=== PATIENT | female | born 1990 | race Caucasian/White ===

== ENCOUNTER 2017-11-03 12:53 | Emergency (ER) | payer OTHER, SELFPAY ==
[2017-11-03 12:55] VITALS: BP 127/83; PULSE 96; RESP 13; TEMP 37.2; O2SAT 99; BMI 24.1
[2017-11-03] MEDS: 0.9% Normal Saline 1,000 ML 999 ML IV (13:12)
[2017-11-03 13:20] LABS: Absolute Lymphocyte Count 1.51 X10^3/ul (0.83-4.51); Absolute Neutrophil Count 4.6 X10^3/uL (2.0-7.7); Basophil# 0.02 X10^3/uL; Basophil% 0.3 % (0-1); Eosinophil# 0.12 X10^3/uL; Eosinophils% 1.8 % (0-5); Hematocrit 37.8 % (37-47); Hemoglobin 12.2 g/dl (12.0-15.0); Lymphocyte # 1.51 X10^3/ul (4.0); Lymphocyte % 22.4 % (19-41); Mean Corp Hgb Conc 32.3 g/gl (32-36); Mean Corpuscular Hgb 26.9 pg (27.0-32.0); Mean Corpuscular Volume 83.3 fL (81-99); Mean Platelet Vol. 9.3 fl (6.2-12.0); Monocyte# 0.46 X10^3/uL; Monocyte% 6.8 % (0-10); Neutrophil # 4.63 X10^3/uL (2.7-7.7); Neutrophil % 68.7 % (47-70); POSITIVE COUNT NO; POSITIVE DIFFERENTIAL NO; POSITIVE MORPHOLOGY NO; Platelet Count 225 K/mm3 (150-450); RBC Distribution Width CV 13.6 % (11.6-14.6); RBC Distribution Width SD 41.5 fl (35.1-43.9); Red Blood Count 4.54 M/mm3 (4.2-5.4); White Blood Count 6.7 K/mm3 (4.4-11.0)
[2017-11-03 13:36] LABS: Phosphorus 2.7 mg/dL (2.5-4.9)
[2017-11-03 13:40] LABS: Anion Gap 9 (5-15); BUN 11 mg/dL (7-18); BUN/Creat Ratio 14.8 RATIO (10-20); Calcium,Total 8.6 mg/dL (8.5-10.1); Chloride 111 mmol/L (98-107); Creatinine, Serum 0.74 mg/dL (0.55-1.02); EST Glomerular Filtration Rate 98 mL/min (>60); Est Glom Filt Rate - Afr Amer 119 mL/min (>60); Estimated Creatinine Clearance 92.79 ml/min; Glucose 84 mg/dL (74-106); Magnesium 1.9 mg/dL (1.6-2.6); Potassium 3.6 mmol/L (3.5-5.1); Sodium Level 142 mmol/L (136-145)
[2017-11-03] MEDS: LORazepam 2 MG/ML Syringe 1 MG IV (13:54)
--- NOTE | 2017-11-03 14:49 | ED.VISSUMM ---
- ER Visit Summary Date of Service: 11/03/17 Chief Complaint: Seizure History of Present Illness: The patient is a 27 F presenting for evaluation secondary to a seizure. Patient has a underlying history of seizure disorder and is on Zonegran and Lamictal. She has had a significant amount of increased activity recently and actually traveled to [place] to [place]. She has been relatively fatigued recently, but states that she has not been missing any doses of her medications. Patient apparently had a tonic-clonic seizure today that lasted about 2 minutes was associated with tongue biting and a postictal episode. Patient typically has seizures about 4 times a year, last one was in August. No recent changes in medications. She has not recently followed up with her neurologist. She denies any recent illnesses. Review of systems otherwise negative. Physical Examination: Vital signs are within normal limits, patient is afebrile. General: Patient is well-nourished well-developed and in no acute distress. Head: Normocephalic, atraumatic Eyes: Pupils equal round and reactive bilaterally, extra occular motion intact bialterally ENT: Moist mucous membranes, evidence of superficial tongue laceration into the left lateral tongue Neck: Supple, no lymphadenopathy, no JVD, no meningismus CVS: Heart regular rate and rhythm, no murmurs, rubs or gallops, radial pulses 2+ bilaterally Resp: Respirations nondistressed, lung sounds clear bilaterally Abdomen: Soft, nontender, nondistended, no palpable masses, normal bowel sounds Back: Nontender Extremities: Nontender, atraumatic, active full range of motion, no peripheral edema Skin: warm, no rashes, no petechia Neuro: Alert and oriented x 4, CN 2-12 intact, no lateralizing neurological defecits Psyc: Normal affect Test Results: CBC unremarkable, chemistry unremarkable, magnesium and phosphorus unremarkable Lamictal level is pending Emergency Department Course and Treatment: Patient presented for evaluation secondary to a seizure, patient's laboratory workup was found to be unremarkable. She had full return to baseline while in the emergency department. Her mother was concerned because she was having some hand wringing. She was given Ativan and this seemed to improve. I had a discussion with the covering neurologist for the patient's neurologist at [facility], they recommended outpatient follow-up. Lamictal level is still pending. At this time the patient is safe for discharge to follow-up with neurology as an outpatient. Disposition: Discharge Impression: 1. Breakthrough seizure This note was generated with [employer] dictation software. It may contain incorrect words, spelling, and punctuation that were not noted in review of the chart prior to signing ED Disposition - Plan for ED Patient: Disposition: Home or Assisted Living Chief Complaint: Seizure Diagnosis: Breakthrough seizure Instructions: ED Seizure Recurrent Referrals: Ashly Morgan MD [STAFF PHYSICIAN] - As Needed Additional Instructions: Followup with Dr. Melita GREEN
[2017-11-03 15:10] VITALS: BP 112/69; PULSE 91; RESP 18; O2SAT 97
[2017-11-03 15:19] VITALS: BP 112/69; PULSE 88; RESP 12; O2SAT 97
[2017-11-08 10:16] LABS: Lamotrigine (Lamictal) Level 4.5 ug/mL (2.0-20.0)
== END 2017-11-03 15:20 | disposition home or self-care (01) ==
PROVIDERS: Emergency Provider Emergency Medicine; Family Provider Internal Medicine; PCP Internal Medicine
DX: G40.909 Epilepsy, unspecified, not intractable, without status epilepticus (principal)
CPT/HCPCS: 80048; 82542; 83735; 84100; 85025; 99285; J7030; A4216

== ENCOUNTER 2017-11-10 07:36 | Emergency (ER) | payer OTHER, SELFPAY ==
[2017-11-10 07:37] VITALS: BP 127/77; PULSE 88; RESP 17; TEMP 36.9; O2SAT 100; BMI 24.3
--- NOTE | 2017-11-10 08:18 | CT_ITS ---
STUDY: CT BRAIN WITHOUT CONTRAST REASON FOR EXAM: Female, 27 years old. Head injury due to seizures. History of epilepsy. RADIATION DOSAGE (If Supplied By Facility): CTDIvol = ( 44.99 ) mGy, DLP = ( 745.49 ) mGycm TECHNIQUE: Transaxial CT imaging of the brain was performed without administration of intravenous contrast material. Individualized dose optimization techniques were used for this CT. COMPARISON: Comparison is made with prior study dated November 11, 2015. FINDINGS: Normal soft tissue structures. Normal calvarium. Normal size ventricles and extra-axial spaces for the patient's age. Normal white matter tracts of the cerebral hemispheres. Normal basal ganglia and thalami. Normal brainstem. Normal cerebellum. There is no intracranial hemorrhage. There are no findings of an acute ischemic infarction. Normal visualized paranasal sinuses. CT/Brain/Head without Contrast IMPRESSION: Normal unenhanced CT scan of the brain. Electronically Signed: Mitchel Conrad MD at 9:17 EDT Tel [phone], Service support ,
[2017-11-10] MEDS: 0.9% Normal Saline 1,000 ML 999 ML IV (08:24)
[2017-11-10] MEDS: DiphenhydrAMINE 50 MG/ML Syringe IV (08:28)
[2017-11-10] MEDS: Ketorolac 30 MG/ML Syringe IV (08:29)
[2017-11-10] MEDS: Metoclopramide 10 MG/2 ML Vial IV (08:29)
[2017-11-10 08:59] LABS: Pregnancy, Serum, hCG Quali. NEGATIVE Negative (0-9 Nonpreg)
--- NOTE | 2017-11-10 09:05 | ED.VISSUMM ---
- ER Visit Summary Date of Service: 11/10/17 Chief Complaint: Headache History of Present Illness: The patient is a 27 F who sees Macy vivass an Dr. Hua, her neurologist at [facility] for seizures. She reports that she has a seizure disorder and last had a seizure November 03. She fell off the couch and hit her head. States that since this time she has had a headache. Is 9 out of 10 in severity and is been that way ever since the seizure. Is an aching pain in the occipital region. She reports that she is having difficulty remembering things and has been forgetting the day of the week for example. States that she was sent here today from work because she was acting different than usual and was not doing her typical routine. Patient reports feeling nauseated and that her brain feels heavy and jiggly. Patient does report that she has been nauseated, but has not vomited. She denies any fever, chills, sore throat, cough. No chest pain or shortness of breath. She has had no abdominal pain, vomiting, diarrhea. No dysuria or frequency. Her last menstrual period was 1 week ago. She denies any rash, numbness, or weakness. Physical Examination: Vitals: Stable. Afebrile. General: Well-nourished and well-developed. Head: Normocephalic atraumatic. Neck: Supple, no lymphadenopathy. No JVD. Nontender. Cardiovascular: Regular rate and rhythm. No murmurs. Respiratory: No respiratory distress. Clear to auscultation bilaterally. Abdominal: Soft, nontender, nondistended, normal bowel sounds. No guarding, rebound, or peritoneal signs. Back: Nontender. Extremities: Nontender, no edema. Skin: Normal color, no rash. Neurologic: Alert and oriented ?3. Cranial nerves II through XII are intact. Normal strength and sensation. Psych: Normal affect. Test Results: The test results from November 03 were reviewed. Her CBC was normal. Her Chem-7 was remarkable for a chloride of 111. Her phosphorus and magnesium were normal. Her Lamictal level has returned and was 4.5. CT brain today was normal. Emergency Department Course and Treatment: Patient had an IV placed. She was given liter bolus normal saline. She was given Toradol, Benadryl, and Reglan IV. Treatment Plan: Patient will be discharged instructions to follow-up with her primary care physician and/or her neurologist in 1 week for another exam. Return to the emergency department for any worsening symptoms. Disposition: To home in improved and stable condition. Impression: 1. Concussion. 2. Breakthrough seizure November 03, 2017. This note was generated with [employer] dictation software. It may contain incorrect words, spelling, and punctuation that were not noted in review of the chart prior to signing ED Disposition - Plan for ED Patient: Disposition: Home or Assisted Living Chief Complaint: Dizziness Instructions: ED Concussion Referrals: Lina Candelaria DO [Primary Care Provider] - 1 Week Gerald Gilmore MD [STAFF PHYSICIAN] - 1 Week
--- NOTE | 2017-11-10 09:08 | ED.DCSUM_ITS ---
- ER Visit Summary Date of Service: 11/10/17 Chief Complaint: Headache History of Present Illness: The patient is a 27 F who sees Macy vivass an Dr. Hua , her neurologist at [facility] for seizures. She reports that she has a seizure disorder and last had a seizure November 03. She fell off the couch and hit her head. States that since this time she has had a headache. Is 9 out of 10 in severity and is been that way ever since the seizure. Is an aching pain in the occipital region. She reports that she is having difficulty remembering things and has been forgetting the day of the week for example. States that she was sent here today from work because she was acting different than usual and was not doing her typical routine. Patient reports feeling nauseated and that her brain feels heavy and jiggly. Patient does report that she has been nauseated, but has not vomited. She denies any fever, chills, sore throat, cough. No chest pain or shortness of breath. She has had no abdominal pain, vomiting, diarrhea. No dysuria or frequency. Her last menstrual period was 1 week ago. She denies any rash, numbness, or weakness. Physical Examination: Vitals: Stable. Afebrile. General: Well-nourished and well-developed. Head: Normocephalic atraumatic. Neck: Supple, no lymphadenopathy. No JVD. Nontender. Cardiovascular: Regular rate and rhythm. No murmurs. Respiratory: No respiratory distress. Clear to auscultation bilaterally. Abdominal: Soft, nontender, nondistended, normal bowel sounds. No guarding, rebound, or peritoneal signs. Back: Nontender. Extremities: Nontender, no edema. Skin: Normal color, no rash. Neurologic: Alert and oriented ?3. Cranial nerves II through XII are intact. Normal strength and sensation. Psych: Normal affect. Test Results: The test results from November 03 were reviewed. Her CBC was normal. Her Chem-7 was remarkable for a chloride of 111. Her phosphorus and magnesium were normal. Her Lamictal level has returned and was 4.5. CT brain today was normal. Emergency Department Course and Treatment: Patient had an IV placed. She was given liter bolus normal saline. She was given Toradol, Benadryl, and Reglan IV. Treatment Plan: Patient will be discharged instructions to follow-up with her primary care physician and/or her neurologist in 1 week for another exam. Return to the emergency department for any worsening symptoms. Disposition: To home in improved and stable condition. Impression: 1. Concussion. 2. Breakthrough seizure November 03, 2017. This note was generated with [employer] dictation software. It may contain incorrect words, spelling, and punctuation that were not noted in review of the chart prior to signing ED Disposition - Plan for ED Patient: Disposition: Home or Assisted Living Chief Complaint: Dizziness Instructions: ED Concussion Referrals: Lina Candelaria DO [Primary Care Provider] - 1 Week Gerald Gilmore MD [STAFF PHYSICIAN] - 1 Week
[2017-11-10 11:31] VITALS: BP 124/71; PULSE 70; RESP 16; O2SAT 99
== END 2017-11-10 11:32 | disposition home or self-care (01) ==
LOC: ED 08:41
PROVIDERS: Emergency Provider Emergency Medicine; Family Provider Internal Medicine; PCP Internal Medicine
DX: S06.0X9A Concussion with loss of consciousness of unspecified duration, initial encounter (principal); W08.XXXA Fall from other furniture, initial encounter; Y93.89 Activity, other specified; Y92.9 Unspecified place or not applicable; Y99.9 Unspecified external cause status; G40.909 Epilepsy, unspecified, not intractable, without status epilepticus
CPT/HCPCS: 70450; 84703; 96361; 96374; 96375; 99283; J7030

== ENCOUNTER 2017-12-23 14:40 | Emergency (ER) | payer OTHER, SELFPAY ==
[2017-12-23 14:40] VITALS: BP 126/73; PULSE 85; RESP 16; TEMP 36.5; O2SAT 100; BMI 22.6
[2017-12-23] MEDS: 0.9% Normal Saline 1,000 ML 999 ML IV (15:07)
[2017-12-23] MEDS: DiphenhydrAMINE 50 MG/ML Syringe 25 MG IV (15:07)
[2017-12-23] MEDS: Metoclopramide 10 MG/2 ML Vial IV (15:08)
[2017-12-23] MEDS: Ketorolac 30 MG/ML Syringe IV (15:08)
[2017-12-23 15:16] VITALS: RESP 16
--- NOTE | 2017-12-23 16:00 | ED.VISSUMM ---
- ER Visit Summary Date of Service: 12/23/17 Chief Complaint: Pelvic right patient seen by practitioner at [facility] and sent to ER for further evaluation. Note that accompany person suggested CT of the brain/head with IV contrast because of visual changes rule out aneurysm and CT of the chest with IV contrast to rule out PE/dissection. History of Present Illness: The patient is a 27 F who presents with pleuritic chest pain. She had viral illness this past weekend. 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 She does complain a unilateral headache with binocular blurred vision. She denies any double vision or loss of vision. Denies ringing in her ears. She denies nasal congestion, postnasal drip or sore throat. She denies shortness of breath. She does complain of pain with breathing. She denies cough. Denies leg pain, swelling discoloration. She has no history of PE or DVT nor she have any risk factors. She has similar presentation several years ago was diagnosed with pleurisy. She reported GI symptoms past weekend. She presently has no GI symptoms. She has no symptoms. Please read written note for complete detail Physical Examination: Vital signs are noted and blood pressure slightly elevated 126/73. Head is atraumatic normocephalic. Pupils are equal round reactive. Extraocular muscles are intact. TMs are pearly white with landmarks noted. Nares patent with no drainage. Posterior pharynx without erythema or exudate. Uvula is midline. There is no dysphonia or dysphasia. Trachea is midline. There is no stridor with auscultation of the neck. Heart is regular without murmur, gallop or rub. S1 and S2 are normal. Lungs are clear to auscultation with good movement of air bilaterally. Abdomen soft nontender with normal bowel sounds. There is no asymmetry, swelling, discoloration, leg vein distention, palpable cords or tenderness along the distribution of the deep venous system. Patient is alert and oriented ?3. Motor is 5 over 5. Sensory is intact. DTRs are symmetric with no clonus or Babinski sign. Cranial 2 through 12 are intact. Cerebellar testing is normal. Gait was observed and normal. Test Results: None were obtained Emergency Department Course and Treatment: Since patient is PERC negative CT of the chest is not indicated. Patient does not have a thunderclap headache no nuchal rigidity or photophobia with a normal neuro exam in my professional opinion CT of the head is not indicated. Because she has been lightheaded with ocular symptoms will treat with Benadryl, Toradol and Reglan. She is now smiling which she was not. Her chest pain improved slightly. Treatment Plan: NSAIDs since no contraindication Disposition: Discharged to home with mother Impression: 1. Pleurisy secondary to recent viral illness 2. Unilateral headache suspect migraine variant This note was generated with [employer] dictation software. It may contain incorrect words, spelling, and punctuation that were not noted in review of the chart prior to signing ED Disposition - Plan for ED Patient: Disposition: Home or Assisted Living Chief Complaint: Chest Pain Instructions: ED Chest Pain Pleurisy Prescriptions: Naproxen [Naprosyn] 500 mg PO BID #10 tab Referrals: Macy Akins [Primary Care Provider] - 1 Week if not improving
[2017-12-23 16:14] VITALS: BP 107/66; PULSE 72; RESP 18; O2SAT 99
--- NOTE | 2017-12-23 16:15 | ED.RN ---
REVIEWED D/C INSTRUCTIONS, FOLLOW UP CARE, PRESCRIPTION, AND S/S THAT WOULD WARRANT A RETURN TO THE ED WITH PT. PT VERBALIZED AN UNDERSTANDING AND DENIES FURTHER QUESTIONS FOR THIS RN. PT SKIN P/W/D, RESP EVEN AND UNLABORED, PT A&O X 3, NO DISTRESS NOTED. PT AMBULATED OUT OF ED, GAIT STEADY.
== END 2017-12-23 16:16 | disposition home or self-care (01) ==
PROVIDERS: Emergency Provider Emergency Medicine; Family Provider Nurse Practitioner; PCP Nurse Practitioner
DX: B34.9 Viral infection, unspecified (principal); R09.1 Pleurisy; R51 Headache
CPT/HCPCS: 96361; 96374; 96375; 99283; J7030; A4216

== ENCOUNTER 2018-01-07 04:10 | Emergency (ER) | payer OTHER, SELFPAY ==
[2018-01-07 04:11] VITALS: PULSE 118; RESP 16; TEMP 36.2; O2SAT 97; BMI 24.0
[2018-01-07] MEDS: 0.9% Normal Saline 1,000 ML 150 ML IV (04:31)
[2018-01-07 04:36] LABS: Absolute Lymphocyte Count 2.28 X10^3/ul (0.83-4.51); Absolute Neutrophil Count 3.8 X10^3/uL (2.0-7.7); Basophil# 0.03 X10^3/uL; Basophil% 0.4 % (0-1); Eosinophil# 0.16 X10^3/uL; Eosinophils% 2.4 % (0-5); Hematocrit 38.4 % (37-47); Hemoglobin 12.6 g/dl (12.0-15.0); Lymphocyte # 2.28 X10^3/ul (4.0); Lymphocyte % 34.1 % (19-41); Mean Corp Hgb Conc 32.8 g/gl (32-36); Mean Corpuscular Hgb 27.3 pg (27.0-32.0); Mean Corpuscular Volume 83.3 fL (81-99); Mean Platelet Vol. 9.2 fl (6.2-12.0); Monocyte# 0.47 X10^3/uL; Neutrophil # 3.75 X10^3/uL (2.7-7.7); Neutrophil % 56.1 % (47-70); POSITIVE COUNT NO; POSITIVE DIFFERENTIAL NO; POSITIVE MORPHOLOGY NO; Platelet Count 220 K/mm3 (150-450); RBC Distribution Width CV 13.6 % (11.6-14.6); RBC Distribution Width SD 41.2 fl (35.1-43.9); Red Blood Count 4.61 M/mm3 (4.2-5.4); White Blood Count 6.7 K/mm3 (4.4-11.0)
[2018-01-07 04:52] LABS: ALB/GLOB Ratio 1.3 RATIO (0.9-2.4); AST(SGOT) 11 U/L (15-37); Alanine Aminotransfer ALT/SGPT 16 U/L (13-56); Alkaline Phosphatase 71 U/L (45-117); Anion Gap 9 (5-15); BUN 15 mg/dL (7-18); BUN/Creat Ratio 19.3 RATIO (10-20); Calcium,Total 8.7 mg/dL (8.5-10.1); Chloride 112 mmol/L (98-107); Creatinine, Serum 0.78 mg/dL (0.55-1.02); EST Glomerular Filtration Rate 93 mL/min (>60); Est Glom Filt Rate - Afr Amer 113 mL/min (>60); Estimated Creatinine Clearance 88.03 ml/min; Globulin 3.1 g/dL (2.2-4.2); Glucose 85 mg/dL (74-106); Potassium 3.5 mmol/L (3.5-5.1); Protein, Total 7.1 g/dL (6.4-8.2); Sodium Level 142 mmol/L (136-145)
[2018-01-07 04:57] LABS: Red Blood Cells-Urine 0 SEEN /hpf (0-5)
[2018-01-07 05:00] LABS: Color, Urine Yellow (Yellow); Glucose, Dipstick Normal (Normal); Ketone-Dipstick Negative (Negative); Leukocyte Esterase-Dipstick 100 /ul (Negative); Nitrite-Dipstick Negative (Negative); Occult Blood-Urine 10 /ul (Negative); Protein-Dipstick 15 mg/dl (Negative); Specific Gravity, Urine 1.015 (1.002-1.030); Urine Bilirubin Dipstick Negative (Negative); Urine Clarity Cloudy (Clear); Urine Urobilinogen Normal (Normal)
[2018-01-07 05:10] LABS: Pregnancy, Serum, hCG Quali. NEGATIVE Negative (0-9 Nonpreg)
[2018-01-07 05:12] LABS: Bacteria 1+ /hpf (None Seen); Squamous Epithelial Cells - UA 5-10 SEEN /hpf (5-10); White Blood Cells 5-10 SEEN /hpf (0-5)
[2018-01-07 05:13] LABS: Mucous, Urine 1+ /hpf (<or=2+)
--- NOTE | 2018-01-07 06:36 | ED.VISSUMM ---
- ER Visit Summary Date of Service: 01/07/18 Chief Complaint: [Seizure] History of Present Illness: The patient is a 27 F [presents the emergency department with a seizure that occurred this morning. Patient apparently had gotten up to get ready for work and took her child into her parents room. Patient then went to the kitchen and patient's mother heard a loud thud. Patient was found on the floor having whole body tonic-clonic like seizure. Patient's mother states the seizure lasted about a minute and then patient was postictal. Patient does have a history of seizures and her last seizure was November 03. Mother states that patient was given some traumatic news yesterday that her child had Asperger syndrome. Patient had her seizure medication adjusted recently by Dr. Gerald Gilmore. Patient's been compliant with her medications. She denies recent illness. Patient denies any complaints other than a headache currently.] Patient states that she initially felt like she was having some tunnel vision this morning when she woke up and took a Lorazepam trying to stave off a possible seizure. Physical Examination: [HEENT-PERRLA, EOMI. Cranial nerves II through XII grossly intact. TMs clear. Mucous membranes moist. No adenopathy. No external evidence of trauma to her head. Patient does have bite wounds noted to her tongue. Cardiovascular-regular rate and rhythm without murmur or ectopy Lungs-clear to auscultation, chest wall stable without crepitus or subcu emphysema Abdomen-normoactive bowel sounds, soft, nontender, no rebound or rigidity, no peritoneal signs. Neuro zlgb-dizuba-sflk and heel peters testing within normal limits, negative Romberg, negative pronator drift, fundi benign Extremities-intact ?4, normal range of motion, normal pulses, atraumatic] Test Results: [CT scan of the brain without contrast showed nothing acute. CBC with it was normal. Chemistries were normal. Urinalysis was normal. HCG was negative.] Emergency Department Course and Treatment: [Patient was observed in the department she had no further seizure activity. I attempted to contact Dr. Gerald Gilmore unsuccessfully and the patient no longer wants to wait. Patient will call the office today to discuss possible medication changes with Dr. Gilmore.] Treatment Plan: [Follow-up with Dr. Gerald Gilmore] Disposition: [Discharged home in stable condition] Impression: [Recurrent seizure] This note was generated with [employer] dictation software. It may contain incorrect words, spelling, and punctuation that were not noted in review of the chart prior to signing ED Disposition - Plan for ED Patient: Chief Complaint: Seizure Referrals: Macy Akins [Primary Care Provider] -
--- NOTE | 2018-01-07 06:41 | ED.DEP ---
ED Disposition - Plan for ED Patient: Chief Complaint: Seizure Instructions: ED Seizure Recurrent Referrals: Macy Akins [Primary Care Provider] - Additional Instructions: Call Dr. Gilmore to discuss possible medication changes
[2018-01-07 06:51] VITALS: BP 98/52; PULSE 99; RESP 16; O2SAT 99
== END 2018-01-07 06:51 | disposition home or self-care (01) ==
PROVIDERS: Emergency Provider Emergency Medicine; Family Provider Nurse Practitioner; PCP Nurse Practitioner
DX: G40.909 Epilepsy, unspecified, not intractable, without status epilepticus (principal); Z79.899 Other long term (current) drug therapy
CPT/HCPCS: 70450; 80053; 81001; 84703; 85025; 96360; 96361; 99285; J7030; A4216

== ENCOUNTER 2018-02-11 12:17 | Emergency (ER) | payer OTHER, SELFPAY ==
[2018-02-11 12:18] VITALS: BP 127/80; PULSE 106; RESP 17; TEMP 36.6; O2SAT 100; BMI 23.6
--- NOTE | 2018-02-11 13:34 | MRI_ITS ---
STUDY: MRI BRAIN WITH AND WITHOUT CONTRAST REASON FOR EXAM: Female, 27 years old. Slurred speech, migraines, weakness. TECHNIQUE: Standardized multiplanar fat and water weighted pulse sequences were obtained. 6 ml of Gadavist contrast material was administered intravenously for the contrast portion of the examination. COMPARISON: None. FINDINGS: There is no intracranial mass, mass effect or midline shift. There is no hemorrhage, infarct, or acute ischemia. Normal size of the ventricles and extra-axial spaces for the patient's age. Normal white matter tracts of the supratentorial brain. Normal bilateral basal ganglia. Normal thalami. There is no extra-axial fluid accumulation. Normal flow voids within the major intracranial circulation suggesting patency by spin echo criteria. Normal venous enhancement. There is no enhancing intra-axial or extra-axial abnormality. Normal sella turcica, pituitary gland, infundibular stalk, optic chiasm and hypothalamus. Normal tectal plate and pineal gland. Normal midbrain, irma and medulla. Normal cerebellum. Normal basal cisterns. Normal bilateral temporal bones. Normal bilateral internal auditory canals. No demonstrated orbital abnormality, within the constraints of a routine brain study. Normal visualized paranasal sinuses. Normal calvarium and skull base. Normal visualized soft tissue structures. Normal visualized upper cervical spine. MRI/Brain W/WO Contrast IMPRESSION: Normal unenhanced and enhanced MRI of the brain. Electronically Signed: Tesise Peacock MD at 16:40 EDT Tel , Service support ,
--- NOTE | 2018-02-11 14:00 | MRI_ITS ---
STUDY: MRI CERVICAL SPINE WITHOUT CONTRAST REASON FOR EXAM: Female, 27 years old. Slurred speech, dysphagia, night sweats. Hand weakness. TECHNIQUE: Standardized fat and water weighted pulse sequences were obtained in the sagittal and axial planes. COMPARISON: None FINDINGS: Normal foramen magnum and brainstem-cervical cord junction. Normal craniovertebral junction. Normal anterior atlantoaxial articulation. Normal odontoid process. Normal cervical lordosis. Normal vertebral bodies and posterior osseous elements. C2-3: Normal endplates. Normal disc height, signal and morphology. Normal central canal and intervertebral neural foramina. C3-4: Normal endplates. Normal disc height, signal and morphology. Normal central canal and intervertebral neural foramina. C4-5: Normal endplates. Normal disc height, signal and morphology. Normal central canal and intervertebral neural foramina. C5-6: Normal endplates. Normal disc height, signal and morphology. Normal central canal and intervertebral neural foramina. C6-7: Normal endplates. Normal disc height, signal and morphology. Normal central canal and intervertebral neural foramina. C7-T1: Normal endplates. Normal disc height, signal and morphology. Normal central canal and intervertebral neural foramina. Normal cervical cord. Normal visualized soft tissue structures. MRI/Spine Cervical (Routine) IMPRESSION: Normal unenhanced MR examination of the cervical spine. Electronically Signed: Tessie Peacock MD at 16:08 EDT Tel , Service support ,
--- NOTE | 2018-02-11 14:01 | PCM.CONS.GEN ---
Problem List (1) Slurred speech Status: Acute (2) Arm weakness Status: Acute Reason for Consult Date of Consultation: 02/11/18 Reason for Consultation: Arm weakness, slurred speech, seizures History of Present Illness: The patient is a 27 year old CF with PMH EPilepsy on Zonisamide 200 mg PO BID and Lamictal 400 mg PO Q AM and 200 mg PO q PM admitted with multiple complaints. Per patient she had seizures on January 07, 2018 following which she has been having slurred speech and difficulty swallowing, has gone to ENT specialist who started her on antibiotics and prednisone which has not helped her symptoms. She also complaints of right arm weakness since this morning following which she was asked to come to ED by her PCP. She denies any further seizures since January 07 2018, denies any BOURNE, visual disturbances, sensory loss. She feels her finger on the right hand may curl up, has some neck pain but denies any radicular symptoms. She follows up with me as outpatient for seizure management. She was initially seen by [facility] and by Dr. Hua from [facility] for epilepsy in the past, was intolerant to Keppra as had suicidal ideation. Past Medical History Past Medical History (Chronic Problems): Chronic Problems Epilepsy (Chronic) Allergies levetiracetam [From Keppra] Allergy (Verified 02/11/18 12:17) Other Penicillins Allergy (Verified 02/11/18 12:17) Rash Home Medications: Ambulatory Orders Medication Instructions Recorded Lamotrigine [Lamictal] 200 mg PO QHS 12/23/17 Zonisamide 200 mg PO BID 12/23/17 Lamotrigine [Lamictal] 400 mg PO DAILY 01/07/18 Lorazepam [Ativan] 1 mg PO DAILY PRN PRN 01/07/18 Etonogestrel [Nexplanon] 68 mg SQ CONT 02/11/18 Prednisone [Deltasone] 50 mg PO DAILY 02/11/18 Lives: - - With her mother and child Smoking Status: Never smoker Alcohol: None Drugs: None - *Family History Maternal History Items: No pertinent history Review of Systems Constitutional: Reports: - - complete ROS negative except as documented in HPI Patient Problems: Active and Suspected Problems Slurred speech (Acute) Arm weakness (Acute) - Physical Exam General: Alert HEENT: Normocephalic Neck: Supple Lungs: Normal air movement Cardiovascular: Normal S1, Normal S2 Abdomen: Bowel Sounds Present Extremities: No cyanosis Skin: No rashes Neurological: - - consious, alert, AoAx3, CN 2-12 grossly intact, power 5/5 all 4 extremities, did not apreciate any focal weakness at present, no sensory loss, no cerebellar signs, Reflexes + B/L B/S/T/K/A, no slurred speech on examination at present. Psych/Mental Status: Normal Affect Vital Signs Temp Pulse Resp BP Pulse Ox 97.8 F 106 H 17 127/80 H 100 02/11/18 12:18 02/11/18 12:18 02/11/18 12:18 02/11/18 12:18 02/11/18 12:18 Oxygen Delivery Method Room Air Weight: 58.513 kg Body Mass Index (BMI) 23.6 Finger Stick Blood Glucose 99 Assessment/Plan All Active Problems Slurred speech (Acute) Arm weakness (Acute) The patient is a 27 year old CF with PMH EPilepsy on Zonisamide 200 mg PO BID and Lamictal 400 mg PO Q AM and 200 mg PO q PM admitted with multiple complaints. Per patient she had seizures on January 07, 2018 following which she has been having slurred speech and difficulty swallowing, has gone to ENT specialist who started her on antibiotics and prednisone which has not helped her symptoms. She also complaints of right arm weakness since this morning following which she was asked to come to ED by her PCP. She denies any further seizures since January 07 2018, denies any BOURNE, visual disturbances, sensory loss. She feels her finger on the right hand may curl up, has some neck pain but denies any radicular symptoms. She follows up with me as outpatient for seizure management. She was initially seen by [facility] and by Dr. Hua from [facility] for epilepsy in the past, was intolerant to Keppra as had suicidal ideation. Impression H/O seizures ? Slurred speech and arm weakness, difficulty swallowing. Plan -Check MRI brain and MRI C spine w/o contrast -Check ACH receptor binding/blocking and modulating ab -Continue home dose of seizure medications Zonisamide and Lamictal -If neuroimaging is negative, may require further evaluation with psychiatry/psychology. -Discussed about stress at present and patient has denied having any stress -May need swallow evaluation and speech therapy referral -GI/DVT prophylaxis -Fall precautions -Seizure precautions -Please call with questions if any -Follow up with Neurology as outpatient. -Thank you for allowing us to participate in patient's care and management. Code Visit Inpatient E&M: 00671 Init Hosp L3
[2018-02-11] MEDS: 0.9% Normal Saline 1,000 ML 150 ML IV (14:05)
[2018-02-11 14:21] LABS: Absolute Lymphocyte Count 0.48 X10^3/ul (0.83-4.51); Absolute Neutrophil Count 8.7 X10^3/uL (2.0-7.7); Basophil# 0.01 X10^3/uL; Basophil% 0.1 % (0-1); Hematocrit 37.2 % (37-47); Hemoglobin 12.8 g/dl (12.0-15.0); Lymphocyte # 0.48 X10^3/ul (4.0); Lymphocyte % 5.2 % (19-41); Mean Corp Hgb Conc 34.4 g/gl (32-36); Mean Corpuscular Hgb 28.8 pg (27.0-32.0); Mean Corpuscular Volume 83.8 fL (81-99); Mean Platelet Vol. 9.5 fl (6.2-12.0); Monocyte# 0.08 X10^3/uL; Monocyte% 0.9 % (0-10); Neutrophil # 8.69 X10^3/uL (2.7-7.7); Neutrophil % 93.7 % (47-70); Platelet Count 265 K/mm3 (150-450); RBC Distribution Width CV 13.3 % (11.6-14.6); RBC Distribution Width SD 40.5 fl (35.1-43.9); Red Blood Count 4.44 M/mm3 (4.2-5.4); White Blood Count 9.3 K/mm3 (4.4-11.0)
[2018-02-11 14:22] LABS: Differential Indicated SCAN CRITERIA MET; POSITIVE COUNT NO; POSITIVE DIFFERENTIAL YES; POSITIVE MORPHOLOGY NO
[2018-02-11 14:35] LABS: Anion Gap 9 (5-15); BUN 12 mg/dL (7-18); BUN/Creat Ratio 13.6 RATIO (10-20); Calcium,Total 8.8 mg/dL (8.5-10.1); Chloride 110 mmol/L (98-107); Creatinine, Serum 0.88 mg/dL (0.55-1.02); EST Glomerular Filtration Rate 81 mL/min (>60); Est Glom Filt Rate - Afr Amer 97 mL/min (>60); Glucose 115 mg/dL (74-106); Potassium 3.3 mmol/L (3.5-5.1); Sodium Level 138 mmol/L (136-145)
[2018-02-11 14:40] LABS: Hypersegmented Neutrophils RARE
[2018-02-11 16:18] VITALS: BP 109/70; PULSE 102; RESP 16; O2SAT 100
--- NOTE | 2018-02-11 16:53 | ED.DEP ---
ED Disposition - Plan for ED Patient: Chief Complaint: Weakness Instructions: ED Weakness [facility] Referrals: Macy Akins, DASHA-C [Primary Care Provider] - Gerald Gilmore MD [STAFF PHYSICIAN] - 3-5 Days
--- NOTE | 2018-02-11 16:55 | ED.VISSUMM ---
- ER Visit Summary Date of Service: 02/11/18 Chief Complaint: [Slurred speech, difficulty swallowing, and right hand weakness] History of Present Illness: The patient is a 27 F [presents to the emergency department with multiple complaints today. Patient was seen at her primary care physician's office and sent to the ER for further workup and evaluation. Patient states that she has had 2 seizures in the last 3 months both of which resulted in head injury and concussion. Patient's last seizure was January 07 at which time she did hit her head and had a CT scan of her head which was unremarkable. Patient does have a history of migraines, epilepsy, and history of pleurisy. Patient gives history that she has had intermittent episodes since her seizure of slurred speech as well as difficulty swallowing specifically complaining of masslike sensation left side of her neck making it difficult to swallow. Patient today also complaining of intermittent episodes of weakness in her right hand and having a hard time writing. Patient denies any recent fever or illness. She denies any falls or head injuries. Patient was seen by her ear nose and throat physician 2 days ago and had nasopharyngoscopy that showed some abnormal discoloration of left side of her throat and she was started on Bactrim and prednisone. This treatment has made no difference in her symptomatology.] Physical Examination: [HEENT-PERRLA, EOMI. Cranial nerves II through XII grossly intact. TMs clear. Mucous membranes moist. No adenopathy. Cardiovascular-regular rate and rhythm without murmur or ectopy Lungs-clear to auscultation, chest wall stable without crepitus or subcu emphysema Abdomen-normoactive bowel sounds, soft, nontender, no rebound or rigidity, no peritoneal signs. Neuro gpfj-beaqjv-rzmr and heel peters testing within normal limits, negative Romberg, negative , Fundi benign. NIH stroke scale was 0 here. There is no objective weakness noted of the right hand. Extremities-intact ?4, normal range of motion, normal pulses, atraumatic] Test Results: [CBC with differential was normal. Chemistries showed a slightly depressed potassium of 3.3 for which I did give her 40 mEq of potassium chloride. MRI of the brain with and without contrast was normal. MRI of the cervical spine was normal.] Emergency Department Course and Treatment: [Patient case was discussed with neurologist on-call Dr. Cathy] who asked that we obtain the MRI of the head and C-spine. Treatment Plan: [Follow-up with neurology on an outpatient basis and consider follow-up with psychiatry as well. Cannot rule out anxiety or stress reaction as possible etiology of her symptoms however patient does not believe this to be the case and does not feel like she is stressed.] Disposition: [Discharged home in stable condition] Impression: [Dysarthria etiology uncertain Dysphasia-etiology uncertain Right hand weakness-etiology uncertain] This note was generated with [employer] dictation software. It may contain incorrect words, spelling, and punctuation that were not noted in review of the chart prior to signing ED Disposition - Plan for ED Patient: Chief Complaint: Weakness Instructions: ED Weakness [facility] Referrals: Gerald Gilmore MD [STAFF PHYSICIAN] - 3-5 Days Macy Akins NP-Robert [Primary Care Provider] -
--- NOTE | 2018-02-11 17:00 | ED.DCSUM_ITS ---
- ER Visit Summary Date of Service: 02/11/18 Chief Complaint: [Slurred speech, difficulty swallowing, and right hand weakness] History of Present Illness: The patient is a 27 F [presents to the emergency department with multiple complaints today. Patient was seen at her primary care physician's office and sent to the ER for further workup and evaluation. Patient states that she has had 2 seizures in the last 3 months both of which resulted in head injury and concussion. Patient's last seizure was January 07 at which time she did hit her head and had a CT scan of her head which was unremarkable. Patient does have a history of migraines, epilepsy, and history of pleurisy. Patient gives history that she has had intermittent episodes since her seizure of slurred speech as well as difficulty swallowing specifically complaining of masslike sensation left side of her neck making it difficult to s wallow. Patient today also complaining of intermittent episodes of weakness in her right hand and having a hard time writing. Patient denies any recent fever or illness. She denies any falls or head injuries. Patient was seen by her ear nose and throat physician 2 days ago and had nasopharyngoscopy that showed some abnormal discoloration of left side of her throat and she was started on Bactri m and prednisone. This treatment has made no difference in her symptomatology.] Physical Examination: [HEENT-PERRLA, EOMI. Cranial nerves II through XII grossly intact. TMs clear. Mucous membranes moist. No adenopathy. Cardiovascular-regular rate and rhythm without murmur or ectopy Lungs-clear to auscultation, chest wall stable without crepitus or subcu emphysema Abdomen-normoactive bowel sounds, soft, nontender, no rebound or rigidity, no peritoneal signs. Neuro gtym-albtdl-lbve and heel peters testing within normal limits, negative Romberg, negative , Fundi benign. NIH stroke scale was 0 here. There is no objective weakness noted of the right hand. Extremities-intact ?4, normal range of motion, normal pulses, atraumatic] Test Results: [CBC with differential was normal. Chemistries showed a slightly depressed potassium of 3.3 for which I did give her 40 mEq of potassium chloride. MRI of the brain with and without contrast was normal. MRI of the cervical spine was normal.] Emergency Department Course and Treatment: [Patient case was discussed with neurologist on-call Dr. Morgan] who asked that we obtain the MRI of the head and C-spine. Treatment Plan: [Follow-up with neurology on an outpatient basis and consider follow-up with psychiatry as well. Cannot rule out anxiety or stress reaction as possible etiology of her symptoms however patient does not believe this to be the case and does not feel like she is stressed.] Disposition: [Discharged home in stable condition] Impression: [Dysarthria etiology uncertain Dysphasia-etiology uncertain Right hand weakness-etiology uncertain] This note was generated with [employer] dictation software. It may contain incorrect words, spelling, and punctuation that were not noted in review of the chart prior to signing ED Disposition - Plan for ED Patient: Chief Complaint: Weakness Instructions: ED Weakness [facility] Referrals: Gerald Gilmore MD [STAFF PHYSICIAN] - 3-5 Days Macy Akins NP-C [Primary Care Provider] -
[2018-02-11 17:11] VITALS: RESP 16
--- NOTE | 2018-02-11 17:12 | ED.RN ---
REVIEWED D/C INSTRUCTIONS, FOLLOW UP CARE, AND S/S THAT WOULD WARRANT A RETURN TO THE ED WITH PT. PT VERBALIZED AN UNDERSTANDING AND DENIES FURTHER QUESTIONS FOR THIS RN. PT SKIN P/W/D, RESP EVEN AND UNLABORED, PT A&O X 3, NO DISTRESS NOTED. PT AMBULATED OUT OF ED, GAIT STEADY.
[2018-03-04 12:41] LABS: ACHR AB Modulating 56 % (0-20); ACHR Recep AB, Blocking 45 % (0-25)
== END 2018-02-11 17:22 | disposition home or self-care (01) ==
PROVIDERS: Psychiatry & Neurology Neurology; Emergency Provider Emergency Medicine; Family Provider Nurse Practitioner; PCP Nurse Practitioner
DX: R47.1 Dysarthria and anarthria (principal); R47.02 Dysphasia; R53.1 Weakness; G40.909 Epilepsy, unspecified, not intractable, without status epilepticus
CPT/HCPCS: 70553; 72141; 80048; 83519; 85025; 96360; 96361; 99283; A9585; J7030

== ENCOUNTER → 2018-02-15 15:46 | Outpatient (CLI) | payer OTHER, SELFPAY ==
--- NOTE | 2018-02-15 15:50 | RAD_ITS ---
STUDY: X-RAY CHEST REASON FOR EXAM: Female, 27 years old. Shortness of breath TECHNIQUE: Frontal and lateral views of the chest COMPARISON: 05/13/2016 FINDINGS: The lungs are clear. There are no pleural effusions. There is no pneumothorax. The heart is normal in size. The visualized osseous structures are within normal limits. RAD/Chest PA and Lateral IMPRESSION: No acute thoracic pathology. Electronically Signed: Dejuan Chase, at 16:16 EDT Tel , Service support ,
== END ==
PROVIDERS: Family Provider Nurse Practitioner; PCP Nurse Practitioner; Referring Provider Nurse Practitioner Acute Care; Visit Provider Nurse Practitioner Acute Care
DX: R06.02 Shortness of breath (principal)
CPT/HCPCS: 71046

== ENCOUNTER → 2018-04-15 15:48 | Outpatient (CLI) | payer OTHER, SELFPAY ==
--- NOTE | 2018-04-15 15:58 | CT_ITS ---
STUDY: CT CHEST WITHOUT CONTRAST REASON FOR EXAM: Female, 27 years old. Myasthenia gravis RADIATION DOSAGE (If Supplied By Facility): CTDIvol = ( 9.54 ) mGy, DLP = ( 314.74 ) mGycm TECHNIQUE: Transaxial imaging was performed without the administration of intravenous contrast material. Multiplanar coronal and sagittal images were reformatted. Individualized dose optimization techniques were used for this CT. COMPARISON: 05/20/2016 FINDINGS: The lungs are normal. There is no demonstrated pleural abnormality. Normal heart and pericardium. Triangular soft tissue density in the anterior mediastinum is compatible with residual thymic tissue, similar since the prior study. No mediastinal mass. Normal hilar regions. Normal unenhanced pulmonary arteries. Normal aorta arch and descending thoracic aorta. Normal osseous structures. There is no demonstrated abnormality of the visualized upper abdomen. CT/Chest without Contrast IMPRESSION: Normal unenhanced CT Chest examination. Stable exam. No mediastinal mass. Electronically Signed: Zach Mercado MD at 23:47 EST , Service support ,
--- OUTSIDE RECORDS SUMMARY | 2018-07-20 06:32 | XMS RPT_ITS | Continuity of Care Document ---
:1990 Author Organization [facility] Address [address] [place] [address] Phone Care Team Providers Name Role Phone Macy Akins CNP Unavailable Everton Khan MD Unavailable Macy Ramirez Unavailable Khurram Lawrence MD Unavailable Virgil Barnett [place] Unavailable Madai Dunbar Unavailable Unavailable Alethea Iqbal Unavailable Unavailable Long Nancy HENRY Unavailable Unavailable CARL Portillo Unavailable Unavailable Unavailable Unavailable Problems Name Dates Details Atypical chest pain (R07.89, 786.59) Comments: pleurisy versus other? 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 Hua at [facility] who sees her for rudy worley and jun t to neurologist at [facility] but not optimal interactionhas used metaxalone without relief, was taking tylenol for headaches Status: Active Blurred vision, bilateral (H53.8, 368.8) Status: Active BMI 21.0-21.9, adult (Z68.21, V85.1) Status: Active BMI 22.0-22.9, adult (Z68.22, V85.1) Status: Active BMI 23.0-23.9, adult (Z68.23, V85.1) Status: Active BMI 23.0-23.9, adult (Z68.23, V85.1) Status: Active Bone pain (M89.8X9, 733.90) Status: Active Chest pain (R07.9, 786.50) Status: Active Cough (R05, 786.2) Status: Active Cough (R05, 786.2) Comments: gone Status: Active Dysphagia (R13.10, 787.20) Comments: period of dysphagia at work, sent home Status: Active Epilepsy (G40.909, 345.90) Comments: on lamictal and zonisamide Status: Active Eye pain, left (H57.12, 379.91) Comments: cluster almaraz? opth migraine?-- vs eye pathology ?-- called dr long office and she will see her today at 10:30 Status: Active Facial pressure (R68.89, 780.99) Status: Active Fatigue (R53.83, 780.79) Status: Active Fatigue (R53.83, 780.79) Comments: chronic pain causing fatiue Status: Active Flu-like symptoms (R68.89, 780.99) Status: Active History of anorexia nervosa (Z86.59, V11.8) Status: Active History of parotitis (Z87.19, V12.79) Status: Active Lymph node enlargement (R59.9, 785.6) Comments: left side of face Status: Active Mild asthma (J45.998, 493.90) Comments: stable now Status: Active Muscle spasm (M62.838, 728.85) Comments: massage therapy Status: Active Night sweats (R61, 780.8) Status: Active Non-smoker (Z78.9, V49.89) Status: Active Pain in clavicular joint (M25.519, 719.41) Comments: ? arthritis like picture vs anatomic changes reviewed recent chest xray normal, echo normal Ekg normal stress test pending CT is pending for resp workup for SOB per pulm, will get labs and reevaluate, follow up 3 weeks Status: Active Parotiditis (K11.20, 527.2) Comments: diagnosed in [place] ? recurrance Status: Active Salivary gland enlargement (K11.1, 527.1) Comments: was given clinda and prednisone Status: Active Screening examination for pulmonary tuberculosis (Z11.1, V74.1) Status: Active Sinusitis, bacterial (J32.9, 473.9) Status: Active Slurred speech (R47.81, 784.59) Comments: work mates had her leave work because of slurred speech Status: Active Sore throat (J02.9, 462) Status: Active Unspecified Diagnosis Status: Active vaginal Comments: 2011 Status: Active Vitamin D deficiency (E55.9, 268.9) Status: Active Weakness of hand (R29.898, 728.87) Status: Active Weight loss (R63.4, 783.21) Status: Active Medications Name Dates Details Bactrim 400-80 MG Oral Tablet Active bid x6 days (400-80 MG) LAMICTAL XR, 100MG (Oral Tablet Extended Release 24 Hour) 1 (one) Tablet ER 24HR two times daily for 0 days Quantity: 60 {Tablet} Refills: 0 Ordered:31-May-2015 Bari LOWERY Lina Start : 31-May-2015 Active nextplanon Active PredniSONE 10 MG Oral Tablet daily x6 days (10 MG) Active PriLOSEC OTC 20 MG Oral Tablet Delayed Release 1 (one) Tablet Tablet daily as directed for 0 days Quantity: 30 {Tablet} Refills: 0 Ordered:24-Jan-2018 Madai Dunbar Start : 24-Dec-2017 Active ProAir HFA 108 (90 Base) MCG/ACT Inhalation Aerosol Solution 2 (two) Puff Puff tid to qid for 0 days Quantity: 1 {Inhaler} Refills: 2 Ordered:24-Dec-2017 Madai Dunbar Start : 24-Dec-2017 Active ZONISAMIDE, 100MG (Oral Capsule) 3 (three) Capsule daily for 0 days Quantity: 90 {Capsule} Refills: 0 Ordered:28-May-2015 Soha Perdomo MD Start : 28-May-2015 Active Asmanex 7 Metered Doses 110 MCG/INH Inhalation Aerosol Powder Breath Activated 1 (one) Puff bid for 0 days Quantity: 2 {Inhalation} Refills: 0 Ordered:02-Mar-2017 Prerna DeL a Garza LPN Start : 10-Feb-2017 End : 02-Mar-2017 Inactive Biaxin 500 MG Oral Tablet 1 (one) Tablet bid for 7 days Quantity: 14 {Tablet} Refills: 0 Ordered:24-Jan-2018 Macy Akins CNP, CNP, Mary E Start : 24-Jan-2018 End : 31-Jan-2018 Inactive BIAXIN XL PAC, 500MG (Oral Tablet Extended Release 24 Hour) 2 (two) Tablet ER 24HR daily for 10 days Quantity: 20 {Tablet} Refills: 0 Ordered:09-Aug-2015 Macy Akins CNP, CNP, Mary E Start : 09-Aug-2015 End : 19-Aug-2015 Inactive Clindamycin HCl 150 MG Oral Capsule one tab q6hrs (150 MG) Inactive Ergocalciferol 12687 UNIT Oral Capsule 1 (one) Capsule Capsule twice week for 0 days Quantity: 24 {QS} Refills: 0 Ordered:30-Nov-2017 Kaylyn Juares Start : 30-Oct-2015 End : 30-Nov-2017 Inactive LORazepam 1 MG Oral Tablet 1 (one) Tablet daily as needed for 30 days Quantity: 30 {Tablet} Refills: 0 Ordered:31-Jan-2016 Mable BANSAL Macy Diggs CNP Start : 31-Jan-2016 End : 01-Mar-2016 Inactive Comments:Medication taken as needed. Magnesium 200 MG Oral Tablet 2 (two) Tablet daily for 30 days Refills: 0 Ordered:31-Jan-2016 Macy Akins CNP, CNP, Mary E Start : 31-Jan-2016 End : 01-Mar-2016 Inactive Metaxalone 800 MG Oral Tablet 1 (one) Tablet tid prn for 0 days Quantity: 20 {Tablet} Refills: 0 Ordered:30-Nov-2017 Kaylyn Juares Start : 31-May-2017 End : 30-Nov-2017 Inactive ZORVOLEX, 18MG (Oral Capsule) 1 (one) Capsule tid for 2 days Quantity: 6 {Capsule} Refills: 0 Ordered:01-Mar-2015 Macy Akins CNP, CNP, Mary E Start : 26-Feb-2015 End : 28-Feb-2015 Inactive ASMANEX 14 METERED DOSES, 220MCG/INH (Inhalation Aerosol Powder Breath Activated) 1 (one) Puff bid for 0 days Quantity: 1 {Inhaler} Refills: 3 Ordered:09-Aug-2015 Faridarb CARLUria Start : 01-Mar-2015 End : 09-Aug-2015 Discontinued KETOROLAC TROMETHAMINE, 10MG (Oral Tablet) 1 (one) Tablet q 6 hrs prn for 30 days Quantity: 20 {Tablet} Refills: 0 Ordered:01-Mar-2015 Faridarb CARL Prerna Start : 26-Feb-2015 End : 01-Mar-2015 Discontinued PROTONIX, 20MG (Oral Tablet Delayed Release) 1 (one) Tablet DR daily for 15 days Quantity: 15 {Tablet} Refills: 0 Ordered:01-Mar-2015 Faridarb CARL Prerna Start : 26-Feb-2015 End : 01-Mar-2015 Discontinued VALIUM, 5MG (Oral Tablet) 1 (one) Tablet x1 for 0 days Quantity: 1 {Tablet} Refills: 0 Ordered:09-Aug-2015 Frederic HENRY Prerna Start : 28-Jun-2015 End : 09-Aug-2015 Discontinued Comments:one VITAMIN D3 MAXIMUM STRENGTH, 5000UNIT (Oral Capsule) 1 (one) Capsule Capsule qd for 120 days Refills: 0 Ordered:30-Aug-2015 Frederic HENRY Prerna Start : 28-Jun-2015 End : 30-Aug-2015 Discontinued Zithromax Z-Chris 250 MG Oral Tablet 1 (one) Tablet TAD for 0 days Quantity: 1 {Package} Refills: 0 Ordered:23-Dec-2017 Madai Dunbar Start : 30-Nov-2017 End : 23-Dec-2017 Discontinued Allergies and Adverse Reactions Name Dates Details Keppra *ANTICONVULSANTS* (Allergy) Status: Active Penicillin V Potassium *PENICILLINS* (Allergy) Reaction: Rash Status: Active Past Medical History Name Dates Details BMI 21.0-21.9, adult (Z68.21, V85.1) Status: Inactive as of 02-Mar-2017 BMI between 19-24,adult (V85.1) Status: Inactive as of 10-Feb-2017 Chest tightness (R07.89, 786.59) Status: Inactive as of 02-Mar-2017 Nausea (R11.0, 787.02) Status: Inactive as of 10-Feb-2017 Pain, flank, bilateral (R10.9, 789.09) Status: Inactive as of 10-Feb-2017 Pleurisy (R09.1, 511.0) Comments: To ER records reviewed, encourage brandon Status: Inactive as of 10-Feb-2017 Sinus pressure (J34.89, 478.19) Status: Inactive as of 02-Mar-2017 Procedures Procedure Dates Details Appendectomy Completed Comments: 2004 Hip surgery right Completed Comments: 2012 Date Value Details 15-Feb-2018 Chest PA and Lateral Result: Comments: See Note; NOTES: [facility] Imaging Services [address] [place] [address] Chest PA and Lateral MR#: [id number] Acct: [id number] Name: DOUG MORIN Rep #: [id number] : 1990 F 27 From: Dejuan Chase MD PCP: Macy Akins NP Status: REG CLI Study: Chest PA and Lateral Date of Exam: 02/15/18 Exam# [id number] Ordering Dr: Lizz Hu NP-Robert STUDY: X-RAY CHEST REASON FOR EXAM: Female, 27 years old. Shortness of breath TECHNIQUE: Frontal and lateral views of the chest COMPARISON: 05/13/2016 FINDINGS: The lungs are clear. There are no pleural effusions. There is no pneumothorax. The heart is normal in size. The visualized osseous structures are within normal limits. 0098 RAD/Chest PA and Lateral IMPRESSION: No acute thoracic pathology. Electronically Signed: Dejuan Chase, at 16:16 EDT Tel , Service support , Fax CC: Macy Akins NP; DASHA Hu Canine Service Instructor Trainer: Signed 14-Feb-2018 Consultation Result: Comments: See Note; NOTES: [facility] Medical Records Department [address] [place] [address] Consultation 02/11/18 1401 MR#: [id number] Acct: [id number] Name: DOUG MORIN ep #: [id number] : 1990 27 From: Ashly Morgan MD PCP: Macy Akins NP Status: DEP ER Y Location: ED Problem List (1) Slurred speech Status: Acute (2) Arm weakness Status: Acute Reas on for Consult Date of Consultation: 02/11/18 Reason for Consultation: Arm weakness, slurred speech, seizures History of Present Illness: The patient is a 27 year old CF with PMH EPilepsy on Zonisamide 200 mg PO BID and Lamictal 400 mg PO Q AM and 200 mg PO q PM admitted with multiple complaints. Per patient she had seizures on January 07, 2018 following which she has been having slurred speech an d difficulty swallowing, has gone to ENT specialist who started her on antibiotics and prednisone which has not helped her symptoms. She also complaints of right arm weakness since this morning followin g which she was asked to come to ED by her PCP. She denies any further seizures since January 07 2018, denies any ALMARAZ, visual disturbances, sensory loss. She feels her finger on the right hand may cur l up, has some neck pain but denies any radicular symptoms. She follows up with me as outpatient for seizure management. She was initially seen by [facility] and by Dr. Hua from [facility] for epilepsy in past, was intolerant to Keppra as had suicidal ideation. Past Medical History Past Medical History (Chronic Problems): Chronic Problems Epilepsy (Chronic) Allergies levetiracetam [From Keppra] A llergy (Verified 02/11/18 12:17) Other Penicillins Allergy (Verified 02/11/18 12:17) Rash Home Medications: Ambulatory Orders Medication Instructions Recorded Lamotrigine [Lamictal] 200 mg PO QHS Zonisamide 200 mg PO BID 12/23/17 Lamotrigine [Lamictal] 400 mg PO DAILY 01/07/18 Lives: - - With her mother and child Smoking Status: Never smoker Alcohol: None Drugs: None - *Family History * * Maternal History Items: No pertinent history Review of Systems Constitutional: Reports: - - complete ROS negative except as documented in HPI Patient Problems: Active and Suspected Problems Slurred speech (Acute) Arm weakness (Acute) - Physical Exam General: Alert HEENT: Normocephalic Neck: Supple Lungs: Normal air movement Cardiovascular: Normal S1, Normal S2 Abdomen: Bowel Sounds Present Extr emities: No cyanosis Skin: No rashes Neurological: - - consious, alert, AoAx3, CN 2-12 grossly intact, power 5/5 all 4 extremities, did not apreciate any focal weakness at present, no sensory loss, no c erebellar signs, Reflexes + B/L B/S/T/K/A, no slurred speech on examination at present. Psych/Mental Status: Normal Affect Vital Signs Temp Pulse Resp BP Pulse Ox 97.8 F 106 H 17 127/80 H 100 02/11/18 12:18 02/11/18 12:18 02/11/18 12:18 02/11/18 12:18 02/11/18 12:18 Oxygen Delivery Method Room Air Weight: 58.513 kg Body Mass Index (BMI) 23.6 Finger Stick Blood Glucose 99 Assessment/Plan All Act forest Problems Slurred speech (Acute) Arm weakness (Acute) The patient is a 27 year old CF with PMH EPilepsy on Zonisamide 200 mg PO BID and Lamictal 400 mg PO Q AM and 200 mg PO q PM admitted with mu ltiple complaints. Per patient she had seizures on January 07, 2018 following which she has been having slurred speech and difficulty swallowing, has gone to ENT specialist who started her on antibio tics and prednisone which has not helped her symptoms. She also complaints of right arm weakness since this morning following which she was asked to come to ED by her PCP. She denies any further seizure s since January 07 2018, denies any ALMARAZ, visual disturbances, sensory loss. She feels her finger on the right hand may curl up, has some neck pain but denies any radicular symptoms. She follows up jake guidry md as outpatient for seizure management. She was initially seen by [facility] and by Dr. Hua from [facility] for epilepsy in the past, was intolerant to Keppra as had suicidal ideation. Impression H/O sei zures ? Slurred speech and arm weakness, difficulty swallowing. Plan -Check MRI brain and MRI C spine w/o contrast -Check ACH receptor binding/blocking and modulating ab -Continue home dose of seizure medications Zonisamide and Lamictal -If neuroimaging is negative, may require further evaluation with psychiatry/psychology. -Discussed about stress at present and patient has denied having any stress - May need swallow evaluation and speech therapy referral -GI/DVT prophylaxis -Fall precautions -Seizure precautions -Please call with questions if any -Follow up with Neurology as outpatient. -Thank you for allowing us to participate in patient's care and management. Code Visit Inpatient E AND M: [id number] Init Hosp L3 02/14/18 1117 <Electronically signed by Ashly Morgan MD> Date Ashly Morgan MD Cosigner Signature (if applicable): Date CC: Macy Akins NP Signed 11-Feb-2018 Emergency Department Summary Result: Comments: See Note; NOTES: [facility] Medical Records Department [address] [place] [address] Emergency Department Summary 02/11/18 1655 MR#: [id number] Acct: [id number] Name: DOUG MORIN Rep #: [id number] : 1990 27 From: Naomi Durbin DO PCP: Macy Akins NP Status: DEP ER - ER Visit Summary Date of Service: 02/11/18 Chief Complaint: [Slurred speech, difficulty s wallowing, and right hand weakness] History of Present Illness: The patient is a 27 F [presents to the emergency department with multiple complaints today. Patient was seen at her primary care physicia n's office and sent to the ER for further workup and evaluation. Patient states that she has had 2 seizures in the last 3 months both of which resulted in head injury and concussion. Patient's last seiz ure was January 07 at which time she did hit her head and had a CT scan of her head which was unremarkable. Patient does have a history of migraines, epilepsy, and history of pleurisy. Patient gives hi story that she has had intermittent episodes since her seizure of slurred speech as well as difficulty swallowing specifically complaining of masslike sensation left side of her neck making it difficult to swallow. Patient today also complaining of intermittent episodes of weakness in her right hand and having a hard time writing. Patient denies any recent fever or illness. She denies any falls or hea d injuries. Patient was seen by her ear nose and throat physician 2 days ago and had nasopharyngoscopy that showed some abnormal discoloration of left side of her throat and she was started on Bactrim a nd prednisone. This treatment has made no difference in her symptomatology.] Physical Examination: [HEENT-PERRLA, EOMI. Cranial nerves II through XII grossly intact. TMs clear. Mucous membranes moist. No adenopathy. Cardiovascular-regular rate and rhythm without murmur or ectopy Lungs-clear to auscultation, chest wall stable without crepitus or subcu emphysema Abdomen-normoactive bowel sounds, sof t, nontender, no rebound or rigidity, no peritoneal signs. Neuro jktk-[id number]-[id number] and heel peters testing within normal limits, negative Romberg, negative , Fundi benign. NIH stroke scale was 0 here. Th ere is no objective weakness noted of the right hand. Extremities-intact 4, normal range of motion, normal pulses, atraumatic] Test Results: [CBC with differential was normal. Chemistries showed a sli ghtly depressed potassium of 3.3 for which I did give her 40 mEq of potassium chloride. MRI of the brain with and without contrast was normal. MRI of the cervical spine was normal.] Emergency Departmen t Course and Treatment: [Patient case was discussed with neurologist on-call Dr. Morgan] who asked that we obtain the MRI of the head and C-spine. Treatment Plan: [Follow-up with neurology on an ou tpatient basis and consider follow-up with psychiatry as well. Cannot rule out anxiety or stress reaction as possible etiology of her symptoms however patient does not believe this to be the case and do es not feel like she is stressed.] Disposition: [Discharged home in stable condition] Impression: [Dysarthria etiology uncertain Dysphasia-etiology uncertain Right hand weakness-etiology uncertain] This note was generated with Kalik[employer] software. It may contain incorrect words, spelling, and punctuation that were not noted in review of the chart prior to signing ED Disposition - Plan for ED Patient: Chief Complaint: Weakness Instructions: ED Weakness [facility]O Referrals: Gerald Gilmore MD [STAFF PHYSICIAN] - 3-5 Days Macy Akins NP-C [Primary Care Provider] - What to do if you have P roblems For any increased pain, shortness of breath, bleeding, nausea or vomiting, chest pain, or any unexpected problems, contact your Primary Care Provider. Call [facility] ([phone]) or re port to the closest Emergency Room. Call 911 if necessary. 02/11/18 1700 <Electronically signed by Naomi Durbin DO> Date Naomi Durbin DO Cosigner Signature (If Indicated): Date CC: Macy Akins NP 11-Feb-2018 Discharge Instruction Result: Comments: See Note; NOTES: [facility] Medical Records Department [address] [place] [address] Discharge Instruction 02/11/181652 MR#: [id number] Acct: [id number] Name: Christine MORIN Rep #: [id number] : 1990 27 From: Naomi Durbin DO PCP: Macy Akins NP Status: DEP ER ED Disposition - Plan for ED Patient: Chief Complaint: Weakness Instructions: ED Weakness UKO Refe rrals: Macy Akins NP-C [Primary Care Provider] - Gerald Gilmore MD [STAFF PHYSICIAN] - 3-5 Days What to do if you have Problems For any increased pain, shortness of breath, bleeding, nausea or vo miting, chest pain, or any unexpected problems, contact your Primary Care Provider. Call [facility] ([phone]) or report to the closest Emergency Room. Call 911 if necessary. 02/11/18 1655 & amp;#60;Electronically signed by Remus Ungur DO> Date Remus Ungur DO Cosigner Signature (If Indicated): Date CC: Macy Akins NP 11-Feb-2018 Spine Cervical (Routine) Result: Comments: See Note; NOTES: [facility] Imaging Services [address] [place] [address] Spine Cervical (Routine) MR#: [id number] Acct: [id number] Name: DOUG MORIN Rep #: [id number] : 1990 F 27 From: Tessie Peacock MD PCP: Macy Akins NP Status: REG ER Study: Spine Cervical (Routine) Date of Exam: 02/11/18 Exam# [id number] Ordering Dr: Ashly Morgan MD UDY: MRI CERVICAL SPINE WITHOUT CONTRAST REASON FOR EXAM: Female, 27 years old. Slurred speech, dysphagia, night sweats. Hand weakness. TECHNIQUE: Standardized fat and water weighted pulse sequences w ere obtained in the sagittal and axial planes. COMPARISON: None FINDINGS: Normal foramen magnum and brainstem-cervical cord junction. Normal craniovertebral junctio n. Normal anterior atlantoaxial articulation. Normal odontoid process. Normal cervical lordosis. Normal vertebral bodies and posterior osseous elements. C2- 3: Normal endplates. Normal disc height, sig nal and morphology. Normal central canal and intervertebral neural foramina. C3-4: Normal endplates. Normal disc height, signal and morphology. Normal central canal and intervertebral neural foramina. C4-5: Normal endplates. Normal disc height, signal and morphology. Normal central canal and intervertebral neural foramina. C5-6: Normal endplates. Normal disc height, signal and morphology. Normal ce ntral canal and intervertebral neural foramina. C6-7: Normal endplates. Normal disc height, signal and morphology. Normal central canal and intervertebral neural foramina. C7-T1: Normal endplates. Nor mal disc height, signal and morphology. Normal central canal and intervertebral neural foramina. Normal cervical cord. Normal visualized soft tissue structures. O RDER #: [id number] MRI/Spine Cervical (Routine) IMPRESSION: Normal unenhanced MR examination of the cervical spine. Electronically Signed: Tessie Peacock MD at 16:08 EDT Tel , S ervice support , CC: Macy Akins NP; Elio Morgan MD Canine Service Instructor Trainer: Signed 11-Feb-2018 Brain W/WO Contrast Result: Comments: See Note; NOTES: [facility] Imaging Services [facility] [place] [address] Brain W/WO Contrast MR#: [id number] Acct: [id number] Name: DOUG MORIN Rep #: [id number] : 1990 F 27 From: Tessie Peacock MD PCP: Macy Akins NP Status: [facility] Study: Brain W/WO Contrast Date of Exam: 02/11/18 Exam# [id number] Ordering Dr: Naomi Durbin DO STUDY: MRI BRAIN WITH AND WITHOUT CONTRAST REASON FOR EXAM: Female, 27 years old. Slurred speech, migraines, weakness. TECHNIQUE: Standardized multiplanar fat and water weighted pulse sequences were obtained. 6 ml of Gadav ist contrast material was administered intravenously for the contrast portion of the examination. COMPARISON: None. FINDINGS: There is no intracranial mass, mass e ffect or midline shift. There is no hemorrhage, infarct, or acute ischemia. Normal size of the ventricles and extra-axial spaces for the patient's age. Normal white matter tracts of the supratentorial brain. Normal bilateral basal ganglia. Normal thalami. There is no extra-axial fluid accumulation. Normal flow voids within the major intracranial circulation suggesting patency by spin echo criteria. Normal venous enhancement. There is no enhancing intra-axial or extra-axial abnormality. Normal sella turcica, pituitary gland, infundibular stalk, optic chiasm and hypothalamus. Normal tectal plate a nd pineal gland. Normal midbrain, irma and medulla. Normal cerebellum. Normal basal cisterns. Normal bilateral temporal bones. Normal bilateral internal auditory canals. No demonstrated orbital abnorm ality, within the constraints of a routine brain study. Normal visualized paranasal sinuses. Normal calvarium and skull base. Normal visualized soft tissue structures. Normal visualized upper cervical s pine. MRI/Brain W/WO Contrast IMPRESSION: Normal unenhanced and enhanced MRI of the brain. Electronically Signed: Tessie Peacock MD a t 16:40 EDT Tel , Service support , CC: Macy Akins NP; Naomi Durbin DO Canine Service Instructor Trainer: Signed 07-Jan-2018 Discharge Instruction Result: Comments: See Note; NOTES: [facility] Medical Records Department [address] [place] [address] Discharge Instruction 01/07/18 0641 MR#: [id number] Acct: [id number] Name: Christine MORIN Rep #: [id number] : 1990 27 From: Naomi Durbin DO PCP: Macy Akins NP Status: REG ER ED Disposition - Plan for ED Patient: Chief Complaint: Seizure Instructions: ED Seizure Recurrent Referrals: Macy Akins [Primary Care Provider] - Additional Instructions: Call Dr. Gilmore to discuss possible medication changes What to do if you have Problems For any increased pain, shortness o f breath, bleeding, nausea or vomiting, chest pain, or any unexpected problems, contact your Primary Care Provider. Call [facility] ([phone]) or report to the closest Emergency Room. Call 911 if necessary. 01/07/18 0642 <Electronically signed by Naomi Durbin DO> Date Naomi Durbin DO Cosigner Signature (If Indicated): Date CC: Macy Akins NP 07-Jan-2018 Emergency Department Summary Result: Comments: See Note; NOTES: [facility] Medical Records Department [address] [place] [address] Emergency Department Summary 01/07/18 0636 MR#: [id number] Acct: [id number] Name: DOUG MORIN Rep #: [id number] : 1990 27 From: Naomi Durbin DO PCP: Macy Akins NP Status: REG ER - ER Visit Summary Date of Service: 01/07/18 Chief Complaint: [Seizure] History of Present Illness: The patient is a 27 F [presents the emergency department with a seizure that occurred this morning. Patient apparently had gotten up to get ready for work and took her child into her parents r oom. Patient then went to the kitchen and patient's mother heard a loud thud. Patient was found on the floor having whole body tonic-clonic like seizure. Patient's mother states the seizure lasted about a minute and then patient was postictal. Patient does have a history of seizures and her last seizure was November 03. Mother states that patient was given some traumatic news yesterday that her child had A sperger syndrome. Patient had her seizure medication adjusted recently by Dr. Gerald Gilmore. Patient's been compliant with her medications. She denies recent illness. Patient denies any complaints oth er than a headache currently.] Patient states that she initially felt like she was having some tunnel vision this morning when she woke up and took a Lorazepam trying to stave off a possible seizure. P hysical Examination: [HEENT-PERRLA, EOMI. Cranial nerves II through XII grossly intact. TMs clear. Mucous membranes moist. No adenopathy. No external evidence of trauma to her head. Patient does have bi te wounds noted to her tongue. Cardiovascular-regular rate and rhythm without murmur or ectopy Lungs-clear to auscultation, chest wall stable without crepitus or subcu emphysema Abdomen-normoactive b owel sounds, soft, nontender, no rebound or rigidity, no peritoneal signs. Neuro rddx-pywliy-xnhe and heel peters testing within normal limits, negative Romberg, negative pronator drift, fundi benign Ex tremities-intact 4, normal range of motion, normal pulses, atraumatic] Test Results: [CT scan of the brain without contrast showed nothing acute. CBC with it was normal. Chemistries were normal. Urinal ysis was normal. HCG was negative.] Emergency Department Course and Treatment: [Patient was observed in the department she had no further seizure activity. I attempted to contact Dr. Gerald Gilmore un successfully and the patient no longer wants to wait. Patient will call the office today to discuss possible medication changes with Dr. Gilmore.] Treatment Plan: [Follow-up with Dr. Gerald Gilmore] Disposition: [Discharged home in stable condition] Impression: [Recurrent seizure] This note was generated with [employer] dictation software. It may contain incorrect words, spelling, and punctuation that were not noted in review of the chart prior to signing ED Disposition - Plan for ED Patient: Chief Complaint: Seizure Referrals: Macy Akins [Primary Care Provider] - What to do if you have Pr oblems For any increased pain, shortness of breath, bleeding, nausea or vomiting, chest pain, or any unexpected problems, contact your Primary Care Provider. Call [facility] ([phone]) or rep ort to the closest Emergency Room. Call 911 if necessary. 01/07/18 0640 <Electronically signed by Naomi Durbin DO> Date Naomi Durbin DO Cosigner Signature (If Indicated): Date CC: Macy Akins NP 07-Jan-2018 Brain/Head without Contrast Result: Comments: See Note; NOTES: [facility] Imaging Services [address] [place] [address] Brain/Head without Contrast MR#: [id number] Acct: [id number] Name: DOUG MORIN Rep #: [id number] : 1990 F 27 From: Reid Ortega MD PCP: Macy Akins NP Status: REG ER Study: Brain/Head without Contrast Date of Exam: 01/07/18 Exam# [id number] Ordering Dr: Naomi Durbin DO STUDY: CT BRAIN WITHOUT CONTRAST REASON FOR EXAM: Female, 27 years old. Seizure RADIATION DOSAGE (If Supplied By Facility): CTDIvol = ( 44.99 ) mGy, DLP = ( 779.24 ) mGycm TECHNIQUE: Transaxial CT imaging of the brain was performed without administration of intravenous contrast material. Individualized dose optimization techniques were used for this CT. COMPARISON: None. ____ FINDINGS: Normal soft tissue structures. Normal calvarium. Normal size ventricles and extra-axial spaces for the patient's age. Normal white matter tracts of the cerebral hemispheres. Normal basa l ganglia and thalami. Normal brainstem. Normal cerebellum. There is no intracranial hemorrhage. There are no findings of an acute ischemic infarction. Normal visualized paranasal sinuses. CT/Brain/Head without Contrast IMPRESSION: Normal unenhanced CT scan of the brain. Electronically Signed: Reid Ortega, at 5:31 EDT Tel , Service support , CC: Macy Akins NP; Naomi Durbin DO Canine Service Instructor Trainer: Signed 23-Dec-2017 Emergency Department Summary Result: Comments: See Note; NOTES: [facility] Medical Records Department [address] [place] [address] Emergency Department Summary 12/23/17 1600 MR#: [id number] Acct: [id number] Name: DOUG MORIN Rep #: [id number] : 1990 27 From: Brain Del Castillo MD PCP: Macy Akins NP Status: REG ER - ER Visit Summary Date of Service: 12/23/17 Chief Complaint: Pelvic right patient seen by tor saldana at [facility] and sent to ER for further evaluation. Note that accompany person suggested CT of the brain/head with IV contrast because of visual changes rule out aneurysm and CT of the chest with IV contrast to rule out PE/dissection. History of Present Illness: The patient is a 27 F who presents with pleuritic chest pain. She had viral illness this past weekend. 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 She does complain a unilateral headache with binocular blurred vision. She denies any double vision or loss of vision. Denies ringing in her ears. She denies nasal congestion, postnasal drip or sore throat. She denies shortness of breath. She does complain of pain with breathing. She denies cough. Denies leg pain, swelling discolorat ion. She has no history of PE or DVT nor she have any risk factors. She has similar presentation several years ago was diagnosed with pleurisy. She reported GI symptoms past weekend. She presently has n o GI symptoms. She has no symptoms. Please read written note for complete detail Physical Examination: Vital signs are noted and blood pressure slightly elevated 126/73. Head is atraumatic normoceph alic. Pupils are equal round reactive. Extraocular muscles are intact. TMs are pearly white with landmarks noted. Nares patent with no drainage. Posterior pharynx without erythema or exudate. Uvula is m idline. There is no dysphonia or dysphasia. Trachea is midline. There is no stridor with auscultation of the neck. Heart is regular without murmur, gallop or rub. S1 and S2 are normal. Lungs are clear t o auscultation with good movement of air bilaterally. Abdomen soft nontender with normal bowel sounds. There is no asymmetry, swelling, discoloration, leg vein distention, palpable cords or tenderness a long the distribution of the deep venous system. Patient is alert and oriented 3. Motor is 5 over 5. Sensory is intact. DTRs are symmetric with no clonus or Babinski sign. Cranial 2 through 12 are intac t. Cerebellar testing is normal. Gait was observed and normal. Test Results: None were obtained Emergency Department Course and Treatment: Since patient is PERC negative CT of the chest is not indicat ed. Patient does not have a thunderclap headache no nuchal rigidity or photophobia with a normal neuro exam in my professional opinion CT of the head is not indicated. Because she has been lightheaded w ith ocular symptoms will treat with Benadryl, Toradol and Reglan. She is now smiling which she was not. Her chest pain improved slightly. Treatment Plan: NSAIDs since no contraindication Disposition: Discharged to home with mother Impression: 1. Pleurisy secondary to recent viral illness 2. Unilateral headache suspect migraine variant This note was generated with [employer] dictation software. It ma y contain incorrect words, spelling, and punctuation that were not noted in review of the chart prior to signing ED Disposition - Plan for ED Patient: Disposition: Home or Assisted Living Chief Compl aint: Chest Pain Instructions: ED Chest Pain Pleurisy Prescriptions: Naproxen [Naprosyn] 500 mg PO BID #10 tab Referrals: Macy Aknis [Primary Care Provider] - 1 Week if not improving What to do if yo u have Problems For any increased pain, shortness of breath, bleeding, nausea or vomiting, chest pain, or any unexpected problems, contact your Primary Care Provider. Call [facility] ) or report to the closest Emergency Room. Call 911 if necessary. 12/23/17 0356 <Electronically signed by Brain Del Castillo MD> Date Brain Del Castillo MD Cosigner Signature (If Indicated): Date CC: Macy Akins NP 11-Nov-2017 Emergency Department Summary Result: Comments: See Note; NOTES: [facility] Medical Records Department [address] [place] [address] Emergency Department Summary 11/10/17 0905 MR#: [id number] Acct: [id number] Name: DOUG MORIN Rep #: [id number] : 1990 27 From: Efrain Olguin MD PCP: Lina Candelaria DO Status: DEP ER - ER Visit Summary Date of Service: 11/10/17 Chief Complaint: Headache History of P resent Illness: The patient is a 27 F who sees Macy sees ramírez Hua, her neurologist at [facility] for seizures. She reports that she has a seizure disorder and last had a seizure November 03. She fel l off the couch and hit her head. States that since this time she has had a headache. Is 9 out of 10 in severity and is been that way ever since the seizure. Is an aching pain in the occipital region. S he reports that she is having difficulty remembering things and has been forgetting the day of the week for example. States that she was sent here today from work because she was acting different than ty segura and was not doing her typical routine. Patient reports feeling nauseated and that her brain feels heavy and jiggly. Patient does report that she has been nauseated, but has not v omited. She denies any fever, chills, sore throat, cough. No chest pain or shortness of breath. She has had no abdominal pain, vomiting, diarrhea. No dysuria or frequency. Her last menstrual period was 1 week ago. She denies any rash, numbness, or weakness. Physical Examination: Vitals: Stable. Afebrile. General: Well-nourished and well-developed. Head: Normocephalic atraumatic. Neck: Supple, no lym phadenopathy. No JVD. Nontender. Cardiovascular: Regular rate and rhythm. No murmurs. Respiratory: No respiratory distress. Clear to auscultation bilaterally. Abdominal: Soft, nontender, nondistended, n ormal bowel sounds. No guarding, rebound, or peritoneal signs. Back: Nontender. Extremities: Nontender, no edema. Skin: Normal color, no rash. Neurologic: Alert and oriented 3. Cranial nerves II through XII are intact. Normal strength and sensation. Psych: Normal affect. Test Results: The test results from November 03 were reviewed. Her CBC was normal. Her Chem-7 was remarkable for a chloride of 111. Her phosphorus and magnesium were normal. Her Lamictal level has returned and was 4.5. CT brain today was normal. Emergency Department Course and Treatment: Patient had an IV placed. She was given liter kingsley rosario normal saline. She was given Toradol, Benadryl, and Reglan IV. Treatment Plan: Patient will be discharged instructions to follow-up with her primary care physician and/or her neurologist in 1 week for another exam. Return to the emergency department for any worsening symptoms. Disposition: To home in improved and stable condition. Impression: 1. Concussion. 2. Breakthrough seizure November 03, 2017. This note was generated with [employer] software. It may contain incorrect words, spelling, and punctuation that were not noted in review of the chart prior to signing ED Disposition - Plan for ED Patient: Disposition: Home or Assisted Living Chief Complaint: Dizziness Instructions: ED Concussion Referrals: Lina Candelaria DO [Primary Care Provider] - 1 Week Gerald Gilmore MD [STAFF PH YSICIAN] - 1 Week What to do if you have Problems For any increased pain, shortness of breath, bleeding, nausea or vomiting, chest pain, or any unexpected problems, contact your Primary Care Provide r. Call [facility] ([phone]) or report to the closest Emergency Room. Call 911 if necessary. 11/11/17 1117 <Electronically signed by Efrain Olguin MD> Date ____ Efrain Olguin MD Cosigner Signature (If Indicated): Date CC: Lina Candelaria DO 10-Nov-2017 Brain/Head without Contrast Result: Comments: See Note; NOTES: [facility] Imaging Services [address] [place], [place] [address] [place] [address] Brain/Head without Contrast MR#: [id number] Acct: [id number] Name: DOUG MORIN Rep #: [id number] : 1990 F 27 From: Mitchel Conrad MD PCP: Lina Candelaria DO Status: REG ER Study: Brain/Head without Contrast Date of Exam: 11/10/17 Exam# [id number] Ordering Dr: Efrain Olguin STUDY: CT BRAIN WITHOUT CONTRAST REASON FOR EXAM: Female, 27 years old. Head injury due to seizures. History of epilepsy. RADIATION DOSAGE (If Supplied By Facility): CTDIvol = ( 44.99 ) mGy, DLP = ( 745.49 ) mGycm TECHNIQUE: Transaxial CT imaging of the brain was performed without administration of intravenous contrast material. Individualized dose optimization techniques were used for this CT . COMPARISON: Comparison is made with prior study dated November 11, 2015. FINDINGS: Normal soft tissue structures. Normal calvarium. Normal size ventricles and extra- axial spaces for the patient's age. Normal white matter tracts of the cerebral hemispheres. Normal basal ganglia and thalami. Normal brainstem. Normal cerebellum. There is no intracranial hemorrhage. T here are no findings of an acute ischemic infarction. Normal visualized paranasal sinuses. CT/Brain/Head without Contrast IMPRESSION: Normal une nhanced CT scan of the brain. Electronically Signed: Mitchel Conrad MD at 9:17 EDT Tel [phone], Service support , CC: Lina Candelaria DO; Efrain Olguin MD Canine Service Instructor Trainer: Signed 03-Nov-2017 Emergency Department Summary Result: Comments: See Note; NOTES: [facility] Medical Records Department [address] [place] [address] Emergency Department Summary 11/03/17 1449 MR#: [id number] Acct: [id number] Name: DOUG MORIN Rep #: [id number] : 1990 27 From: Hill Banks MD PCP: Lina Candelaria DO Status: DEP ER - ER Visit Summary Date of Service: 11/03/17 Chief Complaint: Seizure History of Pr esent Illness: The patient is a 27 F presenting for evaluation secondary to a seizure. Patient has a underlying history of seizure disorder and is on Zonegran and Lamictal. She has had a significant angel unt of increased activity recently and actually traveled to [place] to [place]. She has been relatively fatigued recently, but states that she has not been missing any doses of her medications. Michelle mayers apparently had a tonic-clonic seizure today that lasted about 2 minutes was associated with tongue biting and a postictal episode. Patient typically has seizures about 4 times a year, last one was in August. No recent changes in medications. She has not recently followed up with her neurologist. She denies any recent illnesses. Review of systems otherwise negative. Physical Examination: Vital signs are within normal limits, patient is afebrile. General: Patient is well-nourished well-developed and in no acute distress. Head: Normocephalic, atraumatic Eyes: Pupils equal round and reactive bilatera lly, extra occular motion intact bialterally ENT: Moist mucous membranes, evidence of superficial tongue laceration into the left lateral tongue Neck: Supple, no lymphadenopathy, no JVD, no meningismus CVS: Heart regular rate and rhythm, no murmurs, rubs or gallops, radial pulses 2+ bilaterally Resp: Respirations nondistressed, lung sounds clear bilaterally Abdomen: Soft, nontender, nondistended, no p alpable masses, normal bowel sounds Back: Nontender Extremities: Nontender, atraumatic, active full range of motion, no peripheral edema Skin: warm, no rashes, no petechia Neuro: Alert and oriented x 4, CN 2-12 intact, no lateralizing neurological defecits Psyc: Normal affect Test Results: CBC unremarkable, chemistry unremarkable, magnesium and phosphorus unremarkable Lamictal level is pending Emerg ency Department Course and Treatment: Patient presented for evaluation secondary to a seizure, patient's laboratory workup was found to be unremarkable. She had full return to baseline while in the [facility] department. Her mother was concerned because she was having some hand wringing. She was given Ativan and this seemed to improve. I had a discussion with the covering neurologist for the patient's neurologist at the [facility], they recommended outpatient follow-up. Lamictal level is still pending. At this time the patient is safe for discharge to follow-up with neurology as an outpatient. Disposition: Discharge Impression: 1. Breakthrough seizure This note was generated with [employer] dictation software. It may contain incorrect words, spelling, and punctuation that were not noted in r eview of the chart prior to signing ED Disposition - Plan for ED Patient: Disposition: Home or Assisted Living Chief Complaint: Seizure Diagnosis: Breakthrough seizure Instructions: ED Seizure Recur rent Referrals: Ashly Morgan MD [STAFF PHYSICIAN] - As Needed Additional Instructions: Followup with Dr. Melita GREEN What to do if you have Problems For any increased pain, shortness of breath, bleeding, nausea or vomiting, chest pain, or any unexpected problems, contact your Primary Care Provider. Call [facility] ([phone]) or report to the closest Emergency Room. Call 911 if necessary. 11/03/17 1640 <Electronically signed by Hill Banks MD> Date Hill Banks MD Cosigner Signature (If Indicated): Date CC: Lina Candelaria DO 20-May-2016 Chest without Contrast Result: Comments: See Note; NOTES: [facility] Imaging Services [address] [place] [address] Verdana 4d Chest without Contrast MR#: [id number] Acct: [id number] Name: DOUG MORIN Rep #: [id number] : 1990 F 25 From: Mitchel Conrad MD PCP: iLna Candelaria DO Status: REG CLI Study: Chest without Contrast Date of Exam: 05/20/16 Exam# [id number] Ordering Dr: Indra Weinstein DO STUDY: CT CHEST WITHOUT CONTRAST REASON FOR EXAM: Female, 25 years old. 2 week history of cough and shortness of breath. RADIATION DOSAGE (If Supplied By Facility): CTDIvol = ( 7.97 ) mGy, DLP = ( 26 1.04 ) mGycm TECHNIQUE: Transaxial imaging was performed without the administration of intravenous contrast material. Multiplanar coronal and sagittal images were reformatted. Individualized dose opti mization techniques were used for this CT. COMPARISON: Comparison is made with prior study dated February 21, 2015. FINDINGS: The lungs are normal. There is no demo nstrated pleural abnormality. Normal heart and pericardium. Normal mediastinum. Normal hilar regions. Normal unenhanced pulmonary arteries. Normal aorta arch and descending thoracic aorta. Normal oss eous structures. There is no demonstrated abnormality of the visualized upper abdomen. CT/Chest without Contrast IMPRESSION: Normal unenhanced C T Chest examination. Electronically Signed: Mitchel Conrad MD at 15:26 EST Tel [phone], Service support [phone], CC: Indra Weinstein D.O.; Lina Candelaria DO Canine Service Instructor Trainer: Signed 18-May-2016 Echocardiogram Complete Result: Comments: See Note; NOTES: [facility] Cardiovascular Services [address] [place] [address] Echo Complete 05/18/16 1400 MR#: [id number] Acct: [id number] Name: DOUG MORIN Rep #: [id number] : 1990 25 From: Compa Healy MD Attending Dr: Nisha Brandon RECRUIT INSTRUCTOR Status: REG CLI Ordering Dr: Nisha Brandon RECRUIT INSTRUCTOR-C Date: 05/18/16 Location: CVS Sex: F C Admitted: Reason Fo r Study: SOB Procedure This was a 2D Doppler, Color Flow transthoracic echocardiogram. Exam performed in department. Left Ventricle Normal LV size. Left ventricular systolic function is normal. The es timated ejection fraction is 60 %. No regional wall motion abnormalities noted. Right Ventricle Normal RV size. Normal systolic function. Atria Normal left atrium. Normal right atrium. Mitral Valve N ormal mitral valve. Trivial eccentric mitral valve insufficiency. Tricuspid Valve Normal tricuspid valve. Aortic Valve Normal aortic valve. Trisinus/trileaflet aortic valve. Pulmonic Valve Normal pulm onic valve. Great Vessels Normal aortic root. The pulmonary artery is normal size. Normal inferior vena cava. Pericardium/Pleural No pericardial effusion. MMode/2D Measurements & Calculations LVIDd: 4.3 cm IVSd: 0.85 cm Ao root diam: 2.2 cm LVIDs: 2.6 cm LVPWd: 0.90 cm LA dimension: 3.6 cm RVDd: 2.9 cm FS: 40.0 % __ LAV(MOD-bp): 49.9 ml LA A4 area: 15.3 cm2 RA A4 area: 10.5 cm2 LAV(MOD-bp) Indexed: 32.1 ml/m2 LAV(MOD-sp2): 63.3 ml LAV(MOD-sp4): 37.6 ml Doppler Measurements & Calculations MV E max jacklyn: 1 00.0 cm/sec Lat Peak E' Jacklyn: 22.7 cm/sec Med Peak E' Jacklyn: 15.1 cm/sec MV A max jacklyn: 56.2 cm/sec E/E' lat: 4.4 E/E' med: 6.6 MV E/A: 1.8 Ao V2 max: 141.7 cm/sec LV V1 max: 113.9 cm/sec PA V2 max: 128.1 cm/sec Ao max P.0 mmHg LV V1 max P.2 mmHg Interpretation Summary Normal LV size. Left ventricular systolic funct ion is normal. The estimated ejection fraction is 60 %. Normal mitral valve. Structurally normal valves. _ Ordering Physician: Nisha Brandon Performed By: Zenia Miller RDCS 05/18/16 1503 Date Compa Healy MD CC: Nisha Brandon; Lina Candelaria DO Date Dictated: 05/18/16 1400 Date Transcribed: 05/18/16 1503 Canine Service Instructor Trainer: Signed 15-May-2016 12 Lead Electrocardiogram Result: Comments: See Note; NOTES: [facility] Cardiovascular Services [address] [place] [address] 12 Lead EKG 05/13/16 1751 MR#: [id number] Acct: [id number] Name: DOUG MORIN Rep # : [id number] : 1990 25 From: Mark Quijano MD Attending Dr: Status: DEP Ordering Dr: Hill Banks MD Date: 05/13/16 Location: ED Sex: F C Admitted: Test Reason : CP Blood Pressure : / mmHG Vent. Rate : 081 BPM Atrial Rate : 081 BPM P-R Int : 188 ms QRS Dur : 088 ms QT Int : 374 ms P-R-T Axes : 069 065 054 degrees QTc Int : 434 ms Normal sinus rhythm Normal ECG Confirmed by MARK NICHOLE ([id number]), book editor FELIX CALLE ([id number]) on 05/15/2016 3:14:49 PM Referred By: LOIUSE Confirmed By:MARK QUIJANO 05/15/16 1514 Date Mark Quijano MD CC: Lina Candelaria DO Date Dictated: 05/13/161750 Date Transcribed: 05/13/161750 Canine Service Instructor Trainer: Signed 14-May-2016 Discharge Instruction Result: Comments: See Note; NOTES: [facility] Medical Records Department [address] [place] [address] Discharge Instruction 05/13/162043 MR#: [id number] Acct: [id number] Name: Christine MORIN Rep #: [id number] : 1990 25 From: Hill Banks MD PCP: Lina Candelaria DO Status: DEP ER ED Disposition - Plan for ED Patient: Disposition: Home or Assisted Living Chief Complaint: C hest Pain Instructions: ED Chest Pain Noncardiac Ch Referrals: Lina Candelaria DO [Primary Care Provider] - Keep Hellen appointment What to do if you have Problems For any increased pain, shortness of breath, bleeding, nausea or vomiting, chest pain, or any unexpected problems, contact your Primary Care Provider. Call [facility] ([phone]) or report to the closest Emergency Room. Call 911 if necessary. 05/14/16 0046 <Electronically signed by Hill Banks MD> Date Hill Banks MD Cosigner Signature (If Indicated): Date CC: Lina Candelaria DO 14-May-2016 Emergency Department Summary Result: Comments: See Note; NOTES: [facility] Medical Records Department [address] [place] [address] Emergency Department Summary MR#: [id number] Acct: [id number] Name: DOUG MORIN Rep #: [id number] : 1990 25 From: Hill Banks MD PCP: Lina Candelaria DO Status: DEP ER DATE OF SERVICE: 05/13/2016 CHIEF COMPLAINT: Chest pain. HISTORY OF PRESENT ILLNESS: A 25-year-old female presenting secondary to chest pain, states this has been going on for 10-11 days, continuous, it is aching, it is left-sided, goes through to her back, seems to be worse with exertion and breath ing. She has had prior similar episodes in the past. She actually had a significant workup in the hospital in 2014, including echocardiogram, CTA, all of which were found to be negative. The patient minesh t and saw a hairspring setter for this. They felt that it potentially was more cardiac in nature. She went and saw her PCP who ordered another echo and stress test. The patient also states that she had mild fever and nausea associated with this, lately says that her temperature was 38.3 and she had a cough. The patient denies any cardiovascular or PE risk factors. She has a history of epilepsy and pleuris y. PHYSICAL EXAMINATION: VITAL SIGNS: Within normal limits. GENERAL: Well-nourished female. HEENT: Moist mucous membranes. No JVD. HEART: Regular with normal S1 and S2. No murmurs, rubs or gallops. MITZI GS: Clear. Chest nontender, no vesicular rash. ABDOMEN: Soft, nontender. EXTREMITIES: Peripheral pulses 2+ x4. Remainder of physical otherwise unremarkable. EMERGENCY DEPARTMENT COURSE AND DECISION WHIT ING: I reviewed the patient's records. She had a completely negative workup including CTA and cardiac echo in 2014. She has virtually no cardiac or PE risk factors. EKG was obtained, which showed normal sinus rate of 81 with no evidence of ischemic or arrhythmic changes. Chest x- ray was normal. At this point, I do not see any utility in keeping the patient in the hospital as she already has an adequat e outpatient workup for this. She was given Zofran in the ER, had some symptomatic improvement. She will be discharged with a course of the same. DISPOSITION: Discharge. DIAGNOSIS: Chest pain. Efrain Banks M.D. T: NTS JOB: [id number] 05/14/16 0046 <Electronically signed by Hill Banks MD> Date Hill Banks MD Cosigner Sign ature (If Indicated): Date CC: Lina Candelaria DO Date Dictated: 05/14/1611 Date Transcribed: 05/14/1611 Canine Service Instructor Trainer: Signed 13-May-2016 Chest PA and Lateral Result: Comments: See Note; NOTES: [facility] Imaging Services [address] [place] [address] Verdana 4d Chest PA and Lateral MR#: [id number] Acct: [id number] Name: DOUG MORIN Rep #: [id number] : 1990 F 25 From: Olvin Rosenthal PCP: Lina Candelaria DO Status: REG ER Study: Chest PA and Lateral Date of Exam: 05/13/16 Exam# [id number] Ordering Dr: Hill Banks MD STUDY: X-RAY CHEST REASON FOR EXAM: Female, 25 years old. Chest pain, dyspnea TECHNIQUE: Frontal and lateral views of the chest. COMPARISON: 02/09/2016. FINDINGS: The lungs ar e clear and expanded. There is no demonstrated pleural abnormality. Normal size heart. Normal mediastinum and shima. Normal visualized pulmonary arteries. Normal visualized aortic arch and descending th oracic aorta. Normal visualized thoracic spine. Normal visualized ribs, clavicles, and shoulders. There is no demonstrated abnormality of the visualized soft tissue structures of the upper abdomen. __ RAD/Chest PA and Lateral IMPRESSION: No acute cardiopulmonary disease. Electronically Signed: Olvin Rosenthal DO at 19:07 EST Tel , Service support [phone], CC: Lina Candelaria DO; Hill Banks Canine Service Instructor Trainer: Signed 11-Feb-2016 12 Lead Electrocardiogram Result: Comments: See Note; NOTES: [facility] Cardiovascular Services [address] [place] [address] 12 Lead EKG 02/09/16 1045 MR#: [id number] Acct: [id number] Name: DOUG MORIN Rep #: [id number] : 1990 25 From: Compa Healy MD Attending Dr: Status: DEP ER Ordering Dr: Mark Lopez DO Date: 02/09/16 Location: ED Sex: F C Admitted: Test Reason : CHEST PAIN Blood Pressur e : / mmHG Vent. Rate : 097 BPM Atrial Rate : 097 BPM P-R Int : 170 ms QRS Dur : 078 ms QT Int : 348 ms P-R-T Axes : 075 075 061 degrees QTc Int : 441 ms Normal sinus rhythm Normal ECG Confirmed by COMPA HEALY MD ([id number]), book editor FELIX CALLE ([id number]) on 02/11/2016 2:23:30 PM Referred By: Confirmed By:COMPA HEALY MD 02/11/16 1423 Date Compa Healy MD CC: Lina Candelaria DO Date Dictated: 02/09/161044 Date Transcribed: 02/09/161044 Canine Service Instructor Trainer: Signed 09-Feb-2016 Emergency Department Summary Result: Comments: See Note; NOTES: [facility] Medical Records Department [address] [place] [address] Emergency Department Summary MR#: [id number] Acct: [id number] Name: STEVEN MORIN Rep #: [id number] : 1990 25 From: Mark Lopez DO PCP: Lina Candelaria DO Status: [facility] ER DATE OF SERVICE: 02/09/2016 CHIEF COMPLAINT: Chest pain. HISTORY OF PRESENT ILLNESS: This is a [age]-year-old female who notes that since yesterday she has had intermittent episodes where she gets a squeezing sensation in her chest and she feels like she is going to ____ pass out and then it starts t o relax. She has had chest pains in the past. She has had ER visits and follow up with no diagnosis. She denies any PE risk factors. No significant family history. PHYSICAL EXAMINATION: VITAL SIGNS: Af ebrile. Vital signs are stable. HEART: Regular without murmur. LUNGS: Lung sounds are clear and equal. Peripheral pulses are 2+ bilaterally symmetric in the upper and the lower extremities. EMERGENCY D EPARTMENT COURSE: Chest x-ray was negative. EKG was negative. The patient has already had an evaluation for pulmonary embolisms, cardiac enzymes and her blood work has been good other than a hemoglobin of 11.4. My thought is that this could very well be esophageal spasms, maybe she is having otherwise, silent reflux. I have placed her on Pepcid, have her follow up after 2 weeks to see if it is making a difference. CLINICAL IMPRESSION: 1. Chest pain. 2. Concern for esophageal spasms. Mark Lopez DO T: NTS JOB: [id number] 02/09/16 1542 <Electronically signed by Mark Lopez DO> Date Mark Lopez DO Cosigner Signature (If Indicated): Date CC: Lina Candelaria DO Date Dict ated: 02/09/16 121 Date Transcribed: 02/09/161210 Canine Service Instructor Trainer: Signed 09-Feb-2016 Discharge Instruction Result: Comments: See Note; NOTES: [facility] Medical Records Department [address] [place] [address] Discharge Instruction 02/09/16 1208 MR#: [id number] Acct: [id number] Name: DOUG MORIN Rep #: [id number] : 1990 25 From: Mark Lopez DO PCP: Lina Candelaria DO Status: REG ER ED Disposition - Plan for ED Patient: Disposition: Home or Assisted Living Chief Complaint: Chest Pain Instructions: ED Esophageal Spasm Prescriptions: Famotidine [Pepcid] 20 mg PO BID #28 tablet Referrals: Lina Candelaria DO [Primary Care Provider] - 1-2 Weeks What to do if you have Prob lems For any increased pain, shortness of breath, bleeding, nausea or vomiting, chest pain, or any unexpected problems, contact your doctor. Call [facility] ([phone]) or report to the [facility] Emergency Room. Call 911 if necessary. 02/09/16 1209 <Electronically signed by Mark Lopez DO> Date Mark Lopez DO Cosigner S ignature (If Indicated): Date CC: Lina Candelaria DO 09-Feb-2016 Chest PA and Lateral Result: Comments: See Note; NOTES: [facility] Imaging Services [address] [place] [address] Verdana 4d Chest PA and Lateral MR#: [id number] Acct: [id number] Name: MASHADOUG Rep # : [id number] : 1990 F 25 From: Virginia Hankins MD PCP: Lina Candelaria DO Status: REG ER Study: Chest PA and Lateral Date of Exam: 02/09/16 Exam# [id number] Ordering Dr: Mark Lopez DO STUD Y: X-RAY CHEST REASON FOR EXAM: Female, 25 years old. Chest pain, shortness of breath TECHNIQUE: PA and lateral views of the chest. COMPARISON: 01/28/2016 FINDINGS : There are superimposed monitor leads. Stable hyperinflation. There is no demonstrated pleural abnormality. Normal size heart. Normal mediastinum and shima. Normal visualized pulmonary arteries. Sarah l visualized aortic arch and descending thoracic aorta. Normal visualized thoracic spine. Normal visualized ribs, clavicles, and shoulders. There is no demonstrated abnormality of the visualized soft tissue structures of the upper abdomen. RAD/Chest PA and Lateral IMPRESSION: Stable hyperinflation. No acute cardiopulmonary disease. No signi ficant interval change. Electronically Signed: Virginia Hankins MD at 12:03 EDT , Service support [phone], CC: Mark Lopez DO; Lina Candelaria DO Canine Service Instructor Trainer: Signed 31-Jan-2016 Emergency Department Summary Result: Comments: See Note; NOTES: [facility] Medical Records Department [address] [place] [address] Emergency Department Summary MR#: [id number] Acct: [id number] Name: MASHARBOERTALEXIS Hannon Rep #: [id number] : 1990 25 From: Hill Tavera MD PCP: Care Physician,No Primary Status: DEP ER DATE OF SERVICE: 01/28/2016 METHOD OF ARRIVAL: By private car. CHIEF COMPLAINT: Chest pain. PRIMARY CARE PHYSICIAN: Serina rivera DON HISTORY: A 25-year-old female, who reports a history of pleurisy and possible myocarditis, this was about a year ago. She also has seizure history. The pat ient comes in with chest pain that started yesterday about 1:00 p.m., it has been constant, described it as sharp, burning pain, intermittent, chest. She also states it is into her back. She states curr ently is a 7. Denies it being worse with exertion, but it is worse with breathing. She states nothing really makes it better. Denies nausea, vomiting, or diaphoresis. She does feel short of breath. No c ough or fever symptoms. No recent URI symptoms. She does state this is similar to her presentation with the pleurisy. REVIEW OF SYSTEMS: Otherwise remarkable for slight headache, otherwise unremarkable . I did look up her reports, the patient did have an echo that showed no pericardial effusion with the echo relatively unremarkable, 60% EF. I look up her discharge summary and there was no discussion a bout her being in myocarditis, her primary discharge diagnosis was pleuritic chest pain. PHYSICAL EXAMINATION: VITAL SIGNS: Stable. She is afebrile. She is not tachycardic. HEENT: Unremarkable. NECK: S upple. LUNGS: Clear. HEART: Regular. I do not appreciate any murmur, rub, or gallop. ABDOMEN: Soft and nontender. NEUROLOGIC: Awake, alert, no focal findings. TESTS: Chest x-ray, 2 view is negative. EK G is sinus at 79, no ischemic pattern, no abnormal findings. This is compared to her EKG in January 2015 that was abnormal. CBC: Her white count is normal, hemoglobin 11.4, and 77% neutrophils. Her sed rate is normal at 16. Chemistry panel is normal. Troponin is negative. D-dimer is negative. EMERGENCY DEPARTMENT COURSE: The patient was given IV fluids. She declined anything for pain. At this time, h er pain has been constant for approximately 18 hours with negative cardiac markers and normal EKG. I do not suspect this to be cardiac. Also, she had a negative D-dimer, I do not believe that she requir es a CTA. She has no history of DVT or PE. At this time, we will treat her as pleurisy, placed her on anti-inflammatories. She is encouraged to follow up with her primary care. CLINICAL IMPRESSION: 1. Atypical chest pain. 2. Pleurisy. DISPOSITION: Home. MD Robert Doll C: Soha Perdomo MD T: NTS JOB: [id number] 01/31/16 1507 <Electronically signed by Hill Tavera MD> Date ____ Hill Tavera MD Cosigner Signature (If Indicated): Date CC: Soha Perdomo MD; No Primary Care Physician Date Dictated: 01/28/16 1205 Date Transcribed: 01/28/161204 Canine Service Instructor Trainer: Signed 12-Nov-2015 Emergency Department Summary Result: Comments: See Note; NOTES: [facility] Medical Records Department [address] [place] [address] Emergency Department Summary MR#: [id number] Acct: [id number] Name: DOUG MORIN Rep #: [id number] : 1990 From: Everardo Espinoza MD PCP: Lina Candelaria DO Status: DEP ER DATE OF SERVICE: 11/11/2015 CHIEF COMPLAINT: Numbness. HISTORY OF PRESENT ILLN ESS: This is a 25-year-old female with a history of epilepsy and migraines, presents with acute onset of numbness in her left lower face only that started 5-1/2 hours prior to arrival while she was a t rest. She states last night she accidentally fell backwards, hitting her head very hard against the wall. She had no loss of consciousness or symptoms other than soreness there, but it does not hurt today and she has no headache. No weakness. No nausea, vomiting, or vision changes. No other neurologic symptoms. No dizziness. She has never had neurologic symptoms like this with her migraines in t he past. She does not recall having any seizure activity recently. She ____ grand mal, but occasionally has tremors and twitches that she has been told may be seizure activity occasionally, that she has p.r.n. Ativan for. She has been compliant with her seizure medication. PHYSICAL EXAMINATION: VITAL SIGNS: Afebrile. Vitals are normal. GENERAL: She is well appearing, in no acute distress. HEEN T: She has subjective decreased sensation in the left lower face only. She has no facial droop. The forehead raises equally. NEUROLOGIC: She has normal peripheral and central neurologic exams otherwis e. NECK: Supple. No tenderness. No lymphadenopathy. LUNGS: Clear. HEART: Regular without murmur or tachycardia. EXTREMITIES: Reflexes and cerebellar exam are normal. EMERGENCY DEPARTMENT COURSE: The patient was amenable to a CT of the head given the symptoms. In addition to empiric treatment for possible atypical migraine symptoms, she was given Reglan 10 mg IV. After that she had no changes. CT scan is negative/normal. Discussed with Dr. Gilmore, he does not think that she needs admitted, emergent EEG or MRI. Suspects concussion related symptoms, with monitoring close outpatient followu p, returning for worsening problems. Discussed with them and they are comfortable with this plan. IMPRESSION: 1. Concussion without loss of consciousness. 2. Paresthesias. DISPOSITION: Home. C ONDITION: Stable. Everardo Jones C: Lina Candelaria DO T: OLIVIER JOB: [id number] 11/12/15 0115 <Electronically signed by Everardo Espinoza MD> Date Everardo Espinoza MD Cosigner Signature (If Indicated): Date CC: Lina Candelaria DO Date Dictated: 11/11/151806 Date Tr anscribed: 11/11/151806 Canine Service Instructor Trainer: Signed 11-Nov-2015 Discharge Instruction Result: Comments: See Note; NOTES: [facility] Medical Records Department [address] [place] [address] Discharge Instruction 11/11/15 1728 MR#: [id number] Acct: [id number] Name: MASHADOUG Rep #: [id number] : 1990 25 From: Everardo Espinoza MD PCP: Lina Candelaria DO Status: REG ER ED Disposition - Plan for ED Patient: Disposition: Home or Assisted Arely ng Chief Complaint: Numb/Ting Instructions: ED Concussion, No Wake-Up, ED Paraesthesias Referrals: Lina Candelaria DO [Primary Care Provider] - 1-2 Days if not improving Additional Instructions: use ibuprofen and/or tylenol as needed for any pain. What to do if you have Problems For any increased pain, shortness of breath, bleeding, nausea or vomiting, chest pain, or any unexpected probl ems, contact your doctor. Call [facility] ([phone]) or report to the closest Emergency Room. Call 911 if necessary. 11/11/15 1730 <Electronically signed by Everardo Espinoza MD&amp ;#62; Date Everardo Espinoza MD Cosigner Signature (If Indicated): Date CC: Lina Candelaria DO 11-Nov-2015 Brain/Head without Contrast Result: Comments: See Note; NOTES: [facility] Imaging Services [address] [place] [address] Verdana 4d Brain/Head without Contrast MR#: [id number] Acct: [id number] Name: DOUG MORIN Rep #: [id number] : 1990 F 25 From: Everton Wolff MD PCP: Lina Candelaria DO Status: [facility] Study: Brain/Head without Contrast Date of Exam: 11/11/15 Exam# [id number] Ordering Dr: Everardo Espinoza MD STUDY: CT BRAIN WITHOUT CONTRAST REASON FOR EXAM: Female, 25 years old. Left facial weakness and drooling. History of epilepsy. RADIATION DOSAGE (If Supplied By Facility) : CTDIvol = ( 60.81 ) mGy, DLP = ( 1021.47 ) mGycm TECHNIQUE: Transaxial CT imaging of the brain was performed without administration of intravenous contrast material. Individualized dose optimiza tion techniques were used for this CT. COMPARISON: MR brain June 21, 2015 FINDINGS: Normal soft tissue structures. Normal calvarium. Normal size ventricle s and extra-axial spaces for the patient's age. Normal white matter tracts of the cerebral hemispheres. Normal basal ganglia and thalami. Normal brainstem. Normal cerebellum. There is no intracrania l hemorrhage. There are no findings of an acute ischemic infarction. Normal visualized paranasal sinuses. IMPRESSION: Normal unenhanced CT scan of the brain. Electronically Signed: Everton Wolff MD at 17:00 EDT , Service support [phone], CC: EVERARDO ESPINOZA MD; Lina Candelaria DO Canine Service Instructor Trainer: Signed 21-Jun-2015 Brain without Contrast Result: Comments: See Note; NOTES: [facility] Imaging Services [address] [place] [address] Ver[address] 4d Brain without Contrast MR#: [id number] Acct: [id number] Name: DOUG JONES Rep #: [id number] : 1990 F 24 From: Khadar Miller MD PCP: Lina Candelaria DO Status: REG CLI Study: Brain without Contrast Date of Exam: 06/21/15 Exam# [id number] Ordering Dr: Audrey Candelaria DO STUDY: MRI BRAIN WITHOUT CONTRAST REASON FOR EXAM: Female, 24 years old. Migraines with nausea and vomiting x many months. TECHNIQUE: Standardized multiplanar fat and water weighted pulse sequences were obtained. COMPARISON: None. FINDINGS: Normal size of the ventricles and extra-axial spaces for the patient's age. Normal white matter tra cts of the supratentorial brain. Normal bilateral basal ganglia. Normal thalami. There is no extra-axial fluid accumulation. Normal flow voids within the major intracranial circulation suggesting patency by spin echo criteria. Normal sella turcica, pituitary gland, infundibular stalk, optic chiasm and hypothalamus. Normal tectal plate and pineal gland. Normal midbrain, irma and medulla. Nor mal cerebellum. Normal basal cisterns. Normal bilateral temporal bones. Normal bilateral internal auditory canals. No demonstrated orbital abnormality, within the constraints of a routine brain shemar dy. Normal visualized paranasal sinuses. Normal calvarium and skull base. Normal visualized soft tissue structures. Normal visualized upper cervical spine. IMPRE SSION: Normal unenhanced MRI of the brain. Electronically Signed: Khadar Miller MD at 15:50 EST , Service support [phone], CC: Lina Candelaria DO Canine Service Instructor Trainer: Signed 26-Feb-2015 Spirometry ([id number]) Comments: mild airway obstruction Result: 26-Feb-2015 ELECTROCARDIOGRAM, COMPLETE (ECG) (94997) Result: [MEASUREMENTS ANALYSIS] Date of Test: 02/26/2015 11:18:05; Heart Rate: 77; KS Interval: 182; QRS: 100; QT Interval: 378; Corrected QT Interval (QTc): 407; P [place]: 56; QRS [place]: 44; T [place] : 34; Blood Pressure: 104/66 [ECG DIAGNOSTIC STATEMENTS] Date of Test: 02/26/2015 11:18:05; Summary: Sinus Rhythm WITHIN NORMAL LIMITS Vital Signs Date Test Result Details [id number] Temperature 97.5 f Comments: Method: Temporal Pulse 76 /min Comments: Pattern: Regular Respiration Rate 16 /min Comments: Pattern: Unlabored O2 SAT 100 % Comments: Room air BP Systolic 104 mm[Hg] Comments: Patient Position: Sitting; Cuff Location: Left Arm; Cuff Size: Standard BP Diastolic 70 mm[Hg] Comments: Patient Position: Sitting; Cuff Location: Left Arm; Cuff Size: Standard Weight 130 lb Height 64 in Body Mass Index Calculated 22.31 kg/m2 Body Surface Area Calculated 1.63 m2 [id number]-Gvt-[id number]:17 Temperature 98.3 f Comments: Method: Temporal Pulse 102 /min Comments: Pattern: Regular Respiration Rate 16 /min Comments: Pattern: Unlabored O2 SAT 99 % Comments: Room air BP Systolic 102 mm[Hg] Comments: Patient Position: Sitting; Cuff Location: Left Arm; Cuff Size: Standard BP Diastolic 68 mm[Hg] Comments: Patient Position: Sitting; Cuff Location: Left Arm; Cuff Size: Standard Weight 130 lb Height 64 in Body Mass Index Calculated 22.31 kg/m2 Body Surface Area Calculated 1.63 m2 :29 Temperature 98.2 f Comments: Method: Temporal Pulse 96 /min Comments: Pattern: Regular Respiration Rate 16 /min Comments: Pattern: Unlabored O2 SAT 97 % Comments: Room air BP Systolic 108 mm[Hg] Comments: Patient Position: Sitting; Cuff Location: Left Arm; Cuff Size: Standard BP Diastolic 62 mm[Hg] Comments: Patient Position: Sitting; Cuff Location: Left Arm; Cuff Size: Standard Weight 128.5 lb Height 64 in Body Mass Index Calculated 22.06 kg/m2 Body Surface Area Calculated 1.62 m2 :09 Temperature 96.8 f Comments: Method: Temporal Pulse 101 /min Comments: Pattern: Regular Respiration Rate 16 /min Comments: Pattern: Unlabored O2 SAT 99 % Comments: Room air BP Systolic 102 mm[Hg] Comments: Patient Position: Sitting; Cuff Location: Left Arm; Cuff Size: Standard BP Diastolic 72 mm[Hg] Comments: Patient Position: Sitting; Cuff Location: Left Arm; Cuff Size: Standard Weight 137.125 lb Height 64 in Body Mass Index Calculated 23.54 kg/m2 Body Surface Area Calculated 1.67 m2 :57 Temperature 98.2 f Comments: Method: Temporal Pulse 80 /min Comments: Pattern: Regular Respiration Rate 16 /min Comments: Pattern: Unlabored O2 SAT 97 % Comments: Room air BP Systolic 108 mm[Hg] Comments: Patient Position: Sitting; Cuff Location: Left Arm; Cuff Size: Standard BP Diastolic 60 mm[Hg] Comments: Patient Position: Sitting; Cuff Location: Left Arm; Cuff Size: Standard Weight 137.125 lb Height 64 in Body Mass Index Calculated 23.54 kg/m2 Body Surface Area Calculated 1.67 m2 :59 Temperature 97.7 f Pulse 78 /min Comments: Pattern: Regular Respiration Rate 16 /min Comments: Pattern: Unlabored BP Systolic 118 mm[Hg] Comments: Patient Position: Sitting; Cuff Location: Left Arm; Cuff Size: Standard BP Diastolic 76 mm[Hg] Comments: Patient Position: Sitting; Cuff Location: Left Arm; Cuff Size: Standard Weight 137.125 lb Height 64 in Body Mass Index Calculated 23.54 kg/m2 Body Surface Area Calculated 1.67 m2 :01 Temperature 97.8 f Pulse 91 /min Comments: Pattern: Regular Respiration Rate 18 /min Comments: Pattern: Unlabored O2 SAT 98 % Comments: Room air BP Systolic 116 mm[Hg] Comments: Patient Position: Sitting; Cuff Location: Left Arm; Cuff Size: Standard BP Diastolic 80 mm[Hg] Comments: Patient Position: Sitting; Cuff Location: Left Arm; Cuff Size: Standard Weight 137.125 lb Height 64 in Body Mass Index Calculated 23.54 kg/m2 Body Surface Area Calculated 1.67 m2 :23 Pulse 94 /min Comments: Pattern: Regular Respiration Rate 18 /min Comments: Pattern: Unlabored O2 SAT 99 % Comments: Room air BP Systolic 120 mm[Hg] BP Diastolic 68 mm[Hg] Weight 137.125 lb Height 64 in Body Mass Index Calculated 23.54 kg/m2 Body Surface Area Calculated 1.67 m2 :29 Temperature 97.9 f Pulse 73 /min Comments: Pattern: Regular Respiration Rate 16 /min Comments: Pattern: Unlabored O2 SAT 99 % Comments: Room air BP Systolic 118 mm[Hg] Comments: Patient Position: Sitting; Cuff Location: Left Arm; Cuff Size: Standard BP Diastolic 72 mm[Hg] Comments: Patient Position: Sitting; Cuff Location: Left Arm; Cuff Size: Standard Weight 125.25 lb Height 64 in Body Mass Index Calculated 21.5 kg/m2 Body Surface Area Calculated 1.6 m2 :09 Temperature 97.9 f Pulse 94 /min Comments: Pattern: Regular Respiration Rate 18 /min Comments: Pattern: Unlabored O2 SAT 97 % Comments: Room air BP Systolic 98 mm[Hg] Comments: Patient Position: Sitting; Cuff Location: Left Arm; Cuff Size: Standard BP Diastolic 70 mm[Hg] Comments: Patient Position: Sitting; Cuff Location: Left Arm; Cuff Size: Standard Weight 125.25 lb Height 64 in Body Mass Index Calculated 21.5 kg/m2 Body Surface Area Calculated 1.6 m2 :38 Temperature 98.4 f Pulse 84 /min Comments: Pattern: Regular Respiration Rate 17 /min Comments: Pattern: Unlabored O2 SAT 98 % Comments: Room air BP Systolic 108 mm[Hg] Comments: Patient Position: Sitting; Cuff Location: Left Arm; Cuff Size: Standard BP Diastolic 68 mm[Hg] Comments: Patient Position: Sitting; Cuff Location: Left Arm; Cuff Size: Standard Weight 124 lb Height 64 in Body Mass Index Calculated 21.28 kg/m2 Body Surface Area Calculated 1.6 m2 :12 Temperature 98.6 f Pulse 93 /min Comments: Pattern: Regular Respiration Rate 17 /min Comments: Pattern: Unlabored O2 SAT 99 % Comments: Room air BP Systolic 102 mm[Hg] Comments: Patient Position: Sitting; Cuff Location: Left Arm; Cuff Size: Standard BP Diastolic 64 mm[Hg] Comments: Patient Position: Sitting; Cuff Location: Left Arm; Cuff Size: Standard Weight 123.25 lb Height 64 in Body Mass Index Calculated 21.16 kg/m2 Body Surface Area Calculated 1.59 m2 :23 Temperature 98 f Pulse 91 /min Comments: Pattern: Regular Respiration Rate 16 /min Comments: Pattern: Unlabored O2 SAT 98 % Comments: Room air BP Systolic 108 mm[Hg] Comments: Patient Position: Sitting; Cuff Location: Left Arm; Cuff Size: Standard BP Diastolic 58 mm[Hg] Comments: Patient Position: Sitting; Cuff Location: Left Arm; Cuff Size: Standard Weight 117.5 lb Height 64 in Body Mass Index Calculated 20.17 kg/m2 Body Surface Area Calculated 1.56 m2 :13 Temperature 97.6 f Pulse 73 /min Comments: Pattern: Regular Respiration Rate 16 /min Comments: Pattern: Unlabored O2 SAT 99 % Comments: Room air BP Systolic 108 mm[Hg] Comments: Patient Position: Sitting; Cuff Location: Left Arm; Cuff Size: Standard BP Diastolic 66 mm[Hg] Comments: Patient Position: Sitting; Cuff Location: Left Arm; Cuff Size: Standard Weight 120.5 lb Height 64 in Body Mass Index Calculated 20.68 kg/m2 Body Surface Area Calculated 1.58 m2 :09 Temperature 97.6 f Pulse 104 /min Comments: Pattern: Regular Respiration Rate 16 /min Comments: Pattern: Unlabored O2 SAT 99 % Comments: Room air BP Systolic 114 mm[Hg] Comments: Patient Position: Sitting; Cuff Location: Left Arm; Cuff Size: Standard BP Diastolic 68 mm[Hg] Comments: Patient Position: Sitting; Cuff Location: Left Arm; Cuff Size: Standard Weight 120.5 lb Height 64 in Body Mass Index Calculated 20.68 kg/m2 Body Surface Area Calculated 1.58 m2 :35 Pulse 94 /min Comments: Pattern: Regular Respiration Rate 18 /min Comments: Pattern: Unlabored O2 SAT 99 % Comments: Room air BP Systolic 102 mm[Hg] Comments: Patient Position: Sitting; Cuff Location: Left Arm; Cuff Size: Standard BP Diastolic 68 mm[Hg] Comments: Patient Position: Sitting; Cuff Location: Left Arm; Cuff Size: Standard Weight 122 lb Height 64 in Body Mass Index Calculated 20.94 kg/m2 Body Surface Area Calculated 1.59 m2 :38 Pulse 110 /min Comments: Pattern: Regular O2 SAT 98 % Comments: Room air BP Systolic 110 mm[Hg] Comments: Patient Position: Sitting; Cuff Location: Right Arm; Cuff Size: Standard BP Diastolic 60 mm[Hg] Comments: Patient Position: Sitting; Cuff Location: Right Arm; Cuff Size: Standard Weight 117.375 lb Height 64 in Body Mass Index Calculated 20.15 kg/m2 Body Surface Area Calculated 1.56 m2 :02 Temperature 97.8 f Pulse 88 /min Comments: Pattern: Regular Respiration Rate 16 /min Comments: Pattern: Unlabored O2 SAT 98 % Comments: Room air BP Systolic 102 mm[Hg] Comments: Patient Position: Sitting; Cuff Location: Left Arm; Cuff Size: Standard BP Diastolic 64 mm[Hg] Comments: Patient Position: Sitting; Cuff Location: Left Arm; Cuff Size: Standard Weight 119.25 lb Height 64 in Body Mass Index Calculated 20.47 kg/m2 Body Surface Area Calculated 1.57 m2 :25 Temperature 98 f Pulse 82 /min Comments: Pattern: Regular Respiration Rate 16 /min Comments: Pattern: Unlabored O2 SAT 97 % Comments: Room air BP Systolic 104 mm[Hg] Comments: Patient Position: Sitting; Cuff Location: Left Arm; Cuff Size: Standard BP Diastolic 66 mm[Hg] Comments: Patient Position: Sitting; Cuff Location: Left Arm; Cuff Size: Standard Weight 119.25 lb Height 64 in Body Mass Index Calculated 20.47 kg/m2 Body Surface Area Calculated 1.57 m2 Results Date Description Value Details :03 Basic Metabolic Profile (BMP) Comments: [facility] [address] [place], [place], [phone] GAP 9 (Normal) Range: 5-15 CO2 19.0 mmol/L (Abnormal) Range: 21.0-32.0 CL 110 mmol/L (Abnormal) Range: 98-107 K 3.3 mmol/L (Abnormal) Range: 3.5-5.1 NA 138 mmol/L (Normal) Range: 136-145 CA 8.8 mg/dL (Normal) Range: 8.5-10.1 BUN/CRE 13.6 {RATIO} (Normal) Range: 10-20 Estimated CRCL 74.60 ml/min (Normal) EST GFR - AA 97 mL/min (Normal) Comments: GFR Calc EST GFR 81 mL/min (Normal) Comments: Non- GFR Calc CREAT,SERUM 0.88 mg/dL (Normal) Range: 0.55-1.02 Comments: The validity of the calculated GFR AND GFRAA in patients over70 years has not been determined. Clinical correlation isessential. BUN 12 mg/dL (Normal) Range: 7-18 GLU 115 mg/dL (Abnormal) Range: 74-106 Comments: Fasting Glucose result from 100 to 125 mg/dLsuggests IMPAIRED HOMEOSTASIS per A.D.A. criteria.Please note revised GLUCOSE reference range vdceenczc59/02/2018. 37-Ghu-964809:03 CBC W/Diff, Automated Comments: [facility] [address] [place], [place], [phone] HYPERSEG RARE (Normal) Absolute Lymph 0.48 {X10_3/ul} (Abnormal) Range: 0.83-4.51 Absolute Neut 8.7 {X10_3/uL} (Abnormal) Range: 2.0-7.7 IM GRAN % 0.100 % (Normal) Range: 0.0-0.9 Comments: IG% - Immature Granulocytes (promyelocytes, myelocytes andmetamyelocytes) > 1% indicates that a LEFT SHIFT is Present. BASO% 0.1 % (Normal) Range: 0-1 EO% 0.0 % (Normal) Range: 0-5 MONO% 0.9 % (Normal) Range: 0-10 LY% 5.2 % (Abnormal) Range: 19-41 NEUT% 93.7 % (Abnormal) Range: 47-70 MPV 9.5 fL (Normal) Range: 6.2-12.0 PLT 265 K/mm3 (Normal) Range: 150-450 RDW SD 40.5 fL (Normal) Range: 35.1-43.9 RDW CV 13.3 % (Normal) Range: 11.6-14.6 MCHC 34.4 {g/gl} (Normal) Range: 32-36 MCH 28.8 pg (Normal) Range: 27.0-32.0 MCV 83.8 fL (Normal) Range: 81-99 HCT 37.2 % (Normal) Range: 37-47 HGB 12.8 g/dL (Normal) Range: 12.0-15.0 RBC 4.44 {M/mm3} (Normal) Range: 4.2-5.4 WBC 9.3 K/mm3 (Normal) Range: 4.4-11.0 40-Dgm-553733:48 URINE SARAH BETH CULTURE (TEN COL Comments: PATIENT NOT FASTINGPERFORMED BY: [employer] Yfrazz7423 [facility] [id number] COUNT) (89784) Result 1 MUG (Normal) Comments: Mixed urogenital flora1,000 Colonies/mL Urine Culture,Comprehensive Final report (Normal) 61-Ncm-768408:48 TSH (85763) Comments: PATIENT NOT FASTINGPERFORMED BY: [facility] Imrwpl5607 [facility] [id number] TSH 2.510 {uIU/mL} (Normal) Range: 0.450-4.500 02-Rho-414672:48 CBC, Platelets & Auto Comments: PATIENT NOT FASTINGPERFORMED BY: [facility] Rulkes4323 [facility] [id number] Information: SRC:UC Diff (53254) Immature Grans (Abs) 0.0 {x10E3/uL} (Normal) Range: 0.0-0.1 Immature Granulocytes 0 % (Normal) Baso (Absolute) 0.0 {x10E3/uL} (Normal) Range: 0.0-0.2 Eos (Absolute) 0.2 {x10E3/uL} (Normal) Range: 0.0-0.4 Monocytes(Absolute) 0.5 {x10E3/uL} (Normal) Range: 0.1-0.9 Lymphs (Absolute) 2.3 {x10E3/uL} (Normal) Range: 0.7-3.1 Neutrophils (Absolute) 4.5 {x10E3/uL} (Normal) Range: 1.4-7.0 Basos 0 % (Normal) Eos 2 % (Normal) Monocytes 7 % (Normal) Lymphs 30 % (Normal) Neutrophils 61 % (Normal) Platelets 331 {x10E3/uL} (Normal) Range: 150-379 RDW 14.4 % (Normal) Range: 12.3-15.4 MCHC 33.6 g/dL (Normal) Range: 31.5-35.7 MCH 28.0 pg (Normal) Range: 26.6-33.0 MCV 83 fL (Normal) Range: 79-97 Hematocrit 37.8 % (Normal) Range: 34.0-46.6 Hemoglobin 12.7 g/dL (Normal) Range: 11.1-15.9 RBC 4.53 {x10E6/uL} (Normal) Range: 3.77-5.28 WBC 7.4 {x10E3/uL} (Normal) Range: 3.4-10.8 18-Obo-095896:24 Urinalysis, Office (00707) UA - LEUKOCYTE ESTERASE Negative (Normal) UA - NITRITE Negative (Normal) URINE UROBILINGN TEN TIMED Normal mg/dL (Normal) UA - PROTEIN Negative mg/dL (Normal) UA - BLOOD Hemolyzed Large (Normal) UA - SPECIFIC GRAVITY 1.030 (Abnormal) UA - KETONES Negative mg/dL (Normal) UA - BILIRUBIN Small (Normal) UA - GLUCOSE Negative (Normal) 07-Jan-20184:50 Urinalysis, Complete Comments: How was Urine Obtained? [facility] [address] [place], [place], [phone] MUCUS, URINE 1+ {/hpf} (Normal) BACTERIA 1+ {/hpf} (Normal) SQUAM EPI 5-10 SEEN {/hpf} (Normal) Range: 5-10 RBC-UA 0 SEEN {/hpf} (Normal) Range: 0-5 WBC 5-10 SEEN {/hpf} (Normal) Range: 0-5 LEUK ESTERASE 100 /ul (Abnormal) OCCULT BLOOD-UR 10 /ul (Abnormal) NITRITE UR Negative (Normal) UROBILI Normal mg/dL (Normal) PROT DIPSTX 15 mg/dL (Abnormal) pH UR 7.0 (Normal) Range: 5.0 - 8.0 SP.GR. DIPSTX 1.015 (Normal) Range: 1.002-1.030 KETONE UR Negative mg/dL (Normal) BILIRUBIN URINE Negative mg/dL (Normal) GLUCOSE, UR Normal mg/dL (Normal) CLARITY Cloudy (Normal) COLOR Yellow (Normal) :20 CBC W/Diff, Automated Comments: [facility] [address] [place], [place], [phone] Absolute Lymph 2.28 {X10_3/ul} (Normal) Range: 0.83-4.51 Absolute Neut 3.8 {X10_3/uL} (Normal) Range: 2.0-7.7 IM GRAN % 0.000 % (Normal) Range: 0.0-0.9 Comments: IG% - Immature Granulocytes (promyelocytes, myelocytes andmetamyelocytes) > 1% indicates that a LEFT SHIFT is Present. BASO% 0.4 % (Normal) Range: 0-1 EO% 2.4 % (Normal) Range: 0-5 MONO% 7.0 % (Normal) Range: 0-10 LY% 34.1 % (Normal) Range: 19-41 NEUT% 56.1 % (Normal) Range: 47-70 MPV 9.2 fL (Normal) Range: 6.2-12.0 PLT 220 K/mm3 (Normal) Range: 150-450 RDW SD 41.2 fL (Normal) Range: 35.1-43.9 RDW CV 13.6 % (Normal) Range: 11.6-14.6 MCHC 32.8 {g/gl} (Normal) Range: 32-36 MCH 27.3 pg (Normal) Range: 27.0-32.0 MCV 83.3 fL (Normal) Range: 81-99 HCT 38.4 % (Normal) Range: 37-47 HGB 12.6 g/dL (Normal) Range: 12.0-15.0 RBC 4.61 {M/mm3} (Normal) Range: 4.2-5.4 WBC 6.7 K/mm3 (Normal) Range: 4.4-11.0 07-Jan-20184:20 Comprehensive Metabolic Profil Comments: [facility] [address] [place], [place], [phone] GAP 9 (Normal) Range: 5-15 CO2 21.0 mmol/L (Normal) Range: 21.0-32.0 CL 112 mmol/L (Abnormal) Range: 98-107 K 3.5 mmol/L (Normal) Range: 3.5-5.1 NA 142 mmol/L (Normal) Range: 136-145 T BILI 0.30 mg/dL (Normal) Range: 0.20-1.00 ALT 16 U/L (Normal) Range: 13-56 ALK P 71 U/L (Normal) Range: 45-117 AST 11 U/L (Abnormal) Range: 15-37 CA 8.7 mg/dL (Normal) Range: 8.5-10.1 A/G 1.3 {RATIO} (Normal) Range: 0.9-2.4 GLOB 3.1 g/dL (Normal) Range: 2.2-4.2 ALB 4.0 g/dL (Normal) Range: 3.2-5.0 T PROT 7.1 g/dL (Normal) Range: 6.4-8.2 BUN/CRE 19.3 {RATIO} (Normal) Range: 10-20 Estimated CRCL 88.03 ml/min (Normal) EST GFR - AA 113 mL/min (Normal) Comments: GFR Calc EST GFR 93 mL/min (Normal) Comments: Non- GFR Calc CREAT,SERUM 0.78 mg/dL (Normal) Range: 0.55-1.02 Comments: The validity of the calculated GFR AND GFRAA in patients over70 years has not been determined. Clinical correlation isessential. BUN 15 mg/dL (Normal) Range: 7-18 GLU 85 mg/dL (Normal) Range: 74-106 Comments: Please note revised GLUCOSE reference range nbodowpyf48/02/2018. :20 ,Serum,hCG Quali. Comments: [facility] [address] [place], [place], [phone] HCGSQUAL NEGATIVE {Negative} (Normal) Range: 0-9 Nonpreg HCG Qual triggr < 1 m[iU]/mL (Normal) 90-Dyt-41175:25 ,Serum,hCG Quali. Comments: [facility] [address] [place], [phone] HCGSQUAL NEGATIVE {Negative} (Normal) Range: 0-9 Nonpreg HCG Qual triggr < 1 m[iU]/mL (Normal) 0-Ccg-210749:10 Basic Metabolic Profile (BMP) Comments: [facility] [address] [place], [phone] GAP 9 (Normal) Range: 5-15 CO2 22.0 mmol/L (Normal) Range: 21.0-32.0 CL 111 mmol/L (Abnormal) Range: 98-107 K 3.6 mmol/L (Normal) Range: 3.5-5.1 NA 142 mmol/L (Normal) Range: 136-145 CA 8.6 mg/dL (Normal) Range: 8.5-10.1 BUN/CRE 14.8 {RATIO} (Normal) Range: 10-20 Estimated CRCL 92.79 ml/min (Normal) EST GFR - AA 119 mL/min (Normal) Comments: GFR Calc EST GFR 98 mL/min (Normal) Comments: Non- GFR Calc CREAT,SERUM 0.74 mg/dL (Normal) Range: 0.55-1.02 Comments: The validity of the calculated GFR AND GFRAA in patients over70 years has not been determined. Clinical correlation isessential. BUN 11 mg/dL (Normal) Range: 7-18 GLU 84 mg/dL (Normal) Range: 74-106 Comments: Please note revised GLUCOSE reference range wmbtkdino98/02/2018. 7-Wlp-076866:10 CBC W/Diff, Automated Comments: [facility] [address] [place], [phone] Absolute Lymph 1.51 {X10_3/ul} (Normal) Range: 0.83-4.51 Absolute Neut 4.6 {X10_3/uL} (Normal) Range: 2.0-7.7 IM GRAN % 0.000 % (Normal) Range: 0.0-0.9 Comments: IG% - Immature Granulocytes (promyelocytes, myelocytes andmetamyelocytes) > 1% indicates that a LEFT SHIFT is Present. BASO% 0.3 % (Normal) Range: 0-1 EO% 1.8 % (Normal) Range: 0-5 MONO% 6.8 % (Normal) Range: 0-10 LY% 22.4 % (Normal) Range: 19-41 NEUT% 68.7 % (Normal) Range: 47-70 MPV 9.3 fL (Normal) Range: 6.2-12.0 PLT 225 K/mm3 (Normal) Range: 150-450 RDW SD 41.5 fL (Normal) Range: 35.1-43.9 RDW CV 13.6 % (Normal) Range: 11.6-14.6 MCHC 32.3 {g/gl} (Normal) Range: 32-36 MCH 26.9 pg (Abnormal) Range: 27.0-32.0 MCV 83.3 fL (Normal) Range: 81-99 HCT 37.8 % (Normal) Range: 37-47 HGB 12.2 g/dL (Normal) Range: 12.0-15.0 RBC 4.54 {M/mm3} (Normal) Range: 4.2-5.4 WBC 6.7 K/mm3 (Normal) Range: 4.4-11.0 9-Czt-442672:10 Lamotrigine (Lamictal) Level Comments: [facility] (refer to report for specific site)refer to report for address and phone number LAMOTRIG [id number] 4.5 ug/mL (Normal) Range: 2.0-20.0 Comments: Detection Limit = 1.0Performed at: [address] [id number] Director: Oscar Lynn MD, Phone: [phone] 1-Ltz-804872:10 Magnesium Comments: [facility] [address] [place], [place], [phone] MG 1.9 mg/dL (Normal) Range: 1.6-2.6 3-Mht-544999:10 Phosphorus Comments: [facility] [address] [place], [phone] PHOS 2.7 mg/dL (Normal) Range: 2.5-4.9 1-Era-541458:50 Human Herpsvirus 6 (HHV-6), Comments: PATIENT NOT FASTINGPERFORMED BY: [address] [id number] im (05719) Human Herpes Virus Type <1:10 (Normal) Comments: This test was developed and its performance characteristicsdetermined by [employer]. It has not been cleared or approvedby the Food and Drug Administration. 6 IgM 5-Cjn-779584:50 Human Herpsvirus 6 (HHV-6) Comments: PATIENT NOT FASTINGPERFORMED BY: [address] [id number] Antibodies, img (49945) HHV 6 IgG Antibodies 6.10 {index} Comments: Negative <0.76 Equivocal 0.76 - 0.99 Positive >0.99 Results for this test (Abnormal) are for research purposes only by the assay's director e learning. The performance characteristics of this product have not been established. Results should not be used as a diagnostic procedure without confirmation of the diagnosis by another medically established diagnostic product or procedure. Hemoglobin A1c 4.8 % (Normal) Comments: PATIENT NOT FASTINGPERFORMED BY: [facility]St[facility] CenterOwfnda3824 [facility] [id number] 6:15 Range: 4.8-5.6 Comments: . Pre-diabetes: 5.7 - 6.4 Diabetes: >6.4 Glycemic control for adults with diabetes: <7.0 Written Authorization WAR (Normal) Comments: PATIENT NOT FASTINGPERFORMED BY: [facility]St[facility] CenterKfmfos1542 [facility] [id number] 6:15 Comments: Written Authorization Received.Authorization received from HIRA JAIMES RN [id number] by Skylar Calle 06-Dui-633816:15 CMV IGM ANTBDY (10485) Comments: PATIENT NOT FASTINGPERFORMED BY: [facility]St[facility] CenterPtcvlo9232 [facility] [id number] Cytomegalovirus (CMV) Ab, IgM <30.0 AU/mL (Normal) Range: 0.0-29.9 Comments: Negative <30.0 Equivocal 30.0 - 34.9 Positive >34.9 A positive result is generally indicative of acute infection, reactivation or persistent IgM production. 33-Air-749410:15 EBV Panel (66481) Comments: PATIENT NOT FASTINGPERFORMED BY: [facility]St[facility] CenterYvdxdx2429 [facility] [id number] Interpretation: SPRCS (Normal) Comments: EBV Interpretation Chart . Interpretation EBV-IgM EA(D)-IgG VCA-IgG EBNA-IgG . EBV Seronegative - - - - Early Phase + - - - Acute Primary + +or- + - Infection Convalescence/Past - +or- + + Infection Reactivated +or- + + + Infection + Antibody Present - Antibody Absent EBV Nuclear Antigen Ab, IgG 249.0 U/mL (Abnormal) Range: 0.0-17.9 Comments: Negative <18.0 Equivocal 18.0 - 21.9 Positive >21.9 EBV Ab VCA, IgG 99.6 U/mL (Abnormal) Range: 0.0-17.9 Comments: Negative <18.0 Equivocal 18.0 - 21.9 Positive >21.9 EBV Early Antigen Ab, IgG <9.0 U/mL (Normal) Range: 0.0-8.9 Comments: Negative < 9.0 Equivocal 9.0 - 10.9 Positive >10.9 EBV Ab VCA, IgM <36.0 U/mL (Normal) Range: 0.0-35.9 Comments: Negative <36.0 Equivocal 36.0 - 43.9 Positive >43.9 89-Qmb-439878:15 CALCIFIDIOL (87656) VIT D 25 Comments: PATIENT NOT FASTINGPERFORMED BY: [facility]CoSt. [facility] CenterHtqlhx0076 [facility] [id number] Vitamin D, 25-Hydroxy 19.4 ng/mL (Abnormal) Range: 30.0-100.0 Comments: Vitamin D deficiency has been defined by the Vista ofMedicine and an Endocrine Society practice guideline as alevel of serum 25-OH vitamin D less than 20 ng/mL (1,2).The Endocrine Society went on to further define vitamin Dinsufficiency as a level between 21 and 29 ng/mL (2).1. IOM ([employer]ista of Medicine). 2010. Dietary reference intakes for calcium and D. [place]: The National Academies Press.2. Soalnge GOMES, Maximiliano GARCIA, Earle ALMARAZ, et al. Evaluation, treatment, and prevention of vitamin D deficiency: an Endocrine Society clinical practice guideline. JCEM. 2010; 96(7):1911-30. 10-Jtb-236193:15 Folate (32416) Comments: PATIENT NOT FASTINGPERFORMED BY: CB [facility] Ffitqo8[address] Steven RoadDublin [place] [id number] Folate (Folic Acid), Serum 5.9 ng/mL (Normal) Comments: A serum folate concentration of less than 3.1 ng/mL isconsidered to represent clinical deficiency. 65-Xpe-880570:15 VITAMIN B-12 (CYANOCOBALAMIN) Comments: PATIENT NOT FASTINGPERFORMED BY: CB [facility] Bpcmhx7341 Steven RoadDublin [place] [id number] (75743) Vitamin B12 556 pg/mL (Normal) Range: 232-1245 59-Wep-243792:15 TSH (74768) Comments: PATIENT NOT FASTINGPERFORMED BY: CB [facility] Ljugrz034[address] Steven RoadDublin [place] [id number] TSH 2.320 {uIU/mL} (Normal) Range: 0.450-4.500 06-Idq-900277:15 SED RATE ERYTHROCYTE (84288) Comments: PATIENT NOT FASTINGPERFORMED BY: CB [facility] Fqggho7[address] [place] [id number] Sedimentation Rate-Westergren 13 mm/h (Normal) Range: 0-32 70-Rfh-006046:15 RHEUMATOID FACTOR-QUANT (81326) Comments: PATIENT NOT FASTINGPERFORMED BY: CB [facility] Wsxodo4726 [address] Road[address] [place] [id number] RA Latex Turbid. <10.0 {IU/mL} (Normal) Range: 0.0-13.9 57-Wua-006478:15 METABOLIC PANEL, COMPREHENSIVE Comments: PATIENT NOT FASTINGPERFORMED BY: CB [facility] Mvsibr5233 [address] RoadD[address] [place] [id number] (81859) ALT (SGPT) 13 [iU]/L (Normal) Range: 0-32 AST (SGOT) 14 [iU]/L (Normal) Range: 0-40 Alkaline Phosphatase, S 78 [iU]/L (Normal) Range: 39-117 Bilirubin, Total <0.2 mg/dL (Normal) Range: 0.0-1.2 A/G Ratio 2.0 (Normal) Range: 1.2-2.2 Globulin, Total 2.4 g/dL (Normal) Range: 1.5-4.5 Albumin, Serum 4.9 g/dL (Normal) Range: 3.5-5.5 Protein, Total, Serum 7.3 g/dL (Normal) Range: 6.0-8.5 Calcium, Serum 9.9 mg/dL (Normal) Range: 8.7-10.2 Carbon Dioxide, Total 21 mmol/L (Normal) Range: 18-29 Chloride, Serum 106 mmol/L (Normal) Range: 96-106 Potassium, Serum 3.7 mmol/L (Normal) Range: 3.5-5.2 Sodium, Serum 141 mmol/L (Normal) Range: 134-144 BUN/Creatinine Ratio 23 (Normal) Range: 9-23 eGFR If Africn Am 120 mL/min/1.73 (Normal) eGFR If NonAfricn Am 104 mL/min/1.73 (Normal) Creatinine, Serum 0.78 mg/dL (Normal) Range: 0.57-1.00 BUN 18 mg/dL (Normal) Range: 6-20 Glucose, Serum 109 mg/dL (Abnormal) Range: 65-99 83-Lyq-851494:15 C-REACTIVE PROTEIN (93033) Comments: PATIENT NOT FASTINGPERFORMED BY: LabCoSt. Francis Medical CenterIcrmmh6494 [address] [facility] [id number] C-Reactive Protein, Quant <0.3 mg/L (Normal) Range: 0.0-4.9 26-Wng-443991:15 CBC (AUTO) (41224) Comments: PATIENT NOT FASTINGPERFORMED BY: LabCoSt. Francis Medical CenterMcgael8425 [address] [facility] [id number] Platelets 310 {x10E3/uL} (Normal) Range: 150-379 RDW 14.5 % (Normal) Range: 12.3-15.4 MCHC 33.3 g/dL (Normal) Range: 31.5-35.7 MCH 26.9 pg (Normal) Range: 26.6-33.0 MCV 81 fL (Normal) Range: 79-97 Hematocrit 36.3 % (Normal) Range: 34.0-46.6 Hemoglobin 12.1 g/dL (Normal) Range: 11.1-15.9 RBC 4.50 {x10E6/uL} (Normal) Range: 3.77-5.28 WBC 8.5 {x10E3/uL} (Normal) Range: 3.4-10.8 37-Vyo-438690:15 RASHAD (ANTINUCLEAR ANTIBODY) Comments: PATIENT NOT FASTINGPERFORMED BY: LabMilestone SystemsSt. Francis Medical CenterGqjcuw6720 [facility] [id number] (01244) RASHAD Direct Negative (Normal) 2-Mpk-093651:35 PPD (03410) Comments: Lot:[id number]:08/17Dose:0.1Route:idSite:agustin Calderon By:LOCO signed SKIN TEST INTRADERMAL TB 0 mm (Normal) 89-Tur-80744:39 Urinalysis, Office (52872) UA - LEUKOCYTE ESTERASE Negative (Normal) UA - NITRITE Negative (Normal) URINE UROBILINGN TEN TIMED Normal mg/dL (Normal) UA - PROTEIN Negative mg/dL (Normal) UA - PH 8.5 (Normal) UA - BLOOD Negative (Normal) UA - SPECIFIC GRAVITY 1.020 (Normal) UA - KETONES Negative mg/dL (Normal) UA - BILIRUBIN Negative (Normal) UA - GLUCOSE Negative (Normal) 35-Itj-450539:06 Bedside Glucose Comments: [facility] LaboratoryPoint of [place] [address] [place] [address] BEDSIDE GLU 99 mg/dL (Normal) Range: 70-110 Comments: Policy and Physicians Orders followedMANAGEMENT OF PATIENT CARE PER NURSING PROTOCOL 46-Etw-61656:54 Protein Electro, Random Urine Comments: PERFORMED BY: [employer] Bxdzim1161 [facility] [id number] Please note: SPRCS (Normal) Comments: Protein electrophoresis scan will follow via computer, mail, orcourier delivery. M-Nasim, % Not Observed % (Normal) Gamma Globulin, U 10.5 % (Normal) Beta Globulin, U 18.5 % (Normal) Qafem-3-Jowqhqwt, U 8.4 % (Normal) Blche-7-Piiluaiy, U 3.3 % (Normal) Albumin, U 59.4 % (Normal) Protein,Total,Urine 15.3 mg/dL (Abnormal) Range: 0.0-15.0 :54 Protein Electro.,S Comments: PERFORMED BY: JORGE [facility] Glskwi0301 [facility] [id number] Please note: SPRCS (Normal) Comments: Protein electrophoresis scan will follow via computer, mail, orcourier delivery. A/G Ratio 1.8 (Normal) Range: 0.7-2.0 Globulin, Total 2.6 g/dL (Normal) Range: 2.0-4.5 M-Nasim Not Observed g/dL (Normal) Gamma Globulin 0.9 g/dL (Normal) Range: 0.5-1.6 Beta Globulin 0.9 g/dL (Normal) Range: 0.6-1.3 Vxbdi-8-Kaoennta 0.6 g/dL (Normal) Range: 0.4-1.2 Fauww-6-Ptapgwin 0.2 g/dL (Normal) Range: 0.1-0.4 Albumin 4.7 g/dL (Normal) Range: 3.2-5.6 Protein, Total, Serum 7.3 g/dL (Normal) Range: 6.0-8.5 Plan of Care Name Dates Details Instructions Non-smoker : Eprescribed prescriptions (G8553) Indication: Non-smoker BMI 22.0-22.9, adult : Follow up if no improvement or if symptoms worsen Indication: BMI 22.0-22.9, adult Lymph node enlargement : Reviewed Lab Indication: Lymph node enlargement Lymph node enlargement : Reviewed Diagnostic Tests Indication: Lymph node enlargement Night sweats : Reviewed Diagnostic Tests Indication: Night sweats Non-smoker : Eprescribed prescriptions (G8553) Indication: Non-smoker BMI 22.0-22.9, adult : Follow up in 2 weeks Indication: BMI 22.0-22.9, adult BMI 22.0-22.9, adult : Follow up in 2 weeks Indication: BMI 22.0-22.9, adult Non-smoker : Eprescribed prescriptions ([id number]) Indication: Non-smoker Non-smoker : Follow up in 1 month Indication: Non-smoker Atypical migraine : Reviewed Supervisor Roving Letter Indication: Atypical migraine Atypical chest pain : Reviewed ER note Indication: Atypical chest pain BMI 23.0-23.9, adult : Eprescribed prescriptions (G8553) Indication: BMI 23.0-23.9, adult Non-smoker : Eprescribed prescriptions (G8553) Indication: Non-smoker Facial pressure : Follow up if no improvement or if symptoms worsen Indication: Facial pressure Non-smoker : Eprescribed prescriptions (G8553) Indication: Non-smoker Non-smoker : Eprescribed prescriptions (G8553) Indication: Non-smoker Fatigue : *fatigue education Indication: Fatigue BMI 21.0-21.9, adult : Follow up if no improvement or if symptoms worsen Indication: BMI 21.0-21.9, adult Mild asthma : Eprescribed prescriptions (G8553) Indication: Mild asthma Sore throat : Eprescribed prescriptions (G8553) Indication: Sore throat BMI between 19-24,adult : Follow up in 3 weeks Indication: BMI between 19-24,adult Pain, flank, bilateral : Follow up if no improvement or if symptoms worsen Indication: Pain, flank, bilateral Pain, flank, bilateral : Reviewed Lab Indication: Pain, flank, bilateral Pleurisy : Reviewed Diagnostic Tests Indication: Pleurisy Atypical migraine : Eprescribed prescriptions (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) Indication: Atypical migraine Epilepsy : Follow up after consult Indication: Epilepsy Atypical migraine : Eprescribed prescriptions (G8553) Indication: Atypical migraine Vitamin D deficiency : Follow up if no improvement or if symptoms worsen Indication: Vitamin D deficiency Vitamin D deficiency : *Antibiotic Usage Education - Female Indication: Vitamin D deficiency Atypical migraine : Reviewed Diagnostic Tests Indication: Atypical migraine Bone pain : Reviewed Lab Indication: Bone pain Fatigue : Reviewed Lab Indication: Fatigue Epilepsy : Reviewed Supervisor Roving Letter Indication: Epilepsy Atypical migraine : Follow up in 3 weeks Indication: Atypical migraine Pleurisy : Follow up in 6 weeks Apr 12 with [facility] for spirometry Indication: Pleurisy Pleurisy : Follow up on Wednesday with [facility] Indication: Pleurisy Planned Observations QuantiFERON-TB Gold Plus (QFT-Plus) (83502)Indication: Salivary gland enlargement On: 71-Mbd-960144:35 Request Lyme Disease Antibody W/ Reflex (70282)Indication: Salivary gland enlargement On: 57-Aer-145885:34 Request CBC, PLATELETS & AUT DIFF (70370)Indication: Atypical chest pain On: 88-Laf-142253:45 Request C-REACT PROT HIGH SENS(hsCRP) (63435)Indication: Atypical chest pain On: :44 Request ESR-F (SED RATE ERYTHROCYTE - FEMALE) (05081)Indication: Atypical chest pain On: 77-Zqj-447356:44 Request RHEUMATOID FACTOR-QUANT (00381)Indication: Atypical chest pain On: :44 Request RASHAD (ANTINUCLEAR ANTIBODY) (25618)Indication: Atypical chest pain On: 18-Ytt-508641:43 Request METABOLIC PANEL, COMPREHENSIVE (59450)Indication: Blurred vision, bilateral On: 56-Lzp-733078:36 Request Rapid Flu (56123 x 2)Indication: Flu-like symptoms On: :11 Request Rapid Strep Test, Office (13761)Indication: Sore throat On: :10 Request RHEUMATOID FACTOR-QUANT (10340) test code [id number]: Pain in clavicular joint On: :59 Request Systemic Lupus Profile (61627)Indication: Pain in clavicular joint On: 53-Czo-475497:59 Request Metabolic Panel, Comprehensive (50407)Indication: Pain in clavicular joint On: 29-Exw-934393:58 Request TSH (32580)Indication: Pain in clavicular joint On: :58 Request CBC, Platelets & Auto Diff (85592)Indication: Pain in clavicular joint On: 73-Qaz-759873:58 Request MAGNESIUM (39201)Indication: Atypical migraine On: :54 Request CALCIFIDIOL (97745) VIT D 25Indication: Vitamin D deficiency On: :44 Request Serum Protein Electrophoresis (SPEP) (22884)Indication: Bone pain On: :38 Request Urine Protein Electrophoresis (UPEP) (46648)Indication: Bone pain On: :38 Request CALCIFIDIOL (81283) VIT D 25Indication: Fatigue On: 09-Vya-053403:25 Request Folate (55163)Indication: Fatigue On: 66-Rnp-059694:25 Request VITAMIN B-12 (CYANOCOBALAMIN) (62367)Indication: Fatigue On: Request TSH (50634)Indication: Fatigue On: Request SED RATE ERYTHROCYTE (18901)Indication: Fatigue On: Request RHEUMATOID FACTOR-QUANT (11893)Indication: Fatigue On: Request METABOLIC PANEL, COMPREHENSIVE (95441)Indication: Fatigue On: Request C-REACTIVE PROTEIN (80769)Indication: Fatigue On: Request CBC (AUTO) (80404)Indication: Fatigue On: Request RASHAD (ANTINUCLEAR ANTIBODY) (07877)Indication: Fatigue On: Request Planned Procedures CT - Neck (IV Contrast Needed)By: On: 07-Feb-2018 Intent Macy Akins CNP, CNP, Mary E Comments: soft tissue and lymph neck Spirometry (38175)By: Mable BANSAL On: 24-Dec-2017 Intent Macy Hughes CNP Comments: (#2 showing Spirometry (54356)By: Mable BANSAL, On: 24-Dec-2017 Intent Macy Hughes CNP Comments: #1 shwoing mild airway obstruction, aerosol then 2nd spirometry Aerosol Treatment (85621)By: Mable On: 24-Dec-2017 Intent Macy BANSAL CNP, Mary E CT SCAN OF HEAD OR BRAIN WITH AND On: 23-Dec-2017 Intent WITHOUT CONTRAST (60429)By: Mor Comments: STAT R/O Visual problems, aneursym Kaylyn COMPUTED TOMOGRAPHY ANGIOGRAPHY OF On: 23-Dec-2017 Intent CHEST FOR PULMONARY THROMBOEMBOLISM Comments: STAT R/O PE, Aneursym/Dissection ([id number])By: Kaylyn Juares ELECTROCARDIOGRAM, COMPLETE (ECG) On: 23-Dec-2017 Intent (80169)By: Kaylyn Juares Comments: Normal sinus rhythm-HR 69 Solu -Medrol Injection, 125 mg On: 10-Feb-2017 Intent ([id number])By: Macy Akins CNP, CNP, Mary E Spirometry (44884)By: Mable BANSAL On: 10-Feb-2017 Intent Macy Hughes CNP Comments: moderate airway obstruction Aerosol Treatment (54320)By: Frederic On: 10-Feb-2017 Intent [facility] - Femur - BilateralBy: On: 31-May-2015 Intent Lina Candelaria DO Radiology - Humerus - BilateralBy: On: 31-May-2015 Intent Lina Candelaria DO Radiology - Forearm - BilateralBy: On: 31-May-2015 Intent Lina Candelaria DO MRI BRAIN W/O CONTRAST ([id number])By: On: 31-May-2015 Intent Lina Candelaria DO Planned Medications INJECTION, METHYLPREDNISOLONE SODIUM SUCCINATE, UP TO 125 MG Ordered: 10-Feb-2017 Pending Mable BANSAL, Macy Akins CNP, Macy Hannon Instructions Name Dates Details Non-smoker : How to access health information online Indication: Non-smoker Non-smoker : How to access health information online - Detail Indication: Non-smoker Non-smoker : Patient Instructions Indication: Non-smoker Non-smoker : How to access health information online Indication: Non-smoker Non-smoker : How to access health information online - Detail Indication: Non-smoker Non-smoker : Patient Instructions Indication: Non-smoker Non-smoker : How to access health information online Indication: Non-smoker Non-smoker : How to access health information online - Detail Indication: Non-smoker Non-smoker : Patient Instructions Indication: Non-smoker BMI 23.0-23.9, adult : How to access health information online Indication: BMI 23.0-23.9, adult BMI 23.0-23.9, adult : How to access health information online - Detail Indication: BMI 23.0-23.9, adult BMI 23.0-23.9, adult : Patient Instructions Indication: BMI 23.0-23.9, adult Non-smoker : How to access health information online Indication: Non-smoker Non-smoker : How to access health information online - Detail Indication: Non-smoker Non-smoker : Patient Instructions Indication: Non-smoker Non-smoker : How to access health information online Indication: Non-smoker Non-smoker : How to access health information online - Detail Indication: Non-smoker Sinusitis, bacterial : Patient Instructions Indication: Sinusitis, bacterial Non-smoker : How to access health information online Indication: Non-smoker Non-smoker : How to access health information online - Detail Indication: Non-smoker Non-smoker : Patient Instructions Indication: Non-smoker BMI 21.0-21.9, adult : How to access health information online Indication: BMI 21.0-21.9, adult BMI 21.0-21.9, adult : How to access health information online - Detail Indication: BMI 21.0-21.9, adult BMI 21.0-21.9, adult : Patient Instructions Indication: BMI 21.0-21.9, adult Mild asthma : How to access health information online Indication: Mild asthma Mild asthma : How to access health information online - Detail Indication: Mild asthma Mild asthma : Patient Instructions Indication: Mild asthma Sore throat : How to access health information online Indication: Sore throat Sore throat : How to access health information online - Detail Indication: Sore throat Sore throat : Patient Instructions Indication: Sore throat Atypical migraine : How to access health information online Indication: Atypical migraine Atypical migraine : How to access health information online - Detail Indication: Atypical migraine Atypical migraine : Patient Instructions Indication: Atypical migraine Atypical migraine : How to access health information online Indication: Atypical migraine Atypical migraine : How to access health information online - Detail Indication: Atypical migraine Atypical migraine : Patient Instructions Indication: Atypical migraine Vitamin D deficiency : Patient Instructions Indication: Vitamin D deficiency Vitamin D deficiency : Patient Instructions Indication: Vitamin D deficiency Atypical migraine : How to access health information online Indication: Atypical migraine Atypical migraine : How to access health information online - Detail Indication: Atypical migraine Atypical migraine : Patient Instructions Indication: Atypical migraine Pleurisy : Patient Instructions Indication: Pleurisy Encounters Annotation/Addendum On: 18-Feb-2018 8:12 Encounter Diagnosis: Salivary gland enlargement End: 18-Feb-2018 15:37 [facility] Office Visit On: 11-Feb-2018 11:11 Encounter Reason: Speech Difficulty - Note for Speech difficulty: slurred speech at work today and difficulty speaking. This has ocured multiple times, has apt to see neurololgist Dr. Gilmore can see her on Wednesday. End: 11-Feb-2018 11:[address] Carloz Cheney at [facility] who put her on bactrim and prednisone., [ADDITIONAL REASON] Sore Throat - Note for Sore throat: Has left sided neck pain and swallowing issues, feels like ball in throat , [ADDITIONAL REASON] Dysphagia - Note for Dysphagia: Dysphagia and unable to eat out of straw. , [ADDITIONAL REASON] Rt hand weakness - Rt hand weakness. Encounter Diagnosis: BMI 22.0-22.9, adult, Non-smoker, Dysphagia, Slurred speech, Weakness of hand, History of parotitis, Epilepsy [facility] Office Visit On: 07-Feb-2018 15:15 Encounter Reason: Follow up acute care visit - The patient feels the same (throat feels the same-- feels like there is a ball in throat. hard to swallowstill having night sweats.). Note for Follow up acute care visit: End: 07-Feb-2018 16:17 Has apt with neurologist and Ent , for Wed ENt at 2:15 and neurologist. Wt loss stable, [ADDITIONAL REASON] Night sweats - The onset of the night sweats has been acute. The night sweats ar e described as profuse. The symptoms have been associated with chills and fatigue. Note for Night sweats: Has had drenching night sweats since Jan 16, having to change blanket and bed sheets. Has reg ular periods Got new control nexplanton placed around Jan 03, by Louise RODAS. Pt called mechanical assembly technician to see if side effect of nexplanton, but was told it was not the nexplanton and to see primary.O n going nights sweats with soaking bed and needing change of clothes , [ADDITIONAL REASON] Lymphadenopathy - Note for Lymphadenopathy: Has lymph node enlargement on left feels like big ball, on left side of neck and hard to swallow , [ADDITIONAL REASON] Sore Throat - Note for Sore throat: Has left sided neck pain and swallowing issues, feels like ball in throat, was treated with biaxin for presumed parotiditis, but not better. , [ADDITIONAL REASON] Speech Difficulty - Note for Speech difficulty: slurred speech Encounter Diagnosis: Non-smoker, BMI 22.0-22.9, adult, Night sweats, Lymph node enlargement [facility] Annotation/Addendum On: 26-Jan-2018 12:32 Encounter Diagnosis: Parotiditis End: 26-Jan-2018 16:06 [facility] Office Visit On: 24-Jan-2018 14:28 Encounter Reason: Night sweats - The onset of the night sweats has been acute. The night sweats are described as profuse. The symptoms have been associated with chills and fatigue. Note for Night sweats: Has had drench End: 24-Jan-2018 15:55 ing night sweats since Jan 16, having to change blanket and bed sheets. Has regular periods Got new control nexplanton placed around Jan 03, by Louise RODAS. Pt called mechanical assembly technician to see if side e ffect of nexplanton, but was told it was not the nexplanton and to see primary., [ADDITIONAL REASON] Follow up acute care visit - The patient improving. 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 Had grand mal Jan 07 , [ADDITIONAL REASON] Weight Loss - Note for Weight loss: 10 pound wt loss, in a month, patients mot her said she is not eating Encounter Diagnosis: Non-smoker, BMI 22.0-22.9, adult, Night sweats, Weight loss, Lymph node enlargement, History of anorexia nervosa, Parotiditis [facility] Office Visit On: 24-Dec-2017 10:07 Encounter Reason: Chest Pain - Symptoms include chest pain. The patient describes the pain as burning. Onset was 1 day(s) ago. Note for Chest pain: ER follow up, pt went to ER after seen in outpt by RECRUIT INSTRUCTOR CHICHI, with feeling End: 24-Dec-2017 11:46 of chest pain, ER suggesting this was pleurisy. Gave bendryl,torodol, and reglan, with improvement did not to CT testing as worry of too much contrast. Pt has had in past CT chest, head, etc. In past h ad work up RASHAD, RF, sed, wbc, crk, was diagnosed with peluricy and or atypical chest pain 01-07-16 and 02-09-16 thought at that time may be silent reflux. Today no complaints of rash, joint pain, dry mouth etc. Pain is on left side chest wall. Encounter Diagnosis: Non-smoker, BMI 23.0-23.9, adult, Atypical migraine, Atypical chest pain [facility] Office Visit On: 23-Dec-2017 12:57 Encounter Reason: Chest Pain - Symptoms include chest pain. The patient describes the pain as burning. Onset was 3 hour(s) ago. Note for Chest pain: Symptoms started a few hours ago with chest pain and burning while br End: 23-Dec-2017 15:08 eathing, left side of chest is worse when lying on it, also has nausea and blurred vision, slight headache. Blurred vision started about 45 min after the chest pain started. No SOB, fever or chills, hea rt burn. No chance of , not on control and no drug use.Encounter Diagnosis: BMI 23.0-23.9, adult, Non-smoker, Chest pain, Blurred vision, bilateral [facility] Office Visit On: 30-Nov-2017 14:56 Encounter Reason: Cold Symptoms - Onset was 4 day(s) ago. Note for Cold symptoms: Symptoms started about 5 days ago with sore throat, lost voice, runny nose- yellow, cough, headaches, facial tenderness, feels warm. No c End: 30-Nov-2017 15:22 hills, body aches, SOB, CP. Drinking plenty of fluids, taking benadryl at night, aleve.Encounter Diagnosis: BMI 23.0-23.9, adult, Non-smoker, Sinusitis, bacterial, Cough, Facial pressure [facility] Office Visit On: 03-Aug-2017 14:53 Encounter Reason: Follow up ER - Reason for hospitalization note: (left side of face sowllen). Patient has been compliant with instructions. Current medication use: no side effects. The patient feels well with no complai End: 03-Aug-2017 15:53 nts, has good energy level and is sleeping well. Patient sleeps 7 hours per night. Impact of disease: no overall impact. Nutrition: balanced diet. Note for Follow up ER: blocked salvatory gland, state s face still feels mushy it was tight before. was rx 20mg of prednisone and clindamycin [id number] told in ER in [facility] Diagnosis: BMI 23.0-23.9, adult, Non-smoker, Salivary gland enlargement, Parotiditis [facility] Phone Encounter On: 04-Jun-2017 13:08 Encounter Diagnosis: Flu-like symptoms End: 04-Jun-2017 13:09 [facility] Office Visit On: 31-May-2017 15:23 Encounter Reason: Back Pain - This condition occurred without any known injury. The injury involved the upper back (rt side x 3 weeks andnow it hurts to breath and I am sleeping more).Encounter Diagnosis: Non-smoker, BMI 21.0-21.9, adult, Fatigue, End: 31-May-2017 16:09 Muscle spasm [facility] Office Visit On: 02-Mar-2017 15:22 Encounter Reason: Follow up acute care visit - The patient feeling better since last seen. Patient has been compliant with instructions. Current medication use: no side effects. The medical issues the patient is followin End: 02-Mar-2017 15:52 g up for include asthma and URI. Note for Follow up acute care visit: Had vocal cords like sausages, was given prednisone Dr. Carty and improved with 2 daysEncounter Diagnosis: Cough, Mild asthma, BMI 21.0-21.9, adult [facility] Office Visit On: 10-Feb-2017 11:05 Encounter Reason: Cold Symptoms - Symptoms include scratchy throat, sore throat, hoarseness, productive cough (green), facial pressure and headache. Onset was sudden 6 week(s) ago. There is no known event that preceded s End: 10-Feb-2017 12:30 ymptom onset. The symptoms occur constantly. The patient describes this as moderate in severity and worsening. Associated symptoms include shortness of breath, fatigue, fever and chills. Previous presen tation included scratchy throat, sore throat, hoarseness, productive cough, fever and chills. Note for Cold symptoms: works with [employer] worried about pleurisy, [ADDITIONAL REASON] Seizures - Note for Seizures: Had grand mal in Dec Encounter Diagnosis: BMI 21.0-21.9, adult, Sore throat, Flu-like symptoms, Cough, Mild asthma [facility] Office Visit On: 19-May-2016 15:34 Encounter Reason: Edema - Symptoms include edema. The edema involves the entire body (Right clavical area). Onset was 5 day(s) ago. The patient describes this as worsening. Associated symptoms include fever. Note for Ed End: 19-May-2016 16:00 johnny: Noticed rt clavicle enlarged, but had work up chest xray and echoEncounter Diagnosis: Non-smoker, BMI between 19-24,adult, Pain in clavicular joint [facility] Office Visit On: 06-Mar-2016 12:08 Encounter Reason: Injections - The medication the patient is here to receive is other (TB reading).[facility] End: 09-Mar-2016 8:48 Office Visit On: 04-Mar-2016 11:15 Encounter Reason: Injections - The medication the patient is here to receive is other (ppd).Encounter Diagnosis: Screening examination for pulmonary tuberculosis End: 04-Mar-2016 14:35 [facility] Office Visit On: 31-Jan-2016 6:42 Encounter Reason: Follow up ER - Reason for hospitalization note: (pleurisy). Patient has been compliant with instructions. Current medication use: no side effects. Note for Follow up ER: To [facility] on 01-27 with dayna End: 31-Jan-2016 9:07 st pain and SOB was diagnosed with plericy. Given Naprosyn Had chest xray neg, EKG no ischemic pattern compared to Jan 2015normal sed rate, torpoinin neg D dimer Neg, Discharge diagnosis atypical ches t pain, pleurisy. Still anemic Labs showing mildly low potassium Encounter Diagnosis: Pleurisy, Pain, flank, bilateral [facility] Office Visit On: 10-Oct-2015 9:15 Encounter Reason: Eye Pain - The onset of the eye pain has been sudden and has been occurring in a persistent pattern for hours (6 hrs). The course has been constant. The eye pain is described as severe. Symptoms are agg End: 10-Oct-2015 10:26 ravated by light. There has been associated change in vision, headache, other (upset stomach but not nausiatied) and other symptom(s) (loose stool).Encounter Diagnosis: Atypical migraine, Non-smoker, Eye pain, left [facility] Office Visit On: 30-Aug-2015 9:10 Encounter Reason: Migraine headache - The headache have been occurring in a persistent pattern for 3 months. The course has been recurrent. Location of headaches have been frontal.Encounter Diagnosis: Atypical migraine, Epilepsy End: 30-Aug-2015 9:58 [facility] Office Visit On: 09-Aug-2015 9:01 Encounter Reason: Sinusitis - Symptoms include nasal congestion, purulent rhinorrhea, cheek pressure, forehead pressure, cough and ear pressure. The symptoms occur constantly. The patient describes this as worsening. Ass End: 09-Aug-2015 9:48 ociated symptoms include sore throat. Previous presentation included nasal congestion, cheek discomfort, forehead pressure, cough and ear discomfort.Encounter Diagnosis: Vitamin D deficiency, Atypical migraine, Sinus pressure [facility] Office Visit On: 28-Jun-2015 8:33 Encounter Reason: Headache - No changes in management were made at the last visit. Symptoms include new onset headache (has a hx of migraines but these are like a ache feeling and throbbing), different headache features End: 28-Jun-2015 9:58 and nausea, while symptoms do not include vomiting.Encounter Diagnosis: Vitamin D deficiency, Bone pain, Fatigue, Weight loss, Migraine (346.80) [facility] Office Visit On: 31-May-2015 8:28 Encounter Reason: Fatigue - No changes in management were made at the last visit. Symptoms include fatigue and arthralgias (bone pain), while symptoms do not include poor sleep. Onset was gradual. The symptoms occur cons End: 31-May-2015 10:25 tantly. The patient describes this as moderate in severity., [ADDITIONAL REASON] Headache - No changes in management were made at the last visit. Symptoms includ e new onset headache (has a hx of migraines but these are like a ache feeling and throbbing), different headache features and nausea, while symptoms do not include vomiting. Encounter Diagnosis: Fatigue, Weight loss, Bone pain, Nausea, Migraine (346.80), Epilepsy [facility] Phone Encounter On: 29-May-2015 16:23 Encounter Diagnosis: Fatigue End: 29-May-2015 16:27 [facility] Office Visit On: 01-Mar-2015 8:07 Encounter Reason: Follow up hospital - Note for Follow up hospital: To ER on for chest pain and SOB CT neg, EKG nonspecific ST wave abnormality ??(inferolateral T-wave inversion , hmg 11.5 and potassium 3.0. neg End: 01-Mar-2015 10:19 card enzymes, HCG neg No PE on CT but mild pneumonitis rt lung. ?so she was admitted. Echo done showing midl mitral valve thickenign trivia other valves. Prior to admit on Feb 15 had diarrhea. Histor y epilepsy since 11 years old Last grand Mal Jun 02 2014 Followed Ne at [facility] neurologist Still with chest which started Feb 19 abrupt awaken, went to urgent care was told has joint pain, sent ho me on tylenol with out relief. Then 2 days later SOB but not improving. Got flu shot on 14. Not sent home with potassium given twice. Improving respiratory symptoms with asmanex, costochrondritis pain i mproving on zovolex now complete. Eating better. Will return to work on Wednesday Encounter Diagnosis: Mild asthma, Pleurisy [facility] Office Visit On: 26-Feb-2015 9:20 Encounter Reason: Follow up hospital - Note for Follow up hospital: To ER on for chest pain and SOB CT neg, EKG nonspecific ST wave abnormality ??(inferolateral T-wave inversion , hmg 11.5 and potassium 3.0. neg End: 26-Feb-2015 11:50 card enzymes, HCG neg No PE on CT but mild pneumonitis rt lung. ?so she was admitted. Echo done showing midl mitral valve thickenign trivia other valves. Prior to admit on Feb 15 had diarrhea. Histor y epilepsy since 11 years old Last grand Mal Jun 02 2014 Followed [place] at [facility] neurologist Still with chest which started Feb 19 abrupt awaken, went to urgent care was told has joint pain, sent ho me on tylenol with out relief. Then 2 days later SOB but not improving. Got flu shot on . Not sent home with potassium given twice. 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
--- OUTSIDE RECORDS SUMMARY | 2018-07-20 06:33 | XMS RPT_ITS | Continuity of Care Document ---
:1990 Author Organization [facility] Address [address] [place] [address] Phone Care Team Providers Name Role Phone Macy Akins CNP Unavailable Everton Khan MD Unavailable Macy Ramirez Unavailable Khurram Lawrence MD Unavailable Virgil Barnett [place] Unavailable Madai Dunbar Unavailable Unavailable Alethea Iqbal [...] MR and massage, sees Dr. Hua at [facility] who sees her for rudy worley and jun t to neurologist at [facility] but not optimal interactionhas used metaxalone without relief, was taking tylenol for headaches Status: Active Blurred vision, bilateral (H53.8, 368.8) Status: Active BMI 21.0-21.9, adult (Z68.21, V85.1) Status: Active BMI 22.0-22.9, adult (Z68.22, V85.1) Status: Active BMI 23.0-23.9, adult (Z68.23, V85.1) Status: Active BMI 23.0-23.9, adult (Z68.23, V85.1) Status: Active Bone pain (M89.8X9, 733.90) Status: Active Gisselle, oral (B37.0, 112.0) Status: Active Chest pain (R07.9, 786.50) Status: Active Cough (R05, 786.2) Comments: gone Status: Active Cough (R05, 786.2) Status: Active Dysphagia (R13.10, 787.20) Comments: period [...] Active Parotiditis (K11.20, 527.2) Comments: diagnosed in [place] ? recurrance Status: Active Salivary gland enlargement [...] Tablet Active bid x6 days (400-80 MG) Clotrimazole 10 MG Mouth/Throat Maribel 1 (one) Maribel 5x daily for 7 days Quantity: 35 {Maribel} Refills: 0 Ordered:08-Mar-2018 Macy Akins CNP, CNP, Kassie Start : 08-Mar-2018 Active LAMICTAL XR, 100MG (Oral Tablet Extended Release 24 Hour) 1 (one) Tablet ER 24HR two times daily for 0 days Quantity: 60 {Tablet} Refills: 0 Ordered:31-May-2015 Lina Candelaria DO Start : 31-May-2015 Active nextplanon Active PredniSONE [...] Ordered:24-Dec-2017 Madai Dunbar Start : 24-Dec-2017 Active Tessalon Perles 100 MG Oral Capsule 1 (one) Capsule tid prn for 0 days Quantity: 30 {Capsule} Refills: 0 Ordered:08-Mar-2018 Mable BANSAL Macy Barth ROLF Macy Hannon Start : 08-Mar-2018 Active ZONISAMIDE, 100MG (Oral Capsule) 3 (three) Capsule daily for 0 days Quantity: 90 {Capsule} Refills: 0 Ordered:28-May-2015 Soha Perdomo MD Start : 28-May-2015 Active Asmanex 7 Metered Doses 110 MCG/INH Inhalation Aerosol Powder Breath Activated 1 (one) Puff bid for 0 days Quantity: 2 {Inhalation} Refills: 0 Ordered:02-Mar-2017 SlaPrerna means LPN Start : 10-Feb-2017 End : 02-Mar-2017 Inactive Biaxin 500 MG Oral Tablet 1 (one) Tablet bid for 7 days Quantity: 14 {Tablet} Refills: 0 Ordered:24-Jan-2018 Mable ROLF Macy Barth ROLF Macy Hannon Start : 24-Jan-2018 End : 31-Jan-2018 Inactive BIAXIN XL PAC, 500MG (Oral Tablet Extended Release 24 Hour) 2 (two) Tablet ER 24HR daily for 10 days Quantity: 20 {Tablet} Refills: 0 Ordered:09-Aug-2015 Mable ROLF Macy Goldbergheather BANSAL Macy Hannon Start : 09-Aug-2015 End : 19-Aug-2015 Inactive Clindamycin HCl 150 MG Oral Capsule one tab q6hrs (150 MG) Inactive Ergocalciferol 92919 UNIT Oral Capsule 1 (one) Capsule Capsule twice week for 0 days Quantity: 24 {QS} Refills: 0 Ordered:30-Nov-2017 Kaylyn Juares Start : 30-Oct-2015 End : 30-Nov-2017 Inactive LORazepam 1 MG Oral Tablet 1 (one) Tablet daily as needed for 30 days Quantity: 30 {Tablet} Refills: 0 Ordered:31-Jan-2016 Biheather BANSAL Macy Goldbergheather BANSAL Macy Hannon Start : 31-Jan-2016 End : 01-Mar-2016 Inactive Comments:Medication taken as needed. Magnesium 200 MG Oral Tablet 2 (two) Tablet daily for 30 days Refills: 0 Ordered:31-Jan-2016 Oliviajeffreyheather BANSAL Macy Goldbergheather BANSAL Macy Hannon Start : 31-Jan-2016 End : 01-Mar-2016 Inactive Metaxalone 800 MG Oral Tablet 1 (one) Tablet tid prn for 0 days Quantity: 20 {Tablet} Refills: 0 Ordered:30-Nov-2017 Kaylyn Juares Start : 31-May-2017 End : 30-Nov-2017 Inactive ZORVOLEX, 18MG (Oral Capsule) 1 (one) Capsule tid for 2 days Quantity: 6 {Capsule} Refills: 0 Ordered:01-Mar-2015 Mable BANSAL, Macy Barth CNP, Kassie Start : 26-Feb-2015 End : 28-Feb-2015 Inactive ASMANEX 14 METERED DOSES, 220MCG/INH (Inhalation Aerosol Powder Breath Activated) 1 (one) Puff bid for 0 days Quantity: 1 {Inhaler} Refills: 3 Ordered:09-Aug-2015 Prerna De La Garza LPN Start : 01-Mar-2015 End : 09-Aug-2015 Discontinued KETOROLAC TROMETHAMINE, 10MG (Oral Tablet) 1 (one) Tablet q 6 hrs prn for 30 days Quantity: 20 {Tablet} Refills: 0 Ordered:01-Mar-2015 Prerna De La Garza LPN Start : 26-Feb-2015 End : 01-Mar-2015 Discontinued PROTONIX, 20MG (Oral Tablet Delayed Release) 1 (one) Tablet DR daily for 15 days Quantity: 15 {Tablet} Refills: 0 Ordered:01-Mar-2015 Prerna De La Garza LPN Start : 26-Feb-2015 End : 01-Mar-2015 Discontinued VALIUM, 5MG (Oral Tablet) 1 (one) Tablet x1 for 0 days Quantity: 1 {Tablet} Refills: 0 Ordered:09-Aug-2015 Prerna De La Garza LPN Start : 28-Jun-2015 End : 09-Aug-2015 Discontinued Comments:one VITAMIN D3 MAXIMUM STRENGTH, 5000UNIT (Oral Capsule) 1 (one) Capsule Capsule qd for 120 days Refills: 0 Ordered:30-Aug-2015 Prerna De La Garza LPN Start : 28-Jun-2015 End : 30-Aug-2015 Discontinued [...] and Lateral Result: Comments: See Note; NOTES: [facility] Imaging Services [address] [place] [address] Chest PA and Lateral MR#: [id number] Acct: [id number] Name: DOUG MORIN Rep #: [id number] : 1990 F 27 From: Dejuan Chase MD PCP: Macy Akins NP Status: REG CLI Study: Chest PA and Lateral Date of Exam: 02/15/18 Exam# [id number] Ordering Dr: Lizz Hu STUDY: X-RAY CHEST REASON FOR EXAM: Female, [...] Fax CC: Macy Akins NP; DASHA Hu Marketing Consultant: Signed 14-Feb-2018 Consultation Result: Comments: See Note; NOTES: [facility] Medical Records Department [address] [place] [address] Consultation 02/11/18 1401 MR#: [id number] Acct: [id number] Name: DOUG MORIN Christian ep #: [id number] : 1990 27 From: Ashly Morgan MD [...] seizure management. She was initially seen by [facility] and by Dr. Hua from [facility] for epilepsy in past, was intolerant [...] any radicular symptoms. She follows up jake thompson as outpatient for seizure management. She was initially seen by [facility] and by Dr. Hua from [facility] for epilepsy in the past, was [...] management. Code Visit Inpatient E AND M: 08292 Init Hosp L3 02/14/18 1117 <Electronically signed by Ashly Morgan MD> Date Ashly Morgan MD Cosigner Signature (if applicable): Date CC: Macy Akins NP Signed 11-Feb-2018 Emergency Department Summary Result: Comments: See Note; NOTES: [facility] Medical Records Department [address] [place] [address] Emergency Department Summary 02/11/18 1655 MR#: [id number] Acct: [id number] Name: DOUG MORIN Rep #: [id number] : 1990 27 From: Naomi Durbin DO [...] rebound or rigidity, no peritoneal signs. Neuro smaf-deophs-ljgo and heel peters testing within normal limits, [...] weakness-etiology uncertain] This note was generated with 004 Technologiesation software. It may contain incorrect words, spelling, [...] your Primary Care Provider. Call [facility] ([phone]) or re port to the closest Emergency Room. Call 911 if necessary. 02/11/18 1700 <Electronically signed by Naomi Durbin DO> Date Naomi Durbin DO Cosigner Signature (If Indicated): Date CC: Macy Akins NP 11-Feb-2018 Discharge Instruction Result: Comments: See Note; NOTES: [facility] Medical Records Department [address] [place] [address] Discharge Instruction 02/11/18 3208 MR#: [id number] Acct: [id number] Name: Christine MORIN Rep #: [id number] : 1990 27 From: Naomi Durbin DO PCP: Macy Akins NP Status: DEP ER ED Disposition - Plan for ED Patient: Chief Complaint: Weakness Instructions: ED Weakness UKO Refe rrals: Macy Akins, HEATER HELPER-C [Primary Care Provider] - Gerald Gilmore MD [STAFF PHYSICIAN] - 3-5 Days What to do if you have Problems For any increased pain, shortness of breath, bleeding, nausea or vo miting, chest pain, or any unexpected problems, contact your Primary Care Provider. Call [facility] ([phone]) or report to the closest Emergency Room. Call 911 if necessary. 02/11/18 1655 & amp;#60;Electronically signed by Naomi Durbin DO> Date Naomi Durbin DO Cosigner Signature (If Indicated): Date CC: Macy Akins NP 11-Feb-2018 Spine Cervical (Routine) Result: Comments: See Note; NOTES: [facility] Imaging Services [address] [place] [address] Spine Cervical (Routine) MR#: [id number] Acct: [id number] Name: DOUG MORIN Rep #: [id number] : 1990 F 27 From: Tessie Peacock MD PCP: Macy Akins NP Status: [facility] ER Study: Spine Cervical (Routine) Date of Exam: 02/11/18 Exam# [id number] Ordering Dr: Ashly Morgan MD [facility]: MRI CERVICAL SPINE WITHOUT CONTRAST REASON FOR [...] visualized soft tissue structures. O RDER #: [id number] MRI/Spine Cervical (Routine) IMPRESSION: Normal unenhanced MR examination of the cervical spine. Electronically Signed: Tessie Peacock MD at 16:08 EDT Tel , [facility] , CC: Macy Akins NP; Elio Morgan MD Marketing Consultant: Signed 11-Feb-2018 Brain W/WO Contrast Result: Comments: See Note; NOTES: [facility] Imaging Services [address] [place] [address] Brain W/WO Contrast MR#: [id number] Acct: [id number] Name: DOUG MORIN Parvez Rep #: [id number] : 1990 F 27 From: Tessie Peacock MD PCP: Macy Akins NP Status: REG RYANNE Study: Brain W/WO Contrast Date of Exam: 02/11/18 Exam# [id number] Ordering Dr: Naomi Durbin DO STUDY: MRI [...] CC: Macy Akins NP; Naomi Durbin DO Marketing Consultant: Signed 07-Jan-2018 Discharge Instruction Result: Comments: See Note; NOTES: [facility] Medical Records Department [address] [place] [address] Discharge Instruction 01/07/18 0641 MR#: [id number] Acct: [id number] Name: Christine MORIN Rep #: [id number] : 1990 27 From: Naomi Durbin DO [...] your Primary Care Provider. Call [facility] ([phone]) or report to the closest Emergency Room. Call 911 if necessary. 01/07/18 0642 <Electronically signed by Naomi Durbin DO> Date Naomi Durbin DO Cosigner Signature (If Indicated): Date CC: Macy Akins NP 07-Jan-2018 Emergency Department Summary Result: Comments: See Note; NOTES: [facility] Medical Records Department [address] [place] [address] Emergency Department Summary 01/07/18 0636 MR#: [id number] Acct: [id number] Name: DOUG MORIN Rep #: [id number] : 1990 27 From: Naomi Durbin DO [...] rebound or rigidity, no peritoneal signs. Neuro ydiw-ayifus-ufpm and heel peters testing within normal limits, [...] [Recurrent seizure] This note was generated with [employer] dictation software. It may contain incorrect words, [...] problems, contact your Primary Care Provider. Call [facility] ([phone]) or rep ort to the closest Emergency Room. Call 911 if necessary. 01/07/18 0640 <Electronically signed by Naomi Durbin DO> Date Naomi Durbin DO Cosigner Signature (If Indicated): Date CC: Macy Akins NP 07-Jan-2018 Brain/Head without Contrast Result: Comments: See Note; NOTES: [facility] Imaging Services [address] [place] [address] Brain/Head without Contrast MR#: [id number] Acct: [id number] Name: DOUG MORIN Rep #: [id number] : 1990 F 27 From: Reid Ortega MD PCP: Macy Akins NP Status: REG ER Study: Brain/Head without Contrast Date of Exam: 01/07/18 Exam# [id number] Ordering Dr: Naomi Durbin DO STUDY: CT [...] CC: Macy Akins NP; Naomi Durbin DO Marketing Consultant: Signed 23-Dec-2017 Emergency Department Summary Result: Comments: See Note; NOTES: [facility] Medical Records Department [address] [place] [address] Emergency Department Summary 12/23/17 1600 MR#: [id number] Acct: [id number] Name: DOUG MORIN Rep #: [id number] : 1990 27 From: Brain Del Castillo MD PCP: Macy Akins NP Status: REG ER - ER Visit Summary Date of Service: 12/23/17 Chief Complaint: Pelvic right patient seen by tor saldana at [facility] and sent to ER for further evaluation. [...] illness this past weekend. 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 It ma y contain incorrect words, spelling, and punctuation that were not noted in review of the chart prior to signing ED Disposition - Plan for ED Patient: Disposition: Home or Assisted Living Chief Compl aint: Chest Pain Instructions: ED Chest Pain Pleurisy Prescriptions: Naproxen [Naprosyn] 500 mg PO BID #10 tab Referrals: Macy Akins [Primary Care Provider] - 1 Week if not improving What to do if yo u have Problems For any increased pain, shortness of breath, bleeding, nausea or vomiting, chest pain, or any unexpected problems, contact your Primary Care Provider. Call [facility] Registry ) or report to the closest Emergency Room. Call 911 if necessary. 12/23/17 5983 <Electronically signed by Brain Del Castillo MD> Date Brain Del Castillo MD Cosigner Signature (If Indicated): Date CC: Macy Akins HEATER HELPER 11-Nov-2017 Emergency Department Summary Result: Comments: See Note; NOTES: [facility] Medical Records Department [address] [place] [address] Emergency Department Summary 11/10/17 0905 MR#: [id number] Acct: [id number] Name: DOUG MORIN Rep #: [id number] : 1990 27 From: Efrain Olguin MD PCP: Lina Candelaria DO Status: DEP ER - ER Visit Summary Date of Service: 11/10/17 Chief Complaint: Headache History of P resent Illness: The patient is a 27 F who sees Macy Hua, her neurologist at [facility] for seizures. She reports that she has [...] 03, 2017. This note was generated with [employer] dictation software. It may contain incorrect words, [...] Primary Care Provide r. Call [facility] ([phone]) or report to the closest Emergency Room. Call 911 if necessary. 11/11/17 1110 <Electronically signed by Efrain Olguin MD> Date ____ Efrain Olguin MD Cosigner Signature (If Indicated): Date CC: Lina Candelaria DO 10-Nov-2017 Brain/Head without Contrast Result: Comments: See Note; NOTES: [facility] Imaging Services [address] [place] [address] Brain/Head without Contrast MR#: [id number] Acct: [id number] Name: DOUG MORIN Rep #: [id number] : 1990 F 27 From: Mitchel Conrad MD PCP: Lina Candelaria DO Status: REG ER Study: Brain/Head without Contrast Date of Exam: 11/10/17 Exam# [id number] Ordering Dr: Efrain Olguin STUDY: CT BRAIN [...] Mitchel Conrad MD at 9:17 EDT Tel [phone], Service support , CC: Lina Candelaria DO; Efrain Olguin MD Marketing Consultant: Signed 03-Nov-2017 Emergency Department Summary Result: Comments: See Note; NOTES: [facility] Medical Records Department [address] [place] [address] Emergency Department Summary 11/03/17 1449 MR#: [id number] Acct: [id number] Name: DOUG MORIN Rep #: [id number] : 1990 27 From: Hill Banks MD [...] increased activity recently and actually traveled to [place] to [place]. She has been relatively fatigued recently, but [...] phosphorus unremarkable [facility] Course and Treatment: Patient presented for evaluation secondary to a seizure, patient's laboratory workup was found to be unremarkable. She had full return to baseline while in the [facility] department. Her mother was concerned because she was having some hand wringing. She was given Ativan and this seemed to improve. I had a discussion with the covering neurologist for the patient's neurologist at the [facility], they recommended outpatient follow-up. Lamictal level is still pending. At this time the patient is safe for discharge to follow-up with neurology as an outpatient. Disposition: Discharge Impression: 1. Breakthrough seizure This note was generated with [employer] dictation software. It may contain incorrect words, [...] your Primary Care Provider. Call [facility] ([phone]) or report to the closest Emergency Room. Call 911 if necessary. 11/03/17 1640 <Electronically signed by Hill Banks MD> Date Hill Banks MD Cosigner Signature (If Indicated): Date CC: Lina Candelaria DO 20-May-2016 Chest without Contrast Result: Comments: See Note; NOTES: [facility] Imaging Services [address] [place] [address] Marciana 4d Chest without Contrast MR#: [id number] Acct: [id number] Name: DOUG MORIN Rep #: [id number] : 1990 F 25 From: Mitchel Conrad MD PCP: Lina Candelaria DO Status: REG CLI Study: Chest without Contrast Date of Exam: 05/20/16 Exam# [id number] Ordering Dr: Indra Weinstein DO STUDY: CT [...] Mitchel Conrad MD at 15:26 EST Tel [phone], Service support [phone], CC: Indra Weinstein D.O.; Lina Candelaria DO Marketing Consultant: Signed 18-May-2016 Echocardiogram Complete Result: Comments: See Note; NOTES: [facility] Cardiovascular Services [address] [place] [address] Echo Complete 05/18/16 1400 MR#: [id number] Acct: [id number] Name: DOUG MORIN Rep #: [id number] : 1990 25 From: Compa Healy MD Attending Dr: Nisha Brandon HEATER HELPER Status: REG CLI Ordering Dr: Nisha Brandon HEATER HELPER-C Date: 05/18/16 Location: [facility] Sex: F C [...] Physician: Nisha Brandon Performed By: Zenia Miller [facility] 05/18/16 1503 Date Compa Healy MD CC: Nisha Candelaria DO Date Dictated: 05/18/16 1400 Date Transcribed: 05/18/16 1503 Marketing Consultant: Signed 15-May-2016 12 Lead Electrocardiogram Result: Comments: See Note; NOTES: [facility] Cardiovascular Services [address] [place] [address] 12 Lead EKG 011750 MR#: [id number] Acct: [id number] Name: DOUG MORIN Rep # : [id number] : 1990 From: Mark Quijano MD Attending Dr: Status: DEP ER Ordering Dr: Hill Banks MD Date: 05/13/16 [...] Normal ECG Confirmed by MARK NICHOLE ([id number]), deputy editor in chief FELIX CALLE ([id number]) on 05/15/2016 3:14:49 PM Referred By: LOUISE Confirmed By:MARK QUIJANO 05/15/16 1514 Date Mark Quijano MD CC: Lina Candelaria DO Date Dictated: 05/13/161750 Date Transcribed: 05/13/161750 Marketing Consultant: Signed 14-May-2016 Discharge Instruction Result: Comments: See Note; NOTES: [facility] Medical Records Department [address] [place] [address] Discharge Instruction 05/13/162043 MR#: [id number] Acct: [id number] Name: Christine MORIN Rep #: [id number] : 1990 From: Hill Banks MD PCP: Lina Candelaria [...] problems, contact your Primary Care Provider. Call [facility] ([phone]) or report to the closest Emergency Room. Call 911 if necessary. 05/14/16 0046 <Electronically signed by Hill Banks MD> Date Hill Banks MD Cosigner Signature (If Indicated): Date CC: Lina Candelaria DO 14-May-2016 Emergency Department Summary Result: Comments: See Note; NOTES: [facility] Medical Records Department [address] [place] [address] Emergency Department Summary MR#: [id number] Acct: [id number] Name: DOUG MORIN Rep #: [id number] : 1990 25 From: Hill Banks MD [...] The patient minesh t and saw a clinical social work therapist for this. They felt that it potentially [...] pain. Efrain Banks M.D. T: NTS JOB: [id number] 05/14/16 0046 <Electronically signed by Hill Banks MD> Date Hill Banks MD Cosigner Sign ature (If Indicated): Date CC: Lina Candelaria DO Date Dictated: 05/14/1611 Date Transcribed: 05/14/1611 Marketing Consultant: Signed 13-May-2016 Chest PA and Lateral Result: Comments: See Note; NOTES: [facility] Imaging Services [address] [place] [address] Verdana 4d Chest PA and Lateral MR#: [id number] Acct: [id number] Name: DOUG MORIN Rep #: [id number] : 1990 F 25 From: Olvin Rosenthal PCP: Lina Candelaria DO Status: REG ER Study: Chest PA and Lateral Date of Exam: 05/13/16 Exam# [id number] Ordering Dr: Hill Banks MD STUDY: X-RAY [...] at 19:07 EST Tel , Service support [phone], CC: Lina Candelaria DO; Hill Banks Marketing Consultant: Signed 11-Feb-2016 12 Lead Electrocardiogram Result: Comments: See Note; NOTES: [facility] Cardiovascular Services [address] [place] [address] 12 Lead EKG 02/09/16 1045 MR#: [id number] Acct: [id number] Name: DOUG MORIN Rep #: [id number] : 1990 25 From: Compa Healy MD [...] ECG Confirmed by COMPA HEALY MD ([id number]), deputy editor in chief FELIX CALLE ([id number]) on 02/11/2016 2:23:30 PM Referred By: Confirmed By:COMPA HEALY MD 02/11/16 1423 Date Compa Healy MD CC: Lina Candelaria DO Date Dictated: 02/09/161044 Date Transcribed: 02/09/161044 Marketing Consultant: Signed 09-Feb-2016 Emergency Department Summary Result: Comments: See Note; NOTES: [facility] Medical Records Department [address] [place] [address] Emergency Department Summary MR#: [id number] Acct: [id number] Name: STEVEN MORIN Rep #: [id number] : 1990 25 From: Mark Lopez DO PCP: Lina Candelaria DO Status: DEP ER DATE OF SERVICE: 02/09/2016 CHIEF COMPLAINT: [...] spasms. Mark Lopez DO T: NTS JOB: [id number] 02/09/16 1542 <Electronically signed by Mark Lopez DO> Date Mark Dexterignryanne Signature (If Indicated): Date CC: Lina Candelaria DO Date Dict ated: 02/09/161210 Date Transcribed: 02/09/161210 Marketing Consultant: Signed 09-Feb-2016 Discharge Instruction Result: Comments: See Note; NOTES: [facility] Medical Records Department [address] [place] [address] Discharge Instruction 02/09/16 1208 MR#: [id number] Acct: [id number] Name: DOUG MORIN Rep #: [id number] : 1990 25 From: Mark Lopez DO [...] problems, contact your doctor. Call [facility] ([phone]) or report to the [facility] Emergency Room. Call 911 if necessary. 02/09/16 1209 <Electronically signed by Mark Lopez DO> Date Mark Oliveira S ignature (If Indicated): Date CC: Lina Candelaria DO 09-Feb-2016 Chest PA and Lateral Result: Comments: See Note; NOTES: [facility] Imaging Services [address] [place] [address] Verdana 4d Chest PA and Lateral MR#: [id number] Acct: [id number] Name: ROBERT MORINYNE Rep # : [id number] : 1990 F 25 From: Virginia Hankins MD PCP: Lina Candelaria DO Status: REG ER Study: Chest PA and Lateral Date of Exam: 02/09/16 Exam# [id number] Ordering Dr: Mark Lopez DO STUD Y: [...] MD at 12:03 EDT , Service support [phone], CC: Mark Lopez DO; Lina Candelaria DO Marketing Consultant: Signed 31-Jan-2016 Emergency Department Summary Result: Comments: See Note; NOTES: [facility] Medical Records Department [address] [place] [address] Emergency Department Summary MR#: [id number] Acct: [id number] Name: STEVEN MORIN Rep #: [id number] : 1990 25 From: Hill Tavera MD PCP: Care Physician,No Primary Status: [facility] ER DATE OF SERVICE: 01/28/2016 METHOD OF ARRIVAL: By private car. CHIEF COMPLAINT: Chest pain. PRIMARY CARE PHYSICIAN: Serina rivera DON HISTORY: A 25-year-old female, who reports a history of pleurisy and possible myocarditis, this was about a year ago. She also has seizure history. The pat riana comes in with chest pain that started [...] C: Soha Perdomo MD T: NTS JOB: [id number] 01/31/16 1507 <Electronically signed by Hill Tavera MD> Date ____ Hill Tavera MD Cosigner Signature (If Indicated): Date CC: Soha Perdomo MD; No Primary Care Physician Date Dictated: 01/28/16 1205 Date Transcribed: 01/28/161204 Marketing Consultant: Signed 12-Nov-2015 Emergency Department Summary Result: Comments: See Note; NOTES: [facility] Medical Records Department [address] [place] [address] Emergency Department Summary MR#: [id number] Acct: [id number] Name: DOUG MORIN Rep #: [id number] : 1990 25 From: Everardo Espinoza MD PCP: Lina Candelaria DO Status: [facility] ER DATE OF SERVICE: 11/11/2015 CHIEF COMPLAINT: [...] Everardo Jones C: Lina Candelaria DO T: NTS JOB: [id number] 11/12/15 0115 <Electronically signed by Everardo Espinoza MD> Date Everardo Espinoza MD Cosigner Signature (If Indicated): Date CC: Lina Candelaria DO Date Dictated: 11/11/151806 Date Tr anscribed: 11/11/151806 Marketing Consultant: Signed 11-Nov-2015 Discharge Instruction Result: Comments: See Note; NOTES: [facility] Medical Records Department [address] [place] [address] Discharge Instruction 11/11/15 1728 MR#: [id number] Acct: [id number] Name: DOUG MORIN Rep #: [id number] : 1990 25 From: Everardo Espinoza MD PCP: Lina Candelaria DO Status: REG ER ED Disposition - Plan for ED Patient: Disposition: Home or Assisted Arely mary lou Chief Complaint: Numb/Ting Instructions: ED Concussion, No [...] ems, contact your doctor. Call [facility] ([phone]) or report to the closest Emergency Room. Call 911 if necessary. 11/11/15 1730 <Electronically signed by Everardo Espinoza MD&amp ;#62; Date Everardo Espinoza MD Cosigner Signature (If Indicated): Date CC: Lina Candelaria DO 11-Nov-2015 Brain/Head without Contrast Result: Comments: See Note; NOTES: [facility] Services [address] [place] [address] Verdana 4d Brain/Head without Contrast MR#: [id number] Acct: [id number] Name: DOUG MORIN Rep #: [id number] : 1990 F 25 From: Everton Wolff MD PCP: Lina Candelaria DO Status: REG ER Study: Brain/Head without Contrast Date of Exam: 11/11/15 Exam# [id number] Ordering Dr: Everardo Espinoza MD STUDY: CT [...] MD at 17:00 EDT , Service support [phone], CC: EVERARDO ESPINOZA MD; Lina Candelaira DO Marketing Consultant: Signed 21-Jun-2015 Brain without Contrast Result: Comments: See Note; NOTES: [facility] Services [address] [place] [address] Verdana 4d Brain without Contrast MR#: [id number] Acct: [id number] Name: DOUG JONES Rep #: [id number] : 1990 F 24 From: Khadar Miller MD PCP: Lina Candelaria DO Status: REG CLI Study: Brain without Contrast Date of Exam: 06/21/15 Exam# [id number] Ordering Dr: Audrey Candelaria DO STUDY: MRI [...] MD at 15:50 EST , Service support [phone], CC: Lina Candelaria DO Marketing Consultant: Signed 26-Feb-2015 Spirometry (56479) Comments: mild airway obstruction Result: 26-Feb-2015 ELECTROCARDIOGRAM, COMPLETE (ECG) (65453) Result: [MEASUREMENTS ANALYSIS] Date of Test: 02/26/2015 11:18:05; Heart Rate: 77; [place] Interval: 182; QRS: 100; QT Interval: 378; Corrected QT Interval (QTc): 407; P Wave Revere: 56; QRS Wave Revere: 44; T Wave Revere : 34; Blood Pressure: 104/66 [ECG DIAGNOSTIC STATEMENTS] Date of Test: 02/26/2015 11:18:05; Summary: Sinus Rhythm WITHIN NORMAL LIMITS Vital Signs Date Test Result Details 08-Mar-20189:56 Temperature 98.1 f Comments: Method: Temporal Pulse 96 /min Comments: Pattern: Regular Respiration Rate 18 /min Comments: Pattern: Unlabored O2 SAT 98 % Comments: Room air BP Systolic 110 mm[Hg] Comments: Patient Position: Sitting; Cuff Location: Left Arm; Cuff Size: Standard BP Diastolic 73 mm[Hg] Comments: Patient Position: Sitting; Cuff Location: Left Arm; Cuff Size: Standard Weight 130 lb Height 64 in Body Mass Index Calculated 22.31 kg/m2 Body Surface Area Calculated 1.63 m2 :16 Temperature 97.5 f Comments: Method: Temporal Pulse [...] kg/m2 Body Surface Area Calculated 1.63 m2 :17 Temperature 98.3 f Comments: Method: Temporal Pulse [...] kg/m2 Body Surface Area Calculated 1.63 m2 11-Fty-205179:29 Temperature 98.2 f Comments: Method: Temporal Pulse [...] kg/m2 Body Surface Area Calculated 1.67 m2 : Temperature 97.8 f Pulse 91 /min Comments: [...] kg/m2 Body Surface Area Calculated 1.57 m2 99-Zqv-098799:25 Temperature 98 f Pulse 82 /min Comments: [...] m2 Results Date Description Value Details :03 [facility] AB Modulating Comments: [facility] (refer to report for specific site)refer to report for address and phone number [facility] [place] [address] 56 % (Abnormal) Range: 0-20 Comments: Negative: <21 Equivocal: 21 - 25 Positive: >25 The assay is linear between values of 12 and 64. Those <12 and &gt ;64 are reported as such. No single value for ACR-modulating antibody should be used as a sole basis for diagnosis or response to therapy.Performed at: [address] [id number] Director: Oscar Lynn MD, Phone: [phone] 89-Wfa-126747:03 [facility] Retail Sales Specialist AB, Blocking Comments: [facility] (refer to report for specific site)refer to report for address and phone number [facility] REC 36220 45 % (Abnormal) Range: 0-25 Comments: Results verified by repeat testing Negative: 0 - 25 Borderline: 26 - 30 Positive: >30Resul ts for this test are for research purposesonly by the assay's fire services plumber. The performancecharacteristics of this product have not beenestablished. Results should not be used as adiagnostic procedure without confirmation of thediagnosis by another medically establisheddiagnostic product or procedure. 86-Tkr-052990:03 Basic Metabolic Profile (BMP) Comments: [facility] [address] [place], [place], [id number] GAP 9 (Normal) Range: 5-15 CO2 19.0 [...] A.D.A. criteria.Please note revised GLUCOSE reference range loscijxjg38/02/2018. 55-Ozg-339437:03 CBC W/Diff, Automated Comments: [facility] [address] [place], [place], [address] HYPERSEG RARE (Normal) Absolute Lymph 0.48 {X10_3/ul} [...] 4.2-5.4 WBC 9.3 K/mm3 (Normal) Range: 4.4-11.0 85-Yxx-154414:48 URINE SARAH BETH CULTURE (TEN COL Comments: PATIENT NOT FASTINGPERFORMED BY: [facility] 1spire [facility] [id number] COUNT) ([id number]) Result 1 MUG (Normal) Comments: Mixed urogenital flora1,000 Colonies/mL Urine Culture,Comprehensive Final report (Normal) 96-Cmt-112377:48 TSH (93986) Comments: PATIENT NOT FASTINGPERFORMED BY: [facility] Guag[address] [facility] [id number] TSH 2.510 {uIU/mL} (Normal) Range: 0.450-4.500 78-Twa-542196:48 CBC, Platelets & Auto Comments: PATIENT NOT FASTINGPERFORMED BY: [facility] Tdxbcg5733 [facility] [id number] Information: SRC:UC Diff (69665) Immature Grans (Abs) 0.0 {x10E3/uL} (Normal) Range: [...] 3.77-5.28 WBC 7.4 {x10E3/uL} (Normal) Range: 3.4-10.8 38-Fnw-621923:24 Urinalysis, Office (63125) UA - LEUKOCYTE ESTERASE Negative (Normal) UA - NITRITE Negative (Normal) URINE UROBILINGN TEN TIMED Normal mg/dL (Normal) UA - PROTEIN Negative mg/dL (Normal) UA - BLOOD Hemolyzed Large (Normal) UA - SPECIFIC GRAVITY 1.030 (Abnormal) UA - KETONES Negative mg/dL (Normal) UA - BILIRUBIN Small (Normal) UA - GLUCOSE Negative (Normal) 07-Jan-20184:50 Urinalysis, Complete Comments: How was Urine Obtained? [facility] [address] [place], [place], [phone] MUCUS, URINE 1+ {/hpf} (Normal) BACTERIA 1+ [...] (Normal) CLARITY Cloudy (Normal) COLOR Yellow (Normal) 07-Jan-20184:20 CBC W/Diff, Automated Comments: [facility] [address] [place], [place], [address] Absolute Lymph 2.28 {X10_3/ul} (Normal) Range: 0.83-4.51 [...] Range: 4.4-11.0 07-Jan-20184:20 Comprehensive Metabolic Profil Comments: [facility] [address] [place], [place], [address] GAP 9 (Normal) Range: 5-15 CO2 21.0 [...] Comments: Please note revised GLUCOSE reference range /02/2018. 07-Jan-20184:20 ,Serum,hCG Quali. Comments: [facility] [address] [place], [place], [phone] HCGSQUAL NEGATIVE {Negative} (Normal) Range: 0-9 Nonpreg HCG Qual triggr < 1 m[iU]/mL (Normal) 20-Ggf-37578:25 ,Serum,hCG Quali. Comments: [facility] [address] [place], [address] HCGSQUAL NEGATIVE {Negative} (Normal) Range: 0-9 Nonpreg HCG Qual triggr < 1 m[iU]/mL (Normal) 5-Pqp-206703:10 Basic Metabolic Profile (BMP) Comments: [facility] [address] [place], [phone] GAP 9 (Normal) Range: 5-15 CO2 22.0 [...] Comments: Please note revised GLUCOSE reference range efocjfrfm94/02/2018. 4-Nve-651994:10 CBC W/Diff, Automated Comments: [facility] [address] [place], [address] Absolute Lymph 1.51 {X10_3/ul} (Normal) Range: 0.83-4.51 [...] 4.2-5.4 WBC 6.7 K/mm3 (Normal) Range: 4.4-11.0 2-Vff-190002:10 Lamotrigine (Lamictal) Level Comments: [facility] (refer to report for specific site)refer to report for address and phone number LAMOTRIG [id number] 4.5 ug/mL (Normal) Range: 2.0-20.0 Comments: Detection Limit = 1.0Performed at: [facility] [id number] Director: Oscar Lynn MD, Phone: [phone] 5-Aov-613038:10 Magnesium Comments: [facility] [address] [place], [address] MG 1.9 mg/dL (Normal) Range: 1.6-2.6 8-Ewa-569747:10 Phosphorus Comments: [facility] [address] [place], [address] PHOS 2.7 mg/dL (Normal) Range: 2.5-4.9 5-Msb-161218:50 Human Herpsvirus 6 (HHV-6), Comments: PATIENT NOT FASTINGPERFORMED BY: [address] [id number] img (53291) Human Herpes Virus Type <1:10 (Normal) Comments: This test was developed and its performance characteristicsdetermined by [employer]. It has not been cleared or approvedby the Food and Drug Administration. 6 IgM :50 Human Herpsvirus 6 (HHV-6) Comments: PATIENT NOT FASTINGPERFORMED BY: [address] [id number] Antibodies, img (39876) HHV 6 IgG Antibodies 6.10 {index} Comments: Negative <0.76 Equivocal 0.76 - 0.99 Positive >0.99 Results for this test (Abnormal) are for research purposes only by the assay's fire services plumber. The performance characteristics of this product have not been established. Results should not be used as a diagnostic procedure without confirmation of the diagnosis by another medically established diagnostic product or procedure. Hemoglobin A1c 4.8 % (Normal) Comments: PATIENT NOT FASTINGPERFORMED BY: [facility]6[address] [facility] [id number] 6:15 Range: 4.8-5.6 Comments: . Pre-diabetes: 5.7 - 6.4 Diabetes: >6.4 Glycemic control for adults with diabetes: <7.0 Written Authorization WAR (Normal) Comments: PATIENT NOT FASTINGPERFORMED BY: [facility] [id number] 6:15 Comments: Written Authorization Received.Authorization received from HIRA JAIMES RN [id number] by Skylar Calle 39-Tgj-808375:15 CMV IGM ANTBDY (24863) Comments: PATIENT NOT FASTINGPERFORMED BY: [facility] [id number] Cytomegalovirus (CMV) Ab, IgM <30.0 AU/mL (Normal) Range: 0.0-29.9 Comments: Negative <30.0 Equivocal 30.0 - 34.9 Positive >34.9 A positive result is generally indicative of acute infection, reactivation or persistent IgM production. 68-Spu-047063:15 EBV Panel (64965) Comments: PATIENT NOT FASTINGPERFORMED BY: [facility] CenterDazmua3272 [facility] [id number] Interpretation: SPRCS (Normal) Comments: EBV Interpretation Chart [...] <36.0 Equivocal 36.0 - 43.9 Positive >43.9 77-Bxm-091230:15 CALCIFIDIOL (75540) VIT D 25 Comments: PATIENT NOT FASTINGPERFORMED BY: [facility] Pziehu1856 [facility] [id number] Vitamin D, 25-Hydroxy 19.4 ng/mL (Abnormal) Range: 30.0-100.0 Comments: Vitamin D deficiency has been defined by the [place] ofMedicine and an Endocrine Society practice guideline as alevel of serum 25-OH vitamin D less than 20 ng/mL (1,2).The Endocrine Society went on to further define vitamin Dinsufficiency as a level between 21 and 29 ng/mL (2).1. IOM ([place] of Medicine). 2010. Dietary reference intakes for calcium and D. [place]: The National Academies Press.2. Solange MF, Maximiliano GARCIA, Earle ALMARAZ, et al. Evaluation, treatment, and prevention of vitamin D deficiency: an Endocrine Society clinical practice guideline. JCEM. 2010; 96(7):1911-30. 25-Mfa-191700:15 Folate (30695) Comments: PATIENT NOT FASTINGPERFORMED BY: CB [facility] Afnbiw3[address] Steven RoadDublin [place] [id number] Folate (Folic Acid), Serum 5.9 ng/mL (Normal) Comments: A serum folate concentration of less than 3.1 ng/mL isconsidered to represent clinical deficiency. 18-Vqy-789405:15 VITAMIN B-12 (CYANOCOBALAMIN) Comments: PATIENT NOT FASTINGPERFORMED BY: CB [facility] T[address]dvk[address] Steven RoadDublin [place] [id number] (21078) Vitamin B12 556 pg/mL (Normal) Range: 232-1245 87-Rsk-889557:15 TSH (48688) Comments: PATIENT NOT FASTINGPERFORMED BY: CB [facility] [address]vusys[address] Steven RoadDublin [place] [id number] TSH 2.320 {uIU/mL} (Normal) Range: 0.450-4.500 70-Chd-781926:15 SED RATE ERYTHROCYTE (40915) Comments: PATIENT NOT FASTINGPERFORMED BY: CB [facility] Irhueg46[address] Steven RoadDublin [place] [id number] Sedimentation Rate-Westergren 13 mm/h (Normal) Range: 0-32 16-Pel-018865:15 RHEUMATOID FACTOR-QUANT (25529) Comments: PATIENT NOT FASTINGPERFORMED BY: CB [facility] Abirbq9[address] RoadDublin [place] [id number] RA Latex Turbid. <10.0 {IU/mL} (Normal) Range: 0.0-13.9 94-Dnp-975720:15 METABOLIC PANEL, COMPREHENSIVE Comments: PATIENT NOT FASTINGPERFORMED BY: CB [facility] [address]ve[address] Road[address] [place] [id number] (80481) ALT (SGPT) 13 [iU]/L (Normal) Range: 0-32 [...] Glucose, Serum 109 mg/dL (Abnormal) Range: 65-99 76-Daq-520054:15 C-REACTIVE PROTEIN (57070) Comments: PATIENT NOT FASTINGPERFORMED BY: [facility] CenterZsbapi2048 [facility] [id number] C-Reactive Protein, Quant <0.3 mg/L (Normal) Range: 0.0-4.9 57-Kpx-399494:15 CBC (AUTO) (84157) Comments: PATIENT NOT FASTINGPERFORMED BY: [facility] CenterPqacxj8440 [facility] [id number] Platelets 310 {x10E3/uL} (Normal) Range: 150-379 RDW 14.5 % (Normal) Range: 12.3-15.4 MCHC 33.3 g/dL (Normal) Range: 31.5-35.7 MCH 26.9 pg (Normal) Range: 26.6-33.0 MCV 81 fL (Normal) Range: 79-97 Hematocrit 36.3 % (Normal) Range: 34.0-46.6 Hemoglobin 12.1 g/dL (Normal) Range: 11.1-15.9 RBC 4.50 {x10E6/uL} (Normal) Range: 3.77-5.28 WBC 8.5 {x10E3/uL} (Normal) Range: 3.4-10.8 31-Agu-956588:15 RASHAD (ANTINUCLEAR ANTIBODY) Comments: PATIENT NOT FASTINGPERFORMED BY: JORGE PayAlliesRehabilitation Hospital of Southern New MexicoAtduhy3999 [facility] [id number] (20055) RASHAD Direct Negative (Normal) 8-Qtz-159138:35 PPD (77527) Comments: Lot:[id number]:08/17Dose:0.1Route:idSite:r Kvng By:LOCO signed SKIN TEST INTRADERMAL TB 0 mm (Normal) 69-Rnf-74627:39 Urinalysis, Office (67573) UA - LEUKOCYTE ESTERASE Negative (Normal) UA - NITRITE Negative (Normal) URINE UROBILINGN TEN TIMED Normal mg/dL (Normal) UA - PROTEIN Negative mg/dL (Normal) UA - PH 8.5 (Normal) UA - BLOOD Negative (Normal) UA - SPECIFIC GRAVITY 1.020 (Normal) UA - KETONES Negative mg/dL (Normal) UA - BILIRUBIN Negative (Normal) UA - GLUCOSE Negative (Normal) 32-Bxu-897222:06 Bedside Glucose Comments: [facility] LaboratoryPoint of [address] [place] [address] BEDSIDE GLU 99 mg/dL (Normal) Range: 70-110 Comments: Policy and Physicians Orders followedMANAGEMENT OF PATIENT CARE PER NURSING PROTOCOL 22-Yyj-57182:54 Protein Electro, Random Urine Comments: PERFORMED BY: [facility] CenterGrupka3920 [facility] [id number] Please note: SPRCS (Normal) Comments: Protein electrophoresis scan will follow via computer, mail, orcourier delivery. M-Nasim, % Not Observed % (Normal) Gamma Globulin, U 10.5 % (Normal) Beta Globulin, U 18.5 % (Normal) Vgqam-0-Pegxwvpn, U 8.4 % (Normal) Gywlr-1-Mmkqhezd, U 3.3 % (Normal) Albumin, U 59.4 % (Normal) Protein,Total,Urine 15.3 mg/dL (Abnormal) Range: 0.0-15.0 :54 Protein Electro.,S Comments: PERFORMED BY: [facility] [id number] Please note: SPRCS (Normal) Comments: Protein electrophoresis scan will follow via computer, mail, orcourier delivery. A/G Ratio 1.8 (Normal) Range: 0.7-2.0 Globulin, Total 2.6 g/dL (Normal) Range: 2.0-4.5 M-Nasim Not Observed g/dL (Normal) Gamma Globulin 0.9 g/dL (Normal) Range: 0.5-1.6 Beta Globulin 0.9 g/dL (Normal) Range: 0.6-1.3 Copji-7-Epvbbadg 0.6 g/dL (Normal) Range: 0.4-1.2 Djfsk-3-Upquuduz 0.2 g/dL (Normal) Range: 0.1-0.4 Albumin 4.7 [...] month Indication: Non-smoker Atypical migraine : Reviewed Hand Tool Lapper Letter Indication: Atypical migraine Atypical chest pain [...] Reviewed Lab Indication: Fatigue Epilepsy : Reviewed Hand Tool Lapper Letter Indication: Epilepsy Atypical migraine : Follow up in 3 weeks Indication: Atypical migraine Pleurisy : Follow up in 6 weeks Apr 12 with [facility] for spirometry Indication: Pleurisy Pleurisy : Follow up on Wednesday with [facility] Indication: Pleurisy Planned Observations Sputum Culture (90511)Indication: Cough On: 4-Dzm-173974:49 Request QuantiFERON-TB Gold Plus (QFT-Plus) (67737)Indication: Salivary gland enlargement On: :35 Request Lyme Disease Antibody W/ Reflex (73458)Indication: Salivary gland enlargement On: :34 Request CBC, PLATELETS & AUT DIFF (02752)Indication: Atypical chest pain On: 95-Jrn-181254:45 Request C-REACT PROT HIGH SENS(hsCRP) (73175)Indication: Atypical chest pain On: :44 Request ESR-F (SED RATE ERYTHROCYTE - FEMALE) (96669)Indication: Atypical chest pain On: :44 Request RHEUMATOID FACTOR-QUANT (84382)Indication: Atypical chest pain On: :44 Request RASHAD (ANTINUCLEAR ANTIBODY) (53878)Indication: Atypical chest pain On: :43 Request METABOLIC PANEL, COMPREHENSIVE (20279)Indication: Blurred vision, bilateral On: 40-Gww-219449:36 Request Rapid Flu (44034 x 2)Indication: Flu-like symptoms On: 81-Dpr-290262:11 Request Rapid Strep Test, Office (38912)Indication: Sore throat On: 19-Gqo-784119:10 Request RHEUMATOID FACTOR-QUANT (97937) test code 636104Hvfxzhzlse: Pain in clavicular joint On: :59 Request Systemic Lupus Profile (63315)Indication: Pain in clavicular joint On: 75-Jkq-172235:59 Request Metabolic Panel, Comprehensive (63217)Indication: Pain in clavicular joint On: :58 Request TSH (82069)Indication: Pain in clavicular joint On: 58-Xdf-011866:58 Request CBC, Platelets & Auto Diff (49739)Indication: Pain in clavicular joint On: 62-Yjr-846163:58 Request MAGNESIUM (49490)Indication: Atypical migraine On: :54 Request CALCIFIDIOL (26198) VIT D 25Indication: Vitamin D deficiency On: :44 Request Serum Protein Electrophoresis (SPEP) (59965)Indication: Bone pain On: :38 Request Urine Protein Electrophoresis (UPEP) (95842)Indication: Bone pain On: 57-Dtd-35091:38 Request CALCIFIDIOL (88811) VIT D 25Indication: Fatigue On: : Request Folate (24811)Indication: Fatigue On: Request VITAMIN B-12 (CYANOCOBALAMIN) (38631)Indication: Fatigue On: : Request TSH (55385)Indication: Fatigue On: Request SED RATE ERYTHROCYTE (05680)Indication: Fatigue On: Request RHEUMATOID FACTOR-QUANT (02420)Indication: Fatigue On: : Request METABOLIC PANEL, COMPREHENSIVE (50805)Indication: Fatigue On: Request C-REACTIVE PROTEIN (43474)Indication: Fatigue On: Request CBC (AUTO) (02373)Indication: Fatigue On: Request RASHAD (ANTINUCLEAR ANTIBODY) (36109)Indication: Fatigue On: Request Planned Procedures Aerosol Treatment (90079)By: Mable On: 08-Mar-2018 Intent Macy BANSAL CNP, Mary E CT - Neck (IV Contrast Needed)By: On: 07-Feb-2018 Intent Macy Akins CNP, CNP, Mary E Comments: soft tissue and lymph neck Spirometry (94026)By: Mable BANSAL, On: 24-Dec-2017 Intent Macy Hughes CNP Comments: (#2 showing Spirometry (95213)By: Mable BANSAL, On: 24-Dec-2017 Intent Macy Hughes CNP Comments: #1 shwoing mild airway obstruction, aerosol then 2nd spirometry Aerosol Treatment (66529)By: Mable On: 24-Dec-2017 Intent Macy BANSAL CNP, Mary E CT SCAN OF HEAD OR BRAIN WITH AND On: 23-Dec-2017 Intent WITHOUT CONTRAST (62108)By: Mor Comments: STAT R/O Visual problems, aneursym Kaylyn COMPUTED TOMOGRAPHY ANGIOGRAPHY OF On: 23-Dec-2017 Intent CHEST FOR PULMONARY THROMBOEMBOLISM Comments: STAT R/O PE, Aneursym/Dissection (28918)By: Kaylyn Juares ELECTROCARDIOGRAM, COMPLETE (ECG) On: 23-Dec-2017 Intent (48230)By: Kaylyn Juares Comments: Normal sinus rhythm-HR 69 Solu -Medrol Injection, 125 mg On: 10-Feb-2017 Intent (J2930)By: Macy Akins CNP, CNP, Mary E Spirometry (49556)By: Mable BANSAL, On: 10-Feb-2017 Intent Macy Hughes CNP Comments: moderate airway obstruction Aerosol Treatment (88364)By: Frederic On: 10-Feb-2017 Intent Prerna HENRY Radiology - Femur - BilateralBy: On: 31-May-2015 Intent Lina Candelaria DO Radiology - Humerus - BilateralBy: On: 31-May-2015 Intent Lina Candelaria DO Radiology - Forearm - BilateralBy: On: 31-May-2015 Intent Lina Candelaria DO MRI BRAIN W/O CONTRAST (00556)By: On: 31-May-2015 Intent Lina Candelaria DO Planned Medications INJECTION, METHYLPREDNISOLONE SODIUM SUCCINATE, UP TO 125 MG Ordered: 10-Feb-2017 Pending Macy Akins CNP, CNP, Mary E Instructions Name Dates Details Non-smoker : How [...] Pleurisy : Patient Instructions Indication: Pleurisy Encounters Office Visit On: 08-Mar-2018 9:52 Encounter Reason: Cough - Symptoms include cough and pleuritic chest pain. The cough is described as dry and moist. Cough onset was 4 day(s) ago. Note for Cough: Has wet and dry cough, cough is wet.Encounter Diagnosis: BMI 22.0-22.9, adult, End: 08-Mar-2018 10:55 Non-smoker, Gisselle, oral, Cough [facility] Annotation/Addendum On: 18-Feb-2018 8:12 Encounter Diagnosis: Salivary gland enlargement End: 18-Feb-2018 15:37 [facility] Office Visit On: 11-Feb-2018 11:11 Encounter Reason: Speech Difficulty - Note for Speech difficulty: slurred speech at work today and difficulty speaking. This has ocured multiple times, has apt to see neurololgist Dr. Gilmore can see her on Wednesday. End: 11-Feb-2018 11:[address] Carloz Cheney at [facility] who put her on bactrim and prednisone., [...] Jan 03, by Louise RODAS. Pt called insurance producer to see if side effect of nexplanton, [...] Jan 03, by Louise RODAS. Pt called insurance producer to see if side e ffect of [...] to ER after seen in outpt by HEATER HELPER CHICHI, with feeling End: 24-Dec-2017 11:46 of [...] was rx 20mg of prednisone and clindamycin [id number] [facility] [place] [facility] Diagnosis: BMI 23.0-23.9, adult, Non-smoker, Salivary gland [...] chills. Note for Cold symptoms: works with [employer] worried about pleurisy, [ADDITIONAL REASON] Seizures - [...] effects. Note for Follow up ER: To [facility] on 01-27 with dayna End: 31-Jan-2016 [...] epilepsy since 11 years old Last grand Jun 02 2014 Followed Nehr at [facility] neurologist Still with chest which started [...] Mal Jun 02 2014 Followed Nehr at [facility] neurologist Still with chest which started Feb 19 abrupt awaken, went to urgent care was told has joint pain, sent ho me on tylenol with out relief. Then 2 days later SOB but not improving. Got flu shot on 14. Not sent home with potassium given twice. 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
--- OUTSIDE RECORDS SUMMARY | 2018-07-20 06:33 | XMS RPT_ITS ---
:1990 Author Organization OHIP Support Name Relationship Address Phone AKRCHILD Unavailable [address] + [place] [address] KAREN MORIN Unavailable [address] + [place] [address] AKRCHILD Unavailable [address] + [place] [address] KAREN MORIN Unavailable [address] + [place] [address] AKRCHILD Unavailable [address] + [place] [address] KAREN MORIN Unavailable [address] + [place] [address] AKRCHILD Unavailable [address] + [place] [address] KAREN MORIN Unavailable [address] + [place] [address] AKRCHILD Unavailable [address] + [place] [address] KAREN MORIN Unavailable [address] + [place] [address] AKRCHILD Unavailable [address] + [place] [address] KAREN MORIN Unavailable [address] + [place] [address] AKRCHILD Unavailable [address] + [place] [address] KAREN MORIN Unavailable [address] + [place] [address] AKRCHILD Unavailable [address] + [place] [address] KAREN MORIN Unavailable [address] + [place] [address] KAREN MORIN Unavailable [address] + [place] [address] Care Team Providers Name Role Phone JEMIMA TUCKER Attending Unavailable JEMIMA TUCKER Referring Unavailable LOUISE MORIN (CNM) Attending Unavailable JMEIMA TUCKER Referring Unavailable LUCERO MATTSON Attending Unavailable DUMONTHERBERTH ELIAS R Referring Unavailable LOUISE MORIN (CNM) Attending Unavailable LOUISE MORIN (CNM) Referring Unavailable CORNELIUS, ADELA A Attending Unavailable JEMIMA TUCKER Referring Unavailable LOUISE MORIN (CNM) Attending Unavailable LOUISE MORIN (CNM) Attending Unavailable SHIELDS, ADELA A Attending Unavailable LOUISE MORIN (CNM) Referring Unavailable PEBBLES, LINA Primary Care Unavailable EULALIA ZALDIVAR Attending Unavailable PROVIDER, UNKNOWN Attending Unavailable PROVIDER, UNKNOWN Referring Unavailable Fritz, Lizz PRESS CLEANER-C Attending Unavailable Fritz, Gardner PRESS CLEANER-C Referring Unavailable [facility] Primary Care Unavailable [facility] Primary Care Unavailable Jhon Priest Attending Unavailable Pebbles, Lina Primary Care Unavailable [facility] Attending Unavailable Pebbles, Lina Primary Care Unavailable Efrain Olguin Attending Unavailable Brain Del Castillo Attending Unavailable [facility] Primary Care Unavailable [facility] Primary Care Unavailable Ungur, Remus Attending Unavailable Ungur, Remus Referring Unavailable Ashly Morgan Unavailable [facility] Primary Care Unavailable Ungur, Remus Attending Unavailable Timmy Hua PRESS CLEANER-C Attending Unavailable Fritz, Gardner PRESS CLEANER-C Referring Unavailable [facility] Primary Care Unavailable PROBLEMS PROBLEMS DATE TYPE CONDITION / CODE ATTENDING STATUS SOURCE 01/05/2018 Active Encounter for MIKEL LOUISE Active [facility] initial (CNM) [place] prescription of Repository implantable subdermal contraceptive / Z30.017(ICD-10) 04/20/2014 Active Generalized BRIAN, 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, not intractable, without status epilepticus / G40.309(ICD-10) 11/17/2017 Active Somnolence / BRIAN, MIN Active [facility] R40.0(ICD-10) [place] Repository 06/24/2017 Active Left lower quadrant NA Active [facility] pain / [place] R10.32(ICD-10) Repository PROCEDURES PROCEDURES No Procedure Records FoundRESULTS RESULTS PROGRESS Observed: 05/08/2018 Status: COMPLETED Source: [place] [address]:41 PM [facility] REPOSITORY HNO ID: [id number] Author: Adela Shields Service: (none) Author Type: Physician Type: Progress Notes Filed: 05/08/2018 9:47 PM Note Text: A normal sized anteverted uterus with the measurements shown below. The endometrial echo measures 10.8 mm. The endometrial cavity appears normal. There is no evidence of endometrial polyp when compared to the scan done on 01/10/2018 The myometrium appears normal. The right ovary shows a simple sonolucent cyst with a mean diameter of 29 mm. The left ovary shows a simple sonolucent cyst with a mean diameter of 30 mm. There is no free fluid in the cul de sac IMPRESSION: Bilateral simple sonolucent ovarian cysts. Possible physiologic cysts No endometrial polyp noted 12 LEAD ELECTROCARDIOGRAM Observed: 05/06/2018 Status: F Source: [place] 2:38 PM [facility] REPOSITORY [facility] Cardiovascular Services [address] [place] [address] 12 Lead EKG 05/04/18 1333 MR#: [id number] Acct: [id number] Name: DOUG MORIN Rep #: [id number] : 1990 27 From: Miky Blood MD Attending Dr: Status: DEP ER Ordering Dr: Jhon Priest DO Date: 05/04/18 Location: ED Sex: F C Admitted: Test Reason : GEN ILLNESS Blood Pressure : / mmHG Vent. Rate : 066 BPM Atrial Rate : 066 BPM P-R Int : 182 ms QRS Dur : 080 ms QT Int : 382 ms P-R-T Axes : 070 062 053 degrees QTc Int : 400 ms Normal sinus rhythm Normal ECG Confirmed by JEREMI SALGADO, MIKY ([id number]), editor city FELIX CALLE ([id number]) on 05/06/2018 2:38:02 PM Referred By: DERIK Confirmed By:MIKY BLOOD MD 05/06/18 1438 Date Miky Blood MD CC: Macy Akins PRESS CLEANER; Jhon Priest DO Signed EMERGENCY DEPARTMENT Observed: 05/04/2018 Status: F Source: [place] SUMMARY 6:03 PM [facility] REPOSITORY [facility] Medical Records Department [address] [place] [address] Emergency Department Summary 05/04/18 1525 MR#: [id number] Acct: [id number] Name: DOUG MORIN Rep #: [id number] : 1990 27 From: Jhon Priest DO PCP: Macy Akins NP Status: DEP ER - ER Visit Summary Date of Service: 05/04/18 Chief Complaint: Chest pain History of Present Illness: The patient is a 27 F who presents with chest pain that has been constant for the past week. Patient describes the pain is sharp. Patient states pain is over the substernal area. Patient states the pain is worse with deep breathing. Patient states nothing is seem to help with the pain. Patient is concerned that it is related to her newly diagnosed myasthenia gravis. Patient states that she called her primary care physician who referred her to the emergency department. Physical Examination: Vital signs are stable. Patient is afebrile. Patient is in no acute distress. Oral mucosa is pink and moist. Neck is supple. Trachea is midline. There is no JVD noted. Heart was regular rate and rhythm. Lungs are clear and equal bilaterally. Abdomen is soft. Bowel sounds are normal. There is no tenderness. Cranial nerves II through XII are intact. There are no focal motor or sensory deficits noted. Skin is warm and dry. There is no rash or jaundice noted. The remaining physical exam is within normal limits. Test Results: CBC, basic metabolic profile, troponin, and serum hCG were obtained and were all normal. EKG showed normal sinus rhythm with a rate of 66. There are no acute ST or T wave changes noted. PA and lateral chest x-ray was obtained. There is no acute cardiopulmonary process. Emergency Department Course and Treatment: Patient has a HEART score of 1. Patient was advised that this is low risk for acute cardiac event. Patient was instructed to follow-up with her primary care physician in 3-5 days. Patient understood and was agreeable with the plan. All questions were answered. Disposition: Discharge home Impression: Chest pain This note was generated with [employer] software. It may contain incorrect words, spelling, and punctuation that were not noted in review of the chart prior to signing ED Disposition - Plan for ED Patient: Disposition: Home or Assisted Living Chief Complaint: General Illness Diagnosis: Chest pain of uncertain etiology, Myasthenia gravis Instructions: Discharge Instructions for Myasthenia Gravis, ED Chest Pain Atypical Unkn Cause Referrals: Macy Akins, PRESS CLEANER-C [Primary Care Provider] - What to do if you have Problems For any increased pain, shortness of breath, bleeding, nausea or vomiting, chest pain, or any unexpected problems, contact your Primary Care Provider. Call [facility] ([phone]) or report to the closest Emergency Room. Call 911 if necessary. 05/04/181802 <Electronically signed by Jhon Priest DO> Date Jhon Priest DO Cosigner Signature (If Indicated): Date CC: Macy Akins NP CBC W/DIFF, AUTOMATED Collected: 05/04/2018 Status: F Source: [place] 1:10 PM [facility] REPOSITORY TYPE CODE TESTS RESULT OUT OF RANGE REFERENCE UNITS LAB L100.1000 4.4-11.0 K/mm3 Normal WBC 7.0 LAB L100.1200 4.2-5.4 M/mm3 Normal RBC 4.31 LAB L100.1300 12.0-15.0 g/dl Normal HGB 12.2 LAB L100.1400 37-47 % Normal HCT 37.0 LAB L100.1500 81-99 fL Normal MCV 85.8 LAB L100.1600 27.0-32.0 pg Normal MCH 28.3 LAB L100.1700 32-36 g/gl Normal MCHC 33.0 LAB L100.1810 11.6-14.6 % Normal RDW CV 13.5 LAB L100.1820 35.1-43.9 fl Normal RDW SD 42.6 LAB L100.1900 150-450 K/mm3 Normal PLT 246 LAB L100.2000 6.2-12.0 fl Normal MPV 9.2 LAB L100.2100 47-70 % Normal NEUT% 63.6 LAB L100.2200 19-41 % Normal LY% 26.9 LAB L100.2300 0-10 % Normal MONO% 7.1 LAB L100.2400 0-5 % Normal EO% 1.9 LAB L100.2500 0-1 % Normal BASO% 0.4 LAB L100.2550 0.0-0.9 % Normal IM GRAN % 0.100 Result Comment: IG% - Immature Granulocytes (promyelocytes, myelocytes and metamyelocytes) > 1% indicates that a LEFT SHIFT is Present. LAB L100.2620 2.0-7.7 X10 3/uL Normal Absolute Neut 4.5 LAB L100.2720 0.83-4.51 X10 3/ul Normal Absolute Lymph 1.88 Performed By: #### L100.0100 #### [facility] [address] [place], [address] BASIC METABOLIC Collected: 05/04/2018 Status: F Source: [place] PROFILE (BMP) 1:10 PM [facility] REPOSITORY TYPE CODE TESTS RESULT OUT OF RANGE REFERENCE UNITS LAB L501.0100 74-106 mg/dL Normal GLU 80 Result Comment: Please note revised GLUCOSE reference range effective 2017. LAB L501.1000 7-18 mg/dL Normal BUN 16 LAB L501.1100 0.55-1.02 mg/dL Normal CREAT,SERUM 0.68 Result Comment: The validity of the calculated GFR AND GFRAA in patients over 70 years has not been determined. Clinical correlation is essential. LAB L501.1110 >60 mL/min Normal EST GFR 108 Result Comment: Non- GFR Calc LAB L501.1115 >60 mL/min Normal EST GFR - AA 131 Result Comment: GFR Calc LAB L501.1255 ml/min Normal Estimated CRCL 96.55 LAB L501.1300 10-20 RATIO High BUN/CRE 23.6 LAB L501.2200 8.5-10 mg/dL Normal .1 CA 9.0 LAB L501.5300 136-14 mmol/L Normal 5 NA 139 LAB L501.5600 3.5-5. mmol/L Low 1 K 3.4 LAB L501.5900 98-107 mmol/L High CL 108 LAB L501.6100 21.0-3 mmol/L Normal 2.0 CO2 21.0 LAB L501.6200 5-15 Normal GAP 10 Performed By: #### L500.2500, L501.4010 #### [facility] [address] [place], [address] TROPONIN-I Collected: 05/04/2018 Status: F Source: [place] 1:10 PM [facility] REPOSITORY TYPE CODE TESTS RESULT OUT OF RANGE REFERENCE UNITS LAB L501.4010 <0.045 ng/mL Normal < 0.015 TROPONIN-I Result Comment: TROPONIN-I EXPECTED VALUES <0.045 Negative 0.045 - 0.590 Consistent with Cardiac Damage > OR = 0.600 Critical Value Not every elevated troponin is indicative of MD. These values should be used with clinical judgement in examining the patient's clinical picture for diagnosis. To establish a diagnosis of MD versus myocardial injury, there must be a demonstrated rise and/or fall in the troponin values, in addition to ischemic symptoms, EKG changes, new regional wall motion abnormality, and/or angiographical evidence. PLEASE NOTE: REFERENCE RANGES EDITED 17 Performed By: #### L500.2500, L501.4010 #### [facility] [address] [place], [address] HCG TITER QUANT., Collected: 05/04/2018 Status: F Source: [place] SERUM 1:10 PM [facility] REPOSITORY TYPE CODE TESTS RESULT OUT OF RANGE REFERENCE UNITS LAB L700.8000 <9 non-preg mIU/mL Normal HCG < 1 QUANT. Performed By: #### L700.8000 #### [facility] [address] [place], [address] CHEST PA AND LATERAL Observed: 05/04/2018 Status: F Source: [place] 12:59 PM [facility] REPOSITORY [facility] Imaging Services [address] [place] [address] Chest PA and Lateral MR#: [id number] Acct: [id number] Name: DOUG MORIN Rep #: [id number] : 1990 F 27 From: Mitchel Conrad MD PCP: Macy Akins NP Status: REG ER Study: Chest PA and Lateral Date of Exam: 05/04/18 Exam# [id number] Ordering Dr: Jhon Priest DO STUDY: X-RAY CHEST REASON FOR EXAM: Female, 27 years old. One week history of chest pain and shortness of breath. TECHNIQUE: PA and lateral views of the chest. COMPARISON: Comparison is made with prior study dated February 15, 2018. FINDINGS: The lungs are clear and expanded. There is no demonstrated pleural abnormality. Normal size heart. Normal mediastinum and shima. Normal visualized pulmonary arteries. Normal visualized aortic arch and descending thoracic aorta. Normal visualized thoracic spine. Normal visualized ribs, clavicles, and shoulders. There is no demonstrated abnormality of the visualized soft tissue structures of the upper abdomen. RAD/Chest PA and Lateral IMPRESSION: Normal x-ray examination of the chest. Electronically Signed: Mitchel Conrad MD at 13:42 EST Tel [phone], Service support , CC: Macy Akins NP; Jhon Priest DO Thread Marker: Signed CHEST WITHOUT Observed: 04/15/2018 Status: F Source: [place] CONTRAST 3:58 PM [facility] REPOSITORY [facility] Imaging Services [address] [place] [address] Chest without Contrast MR#: [id number] Acct: [id number] Name: DOUG MORIN Rep #: [id number] : 1990 F 27 From: Zach Mercado MD PCP: Macy Akins NP Status: REG CLI Study: Chest without Contrast Date of Exam: 04/15/18 Exam# [id number] Ordering Dr: Lizz Hu PRESS CLEANER-C STUDY: CT CHEST WITHOUT CONTRAST REASON FOR EXAM: Female, 27 years old. Myasthenia gravis RADIATION DOSAGE (If Supplied By Facility): CTDIvol = ( 9.54 ) mGy, DLP = ( 314.74 ) mGycm TECHNIQUE: Transaxial imaging was performed without the administration of intravenous contrast material. Multiplanar coronal and sagittal images were reformatted. Individualized dose optimization techniques were used for this CT. COMPARISON: 05/20/2016 FINDINGS: The lungs are normal. There is no demonstrated pleural abnormality. Normal heart and pericardium. Triangular soft tissue density in the anterior mediastinum is compatible with residual thymic tissue, similar since the prior study. No mediastinal mass. Normal hilar regions. Normal unenhanced pulmonary arteries. Normal aorta arch and descending thoracic aorta. Normal osseous structures. There is no demonstrated abnormality of the visualized upper abdomen. CT/Chest without Contrast IMPRESSION: Normal unenhanced CT Chest examination. Stable exam. No mediastinal mass. Electronically Signed: Zach Mercado MD at 23:47 EST , Service support , CC: Macy Akins NP; DASHA Hu Thread Marker: Signed RADAMES Observed: 02/18/2018 Status: COMPLETED Source: [place] 12:00 AM [facility] REPOSITORY Telephone (WOOB) DOUG MORIN ([id number]) 1990 F Date Time Provider Department 02/18/18 JEFFERSON AGRAWAL) WOOB During your visit today, we recorded the following information about you: Lesly Deras RN 02/18/2018 1:47 PM Signed ----- Message from Louise (Eduardo) Mikel sent at 02/18/2018 1:34 PM EDT ----- Attempted to call patient and notify of HSV 2 positive results. No answer and no message left. Please notify patient of positive results. Valtrex 1 gram PO BID x 10 days. Patient may call me with any further questions, we reviewed possibility of diagnosis at visit and treatment. Louise Morin APRN.EDUARDO Deras RN 02/18/2018 1:49 PM Signed [place]- please file pending Rx in Louise's absence. Will need to try and contact patient again today Lesly Deras RN 02/18/2018 3:10 PM Signed Again attempted to notify patient. Left message for patient to call the office. Notified patient that a message would also be sent on mychart in case patient can not call the office by the end of day. Lesly Meza LPN 02/18/2018 3:27 PM Signed Pt returned call and was given below information and voiced understanding. Pt will check at pharmacy later today. Iris Meza LPN Allergies As of Date: 02/18/2018 Noted Allergy Reaction KEPPRA (LEVETIRACETAM) 11/06/2013 1 - Mental Status Change 14 - Other: See Comments Comments: Hallucinations, suicidal thoughts PENICILLINS 11/06/2013 2 - Rash Date Reviewed: 02/16/2018 Reviewed by: Citlalli Paredes Ma - Fully Assessed Reason for Visit: Results [95] Order(s):valACYclovir (VALTREX) 1 gram tabTake 1 tablet by mouth twice daily for 10 days. FOR 10 DAYS.Disp: 20 tabletRfl: 0 Prescriptions as of 02/18/2018 Sig: VALACYCLOVIR 1 GRAM TABLET Take 1 tablet by mouth twice * ETONOGESTREL 68 MG SUBDERMAL * 68 mg by SUBDERMAL route cont* LAMOTRIGINE ER 100 MG TABLET,* Take two (2.0) in AM and four* ZONISAMIDE 100 MG CAPSULE Take 3 capsules by mouth once* ACETAMINOPHEN 325 MG TABLET Take 650 mg by mouth every 6 * Problem List As Of Date 02/18/2018 Noted Resolved Partial epilepsy with intractable epilepsy (HCC*INVALID FOR*04/20/2014 Generalized convulsive epilepsy (HCC) [G40.309] INVALID FOR* Hand weakness [R29.898] INVALID FOR* Neck pain [M54.2] INVALID FOR* Prescriptions ordered this encounter Disp Refills Start End VALACYCLOVIR 1 GRAM TABLET 20 t* 0 02/18/2018 02/28/2018 Route: ORAL Sig: Take 1 tablet by mouth twice daily for 10 days. FOR 10 DAYS. Encounter Status:Closed by JEFFERSON AGRAWAL CNM on 02/18/18 HSV1,2/VZV AMPLIF Collected: 02/16/2018 Status: F Source: [place] 4:40 PM [facility] REPOSITORY TYPE CODE TESTS RESULT OUT OF RANGE REFERENCE UNITS LAB HVZSRC Specimen Lesion Source LAB HRPSV1 HSV Type 1, Negative for HDA Herpes Simplex virus Type 1 by [facility]. LAB HRPSV2 Abnormal HSV Type 2, Positive for Alert HDA Herpes Simplex virus Type 2 by [facility]. LAB VZOSV V Zoster Negative for Virus, HDA Varicella Zoster virus by [facility]. Performed By: #### HSVVZV #### [facility] [address] [place] [id number] CNOV Observed: 02/16/2018 Status: COMPLETED Source: [place] 2:45 PM [facility] REPOSITORY Office Visit (WOOB) DOUG MORIN ([id number]) 1990 F Date Time Provider Department 02/16/18 2:45 PM LOUISE MORIN (JIMMIE) WOOB During your visit today, we recorded the following information about you: Blood pressure Weight 108/64 58.5 kg Louise Morin APRN.CNM 02/17/2018 3:49 PM Signed Doug Morin is a 27 year old female who presents for problem visit for vulvar blister HPI: Here today with complaint of painful lesion on labia. Started two days ago. Tried applying triple antibiotic ointment, this burned and didn't help. She has never had these lesions before. Patient has not been sexually active in 6 years, no new partners. Recent health concerns she is dealing with. Denies any flu like symptoms, abdominal pain, vaginal discharge or other complaints. PAST MEDICAL HISTORY Diagnosis Date - Abnormal Pap smear of cervix with HPV- h/o LEEP - Depression resolved - Epilepsy (HCC) - Family history of epilepsy Aunt with traumatic epilepsy - Migraine - disorder She was two weeks late; but no complication - Pleurisy recurrent. 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 Lives with mother father and son. Current Outpatient Prescriptions: etonogestrel (NEXPLANON) subdermal implant 68 mg 68 mg by SUBDERMAL route continuous. lamoTRIgine ER (LAMICTAL XR) 100 mg 24 hr tablet Take two (2.0) in AM and four(4.0) tablets at bedtime zonisamide (ZONEGRAN) 100 mg capsule Take 3 capsules by mouth once daily. cyclobenzaprine (FLEXERIL) 5 mg tablet Take 1 tablet by mouth three times daily as needed for Muscle Spasm. (Patient not taking: Reported on 11/17/2017 ) acetaminophen (TYLENOL) 325 mg tablet Take 650 mg by mouth every 6 hours as needed. Magnesium 250 mg tab Take 500 mg by mouth once daily. INTRAUTERINE DEVICE, IUD, INTRAUTERINE by INTRAUTERINE route once daily. No current facility-administered medications for this visit. Allergies As of Date: 02/16/2018 Allergen Noted Reaction KEPPRA [LEVETIRACETAM] 11/06/2013 Mental Status Change and Other: See Comments PENICILLINS 11/06/2013 Rash Fully Assessed 02/03/2018 REVIEW OF SYSTEMS Abdomen: No bloating, early satiety, indigestion, or increased flatulence. No abdominal pain, nausea, vomiting, diarrhea, or constipation. Bladder: No dysuria, gross hematuria, urinary frequency, urinary urgency, or incontinence. Breast: No breast lumps, nipple d/c, overlying skin changes, redness or skin retraction. Expanded ROS: N/A Allergies and current medication updated:Yes EXAM: LMP 01/20/2018 GENERAL: pleasant, female in no apparent distress HEENT: Normocephalic and atraumatic NECK: Supple and full range of motion DERMATOLOGY: Normal and without lesions PELVIC: normal Bartholin's glands, urethra, Forman's glands. Right labia majora with ulcerations, erythremic, no discharge, one vesicle present. Tender to touch. NEURO: alert and oriented x3,exam grossly non-focal EXTREMITIES: normal ASSESSMENT AND PLAN: 1. 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 Offered treatment today or awaiting culture, patient would like to wait. Discussed using lidocaine gel or dermaplast spray, patient declines. Discussed if culture negative may return if no resolution of symptoms in 1-2 weeks. Louise Morin APRN.EDUARDO Referring Provider: SELF [200] Allergies As of Date: 02/16/2018 Noted Allergy Reaction KEPPRA (LEVETIRACETAM) 11/06/2013 1 - Mental Status Change 14 - Other: See Comments Comments: Hallucinations, suicidal thoughts PENICILLINS 11/06/2013 2 - Rash Date Reviewed: 02/16/2018 Reviewed by: Citlalli Paredes Ma - Fully Assessed Primary Visit Diagnosis:Vulvar lesion [N90.89] Order(s):HSV 1,2/VZV AMP MOLECULAR DETECT [SQHSVVZV] Order #: [id number] FUTURE HERPES SIMPLEX TYPE 1 AND 2 IG [[id number]] Order #: [id number] FUTURE Prescriptions as of 02/16/2018 Sig: ETONOGESTREL 68 MG SUBDERMAL * 68 mg by SUBDERMAL route cont* LAMOTRIGINE ER 100 MG TABLET,* Take two (2.0) in AM and four* ZONISAMIDE 100 MG CAPSULE Take 3 capsules by mouth once* ACETAMINOPHEN 325 MG TABLET Take 650 mg by mouth every 6 * Medication notes this encounter MAGNESIUM 250 MG TABLET >> Citlalli Reggie Dannie 02/16/2018 2:29 PM >> CITLALLI PAREDES MA WedFeb 16, 2018 2:29 PM Pt no longer taking INTRAUTERINE DEVICE (IUD) INTRAUTERINE >> Citlalli Paredes Ma 02/16/2018 2:29 PM >> CITLALLI PAREDES MA WedFeb 16, 2018 2:29 PM Pt no longer taking Problem List As Of Date 02/16/2018 Noted Resolved Partial epilepsy with intractable epilepsy (HCC*INVALID FOR*04/20/2014 Generalized convulsive epilepsy (HCC) [G40.309] INVALID FOR* Hand weakness [R29.898] INVALID FOR* Neck pain [M54.2] INVALID FOR* Medications Discontinued During This Encounter INTRAUTERINE DEVICE, IUD, INTRAUTERI* 02/17/2018 Class: Historical Med Route: INTRAUTERINE Sig: by INTRAUTERINE route once daily. Disc: Changing Therapy/Dosage Form cyclobenzaprine (FLEXERIL) 5 mg tabl* 15 t* 0 09/21/2016 02/17/2018 Route: ORAL Sig: Take 1 tablet by mouth three times daily as needed for Muscle Spasm. Patient not taking: Reported on 11/17/2017 Disc: Course of therapy completed Magnesium 250 mg tab 02/17/2018 Class: Historical Med Route: ORAL Sig: Take 500 mg by mouth once daily. Disc: Course of therapy completed Disposition: Return if symptoms worsen or fail to improve. Follow-up and Disposition History Recorded Encounter Status:Closed by LOUISE MORIN on 02/17/18 PROGRESS Observed: 02/16/2018 Status: COMPLETED Source: [place] 2:26 PM [facility] REPOSITORY O ID: [id number] Author: Louise Morin Service: (none) Author Type: Auto Vinyl Top Installer Type: Progress Notes Filed: 02/17/2018 3:49 PM Note Text: Doug Morin is a 27 year old female who presents for problem visit for vulvar blister HPI: Here today with complaint of painful lesion on labia. Started two days ago. Tried applying triple antibiotic ointment, this burned and didn't help. She has never had these lesions before. Patient has not been sexually active in 6 years, no new partners. Recent health concerns she is dealing with. Denies any flu like symptoms, abdominal pain, vaginal discharge or other complaints. PAST MEDICAL HISTORY Diagnosis Date - Abnormal Pap smear of cervix with HPV- h/o LEEP - Depression resolved - Epilepsy (HCC) - Family history of epilepsy Aunt with traumatic epilepsy - Migraine - disorder She was two weeks late; but no complication - Pleurisy recurrent. 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 Lives with mother father and son. Current Outpatient Prescriptions: etonogestrel (NEXPLANON) subdermal implant 68 mg 68 mg by SUBDERMAL route continuous. lamoTRIgine ER (LAMICTAL XR) 100 mg 24 hr tablet Take two (2.0) in AM and four(4.0) tablets at bedtime zonisamide (ZONEGRAN) 100 mg capsule Take 3 capsules by mouth once daily. cyclobenzaprine (FLEXERIL) 5 mg tablet Take 1 tablet by mouth three times daily as needed for Muscle Spasm. (Patient not taking: Reported on 11/17/2017 ) acetaminophen (TYLENOL) 325 mg tablet Take 650 mg by mouth every 6 hours as needed. Magnesium 250 mg tab Take 500 mg by mouth once daily. INTRAUTERINE DEVICE, IUD, INTRAUTERINE by INTRAUTERINE route once daily. No current facility-administered medications for this visit. Allergies As of Date: 02/16/2018 Allergen Noted Reaction KEPPRA [LEVETIRACETAM] 11/06/2013 Mental Status Change and Other: See Comments PENICILLINS 11/06/2013 Rash Fully Assessed 02/03/2018 REVIEW OF SYSTEMS Abdomen: No bloating, early satiety, indigestion, or increased flatulence. No abdominal pain, nausea, vomiting, diarrhea, or constipation. Bladder: No dysuria, gross hematuria, urinary frequency, urinary urgency, or incontinence. Breast: No breast lumps, nipple d/c, overlying skin changes, redness or skin retraction. Expanded ROS: N/A Allergies and current medication updated:Yes EXAM: LMP 01/20/2018 GENERAL: pleasant, female in no apparent distress HEENT: Normocephalic and atraumatic NECK: Supple and full range of motion DERMATOLOGY: Normal and without lesions PELVIC: normal Bartholin's glands, urethra, Forman's glands. Right labia majora with ulcerations, erythremic, no discharge, one vesicle present. Tender to touch. NEURO: alert and oriented x3,exam grossly non-focal EXTREMITIES: normal ASSESSMENT AND PLAN: 1. 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 Offered treatment today or awaiting culture, patient would like to wait. Discussed using lidocaine gel or dermaplast spray, patient declines. Discussed if culture negative may return if no resolution of symptoms in 1-2 weeks. Louise Morin APRN.CNM CHEST PA AND LATERAL Observed: 02/15/2018 Status: F Source: [place] 3:49 PM [facility] REPOSITORY [facility] Imaging Services [address] [place] [id number] Chest PA and Lateral MR#: [id number] Acct: [id number] Name: DOUG MORIN Rep #: [id number] : 1990 F 27 From: Dejuan Chase MD PCP: Macy Akins NP Status: REG CLI Study: Chest PA and Lateral Date of Exam: 02/15/18 Exam# [id number] Ordering Dr: Lizz Hu STUDY: X-RAY CHEST REASON FOR EXAM: Female, 27 years old. Shortness of breath TECHNIQUE: Frontal and lateral views of the chest COMPARISON: 05/13/2016 FINDINGS: The lungs are clear. There are no pleural effusions. There is no pneumothorax. The heart is normal in size. The visualized osseous structures are within normal limits. RAD/Chest PA and Lateral IMPRESSION: No acute thoracic pathology. Electronically Signed: Dejuan Chase, at 16:16 EDT Tel , Service support , CC: Macy Akins NP; DASHA Hu Thread Marker: Signed CONSULTATION Observed: 02/14/2018 Status: F Source: [place] 11:17 AM [facility] REPOSITORY [facility] Medical Records Department [address] [place] [address] Consultation 02/11/18 1401 MR#: [id number] Acct: [id number] Name: DOUG MORIN Rep #: [id number] : 1990 27 From: Ashly Morgan MD PCP: Macy Akins NP Status: DEP ER Y Location: ED Problem List (1) Slurred speech Status: Acute (2) Arm weakness Status: Acute Reason for Consult Date of Consultation: 02/11/18 Reason [...] seizures since January 07 2018, denies any BOURNE, visual disturbances, sensory loss. She feels her finger on the right hand may curl up, has some neck pain but denies any radicular symptoms. She follows up with me as outpatient for seizure management. She was initially seen by [facility] and by Dr. Dumont from [facility] for epilepsy in the past, was intolerant to Keppra as had suicidal ideation. Past Medical History Past Medical History (Chronic Problems): Chronic Problems Epilepsy (Chronic) Allergies levetiracetam [From Keppra] Allergy (Verified 02/11/18 12:17) Other Penicillins Allergy (Verified 02/11/18 12:17) Rash Home Medications: Ambulatory Orders Medication Instructions Recorded Lamotrigine [Lamictal] 200 mg PO QHS 12/23/17 Zonisamide 200 mg PO BID 12/23/17 Lamotrigine [Lamictal] 400 mg PO DAILY 01/07/18 Lives: - - With her mother and child Smoking Status: Never smoker Alcohol: None Drugs: None - *Family History Maternal History Items: No pertinent history Review of Systems Constitutional: Reports: - - complete ROS negative except as documented in HPI Patient Problems: Active and Suspected Problems Slurred speech (Acute) Arm weakness (Acute) - Physical Exam General: Alert HEENT: Normocephalic Neck: Supple Lungs: Normal air movement Cardiovascular: Normal S1, Normal S2 Abdomen: Bowel Sounds Present Extremities: No cyanosis Skin: No rashes Neurological: - - consious, alert, AoAx3, CN 2-12 grossly intact, power 5/5 all 4 extremities, did not apreciate any focal weakness at present, no sensory loss, no cerebellar signs, Reflexes + B/L B/S/T/K/A, no slurred speech on examination at present. Psych/Mental Status: Normal Affect Vital Signs Temp Pulse Resp BP Pulse Ox 97.8 F 106 H 17 127/80 H 100 02/11/18 12:18 02/11/18 12:18 02/11/18 12:18 02/11/18 12:18 02/11/18 12:18 Oxygen Delivery Method Room Air Weight: 58.513 kg Body Mass Index (BMI) 23.6 Finger Stick Blood Glucose 99 Assessment/Plan All Active Problems Slurred speech (Acute) Arm weakness (Acute) [...] seizures since January 07 2018, denies any BOURNE, visual disturbances, sensory loss. She feels her finger on the right hand may curl up, has some neck pain but denies any radicular symptoms. She follows up with me as outpatient for seizure management. She was initially seen by [facility] and by Dr. Dumont from [facility] for epilepsy in the past, was intolerant to Keppra as had suicidal ideation. Impression H/O seizures ? Slurred speech and arm weakness, difficulty swallowing. Plan -Check MRI brain and MRI C spine w/o contrast -Check ACH receptor binding/blocking and modulating ab -Continue home dose of seizure medications Zonisamide and Lamictal -If neuroimaging is negative, may require further evaluation with psychiatry/psychology. -Discussed about stress at present and patient has denied having any stress -May need swallow evaluation and speech therapy referral -GI/DVT prophylaxis -Fall precautions -Seizure precautions -Please call with questions if any -Follow up with Neurology as outpatient. -Thank you for allowing us to participate in patient's care and management. Code Visit Inpatient E AND M: [id number] Init Hosp L3 02/14/18 1117 <Electronically signed by Ashly Morgan MD> Date Ashly Morgan MD Cosigner Signature (if applicable): Date CC: Macy Akins NP Signed EMERGENCY DEPARTMENT Observed: 02/11/2018 Status: F Source: [place] SUMMARY 5:00 PM [facility] REPOSITORY [facility] Medical Records Department [address] [place] [address] Emergency Department Summary 02/11/18 1655 MR#: [id number] Acct: [id number] Name: DOUG MORIN Rep #: [id number] : 1990 27 From: Naomi Durbin DO PCP: Macy Akins NP Status: DEP ER - ER Visit Summary Date of Service: 02/11/18 Chief Complaint: [Slurred speech, difficulty swallowing, and right hand weakness] History of Present Illness: The patient is a 27 F [presents to the emergency department with multiple complaints today. Patient was seen at her primary care physician's office and sent to the ER for further workup and evaluation. Patient states that she has had 2 seizures in the last 3 months both of which resulted in head injury and concussion. Patient's last seizure was January 07 at which time she did hit her head and had a CT scan of her head which was unremarkable. Patient does have a history of migraines, epilepsy, and history of pleurisy. Patient gives history that she has had intermittent episodes since her seizure of slurred speech as well as difficulty swallowing specifically complaining of masslike sensation left side of her neck making it difficult to swallow. Patient today also complaining of intermittent episodes of weakness in her right hand and having a hard time writing. Patient denies any recent fever or illness. She denies any falls or head injuries. Patient was seen by her ear nose and throat physician 2 days ago and had nasopharyngoscopy that showed some abnormal discoloration of left side of her throat and she was started on Bactrim and prednisone. This treatment has made no difference in her symptomatology.] Physical Examination: [HEENT-PERRLA, EOMI. Cranial nerves II through XII grossly intact. TMs clear. Mucous membranes moist. No adenopathy. Cardiovascular-regular rate and rhythm without murmur or ectopy Lungs-clear to auscultation, chest wall stable without crepitus or subcu emphysema Abdomen-normoactive bowel sounds, soft, nontender, no rebound or rigidity, no peritoneal signs. Neuro knir-hfxcxs-mseo and heel peters testing within normal limits, negative Romberg, negative , Fundi benign. NIH stroke scale was 0 here. There is no objective weakness noted of the right hand. Extremities-intact 4, normal range of motion, normal pulses, atraumatic] Test Results: [CBC with differential was normal. Chemistries showed a slightly depressed potassium of 3.3 for which I did give her 40 mEq of potassium chloride. MRI of the brain with and without contrast was normal. MRI of the cervical spine was normal.] Emergency Department Course and Treatment: [Patient case was discussed with neurologist on-call Dr. Morgan] who asked that we obtain the MRI of the head and C-spine. Treatment Plan: [Follow-up with neurology on an outpatient basis and consider follow-up with psychiatry as well. Cannot rule out anxiety or stress reaction as possible etiology of her symptoms however patient does not believe this to be the case and does not feel like she is stressed.] Disposition: [Discharged home in stable condition] Impression: [Dysarthria etiology uncertain Dysphasia-etiology uncertain Right hand weakness-etiology uncertain] This note was generated with [employer] software. It may contain incorrect words, spelling, and punctuation that were not noted in review of the chart prior to signing ED Disposition - Plan for ED Patient: Chief Complaint: Weakness Instructions: ED Weakness [facility] Referrals: Gerald Gilmore MD [STAFF PHYSICIAN] - 3-5 Days Macy Akins NP-C [Primary Care Provider] - What to do if you have Problems For any increased pain, shortness of breath, bleeding, nausea or vomiting, chest pain, or any unexpected problems, contact your Primary Care Provider. Call [facility] ([phone]) or report to the closest Emergency Room. Call 911 if necessary. 02/11/18 1700 <Electronically signed by Naomi Durbin DO> Date Naomi Durbin DO Cosigner Signature (If Indicated): Date CC: Macy Akins NP DISCHARGE INSTRUCTION Observed: 02/11/2018 Status: F Source: [place] 4:55 PM [facility] REPOSITORY [facility] Medical Records Department [address] [place] [address] Discharge Instruction 02/11/18 1653 MR#: [id number] Acct: [id number] Name: DOUG MORIN Rep #: [id number] : 1990 27 From: Naomi Durbin DO PCP: Macy Akins NP Status: DEP ER ED Disposition - Plan for ED Patient: Chief Complaint: Weakness Instructions: ED Weakness [facility] Referrals: Macy Akins, DASHA-C [Primary Care Provider] - Gerald Gilmore MD [STAFF PHYSICIAN] - 3-5 Days What to do if you have Problems For any increased pain, shortness of breath, bleeding, nausea or vomiting, chest pain, or any unexpected problems, contact your Primary Care Provider. Call [facility] ([phone]) or report to the closest Emergency Room. Call 911 if necessary. 02/11/18 1655 <Electronically signed by Naomi Durbin DO> Date Naomi Durbin DO Cosigner Signature (If Indicated): Date CC: Macy Akins NP CBC W/DIFF, AUTOMATED Collected: 02/11/2018 Status: F Source: [place] 2:03 PM [facility] REPOSITORY TYPE CODE TESTS RESULT OUT OF RANGE REFERENCE UNITS LAB L100.1000 4.4-11.0 K/mm3 Normal WBC 9.3 LAB L100.1200 4.2-5.4 M/mm3 Normal RBC 4.44 LAB L100.1300 12.0-15.0 g/dl Normal HGB 12.8 LAB L100.1400 37-47 % Normal HCT 37.2 LAB L100.1500 81-99 fL Normal MCV 83.8 LAB L100.1600 27.0-32.0 pg Normal MCH 28.8 LAB L100.1700 32-36 g/gl Normal MCHC 34.4 LAB L100.1810 11.6-14.6 % Normal RDW CV 13.3 LAB L100.1820 35.1-43.9 fl Normal RDW SD 40.5 LAB L100.1900 150-450 K/mm3 Normal PLT 265 LAB L100.2000 6.2-12.0 fl Normal MPV 9.5 LAB L100.2100 47-70 % High NEUT% 93.7 LAB L100.2200 19-41 % Low LY% 5.2 LAB L100.2300 0-10 % Normal MONO% 0.9 LAB L100.2400 0-5 % Normal EO% 0.0 LAB L100.2500 0-1 % Normal BASO% 0.1 LAB L100.2550 0.0-0.9 % Normal IM GRAN % 0.100 Result Comment: IG% - Immature Granulocytes (promyelocytes, myelocytes and metamyelocytes) > 1% indicates that a LEFT SHIFT is Present. LAB L100.2620 2.0-7.7 X10 3/uL High Absolute Neut 8.7 LAB L100.2720 0.83-4.51 X10 3/ul Low Absolute Lymph 0.48 LAB L100.5000 Normal HYPERSEG RARE Performed By: #### L100.0100 #### [facility] [address] [place], [address] BASIC METABOLIC Collected: 02/11/2018 Status: F Source: [place] PROFILE (BMP) 2:03 PM [facility] REPOSITORY TYPE CODE TESTS RESULT OUT OF RANGE REFERENCE UNITS LAB L501.0100 74-106 mg/dL High GLU 115 Result Comment: Fasting Glucose result from 100 to 125 mg/dL suggests IMPAIRED HOMEOSTASIS per A.D.A. criteria. Please note revised GLUCOSE reference range effective 2017. LAB L501.1000 7-18 mg/dL Normal BUN 12 LAB L501.1100 0.55-1.02 mg/dL Normal CREAT,SERUM 0.88 Result Comment: The validity of the calculated GFR AND GFRAA in patients over 70 years has not been determined. Clinical correlation is essential. LAB L501.1110 >60 mL/min Normal EST GFR 81 Result Comment: Non- GFR Calc LAB L501.1115 >60 mL/min Normal EST GFR - AA 97 Result Comment: GFR Calc LAB L501.1255 ml/min Normal Estimated CRCL 74.60 LAB L501.1300 10-20 RATIO Normal BUN/CRE 13.6 LAB L501.2200 8.5-10 mg/dL Normal .1 CA 8.8 LAB L501.5300 136-14 mmol/L Normal 5 NA 138 LAB L501.5600 3.5-5. mmol/L Low 1 K 3.3 LAB L501.5900 98-107 mmol/L High CL 110 LAB L501.6100 21.0-3 mmol/L Low 2.0 CO2 19.0 LAB L501.6200 5-15 Normal GAP 9 Performed By: #### L500.2500 #### [facility] [address] [place], [address] [facility] [employer] AB, Collected: 02/11/2018 Status: F Source: [place] BLOCKING 2:03 PM [facility] REPOSITORY TYPE CODE TESTS RESULT OUT OF RANGE REFERENCE UNITS LAB L3410.0100 0-25 % High ACHR REC [id number] Result Comment: Results verified by repeat testing Negative: 0 - 25 Borderline: 26 - 30 Positive: >30 Results for this test are for research purposes only by the assay's side stitcher. The performance characteristics of this product have not been established. Results should not be used as a diagnostic procedure without confirmation of the diagnosis by another medically established diagnostic product or procedure. Performed By: #### L3410.0100, L3410.0200 #### [facility] (refer to report for specific site) refer to report for address and phone number [facility] AB MODULATING Collected: 02/11/2018 Status: F Source: [place] 2:03 PM [facility] REPOSITORY TYPE CODE TESTS RESULT OUT OF RANGE REFERENCE UNITS LAB L3410.0200 0-20 % High [facility] AB [id number] Result Comment: Negative: <21 Equivocal: 21 - 25 Positive: >25 The assay is linear between values of 12 and 64. Those <12 and >64 are reported as such. No single value for ACR-modulating antibody should be used as a sole basis for diagnosis or response to therapy. Performed at: - [facility] [id number] [place] Orientator: Oscar Lynn MD, Phone: [phone] Performed By: #### L3410.0100, L3410.0200 #### [facility] (refer to report for specific site) refer to report for address and phone number SPINE CERVICAL Observed: 02/11/2018 Status: F Source: [place] (ROUTINE) 2:01 PM [facility] REPOSITORY [facility] Imaging Services [address] [place] [address] Spine Cervical (Routine) MR#: [id number] Acct: [id number] Name: DOUG MORIN Rep #: [id number] : 1990 F 27 From: Tessie Peacock MD PCP: Macy Akins NP Status: REG ER Study: Spine Cervical (Routine) Date of Exam: 02/11/18 Exam# [id number] Ordering Dr: Ashly Morgan MD STUDY: MRI CERVICAL SPINE WITHOUT CONTRAST REASON FOR EXAM: Female, 27 years old. Slurred speech, dysphagia, night sweats. Hand weakness. TECHNIQUE: Standardized fat and water weighted pulse sequences were obtained in the sagittal and axial planes. COMPARISON: None FINDINGS: Normal foramen magnum and brainstem-cervical cord junction. Normal craniovertebral junction. Normal anterior atlantoaxial articulation. Normal odontoid process. Normal cervical lordosis. Normal vertebral bodies and posterior osseous elements. C2-3: Normal endplates. Normal disc height, signal and morphology. Normal central canal and intervertebral neural foramina. C3-4: Normal endplates. Normal disc height, signal and morphology. Normal central canal and intervertebral neural foramina. C4-5: Normal endplates. Normal disc height, signal and morphology. Normal central canal and intervertebral neural foramina. C5-6: Normal endplates. Normal disc height, signal and morphology. Normal central canal and intervertebral neural foramina. C6-7: Normal endplates. Normal disc height, signal and morphology. Normal central canal and intervertebral neural foramina. C7-T1: Normal endplates. Normal disc height, signal and morphology. Normal central canal and intervertebral neural foramina. Normal cervical cord. Normal visualized soft tissue structures. MRI/Spine Cervical (Routine) IMPRESSION: Normal unenhanced MR examination of the cervical spine. Electronically Signed: Tessie Peacock MD at 16:08 EDT Tel , Service support , CC: Macy Akins NP; Juwan Morgan MD Thread Marker: Signed BRAIN W/WO CONTRAST Observed: 02/11/2018 Status: F Source: [place] 1:35 PM [facility] REPOSITORY [facility] Imaging Services [address] [place] [address] Brain W/WO Contrast MR#: [id number] Acct: [id number] Name: DOUG MORIN Rep #: [id number] : 1990 F 27 From: Tessie Peacock MD PCP: Macy Akins NP Status: REG ER Study: Brain W/WO Contrast Date of Exam: 02/11/18 Exam# [id number] Ordering Dr: Naomi Durbin DO STUDY: MRI BRAIN WITH AND WITHOUT CONTRAST REASON FOR EXAM: Female, 27 years old. Slurred speech, migraines, weakness. TECHNIQUE: Standardized multiplanar fat and water weighted pulse sequences were obtained. 6 ml of Gadavist contrast material was administered intravenously for the contrast portion of the examination. COMPARISON: None. FINDINGS: There is no intracranial mass, mass effect or midline shift. There is no hemorrhage, [...] tissue structures. Normal visualized upper cervical spine. MRI/Brain W/WO Contrast IMPRESSION: Normal unenhanced and enhanced MRI of the brain. Electronically Signed: Tessie Peacock MD at 16:40 EDT Tel , Service support , CC: Macy Akins NP; Naomi Durbin DO Thread Marker: Signed PROGRESS Observed: 02/03/2018 Status: COMPLETED Source: [place] 2:40 PM [facility] REPOSITORY O ID: [id number] Author: Louise Morin Service: (none) Author Type: Auto Vinyl Top Installer Type: Progress Notes Filed: 02/03/2018 5:02 PM Note Text: Doug Morin is a 27 year old female who presents for problem visit for nexplanon. HPI: Nexplanon placed on 01/05/18 without complications. Patient stated no bruising and healing was normal. Yesterday noticed red spot near insertion site and can feel nexplanon raise up and a bump near insertion site. No pain or discomfort, no other concerns. Some irregular spotting and bleeding over last two weeks but voiced understanding that this is normal at this time. PAST MEDICAL HISTORY Diagnosis Date - Abnormal Pap smear of cervix with HPV- h/o LEEP - Depression resolved - Epilepsy (HCC) - Family history of epilepsy Aunt with traumatic epilepsy - Migraine - disorder She was two weeks late; but no complication - Pleurisy recurrent. 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 Lives with mother father and son. Current Outpatient Prescriptions: etonogestrel (NEXPLANON) subdermal implant 68 mg 68 mg by SUBDERMAL route continuous. lamoTRIgine ER (LAMICTAL XR) 100 mg 24 hr tablet Take two (2.0) in AM and four(4.0) tablets at bedtime zonisamide (ZONEGRAN) 100 mg capsule Take 3 capsules by mouth once daily. Magnesium 250 mg tab Take 500 mg by mouth once daily. cloBAZam (ONFI) 10 mg tab tablet Take 0.5 tablets by mouth daily at bedtime for 90 days. (Patient not taking: Reported on 01/05/2018 ) cyclobenzaprine (FLEXERIL) 5 mg tablet Take 1 tablet by mouth three times daily as needed for Muscle Spasm. (Patient not taking: Reported on 11/17/2017 ) acetaminophen (TYLENOL) 325 mg tablet Take 650 mg by mouth every 6 hours as needed. INTRAUTERINE DEVICE, IUD, INTRAUTERINE by INTRAUTERINE route once daily. No current facility-administered medications for this visit. Allergies As of Date: 02/03/2018 Allergen Noted Reaction KEPPRA [LEVETIRACETAM] 11/06/2013 Mental Status Change and Other: See Comments PENICILLINS 11/06/2013 Rash Fully Assessed 02/03/2018 REVIEW OF SYSTEMS Abdomen: No bloating, early satiety, indigestion, or increased flatulence. No abdominal pain, nausea, vomiting, diarrhea, or constipation. Bladder: No dysuria, gross hematuria, urinary frequency, urinary urgency, or incontinence. Breast: No breast lumps, nipple d/c, overlying skin changes, redness or skin retraction. Expanded ROS: N/A Allergies and current medication updated:Yes EXAM: BP 112/70 Wt 129 lb (58.5kg) LMP 01/20/2018 GENERAL: pleasant, female in no apparent distress HEENT: Normocephalic and atraumatic NECK: Supple and full range of motion NEURO: alert and oriented x3,exam grossly non-focal EXTREMITIES: normal. Nexplanon in left upper arm, in appropriate place, healed well. There is a small erythemic patch near prior insertion site. Nexplanon is not protruding through skin. No pain with palpation. ASSESSMENT AND PLAN: 1. Encounter for surveillance of Nexplanon subdermal contraceptive - ICD9: V25.43, ICD10: Z30.46 (primary diagnosis) -Reviewed with patient that the nexplanon appears normal at this time and no concerns. She does appear to have a mild contact dermatitis, patient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 5. Sensory is intact. DTRs are symmetric with no clonus or Babinski sign. Cranial 2 through 12 are intact. Cerebellar testing is normal. Gait was observed and normal. Test Results: None were obtained Emergency Department Course and Treatment: Since patient is PERC negative CT of the chest is not indicated. Patient does not have a thunderclap headache no nuchal rigidity or photophobia with a normal neuro exam in my professional opinion CT of the head is not indicated. Because she has been lightheaded with ocular symptoms will treat with Benadryl, Toradol and Reglan. She is now smiling which she was not. Her chest pain improved slightly. Treatment Plan: NSAIDs since no contraindication Disposition: Discharged to home with mother Impression: 1. Pleurisy secondary to recent viral illness 2. Unilateral headache suspect migraine variant This note was generated with [employer]form[employer] dictation software. It may contain incorrect words, spelling, and punctuation that were not noted in review of the chart prior to signing ED Disposition - Plan for ED Patient: Disposition: Home or Assisted Living Chief Complaint: Chest Pain Instructions: ED Chest Pain Pleurisy Prescriptions: Naproxen [Naprosyn] 500 mg PO BID #10 tab Referrals: Macy Akins [Primary Care Provider] - 1 Week if not improving What to do if you have Problems For any increased pain, shortness of breath, bleeding, nausea or vomiting, chest pain, or any unexpected problems, contact your Primary Care Provider. Call [facility] ([phone]) or report to the closest Emergency Room. Call 911 if necessary. 12/23/17 0287 <Electronically signed by Brain Del Castillo MD> Date Brain Schaffer Signature (If Indicated): Date CC: Macy Akins PRESS CLEANER LAMOTRIGINE Collected: 11/17/2017 Status: F Source: [place] 3:37 PM [facility] REPOSITORY TYPE CODE TESTS RESULT OUT OF REFERENCE UNITS RANGE LAB LMTR 1-13 ug/mL Lamotrigine 9.4 Result Comment: This test was developed and its performance characteristics determined by [facility] Pathology and Laboratory Medicine [place] ([facility]). It has not been cleared or approved by the FDA. [facility] is regulated under CLIA as qualified to perform high-complexity testing. This test is used for clinical purposes. It should not be regarded as investigational or for research. Performed By: #### LMTR, ZONIS #### [facility] [employer] [address] [place] [address] ZONISAMIDE Collected: 11/17/2017 Status: F Source: [place] 3:37 PM [facility] REPOSITORY TYPE CODE TESTS RESULT OUT OF REFERENCE UNITS RANGE LAB ZON 10.0-40.0 ug/mL Zonisamide 18.7 Result Comment: This test was developed and its performance characteristics determined by [facility]ology and Laboratory [facility] [place] ([facility]). It has not been cleared or approved by the FDA. [facility] is regulated under CLIA as qualified to perform high-complexity testing. This test is used for clinical purposes. It should not be regarded as investigational or for research. Performed By: #### LMTR, ZONIS #### [facility] [address] [address] PROGRESS Observed: 11/17/2017 Status: COMPLETED Source: [place] 2:20 PM [facility] REPOSITORY HNO ID: [id number] Author: Nancy Chatman (Flight Engineer Inspector) Brian Service: (none) Author Type: Nurse Practitioner Type: Progress Notes Filed: 11/18/2017 2:05 AM Note Text: [facility] Neurological [place] [facility] Patient Name: Doug Morin Date of : 1990 CLINIC NOTE - FOLLOW UP VISIT CHIEF COMPLAINT: Patient presents with: Follow Up: Last seizure was on 11/03/17 The patient has returned for follow up in order to discuss the medical management of her epilepsy. PRESENT ILLNESS: This is a 27 year old right-handed female whose history and EEG are suggestive for a diagnosis of a generalized (genetic) epilepsy. Established patient of Dr. Dumont and last seen by him on 08/26/2016. She is here by herself for follow up. At the last visit, LTG was adjusted for her to receive more at night in hopes that it protects her in the morning. She had a seizure on 11/03. Patient recently traveled to [place] with her friend. Worked 2 straight 8 hour days after trip. Patient felt exhausted then next day had a GTC. She was sitting on a couch and fell on her face with whole body convulsions. LOC, BL TB. No UI. She was taken to ED and LTG level was checked that was 4.5. Prior GTC 12/2016. Known triggers are physical exertion, sleep deprivation, and stress. c/o increased stress level with raising her 6 year old son. Denies acute medical issues. Doing well overall. Current AEDs: ZNS 300 QHS LTG ER 200/400 Last visit note: On August 03 and August 17, she dropped her coffee and was disoriented. She has problems with word finding difficulties or knowing were she was. Both times were at work, she fell with both episodes. She fell on to her left knee. It took her a couple of hours to get back to baseline. With the last episode she lost memory for periods of her seizure. It took her all day to get back to baseline with the last seizure and slept all day. She also has a pressure on the back since the last seizure on August 17. She thinks it is a heavy sensation (not pain); she has no nausea or vomiting. She has been tired for the last couple of months. Prior to August 03 she did not have any seizures since January 2016. There has been no stressors, missed medications, no fevers, no alcohol use. She has had problems with sleep; it takes her a long time for her to get to sleep. She does doze off at work. She does not feel rested when she wake up feeling rested. She does not have a bed partner and has not been told that she snores. She drinks about one coffee a day; she does not drink cafienated soda. Both time the seizures occurred at 5:30am. She is take zonisamide 300mg daily (she had problems with double vision with the 400mg dose) and Lamictal XR 300mg twice daily. She has only had double vision twice some time around afternoon lasting a couple of hours. Seizure History: She is having double vision and more headaches. Her arms feels icy hot and heavy. She has two seizure types: generalized tonic-clonic and another which is likely tonic seizures which she calls tremors so as not to confuse them with her GTCs which she calls her seizures. She describes her tremors as episodes in which she snorts, curls up, and brief stiffen. These are very brief. Afterwards she has a headache and muscle soreness. She can have 1-2 of these episodes in a week then can go 2 months without any. She had grand mal seizures in the past with the last one being being three years. She had an episode of convulsive status epilepticus while she was around 2 years ago. She was air flighted from [place] to [facility] to [facility]. She is currently taking Lamictal XR 300mg twice daily and Vimpat 50mg in AM 100mg in PM. The Vimpat was lowered 2-3 months after her baby was delivered (February 2012). Her double vision improved but in the past 8 months it is worse and more frequent. She has not had any weight changes or new medications. The first clear seizure was at age of 11 years. There were some members of the family who felt that she may staring 11-12 years of age but her mother is not convinced it. She gets two migraine headaches per week. History from Dr. Carmella Fofana's Note from November 06, 2013: She has history of epilepsy since childhood. She is accompanied with her mother. She was following with Dr. Shelton Benitez at [facility]. 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 She has moved to [place] from [place] in 2013. Her last severe episode of seizures was over 2 yrs ago. She had status epilepticus, clonic tonic seizures during at 7 month gestation for over 8-10 hrs. She was air lifted to [facility]. Her seizures were eventually controlled with medication. She delivered her baby at term w/o any complications. She was on combination of Lamictal and low dose Depakote during her . No grand mal seizures since that time. She had severe reaction to Keppra in past. She had hallucinations and depression. She was on it at age 14. She had high liver enzymes on Depakote in past. She went off Depakote 2 yrs ago. She had an episode 2 weeks ago which consisted of patient posturing/?myoclonic jerking, snorting for seconds. This occurred early in morning. She has been having these episodes infrequently. Onset 2 years. She can have an episode once every few weeks to few months on average. No auras when this occurs. Her last EMU testing was about 2 yrs ago. Early in morning she has most of her seizures. She started having staring spells approximately age 9 to 10 yrs old. She had her first grand mal seizure at age 11. She had severe head trauma while playing in 5th grade, 10 years. Family hx of seizures in aunt. Her aunt seizures are secondary to hx of head trauma. Seizure duration is typically 3-5 minutes. The last generalized motor seizure occurred during ~2 yrs ago-tonic clonic seizure. There is history of tongue biting and no history of urine incontinence. The generalized motor seizures occur typically early in morning. The longest seizure-free interval has been 5 yrs. There is history of status epilepticus during 8 hrs, GTC-grand mal 5 minutes (high school). There is a history of physical injury from seizures, which includes facial injury/bruising. Postictal symptoms include --sleeps afterwards; not sure how long, can last 24 hrs. 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 Driving status: Not driving Mood status: She is stressed living by herself and with her four year old son. Memory status: Usually okay Sleep: daytime fatigue. RISK FACTORS: Brain Tumor N NETWORK DEVELOPER Infections N Developmental Delay N Family history of epilepsy Y Febrile Seizure N Complications Y Stroke N Traumatic Brain Injury Y CURRENT MEDICATIONS: zonisamide (ZONEGRAN) 100 mg capsule Take 3 capsules by mouth once daily. lamoTRIgine ER (LAMICTAL XR) 100 mg 24 hr tablet Take two (2.0) in AM and four(4.0) tablets at bedtime cyclobenzaprine (FLEXERIL) 5 mg tablet Take 1 tablet by mouth three times daily as needed for Muscle Spasm. acetaminophen (TYLENOL) 325 mg tablet Take 650 mg by mouth every 6 hours as needed. Magnesium 250 mg tab Take 500 mg by mouth once daily. INTRAUTERINE DEVICE, IUD, INTRAUTERINE by INTRAUTERINE route once daily. The patient's side effects to the current medications are double vision, headaches, arms feeling icy/hot. PRIOR ANTICONVULSANT HISTORY: Depakote-- elevated LFT; Keppra- suicide ideations and hallucination; Lamictal; Vimpat PAST MEDICAL HISTORY Diagnosis Date - Abnormal Pap smear of cervix with HPV- h/o LEEP - Depression resolved - Epilepsy (HCC) - Family history of epilepsy Aunt with traumatic epilepsy - Migraine - disorder She was two weeks late; but no complication - Pleurisy recurrent. - Traumatic brain injury (HCC) ~ 9 years of age Fell off the [employer]; lost consciousness 3-5 minutes Past Medical History Pertinent Negatives: 01/15/2014: Atrial fibrillation ([facility]) 01/15/2014: Brain tumor ([facility]) 04/08/2016: Cancer ([facility]) 01/15/2014: Chronic obstructive pulmonary disease (COPD) (* 01/15/2014: Chronic renal insufficiency 01/15/2014: NETWORK DEVELOPER infection 01/15/2014: Congestive heart failure ([facility]) 01/15/2014: Coronary artery disease 01/15/2014: Developmental delay 01/15/2014: Diabetes ([facility]) 01/15/2014: Febrile seizure ([facility]) 01/15/2014: Hypertension 01/15/2014: Hypothyroidism 01/15/2014: Obstructive sleep apnea 01/15/2014: Steroid long-term use 01/15/2014: Stroke ([facility]) 01/15/2014: Substance abuse ([facility]) PAST SURGICAL HISTORY Procedure Laterality Date - APPENDECTOMY - LEEP PROCEDURE (TRANSFER ENGINEER DEPT)_*FL FAMILY HISTORY Problem Relation Age of Onset - Multiple Sclerosis Sister - Seizures Maternal Aunt Traumatic epilepsy - Headache Mother - Headache Maternal Grandfather Social History Marital status: Single Spouse name: Years of education: 14 Number of children: 1 Occupational History 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 Lives with mother father and son. REVIEW OF SYSTEMS: CONST: no change in weight; no lightheadedness; no fevers, chills, or night sweats. There have been no headaches. EYES: no double vision; no blurred vision ENT: no change in hearing; no trouble swallowing NEURO: no focal weakness or sensory loss CARD: no chest pain or palpitations, no leg edema RESP: no shortness of breath or cough : no urinary urgency, frequency, or hematuria GI: no abdominal pain or change in bowel habits MUSC: no joint pain or swelling, no muscle or back pain PSYCH: no change in mood or sleep patterns HEME: no bruising, bleeding, or swollen glands. All other organ systems are negative. GENERAL EXAMINATION: Blood pressure 112/62, pulse 76, height 160 cm (5' 3), weight 55.8 kg (123 lb). General Appearance: This is a average built female. HEENT: This is no facial dysmorphic features. SKIN: There is no stigmata for neurocutaneous disorders. Extremities: There is no clubbing, cyanosis, pallor or edema. NEUROLOGICAL EXAMINATION: Alert and oriented times three with normal speech/language and normal higher cognitive function The pupils were 4 mm symmetrical, round, and reactive to light and accommodation. The visual moore were intact to confrontation. The ocular ductions were full with no evidence for gaze evoked nystagmus. There was no evidence for facial asymmetry. Muscle tone was normal and there was no evidence for pronator drift. There is no focal weakness. Deep tendon reflexes were 2/4 bilaterally in both upper and lower extremities. The plantar reflex was flexor bilaterally. There was no evidence for postural or action tremor. There was no dysmetria found on [id number] testing. There was no evidence for sensory deficits on examination of light touch, pin prick. There was no extinction of bilateral simultaneous stimulus or evidence for stereognosis. The gait examination was normal including tandem gait. 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 She has been told in the past that she may have a frontal lobe epilepsy. It is true that this EEG findings could be seen in frontal lobe epilepsy and we discussed getting an updated MRI scan of the brain to look for subtle lesions. Patient had a GTC in the setting of physical exertion. Increased stress level with raising her son. Reports AED compliance. Denies side effects. Discussed adding Clobazam 5 mg QHS for additional seizure control per Dr. Dumont's place at last visit. Patient agrees with plan. PLAN: -Lab: CBC, CMP, zonisamide, and lamotrigine levels -PSG order placed per Dr. Dumont due to somnolence to r/o COCO: patient would like to think about it. -Continue zonisamide of 300mg at night and Lamotrigine to 200mg in AM and 400mg in PM: Rx e-scripted -Start Onfi 5mg at bedtime: Paper Rx given -RTC in [address] Dumont -The following issues were discussed with the patient: no bathing, no swimming unsupervised, no driving, no use of heavy machinery, no use of sharp moving objects, avoid heights and risks related to continued seizures -Risks, benefits, side effects, and alternatives to use of Lamotrigine, Zonisimide and Onfi were discussed with the patient. The patient agreed with the plan as outlined above. -A total of 25 minutes was spent during the visit with greater than 50% of the time spent counseling and coordinating care of the above plan as well as answering the patient's numerous questions. Nancy Mattson APRN.YOMAIRA 11/17/17 YAQUELIN Observed: 11/17/2017 Status: COMPLETED Source: [place] 1:40 PM [facility] REPOSITORY Office Visit ([id number]) DOUG MORIN ([id number]) 1990 F Date Time Provider Department 11/17/17 1:40 PM NANCY MATTSON (YOMAIRA) [id number] During your visit today, we recorded the following information about you: Pulse Blood pressure Weight Height 76/minute 112/62 55.8 kg 1.6 m Nancy Mattson APRN.CNP 11/18/2017 2:05 AM Signed [facility] Patient Name: Doug Morin Date of : 1990 CLINIC NOTE - FOLLOW UP VISIT CHIEF COMPLAINT: Patient presents with: Follow Up: Last seizure was on 11/03/17 The patient has returned for follow up in order to discuss the medical management of her epilepsy. PRESENT ILLNESS: This is a 27 year old right-handed female whose history and EEG are suggestive for a diagnosis of a generalized (genetic) epilepsy. Established patient of Dr. Dumont and last seen by him on 08/26/2016. She is here by herself for follow up. At the last visit, LTG was adjusted for her to receive more at night in hopes that it protects her in the morning. She had a seizure on 11/03. Patient recently traveled to [place] with her friend. Worked 2 straight 8 hour days after trip. Patient felt exhausted then next day had a GTC. She was sitting on a couch and fell on her face with whole body convulsions. LOC, BL TB. No UI. She was taken to ED and LTG level was checked that was 4.5. Prior GTC 12/2016. Known triggers are physical exertion, sleep deprivation, and stress. c/o increased stress level with raising her 6 year old son. Denies acute medical issues. Doing well overall. Current AEDs: ZNS 300 QHS LTG ER 200/400 Last visit note: On August 03 and August 17, she dropped her coffee and was disoriented. She has problems with word finding difficulties or knowing were she was. Both times were at work, she fell with both episodes. She fell on to her left knee. It took her a couple of hours to get back to baseline. With the last episode she lost memory for periods of her seizure. It took her all day to get back to baseline with the last seizure and slept all day. She also has a pressure on the back since the last seizure on August 17. She thinks it is a heavy sensation (not pain); she has no nausea or vomiting. She has been tired for the last couple of months. Prior to August 03 she did not have any seizures since January 2016. There has been no stressors, missed medications, no fevers, no alcohol use. She has had problems with sleep; it takes her a long time for her to get to sleep. She does doze off at work. She does not feel rested when she wake up feeling rested. She does not have a bed partner and has not been told that she snores. She drinks about one coffee a day; she does not drink cafienated soda. Both time the seizures occurred at 5:30am. She is take zonisamide 300mg daily (she had problems with double vision with the 400mg dose) and Lamictal XR 300mg twice daily. She has only had double vision twice some time around afternoon lasting a couple of hours. Seizure History: She is having double vision and more headaches. Her arms feels icy hot and heavy. She has two seizure types: generalized tonic-clonic and another which is likely tonic seizures which she calls tremors so as not to confuse them with her GTCs which she calls her seizures. She describes her tremors as episodes in which she snorts, curls up, and brief stiffen. These are very brief. Afterwards she has a headache and muscle soreness. She can have 1-2 of these episodes in a week then can go 2 months without any. She had grand mal seizures in the past with the last one being being three years. She had an episode of convulsive status epilepticus while she was around 2 years ago. She was air flighted from [place] to [facility] to [facility]. She is currently taking Lamictal XR 300mg twice daily and Vimpat 50mg in AM 100mg in PM. The Vimpat was lowered 2-3 months after her baby was delivered (February 2012). Her double vision improved but in the past 8 months it is worse and more frequent. She has not had any weight changes or new medications. The first clear seizure was at age of 11 years. There were some members of the family who felt that she may staring 11-12 years of age but her mother is not convinced it. She gets two migraine headaches per week. History from Dr. Carmella Fofana's Note from November 06, 2013: She has history of epilepsy since childhood. She is accompanied with her mother. She was following with Dr. Shelton Benitez at [facility]. 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 She has moved to [place] from [place] in 2013. Her last severe episode of seizures was over 2 yrs ago. She had status epilepticus, clonic tonic seizures during at 7 month gestation for over 8-10 hrs. She was air lifted to [facility]. Her seizures were eventually controlled with medication. She delivered her baby at term w/o any complications. She was on combination of Lamictal and low dose Depakote during her . No grand mal seizures since that time. She had severe reaction to Keppra in past. She had hallucinations and depression. She was on it at age 14. She had high liver enzymes on Depakote in past. She went off Depakote 2 yrs ago. She had an episode 2 weeks ago which consisted of patient posturing/?myoclonic jerking, snorting for seconds. This occurred early in morning. She has been having these episodes infrequently. Onset 2 years. She can have an episode once every few weeks to few months on average. No auras when this occurs. Her last EMU testing was about 2 yrs ago. Early in morning she has most of her seizures. She started having staring spells approximately age 9 to 10 yrs old. She had her first grand mal seizure at age 11. She had severe head trauma while playing in 5th grade, 10 years. Family hx of seizures in aunt. Her aunt seizures are secondary to hx of head trauma. Seizure duration is typically 3-5 minutes. The last generalized motor seizure occurred during ~2 yrs ago-tonic clonic seizure. There is history of tongue biting and no history of urine incontinence. The generalized motor seizures occur typically early in morning. The longest seizure- free interval has been 5 yrs. There is history of status epilepticus during 8 hrs, GTC-grand mal 5 minutes (high school). There is a history of physical injury from seizures, which includes facial injury/bruising. Postictal symptoms include --sleeps afterwards; not sure how long, can last 24 hrs. 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 Driving status: Not driving Mood status: She is stressed living by herself and with her four year old son. Memory status: Usually okay Sleep: daytime fatigue. RISK FACTORS: Brain Tumor N NETWORK DEVELOPER Infections N Developmental Delay N Family history of epilepsy Y Febrile Seizure N Complications Y Stroke N Traumatic Brain Injury Y CURRENT MEDICATIONS: zonisamide (ZONEGRAN) 100 mg capsule Take 3 capsules by mouth once daily. lamoTRIgine ER (LAMICTAL XR) 100 mg 24 hr tablet Take two (2.0) in AM and four(4.0) tablets at bedtime cyclobenzaprine (FLEXERIL) 5 mg tablet Take 1 tablet by mouth three times daily as needed for Muscle Spasm. acetaminophen (TYLENOL) 325 mg tablet Take 650 mg by mouth every 6 hours as needed. Magnesium 250 mg tab Take 500 mg by mouth once daily. INTRAUTERINE DEVICE, IUD, INTRAUTERINE by INTRAUTERINE route once daily. The patient's side effects to the current medications are double vision, headaches, arms feeling icy/hot. PRIOR ANTICONVULSANT HISTORY: Depakote-- elevated LFT; Keppra- suicide ideations and hallucination; Lamictal; Vimpat PAST MEDICAL HISTORY Diagnosis Date - Abnormal Pap smear of cervix with HPV- h/o LEEP - Depression resolved - Epilepsy (HCC) - Family history of epilepsy Aunt with traumatic epilepsy - Migraine - disorder She was two weeks late; but no complication - Pleurisy recurrent. 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 01/15/2014: Congestive heart failure ([facility]) 01/15/2014: Coronary artery disease 01/15/2014: Developmental delay 01/15/2014: Diabetes ([facility]) 01/15/2014: Febrile seizure ([facility]) 01/15/2014: Hypertension 01/15/2014: Hypothyroidism 01/15/2014: Obstructive sleep apnea 01/15/2014: Steroid long-term use 01/15/2014: Stroke ([facility]) 01/15/2014: Substance abuse ([facility]) PAST SURGICAL HISTORY Procedure Laterality Date - APPENDECTOMY - LEEP PROCEDURE ([employer] DE[employer])_*FL FAMILY HISTORY Problem Relation Age of Onset - Multiple Sclerosis Sister - Seizures Maternal Aunt Traumatic epilepsy - Headache Mother - Headache Maternal Grandfather Social History Marital status: Single Spouse name: Years of education: 14 Number of children: 1 Occupational History 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 Lives with mother father and son. REVIEW OF SYSTEMS: CONST: no change in weight; no lightheadedness; no fevers, chills, or night sweats. There have been no headaches. EYES: no double vision; no blurred vision ENT: no change in hearing; no trouble swallowing NEURO: no focal weakness or sensory loss CARD: no chest pain or palpitations, no leg edema RESP: no shortness of breath or cough : no urinary urgency, frequency, or hematuria GI: no abdominal pain or change in bowel habits MUSC: no joint pain or swelling, no muscle or back pain PSYCH: no change in mood or sleep patterns HEME: no bruising, bleeding, or swollen glands. All other organ systems are negative. GENERAL EXAMINATION: Blood pressure 112/62, pulse 76, height 160 cm (5' 3), weight 55.8 kg (123 lb). General Appearance: This is a average built female. HEENT: This is no facial dysmorphic features. SKIN: There is no stigmata for neurocutaneous disorders. Extremities: There is no clubbing, cyanosis, pallor or edema. NEUROLOGICAL EXAMINATION: Alert and oriented times three with normal speech/language and normal higher cognitive function The pupils were 4 mm symmetrical, round, and reactive to light and accommodation. The visual moore were intact to confrontation. The ocular ductions were full with no evidence for gaze evoked nystagmus. There was no evidence for facial asymmetry. Muscle tone was normal and there was no evidence for pronator drift. There is no focal weakness. Deep tendon reflexes were 2/4 bilaterally in both upper and lower extremities. The plantar reflex was flexor bilaterally. There was no evidence for postural or action tremor. There was no dysmetria found on hqrgyr-ndes-oyzixe testing. There was no evidence for sensory deficits on examination of light touch, pin prick. There was no extinction of bilateral simultaneous stimulus or evidence for stereognosis. The gait examination was normal including tandem gait. 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 She has been told in the past that she may have a frontal lobe epilepsy. It is true that this EEG findings could be seen in frontal lobe epilepsy and we discussed getting an updated MRI scan of the brain to look for subtle lesions. Patient had a GTC in the setting of physical exertion. Increased stress level with raising her son. Reports AED compliance. Denies side effects. Discussed adding Clobazam 5 mg QHS for additional seizure control per Dr. Dumont's place at last visit. Patient agrees with plan. PLAN: -Lab: CBC, CMP, zonisamide, and lamotrigine levels -PSG order placed per Dr. Dumont due to somnolence to r/o COCO: patient would like to think about it. -Continue zonisamide of 300mg at night and Lamotrigine to 200mg in AM and 400mg in PM: Rx e-scripted -Start Onfi 5mg at bedtime: Paper Rx given -RTC in [address] Dumont -The following issues were discussed with the patient: no bathing, no swimming unsupervised, no driving, no use of heavy machinery, no use of sharp moving objects, avoid heights and risks related to continued seizures -Risks, benefits, side effects, and alternatives to use of Lamotrigine, Zonisimide and Onfi were discussed with the patient. The patient agreed with the plan as outlined above. -A total of 25 minutes was spent during the visit with greater than 50% of the time spent counseling and coordinating care of the above plan as well as answering the patient's numerous questions. Nancy Mattson APRN.YOMAIRA 11/17/17 Nancy Mattson APRN.CNP 11/17/2017 3:15 PM Signed Thank you for choosing the [facility]! ? PHILIP Krishnamurthy MSN Epilepsy Provider [facility] ? Office Appt: [phone] X [phone] ? Here is a review of some of the things we discussed in clinic today. ? What is epilepsy? Epilepsy is a disorder of the brain in which you are more likely to have epileptic seizures. By definition, you have to have at least 2 unprovoked seizures more than 24 hours apart OR one seizure + a test result (usually on MRI or EEG abnormality) which suggest you are at a higher risk for seizures OR a clear epilepsy syndrome ? Seizure Precautions: -No driving per [place] state driving law. -No swimming or bathing alone or unless someone is present who can physically pull you out of the water should a seizure occur. Do not swim in a mauricio/ocean without a life jacket. -Avoid standing over an open flame and stove. -Use dangerous household appliances with caution (iron, curling iron, sharp objects, etc) and ideally with supervision. -No using heavy machinery. -No climbing tall heights such as ladders. -Wear a helmet when riding a bike. -Always consider where you may land if you fall. -You should not perform any activity where sudden loss of awareness or consciousness would put you or those around you in, this may include certain sports or exercise. ? Safety: -Explain precautions and first aid to your family and friends as well as employers or schools. -Carry a card with your list of medications. -Consider wearing a medical ID bracelet. -Do not lock doors. -Do not use electrical appliances near water. -Try to use electrical rather than gas appliances when possible and use the back burners. -Avoid sleeping on stomach. -Avoid situations in which you are the only adult present to care for young children. Do not lift infants about ground level or carry infants up and down stairs. -Avoid activities that carry a high risk of sustaining head trauma such as contact sports (football, boxing, etc). ? !Please take your seizure medication as prescribed. Call my office before modifying the dose or stopping a medication. ? Avoid Triggers: -Missing doses of your medication or any abrupt medications changes. Do not discontinue seizure medication on your own as this may lead to a severe seizure. Please contact the office for refills 2 weeks before your medication refill expires. -Emotional or physical stress such as an acute illness or intense activity -Sleep deprivation or change in sleeping patterns -Alcohol use (both an excessive amount or suddenly stopping after chronic use) -Substance abuse or illegal drug use -Bright or flashing lights (only for certain types of epilepsy) -Hormonal changes such as occur with menstrual cycles -Some medications make it more likely to have seizures, especially tramadol, bupropion (Wellbutrin), benadryl, lithium, and some antibiotics. Always check with your physician before starting a new medication. ? How to instruct others (family, friends, co-workeres) who may witness a seizure to help you: ? During generalized seizures with shaking or stiffening of whole body: -Do your best to stay calm and look at the clock to time the episode. -If there is a warning sign or feeling, get to a safe place (lowered down to the floor) quickly. -Look around to ensure nothing close that can cause injury. -If available, put a soft object such as a pillow or sweatshirt under the head -Loosen any tight clothing around the neck. -If possible, gently roll patient onto their side so any saliva or vomit will easily drain out of the mouth. -Do not restrain or hold down the patient as this is more likely to cause injury. -Do not put anything into the mouth. Do not put water on the face. -Stay with the person until recovered back to normal. It is normal to be very sleepy, tired and confused for minutes to a few hours, as well as to complain of headache and vomit. ? During seizures of staring or confusion: -Do not restrain. If walking around, gently steer away from any danger. -Remove any dangerous objects (knives, pencils, hot beverages) from hands. -Reassure the patient. -Stay with patient until fully recovered. ? Call if: -Any injury was sustained which requires medical attention -Seizure lasts longer than 5 minutes -Patient has back to back seizures -Patient has difficulty breathing -Patient is not returning to normal -Patient is or diabetic -If patient has been ill or had a fever before the seizure -If patient is combative or agitated after a seizure and is dangerous to themselves or others ? There is no need to call 9-1-1 if the seizure is short, without injury, typical for your seizures, and you return to baseline without further event. However, you should still notify my office of the breakthrough seizure for further non-urgent management, especially if the number or severity of seizures is more than baseline. ? Seizure tracking: We ask that you keep a record of the seizures that are occurring. Please do this in the way that works the best for you. We would like to know the number of seizures per day including the date of the seizures, the length of time the seizure lasts, and the intensity of the seizure. If this is a different type of seizure than what is normal, please document a description. It is also helpful for you to document other things which may affect your seizures such as medication changes, your period, missed doses of medications, or certain stressors. ? Also, videos are always helpful. If the seizures are changing in any way, please try to record them on video if possible. This can be done on your cell phone or via a video recorder. This will help when we meet again. ? For some information of keeping track of the seizures, you can visit the web site: [email or web address] ? You can also download [facility]'s MyEpilepsy bettina through the [employer] store. This free educational interactive iPad tool allows you and your physician to effectively manage your epilepsy. The interactive bettina gives you the ability to: ? Keep a daily record of your seizure activity ? Provide a record and reminder of all medications ? Help manage appointments as well as track progress ? Educational information about epilepsy, treatment options, and how to manage seizures. ? Helpful Websites: [email or web address] [place] [email or web address] and [email or web address].com Referring Provider: SELF [[id number]] Allergies As of Date: 11/17/2017 Noted Allergy Reaction KEPPRA (LEVETIRACETAM) 11/06/2013 1 - Mental Status Change 14 - Other: See Comments Comments: Hallucinations, suicidal thoughts PENICILLINS 11/06/2013 2 - Rash Date Reviewed: 11/17/2017 Reviewed by: Lion Blake Ma - Fully Assessed Reason for Visit: Follow Up [171] Cmt: Last seizure was on 11/03/17 Reason For Visit History Recorded Primary Visit Diagnosis:Somnolence [R40.0] Other Visit Diagnosis:Generalized convulsive epilepsy (HCC) [G40.309] Order(s):POLYSOMNOGRAM (PSG)/HOME SLEEP APNEA TESTING (HSAT) [1639838] Order #: [id number] FUTURE cloBAZam (ONFI) 10 mg tab tabletTake 0.5 tablets by mouth daily at bedtime for 90 days.Disp: 45 tabletRfl: 2 lamoTRIgine ER (LAMICTAL XR) 100 mg 24 hr tabletTake two (2.0) in AM and four(4.0) tablets at bedtimeDisp: 540 tabletRfl: 1 zonisamide (ZONEGRAN) 100 mg capsuleTake 3 capsules by mouth once daily.Disp: 270 capsuleRfl: 1 ZONISAMIDE [SQZONIS] Order #: [id number] FUTURE LAMOTRIGINE [SQLMTR] Order #: [id number] FUTURE Prescriptions as of 11/17/2017 Sig: CLOBAZAM 10 MG TABLET Take 0.5 tablets by mouth ly* LAMOTRIGINE ER 100 MG TABLET,* Take two (2.0) in AM and four* ZONISAMIDE 100 MG CAPSULE Take 3 capsules by mouth once* CYCLOBENZAPRINE 5 MG TABLET Take 1 tablet by mouth three * Patient not taking: Reported on 11/17/2017 ACETAMINOPHEN 325 MG TABLET Take 650 mg by mouth every 6 * MAGNESIUM 250 MG TABLET Take 500 mg by mouth once ly* INTRAUTERINE DEVICE (IUD) INT* by INTRAUTERINE route once da* Medication notes this encounter CYCLOBENZAPRINE 5 MG TABLET >> Lion Blake Ma 11/17/2017 2:41 PM >> LION BLAKE MA Wed Nov 17, 2017 2:41 PM Problem List As Of Date 11/17/2017 Noted Resolved Partial epilepsy with intractable epilepsy (HCC*INVALID FOR*04/20/2014 Generalized convulsive epilepsy (HCC) [G40.309] INVALID FOR* Hand weakness [R29.898] INVALID FOR* Neck pain [M54.2] INVALID FOR* Other instructions from your clinician: Thank you for choosing the [facility]! ? PHILIP Krishnamurthy MSN Epilepsy Provider [facility] ? Office Appt: [phone] X [phone] ? Here is a review of some of the things we discussed in clinic today. ? What is epilepsy? Epilepsy is a disorder of the brain in which you are more likely to have epileptic seizures. By definition, you have to have at least 2 unprovoked seizures more than 24 hours apart OR one seizure + a test result (usually on MRI or EEG abnormality) which suggest you are at a higher risk for seizures OR a clear epilepsy syndrome ? Seizure Precautions: -No driving per [place] state driving law. -No swimming or bathing alone or unless someone is present who can physically pull you out of the water should a seizure occur. Do not swim in a mauricio/ocean without a life jacket. -Avoid standing over an open flame and stove. -Use dangerous household appliances with caution (iron, curling iron, sharp objects, etc) and ideally with supervision. -No using heavy machinery. -No climbing tall heights such as ladders. -Wear a helmet when riding a bike. -Always consider where you may land if you fall. -You should not perform any activity where sudden loss of awareness or consciousness would put you or those around you in, this may include certain sports or exercise. ? Safety: -Explain precautions and first aid to your family and friends as well as employers or schools. -Carry a card with your list of medications. -Consider wearing a medical ID bracelet. -Do not lock doors. -Do not use electrical appliances near water. -Try to use electrical rather than gas appliances when possible and use the back burners. -Avoid sleeping on stomach. -Avoid situations in which you are the only adult present to care for young children. Do not lift infants about ground level or carry infants up and down stairs. -Avoid activities that carry a high risk of sustaining head trauma such as contact sports (football, boxing, etc). ? !Please take your seizure medication as prescribed. Call my office before modifying the dose or stopping a medication. ? Avoid Triggers: -Missing doses of your medication or any abrupt medications changes. Do not discontinue seizure medication on your own as this may lead to a severe seizure. Please contact the office for refills 2 weeks before your medication refill expires. -Emotional or physical stress such as an acute illness or intense activity -Sleep deprivation or change in sleeping patterns -Alcohol use (both an excessive amount or suddenly stopping after chronic use) -Substance abuse or illegal drug use -Bright or flashing lights (only for certain types of epilepsy) -Hormonal changes such as occur with menstrual cycles -Some medications make it more likely to have seizures, especially tramadol, bupropion (Wellbutrin), benadryl, lithium, and some antibiotics. Always check with your physician before starting a new medication. ? How to instruct others (family, friends, co-workeres) who may witness a seizure to help you: ? During generalized seizures with shaking or stiffening of whole body: -Do your best to stay calm and look at the clock to time the episode. -If there is a warning sign or feeling, get to a safe place (lowered down to the floor) quickly. -Look around to ensure nothing close that can cause injury. -If available, put a soft object such as a pillow or sweatshirt under the head -Loosen any tight clothing around the neck. -If possible, gently roll patient onto their side so any saliva or vomit will easily drain out of the mouth. -Do not restrain or hold down the patient as this is more likely to cause injury. -Do not put anything into the mouth. Do not put water on the face. -Stay with the person until recovered back to normal. It is normal to be very sleepy, tired and confused for minutes to a few hours, as well as to complain of headache and vomit. ? During seizures of staring or confusion: -Do not restrain. If walking around, gently steer away from any danger. -Remove any dangerous objects (knives, pencils, hot beverages) from hands. -Reassure the patient. -Stay with patient until fully recovered. ? Call if: -Any injury was sustained which requires medical attention -Seizure lasts longer than 5 minutes -Patient has back to back seizures -Patient has difficulty breathing -Patient is not returning to normal -Patient is or diabetic -If patient has been ill or had a fever before the seizure -If patient is combative or agitated after a seizure and is dangerous to themselves or others ? There is no need to call 9-1-1 if the seizure is short, without injury, typical for your seizures, and you return to baseline without further event. However, you should still notify my office of the breakthrough seizure for further non-urgent management, especially if the number or severity of seizures is more than baseline. ? Seizure tracking: We ask that you keep a record of the seizures that are occurring. Please do this in the way that works the best for you. We would like to know the number of seizures per day including the date of the seizures, the length of time the seizure lasts, and the intensity of the seizure. If this is a different type of seizure than what is normal, please document a description. It is also helpful for you to document other things which may affect your seizures such as medication changes, your period, missed doses of medications, or certain stressors. ? Also, videos are always helpful. If the seizures are changing in any way, please try to record them on video if possible. This can be done on your cell phone or via a video recorder. This will help when we meet again. ? For some information of keeping track of the seizures, you can visit the web site: https://www.seizuretracker.com/ ? You can also download [facility]'s MyEpilepsy bettina through the [employer] bettina store. This free educational interactive iPad tool allows you and your physician to effectively manage your epilepsy. The interactive bettina gives you the ability to: ? Keep a daily record of your seizure activity ? Provide a record and reminder of all medications ? Help manage appointments as well as track progress ? Educational information about epilepsy, treatment options, and how to manage seizures. ? Helpful Websites: [email or web address] [place] [email or web address] and [email or web address] Prescriptions ordered this encounter Disp Refills Start End CLOBAZAM 10 MG TABLET 45 t* 2 11/17/2017 02/15/2018 Class: Print RX Route: ORAL Sig: Take 0.5 tablets by mouth daily at bedtime for 90 days. LAMOTRIGINE ER 100 MG TABLET,EXTENDE* 540 * 1 11/17/2017 Sig: Take two (2.0) in AM and four(4.0) tablets at bedtime ZONISAMIDE 100 MG CAPSULE 270 * 1 11/17/2017 Route: ORAL Sig: Take 3 capsules by mouth once daily. Medications Discontinued During This Encounter lamoTRIgine ER (LAMICTAL XR) 100 mg * 540 * 3 11/19/2016 11/17/2017 Sig: Take two (2.0) in AM and four(4.0) tablets at bedtime Disc: Reason for discontinue is not on file. zonisamide (ZONEGRAN) 100 mg capsule 270 * 3 02/18/2017 11/17/2017 Route: ORAL Sig: Take 3 capsules by mouth once daily. Disc: Reason for discontinue is not on file. Disposition: Return in about 3 months (around 02/17/2018). Follow-up and Disposition History Recorded Encounter Status:Closed by NANCY MATTSON CNP on 11/18/17 EMERGENCY DEPARTMENT Observed: 11/11/2017 Status: F Source: [place] SUMMARY 11:17 AM [facility] REPOSITORY [facility] Medical Records Department [address] [address] Emergency Department Summary 11/10/17 0905 MR#: [id number] Acct: [id number] Name: DOUG MORIN Rep #: [id number] : 1990 27 From: Efrain Olguin MD PCP: Lina Candelaria DO Status: DEP ER - ER Visit Summary Date of Service: 11/10/17 Chief Complaint: Headache History of Present Illness: The patient is a 27 F who sees Macy Dumont, her neurologist at [facility] for seizures. She reports that she has a seizure disorder and last had a seizure November 03. She fell off the couch and hit her head. States that since this time she has had a headache. Is 9 out of 10 in severity and is been that way ever since the seizure. Is an aching pain in the occipital region. She reports that she is having difficulty remembering things and has been forgetting the day of the week for example. States that she was sent here today from work because she was acting different than usual and was not doing her typical routine. Patient reports feeling nauseated and that her brain feels heavy and jiggly. Patient does report that she has been nauseated, but has not vomited. She denies any fever, chills, sore throat, cough. No chest pain or shortness of breath. She has had no abdominal pain, vomiting, diarrhea. No dysuria or frequency. Her last menstrual period was 1 week ago. She denies any rash, numbness, or weakness. Physical Examination: Vitals: Stable. Afebrile. General: Well-nourished and well-developed. Head: Normocephalic atraumatic. Neck: Supple, no lymphadenopathy. No JVD. Nontender. Cardiovascular: Regular rate and rhythm. No murmurs. Respiratory: No respiratory distress. Clear to auscultation bilaterally. Abdominal: Soft, nontender, nondistended, normal bowel sounds. No guarding, rebound, or peritoneal [...] an IV placed. She was given liter bolus normal saline. She was given Toradol, Benadryl, [...] 03, 2017. This note was generated with Conformiq dictation software. It may contain incorrect words, spelling, and punctuation that were not noted in review of the chart prior to signing ED Disposition - Plan for ED Patient: Disposition: Home or Assisted Living Chief Complaint: Dizziness Instructions: ED Concussion Referrals: Lina Candelaria DO [Primary Care Provider] - 1 Week Gerald Gilmore MD [STAFF PHYSICIAN] - 1 Week What to do if you have Problems For any increased pain, shortness of breath, bleeding, nausea or vomiting, chest pain, or any unexpected problems, contact your Primary Care Provider. Call [facility] ([phone]) or report to the closest Emergency Room. Call 911 if necessary. 11/11/17 111 <Electronically signed by Efrain Olguin MD> Date Efrain Olguin MD Cosigner Signature (If Indicated): Date CC: Lina Candelaria DO ,SERUM,HCG QUALI. Collected: Status: F Source: [place] 11/10/2017 8:25 AM [facility] REPOSITORY TYPE CODE TESTS RESULT OUT OF REFERENCE UNITS RANGE LAB L700.6700 =>Qualitative mIU/mL Normal HCG Qual < 1 triggr LAB L700.7000 0-9 Nonpreg Negative Normal HCGSQUAL NEGATIVE Performed By: #### L700.6800 #### [facility] [address] [place], [address] BRAIN/HEAD WITHOUT Observed: 11/10/2017 Status: F Source: [place] CONTRAST 8:19 AM [facility] REPOSITORY [facility] Imaging Services [address] [place] [address] Brain/Head without Contrast MR#: [id number] Acct: [id number] Name: DOUG MORIN Rep #: [id number] : 1990 F 27 From: Mitchel Conrad MD PCP: Lina Candelaria DO Status: REG ER Study: Brain/Head without Contrast Date of Exam: 11/10/17 Exam# [id number] Ordering Dr: Efrain Olguin MD STUDY: CT BRAIN WITHOUT CONTRAST REASON [...] Mitchel Conrad MD at 9:17 EDT Tel [phone], Service support , CC: Lina Candelaria DO; Efrain Olguin MD Thread Marker: Signed EMERGENCY DEPARTMENT Observed: 11/03/2017 Status: F Source: [place] SUMMARY 4:40 PM [facility] REPOSITORY [facility] Medical Records Department [address] [place] [address] Emergency Department Summary 11/03/17 1449 MR#: [id number] Acct: [id number] Name: MIKELDOUG E Rep #: [id number] : 1990 27 From: Hill Banks MD PCP: Lina Candelaria DO Status: DEP ER - ER Visit Summary Date of Service: 11/03/17 Chief Complaint: Seizure History of Present Illness: The patient is a 27 F presenting for evaluation secondary to a seizure. Patient has a underlying history of seizure disorder and is on Zonegran and Lamictal. She has had a significant amount of increased activity recently and actually traveled to [place] to [place]. She has been relatively fatigued recently, but states that she has not been missing any doses of her medications. Patient apparently had a tonic-clonic seizure today that [...] atraumatic Eyes: Pupils equal round and reactive bilaterally, extra occular motion intact bialterally ENT: Moist mucous membranes, evidence of superficial tongue laceration into the left lateral tongue Neck: Supple, no lymphadenopathy, no JVD, no meningismus CVS: Heart regular rate and rhythm, no murmurs, rubs or gallops, radial pulses 2+ bilaterally Resp: Respirations nondistressed, lung sounds clear bilaterally Abdomen: Soft, nontender, nondistended, no palpable masses, normal bowel sounds Back: Nontender Extremities: Nontender, atraumatic, active full range of motion, no peripheral edema Skin: warm, no rashes, no petechia Neuro: Alert and oriented x 4, CN 2-12 intact, no lateralizing neurological defecits Psyc: Normal affect Test Results: CBC unremarkable, chemistry unremarkable, magnesium and phosphorus unremarkable Lamictal level is pending Emergency Department Course and Treatment: Patient presented for evaluation secondary to a seizure, patient's laboratory workup was found to be unremarkable. She had full return to baseline while in the emergency department. Her mother was concerned because she was having some hand wringing. She was given Ativan and this seemed to improve. I had a discussion with the covering neurologist for the patient's neurologist at the [facility], they recommended outpatient follow-up. Lamictal level is still pending. At this time the patient is safe for discharge to follow-up with neurology as an outpatient. Disposition: Discharge Impression: 1. Breakthrough seizure This note was generated with Conformiq dictation software. It may contain incorrect words, spelling, and punctuation that were not noted in review of the chart prior to signing ED Disposition - Plan for ED Patient: Disposition: Home or Assisted Living Chief Complaint: Seizure Diagnosis: Breakthrough seizure Instructions: ED Seizure Recurrent Referrals: Ashly Morgan MD [STAFF PHYSICIAN] - As Needed Additional Instructions: Followup with Dr. Melita GREEN What to do if you have Problems For any increased pain, shortness of breath, bleeding, nausea or vomiting, chest pain, or any unexpected problems, contact your Primary Care Provider. Call [facility] ([phone]) or report to the closest Emergency Room. Call 911 if necessary. 11/03/17 1640 <Electronically signed by Hill Banks MD> Date Hill Banks MD Cosigner Signature (If Indicated): Date CC: Lina Candelaria DO CBC W/DIFF, AUTOMATED Collected: 11/03/2017 Status: F Source: [place] 1:10 PM [facility] REPOSITORY TYPE CODE TESTS RESULT OUT OF RANGE REFERENCE UNITS LAB L100.1000 4.4-11.0 K/mm3 Normal WBC 6.7 LAB L100.1200 4.2-5.4 M/mm3 Normal RBC 4.54 LAB L100.1300 12.0-15.0 g/dl Normal HGB 12.2 LAB L100.1400 37-47 % Normal HCT 37.8 LAB L100.1500 81-99 fL Normal MCV 83.3 LAB L100.1600 27.0-32.0 pg Low MCH 26.9 LAB L100.1700 32-36 g/gl Normal MCHC 32.3 LAB L100.1810 11.6-14.6 % Normal RDW CV 13.6 LAB L100.1820 35.1-43.9 fl Normal RDW SD 41.5 LAB L100.1900 150-450 K/mm3 Normal PLT 225 LAB L100.2000 6.2-12.0 fl Normal MPV 9.3 LAB L100.2100 47-70 % Normal NEUT% 68.7 LAB L100.2200 19-41 % Normal LY% 22.4 LAB L100.2300 0-10 % Normal MONO% 6.8 LAB L100.2400 0-5 % Normal EO% 1.8 LAB L100.2500 0-1 % Normal BASO% 0.3 LAB L100.2550 0.0-0.9 % Normal IM GRAN % 0.000 Result Comment: IG% - Immature Granulocytes (promyelocytes, myelocytes and metamyelocytes) > 1% indicates that a LEFT SHIFT is Present. LAB L100.2620 2.0-7.7 X10 3/uL Normal Absolute Neut 4.6 LAB L100.2720 0.83-4.51 X10 3/ul Normal Absolute Lymph 1.51 Performed By: #### L100.0100 #### [facility] [address] [place], [address] PHOSPHORUS Collected: 11/03/2017 Status: F Source: [place] 1:10 PM [facility] REPOSITORY TYPE CODE TESTS RESULT OUT OF RANGE REFERENCE UNITS LAB L501.2300 2.5-4.9 mg/dL Normal PHOS 2.7 Performed By: #### L501.2300 #### [facility] [address] [place], [address] BASIC METABOLIC Collected: 11/03/2017 Status: F Source: [place] PROFILE (BMP) 1:10 PM [facility] REPOSITORY TYPE CODE TESTS RESULT OUT OF RANGE REFERENCE UNITS LAB L501.0100 74-106 mg/dL Normal GLU 84 Result Comment: Please note revised GLUCOSE reference range effective 2017. LAB L501.1000 7-18 mg/dL Normal BUN 11 LAB L501.1100 0.55-1.02 mg/dL Normal CREAT,SERUM 0.74 Result Comment: The validity of the calculated GFR AND GFRAA in patients over 70 years has not been determined. Clinical correlation is essential. LAB L501.1110 >60 mL/min Normal EST GFR 98 Result Comment: Non- GFR Calc LAB L501.1115 >60 mL/min Normal EST GFR - AA 119 Result Comment: GFR Calc LAB L501.1255 ml/min Normal Estimated CRCL 92.79 LAB L501.1300 10-20 RATIO Normal BUN/CRE 14.8 LAB L501.2200 8.5-10 mg/dL Normal .1 CA 8.6 LAB L501.5300 136-14 mmol/L Normal 5 NA 142 LAB L501.5600 3.5-5. mmol/L Normal 1 K 3.6 LAB L501.5900 98-107 mmol/L High CL 111 LAB L501.6100 21.0-3 mmol/L Normal 2.0 CO2 22.0 LAB L501.6200 5-15 Normal GAP 9 Performed By: #### L500.2500, L501.5200 #### [facility] [address] [place], [address] MAGNESIUM Collected: 11/03/2017 Status: F Source: [place] 1:10 PM [facility] REPOSITORY TYPE CODE TESTS RESULT OUT OF RANGE REFERENCE UNITS LAB L501.5200 1.6-2.6 mg/dL Normal MG 1.9 Performed By: #### L500.2500, L501.5200 #### [facility] [address] [place], [address] LAMOTRIGINE (LAMICTAL) Collected: 11/03/2017 Status: F Source: [facility] 1:10 PM [facility] REPOSITORY TYPE CODE TESTS RESULT OUT OF RANGE REFERENCE UNITS LAB L3300.4400 2.0-20.0 ug/mL Normal LAMOTRIG 4.5 [id number] Result Comment: Detection Limit = 1.0 Performed at: - [facility] [id number] [place] Orientator: Oscar Lynn MD, Phone: [phone] Performed By: #### L3300.4400 #### [facility] (refer to report for specific site) refer to report for address and phone number PROGRESS Observed: 09/22/2017 Status: COMPLETED Source: [place] 5:47 PM [facility] REPOSIT[facility] HNO ID: [id number] Author: Radha Greer (Pa) Service: (none) Author Type: Physician [place] Type: Progress Notes Filed: 09/22/2017 5:54 PM Note Text: Subjective HPI Pt presents with facial swelling. She states in July 2017 she had left sided facial swelling and was seen in an Ed in [place]. She was treated with clindamycin and it had improved. She did follow up with her pcp but it had resolved at that point. She started feeling like her face was starting to swell again in the past day and was concerned it was coming back so she came in for evaluation. She denies any dental pain and has seen a dentist in the past year. She denies fever or chills. Review of Systems Constitutional: Negative. HENT: Facial swelling Eyes: Negative. Respiratory: Negative. Cardiovascular: Negative. Gastrointestinal: Negative. Genitourinary: Negative. Musculoskeletal: Negative. Skin: Negative. All other systems reviewed and are negative. PAST MEDICAL HISTORY Diagnosis Date - Abnormal Pap smear of cervix with HPV- h/o LEEP - Depression resolved - Epilepsy (HCC) - Family history of epilepsy Aunt with traumatic epilepsy - Migraine - disorder She was two weeks late; but no complication - Pleurisy recurrent. - Traumatic brain injury (HCC) ~ 9 years of age Fell off the [employer]; lost consciousness 3-5 minutes Current Outpatient Prescriptions: zonisamide (ZONEGRAN) 100 mg capsule Take 3 capsules by mouth once daily. Disp: 270 capsule Rfl: 3 lamoTRIgine ER (LAMICTAL XR) 100 mg 24 hr tablet Take two (2.0) in AM and four(4.0) tablets at bedtime Disp: 540 tablet Rfl: 3 acetaminophen (TYLENOL) 325 mg tablet Take 650 mg by mouth every 6 hours as needed. Disp: Rfl: Magnesium 250 mg tab Take 500 mg by mouth once daily. Disp: Rfl: clindamycin (CLEOCIN) 150 mg capsule Take 2 capsules by mouth three times daily for 10 days. Disp: 60 capsule Rfl: 0 cyclobenzaprine (FLEXERIL) 5 mg tablet Take 1 tablet by mouth three times daily as needed for Muscle Spasm. Disp: 15 tablet Rfl: 0 INTRAUTERINE DEVICE, IUD, INTRAUTERINE by INTRAUTERINE route once daily. Disp: Rfl: No current facility-administered medications for this visit. PAST SURGICAL HISTORY Procedure Laterality Date - APPENDECTOMY - LEEP PROCEDURE ([employer] DE[employer])_*FL FAMILY HISTORY Problem Relation Age of Onset - Multiple Sclerosis Sister - Seizures Maternal Aunt Traumatic epilepsy - Headache Mother - Headache Maternal Grandfather Social History Substance Use Topics - Smoking status: Never Smoker - Smokeless tobacco: Never Used - Alcohol use No BP 112/80 Pulse 86 Temp 36.7 ?C (98 ?F) (Left Tympanic) Resp 18 Wt 61.2 kg (135 lb) BMI 23.91 kg/m? Objective Physical Exam Constitutional: She is oriented to person, place, and time and well-developed, well-nourished, and in no distress. HENT: Head: Normocephalic and atraumatic. Pt has mild facial swelling over the medial lower zygomatic arch area and adjacent to the nose. Mild erythema. She is tender to palpation . No abscess palpated. Pt has good dentition on mouth exam. No gum swelling. No trismus. Neck: Normal range of motion. Cardiovascular: Normal rate, regular rhythm and normal heart sounds. Pulmonary/Chest: Effort normal and breath sounds normal. Neurological: She is alert and oriented to person, place, and time. Skin: Skin is warm and dry. No rash noted. Psychiatric: Affect and judgment normal. Nursing note and vitals reviewed. ASSESSMENT/PLAN: 1. Left facial swelling - ICD9: 784.2, ICD10: R22.0 Likely the start of infection- either cellulitis or from tooth. Will treat with clindamycin and have her closely follow up with her pcp. Discussed with patient concerning symptoms to go to the emergency department or follow up here. Pt agreeable with this plan. Radha Greer PA-C CNOV Observed: 09/22/2017 Status: COMPLETED Source: [place] 5:30 PM [facility] REPOSITORY Office Visit ([facility]) DOUG MORIN ([id number]) 1990 F Date Time Provider Department 09/22/17 5:30 PM RADHA GREER (BRANDON) WSTR During your visit today, we recorded the following information about you: Temperature Pulse Respiration Blood pressure 98 degrees 86/minute 18/minute 112/80 Weight 61.2 kg Radha Greer PA-C 09/22/2017 5:54 PM Signed Subjective HPI Pt presents with facial swelling. She states in July 2017 she had left sided facial swelling and was seen in an Ed in [place]. She was treated with clindamycin and it had improved. She did follow up with her pcp but it had resolved at that point. She started feeling like her face was starting to swell again in the past day and was concerned it was coming back so she came in for evaluation. She denies any dental pain and has seen a dentist in the past year. She denies fever or chills. Review of Systems Constitutional: Negative. HENT: Facial swelling Eyes: Negative. Respiratory: Negative. Cardiovascular: Negative. Gastrointestinal: Negative. Genitourinary: Negative. Musculoskeletal: Negative. Skin: Negative. All other systems reviewed and are negative. PAST MEDICAL HISTORY Diagnosis Date - Abnormal Pap smear of cervix with HPV- h/o LEEP - Depression resolved - Epilepsy (HCC) - Family history of epilepsy Aunt with traumatic epilepsy - Migraine - disorder She was two weeks late; but no complication - Pleurisy recurrent. - Traumatic brain injury (HCC) ~ 9 years of age Fell off the [employer]; lost consciousness 3-5 minutes Current Outpatient Prescriptions: zonisamide (ZONEGRAN) 100 mg capsule Take 3 capsules by mouth once daily. Disp: 270 capsule Rfl: 3 lamoTRIgine ER (LAMICTAL XR) 100 mg 24 hr tablet Take two (2.0) in AM and four(4.0) tablets at bedtime Disp: 540 tablet Rfl: 3 acetaminophen (TYLENOL) 325 mg tablet Take 650 mg by mouth every 6 hours as needed. Disp: Rfl: Magnesium 250 mg tab Take 500 mg by mouth once daily. Disp: Rfl: clindamycin (CLEOCIN) 150 mg capsule Take 2 capsules by mouth three times daily for 10 days. Disp: 60 capsule Rfl: 0 cyclobenzaprine (FLEXERIL) 5 mg tablet Take 1 tablet by mouth three times daily as needed for Muscle Spasm. Disp: 15 tablet Rfl: 0 INTRAUTERINE DEVICE, IUD, INTRAUTERINE by INTRAUTERINE route once daily. Disp: Rfl: No current facility-administered medications for this visit. PAST SURGICAL HISTORY Procedure Laterality Date - APPENDECTOMY - LEEP PROCEDURE ([employer] DEPT)_*FL FAMILY HISTORY Problem Relation Age of Onset - Multiple Sclerosis Sister - Seizures Maternal Aunt Traumatic epilepsy - Headache Mother - Headache Maternal Grandfather Social History Substance Use Topics - Smoking status: Never Smoker - Smokeless tobacco: Never Used - Alcohol use No BP 112/80 Pulse 86 Temp 36.7 ?C (98 ?F) (Left Tympanic) Resp 18 Wt 61.2 kg (135 lb) BMI 23.91 kg/m? Objective Physical Exam Constitutional: She is oriented to person, place, and time and well-developed, well-nourished, and in no distress. HENT: Head: Normocephalic and atraumatic. Pt has mild facial swelling over the medial lower zygomatic arch area and adjacent to the nose. Mild erythema. She is tender to palpation . No abscess palpated. Pt has good dentition on mouth exam. No gum swelling. No trismus. Neck: Normal range of motion. Cardiovascular: Normal rate, regular rhythm and normal heart sounds. Pulmonary/Chest: Effort normal and breath sounds normal. Neurological: She is alert and oriented to person, place, and time. Skin: Skin is warm and dry. No rash noted. Psychiatric: Affect and judgment normal. Nursing note and vitals reviewed. ASSESSMENT/PLAN: 1. Left facial swelling - ICD9: 784.2, ICD10: R22.0 Likely the start of infection- either cellulitis or from tooth. Will treat with clindamycin and have her closely follow up with her pcp. Discussed with patient concerning symptoms to go to the emergency department or follow up here. Pt agreeable with this plan. Radha Greer PA-C Referring Provider: SELF [[id number]] Allergies As of Date: 09/22/2017 Noted Allergy Reaction KEPPRA (LEVETIRACETAM) 11/06/2013 1 - Mental Status Change 14 - Other: See Comments Comments: Hallucinations, suicidal thoughts PENICILLINS 11/06/2013 2 - Rash Date Reviewed: 09/22/2017 Reviewed by: Leila Lopez Ma - Fully Assessed Reason for Visit: Acute Visit [896] Cmt: sore in mouth Primary Visit Diagnosis:Left facial swelling [R22.0] Order(s):clindamycin (CLEOCIN) 150 mg capsuleTake 2 capsules by mouth three times daily for 10 days.Disp: 60 capsuleRfl: 0 Prescriptions as of 09/22/2017 Sig: ZONISAMIDE 100 MG CAPSULE Take 3 capsules by mouth once* LAMOTRIGINE ER 100 MG TABLET,* Take two (2.0) in AM and four* ACETAMINOPHEN 325 MG TABLET Take 650 mg by mouth every 6 * MAGNESIUM 250 MG TABLET Take 500 mg by mouth once ly* CLINDAMYCIN HCL 150 MG CAPSULE Take 2 capsules by mouth thre* CYCLOBENZAPRINE 5 MG TABLET Take 1 tablet by mouth three * INTRAUTERINE DEVICE (IUD) INT* by INTRAUTERINE route once da* Problem List As Of Date 09/22/2017 Noted Resolved Partial epilepsy with intractable epilepsy (HCC*INVALID FOR*04/20/2014 Generalized convulsive epilepsy (HCC) [G40.309] INVALID FOR* Hand weakness [R29.898] INVALID FOR* Neck pain [M54.2] INVALID FOR* Prescriptions ordered this encounter Disp Refills Start End CLINDAMYCIN HCL 150 MG CAPSULE 60 c* 0 09/22/2017 10/02/2017 Route: ORAL Sig: Take 2 capsules by mouth three times daily for 10 days. Encounter Status:Closed by RADHA GREER PA-C on 09/22/17 CNPTc Observed: 08/31/2017 Status: COMPLETED Source: [place] 12:00 AM [facility] REPOSITORY Telephone ([facility]) DOUG MORIN ([id number]) 1990 F Date Time Provider Department 08/31/17 RADHA GREER) [facility] During your visit today, we recorded the following information about you: Radha Greer PA-C 08/31/2017 7:57 AM Signed Please call patient and see how she is feeling. The antibiotic she was placed on for her UTI may need changed if she is not improving. Goldie Mcgrwa Ma 08/31/2017 8:37 AM Signed Left message for patient to return call. Goldie Bardales LPN 08/31/2017 8:53 AM Signed Patient called in, call was ended before results were given. Iris Cassidy, RN, RN 08/31/2017 8:59 AM Signed Pt returned called and report that she is somewhat better but not as good as she would have hope by now. Pt is at work so it is ok to leave a message on her Phone. Please send new Rx to [facility] on [facility]. Radha Greer PA-C 08/31/2017 9:32 AM Signed Bactrim DS was called into [facility]. She should d/c macrobid. Goldie Mcgraw Ma 08/31/2017 9:55 AM Signed notified pt by voicemail. Goldie Mcgraw Ma Allergies As of Date: 08/31/2017 Noted Allergy Reaction KEPPRA (LEVETIRACETAM) 11/06/2013 1 - Mental Status Change 14 - Other: See Comments Comments: Hallucinations, suicidal thoughts PENICILLINS 11/06/2013 2 - Rash Date Reviewed: 08/28/2017 Reviewed by: Lindsay Gannon LPN - Fully Assessed Reason for Visit: Results [95] Order(s):sulfamethoxazole-trimethoprim (BACTRIM DS) 800-160 mg per tabletTake 1 tablet by mouth twice daily for 10 days.Disp: 20 tabletRfl: 0 Prescriptions as of 08/31/2017 Sig: SULFAMETHOXAZOLE 800 MG-TRIME* Take 1 tablet by mouth twice * NITROFURANTOIN MONOHYDRATE AND * Take 1 capsule by mouth twice* ZONISAMIDE 100 MG CAPSULE Take 3 capsules by mouth once* LAMOTRIGINE ER 100 MG TABLET,* Take two (2.0) in AM and four* CYCLOBENZAPRINE 5 MG TABLET Take 1 tablet by mouth three * ACETAMINOPHEN 325 MG TABLET Take 650 mg by mouth every 6 * MAGNESIUM 250 MG TABLET Take 500 mg by mouth once ly* INTRAUTERINE DEVICE (IUD) INT* by INTRAUTERINE route once da* Problem List As Of Date 08/31/2017 Noted Resolved Partial epilepsy with intractable epilepsy (HCC*INVALID FOR*04/20/2014 Generalized convulsive epilepsy (HCC) [G40.309] INVALID FOR* Hand weakness [R29.898] INVALID FOR* Neck pain [M54.2] INVALID FOR* Prescriptions ordered this encounter Disp Refills Start End SULFAMETHOXAZOLE 800 MG-TRIMETHOPRIM* 20 t* 0 08/31/2017 09/10/2017 Cmt: Ok to give generic equivalent Route: ORAL Sig: Take 1 tablet by mouth twice daily for 10 days. Encounter Status:Closed by RADHA GREER PA-C on 08/31/17 PROGRESS Observed: 08/28/2017 Status: COMPLETED Source: [place] 10:08 AM [facility] REPOSITORY HNO ID: [id number] Author: Everton Gale Service: (none) Author Type: Physician Type: Progress Notes Filed: 08/28/2017 10:23 AM Note Text: Patient presents with: urgency and frequency with urination: x 1 day-no burning yet HPI: Symptoms since yesterday. Dysuria: no burning but does not feel good after voiding Frequency: Yes Hematuria: No Nausea: No Fever or chills: No Back pain: No Abdominal pain: No Prior UTI: Yes Personal history of kidney stones: No Currently following a left ovarian cyst. PAST MEDICAL HISTORY Diagnosis Date - Abnormal Pap smear of cervix with HPV- h/o LEEP - Depression resolved - Epilepsy (HCC) - Family history of epilepsy Aunt with traumatic epilepsy - Migraine - disorder She was two weeks late; but no complication - Pleurisy recurrent. - Traumatic brain injury (HCC) ~ 9 years of age Fell off the [employer]; lost consciousness 3-5 minutes MEDICATIONS: Current Outpatient Prescriptions: zonisamide (ZONEGRAN) 100 mg capsule Take 3 capsules by mouth once daily. lamoTRIgine ER (LAMICTAL XR) 100 mg 24 hr tablet Take two (2.0) in AM and four(4.0) tablets at bedtime acetaminophen (TYLENOL) 325 mg tablet Take 650 mg by mouth every 6 hours as needed. Magnesium 250 mg tab Take 500 mg by mouth once daily. INTRAUTERINE DEVICE, IUD, INTRAUTERINE by INTRAUTERINE route once daily. cyclobenzaprine (FLEXERIL) 5 mg tablet Take 1 tablet by mouth three times daily as needed for Muscle Spasm. No current facility-administered medications for this visit. ALLERGIES: ALLERGIES Allergen Reactions - Keppra [Levetiracet* Mental Status Change, Other: See Comments Hallucinations, suicidal thoughts - Penicillins Rash VITALS: BP 102/60 Pulse 76 Temp 36.1 ?C (97 ?F) (Tympanic) Resp 18 Wt 62.4 kg (137 lb 9.6 oz) BMI 24.37 kg/m? PHYSICAL EXAM: GEN: NAD HEENT: EOMI, conjunctiva clear, moist mucous membranes HEART: regular rate and rhythm, no murmurs LUNGS: clear to auscultation, no wheezes or crackles, no increased WOB ABDOMEN: Soft, nondistended, no masses, no suprapubic tenderness BACK: No CVA tenderness ASSESSMENT/PLAN: 1. Urgency of urination - ICD9: 788.63, ICD10: R39.15 - UA DIP B/O - positive for blood, LE, and nitrite = UTI - URINE CULTURE - NITROFURANTOIN MONOHYDRATE AND MACROCRYSTAL 100 MG ORAL CAP Everton Gale MD Observed: 08/28/2017 Status: F Source: [place] URINE CULTURE 10:08 AM [facility] REPOSITORY Sp. Request/Comment: - Specimen received in preservative Culture Result - >=100,000 CFU/ml Klebsiella pneumoniae --> ABNORMAL ALERT ORGANISM: Klebsiella pneumoniae METHOD: Minimum inhibitory concentration(Vitek) Antibiotic Interp CHRISTOPHER Status Ampicillin RESISTANT F Gentamicin SUSCEPTIBLE <=1 F Trimeth sulfameth SUSCEPTIBLE <=20 F Cefazolin SUSCEPTIBLE <=4 F CLSI breakpoints for therapy of uncomplicated UTI's due to E.coli, K.pneumoniae, and P.mirabilis were applied and may be used to predict the activity of oral agents(cefaclor, cefdinir, cefpodoxime, cefp rozil, cefuroxime, cephalexin, loracarbef). Ciprofloxacin SUSCEPTIBLE <=0.25 F Nitrofurantoin INTERMEDIATE 64 F Cefepime SUSCEPTIBLE <=1 F Piperacillin/Tazobac SUSCEPTIBLE <=4 F Ampicillin Sulbact SUSCEPTIBLE 4 F Ceftriaxone SUSCEPTIBLE <=1 F Meropenem SUSCEPTIBLE <=0.25 F Ertapenem SUSCEPTIBLE <=0.5 F Performed By: #### URCUL #### [facility] [address] [place] [id number] CNOV Observed: 08/28/2017 Status: COMPLETED Source: [place] 9:45 AM [facility] REPOSITORY Office Visit (UCWSTR) DOUG MORIN ([id number]) 1990 F Date Time Provider Department 08/28/17 9:45 AM EVERTON GALE [facility] During your visit today, we recorded the following information about you: Temperature Pulse Respiration Blood pressure 97 degrees 76/minute 18/minute 102/60 Weight 62.4 kg Everton Gale MD 08/28/2017 10:23 AM Signed Patient presents with: urgency and frequency with urination: x 1 day-no burning yet HPI: Symptoms since yesterday. Dysuria: no burning but does not feel good after voiding Frequency: Yes Hematuria: No Nausea: No Fever or chills: No Back pain: No Abdominal pain: No Prior UTI: Yes Personal history of kidney stones: No Currently following a left ovarian cyst. PAST MEDICAL HISTORY Diagnosis Date - Abnormal Pap smear of cervix with HPV- h/o LEEP - Depression resolved - Epilepsy (HCC) - Family history of epilepsy Aunt with traumatic epilepsy - Migraine - disorder She was two weeks late; but no complication - Pleurisy recurrent. - Traumatic brain injury (HCC) ~ 9 years of age Fell off the [employer]; lost consciousness 3-5 minutes MEDICATIONS: Current Outpatient Prescriptions: zonisamide (ZONEGRAN) 100 mg capsule Take 3 capsules by mouth once daily. lamoTRIgine ER (LAMICTAL XR) 100 mg 24 hr tablet Take two (2.0) in AM and four(4.0) tablets at bedtime acetaminophen (TYLENOL) 325 mg tablet Take 650 mg by mouth every 6 hours as needed. Magnesium 250 mg tab Take 500 mg by mouth once daily. INTRAUTERINE DEVICE, IUD, INTRAUTERINE by INTRAUTERINE route once daily. cyclobenzaprine (FLEXERIL) 5 mg tablet Take 1 tablet by mouth three times daily as needed for Muscle Spasm. No current facility-administered medications for this visit. ALLERGIES: ALLERGIES Allergen Reactions - Keppra [Levetiracet* Mental Status Change, Other: See Comments Hallucinations, suicidal thoughts - Penicillins Rash VITALS: BP 102/60 Pulse 76 Temp 36.1 ?C (97 ?F) (Tympanic) Resp 18 Wt 62.4 kg (137 lb 9.6 oz) BMI 24.37 kg/m? PHYSICAL EXAM: GEN: NAD HEENT: EOMI, conjunctiva clear, moist mucous membranes HEART: regular rate and rhythm, no murmurs LUNGS: clear to auscultation, no wheezes or crackles, no increased WOB ABDOMEN: Soft, nondistended, no masses, no suprapubic tenderness BACK: No CVA tenderness ASSESSMENT/PLAN: 1. Urgency of urination - ICD9: 788.63, ICD10: R39.15 - UA DIP B/O - positive for blood, LE, and nitrite = UTI - URINE CULTURE - NITROFURANTOIN MONOHYDRATE AND MACROCRYSTAL 100 MG ORAL CAP Everton Gale MD Referring Provider: SELF [[id number]] Allergies As of Date: 08/28/2017 Noted Allergy Reaction KEPPRA (LEVETIRACETAM) 11/06/2013 1 - Mental Status Change 14 - Other: See Comments Comments: Hallucinations, suicidal thoughts PENICILLINS 11/06/2013 2 - Rash Date Reviewed: 08/28/2017 Reviewed by: Lindsay Gannon LPN - Fully Assessed Reason for Visit: urgency and frequency with urination [Other] Cmt: x 1 day- no burning yet Primary Visit Diagnosis:Urgency of urination [R39.15] Order(s):UA DIP B/O [3228084] Order #: [id number] URINE CULTURE [SQURCUL] Order #: [id number] nitrofurantoin monohydrate and macrocrystal (MACROBID) 100 mg capsuleTake 1 capsule by mouth twice daily with meals for 7 days.Disp: 14 capsuleRfl: 0 Prescriptions as of 08/28/2017 Sig: ZONISAMIDE 100 MG CAPSULE Take 3 capsules by mouth once* LAMOTRIGINE ER 100 MG TABLET,* Take two (2.0) in AM and four* ACETAMINOPHEN 325 MG TABLET Take 650 mg by mouth every 6 * MAGNESIUM 250 MG TABLET Take 500 mg by mouth once ly* INTRAUTERINE DEVICE (IUD) INT* by INTRAUTERINE route once da* NITROFURANTOIN MONOHYDRATE AND * Take 1 capsule by mouth twice* CYCLOBENZAPRINE 5 MG TABLET Take 1 tablet by mouth three * Problem List As Of Date 08/28/2017 Noted Resolved Partial epilepsy with intractable epilepsy (HCC*INVALID FOR*04/20/2014 Generalized convulsive epilepsy (HCC) [G40.309] INVALID FOR* Hand weakness [R29.898] INVALID FOR* Neck pain [M54.2] INVALID FOR* Prescriptions ordered this encounter Disp Refills Start End NITROFURANTOIN MONOHYDRATE AND MACROCR* 14 c* 0 08/28/2017 09/04/2017 Route: ORAL Sig: Take 1 capsule by mouth twice daily with meals for 7 days. Encounter Status:Closed by EVERTON GALE MD on 08/28/17 ED PROVIDER PROGRESS Observed: 08/24/2017 Status: COMPLETED Source: SINCERE NOTE 7:41 AM [facility] REPOSITORY Doug Morin : 1990 Chief Complaint Patient presents with Eye Injury Allergies Allergen Reactions Keppra [Levetiracetam] Other (See Comments) Hallucinations, SI Pcn [Penicillins] Rash DOS: 08/24/2017 Doug is a 27 year old employee presenting with eye injury. This morning she was in her usual state of health, hit herself in the eye with a blood pressure cuff, the sharper edge with stitching. Immediate pain and tearing afterwards, feels like there is sand in her eye. She has difficulty opening her eyes, feels like she got punched in the eye, also with double vision. She does not wear contacts. Allergic to keppra and penicillin. This morning she took alieve for headache. Review of Systems Constitutional: Negative for activity change and fever. Eyes: Positive for pain, discharge, redness and visual disturbance. History reviewed. No pertinent past medical history. History reviewed. No pertinent surgical history. Pediatric History Patient Guardian Status Father: Karen Morin Other Topics Concern Not on file Social History Narrative No narrative on file ED Triage Vitals Date and Time Temp Temp src Pulse Resp BP SpO2 Weight User 08/24/17 0710 37.1 C (98.8 F) Temporal 106 20 119/67 -- 62.6 kg SSB Physical Exam Constitutional: She is oriented to person, place, and time. She appears well-developed and well-nourished. No distress. HENT: Head: Normocephalic and atraumatic. Right eye erythematous with tearing present, fluorescein eye stain performed with horizontal linear superficial laceration across cornea. Neurological: She is alert and oriented to person, place, and time. Skin: Skin is warm and dry. Procedures MDM ED Course: Diagnosis' considered: corneal abrasion Labs/Radiology: Consults: No orders of the defined types were placed in this encounter. Medical Record/Transferring Institution Record: Treatment/Reassessment: afebrile and hemodynamically stable on presentation to the ED. Right eye injury occurred 1 hour prior to presentation. Fluorescin eye stain performed with tetracaine, revealed linear abrasion to right cornea. Prescribed polytrim x5 days, instructed to follow up with PCP tomorrow for reevaluation. Diagnosis to highest level of medical certainty/plan: Final diagnoses: [S05.01XA] Abrasion of right cornea, initial encounter Reyna Schultz MD Pediatric Resident, PGY-3 08/24/2017 8:23 AM Attending Notes: Resident's notes were reviewed and I have edited the notes with strike through to reflect the accuracy of the notes, additional notes have been added under my heading. I have discussed and performed the history and findings of the resident. The RN notes, vitals and pertinent old records have been reviewed by me. Differential diagnosis and management options were discussed with the resident, as part of their education and with the family before they were carried out. Management plans were modified as needed. 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 Review: History: Watery itchy eyes No FB injury No uri at work EOMI No infection no pain on palpation of lids Active alert no distress TM clear Nodes none Neck supple is well hydrated, non toxic, neuro neurologically intact and is appropriate per age. cardio normal cvs normal with adequate perfusion lungs clear lungs with no distress -no rash -abd no masses or pain noted. Plan: Corneal abrasion treat PROGRESS Observed: 06/25/2017 Status: COMPLETED Source: [place] 2:49 PM [facility] REPOSITORY HNO ID: [id number] Author: Louise Morin Service: (none) Author Type: Auto Vinyl Top Installer Type: Progress Notes Filed: 06/25/2017 3:40 PM Note Text: Doug Morin presents for removal of IUD due to be removed. PROCEDURE: Speculum placed in vagina, IUD string visualized and grasped with ring forceps. ParaGard removed ASSESSMENT/PLAN: IUD removed without difficult and patient tolerated procedure well. Discussed with patient that a ParaGard was in place, not a Mirena IUD. Contraception plans: condoms Reviewed pre-conception guidelines including folic acid supplementation, optimal timing of intercourse, avoidance of smoking, alcohol, exposure to environmental chemicals and need for evaluation if not within 12 months. Interested in Nexplanon. Reviewed risks, benefits, MOA, and when to insert. Handout given and pre certification to be done. Louise Morin CNM FEMALE PELVIS Observed: 06/24/2017 Status: F Source: [place] TRANSVA 3:09 PM [facility] REPOSITORY * * *Final Report* * * DATE OF EXAM: Jun 24 2017 3:09PM [facility] 1060 - US FEMALE PELVIS TRANSVAG / PROCEDURE REASON: Left lower quadrant pain * * * * Physician Interpretation * * * * EXAMINATION: TRANSVAGINAL AND TRANSABDOMINAL LIMITED PELVIC ULTRASOUND HISTORY: Left lower quadrant pain TECHNIQUE: Sonography of the pelvis was performed by transvaginal and transabdominal (limited) techniques. Images were obtained and stored in a permanent archive. M: [id number] COMPARISON: None RESULT: Uterus size: 8.0 x 6.5 x 4.3 cm -Orientation: Retroverted on transvaginal images. -Myometrium: Normal sonographic appearance. -Endometrial echo complex: IUD is seen in situ at the level of the uterine fundus and body. The endometrium is poorly visualized on the transvaginal images the sagittal. Transabdominally it measures 10 mm. On several transverse images it is thought to measure close to 14 mm. -Cervix: normal Right ovary: 3.5 x 3.3 x 3.3 cm Follicular changes are present. There is a complex mass measuring 2.6 x 2.0 x 2.0 cm within the right ovary which has an appearance typical for hemorrhagic cyst. Resistive index measures 0.62. Normal arterial venous vascular flow is demonstrated within the left ovary. Left ovary: 3.4 x 3.3 x 1.7 cm Normal follicular changes are present. Arterial and venous vascular flow is documented. Pelvis free fluid: There is a trace amount of physiologic free fluid within the cul-de-sac. IMPRESSION: IUD in situ. Endometrium poorly demonstrated transvaginally especially in the sagittal projection. On transabdominal imaging it measures 10 mm and on 1 transverse transvaginal images it is less than 15 mm. Complex cyst left ovary measuring less than 3 cm and most consistent with hemorrhagic cyst. Arterial venous vascular flow is documented within both ovaries. Thread Marker: PSCB Transcribe Date/Time: Jun 24 2017 4:45P Dictated by : TRESSA GARDNER MD This examination was interpreted and the report reviewed and electronically signed by: TRESSA GARDNER MD on Jun 24 2017 4:50PM EST [id number] PROGRESS Observed: 06/24/2017 Status: COMPLETED Source: [place] 2:25 PM [facility] REPOSITORY HNO ID: [id number] Author: Lina Ornelas EZ4U Service: (none) Author Type: (none) Type: Progress Notes Filed: 06/24/2017 3:10 PM Note Text: Radiology Service Progress Note PATIENT NAME: Doug Morin DATE OF SERVICE: June 24, 2017 TIME: 2:25 PM PATIENT IDENTITY VERIFICATION COMPLETED USING TWO (2) METHODS: Patient confirmed name verbally and Date of . PATIENT GENDER DATA: Female. status: : No status: NO. PATIENT RELEVANT IMPLANT DATA REVIEWED: Not Applicable RADIOLOGY DEPARTMENT: Ultrasound PERIPHERAL IV DATA: Not applicable SIGNED BY: Lina Johnson [email or web address] June 24, 2017 2:25 PM PROGRESS Observed: 06/21/2017 Status: COMPLETED Source: [place] 1:28 PM [facility] REPOSITORY O ID: [id number] Author: Jemima Tucker Service: (none) Author Type: Physician Type: Progress Notes Filed: 06/21/2017 2:18 PM Note Text: Doug Morin is a 26 year old female who presents for LLQ pain. HPI: Patient reports feeling tired over the past month. She was also having back pain so she saw her pcp. Patient reports on 06/17 she felt bloated AND had stabbing pain that made her feel nauseated AND lose urine. Her pain is mostly in her LLQ but goes into upper abdomen AND RLQ. Since she was little she would occasionally lose urine when she'd laugh. Patient also has some loss of appetite. PAST MEDICAL HISTORY Diagnosis Date - Abnormal Pap smear of cervix with HPV- h/o LEEP - Depression resolved - Epilepsy (HCC) - Family history of epilepsy Aunt with traumatic epilepsy - Migraine - disorder She was two weeks late; but no complication - Pleurisy recurrent. 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 Lives with mother father and son. Current Outpatient Prescriptions: LORazepam (ATIVAN) 1 mg tablet Take 1 tablet by mouth as needed (for prolonged seizure or clustering of seizures). zonisamide (ZONEGRAN) 100 mg capsule Take 3 capsules by mouth once daily. lamoTRIgine ER (LAMICTAL XR) 100 mg 24 hr tablet Take two (2.0) in AM and four(4.0) tablets at bedtime cyclobenzaprine (FLEXERIL) 5 mg tablet Take 1 tablet by mouth three times daily as needed for Muscle Spasm. acetaminophen (TYLENOL) 325 mg tablet Take 650 mg by mouth every 6 hours as needed. Magnesium 250 mg tab Take 500 mg by mouth once daily. INTRAUTERINE DEVICE, IUD, INTRAUTERINE by INTRAUTERINE route once daily. No current facility-administered medications for this visit. Allergies As of Date: 06/21/2017 Allergen Noted Reaction KEPPRA [LEVETIRACETAM] 11/06/2013 Mental Status Change and Other: See Comments PENICILLINS 11/06/2013 Rash Fully Assessed 06/17/2017 REVIEW OF SYSTEMS Expanded ROS: GENERAL: No weight loss, malaise or fevers RESPIRATORY: Negative for cough, hemoptysis, wheezing, COPD, dyspnea or shortness of breath CARDIOVASCULAR: some chest discomfort last night - felt like pleurisy (patient had it the past) She has felt hot at times Allergies and current medication updated:Yes EXAM: There were no vitals taken for this visit. GENERAL: pleasant, female in no apparent distress CHEST: Normal inspiratory effort ABDOMEN: soft and no masses, mildly tener over lower abdomen PELVIC: external genitalia normal, normal Bartholin's glands, urethra, Forman's glands, no vulvar lesions, no cervical lesions, good vaginal support, physiologic discharge present, normal appearing perineal body and perianal region BIMANUAL: uterus normal size, shape and consistency, no adnexal masses and non-tender NEURO: alert and oriented x3,exam grossly non-focal EXTREMITIES: normal ASSESSMENT AND PLAN: 26yo female with LLQ pain Check pelvic US for LLQ pain Urinary incontinence - consider referral to pelvic floor PT If US normal recommend f/u with pcp Jemima Tucker MD Observed: 06/17/2017 Status: F Source: [place] URINE CULTURE 7:02 PM [facility] REPOSITORY Sp. Request/Comment: - Specimen received in preservative Culture Result - No growth (<1,000 CFU/ml) Performed By: #### URCUL #### [facility] [address] [place], [place] [address] PROGRESS Observed: 06/17/2017 Status: COMPLETED Source: [place] 5:31 PM [facility] REPOSITORY HNO ID: [id number] Author: Alyssa (Yomaira) Jolie Service: (none) Author Type: Nurse Practitioner Type: Progress Notes Filed: 06/17/2017 5:43 PM Note Text: Subjective HPI HPI Doug Morin is a 26 year old female who presents today for CC of LLQ pain, and incontinence This started over the past week. She is also having increased frequency with urination Symptoms are worsened by nothing She has tried no treatment or medication. Risk factors not significant. PMH not significant. Pain is a 3 or 4 out of 10 BP 94/68 Pulse 86 Temp 37.2 ?C (98.9 ?F) (Tympanic) Resp 16 Wt 59.9 kg (132 lb) BMI 23.38 kg/m2 ALLERGIES Allergen Reactions - Keppra [Levetiracet* Mental Status Change, Other: See Comments Hallucinations, suicidal thoughts - Penicillins Rash ACTIVE PROBLEM LIST Generalized Convulsive Epilepsy (Hcc) Hand Weakness Neck Pain Family History Problem Relation Age of Onset - Multiple Sclerosis Sister - Seizures Maternal Aunt Traumatic epilepsy - Headache Mother - Headache Maternal Grandfather Social History Marital status: Single Spouse name: Years of education: 14 Number of children: 1 Occupational History 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 Lives with mother father and son. Review of Systems Constitutional: Negative. Negative for chills, fever and malaise/fatigue. HENT: Negative for congestion, ear pain, sinus pain and sore throat. Respiratory: Negative for cough, sputum production, shortness of breath and wheezing. Cardiovascular: Negative for chest pain. Gastrointestinal: Positive for abdominal pain (suprapubic, LLQ). Genitourinary: Positive for dysuria, flank pain, frequency and urgency. Musculoskeletal: Negative for myalgias. Skin: Negative for rash. Neurological: Negative for headaches. Objective Physical Exam Constitutional: She is oriented to person, place, and time and well-developed, well-nourished, and in no distress. No distress. HENT: Head: Normocephalic and atraumatic. Eyes: Conjunctivae and EOM are normal. Pupils are equal, round, and reactive to light. Neck: Normal range of motion. Neck supple. Pulmonary/Chest: Effort normal. Abdominal: Soft. Bowel sounds are normal. There is no hepatosplenomegaly. There is tenderness in the suprapubic area and left lower quadrant. There is no rigidity, no rebound, no guarding, no CVA tenderness, no tenderness at McBurney's point and negative Bob's sign. Neurological: She is alert and oriented to person, place, and time. Skin: Skin is warm and dry. Psychiatric: Affect normal. Nursing note and vitals reviewed. ASSESSMENT/PLAN: 1. Left lower quadrant pain - ICD9: 789.04, ICD10: R10.32 Urine dip negative Will send culture and call if needs treated. Advise tylenol or ibuprofen as needed for discomfort Set up appointment with TRANSFER ENGINEER for further evaluation - UA DIP B/O - URINE CULTURE Diagnosis and treatment plan were discussed and questions were answered to the patient's satisfaction. Pt acknowledged understanding of concepts and follow up plan. Specific signs and symptoms that would indicate the need for higher level of care were discussed in detail warranting prompt ER evaluation. Alyssa Dave CNP ALLERGIES ALLERGIES DATE TYPE / CODE NAME / CODE REACTION SEVERITY SOURCE 05/04/2018 Drug Penicillins/[id number] Rash Unknown [place] Allergy/416 476(RXNORM) [facility] [id number]([facility] ED CT) Repository 05/04/2018 Drug levetiracetam/F0060 Other Unknown [place] Allergy/416 88817(RXNORM) [facility] [id number]([facility] ED CT) Repository 08/24/2017 DRUG LEVETIRACETAM Hallucinations [facility] INGREDI/419 , [facility] [id number](SN Repository ED CT) 08/24/2017 Drug PENICILLINS [facility] Class/78908 Hospital 1003(SNOMED Repository CT) 11/06/2013 DRUG LEVETIRACETAM Mental g [facility] INGREDI/419 [address] [place] 421684(SNOM Repository ED CT) 11/06/2013 Drug PENICILLINS RASH [facility] Class/16960 [address] [place] 1003(SNOMED Repository CT) ENCOUNTERS ENCOUNTERS ADMIT/DISCHARGE ACCOUNT NUMBER ADMITTING ENCOUNTER LOCATION SOURCE CLASS 05/06/2018/05/10/19 [id number] Ambulatory [address] [place] Repository 05/04/2018/05/04/19 [id number] Emergency [address] ding:ED Repository 04/15/2018 [id number] Ambulatory [facility] ding:CT Repository 04/06/2018 [id number] [facility] Repository 02/16/2018/02/19/20 [id number] Ambulatory [address] Repository 02/15/2018 [id number] [facility] ding:RAD Repository 02/11/2018/02/12/20 [id number] Emergency [address] ding:ED Repository 02/03/2018/02/05/20 [id number] Ambulatory [address] [place] Repository 01/10/2018/01/28/20 [id number] Ambulatory [address] [place] Repository 01/07/2018/01/08/20 [id number] Emergency [address] ding:ED Repository 01/05/2018/01/09/20 [id number] Ambulatory [address] [place] Repository 12/23/2017/12/24/19 [id number] Emergency [address] ding:ED Repository 11/17/2017/11/18/19 [id number] Ambulatory [address] Main [place] Repository 11/17/2017/11/18/19 [id number] Ambulatory [address] [place] Repository 11/10/2017/11/11/19 [id number] Emergency [address] ding:ED Repository 11/03/2017/11/04/19 [id number] Emergency [place] ding:ED Repository 09/22/2017/09/24/19 [id number] Ambulatory [address] Repository 08/28/2017/08/31/19 [id number] Ambulatory [address] Repository 08/24/2017/08/25/19 [id number] Emergency Building:[facility] [place] [address] [place] [address] Repository 06/25/2017/06/25/19 [id number] Ambulatory [address] Repository 06/24/2017/06/24/19 [id number] Ambulatory [address] Repository 06/21/2017/06/21/19 [id number] Ambulatory [address] Repository 06/17/2017/06/18/19 [id number] Ambulatory [address] Repository PAYERS PAYERS ENCOUNTER GUARANTOR PAYER SUBSCRIBER SOURCE 05/04/2018 DOGU E Primary DOUG E [place] [id number] Insurance:MEDICAL COSTADOB: [facility] [id number] Number: Repository [id number]: 330 [id number] [phone] () Date:[id number] [address]RO: 05/04/2018 Secondary NOT GIVENUNK [place] Insurance:SELF PAY [facility] Number: Effective Repository Date:2018-05-04 04/15/2018 DOUG E Primary DOUG E [place] [id number] Insurance:MEDICAL COSTADOB: [facility] [id number] Number: Repository [id number]: 330 [id number] [phone] () Date:1530-16-85GL[address] [address]FP: 04/15/2018 Secondary NOT GIVENUNK [place] Insurance:SELF PAY [facility] Number: Effective Repository Date:2018-04-11 04/06/2018 Doug CostaDOB: Primary Doug CostaDOB: [facility] [employer] [id number] Insurance:Medical [id number] [facility] [place], [place] Number: Effective [address]Wta: [phone]) Date: 21 (HP) 02/15/2018 DOUG E Primary DOUG E [place] [id number] Insurance:MEDICAL COSTADOB: [facility] [id number] Number: Repository [id number]: 330 [id number] [phone] (HP) Date:4021-49-14LQ[address] [address]KK: 02/15/2018 Secondary NOT GIVENUNK [place] Insurance:SELF PAY [facility] Number: Effective Repository Date:2018-02-15 02/11/2018 DOUG E Primary DOUG E [place] [id number] Insurance:MEDICAL COSTADOB: [facility] [id number] Number: Repository [id number]: 330 [id number] [phone] (HP) Date:[id number] [address]WR: 02/11/2018 Secondary NOT GIVENUNK [place] Insurance:SELF PAY [facility] Number: Effective Repository Date:2018-02-11 01/07/2018 DOUG E Primary DOUG E [place] [id number] Insurance:MEDICAL COSTADOB: [facility] [id number] Number: Repository [address]Jhl: 330 [id number] [phone] (HP) Date:9482-07-04UL[address] [address]QF: 01/07/2018 Secondary NOT GIVENUNK [place] Insurance:SELF PAY [facility] Number: Effective Repository Date:2018-01-07 12/23/2017 DOUG E Primary DOUG E [place] [id number] Insurance:MEDICAL COSTADOB: [facility] [id number] Number: Repository [id number]: 330 [id number] [phone] (HP) Date:[id number] [address]HX: 12/23/2017 Secondary NOT GIVENUNK [place] Insurance:SELF PAY [facility] Number: Effective Repository Date:2017-12-23 11/10/2017 DOUG E Primary DOUG E [place] [id number] Insurance:MEDICAL COSTADOB: [facility] [id number] Number: Repository [id number]: 330 [id number] [phone] (HP) Date:[id number] [address]PU: 11/10/2017 Secondary NOT GIVENUNK [place] Insurance:SELF PAY [facility] Number: Effective Repository Date:2017-11-10 11/03/2017 DOUG E Primary DOUG E [place] [id number] Insurance:MEDICAL COSTADOB: [facility] [id number], [place] Number: Repository [id number]: 330 [id number] [phone] (HP) Date:[id number] [address]IG: 11/03/2017 Secondary NOT GIVENUNK [place] Insurance:SELF PAY [facility] Number: Effective Repository Date:2017-11-03 08/24/2017 [id number] Primary DOUG COSTADOB: [facility] Insurance:[employer] [id number] Hospital HOSPITALDOB: COMPPolicy Number: [address] [place] Repository [id number] [place], [place] Date: [address] [place], [place] [address]Hfw: (HP) () 08/24/2017 Secondary DOUG COSTADOB: [facility] Insurance:[employer] [id number] Hospital COMPPolicy Number: [address] [place] Repository [id number] [place], [place] Date: [id number]
== END ==
PROVIDERS: Family Provider Nurse Practitioner; PCP Nurse Practitioner; Referring Provider Nurse Practitioner Acute Care; Visit Provider Nurse Practitioner Acute Care
DX: G70.00 Myasthenia gravis without (acute) exacerbation (principal)
CPT/HCPCS: 71250

== ENCOUNTER 2018-05-04 12:38 | Emergency (ER) | payer OTHER, SELFPAY ==
[2018-05-04 12:39] VITALS: BP 103/71; PULSE 87; RESP 16; TEMP 36.7; O2SAT 100; BMI 22.8
--- NOTE | 2018-05-04 12:57 | RAD_ITS ---
STUDY: X-RAY CHEST REASON FOR EXAM: Female, 27 years old. One week history of chest pain and shortness of breath. TECHNIQUE: PA and lateral views of the chest. COMPARISON: Comparison is made with prior study dated February 15, 2018. FINDINGS: The lungs are clear and expanded. There is no demonstrated pleural abnormality. Normal size heart. Normal mediastinum and shima. Normal visualized pulmonary arteries. Normal visualized aortic arch and descending thoracic aorta. Normal visualized thoracic spine. Normal visualized ribs, clavicles, and shoulders. There is no demonstrated abnormality of the visualized soft tissue structures of the upper abdomen. RAD/Chest PA and Lateral IMPRESSION: Normal x-ray examination of the chest. Electronically Signed: Mitchel Conrad MD at 13:42 EST Tel [phone], Service support ,
--- NOTE | 2018-05-04 12:57 | EKG12_ITS ---
Test Reason : GEN ILLNESS Blood Pressure : / mmHG Vent. Rate : 066 BPM Atrial Rate : 066 BPM P-R Int : 182 ms QRS Dur : 080 ms QT Int : 382 ms P-R-T Axes : 070 062 053 degrees QTc Int : 400 ms Normal sinus rhythm Normal ECG Confirmed by JEREMI SALGADO, ZINA ([id number]), social media editor FELIX CALLE ([id number]) on 05/06/2018 2:38:02 PM Referred By: DERIK Confirmed By:ZINA BLOOD MD
[2018-05-04 13:09] VITALS: BP 112/68; PULSE 86; RESP 16; O2SAT 100
[2018-05-04 13:16] LABS: Absolute Lymphocyte Count 1.88 X10^3/ul (0.83-4.51); Absolute Neutrophil Count 4.5 X10^3/uL (2.0-7.7); Basophil# 0.03 X10^3/uL; Basophil% 0.4 % (0-1); Eosinophil# 0.13 X10^3/uL; Eosinophils% 1.9 % (0-5); Hemoglobin 12.2 g/dl (12.0-15.0); Lymphocyte # 1.88 X10^3/ul (4.0); Lymphocyte % 26.9 % (19-41); Mean Corpuscular Hgb 28.3 pg (27.0-32.0); Mean Corpuscular Volume 85.8 fL (81-99); Mean Platelet Vol. 9.2 fl (6.2-12.0); Monocyte% 7.1 % (0-10); Neutrophil # 4.45 X10^3/uL (2.7-7.7); Neutrophil % 63.6 % (47-70); Platelet Count 246 K/mm3 (150-450); RBC Distribution Width CV 13.5 % (11.6-14.6); RBC Distribution Width SD 42.6 fl (35.1-43.9); Red Blood Count 4.31 M/mm3 (4.2-5.4)
[2018-05-04 13:17] LABS: POSITIVE COUNT NO; POSITIVE DIFFERENTIAL NO; POSITIVE MORPHOLOGY NO
[2018-05-04 13:36] LABS: Anion Gap 10 (5-15); BUN 16 mg/dL (7-18); BUN/Creat Ratio 23.6 RATIO (10-20); Chloride 108 mmol/L (98-107); Creatinine, Serum 0.68 mg/dL (0.55-1.02); EST Glomerular Filtration Rate 108 mL/min (>60); Est Glom Filt Rate - Afr Amer 131 mL/min (>60); Estimated Creatinine Clearance 96.55 ml/min; Glucose 80 mg/dL (74-106); Potassium 3.4 mmol/L (3.5-5.1); Sodium Level 139 mmol/L (136-145)
[2018-05-04 13:38] LABS: hCG Titer Quant., Serum < 1 mIU/mL (<9 non-preg)
[2018-05-04 15:05] VITALS: BP 108/57; PULSE 85; RESP 15; O2SAT 98
--- NOTE | 2018-05-04 15:25 | ED.VISSUMM ---
- ER Visit Summary Date of Service: 05/04/18 Chief Complaint: Chest pain History of Present Illness: The patient is a 27 F who presents with chest pain that has been constant for the past week. Patient describes the pain is sharp. Patient states pain is over the substernal area. Patient states the pain is worse with deep breathing. Patient states nothing is seem to help with the pain. Patient is concerned that it is related to her newly diagnosed myasthenia gravis. Patient states that she called her primary care physician who referred her to the emergency department. Physical Examination: Vital signs are stable. Patient is afebrile. Patient is in no acute distress. Oral mucosa is pink and moist. Neck is supple. Trachea is midline. There is no JVD noted. Heart was regular rate and rhythm. Lungs are clear and equal bilaterally. Abdomen is soft. Bowel sounds are normal. There is no tenderness. Cranial nerves II through XII are intact. There are no focal motor or sensory deficits noted. Skin is warm and dry. There is no rash or jaundice noted. The remaining physical exam is within normal limits. Test Results: CBC, basic metabolic profile, troponin, and serum hCG were obtained and were all normal. EKG showed normal sinus rhythm with a rate of 66. There are no acute ST or T wave changes noted. PA and lateral chest x-ray was obtained. There is no acute cardiopulmonary process. Emergency Department Course and Treatment: Patient has a HEART score of 1. Patient was advised that this is low risk for acute cardiac event. Patient was instructed to follow-up with her primary care physician in 3-5 days. Patient understood and was agreeable with the plan. All questions were answered. Disposition: Discharge home Impression: Chest pain This note was generated with [employer] dictation software. It may contain incorrect words, spelling, and punctuation that were not noted in review of the chart prior to signing ED Disposition - Plan for ED Patient: Disposition: Home or Assisted Living Chief Complaint: General Illness Diagnosis: Chest pain of uncertain etiology, Myasthenia gravis Instructions: Discharge Instructions for Myasthenia Gravis, ED Chest Pain Atypical Unkn Cause Referrals: Macy Akins NP-C [Primary Care Provider] -
[2018-05-04 15:57] VITALS: BP 105/60; PULSE 87; RESP 16; O2SAT 97
== END 2018-05-04 15:57 | disposition home or self-care (01) ==
PROVIDERS: Emergency Provider Emergency Medicine; Family Provider Nurse Practitioner; PCP Nurse Practitioner
DX: R07.9 Chest pain, unspecified (principal); M54.9 Dorsalgia, unspecified; R51 Headache; R19.7 Diarrhea, unspecified; R06.00 Dyspnea, unspecified; R11.10 Vomiting, unspecified; G70.00 Myasthenia gravis without (acute) exacerbation; G40.909 Epilepsy, unspecified, not intractable, without status epilepticus
CPT/HCPCS: 71046; 80048; 84484; 84702; 85025; 93005; 99284; A4216

== ENCOUNTER → 2018-06-27 14:40 | Outpatient (CLI) | payer OTHER, SELFPAY ==
[2018-06-30 12:47] LABS: Lamotrigine (Lamictal) Level 6.3 ug/mL (2.0-20.0)
== END ==
PROVIDERS: Family Provider Nurse Practitioner; PCP Nurse Practitioner; Referring Provider Psychiatry & Neurology Neurology; Visit Provider Psychiatry & Neurology Neurology
DX: G40.909 Epilepsy, unspecified, not intractable, without status epilepticus (principal)
CPT/HCPCS: 36415; 82542

== ENCOUNTER → 2018-07-08 16:42 | Outpatient (CLI) | payer OTHER, SELFPAY ==
--- NOTE | 2018-07-08 16:49 | CT_ITS ---
STUDY: CT CHEST WITHOUT CONTRAST REASON FOR EXAM: Female, 27 years old. Thymoma RADIATION DOSAGE (If Supplied By Facility): CTDIvol = ( 6.61 ) mGy, DLP = ( 213.02 ) mGycm TECHNIQUE: Transaxial imaging was performed without the administration of intravenous contrast material. Individualized dose optimization techniques were used for this CT. COMPARISON: 04/15/2018 FINDINGS: Interval development of minimal peripheral alveolar disease in the left lower lobe. This could be related to infection or inflammation. There is no demonstrated pleural abnormality. Normal heart and pericardium. Stable soft tissue in the upper anterior mediastinum measuring 20 x 18 mm on image 39 of series 2. A small thymoma could have this CT appearance. Normal hilar regions. Normal unenhanced pulmonary arteries. Normal aorta arch and descending thoracic aorta. Normal osseous structures. There is no demonstrated abnormality of the visualized upper abdomen. CT/Chest without Contrast IMPRESSION: Stable soft tissue in the upper anterior mediastinum. A small thymoma could have this appearance. Adjacent structures are normal. Interval development of minimal peripheral alveolar disease in the left lower lobe. This could be related to infection or inflammation. Electronically Signed: Oscar Olson MD at 4:22 EDT Tel , Service support ,
== END ==
LOC: CT 16:42
PROVIDERS: Family Provider Nurse Practitioner; PCP Nurse Practitioner; Referring Provider Psychiatry & Neurology Neurology; Visit Provider Psychiatry & Neurology Neurology
DX: D15.0 Benign neoplasm of thymus (principal)
CPT/HCPCS: 71250

== ENCOUNTER → 2018-07-13 14:25 | Outpatient (CLI) | payer OTHER, SELFPAY ==
[2018-07-13 15:47] LABS: Absolute Lymphocyte Count 1.97 X10^3/ul (0.83-4.51); Absolute Neutrophil Count 6.1 X10^3/uL (2.0-7.7); Basophil# 0.02 X10^3/uL; Basophil% 0.2 % (0-1); Eosinophil# 0.16 X10^3/uL; Eosinophils% 1.8 % (0-5); Hematocrit 36.5 % (37-47); Hemoglobin 11.8 g/dl (12.0-15.0); Lymphocyte # 1.97 X10^3/ul (4.0); Mean Corp Hgb Conc 32.3 g/gl (32-36); Mean Corpuscular Hgb 28.5 pg (27.0-32.0); Mean Corpuscular Volume 88.2 fL (81-99); Mean Platelet Vol. 10.8 fl (6.2-12.0); Monocyte# 0.63 X10^3/uL; Neutrophil # 6.14 X10^3/uL (2.7-7.7); Neutrophil % 68.8 % (47-70); Platelet Count 242 K/mm3 (150-450); RBC Distribution Width CV 13.1 % (11.6-14.6); RBC Distribution Width SD 40.7 fl (35.1-43.9); Red Blood Count 4.14 M/mm3 (4.2-5.4); White Blood Count 8.9 K/mm3 (4.4-11.0)
[2018-07-13 16:01] LABS: POSITIVE COUNT NO; POSITIVE DIFFERENTIAL NO; POSITIVE MORPHOLOGY NO
[2018-07-13 16:15] LABS: ALB/GLOB Ratio 1.5 RATIO (0.9-2.4); AST(SGOT) 19 U/L (15-37); Alanine Aminotransfer ALT/SGPT 27 U/L (13-56); Albumin, Serum 4.2 g/dL (3.2-5.0); Alkaline Phosphatase 73 U/L (45-117); Anion Gap 6 (5-15); BUN 16 mg/dL (7-18); BUN/Creat Ratio 25.9 RATIO (10-20); Calcium,Total 8.4 mg/dL (8.5-10.1); Chloride 110 mmol/L (98-107); Creatinine, Serum 0.62 mg/dL (0.55-1.02); EST Glomerular Filtration Rate 121 mL/min (>60); Est Glom Filt Rate - Afr Amer 146 mL/min (>60); Globulin 2.8 g/dL (2.2-4.2); Glucose 84 mg/dL (74-106); Potassium 3.5 mmol/L (3.5-5.1); Sodium Level 141 mmol/L (136-145)
== END ==
PROVIDERS: Family Provider Nurse Practitioner; PCP Nurse Practitioner; Referring Provider Psychiatry & Neurology Neurology; Visit Provider Psychiatry & Neurology Neurology
DX: G70.00 Myasthenia gravis without (acute) exacerbation (principal)
CPT/HCPCS: 36415; 80053; 85025

== ENCOUNTER → 2018-07-19 11:08 | Outpatient (CLI) | payer OTHER, SELFPAY ==
[2018-07-19 11:23] VITALS: BP 92/53; PULSE 69; RESP 18; TEMP 37.3; O2SAT 99; BMI 22.9
[2018-07-19] MEDS: Acetaminophen 325 MG Tablet 650 MG PO (11:34)
[2018-07-19] MEDS: DiphenhydrAMINE 50 MG/ML Syringe 25 MG IV (11:37)
[2018-07-19] MEDS: Immune Globulin 20 gm Premixed Solution IV (12:23)
== END ==
LOC: MEDOUTP 11:08
PROVIDERS: Family Provider Nurse Practitioner; PCP Nurse Practitioner; Visit Provider Psychiatry & Neurology Neurology
DX: G70.00 Myasthenia gravis without (acute) exacerbation (principal)
CPT/HCPCS: 96365; J7050; A4216; J1568

== ENCOUNTER 2018-07-27 11:53 | Outpatient (RCR) | payer OTHER, SELFPAY ==
[2018-07-19 11:23] VITALS: BMI 22.9
[2018-07-21 11:43] LABS: Absolute Lymphocyte Count 1.69 X10^3/ul (0.83-4.51); Absolute Neutrophil Count 4.4 X10^3/uL (2.0-7.7); Basophil# 0.03 X10^3/uL; Basophil% 0.4 % (0-1); Eosinophil# 0.14 X10^3/uL; Eosinophils% 2.1 % (0-5); Hematocrit 40.8 % (37-47); Hemoglobin 13.2 g/dl (12.0-15.0); Lymphocyte # 1.69 X10^3/ul (4.0); Lymphocyte % 25.1 % (19-41); Mean Corp Hgb Conc 32.4 g/gl (32-36); Mean Corpuscular Hgb 28.4 pg (27.0-32.0); Mean Corpuscular Volume 87.9 fL (81-99); Mean Platelet Vol. 10.5 fl (6.2-12.0); Monocyte# 0.41 X10^3/uL; Monocyte% 6.1 % (0-10); Neutrophil # 4.43 X10^3/uL (2.7-7.7); Platelet Count 270 K/mm3 (150-450); RBC Distribution Width CV 13.4 % (11.6-14.6); RBC Distribution Width SD 42.3 fl (35.1-43.9); Red Blood Count 4.64 M/mm3 (4.2-5.4); White Blood Count 6.7 K/mm3 (4.4-11.0)
[2018-07-21 11:48] LABS: POSITIVE COUNT NO; POSITIVE DIFFERENTIAL NO; POSITIVE MORPHOLOGY NO
[2018-07-21 12:07] LABS: AST(SGOT) 21 U/L (15-37); Alanine Aminotransfer ALT/SGPT 29 U/L (13-56); Alkaline Phosphatase 74 U/L (45-117); Anion Gap 7 (5-15); BUN 11 mg/dL (7-18); BUN/Creat Ratio 15.7 RATIO (10-20); Chloride 108 mmol/L (98-107); EST Glomerular Filtration Rate 104 mL/min (>60); Est Glom Filt Rate - Afr Amer 126 mL/min (>60); Globulin 3.9 g/dL (2.2-4.2); Glucose 79 mg/dL (74-106); Potassium 3.5 mmol/L (3.5-5.1); Protein, Total 7.9 g/dL (6.4-8.2); Sodium Level 140 mmol/L (136-145)
[2018-07-27 12:46] LABS: Absolute Lymphocyte Count 1.55 X10^3/ul (0.83-4.51); Absolute Neutrophil Count 5.1 X10^3/uL (2.0-7.7); Basophil# 0.02 X10^3/uL; Basophil% 0.3 % (0-1); Eosinophil# 0.21 X10^3/uL; Eosinophils% 2.8 % (0-5); Hematocrit 39.5 % (37-47); Hemoglobin 12.8 g/dl (12.0-15.0); Lymphocyte # 1.55 X10^3/ul (4.0); Lymphocyte % 20.8 % (19-41); Mean Corp Hgb Conc 32.4 g/gl (32-36); Mean Corpuscular Hgb 28.6 pg (27.0-32.0); Mean Corpuscular Volume 88.4 fL (81-99); Neutrophil # 5.07 X10^3/uL (2.7-7.7); Platelet Count 271 K/mm3 (150-450); RBC Distribution Width CV 13.2 % (11.6-14.6); Red Blood Count 4.47 M/mm3 (4.2-5.4); White Blood Count 7.5 K/mm3 (4.4-11.0)
[2018-07-27 12:47] LABS: POSITIVE COUNT NO; POSITIVE DIFFERENTIAL NO; POSITIVE MORPHOLOGY NO
[2018-07-27 13:26] LABS: ALB/GLOB Ratio 1.1 RATIO (0.9-2.4); AST(SGOT) 96 U/L (15-37); Alanine Aminotransfer ALT/SGPT 133 U/L (13-56); Albumin, Serum 3.9 g/dL (3.2-5.0); Alkaline Phosphatase 73 U/L (45-117); Anion Gap 5 (5-15); BUN 13 mg/dL (7-18); BUN/Creat Ratio 19.5 RATIO (10-20); Calcium,Total 8.7 mg/dL (8.5-10.1); Chloride 108 mmol/L (98-107); Creatinine, Serum 0.67 mg/dL (0.55-1.02); EST Glomerular Filtration Rate 110 mL/min (>60); Est Glom Filt Rate - Afr Amer 133 mL/min (>60); Globulin 3.6 g/dL (2.2-4.2); Glucose 88 mg/dL (74-106); Potassium 3.8 mmol/L (3.5-5.1); Protein, Total 7.5 g/dL (6.4-8.2); Sodium Level 138 mmol/L (136-145)
== END 2018-07-27 12:53 | disposition home or self-care (01) ==
LOC: LAB 11:53
PROVIDERS: Family Provider Nurse Practitioner; PCP Nurse Practitioner; Referring Provider Psychiatry & Neurology Neurology; Visit Provider Psychiatry & Neurology Neurology
DX: G70.00 Myasthenia gravis without (acute) exacerbation (principal)
CPT/HCPCS: 36415; 80053; 85025

== ENCOUNTER 2018-11-09 14:44 | Outpatient (RCR) | payer OTHER, SELFPAY ==
[2018-07-19 11:23] VITALS: BMI 22.9
[2018-11-09 15:15] LABS: Absolute Lymphocyte Count 1.81 X10^3/ul (0.83-4.51); Absolute Neutrophil Count 5.5 X10^3/uL (2.0-7.7); Basophil# 0.03 X10^3/uL; Basophil% 0.4 % (0-1); Eosinophil# 0.13 X10^3/uL; Eosinophils% 1.7 % (0-5); Hematocrit 37.1 % (37-47); Hemoglobin 12.1 g/dl (12.0-15.0); Lymphocyte # 1.81 X10^3/ul (4.0); Lymphocyte % 23.2 % (19-41); Mean Corp Hgb Conc 32.6 g/gl (32-36); Mean Corpuscular Hgb 28.3 pg (27.0-32.0); Mean Corpuscular Volume 86.9 fL (81-99); Mean Platelet Vol. 9.3 fl (6.2-12.0); Monocyte# 0.37 X10^3/uL; Monocyte% 4.7 % (0-10); Neutrophil # 5.46 X10^3/uL (2.7-7.7); Neutrophil % 69.9 % (47-70); POSITIVE COUNT NO; POSITIVE DIFFERENTIAL NO; POSITIVE MORPHOLOGY NO; Platelet Count 248 K/mm3 (150-450); RBC Distribution Width CV 12.6 % (11.6-14.6); RBC Distribution Width SD 40.4 fl (35.1-43.9); Red Blood Count 4.27 M/mm3 (4.2-5.4); White Blood Count 7.8 K/mm3 (4.4-11.0)
[2018-11-09 15:39] LABS: ALB/GLOB Ratio 1.3 RATIO (0.9-2.4); AST(SGOT) 15 U/L (15-37); Alanine Aminotransfer ALT/SGPT 20 U/L (13-56); Alkaline Phosphatase 73 U/L (45-117); Anion Gap 8 (5-15); BUN 17 mg/dL (7-18); BUN/Creat Ratio 22.5 RATIO (10-20); Calcium,Total 8.8 mg/dL (8.5-10.1); Chloride 110 mmol/L (98-107); Creatinine, Serum 0.76 mg/dL (0.55-1.02); EST Glomerular Filtration Rate 96 mL/min (>60); Est Glom Filt Rate - Afr Amer 116 mL/min (>60); Globulin 3.1 g/dL (2.2-4.2); Glucose 128 mg/dL (74-106); Potassium 3.3 mmol/L (3.5-5.1); Protein, Total 7.1 g/dL (6.4-8.2); Sodium Level 142 mmol/L (136-145)
== END 2018-11-30 06:14 | disposition home or self-care (01) ==
LOC: LAB 14:44
PROVIDERS: Family Provider Nurse Practitioner; PCP Nurse Practitioner; Referring Provider Psychiatry & Neurology Neurology; Visit Provider Psychiatry & Neurology Neurology
DX: G70.00 Myasthenia gravis without (acute) exacerbation (principal)
CPT/HCPCS: 36415; 80053; 85025

== ENCOUNTER 2018-12-22 16:37 | Emergency (ER) | payer OTHER, SELFPAY ==
[2018-07-19 11:23] VITALS: BMI 22.9
[2018-12-22 16:38] VITALS: BP 125/76; PULSE 106; RESP 14; TEMP 36.9; O2SAT 100; BMI 24.3
--- NOTE | 2018-12-22 16:46 | RAD_ITS ---
HISTORY:seizure seizure EXAM: XR Chest 1 View: COMPARISON: May 04, 2018 FINDINGS: # of images incl. paperwork: 1 LINES/DEVICES: None. LUNGS: Radiographically clear. No consolidation, edema or effusion. No pneumothorax. MEDIASTINUM AND CARDIOVASCULAR STRUCTURES: Cardiac silhouette not enlarged. BONES AND SOFT TISSUES: Unremarkable. RAD/Chest 1 View (Portable) IMPRESSION: No radiographic evidence of acute cardiopulmonary disease. at 1702 Reported and signed by: Samia Mosley DO Electronically Signed: Samia Mosley DO at 17:01 EDT Tel , Service support ,
[2018-12-22 16:57] VITALS: BP 116/79; PULSE 96; RESP 23; O2SAT 100
[2018-12-22 17:00] LABS: Absolute Neutrophil Count 5.6 X10^3/uL (2.0-7.7); Basophil# 0.05 X10^3/uL; Basophil% 0.6 % (0-1); Eosinophil# 0.13 X10^3/uL; Eosinophils% 1.5 % (0-5); Hematocrit 40.2 % (37-47); Hemoglobin 13.5 g/dL (12.0-15.0); Lymphocyte % 26.7 % (19-41); Mean Corp Hgb Conc 33.6 g/dL (32-36); Mean Corpuscular Hgb 29.2 pg (27.0-32.0); Mean Corpuscular Volume 86.8 fL (81-99); Mean Platelet Vol. 9.3 fl (6.2-12.0); Monocyte# 0.56 X10^3/uL; Monocyte% 6.5 % (0-10); NRBC Flagged by Analyzer 0 % (0-5); Neutrophil # 5.56 X10^3/uL (2.7-7.7); Neutrophil % 64.5 % (47-70); Platelet Count 257 K/mm3 (150-450); RBC Distribution Width CV 13.2 % (11.6-14.6); RBC Distribution Width SD 40.5 fl (35.1-43.9); Red Blood Count 4.63 M/mm3 (4.2-5.4); White Blood Count 8.6 K/mm3 (4.4-11.0)
[2018-12-22 17:10] LABS: Anion Gap 5 (5-15); BUN 13 mg/dL (7-18); BUN/Creat Ratio 14.1 RATIO (10-20); Calcium,Total 8.8 mg/dL (8.5-10.1); Chloride 111 mmol/L (98-107); Creatinine, Serum 0.92 mg/dL (0.55-1.02); EST Glomerular Filtration Rate 76 mL/min (>60); Est Glom Filt Rate - Afr Amer 92 mL/min (>60); Estimated Creatinine Clearance 70.72 ml/min; Glucose 98 mg/dL (74-106); Potassium 3.4 mmol/L (3.5-5.1); Sodium Level 136 mmol/L (136-145)
[2018-12-22 17:39] LABS: Bacteria 0 SEEN /hpf (None Seen); Mucous, Urine 0 SEEN /hpf (<or=2+); Red Blood Cells-Urine 0 SEEN /hpf (0-5); White Blood Cells 0 SEEN /hpf (0-5)
[2018-12-22 17:42] LABS: Color, Urine Yellow (Yellow); Glucose, Dipstick Normal (Normal); Ketone-Dipstick Negative (Negative); Leukocyte Esterase-Dipstick 25 /ul (Negative); Nitrite-Dipstick Negative (Negative); Occult Blood-Urine Negative /ul (Negative); Protein-Dipstick Negative (Negative); Urine Bilirubin Dipstick Negative (Negative); Urine Clarity Clear (Clear); Urine Urobilinogen Normal (Normal)
[2018-12-22 17:45] LABS: Internal QC Validated? YES +Cl - CLEAR BKGD; Pregnancy, Urine Negative Negative
[2018-12-22 17:59] VITALS: BP 99/66; PULSE 81; RESP 17; O2SAT 100
[2018-12-22 18:01] LABS: Squamous Epithelial Cells - UA 0-5 SEEN /hpf (5-10)
--- NOTE | 2018-12-22 18:04 | ED.DCSUM_ITS ---
- ER Visit Summary Date of Service: 12/22/18 Chief Complaint: Seizure History of Present Illness: The patient is a 28 F who presents after having a seizure. She has a history of seizures in the past and takes Zonegran and Lamictal. She has been medication compliant. She had a tonic-clonic seizure today that lasted between 2 and 4 minutes. Her neurologist is Dr. Gilmore. She denies any recent illnesses except for some allergy-like symptoms. She took a Cold-roseline this morning to help with her symptoms. She has been under a lot of stress this week which may have contributed to her seizure. Her last seizure was a year ago. She has a history of myasthenia gravis and had a thymectomy last year. Physical Examination: Vital signs reviewed. HEENT exam unremarkable. Heart is regular rate and rhythm without murmurs. Lungs are clear to auscultation. Abdomen is soft and nontender. Extremities reveal some slight tenderness to the right patella. She does have some ecchymosis to this area. She also has a small abrasion over the patella on the right knee. Her extensor mechanism is intact. Neurologic exam normal. Test Results: Laboratory studies are unremarkable except for potassium 3.4, chloride 111, bicarb 20. Urinalysis is negative. negative. Chest x- ray reveals nothing acute as well. Emergency Department Course and Treatment: She has a normal neurologic exam currently. I do not feel she needs a new head CT scan since she has a history of seizures. She feels back to baseline. The patient was given Tylenol for her knee pain. This is likely a contusion and I do not feel she needs an x-ray. Patient will be discharged to follow-up with her neurologist. Treatment Plan: [] Disposition: Discharge Impression: Seizure, right patella contusion This note was generated with [employer] dictation software. It may contain incorrect words, spelling, and punctuation that were not noted in review of the chart prior to signing ED Disposition - Plan for ED Patient: Referrals: Macy Akins, DASHA-C [Primary Care Provider] -
--- NOTE | 2018-12-22 18:06 | ED.DEP ---
ED Disposition - Plan for ED Patient: Disposition: Home or Assisted Living Instructions: SEIZURE, Recurrent [Adult] Referrals: Macy Akins, DASHA-C [Primary Care Provider] -
[2018-12-22] MEDS: Acetaminophen 325 MG Tablet 650 MG PO (18:12)
[2018-12-22 18:18] VITALS: BP 108/69; PULSE 81; RESP 15; O2SAT 99
== END 2018-12-22 18:19 | disposition home or self-care (01) ==
PROVIDERS: Emergency Provider Emergency Medicine; Family Provider Nurse Practitioner; PCP Nurse Practitioner
DX: G40.909 Epilepsy, unspecified, not intractable, without status epilepticus (principal); S80.01XA Contusion of right knee, initial encounter; X58.XXXA Exposure to other specified factors, initial encounter; Y93.9 Activity, unspecified; Y92.89 Other specified places as the place of occurrence of the external cause; Y99.9 Unspecified external cause status
CPT/HCPCS: 71045; 80048; 81001; 81025; 85025; 99285

== ENCOUNTER → 2018-12-29 16:21 | Outpatient (CLI) | payer OTHER, SELFPAY ==
[2018-12-22 16:38] VITALS: BMI 24.3
[2019-01-05 13:05] LABS: Lamotrigine (Lamictal) Level 5.1 ug/mL (2.0-20.0)
== END ==
PROVIDERS: Family Provider Nurse Practitioner; PCP Nurse Practitioner; Referring Provider Nurse Practitioner Family; Visit Provider Nurse Practitioner Family
DX: R56.9 Unspecified convulsions (principal)
CPT/HCPCS: 36415; 82542

== ENCOUNTER 2019-03-26 18:09 | Observation (INO) | payer OTHER, SELFPAY ==
[2019-03-26 18:10] VITALS: BP 121/75; PULSE 107; RESP 10; TEMP 36.5; O2SAT 100
[2019-03-26 18:33] VITALS: BP 118/83; PULSE 107; RESP 18; O2SAT 99
[2019-03-26] MEDS: LORazepam 2 MG/ML Syringe 1 MG IV (19:28)
--- NOTE | 2019-03-26 19:30 | ED.RN ---
PT HAD A SEIZURE WITNESSED BY STAFF AND DR. MORE. ORAL SUCTION COMPLETED, PT WAS DROOLING AND EYES OPEN WITH SEVERE JERKING MOTIONS, MOTHER AND S.O. AT BEDSIDE.
[2019-03-26 20:00] LABS: Absolute Lymphocyte Count 2.27 X10^3/uL (0.83-4.51); Absolute Neutrophil Count 11.8 X10^3/uL (2.0-7.7); Basophil# 0.05 X10^3/uL; Basophil% 0.3 % (0-1); Eosinophil# 0.09 X10^3/uL; Eosinophils% 0.6 % (0-5); Hematocrit 39.9 % (37-47); Hemoglobin 12.8 g/dL (12.0-15.0); Lymphocyte # 2.27 X10^3/ul (4.0); Mean Corp Hgb Conc 32.1 g/dL (32-36); Mean Corpuscular Hgb 28.8 pg (27.0-32.0); Mean Corpuscular Volume 89.7 fL (81-99); Mean Platelet Vol. 9.9 fl (6.2-12.0); Monocyte# 0.85 X10^3/uL; Monocyte% 5.6 % (0-10); NRBC Flagged by Analyzer 0 % (0-5); Neutrophil # 11.81 X10^3/uL (2.7-7.7); Neutrophil % 77.8 % (47-70); Platelet Count 261 K/mm3 (150-450); RBC Distribution Width CV 12.9 % (11.6-14.6); RBC Distribution Width SD 41.9 fl (35.1-43.9); Red Blood Count 4.45 M/mm3 (4.2-5.4); White Blood Count 15.2 K/mm3 (4.4-11.0)
[2019-03-26 20:25] VITALS: BP 106/58; PULSE 109; RESP 15; O2SAT 99
[2019-03-26 20:50] LABS: ALB/GLOB Ratio 1.3 RATIO (0.9-2.4); AST(SGOT) 16 U/L (15-37); Alanine Aminotransfer ALT/SGPT 14 U/L (13-56); Alkaline Phosphatase 74 U/L (45-117); Anion Gap 12 (5-15); BUN 10 mg/dL (7-18); BUN/Creat Ratio 10.9 RATIO (10-20); Calcium,Total 8.4 mg/dL (8.5-10.1); Chloride 114 mmol/L (98-107); Creatinine, Serum 0.91 mg/dL (0.55-1.02); EST Glomerular Filtration Rate 76 mL/min (>60); Est Glom Filt Rate - Afr Amer 93 mL/min (>60); Estimated Creatinine Clearance 3.36 ml/min; Globulin 3.1 g/dL (2.2-4.2); Glucose 154 mg/dL (74-106); Potassium 3.2 mmol/L (3.5-5.1); Protein, Total 7.1 g/dL (6.4-8.2); Sodium Level 142 mmol/L (136-145)
[2019-03-26 20:55] LABS: Internal QC Validated? YES +Cl - CLEAR BKGD; Pregnancy, Serum, hCG Quali. NEGATIVE Negative
--- NOTE | 2019-03-26 21:37 | ED.RN ---
ATTEMPTED TO CALL [facility], PER YESSICA, THAT OFFICE DOES NOT TAKE CALLS ON THE WEEKEND FROM THE ER
--- NOTE | 2019-03-26 21:38 | HP.PCM_ITS ---
Problem List (1) Breakthrough seizure Status: Acute (2) Hypokalemia Status: Acute (3) Myasthenia Status: Chronic (4) Epilepsy Status: Chronic Qualifiers: Epilepsy type: unspecified History of Present Illness Date of Admission: 03/26/19 Chief Complaint: Breakthrough seizure The patient is a 28 y/o F w/ PMHx: Epilepsy, Myasthenia gravis who presents to the [facility] ED on 03/26/19 with history of breakthrough seizure prior to ED presentation, witnessed per family noted to have last approximately 30 seconds at approximately 6 PM with no loss of bowel or bladder but tongue biting with upper and lower extremity stiffness with no specifically noted movement of her eyes with fatigue and lethargy following with recurrent seizure while in the ED lasting less than 2 minutes, similar to appearance with recurrent postictal state following with most recent prior breakthrough seizure in January and prior to this in April of the year prior, following with Dr. Gilmore. Mother is present and does note that she feels as though her daughter was intimately confused during the day, generally. Patient denies any recent illnesses, nausea, emesis, diarrhea, abdominal pain, dysuria, headaches, fevers or chills. Work-up in the ED included T 97.7, heart rate 107, BP 121/75, respiratory rate 18, 99% on room air, CBC with WC 15.2, heme globin 12.8, platelet 261 with left shift, CMP with potassium 3.2, chloride 114, carbon dioxide 16, glucose 154, serum negative, pending lamotrigine level requested evaluation. Past Medical History Past Medical History (Chronic Problems): Chronic Problems Myasthenia (Chronic) Epilepsy (Chronic) Allergies levetiracetam [From Keppra] Allergy (Verified 05/04/18 12:41) Other Penicillins Allergy (Verified 05/04/18 12:41) Rash Home Medications: Ambulatory Orders Medication Instructions Recorded Lamotrigine [Lamictal] 200 mg PO BREAKFAST 12/23/17 Zonisamide 200 mg PO BREAKFAST 12/23/17 Lorazepam [Ativan] 1 mg PO DAILY PRN PRN 01/07/18 Pyridostigmine [place] [Mestinon] 60 mg PO TID 07/19/18 Lamotrigine [Lamictal] 400 mg PO QHS 03/26/19 Zonisamide [Zonegran] 300 mg PO QHS 03/26/19 Surgical History: - - Thymectomy, appendectomy. 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 Alcohol: None Drugs: None - *Family History Maternal History Items: - - Patient and family present denies any market maternal or paternal family history including heart disease, diabetes, cancer, seizures. Paternal History Items: - - Patient and family present denies any market maternal or paternal family history including heart disease, diabetes, cancer, seizures. Review of Systems Constitutional: Reports: Malaise, Weakness, Fatigue. Denies: Chills, Fever, Weight Change HEENT: Denies: Head Aches, Sinus Congestion, Sinus Drainage Cardiovascular: Denies: Chest Pain, Palpitations Respiratory: Denies: Cough, Shortness of breath at rest, Sputum production Gastrointestinal: Denies: Abdominal Pain, Nausea, Vomiting Genitourinary: Denies: Dysuria Musculoskeletal: Reports: Muscle pain. Denies: Joint Pain, Joint Tenderness Skin: Denies: Rash, Wounds Neurological: Reports: Confusion, Seizures. Denies: Focal weakness, Numbness, Tingling Psychiatric: Denies: Anxiety, Depression, Homicidal Ideations, Suicidal Ideations Hematologic/ Lymphatic: Denies: Easy Bruising, Easy Bleeding VTE Information - Inpt Only VTE Present on Admission: No VTE Mechan Device Prophylaxis: None VTE Pharm Prophylaxis ordered?: No Reason prophylaxis not ordered:: Treatment Not Indicated Patient Problems: Active and Suspected Problems Breakthrough seizure (Acute) Hypokalemia (Acute) Subjective: Seated upright in ED bed, very fatigued appearance, more alert and oriented x3 now. Objective: Physical Examination: General: awake, alert, oriented x 3 and cooperative, remarkably fatigued appe arance, seated upright in the ED bed in no apparent distress. Skin: normal color, turgor, no icterus, cyanosis. HEENT: AT/NC, EOMI, PERRLA, dry MM, noted lateral tongue bites with bruising, no active bleeding, no carotid bruits or JVD noted. Lungs: CTA bilaterally, moderate effort, mild decrease BL bases, no rales, ronchi or wheezing. Heart: Regular rate and rhythm; no gallop, rub audible. Abdomen: soft, thin habitus, NTTP, ND, normal BS, no HSM. Extremities: no cyanosis, clubbing, or edema. Neurological: patient awake, alert, oriented x 3, markedly improved following postictal phase; cognitive function appears to have returned to baseline although mother does state that she had been confused throughout the day; pupils equally reactive to light and accomodation; cranial nerves II-XII grossly normal, moving all 4 extremities, no focal deficits, strength preserved however given acute presentation globally weak, moderately. Psychiatric: affect appears fatigued, flat, no acute evidence of depressive or anxiety feelings. - Physical Exam Vitals/I&O's: Vital Signs Temp Pulse Resp BP Pulse Ox 97.7 F L 109 H 15 106/58 L 99 03/26/19 18:10 03/26/19 20:25 03/26/19 20:25 03/26/19 20:25 03/26/19 20:25 Oxygen Delivery Method Room Air Weight: 5 lb 3 oz Body Mass Index (BMI) 0.0 Finger Stick Blood Glucose 99 Laboratory Results 03/26/19 19:31: Sodium 142, Potassium 3.2 L, Chloride 114 H, Carbon Dioxide 16.0 L, Anion Gap 12, BUN 10, Creatinine 0.91, Estim Creat Clear Calc 3.36, Est GFR (MDRD) Af Amer 93, Est GFR (MDRD) Non-Af 76, BUN/Creatinine Ratio 10.9, Glucose 154 H, Calcium 8.4 L, Total Bilirubin 0.30, AST 16, ALT 14, Alkaline Phosphatase 74, Total Protein 7.1, Albumin 4.0, Globulin 3.1, Albumin/Globulin Ratio 1.3 03/26/19 19:35: WBC 15.2 H, RBC 4.45, Hgb 12.8, Hct 39.9, MCV 89.7, MCH 28.8, MCHC 32.1, RDW Std Deviation 41.9, RDW Coeff of Mariella 12.9, Plt Count 261, MPV 9.9, Immature Gran % (Auto) 0.700, Neut % (Auto) 77.8 H, Lymph % (Auto) 15.0 L, [place] % (Auto) 5.6, Eos % (Auto) 0.6, Baso % (Auto) 0.3, Absolute Neuts (auto) 11.8 H, Absolute Lymphs (auto) 2.27, Nucleated RBC % 0 03/26/19 19:35: Serum , Qual NEGATIVE 03/26/19 19:35: Lamotrigine Pending Assessment/Plan All Active Problems Slurred speech (Acute) Arm weakness (Acute) Breakthrough seizure (Acute) Hypokalemia (Acute) The patient is a 28 y/o F w/ PMHx: Epilepsy, Myasthenia gravis who presents to the [facility] ED on 03/26/19 with history of breakthrough seizure prior to ED presentation, witnessed per family noted to have last approximately 30 seconds at approximately 6 PM with no loss of bowel or bladder but tongue biting with upper and lower extremity stiffness with no specifically noted movement of her eyes with fatigue and lethargy following with recurrent seizure in the ED. 1. Breakthrough seizure with history of epilepsy: Seizure witnessed with postictal state both at home and while in the ED. Improved mental status in the emergency room. Will admit to PCU, maintain on telemetry in PCU on seizure precautions, given several breakthrough seizures now will obtain EEG as well as brain MRI, obtain TSH and magnesium level, requested urine drug screen also. Will place on Dilantin IV with load given Keppra noted allergy, continuation of Zonegran, Lamictal regimen. Pending Neurology consultation. PRN ativan IV for seizure activity. 2. Hyperglycemia: Admission glucose 154, likely stress response, hemoglobin A1c pending. 3. Hypokalemia: Admission K+ 3.2, supplementation given, repeat level in AM. 4. Myasthenia gravis: We will continue patient home Mestinon regimen. 5. DVT prophylaxis: Low risk. Code Visit Inpatient E&M: 45050 Init Hosp L3
--- NOTE | 2019-03-26 21:54 | ED.RN ---
PT PLACED ON BEDPAN TO OBTAIN VISTA URINE. PT IS A&O X3.
[2019-03-26 22:00] VITALS: BP 121/52; PULSE 108; RESP 16
--- NOTE | 2019-03-26 22:12 | ED.RN ---
CLOUDY YELLOW URINE OBTAINED AND SENT TO LAB.
[2019-03-26 22:25] LABS: Amphetamine Urine VISTA NEGATIVE (<1000 ng/mL); Barbiturate Urine VISTA NEGATIVE (< 200 ng/mL); Benzodiazepine Urine VISTA NEGATIVE (< 200 ng/mL); Cocaine Urine VISTA NEGATIVE (< 300 ng/mL); Ecstacy Urine VISTA NEGATIVE (< 500 ng/mL); Methadone Urine VISTA NEGATIVE (< 300 ng/mL); PCP Urine VISTA NEGATIVE (< 25 ng/mL); THC Urine VISTA NEGATIVE (< 50 ng/mL); Vista UDS pH Range 7
--- NOTE | 2019-03-26 22:29 | ED.DCSUM_ITS ---
- ER Visit Summary Date of Service: 03/26/19 Chief Complaint: Seizure History of Present Illness: The patient is a 28 F who presents with a seizure that occurred today. Patient had a generalized tonic-clonic seizure at home. This was witnessed by family. Patient has a history of seizures and is on lamotrigine. Patient is also on pyridostigmine and zonisamide. Family states that her last seizure was January 2019. Patient follows with Dr. Gilmore for neurology. Physical Examination: Vital signs are stable except for mild tachycardia of 107. Patient is afebrile. Patient is in no acute distress. Patient had a second seizure here in the emergency department. Patient was postictal on examination. Oral mucosa is pink and moist. Neck is supple. Trachea is midline. Heart was regular and tachycardic. Lungs are clear and equal bilaterally. Abdomen is soft and nontender. Cranial nerves II through XII are otherwise intact. Test Results: CBC shows a leukocytosis of 15.2. Comprehensive metabolic profile was obtained. Potassium was 3.2. Glucose was 154. CO2 is slightly low at 16. The remaining labs are within normal limits. Emergency Department Course and Treatment: Patient was given a dose of Ativan here. Patient was more awake and alert on reevaluation. Dr. Gilmore was paged but did not return his page. Case was discussed with the hospitalist. Patient will be admitted for breakthrough seizure. Patient and family understood and were agreeable with the plan. All questions were answered. Disposition: Admit to hospital Impression: Breakthrough seizures This note was generated with [employer] dictation software. It may contain incorrect words, spelling, and punctuation that were not noted in review of the chart prior to signing ED Disposition - Plan for ED Patient: Disposition: Acute Care Hospital [facility] Diagnosis: Breakthrough seizure Referrals: Macy Akins, DASHA-C [Primary Care Provider] -
[2019-03-26 23:18] VITALS: BP 104/53; BP 109/58; PULSE 102; RESP 18; TEMP 36.7; O2SAT 96
[2019-03-26 23:19] VITALS: PULSE 110
[2019-03-26 23:26] VITALS: BMI 22.1
[2019-03-26 23:36] VITALS: BMI 22.1
[2019-03-26 23:53] LABS: Magnesium 2.2 mg/dL (1.6-2.6); Thyroid Stim Hormone (TSH) 2.64 uIU/mL (0.358-3.74)
[2019-03-26 23:57] LABS: Hemoglobin A1c 4.7 % (4.2-6.3)
[2019-03-27] VITALS (12 sets, daily range): BP systolic 96–104; BP diastolic 48–60; PULSE 86–121; RESP 15–18; TEMP 36.6–37.2; O2SAT 95–100
[2019-03-27] MEDS: 0.9% Normal Saline 1,000 ML 150 ML IV ×2 (00:16→08:10)
[2019-03-27] MEDS: 0.9% Saline Lock 10 ML Syringe IV (00:21)
[2019-03-27] MEDS: Pyridostigmine Bromide 60 MG Tablet PO ×3 (00:26→13:28)
[2019-03-27] MEDS: ZONISAMIDE 100 MG CAPSULE 300 MG PO (00:27)
[2019-03-27] MEDS: lamoTRIgine 100 MG Tablet 400 MG PO (00:28)
[2019-03-27] MEDS: Acetaminophen 325 MG Tablet 650 MG PO ×3 (00:28→14:25)
[2019-03-27 05:58] LABS: Absolute Lymphocyte Count 1.29 X10^3/uL (0.83-4.51); Absolute Neutrophil Count 10.1 X10^3/uL (2.0-7.7); Basophil# 0.03 X10^3/uL; Basophil% 0.2 % (0-1); Eosinophil# 0.05 X10^3/uL; Eosinophils% 0.4 % (0-5); Hematocrit 36.1 % (37-47); Hemoglobin 11.8 g/dL (12.0-15.0); Lymphocyte # 1.29 X10^3/ul (4.0); Lymphocyte % 10.5 % (19-41); Mean Corp Hgb Conc 32.7 g/dL (32-36); Mean Corpuscular Hgb 28.7 pg (27.0-32.0); Mean Corpuscular Volume 87.8 fL (81-99); Mean Platelet Vol. 9.6 fl (6.2-12.0); Monocyte# 0.73 X10^3/uL; Monocyte% 5.9 % (0-10); NRBC Flagged by Analyzer 0 % (0-5); Neutrophil # 10.14 X10^3/uL (2.7-7.7); Neutrophil % 82.7 % (47-70); Platelet Count 210 K/mm3 (150-450); Red Blood Count 4.11 M/mm3 (4.2-5.4); White Blood Count 12.3 K/mm3 (4.4-11.0)
[2019-03-27 06:23] LABS: Anion Gap 5 (5-15); BUN 8 mg/dL (7-18); BUN/Creat Ratio 14.1 RATIO (10-20); Calcium,Total 8.2 mg/dL (8.5-10.1); Chloride 115 mmol/L (98-107); Creatinine, Serum 0.57 mg/dL (0.55-1.02); EST Glomerular Filtration Rate 133 mL/min (>60); Est Glom Filt Rate - Afr Amer 161 mL/min (>60); Estimated Creatinine Clearance 119.38 ml/min; Glucose 86 mg/dL (74-106); Potassium 4.1 mmol/L (3.5-5.1); Sodium Level 142 mmol/L (136-145)
[2019-03-27] MEDS: ZONISAMIDE 100 MG CAPSULE 200 MG PO (08:21)
--- NOTE | 2019-03-27 09:00 | MRI_ITS ---
STUDY: MRI BRAIN WITH AND WITHOUT CONTRAST REASON FOR EXAM: Female, 28 years old. Breakthrough seizure TECHNIQUE: Standardized multiplanar fat and water weighted pulse sequences were obtained. IV Dotarem 11 was administered for the contrast portion of the examination. COMPARISON: Brain MRI 02/11/2018. FINDINGS: Normal size of the ventricles and extra-axial spaces for the patient's age. Normal white matter tracts of the supratentorial brain. Normal bilateral basal ganglia. Normal thalami. There is no extra-axial fluid accumulation. Normal flow voids within the major intracranial circulation suggesting patency by spin echo criteria. Normal venous enhancement. There is no enhancing intra-axial or extra-axial abnormality. Normal sella turcica, pituitary gland, infundibular stalk, optic chiasm and hypothalamus. Normal tectal plate and pineal gland. Normal midbrain, irma and medulla. Normal cerebellum. Normal basal cisterns. Normal bilateral temporal bones. Normal bilateral internal auditory canals. No demonstrated orbital abnormality, within the constraints of a routine brain study. Normal visualized paranasal sinuses. Normal calvarium and skull base. Normal visualized soft tissue structures. Normal visualized upper cervical spine. MRI/Brain W/WO Contrast IMPRESSION: Normal unenhanced and enhanced MRI of the brain. Electronically Signed: Malvin Carter, at 14:01 EST Tel , Service support ,
[2019-03-27] MEDS: lamoTRIgine 100 MG Tablet 200 MG PO (10:34)
--- NOTE | 2019-03-27 11:07 | NURSING ---
[facility] late d/t patient being off floor for MRI. Pt c/o IV site pain, especially with flush. IV to L hand d/c'ed.
--- NOTE | 2019-03-27 13:00 | PCM.PROGNOTE ---
Patient Problems: Active and Suspected Problems Breakthrough seizure (Acute) Hypokalemia (Acute) Subjective: Patient seen and examined. Denies further seizure activity. Patient refusing neurology evaluation. EEG and MRI pending. Patient follows with Dr. Gilmore however Dr. Gilmore is no longer available for consult at this facility. - Physical Exam Vitals/I&O's: Vital Signs Temp Pulse Resp BP Pulse Ox 98.0 F 97 16 102/59 L 100 03/27/19 10:26 03/27/19 11:04 03/27/19 10:26 03/27/19 10:26 03/27/19 10:26 Oxygen Delivery Method Room Air Weight: 125 lb 0.034 oz Body Mass Index (BMI) 22.1 Finger Stick Blood Glucose 99 Intake and Output for Last 24 Hours 03/25/19 03/26/19 03/27/19 23:59 23:59 23:59 Intake Total 0 / 0 1719.0 / 1719.0 Output Total 0 / 0 0 / 0 Balance 0 / 0 1719.0 / 1719.0 General: Alert, Oriented x3, Cooperative HEENT: Atraumatic, PERRLA, EOMI, Normocephalic Neck: Supple, No JVD, Negative Carotid Bruits Lungs: Clear to auscultation, Normal air movement Cardiovascular: Regular rate, Regular Rhythm, Normal S1, Normal S2, No murmurs Abdomen: Bowel Sounds Present, Soft, Non Tender Extremities: No clubbing, No cyanosis, No edema, Capillary Refill Less than 3 Seconds Skin: No rashes, No breakdown Musculoskeletal: No Tenderness to Palpation of Joints or Extremities Neurological: Cranial nerves II-XII grossly intact, Neuro grossly intact Psych/Mental Status: Normal Affect, Appropriate Laboratory Results 03/26/19 19:31: Sodium 142, Potassium 3.2 L, Chloride 114 H, Carbon Dioxide 16.0 L, Anion Gap 12, BUN 10, Creatinine 0.91, Estim Creat Clear Calc 3.36, Est GFR (MDRD) Af Amer 93, Est GFR (MDRD) Non-Af 76, BUN/Creatinine Ratio 10.9, Glucose 154 H, Calcium 8.4 L, Total Bilirubin 0.30, AST 16, ALT 14, Alkaline Phosphatase 74, Total Protein 7.1, Albumin 4.0, Globulin 3.1, Albumin/Globulin Ratio 1.3 03/26/19 19:31: Magnesium 2.2, TSH 2.64 03/26/19 19:31: Hemoglobin A1c 4.7 03/26/19 19:35: WBC 15.2 H, RBC 4.45, Hgb 12.8, Hct 39.9, MCV 89.7, MCH 28.8, MCHC 32.1, RDW Std Deviation 41.9, RDW Coeff of Mariella 12.9, Plt Count 261, MPV 9.9, Immature Gran % (Auto) 0.700, Neut % (Auto) 77.8 H, Lymph % (Auto) 15.0 L, [place] % (Auto) 5.6, Eos % (Auto) 0.6, Baso % (Auto) 0.3, Absolute Neuts (auto) 11.8 H, Absolute Lymphs (auto) 2.27, Nucleated RBC % 0 03/26/19 19:35: Serum , Qual NEGATIVE 03/26/19 19:35: Lamotrigine Pending 03/26/19 22:05: Urine Opiates Screen NEGATIVE, Urine Methadone Screen NEGATIVE, Ur Barbiturates Screen NEGATIVE, Ur Phencyclidine Scrn NEGATIVE, Ur Amphetamines Screen NEGATIVE, U Methamphetamin-MDMA NEGATIVE, U Benzodiazepines Scrn NEGATIVE, Urine Cocaine Screen NEGATIVE, U Cannabinoids Screen NEGATIVE, Ur Drug Screen Comment 03/27/19 05:35: Sodium 142, Potassium 4.1, Chloride 115 H, Carbon Dioxide 22.0, Anion Gap 5, BUN 8, Creatinine 0.57, Estim Creat Clear Calc 119.38, Est GFR (MDRD) Af Amer 161, Est GFR (MDRD) Non-Af 133, BUN/Creatinine Ratio 14.1, Glucose 86, Calcium 8.2 L 03/27/19 05:35: WBC 12.3 H, RBC 4.11 L, Hgb 11.8 L, Hct 36.1 L, MCV 87.8, MCH 28.7, MCHC 32.7, RDW Std Deviation 42.0, RDW Coeff of Mariella 13.0, Plt Count 210, MPV 9.6, Immature Gran % (Auto) 0.300, Neut % (Auto) 82.7 H, Lymph % (Auto) 10.5 L, [place] % (Auto) 5.9, Eos % (Auto) 0.4, Baso % (Auto) 0.2, Absolute Neuts (auto) 10.1 H, Absolute Lymphs (auto) 1.29, Nucleated RBC % 0 Current Medications Acetaminophen (Tylenol) 650 mg PO Q6H PRN PRN PRN Reason: Non-cardiac pain (mod-severe) Last Admin: 03/27/19 08:18 Dose: 325 mg Documented by: Albuterol Sulfate (Ventolin Aerosols) 2.5 mg INHALATION Q2H PRN PRN PRN Reason: dyspnea, wheezing Dextrose (D50w Syringe) 0 gm IV X1 PRN; Protocol PRN Reason: Hypoglycemia Glucagon () 1 mg IM .X1 PRN PRN Reason: Hypoglycemia Hydralazine HCl (Apresoline Iv) 10 mg IV Q4H PRN PRN PRN Reason: SBP > 160 Sodium Chloride () 1,000 mls @ 150 mls/hr IV .Q6H40M [facility] Last Infusion: 03/27/19 09:00 Dose: 0 mls/hr Documented by: Sodium Chloride () 250 mls @ 15 mls/hr IV .[id number] PRN PRN Reason: Saline Flush Lamotrigine (Lamictal) 400 mg PO QHS [facility] Last Admin: 03/27/19 00:28 Dose: 400 mg Documented by: Lamotrigine (Lamictal) 200 mg PO BREAKFAST [facility] Last Admin: 03/27/19 10:34 Dose: 200 mg Documented by: Lorazepam (Ativan) 1 mg IV PRN PRN PRN Reason: SEIZURES Ondansetron HCl (Zofran) 4 mg IV Q8H PRN PRN PRN Reason: NAUSEA/VOMITING Phenytoin Sodium (Dilantin) 100 mg IV TID [facility] Pyridostigmine [place] (Mestinon) 60 mg PO TID [facility] Last Admin: 03/27/19 06:05 Dose: 60 mg Documented by: Sodium Chloride () 10 - 40 ml IV UD PRN PRN Reason: SALINE FLUSH Last Admin: 03/27/19 00:21 Dose: 10 ml Documented by: Zonisamide (Zonisamide) 300 mg PO QHS [facility] Zonisamide (Zonisamide) 200 mg PO BREAKFAST [facility] Last Admin: 03/27/19 08:21 Dose: 200 mg Documented by: Medical Necessity - Tobacco Use Smoking Status: Never smoker Tobacco Use: Secondhand Assessment/Plan All Active Problems Slurred speech (Acute) Arm weakness (Acute) Breakthrough seizure (Acute) Hypokalemia (Acute) 1. Breakthrough seizure with history of epilepsy-no further seizure activity overnight or this morning. EEG and MRI of brain report pending. Urine drug screen negative. Lamotrigine level pending. Patient refusing neurology consultation. Continue Dilantin 100 mg IV 3 times daily through today with transition to oral tomorrow. Seizure precautions. Patient will continue outpatient follow-up with Dr. Gilmore who is her primary neurologist. 2. Myasthenia gravis-continue home Mestinon regimen. DVT prophylaxis-not indicated, low risk. This patient was seen by BECCA Hogan under the supervision of Dr. Alvarez.
--- NOTE | 2019-03-27 13:08 | EEG ---
- Electroencephalogram Date of service 03/27/2019 History EEG is being done in this 28 yr F to rule out seizures EEG Description: This is an 18 channel EEG with 10-20 lead placement system. Bipolar montages, and Referential montages were reviewed. Photic stimulation and Hyperventilation were performed. The posterior dominant rhythm is 9 HZ synchronous, symmetric, reacting to eye opening and closing. Photo stimulation elicited normal driving response and abnormal paroxysmal response. Hyperventilation elicited abnormal photoparoxysmal response. Sleep was identified. There is no abnormal background slowing noted. There was intermittent generalized epileptiform discharges noted during the record but no electrographic seizures noted during this recording. EEG Interpretation This is an abnormal EEG due to presence of intermittent generalized epileptiform discharge. No electrographic seizures noted during the record.
[2019-03-27] MEDS: Phenytoin Na 100 MG/2 ML Vial IV (13:28)
--- NOTE | 2019-03-27 13:36 | CASEMGMT ---
This RN CM to room to complete CM assessment and pt is getting care at this time. Will attempt again later. SStkevon RN CM
--- NOTE | 2019-03-27 14:26 | CASEMGMT ---
VANESSA LLAMAS assessment: Face to Face with patient for initial transition planning/care coordination assessment. VANESSA LLAMAS introduced self and role at [facility], pt voices understanding and consents to assessment at this time. Pt is sitting up in bed in no distress at this time. Pt is A/Ox4 at this time and answers all questions appropriately at this time. Care providers, pharmacy, and demographics verified at this time. PCP: Mable Specialists: alexandra Gilmore Preferred Pharmacy: [facility] Insurance: MMO Prescription Benefit: MMO Living Will/HPOA: Pt states does not have LW/HPOA and declines info at this time. LNOK: Warren/Genny Morin, parents Living Arrangements: Pt states lives with sig other in apt and states no concerns at home at this time. Pt states is independent with ADL's. Transportation: Pt states is not able to drive d/t her epilepsy but states no transportation concerns at this time. DME/HHC: Pt states no current DME or need for any at this time. Pt states no hx of HHC or SNF. Pt states no concerns with going home at time of discharge. 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 Pt states does not smoke or drink ETOH. Pt states no further concerns/needs at this time. CM to follow for any further discharge planning/needs. Advised pt to ask for CM if any further questions/concerns/needs arise, voices understanding. Pt Goal: Home Plan: [place] VANESSA LLAMAS
--- NOTE | 2019-03-27 15:18 | PCM.DC ---
- Discharge Diagnoses Current Active Problems: Current Active and Chronic Problems Breakthrough seizure (Acute) Myasthenia (Chronic) Hypokalemia (Acute) You will use the following diet at home:: No restrictions Discharge Activity: May Not Drive Allergies/Adverse Reactions: Allergies levetiracetam [From [facility]era] Allergy (Verified 05/04/18 12:41) Other Penicillins Allergy (Verified 05/04/18 12:41) Rash Medications to take at Discharge Lamotrigine [Lamictal] 200 mg PO BREAKFAST 12/23/17 Zonisamide 200 mg PO BREAKFAST 12/23/17 Lorazepam [Ativan] 1 mg PO DAILY PRN PRN 01/07/18 Pyridostigmine [place] [Mestinon] 60 mg PO TID 07/19/18 Lamotrigine [Lamictal] 400 mg PO QHS 03/26/19 Zonisamide [Zonegran] 300 mg PO QHS 03/26/19 Phenytoin Na [Dilantin] 100 mg PO TID #90 cap 03/27/19 The following prescriptions were given: Phenytoin Na [Dilantin] 100 mg PO TID #90 cap Transmission Status: Pending to [facility] Primary Care Physician: Macy Akins NP-C [Primary Care Provider] - Please follow up with your Primary Care Physician in: 1 Week Test Results: Test results from this visit will be discussed in further detail at your follow-up appointment, if applicable. Please Follow Up With: Gerald Gilmore MD When: 1 Week Proposed Discharge Date: 03/27/19
--- NOTE | 2019-03-27 15:19 | PCM.DC.SUM ---
<Louise Chi - Last Filed: 03/27/19 15:25> Discharge Date and Diagnosis Date of Admission: 03/26/19 Date of Discharge: 03/27/19 - Primary Discharge Diagnosis Active and Suspected Problems 1. Breakthrough seizure with history of epilepsy 2. Myasthenia gravis - Secondary Discharge Diagnosis Chronic Problems Myasthenia (Chronic) Epilepsy (Chronic) Hospital Course and Treatment Imaging Results: Diagnostic Data Brain MRI 03/27/19 09:00 IMPRESSION: Normal unenhanced and enhanced MRI of the brain. Electronically Signed: Malvin Carter, at 14:01 EST Tel , Service support , Operations: None Procedures: Electroencephalogram Summary of Care Provided: The patient is a 28 year old F admitted 03/26/2019 due to breakthrough seizure. 1. Breakthrough seizure with history of epilepsy-no further seizure activity overnight or this morning. EEG abnormal due to presence of intermittent generalized epileptiform discharge. MRI of brain normal. Urine drug screen negative. Lamotrigine level pending. Patient refusing neurology consultation. Continue Dilantin 100 mg p.o. 3 times daily. Patient instructed she should not get while on Dilantin. Recommend referral to epileptic specialist. Follow-up with primary neurologist, Dr. Gilmore in [address] week[address] Patient may not drive. Follow-up with primary care provider in 1 week. Patient will need daily and level monitoring by primary care provider or neurology. 2. Myasthenia gravis-continue home Mestinon regimen. General: Alert, Oriented x3, Cooperative HEENT: Atraumatic, PERRLA, EOMI, Normocephalic Neck: Supple, No JVD, Negative Carotid Bruits Lungs: Clear to auscultation, Normal air movement Cardiovascular: Regular rate, Regular Rhythm, Normal S1, Normal S2, No murmurs Abdomen: Bowel Sounds Present, Soft, Non Tender Extremities: No clubbing, No cyanosis, No edema, Capillary Refill Less than 3 Seconds Skin: No rashes, No breakdown Musculoskeletal: No Tenderness to Palpation of Joints or Extremities Neurological: Cranial nerves II-XII grossly intact, Neuro grossly intact Psych/Mental Status: Normal Affect, Appropriate Patient seen and examined prior to discharge. Physical assessment as noted above. Patient is stable for discharge with follow up recommendations as noted above. This patient was seen by BECCA Hogan under the supervision of Dr. Alvarez. - Physical Exam Vitals/I&O's: Vital Signs Temp Pulse Resp BP Pulse Ox 98.3 F 94 15 98/55 L 100 03/27/19 13:19 03/27/19 15:04 03/27/19 13:19 03/27/19 13:19 03/27/19 13:19 Oxygen Delivery Method Room Air Weight: 125 lb 0.034 oz Body Mass Index (BMI) 22.1 Finger Stick Blood Glucose 99 Intake and Output for Last 24 Hours 03/25/19 03/26/19 03/27/19 23:59 23:59 23:59 Intake Total 0 / 0 1719.0 / 1719.0 Output Total 0 / 0 0 / 0 Balance 0 / 0 1719.0 / 1719.0 Laboratory Results 03/26/19 19:31: Sodium 142, Potassium 3.2 L, Chloride 114 H, Carbon Dioxide 16.0 L, Anion Gap 12, BUN 10, Creatinine 0.91, Estim Creat Clear Calc 3.36, Est GFR (MDRD) Af Amer 93, Est GFR (MDRD) Non-Af 76, BUN/Creatinine Ratio 10.9, Glucose 154 H, Calcium 8.4 L, Total Bilirubin 0.30, AST 16, ALT 14, Alkaline Phosphatase 74, Total Protein 7.1, Albumin 4.0, Globulin 3.1, Albumin/Globulin Ratio 1.3 03/26/19 19:31: Magnesium 2.2, TSH 2.64 03/26/19 19:31: Hemoglobin A1c 4.7 03/26/19 19:35: WBC 15.2 H, RBC 4.45, Hgb 12.8, Hct 39.9, MCV 89.7, MCH 28.8, MCHC 32.1, RDW Std Deviation 41.9, RDW Coeff of Mariella 12.9, Plt Count 261, MPV 9.9, Immature Gran % (Auto) 0.700, Neut % (Auto) 77.8 H, Lymph % (Auto) 15.0 L, Dolores % (Auto) 5.6, Eos % (Auto) 0.6, Baso % (Auto) 0.3, Absolute Neuts (auto) 11.8 H, Absolute Lymphs (auto) 2.27, Nucleated RBC % 0 03/26/19 19:35: Serum , Qual NEGATIVE 03/26/19 19:35: Lamotrigine Pending 03/26/19 22:05: Urine Opiates Screen NEGATIVE, Urine Methadone Screen NEGATIVE, Ur Barbiturates Screen NEGATIVE, Ur Phencyclidine Scrn NEGATIVE, Ur Amphetamines Screen NEGATIVE, U Methamphetamin-MDMA NEGATIVE, U Benzodiazepines Scrn NEGATIVE, Urine Cocaine Screen NEGATIVE, U Cannabinoids Screen NEGATIVE, Ur Drug Screen Comment 03/27/19 05:35: Sodium 142, Potassium 4.1, Chloride 115 H, Carbon Dioxide 22.0, Anion Gap 5, BUN 8, Creatinine 0.57, Estim Creat Clear Calc 119.38, Est GFR (MDRD) Af Amer 161, Est GFR (MDRD) Non-Af 133, BUN/Creatinine Ratio 14.1, Glucose 86, Calcium 8.2 L 03/27/19 05:35: WBC 12.3 H, RBC 4.11 L, Hgb 11.8 L, Hct 36.1 L, MCV 87.8, MCH 28.7, MCHC 32.7, RDW Std Deviation 42.0, RDW Coeff of Mariella 13.0, Plt Count 210, MPV 9.6, Immature Gran % (Auto) 0.300, Neut % (Auto) 82.7 H, Lymph % (Auto) 10.5 L, Dolores % (Auto) 5.9, Eos % (Auto) 0.4, Baso % (Auto) 0.2, Absolute Neuts (auto) 10.1 H, Absolute Lymphs (auto) 1.29, Nucleated RBC % 0 Current Medications Acetaminophen (Tylenol) 650 mg PO Q6H PRN PRN PRN Reason: Non-cardiac pain (mod-severe) Last Admin: 03/27/19 14:25 Dose: 650 mg Documented by: Albuterol Sulfate (Ventolin Aerosols) 2.5 mg INHALATION Q2H PRN PRN PRN Reason: dyspnea, wheezing Dextrose (D50w Syringe) 0 gm IV X1 PRN; Protocol PRN Reason: Hypoglycemia Glucagon () 1 mg IM .X1 PRN PRN Reason: Hypoglycemia Hydralazine HCl (Apresoline Iv) 10 mg IV Q4H PRN PRN PRN Reason: SBP > 160 Sodium Chloride () 1,000 mls @ 150 mls/hr IV .Q6H40M [facility] Last Infusion: 03/27/19 13:30 Dose: 150 mls/hr Documented by: Sodium Chloride () 250 mls @ 15 mls/hr IV .[id number] PRN PRN Reason: Saline Flush Lamotrigine (Lamictal) 400 mg PO QHS [facility] Last Admin: 03/27/19 00:28 Dose: 400 mg Documented by: Lamotrigine (Lamictal) 200 mg PO BREAKFAST [facility] Last Admin: 03/27/19 10:34 Dose: 200 mg Documented by: Lorazepam (Ativan) 1 mg IV PRN PRN PRN Reason: SEIZURES Ondansetron HCl (Zofran) 4 mg IV Q8H PRN PRN PRN Reason: NAUSEA/VOMITING Phenytoin Sodium (Dilantin) 100 mg PO TID [facility] Pyridostigmine [place] (Mestinon) 60 mg PO TID [facility] Last Admin: 03/27/19 13:28 Dose: 60 mg Documented by: Sodium Chloride () 10 - 40 ml IV UD PRN PRN Reason: SALINE FLUSH Last Admin: 03/27/19 00:21 Dose: 10 ml Documented by: Zonisamide (Zonisamide) 300 mg PO QHS [facility] Zonisamide (Zonisamide) 200 mg PO BREAKFAST [facility] Last Admin: 03/27/19 08:21 Dose: 200 mg Documented by: Discharge Diet: No Restrictions Discharge Activity: May Not Drive Home Medications: Medications to take at Discharge Lamotrigine [Lamictal] 200 mg PO BREAKFAST 12/23/17 Zonisamide 200 mg PO BREAKFAST 12/23/17 Lorazepam [Ativan] 1 mg PO DAILY PRN PRN 01/07/18 Pyridostigmine [place] [Mestinon] 60 mg PO TID 07/19/18 Lamotrigine [Lamictal] 400 mg PO QHS 03/26/19 Zonisamide [Zonegran] 300 mg PO QHS 03/26/19 Phenytoin Na [Dilantin] 100 mg PO TID #90 cap 03/27/19 Following Prescrptions Were Given to Patient: Phenytoin Na [Dilantin] 100 mg PO TID #90 cap Transmission Status: Received by [facility] Primary Care Physician: Macy Akins, SEPARATOR TENDER-C [Primary Care Provider] - Please follow up with your Primary Care Physician in: 1 Week Please Follow Up With: Gerald Gilmore MD When: 1 Week Disposition: Home Minutes spent on discharge:: 35 Patient Condition:: Stable Medical Necessity - Tobacco Use Smoking Status: Never smoker Tobacco Use: Secondhand Meaningful Use Info Meaningful Use Diagnoses (Choose all that apply): None applicable <Reddy Alvarez F - Last Filed: 03/27/19 17:46> Discharge Date and Diagnosis - Secondary Discharge Diagnosis Chronic Problems Myasthenia (Chronic) Epilepsy (Chronic) Hospital Course and Treatment Imaging Results: 03/27/19 09:00 Brain W/WO Contrast [MRI] Urgent Summary of Care Provided: The patient is a 28 year old F [] - Physical Exam Vitals/I&O's: Vital Signs Temp Pulse Resp BP Pulse Ox 98.9 F 86 16 97/53 L 98 03/27/19 15:32 03/27/19 15:32 03/27/19 15:32 03/27/19 15:32 03/27/19 15:32 Oxygen Delivery Method Room Air Weight: 125 lb 0.034 oz Body Mass Index (BMI) 22.1 Finger Stick Blood Glucose 99 Intake and Output for Last 24 Hours 03/25/19 03/26/19 03/27/19 23:59 23:59 23:59 Intake Total 0 / 0 1719.0 / 1719.0 Output Total 0 / 0 0 / 0 Balance 0 / 0 1719.0 / 1719.0 Laboratory Results 03/26/19 19:31: Sodium 142, Potassium 3.2 L, Chloride 114 H, Carbon Dioxide 16.0 L, Anion Gap 12, BUN 10, Creatinine 0.91, Estim Creat Clear Calc 3.36, Est GFR (MDRD) Af Amer 93, Est GFR (MDRD) Non-Af 76, BUN/Creatinine Ratio 10.9, Glucose 154 H, Calcium 8.4 L, Total Bilirubin 0.30, AST 16, ALT 14, Alkaline Phosphatase 74, Total Protein 7.1, Albumin 4.0, Globulin 3.1, Albumin/Globulin Ratio 1.3 03/26/19 19:31: Magnesium 2.2, TSH 2.64 03/26/19 19:31: Hemoglobin A1c 4.7 03/26/19 19:35: WBC 15.2 H, RBC 4.45, Hgb 12.8, Hct 39.9, MCV 89.7, MCH 28.8, MCHC 32.1, RDW Std Deviation 41.9, RDW Coeff of Mariella 12.9, Plt Count 261, MPV 9.9, Immature Gran % (Auto) 0.700, Neut % (Auto) 77.8 H, Lymph % (Auto) 15.0 L, Dolores % (Auto) 5.6, Eos % (Auto) 0.6, Baso % (Auto) 0.3, Absolute Neuts (auto) 11.8 H, Absolute Lymphs (auto) 2.27, Nucleated RBC % 0 03/26/19 19:35: Serum , Qual NEGATIVE 03/26/19 19:35: Lamotrigine Pending 03/26/19 22:05: Urine Opiates Screen NEGATIVE, Urine Methadone Screen NEGATIVE, Ur Barbiturates Screen NEGATIVE, Ur Phencyclidine Scrn NEGATIVE, Ur Amphetamines Screen NEGATIVE, U Methamphetamin-MDMA NEGATIVE, U Benzodiazepines Scrn NEGATIVE, Urine Cocaine Screen NEGATIVE, U Cannabinoids Screen NEGATIVE, Ur Drug Screen Comment 03/27/19 05:35: Sodium 142, Potassium 4.1, Chloride 115 H, Carbon Dioxide 22.0, Anion Gap 5, BUN 8, Creatinine 0.57, Estim Creat Clear Calc 119.38, Est GFR (MDRD) Af Amer 161, Est GFR (MDRD) Non-Af 133, BUN/Creatinine Ratio 14.1, Glucose 86, Calcium 8.2 L 03/27/19 05:35: WBC 12.3 H, RBC 4.11 L, Hgb 11.8 L, Hct 36.1 L, MCV 87.8, MCH 28.7, MCHC 32.7, RDW Std Deviation 42.0, RDW Coeff of Mariella 13.0, Plt Count 210, MPV 9.6, Immature Gran % (Auto) 0.300, Neut % (Auto) 82.7 H, Lymph % (Auto) 10.5 L, Dolores % (Auto) 5.9, Eos % (Auto) 0.4, Baso % (Auto) 0.2, Absolute Neuts (auto) 10.1 H, Absolute Lymphs (auto) 1.29, Nucleated RBC % 0 Code Visit Addendum: Dr. Alvarez I personally examined the patient and reviewed the chart. I agree with the above. 28-year-old female with a history of epilepsy who presented with having 2 seizures in 1 day which is the first time that is ever happened. She is currently on Lamictal and Zonegran, she does not tolerate Keppra and Depakote did not work previously. She was started on Dilantin and neurology was consulted. She had a normal MRI however the EEG was read as showing epileptiform discharges and therefore she will need to follow-up with her neurologist as an outpatient for referral to a seizure specialist. I did express to her that if she is can to be on Dilantin she is not to get . I discussed with her the discharge planning and she felt that she would be able to go home since she could take Dilantin at home just as well as she could be taking it here, I expressed with her that if she has another seizure that is lasting longer than 5 minutes that she is to come back into the ER. Otherwise she is to follow-up with her primary neurologist as an outpatient. The risk and benefits of discharge were discussed with her and her family, they all expressed understanding. OBSV E&M: [id number] Observation care discharge
--- NOTE | 2019-03-27 16:02 | PHA.DC.MC ---
Pharmacy Service has performed discharge medication reconciliation and counseling for this patient. 1. PHENYTOIN 100MG PO TID The patient's discharge medication list was reviewed for discrepancies and discrepancies were resolved. Home Medications Lamotrigine [Lamictal] 200 mg PO BREAKFAST 12/23/17 Zonisamide 200 mg PO BREAKFAST 12/23/17 Lorazepam [Ativan] 1 mg PO DAILY PRN PRN 01/07/18 Pyridostigmine [place] [Mestinon] 60 mg PO TID 07/19/18 Lamotrigine [Lamictal] 400 mg PO QHS 03/26/19 Zonisamide [Zonegran] 300 mg PO QHS 03/26/19 Phenytoin Na [Dilantin] 100 mg PO TID #90 cap 03/27/19 The patient was counseled on the following discharge medications and changes in medications for homegoing were reviewed. The Reason for Use, instructions for use, and potential side effects were reviewed for all new medications. The patient's questions regarding all of their medications were answered. The patient was able to verbally demonstrate an understanding of their discharge medications.
[2019-03-29 12:33] LABS: Lamotrigine (Lamictal) Level 4.5 ug/mL (2.0-20.0)
== END 2019-03-27 16:20 | disposition home or self-care (01) ==
LOC: ED 19:06 → PCU 03-27 07:04
PROVIDERS: Admitting Provider Family Medicine; Emergency Provider Emergency Medicine; Family Provider Nurse Practitioner; PCP Nurse Practitioner; Referring Provider Family Medicine; Visit Provider Family Medicine
DX: G40.909 Epilepsy, unspecified, not intractable, without status epilepticus (principal); G70.00 Myasthenia gravis without (acute) exacerbation; E87.6 Hypokalemia; Z79.899 Other long term (current) drug therapy; R73.9 Hyperglycemia, unspecified
CPT/HCPCS: 36415; 70553; 80048; 80053; 80307; 82542; 83036; 83735; 84443; 84703; 85025; 95819; 96361; 96365; 96375; 99218; 99285; A9575; J7030; A4216; G0378

== ENCOUNTER → 2019-04-06 14:39 | Outpatient (CLI) | payer OTHER, SELFPAY ==
[2019-03-26 23:26] VITALS: BMI 22.1
[2019-04-19 16:51] LABS: ACHR AB Modulating 51 % (0-20); ACHR Recep AB, Blocking 24 % (0-25)
== END ==
PROVIDERS: Family Provider Nurse Practitioner; PCP Nurse Practitioner; Referring Provider Nurse Practitioner Family; Visit Provider Nurse Practitioner Family
DX: G70.00 Myasthenia gravis without (acute) exacerbation (principal)
CPT/HCPCS: 36415; 83519

== ENCOUNTER → 2019-05-29 13:08 | Outpatient (CLI) | payer OTHER, SELFPAY ==
[2019-05-29 14:42] LABS: Anion Gap 3 (5-15); BUN 11 mg/dL (7-18); BUN/Creat Ratio 14.6 RATIO (10-20); Calcium,Total 8.6 mg/dL (8.5-10.1); Chloride 109 mmol/L (98-107); Creatinine, Serum 0.75 mg/dL (0.55-1.02); EST Glomerular Filtration Rate 96 mL/min (>60); Est Glom Filt Rate - Afr Amer 116 mL/min (>60); Glucose 82 mg/dL (74-106); Potassium 3.4 mmol/L (3.5-5.1); Sodium Level 139 mmol/L (136-145)
[2019-06-02 13:13] LABS: Trileptal-Oxcarbazepine 2 ug/mL (10-35)
== END ==
PROVIDERS: PCP Nurse Practitioner; Referring Provider Psychiatry & Neurology Neurology; Visit Provider Psychiatry & Neurology Neurology
DX: G40.909 Epilepsy, unspecified, not intractable, without status epilepticus (principal)
CPT/HCPCS: 36415; 80048; 82542

== ENCOUNTER 2019-10-06 14:30 | Emergency (ER) | payer MEDICAID, SELFPAY ==
[2019-10-06 14:33] VITALS: BP 104/77; PULSE 111; PULSE 114; RESP 14; RESP 15; TEMP 36.9; O2SAT 94; O2SAT 95; BMI 24.5
--- NOTE | 2019-10-06 15:12 | ED.DCSUM_ITS ---
- ER Visit Summary Date of Service: 10/06/19 Chief Complaint: Seizure History of Present Illness: The patient is a 29 F who presents with seizure that occurred today. Mother witnessed the seizure and states it lasted approximately 3 minutes. Mother states that this was typical of her prior seizures but did not last quite as long. Mother describes as generalized tonic-clonic seizure. Patient does not think she bit her tongue. Patient denies any incontinence of stool or urine. Patient admits to a mild headache. Patient reports that she had an infusion for her myasthenia gravis yesterday. Patient states that usually the day after her infusions she is more tired than usual. Physical Examination: Vital signs are stable. Patient is afebrile. Patient is in no acute distress. Oral mucosa is pink and moist. There is some mild ecchymosis on the lateral aspect of the tongue bilaterally. There are no abrasions or lacerations. There is no bleeding. There are no abrasions of the oral mucosa. Neck is supple. Trachea is midline. There is no JVD noted. Heart was regular rate and rhythm. Lungs are clear and equal bilaterally. Abdomen is soft. Bowel sounds are normal. There is no tenderness. There is no rebound or guarding noted. Skin is warm dry. Cranial nerves II through XII are intact. There are no focal motor or sensory deficits noted. Extremities are intact. There is no calf tenderness or edema. Test Results: A Lamictal level was ordered. This is a send out test. Emergency Department Course and Treatment: Patient was given IV fluids and Tylenol for her headache. Patient was observed in the emergency department. Patient had no further seizure activity. Patient and her mother were advised that this is most likely a single breakthrough seizure. This may not be related to her infusion. Patient follows up with Dr. Gilmore for neurology. Patient was instructed to follow-up with him in 3 to 5 days. Patient was instructed to return if worse in any way. Patient and mother understood and were agreeable with the plan. All questions were answered. Disposition: Discharge home Impression: 1. Breakthrough seizure This note was generated with [employer] software. It may contain incorrect words, spelling, and punctuation that were not noted in review of the chart prior to signing ED Disposition - Plan for ED Patient: Disposition: Home or Assisted Living Diagnosis: Breakthrough seizure Instructions: ED Seizure Recurrent Adult Referrals: Macy Akins NP-C [Primary Care Provider] - 3-5 Days Gerald Gilmore MD [STAFF PHYSICIAN] - 3-5 Days
[2019-10-06] MEDS: Acetaminophen 500 MG Tablet 1000 MG PO (16:45)
[2019-10-06 16:46] VITALS: BP 108/78; PULSE 108; PULSE 111; RESP 16; O2SAT 98; O2SAT 99
[2019-10-11 05:30] LABS: Lamotrigine (Lamictal) Level 2.2 ug/mL (2.0-20.0)
== END 2019-10-06 16:54 | disposition home or self-care (01) ==
LOC: ED 15:50
PROVIDERS: Emergency Provider Emergency Medicine; PCP Nurse Practitioner
DX: R56.9 Unspecified convulsions (principal); G70.00 Myasthenia gravis without (acute) exacerbation; Z79.899 Other long term (current) drug therapy
CPT/HCPCS: 82542; 99284; A4216

== ENCOUNTER 2019-10-06 19:30 | Emergency (ER) | payer MEDICAID, SELFPAY ==
[2019-10-06 14:33] VITALS: BMI 24.5
[2019-10-06 19:31] VITALS: BP 116/81; PULSE 120; RESP 14; TEMP 36.9; O2SAT 100; BMI 24.7
--- NOTE | 2019-10-06 20:08 | CT_ITS ---
STUDY: CT BRAIN WITHOUT CONTRAST REASON FOR EXAM: Female, 29 years old. SEIZURE, HX SEIZURES IN PAST RADIATION DOSAGE (If Supplied By Facility): CTDIvol = ( 44.99 ) mGy, DLP = ( 796.11 ) mGycm TECHNIQUE: Transaxial CT imaging of the brain was performed without administration of intravenous contrast material. Individualized dose optimization techniques were used for this CT. COMPARISON: Previous study of 01/07/2018 FINDINGS: Normal soft tissue structures. Normal calvarium. Normal size ventricles and extra-axial spaces for the patient''s age. Normal white matter tracts of the cerebral hemispheres. Normal basal ganglia and thalami. Normal brainstem. Normal cerebellum. There is no intracranial hemorrhage. There are no findings of an acute ischemic infarction. Normal visualized paranasal sinuses. CT/Brain/Head without Contrast IMPRESSION: Normal unenhanced CT scan of the brain. Electronically Signed: Alfa Wright MD at 20:56 EDT , Service support ,
[2019-10-06 20:15] LABS: Absolute Lymphocyte Count 1.25 X10^3/uL (0.83-4.51); Absolute Neutrophil Count 13.4 X10^3/uL (2.0-7.7); Basophil# 0.04 X10^3/uL; Basophil% 0.3 % (0-1); Eosinophil# 0.01 X10^3/uL; Eosinophils% 0.1 % (0-5); Hematocrit 38.2 % (37-47); Hemoglobin 12.3 g/dL (12.0-15.0); Lymphocyte # 1.25 X10^3/ul (4.0); Lymphocyte % 7.9 % (19-41); Mean Corp Hgb Conc 32.2 g/dL (32-36); Mean Corpuscular Hgb 28.1 pg (27.0-32.0); Mean Corpuscular Volume 87.4 fL (81-99); Mean Platelet Vol. 9.8 fl (6.2-12.0); Monocyte# 1.11 X10^3/uL; NRBC Flagged by Analyzer 0 % (0-5); Neutrophil # 13.38 X10^3/uL (2.7-7.7); Neutrophil % 84.3 % (47-70); Platelet Count 239 K/mm3 (150-450); RBC Distribution Width CV 12.5 % (11.6-14.6); RBC Distribution Width SD 39.5 fl (35.1-43.9); Red Blood Count 4.37 M/mm3 (4.2-5.4); White Blood Count 15.9 K/mm3 (4.4-11.0)
[2019-10-06] MEDS: 0.9% Normal Saline 1,000 ML 1000 ML IV (20:20)
[2019-10-06 20:26] LABS: Internal QC Validated? YES +Cl - CLEAR BKGD; Pregnancy, Serum, hCG Quali. NEGATIVE Negative
[2019-10-06 20:35] LABS: ALB/GLOB Ratio 1.2 RATIO (0.9-2.4); AST(SGOT) 13 U/L (15-37); Alanine Aminotransfer ALT/SGPT 16 U/L (13-56); Albumin, Serum 3.9 g/dL (3.2-5.0); Alkaline Phosphatase 84 U/L (45-117); Anion Gap 9 (5-15); BUN 12 mg/dL (7-18); Calcium,Total 8.9 mg/dL (8.5-10.1); Chloride 109 mmol/L (98-107); Creatinine, Serum 0.86 mg/dL (0.55-1.02); EST Glomerular Filtration Rate 82 mL/min (>60); Est Glom Filt Rate - Afr Amer 99 mL/min (>60); Estimated Creatinine Clearance 78.41 ml/min; Globulin 3.3 g/dL (2.2-4.2); Glucose 120 mg/dL (74-106); Potassium 3.2 mmol/L (3.5-5.1); Protein, Total 7.2 g/dL (6.4-8.2); Sodium Level 140 mmol/L (136-145)
--- NOTE | 2019-10-06 20:56 | ED.DCSUM_ITS ---
- ER Visit Summary Date of Service: 10/06/19 Chief Complaint: Seizure History of Present Illness: The patient is a 29 F who presents with a seizure that occurred today. Patient was seen here earlier today for breakthrough seizure. Mother witnessed the seizure today. Mother states it lasted approximately 2 minutes and was generalized tonic-clonic seizure. Patient takes Lamictal for her seizures and states she has not missed any doses. Patient had an infusion yesterday for her myasthenia. Patient states she normally feels tired the day after her infusion. Patient was feeling more tired than usual today. Mother states that the patient was having more confusion prior to the seizure which she normally does not have. Mother states that earlier today the patient told her that she had a dream this morning where she thought she was having a seizure and the mother is unsure if this truly was a seizure in her sleep. Patient still complains of a headache. Physical Examination: Vital signs are stable. Patient is afebrile. Patient is in no acute distress. Oral mucosa is pink and moist. There is still some mild ecchymosis on the lateral aspect of her tongue bilaterally. There are no lacerations noted. Neck is supple. Trachea is midline. There is no JVD noted. Heart was regular rate and rhythm. Lungs are clear and equal bilaterally. Abdomen is soft. Bowel sounds are normal. There is no tenderness. There is no rebound or guarding noted. Skin is warm dry. Cranial nerves II through XII are intact. There are no focal motor or sensory deficits noted. Extremities are intact. There is no calf tenderness or edema. Test Results: CBC showed leukocytosis of 15.9. Metabolic profile was essentially within normal limits except for mild hypokalemia of of 3.2. Serum hCG was negative. CT scan of the brain was obtained. There is no acute intracranial abnormality. This was interpreted by the radiologist and reviewed by myself. Emergency Department Course and Treatment: Patient was being monitored here in the emergency department. Patient had a another generalized tonic-clonic seizure. This stopped after approximately 1 minute. Patient was postictal. Patient was given a dose of Depacon. Case was discussed with the hospitalist. She recommended transferring the patient to a tertiary care facility for further evaluation. Family requested to go to hospital where Dr. Gilmore can see her. The patient was transferred to [facility]. Patient was accepted to the service of Dr. Kunz. Mother and patient understood and were agreeable with the plan. All questions were answered. Disposition: Transfer to [facility] Impression: 1. Breakthrough seizures 2. History of myasthenia gravis This note was generated with [employer] dictation software. It may contain incorrect words, spelling, and punctuation that were not noted in review of the chart prior to signing ED Disposition - Plan for ED Patient: Disposition: [facility] Diagnosis: Breakthrough seizure, Myasthenia Referrals: Macy Akins NP-C [Primary Care Provider] -
--- NOTE | 2019-10-06 21:10 | ED.RN ---
at 2103 pt's mother called staff to pt's room, pt was having full body seizure lasting 45 seconds. pt was suctioned orally with yankauer, pulse ox decreased to upper 30's, oxygen 5L applied and oxygen pulse ox immediately increased to 100%. pt currently on o22Lnc pulse ox 98%, mother at bedside at this time. Dr. Jhon Priest discussed admission with mother.
--- NOTE | 2019-10-06 21:26 | HP.PCM_ITS ---
History of Present Illness The patient is a 29 year old F [] Britt Hx MG, infusion of IVIG 2 minutes seizure, typical of seizures, second one confusion prior to seizure x 30 minutes Past Medical History Past Medical History (Chronic Problems): Chronic Problems Myasthenia (Chronic) Epilepsy (Chronic) Allergies levetiracetam [From Keppra] Allergy (Verified 10/06/19 19:34) Other Penicillins Allergy (Verified 10/06/19 19:34) Rash phenytoin [From Dilantin] Allergy (Verified 10/06/19 19:34) PT UNSURE OF REACTION Home Medications: Ambulatory Orders Medication Instructions Recorded Lamotrigine [Lamictal] 200 mg PO BREAKFAST 12/23/17 Zonisamide 200 mg PO BREAKFAST 12/23/17 Lorazepam [Ativan] 1 mg PO DAILY PRN PRN 01/07/18 Pyridostigmine [place] [Mestinon] 60 mg PO TID 07/19/18 Lamotrigine [Lamictal] 200 mg PO QHS 03/26/19 Zonisamide [Zonegran] 300 mg PO QHS 03/26/19 Oxcarbazepine 150 mg PO BID 10/06/19 Ropinirole HCl 0.5 mg PO QHS 10/06/19 Surgical History: - - Thymectomy, appendectomy. Psychiatric History: No pertinent psych hx MANAGER TRANSFUSION History: No pertinent MANAGER TRANSFUSION history Smoking Status: Never smoker - *Family History Paternal History Items: - - Patient and family present denies any market maternal or paternal family history including heart disease, diabetes, cancer, seizures. Maternal History Items: - - Patient and family present denies any market maternal or paternal family history including heart disease, diabetes, cancer, seizures. - Physical Exam Vitals/I&O's: Vital Signs Temp Pulse Resp BP Pulse Ox 98.5 F 120 H 14 116/81 H 100 10/06/19 19:31 10/06/19 19:31 10/06/19 19:31 10/06/19 19:31 10/06/19 19:31 Oxygen Delivery Method Room Air Weight: 139 lb 8.842 oz Body Mass Index (BMI) 24.7 Finger Stick Blood Glucose 99 Laboratory Results 10/06/19 19:41: WBC 15.9 H, RBC 4.37, Hgb 12.3, Hct 38.2, MCV 87.4, MCH 28.1, MCHC 32.2, RDW Std Deviation 39.5, RDW Coeff of Mariella 12.5, Plt Count 239, MPV 9.8, Immature Gran % (Auto) 0.400, Neut % (Auto) 84.3 H, Lymph % (Auto) 7.9 L, [place] % (Auto) 7.0, Eos % (Auto) 0.1, Baso % (Auto) 0.3, Absolute Neuts (auto) 13.4 H, Absolute Lymphs (auto) 1.25, Nucleated RBC % 0 10/06/19 19:41: Sodium 140, Potassium 3.2 L, Chloride 109 H, Carbon Dioxide 22.0, Anion Gap 9, BUN 12, Creatinine 0.86, Estim Creat Clear Calc 78.41, Est GFR (MDRD) Af Amer 99, Est GFR (MDRD) Non-Af 82, BUN/Creatinine Ratio 14.0, Glucose 120 H, Calcium 8.9, Total Bilirubin 0.40, AST 13 L, ALT 16, Alkaline Phosphatase 84, Total Protein 7.2, Albumin 3.9, Globulin 3.3, Albumin/Globulin Ratio 1.2 10/06/19 19:41: Serum , Qual NEGATIVE Assessment/Plan All Active Problems Slurred speech (Acute) Arm weakness (Acute) Breakthrough seizure (Acute) Hypokalemia (Acute)
[2019-10-06 21:49] VITALS: BP 108/73; PULSE 115; RESP 16; O2SAT 100
[2019-10-06 23:11] VITALS: BP 114/56; PULSE 106; RESP 16; O2SAT 100
[2019-10-06] MEDS: Morphine 4 MG/ML Syringe IV (23:17)
[2019-10-06 23:45] VITALS: BP 90/65; PULSE 106; RESP 16; TEMP 36.9; O2SAT 100
[2019-10-07 00:04] VITALS: BP 99/62; PULSE 105; RESP 16; TEMP 36.9; O2SAT 100
[2019-10-07 00:32] VITALS: BP 116/74; PULSE 79; RESP 16; TEMP 36.9; O2SAT 100
== END 2019-10-07 00:50 | disposition short-term general hospital (02) ==
PROVIDERS: Emergency Provider Emergency Medicine; PCP Nurse Practitioner
DX: R56.9 Unspecified convulsions (principal); G70.00 Myasthenia gravis without (acute) exacerbation; Z79.899 Other long term (current) drug therapy
CPT/HCPCS: 70450; 80053; 82542; 84703; 85025; 96361; 96365; 96366; 96375; 99284; 99285; J7030; J7040; A4216

== ENCOUNTER 2019-10-10 10:57 | Observation (INO) | payer MEDICAID, SELFPAY ==
[2019-10-10] VITALS (8 sets, daily range): BP systolic 92–112; BP diastolic 46–77; PULSE 74–100; RESP 14–17; TEMP 36.2–37.1; O2SAT 98–100; BMI 21.9; BMI 23.5
--- NOTE | 2019-10-10 11:16 | ED.VISSUMM ---
- ER Visit Summary Date of Service: 10/10/19 Chief Complaint: [Nausea vomiting and dizziness] History of Present Illness: The patient is a 29 F [presents the emergency department with complaint of not feeling well for last several days. Patient states that she was recently admitted to this hospital 5 days ago for seizure and then was transferred over to [facility]. Patient had her Trileptal increased and was told to take it in evening and in the morning as well. Patient states that she feels like she is drunk and has had some double vision. Patient started having multiple episodes of emesis today. Denies any recent illness otherwise. She also complains of a headache. She called her neurologist Dr. Gerald Gilmore who advised them to come in and be evaluated. She denies any abdominal pain. She denies urinary symptoms. Patient has history of myasthenia gravis as well as seizures.] Physical Examination: [HEENT-PERRLA, EOMI. Cranial nerves II through XII grossly intact. TMs clear. Mucous membranes moist. No adenopathy. Cardiovascular-regular rate and rhythm without murmur or ectopy Lungs-clear to auscultation, chest wall stable without crepitus or subcu emphysema Abdomen-normoactive bowel sounds, soft, nontender, no rebound or rigidity, no peritoneal signs. Neuro cypo-zaeakl-xc-nose and heel peters testing within normal limits, negative Romberg, negative for drift, fundi benign Extremities-intact ?4, normal range of motion, normal pulses, atraumatic] Test Results: [CBC with differential unremarkable. Chemistries unremarkable. LFTs were normal. hCG was negative.] Emergency Department Course and Treatment: [Patient had an IV line established. She was given normal saline. Patient was treated with Narcan as well as Antivert and Valium. Treatment Plan: [Patient will be discussed with hospitalist to evaluate for admission. Patient's Trileptal levels will not return today and it is possible she may be toxic from that. Patient believes the extra Trileptal is causing her symptoms.] Disposition: [Admit] Impression: [Vomiting Vertigo] This note was generated with [employer] dictation software. It may contain incorrect words, spelling, and punctuation that were not noted in review of the chart prior to signing ED Disposition - Plan for ED Patient: Referrals: Macy Akins, IN SERVICE COORDINATOR-C [Primary Care Provider] -
[2019-10-10] MEDS: 0.9% Normal Saline 1,000 ML 1000 ML IV (11:42)
[2019-10-10 12:14] LABS: ALB/GLOB Ratio 1.1 RATIO (0.9-2.4); AST(SGOT) 11 U/L (15-37); Alanine Aminotransfer ALT/SGPT 15 U/L (13-56); Albumin, Serum 3.9 g/dL (3.2-5.0); Alkaline Phosphatase 72 U/L (45-117); Anion Gap 8 (5-15); BUN 8 mg/dL (7-18); BUN/Creat Ratio 10.6 RATIO (10-20); Calcium,Total 9.1 mg/dL (8.5-10.1); Chloride 109 mmol/L (98-107); Creatinine, Serum 0.76 mg/dL (0.55-1.02); EST Glomerular Filtration Rate 95 mL/min (>60); Est Glom Filt Rate - Afr Amer 115 mL/min (>60); Estimated Creatinine Clearance 84.83 ml/min; Globulin 3.5 g/dL (2.2-4.2); Glucose 98 mg/dL (74-106); Potassium 3.7 mmol/L (3.5-5.1); Protein, Total 7.4 g/dL (6.4-8.2); Sodium Level 140 mmol/L (136-145)
[2019-10-10] MEDS: proMETHazine 25 MG/ML Syringe 12.5 MG IV (12:24)
--- NOTE | 2019-10-10 12:34 | ED.RN ---
almaraz 12/[address] notified. order for phenergan.
[2019-10-10 12:36] LABS: Internal QC Validated? YES +Cl - CLEAR BKGD; Pregnancy, Serum, hCG Quali. NEGATIVE Negative
[2019-10-10 12:40] LABS: Absolute Lymphocyte Count 1.06 X10^3/uL (0.83-4.51); Absolute Neutrophil Count 5.4 X10^3/uL (2.0-7.7); Basophil# 0.03 X10^3/uL; Basophil% 0.4 % (0-1); Eosinophil# 0.05 X10^3/uL; Eosinophils% 0.7 % (0-5); Hematocrit 39.2 % (37-47); Hemoglobin 12.5 g/dL (12.0-15.0); Lymphocyte # 1.06 X10^3/ul (4.0); Lymphocyte % 15.6 % (19-41); Mean Corp Hgb Conc 31.9 g/dL (32-36); Mean Corpuscular Hgb 28.3 pg (27.0-32.0); Mean Corpuscular Volume 88.9 fL (81-99); Monocyte# 0.26 X10^3/uL; Monocyte% 3.8 % (0-10); NRBC Flagged by Analyzer 0 % (0-5); Neutrophil # 5.39 X10^3/uL (2.7-7.7); Neutrophil % 79.2 % (47-70); Platelet Count 274 K/mm3 (150-450); RBC Distribution Width CV 12.4 % (11.6-14.6); RBC Distribution Width SD 40.3 fl (35.1-43.9); Red Blood Count 4.41 M/mm3 (4.2-5.4); White Blood Count 6.8 K/mm3 (4.4-11.0)
[2019-10-10 13:51] LABS: Bacteria 0 SEEN /hpf (None Seen); Mucous, Urine 0 SEEN /hpf (<or=2+); Red Blood Cells-Urine 0 SEEN /hpf (0-5); White Blood Cells 0 SEEN /hpf (0-5)
[2019-10-10] MEDS: Meclizine HCl 25 MG Tablet PO (13:56)
[2019-10-10] MEDS: diazePAM 10 MG/2 ML Syringe 4 MG IV (13:56)
[2019-10-10 14:08] LABS: Color, Urine Straw (Yellow); Glucose, Dipstick Normal (Normal); Ketone-Dipstick Negative (Negative); Leukocyte Esterase-Dipstick Negative /ul (Negative); Nitrite-Dipstick Negative (Negative); Occult Blood-Urine Negative /ul (Negative); Protein-Dipstick Negative (Negative); Urine Bilirubin Dipstick Negative (Negative); Urine Clarity Sl. Cloudy (Clear); Urine Urobilinogen Normal (Normal)
[2019-10-10 14:18] LABS: Squamous Epithelial Cells - UA 0-5 SEEN /hpf (5-10)
--- NOTE | 2019-10-10 14:58 | HP.PCM_ITS ---
History of Present Illness Date of Admission: 10/10/19 Chief Complaint: nausea, vomiting, blurred and double vision The patient is a 29 year old F with a PMH of seizure disorder and myasthenia gravis. She was admitted via the ED on 10/10/2019 with a complaint of nausea, vomiting, blurred and double vision as well as headache since the morning of day of admission. Patient was seen in the ED of [facility] about 4 days ago for breakthrough seizure was thought to be in status epilepticus. She was transferred to [facility]. There, her Trileptal was increased from 150 mg nightly to 150 mg twice daily and she was discharged home. She was discharged home about 2 days ago and she has been compliant with her increase Trileptal dose. However symptoms started yesterday. She denied any fever, chills, cough, chest pain, shortness of breath, or abdominal pain. She denied any weakness in any extremity. She denied any tingling over the base she did admit to about headache. Review of signs otherwise negative. She called her neurologist office before coming in and she was told to come to the ED. In the ED, vitals were stable with temperature of 97.8 Fahrenheit with blood pressure of 105/77, pulse rate of 100 and respiratory of 16. She was saturating at 100% on room air. Chemistry was essentially unremarkable and CBC was also unremarkable. She has been admitted to be managed for nausea, vomiting and blurred and double vision likely due to side effects of Trileptal. [] Past Medical History Past Medical History (Chronic Problems): Chronic Problems Myasthenia (Chronic) Epilepsy (Chronic) Allergies levetiracetam [From Keppra] Allergy (Verified 10/10/19 10:57) Other Penicillins Allergy (Verified 10/10/19 10:57) Rash phenytoin [From Dilantin] Allergy (Verified 10/10/19 10:57) PT UNSURE OF REACTION Home Medications: Ambulatory Orders Medication Instructions Recorded Lamotrigine [Lamictal] 200 mg PO BREAKFAST 12/23/17 Zonisamide 200 mg PO BREAKFAST 12/23/17 Lorazepam [Ativan] 1 mg PO DAILY PRN PRN 01/07/18 Pyridostigmine [place] [Mestinon] 60 mg PO TID 07/19/18 Lamotrigine [Lamictal] 200 mg PO QHS 03/26/19 Zonisamide [Zonegran] 300 mg PO QHS 03/26/19 Oxcarbazepine 150 mg PO BID 10/06/19 Ropinirole HCl 0.5 mg PO QHS 10/06/19 Surgical History: - - Thymectomy, appendectomy. 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 Maternal History Items: - - Patient and family present denies any market maternal or paternal family history including heart disease, diabetes, cancer, seizures. Review of Systems Constitutional: Reports: Malaise, Weakness, Fatigue. Denies: Anorexia, Chills, Fever Eyes: Reports: Blurred vision, Double vision, Vision Change. Denies: Eyelid Inflammation, Pain, Redness Cardiovascular: Denies: Chest Pain, Palpitations Respiratory: Denies: Cough, Shortness of Breath, Shortness of breath at rest, Shortness of breath upon exertion, Sputum production Gastrointestinal: Reports: Nausea, Vomiting. Denies: Abdominal Pain, Diarrhea, Dyspepsia Genitourinary: Denies: Dysuria Musculoskeletal: Denies: Joint Pain, Joint Tenderness Skin: Denies: Rash, Wounds Neurological: Reports: Headaches. Denies: Focal weakness, Numbness, Tingling Psychiatric: Denies: Anxiety, Depression, Homicidal Ideations, Suicidal Ideations Hematologic/ Lymphatic: Denies: Easy Bruising, Easy Bleeding VTE Information - Inpt Only VTE Present on Admission: No VTE Pharm Prophylaxis ordered?: Yes - Physical Exam Vitals/I&O's: Vital Signs Temp Pulse Resp BP Pulse Ox 97.1 F L 89 15 111/62 100 10/10/19 10:57 10/10/19 13:46 10/10/19 13:46 10/10/19 13:46 10/10/19 13:46 Oxygen Delivery Method Room Air Weight: 120 lb Body Mass Index (BMI) 21.9 Finger Stick Blood Glucose 99 General: Alert, Oriented x3, Cooperative, Lethargic HEENT: Atraumatic, PERRLA, EOMI, Normocephalic Oral: Dry Mucosa Neck: Supple, No JVD, Negative Carotid Bruits Lungs: Clear to auscultation, Normal air movement, No rhonchi, No wheeze, No rales Cardiovascular: Regular rate, Regular Rhythm, Normal S1, Normal S2, No murmurs Abdomen: Bowel Sounds Present, Soft, Non Tender, Non-Distended, No Hepato- splenomegaly Extremities: No clubbing, No cyanosis, No edema, Capillary Refill Less than 3 Seconds Skin: No rashes, No breakdown Musculoskeletal: No Tenderness to Palpation of Joints or Extremities Lymphatic: No Cervical, Supraclavicular, or Inguinal Adenopathy Neurological: Cranial nerves II-XII grossly intact, Neuro grossly intact, Motor Exam 5/5 strength throughout, - - has horizontal and vertical nystagmyus Psych/Mental Status: Normal Affect, Appropriate, Alert and oriented to time, place, person, mood and affect Laboratory Results 10/10/19 11:40: Oxcarbazepine Pending 10/10/19 11:40: Sodium 140, Potassium 3.7, Chloride 109 H, Carbon Dioxide 23.0, Anion Gap 8, BUN 8, Creatinine 0.76, Estim Creat Clear Calc 84.83, Est GFR (MDRD) Af Amer 115, Est GFR (MDRD) Non-Af 95, BUN/Creatinine Ratio 10.6, Glucose 98, Calcium 9.1, Total Bilirubin 0.20, AST 11 L, ALT 15, Alkaline Phosphatase 72, Total Protein 7.4, Albumin 3.9, Globulin 3.5, Albumin/Globulin Ratio 1.1 10/10/19 11:40: Serum , Qual NEGATIVE 10/10/19 11:40: WBC 6.8, RBC 4.41, Hgb 12.5, Hct 39.2, MCV 88.9, MCH 28.3, MCHC 31.9 L, RDW Std Deviation 40.3, RDW Coeff of Mariella 12.4, Plt Count 274, MPV 10.0, Immature Gran % (Auto) 0.300, Neut % (Auto) 79.2 H, Lymph % (Auto) 15.6 L, [place] % (Auto) 3.8, Eos % (Auto) 0.7, Baso % (Auto) 0.4, Absolute Neuts (auto) 5.4, Absolute Lymphs (auto) 1.06, Nucleated RBC % 0 10/10/19 13:40: Urine Color Straw, Urine Clarity Sl. Cloudy, Urine pH 8.0, Ur Specific [place] 1.010, Urine Protein Negative, Urine Glucose (UA) Normal, Urine Ketones Negative, Urine Occult Blood Negative, Urine Nitrite Negative, Urine Bilirubin Negative, Urine Urobilinogen Normal, Ur Leukocyte Esterase Negative, Urine RBC 0 SEEN, Urine WBC 0 SEEN, Ur Squamous Epith Cells 0-5 SEEN, Urine Bacteria 0 SEEN, Urine Mucus 0 SEEN Assessment/Plan All Active Problems Slurred speech (Acute) Arm weakness (Acute) Breakthrough seizure (Acute) Hypokalemia (Acute) 29 y/o admitted with a complaint of nausea, vomiting, blurred and double vision, after her trileptal dose was increased 1. Nausea, vomiting, blurred and double vision due to Trileptal side effects * patient's symptoms of visual disturbance, nystagmus, nausea and vomiting as well as headache are all known side effects of trilepta, and occured shortly * her symptoms can also be due to migraines, as she has a history of migraines; however, since it started so acutely after the increase in her trileptal dose rom 150mg qhs to 150mg bid, that I think it is reasonable to consider trileptal toxicity first. * trileptal level ordered; is a send out test and will take a while to get results * admit to PCU with telemetry * seizure precautions * neurology consult as Trileptal dose will likely need to adjusted downwards. 2. History of seizure disorder * Trileptal on hold. Continue Lamictal. and zonisamide. * discussed with neurology: dc morning trileptal and continue trileptal 150mg qhs * increase lamictal evening dose to 250mg qhs and continue lamictal 200mg in the morning, per neuro rec's; continue zonisamide at current dose 3. History of myasthenia gravis: On pyridostigmine. DVT prophylaxis: SCDs * OBSV E&M: 82512 Initial observation care L3
--- NOTE | 2019-10-10 15:17 | NURSING ---
PCU SEIZURE DISORDER, N, V JUNG
--- NOTE | 2019-10-10 15:43 | NURSING ---
[address] JOSE ARMANDO POON. [phone] JOSE ARMANDO POON AGAIN
[2019-10-10] MEDS: 0.9% Normal Saline 1,000 ML 150 ML IV ×2 (17:12→23:25)
[2019-10-10] MEDS: Ondansetron 4 MG/2 ML Vial IV (17:48)
[2019-10-10] MEDS: Acetaminophen 325 MG Tablet 650 MG PO (18:21)
[2019-10-10] MEDS: lamoTRIgine 100 MG Tablet 250 MG PO (21:07)
[2019-10-10] MEDS: Pyridostigmine Bromide 60 MG Tablet PO (21:10)
[2019-10-10] MEDS: Pramipexole Di-HCl 0.25 MG Tablet PO (21:16)
[2019-10-10] MEDS: Zonisamide 50 MG Capsule 300 MG PO (21:17)
[2019-10-10] MEDS: OXcarbazepine 150 MG Tablet PO (23:23)
[2019-10-11] VITALS (8 sets, daily range): BP systolic 90–104; BP diastolic 46–53; PULSE 68–124; RESP 14–18; TEMP 36.9–37.3; O2SAT 98–100
[2019-10-11] MEDS: Acetaminophen 325 MG Tablet 650 MG PO ×2 (03:20→14:25)
[2019-10-11 05:22] LABS: Absolute Lymphocyte Count 2.09 X10^3/uL (0.83-4.51); Absolute Neutrophil Count 3.1 X10^3/uL (2.0-7.7); Basophil# 0.04 X10^3/uL; Basophil% 0.7 % (0-1); Eosinophil# 0.11 X10^3/uL; Eosinophils% 1.9 % (0-5); Hematocrit 35.2 % (37-47); Hemoglobin 11.2 g/dL (12.0-15.0); Lymphocyte # 2.09 X10^3/ul (4.0); Lymphocyte % 36.2 % (19-41); Mean Corp Hgb Conc 31.8 g/dL (32-36); Mean Corpuscular Hgb 27.9 pg (27.0-32.0); Mean Corpuscular Volume 87.8 fL (81-99); Mean Platelet Vol. 9.5 fl (6.2-12.0); Monocyte# 0.47 X10^3/uL; Monocyte% 8.1 % (0-10); NRBC Flagged by Analyzer 0 % (0-5); Neutrophil # 3.05 X10^3/uL (2.7-7.7); Neutrophil % 52.9 % (47-70); Platelet Count 228 K/mm3 (150-450); RBC Distribution Width CV 12.6 % (11.6-14.6); RBC Distribution Width SD 40.1 fl (35.1-43.9); Red Blood Count 4.01 M/mm3 (4.2-5.4); White Blood Count 5.8 K/mm3 (4.4-11.0)
[2019-10-11] MEDS: 0.9% Normal Saline 1,000 ML 150 ML IV (06:11)
[2019-10-11] MEDS: Pyridostigmine Bromide 60 MG Tablet PO (06:53)
[2019-10-11 08:07] LABS: Anion Gap 8 (5-15); BUN 7 mg/dL (7-18); BUN/Creat Ratio 10.5 RATIO (10-20); Calcium,Total 8.4 mg/dL (8.5-10.1); Chloride 115 mmol/L (98-107); Creatinine, Serum 0.67 mg/dL (0.55-1.02); EST Glomerular Filtration Rate 110 mL/min (>60); Est Glom Filt Rate - Afr Amer 133 mL/min (>60); Estimated Creatinine Clearance 96.22 ml/min; Glucose 84 mg/dL (74-106); Potassium 3.7 mmol/L (3.5-5.1); Sodium Level 144 mmol/L (136-145)
[2019-10-11] MEDS: Ketorolac 15 MG/ML Vial IV (08:59)
[2019-10-11] MEDS: Zonisamide 50 MG Capsule 200 MG PO (09:00)
[2019-10-11] MEDS: lamoTRIgine 100 MG Tablet 200 MG PO (10:04)
[2019-10-11] MEDS: Ibuprofen 600 MG Tablet PO (12:16)
--- NOTE | 2019-10-11 13:44 | PCM.DC ---
- Discharge Diagnoses Reason(s) for Visit for Discharge Instructions: nausea, vomiting, blurred vision You will use the following diet at home:: Regular Your food should be the consistency of: Regular Your liquids should be the consistency of: Regular/Thin Discharge Activity: Return to Normal Activity Allergies/Adverse Reactions: Allergies levetiracetam [From Keppra] Allergy (Verified 10/10/19 16:40) Other Hallucinations Penicillins Allergy (Verified 10/10/19 10:57) Rash phenytoin [From Dilantin] Allergy (Verified 10/10/19 16:40) PT UNSURE OF REACTION hallucinations Medications to take at Discharge Lamotrigine [Lamictal] 200 mg PO BREAKFAST 12/23/17 Zonisamide 200 mg PO BREAKFAST 12/23/17 Lorazepam [Ativan] 1 mg PO DAILY PRN PRN 01/07/18 Pyridostigmine [place] [Mestinon] 60 mg PO TID 07/19/18 Lamotrigine [Lamictal] 200 mg PO QHS 03/26/19 Zonisamide [Zonegran] 300 mg PO QHS 03/26/19 Oxcarbazepine 150 mg PO BID 10/06/19 Ropinirole HCl 0.5 mg PO QHS 10/06/19 Oxcarbazepine [Trileptal] 150 mg PO QHS 30 Days #30 tab 10/11/19 The following prescriptions were given: Oxcarbazepine [Trileptal] 150 mg PO QHS 30 Days #30 tab Transmission Status: Received by [facility] Primary Care Physician: Macy Akins, TECHNICAL EDUCATION TEACHER-C [Primary Care Provider] - Please follow up with your Primary Care Physician in: within 1-2 weeks Test Results: Test results from this visit will be discussed in further detail at your follow-up appointment, if applicable. Proposed Discharge Date: 10/11/19
--- NOTE | 2019-10-11 13:54 | DS.PCM_ITS ---
Discharge Date and Diagnosis Date of Admission: 10/10/19 Date of Discharge: 10/11/19 - Primary Discharge Diagnosis Acute Problems: Oxcarbazepine side-effects - Secondary Discharge Diagnosis Chronic Problems: Chronic Problems Myasthenia (Chronic) Epilepsy (Chronic) Hospital Course and Treatment Teleneurology Operations: None Procedures: None Summary of Care Provided: The patient is a 29 year old F with past medical history of myasthenia gravis, seizure disorder who comes in with complaints of nausea, vomiting, blurred vi bianca and double vision as well as headache. Patient was recently seen in the ED 4 days ago for breakthrough seizures and was found to be in status epilepticus. She was transferred to [facility]. Over the course of her stay, her Trileptal was increased from 150 nightly to 150 twice daily and discharged home. Vitals were stable in the ED. Tele-neurology was consulted and recommended that her Trileptal be decreased to 150 mg nightly. Her Lamictal was increased to 200 mg p.o. every morning and 250 mg p.o. nightly. She was continued on her zonisamide and Mestinon. Patient will follow-up with her neurologist within 1 to 2 weeks. Subjective: On the day of discharge, patient was seen and examined. Complains of mild headache that improved with Toradol. Her blurred vision and nausea has improved. - Physical Exam Vitals/I&O's: Vital Signs Temp Pulse Resp BP Pulse Ox 98.4 F 124 H 18 98/53 L 100 10/11/19 08:57 10/11/19 11:03 10/11/19 08:57 10/11/19 08:57 10/11/19 08:57 Oxygen Delivery Method Room Air Weight: 58.4 kg Body Mass Index (BMI) 23.5 Finger Stick Blood Glucose 99 Intake and Output for Last 24 Hours 10/09/19 10/10/19 10/11/19 23:59 23:59 23:59 Intake Total 2307.5 / 2307.5 2300 / 2300 Balance 2307.5 / 2307.5 2300 / 2300 General: Alert, Oriented x3, Cooperative, No apparent distress HEENT: Atraumatic, PERRLA, EOMI, Normocephalic Oral: Moist Mucosa Neck: Supple Lungs: Clear to auscultation, Normal air movement Cardiovascular: Regular rate, Regular Rhythm, Normal S1, Normal S2, No murmurs Abdomen: Bowel Sounds Present, Soft, Non Tender, Non-Distended Extremities: No edema Skin: No rashes Musculoskeletal: No Tenderness to Palpation of Joints or Extremities Lymphatic: No Cervical, Supraclavicular, or Inguinal Adenopathy Neurological: Cranial nerves II-XII grossly intact, Neuro grossly intact Psych/Mental Status: Normal Affect, Appropriate Laboratory Results 10/10/19 13:40: Urine Color Straw, Urine Clarity Sl. Cloudy, Urine pH 8.0, Ur Specific Galva 1.010, Urine Protein Negative, Urine Glucose (UA) Normal, Urine Ketones Negative, Urine Occult Blood Negative, Urine Nitrite Negative, Urine Bilirubin Negative, Urine Urobilinogen Normal, Ur Leukocyte Esterase Negative, Urine RBC 0 SEEN, Urine WBC 0 SEEN, Ur Squamous Epith Cells 0-5 SEEN, Urine Bacteria 0 SEEN, Urine Mucus 0 SEEN 10/11/19 04:52: WBC 5.8, RBC 4.01 L, Hgb 11.2 L, Hct 35.2 L, MCV 87.8, MCH 27.9, MCHC 31.8 L, RDW Std Deviation 40.1, RDW Coeff of Mariella 12.6, Plt Count 228, MPV 9.5, Immature Gran % (Auto) 0.200, Neut % (Auto) 52.9, Lymph % (Auto) 36.2, Clark % (Auto) 8.1, Eos % (Auto) 1.9, Baso % (Auto) 0.7, Absolute Neuts (auto) 3.1, Absolute Lymphs (auto) 2.09, Nucleated RBC % 0 10/11/19 04:52: Sodium 144, Potassium 3.7, Chloride 115 H, Carbon Dioxide 21.0, Anion Gap 8, BUN 7, Creatinine 0.67, Estim Creat Clear Calc 96.22, Est GFR (MDRD) Af Amer 133, Est GFR (MDRD) Non-Af 110, BUN/Creatinine Ratio 10.5, Glucose 84, Calcium 8.4 L Current Medications Acetaminophen (Tylenol) 650 mg PO Q6H PRN PRN PRN Reason: Pain Score 1-02/09 Last Admin: 10/11/19 03:20 Dose: 650 mg Documented by: Dextrose (D50w Syringe) 0 gm IV X1 PRN; Protocol PRN Reason: Hypoglycemia Glucagon () 1 mg IM .X1 PRN PRN Reason: Hypoglycemia Sodium Chloride () 250 mls @ 15 mls/hr IV .[id number] PRN PRN Reason: Saline Flush Sodium Chloride () 250 mls @ 15 mls/hr IV .[id number] PRN PRN Reason: Additional IVPB Infusion Ibuprofen (Motrin) 600 mg PO Q8H PRN PRN PRN Reason: Pain Score 1-10/10 Last Admin: 10/11/19 12:16 Dose: 600 mg Documented by: Lamotrigine (Lamictal) 250 mg PO QHS COUNT INCLUDES THE [facility] Last Admin: 10/10/19 21:07 Dose: 250 mg Documented by: Lamotrigine (Lamictal) 200 mg PO DAILY COUNT INCLUDES THE [facility] Last Admin: 10/11/19 10:04 Dose: 200 mg Documented by: Lorazepam (Ativan) 1 mg PO DAILY PRN PRN PRN Reason: Seizure Ondansetron HCl (Zofran) 4 mg IV Q8H PRN PRN PRN Reason: NAUSEA/VOMITING Last Admin: 10/10/19 17:48 Dose: 4 mg Documented by: Oxcarbazepine (Trileptal) 150 mg PO QHS COUNT INCLUDES THE [facility] Last Admin: 10/10/19 23:23 Dose: 150 mg Documented by: Pramipexole Dihydrochloride (Mirapex) 0.25 mg PO QHS COUNT INCLUDES THE [facility] Last Admin: 10/10/19 21:16 Dose: 0.25 mg Documented by: Pyridostigmine [place] (Mestinon) 60 mg PO TID COUNT INCLUDES THE [facility] Last Admin: 10/11/19 06:53 Dose: 60 mg Documented by: Sodium Chloride () 10 - 40 ml IV UD PRN PRN Reason: SALINE FLUSH Zonisamide (Zonegran) 300 mg PO QHS COUNT INCLUDES THE [facility] Last Admin: 10/10/19 21:17 Dose: 300 mg Documented by: Zonisamide (Zonegran) 200 mg PO BREAKFAST COUNT INCLUDES THE [facility] Last Admin: 10/11/19 09:00 Dose: 200 mg Documented by: Discharge Diet: No Restrictions Discharge Activity: Return to Normal Activity Home Medications: Medications to take at Discharge Zonisamide 200 mg PO BREAKFAST 12/23/17 Lorazepam [Ativan] 1 mg PO DAILY PRN PRN 01/07/18 Pyridostigmine [place] [Mestinon] 60 mg PO TID 07/19/18 Zonisamide [Zonegran] 300 mg PO QHS 03/26/19 Ropinirole HCl 0.5 mg PO QHS 10/06/19 Lamotrigine [Lamictal Xr] 200 mg PO DAILY 30 Days #30 tab.er.24 10/11/19 Lamotrigine [Lamictal Xr] 250 mg PO QHS 30 Days #30 tab.er.24 10/11/19 Oxcarbazepine [Trileptal] 150 mg PO QHS 30 Days #30 tab 10/11/19 Following Prescrptions Were Given to Patient: Lamotrigine [Lamictal Xr] 200 mg PO DAILY 30 Days #30 tab.er.24 Transmission Status: Sent to [address] Lamotrigine [Lamictal Xr] 250 mg PO QHS 30 Days #30 tab.er.24 Transmission Status: Sent to [address] Oxcarbazepine [Trileptal] 150 mg PO QHS 30 Days #30 tab Transmission Status: Sent to [address] Primary Care Physician: Macy Akins [employer] REP-C [Primary Care Provider] - Please follow up with your Primary Care Physician in: within 1-2 weeks Please Follow Up With: Gerald Gilmore MD When: within 1-2 weeks Disposition: Home Minutes spent on discharge:: 40 Patient Condition:: Stable Medical Necessity - Tobacco Use Smoking Status: Never smoker Tobacco Use: Non-smoker Meaningful Use Info Meaningful Use Diagnoses (Choose all that apply): None applicable OBSV E&M: 09539 Observation care discharge
[2019-10-11 23:50] LABS: Trileptal-Oxcarbazepine 3 ug/mL (10-35)
== END 2019-10-11 11:39 | disposition home or self-care (01) ==
LOC: ED 13:55 → PCU 16:05
PROVIDERS: Admitting Provider Student in an Organized Health Care Education/Training Program; Emergency Provider Emergency Medicine; PCP Nurse Practitioner; Visit Provider Internal Medicine
DX: R11.2 Nausea with vomiting, unspecified (principal); T42.1X5A Adverse effect of iminostilbenes, initial encounter; G40.909 Epilepsy, unspecified, not intractable, without status epilepticus; G70.00 Myasthenia gravis without (acute) exacerbation; Z79.899 Other long term (current) drug therapy; H53.2 Diplopia; R51 Headache
CPT/HCPCS: 36415; 80048; 80053; 81001; 82542; 84703; 85025; 96361; 96374; 96375; 99218; 99285; J7030; G0378; J2405

== ENCOUNTER → 2019-10-17 | Outpatient (CLI) | payer MEDICAID, SELFPAY ==
[2019-10-10 16:41] VITALS: BMI 23.5
[2019-10-27 00:50] LABS: ACHR AB Modulating 52 % (0-20); ACHR Recep AB, Blocking 43 % (0-25)
== END | disposition home or self-care (01) ==
PROVIDERS: PCP Nurse Practitioner; Referring Provider Psychiatry & Neurology Neurology; Visit Provider Psychiatry & Neurology Neurology
DX: G70.00 Myasthenia gravis without (acute) exacerbation (principal)
CPT/HCPCS: 36415; 83519; 84238

== ENCOUNTER → 2019-10-25 | Outpatient (CLI) | payer MEDICAID, SELFPAY ==
[2019-10-10 16:41] VITALS: BMI 23.5
== END | disposition home or self-care (01) ==
LOC: PSN 07:10
PROVIDERS: PCP Nurse Practitioner; Referring Provider Psychiatry & Neurology Neurology; Visit Provider Psychiatry & Neurology Neurology
DX: G70.00 Myasthenia gravis without (acute) exacerbation (principal); R56.9 Unspecified convulsions
CPT/HCPCS: 95819

== ENCOUNTER → 2019-12-06 13:21 | Outpatient (CLI) | payer MEDICAID, SELFPAY ==
[2019-10-10 16:41] VITALS: BMI 23.5
[2019-12-06 14:52] LABS: Iron 94 ug/dL (50-170); Iron Binding Capacity,Total 348 ug/dL (250-450)
== END ==
PROVIDERS: PCP Nurse Practitioner; Referring Provider Psychiatry & Neurology Neurology; Visit Provider Psychiatry & Neurology Neurology
DX: G25.81 Restless legs syndrome (principal)
CPT/HCPCS: 36415; 83540; 83550

== ENCOUNTER → 2020-02-27 | Outpatient (CLI) | payer MEDICAID, SELFPAY ==
[2019-10-10 16:41] VITALS: BMI 23.5
[2020-02-27 15:36] LABS: Ferritin 9 ng/mL (8-252); Iron 32 ug/dL (50-170); Iron Binding Capacity,Total 378 ug/dL (250-450); PERCENT IRON SATURATION 8.5 % (15.0-55.0)
[2020-03-06 09:14] LABS: ACHR Recep AB, Blocking 41 % (0-25); Acetylcholine Receptor Binding > 80.00 nmol/L (0.00-0.24)
== END | disposition home or self-care (01) ==
PROVIDERS: PCP Nurse Practitioner; Visit Provider Nurse Practitioner Family
DX: G70.00 Myasthenia gravis without (acute) exacerbation (principal)
CPT/HCPCS: 36415; 82728; 83519; 83540; 83550; 84238

== ENCOUNTER → 2020-03-11 14:09 | Outpatient (CLI) | payer MEDICAID, SELFPAY ==
[2019-10-10 16:41] VITALS: BMI 23.5
[2020-03-11 15:35] LABS: Absolute Lymphocyte Count 1.69 X10^3/uL (0.83-4.51); Absolute Neutrophil Count 4.2 X10^3/uL (2.0-7.7); Basophil# 0.04 X10^3/uL; Basophil% 0.6 % (0-1); Eosinophil# 0.09 X10^3/uL; Eosinophils% 1.4 % (0-5); Hematocrit 39.9 % (37-47); Hemoglobin 12.8 g/dL (12.0-15.0); Lymphocyte # 1.69 X10^3/ul (4.0); Lymphocyte % 25.9 % (19-41); Mean Corp Hgb Conc 32.1 g/dL (32-36); Mean Corpuscular Hgb 27.5 pg (27.0-32.0); Mean Corpuscular Volume 85.8 fL (81-99); Mean Platelet Vol. 9.7 fl (6.2-12.0); Monocyte# 0.52 X10^3/uL; NRBC Flagged by Analyzer 0 % (0-5); Neutrophil # 4.18 X10^3/uL (2.7-7.7); Neutrophil % 63.9 % (47-70); Platelet Count 266 K/mm3 (150-450); RBC Distribution Width SD 40.4 fl (35.1-43.9); Red Blood Count 4.65 M/mm3 (4.2-5.4); White Blood Count 6.5 K/mm3 (4.4-11.0)
== END ==
PROVIDERS: PCP Nurse Practitioner; Referring Provider Psychiatry & Neurology Neurology; Visit Provider Psychiatry & Neurology Neurology
DX: G25.81 Restless legs syndrome (principal)
CPT/HCPCS: 36415; 85025

== ENCOUNTER 2020-05-02 21:55 | Emergency (ER) | payer MEDICAID, SELFPAY ==
[2019-10-10 16:41] VITALS: BMI 23.5
[2020-05-02 21:56] VITALS: BP 144/75; PULSE 104; RESP 18; TEMP 36.6; O2SAT 99; BMI 25.2
--- NOTE | 2020-05-02 22:14 | EKG12_ITS ---
Test Reason : SOB Blood Pressure : / mmHG Vent. Rate : 093 BPM Atrial Rate : 093 BPM P-R Int : 170 ms QRS Dur : 078 ms QT Int : 342 ms P-R-T Axes : 062 048 054 degrees QTc Int : 425 ms Normal sinus rhythm Normal ECG Confirmed by TEMI SALGADO, KATHE ([id number]), editor book SALOME MENJIVAR ([id number]) on 05/06/2020 9:04:20 AM Referred By: WALLY Confirmed By:KATHE MEMBRENO MD
--- NOTE | 2020-05-02 22:18 | ED.DCSUM_ITS ---
History of Present Illness Chief Complaint: Shortness of Breath Informant: Patient Narrative: Patient is a 29-year-old female with a past medical history of myasthenia gravis and epilepsy who presents to the emergency department for shortness of breath. She states that this started suddenly this afternoon. She did have previous episodes like this many years ago but was not diagnosed with myasthenia at that time. She is not sure if she is having a crisis. She contacted her neurologist who referred her to the emergency department. She feels like an elephant is sitting on her chest. She denies any history of heart attacks or DVT/PE. No leg swelling or calf pain. She denies any recent cough. No fevers or chills. No abdominal pain. She does not have a smoking history. Past Medical History - Allergies and Home Meds Allergies/Adverse Reactions: Allergies levetiracetam [From Keppra] Allergy (Verified 05/02/20 21:59) Other Hallucinations Penicillins Allergy (Verified 05/02/20 21:59) Rash phenytoin [From Dilantin] Allergy (Verified 05/02/20 21:59) PT UNSURE OF REACTION hallucinations Primary Care Physician: Macy Akins [employer] F[employer]NACE HELPER, RET[employer] FURNACE HELPER-C [Primary Care Provider] - Prior records reviewed: Yes Surgical History: - - Thymectomy, appendectomy. Smoking Status: Never smoker - Family History Paternal Family History: Reports: - - Patient and family present denies any market maternal or paternal family history including heart disease, diabetes, cancer, seizures. Maternal Family History: Reports: - - Patient and family present denies any market maternal or paternal family history including heart disease, diabetes, cancer, seizures. Review of Systems All systems negative except as indicated General: Denies: Chills, Fever, Sweats Eyes: Denies: Visual changes - bilaterally, Diplopia ENT: Denies: Rhinorrhea, Sore throat Cardiovascular: Reports: Chest pain. Denies: Palpitations Respiratory: Reports: Dyspnea. Denies: Cough Gastrointestinal: Denies: Abdominal pain, Nausea, Vomiting, Diarrhea Genitourinary: Denies: Dysuria, Hematuria, Frequency Musculoskeletal: Denies: Back pain, Extremity Pain Skin: Denies: Rash, Wounds Neurological: Denies: Headache, Weakness, Numbness Physical Exam Vital Signs/Narrative: Vital Signs Temp Pulse Resp BP Pulse Ox 05/02/20 21:56 97.8 F 104 H 18 144/75 H 99 Inital Vital Signs reviewed: Yes General: Well nourished, Well developed, No Acute Distress Head: Normocephalic, Atraumatic Eyes: Perrl, EOMI, - - No ptosis ENT: Moist mucous membranes, No rhinorrhea Neck: Supple, Nontender Cardiovascular: Regular rate, Regular rhythm, No murmurs Respiratory: No distress, CTA bilaterally, Chest nontender, - - Patient talking in full sentences. No increased work of breathing. Abdomen: Soft, Nontender, Nondistended, Normal bowel sounds Back: Nontender, Normal Inspection Extremities: Nontender, No edema Skin: Normal color, No rash Neurological: Alert, Oriented x3, Cranial nerves II-XII grossly intact, Normal Strength, Normal Sensation Psychological: Normal affect, Normal Mood Diagnostic/Tx/Re-eval Chest X-Ray - ED: 2 View - Two view x-ray interpreted by myself. No evidence of consolidation, pneumothorax. No pleural effusions. Normal cardiac silhouette. Normal mediastinum. No acute cardiopulmonary process. Radiology interpretation pending. - EKG Initial EKG Interpretation: - - Rate of 93 bpm and normal sinus rhythm. Normal intervals. Normal axis. No ST elevations or depressions. No T wave abnormalities. - Medical Decision Making Patient presents to the emergency department for shortness of breath. This did start all of a sudden. Upon arrival to the emergency department she is satting 99% on room air. She is in no acute distress. No other weakness noted. Will check basic lab work, EKG and chest x-ray. Will check incentive spirometer to evaluate and tidal volume. She is protecting her airway and not having any increased secretions. Respiratory therapy did check current respiratory spirometry which was over 1500. She has been stable throughout ED stay and satting well on room air. She was mildly tachycardic so D-dimer was obtained to evaluate for PE although she has no other risk factors for this. Her troponin is negative. Chest x-ray negative for acute cardiopulmonary abnormality. Patient's D-dimer is within normal limits. She has been stable throughout ED stay. I do feel she is safe for transfer at this time. I do not think that this is a myasthenia crisis as she has no other weakness and just her diaphragm to be effective would be extremely unusual. No other weakness and she has not been having any increased symptoms. Strict return precautions were discussed with her. She is to follow-up with her PCP otherwise. She understands and is agreeable this plan. All questions were answered. ED Disposition - Plan for ED Patient: Disposition: Home or Assisted Living Diagnosis: Dyspnea Instructions: ED Dyspnea Referrals: Macy Akins [employer] FURNACE HELPER, RETORT FURNACE HELPER-C [Primary Care Provider] - 1-2 Days if not improving
[2020-05-02 22:49] LABS: Absolute Neutrophil Count 6.6 X10^3/uL (2.0-7.7); Basophil# 0.05 X10^3/uL; Basophil% 0.5 % (0-1); Eosinophil# 0.16 X10^3/uL; Eosinophils% 1.5 % (0-5); Hemoglobin 13.5 g/dL (12.0-15.0); Lymphocyte % 28.5 % (19-41); Mean Corp Hgb Conc 32.1 g/dL (32-36); Mean Corpuscular Hgb 27.6 pg (27.0-32.0); Mean Corpuscular Volume 85.9 fL (81-99); Mean Platelet Vol. 9.3 fl (6.2-12.0); Monocyte# 0.71 X10^3/uL; Monocyte% 6.8 % (0-10); NRBC Flagged by Analyzer 0 % (0-5); Neutrophil # 6.56 X10^3/uL (2.7-7.7); Neutrophil % 62.4 % (47-70); Platelet Count 290 K/mm3 (150-450); RBC Distribution Width SD 40.7 fl (35.1-43.9); Red Blood Count 4.89 M/mm3 (4.2-5.4); White Blood Count 10.5 K/mm3 (4.4-11.0)
[2020-05-02 22:52] LABS: POSITIVE COUNT NO; POSITIVE DIFFERENTIAL NO; POSITIVE MORPHOLOGY NO
[2020-05-02 22:57] LABS: Internal QC Validated? YES +Cl - CLEAR BKGD; Pregnancy, Serum, hCG Quali. NEGATIVE Negative
[2020-05-02 23:05] LABS: Anion Gap 8 (5-15); BUN 15 mg/dL (7-18); BUN/Creat Ratio 17.3 RATIO (10-20); Calcium,Total 9.1 mg/dL (8.5-10.1); Chloride 109 mmol/L (98-107); Creatinine, Serum 0.87 mg/dL (0.55-1.02); EST Glomerular Filtration Rate 81 mL/min (>60); Est Glom Filt Rate - Afr Amer 98 mL/min (>60); Glucose 82 mg/dL (74-106); Potassium 3.8 mmol/L (3.5-5.1); Sodium Level 139 mmol/L (136-145)
--- NOTE | 2020-05-02 23:10 | RAD_ITS ---
STUDY: X-RAY CHEST REASON FOR EXAM: Female, 29 years old. Onset shortness of breath. Patient states she is having a myasthenia gravis attack. TECHNIQUE: PA and lateral views of the chest. COMPARISON: Chest, 12/22/2018. FINDINGS: The lungs are clear and expanded. There is no demonstrated pleural abnormality. Normal size heart. Normal mediastinum and shima. Normal visualized pulmonary arteries. Normal visualized aortic arch and descending thoracic aorta. Normal visualized thoracic spine. Normal visualized ribs, clavicles, and shoulders. There is no demonstrated abnormality of the visualized soft tissue structures of the upper abdomen. RAD/Chest PA and Lateral IMPRESSION: No acute cardiopulmonary disease. Electronically Signed: Lauri Jimenez DO at 23:33 EST Tel [phone], Service support ,
[2020-05-03 00:13] LABS: D-Dimer Quantitative (DVT/PE) 0.38 FEU/ug/m (0.27-0.49)
--- NOTE | 2020-05-03 00:55 | ED.RN ---
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 DR SUÁREZ PAGED. HE WAS UNABLE TO ANSWER. PT MADE AWARE.
[2020-05-03 01:13] VITALS: BP 112/67; PULSE 92; RESP 15; O2SAT 100
[2020-05-03 01:14] VITALS: BP 112/67; PULSE 92; RESP 15; O2SAT 100
== END 2020-05-03 01:14 | disposition home or self-care (01) ==
PROVIDERS: Emergency Provider Emergency Medicine; PCP Nurse Practitioner
DX: R06.00 Dyspnea, unspecified (principal)
CPT/HCPCS: 71046; 80048; 84484; 84703; 85025; 85379; 93005; 99282

== ENCOUNTER → 2020-05-16 13:38 | Outpatient (CLI) | payer MEDICAID, SELFPAY ==
[2019-10-10 16:41] VITALS: BMI 23.5
[2020-05-02 21:56] VITALS: BMI 25.2
[2020-05-16 14:25] LABS: Ferritin 7 ng/mL (8-252); Iron 57 ug/dL (50-170); Iron Binding Capacity,Total 366 ug/dL (250-450)
== END ==
PROVIDERS: PCP Nurse Practitioner; Visit Provider Nurse Practitioner Family
DX: E61.1 Iron deficiency (principal)
CPT/HCPCS: 36415; 82728; 83540; 83550

== ENCOUNTER → 2020-08-19 14:47 | Outpatient (CLI) | payer MEDICAID, SELFPAY ==
[2020-08-19 15:49] LABS: Absolute Lymphocyte Count 1.91 X10^3/uL (0.83-4.51); Absolute Neutrophil Count 4.6 X10^3/uL (2.0-7.7); Basophil# 0.05 X10^3/uL; Basophil% 0.7 % (0-1); Eosinophil# 0.15 X10^3/uL; Hematocrit 39.9 % (37-47); Hemoglobin 12.8 g/dL (12.0-15.0); Lymphocyte # 1.91 X10^3/ul (0.83-4.51); Lymphocyte % 26.1 % (19-41); Mean Corp Hgb Conc 32.1 g/dL (32-36); Mean Corpuscular Hgb 27.7 pg (27.0-32.0); Mean Corpuscular Volume 86.4 fL (81-99); Monocyte# 0.58 X10^3/uL; Monocyte% 7.9 % (0-10); NRBC Flagged by Analyzer 0 % (0-5); Neutrophil # 4.61 X10^3/uL (2.7-7.7); Platelet Count 302 K/mm3 (150-450); RBC Distribution Width CV 13.7 % (11.6-14.6); RBC Distribution Width SD 42.6 fl (35.1-43.9); Red Blood Count 4.62 M/mm3 (4.2-5.4); White Blood Count 7.3 K/mm3 (4.4-11.0)
[2020-08-19 16:15] LABS: ALB/GLOB Ratio 1.1 RATIO (0.9-2.4); AST(SGOT) 14 U/L (15-37); Alanine Aminotransfer ALT/SGPT 25 U/L (13-56); Albumin, Serum 3.8 g/dL (3.2-5.0); Alkaline Phosphatase 99 U/L (45-117); Anion Gap 4 (5-15); BUN 11 mg/dL (7-18); Calcium,Total 8.9 mg/dL (8.5-10.1); Chloride 109 mmol/L (98-107); Creatinine, Serum 0.78 mg/dL (0.55-1.02); EST Glomerular Filtration Rate 91 mL/min (>60); Est Glom Filt Rate - Afr Amer 110 mL/min (>60); Globulin 3.6 g/dL (2.2-4.2); Glucose 71 mg/dL (74-106); LDH 154 U/L (84-246); Potassium 3.5 mmol/L (3.5-5.1); Protein, Total 7.4 g/dL (6.4-8.2); Sodium Level 139 mmol/L (136-145)
== END ==
LOC: LABSPEC 14:52 → LAB 08-20 06:20
PROVIDERS: PCP Nurse Practitioner; Referring Provider Psychiatry & Neurology Neurology; Visit Provider Psychiatry & Neurology Neurology
DX: G70.00 Myasthenia gravis without (acute) exacerbation (principal)
CPT/HCPCS: 36415; 80053; 83615; 85025

== ENCOUNTER 2020-10-16 11:47 | Day surgery (SDC) | payer MEDICAID, SELFPAY ==
[2020-10-16] VITALS (8 sets, daily range): BP systolic 95–117; BP diastolic 51–73; PULSE 78–100; RESP 16–18; TEMP 36.2–36.8; O2SAT 96–100; BMI 30.1
[2020-10-16 12:11] LABS: Internal QC Validated? YES +Cl - CLEAR BKGD; Pregnancy, Urine Negative Negative
[2020-10-16] MEDS: Lactated Ringers 1,000 ML 100 ML IV (12:44)
--- NOTE | 2020-10-16 13:36 | PCM.HP.BLA ---
History and Physical Date of Admission: 10/16/20 HISTORY AND PHYSICAL ? Doug Morin 1990 ? ? REFERRING PHYSICIAN: Gerald Gilmore MD ? CHIEF COMPLAINT: Consult (Port placement) ? HPI: The patient is a 30 year old female with a diagnosis of Vascular catheter fitting or adjustment (primary encounter diagnosis). Doug is currently scheduled to undergo chemotherapy and needs vascular access for treatment. The patient denies a prior history of central venous access. ? The patient is right hand dominant. ? The patient is being seen by me today at the request of Dr. Gilmore for my opinion and advice regarding Vascular catheter fitting or adjustment (primary encounter diagnosis). ? ? PAST MEDICAL HISTORY PAST MEDICAL HISTORY Diagnosis Date ? Abnormal Pap smear of cervix ? ? with HPV- h/o LEEP ? Depression ? ? resolved ? Epilepsy (HCC) ? ? Family history of epilepsy ? ? Aunt with traumatic epilepsy ? Migraine ? ? disorder ? ? She was two weeks late; but no complication ? Pleurisy ? ? recurrent. ? Traumatic brain injury (HCC) ~ 9 years of age ? Fell off the monkey bars; lost consciousness 3-5 minutes ? ? PAST SURGICAL HISTORY PAST SURGICAL HISTORY Procedure Laterality Date ? APPENDECTOMY ? ? ? LEEP PROCEDURE ([facility])_*[place] ? CURRENT MEDICATIONS Current Outpatient Medications Medication Sig Dispense Refill ? rOPINIRole (REQUIP) 0.5 mg tablet take 1 tablet by mouth 1-3 HOURS PRIOR TO BEDTIME ? ? ? OXcarbazepine (TRILEPTAL) 150 mg tablet Take 150 mg by mouth daily at bedtime. ? ? ? LORazepam (ATIVAN) 1 mg tablet take 1 tablet by mouth if needed for SEIZURE GERATER THAN 5 MINUTES DIRECTED (FOR 30 DAYS) ? ? ? eculizumab (SOLIRIS INTRAVENOUS) Inject intravenously. ? ? ? L.acidoph-B.lactis-B.longum (FLORAJEN3) 460 mg (7.5-6- 1.5 bill. cell) cap Take 1 capsule by mouth once daily. (Patient not taking: Reported on 02/06/2019 ) 30 capsule 2 ? levonorgestrel (MIRENA) 20 mcg/24 hours (5 yrs) 52 mg IUD 1 Each by INTRAUTERINE route one time only. ? ? ? pyridostigmine (MESTINON) 60 mg tablet Take 60 mg by mouth three times daily. ? ? ? lamoTRIgine ER (LAMICTAL XR) 100 mg 24 hr tablet Take two (2.0) in AM and four(4.0) tablets at bedtime 540 tablet 1 ? zonisamide (ZONEGRAN) 100 mg capsule Take 3 capsules by mouth once daily. 270 capsule 1 ? acetaminophen (TYLENOL) 325 mg tablet Take 650 mg by mouth every 6 hours as needed. ? ? ? No current facility-administered medications for this visit. ? ? ALLERGIES: Dilantin [Phenytoin], Keppra [Levetiracetam], and Penicillins ? PERSONAL HISTORY: SOCIAL HISTORY Social History ? Tobacco Use ? Smoking status: Never Smoker ? Smokeless tobacco: Never Used Substance Use Topics ? Alcohol use: No ? Drug use: No ? FAMILY HISTORY: FAMILY HISTORY FAMILY HISTORY Problem Relation Age of Onset ? Headache Mother ? ? Headache Maternal Grandfather ? ? Multiple Sclerosis Sister ? ? Seizures Maternal Aunt ? ? Traumatic epilepsy ? ? REVIEW OF SYMPTOMS: The review of systems data was entered by the nurse and reviewed by me ? Nursing Notes: Catie Martinez RN 10/14/2020 8:56 AM Signed REVIEW OF SYSTEMS: General: The patient notes fatigue, denies weight loss, notes weight gain, denies feeling hot, and denies feelings of cold. Eyes: The patient denies glaucoma, denies eye injury/surgery, wears glasses or contacts. Ear/Nose/Throat: The patient notes allergies, notes hayfever, denies ear infections, and denies bloody noses. Cardiovascular: The patient denies chest pain, denies heart disease, denies high blood pressure,denies cardiac stent, denies prior heart attack, notes irregular heart beat, denies high cholesterol, denies poor circulation, notes heart failure, other cardiac issues, denies claudication, denies cold feet, denies peripheral arterial stent. Respiratory: The patient denies tuberculosis, denies pneumonia, denies frequent cough, denies pulmonary embolism, notes shortness of breath, and denies coughing up blood. Gastrointestinal: The patient notes difficulty swallowing, denies acid reflux, denies ulcers, denies vomiting, denies jaundice/hepatitis, denies gallbladder problems, denies black or tarry stools, denies hemorrhoids, denies bleeding from rectum, denies diverticulitis, denies constipation, denies diarrhea, denies loss of stool control, and denies hernias. Kidney/Bladder: The patient denies kidney stones, notes urine infections, and denies bloody urine. Skin: The patient denies a history of skin cancer, denies bleeding/changing moles, and denies a history of skin rash. Neurologic: The patient notes a history of epilepsy/convulsions, notes headaches, notes head/spinal injuries, and denies stroke/TIA. Psychiatric: The patient notes psychiatric medications, denies depression, and denies voices, denies substance abuse. Endocrine: The patient denies thyroid disorders, denies diabetes, and denies hormonal problems. Hematologic: The patient notes a history of bruising, notes bleeding, and notes anemia, denies blood clots. Infections: The patient notes a history of measles and mumps, denies rheumatic fever, and denies sexually transmitted diseases. Musculoskeletal: The patient denies back pain/injury, denies back problems, denies sciatica, notes knee/foot trouble, denies arthritis, or denies gout. ? ? When was patient's last Mammogram screening? N/A ? Last Colonoscopy: None ? Catie Martinez RN ? PHYSICAL EXAMINATION: ? General: The patient is 30 year old female, well nourished, well hydrated in no acute distress. The patient is oriented to time, place, and person. ? VITALS: Last menstrual period 04/19/2020. There is no height or weight on file to calculate BMI. ? HEENT: Normal cephalic, ataumatic, pupils are equally round, sclera are anicteric, mucous membranes are moist, oropharynx is clear. Neck has no masses, asymmetry or lymphadenopathy. Thyroid is unremarkable. ? Respiratory: Clear to auscultation and percussion. Normal respiratory excursion and pattern. ? Cardiac: Examination is regular rate and rhythm. ? Abdominal exam: Soft, nontender, with no palpable masses. No hepatosplenomegaly. No palpable hernias. ? Rectal exam: exam deferred ? Extremities: no clubbing, cyanosis or edema. No adenopathy. ? Other: ? ? LABORATORY VALUES: As Noted ? RADIOLOGIC STUDIES: As Noted ? Assessment IMPRESSION: Vascular catheter fitting or adjustment (primary encounter diagnosis), need for IV access ? PLAN: I plan to perform a right ij port a cath placement. The planned surgical procedure was discussed extensively with the patient. The risks, benefits, anticipated outcomes and possible complications were mentioned. My staff has also explained the procedure in understandable terms and the patient was given the option to take printed material concerning the planned procedure. The patient had the opportunity to ask questions concerning the planned procedure. The patient freely consents to the planned procedure. ? Planned Procedure: right Internal Jugular [facility] - [id number] ? Patient Weight Last 1 Encounter Wt Readings: Date: Wt: 04/22/2020 66.2 kg (146 lb) ? Antibiotic: clindamycin 900mg IVPB nutrition representative to OR ? Planned Anesthetic: MAC with local ? I WILL NOT plan to access the port at the time of surgery. ? Diagnoses: (Z45.2) Vascular catheter fitting or adjustment (primary encounter diagnosis) ? ? ? The patient is being seen by me today at the request of Dr. Gilmore for my opinion and advice regarding Vascular catheter fitting or adjustment (primary encounter diagnosis). ? COVID (Procedure Consent) Procedure Criteria ? Procedure Criteria: Yes Elective The surgeon/proceduralist and patient have discussed in detail the risk of exposure to and/or potential harm posed by the COVID-19 virus with having a surgery/procedure at this time versus the risk of? delaying the surgery/procedure. It is not possible to know either the risk of delaying the surgery or procedure or chance of getting an infection with perfect accuracy, but a joint decision was made between the patient and the surgeon/proceduralist ?to proceed at this time with the scheduled surgery/procedure as indicated on the consent form. ? Mark Malcolm III, MD I have re-examined the patient. There are no clinical changes since date of exam.
[2020-10-16] MEDS: Lidocaine 1% (30 ml sdv) 30 ML Vial (14:05)
[2020-10-16] MEDS: Bupivacaine Mpf 0.5% 30 ML VIAL (14:05)
--- NOTE | 2020-10-16 14:24 | OP.PCM_ITS ---
Problems Associated Problem List Diagnoses (1) Vascular catheter fitting or adjustment: Report of Operation Date of Procedure: 10/16/20 Pre-Operative Diagnosis: Vascular fitting and adjustment Post-Operative Diagnosis: Same Surgery/Procedure Performed:: Placement of a right IJ PowerPort Surgeon: Mark Malcolm solutions delivery consultant: None Type of Anesthesia: MAC/Supplemental/Local Anesthesiologist: Monty Juárez Estimated Blood Loss (mL): < 25 cc Description of Procedure: Patient was brought into the operating room. Placed in the supine position. Under excellent MAC anesthetic ultrasound the right neck identified the right internal jugular vein marked the neck and chest appropriately. Patient was placed in the headdown position. The right neck and chest area was sterilely prepped and draped in usual fashion. Local was injected into the neck. Seldinger's technique was used to gain access to the right internal jugular vein guidewire was placed over the needle the needle was removed. Fluoroscopy was used to confirm proper placement of the guidewire. I injected local in the chest made an incision used electrocautery to create a pocket for the port. Made a skin miladys in the neck place a dilator and sheath over the guidewire removing the dilator and guidewire a single lumen catheter was placed over the sheath the sheath was removed. I used fluoroscopy to confirm proper length. I tunneled from the pocket over the collarbone into the neck and brought the catheter down. I cut the catheter to length placed the locking hub on the catheter of the port onto the catheter and then secured the tube with a locking hub. I sutured the port into the pocket created with 2 sutures of 2-0 Prolene. I flushed it I irrigated it with 5 cc of hep flush it flushed and irrigated quite well. Incisions were then brought together with deep dermal stitches of 3-0 Vicryl. Dermabond was applied. Sterile dressings were applied. Patient tolerated the procedure well. Postoperative chest x-ray was obtained. Admit VTE Documentation VTE Present on Admission: No VTE Pharm Prophylaxis ordered?: No Reason prophylaxis not ordered:: Treatment Not Indicated
--- NOTE | 2020-10-16 14:32 | DCINST_ITS ---
Discharge Instructions Procedure Port-A-Cath Diet Discharge Diet: No restrictions (Pain medication may cause nausea. You should typically eat light foods as you take your pain medication.) Activity Discharge Activity: May Shower (with the bandage in place 1-2 days after surgery. DO NOT SHOWER WHEN YOUR PORT IS ACCESSED.) Additional Activity Instructions:: May not drive, work with heavy equipment, or sign legal documents for [address]. [address] if you are no longer taking narcotic pain medications. You may drive when you are no longer taking pain medications. Dressing / Incision Additional Dressing/Incision Instructions:: Leave the bandage on for 2-3 days. When you remove the bandage, leave the steri-strips intact until they fall off. Follow Up Care Please Follow Up With: Teressa Hsieh PA-C When: Call office to schedule an appointment to be seen in 7 days. Test Results: Test results from this visit will be discussed in further detail at your follow-up appointment, if applicable. Discharge Plan Admission Attending Provider: Mark Malcolm Primary Care Provider: Macy Akins NP Discharge Orders/Prescriptions Prescriptions: New oxycodone-acetaminophen [Endocet] 5-325 mg tablet 1 tab PO Q6H PRN (Reason: pain) 5 Days Qty: 20 RF: 0 Continued zonisamide 100 capsule 200 mg PO 0800 RF: 0 lorazepam 1 MG tablet 1 mg PO DAILY PRN PRN (Reason: Seizure) RF: 0 zonisamide 100 MG capsule 300 mg PO 1999 RF: 0 ropinirole 0.5 MG tablet 1 mg PO 1999 RF: 0 oxcarbazepine 150 mg tablet 150 mg PO 1999 RF: 0 Mirena 20 mcg/24 hours (6 yrs) 52 mg Intrauterine Device 20 mcg INTRAUTERINE UD RF: 0 Soliris 300 mg/30 mL Solution 1,200 mg IV .QOWEEK RF: 0 lamotrigine 200 mg tablet extended release 24hr 200 mg PO 0800 RF: 0 lamotrigine 250 mg tablet extended release 24hr 250 mg PO QHS RF: 0 Other Ambulatory Orders: Chest 1 View (Portable) (Routine) Facility: [facility] - Location: [facility] Ordered By: Dr. Mark Malcolm Referrals / Follow Up: Macy Akins NP, FAMILY [employer] WORKER-C [Primary Care Provider] -
--- NOTE | 2020-10-16 15:00 | RAD_ITS ---
STUDY: X-RAY CHEST REASON FOR EXAM: Female, 30 years old. Port placement TECHNIQUE: Single AP portable view of the chest. COMPARISON: Comparison is made with prior study dated 05/02/2020. FINDINGS: A right-sided mike catheter is in situ with the tip in the right atrium. Mild increased markings in the medial aspect of the right upper lobe. There is no demonstrated pleural abnormality. Normal size heart. Normal mediastinum and shima. Normal visualized pulmonary arteries. Normal visualized aortic arch and descending thoracic aorta. Normal visualized thoracic spine. Normal visualized ribs, clavicles, and shoulders. There is no demonstrated abnormality of the visualized soft tissue structures of the upper abdomen. RAD/CXR for Line Placement IMPRESSION: The tip of the right portacatheter is in the right atrium. Mild increased linear markings in the right upper lobe. Electronically Signed: Mitchel Conrad MD at 15:16 EDT , Service support ,
== END 2020-10-16 16:00 ==
LOC: SDC 11:48 → AC 11:48
PROVIDERS: Anesthesiology; PCP Nurse Practitioner; Referring Provider Surgery; Visit Provider Surgery
PROC: (CPT 36561; principal; 2020-10-16 13:30)
DX: Z45.2 Encounter for adjustment and management of vascular access device (principal); Z87.820 Personal history of traumatic brain injury; G40.909 Epilepsy, unspecified, not intractable, without status epilepticus
CPT/HCPCS: 36561; 71045; 77001; 81025; 87426; C9803; J7120; C1788

== ENCOUNTER → 2020-10-25 07:56 | Outpatient (CLI) | payer MEDICAID, SELFPAY ==
[2020-10-16 12:26] VITALS: BMI 30.1
--- NOTE | 2020-10-25 07:58 | VDUE_ITS ---
Reason For Study: NECK PAIN Right Proximal RT proximal IJV is partially compressible . Intravenous catheter is visualized . ACUTE THROMBUS noted surrounding catheter into proximal Sublcalvian V. The remainder of Subclavian V is completely compressible and color filling. Right Lower Arm Right radial vein is compressible. Right ulnar vein is compressible. Right Arm Right axillary vein is spontaneous, patent, phasic, competent, compressible and demonstrates augmentation. Right brachial vein is compressible. Right cephalic vein is compressible. Right basilic vein is compressible. Patient Safety Prelim results called to Dr Malcolm. VL/Venous Duplex US, Unilateral Interpretation Summary Catheter noted in the right internal jugular vein with visible thrombus around the catheter. Partial flow still noted around the catheter. More extensive thrombus extends into the right subclavian vein with lack of eddie w Distal right subclavian vein has resumption of flow Patent and compressible right axillary, brachial, radial, ulnar veins Patent and compressible right cephalic and basilic veins Ordering Physician: Mark Malcolm Referring Physician: DYLAN VELARDE Performed By: Noris Anne, KENIACS, RVT ?
== END ==
PROVIDERS: PCP Nurse Practitioner; Referring Provider Surgery; Visit Provider Surgery
DX: M54.2 Cervicalgia (principal); Z45.2 Encounter for adjustment and management of vascular access device
CPT/HCPCS: 93971

== ENCOUNTER → 2020-10-28 10:48 | Outpatient (CLI) | payer MEDICAID, SELFPAY ==
[2020-10-16 12:26] VITALS: BMI 30.1
[2020-10-28 12:46] LABS: Absolute Lymphocyte Count 1.49 X10^3/uL (0.83-4.51); Basophil# 0.04 X10^3/uL; Basophil% 0.6 % (0-1); Eosinophil# 0.14 X10^3/uL; Eosinophils% 1.9 % (0-5); Hematocrit 39.6 % (37-47); Hemoglobin 12.9 g/dL (12.0-15.0); Lymphocyte # 1.49 X10^3/ul (0.83-4.51); Lymphocyte % 20.6 % (19-41); Mean Corp Hgb Conc 32.6 g/dL (32-36); Mean Corpuscular Hgb 27.2 pg (27.0-32.0); Mean Corpuscular Volume 83.5 fL (81-99); Mean Platelet Vol. 9.9 fl (6.2-12.0); Monocyte# 0.56 X10^3/uL; Monocyte% 7.8 % (0-10); NRBC Flagged by Analyzer 0 % (0-5); Neutrophil # 4.97 X10^3/uL (2.7-7.7); Neutrophil % 68.8 % (47-70); Platelet Count 287 K/mm3 (150-450); RBC Distribution Width CV 13.1 % (11.6-14.6); RBC Distribution Width SD 39.9 fl (35.1-43.9); Red Blood Count 4.74 M/mm3 (4.2-5.4); White Blood Count 7.2 K/mm3 (4.4-11.0)
[2020-10-28 12:47] LABS: International Normalized Ratio 1.3; Prothrombin Time (Protime)PT. 15.4 SECONDS (11.7-14.9)
[2020-10-28 12:48] LABS: Partial Thromboplast Time 40.1 Seconds (24.1-36.2)
[2020-10-28 13:00] LABS: ALB/GLOB Ratio 1.1 RATIO (0.9-2.4); AST(SGOT) 18 U/L (15-37); Alanine Aminotransfer ALT/SGPT 29 U/L (13-56); Alkaline Phosphatase 100 U/L (45-117); Anion Gap 9 (5-15); BUN 11 mg/dL (7-18); Calcium,Total 8.9 mg/dL (8.5-10.1); Chloride 107 mmol/L (98-107); Creatinine, Serum 0.78 mg/dL (0.55-1.02); EST Glomerular Filtration Rate 90 mL/min (>60); Est Glom Filt Rate - Afr Amer 109 mL/min (>60); Globulin 3.5 g/dL (2.2-4.2); Glucose 86 mg/dL (74-106); Potassium 3.7 mmol/L (3.5-5.1); Protein, Total 7.5 g/dL (6.4-8.2); Sodium Level 140 mmol/L (136-145)
== END ==
PROVIDERS: PCP Internal Medicine; Visit Provider Internal Medicine
DX: I82.C11 Acute embolism and thrombosis of right internal jugular vein (principal)
CPT/HCPCS: 36415; 80053; 85025; 85610; 85730

== ENCOUNTER 2020-11-02 02:08 | Observation (INO) | payer MEDICAID, SELFPAY ==
[2020-10-16 12:26] VITALS: BMI 30.1
[2020-11-02] VITALS (13 sets, daily range): BP systolic 109–136; BP diastolic 62–92; PULSE 78–109; RESP 12–20; TEMP 36.1–37.1; O2SAT 96–100; BMI 23.8; BMI 24.1
--- NOTE | 2020-11-02 02:11 | CT_ITS ---
STUDY: CTA CHEST REASON FOR EXAM: Female, 30 years old. dyspnea, known DVT RADIATION DOSAGE (If Supplied By Facility): CTDIvol = ( 10.47 ) mGy, DLP = ( 404.28 ) mGycm TECHNIQUE: The examination was performed with the intravenous administration of IV 75mL Isovue-370. Post-processing of the angiographic images was performed, with multiplanar reformation and 3D reconstruction. Individualized dose optimization techniques were used for this CT. COMPARISON: 02/21/2015. FINDINGS: Normal enhancement of the main pulmonary artery and right and left pulmonary arteries. Normal enhancement of the bilateral peripheral pulmonary arteries. There is no demonstrated pulmonary embolism. Normal thoracic aorta and visualized great vessels. There is no demonstrated aortic dissection. Normal heart and pericardium. Normal mediastinum. Normal hilar regions. Normal visualized trachea and bronchi. The lungs are well expanded. Mild posterior dependent atelectasis. Mild linear left lower lobe atelectasis. Pulmonary parenchyma. Normal pleura. Normal chest wall structures. Normal osseous structures. Normal visualized upper abdomen. CT/CTA Chest W/WO Contrast IMPRESSION: Normal CTA chest examination, without a demonstrated pulmonary embolism or arterial dissection. Mild bilateral lower lobe atelectasis as described. Otherwise no acute cardiopulmonary process. Electronically Signed: Jes Rider MD at 2:50 EDT , Service support ,
--- NOTE | 2020-11-02 02:11 | CT_ITS ---
STUDY: CT BRAIN WITHOUT CONTRAST REASON FOR EXAM: Female, 30 years old. headache RADIATION DOSAGE (If Supplied By Facility): CTDIvol = ( 44.99 ) mGy, DLP = ( 796.11 ) mGycm TECHNIQUE: Transaxial CT imaging of the brain was performed without administration of intravenous contrast material. Individualized dose optimization techniques were used for this CT. COMPARISON: 10/06/2019. FINDINGS: Normal soft tissue structures. Normal calvarium. Normal size ventricles and extra-axial spaces for the patient''s age. Normal white matter tracts of the cerebral hemispheres. Normal basal ganglia and thalami. Normal brainstem. Normal cerebellum. There is no intracranial hemorrhage. There are no findings of an acute ischemic infarction. Normal visualized paranasal sinuses. CT/Brain/Head without Contrast IMPRESSION: Normal unenhanced CT scan of the brain. Electronically Signed: Jes Rider MD at 2:46 EDT , Service support ,
--- NOTE | 2020-11-02 02:11 | ED.RN ---
CALLED FOR EKG PER RN REQUEST, PULLED OLD EKGS FOR
--- NOTE | 2020-11-02 02:12 | EKG12_ITS ---
Test Reason : SOB Blood Pressure : / mmHG Vent. Rate : 098 BPM Atrial Rate : 098 BPM P-R Int : 170 ms QRS Dur : 090 ms QT Int : 360 ms P-R-T Axes : 062 049 043 degrees QTc Int : 459 ms Normal sinus rhythm Nonspecific ST abnormality Abnormal ECG When compared with ECG of 02-MAY-2020 22:41, T wave inversion no longer evident in Anterior leads Confirmed by TEMI SALGADO, KATHE ([id number]), avid editor SALOME MENJIVAR ([id number]) on 11/12/2020 8:57:37 AM Referred By: CARTER Confirmed By:KATHE MEMBRENO MD
--- NOTE | 2020-11-02 02:22 | EDS_ITS ---
HPI History of Present Illness Chief Complaint: Chest Pain Informant: family Narrative Narrative: Patient presents via private vehicle with family secondary to headache, chest pain, shortness of breath, decreased responsiveness. Patient was recently diagnosed with a clot in the right jugular vein. She was started on Eliquis 2 days ago. Family states headache developed last evening. She called family back around 1 AM complaining of continued headache with vomiting. She was able to get in the car to come to the hospital but while in route had decreased level of consciousness and reportedly was complaining of chest pain and shortness of breath. On review of records patient does have history of seizures. [facility] Medical History Anemia Chest pain Difficulty chewing Difficulty swallowing History of stress test Injury of head and neck Leg cramps Migraine headache Myasthenia gravis Non-smoker Normal echocardiogram (~05/18/16) Seizures Shortness of breath on exertion Home Medications zonisamide 200 mg PO 0800 12/23/17 [History Last Taken 10/16/20] lorazepam 1 mg PO DAILY PRN PRN 01/07/18 [History Last Taken 05/03/18] zonisamide 300 mg PO 199903/26/19 [History Last Taken 03/25/19 20:00] ropinirole 1 mg PO 199910/06/19 [History Last Taken Unknown] Mirena 20 mcg INTRAUTERINE UD 10/14/20 [History Last Taken Unknown] Soliris 1,200 mg IV .QOWEEK 10/14/20 [History Last Taken Unknown] lamotrigine 200 mg PO 0800 10/14/20 [History Last Taken 10/16/20] lamotrigine 250 mg PO QHS 10/14/20 [History Last Taken Unknown] oxcarbazepine 150 mg PO 199910/14/20 [History Last Taken Unknown] ferrous sulfate [iron] 325 mg PO DAILY 11/02/20 [History Last Taken Unknown] Allergy/AdvReac Type Severity Reaction Status Date / Time levetiracetam [From Keppra] Allergy Other Verified 11/02/20 02:18 Penicillins Allergy Rash Verified 11/02/20 02:18 phenytoin [From Dilantin] Allergy PT UNSURE Verified 11/02/20 02:18 OF REACTION shellfish derived Allergy Other Verified 11/02/20 02:18 Surgical History Hx of appendectomy Hx of thymectomy Hx of total hip arthroplasty Social History (Updated 11/02/20 @ 03:[address] Bruna Garcia MD) household members: spouse Smoking Status: Never smoker second hand exposure: Yes alcohol intake: never substance use type: does not use ROS ROS ED Review of Systems ROS Unobtainable: due to mental status Cardiovascular Cardiovascular: Reports chest pain Respiratory/Chest Respiratory/Chest: Reports dyspnea; Denies cough Gastrointestinal Gastrointestinal: Denies abdominal pain Neurologic Neurologic: Reports headache(s) EXAM Physical Exam Const Vital Signs: 11/02/20 02:10 11/02/20 02:12 11/02/20 03:10 Temperature 97 F L Temperature Source Temporal Pulse Rate 103 H 99 Respiratory Rate 19 H 20 H Respiratory Effort Short of Breath Blood Pressure 136/92 H 125/89 H Blood Pressure Mean 106 101 Pulse Ox 100 98 Oxygen Delivery Method Room Air Room Air Positive well nourished and well developed General Appearance ED: well developed HEENT Negative for trauma Neck supple Chest Wall inspection of chest normal Chest Narrative: Port in place in the right upper chest. Resp normal respiratory effort and clear to auscultation bilaterally Cardio Rate: tachycardic GI normal to inspection, nondistended, normoactive bowel sounds and non-tender Palpation: soft Extremity Extremity Narrative: Moves all 4 extremities. Neuro Neuro Narrative: Patient's eyes are open and she looks around the room. She will answer some questions by nodding her head. She will move all 4 extremities. MDM MDM MDM Narrative Medical decision making narrative: EKG and blood work are sent. Patient is immediately taken for head CT as well as CTA of the chest. Lab Data Attestation: I reviewed the patient's lab results. Labs: Laboratory Results - last 24 hr 11/02/20 11/02/20 11/02/20 02:12 02:17 02:17 WBC 8.8 RBC 4.48 Hgb 12.3 Hct 37.3 MCV 83.3 MCH 27.5 MCHC 33.0 RDW Std Deviation 39.5 RDW Coeff of Mariella 13.1 Plt Count 265 MPV 9.2 Immature Gran % (Auto) 0.200 Neut % (Auto) 57.0 Lymph % (Auto) 33.1 [place] % (Auto) 7.0 Eos % (Auto) 2.0 Baso % (Auto) 0.7 Absolute Neuts (auto) 5.0 Absolute Lymphs (auto) 2.92 Nucleated RBC % 0 PT 15.2 H INR 1.3 APTT 33.8 Sodium Potassium Chloride Carbon Dioxide Anion Gap BUN Creatinine Estim Creat Clear Calc Est GFR (MDRD) Af Amer Est GFR (MDRD) Non-Af BUN/Creatinine Ratio Glucose Calcium Magnesium 2.2 Total Bilirubin 0.30 Direct Bilirubin 0.11 AST 16 ALT 26 Alkaline Phosphatase 105 Troponin I High Sens Total Protein 7.2 Albumin 3.7 Globulin 3.5 Lipase 163 Serum , Qual 11/02/20 11/02/20 02:17 02:17 WBC RBC Hgb Hct MCV MCH MCHC RDW Std Deviation RDW Coeff of Mariella Plt Count MPV Immature Gran % (Auto) Neut % (Auto) Lymph % (Auto) [place] % (Auto) Eos % (Auto) Baso % (Auto) Absolute Neuts (auto) Absolute Lymphs (auto) Nucleated RBC % PT INR APTT Sodium 138 Potassium 2.9 L Chloride 108 H Carbon Dioxide 21.0 Anion Gap 9 BUN 10 Creatinine 0.83 Estim Creat Clear Calc 76.96 Est GFR (MDRD) Af Amer 103 Est GFR (MDRD) Non-Af 85 BUN/Creatinine Ratio 12.1 Glucose 124 H Calcium 8.7 Magnesium Total Bilirubin Direct Bilirubin AST ALT Alkaline Phosphatase Troponin I High Sens < 3.0 L Total Protein Albumin Globulin Lipase Serum , Qual NEGATIVE Radiography Diagnostic Testing: Radiology Impression Brain CT 11/02/20 02:11 IMPRESSION: Normal unenhanced CT scan of the brain. Electronically Signed: Jes Rider MD at 2:46 EDT , Service support , Chest CTA 11/02/20 02:11 IMPRESSION: Normal CTA chest examination, without a demonstrated pulmonary embolism or arterial dissection. Mild bilateral lower lobe atelectasis as described. Otherwise no acute cardiopulmonary process. Electronically Signed: Jes Rider MD at 2:50 EDT , Service support , EKG Initial EKG: Attestation: I personally reviewed and interpreted this EKG as follows: Interpretation: Sinus Rhythm (Sinus at 98. No acute ischemia.) Treatment and Re-Evaluation Comments:: I reviewed the patient's CT images as soon as they were available. No obvious head bleed noted. No obvious chest abnormality appreciated. On return to the room patient is tearful and tapping her head on her chest. She will only say maybe 1 word at a time and ask for help. She is given a dose of fentanyl. Patient's labs are reviewed. Potassium is low and replacement has been ordered. In speaking with family at bedside this is not typical of her post-ictal state. There was no obvious tonic-clonic seizure activity noted. Patient's respiratory status is not compromised and she has no obvious weakness to lead me to believe this is a myasthenic crisis. Discharge Plan Dx/Rx/DC Orders Clinical Impression: Chest pain, Acute hypokalemia, Cephalgia Disposition Disposition: Acute Care Hospital [facility] Discharge Date/Time: 11/02/20 04:06
[2020-11-02 02:24] LABS: Absolute Lymphocyte Count 2.92 X10^3/uL (0.83-4.51); Basophil# 0.06 X10^3/uL; Basophil% 0.7 % (0-1); Eosinophil# 0.18 X10^3/uL; Hematocrit 37.3 % (37-47); Hemoglobin 12.3 g/dL (12.0-15.0); Lymphocyte # 2.92 X10^3/ul (0.83-4.51); Lymphocyte % 33.1 % (19-41); Mean Corpuscular Hgb 27.5 pg (27.0-32.0); Mean Corpuscular Volume 83.3 fL (81-99); Mean Platelet Vol. 9.2 fl (6.2-12.0); Monocyte# 0.62 X10^3/uL; NRBC Flagged by Analyzer 0 % (0-5); Neutrophil # 5.02 X10^3/uL (2.7-7.7); Platelet Count 265 K/mm3 (150-450); RBC Distribution Width CV 13.1 % (11.6-14.6); RBC Distribution Width SD 39.5 fl (35.1-43.9); Red Blood Count 4.48 M/mm3 (4.2-5.4); White Blood Count 8.8 K/mm3 (4.4-11.0)
[2020-11-02] MEDS: 0.9% Normal Saline 1,000 ML 150 ML IV ×3 (02:33→17:11)
[2020-11-02 02:40] LABS: Internal QC Validated? YES +Cl - CLEAR BKGD; Pregnancy, Serum, hCG Quali. NEGATIVE Negative
[2020-11-02 02:46] LABS: Anion Gap 9 (5-15); BUN 10 mg/dL (7-18); BUN/Creat Ratio 12.1 RATIO (10-20); Calcium,Total 8.7 mg/dL (8.5-10.1); Chloride 108 mmol/L (98-107); Creatinine, Serum 0.83 mg/dL (0.55-1.02); EST Glomerular Filtration Rate 85 mL/min (>60); Est Glom Filt Rate - Afr Amer 103 mL/min (>60); Estimated Creatinine Clearance 76.96 ml/min; Glucose 124 mg/dL (74-106); Potassium 2.9 mmol/L (3.5-5.1); Sodium Level 138 mmol/L (136-145); Troponin-I HS < 3.0 pg/mL (3.0-53.7)
[2020-11-02 02:47] LABS: International Normalized Ratio 1.3; Prothrombin Time (Protime)PT. 15.2 SECONDS (11.7-14.9)
[2020-11-02 02:48] LABS: Partial Thromboplast Time 33.8 Seconds (24.1-36.2)
[2020-11-02] MEDS: fentaNYL 100 MCG/2 ML Ampul 25 MCG IV (02:54)
--- NOTE | 2020-11-02 03:07 | HP.PCM.HOS_ITS ---
HPI - General General Date of Admission: 11/02/20 Date of Service: 11/02/20 Chief Complaint: Headache, emesis, nausea, chest pain, dyspnea, confusion. HPI Narrative The patient is a 30 y/o F w/ PMHx: Seizure disorder, Migraines, Myasthenia gravis, recent 10/16/20 placement of R IJ powerport with unfortunate recent R IJ clot diagnosed with initiation of eliquis 2 days prior with onset headache the evening prior which was ongoing through the early am with concurrent nausea, emesis prompting family to bring patient to the ED for evaluation with noted en route complaints of chest discomfort, midsternal, aching in nature, 4-5 out of 10 in severity with associated dyspnea with also increased lethargy. She has had R shoulder and RUE pain since her access placement prompting PCP evaluation with noted clot at that time. Work-up in the ED included T 97, heart rate 103, BP 136/92, respiratory rate 19, 100% on room air, CBC with WC 8.8, hemoglobin 12.3, platelet 265 without marked shift, coags with PT 15.2 otherwise not marked appearing, BMP with potassium 2.9, chloride 108, glucose 124, troponin less than 3, negative serum testing, pending lamotrigine level upon presentation, CT of the brain with no acute intracranial findings, CTPA with no demonstrated PE or arterial dissection, only noted mild bilateral lower lobe ate lectasis otherwise no acute cardiopulmonary findings, EKG with sinus rhythm with no acute evidence of ischemia. Family reports that this is not typical of patient's postictal state. Patient has no obvious focal weakness. In the ED patient mental status improves and she will answer some questions but does often shake and nod her head to questioning. [facility] Medical History Anemia Chest pain Difficulty chewing Difficulty swallowing History of stress test Injury of head and neck Leg cramps Migraine headache Myasthenia gravis Non-smoker Normal echocardiogram (~05/18/16) Seizures Shortness of breath on exertion Home Medications zonisamide 200 mg PO 0800 12/23/17 [History Last Taken 10/16/20] lorazepam 1 mg PO DAILY PRN PRN 01/07/18 [History Last Taken 05/03/18] zonisamide 300 mg PO 199903/26/19 [History Last Taken 03/25/19 20:00] ropinirole 1 mg PO 199910/06/19 [History Last Taken Unknown] Mirena 20 mcg INTRAUTERINE UD 10/14/20 [History Last Taken Unknown] Soliris 1,200 mg IV .QOWEEK 10/14/20 [History Last Taken Unknown] lamotrigine 200 mg PO 0800 10/14/20 [History Last Taken 10/16/20] lamotrigine 250 mg PO QHS 10/14/20 [History Last Taken Unknown] oxcarbazepine 150 mg PO 199910/14/20 [History Last Taken Unknown] ferrous sulfate [iron] 325 mg PO DAILY 11/02/20 [History Last Taken Unknown] Allergy/AdvReac Type Severity Reaction Status Date / Time levetiracetam [From Keppra] Allergy Other Verified 11/02/20 02:18 Penicillins Allergy Rash Verified 11/02/20 02:18 phenytoin [From Dilantin] Allergy PT UNSURE Verified 11/02/20 02:18 OF REACTION shellfish derived Allergy Other Verified 11/02/20 02:18 no significant family history (Patient denies any marked maternal/paternal family hx including HD, DM, CA.) Surgical History Hx of appendectomy Hx of thymectomy Hx of total hip arthroplasty Social History (Updated 11/02/20 @ 03:[address] Bruna Garcia MD) household members: spouse Smoking Status: Never smoker second hand exposure: Yes alcohol intake: never substance use type: does not use ROS ROS Narrative Admission Review of Systems: CONSTITUTIONAL: No weight loss, fever, chills, + weakness or fatigue. HEENT: Eyes: No visual loss, blurred vision, double vision or yellow sclerae. Ears, Nose, Throat: No hearing loss, sneezing, congestion, runny nose or sore throat. SKIN: No rash or itching, lesions, wounds. CARDIOVASCULAR: + Chest pain, No palpitations, edema, orthopnea, syncopal events. RESPIRATORY: + shortness of breath, No cough or sputum, wheezing, hemoptysis. GASTROINTESTINAL: + anorexia, nausea, vomiting, No diarrhea, abdominal pain, melena, BRBPR. GENITOURINARY: No dysuria, frequency, urgency or retention. NEUROLOGICAL: + Headache, ? breakthrough seizure and post-ictal phase, No dizziness, syncope, paralysis, ataxia, numbness or tingling in the extremities, focal weakness, change in bowel or bladder control. MUSCULOSKELETAL: + muscle, back pain, joint pain or stiffness. HEMATOLOGIC: No anemia, bleeding or bruising. LYMPHATICS: No enlarged nodes. No history of splenectomy. PSYCHIATRIC: + history of depression or anxiety. ENDOCRINOLOGIC: No reports of sweating, cold or heat intolerance. No polyuria or polydipsia. ALLERGIES: No history of asthma, hives, eczema or rhinitis. Vital Signs Vital Signs Vital Signs: 11/02/20 02:10 11/02/20 02:12 Temperature 97 F L Temperature Source Temporal Pulse Rate 103 H Respiratory Rate 19 H Respiratory Effort Short of Breath Blood Pressure 136/92 H Blood Pressure Mean 106 Pulse Ox 100 Oxygen Delivery Method Room Air Weight Weight: 130 lb Body Mass Index (BMI) 23.8 Physical Exam Narrative Physical Examination: General: Awake, alert, following all commands, oriented to self and place but answering questions with yes and no head-nodding primarily but when pushed will answer vocally as well, fatigued appearing, laying in the ED bed. Skin: Normal color, normal turgor, no icterus, no cyanosis. HEENT: AT/NC, EOMI, PERRLA, moderately dry MM, no carotid bruits or JVD noted. Lungs: CTA bilaterally, moderate effort, mild decrease BL bases, no rales, ronchi or wheezing. Heart: Regular rate and rhythm; no gallop, rub audible, + reproducible discomfort w/ palpation of this midsternal region. Abdomen: Soft, NTTP, ND, normal BS, no HSM. Extremities: No cyanosis, clubbing, or edema. Neurological: Awake, alert, following all commands, oriented to self and place but answering questions with yes and no head-nodding primarily but when pushed will answer vocally as well, cognitive function not baseline intact; pupils equally reactive to light and accommodation, cranial nerves grossly normal, movi ng all 4 extremities, no focal deficits, strength mildly to moderately globally decreased. Psychiatric: Affect appears fatigued, no acute evidence of depressive or anxiety feelings. Results Lab / Micro Data Result Diagrams: 11/02/20 02:17 11/02/20 02:17 Labs: Laboratory Results - last 24 hr 11/02/20 11/02/20 11/02/20 02:17 02:17 02:17 WBC 8.8 RBC 4.48 Hgb 12.3 Hct 37.3 MCV 83.3 MCH 27.5 MCHC 33.0 RDW Std Deviation 39.5 RDW Coeff of Mariella 13.1 Plt Count 265 MPV 9.2 Immature Gran % (Auto) 0.200 Neut % (Auto) 57.0 Lymph % (Auto) 33.1 [place] % (Auto) 7.0 Eos % (Auto) 2.0 Baso % (Auto) 0.7 Absolute Neuts (auto) 5.0 Absolute Lymphs (auto) 2.92 Nucleated RBC % 0 PT 15.2 H INR 1.3 APTT 33.8 Sodium 138 Potassium 2.9 L Chloride 108 H Carbon Dioxide 21.0 Anion Gap 9 BUN 10 Creatinine 0.83 Estim Creat Clear Calc 76.96 Est GFR (MDRD) Af Amer 103 Est GFR (MDRD) Non-Af 85 BUN/Creatinine Ratio 12.1 Glucose 124 H Calcium 8.7 Troponin I High Sens < 3.0 L Serum , Qual 11/02/20 02:17 WBC RBC Hgb Hct MCV MCH MCHC RDW Std Deviation RDW Coeff of Mariella Plt Count MPV Immature Gran % (Auto) Neut % (Auto) Lymph % (Auto) [place] % (Auto) Eos % (Auto) Baso % (Auto) Absolute Neuts (auto) Absolute Lymphs (auto) Nucleated RBC % PT INR APTT Sodium Potassium Chloride Carbon Dioxide Anion Gap BUN Creatinine Estim Creat Clear Calc Est GFR (MDRD) Af Amer Est GFR (MDRD) Non-Af BUN/Creatinine Ratio Glucose Calcium Troponin I High Sens Serum , Qual NEGATIVE Radiology Impression Brain CT 11/02/20 02:11 IMPRESSION: Normal unenhanced CT scan of the brain. Electronically Signed: Jes Rider MD at 2:46 EDT , Service support , Chest CTA 11/02/20 02:11 IMPRESSION: Normal CTA chest examination, without a demonstrated pulmonary embolism or arterial dissection. Mild bilateral lower lobe atelectasis as described. Otherwise no acute cardiopulmonary process. Electronically Signed: Jes Rider MD at 2:50 EDT , Service support , Assessment & Plan Assessment/Plan (1) Breakthrough seizure: (2) Intractable migraine: QUALIFIERS: Migraine type: unspecified Status migrainosus presence: with status migrainosus Qualified Code(s): G43.911 - Migraine, unspec ified, intractable, with status migrainosus PLAN: The patient is a 30 y/o F w/ PMHx: Seizure disorder, Migraines, Myasthenia gravis, recent 10/16/20 placement of R IJ powerport with unfortunate recent R IJ clot diagnosed with initiation of eliquis 2 days prior with onset headache the evening prior which was ongoing through the early am with concurrent nausea, emesis prompting family to bring patient to the ED for evaluation with noted en route complaints of chest discomfort, midsternal, aching in nature, 4-5 out of 10 in severity with associated dyspnea with also i ncreased lethargy. 1. Questionable Intractable Complex Migraine: Patient with atypical presentati on, possible intractable migraine component, initiate IV VPA 500mg Q6 hours, IV Decadron 4mg Q6 hours, IV Toradol 15 mg q8 scheduled x 5 doses ongoing given anticoagulation and Neurontin 100mg TID with meals with de-escalation if increased sedation. Given atypical presentation will also request MRI of the brain as noted #2 also. 2. Questionable Breakthrough Seizure w/ Seizure disorder, epilepsy with post- ictal phase: Patient with questionable breakthrough seizure although postictal phase is atypical per discussion with family but patient was confused and encephalopathic, slowly improving. CT of the head with no acute findings. Will maintain on seizure precautions, will obtain repeat EEG, obtain brain MRI and following these would plan Neurology consultation. As noted given possible #1 al so using depacon temporarily. Will continue home AED extensive regimen. PRN ativan IV for seizure activity. 3. Chest pain, Atypical, suspected musculoskeletal with reproducibility on evaluation: Patient with reproducible discomfort upon palpation of the anterior chest, will maintain on telemetry, cycle cardiac enzymes, repeat EKGs, CTPA without acute findings as noted. 4. Hypokalemia: Admission K+ 2.9, magnesium level requested, supplementation given in the ED, repeat level in AM. 5. Myasthenia gravis: Patient with no obvious focal weakness, oxygenation remains appropriate, no evidence of any accessory muscle usage, low suspicion for any crisis, patient maintained on Solar[employer] outpatient. 6. Recent right IJ clot: Patient with recent right IJ port placement for ongoing Solaris medication with unfortunate resulting clot, continue patient home Eliquis regimen with as noted very judicious usage of Toradol. 7. DVT prophylaxis: Continue patient home Eliquis regimen. Charges/Coding Visit Charges OBSV E&M: 62469 Initial observation care L3
[2020-11-02] MEDS: Ketorolac 15 MG/ML Vial IV ×4 (03:30→19:55)
[2020-11-02 03:52] LABS: AST(SGOT) 16 U/L (15-37); Alanine Aminotransfer ALT/SGPT 26 U/L (13-56); Albumin, Serum 3.7 g/dL (3.2-5.0); Alkaline Phosphatase 105 U/L (45-117); Bilirubin, Direct 0.11 mg/dL (0.00-0.30); Globulin 3.5 g/dL (2.2-4.2); Lipase 163 U/L (73-393); Magnesium 2.2 mg/dL (1.6-2.6); Protein, Total 7.2 g/dL (6.4-8.2)
[2020-11-02] MEDS: Ondansetron 4 MG/2 ML Vial IV ×2 (03:58→06:26)
[2020-11-02 04:14] LABS: Thyroid Stim Hormone (TSH) 2.86 uIU/mL (0.358-3.74)
[2020-11-02 05:11] LABS: Absolute Lymphocyte Count 1.26 X10^3/uL (0.83-4.51); Basophil# 0.05 X10^3/uL; Basophil% 0.5 % (0-1); Eosinophil# 0.05 X10^3/uL; Eosinophils% 0.5 % (0-5); Hematocrit 36.7 % (37-47); Lymphocyte # 1.26 X10^3/ul (0.83-4.51); Lymphocyte % 11.6 % (19-41); Mean Corp Hgb Conc 32.7 g/dL (32-36); Mean Corpuscular Hgb 27.4 pg (27.0-32.0); Mean Corpuscular Volume 83.8 fL (81-99); Mean Platelet Vol. 9.4 fl (6.2-12.0); Monocyte% 4.6 % (0-10); NRBC Flagged by Analyzer 0 % (0-5); Neutrophil # 8.96 X10^3/uL (2.7-7.7); Neutrophil % 82.5 % (47-70); Platelet Count 276 K/mm3 (150-450); RBC Distribution Width CV 13.1 % (11.6-14.6); RBC Distribution Width SD 39.9 fl (35.1-43.9); Red Blood Count 4.38 M/mm3 (4.2-5.4); White Blood Count 10.9 K/mm3 (4.4-11.0)
[2020-11-02 05:30] LABS: ALB/GLOB Ratio 1.1 RATIO (0.9-2.4); AST(SGOT) 13 U/L (15-37); Alanine Aminotransfer ALT/SGPT 25 U/L (13-56); Albumin, Serum 3.6 g/dL (3.2-5.0); Alkaline Phosphatase 97 U/L (45-117); Anion Gap 7 (5-15); BUN 8 mg/dL (7-18); BUN/Creat Ratio 11.9 RATIO (10-20); Calcium,Total 8.1 mg/dL (8.5-10.1); Chloride 112 mmol/L (98-107); Creatinine, Serum 0.67 mg/dL (0.55-1.02); EST Glomerular Filtration Rate 108 mL/min (>60); Est Glom Filt Rate - Afr Amer 131 mL/min (>60); Estimated Creatinine Clearance 95.34 ml/min; Globulin 3.2 g/dL (2.2-4.2); Glucose 105 mg/dL (74-106); Protein, Total 6.8 g/dL (6.4-8.2); Sodium Level 140 mmol/L (136-145); Troponin-I HS < 3.0 pg/mL (3.0-53.7)
[2020-11-02 05:35] LABS: Amphetamine Urine VISTA NEGATIVE (<1000 ng/mL); Barbiturate Urine VISTA NEGATIVE (< 200 ng/mL); Benzodiazepine Urine VISTA NEGATIVE (< 200 ng/mL); Cocaine Urine VISTA NEGATIVE (< 300 ng/mL); Ecstacy Urine VISTA NEGATIVE (< 500 ng/mL); Methadone Urine VISTA NEGATIVE (< 300 ng/mL); PCP Urine VISTA NEGATIVE (< 25 ng/mL); THC Urine VISTA NEGATIVE (< 50 ng/mL); Vista UDS pH Range 6
--- NOTE | 2020-11-02 05:55 | MRI_ITS ---
HISTORY: Migraine, seizure. TECHNIQUE: Multiplanar and multisequence MR images of the brain were obtained without gadolinium. # of images incl. paperwork: [id number]. COMPARISON: CT same date, MR 03/27/2019. FINDINGS: BRAIN PARENCHYMA: No significant signal abnormality. No abnormal focus of restricted diffusion or acute intracranial hemorrhage. Normal morphology and position of the midline structures. CSF SPACES: Cerebral ventricles, cortical sulci, and other extra-axial CSF spaces within normal limits in size. No significant mass effect or midline shift. No extra-axial fluid collection. VASCULAR SYSTEM: Major intracranial flow voids are preserved. ORBITS: Symmetric in appearance. PARANASAL SINUSES/MASTOID AIR CELLS: Clear. MRI/Brain without Contrast IMPRESSION: No evidence for significant signal abnormality in the brain. Unremarkable examination. at 1314 Reported and signed by: Mayra Singletary MD Electronically Signed: Mayra Singletary MD at 13:13 EDT Tel , Service support ,
--- NOTE | 2020-11-02 05:55 | EKG12_ITS ---
Test Reason : CP ADMIT Blood Pressure : / mmHG Vent. Rate : 103 BPM Atrial Rate : 103 BPM P-R Int : 194 ms QRS Dur : 086 ms QT Int : 354 ms P-R-T Axes : 062 042 038 degrees QTc Int : 463 ms Sinus tachycardia Otherwise normal ECG When compared with ECG of 02-NOV-2020 02:13, MANUAL COMPARISON REQUIRED, DATA IS UNCONFIRMED Confirmed by TEMI SALGADO, KATHE ([id number]), publications editor SALOME MENJIVAR ([id number]) on 11/12/2020 7:46:28 AM Referred By: DR GARNER Confirmed By:KATHE MEMBRENO MD
[2020-11-02] MEDS: 0.9% Saline Lock 10 ML Syringe IV ×2 (06:26→14:17)
[2020-11-02] MEDS: dexAMETHasone 4 MG/ML Vial IV ×3 (06:30→18:29)
[2020-11-02 08:29] LABS: Troponin-I HS < 3.0 pg/mL (3.0-53.7)
[2020-11-02] MEDS: Gabapentin 100 MG Capsule PO ×3 (08:37→18:29)
[2020-11-02] MEDS: Ferrous Sulfate 325 MG Tablet PO (08:37)
[2020-11-02] MEDS: ZONISAMIDE 100 MG CAPSULE 200 MG PO (11:06)
[2020-11-02] MEDS: Famotidine 20 MG Tablet PO ×2 (11:06→21:51)
--- NOTE | 2020-11-02 13:44 | TELEMED_ITS ---
[facility] has confirmed receipt of a request for visit. This document confirms receipt of the order initiating the consult. To find the results of the consultation, please view the patient's reports for the scanned Telemed Consult.
[2020-11-02] MEDS: Pramipexole Di-HCl 0.5 MG Tablet PO (19:55)
[2020-11-02] MEDS: OXcarbazepine 150 MG Tablet PO (19:55)
[2020-11-02] MEDS: ZONISAMIDE 100 MG CAPSULE 300 MG PO (19:56)
[2020-11-02] MEDS: APIXABAN 5 MG TABLET PO (21:51)
[2020-11-03] VITALS (12 sets, daily range): BP systolic 109–114; BP diastolic 55–71; PULSE 81–110; RESP 12–18; TEMP 36.8–37.3; O2SAT 95–100
[2020-11-03] MEDS: Ketorolac 15 MG/ML Vial IV ×5 (00:24→23:50)
[2020-11-03] MEDS: dexAMETHasone 4 MG/ML Vial IV ×5 (00:24→23:51)
[2020-11-03] MEDS: 0.9% Normal Saline 1,000 ML 150 ML IV (00:25)
[2020-11-03] MEDS: ZONISAMIDE 100 MG CAPSULE 200 MG PO (08:37)
[2020-11-03] MEDS: Ferrous Sulfate 325 MG Tablet PO (08:37)
[2020-11-03] MEDS: Gabapentin 100 MG Capsule PO ×3 (08:37→17:37)
--- NOTE | 2020-11-03 10:44 | PCM.PN.HOSP ---
Subjective Subjective See paper chart for billing and note Objective Data Objective Data Vital Signs: Vital Signs Temp Pulse Resp BP Pulse Ox 98.2 F 94 16 114/71 97 11/03/20 08:26 11/03/20 08:26 11/03/20 08:26 11/03/20 08:26 11/03/20 08:26 Oxygen Delivery Method Room Air Weight: 167 lb 8.821 oz Body Mass Index (BMI) 24.1 Intake & Output: Intake and Output for Last 24 Hours 11/02/20 11/03/20 11/04/20 03:59 03:59 03:59 Intake Total 4522.50 / 4522.50 175 / 175 Balance 4522.50 / 4522.50 175 / 175 Lab / Micro Data Result Diagrams: 11/02/20 05:05 11/02/20 05:05 Radiography Diagnostic Testing: Radiology Impression Brain MRI 11/02/20 05:55 IMPRESSION: No evidence for significant signal abnormality in the brain. Unremarkable examination. at 1314 Reported and signed by: Mayra Singletary MD Electronically Signed: Mayra Singletary MD at 13:13 EDT Tel , Service support ,
[2020-11-03] MEDS: Famotidine 20 MG Tablet PO ×2 (10:53→22:29)
[2020-11-03] MEDS: APIXABAN 5 MG TABLET PO ×2 (10:53→22:29)
[2020-11-03] MEDS: 0.9% Saline Lock 10 ML Syringe IV ×2 (13:02→23:52)
[2020-11-03] MEDS: OXcarbazepine 150 MG Tablet PO (20:21)
[2020-11-03] MEDS: Pramipexole Di-HCl 0.5 MG Tablet PO (20:21)
[2020-11-03] MEDS: ZONISAMIDE 100 MG CAPSULE 300 MG PO (20:22)
[2020-11-03] MEDS: Acetaminophen 325 MG Tablet 650 MG PO (22:29)
[2020-11-04 02:59] VITALS: PULSE 75
[2020-11-04 04:45] VITALS: BP 107/57; PULSE 81; RESP 16; TEMP 37.2; O2SAT 97
[2020-11-04] MEDS: 0.9% Saline Lock 10 ML Syringe IV (05:26)
[2020-11-04] MEDS: Ketorolac 15 MG/ML Vial IV ×2 (05:27→12:24)
[2020-11-04] MEDS: dexAMETHasone 4 MG/ML Vial IV ×2 (05:27→12:24)
[2020-11-04 07:00] VITALS: PULSE 78
[2020-11-04 07:31] VITALS: O2SAT 98
[2020-11-04] MEDS: ZONISAMIDE 100 MG CAPSULE 200 MG PO (09:45)
[2020-11-04] MEDS: Gabapentin 100 MG Capsule PO ×2 (09:45→12:25)
[2020-11-04] MEDS: Ferrous Sulfate 325 MG Tablet PO (09:46)
[2020-11-04] MEDS: Famotidine 20 MG Tablet PO (09:46)
[2020-11-04] MEDS: APIXABAN 5 MG TABLET PO (09:46)
[2020-11-04 09:47] VITALS: BP 121/68; PULSE 102; RESP 18; TEMP 37.1; O2SAT 100
--- NOTE | 2020-11-04 11:10 | PCM.DC ---
Discharge Instructions Diet Discharge Diet: No restrictions Activity Discharge Activity: Return to Normal Activity Dressing / Incision Call your doctor if you observe: Fever of 101 or Higher, Shortness of breath, Dizziness, Swelling in the ankles, Chest pain and Increased palpitations (irregular heartbeat) Follow Up Care Test Results: Test results from this visit will be discussed in further detail at your follow-up appointment, if applicable. Discharge Plan Admission Admit Date/Time: 11/02/20 03:30 Attending Provider: Reddy Alvarez Primary Care Provider: Soha Perdomo Instructions Patient Instructions: ED Chest Pain, Noncardiac Discharge Orders/Prescriptions Prescriptions: Continued zonisamide 100 capsule 200 mg PO 0800 RF: 0 lorazepam 1 MG tablet 1 mg PO DAILY PRN PRN (Reason: Seizure) RF: 0 zonisamide 100 MG capsule 300 mg PO QHS RF: 0 ropinirole 0.5 MG tablet 1 mg PO QHS RF: 0 oxcarbazepine 150 mg tablet 150 mg PO QHS RF: 0 Mirena 20 mcg/24 hours (6 yrs) 52 mg Intrauterine Device 20 mcg INTRAUTERINE UD RF: 0 Soliris 300 mg/30 mL Solution 1,200 mg IV .QOWEEK RF: 0 lamotrigine 200 mg tablet extended release 24hr 200 mg PO 0800 RF: 0 lamotrigine 250 mg tablet extended release 24hr 250 mg PO QHS RF: 0 ferrous sulfate [iron] 325 mg (65 mg iron) Tablet 325 mg PO DAILY RF: 0 Eliquis 5 mg tablet 5 mg PO BID RF: 0 Referrals / Follow Up: Soha Perdomo MD [Primary Care Provider] - Gerald Gilmore MD [NON-STAFF] - In 1 Week Disposition Disposition (needs filled in before D/C Order can be placed): Home, Self Care
--- NOTE | 2020-11-04 15:43 | DS.PCM_ITS ---
Providers Date of Admission: 11/02/20 Primary Care Physician: Dr. Soha Perdomo MD Reason For Visit: CHEST PAIN, POSSIBLE INTRACTABLE MIGRAINE, POSSIBL Diagnosis Discharge Diagnosis (1) Breakthrough seizure: Status: Acute Code(s): G40.919 - Epilepsy, unspecified, intractable, without status epilepticus (2) Intractable migraine: Status: Acute Code(s): G43.919 - Migraine, unspecified, intractable, without status migrainosus Medications at Discharge Home Medications zonisamide 200 mg PO 0800 12/23/17 lorazepam 1 mg PO DAILY PRN PRN 01/07/18 zonisamide 300 mg PO QHS 03/26/19 ropinirole 1 mg PO QHS 10/06/19 Mirena 20 mcg INTRAUTERINE UD 10/14/20 Soliris 1,200 mg IV .QOWEEK 10/14/20 lamotrigine 200 mg PO 0800 10/14/20 lamotrigine 250 mg PO QHS 10/14/20 oxcarbazepine 150 mg PO QHS 10/14/20 Eliquis 5 mg PO BID 11/02/20 ferrous sulfate [iron] 325 mg PO DAILY 11/02/20 Hospital Course Operations None Procedures Electroencephalogram Summary of Care Provided Minutes Spent on Discharge: 45 Hospital Course: Per HPI: The patient is a 30 y/o F w/ PMHx: Seizure disorder, Migraines, Myasthenia gravis, recent 10/16/20 placement of R IJ powerport with unfortunate recent R IJ clot diagnosed with initiation of eliquis 2 days prior with onset headache the evening prior which was ongoing through the early am with concurrent nausea, emesis prompting family to bring patient to the ED for evaluation with noted en route complaints of chest discomfort, midsternal, aching in nature, 4-5 out of 10 in severity with associated dyspnea with also increased lethargy. She has had R shoulder and RUE pain since her access placement prompting PCP evaluation with noted clot at that time. Work-up in the ED included T 97, heart rate 103, BP 136/92, respiratory rate 19, 100% on room air, CBC with WC 8.8, hemoglobin 12.3, platelet 265 without marked shift, coags with PT 15.2 otherwise not marked appearing, BMP with potassium 2.9, chloride 108, glucose 124, troponin less than 3, negative serum testing, pending lamotrigine level upon presentation, CT of the brain with no acute intracranial findings, CTPA with no demonstrated PE or arterial dissection, only noted mild bilateral lower lobe atelectasis otherwise no acute cardiopulmonary findings, EKG with sinus rhythm with no acute evidence of ischemia. Family reports that this is not typical of patient's postictal state. Patient has no obvious focal weakness. In the ED patient mental status improves and she will answer some questions but does often shake and nod her head to questioning. Hospital Course: 1. Possible breakthrough seizure versus intractable complex migraine -She was started on migraine meds with Decadron and Toradol as well as Neurontin -She was also started on Depakote to help control her seizures. She had an MRI and an EEG, the MRI was unremarkable and the EEG just demonstrated epileptiform patterns that she has had previously -Neurology was consulted and did not want to make any make medication changes and discussed with her the need to avoid driving per [place] law -She was able to contact her own neurologist who did not want her to change any of her medications especially since she is on medication for her myasthenia gravis that is infused. She is able to get an appointment with him this week and she does feel safe to go home and would like to go home today. She denies any further headache, she did have some musculoskeletal chest pain I did discuss with her that even though she is on Eliquis it is safe for her to take periodic ibuprofen to help with the pain. 2. Chest pain -Atypical, multiple wall high-sensitivity troponins were negative EKG was unremarkable and she had reproducible pain on palpation. 3. Myasthenia gravis, recent IJ clot on the right are all medical conditions which complicate her care. Her home medications were continued where appropriate Physical Exam Const alert, oriented x3 and no apparent distress General Appearance: cooperative HEENT normocephalic Mouth: dry mucous membranes Eyes PERRL, EOMs intact bilaterally and conjunctivae normal Neck supple and no JVD Resp normal respiratory effort, no retractions, no use of accessory muscles and clear to auscultation bilaterally Auscultation: Negative for crackles, rales, rhonchi or wheezes Cardio regular rate, regular rhythm, S1 normal heart sound, S2 normal heart sound and no murmurs GI soft to palpation, non-tender and non-distended; Negative for hepatosplenomegaly Extremity no clubbing, cyanosis or edema Skin no rashes or lesions noted Neuro no focal motor deficits and no sensory deficits noted Psych affect normal Appearance: appropriate Weight / BMI Weight Weight: 165 lb 9.074 oz Body Mass Index (BMI) 24.1 ABG / Lab / Microbiology Data Result Diagrams: 11/02/20 05:05 11/02/20 05:05 D/C Instructions Discharge Diet: No restrictions Call your doctor if you observe: Fever of 101 or Higher, Shortness of breath, Dizziness, Swelling in the ankles, Chest pain and Increased palpitations (irregular heartbeat) Meaningful Use Info Meaningful Use Diagnoses (Choose all that apply): None applicable Discharge Plan Admission Admit Date/Time: 11/02/20 03:30 Attending Provider: Reddy Alvarez Primary Care Provider: Soha Perdomo Instructions Patient Instructions: ED Chest Pain, Noncardiac Discharge Orders/Prescriptions Prescriptions: Continued zonisamide 100 capsule 200 mg PO 0800 RF: 0 lorazepam 1 MG tablet 1 mg PO DAILY PRN PRN (Reason: Seizure) RF: 0 zonisamide 100 MG capsule 300 mg PO QHS RF: 0 ropinirole 0.5 MG tablet 1 mg PO QHS RF: 0 oxcarbazepine 150 mg tablet 150 mg PO QHS RF: 0 Mirena 20 mcg/24 hours (6 yrs) 52 mg Intrauterine Device 20 mcg INTRAUTERINE UD RF: 0 Soliris 300 mg/30 mL Solution 1,200 mg IV .QOWEEK RF: 0 lamotrigine 200 mg tablet extended release 24hr 200 mg PO 0800 RF: 0 lamotrigine 250 mg tablet extended release 24hr 250 mg PO QHS RF: 0 ferrous sulfate [iron] 325 mg (65 mg iron) Tablet 325 mg PO DAILY RF: 0 Eliquis 5 mg tablet 5 mg PO BID RF: 0 Referrals / Follow Up: Soha Perdomo MD [Primary Care Provider] - Gerald Gilmore MD [NON-STAFF] - In 1 Week Disposition Disposition (needs filled in before D/C Order can be placed): Home, Self Care Charges/Coding Visit Charges OBSV E&M: 18674 Observation care discharge
== END 2020-11-04 11:33 | disposition home or self-care (01) ==
LOC: ED 02:38 → PCU 03:34
PROVIDERS: Admitting Provider Family Medicine; Emergency Provider Emergency Medicine; PCP Internal Medicine; Visit Provider Family Medicine
DX: R07.89 Other chest pain (principal); G43.919 Migraine, unspecified, intractable, without status migrainosus; G40.919 Epilepsy, unspecified, intractable, without status epilepticus; E87.6 Hypokalemia; I82.C11 Acute embolism and thrombosis of right internal jugular vein; D64.9 Anemia, unspecified; G70.00 Myasthenia gravis without (acute) exacerbation; R31.0 Gross hematuria; Z97.5 Presence of (intrauterine) contraceptive device; Z79.01 Long term (current) use of anticoagulants; Z79.899 Other long term (current) drug therapy
CPT/HCPCS: 36591; 70450; 70551; 71275; 80048; 80053; 80076; 80307; 82542; 83690; 83735; 84443; 84484; 84703; 85025; 85610; 85730; 93005; 95819; 96361; 96365; 96366; 96367; 96375; 96376; 97802; 99218; 99251; 99284; J7030; Q9967; A4216; G0378; G0463; J2405

== ENCOUNTER 2021-02-17 21:51 | Emergency (ER) | payer MEDICAID, SELFPAY ==
[2021-02-17 21:54] VITALS: BP 140/76; PULSE 117; RESP 18; TEMP 36.9; O2SAT 98
[2021-02-17 23:07] VITALS: O2SAT 95
--- NOTE | 2021-02-17 23:07 | EKG12_ITS ---
Test Reason : SEIZURE Blood Pressure : / mmHG Vent. Rate : 108 BPM Atrial Rate : 108 BPM P-R Int : 176 ms QRS Dur : 078 ms QT Int : 336 ms P-R-T Axes : 050 015 038 degrees QTc Int : 450 ms Sinus tachycardia Nonspecific T wave abnormality Abnormal ECG Confirmed by TEMI SALGADO, KATHE ([id number]), acquisition editor SALOME MENJIVAR ([id number]) on 02/18/2021 9:26:16 AM Referred By: OLGA Confirmed By:KATHE MEMBRENO MD
--- NOTE | 2021-02-17 23:07 | RAD_ITS ---
STUDY: X-RAY CHEST REASON FOR EXAM: Female, 30 years old. chest pain TECHNIQUE: 1 view COMPARISON: 05/02/2020 FINDINGS: Right-sided implanted port terminates in the distal SVC.Cardiomediastinal silhouette is unremarkable. Costophrenic angles are sharp. Lungs are clear. The trachea is midline. There is no pneumothorax. The bones are grossly intact. RAD/Chest 1 View (Portable) IMPRESSION: No acute cardiopulmonary process. Electronically Signed: Chris Limon MD at 0:09 EDT Tel , Service support ,
--- NOTE | 2021-02-17 23:07 | CT_ITS ---
STUDY: CT BRAIN WITHOUT CONTRAST REASON FOR EXAM: Female, 30 years old. [facility] RADIATION DOSAGE (If Supplied By Facility): CTDIvol = ( 44.99 ) mGy, DLP = ( 796.11 ) mGycm TECHNIQUE: Transaxial CT imaging of the brain was performed without administration of intravenous contrast material. Individualized dose optimization techniques were used for this CT. COMPARISON: MRI dated 11/02/2020 FINDINGS: There is no intra-/extra-axial fluid collection, mass effect, or midline shift. The gonzales/white matter junction is preserved. The basal cisterns are patent. Visualized paranasal sinuses and mastoid air cells are clear. The calvarium is intact. CT/Brain/Head without Contrast IMPRESSION: No acute intracranial finding. MRI may be obtained if clinically indicated. Electronically Signed: Chris Limon MD at 0:05 EDT Tel , Service support ,
--- NOTE | 2021-02-17 23:08 | EDS_ITS ---
HPI History of Present Illness Chief Complaint: Seizure Narrative Narrative: 30-year-old female presenting with breakthrough seizures today. Patient called her mother to states she did not feel well and she thought maybe she had a seizure. On arrival of her mother she states her daughter was post ictal. She was confused and agitated. Patient refused to take Ativan which she is prescribed for breakthrough seizure. She states that currently she feels well. Her mother states she still little bit confused. Patient's mother states that she is had her seizures under control for greater than a year. Patient has a port and states there was a previous clot in this and she is on Eliquis for this. She is also on Soliris for her myasthenia gravis. [facility] Medical History Anemia Chest pain Difficulty chewing Difficulty swallowing History of stress test Injury of head and neck Leg cramps Migraine headache Myasthenia gravis Non-smoker Normal echocardiogram (~05/18/16) Seizures Shortness of breath on exertion Home Medications zonisamide 200 mg PO 0800 12/23/17 [History Last Taken 11/01/20 08:00] lorazepam 1 mg PO DAILY PRN PRN 01/07/18 [History Last Taken 05/03/18] zonisamide 300 mg PO QHS 03/26/19 [History Last Taken 11/01/20 20:00] ropinirole 1 mg PO QHS 10/06/19 [History Last Taken 11/01/20 20:00] Mirena 20 mcg INTRAUTERINE UD 10/14/20 [History Last Taken Unknown] Soliris 1,200 mg IV .QOWEEK 10/14/20 [History Last Taken 10/29/20 08:00] lamotrigine 200 mg PO 0800 10/14/20 [History Last Taken 11/01/20 08:00] lamotrigine 250 mg PO QHS 10/14/20 [History Last Taken 11/01/20 20:00] oxcarbazepine 150 mg PO QHS 10/14/20 [History Last Taken 11/01/20 20:00] Eliquis 5 mg PO BID 11/02/20 [History Last Taken 11/01/20 20:00] ferrous sulfate [iron] 325 mg PO DAILY 11/02/20 [History Last Taken 11/01/20 08:00] Allergy/AdvReac Type Severity Reaction Status Date / Time levetiracetam [From Keppra] Allergy Other Verified 11/02/20 02:18 Penicillins Allergy Rash Verified 11/02/20 02:18 phenytoin [From Dilantin] Allergy PT UNSURE Verified 11/02/20 02:18 OF REACTION shellfish derived Allergy Other Verified 11/02/20 02:18 soy AdvReac NEEDS Verified 02/17/21 22:00 FOLLOW-UP Surgical History Hx of appendectomy Hx of thymectomy Hx of total hip arthroplasty Social History household members: spouse Smoking Status: Never smoker second hand exposure: Yes alcohol intake: never substance use type: does not use ROS ROS ED Constitutional Constitutional ED: Denies chills or fever(s) Eyes Eyes: Denies blurry vision or change in vision ENT ENT ED: Denies rhinorrhea or sore throat Cardiovascular Cardiovascular: Denies chest pain or palpitations Respiratory/Chest Respiratory/Chest: Denies cough or dyspnea Gastrointestinal Gastrointestinal: Denies abdominal pain, nausea or vomiting Genitourinary Genitourinary ED: Denies dysuria, hematuria or urinary frequency Musculoskeletal Musculoskeletal: Denies arthralgias, myalgias or neck pain Integumentary Denies rash Neurologic Neurologic: Reports headache(s); Denies paresthesias EXAM Physical Exam Const Vital Signs: 02/17/21 21:54 02/17/21 23:07 02/17/21 23:51 Temperature 98.4 F Temperature Source Temporal Pulse Rate 117 H 95 Respiratory Rate 18 16 Blood Pressure 140/76 H 113/71 Blood Pressure Mean 97 85 Pulse Ox 98 95 95 Oxygen Delivery Method Room Air Room Air Room Air Positive well nourished General Appearance ED: NAD; Negative for pallor HEENT Reports normocephalic and moist mucous membranes atraumatic Eyes PERRL and EOMs intact bilaterally Resp normal respiratory effort and clear to auscultation bilaterally Cardio regular rhythm Rate: tachycardic GI non-tender Palpation: soft Extremity normal to inspection; Negative for full ROM or normal capillary refill Neuro Neuro Narrative: Patient is conversing. She is not able to tell me the month of the year. Mother states she is confused more than normally after seizure. Sensorium / Orientation: awake and alert Skin General Skin Exam: Negative for jaundice or pallor Rashes: no rashes MDM MDM MDM Narrative Medical decision making narrative: After initial interview patient had philipp akthrough seizure. She was given Ativan. It appears to be [place]. Will obtain blood work and imaging. Patient is given IV fluids. I did check a CBC which was normal. She has no leukocytosis. Hemoglobin hematocrit are stable. On BMP her creatinine is normal. Potassium slightly low at 3.4. Sodium is normal. Magnesium is 1.9. Troponin was negative at 4. Serum test was negative. Chest x-ray on my interpretation shows no acute cardiopulmonary process and the radiologist does agree. EKG on my interpretation shows a normal sinus rhythm at a ventricular rate of 108 bpm without sign of ischemic change or dysrhythmia. CT of the brain is negative for acute intracranial process. I was able to speak with her neurologist and he did not want to change any medications but is willing to see her in the morning. I did explain to him that if she would have taken the Ativan she might of avoided future seizures but she was some reason for reluctant to take it. He did ask for levels of her oxycarbazine. and lamotrigine which she will follow. He did not feel the patient need to stay for this. Patient has not had any breakthrough seizures since she was given Ativan. She is discharged home into the care of her mother. Her mother will give Ativan as needed and return to the ER if there is any new or worsening symptoms Impression: 1. Breakthrough seizure Lab Data Attestation: I reviewed the patient's lab results. Labs: Laboratory Results - last 24 hr 02/17/21 02/17/21 02/17/21 21:54 21:54 21:54 WBC 8.9 RBC 5.00 Hgb 13.8 Hct 41.6 MCV 83.2 MCH 27.6 MCHC 33.2 RDW Std Deviation 38.4 RDW Coeff of Mariella 12.7 Plt Count 290 MPV 10.2 Immature Gran % (Auto) 0.100 Neut % (Auto) 84.5 H Lymph % (Auto) 10.7 L Cannon % (Auto) 4.0 Eos % (Auto) 0.2 Baso % (Auto) 0.5 Absolute Neuts (auto) 7.5 Absolute Lymphs (auto) 0.95 Nucleated RBC % 0 Sodium 141 Potassium 3.4 L Chloride 108 H Carbon Dioxide 21.0 Anion Gap 12 BUN 9 Creatinine 1.09 H Estim Creat Clear Calc 0.08 Est GFR (MDRD) Af Amer 75 Est GFR (MDRD) Non-Af 62 BUN/Creatinine Ratio 8.3 L Glucose 130 H Calcium 9.3 Magnesium 1.9 Troponin I High Sens 4 Serum , Qual NEGATIVE Radiography Diagnostic Testing: Clinical Impression(s) from Imaging Studies Brain CT 02/17/21 23:07 IMPRESSION: No acute intracranial finding. MRI may be obtained if clinically indicated. Electronically Signed: Chris Limon MD at 0:05 EDT Tel , Service support , Chest X-Ray 02/17/21 23:07 IMPRESSION: No acute cardiopulmonary process. Electronically Signed: Chris Limon MD at 0:09 EDT Tel , Service support , Discharge Plan Triage Chief Complaint: Seizure ED Provider: Kojo Lewis Dx/Rx/DC Orders Instructions: ED Seizure, Recurrent (Adult) Prescriptions: No Action zonisamide 100 capsule 200 mg PO 0800 RF: 0 lorazepam 1 MG tablet 1 mg PO DAILY PRN PRN (Reason: Seizure) RF: 0 zonisamide 100 MG capsule 300 mg PO QHS RF: 0 ropinirole 0.5 MG tablet 1 mg PO QHS RF: 0 oxcarbazepine 150 mg tablet 150 mg PO QHS RF: 0 Mirena 20 mcg/24 hours (6 yrs) 52 mg Intrauterine Device 20 mcg INTRAUTERINE UD RF: 0 Soliris 300 mg/30 mL Solution 1,200 mg IV .QOWEEK RF: 0 lamotrigine 200 mg tablet extended release 24hr 200 mg PO 0800 RF: 0 lamotrigine 250 mg tablet extended release 24hr 250 mg PO QHS RF: 0 ferrous sulfate [iron] 325 mg (65 mg iron) Tablet 325 mg PO DAILY RF: 0 Eliquis 5 mg tablet 5 mg PO BID RF: 0 Primary Care Provider: Soha Perdomo Referrals: Soha Perdomo MD [Primary Care Provider] - Disposition Disposition: Home, Self Care
[2021-02-17] MEDS: LORazepam 2 MG/ML Syringe 1 MG IV (23:16)
[2021-02-17 23:21] LABS: Absolute Lymphocyte Count 0.95 X10^3/uL (0.83-4.51); Absolute Neutrophil Count 7.5 X10^3/uL (2.0-7.7); Basophil# 0.04 X10^3/uL; Basophil% 0.5 % (0-1); Eosinophil# 0.02 X10^3/uL; Eosinophils% 0.2 % (0-5); Hematocrit 41.6 % (37-47); Hemoglobin 13.8 g/dL (12.0-15.0); Lymphocyte # 0.95 X10^3/ul (0.83-4.51); Lymphocyte % 10.7 % (19-41); Mean Corp Hgb Conc 33.2 g/dL (32-36); Mean Corpuscular Hgb 27.6 pg (27.0-32.0); Mean Corpuscular Volume 83.2 fL (81-99); Mean Platelet Vol. 10.2 fl (6.2-12.0); Monocyte# 0.35 X10^3/uL; NRBC Flagged by Analyzer 0 % (0-5); Neutrophil # 7.48 X10^3/uL (2.7-7.7); Neutrophil % 84.5 % (47-70); Platelet Count 290 K/mm3 (150-450); RBC Distribution Width CV 12.7 % (11.6-14.6); RBC Distribution Width SD 38.4 fl (35.1-43.9); White Blood Count 8.9 K/mm3 (4.4-11.0)
[2021-02-17 23:33] LABS: Anion Gap 12 (5-15); BUN 9 mg/dL (7-18); BUN/Creat Ratio 8.3 RATIO (10-20); Calcium,Total 9.3 mg/dL (8.5-10.1); Chloride 108 mmol/L (98-107); Creatinine, Serum 1.09 mg/dL (0.55-1.02); EST Glomerular Filtration Rate 62 mL/min (>60); Est Glom Filt Rate - Afr Amer 75 mL/min (>60); Estimated Creatinine Clearance 0.08 ml/min; Glucose 130 mg/dL (74-106); Magnesium 1.9 mg/dL (1.6-2.6); Potassium 3.4 mmol/L (3.5-5.1); Sodium Level 141 mmol/L (136-145); Troponin-I HS 4 pg/mL (3.0-54.0)
[2021-02-17] MEDS: 0.9% Normal Saline 1,000 ML 1000 ML IV (23:39)
[2021-02-17 23:51] VITALS: BP 113/71; PULSE 95; RESP 16; O2SAT 95
[2021-02-17 23:54] LABS: Internal QC Validated? YES +Cl - CLEAR BKGD; Pregnancy, Serum, hCG Quali. NEGATIVE Negative
[2021-02-18 02:21] VITALS: BP 120/71; PULSE 92; RESP 16; O2SAT 96
[2021-02-21 08:13] LABS: Lamotrigine (Lamictal) Level 4.3 ug/mL (2.0-20.0)
[2021-02-23 13:31] LABS: Trileptal-Oxcarbazepine < 1 ug/mL (10-35)
== END 2021-02-18 02:34 | disposition home or self-care (01) ==
PROVIDERS: Emergency Provider Student in an Organized Health Care Education/Training Program; PCP Internal Medicine
DX: G40.909 Epilepsy, unspecified, not intractable, without status epilepticus (principal); G70.00 Myasthenia gravis without (acute) exacerbation; Z79.899 Other long term (current) drug therapy
CPT/HCPCS: 70450; 71045; 80048; 82542; 83735; 84484; 84703; 85025; 93005; 96361; 96374; 99285; J7030; A4216

== ENCOUNTER 2021-05-23 13:31 | Outpatient (CLI) | payer MEDICAID, SELFPAY ==
[2021-05-23 14:52] LABS: ALB/GLOB Ratio 1.1 RATIO (0.9-2.4); AST(SGOT) 15 U/L (15-37); Alanine Aminotransfer ALT/SGPT 28 U/L (13-56); Albumin, Serum 3.9 g/dL (3.2-5.0); Alkaline Phosphatase 110 U/L (45-117); Anion Gap 4 (5-15); BUN 11 mg/dL (7-18); BUN/Creat Ratio 12.7 RATIO (10-20); CPK Total, Creatine Kinase 62 U/L (26-192); Calcium,Total 9.1 mg/dL (8.5-10.1); Chloride 115 mmol/L (98-107); Creatinine, Serum 0.87 mg/dL (0.55-1.02); EST Glomerular Filtration Rate 80 mL/min (>60); Est Glom Filt Rate - Afr Amer 97 mL/min (>60); Globulin 3.5 g/dL (2.2-4.2); Glucose 92 mg/dL (74-106); Protein, Total 7.4 g/dL (6.4-8.2); Sodium Level 141 mmol/L (136-145)
== END 2021-05-23 23:59 | disposition short-term general hospital (02) ==
PROVIDERS: PCP Internal Medicine; Referring Provider Psychiatry & Neurology Neurology; Visit Provider Psychiatry & Neurology Neurology
DX: G40.909 Epilepsy, unspecified, not intractable, without status epilepticus (principal)
CPT/HCPCS: 36415; 80053; 82550

== ENCOUNTER 2021-06-13 14:23 | Outpatient (CLI) | payer MEDICAID, SELFPAY ==
[2021-06-13 14:31] LABS: Bacteria 0 SEEN /hpf (None Seen); Mucous, Urine 0 SEEN /hpf (<or=2+)
[2021-06-13 15:58] LABS: Color, Urine Yellow (Yellow); Glucose, Dipstick Normal (Normal); Ketone-Dipstick Negative (Negative); Leukocyte Esterase-Dipstick 100 /ul (Negative); Nitrite-Dipstick Negative (Negative); Occult Blood-Urine 250 /ul (Negative); Protein-Dipstick 15 mg/dl (Negative); Urine Bilirubin Dipstick Negative (Negative); Urine Clarity Sl. Cloudy (Clear); Urine Urobilinogen Normal (Normal)
[2021-06-13 16:07] LABS: Absolute Lymphocyte Count 1.76 X10^3/uL (0.83-4.51); Absolute Neutrophil Count 5.3 X10^3/uL (2.0-7.7); Basophil# 0.04 X10^3/uL; Basophil% 0.5 % (0-1); Eosinophil# 0.11 X10^3/uL; Eosinophils% 1.4 % (0-5); Hematocrit 39.5 % (37-47); Hemoglobin 13.1 g/dL (12.0-15.0); Lymphocyte # 1.76 X10^3/ul (0.83-4.51); Lymphocyte % 22.2 % (19-41); Mean Corp Hgb Conc 33.2 g/dL (32-36); Mean Corpuscular Hgb 28.2 pg (27.0-32.0); Mean Corpuscular Volume 85.1 fL (81-99); Mean Platelet Vol. 9.7 fl (6.2-12.0); Monocyte# 0.67 X10^3/uL; Monocyte% 8.4 % (0-10); NRBC Flagged by Analyzer 0 % (0-5); Neutrophil # 5.33 X10^3/uL (2.7-7.7); Neutrophil % 67.2 % (47-70); Platelet Count 283 K/mm3 (150-450); RBC Distribution Width CV 14.5 % (11.6-14.6); RBC Distribution Width SD 44.9 fl (35.1-43.9); Red Blood Count 4.64 M/mm3 (4.2-5.4); White Blood Count 7.9 K/mm3 (4.4-11.0)
[2021-06-13 16:13] LABS: White Blood Cells 10-25 SEEN /hpf (0-5)
[2021-06-13 16:14] LABS: Red Blood Cells-Urine 10-25 SEEN /hpf (0-5); Squamous Epithelial Cells - UA 0-5 SEEN /hpf (5-10)
== END 2021-06-13 23:59 | disposition home or self-care (01) ==
LOC: LAB 14:28
PROVIDERS: PCP Internal Medicine; Visit Provider Psychiatry & Neurology Neurology
DX: N39.0 Urinary tract infection, site not specified (principal); G70.00 Myasthenia gravis without (acute) exacerbation
CPT/HCPCS: 36415; 81001; 85025; 87086; 87088

== ENCOUNTER 2021-06-18 12:26 | Outpatient (CLI) | payer MEDICAID, SELFPAY ==
[2021-06-20 18:35] LABS: Complement CH50 < 16 U/mL (>41)
== END 2021-06-18 23:59 | disposition home or self-care (01) ==
LOC: LAB 12:29
PROVIDERS: PCP Internal Medicine; Visit Provider Psychiatry & Neurology Neurology
DX: G70.00 Myasthenia gravis without (acute) exacerbation (principal)
CPT/HCPCS: 36415; 86162

== ENCOUNTER 2021-08-06 10:54 | Outpatient (CLI) | payer MEDICAID, SELFPAY ==
[2021-08-06 11:34] LABS: Absolute Neutrophil Count 3.2 X10^3/uL (2.0-7.7); Basophil# 0.04 X10^3/uL; Basophil% 0.7 % (0-1); Eosinophil# 0.13 X10^3/uL; Eosinophils% 2.4 % (0-5); Hematocrit 38.5 % (37-47); Hemoglobin 12.8 g/dL (12.0-15.0); Lymphocyte % 29.8 % (19-41); Mean Corp Hgb Conc 33.2 g/dL (32-36); Mean Corpuscular Hgb 28.5 pg (27.0-32.0); Mean Corpuscular Volume 85.7 fL (81-99); Mean Platelet Vol. 9.3 fl (6.2-12.0); Monocyte# 0.37 X10^3/uL; Monocyte% 6.9 % (0-10); NRBC Flagged by Analyzer 0 % (0-5); Neutrophil # 3.22 X10^3/uL (2.7-7.7); Platelet Count 297 K/mm3 (150-450); RBC Distribution Width CV 13.8 % (11.6-14.6); RBC Distribution Width SD 43.3 fl (35.1-43.9); Red Blood Count 4.49 M/mm3 (4.2-5.4); White Blood Count 5.4 K/mm3 (4.4-11.0)
[2021-08-06 11:57] LABS: ALB/GLOB Ratio 1.1 RATIO (0.9-2.4); AST(SGOT) 21 U/L (15-37); Alanine Aminotransfer ALT/SGPT 26 U/L (13-56); Albumin, Serum 3.9 g/dL (3.2-5.0); Alkaline Phosphatase 111 U/L (45-117); Anion Gap 3 (5-15); BUN 12 mg/dL (7-18); BUN/Creat Ratio 13.8 RATIO (10-20); Calcium,Total 9.1 mg/dL (8.5-10.1); Chloride 114 mmol/L (98-107); Creatinine, Serum 0.87 mg/dL (0.55-1.02); EST Glomerular Filtration Rate 80 mL/min (>60); Est Glom Filt Rate - Afr Amer 97 mL/min (>60); Globulin 3.7 g/dL (2.2-4.2); Glucose 92 mg/dL (74-106); Potassium 3.9 mmol/L (3.5-5.1); Protein, Total 7.6 g/dL (6.4-8.2); Sodium Level 139 mmol/L (136-145)
== END 2021-08-06 23:59 | disposition home or self-care (01) ==
LOC: LAB 10:56
PROVIDERS: PCP Nurse Practitioner; Visit Provider Psychiatry & Neurology Neurology
DX: G70.00 Myasthenia gravis without (acute) exacerbation (principal)
CPT/HCPCS: 36415; 80053; 85025

== ENCOUNTER 2021-08-15 10:32 | Emergency (ER) | payer MEDICAID, SELFPAY ==
[2021-08-15 10:34] VITALS: BP 111/99; PULSE 104; RESP 16; TEMP 36.6; O2SAT 96; BMI 27.3
[2021-08-15 10:39] VITALS: BP 111/99; PULSE 104; RESP 16; TEMP 36.6; O2SAT 96
--- NOTE | 2021-08-15 10:50 | RAD_ITS ---
STUDY: X-RAY CHEST REASON FOR EXAM: Female, 31 years old. Chest pain. TECHNIQUE: PA and lateral views of the chest. COMPARISON: Comparison is made with prior examination dated 02/17/2021. FINDINGS: A right-sided mike catheter seen with the tip in the midportion of the superior vena cava. The lungs are clear and expanded. There is no demonstrated pleural abnormality. Normal size heart. Normal mediastinum and shima. Normal visualized pulmonary arteries. Normal visualized aortic arch and descending thoracic aorta. Normal visualized thoracic spine. Normal visualized ribs, clavicles, and shoulders. There is no demonstrated abnormality of the visualized soft tissue structures of the upper abdomen. RAD/Chest 1 View (Portable) IMPRESSION: Normal x-ray examination of the chest. Electronically Signed: Mitchel Conrad MD at 11:15 EDT ,
--- NOTE | 2021-08-15 10:54 | EX.ED.DYSGE1 ---
HPI History of Present Illness Chief Complaint: Other, Pain/Inj Informant: patient Narrative Narrative: 31-year-old female states that she normally does not feel her Mediport in her chest/neck but is feeling a catch today. She states it feels more swollen. She reports that she is on Eliquis due to prior clot at the site. The port was placed approximately [address] Malcolm. She states that she was advised to come to the emergency room today. She has paresthesias in the right arm [facility] Medical History Anemia Chest pain Difficulty chewing Difficulty swallowing History of stress test Injury of head and neck Leg cramps Migraine headache Myasthenia gravis Non-smoker Normal echocardiogram (~05/18/16) Seizures Shortness of breath on exertion Home Medications zonisamide 200 mg PO 0800 12/23/17 [History Last Taken 11/01/20 08:00] lorazepam 1 mg PO DAILY PRN PRN 01/07/18 [History Last Taken 05/03/18] zonisamide 300 mg PO QHS 03/26/19 [History Last Taken 11/01/20 20:00] ropinirole 1 mg PO QHS 10/06/19 [History Last Taken 11/01/20 20:00] Mirena 20 mcg INTRAUTERINE UD 10/14/20 [History Last Taken Unknown] Soliris 1,200 mg IV .QOWEEK 10/14/20 [History Last Taken 10/29/20 08:00] lamotrigine 200 mg PO 0800 10/14/20 [History Last Taken 11/01/20 08:00] lamotrigine 250 mg PO QHS 10/14/20 [History Last Taken 11/01/20 20:00] oxcarbazepine 150 mg PO QHS 10/14/20 [History Last Taken 11/01/20 20:00] Eliquis 5 mg PO BID 11/02/20 [History Last Taken 11/01/20 20:00] ferrous sulfate [iron] 325 mg PO DAILY 11/02/20 [History Last Taken 11/01/20 08:00] Allergy/AdvReac Type Severity Reaction Status Date / Time levetiracetam [From [facility]] Allergy Other Verified 08/15/21 10:34 Penicillins Allergy Rash Verified 08/15/21 10:34 phenytoin [From Dilantin] Allergy PT UNSURE Verified 08/15/21 10:34 OF REACTION shellfish derived Allergy Other Verified 08/15/21 10:34 soy AdvReac NEEDS Verified 08/15/21 10:34 FOLLOW-UP Surgical History Hx of appendectomy Hx of thymectomy Hx of total hip arthroplasty Social History household members: spouse Smoking Status: Never smoker second hand exposure: Yes alcohol intake: never substance use type: does not use ROS ROS ED Constitutional Constitutional ED: Denies chills, fever(s), sweats or weight loss Eyes Eyes: Denies change in vision or diplopia ENT ENT ED: Denies ear pain, rhinorrhea or sore throat Cardiovascular Cardiovascular: Reports chest pain; Denies orthopnea, palpitations or racing heartbeat Respiratory/Chest Respiratory/Chest: Denies cough, dyspnea or orthopnea Gastrointestinal Gastrointestinal: Denies abdominal pain, diarrhea, nausea or vomiting Genitourinary Genitourinary ED: Denies dysuria, hematuria or urinary frequency Musculoskeletal Musculoskeletal: Denies arthralgias or myalgias Integumentary Denies abscess or rash Neurologic Neurologic: Denies headache(s) or weakness Psychiatric Psychiatric: Denies anxiety, depression, suicidal ideation or suicidal thoughts Endocrine Endocrinology: Denies polydipsia, polyphagia or polyuria Allergic/Immunologic Allergic/Immunologic ED: Denies mouth swelling, tongue swelling or urticaria EXAM Physical Exam Const Vital Signs: 08/15/21 10:34 08/15/21 10:39 08/15/21 11:17 Temperature 97.8 F 97.8 F Temperature Source Temporal Temporal Pulse Rate 104 H 104 H Respiratory Rate 16 16 Respiratory Effort Normal Non-Labored Respiratory Pattern Normal Blood Pressure 111/99 H 111/99 H Blood Pressure Mean 103 103 Pulse Ox 96 96 Oxygen Delivery Method Room Air Room Air Positive well nourished and well developed General Appearance ED: well developed HEENT Reports normocephalic, head/scalp atraumatic and moist mucous membranes trauma Eyes PERRL and EOMs intact bilaterally Neck no lymphadenopathy, supple and no JVD Chest Wall Chest Narrative: There is a palpable port underneath the skin. I do not appreciate significant swelling or redness. The arm is not swollen. There does not appear to be any JVD. Resp normal respiratory effort and clear to auscultation bilaterally Cardio regular rate, regular rhythm and no murmurs GI normal to inspection, nondistended, normoactive bowel sounds and non-tender Palpation: soft Back/Spine no CVA tenderness and normal ROM Extremity normal to inspection General Extremety ED: Negative for edema General Extremity: Negative for edema Neuro oriented x3 and CN's II-XII intact bilaterally Sensorium / Orientation: alert Motor Exam: strength 5/5 throughout Psych mental status grossly normal Mood & Affect: Negative for depressed or tearful Skin no rashes or lesions noted and no wounds MDM MDM MDM Narrative Medical decision making narrative: Interpretation of the chest x-ray is no acute process. Report does not seem to have migrated when compared to chest x-ray dated 17 February 2021. Duplex ultrasound does not show a subclavian or internal jugular clot. Does not appear to be any clot in the arm. I do not see evidence of port infection. I spoke with her surgeon Dr. Malcolm who notes that she has followed up with vascular surgery due to the clot complication. He recommends following up with them. Patient will give them a call and arrange follow-up Radiography Diagnostic Testing: Clinical Impression(s) from Imaging Studies Chest X-Ray 08/15/21 10:50 IMPRESSION: Normal x-ray examination of the chest. Electronically Signed: Mitchel Conrad MD at 11:15 EDT , Discharge Plan Triage Chief Complaint: Other, Pain/Inj ED Provider: Mark Lopez Dx/Rx/DC Orders Clinical Impression: Chest pain, Vascular port complication Prescriptions: No Action zonisamide 100 capsule 200 mg PO 0800 RF: 0 lorazepam 1 MG tablet 1 mg PO DAILY PRN PRN (Reason: Seizure) RF: 0 zonisamide 100 MG capsule 300 mg PO QHS RF: 0 ropinirole 0.5 MG tablet 1 mg PO QHS RF: 0 oxcarbazepine 150 mg tablet 150 mg PO QHS RF: 0 Mirena 20 mcg/24 hours (6 yrs) 52 mg Intrauterine Device 20 mcg INTRAUTERINE UD RF: 0 Soliris 300 mg/30 mL Solution 1,200 mg IV .QOWEEK RF: 0 lamotrigine 200 mg tablet extended release 24hr 200 mg PO 0800 RF: 0 lamotrigine 250 mg tablet extended release 24hr 250 mg PO QHS RF: 0 ferrous sulfate [iron] 325 mg (65 mg iron) Tablet 325 mg PO DAILY RF: 0 Eliquis 5 mg tablet 5 mg PO BID RF: 0 Primary Care Provider: Macy Akins NP Referrals: Macy Akins NP, [facility] [Primary Care Provider] - Activity Restrictions/Additional Instructions: It is recommended that you follow-up with your vascular surgeon Disposition Disposition: Home, Self Care
--- NOTE | 2021-08-15 11:13 | VDUE_ITS ---
Reason For Study: Chest pain Right Proximal Right jugular vein is spontaneous, widely patent, phasic, with no intraluminal echogenicity noted. Right subclavian vein is spontaneous, widely patent, phasic, with no intraluminal echogenicity noted. Right Lower Arm Right radial vein is compressible. Right ulnar vein is compressible. Right Arm Right axillary vein is spontaneous, patent, phasic, competent, compressible and demonstrates augmentation. Right brachial vein is compressible. Right cephalic vein is compressible. Right basilic vein is compressible. Patient Safety Preliminary report to Dr. Lopez. VL/Venous Duplex US, Unilateral Interpretation Summary No evidence for acute deep venous thrombosis[right] upper extremity with patent and compressible cephalic and basilic veins. Ordering Physician: Mark Lopez Referring Physician: Macy Akins Performed By: Ayla Moulton RVT ?
[2021-08-15 11:52] VITALS: PULSE 108; RESP 17; O2SAT 98
== END 2021-08-15 11:53 | disposition home or self-care (01) ==
LOC: ED 11:50
PROVIDERS: Emergency Provider Emergency Medicine; PCP Nurse Practitioner; Visit Provider Emergency Medicine
DX: T82.848A Pain due to vascular prosthetic devices, implants and grafts, initial encounter (principal); Y82.8 Other medical devices associated with adverse incidents; Z86.718 Personal history of other venous thrombosis and embolism; Z79.01 Long term (current) use of anticoagulants; R20.2 Paresthesia of skin; Z79.899 Other long term (current) drug therapy
CPT/HCPCS: 71045; 93971; 99282

== ENCOUNTER → 2021-09-16 | Outpatient (CLI) | payer MEDICAID, SELFPAY ==
[2021-09-16 13:09] LABS: Erythrocyte Sedimentation Rate 11 mm/hr (0-30)
[2021-09-16 13:26] LABS: Vitamin B12 282 pg/mL (211-911)
[2021-09-16 13:27] LABS: CPK Total, Creatine Kinase 69 U/L (26-192); CRP < 2.90 mg/L (0.0-3.0)
[2021-09-18 14:09] LABS: PROELU- Albumin, Urine 30.1 % (.); PROELU- Alpha-1-Globulin,Ur 3.2 % (.); PROELU- Alpha-2-Globulin,Ur 10.5 % (.); PROELU- Beta Globulin, Ur 15.9 % (.); PROELU- Gamma Globulin, Ur 40.3 % (.); Total Protein, Ur 7.4 mg/dL (Not Estab.)
== END | disposition home or self-care (01) ==
LOC: LAB 12:34
PROVIDERS: PCP Nurse Practitioner; Referring Provider Psychiatry & Neurology Neurology; Visit Provider Psychiatry & Neurology Neurology
DX: G70.00 Myasthenia gravis without (acute) exacerbation (principal); W19.XXXA Unspecified fall, initial encounter
CPT/HCPCS: 36415; 82140; 82550; 82607; 84166; 85652; 86140

== ENCOUNTER 2021-10-09 11:00 | Outpatient (RCR) | payer MEDICAID, MEDICARE, SELFPAY ==
--- NOTE | 2021-10-01 14:53 | HP.PTEVAL ---
Patient's Visit Information ADARSH FLANAGAN is a 31 year old F referred to Physical Therapy by Dr. Gerald Gilmore MD with a diagnosis of falls , debility, myasthenia gravis.. Date of Evaluation: 10/01/21 Physical Therapist: Jhon Ornelas, DPT, OCS, CSCS - Visit Plan Frequency: 3x /Week Duration: 4-6 Weeks Plan: 3x/week for 3-6 weeks for. 1. core strenght. 2. hip and LE strength. 3. postural strength. Work to home I iwth 5 and 10 # db, bodyweight and bands with pics please. Monitor tolerance to workout. - Subjective Myasthenia Gravis is what I have. Legs and arms have gotten weak and given out in last couple weeks. Last week mom had to take care of her and lift her off the toilet. Today she is walking fine. Just woke up fine a couple days ago. has had this since 2018. Now cannot do snowboarding or running like she used to do. Cannot do any of hobbies anymore. wants to be able to walk a mile without concern or problems. Is very weak. Legs will shake if she stands too long. See3s Dr. Gilmore and takes solaris every two weeks. Just took some yesterday. Has done that for a couple years. Got MRI of neck yesterday to see if problems in neck. Labs came back normal. Sees in two weeks. Gets pain when she is flared up her arms and legs hurt in the muscles. Sleeping : Ok sometimes but last week was bad as she could not turn over when in pain. Cannot grasp a sheet. 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 Not worked in a year. 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 Putting hair up wears arms out. Seizures: since 11(maybe bad concussion), on meds since 11. Lives alone but stays with parents when in flare. Has 3 steps at her house which are fatiguing. Exercises; wants to run but legs don't do that anymore. I walk [employer] or [employer] but cannot make it around sometimes. Yoga daily. - Objective Walks I into PT easily. Trasnfer chair with UE I today. Bed transfers show weakness in trunk and LE movements. Steps require UE assist but is able reciprocally. UE AROM is WFL and strength is 4- in shoulders, 4 in elbows and 3 in hands with difficulty with motor control in hands. Lumbar and cervical AROM WFL and without pain today. LE flexibility is hypermobile except gastroc which is min tight at 2 degrees DF. Hips are weak at 3+/5 in abd, flexion and extension, knees at 4/5 in flexion and extension. Ankle strength 4+/5. Core strength in abs 3- and back extensors 3. hypereflexic with clonus in patella and achilles. Sensation LE WNL to gross light touch. - Balance/Special Test Scores Functional Gait Assessment Score: 29 % Disability: 3.3400 Lower Extremity Functional Score: 31 30 Second Chair Rise Test Seconds: 14 - Goals Goal 1:: I appropriate home based ex with db and bands for core and LE and postural strength. Goal Time Frame: 4-6 Weeks Goal 2:: 18 30 sec sit to stand test. Goal Time Frame: 4-6 Weeks Goal 3:: pt feel 505 better in overall mobility without myasthenia gravis flare. Goal Time Frame: 4-6 Weeks - Rehabilitation Potential Physical Therapy Diagnosis: weakness and difficulty with activity. Rehabilitation Potential: Fair - Anticipated Interventions Patient/Client Instruction: Educate patient on: Condition, Plan of Care For the Purpose of:: To improve muscle performance and motor function, To improve ability of physical actions for home/community/work/leisure, To improve gait and locomotor functions Therapeutic Exercise to Include: Strength training, Gait and locomotor training For the Purpose of:: To increase ROM, To improve muscle performance and motor function, To increase tolerance to activity/condition/position Thank you for the opportunity to evaluate your patient. For Medicare and Medicare HMO plans, please review the plan of care and approve it. It will need to be FAXED BACK to us at [phone] for Medicare purposes. For Medicare only, by signing this I certify the plan of care. Please let me know if there are questions or concerns regarding this plan of care. Physician Signature: Date:
--- NOTE | 2021-12-05 07:13 | HP.PT.NRP ---
ADARSH FLANAGAN was seen in my office for initial evaluation on 10/01/21. The following Plan of Care was established for this patient: Initial Frequency: 3x /Week Initial Duration: 4-6 Weeks Patient/Client Instruction: Educate patient on: Condition, Plan of Care For the Purpose of:: To improve muscle performance and motor function, To improve ability of physical actions for home/community/work/leisure, To improve gait and locomotor functions Therapeutic Exercise to Include: Strength training, Gait and locomotor training For the Purpose of:: To increase ROM, To improve muscle performance and motor function, To increase tolerance to activity/condition/position This patient was last seen in our office 10/09/21. Pertinent comments regarding their Physical therapy will appear below: Pt seen for two visits and neglected to schedule or attend any further visits. at this point, it has been nearly two months and I will discontinue from my care due to nonattendance. At this point I will be discontinuing this patient from physical therapy. I would be happy to see this patient again in the future if found appropriate by the physician. Thank you! Jhon Ornleas, DPT, OCS, CSCS Balance/Gait/Functional tests - Balance/Special Test Scores Functional Gait Assessment Score: 29 % Disability: 3.3400 Lower Extremity Functional Score: 31 Tug Test: <10 sec.=free mobile 30 Second Chair Rise Test Seconds: 14
== END 2021-10-09 19:00 | disposition home or self-care (01) ==
LOC: PT 11:00
PROVIDERS: PCP Nurse Practitioner; Referring Provider Psychiatry & Neurology Neurology; Visit Provider Psychiatry & Neurology Neurology
DX: R53.81 Other malaise (principal); W19.XXXD Unspecified fall, subsequent encounter; R29.6 Repeated falls
CPT/HCPCS: 97110; 97162

== ENCOUNTER 2021-10-17 09:44 | Day surgery (SDC) | payer MEDICAID, SELFPAY ==
[2021-10-17] VITALS (8 sets, daily range): BP systolic 88–109; BP diastolic 63–76; PULSE 67–90; RESP 16–18; TEMP 36.6–37; O2SAT 93–98; BMI 28.2
--- NOTE | 2021-10-17 | IMM_PTH ---
PATIENT: ADARSH FLANAGAN LOC: [facility] [place] U#:[id number] AGE/SX: 31/F ROOM: RE10/17/[address]: Dr. Sarah Pop DO : 1990 BED: DIS: 10/17/2021 SPEC #: [id number] RECD: 10/20/21 11:44 STATUS: JORGE REQ #: [id number] JASPREET: 10/17/21 00:[address]: Sarah Pop DEPT: IMMUNOHISTOCHEMISTRY RECD BY: Bethany Johansen ENTERED: 10/20/21 11:45 SP TYPE: IMMUNO OTHR DR: Dr. Soha Perdomo MD Tissues: A - Uterine cervix, NOS B - Uterine cervix, NOS Procedures: p16 (initial) KI-67 (add) PHYSICIAN & INSTITUTION [place] [id number] SPECIMEN INFORMATION: Tissue Source: A ? Cervix, anterior, cone biopsy, B - Cervix, posterior, cone biopsy Clinical Info: Positive ECC, LLOYD II Specimen Number: [id number] A1 & B3 CPT code: 11864 x2, 71083 x2 METHODOLOGY: Deparaffinized sections of prefer/formalin-fixed tissue or PAP/DQ stained slides are incubated with monoclonal/polyclonal antibodies/oligonucleotide probes. Localization is made via biotin free immunoperoxidase method. Appropriate controls are performed and reacted as expected. Results on target cell population are indicated in the following table: RESULTS: ANTIBODY / CLONE RESULT Block A1 P16 (E6H4) positive, focal and patchy Ki-67 (30-9) positive, low Block B3 P16 (E6H4) positive, focal block staining Ki-67 (30-9) positive, high These tests were developed and their performance characteristics determined by [facility]. They may not have been cleared or approved by the U.S. Food and Drug Administration. The FDA has determined that such clearance or approval is not necessary. The above immunohistochemical/dualISH markers are ordered and reviewed by the Pathologist. INTERPRETATION: A. Cervix, anterior, cone biopsy: Focal changes suspicious for HPV cytopathic effects. B. Cervix, posterior, cone biopsy: Focal moderate to severe squamous dysplasia. SJ:[place] 10/21/2021 Case has been reviewed in consultation with Dr. Gillette who concurs with the above diagnosis. IDC:[id number]
[2021-10-17] MEDS: Lactated Ringers 1,000 ML 15 ML IV (10:41)
[2021-10-17 10:42] LABS: Hematocrit 36.2 % (37-47); Hemoglobin 11.9 g/dL (12.0-15.0); Mean Corp Hgb Conc 32.9 g/dL (32-36); Mean Corpuscular Volume 85.2 fL (81-99); Mean Platelet Vol. 9.3 fl (6.2-12.0); Platelet Count 311 K/mm3 (150-450); RBC Distribution Width SD 43.1 fl (35.1-43.9); Red Blood Count 4.25 M/mm3 (4.2-5.4); White Blood Count 6.8 K/mm3 (4.4-11.0)
[2021-10-17 10:47] LABS: Internal QC Validated? YES +Cl - CLEAR BKGD; Pregnancy, Urine Negative Negative
--- NOTE | 2021-10-17 11:21 | DCINST_ITS ---
Discharge Instructions Diet Discharge Diet: No restrictions Activity Discharge Activity: [address] Drive (once you are at least 24 hours out from surgery) Return to work on:: 10/20/21 May resume sexual activity in: 4 weeks (No tampons, intercourse, hot tubs, baths, or pools for one month) Weight Bearing Status: Weight bearing as tolerated Dressing / Incision Call your doctor if you observe: Fever of 101 or Higher, Coldness, Increased Pain, Numbness or Tingling, Change in Color, Inability to urinate, Inability to have a bowel movement, Using more than 1 pad per hour, Shortness of breath, Dizziness, Fainting spells, Swelling in the ankles, Chest pain, Increased palpitations (irregular heartbeat), Calf discomfort and Uncontrolled pain Follow Up Care Please Follow Up With: Sarah Pop DO When: 1 week post op check and discussion of pathology 4-6 weeks for IUD check Test Results: Test results from this visit will be discussed in further detail at your follow- up appointment, if applicable. Discharge Plan Admission Primary Reason for Your Visit: surgery Attending Provider: Sarah Pop Primary Care Provider: Soha Perdomo Discharge Orders/Prescriptions Prescriptions: Continued zonisamide 100 capsule 200 mg PO 0800 Label Comments: seizures lorazepam 1 MG tablet 1 mg PO DAILY PRN PRN (Reason: Seizure) Label Comments: seizures zonisamide 100 MG capsule 300 mg PO QHS Label Comments: seizures ropinirole 0.5 MG tablet 1 mg PO QHS oxcarbazepine 150 mg tablet 150 mg PO QHS Mirena 20 mcg/24 hours (6 yrs) 52 mg Intrauterine Device 20 mcg INTRAUTERINE UD Label Comments: already placed Soliris 300 mg/30 mL Solution 1,200 mg IV .QOWEEK lamotrigine 200 mg tablet extended release 24hr 100 mg PO 0800 Label Comments: take 1 tablet by mouth once daily lamotrigine 250 mg tablet extended release 24hr 250 mg PO QHS Label Comments: take 1 tablet by mouth once daily at bedtime ferrous sulfate [iron] 325 mg (65 mg iron) Tablet 325 mg PO DAILY Eliquis 5 mg tablet 5 mg PO BID Label Comments: TAKE 2 TABLETS BY MOUTH TWICE DAILY FOR 7 DAYS, THEN TAKE 1 TABLET TWICE DAILY escitalopram oxalate [Lexapro] 10 mg Tablet 10 mg PO QHS Referrals / Follow Up: Soha Perdomo MD [Primary Care Provider] - Disposition Disposition (needs filled in before D/C Order can be placed): Home, Self Care
--- NOTE | 2021-10-17 11:30 | CONE_PTH ---
PATIENT: ADARSH FLANAGAN LOC: [facility] [place] U#:[id number] AGE/SX: 31/F ROOM: RE10/17/[address]: Dr. Sarah Pop DO : 1990 BED: DIS: 10/17/2021 SPEC #: [id number] RECD: 10/17/21 13:11 STATUS: JORGE RELore #: [id number] JASPREET: 10/17/21 11:[address]: Sarah Pop DEPT: SURGICAL PATHOLOGY RECD BY: Chantel Lott ENTERED: 10/17/21 13:27 SP TYPE: Leep Alli THOMPSON DR: Dr. Soha Perdomo MD Tissues: A - UTERINE CERVIX LEEP B - UTERINE CERVIX LEEP C - Endocervical Procedures: Surgery Specimen Level IV Surgery Specimen Level V HEADER OPERATION: D & C, cervical cold knife conization, endocervical curettage, IUD PRE-OP DIAGNOSIS: Positive ECC, LLOYD II TISSUE SUBMITTED: A ? Cervical biopsy, anterior, B ? Cervical biopsy, posterior, C ? Endocervical curettage MICROSCOPIC DIAGNOSIS A. Cervix, anterior, cone biopsy: Focal changes suspicious for HPV cytopathic effects. Chronic inflammation and squamous metaplasia. Resection margin are free of dysplastic changes. See comment. B. Cervix, posterior, cone biopsy: Moderate to severe squamous dysplasia. Chronic inflammation. See comment. C. Endocervical curettings: Fragments of benign endocervical mucosa and epithelium, negative for dysplasia. SJ:lubna 10/20/2021 COMMENT A. Immunohistochemistry ([id number]) for surrogate HPV marker (p16) supports the above diagnosis. B. Focal moderate to severe dysplastic changes are noted at the lateral endocervical subepithelial tissue margin and moderate to severe dysplastic changes are less than 0.1 cm away endocervical epithelial margin. Immunohistochemistry ([id number]) for surrogate HPV marker (p16) supports the above diagnosis. Clinical correlation and appropriate follow up are necessary. Case has been reviewed in consultation with Dr. Gillette who concurs with the above diagnosis. IDC:AM MICROSCOPIC DESCRIPTION Slides are reviewed. GROSS DESCRIPTION A - Received in fixative is one container labeled with the patient's name and designated cervical biopsy, anterior. The specimen consists of a denny, indurated piece of LEEP conization measuring 2.5 x 1.5 cm and up to 1 cm in thickness. The specimen is not oriented. No mucosal lesion is identified. Nonmucosal surface is inked black. The specimen serially sectioned and submitted entirely in three cassettes. B - Received in fixative is one container labeled with the patient's name and designated cervical biopsy, posterior. The specimen consists of a denny, indurated piece of tissue consistent with LEEP conization measuring 2.5 x 1 x 1 cm. No mucosal lesion is identified. Nonmucosal surface is inked black. The specimen serially sectioned and submitted entirely in three cassettes. C - Received in fixative is one container labeled with the patient's name and designated endocervical curettings. The specimen consists of a few fragments of hemorrhagic mucoid tissue measuring in aggregate 0.5 x 0.5 x <0.1 cm. The specimen is totally submitted in one cassette. / MONA:lubna 10/17/2021 TC: CPT: 10350, 89443 x2
[2021-10-17] MEDS: Lidocaine 1% /Epi 1:100 (20ml) 20 ML Vial (12:02)
[2021-10-17] MEDS: Iodine/Potassium Iodide 14ML Bottle 1 DRP TOPICAL (12:08)
[2021-10-17] MEDS: FERRIC SUBSULFATE 8 GM SOLN (12:19)
--- NOTE | 2021-10-17 12:25 | PCM.OPRPT ---
Problems Associated Problem List Diagnoses (1) LLOYD II (cervical intraepithelial neoplasia II): Report of Operation Date of Procedure: 10/17/21 Pre-Operative Diagnosis: CIN2, positive ECC, menorrhagia with desire for progesterone IUD Post-Operative Diagnosis: As above Surgery/Procedure Performed:: Cervical CKC with ECC, Paragard IUD removal, Mirena IUD placement Description of Surgical Findings:: Minimal descent of cervix and uterus. Uterus retroverted and sounded to 7.5 cm. No significant changes noted with Lugol solution. Surgeon: Sarah Pop embosser apprentice: None Type of Anesthesia: MAC Special Medications: None Specimen's removed: Cervical biopsy - anterior lip and posterior lip Endocervical curetting Drains: None Estimated Blood Loss (mL): < 50 cc Fluids Replaced: 700 cc Description of Procedure: Patient was taken back to the operating room where MAC anesthesia was found to be adequate. She was prepped and draped in the dorsal lithotomy position using yellowfin stirrups. A weighted speculum was placed in the vagina to expose the cervix. The anterior lip of the cervix was grasped with a single-tooth tenaculum. The IUD strings were grasped with a ring forcep, and using gentle traction the Paragard IUD was removed easily and intact. Using 0 Vicryl stay sutures were placed at the 3 o'clock and 9 o'clock positions for hemostasis. Lugol solution was placed over the cervix. 10 cc of 1% lidocaine with epinephrine was injected into cervix. Using an 11 blade a circumferential incision was made in the cervix. Next curved Palomares scissors were used to remove the cone biopsy. The cone biopsy was removed in 2 pieces, the anterior lip and the posterior lip. The cone biopsy was sent to pathology for review. An endocervical curetting was performed and this was sent to pathology for review. The uterus was sounded to 7.5 cm in length. The Mirena device was set, and Mirena IUD was placed in usual fashion in the uterus. The IUD strings were trimmed to 2 cm in length. The cervical bed was cauterized using a roller blade. Monsel solution was placed. The stay sutures were trimmed. Bleeding was hemostatic. All instruments were removed from the vagina. Instrument, needle, sponge count were correct. The patient was taken to the recovery room in stable condition. Grafts/Implants Used: Mirena IUD Procedure Start Time: 12:02 Procedure Stop Time: 12:21 Complications None Admit VTE Documentation VTE Present on Admission: No VTE Mechan Device Prophylaxis: SCD's
[2021-10-17] MEDS: 0.9% Saline Lock 10 ML Syringe IV (13:33)
== END 2021-10-17 13:45 | disposition home or self-care (01) ==
LOC: SDC 09:45 → AC 09:46
PROVIDERS: PCP Internal Medicine; Referring Provider Obstetrics & Gynecology; Visit Provider Obstetrics & Gynecology
PROC: 0UDB7ZZ Extraction of Endometrium, Via Natural or Artificial Opening (ICD-10-PCS; CPT 57520; principal; 2021-10-17 11:15)
DX: N87.1 Moderate cervical dysplasia (principal); R56.9 Unspecified convulsions; N85.4 Malposition of uterus; Z30.433 Encounter for removal and reinsertion of intrauterine contraceptive device; Z79.01 Long term (current) use of anticoagulants; Z79.899 Other long term (current) drug therapy
CPT/HCPCS: 57520; 58301; 58300; 81025; 85027; 86850; 86900; 86901; 88305; 88307; 88341; 88342; J7120; A4216; J2405

== ENCOUNTER 2022-01-12 21:03 | Emergency (ER) | payer MEDICARE, MEDICAID, SELFPAY ==
[2022-01-12 21:05] VITALS: PULSE 98; RESP 14; TEMP 37.1; O2SAT 97; BMI 30.7
--- NOTE | 2022-01-12 21:05 | EKG12_ITS ---
Test Reason : CP Blood Pressure : / mmHG Vent. Rate : 098 BPM Atrial Rate : 098 BPM P-R Int : 172 ms QRS Dur : 076 ms QT Int : 354 ms P-R-T Axes : 043 -11 080 degrees QTc Int : 451 ms Normal sinus rhythm Nonspecific T wave abnormality Abnormal ECG Confirmed by JEREMI SALGADO, ZINA ([id number]), technical editor SALOME MENJIVAR ([id number]) on 01/13/2022 9:24:39 AM Referred By: CHANDLER Confirmed By:ZINA BLOOD MD
--- NOTE | 2022-01-12 22:19 | EDS_ITS ---
HPI History of Present Illness Chief Complaint: Chest Pain Narrative Narrative: 31-year-old female with history of epilepsy, myasthenia gravis, migraine presenting with headache and chest pain. She states that she was recently placed on Lexapro 20 mg due to increasing anxiety. She states that immediately after started taking 20 mg she started to have the symptoms. She states it makes her sleepy. She states that sometimes she feels jolts throughout her entire body. She states her headache hurts behind her eyes. It hurts whether her eyes are closed or open. She does admit to light sensitivity and sound sensitivity. She is not had fever or chills. Patient anticoagulated on Eliquis due to history of blood clots. [facility] Medical History Anemia Chest pain Difficulty chewing Difficulty swallowing History of stress test Hx of peripheral vascular disease Injury of head and neck Leg cramps Migraine headache Myasthenia gravis Non-smoker Normal echocardiogram (~05/18/16) Seizures Shortness of breath on exertion Home Medications zonisamide 100 mg capsule 200 mg PO 0800 seizures 12/23/17 [History Last Taken 10/17/21] lorazepam 1 mg tablet 1 mg PO DAILY PRN PRN Seizure 01/07/18 [History Last Taken 05/03/18] zonisamide 100 mg capsule 300 mg PO QHS seizures 03/26/19 [History Last Taken 20:00] ropinirole 0.5 mg tablet 1 mg PO QHS spasms 10/06/19 [History Last Taken 11/01/20 20:00] eculizumab 300 mg/30 mL intravenous solution (Soliris) 1,200 mg IV .QOWEEK myasthenia gravis 10/14/20 [History Last Taken 10/29/20 08:00] lamotrigine 200 mg tablet,extended release 24 hr 100 mg PO 0800 seizures 10/14/20 [History Last Taken 10/17/21] lamotrigine 250 mg tablet,extended release 24 hr 250 mg PO QHS seizures 10/14/20 [History Last Taken 11/01/20 20:00] levonorgestrel 20 mcg/24 hours (7 yrs) 52 mg intrauterine device (Mirena) 20 mcg intrauterine UD control 10/14/20 [History Last Taken Unknown] oxcarbazepine 150 mg tablet 150 mg PO QHS SEIZURES 10/14/20 [History Last Taken 11/01/20 20:00] apixaban 5 mg tablet (Eliquis) 5 mg PO BID blood clot 11/02/20 [History Last Taken 10/13/21] ferrous sulfate 325 mg (65 mg iron) tablet (iron) 325 mg PO DAILY anemia 11/02/20 [History Last Taken 11/01/20 08:00] escitalopram oxalate 10 mg tablet (Lexapro) 10 mg PO QHS 10/09/21 [History Last Taken Unknown] oxycodone-acetaminophen 5 mg-325 mg tablet (Percocet) 1 tab PO Q6H PRN pain 7 days #5 tabs 10/17/21 [Rx Last Taken Unknown] Allergy/AdvReac Type Severity Reaction Status Date / Time levetiracetam [From Keppra] Allergy Other Verified 10/17/21 10:39 Penicillins Allergy Rash Verified 10/17/21 10:39 phenytoin [From Dilantin] Allergy PT UNSURE Verified 10/17/21 10:39 OF REACTION shellfish derived Allergy Other Verified 10/17/21 10:39 soy AdvReac NEEDS Verified 10/17/21 10:39 FOLLOW-UP Surgical History Hx of appendectomy Hx of thymectomy Hx of total hip arthroplasty Social History household members: spouse Smoking Status: Never smoker second hand exposure: Yes alcohol intake: never substance use type: does not use ROS ROS ED Eyes Eyes: Denies blurry vision or change in vision ENT ENT ED: Denies rhinorrhea or sore throat Cardiovascular Cardiovascular: Reports as per HPI Respiratory/Chest Respiratory/Chest: Denies cough or dyspnea Gastrointestinal Gastrointestinal: Denies abdominal pain or constipation Genitourinary Genitourinary ED: Denies dysuria or hematuria Musculoskeletal Musculoskeletal: Denies arthralgias or back pain Integumentary Denies abscess Neurologic Neurologic: Reports headache(s) Psychiatric Psychiatric: Reports anxiety; Denies depression EXAM Physical Exam Const Vital Signs: 01/12/22 21:05 01/12/22 21:09 01/12/22 23:30 Temperature 98.8 F Temperature Source Temporal Pulse Rate 98 88 Respiratory Rate 14 17 Respiratory Effort Normal Blood Pressure 119/76 Blood Pressure Mean 90 Pulse Ox 97 97 Oxygen Delivery Method Room Air Room Air Positive well nourished General Appearance ED: NAD; Negative for pallor HEENT Reports TM's clear and moist mucous membranes normocephalic Tympanic Membrane ED: Yes TM's clear Eyes PERRL General Eye ED: Negative for pale conjunctiva or scleral icterus Chest Wall inspection of chest normal Resp normal respiratory effort Effort and Inspection: respiratory distress Auscultation: Negative for rales, rhonchi or wheezes Cardio regular rate and regular rhythm GI normal to inspection, nondistended, normoactive bowel sounds Neuro oriented x3 and CN's II-XII intact bilaterally Sensorium / Orientation: awake Psych mental status grossly normal Skin no rashes or lesions noted and no wounds General Skin Exam: Negative for jaundice or pallor Heart Score History: Slightly/Non-Suspicious ECG: Normal Age: </= 45 years Risk Factors: No Risk Factors Troponin: </= Normal Limit Score: 0 MDM MDM MDM Narrative Medical decision making narrative: Patient presenting with multiple symptoms which are likely side effect of start ing her new medication at a higher dose. She does complain of headache and feeling of jolts in her body. He does have a history of migraine. She has not had any seizures. No fevers or chills. I did obtain blood work and her CBC and CMP are unremarkable. High-sensitivity troponin is 3. EKG on my interpretation is sinus rhythm with a ventricular rate of 90 bpm without sign of ischemic change. Chest x-ray on my interpretation shows no acute cardiopulmonary process. Patient was treated with Compazine and Benadryl and states she still had mild headache on reevaluation. She was given Toradol. She states that on reevaluation she is having side effects to the Compazine was really seems to be like restless legs. This may also be the Benadryl. I recommended to her that she talk to her primary care provider regarding medication changes for her anxiety. I do not believe needs other work-up or imaging. Impression: 1 chest pain noncardiac 2. Headache 3. Medication side effect Lab Data Attestation: I reviewed the patient's lab results. Labs: Laboratory Results - last 24 hr 01/12/22 01/12/22 22:48 22:48 WBC 10.4 RBC 4.54 Hgb 12.2 Hct 38.9 MCV 85.7 MCH 26.9 L MCHC 31.4 L RDW Std Deviation 41.2 RDW Coeff of Mariella 13.2 Plt Count 283 MPV 9.5 Immature Gran % (Auto) 0.300 Neut % (Auto) 69.8 Lymph % (Auto) 21.4 [place] % (Auto) 6.7 Eos % (Auto) 1.3 Baso % (Auto) 0.5 Absolute Neuts (auto) 7.3 Absolute Lymphs (auto) 2.23 Nucleated RBC % 0 Sodium 141 Potassium 3.6 Chloride 111 H Carbon Dioxide 22.0 Anion Gap 8 BUN 12 Creatinine 0.72 Estim Creat Clear Calc 87.90 Est GFR (MDRD) Af Amer 119 Est GFR (MDRD) Non-Af 98 BUN/Creatinine Ratio 16.6 Glucose 93 Calcium 8.9 Total Bilirubin 0.20 AST 15 ALT 24 Alkaline Phosphatase 102 Troponin I High Sens 3 Total Protein 7.1 Albumin 3.6 Globulin 3.5 Albumin/Globulin Ratio 1.0 Radiography Diagnostic Testing: Clinical Impression(s) from Imaging Studies Chest X-Ray 01/12/22 22:25 IMPRESSION: Normal x-ray examination of the chest. Electronically Signed: Chuy Farias DO at 22:36 EDT , Discharge Plan Triage Chief Complaint: Chest Pain ED Provider: Kojo Lewis Dx/Rx/DC Orders Instructions: Self-Care for Headaches, ED Chest Pain, Noncardiac, ED Drug Reaction, Other Prescriptions: No Action zonisamide 100 capsule 200 mg PO 0800 Label Comments: seizures lorazepam 1 MG tablet 1 mg PO DAILY PRN PRN (Reason: Seizure) Label Comments: seizures zonisamide 100 MG capsule 300 mg PO QHS Label Comments: seizures ropinirole 0.5 MG tablet 1 mg PO QHS oxcarbazepine 150 mg tablet 150 mg PO QHS Mirena 20 mcg/24 hours (6 yrs) 52 mg Intrauterine Device 20 mcg INTRAUTERINE UD Label Comments: already placed Soliris 300 mg/30 mL Solution 1,200 mg IV .QOWEEK lamotrigine 200 mg tablet extended release 24hr 100 mg PO 0800 Label Comments: take 1 tablet by mouth once daily lamotrigine 250 mg tablet extended release 24hr 250 mg PO QHS Label Comments: take 1 tablet by mouth once daily at bedtime ferrous sulfate [iron] 325 mg (65 mg iron) Tablet 325 mg PO DAILY Eliquis 5 mg tablet 5 mg PO BID Label Comments: TAKE 2 TABLETS BY MOUTH TWICE DAILY FOR 7 DAYS, THEN TAKE 1 TABLET TWICE DAILY escitalopram oxalate [Lexapro] 10 mg Tablet 10 mg PO QHS oxycodone-acetaminophen [Percocet] 5-325 mg tablet 1 tab PO Q6H PRN (Reason: pain) 7 Days Qty: 5 0RF Primary Care Provider: Soha Perdomo Referrals: Soha Perdomo MD [Primary Care Provider] - Disposition Disposition: Home, Self Care
--- NOTE | 2022-01-12 22:25 | RAD_ITS ---
STUDY: X-RAY CHEST REASON FOR EXAM: Female, 31 years old. chest pain TECHNIQUE: Single AP portable view of the chest. COMPARISON: 08/15/2021 FINDINGS: Stable right chest wall Mediport The lungs are clear and expanded. There is no demonstrated pleural abnormality. Normal size heart. Normal mediastinum and shima. Normal visualized pulmonary arteries. Normal visualized aortic arch and descending thoracic aorta. Normal visualized thoracic spine. Normal visualized ribs, clavicles, and shoulders. There is no demonstrated abnormality of the visualized soft tissue structures of the upper abdomen. RAD/Chest 1 View (Portable) IMPRESSION: Normal x-ray examination of the chest. Electronically Signed: Chuy Farias DO at 22:36 EDT ,
[2022-01-12 22:56] LABS: Absolute Lymphocyte Count 2.23 X10^3/uL (0.83-4.51); Absolute Neutrophil Count 7.3 X10^3/uL (2.0-7.7); Basophil# 0.05 X10^3/uL; Basophil% 0.5 % (0-1); Eosinophil# 0.14 X10^3/uL; Eosinophils% 1.3 % (0-5); Hematocrit 38.9 % (37-47); Hemoglobin 12.2 g/dL (12.0-15.0); Lymphocyte # 2.23 X10^3/ul (0.83-4.51); Lymphocyte % 21.4 % (19-41); Mean Corp Hgb Conc 31.4 g/dL (32-36); Mean Corpuscular Hgb 26.9 pg (27.0-32.0); Mean Corpuscular Volume 85.7 fL (81-99); Mean Platelet Vol. 9.5 fl (6.2-12.0); Monocyte% 6.7 % (0-10); NRBC Flagged by Analyzer 0 % (0-5); Neutrophil # 7.29 X10^3/uL (2.7-7.7); Neutrophil % 69.8 % (47-70); Platelet Count 283 K/mm3 (150-450); RBC Distribution Width CV 13.2 % (11.6-14.6); RBC Distribution Width SD 41.2 fl (35.1-43.9); Red Blood Count 4.54 M/mm3 (4.2-5.4); White Blood Count 10.4 K/mm3 (4.4-11.0)
[2022-01-12 23:18] LABS: AST(SGOT) 15 U/L (15-37); Alanine Aminotransfer ALT/SGPT 24 U/L (13-56); Albumin, Serum 3.6 g/dL (3.2-5.0); Alkaline Phosphatase 102 U/L (45-117); Anion Gap 8 (5-15); BUN 12 mg/dL (7-18); BUN/Creat Ratio 16.6 RATIO (10-20); Calcium,Total 8.9 mg/dL (8.5-10.1); Chloride 111 mmol/L (98-107); Creatinine, Serum 0.72 mg/dL (0.55-1.02); EST Glomerular Filtration Rate 98 mL/min (>60); Est Glom Filt Rate - Afr Amer 119 mL/min (>60); Globulin 3.5 g/dL (2.2-4.2); Glucose 93 mg/dL (74-106); Potassium 3.6 mmol/L (3.5-5.1); Protein, Total 7.1 g/dL (6.4-8.2); Sodium Level 141 mmol/L (136-145); Troponin-I HS 3 pg/mL (3.0-54.0)
[2022-01-12] MEDS: DiphenhydrAMINE 50 MG/ML Syringe 25 MG IV (23:23)
[2022-01-12] MEDS: 0.9% Normal Saline 1,000 ML 1000 ML IV (23:23)
[2022-01-12] MEDS: proCHLORPERazine 10 MG/2 ML Vial IV (23:23)
[2022-01-12 23:30] VITALS: BP 119/76; PULSE 88; RESP 17; O2SAT 97
[2022-01-12] MEDS: Ketorolac 15 MG/ML Vial IV (23:59)
[2022-01-13 00:46] VITALS: BP 104/66; PULSE 81; RESP 18; O2SAT 95
== END 2022-01-13 00:47 | disposition home or self-care (01) ==
PROVIDERS: Emergency Provider Student in an Organized Health Care Education/Training Program; PCP Internal Medicine; Visit Provider Student in an Organized Health Care Education/Training Program
DX: R07.89 Other chest pain (principal); G40.909 Epilepsy, unspecified, not intractable, without status epilepticus; R51.9 Headache, unspecified; F41.9 Anxiety disorder, unspecified; Z86.2 Personal history of diseases of the blood and blood-forming organs and certain disorders involving the immune mechanism; Z79.01 Long term (current) use of anticoagulants; Z79.899 Other long term (current) drug therapy
CPT/HCPCS: 36591; 71045; 80053; 84484; 85025; 87811; 93005; 96361; 96374; 96375; 99285; J7030; A4216

== ENCOUNTER 2022-02-05 15:16 | Emergency (ER) | payer MEDICARE, MEDICAID, SELFPAY ==
[2022-02-05 15:17] VITALS: BP 98/59; PULSE 116; RESP 18; TEMP 37.1; O2SAT 98; BMI 26.5
--- NOTE | 2022-02-05 15:44 | CT_ITS ---
STUDY: CT BRAIN WITHOUT CONTRAST REASON FOR EXAM: Female, 31 years old. headache RADIATION DOSAGE (If Supplied By Facility): CTDIvol = ( 44.99 ) mGy, DLP = ( 796.11 ) mGycm TECHNIQUE: Transaxial CT imaging of the brain was performed without administration of intravenous contrast material. Individualized dose optimization techniques were used for this CT. COMPARISON: No relevant priors. FINDINGS: Normal soft tissue structures. Normal calvarium. Normal size ventricles and extra-axial spaces for the patient''s age. Normal white matter tracts of the cerebral hemispheres. Normal basal ganglia and thalami. Normal brainstem. Normal cerebellum. There is no intracranial hemorrhage. There are no findings of an acute ischemic infarction. Normal visualized paranasal sinuses. CT/Brain/Head without Contrast IMPRESSION: Normal unenhanced CT scan of the brain. Electronically Signed: Tessie Peacock MD at 17:38 EDT Reading Location ID and State: [id number] / Tel , Service support ,
[2022-02-05 15:46] VITALS: BP 118/81; PULSE 102; RESP 20; O2SAT 96
--- NOTE | 2022-02-05 15:55 | EX.ED.DYSGE1 ---
HPI History of Present Illness Chief Complaint: Seizure Narrative Narrative: 31-year-old female presenting after seizure episodes at home. She has a history of epilepsy in the past. She is on zonisamide for this. She also has as needed lorazepam and oxcarbazepine. Patient also has history of myasthenia gravis and sees started recently on January 27 on Ultomiris for this. She had initial loading dose. She had the second dose of this today which is the bigger dose. This was at about 11:30 AM today. The patient's mother reports that she noted her to be twitching. She had a grand mal seizure at about and she was given intranasal diazepam by her mother. She had a second 1 at about 3:00. Each of these last about a minute. Mother reports that she had another one as EMS was getting her. She was given a dose of diazepam again. On arrival to the ER she is awake and alert and talking. She states she has a headache. States that her legs hurt. Patient does state that her Ultomiris is supposed to help with her seizures as well. Mother does report that her seizure episodes although they lasted a minute she came back to baseline rather quickly and was alert and oriented within a minute or so [facility] Medical History Anemia Chest pain Difficulty chewing Difficulty swallowing History of stress test Hx of peripheral vascular disease Injury of head and neck Leg cramps Migraine headache Myasthenia gravis Non-smoker Normal echocardiogram (~05/18/16) Seizures Shortness of breath on exertion Home Medications zonisamide 100 mg capsule 200 mg PO 0800 seizures 12/23/17 [History Last Taken 10/17/21] lorazepam 1 mg tablet 1 mg PO DAILY PRN PRN Seizure 01/07/18 [History Last Taken 05/03/18] zonisamide 100 mg capsule 300 mg PO QHS seizures 03/26/19 [History Last Taken 11/01/20 20:00] ropinirole 0.5 mg tablet 1 mg PO QHS spasms 10/06/19 [History Last Taken 11/01/20 20:00] lamotrigine 200 mg tablet,extended release 24 hr 100 mg PO 0800 seizures 10/14/20 [History Last Taken 10/17/21] lamotrigine 250 mg tablet,extended release 24 hr 250 mg PO QHS seizures 10/14/20 [History Last Taken 11/01/20 20:00] levonorgestrel 20 mcg/24 hours (8 yrs) 52 mg intrauterine device (Mirena) 20 mcg intrauterine UD control 10/14/20 [History Last Taken Unknown] oxcarbazepine 150 mg tablet 150 mg PO QHS SEIZURES 10/14/20 [History Last Taken 11/01/20 20:00] apixaban 5 mg tablet (Eliquis) 5 mg PO BID blood clot 11/02/20 [History Last Taken 10/13/21] ferrous sulfate 325 mg (65 mg iron) tablet (iron) 325 mg PO DAILY anemia 11/02/20 [History Last Taken 11/01/20 08:00] escitalopram oxalate 10 mg tablet (Lexapro) 10 mg PO QHS 10/09/21 [History Last Taken Unknown] oxycodone-acetaminophen 5 mg-325 mg tablet (Percocet) 1 tab PO Q6H PRN pain 7 days #5 tabs 10/17/21 [Rx Last Taken Unknown] Ultomiris 02/05/22 [History Last Taken Unknown] Allergy/AdvReac Type Severity Reaction Status Date / Time levetiracetam [From Keppra] Allergy Other Verified 02/05/22 15:22 Penicillins Allergy Rash Verified 02/05/22 15:22 phenytoin [From Dilantin] Allergy PT UNSURE Verified 02/05/22 15:22 OF REACTION prochlorperazine Allergy Other Verified 02/05/22 15:22 [From Compazine] shellfish derived Allergy Other Verified 02/05/22 15:22 soy AdvReac NEEDS Verified 02/05/22 15:22 FOLLOW-UP Surgical History Hx of appendectomy Hx of thymectomy Hx of total hip arthroplasty Social History household members: spouse Smoking Status: Never smoker second hand exposure: Yes alcohol intake: never substance use type: does not use ROS ROS ED Constitutional Constitutional ED: Denies chills or fever(s) Eyes Eyes: Denies change in vision ENT ENT ED: Denies rhinorrhea or sore throat Cardiovascular Cardiovascular: Denies chest pain or palpitations Respiratory/Chest Respiratory/Chest: Denies cough or dyspnea Gastrointestinal Gastrointestinal: Denies abdominal pain Genitourinary Genitourinary ED: Denies dysuria or hematuria Musculoskeletal Musculoskeletal: Denies arthralgias or back pain Integumentary Denies abscess Neurologic Neurologic: Reports headache(s) and other Details: 3 seizures today, shakiness EXAM Physical Exam Const Vital Signs: 02/05/22 15:17 02/05/22 15:46 Temperature 98.8 F Temperature Source Temporal Pulse Rate 116 H 102 H Respiratory Rate 18 20 H Blood Pressure 98/59 L 118/81 H Blood Pressure Mean 72 93 Pulse Ox 98 96 Oxygen Delivery Method Room Air Room Air Positive well nourished General Appearance ED: NAD; Negative for pallor HEENT Reports moist mucous membranes Eyes PERRL and EOMs intact bilaterally Chest Wall inspection of chest normal Resp normal respiratory effort and clear to auscultation bilaterally Cardio regular rate and regular rhythm GI normal to inspection, nondistended, normoactive bowel sounds Neuro oriented x3 and CN's II-XII intact bilaterally Sensorium / Orientation: alert Motor Exam: strength 5/5 throughout Psych mental status grossly normal Skin no rashes or lesions noted and no wounds General Skin Exam: Negative for jaundice or pallor MDM MDM MDM Narrative Medical decision making narrative: Patient seen and evaluated on arrival. Vital signs are stable she is afebrile. She is awake and alert and talking. She states she has a mild headache and her legs are hurting her. Did not find any evidence of trauma. She has no focal neurologic deficits on examination. Patient is given IV fluids. CBC and CMP are unremarkable except for a potassium of 3.3. Serum negative. LFTs are normal. CT brain normal. I spoke with Dr. Gilmore her neurologist and I discussed the case with him. 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 He did not want to change any medications. He states that she can go home and follow-up with him as an outpatient. She has not had a repeat seizure here. Patient will be discharged home in stable condition. Impression: 1. Hypokalemia 2. Breakthrough seizure Lab Data Attestation: I reviewed the patient's lab results. Labs: Laboratory Results - last 24 hr 02/05/22 02/05/22 02/05/22 16:30 16:30 16:30 WBC 9.1 RBC 4.62 Hgb 12.5 Hct 38.6 MCV 83.5 MCH 27.1 MCHC 32.4 RDW Std Deviation 41.1 RDW Coeff of Mariella 13.5 Plt Count 270 MPV 9.4 Immature Gran % (Auto) 0.200 Neut % (Auto) 69.1 Lymph % (Auto) 23.0 [place] % (Auto) 5.9 Eos % (Auto) 1.4 Baso % (Auto) 0.4 Absolute Neuts (auto) 6.3 Absolute Lymphs (auto) 2.08 Nucleated RBC % 0 Sodium 140 Potassium 3.3 L Chloride 110 H Carbon Dioxide 22.0 Anion Gap 8 BUN 11 Creatinine 0.68 Estim Creat Clear Calc 93.07 Est GFR (MDRD) Af Amer 129 Est GFR (MDRD) Non-Af 107 BUN/Creatinine Ratio 16.3 Glucose 91 Calcium 9.1 Magnesium 2.0 Total Bilirubin 0.20 AST 12 L ALT 16 Alkaline Phosphatase 101 Total Protein 7.4 Albumin 3.7 Globulin 3.7 Albumin/Globulin Ratio 1.0 HCG, Quant < 1 Radiography Diagnostic Testing: Clinical Impression(s) from Imaging Studies Brain CT 02/05/22 15:44 IMPRESSION: Normal unenhanced CT scan of the brain. Electronically Signed: Tessie Paecock MD at 17:38 EDT Reading Location ID and State: [id number] / Tel , Service support , Discharge Plan Triage Chief Complaint: Seizure ED Provider: Kojo Lewis Dx/Rx/DC Orders Instructions: ED Seizure, Recurrent (Adult) Prescriptions: No Action zonisamide 100 capsule 200 mg PO 0800 Label Comments: seizures lorazepam 1 MG tablet 1 mg PO DAILY PRN PRN (Reason: Seizure) Label Comments: seizures zonisamide 100 MG capsule 300 mg PO QHS Label Comments: seizures ropinirole 0.5 MG tablet 1 mg PO QHS oxcarbazepine 150 mg tablet 150 mg PO QHS Mirena 20 mcg/24 hours (6 yrs) 52 mg Intrauterine Device 20 mcg INTRAUTERINE UD Label Comments: already placed lamotrigine 200 mg tablet extended release 24hr 100 mg PO 0800 Label Comments: take 1 tablet by mouth once daily lamotrigine 250 mg tablet extended release 24hr 250 mg PO QHS Label Comments: take 1 tablet by mouth once daily at bedtime ferrous sulfate [iron] 325 mg (65 mg iron) Tablet 325 mg PO DAILY Eliquis 5 mg tablet 5 mg PO BID Label Comments: TAKE 2 TABLETS BY MOUTH TWICE DAILY FOR 7 DAYS, THEN TAKE 1 TABLET TWICE DAILY escitalopram oxalate [Lexapro] 10 mg Tablet 10 mg PO QHS oxycodone-acetaminophen [Percocet] 5-325 mg tablet 1 tab PO Q6H PRN (Reason: pain) 7 Days Qty: 5 0RF Ultomiris Primary Care Provider: Soha Perdomo Referrals: Soha Perdomo MD [Primary Care Provider] - Disposition Disposition: Home, Self Care
[2022-02-05] MEDS: Ondansetron 4 MG/2 ML Vial IV (16:37)
[2022-02-05] MEDS: 0.9% Normal Saline 1,000 ML 1000 ML IV (16:37)
[2022-02-05 16:42] LABS: Absolute Lymphocyte Count 2.08 X10^3/uL (0.83-4.51); Absolute Neutrophil Count 6.3 X10^3/uL (2.0-7.7); Basophil# 0.04 X10^3/uL; Basophil% 0.4 % (0-1); Eosinophil# 0.13 X10^3/uL; Eosinophils% 1.4 % (0-5); Hematocrit 38.6 % (37-47); Hemoglobin 12.5 g/dL (12.0-15.0); Lymphocyte # 2.08 X10^3/ul (0.83-4.51); Mean Corp Hgb Conc 32.4 g/dL (32-36); Mean Corpuscular Hgb 27.1 pg (27.0-32.0); Mean Corpuscular Volume 83.5 fL (81-99); Mean Platelet Vol. 9.4 fl (6.2-12.0); Monocyte# 0.53 X10^3/uL; Monocyte% 5.9 % (0-10); NRBC Flagged by Analyzer 0 % (0-5); Neutrophil # 6.25 X10^3/uL (2.7-7.7); Neutrophil % 69.1 % (47-70); Platelet Count 270 K/mm3 (150-450); RBC Distribution Width CV 13.5 % (11.6-14.6); RBC Distribution Width SD 41.1 fl (35.1-43.9); Red Blood Count 4.62 M/mm3 (4.2-5.4); White Blood Count 9.1 K/mm3 (4.4-11.0)
[2022-02-05 17:03] LABS: AST(SGOT) 12 U/L (15-37); Alanine Aminotransfer ALT/SGPT 16 U/L (13-56); Albumin, Serum 3.7 g/dL (3.2-5.0); Alkaline Phosphatase 101 U/L (45-117); Anion Gap 8 (5-15); BUN 11 mg/dL (7-18); BUN/Creat Ratio 16.3 RATIO (10-20); Calcium,Total 9.1 mg/dL (8.5-10.1); Chloride 110 mmol/L (98-107); Creatinine, Serum 0.68 mg/dL (0.55-1.02); EST Glomerular Filtration Rate 107 mL/min (>60); Est Glom Filt Rate - Afr Amer 129 mL/min (>60); Estimated Creatinine Clearance 93.07 ml/min; Globulin 3.7 g/dL (2.2-4.2); Glucose 91 mg/dL (74-106); Potassium 3.3 mmol/L (3.5-5.1); Protein, Total 7.4 g/dL (6.4-8.2); Sodium Level 140 mmol/L (136-145); hCG Titer Quant., Serum < 1 mIU/mL (1-3)
--- NOTE | 2022-02-05 17:56 | ED.RN ---
DR SUÁREZ PAGED TO CALL DR MUNOZ
[2022-02-05 18:27] LABS: Mucous, Urine 0 SEEN /hpf (<or=2+); Red Blood Cells-Urine 0 SEEN /hpf (0-5); White Blood Cells 0 SEEN /hpf (0-5)
[2022-02-05 18:37] LABS: Color, Urine Yellow (Yellow); Glucose, Dipstick Normal (Normal); Ketone-Dipstick Negative (Negative); Leukocyte Esterase-Dipstick Negative /ul (Negative); Nitrite-Dipstick Negative (Negative); Occult Blood-Urine 10 /ul (Negative); Protein-Dipstick Negative (Negative); Specific Gravity, Urine 1.015 (1.002-1.030); Urine Bilirubin Dipstick Negative (Negative); Urine Clarity Clear (Clear); Urine Urobilinogen Normal (Normal)
[2022-02-05 19:01] LABS: Bacteria 1+ /hpf (None Seen); Squamous Epithelial Cells - UA 0-5 SEEN /hpf (5-10)
[2022-02-05] MEDS: Potassium Chloride Oral Tablet 20 MEQ 40 MEQ PO (19:08)
[2022-02-05 19:13] VITALS: BP 105/71
--- NOTE | 2022-02-05 19:17 | ED.RN ---
pt states does not need heparin flush today bc it was flushed today.
== END 2022-02-05 19:18 | disposition home or self-care (01) ==
PROVIDERS: Emergency Provider Student in an Organized Health Care Education/Training Program; PCP Internal Medicine; Visit Provider Student in an Organized Health Care Education/Training Program
DX: G40.909 Epilepsy, unspecified, not intractable, without status epilepticus (principal); G70.00 Myasthenia gravis without (acute) exacerbation; E87.6 Hypokalemia; Z79.899 Other long term (current) drug therapy; Z79.01 Long term (current) use of anticoagulants
CPT/HCPCS: 36591; 70450; 80053; 81001; 83735; 84702; 85025; 96361; 96374; 99285; J7030; A4216; J2405

== ENCOUNTER 2022-03-27 09:02 | Emergency (ER) | payer MEDICARE, MEDICAID, SELFPAY ==
[2022-03-27 09:03] VITALS: BP 113/46; PULSE 116; RESP 16; TEMP 35.9; O2SAT 98; BMI 29.9
--- NOTE | 2022-03-27 09:30 | ED.VIS.GI ---
HPI HPI - GI History of Present Illness Chief Complaint: Abd Pain Abdominal Pain/Flank Pain Onset: Days (5) Context: Sudden Onset Timing: Continuous Quality: Sharp and Stabbing Location: LLQ and Left Flank Worsened by: Food Relieved by: Nothing Nausea/Vomiting/Emesis GI Symptom: Positive for Nausea and Vomiting Onset: Days (6) Quality: Negative for Blood streaks, Coffee ground or Hematemesis Diarrhea/Melena/Hematochezia GI Symptom: Negative for Diarrhea, Melena or Hematochezia Associated Symptoms Associated Symptoms: Negative for Dysuria, Frequency or Hematuria LMP: Approximately 10 days ago Narrative Narrative: Patient presents with left-sided abdominal pain that has been constant for the past 5 days. Patient states she has had some nausea and vomiting this started 6 days ago. Patient states that this has improved. Patient states her pain has been constant. Patient went to urgent care today and was referred to the emergency department. Patient describes her pain as sharp and stabbing. Patient states it is over the left flank and into the left lower abdomen. Patient states it is worse with eating. Patient states nothing seems to help with it. Patient denies any diarrhea, melena, or hematochezia. Patient denies any dysuria or hematuria. Patient denies any urinary frequency. Patient states her last menstrual period was approximately 1-1/2 weeks ago. [facility] Medical History Anemia Chest pain Difficulty chewing Difficulty swallowing History of stress test Hx of peripheral vascular disease Injury of head and neck Leg cramps Migraine headache Myasthenia gravis Non-smoker Normal echocardiogram (~05/18/16) Seizures Shortness of breath on exertion Home Medications zonisamide 100 mg capsule 200 mg PO 0800 seizures 12/23/17 [History Last Taken 10/17/21] lorazepam 1 mg tablet 1 mg PO DAILY PRN PRN Seizure 01/07/18 [History Last Taken 05/03/18] zonisamide 100 mg capsule 300 mg PO QHS seizures 03/26/19 [History Last Taken 11/01/20 20:00] ropinirole 0.5 mg tablet 1 mg PO QHS spasms 10/06/19 [History Last Taken 11/01/20 20:00] lamotrigine 200 mg tablet,extended release 24 hr 100 mg PO 0800 seizures 10/14/20 [History Last Taken 10/17/21] lamotrigine 250 mg tablet,extended release 24 hr 250 mg PO QHS seizures 10/14/20 [History Last Taken 11/01/20 20:00] levonorgestrel 20 mcg/24 hours (8 yrs) 52 mg intrauterine device (Mirena) 20 mcg intrauterine UD control 10/14/20 [History Last Taken Unknown] oxcarbazepine 150 mg tablet 150 mg PO QHS SEIZURES 10/14/20 [History Last Taken 11/01/20 20:00] apixaban 5 mg tablet (Eliquis) 5 mg PO BID blood clot 11/02/20 [History Last Taken 10/13/21] ferrous sulfate 325 mg (65 mg iron) tablet (iron) 325 mg PO DAILY anemia 11/02/20 [History Last Taken 11/01/20 08:00] escitalopram oxalate 10 mg tablet (Lexapro) 10 mg PO QHS 10/09/21 [History Last Taken Unknown] Ultomiris 02/05/22 [History Last Taken Unknown] Allergy/AdvReac Type Severity Reaction Status Date / Time levetiracetam [From Keppra] Allergy Other Verified 03/27/22 09:05 Penicillins Allergy Rash Verified 03/27/22 09:05 phenytoin [From Dilantin] Allergy PT UNSURE Verified 03/27/22 09:05 OF REACTION prochlorperazine Allergy Other Verified 03/27/22 09:05 [From Compazine] shellfish derived Allergy Other Verified 03/27/22 09:05 soy AdvReac NEEDS Verified 03/27/22 09:05 FOLLOW-UP Surgical History Hx of appendectomy Hx of thymectomy Hx of total hip arthroplasty Social History household members: spouse Smoking Status: Never smoker second hand exposure: Yes alcohol intake: never substance use type: does not use ROS ROS ED Constitutional Constitutional ED: Reports fever(s), subjective and sweats; Denies chills Eyes Eyes: Denies blurry vision or change in vision ENT ENT ED: Denies rhinorrhea or sore throat Cardiovascular Cardiovascular: Denies chest pain or palpitations Respiratory/Chest Respiratory/Chest: Denies cough or dyspnea Gastrointestinal Gastrointestinal: Reports abdominal pain, nausea and vomiting Genitourinary Genitourinary ED: Denies dysuria or hematuria Musculoskeletal Musculoskeletal: Reports back pain; Denies neck pain Integumentary Denies abscess or rash Neurologic Neurologic: Denies headache(s) or weakness Allergic/Immunologic Allergic/Immunologic ED: Denies mouth swelling or urticaria EXAM Physical Exam Const Vital Signs: 03/27/22 09:03 Temperature 96.7 F L Temperature Source Temporal Pulse Rate 116 H Respiratory Rate 16 Blood Pressure 113/46 L Blood Pressure Mean 68 Pulse Ox 98 Oxygen Delivery Method Room Air Positive well nourished and well developed General Appearance ED: well developed and NAD HEENT Reports moist mucous membranes Neck supple and no JVD Resp normal respiratory effort and clear to auscultation bilaterally Cardio regular rate, regular rhythm and no murmurs GI normal to inspection, nondistended, normoactive bowel sounds Palpation: soft and tender LLQ and LUQ; Negative for guarding or rebound tenderness present Back/Spine General Back: CVA tenderness left Extremity normal to inspection General Extremety ED: Negative for edema or tenderness General Extremity: Negative for edema Neuro oriented x3, CN's II-XII intact bilaterally and no sensory deficits noted Sensorium / Orientation: alert Motor Exam: strength 5/5 throughout Psych mental status grossly normal Skin no rashes or lesions noted MDM MDM MDM Narrative Medical decision making narrative: Patient was given IV fluids, morphine, and Zofran. CBC was within normal limits. Comprehensive metabolic profile was within normal limits. Lipase was normal. Urinalysis shows a leukocyte esterases of 100 with 0-5 white blood cells. There were 10-[address] scan of the abdomen pelvis was obtained. There is no evidence of ureteral lithiasis or hydronephrosis or hydroureter. There is a large amount of retained stool in the colon. There is no acute process noted. This was interpreted by the radiologist and reviewed by myself. Patient was feeling better on reevaluation. Patient was advised of her findings. Patient was instructed to use [id number] laxatives to help with the constipation. Patient was instructed to eat a high-fiber diet. Patient was instructed to follow-up with her primary care physician in 5 to 7 days. Patient understood and was agreeable with the plan. All questions were answered. Lab Data Attestation: I reviewed the patient's lab results. Labs: Laboratory Results - last 24 hr 03/27/22 03/27/22 03/27/22 09:45 10:30 10:30 WBC 6.3 RBC 4.76 Hgb 13.2 Hct 39.4 MCV 82.8 MCH 27.7 MCHC 33.5 RDW Std Deviation 41.1 RDW Coeff of Mariella 13.6 Plt Count 266 MPV 9.8 Immature Gran % (Auto) 0.200 Neut % (Auto) 67.3 Lymph % (Auto) 22.8 [place] % (Auto) 6.9 Eos % (Auto) 2.2 Baso % (Auto) 0.6 Absolute Neuts (auto) 4.2 Absolute Lymphs (auto) 1.43 Nucleated RBC % 0 Sodium 139 Potassium 3.5 Chloride 110 H Carbon Dioxide 22.0 Anion Gap 7 BUN 15 Creatinine 0.72 Estim Creat Clear Calc 87.90 Est GFR (MDRD) Af Amer 119 Est GFR (MDRD) Non-Af 98 BUN/Creatinine Ratio 20.7 H Glucose 95 Calcium 8.7 Total Bilirubin 0.30 AST 14 L ALT 23 Alkaline Phosphatase 78 Total Protein 7.2 Albumin 3.8 Globulin 3.4 Albumin/Globulin Ratio 1.1 Lipase 286 Serum , Qual Urine Color Yellow Urine Clarity Sl. Cloudy Urine pH 6.0 Ur Specific [place] 1.020 Urine Protein 30 H Urine Glucose (UA) Normal Urine Ketones 5 H Urine Occult Blood 50 H Urine Nitrite Negative Urine Bilirubin 3 H Urine Urobilinogen 1 H Ur Leukocyte Esterase 100 H Urine RBC 0 SEEN Urine WBC 0-5 SEEN Ur Squamous Epith Cells 10-25 SEEN Urine Bacteria 1+ Urine Mucus 0 SEEN 03/27/22 10:30 WBC RBC Hgb Hct MCV MCH MCHC RDW Std Deviation RDW Coeff of Mariella Plt Count MPV Immature Gran % (Auto) Neut % (Auto) Lymph % (Auto) [place] % (Auto) Eos % (Auto) Baso % (Auto) Absolute Neuts (auto) Absolute Lymphs (auto) Nucleated RBC % Sodium Potassium Chloride Carbon Dioxide Anion Gap BUN Creatinine Estim Creat Clear Calc Est GFR (MDRD) Af Amer Est GFR (MDRD) Non-Af BUN/Creatinine Ratio Glucose Calcium Total Bilirubin AST ALT Alkaline Phosphatase Total Protein Albumin Globulin Albumin/Globulin Ratio Lipase Serum , Qual NEGATIVE Urine Color Urine Clarity Urine pH Ur Specific [place] Urine Protein Urine Glucose (UA) Urine Ketones Urine Occult Blood Urine Nitrite Urine Bilirubin Urine Urobilinogen Ur Leukocyte Esterase Urine RBC Urine WBC Ur Squamous Epith Cells Urine Bacteria Urine Mucus Radiography Diagnostic Testing: Clinical Impression(s) from Imaging Studies Abdomen/Pelvis CT 03/27/22 09:36 IMPRESSION: 1. No acute process of the abdomen and pelvis. 2. Large amount retained stool in the colon 3. No free air or free fluid or bowel dilatation or obstruction. Electronically Signed: Patrick Quiroz MD at 11:57 EST Reading Location ID and State: [facility] / [place] , Service support , Discharge Plan Triage Chief Complaint: Abd Pain ED Provider: Jhon Priest Dx/Rx/DC Orders Clinical Impression: Abdominal pain, Constipation Instructions: ED Constipation (Adult), ED Abdominal Pain Unkn Cause Male... Prescriptions: No Action zonisamide 100 capsule 200 mg PO 0800 Label Comments: seizures lorazepam 1 MG tablet 1 mg PO DAILY PRN PRN (Reason: Seizure) Label Comments: seizures zonisamide 100 MG capsule 300 mg PO QHS Label Comments: seizures ropinirole 0.5 MG tablet 1 mg PO QHS oxcarbazepine 150 mg tablet 150 mg PO QHS Mirena 20 mcg/24 hours (6 yrs) 52 mg Intrauterine Device 20 mcg INTRAUTERINE UD Label Comments: already placed lamotrigine 200 mg tablet extended release 24hr 100 mg PO 0800 Label Comments: take 1 tablet by mouth once daily lamotrigine 250 mg tablet extended release 24hr 250 mg PO QHS Label Comments: take 1 tablet by mouth once daily at bedtime ferrous sulfate [iron] 325 mg (65 mg iron) Tablet 325 mg PO DAILY Eliquis 5 mg tablet 5 mg PO BID Label Comments: TAKE 2 TABLETS BY MOUTH TWICE DAILY FOR 7 DAYS, THEN TAKE 1 TABLET TWICE DAILY escitalopram oxalate [Lexapro] 10 mg Tablet 10 mg PO QHS Ultomiris Rx Instructions: q 8 weeks Primary Care Provider: Soha Perdomo Referrals: Soha Perdomo MD [Primary Care Provider] - 3-5 Days Disposition Disposition: Home, Self Care
--- NOTE | 2022-03-27 09:36 | CT_ITS ---
STUDY: CT ABDOMEN AND PELVIS WITHOUT CONTRAST REASON FOR EXAM: Female, 31 years old. Pain LLQ pain, nausea, history of appendectomy. RADIATION DOSAGE (If Supplied By Facility): CTDIvol = ( 8.49 ) mGy, DLP = ( 445.67 ) mGycm TECHNIQUE: Transaxial images were obtained from the dome of the diaphragm to the symphysis pubis without oral contrast, and without intravenous contrast. Sagittal and coronal images were reconstructed. Individualized dose optimization techniques were used for this CT. COMPARISON: None. FINDINGS: There are chronic interstitial fibrotic changes of the lung bases. Normal liver. No intrahepatic biliary duct dilatation or liver mass. Normal gallbladder and extrahepatic biliary system. Normal spleen. Normal pancreas. Normal bilateral adrenal glands. Normal right kidney. Normal left kidney. No hydronephrosis or renal masses. No visualized radiopaque stones. Normal visualized stomach. Normal small intestine. Normal colon. A linear calcification is seen in the wall of the proximal one third transverse colon. A large amount of stool is present throughout the colon. No diverticula are present. No bowel dilatation or obstruction. No free air or free fluid. There is non-visualization of the appendix. Normal abdominal aorta. Normal inferior vena cava. Normal retroperitoneum. Normal urinary bladder. The uterus and adnexa are unremarkable. An intrauterine device is present. Normal abdominal wall. Normal osseous structures. CT/Abdomen/Pelvis without Cont IMPRESSION: 1. No acute process of the abdomen and pelvis. 2. Large amount retained stool in the colon 3. No free air or free fluid or bowel dilatation or obstruction. Electronically Signed: Patrick Quiroz MD at 11:57 EST Reading Location ID and State: [facility] / [place] , Service support ,
[2022-03-27 09:52] LABS: Mucous, Urine 0 SEEN /hpf (<or=2+); Red Blood Cells-Urine 0 SEEN /hpf (0-5)
[2022-03-27 09:59] LABS: Color, Urine Yellow (Yellow); Glucose, Dipstick Normal (Normal); Ketone-Dipstick 5 mg/dl (Negative); Leukocyte Esterase-Dipstick 100 /ul (Negative); Nitrite-Dipstick Negative (Negative); Occult Blood-Urine 50 /ul (Negative); Protein-Dipstick 30 mg/dl (Negative); Urine Clarity Sl. Cloudy (Clear); Urine Urobilinogen 1 mg/dl (Normal)
[2022-03-27 10:00] LABS: Urine Bilirubin Dipstick 3 mg/dL (Negative)
[2022-03-27 10:04] LABS: Bacteria 1+ /hpf (None Seen); Squamous Epithelial Cells - UA 10-25 SEEN /hpf (5-10); White Blood Cells 0-5 SEEN /hpf (0-5)
[2022-03-27] MEDS: 0.9% Normal Saline 1,000 ML 1000 ML IV (10:26)
[2022-03-27] MEDS: Ondansetron 4 MG/2 ML Vial IV (10:27)
[2022-03-27] MEDS: Morphine 4 MG/ML Syringe IV (10:27)
[2022-03-27 10:37] LABS: Absolute Lymphocyte Count 1.43 X10^3/uL (0.83-4.51); Absolute Neutrophil Count 4.2 X10^3/uL (2.0-7.7); Basophil# 0.04 X10^3/uL; Basophil% 0.6 % (0-1); Eosinophil# 0.14 X10^3/uL; Eosinophils% 2.2 % (0-5); Hematocrit 39.4 % (37-47); Hemoglobin 13.2 g/dL (12.0-15.0); Lymphocyte # 1.43 X10^3/ul (0.83-4.51); Lymphocyte % 22.8 % (19-41); Mean Corp Hgb Conc 33.5 g/dL (32-36); Mean Corpuscular Hgb 27.7 pg (27.0-32.0); Mean Corpuscular Volume 82.8 fL (81-99); Mean Platelet Vol. 9.8 fl (6.2-12.0); Monocyte# 0.43 X10^3/uL; Monocyte% 6.9 % (0-10); NRBC Flagged by Analyzer 0 % (0-5); Neutrophil # 4.21 X10^3/uL (2.7-7.7); Neutrophil % 67.3 % (47-70); Platelet Count 266 K/mm3 (150-450); RBC Distribution Width CV 13.6 % (11.6-14.6); RBC Distribution Width SD 41.1 fl (35.1-43.9); Red Blood Count 4.76 M/mm3 (4.2-5.4); White Blood Count 6.3 K/mm3 (4.4-11.0)
[2022-03-27 10:48] LABS: Internal QC Validated? YES +Cl - CLEAR BKGD; Pregnancy, Serum, hCG Quali. NEGATIVE Negative
[2022-03-27 10:54] LABS: ALB/GLOB Ratio 1.1 RATIO (0.9-2.4); AST(SGOT) 14 U/L (15-37); Alanine Aminotransfer ALT/SGPT 23 U/L (13-56); Albumin, Serum 3.8 g/dL (3.2-5.0); Alkaline Phosphatase 78 U/L (45-117); Anion Gap 7 (5-15); BUN 15 mg/dL (7-18); BUN/Creat Ratio 20.7 RATIO (10-20); Calcium,Total 8.7 mg/dL (8.5-10.1); Chloride 110 mmol/L (98-107); Creatinine, Serum 0.72 mg/dL (0.55-1.02); EST Glomerular Filtration Rate 98 mL/min (>60); Est Glom Filt Rate - Afr Amer 119 mL/min (>60); Globulin 3.4 g/dL (2.2-4.2); Glucose 95 mg/dL (74-106); Lipase 286 U/L (73-393); Potassium 3.5 mmol/L (3.5-5.1); Protein, Total 7.2 g/dL (6.4-8.2); Sodium Level 139 mmol/L (136-145)
[2022-03-27 12:52] VITALS: O2SAT 98
== END 2022-03-27 13:00 | disposition home or self-care (01) ==
PROVIDERS: Emergency Provider Emergency Medicine; PCP Internal Medicine; Visit Provider Emergency Medicine
DX: K59.00 Constipation, unspecified (principal); R11.2 Nausea with vomiting, unspecified; R10.9 Unspecified abdominal pain
CPT/HCPCS: 36591; 74176; 80053; 81001; 83690; 84703; 85025; 96361; 96374; 96375; 99284; J7030; J2405

== ENCOUNTER 2022-05-27 10:29 | Emergency (ER) | payer MEDICARE, MEDICAID, SELFPAY ==
[2022-05-27 10:30] VITALS: BP 120/82; PULSE 107; RESP 19; TEMP 35.8; O2SAT 100; BMI 34.3
--- NOTE | 2022-05-27 10:53 | RAD_ITS ---
STUDY: X-RAY - PELVIS AND RIGHT HIP REASON FOR EXAM: Female, 31 years old. Right hip pain following a fall. TECHNIQUE: 3 views of the pelvis and hip. COMPARISON: None. FINDINGS: There is a non-specific bowel gas pattern. Normal visualized soft tissue structures. Normal bilateral iliac wings, sacroiliac joints and visualized sacrum. Normal bilateral superior and inferior pubic rami. Normal pubic symphysis. Normal bilateral ischial tuberosities. Normal visualized femoral head. Normal acetabulum. Normal hip joint. RAD/HIP, UNI W/ Pelvis 2-3 Views IMPRESSION: Normal x-ray examination of the pelvis and hip. Electronically Signed: Mitchel Conrad MD at 12:20 [place] ,
--- NOTE | 2022-05-27 10:53 | RAD_ITS ---
STUDY: X-RAY - LEFT SHOULDER REASON FOR EXAM: Female, 31 years old. Pain following injury. TECHNIQUE: 4 view(s) of the shoulder. COMPARISON: None. FINDINGS: Normal glenohumeral articulation. Normal acromioclavicular joint. Normal acromion. Normal humeral head and visualized proximal humerus. The soft tissue structures are unremarkable. Normal visualized pulmonary apex. RAD/Shoulder min 2 Views IMPRESSION: Normal x-ray examination of the shoulder. Electronically Signed: Mitchel Conrad MD at 12:21 EST ,
--- NOTE | 2022-05-27 10:54 | CT_ITS ---
STUDY: CT CERVICAL SPINE WITHOUT CONTRAST REASON FOR EXAM: Female, 31 years old. Trauma due to a fall. RADIATION DOSAGE (If Supplied By Facility): CTDIvol = ( 23.96 ) mGy, DLP = ( 545.98 ) mGycm TECHNIQUE: High resolution transaxial imaging was performed without contrast material. Sagittal and coronal images were reconstructed. Individualized dose optimization techniques were used for this CT. COMPARISON: None FINDINGS: A right-sided central catheter is seen within the superior vena cava. Normal craniovertebral junction. Normal anterior atlantoaxial articulation. Normal odontoid process. Normal cervical lordosis. Normal vertebral bodies and posterior osseous elements. C2-3: Normal endplates. Normal disc height and morphology. Normal central canal and intervertebral neuroforamina. C3-4: Normal endplates. Normal disc height and morphology. Normal central canal and intervertebral neuroforamina. C4-5: Normal endplates. Normal disc height and morphology. Normal central canal and intervertebral neuroforamina. C5-6: Normal endplates. Normal disc height and morphology. Normal central canal and intervertebral neuroforamina. C6-7: Normal endplates. Normal disc height and morphology. Normal central canal and intervertebral neuroforamina. C7-T1: Normal endplates. Normal disc height and morphology. Normal central canal and intervertebral neuroforamina. Normal visualized soft tissue structures. CT/Spine Cervical without Contras IMPRESSION: Normal unenhanced CT examination of the cervical spine. Electronically Signed: Mitchel Conrad MD at 12:00 EST ,
--- NOTE | 2022-05-27 10:54 | CT_ITS ---
STUDY: CT BRAIN WITHOUT CONTRAST REASON FOR EXAM: Female, 31 years old. Head trauma due to a fall. RADIATION DOSAGE (If Supplied By Facility): CTDIvol = ( 44.99 ) mGy, DLP = ( 812.98 ) mGycm TECHNIQUE: Transaxial CT imaging of the brain was performed without administration of intravenous contrast material. Individualized dose optimization techniques were used for this CT. COMPARISON: Comparison is made with prior study dated 02/05/2022. FINDINGS: Normal soft tissue structures. Normal calvarium. Normal size ventricles and extra-axial spaces for the patient''s age. Normal white matter tracts of the cerebral hemispheres. Normal basal ganglia and thalami. Normal brainstem. Normal cerebellum. There is no intracranial hemorrhage. There are no findings of an acute ischemic infarction. Normal visualized paranasal sinuses. CT/Brain/Head without Contrast IMPRESSION: Normal unenhanced CT scan of the brain. Electronically Signed: Mitchel Conrad MD at 11:58 EST ,
--- NOTE | 2022-05-27 10:54 | RAD_ITS ---
STUDY: X-RAY CHEST REASON FOR EXAM: Female, 31 years old. History of fall. TECHNIQUE: Single AP portable view of the chest. COMPARISON: Comparison is made with prior chest radiograph dated 01/12/2022. FINDINGS: A right-sided portacatheter is seen. The tip is at the junction of the superior vena cava and right atrium. The lungs are clear and expanded. There is no demonstrated pleural abnormality. Normal size heart. Normal mediastinum and shima. Normal visualized pulmonary arteries. Normal visualized aortic arch and descending thoracic aorta. Normal visualized thoracic spine. Normal visualized ribs, clavicles, and shoulders. There is no demonstrated abnormality of the visualized soft tissue structures of the upper abdomen. RAD/Chest 1 View (Portable) IMPRESSION: Normal x-ray examination of the chest. Electronically Signed: Mitchel Conrad MD at 12:19 EST ,
--- NOTE | 2022-05-27 11:00 | EDS_ITS ---
HPI History of Present Illness Chief Complaint: Fall Informant: patient Narrative Narrative: Is a 31-year-old female with history of myasthenia gravis (on every 8-week infusions of Ravulizumab), seizure disorder and migraines presenting for fall downstairs. Patient is on 5 mg Eliquis daily to extend the life of her port. She last had an infusion for her myasthenia gravis yesterday. She states yesterday she was wearing wet shoes in the house and she slipped and fell landing on her right hip. She had been having some right hip pain since. Today she was on the top of the stairs talking to her son when she turned and her hip gave out and she fell down the stairs. She states she fell down 13 steps headfirst and her head hit each step on the way down. When she got to the bottom she had episode of nausea and vomiting no she feels dizzy. She is compl aining of left-sided thoracic back pain, left shoulder plain and left-sided neck pain. She continues to complain of right-sided hip pain from her fall yesterday. She does have a headache. No other complaints at this time. [facility] Medical History Anemia Chest pain Difficulty chewing Difficulty swallowing History of stress test Hx of peripheral vascular disease Injury of head and neck Leg cramps Migraine headache Myasthenia gravis Non-smoker Normal echocardiogram (~05/18/16) Seizures Shortness of breath on exertion Home Medications zonisamide 100 mg capsule 200 mg PO 0800 seizures 12/23/17 [History Last Taken 10/17/21] lorazepam 1 mg tablet 1 mg PO DAILY PRN PRN Seizure 01/07/18 [History Last Taken 05/03/18] zonisamide 100 mg capsule 300 mg PO QHS seizures 03/26/19 [History Last Taken 11/01/20 20:00] ropinirole 0.5 mg tablet 1 mg PO QHS spasms 10/06/19 [History Last Taken 11/01/20 20:00] lamotrigine 200 mg tablet,extended release 24 hr 100 mg PO 0800 seizures 10/14/20 [History Last Taken 10/17/21] lamotrigine 250 mg tablet,extended release 24 hr 250 mg PO QHS seizures 10/14/20 [History Last Taken 11/01/20 20:00] levonorgestrel 21 mcg/24 hours (8 yrs) 52 mg intrauterine device (Mirena) 20 mcg intrauterine UD control 10/14/20 [History Last Taken Unknown] oxcarbazepine 150 mg tablet 150 mg PO QHS SEIZURES 10/14/20 [History Last Taken 11/01/20 20:00] apixaban 5 mg tablet (Eliquis) 5 mg PO BID blood clot 11/02/20 [History Last Taken 10/13/21] ferrous sulfate 325 mg (65 mg iron) tablet (iron) 325 mg PO DAILY anemia 11/02/20 [History Last Taken 11/01/20 08:00] escitalopram oxalate 10 mg tablet (Lexapro) 10 mg PO QHS 10/09/21 [History Last Taken Unknown] Ultomiris 02/05/22 [History Last Taken Unknown] hydrocodone-acetaminophen 5-325mg 5mg-325mg 1 tab PO Q6H PRN PRN Pain 3 days #10 TABLETS 05/27/22 [Rx Last Taken Unknown] meclizine 25 mg tablet 25 mg PO 4X/DAY PRN PRN Dizziness #20 tabs 05/27/22 [Rx Last Taken Unknown] Allergy/AdvReac Type Severity Reaction Status Date / Time levetiracetam [From Keppra] Allergy Other Verified 05/27/22 10:35 Penicillins Allergy Rash Verified 05/27/22 10:35 phenytoin [From Dilantin] Allergy PT UNSURE Verified 05/27/22 10:35 OF REACTION prochlorperazine Allergy Other Verified 05/27/22 10:35 [From Compazine] shellfish derived Allergy Other Verified 05/27/22 10:35 soy AdvReac NEEDS Verified 05/27/22 10:35 FOLLOW-UP Surgical History Hx of appendectomy Hx of thymectomy Hx of total hip arthroplasty Social History household members: spouse Smoking Status: Never smoker second hand exposure: Yes alcohol intake: never substance use type: does not use ROS ROS ED Constitutional Constitutional ED: Denies chills or fever(s) Eyes Eyes: Denies blurry vision ENT ENT ED: Denies rhinorrhea or sore throat Cardiovascular Cardiovascular: Denies chest pain Respiratory/Chest Respiratory/Chest: Denies cough or dyspnea Gastrointestinal Gastrointestinal: Reports nausea and vomiting; Denies abdominal pain Musculoskeletal Musculoskeletal: Reports arthralgias, back pain, myalgias and neck pain Integumentary Denies Abrasions or rash Neurologic Neurologic: Reports headache(s); Denies paresthesias or weakness Psychiatric Psychiatric: Denies anxiety Hematologic/Lymphatic Hematologic/Lymphatic: Reports easy bleeding and easy bruising EXAM Physical Exam Const Vital Signs: 05/27/22 10:30 05/27/22 12:29 05/27/22 13:15 Temperature 96.4 F L Temperature Source Temporal Pulse Rate 107 H 74 Respiratory Rate 19 H 15 Respiratory Effort Normal Non-Labored Respiratory Depth Normal Respiratory Pattern Normal Blood Pressure 120/82 H 103/66 Blood Pressure Mean 94 78 Pulse Ox 100 99 Oxygen Delivery Method Room Air Room Air Positive well nourished and well developed General Appearance ED: well developed and NAD HEENT Reports TM's clear HEENT Narrative: No hemotympanum appreciated. No rhinorrhea present. No epistaxis. No malocclusion. atraumatic; Negative for trauma Tympanic Membrane ED: Yes TM's clear Eyes PERRL and EOMs intact bilaterally General Eye ED: Yes other Other Details: no nystagmus Neck Neck Narrative: No midline tenderness or step-off sign. Mild tenderness palpation of the right upper paraspinal region. Neck is immobilized in a c-collar. Chest Wall inspection of chest normal and palpation of chest normal Chest Narrative: medport in the right anterior chest wall No chest wall crepitus. Resp normal respiratory effort and clear to auscultation bilaterally Cardio regular rhythm and no murmurs GI normal to inspection, nondistended, normoactive bowel sounds and non-tender Back/Spine normal to inspection and no thoracic nor lumbar tenderness Extremity full ROM Extremity Narrative: No obvious deformity. No pain with logroll of the lower extremities. Pelvis is stable. Patient has diffuse tenderness of the left shoulder but is able to go through passive range of motion of the shoulder. No pinpoint area of tenderness. Normal behavioral therapy coordinator strength bilaterally. Neuro oriented x3, CN's II-XII intact bilaterally, moves all extremities and no focal motor deficits Julio Coma Scale: document GCS findings Spontaneous Obeys Commands Oriented 15 Psych mental status grossly normal and thought process normal Skin no rashes or lesions noted and no wounds MDM MDM MDM Narrative Medical decision making narrative: Patient is a 31-year-old female with history of myasthenia gravis, DVT and long- term anticoagulation on Eliquis presenting after fall down a flight of stairs. She is complaining of headache, dizziness, neck pain, left shoulder pain and ri ght hip pain. ATLS protocol was followed and she has her ABCs intact. Her GCS is 15. CT of the head and C-spine obtained to rule out acute intracranial process with patient is at higher risk of given her long-term anticoagulation as well as C-spine fracture. These are negative for acute process. In addition x- ray of her chest, left shoulder and right hip obtained. The independently interpreted by myself as well as radiology and do not show any acute process. Patient's urinalysis does not show any hematuria do have low suspicion for any abdominal pelvic trauma based on physical exam. I do not think she require advanced imaging of the chest abdomen or pelvis. CMP is unremarkable and her test is negative. CBC is normal with no signs of thrombocytopenia or anemia. Her PTT is elevated which is consistent with her Eliquis use. Patient is initially given morphine, Zofran and IV fluids for symptom control in the ER. On repeat evaluation she continues to complain of shoulder pain however her passive and active range of motion is intact. I do not suspect any dislocation, subluxation or fracture. Is possible she has a contusion versus strain to her shoulder. She is able to ambulate in the emergency room. She is now complaining of continued headache and dizziness. She has a normal neurologic exam and I suspect she has a concussion versus some peripheral vertigo associated with her head injury today. Given her normal neurologic exam I have a lower suspicion for blunt cerebrovascular injury. Patient is given diazepam for her dizziness and then Solu-Medrol and additional fluids for her headache. As she is anticoagulated I do not want to give her NSAIDs and she has had a reaction to Compazine for headaches. On repeat evaluation she is improving. She is given a dose of [place] for further muscle skeletal pain and is prescribed a short course of [place] as well as meclizine for her symptoms. She is given referral to orthopedics for her shoulder and hip pain as well as ENT if vertigo persist. She has a neurologist that she will follow-up with a call tomorrow. She is given return precautions as well as concussion care. Patient and mother verbalized agreement and understand this plan. Patient discharged home in stable condition. Lab Data Labs: Laboratory Results - last 24 hr 05/27/22 05/27/22 05/27/22 11:15 11:15 11:15 WBC 7.5 RBC 4.63 Hgb 12.6 Hct 39.2 MCV 84.7 MCH 27.2 MCHC 32.1 RDW Std Deviation 43.0 RDW Coeff of Mariella 13.9 Plt Count 241 MPV 9.3 Immature Gran % (Auto) 0.300 Neut % (Auto) 70.1 H Lymph % (Auto) 20.2 [place] % (Auto) 7.4 Eos % (Auto) 1.5 Baso % (Auto) 0.5 Absolute Neuts (auto) 5.2 Absolute Lymphs (auto) 1.51 Nucleated RBC % 0 PT INR APTT Sodium 139 Potassium 3.6 Chloride 112 H Carbon Dioxide 20.0 L Anion Gap 7 BUN 7 Creatinine 0.65 Estim Creat Clear Calc 97.36 Est GFR (MDRD) Af Amer 134 Est GFR (MDRD) Non-Af 111 BUN/Creatinine Ratio 10.7 Glucose 103 Calcium 8.8 Total Bilirubin 0.30 Direct Bilirubin 0.09 AST 11 L ALT 18 Alkaline Phosphatase 77 Total Protein 7.0 Albumin 3.5 Globulin 3.5 Serum , Qual NEGATIVE Urine Color Urine Clarity Urine pH Ur Specific [place] Urine Protein Urine Glucose (UA) Urine Ketones Urine Occult Blood Urine Nitrite Urine Bilirubin Urine Urobilinogen Ur Leukocyte Esterase Urine RBC Urine WBC Ur Squamous Epith Cells Urine Bacteria Urine Mucus 05/27/22 05/27/22 11:15 11:30 WBC RBC Hgb Hct MCV MCH MCHC RDW Std Deviation RDW Coeff of Mariella Plt Count MPV Immature Gran % (Auto) Neut % (Auto) Lymph % (Auto) [place] % (Auto) Eos % (Auto) Baso % (Auto) Absolute Neuts (auto) Absolute Lymphs (auto) Nucleated RBC % PT 13.5 INR 1.1 APTT 101.1 H* Sodium Potassium Chloride Carbon Dioxide Anion Gap BUN Creatinine Estim Creat Clear Calc Est GFR (MDRD) Af Amer Est GFR (MDRD) Non-Af BUN/Creatinine Ratio Glucose Calcium Total Bilirubin Direct Bilirubin AST ALT Alkaline Phosphatase Total Protein Albumin Globulin Serum , Qual Urine Color Yellow Urine Clarity Sl. Cloudy Urine pH 8.0 Ur Specific [place] 1.010 Urine Protein Negative Urine Glucose (UA) Normal Urine Ketones Negative Urine Occult Blood Negative Urine Nitrite Negative Urine Bilirubin Negative Urine Urobilinogen Normal Ur Leukocyte Esterase 25 H Urine RBC 0 SEEN Urine WBC 0-5 SEEN Ur Squamous Epith Cells 0 SEEN Urine Bacteria 0 SEEN Urine Mucus 0 SEEN Radiography Diagnostic Testing: Clinical Impression(s) from Imaging Studies Hip/Pelvis X-Ray 05/27/22 10:53 IMPRESSION: Normal x-ray examination of the pelvis and hip. Electronically Signed: Mitchel Conrad MD at 12:20 EST , Shoulder X-Ray 05/27/22 10:53 IMPRESSION: Normal x-ray examination of the shoulder. Electronically Signed: Mitchel Conrad MD at 12:21 EST , Brain CT 05/27/22 10:54 IMPRESSION: Normal unenhanced CT scan of the brain. Electronically Signed: Mitchel Conrad MD at 11:58 EST , Cervical Spine CT 05/27/22 10:54 IMPRESSION: Normal unenhanced CT examination of the cervical spine. Electronically Signed: Mitchel Conrad MD at 12:00 EST Reading Location ID and State: [id number] / [employer] , Service support , Chest X-Ray 05/27/22 10:54 IMPRESSION: Normal x-ray examination of the chest. Electronically Signed: Mitchel Conrad MD at 12:19 EST , Discharge Plan Triage Chief Complaint: Fall Other Complaint: Other, Pain/Inj ED Provider: Shauna Peck Dx/Rx/DC Orders Clinical Impression: Closed head injury, Fall down stairs, Acute pain of left shoulder due to trauma, Anticoagulant long-term use, Dizziness, Acute pain of left shoulder Instructions: ED Concussion, ED Head Injury (Adult), ED Vertigo, Unspecified Prescriptions: New hydrocodone-acetaminophen 5-325 mg tablet 1 tab PO Q6H PRN PRN (Reason: Pain) 3 Days Qty: 10 0RF meclizine 25 mg tablet 25 mg PO 4X/DAY PRN PRN (Reason: Dizziness) Qty: 20 0RF No Action zonisamide 100 capsule 200 mg PO 0800 Label Comments: seizures lorazepam 1 MG tablet 1 mg PO DAILY PRN PRN (Reason: Seizure) Label Comments: seizures zonisamide 100 MG capsule 300 mg PO QHS Label Comments: seizures ropinirole 0.5 MG tablet 1 mg PO QHS oxcarbazepine 150 mg tablet 150 mg PO QHS Mirena 20 mcg/24 hours (6 yrs) 52 mg Intrauterine Device 20 mcg INTRAUTERINE UD Label Comments: already placed lamotrigine 200 mg tablet extended release 24hr 100 mg PO 0800 Label Comments: take 1 tablet by mouth once daily lamotrigine 250 mg tablet extended release 24hr 250 mg PO QHS Label Comments: take 1 tablet by mouth once daily at bedtime ferrous sulfate [iron] 325 mg (65 mg iron) Tablet 325 mg PO DAILY Eliquis 5 mg tablet 5 mg PO BID Label Comments: TAKE 2 TABLETS BY MOUTH TWICE DAILY FOR 7 DAYS, THEN TAKE 1 TABLET TWICE DAILY escitalopram oxalate [Lexapro] 10 mg Tablet 10 mg PO QHS Ultomiris Rx Instructions: q 8 weeks Primary Care Provider: Soha Perdomo Referrals: Aman Khan MD [Med Staff - Courtesy Staff] - As Needed (for vertigo) Soha Perdomo MD [Primary Care Provider] - Duong Ramos MD [Med Staff - Active Staff] - 3-5 Days if not improving Disposition Disposition: Home, Self Care Discharge Date/Time: 05/27/22 16:17
[2022-05-27] MEDS: 0.9% Normal Saline 1,000 ML 999 ML IV (11:13)
[2022-05-27] MEDS: Morphine 4 MG/ML Syringe IV (11:13)
[2022-05-27] MEDS: Ondansetron 4 MG/2 ML Vial IV (11:13)
[2022-05-27 11:25] LABS: Absolute Lymphocyte Count 1.51 X10^3/uL (0.83-4.51); Absolute Neutrophil Count 5.2 X10^3/uL (2.0-7.7); Basophil# 0.04 X10^3/uL; Basophil% 0.5 % (0-1); Eosinophil# 0.11 X10^3/uL; Eosinophils% 1.5 % (0-5); Hematocrit 39.2 % (37-47); Hemoglobin 12.6 g/dL (12.0-15.0); Lymphocyte # 1.51 X10^3/ul (0.83-4.51); Lymphocyte % 20.2 % (19-41); Mean Corp Hgb Conc 32.1 g/dL (32-36); Mean Corpuscular Hgb 27.2 pg (27.0-32.0); Mean Corpuscular Volume 84.7 fL (81-99); Mean Platelet Vol. 9.3 fl (6.2-12.0); Monocyte# 0.55 X10^3/uL; Monocyte% 7.4 % (0-10); NRBC Flagged by Analyzer 0 % (0-5); Neutrophil # 5.23 X10^3/uL (2.7-7.7); Neutrophil % 70.1 % (47-70); Platelet Count 241 K/mm3 (150-450); RBC Distribution Width CV 13.9 % (11.6-14.6); Red Blood Count 4.63 M/mm3 (4.2-5.4); White Blood Count 7.5 K/mm3 (4.4-11.0)
[2022-05-27 11:33] LABS: Internal QC Validated? YES +Cl - CLEAR BKGD; Pregnancy, Serum, hCG Quali. NEGATIVE Negative
[2022-05-27 11:39] LABS: Bacteria 0 SEEN /hpf (None Seen); Mucous, Urine 0 SEEN /hpf (<or=2+); Red Blood Cells-Urine 0 SEEN /hpf (0-5); Squamous Epithelial Cells - UA 0 SEEN /hpf (5-10)
[2022-05-27 11:40] LABS: Color, Urine Yellow (Yellow); Glucose, Dipstick Normal (Normal); Ketone-Dipstick Negative (Negative); Occult Blood-Urine Negative /ul (Negative); Urine Bilirubin Dipstick Negative (Negative); Urine Clarity Sl. Cloudy (Clear); Urine Urobilinogen Normal (Normal)
[2022-05-27 11:42] LABS: AST(SGOT) 11 U/L (15-37); Alanine Aminotransfer ALT/SGPT 18 U/L (13-56); Albumin, Serum 3.5 g/dL (3.2-5.0); Alkaline Phosphatase 77 U/L (45-117); Anion Gap 7 (5-15); BUN 7 mg/dL (7-18); BUN/Creat Ratio 10.7 RATIO (10-20); Bilirubin, Direct 0.09 mg/dL (0.00-0.30); Calcium,Total 8.8 mg/dL (8.5-10.1); Chloride 112 mmol/L (98-107); Creatinine, Serum 0.65 mg/dL (0.55-1.02); EST Glomerular Filtration Rate 111 mL/min (>60); Est Glom Filt Rate - Afr Amer 134 mL/min (>60); Estimated Creatinine Clearance 97.36 ml/min; Globulin 3.5 g/dL (2.2-4.2); Glucose 103 mg/dL (74-106); International Normalized Ratio 1.1; Potassium 3.6 mmol/L (3.5-5.1); Prothrombin Time (Protime)PT. 13.5 SECONDS (11.7-14.9); Sodium Level 139 mmol/L (136-145)
[2022-05-27 11:49] LABS: Partial Thromboplast Time 101.1 Seconds (24.1-36.2)
[2022-05-27 11:54] LABS: Leukocyte Esterase-Dipstick 25 /ul (Negative); Nitrite-Dipstick Negative (Negative); Protein-Dipstick Negative (Negative)
[2022-05-27 11:59] LABS: White Blood Cells 0-5 SEEN /hpf (0-5)
[2022-05-27 13:15] VITALS: BP 103/66; PULSE 74; RESP 15; O2SAT 99
[2022-05-27] MEDS: diazePAM 5 MG Tablet PO (13:48)
[2022-05-27] MEDS: MethylPREDNISolone 125 MG/2 ML Vial IV (13:48)
[2022-05-27] MEDS: 0.9% Normal Saline 1,000 ML 250 ML IV (13:51)
[2022-05-27] MEDS: HYDROcodone Bitartrate/Apap 5/325 Tablet PO (16:02)
== END 2022-05-27 16:17 | disposition home or self-care (01) ==
PROVIDERS: Emergency Provider Emergency Medicine; PCP Internal Medicine; Visit Provider Emergency Medicine
DX: S09.90XA Unspecified injury of head, initial encounter (principal); G70.00 Myasthenia gravis without (acute) exacerbation; G40.909 Epilepsy, unspecified, not intractable, without status epilepticus; S49.92XA Unspecified injury of left shoulder and upper arm, initial encounter; Z79.01 Long term (current) use of anticoagulants; M25.551 Pain in right hip; G43.909 Migraine, unspecified, not intractable, without status migrainosus; R42 Dizziness and giddiness; W10.9XXA Fall (on) (from) unspecified stairs and steps, initial encounter
CPT/HCPCS: 36591; 70450; 71045; 72125; 73030; 73502; 80048; 80076; 81001; 84703; 85025; 85610; 85730; 93005; 96361; 96374; 96375; 99285; J7030; P9612; A4216; J2405

== ENCOUNTER 2022-07-17 14:23 | Emergency (ER) | payer MEDICARE, MEDICAID, SELFPAY ==
[2022-07-17 14:24] VITALS: BP 117/74; PULSE 91; RESP 16; TEMP 36.6; O2SAT 99; BMI 31.6
[2022-07-17 15:26] LABS: Bacteria 0 SEEN /hpf (None Seen); Mucous, Urine 0 SEEN /hpf (<or=2+); Red Blood Cells-Urine 0 SEEN /hpf (0-5); White Blood Cells 0 SEEN /hpf (0-5)
[2022-07-17 15:39] LABS: Absolute Lymphocyte Count 1.79 X10^3/uL (0.83-4.51); Absolute Neutrophil Count 5.5 X10^3/uL (2.0-7.7); Basophil# 0.04 X10^3/uL; Basophil% 0.5 % (0-1); Eosinophil# 0.12 X10^3/uL; Eosinophils% 1.5 % (0-5); Hematocrit 41.8 % (37-47); Hemoglobin 13.6 g/dL (12.0-15.0); Lymphocyte # 1.79 X10^3/ul (0.83-4.51); Lymphocyte % 22.2 % (19-41); Mean Corp Hgb Conc 32.5 g/dL (32-36); Mean Corpuscular Hgb 27.7 pg (27.0-32.0); Mean Corpuscular Volume 85.1 fL (81-99); Mean Platelet Vol. 10.1 fl (6.2-12.0); Monocyte# 0.56 X10^3/uL; NRBC Flagged by Analyzer 0 % (0-5); Neutrophil # 5.51 X10^3/uL (2.7-7.7); Neutrophil % 68.4 % (47-70); Platelet Count 249 K/mm3 (150-450); RBC Distribution Width CV 13.5 % (11.6-14.6); Red Blood Count 4.91 M/mm3 (4.2-5.4); White Blood Count 8.1 K/mm3 (4.4-11.0)
[2022-07-17 15:49] LABS: Color, Urine Yellow (Yellow); Glucose, Dipstick Normal (Normal); Ketone-Dipstick 5 mg/dl (Negative); Leukocyte Esterase-Dipstick 25 /ul (Negative); Nitrite-Dipstick Negative (Negative); Occult Blood-Urine 10 /ul (Negative); Protein-Dipstick Negative (Negative); Urine Bilirubin Dipstick Negative (Negative); Urine Clarity Clear (Clear); Urine Urobilinogen Normal (Normal)
[2022-07-17 15:56] LABS: Anion Gap 8 (5-15); BUN 8 mg/dL (7-18); BUN/Creat Ratio 10.8 RATIO (10-20); Calcium,Total 9.4 mg/dL (8.5-10.1); Chloride 111 mmol/L (98-107); Creatinine, Serum 0.74 mg/dL (0.55-1.02); EST Glomerular Filtration Rate 95 mL/min (>60); Est Glom Filt Rate - Afr Amer 115 mL/min (>60); Estimated Creatinine Clearance 85.52 ml/min; Glucose 89 mg/dL (74-106); Potassium 3.4 mmol/L (3.5-5.1); Sodium Level 140 mmol/L (136-145)
[2022-07-17 16:05] LABS: Squamous Epithelial Cells - UA 0-5 SEEN /hpf (5-10)
--- NOTE | 2022-07-17 16:11 | EKG12_ITS ---
Test Reason : ABDOMINAL PAIN Blood Pressure : / mmHG Vent. Rate : 083 BPM Atrial Rate : 083 BPM P-R Int : 184 ms QRS Dur : 082 ms QT Int : 364 ms P-R-T Axes : 048 -06 031 degrees QTc Int : 427 ms Normal sinus rhythm Nonspecific T wave abnormality Abnormal ECG Confirmed by SVITLANA SALGADO, PEREZ ([id number]), editor map SALOME MENJIVAR ([id number]) on 07/20/2022 12:28:24 P M Referred By: Confirmed By:MARINA SHANE MD
--- NOTE | 2022-07-17 16:12 | EX.ED.DYSGE1 ---
HPI History of Present Illness Chief Complaint: Abd Pain Informant: patient Onset/Context/Timing Onset: Days Context: Gradual Onset Narrative Narrative: Patient present secondary to upper abdominal pain. She states she went to the urgent care several days ago with chest congestion and thought she was getting a cold. Her work-up was unremarkable and she was advised to come back if she did not feel better. She states her chest congestion seems to be better but she now has developed upper abdominal pain that goes from the epigastric area around to the left flank region. She states she does have pain that radiates up around her left breast and into her chest. She feels like she cannot get a deep breath. She states internally she feels warm and as if she is having chills, but she has not had a fever when she checked her temperature. She denies urinary symptoms. [facility] Medical History Anemia Chest pain Difficulty chewing Difficulty swallowing History of stress test Hx of peripheral vascular disease Injury of head and neck Leg cramps Migraine headache Myasthenia gravis Non-smoker Normal echocardiogram (~05/18/16) Seizures Shortness of breath on exertion Home Medications zonisamide 100 mg capsule 200 mg PO 0800 seizures 12/23/17 [History Last Taken 10/17/21] lorazepam 1 mg tablet 1 mg PO DAILY PRN PRN Seizure 01/07/18 [History Last Taken 05/03/18] zonisamide 100 mg capsule 300 mg PO QHS seizures 03/26/19 [History Last Taken 11/01/20 20:00] ropinirole 0.5 mg tablet 1 mg PO QHS spasms 10/06/19 [History Last Taken 11/01/20 20:00] lamotrigine 200 mg tablet,extended release 24 hr 100 mg PO 0800 seizures 10/14/20 [History Last Taken 10/17/21] lamotrigine 250 mg tablet,extended release 24 hr 250 mg PO QHS seizures 10/14/20 [History Last Taken 11/01/20 20:00] levonorgestrel 21 mcg/24 hours (8 yrs) 52 mg intrauterine device (Mirena) 20 mcg intrauterine UD control 10/14/20 [History Last Taken Unknown] oxcarbazepine 150 mg tablet 150 mg PO QHS SEIZURES 10/14/20 [History Last Taken 11/01/20 20:00] apixaban 5 mg tablet (Eliquis) 5 mg PO BID blood clot 11/02/20 [History Last Taken 10/13/21] ferrous sulfate 325 mg (65 mg iron) tablet (iron) 325 mg PO DAILY anemia 11/02/20 [History Last Taken 11/01/20 08:00] escitalopram oxalate 10 mg tablet (Lexapro) 10 mg PO QHS 10/09/21 [History Last Taken Unknown] Ultomiris 02/05/22 [History Last Taken Unknown] hydrocodone-acetaminophen 5-325mg 5mg-325mg 1 tab PO Q6H PRN PRN Pain 3 days #10 TABLETS 05/27/22 [Rx Last Taken Unknown] meclizine 25 mg tablet 25 mg PO 4X/DAY PRN PRN Dizziness #20 tabs 05/27/22 [Rx Last Taken Unknown] Allergy/AdvReac Type Severity Reaction Status Date / Time levetiracetam [From Keppra] Allergy Other Verified 07/17/22 14:25 Penicillins Allergy Rash Verified 07/17/22 14:25 phenytoin [From Dilantin] Allergy PT UNSURE Verified 07/17/22 14:25 OF REACTION prochlorperazine Allergy Other Verified 07/17/22 14:25 [From Compazine] shellfish derived Allergy Other Verified 07/17/22 14:25 soy AdvReac NEEDS Verified 07/17/22 14:25 FOLLOW-UP Surgical History Hx of appendectomy Hx of thymectomy Hx of total hip arthroplasty Social History household members: spouse Smoking Status: Never smoker second hand exposure: Yes alcohol intake: never substance use type: does not use ROS ROS ED Constitutional Constitutional ED: Reports chills, fever(s), subjective and other Details: No measured fever. Eyes Eyes: Denies change in vision or discharge from eye(s) ENT ENT ED: Denies discharge from eye(s), rhinorrhea or sore throat Cardiovascular Cardiovascular: Denies chest pain or palpitations Respiratory/Chest Respiratory/Chest: Reports dyspnea; Denies cough Gastrointestinal Gastrointestinal: Reports abdominal pain and nausea; Denies diarrhea or vomiting Genitourinary Genitourinary ED: Denies difficulty urinating or dysuria Musculoskeletal Musculoskeletal: Reports back pain; Denies extremity pain Integumentary Denies Abrasions or rash Neurologic Neurologic: Denies headache(s) or weakness Psychiatric Psychiatric: Denies anxiety or depression Allergic/Immunologic Allergic/Immunologic ED: Denies lip swelling or urticaria EXAM Physical Exam Const Vital Signs: 07/17/22 14:24 07/17/22 17:20 Temperature 98 F Temperature Source Temporal Pulse Rate 91 82 Respiratory Rate 16 13 Blood Pressure 117/74 127/86 H Blood Pressure Mean 88 99 Pulse Ox 99 97 Oxygen Delivery Method Room Air Room Air Positive well nourished and well developed General Appearance ED: well developed HEENT Reports normocephalic and head/scalp atraumatic Eyes PERRL and EOMs intact bilaterally Neck supple Chest Wall inspection of chest normal and palpation of chest normal Resp normal respiratory effort and clear to auscultation bilaterally Cardio regular rate and regular rhythm GI GI Narrative: Hypoactive bowel sounds noted. Periumbilical/epigastric tenderness with no guarding or rebound. Palpation: soft Back/Spine General Back: CVA tenderness left Extremity normal to inspection Neuro oriented x3 and no sensory deficits noted Sensorium / Orientation: alert Motor Exam: strength 5/5 throughout Psych mental status grossly normal Skin no rashes or lesions noted MDM MDM MDM Narrative Medical decision making narrative: Labwork obtained to evaluate for leukocytosis, anemia, and electrolyte derangement. Urinalysis obtained to evaluate for infection/hematuria. Chest x-ray obtained given pain radiating into the chest along with a EKG. CT scan of the abdomen and pelvis with IV contrast ordered given her pain. Patient was treated with morphine and Zofran. Lab Data Attestation: I reviewed the patient's lab results. Labs: Laboratory Results - last 24 hr 07/17/22 07/17/22 07/17/22 15:20 15:20 15:20 WBC 8.1 RBC 4.91 Hgb 13.6 Hct 41.8 MCV 85.1 MCH 27.7 MCHC 32.5 RDW Std Deviation 42.0 RDW Coeff of Mariella 13.5 Plt Count 249 MPV 10.1 Immature Gran % (Auto) 0.400 Neut % (Auto) 68.4 Lymph % (Auto) 22.2 [place] % (Auto) 7.0 Eos % (Auto) 1.5 Baso % (Auto) 0.5 Absolute Neuts (auto) 5.5 Absolute Lymphs (auto) 1.79 Nucleated RBC % 0 D-Dimer Quant (PE/DVT) Sodium 140 Potassium 3.4 L Chloride 111 H Carbon Dioxide 21.0 Anion Gap 8 BUN 8 Creatinine 0.74 Estim Creat Clear Calc 85.52 Est GFR (MDRD) Af Amer 115 Est GFR (MDRD) Non-Af 95 BUN/Creatinine Ratio 10.8 Glucose 89 Calcium 9.4 Total Bilirubin Direct Bilirubin AST ALT Alkaline Phosphatase Troponin I High Sens Total Protein Albumin Globulin Lipase Serum , Qual Urine Color Yellow Urine Clarity Clear Urine pH 5.0 Ur Specific [place] 1.010 Urine Protein Negative Urine Glucose (UA) Normal Urine Ketones 5 H Urine Occult Blood 10 H Urine Nitrite Negative Urine Bilirubin Negative Urine Urobilinogen Normal Ur Leukocyte Esterase 25 H Urine RBC 0 SEEN Urine WBC 0 SEEN Ur Squamous Epith Cells 0-5 SEEN Urine Bacteria 0 SEEN Urine Mucus 0 SEEN 07/17/22 07/17/22 07/17/22 15:20 15:20 16:20 WBC RBC Hgb Hct MCV MCH MCHC RDW Std Deviation RDW Coeff of Mariella Plt Count MPV Immature Gran % (Auto) Neut % (Auto) Lymph % (Auto) [place] % (Auto) Eos % (Auto) Baso % (Auto) Absolute Neuts (auto) Absolute Lymphs (auto) Nucleated RBC % D-Dimer Quant (PE/DVT) < 0.27 L Sodium Potassium Chloride Carbon Dioxide Anion Gap BUN Creatinine Estim Creat Clear Calc Est GFR (MDRD) Af Amer Est GFR (MDRD) Non-Af BUN/Creatinine Ratio Glucose Calcium Total Bilirubin 0.40 Direct Bilirubin 0.06 AST 15 ALT 19 Alkaline Phosphatase 92 Troponin I High Sens 3 Total Protein 7.6 Albumin 4.2 Globulin 3.4 Lipase 161 Serum , Qual NEGATIVE Urine Color Urine Clarity Urine pH Ur Specific [place] Urine Protein Urine Glucose (UA) Urine Ketones Urine Occult Blood Urine Nitrite Urine Bilirubin Urine Urobilinogen Ur Leukocyte Esterase Urine RBC Urine WBC Ur Squamous Epith Cells Urine Bacteria Urine Mucus Radiography Diagnostic Testing: Clinical Impression(s) from Imaging Studies Abdomen/Pelvis CT 07/17/22 17:20 IMPRESSION: (NOT LISTED IN ORDER OF SIGNIFICANCE) Constipation. Other findings as above. Electronically Signed: Siva To MD at 18:34 EDT , Chest X-Ray 07/17/22 17:21 IMPRESSION: No acute findings in the chest. Electronically Signed: Siva To MD at 17:38 EDT , Treatment and Re-Evaluation :: CBC unremarkable. Chemistry studies normal other than potassium slightly low at 3.4. LFTs and lipase normal. D-dimer is less than 0.27. test is negative. Urinalysis reveals no sign of acute infection. Chest x-ray per my interpretation reveals port to be in place with no acute findings. Radiology interpretation is reviewed and agrees. CT scan of the abdomen and pelvis reveals constipation with no other acute findings. Patient states that she has had problems with constipation. She had a colonoscopy in April and takes 2 scoops of MiraLAX every morning. Given the degree of constipation she has currently we will give her a bottle of GoLytely to take this weekend to get herself cleaned out. Return instructions were provided. Discharge Plan Triage Chief Complaint: Abd Pain ED Provider: Lesly Poasda Dx/Rx/DC Orders Clinical Impression: Abdominal pain, Constipation Instructions: ED Constipation (Adult) Prescriptions: No Action zonisamide 100 capsule 200 mg PO 0800 Label Comments: seizures lorazepam 1 MG tablet 1 mg PO DAILY PRN PRN (Reason: Seizure) Label Comments: seizures zonisamide 100 MG capsule 300 mg PO QHS Label Comments: seizures ropinirole 0.5 MG tablet 1 mg PO QHS oxcarbazepine 150 mg tablet 150 mg PO QHS Mirena 20 mcg/24 hours (6 yrs) 52 mg Intrauterine Device 20 mcg INTRAUTERINE UD Label Comments: already placed lamotrigine 200 mg tablet extended release 24hr 100 mg PO 0800 Label Comments: take 1 tablet by mouth once daily lamotrigine 250 mg tablet extended release 24hr 250 mg PO QHS Label Comments: take 1 tablet by mouth once daily at bedtime ferrous sulfate [iron] 325 mg (65 mg iron) Tablet 325 mg PO DAILY Eliquis 5 mg tablet 5 mg PO BID Label Comments: TAKE 2 TABLETS BY MOUTH TWICE DAILY FOR 7 DAYS, THEN TAKE 1 TABLET TWICE DAILY escitalopram oxalate [Lexapro] 10 mg Tablet 10 mg PO QHS Ultomiris Rx Instructions: q 8 weeks hydrocodone-acetaminophen 5-325 mg tablet 1 tab PO Q6H PRN PRN (Reason: Pain) 3 Days Qty: 10 0RF meclizine 25 mg tablet 25 mg PO 4X/DAY PRN PRN (Reason: Dizziness) Qty: 20 0RF Primary Care Provider: Soha Perdomo Referrals: Soha Perdomo MD [Primary Care Provider] - 1 Week if not improving Disposition Disposition: Home, Self Care
[2022-07-17 16:47] LABS: Internal QC Validated? YES +Cl - CLEAR BKGD; Pregnancy, Serum, hCG Quali. NEGATIVE Negative
[2022-07-17 16:54] LABS: D-Dimer Quantitative (DVT/PE) < 0.27 FEU/ug/m (0.27-0.49)
[2022-07-17 17:06] LABS: AST(SGOT) 15 U/L (15-37); Alanine Aminotransfer ALT/SGPT 19 U/L (13-56); Albumin, Serum 4.2 g/dL (3.2-5.0); Alkaline Phosphatase 92 U/L (45-117); Bilirubin, Direct 0.06 mg/dL (0.00-0.30); Globulin 3.4 g/dL (2.2-4.2); Lipase 161 U/L (73-393); Protein, Total 7.6 g/dL (6.4-8.2); Troponin-I HS 3 pg/mL (3.0-54.0)
[2022-07-17] MEDS: Ondansetron 4 MG/2 ML Vial IV (17:14)
[2022-07-17] MEDS: Morphine 4 MG/ML Syringe IV (17:14)
[2022-07-17] MEDS: 0.9% Normal Saline 1,000 ML 150 ML IV (17:15)
[2022-07-17 17:20] VITALS: BP 127/86; PULSE 82; RESP 13; O2SAT 97
--- NOTE | 2022-07-17 17:20 | CT_ITS ---
STUDY: CT Abdomen And Pelvis W/ Contrast Injection 07/17/2022 6:32 PM REASON FOR EXAM: Female, 31 years old. ABDOMINAL PAIN abdominal pain TECHNIQUE: Transaxial images were obtained without oral contrast, and with IV 100mL Isovue-300 intravenous contrast. Individualized dose optimization techniques were used for this CT. COMPARISON: 03.27.22. FINDINGS: The visualized lung bases are unremarkable. The visualized portions of the heart are within normal limits. Unremarkable liver. Unremarkable gallbladder and extrahepatic biliary system. Unremarkable spleen. Unremarkable pancreas. Unremarkable bilateral adrenal glands. No acute findings of the right kidney. No acute findings of the left kidney. Unremarkable visualized stomach. Unremarkable small intestine. Stool throughout the colon. There is non-visualization of the appendix. There are no acute findings of the abdominal aorta. Unremarkable inferior vena cava. Subcentimeter mesenteric lymph nodes. Unremarkable urinary bladder. Normal visualized uterus. An intrauterine device is identified within the uterus. There is an umbilical hernia containing fat. Unremarkable osseous structures. CT/Abdomen/Pelvis W IV Cont ONLY IMPRESSION: (NOT LISTED IN ORDER OF SIGNIFICANCE) Constipation. Other findings as above. Electronically Signed: Siva To MD at 18:34 EDT ,
--- NOTE | 2022-07-17 17:21 | RAD_ITS ---
EXAM: XR CHEST, 2 VIEWS CLINICAL INDICATION: pain TECHNIQUE: Frontal and lateral views of the chest. This report was created using [employer] report generation technology. COMPARISON: 05.27.22 FINDINGS: LUNGS AND PLEURAL SPACES: Unremarkable. No consolidation or edema. No pneumothorax. No effusion. HEART: Unremarkable. Cardiac silhouette not enlarged. MEDIASTINUM: Central airways and mediastinal contour are unremarkable. BONES/JOINTS: Unremarkable. SOFT TISSUES: Unremarkable. TUBES, LINES AND DEVICES: There is a right Port-A-Cath and/or mediport in place. The tip is in the superior vena caval - atrial junction. RAD/Chest PA and Lateral IMPRESSION: No acute findings in the chest. Electronically Signed: Siva To MD at 17:38 EDT ,
[2022-07-17 18:59] VITALS: BP 114/71; PULSE 78; RESP 16; O2SAT 98
--- NOTE | 2022-07-17 19:28 | ED.RN ---
GO MARCELO GIVEN TO PT TO TAKE HOME
== END 2022-07-17 19:28 | disposition home or self-care (01) ==
PROVIDERS: Emergency Provider Emergency Medicine; PCP Internal Medicine; Visit Provider Emergency Medicine
DX: K59.00 Constipation, unspecified (principal); R07.9 Chest pain, unspecified
CPT/HCPCS: 36591; 71046; 74177; 80048; 80076; 81001; 83690; 84484; 84703; 85025; 85379; 93005; 96361; 96374; 96375; 99285; J7030; Q9967; A4216; J2405

== ENCOUNTER → 2022-07-29 | Outpatient (CLI) | payer MEDICARE, MEDICAID, SELFPAY ==
[2022-07-29 09:40] LABS: Prothrombin Time (Protime)PT. 12.8 SECONDS (11.7-14.9)
== END | disposition home or self-care (01) ==
LOC: LAB 08:22
PROVIDERS: PCP Internal Medicine
DX: G70.00 Myasthenia gravis without (acute) exacerbation (principal)
CPT/HCPCS: 36415; 85610

== ENCOUNTER 2022-08-08 11:00 | Emergency (ER) | payer MEDICARE, MEDICAID, SELFPAY ==
[2022-08-08 11:01] VITALS: BP 126/79; PULSE 115; RESP 16; TEMP 36.9; O2SAT 98; BMI 31.9
--- NOTE | 2022-08-08 12:35 | EX.ED.DYSGE1 ---
HPI History of Present Illness Chief Complaint: Seizure Informant: patient and parent Narrative Narrative: Presented by EMS from home for breakthrough seizure today. History of petit mal and grand mal seizures along with myasthenia gravis. Patient compliant with her medications. She is on 3 medications. Increasing stress from hospitalization for the past 10 days at [facility]. She finished plasmapheresis yesterday prior to discharge with a 10-day course due to myasthenia gravis crisis. She is followed by neurology Dr. Gilmore. Reports with daughter new myasthenia gravis infusion every 8 weeks, however due to billing issues was unable to get her last infusion leading to her crisis. Strength is increased however stress from hospitalization. No cough. No recent vomiting or diarrhea. No urinary symptoms. Recently finished her menstrual period. Status post diazepam per mother she was postictal currently back to baseline. No incontinence of urine. Prior similar symptoms: Yes PFSH [facility] Medical History Anemia Chest pain Difficulty chewing Difficulty swallowing History of stress test Hx of peripheral vascular disease Injury of head and neck Leg cramps Migraine headache Myasthenia gravis Non-smoker Normal echocardiogram (~05/18/16) Seizures Shortness of breath on exertion Home Medications zonisamide 100 mg capsule 200 mg PO 0800 seizures 12/23/17 [History Last Taken 10/17/21] lorazepam 1 mg tablet 1 mg PO DAILY PRN PRN Seizure 01/07/18 [History Last Taken 05/03/18] zonisamide 100 mg capsule 300 mg PO QHS seizures 03/26/19 [History Last Taken 11/01/20 20:00] lamotrigine 200 mg tablet,extended release 24 hr 100 mg PO 0800 seizures 10/14/20 [History Last Taken 10/17/21] lamotrigine 250 mg tablet,extended release 24 hr 200 mg PO QHS seizures 10/14/20 [History Last Taken 11/01/20 20:00] levonorgestrel 21 mcg/24 hours (8 yrs) 52 mg intrauterine device (Mirena) 20 mcg intrauterine UD control 10/14/20 [History Last Taken Unknown] oxcarbazepine 150 mg tablet 150 mg PO QHS SEIZURES 10/14/20 [History Last Taken 11/01/20 20:00] apixaban 5 mg tablet (Eliquis) 5 mg PO BID blood clot 11/02/20 [History Last Taken 10/13/21] escitalopram oxalate 10 mg tablet (Lexapro) 10 mg PO QHS 10/09/21 [History Last Taken Unknown] diazepam 10 mg/spray (0.1 mL) nasal spray (Valtoco) 10 mg intranasal PRN PRN Seizures 08/08/22 [History Last Taken Unknown] Allergy/AdvReac Type Severity Reaction Status Date / Time levetiracetam [From Keppra] Allergy Other Verified 07/17/22 14:25 Penicillins Allergy Rash Verified 07/17/22 14:25 phenytoin [From Dilantin] Allergy PT UNSURE Verified 07/17/22 14:25 OF REACTION prochlorperazine Allergy Other Verified 07/17/22 14:25 [From Compazine] shellfish derived Allergy Other Verified 07/17/22 14:25 soy AdvReac NEEDS Verified 07/17/22 14:25 FOLLOW-UP Surgical History Hx of appendectomy Hx of thymectomy Hx of total hip arthroplasty Social History household members: spouse Smoking Status: Never smoker second hand exposure: Yes alcohol intake: never substance use type: does not use ROS ROS ED Constitutional Constitutional ED: Denies chills, fever(s) or sweats Eyes Eyes: Denies change in vision ENT ENT ED: Denies dysphagia or sore throat Cardiovascular Cardiovascular: Denies chest pain, leg edema, palpitations or racing heartbeat Respiratory/Chest Respiratory/Chest: Denies cough, dyspnea or dyspnea on exertion Gastrointestinal Gastrointestinal: Denies abdominal pain, diarrhea, nausea or vomiting Genitourinary Genitourinary ED: Denies dysuria, hematuria or urinary frequency Musculoskeletal Musculoskeletal: Denies back pain, extremity pain or neck pain Integumentary Denies rash or wounds Neurologic Neurologic: Reports other Details: Seizure ; Denies headache(s), paresthesias or weakness EXAM Physical Exam Const Vital Signs: 08/08/22 11:01 08/08/22 13:00 Temperature 98.4 F Temperature Source Temporal Pulse Rate 115 H Respiratory Rate 16 Blood Pressure 126/79 H 107/73 Blood Pressure Mean 94 84 Pulse Ox 98 Oxygen Delivery Method Room Air Positive well nourished and well developed General Appearance ED: well developed and NAD HEENT Reports moist mucous membranes HEENT Narrative: Right lateral tongue abrasion no lacerations or active bleeding. normocephalic and atraumatic Eyes PERRL, EOMs intact bilaterally and conjunctivae normal General Eye ED: Yes normal appearance of both eyes Neck no lymphadenopathy and supple General: Negative for tenderness Chest Wall Chest Narrative: Right upper chest Mediport clean, dry intact. Left upper chest dressing removed, small healing ulcer from recent tunnel cath no erythema or drainage. Sutures noted above the left clavicle clean, dry, intact. Chest: Negative for tenderness Resp normal respiratory effort and normal air movement Effort and Inspection: symmetric chest movement; Negative for respiratory distress Cardio regular rate, regular rhythm and no murmurs Peripheral Pulses: pulses 2+ throughout GI normal to inspection, nondistended, normoactive bowel sounds and non-tender Palpation: Negative for guarding or rebound tenderness present Back/Spine no CVA tenderness and no thoracic nor lumbar tenderness Extremity normal to inspection General Extremety ED: Negative for edema or tenderness General Extremity: Negative for edema Neuro oriented x3, CN's II-XII intact bilaterally and no sensory deficits noted Sensorium / Orientation: awake and alert Skin Skin Narrative: See above MDM MDM MDM Narrative Medical decision making narrative: Interventions / MDM: Differential diagnosis: Breakthrough seizure with history of epilepsy Diagnosis considered but do not suspect: N/A My EKG interpretation: N/A Imaging independently reviewed and interpreted by myself: N/A External documents reviewed: N/A Test considered but not ordered:N/A ED course: History of epilepsy breakthrough seizure with evidence of tongue abrasion. She is back to baseline. Labs stable glucose normal sodium normal normal. Urine for infection. Re-evaluation: stable, no recurrent symptoms. She is reassured. She will continue her seizure medications. She will contact her neurologist on Wednesday she has a follow-up on the from her hospitalization. Return precautions. All questions were answered. Disposition discussed with patient/family/significant other: Patient and mother Case discussed with consulting clinician: N/A Lab Data Labs: Laboratory Results - last 24 hr 08/08/22 08/08/22 08/08/22 12:52 13:04 13:04 WBC 11.9 H RBC 4.31 Hgb 12.1 Hct 36.9 L MCV 85.6 MCH 28.1 MCHC 32.8 RDW Std Deviation 43.0 RDW Coeff of Mariella 13.7 Plt Count 255 MPV 9.1 Immature Gran % (Auto) 0.600 Neut % (Auto) 85.0 H Lymph % (Auto) 8.[address] [place] % (Auto) 5.0 Eos % (Auto) 0.9 Baso % (Auto) 0.4 Absolute Neuts (auto) 10.1 H Absolute Lymphs (auto) 0.97 Nucleated RBC % 0 Sodium 139 Potassium 3.7 Chloride 114 H Carbon Dioxide 22.0 Anion Gap 3 L BUN 12 Creatinine 0.66 Estim Creat Clear Calc 100.29 Est GFR (MDRD) Af Amer 133 Est GFR (MDRD) Non-Af 110 BUN/Creatinine Ratio 18.3 Glucose 113 H Calcium 8.9 Urine Color Yellow Urine Clarity Clear Urine pH 8.0 Ur Specific [place] 1.015 Urine Protein Negative Urine Glucose (UA) Normal Urine Ketones Negative Urine Occult Blood Negative Urine Nitrite Negative Urine Bilirubin Negative Urine Urobilinogen Normal Ur Leukocyte Esterase Negative Urine RBC 0 SEEN Urine WBC 0 SEEN Ur Squamous Epith Cells 0-5 SEEN Urine Bacteria 1+ Urine Mucus 0 SEEN Urine Test Negative Discharge Plan Triage Chief Complaint: Seizure ED Provider: Sai Feldman Dx/Rx/DC Orders Clinical Impression: Breakthrough seizure, Epilepsy Instructions: ED Seizure, Recurrent (Adult) Prescriptions: No Action zonisamide 100 capsule 200 mg PO 0800 Label Comments: seizures lorazepam 1 MG tablet 1 mg PO DAILY PRN PRN (Reason: Seizure) Label Comments: seizures zonisamide 100 MG capsule 300 mg PO QHS Label Comments: seizures oxcarbazepine 150 mg tablet 150 mg PO QHS Mirena 20 mcg/24 hours (6 yrs) 52 mg Intrauterine Device 20 mcg INTRAUTERINE UD Label Comments: already placed lamotrigine 200 mg tablet extended release 24hr 100 mg PO 0800 Label Comments: take 1 tablet by mouth once daily lamotrigine 250 mg tablet extended release 24hr 200 mg PO QHS Label Comments: take 1 tablet by mouth once daily at bedtime Eliquis 5 mg tablet 5 mg PO BID Label Comments: TAKE 2 TABLETS BY MOUTH TWICE DAILY FOR 7 DAYS, THEN TAKE 1 TABLET TWICE DAILY escitalopram oxalate [Lexapro] 10 mg Tablet 10 mg PO QHS Valtoco 10 mg/spray (0.1 mL) spray,non-aerosol 10 mg INTRANASAL PRN PRN (Reason: Seizures) Label Comments: USE DIRECTED NASALLY 1 TO 2 TIMES A WEEK Primary Care Provider: Soha Perdomo Referrals: Soha Perdomo MD [Primary Care Provider] - 1 Week Gerald Gilmore MD [Non-Staff] - Keep Hellen appointment Activity Restrictions/Additional Instructions: Labs stable urine negative for infection. Continue your seizure medications. Call Dr. Gilmore's office on Wednesday and keep your scheduled follow-up appointment. Return if worsening symptoms. Disposition Disposition: Home, Self Care Discharge Date/Time: 08/08/22 14:40
[2022-08-08 12:58] LABS: Mucous, Urine 0 SEEN /hpf (<or=2+); Red Blood Cells-Urine 0 SEEN /hpf (0-5); White Blood Cells 0 SEEN /hpf (0-5)
[2022-08-08 13:00] VITALS: BP 107/73
[2022-08-08 13:06] LABS: Color, Urine Yellow (Yellow); Glucose, Dipstick Normal (Normal); Ketone-Dipstick Negative (Negative); Leukocyte Esterase-Dipstick Negative /ul (Negative); Nitrite-Dipstick Negative (Negative); Occult Blood-Urine Negative /ul (Negative); Protein-Dipstick Negative (Negative); Specific Gravity, Urine 1.015 (1.002-1.030); Urine Bilirubin Dipstick Negative (Negative); Urine Clarity Clear (Clear); Urine Urobilinogen Normal (Normal)
[2022-08-08 13:21] LABS: Absolute Lymphocyte Count 0.97 X10^3/uL (0.83-4.51); Absolute Neutrophil Count 10.1 X10^3/uL (2.0-7.7); Basophil# 0.05 X10^3/uL; Basophil% 0.4 % (0-1); Eosinophil# 0.11 X10^3/uL; Eosinophils% 0.9 % (0-5); Hematocrit 36.9 % (37-47); Hemoglobin 12.1 g/dL (12.0-15.0); Lymphocyte # 0.97 X10^3/ul (0.83-4.51); Lymphocyte % 8.1 % (19-41); Mean Corp Hgb Conc 32.8 g/dL (32-36); Mean Corpuscular Hgb 28.1 pg (27.0-32.0); Mean Corpuscular Volume 85.6 fL (81-99); Mean Platelet Vol. 9.1 fl (6.2-12.0); Monocyte# 0.59 X10^3/uL; NRBC Flagged by Analyzer 0 % (0-5); Neutrophil # 10.12 X10^3/uL (2.7-7.7); Platelet Count 255 K/mm3 (150-450); RBC Distribution Width CV 13.7 % (11.6-14.6); Red Blood Count 4.31 M/mm3 (4.2-5.4); White Blood Count 11.9 K/mm3 (4.4-11.0)
[2022-08-08 13:26] LABS: Anion Gap 3 (5-15); BUN 12 mg/dL (7-18); BUN/Creat Ratio 18.3 RATIO (10-20); Calcium,Total 8.9 mg/dL (8.5-10.1); Chloride 114 mmol/L (98-107); Creatinine, Serum 0.66 mg/dL (0.55-1.02); EST Glomerular Filtration Rate 110 mL/min (>60); Est Glom Filt Rate - Afr Amer 133 mL/min (>60); Estimated Creatinine Clearance 100.29 ml/min; Glucose 113 mg/dL (74-106); Potassium 3.7 mmol/L (3.5-5.1); Sodium Level 139 mmol/L (136-145)
[2022-08-08 13:28] LABS: Bacteria 1+ /hpf (None Seen); Internal QC Validated? YES +Cl - CLEAR BKGD; Pregnancy, Urine Negative Negative; Squamous Epithelial Cells - UA 0-5 SEEN /hpf (5-10)
== END 2022-08-08 14:40 | disposition home or self-care (01) ==
PROVIDERS: Emergency Provider Emergency Medicine; PCP Internal Medicine; Visit Provider Emergency Medicine
DX: G40.909 Epilepsy, unspecified, not intractable, without status epilepticus (principal); Z79.899 Other long term (current) drug therapy
CPT/HCPCS: 36591; 80048; 81001; 81025; 85025; 99284; A4216

== ENCOUNTER 2022-09-07 14:03 | Emergency (ER) | payer MEDICARE, MEDICAID, SELFPAY ==
[2022-09-07 14:04] VITALS: BP 116/83; PULSE 110; RESP 16; TEMP 36.4; O2SAT 100; BMI 30.4
[2022-09-07 14:40] VITALS: O2SAT 100
--- NOTE | 2022-09-07 15:42 | EKG12_ITS ---
Test Reason : SOB Blood Pressure : / mmHG Vent. Rate : 078 BPM Atrial Rate : 078 BPM P-R Int : 182 ms QRS Dur : 080 ms QT Int : 364 ms P-R-T Axes : 040 -03 022 degrees QTc Int : 414 ms Normal sinus rhythm Low voltage QRS Borderline ECG Confirmed by SVITLANA SALGADO, PEREZ ([id number]), graphics editor SALOME MENJIVAR ([id number]) on 09/08/2022 1:09:55 PM Referred By: Confirmed By:MARINA SHANE MD
[2022-09-07 16:04] LABS: Absolute Lymphocyte Count 1.67 X10^3/uL (0.83-4.51); Absolute Neutrophil Count 8.6 X10^3/uL (2.0-7.7); Basophil# 0.05 X10^3/uL; Basophil% 0.4 % (0-1); Eosinophil# 0.12 X10^3/uL; Eosinophils% 1.1 % (0-5); Hematocrit 38.5 % (37-47); Hemoglobin 12.4 g/dL (12.0-15.0); Lymphocyte # 1.67 X10^3/ul (0.83-4.51); Mean Corp Hgb Conc 32.2 g/dL (32-36); Mean Corpuscular Hgb 27.7 pg (27.0-32.0); Mean Corpuscular Volume 85.9 fL (81-99); Mean Platelet Vol. 9.3 fl (6.2-12.0); Monocyte# 0.64 X10^3/uL; Monocyte% 5.8 % (0-10); NRBC Flagged by Analyzer 0 % (0-5); Neutrophil % 77.3 % (47-70); Platelet Count 306 K/mm3 (150-450); RBC Distribution Width CV 13.2 % (11.6-14.6); RBC Distribution Width SD 41.1 fl (35.1-43.9); Red Blood Count 4.48 M/mm3 (4.2-5.4); White Blood Count 11.1 K/mm3 (4.4-11.0)
--- NOTE | 2022-09-07 16:10 | RAD_ITS ---
EXAM: XR CHEST, 2 VIEWS CLINICAL INDICATION: None provided. Left-sided chest pain with pleuritic component TECHNIQUE: Frontal and lateral views of the chest. COMPARISON: 07/17/22 FINDINGS: LUNGS AND PLEURAL SPACES: Unremarkable. No consolidation or edema. No pneumothorax. No effusion. HEART: Unremarkable. Cardiac silhouette not enlarged. MEDIASTINUM: Central airways and mediastinal contour are unremarkable. BONES/JOINTS: Unremarkable. SOFT TISSUES: Unremarkable. TUBES, LINES AND DEVICES: There is a right Port-A-Cath and/or mediport in place. The tip is in the superior vena caval - atrial junction. RAD/Chest PA and Lateral IMPRESSION: No acute findings in the chest. Electronically Signed: Siva To MD at 16:38 EDT ,
[2022-09-07 16:22] LABS: D-Dimer Quantitative (DVT/PE) < 0.27 FEU/ug/m (0.27-0.49)
[2022-09-07 16:24] LABS: ALB/GLOB Ratio 1.1 RATIO (0.9-2.4); AST(SGOT) 13 U/L (15-37); Alanine Aminotransfer ALT/SGPT 20 U/L (13-56); Albumin, Serum 3.9 g/dL (3.2-5.0); Alkaline Phosphatase 102 U/L (45-117); Anion Gap 6 (5-15); BUN 10 mg/dL (7-18); BUN/Creat Ratio 13.5 RATIO (10-20); Calcium,Total 9.1 mg/dL (8.5-10.1); Chloride 112 mmol/L (98-107); Creatinine, Serum 0.74 mg/dL (0.55-1.02); EST Glomerular Filtration Rate 95 mL/min (>60); Est Glom Filt Rate - Afr Amer 115 mL/min (>60); Estimated Creatinine Clearance 88.61 ml/min; Globulin 3.4 g/dL (2.2-4.2); Glucose 86 mg/dL (74-106); Potassium 3.7 mmol/L (3.5-5.1); Protein, Total 7.3 g/dL (6.4-8.2); Sodium Level 140 mmol/L (136-145)
[2022-09-07 16:42] VITALS: BP 113/66; PULSE 78; RESP 18; TEMP 35.9; O2SAT 98
[2022-09-07 18:06] VITALS: BP 115/79; RESP 18
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
--- NOTE | 2022-09-07 18:21 | EDS_ITS ---
HPI History of Present Illness Chief Complaint: Nausea/Vomiting Detail of Chief Complaint: Chest discomfort, shortness of breath, motor activity without loss of consc Informant: patient and family ([id number]) Onset/Context/Timing Onset: Today Context: Sudden Onset Timing: Intermittent Quality: Document HPI narrative Location: Multiple locations Current Severity: Mild Maximum Severity: Moderate Worsened by: Chest pain worse with movement and breathing Relieved by: Nothing Associated Symptoms Associated Symptoms: HPI narrative Narrative Narrative: Patient is a 32-year-old woman with history of myasthenia gravis, generalized tonic-clonic seizures as well as petit mall seizures who presents by ambulance because son noted jerking motion of her arm. Patient reported no loss of conscious which is not normal for her with seizure. [id number] states she was not postictal. She also complains of inability to obtain a good breath and pleuritic chest pain with muscular pain on left side of her chest. She does have history of DVT right upper extremity due to port. She is presently on anticoagulant because of the clot. She denies headache. She does report vertical and horizontal diplopia. This may be due to her myasthenia gravis. She was recently admitted for myasthenia gravis crisis and required plasmapheresis. She received recent therapy. This was performed at [facility]. Patient's next dose of medication is in 6 weeks. She also complains of leg pain. She denies history of DVT of the lower extremity. Denies swelling, discoloration. She denies nausea, vomiting diarrhea. She denies fever. She does complain of bifrontal headache. She denies ringing or ears decreased hearing. She denies loss of vision. She denies trouble with speech or swallowing. Prior similar symptoms: No Recent Illness/Hospitalization: Yes [facility] Medical History Anemia Chest pain Difficulty chewing Difficulty swallowing History of stress test Hx of peripheral vascular disease Injury of head and neck Leg cramps Migraine headache Myasthenia gravis Non-smoker Normal echocardiogram (~05/18/16) Seizures Shortness of breath on exertion Home Medications zonisamide 100 mg capsule 200 mg PO 0800 seizures 12/23/17 [History Last Taken 10/17/21] lorazepam 1 mg tablet 1 mg PO DAILY PRN PRN Seizure 01/07/18 [History Last Taken 05/03/18] zonisamide 100 mg capsule 300 mg PO QHS seizures 03/26/19 [History Last Taken 11/01/20 20:00] lamotrigine 200 mg tablet,extended release 24 hr 100 mg PO 0800 seizures 10/14/20 [History Last Taken 10/17/21] lamotrigine 250 mg tablet,extended release 24 hr 200 mg PO QHS seizures 10/14/20 [History Last Taken 11/01/20 20:00] levonorgestrel 21 mcg/24 hours (8 yrs) 52 mg intrauterine device (Mirena) 20 mcg intrauterine UD control 10/14/20 [History Last Taken Unknown] oxcarbazepine 150 mg tablet 150 mg PO QHS SEIZURES 10/14/20 [History Last Taken 11/01/20 20:00] apixaban 5 mg tablet (Eliquis) 5 mg PO BID blood clot 11/02/20 [History Last Taken 10/13/21] escitalopram oxalate 10 mg tablet (Lexapro) 10 mg PO QHS 10/09/21 [History Last Taken Unknown] diazepam 10 mg/spray (0.1 mL) nasal spray (Valtoco) 10 mg intranasal PRN PRN Seizures 08/08/22 [History Last Taken Unknown] Allergy/AdvReac Type Severity Reaction Status Date / Time levetiracetam [From Keppra] Allergy Other Verified 09/07/22 14:38 Penicillins Allergy Rash Verified 09/07/22 14:38 phenytoin [From Dilantin] Allergy PT UNSURE Verified 09/07/22 14:38 OF REACTION prochlorperazine Allergy Other Verified 09/07/22 14:38 [From Compazine] shellfish derived Allergy Other Verified 09/07/22 14:38 soy AdvReac NEEDS Verified 09/07/22 14:38 FOLLOW-UP Surgical History Hx of appendectomy Hx of thymectomy Hx of total hip arthroplasty Social History household members: spouse Smoking Status: Never smoker second hand exposure: Yes alcohol intake: never substance use type: does not use ROS ROS ED Constitutional Constitutional ED: Denies chills, fever(s), subjective, sweats or weight loss Eyes Eyes: Denies blurry vision, change in vision or diplopia ENT ENT ED: Denies ear pain, rhinorrhea or sore throat Cardiovascular Cardiovascular: Reports chest pain; Denies orthopnea, palpitations, paroxysmal nocturnal dyspnea or racing heartbeat Respiratory/Chest Respiratory/Chest: Reports dyspnea; Denies cough, dyspnea on exertion, orthopnea or paroxysmal nocturnal dyspnea Gastrointestinal Gastrointestinal: Reports nausea; Denies abdominal pain, constipation, diarrhea or vomiting Genitourinary Genitourinary ED: Denies dysuria, hematuria or urinary frequency Musculoskeletal Musculoskeletal: Denies arthralgias, back pain, myalgias or neck pain Integumentary Denies Abrasions or rash Neurologic Neurologic: Reports headache(s); Denies paresthesias or weakness Psychiatric Psychiatric: Reports anxiety Hematologic/Lymphatic Hematologic/Lymphatic: Reports systems reviewed and no addt'l complaints, except as documented EXAM Physical Exam Const Vital Signs: 09/07/22 14:04 09/07/22 14:40 09/07/22 16:42 Temperature 97.5 F L 96.6 F L Temperature Source Temporal Temporal Pulse Rate 110 H 78 Respiratory Rate 16 18 Respiratory Effort Normal Non-Labored Respiratory Depth Normal Respiratory Pattern Normal Blood Pressure 116/83 H 113/66 Blood Pressure Mean 94 81 Pulse Ox 100 98 Oxygen Delivery Method Room Air Room Air Room Air 09/07/22 18:06 Temperature Temperature Source Pulse Rate Respiratory Rate 18 Respiratory Effort Respiratory Depth Respiratory Pattern Blood Pressure 115/79 Blood Pressure Mean 91 Pulse Ox Oxygen Delivery Method Room Air Positive well nourished and well developed General Appearance ED: well developed and NAD; Negative for cyanotic, diaphoretic or pallor HEENT Reports moist mucous membranes HEENT Narrative: Head is atraumatic normocephalic. Ears normal. TMs normal. Nares patent. No abnormality noted. Posterior pharynx is normal. Uvula is midline. There is no deep tongue with protrusion. Eyes PERRL and EOMs intact bilaterally Eyes Narrative: There is no nystagmus. There is no APD. General Eye ED: Negative for pale conjunctiva or scleral icterus Neck no lymphadenopathy, supple and no JVD Chest Wall inspection of chest normal and palpation of chest normal Chest Narrative: Pain to palpation anterior axillary line fifth sixth left rib region. Resp normal respiratory effort and clear to auscultation bilaterally Cardio regular rate, regular rhythm, S1 normal heart sound, S2 normal heart sound and no murmurs GI normal to inspection, nondistended, normoactive bowel sounds, non-tender and non-distended Auscultation: normoactive bowel sounds Palpation: soft Back/Spine no CVA tenderness Thoracic Spine / Upper Back: Negative for thoracic spinal tenderness Lumbar Spine / Lower Back: Negative for lumbar spinal tenderness Extremity normal to inspection Extremity Narrative: There is no asymmetry, swelling, discoloration, leg vein distention, palpable cords or tenderness along the distribution of the deep venous system. Furthermore, there is no swelling, discoloration, asymmetry, venous distention upper extremities. Neuro oriented x3, CN's II-XII intact bilaterally and no sensory deficits noted Neuro Narrative: There is no clonus or Babinski sign. There is no dysmetria. Sensorium / Orientation: alert Motor Exam: strength 5/5 throughout Skin no rashes or lesions noted, no wounds and skin turgor normal General Skin Exam: elasticity normal; Negative for jaundice or pallor MDM MDM MDM Narrative Medical decision making narrative: History of DVT upper extremity pleuritic pain and the fact that she is not PERC negative will need to obtain a D-dimer to rule out/assess for PE. Will obtain blood work to assess white count and H&H electrolyte and was obtained to determine if this is explains any of her symptoms. She came out and said that she does have problems with anxiety. This is not her typical seizure. She is scheduled to see Dr. 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 There is no Tensilon available to determine if patient needs more medication. 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 As stated before this may be due to her myasthenia gravis. This will need to be followed up by her neurologist. Lab Data Attestation: I reviewed the patient's lab results. Lab results narrative: White is slightly elevated with normal differential. D-dimer is less than 0.27. Comprehensive metabolic panel is both. Labs: Laboratory Results - last 24 hr 09/07/22 09/07/22 09/07/22 16:00 16:00 16:00 WBC 11.1 H RBC 4.48 Hgb 12.4 Hct 38.5 MCV 85.9 MCH 27.7 MCHC 32.2 RDW Std Deviation 41.1 RDW Coeff of Mariella 13.2 Plt Count 306 MPV 9.3 Immature Gran % (Auto) 0.400 Neut % (Auto) 77.3 H Lymph % (Auto) 15.0 L Sublette % (Auto) 5.8 Eos % (Auto) 1.1 Baso % (Auto) 0.4 Absolute Neuts (auto) 8.6 H Absolute Lymphs (auto) 1.67 Nucleated RBC % 0 D-Dimer Quant (PE/DVT) < 0.27 L Sodium 140 Potassium 3.7 Chloride 112 H Carbon Dioxide 22.0 Anion Gap 6 BUN 10 Creatinine 0.74 Estim Creat Clear Calc 88.61 Est GFR (MDRD) Af Amer 115 Est GFR (MDRD) Non-Af 95 BUN/Creatinine Ratio 13.5 Glucose 86 Calcium 9.1 Total Bilirubin 0.40 AST 13 L ALT 20 Alkaline Phosphatase 102 Total Protein 7.3 Albumin 3.9 Globulin 3.4 Albumin/Globulin Ratio 1.1 Radiography Chest X-Ray - ED: 2 View and Read by ED Physician (2 view chest x-ray was normal cardiac silhouette and size. Lung parenchyma is normal. Perihilar regions normal. Osseous structures are normal.) Diagnostic Testing: Clinical Impression(s) from Imaging Studies Chest X-Ray 09/07/22 16:10 IMPRESSION: No acute findings in the chest. Electronically Signed: Siva To MD at 16:38 EDT Reading Location ID and State: [facility] [place] / [place] , Service support , Treatment and Re-Evaluation :: Patient's heart rate improved without treatment. Discharge Plan Triage Chief Complaint: Nausea/Vomiting ED Provider: Brain Del Castillo Dx/Rx/DC Orders Clinical Impression: Abnormal motor activity, Pleuritic chest pain, Musculoskeletal chest pain, Hx of myasthenia gravis, History of seizure disorder, Diplopia, Anticoagulant long- term use Instructions: ED Pleurisy Prescriptions: No Action zonisamide 100 capsule 200 mg PO 0800 Label Comments: seizures lorazepam 1 MG tablet 1 mg PO DAILY PRN PRN (Reason: Seizure) Label Comments: seizures zonisamide 100 MG capsule 300 mg PO QHS Label Comments: seizures oxcarbazepine 150 mg tablet 150 mg PO QHS Mirena 20 mcg/24 hours (6 yrs) 52 mg Intrauterine Device 20 mcg INTRAUTERINE UD Label Comments: already placed lamotrigine 200 mg tablet extended release 24hr 100 mg PO 0800 Label Comments: take 1 tablet by mouth once daily lamotrigine 250 mg tablet extended release 24hr 200 mg PO QHS Label Comments: take 1 tablet by mouth once daily at bedtime Eliquis 5 mg tablet 5 mg PO BID Label Comments: TAKE 2 TABLETS BY MOUTH TWICE DAILY FOR 7 DAYS, THEN TAKE 1 TABLET TWICE DAILY escitalopram oxalate [Lexapro] 10 mg Tablet 10 mg PO QHS Valtoco 10 mg/spray (0.1 mL) spray,non-aerosol 10 mg INTRANASAL PRN PRN (Reason: Seizures) Label Comments: USE DIRECTED NASALLY 1 TO 2 TIMES A WEEK Primary Care Provider: Soha Perdomo Referrals: Soha Perdomo MD [Primary Care Provider] - 3-5 Days Gerald Gilmore MD [Non-Staff] - Keep [facility] appointment Disposition Disposition: Home, Self Care
== END 2022-09-07 18:45 | disposition home or self-care (01) ==
PROVIDERS: Emergency Provider Emergency Medicine; PCP Internal Medicine; Visit Provider Emergency Medicine
DX: R07.89 Other chest pain (principal); H53.2 Diplopia; Z79.01 Long term (current) use of anticoagulants; Z86.69 Personal history of other diseases of the nervous system and sense organs; Z87.39 Personal history of other diseases of the musculoskeletal system and connective tissue
CPT/HCPCS: 36591; 71046; 80053; 85025; 85379; 93005; 99285; A4216

== ENCOUNTER 2022-10-29 11:09 | Emergency (ER) | payer MEDICARE, MEDICAID, SELFPAY ==
[2022-10-29] VITALS (9 sets, daily range): BP systolic 94–124; BP diastolic 61–82; PULSE 69–107; RESP 14–24; TEMP 36.7; O2SAT 96–100; BMI 32.9
--- NOTE | 2022-10-29 11:36 | EKG12_ITS ---
Test Reason : SEIZERS Blood Pressure : / mmHG Vent. Rate : 090 BPM Atrial Rate : 090 BPM P-R Int : 168 ms QRS Dur : 088 ms QT Int : 358 ms P-R-T Axes : 051 005 061 degrees QTc Int : 437 ms Normal sinus rhythm Normal ECG Confirmed by TEMI SALGADO, KATHE ([id number]), assignment desk editor SALOME MENJIVAR ([id number]) on 11/02/2022 12:58:26 PM Referred By: Confirmed By:KATHE MEMBRENO MD
--- NOTE | 2022-10-29 11:42 | RAD_ITS ---
STUDY: X-RAY CHEST REASON FOR EXAM: Female, 32 years old. Cough. History of seizure. TECHNIQUE: Single AP portable view of the chest. COMPARISON: Comparison is made with prior study dated September 07, 2022. FINDINGS: A right-sided portacatheter is seen with the tip at the junction of the superior vena cava and right atrium. EKG electrodes are seen. Stable elevation of the right hemidiaphragm. The lungs are clear. There is no demonstrated pleural abnormality. Normal size heart. Normal mediastinum and shima. Normal visualized pulmonary arteries. Normal visualized aortic arch and descending thoracic aorta. Normal visualized thoracic spine. Normal visualized ribs, clavicles, and shoulders. There is no demonstrated abnormality of the visualized soft tissue structures of the upper abdomen. RAD/Chest 1 View (Portable) IMPRESSION: No acute abnormality seen. Electronically Signed: Mitchel Conrad MD at 12:26 EDT ,
--- NOTE | 2022-10-29 11:43 | EX.ED.DYSGE1 ---
HPI <BECCA Heart - Last Filed: 10/29/22 14:18> History of Present Illness Chief Complaint: Seizure Narrative Narrative: Patient is a 32-year-old female with history of anxiety, depression, epilepsy since age 11, myasthenia gravis since 2019 who does receive infusions every 8 weeks last infusion was yesterday. Patient takes Lamictal zonisamide oxcarbazepine for seizures. Patient presents to the emergency department for a breakthrough seizure. Patient denies any recent urinary symptoms, patient states that she has been having frequent falls secondary to weakness in her legs however this has been ongoing. She has seen multiple specialist including [facility]. There is concern regarding psychiatric issues versus pathologic issues. Patient is alert and orient x4 on arrival and back to baseline. She is here with her mother. The seizure was witnessed by her father who states that he caught her, patient did not hit the ground. Patient is back to baseline. Last seizure was August 07 and she was brought here. [facility] <BECCA Heart - Last Filed: 10/29/22 14:18> [facility] Medical History Anemia Chest pain Difficulty chewing Difficulty swallowing History of stress test Hx of peripheral vascular disease Injury of head and neck Leg cramps Migraine headache Myasthenia gravis Non-smoker Normal echocardiogram (~05/18/16) Seizures Shortness of breath on exertion Home Medications zonisamide 100 mg capsule 200 mg PO 0800 seizures 12/23/17 [History Last Taken 10/17/21] lorazepam 1 mg tablet 1 mg PO DAILY PRN PRN Seizure 01/07/18 [History Last Taken 05/03/18] zonisamide 100 mg capsule 300 mg PO QHS seizures 03/26/19 [History Last Taken 11/01/20 20:00] lamotrigine 200 mg tablet,extended release 24 hr 100 mg PO 0800 seizures 10/14/20 [History Last Taken 10/17/21] lamotrigine 250 mg tablet,extended release 24 hr 200 mg PO QHS seizures 10/14/20 [History Last Taken 11/01/20 20:00] levonorgestrel 21 mcg/24 hours (8 yrs) 52 mg intrauterine device (Mirena) 20 mcg intrauterine UD control 10/14/20 [History Last Taken Unknown] oxcarbazepine 150 mg tablet 150 mg PO QHS SEIZURES 10/14/20 [History Last Taken 11/01/20 20:00] apixaban 5 mg tablet (Eliquis) 5 mg PO BID blood clot 11/02/20 [History Last Taken 10/13/21] escitalopram oxalate 10 mg tablet (Lexapro) 10 mg PO QHS 10/09/21 [History Last Taken Unknown] diazepam 10 mg/spray (0.1 mL) nasal spray (Valtoco) 10 mg intranasal PRN PRN Seizures 08/08/22 [History Last Taken Unknown] Allergy/AdvReac Type Severity Reaction Status Date / Time levetiracetam [From Keppra] Allergy Other Verified 10/29/22 11:15 Penicillins Allergy Rash Verified 10/29/22 11:15 phenytoin [From Dilantin] Allergy PT UNSURE Verified 10/29/22 11:15 OF REACTION prochlorperazine Allergy Other Verified 10/29/22 11:15 [From Compazine] shellfish derived Allergy Other Verified 10/29/22 11:15 soy AdvReac NEEDS Verified 10/29/22 11:15 FOLLOW-UP Surgical History Hx of appendectomy Hx of thymectomy Hx of total hip arthroplasty Social History household members: spouse Smoking Status: Never smoker second hand exposure: Yes alcohol intake: never substance use type: does not use ROS <BECCA Heart - Last Filed: 10/29/22 14:18> ROS ED ROS Narrative Constitutional: Negative for fever, chills, weight loss. Positive for chronic weakness Eyes: Negative for vision loss, vision change, double vision ENT: Negative for any sore throat, ear pain, congestion Cardiovascular: Negative for any tightness, palpitations. Positive for chest pain Respiratory: Negative for any cough, sputum production, hemoptysis, dyspnea, dyspnea on exertion, orthopnea Gastrointestinal: Negative for any abdominal pain, nausea, vomiting, diarrhea, constipation, blood in stool, blood in vomit : Negative for any urinary frequency, dysuria, retention, blood in urine Muscle skeletal: Negative for any muscle joint pain, stiffness, myalgias, arthralgias, neck pain, back pain Neurological: Negative for any headache, syncope, numbness or tingling, dizziness. Positive for seizures Skin: Negative for any rashes, lumps, itching, abrasions, lacerations Psychiatric: Negative for any depression, anxiety, stress, suicidal ideation, homicidal ideation Hematologic: Negative for any easy bruising, excessive bruising, easy bleeding Allergies: Negative for any eczema, hives, rash EXAM <BECCA Heart - Last Filed: 10/29/22 14:18> Physical Exam Narrative Exam Narrative: Vital signs reviewed. Patient is alert and orient x4, per mom, patient is back to baseline. HEET: Head normocephalic atraumatic, TMs clear bilaterally. Posterior pharynx is clear, moist mucous membranes. Nares clear bilaterally. Pupils equal round reactive light. Neck: Supple with no lymphadenopathy or tenderness. No signs of meningismus, negative jolt sign. Cardiac: Regular rate and rhythm no murmurs gallops or rubs, equal peripheral pulses bilaterally. Respiratory: Lungs clear to auscultation bilaterally. No chest tenderness. Abdomen: Soft, nontender, nondistended. No abdominal bruit or pulsatile masses. No hepatosplenomegaly Extremities: No peripheral edema, no signs of gross trauma or deformity. Active full range of motion of all extremities. Patient does have some noticeable weakness to the lower extremities however he states this is chronic. Neuro: Cranial nerves II through XII intact, no focal neurological deficits. NIH stroke score 0. Skin: Clean dry and intact with no rash, purpura, petechiae, vesicles or pustules. Backs/flank: No CVA tenderness, no midline spinal tenderness, no deformity. Psych: Normal mood and affect. No SI, HI or acute psychosis. Const Vital Signs: 10/29/22 11:10 10/29/22 13:30 10/29/22 14:15 Temperature 98.0 F Temperature Source Oral Pulse Rate 102 H 107 H 107 H Respiratory Rate 16 24 H 20 H Blood Pressure 124/69 H 112/70 105/68 Blood Pressure Mean 87 82 81 Pulse Ox 100 99 100 Oxygen Delivery Method Room Air 10/29/22 14:30 10/29/22 15:01 Temperature Temperature Source Pulse Rate 102 H 83 Respiratory Rate 16 16 Blood Pressure 106/70 94/61 Blood Pressure Mean 82 72 Pulse Ox 100 Oxygen Delivery Method Positive well nourished and well developed General Appearance ED: well developed <Dr. Sai Feldman DO - Last Filed: 10/29/22 16:50> Physical Exam Const Vital Signs: 10/29/22 11:10 10/29/22 13:30 10/29/22 14:15 Temperature 98.0 F Temperature Source Oral Pulse Rate 102 H 107 H 107 H Respiratory Rate 16 24 H 20 H Blood Pressure 124/69 H 112/70 105/68 Blood Pressure Mean 87 82 81 Pulse Ox 100 99 100 Oxygen Delivery Method Room Air 10/29/22 14:30 10/29/22 15:01 Temperature Temperature Source Pulse Rate 102 H 83 Respiratory Rate 16 16 Blood Pressure 106/70 94/61 Blood Pressure Mean 82 72 Pulse Ox 100 Oxygen Delivery Method MDM <BECCA Heart - Last Filed: 10/29/22 14:18> MDM Lab Data Labs: Laboratory Results - last 24 hr 10/29/22 10/29/22 11:23 13:45 WBC 8.1 RBC 4.74 Hgb 12.8 Hct 40.1 MCV 84.6 MCH 27.0 MCHC 31.9 L RDW Std Deviation 40.2 RDW Coeff of Mariella 13.2 Plt Count 299 MPV 9.5 Immature Gran % (Auto) 0.600 Neut % (Auto) 67.2 Lymph % (Auto) 25.1 Winkler % (Auto) 4.8 Eos % (Auto) 1.7 Baso % (Auto) 0.6 Absolute Neuts (auto) 5.4 Absolute Lymphs (auto) 2.02 Nucleated RBC % 0 Sodium 139 Potassium 3.4 L Chloride 108 H Carbon Dioxide 23.0 Anion Gap 8 BUN 10 Creatinine 0.80 Estim Creat Clear Calc 81.97 Est GFR (MDRD) Af Amer 106 Est GFR (MDRD) Non-Af 87 BUN/Creatinine Ratio 12.5 Glucose 135 H Calcium 9.1 Total Bilirubin 0.30 AST 11 L ALT 18 Alkaline Phosphatase 97 Total Protein 7.4 Albumin 3.6 Globulin 3.8 Albumin/Globulin Ratio 0.9 Urine Color Yellow Urine Clarity Sl. Cloudy Urine pH 7.0 Ur Specific Holcomb 1.015 Urine Protein Negative Urine Glucose (UA) Normal Urine Ketones Negative Urine Occult Blood Negative Urine Nitrite Negative Urine Bilirubin Negative Urine Urobilinogen Normal Ur Leukocyte Esterase Negative Urine RBC 0 SEEN Urine WBC 0 SEEN Ur Squamous Epith Cells 0 SEEN Urine Bacteria 0 SEEN Urine Mucus 0 SEEN Urine Test Negative Radiography Diagnostic Testing: Clinical Impression(s) from Imaging Studies Chest X-Ray 10/29/22 11:42 IMPRESSION: No acute abnormality seen. Electronically Signed: Mitchel Conrad MD at 12:26 EDT , Brain CT 10/29/22 12:36 IMPRESSION: Normal unenhanced CT scan of the brain. Electronically Signed: Mitchel Conrad MD at 13:17 EDT , Treatment and Re-Evaluation :: All radiologic examinations were read, reviewed by the emergency department attending. From these reads, a plan of care will be put in place. Patient appears generally well, patient alert orient x4. Patient's neurological dam was unremarkable, his baseline. Patient received some basic laboratory values as well as a chest x-ray, EKG secondary to intermittent chest pain. Vital signs remained stable. Patient be observed. Patient did have a 1 minute to 2-minute grand mal seizure. Patient is now postictal. Patient was given 1 mg of IV Ativan. Patient will need to be CAT scan secondary to recurrent seizure.Patient's laboratory values show a normal CBC, patient's chemistries were unremarkable. Chest x-ray showed no acute abnormality. Patient's chest x-ray, CT scan of the brain were gross unremarkable. No evidence of any bleeding or intracranial hemorrhage. Patient's urinalysis is negative for any infection. Patient will be loaded with Depakote 20 mg/kg as instructed by [facility] neurologist. Patient is excepted to [facility] and is currently waiting a bed. Differential: Recurrent breakthrough seizures, myasthenia gravis, infection Attending note: Patient seen and evaluated with production estimator. I perform my own [id number] evaluation. I agree with the plan of work-up. Here with mother breakthrough seizure this morning. Patient seizure since 11 years old on current Lamictal and zonisamide with no missed doses per mother. Patient from home mother is primary caregiver. Is followed by Dr. Gilmore locally from neurology. Diagnosis of myasthenia gravis [address] [facility] [address] Dee, recently restarted back on her infusions for myasthenia gravis last treatment was yesterday. Patient has been having increasing worsening leg weakness with difficulty walking. Mother reports plans of being referred to another neuromuscular physician for evaluation. This was stated as of yesterday. She was referred to psychiatry for potential psychosomatic disorder. Patient was brought in the ED apparently had another breakthrough seizure before my evaluation. sta. Niesha post Ativan. During my evaluation there is postictal. Moving all 4 extremities. Work-up being initiated with labs repeat CT urine and chest x-ray. Most concerns for recurrent breakthrough seizures which has not happened in the past, will plan to transfer to neurological capable facility. Patient on reevaluation is acting appropriate. The patient will be transferred to [facility]. I was able speak with Dr. Conway who will accept this patient. I spoke with the patient the patient's mother, they are happy with the transfer. The neurologist at [facility] would like me to load the patient up with Depakote 20 mg/kg. This will be completed. Patient will then be transferred to [facility] once to get a bed. Patient stable for transfer <Dr. Sai Feldman, DO - Last Filed: 10/29/22 16:50> [facility] Lab Data Attestation: I reviewed the patient's lab results. Labs: Laboratory Results - last 24 hr 10/29/22 10/29/22 11:23 13:45 WBC 8.1 RBC 4.74 Hgb 12.8 Hct 40.1 MCV 84.6 MCH 27.0 MCHC 31.9 L RDW Std Deviation 40.2 RDW Coeff of Mariella 13.2 Plt Count 299 MPV 9.5 Immature Gran % (Auto) 0.600 Neut % (Auto) 67.2 Lymph % (Auto) 25.1 Winkler % (Auto) 4.8 Eos % (Auto) 1.7 Baso % (Auto) 0.6 Absolute Neuts (auto) 5.4 Absolute Lymphs (auto) 2.02 Nucleated RBC % 0 Sodium 139 Potassium 3.4 L Chloride 108 H Carbon Dioxide 23.0 Anion Gap 8 BUN 10 Creatinine 0.80 Estim Creat Clear Calc 81.97 Est GFR (MDRD) Af Amer 106 Est GFR (MDRD) Non-Af 87 BUN/Creatinine Ratio 12.5 Glucose 135 H Calcium 9.1 Total Bilirubin 0.30 AST 11 L ALT 18 Alkaline Phosphatase 97 Total Protein 7.4 Albumin 3.6 Globulin 3.8 Albumin/Globulin Ratio 0.9 Urine Color Yellow Urine Clarity Sl. Cloudy Urine pH 7.0 Ur Specific Holcomb 1.015 Urine Protein Negative Urine Glucose (UA) Normal Urine Ketones Negative Urine Occult Blood Negative Urine Nitrite Negative Urine Bilirubin Negative Urine Urobilinogen Normal Ur Leukocyte Esterase Negative Urine RBC 0 SEEN Urine WBC 0 SEEN Ur Squamous Epith Cells 0 SEEN Urine Bacteria 0 SEEN Urine Mucus 0 SEEN Urine Test Negative Radiography Diagnostic Testing: Clinical Impression(s) from Imaging Studies Chest X-Ray 10/29/22 11:42 IMPRESSION: No acute abnormality seen. Electronically Signed: Mitchel Conrad MD at 12:26 EDT , Brain CT 10/29/22 12:36 IMPRESSION: Normal unenhanced CT scan of the brain. Electronically Signed: Mitchel Conrad MD at 13:17 EDT , Treatment and Re-Evaluation :: All radiologic examinations were read, reviewed by the emergency department attending. From these reads, a plan of care will be put in place. Patient appears generally well, patient alert orient x4. Patient's neurological dam was unremarkable, his baseline. Patient received some basic laboratory values as well as a chest x-ray, EKG secondary to intermittent chest pain. Vital signs remained stable. Patient be observed. Patient did have a 1 minute to 2-minute grand mal seizure. Patient is now postictal. Patient was given 1 mg of IV Ativan. Patient will need to be CAT scan secondary to recurrent seizure.Patient's laboratory values show a normal CBC, patient's chemistries were unremarkable. Chest x-ray showed no acute abnormality. Patient's chest x-ray, CT scan of the brain interpreted by ED physician and read by radiology were gross unremarkable. No evidence of any bleeding or intracranial hemorrhage. Patient's urinalysis is negative for any infection. Patient will be loaded with Depakote 20 mg/kg as instructed by [facility] neurologist. Patient is excepted to [facility] and is currently waiting a bed. Differential: Recurrent breakthrough seizures, myasthenia gravis, infection Attending note: Patient seen and evaluated with production estimator. I perform my own [id number] evaluation. I agree with the plan of work-up. Here with mother breakthrough seizure this morning. Patient seizure since 11 years old on current Lamictal and zonisamide with no missed doses per mother. Patient from home mother is primary caregiver. Is followed by Dr. Gilmore locally from neurology. Diagnosis of myasthenia gravis [address] [facility] [address] Dee, recently restarted back on her infusions for myasthenia gravis last treatment was yesterday. Patient has been having increasing worsening leg weakness with difficulty walking. Mother reports plans of being referred to another neuromuscular physician for evaluation. This was stated as of yesterday. She was referred to psychiatry for potential psychosomatic disorder. Patient was brought in the ED apparently had another breakthrough seizure before my evaluation. sta. Niesha post Ativan. During my evaluation there is postictal. Moving all 4 extremities. Work-up being initiated with labs repeat CT urine and chest x-ray. Most concerns for recurrent breakthrough seizures which has not happened in the past, will plan to transfer to neurological capable facility. Patient on reevaluation is acting appropriate. The patient will be transferred to [facility]. I was able speak with Dr. Conway who will accept this patient. I spoke with the patient the patient's mother, they are happy with the transfer. The neurologist at [facility] would like me to load the patient up with Depakote 20 mg/kg. This will be completed. Patient will then be transferred to [facility] once to get a bed. Patient stable for transfer Discharge Plan Triage Chief Complaint: Seizure ED Midlevel Provider: Miky Fierro ED Provider: Sai Feldman Dx/Rx/DC Orders Clinical Impression: Breakthrough seizure, Myasthenia gravis, Weakness Prescriptions: No Action zonisamide 100 capsule 200 mg PO 0800 Patient Comments: seizures lorazepam 1 MG tablet 1 mg PO DAILY PRN PRN (Reason: Seizure) Patient Comments: seizures zonisamide 100 MG capsule 300 mg PO QHS Patient Comments: seizures oxcarbazepine 150 mg tablet 150 mg PO QHS Mirena 20 mcg/24 hours (6 yrs) 52 mg Intrauterine Device 20 mcg INTRAUTERINE UD Patient Comments: already placed lamotrigine 200 mg tablet extended release 24hr 100 mg PO 0800 Patient Comments: take 1 tablet by mouth once daily lamotrigine 250 mg tablet extended release 24hr 200 mg PO QHS Patient Comments: take 1 tablet by mouth once daily at bedtime Eliquis 5 mg tablet 5 mg PO BID Patient Comments: TAKE 2 TABLETS BY MOUTH TWICE DAILY FOR 7 DAYS, THEN TAKE 1 TABLET TWICE DAILY escitalopram oxalate [Lexapro] 10 mg Tablet 10 mg PO QHS Valtoco 10 mg/spray (0.1 mL) spray,non-aerosol 10 mg INTRANASAL PRN PRN (Reason: Seizures) Patient Comments: USE DIRECTED NASALLY 1 TO 2 TIMES A WEEK Primary Care Provider: Soha Perdomo Referrals: Soha Perdomo MD [Primary Care Provider] - Disposition Disposition: DC/Tx to Another Type of HCF Discharge Location: [facility]
[2022-10-29 11:48] LABS: Absolute Lymphocyte Count 2.02 X10^3/uL (0.83-4.51); Absolute Neutrophil Count 5.4 X10^3/uL (2.0-7.7); Basophil# 0.05 X10^3/uL; Basophil% 0.6 % (0-1); Eosinophil# 0.14 X10^3/uL; Eosinophils% 1.7 % (0-5); Hematocrit 40.1 % (37-47); Hemoglobin 12.8 g/dL (12.0-15.0); Lymphocyte # 2.02 X10^3/ul (0.83-4.51); Lymphocyte % 25.1 % (19-41); Mean Corp Hgb Conc 31.9 g/dL (32-36); Mean Corpuscular Volume 84.6 fL (81-99); Mean Platelet Vol. 9.5 fl (6.2-12.0); Monocyte# 0.39 X10^3/uL; Monocyte% 4.8 % (0-10); NRBC Flagged by Analyzer 0 % (0-5); Neutrophil % 67.2 % (47-70); Platelet Count 299 K/mm3 (150-450); RBC Distribution Width CV 13.2 % (11.6-14.6); RBC Distribution Width SD 40.2 fl (35.1-43.9); Red Blood Count 4.74 M/mm3 (4.2-5.4); White Blood Count 8.1 K/mm3 (4.4-11.0)
[2022-10-29] MEDS: 0.9% Normal Saline 1,000 ML 1000 ML IV (11:50)
[2022-10-29 12:04] LABS: ALB/GLOB Ratio 0.9 RATIO (0.9-2.4); AST(SGOT) 11 U/L (15-37); Alanine Aminotransfer ALT/SGPT 18 U/L (13-56); Albumin, Serum 3.6 g/dL (3.2-5.0); Alkaline Phosphatase 97 U/L (45-117); Anion Gap 8 (5-15); BUN 10 mg/dL (7-18); BUN/Creat Ratio 12.5 RATIO (10-20); Calcium,Total 9.1 mg/dL (8.5-10.1); Chloride 108 mmol/L (98-107); EST Glomerular Filtration Rate 87 mL/min (>60); Est Glom Filt Rate - Afr Amer 106 mL/min (>60); Estimated Creatinine Clearance 81.97 ml/min; Globulin 3.8 g/dL (2.2-4.2); Glucose 135 mg/dL (74-106); Potassium 3.4 mmol/L (3.5-5.1); Protein, Total 7.4 g/dL (6.4-8.2); Sodium Level 139 mmol/L (136-145)
[2022-10-29] MEDS: LORazepam 2 MG/ML Syringe 1 MG IV (12:32)
--- NOTE | 2022-10-29 12:35 | ED.RN ---
PATIENT HAD HIT CALL LIGHT. PT STATED SHE IS GOING TO HAVE A SEIZURE. SEIZURE PADS APPLIED TO BED RAILS. RN STAYED AT BEDSIDE WITH PATIENT. PATIENT BEGAN HAVING SEIZURE AND CALL LIGHT CORD PULLED BY RN. DR. BALDERAS AT BEDSIDE ALONG WITH LION CHARGE NURSE AND VANESSA PATEL. NONREBREATHER APPLIED 15L WHEN SPo2 60% SPO2 RECOVERED TO 99% ON NONREBREATHER. DASHA IZAGUIRRE AT BEDSIDE TALKING WITH PATIENTS MOTHER. ATIVAN GIVEN THROUGH PATIENTS PORT. WILL CONTINUE TO MONITOR
--- NOTE | 2022-10-29 12:36 | CT_ITS ---
STUDY: CT BRAIN WITHOUT CONTRAST REASON FOR EXAM: Female, 32 years old. seizure. MYASTHENIA GRAVIS RADIATION DOSAGE (If Supplied By Facility): CTDIvol = ( 44.99 ) mGy, DLP = ( 1659.71 ) mGycm TECHNIQUE: Transaxial CT imaging of the brain was performed without administration of intravenous contrast material. Individualized dose optimization techniques were used for this CT. COMPARISON: Comparison is made with prior study dated May 27, 2022. FINDINGS: Normal soft tissue structures. Normal calvarium. Normal size ventricles and extra-axial spaces for the patient''s age. Normal white matter tracts of the cerebral hemispheres. Normal basal ganglia and thalami. Normal brainstem. Normal cerebellum. There is no intracranial hemorrhage. There are no findings of an acute ischemic infarction. Normal visualized paranasal sinuses. CT/Brain/Head without Contrast IMPRESSION: Normal unenhanced CT scan of the brain. Electronically Signed: Mitchel Conrad MD at 13:17 EDT ,
[2022-10-29 13:55] LABS: Bacteria 0 SEEN /hpf (None Seen); Mucous, Urine 0 SEEN /hpf (<or=2+); Red Blood Cells-Urine 0 SEEN /hpf (0-5); Squamous Epithelial Cells - UA 0 SEEN /hpf (5-10); White Blood Cells 0 SEEN /hpf (0-5)
[2022-10-29 13:59] LABS: Color, Urine Yellow (Yellow); Glucose, Dipstick Normal (Normal); Ketone-Dipstick Negative (Negative); Leukocyte Esterase-Dipstick Negative /ul (Negative); Nitrite-Dipstick Negative (Negative); Occult Blood-Urine Negative /ul (Negative); Protein-Dipstick Negative (Negative); Specific Gravity, Urine 1.015 (1.002-1.030); Urine Bilirubin Dipstick Negative (Negative); Urine Clarity Sl. Cloudy (Clear); Urine Urobilinogen Normal (Normal)
[2022-10-29 14:01] LABS: Internal QC Validated? YES +Cl - CLEAR BKGD; Pregnancy, Urine Negative Negative
[2022-10-29] MEDS: Ibuprofen 600 MG Tablet PO (15:09)
--- NOTE | 2022-10-29 18:36 | ED.RN ---
pt ride ets 2-3 hours per physicians. jay peraza. attempted made to outsource per physicians. no success.
[2022-10-29] MEDS: Acetaminophen 500 MG Tablet 1000 MG PO (20:07)
[2022-10-29] MEDS: APIXABAN 5 MG TABLET PO (20:14)
[2022-10-29] MEDS: OXcarbazepine 150 MG Tablet PO (20:14)
[2022-10-29] MEDS: Escitalopram Oxalate 10 MG Tablet PO (20:14)
[2022-10-29] MEDS: LORazepam 1 MG Tablet PO (20:14)
== END 2022-10-29 20:23 | disposition other institution (70) ==
PROVIDERS: Nurse Practitioner; Emergency Provider Emergency Medicine; PCP Internal Medicine; Visit Provider Emergency Medicine
DX: G40.909 Epilepsy, unspecified, not intractable, without status epilepticus (principal); G70.00 Myasthenia gravis without (acute) exacerbation; F41.9 Anxiety disorder, unspecified; Z79.899 Other long term (current) drug therapy
CPT/HCPCS: 36591; 70450; 71045; 80053; 81001; 81025; 85025; 93005; 96361; 96365; 96366; 96375; 99285; J7030; A4216

== ENCOUNTER → 2022-12-19 | Outpatient (CLI) | payer MEDICARE, MEDICAID, SELFPAY | END | disposition home or self-care (01) | PROVIDERS: PCP Internal Medicine | DX: G40.019 Localization-related (focal) (partial) idiopathic epilepsy and epileptic syndromes with seizures of localized onset, intractable, without status epilepticus (principal) ==

== ENCOUNTER 2023-06-08 12:10 | Emergency (ER) | payer MEDICARE, MEDICAID, SELFPAY ==
[2023-06-08 12:11] VITALS: BP 111/73; PULSE 86; RESP 18; TEMP 36.4; O2SAT 96; BMI 32.1
--- NOTE | 2023-06-08 12:23 | EX.ED.GENINJ ---
HPI <Natty Adkins RN - Last Filed: 06/08/23 13:14> History of Present Illness Chief Complaint: Head Injury Informant: patient Onset/Context/Timing Onset: Hours (1 hr) Mechanism/Context: Fall Location of pain/injuries: - (Head - rt parietal) Quality of Pain: Throbbing Current Severity: 9/10 Maximum Severity: 9/10 Worsened by: Light, touch Associated Symptoms Associated Symptoms: Positive for - (Nausea) Narrative Narrative: Patient presented to the ED via EMS status post fall down 2-3 outdoor steps hitting back of head on concrete. Denies LOC. Reports throbbing head pain, nausea, photosensitivity. Denies blood thinners. Past medical history significant for epilepsy and myasthenia gravis. Tetanus Immunization: Unknown Prior similar symptoms: No Recent Illness/Hospitalization: No PFSH <Natty Adkins RN - Last Filed: 06/08/23 13:14> PFSH Medical History Anemia Chest pain Difficulty chewing Difficulty swallowing History of stress test Hx of peripheral vascular disease Injury of head and neck Leg cramps Migraine headache Myasthenia gravis Non-smoker Normal echocardiogram (~05/18/16) Seizures Shortness of breath on exertion Home Medications zonisamide 100 mg capsule 200 mg PO 0800 seizures 12/23/17 [History Last Taken 10/17/21] lorazepam 1 mg tablet 1 mg PO Q8H Seizure 01/07/18 [History Last Taken 05/03/18] zonisamide 100 mg capsule 300 mg PO QHS seizures 03/26/19 [History Last Taken 11/01/20 20:00] lamotrigine 200 mg tablet,extended release 24 hr 100 mg PO 0800 seizures 10/14/20 [History Last Taken 10/17/21] lamotrigine 250 mg tablet,extended release 24 hr 250 mg PO QHS seizures 10/14/20 [History Last Taken 11/01/20 20:00] levonorgestrel 21 mcg/24 hours (8 yrs) 52 mg intrauterine device (Mirena) 20 mcg intrauterine UD control 10/14/20 [History Last Taken Unknown] oxcarbazepine 150 mg tablet 150 mg PO QHS SEIZURES 10/14/20 [History Last Taken 11/01/20 20:00] apixaban 5 mg tablet (Eliquis) 5 mg PO QHS blood clot 11/02/20 [History Last Taken 10/13/21] escitalopram oxalate 10 mg tablet (Lexapro) 10 mg PO QHS 10/09/21 [History Last Taken Unknown] diazepam 10 mg/spray (0.1 mL) nasal spray (Valtoco) 10 mg intranasal PRN PRN Seizures 08/08/22 [History Last Taken Unknown] Allergy/AdvReac Type Severity Reaction Status Date / Time levetiracetam [From Keppra] Allergy Other Verified 10/29/22 11:15 Penicillins Allergy Rash Verified 10/29/22 11:15 phenytoin [From Dilantin] Allergy PT UNSURE Verified 10/29/22 11:15 OF REACTION prochlorperazine Allergy Other Verified 10/29/22 11:15 [From Compazine] shellfish derived Allergy Other Verified 10/29/22 11:15 soy AdvReac NEEDS Verified 10/29/22 11:15 FOLLOW-UP Surgical History Hx of appendectomy Hx of thymectomy Hx of total hip arthroplasty Social History household members: spouse Smoking Status: Never smoker second hand exposure: Yes alcohol intake: never substance use type: does not use ROS <Natty Adkins RN - Last Filed: 06/08/23 13:14> ROS ED Constitutional Constitutional ED: Denies chills, fever(s) or sweats Eyes Eyes: Denies blurry vision or change in vision ENT ENT ED: Denies rhinorrhea Cardiovascular Cardiovascular: Denies chest pain Respiratory/Chest Respiratory/Chest: Denies cough or dyspnea Gastrointestinal Gastrointestinal: Reports nausea; Denies abdominal pain or vomiting Integumentary Reports Abrasions; Denies rash Neurologic Neurologic: Reports headache(s) EXAM <Natty Adkins RN - Last Filed: 06/08/23 13:14> Physical Exam Const Vital Signs: 06/08/23 12:11 06/08/23 12:11 06/08/23 12:47 Temperature 97.6 F L 97.6 F L Temperature Source Temporal Pulse Rate 86 98 Respiratory Rate 18 16 Respiratory Effort Normal Respiratory Depth Normal Respiratory Pattern Normal Blood Pressure 111/73 105/76 Blood Pressure Mean 85 85 Pulse Ox 96 99 Oxygen Delivery Method Room Air Room Air Positive well nourished and well developed General Appearance ED: well developed and NAD HEENT HEENT Narrative: Moderate edema and tenderness to right parietal scalp. Small abrasion noted. No drainage noted trauma and tenderness Eyes PERRL and EOMs intact bilaterally Neck full ROM Chest Wall inspection of chest normal and palpation of chest normal Resp normal respiratory effort and clear to auscultation bilaterally Cardio regular rhythm, S1 normal heart sound and S2 normal heart sound GI normal to inspection, nondistended, normoactive bowel sounds and non-tender Palpation: soft Back/Spine normal to inspection and no thoracic nor lumbar tenderness Extremity normal to inspection and full ROM Extremity Narrative: Mild tremoring noted. Patient reports this as happening occasionally at home. Has nasal diazepam at home for seizures. Neuro oriented x3, moves all extremities and no sensory deficits noted Motor Exam: strength 5/5 throughout Psych mental status grossly normal Skin Skin Narrative: Abrasion to right parietal scalp <Dr. Brain Del Castillo MD - Last Filed: 06/08/23 17:13> Physical Exam Const Vital Signs: 06/08/23 12:11 06/08/23 12:11 06/08/23 12:47 Temperature 97.6 F L 97.6 F L Temperature Source Temporal Pulse Rate 86 98 Respiratory Rate 18 16 Respiratory Effort Normal Respiratory Depth Normal Respiratory Pattern Normal Blood Pressure 111/73 105/76 Blood Pressure Mean 85 85 Pulse Ox 96 99 Oxygen Delivery Method Room Air Room Air [facility] <Natty Adkins RN - Last Filed: 06/08/23 13:14> [facility] Narrative Medical decision making narrative: Patient awake and alert. Denies LOC. Therefore no CT of head indicated. Treatment and Re-Evaluation Narrative: Patient to be discharged home with mother. Plan discussed with patient. Patient agreeable. Aware to return for worsening symptoms. Encouraged to rest, use ice for swelling, and ibuprofen or Tylenol for headache. <Dr. Brain Del Castillo MD - Last Filed: 06/08/23 17:13> [facility] Narrative Medical decision making narrative: Patient awake and alert. Denies LOC. Therefore no CT of head indicated. I have personally performed a face to face assessment of the patient and have reviewed the HUAN Note. I performed a substantive portion of the visit including all aspects of the following. My brennan findings include: History is remarkable for fall backward striking head. There was no loss conscious. She would not days. She did complain of headache, nausea, blurred vision. She has not vomited. She is not on antithrombotic or anticoagulant. She does have history of myasthenia gravis. She reported triple vision. Unable to tell me if it was horizontal or vertical. She also reported quadruple vision during the exam. No epistaxis. No dental trauma. No neck pain. No paresthesia, anesthesia or motor weakness upper or lower extremity. No problems with coordination or balance. No problems with speech or swallowing. Exam is occipital hematoma. No clinical findings of basilar skull fracture. No palpable depression. No septal deviation hematoma. No evidence of dental trauma. No midline posterior neck pain. Trachea is midline. Heart and lung exam is normal. Abdomen is soft nontender. There is no clonus or Babinski sign. DTRs are symmetric. There is no dysmetria. Medical Decision Making per the Irish CT head rule and [place] rule imaging the head is not warranted or necessary. Prior to discharge patient had tremors. Since she had history of seizures her mother wanted us to recheck her. She was reassessed. There is no abnormal neurologic findings compared to initial exam. Other additions or changes: Patient was discharged home with appropriate home-going structures for concussion. Discharge Plan Triage Chief Complaint: Head Injury ED Provider: Brain Del Castillo Dx/Rx/DC Orders Clinical Impression: Concussion, Head injury Instructions: Concussion Dc Prescriptions: No Action zonisamide 100 capsule 200 mg PO 0800 Patient Comments: seizures lorazepam 1 MG tablet 1 mg PO Q8H Patient Comments: seizures Rx Instructions: 08, 12, 20 zonisamide 100 MG capsule 300 mg PO QHS Patient Comments: seizures oxcarbazepine 150 mg tablet 150 mg PO QHS Mirena 20 mcg/24 hours (6 yrs) 52 mg Intrauterine Device 20 mcg INTRAUTERINE UD Patient Comments: already placed lamotrigine 200 mg tablet extended release 24hr 100 mg PO 0800 Patient Comments: take 1 tablet by mouth once daily lamotrigine 250 mg tablet extended release 24hr 250 mg PO QHS Patient Comments: take 1 tablet by mouth once daily at bedtime Eliquis 5 mg tablet 5 mg PO QHS Patient Comments: TAKE 2 TABLETS BY MOUTH TWICE DAILY FOR 7 DAYS, THEN TAKE 1 TABLET TWICE DAILY escitalopram oxalate [Lexapro] 10 mg Tablet 10 mg PO QHS Valtoco 10 mg/spray (0.1 mL) spray,non-aerosol 10 mg INTRANASAL PRN PRN (Reason: Seizures) Patient Comments: USE DIRECTED NASALLY 1 TO 2 TIMES A WEEK Primary Care Provider: Soha Perdomo Referrals: Soha Perdomo MD [Primary Care Provider] - Activity Restrictions/Additional Instructions: Follow-up with primary care in 1 to 2 weeks. Rest. Ice to head for swelling. Ibuprofen 400 mg 3 times a day or Tylenol 500 mg up to 3 times daily for headache. Disposition Disposition: Home, Self Care Discharge Date/Time: 06/08/23 13:25
[2023-06-08 12:47] VITALS: BP 105/76; PULSE 98; RESP 16; TEMP 36.4; O2SAT 99
== END 2023-06-08 13:25 | disposition home or self-care (01) ==
PROVIDERS: Emergency Provider Emergency Medicine; PCP Internal Medicine; Visit Provider Emergency Medicine
DX: S06.0X0A Concussion without loss of consciousness, initial encounter (principal); G70.00 Myasthenia gravis without (acute) exacerbation; G40.909 Epilepsy, unspecified, not intractable, without status epilepticus; W10.9XXA Fall (on) (from) unspecified stairs and steps, initial encounter
CPT/HCPCS: 99282

== ENCOUNTER → 2024-01-31 | Outpatient (CLI) | payer MEDICARE, MEDICAID, SELFPAY ==
[2024-01-31 09:20] LABS: Absolute Lymphocyte Count 1.43 X10^3/uL (0.83-4.51); Basophil# 0.04 X10^3/uL; Basophil% 0.6 % (0-1); Eosinophil# 0.12 X10^3/uL; Eosinophils% 1.7 % (0-5); Hematocrit 44.1 % (37-47); Hemoglobin 14.3 g/dL (12.0-15.0); Lymphocyte # 1.43 X10^3/ul (0.83-4.51); Lymphocyte % 20.4 % (19-41); Mean Corp Hgb Conc 32.4 g/dL (32-36); Mean Corpuscular Hgb 28.7 pg (27.0-32.0); Mean Corpuscular Volume 88.6 fL (81-99); Monocyte# 0.37 X10^3/uL; Monocyte% 5.3 % (0-10); NRBC Flagged by Analyzer 0 % (0-5); Neutrophil # 5.03 X10^3/uL (2.7-7.7); Neutrophil % 71.6 % (47-70); Platelet Count 281 K/mm3 (150-450); RBC Distribution Width CV 12.8 % (11.6-14.6); RBC Distribution Width SD 41.2 fl (35.1-43.9); Red Blood Count 4.98 M/mm3 (4.2-5.4)
[2024-01-31 09:57] LABS: Vitamin B12 350 pg/mL (211-911)
[2024-01-31 10:06] LABS: ALB/GLOB Ratio 1.1 RATIO (0.9-2.4); AST(SGOT) 12 U/L (15-37); Alanine Aminotransfer ALT/SGPT 19 U/L (13-56); Alkaline Phosphatase 113 U/L (45-117); Anion Gap 9 (5-15); BUN 9 mg/dL (7-18); BUN/Creat Ratio 10.5 RATIO (10-20); Calcium,Total 9.5 mg/dL (8.5-10.1); Chloride 110 mmol/L (98-107); Creatinine, Serum 0.86 mg/dL (0.55-1.02); EST Glomerular Filtration Rate 80 mL/min (>60); Est Glom Filt Rate - Afr Amer 96 mL/min (>60); Globulin 3.8 g/dL (2.2-4.2); Glucose 94 mg/dL (74-106); Potassium 3.5 mmol/L (3.5-5.1); Protein, Total 7.8 g/dL (6.4-8.2); Sodium Level 141 mmol/L (136-145)
== END | disposition home or self-care (01) ==
PROVIDERS: PCP Internal Medicine; Referring Provider Psychiatry & Neurology Neurology; Visit Provider Psychiatry & Neurology Neurology
DX: G40.019 Localization-related (focal) (partial) idiopathic epilepsy and epileptic syndromes with seizures of localized onset, intractable, without status epilepticus (principal)
CPT/HCPCS: 36415; 80053; 82607; 84443; 85025

== ENCOUNTER → 2024-03-13 | Outpatient (CLI) | payer MEDICARE, MEDICAID, SELFPAY ==
[2024-03-15 14:10] LABS: Lamotrigine (Lamictal) Level 7.6 ug/mL (2.0-20.0)
== END | disposition home or self-care (01) ==
PROVIDERS: PCP Internal Medicine; Referring Provider Psychiatry & Neurology Neurology; Visit Provider Psychiatry & Neurology Neurology
DX: G40.019 Localization-related (focal) (partial) idiopathic epilepsy and epileptic syndromes with seizures of localized onset, intractable, without status epilepticus (principal)
CPT/HCPCS: 36415; 82542

== ENCOUNTER → 2024-04-17 | Outpatient (CLI) | payer MEDICARE, MEDICAID, SELFPAY ==
[2024-04-17 08:21] LABS: Absolute Lymphocyte Count 1.36 X10^3/uL (0.83-4.51); Absolute Neutrophil Count 5.3 X10^3/uL (2.0-7.7); Basophil# 0.05 X10^3/uL; Basophil% 0.7 % (0-1); Eosinophil# 0.14 X10^3/uL; Eosinophils% 1.9 % (0-5); Hematocrit 44.7 % (37-47); Hemoglobin 14.6 g/dL (12.0-15.0); Lymphocyte # 1.36 X10^3/ul (0.83-4.51); Lymphocyte % 18.7 % (19-41); Mean Corp Hgb Conc 32.7 g/dL (32-36); Mean Corpuscular Hgb 28.6 pg (27.0-32.0); Mean Corpuscular Volume 87.5 fL (81-99); Mean Platelet Vol. 9.1 fl (6.2-12.0); Monocyte# 0.45 X10^3/uL; Monocyte% 6.2 % (0-10); NRBC Flagged by Analyzer 0 % (0-5); Neutrophil # 5.27 X10^3/uL (2.7-7.7); Neutrophil % 72.2 % (47-70); Platelet Count 284 K/mm3 (150-450); RBC Distribution Width CV 13.1 % (11.6-14.6); RBC Distribution Width SD 41.7 fl (35.1-43.9); Red Blood Count 5.11 M/mm3 (4.2-5.4); White Blood Count 7.3 K/mm3 (4.4-11.0)
[2024-04-17 09:32] LABS: AST(SGOT) 16 U/L (15-37); Alanine Aminotransfer ALT/SGPT 26 U/L (13-56); Albumin, Serum 4.1 g/dL (3.2-5.0); Alkaline Phosphatase 111 U/L (45-117); Anion Gap 7 (5-15); BUN 10 mg/dL (7-18); Calcium,Total 9.8 mg/dL (8.5-10.1); Chloride 112 mmol/L (98-107); Creatinine, Serum 0.91 mg/dL (0.55-1.02); EST Glomerular Filtration Rate 74 mL/min (>60); Est Glom Filt Rate - Afr Amer 90 mL/min (>60); Glucose 92 mg/dL (74-106); Potassium 3.9 mmol/L (3.5-5.1); Protein, Total 8.1 g/dL (6.4-8.2); Sodium Level 140 mmol/L (136-145)
== END | disposition home or self-care (01) ==
LOC: LAB 07:56
PROVIDERS: PCP Internal Medicine; Referring Provider Psychiatry & Neurology Neurology; Visit Provider Psychiatry & Neurology Neurology
DX: G70.00 Myasthenia gravis without (acute) exacerbation (principal); G40.909 Epilepsy, unspecified, not intractable, without status epilepticus
CPT/HCPCS: 36415; 80053; 82140; 85025

== ENCOUNTER → 2024-07-18 | Outpatient (CLI) | payer MEDICARE, MEDICAID, SELFPAY | END | disposition home or self-care (01) | LOC: PSN 08:15 | PROVIDERS: PCP Internal Medicine; Referring Provider Psychiatry & Neurology Neurology; Visit Provider Psychiatry & Neurology Neurology | DX: G40.909 Epilepsy, unspecified, not intractable, without status epilepticus (principal) | CPT/HCPCS: 95819 ==

== ENCOUNTER → 2024-08-05 | Outpatient (CLI) | payer MEDICARE, MEDICAID, SELFPAY ==
[2024-08-05 09:48] LABS: Absolute Lymphocyte Count 1.37 X10^3/uL (0.83-4.51); Absolute Neutrophil Count 4.7 X10^3/uL (2.0-7.7); Basophil# 0.05 X10^3/uL; Basophil% 0.8 % (0-1); Eosinophil# 0.12 X10^3/uL; Eosinophils% 1.8 % (0-5); Hematocrit 42.6 % (37-47); Hemoglobin 14.5 g/dL (12.0-15.0); Lymphocyte # 1.37 X10^3/ul (0.83-4.51); Lymphocyte % 20.9 % (19-41); Mean Corpuscular Hgb 29.7 pg (27.0-32.0); Mean Corpuscular Volume 87.1 fL (81-99); Mean Platelet Vol. 9.4 fl (6.2-12.0); Monocyte# 0.34 X10^3/uL; Monocyte% 5.2 % (0-10); NRBC Flagged by Analyzer 0 % (0-5); Neutrophil # 4.66 X10^3/uL (2.7-7.7); Platelet Count 249 K/mm3 (150-450); RBC Distribution Width CV 13.3 % (11.6-14.6); RBC Distribution Width SD 41.7 fl (35.1-43.9); Red Blood Count 4.89 M/mm3 (4.2-5.4); White Blood Count 6.6 K/mm3 (4.4-11.0)
[2024-08-05 10:14] LABS: Ammonia 39.3 umol/L (11-51)
[2024-08-05 10:15] LABS: ALB/GLOB Ratio 1.5 RATIO (0.9-2.4); AST(SGOT) 23 U/L (<=31); Alanine Aminotransfer ALT/SGPT 19 U/L (<=34); Albumin, Serum 4.4 g/dL (3.5-5.0); Alkaline Phosphatase 103 U/L (35-104); Anion Gap 12 (5-15); BUN 11 mg/dL (4-19); BUN/Creat Ratio 13.4 RATIO (10-20); Calcium,Total 9.6 mg/dL (7.6-11.0); Carbon Dioxide 17.4 mmol/L (21.0-32.0); Chloride 109 mmol/L (98-108); Creatinine, Serum 0.81 mg/dL (0.70-1.20); EST Glomerular Filtration Rate 98 (>60); Glucose 92 mg/dL (70-99); Potassium 3.8 mmol/L (3.3-5.1); Protein, Total 7.4 g/dL (5.9-8.4); Sodium Level 138 mmol/L (133-145); Total Bilirubin 0.38 mg/dL (0.00-1.30)
[2024-08-08 12:08] LABS: Lamotrigine (Lamictal) Level 16.3 ug/mL (2.0-20.0)
== END | disposition home or self-care (01) ==
LOC: LAB 09:22
PROVIDERS: PCP Internal Medicine; Referring Provider Psychiatry & Neurology Neurology; Visit Provider Psychiatry & Neurology Neurology
DX: G40.909 Epilepsy, unspecified, not intractable, without status epilepticus (principal); G70.00 Myasthenia gravis without (acute) exacerbation; K59.09 Other constipation
CPT/HCPCS: 36415; 80053; 82140; 82542; 84439; 84443; 85025

== ENCOUNTER → 2024-08-16 | Outpatient (CLI) | payer MEDICARE, MEDICAID, SELFPAY ==
[2024-08-17 15:08] LABS: Endomysial Antibody IgA Negative (Negative); Immunoglobulin A 321 mg/dL (87-352); t-Transglutaminase IgA <2 U/mL (0-3)
== END | disposition home or self-care (01) ==
LOC: LAB 08:36
PROVIDERS: PCP Internal Medicine; Referring Provider Student in an Organized Health Care Education/Training Program; Visit Provider Student in an Organized Health Care Education/Training Program
DX: R14.0 Abdominal distension (gaseous) (principal)
CPT/HCPCS: 36415; 82784; 83516; 86003; 86005; 86255

== ENCOUNTER 2024-08-18 11:43 | Emergency (ER) | payer MEDICARE, MEDICAID, SELFPAY ==
[2024-08-18 11:44] VITALS: BP 128/88; PULSE 111; RESP 14; TEMP 36.8; O2SAT 98; BMI 29.5
--- NOTE | 2024-08-18 12:11 | EDS_ITS ---
HPI History of Present Illness Chief Complaint: Seizure Informant: patient and parent Onset/Context/Timing Onset: Today Context: Gradual Onset Timing: Intermittent Quality: Shaky Location: Generalized Worsened by: Nothing Relieved by: Lorazepam Narrative Narrative: Patient presents with possible seizure that occurred today. Patient states she felt shaky and was shaking all over. Patient states this is how she feels prior to having a seizure. Patient called her mother. Mother gave the patient a milligram of lorazepam since she was still awake and alert. Patient was feeling better after this. Patient did not have a generalized tonic-clonic seizure. Patient states she was seen by [facility] recently and was given Sitzmarks for her constipation. Mother states she read the package instructions and states that this could interact with some of her medications. Prior similar symptoms: Yes [facility] Medical History Encounter to establish care Chronic abdominal pain Chronic constipation Hx of peripheral vascular disease Normal echocardiogram (~05/18/16) Anemia Migraine headache Injury of head and neck Seizures Difficulty swallowing Difficulty chewing Non-smoker Shortness of breath on exertion Leg cramps History of stress test Chest pain Myasthenia gravis Home Medications ?Medication ?Instructions ?Recorded ?Last Taken ?Type levonorgestrel (Mirena) 20 mcg intrauterine UD 10/14/20 Unknown History control diazepam 10 mg/spray (0.1 mL) 10 mg intranasal PRN PRN Seizures 08/08/22 Unknown History nasal spray (Valtoco) zonisamide 100 mg capsule 300 mg (3 x 100 mg) PO QPM 1 06/13/23 Unknown Rx seizures #90 caps escitalopram oxalate 10 mg tablet 10 mg PO QHS #30 tab s 07/06/24 Unknown Rx (Lexapro) lamotrigine 250 mg tablet,extended 250 mg PO BID seizu res #60 tabs 07/06/24 Unknown Rx release 24 hr zonisamide 100 mg capsule See Rx Instructions .Route 0 07/06/24 Unknown Rx .COMPLEX seizures #150 caps ravulizumab-cwvz 100 mg/mL 3,300 mg (33 mL) .Route .q8 weeks 07/27/24 Unknown Rx intravenous solution (Ultomiris) #33 mL Allergy/AdvReac Type Severity Reaction Status Date / Time levetiracetam (From [facility]) Allergy Other Verified 08/18/24 11:44 Penicillins Allergy Rash Verified 08/18/24 11:44 phenytoin (From Dilantin) Allergy PT UNSURE Verified 08/18/24 11:44 OF REACTION prochlorperazine (From Allergy Other Verified 08/18/24 11:44 Compazine) shellfish derived Allergy Other Verified 08/18/24 11:44 soy AdvReac NEEDS Verified 08/18/24 11:44 FOLLOW-UP Family History Mother Heart disease Cervical cancer Father No problems noted. Surgical History History of colonoscopy (04/02/22) Hx of appendectomy Hx of total hip arthroplasty Hx of thymectomy Social History household members: children current occupational status: disabled pets and animals: Yes pets and animals: dog(s) and turtle(s) Smoking Status: Never smoker second hand exposure: Yes alcohol intake: never substance use type: does not use caffeine: Yes (1 cup coffee daily on avg) Type: coffee do you feel safe at home: Yes ROS ROS ED Constitutional Constitutional ED: Denies chills or fever(s) Eyes Eyes: Denies blurry vision or change in vision ENT ENT ED: Reports rhinorrhea; Denies sore throat Cardiovascular Cardiovascular: Denies chest pain or palpitations Respiratory/Chest Respiratory/Chest: Denies cough or dyspnea Gastrointestinal Gastrointestinal: Reports nausea; Denies vomiting Genitourinary Genitourinary ED: Denies dysuria or hematuria Musculoskeletal Musculoskeletal: Reports back pain; Denies neck pain Integumentary Denies abscess or rash Neurologic Neurologic: Denies headache(s) or weakness Allergic/Immunologic Allergic/Immunologic ED: Denies mouth swelling or urticaria EXAM Physical Exam Const Vital Signs: 08/18/24 11:44 08/18/24 13:43 Temperature 98.2 F Temperature Source Temporal Pulse Rate 111 H 72 Respiratory Rate 14 18 Blood Pressure 128/88 H 99/74 Blood Pressure Mean 101 82 Pulse Ox 98 97 Oxygen Delivery Method Room Air Room Air Positive well nourished and well developed Constitutional Narrative: BMI is 29.6. General Appearance ED: well developed and NAD HEENT Reports moist mucous membranes Neck supple and no JVD Chest Wall inspection of chest normal Resp normal respiratory effort and clear to auscultation bilaterally Cardio regular rate and regular rhythm GI non-distended Palpation: soft and tender LUQ; Negative for guarding or rebound tenderness present Extremity normal to inspection Neuro oriented x3, CN's II-XII intact bilaterally and no sensory deficits noted Sensorium / Orientation: alert Motor Exam: strength 5/5 throughout Psych mental status grossly normal MDM MDM MDM Narrative Medical decision making narrative: Differential diagnosis includes seizure, electrolyte abnormality, medication side effect, and anxiety. CBC will be obtained to assess for leukocytosis and anemia. Basic metabolic profile will be obtained to assess for electrolyte abnormality and renal function. Patient had a recent lamotrigine level on 08/05/2024 which was therapeutic at 16.3. Therefore, I do not feel this will need to be repeated today. History & Record Review Additional record(s) reviewed:: Prior outpatient record and Prior labs Lab Data Attestation: I reviewed the patient's lab results. Lab results narrative: CBC was reviewed and was within normal limits. Basic metabolic profile was reviewed and was within normal limits. Labs: Laboratory Results - last 24 hr 08/18/24 11:58 WBC 7.7 RBC 4.64 Hgb 13.6 Hct 40.6 MCV 87.5 MCH 29.3 MCHC 33.5 RDW Std Deviation 42.2 RDW Coeff of Mariella 13.2 Plt Count 269 MPV 9.6 Immature Gran % (Auto) 0.400 Neut % (Auto) 68.6 Lymph % (Auto) 22.5 [place] % (Auto) 6.3 Eos % (Auto) 1.7 Baso % (Auto) 0.5 Absolute Neuts (auto) 5.3 Absolute Lymphs (auto) 1.74 Nucleated RBC % 0 Sodium 139 Potassium 3.5 Chloride 107 Carbon Dioxide 19.6 L Anion Gap 12 BUN 9 Creatinine 0.77 Estim Creat Clear Calc 94.68 Est GFR (MDRD) Non-Af 103 BUN/Creatinine Ratio 11.3 Glucose 114 H Calcium 9.4 Treatment and Re-Evaluation :: Patient was advised of her findings. Patient no further seizure activity. Patient is feeling better on reevaluation. Patient was instructed to continue with her antiepileptic medications as prescribed. Patient was instructed to follow-up with her primary care physician, line service attendant, and neurologist as scheduled. Patient was instructed to return if worse in any way. Patient understood and was agreeable with the plan. All questions were answered. Discharge Plan Triage Chief Complaint: Seizure Other Complaint: Constipation ED Provider: Jhon Priest Dx/Rx/DC Orders Clinical Impression: Epilepsy, Myasthenia gravis Instructions: ED Seizure, Recurrent (Adult) Prescriptions: No Action zonisamide 100 mg capsule 300 mg PO QPM Qty: 90 4RF zonisamide 100 mg capsule See Rx Instructions .ROUTE .COMPLEX Qty: 150 5RF Rx Instructions: Take 2 capsules orally every morning and 3 capsules every evening. lamotrigine 250 mg tablet extended release 24hr 250 mg PO BID Qty: 60 5RF escitalopram oxalate [Lexapro] 10 mg tablet 10 mg PO QHS Qty: 30 5RF Mirena 20 mcg/24 hours (6 yrs) 52 mg Intrauterine Device 20 mcg INTRAUTERINE UD Patient Comments: already placed Valtoco 10 mg/spray (0.1 mL) spray,non-aerosol 10 mg INTRANASAL PRN PRN (Reason: Seizures) Patient Comments: USE DIRECTED NASALLY 1 TO 2 TIMES A WEEK Ultomiris 100 mg/mL solution 3,300 mg .Route .q8 weeks Qty: 33 2RF Rx Instructions: 3300 mg IV infusion over 1 hour every 8 weeks. Primary Care Provider: Leander Patel Referrals: Leander Patel MD [Primary Care Provider] - 5-7 Days Print Language: Lithuanian Disposition Disposition: Home, Self Care
[2024-08-18] MEDS: 0.9% Normal Saline (1000mL) 1,000 ML 1000 ML IV (12:35)
[2024-08-18 12:39] LABS: Absolute Lymphocyte Count 1.74 X10^3/uL (0.83-4.51); Absolute Neutrophil Count 5.3 X10^3/uL (2.0-7.7); Basophil# 0.04 X10^3/uL; Basophil% 0.5 % (0-1); Eosinophil# 0.13 X10^3/uL; Eosinophils% 1.7 % (0-5); Hematocrit 40.6 % (37-47); Hemoglobin 13.6 g/dL (12.0-15.0); Lymphocyte # 1.74 X10^3/ul (0.83-4.51); Lymphocyte % 22.5 % (19-41); Mean Corp Hgb Conc 33.5 g/dL (32-36); Mean Corpuscular Hgb 29.3 pg (27.0-32.0); Mean Corpuscular Volume 87.5 fL (81-99); Mean Platelet Vol. 9.6 fl (6.2-12.0); Monocyte# 0.49 X10^3/uL; Monocyte% 6.3 % (0-10); NRBC Flagged by Analyzer 0 % (0-5); Neutrophil # 5.31 X10^3/uL (2.7-7.7); Neutrophil % 68.6 % (47-70); Platelet Count 269 K/mm3 (150-450); RBC Distribution Width CV 13.2 % (11.6-14.6); RBC Distribution Width SD 42.2 fl (35.1-43.9); Red Blood Count 4.64 M/mm3 (4.2-5.4); White Blood Count 7.7 K/mm3 (4.4-11.0)
[2024-08-18 13:30] LABS: Anion Gap 12 (5-15); BUN 9 mg/dL (4-19); BUN/Creat Ratio 11.3 RATIO (10-20); Calcium,Total 9.4 mg/dL (7.6-11.0); Carbon Dioxide 19.6 mmol/L (21.0-32.0); Chloride 107 mmol/L (98-108); Creatinine, Serum 0.77 mg/dL (0.70-1.20); EST Glomerular Filtration Rate 103 (>60); Estimated Creatinine Clearance 94.68 ml/min (50-250); Glucose 114 mg/dL (70-99); Potassium 3.5 mmol/L (3.3-5.1); Sodium Level 139 mmol/L (133-145)
[2024-08-18 13:43] VITALS: BP 99/74; PULSE 72; RESP 18; O2SAT 97
[2024-08-18] MEDS: Acetaminophen 500 MG Tablet 1000 MG PO (14:33)
[2024-08-18 14:38] VITALS: BP 107/79; PULSE 77; RESP 19; TEMP 36.7; O2SAT 99
== END 2024-08-18 14:39 | disposition home or self-care (01) ==
PROVIDERS: Emergency Provider Emergency Medicine; PCP Internal Medicine; Visit Provider Emergency Medicine
DX: G40.909 Epilepsy, unspecified, not intractable, without status epilepticus (principal); G70.00 Myasthenia gravis without (acute) exacerbation
CPT/HCPCS: 36591; 80048; 85025; 96360; 96361; 99285; A4216

== ENCOUNTER → 2024-08-21 | Outpatient (CLI) | payer MEDICARE, MEDICAID, SELFPAY ==
--- NOTE | 2024-08-21 09:08 | RAD_ITS ---
PROCEDURE: ABDOMEN SINGLE VIEW 08/21/2024 REASON FOR EXAM: SITZ MARKER DAY 3 TECHNIQUE: Single view abdomen. COMPARISON: None. FINDINGS: Bowel gas: The bowel loops are normal in caliber. Sitz markers within the distal small bowel and ascending colon. Calcifications: None. Bones: The bones are unremarkable. Other: IUD overlying the pelvis. RAD/Abdomen Single View IMPRESSION: Sitz markers within the distal small bowel and ascending colon. Reading Location: [id number]
== END | disposition home or self-care (01) ==
LOC: RAD 09:08
PROVIDERS: PCP Internal Medicine; Referring Provider Student in an Organized Health Care Education/Training Program; Visit Provider Student in an Organized Health Care Education/Training Program
DX: K59.09 Other constipation (principal)
CPT/HCPCS: 74018

== ENCOUNTER → 2024-08-23 | Outpatient (CLI) | payer MEDICARE, MEDICAID, SELFPAY ==
--- NOTE | 2024-08-23 08:00 | RAD_ITS ---
PROCEDURE: ABDOMEN SINGLE VIEW 08/23/2024 REASON FOR EXAM: SITZ MARKER DAY 5 TECHNIQUE: Single view abdomen. COMPARISON: 08/21/2024 FINDINGS: See impression RAD/Abdomen Single View IMPRESSION: Multiple radiopaque markers are present in the region of the distal small bowel and throughout the proximal colon, similar to prior. Fecal retention. IUD in the pelvis. Osseous structures are intact. Reading Location: [facility]
[2024-08-25 14:08] LABS: Lamotrigine (Lamictal) Level 10.2 ug/mL (2.0-20.0)
== END | disposition home or self-care (01) ==
PROVIDERS: PCP Internal Medicine; Referring Provider Student in an Organized Health Care Education/Training Program; Visit Provider Psychiatry & Neurology Neurology
DX: G40.909 Epilepsy, unspecified, not intractable, without status epilepticus (principal); K59.09 Other constipation
CPT/HCPCS: 36415; 74018; 82542

== ENCOUNTER → 2024-10-03 | Outpatient (CLI) | payer MEDICARE, MEDICAID, SELFPAY ==
--- NOTE | 2024-10-03 10:39 | NM_ITS ---
PROCEDURE: GASTRIC EMPTYING STUDY 10/03/2024 REASON FOR EXAM: BLOATING COMPARISON: No relevant prior. TECHNIQUE: The patient ingested a standard meal of 1 cup of oatmeal with the radiopharmaceutical. Following ingestion, anterior and posterior gamma camera images were acquired at 60 second intervals for a total of 60 minutes. Regions of interest were drawn, and a geometric mean was used to calculate a [id number]. Medications taken in the past 24 hours that may affect gastric emptying: None Radiopharmaceutical: 1.1 mCi of Technetium Sulfur Colloid in oatmeal. FINDINGS: T half-life (min) 59 Percent activity remaining in stomach: 1 hour 52 % (normal 37-90%) Gastroesophageal reflux: Not demonstrated. NM/Gastric Emptying Study IMPRESSION: THERE IS 52% ACTIVITY REMAINING IN THE STOMACH AT 60 MINUTES, WITHIN THE NORMAL RANGE FOR GASTRIC EMPTYING. Reading Location: [place] [id number]
== END | disposition home or self-care (01) ==
LOC: NM 10:36
PROVIDERS: PCP Internal Medicine; Referring Provider Student in an Organized Health Care Education/Training Program; Visit Provider Student in an Organized Health Care Education/Training Program
DX: R14.0 Abdominal distension (gaseous) (principal); K59.09 Other constipation
CPT/HCPCS: 78264; A9541

== ENCOUNTER 2024-10-06 13:38 | Emergency (ER) | payer MEDICARE, MEDICAID, SELFPAY ==
[2024-10-06] VITALS (51 sets, daily range): BP systolic 99–149; BP diastolic 65–109; PULSE 77–125; RESP 14–38; TEMP 36.7–36.8; O2SAT 92–100; BMI 31.6
--- NOTE | 2024-10-06 14:09 | EKG12_ITS ---
Test Reason : SEIZURE Blood Pressure : */* mmHG Vent. Rate : 116 BPM Atrial Rate : 116 BPM P-R Int : 170 ms QRS Dur : 78 ms QT Int : 316 ms P-R-T Axes : 42 1 63 degrees QTcB Int : 439 ms Sinus tachycardia Nonspecific ST and T wave abnormality Abnormal ECG Confirmed by SVITLANA SALGADO, PEREZ ([id number]), web editor SALOME MENJIVAR ([id number]) on 10/09/2024 6:53:24 AM Referred By: Confirmed By: PEREZ SHANE MD
--- NOTE | 2024-10-06 14:12 | CT_ITS ---
PROCEDURE: BRAIN/HEAD WITHOUT CONTRAST 10/06/2024 REASON FOR EXAM: SEIZURE TECHNIQUE: Head CT without intravenous contrast. Coronal and Sagittal reconstruction series were provided. One or more dose reduction techniques were used (e.g., Automated exposure control, adjustment of the mA and/or kV according to patient size, use of iterative reconstruction technique. RADIATION DOSE SUMMARY: CTDlvol: 44.99 mGy DLP: 812.98 mGycm COMPARISON: Head CT of 10/29/2022. FINDINGS: Brain: Normal. No extra-axial fluid collection is noted. No orbital abnormality is seen. CSF Spaces: Normal Sinuses/Mastoids: Clear at visualized levels Bones: No fracture or other acute osseous change is seen CT/Brain/Head without Contrast IMPRESSION: No intracranial hemorrhage or other acute process is seen Reading Location: [address]
[2024-10-06 14:29] LABS: Absolute Lymphocyte Count 1.27 X10^3/uL (0.83-4.51); Basophil# 0.04 X10^3/uL; Basophil% 0.3 % (0-1); Eosinophil# 0.05 X10^3/uL; Eosinophils% 0.4 % (0-5); Hematocrit 41.3 % (37-47); Lymphocyte # 1.27 X10^3/ul (0.83-4.51); Lymphocyte % 9.8 % (19-41); Mean Corp Hgb Conc 33.9 g/dL (32-36); Mean Corpuscular Hgb 29.9 pg (27.0-32.0); Mean Corpuscular Volume 88.1 fL (81-99); Mean Platelet Vol. 9.5 fl (6.2-12.0); Monocyte# 0.54 X10^3/uL; Monocyte% 4.2 % (0-10); NRBC Flagged by Analyzer 0 % (0-5); Neutrophil # 10.98 X10^3/uL (2.7-7.7); Neutrophil % 84.9 % (47-70); Platelet Count 247 K/mm3 (150-450); RBC Distribution Width CV 13.1 % (11.6-14.6); RBC Distribution Width SD 42.1 fl (35.1-43.9); Red Blood Count 4.69 M/mm3 (4.2-5.4); White Blood Count 12.9 K/mm3 (4.4-11.0)
--- NOTE | 2024-10-06 14:37 | EDS_ITS ---
<Statement entered by Kaiden Rausch DO - 10/07/24 21:51> Patient was seen and examined with physician camp assistant Renee All components of the history and physical confirmed and agreed. History of present illness and physical exam: Patient is a 34-year-old female past medical history of seizures, TBI, depression, myasthenia gravis who presented to the emergency department with concern for not acting normal after her seizure. According to the patient's mother at bedside she notes that she had a seizure earlier and since then she had not been acting her normal self. She seemed confused and postictal on the phone therefore her mother went to check on her. She states that she did take her diazepam nasal spray and they note that usually this works however this did not therefore they called EMS to have her brought here for further evaluation management. Mom reports that she is only answering one-word sentences and appears shaky. She states that she has been taking her medications as prescribed not missing doses. Mother noted that recently she has been talking a lot about a high school loved 1 that she used to date and he on this exact date. She states that she had a counseling appointment earlier today. Review of systems: Agreed with above Physical exam: Agree with above MDM Patient is a 34-year-old female who presents to the emergency department the chief complaint of seizure. On the differential diagnose includes Melamin to electrolyte abnormality, medication noncompliance, breakthrough seizures, increased stress. Once workup is obtained reviewed she will be reevaluated. Patient's CBC was reviewed and showed a white blood count of 12.9, hemoglobin 14, platelet count was noted be 247. Patient sodium normal 141, potassium at 3.4, creatinine was 0.68. Patient's TSH was 2.59 Free T4 and T3 were 0.90 and 3.2 respectively, drug screen negative, urinalysis did not show any evidence of infection and test was negative. Patient's chest x-ray reviewed by myself and by radiology showed no acute cardiopulmonary processes. Patient's CT head reviewed showed no acute intracranial hemorrhage or other acute processes. Patient EKG reviewed showed sinus tachycardia the rate of 160 bpm. Renee did speak with the patient independently and she was acting back to baseline and having normal conversation. Patient was given Ativan as she was feeling anxious. Patient's case was signed out to oncoming provider while the rest of her workup was pending. Final impression: Seizure History of TBI Disposition: Signed out to oncoming provider Supervising attending attestation: Kaiden Rausch D.O. HPI <BRANDON Orr - Last Filed: 10/06/24 21:27> History of Present Illness Chief Complaint: Seizure Narrative Narrative: Patient presenting today due to concerns for a seizure that occurred at around noon today. She has a history of epilepsy and myasthenia gravis. She called her mom shortly after noon and said that she needed help. She seemed confused and postictal on the phone, her mom suspected that she likely had a seizure and came to evaluate her. Patient still was somewhat confused/postictal despite taking her diazepam nasal spray and mom reports that she usually is not postictal for more than 20 minutes and decided to call EMS. Mom reports that she is only answering in one-word sentences and appears shaky. She has been taking her medication as prescribed, she denies hitting her head or any trauma resulting from the seizure. She denies any recent illness, fevers, and chills. [facility] <BRANDON Orr - Last Filed: 10/06/24 21:27> [facility] Medical History Encounter to establish care Chronic abdominal pain Chronic constipation Hx of peripheral vascular disease Normal echocardiogram (~05/18/16) Anemia Migraine headache Injury of head and neck Seizures Difficulty swallowing Difficulty chewing Non-smoker Shortness of breath on exertion Leg cramps History of stress test Chest pain Myasthenia gravis Home Medications ?Medication ?Instructions ?Recorded ?Last Taken ?Type levonorgestrel (Mirena) 20 mcg intrauterine UD 10/14/20 Unknown History control diazepam 10 mg/spray (0.1 mL) 10 mg intranasal PRN PRN Seizures 08/08/22 Unknown History nasal spray (Valtoco) zonisamide 100 mg capsule 300 mg (3 x 100 mg) PO QPM 1 06/13/23 Unknown Rx seizures #90 caps escitalopram oxalate 10 mg tablet 10 mg PO QHS #30 tab s 07/06/24 Unknown Rx (Lexapro) lamotrigine 250 mg tablet,extended 250 mg PO BID seizu res #60 tabs 07/06/24 Unknown Rx release 24 hr zonisamide 100 mg capsule See Rx Instructions .Route 0 07/06/24 Unknown Rx .COMPLEX seizures #150 caps ravulizumab-cwvz 100 mg/mL 3,300 mg (33 mL) .Route .q8 weeks 07/27/24 Unknown Rx intravenous solution (Ultomiris) #33 mL Allergy/AdvReac Type Severity Reaction Status Date / Time levetiracetam (From Keppra) Allergy Other Verified 10/06/24 13:41 Penicillins Allergy Rash Verified 10/06/24 13:41 phenytoin (From Dilantin) Allergy PT UNSURE Verified 10/06/24 13:41 OF REACTION prochlorperazine (From Allergy Other Verified 10/06/24 13:41 Compazine) shellfish derived Allergy Other Verified 10/06/24 13:41 soy AdvReac NEEDS Verified 10/06/24 13:41 FOLLOW-UP Family History Mother Heart disease Cervical cancer Father No problems noted. Surgical History History of colonoscopy (04/02/22) Hx of appendectomy Hx of total hip arthroplasty Hx of thymectomy Social History household members: children current occupational status: disabled pets and animals: Yes pets and animals: dog(s) and turtle(s) Smoking Status: Never smoker second hand exposure: Yes alcohol intake: never substance use type: does not use caffeine: Yes (1 cup coffee daily on avg) Type: coffee do you feel safe at home: Yes ROS <BRANDON Orr - Last Filed: 10/06/24 21:27> ROS ED Constitutional Constitutional ED: Denies chills or fever(s) Cardiovascular Cardiovascular: Denies chest pain Respiratory/Chest Respiratory/Chest: Denies dyspnea Gastrointestinal Gastrointestinal: Denies abdominal pain, nausea or vomiting Genitourinary Genitourinary ED: Denies dysuria, hematuria or urinary frequency Musculoskeletal Musculoskeletal: Denies arthralgias or myalgias Integumentary Denies rash Neurologic Neurologic: Denies weakness EXAM <BRANDON Orr - Last Filed: 10/06/24 21:27> Physical Exam Const Vital Signs: 10/06/24 13:41 10/06/24 14:40 10/06/24 15:00 Temperature 98.1 F Temperature Source Oral Pulse Rate 123 H 122 H 124 H Respiratory Rate 22 H 16 19 H Respiratory Pattern Blood Pressure 144/82 H 129/82 H 117/69 Blood Pressure Mean 102 97 85 Pulse Ox 100 100 98 Oxygen Delivery Method Room Air Room Air Fraction of Inspired Oxygen (FIO2) 10/06/24 15:15 10/06/24 15:30 10/06/24 15:45 Temperature Temperature Source Pulse Rate 112 H 114 H 125 H Respiratory Rate 14 24 H 23 H Respiratory Pattern Blood Pressure 124/83 H 137/85 H 121/90 H Blood Pressure Mean 95 100 98 Pulse Ox 100 100 99 Oxygen Delivery Method Fraction of Inspired Oxygen (FIO2) 10/06/24 16:00 10/06/24 16:00 10/06/24 16:15 Temperature Temperature Source Pulse Rate 121 H 119 H 121 H Respiratory Rate 15 19 H 17 Respiratory Pattern Blood Pressure 115/103 H 115/103 H Blood Pressure Mean 107 110 Pulse Ox 99 100 Oxygen Delivery Method Fraction of Inspired Oxygen (FIO2) 10/06/24 16:16 10/06/24 16:30 10/06/24 16:45 Temperature Temperature Source Pulse Rate 108 H 114 H 117 H Respiratory Rate 19 H 21 H 20 H Respiratory Pattern Blood Pressure 119/77 130/89 H 126/87 H Blood Pressure Mean 91 102 99 Pulse Ox 98 100 98 Oxygen Delivery Method Fraction of Inspired Oxygen (FIO2) 10/06/24 17:00 10/06/24 17:00 10/06/24 17:15 Temperature Temperature Source Pulse Rate 121 H 121 H 106 H Respiratory Rate 21 H 17 16 Respiratory Pattern Blood Pressure 125/74 H 125/74 H 114/70 Blood Pressure Mean 91 88 83 Pulse Ox 99 100 Oxygen Delivery Method Room Air Fraction of Inspired Oxygen (FIO2) 10/06/24 17:30 10/06/24 17:45 10/06/24 18:00 Temperature Temperature Source Pulse Rate 123 H 123 H 121 H Respiratory Rate 25 H 24 H Respiratory Pattern Blood Pressure 125/90 H 128/72 H 140/109 H Blood Pressure Mean 101 86 119 Pulse Ox 99 Oxygen Delivery Method Fraction of Inspired Oxygen (FIO2) 10/06/24 18:00 10/06/24 18:15 10/06/24 18:27 Temperature Temperature Source Pulse Rate 112 H 109 H 77 Respiratory Rate 23 H 28 H 14 Respiratory Pattern Blood Pressure 128/92 H 140/109 H 99/67 Blood Pressure Mean 103 120 79 Pulse Ox 96 Oxygen Delivery Method Fraction of Inspired Oxygen (FIO2) 10/06/24 18:30 10/06/24 18:33 10/06/24 18:45 Temperature Temperature Source Pulse Rate 98 119 H 121 H Respiratory Rate 38 H 14 22 H Respiratory Pattern Normal Blood Pressure 109/65 125/73 H Blood Pressure Mean 80 88 Pulse Ox 95 95 97 Oxygen Delivery Method Fraction of Inspired Oxygen (FIO2) 40 10/06/24 19:00 10/06/24 19:00 10/06/24 19:12 Temperature Temperature Source Pulse Rate 117 H 119 H 112 H Respiratory Rate 14 14 14 Respiratory Pattern Blood Pressure 117/75 117/75 118/75 Blood Pressure Mean 89 87 89 Pulse Ox 93 93 93 Oxygen Delivery Method Mechanical Ventilator Fraction of Inspired Oxygen (FIO2) 10/06/24 19:12 10/06/24 19:15 10/06/24 19:15 Temperature Temperature Source Pulse Rate 110 H 106 H Respiratory Rate 14 14 Respiratory Pattern Blood Pressure 118/75 115/76 Blood Pressure Mean 89 89 Pulse Ox 93 93 92 Oxygen Delivery Method Fraction of Inspired Oxygen (FIO2) 30 10/06/24 19:20 10/06/24 19:21 10/06/24 19:25 Temperature Temperature Source Pulse Rate 113 H 109 H 114 H Respiratory Rate 14 14 14 Respiratory Pattern Blood Pressure 109/72 109/72 139/91 H Blood Pressure Mean 83 84 106 Pulse Ox 92 92 93 Oxygen Delivery Method Mechanical Ventilator Fraction of Inspired Oxygen (FIO2) 30 10/06/24 19:30 10/06/24 19:35 10/06/24 19:40 Temperature Temperature Source Pulse Rate 117 H 111 H Respiratory Rate 19 H 14 Respiratory Pattern Blood Pressure 116/86 H 149/82 H 123/79 H Blood Pressure Mean 97 103 93 Pulse Ox 93 95 Oxygen Delivery Method Fraction of Inspired Oxygen (FIO2) 10/06/24 19:45 10/06/24 19:50 10/06/24 19:55 Temperature Temperature Source Pulse Rate 106 H 110 H Respiratory Rate 14 14 Respiratory Pattern Blood Pressure 128/85 H 122/80 H 129/87 H Blood Pressure Mean 98 92 99 Pulse Ox 92 93 Oxygen Delivery Method Fraction of Inspired Oxygen (FIO2) 10/06/24 20:00 10/06/24 20:00 10/06/24 20:05 Temperature Temperature Source Pulse Rate 105 H 103 H 97 Respiratory Rate 17 14 14 Respiratory Pattern Blood Pressure 116/82 H 116/82 H 124/70 H Blood Pressure Mean 93 93 85 Pulse Ox 99 93 92 Oxygen Delivery Method Mechanical Ventilator Fraction of Inspired Oxygen (FIO2) 10/06/24 20:10 10/06/24 20:12 10/06/24 20:15 Temperature Temperature Source Pulse Rate 98 107 H Respiratory Rate 14 14 Respiratory Pattern Blood Pressure 119/88 H 119/88 H 120/98 H Blood Pressure Mean 99 98 106 Pulse Ox 93 95 Oxygen Delivery Method Mechanical Ventilator Fraction of Inspired Oxygen (FIO2) 30 10/06/24 20:20 10/06/24 20:25 10/06/24 20:29 Temperature 98.2 F Temperature Source Pulse Rate 102 H 104 H Respiratory Rate 14 14 Respiratory Pattern Blood Pressure 120/82 H 123/78 H 120/82 H Blood Pressure Mean 96 91 94 Pulse Ox 93 94 Oxygen Delivery Method Fraction of Inspired Oxygen (FIO2) 10/06/24 20:30 10/06/24 20:35 10/06/24 20:40 Temperature Temperature Source Pulse Rate 111 H 111 H Respiratory Rate 14 14 Respiratory Pattern Blood Pressure 126/86 H 117/84 H 128/79 H Blood Pressure Mean 99 95 92 Pulse Ox 96 97 Oxygen Delivery Method Fraction of Inspired Oxygen (FIO2) 10/06/24 20:45 10/06/24 20:50 10/06/24 20:55 Temperature Temperature Source Pulse Rate 106 H 103 H 99 Respiratory Rate 14 14 14 Respiratory Pattern Blood Pressure 120/88 H 126/77 H 115/85 H Blood Pressure Mean 99 91 95 Pulse Ox 97 96 97 Oxygen Delivery Method Fraction of Inspired Oxygen (FIO2) 10/06/24 21:00 10/06/24 21:05 10/06/24 21:10 Temperature Temperature Source Pulse Rate 111 H 115 H 116 H Respiratory Rate 14 14 16 Respiratory Pattern Blood Pressure 125/88 H 126/83 H 128/85 H Blood Pressure Mean 100 96 99 Pulse Ox 97 98 99 Oxygen Delivery Method Fraction of Inspired Oxygen (FIO2) Positive well nourished, well developed and no apparent distress General Appearance ED: well developed HEENT Reports normocephalic and head/scalp atraumatic Mouth ED: Yes moist mucous membranes normal Eyes PERRL and EOMs intact bilaterally Neck full ROM and supple Chest Wall inspection of chest normal Resp normal respiratory effort and clear to auscultation bilaterally Cardio regular rhythm Rate: tachycardic GI soft to palpation, non-tender, non-distended and no masses Back/Spine normal ROM and normal to inspection Extremity normal to inspection and full ROM Neuro oriented x3, CN's II-XII intact bilaterally, moves all extremities, no focal motor deficits and no sensory deficits noted Sensorium / Orientation: awake and alert Psych mental status grossly normal and thought process normal Skin no rashes or lesions noted and no wounds <Dr. Vijay Jones, DO - Last Filed: 10/07/24 00:13> Physical Exam Const Vital Signs: 10/06/24 13:41 10/06/24 14:40 10/06/24 15:00 Temperature 98.1 F Temperature Source Oral Pulse Rate 123 H 122 H 124 H Respiratory Rate 22 H 16 19 H Respiratory Pattern Blood Pressure 144/82 H 129/82 H 117/69 Blood Pressure Mean 102 97 85 Pulse Ox 100 100 98 Oxygen Delivery Method Room Air Room Air Fraction of Inspired Oxygen (FIO2) 10/06/24 15:15 10/06/24 15:30 10/06/24 15:45 Temperature Temperature Source Pulse Rate 112 H 114 H 125 H Respiratory Rate 14 24 H 23 H Respiratory Pattern Blood Pressure 124/83 H 137/85 H 121/90 H Blood Pressure Mean 95 100 98 Pulse Ox 100 100 99 Oxygen Delivery Method Fraction of Inspired Oxygen (FIO2) 10/06/24 16:00 10/06/24 16:00 10/06/24 16:15 Temperature Temperature Source Pulse Rate 121 H 119 H 121 H Respiratory Rate 15 19 H 17 Respiratory Pattern Blood Pressure 115/103 H 115/103 H Blood Pressure Mean 107 110 Pulse Ox 99 100 Oxygen Delivery Method Fraction of Inspired Oxygen (FIO2) 10/06/24 16:16 10/06/24 16:30 10/06/24 16:45 Temperature Temperature Source Pulse Rate 108 H 114 H 117 H Respiratory Rate 19 H 21 H 20 H Respiratory Pattern Blood Pressure 119/77 130/89 H 126/87 H Blood Pressure Mean 91 102 99 Pulse Ox 98 100 98 Oxygen Delivery Method Fraction of Inspired Oxygen (FIO2) 10/06/24 17:00 10/06/24 17:00 10/06/24 17:15 Temperature Temperature Source Pulse Rate 121 H 121 H 106 H Respiratory Rate 21 H 17 16 Respiratory Pattern Blood Pressure 125/74 H 125/74 H 114/70 Blood Pressure Mean 91 88 83 Pulse Ox 99 100 Oxygen Delivery Method Room Air Fraction of Inspired Oxygen (FIO2) 10/06/24 17:30 10/06/24 17:45 10/06/24 18:00 Temperature Temperature Source Pulse Rate 123 H 123 H 121 H Respiratory Rate 25 H 24 H Respiratory Pattern Blood Pressure 125/90 H 128/72 H 140/109 H Blood Pressure Mean 101 86 119 Pulse Ox 99 Oxygen Delivery Method Fraction of Inspired Oxygen (FIO2) 10/06/24 18:00 10/06/24 18:15 10/06/24 18:27 Temperature Temperature Source Pulse Rate 112 H 109 H 77 Respiratory Rate 23 H 28 H 14 Respiratory Pattern Blood Pressure 128/92 H 140/109 H 99/67 Blood Pressure Mean 103 120 79 Pulse Ox 96 Oxygen Delivery Method Fraction of Inspired Oxygen (FIO2) 10/06/24 18:30 10/06/24 18:33 10/06/24 18:45 Temperature Temperature Source Pulse Rate 98 119 H 121 H Respiratory Rate 38 H 14 22 H Respiratory Pattern Normal Blood Pressure 109/65 125/73 H Blood Pressure Mean 80 88 Pulse Ox 95 95 97 Oxygen Delivery Method Fraction of Inspired Oxygen (FIO2) 40 10/06/24 19:00 10/06/24 19:00 10/06/24 19:12 Temperature Temperature Source Pulse Rate 117 H 119 H 112 H Respiratory Rate 14 14 14 Respiratory Pattern Blood Pressure 117/75 117/75 118/75 Blood Pressure Mean 89 87 89 Pulse Ox 93 93 93 Oxygen Delivery Method Mechanical Ventilator Fraction of Inspired Oxygen (FIO2) 10/06/24 19:12 10/06/24 19:15 10/06/24 19:15 Temperature Temperature Source Pulse Rate 110 H 106 H Respiratory Rate 14 14 Respiratory Pattern Blood Pressure 118/75 115/76 Blood Pressure Mean 89 89 Pulse Ox 93 93 92 Oxygen Delivery Method Fraction of Inspired Oxygen (FIO2) 30 10/06/24 19:20 10/06/24 19:21 10/06/24 19:25 Temperature Temperature Source Pulse Rate 113 H 109 H 114 H Respiratory Rate 14 14 14 Respiratory Pattern Blood Pressure 109/72 109/72 139/91 H Blood Pressure Mean 83 84 106 Pulse Ox 92 92 93 Oxygen Delivery Method Mechanical Ventilator Fraction of Inspired Oxygen (FIO2) 30 10/06/24 19:30 10/06/24 19:35 10/06/24 19:40 Temperature Temperature Source Pulse Rate 117 H 111 H Respiratory Rate 19 H 14 Respiratory Pattern Blood Pressure 116/86 H 149/82 H 123/79 H Blood Pressure Mean 97 103 93 Pulse Ox 93 95 Oxygen Delivery Method Fraction of Inspired Oxygen (FIO2) 10/06/24 19:45 10/06/24 19:50 10/06/24 19:55 Temperature Temperature Source Pulse Rate 106 H 110 H Respiratory Rate 14 14 Respiratory Pattern Blood Pressure 128/85 H 122/80 H 129/87 H Blood Pressure Mean 98 92 99 Pulse Ox 92 93 Oxygen Delivery Method Fraction of Inspired Oxygen (FIO2) 10/06/24 20:00 10/06/24 20:00 10/06/24 20:05 Temperature Temperature Source Pulse Rate 105 H 103 H 97 Respiratory Rate 17 14 14 Respiratory Pattern Blood Pressure 116/82 H 116/82 H 124/70 H Blood Pressure Mean 93 93 85 Pulse Ox 99 93 92 Oxygen Delivery Method Mechanical Ventilator Fraction of Inspired Oxygen (FIO2) 10/06/24 20:10 10/06/24 20:12 10/06/24 20:15 Temperature Temperature Source Pulse Rate 98 107 H Respiratory Rate 14 14 Respiratory Pattern Blood Pressure 119/88 H 119/88 H 120/98 H Blood Pressure Mean 99 98 106 Pulse Ox 93 95 Oxygen Delivery Method Mechanical Ventilator Fraction of Inspired Oxygen (FIO2) 30 10/06/24 20:20 10/06/24 20:25 10/06/24 20:29 Temperature 98.2 F Temperature Source Pulse Rate 102 H 104 H Respiratory Rate 14 14 Respiratory Pattern Blood Pressure 120/82 H 123/78 H 120/82 H Blood Pressure Mean 96 91 94 Pulse Ox 93 94 Oxygen Delivery Method Fraction of Inspired Oxygen (FIO2) 10/06/24 20:30 10/06/24 20:35 10/06/24 20:40 Temperature Temperature Source Pulse Rate 111 H 111 H Respiratory Rate 14 14 Respiratory Pattern Blood Pressure 126/86 H 117/84 H 128/79 H Blood Pressure Mean 99 95 92 Pulse Ox 96 97 Oxygen Delivery Method Fraction of Inspired Oxygen (FIO2) 10/06/24 20:45 10/06/24 20:50 10/06/24 20:55 Temperature Temperature Source Pulse Rate 106 H 103 H 99 Respiratory Rate 14 14 14 Respiratory Pattern Blood Pressure 120/88 H 126/77 H 115/85 H Blood Pressure Mean 99 91 95 Pulse Ox 97 96 97 Oxygen Delivery Method Fraction of Inspired Oxygen (FIO2) 10/06/24 21:00 10/06/24 21:05 10/06/24 21:10 Temperature Temperature Source Pulse Rate 111 H 115 H 116 H Respiratory Rate 14 14 16 Respiratory Pattern Blood Pressure 125/88 H 126/83 H 128/85 H Blood Pressure Mean 100 96 99 Pulse Ox 97 98 99 Oxygen Delivery Method Fraction of Inspired Oxygen (FIO2) [facility] <BRANDON Orr - Last Filed: 10/06/24 21:27> [facility] Narrative Medical decision making narrative: Patient presenting today due to concerns for a seizure that occurred this afternoon around noon. She called her mom at some point after the seizure and still sounded postictal on the phone, mom then came to evaluate her and she had not yet returned to her baseline so EMS was called. Patient is alert and oriented to person, she is unable to tell me the date or year. Mom reports that this is not normal for her to be confused like this. Broad workup will be obtained. On further evaluation, mom reported that today is the date of patient's ex-boyfriend's , patient does admit to feeling anxious and sad about this and was given IV Ativan. CBC reveals a WBC of 12.9, her BMP, UA, urine drug screen, are unremarkable. Head CT negative for any acute intracranial abnormality. On reexamination mom reported that her daughter was not able to tell her what her service dog's name was or what her son's name was. I had mom step out of the room and the patient was able to tell me her dog's name, her son's name, her mother's name, and was speaking in sentences with me. She admitted that she just did not feel like talking much to her mother. I suspect that she likely is not talking much due to anxiety/ psychiatric reasons. Patient was ordered additional IV fluids due to persistent tachycardia. As she was getting her second liter, mom came out of the room and grabbed me to tell me she had concerns that patient was not able to tell her where her seizure medication was in her home. I then went into the room and asked her where her seizure medication was and she reported,it is here over my head and repeated that sentence about 5 times. Patient now appears confused. Given her confusion/AMS, felt she would benefit from admission. However, she began to have a tonic-clonic seizure that lasted about 30 seconds and was given 2 mg IV Ativan. She became apneic and discolored and was ultimately intubated by the attending physician and placed on a propofol and Versed drip. Given concern for status epilepticus I feel she would benefit from transfer. Initially we tied to transfer her to [facility] as she has been there in the past, however, they do not accept her insurance. After speaking with [facility], she was excepted by neuro ICU Dr. Lujan. She remains in stable condition. They requested that she receive her home antiseizure medications. We do not have zon isamide here but she was given Lamictal via NG tube. Patient currently awaiting transfer but remains stable. Lab Data Attestation: I reviewed the patient's lab results. Labs: Laboratory Results - last 24 hr 10/06/24 10/06/24 10/06/24 14:05 15:46 18:49 WBC 12.9 H RBC 4.69 Hgb 14.0 Hct 41.3 MCV 88.1 MCH 29.9 MCHC 33.9 RDW Std Deviation 42.1 RDW Coeff of Mariella 13.1 Plt Count 247 MPV 9.5 Immature Gran % (Auto) 0.400 Neut % (Auto) 84.9 H Lymph % (Auto) 9.8 L Stevens % (Auto) 4.2 Eos % (Auto) 0.4 Baso % (Auto) 0.3 Absolute Neuts (auto) 11.0 H Absolute Lymphs (auto) 1.27 Nucleated RBC % 0 Sodium 141 Potassium 3.4 Chloride 110 H Carbon Dioxide 18.0 L Anion Gap 13 BUN 7 Creatinine 0.68 L Estim Creat Clear Calc 102.45 Est GFR (MDRD) Non-Af 116 BUN/Creatinine Ratio 10.5 Glucose 127 H Lactic Acid 1.9 Calcium 9.2 Total Creatine Kinase 46 Triglycerides 160 TSH 2.590 Free T4 0.90 Free T3 pg/dL 3.2 Urine Color Straw Urine Clarity Clear Urine pH 6.5 Ur Specific Granger 1.010 Urine Protein Negative Urine Glucose (UA) Normal Urine Ketones Negative Urine Occult Blood Negative Urine Nitrite Negative Urine Bilirubin Negative Urine Urobilinogen Normal Ur Leukocyte Esterase Negative Urine RBC 0 SEEN Urine WBC 0-5 SEEN Ur Squamous Epith Cells 0-5 SEEN Urine Bacteria 0 SEEN Urine Mucus 0 SEEN Urine Test Negative Urine Opiates Screen NEGATIVE U Buprenorphine Qual NEGATIVE Ur Oxycodone Screen NEGATIVE Urine Methadone Screen NEGATIVE Urine Fentanyl Screen NEGATIVE Ur Barbiturates Screen NEGATIVE Ur Phencyclidine Scrn NEGATIVE Ur Amphetamines Screen NEGATIVE U Benzodiazepines Scrn NEGATIVE Urine Cocaine Screen NEGATIVE U Cannabinoids Screen NEGATIVE POC Glucose 10/06/24 20:37 WBC RBC Hgb Hct MCV MCH MCHC RDW Std Deviation RDW Coeff of Mariella Plt Count MPV Immature Gran % (Auto) Neut % (Auto) Lymph % (Auto) Stevens % (Auto) Eos % (Auto) Baso % (Auto) Absolute Neuts (auto) Absolute Lymphs (auto) Nucleated RBC % Sodium Potassium Chloride Carbon Dioxide Anion Gap BUN Creatinine Estim Creat Clear Calc Est GFR (MDRD) Non-Af BUN/Creatinine Ratio Glucose Lactic Acid Calcium Total Creatine Kinase Triglycerides TSH Free T4 Free T3 pg/dL Urine Color Urine Clarity Urine pH Ur Specific Granger Urine Protein Urine Glucose (UA) Urine Ketones Urine Occult Blood Urine Nitrite Urine Bilirubin Urine Urobilinogen Ur Leukocyte Esterase Urine RBC Urine WBC Ur Squamous Epith Cells Urine Bacteria Urine Mucus Urine Test Urine Opiates Screen U Buprenorphine Qual Ur Oxycodone Screen Urine Methadone Screen Urine Fentanyl Screen Ur Barbiturates Screen Ur Phencyclidine Scrn Ur Amphetamines Screen U Benzodiazepines Scrn Urine Cocaine Screen U Cannabinoids Screen POC Glucose 155 H ABG Data ABG results: ABG 10/06/24 19:10 Specimen Type ART Sample Site R Radial pH 7.32 L Bicarbonate Actual 18.4 L Total CO2 20 Base Excess -8 L O2 Saturation 98 O2 % 40.0 ABG pCO2 35.4 ABG pO2 107 H Owen Test Positive Respiration Rate 14 O2 Delivery Device Adult Vent Vent Mode AC Tidal Volume 450.0 POC PEEP 5 Radiography X-Ray: Read by ED Physician Diagnostic Testing: Clinical Impression(s) from Imaging Studies Brain CT 10/06/24 14:12 IMPRESSION: No intracranial hemorrhage or other acute process is seen Reading Location: [id number] Chest X-Ray 10/06/24 19:23 IMPRESSION: No acute cardiopulmonary process. Reading Location: [id number] EKG Initial EKG: Comments: 160 bpm, sinus tachycardia, no ST elevation, interpreted by attending ED physician <Dr. Vijay Jones, DO - Last Filed: 10/07/24 00:13> [facility] Narrative Medical decision making narrative: Patient presenting today due to concerns for a seizure that occurred this afternoon around noon. She called her mom at some point after the seizure and still sounded postictal on the phone, mom then came to evaluate her and she had not yet returned to her baseline so EMS was called. Patient is alert and oriented to person, she is unable to tell me the date or year. Mom reports that this is not normal for her to be confused like this. Broad workup will be obtained. On further evaluation, mom reported that today is the date of patient's ex-boyfriend's , patient does admit to feeling anxious and sad about this and was given IV Ativan. CBC reveals a WBC of 12.9, her BMP, UA, urine drug screen, are unremarkable. Head CT negative for any acute intracranial abnormality. On reexamination mom reported that her daughter was not able to tell her what her service dog's name was or what her son's name was. I had mom step out of the room and the patient was able to tell me her dog's name, her son's name, her mother's name, and was speaking in sentences with me. She admitted that she just did not feel like talking much to her mother. I suspect that she likely is not talking much due to anxiety/ psychiatric reasons. Patient was ordered additional IV fluids due to persistent tachycardia. As she was getting her second liter, mom came out of the room and grabbed me to tell me she had concerns that patient was not able to tell her where her seizure medication was in her home. I then went into the room and asked her where her seizure medication was and she reported,it is here over my head and repeated that sentence about 5 times. Patient now appears confused. Given her confusion/AMS, felt she would benefit from admission. However, she began to have a tonic-clonic seizure that lasted about 30 seconds and was given 2 mg IV Ativan. She became apneic and discolored and was ultimately intubated by the attending physician and placed on a propofol and Versed drip. Given concern for status epilepticus I feel she would benefit from transfer. Initially we tied to transfer her to [facility] as she has been there in the past, however, they do not accept her insurance. After speaking with [facility], she was excepted by neuro ICU Dr. Lujan. She remains in stable condition. They requested that she receive her home antiseizure medications. We do not have zonisamide here but she was given Lamictal via NG tube. Patient currently awaiting transfer but remains stable. Patient was turned over to me by Dr. Rausch@5:30 PM Brief history: 34-year-old female history of seizures presents with seizure and change in mental status Physical exam: On initial evaluation she was actively seizing and postictal without provide reliable history. She appeared to move all 4 extremities and a grand mal type pattern Labs and images reviewed (if obtained): CBC leukocytosis suggestive of system inflammation, no anemia or thrombocytopenia Lactate is wnl indicating no end-organ hypoperfusion and/or hypoxia. Urinalysis shows no evidence of urinary inflammation suggestive of UTI Urine tox cream BMP without evidence of significant electrolyte abnormalities, no anion gap, no acute kidney injury. CT scan of the brain shows no evidence of ICH Postintubation chest x-ray was reviewed myself shows adequate placement of ET tube and NG tube. MDM/plan: When I evaluated the patient she was actively seizing for approximate 30 seconds. After seizure she became apneic and desatted to as low as 0% on the monitor. Airway resuscitation was initiated. Jaw thrust and BVM were placed with improvement in oxygen levels to 99%. She was placed on 6 L nasal cannula oxygen and continued to be postictal. During her postictal period she continued to have transient desaturations as low as 89% which prompted endotracheal intubation. Please see below procedure note. Patient was then sedated with propofol and Versed for burst suppression also given her home Lamictal. Discussed with outside hospital for transfer given status epilepticus and need for close neurology evaluation and treatment. Patient was transferred in stable condition on the ventilator. The procedure was performed by myself. Indications: Hypoxia, postictal, not protecting airway, expected clinical course Procedure Description: Patient was preoxygenated with nasal cannula, used direct laryngoscopy with a hyper angulated S4 blade, use 802 with a grade 1 view of the cords. Patient intubated after 3 attempts (DL with pliable, DO with bougie, hyper angulated stylette and DL) given excessively anterior positioning. After repositioning and changing stylette's I was able to intubate without issue. There is no hypoxia or desaturations noted during procedure. Otherwise tolerated well. Post-Procedure Assessment: Tracheal intubation was confirmed with breath sounds auscultated equally bilaterally; appropriate color change with end tidal CO2 detector and waveform capnography. The patient tolerated the procedure well with no immediate complications. Total critical care time today provided was at least 35 minutes. This excludes separately billable procedures. There was a high probability of clinically significant/life threatening deterioration in the patient's condition which required my urgent intervention. Impression: 1. Status epilepticus Disposition: Transfer to outside facility Lab Data Labs: Laboratory Results - last 24 hr 10/06/24 10/06/24 10/06/24 14:05 15:46 18:49 WBC 12.9 H RBC 4.69 Hgb 14.0 Hct 41.3 MCV 88.1 MCH 29.9 MCHC 33.9 RDW Std Deviation 42.1 RDW Coeff of Mariella 13.1 Plt Count 247 MPV 9.5 Immature Gran % (Auto) 0.400 Neut % (Auto) 84.9 H Lymph % (Auto) 9.8 L Stevens % (Auto) 4.2 Eos % (Auto) 0.4 Baso % (Auto) 0.3 Absolute Neuts (auto) 11.0 H Absolute Lymphs (auto) 1.27 Nucleated RBC % 0 Sodium 141 Potassium 3.4 Chloride 110 H Carbon Dioxide 18.0 L Anion Gap 13 BUN 7 Creatinine 0.68 L Estim Creat Clear Calc 102.45 Est GFR (MDRD) Non-Af 116 BUN/Creatinine Ratio 10.5 Glucose 127 H Lactic Acid 1.9 Calcium 9.2 Total Creatine Kinase 46 Triglycerides 160 TSH 2.590 Free T4 0.90 Free T3 pg/dL 3.2 Urine Color Straw Urine Clarity Clear Urine pH 6.5 Ur Specific Granger 1.010 Urine Protein Negative Urine Glucose (UA) Normal Urine Ketones Negative Urine Occult Blood Negative Urine Nitrite Negative Urine Bilirubin Negative Urine Urobilinogen Normal Ur Leukocyte Esterase Negative Urine RBC 0 SEEN Urine WBC 0-5 SEEN Ur Squamous Epith Cells 0-5 SEEN Urine Bacteria 0 SEEN Urine Mucus 0 SEEN Urine Test Negative Urine Opiates Screen NEGATIVE U Buprenorphine Qual NEGATIVE Ur Oxycodone Screen NEGATIVE Urine Methadone Screen NEGATIVE Urine Fentanyl Screen NEGATIVE Ur Barbiturates Screen NEGATIVE Ur Phencyclidine Scrn NEGATIVE Ur Amphetamines Screen NEGATIVE U Benzodiazepines Scrn NEGATIVE Urine Cocaine Screen NEGATIVE U Cannabinoids Screen NEGATIVE POC Glucose 10/06/24 20:37 WBC RBC Hgb Hct MCV MCH MCHC RDW Std Deviation RDW Coeff of Mariella Plt Count MPV Immature Gran % (Auto) Neut % (Auto) Lymph % (Auto) Stevens % (Auto) Eos % (Auto) Baso % (Auto) Absolute Neuts (auto) Absolute Lymphs (auto) Nucleated RBC % Sodium Potassium Chloride Carbon Dioxide Anion Gap BUN Creatinine Estim Creat Clear Calc Est GFR (MDRD) Non-Af BUN/Creatinine Ratio Glucose Lactic Acid Calcium Total Creatine Kinase Triglycerides TSH Free T4 Free T3 pg/dL Urine Color Urine Clarity Urine pH Ur Specific Granger Urine Protein Urine Glucose (UA) Urine Ketones Urine Occult Blood Urine Nitrite Urine Bilirubin Urine Urobilinogen Ur Leukocyte Esterase Urine RBC Urine WBC Ur Squamous Epith Cells Urine Bacteria Urine Mucus Urine Test Urine Opiates Screen U Buprenorphine Qual Ur Oxycodone Screen Urine Methadone Screen Urine Fentanyl Screen Ur Barbiturates Screen Ur Phencyclidine Scrn Ur Amphetamines Screen U Benzodiazepines Scrn Urine Cocaine Screen U Cannabinoids Screen POC Glucose 155 H ABG Data ABG results: ABG 10/06/24 19:10 Specimen Type ART Sample Site R Radial pH 7.32 L Bicarbonate Actual 18.4 L Total CO2 20 Base Excess -8 L O2 Saturation 98 O2 % 40.0 ABG pCO2 35.4 ABG pO2 107 H Owen Test Positive Respiration Rate 14 O2 Delivery Device Adult Vent Vent Mode AC Tidal Volume 450.0 POC PEEP 5 Radiography Diagnostic Testing: Clinical Impression(s) from Imaging Studies Brain CT 10/06/24 14:12 IMPRESSION: No intracranial hemorrhage or other acute process is seen Reading Location: [id number] Chest X-Ray 10/06/24 19:23 IMPRESSION: No acute cardiopulmonary process. 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 lamotrigine 250 mg tablet extended release 24hr 250 mg PO BID Qty: 60 5RF escitalopram oxalate [Lexapro] 10 mg tablet 10 mg PO QHS Qty: 30 5RF Mirena 20 mcg/24 hours (6 yrs) 52 mg Intrauterine Device 20 mcg INTRAUTERINE UD Patient Comments: already placed Valtoco 10 mg/spray (0.1 mL) spray,non-aerosol 10 mg INTRANASAL PRN PRN (Reason: Seizures) Patient Comments: USE DIRECTED NASALLY 1 TO 2 TIMES A WEEK Ultomiris 100 mg/mL solution 3,300 mg .Route .q8 weeks Qty: 33 2RF Rx Instructions: 3300 mg IV infusion over 1 hour every 8 weeks. Primary Care Provider: Leander Patel Referrals: Leander Patel MD [Primary Care Provider] - Print Language: Panamanian Disposition Disposition: Acute Care Hospital Discharge Location: [facility] Discharge Date/Time: 10/06/24 22:06
[2024-10-06] MEDS: 0.9% Normal Saline (1000mL) 1,000 ML 999 ML IV ×2 (14:42→17:10)
[2024-10-06 15:15] LABS: Anion Gap 13 (5-15); BUN 7 mg/dL (4-19); BUN/Creat Ratio 10.5 RATIO (10-20); Calcium,Total 9.2 mg/dL (7.6-11.0); Chloride 110 mmol/L (98-108); Creatinine, Serum 0.68 mg/dL (0.70-1.20); EST Glomerular Filtration Rate 116 (>60); Estimated Creatinine Clearance 102.45 ml/min (50-250); Glucose 127 mg/dL (70-99); Potassium 3.4 mmol/L (3.3-5.1); Sodium Level 141 mmol/L (133-145)
[2024-10-06] MEDS: Lorazepam 2 MG/ML WCH Syringe 0.5 MG IV (15:17)
[2024-10-06 15:49] LABS: Bacteria 0 SEEN /hpf (None Seen); Mucous, Urine 0 SEEN /hpf (<or=2+); Red Blood Cells-Urine 0 SEEN /hpf (0-5)
[2024-10-06 16:08] LABS: Color, Urine Straw (Yellow); Glucose, Dipstick Normal (Normal); Ketone-Dipstick Negative (Negative); Leukocyte Esterase-Dipstick Negative /ul (Negative); Nitrite-Dipstick Negative (Negative); Occult Blood-Urine Negative /ul (Negative); Protein-Dipstick Negative (Negative); Urine Bilirubin Dipstick Negative (Negative); Urine Clarity Clear (Clear); Urine Urobilinogen Normal (Normal); Urine pH 6.5 (5.0 - 8.0)
[2024-10-06 16:21] LABS: Amphetamine Urine NEGATIVE (<1000 ng/mL); Barbiturate Urine NEGATIVE (< 200 ng/mL); Benzodiazepine Urine NEGATIVE (< 200 ng/mL); Buprenorphine Urine NEGATIVE (< 200 ng/mL); Cocaine Urine NEGATIVE (< 300 ng/mL); Fentanyl, Urine NEGATIVE; Methadone Urine NEGATIVE (< 300 ng/mL); Opiates Urine NEGATIVE (< 300 ng/mL); Oxycodone, Urine NEGATIVE (< 100 ng/mL); PCP Urine NEGATIVE (< 25 ng/mL); THC Urine NEGATIVE (< 50 ng/mL)
[2024-10-06 16:29] LABS: Free T3 3.2 pg/mL (2.18-3.98)
[2024-10-06 16:36] LABS: Internal QC Validated? YES +Cl - CLEAR BKGD; Pregnancy, Urine Negative Negative; Record Kit Lot#,Urine Preg 947241
[2024-10-06 17:00] LABS: Squamous Epithelial Cells - UA 0-5 SEEN /hpf (5-10); White Blood Cells 0-5 SEEN /hpf (0-5)
[2024-10-06] MEDS: Lorazepam 2 MG/ML WCH Syringe IV (18:20)
[2024-10-06] MEDS: Rocuronium Bromide 50 MG/5 ML Vial 100 MG IV (18:30)
[2024-10-06] MEDS: Propofol 10MG/Ml 1,000 MG/100 ML Bottle 4.4 MG CONT INF (18:44)
[2024-10-06] MEDS: Propofol 200 MG/20 ML Vial 80 MG IV BOLUS (18:56)
[2024-10-06] MEDS: Midazolam 50 MG in 0.9% Normal Saline (100mL Bag) 90 ML CONT INF (19:07)
[2024-10-06 19:14] LABS: Allen Test Positive; Base Excess -8 mmol/L (-2 to +2); Bicarbonate 18.4 mmol/L (22-26); Blood Gas Specimen Type ART; Mode AC; O2 Delivery Device Adult Vent; PEEP 5; PO2 107 mmHG (75-100); RR 14; SITE R Radial; SO2 98 % (95-99); Total Carbon Dioxide 20 mmol/L; pCO2 35.4 mmHg (35-45); pH 7.32 (7.35-7.45)
--- NOTE | 2024-10-06 19:15 | ED.RN ---
Patient moving hands during lab draws, nonviolent
--- NOTE | 2024-10-06 19:15 | ED.RN ---
Patient attempting to move hands during blood draw, nonviolent soft restraints applied bilaterally for patient safety to prevent tube/line removal. Dr. Jones notified.
--- NOTE | 2024-10-06 19:23 | RAD_ITS ---
EXAM: XR Chest, 1 View CLINICAL INDICATION: INTUBATION TECHNIQUE: Frontal view of the chest. COMPARISON: No relevant prior studies available. FINDINGS: LUNGS AND PLEURAL SPACES: See below. HEART: Unremarkable. No cardiomegaly. MEDIASTINUM: Unremarkable. Normal mediastinal contour. BONES/JOINTS: Unremarkable. No acute fracture. TUBES, LINES AND DEVICES: Right-sided Mediport with the distal tip in the SVC. No pneumothorax. The endotracheal tube (ETT) is in satisfactory position. Enteric tube tip in the stomach. RAD/Chest 1 View (Portable) IMPRESSION: No acute cardiopulmonary process. Reading Location: [id number]
[2024-10-06 19:51] LABS: Lactic Acid 1.9 mmol/L (0.0-2.0)
--- NOTE | 2024-10-06 19:53 | PCA ---
PT ACCEPTED DR. 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
--- NOTE | 2024-10-06 20:02 | CM.ED ---
Social work Reason for referral: support for patient's mother Referral source: Rupal MENDEZ SW was approached by Rupal MENDEZ asking for support for patient's mother, Genny, in the waiting room as Genny was emotional due to patient having to be intubated after another seizure. SW entered waiting room as Rupal MENDEZ was providing emotional support and answering questions for Genny. SW introduced self and role at [facility] to Genny and helped provide emotional support to Genny as needed. Genny stated patient has a 13 year old son who has high-functioning autism and Genny stated patient's intent to shield patient's son from as much of patient's medical struggles as possible. Patient has reportedly had epilepsy since age 11 and has also struggled with myasthenia gravis over the last few years. Genny tearfully stated how frustrating and unfair it has been to watch patient's career goals and life aspirations leave due to patient's disability. Genny discussed the ways patient and patient's family have been grateful for the care received at [facility], [facility], and surrounding hospitals. Genny reported patient having trust issues with people due to patient's first boyfriend dying by suicide and then patient's ex-fiance giving up on her when patient was diagnosed with myasthenia gravis. Patient reportedly does not speak to patient's siblings either and only has support from patient's parents, Warren and Genny. Genny discussed feeling grateful for the support of and [facility] nursing staff throughout this current situation. Actively listened and provided empathic support to Genny as needed; SW to remain available as needed until transfer to next hospital. Alma Chavarria, CLIENT EXPERIENCE MANAGER, GROUND TRANSPORTATION OPERATOR
[2024-10-06 20:03] LABS: CPK Total, Creatine Kinase 46 U/L (24-195); Triglycerides 160 mg/dL
[2024-10-06 20:57] LABS: Bedside Glucose 155 mg/dL (74-106)
[2024-10-06] MEDS: lamoTRIgine 100 MG Tablet 250 MG NG (21:42)
[2024-10-10 13:08] LABS: Lamotrigine (Lamictal) Level 8.6 ug/mL (2.0-20.0)
== END 2024-10-06 22:06 | disposition short-term general hospital (02) ==
PROVIDERS: Emergency Medicine; Physician Assistant; Emergency Provider Emergency Medicine; PCP Internal Medicine; Visit Provider Emergency Medicine
DX: G40.401 Other generalized epilepsy and epileptic syndromes, not intractable, with status epilepticus (principal); G70.00 Myasthenia gravis without (acute) exacerbation; R09.02 Hypoxemia; Z79.899 Other long term (current) drug therapy
CPT/HCPCS: 31500; 31720; 36591; 36600; 51702; 70450; 71045; 80048; 80307; 81001; 81025; 82542; 82550; 82803; 82962; 83605; 84439; 84443; 84478; 84481; 85025; 93005; 94002; 96361; 96365; 96366; 96375; 96376; 99252; 99285; A4216; G0463

== ENCOUNTER → 2024-10-13 | Outpatient (CLI) | payer MEDICARE, MEDICAID, SELFPAY ==
--- NOTE | 2024-10-13 16:00 | RAD_ITS ---
PROCEDURE: CHEST PA AND LATERAL 10/13/2024 REASON FOR EXAM: S/P INTUBATION TECHNIQUE: CHEST PA AND LATERAL COMPARISON: 10/06/2024. FINDINGS: Right Port-A-Cath is in good position. The lungs are expanded. There is no demonstrated parenchymal abnormality. There is no demonstrated pleural abnormality. Normal heart and pericardium. Normal mediastinum and shima. Normal visualized pulmonary arteries. Normal visualized aortic arch and descending thoracic aorta. Normal visualized thoracic spine. Normal visualized ribs, clavicles, and shoulders. There is no demonstrated abnormality of the visualized soft tissue structures of the upper abdomen. RAD/Chest PA and Lateral IMPRESSION: No evidence for acute abnormality. Reading Location: [place]
== END | disposition home or self-care (01) ==
LOC: RAD 15:53
PROVIDERS: PCP Internal Medicine; Referring Provider Nurse Practitioner Family; Visit Provider Nurse Practitioner Family
DX: R06.02 Shortness of breath (principal)
CPT/HCPCS: 71046

== ENCOUNTER 2024-11-04 13:51 | Emergency (ER) | payer MEDICARE, MEDICAID, SELFPAY ==
[2024-11-04 14:05] VITALS: BP 120/74; PULSE 106; RESP 17; TEMP 37; O2SAT 95
--- OUTSIDE RECORDS SUMMARY | 2024-11-04 14:33 | XMS RPT_ITS | CCD ---
Author Organization [facility] Care Team Providers Care Lining Finisher Name Role Phone BHUPENDRA CANDELARIA Unavailable Unavailable ZALDIVAR, EULALIA Unavailable Unavailable [employer] Unavailable Unavailable NO REFERRING DR Unavailable Unavailable WARD DUARTE Unavailable Unavailable CiesaDylan E Unavailable Everton Khan Unavailable Dylan Ramirez Unavailable Khurram Lawrence Unavailable Virgil Barnett Unavailable Madai Dunbar Unavailable Unavailable Alethea Iqbal Unavailable Unavailable Nancy Rocha Unavailable Unavailable Messenger, Kaylyn Unavailable Unavailable Unavailable Unavailable Alexis Riojas Unavailable Unavailable Dylan Velarde Attending Unavailable OliviaesaDylan Referring Unavailable BiaDylan Consulting Unavailable Ciesheather Kassie Unavailable Everton Khan Unavailable Dylan Ramirez Unavailable Khurram Lawrence Unavailable Virgil Barnett Unavailable Louise Cunningham Unavailable Unavailable Madai Dunbar Unavailable Unavailable Alethea Iqbal Unavailable Unavailable Long, Nancy L Unavailable Unavailable Messenger, Kaylyn Unavailable Unavailable Unavailable Unavailable Prerna De La Garza Unavailable Unavailable Dylan Velarde Primary Care Provider Virgil Barnett Unavailable Alexis Iqbal Unavailable Unavailable Aj Nancy L Unavailable Unavailable Messenger, Kaylyn Unavailable Unavailable Alexis Riojas Unavailable Unavailable Dylan Velarde Primary Care Provider Ciesa Dylan BANSAL Unavailable Everton Khan MD Unavailable Dylan Ramirez Unavailable Melinda SALGADO, Khurram Jones Unavailable Virgil Barnett Unavailable Rasheed HENRY, Alexis Unavailable Unavailable Aj RN, Nancy Fierro Unavailable Unavailable Bandar RN, Kaylyn Unavailable Unavailable Unavailable Unavailable Leanne SALGADO, Donna Greenwood Unavailable Avery SALGADO, Dr. Suzan Cummings Unavailable Manchak REFERRAL MANAGEMENT LIAISON, Zeinab Unavailable Unavailable Krysten E COMMERCE MERCHANT, Nina Unavailable Unavailable Unavailable Unavailable [facility] Primary Care Provider Gerald Gilmore Unavailable Ciesa SHEET METAL WORK FURNACE INSTALLER, SHEET METAL WORK FURNACE INSTALLER-C [facility] Care Provider Dr. Arley Jama Attending Provider Dr. Tevin Lopez Referring Provider BiDylan Unavailable [facility] Primary Care Provider Gerald Gilmore Unavailable Dr. Donna Perdomo Primary Care Provider Dr. Zina Randhawa Attending Provider Dr. Zina Randhawa Referring [facility] Gerald Gilmore Unavailable Dr. Donna Perdomo Primary Care Provider Dr. Zina Randhawa Attending Provider Dr. Zina Randhawa Referring Provider [facility] Primary Care Provider Gerald Gilmore Unavailable Donna Perdomo MD Primary Care Provider EDWIGE BOB Referring Unavailable DONNA PERDOMO Primary Care Unavailable CROCK, EDWIGE Referring Unavailable BONEZZI, DONNA Primary Care Unavailable RADHA, CHRISTOPHER Admitting Unavaila ble RADHA, CHRISTOPHER Attending Unavaila ble BONEZZI, DONNA Primary Care Unavailable SAKSHI, PRETI Consulting Unavailable SAKSHI, PRETI Attending Unavailable SAKSHI, PRETI Referring Unavailable BONEZZI, DONNA Primary Care Unavailable Leanne SALGADO, Donna Primary Care Provider [phone] Mable Dylan Primary Care Provider [phone] Leanne SALGADO, Donna Primary Care Provider [phone] Leanne SALGADO, Donna Primary Care Provider [phone] Mable BANSAL [facility] Primary Care Provider [phone] Mando SALGADO, Gerald Greenwood Unavailable MERRICK LOPEZ Referring Unavailable BONEZZI, DONNA Primary Care Unavailable EDGAR AYERS Attending Unavailable BONEZZI, DONNA Primary Care Unavailable MATURU, ANUEL Admitting Unavailable MATURU, ANUEL Attending Unavailable BENAMEUR RENEE R Attending Unavailable BONEZZI, DONNA Primary Care Unavailable BONEZZI, DONNA M Referring Unavailable FREIMER, PANKAJ L Referring Unavailable BONEZZI, DONNA Primary Care Unavailable EDGAR AYERS Attending Unavailable USHER, TALYA R Attending Unavailable SELF, SELF Referring Unavailable BONEZZI, DONNA M Primary Care Unavailable USHER, TALYA R Attending Unavailable SELF, SELF Referring Unavailable BONEZZI, DONNA Primary Care Unavailable USHER, TALYA R Attending Unavailable SELF, SELF Referring Unavailable BONEZZI, DONNA Primary Care Unavailable BONEZZI, DONNA Primary Care Unavailable SELF, SELF Referring Unavailable EDGAR AYERS Attending Unavailable Leanne SALGADO, Dr. Hoyos Primary Care Provider Dr. Kendall Encarnacion MD Attending Provider Dr. Kendall Encarnacion MD Referring Provider Dr. Donna Perdomo MD Referring Provider [phone] Jorge SALGADO, Dr. Tabor Primary Care Provider Jorge SALGADO, Dr. Tabor Attending Provider Leanne SALGADO, Dr. Hoyos Primary Care Provider Shashank SALGADO, Dr. Argueta Attending Provider Shashank SALGADO, Dr. Argueta Referring Provider Leanne SALGADO, Dr. Hoyos Primary Care Provider Shashank SALGADO, Dr. Argueta Attending Provider Shashank SALGADO, Dr. Argueta Referring Provider Jorge SALGADO, Dr. Tabor Referring Provider Katie Aldana Attending Provider Katie Aldana Referring Provider Dr. Jhon Priest DO Emergency Provider Derik LOWERY, Dr. Ferreira Attending Provider Shashank SALGADO, Dr. Argueta Other Provider Dr. Kaiden Rausch DO Emergency Provider Mando SALGADO, Gerald Greenwood Unavailable Unavailabl e CIESA, KASSIE Primary Care Unavailable JOHAN LUJAN Admitting Unavailable TAMIRANGELLA ROSAS Referring Unavailable CIESA, KASSIE Primary Care Unavailable OLEGHE, IFIJEN BLAISE Attending Unavaila ALDO Stearns Consulting Unavailable Dr. Kaiden Rausch DO Attending Provider Ungerer SHEET METAL WORK FURNACE INSTALLER-C, Louise Attending Provider [phone] Ungerer SHEET METAL WORK FURNACE INSTALLER-C, Louise Referring Provider [phone] Katie Mayo Attending Unavailable Oleghe, Efewongbe Primary Care Unavailable Oleghe, Efewongbe Referring Unavailable Oleghe, Efewongbe Referring Unavailable Oleghe, Efewongbe Primary Care Unavailable UngererLouise Attending Unavailable Mindel, Edgar Attending Unavailable Mindel, Edgar Referring Unavailable Bonezzi, Donna Primary Care Unavailable Boneronaldi, Donna Primary Care Unavailable Kendall Encarnacion Attending Unavailable Bonezzi, Donna Referring Unavailable Oleghe, Efewongbe Attending Unavailable Oleghe, Efewongbe Primary Care Unavailable Bonezzi, Donna Referring Unavailable Baddour, Kendall Referring Unavailable Baddour, Kendall Attending Unavailable Bonezzi, Donna Primary Care Unavailable AtanasovKatie Referring Unavailable Baddour, Kendall Attending Unavailable Oleghe, Efewongbe Primary Care Unavailable Katie Mayo Attending Unavailable AtanasovKatie Referring Unavailable Oleghe, Efewongbe Primary Care Unavailable Oleghe, Efewongbe Primary Care Unavailable Ungerer, Louise Referring Unavailable Ungerer, Louise Attending Unavailable Oleghe, Efewongbe Primary Care Unavailable Jhon Priest Attending Unavailable Baddour, Kendall Attending Unavailable Baddour, Kendall Referring Unavailable Bonezzi, Donna Primary Care Unavailable Mindel, Edgar Referring Unavailable MindelGermanEdgar Attending Unavailable Bonezzi, Donna Primary Care Unavailable Baddour, Kendall Referring Unavailable Baddour, Kendall Attending Unavailable Bonezzi, Donna Primary Care Unavailable Oleghe, Efewongbe Primary Care Unavailable Baddour, Kendall Attending Unavailable Baddour, Kendall Referring Unavailable Oleghe, Efewongbe Primary Care Unavailable Katie Mayo Referring Unavailable Carlosnaschuckie, Katie Attending Unavailable Kaiden Rausch Attending Unavailable Baddour, Kendall Consulting Unavailable Oleghe, Efewongbe Primary Care Unavailable Katie Mayo Referring Unavailable AtanasovKatie Attending Unavailable Oleghe, Efewongbe Primary Care Unavailable Katie Mayo Attending Unavailable Oleghe, Efewongbe Referring Unavailable Allergies Allergy Classification Reported Allergen(s) Allergy Type Date of Onset Reaction(s) Facility Anti-Epileptic Agents (18 sources) Phenytoin; Translations: [Dilantin *ANTICONVULSANTS*] Drug Allergy 014 Mental Status Change, Other: See Comments [facility] Work Phone: Comment on above: anxiety and hallucin ations Penicillin V (8 sources) Penicillin V; Translations: [Penicillin V Potassium *PENICILLINS*] Drug Allergy Rash [facility]; [facility] Work Phone: Penicillins (antibiotic) (1 source) Penicillins Drug Allergy 014 Rash [facility] Prochlorperazine (1 source) Prochlorperazine Drug Allergy Intolerance [facility] Quinolones (antibiotic) (1 source) Ciprofloxacin Drug Allergy Mental Status Change [facility] Soybean preparation (1 source) Soybean preparation Drug Allergy Other: See Comments [facility] (20 sources) levETIRAcetam; Translations: [LEVETIRACETAM] Drug Allergy Mental Status Change, Other: See Comments, Other, Hallucination [facility] Repository Comment on above: Hallucinations (20 sources) Penicillins; Translations: [PENICILLINS] Propensity to adverse reactions to drug (disorder) Rash, Hives [facility] Repository (1 source) levETIRAcetam; Translations: [KEPPRA] Drug Allergy [facility] Repository (20 sources) levETIRAcetam; Translations: [Keppra *ANTICONVULSANTS*] Drug Allergy [facility] Work Phone: (20 sources) penicillin v; Translations: [Penicillin V Potassium *PENICILLINS*] Drug Allergy Rash [facility] Work Phone: (20 sources) Phenytoin; Translations: [Dilantin *ANTICONVULSANTS*] Drug Allergy Other (See Comments), Mental Status Change, Other [place], [place] Comment on above: anxiety and hallucin ations hallucinations (20 sources) Iodides; Translations: [IODIDES] Propensity to adverse reactions to drug Other: See Comments [place], [place] (20 sources) Shellfish; Translations: [shellfish derived] Allergy to substance Other [facility] Comment on above: seizures (20 sources) Soy protein; Translations: [soy] Propensity to adverse reactions NEEDS FOLLOW-UP [facility] Comment on above: PT'S MOTHER STATES IT CAN INTERACT WITH HER SEIZURE MEDICATION (20 sources) Prochlorperazine; Translations: [PROCHLORPERAZINE] Drug Allergy Intolerance [facility] Comment on above: patient states it ma kes me go crazy (12 sources) Shellfish; Translations: [SHELLFISH CONTAINING PRODUCTS] Drug Allergy Other: See Comments [facility] (11 sources) Soybean preparation; Translations: [SOY PROTEIN] Drug Allergy Other: See Comments [facility] (8 sources) Other Propensity to adverse reactions Anxiety [facility] (19 sources) Shellfish-Derived Products Propensity to adverse reactions Other [facility] (11 sources) Soybean Oil Drug Allergy [facility] (2 sources) Ciprofloxacin; Translations: [CIPROFLOXACIN] Drug Allergy Mental Status Change [facility] (5 sources) Barium sulfate; Translations: [BARIUM SULFATE] Propensity to adverse reactions to drug (disorder) Other [facility] Repository Comment on above: Seizure (5 sources) TECHNETIUM-99M; Translations: [TECHNETIUM-99M] Propensity to adverse reactions to drug (disorder) Other [facility] Repository Comment on above: seizure /intubation (1 source) Phenytoin Drug Allergy [facility] Repository (1 source) Prochlorperazine Drug Allergy 025 [facility] Repository Medications Current Medications Medication Drug Class(es) Dates Sig (Normalized) Sig (Original) acetaminophen 325 mg / butalbital 50 mg / caffeine 40 mg oral tablet (2 sources) Barbiturate, Central Nervous System Stimulant, Methylxanthine Start: 11-01-2023 End: 04-29-2024 take 1 tablet by mouth twice daily as needed for pain butalbital-acetam inophen-caffeine 50-325-40 MG per tablet Indications: 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 40 tablet 1 11/01/2023 04/29/2024 Active acetaminophen 325 mg / HYDROcodone bitartrate 5 mg oral tablet (3 sources) Opioid Agonist Start: 05-27-2022 take 1 tablet by mouth every six hours as needed Hydrocodone-Aceta minophen Active 1 TABLET PO EVERY 6 HOURS NEEDED 10 May 27, 2022 End: 10-06-2022 take 1 tablet by mouth every six hours as needed for pain hydroCODone-acetaminophen 5-325 MG table t hydrocodone 5 mg-acetaminophen 325 mg tablet take 1 tablet by mouth every 6 hours NEEDED FOR PAIN for 3 days 0 10/06/2022 Discontinued acetaminophen 325 mg / oxyCODONE hydrochloride 5 mg oral tablet (3 sources) Opioid Agonist Start: 10-17-2021 take 1 tablet by mouth every six hours Oxycodone-Acetaminophen (Percocet) 5-325 mg tablet Active 1 TABLET PO EVERY 6 HOURS 5 7 October 17, 2021 diazePAM 100 mg/ml nasal spray (20 sources) Benzodiazepine Start: 02-21-2024 Valtoco 10 MG Dose 10 MG/0.1ML Liquid Indications: Localization-related (focal) (partial) idiopathic epilepsy and epileptic syndromes with seizures of localized onset, intractable, without status epilepticus USE DIRECTED NASALLY NEEDED 2 Each 02/21/2024 Active Start: 01-02-2024 End: 02-21-2024 Valtoco 10 MG Dose 10 MG/0.1 ML Liquid Indications: Localization-related (focal) (partial) idiopathic epilepsy and epileptic syndromes with seizures of localized onset, intractable, without status epilepticus 10 mg by Nasal route as needed. 2 Each 2 01/02/2024 02/21/2024 Discontinued Start: 01-02-2024 Valtoco 10 MG Dose 10 MG/0.1ML Liquid Indications: Localization-related (focal) (partial) idiopathic epilepsy and epileptic syndromes with seizures of localized onset, intractable, without status epilepticus 10 mg by Nasal route as needed. 2 Each 2 01/02/2024 Active Start: 08-26-2022 End: 08-12-2023 Valtoco 10 MG Dose 10 MG/0.1 ML Liquid 10 mg by Nasal route as needed. 08/26/2022 08/12/2023 Discontinued (Reorder) Start: 08-08-2022 Diazepam (Valt oco) 10 mg/spray (0.1 mL) spray,non-aerosol Active 10 mg INTRANASAL NEEDED as needed for Seizures August 08, 2022 12:00am Start: 08-08-2022 Diazepam (Valt oco) 10 mg/spray (0.1 mL) spray,non-aerosol Active 10 MG INTRANASAL NEEDED August 08, 2022 12:00am Start: 02-18-2021 diazePAM (VALT OCO) 10 mg/spray (0.1 mL) nasal spray as directed. 02/18/2021 Suspended Start: 02-18-2021 diazePAM (VALT OCO) 10 mg/spray (0.1 mL) nasal spray as directed. 02/18/2021 Active Start: 02-18-2021 diazePAM (Valt oco 10 MG Dose) 10 MG/0.1ML liquid Administer 10 mg into each nostril. As directed as needed for seizures 0 02/18/2021 Active Start: 02-18-2021 diazePAM (Valt oco 10 MG Dose) 10 MG/0.1ML liquid as directed. 0 02/18/2021 Active Start: 02-18-2021 diazePAM (VALT OCO) 10 mg/spray (0.1 mL) nasal spray as directed. 0 02/18/2021 Active Start: 06-28-2015 End: 08-09-2015 VALIUM, 5MG (Oral Tablet) 1 (one) Tablet x1 for 0 days Quantity: 1 {Tablet} Refills: 0 Ordered: 09-Aug-2015 Prerna De La Garza LPN Start : 28-Jun-2015 End : 09-Aug-2015 Discontinued Comments: one End: 08-03-2022 take 1 tablet by mouth every eight hours as needed diazePAM (Valium) 10 MG tablet Take 10 mg by mouth every 8 hours as needed (this is a nasal spray not tablet, Valtoco). 0 08/03/2022 Discontinued (Entered in error) Comment on above: one as directed. Diazepam (Valtoco) 10 mg/spray (0.1 mL) spray,non-aerosol (4 sources) Start: 08-08-2022 Diazepam (Valtoco) 10 mg/spray (0.1 mL) spray,non-aerosol Active 10 mg INTRANASAL NEEDED as needed for Seizures August 08, 2022 12:00am 30 ml eculizumab 10 mg/ml injection (20 sources) Complement Inhibitor Start: 10-14-2020 Eculizumab (Soliris) 300 mg/30 mL Solution Active 1200 MG IV .QOWEEK October 14, 2020 12:00am End: 04-01-2022 eculizumab (SOLIRIS INTRAVEN OUS) Inject intravenously. 04/01/2022 Discontinued take 900 mg intraven ously every week Soliris 300 MG/30ML Intravenous Solution 900mg once a week (300 MG/30ML) Active Comments: changes End: 04-01-2022 eculizumab (SOLIRIS INTRAVEN OUS) Inject intravenously. 0 04/01/2022 Discontinued eculizumab (LIONEL RIS INTRAVENOUS) Inject intravenously. 0 Active Comment on above: changes Inject intravenously . escitalopram 10 mg oral tablet (20 sources) Serotonin Reuptake Inhibitor Start: 3 End: 3 take 1 tablet by mouth once daily escitalopram 20 MG tablet Take 1 tablet by mouth daily. 0 10/03/2022 10/06/2022 Discontinued Start: 07-30-2022 End: 08-07-2022 take 10 mg by mouth once daily 10 mg, Oral, Daily, [facility]ir [facility] dose on [place] 07/30/22 at 1810 Start: 08-18-2021 End: 07-06-2024 take 1 tablet by mouth at bedtime Escitalopram Oxalate (Lexapro) 10 mg Tablet Discontinued 10 mg PO AT BEDTIME October 09, 2021 12:00am July 06, 2024 12:10pm take 10 mg by mouth once daily e scitalopram (Lexapro) 20 MG tablet Take 10 mg by mouth Nightly. 0 Active Comment on above: Take 10 mg by mouth once daily. ferrous sulfate 325 mg oral tablet (8 sources) Start: 1 take 1 tablet by mouth once daily Ferrous Sulfate (Iron) 325 mg (65 mg iron) Tablet Active 325 MG PO DAILY November 02, 2020 12:00am hydrOXYzine pamoate 25 mg oral capsule (20 sources) Antihistamine Start: 3 End: 3 take 1 capsule by mouth every six hours as needed for anxiety hydrOXYzine pamoate (Vistaril) 25 MG capsule Take 1 capsule (25 mg) by mouth every 6 hours as needed for anxiety (2nd line after lorazepam) for up to 10 days. 30 capsule 0 08/07/2022 Active Start: 12-24-2020 hydrOXYzine HC l 50 MG Oral Tablet 1/2 (one half) Tablet 30min before bed time prn for 0 days Quantity: 60 {Tablet} Refills: 0 Ordered: 24-Dec-2020 Dylan Velarde Mary Start : 24-Dec-2020 Active End: 04-01-2022 take 1 tablet by mouth once daily at bedtime hydrOXYzine HCl (ATARAX) 50 mg tablet Take 50 mg by mouth daily at bedtime. 04/01/2022 Discontinued Comment on above: Take 50 mg by mouth daily at bedtime. IUD'S IU (2 sources) IUD'S IU Indicat ions: paraguard by Intrauterine route Indications: paraguard 0 Active levonorgestrel 0.366320 mg/hr intrauterine system (20 sources) Progestin, Progestin-containing Intrauterine Device Start: 09-29-2022 End: 09-29-2022 Levonorgestrel (Mirena, 52 MG,) 20 MCG/DAY 1 Intra Uterine Device by Intrauterine route once. 09/29/2022 08/12/2023 Discontinued Start: 10-14-2020 Levonorgestrel (Mirena) 20 mcg/24 hours (6 yrs) 52 mg Intrauterine Device Active 20 ug INTRA-UTER DIRECTED October 14, 2020 12:00am control levonorgestrel ( MIRENA) 20 mcg/24 hours (8 yrs) 52 mg IUD 1 Each by INTRAUTERINE route one time only. Suspended levonorgestrel ( Mirena) 20 MCG/DAY IUD 1 each by IntraUTERine route. 0 Active Comment on above: 1 Each by INTRAUTERI NE route one time only. Lidocaine (3 sources) Antiarrhythmic, Amide Local Anesthetic Start: 10-13-2024 take 1 mL by mouth three times daily as needed for pain Lidocaine Hcl (Lidocaine Viscous) 2 % solution Active 10 mL PO THREE TIMES A DAY as needed for pain 100 0 October 13, 2024 12:00am Pharyngeal damage during airway intubation Other specified injuries of pharynx and cervical esophagus, initial encounter Start: 10-13-2024 take 1 mL by mouth t hree times daily as needed for pain Lidocaine Hcl (Lidocaine Viscous) 2 % solution Active 10 mL PO THREE TIMES A DAY as needed for pain 100 October 13, 2024 12:00am lubiprostone 0.008 mg oral capsule (9 sources) Chloride Channel Activator Start: 10-10-2024 take 1 capsule by mouth once daily Lubiprostone (Amitiza) 8 mcg capsule Active 8 ug PO daily 30 2 October 10, 2024 12:00am Start: 08-28-2024 End: 09-14-2024 take 1 capsule by mouth once daily Lubiprostone (Amitiza) 8 mcg capsule Discontinued 8 ug PO daily 60 3 August 28, 2024 12:00am September 14, 2024 7:53am meclizine hydrochloride 25 mg oral tablet (3 sources) Antiemetic Start: 05-27-2022 End: 10-06-2022 take 25 mg by mouth four times daily as needed Meclizine Active 25 MG PO 4 TIMES DAILY NEEDED May 27, 2022 1:00am metroNIDAZOLE 500 mg oral tablet (1 source) Nitroimidazole Antimicrobial Start: 07-24-2021 End: 08-07-2021 take 1 tablet by mouth twice daily metroNIDAZOLE (FLAGYL) 500 mg tablet Take 1 tablet by mouth twice daily for 14 days. 28 tablet 0 07/24/2021 08/07/2021 Active Comment on above: Take 1 tablet by [facility] twice daily for 14 days. ondansetron 4 mg disintegrating oral tablet (3 sources) Serotonin-3 Receptor Antagonist Start: 10-13-2024 take 1 tablet by mouth every six hours as needed for nausea and vomiting Ondansetron 4 mg tablet,disintegrat ing Active 4 mg PO EVERY 6 HOURS as needed for nausea and vomiting 14 October 13, 2024 12:00am Nausea Nausea Promethazine (1 source) Phenothiazine Start: 10-07-2019 promethazine (PHENERGAN) tablet 12.5 mg 30 ml ravulizumab-cwvz 10 mg/ml injection (12 sources) Start: 10-06-2022 Ravulizumab-cwvz (Ultomiris) 300 MG/30ML Solution 130 mL by Intravenous route every 56 days. 1300 mL 10/06/2022 Active Ravulizumab-Cwvz (20 sources) Start: 07-27-2024 Ravulizumab-Cwvz (Ultomiris) 100 mg/mL solution Active 3300 mg .Route .q8 weeks 33 2 July 27, 2024 4:14pm 3300 mg IV infusion over 1 hour every 8 weeks. Start: 07-27-2024 Ravulizumab-Cw vz (Ultomiris) 100 mg/mL solution Active 3300 mg .Route .q8 weeks July 27, 2024 4:14pm 3300 mg IV infusion over 1 hour every 8 weeks. Start: 07-06-2024 End: 07-27-2024 Ravulizumab-Cwvz (Ultomiris) 100 mg/mL solution Discontinued 3300 mg .Route .q8 weeks July 06, 2024 12:11pm July 27, 2024 4:14pm 3300 mg IV infusion over 1 hour every 8 weeks. Start: 07-06-2024 End: 07-27-2024 Ravulizumab-Cwvz (Ultomiris) 100 mg/mL solution Discontinued 3300 mg .Route .q8 weeks July 06, 2024 12:11pm July 27, 2024 4:14pm 3300 mg IV infusion over 1 hour every 8 weeks. Start: 07-06-2024 Ravulizumab-Cw vz (Ultomiris) 100 mg/mL solution Active 3300 mg .Route .q8 weeks July 06, 2024 12:11pm 3300 mg IV infusion over 1 hour every 8 weeks. Start: 04-20-2024 End: 07-06-2024 Ravulizumab-Cwvz (Ultomiris) 100 mg/mL solution Discontinued 3300 mg .Route .q8 weeks April 20, 2024 1:00am July 06, 2024 12:11pm 3300 mg IV infusion over 1 hour every 8 weeks. Start: 04-20-2024 End: 07-06-2024 Ravulizumab-Cwvz (Ultomiris) 100 mg/mL solution Discontinued 3300 mg .Route .q8 weeks April 20, 2024 1:00am July 06, 2024 12:11pm 3300 mg IV infusion over 1 hour every 8 weeks. Start: 04-12-2024 End: 07-06-2024 Ravulizumab-Cwvz (Ultomiris) 100 mg/mL solution Discontinued 0 .ROUTE .[facility] April 12, 2024 1:00am July 06, 2024 12:11pm 300mg/30ml 130ml IV every 56 days; Ultomiris (4 sources) Start: 02-05-2022 Ultomiris Acti ve February 05, 2022 12:00am q 8 weeks Start: 02-05-2022 Ultomiris Acti ve February 04, 2022 11:00pm q 8 weeks Start: 02-05-2022 Ultomiris Acti ve February 05, 2022 12:00am Completed/Discontinued Medications Medication Drug Class(es) Dates Sig (Normalized) Sig (Original) acetaminophen 325 mg oral tablet (20 sources) Start: 10-29-2022 End: 11-02-2022 take 1 tablet by mouth every six hours as needed Acetaminophen (TYLENOL) tablet 650 mg Start: 08-05-2022 End: 08-07-2022 acetaminophen (Tylenol) tabl et 1,000 mg Start: 07-30-2022 End: 08-07-2022 take 1 tablet by mouth every six hours as needed for pain and fever acetaminophen (Tylenol) tablet 650 mg Start: 10-07-2019 acetaminophen (TYLENOL) tablet 650 mg End: 10-06-2022 take 2 tablets by mouth every six hours as needed acetaminophen (TYLENOL) 325 mg tablet Take 650 mg by mouth every 6 hours as needed. Suspended Comment on above: Take 650 mg by mouth every 6 hours as needed. 500 ml albumin human, [facility] 50 mg/ml injection (10 sources) Human Serum Albumin Start: 08-07-2022 End: 08-07-2022 albumin human 5 % IV solution 2,000 mL Start: 08-05-2022 End: 08-05-2022 albumin human 5 % IV solutio n 1,900 mL Start: 08-03-2022 End: 08-03-2022 albumin human 5 % IV solutio n 2,100 mL Start: 08-01-2022 End: 08-01-2022 albumin human 5 % IV solutio n 1,900 mL Start: 07-30-2022 End: 07-30-2022 albumin human 5 % IV solutio n 2,000 mL [id number] 200 actuat albuterol 0.09 mg/actuat metered dose inhaler (20 sources) beta2-Adrenergic Agonist Start: 02-21-2019 End: 03-08-2019 ProAir HFA 108 (90 Base) MCG/ACT Inhalation Aerosol Solution 2 (two) Puff tid to qid for 30 days Quantity: 1 {Inhaler} Refills: 2 Ordered: 08-Mar-2019 Alexis Iqbal LPN Start : 21-Feb-2019 End : 08-Mar-2019 Inactive Start: 02-21-2019 End: 03-08-2019 ProAir HFA 108 (90 Base) MCG /ACT Inhalation Aerosol Solution 2 (two) Puff tid to qid for 30 days Quantity: 1 {Inhaler} Refills: 2 Ordered: 08-Mar-2019 Alexis Iqbal LPN Start : 21-Feb-2019 End : 08-Mar-2019 Inactive Start: 02-21-2019 End: 10-24-2018 ProAir HFA 108 (90 Base) MCG /ACT Inhalation Aerosol Solution 2 (two) Puff tid to qid for 30 days Quantity: 1 {Inhaler} Refills: 2 Ordered: 21-Feb-2019 Bhupendra Candelaria DO Start : 21-Feb-2019 End : 24-Oct-2018 Active Start: 12-24-2017 End: 10-24-2018 ProAir HFA 108 (90 Base) MCG /ACT Inhalation Aerosol Solution 2 (two) Puff Puff tid to qid for 0 days Quantity: 1 {Inhaler} Refills: 2 Ordered: 24-Oct-2018 Louise Cunningham Start : 24-Dec-2017 End : 24-Oct-2018 Inactive Start: 12-24-2017 ProAir HFA 108 (90 Base) MCG/ACT Inhalation Aerosol Solution 2 (two) Puff Puff tid to qid for 0 days Quantity: 1 {Inhaler} Refills: 2 Ordered: 24-Dec-2017 Madai Dunbar Start : 24-Dec-2017 Active ALPRAZolam 0.25 mg oral tablet (2 sources) Benzodiazepine Start: 2022 End: 10-06-2022 take 1 tablet by mouth three times daily ALPRAZolam 0.25 MG tablet Take 1 tablet by mouth 3 times daily. 0 2022 10/06/2022 Discontinued (Therapy completed) Start: 07-30-2022 End: 07-30-2022 ALPRAZolam (Xanax) disintegr ating tablet apixaban 5 mg oral tablet (20 sources) Factor Xa Inhibitor Start: 10-25-2020 End: 04-12-2024 take 1 tablet by mouth at bedtime Apixaban (Eliquis) 5 mg tablet Discontinued 5 mg PO AT BEDTIME November 02, 2020 12:00am April 12, 2024 3:05pm blood clot Comment on above: Take 5 mg by mouth t wice daily. azithromycin 250 mg oral tablet (20 sources) Macrolide Antimicrobial Start: 11-30-2017 End: 12-23-2017 Zithromax Z-Chris 250 MG Oral Tablet 1 (one) Tablet TAD for 0 days Quantity: 1 {Package} Refills: 0 Ordered: 23-Dec-2017 Madai Dunbar Start : 30-Nov-2017 End : 23-Dec-2017 Discontinued benzonatate 100 mg oral capsule (20 sources) Non-narcotic Antitussive Start: 07-12-2022 take 1 capsule by mouth every eight hours as needed benzonatate (TESSALON PERLES) 100 mg capsule Take 1 capsule by mouth three times daily as needed for cough. 14 capsule 07/12/2022 Suspended Start: 03-08-2018 End: 10-24-2018 take 1 capsule by mouth three times daily as needed Tessalon Perles 100 MG Oral Capsule 1 (one) Capsule tid prn for 0 days Quantity: 30 {Capsule} Refills: 0 Ordered: 24-Oct-2018 Louise Cunningham Start : 08-Mar-2018 End : 24-Oct-2018 Inactive Comment on above: Take 1 capsule by [facility] three times daily as needed for cough. calcium chloride 0.0014 meq/ml / potassium chloride 0.004 meq/ml / sodium chloride 0.103 meq/ml / sodium lactate 0.028 meq/ml injectable solution (2 sources) Start: 07-31-2022 End: 08-02-2022 lactated Ringer's infusion 100 ml calcium gluconate 20 mg/ml injection (4 sources) Start: 08-07-2022 End: 08-07-2022 calcium gluconate 2000 mg in 100 mL IVPB premix Start: 07-30-2022 End: 07-30-2022 calcium gluconate 2000 mg in 100 mL IVPB premix calcium gluconate 1,900 mg i n sodium chloride 0.9 % 100 mL IVPB (4 sources) Start: 08-05-2022 End: 08-05-2022 calcium gluconate 1,900 mg i n sodium chloride 0.9 % 100 mL IVPB Start: 08-01-2022 End: 08-01-2022 calcium gluconate 1,900 mg i n sodium chloride 0.9 % 100 mL IVPB calcium gluconate 3.1 g in sodium chloride 0.9 % 100 mL IVPB (2 sources) Start: 08-03-2022 End: 08-03-2022 calcium gluconate 3.1 g in sodium chloride 0.9 % 100 mL IVPB cetirizine hydrochloride 10 mg oral tablet (20 sources) Histamine-1 Receptor Antagonist Start: 12-06-2018 End: 12-13-2018 take 1 tablet by mouth once daily ZyrTEC Allergy 10 MG Oral Tablet 1 (one) Tablet daily for 7 days Quantity: 7 {Tablet} Refills: 0 Ordered: 23-Dec-2018 Mable Dylan Oliviajv Dylan Start : 06-Dec-2018 End : 13-Dec-2018 Inactive cholecalciferol 0.25 mg oral capsule (20 sources) Vitamin D Start: 04-12-2024 End: 07-26-2024 take 1 capsule by mouth once daily Cholecalciferol (Vitamin D3) 250 mcg (10,000 unit) capsule Discontinued 250 ug PO daily April 12, 2024 1:00am July 26, 2024 1:54pm Start: 10-31-2022 End: 11-02-2022 cholecalciferol (VITAMIN D3) tablet 2,000 Units Start: 06-28-2015 End: 08-30-2015 take 1 capsule by mouth once daily VITAMIN D3 MAXIMUM STRENGTH, 5000UNIT (Oral Capsule) 1 (one) Capsule Capsule qd for 120 days Refills: 0 Ordered: 30-Aug-2015 Prerna De La Garza LPN Start : 28-Jun-2015 End : 30-Aug-2015 Discontinued citrate dextrose (ACD-A) 0.73-2.45-2.2 GM/100ML infusion - Pyxis ADS Override Pull (4 sources) Start: 08-07-2022 End: 08-07-2022 citrate dextrose (ACD-A) 0.73-2.45-2.2 GM/100ML infusion - Pyxis ADS Override Pull Start: 07-30-2022 End: 07-30-2022 citrate dextrose (ACD-A) 0.7 3-2.45-2.2 GM/100ML infusion - Pyxis ADS Override Pull citrate dextrose (ACD-A) infusion (6 sources) Start: 08-07-2022 End: 08-07-2022 citrate dextrose (ACD-A) infusion Start: 08-03-2022 End: 08-07-2022 citrate dextrose (ACD-A) inf usion Start: 08-01-2022 End: 08-07-2022 citrate dextrose (ACD-A) inf usion clarithromycin 500 mg oral tablet (20 sources) Macrolide Antimicrobial Start: 01-24-2018 End: 01-31-2018 take 1 tablet by mouth twice daily Biaxin 500 MG Oral Tablet 1 (one) Tablet bid for 7 days Quantity: 14 {Tablet} Refills: 0 Ordered: 24-Jan-2018 Dylan Velarde Mary Start : 24-Jan-2018 End : 31-Jan-2018 Inactive Start: 08-09-2015 End: 08-19-2015 take 2 tablets by mouth once daily BIAXIN XL PAC, 500MG (Oral Tablet Extended Release 24 Hour) 2 (two) Tablet ER 24HR daily for 10 days Quantity: 20 {Tablet} Refills: 0 Ordered: 09-Aug-2015 Dylan Velarde Mary Start : 09-Aug-2015 End : 19-Aug-2015 Inactive Start: 08-09-2015 End: 08-19-2015 take 2 tablets by mouth once daily BIAXIN XL PAC, 500MG (Oral Tablet Extended Release 24 Hour) 2 (two) Tablet ER 24HR daily for 10 days Quantity: 20 {Tablet} Refills: 0 Ordered: 09-Aug-2015 Mable BANSALDylan Oliviajeffreyheather BANSALDylan Start : 09-Aug-2015 End : 19-Aug-2015 Inactive clindamycin 150 mg oral capsule (20 sources) Lincosamide Antibacterial take 1 tablet by mouth every six hours Clindamycin HCl 150 MG Oral Capsule one tab q6hrs (150 MG) Inactive clotrimazole 10 mg oral lozenge (20 sources) Azole Antifungal Start: 03-08-20 End: 03-15-20 Clotrimazole 10 MG Mouth/Throat Maribel 1 (one) Maribel 5x daily for 7 days Quantity: 35 {Maribel} Refills: 0 Ordered: 08-Mar-2018 Dylan Velarde Mary Start : 08-Mar-2018 End : 15-Mar-2018 Inactive diclofenac 18 mg oral capsule (20 sources) Nonsteroidal Anti-inflammatory Drug Start: 02-27-20 15 End: 02-29-20 15 take 1 capsule by mouth three times daily ZORVOLEX, 18MG (Oral Capsule) 1 (one) Capsule tid for 2 days Quantity: 6 {Capsule} Refills: 0 Ordered: 01-Mar-2015 Dylan Velarde Mary Start : 26-Feb-2015 End : 28-Feb-2015 Inactive docusate sodium 100 mg oral capsule (2 sources) Start: 08-03-19 End: 08-06-19 docusate sodium (Colace) capsule 100 mg doxycycline monohydrate 100 mg oral tablet (20 sources) Tetracycline-class Drug Start: 10-07-19 End: 10-07-19 take 1 tablet by mouth twice daily doxycycline monohydrate 100 MG tablet Take 1 tablet by mouth 2 times daily. 14 tablet 0 10/06/2022 10/06/2022 Discontinued (Therapy completed) Start: 12-01-2021 End: 12-08-2021 take 1 tablet by mouth twice daily doxycycline monohydrate 100 mg tablet Indications: Leg abrasion, left, initial encounter Take 1 tablet by mouth twice daily for 7 days. 14 tablet 0 12/01/2021 12/08/2021 Start: 07-24-2021 End: 08-07-2021 take 1 tablet by mouth twice daily doxycycline (VIBRA-TABS) 100 mg tablet Take 1 tablet by mouth twice daily for 14 days. 28 tablet 0 07/24/2021 08/07/2021 Active Start: 10-24-2018 End: 11-01-2018 take 1 tablet by mouth twice daily Doxycycline Monohydrate 100 MG Oral Tablet 1 (one) Tablet bid for 7 days Quantity: 14 {Tablet} Refills: 0 Ordered: 25-Oct-2018 Dylan Velarde Mary Start : 25-Oct-2018 End : 01-Nov-2018 Inactive Comment on above: Take 1 tablet by yumi th twice daily for 14 days. Take 1 tablet by yumi th twice daily for 7 days. EPINEPHrine / Lidocaine (1 source) Antiarrhythmic, alpha-Adrenergic Agonist, beta-Adrenergic Agonist, Catecholamine, Amide Local Anesthetic Start: End: lidocaine-EPINEPHrine (Xylocaine W/EPI) 1 %-1:865893 injection ergocalciferol 1.25 mg oral capsule (20 sources) Provitamin D2 Compound Start: 016 End: take 1 capsule by mouth two times weekly Ergocalciferol 60859 UNIT Oral Capsule 1 (one) Capsule Capsule twice week for 0 days Quantity: 24 {QS} Refills: 0 Ordered: 30-Nov-2017 Kaylyn Juares Start : 30-Oct-2015 End : 30-Nov-2017 Inactive 1 ml fentaNYL 0.05 mg/ml injection (1 source) Opioid Agonist Start: 025 End: 50 mcg, INTRAVENOUS, EVERY 5 MINUTES NEEDED, 2 doses, Starting on Wed10/06/24 at 2147, Until Wed10/06/24 at 2243, breakthrough pain folic acid 1 mg oral tablet (10 sources) Start: End: 024 take 1 tablet by mouth once daily Folic acid 1 MG tablet Take 1 tablet by mouth daily. 30 tablet 11/03/2022 08/12/2023 Discontinued gadobutrol (Gadavist) injection 7.6 mL (2 sources) Start: End: gadobutrol (Gadavist) injection 7.6 mL 3 ml heparin sodium, porcine 100 unt/ml prefilled syringe (12 sources) Unfractionated Heparin, Anti-coagulant Start: End: Heparin 100 units/mL flush injection 5 mL Start: 08-03-2022 End: 08-03-2022 heparin 1000 units/mL inject ion - Pyxis ADS Override Pull Start: 07-31-2022 End: 08-07-2022 take 100 [IU] intraluminal route every twelve hours heparin flush injection 100 Units Start: 07-30-2022 End: 08-07-2022 heparin injection 2,200 Unit s Start: 07-30-2022 End: 08-07-2022 heparin injection 2,100 Unit s ibuprofen 600 mg oral tablet (4 sources) Nonsteroidal Anti-inflammatory Drug Start: 08-05-2022 End: 08-07-2022 take 1 tablet by mouth every six hours as needed for pain and pain ibuprofen tablet 600 mg Start: 07-24-2018 take 1 tablet by yumi th every eight hours as needed for pain ibuprofen (ADVIL;MOTRIN) 600 MG tablet Take 1 tablet by mouth every 8 hours as needed for Pain 120 tablet 1 07/24/2018 Active IUD (15 sources) IUD Active 1 ml ketorolac tromethamine 30 mg/ml cartridge (20 sources) Nonsteroidal Anti-inflammatory Drug, Cyclooxygenase Inhibitor Start: 10-30-2022 End: 10-30-2022 Ketorolac (TORADOL) injection 15 mg Start: 07-31-2022 End: 08-05-2022 take 15 mg intravenously every six hours as needed for pain and pain ketorolac (Toradol) injection 15 mg Start: 07-30-2022 End: 07-30-2022 ketorolac (Toradol) injectio n 30 mg Start: 02-26-2015 End: 03-01-2015 take 1 tablet by mouth every six hours as needed KETOROLAC TROMETHAMINE, 10MG (Oral Tablet) 1 (one) Tablet q 6 hrs prn for 30 days Quantity: 20 {Tablet} Refills: 0 Ordered: 01-Mar-2015 Prerna De La Garza LPN Start : 26-Feb-2015 End : 01-Mar-2015 Discontinued Lactulose (10 sources) Osmotic Laxative Start: 07-06-2024 End: 07-25-2024 take 20 g by mouth once daily Lactulose 10 gram/15 mL solution Discontinued 20 g PO DAILY 946 July 06, 2024 1:00am July 25, 2024 4:23pm Start: 07-06-2024 End: 07-25-2024 take 20 g by mouth once daily Lactulose 10 gram/15 mL solution Discontinued 20 g PO DAILY July 06, 2024 1:00am July 25, 2024 4:23pm 24 hr lamoTRIgine 250 mg extended release oral tablet (20 sources) Mood Stabilizer, Anti-epileptic Agent Start: 04-12-2024 End: 07-06-2024 take 1 tablet by mouth twice daily Lamotrigine 250 mg tablet extended release 24hr Discontinued 250 mg PO TWICE A DAY 60 4 April 12, 2024 5:54pm July 06, 2024 12:10pm seizures Start: 02-04-2024 take 1 tablet by yumi th once daily in the evening lamoTRIgine 200 MG tablet Take 1 tablet by mouth daily. To be taken in addition to 250mg in PM 30 tablet 11 02/04/2024 Active Start: 02-01-2023 take 1 tablet by yumi th once daily in the evening lamoTRIgine 200 MG tablet Take 1 tablet by mouth daily. To be taken in addition to 250mg in PM 30 tablet 11 02/01/2023 Active Start: 11-03-2022 End: 11-02-2022 take 1 tablet by mouth once daily lamoTRIgine 150 MG tablet Take 1 tablet by mouth daily. 30 tablet 0 11/03/2022 11/02/2022 Discontinued (Reorder) Start: 11-03-2022 End: 11-02-2022 take 1 tablet by mouth once daily lamoTRIgine 150 MG tablet Take 1 tablet by mouth daily. 30 tablet 0 11/03/2022 11/02/2022 Discontinued (Reorder) Start: 11-02-2022 End: 12-02-2022 take 1 tablet by mouth at bedtime lamoTRIgine 100 MG tablet Take 1 tablet by mouth at bedtime. Take with the 150mg tablet for a total dose of 250mg at night. 30 tablet 0 11/02/2022 Active Start: 11-02-2022 End: 12-02-2022 take 1 tablet by mouth twice daily lamoTRIgine 150 MG tablet Take 1 tablet by mouth 2 times daily. 60 tablet 0 11/02/2022 12/02/2022 Active Start: 10-31-2022 End: 11-02-2022 lamoTRIgine (laMICtal) table t 150 mg Start: 10-30-2022 End: 10-30-2022 take 100 mg by mouth once daily 100 mg, Oral, DAILY, F irst dose on Wed10/30/22 at 0900, Until Discontinued Start: 10-30-2022 End: 11-02-2022 take 250 mg by mouth once daily at bedtime 250 mg, Oral, DAILY AT BEDTIME, First dose on Wed10/30/22 at 0130, Until Discontinued Start: 07-30-2022 End: 08-07-2022 lamoTRIgine (LaMICtal) table t 250 mg Start: 07-30-2022 End: 08-07-2022 take 100 mg by mouth once daily 100 mg, Oral, Daily, F irst dose on Taylor 07/30/22 at 1810 Start: 10-14-2020 take 250 mg by mouth at bedtim e Lamotrigine Active 250 MG PO AT BEDTIME October 14, 2020 12:00am Start: 10-14-2020 End: 04-12-2024 take 1 tablet by mouth every twenty-four hours Lamotrigine 200 mg tablet extended release 24hr Discontinued 100 mg PO 799October 14, 2020 12:00am April 12, 2024 3:06pm seizures Start: 10-14-2020 Lamotrigine Ac tive 100 MG PO 799October 14, 2020 12:00am Start: 10-14-2020 End: 04-12-2024 take 1 tablet by mouth every twenty-four hours at bedtime Lamotrigine 250 mg tablet extended release 24hr Discontinued 250 mg PO AT BEDTIME October 14, 2020 12:00am April 12, 2024 3:10pm seizures Start: 10-14-2020 take 200 mg by mouth at bedtim e Lamotrigine Active 200 MG PO AT BEDTIME October 14, 2020 12:00am Start: 10-11-2019 End: 11-02-2022 take 1 tablet by mouth once daily Lamotrigine 200 MG tablet extended release 24hr Discontinued 200 mg PO DAILY 30 30 0 October 11, 2019 12:00am November 09, 2019 12:00am November 10, 2019 12:02am Start: 10-11-2019 End: 11-10-2019 take 1 tablet by mouth every twenty-four hours at bedtime Lamotrigine 250 MG tablet extended release 24hr Discontinued 250 mg PO AT BEDTIME 30 30 0 October 11, 2019 12:00am November 09, 2019 12:00am November 10, 2019 12:02am Start: 10-11-2019 End: 11-10-2019 take 250 mg by mouth at bedtime Lamotrigine Discontinu ed 250 MG PO AT BEDTIME 30 30 October 11, 2019 12:00am November 10, 2019 12:02am Start: 10-07-2019 take 200 mg by mouth twice daily 200 mg, Oral, 2 TIMES DAILY, First dose on 10/07/19 at 0900 Start: 12-23-2017 End: 10-11-2019 take 1 tablet by mouth at bedtime Lamotrigine 200 MG tablet Discontinued 200 mg PO AT BEDTIME March 26, 2019 1:00am October 11, 2019 3:59pm seizures Start: 12-23-2017 End: 10-11-2019 take 200 mg by mouth at bedtime Lamotrigine Discontinu ed 200 MG PO AT BEDTIME March 26, 2019 1:00am October 11, 2019 3:59pm Start: 05-31-2015 lamoTRIgine ER (LAMICTAL XR) 100 mg 24 hr tablet Indications: Somnolence , Generalized convulsive epilepsy (HCC) Take two (2.0) in AM and four(4.0) tablets at bedtime 540 tablet 1 11/17/2017 Suspended End: 11-02-2022 take 1 tablet by mouth once daily lamoTRIgine (LaMICtal XR) 100 mg tablet sustained-release 24 hour 24 hr tablet Take 100 mg by mouth daily. 0 Active End: 08-03-2022 lamoTRIgine (LaMICtal) 200 M G tablet Take 250 mg by mouth Nightly. 0 08/03/2022 Discontinued (Entered in error) End: 10-07-2019 take 2 tablets by mouth once daily in the morning lamoTRIgine (LAMICTAL) 100 MG tablet Take 200 mg by mouth every morning 0 10/07/2019 Discontinued (LIST CLEANUP) Comment on above: Take two (2.0) in AM and four(4.0) tablets at bedtime linaclotide 0.072 mg oral capsule (10 sources) Guanylate Cyclase-C Agonist Start: 07-27-19 End: 08-17-19 25 take 1 capsule by mouth once daily in the morning Linaclotide (Linzess) 72 mcg capsule Discontinued 72 ug PO EVERY MORNING 30 July 26, 2024 12:00am August 16, 2024 7:52am LORazepam 0.5 mg oral tablet (20 sources) Benzodiazepine Start: 10-02-19 End: 08-12-19 24 take 0.5-1 tablets by mouth once daily as needed LORazepam 0.5 MG tablet Take 0.5-1 tablets by mouth as needed. Does not take every day-only rarely as needed 10/01/2022 08/12/2023 Discontinued Start: 10-01-2022 End: 11-02-2022 LORazepam (ATIVAN) tablet 0. 5 mg Start: 07-30-2022 LORazepam (Ati van) 2 MG/ML injection - Pyxis ADS Override Pull Start: 10-12-2019 End: 08-07-2022 LORazepam (ATIVAN) 1 mg tabl et take 1 tablet by mouth if needed for SEIZURE GERATER THAN 5 MINUTES DIRECTED (FOR 30 DAYS) 10/12/2019 Suspended Start: 10-07-2019 2 mg, Intraven ous, EVERY 4 HOURS PRN, Seizures, Starting 10/07/19 at 0255 Start: 10-07-2019 End: 08-07-2022 LORazepam (Ativan) 1 MG tabl et Indications: Adjustment reaction with anxiety and depression Take 1 tablet (1 mg) by mouth every 6 hours as needed for anxiety for up to 5 doses. 5 tablet 0 08/07/2022 Active Start: 01-07-2018 End: 07-26-2024 take 1 tablet by mouth every eight hours Lorazepam 1 MG tablet Discontinued 1 mg PO Q8H January 07, 2018 12:00am July 26, 2024 1:54pm Seizure 08, , 20 Start: 01-07-2018 take 1 mg by mouth o nce daily as needed Lorazepam Active 1 MG PO DAILY NEEDED January 07, 2018 12:00am Start: 01-31-2016 End: 03-01-2016 take 1 tablet by mouth once daily as needed LORazepam 1 MG Oral Tablet 1 (one) Tablet daily as needed for 30 days Quantity: 30 {Tablet} Refills: 0 Ordered: 31-Jan-2016 Dylan Velarde OliviaDylan carias Start : 31-Jan-2016 End : 01-Mar-2016 Inactive Comments: Medication taken as needed. Comment on above: Medication taken as needed. take 1 tablet by yumi th if needed for SEIZURE GERATER THAN 5 MINUTES DIRECTED (FOR 30 DAYS) magnesium (20 sources) Start: 01-31-2016 End: 03-01-2016 take 2 tablets by mouth once daily Magnesium 200 MG Oral Tablet 2 (two) Tablet daily for 30 days Refills: 0 Ordered: 31-Jan-2016 Mable Dylan Angulo Start : 31-Jan-2016 End : 01-Mar-2016 Inactive Start: 01-31-2016 End: 03-01-2016 take 2 tablets by mouth once daily Magnesium 200 MG Oral Tablet 2 (two) Tablet daily for 30 days Refills: 0 Ordered: 31-Jan-2016 Dylan Velarde CNP, CNP, Mary E Start : 31-Jan-2016 End : 01-Mar-2016 Inactive melatonin 3 mg oral tablet (2 sources) Start: 10-29-2022 End: 11-02-2022 Melatonin tablet 6 mg metaxalone 800 mg oral tablet (20 sources) Muscle Relaxant Start: 05-31-2017 End: 11-30-2017 take 1 tablet by mouth three times daily as needed Metaxalone 800 MG Oral Tablet 1 (one) Tablet tid prn for 0 days Quantity: 20 {Tablet} Refills: 0 Ordered: 30-Nov-2017 Kaylyn Juares Start : 31-May-2017 End : 30-Nov-2017 Inactive 7 actuat mometasone furoate 0.11 mg/actuat dry powder inhaler (20 sources) Corticosteroid Start: 02-10-2017 End: 03-02-2017 take 1 puff(s) by inhalation twice daily Asmanex 7 Metered Doses 110 MCG/INH Inhalation Aerosol Powder Breath Activated 1 (one) Puff bid for 0 days Quantity: 2 {Inhalation} Refills: 0 Ordered: 02-Mar-2017 Prerna De La Garza LPN Start : 10-Feb-2017 End : 02-Mar-2017 Inactive Start: 03-01-2015 End: 08-09-2015 take 1 puff(s) by inhalation twice daily ASMANEX 14 METERED DOSES, 220MCG/INH (Inhalation Aerosol Powder Breath Activated) 1 (one) Puff bid for 0 days Quantity: 1 {Inhaler} Refills: 3 Ordered: 09-Aug-2015 Prerna De La Garza LPN Start : 01-Mar-2015 End : 09-Aug-2015 Discontinued 1 ml morphine sulfate 4 mg/ml injection (1 source) Opioid Agonist Start: 10-07-2019 End: 10-07-2019 morphine sulfate (PF) injection 2 mg mycophenolate mofetil 500 mg oral tablet (20 sources) Start: 10-25-2018 End: 10-07-2019 take 1 tablet by mouth twice daily CellCept 500 MG Oral Tablet 1 tablet PO two times daily for 0 days Refills: 0 Ordered: 06-Dec-2018 Frederic HENRY Prerna Start : 25-Oct-2018 End : 06-Dec-2018 Inactive nextplanon (20 sources) nextplanon Inactive nextplanon Activ e nitrofurantoin, macrocrystals 25 mg / nitrofurantoin, monohydrate 75 mg oral capsule (1 source) Nitrofuran Antibacterial Start: 07-18-2021 End: 07-25-2021 take 1 capsule by mouth twice daily nitrofurantoin monohydrate and macrocrystal (MACROBID) 100 mg capsule Take 1 capsule by mouth twice daily for 7 days. 14 capsule 0 07/18/2021 07/25/2021 Comment on above: Take 1 capsule by [facility] twice daily for 7 days. nystatin 130117 unt/ml oral suspension (1 source) Polyene Antifungal Start: 07-24-2018 End: 10-07-2019 take 5 mL by mouth four times daily nystatin (MYCOSTATIN) 599341 UNIT/ML suspension Take 5 mLs by mouth 4 times daily 473 mL 0 07/24/2018 10/07/2019 Discontinued (LIST CLEANUP) omeprazole 20 mg delayed release oral tablet (20 sources) Proton Pump Inhibitor Start: 12-06-2018 End: 03-08-2019 take 1 tablet by mouth once daily PriLOSEC OTC 20 MG Oral Tablet Delayed Release 1 (one) Tablet Tablet daily as directed for 0 days Quantity: 30 {Tablet} Refills: 0 Ordered: 08-Mar-2019 Alexis Iqbal LPN Start : 06-Dec-2018 End : 08-Mar-2019 Inactive Start: 12-24-2017 End: 10-24-2018 take 1 tablet by mouth once daily PriLOSEC OTC 20 MG Oral Tablet Delayed Release 1 (one) Tablet Tablet daily as directed for 0 days Quantity: 30 {Tablet} Refills: 0 Ordered: 24-Oct-2018 Louise Cunningham Start : 24-Dec-2017 End : 24-Oct-2018 Inactive Ondansetron 4mg/2ml (ZOFRAN) injection 4 mg (2 sources) Start: 10-29-2022 End: 11-02-2022 take 4 mg intravenously every six hours as needed Ondansetron 4mg/2ml (ZOFRAN) injection 4 mg ondansetron ODT (Zofran-ODT) disintegrating tablet 4 mg (2 sources) Start: 07-30-2022 End: 08-07-2022 take 1 tablet by mouth every eight hours as needed for nausea and vomiting ondansetron ODT (Zofran-ODT) disintegrating tablet 4 mg OXcarbazepine 300 mg oral tablet (20 sources) Anti-epilep tic Agent Start: 10-30-2022 End: 11-02-2022 take 1 tablet by mouth once daily at bedtime 150 mg, Oral, DAILY AT BEDTIME, First dose on Wed10/30/22 at 2100, Until Discontinued Swallow tablet whole; do not crush, split or chew. Contact pharmacy if alternate route or dose is needed. Start: 10-11-2019 End: 04-12-2024 take 1 tablet by mouth at bedtime Oxcarbazepine 150 mg tablet Discontinued 150 mg PO AT BEDTIME October 14, 2020 12:00am April 12, 2024 3:06pm SEIZURES Start: 03-29-2019 End: 10-11-2019 take 1 tablet by mouth twice daily Oxcarbazepine 150 MG tablet Discontinued 150 mg PO TWICE A DAY October 06, 2019 12:00am October 11, 2019 3:17pm End: 10-08-2019 OXcarbazepine (TRILEPTAL PO) Take by mouth 0 10/08/2019 Discontinued (Stop Taking at Discharge) Comment on above: Take 150 mg by mouth daily at bedtime. pantoprazole 20 mg delayed release oral tablet (20 sources) Proton Pump Inhibitor Start: 5 End: 5 take 1 tablet by mouth once daily PROTONIX, 20MG (Oral Tablet Delayed Release) 1 (one) Tablet DR daily for 15 days Quantity: 15 {Tablet} Refills: 0 Ordered: 01-Mar-2015 Prerna De La Garza LPN Start : 26-Feb-2015 End : 01-Mar-2015 Discontinued phenol 14 mg/ml mouthwash (1 source) Start: 9 End: 0 take 1 spray(s) by mouth every two hours as needed phenol 1.4 % LIQD mouth spray Take 1 spray by mouth every 2 hours as needed for Sore Throat 118 mL 0 07/24/2018 10/07/2019 Discontinued (LIST CLEANUP) polyethylene glycol 3350 93627 mg powder for oral solution (8 sources) Osmotic Laxative Start: 3 End: 3 Polyethylene glycol (MIRALAX) packet 17 g Start: 07-30-2022 End: 08-07-2022 take 17 g by mouth every twenty-four hours as needed for constipation 17 g, Oral, Daily PRN, constipation, Starting on [place] 07/30/22 at 1806 1st line for treatment of constipation - give scheduled if no bowel movement in past 24 hours. Start: 10-07-2019 17 g, Oral, DA LAURA PRN, Constipation, Starting 10/07/19 at 0253 First line therapy for constipation take 17 g by mouth t wice daily as needed for constipation polyethylene glycol, PEG, 3350 (Miralax) 17 g packet Take 17 g by mouth 2 times daily as needed (constipation). 0 Active polyethylene glycol 3350 [id number] mg / potassium chloride 2970 mg / sodium bicarbonate 6740 mg / sodium chloride 5860 mg / sodium sulfate 62237 mg powder for oral solution (10 sources) Osmotic Laxative Start: 04-01-2022 peg 3350-Elec trolytes (GOLYTELY) 236-22.74-6.74 -5.86 gram suspension Indications: Acute constipation , Generalized abdominal pain Sip on it until gone 4000 mL 04/01/2022 Suspended Comment on above: Sip on it until gone microencapsulated potassium chloride 10 meq extended release oral tablet (20 sources) Start: 10-30-2022 End: 10-30-2022 Potassium chloride (K-DUR) tablet ER 40 mEq Start: 07-31-2022 End: 07-31-2022 potassium chloride CR (Klor- Con M10) ER tablet 40 mEq Start: 10-07-2019 potassium chlo ride (KLOR-CON M) extended release tablet 40 mEq Start: 11-14-2018 End: 12-06-2018 take 1 tablet by mouth once daily Potassium Chloride ER 10 MEQ Oral Tablet Extended Release 1 Tablet daily for 30 days Quantity: 30 {Tablet} Refills: 1 Ordered: 06-Dec-2018 Prerna De La Garza LPN Start : 14-Nov-2018 End : 06-Dec-2018 Inactive predniSONE 10 mg oral tablet (20 sources) Corticosteroid take 1 mg by mouth once daily PredniSONE 10 MG Oral Tablet daily x6 days (10 MG) Inactive 10 ml propofol 10 mg/ml injection (1 source) General Anesthetic Start: 10-07-19 End: 10-08-19 5-60 mcg/kg/min 74 kg Order-specific weight (2.22-26.64 mL/hr), INTRAVENOUS, CONTINUOUS, Starting on Wed10/06/24 at 2230, Until 10/07/24 at 0330, Titrate to a RASS of 0 to -2 (light sedation). Start at 5-10 mcg/kg/min or continue at current infusion rate. Titrate by 2-5 mcg/kg/min every 2-5 minutes. Contact LIP if dose adjusted by more than 20 mcg/kg/min within 30 minutes. If spontaneous awakening trial (SAT) indicated, turn infusion off and monitor for SAT failure. If patient fails SAT per protocol, then re-start at one-half of the previous dose and titrate to RASS goal. EXPIRES 12 HOURS AFTER OPENED OR SPIKED pyridostigmine bromide 60 mg oral tablet (20 sources) Start: 09-30-19 End: 10-07-19 take 1 tablet by mouth three times daily pyRIDostigmine 60 MG tablet Take 1 tablet by mouth 3 (three) times a day. 90 tablet 09/29/2022 10/06/2022 Discontinued (Therapy completed) Start: 10-07-2019 take 60 mg by mouth three times daily 60 mg, Oral, 3 TIMES DAILY, First dose on 10/07/19 at 0900 ravulizumab-cwvz (ULTOMIRIS) 100 mg/mL injection (10 sources) ravulizumab-cwvz (ULTOMIRIS) 100 mg/mL injection as directed Intravenous Suspended ravulizumab-cwvz (ULTOMIRIS) 100 mg/mL injection as directed Intravenous Active ravulizumab-cwvz (ULTOMIRIS) 100 mg/mL injection as directed Intravenous 0 Active Comment on above: as directed Intraven ous ravulizumab-cwvz (Ultomiris) 1100 MG/11ML injection (6 sources) Start: 02-05-2022 End: 08-07-2022 ravulizumab-cwvz (Ultomiris) 1100 MG/11ML injection Infuse 1,100 mL into a venous catheter every 8 (eight) weeks. 0 02/05/2022 08/07/2022 Discontinued (Stop taking at discharge) Start: 02-05-2022 ravulizumab-cw vz (Ultomiris) 1100 MG/11ML injection Infuse 1,100 mL into a venous catheter every 8 (eight) weeks. 0 02/05/2022 Active ravulizumab-cwvz (ULTOMIRIS) 3,300 mg in Sodium chloride 0.9% 66 mL (total volume) infusion (1 source) Start: 02-12-2023 End: 02-12-2023 ravulizumab-cwvz (ULTOMIRIS) 3,300 mg in Sodium chloride 0.9% 66 mL (total volume) infusion ravulizumab-cwvz (Ultomiris) 300 MG/3ML injection (6 sources) End: 08-03-2022 ravulizumab-cwvz (Ultomiris) 300 MG/3ML injection as directed Intravenous 0 08/03/2022 Discontinued (Entered in error) ravulizumab-cwvz (Ultomiris) 300 MG/3ML injection as directed Intravenous 0 Active rOPINIRole 0.5 mg oral tablet (20 sources) Nonergot Dopamine Agonist Start: 11-07-2019 take 1 tablet by mouth at bedtime rOPINIRole (REQUIP) 0.5 mg tablet take 1 tablet by mouth 1-3 HOURS PRIOR TO BEDTIME 11/07/2019 Suspended Start: 10-06-2019 take 1 mg by mouth at bedtime Ropinirole Active 1 MG PO AT BEDTIME October 06, 2019 12:00am End: 11-13-2022 take 1.5 tablets by mouth once daily rOPINIRole 1 MG tablet Take 1.5 tablets by mouth Every night. 0 11/13/2022 Discontinued take 1 tablet by yumi th once daily rOPINIRole (REQUIP) 0.5 MG tablet Take 0.5 mg by mouth nightly 0 Active Comment on above: take 1 tablet by yumi th 1-3 HOURS PRIOR TO BEDTIME sennosides, [facility] 8.6 mg oral tablet (6 sources) Start: 11-02-2022 End: 11-02-2022 Senna (SENOKOT) tablet 8.6 mg Start: 08-03-2022 End: 08-07-2022 sennosides (Senokot) tablet 17.2 mg 1000 ml sodium chloride 9 mg /ml injection (15 sources) Start: 10-29-2022 End: 11-02-2022 Sodium chloride 0.9% IV solution 250 mL Start: 07-31-2022 End: 08-07-2022 take 10 mL intraluminal route every twelve hours sodium chloride 0.9% (NS) flush 10 mL Start: 07-30-2022 End: 08-07-2022 take 5-40 mL intravenously every twelve hours 5-40 mL, IntraVENous, Every 12 hours, First dose on Taylor 07/30/22 at 1810 For Line Patency: Peripheral IV = 5 mL; Midline or Central Line = 10 mL/lumen. If following IV push medication, administer flush at same rate as the IV push. Flush volume is determined by type of infusion therapy being given. For non-viscous solutions use: Peripheral IV = 5 mL Midline or Central Line = 10 mL/lumen For viscous solutions (i.e. blood components, parenteral nutrition, contrast media, or after obtaining blood sample) use: Peripheral IV = 10 mL Midline or Central Line = 20 mL/lumen Start: 07-30-2022 End: 08-07-2022 5-250 mL/hr, IntraVENous, NV N, if patient receiving piggyback infusions and maintenance fluids are not ordered OR KVO fluids to protect IV site / prevent frequent line interruptions / long duration, Starting on Taylor 07/30/22 at 1806 For piggyback infusion, administer at same rate as piggyback for a total of 25 mL. Enter 25 mL into dose field and piggyback rate into rate field of order. If piggyback is infusing at a rate less than 100 mL/hr, enter 25 mL into dose field and 100 mL/hr into rate field of order. For KVO fluids, enter rate of 20 mL/hr or less into rate field of order. Start: 07-30-2022 End: 08-07-2022 take 5-40 mL intravenously once as needed 5-40 mL, IntraVENous, PRN, line care, After every IV line use, Starting on Taylor 07/30/22 at 1806 For Line Patency: Peripheral IV = 5 mL; Midline or Central Line = 10 mL/lumen. If following IV push medication, administer flush at same rate as the IV push. Flush volume is determined by type of infusion therapy being given. For non-viscous solutions use: Peripheral IV = 5 mL Midline or Central Line = 10 mL/lumen For viscous solutions (i.e. blood components, parenteral nutrition, contrast media, or after obtaining blood sample) use: Peripheral IV = 10 mL Midline or Central Line = 20 mL/lumen Start: 07-30-2022 End: 07-31-2022 sodium chloride 0.9 % infusi on Start: 10-07-2019 10 mL, Intrave nous, EVERY 12 HOURS SCHEDULED (2 times per day), First dose on 10/07/19 at 0900 Start: 10-07-2019 take 10 mL intraveno us route once as needed 10 mL, Intravenous, PRN, Line Care, After every IV line use, Starting 10/07/19 at 0253 sulfamethoxazole 400 mg / trimethoprim 80 mg oral tablet (20 sources) Dihydrofolate Reductase Inhibitor Antibacterial, Sulfonamide Antimicrobial take 1 tablet by mouth twice daily Bactrim 400-80 MG Oral Tablet bid x6 days (400-80 MG) Inactive traMADol hydrochloride 50 mg oral tablet (1 source) Opioid Agonist Start: 022 End: take 1 tablet by mouth every six hours as needed for pain traMADol (ULTRAM) 50 mg tablet Indications: Pelvic pain in female Take 1 tablet by mouth every 6 hours as needed for pain for up to 5 days. 20 tablet 0 07/24/2021 07/29/2021 Comment on above: Take 1 tablet by [facility] every 6 hours as needed for pain for up to 5 days. valproate (DEPACON) 270 mg in dextrose 5 % 100 mL IVPB (1 source) Start: End: 06-06-2 020 take 1 dose by mouth every eight hours 270 mg (rounded from 272 mg = 5 mg/kg 54.4 kg), Intravenous, at 100 mL/hr, Administer over 60 Minutes, EVERY 8 HOURS, First dose on 10/07/19 at 0315 IV and oral dose are equivalent. Administer as a 60 minute infusion with the same frequency as oral products. Switch patient to oral products as soon as possible. zonisamide 100 mg oral capsule (20 sources) Anti-epileptic Agent Start: 024 End: 025 take 2 capsules by mouth once daily in the morning, then take 3 capsules by mouth once daily in the evening Zonisamide 100 mg capsule Active 0 .ROUTE .COMPLEX 150 5 July 06, 2024 12:09pm seizures Take 2 capsules orally every morning and 3 capsules every evening. Start: 07-30-2023 take 2 tablets by mo uth in the morning, then take 3 tablets by mouth at bedtime zonisamide 100 MG capsule Take 2 tablets by mouth in the am and 3 caps at bedtme 150 capsule 5 07/30/2023 Active Start: 11-16-2022 take 2 tablets by mo uth in the morning, then take 3 tablets by mouth at bedtime zonisamide 100 MG capsule Take 2 tablets by mouth in the am and 3 caps at bedtme 150 capsule 3 11/16/2022 Active Start: 10-30-2022 End: 11-02-2022 zonisamide (ZONEGRAN) capsul e 200 mg Start: 03-26-2019 End: 07-06-2024 take 1 capsule by mouth once daily in the morning Zonisamide 100 mg capsule Discontinued 200 mg PO EVERY MORNING 60 4 April 12, 2024 5:53pm July 06, 2024 12:10pm seizures Start: 03-26-2019 End: 04-12-2024 take 1 capsule by mouth twice daily zonisamide (ZONEGRAN) 100 MG capsule Take 1 capsule by mouth 2 times daily 30 capsule 3 10/08/2019 Active Start: 03-26-2019 End: 08-07-2022 take 300 mg by mouth at bedtime Zonisamide Active 300 MG PO AT BEDTIME March 26, 2019 1:00am Start: 12-23-2017 End: 04-12-2024 Zonisamide 100 capsule Disco ntinued 200 mg PO 0800 December 23, 2017 12:00am April 12, 2024 5:55pm seizures Start: 05-28-2015 take 3 capsules by m outh once daily zonisamide (ZONEGRAN) 100 mg capsule Indications: Generalized convulsive epilepsy (HCC) , Somnolence Take 3 capsules by mouth once daily. 270 capsule 1 11/17/2017 Suspended take 2 capsules by m outh twice daily in the morning, then take 3 capsules by mouth at bedtime zonisamide 100 MG capsule Take by mouth 2 times daily. 2 caps in the am , 3 caps at bedtime 0 Active Comment on above: Take 3 capsules by m outh once daily. Problems Active Problems Problem Classification Problem Date Documented Da te Episodic/Chronic Abdominal pain (20 sources) Flank pain; Translations: [Pain, flank, bilateral] Resolved: 7 02-10-2017 Episodic Adjustment disorders (10 sources) Adjustment disorder with mixed anxiety and depressed mood; Translations: [Adjustment disorder with mixed anxiety and depressed mood] Onset: 3 Chronic Administrative/social admission (20 sources) Worried well; Translations: [First encounter by subject] 07-26-2024 Episodic Anxiety disorders (20 sources) Anxiety; Translations: [Anxiety] Onset: 3 12-24-2020 Chronic Comment on above: like PTSD/anxiety wi ll try hydroxyzine Asthma (20 sources) Mild asthma; Translations: [Mild asthma] 02-11-2018 Chronic Comment on above: stable now Blindness and vision defects (20 sources) Blurring of visual image; Translations: [Blurred vision, bilateral] 02-11-2018 Episodic Cancer of cervix (1 source) Atypical squamous cells of undetermined significance on cervical Papanicolaou smear; Translations: [Atypical squamous cells of undetermined significance on cytologic smear of cervix (ASC-US)] Episodic Chronic ulcer of skin (20 sources) Skin ulcer; Translations: [Callous ulcer] 07-19-2019 Chronic Comment on above: small callous betwee n left 5th toe Complication of device; implant or graft (20 sources) Disorder of cardiovascular prostheses and implants; Translations: [Unspecified complication of cardiac and vascular prosthetic device, implant and graft, initial encounter] 08-23-2021 Episodic Complications of surgical procedures or medical care (7 sources) Injury of pharynx; Translations: [Other specified complications of surgical and medical care, not elsewhere classified, initial encounter] Onset: 5 10-13-2024 Episodic Conditions associated with dizziness or vertigo (16 sources) Dizziness; Translations: [Dizziness and giddiness] 05-27-2022 Episodic Contraceptive and procreative management (20 sources) Patient encounter status; Translations: [Encounter for removal of intrauterine contraceptive device] Episodic Diseases of mouth; excluding dental (20 sources) Parotitis; Translations: [Hypertrophy of salivary gland] 02-11-2018 Episodic Comment on above: diagnosed in [place] ? recurrance was given clinda and prednisone Diseases of white blood cells (20 sources) Leukocytosis; Translations: [Elevated WBC count] Onset: 5 Resolved: 1 07-19-2019 Chronic E Codes: Fall (16 sources) Fall (on) (from) other stairs and steps, initial encounter; Translations: [Fall down stairs] 05-27-2022 Episodic E Codes: Natural/environment (20 sources) Insect bite - wound; Translations: [Insect bite] Resolved: 1 07-19-2019 Episodic Epilepsy; convulsions (20 sources) Epilepsy, unspecified, not intractable, without status epilepticus; Translations: [Epilepsy] Onset: 4 Resolved: 4 02-11-2018 Chronic Comment on above: on lamictal and z[facility] samide [facility] [place] Epilepsy; convulsions (20 sources) Seizure; Translations: [Unspecified convulsions] Onset: 0 10-08-2019 Episodic Fluid and electrolyte disorders (20 sources) Hypokalemia; Translations: [Low serum potassium level - finding] Onset: 5 05-05-2018 Episodic Comment on above: replaced K in ER. Genitourinary symptoms and ill-defined conditions (20 sources) Finding of sensation of bladder; Translations: [Feeling of incomplete bladder emptying] 07-19-2019 Episodic Headache, including migraine (20 sources) Tension-type headache, unspecified, not intractable; Translations: [Migraine] Onset: 7 02-11-2018 Chronic Comment on above: rebound component?- pt also doestn tolerate immitrex so will call neurilogy about prev medalso address muscle tension component with MR and massage, sees Dr. Hua at [facility] who sees her for seizure and sent to neurologist at [facility] but not optimal interactionhas used metaxalone without relief, was taking tylenol for headaches Headache; including migraine (20 sources) Headache; Translations: [Headache] 11-02-2020 Episodic Immunizations and screening for infectious disease (20 sources) Encounter for screening for respiratory tuberculosis; Translations: [Tuberculosis screening status] 02-11-2018 Episodic Inflammatory diseases of female pelvic organs (1 source) Acute pelvic inflammatory disease; Translations: [Acute parametritis and pelvic cellulitis] Episodic Intracranial injury (10 sources) Concussion injury of body structure; Translations: [Concussion] 06-16-2023 Episodic Lymphadenitis (20 sources) Lymphadenopathy; Translations: [Lymph node enlargement] 02-11-2018 Episodic Comment on above: left side of face Malaise and fatigue (20 sources) Fatigue; Translations: [Fatigue] Onset: 5 Resolved: 1 02-11-2018 Episodic Comment on above: chronic pain causing fatiue Mycoses (20 sources) Candidiasis of mouth; Translations: [Gisselle, oral] Resolved: 1 03-08-2018 Episodic Nausea and vomiting (20 sources) Nausea; Translations: [Nausea] Onset: 5 Resolved: 7 03-02-2017 Episodic Nonspecific chest pain (20 sources) Atypical chest pain; Translations: [Chest pain] Resolved: 1 02-11-2018 Episodic Comment on above: pleurisy versus othe r? 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] 05-27-2022 Episodic Other aftercare (4 sources) Post-discharge follow-up; Translations: [Encounter for follow-up examination after completed treatment for conditions other than malignant neoplasm] 10-13-2024 Episodic Other bone disease and musculoskeletal deformities (20 sources) Bone pain; Translations: [Bone pain] Resolved: 02-11-2018 Episodic Other connective tissue disease (20 sources) Spasm; Translations: [Muscle spasm] 02-11-2018 Episodic Comment on above: massage therapy Other connective tissue disease (20 sources) Muscle weakness of upper limb; Translations: [Other symptoms and signs involving the musculoskeletal system] 03-26-2019 Episodic Other connective tissue disease (1 source) Pain in lower limb; Translations: [Pain in left leg] Episodic Other disorders of stomach and duodenum (2 sources) Gastroparesis syndrome; Translations: [Gastroparesis] Episodic Other ear and sense organ disorders (1 source) Otalgia, right ear; Translations: [Otalgia, unspecified] 10-11-2023 Episodic Other eye disorders (20 sources) Ocular pain, left eye; Translations: [Pain of left eye] Resolved: 02-11-2018 Episodic Comment on above: [facility]? opth [facility]?-- vs eye pathology ?-- called dr long office and she will see her today at 10:30 Other female genital disorders (1 source) Abnormal uterine bleeding; Translations: [Other specified abnormal uterine and vaginal bleeding] Chronic Other female genital disorders (20 sources) Cervical intraepithelial neoplasia grade 2; Translations: [Moderate cervical dysplasia] Episodic Other female genital disorders (3 sources) Moderate cervical dysplasia; Translations: [Moderate dysplasia of cervix] Episodic Other female genital disorders (1 source) History of dysplasia of cervix; Translations: [Personal history of cervical dysplasia] Episodic Other gastrointestinal disorders (20 sources) Dysphagia; Translations: [Dysphagia] Resolved: 02-11-2018 Episodic Comment on above: period of dysphagia at work, sent home Other gastrointestinal disorders (20 sources) Constipation; Translations: [Constipation, unspecified] Onset: 3 04-04-2022 Episodic Other gastrointestinal disorders (2 sources) Acute constipation; Translations: [Constipation, unspecified] Episodic Other gastrointestinal disorders (1 source) Alteration in bowel elimination; Translations: [Change in bowel habit] Episodic Other gastrointestinal disorders (1 source) Altered bowel function; Translations: [Change in bowel habit] 04-08-2022 Episodic Other gastrointestinal disorders (20 sources) Chronic constipation; Translations: [Other constipation] 07-26-2024 Episodic Other gastrointestinal disorders (20 sources) Abdominal bloating; Translations: [Abdominal distension (gaseous)] 08-16-2024 Episodic Other gastrointestinal disorders (1 source) Abdominal distension (gaseous); Translations: [Abdominal distension (gaseous)] Onset: 5 Episodic Other gastrointestinal disorders (1 source) Other constipation; Translations: [Other constipation] Onset: 5 Episodic Other hereditary and degenerative nervous system conditions (11 sources) Restless legs; Translations: [Restless legs syndrome] Onset: 3 10-06-2022 Chronic Other injuries and conditions due to external causes (1 source) Injury of abdomen; Translations: [Unspecified injury of abdomen, initial encounter] Episodic Other injuries and conditions due to external causes (16 sources) Closed injury of head; Translations: [Unspecified injury of head, initial encounter] 05-27-2022 Episodic Other injuries and conditions due to external causes (10 sources) Injury of head; Translations: [Unspecified injury of head, initial encounter] 06-16-2023 Episodic Other injuries and conditions due to external causes (1 source) Other specified injuries of pharynx and cervical esophagus, initial encounter; Translations: [Other specified injuries of pharynx and cervical esophagus, initial encounter] Onset: 5 Episodic Other lower respiratory disease (20 sources) Cough; Translations: [Cough] Resolved: 1 02-11-2018 Episodic Comment on above: gone Other lower respiratory disease (20 sources) Dyspnea; Translations: [Dyspnea, unspecified] 05-04-2020 Episodic Other lower respiratory disease (2 sources) Rib pain; Translations: [Pleurodynia] Episodic Other lower respiratory disease (13 sources) Pleuritic pain; Translations: [Pleurodynia] 09-07-2022 Episodic Other lower respiratory disease (1 source) Shortness of breath; Translations: [Shortness of breath] Onset: 5 Episodic Other nervous system disorders (20 sources) Myasthenia gravis; Translations: [MG (myasthenia gravis)] Onset: 9 12-06-2018 Chronic Comment on above: will be getting Ada ris for MG IV as per protocol Other nervous system disorders (20 sources) Myasthenic crisis; Translations: [MG, crisis (myasthenia gravis)] Onset: 3 11-12-2020 Chronic Comment on above: really question this because severe respiratory issue better then not able to move muscles well. really question this because severe respiratory issue better then not able to move muscles well.per neuro Dr. Gilmore, had stressors from Mediport on Oct 16 then thombosis of Rt IJ, then on Eliquis. This caused Myestenia crisis per neuro. Currently on Solaris qoweek per port Other nervous system disorders (2 sources) Myasthenia gravis with exacerbation; Translations: [Myasthenia gravis with (acute) exacerbation] Onset: 3 Chronic Other nervous system disorders (1 source) Myasthenia gravis with (acute) exacerbation; Translations: [Myasthenia gravis with (acute) exacerbation (HCC)] Onset: 3 Chronic Other nervous system disorders (5 sources) Myasthenia gravis without (acute) exacerbation; Translations: [Myasthenia gravis without (acute) exacerbation (HCC)] Onset: 2 Chronic Other nervous system disorders (20 sources) Slurred speech; Translations: [Slurred speech] Resolved: 1 02-11-2018 Episodic Comment on above: work mates had her l eave work because of slurred speech Other nervous system disorders (20 sources) Postoperative pain ; Translations: [Other acute postprocedural pain] 10-17-2021 Episodic Other nervous system disorders (13 sources) H/O: musculoskeletal disease; Translations: [Personal history of other diseases of the nervous system and sense organs] 09-07-2022 Episodic Other nervous system disorders (13 sources) H/O: epilepsy; Translations: [Personal history of other diseases of the nervous system and sense organs] 09-07-2022 Episodic Other nervous system disorders (13 sources) Abnormal movement; Translations: [Unspecified abnormal involuntary movements] 09-07-2022 Episodic Other nervous system disorders (1 source) H/O: migraine; Translations: [Personal history of other diseases of the nervous system and sense organs] Onset: 5 10-06-2024 Episodic Other non-traumatic joint disorders (20 sources) Acromioclavicular joint pain; Translations: [Pain in clavicular joint] Resolved: 1 02-11-2018 Episodic Comment on above: ? arthritis like pic ture vs anatomic changes reviewed recent chest xray normal, echo normal Ekg normal stress test pending CT is pending for resp workup for SOB per pulm, will get labs and reevaluate, follow up 3 weeks Other non-traumatic joint disorders (4 sources) Acute pain; Translations: [Pain in left shoulder] 05-27-2022 Episodic Other non-traumatic joint disorders (4 sources) Shoulder pain; Translations: [Pain in left shoulder] 05-27-2022 Episodic Other non-traumatic joint disorders (20 sources) Pain in left shoulder; Translations: [Acute pain of left shoulder due to trauma] 06-04-2022 Episodic Other nutritional; endocrine; and metabolic disorders (1 source) Other disorders of phosphorus metabolism; Translations: [OTH DISORDERS PHOSPHORUS] Onset: 7 Chronic Other nutritional; endocrine; and metabolic disorders (11 sources) Obese class I; Translations: [Obesity, unspecified] Onset: 3 10-06-2022 Chronic Other nutritional; endocrine; and metabolic disorders (20 sources) Hyperammonemia; Translations: [Disorder of urea cycle metabolism, unspecified] 07-06-2024 Chronic Other nutritional; endocrine; and metabolic disorders (20 sources) Weight loss; Translations: [Weight loss] 02-11-2018 Episodic Other nutritional; endocrine; and metabolic disorders (7 sources) Body mass index 25-29 - overweight; Translations: [BMI 28.0-28.9,adult] 12-24-2020 Episodic Other nutritional; endocrine; and metabolic disorders (10 sources) Overweight in adulthood with body mass index of 25 or more but less than 30; Translations: [BMI 28.0-28.9,adult] 12-24-2020 Episodic Other skin disorders (20 sources) Night sweats; Translations: [Night sweats] Resolved: 1 02-11-2018 Episodic Other upper respiratory disease (20 sources) Nasal sinus problem; Translations: [Sinus pressure] Resolved: 7 03-02-2017 Episodic Other upper respiratory disease (20 sources) Pain in throat Episodic Other upper respiratory infections (20 sources) Chronic sinusitis, unspecified; Translations: [Bacterial sinusitis] Resolved: 9 02-11-2018 Chronic Other upper respiratory infections (20 sources) Sore throat symptom; Translations: [Sore throat] 02-11-2018 Episodic Phlebitis; thrombophlebitis and thromboembolism (20 sources) Venous thrombosis; Translations: [Internal jugular vein thrombosis, right] 10-25-2020 Episodic Comment on above: from port has placed a day got DVT there. has headache signs and symptoms. not on OCP not have covid vaccine related to surgery and port placement. will treat with eliquis she has controlled seizures. no risk of anticoag. seizures controlled. willnot do risky head trauma behavior or bleedign behavior no nsaids no etoh asa willget US doplr andsee ifknow where stop may need CT to see extension. on eliquis for three months for sure. will see Dr Varela he still is not sure whether will need intermediate card tender eliquis and what will look like will see her in follow up Pleurisy; pneumothorax; pulmonary collapse (20 sources) Pleurisy; Translations: [Pleurisy] Resolved: 7 02-10-2017 Episodic Comment on above: To ER records review ed, encourage naprosyn Residual codes; unclassified (20 sources) Influenza-like symptoms; Translations: [Flu-like symptoms] Resolved: 1 11-30-2017 Episodic Residual codes; unclassified (20 sources) Body mass index (BMI) 23.0-23.9, adult; Translations: [Body mass index (BMI) 21.0-21.9, adult] Resolved: 9 08-03-2017 Episodic Residual codes; unclassified (20 sources) Body Mass Index between 19-24, adult; Translations: [Finding of body mass index] Resolved: 7 02-10-2017 Episodic Residual codes; unclassified (20 sources) H/O: Disorder; Translations: [History of parotitis] 03-08-2018 Episodic Residual codes; unclassified (20 sources) Other specified health status; Translations: [Apyrexial] 07-19-2019 Episodic Comment on above: pt is stable and afe brile to get Solaris treatment Residual codes; unclassified (20 sources) Non-smoker; Translations: [Non-smoker] 07-19-2019 Episodic Residual codes; unclassified (18 sources) Disturbance in sleep behavior; Translations: [Sleep disturbance] 11-12-2020 Episodic Comment on above: she is having troubl e sleeping because of diagnosis of clot-- will do sleep hygiene, Breethe bettina, exercise during day. mary ellen. Residual codes; unclassified (1 source) Procedure not done; Translations: [Procedure and treatment not carried out, unspecified reason] Episodic Respiratory failure; insufficiency; arrest (adult) (1 source) Ventilator finding; Translations: [Dependence on respirator [ventilator] status] Onset: 5 10-06-2024 Chronic Respiratory failure; insufficiency; arrest (adult) (1 source) Acute respiratory failure; Translations: [Acute respiratory failure with hypoxia] Onset: 5 10-06-2024 Episodic Screening or history of mental health and substance abuse (20 sources) H/O: anorexia nervosa; Translations: [History of anorexia nervosa] 02-11-2018 Episodic Sexually transmitted infections (not HIV or hepatitis) (2 sources) Human papillomavirus deoxyribonucleic acid test positive, high risk on cervical specimen; Translations: [Cervical high risk human papillomavirus (HPV) DNA test positive] Episodic Superficial injury; contusion (20 sources) Contusion of scalp; Translations: [Contusion of scalp, initial encounter] Episodic Unclassified (20 sources) Other general symptoms and signs; Translations: [Body mass index (BMI) 23.0-23.9, adult] Resolved: 1 02-11-2018 Episodic Unclassified (1 source) Other specified postprocedural states; Translations: [OTH SPECIFIED POSTPROCED] Onset: 7 Unclassified (20 sources) BMI 22.0-22.9, adult Unclassified (12 sources) Afebrile Unclassified (8 sources) Nonsmoker Unclassified (8 sources) MG, crisis (myasthenia gravis) Unclassified (3 sources) BMI 28.0-28.9,adult Unclassified (1 source) Encounter for dietary counseling and surveillance Unclassified (1 source) Z71.3 - Dietary counseling and surveillance,K31.84 - Gastroparesis,K59.09 - Other constipation,G70.00 - Myasthenia gravis without (acute) exacerbation Urinary tract infections (1 source) Acute cystitis; Translations: [Acute cystitis with hematuria] Episodic Past or Other Problems Problem Classification Problem Date Documented Date Episodic/Chronic Asthma (20 sources) Asthma External cause codes: Natural/environment (4 sources) Bitten or stung by nonvenomous insect and other nonvenomous arthropods, initial encounter; Translations: [Insect bite] 12-06-2018 Headache, including migraine (20 sources) Headache, including migraine Other aftercare (1 source) Other intermediate card tender (current) drug therapy; Translations: [OTH SOCIAL SERVICES ANALYST CURRENT DR] Onset: 12-17-2016 Episodic Other connective tissue disease (20 sources) Weakness of hand; Translations: [Weakness of hand] Onset: 04-08-2016 Resolved: 11-12-2020 02-11-2018 Episodic Other eye disorders (6 sources) Pain of left eye; Translations: [Eye pain, left] 10-24-2018 Comment on above: [facility]? opth raisa christi?-- vs eye pathology ?-- called dr long office and she will see her today at 10:30 Other screening for suspected conditions (not mental disorders or infectious disease) (18 sources) Serum potassium level below reference range; Translations: [Cancer cervix screening status] Onset: 10-06-2022 11-14-2018 Episodic Residual codes; unclassified (2 sources) H/O: surgery; Translations: [S/P thymectomy] Onset: 07-24-2018 07-24-2018 Episodic Residual codes; unclassified (8 sources) Acquired absence of other organs; Translations: [Other postprocedural status] Onset: 07-24-2018 02-12-2022 Episodic Spondylosis; intervertebral disc disorders; other back problems (20 sources) Neck pain; Translations: [Cervicalgia] Onset: 09-21-2016 09-21-2016 Episodic Tuberculosis (20 sources) Tuberculosis Unclassified (20 sources) Atypical migraine Unclassified (20 sources) Non-smoker; Translations: [Non-smoker] 02-11-2018 Unclassified (20 sources) Onset: 11-02-2022 Resolved: 08-12-2023 Unclassified (20 sources) BMI 23.0-23.9, adult Unclassified (20 sources) Blurred vision, bilateral Unclassified (20 sources) Sinusitis, bacterial Unclassified (20 sources) Unspecified Diagnosis 02-11-2018 Unclassified (20 sources) Facial pressure Unclassified (20 sources) vaginal 02-11-2018 Comment on above: 2011 Unclassified (20 sources) Parotiditis Unclassified (20 sources) Flu-like symptoms Unclassified (20 sources) BMI 21.0-21.9, adult Unclassified (20 sources) Muscle spasm Unclassified (20 sources) History of parotitis Unclassified (20 sources) BMI between 19-24,adult Unclassified (20 sources) Pain in clavicular joint Unclassified (20 sources) Pain, flank, bilateral Unclassified (20 sources) Eye pain, left Unclassified (20 sources) Sinus pressure Unclassified (20 sources) Lymph node enlargement Unclassified (20 sources) History of anorexia nervosa Unclassified (20 sources) Salivary gland enlargement Unclassified (12 sources) Non-smoker; Translations: [Non-smoker] 03-08-2018 Unclassified (20 sources) Low serum potassium Unclassified (20 sources) Gisselle, oral Unclassified (20 sources) Body mass index 20-24 - normal; Translations: [BMI 21.0-21.9, adult] Resolved: 12-06-2018 03-08-2018 Unclassified (6 sources) Tuberculosis screening status; Translations: [Screening examination for pulmonary tuberculosis] 10-24-2018 Unclassified (6 sources) Finding of body mass index; Translations: [BMI between 19-24,adult] Resolved: 02-10-2017 02-10-2017 Unclassified (15 sources) Insect bite Unclassified (20 sources) MG (myasthenia gravis) Unclassified (13 sources) Finding of sensation of bladder; Translations: [Feeling of incomplete bladder emptying] 07-19-2019 Unclassified (12 sources) Elevated WBC count Unclassified (13 sources) Callous ulcer Unclassified (20 sources) Internal jugular vein thrombosis, right Unclassified (4 sources) Sleep disturbance Results Test Name Value Interpretation Reference Range Facility Chest PA and Lateralon 10-13 Chest PA and Lateral [facility] Imaging Services [address] [place] [address] Chest PA and Lateral MR#: [id number] Acct: [id number] Name: DOUG FLANAGAN Rep #: [id number] : 1990 F 34 From: Chris delgado MD PCP: Dr. Leander Patel MD Status: REG CLI Study: Chest PA and Lateral Date of Exam: 10/13/24 Exam# [id number] Ordering Dr: Louise Torrez PROCEDURE: CHEST PA AND LATERAL 10/13/2024 REASON FOR EXAM: S/P INTUBATION TECHNIQUE: CHEST PA AND LATERAL COMPARISON: 10/06/2024. FINDINGS: Right Port-A-Cath is in good position. The lungs are expanded. There is no demonstrated parenchymal abnormality. There is no demonstrated pleural abnormality. Normal heart and pericardium. Normal mediastinum and shima. Normal visualized pulmonary arteries. Normal visualized aortic arch and descending thoracic aorta. Normal visualized thoracic spine. Normal visualized ribs, clavicles, and shoulders. There is no demonstrated abnormality of the visualized soft tissue structures of the upper abdomen. RAD/Chest PA and Lateral IMPRESSION: No evidence for acute abnormality. Reading Location: [place] [address] CC: BECCA Torrez; Dr. Leander Patel MD Hosiery Mater: Signed Normal [facility] Internal Medicine Office Vis [facility] 10-13-2024 Internal Medicine Office Visit [facility] [address] [place] [address] OFFICE VISIT Date of Service: 10/13/24 MR#: [id number] Acct: [id number] Name: DOUG FLANAGAN Rep #: [id number] : 1990 Provider: BECCA pichardo Age/Sex: 34/F Location: [facility] Status: Signed Intake Vital Signs 10/06/24 13:41 10/11/24 08:58 10/13/24 14:55 Height 5 ft 5 ft 5 ft 3 in Weight: 156 lb BMI 27.6 BP 118/62 Blood Pressure Location Lt brachial Position Sitting Respiration 18 Pulse 104 H Pulse Source Monitor Temp 97.8 F Temp Source Temporal Pulse Oximetry (%) 97 Oxygen Delivery Method room air Intake Visit Reasons: ACUTE [facility]-REC[facility] REQUESTED Chief Complaint: s/p intubation, nausea, sore throat, shortness of breath Is patient in pain?: Yes (8 throat/chest pain pt reports is from intubation ) Allergies barium sulfate Allergy (Severe, Verified 10/13/24 14:50) Other levetiracetam (From Keppra) Allergy (Verified 10/13/24 14:50) Other Penicillins Allergy (Verified 10/13/24 14:50) Rash phenytoin (From Dilantin) Allergy (Verified 10/13/24 14:50) PT UNSURE OF REACTION prochlorperazine (From Compazine) Allergy (Verified 10/13/24 14:50) Other shellfish derived Allergy (Verified 10/13/24 14:50) Other technetium-99m Adverse Reaction (Severe, Verified 10/13/24 14:50) Other soy Adverse Reaction (Verified 10/13/24 14:50) NEEDS FOLLOW-UP Medications ???Medication ???Instructions ???Recorded ???Confirmed ???Type levonorgestrel (Mirena) 20 mcg intrauterine UD 10/1410/13/24 History control diazepam 10 mg/spray (0.1 mL) 10 mg intranasal PRN PRN Seizures 08/08/22 10/13/24 History nasal spray (Valtoco) zonisamide 100 mg capsule 300 mg (3 x 100 mg) PO QPM 4 10/13/24 Rx seizures #90 caps escitalopram oxalate 10 mg tablet 10 mg PO QHS #30 tabs 07/06/24 Rx (Lexapro) lamotrigine 250 mg tablet,extended 250 mg PO BID seizures #60 tabs 07/06/24 10/13/24 Rx release 24 hr zonisamide 100 mg capsule See Rx Instructions .Route 5 10/13/24 Rx .COMPLEX seizures #150 caps ravulizumab-cwvz 100 mg/mL 3,300 mg (33 mL) .Route .q8 weeks 07/27/24 10/13/24 Rx intravenous solution (Ultomiris) #33 mL lubiprostone 8 mcg capsule 8 mcg PO QDAY #30 caps 10/10/24 Rx (Amitiza) lidocaine HCl 2 % mucosal solution 10 ml PO TID PRN pain #100 mL 10/13/24 Rx (Lidocaine Viscous) ondansetron 4 mg disintegrating 4 mg PO Q6H PRN nausea and 5 10/13/24 Rx tablet vomiting #14 tabs PFSH Medical History Encounter to establish care Chronic abdominal pain Chronic constipation Hx of peripheral vascular disease Normal echocardiogram ( 05/18/16) Anemia Migraine headache Injury of head and neck Seizures Difficulty swallowing Difficulty chewing Non-smoker Shortness of breath on exertion Leg cramps History of stress test Chest pain Myasthenia gravis Surgical History History of colonoscopy (04/02/22) Hx of appendectomy Hx of total hip arthroplasty Hx of thymectomy Family History Mother Heart disease Cervical cancer Father No problems noted. Social History household members: children current occupational status: disabled pets and animals: Yes pets and animals: dog(s) and turtle(s) Smoking Status: Never smoker second hand exposure: Yes alcohol intake: never substance use type: does not use caffeine: Yes (1 cup coffee daily on avg) Type: coffee do you feel safe at home: Yes HPI HPI Chief Complaint: s/p intubation, nausea, sore throat, shortness of breath Details: DOUG FLANAGAN, is a 34 F who presents to the office today for follow-up after hospital discharge from [facility] October 09, 2024. Patient was admitted to hospital for grand mal seizure patient was intubated for airway protection. Patient has not had any seizure-like activity at this time. She states 2 days prior to having her seizures she took contrast dye for a gastroparesis study. She has had contrast dye in the past which preceded having a seizure. Believes that the radioactive dye may have something to do with seizure activity. Patient was intubated complains of sore throat throat pain pain with swallowing as well as nausea without vomiting. She did have 1 episode of coughing up sputum that was tinged with blood. States while she was in the hospital she did not have any further seizures drug levels were in normal limits she states that she was not on any new medications she also has a follow-up with her neurolog (more content not included)... Normal [facility] Lamotrigine (Lamictal) Level on 10-10-2024 LAMOTRIGINE 8.6 ug/mL Normal 2.0-20.0 [facility] Comment on above: Result Comment: Dete ction Limit = 1.0 Performed at: - [address] [id number] Conveyor Worker: Dakota Beal MD, Phone: [phone] Performed By: #### L 3300.4400 #### [facility] Laboratory [address] [place], [place], [address] Basic metabolic 2000 panelon 10-09-2024 Anion gap [Moles/Vol] 15 mmol/L Normal 8-15 [facility] Comment on above: Order Comment: Speci nelia Type: BLOOD SPECIMEN Ordering Facility: [facility] Address: [address] [place] [address] Performed By: #### 2 4321-2, 2776-05, #### [facility] CLIA [id number] [address] [place] [address] [place] Calcium [Mass/Vol] 9.4 mg/dL Normal 8.5-10.2 [facility] Comment on above: Order Comment: Marcelai nelia Type: BLOOD SPECIMEN Ordering Facility: [facility] Address: [address] [place], [place] [address] Performed By: #### 2 4321-2, 2776-05, #### [facility] CLIA [id number] [address] [place] [address] [place] Chloride [Moles/Vol] 106 mmol/L Normal 98-107 [facility] Comment on above: Order Comment: Marcelai nelia Type: BLOOD SPECIMEN Ordering Facility: [facility] Address: [address] [place] [address] Performed By: #### 2 4321-2, 2776-05, #### [facility] CLIA [id number] [address] [place] [address] [place] CO2 [Moles/Vol] 21 mmol/L Low 22-30 [facility] Comment on above: Order Comment: Juan Jose pickens Type: BLOOD SPECIMEN Ordering Facility: [facility] Address: [address] [place] [address] Performed By: #### 2 4321-2, 2777-, #### [facility] CLIA [id number] [address] [place] Creatinine [Mass/Vol] 0.67 mg/dL Normal 0.58-0.96 [facility] Comment on above: Order Comment: Juan Jose pickens Type: BLOOD SPECIMEN Ordering Facility: [facility] Address: [address] [place] [address] Performed By: #### 2 4321-2, 2777, #### [facility] CLIA [id number] [address] Creatinine and Glomerular filtration rate.predicted panel (S/P/Bld) 116 mL/min/1.73m??? Normal >=60 [facility] Comment on above: Order Comment: Juan Jose pickens Type: BLOOD SPECIMEN Ordering Facility: [facility] Address: [address] [place] [address] Result Comment: Mary mated Glomerular Filtration Rate (eGFR) is calculated using the 2020 CKD-EPI creatinine equation. This equation utilizes serum creatinine, sex, and age as parameters. The creatinine assay has traceable calibration to isotope dilution-mass spectrometry. Refer to KDIGO guidelines for clinical interpretation. In patients with unstable renal function, e.g. those with acute kidney injury, the eGFR may not accurately reflect actual GFR. Performed By: #### 2 4321-2, 2777-, #### [facility] CLIA [id number] [address] [place] Glucose [Mass/Vol] 104 mg/dL High 74-99 [facility] Comment on above: Order Comment: Juan Jose pickens Type: BLOOD SPECIMEN Ordering Facility: [facility] Address: [address] [place] [address] Result Comment: The [place] Diabetes Association (ADA) provides guidance for cutoff [...] Standards of Medical Care in Diabetes 2016, [place]. Diabetes Care. 2016.39(Suppl 1). Performed By: #### 2 4321-2, 2776-05, #### [facility] CLIA [id number] [address] [place] [address] [place] Potassium [Moles/Vol] 3.6 mmol/L Low 3.7-5.1 [facility] Comment on above: Order Comment: Speci men Type: BLOOD SPECIMEN Ordering Facility: [facility] Address: [address] [place] [address] Performed By: #### 2 4321-2, 2776-05, #### [facility] CLIA [id number] [address] [place] [address] [place] Sodium [Moles/Vol] 142 mmol/L Normal 136-144 [facility] Comment on above: Order Comment: Speci men Type: BLOOD SPECIMEN Ordering Facility: [facility] Address: [address] [place] [address] Performed By: #### 2 4321-2, 2776-05, #### [facility] CLIA [id number] [address] [place] [address] [place] Urea nitrogen [Mass/Vol] 6 mg/dL Low 7-21 [facility] Comment on above: Order Comment: Speci men Type: BLOOD SPECIMEN Ordering Facility: [facility] Address: [address] [place] [address] Performed By: #### 2 4321-2, 2777-1, 86411-0 #### [facility] CLIA [id number] [address] CBC panel Auto (Bld)on 10-09 Erythrocyte distribution width (RBC) [Ratio] 12.8 % Normal 11.5-15.0 [facility] Comment on above: Order Comment: Speci men Type: BLOOD SPECIMEN Ordering Facility: [facility] Address: [address] [place] [address] Performed By: #### 5 7021-8 #### [facility] CLIA [id number] [address] Hematocrit (Bld) [Volume fraction] 39.7 % Normal 36.0-46.0 [facility] Comment on above: Order Comment: Speci men Type: BLOOD SPECIMEN Ordering Facility: [facility] Address: [address] [place] [address] Performed By: #### 5 7021-8 #### [facility] CLIA [id number] [address] Hemoglobin (Bld) [Mass/Vol] 13.0 g/dL Normal 11.5-15.5 [facility] Comment on above: Order Comment: Speci men Type: BLOOD SPECIMEN Ordering Facility: [facility] Address: [address] [place] [address] Performed By: #### 5 7021-8 #### [facility] CLIA [id number] [address] MCH (RBC) [Entitic mass] 30.0 pg Normal 26.0-34.0 [facility] Comment on above: Order Comment: Speci men Type: BLOOD SPECIMEN Ordering Facility: [facility] Address: [address] [place] [address] Performed By: #### 5 7021-8 #### [facility] CLIA [id number] [address] MCHC (RBC) [Mass/Vol] 32.7 g/dL Normal 30.5-36.0 [facility] Comment on above: Order Comment: Speci men Type: BLOOD SPECIMEN Ordering Facility: [facility] Address: [address] [place] [address] Performed By: #### 5 7021-8 #### [facility] CLIA [id number] [address] OF [facility] MCV (RBC) [Entitic vol] 91.5 fL Normal 80.0-100.0 [facility] Comment on above: Order Comment: Speci men Type: BLOOD SPECIMEN Ordering Facility: [facility] Address: [address] [place] [address] Performed By: #### 5 7021-8 #### [facility] CLIA [id number] [address] STATES OF [facility] Nucleated RBC (Bld) [#/Vol] 10*3/uL Normal <0.01 [facility] Comment on above: Order Comment: Speci men Type: BLOOD SPECIMEN Ordering Facility: [facility] Address: [address] [place] [address] Performed By: #### 5 7021-8 #### [facility] CLIA [id number] [address] [place] Platelet mean volume (Bld) [Entitic vol] 9.3 fL Normal 9.0-12.7 [facility] Comment on above: Order Comment: Speci men Type: BLOOD SPECIMEN Ordering Facility: [facility] Address: [address] [place] [address] Performed By: #### 5 7021-8 #### [facility] CLIA [id number] [address] [place] Platelets (Bld) [#/Vol] 241 10*3/uL Normal 150-400 [facility] Comment on above: Order Comment: Speci men Type: BLOOD SPECIMEN Ordering Facility: [facility] Address: [address] [place] [address] Performed By: #### 5 7021-8 #### [facility] CLIA [id number] [address] [place] RBC (Bld) [#/Vol] 4.34 10*6/uL Normal 3.90-5.20 [facility] Comment on above: Order Comment: Speci men Type: BLOOD SPECIMEN Ordering Facility: [facility] Address: [address] [place] [address] Performed By: #### 5 7021-8 #### [facility] CLIA [id number] [address] WBC (Bld) [#/Vol] 7.69 10*3/uL Normal 3.70-11.00 [facility] Comment on above: Order Comment: Speci men Type: BLOOD SPECIMEN Ordering Facility: [facility] Address: [address] [place] [address] Performed By: #### 5 7021-8 #### [facility] CLIA [id number] [address] CNDSon 10-09-2024 CNDS HNO ID: [id number] Author: MICHELLE PATEL MD Service: Hospital Medicine [...] Hospital Doctor: Michelle Patel,* Primary Care Provider: Dylan Velarde CNP My Medical Team Members: Treatment [...] call for appointment?: Yes Leander Patel MD [phone] [facility] [address] PCP Requested Referral Additional Provider to Provider [...] results. FOLLOW-UP APPOINTMENTS ALREADY SCHEDULED WITH A [facility] PROVIDER: Future Appointments Date Time Provider Department Center 12/07/2024 11:00 AM Heladio Mitchell MD [facility] ALLERGIES Allergen Reactions Barium Sulfate Other: See [...] medication with the same name was changed. (more content not included)... Normal [facility] CONSULTon 10-09-2024 CONSULT HNO ID: [id number] Author: BONG SINGLETARY APRN.CNP Service: Gastroenterology Author Type: Nurse Practitioner Type: Consults Filed: 10/09/2024 10:58 Note Text: INITIAL CONSULT GASTROENTEROLOGY SERVICE DATE: 10/09/2024 SERVICE TIME: 0900 Consulting Service: Gastroenterology Chief Complaint: seizures Opinion/advice regarding: chronic constipation Subjective HPI: This is a 34 year old female with a past medical history of myasthenia gravis, epilepsy, migraine headaches, chronic slow transit constipation and depression who presented to [facility] with c/o breakthrough seizure/status epilepticus via EMS. According to chart review and bedside evaluation with the patient with her mother present, she was given intranasal diazepam by her mother for concerns of seizure. The patient's mother was concerned that she appeared post-ictal longer than normal and called EMS. In the ED at [place], she began to have a seizure and underwent intubation for airway protection following ativan administration. She was then transferred to [facility] for neurology evaluation and management. 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 Normal [facility] CONSULT PROGon 10-09-2024 CONSULT PROG HNO ID: [id number] Author: SALOME GALE APRN.PLATFORM MATERIAL HANDLING SUPERVISOR Service: Neurology General Author Type: Nurse Practitioner Type: Consult Progress Note Filed: 10/09/2024 12:04 Note Text: NEUROLOGY CONSULT PROGRESS NOTE SERVICE DATE: 10/09/2024 SERVICE TIME: 08 Current Attending Provider: Berry Greer MD Subjective [...] 80 10/07/2024 96 No results found for: ICA Calcium, Total (mg/dL) Date Value 10/09/2024 9.4 [...] Value 10/06/2024 0.3 No results found for: AMYLASE No results found for: LIPASE No results found for: LACTATE BEM Reading: This bedside EEG was recorded from 0501 on 10/08/24 until 0625 on 10/09/24 and is suggestive of generalized epilepsy and a mild diffuse encephalopathy. No EEG seizures were seen during this recording. DATA: Diagnostic tests reviewed for today's visit: Most recent labs and imaging results. Impression/Recommendatio ns 34 year old female with past medical history significant for Myasthenia Gravis, migraines, Epilepsy, and generalized anxiety disorder who presents as transfer from [facility] with complaint of breakthrough seizure/status epilepticus. Per [...] diazepam, therefore EMS called. In ED at [place], patient reportedly returned to baseline but then began to seize again, prompting ativan administration and intubation for airway protection. CT brain negative. Labs, UA unremarkable. No reported trauma. Per patient's mother, compliant with meds, no missed doses. Patient subsequently transferred here for further management of seizures. Hospital Course: 10/08/2024- No seizures overnight, remains stable post extubation, no acute issues overnight. Transferred to [facility] Seizure Neuro checks q4h, tele [...] ladders, or step stools NO Swimming or tu (more content not included)... Normal [facility] Magnesium SerPl-mCncon 10-09 Magnesium [Mass/Vol] 1.8 mg/dL Normal 1.7-2.3 [facility] Comment on above: Order Comment: Speci men Type: BLOOD SPECIMEN Ordering Facility: [facility] Address: [address] [place] [address] Performed By: #### 2 4321-2, 2776-05, #### [facility] CLIA [id number] [address] [place] [address] [place] Phosphate SerPl-mCncon 10-09 Phosphate [Mass/Vol] 2.8 mg/dL Normal 2.7-4.8 [facility] Comment on above: Order Comment: Speci men Type: BLOOD SPECIMEN Ordering Facility: [facility] Address: [address] [place] [address] Performed By: #### 2 4321-2, 27710-31, #### [facility] CLIA [id number] [address] [place] [address] [place] THERAPY NTon 10-09-2024 THERAPY NT HNO ID: [id number] Author: WALLACE SEGOVIA CCC-STRIP DEBURRER Service: Speech/Swallow Author Type: Speech Language Pathologist Type: Therapy (PT/OT/Speech/Resp) Filed: 10/09/2024 16:00 Note Text: Speech Therapy Clinical Swallow Evaluation SERVICE DATE: 10/09/2024 SERVICE TIME: 1530 to 1545 ROOM: [place] [address] IMPRESSION Functional oropharyngeal phases of swallowing: without [...] Dysphagia, unspecified TREATMENT INTERVENTIONS Clinical Swallow Evaluation (06873) Skilled Treatment Time (minutes): 15 $ Clinical Swallow Evaluation (77607) Billed Units: 1 unit TRAINING AND EDUCATION [...] visit: Dietary Consistencies, Swallowing Strategies SIGNATURE: Wallace Segovia CCC-STRIP DEBURRER PATIENT NAME: Doug Flanagan DATE: October 09, 2024 TIME: 3:54 PM Normal [facility] THERAPY NT HNO ID: [id number] Author: MARI RODRÍGUEZ, PT Service: Physical Therapy Author Type: Physical Therapist Type: Therapy (PT/OT/Speech/Resp) Filed: 10/09/2024 15:29 Note Text: Physical Therapy Evaluation Summary SERVICE DATE: 10/09/2024 SERVICE TIME: 4464 to 4708 ROOM: [id number] PT 6 Clicks Score: 20 DISCHARGE RECOMMENDATIONS [...] Skilled Treatment Time (minutes): 15 $ Evaluation-Moderate (70222) Billed Units: 1 unit TRAINING AND EDUCATION [...] Discontinued: Goals met Treatment Interventions: Education SIGNATURE: Mari Rodríguez, PT PATIENT NAME: Doug Flanagan DATE: October 09, 2024 TIME: 3:29 PM Normal [facility] Basic metabolic 2000 panelon 10-08-2024 Anion gap [Moles/Vol] 9 mmol/L Normal 8-15 [facility] Comment on above: Order Comment: Speci men Type: BLOOD SPECIMEN Ordering Facility: [facility] Address: [address] [place] [address] Performed By: #### 5 7021-8 #### [facility] CLIA [id number] [address] [place] [address] [place] Calcium [Mass/Vol] 8.3 mg/dL Low 8.5-10.2 [facility] Comment on above: Order Comment: Speci men Type: BLOOD SPECIMEN Ordering Facility: [facility] Address: [address] [place] [address] Performed By: #### 5 7021-8 #### [facility] CLIA [id number] [address] [place] Chloride [Moles/Vol] 112 mmol/L High 98-107 [facility] Comment on above: Order Comment: Speci men Type: BLOOD SPECIMEN Ordering Facility: [facility] Address: [address] [place] [address] Performed By: #### 5 7021-8 #### [facility] CLIA [id number] [address] [place] CO2 [Moles/Vol] 21 mmol/L Low 22-30 [facility] Comment on above: Order Comment: Speci men Type: BLOOD SPECIMEN Ordering Facility: [facility] Address: [address] [place] [address] Performed By: #### 5 7021-8 #### [facility] CLIA [id number] [address] [place] Creatinine [Mass/Vol] 0.65 mg/dL Normal 0.58-0.96 [facility] Comment on above: Order Comment: Speci men Type: BLOOD SPECIMEN Ordering Facility: [facility] Address: [address] [place] [address] Performed By: #### 5 7021-8 #### [facility] CLIA [id number] [address] [place] Creatinine and Glomerular filtration rate.predicted panel (S/P/Bld) 117 mL/min/1.73m??? Normal >=60 [facility] Comment on above: Order Comment: Speci men Type: BLOOD SPECIMEN Ordering Facility: [facility] Address: [address] [place] [address] Result Comment: Mary mated Glomerular Filtration Rate (eGFR) is calculated using the 2020 CKD-EPI creatinine equation. This equation utilizes serum creatinine, sex, and age as parameters. The creatinine assay has traceable calibration to isotope dilution-mass spectrometry. Refer to KDIGO guidelines for clinical interpretation. In patients with unstable renal function, e.g. those with acute kidney injury, the eGFR may not accurately reflect actual GFR. Performed By: #### 5 7021-8 #### [facility] CLIA [id number] [address] [place] [address] [place] Glucose [Mass/Vol] 80 mg/dL Normal 74-99 [facility] Comment on above: Order Comment: Specvishal pickens Type: BLOOD SPECIMEN Ordering Facility: [facility] Address: [address] [place] [address] Result Comment: The [place] Diabetes Association (ADA) provides guidance for cutoff [...] Standards of Medical Care in Diabetes 2016, [place] Diabetes Association. Diabetes Care. 2016.39(Suppl 1). Performed By: #### 5 7021-8 #### [facility] CLIA [id number] [address] [place] [address] [place] Potassium [Moles/Vol] 3.8 mmol/L Normal 3.7-5.1 [facility] Comment on above: Order Comment: Juan Jose pickens Type: BLOOD SPECIMEN Ordering Facility: [facility] Address: [address] [place] [id number] Performed By: #### 5 7021-8 #### [facility] CLIA [id number] [address] [place] [address] [place] Sodium [Moles/Vol] 142 mmol/L Normal 136-144 [facility] Comment on above: Order Comment: Speci men Type: BLOOD SPECIMEN Ordering Facility: [facility] Address: [address] [place] [address] Performed By: #### 5 7021-8 #### [facility] CLIA [id number] [address] OF [facility] Urea nitrogen [Mass/Vol] 6 mg/dL Low 7-21 [facility] Comment on above: Order Comment: Speci men Type: BLOOD SPECIMEN Ordering Facility: [facility] Address: [address] [place] [address] Performed By: #### 5 7021-8 #### [facility] CLIA [id number] [address] OF [facility] CBC panel Auto (Bld)on 10-08 Erythrocyte distribution width (RBC) [Ratio] 13.0 % Normal 11.5-15.0 [facility] Comment on above: Order Comment: Speci men Type: BLOOD SPECIMEN Ordering Facility: [facility] Address: [address] [place] [address] Performed By: #### 5 8410-2 #### [facility] CLIA [id number] [address] OF [facility] Hematocrit (Bld) [Volume fraction] 36.4 % Normal 36.0-46.0 [facility] Comment on above: Order Comment: Speci men Type: BLOOD SPECIMEN Ordering Facility: [facility] Address: [address] [place] [address] Performed By: #### 5 8410-2 #### [facility] CLIA [id number] [address] [place] Hemoglobin (Bld) [Mass/Vol] 11.6 g/dL Normal 11.5-15.5 [facility] Comment on above: Order Comment: Speci men Type: BLOOD SPECIMEN Ordering Facility: [facility] Address: [address] [place] [address] Performed By: #### 5 8410-2 #### [facility] CLIA [id number] [address] MCH (RBC) [Entitic mass] 29.4 pg Normal 26.0-34.0 [facility] Comment on above: Order Comment: Speci men Type: BLOOD SPECIMEN Ordering Facility: [facility] Address: [address] [place] [address] Performed By: #### 5 8410-2 #### [facility] CLIA [id number] [address] MCHC (RBC) [Mass/Vol] 31.9 g/dL Normal 30.5-36.0 [facility] Comment on above: Order Comment: Speci men Type: BLOOD SPECIMEN Ordering Facility: [facility] Address: [address] [place] [address] Performed By: #### 5 8410-2 #### [facility] CLIA [id number] [address] MCV (RBC) [Entitic vol] 92.4 fL Normal 80.0-100.0 [facility] Comment on above: Order Comment: Speci men Type: BLOOD SPECIMEN Ordering Facility: [facility] Address: [address] [place] [address] Performed By: #### 5 8410-2 #### [facility] CLIA [id number] [address] Nucleated RBC (Bld) [#/Vol] 10*3/uL Normal <0.01 [facility] Comment on above: Order Comment: Speci men Type: BLOOD SPECIMEN Ordering Facility: [facility] Address: [address] [place] [address] Performed By: #### 5 8410-2 #### [facility] CLIA [id number] [address] Platelet mean volume (Bld) [Entitic vol] 9.8 fL Normal 9.0-12.7 [facility] Comment on above: Order Comment: Speci men Type: BLOOD SPECIMEN Ordering Facility: [facility] Address: [address] [place] [address] Performed By: #### 5 8410-2 #### [facility] CLIA [id number] [address] Platelets (Bld) [#/Vol] 216 10*3/uL Normal 150-400 [facility] Comment on above: Order Comment: Speci men Type: BLOOD SPECIMEN Ordering Facility: [facility] Address: [address] [place] [address] Performed By: #### 5 8410-2 #### [facility] CLIA [id number] [address] OF [facility] RBC (Bld) [#/Vol] 3.94 10*6/uL Normal 3.90-5.20 [facility] Comment on above: Order Comment: Speci men Type: BLOOD SPECIMEN Ordering Facility: [facility] Address: [address] [place] [address] Performed By: #### 5 8410-2 #### [facility] CLIA [id number] [address] WBC (Bld) [#/Vol] 9.43 10*3/uL Normal 3.70-11.00 [facility] Comment on above: Order Comment: Speci men Type: BLOOD SPECIMEN Ordering Facility: [facility] Address: [address] [place] [address] Performed By: #### 5 8410-2 #### [facility] CLIA [id number] [address] Magnesium SerPl-mCncon 10-08 Magnesium [Mass/Vol] 1.8 mg/dL Normal 1.7-2.3 [facility] Comment on above: Order Comment: Speci men Type: BLOOD SPECIMEN Ordering Facility: [facility] Address: [address] [place] [address] Performed By: #### 5 7021-8 #### [facility] CLIA [id number] [address] NURSING PROGon 10-08-2024 NURSING PROG HNO ID: [id number] Author: TYRELL ALEJANDRO, RN Service: Nursing Author Type: Registered Nurse Type: Nursing Progress Note Filed: 10/08/2024 15:52 Note Text: Patient given 1- soap reuben enema. Patient felt nauseous after 1 and would like to wait on the 2nd. Minimal output from enema.GI doctor informed of situation. Normal [facility] NUTRITIONon 10-08-2024 NUTRITION HNO ID: [id number] Author: ATIF CHOI RD Service: Nutrition Therapy Author Type: [...] to pureed per pt request (and/or per STRIP DEBURRER recommendations) Supplements: Ensure Clear (needs low Mag/K and no soy option) Refer to: Nutrition Therapy for outpatient RD visit Vitamins and Minerals: Multivitamin without minerals Monitor and Evaluation: Meet greater than 75% of estimated needs, Monitor bowel function, Monitor labs, I/Os, vital signs, weight Discharge Recommendations: Diet, Oral Supplements, Outpatient Nutrition Therapy appointment Diet: as tolerated/per STRIP DEBURRER Oral Supplements: high protein, high calorie item [...] constipation, abdominal pain, bloating. She mainly eats soft/gjag-pk-jyuvgv foods. She states she eats baby food, [...] 49.9 kg (110 lb) Dosing Weight Type: [place] body weight Estimated kilocalorie needs: 2712-5760 Calorie Calculation Method: 25-30 kcals/kg Estimated protein [...] 10/08/24 1106 Anthropometrics: Height: 157.5 cm (5' 2) Weight: 74.1 kg (163 lb 5.8 oz) [...] oz) 08/18/2024 73.3 kg (161 lb) - [facility] 07/06/2024 72.9 kg (160 lb) 04/12/2024 73.5 [...] 2 units Time Spent (mins): 30 SIGNATURE: Atif Choi RD PATIENT NAME: Doug Flanagan DATE: October 08, 2024 TIME: 10:33 AM Normal [facility] Phosphate SerPl-mCncon 06-08 -2025 Phosphate [Mass/Vol] 2.9 mg/dL Normal 2.7-4.8 [facility] Comment on above: Order Comment: Marcelai nelia Type: BLOOD SPECIMEN Ordering Facility: [facility] Address: [address] [place] [address] Performed By: #### 5 7021-8 #### [facility] CLIA [id number] [address] [place] [address] [place] TSH W/REFLEX FT4on TSH Qn 1.300 m[IU]/L Normal 0.270-4.20 0 [facility] Comment on above: Order Comment: Speci men Type: BLOOD SPECIMEN Ordering Facility: [facility] Address: [address] [place] [address] Result Comment: If t he patient is , TSH reference range varies by gestational period: First Trimester (weeks 9-12): 0.180-2.990 mIU/L Second Trimester: 0.110-3.980 mIU/L Third Trimester: 0.480-4.710 mIU/L Kirt Fierro et al. A Practical Approach for the Verifications and Determination of Site- and Trimester-Specific Reference Intervals for Thyroid Function tests in . Thyroid, 2019:29:3:412-420. Richie Hannon, et al. 2017 Guidelines of the [place] Thyroid Association for the Diagnosis and Management of Thyroid Disease during and the . Thyroid, 2017:27:3:315-389. Performed By: #### 5 8410-2 #### [facility] CLIA [id number] [address] [place] [address] [place] Bacteria Spec Resp Culton Bacteria identified Respiratory culture Nom (Unsp spec) CULTURE, RESPIRATORY: Moderate Normal respiratory mary present ORGANISM ID: 1 Rare Staphylococcus aureus Insignificant colony count. No further workup. GRAM STAIN: Few Mixed oral mary Few Polymorphonuclear leukocytes Abnormal [facility] Comment on above: Performed By: #### 2 4321-2, 2777-1, 79632-6 #### [facility] CLIA [id number] [address] [place] [address] [place] Basic metabolic 2000 panelon 10-07-2024 Anion gap [Moles/Vol] 11 mmol/L Normal 8-15 [facility] Comment on above: Order Comment: Speci men Type: BLOOD SPECIMEN Ordering Facility: [facility] Address: [address] [place] [address] Performed By: #### 2 4321-2, 2776-05, #### [facility] CLIA [id number] [address] [place] [address] [place] Calcium [Mass/Vol] 8.8 mg/dL Normal 8.5-10.2 [facility] Comment on above: Order Comment: Speci men Type: BLOOD SPECIMEN Ordering Facility: [facility] Address: [address] [place] [address] Performed By: #### 2 4321-2, 2776-05, #### [facility] CLIA [id number] [address] [place] Chloride [Moles/Vol] 110 mmol/L High 98-107 [facility] Comment on above: Order Comment: Speci men Type: BLOOD SPECIMEN Ordering Facility: [facility] Address: [address] [place] [address] Performed By: #### 2 4321-2, 2776-05, #### [facility] CLIA [id number] [address] [place] [address] [place] CO2 [Moles/Vol] 22 mmol/L Normal 22-30 [facility] Comment on above: Order Comment: Speci men Type: BLOOD SPECIMEN Ordering Facility: [facility] Address: [address] [place] [address] Performed By: #### 2 4321-2, 2776-05, #### [facility] CLIA [id number] [address] [place] [address] [place] Creatinine [Mass/Vol] 0.57 mg/dL Low 0.58-0.96 [facility] Comment on above: Order Comment: Speci men Type: BLOOD SPECIMEN Ordering Facility: [facility] Address: [address] [place] [address] Performed By: #### 2 4321-2, 2777-1, #### [facility] CLIA [id number] [address] [place] Creatinine and Glomerular filtration rate.predicted panel (S/P/Bld) 121 mL/min/1.73m??? Normal >=60 [facility] Comment on above: Order Comment: Juan Jose pickens Type: BLOOD SPECIMEN Ordering Facility: [facility] Address: [address] [place] [address] Result Comment: Mary mated Glomerular Filtration Rate (eGFR) is calculated using the 2020 CKD-EPI creatinine equation. This equation utilizes serum creatinine, sex, and age as parameters. The creatinine assay has traceable calibration to isotope dilution-mass spectrometry. Refer to KDIGO guidelines for clinical interpretation. In patients with unstable renal function, e.g. those with acute kidney injury, the eGFR may not accurately reflect actual GFR. Performed By: #### 2 4321-2, 2777-1, #### [facility] CLIA [id number] [address] [place] [address] [place] Glucose [Mass/Vol] 96 mg/dL Normal 74-99 [facility] Comment on above: Order Comment: Juan Jose pickens Type: BLOOD SPECIMEN Ordering Facility: [facility] Address: [address] [place] [address] Result Comment: The [place] Diabetes Association (ADA) provides guidance for cutoff [...] Standards of Medical Care in Diabetes 2016, [place] Diabetes Association. Diabetes Care. 2016.39(Suppl 1). Performed By: #### 2 4321-2, 2776-05, #### [facility] CLIA [id number] [address] [place] Potassium [Moles/Vol] 3.3 mmol/L Low 3.7-5.1 [facility] Comment on above: Order Comment: Speci men Type: BLOOD SPECIMEN Ordering Facility: [facility] Address: [address] [place] [address] Performed By: #### 2 4321-2, 2776-05, #### [facility] CLIA [id number] [address] STATES OF [facility] Sodium [Moles/Vol] 143 mmol/L Normal 136-144 [facility] Comment on above: Order Comment: Speci men Type: BLOOD SPECIMEN Ordering Facility: [facility] Address: [address] [place] [address] Performed By: #### 2 4321-2, 2776-05, #### [facility] CLIA [id number] [address] STATES OF [facility] Urea nitrogen [Mass/Vol] 4 mg/dL Low 7-21 [facility] Comment on above: Order Comment: Speci men Type: BLOOD SPECIMEN Ordering Facility: [facility] Address: [address] [place] [address] Performed By: #### 2 4321-2, 2776-05, #### [facility] CLIA [id number] [address] OF [facility] CBC panel Auto (Bld)on 10-07 Erythrocyte distribution width (RBC) [Ratio] 13.2 % Normal 11.5-15.0 [facility] Comment on above: Order Comment: Speci men Type: BLOOD SPECIMEN Ordering Facility: [facility] Address: [address] [place] [address] Performed By: #### 5 8410-2 #### [facility] CLIA [id number] [address] [place] [address] [place] Hematocrit (Bld) [Volume fraction] 36.4 % Normal 36.0-46.0 [facility] Comment on above: Order Comment: Speci men Type: BLOOD SPECIMEN Ordering Facility: [facility] Address: [address] [place] [address] Performed By: #### 5 8410-2 #### [facility] CLIA [id number] [address] OF [facility] Hemoglobin (Bld) [Mass/Vol] 12.2 g/dL Normal 11.5-15.5 [facility] Comment on above: Order Comment: Speci men Type: BLOOD SPECIMEN Ordering Facility: [facility] Address: [address] [place] [address] Performed By: #### 5 8410-2 #### [facility] CLIA [id number] [address] OF [facility] MCH (RBC) [Entitic mass] 29.7 pg Normal 26.0-34.0 [facility] Comment on above: Order Comment: Speci men Type: BLOOD SPECIMEN Ordering Facility: [facility] Address: [address] [place] [address] Performed By: #### 5 8410-2 #### [facility] CLIA [id number] [address] MCHC (RBC) [Mass/Vol] 33.5 g/dL Normal 30.5-36.0 [facility] Comment on above: Order Comment: Speci men Type: BLOOD SPECIMEN Ordering Facility: [facility] Address: [address] [place] [address] Performed By: #### 5 8410-2 #### [facility] CLIA [id number] [address] [place] MCV (RBC) [Entitic vol] 88.6 fL Normal 80.0-100.0 [facility] Comment on above: Order Comment: Speci men Type: BLOOD SPECIMEN Ordering Facility: [facility] Address: [address] [place] [address] Performed By: #### 5 8410-2 #### [facility] CLIA [id number] [address] [place] Nucleated RBC (Bld) [#/Vol] 10*3/uL Normal <0.01 [facility] Comment on above: Order Comment: Speci men Type: BLOOD SPECIMEN Ordering Facility: [facility] Address: [address] [place] [address] Performed By: #### 5 8410-2 #### [facility] CLIA [id number] [address] [place] Platelet mean volume (Bld) [Entitic vol] 9.1 fL Normal 9.0-12.7 [facility] Comment on above: Order Comment: Speci men Type: BLOOD SPECIMEN Ordering Facility: [facility] Address: [address] [place] [address] Performed By: #### 5 8410-2 #### [facility] CLIA [id number] [address] Platelets (Bld) [#/Vol] 201 10*3/uL Normal 150-400 [facility] Comment on above: Order Comment: Speci men Type: BLOOD SPECIMEN Ordering Facility: [facility] Address: [address] [place] [address] Performed By: #### 5 8410-2 #### [facility] CLIA [id number] [address] [place] RBC (Bld) [#/Vol] 4.11 10*6/uL Normal 3.90-5.20 [facility] Comment on above: Order Comment: Speci men Type: BLOOD SPECIMEN Ordering Facility: [facility] Address: [address] [place] [address] Performed By: #### 5 8410-2 #### [facility] CLIA [id number] [address] [place] WBC (Bld) [#/Vol] 13.98 10*3/uL High 3.70-11.00 [facility] Comment on above: Order Comment: Speci men Type: BLOOD SPECIMEN Ordering Facility: [facility] Address: [address] [place] [address] Performed By: #### 5 8410-2 #### [facility] CLIA [id number] [address] OF [facility] ECG COMPLETEon 10-07-2024 ECG COMPLETE Ventricular Rate : 9 0 BPM Atrial Rate : 90 BPM P-R Interval : 178 ms QRS Duration : 84 ms Q-T Interval : 358 ms QTC Calculation(Bazett) : 437 ms Calculated P Belden : 53 degrees Calculated R Belden : 48 degrees Calculated T Belden : -23 degrees NORMAL SINUS RHYTHM T WAVE ABNORMALITY, CONSIDER INFERIOR ISCHEMIA T WAVE ABNORMALITY, CONSIDER ANTEROLATERAL ISCHEMIA ABNORMAL ECG WHEN COMPARED WITH ECG OF 17-Dec-2016 16:04, T WAVE INVERSION NOW EVIDENT IN INFERIOR LEADS T WAVE INVERSION NOW EVIDENT IN ANTEROLATERAL LEADS Confirmed by MD KINGSTON YASSAR ([id number]) on 10/09/2024 4:46:55 PM NAME : DOUG FLANAGAN PID : [id number] : 1990 Gender : Female Race : ORD : [id number] Procedure Date : Oct 07 2024 06:31:02 Edit Date : Oct 09 2024 16:46:57 Diagnosis: NORMAL SINUS RHYTHM T WAVE ABNORMALITY, CONSIDER INFERIOR ISCHEMIA T WAVE ABNORMALITY, CONSIDER ANTEROLATERAL ISCHEMIA ABNORMAL ECG WHEN COMPARED WITH ECG OF 17-Dec-2016 16:04, T WAVE INVERSION NOW EVIDENT IN INFERIOR LEADS T WAVE INVERSION NOW EVIDENT IN ANTEROLATERAL LEADS Confirmed by MD KINGSTON YASSAR ([id number]) on 10/09/2024 4:46:55 PM Test Reason : Check QT Location : 200 : [facility] 3208 Overread By : MD KINGSTON YASSAR Edited By : MD KINGSTON YASSAR Referred By : ANGELLA JONES Acquired by : DUSTIN DUFF [facility] Gas and Carbon monoxide pane l (BldV)on 10-07-2024 BASE DEFICIT, VENOUS -6 mmol/L Low -2-0 [facility] Comment on above: Order Comment: Speci men Type: VENOUS BLOOD SPECIMEN Ordering Facility: [facility] Address: [address] [place] [address] Performed By: #### 2 4344-4 #### [facility] CLIA [id number] [address] Body temperature 98.6 [degF] Normal [facility] Comment on above: Order Comment: Speci men Type: VENOUS BLOOD SPECIMEN Ordering Facility: [facility] Address: [address] [place] [address] Performed By: #### 2 4344-4 #### [facility] CLIA [id number] [address] Calcium.ionized (BldV) [Mass/Vol] 1.23 mmol/L Normal 1.08-1.30 [facility] Comment on above: Order Comment: Speci men Type: VENOUS BLOOD SPECIMEN Ordering Facility: [facility] Address: [address] [place] [address] Performed By: #### 2 4344-4 #### [facility] CLIA [id number] [address] Calcium.ionized adjusted to pH 7.4 (BldA) [Moles/Vol] 1.15 mmol/L Normal 1.08-1.30 [facility] Comment on above: Order Comment: Speci men Type: VENOUS BLOOD SPECIMEN Ordering Facility: [facility] Address: [address] [place] [address] Performed By: #### 2 4344-4 #### [facility] CLIA [id number] [address] Carboxyhemoglobin (BldV) [Mass fraction] 1.6 % Normal 0.0-2.0 [facility] Comment on above: Order Comment: Speci men Type: VENOUS BLOOD SPECIMEN Ordering Facility: [facility] Address: [address] [place] [address] Result Comment: Carb oxyhemoglobin Reference Range for Smokers: 2.0-8.0% Performed By: #### 2 4344-4 #### [facility] CLIA [id number] [address] Chloride [Moles/Vol] 108 mmol/L High 97-105 [facility] Comment on above: Order Comment: Speci men Type: VENOUS BLOOD SPECIMEN Ordering Facility: [facility] Address: [address] [place] [address] Performed By: #### 2 4344-4 #### [facility] CLIA [id number] [address] [place] CO2 (BldV) [Partial pressure] 45 mm[Hg] Normal 42-55 [facility] Comment on above: Order Comment: Speci men Type: VENOUS BLOOD SPECIMEN Ordering Facility: [facility] Address: [address] [place] [address] Performed By: #### 2 4344-4 #### [facility] CLIA [id number] [address] [place] FIO2 30 % Normal [facility] Comment on above: Order Comment: Speci men Type: VENOUS BLOOD SPECIMEN Ordering Facility: [facility] Address: [address] [place] [address] Performed By: #### 2 4344-4 #### [facility] CLIA [id number] [address] [place] Glucose [Mass/Vol] 106 mg/dL High 60-105 [facility] Comment on above: Order Comment: Speci men Type: VENOUS BLOOD SPECIMEN Ordering Facility: [facility] Address: [address] [place] [address] Performed By: #### 2 4344-4 #### [facility] CLIA [id number] [address] [place] HCO3 (Bld) [Moles/Vol] 21 mmol/L Low 24-28 [facility] Comment on above: Order Comment: Speci men Type: VENOUS BLOOD SPECIMEN Ordering Facility: [facility] Address: [facility] [place] [address] Performed By: #### 2 4344-4 #### [facility] CLIA [id number] [address] [place] Hematocrit (Bld) [Volume fraction] 39.0 % Normal 36.0-46.0 [facility] Comment on above: Order Comment: Speci men Type: VENOUS BLOOD SPECIMEN Ordering Facility: [facility] Address: [address] [place] [address] Performed By: #### 2 4344-4 #### [facility] CLIA [id number] [address] [place] Hemoglobin (Bld) [Mass/Vol] 12.7 g/dL Normal 11.5-15.5 [facility] Comment on above: Order Comment: Speci men Type: VENOUS BLOOD SPECIMEN Ordering Facility: [facility] Address: [address] [place] [address] Performed By: #### 2 4344-4 #### [facility] CLIA [id number] [address] [place] INHALED TIDAL VOLUME (ML) 320 Normal [facility] Comment on above: Order Comment: Speci men Type: VENOUS BLOOD SPECIMEN Ordering Facility: [facility] Address: [address] [place] [address] Performed By: #### 2 4344-4 #### [facility] CLIA [id number] [address] [place] [address] [place] Lactate [Moles/Vol] 1.4 mmol/L Normal 0.5-2.2 [facility] Comment on above: Order Comment: Speci men Type: VENOUS BLOOD SPECIMEN Ordering Facility: [facility] Address: [address] [place] [address] Performed By: #### 2 4344-4 #### [facility] CLIA [id number] [address] [place] Methemoglobin (Bld) [Mass fraction] 1.0 % Normal 0.0-1.5 [facility] Comment on above: Order Comment: Speci men Type: VENOUS BLOOD SPECIMEN Ordering Facility: [facility] Address: [address] [place] [address] Performed By: #### 2 4344-4 #### [facility] CLIA [id number] [address] [place] O2 THERAPY VENT=Ventilator Normal [facility] Comment on above: Order Comment: Speci men Type: VENOUS BLOOD SPECIMEN Ordering Facility: [facility] Address: [address] [place] [address] Performed By: #### 2 4344-4 #### [facility] CLIA [id number] [address] [place] Oxygen (BldV) [Partial pressure] 68 mm[Hg] High 35-45 [facility] Comment on above: Order Comment: Speci men Type: VENOUS BLOOD SPECIMEN Ordering Facility: [facility] Address: [address] [place] [address] Performed By: #### 2 4344-4 #### [facility] CLIA [id number] [address] [place] Oxygen saturation in Venous blood 92 % High 60-85 [facility] Comment on above: Order Comment: Speci men Type: VENOUS BLOOD SPECIMEN Ordering Facility: [facility] Address: [address] [place] [address] Performed By: #### 2 4344-4 #### [facility] CLIA [id number] [address] [place] Oxyhemoglobin (BldV) [Mass fraction] 89 % High 60-85 [facility] Comment on above: Order Comment: Speci men Type: VENOUS BLOOD SPECIMEN Ordering Facility: [facility] Address: [address] [place] [address] Performed By: #### 2 4344-4 #### [facility] CLIA [id number] [address] [place] PEEP/CPAP 5 cmH2O Normal [facility] Comment on above: Order Comment: Speci men Type: VENOUS BLOOD SPECIMEN Ordering Facility: [facility] Address: [address] [place] [address] Performed By: #### 2 4344-4 #### [facility] CLIA [id number] [address] [place] pH (BldV) 7.29 [pH] Low 7.32-7.42 [facility] Comment on above: Order Comment: Speci men Type: VENOUS BLOOD SPECIMEN Ordering Facility: [facility] Address: [address] [place] [address] Performed By: #### 2 4344-4 #### [facility] CLIA [id number] [address] Potassium [Moles/Vol] 3.7 mmol/L Normal 3.5-5.0 [facility] Comment on above: Order Comment: Speci men Type: VENOUS BLOOD SPECIMEN Ordering Facility: [facility] Address: [address] [place] [address] Performed By: #### 2 4344-4 #### [facility] CLIA [id number] [address] SET VENTILATOR RESPIRATORY RATE (BPM) 14 BPM Normal [facility] Comment on above: Order Comment: Speci men Type: VENOUS BLOOD SPECIMEN Ordering Facility: [facility] Address: [address] [place] [address] Performed By: #### 2 4344-4 #### [facility] CLIA [id number] [address] Sodium [Moles/Vol] 142 mmol/L Normal 136-144 [facility] Comment on above: Order Comment: Speci men Type: VENOUS BLOOD SPECIMEN Ordering Facility: [facility] Address: [address] [place] [address] Performed By: #### 2 4344-4 #### [facility] CLIA [id number] [address] HISTORY PHYSICALon HISTORY PHYSICAL HNO ID: [id number] Author: JOHAN LUJAN MD Service: Neurology ICU Author Type: Physician Type: H&P Filed: 10/07/2024 15:45 Note Text: SERVICE DATE: 10/07/2024 SERVICE TIME: 12:37 AM NEUROLOGICAL INTENSIVE CARE UNIT HISTORY AND PHYSICAL REASON FOR ADMISSION: Status Epilepticus Subjective HPI: Patient is a 34 year old female with past medical history significant for Myasthenia Gravis, migraines, Epilepsy, and generalized anxiety disorder who presents as transfer from [facility] with complaint of breakthrough seizure/status epilepticus. Per [...] diazepam, therefore EMS called. 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 Normal [facility] Magnesium SerPl-mCncon 10-07 Magnesium [Mass/Vol] 1.7 mg/dL Normal 1.7-2.3 [facility] Comment on above: Order Comment: Speci men Type: BLOOD SPECIMEN Ordering Facility: [facility] Address: [address] [place] [address] Performed By: #### 2 4321-2, 2777-1, 74187-8 #### [facility] CLIA [id number] [address] Phosphate SerPl-ncon 10-07 Phosphate [Mass/Vol] 3.2 mg/dL Normal 2.7-4.8 [facility] Comment on above: Order Comment: Speci nelia Type: BLOOD SPECIMEN Ordering Facility: [facility] Address: [address] [place] [address] Performed By: #### 2 4321-2, 2777-1, #### [facility] CLIA [id number] [address] [place] THERAPY NTon 10-07-2024 THERAPY NT HNO ID: [id number] Author: LESLY SANTOS, BETSEY Service: Respiratory Therapy Author Type: Registered Resp [...] 07, 2024 TIME: 9:02 AM PAGER/CONTACT #: Rainer [facility] THERAPY NT HNO ID: [id number] Author: LESLY SANTOS RRT Service: Respiratory Therapy Author Type: Registered Resp Therapist Type: Therapy (PT/OT/Speech/Resp) Filed: 10/07/2024 08:56 Note Text: 10/07/24 0845 Daily Spontaneous Breathing Trial (SBT) Per nursing, SAT passed Yes ALL Criteria Met for Successful Wean Screen $Yes, SBT performed per RT protocol Time SBT Started 0845 RESPIRATORY THERAPY PROGRESS NOTE SERVICE DATE: 10/07/2024 SERVICE TIME: SIGNATURE: Lesly Santos RRT PATIENT NAME: Doug Flanagan DATE: October 07, 2024 TIME: 8:55 AM PAGER/CONTACT #: Normal [facility] XR ABDOMEN 1V SUPINEon 10-07 XR ABDOMEN 1V SUPINE * * *Final Report* * * DATE [...] colon as described. No small bowel distention. Hosiery Mater: PSCChristine Transcribe Date/Time: Oct 07 2024 10:53A Dictated by : OLIVIA DALEY MD This examination was interpreted and the report reviewed and electronically signed by: OLIVIA DALEY MD on Oct 07 2024 10:54AM EST [id number] [facility] XR CHEST 1V FRONTAL PORTon 0 10-07-2024 XR CHEST 1V FRONTAL PORT * * *Final Report* * * DATE [...] tube by 1 cm for optimal positioning. Hosiery Mater: SELENA Transcribe Date/Time: Oct 07 2024 1:49A Dictated by : MOO LANDRY DO This examination was interpreted and the report reviewed and electronically signed by: MOO LANDRY DO on Oct 07 2024 1:51AM EST [id number] Normal [facility] 12 Lead EKGon 10-06-2024 12 Lead EKG [facility] [address] [place] [address] 12 Lead EKG 10/06/24 1437 MR#: [id number] Acct: [id number] Name: DOUG FLANAGAN Rep #: [id number] : 1990 34 From: Yoly Rand MD Attending Dr: Status: DEP ER Ordering Dr: Jaclyn Sagastume Date: 10/06/24 Location: ED Sex: F C Admitted: Test Reason : SEIZURE Blood Pressure : */* mmHG Vent. Rate : 116 BPM Atrial Rate : 116 BPM P-R Int : 170 ms QRS Dur : 78 ms QT Int : 316 ms P-R-T Axes : 42 1 63 degrees QTcB Int : 439 ms Sinus tachycardia Nonspecific ST and T wave abnormality Abnormal ECG Confirmed by SVITLANA SALGADO, PEREZ ([id number]), editorial project manager SALOME MENJIVAR ([id number]) on 10/09/2024 6:53:24 AM Referred By: Confirmed By: PEREZ RAND MD 10/09/24 0653 Date Yoly Rand MD CC: Dr. Leander Patel MD; Dr. Kaiden Rausch DO; BRANDON Orr Signed Normal [facility] ARTERIAL BLOOD GASESon 10-06 Base deficit (BldA) [Moles/Vol] -6 mmol/L Low -2-0 [facility] Comment on above: Order Comment: Speci men Type: BLOOD SPECIMEN Ordering Facility: [facility] Address: [address] [place] [address] Performed By: #### 2 4321-2, 2776-05, #### [facility] CLIA [id number] [address] [place] [address] STATES OF [facility] Body temperature 97.88 [degF] Normal [facility] Comment on above: Order Comment: Speci men Type: BLOOD SPECIMEN Ordering Facility: [facility] Address: [address] [place] [address] Performed By: #### 2 4321-2, 2776-05, #### [facility] CLIA [id number] [address] [place] [address] OF [facility] Calcium.ionized (BldV) [Mass/Vol] 1.19 mmol/L Normal 1.08-1.30 [facility] Comment on above: Order Comment: Speci men Type: BLOOD SPECIMEN Ordering Facility: [facility] Address: [address] [place] [address] Performed By: #### 2 4321-2, 2776-05, #### [facility] CLIA [id number] [address] [place] [address] OF [facility] Calcium.ionized adjusted to pH 7.4 (BldA) [Moles/Vol] 1.18 mmol/L Normal 1.08-1.30 [facility] Comment on above: Order Comment: Speci men Type: BLOOD SPECIMEN Ordering Facility: [facility] Address: [address] [place] [address] Performed By: #### 2 4321-2, 2776-05, #### [facility] CLIA [id number] [address] [place] Carboxyhemoglobin (BldA) [Mass fraction] 0.3 % Normal 0.0-2.0 [facility] Comment on above: Order Comment: Speci men Type: BLOOD SPECIMEN Ordering Facility: [facility] Address: [address] [place] [address] Result Comment: Carb oxyhemoglobin Reference Range for Smokers: 2.0-8.0% Performed By: #### 2 4321-2, 2776-05, #### [facility] CLIA [id number] [address] [place] [address] [place] Chloride [Moles/Vol] 113 mmol/L High 97-105 [facility] Comment on above: Order Comment: Speci men Type: BLOOD SPECIMEN Ordering Facility: [facility] Address: [address] [place] [address] Performed By: #### 2 4321-2, 2776-05, #### [facility] CLIA [id number] [address] [place] CO2 (Bld) [Partial pressure] 30 mm Hg Low 36-46 [facility] Comment on above: Order Comment: Speci men Type: BLOOD SPECIMEN Ordering Facility: [facility] Address: [address] [place] [address] Performed By: #### 2 4321-2, 2776-05, #### [facility] CLIA [id number] [address] [place] CO2 adjusted to patient's actual temperature (Bld) [Partial pressure] 30 mmHg Low 36-46 [facility] Comment on above: Order Comment: Speci men Type: BLOOD SPECIMEN Ordering Facility: [facility] Address: [address] [place] [address] Performed By: #### 2 4321-2, 2776-05, #### [facility] CLIA [id number] [address] [place] FIO2 35 % Normal [facility] Comment on above: Order Comment: Speci men Type: BLOOD SPECIMEN Ordering Facility: [facility] Address: [address] [place] [address] Performed By: #### 2 4321-2, 2776-05, #### [facility] CLIA [id number] [address] [place] Glucose [Mass/Vol] 132 mg/dL High 60-105 [facility] Comment on above: Order Comment: Speci men Type: BLOOD SPECIMEN Ordering Facility: [facility] Address: [address] [place] [address] Performed By: #### 2 4321-2, 2776-05, #### [facility] CLIA [id number] [address] [place] HCO3 (Bld) [Moles/Vol] 17 mmol/L Low 22-26 [facility] Comment on above: Order Comment: Speci men Type: BLOOD SPECIMEN Ordering Facility: [facility] Address: [address] [place] [address] Performed By: #### 2 4321-2, 2776-05, #### [facility] CLIA [id number] [address] [place] Hematocrit (Bld) [Volume fraction] 41.8 % Normal 36.0-46.0 [facility] Comment on above: Order Comment: Speci men Type: BLOOD SPECIMEN Ordering Facility: [facility] Address: [facility] [place] [address] Performed By: #### 2 4321-2, 2776-05, #### [facility] CLIA [id number] [address] [place] Hemoglobin (Bld) [Mass/Vol] 13.6 g/dL Normal 11.5-15.5 [facility] Comment on above: Order Comment: Speci men Type: BLOOD SPECIMEN Ordering Facility: [facility] Address: [address] [place] [address] Performed By: #### 2 4321-2, 2776-05, #### [facility] CLIA [id number] [address] [place] INHALED TIDAL VOLUME (ML) 450 Normal [facility] Comment on above: Order Comment: Speci men Type: BLOOD SPECIMEN Ordering Facility: [facility] Address: [address] [place] [address] Performed By: #### 2 4321-2, 2776-05, #### [facility] CLIA [id number] [address] [place] Lactate [Moles/Vol] 2.3 mmol/L High 0.5-2.2 [facility] Comment on above: Order Comment: Speci men Type: BLOOD SPECIMEN Ordering Facility: [facility] Address: [address] [place] [address] Performed By: #### 2 4321-2, 2776-05, #### [facility] CLIA [id number] [address] [place] Methemoglobin (Bld) [Mass fraction] 0.7 % Normal 0.0-1.5 [facility] Comment on above: Order Comment: Speci men Type: BLOOD SPECIMEN Ordering Facility: [facility] Address: [address] [place] [address] Performed By: #### 2 4321-2, 2776-05, #### [facility] CLIA [id number] [address] [place] O2 THERAPY VENT=Ventilator Normal [facility] Comment on above: Order Comment: Speci men Type: BLOOD SPECIMEN Ordering Facility: [facility] Address: [address] [place] [address] Performed By: #### 2 4321-2, 2776-05, #### [facility] CLIA [id number] [address] [place] Oxygen (Bld) [Partial pressure] 146 mm Hg High 85-95 [facility] Comment on above: Order Comment: Speci men Type: BLOOD SPECIMEN Ordering Facility: [facility] Address: [facility] [place] [address] Performed By: #### 2 4321-2, 2776-05, #### [facility] CLIA [id number] [address] Oxygen adjusted to patient's actual temperature (Bld) [Partial pressure] 144 mmHg High 85-95 [facility] Comment on above: Order Comment: Speci men Type: BLOOD SPECIMEN Ordering Facility: [facility] Address: [address] [place] [address] Performed By: #### 2 4321-2, 2776-05, #### [facility] CLIA [id number] [address] Oxyhemoglobin (BldA) [Mass fraction] 98 % Normal 95-98 [facility] Comment on above: Order Comment: Speci men Type: BLOOD SPECIMEN Ordering Facility: [facility] Address: [address] [place] [address] Performed By: #### 2 1-2, 2776-05, #### [facility] CLIA [id number] [address] [place] PEEP/CPAP 5 cmH2O Normal [facility] Comment on above: Order Comment: Speci men Type: BLOOD SPECIMEN Ordering Facility: [facility] Address: [address] [place] [address] Performed By: #### 2 4321-2, 2776-05, #### [facility] CLIA [id number] [address] [place] pH (Bld) 7.38 [pH] Normal 7.35-7.45 [facility] Comment on above: Order Comment: Speci men Type: BLOOD SPECIMEN Ordering Facility: [facility] Address: [address] [place] [address] Performed By: #### 2 4321-2, 2776-05, #### [facility] CLIA [id number] [address] pH adjusted to patient's actual temperature (Bld) 7.38 Normal 7.35-7.45 [facility] Comment on above: Order Comment: Speci men Type: BLOOD SPECIMEN Ordering Facility: [facility] Address: [address] [place] [address] Performed By: #### 2 4321-2, 2776-05, #### [facility] CLIA [id number] [address] PO2 / FIO2 RATIO 417 mmHg Normal >300 [facility] Comment on above: Order Comment: Speci men Type: BLOOD SPECIMEN Ordering Facility: [facility] Address: [address] [place] [address] Performed By: #### 2 4321-2, 2776-05, #### [facility] CLIA [id number] [address] Potassium [Moles/Vol] 3.2 mmol/L Low 3.5-5.0 [facility] Comment on above: Order Comment: Speci men Type: BLOOD SPECIMEN Ordering Facility: [facility] Address: [address] [place] [address] Performed By: #### 2 4321-2, 2776-05, #### [facility] CLIA [id number] [address] SET VENTILATOR RESPIRATORY RATE (BPM) 14 BPM Normal [facility] Comment on above: Order Comment: Speci men Type: BLOOD SPECIMEN Ordering Facility: [facility] Address: [address] [place] [address] Performed By: #### 2 4321-2, 2777-1, #### [facility] CLIA [id number] 1 [place] [id number] [place] Sodium [Moles/Vol] 140 mmol/L Normal 136-144 [facility] Comment on above: Order Comment: Speci men Type: BLOOD SPECIMEN Ordering Facility: [facility] Address: [facility] [place] [address] Performed By: #### 2 4321-2, 2777-1, #### [facility] CLIA [id number] 1 [place] [address] [place] Absolute lymphocyte countOrd ered By: Jaclyn Sagastume on 10-06-2024 Lymphocytes Auto (Unsp spec) [#/Vol] 1.27 10*3/uL 0.83-4.51 [facility] Absolute neutrophil countOrd ered By: Jaclyn Sagastume on 10-06-2024 Neutrophils (Bld) [#/Vol] 11.0 10*3/uL High 2.0-7.7 [facility] Amphetamine detection with 1 000 ng/mL as cutoffOrdered By: Kaiden Rausch on 10-06-2024 Amphetamines Screen method >1000 ng/mL Ql (U) Negative < 200 ng/mL [facility] Anion gap in Serum or Plasma Ordered By: Jaclyn Sagastume on 10-06-2024 Anion gap [Moles/Vol] 13 mmol/L 5-15 [facility] Assessment of wrist artery p atency prior to arterial punctureOrdered By: Kaiden Rausch on 10-06-2024 Arterial patency Wrist artery --pre arterial puncture Positive [facility] Automated lymphocyte count a s percentage of total leukocytesOrdered By: Jaclyn Sagastume on 10-06-2024 Lymphocytes/100 WBC Auto (Unsp spec) 9.8 % Low 19-41 [facility] BUN/creatinine ratioOrdered By: Jaclyn Sagastume on 10-06-2024 Urea nitrogen/Creatinine [Mass ratio] 10.5 mg/mg 10- [facility] Basic Metabolic Profile (BMP )on 10-06-2024 BUN/CRE 10.5 RATIO Normal 10- [facility] Comment on above: Performed By: #### L 501.080 #### [facility] [address] [place], [address] Calcium [Mass/Vol] 9.2 mg/dL Normal 7.6-11.0 [facility] Comment on above: Performed By: #### L 501.080 #### [facility] [address] [place], [address] Chloride [Moles/Vol] 110 mmol/L High 98-108 [facility] Comment on above: Performed By: #### L 501.080 #### [facility] [address] [place], [address] CO2 [Moles/Vol] 18.0 mmol/L Low 21.0-32.0 [facility] Comment on above: Performed By: #### L 501.080 #### [facility] [address] [place], [address] Creatinine [Mass/Vol] 0.68 mg/dL Low 0.70-1.20 [facility] Comment on above: Performed By: #### L 501.080 #### [facility] [address] [place], [address] ECRCL 102.45 ml/min Normal 50-250 [facility] Comment on above: Performed By: #### L 501.080 #### [facility] [address] [place], [address] GAP 13 Normal 5-15 [facility] Comment on above: Performed By: #### L 501.080 #### [facility] [address] [place], [address] GFR/1.73 sq M.predicted among non-blacks MDRD (S/P/Bld) [Vol rate/Area] 116 mL/min/{1.73_m2} Normal >60 [facility] Comment on above: Result Comment: mL/m in/1.73m2 CKD-EPI Creatinine Equation (2020) Performed By: #### L 501.080 #### [facility] [address] [place], [address] Glucose [Mass/Vol] 127 mg/dL High 70-99 [facility] Comment on above: Performed By: #### L 501.080 #### [facility] [address] [place], [address] Potassium [Moles/Vol] 3.4 mmol/L Normal 3.3-5.1 [facility] Comment on above: Performed By: #### L 501.080 #### [facility] [address] [place], [address] Sodium [Moles/Vol] 141 mmol/L Normal 133-145 [facility] Comment on above: Performed By: #### L 501.080 #### [facility] [address] [place], [address] Urea nitrogen [Mass/Vol] 7 mg/dL Normal 4-19 [facility] Comment on above: Performed By: #### L 501.080 #### [facility] [address] [place], [address] Basophil percentageOrdered B y: Jaclyn Sagastume on 10-06-2024 Basophils/100 WBC (Bld) 0.3 % 0-1 [facility] Bedside Glucoseon 10-06-2024 FINGERSTICK GLU 155 mg/dL High 74-106 [facility] Comment on above: Result Comment: RUBENS CARTER OF PATIENT CARE PER NURSING PROTOCOL Performed By: #### L 501.080 #### [facility] [address] [place], [address] Bilirubin Test strip Ql (U)O rdered By: Jaclyn Sagastume on 10-06-2024 Bilirubin Ql (U) Negative Negative [facility] Blood Gases by [facility] 025 MALIK TEST Positive Normal [facility] Comment on above: Performed By: #### L 0.0800 #### [facility] [address] [place], [address] Base excess Calc (Bld) [Moles/Vol] -8 mmol/L Low -2 to +2 [facility] Comment on above: Performed By: #### L 8999.0800 #### [facility] [address] [place], [address] Blood Gas Type ART Normal [facility] Comment on above: Performed By: #### L 0.0800 #### [facility] [address] [place], [address] CO2 [Moles/Vol] 20 mmol/L Normal [facility] Comment on above: Performed By: #### L 8999.0800 #### [facility] [address] [place], [address] FI02 40.0 Normal [facility] Comment on above: Performed By: #### L 0.0800 #### [facility] [address] [place], [address] HCO3 (Bld) [Moles/Vol] 18.4 mmol/L Low 22-26 [facility] Comment on above: Performed By: #### L 8999.0800 #### [facility] [address] [place], [address] Mode AC Normal [facility] Comment on above: Performed By: #### L 0.0800 #### [facility] [address] [place], [address] O2 Delivery Dev Adult Vent Normal [facility] Comment on above: Performed By: #### L 0.0800 #### [facility] [address] [place], [address] pCO2 35.4 mmHg Normal 35-45 [facility] Comment on above: Performed By: #### L 9000.0800 #### [facility] [address] [place], [address] PEEP 5 Normal [facility] Comment on above: Performed By: #### L 9000.0800 #### [facility] [address] [place], [address] pH (Bld) 7.32 [pH] Low 7.35-7.45 [facility] Comment on above: Performed By: #### L 9000.0800 #### [facility] [address] [place], [address] PO2 107 mmHG High 75-100 [facility] Comment on above: Performed By: #### L 9000.0800 #### [facility] [address] [place], [address] RR 14 Normal [facility] Comment on above: Performed By: #### L 9000.0800 #### [facility] [address] [place], [address] SITE R Radial Normal [facility] Comment on above: Performed By: #### L 9000.0800 #### [facility] [address] [place], [address] SO2 98 Normal 95-99 [facility] Comment on above: Performed By: #### L 9000.0800 #### [facility] [address] [place], [address] Vt 450.0 mL Normal [facility] Comment on above: Performed By: #### L 9000.0800 #### [facility] [address] [place], [address] Blood base excess determinat ionOrdered By: Kaiden Rausch on 10-06-2024 Base excess Calc (BldV) [Moles/Vol] -8 mmol/L Low -2-2 [facility] Blood bicarbonate measuremen tOrdered By: Kaiden Rausch on 10-06-2024 HCO3 (Bld) [Moles/Vol] 18.4 mmol/L Low 22-26 [facility] Brain/Head without Contrasto n 10-06-2024 Brain/Head without Contrast [facility] Imaging Services [address] [place], [place] [address] Brain/Head without Contrast MR#: [id number] Acct: [id number] Name: DOUG FLANAGAN Rep #: [id number] : 1990 F 34 From: Karen Ozuna PCP: Dr. Leander Patel MD Status: REG ER Study: Brain/Head without Contrast Date of Exam: 10/25 Exam# [id number] Ordering Dr: Jaclyn Sagastume PROCEDURE: BRAIN/HEAD WITHOUT CONTRAST 10/06/2024 REASON FOR EXAM: SEIZURE TECHNIQUE: Head CT without intravenous contrast. Coronal and Sagittal reconstruction series were provided. One or more dose reduction techniques were used (e.g., Automated exposure control, adjustment of the mA and/or kV according to patient size, use of iterative reconstruction technique. RADIATION DOSE SUMMARY: CTDlvol: 44.99 mGy DLP: 812.98 mGycm COMPARISON: Head CT of 10/29/2022. FINDINGS: Brain: Normal. No extra-axial fluid collection is noted. No orbital abnormality is seen. CSF Spaces: Normal Sinuses/Mastoids: Clear at visualized levels Bones: No fracture or other acute osseous change is seen CT/Brain/Head without Contrast IMPRESSION: No intracranial hemorrhage or other acute process is seen Reading Location: [address] CC: Dr. Leander Patel MD; [employer] [employer]: Signed Normal [facility] CBC W Auto Differential pane l (Bld)on 10-06-2024 Basophils (Bld) [#/Vol] 10*3/uL Normal <0.11 [facility] Comment on above: Order Comment: Speci men Type: BLOOD SPECIMEN Ordering Facility: [facility] Address: [address] [place] [address] Performed By: #### 5 7021-8 #### [facility] CLIA [id number] [address] Basophils/100 WBC (Bld) 0.1 % Normal [facility] Comment on above: Order Comment: Speci men Type: BLOOD SPECIMEN Ordering Facility: [facility] Address: [address] [place] [address] Performed By: #### 5 7021-8 #### [facility] CLIA [id number] [address] Differential cell count method Nom (Bld) Auto Normal [facility] Comment on above: Order Comment: Speci men Type: BLOOD SPECIMEN Ordering Facility: [facility] Address: [address] [place] [address] Performed By: #### 5 7021-8 #### [facility] CLIA [id number] [address] [place] Eosinophils (Bld) [#/Vol] 10*3/uL Normal <0.46 [facility] Comment on above: Order Comment: Speci men Type: BLOOD SPECIMEN Ordering Facility: [facility] Address: [address] [place] [address] Performed By: #### 5 7021-8 #### [facility] CLIA [id number] [address] Eosinophils/100 WBC (Bld) 0.0 % Normal [facility] Comment on above: Order Comment: Speci men Type: BLOOD SPECIMEN Ordering Facility: [facility] Address: [address] [place] [address] Performed By: #### 5 7021-8 #### [facility] CLIA [id number] [address] Erythrocyte distribution width (RBC) [Ratio] 12.8 % Normal 11.5-15.0 [facility] Comment on above: Order Comment: Speci men Type: BLOOD SPECIMEN Ordering Facility: [facility] Address: [address] [place] [address] Performed By: #### 5 7021-8 #### [facility] CLIA [id number] [address] [place] Hematocrit (Bld) [Volume fraction] 40.7 % Normal 36.0-46.0 [facility] Comment on above: Order Comment: Speci men Type: BLOOD SPECIMEN Ordering Facility: [facility] Address: [address] [place] [address] Performed By: #### 5 7021-8 #### [facility] CLIA [id number] [address] [place] Hemoglobin (Bld) [Mass/Vol] 13.1 g/dL Normal 11.5-15.5 [facility] Comment on above: Order Comment: Speci men Type: BLOOD SPECIMEN Ordering Facility: [facility] Address: [address] [place] [address] Performed By: #### 5 7021-8 #### [facility] CLIA [id number] [address] [place] Immature granulocytes (Bld) [#/Vol] 0.08 10*3/uL Normal <0.10 [facility] Comment on above: Order Comment: Speci men Type: BLOOD SPECIMEN Ordering Facility: [facility] Address: [address] [place] [address] Performed By: #### 5 7021-8 #### [facility] CLIA [id number] [address] [place] Immature granulocytes/100 WBC (Bld) 0.5 % Normal [facility] Comment on above: Order Comment: Speci men Type: BLOOD SPECIMEN Ordering Facility: [facility] Address: [address] [place] [address] Performed By: #### 5 7021-8 #### [facility] CLIA [id number] [address] Lymphocytes (Bld) [#/Vol] 0.55 10*3/uL Low 1.00-4.00 [facility] Comment on above: Order Comment: Speci men Type: BLOOD SPECIMEN Ordering Facility: [facility] Address: [address] [place] [address] Performed By: #### 5 7021-8 #### [facility] CLIA [id number] [address] Lymphocytes/100 WBC (Bld) 3.3 % Normal [facility] Comment on above: Order Comment: Speci men Type: BLOOD SPECIMEN Ordering Facility: [facility] Address: [address] [place] [address] Performed By: #### 5 7021-8 #### [facility] CLIA [id number] [address] STATES OF [facility] MCH (RBC) [Entitic mass] 29.4 pg Normal 26.0-34.0 [facility] Comment on above: Order Comment: Speci men Type: BLOOD SPECIMEN Ordering Facility: [facility] Address: [address] [place] [address] Performed By: #### 5 7021-8 #### [facility] CLIA [id number] [address] STATES OF [facility] MCHC (RBC) [Mass/Vol] 32.2 g/dL Normal 30.5-36.0 [facility] Comment on above: Order Comment: Speci men Type: BLOOD SPECIMEN Ordering Facility: [facility] Address: [address] [place] [address] Performed By: #### 5 7021-8 #### [facility] CLIA [id number] [address] MCV (RBC) [Entitic vol] 91.3 fL Normal 80.0-100.0 [facility] Comment on above: Order Comment: Speci men Type: BLOOD SPECIMEN Ordering Facility: [facility] Address: [address] [place] [address] Performed By: #### 5 7021-8 #### [facility] CLIA [id number] [address] [place] Monocytes (Bld) [#/Vol] 0.41 10*3/uL Normal <0.87 [facility] Comment on above: Order Comment: Speci men Type: BLOOD SPECIMEN Ordering Facility: [facility] Address: [address] [place] [address] Performed By: #### 5 7021-8 #### [facility] CLIA [id number] [address] [place] Monocytes/100 WBC (Bld) 2.5 % Normal [facility] Comment on above: Order Comment: Speci men Type: BLOOD SPECIMEN Ordering Facility: [facility] Address: [address] [place] [address] Performed By: #### 5 7021-8 #### [facility] CLIA [id number] [address] [place] Neutrophils (Bld) [#/Vol] 15.41 10*3/uL High 1.45-7.50 [facility] Comment on above: Order Comment: Speci men Type: BLOOD SPECIMEN Ordering Facility: [facility] Address: [address] [place] [address] Performed By: #### 5 7021-8 #### [facility] CLIA [id number] [address] [place] Neutrophils/100 WBC (Bld) 93.6 % Normal [facility] Comment on above: Order Comment: Speci men Type: BLOOD SPECIMEN Ordering Facility: [facility] Address: [address] [place] [address] Performed By: #### 5 7021-8 #### [facility] CLIA [id number] [address] [place] Nucleated RBC (Bld) [#/Vol] 10*3/uL Normal <0.01 [facility] Comment on above: Order Comment: Speci men Type: BLOOD SPECIMEN Ordering Facility: [facility] Address: [address] [place] [address] Performed By: #### 5 7021-8 #### [facility] CLIA [id number] [address] [place] Nucleated RBC/100 WBC (Bld) [Ratio] 0.0 /100 WBC Normal [facility] Comment on above: Order Comment: Speci men Type: BLOOD SPECIMEN Ordering Facility: [facility] Address: [address] [place] [address] Performed By: #### 5 7021-8 #### [facility] CLIA [id number] [address] [place] Platelet mean volume (Bld) [Entitic vol] 9.0 fL Normal 9.0-12.7 [facility] Comment on above: Order Comment: Speci men Type: BLOOD SPECIMEN Ordering Facility: [facility] Address: [address] [place] [address] Performed By: #### 5 7021-8 #### [facility] CLIA [id number] [address] [place] Platelets (Bld) [#/Vol] 225 10*3/uL Normal 150-400 [facility] Comment on above: Order Comment: Speci men Type: BLOOD SPECIMEN Ordering Facility: [facility] Address: [address] [place] [address] Performed By: #### 5 7021-8 #### [facility] CLIA [id number] [address] [place] RBC (Bld) [#/Vol] 4.46 10*6/uL Normal 3.90-5.20 [facility] Comment on above: Order Comment: Speci men Type: BLOOD SPECIMEN Ordering Facility: [facility] Address: [address] [place] [address] Performed By: #### 5 7021-8 #### [facility] CLIA [id number] [address] [place] WBC (Bld) [#/Vol] 16.47 10*3/uL High 3.70-11.00 [facility] Comment on above: Order Comment: Speci men Type: BLOOD SPECIMEN Ordering Facility: [facility] Address: [address] [place] [address] Performed By: #### 5 7021-8 #### [facility] CLIA [id number] [address] [place] [address] [place] CBC W/Diff, Automatedon 06-0 6-2024 Absolute Lymph 1.27 X10 3/uL Normal 0.83-4.51 [facility] Comment on above: Performed By: #### L 501.080 #### [facility] [address] [place], [address] Absolute Neut 11.0 X10 3/uL High 2.0-7.7 [facility] Comment on above: Performed By: #### L 501.080 #### [facility] [address] [place], [address] Basophils/100 WBC (Bld) 0.3 % Normal 0-1 [facility] Comment on above: Performed By: #### L 501.080 #### [facility] [address] [place], [address] Eosinophils/100 WBC (Bld) 0.4 % Normal 0-5 [facility] Comment on above: Performed By: #### L 501.080 #### [facility] [address] [place], [address] Erythrocyte distribution width (RBC) [Ratio] 13.1 % Normal 11.6-14.6 [facility] Comment on above: Performed By: #### L 501.080 #### [facility] [address] [place], [address] Hematocrit (Bld) [Volume fraction] 41.3 % Normal 37-47 [facility] Comment on above: Performed By: #### L 501.080 #### [facility] [address] [place], [address] Hemoglobin (Bld) [Mass/Vol] 14.0 g/dL Normal 12.0-15.0 [facility] Comment on above: Performed By: #### L 501.080 #### [facility] [address] [place], [address] IG% 0.400 Normal 0.0-0.9 [facility] Comment on above: Result Comment: IG% - Immature Granulocytes (promyelocytes, myelocytes and metamyelocytes) > 1% indicates that a LEFT SHIFT is Present. Performed By: #### L 501.080 #### [facility] [address] [place], [address] Lymphocytes/100 WBC (Bld) 9.8 % Low 19-41 [facility] Comment on above: Performed By: #### L 501.080 #### [facility] [address] [place], [address] MCH (RBC) [Entitic mass] 29.9 pg Normal 27.0-32.0 [facility] Comment on above: Performed By: #### L 501.080 #### [facility] [address] [place], [address] MCHC (RBC) [Mass/Vol] 33.9 g/dL Normal 32-36 [facility] Comment on above: Performed By: #### L 501.080 #### [facility] [address] [place], [address] MCV (RBC) [Entitic vol] 88.1 fL Normal 81-99 [facility] Comment on above: Performed By: #### L 501.080 #### [facility] [address] [place], [address] Monocytes/100 WBC (Bld) 4.2 % Normal 0-10 [facility] Comment on above: Performed By: #### L 501.080 #### [facility] [address] [place], [address] Neutrophils/100 WBC (Bld) 84.9 % High 47-70 [facility] Comment on above: Performed By: #### L 501.080 #### [facility] [address] [place], [address] Nucleated RBC (Bld) [#/Vol] 0 10*3/uL Normal 0-5 [facility] Comment on above: Performed By: #### L 501.080 #### [facility] [address] [place], [address] Platelet mean volume (Bld) [Entitic vol] 9.5 fL Normal 6.2-12.0 [facility] Comment on above: Performed By: #### L 501.080 #### [facility] [address] [place], [address] Platelets (Bld) [#/Vol] 247 10*3/uL Normal 150-450 [facility] Comment on above: Performed By: #### L 501.080 #### [facility] [address] [place], [address] RBC (Bld) [#/Vol] 4.69 10*6/uL Normal 4.2-5.4 [facility] Comment on above: Performed By: #### L 501.080 #### [facility] [address] [place], [address] RDW SD 42.1 fl Normal 35.1-43.9 [facility] Comment on above: Performed By: #### L 501.080 #### [facility] [address] [place], [address] WBC (Bld) [#/Vol] 12.9 10*3/uL High 4.4-11.0 [facility] Comment on above: Performed By: #### L 501.080 #### [facility] [place], [address] [facility] (CCT) -------- DOUG FLANAGAN ([id number]) 1990 F Date Time Provider Department 10/06/24 RIVKA RICHARDS During your visit today, we recorded the following information about you: Fritz Sung Medic 10/07/2024 3:30 AM Signed CRITICAL CARE TRANSPORT MEDICAL CONTROL CONSULT NOTE Patient Name: Doug Flanagan Service Date: October 06, 2024 Referring Facility: [facility] Accepting Facility: REASON FOR TRANSPORT: seizures REASON FOR CONSULT: sedation CCT MEDICAL CONTROL CONSULT SUMMARY: History, physical exam findings, and available background patient information from [facility] Transport Nurse were reviewed at the time of consult. Pertinent additional information was reviewed as follows: Epic Records In brief, Doug Flanagan is a 34 year old female with a history, known at time of consult, significant for depression, seizures, myasthenia gravis, TBI who presented to [facility] for evaluation of seizure activity. Per the ED patient self administered valium prior to seizure activity. Upon arrival to the ED patient was post ictal and intubated for airway protection. Patient to be transferred to [facility] for further care and neurological evaluation. PLAN: Multiple factors considered including: patient history/condition/trajec tory/stability, referring and receiving destinations, duration of transport time, medications and therapies available during transport, patient safety, as well as crew capabilities. Orders given for: Propofol titration Plan of care and orders confirmed and read back via telephone with [facility] Transport meat team member, Júnior Sung, Sand Technician SIGNATURE: Rivka Richards APRN.[facility] Acute Care Nurse Practitioner Critical Care [...] with intractable epilepsy (HCC*01/15/2014 04/20/2014 Generalized convulsive (more content not included)... Normal [place] CPK Total, Creatine Kinaseon 10-06-2024 CPK TOTAL 46 U/L Normal 24-195 [facility] Comment on above: Order Comment: Comme nts: DC when propofol is d/c'd Performed By: #### L 501.0520, L501.3623 #### [facility] [address] [place], [address] Calcium.ionized [Moles/Vol]o n 10-06-2024 Calcium.ionized (BldV) [Mass/Vol] 1.18 mmol/L Normal 1.08-1.30 [facility] Comment on above: Order Comment: Juan Jose pickens Type: BLOOD SPECIMEN Ordering Facility: [facility] Address: [address] [place] [address] Performed By: #### 1 995-0 #### [facility] CLIA [id number] [address] [place] [address] [place] Calcium.ionized adjusted to pH 7.4 (Bld) [Moles/Vol] 1.13 mmol/L Normal 1.08-1.30 [facility] Comment on above: Order Comment: Speci nelia Type: BLOOD SPECIMEN Ordering Facility: [facility] Address: [address] [place] [address] Performed By: #### 1 995-0 #### [facility] CLIA [id number] [address] [place] [address] [place] Carbon dioxide, total [Moles /volume] in Central venous bloodOrdered By: Jaclyn Sagastume on 10-06-2024 CO2 [Moles/Vol] 18.0 mmol/L Low 21.0-32.0 [facility] Chest 1 View (Portable)on Chest 1 View (Portable) [facility] Imaging Services [address] [place] [address] Chest 1 View (Portable) MR#: [id number] Acct: [id number] Name: DOUG FLANAGAN Rep #: [id number] : 1990 F 34 From: Micheal Feldman MD PCP: Dr. Leander Patel MD Status: REG ER Study: Chest 1 View (Portable) Date of Exam: 10/06/24 Exam# [id number] Ordering Dr: Aneglla Jones DO EXAM: XR Chest, 1 View CLINICAL INDICATION: INTUBATION TECHNIQUE: Frontal view of the chest. COMPARISON: No relevant prior studies available. FINDINGS: LUNGS AND PLEURAL SPACES: See below. HEART: Unremarkable. No cardiomegaly. MEDIASTINUM: Unremarkable. Normal mediastinal contour. BONES/JOINTS: Unremarkable. No acute fracture. TUBES, LINES AND DEVICES: Right-sided Mediport with the distal tip in the SVC. No pneumothorax. The endotracheal tube (ETT) is in satisfactory position. Enteric tube tip in the stomach. RAD/Chest 1 View (Portable) IMPRESSION: No acute cardiopulmonary process. Reading Location: [id number] CC: Dr. Leander Patel MD; Dr. Angella Jones DO Hosiery Mater: Signed Normal [facility] Chloride assayOrdered By: Roselia Sagastume on 10-06-2024 Chloride [Moles/Vol] 110 mmol/L High 98-108 [facility] Comprehensive metabolic 2000 panelon 10-06-2024 Albumin [Mass/Vol] 4.0 g/dL Normal 3.9-4.9 [facility] Comment on above: Order Comment: Juan Jose pickens Type: BLOOD SPECIMEN Ordering Facility: [facility] Address: [address] [place] [address] Performed By: #### 1 9123-9, 2777-, 40400-6 #### [facility] CLIA [id number] [address] [place] [address] [place] ALP [Catalytic activity/Vol] 88 U/L Normal 34-123 [facility] Comment on above: Order Comment: Juan Jose pickens Type: BLOOD SPECIMEN Ordering Facility: [facility] Address: [address] [place] [address] Performed By: #### 1 9123-9, 2777-, 32297-3 #### [facility] CLIA [id number] [address] [place] [address] [place] ALT With P-5'-P [Catalytic activity/Vol] 16 U/L Normal 7-38 [facility] Comment on above: Order Comment: Juan Jose pickens Type: BLOOD SPECIMEN Ordering Facility: [facility] Address: [address] [place] [address] Performed By: #### 1 9123-9, 2777-1, 16038-6 #### [facility] CLIA [id number] [address] [place] [address] [place] Anion gap [Moles/Vol] 15 mmol/L Normal 8-15 [facility] Comment on above: Order Comment: Speci men Type: BLOOD SPECIMEN Ordering Facility: [facility] Address: [address] [place] [address] Performed By: #### 1 9123-9, 2776-05, 02118-3 #### [facility] CLIA [id number] [address] [place] AST With P-5'-P [Catalytic activity/Vol] 18 U/L Normal 13-35 [facility] Comment on above: Order Comment: Speci men Type: BLOOD SPECIMEN Ordering Facility: [facility] Address: [address] [place] [address] Performed By: #### 1 9123-9, 2776-05, 47116-9 #### [facility] CLIA [id number] [address] [place] Bilirubin [Mass/Vol] 0.3 mg/dL Normal 0.2-1.3 [facility] Comment on above: Order Comment: Speci men Type: BLOOD SPECIMEN Ordering Facility: [facility] Address: [address] [place] [address] Performed By: #### 1 9123-9, 2776-05, 09535-2 #### [facility] CLIA [id number] [address] STATES OF [facility] Calcium [Mass/Vol] 8.6 mg/dL Normal 8.5-10.2 [facility] Comment on above: Order Comment: Speci men Type: BLOOD SPECIMEN Ordering Facility: [facility] Address: [address] [place] [address] Performed By: #### 1 9123-9, 2776-05, 58812-9 #### [facility] CLIA [id number] [address] [place] Chloride [Moles/Vol] 107 mmol/L Normal 98-107 [facility] Comment on above: Order Comment: Speci men Type: BLOOD SPECIMEN Ordering Facility: [facility] Address: [address] [place], [place] [address] Performed By: #### 1 9123-9, 2777, 25635-0 #### [facility] CLIA [id number] [address] CO2 [Moles/Vol] 17 mmol/L Low 22-30 [facility] Comment on above: Order Comment: Speci men Type: BLOOD SPECIMEN Ordering Facility: [facility] Address: [address] [place] [address] Performed By: #### 1 9123-9, 2776-05, 19706-0 #### [facility] CLIA [id number] [address] Creatinine [Mass/Vol] 0.59 mg/dL Normal 0.58-0.96 [facility] Comment on above: Order Comment: Speci men Type: BLOOD SPECIMEN Ordering Facility: [facility] Address: [address] [place] [address] Performed By: #### 1 9123-9, 27710-31, 15713-0 #### [facility] CLIA [id number] [address] Creatinine and Glomerular filtration rate.predicted panel (S/P/Bld) 120 mL/min/1.73m??? Normal >=60 [facility] Comment on above: Order Comment: Speci men Type: BLOOD SPECIMEN Ordering Facility: [facility] Address: [address] [place] [address] Result Comment: Mary mated Glomerular Filtration Rate (eGFR) is calculated using the 2020 CKD-EPI creatinine equation. This equation utilizes serum creatinine, sex, and age as parameters. The creatinine assay has traceable calibration to isotope dilution-mass spectrometry. Refer to KDIGO guidelines for clinical interpretation. In patients with unstable renal function, e.g. those with acute kidney injury, the eGFR may not accurately reflect actual GFR. Performed By: #### 1 9123-9, 2777-1, 72131-0 #### [facility] CLIA [id number] [address] [place] [address] [place] Glucose [Mass/Vol] 128 mg/dL High 74-99 [facility] Comment on above: Order Comment: Juan Jose pickens Type: BLOOD SPECIMEN Ordering Facility: [facility] Address: [address] [place] [address] Result Comment: The [place] Diabetes [employer] (ADA) provides guidance for cutoff [...] Standards of Medical Care in Diabetes 2016, [place]. Diabetes Care. 2016.39(Suppl 1). Performed By: #### 1 9123-9, 2777, 70345-0 #### [facility] CLIA [id number] [address] [place] [address] [place] Potassium [Moles/Vol] 3.5 mmol/L Low 3.7-5.1 [facility] Comment on above: Order Comment: Juan Jose pickens Type: BLOOD SPECIMEN Ordering Facility: [facility] Address: [address] [place] [address] Performed By: #### 1 9123-9, 2777, 42793-1 #### [facility] CLIA [id number] [address] [place] [address] [place] Protein [Mass/Vol] 6.4 g/dL Normal 6.3-8.0 [facility] Comment on above: Order Comment: Juan Jose pickens Type: BLOOD SPECIMEN Ordering Facility: [facility] Address: [address] [place] [address] Performed By: #### 1 9123-9, 2777-, 75650-8 #### [facility] CLIA [id number] [address] [place] [address] [place] Sodium [Moles/Vol] 139 mmol/L Normal 136-144 [facility] Comment on above: Order Comment: Speci men Type: BLOOD SPECIMEN Ordering Facility: [facility] Address: [address] [place] [address] Performed By: #### 1 9123-9, 2777-1, 98753-9 #### [facility] CLIA [id number] [address] [place] Urea nitrogen [Mass/Vol] 5 mg/dL Low 7-21 [facility] Comment on above: Order Comment: Speci men Type: BLOOD SPECIMEN Ordering Facility: [facility] Address: [address] [place] [address] Performed By: #### 1 9123-9, 2777-1, 39699-7 #### [facility] CLIA [id number] [address] [place] Emergency Department Summary on 10-06-2024 Emergency Department Summary [facility] Medical Records Department [address] [id number] Emergency Department Summary 10/06/24 MR#: [id number] Acct: [id number] Name: DOUG FLANAGAN Rep #: [id number] : 1990 34 From: Jaclyn TAYLOR PCP: Dr. Leander Patel MD Status:[facility] ER Location: ED Patient was seen and examined with physician cancer genetics assistant Renee All components of the history and physical confirmed and agreed. History of present illness and physical exam: Patient is a 34-year-old female past medical history of seizures, TBI, depression, myasthenia gravis who presented to the emergency department with concern for not acting normal after her seizure. According to the patient's mother at bedside she notes that she had a seizure earlier and since then she had not been acting her normal self. She seemed confused and postictal on the phone therefore her mother went to check on her. She states that she did take her diazepam nasal spray and they note that usually this works however this did not therefore they called EMS to have her brought here for further evaluation management. Mom reports that she is only answering one-word sentences and appears shaky. She states that she has been taking her medications as prescribed not missing doses. Mother noted that recently she has been talking a lot about a high school loved 1 that she used to date and he on this exact date. She states that she had a counseling appointment earlier today. Review of systems: Agreed with above Physical exam: Agree with above MDM Patient is a 34-year-old female who presents to the emergency department the chief complaint of seizure. On the differential diagnose includes Melamin to electrolyte abnormality, medication noncompliance, breakthrough seizures, increased stress. Once workup is obtained reviewed she will be reevaluated. Patient's CBC was reviewed and showed a white blood count of 12.9, hemoglobin 14, platelet count was noted be 247. Patient sodium normal 141, potassium at 3.4, creatinine was 0.68. Patient's TSH was 2.59 Free T4 and T3 were 0.90 and 3.2 respectively, drug screen negative, urinalysis did not show any evidence of infection and test was negative. Patient's chest x-ray reviewed by myself and by radiology showed no acute cardiopulmonary processes. Patient's CT head reviewed showed no acute intracranial hemorrhage or other acute processes. Patient EKG reviewed showed sinus tachycardia the rate of 160 bpm. Renee did speak with the patient independently and she was acting back to baseline and having normal conversation. Patient was given Ativan as she was feeling anxious. Patient's case was signed out to oncoming provider while the rest of her workup was pending. Final impression: Seizure History of TBI Disposition: Signed out to oncoming provider Supervising attending attestation: Kaiden MORA History of Present Illness Chief Complaint: Seizure Narrative Narrative: Patient presenting today due to concerns for a seizure that occurred at around noon today. She has a history of epilepsy and myasthenia gravis. She called her mom shortly after noon and said that she needed help. She seemed confused and postictal on the phone, her mom suspected that she likely had a seizure and came to evaluate her. Patient still was somewhat confused/postictal despite taking her diazepam nasal spray and mom reports that she usually is not postictal for more than 20 minutes and decided to call EMS. Mom reports that she is only answering in one-word sentences and appears shaky. She has been taking her medication as prescribed, she denies hitting her head or any trauma resulting from the seizure. She denies any recent illness, fevers, and chills. [facility] Medical History Encounter to establish care Chronic abdominal pain Chronic constipation Hx of peripheral vascular disease Normal echocardiogram ( 05/18/16) Anemia Migraine headache Injury of head and neck Seizures Difficulty swallowing Difficulty chewing Non-smoker Shortness of breath on exertion Leg cramps History of stress test Chest pain Myasthenia gravis Home Medications ???Medication ???Instructions ???Recorded ???Last Taken ???Type levonorgestrel (Mirena) 20 mcg intrauterine UD 10/14 Unknown History control diazepam 10 mg/spray (0.1 mL) 10 mg intranasal PRN PRN Seizures 08/08/22 Unknown History nasal spray (Valtoco) zonisamide 100 mg capsule 300 mg (3 x 100 mg) PO QPM 4 Unknown Rx seizures #90 caps escitalopram oxalate 10 mg tablet 10 mg PO QHS #30 tabs 07/06/24 Un known Rx (Lexapro) lamotrigine 250 mg tablet,extended 250 mg PO BID seizures #60 tabs 07/06/24 Unknown Rx release 24 h (more content not included)... Normal [facility] Eosinophil percentageOrdered By: Jaclyn Sagastume on 10-06-2024 Eosinophils/100 WBC (Bld) 0.4 % 0-5 [facility] Erythrocyte distribution wid th ratioOrdered By: Jaclyn Sagastume on 10-06-2024 Erythrocyte distribution width (RBC) [Ratio] 13.1 % 11.6-14.6 [facility] Erythrocyte distribution wid th standard deviationOrdered By: Jaclyn Sagastume on 10-06-2024 Erythrocyte distribution width (RBC) [Ratio] 42.1 fl 35.1-43.9 [facility] Free T3on 10-06-2024 Free T3 [Mass/Vol] 3.2 pg/mL Normal 2.18-3.98 [facility] Comment on above: Performed By: #### L 801.1541, L3300.4400 #### [facility] [address] [place], [address] Free D4Genknzh By: Kaiden ross on 10-06-2024 Free T3 [Mass/Vol] 3.2 pg/mL 2.18-3.98 [facility] Glomerular filtration rate ( GFR) estimation/1.73 sq m using serum, plasma, or whole bOrdered By: Jaclyn Sagastume on 10-06-2024 GFR/1.73 sq M.predicted among non-blacks MDRD (S/P/Bld) [Vol rate/Area] 116 mL/min/{1.73_m2} >60 [facility] Comment on above: mL/min/1.73m2 CKD-EP I Creatinine Equation (2020) [facility] deOrdered By: Kaiden Rausch on 10-06-2024 Glucose [Mass/Vol] 155 mg/dL High 74-106 [facility] Comment on above: MANAGEMENT OF PATIEN T CARE PER NURSING PROTOCOL Hematocrit Auto (Bld) [Volum e fraction]Ordered By: Jaclyn Sagastume on 10-06-2024 Hematocrit (Bld) [Volume fraction] 41.3 % 37-47 [facility] Hemoglobin measurementOrdere d By: Jaclyn Sagastume on 10-06-2024 Hemoglobin (Bld) [Mass/Vol] 14.0 g/dL 12.0-15.0 [facility] Immature granulocytes/100 WB C Auto (Bld)Ordered By: Jaclyn Sagastume on 10-06-2024 Immature granulocytes/100 WBC (Bld) 0.400 % 0.0-0.9 [facility] Comment on above: IG% - Immature Granu locytes (promyelocytes, myelocytes and metamyelocytes) > 1% indicates that a LEFT SHIFT is Present. Ketones Test strip Ql (U)Ord ered By: Jaclyn Sagastume on 10-06-2024 Ketones Ql (U) Negative Negative [facility] Lactic Acidon 10-06-2024 Lactate [Moles/Vol] 1.9 mmol/L Normal 0.0-2.0 [facility] Comment on above: Order Comment: Y Performed By: #### L 503.6002 #### [facility] [place], [address] Lactic acid measurementOrder ed By: Jaclyn Sagastume on 10-06-2024 Lactate [Moles/Vol] 1.9 mmol/L 0.0-2.0 [facility] MCV (mean corpuscular volume ) determinationOrdered By: Jaclyn Sagastume on 10-06-2024 MCV (RBC) [Entitic vol] 88.1 fL 81-99 [facility] Magnesium SerPl-mCncon 10-06 Magnesium [Mass/Vol] 1.7 mg/dL Normal 1.7-2.3 [facility] Comment on above: Order Comment: Speci men Type: BLOOD SPECIMEN Ordering Facility: [facility] Address: [address] [place] [address] Performed By: #### 1 9123-9, 2777-1, 42678-9 #### [facility] CLIA [id number] [address] STATES OF [facility] Mean corpuscular hemoglobin (MCH) determinationOrdered By: Jaclyn Sagastume on 10-06-2024 MCH (RBC) [Entitic mass] 29.9 pg 27.0-32.0 [facility] Mean corpuscular hemoglobin concentration (MCHC) determinationOrdered By: Jaclyn Sagastume on 10-06-2024 MCHC (RBC) [Mass/Vol] 33.9 g/dL 32-36 [facility] Mean platelet volume determi nationOrdered By: Jaclyn Sagastume on 10-06-2024 Platelet mean volume (Bld) [Entitic vol] 9.5 fL 6.2-12.0 [facility] Measurement, pHOrdered By: Zulma Rausch on 10-06-2024 pH (Unsp spec) 7.32 [pH] Low 7.35-7.45 [facility] Microscopic analysis of urin e for red blood cells (RBC)Ordered By: Jaclyn Sagastume on 10-06-2024 Microscopic analysis of urine for red blood cells (RBC) 0 SEEN /hpf 0-5 [facility] Monocyte percentageOrdered B y: Jaclyn Sagastume on 10-06-2024 Monocytes/100 WBC (Bld) 4.2 % 0-10 [facility] Mucus LM Ql (Urine sed)Order ed By: Jaclyn Sagastume on 10-06-2024 Mucus Ql (Urine sed) 0 SEEN /hpf [facility] Neutrophil percentageOrdered By: Jaclyn Sagastume on 10-06-2024 Neutrophils/100 WBC (Bld) 84.9 % High 47-70 [facility] Nitrite Test strip Ql (U)Ord ered By: Jaclyn Sagastume on 10-06-2024 Nitrite Ql (U) Negative Negative [facility] No Panel InformationOrdered By: Kaiden Rausch on 10-06-2024 Bedside Blood Gas PEEP 5 [facility] Blood Gas Respiration Rate 14 [facility] Blood Gas Sample Site R Radial [facility] Blood Gas Specimen Type ART [facility] Blood Gas Tidal Volume 450.0 mL [facility] Blood Gas Vent Mode AC [facility] O[place] Delivery Device Adult Vent [facility] Urine Buprenorphine Qualitative Negative < 200 ng/mL [facility] Urine Oxycodone Screen Negative < 100 ng/mL [facility] Nucleated red blood cell per centageOrdered By: Jaclyn Sagastume on 10-06-2024 Nucleated RBC/100 WBC (Bld) [Ratio] 0 % 0-5 [facility] PT panel Coag (PPP)on 2024 INR Coag (PPP) [Relative time] 1.1 {INR} Normal 0.9-1.3 [facility] Comment on above: Order Comment: Speci men Type: BLOOD SPECIMEN Ordering Facility: [facility] Address: [address] [place] [address] Result Comment: Shantell min K Antagonist (VKA) Therapeutic Range: INR 2 to 3 (Target INR of 2.5) Note: For patients treated with VKA drugs, such as warfarin, the [place] [employer] 2012 Guideline recommends [...] Chest 2012, 141:7S-47S Lucian RA, et al. [facility] 2017, 70: 252-289 Performed By: #### 5 7021-8 #### [facility] CLIA [id number] [address] STATES OF [facility] PT Coag (PPP) [Time] 11.5 s Normal 9.7-13.0 [facility] Comment on above: Order Comment: Speci men Type: BLOOD SPECIMEN Ordering Facility: [facility] Address: [address] [place] [address] Performed By: #### 5 7021-8 #### [facility] CLIA [id number] [address] [place] Phosphate SerPl-mCncon 10-06 Phosphate [Mass/Vol] 2.4 mg/dL Low 2.7-4.8 [facility] Comment on above: Order Comment: Speci men Type: BLOOD SPECIMEN Ordering Facility: [facility] Address: [address] [place] [address] Performed By: #### 1 9123-9, 2777-1, 97544-6 #### [facility] CLIA [id number] [address] [place] Platelet countOrdered By: Roselia Sagastume on 10-06-2024 Platelets (Bld) [#/Vol] 247 10*3/uL 150-450 [facility] Potassium measurement (mass/ volume)Ordered By: Jaclyn Sagastume on 10-06-2024 Potassium (Unsp spec) [Mass/Vol] 3.4 mmol/L 3.3-5.1 [facility] ,Urineon 10-06-2024 Beta HCG ( test) Ql (U) Negative Normal [facility] Comment on above: Result Comment: Very dilute urine specimens, as indicated by a low specific gravity, may not contain public service representative levels of hCG. If is still suspected, a first morning urine specimen should be collected 48 hours later and tested. Performed By: #### L 801.1541, L3300.4400 #### [facility] [address] [place], [address] Protein Test strip Ql (U)Ord ered By: Jaclyn Sagastume on 10-06-2024 Protein Ql (U) Negative Negative [facility] Quantitative urine opiates m easurementOrdered By: Kaiden Rausch on 10-06-2024 Opiates Ql (U) Negative < 300 ng/mL [facility] RBC Auto (Bld) [#/Vol]Ordere d By: Jaclyn Sagastume on 10-06-2024 RBC (Bld) [#/Vol] 4.69 10*6/uL 4.2-5.4 [facility] STAPHYLOCOCCUS AUREUS AND MR SA SCREEN, PCR, NASALon 10-06-2024 S. aureus and MRSA panel CHRISTIANO+probe (Nose) Not detected Normal Not Detected [facility] Comment on above: Order Comment: Speci men Type: BLOOD SPECIMEN Ordering Facility: [facility] Address: [address] [place] [address] Performed By: #### 5 8410-2 #### [facility] CLIA [id number] [address] [place] [address] [place] Screening urine fentanyl karma surementOrdered By: Kaiden Rausch on 10-06-2024 fentaNYL Screen Ql (U) Negative [facility] Serum creatinine measurement (mass/volume)Ordered By: Jaclyn Sagastume on 10-06-2024 Creatinine [Mass/Vol] 0.68 mg/dL Low 0.70-1.20 [facility] Serum glucose measurement (m ass/volume)Ordered By: Jaclyn Sagastume on 10-06-2024 Glucose [Mass/Vol] 127 mg/dL High 70-99 [facility] Serum or plasma calcium traci urement (mass/volume)Ordered By: Jaclyn Sagastume on 10-06-2024 Calcium [Mass/Vol] 9.2 mg/dL 7.6-11.0 [facility] Serum or plasma creatine kin ase activityOrdered By: Angella Jones on 06-06-2025 CK [Catalytic activity/Vol] 46 U/L 24-195 [facility] Serum or plasma lamotrigine measurement (mass/volume)Ordered By: Jaclyn Sagastume on 10-06-2024 lamoTRIgine [Mass/Vol] 8.6 ug/mL 2.0-20.0 [facility] Comment on above: Detection Limit = 1. 0Performed at: [facility] [address] [id number] Director: Dakota Beal MD, Phone: [phone] Serum or plasma urea nitroge n measurement (mass/volume)Ordered By: Jaclyn Sagastume on 10-06-2024 Urea nitrogen [Mass/Vol] 7 mg/dL 4-19 [facility] Sodium levelOrdered By: Dharmesh Sagastume on 10-06-2024 Sodium [Moles/Vol] 141 mmol/L 133-145 [facility] Squamous epithelial cells de tection in urine sediment by light microscopyOrdered By: Jaclyn Sagastume on 10-06-2024 Epithelial cells.squamous LM Ql (Urine sed) 0-5 SEEN /hpf 5-10 [facility] T4 Free Directon 10-06-2024 T4 FREE DIRECT 0.90 ng/dL Normal 0.76-1.46 [facility] Comment on above: Performed By: #### L 801.1541, L3300.4400 #### [facility] [address] [place], [address] T4 freeOrdered By: Kaiden ross on 10-06-2024 Free T4 [Mass/Vol] 0.90 ng/dL 0.76-1.46 [facility] TSH DL <= 0.005 mIU/L QnOrde red By: Kaiden Rausch on 10-06-2024 TSH Qn 2.590 uIU/mL 0.300-4.20 0 [facility] Thyroid Stim Hormone (TSH)on 10-06-2024 TSH 2.590 uIU/mL Normal 0.300-4.20 0 [facility] Comment on above: Performed By: #### L 801.1541, L3300.4400 #### [facility] [address] [place], [address] Total carbon dioxide measure mentOrdered By: Kaiden Rausch on 10-06-2024 CO2 [Moles/Vol] 20 mmol/L [facility] Triglycerideson 10-06-2024 Triglyceride [Mass/Vol] 160 mg/dL Normal [facility] Comment on above: Order Comment: Comme nts: DC when propofol is d/c'd DC when propofol is d/c'd Result Comment: The drugs N-Acetylcysteine and Metamizole may falsely depress this assay. Normal range: <150 mg/dL Borderline High: 150-199 mg/dL High: 200-499 mg/dL Very High: >500 mg/dL Performed By: #### L 501.5000, L501.3620 #### [facility] [address] [place], [address] Triglycerides measurementOrd ered By: Angella Jones on 10-06-2024 Triglyceride [Mass/Vol] 160 mg/dL <199 [facility] Comment on above: The drugs N-Acetylcy steine and Metamizole may falsely depress this assay. Normal range: <150 mg/dLBorderline High: 150-199 mg/dLHigh: 200-499 mg/dLVery High: >500 mg/dL Urinalysis, Completeon 10-06 EPI,SQUAMOUS 0-5 SEEN Normal 5-10 [facility] Comment on above: Order Comment: NII CTOR TO SPECIFY Performed By: #### L 400.0001, L400.7600 #### [facility] [address] [place], [address] WBC 0-5 SEEN Normal 0-5 [facility] Comment on above: Order Comment: NII CTOR TO SPECIFY Performed By: #### L 400.0001, L400.7600 #### [facility] [address] [place], [address] BACTERIA 0 SEEN Normal None Seen [facility] Comment on above: Order Comment: NII CTOR TO SPECIFY Performed By: #### L 400.0001, L400.7600 #### [facility] [address] [place], [address] Mucus Ql (Urine sed) 0 SEEN Normal [facility] Comment on above: Order Comment: NII CTOR TO SPECIFY Performed By: #### L 400.0001, L400.7600 #### [facility] [address] [place], [address] RBC 0 SEEN Normal 0-5 [facility] Comment on above: Order Comment: NII CTOR TO SPECIFY Performed By: #### L 400.0001, L400.7600 #### [facility] [address] [place], [address] Urine Drug Screen (VISTA)on 10-06-2024 AMPHETAMINES Negative Normal <1000 ng/mL [facility] Comment on above: Performed By: #### L 801.1541, L3300.4400 #### [facility] [address] [place], [address] BARBITIURATES Negative Normal < 200 ng/mL [facility] Comment on above: Performed By: #### L 801.1541, L3300.4400 #### [facility] [address] [place], [address] BENZODIAZIPINE Negative Normal < 200 ng/mL [facility] Comment on above: Performed By: #### L 801.1541, L3300.4400 #### [facility] [address] [place], [address] BUP Ur Drug Scr Negative Normal < 200 ng/mL [facility] Comment on above: Performed By: #### L 801.1541, L3300.4400 #### [facility] [address] [place], [address] COCAINE Negative Normal < 300 ng/mL [facility] Comment on above: Performed By: #### L 801.1541, L3300.4400 #### [facility] [address] [place], [address] Fentanyl Negative Normal [facility] Comment on above: Performed By: #### L 801.1541, L3300.4400 #### [facility] [address] [place], [address] METHADONE Negative Normal < 300 ng/mL [facility] Comment on above: Performed By: #### L 801.1541, L3300.4400 #### [facility] [address] [place], [address] OPIATES Negative Normal < 300 ng/mL [facility] Comment on above: Performed By: #### L 801.1541, L3300.4400 #### [facility] [address] [place], [address] OXYCODONE Negative Normal < 100 ng/mL [facility] Comment on above: Performed By: #### L 801.1541, L3300.4400 #### [facility] [address] [place], [address] PCP Negative Normal < 25 ng/mL [facility] Comment on above: Performed By: #### L 801.1541, L3300.4400 #### [facility] [address] [place], [address] THC Negative Normal < 50 ng/mL [facility] Comment on above: Performed By: #### L 801.1541, L3300.4400 #### [facility] [address] [place], [address] Urine benzodiazepine levelOr dered By: Kaiden Rausch on 10-06-2024 Benzodiazepines Ql (U) Negative < 200 ng/mL [facility] Urine clarityOrdered By: Sreedhar Sagastume on 10-06-2024 Clarity (U) Clear Clear [facility] Urine cocaine levelOrdered B y: Kaiden Rausch on 10-06-2024 Cocaine Ql (U) Negative < 300 ng/mL [facility] Urine color determinationOrd ered By: Jaclyn Sagastume on 10-06-2024 Color (U) Straw Yellow [facility] Urine fiezd-8-ekadckvzrnznco abinol (THC) measurementOrdered By: Kaiden Rausch on 10-06-2024 Cannabinoids Screen Ql (U) Negative < 50 ng/mL [facility] Urine glucose detectionOrder ed By: Jaclyn Sagastume on 10-06-2024 Glucose Ql (U) Normal mg/dl Normal [facility] Urine leukocyte esterase det ection by dipstickOrdered By: Jaclyn Sagastume on 10-06-2024 Leukocyte esterase Test strip Ql (U) Negative Negative [facility] Urine pHOrdered By: Da Sagastume on 10-06-2024 pH (U) 6.5 [pH] 5.0 - 8.0 [facility] Urine phencyclidine (PCP) de tectionOrdered By: Kaiden Rausch on 10-06-2024 Phencyclidine Ql (U) Negative < 25 ng/mL [facility] Urine testOrdered By: Jaclyn Sagastume on 10-06-2024 HCG ( test) Ql (U) Negative [facility] Comment on above: Very dilute urine sp ecimens, as indicated by a low specificgravity, may not contain public service representative levels of hCG. If is still suspected, a first morning urinespecimen should be collected 48 hours later and tested. Urine sediment bacteria coun t by microscopy (number/high power field)Ordered By: Jaclyn Sagastume on 10-06-2024 Bacteria LM.HPF (Urine sed) [#/Area] 0 /[HPF] None Seen [facility] Urine specific gravity measu rementOrdered By: Jaclyn Sagastume on 10-06-2024 Specific gravity (U) [Rel density] 1.010 1.002-1.03 0 [facility] Urine urobilinogen measureme ntOrdered By: Jaclyn Sagastume on 10-06-2024 Urobilinogen Ql (U) Normal mg/dl Normal [facility] White blood cell (WBC) count Ordered By: Jaclyn Sagastume on 10-06-2024 WBC (Bld) [#/Vol] 12.9 10*3/uL High 4.4-11.0 [facility] White blood cell countOrdere d By: Jaclyn Sagastume on 10-06-2024 White blood cell count 0-5 SEEN /hpf 0-5 [facility] Zonisamide SerPl-mCncon 06-0 Zonisamide [Mass/Vol] 18.9 ug/mL Normal 10.0-40.0 [facility] Comment on above: Order Comment: Speci men Type: BLOOD SPECIMEN Ordering Facility: [facility] Address: [address] [place] [address] Result Comment: This test was developed, and its performance characteristics determined by the [facility] Department of Pathology and Laboratory Medicine. It has not been cleared or approved by the FDA. The [facility] Department of Pathology and Laboratory Medicine is regulated under CLIA as qualified to perform high-complexity testing. This test is used for clinical purposes. It should not be regarded as investigational or for research. Performed By: #### 5 7021-8 #### [facility] CLIA [id number] [address] [place] aPTT PPPon 10-06-2024 aPTT Coag (PPP) [Time] 24.3 s Normal 23.0-32.4 [facility] Comment on above: Order Comment: Speci nelia Type: BLOOD SPECIMEN Ordering Facility: [facility] Address: [address] [place] [address] Performed By: #### 5 7021-8 #### [facility] CLIA [id number] [address] OF [facility] lamoTRIgine SerPl-mCncon lamoTRIgine [Mass/Vol] 6.7 ug/mL Normal 1.0-13.0 [facility] Comment on above: Order Comment: Speci nelia Type: BLOOD SPECIMEN Ordering Facility: [facility] Address: [address] [place] [address] Result Comment: This test was developed, and its performance characteristics determined by the [facility] Department of Pathology and Laboratory Medicine. It has not been cleared or approved by the FDA. The [facility] Department of Pathology and Laboratory Medicine is regulated under CLIA as qualified to perform high-complexity testing. This test is used for clinical purposes. It should not be regarded as investigational or for research. Performed By: #### 5 7021-8 #### [facility] CLIA [id number] [address] [place] [id number] [place] [facility] Gastric Emptying Studyon Gastric Emptying Study [facility] Imaging Services [address] [place] [id number] Gastric Emptying Study MR#: [id number] Acct: [id number] Name: DOUG FLANAGAN Rep #: [id number] : 1990 F 34 From: Jhon Kendall MD PCP: Dr. Leander Patel MD Status: REG CLI Study: Gastric Emptying Study Date of Exam: 10/03/24 Exam# [id number] Ordering Dr: Katie Mayo PROCEDURE: GASTRIC EMPTYING [...] geometric mean was used to calculate a vjro-yuujpkns-zbewx. Medications taken in the past 24 hours [...] NORMAL RANGE FOR GASTRIC EMPTYING. Reading Location: [place] [address] CC: Dr. Leander Patel MD; [facility] Mater: Signed Normal [facility] Gastroenterology Visit Repor ton 09-14-2024 Gastroenterology Visit Report [facility] [address] [place] [address] OFFICE VISIT Date of Service: 09/14/24 MR#: [id number] Acct: [id number] Name: DOUG FLANAGAN Rep #: [id number] : 1990 Provider: BRANDON Dunaway Age/Sex: 34/F Location[email or web address] Status: Signed Intake Vital Signs 07/26/24 14:04 08/18/24 11:44 Height 5 ft 2 in 5 ft 2 in Intake Visit Reasons: 1 M FU Chief Complaint: constipation Allergies levetiracetam (From Keppra) Allergy (Verified 08/18/24 11:44) Other Penicillins Allergy (Verified 08/18/24 11:44) Rash phenytoin (From Dilantin) Allergy (Verified 08/18/24 11:44) PT UNSURE OF REACTION prochlorperazine (From Compazine) Allergy (Verified 08/18/24 11:44) Other shellfish derived Allergy (Verified 08/18/24 11:44) Other soy Adverse Reaction (Verified 08/18/24 11:44) NEEDS FOLLOW-UP Medications ???Medication ???Instructions ???Recorded ???Confirmed ???Type levonorgestrel (Mirena) 20 mcg intrauterine UD 10/1408/16/24 History control diazepam 10 mg/spray (0.1 mL) 10 mg intranasal PRN PRN Seizures 08/08/22 08/16/24 History nasal spray (Valtoco) zonisamide 100 mg capsule 300 mg (3 x 100 mg) PO QPM 4 08/16/24 Rx seizures #90 caps escitalopram oxalate 10 mg tablet 10 mg PO QHS #30 tabs 07/06/24 Rx (Lexapro) lamotrigine 250 mg tablet,extended 250 mg PO BID seizures #60 tabs 07/06/24 08/16/24 Rx release 24 hr zonisamide 100 mg capsule See Rx Instructions .Route 5 08/16/24 Rx .COMPLEX seizures #150 caps ravulizumab-cwvz 100 mg/mL 3,300 mg (33 mL) .Route .q8 weeks 07/27/24 08/16/24 Rx intravenous solution (Ultomiris) #33 mL Patient : No Nurse's Note: OV 09/14/24 Pt here for f/u and reports constipation, nausea and abdominal pain. Pt reports she is eating soft foods which has helped relieve gas and bloating. Reports a bm every 3 days. Pt is not taking Amitiza due to unwanted side effects. Takes prune ex to relieve constipation as needed. REPLACED BY [facility] Medical History Encounter to establish care Chronic abdominal pain Chronic constipation Hx of peripheral vascular disease Normal echocardiogram ( 05/18/16) Anemia Migraine headache Injury of head and neck Seizures Difficulty swallowing Difficulty chewing Non-smoker Shortness of breath on exertion Leg cramps History of stress test Chest pain Myasthenia gravis Surgical History History of colonoscopy (04/02/22) Hx of appendectomy Hx of total hip arthroplasty Hx of thymectomy Family History Mother Heart disease Cervical cancer Father No problems noted. Social History household members: children current occupational status: disabled pets and animals: Yes pets and animals: dog(s) and turtle(s) Smoking Status: Never smoker second hand exposure: Yes alcohol intake: never substance use type: does not use caffeine: Yes (1 cup coffee daily on avg) Type: coffee do you feel safe at home: Yes HPI HPI Chief Complaint: constipation Details: DOUG FLANAGAN, is a 34 F who presents to the office today for f/u. BGI established 4.16.25 with constipation and abd pain. Worsening constipation over the past year with a bm once a week. She has a hx of myasthenia gravis. Pt was prescribed Linzess but too nervous to try due to hx of MG. Sitz marker ordered. Recommended Amitiza. Sitz marker; slow transit constipation Biochemical work up; celiac wnl, food allergen wnl OV 5.15.25; Pt continues to have constipation. She tried Amitiza however this causes severe abd bloating so she discontinued it. She is now taking prunelax every 3 days which helps some. She will not have a bm unless she takes this. She has been eating mostly baby food which has made her feel much better. She has less boating and fatigue. ROS Const Constitutional: No fatigue, fever(s) or weight change ENT ENT: No difficulty swallowing Gastro GI: Positive for abdominal pain, constipation and nausea/dyspepsia; No belching, bloating, change in bowel habits, change in stool character, coffee ground emesis, cramping, diarrhea, heartburn, difficulty swallowing, feeling full early, excessive flatus, incontin ent of stools, Vomiting blood/hematemesis, Blood in stool, loose stools, Black,tarry stools, pain with swallowing, vomiting or other Musc Musculoskeletal: No joint pain Skin Skin: No yellowing of the eye or itchy eyes Neuro Neurology: Positive for seizures Psych Psychiatric: No anxiety and No depression Endo Endocrine: No fatigue or weight change Aller/Imm Masoud (more content not included)... Normal [facility] Lamotrigine (Lamictal) Level on 08-25-2024 LAMOTRIGINE 10.2 ug/mL Normal 2.0-20.0 [facility] Comment on above: Result Comment: Dete ction Limit = 1.0 Performed at: [facility] [address] [id number] Conveyor Worker: Dakota Beal MD, Phone: [phone] Performed By: #### L 6147.4402 #### [facility] [address] [place], [address] L5500.0550on 08-24-2024 BEEF <0.10 Normal Class 0 [facility] Comment on above: Performed By: #### L 0726.4400 #### [facility] [address] [place], [address] CHOCOLATE <0.10 Normal Class 0 [facility] Comment on above: Performed By: #### L 0393.4400 #### [facility] [address] [place], [address] CODFISH <0.10 Normal Class 0 [facility] Comment on above: Performed By: #### L 3300.4400 #### [facility] [address] [place], [place], [id number] COMMENT Comment Normal . [facility] Comment on above: Result Comment: Cindy laguerre of Specific IgE Class Description of Class ----- < 0.10 0 Negative 0.10 - 0.31 0/I Equivocal/Low 0.32 - 0.55 I Low 0.56 - 1.40 II Moderate 1.41 - 3.90 III High 3.91 - 19.00 IV Very High 19.01 - 100.00 V Very High >100.00 Very High Performed By: #### L 3300.4400 #### [facility] [address] [place], [place], [id number] CORN <0.10 Normal Class 0 [facility] Comment on above: Performed By: #### L 3300.4400 #### [facility] [address] [place], [place], [id number] EGG, WHOLE <0.10 Normal Class 0 [facility] Comment on above: Result Comment: Perf ormed at: [facility] [address] [id number] Conveyor Worker: Dakota Beal MD, Phone: [phone] Performed By: #### L 3300.4400 #### [facility] [address] [place], [address] MILK (COW) <0.10 Normal Class 0 [facility] Comment on above: Performed By: #### L 3300.4400 #### [facility] [address] [place], [address] MUSSELS <0.10 Normal Class 0 [facility] Comment on above: Performed By: #### L 3300.4400 #### [facility] [address] [place], [address] PEANUT <0.10 Normal Class 0 [facility] Comment on above: Performed By: #### L 3300.4400 #### [facility] [address] [place], [address] PORK <0.10 Normal Class 0 [facility] Comment on above: Performed By: #### L 3300.4400 #### [facility] [address] [place], [address] SALMON <0.10 Normal Class 0 [facility] Comment on above: Performed By: #### L 3300.4400 #### [facility] [address] [place], [address] SHRIMP <0.10 Normal Class 0 [facility] Comment on above: Performed By: #### L 3300.4400 #### [facility] [address] [place], [address] SOYBEAN <0.10 Normal Class 0 [facility] Comment on above: Performed By: #### L 3300.4400 #### [facility] [address] [place], [address] TUNA <0.10 Normal Class 0 [facility] Comment on above: Performed By: #### L 3300.4400 #### [facility] [address] [place], [address] WHEAT <0.10 Normal Class 0 [facility] Comment on above: Performed By: #### L 3300.4400 #### [facility] [address] [place], [address] Abdomen Single Viewon 2024 Abdomen Single View [facility] Imaging Services [address] [place] [address] Abdomen Single View MR#: [id number] Acct: [id number] Name: DOUG FLANAGAN Rep #: [id number] : 1990 F 34 From: Arley Benito PCP: Dr. Leander Patel MD Status: REG CLI Study: Abdomen Single View Date of Exam: 08/23/24 Exam# [id number] Ordering Dr: Katie Mayo PROCEDURE: ABDOMEN SINGLE VIEW 08/23/2024 REASON FOR EXAM: SITZ MARKER DAY 5 TECHNIQUE: Single view abdomen. COMPARISON: 08/21/2024 FINDINGS: See impression RAD/Abdomen Single View IMPRESSION: Multiple radiopaque markers are present in the region of the distal small bowel and throughout the proximal colon, similar to prior. Fecal retention. IUD in the pelvis. Osseous structures are intact. Reading Location: [place] CC: Dr. Leander Patel MD; BR[facility] Mater: Signed Normal [facility] Serum or plasma lamotrigine measurement (mass/volume)Ordered By: Kendall Encarnacion on 08-23-2024 lamoTRIgine [Mass/Vol] 10.2 ug/mL 2.0-20.0 [facility] Comment on above: Detection Limit = 1. 0Performed at: - [facility] [id number] Director: Dakota Beal MD, Phone: [phone] Abdomen Single Viewon 2024 Abdomen Single View [facility] Imaging Services [address] [place], [place] [id number] Abdomen Single View MR#: [id number] Acct: [id number] Name: DOUG FLANAGAN Rep #: [id number] : 1990 F 34 From: Scarlett Blanco nd, MD PCP: Dr. Leander Patel MD Status: REG CLI Study: Abdomen Single View Date of Exam: 08/21/24 Exam# [id number] Ordering Dr: Katie Mayo PROCEDURE: ABDOMEN SINGLE VIEW 08/21/2024 REASON FOR EXAM: SITZ MARKER DAY 3 TECHNIQUE: Single view abdomen. COMPARISON: None. FINDINGS: Bowel gas: The bowel loops are normal in caliber. Sitz markers within the distal small bowel and ascending colon. Calcifications: None. Bones: The bones are unremarkable. Other: IUD overlying the pelvis. RAD/Abdomen Single View IMPRESSION: Sitz markers within the distal small bowel and ascending colon. Reading Location: [facility] CC: Dr. Leander Patel MD; BRANDON [facility] Mater: Signed Normal [facility] Absolute lymphocyte countOrd ered By: Jhon Priest on 08-18-2024 Lymphocytes Auto (Unsp spec) [#/Vol] 1.74 10*3/uL 0.83-4.51 [facility] Absolute neutrophil countOrd ered By: Jhon Priest on 08-18-2024 Neutrophils (Bld) [#/Vol] 5.3 10*3/uL 2.0-7.7 [facility] Anion gap in Serum or Plasma Ordered By: Jhon Priest on 08-18-2024 Anion gap [Moles/Vol] 12 mmol/L 5-15 [facility] Automated lymphocyte count a s percentage of total leukocytesOrdered By: Jhon Priest on 08-18-2024 Lymphocytes/100 WBC Auto (Unsp spec) 22.5 % -41 [facility] BUN/creatinine ratioOrdered By: Jhon Priest on 08-18-2024 Urea nitrogen/Creatinine [Mass ratio] 11.3 mg/mg 10- [facility] Basic Metabolic Profile (BMP )on 08-18-2024 BUN/CRE 11.3 RATIO Normal - [facility] Comment on above: Performed By: #### L 801.1541, L3300.4400 #### [facility] [address] [place], [address] Calcium [Mass/Vol] 9.4 mg/dL Normal 7.6-11.0 [facility] Comment on above: Performed By: #### L 801.1541, L3300.4400 #### [facility] [address] [place], [address] Chloride [Moles/Vol] 107 mmol/L Normal 98-108 [facility] Comment on above: Performed By: #### L 801.1541, L3300.4400 #### [facility] [address] [place], [address] CO2 [Moles/Vol] 19.6 mmol/L Low 21.0-32.0 [facility] Comment on above: Performed By: #### L 801.1541, L3300.4400 #### [facility] [address] [place], [address] Creatinine [Mass/Vol] 0.77 mg/dL Normal 0.70-1.20 [facility] Comment on above: Performed By: #### L 801.1541, L3300.4400 #### [facility] [address] [place], [address] ECRCL 94.68 ml/min Normal 50-250 [facility] Comment on above: Performed By: #### L 801.1541, L3300.4400 #### [facility] [address] [place], [address] GAP 12 Normal 5-15 [facility] Comment on above: Performed By: #### L 801.1541, L3300.4400 #### [facility] [address] [place], [address] GFR/1.73 sq M.predicted among non-blacks MDRD (S/P/Bld) [Vol rate/Area] 103 mL/min/{1.73_m2} Normal >60 [facility] Comment on above: Result Comment: mL/m in/1.73m2 CKD-EPI Creatinine Equation (2020) Performed By: #### L 801.1541, L3300.4400 #### [facility] [address] [place], [address] Glucose [Mass/Vol] 114 mg/dL High 70-99 [facility] Comment on above: Performed By: #### L 801.1541, L3300.4400 #### [facility] [address] [place], [address] Potassium [Moles/Vol] 3.5 mmol/L Normal 3.3-5.1 [facility] Comment on above: Performed By: #### L 801.1541, L3300.4400 #### [facility] [address] [place], [address] Sodium [Moles/Vol] 139 mmol/L Normal 133-145 [facility] Comment on above: Performed By: #### L 801.1541, L3300.4400 #### [facility] [address] [place], [address] Urea nitrogen [Mass/Vol] 9 mg/dL Normal 4-19 [facility] Comment on above: Performed By: #### L 801.1541, L3300.4400 #### [facility] [address] [place], [address] Basophil percentageOrdered B y: Jhon Priest on 08-18-2024 Basophils/100 WBC (Bld) 0.5 % 0-1 [facility] CBC W/Diff, Automatedon 08-01 Absolute Lymph 1.74 X10 3/uL Normal 0.83-4.51 [facility] Comment on above: Performed By: #### L 801.1541, L3300.4400 #### [facility] [address] [place], [address] Absolute Neut 5.3 X10 3/uL Normal 2.0-7.7 [facility] Comment on above: Performed By: #### L 801.1541, L3300.4400 #### [facility] [address] [place], [address] Basophils/100 WBC (Bld) 0.5 % Normal 0-1 [facility] Comment on above: Performed By: #### L 801.1541, L3300.4400 #### [facility] [address] [place], [address] Eosinophils/100 WBC (Bld) 1.7 % Normal 0-5 [facility] Comment on above: Performed By: #### L 801.1541, L3300.4400 #### [facility] [address] [place], [address] Erythrocyte distribution width (RBC) [Ratio] 13.2 % Normal 11.6-14.6 [facility] Comment on above: Performed By: #### L 801.1541, L3300.4400 #### [facility] [address] [place], [address] Hematocrit (Bld) [Volume fraction] 40.6 % Normal 37-47 [facility] Comment on above: Performed By: #### L 801.1541, L3300.4400 #### [facility] [address] [place], [address] Hemoglobin (Bld) [Mass/Vol] 13.6 g/dL Normal 12.0-15.0 [facility] Comment on above: Performed By: #### L 801.1541, L3300.4400 #### [facility] [address] [place], [address] IG% 0.400 Normal 0.0-0.9 [facility] Comment on above: Result Comment: IG% - Immature Granulocytes (promyelocytes, myelocytes and metamyelocytes) > 1% indicates that a LEFT SHIFT is Present. Performed By: #### L 801.1541, L3300.4400 #### [facility] [address] [place], [address] Lymphocytes/100 WBC (Bld) 22.5 % Normal 19-41 [facility] Comment on above: Performed By: #### L 801.1541, L3300.4400 #### [facility] [address] [place], [address] MCH (RBC) [Entitic mass] 29.3 pg Normal 27.0-32.0 [facility] Comment on above: Performed By: #### L 801.1541, L3300.4400 #### [facility] [address] [place], [address] MCHC (RBC) [Mass/Vol] 33.5 g/dL Normal 32-36 [facility] Comment on above: Performed By: #### L 801.1541, L3300.4400 #### [facility] [address] [place], [address] MCV (RBC) [Entitic vol] 87.5 fL Normal 81-99 [facility] Comment on above: Performed By: #### L 801.1541, L3300.4400 #### [facility] [address] [place], [address] Monocytes/100 WBC (Bld) 6.3 % Normal 0-10 [facility] Comment on above: Performed By: #### L 801.1541, L3300.4400 #### [facility] [address] [place], [address] Neutrophils/100 WBC (Bld) 68.6 % Normal 47-70 [facility] Comment on above: Performed By: #### L 801.1541, L3300.4400 #### [facility] [address] [place], [address] Nucleated RBC (Bld) [#/Vol] 0 10*3/uL Normal 0-5 [facility] Comment on above: Performed By: #### L 801.1541, L3300.4400 #### [facility] [address] [place], [address] Platelet mean volume (Bld) [Entitic vol] 9.6 fL Normal 6.2-12.0 [facility] Comment on above: Performed By: #### L 801.1541, L3300.4400 #### [facility] [address] [place], [address] Platelets (Bld) [#/Vol] 269 10*3/uL Normal 150-450 [facility] Comment on above: Performed By: #### L 801.1541, L3300.4400 #### [facility] [address] [place], [address] RBC (Bld) [#/Vol] 4.64 10*6/uL Normal 4.2-5.4 [facility] Comment on above: Performed By: #### L 801.1541, L3300.4400 #### [facility] [address] [place], [address] RDW SD 42.2 fl Normal 35.1-43.9 [facility] Comment on above: Performed By: #### L 801.1541, L3300.4400 #### [facility] [address] [place], [address] WBC (Bld) [#/Vol] 7.7 10*3/uL Normal 4.4-11.0 [facility] Comment on above: Performed By: #### L 801.1541, L3300.4400 #### [facility] [address] [place], [address] Carbon dioxide, total [Moles /volume] in Central venous bloodOrdered By: Jhon Priest on 08-18-2024 CO2 [Moles/Vol] 19.6 mmol/L Low 21.0-32.0 [facility] Chloride assayOrdered By: Ferny Priest on 08-18-2024 Chloride [Moles/Vol] 107 mmol/L 98-108 [facility] Emergency Department Summary on 08-18-2024 Emergency Department Summary [facility] Medical Records Department [address] [place] [address] Emergency Department Summary 08/18/24 MR#: [id number] Acct: [id number] Name: DOUG FLANAGAN Rep #: [id number] : 1990 34 From: Jhon Priest DO PCP: Dr. Leander Patel MD Status:DEP ER Location: ED HPI History of Present Illness Chief Complaint: Seizure Informant: patient and parent Onset/Context/Timing Onset: Today Context: Gradual Onset Timing: Intermittent Quality: Shaky Location: Generalized Worsened by: Nothing Relieved by: Lorazepam Narrative Narrative: Patient presents with possible seizure that occurred today. Patient states she felt shaky and was shaking all over. Patient states this is how she feels prior to having a seizure. Patient called her mother. Mother gave the patient a milligram of lorazepam since she was still awake and alert. Patient was feeling better after this. Patient did not have a generalized tonic-clonic seizure. Patient states she was seen by [facility] recently and was given Sitzmarks for her constipation. Mother states she read the package instructions and states that this could interact with some of her medications. Prior similar symptoms: Yes [facility] Medical History Encounter to establish care Chronic abdominal pain Chronic constipation Hx of peripheral vascular disease Normal echocardiogram ( 05/18/16) Anemia Migraine headache Injury of head and neck Seizures Difficulty swallowing Difficulty chewing Non-smoker Shortness of breath on exertion Leg cramps History of stress test Chest pain Myasthenia gravis Home Medications ???Medication ???Instructions ???Recorded ???Last Taken ???Type levonorgestrel (Mirena) 20 mcg intrauterine UD 10/14 Unknown History control diazepam 10 mg/spray (0.1 mL) 10 mg intranasal PRN PRN Seizures 08/08/22 Unknown History nasal spray (Valtoco) zonisamide 100 mg capsule 300 mg (3 x 100 mg) PO QPM 04/12/ 4 Unknown Rx seizures #90 caps escitalopram oxalate 10 mg tablet 10 mg PO QHS #30 tabs 07/06/24 Un known Rx (Lexapro) lamotrigine 250 mg tablet,extended 250 mg PO BID seizures #60 tabs 07/06/24 Unknown Rx release 24 hr zonisamide 100 mg capsule See Rx Instructions .Route 5 Unknown Rx .COMPLEX seizures #150 caps ravulizumab-cwvz 100 mg/mL 3,300 mg (33 mL) .Route .q8 weeks 07/27/24 Unknown Rx intravenous solution (Ultomiris) #33 mL Allergy/AdvReac Type Severity Reaction Status Date / Time levetiracetam (From Keppra) Allergy Other Verified 08/18/24 11:44 Penicillins Allergy Rash Verified 08/18/24 11:44 phenytoin (From Dilantin) Allergy PT UNSURE Verified 08/18/24 11:44 OF REACTION prochlorperazine (From Allergy Other Verified 08/18/24 11:44 Compazine) shellfish derived Allergy Other Verified 08/18/24 11:44 soy AdvReac NEEDS Verified 08/18/24 11:44 FOLLOW-UP Family History Mother Heart disease Cervical cancer Father No problems noted. Surgical History History of colonoscopy (04/02/22) Hx of appendectomy Hx of total hip arthroplasty Hx of thymectomy Social History household members: children current occupational status: disabled pets and animals: Yes pets and animals: dog(s) and turtle(s) Smoking Status: Never smoker second hand exposure: Yes alcohol intake: never substance use type: does not use caffeine: Yes (1 cup coffee daily on avg) Type: coffee do you feel safe at home: Yes ROS ROS ED Constitutional Constitutional ED: Denies chills or fever(s) Eyes Eyes: Denies blurry vision or change in vision ENT ENT ED: Reports rhinorrhea; Denies sore throat Cardiovascular Cardiovascular: Denies chest pain or palpitations Respiratory/Chest Respiratory/Chest: Denies cough or dyspnea Gastrointestinal Gastrointestinal: Reports nausea; Denies vomiting Genitourinary Genitourinary ED: Denies dysuria or hematuria Musculoskeletal Musculoskeletal: Reports back pain; Denies neck pain Integumentary Denies abscess or rash Neurologic Neurologic: Denies headache(s) or weakness Allergic/Immunologic Allergic/Immunologic ED: Denies mouth swelling or urticaria EXAM Physical Exam Const Vital Signs: 08/18/24 11:44 08/18/24 13:43 Temperature 98.2 F Temperature Source Temporal Pulse Rate 111 H 72 Respiratory Rate 14 18 Blood Pressure 128/88 H 99/74 Blood Pressure Mean 101 82 Pulse Ox 98 97 Oxygen Delivery Method Room Air Room Air Positive well nourished and well developed Constitutional Narrativ (more content not included)... Normal [facility] Eosinophil percentageOrdered By: Jhon Priest on 08-18-2024 Eosinophils/100 WBC (Bld) 1.7 % 0-5 [facility] Erythrocyte distribution wid th (RBC) [Ratio]Ordered By: hJon Priest on 08-18-2024 Erythrocyte distribution width (RBC) [Entitic vol] 42.2 fL 35.1-43.9 [facility] Erythrocyte distribution wid th ratioOrdered By: Jhon Priest on 08-18-2024 Erythrocyte distribution width (RBC) [Ratio] 13.2 % 11.6-14.6 [facility] Erythrocyte distribution wid th standard deviationOrdered By: Jhon Priest on 08-18-2024 Erythrocyte distribution width (RBC) [Ratio] 42.2 fl 35.1-43.9 [facility] Estimation of creatinine sofia aranceOrdered By: Jhon Priest on 08-18-2024 Estimated Creatinine Clearance Calc 94.68 ml/min 50-250 [facility] GFR/1.73 sq M.predicted stephanie g non-blacks MDRD (S/P/Bld) [Vol rate/Area]Ordered By: Jhon Priest on 08-18-2024 Estimated GFR (MDRD) Non-Af Amer 103 >60 [facility] Comment on above: mL/min/1.73m2 CKD-EP I Creatinine Equation (2020) Glomerular filtration rate ( GFR) estimation/1.73 sq m using serum, plasma, or whole bOrdered By: Jhon Priest on 08-18-2024 GFR/1.73 sq M.predicted among non-blacks MDRD (S/P/Bld) [Vol rate/Area] 103 mL/min/{1.73_m2} >60 [facility] Comment on above: mL/min/1.73m2 CKD-EP I Creatinine Equation (2020) Hematocrit Auto (Bld) [Volum e fraction]Ordered By: Jhon Priest on 08-18-2024 Hematocrit (Bld) [Volume fraction] 40.6 % 37-47 [facility] Hemoglobin measurementOrdere d By: Jhon Priest on 08-18-2024 Hemoglobin (Bld) [Mass/Vol] 13.6 g/dL 12.0-15.0 [facility] Immature granulocytes/100 WB C Auto (Bld)Ordered By: Jhon Priest on 08-18-2024 Immature granulocytes/100 WBC (Bld) 0.400 % 0.0-0.9 [facility] Comment on above: IG% - Immature Granu locytes (promyelocytes, myelocytes and metamyelocytes) > 1% indicates that a LEFT SHIFT is Present. Lymphocytes Auto (Unsp spec) [#/Vol]Ordered By: Jhon Priest on 08-18-2024 Lymphocytes (Bld) [#/Vol] 1.74 10*3/uL 0.83-4.51 [facility] Lymphocytes/100 WBC Auto (Un sp spec)Ordered By: Jhon Priest 08-18-2024 Lymphocytes/100 WBC (Bld) 22.5 % 19-41 [facility] MCV (mean corpuscular volume ) determinationOrdered By: Jhon Priest 08-18-2024 MCV (RBC) [Entitic vol] 87.5 fL 81-99 [facility] Mean corpuscular hemoglobin (MCH) determinationOrdered By: Jhno Priest 08-18-2024 MCH (RBC) [Entitic mass] 29.3 pg 27.0-32.0 [facility] Mean corpuscular hemoglobin concentration (MCHC) determinationOrdered By: Jhon Priest on 08-18-2024 MCHC (RBC) [Mass/Vol] 33.5 g/dL 32-36 [facility] Mean platelet volume determi nationOrdered By: Jhon Priest on 08-18-2024 Platelet mean volume (Bld) [Entitic vol] 9.6 fL 6.2-12.0 [facility] Monocyte percentageOrdered B y: Jhon Priest on 08-18-2024 Monocytes/100 WBC (Bld) 6.3 % 0-10 [facility] Neutrophil percentageOrdered By: Jhon Priest on 08-18-2024 Neutrophils/100 WBC (Bld) 68.6 % 47-70 [facility] Nucleated red blood cell per centageOrdered By: Jhon Priest on 08-18-2024 Nucleated RBC/100 WBC (Bld) [Ratio] 0 % 0-5 [facility] Platelet countOrdered By: Ferny Priest on 08-18-2024 Platelets (Bld) [#/Vol] 269 10*3/uL 150-450 [facility] Potassium (Unsp spec) [Mass/ Vol]Ordered By: Jhon Priest on 08-18-2024 Potassium [Moles/Vol] 3.5 mmol/L 3.3-5.1 [facility] Potassium measurement (mass/ volume)Ordered By: Jhon Priest on 08-18-2024 Potassium (Unsp spec) [Mass/Vol] 3.5 mmol/L 3.3-5.1 [facility] RBC Auto (Bld) [#/Vol]Ordere d By: Jhon Priest on 08-18-2024 RBC (Bld) [#/Vol] 4.64 10*6/uL 4.2-5.4 [facility] Serum creatinine measurement (mass/volume)Ordered By: Jhon Priest on 08-18-2024 Creatinine [Mass/Vol] 0.77 mg/dL 0.70-1.20 [facility] Serum glucose measurement (m ass/volume)Ordered By: Jhon Priest on 08-18-2024 Glucose [Mass/Vol] 114 mg/dL High 70-99 [facility] Serum or plasma calcium traci urement (mass/volume)Ordered By: Jhon Priest on 08-18-2024 Calcium [Mass/Vol] 9.4 mg/dL 7.6-11.0 [facility] Serum or plasma urea nitroge n measurement (mass/volume)Ordered By: Jhon Priest on 08-18-2024 Urea nitrogen [Mass/Vol] 9 mg/dL 4-19 [facility] Sodium levelOrdered By: Jhon Priest on 08-18-2024 Sodium [Moles/Vol] 139 mmol/L 133-145 [facility] White blood cell (WBC) count Ordered By: Jhon Priest on 08-18-2024 WBC (Bld) [#/Vol] 7.7 10*3/uL 4.4-11.0 [facility] Endomysial Antibody IgAon ENDOMYSIAL IGA Negative Normal Negative [facility] Comment on above: Performed By: #### L 801.1541, L3300.4400 #### [facility] [address] [place], [address] Immunoglobulin Aon 5 IMMUNOGLOB A QN 321 mg/dL Normal 87-352 [facility] Comment on above: Order Comment: RED R MT [id number] ZONISAMIDE Result Comment: Perf ormed at: - [facility] [address] [id number] Conveyor Worker: Nicolas Fleming PhD, Phone: [phone] Performed By: #### L 801.1541, [id number] #### [facility] [address] [place], [address] t-Transglutaminase IgAon tTG IGA <2 Normal 0-3 [facility] Comment on above: Result Comment: Nega tive 0 - 3 Weak Positive 4 - 10 Positive >10 Tissue Transglutaminase (tTG) has been identified as the endomysial antigen. Studies have demonstr- ated that endomysial IgA antibodies have over 99% specificity for gluten sensitive enteropathy. Performed By: #### L 801.1541, [id number] #### [facility] [address] [place], [place], [id number] Endomysial IgA antibody assa yOrdered By: Katie Mayo on 08-16-2024 Endomysial IgA Antibody Negative Negative [facility] Gastroenterology Visit Repor ton 08-16-2024 Gastroenterology Visit Report [facility] [address] [place] [address] OFFICE VISIT Date of Service: 08/16/24 MR#: [id number] Acct: [id number] Name: DOUG FLANAGAN Rep #: [id number] : 1990 Provider: BRANDON Dunaway Age/Sex: 34/F Location: [email or web address] Status: Signed with Addenda ADDENDUM by BRANDON Dunaway on 08/16/24 at 1136 HPI Details: DOUG FLANAGAN, is a 34 F who presents to the office today for 08/16/24 1136 Date Katie Mayo cc: * Signed Intake Vital Signs 07/26/24 14:04 Height 5 ft 2 in Weight: 159 lb BMI 29.0 BP 114/68 Blood Pressure Location Lt femoral Position Sitting Respiration 16 Pulse 97 Pulse Source Monitor Temp 98.5 F Temp Source Temporal Pulse Oximetry (%) 97 Oxygen Delivery Method room air Intake Visit Reasons: Constipation Chief Complaint: constipation Mail Caller Required: No Accompanied by: Self Is patient in pain?: Yes (mid to left side abdomen) Pain scale (1-10): 6 Allergies levetiracetam (From Keppra) Allergy (Verified 08/16/24 07:51) Other Penicillins Allergy (Verified 08/16/24 07:51) Rash phenytoin (From Dilantin) Allergy (Verified 08/16/24 07:51) PT UNSURE OF REACTION prochlorperazine (From Compazine) Allergy (Verified 08/16/24 07:51) Other shellfish derived Allergy (Verified 08/16/24 07:51) Other soy Adverse Reaction (Verified 08/16/24 07:51) NEEDS FOLLOW-UP Medications ???Medication ???Instructions ???Recorded ???Confirmed ???Type levonorgestrel (Mirena) 20 mcg intrauterine UD 10/1408/16/24 History control diazepam 10 mg/spray (0.1 mL) 10 mg intranasal PRN PRN Seizures 08/08/22 08/16/24 History nasal spray (Valtoco) zonisamide 100 mg capsule 300 mg (3 x 100 mg) PO QPM 4 08/16/24 Rx seizures #90 caps escitalopram oxalate 10 mg tablet 10 mg PO QHS #30 tabs 07/06/24 Rx (Lexapro) lamotrigine 250 mg tablet,extended 250 mg PO BID seizures #60 tabs 07/06/24 08/16/24 Rx release 24 hr zonisamide 100 mg capsule See Rx Instructions .Route 5 08/16/24 Rx .COMPLEX seizures #150 caps ravulizumab-cwvz 100 mg/mL 3,300 mg (33 mL) .Route .q8 weeks 07/27/24 08/16/24 Rx intravenous solution (Ultomiris) #33 mL Nurse's Note: C/o severe constipation, abdominal pain, bloating. Started in 2021. Hx normal colonoscopy and abdominal US. Hx ED visits with severe abdominal pain with Dx constipation. Prescribed Linzess in past although contraindicated per pharmacist d/t myasthenia gravis. Seen [facility] gastro in past. Hx xray nonobstruction bowel gas pattern and large stool burden. Takes prune lax for constipation. Has not had BM in 7 days. There are other time when BM may take 12 days. BM can hard with mucous. REPLACED BY [facility] Medical History Encounter to establish care Chronic abdominal pain Chronic constipation Hx of peripheral vascular disease Normal echocardiogram ( 05/18/16) Anemia Migraine headache Injury of head and neck Seizures Difficulty swallowing Difficulty chewing Non-smoker Shortness of breath on exertion Leg cramps History of stress test Chest pain Myasthenia gravis Surgical History History of colonoscopy (04/02/22) Hx of appendectomy Hx of total hip arthroplasty Hx of thymectomy Family History Mother Heart disease Cervical cancer Father No problems noted. Social History household members: children current occupational status: disabled pets and animals: Yes pets and animals: dog(s) and turtle(s) Smoking Status: Never smoker second hand exposure: Yes alcohol intake: never substance use type: does not use caffeine: Yes (1 cup coffee daily on avg) Type: coffee do you feel safe at home: Yes HPI HPI Chief Complaint: constipation Details: DOUG FLANAGAN, is a 34 F who presents to the office today for establishment with [facility]. Referred from PCP for constipation and abd pain. Last colonoscopy in 2021 due to pain which was normal. Started on Linzess 72 mcg but pharmacist did not recommend she take it due to her myasthenia gravis. Pt has tried a myriad of constipation medication including lactulose, miralax, psyllium, senna, and enemas which did give her a bm. The only laxative that will give her a bm is prune lax. She has not had a bm in about 7 days at this point. She wonders if her myasthenia gravis is causing her intestines to not work. She also has had some issues with acid reflux during the night over the past month along with nausea. She has never had EGD. ROS Const Co (more content not included)... Normal [facility] IgA [Mass/Vol]Ordered By: Amy Mayo on 08-16-2024 Immunoglobulin A 321 mg/dL 87-352 [facility] Comment on above: Performed at: [address] [id number] Director: Nicolas Fleming PhD, Phone: [phone] Laboratory - Miscellaneous t estsOrdered By: Katie Mayo on 08-16-2024 Service comment (Unsp spec) [Interp] Comment . [facility] Comment on above: Levels of Specific I gE Class Description of Class ----- < 0.10 0 Negative 0.10 - 0.31 0/I Equivocal/Low 0.32 - 0.55 I Low 0.56 - 1.40 II Moderate 1.41 - 3.90 III High 3.91 - 19.00 IV Very High 19.01 - 100.00 V Very High >100.00 Very High Serum beef IgE antibody assa y (units/volume)Ordered By: Katie Mayo on 08-16-2024 Beef IgE Qn (S) <0.10 kU/L Class 0 [facility] Serum codfish IgE antibody a ssay (units/volume)Ordered By: Katie Mayo on 08-16-2024 Codfish IgE Qn (S) <0.10 kU/L Class 0 [facility] Serum corn IgE antibody assa y (units/volume)Ordered By: Katie Mayo on 08-16-2024 [place] IgE Qn (S) <0.10 kU/L Class 0 [facility] Serum cow milk IgE antibody assay (units/volume)Ordered By: Katie Mayo on 08-16-2024 Cow milk IgE Qn (S) <0.10 kU/L Class 0 [facility] Serum or plasma IgA measurem ent (mass/volume)Ordered By: Katie Mayo on 08-16-2024 IgA [Mass/Vol] 321 mg/dL 87-352 [facility] Comment on above: Performed at: [place] [id number] Director: Nicolas Fleming PhD, Phone: [phone] Serum peanut IgE antibody as say (units/volume)Ordered By: Katie Mayo on 08-16-2024 Peanut IgE Qn (S) <0.10 kU/L Class 0 [facility] Serum pork IgE antibody assa y (units/volume)Ordered By: Katie Mayo on 08-16-2024 Pork IgE Qn (S) <0.10 kU/L Class 0 [facility] Serum salmon IgE antibody as say (units/volume)Ordered By: Katie Mayo on 08-16-2024 Wana IgE Qn (S) <0.10 kU/L Class 0 [facility] Serum soybean IgE antibody a ssay (units/volume)Ordered By: Katie Mayo on 08-16-2024 Soybean IgE Qn (S) <0.10 kU/L Class 0 [facility] Serum tissue transglutaminas e (tTG) IgA antibody assay (units/volume)Ordered By: Katie Mayo on 08-16-2024 tTG IgA Qn (S) <2 U/mL 0-3 [facility] Comment on above: Negative 0 - 3 Weak Positive 4 - 10 Positive >10 Tissue Transglutaminase (tTG) has been identified as the endomysial antigen. Studies have demonstr- ated that endomysial IgA antibodies have over 99% specificity for gluten sensitive enteropathy. Serum tuna IgE antibody assa y (units/volume)Ordered By: Katie Mayo on 08-16-2024 Tuna IgE Qn (S) <0.10 kU/L Class 0 [facility] Serum wheat IgE antibody ass ay (units/volume)Ordered By: Katie Mayo on 08-16-2024 Wheat IgE Qn (S) <0.10 kU/L Class 0 [facility] Serum whole egg IgE antibody assay (units/volume)Ordered By: Katie Mayo on 08-16-2024 Whole Egg IgE Qn (S) <0.10 kU/L Class 0 [facility] Comment on above: Performed at: [facility] [address] [id number] Director: Dakota Beal MD, Phone: [phone] tTG IgA Qn (S)Ordered By: Amy Mayo on 08-16-2024 Tissue Transglutaminase IgA Ab <2 U/mL 0-3 [facility] Comment on above: Negative 0 - 3 Weak Positive 4 - 10 Positive >10 Tissue Transglutaminase (tTG) has been identified as the endomysial antigen. Studies have demonstr- ated that endomysial IgA antibodies have over 99% specificity for gluten sensitive enteropathy. [facility] Misc.on 08-08-2024 [facility] Misc. COMMENT Normal . [facility] Comment on above: Order Comment: RED/S RUSSELL/[id number] Result Comment: Test Ordered: [id number] Zonisamide(Zonegran), Serum Zonisamide 29.3 ug/mL Reference Range: 10.0-40.0 Detection Limit = 2.0 Performed at: [employer] [facility] [address] [id number] Conveyor Worker: Dakota Beal MD, Phone: [phone] Performed at: [facility] [id number] Conveyor Worker: Nicolas Fleming PhD, Phone: [phone] Performed By: #### L 8190.4400 #### [facility] Laboratory [address] [place], [address] Lamotrigine (Lamictal) Level on 08-08-2024 LAMOTRIGINE 16.3 ug/mL Normal 2.0-20.0 [facility] Comment on above: Result Comment: Dete ction Limit = 1.0 Performed at: [facility] [address] [id number] Conveyor Worker: Dakota Beal MD, Phone: [phone] Performed By: #### L 1382.4400 #### [facility] [address] [place], [address] Absolute lymphocyte countOrd ered By: Kendall Encarnacion on 08-05-2024 Lymphocytes Auto (Unsp spec) [#/Vol] 1.37 10*3/uL 0.83-4.51 [facility] Absolute neutrophil countOrd ered By: Kendall Encarnacion on 08-05-2024 Neutrophils (Bld) [#/Vol] 4.7 10*3/uL 2.0-7.7 [facility] Ammoniaon 08-05-2024 Ammonia (P) [Moles/Vol] 39.3 umol/L Normal 11-51 [facility] Comment on above: Performed By: #### L 3300.4400 #### [facility] [address] [place], [address] Anion gap in Serum or Plasma Ordered By: Kendall Encarnacion on 08-05-2024 Anion gap [Moles/Vol] 12 mmol/L 5-15 [facility] Automated lymphocyte count a s percentage of total leukocytesOrdered By: Kendall Encarnacion on 08-05-2024 Lymphocytes/100 WBC Auto (Unsp spec) 20.9 % 19-41 [facility] BUN/creatinine ratioOrdered By: Kendall Encarnacion on 08-05-2024 Urea nitrogen/Creatinine [Mass ratio] 13.4 mg/mg 10- [facility] Basophil percentageOrdered B y: Kendall Encarnacion on 08-05-2024 Basophils/100 WBC (Bld) 0.8 % 0-1 [facility] Bilirubin, totalOrdered By: Kendall Encarnacion on 08-05-2024 Bilirubin [Mass/Vol] 0.38 mg/dL 0.00-1.30 [facility] CBC W/Diff, Automatedon Absolute Lymph 1.37 X10 3/uL Normal 0.83-4.51 [facility] Comment on above: Performed By: #### L 3300.4400 #### [facility] [address] [place], [address] Absolute Neut 4.7 X10 3/uL Normal 2.0-7.7 [facility] Comment on above: Performed By: #### L 3300.4400 #### [facility] [address] [place], [address] Basophils/100 WBC (Bld) 0.8 % Normal 0-1 [facility] Comment on above: Performed By: #### L 3300.4400 #### [facility] [address] [place], [address] Eosinophils/100 WBC (Bld) 1.8 % Normal 0-5 [facility] Comment on above: Performed By: #### L 3300.4400 #### [facility] [address] [place], [address] Erythrocyte distribution width (RBC) [Ratio] 13.3 % Normal 11.6-14.6 [facility] Comment on above: Performed By: #### L 3300.4400 #### [facility] [address] [place], [address] Hematocrit (Bld) [Volume fraction] 42.6 % Normal 37-47 [facility] Comment on above: Performed By: #### L 3300.4400 #### [facility] [address] [place], [address] Hemoglobin (Bld) [Mass/Vol] 14.5 g/dL Normal 12.0-15.0 [facility] Comment on above: Performed By: #### L 3300.4400 #### [facility] [address] [place], [address] IG% 0.300 Normal 0.0-0.9 [facility] Comment on above: Result Comment: IG% - Immature Granulocytes (promyelocytes, myelocytes and metamyelocytes) > 1% indicates that a LEFT SHIFT is Present. Performed By: #### L 3300.4400 #### [facility] [address] [place], [address] Lymphocytes/100 WBC (Bld) 20.9 % Normal 19-41 [facility] Comment on above: Performed By: #### L 3300.4400 #### [facility] [address] [place], [address] MCH (RBC) [Entitic mass] 29.7 pg Normal 27.0-32.0 [facility] Comment on above: Performed By: #### L 3300.4400 #### [facility] [address] [place], [address] MCHC (RBC) [Mass/Vol] 34.0 g/dL Normal 32-36 [facility] Comment on above: Performed By: #### L 3300.4400 #### [facility] [address] [place], [address] MCV (RBC) [Entitic vol] 87.1 fL Normal 81-99 [facility] Comment on above: Performed By: #### L 3300.4400 #### [facility] [address] [place], [address] Monocytes/100 WBC (Bld) 5.2 % Normal 0-10 [facility] Comment on above: Performed By: #### L 3300.4400 #### [facility] [address] [place], [address] Neutrophils/100 WBC (Bld) 71.0 % High 47-70 [facility] Comment on above: Performed By: #### L 3300.4400 #### [facility] [address] [place], [address] Nucleated RBC (Bld) [#/Vol] 0 10*3/uL Normal 0-5 [facility] Comment on above: Performed By: #### L 3300.4400 #### [facility] [address] [place], [address] Platelet mean volume (Bld) [Entitic vol] 9.4 fL Normal 6.2-12.0 [facility] Comment on above: Performed By: #### L 3300.4400 #### [facility] [address] [place], [address] Platelets (Bld) [#/Vol] 249 10*3/uL Normal 150-450 [facility] Comment on above: Performed By: #### L 3300.4400 #### [facility] [address] [place], [address] RBC (Bld) [#/Vol] 4.89 10*6/uL Normal 4.2-5.4 [facility] Comment on above: Performed By: #### L 3300.4400 #### [facility] [address] [place], [address] RDW SD 41.7 fl Normal 35.1-43.9 [facility] Comment on above: Performed By: #### L 3300.4400 #### [facility] [address] [place], [address] WBC (Bld) [#/Vol] 6.6 10*3/uL Normal 4.4-11.0 [facility] Comment on above: Performed By: #### L 3300.4400 #### [facility] [address] [place], [address] Carbon dioxide, total [Moles /volume] in Central venous bloodOrdered By: Kendall Encarnacion on 08-05-2024 CO2 [Moles/Vol] 17.4 mmol/L Low 21.0-32.0 [facility] Chloride assayOrdered By: Ra torey Encarnacion on 08-05-2024 Chloride [Moles/Vol] 109 mmol/L High 98-108 [facility] Comprehensive Metabolic Prof ilon 08-05-2024 Albumin [Mass/Vol] 4.4 g/dL Normal 3.5-5.0 [facility] Comment on above: Performed By: #### L 3300.4400 #### [facility] [address] [place], [address] Albumin/Globulin [Mass ratio] 1.5 {ratio} Normal 0.9-2.4 [facility] Comment on above: Performed By: #### L 3300.4400 #### [facility] [address] [place], [address] ALK PHOS 103 U/L Normal 35-104 [facility] Comment on above: Performed By: #### L 3300.4400 #### [facility] [address] [place], [address] ALT [Catalytic activity/Vol] 19 U/L Normal <=34 [facility] Comment on above: Performed By: #### L 3300.4400 #### [facility] [address] [place], [address] AST [Catalytic activity/Vol] 23 U/L Normal <=31 [facility] Comment on above: Performed By: #### L 3300.4400 #### [facility] [address] [place], [address] Bilirubin [Mass/Vol] 0.38 mg/dL Normal 0.00-1.30 [facility] Comment on above: Performed By: #### L 3300.4400 #### [facility] [address] [place], [address] BUN/CRE 13.4 RATIO Normal 10-20 [facility] Comment on above: Performed By: #### L 3300.4400 #### [facility] [address] [place], [address] Calcium [Mass/Vol] 9.6 mg/dL Normal 7.6-11.0 [facility] Comment on above: Performed By: #### L 0.4400 #### [facility] [address] [place], [address] Chloride [Moles/Vol] 109 mmol/L High 98-108 [facility] Comment on above: Performed By: #### L 3300.4400 #### [facility] [address] [place], [address] CO2 [Moles/Vol] 17.4 mmol/L Low 21.0-32.0 [facility] Comment on above: Performed By: #### L 3300.4400 #### [facility] [address] [place], [address] Creatinine [Mass/Vol] 0.81 mg/dL Normal 0.70-1.20 [facility] Comment on above: Performed By: #### L 3300.4400 #### [facility] [address] [place], [address] GAP 12 Normal 5-15 [facility] Comment on above: Performed By: #### L 3300.4400 #### [facility] [address] [place], [address] GFR/1.73 sq M.predicted among non-blacks MDRD (S/P/Bld) [Vol rate/Area] 98 mL/min/{1.73_m2} Normal >60 [facility] Comment on above: Result Comment: mL/m in/1.73m2 CKD-EPI Creatinine Equation (2020) Performed By: #### L 3300.4400 #### [facility] [address] [place], [address] Globulin (S) [Mass/Vol] 3.0 g/dL Normal 2.2-4.2 [facility] Comment on above: Performed By: #### L 3300.4400 #### [facility] [address] [place], [address] Glucose [Mass/Vol] 92 mg/dL Normal 70-99 [facility] Comment on above: Performed By: #### L 3300.4400 #### [facility] [address] [place], [address] Potassium [Moles/Vol] 3.8 mmol/L Normal 3.3-5.1 [facility] Comment on above: Performed By: #### L 3300.4400 #### [facility] [address] [place], [address] Sodium [Moles/Vol] 138 mmol/L Normal 133-145 [facility] Comment on above: Performed By: #### L 3300.4400 #### [facility] [address] [place], [address] T PROT 7.4 g/dL Normal 5.9-8.4 [facility] Comment on above: Performed By: #### L 3300.4400 #### [facility] [address] [place], [address] Urea nitrogen [Mass/Vol] 11 mg/dL Normal 4-19 [facility] Comment on above: Performed By: #### L 3300.4400 #### [facility] [address] [place], [address] Eosinophil percentageOrdered By: Kendall Encarnacion on 08-05-2024 Eosinophils/100 WBC (Bld) 1.8 % 0-5 [facility] Erythrocyte distribution wid th (RBC) [Ratio]Ordered By: Kendall Encarnacion on 08-05-2024 Erythrocyte distribution width (RBC) [Entitic vol] 41.7 fL 35.1-43.9 [facility] Erythrocyte distribution wid th ratioOrdered By: Kendall Encarnacion on 08-05-2024 Erythrocyte distribution width (RBC) [Ratio] 13.3 % 11.6-14.6 [facility] Erythrocyte distribution wid th standard deviationOrdered By: Kendall Encarnacion on 08-05-2024 Erythrocyte distribution width (RBC) [Ratio] 41.7 fl 35.1-43.9 [facility] GFR/1.73 sq M.predicted stephanie g non-blacks MDRD (S/P/Bld) [Vol rate/Area]Ordered By: Kendall Encarnacion 08-05-2024 Estimated GFR (MDRD) Non-Af Amer 98 >60 [facility] Comment on above: mL/min/1.73m2 CKD-EP I Creatinine Equation (2020) Glomerular filtration rate ( GFR) estimation/1.73 sq m using serum, plasma, or whole bOrdered By: Kendall Encarnacion 08-05-2024 GFR/1.73 sq M.predicted among non-blacks MDRD (S/P/Bld) [Vol rate/Area] 98 mL/min/{1.73_m2} >60 [facility] Comment on above: mL/min/1.73m2 CKD-EP I Creatinine Equation (2020) Hematocrit Auto (Bld) [Volum e fraction]Ordered By: Kendall Encarnacion 08-05-2024 Hematocrit (Bld) [Volume fraction] 42.6 % 37-47 [facility] Hemoglobin measurementOrdere d By: Kendall Encarnacion 08-05-2024 Hemoglobin (Bld) [Mass/Vol] 14.5 g/dL 12.0-15.0 [facility] Immature granulocytes/100 WB C Auto (Bld)Ordered By: Kendall Encarnacion on 08-05-2024 Immature granulocytes/100 WBC (Bld) 0.300 % 0.0-0.9 [facility] Comment on above: IG% - Immature Granu locytes (promyelocytes, myelocytes and metamyelocytes) > 1% indicates that a LEFT SHIFT is Present. Laboratory - Chemistry and C hemistry - challengeOrdered By: Kendall Encarnacion on 08-05-2024 AST [Catalytic activity/Vol] 23 U/L <32 [facility] Lymphocytes Auto (Unsp spec) [#/Vol]Ordered By: Kendall Encarnacion on 08-05-2024 Lymphocytes (Bld) [#/Vol] 1.37 10*3/uL 0.83-4.51 [facility] Lymphocytes/100 WBC Auto (Un sp spec)Ordered By: Kendall Encarnacion on 08-05-2024 Lymphocytes/100 WBC (Bld) 20.9 % 19-41 [facility] MCV (mean corpuscular volume ) determinationOrdered By: Kendall Encarnacion 08-05-2024 MCV (RBC) [Entitic vol] 87.1 fL 81-99 [facility] Mean corpuscular hemoglobin (MCH) determinationOrdered By: Kendall Encarnacion 08-05-2024 MCH (RBC) [Entitic mass] 29.7 pg 27.0-32.0 [facility] Mean corpuscular hemoglobin concentration (MCHC) determinationOrdered By: Kendall Encarnacion on 08-05-2024 MCHC (RBC) [Mass/Vol] 34.0 g/dL 32-36 [facility] Mean platelet volume determi nationOrdered By: Kendall Encarnacion on 08-05-2024 Platelet mean volume (Bld) [Entitic vol] 9.4 fL 6.2-12.0 [facility] Monocyte percentageOrdered B y: Kendall Encarnacion on 08-05-2024 Monocytes/100 WBC (Bld) 5.2 % 0-10 [facility] Neutrophil percentageOrdered By: Kendall Encarnacion on 08-05-2024 Neutrophils/100 WBC (Bld) 71.0 % High 47-70 [facility] Nucleated red blood cell per centageOrdered By: Kendall Encarnacion on 08-05-2024 Nucleated RBC/100 WBC (Bld) [Ratio] 0 % 0-5 [facility] Platelet countOrdered By: Ra torey Encarnaicon on 08-05-2024 Platelets (Bld) [#/Vol] 249 10*3/uL 150-450 [facility] Potassium (Unsp spec) [Mass/ Vol]Ordered By: Kendall Encarnacion on 08-05-2024 Potassium [Moles/Vol] 3.8 mmol/L 3.3-5.1 [facility] Potassium measurement (mass/ volume)Ordered By: Kendall Encarnacion on 08-05-2024 Potassium (Unsp spec) [Mass/Vol] 3.8 mmol/L 3.3-5.1 [facility] RBC Auto (Bld) [#/Vol]Ordere d By: Kendall Encarnacion on 08-05-2024 RBC (Bld) [#/Vol] 4.89 10*6/uL 4.2-5.4 [facility] Serum creatinine measurement (mass/volume)Ordered By: Kendall Encarnacion 08-05-2024 Creatinine [Mass/Vol] 0.81 mg/dL 0.70-1.20 [facility] Serum globulin measurementOr dered By: Kendall Encarnacion 08-05-2024 Globulin (S) [Mass/Vol] 3.0 g/dL 2.2-4.2 [facility] Serum glucose measurement (m ass/volume)Ordered By: Kendall Encarnacion 08-05-2024 Glucose [Mass/Vol] 92 mg/dL 70-99 [facility] Serum or plasma alanine diallo otransferase (ALT) measurementOrdered By: Kendall Encarnacion 08-05-2024 ALT [Catalytic activity/Vol] 19 U/L <35 [facility] Serum or plasma albumin traci urement (mass/volume)Ordered By: Kendall Encarnacion 08-05-2024 Albumin [Mass/Vol] 4.4 g/dL 3.5-5.0 [facility] Serum or plasma albumin/glob ulin mass ratioOrdered By: Kendall Encarnacion on 08-05-2024 Albumin/Globulin [Mass ratio] 1.5 {ratio} 0.9-2.4 [facility] Serum or plasma alkaline abby sphatase measurementOrdered By: Kendall Encarnacion on 08-05-2024 ALP [Catalytic activity/Vol] 103 U/L 35-104 [facility] Serum or plasma calcium traci urement (mass/volume)Ordered By: Kendall Encarnacion on 08-05-2024 Calcium [Mass/Vol] 9.6 mg/dL 7.6-11.0 [facility] Serum or plasma lamotrigine measurement (mass/volume)Ordered By: Kendall Encarnacion on 08-05-2024 lamoTRIgine [Mass/Vol] 16.3 ug/mL 2.0-20.0 [facility] Comment on above: Detection Limit = 1. 0Performed at: [facility] [id number] Director: Dakota Beal MD, Phone: [phone] Serum or plasma urea nitroge n measurement (mass/volume)Ordered By: Kendall Encarnacion on 08-05-2024 Urea nitrogen [Mass/Vol] 11 mg/dL 4-19 [facility] Sodium levelOrdered By: Chas Encarnacion on 08-05-2024 Sodium [Moles/Vol] 138 mmol/L 133-145 [facility] T4 Free Directon 08-05-2024 T4 FREE DIRECT 0.90 ng/dL Normal 0.76-1.46 [facility] Comment on above: Performed By: #### L 501.080 #### [facility] [address] [place] [address]. [place], [address] T4 freeOrdered By: Leander Patel on 08-05-2024 Free T4 [Mass/Vol] 0.90 ng/dL 0.76-1.46 [facility] TSH DL <= 0.005 mIU/L QnOrde red By: Leander Patel on 08-05-2024 Thyroid Stimulating Hormone (TSH) 2.110 uIU/mL 0.300-4.20 0 [facility] TSH Qn 2.110 uIU/mL 0.300-4.20 0 [facility] Thyroid Stim Hormone (TSH)on 08-05-2024 TSH 2.110 uIU/mL Normal 0.300-4.20 0 [facility] Comment on above: Performed By: #### L 501.080 #### [facility] [address] [place], [address] Total proteinOrdered By: Reji Encarnacion on 08-05-2024 Protein [Mass/Vol] 7.4 g/dL 5.9-8.4 [facility] Venous blood ammonia measure mentOrdered By: Kendall Encarnacion on 08-05-2024 Ammonia (P) [Moles/Vol] 39.3 umol/L 11-51 [facility] White blood cell (WBC) count Ordered By: Kendall Encarnacion on 08-05-2024 WBC (Bld) [#/Vol] 6.6 10*3/uL 4.4-11.0 [facility] lamoTRIgine [Mass/Vol]Ordere d By: Kendall Encarnacion on 08-05-2024 Lamotrigine (Lamictal) Level 16.3 ug/mL 2.0-20.0 [facility] Comment on above: Detection Limit = 1. 0Performed at: [facility] [address] [id number] Director: Dakota Beal MD, Phone: [phone] Internal Medicine Office Vis iton 07-26-2024 Internal Medicine Office Visit [facility] [address] [place] [address] [place] [address] OFFICE VISIT Date of Service: 07/26/24 MR#: [id number] Acct: [id number] Name: MASHADOUG KIRK Rep #: [id number] : 1990 Provider: Dr. Leander cason MD Age/Sex: 33/F Location: [facility] Status: Signed Intake Vital Signs 04/12/24 13:55 07/06/24 08:32 07/26/24 14:04 Height 5 ft 2 in 5 ft 2 in 5 ft 2 in Weight: 160 lb 10 oz 159 lb BMI 29.3 29.0 BP 110/68 114/68 Blood Pressure Location Rt brachial Lt femoral Position Sitting Sitting Respiration 17 16 Pulse 100 97 Pulse Source Monitor Monitor Temp 98.6 F 98.5 F Temp Source Temporal Temporal Pulse Oximetry (%) 97 97 Oxygen Delivery Method room air room air Intake Visit Reasons: Booked from other vendor Chief Complaint: Establish care. Constipation Mail Caller Required: No Is patient in pain?: No Allergies levetiracetam (From Keppra) Allergy (Verified 07/26/24 13:51) Other Penicillins Allergy (Verified 07/26/24 13:51) Rash phenytoin (From Dilantin) Allergy (Verified 07/26/24 13:51) PT UNSURE OF REACTION prochlorperazine (From Compazine) Allergy (Verified 07/26/24 13:51) Other shellfish derived Allergy (Verified 07/26/24 13:51) Other soy Adverse Reaction (Verified 07/26/24 13:51) NEEDS FOLLOW-UP Medications ???Medication ???Instructions ???Recorded ???Confirmed ???Type levonorgestrel (Mirena) 20 mcg intrauterine UD 10/1407/26/24 History control diazepam 10 mg/spray (0.1 mL) 10 mg intranasal PRN PRN Seizures 08/08/22 07/26/24 History nasal spray (Valtoco) zonisamide 100 mg capsule 300 mg (3 x 100 mg) PO QPM 4 07/26/24 Rx seizures #90 caps escitalopram oxalate 10 mg tablet 10 mg PO QHS #30 tabs 07/06/24 Rx (Lexapro) lamotrigine 250 mg tablet,extended 250 mg PO BID seizures #60 tabs 07/06/24 07/26/24 Rx release 24 hr ravulizumab-cwvz 100 mg/mL 3,300 mg (33 mL) .Route .q8 weeks 07/06/24 07/26/24 Rx intravenous solution (Ultomiris) #33 mL zonisamide 100 mg capsule See Rx Instructions .Route 5 07/26/24 Rx .COMPLEX seizures #150 caps linaclotide 72 mcg capsule 72 mcg PO QAM #30 caps 07/26/24 Rx (Linzess) Nurse's Note: States she does not typically have BM's she has to take a laxative in order to have a BM she does get gassy. She has been bloating after she has a BM and she feels bruised, the pain will get so severe she doesn't want to move or eat for 2 days after having bm's States she loses 5 lbs when this happens. Was just on lactulose for ammonia and it did nothing takes prunex qod. States in the last 5 years this has happened, saw obgyn and did a us which was normal. States she has gone to the Er for the pain and they found an umbilical hernia that was fatty, and a linear calicfication of transverse colon found wants to know if this is contributing to it as she has not found any origin to this issue. REPLACED BY [facility] Medical History (Updated 07/26/24 @ 14:[address] Leander Patel MD) Encounter to establish care Chronic abdominal pain Chronic constipation Hx of peripheral vascular disease Normal echocardiogram ( 05/18/16) Anemia Migraine headache Injury of head and neck Seizures Difficulty swallowing Difficulty chewing Non-smoker Shortness of breath on exertion Leg cramps History of stress test Chest pain Myasthenia gravis Surgical History (Updated 07/26/24 @ 13:56 by Renee Patrick MA) History of colonoscopy (04/02/22) Hx of appendectomy Hx of total hip arthroplasty Hx of thymectomy Family History Mother Heart disease Cervical cancer Father No problems noted. Social History household members: children current occupational status: disabled pets and animals: Yes pets and animals: dog(s) and turtle(s) Smoking Status: Never smoker second hand exposure: Yes alcohol intake: never substance use type: does not use caffeine: Yes (1 cup coffee daily on avg) Type: coffee do you feel safe at home: Yes HPI HPI Chief Complaint: Establish care. Constipation Details: DOUG FLANAGAN, is a 33 F who presents to the office today to establish care. Also has some concerns. She reports a chronic history of constipation which has been ongoing for many years. Has had abdominal pelvic imaging and colonoscopy which did not suggest any acute concerns. Over the years, has taken MiraLAX, lactulose, Dulcolax recently prune lax which have not been effective. Of all these medications, prophylaxis helped somewhat but has significant side effects after she takes this. Since is the only one that helps somewhat she has continued to take it after every coup (more content not included)... Normal [facility] Neurology Visit Reporton Neurology Visit Report [facility] [address], [address] [place] [address] OFFICE VISIT Date of Service: 07/06/24 MR#: [id number] Acct: [id number] Name: DOUG FLANAGAN Rep #: [id number] : 1990 Provider: Dr. Kendall jack MD Age/Sex: 33/F Location[place] [facility] [email or web address] Status: Signed with Addenda ADDENDUM by Dr. Kendall Encarnacion MD on 08/21/24 at 1608 Addendum Addendum (08/21/2024): The patient had a complex partial seizure last week 15 minutes after consuming capsules for a Sitz marker study. She was seen in the emergency room. A BMP and CBC were unremarkable. She has been compliant with her lamotrigine therapy. Lamotrigine level (08/05/2024): 16.3 (in therapeutic range) TSH, free T4, CMP, ammonia, CBC (08/05/2024): Bicarb 17.4 (low) CBC, BMP (08/18/2024): Bicarb 19.6 (low), glucose 114 (high) A lamotrigine level will be checked. 08/21/24 1602 Date Kendall Encarnacion MD cc: * Signed ADDENDUM by Dr. Kendall Encarnacion MD on 07/25/24 at 1622 HPI Details: DOUG FLANAGAN, is a 33 F who presents to the office today for Assessment and Plan Assessment and Plan (1) Epilepsy: Status: Chronic Qualifiers: Epilepsy type: unspecified (2) Myasthenia gravis: Status: Acute (3) Anxiety: Status: Acute (4) Hyperammonemia: Status: Acute Orders: Orders Electroencephalogram (EEG) 07/18/24 G40.909 - Epilepsy, unspecified, not intractable, without status epilepticus Lamotrigine (Lamictal) Level 07/06/24 G40.909 - Epilepsy, unspecified, not intractable, without status epilepticus Miscellaneous Lab Procedure 07/06/24 G40.909 - Epilepsy, unspecified, not intractable, without status epilepticus CBC W/Diff, Automated 07/06/24 G40.909 - Epilepsy, unspecified, not intractable, without status epilepticus, G70.00 - Myasthenia gravis without (acute) exacerbation Comprehensive Metabolic Profil 07/06/24 G40.909 - Epilepsy, unspecified, not intractable, without status epilepticus Ammonia 07/06/24 G40.909 - Epilepsy, unspecified, not intractable, without status epilepticus Medications: New escitalopram oxalate (Lexapro) 10 mg PO QHS 30 tabs 5RF lactulose 20 grams (30 mL) PO DAILY 946 mL 5RF Changed From zonisamide 200 mg (2 x 100 mg) PO QAM 60 caps 4RF seizures To zonisamide Take 2 capsules orally every morning and 3 capsules every evening. 150 caps 5RF seizures Refilled lamotrigine ER 250 mg PO BID 60 tabs 5RF seizures ravulizumab-cwvz (Ultomiris) 3300 mg IV infusion over 1 hour every 8 weeks. 33 mL 2RF Addendum Addendum (07/25/2024): The patient reports having a side effect of constipation to lactulose. Lactulose will be discontinued. 07/25/24 1622 Date Kendall Encarnacion MD cc: * Signed [facility] HPI Chief Complaint: Details: Interim History: Doug returns for follow-up visit. She has a history of myasthenia gravis, epilepsy, anxiety disorder and posttraumatic stress disorder. She began having seizures when she was 11 years old. Her seizures have generally been generalized seizures without preceding aura. She exhibits clonic activity during her seizures. She has postictal anger and lethargy. She has associated tongue biting. She does not have associated urinary incontinence. Her seizures typically last 2 to 3 minutes. For seizures lasting greater than 3 minutes she has used Valtoco nasal spray. She had a concussion as a result of a fall when she was 9 years old. She generally has had seizures about twice per year. When she was 12 years old, levetiracetam was initiated however this caused side effects of suicidal ideations and hallucinations. She was then switched to Depakote and oxcarbazepine. Oxcarbazepine was then discontinued. Depakote was initially effective then lost efficacy. When she was 21 years old, she was switched from Depakote to phenytoin however this caused a side effect of hallucinations. When she was 22 years old, lamotrigine was initiated and this was of moderate benefit in controlling her seizures. Zonisamide was then initiated and her seizure control improved. A retrial of oxcarbazepine caused an increase in her seizure frequency. She has had infrequent complex partial seizures (manifesting by staring, loss of contact with her surroundings and minor muscle twitching). She had a complex partial seizure in March 2024 and her dose of lamotrigine was increased to lamotrigine ER 250 mg twice daily. She has had no further seizures. Her last seizure prior to March 2024 was in 2022. She reports having episodes of memory lapse however during these episodes she is able to converse and perform regular activities. She describes an example of an episode as walking up the stairs and not recalling the walk up the stairs. In 2018, she (more content not included)... Normal [facility] Absolute neutrophil countOrd ered By: Kendall Encarnacion on 04-17-2024 Neutrophils (Bld) [#/Vol] 5.3 10*3/uL 2.0-7.7 [facility] Albumin to globulin ratioOrd ered By: Kendall Encarnacion on 04-17-2024 Albumin/Globulin [Mass ratio] 1.0 {ratio} 0.9-2.4 [facility] Ammoniaon 04-17-2024 Ammonia (P) [Moles/Vol] 33.0 umol/L High [facility] Comment on above: Performed By: #### L 501.5000, L501.3620 #### [facility] [address] [place], [address] Basophil percentageOrdered B y: Kendall Encarnacion on 04-17-2024 Basophils/100 WBC (Bld) 0.7 % 0-1 [facility] Bilirubin, totalOrdered By: Kendall Encarnacion on 04-17-2024 Bilirubin [Mass/Vol] 0.50 mg/dL 0.20-1.00 [facility] Comment on above: For patients on eltr ombopag therapy, use of Dimension [place] TBIL is not recommended. Blood urea nitrogen (BUN)/cr eatinine ratioOrdered By: Kendall Encarnacion on 04-17-2024 Urea nitrogen/Creatinine [Mass ratio] 11.0 mg/mg 02-19 [facility] CBC W/Diff, Automatedon 04-02 Absolute Lymph 1.36 X10 3/uL Normal 0.83-4.51 [facility] Comment on above: Performed By: #### L 501.080 #### [facility] [address] [place], [address] Absolute Neut 5.3 X10 3/uL Normal 2.0-7.7 [facility] Comment on above: Performed By: #### L 501.080 #### [facility] [address] [place], [address] Basophils/100 WBC (Bld) 0.7 % Normal 0-1 [facility] Comment on above: Performed By: #### L 501.080 #### [facility] [address] [place], [address] Eosinophils/100 WBC (Bld) 1.9 % Normal 0-5 [facility] Comment on above: Performed By: #### L 501.080 #### [facility] [address] [place], [address] Erythrocyte distribution width (RBC) [Ratio] 13.1 % Normal 11.6-14.6 [facility] Comment on above: Performed By: #### L 501.080 #### [facility] [address] [place], [address] Hematocrit (Bld) [Volume fraction] 44.7 % Normal 37-47 [facility] Comment on above: Performed By: #### L 501.080 #### [facility] [address] [place], [address] Hemoglobin (Bld) [Mass/Vol] 14.6 g/dL Normal 12.0-15.0 [facility] Comment on above: Performed By: #### L 501.080 #### [facility] [address] [place], [address] IG% 0.300 Normal 0.0-0.9 [facility] Comment on above: Result Comment: IG% - Immature Granulocytes (promyelocytes, myelocytes and metamyelocytes) > 1% indicates that a LEFT SHIFT is Present. Performed By: #### L 501.080 #### [facility] [address] [place], [address] Lymphocytes/100 WBC (Bld) 18.7 % Low 19-41 [facility] Comment on above: Performed By: #### L 501.080 #### [facility] [address] [place], [address] MCH (RBC) [Entitic mass] 28.6 pg Normal 27.0-32.0 [facility] Comment on above: Performed By: #### L 501.080 #### [facility] [address] [place], [address] MCHC (RBC) [Mass/Vol] 32.7 g/dL Normal 32-36 [facility] Comment on above: Performed By: #### L 501.080 #### [facility] [address] [place], [address] MCV (RBC) [Entitic vol] 87.5 fL Normal 81-99 [facility] Comment on above: Performed By: #### L 501.080 #### [facility] [address] [place], [address] Monocytes/100 WBC (Bld) 6.2 % Normal 0-10 [facility] Comment on above: Performed By: #### L 501.080 #### [facility] [address] [place], [address] Neutrophils/100 WBC (Bld) 72.2 % High 47-70 [facility] Comment on above: Performed By: #### L 501.080 #### [facility] [address] [place], [address] Nucleated RBC (Bld) [#/Vol] 0 10*3/uL Normal 0-5 [facility] Comment on above: Performed By: #### L 501.080 #### [facility] [address] [place], [address] Platelet mean volume (Bld) [Entitic vol] 9.1 fL Normal 6.2-12.0 [facility] Comment on above: Performed By: #### L 501.080 #### [facility] [address] [place], [address] Platelets (Bld) [#/Vol] 284 10*3/uL Normal 150-450 [facility] Comment on above: Performed By: #### L 501.080 #### [facility] [address] [place], [address] RBC (Bld) [#/Vol] 5.11 10*6/uL Normal 4.2-5.4 [facility] Comment on above: Performed By: #### L 501.080 #### [facility] [address] [place], [address] RDW SD 41.7 fl Normal 35.1-43.9 [facility] Comment on above: Performed By: #### L 501.080 #### [facility] [address] [place], [address] WBC (Bld) [#/Vol] 7.3 10*3/uL Normal 4.4-11.0 [facility] Comment on above: Performed By: #### L 501.080 #### [facility] [address] [place], [address] Carbon dioxide measurementOr dered By: Kendall Encarnacion on 04-17-2024 CO2 [Moles/Vol] 21.0 mmol/L 21.0-32.0 [facility] Chloride measurementOrdered By: Kendall Encarnacion on 04-17-2024 Chloride [Moles/Vol] 112 mmol/L High 98-107 [facility] Comprehensive Metabolic Prof ilon 04-17-2024 Albumin [Mass/Vol] 4.1 g/dL Normal 3.2-5.0 [facility] Comment on above: Performed By: #### L 501.5000, L501.3620 #### [facility] [address] [place], [address] Albumin/Globulin [Mass ratio] 1.0 {ratio} Normal 0.9-2.4 [facility] Comment on above: Performed By: #### L 501.5000, [id number] #### [facility] [address] [place], [address] ALK P 111 U/L Normal 45-117 [facility] Comment on above: Performed By: #### L 501.5000, L501.3620 #### [facility] [address] [place], [address] ALT [Catalytic activity/Vol] 26 U/L Normal 13-56 [facility] Comment on above: Performed By: #### L 501.5000, L501.3620 #### [facility] [address] [place], [address] AST [Catalytic activity/Vol] 16 U/L Normal 15-37 [facility] Comment on above: Performed By: #### L 501.5000, L501.3620 #### [facility] [address] [place], [address] Bilirubin [Mass/Vol] 0.50 mg/dL Normal 0.20-1.00 [facility] Comment on above: Result Comment: For patients on eltrombopag therapy, use of Dimension [place] TBIL is not recommended. Performed By: #### L 501.5000, L501.3620 #### [facility] [address] [place], [address] BUN/CRE 11.0 RATIO Normal 10-20 [facility] Comment on above: Performed By: #### L 501.5000, L501.3620 #### [facility] [address] [place], [address] CA,Total 9.8 mg/dL Normal 8.5-10.1 [facility] Comment on above: Performed By: #### L 501.5000, L501.3620 #### [facility] [address] [place], [address] Chloride [Moles/Vol] 112 mmol/L High 98-107 [facility] Comment on above: Performed By: #### L 501.5000, [id number] #### [facility] [address] [place], [address] CO2 [Moles/Vol] 21.0 mmol/L Normal 21.0-32.0 [facility] Comment on above: Performed By: #### L 501.5000, [id number] #### [facility] [address] [place], [address] Creatinine [Mass/Vol] 0.91 mg/dL Normal 0.55-1.02 [facility] Comment on above: Result Comment: The validity of the calculated GFR GFRAA in patients over 70 years has not been determined. Clinical correlation is essential. Performed By: #### L 501.5000, L501.3620 #### [facility] [address] [place], [address] EST GFR - AA 90 mL/min Normal >60 [facility] Comment on above: Result Comment: Afri can Cymraes GFR Calc Performed By: #### L 501.5000, [id number] #### [facility] [address] [place], [address] GAP 7 Normal 5-15 [facility] Comment on above: Performed By: #### L 501.5000, [id number] #### [facility] [address] [place], [address] GFR/1.73 sq M.predicted among non-blacks MDRD (S/P/Bld) [Vol rate/Area] 74 mL/min/{1.73_m2} Normal >60 [facility] Comment on above: Result Comment: Non- GFR Calc Performed By: #### L 501.5000, L501.3620 #### [facility] [address] [place], [address] Globulin (S) [Mass/Vol] 4.0 g/dL Normal 2.2-4.2 [facility] Comment on above: Performed By: #### L 501.5000, [id number] #### [facility] [address] [place], [address] Glucose [Mass/Vol] 92 mg/dL Normal 74-106 [facility] Comment on above: Performed By: #### L 501.5000, [id number] #### [facility] [address] [place], [address] Potassium [Moles/Vol] 3.9 mmol/L Normal 3.5-5.1 [facility] Comment on above: Performed By: #### L 501.5000, [id number] #### [facility] [address] [place], [address] Sodium [Moles/Vol] 140 mmol/L Normal 136-145 [facility] Comment on above: Performed By: #### L 501.5000, [id number] #### [facility] [address] [place], [address] T PROT 8.1 g/dL Normal 6.4-8.2 [facility] Comment on above: Performed By: #### L 501.5000, [id number] #### [facility] [address] [place], [address] Urea nitrogen [Mass/Vol] 10 mg/dL Normal 7-18 [facility] Comment on above: Performed By: #### L 501.5000, [id number] #### [facility] [address] [place], [address] Eosinophil percentageOrdered By: Kendall Encarnacion on 04-17-2024 Eosinophils/100 WBC (Bld) 1.9 % 0-5 [facility] Erythrocyte distribution wid th ratioOrdered By: Kendall Encarnacion on 04-17-2024 Erythrocyte distribution width (RBC) [Ratio] 13.1 % 11.6-14.6 [facility] Erythrocyte distribution wid th standard deviationOrdered By: Kendall Encarnacion on 04-17-2024 Erythrocyte distribution width (RBC) [Entitic vol] 41.7 fL 35.1-43.9 [facility] Estimated glomerular filtrat ion rate (GFR) AmericanOrdered By: Kendall Encarnacion on 04-17-2024 Estimated GFR (MDRD) Amer 90 mL/min >60 [facility] Comment on above: GFR Calc Glomerular filtration rate ( GFR) estimationOrdered By: Kendall Encarnacion on 04-17-2024 Estimated GFR (MDRD) Non-Af Amer 74 mL/min >60 [facility] Comment on above: Non- GFR Calc Glucose measurementOrdered B y: Kendall Encarnacion on 04-17-2024 Glucose [Mass/Vol] 92 mg/dL 74-106 [facility] Hematocrit Auto (Bld) [Volum e fraction]Ordered By: Kendall Encarnacion on 04-17-2024 Hematocrit (Bld) [Volume fraction] 44.7 % 37-47 [facility] Hemoglobin measurementOrdere d By: Kendall Encarnacion on 04-17-2024 Hemoglobin (Bld) [Mass/Vol] 14.6 g/dL 12.0-15.0 [facility] Immature granulocytes/100 WB C Auto (Bld)Ordered By: Kendall Encarnacion on 04-17-2024 Immature granulocytes/100 WBC (Bld) 0.300 % 0.0-0.9 [facility] Comment on above: IG% - Immature Granu locytes (promyelocytes, myelocytes and metamyelocytes) > 1% indicates that a LEFT SHIFT is Present. Laboratory - Chemistry and C hemistry - challengeOrdered By: Kendall Encarnacion on 04-17-2024 AST [Catalytic activity/Vol] 16 U/L 15-37 [facility] Lymphocytes Auto (Unsp spec) [#/Vol]Ordered By: Kendall Encarnacion on 04-17-2024 Lymphocytes (Bld) [#/Vol] 1.36 10*3/uL 0.83-4.51 [facility] Lymphocytes/100 WBC Auto (Un sp spec)Ordered By: Kendall Encarnacion on 04-17-2024 Lymphocytes/100 WBC (Bld) 18.7 % Low 19-41 [facility] MCV (mean corpuscular volume ) determinationOrdered By: Kendall Encarnacion on 04-17-2024 MCV (RBC) [Entitic vol] 87.5 fL 81-99 [facility] Mean corpuscular hemoglobin (MCH) determinationOrdered By: Kendall Encarnacion on 04-17-2024 MCH (RBC) [Entitic mass] 28.6 pg 27.0-32.0 [facility] Mean corpuscular hemoglobin concentration (MCHC) determinationOrdered By: Kendall Encarnacion on 04-17-2024 MCHC (RBC) [Mass/Vol] 32.7 g/dL 32-36 [facility] Mean platelet volume determi nationOrdered By: Kendall Encarnacion on 04-17-2024 Platelet mean volume (Bld) [Entitic vol] 9.1 fL 6.2-12.0 [facility] Monocyte percentageOrdered B y: Kendall Encarnacion on 04-17-2024 Monocytes/100 WBC (Bld) 6.2 % 0-10 [facility] Neutrophil percentageOrdered By: Kendall Encarnacion on 04-17-2024 Neutrophils/100 WBC (Bld) 72.2 % High 47-70 [facility] Nucleated red blood cell per centageOrdered By: Kendall Encarnacion on 04-17-2024 Nucleated RBC/100 WBC (Bld) [Ratio] 0 % 0-5 [facility] Platelet countOrdered By: Ra torey Encarnacion on 04-17-2024 Platelets (Bld) [#/Vol] 284 10*3/uL 150-450 [facility] Potassium measurementOrdered By: Kendall Encarnacion on 04-17-2024 Potassium [Moles/Vol] 3.9 mmol/L 3.5-5.1 [facility] RBC Auto (Bld) [#/Vol]Ordere d By: Kendall Encarnacion on 04-17-2024 RBC (Bld) [#/Vol] 5.11 10*6/uL 4.2-5.4 [facility] Serum anion gap measurementO rdered By: Kendall Encarnacion on 04-17-2024 Anion gap [Moles/Vol] 7 mmol/L 5-15 [facility] Serum globulin measurementOr dered By: Kendall Encarnacion on 04-17-2024 Globulin (S) [Mass/Vol] 4.0 g/dL 2.2-4.2 [facility] Serum or plasma alanine diallo otransferase (ALT) measurementOrdered By: Kendall Encarnacion on 04-17-2024 ALT [Catalytic activity/Vol] 26 U/L 13-56 [facility] Serum or plasma albumin traci urement (mass/volume)Ordered By: Kendall Encarnacion on 04-17-2024 Albumin [Mass/Vol] 4.1 g/dL 3.2-5.0 [facility] Serum or plasma alkaline abby sphatase measurementOrdered By: Kendall Encarnacion on 04-17-2024 ALP [Catalytic activity/Vol] 111 U/L 45-117 [facility] Serum or plasma calcium traci urement (mass/volume)Ordered By: Kendall Encarnacion on 04-17-2024 Calcium [Mass/Vol] 9.8 mg/dL 8.5-10.1 [facility] Serum or plasma creatinine m easurement (mass/volume)Ordered By: Kendall Encarnacion on 04-17-2024 Creatinine [Mass/Vol] 0.91 mg/dL 0.55-1.02 [facility] Comment on above: The validity of the calculated GFR & GFRAA in patients over 70 years has not been determined. Clinical correlation is essential. Serum or plasma urea nitroge n measurement (mass/volume)Ordered By: Kendall Encarnacion on 04-17-2024 Urea nitrogen [Mass/Vol] 10 mg/dL 7-18 [facility] Sodium levelOrdered By: Chas Encarnacion on 04-17-2024 Sodium [Moles/Vol] 140 mmol/L 136-145 [facility] Total proteinOrdered By: Reji Encarnacion on 04-17-2024 Protein [Mass/Vol] 8.1 g/dL 6.4-8.2 [facility] Venous blood ammonia measure mentOrdered By: Kendall Encarnacion on 04-17-2024 Ammonia (P) [Moles/Vol] 33.0 umol/L High 11-32 [facility] [facility] White blood cell (WBC) count Ordered By: Kendall Encarnacion on 04-17-2024 WBC (Bld) [#/Vol] 7.3 10*3/uL 4.4-11.0 [facility] Neurology Visit Reporton Neurology Visit Report [facility] [address], [address] [place] [address] OFFICE VISIT Date of Service: 04/12/24 MR#: [id number] Acct: [id number] Name: DOUG FLANAGAN Rep #: [id number] : 1990 Provider: Dr. Kendall jack MD Age/Sex: 33/F Location[place] [facility] [place] Status: Signed with Addenda ADDENDUM by Dr. Kendall Encarnacion MD on 05/14/24 at 1602 Addendum Addendum (05/14/24): CBC with diff, CMP (04/17/24): unremarkable. 05/14/24 1602 Date Kendall Encarnacion MD cc: * Signed HPI HPI Chief Complaint: Establish Care Details: History: The patient is a 33-year-old right-handed woman with a past medical history of myasthenia gravis, epilepsy, anxiety disorder and posttraumatic stress disorder who presents for evaluation of her myasthenia gravis and epilepsy. She began having seizures when she was 11 years old. Her seizures have generally been generalized seizures without preceding aura. She exhibits clonic activity during her seizures. She has postictal anger and lethargy. She has associated tongue biting. She does not have associated urinary incontinence. Her seizures last 2 to 3 minutes each typically. For seizures lasting greater than 3 minutes she has used Valtoco nasal spray. She had a concussion as a result of a fall when she was 9 years old. She generally has had seizures about twice per year. When she was 12 years old, levetiracetam was initiated however this caused side effects of suicidal ideations and hallucinations. She was then switched to Depakote and oxcarbazepine. Oxcarbazepine was then discontinued. Depakote was initially effective then lost efficacy. When she was 21 years old she was switched from Depakote to phenytoin however this caused a side effect of hallucinations. When she was 22 years old lamotrigine was initiated and this was of moderate benefit in controlling her seizures. Zonisamide was then initiated and her seizure control has improved. A retrial of oxcarbazepine caused an increase in her seizure frequency. She is now taking lamotrigine and zonisamide. She has had infrequent complex partial seizures (manifesting by staring, loss of contact with her surroundings and minor muscle twitching). She had a complex partial seizure in March 2024 and her dose of lamotrigine was increased to lamotrigine ER 250 mg twice daily. She has had no further seizures. Her last seizure prior to March 2024 was in 2022. In 2017, she began to exhibit weakness in the arms and legs and dysarthria. She also had diplopia. On further evaluation, she was diagnosed with generalized myasthenia gravis. ACH receptor modulating antibody, ACH receptor antibody and ACH receptor blocking antibody were all positive. Over the years she has had fluctuating weakness in her upper and lower extremities. She has not had ptosis. She has chronic fatigue. She has not had a myasthenic crisis requiring intubation though she did have a period of marked increased generalized weakness and some breathing difficulty for which she required supplemental oxygen for a period of time in 2022. She was hospitalized for this episode and was treated with plasmapheresis. Mestinon caused tremulousness and an increase in her seizure frequency. Prednisone was not well-tolerated (caused tremulousness). CellCept was not effective. She underwent a thymectomy in 2018. In 2019 she was treated with Solaris and this was of only moderate benefit. Ultomiris was initiated in 2021 and this was of significant benefit for her myasthenic symptoms. Her myasthenic crisis in 2022 occurred during a period that she was not receiving Ultomiris. Ultomiris was resumed later in 2022 and has been well- tolerated. She reports that she had a meningococcal vaccine and hepatitis vaccine in 2022. She uses a Mirena IUD. She is not sexually active. She is performing exercises on her own and reports that she has been stable with regard to her myasthenia gravis and that her strength is improved compared to her prior baseline. Her last treatment with Ultomiris was in February 2024. Past Medical History: As above. There is no history of hypertension, diabetes mellitus, heart disease, lung disease, stroke, thyroid disease, cancer, renal disease, sleep apnea, or hyperlipidemia. Social History: The patient does not smoke tobacco. There is no history of alcohol abuse or illicit drug use. Family History: There is no family history of cerebral aneurysm or seizure. The patient's aunt had epilepsy. Review of Systems: As above. The patient has not had any recent fever, rash, or urinary problems. She has had an intentional 15 pound weight loss over the past 7 months. She experiences occasional mild chest discomfort and shortness of breath due to pleurisy that occurs with weather change. She has occasional constipation. She denies having depress (more content not included)... [facility] [place] [facility] [place] Normal [facility] Comment on above: Order Comment: DAMIR Velez MT [id number] ZONISAMIDE Result Comment: TEST RESULTS LIMITS Zonisamide(Zonegran), Serum Zonisamide 31.8 ug/mL 10.0-40.0 Detection Limit = 2.0 TESTING PERFORMED AT [facility]. ORIGINAL REPORT ON FILE IN LAB CONTAINS ADDITIONAL TEST SITE INFORMATION. Performed By: #### L 801.1541, [id number] #### [facility] [address] [place], [place], [address] Lamotrigine (Lamictal) Level on 03-15-2024 LAMOTRIGINE 7.6 ug/mL Normal 2.0-20.0 [facility] Comment on above: Result Comment: Dete ction Limit = 1.0 Performed at: [address] [id number] Conveyor Worker: Dakota Beal MD, Phone: [phone] Performed By: #### L 801.1541, [id number] #### [facility] [address] [place], [address] CBC W/Diff, Automatedon 09-3 0-2023 Absolute Lymph 1.43 X10 3/uL Normal 0.83-4.51 [facility] Comment on above: Performed By: #### L 501.080 #### [facility] [address] [place], [address] Absolute Neut 5.0 X10 3/uL Normal 2.0-7.7 [facility] Comment on above: Performed By: #### L 501.080 #### [facility] [address] [place], [address] Basophils/100 WBC (Bld) 0.6 % Normal 0-1 [facility] Comment on above: Performed By: #### L 501.080 #### [facility] [address] [place], [address] Eosinophils/100 WBC (Bld) 1.7 % Normal 0-5 [facility] Comment on above: Performed By: #### L 501.080 #### [facility] [address] [place], [address] Erythrocyte distribution width (RBC) [Ratio] 12.8 % Normal 11.6-14.6 [facility] Comment on above: Performed By: #### L 501.080 #### [facility] [address] [place], [address] Hematocrit (Bld) [Volume fraction] 44.1 % Normal 37-47 [facility] Comment on above: Performed By: #### L 501.080 #### [facility] [address] [place], [address] Hemoglobin (Bld) [Mass/Vol] 14.3 g/dL Normal 12.0-15.0 [facility] Comment on above: Performed By: #### L 501.080 #### [facility] [address] [place], [address] IG% 0.400 Normal 0.0-0.9 [facility] Comment on above: Result Comment: IG% - Immature Granulocytes (promyelocytes, myelocytes and metamyelocytes) > 1% indicates that a LEFT SHIFT is Present. Performed By: #### L 501.080 #### [facility] [address] [place], [address] Lymphocytes/100 WBC (Bld) 20.4 % Normal 19-41 [facility] Comment on above: Performed By: #### L 501.080 #### [facility] [address] [place], [address] MCH (RBC) [Entitic mass] 28.7 pg Normal 27.0-32.0 [facility] Comment on above: Performed By: #### L 501.080 #### [facility] [address] [place], [address] MCHC (RBC) [Mass/Vol] 32.4 g/dL Normal 32-36 [facility] Comment on above: Performed By: #### L 501.080 #### [facility] [address] [place], [address] MCV (RBC) [Entitic vol] 88.6 fL Normal 81-99 [facility] Comment on above: Performed By: #### L 501.080 #### [facility] [address] [place], [address] Monocytes/100 WBC (Bld) 5.3 % Normal 0-10 [facility] Comment on above: Performed By: #### L 501.080 #### [facility] [address] [place], [address] Neutrophils/100 WBC (Bld) 71.6 % High 47-70 [facility] Comment on above: Performed By: #### L 501.080 #### [facility] [address] [place], [address] Nucleated RBC (Bld) [#/Vol] 0 10*3/uL Normal 0-5 [facility] Comment on above: Performed By: #### L 501.080 #### [facility] [address] [place], [address] Platelet mean volume (Bld) [Entitic vol] 9.0 fL Normal 6.2-12.0 [facility] Comment on above: Performed By: #### L 501.080 #### [facility] [address] [place], [address] Platelets (Bld) [#/Vol] 281 10*3/uL Normal 150-450 [facility] Comment on above: Performed By: #### L 501.080 #### [facility] [address] [place], [address] RBC (Bld) [#/Vol] 4.98 10*6/uL Normal 4.2-5.4 [facility] Comment on above: Performed By: #### L 501.080 #### [facility] [address] [place], [address] RDW SD 41.2 fl Normal 35.1-43.9 [facility] Comment on above: Performed By: #### L 501.080 #### [facility] [address] [place], [address] WBC (Bld) [#/Vol] 7.0 10*3/uL Normal 4.4-11.0 [facility] Comment on above: Performed By: #### L 501.080 #### [facility] [address] [place], [address] Comprehensive Metabolic Prof [facility] 09-30-2024 Albumin [Mass/Vol] 4.0 g/dL Normal 3.2-5.0 [facility] Comment on above: Performed By: #### L 501.080 #### [facility] [address] [place], [address] Albumin/Globulin [Mass ratio] 1.1 {ratio} Normal 0.9-2.4 [facility] Comment on above: Performed By: #### L 501.080 #### [facility] [address] [place], [address] ALK P 113 U/L Normal 45-117 [facility] Comment on above: Performed By: #### L 501.080 #### [facility] [address] [place], [address] ALT [Catalytic activity/Vol] 19 U/L Normal 13-56 [facility] Comment on above: Performed By: #### L 501.080 #### [facility] [address] [place], [address] AST [Catalytic activity/Vol] 12 U/L Low 15-37 [facility] Comment on above: Performed By: #### L 501.080 #### [facility] [address] [place], [address] Bilirubin [Mass/Vol] 0.70 mg/dL Normal 0.20-1.00 [facility] Comment on above: Result Comment: For patients on eltrombopag therapy, use of Dimension [place] TBIL is not recommended. Performed By: #### L 501.080 #### [facility] [address] [place], [address] BUN/CRE 10.5 RATIO Normal 10-20 [facility] Comment on above: Performed By: #### L 501.080 #### [facility] [address] [place], [address] CA,Total 9.5 mg/dL Normal 8.5-10.1 [facility] Comment on above: Performed By: #### L 501.080 #### [facility] [address] [place], [address] Chloride [Moles/Vol] 110 mmol/L High 98-107 [facility] Comment on above: Performed By: #### L 501.080 #### [facility] [address] [place], [address] CO2 [Moles/Vol] 22.0 mmol/L Normal 21.0-32.0 [facility] Comment on above: Performed By: #### L 501.080 #### [facility] [address] [place], [address] Creatinine [Mass/Vol] 0.86 mg/dL Normal 0.55-1.02 [facility] Comment on above: Result Comment: The validity of the calculated GFR GFRAA in patients over 70 years has not been determined. Clinical correlation is essential. Performed By: #### L 501.080 #### [facility] [address] [place], [address] EST GFR - AA 96 mL/min Normal >60 [facility] Comment on above: Result Comment: Afri can Cymraes GFR Calc Performed By: #### L 501.080 #### [facility] [address] [place], [address] GAP 9 Normal 5-15 [facility] Comment on above: Performed By: #### L 501.080 #### [facility] [address] [place], [address] GFR/1.73 sq M.predicted among non-blacks MDRD (S/P/Bld) [Vol rate/Area] 80 mL/min/{1.73_m2} Normal >60 [facility] Comment on above: Result Comment: Non- GFR Calc Performed By: #### L 501.080 #### [facility] [address] [place], [address] Globulin (S) [Mass/Vol] 3.8 g/dL Normal 2.2-4.2 [facility] Comment on above: Performed By: #### L 501.080 #### [facility] [address] [place], [address] Glucose [Mass/Vol] 94 mg/dL Normal 74-106 [facility] Comment on above: Performed By: #### L 501.080 #### [facility] [address] [place], [address] Potassium [Moles/Vol] 3.5 mmol/L Normal 3.5-5.1 [facility] Comment on above: Performed By: #### L 501.080 #### [facility] [address] [place], [address] Sodium [Moles/Vol] 141 mmol/L Normal 136-145 [facility] Comment on above: Performed By: #### L 501.080 #### [facility] [address] [place], [address] T PROT 7.8 g/dL Normal 6.4-8.2 [facility] Comment on above: Performed By: #### L 501.080 #### [facility] [address] [place], [address] Urea nitrogen [Mass/Vol] 9 mg/dL Normal 7-18 [facility] Comment on above: Performed By: #### L 501.080 #### [facility] [address] [place], [address] Thyroid Stim Hormone (TSH)on 01-31-2024 TSH 1.620 uIU/mL Normal 0.358-3.74 0 [facility] Comment on above: Performed By: #### L 501.080 #### [facility] [address] [place], [place], [address] Vitamin B12on 01-31-2024 Cobalamin (Vitamin B12) [Mass/Vol] 350 pg/mL Normal 211-911 [facility] Comment on above: Performed By: #### L 501.080 #### [facility] [address] [place], [place], [address] CNOVon 10-11-2023 CNOV Office Visit (UCTR ) -------- DOUG FLANAGAN ([id number]) 1990 F Date Time Provider Department 10/11/23 9:00 AM MAYA PUENTE [facility] During your visit today, we recorded the following information about you: Temperature Pulse Respiration Blood pressure 97.3 degrees 102/minute 16/minute 120/80 Weight 75 kg Maya Puente APRN.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 This started 2 days ago. Has tried otc medication for relief. Symptoms are worsened by nothing. Denies possibility of being . nonsmoker. 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 escitalopram oxalate (LEXAPRO) 10 mg tablet Take 10 mg by mouth once daily. levonorgestrel (MIRENA) 20 mcg/24 hours (8 yrs) 52 mg IUD 1 Each by INTRAUTERINE route one time only. lamoTRIgine ER (LAMICTAL XR) 100 mg 24 hr tablet Take two (2.0) in AM and four(4.0) tablets at bedtime (Patient taking differently: Take two (1) in AM and four(4.0) tablets at bedtime) zonisamide (ZONEGRAN) 100 mg capsule Take 3 capsules by mouth once daily. acetaminophen (TYLENOL) 325 mg tablet Take 650 mg by mouth every 6 hours as needed. benzonatate (TESSALON PERLES) 100 mg capsule Take 1 capsule by mouth three times daily as needed for cough. peg 3350-Electrolytes (GOLYTELY) 236-22.74-6.74 -5.86 gram suspension Sip on it until gone (Patient not taking: Reported on 07/12/2022) apixaban (ELIQUIS) 5 mg tab(s) Take 5 mg by mouth twice daily. rOPINIRole (REQUIP) 0.5 mg tablet take 1 tablet by mouth 1-3 HOURS PRIOR TO BEDTIME OXcarbazepine (TRILEPTAL) 150 mg tablet Take 150 mg by mouth daily at bedtime. LORazepam (ATIVAN) 1 mg tablet take 1 tablet by mouth if needed for SEIZURE GERATER THAN 5 MINUTES DIRECTED (FOR 30 DAYS) FAMILY HISTORY Problem Relation Age of Onset Headache Mother Multiple Sclerosis Sister Headache Maternal Grandfather Seizures Maternal Aunt Traumatic epilepsy Colon Cancer No Family History Social History Tobacco Use Smoking status: Never Smokeless tobacco: Never Vaping Use Vaping Use: Never used Substance Use Topics Alcohol use: No Drug use: No Review of Systems Constitutional: Negative for fever. HENT: Positive for ear pain and sore throat. Negative for congestion, ear discharge and nosebleeds. Respiratory: Negative for cough, shortness of breath and wheezing. Musculoskeletal: Negative for neck pain. Objective Blood pressure 120/80, pulse 102, temperature 36.3 ?C (97.3 ?F), resp. rate 16, weight 75 kg (165 lb 5.5 oz), last menstrual period 03/18/2022, SpO2 98%. Physical Exam Constitutional: General: She is not in acute distress. Appearance: She is not toxic-appearing or diaphoretic. HENT: Head: Normocephalic and atraumatic. Right Ear: Hearing, tympanic membrane, ear canal and external ear normal. Left Ear: Hearing, tympanic membrane, ear canal and external ear normal. Nose: Nose normal. Mouth/Throat: Lips: [place]. Mouth: Mucous membranes are moist. Pharynx: Uvula midline. Posterior oropharyngeal erythema present. No pharyngeal swelling, oropharyngeal exudate or uvula swelling. Eyes: General: Lids are normal. No scleral icterus. Right eye: No discharge. Left eye: No discharge. Conjunctiva/sclera: Conjunctivae normal. Pupils: Pupils are equal, round, and reactive to light. Neck: Trachea: Trachea normal. Cardiovascular: Rate and Rhythm: Normal rate and regular rhythm. Heart sounds: Normal heart sounds. Pulmonary: Effort: Pulmonary eff (more content not included)... Normal [place] STREP A MOLECULAR (POC)on Procedural Control Valid [facility] Strep A (POCT) Negative Negative [facility] CBC AND ELECTRONIC DIFFon Basophils (Bld) [#/Vol] 0.04 10*3/uL Normal 0.00-0.15 [facility] Comment on above: Performed By: #### L [id number] #### [facility] (DEFAULT) [address] [place] [address] Basophils/100 WBC (Bld) 0.6 % Normal [facility] Comment on above: Performed By: #### L [id number] #### [facility] (DEFAULT) [address] [place] [address] DIFF STATUS Electronic Differential Normal [facility] Comment on above: Performed By: #### L [id number] #### [facility] (DEFAULT) [address] [place] [address] Eosinophils (Bld) [#/Vol] 0.11 10*3/uL Normal 0.00-0.42 [facility] Comment on above: Performed By: #### L [id number] #### [facility] (DEFAULT) [address] [address] Eosinophils/100 WBC (Bld) 1.6 % Normal [facility] Comment on above: Performed By: #### L [id number] #### [facility] (DEFAULT) [address] [place] [address] Hematocrit (Bld) [Volume fraction] 44.2 % Normal 34.9-44.3 [facility] Comment on above: Performed By: #### L [id number] #### [facility] (DEFAULT) [address] [address] Hemoglobin (Bld) [Mass/Vol] 14.2 g/dL Normal 11.4-15.2 [facility] Comment on above: Performed By: #### L [id number] #### [facility] (DEFAULT) [address] [address] Immature Grans % 0.3 % Normal [facility] Comment on above: Performed By: #### L [id number] #### [facility] (DEFAULT) [address] [address] Immature Grans Absolute < Normal <=0.08 [facility] Comment on above: Performed By: #### L [id number] #### [facility] (DEFAULT) [address] [place] [address] Lymphocytes (Bld) [#/Vol] 1.71 10*3/uL Normal 1.16-3.51 [facility] Comment on above: Performed By: #### L [id number] #### [facility] (DEFAULT) [address] [address] Lymphocytes/100 WBC (Bld) 24.4 % Normal [facility] Comment on above: Performed By: #### L [id number] #### [facility] (DEFAULT) [address] [address] MCV (RBC) [Entitic vol] 86.3 fL Normal 79.6-97.7 [facility] Comment on above: Performed By: #### L [id number] #### [facility] (DEFAULT) [address] [address] Mean Cell Hgb 27.7 pg Normal 25.9-33.9 [facility] Comment on above: Performed By: #### L [id number] #### [facility] (DEFAULT) [address] [address] Mean Cell Hgb Conc 32.1 g/dL Normal 31.4-35.9 [facility] Comment on above: Performed By: #### L [id number] #### [facility] (DEFAULT) [address] [place] [address] Monocytes (Bld) [#/Vol] 0.49 10*3/uL Normal 0.22-0.87 [facility] Comment on above: Performed By: #### L [id number] #### [facility] (DEFAULT) [address] [address] Monocytes/100 WBC (Bld) 7.0 % Normal [facility] Comment on above: Performed By: #### L [id number] #### [facility] (DEFAULT) [address] [address] Nucleated RBC 0.0 /100 WBC Normal <=0.2 [facility] Comment on above: Performed By: #### L [id number] #### [facility] (DEFAULT) [address] [place] [address] Platelet mean volume (Bld) [Entitic vol] 10.0 fL Normal 8.5-12.2 [facility] Comment on above: Performed By: #### L [id number] #### [facility] (DEFAULT) [address] [place] [address] Platelets (Bld) [#/Vol] 282 10*3/uL Normal 150-393 [facility] Comment on above: Performed By: #### L [id number] #### [facility] (DEFAULT) [address] [place] [address] RBC (Bld) [#/Vol] 5.12 10*6/uL High 3.91-5.04 [facility] Comment on above: Performed By: #### L [id number] #### [facility] (DEFAULT) [address] [place] [address] RBC Distribution 13.9 % Normal 10.8-14.9 [facility] Comment on above: Performed By: #### L [id number] #### [facility] (DEFAULT) [address] [place] [address] 36476 Segs + Bands Auto 66.1 % Normal [facility] Comment on above: Performed By: #### L [id number] #### [facility] (DEFAULT) [address] [place] [address] 15753 Segs + Bands,Absolute Auto 4.63 K/uL Normal 1.64-7.28 [facility] Comment on above: Performed By: #### L [id number] #### [facility] (DEFAULT) [address] [place] [address] 86831 WBC (Bld) [#/Vol] 7.00 10*3/uL Normal 3.99-11.19 [facility] Comment on above: Performed By: #### L [id number] #### [facility] (DEFAULT) [address] [place] [address] 74979 CMPN WITHOUT GLUCOSEon 08-11 Albumin [Mass/Vol] 4.8 g/dL 3.5 - 5.0 g/dL [facility] ALP [Catalytic activity/Vol] 100 U/L 32 - 126 U/L [facility] ALT [Catalytic activity/Vol] 17 U/L 9 - 48 U/L [facility] Anion gap [Moles/Vol] 16 mmol/L 7 - 17 mmol/L [facility] AST [Catalytic activity/Vol] 18 U/L 10 - 39 U/L [facility] Bilirubin [Mass/Vol] 0.4 mg/dL NINF - 1.5 mg/dL [facility] Calcium [Mass/Vol] 10.1 mg/dL 8.6 - 10. 5 mg/dL [facility] Chloride [Moles/Vol] 106 mmol/L 98 - 10 8 mmol/L [facility] CO2 [Moles/Vol] 22 mmol/L 21 - 31 mmol/L [facility] Creatinine [Mass/Vol] 0.82 mg/dL 0.50 - 1.20 mg/dL [facility] eGFR, CKD-EPI, Female - PINF [facility] Comment on above: Reported eGFR is bas ed on the CKD-EPI 2020 equation using creatinine, age, and sex. Potassium [Moles/Vol] 3.8 mmol/L 3.5 - 5.0 mmol/L [facility] Protein [Mass/Vol] 7.9 g/dL 6.4 - 8.3 g/dL [facility] Sodium [Moles/Vol] 140 mmol/L 135 - 145 mmol/L [facility] Urea nitrogen [Mass/Vol] 10 mg/dL 7 - 25 mg/dL [facility] Urea nitrogen/Creatinine [Mass ratio] 12 mg/mg [facility] Albumin [Mass/Vol] 4.8 g/dL Normal 3.5-5.0 [facility] Comment on above: Performed By: #### C MPNG #### [facility] (DEFAULT) [address] [place] [address] ALP [Catalytic activity/Vol] 100 U/L Normal 32-126 [facility] Comment on above: Performed By: #### C MPNG #### [facility] (DEFAULT) [address] [place] [address] 35048 ALT [Catalytic activity/Vol] 17 U/L Normal 9-48 [facility] Comment on above: Performed By: #### C MPNG #### [facility] (DEFAULT) [address] [place] [address] 91357 Anion gap [Moles/Vol] 16 mmol/L Normal 7-17 [facility] Comment on above: Performed By: #### C MPNG #### [facility] (DEFAULT) [address] [place] [address] 25226 AST [Catalytic activity/Vol] 18 U/L Normal 10-39 [facility] Comment on above: Performed By: #### C MPNG #### [facility] (DEFAULT) [address] [place] [address] 88307 Bilirubin [Mass/Vol] 0.4 mg/dL Normal <1.5 [facility] Comment on above: Performed By: #### C MPNG #### [facility] (DEFAULT) [address] [place] [address] 60984 Calcium [Mass/Vol] 10.1 mg/dL Normal 8.6-10.5 [facility] Comment on above: Performed By: #### C MPNG #### [facility] (DEFAULT) [address] [place] [address] 83169 Chloride [Moles/Vol] 106 mmol/L Normal 98-108 [facility] Comment on above: Performed By: #### C MPNG #### [facility] (DEFAULT) [address] [place] [address] 68809 CO2 [Moles/Vol] 22 mmol/L Normal 21-31 [facility] Comment on above: Performed By: #### C MPNG #### [facility] (DEFAULT) [address] [place] [address] 70078 Creatinine [Mass/Vol] 0.82 mg/dL Normal 0.50-1.20 [facility] Comment on above: Performed By: #### C MPNG #### [facility] (DEFAULT) [address] [place] [address] 99448 eGFR, CKD-EPI, Female > Normal >=60 [facility] Comment on above: Result Comment: Repo rted eGFR is based on the CKD-EPI 2020 equation using creatinine, age, and sex. Performed By: #### C MPNG #### [facility] (DEFAULT) [address] [place] [address] 82308 Potassium [Moles/Vol] 3.8 mmol/L Normal 3.5-5.0 [facility] Comment on above: Performed By: #### C MPNG #### [facility] (DEFAULT) [address] [place] [address] 78567 Protein [Mass/Vol] 7.9 g/dL Normal 6.4-8.3 [facility] Comment on above: Performed By: #### C MPNG #### [facility] (DEFAULT) [address] [place] [address] 97710 Sodium [Moles/Vol] 140 mmol/L Normal 135-145 [facility] Comment on above: Performed By: #### C MPNG #### [facility] (DEFAULT) [address] [place] [address] 79135 Urea nitrogen [Mass/Vol] 10 mg/dL Normal 7-25 [facility] Comment on above: Performed By: #### C MPNG #### [facility] (DEFAULT) [address] [place] [address] 43306 Urea nitrogen/Creatinine [Mass ratio] 12 mg/mg Normal [facility] Comment on above: Performed By: #### C MPNG #### [facility] (DEFAULT) [address] [place] [address] 92462 CBC AND ELECTRONIC DIFFon Basophils (Bld) [#/Vol] 0.05 10*3/uL 0.00 - 0.15 K/uL [facility] Basophils/100 WBC (Bld) 0.7 % [facility] Differential cell count method Nom (Bld) Electronic Differential O [facility] Eosinophils (Bld) [#/Vol] 0.11 10*3/uL 0.00 - 0.42 K/uL [facility] Eosinophils/100 WBC (Bld) 1.6 % [facility] Erythrocyte distribution width (RBC) [Ratio] 13.5 % 10.8 - 14.9 % [facility] Hematocrit (Bld) [Volume fraction] 41.6 % 34.9 - 44.3 % [facility] Hemoglobin (Bld) [Mass/Vol] 13.2 g/dL 11.4 - 15.2 g/dL [facility] Immature granulocytes (Bld) [#/Vol] K/uL NINF - 0.08 K/uL [facility] Immature granulocytes/100 WBC (Bld) 0.3 % [facility] Lymphocytes (Bld) [#/Vol] 1.66 10*3/uL 1.16 - 3.51 K/uL [facility] Lymphocytes/100 WBC (Bld) 23.7 % [facility] MCH (RBC) [Entitic mass] 26.5 pg 25.9 - 33.9 pg [facility] MCHC (RBC) [Mass/Vol] 31.7 g/dL 31.4 - 35.9 g/dL [facility] MCV (RBC) [Entitic vol] 83.5 fL 79.6 - 97.7 fL [facility] Monocytes (Bld) [#/Vol] 0.34 10*3/uL 0.22 - 0.87 K/uL [facility] Monocytes/100 WBC (Bld) 4.9 % [facility] Neutrophils (Bld) [#/Vol] 4.81 10*3/uL 1.64 - 7.28 K/uL [facility] Nucleated RBC/100 WBC (Bld) [Ratio] 0.0 % NINF [facility] Platelet mean volume (Bld) [Entitic vol] 10.3 fL 8.5 - 12.2 fL [facility] Platelets (Bld) [#/Vol] 346 10*3/uL 150 - 393 K/uL [facility] RBC (Bld) [#/Vol] 4.98 10*6/uL [facility] Segmented neutrophils/100 WBC (Bld) 68.8 % [facility] WBC (Bld) [#/Vol] 6.99 10*3/uL 3.99 - 11.19 K/uL [facility] Basophils (Bld) [#/Vol] 0.05 10*3/uL Normal 0.00-0.15 [facility] Comment on above: Order Comment: To be collected prior to each infusion while receiving Ravulizumab Performed By: #### L [id number] #### [facility] (DEFAULT) [address] [address] Basophils/100 WBC (Bld) 0.7 % Normal [facility] Comment on above: Order Comment: To be collected prior to each infusion while receiving Ravulizumab Performed By: #### L [id number] #### [facility] (DEFAULT) [address] [address] DIFF STATUS Electronic Differential Normal [facility] Comment on above: Order Comment: To be collected prior to each infusion while receiving Ravulizumab Performed By: #### L [id number] #### [facility] (DEFAULT) [address] [place] [address] 25681 Eosinophils (Bld) [#/Vol] 0.11 10*3/uL Normal 0.00-0.42 [facility] Comment on above: Order Comment: To be collected prior to each infusion while receiving Ravulizumab Performed By: #### L [id number] #### [facility] (DEFAULT) [address] [place] [address] 76260 Eosinophils/100 WBC (Bld) 1.6 % Normal [facility] Comment on above: Order Comment: To be collected prior to each infusion while receiving Ravulizumab Performed By: #### L [id number] #### [facility] (DEFAULT) [address] [address] Hematocrit (Bld) [Volume fraction] 41.6 % Normal 34.9-44.3 [facility] Comment on above: Order Comment: To be collected prior to each infusion while receiving Ravulizumab Performed By: #### L [id number] #### [facility] (DEFAULT) [address] [address] Hemoglobin (Bld) [Mass/Vol] 13.2 g/dL Normal 11.4-15.2 [facility] Comment on above: Order Comment: To be collected prior to each infusion while receiving Ravulizumab Performed By: #### L [id number] #### [facility] (DEFAULT) [address] [address] Immature Grans % 0.3 % Normal [facility] Comment on above: Order Comment: To be collected prior to each infusion while receiving Ravulizumab Performed By: #### L [id number] #### [facility] (DEFAULT) [address] [address] Immature Grans Absolute < Normal <=0.08 [facility] Comment on above: Order Comment: To be collected prior to each infusion while receiving Ravulizumab Performed By: #### L [id number] #### [facility] (DEFAULT) [address] [address] Lymphocytes (Bld) [#/Vol] 1.66 10*3/uL Normal 1.16-3.51 [facility] Comment on above: Order Comment: To be collected prior to each infusion while receiving Ravulizumab Performed By: #### L [id number] #### [facility] (DEFAULT) [address] [address] Lymphocytes/100 WBC (Bld) 23.7 % Normal [facility] Comment on above: Order Comment: To be collected prior to each infusion while receiving Ravulizumab Performed By: #### L [id number] #### [facility] (DEFAULT) [address] [address] MCV (RBC) [Entitic vol] 83.5 fL Normal 79.6-97.7 [facility] Comment on above: Order Comment: To be collected prior to each infusion while receiving Ravulizumab Performed By: #### L [id number] #### [facility] (DEFAULT) [address] [address] Mean Cell Hgb 26.5 pg Normal 25.9-33.9 [facility] Comment on above: Order Comment: To be collected prior to each infusion while receiving Ravulizumab Performed By: #### L [id number] #### [facility] (DEFAULT) [address] [address] Mean Cell Hgb Conc 31.7 g/dL Normal 31.4-35.9 [facility] Comment on above: Order Comment: To be collected prior to each infusion while receiving Ravulizumab Performed By: #### L [id number] #### [facility] (DEFAULT) [address] [address] Monocytes (Bld) [#/Vol] 0.34 10*3/uL Normal 0.22-0.87 [facility] Comment on above: Order Comment: To be collected prior to each infusion while receiving Ravulizumab Performed By: #### L [id number] #### [facility] (DEFAULT) [address] [address] Monocytes/100 WBC (Bld) 4.9 % Normal [facility] Comment on above: Order Comment: To be collected prior to each infusion while receiving Ravulizumab Performed By: #### L [id number] #### [facility] (DEFAULT) [address] [address] Nucleated RBC 0.0 /100 WBC Normal <=0.2 [facility] Comment on above: Order Comment: To be collected prior to each infusion while receiving Ravulizumab Performed By: #### L [id number] #### [facility] (DEFAULT) [address] [place] [address] 21718 Platelet mean volume (Bld) [Entitic vol] 10.3 fL Normal 8.5-12.2 [facility] Comment on above: Order Comment: To be collected prior to each infusion while receiving Ravulizumab Performed By: #### L [id number] #### [facility] (DEFAULT) [address] [place] [address] 79515 Platelets (Bld) [#/Vol] 346 10*3/uL Normal 150-393 [facility] Comment on above: Order Comment: To be collected prior to each infusion while receiving Ravulizumab Performed By: #### L [id number] #### [facility] (DEFAULT) [address] [place] [address] 53077 RBC (Bld) [#/Vol] 4.98 10*6/uL Normal 3.91-5.04 [facility] Comment on above: Order Comment: To be collected prior to each infusion while receiving Ravulizumab Performed By: #### L [id number] #### [facility] (DEFAULT) [address] [place] [address] 83867 RBC Distribution 13.5 % Normal 10.8-14.9 [facility] Comment on above: Order Comment: To be collected prior to each infusion while receiving Ravulizumab Performed By: #### L [id number] #### [facility] (DEFAULT) [address] [place] [address] 78303 Segs + Bands Auto 68.8 % Normal [facility] Comment on above: Order Comment: To be collected prior to each infusion while receiving Ravulizumab Performed By: #### L [id number] #### [facility] (DEFAULT) [address] [place] [address] 26495 Segs + Bands,Absolute Auto 4.81 K/uL Normal 1.64-7.28 [facility] Comment on above: Order Comment: To be collected prior to each infusion while receiving Ravulizumab Performed By: #### L [id number] #### [facility] (DEFAULT) [address] [place] [address] WBC (Bld) [#/Vol] 6.99 10*3/uL Normal 3.99-11.19 [facility] Comment on above: Order Comment: To be collected prior to each infusion while receiving Ravulizumab Performed By: #### L [id number] #### [facility] (DEFAULT) [address] [place] [address] CMPN WITHOUT GLUCOSEon 02-12 Albumin [Mass/Vol] 4.5 g/dL 3.5 - 5.0 g/dL [facility] ALP [Catalytic activity/Vol] 92 U/L 32 - 126 U/L [facility] ALT [Catalytic activity/Vol] 14 U/L 9 - 48 U/L [facility] Anion gap [Moles/Vol] 15 mmol/L 7 - 17 mmol/L [facility] AST [Catalytic activity/Vol] 14 U/L 10 - 39 U/L [facility] Bilirubin [Mass/Vol] 0.3 mg/dL NINF - 1.5 mg/dL [facility] Calcium [Mass/Vol] 9.4 mg/dL 8.6 - 10. 5 mg/dL [facility] Chloride [Moles/Vol] 108 mmol/L 98 - 10 8 mmol/L [facility] CO2 [Moles/Vol] 22 mmol/L 21 - 31 mmol/L [facility] Creatinine [Mass/Vol] 0.91 mg/dL 0.50 - 1.20 mg/dL [facility] eGFR, CKD-EPI, Female 83 - PINF [facility] Comment on above: Reported eGFR is bas ed on the CKD-EPI 2020 equation using creatinine, age, and sex. Potassium [Moles/Vol] 3.6 mmol/L 3.5 - 5.0 mmol/L [facility] Protein [Mass/Vol] 7.7 g/dL 6.4 - 8.3 g/dL [facility] Sodium [Moles/Vol] 141 mmol/L 135 - 145 mmol/L [facility] Urea nitrogen [Mass/Vol] 10 mg/dL 7 - 25 mg/dL [facility] Urea nitrogen/Creatinine [Mass ratio] 11 mg/mg [facility] Albumin [Mass/Vol] 4.5 g/dL Normal 3.5-5.0 [facility] Comment on above: Order Comment: To be collected prior to each infusion while receiving Ravulizumab Performed By: #### C MPNG #### [facility] (DEFAULT) [address] [place] [address] 49178 ALP [Catalytic activity/Vol] 92 U/L Normal 32-126 [facility] Comment on above: Order Comment: To be collected prior to each infusion while receiving Ravulizumab Performed By: #### C MPNG #### [facility] (DEFAULT) [address] [place] [address] 31405 ALT [Catalytic activity/Vol] 14 U/L Normal 9-48 [facility] Comment on above: Order Comment: To be collected prior to each infusion while receiving Ravulizumab Performed By: #### C MPNG #### [facility] (DEFAULT) [address] [place] [address] 49795 Anion gap [Moles/Vol] 15 mmol/L Normal 7-17 [facility] Comment on above: Order Comment: To be collected prior to each infusion while receiving Ravulizumab Performed By: #### C MPNG #### [facility] (DEFAULT) [address] [place] [address] 79890 AST [Catalytic activity/Vol] 14 U/L Normal 10-39 [facility] Comment on above: Order Comment: To be collected prior to each infusion while receiving Ravulizumab Performed By: #### C MPNG #### [facility] (DEFAULT) [address] [place] [address] 69143 Bilirubin [Mass/Vol] 0.3 mg/dL Normal <1.5 [facility] Comment on above: Order Comment: To be collected prior to each infusion while receiving Ravulizumab Performed By: #### C MPNG #### [facility] (DEFAULT) [address] [place] [address] 38720 Calcium [Mass/Vol] 9.4 mg/dL Normal 8.6-10.5 [facility] Comment on above: Order Comment: To be collected prior to each infusion while receiving Ravulizumab Performed By: #### C MPNG #### [facility] (DEFAULT) [address] [place] [address] 10415 Chloride [Moles/Vol] 108 mmol/L Normal 98-108 [facility] Comment on above: Order Comment: To be collected prior to each infusion while receiving Ravulizumab Performed By: #### C MPNG #### [facility] (DEFAULT) [address] [place] [address] 32617 CO2 [Moles/Vol] 22 mmol/L Normal 21-31 [facility] Comment on above: Order Comment: To be collected prior to each infusion while receiving Ravulizumab Performed By: #### C MPNG #### [facility] (DEFAULT) [address] [place] [address] 91740 Creatinine [Mass/Vol] 0.91 mg/dL Normal 0.50-1.20 [facility] Comment on above: Order Comment: To be collected prior to each infusion while receiving Ravulizumab Performed By: #### C MPNG #### [facility] (DEFAULT) [address] [place] [address] 71931 GFR/1.73 sq M.predicted among non-blacks MDRD (S/P/Bld) [Vol rate/Area] 85 mL/min/{1.73_m2} Normal >=60 [facility] Comment on above: Order Comment: To be collected prior to each infusion while receiving Ravulizumab Result Comment: Repo rted eGFR is based on the CKD-EPI 2020 equation using creatinine, age, and sex. Performed By: #### C MPNG #### [facility] (DEFAULT) [address] [address] Potassium [Moles/Vol] 3.6 mmol/L Normal 3.5-5.0 [facility] Comment on above: Order Comment: To be collected prior to each infusion while receiving Ravulizumab Performed By: #### C MPNG #### [facility] (DEFAULT) [address] [address] Protein [Mass/Vol] 7.7 g/dL Normal 6.4-8.3 [facility] Comment on above: Order Comment: To be collected prior to each infusion while receiving Ravulizumab Performed By: #### C MPNG #### [facility] (DEFAULT) [address] [address] Sodium [Moles/Vol] 141 mmol/L Normal 135-145 [facility] Comment on above: Order Comment: To be collected prior to each infusion while receiving Ravulizumab Performed By: #### C MPNG #### [facility] (DEFAULT) [address] [address] Urea nitrogen [Mass/Vol] 10 mg/dL Normal 7-25 [facility] Comment on above: Order Comment: To be collected prior to each infusion while receiving Ravulizumab Performed By: #### C MPNG #### [facility] (DEFAULT) [address] [address] Urea nitrogen/Creatinine [Mass ratio] 11 mg/mg Normal [facility] Comment on above: Order Comment: To be collected prior to each infusion while receiving Ravulizumab Performed By: #### C MPNG #### [facility] (DEFAULT) [address] [address] No Panel Informationon 12-19 Miscellaneous Test See comment [facility] Comment on above: TEST RESULT LIMITSLa motrigine, Serum 8.5 ug/mL 2.0-20.0 Detection Limit = 1.0 TESTING PERFORMED AT [facility]. ORIGINAL REPORT ON FILE IN LAB CONTAINS ADDITIONAL TEST SITE INFORMATION. CBC,PLATELETSon 11-02-2022 Hematocrit (Bld) [Volume fraction] 35.8 % Normal 34.9-44.3 [facility] Comment on above: Performed By: #### H EMOGC #### [facility] (DEFAULT) [address] [address] Hemoglobin (Bld) [Mass/Vol] 11.7 g/dL Normal 11.4-15.2 [facility] Comment on above: Performed By: #### H EMOGC #### [facility] (DEFAULT) [address] [address] MCV (RBC) [Entitic vol] 83.3 fL Normal 79.6-97.7 [facility] Comment on above: Performed By: #### H EMOGC #### [facility] (DEFAULT) [address] [address] Mean Cell Hgb 27.2 pg Normal 25.9-33.9 [facility] Comment on above: Performed By: #### H EMOGC #### [facility] (DEFAULT) [address] [address] Mean Cell Hgb Conc 32.7 g/dL Normal 31.4-35.9 [facility] Comment on above: Performed By: #### H EMOGC #### [facility] (DEFAULT) [address] [address] Platelet mean volume (Bld) [Entitic vol] 9.3 fL Normal 8.5-12.2 [facility] Comment on above: Performed By: #### H EMO #### [facility] (DEFAULT) [address] [place] [address]2856 Platelets (Bld) [#/Vol] 267 10*3/uL Normal 150-393 [facility] Comment on above: Performed By: #### H EMO #### [facility] (DEFAULT) [address] [place] [address] 61957 RBC (Bld) [#/Vol] 4.30 10*6/uL Normal 3.91-5.04 [facility] Comment on above: Performed By: #### H EMO #### [facility] (DEFAULT) [address] [place] [address] 21484 RBC Distribution 13.5 % Normal 10.8-14.9 [facility] Comment on above: Performed By: #### H EMO #### [facility] (DEFAULT) [address] [place] [address] 09638 WBC (Bld) [#/Vol] 6.95 10*3/uL Normal 3.99-11.19 [facility] Comment on above: Performed By: #### H EMO #### [facility] (DEFAULT) [address] [place] [address] 28454 CHEM 7 (LYTES,BUN,CREA,GLUC) on 11-02-2022 Anion gap [Moles/Vol] 11 mmol/L Normal 7-17 [facility] Comment on above: Performed By: #### FATUMA SPIVEY #### [facility] (DEFAULT) [address] [place] [address] 33896 Chloride [Moles/Vol] 108 mmol/L Normal 98-108 [facility] Comment on above: Performed By: #### Timo QUINTERO CHM7 #### [facility] (DEFAULT) [address] [place] [address] 57385 CO2 [Moles/Vol] 24 mmol/L Normal 21-31 [facility] Comment on above: Performed By: #### Timo QUINTERO CHM7 #### [facility] (DEFAULT) [address] [place] [address] 58018 Creatinine [Mass/Vol] 0.76 mg/dL Normal 0.50-1.20 [facility] Comment on above: Performed By: #### Timo QUINTERO CHM7 #### [facility] (DEFAULT) [address] [place] [address] 10512 eGFR, CKD-EPI, Female > Normal >=60 [facility] Comment on above: Result Comment: Repo rted eGFR is based on the CKD-EPI 2020 equation using creatinine, age, and sex. Performed By: #### Timo QUINTERO CHM7 #### [facility] (DEFAULT) [address] [place] [address] 05258 Glucose [Mass/Vol] 91 mg/dL Normal 70-99 [facility] Comment on above: Performed By: #### Timo QUINTERO CHM7 #### [facility] (DEFAULT) [address] [place] [address] 53505 Osmolality [Osmolality] 291 mosm/kg Normal 278-305 [facility] Comment on above: Performed By: #### Timo QUINTERO CHM7 #### [facility] (DEFAULT) [address] [place] [address] 07021 Potassium [Moles/Vol] 3.7 mmol/L Normal 3.5-5.0 [facility] Comment on above: Performed By: #### Timo QUINTERO CHM7 #### [facility] (DEFAULT) [address] [place] [address] 94764 Sodium [Moles/Vol] 139 mmol/L Normal 135-145 [facility] Comment on above: Performed By: #### Timo QUINTERO CHM7 #### [facility] (DEFAULT) [address] [place] [address] 16820 Urea nitrogen [Mass/Vol] 17 mg/dL Normal 7-25 [facility] Comment on above: Performed By: #### M JAGDISH QUINTEROM7 #### [facility] (DEFAULT) [address] [place] [address] Urea nitrogen/Creatinine [Mass ratio] 22 mg/mg Normal [facility] Comment on above: Performed By: #### M JAGDISH QUINTEROM7 #### [facility] (DEFAULT) [address] [place] [address] Laboratory - Chemistry and C hemistry - challengeon 11-02-2022 Vitamin D+Metabolites [Mass/Vol] 11.7 ng/mL Low 30.0 - 100.0 ng/mL [facility] Comment on above: <10 Deficiency 10-29 Insufficiency 30-100 Optimal Level >100 Possible Toxicity Anion gap [Moles/Vol] 11 mmol/L 7 - 17 mmol/L [facility] Chloride [Moles/Vol] 108 mmol/L 98 - 10 8 mmol/L [facility] CO2 [Moles/Vol] 24 mmol/L 21 - 31 mmol/L [facility] Creatinine [Mass/Vol] 0.76 mg/dL 0.50 - 1.20 mg/dL [facility] GFR/1.73 sq M.predicted CKD-EPI (S/P/Bld) [Vol rate/Area] - PINF [facility] Comment on above: Reported eGFR is bas ed on the CKD-EPI 2020 equation using creatinine, age, and sex. Glucose [Mass/Vol] 91 mg/dL 70 - 99 mg/dL [facility] Osmolality Calc [Osmolality] 291 [facility] Potassium [Moles/Vol] 3.7 mmol/L 3.5 - 5.0 mmol/L [facility] Sodium [Moles/Vol] 139 mmol/L 135 - 145 mmol/L [facility] Urea nitrogen [Mass/Vol] 17 mg/dL 7 - 25 mg/dL [facility] Urea nitrogen/Creatinine [Mass ratio] 22 mg/mg [facility] Magnesium [Mass/Vol] 1.9 mg/dL 1.6 - 2 .6 mg/dL [facility] Laboratory - Hematology and Cell countson 11-02-2022 Erythrocyte distribution width (RBC) [Ratio] 13.5 % 10.8 - 14.9 % [facility] Hematocrit (Bld) [Volume fraction] 35.8 % 34.9 - 44.3 % [facility] Hemoglobin (Bld) [Mass/Vol] 11.7 g/dL 11.4 - 15.2 g/dL [facility] MCH (RBC) [Entitic mass] 27.2 pg 25.9 - 33.9 pg [facility] MCHC (RBC) [Mass/Vol] 32.7 g/dL 31.4 - 35.9 g/dL [facility] MCV (RBC) [Entitic vol] 83.3 fL 79.6 - 97.7 fL [facility] Platelet mean volume (Bld) [Entitic vol] 9.3 fL 8.5 - 12.2 fL [facility] Platelets (Bld) [#/Vol] 267 10*3/uL 150 - 393 K/uL [facility] RBC (Bld) [#/Vol] 4.30 10*6/uL [facility] WBC (Bld) [#/Vol] 6.95 10*3/uL 3.99 - 11.19 K/uL [facility] Laboratory - Microbiology an d Antimicrobial susceptibilityOrdered By: Sola Fay on 11-02-2022 M. tuberculosis tuberculin stim IFN-g Ql (Bld) Negative Negative [facility] M. tuberculosis tuberculin stim IFN-g/Mitogen stimulated gamma interferon Qn (Bld control) 0.00 IU/mL [facility] M. tuberculosis tuberculin stim IFN-g/Mitogen stimulated gamma interferon Qn (Bld control) 7.01 IU/mL [facility] MAGNESIUMon 11-02-2022 Magnesium [Mass/Vol] 1.9 mg/dL Normal 1.6-2.6 [facility] Comment on above: Performed By: #### M [facility] #### [facility] (DEFAULT) [address] [place] [id number] No Panel Informationon 11-02 Interpretation and review of laboratory results Abnormal [facility] Vitamin D values hav e been shown to be falsely decreased in lipemic samples and should be interpreted with caution. [facility] Interpretation and review of laboratory results Normal [facility] Interpretation and review of laboratory results Normal [facility] No Panel InformationOrdered By: Sola Fay on 11-02-2022 [facility] Laboratory - Chemistry and C hemistry - challengeon 11-01-2022 Anion gap [Moles/Vol] 13 mmol/L 7 - 17 mmol/L [facility] Chloride [Moles/Vol] 109 mmol/L High 98 - 10 8 mmol/L [facility] CO2 [Moles/Vol] 23 mmol/L 21 - 31 mmol/L [facility] Creatinine [Mass/Vol] 0.79 mg/dL 0.50 - 1.20 mg/dL [facility] GFR/1.73 sq M.predicted CKD-EPI (S/P/Bld) [Vol rate/Area] - [facility] Comment on above: Reported eGFR is bas ed on the CKD-EPI 2020 equation using creatinine, age, and sex. Glucose [Mass/Vol] 95 mg/dL 70 - 99 mg/dL [facility] Magnesium [Mass/Vol] 1.9 mg/dL 1.6 - 2 .6 mg/dL [facility] Osmolality Calc [Osmolality] 295 [facility] Potassium [Moles/Vol] 4.0 mmol/L 3.5 - 5.0 mmol/L [facility] Sodium [Moles/Vol] 141 mmol/L 135 - 145 mmol/L [facility] Urea nitrogen [Mass/Vol] 14 mg/dL 7 - 25 mg/dL [facility] Urea nitrogen/Creatinine [Mass ratio] 18 mg/mg [facility] Laboratory - Coagulationon 0 11-01-2022 aPTT Coag (PPP) [Time] 35.6 s High OS [facility] INR Coag (Bld) [Relative time] 1.1 {INR} 0.9 - 1.1 [facility] PT Coag (PPP) [Time] 13.8 s [facility] Laboratory - Hematology and Cell countson 11-01-2022 Erythrocyte distribution width (RBC) [Ratio] 13.3 % 10.8 - 14.9 % [facility] Hematocrit (Bld) [Volume fraction] 38.0 % 34.9 - 44.3 % [facility] Hemoglobin (Bld) [Mass/Vol] 12.4 g/dL 11.4 - 15.2 g/dL [facility] MCH (RBC) [Entitic mass] 27.1 pg 25.9 - 33.9 pg [facility] MCHC (RBC) [Mass/Vol] 32.6 g/dL 31.4 - 35.9 g/dL [facility] MCV (RBC) [Entitic vol] 83.0 fL 79.6 - 97.7 fL [facility] Platelet mean volume (Bld) [Entitic vol] 9.2 fL 8.5 - 12.2 fL [facility] Platelets (Bld) [#/Vol] 280 10*3/uL 150 - 393 K/uL [facility] RBC (Bld) [#/Vol] 4.58 10*6/uL [facility] WBC (Bld) [#/Vol] 7.46 10*3/uL 3.99 - 11.19 K/uL [facility] No Panel Informationon 11-01 Interpretation and review of laboratory results Abnormal [facility] Interpretation and review of laboratory results Abnormal [facility] Interpretation and review of laboratory results Normal [facility] Interpretation and review of laboratory results Normal [facility] Laboratory - Chemistry and C hemistry - challengeon 10-31-2022 Anion gap [Moles/Vol] 15 mmol/L 7 - 17 mmol/L [facility] Chloride [Moles/Vol] 108 mmol/L 98 - 10 8 mmol/L [facility] CO2 [Moles/Vol] 20 mmol/L Low 21 - 31 mmol/L [facility] Creatinine [Mass/Vol] 0.64 mg/dL 0.50 - 1.20 mg/dL [facility] GFR/1.73 sq M.predicted CKD-EPI (S/P/Bld) [Vol rate/Area] - PINF [facility] Comment on above: Reported eGFR is bas ed on the CKD-EPI 2020 equation using creatinine, age, and sex. Glucose [Mass/Vol] 84 mg/dL 70 - 99 mg/dL [facility] Magnesium [Mass/Vol] 1.9 mg/dL 1.6 - 2 .6 mg/dL [facility] Osmolality Calc [Osmolality] 289 [facility] Potassium [Moles/Vol] 4.0 mmol/L 3.5 - 5.0 mmol/L [facility] Sodium [Moles/Vol] 139 mmol/L 135 - 145 mmol/L [facility] Urea nitrogen [Mass/Vol] 11 mg/dL 7 - 25 mg/dL [facility] Urea nitrogen/Creatinine [Mass ratio] 17 mg/mg [facility] Laboratory - Coagulationon 0 10-31-2022 aPTT Coag (PPP) [Time] 36.3 s High [facility] INR Coag (Bld) [Relative time] 1.2 {INR} High 0.9 - 1.1 [facility] PT Coag (PPP) [Time] 15.2 s High [facility] Laboratory - Hematology and Cell countson 10-31-2022 Erythrocyte distribution width (RBC) [Ratio] 13.3 % 10.8 - 14.9 % [facility] Hematocrit (Bld) [Volume fraction] 36.8 % 34.9 - 44.3 % [facility] Hemoglobin (Bld) [Mass/Vol] 12.0 g/dL 11.4 - 15.2 g/dL [facility] MCH (RBC) [Entitic mass] 26.8 pg 25.9 - 33.9 pg [facility] MCHC (RBC) [Mass/Vol] 32.6 g/dL 31.4 - 35.9 g/dL [facility] MCV (RBC) [Entitic vol] 82.3 fL 79.6 - 97.7 fL [facility] Platelet mean volume (Bld) [Entitic vol] 9.1 fL 8.5 - 12.2 fL [facility] Platelets (Bld) [#/Vol] 260 10*3/uL 150 - 393 K/uL [facility] RBC (Bld) [#/Vol] 4.47 10*6/uL [facility] WBC (Bld) [#/Vol] 7.87 10*3/uL 3.99 - 11.19 K/uL [facility] No Panel Informationon 10-31 [facility] Interpretation and review of laboratory results Abnormal [facility] Interpretation and review of laboratory results Normal [facility] Interpretation and review of laboratory results Abnormal [facility] Interpretation and review of laboratory results Normal [facility] Chronic hepatitis differenti ation between hepatitis B and C virus panelOrdered By: Jonathan Fairbanks on 10-30-2022 HBV core IgG+IgM Ql (S) Negative Negative [facility] HBV surface Ab IA Ql (S) Positive Abnormal Negative [facility] Comment on above: A positive result in dicates immunity through past immunization or prior infection. HBV surface Ag Ql (S) Negative Negative [facility] HCV Ab Ql (S) Negative Negative [facility] Interpretation and review of laboratory results Abnormal [facility] Laboratory - Chemistry and C hemistry - challengeon 10-30-2022 CK [Catalytic activity/Vol] 63 U/L 30 - 184 U/L [facility] pH (U) 7.5 [pH] Abnormal 5.0 - 7.0 [facility] Specific gravity (U) [Rel density] 1.015 1.001 - 1.035 [facility] Urobilinogen (U) [Mass/Vol] 0.2 E.U./dL 0.2 E.U/dL, 1.0 E.U/dL [facility] Anion gap [Moles/Vol] 13 mmol/L 7 - 17 mmol/L [facility] Chloride [Moles/Vol] 108 mmol/L 98 - 10 8 mmol/L [facility] CO2 [Moles/Vol] 21 mmol/L 21 - 31 mmol/L [facility] Creatinine [Mass/Vol] 0.57 mg/dL 0.50 - 1.20 mg/dL [facility] GFR/1.73 sq M.predicted CKD-EPI (S/P/Bld) [Vol rate/Area] - PINF [facility] Comment on above: Reported eGFR is bas ed on the CKD-EPI 2020 equation using creatinine, age, and sex. Glucose [Mass/Vol] 89 mg/dL 70 - 99 mg/dL [facility] Osmolality Calc [Osmolality] 288 [facility] Phosphate [Mass/Vol] 3.6 mg/dL 2.2 - 4 .6 mg/dL [facility] Potassium [Moles/Vol] 3.3 mmol/L Low 3.5 - 5.0 mmol/L [facility] Sodium [Moles/Vol] 139 mmol/L 135 - 145 mmol/L [facility] Urea nitrogen [Mass/Vol] 11 mg/dL 7 - 25 mg/dL [facility] Urea nitrogen/Creatinine [Mass ratio] 19 mg/mg [facility] Calcium [Mass/Vol] 8.8 mg/dL 8.6 - 10. 5 mg/dL [facility] Magnesium [Mass/Vol] 1.7 mg/dL 1.6 - 2 .6 mg/dL [facility] Laboratory - Chemistry and C hemistry - challengeOrdered By: Hussein Weaver on 10-30-2022 Procalcitonin [Mass/Vol] ng/mL NINF - 0.50 ng/mL [facility] Comment on above: Procalcitonin is an FDA-approved assay to help manage antibiotic treatment in patients with sepsis/septic shock and lower respiratory tract infections. Specifically, trending procalcitonin in these situations can be used to reduce the duration of antibiotics. Please refer to the Procalcitonin Guide on the Antimicrobial Stewardship Webpage for more guidance on how to use and trend procalcitonin in various clinical settings. [email or web address] Two common cutoffs associated with bacterial infections are as follows. Respiratory tract infections: >0.25 ng/mL Sepsis/septic shock: >0.5 ng/mL Procalcitonin should not be used alone as a diagnostic tool, however. All procalcitonin results should be interpreted in association with the patients clinical condition and all laboratory findings. Laboratory - Coagulationon 0 10-30-2022 aPTT Coag (PPP) [Time] 31.1 s OS [facility] INR Coag (Bld) [Relative time] 1.1 {INR} 0.9 - 1.1 [facility] PT Coag (PPP) [Time] 14.2 s [facility] Laboratory - Drug toxicology Ordered By: Lise Giron on 10-30-2022 Amphetamine+Methamphet amine Screen (U) [Mass/Vol] Negative [facility] Barbiturates Ql (U) Negative [facility] Benzodiazepines Ql (U) Positive Abnormal [facility] Buprenorphine Ql (U) Negative [facility] Cannabinoids Screen Ql (U) Negative [facility] Cocaine Ql (U) Negative [facility] fentaNYL Ql (U) Negative [facility] Methadone Ql (U) Negative [facility] Opiates Ql (U) Negative [facility] oxyCODONE Ql (U) Negative [facility] Laboratory - Hematology and Cell countson 10-30-2022 Complement C3 [Mass/Vol] 143 mg/dL 87 - 200 mg/dL [facility] Complement C4 [Mass/Vol] 20 mg/dL 18 - 52 mg/dL [facility] Basophils (Bld) [#/Vol] 0.04 10*3/uL 0.00 - 0.15 K/uL [facility] Basophils/100 WBC (Bld) 0.3 % [facility] Differential cell count method Nom (Bld) Electronic Differential O [facility] Eosinophils (Bld) [#/Vol] 0.13 10*3/uL 0.00 - 0.42 K/uL [facility] Eosinophils/100 WBC (Bld) 1.1 % [facility] Erythrocyte distribution width (RBC) [Ratio] 13.2 % 10.8 - 14.9 % [facility] Hematocrit (Bld) [Volume fraction] 35.8 % 34.9 - 44.3 % [facility] Hemoglobin (Bld) [Mass/Vol] 11.7 g/dL 11.4 - 15.2 g/dL [facility] Immature granulocytes (Bld) [#/Vol] 0.05 10*3/uL NINF - 0.08 K/uL [facility] Immature granulocytes/100 WBC (Bld) 0.4 % [facility] Lymphocytes (Bld) [#/Vol] 2.53 10*3/uL 1.16 - 3.51 K/uL [facility] Lymphocytes/100 WBC (Bld) 21.6 % [facility] MCH (RBC) [Entitic mass] 26.9 pg 25.9 - 33.9 pg [facility] MCHC (RBC) [Mass/Vol] 32.7 g/dL 31.4 - 35.9 g/dL [facility] MCV (RBC) [Entitic vol] 82.3 fL 79.6 - 97.7 fL [facility] Monocytes (Bld) [#/Vol] 0.77 10*3/uL 0.22 - 0.87 K/uL [facility] Monocytes/100 WBC (Bld) 6.6 % [facility] Neutrophils (Bld) [#/Vol] 8.19 10*3/uL High 1.64 - 7.28 K/uL [facility] Nucleated RBC/100 WBC (Bld) [Ratio] 0.0 % NINF [facility] Platelet mean volume (Bld) [Entitic vol] 9.4 fL 8.5 - 12.2 fL [facility] Platelets (Bld) [#/Vol] 265 10*3/uL 150 - 393 K/uL [facility] RBC (Bld) [#/Vol] 4.35 10*6/uL [facility] Segmented neutrophils/100 WBC (Bld) 70.0 % [facility] WBC (Bld) [#/Vol] 11.71 10*3/uL High 3.99 - 11.19 K/uL [facility] Laboratory - Specimen inform ationon 10-30-2022 Appearance (U) Clear Clear [facility] Color (U) Yellow Yellow [facility] Laboratory - Urinalysison Bacteria LM Ql (Urine sed) ABSENT ABSENT [facility] Epithelial cells.squamous LM Ql (Urine sed) 3-5/hpf = 1+ 0-2/hpf, 3-5/hpf = 1+ [facility] Glucose Test strip (U) [Mass/Vol] Negative Negative [facility] Ketones (U) [Mass/Vol] Trace Abnormal Negative [facility] Leukocyte esterase Test strip Ql (U) Negative Negative [facility] Nitrite Ql (U) Negative Negative [facility] Protein (U) [Mass/Vol] Negative Negative [facility] RBC (U) [#/Vol] Trace Abnormal Negative [facility] RBC LM.HPF (Urine sed) [#/Area] 0-2 [facility] WBC LM.HPF (Urine sed) [#/Area] 0 - 5 [facility] No Panel InformationOrdered By: Lise Giron on 10-30-2022 Interpretation and review of laboratory results Abnormal [facility] For medical purposes only. Positive results are unconfirmed unless otherwise noted. [facility] No Panel Informationon 10-30 Interpretation and review of laboratory results Normal [facility] Interpretation and review of laboratory results Abnormal [facility] Interpretation and review of laboratory results Normal [facility] Interpretation and review of laboratory results Abnormal [facility] Interpretation and review of laboratory results Normal [facility] Interpretation and review of laboratory results Abnormal [facility] No Panel InformationOrdered By: Hussein Weaver on 10-30-2022 Interpretation and review of laboratory results Normal [facility] Portable XR Chest Viewson IMPRESSION: Right lung volume is diminished with patchy right midlung opacities. Atelectasis or developing infection are considerations in the appropriate clinical setting. OLOGY EXAM: XR CHEST DONITA BLE, 10/30/2022 05:57 AM COMPARISON: No prior studies available for comparison. CLINICAL INDICATIONS: r/o infectious etiology RELEVANT CLINICAL HISTORY: FINDINGS: (Adequate technique) Implanted Devices: Right IJ port catheter with tip in the cavoatrial junction. Thorax: Right lung volume is diminished with elevation the right hemidiaphragm. Airspace opacities are noted in the right midlung. Left lung is clear. Heart size is normal. Osseous structures are intact. RADIOLOGY Vivek Vergara MD - 10/30/2022 EXAM: XR CHEST PORTABLE, 10/30/2022 05:57 AM COMPARISON: No prior studies available for comparison. CLINICAL INDICATIONS: r/o infectious etiology RELEVANT CLINICAL HISTORY: FINDINGS: (Adequate technique) Implanted Devices: Right IJ port catheter with tip in the cavoatrial junction. Thorax: Right lung volume is diminished with elevation the right hemidiaphragm. Airspace opacities are noted in the right midlung. Left lung is clear. Heart size is normal. Osseous structures are intact. IMPRESSION IMPRESSION: Right lung volume is diminished with patchy right midlung opacities. Atelectasis or developing infection are considerations in the appropriate clinical setting. [facility] Radiology Study observation (narrative) [facility] Portable XR Chest ViewsOrder ed By: Vivek Vergara on 10-30-2022 [facility] Work Phone: Absolute lymphocyte countOrd ered By: Zina Fierro on 10-29-2022 Lymphocytes Auto (Unsp spec) [#/Vol] 2.02 10*3/uL 0.83-4.51 [facility] Basophil percentageOrdered B y: Zina Fierro on 10-29-2022 Basophil percentage 0 SEEN /hpf 0-5 [facility] Basophils/100 WBC (Bld) 0.6 % 0-1 [facility] Bilirubin [Mass/Vol] 0.30 mg/dL 0.20-1.00 [facility] Comment on above: For patients on eltr ombopag therapy, use of Dimension [place] TBIL is not recommended. Chloride [Moles/Vol] 108 mmol/L 98-107 [facility] Eosinophils/100 WBC (Bld) 1.7 % 0-5 [facility] Glucose [Mass/Vol] 135 mg/dL 74-106 [facility] Comment on above: Fasting Glucose resu lt greater than or equal to 126 mg/dL suggests DIABETES MELLITUS per A.D.A. criteria. Neutrophils (Bld) [#/Vol] 5.4 10*3/uL 2.0-7.7 [facility] Neutrophils/100 WBC (Bld) 67.2 % 47-70 [facility] Potassium [Moles/Vol] 3.4 mmol/L 3.5-5.1 [facility] Protein [Mass/Vol] 7.4 g/dL 6.4-8.2 [facility] Sodium [Moles/Vol] 139 mmol/L 136-145 [facility] WBC (Bld) [#/Vol] 8.1 10*3/uL 4.4-11.0 [facility] Bilirubin Test strip Ql (U)O rdered By: Zina Fierro on 10-29-2022 Bilirubin Ql (U) Negative Negative [facility] Blood erythrocytes count (nu mber/volume)Ordered By: Zina Fierro on 10-29-2022 RBC (Bld) [#/Vol] 4.74 10*6/uL 4.2-5.4 [facility] Blood hemoglobin measurement (mass/volume)Ordered By: Zina Fierro on 10-29-2022 Hemoglobin (Bld) [Mass/Vol] 12.8 g/dL 12.0-15.0 [facility] Blood lymphocytes/100 leukoc ytesOrdered By: Zina Fierro on 10-29-2022 Lymphocytes/100 WBC (Bld) 25.1 % 19-41 [facility] Blood monocytes/100 leukocyt esOrdered By: Zina Fierro on 10-29-2022 Monocytes/100 WBC (Bld) 4.8 % 0-10 [facility] Blood platelet mean volumeOr dered By: Zina Fierro on 10-29-2022 Platelet mean volume (Bld) [Entitic vol] 9.5 fL 6.2-12.0 [facility] Determination of erythrocyte mean corpuscular volume (MCV)Ordered By: Zina Fierro on 10-29-2022 MCV (RBC) [Entitic vol] 84.6 fL 81-99 [facility] Hematocrit Auto (Bld) [Volum e fraction]Ordered By: Zina Fierro on 10-29-2022 Hematocrit (Bld) [Volume fraction] 40.1 % 37-47 [facility] Ketones Test strip Ql (U)Ord ered By: Zina Fierro on 10-29-2022 Ketones Ql (U) Negative Negative [facility] Laboratory - Chemistry and C hemistry - challengeOrdered By: Zina Fierro on 10-29-2022 HCG ( test) Ql (U) Negative [facility] Comment on above: Very dilute urine sp ecimens, as indicated by a low specificgravity, may not contain public service representative levels of hCG. If is still suspected, a first morning urinespecimen should be collected 48 hours later and tested. ALP [Catalytic activity/Vol] 97 U/L 45-117 [facility] ALT [Catalytic activity/Vol] 18 U/L 13-56 [facility] CO2 [Moles/Vol] 23.0 mmol/L 21.0-32.0 [facility] Globulin (S) [Mass/Vol] 3.8 g/dL 2.2-4.2 [facility] Urea nitrogen/Creatinine [Mass ratio] 12.5 mg/mg 10-20 [facility] Laboratory - Hematology and Cell countsOrdered By: Zina Fierro on 10-29-2022 Erythrocyte distribution width (RBC) [Entitic vol] 40.2 fL 35.1-43.9 [facility] Erythrocyte distribution width (RBC) [Ratio] 13.2 % 11.6-14.6 [facility] Immature granulocytes/100 WBC (Bld) 0.600 % 0.0-0.9 [facility] Comment on above: IG% - Immature Granu locytes (promyelocytes, myelocytes and metamyelocytes) > 1% indicates that a LEFT SHIFT is Present. MCH (RBC) [Entitic mass] 27.0 pg 27.0-32.0 [facility] Nucleated RBC/100 WBC (Bld) [Ratio] 0 % 0-5 [facility] MCHC Auto (RBC) [Mass/Vol]Or dered By: Zina Fierro on 10-29-2022 MCHC (RBC) [Mass/Vol] 31.9 g/dL 32-36 [facility] Mucus LM Ql (Urine sed)Order ed By: Zina Fierro on 10-29-2022 Mucus Ql (Urine sed) 0 SEEN /hpf [facility] Nitrite Test strip Ql (U)Ord ered By: Zina Fierro on 10-29-2022 Nitrite Ql (U) Negative Negative [facility] No Panel InformationOrdered By: Zina Fierro on 10-29-2022 Estimated Creatinine Clearance Calc 81.97 ml/min [facility] Estimated GFR (MDRD) Amer 106 mL/min >60 [facility] Comment on above: GFR Calc Estimated GFR (MDRD) Non-Af Amer 87 mL/min >60 [facility] Comment on above: Non- GFR Calc Platelets bldOrdered By: Zelda Fierro on 10-29-2022 Platelets (Bld) [#/Vol] 299 10*3/uL 150-450 [facility] Protein Test strip Ql (U)Ord ered By: Zina Fierro on 10-29-2022 Protein Ql (U) Negative Negative [facility] Serum or plasma albumin traci urement (mass/volume)Ordered By: Zina Fierro on 10-29-2022 Albumin [Mass/Vol] 3.6 g/dL 3.2-5.0 [facility] Serum or plasma albumin/glob ulin mass ratioOrdered By: Zina Fierro on 10-29-2022 Albumin/Globulin [Mass ratio] 0.9 {ratio} 0.9-2.4 [facility] Serum or plasma calcium traci urement (mass/volume)Ordered By: Zina Fierro on 10-29-2022 Calcium [Mass/Vol] 9.1 mg/dL 8.5-10.1 [facility] Serum or plasma creatinine m easurement (mass/volume)Ordered By: Zina Fierro on 10-29-2022 Creatinine [Mass/Vol] 0.80 mg/dL 0.55-1.02 [facility] Comment on above: The validity of the calculated GFR & GFRAA in patients over 70 years has not been determined. Clinical correlation is essential. Serum or plasma urea nitroge n measurement (mass/volume)Ordered By: Zina Fierro on 10-29-2022 Urea nitrogen [Mass/Vol] 10 mg/dL 7-18 [facility] Squamous epithelial cells de tection in urine sediment by light microscopyOrdered By: Zina Fierro on 10-29-2022 Epithelial cells.squamous LM Ql (Urine sed) 0 SEEN /hpf 5-10 [facility] Thin prep Papanicolaou smear with manual screeningOrdered By: Zina Fierro on 10-29-2022 Thin prep Papanicolaou smear with manual screening 11 U/L 15-37 [facility] Thin prep Papanicolaou smear with manual screening 8 5-15 [facility] Urine blood detectionOrdered By: Zina Fierro on 10-29-2022 RBC Ql (U) Negative Negative [facility] RBC Ql (U) 0 SEEN /hpf 0-5 [facility] Urine clarityOrdered By: Zelda Fierro on 10-29-2022 Clarity (U) Sl. Cloudy Clear [facility] Urine color determinationOrd ered By: Zina Fierro on 10-29-2022 Color (U) Yellow Yellow [facility] Urine glucose detectionOrder ed By: Zina Fierro on 10-29-2022 Glucose Ql (U) Normal mg/dl Normal [facility] Urine leukocyte esterase det ection by dipstickOrdered By: Zina Fierro on 10-29-2022 Leukocyte esterase Test strip Ql (U) Negative Negative [facility] Urine pHOrdered By: Zina schwartz on 10-29-2022 pH (U) 7.0 [pH] 5.0 - 8.0 [facility] Urine sediment bacteria coun t by microscopy (number/high power field)Ordered By: Zina Fierro on 10-29-2022 Bacteria LM.HPF (Urine sed) [#/Area] 0 /[HPF] None Seen [facility] Urine specific gravity measu rementOrdered By: Zina Fierro on 10-29-2022 Specific gravity (U) [Rel density] 1.015 1.002-1.03 0 [facility] Urobilinogen Auto test strip Ql (U)Ordered By: Zina Fierro on 10-29-2022 Urobilinogen Ql (U) Normal mg/dl Normal [facility] Absolute lymphocyte countOrd ered By: Dr. Del Castillo on 09-07-2022 Lymphocytes Auto (Unsp spec) [#/Vol] 1.67 10*3/uL 0.83-4.51 [facility] Basophil percentageOrdered B y: Dr. Del Castillo on 09-07-2022 Basophils/100 WBC (Bld) 0.4 % 0-1 [facility] Bilirubin [Mass/Vol] 0.40 mg/dL 0.20-1.00 [facility] Comment on above: For patients on eltr ombopag therapy, use of Dimension [place] TBIL is not recommended. Chloride [Moles/Vol] 112 mmol/L 98-107 [facility] Eosinophils/100 WBC (Bld) 1.1 % 0-5 [facility] Glucose [Mass/Vol] 86 mg/dL 74-106 [facility] Neutrophils (Bld) [#/Vol] 8.6 10*3/uL 2.0-7.7 [facility] Neutrophils/100 WBC (Bld) 77.3 % 47-70 [facility] Potassium [Moles/Vol] 3.7 mmol/L 3.5-5.1 [facility] Protein [Mass/Vol] 7.3 g/dL 6.4-8.2 [facility] Sodium [Moles/Vol] 140 mmol/L 136-145 [facility] WBC (Bld) [#/Vol] 11.1 10*3/uL 4.4-11.0 [facility] Blood erythrocytes count (nu mber/volume)Ordered By: Dr. Del Castillo on 09-07-2022 RBC (Bld) [#/Vol] 4.48 10*6/uL 4.2-5.4 [facility] Blood hemoglobin measurement (mass/volume)Ordered By: Dr. Del Castillo on 09-07-2022 Hemoglobin (Bld) [Mass/Vol] 12.4 g/dL 12.0-15.0 [facility] Blood lymphocytes/100 leukoc ytesOrdered By: Dr. Del Castillo on 09-07-2022 Lymphocytes/100 WBC (Bld) 15.0 % 19-41 [facility] Blood monocytes/100 leukocyt esOrdered By: Dr. Del Castillo on 09-07-2022 Monocytes/100 WBC (Bld) 5.8 % 0-10 [facility] Blood platelet mean volumeOr dered By: Dr. Del Castillo on 09-07-2022 Platelet mean volume (Bld) [Entitic vol] 9.3 fL 6.2-12.0 [facility] Determination of erythrocyte mean corpuscular volume (MCV)Ordered By: Dr. Del Castillo on 09-07-2022 MCV (RBC) [Entitic vol] 85.9 fL 81-99 [facility] Hematocrit Auto (Bld) [Volum e fraction]Ordered By: Dr. Del Castillo on 09-07-2022 Hematocrit (Bld) [Volume fraction] 38.5 % 37-47 [facility] Laboratory - Chemistry and C hemistry - challengeOrdered By: Dr. Del Castillo on 09-07-2022 ALP [Catalytic activity/Vol] 102 U/L 45-117 [facility] ALT [Catalytic activity/Vol] 20 U/L 13-56 [facility] CO2 [Moles/Vol] 22.0 mmol/L 21.0-32.0 [facility] Globulin (S) [Mass/Vol] 3.4 g/dL 2.2-4.2 [facility] Urea nitrogen/Creatinine [Mass ratio] 13.5 mg/mg 10-20 [facility] Laboratory - Hematology and Cell countsOrdered By: Dr. Del Castillo on 09-07-2022 Erythrocyte distribution width (RBC) [Entitic vol] 41.1 fL 35.1-43.9 [facility] Erythrocyte distribution width (RBC) [Ratio] 13.2 % 11.6-14.6 [facility] Immature granulocytes/100 WBC (Bld) 0.400 % 0.0-0.9 [facility] Comment on above: IG% - Immature Granu locytes (promyelocytes, myelocytes and metamyelocytes) > 1% indicates that a LEFT SHIFT is Present. MCH (RBC) [Entitic mass] 27.7 pg 27.0-32.0 [facility] Nucleated RBC/100 WBC (Bld) [Ratio] 0 % 0-5 [facility] MCHC Auto (RBC) [Mass/Vol]Or dered By: Dr. Del Castillo on 09-07-2022 MCHC (RBC) [Mass/Vol] 32.2 g/dL 32-36 [facility] No Panel InformationOrdered By: Dr. Del Castillo on 09-07-2022 D-Dimer Quantitative (PE/DVT) < 0.27 FEU/ug/m 0.27-0.49 [facility] Comment on above: NORMAL D-Dimer level (<0.50) indicates no DVT or PE. Estimated Creatinine Clearance Calc 88.61 ml/min [facility] Estimated GFR (MDRD) Amer 115 mL/min >60 [facility] Comment on above: GFR Calc Estimated GFR (MDRD) Non-Af Amer 95 mL/min >60 [facility] Comment on above: Non- GFR Calc Platelets bldOrdered By: Dr. Del Castillo on 09-07-2022 Platelets (Bld) [#/Vol] 306 10*3/uL 150-450 [facility] Serum or plasma albumin traci urement (mass/volume)Ordered By: Dr. Del Castillo on 09-07-2022 Albumin [Mass/Vol] 3.9 g/dL 3.2-5.0 [facility] Serum or plasma albumin/glob ulin mass ratioOrdered By: Dr. Del Castillo on 09-07-2022 Albumin/Globulin [Mass ratio] 1.1 {ratio} 0.9-2.4 [facility] Serum or plasma calcium traci urement (mass/volume)Ordered By: Dr. Del Castillo on 09-07-2022 Calcium [Mass/Vol] 9.1 mg/dL 8.5-10.1 [facility] Serum or plasma creatinine m easurement (mass/volume)Ordered By: Dr. Del Castillo on 09-07-2022 Creatinine [Mass/Vol] 0.74 mg/dL 0.55-1.02 [facility] Comment on above: The validity of the calculated GFR & GFRAA in patients over 70 years has not been determined. Clinical correlation is essential. Serum or plasma urea nitroge n measurement (mass/volume)Ordered By: Dr. Del Castillo on 09-07-2022 Urea nitrogen [Mass/Vol] 10 mg/dL 7-18 [facility] Thin prep Papanicolaou smear with manual screeningOrdered By: Dr. Del Castillo on 09-07-2022 Thin prep Papanicolaou smear with manual screening 13 U/L 15-37 [facility] Thin prep Papanicolaou smear with manual screening 6 5-15 [facility] 36on 09-04-2022 36 Name of Caller: Damion olsen Contact Reason for Appointment: Doug submitted an online request on 09/04/22 regarding a call back to get scheduled for a [employer] appt for Dx: Myasthenia Gravis/Epilepsy. Doug states she would like to get scheduled for an appt within the next month. Doug states she is available for call back any time. EVELIO contacted Doug for additional information regarding scheduling; however, there was no answer. EVELIO LVM with office fax# and ph# for referral and scheduling. Please be advised. Office Name: Neurology, [facility] Medication Refills need, if any: N/A Medication Name: N/A Normal [facility] Absolute lymphocyte countOrd ered By: Dr. Feldman on 08-08-2022 Lymphocytes Auto (Unsp spec) [#/Vol] 0.97 10*3/uL 0.83-4.51 [facility] Basophil percentageOrdered B y: Dr. Feldman on 08-08-2022 Basophils/100 WBC (Bld) 0.4 % 0-1 [facility] Chloride [Moles/Vol] 114 mmol/L 98-107 [facility] Eosinophils/100 WBC (Bld) 0.9 % 0-5 [facility] Glucose [Mass/Vol] 113 mg/dL 74-106 [facility] Comment on above: Fasting Glucose resu lt from 100 to 125 mg/dL suggests IMPAIRED HOMEOSTASIS per A.D.A. criteria. Neutrophils (Bld) [#/Vol] 10.1 10*3/uL 2.0-7.7 [facility] Neutrophils/100 WBC (Bld) 85.0 % 47-70 [facility] Potassium [Moles/Vol] 3.7 mmol/L 3.5-5.1 [facility] Sodium [Moles/Vol] 139 mmol/L 136-145 [facility] WBC (Bld) [#/Vol] 11.9 10*3/uL 4.4-11.0 [facility] Basophil percentage 0 SEEN /hpf 0-5 [facility] Bilirubin Test strip Ql (U)O rdered By: Dr. Feldman on 08-08-2022 Bilirubin Ql (U) Negative Negative [facility] Blood erythrocytes count (nu mber/volume)Ordered By: Dr. Feldman on 08-08-2022 RBC (Bld) [#/Vol] 4.31 10*6/uL 4.2-5.4 [facility] Blood hemoglobin measurement (mass/volume)Ordered By: Dr. Feldman on 08-08-2022 Hemoglobin (Bld) [Mass/Vol] 12.1 g/dL 12.0-15.0 [facility] Blood lymphocytes/100 leukoc ytesOrdered By: Dr. Feldman on 08-08-2022 Lymphocytes/100 WBC (Bld) 8.1 % 19-41 [facility] Blood monocytes/100 leukocyt esOrdered By: Dr. Feldman on 08-08-2022 Monocytes/100 WBC (Bld) 5.0 % 0-10 [facility] Blood platelet mean volumeOr dered By: Dr. Feldman on 08-08-2022 Platelet mean volume (Bld) [Entitic vol] 9.1 fL 6.2-12.0 [facility] Determination of erythrocyte mean corpuscular volume (MCV)Ordered By: Dr. Feldman on 08-08-2022 MCV (RBC) [Entitic vol] 85.6 fL 81-99 [facility] Hematocrit Auto (Bld) [Volum e fraction]Ordered By: Dr. Feldman on 08-08-2022 Hematocrit (Bld) [Volume fraction] 36.9 % 37-47 [facility] Ketones Test strip Ql (U)Ord ered By: Dr. Feldman on 08-08-2022 Ketones Ql (U) Negative Negative [facility] Laboratory - Chemistry and C hemistry - challengeOrdered By: Dr. Feldman on 08-08-2022 CO2 [Moles/Vol] 22.0 mmol/L 21.0-32.0 [facility] Urea nitrogen/Creatinine [Mass ratio] 18.3 mg/mg 10-20 [facility] HCG ( test) Ql (U) Negative [facility] Comment on above: Very dilute urine sp ecimens, as indicated by a low specificgravity, may not contain public service representative levels of hCG. If is still suspected, a first morning urinespecimen should be collected 48 hours later and tested. Laboratory - Hematology and Cell countsOrdered By: Dr. Feldman on 08-08-2022 Erythrocyte distribution width (RBC) [Entitic vol] 43.0 fL 35.1-43.9 [facility] Erythrocyte distribution width (RBC) [Ratio] 13.7 % 11.6-14.6 [facility] Immature granulocytes/100 WBC (Bld) 0.600 % 0.0-0.9 [facility] Comment on above: IG% - Immature Granu locytes (promyelocytes, myelocytes and metamyelocytes) > 1% indicates that a LEFT SHIFT is Present. MCH (RBC) [Entitic mass] 28.1 pg 27.0-32.0 [facility] Nucleated RBC/100 WBC (Bld) [Ratio] 0 % 0-5 [facility] MCHC Auto (RBC) [Mass/Vol]Or dered By: Dr. Feldman on 08-08-2022 MCHC (RBC) [Mass/Vol] 32.8 g/dL 32-36 [facility] Mucus LM Ql (Urine sed)Order ed By: Dr. Feldman on 08-08-2022 Mucus Ql (Urine sed) 0 SEEN /hpf [facility] Nitrite Test strip Ql (U)Ord ered By: Dr. Feldman on 08-08-2022 Nitrite Ql (U) Negative Negative [facility] No Panel InformationOrdered By: Dr. Feldman on 08-08-2022 Estimated Creatinine Clearance Calc 100.29 ml/min [facility] Estimated GFR (MDRD) Amer 133 mL/min >60 [facility] Comment on above: GFR Calc Estimated GFR (MDRD) Non-Af Amer 110 mL/min >60 [facility] Comment on above: Non- GFR Calc Platelets bldOrdered By: Dr. Feldman on 08-08-2022 Platelets (Bld) [#/Vol] 255 10*3/uL 150-450 [facility] Protein Test strip Ql (U)Ord ered By: Dr. Feldman on 08-08-2022 Protein Ql (U) Negative Negative [facility] Serum or plasma calcium traci urement (mass/volume)Ordered By: Dr. Feldman on 08-08-2022 Calcium [Mass/Vol] 8.9 mg/dL 8.5-10.1 [facility] Serum or plasma creatinine m easurement (mass/volume)Ordered By: Dr. Feldman on 08-08-2022 Creatinine [Mass/Vol] 0.66 mg/dL 0.55-1.02 [facility] Comment on above: The validity of the calculated GFR & GFRAA in patients over 70 years has not been determined. Clinical correlation is essential. Serum or plasma urea nitroge n measurement (mass/volume)Ordered By: Dr. Feldman on 08-08-2022 Urea nitrogen [Mass/Vol] 12 mg/dL 7-18 [facility] Squamous epithelial cells de tection in urine sediment by light microscopyOrdered By: Dr. Feldman on 08-08-2022 Epithelial cells.squamous LM Ql (Urine sed) 0-5 SEEN /hpf 5-10 [facility] Thin prep Papanicolaou smear with manual screeningOrdered By: Dr. Feldman on 08-08-2022 Thin prep Papanicolaou smear with manual screening 3 5-15 [facility] Urine blood detectionOrdered By: Dr. Feldman on 08-08-2022 RBC Ql (U) Negative Negative [facility] RBC Ql (U) 0 SEEN /hpf 0-5 [facility] Urine clarityOrdered By: Dr. Feldman on 08-08-2022 Clarity (U) Clear Clear [facility] Urine color determinationOrd ered By: Dr. Feldman on 08-08-2022 Color (U) Yellow Yellow [facility] Urine glucose detectionOrder ed By: Dr. Feldman on 08-08-2022 Glucose Ql (U) Normal mg/dl Normal [facility] Urine leukocyte esterase det ection by dipstickOrdered By: Dr. Feldman on 08-08-2022 Leukocyte esterase Test strip Ql (U) Negative Negative [facility] Urine pHOrdered By: Dr. Feldman o n 08-08-2022 pH (U) 8.0 [pH] 5.0 - 8.0 [facility] Urine sediment bacteria coun t by microscopy (number/high power field)Ordered By: Dr. Feldman on 08-08-2022 Bacteria LM.HPF (Urine sed) [#/Area] 1 /[HPF] None Seen [facility] Urine specific gravity measu rementOrdered By: Dr. Feldman on 08-08-2022 Specific gravity (U) [Rel density] 1.015 1.002-1.03 0 [facility] Urobilinogen Auto test strip Ql (U)Ordered By: Dr. Feldman on 08-08-2022 Urobilinogen Ql (U) Normal mg/dl Normal [facility] CARECOORDon 08-07-2022 DEBBIE WAS ABLE TO SPEAK WI TH PT'S [employer] [facility] [employer] AGUSTIN THIS MORNING. SHE SAID AT THIS TIME, OUTPT MEDICATION PAYMENT HAS STILL NOT GONE THROUGH, BUT THEY WILL CONTINUE TO WORK ON THIS. SHE ALSO TOLD ME SHE WILL FOLLOW UP WITH PT. SPOKE WITH PT AND MOM, JUST FINISHED PLASMAPHERESIS. WILL GET TUNNELED LINE OUT AND DISCHARGE TO HOME LATER TODAY. AWARE AGUTSIN FROM [facility] WILL BE IN CONTACT. Normal [facility] CBC W Auto Differential pane l (Bld)Ordered By: Chris Foley on 08-07-2022 Basophils (Bld) [#/Vol] 0.1 10*3/uL 0.0 - 0.2 10*3/uL [facility] Basophils/100 WBC (Bld) 0.8 % 0.0 - 2.0 % [facility] Eosinophils (Bld) [#/Vol] 0.3 10*3/uL 0.0 - 0.5 10*3/uL [facility] Eosinophils/100 WBC (Bld) 4.7 % 1.0 - 6.0 % [facility] Erythrocyte distribution width (RBC) [Ratio] 14.2 % 11.5 - 14.5 % [facility] Hematocrit (Bld) [Volume fraction] 36.5 % 35.0 - 47.0 % [facility] Hemoglobin (Bld) [Mass/Vol] 11.8 g/dL 11.7 - 16.0 g/dL [facility] Interpretation and review of laboratory results Abnormal [facility] Lymphocytes (Bld) [#/Vol] 1.8 10*3/uL 1.0 - 4.3 10*3/uL [facility] Lymphocytes/100 WBC (Bld) 25.6 % 20.0 - 40.0 % [facility] MCH (RBC) [Entitic mass] 27.9 pg 26.0 - 34.0 pg [facility] MCHC (RBC) [Mass/Vol] 32.4 % 32.0 - 36.0 % [facility] MCV (RBC) [Entitic vol] 86.1 fL 80.0 - 98.0 fL [facility] Monocytes (Bld) [#/Vol] 0.4 10*3/uL 0.0 - 0.8 10*3/uL [facility] Monocytes/100 WBC (Bld) 5.9 % 2.0 - 10.0 % [facility] Neutrophils (Bld) [#/Vol] 4.4 10*3/uL 1.8 - 7.0 10*3/uL [facility] Neutrophils/100 WBC (Bld) 63.0 % 40.0 - 80.0 % [facility] Nucleated RBC/100 WBC (Bld) [Ratio] 0.0 % [facility] Platelet mean volume (Bld) [Entitic vol] 7.2 fL Low 7.4 - 12.4 fL [facility] Platelets (Bld) [#/Vol] 228 10*3/uL 140 - 440 10*3/uL [facility] RBC (Bld) [#/Vol] 4.24 10*6/uL 3.8 - 5.20 10*6/uL [facility] WBC (Bld) [#/Vol] 6.9 10*3/uL 3.6 - 10.7 10*3/uL [facility] Comprehensive metabolic 1998 panelon 08-07-2022 Albumin [Mass/Vol] 4.6 g/dL 3.5 - 5.0 g/dL [facility] ALP [Catalytic activity/Vol] 34 U/L Low 38 - 126 U/L [facility] ALT [Catalytic activity/Vol] 15 U/L 0 - 34 U/L [facility] Anion gap [Moles/Vol] 10 mmol/L 3 - 13 mmol/L [facility] AST [Catalytic activity/Vol] 25 U/L 15 - 46 U/L [facility] Bilirubin [Mass/Vol] 0.3 mg/dL 0.2 - 1 .3 mg/dL [facility] Calcium [Mass/Vol] 9.1 mg/dL 8.4 - 10. 4 mg/dL [facility] Chloride [Moles/Vol] 111 mmol/L High 98 - 10 7 mmol/L [facility] CO2 [Moles/Vol] 20 mmol/L Low 22 - 30 mmol/L [facility] Creatinine [Mass/Vol] 0.70 mg/dL 0.52 - 1.04 mg/dL [facility] GFR/1.73 sq M.predicted MDRD (S/P/Bld) [Vol rate/Area] - PINF [facility] Comment on above: Calculation based on the Chronic Kidney Disease Epidemiology Collaboration (CKD-EPI) equation refit without adjustment for race Glucose [Mass/Vol] 92 mg/dL 70 - 100 mg/dL [facility] Interpretation and review of laboratory results Abnormal [facility] Potassium [Moles/Vol] 3.8 mmol/L 3.5 - 5.1 mmol/L [facility] Protein [Mass/Vol] 6.2 g/dL Low 6.3 - 8.2 g/dL [facility] Sodium [Moles/Vol] 140 mmol/L 135 - 145 mmol/L [facility] Urea nitrogen [Mass/Vol] 13 mg/dL 7 - 17 mg/dL [facility] Nursing Noteon 08-07-2022 Nursing Note To IR for Tunnel Hem o dialysis catheter Pt positioned, prepped and draped per protocol 28 cm tunnel HD removed pressure held to site 10 min site benign dry dressing applied. . Pt tolerated procedure well, pt denies complaints post. Pt to her room.. Normal [facility] RF Guidance for removal of t unneled CV catheteron 08-07-2022 Patient Name: DOUG FLANAGAN : 1990 Exam Date/Time: 08/07/2022 15:49 Procedure: IR CVC TUNNELED CATHETER REMOVAL Ordering Provider: CANTOR PRETI Reason For Exam: MYASTHENIC CRISIS Right internal jugular vein tunneled dialysis catheter removal Using sterile technique and lidocaine for local anesthesia, the existing catheter was removed. Compression was applied to achieve hemostasis. Dressings were placed. Report Dictated on Electronically Signed By: Otis Denise Electronically Signed Date/Time: 08/07/2022 3:52 PM EDT [facility] Otis Denise MD - 08/07/2022 Patient Name: DOUG FLANAGAN : 1990 Exam Date/Time: 08/07/2022 15:49 Procedure: IR CVC TUNNELED CATHETER REMOVAL Ordering Provider: CANTOR PRETI Reason For Exam: MYASTHENIC CRISIS Right internal jugular vein tunneled dialysis catheter removal Using sterile technique and lidocaine for local anesthesia, the existing catheter was removed. Compression was applied to achieve hemostasis. Dressings were placed. Report Dictated on Electronically Signed By: Otis Denise Electronically Signed Date/Time: 08/07/2022 3:52 PM EDT [facility] Radiology Study observation (narrative) [facility] RF Guidance for removal of t unneled CV catheterOrdered By: Otis Denise on 08-07-2022 [facility] Work Phone: Liu 08-06-2022 DEBBIE Duncan met with nissa arteaga for follow-up on psychology consult which was completed on 08/03. Pt experiencing anxiety while in the hospital surrounding being away from her son, dog and attempting to get her medication approved. Pt reports doing better. Endorses some situational anxiety as mentioned above but denies any chronic mental health symptoms. Pt reports she has been utilize her coping skills such as meditation, word books, and talking to her family. Discussed outpatient MH services with pt. At this time pt denies need for behavioral health support as she reports her anxiety is related to situational concerns. Dakota did educate pt on [facility] which provides outpatient/crisis MH services in her area. Pt was also provided with [facility] business card for behavioral health support while in the community. Pt thanked Dakota and was agreeable to contact LISArun if needed. Normal [facility] CBC W Auto Differential pane l (Bld)on 08-06-2022 Basophils (Bld) [#/Vol] 0.0 10*3/uL 0.0 - 0.2 10*3/uL [facility] Basophils/100 WBC (Bld) 0.6 % 0.0 - 2.0 % [facility] Eosinophils (Bld) [#/Vol] 0.3 10*3/uL 0.0 - 0.5 10*3/uL [facility] Eosinophils/100 WBC (Bld) 4.3 % 1.0 - 6.0 % [facility] Erythrocyte distribution width (RBC) [Ratio] 14.1 % 11.5 - 14.5 % [facility] Hematocrit (Bld) [Volume fraction] 35.1 % 35.0 - 47.0 % [facility] Hemoglobin (Bld) [Mass/Vol] 11.6 g/dL Low 11.7 - 16.0 g/dL [facility] Interpretation and review of laboratory results Abnormal [facility] Lymphocytes (Bld) [#/Vol] 1.5 10*3/uL 1.0 - 4.3 10*3/uL [facility] Lymphocytes/100 WBC (Bld) 21.5 % 20.0 - 40.0 % [facility] MCH (RBC) [Entitic mass] 28.2 pg 26.0 - 34.0 pg [facility] MCHC (RBC) [Mass/Vol] 32.9 % 32.0 - 36.0 % [facility] MCV (RBC) [Entitic vol] 85.7 fL 80.0 - 98.0 fL [facility] Monocytes (Bld) [#/Vol] 0.4 10*3/uL 0.0 - 0.8 10*3/uL [facility] Monocytes/100 WBC (Bld) 6.2 % 2.0 - 10.0 % [facility] Neutrophils (Bld) [#/Vol] 4.8 10*3/uL 1.8 - 7.0 10*3/uL [facility] Neutrophils/100 WBC (Bld) 67.4 % 40.0 - 80.0 % [facility] Nucleated RBC/100 WBC (Bld) [Ratio] 0.0 % [facility] Platelet mean volume (Bld) [Entitic vol] 7.3 fL Low 7.4 - 12.4 fL [facility] Platelets (Bld) [#/Vol] 215 10*3/uL 140 - 440 10*3/uL [facility] RBC (Bld) [#/Vol] 4.10 10*6/uL 3.8 - 5.20 10*6/uL [facility] WBC (Bld) [#/Vol] 7.1 10*3/uL 3.6 - 10.7 10*3/uL [facility] Comprehensive metabolic 1998 panelon 08-06-2022 Albumin [Mass/Vol] 4.3 g/dL 3.5 - 5.0 g/dL [facility] ALP [Catalytic activity/Vol] 28 U/L Low 38 - 126 U/L [facility] ALT [Catalytic activity/Vol] 11 U/L 0 - 34 U/L [facility] Anion gap [Moles/Vol] 7 mmol/L 3 - 13 mmol/L [facility] AST [Catalytic activity/Vol] 24 U/L 15 - 46 U/L [facility] Bilirubin [Mass/Vol] 0.4 mg/dL 0.2 - 1 .3 mg/dL [facility] Calcium [Mass/Vol] 8.7 mg/dL 8.4 - 10. 4 mg/dL [facility] Chloride [Moles/Vol] 110 mmol/L High 98 - 10 7 mmol/L [facility] CO2 [Moles/Vol] 22 mmol/L 22 - 30 mmol/L [facility] Creatinine [Mass/Vol] 0.64 mg/dL 0.52 - 1.04 mg/dL [facility] GFR/1.73 sq M.predicted MDRD (S/P/Bld) [Vol rate/Area] - PINF [facility] Comment on above: Calculation based on the Chronic Kidney Disease Epidemiology Collaboration (CKD-EPI) equation refit without adjustment for race Glucose [Mass/Vol] 93 mg/dL 70 - 100 mg/dL [facility] Interpretation and review of laboratory results Abnormal [facility] Potassium [Moles/Vol] 3.7 mmol/L 3.5 - 5.1 mmol/L [facility] Protein [Mass/Vol] 5.8 g/dL Low 6.3 - 8.2 g/dL [facility] Sodium [Moles/Vol] 139 mmol/L 135 - 145 mmol/L [facility] Urea nitrogen [Mass/Vol] 11 mg/dL 7 - 17 mg/dL [facility] Progress Noteon 08-06-2022 Progress Note Nutrition update completed. Chart reviewed. Patient to be monitored and followed by the diet building maintenance technician. Dietitian available upon request. Normal [facility] Progress Note Paged by nursing sta ff that the patient was having increasing left chest pain at the site of her line placement. On my evaluation there is no crepitus, discharge, erythema, or edema. Patient does not appear to be in any respiratory distress and is having no shortness of breath. She states that she was concerned that she may have a clot in the line as it feels similar but not completely the same as when she had a clot on the right side in the line. She states however that the Plex treatment today was able to run without any difficulties. Patient does have pain with flexion of her neck and rotation towards the left side. I do believe that this is most likely musculoskeletal pain as she complains that the pain seems more left-sided in her neck with radiation from her chest port. After reviewing her medications I did explain to her that I would like to try a muscle relaxant as I believe that her pain is musculoskeletal and etiology. After reviewing her orders I did place an order for tizanidine 2 mg p.o. I informed the nurse that her blood pressure has been on the slightly softer side and that she is not to get up out of bed without first using her call light and having people present to help her. Vitals were reviewed. Geovani Srivastava DO, MS, PGY-1 08/06/22 at 12:00 AM Shortly after evaluating patient the nurse did message me that the patient had googled tizanidine and it was listed as one of the top 3 medications not to receive with myasthenia's gravis. Based on this the patient refused the medication. Nursing was asking for more Toradol for the patient however after reviewing the patient's MAR she has had several days of Toradol. I did inform the nurse that we could do p.o. ibuprofen however did not want to give any further ketorolac. I also explained to the nurse that we could try heat to the area as well as a lidocaine patch. The nurse did state that she just given the patient Ativan and I did not receive any further communications regarding this patient. Geovani Srivastava DO, MS, PGY-1 08/06/22 at 3:31 AM [facility] CARECOORDon 08-05-2022 [employer]ARE[place] SPOKE WITH PT AND EMILE Greenwood AT BEDSIDE THIS MORNING. PT HAVING PLASMAPHERESIS. INFORMED THEM TALKED WITH AGUSTIN SAHA YESTERDAY AND WILL TOUCH BASE WITH HER TOMORROW. MOM HAD QUESTIONS ABOUT FILLING A FAMILY APPEAL FOR OUTPT IV MEDS, ALL QUESTIONS ANSWERED. [facility] CBC W Auto Differential pane l (Bld)on 08-05-2022 Basophils (Bld) [#/Vol] 0.1 10*3/uL 0.0 - 0.2 10*3/uL [facility] Basophils/100 WBC (Bld) 1.1 % 0.0 - 2.0 % [facility] Eosinophils (Bld) [#/Vol] 0.3 10*3/uL 0.0 - 0.5 10*3/uL [facility] Eosinophils/100 WBC (Bld) 3.9 % 1.0 - 6.0 % [facility] Erythrocyte distribution width (RBC) [Ratio] 14.3 % 11.5 - 14.5 % [facility] Hematocrit (Bld) [Volume fraction] 37.8 % 35.0 - 47.0 % [facility] Hemoglobin (Bld) [Mass/Vol] 12.3 g/dL 11.7 - 16.0 g/dL [facility] Interpretation and review of laboratory results Abnormal [facility] Lymphocytes (Bld) [#/Vol] 1.9 10*3/uL 1.0 - 4.3 10*3/uL [facility] Lymphocytes/100 WBC (Bld) 22.2 % 20.0 - 40.0 % [facility] MCH (RBC) [Entitic mass] 28.0 pg 26.0 - 34.0 pg [facility] MCHC (RBC) [Mass/Vol] 32.4 % 32.0 - 36.0 % [facility] MCV (RBC) [Entitic vol] 86.3 fL 80.0 - 98.0 fL [facility] Monocytes (Bld) [#/Vol] 0.5 10*3/uL 0.0 - 0.8 10*3/uL [facility] Monocytes/100 WBC (Bld) 5.8 % 2.0 - 10.0 % [facility] Neutrophils (Bld) [#/Vol] 5.9 10*3/uL 1.8 - 7.0 10*3/uL [facility] Neutrophils/100 WBC (Bld) 67.0 % 40.0 - 80.0 % [facility] Nucleated RBC/100 WBC (Bld) [Ratio] 0.0 % [facility] Platelet mean volume (Bld) [Entitic vol] 7.3 fL Low 7.4 - 12.4 fL [facility] Platelets (Bld) [#/Vol] 217 10*3/uL 140 - 440 10*3/uL [facility] RBC (Bld) [#/Vol] 4.39 10*6/uL 3.8 - 5.20 10*6/uL [facility] WBC (Bld) [#/Vol] 8.7 10*3/uL 3.6 - 10.7 10*3/uL [facility] Comprehensive metabolic 1998 panelon 08-05-2022 Albumin [Mass/Vol] 4.5 g/dL 3.5 - 5.0 g/dL [facility] ALP [Catalytic activity/Vol] 37 U/L Low 38 - 126 U/L [facility] ALT [Catalytic activity/Vol] 12 U/L 0 - 34 U/L [facility] Anion gap [Moles/Vol] 9 mmol/L 3 - 13 mmol/L [facility] AST [Catalytic activity/Vol] 22 U/L 15 - 46 U/L [facility] Bilirubin [Mass/Vol] 0.4 mg/dL 0.2 - 1 .3 mg/dL [facility] Calcium [Mass/Vol] 8.8 mg/dL 8.4 - 10. 4 mg/dL [facility] Chloride [Moles/Vol] 111 mmol/L High 98 - 10 7 mmol/L [facility] CO2 [Moles/Vol] 22 mmol/L 22 - 30 mmol/L [facility] Creatinine [Mass/Vol] 0.68 mg/dL 0.52 - 1.04 mg/dL [facility] GFR/1.73 sq M.predicted MDRD (S/P/Bld) [Vol rate/Area] - PINF [facility] Comment on above: Calculation based on the Chronic Kidney Disease Epidemiology Collaboration (CKD-EPI) equation refit without adjustment for race Glucose [Mass/Vol] 91 mg/dL 70 - 100 mg/dL [facility] Interpretation and review of laboratory results Abnormal [facility] Potassium [Moles/Vol] 3.8 mmol/L 3.5 - 5.1 mmol/L [facility] Protein [Mass/Vol] 6.4 g/dL 6.3 - 8.2 g/dL [facility] Sodium [Moles/Vol] 141 mmol/L 135 - 145 mmol/L [facility] Urea nitrogen [Mass/Vol] 14 mg/dL 7 - 17 mg/dL [facility] Laboratory - Drug toxicology on 08-05-2022 lamoTRIgine [Mass/Vol] 8.5 ug/mL 3.0 - 15.0 ug/mL [facility] Comment on above: INTERPRETIVE INFORMA TION: Lamotrigine Therapeutic Range: 3.0-15.0 ug/mL Toxic: Greater than or equal to 20 ug/mL Pharmacokinetics varies widely, particularly with co-medications and/or compromised renal function. Adverse effects may include dizziness, somnolence, nausea and vomiting. Performed By: [facility] [address] [place], [place] [id number] Tree Surgeon Helper: Maya Mendieta MD, PhD 10-Hydroxycarbazepine [Mass/Vol] <1 Low 3 - 35 ug/mL [facility] Comment on above: INTERPRETIVE INFORMA TION: Oxcarbazepine Therapeutic range: 3-35 ug/mL. Toxic: Greater than 40 ug/mL This test measures monohydroxyoxcarbazepine (MHD). Adverse effects may include dizziness, fatigue, nausea, headache, somnolence, ataxia and tremor. This test was developed and its performance characteristics determined by [facility]. It has not been cleared or approved by the [place] Food and Drug Administration. This test was performed in a CLIA certified laboratory and is intended for clinical purposes. Performed By: [facility] [address] [place] [address] Tree Surgeon Helper: Maya Mendieta MD, PhD Zonisamide [Mass/Vol] 19 ug/mL 10 - 4 0 ug/mL [facility] Comment on above: INTERPRETIVE INFORMA TION: Zonisamide Therapeutic range: Not well established. Toxic: Greater than 80 ug/mL The proposed therapeutic range for seizure control is 10-40 ug/mL. Toxic concentrations may cause coma, seizures and cardiac abnormalities. Pharmacokinetics varies widely, particularly with co-medications and/or compromised renal function. Performed By: [facility] [address] [place], [place] [id number] Tree Surgeon Helper: Maya Mendieta MD, PhD No Panel Informationon 08-05 [facility] Interpretation and review of laboratory results Abnormal [facility] Progress Noteon 08-05-2022 Progress Note # 4 TPE completed to day Pt tolerated well Flowsheets in bed side chart Normal [facility] Progress Note Indications for Dial ysis No data to display Subjective Interval History: Doug Flanagan has none. Did fine with pheresis Medications Current Facility-Administered Medications: acetaminophen (Tylenol) tablet 650 mg, 650 mg, Oral, q6h PRN, 650 mg at 08/04/22 7338 OR acetaminophen (Tylenol) suppository 650 mg, 650 mg, Rectal, q6h PRN, Antwon Nascimento, acetaminophen (Tylenol) tablet 1,000 mg, 1,000 mg, Oral, TID, Tanner Wang MD, 1,000 mg at 08/05/22 0925 apixaban (Eliquis) tablet 5 mg, 5 mg, Oral, BID, Antwon Koduru, DO, 5 mg at 08/05/22 0823 calcium gluconate 1,900 mg in sodium chloride 0.9 % 100 mL IVPB, 1,900 mg, IntraVENous, Once in dialysis, Get Manjarrez MD, 1,900 mg at 08/05/22 1038 citrate dextrose (ACD-A) infusion, 100-200 mL/hr, IntraCATHeter, Continuous, Renny Cantor MD, Last Rate: 100 mL/hr at 08/01/22 1146, 1,000 mL at 08/01/22 1146 citrate dextrose (ACD-A) infusion, 100-200 mL/hr, CRRT, Continuous, Get Manjarrez MD, Last Rate: 1,000 mL/hr at 08/05/22 1037, 1,000 mL/hr at 08/05/22 1037 docusate sodium (Colace) capsule 100 mg, 100 mg, Oral, BID PRN, Tanner Wang MD escitalopram (Lexapro) tablet 10 mg, 10 mg, Oral, Daily, Antwon Orellanau, DO, 10 mg at 08/04/22 1950 heparin flush injection 100 Units, 100 Units, IntraCATHeter, q12h, Juliana Tvaares MD, 100 Units at 08/05/22 0823 heparin flush injection 100 Units, 100 Units, IntraCATHeter, PRN, Juliana Tavares MD heparin injection 2,100 Units, 2,100 Units, IntraCATHeter, PRN, Renny Cantor MD, 2,100 Units at 08/03/22 1404 heparin injection 2,200 Units, 2,200 Units, IntraCATHeter, PRN, Renny Cantor MD, 2,200 Units at 08/03/22 1404 hydrOXYzine pamoate (Vistaril) capsule 25 mg, 25 mg, Oral, q6h PRN, Tanner Wang MD, 25 mg at 08/03/22 1852 ibuprofen tablet 600 mg, 600 mg, Oral, q6h PRN, Tanner Wang MD lamoTRIgine (LaMICtal) tablet 100 mg, 100 mg, Oral, Daily, Vinuth Koduru, DO, 100 mg at 08/05/22 08 lamoTRIgine (LaMICtal) tablet 250 mg, 250 mg, Oral, Nightly, Vinuth Koduru, DO, 250 mg at 08/04/221952 LORazepam (Ativan) tablet 1 mg, 1 mg, Oral, q12h PRN, Vinuth Koduru, DO, 1 mg at 08/05/22 0925 ondansetron ODT (Zofran-ODT) disintegrating tablet 4 mg, 4 mg, Oral, q8h PRN OR ondansetron (Zofran) injection 4 mg, 4 mg, IntraVENous, q6h PRN, Vinuth Koduru, DO, 4 mg at 07/31/22 162 OXcarbazepine (Trileptal) tablet 150 mg, 150 mg, Oral, Daily, Vinuth Koduru, DO, 150 mg at 08/04/22 214 polyethylene glycol (PEG) 3350 (Miralax) packet 17 g, 17 g, Oral, Daily PRN, Vinuth Koduru, DO sennosides (Senokot) tablet 17.2 mg, 2 tablet, Oral, BID PRN, Tanner Wang MD sodium chloride 0.9 % infusion, 5-250 mL/hr, IntraVENous, PRN, Vinuth Koduru, DO sodium chloride 0.9% (NS) flush 10 mL, 10 mL, IntraCATHeter, q12h, Juliana Tavares MD, 10 mL at 08/05/22 0823 sodium chloride 0.9% (NS) flush 10 mL, 10 mL, IntraCATHeter, PRN, Juliana Tavares MD sodium chloride 0.9% (NS) flush 5-40 mL, 5-40 mL, IntraVENous, q12h, Vinuth Koduru, DO, 10 mL at 08/05/22 0545 sodium chloride 0.9% (NS) flush 5-40 mL, 5-40 mL, IntraVENous, PRN, Vinuth Koduru, DO zonisamide (Zonegran) capsule 200 mg, 200 mg, Oral, Daily, Vinuth Koduru, DO, 200 mg at 08/05/22 0823 zonisamide (Zonegran) capsule 300 mg, 300 mg, Oral, Nightly, Antwon Nascimento, , 300 mg at 08/04/221952 Objective Physical Exam Physical Exam NAD LIJTDC Non focal neuro +weakness Relevant Results Vital signs in last 24 hours: Temp: [36.1 ?C (97 ?F)-36.8 ?C (98.2 ?F)] 36.1 ?C (97 ?F) Heart Rate: [77-95] 77 Resp: [16] 16 BP: (107-122)/(69-78) 107/69 Intake/Output this shift: No intake/output data recorded. Intake/Output last 3 shifts: I/O last 3 completed shifts: In: 7.8 (0.1 mL/kg) [I.V.:4.3 (0.1 mL/kg); IV Piggyback:3.5] Out: - (0 mL/kg) Weight: 77.1 kg Labs: Results from last 7 days Lab Units 08/05/22 0543 WBC AUTO 10*3/uL 8.7 RBC AUTO 10*6/uL 4.39 HEMOGLOBIN g/dL 12.3 HEMATOCRIT % 37.8 Results from last 7 days Lab Units 08/05/22 0543 08/01/22 0359 07/31/22 0641 SODIUM mmol/L 141 < > 139 POTASSIUM mmol/L 3.8 < > 3.3* CHLORIDE mmol/L 111* < > 109* CO2 mmol/L 22 < > 22 BUN mg/dL 14 < > 8 CREATININE mg/dL 0.68 < > 0.67 CALCIUM mg/dL 8.8 < > 8.6 MAGNESIUM mg/dL -- -- 1.7 BILIRUBIN TOTAL mg/dL 0.4 < > 0.7 ALT U/L 12 < > 8 AST U/L 22 < > 17 < > = values in this interval not displayed. No lab exists for component: FATCASTU Principal Problem: Myasthenic crisis (HCC) Active Problems: Adjustment reaction with anxiety and depression - pheresis #4 and #5 and Wednesday respectively - get TDC removed on Wednesday prior to discharge Renny Cantor MD 08/05/2022 10:51 AM Normal [facility] DEBBIE 08-04-2022 DEBBIE SPOKE WITH PT, DOING GOOD THIS MORNING. SHE DID TALK WITH [facility] [place] BROADBAND ENGINEER AGUSTIN YESTERDAY. GAVE ME HERE #, . I DID SPEAK WITH AGUSTIN, SHE IS WORKING TO GET PT'S OUTPT IV MED APPROVED. SHE WILL TOUCH BASE WITH ME TOWARDS END OF WEEK. PLAN FOR PLASMAPHERESIS TOMORROW. DISCHARGE TO HOME WHEN MEDICALLY READY. Normal [facility] CBC W Auto Differential pane l (Bld)on 08-04-2022 Basophils (Bld) [#/Vol] 0.1 10*3/uL 0.0 - 0.2 10*3/uL [facility] Basophils/100 WBC (Bld) 0.7 % 0.0 - 2.0 % [facility] Eosinophils (Bld) [#/Vol] 0.3 10*3/uL 0.0 - 0.5 10*3/uL [facility] Eosinophils/100 WBC (Bld) 4.0 % 1.0 - 6.0 % [facility] Erythrocyte distribution width (RBC) [Ratio] 14.4 % 11.5 - 14.5 % [facility] Hematocrit (Bld) [Volume fraction] 37.3 % 35.0 - 47.0 % [facility] Hemoglobin (Bld) [Mass/Vol] 12.1 g/dL 11.7 - 16.0 g/dL [facility] Interpretation and review of laboratory results Normal [facility] Lymphocytes (Bld) [#/Vol] 1.8 10*3/uL 1.0 - 4.3 10*3/uL [facility] Lymphocytes/100 WBC (Bld) 22.6 % 20.0 - 40.0 % [facility] MCH (RBC) [Entitic mass] 27.9 pg 26.0 - 34.0 pg [facility] MCHC (RBC) [Mass/Vol] 32.4 % 32.0 - 36.0 % [facility] MCV (RBC) [Entitic vol] 86.3 fL 80.0 - 98.0 fL [facility] Monocytes (Bld) [#/Vol] 0.6 10*3/uL 0.0 - 0.8 10*3/uL [facility] Monocytes/100 WBC (Bld) 6.9 % 2.0 - 10.0 % [facility] Neutrophils (Bld) [#/Vol] 5.4 10*3/uL 1.8 - 7.0 10*3/uL [facility] Neutrophils/100 WBC (Bld) 65.8 % 40.0 - 80.0 % [facility] Nucleated RBC/100 WBC (Bld) [Ratio] 0.0 % [facility] Platelet mean volume (Bld) [Entitic vol] 7.4 fL 7.4 - 12.4 fL [facility] Platelets (Bld) [#/Vol] 214 10*3/uL 140 - 440 10*3/uL [facility] RBC (Bld) [#/Vol] 4.33 10*6/uL 3.8 - 5.20 10*6/uL [facility] WBC (Bld) [#/Vol] 8.2 10*3/uL 3.6 - 10.7 10*3/uL [facility] Comprehensive metabolic 1998 panelon 08-04-2022 Albumin [Mass/Vol] 4.1 g/dL 3.5 - 5.0 g/dL [facility] ALP [Catalytic activity/Vol] 27 U/L Low 38 - 126 U/L [facility] ALT [Catalytic activity/Vol] 10 U/L 0 - 34 U/L [facility] Anion gap [Moles/Vol] 8 mmol/L 3 - 13 mmol/L [facility] AST [Catalytic activity/Vol] 19 U/L 15 - 46 U/L [facility] Bilirubin [Mass/Vol] 0.4 mg/dL 0.2 - 1 .3 mg/dL [facility] Calcium [Mass/Vol] 8.9 mg/dL 8.4 - 10. 4 mg/dL [facility] Chloride [Moles/Vol] 110 mmol/L High 98 - 10 7 mmol/L [facility] CO2 [Moles/Vol] 23 mmol/L 22 - 30 mmol/L [facility] Creatinine [Mass/Vol] 0.69 mg/dL 0.52 - 1.04 mg/dL [facility] GFR/1.73 sq M.predicted MDRD (S/P/Bld) [Vol rate/Area] - PINF [facility] Comment on above: Calculation based on the Chronic Kidney Disease Epidemiology Collaboration (CKD-EPI) equation refit without adjustment for race Glucose [Mass/Vol] 90 mg/dL 70 - 100 mg/dL [facility] Interpretation and review of laboratory results Abnormal [facility] Potassium [Moles/Vol] 3.6 mmol/L 3.5 - 5.1 mmol/L [facility] Protein [Mass/Vol] 5.6 g/dL Low 6.3 - 8.2 g/dL [facility] Sodium [Moles/Vol] 142 mmol/L 135 - 145 mmol/L [facility] Urea nitrogen [Mass/Vol] 13 mg/dL 7 - 17 mg/dL [facility] Laboratory - Drug toxicology on 08-04-2022 lamoTRIgine [Mass/Vol] 5.1 ug/mL 3.0 - 15.0 ug/mL [facility] Comment on above: INTERPRETIVE INFORMA TION: Lamotrigine Therapeutic Range: 3.0-15.0 ug/mL Toxic: Greater than or equal to 20 ug/mL Pharmacokinetics varies widely, particularly with co-medications and/or compromised renal function. Adverse effects may include dizziness, somnolence, nausea and vomiting. Performed By: [facility] [address] [place] [id number] Tree Surgeon Helper: Maya Mendieta MD, PhD No Panel Informationon 08-04 [facility] CARECOORDon 08-03-2022 [facility] Assessment Date: 08/03/2022 Patient Name: Doug Flanagan : 1990 Patient Information Source of Information: Patient Cognition/Language: WFL - Within Functional Limits Permission given to speak with patient public service representative/caregiver as indicated: Yes Confirmation of Payer with patient/family: Yes Payer Name: [employer] : No Confirmation of Primary Care Physician: Confirmed PCP Name: DR PERDOMO Primary Caregiver: Self If assistance needed, confirmed caregiver ready, willing and able to care for patient at discharge: Confirmed with: Living Arrangements Current Residence: Private Residence Number of Floors Number of Entry Steps: Bed/Bath Levels: Facility: Facility Name: Plan to Return: Lives with: (10 YO SON) Support Systems: Parent Activities of Daily Living Ambulation: Independent Bathing/Dressing: Independent Elimination/Continence/T oileting: Independent Feeding: Independent Who Assists with Activities of Daily Living: Instrumental Activities of Daily Living Prescription Coverage: Yes Pharmacy Used: Medication Management: Independent Transportation/Shopping: Transportation Mode: Needs Assistance with Transportation at Discharge: Meal Preparation: Independent Laundry/Cleaning: Independent Finances/Bill Paying: Independent Communication: Independent Types of Care Services/Equipment Utilized Care Services: (NA) Dialysis Type: NA Durable Medical Equipment: (NA) Patient's Goal/Discharge Plan Patient expects to be discharged to: HOME Discharge Planning Actions: Continue to follow Patient's Choice Rights and [employer] and Collaborative Relationships Disclosed as Indicated for Post-Acute Care: Interdisciplinary Team Engagement: Social Work Referral for: Additional Information: SPOKE WITH PT AND MOTHER AT BEDSIDE, INTRODUCED SELF AND EXPLAINED ROLE. PT HERE WITH MYASTHENIC CRISIS. [facility]PHRO FOLLOWING. NEURO HAS SIGNED OFF. WILL HAVE PLASMAPHERESIS TODAY. [facility] CONSULT PENDING. PER PT, HER INSURANCE DID NOT APPROVE HER IV MEDICATION. [facility] BROADBAND ENGINEER. I ALSO TRIED TO CALL DR GILMORE'S OFFICE TO CHECK ON STATUS OF MEDICATION, OFFICE IS CLOSED TODAY. WILL TRY TOMORROW. ANTICIPATE DISCHARGE TO HOME WHEN COMPLETED PLASMAPHERESIS TREATMENTS. Michaela Caceres RN Normal [facility] CBC W Auto Differential pane l (Bld)on 08-03-2022 Basophils (Bld) [#/Vol] 0.0 10*3/uL 0.0 - 0.2 10*3/uL [facility] Basophils/100 WBC (Bld) 0.4 % 0.0 - 2.0 % [facility] Eosinophils (Bld) [#/Vol] 0.3 10*3/uL 0.0 - 0.5 10*3/uL [facility] Eosinophils/100 WBC (Bld) 4.5 % 1.0 - 6.0 % [facility] Erythrocyte distribution width (RBC) [Ratio] 14.3 % 11.5 - 14.5 % [facility] Hematocrit (Bld) [Volume fraction] 37.4 % 35.0 - 47.0 % [facility] Hemoglobin (Bld) [Mass/Vol] 12.4 g/dL 11.7 - 16.0 g/dL [facility] Interpretation and review of laboratory results Normal [facility] Lymphocytes (Bld) [#/Vol] 1.8 10*3/uL 1.0 - 4.3 10*3/uL [facility] Lymphocytes/100 WBC (Bld) 23.9 % 20.0 - 40.0 % [facility] MCH (RBC) [Entitic mass] 28.3 pg 26.0 - 34.0 pg [facility] MCHC (RBC) [Mass/Vol] 33.1 % 32.0 - 36.0 % [facility] MCV (RBC) [Entitic vol] 85.5 fL 80.0 - 98.0 fL [facility] Monocytes (Bld) [#/Vol] 0.5 10*3/uL 0.0 - 0.8 10*3/uL [facility] Monocytes/100 WBC (Bld) 6.3 % 2.0 - 10.0 % [facility] Neutrophils (Bld) [#/Vol] 5.0 10*3/uL 1.8 - 7.0 10*3/uL [facility] Neutrophils/100 WBC (Bld) 64.9 % 40.0 - 80.0 % [facility] Nucleated RBC/100 WBC (Bld) [Ratio] 0.0 % [facility] Platelet mean volume (Bld) [Entitic vol] 7.7 fL 7.4 - 12.4 fL [facility] Platelets (Bld) [#/Vol] 210 10*3/uL 140 - 440 10*3/uL [facility] RBC (Bld) [#/Vol] 4.37 10*6/uL 3.8 - 5.20 10*6/uL [facility] WBC (Bld) [#/Vol] 7.6 10*3/uL 3.6 - 10.7 10*3/uL [facility] Comprehensive metabolic 1998 panelon 08-03-2022 Albumin [Mass/Vol] 4.3 g/dL 3.5 - 5.0 g/dL [facility] ALP [Catalytic activity/Vol] 38 U/L 38 - 126 U/L [facility] ALT [Catalytic activity/Vol] 11 U/L 0 - 34 U/L [facility] Anion gap [Moles/Vol] 10 mmol/L 3 - 13 mmol/L [facility] AST [Catalytic activity/Vol] 22 U/L 15 - 46 U/L [facility] Bilirubin [Mass/Vol] 0.3 mg/dL 0.2 - 1 .3 mg/dL [facility] Calcium [Mass/Vol] 8.8 mg/dL 8.4 - 10. 4 mg/dL [facility] Chloride [Moles/Vol] 110 mmol/L High 98 - 10 7 mmol/L [facility] CO2 [Moles/Vol] 21 mmol/L Low 22 - 30 mmol/L [facility] Creatinine [Mass/Vol] 0.68 mg/dL 0.52 - 1.04 mg/dL [facility] GFR/1.73 sq M.predicted MDRD (S/P/Bld) [Vol rate/Area] - PINF [facility] Comment on above: Calculation based on the Chronic Kidney Disease Epidemiology Collaboration (CKD-EPI) equation refit without adjustment for race Glucose [Mass/Vol] 93 mg/dL 70 - 100 mg/dL [facility] Interpretation and review of laboratory results Abnormal [facility] Potassium [Moles/Vol] 3.6 mmol/L 3.5 - 5.1 mmol/L [facility] Protein [Mass/Vol] 6.2 g/dL Low 6.3 - 8.2 g/dL [facility] Sodium [Moles/Vol] 141 mmol/L 135 - 145 mmol/L [facility] Urea nitrogen [Mass/Vol] 9 mg/dL 7 - 17 mg/dL [facility] Consulton 08-03-2022 Consult Department of Psychi atry Attending Consult Note Reason for Consult: health related anxiety Consulting Physician: Nallely Mccall, Ph.D Total Time Counselin minutes IDENTIFYING DATA: The patient is a 31 y.o. female admitted on 07/30/2022 with Myasthenic Crisis. History Obtained From: patient, EMR HISTORY OF PRESENT ILLNESS: Pt was alert, oriented, and participated. Pt reported frustration with her insurance denying her medication despite that she has been stable on it for 2 years; she is also having a hard time being away from her son (I was supposed to have an outpatient procedure and now I am still here). Pt described anxiety in the hospital, I guess I had a panic attack yesterday. Pt denied depressive symptoms; pt is hoping to be able to go home soon. Pt denied any SI/HI. At this time, no manic, no psychotic symptoms. Past Psychiatric History: Pt denied any previous psychiatric admissions and no previous suicide attempts. Pt is currently not in counseling. Pt is currently taking psychotropic medications: Lexapro, pt is also prescribed PRN Ativan (does not take daily). Pt reported that before this current Myasthenic crisis she was doing well; pt was diagnosed in 2018, had a hard time at that time, but feels she was coping well. Drug and Alcohol History: Pt denied any alcohol and drug use history. Social History: Pt is single and lives with her 10 year old son (he is my everything). Pt is home schooling him; he has autism. 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 Pt reported that her mom and dad are her main support (her father is watching her son while she is in the hospital); pt is having a hard time being away from her son. Current Medications Scheduled Meds:apixaban, 5 mg, Oral, BID docusate sodium, 100 mg, Oral, BID escitalopram, 10 mg, Oral, Daily heparin flush, 100 Units, IntraCATHeter, q12h lamoTRIgine, 100 mg, Oral, Daily lamoTRIgine, 250 mg, Oral, Nightly OXcarbazepine, 150 mg, Oral, Daily sodium chloride 0.9%, 10 mL, IntraCATHeter, q12h sodium chloride 0.9%, 5-40 mL, IntraVENous, q12h zonisamide, 200 mg, Oral, Daily zonisamide, 300 mg, Oral, Nightly MENTAL STATUS EXAM Mental Status Exam: Appearance: hospital gown Behavior: cooperative Activity normal Speech: spontaneous, normal rate Mood: depressed, anxious , Affect: tearful at times, congruent with mood Associations: goal directed Thought content: worries re being away from son; insurance stressor Thought process: logical, organized Orientation: oriented in all spheres Attention good Concentration good Insight: good Judgment: good Suicidal Intentions: no Suicidal Plan: no Impression : Adjustment Reaction with anxiety/ depressive symptoms Hx Anxiety Severity of stressors is moderate Source of stressors: health issues, being away from son PLAN: Session focused on decreasing depressive and anxiety symptoms, and supportive intervention. No SI/HI, pt is very future oriented. Discussed with the pt various treatment options including assessment for medications and outpatient follow up. Pt declined further assessment for medications. ER services reviewed. Safety planning was discussed in detail. Pt to call 911 or go directly to nearest ER for any suicidal or homicidal thoughts. Again, No SI/HI. Pt voiced clear understanding of all treatment plans. Thank you for consulting our services. Risk Management: no special precautions Normal [facility] Progress Noteon 08-03-2022 Progress Note Indications for Dial ysis No data to display Subjective Interval History: Doug Flanagan has none. Medications Current Facility-Administered Medications: acetaminophen (Tylenol) tablet 650 mg, 650 mg, Oral, q6h PRN, 650 mg at 07/31/222056 OR acetaminophen (Tylenol) suppository 650 mg, 650 mg, Rectal, q6h PRN, Vinuth Koduru, DO apixaban (Eliquis) tablet 5 mg, 5 mg, Oral, BID, Vinuth Koduru, DO, 5 mg at 08/03/22 0913 citrate dextrose (ACD-A) infusion, 100-200 mL/hr, IntraCATHeter, Continuous, Renny Cantor MD, Last Rate: 100 mL/hr at 08/01/22 1146, 1,000 mL at 08/01/22 1146 citrate dextrose (ACD-A) infusion, 100-200 mL/hr, CRRT, Continuous, Renny Cantor MD, Last Rate: 1,000 mL/hr at 08/03/22 1326, 1,000 mL/hr at 08/03/22 1326 docusate sodium (Colace) capsule 100 mg, 100 mg, Oral, BID, Tanner Wang MD, 100 mg at 08/03/22 0919 escitalopram (Lexapro) tablet 10 mg, 10 mg, Oral, Daily, Vinuth Koduru, DO, 10 mg at 08/02/22 2123 heparin flush injection 100 Units, 100 Units, IntraCATHeter, q12h, Juliana Tavares MD, 100 Units at 08/03/22 0911 heparin flush injection 100 Units, 100 Units, IntraCATHeter, PRN, Juliana Tavares MD heparin injection 2,100 Units, 2,100 Units, IntraCATHeter, PRN, Renny Cantor MD, 2,100 Units at 08/03/22 1404 heparin injection 2,200 Units, 2,200 Units, IntraCATHeter, PRN, Renny Cantor MD, 2,200 Units at 08/03/22 1404 hydrOXYzine pamoate (Vistaril) capsule 25 mg, 25 mg, Oral, q6h PRN, Tanner Wang MD, 25 mg at 08/02/22 1353 ketorolac (Toradol) injection 15 mg, 15 mg, IntraVENous, q6h PRN, Juliana Tavares MD, 15 mg at 08/03/22 0616 lamoTRIgine (LaMICtal) tablet 100 mg, 100 mg, Oral, Daily, Antwon Orellanau, DO, 100 mg at 08/03/22 0912 lamoTRIgine (LaMICtal) tablet 250 mg, 250 mg, Oral, Nightly, Antwon Orellanau, DO, 250 mg at 08/02/22 2123 LORazepam (Ativan) tablet 1 mg, 1 mg, Oral, q12h PRN, Antwon Orellanau, DO, 1 mg at 08/03/22 1153 ondansetron ODT (Zofran-ODT) disintegrating tablet 4 mg, 4 mg, Oral, q8h PRN OR ondansetron (Zofran) injection 4 mg, 4 mg, IntraVENous, q6h PRN, Antwon Nascimento, DO, 4 mg at 07/31/22 1628 OXcarbazepine (Trileptal) tablet 150 mg, 150 mg, Oral, Daily, Antwon Orellanau, DO, 150 mg at 08/02/22 2124 polyethylene glycol (PEG) 3350 (Miralax) packet 17 g, 17 g, Oral, Daily PRN, Antwon Orellanau, DO sennosides (Senokot) tablet 17.2 mg, 2 tablet, Oral, BID, Tanner Wang MD, 17.2 mg at 08/03/22 1153 sodium chloride 0.9 % infusion, 5-250 mL/hr, IntraVENous, PRN, Antwon Orellanau, DO sodium chloride 0.9% (NS) flush 10 mL, 10 mL, IntraCATHeter, q12h, Juliana Tavares MD, 10 mL at 08/03/22 0910 sodium chloride 0.9% (NS) flush 10 mL, 10 mL, IntraCATHeter, PRN, Juliana Tavares MD sodium chloride 0.9% (NS) flush 5-40 mL, 5-40 mL, IntraVENous, q12h, Antwon Nascimento DO, 10 mL at 08/03/22 0610 sodium chloride 0.9% (NS) flush 5-40 mL, 5-40 mL, IntraVENous, PRN, Vinuth Koduru, DO zonisamide (Zonegran) capsule 200 mg, 200 mg, Oral, Daily, Vinuth Koduru, DO, 200 mg at 08/03/22 0912 zonisamide (Zonegran) capsule 300 mg, 300 mg, Oral, Nightly, Vinuth Koduru, DO, 300 mg at 08/02/22 2124 Objective Physical Exam Physical Exam [facility] LIJTDC Non focal neuro +weakness Relevant Results Vital signs in last 24 hours: Temp: [36.7 ?C (98 ?F)-36.8 ?C (98.2 ?F)] 36.7 ?C (98 ?F) Heart Rate: [77-86] 77 Resp: [16] 16 BP: (103-106)/(73-77) 103/77 Intake/Output this shift: No intake/output data recorded. Intake/Output last 3 shifts: No intake/output data recorded. Labs: Results from last 7 days Lab Units 08/03/22 0618 WBC AUTO 10*3/uL 7.6 RBC AUTO 10*6/uL 4.37 HEMOGLOBIN g/dL 12.4 HEMATOCRIT % 37.4 Results from last 7 days Lab Units 08/03/22 0618 08/01/22 0359 07/31/22 0641 SODIUM mmol/L 141 < > 139 POTASSIUM mmol/L 3.6 < > 3.3* CHLORIDE mmol/L 110* < > 109* CO2 mmol/L 21* < > 22 BUN mg/dL 9 < > 8 CREATININE mg/dL 0.68 < > 0.67 CALCIUM mg/dL 8.8 < > 8.6 MAGNESIUM mg/dL -- -- 1.7 BILIRUBIN TOTAL mg/dL 0.3 < > 0.7 ALT U/L 11 < > 8 AST U/L 22 < > 17 < > = values in this interval not displayed. No lab exists for component: FATCASTU Principal Problem: Myasthenic crisis (HCC) - pheresis #4 and #5 and Wednesday respectively - get TDC removed on Wednesday prior to discharge Preti MD Sakshi 08/03/2022 4:43 PM Normal [facility] Progress Note #3 TPE treatment completed as ordered Flowsheet in bedside chart Normal [facility] CBC W Auto Differential pane l (Bld)on 08-02-2022 Basophils (Bld) [#/Vol] 0.0 10*3/uL 0.0 - 0.2 10*3/uL [facility] Basophils/100 WBC (Bld) 0.5 % 0.0 - 2.0 % [facility] Eosinophils (Bld) [#/Vol] 0.3 10*3/uL 0.0 - 0.5 10*3/uL [facility] Eosinophils/100 WBC (Bld) 3.8 % 1.0 - 6.0 % [facility] Erythrocyte distribution width (RBC) [Ratio] 14.0 % 11.5 - 14.5 % [facility] Hematocrit (Bld) [Volume fraction] 36.3 % 35.0 - 47.0 % [facility] Hemoglobin (Bld) [Mass/Vol] 12.0 g/dL 11.7 - 16.0 g/dL [facility] Interpretation and review of laboratory results Normal [facility] Lymphocytes (Bld) [#/Vol] 1.7 10*3/uL 1.0 - 4.3 10*3/uL [facility] Lymphocytes/100 WBC (Bld) 22.3 % 20.0 - 40.0 % [facility] MCH (RBC) [Entitic mass] 28.1 pg 26.0 - 34.0 pg [facility] MCHC (RBC) [Mass/Vol] 33.0 % 32.0 - 36.0 % [facility] MCV (RBC) [Entitic vol] 85.2 fL 80.0 - 98.0 fL [facility] Monocytes (Bld) [#/Vol] 0.5 10*3/uL 0.0 - 0.8 10*3/uL [facility] Monocytes/100 WBC (Bld) 7.0 % 2.0 - 10.0 % [facility] Neutrophils (Bld) [#/Vol] 5.0 10*3/uL 1.8 - 7.0 10*3/uL [facility] Neutrophils/100 WBC (Bld) 66.4 % 40.0 - 80.0 % [facility] Nucleated RBC/100 WBC (Bld) [Ratio] 0.0 % [facility] Platelet mean volume (Bld) [Entitic vol] 7.7 fL 7.4 - 12.4 fL [facility] Platelets (Bld) [#/Vol] 192 10*3/uL 140 - 440 10*3/uL [facility] RBC (Bld) [#/Vol] 4.26 10*6/uL 3.8 - 5.20 10*6/uL [facility] WBC (Bld) [#/Vol] 7.5 10*3/uL 3.6 - 10.7 10*3/uL [facility] Comprehensive metabolic 1998 panelon 08-02-2022 Albumin [Mass/Vol] 4.0 g/dL 3.5 - 5.0 g/dL [facility] ALP [Catalytic activity/Vol] 32 U/L Low 38 - 126 U/L [facility] ALT [Catalytic activity/Vol] 7 U/L 0 - 34 U/L [facility] Anion gap [Moles/Vol] 7 mmol/L 3 - 13 mmol/L [facility] AST [Catalytic activity/Vol] 19 U/L 15 - 46 U/L [facility] Bilirubin [Mass/Vol] 0.4 mg/dL 0.2 - 1 .3 mg/dL [facility] Calcium [Mass/Vol] 8.8 mg/dL 8.4 - 10. 4 mg/dL [facility] Chloride [Moles/Vol] 111 mmol/L High 98 - 10 7 mmol/L [facility] CO2 [Moles/Vol] 22 mmol/L 22 - 30 mmol/L [facility] Creatinine [Mass/Vol] 0.66 mg/dL 0.52 - 1.04 mg/dL [facility] GFR/1.73 sq M.predicted MDRD (S/P/Bld) [Vol rate/Area] - PINF [facility] Comment on above: Calculation based on the Chronic Kidney Disease Epidemiology Collaboration (CKD-EPI) equation refit without adjustment for race Glucose [Mass/Vol] 87 mg/dL 70 - 100 mg/dL [facility] Interpretation and review of laboratory results Abnormal [facility] Potassium [Moles/Vol] 3.6 mmol/L 3.5 - 5.1 mmol/L [facility] Protein [Mass/Vol] 5.6 g/dL Low 6.3 - 8.2 g/dL [facility] Sodium [Moles/Vol] 141 mmol/L 135 - 145 mmol/L [facility] Urea nitrogen [Mass/Vol] 9 mg/dL 7 - 17 mg/dL [facility] ESR (Bld) [Velocity]Ordered By: Neetu Guillaume on 08-02-2022 Interpretation and review of laboratory results Normal [facility] Sed Rate [facility] Laboratory - Chemistry and C hemistry - challengeon 08-02-2022 Glucose [Mass/Vol] 98 mg/dL 70 - 100 mg/dL [facility] No Panel Informationon 08-02 Interpretation and review of laboratory results Normal [facility] Performed by: [facility], [address] [place] [address] CLIA ID: [id number] [facility] Progress Noteon 08-02-2022 Progress Note Neurology update: MRI of the brain, thoracic and cervical spine are within normal limits. Neurology service is signing off. Please recall us if/as needed. The patient may be started on rehab after the completion of plasmapheresis treatment. Further recommendations, per primary and the other care providing teams. Outpatient neurology follow-up, 3 to 4 weeks post discharge. For further details recommendations, please review earlier neurology consultation note. Thank you. Normal [facility] Progress Note ---- -------- Attestation with edits by Adelfo Kennedy MD at 08/02/2022 12:14 PM Attending Physician Statement I have discussed the care of Doug Flanagan, including pertinent history and exam findings, with the resident. I have seen and examined the patient and the brennan elements of all parts of the encounter have been performed by me. I agree with the resident note with my corrections and additions (in blue). (GC Modifier) -------- Med Team Progress Note Doug Flanagan : 1990(31 y.o.) Date: August 02, 2022 Med Team: [place] Attending: Dr. Kennedy Chief Complaint: Impending myasthenic crisis Subjective: - No acute events overnight. - This morning, the patient feels much better than before. She felt improvement soon after her 2nd plasmapheresis treatment. Her headache has resolved and her lightheadedness has significantly improved. She feels like she has more strength than before. - In terms of her breathing, she also has noticed improvement. She still feels some resistance to deep inspiration but not as much as before. - She denies any recent seizure-like activity. - She does feel constipated. She had a BM 2 days ago but not yesterday. She requests Colace for her constipation. - Agreeable to discontinuing mIVF. Intends to increase PO intake. - Continues to experience pain at L chest catheter site. Improves with ketorolac. Agree with resident history, independently interviewed, in addition:seen with team on bedside rounds. Review of Systems Constitutional: Positive for chills and diaphoresis. Negative for fatigue and fever. Eyes: Negative for visual disturbance. Respiratory: Positive for chest tightness (resistance to deep inspiration). Negative for cough and shortness of breath. Cardiovascular: Negative for chest pain, palpitations and leg swelling. Gastrointestinal: Positive for constipation. Negative for abdominal pain, diarrhea, nausea and vomiting. Genitourinary: Negative for difficulty urinating and dysuria. Skin: Pain around left chest tunneled cath Neurological: Negative for dizziness, weakness, light-headedness and numbness. Agree with resident ROS, independently interviewed. Scheduled Meds:apixaban, 5 mg, Oral, BID escitalopram, 10 mg, Oral, Daily heparin flush, 100 Units, IntraCATHeter, q12h lamoTRIgine, 100 mg, Oral, Daily lamoTRIgine, 250 mg, Oral, Nightly OXcarbazepine, 150 mg, Oral, Daily sodium chloride 0.9%, 10 mL, IntraCATHeter, q12h sodium chloride 0.9%, 5-40 mL, IntraVENous, q12h zonisamide, 200 mg, Oral, Daily zonisamide, 300 mg, Oral, Nightly Continuous Infusions:citrate dextrose, 100-200 mL/hr, Last Rate: 1,000 mL (08/01/22 1146) lactated Ringer's, 100 mL/hr, Last Rate: 100 mL/hr (08/01/22 1501) PRNs: ketorolac 15 mg x 2, lorazepam 1 mg PO x 1 Objective: BP 111/69 (BP Location: Right arm, Patient Position: Lying) Pulse 76 Temp 36.9 ?C (98.4 ?F) (Temporal) Resp 16 Ht 5' 2 (1.575 m) Wt 170 lb (77.1 kg) LMP 07/30/2022 SpO2 97% BMI 31.09 kg/m? Physical Exam Constitutional: General: She is not in acute distress. Appearance: Normal appearance. She is not ill-appearing. Eyes: Extraocular Movements: Extraocular movements intact. Conjunctiva/sclera: Conjunctivae normal. Pupils: Pupils are equal, round, and reactive to light. Cardiovascular: Rate and Rhythm: Normal rate and regular rhythm. Heart sounds: Normal heart sounds. Pulmonary: Effort: Pulmonary effort is normal. No respiratory distress. Breath sounds: Normal breath sounds. Comments: No respiratory distress noted. Able to deeply inspire and exhale. Abdominal: General: Bowel sounds are normal. There is no distension. Palpations: Abdomen is soft. Tenderness: There is no abdominal tenderness. Musculoskeletal: Right lower leg: No edema. Left lower leg: No edema. Skin: General: Skin is warm and dry. Comments: Tunneled cath placed on left chest, does have TTP, no surrounding erythema or edema. Mediport placed on right chest, no surrounding erythema or edema. Neurological: Mental Status: She is alert and oriented to person, place, and time. Cranial Nerves: No cranial nerve deficit. Sensory: No sensory deficit. Comments: Mild weakness with leg raise bilaterally, L > R. Intact strength with handgrip. Psychiatric: Mood and Affect: Mood normal. Behavior: Behavior normal. Agree with resident physical, independently examined. [facility] within last 24 hours Auto WBC Date Value Ref Range Status 08/02/2022 7.5 3.6 - 10.7 10*3/uL Final Hemoglobin Date Value Ref Range Status 08/02/2022 12.0 11.7 - 16.0 g/dL Final Hematocrit Date Value Ref Range Status 08/02/2022 36.3 35.0 - 47.0 % Final Platelets Date Value Ref (more content not included)... Normal [facility] CBC W Auto Differential pane l (Bld)on 08-01-2022 Basophils (Bld) [#/Vol] 0.0 10*3/uL 0.0 - 0.2 10*3/uL [facility] Basophils/100 WBC (Bld) 0.6 % 0.0 - 2.0 % [facility] Eosinophils (Bld) [#/Vol] 0.2 10*3/uL 0.0 - 0.5 10*3/uL [facility] Eosinophils/100 WBC (Bld) 2.6 % 1.0 - 6.0 % [facility] Erythrocyte distribution width (RBC) [Ratio] 14.1 % 11.5 - 14.5 % [facility] Hematocrit (Bld) [Volume fraction] 35.2 % 35.0 - 47.0 % [facility] Hemoglobin (Bld) [Mass/Vol] 11.7 g/dL 11.7 - 16.0 g/dL [facility] Interpretation and review of laboratory results Normal [facility] Lymphocytes (Bld) [#/Vol] 1.8 10*3/uL 1.0 - 4.3 10*3/uL [facility] Lymphocytes/100 WBC (Bld) 28.1 % 20.0 - 40.0 % [facility] MCH (RBC) [Entitic mass] 28.2 pg 26.0 - 34.0 pg [facility] MCHC (RBC) [Mass/Vol] 33.3 % 32.0 - 36.0 % [facility] MCV (RBC) [Entitic vol] 84.9 fL 80.0 - 98.0 fL [facility] Monocytes (Bld) [#/Vol] 0.5 10*3/uL 0.0 - 0.8 10*3/uL [facility] Monocytes/100 WBC (Bld) 7.2 % 2.0 - 10.0 % [facility] Neutrophils (Bld) [#/Vol] 4.0 10*3/uL 1.8 - 7.0 10*3/uL [facility] Neutrophils/100 WBC (Bld) 61.5 % 40.0 - 80.0 % [facility] Nucleated RBC/100 WBC (Bld) [Ratio] 0.1 % [facility] Platelet mean volume (Bld) [Entitic vol] 7.8 fL 7.4 - 12.4 fL [facility] Platelets (Bld) [#/Vol] 192 10*3/uL 140 - 440 10*3/uL [facility] RBC (Bld) [#/Vol] 4.15 10*6/uL 3.8 - 5.20 10*6/uL [facility] WBC (Bld) [#/Vol] 6.4 10*3/uL 3.6 - 10.7 10*3/uL [facility] Comprehensive metabolic 1998 panelon 08-01-2022 Albumin [Mass/Vol] 3.8 g/dL 3.5 - 5.0 g/dL [facility] ALP [Catalytic activity/Vol] 44 U/L 38 - 126 U/L [facility] ALT [Catalytic activity/Vol] 8 U/L 0 - 34 U/L [facility] Anion gap [Moles/Vol] 8 mmol/L 3 - 13 mmol/L [facility] AST [Catalytic activity/Vol] 16 U/L 15 - 46 U/L [facility] Bilirubin [Mass/Vol] 0.2 mg/dL 0.2 - 1 .3 mg/dL [facility] Calcium [Mass/Vol] 8.4 mg/dL 8.4 - 10. 4 mg/dL [facility] Chloride [Moles/Vol] 112 mmol/L High 98 - 10 7 mmol/L [facility] CO2 [Moles/Vol] 21 mmol/L Low 22 - 30 mmol/L [facility] Creatinine [Mass/Vol] 0.69 mg/dL 0.52 - 1.04 mg/dL [facility] GFR/1.73 sq M.predicted MDRD (S/P/Bld) [Vol rate/Area] - PINF [facility] Comment on above: Calculation based on the Chronic Kidney Disease Epidemiology Collaboration (CKD-EPI) equation refit without adjustment for race Glucose [Mass/Vol] 92 mg/dL 70 - 100 mg/dL [facility] Interpretation and review of laboratory results Abnormal [facility] Potassium [Moles/Vol] 3.7 mmol/L 3.5 - 5.1 mmol/L [facility] Protein [Mass/Vol] 5.8 g/dL Low 6.3 - 8.2 g/dL [facility] Sodium [Moles/Vol] 140 mmol/L 135 - 145 mmol/L [facility] Urea nitrogen [Mass/Vol] 8 mg/dL 7 - 17 mg/dL [facility] MR Brain WO and W contrast I Von 08-01-2022 Normal MRI of the brain with and without contrast. Report Dictated on Electronically Signed By: Khurram Segura Electronically Signed Date/Time: 08/01/2022 11:02 AM EDT [facility] [employer] Patient Name: DOUG FLANAGAN : 1990 Exam Date/Time: 08/01/2022 10:36 Procedure: MR BRAIN W AND WO CONTRAST Ordering Provider: ZHAO CHRISTOPHER Reason For Exam: Concern for transverse myelitis vs MS MRI BRAIN WITHOUT AND WITH CONTRAST INDICATIONS: Concern for transverse myelitis vs MS COMPARISON: None TECHNIQUE: Multiplanar, multisequence MRI of the brain was performed without and with intravenous gadolinium contrast. FINDINGS: Acute findings: No recent infarct, intracranial hemorrhage, or extra-axial fluid collection. Mass: None. No abnormal brain parenchymal or leptomeningeal enhancement. Parenchyma/White Matter: Normal morphology and signal intensity. Ventricles and sulci: Normal caliber of the ventricles and sulci. Skull base: Normal size and morphology of the pituitary gland. No suprasellar mass. Normal position of the cerebellar tonsils. Vessels: The major intracranial flow voids are preserved. Extracranial structures: Normal orbits. No extracranial soft tissue abnormalities. Sinuses/mastoids: Clear Bones: No pathologic marrow infiltration. [facility] Khurram Segura M D - 08/01/2022 Patient Name: DOUG FLANAGAN : 1990 Exam Date/Time: 08/01/2022 10:36 Procedure: MR BRAIN W AND WO CONTRAST Ordering Provider: ZHAO CHRISTOPHER Reason For Exam: Concern for transverse myelitis vs MS MRI BRAIN WITHOUT AND WITH CONTRAST INDICATIONS: Concern for transverse myelitis vs MS COMPARISON: None TECHNIQUE: Multiplanar, multisequence MRI of the brain was performed without and with intravenous gadolinium contrast. FINDINGS: Acute findings: No recent infarct, intracranial hemorrhage, or extra-axial fluid collection. Mass: None. No abnormal brain parenchymal or leptomeningeal enhancement. Parenchyma/White Matter: Normal morphology and signal intensity. Ventricles and sulci: Normal caliber of the ventricles and sulci. Skull base: Normal size and morphology of the pituitary gland. No suprasellar mass. Normal position of the cerebellar tonsils. Vessels: The major intracranial flow voids are preserved. Extracranial structures: Normal orbits. No extracranial soft tissue abnormalities. Sinuses/mastoids: Clear Bones: No pathologic marrow infiltration. IMPRESSION: Normal MRI of the brain with and without contrast. Report Dictated on Electronically Signed By: Khurram Segura Electronically Signed Date/Time: 08/01/2022 11:02 AM EDT [facility] Radiology Study observation (narrative) [facility] MR Cervical spine WO and W c ontrast Jada 08-01-2022 Patient Name: DOUG FLANAGAN : 1990 Exam Date/Time: 08/01/2022 10:36 Procedure: MR CERVICAL SPINE W AND WO CONTRAST Ordering Provider: ZHAO CHRISTOPHER Reason For Exam: Concern for transverse myelitis vs MS EXAM: MR CERVICAL SPINE W AND WO CONTRAST, MR THORACIC SPINE W AND WO CONTRAST CLINICAL HISTORY: Concern for transverse myelitis vs MS. Generalized weakness all extremities and trouble breathing. History of myasthenia gravis. TECHNIQUE: 1. Multiplanar, multisequence MRI of the cervical spine with and without contrast. 2. Multiplanar, multisequence MRI of the thoracic spine with and without contrast COMPARISON: None FINDINGS: CERVICAL SPINE: Craniocervical junction: Within normal limits. Soft tissues: No prevertebral or paraspinal edema. Alignment: Within normal limits. Cord: Normal morphology and signal intensity. Vertebrae: Normal vertebral marrow signal intensity. No compression deformities or osseous lesions. Canal and foramina: C2-C3: Patent. C3-C4: Patent. C4-C5: Patent. C5-C6: Patent. C6-C7: Patent. C7-T1: Patent. Other: 9 mm osseous lesion in the left parasymphyseal left hemimandible most likely representing a dental lesion. Left IJ central line is in place. THORACIC SPINE: Counting reference: Craniocervical junction Alignment: Normal Spinal cord: Normal morphology and signal intensity Soft tissues: Unremarkable Vertebrae: Normal marrow signal intensity. No fractures. No osseous lesions. Canal and foramina: No stenosis. [facility] Khurram Segura M D - 08/01/2022 Patient Name: DOUG FLANAGAN : 1990 Exam Date/Time: 08/01/2022 10:36 Procedure: MR CERVICAL SPINE W AND WO CONTRAST Ordering Provider: ZHAO CHRISTOPHER Reason For Exam: Concern for transverse myelitis vs MS EXAM: MR CERVICAL SPINE W AND WO CONTRAST, MR THORACIC SPINE W AND WO CONTRAST CLINICAL HISTORY: Concern for transverse myelitis vs MS. Generalized weakness all extremities and trouble breathing. History of myasthenia gravis. TECHNIQUE: 1. Multiplanar, multisequence MRI of the cervical spine with and without contrast. 2. Multiplanar, multisequence MRI of the thoracic spine with and without contrast COMPARISON: None FINDINGS: CERVICAL SPINE: Craniocervical junction: Within normal limits. Soft tissues: No prevertebral or paraspinal edema. Alignment: Within normal limits. Cord: Normal morphology and signal intensity. Vertebrae: Normal vertebral marrow signal intensity. No compression deformities or osseous lesions. Canal and foramina: C2-C3: Patent. C3-C4: Patent. C4-C5: Patent. C5-C6: Patent. C6-C7: Patent. C7-T1: Patent. Other: 9 mm osseous lesion in the left parasymphyseal left hemimandible most likely representing a dental lesion. Left IJ central line is in place. THORACIC SPINE: Counting reference: Craniocervical junction Alignment: Normal Spinal cord: Normal morphology and signal intensity Soft tissues: Unremarkable Vertebrae: Normal marrow signal intensity. No fractures. No osseous lesions. Canal and foramina: No stenosis. IMPRESSION: 1. Normal appearance of the cervical and thoracic spinal cord. Negative study. 2. Incidental 9 mm osseous lesion in the parasymphysis of the left hemimandible which is most likely a odontogenic inflammatory lesion but otherwise not characterized on this exam. Report Dictated on Electronically Signed By: Khurram Segura Electronically Signed Date/Time: 08/01/2022 11:08 AM EDT [facility] Radiology Study observation (narrative) [facility] MR Thoracic spine WO and W c ontrast Jada 08-01-2022 Patient Name: DOUG FLANAGAN : 1990 Exam Date/Time: 08/01/2022 10:39 Procedure: MR THORACIC SPINE W AND WO CONTRAST Ordering Provider: PAINTER HASAN Reason For Exam: Ataxia, nontraumatic, thoracic pathology suspected EXAM: MR CERVICAL SPINE W AND WO CONTRAST, MR THORACIC SPINE W AND WO CONTRAST CLINICAL HISTORY: Concern for transverse myelitis vs MS. Generalized weakness all extremities and trouble breathing. History of myasthenia gravis. TECHNIQUE: 1. Multiplanar, multisequence MRI of the cervical spine with and without contrast. 2. Multiplanar, multisequence MRI of the thoracic spine with and without contrast COMPARISON: None FINDINGS: CERVICAL SPINE: Craniocervical junction: Within normal limits. Soft tissues: No prevertebral or paraspinal edema. Alignment: Within normal limits. Cord: Normal morphology and signal intensity. Vertebrae: Normal vertebral marrow signal intensity. No compression deformities or osseous lesions. Canal and foramina: C2-C3: Patent. C3-C4: Patent. C4-C5: Patent. C5-C6: Patent. C6-C7: Patent. C7-T1: Patent. Other: 9 mm osseous lesion in the left parasymphyseal left hemimandible most likely representing a dental lesion. Left IJ central line is in place. THORACIC SPINE: Counting reference: Craniocervical junction Alignment: Normal Spinal cord: Normal morphology and signal intensity Soft tissues: Unremarkable Vertebrae: Normal marrow signal intensity. No fractures. No osseous lesions. Canal and foramina: No stenosis. [facility] RADIOLOGY SYSTEM Khurram Segura M D - 08/01/2022 [facility] Name: [facility]GAN [facility] 1990 [id number] Exam Date/Time: 08/01/2022 10:39 Procedure: MR THORACIC SPINE W AND WO CONTRAST Ordering Provider: PAINTER HASAN Reason For Exam: Ataxia, nontraumatic, thoracic pathology suspected EXAM: MR CERVICAL SPINE W AND WO CONTRAST, MR THORACIC SPINE W AND WO CONTRAST CLINICAL HISTORY: Concern for transverse myelitis vs MS. Generalized weakness all extremities and trouble breathing. History of myasthenia gravis. TECHNIQUE: 1. Multiplanar, multisequence MRI of the cervical spine with and without contrast. 2. Multiplanar, multisequence MRI of the thoracic spine with and without contrast COMPARISON: None FINDINGS: CERVICAL SPINE: Craniocervical junction: Within normal limits. Soft tissues: No prevertebral or paraspinal edema. Alignment: Within normal limits. Cord: Normal morphology and signal intensity. Vertebrae: Normal vertebral marrow signal intensity. No compression deformities or osseous lesions. Canal and foramina: C2-C3: Patent. C3-C4: Patent. C4-C5: Patent. C5-C6: Patent. C6-C7: Patent. C7-T1: Patent. Other: 9 mm osseous lesion in the left parasymphyseal left hemimandible most likely representing a dental lesion. Left IJ central line is in place. THORACIC SPINE: Counting reference: Craniocervical junction Alignment: Normal Spinal cord: Normal morphology and signal intensity Soft tissues: Unremarkable Vertebrae: Normal marrow signal intensity. No fractures. No osseous lesions. Canal and foramina: No stenosis. IMPRESSION: 1. Normal appearance of the cervical and thoracic spinal cord. Negative study. 2. Incidental 9 mm osseous lesion in the parasymphysis of the left hemimandible which is most likely a odontogenic inflammatory lesion but otherwise not characterized on this exam. Report Dictated on Electronically Signed By: Khurram Segura Electronically Signed Date/Time: 08/01/2022 11:08 AM EDT [facility] Radiology Study observation (narrative) [facility] No Panel Informationon 08-01 1. Normal appearance of the cervical and thoracic spinal cord. Negative study. 2. Incidental 9 mm osseous lesion in the parasymphysis of the left hemimandible which is most likely a odontogenic inflammatory lesion but otherwise not characterized on this exam. Report Dictated on Electronically Signed By: Khurram Segura Electronically Signed Date/Time: 08/01/2022 11:08 AM [facility] RADIOLOGY SYSTEM [facility] Progress Noteon 08-01-2022 Progress Note Second pheresis treatment completed. Tolerated well. Post bp 102/64. See bedside chart for vitals. Normal [facility] Progress Note Pt. NIF: -40 Normal [facility] Progress Note Nutrition rescreen completed. Chart reviewed. Patient to be monitored and followed by the diet building maintenance technician. Normal [facility] Progress Note ---- -------- Attestation with edits by Adelfo Kennedy MD at 08/01/2022 2:45 PM Attending Physician Statement I have discussed the care of Doug Flanagan, including pertinent history and exam findings, with the resident. I have seen and examined the patient and the brennan elements of all parts of the encounter have been performed by me. I agree with the resident note with my corrections and additions (in blue). (GC Modifier) -------- Med Team Progress Note Doug Flanagan : 1990(31 y.o.) Date: August 01, 2022 Med Team: [place] Attending: Dr. Kennedy Chief Complaint: Impending myasthenic crisis Subjective: - No acute events overnight. - This morning, the patient feels more lightheaded than yesterday. She continues to have a headache, though this time it is more so on the R side than the left. - She has some difficulty breathing secondary to chest tightness: feels like she experiences resistance on inspiration. - Endorses nausea. No vomiting today. - No martinez seizure-like activity, but has been experiencing some twitching. She has home lorazepam PRN -for anxiety on order in addition to scheduled AEDs. - Patient felt like she got a second wind after first plasmapheresis. - Also endorses cough, chills, fatigue. - Scheduled for 2nd of 5 plasmapheresis treatments today. Also will get MRI. Agree with resident history, independently interviewed, in addition: initially spoke with mother while Ms. Camacho was getting her MRI and then later met with patient during bedside rounds. Bother express frustration over insurance issue/inability to get the treatments outpatient. Ms. Camacho does say that this crisis is worse than previous one, in that it really affected her ability to walk and has trouble keeping neck up (which was not the case previous episode). She is having some catching of her breath, but not short of breath. Excited tocontinue treatment and eventually get back home to her son. She is hungry and food is on the way. Review of Systems Constitutional: Positive for chills and fatigue. Negative for fever. Eyes: Positive for visual disturbance (blurry vision). Respiratory: Positive for chest tightness. Negative for cough and shortness of breath. Cardiovascular: Negative for chest pain, palpitations and leg swelling. Gastrointestinal: Positive for abdominal pain and nausea. Negative for constipation, diarrhea and vomiting. Genitourinary: Negative for difficulty urinating. Skin: Pain around left chest tunneled cath Neurological: Positive for light-headedness (R side). Negative for dizziness, weakness and numbness. Agree with resident ROS, independently interviewed. Scheduled Meds:apixaban, 5 mg, Oral, BID escitalopram, 10 mg, Oral, Daily heparin flush, 100 Units, IntraCATHeter, q12h lamoTRIgine, 100 mg, Oral, Daily lamoTRIgine, 250 mg, Oral, Nightly OXcarbazepine, 150 mg, Oral, Daily sodium chloride 0.9%, 10 mL, IntraCATHeter, q12h sodium chloride 0.9%, 5-40 mL, IntraVENous, q12h zonisamide, 200 mg, Oral, Daily zonisamide, 300 mg, Oral, Nightly Continuous Infusions:lactated Ringer's, 100 mL/hr, Last Rate: 100 mL/hr (08/01/22 0400) PRNs: ketorolac 15 mg x 3, Zofran x 1 Objective: BP 114/72 (BP Location: Right arm, Patient Position: Lying) Pulse 74 Temp 36.4 ?C (97.6 ?F) (Temporal) Resp 16 Ht 5' 2 (1.575 m) Wt 170 lb (77.1 kg) LMP 07/30/2022 SpO2 97% BMI 31.09 kg/m? Physical Exam Constitutional: General: She is not in acute distress. Appearance: Normal appearance. She is not ill-appearing. Eyes: Extraocular Movements: Extraocular movements intact. Conjunctiva/sclera: Conjunctivae normal. Pupils: Pupils are equal, round, and reactive to light. Cardiovascular: Rate and Rhythm: Normal rate and regular rhythm. Heart sounds: Normal heart sounds. Pulmonary: Effort: Pulmonary effort is normal. No respiratory distress. Breath sounds: Normal breath sounds. Abdominal: General: Bowel sounds are normal. There is no distension. Palpations: Abdomen is soft. Tenderness: There is no abdominal tenderness. Musculoskeletal: Right lower leg: No edema. Left lower leg: No edema. Skin: General: Skin is warm and dry. Comments: Tunneled cath placed on left chest, does have TTP, no surrounding erythema or edema. Mediport placed on right chest, no surrounding erythema or edema. Neurological: Mental Status: She is alert and oriented to person, place, and time. Cranial Nerves: No cranial nerve deficit. Sensory: No sensory deficit. Comments: Mild weakness with leg raise bilaterally. Intact strength with handgrip. Psychiatric: Mood and Affect: Mood normal. Behavior: Behavior normal. Agree with resident physical, independen (more content not included)... Normal [facility] CBC W Auto Differential pane l (Bld)Ordered By: Rickey Edward on 07-31-2022 Basophils (Bld) [#/Vol] 0.0 10*3/uL 0.0 - 0.2 10*3/uL [facility] Basophils/100 WBC (Bld) 0.4 % 0.0 - 2.0 % [facility] Eosinophils (Bld) [#/Vol] 0.1 10*3/uL 0.0 - 0.5 10*3/uL [facility] Eosinophils/100 WBC (Bld) 1.0 % 1.0 - 6.0 % [facility] Erythrocyte distribution width (RBC) [Ratio] 13.9 % 11.5 - 14.5 % [facility] Hematocrit (Bld) [Volume fraction] 38.9 % 35.0 - 47.0 % [facility] Hemoglobin (Bld) [Mass/Vol] 13.0 g/dL 11.7 - 16.0 g/dL [facility] Interpretation and review of laboratory results Abnormal [facility] Lymphocytes (Bld) [#/Vol] 1.4 10*3/uL 1.0 - 4.3 10*3/uL [facility] Lymphocytes/100 WBC (Bld) 13.9 % Low 20.0 - 40.0 % [facility] MCH (RBC) [Entitic mass] 28.2 pg 26.0 - 34.0 pg [facility] MCHC (RBC) [Mass/Vol] 33.4 % 32.0 - 36.0 % [facility] MCV (RBC) [Entitic vol] 84.5 fL 80.0 - 98.0 fL [facility] Monocytes (Bld) [#/Vol] 0.7 10*3/uL 0.0 - 0.8 10*3/uL [facility] Monocytes/100 WBC (Bld) 7.4 % 2.0 - 10.0 % [facility] Neutrophils (Bld) [#/Vol] 7.8 10*3/uL High 1.8 - 7.0 10*3/uL [facility] Neutrophils/100 WBC (Bld) 77.3 % 40.0 - 80.0 % [facility] Nucleated RBC/100 WBC (Bld) [Ratio] 0.0 % [facility] Platelet mean volume (Bld) [Entitic vol] 7.6 fL 7.4 - 12.4 fL [facility] Platelets (Bld) [#/Vol] 202 10*3/uL 140 - 440 10*3/uL [facility] RBC (Bld) [#/Vol] 4.60 10*6/uL 3.8 - 5.20 10*6/uL [facility] WBC (Bld) [#/Vol] 10.0 10*3/uL 3.6 - 10.7 10*3/uL [facility] Comprehensive metabolic 1998 panelon 07-31-2022 Albumin [Mass/Vol] 4.1 g/dL 3.5 - 5.0 g/dL [facility] ALP [Catalytic activity/Vol] 43 U/L 38 - 126 U/L [facility] ALT [Catalytic activity/Vol] 8 U/L 0 - 34 U/L [facility] Anion gap [Moles/Vol] 8 mmol/L 3 - 13 mmol/L [facility] AST [Catalytic activity/Vol] 17 U/L 15 - 46 U/L [facility] Bilirubin [Mass/Vol] 0.7 mg/dL 0.2 - 1 .3 mg/dL [facility] Calcium [Mass/Vol] 8.6 mg/dL 8.4 - 10. 4 mg/dL [facility] Chloride [Moles/Vol] 109 mmol/L High 98 - 10 7 mmol/L [facility] CO2 [Moles/Vol] 22 mmol/L 22 - 30 mmol/L [facility] Creatinine [Mass/Vol] 0.67 mg/dL 0.52 - 1.04 mg/dL [facility] GFR/1.73 sq M.predicted MDRD (S/P/Bld) [Vol rate/Area] - PINF [facility] Comment on above: Calculation based on the Chronic Kidney Disease Epidemiology Collaboration (CKD-EPI) equation refit without adjustment for race Glucose [Mass/Vol] 94 mg/dL 70 - 100 mg/dL [facility] Interpretation and review of laboratory results Abnormal [facility] Potassium [Moles/Vol] 3.3 mmol/L Low 3.5 - 5.1 mmol/L [facility] Protein [Mass/Vol] 5.9 g/dL Low 6.3 - 8.2 g/dL [facility] Sodium [Moles/Vol] 139 mmol/L 135 - 145 mmol/L [facility] Urea nitrogen [Mass/Vol] 8 mg/dL 7 - 17 mg/dL [facility] Consulton 07-31-2022 Consult Renal Consult 31 yo WF Myasthenia gravis Requires pheresis and we were trying to get done as outpatient but too anxious to do so so admitted Had first pheresis yesterday PMH: as above, epilepsy, anxiety ALL/MEDS: reviewed FMH: NC ROS: weakness, anxiety, BOURNE PE: 112/59 101 17 36.3 NAD RRR Lungs clear Abd NT LIJTDC No edema Weakness Labs reviewed A/P: Myasthenia gravis exacerbation- five pheresis, 1 plasma volume, albumin replacement, do treatments every other day Hypokalemia- replace Normal [facility] Consult ---- -------- Attestation signed by Lupe Painter MD at 08/01/2022 9:36 AM Attestation Note: I have personally performed a face to face diagnostic evaluation on this patient. Labs, maging studies and electronic medical record have been reviewed by me. This note documented by the resident physician reflects my history, exam and medical decision making as discussed with the resident physician. I have reviewed and agree with the care plan. Changes were made in the orders as necessary My history, exam, assessment and plan are as follows. Comments by the neurology attending: The patient has a longstanding history of myasthenia gravis which was well controlled on Ultomiris treatment. Apparently, for reasons unclear to me, the patient's insurance declined the approval of patient's medically necessary treatment with Ultomiris that, more likely than not, resulted in patient's current episode of shortness of breath, generalized body weakness and, some visual difficulties. The patient has been experiencing difficulty in ambulation due to her severe generalized weakness. The patient is otherwise alert and oriented x4 with normal speech and, she can follow 1-3 step commands. The patient has brisk deep tendon reflexes throughout with bilateral ankle clonus. For detailed H&P, please review with the physician's note. Clinical impression: Myasthenia gravis exacerbation, probably due to inability to take the Ultomiris which was reportedly, denied by patient's insurance. Recommendations: Restart Ultomiris treatment [place]. Recommend that this essential treatment for patient's documented control of myasthenia gravis be reinstated by the insurance company, as soon as possible. Outpatient neurology follow-up, 3 to 4 weeks post discharge. Physical and Occupational Therapy as well as respiratory therapy consults. Supportive care and, please implement fall precautions. Due to hyperreflexia not explained by patient's myasthenia gravis symptoms, MRI of the brain, cervical and thoracic spines have been ordered and, remains pending. Disposition: Neurology service will make further recommendations after reviewing the patient's MRI studies that are pending. Further recommendations, per primary team. Attestation: I spent about 80 minutes in providing care to this patient including performing the H&P, reviewing labs, reviewing imaging studies, ordering tests, counseling patient and, discussing issues pertaining to acute exacerbation and its treatment including the necessity and side effects of the plasmaphoresis. The patient and her mother, present at the bedside, had numerous questions and concerns that were addressed to their expressed understanding and satisfaction. 51% of the total time was spent in providing counseling and coordinating care for this patient. -------- Neurology Consult Note - Neurology Service Patient Name: Doug Flanagan Patient : 1990 Acct: [id number] Date of Admission: 07/30/2022 Room/Bed: [facility] PCP: DONNA PERDOMO MD 07/31/2022 Reason for Consult: History of Presenting Illness: The patient is 31 y.o. female who is being seen as a new consult for myasthenic crisis. PMHx is significant for myasthenia gravis, generalized epilepsy, and depression/anxiety. Symptom: Left frontal headaches (2/week), blurry vision, double vision, generalized weakness of all extremities, trouble breathing, stabbing abdominal pain, feeling of band around chest, nausea and vomiting. Manner of onset: Gradual over 3 weeks Description of event(s): Patient has a history of myasthenia gravis treated with ultomiris infusions every 8 weeks since 01/2022 (previously on solaris) and it was very well controlled with minimal symptoms. She was due for her infusion 11 days ago, but it was denied by insurance causing a worsening of all the above symptoms. She states she normally starts feeling these symptoms mildy in the week leading up to her infusion but they are relieved shortly after ultomiris infusion, without it they have now been worsening to the point where she cannot perform activities of daily living without assistance due to her profound weakness. Duration: 2-3 weeks Current state: Distressed from symptoms not being relieved. Severity: Moderate Modifying factors: None Associated symptoms: Listed above. Review of systems: General: No reported chills, no fever, no obesity. HEENT: Positive for headache, no head injury. No reported eye pain or eye congestion. No reported ear pain or ear congestion. No reported nasal congestion or nosebleed. No reported throat congestion or infection. Neck: No reported neck pain. No reported neck stiffness. Respiratory: Positive for shortness of breath. No reported wheezing. Cardiac: No (more content not included)... Normal [facility] ED Nursing Noteon 07-31-2022 ED Nursing Note Transport at bedside to take the pt to 7E. Pt is calm and cooperative at this time, respirations even and unlabored. Rupal Garcia RN 07/31/22 1013 [facility] ED Nursing Note Pt and family update d on the plan of care. Pt is lying in bed resting comfortably, respirations even and unlabored. Pt denies any needs at this time. Rupal Garcia RN 07/31/22 0952 [facility] ED Nursing Note Pt is in for transpo rt. Rupal Garcia RN 07/31/22 0957 [facility] ED Nursing Note Internal medicine at bedside. Rupal Garcia RN 07/31/22 0966 [facility] ED Nursing Note Patient laying in be d resting comfortably, respirations even and unlabored. No sx of distress noted. Pt medicated per order. Pt and family deny any needs at this time. No new orders. Rupal Garcia RN 07/31/22 0951 [facility] ED Nursing Note Admitting at bedside . Sissy Weeks RN 07/31/22 4867 [facility] ED Nursing Note Introduced self to p t. Pt is laying in bed resting comfortably, respirations even and unlabored. No sx of distress noted at this time. Patient denies any needs. No new orders at this moment. Rupal Garcia RN 07/31/22 0801 Normal [facility] ED Nursing Note Report received from heriberto MENDEZ. Rupal Garcia RN 07/31/22 0758 Normal [facility] ED Nursing Note Patient provided wit h breakfast menu. Family at bedside. Family provided with coffee. Patients ice pack was refilled. Patient has no further needs at this time. Micki Michael RN 07/31/22 0721 Normal [facility] Laboratory - Chemistry and C hemistry - challengeon 07-31-2022 Magnesium [Mass/Vol] 1.7 mg/dL 1.6 - 2 .3 mg/dL [facility] Magnesium [Mass/Vol]on 07-31 Interpretation and review of laboratory results Normal [facility] Progress Noteon 07-31-2022 Progress Note NIF: -35 Normal [facility] Progress Note NIF -20 3 attempts made Normal [facility] Basic metabolic 1998 panelon 07-30-2022 Anion gap [Moles/Vol] 10 mmol/L 3 - 13 mmol/L [facility] Calcium [Mass/Vol] 9.2 mg/dL 8.4 - 10. 4 mg/dL [facility] Chloride [Moles/Vol] 108 mmol/L High 98 - 10 7 mmol/L [facility] CO2 [Moles/Vol] 21 mmol/L Low 22 - 30 mmol/L [facility] Creatinine [Mass/Vol] 0.62 mg/dL 0.52 - 1.04 mg/dL [facility] GFR/1.73 sq M.predicted MDRD (S/P/Bld) [Vol rate/Area] - PINF [facility] Comment on above: Calculation based on the Chronic Kidney Disease Epidemiology Collaboration (CKD-EPI) equation refit without adjustment for race Glucose [Mass/Vol] 94 mg/dL 70 - 100 mg/dL [facility] Interpretation and review of laboratory results Abnormal [facility] Potassium [Moles/Vol] 3.5 mmol/L 3.5 - 5.1 mmol/L [facility] Sodium [Moles/Vol] 139 mmol/L 135 - 145 mmol/L [facility] Urea nitrogen [Mass/Vol] 10 mg/dL 7 - 17 mg/dL [facility] CBC W Auto Differential pane l (Bld)Ordered By: Damian Moon on 07-30-2022 Basophils (Bld) [#/Vol] 0.1 10*3/uL 0.0 - 0.2 10*3/uL [facility] Basophils/100 WBC (Bld) 0.5 % 0.0 - 2.0 % [facility] Eosinophils (Bld) [#/Vol] 0.1 10*3/uL 0.0 - 0.5 10*3/uL [facility] Eosinophils/100 WBC (Bld) 1.2 % 1.0 - 6.0 % [facility] Erythrocyte distribution width (RBC) [Ratio] 14.2 % 11.5 - 14.5 % [facility] Hematocrit (Bld) [Volume fraction] 42.1 % 35.0 - 47.0 % [facility] Hemoglobin (Bld) [Mass/Vol] 13.6 g/dL 11.7 - 16.0 g/dL [facility] Interpretation and review of laboratory results Abnormal [facility] Lymphocytes (Bld) [#/Vol] 1.7 10*3/uL 1.0 - 4.3 10*3/uL [facility] Lymphocytes/100 WBC (Bld) 15.5 % Low 20.0 - 40.0 % [facility] MCH (RBC) [Entitic mass] 27.7 pg 26.0 - 34.0 pg [facility] MCHC (RBC) [Mass/Vol] 32.4 % 32.0 - 36.0 % [facility] MCV (RBC) [Entitic vol] 85.6 fL 80.0 - 98.0 fL [facility] Monocytes (Bld) [#/Vol] 0.7 10*3/uL 0.0 - 0.8 10*3/uL [facility] Monocytes/100 WBC (Bld) 6.7 % 2.0 - 10.0 % [facility] Neutrophils (Bld) [#/Vol] 8.3 10*3/uL High 1.8 - 7.0 10*3/uL [facility] Neutrophils/100 WBC (Bld) 76.1 % 40.0 - 80.0 % [facility] Nucleated RBC/100 WBC (Bld) [Ratio] 0.0 % [facility] Platelet mean volume (Bld) [Entitic vol] 7.1 fL Low 7.4 - 12.4 fL [facility] Platelets (Bld) [#/Vol] 243 10*3/uL 140 - 440 10*3/uL [facility] RBC (Bld) [#/Vol] 4.92 10*6/uL 3.8 - 5.20 10*6/uL [facility] WBC (Bld) [#/Vol] 10.8 10*3/uL High 3.6 - 10.7 10*3/uL [facility] CBC panel Auto (Bld)on 07-30 Erythrocyte distribution width (RBC) [Ratio] 14.1 % 11.5 - 14.5 % [facility] Hematocrit (Bld) [Volume fraction] 39.7 % 35.0 - 47.0 % [facility] Hemoglobin (Bld) [Mass/Vol] 13.0 g/dL 11.7 - 16.0 g/dL [facility] Interpretation and review of laboratory results Normal [facility] MCH (RBC) [Entitic mass] 27.7 pg 26.0 - 34.0 pg [facility] MCHC (RBC) [Mass/Vol] 32.7 % 32.0 - 36.0 % [facility] MCV (RBC) [Entitic vol] 84.8 fL 80.0 - 98.0 fL [facility] Platelet mean volume (Bld) [Entitic vol] 7.4 fL 7.4 - 12.4 fL [facility] Platelets (Bld) [#/Vol] 254 10*3/uL 140 - 440 10*3/uL [facility] RBC (Bld) [#/Vol] 4.68 10*6/uL 3.8 - 5.20 10*6/uL [facility] WBC (Bld) [#/Vol] 6.6 10*3/uL 3.6 - 10.7 10*3/uL [facility] ECG 12-LEADon 07-30-2022 ECG 12-LEAD IMPRESSION: Sinus tachycardia Probable left atrial enlargement Borderline abnrm T, anterolateral leads NO st elevation or depression, t wave ivnersions in III, no stemi noted, normal intervals, unchanged from previous 314.19 Electronically Signed On 07-30-2022 17:22:51 EDT by Rivka Cid Normal [facility] ED Nursing Noteon 07-30-2022 ED Nursing Note Called pharmacy requesting patients 6 o'clock medications. Spoke to Rich. He said he will send them. Leslie Casillas RN 07/30/222038 [facility] ED Nursing Note Patient up to BSC fo r large BM, family at bedside. Maria L Hightower RN 07/30/22 194 [facility] ED Nursing Note Patient back from bourne ving infusions. Leslie Casillas RN 07/30/22 1854 [facility] ED Nursing Note Patient had episode of emesis. Order for zofran in JUL. Patient has IV port I was going to access before going for infusion. After gathering supplies At bedside. Transport arrived shortly after to take patient for infusion. Gave patient ODT zofran and patient transported to dialysis. Leslie Casillas RN 07/30/22 1637 [facility] ED Nursing Note Bed: 26 Expected date: Expected time: Means of arrival: Comments: triage Cielo Recinos RN 07/30/22 1412 [facility] ED Provider Noteon ED Provider Note Emergency Department Encounter [facility] EMERGENCY DEPT Patient: Doug Flanagan : 1990 Date of Evaluation: 07/30/2022 ED Supervising Physician: Rivka Cid DO I independently examined and evaluated Doug Flanagan. This will serve as my Supervisory note and shared attestation. I did perform a substantive portion of the visit including all aspects of the Medical Decision Making. I wore appropriate PPE for the entirety of this encounter. In brief, Doug Flanagan is a 31 y.o. female that presents to the emergency department for fatigue and chest pain. Patient does have some underlying myasthenia gravis. Patient had gone to an outpatient facility in which they were going to do plasmapheresis however they do not do plasmapheresis on an outpatient basis patient was sent to the emergency department. Focused exam: At this time is otherwise doing well Brief ED course/MDM: At this time does present for some chest pain fatigue. Differential does include myasthenia gravis crisis, ACS, pneumonia. Did have lab work consisting of a BMP which was relatively unremarkable, hCG quant was negative, CBC is negative Did have a chest x-ray which was only interpreted by myself was otherwise negative. Did have a EKG which was independently interpreted no STEMI noted unchanged from previous EKG in 2019. In the patient's need for the plasmapheresis we have elected to admit the patient to the hospital. Patient was agreeable and amenable and has been admitted MDM elements: The patient presented with chief complaint of chest pain and fatigue. The differential diagnosis associated with this patient's presentation includes CBC, CMP, hCG chest x-ray, EKG. Our workup consisted of ordering/reviewing: ACS, myasthenia gravis crisis, pneumonia. Patient is in agreement with this plan. All diagnostic, treatment, and disposition decisions were made by myself in conjunction with the Resident. I also supervised brennan portions of any procedures performed by the Resident. For all further details of the patient's emergency department visit, please see their documentation. (Comment: Please note this report has been produced using speech recognition software and may contain errors related to that system including errors in grammar, punctuation, and spelling, as well as words and phrases that may be inappropriate. If there are any questions or concerns please feel free to contact the dictating provider for clarification.) Rivka Cid, DO [employer] Rivka Cid DO 07/30/22 1723 [facility] ED Provider Note EMERGENCY DEPARTMENT ENCOUNTER Pt Name: Doug Flanagan Birthdate 1990 Date of evaluation: 07/30/2022 ED Provider: Regina Walls MD CHIEF COMPLAINT Chief Complaint Patient presents with ? Fatigue ? Chest Pain Pt has hx of Myasthenia Gravis. Pt was here today for a port placement and to receive plasmapheresis. Pt is awake and alert, came here because she is feeling CP and headache, SOB. States she is having a flare up. HISTORY OF PRESENT ILLNESS (Location/Symptom, Timing/Onset, Context/Setting, Quality, Duration, Modifying Factors, Severity) Note limiting factors. I wore appropriate PPE for the entirety of this encounter. HPI Doug Flanagan is a 31 y.o. female who presents to the emergency department for plasmapheresis. History of myasthenia gravis and epilepsy. Has been unable to obtain her MG medication for the past 10 days because of issues with her insurance. Had port placed today and went to dialysis center but was told they would not perform the plasmapheresis as an outpatient and she would need to be admitted. Complains of weakness, nausea, cough productive of white sputum which sometimes also has bright red blood, lower back pain, double vision, pain with breathing, intermittent diarrhea. States her weakness is now so that her mother is having to help her shower. Also has some mild pain around her access site and soreness in her lower chest which she describes as feeling like her diaphragm. States these symptoms all started since being off of her medication and have been progressively worsening. Experienced similar symptoms during the initial onset of her MG but states they were not this severe. Took her seizure medications today. Nursing Notes were reviewed. Limitations to history: None Outside historians: Parent REVIEW OF SYSTEMS Review of Systems Pertinent positives and negatives as per HPI. PAST MEDICAL HISTORY Past Medical History: Diagnosis Date ? E. coli colitis 2010 ? Epilepsy (HCC) ? Myasthenia gravis (HCC) SURGICAL HISTORY Past Surgical History: Procedure Laterality Date ? APPENDECTOMY 2005 ? HIP ARTHROSCOPY (HISTORICAL) Right 2012 ? OTHER SURGICAL HISTORY Right 07/22/2018 THORACIS RESECTION, THYMIC TISSUE, ANT MEDIASTINAL ? THYMECTOMY CURRENT MEDICATIONS Previous Medications ACETAMINOPHEN (TYLENOL) 325 MG TABLET Take 650 mg by mouth every 6 hours as needed. APIXABAN (ELIQUIS) 5 MG TABLET Take 5 mg by mouth in the morning and 5 mg in the evening. DIAZEPAM (VALIUM) 10 MG TABLET Take 10 mg by mouth every 8 hours as needed (this is a nasal spray not tablet, Valtoco). DIAZEPAM (VALTOCO 10 MG DOSE) 10 MG/0.1ML LIQUID as directed. ESCITALOPRAM (LEXAPRO) 10 MG TABLET Take 10 mg by mouth daily. LAMOTRIGINE (LAMICTAL) 100 MG TABLET Take 100 mg by mouth. LAMOTRIGINE (LAMICTAL) 200 MG TABLET Take 250 mg by mouth. LEVONORGESTREL (MIRENA) 20 MCG/DAY IUD 1 each by IntraUTERine route. LORAZEPAM (ATIVAN) 1 MG TABLET Take by mouth. OXCARBAZEPINE (TRILEPTAL) 150 MG TABLET Take 150 mg by mouth. RAVULIZUMAB-CWVZ (ULTOMIRIS) 1100 MG/11ML INJECTION Infuse 1,100 mL into a venous catheter every 8 (eight) weeks. RAVULIZUMAB-CWVZ (ULTOMIRIS) 300 MG/3ML INJECTION as directed Intravenous ZONISAMIDE (ZONEGRAN) 100 MG CAPSULE Take 300 mg by mouth daily. ZONISAMIDE (ZONEGRAN) 100 MG CAPSULE Take 200 mg by mouth daily. ALLERGIES Dilantin [phenytoin], Keppra [levetiracetam], Pcn [penicillins], Shellfish-derived products, and Other FAMILY HISTORY Family History Problem Relation Name Age of Onset ? Cancer Maternal Grandmother ? Heart disease Maternal Grandfather ? Multiple sclerosis Sister SOCIAL HISTORY Social History Socioeconomic History ? Marital status: Single Tobacco Use ? Smoking status: Never ? Smokeless tobacco: Never Substance and Sexual Activity ? Alcohol use: No ? Drug use: No Social Determinants of Health Intimate Partner Violence: Not At Risk ? Fear of Current or Ex-Partner: No ? Emotionally Abused: No ? Physically Abused: No ? Sexually Abused: No SCREENINGS PHYSICAL EXAM ED Triage Vitals [07/30/22 1248] Temp Heart Rate Resp BP 36.8 ?C (98.3 ?F) (!) 112 18 114/80 SpO2 Temp Source Heart Rate Source Patient Position 96 % Oral Monitor -- BP Location FiO2 (%) -- -- Physical Exam Vitals reviewed. Constitutional: Appearance: She is ill-appearing. She is not toxic-appearing or diaphoretic. Comments: Left chest catheter HENT: Mouth/Throat: Mouth: Mucous membranes are moist. Pharynx: Oropharynx is clear. Cardiovascular: Rate and Rhythm: Normal rate and regular rhythm. Heart sounds: Normal heart sounds. No murmur heard. No friction rub. No gallop. Pulmonary: Effort: Pulmonary effort is normal. No respiratory distress. Breath sounds: Normal breath sounds. No wheezing, rhonchi or rales. Abdominal: Palpations: Abdomen is soft. Musculoskeletal: Right lower l (more content not included)... Normal [facility] ED Provider Note Emergency Department Encounter [facility] EMERGENCY DEPT Patient: Doug Flanagan : 1990 Date of Evaluation: 07/30/2022 ED Provider: Edwige Bob PA-C I saw the patient as the Clinician in Triage and performed a brief history and physical exam, established acuity, and ordered appropriate tests to develop basic plan of care. I wore appropriate PPE for the entirety of this encounter. Brief HPI: In brief, Doug Flanagan is a 31 y.o. female that presents for concern of myasthenia gravis crisis. Patient says that she has been in touch with her neurologist to arrange for a port to be placed for her so she could receive plasmapheresis. Patient says that she attempted to get this done outpatient but she was told that she needs to be admitted to the hospital in order to receive the plasmapheresis treatment. Patient says that she feels like she has had generalized fatigue, weakness, and shortness of breath getting progressively worse over the last several days. No recent fever, chills, abdominal pain, nausea, vomiting. Focused Physical exam: Alert, oriented, no acute distress. Vital signs markable for elevated heart rate. Cardiac auscultation with elevated rate, regular rhythm. Lungs clear to auscultation bilaterally. Plan/MDM: We will obtain labs, imaging, and anticipate admission for further treatment. Patients symptoms are consistent with sepsis, severe sepsis, or septic shock (If yes use .sepsiscoremeasure): No Please see subsequent provider note for further details and disposition (Comment: Please note this report has been produced using speech recognition software and may contain errors related to that system including errors in grammar, punctuation, and spelling as well as words and phrases that may be inappropriate. If there are any questions or concerns please feel free to contact the dictating provider for clarification) Edwige Bob PA-C [facility] Edwige Bob PA-C 07/30/22 1443 Normal [facility] HBV surface Ab IA Qnon 07-30 Interpretation: <8.0 Non-Reactive 8.0-11.9 Equivocal >= 12.0 Ab Detected Note: If an equivocal result is interpreted, an antibody status is unable to be determined. Collect new specimen if clinically indicated. [facility] HBV surface Ag IA Qlon 07-30 Interpretation and review of laboratory results Normal [facility] IR CVC tunneled dialysis cat heter placementon 07-30-2022 Insertion of left-sided dual-lumen tunneled dialysis catheter, with tip in the expected location of the right atrium. Plan: The catheter may be used immediately. PROCEDURE SUMMARY: - Venous access with ultrasound guidance - Tunneled central venous catheter insertion with fluoroscopic guidance - Additional procedure(s): None PROCEDURE DETAILS: Pre-procedure Consent: Informed consent for the procedure including risks, benefits and alternatives was obtained and time-out was performed prior to the procedure. Preparation (MIPS): The site was prepared and draped using all elements of maximal sterile barrier technique including sterile gloves, sterile gown, cap, mask, large sterile sheet, sterile ultrasound probe cover, hand hygiene and cutaneous antisepsis with 2% chlorhexidine. Medical reason for site preparation exception (MIPS): Not applicable Anesthesia/sedation Level of anesthesia/sedation: No sedation Access Local anesthesia was administered. The vessel was sonographically evaluated and determined to be patent. Real time ultrasound was used to visualize needle entry into the vessel and a permanent image was stored. Vein accessed (QCDR): Internal jugular vein Access technique: Micropuncture set with 21 gauge needle Venography Indication for venography: Not performed Vein catheterized: Not applicable Findings: Not applicable Catheter placement An incision was made near the venous access site and the catheter was tunneled subcutaneously to the venous access site. The catheter was advanced via a peel-away sheath into the vein under fluoroscopic guidance. Catheter tip location was fluoroscopically verified and a permanent image was stored. Catheter placed: 15.5 Fr 28 cm dual lumen Titan Tunneled Dialysis Catheter Catheter tip position: Cavoatrial Junction. Catheter flush: Heparin (100 units/mL) Closure A sterile dressing was applied. Access site closure technique: Tissue adhesive Catheter securement technique: Non-absorbable suture Contrast Contrast agent: None Contrast volume (mL): 0 Radiation Dose Fluoroscopy time (minutes): 0.7 Fluoroscopy Dose: Ka,r = 3.9 mGy Additional Details Additional description of procedure: None Equipment details: None Specimens removed: None Estimated blood loss (mL): Less than 10 Report Dictated on Electronically Signed By: Virgil Valverde Electronically Signed Date/Time: 07/30/2022 10:35 AM [facility] [employer] Patient Name: DOUG FLANAGAN : 1990 Exam Date/Time: 07/30/2022 10:10 Procedure: IR CVC TUNNELED DIALYSIS CATHETER PLACEMENT Ordering Provider: CANTOR PRETI Reason For Exam: EXACERBATION OF MYASTHENIA GRAVIS PROCEDURE: Tunneled central venous catheter placement Procedural Personnel Attending physician(s): Virgil Valverde Indication: Plasmapheresis for myasthenia gravis Additional clinical history: None Complications: No immediate complications. [facility] Abram, Virgil King MD - 07/30/2022 Patient Name: DOUG FLANAGAN : 1990 Exam Date/Time: 07/30/2022 10:10 Procedure: IR CVC TUNNELED DIALYSIS CATHETER PLACEMENT Ordering Provider: CANTOR PRETI Reason For Exam: EXACERBATION OF MYASTHENIA GRAVIS PROCEDURE: Tunneled central venous catheter placement Procedural Personnel Attending physician(s): Virgil Valverde Indication: Plasmapheresis for myasthenia gravis Additional clinical history: None Complications: No immediate complications. IMPRESSION: Insertion of left-sided dual-lumen tunneled dialysis catheter, with tip in the expected location of the right atrium. Plan: The catheter may be used immediately. PROCEDURE SUMMARY: - Venous access with ultrasound guidance - Tunneled central venous catheter insertion with fluoroscopic guidance - Additional procedure(s): None PROCEDURE DETAILS: Pre-procedure Consent: Informed consent for the procedure including risks, benefits and alternatives was obtained and time-out was performed prior to the procedure. Preparation (MIPS): The site was prepared and draped using all elements of maximal sterile barrier technique including sterile gloves, sterile gown, cap, mask, large sterile sheet, sterile ultrasound probe cover, hand hygiene and cutaneous antisepsis with 2% chlorhexidine. Medical reason for site preparation exception (MIPS): Not applicable Anesthesia/sedation Level of anesthesia/sedation: No sedation Access Local anesthesia was administered. The vessel was sonographically evaluated and determined to be patent. Real time ultrasound was used to visualize needle entry into the vessel and a permanent image was stored. Vein accessed (QCDR): Internal jugular vein Access technique: Micropuncture set with 21 gauge needle Venography Indication for venography: Not performed Vein catheterized: Not applicable Findings: Not applicable Catheter placement An incision was made near the venous access site and the catheter was tunneled subcutaneously to the venous access site. The catheter was advanced via a peel-away sheath into the vein under fluoroscopic guidance. Catheter tip location was fluoroscopically verified and a permanent image was stored. Catheter placed: 15.5 Fr 28 cm dual lumen Titan Tunneled Dialysis Catheter Catheter tip position: Cavoatrial Junction. Catheter flush: Heparin (100 units/mL) Closure A sterile dressing was applied. Access site closure technique: Tissue adhesive Catheter securement technique: Non-absorbable suture Contrast Contrast agent: None Contrast volume (mL): 0 Radiation Dose Fluoroscopy time (minutes): 0.7 Fluoroscopy Dose: Ka,r = 3.9 mGy Additional Details Additional description of procedure: None Equipment details: None Specimens removed: None Estimated blood loss (mL): Less than 10 Report Dictated on Electronically Signed By: Virgil Valverde Electronically Signed Date/Time: 07/30/2022 10:35 AM EDT [facility] Radiology Study observation (narrative) [facility] IR CVC tunneled dialysis cat heter placementOrdered By: Virgil Valverde on 07-30-2022 [facility] [employer] Work Phone: Laboratory - Chemistry and C hemistry - challengeon 07-30-2022 HCG.beta subunit Qn Females < 5 mIU/mL [facility] Magnesium [Mass/Vol] 1.9 mg/dL 1.6 - 2 .3 mg/dL [facility] Laboratory - Microbiology an d Antimicrobial susceptibilityon 07-30-2022 HBV surface Ab IA Qn 314.1 m[IU]/mL mIU/mL [facility] HBV surface Ag IA Ql Not detected Not Detected [facility] Magnesium [Mass/Vol]on 07-30 Interpretation and review of laboratory results Normal [facility] [employer] No Panel Informationon 07-30 [facility] Sinus tachycardia Probable left atrial enlargement Borderline abnrm T, anterolateral leads NO st elevation or depression, t wave ivnersions in III, no stemi noted, normal intervals, unchanged from previous 07.14.18 Electronically Signed On 07-30-2022 17:22:51 EDT by Rivka Cid CV Rivka Garzon, DO - 07/30/2022 IMPRESSION: Sinus tachycardia Probable left atrial enlargement Borderline abnrm T, anterolateral leads NO st elevation or depression, t wave ivnersions in III, no stemi noted, normal intervals, unchanged from previous 07.14.18 Electronically Signed On 07-30-2022 17:22:51 EDT by Rivka Cid [employer] Values in should double every 2 to 3 days for the first 6 weeks. Elevated concentrations of human chorionic gonadotropin (hCG) measured in the first trimester of are observed in normal , but may serve as an indication of chorionic carcinoma, hydatiform mole, or multiple . Decreasing hCG concentrations indicate threatened or missed , recent termination of , ectopic , gestosis or intrauterine . Regina- and postmenopausal females may have detectable hCG concentrations (< or = to 14 mIU/mL) due to pituitary production of hCG. Serum follicle-stimulating hormone measurement may aid in ruling-out in this population. Cutoffs of greater than 20 to 45 mIU/mL have been suggested and are method dependent. False-elevations (called phantom human chorionic gonadotropin: hCG) may occur with patients who have human antianimal or heterophilic antibodies. Some specimens may not dilute linearly due to abnormal forms of hCG. Elevated hCG concentrations not associated with are found in patients with other diseases such as tumors of the germ cells, ovaries, bladder, pancreas, stomach, lungs, and liver. This test is not intended to detect or monitor tumors or gestational trophoblastic disease. Desktime No Panel InformationOrdered By: Rivka Cid on 07-30-2022 P [place] 38 degrees [employer] Work Phone: NV Interval 185 ms [employer] Work Phone: QRS [place] 8 degrees [employer] Work Phone: QRSD Interval 95 ms [place] [employer] Work Phone: QT Interval 348 ms [employer] Work Phone: QTC Interval 462 ms [employer] Work Phone: T Wave [place] 3 degrees [employer] Work Phone: [employer] Phone: Nursing Noteon 07-30-2022 Nursing Note Pt provided with discharge instructions and all questions answered. Steady, independent gait on unit. Discharged with all belongings. Pt discharge to registration via wheelchair by IA with mother. Pt to go to dialysis. Normal [employer] [facility] Vital signsOrdered By: Irma Cid on 07-30-2022 Heart rate 105 /min bpm [employer] Phone: XR Chest 2 Viewson Radiology Study observation (narrative) Via[employer] No acute cardiopulmonary disease. Report Dictated on Electronically Signed By: Khurram Segura Electronically Signed Date/Time: 07/30/2022 4:11 PM T [facility] Patient Name: DOUG FLANAGAN : 1990 Exam Date/Time: 07/30/2022 16:13 Procedure: XR CHEST 2 VIEWS Ordering Provider: BOB RACHEL Reason For Exam: DYSPNEA CHEST X-RAY PA/LATERAL CLINICAL INDICATION: DYSPNEA Frontal and lateral plain films of the chest were obtained. COMPARISON: 07/24/2018 FINDINGS: Cardiomediastinal silhouette: Right chest port catheter in place and there is a tunneled left dialysis catheter. The cardiomediastinal silhouette and pulmonary vascularity are normal. Lungs: No evidence of interstitial edema, lung consolidation, or pleural effusion. Bones: Unremarkable [facility] Khurram Segura M D - 07/30/2022 Patient Name: DOUG FLANAGAN : 1990 Exam Date/Time: 07/30/2022 16:13 Procedure: XR CHEST 2 VIEWS Ordering Provider: BOB RACHEL Reason For Exam: DYSPNEA CHEST X-RAY PA/LATERAL CLINICAL INDICATION: DYSPNEA Frontal and lateral plain films of the chest were obtained. COMPARISON: 07/24/2018 FINDINGS: Cardiomediastinal silhouette: Right chest port catheter in place and there is a tunneled left dialysis catheter. The cardiomediastinal silhouette and pulmonary vascularity are normal. Lungs: No evidence of interstitial edema, lung consolidation, or pleural effusion. Bones: Unremarkable IMPRESSION: No acute cardiopulmonary disease. Report Dictated on Electronically Signed By: Khurram Segura Electronically Signed Date/Time: 07/30/2022 4:11 PM [facility] 2 ViewsOrdered By: Khurram Segura on 07-30-2022 Via[employer] Work Phone: CARECOORDon 07-29-2022 [place] Spoke with patient. Reviewed arrival time at 7:00 am to [facility] on 07-30-22. It is ok to have a light breakfast and take your morning medications. Directions given for Same Day Surgery. Follow signs around the hospital to Main Entrance which is located at [address] from [address]. You may use [employer]. Each patient to receive one validation ticket for [employer]. 7 Normal [facility] INR in Blood by Coagulation assayon 07-29-2022 INR Coag (Bld) [Relative time] 1.0 {INR} [facility] Laboratory - Coagulationon 0 07-29-2022 PT Coag (PPP) [Time] 12.8 s 11.7-14.9 [facility] Absolute lymphocyte countOrd ered By: ED PROVIDER on 07-17-2022 Lymphocytes Auto (Unsp spec) [#/Vol] 1.79 10*3/uL 0.83-4.51 [facility] Basophil percentageOrdered B y: ED PROVIDER on 07-17-2022 Basophil percentage 0 SEEN /hpf 0-5 [facility] Basophils/100 WBC (Bld) 0.5 % 0-1 [facility] Chloride [Moles/Vol] 111 mmol/L 98-107 [facility] Eosinophils/100 WBC (Bld) 1.5 % 0-5 [facility] Glucose [Mass/Vol] 89 mg/dL 74-106 [facility] Neutrophils (Bld) [#/Vol] 5.5 10*3/uL 2.0-7.7 [facility] Neutrophils/100 WBC (Bld) 68.4 % 47-70 [facility] Potassium [Moles/Vol] 3.4 mmol/L 3.5-5.1 [facility] Sodium [Moles/Vol] 140 mmol/L 136-145 [facility] WBC (Bld) [#/Vol] 8.1 10*3/uL 4.4-11.0 [facility] Basophil percentageOrdered B y: Dr. Posada on 07-17-2022 Bilirubin [Mass/Vol] 0.40 mg/dL 0.20-1.00 [facility] Comment on above: For patients on eltr ombopag therapy, use of Dimension [place] TBIL is not recommended. Protein [Mass/Vol] 7.6 g/dL 6.4-8.2 [facility] Beta hCG serum qualOrdered B y: ED PROVIDER on 07-17-2022 Beta HCG ( test) Ql Negative [facility] Bilirubin Test strip Ql (U)O rdered By: ED PROVIDER on 07-17-2022 Bilirubin Ql (U) Negative Negative [facility] Blood erythrocytes count (nu mber/volume)Ordered By: ED PROVIDER on 07-17-2022 RBC (Bld) [#/Vol] 4.91 10*6/uL 4.2-5.4 [facility] Blood hemoglobin measurement (mass/volume)Ordered By: ED PROVIDER on 07-17-2022 Hemoglobin (Bld) [Mass/Vol] 13.6 g/dL 12.0-15.0 [facility] Blood lymphocytes/100 leukoc ytesOrdered By: ED PROVIDER on 07-17-2022 Lymphocytes/100 WBC (Bld) 22.2 % 19-41 [facility] Blood monocytes/100 leukocyt esOrdered By: ED PROVIDER on 07-17-2022 Monocytes/100 WBC (Bld) 7.0 % 0-10 [facility] Blood platelet mean volumeOr dered By: ED PROVIDER on 07-17-2022 Platelet mean volume (Bld) [Entitic vol] 10.1 fL 6.2-12.0 [facility] Determination of erythrocyte mean corpuscular volume (MCV)Ordered By: ED PROVIDER on 03-17-2023 MCV (RBC) [Entitic vol] 85.1 fL 81-99 [facility] Direct bilirubinOrdered By: Dr. Posada on 07-17-2022 Bilirubin.direct [Mass/Vol] 0.06 mg/dL 0.00-0.30 [facility] Hematocrit Auto (Bld) [Volum e fraction]Ordered By: ED PROVIDER on 07-17-2022 Hematocrit (Bld) [Volume fraction] 41.8 % 37-47 [facility] Ketones Test strip Ql (U)Ord ered By: ED PROVIDER on 07-17-2022 Ketones Ql (U) 5 mg/dl Negative [facility] Laboratory - Chemistry and C hemistry - challengeOrdered By: Dr. Posada on 07-17-2022 ALP [Catalytic activity/Vol] 92 U/L 45-117 [facility] ALT [Catalytic activity/Vol] 19 U/L 13-56 [facility] Globulin (S) [Mass/Vol] 3.4 g/dL 2.2-4.2 [facility] Lipase [Catalytic activity/Vol] 161 U/L 73-393 [facility] Laboratory - Chemistry and C hemistry - challengeOrdered By: ED PROVIDER on 07-17-2022 CO2 [Moles/Vol] 21.0 mmol/L 21.0-32.0 [facility] Urea nitrogen/Creatinine [Mass ratio] 10.8 mg/mg 10-20 [facility] Laboratory - Hematology and Cell countsOrdered By: ED PROVIDER on 07-17-2022 Erythrocyte distribution width (RBC) [Entitic vol] 42.0 fL 35.1-43.9 [facility] Erythrocyte distribution width (RBC) [Ratio] 13.5 % 11.6-14.6 [facility] Immature granulocytes/100 WBC (Bld) 0.400 % 0.0-0.9 [facility] Comment on above: IG% - Immature Granu locytes (promyelocytes, myelocytes and metamyelocytes) > 1% indicates that a LEFT SHIFT is Present. MCH (RBC) [Entitic mass] 27.7 pg 27.0-32.0 [facility] Nucleated RBC/100 WBC (Bld) [Ratio] 0 % 0-5 [facility] MCHC Auto (RBC) [Mass/Vol]Or dered By: ED PROVIDER on 07-17-2022 MCHC (RBC) [Mass/Vol] 32.5 g/dL 32-36 [facility] Mucus LM Ql (Urine sed)Order ed By: ED PROVIDER on 07-17-2022 Mucus Ql (Urine sed) 0 SEEN /hpf [facility] Nitrite Test strip Ql (U)Ord ered By: ED PROVIDER on 07-17-2022 Nitrite Ql (U) Negative Negative [facility] No Panel InformationOrdered By: Dr. Posada on 07-17-2022 D-Dimer Quantitative (PE/DVT) < 0.27 FEU/ug/m 0.27-0.49 [facility] Comment on above: NORMAL D-Dimer level (<0.50) indicates no DVT or PE. Troponin I High Sensitivity 3 pg/mL 3.0-54.0 [facility] Comment on above: Please Note: New Jackie t Units and Gender Specific Reference Ranges. For more information see Policy Stat Procedure [place] High Sensitivity Troponin (TNIH) and attachments. No Panel InformationOrdered By: ED PROVIDER on 07-17-2022 Estimated Creatinine Clearance Calc 85.52 ml/min [facility] Estimated GFR (MDRD) Amer 115 mL/min >60 [facility] Comment on above: GFR Calc Estimated GFR (MDRD) Non-Af Amer 95 mL/min >60 [facility] Comment on above: Non- GFR Calc Platelets bldOrdered By: ED PROVIDER on 07-17-2022 Platelets (Bld) [#/Vol] 249 10*3/uL 150-450 [facility] Protein Test strip Ql (U)Ord ered By: ED PROVIDER on 07-17-2022 Protein Ql (U) Negative Negative [facility] Serum or plasma albumin traci urement (mass/volume)Ordered By: Dr. Posada on 07-17-2022 Albumin [Mass/Vol] 4.2 g/dL 3.2-5.0 [facility] Serum or plasma calcium traci urement (mass/volume)Ordered By: ED PROVIDER on 07-17-2022 Calcium [Mass/Vol] 9.4 mg/dL 8.5-10.1 [facility] Serum or plasma creatinine m easurement (mass/volume)Ordered By: ED PROVIDER on 07-17-2022 Creatinine [Mass/Vol] 0.74 mg/dL 0.55-1.02 [facility] Comment on above: The validity of the calculated GFR & GFRAA in patients over 70 years has not been determined. Clinical correlation is essential. Serum or plasma urea nitroge n measurement (mass/volume)Ordered By: ED PROVIDER on 07-17-2022 Urea nitrogen [Mass/Vol] 8 mg/dL 7-18 [facility] Squamous epithelial cells de tection in urine sediment by light microscopyOrdered By: ED PROVIDER on 07-17-2022 Epithelial cells.squamous LM Ql (Urine sed) 0-5 SEEN /hpf 5-10 [facility] Thin prep Papanicolaou smear with manual screeningOrdered By: Dr. Posada on 07-17-2022 Thin prep Papanicolaou smear with manual screening 15 U/L 15-37 [facility] Thin prep Papanicolaou smear with manual screeningOrdered By: ED PROVIDER on 07-17-2022 Thin prep Papanicolaou smear with manual screening 8 5-15 [facility] Urine blood detectionOrdered By: ED PROVIDER on 07-17-2022 RBC Ql (U) 10 /ul Negative [facility] RBC Ql (U) 0 SEEN /hpf 0-5 [facility] Urine clarityOrdered By: ED PROVIDER on 07-17-2022 Clarity (U) Clear Clear [facility] Urine color determinationOrd ered By: ED PROVIDER on 07-17-2022 Color (U) Yellow Yellow [facility] Urine glucose detectionOrder ed By: ED PROVIDER on 07-17-2022 Glucose Ql (U) Normal mg/dl Normal [facility] Urine leukocyte esterase det ection by dipstickOrdered By: ED PROVIDER on 07-17-2022 Leukocyte esterase Test strip Ql (U) 25 /ul Negative [facility] Urine pHOrdered By: ED PROVI EMBER on 07-17-2022 pH (U) 5.0 [pH] 5.0 - 8.0 [facility] Urine sediment bacteria coun t by microscopy (number/high power field)Ordered By: ED PROVIDER on 07-17-2022 Bacteria LM.HPF (Urine sed) [#/Area] 0 /[HPF] None Seen [facility] Urine specific gravity measu rementOrdered By: ED PROVIDER on 07-17-2022 Specific gravity (U) [Rel density] 1.010 1.002-1.03 0 [facility] Urobilinogen Auto test strip Ql (U)Ordered By: ED PROVIDER on 07-17-2022 Urobilinogen Ql (U) Normal mg/dl Normal [facility] Absolute lymphocyte countOrd ered By: Dr. Pcek on 05-27-2022 Lymphocytes Auto (Unsp spec) [#/Vol] 1.51 10*3/uL 0.83-4.51 [facility] Basophil percentageOrdered B y: Dr. Peck on 05-27-2022 Basophil percentage 0-5 SEEN /hpf 0-5 [facility] Basophils/100 WBC (Bld) 0.5 % 0-1 [facility] Bilirubin [Mass/Vol] 0.30 mg/dL 0.20-1.00 [facility] Comment on above: For patients on eltr ombopag therapy, use of Dimension [place] TBIL is not recommended. Chloride [Moles/Vol] 112 mmol/L 98-107 [facility] Eosinophils/100 WBC (Bld) 1.5 % 0-5 [facility] Glucose [Mass/Vol] 103 mg/dL 74-106 [facility] Comment on above: Fasting Glucose resu lt from 100 to 125 mg/dL suggests IMPAIRED HOMEOSTASIS per A.D.A. criteria. Neutrophils (Bld) [#/Vol] 5.2 10*3/uL 2.0-7.7 [facility] Neutrophils/100 WBC (Bld) 70.1 % 47-70 [facility] Potassium [Moles/Vol] 3.6 mmol/L 3.5-5.1 [facility] Protein [Mass/Vol] 7.0 g/dL 6.4-8.2 [facility] Sodium [Moles/Vol] 139 mmol/L 136-145 [facility] WBC (Bld) [#/Vol] 7.5 10*3/uL 4.4-11.0 [facility] Beta hCG serum qualOrdered B y: Dr. Peck on 05-27-2022 Beta HCG ( test) Ql Negative [facility] Bilirubin Test strip Ql (U)O rdered By: Dr. Peck on 05-27-2022 Bilirubin Ql (U) Negative Negative [facility] Blood erythrocytes count (nu mber/volume)Ordered By: Dr. Peck on 05-27-2022 RBC (Bld) [#/Vol] 4.63 10*6/uL 4.2-5.4 [facility] Blood hemoglobin measurement (mass/volume)Ordered By: Dr. Peck on 05-27-2022 Hemoglobin (Bld) [Mass/Vol] 12.6 g/dL 12.0-15.0 [facility] Blood lymphocytes/100 leukoc ytesOrdered By: Dr. Peck on 05-27-2022 Lymphocytes/100 WBC (Bld) 20.2 % 19-41 [facility] Blood monocytes/100 leukocyt esOrdered By: Dr. Peck on 05-27-2022 Monocytes/100 WBC (Bld) 7.4 % 0-10 [facility] Blood platelet mean volumeOr dered By: Dr. Peck on 05-27-2022 Platelet mean volume (Bld) [Entitic vol] 9.3 fL 6.2-12.0 [facility] Determination of erythrocyte mean corpuscular volume (MCV)Ordered By: Dr. Peck on 05-27-2022 MCV (RBC) [Entitic vol] 84.7 fL 81-99 [facility] Direct bilirubinOrdered By: Dr. Peck on 05-27-2022 Bilirubin.direct [Mass/Vol] 0.09 mg/dL 0.00-0.30 [facility] Hematocrit Auto (Bld) [Volum e fraction]Ordered By: Dr. Peck on 05-27-2022 Hematocrit (Bld) [Volume fraction] 39.2 % 37-47 [facility] INR in Blood by Coagulation assayOrdered By: Dr. Peck on 05-27-2022 INR Coag (Bld) [Relative time] 1.1 {INR} [facility] Ketones Test strip Ql (U)Ord ered By: Dr. Peck on 05-27-2022 Ketones Ql (U) Negative Negative [facility] Laboratory - Chemistry and C hemistry - challengeOrdered By: Dr. Peck on 05-27-2022 ALP [Catalytic activity/Vol] 77 U/L 45-117 [facility] ALT [Catalytic activity/Vol] 18 U/L 13-56 [facility] CO2 [Moles/Vol] 20.0 mmol/L 21.0-32.0 [facility] Globulin (S) [Mass/Vol] 3.5 g/dL 2.2-4.2 [facility] Urea nitrogen/Creatinine [Mass ratio] 10.7 mg/mg 10-20 [facility] Laboratory - CoagulationOrde red By: Dr. Peck on 05-27-2022 aPTT Coag (Bld) [Time] 101.1 s 24.1-36.2 [facility] Comment on above: CRITICAL VALUE VERIF IED. CALLED TO GONSALO MENDEZ (ER)05/27/22 1148 Rivka Becerra.RESULTS READ BACK BY SAME. PT Coag (PPP) [Time] 13.5 s 11.7-14.9 [facility] Laboratory - Hematology and Cell countsOrdered By: Dr. Peck on 05-27-2022 Erythrocyte distribution width (RBC) [Entitic vol] 43.0 fL 35.1-43.9 [facility] Erythrocyte distribution width (RBC) [Ratio] 13.9 % 11.6-14.6 [facility] Immature granulocytes/100 WBC (Bld) 0.300 % 0.0-0.9 [facility] Comment on above: IG% - Immature Granu locytes (promyelocytes, myelocytes and metamyelocytes) > 1% indicates that a LEFT SHIFT is Present. MCH (RBC) [Entitic mass] 27.2 pg 27.0-32.0 [facility] Nucleated RBC/100 WBC (Bld) [Ratio] 0 % 0-5 [facility] MCHC Auto (RBC) [Mass/Vol]Or dered By: Dr. Peck on 05-27-2022 MCHC (RBC) [Mass/Vol] 32.1 g/dL 32-36 [facility] Mucus LM Ql (Urine sed)Order ed By: Dr. Peck on 05-27-2022 Mucus Ql (Urine sed) 0 SEEN /hpf [facility] Nitrite Test strip Ql (U)Ord ered By: Dr. Peck on 05-27-2022 Nitrite Ql (U) Negative Negative [facility] Comment on above: Previous reported re sult: Positive Edited by: TENZIN on 05/27/22:1158 AMENDED REPORT 05/27/22 1158 NITRITE UR previously reported as: Positive H No Panel InformationOrdered By: Dr. Peck on 05-27-2022 Estimated Creatinine Clearance Calc 97.36 ml/min [facility] Estimated GFR (MDRD) Amer 134 mL/min >60 [facility] Comment on above: GFR Calc Estimated GFR (MDRD) Non-Af Amer 111 mL/min >60 [facility] Comment on above: Non- GFR Calc Platelets bldOrdered By: Dr. Peck on 05-27-2022 Platelets (Bld) [#/Vol] 241 10*3/uL 150-450 [facility] Protein Test strip Ql (U)Ord ered By: Dr. Peck on 05-27-2022 Protein Ql (U) Negative Negative [facility] Comment on above: Previous reported re sult: 30 mg/dlEdited by: TENZIN on 05/27/22:1158 AMENDED REPORT 05/27/22 1158 PROT DIPSTX previously reported as: 30 H mg/dl Serum or plasma albumin traci urement (mass/volume)Ordered By: Dr. Peck on 05-27-2022 Albumin [Mass/Vol] 3.5 g/dL 3.2-5.0 [facility] Serum or plasma calcium traci urement (mass/volume)Ordered By: Dr. Peck on 05-27-2022 Calcium [Mass/Vol] 8.8 mg/dL 8.5-10.1 [facility] Serum or plasma creatinine m easurement (mass/volume)Ordered By: Dr. Peck on 05-27-2022 Creatinine [Mass/Vol] 0.65 mg/dL 0.55-1.02 [facility] Comment on above: The validity of the calculated GFR & GFRAA in patients over 70 years has not been determined. Clinical correlation is essential. Serum or plasma urea nitroge n measurement (mass/volume)Ordered By: Dr. Peck on 05-27-2022 Urea nitrogen [Mass/Vol] 7 mg/dL 7-18 [facility] Squamous epithelial cells de tection in urine sediment by light microscopyOrdered By: Dr. Peck on 05-27-2022 Epithelial cells.squamous LM Ql (Urine sed) 0 SEEN /hpf 5-10 [facility] Thin prep Papanicolaou smear with manual screeningOrdered By: Dr. Peck on 05-27-2022 Thin prep Papanicolaou smear with manual screening 11 U/L 15-37 [facility] Thin prep Papanicolaou smear with manual screening 7 5-15 [facility] Urine blood detectionOrdered By: Dr. Peck on 05-27-2022 RBC Ql (U) Negative Negative [facility] RBC Ql (U) 0 SEEN /hpf 0-5 [facility] Urine clarityOrdered By: Dr. Peck on 05-27-2022 Clarity (U) Sl. Cloudy Clear [facility] Urine color determinationOrd ered By: Dr. Peck on 05-27-2022 Color (U) Yellow Yellow [facility] Urine glucose detectionOrder ed By: Dr. Peck on 05-27-2022 Glucose Ql (U) Normal mg/dl Normal [facility] Urine leukocyte esterase det ection by dipstickOrdered By: Dr. Peck on 05-27-2022 Leukocyte esterase Test strip Ql (U) 25 /ul Negative [facility] Comment on above: Previous reported re sult: 500 /ulEdited by: TENZIN on 05/27/22:1158 AMENDED REPORT 05/27/22 1158 LEUK ESTERASE previously reported as: 500 H /ul Urine pHOrdered By: Dr. Bhanu elmore on 05-27-2022 pH (U) 8.0 [pH] 5.0 - 8.0 [facility] Urine sediment bacteria coun t by microscopy (number/high power field)Ordered By: Dr. Peck on 05-27-2022 Bacteria LM.HPF (Urine sed) [#/Area] 0 /[HPF] None Seen [facility] Urine specific gravity measu rementOrdered By: Dr. Peck on 05-27-2022 Specific gravity (U) [Rel density] 1.010 1.002-1.03 0 [facility] Urobilinogen Auto test strip Ql (U)Ordered By: Dr. Peck on 05-27-2022 Urobilinogen Ql (U) Normal mg/dl Normal [facility] PAP FLUID CERVICAL SCREENING on 05-01-2022 Case Report Gynecologic Cytology Report Case: [id number] Authorizing Provider: Sarah Pop MD Collected: 04/29/2022 09:09 AM Ordering Location: OB/Gynecology Received: 04/29/2022 01:46 PM First Screen: Majo Olivares, CT, ASCP Rescreen: Joann Pat, CT, ASCP Specimen: Pap, Modular Set Crew Member, Screening, CERVICAL SCREENING FLUID [facility] Clinical History ABNORMAL PAP[H/o CKC [facility] Cytology Interpretation Negative [facility] FINAL DIAGNOSIS A - CERVICAL SCREENI NG FLUID Satisfactory for interpretation Negative for Intraepithelial lesion or malignancy. [facility] HPV Requested? Yes, automatic HPV patients over 30 [facility] LMP IUD [facility] Pap Disclaimer The Pap Smear is a screening test for cervical cancer. False negative results occur with all screening tests, emphasizing the need for rescreening at recommended intervals, and clinical correlation. [facility] PAP Modular Set Crew Member Comment This specimen has be en analyzed by the emoteSharePrep Imaging System, an automated imaging and review system, which assists the laboratory in evaluating cells on ThinPrep Pap tests. Following automated imaging, selected moore from every slide are reviewed by a vacuum drum drier operator. [facility] Performing Lab Technical component, vacuum drum drier operator screening performed at [facility], [address] [facility] [address] CLIA# [id number] Diagnostic interpretation performed at [facility] [address] CLIA# [id number] Tree Surgeon Helper: Margarito Doran M.D. [facility] HPV W/GENOTYPE THIN PREPon 1 HPV 16 Ag Ql (Unsp spec) Negative Negative for HPV DNA high risk type 16 by PCR [facility] HPV 18 Ag Ql (Unsp spec) Negative Negative for HPV DNA high risk type 18 by PCR [facility] HPV 31+33+35+39+45+51+52+5 6+58+59+66+68 DNA CHRISTIANO+probe Ql (Cvx) Negative for HPV DNA high risk types: 31,33,35,39,45,51,52,56, 58,59,66,68 by PCR. Negative for HPV DNA high risk types: 31,33,35,3 9,45,51,52 ,56,58,59, 66,68 by PCR. [facility] SURGICAL PATHOLOGYon Case Report Surgical Pathology Report Case: [id number] Authorizing Provider: Sarah Pop MD Collected: 04/29/2022 09:09 AM Ordering Location: OB/Gynecology Received: 04/29/2022 01:34 PM Pathologist: Micheal Steven MD Specimens: A) - ENDOCERVIX CURETTINGS, ECC B) - CERVIX BIOPSY, 10 C) - CERVIX BIOPSY, 2 D) - CERVIX BIOPSY, 7 [facility] Clinical History LLOYD 2 [facility] FINAL DIAGNOSIS A. Endocervix, curettage: - Benign endocervical glandular and squamous epithelium. B-D. Cervix, 10:00, 2:00 and 7:00, biopsies: - Benign squamous mucosa. MJM 04/30/2022 [facility] Gross Description A. ENDOCERVIX CURETT INGS Received in formalin is denny feathery tissue aggregating to 0.4 x 0.3 x 0.1 cm. Totally submitted in one cassette. May not survive processing. B. CERVIX BIOPSY Received in formalin are pieces of denny soft tissue aggregating to 0.6 x 0.3 x 0.2 cm. Totally submitted in one cassette. C. CERVIX BIOPSY Received in formalin is one piece of denny soft tissue measuring 0.2 x 0.2 x 0.2 cm. Totally submitted in one cassette. D. CERVIX BIOPSY Received in formalin is one piece of denny soft tissue measuring 0.4 x 0.2 x 0.2 cm. Totally submitted in one cassette. Gross examination performed at [facility], [address], [place] [address] TTN 04/29/2022 9:25 PM [facility] Performing Lab Diagnostic interpretation performed at [facility], [address] [place] [address] CLIA# [id number] Tree Surgeon Helper: Micheal Steven M.D. [facility] HCG QUAL UR B/Oon 04-29-2022 status Negative neg - pos [facility] Quality Check Yes [facility] Flexible sigmoidoscopy study on 04-08-2022 [facility] Patient Name: Doug Flanagan Procedure Date: 04/08/2022 12:48 PM Date of : 1990 Admit Type: Outpatient Age: 31 Room: [place] [address] Gender: Female Note Status: Finalized Attending MD: Angelita Ho MD Procedure: Colonoscopy Indications: Generalized abdominal pain Providers: Angelita Ho MD Patient Profile: Last Colonoscopy: none. The patient's first colonoscopy is today. Referring Physician: Becky Becerra (Referring MD) Medicines: Propofol per Anesthesia Complications: No immediate complications. Requesting Provider: Procedure: Pre-Anesthesia Assessment: - Prior to the procedure, a History and Physical was performed, and patient medications and allergies were reviewed. The patient's tolerance of previous anesthesia was also reviewed. The risks and benefits of the procedure and the sedation options and risks were discussed with the patient. All questions were answered, and informed consent was obtained. Prior Anticoagulants: The patient has taken no anticoagulant or antiplatelet agents. ASA Grade Assessment: III - A patient with severe systemic disease. After reviewing the risks and benefits, the patient was deemed in satisfactory condition to undergo the procedure. After I obtained informed consent, the scope was passed under direct vision. Throughout the procedure, the patient's blood pressure, pulse, and oxygen saturations were monitored continuously. The Colonoscope was introduced through the anus and advanced to the cecum, identified by appendiceal orifice and ileocecal valve. I was present and participated during the entire procedure, including non-brennan portions, and during the administration and monitoring of Moderate Sedation. The colonoscopy was performed without difficulty. The patient tolerated the procedure well. The quality of the bowel preparation was good. The ileocecal valve, appendiceal orifice, and rectum were photographed. Moderate Sedation: MAC anesthesia was administered by the anesthesia team. Findings: The terminal ileum appeared normal. The colon (entire examined portion) appeared normal. Impression: - The examined portion of the ileum was normal. - The entire examined colon is normal. - No specimens collected. Recommendation: - Patient has a contact number available for emergencies. The signs and symptoms of potential delayed complications were discussed with the patient. Return to normal activities tomorrow. Written discharge instructions were provided to the patient. - Resume previous diet. - Continue present medications. - No repeat colonoscopy due to age. - Return to GI clinic as previously scheduled. - The patient is not currently taking anticoagulant or antiplatelet agents. Procedure Code(s): --- Professional --- 51106, Colonoscopy, flexible; diagnostic, including collection of specimen(s) by brushing or washing, when performed (separate procedure) CPT copyright 2020 [employer]. All rights reserved. The codes documented in this report are preliminary and upon stretching machine tender frame review may be revised to meet current compliance requirements. Attending Participation: I personally performed the entire procedure. Scope In: 1:01:44 PM Scope Out: 1:13:50 PM MD Angelita Marie MD 04/08/2022 1:24:48 PM This report has been signed electronically by Angelita Ho MD Number of Addenda: 0 Note Initiated On: 04/08/2022 12:48 PM Estimated Blood Loss: Estimated blood loss: none. PROVATION [facility] Radiology Study observation (narrative) [facility] XR ABDOMEN 2V ROUTINE SUPINE W UPRIGHT/DECUB/CTLon 04-01-2022 [facility] XR Abdomen Supine and Uprigh ton 04-01-2022 IMPRESSION: 1. Nonobstructive bowel gas pattern. 2. Large stool burden. Hosiery Mater: SELENA Transcribe Date/Time: Apr 01 2022 10:32A Dictated by : ROOSEVELT GREENWOOD MD This examination was interpreted and the report reviewed and electronically signed by: ROOSEVELT GREENWOOD MD on Apr 01 2022 10:32AM [facility] DIVISION OF RADIOLOGY * * *Final Report* * * DATE OF EXAM: Apr 01 2022 10:28AM WOX [id number] - XR ABD 2V SUPINE W UPR/DECUB/CTL / PROCEDURE REASON: multiple diagnoses * * * * Physician Interpretation * * * * TITLE: XR ABD 2V SUPINE W UPR/DECUB/CTL CLINICAL INDICATION: Constipation. Pain. TECHNIQUE: Supine and upright frontal radiographs of the abdomen COMPARISON: None FINDINGS: Nonobstructive bowel gas pattern. Large stool burden scattered throughout the colon. No gross pneumoperitoneum. Intrauterine device present in the pelvis. DIVISION OF RADIOLOGY Provider, Samanta Evan Terry - 04/01/2022 * * *Final Report* * * DATE OF EXAM: Apr 01 2022 10:28AM WOX [id number] - XR ABD 2V SUPINE W UPR/DECUB/CTL / PROCEDURE REASON: multiple diagnoses * * * * Physician Interpretation * * * * TITLE: XR ABD 2V SUPINE W UPR/DECUB/CTL CLINICAL INDICATION: Constipation. Pain. TECHNIQUE: Supine and upright frontal radiographs of the abdomen COMPARISON: None FINDINGS: Nonobstructive bowel gas pattern. Large stool burden scattered throughout the colon. No gross pneumoperitoneum. Intrauterine device present in the pelvis. IMPRESSION IMPRESSION: 1. Nonobstructive bowel gas pattern. 2. Large stool burden. [facility] Transcribe Date/Time: Apr 01 2022 10:32A Dictated by : ROOSEVELT GREENWOOD MD This examination was interpreted and the report reviewed and electronically signed by: ROOSEVELT GREENWOOD MD on Apr 01 2022 10:32AM EST [facility] Radiology Study observation (narrative) [facility] XR Abdomen Supine and Uprigh tOrdered By: [facility] Provider on 04-01-2022 [facility] Absolute lymphocyte countOrd ered By: Dr. Priest on 03-27-2022 Lymphocytes Auto (Unsp spec) [#/Vol] 1.43 10*3/uL 0.83-4.51 [facility] Basophil percentageOrdered B y: Dr. Priest on 03-27-2022 Basophils/100 WBC (Bld) 0.6 % 0-1 [facility] Bilirubin [Mass/Vol] 0.30 mg/dL 0.20-1.00 [facility] Comment on above: For patients on eltr ombopag therapy, use of Dimension [place] TBIL is not recommended. Chloride [Moles/Vol] 110 mmol/L 98-107 [facility] Eosinophils/100 WBC (Bld) 2.2 % 0-5 [facility] Glucose [Mass/Vol] 95 mg/dL 74-106 [facility] Neutrophils (Bld) [#/Vol] 4.2 10*3/uL 2.0-7.7 [facility] Neutrophils/100 WBC (Bld) 67.3 % 47-70 [facility] Potassium [Moles/Vol] 3.5 mmol/L 3.5-5.1 [facility] Protein [Mass/Vol] 7.2 g/dL 6.4-8.2 [facility] Sodium [Moles/Vol] 139 mmol/L 136-145 [facility] WBC (Bld) [#/Vol] 6.3 10*3/uL 4.4-11.0 [facility] Basophil percentage 0-5 SEEN /hpf 0-5 [facility] Beta hCG serum qualOrdered B y: Dr. Priest on 03-27-2022 Beta HCG ( test) Ql Negative [facility] Bilirubin Test strip Ql (U)O rdered By: Dr. Priest on 03-27-2022 Bilirubin Ql (U) 3 mg/dL Negative [facility] Comment on above: COLOR OF URINE MAY A FFECT DIPSTICK RESULTS. Blood erythrocytes count (nu mber/volume)Ordered By: Dr. Priest on 03-27-2022 RBC (Bld) [#/Vol] 4.76 10*6/uL 4.2-5.4 [facility] Blood hemoglobin measurement (mass/volume)Ordered By: Dr. Priest on 03-27-2022 Hemoglobin (Bld) [Mass/Vol] 13.2 g/dL 12.0-15.0 [facility] Blood lymphocytes/100 leukoc ytesOrdered By: Dr. Priest on 03-27-2022 Lymphocytes/100 WBC (Bld) 22.8 % 19-41 [facility] Blood monocytes/100 leukocyt esOrdered By: Dr. Priest on 03-27-2022 Monocytes/100 WBC (Bld) 6.9 % 0-10 [facility] Blood platelet mean volumeOr dered By: Dr. Priest on 03-27-2022 Platelet mean volume (Bld) [Entitic vol] 9.8 fL 6.2-12.0 [facility] Determination of erythrocyte mean corpuscular volume (MCV)Ordered By: Dr. Priest on 03-27-2022 MCV (RBC) [Entitic vol] 82.8 fL 81-99 [facility] Hematocrit Auto (Bld) [Volum e fraction]Ordered By: Dr. Priest on 03-27-2022 Hematocrit (Bld) [Volume fraction] 39.4 % 37-47 [facility] Ketones Test strip Ql (U)Ord ered By: Dr. Priest on 03-27-2022 Ketones Ql (U) 5 mg/dl Negative [facility] Laboratory - Chemistry and C hemistry - challengeOrdered By: Dr. Priest on 03-27-2022 ALP [Catalytic activity/Vol] 78 U/L 45-117 [facility] ALT [Catalytic activity/Vol] 23 U/L 13-56 [facility] CO2 [Moles/Vol] 22.0 mmol/L 21.0-32.0 [facility] Globulin (S) [Mass/Vol] 3.4 g/dL 2.2-4.2 [facility] Lipase [Catalytic activity/Vol] 286 U/L 73-393 [facility] Urea nitrogen/Creatinine [Mass ratio] 20.7 mg/mg 10-20 [facility] Laboratory - Hematology and Cell countsOrdered By: Dr. Priest on 03-27-2022 Erythrocyte distribution width (RBC) [Entitic vol] 41.1 fL 35.1-43.9 [facility] Erythrocyte distribution width (RBC) [Ratio] 13.6 % 11.6-14.6 [facility] Immature granulocytes/100 WBC (Bld) 0.200 % 0.0-0.9 [facility] Comment on above: IG% - Immature Granu locytes (promyelocytes, myelocytes and metamyelocytes) > 1% indicates that a LEFT SHIFT is Present. MCH (RBC) [Entitic mass] 27.7 pg 27.0-32.0 [facility] Nucleated RBC/100 WBC (Bld) [Ratio] 0 % 0-5 [facility] MCHC Auto (RBC) [Mass/Vol]Or dered By: Dr. Priest on 03-27-2022 MCHC (RBC) [Mass/Vol] 33.5 g/dL 32-36 [facility] Mucus LM Ql (Urine sed)Order ed By: Dr. Priest on 03-27-2022 Mucus Ql (Urine sed) 0 SEEN /hpf [facility] Nitrite Test strip Ql (U)Ord ered By: Dr. Priest on 03-27-2022 Nitrite Ql (U) Negative Negative [facility] No Panel InformationOrdered By: Dr. Priest on 03-27-2022 Estimated Creatinine Clearance Calc 87.90 ml/min [facility] Estimated GFR (MDRD) Amer 119 mL/min >60 [facility] Comment on above: GFR Calc Estimated GFR (MDRD) Non-Af Amer 98 mL/min >60 [facility] Comment on above: Non- GFR Calc Platelets bldOrdered By: Dr. Priest on 03-27-2022 Platelets (Bld) [#/Vol] 266 10*3/uL 150-450 [facility] Protein Test strip Ql (U)Ord ered By: Dr. Priest on 03-27-2022 Protein Ql (U) 30 mg/dl Negative [facility] Serum or plasma albumin traci urement (mass/volume)Ordered By: Dr. Priest on 03-27-2022 Albumin [Mass/Vol] 3.8 g/dL 3.2-5.0 [facility] Serum or plasma albumin/glob ulin mass ratioOrdered By: Dr. Priest on 03-27-2022 Albumin/Globulin [Mass ratio] 1.1 {ratio} 0.9-2.4 [facility] Serum or plasma calcium traci urement (mass/volume)Ordered By: Dr. Priest on 03-27-2022 Calcium [Mass/Vol] 8.7 mg/dL 8.5-10.1 [facility] Serum or plasma creatinine m easurement (mass/volume)Ordered By: Dr. Priest on 03-27-2022 Creatinine [Mass/Vol] 0.72 mg/dL 0.55-1.02 [facility] Comment on above: The validity of the calculated GFR & GFRAA in patients over 70 years has not been determined. Clinical correlation is essential. Serum or plasma urea nitroge n measurement (mass/volume)Ordered By: Dr. Priest on 03-27-2022 Urea nitrogen [Mass/Vol] 15 mg/dL 7-18 [facility] Squamous epithelial cells de tection in urine sediment by light microscopyOrdered By: Dr. Priest on 03-27-2022 Epithelial cells.squamous LM Ql (Urine sed) 10-25 SEEN /hpf 5-10 [facility] Thin prep Papanicolaou smear with manual screeningOrdered By: Dr. Priest on 03-27-2022 Thin prep Papanicolaou smear with manual screening 14 U/L 15-37 [facility] Thin prep Papanicolaou smear with manual screening 7 5-15 [facility] Urine blood detectionOrdered By: Dr. Priest on 03-27-2022 RBC Ql (U) 50 /ul Negative [facility] RBC Ql (U) 0 SEEN /hpf 0-5 [facility] Urine clarityOrdered By: Dr. rPiest on 03-27-2022 Clarity (U) Sl. Cloudy Clear [facility] Urine color determinationOrd ered By: Dr. Priest on 03-27-2022 Color (U) Yellow Yellow [facility] Urine glucose detectionOrder ed By: Dr. Priest on 03-27-2022 Glucose Ql (U) Normal mg/dl Normal [facility] Urine leukocyte esterase det ection by dipstickOrdered By: Dr. Priest on 03-27-2022 Leukocyte esterase Test strip Ql (U) 100 /ul Negative [facility] Urine pHOrdered By: Dr. Ellie wharton on 03-27-2022 pH (U) 6.0 [pH] 5.0 - 8.0 [facility] Urine sediment bacteria coun t by microscopy (number/high power field)Ordered By: Dr. Priest on 03-27-2022 Bacteria LM.HPF (Urine sed) [#/Area] 1 /[HPF] None Seen [facility] Urine specific gravity measu rementOrdered By: Dr. Priest on 03-27-2022 Specific gravity (U) [Rel density] 1.020 1.002-1.03 0 [facility] Urobilinogen Auto test strip Ql (U)Ordered By: Dr. Priest on 03-27-2022 Urobilinogen Ql (U) 1 mg/dl Normal [facility] Absolute lymphocyte countOrd ered By: Dr. Lewis on 02-05-2022 Lymphocytes Auto (Unsp spec) [#/Vol] 2.08 10*3/uL 0.83-4.51 [facility] Basophil percentageOrdered B y: Dr. Lewis on 02-05-2022 Basophil percentage 0 SEEN /hpf 0-5 [facility] Basophils/100 WBC (Bld) 0.4 % 0-1 [facility] Bilirubin [Mass/Vol] 0.20 mg/dL 0.20-1.00 [facility] Comment on above: For patients on eltr ombopag therapy, use of Dimension [place] TBIL is not recommended. Chloride [Moles/Vol] 110 mmol/L 98-107 [facility] Eosinophils/100 WBC (Bld) 1.4 % 0-5 [facility] Glucose [Mass/Vol] 91 mg/dL 74-106 [facility] Neutrophils (Bld) [#/Vol] 6.3 10*3/uL 2.0-7.7 [facility] Neutrophils/100 WBC (Bld) 69.1 % 47-70 [facility] Potassium [Moles/Vol] 3.3 mmol/L 3.5-5.1 [facility] Protein [Mass/Vol] 7.4 g/dL 6.4-8.2 [facility] Sodium [Moles/Vol] 140 mmol/L 136-145 [facility] WBC (Bld) [#/Vol] 9.1 10*3/uL 4.4-11.0 [facility] Bilirubin Test strip Ql (U)O rdered By: Dr. Lewis on 02-05-2022 Bilirubin Ql (U) Negative Negative [facility] Blood erythrocytes count (nu mber/volume)Ordered By: Dr. Lewis on 02-05-2022 RBC (Bld) [#/Vol] 4.62 10*6/uL 4.2-5.4 [facility] Blood hemoglobin measurement (mass/volume)Ordered By: Dr. Lewis on 02-05-2022 Hemoglobin (Bld) [Mass/Vol] 12.5 g/dL 12.0-15.0 [facility] Blood lymphocytes/100 leukoc ytesOrdered By: Dr. Lewis on 02-05-2022 Lymphocytes/100 WBC (Bld) 23.0 % 19-41 [facility] Blood monocytes/100 leukocyt esOrdered By: Dr. Lewis on 02-05-2022 Monocytes/100 WBC (Bld) 5.9 % 0-10 [facility] Blood platelet mean volumeOr dered By: Dr. Lewis on 02-05-2022 Platelet mean volume (Bld) [Entitic vol] 9.4 fL 6.2-12.0 [facility] Determination of erythrocyte mean corpuscular volume (MCV)Ordered By: Dr. Lewis on 02-05-2022 MCV (RBC) [Entitic vol] 83.5 fL 81-99 [facility] Hematocrit Auto (Bld) [Volum e fraction]Ordered By: Dr. Lewis on 02-05-2022 Hematocrit (Bld) [Volume fraction] 38.6 % 37-47 [facility] Ketones Test strip Ql (U)Ord ered By: Dr. Lewis on 02-05-2022 Ketones Ql (U) Negative Negative [facility] Laboratory - Chemistry and C hemistry - challengeOrdered By: Dr. Lewis on 02-05-2022 ALP [Catalytic activity/Vol] 101 U/L 45-117 [facility] ALT [Catalytic activity/Vol] 16 U/L 13-56 [facility] CO2 [Moles/Vol] 22.0 mmol/L 21.0-32.0 [facility] Globulin (S) [Mass/Vol] 3.7 g/dL 2.2-4.2 [facility] Magnesium [Mass/Vol] 2.0 mg/dL 1.6-2.6 [facility] Urea nitrogen/Creatinine [Mass ratio] 16.3 mg/mg 10-20 [facility] Laboratory - Hematology and Cell countsOrdered By: Dr. Lewis on 02-05-2022 Erythrocyte distribution width (RBC) [Entitic vol] 41.1 fL 35.1-43.9 [facility] Erythrocyte distribution width (RBC) [Ratio] 13.5 % 11.6-14.6 [facility] Immature granulocytes/100 WBC (Bld) 0.200 % 0.0-0.9 [facility] Comment on above: IG% - Immature Granu locytes (promyelocytes, myelocytes and metamyelocytes) > 1% indicates that a LEFT SHIFT is Present. MCH (RBC) [Entitic mass] 27.1 pg 27.0-32.0 [facility] Nucleated RBC/100 WBC (Bld) [Ratio] 0 % 0-5 [facility] MCHC Auto (RBC) [Mass/Vol]Or dered By: Dr. Lewis on 02-05-2022 MCHC (RBC) [Mass/Vol] 32.4 g/dL 32-36 [facility] Mucus LM Ql (Urine sed)Order ed By: Dr. Lewis on 02-05-2022 Mucus Ql (Urine sed) 0 SEEN /hpf [facility] Nitrite Test strip Ql (U)Ord ered By: Dr. Lewis on 02-05-2022 Nitrite Ql (U) Negative Negative [facility] No Panel InformationOrdered By: Dr. Lewis on 02-05-2022 Estimated Creatinine Clearance Calc 93.07 ml/min [facility] Estimated GFR (MDRD) Amer 129 mL/min >60 [facility] Comment on above: GFR Calc Estimated GFR (MDRD) Non-Af Amer 107 mL/min >60 [facility] Comment on above: Non- GFR Calc Platelets bldOrdered By: Dr. Lewis on 02-05-2022 Platelets (Bld) [#/Vol] 270 10*3/uL 150-450 [facility] Protein Test strip Ql (U)Ord ered By: Dr. Lewis on 02-05-2022 Protein Ql (U) Negative Negative [facility] Serum or plasma albumin traci urement (mass/volume)Ordered By: Dr. Lewis on 02-05-2022 Albumin [Mass/Vol] 3.7 g/dL 3.2-5.0 [facility] Serum or plasma albumin/glob ulin mass ratioOrdered By: Dr. Lewis on 02-05-2022 Albumin/Globulin [Mass ratio] 1.0 {ratio} 0.9-2.4 [facility] Serum or plasma calcium traci urement (mass/volume)Ordered By: Dr. Lewis on 02-05-2022 Calcium [Mass/Vol] 9.1 mg/dL 8.5-10.1 [facility] Serum or plasma choriogonado tropin detectionOrdered By: Dr. Lewis on 02-05-2022 HCG ( test) Ql < 1 mIU/mL <4 [facility] Comment on above: hCG levels with Gest ational AgeGestational Age hCG mIU/mL (IU/L)0.2 - 1 week 5 - 501-2 weeks 50 - 5002-3 weeks 100 - 55909-6 weeks 500 - 749017-1 weeks 1000 - 862617-2 weeks 66434 - 100,0006-8 weeks 60274 - 200,0002-3 months 30471 - 100,000 Serum or plasma creatinine m easurement (mass/volume)Ordered By: Dr. Lewis on 02-05-2022 Creatinine [Mass/Vol] 0.68 mg/dL 0.55-1.02 [facility] Comment on above: The validity of the calculated GFR & GFRAA in patients over 70 years has not been determined. Clinical correlation is essential. Serum or plasma urea nitroge n measurement (mass/volume)Ordered By: Dr. Lewis on 02-05-2022 Urea nitrogen [Mass/Vol] 11 mg/dL 7-18 [facility] Squamous epithelial cells de tection in urine sediment by light microscopyOrdered By: Dr. Lewis on 02-05-2022 Epithelial cells.squamous LM Ql (Urine sed) 0-5 SEEN /hpf 5-10 [facility] Thin prep Papanicolaou smear with manual screeningOrdered By: Dr. Lewis on 02-05-2022 Thin prep Papanicolaou smear with manual screening 12 U/L 15-37 [facility] Thin prep Papanicolaou smear with manual screening 8 5-15 [facility] Urine blood detectionOrdered By: Dr. Lewis on 02-05-2022 RBC Ql (U) 10 /ul Negative [facility] RBC Ql (U) 0 SEEN /hpf 0-5 [facility] Urine clarityOrdered By: Dr. Lewis on 02-05-2022 Clarity (U) Clear Clear [facility] Urine color determinationOrd ered By: Dr. Lewis on 02-05-2022 Color (U) Yellow Yellow [facility] Urine glucose detectionOrder ed By: Dr. Lewis on 02-05-2022 Glucose Ql (U) Normal mg/dl Normal [facility] Urine leukocyte esterase det ection by dipstickOrdered By: Dr. Lewis on 02-05-2022 Leukocyte esterase Test strip Ql (U) Negative Negative [facility] Urine pHOrdered By: Dr. Brian riley on 02-05-2022 pH (U) 6.0 [pH] 5.0 - 8.0 [facility] Urine sediment bacteria coun t by microscopy (number/high power field)Ordered By: Dr. Lewis on 02-05-2022 Bacteria LM.HPF (Urine sed) [#/Area] 1 /[HPF] None Seen [facility] Urine specific gravity measu rementOrdered By: Dr. Lewis on 02-05-2022 Specific gravity (U) [Rel density] 1.015 1.002-1.03 0 [facility] Urobilinogen Auto test strip Ql (U)Ordered By: Dr. Lewis on 02-05-2022 Urobilinogen Ql (U) Normal mg/dl Normal [facility] Absolute lymphocyte counton 01-12-2022 Lymphocytes Auto (Unsp spec) [#/Vol] 2.23 10*3/uL 0.83-4.51 [facility] Work Phone: Basophil percentageon 2021 Basophils/100 WBC (Bld) 0.5 % 0-1 [facility] Work Phone: Bilirubin [Mass/Vol] 0.20 mg/dL 0.20-1.00 [facility] Work Phone: Comment on above: For patients on eltr ombopag therapy, use of Dimension [place] TBIL is not recommended. Chloride [Moles/Vol] 111 mmol/L 98-107 [facility] Work Phone: Eosinophils/100 WBC (Bld) 1.3 % 0-5 [facility] Work Phone: Glucose [Mass/Vol] 93 mg/dL 74-106 [facility] Work Phone: Neutrophils (Bld) [#/Vol] 7.3 10*3/uL 2.0-7.7 [facility] Work Phone: Neutrophils/100 WBC (Bld) 69.8 % 47-70 [facility] Work Phone: Potassium [Moles/Vol] 3.6 mmol/L 3.5-5.1 [facility] Work Phone: Protein [Mass/Vol] 7.1 g/dL 6.4-8.2 [facility] Work Phone: Sodium [Moles/Vol] 141 mmol/L 136-145 [facility] Work Phone: WBC (Bld) [#/Vol] 10.4 10*3/uL 4.4-11.0 [facility] Work Phone: Blood erythrocytes count (nu mber/volume)on 01-12-2022 RBC (Bld) [#/Vol] 4.54 10*6/uL 4.2-5.4 [facility] Work Phone: Blood hemoglobin measurement (mass/volume)on 01-12-2022 Hemoglobin (Bld) [Mass/Vol] 12.2 g/dL 12.0-15.0 [facility] Work Phone: Blood lymphocytes/100 leukoc yteson 01-12-2022 Lymphocytes/100 WBC (Bld) 21.4 % 19-41 [facility] Work Phone: Blood monocytes/100 leukocyt eson 01-12-2022 Monocytes/100 WBC (Bld) 6.7 % 0-10 [facility] Work Phone: Blood platelet mean volumeon 01-12-2022 Platelet mean volume (Bld) [Entitic vol] 9.5 fL 6.2-12.0 [facility] Work Phone: Determination of erythrocyte mean corpuscular volume (MCV)on 01-12-2022 MCV (RBC) [Entitic vol] 85.7 fL 81-99 [facility] Work Phone: Hematocrit Auto (Bld) [Volum e fraction]on 01-12-2022 Hematocrit (Bld) [Volume fraction] 38.9 % 37-47 [facility] Work Phone: Laboratory - Chemistry and C hemistry - challengeon 01-12-2022 ALP [Catalytic activity/Vol] 102 U/L 45-117 [facility] Work Phone: ALT [Catalytic activity/Vol] 24 U/L 13-56 [facility] Work Phone: CO2 [Moles/Vol] 22.0 mmol/L 21.0-32.0 [facility] Work Phone: Globulin (S) [Mass/Vol] 3.5 g/dL 2.2-4.2 [facility] Work Phone: Urea nitrogen/Creatinine [Mass ratio] 16.6 mg/mg 10-20 [facility] Work Phone: Laboratory - Hematology and Cell countson 01-12-2022 Erythrocyte distribution width (RBC) [Entitic vol] 41.2 fL 35.1-43.9 [facility] Work Phone: Erythrocyte distribution width (RBC) [Ratio] 13.2 % 11.6-14.6 [facility] Work Phone: Immature granulocytes/100 WBC (Bld) 0.300 % 0.0-0.9 [facility] Work Phone: Comment on above: IG% - Immature Granu locytes (promyelocytes, myelocytes and metamyelocytes) > 1% indicates that a LEFT SHIFT is Present. MCH (RBC) [Entitic mass] 26.9 pg 27.0-32.0 [facility] Work Phone: Nucleated RBC/100 WBC (Bld) [Ratio] 0 % 0-5 [facility] Work Phone: MCHC Auto (RBC) [Mass/Vol]on 01-12-2022 MCHC (RBC) [Mass/Vol] 31.4 g/dL 32-36 [facility] Work Phone: No Panel Informationon 01-12 Estimated Creatinine Clearance Calc 87.90 ml/min [facility] Work Phone: Estimated GFR (MDRD) Amer 119 mL/min >60 [facility] Work Phone: Comment on above: GFR Calc Estimated GFR (MDRD) Non-Af Amer 98 mL/min >60 [facility] Work Phone: Comment on above: Non- GFR Calc Troponin I High Sensitivity 3 pg/mL 3.0-54.0 [facility] Work Phone: Comment on above: Please Note: New Jackie t Units and Gender Specific Reference Ranges. For more information see Policy Stat Procedure [place] High Sensitivity Troponin (TNIH) and attachments. Platelets bldon 01-12-2022 Platelets (Bld) [#/Vol] 283 10*3/uL 150-450 [facility] Work Phone: Serum or plasma albumin traci urement (mass/volume)on 01-12-2022 Albumin [Mass/Vol] 3.6 g/dL 3.2-5.0 [facility] Work Phone: Serum or plasma albumin/glob ulin mass ratioon 01-12-2022 Albumin/Globulin [Mass ratio] 1.0 {ratio} 0.9-2.4 [facility] Work Phone: Serum or plasma calcium traci urement (mass/volume)on 01-12-2022 Calcium [Mass/Vol] 8.9 mg/dL 8.5-10.1 [facility] Work Phone: Serum or plasma creatinine m easurement (mass/volume)on 01-12-2022 Creatinine [Mass/Vol] 0.72 mg/dL 0.55-1.02 [facility] Work Phone: Comment on above: The validity of the calculated GFR & GFRAA in patients over 70 years has not been determined. Clinical correlation is essential. Serum or plasma urea nitroge n measurement (mass/volume)on 01-12-2022 Urea nitrogen [Mass/Vol] 12 mg/dL 7-18 [facility] Work Phone: Thin prep Papanicolaou smear with manual screeningon 01-12-2022 Thin prep Papanicolaou smear with manual screening 15 U/L 15-37 [facility] Work Phone: Thin prep Papanicolaou smear with manual screening 8 5-15 [facility] Work Phone: UA DIP, URINE (POC)on 2021 BILIRUBIN UA (POCT) Negative Negative [place] [facility] CLARITY UA (POCT) Clear [facility] COLOR UA (POCT) Yellow [facility] GLUCOSE UA (POCT) Negative Negative mg/dL [facility] HEMOGLOBIN/BLOOD UA (POCT) Small Abnormal Negative [facility] KETONE UA (POCT) Negative Negative mg/dL [facility] LEUKOCYTES UA (POCT) Trace Abnormal Negative [facility] ([facility]CT) Negative Negative [facility] PH UA (POCT) 6.5 4.5 - 8.0 [facility] Protein Ql (U) Negative Negative mg/dL [facility] SPECIFIC GRAVITY UA (POCT) 1.025 1.005 - 1.030 [facility] UROBILINOGEN UA (POCT) 1.0 E.U./dL Sarah l E.U./dL [facility] XR RIBS/CHEST 3V AP RIB/OBLS /CXR LEFTon 12-22-2021 [facility] XR Ribs - left Views and [address] st PAon 12-22-2021 IMPRESSION:The lungs are clear. There is no pleural effusion or pneumothorax. Right Port-A-Cath is in place with the tip at the SVC/right atrial junction. The cardiomediastinal silhouette is within limits of normal. Osseous structures are intact. There is no evidence of displaced left rib fracture. Hosiery Mater: [facility] Transcribe Date/Time: Dec 22 2021 7:54P Dictated by : ERIC OLVERA MD This examination was interpreted and the report reviewed and electronically signed by: ERIC OLVERA MD on Dec 22 2021 7:56PM [facility] DIVISION OF RADIOLOGY * * *Final Report* * * DATE OF EXAM: Dec 22 2021 7:10PM WOX 5243 - XR RIB/CHST 3V AP RIB/OBL/CHST L / PROCEDURE REASON: Rib pain * * * * Physician Interpretation * * * * EXAM:XR RIB/CHST 3V AP RIB/OBL/CHST L HISTORY: Rib pain, status post fall. COMPARISON:None DIVISION OF RADIOLOGY Provider, [facility] - 12/22/2021 * * *Final Report* * * DATE OF EXAM: Dec 22 2021 7:10PM WOX 5243 - XR RIB/CHST 3V AP RIB/OBL/CHST L / PROCEDURE REASON: Rib pain * * * * Physician Interpretation * * * * EXAM:XR RIB/CHST 3V AP RIB/OBL/CHST L HISTORY: Rib pain, status post fall. COMPARISON:None IMPRESSION IMPRESSION:The lungs are clear. There is no pleural effusion or pneumothorax. Right Port-A-Cath is in place with the tip at the SVC/right atrial junction. The cardiomediastinal silhouette is within limits of normal. Osseous structures are intact. There is no evidence of displaced left rib fracture. Hosiery Mater: PSCB Transcribe Date/Time: Dec 22 2021 7:54P Dictated by : ERIC OLVERA MD This examination was interpreted and the report reviewed and electronically signed by: ERIC OLVERA MD on Dec 22 2021 7:56PM EST [facility] Radiology Study observation (narrative) [facility] XR Ribs - left Views and [address]ma st PAOrdered By: Ccf Provider on 12-22-2021 [facility] No Panel Informationon 12-01 IMPRESSION: No radiographic evidence of acute osseous injury Hosiery Mater: oNoiseB Transcribe Date/Time: Dec 01 2021 2:35P Dictated by : ROOSEVELT GREENWOOD MD This examination was interpreted and the report reviewed and electronically signed by: ROOSEVELT GREENWOOD MD on Dec 01 2021 2:37PM EST ZZZ_DO_NOT_USE _DIVISION OF RADIOLOGY Radiology Study observation (narrative) [facility] No Panel InformationOrdered By: Ccf Provider on 12-01-2021 [facility] US DVT LOWER LTon 12-01-2021 [facility] XR Foot - left AP and Latera l and obliqueon 12-01-2021 * * *Final Report* * * DATE OF EXAM: Dec 01 2021 2:31PM WOX 5336 - XR FOOT 3V AP/LAT/OBL LT / PROCEDURE REASON: Acute pain of left lower extremity * * * * Physician Interpretation * * * * CLINICAL INDICATION: Status post fall with pain TECHNIQUE: 3 view radiographic study of the left foot and 2 view radiographic study of the left tibia/fibula COMPARISON: None FINDINGS: No acute fracture or dislocation identified. Joint spaces preserved. ZZZ_DO_NOT_USE _DIVISION OF RADIOLOGY Provider, [facility] Evan [facility] - 12/01/2021 * * *Final Report* * * DATE OF EXAM: Dec 01 2021 2:31PM WOX 5336 - XR FOOT 3V AP/LAT/OBL LT / PROCEDURE REASON: Acute pain of left lower extremity * * * * Physician Interpretation * * * * CLINICAL INDICATION: Status post fall with pain TECHNIQUE: 3 view radiographic study of the left foot and 2 view radiographic study of the left tibia/fibula COMPARISON: None FINDINGS: No acute fracture or dislocation identified. Joint spaces preserved. IMPRESSION IMPRESSION: No radiographic evidence of acute osseous injury Hosiery Mater: [facility] Transcribe Date/Time: Dec 01 2021 2:35P Dictated by : ROOSEVELT GREENWOOD MD This examination was interpreted and the report reviewed and electronically signed by: ROOSEEVLT GREENWOOD MD on Dec 01 2021 2:37PM [facility] XR Tibia and Fibula - left A P and Lateralon 12-01-2021 * * *Final Report* * * DATE OF EXAM: Dec 01 2021 2:31PM WOX 5265 - XR TIBIA FIBULA 2V AP/LAT LT / PROCEDURE REASON: Acute pain of left lower extremity * * * * Physician Interpretation * * * * CLINICAL INDICATION: Status post fall with pain TECHNIQUE: 3 view radiographic study of the left foot and 2 view radiographic study of the left tibia/fibula COMPARISON: None FINDINGS: No acute fracture or dislocation identified. Joint spaces preserved. ZZZ_DO_NOT_USE _DIVISION OF RADIOLOGY Provider, [facility] - 12/01/2021 * * *Final Report* * * DATE OF EXAM: Dec 01 2021 2:31PM WOX 5265 - XR TIBIA FIBULA 2V AP/LAT LT / PROCEDURE REASON: Acute pain of left lower extremity * * * * Physician Interpretation * * * * CLINICAL INDICATION: Status post fall with pain TECHNIQUE: 3 view radiographic study of the left foot and 2 view radiographic study of the left tibia/fibula COMPARISON: None FINDINGS: No acute fracture or dislocation identified. Joint spaces preserved. IMPRESSION IMPRESSION: No radiographic evidence of acute osseous injury Hosiery Mater: [facility] Transcribe Date/Time: Dec 01 2021 2:35P Dictated by : ROOSEVELT GREENWOOD MD This examination was interpreted and the report reviewed and electronically signed by: ROOSEVELT GREENWOOD MD on Dec 01 2021 2:37PM EST [facility] Basophil percentageon 2021 WBC (Bld) [#/Vol] 6.8 10*3/uL 4.4-11.0 [facility] Work Phone: Blood erythrocytes count (nu mber/volume)on 10-17-2021 RBC (Bld) [#/Vol] 4.25 10*6/uL 4.2-5.4 [facility] Work Phone: Blood hemoglobin measurement (mass/volume)on 10-17-2021 Hemoglobin (Bld) [Mass/Vol] 11.9 g/dL 12.0-15.0 [facility] Work Phone: Blood platelet mean volumeon 10-17-2021 Platelet mean volume (Bld) [Entitic vol] 9.3 fL 6.2-12.0 [facility] Work Phone: Determination of erythrocyte mean corpuscular volume (MCV)on 10-17-2021 MCV (RBC) [Entitic vol] 85.2 fL 81-99 [facility] Work Phone: Hematocrit Auto (Bld) [Volum e fraction]on 10-17-2021 Hematocrit (Bld) [Volume fraction] 36.2 % 37-47 [facility] Work Phone: Laboratory - Chemistry and C hemistry - challengeon 10-17-2021 HCG ( test) Ql (U) Negative [facility] Work Phone: Comment on above: Very dilute urine sp ecimens, as indicated by a low specificgravity, may not contain public service representative levels of hCG. If is still suspected, a first morning urinespecimen should be collected 48 hours later and tested. Laboratory - Hematology and Cell countson 10-17-2021 Erythrocyte distribution width (RBC) [Entitic vol] 43.1 fL 35.1-43.9 [facility] Work Phone: Erythrocyte distribution width (RBC) [Ratio] 14.0 % 11.6-14.6 [facility] Work Phone: MCH (RBC) [Entitic mass] 28.0 pg 27.0-32.0 [facility] Work Phone: MCHC Auto (RBC) [Mass/Vol]on 10-17-2021 MCHC (RBC) [Mass/Vol] 32.9 g/dL 32-36 [facility] Work Phone: Platelets bldon 10-17-2021 Platelets (Bld) [#/Vol] 311 10*3/uL 150-450 [facility] Work Phone: 24 hour urine alpha 2 globul in/total protein ratio by electrophoresis (mass fraction)on 09-16-2021 Alpha 2 globulin Elph (24H U) [Mass fraction] 10.5 % . [facility] Work Phone: 24 hour urine beta globulin/ total protein ratio by electrophoresis (mass fraction)on 09-16-2021 Beta globulin Elph (24H U) [Mass fraction] 15.9 % . [facility] Work Phone: 24 hour urine gamma globulin /total protein ratio by electrophoresis (mass fraction)on 09-16-2021 Gamma globulin Elph (24H U) [Mass fraction] 40.3 % . [facility] Work Phone: Basophil percentageon 2021 Ammonia (P) [Moles/Vol] 22.0 umol/L 11-32 [facility] Work Phone: Erythrocyte sedimentation ra ziggy 09-16-2021 ESR (Bld) [Velocity] 11 mm/h 0-30 [facility] Work Phone: Laboratory - Chemistry and C hemistry - challengeon 09-16-2021 CK [Catalytic activity/Vol] 69 U/L 26-192 [facility] Work Phone: Cobalamin (Vitamin B12) [Mass/Vol] 282 pg/mL 211-911 [facility] Work Phone: No Panel Informationon 09-16 Urine Immunofixation PEP Note Comment . [facility] Work Phone: Comment on above: Protein electrophore sis scan will follow via computer,mail, or mounter hand delivery.Performed at: [facility] [id number] Director: Nicolas Fleming PhD, Phone: [phone] Serum or plasma C reactive p rotein measurement (mass/volume)on 09-16-2021 CRP [Mass/Vol] mg/L 0.0-3.0 [facility] Work Phone: Comment on above: C-Reactive Protein ( CRP) provides useful information for thediagnosis, therapy and monitoring of inflammatory processesand associated diseases. For the evaluation of Relative Riskfor Cardiovascular Disease, a High Sensitivity CRP (HSCRP)should be ordered. Urine albumin/total protein mass ratio by electrophoresison 09-16-2021 Albumin Elph (U) [Mass fraction] 30.1 % . [facility] Work Phone: Urine alpha 1 globulin/total protein ratio by electrophoresis (mass fraction)on 09-16-2021 Alpha 1 globulin Elph (U) [Mass fraction] 3.2 % . [facility] Work Phone: Urine monoclonal protein/tot al protein mass ratio by electrophoresison 09-16-2021 Protein.monoclonal Elph (U) [Mass fraction] See comment [facility] Work Phone: Comment on above: Result: Not Observed Urine protein measurement (m ass/volume)on 09-16-2021 Protein (U) [Mass/Vol] 7.4 mg/dL Not Estab. Wo [facility] Work Phone: HCG QUAL UR B/Oon 08-20-2021 status Negative neg - pos [facility] Quality Check Yes [facility] Absolute lymphocyte counton 08-06-2021 Lymphocytes Auto (Unsp spec) [#/Vol] 1.60 10*3/uL 0.83-4.51 [facility] Work Phone: Basophil percentageon 2021 Basophils/100 WBC (Bld) 0.7 % 0-1 [facility] Work Phone: Bilirubin [Mass/Vol] 0.50 mg/dL 0.20-1.00 [facility] Work Phone: Comment on above: For patients on eltr ombopag therapy, use of Dimension [place] TBIL is not recommended. Chloride [Moles/Vol] 114 mmol/L 98-107 [facility] Work Phone: Eosinophils/100 WBC (Bld) 2.4 % 0-5 [facility] Work Phone: Glucose [Mass/Vol] 92 mg/dL 74-106 [facility] Work Phone: Neutrophils (Bld) [#/Vol] 3.2 10*3/uL 2.0-7.7 [facility] Work Phone: Neutrophils/100 WBC (Bld) 60.0 % 47-70 [facility] Work Phone: Potassium [Moles/Vol] 3.9 mmol/L 3.5-5.1 [facility] Work Phone: Protein [Mass/Vol] 7.6 g/dL 6.4-8.2 [facility] Work Phone: Sodium [Moles/Vol] 139 mmol/L 136-145 [facility] Work Phone: WBC (Bld) [#/Vol] 5.4 10*3/uL 4.4-11.0 [facility] Work Phone: Blood erythrocytes count (nu mber/volume)on 08-06-2021 RBC (Bld) [#/Vol] 4.49 10*6/uL 4.2-5.4 [facility] Work Phone: Blood hemoglobin measurement (mass/volume)on 08-06-2021 Hemoglobin (Bld) [Mass/Vol] 12.8 g/dL 12.0-15.0 [facility] Work Phone: Blood lymphocytes/100 leukoc yteson 08-06-2021 Lymphocytes/100 WBC (Bld) 29.8 % 19-41 [facility] Work Phone: Blood monocytes/100 leukocyt eson 08-06-2021 Monocytes/100 WBC (Bld) 6.9 % 0-10 [facility] Work Phone: Blood platelet mean volumeon 08-06-2021 Platelet mean volume (Bld) [Entitic vol] 9.3 fL 6.2-12.0 [facility] Work Phone: Determination of erythrocyte mean corpuscular volume (MCV)on 08-06-2021 MCV (RBC) [Entitic vol] 85.7 fL 81-99 [facility] Work Phone: Hematocrit Auto (Bld) [Volum e fraction]on 08-06-2021 Hematocrit (Bld) [Volume fraction] 38.5 % 37-47 [facility] Work Phone: Laboratory - Chemistry and C hemistry - challengeon 08-06-2021 ALP [Catalytic activity/Vol] 111 U/L 45-117 [facility] Work Phone: ALT [Catalytic activity/Vol] 26 U/L 13-56 [facility] Work Phone: CO2 [Moles/Vol] 22.0 mmol/L 21.0-32.0 [facility] Work Phone: Globulin (S) [Mass/Vol] 3.7 g/dL 2.2-4.2 [facility] Work Phone: Urea nitrogen/Creatinine [Mass ratio] 13.8 mg/mg 10-20 [facility] Work Phone: Laboratory - Hematology and Cell countson 08-06-2021 Erythrocyte distribution width (RBC) [Entitic vol] 43.3 fL 35.1-43.9 [facility] Work Phone: Erythrocyte distribution width (RBC) [Ratio] 13.8 % 11.6-14.6 [facility] Work Phone: Immature granulocytes/100 WBC (Bld) 0.200 % 0.0-0.9 [facility] Work Phone: Comment on above: IG% - Immature Granu locytes (promyelocytes, myelocytes and metamyelocytes) > 1% indicates that a LEFT SHIFT is Present. MCH (RBC) [Entitic mass] 28.5 pg 27.0-32.0 [facility] Work Phone: Nucleated RBC/100 WBC (Bld) [Ratio] 0 % 0-5 [facility] Work Phone: MCHC Auto (RBC) [Mass/Vol]on 08-06-2021 MCHC (RBC) [Mass/Vol] 33.2 g/dL 32-36 [facility] Work Phone: No Panel Informationon 08-06 Estimated GFR (MDRD) Amer 97 mL/min >60 [facility] Work Phone: Comment on above: GFR Calc Estimated GFR (MDRD) Non-Af Amer 80 mL/min >60 [facility] Work Phone: Comment on above: Non- GFR Calc Platelets bldon 08-06-2021 Platelets (Bld) [#/Vol] 297 10*3/uL 150-450 [facility] Work Phone: Serum or plasma albumin trcai urement (mass/volume)on 08-06-2021 Albumin [Mass/Vol] 3.9 g/dL 3.2-5.0 [facility] Work Phone: Serum or plasma albumin/glob ulin mass ratioon 08-06-2021 Albumin/Globulin [Mass ratio] 1.1 {ratio} 0.9-2.4 [facility] Work Phone: Serum or plasma calcium traci urement (mass/volume)on 08-06-2021 Calcium [Mass/Vol] 9.1 mg/dL 8.5-10.1 [facility] Work Phone: Serum or plasma creatinine m easurement (mass/volume)on 08-06-2021 Creatinine [Mass/Vol] 0.87 mg/dL 0.55-1.02 [facility] Work Phone: Comment on above: The validity of the calculated GFR & GFRAA in patients over 70 years has not been determined. Clinical correlation is essential. Serum or plasma urea nitroge n measurement (mass/volume)on 08-06-2021 Urea nitrogen [Mass/Vol] 12 mg/dL 7-18 [facility] Work Phone: Thin prep Papanicolaou smear with manual screeningon 08-06-2021 Thin prep Papanicolaou smear with manual screening 21 U/L 15-37 [facility] Work Phone: Thin prep Papanicolaou smear with manual screening 3 5-15 [facility] Work Phone: No Panel Informationon 06-18 Total Complement (CH50) < 16 U/mL [facility] Work Phone: Comment on above: Age Male Female 1 - 30 days Not Estab. Not Estab. 31 days - 6 months >32 >20 7 months - 17 years >39 >39 >17 years >41 >41 NOTE: The adult (>17 years) reference interval range is used to flag abnormals on this report. If the patient is 17 years old or younger, use the table above to determine out of range values.Performed at: [address] [id number] Director: Nicolas Fleming PhD, Phone: [phone] Absolute lymphocyte counton 06-13-2021 Lymphocytes Auto (Unsp spec) [#/Vol] 1.76 10*3/uL 0.83-4.51 [facility] Work Phone: Basophil percentageon 2021 Basophil percentage 10-25 SEEN /hpf [facility] Work Phone: Basophils/100 WBC (Bld) 0.5 % 0-1 [facility] Work Phone: Eosinophils/100 WBC (Bld) 1.4 % 0-5 [facility] Work Phone: Neutrophils (Bld) [#/Vol] 5.3 10*3/uL 2.0-7.7 [facility] Work Phone: Neutrophils/100 WBC (Bld) 67.2 % 47-70 [facility] Work Phone: WBC (Bld) [#/Vol] 7.9 10*3/uL 4.4-11.0 [facility] Work Phone: Bilirubin Test strip Ql (U)o n 06-13-2021 Bilirubin Ql (U) Negative Negative [facility] Work Phone: Blood erythrocytes count (nu mber/volume)on 06-13-2021 RBC (Bld) [#/Vol] 4.64 10*6/uL 4.2-5.4 [facility] Work Phone: Blood hemoglobin measurement (mass/volume)on 06-13-2021 Hemoglobin (Bld) [Mass/Vol] 13.1 g/dL 12.0-15.0 [facility] Work Phone: Blood lymphocytes/100 leukoc yteson 06-13-2021 Lymphocytes/100 WBC (Bld) 22.2 % 19-41 [facility] Work Phone: Blood monocytes/100 leukocyt eson 06-13-2021 Monocytes/100 WBC (Bld) 8.4 % 0-10 [facility] Work Phone: Blood platelet mean volumeon 06-13-2021 Platelet mean volume (Bld) [Entitic vol] 9.7 fL 6.2-12.0 [facility] Work Phone: Culture, urineon 06-13-2021 Bacteria identified Cx Nom (U) Positive [facility] Work Phone: Determination of erythrocyte mean corpuscular volume (MCV)on 06-13-2021 MCV (RBC) [Entitic vol] 85.1 fL 81-99 [facility] Work Phone: Hematocrit Auto (Bld) [Volum e fraction]on 06-13-2021 Hematocrit (Bld) [Volume fraction] 39.5 % 37-47 [facility] Work Phone: Ketones Test strip Ql (U)on 06-13-2021 Ketones Ql (U) Negative Negative [facility] Work Phone: Laboratory - Hematology and Cell countson 06-13-2021 Erythrocyte distribution width (RBC) [Entitic vol] 44.9 fL 35.1-43.9 [facility] Work Phone: Erythrocyte distribution width (RBC) [Ratio] 14.5 % 11.6-14.6 [facility] Work Phone: Immature granulocytes/100 WBC (Bld) 0.300 % 0.0-0.9 [facility] Work Phone: Comment on above: IG% - Immature Granu locytes (promyelocytes, myelocytes and metamyelocytes) > 1% indicates that a LEFT SHIFT is Present. MCH (RBC) [Entitic mass] 28.2 pg 27.0-32.0 [facility] Work Phone: Nucleated RBC/100 WBC (Bld) [Ratio] 0 % 0-5 [facility] Work Phone: MCHC Auto (RBC) [Mass/Vol]on 06-13-2021 MCHC (RBC) [Mass/Vol] 33.2 g/dL 32-36 [facility] Work Phone: Mucus LM Ql (Urine sed)on Mucus Ql (Urine sed) 0 SEEN /hpf [facility] Work Phone: Nitrite Test strip Ql (U)on 06-13-2021 Nitrite Ql (U) Negative Negative [facility] Work Phone: Platelets bldon 06-13-2021 Platelets (Bld) [#/Vol] 283 10*3/uL 150-450 [facility] Work Phone: Protein Test strip Ql (U)on 06-13-2021 Protein Ql (U) 15 mg/dl Negative [facility] Work Phone: Squamous epithelial cells de tection in urine sediment by light microscopyon 06-13-2021 Epithelial cells.squamous LM Ql (Urine sed) 0-5 SEEN /hpf [facility] Work Phone: Urine blood detectionon 06-03 RBC Ql (U) 250 /ul Negative [facility] Work Phone: RBC Ql (U) 10-25 SEEN /hpf [facility] Work Phone: Urine clarityon 06-13-2021 Clarity (U) Sl. Cloudy Clear [facility] Work Phone: Urine color determinationon 06-13-2021 Color (U) Yellow Yellow [facility] Work Phone: Urine glucose detectionon Glucose Ql (U) Normal mg/dl Normal [facility] Work Phone: Urine leukocyte esterase det ection by dipstickon 06-13-2021 Leukocyte esterase Test strip Ql (U) 100 /ul Negative [facility] Work Phone: Urine pHon 06-13-2021 pH (U) 7.0 [pH] [facility] Work Phone: Urine sediment bacteria coun t by microscopy (number/high power field)on 06-13-2021 Bacteria LM.HPF (Urine sed) [#/Area] 0 /[HPF] None Seen [facility] Work Phone: Urine specific gravity measu rementon 06-13-2021 Specific gravity (U) [Rel density] 1.010 [facility] Work Phone: Urobilinogen Auto test strip Ql (U)on 06-13-2021 Urobilinogen Ql (U) Normal mg/dl Normal [facility] Work Phone: Basophil percentageon 2021 Bilirubin [Mass/Vol] 0.30 mg/dL 0.20-1.00 [facility] Work Phone: Comment on above: For patients on eltr ombopag therapy, use of Dimension [place] TBIL is not recommended. Chloride [Moles/Vol] 115 mmol/L 98-107 [facility] Work Phone: Glucose [Mass/Vol] 92 mg/dL 74-106 [facility] Work Phone: Potassium [Moles/Vol] 4.0 mmol/L 3.5-5.1 [facility] Work Phone: Protein [Mass/Vol] 7.4 g/dL 6.4-8.2 [facility] Work Phone: Sodium [Moles/Vol] 141 mmol/L 136-145 [facility] Work Phone: Laboratory - Chemistry and C hemistry - challengeon 05-23-2021 ALP [Catalytic activity/Vol] 110 U/L 45-117 [facility] Work Phone: ALT [Catalytic activity/Vol] 28 U/L 13-56 [facility] Work Phone: CK [Catalytic activity/Vol] 62 U/L 26-192 [facility] Work Phone: CO2 [Moles/Vol] 22.0 mmol/L 21.0-32.0 [facility] Work Phone: Globulin (S) [Mass/Vol] 3.5 g/dL 2.2-4.2 [facility] Work Phone: Urea nitrogen/Creatinine [Mass ratio] 12.7 mg/mg 10-20 [facility] Work Phone: No Panel Informationon 05-23 Estimated GFR (MDRD) Amer 97 mL/min >60 [facility] Work Phone: Comment on above: GFR Calc Estimated GFR (MDRD) Non-Af Amer 80 mL/min >60 [facility] Work Phone: Comment on above: Non- GFR Calc Serum or plasma albumin traci urement (mass/volume)on 05-23-2021 Albumin [Mass/Vol] 3.9 g/dL 3.2-5.0 [facility] Work Phone: Serum or plasma albumin/glob ulin mass ratioon 05-23-2021 Albumin/Globulin [Mass ratio] 1.1 {ratio} 0.9-2.4 [facility] Work Phone: Serum or plasma calcium traci urement (mass/volume)on 05-23-2021 Calcium [Mass/Vol] 9.1 mg/dL 8.5-10.1 [facility] Work Phone: Serum or plasma creatinine m easurement (mass/volume)on 05-23-2021 Creatinine [Mass/Vol] 0.87 mg/dL 0.55-1.02 [facility] Work Phone: Comment on above: The validity of the calculated GFR & GFRAA in patients over 70 years has not been determined. Clinical correlation is essential. Serum or plasma urea nitroge n measurement (mass/volume)on 05-23-2021 Urea nitrogen [Mass/Vol] 11 mg/dL 7-18 [facility] Work Phone: Thin prep Papanicolaou smear with manual screeningon 05-23-2021 Thin prep Papanicolaou smear with manual screening 15 U/L 15-37 [facility] Work Phone: Thin prep Papanicolaou smear with manual screening 4 5-15 [facility] Work Phone: CALCIFEDIOL ([id number])Ordered B y: Position Classifier on 12-24-2020 25-hydroxyvitamin D [Mass/Vol] 12.4 ng/mL Abnormal 30.0-100.0 [facility]; [facility] Work Phone: Comment on above: Vitamin D deficiency has been defined by the [place] ofMedicine and an Endocrine Society practice guideline as alevel of serum 25-OH vitamin D less than 20 ng/mL (1,2).The Endocrine Society went on to further define vitamin Dinsufficiency as a level between 21 and 29 ng/mL (2).1. IOM ([place] of Medicine). 2010. Dietary reference intakes for calcium and D. [place]: The National Academies Press.2. Solange MF, Maximiliano [place], Earle BOURNE, et al. Evaluation, treatment, and prevention of vitamin D deficiency: an Endocrine Society clinical practice guideline. JCEM. 2010; 96(7):1911-30. PATIENT NOT FASTINGP ERFORMED BY: JORGE [facility] Medical[facility] [id number] [employer] [employer] [id number] TSH (THYROID STIMULATING HOR LOBO) ([id number])Ordered By: Position Classifier on 12-24-2020 TSH Qn 1.770 {uIU/mL} Normal 0.450-4.50 0 [facility]; [facility] Work Phone: Comment on above: PATIENT NOT FASTINGP ERFORMED BY: JORGE [facility] [id number] [employer] [id number] VITAMIN B12 AND FOLATES ([id number])Ordered By: Position Classifier on 12-24-2020 Cobalamin (Vitamin B12) [Mass/Vol] 397 pg/mL Normal [id number] [facility]; [facility] Work Phone: Comment on above: PATIENT NOT FASTINGP ERFORMED BY: JORGE [facility] [id number] [employer] [place] [id number] Folate [Mass/Vol] 3.8 ng/mL Normal [facility]; [facility] Work Phone: Comment on above: A serum folate stephon ntration of less than 3.1 ng/mL isconsidered to represent clinical deficiency. PATIENT NOT FASTINGP ERFORMED BY: JORGE [email or web address] [email or web address] [facility] [id number] POTASSIUM SERUM ([id number])Order ed By: Position Classifier on 11-12-2020 Potassium [Moles/Vol] 4.5 mmol/L Normal 3.5-5.2 [facility] prehensive Internal Medicine; [facility] Work Phone: Comment on above: PATIENT NOT FASTINGP ERFORMED BY: JORGE [employer] [employer]in [place] [id number] Basic Metabolic Panelon Calcium [Mass/Vol] 9.0 mg/dL Normal 8.4-10.4 Via6 [facility] Comment on above: Performed By: #### B MP3 #### [employer] [address] [place] [address] Glucose [Mass/Vol] 89 mg/dL Normal 70-100 [facility] Comment on above: Performed By: #### B MP3 #### [facility] [address], [place] Anion gap [Moles/Vol] 10 Normal [facility] Comment on above: Performed By: #### B MP3 #### [facility] [address], [place] CO2 [Moles/Vol] 21 mmol/L Low 22-30 [facility] Comment on above: Performed By: #### B MP3 #### [facility] [address], [place] Creatinine [Mass/Vol] 0.56 mg/dL Normal 0.52-1.25 [facility] Comment on above: Performed By: #### B MP3 #### [facility] [address], [place] GFR/1.73 sq M predicted among blacks MDRD (S/P/Bld) [Vol rate/Area] mL/min/{1.73_m2} Normal >60 [facility] Comment on above: Performed By: #### B MP3 #### [facility] [address], [place] GFR/1.73 sq M predicted among non-blacks MDRD (S/P/Bld) [Vol rate/Area] mL/min/{1.73_m2} Normal >60 [facility] Comment on above: Result Comment: KDIG O guidelines provide the following GFR categories: Stage GFR(ml/min/1.73 m2) Terms G1 >=90 Normal or high G2 60-89 Mildly decreased* G3a 45-59 Mildly to moderately decreased G3b 30-44 Moderately to severely decreased G4 15-29 Severely decreased G5 <15 Kidney failure *Relative to young adult level. In the absence of evidence of kidney damage, neither GFR category G1 nor G2 fulfill the criteria for CKD. The CKD-EPI equation is validated in individuals 18 years of age and older. Currently the best equation for estimating glomerular filtration rate (GFR) from serum creatinine in children is the Bedside Hernandez equation. It is less accurate in patients with extremes of muscle mass, restriction of dietary protein, ingestion of creatine, extra-renal metabolism of creatinine, or treatment with medications that affect renal tubular creatinine secretion. Performed By: #### B MP3 #### [facility] [address], [place] Urea nitrogen [Mass/Vol] 13 mg/dL Normal 7-20 [facility] Comment on above: Performed By: #### B MP3 #### [facility] [address], [place] Chloride [Moles/Vol] 107 mmol/L Normal 98-107 [facility] Comment on above: Performed By: #### B MP3 #### [facility] [address], [place] Potassium [Moles/Vol] 3.3 mmol/L Low 3.5-5.1 [facility] Comment on above: Performed By: #### B MP3 #### [facility] [address], [place] Sodium [Moles/Vol] 138 mmol/L Normal 135-145 [facility] Comment on above: Performed By: #### B MP3 #### [facility] [address], [place] Anion gap [Moles/Vol] 10 mmol/L [place], [place] Calcium [Mass/Vol] 9.0 mg/dL 8.4 - 10. 4 mg/dL [place] Chloride [Moles/Vol] 107 mmol/L 98 - 10 7 mmol/L [place] CO2 [Moles/Vol] 21 mmol/L Low 22 - 30 mmol/L [place] Creatinine [Mass/Vol] 0.56 mg/dL 0.52 - 1.25 mg/dL [place] EGFR IF NonAfrican Cymraes >90.0 >60 mL/min [place] Comment on above: KDIGO guidelines pro vide the following GFR categories: Stage GFR(ml/min/1.73 m2) Terms G1 >=90 Normal or high G2 60-89 Mildly decreased* G3a 45-59 Mildly to moderately decreased G3b 30-44 Moderately to severely decreased G4 15-29 Severely decreased G5 <15 Kidney failure *Relative to young adult level. In the absence of evidence of kidney damage, neither GFR category G1 nor G2 fulfill the criteria for CKD. The CKD-EPI equation is validated in individuals 18 years of age and older. Currently the best equation for estimating glomerular filtration rate (GFR) from serum creatinine in children is the Bedside Hernandez equation. It is less accurate in patients with extremes of muscle mass, restriction of dietary protein, ingestion of creatine, extra-renal metabolism of creatinine, or treatment with medications that affect renal tubular creatinine secretion. GFR/1.73 sq M predicted among blacks MDRD (S/P/Bld) [Vol rate/Area] mL/min/{1.73_m2} >60 mL/min [place] Glucose [Mass/Vol] 89 mg/dL 70 - 100 mg/dL [place] Interpretation and review of laboratory results Abnormal [place] Potassium [Moles/Vol] 3.3 mmol/L Low 3.5 - 5.1 mmol/L [place] Sodium [Moles/Vol] 138 mmol/L 135 - 145 mmol/L [place] Urea nitrogen [Mass/Vol] 13 mg/dL 7 - 20 mg/dL [place] Test Performed by [address] [address] [place], [place] CBCon 10-07-2019 Erythrocyte distribution width (RBC) [Ratio] 13.0 % 11.5 - 14.5 % [place] Hematocrit (Bld) [Volume fraction] 39.8 % 35 - 47 % [place] Hemoglobin (Bld) [Mass/Vol] 13.0 g/dL 11.7 - 16 g/dL [place] Interpretation and review of laboratory results Abnormal [place] MCH (RBC) [Entitic mass] 28.4 pg 26 - 34 pg [place] MCHC (RBC) [Mass/Vol] 32.7 % 32 - 36 % [place] MCV (RBC) [Entitic vol] 86.8 fL 79 - 98 fL [place] Platelet mean volume (Bld) [Entitic vol] 8.3 fL 7.4 - 10.4 fL [place] Platelets (Bld) [#/Vol] 37 10*3/uL Low 140 - 440 10*3/uL [place] RBC (Bld) [#/Vol] 4.59 10*6/uL 3.8 - 5.2 10*6/uL [place] WBC (Bld) [#/Vol] 11.4 10*3/uL High 3.6 - 10.7 10*3/uL [place] Test Performed by [facility], [address] [place] [address] [place], [place] Comp Panel with Mg Reflexon 10-07-2019 ALT [Catalytic activity/Vol] 12 U/L Normal 0-34 [facility] Comment on above: Result Comment: The ALT test is performed by an updated assay method. Please note that the reference intervals have been changed and are now sex specific. Performed By: #### H EMONithin CMP3M, MG3 #### [facility] [address], [place] Calcium [Mass/Vol] 9.4 mg/dL Normal 8.4-10.4 [facility] Comment on above: Performed By: #### H EMONithin CMP3M, MG3 #### [address] [address] Glucose [Mass/Vol] 95 mg/dL Normal 70-100 [facility] Comment on above: Performed By: #### H EMONithin CMP3M, MG3 #### [address] [address] ALP [Catalytic activity/Vol] 81 U/L Normal 38-126 [facility] Comment on above: Performed By: #### H EMONithin CMP3M, MG3 #### [address] [address] Anion gap [Moles/Vol] 12 Normal [facility] Comment on above: Performed By: #### H EMONithin CMP3M, MG3 #### [address] AST [Catalytic activity/Vol] 23 U/L Normal 15-46 [facility] Comment on above: Performed By: #### H CYNTHIA BASS3M, MG3 #### [facility] [address], [place] Bilirubin [Mass/Vol] 0.5 mg/dL Normal 0.2-1.3 [facility] Comment on above: Performed By: #### H CYNTHIA BASS3M, MG3 #### [facility] [address], [place] CO2 [Moles/Vol] 19 mmol/L Low 22-30 [facility] Comment on above: Performed By: #### H CYNTHIA BASS3M, MG3 #### [place] [address], [place] Creatinine [Mass/Vol] 0.48 mg/dL Low 0.52-1.25 [facility] Comment on above: Performed By: #### H SHELIA CMP3M, MG3 #### [facility] [address], [place] GFR/1.73 sq M predicted among blacks MDRD (S/P/Bld) [Vol rate/Area] mL/min/{1.73_m2} Normal >60 [facility] Comment on above: Performed By: #### H SHELIA CMP3M, MG3 #### [place] [address], [place] GFR/1.73 sq M predicted among non-blacks MDRD (S/P/Bld) [Vol rate/Area] mL/min/{1.73_m2} Normal >60 [facility] Comment on above: Result Comment: KDIG O guidelines provide the following GFR categories: Stage GFR(ml/min/1.73 m2) Terms G1 >=90 Normal or high G2 60-89 Mildly decreased* G3a 45-59 Mildly to moderately decreased G3b 30-44 Moderately to severely decreased G4 15-29 Severely decreased G5 <15 Kidney failure *Relative to young adult level. In the absence of evidence of kidney damage, neither GFR category G1 nor G2 fulfill the criteria for CKD. The CKD-EPI equation is validated in individuals 18 years of age and older. Currently the best equation for estimating glomerular filtration rate (GFR) from serum creatinine in children is the Bedside Hernandez equation. It is less accurate in patients with extremes of muscle mass, restriction of dietary protein, ingestion of creatine, extra-renal metabolism of creatinine, or treatment with medications that affect renal tubular creatinine secretion. Performed By: #### H CYNTHIA BASS3Timo, MG3 #### [place] [address], [place] Protein [Mass/Vol] 7.5 g/dL Normal 6.3-8.2 [facility] Comment on above: Performed By: #### H CYNTHIA BASS3Timo MG3 #### [place] [address] [place], [place] Urea nitrogen [Mass/Vol] 9 mg/dL Normal 7-20 [facility] Comment on above: Performed By: #### H CYNTHIA BASS3Timo MG3 #### [place] [address] [place], [place] Potassium [Moles/Vol] 3.4 mmol/L Low 3.5-5.1 [facility] Comment on above: Performed By: #### H CYNTHIA BASS3Timo MG3 #### [place] [address], [place] Albumin [Mass/Vol] 4.5 g/dL Normal 3.5-5.0 [facility] Comment on above: Performed By: #### H CYNTHIA BASS3M, MG3 #### [place] [address], [place] Sodium [Moles/Vol] 137 mmol/L Normal 135-145 [facility] Comment on above: Performed By: #### H CYNTHIA BASS3M, MG3 #### [place] [address], [place] Chloride [Moles/Vol] 106 mmol/L Normal 98-107 [facility] Comment on above: Performed By: #### H CYNTHIA BASS3M, MG3 #### [place] [address] [place], [place] Complete Urinalysison 2019 Appearance (U) Clear Normal Clear [facility] Comment on above: Result Comment: . Performed By: #### C UA2, HCGUR #### [place] [address], [place] Bilirubin,Urine Negative Normal Negative [facility] Comment on above: Result Comment: . Performed By: #### C UA2, HCGUR #### [place] [address], [place] Color (U) Light-Yellow Normal Lt. Yellow [facility] Comment on above: Result Comment: . Performed By: #### C UA2, HCGUR #### [place] [address], [place] Glucose Ql (U) Normal Normal Normal (<70) [facility] Comment on above: Result Comment: . Performed By: #### C UA2, HCGUR #### [place] [address], [place] Ketone,Urine Negative Normal Negative [facility] Comment on above: Result Comment: . Performed By: #### C UA2, HCGUR #### [place] [address], [place] Leukocytes,Urine Negative Normal Negative [facility] Comment on above: Result Comment: . Performed By: #### C UA2, HCGUR #### [place] [address], [place] Nitrites,Urine Negative Normal Negative [facility] Comment on above: Result Comment: . Performed By: #### C UA2, HCGUR #### [place] [address], [place] Occult Blood,Urine Negative Normal Negative [facility] Comment on above: Result Comment: . Performed By: #### C UA2, HCGUR #### [place] [address], [place] pH (U) 6.5 Normal 5.0-8.0 [facility] Comment on above: Result Comment: . Performed By: #### C UA2, HCGUR #### [facility] [address] [place] [address] Protein (U) [Mass/Vol] Negative Normal Negative [facility] Comment on above: Result Comment: . Performed By: #### C UA2, HCGUR #### [facility] [address] [place] [address] Specific [place],Urine 1.013 Normal 1.005 - 1.030 [facility] Comment on above: Result Comment: . Performed By: #### C UA2, HCGUR #### [facility] [address] [place] [address] Urobilinogen,Urine Normal Normal Normal (0-1) [facility] Comment on above: Result Comment: . Performed By: #### C UA2, HCGUR #### [facility] [address] [place] [address] Comprehensive Metabolic Pane l w/ Reflex to MGon 10-07-2019 Albumin [Mass/Vol] 4.5 g/dL 3.5 - 5 g/dL [place] ALP [Catalytic activity/Vol] 81 U/L 38 - 126 U/L [place] ALT [Catalytic activity/Vol] 12 U/L 0 - 34 U/L [place] Comment on above: The ALT test is perf ormed by an updated assay method. Please note that the reference intervals have been changed and are now sex specific. Anion gap [Moles/Vol] 12 mmol/L [place], [place] AST [Catalytic activity/Vol] 23 U/L 15 - 46 U/L [place] Bilirubin Ql (U) 0.5 mg/dL 0.2 - 1.3 mg/dL [place] Calcium [Mass/Vol] 9.4 mg/dL 8.4 - 10. 4 mg/dL [place] Chloride [Moles/Vol] 106 mmol/L 98 - 10 7 mmol/L [place] CO2 [Moles/Vol] 19 mmol/L Low 22 - 30 mmol/L [place] Creatinine [Mass/Vol] 0.48 mg/dL Low 0.52 - 1.25 mg/dL [place] EGFR IF NonAfrican Cymraes >90.0 >60 mL/min [place] Comment on above: KDIGO guidelines pro vide the following GFR categories: Stage GFR(ml/min/1.73 m2) Terms G1 >=90 Normal or high G2 60-89 Mildly decreased* G3a 45-59 Mildly to moderately decreased G3b 30-44 Moderately to severely decreased G4 15-29 Severely decreased G5 <15 Kidney failure *Relative to young adult level. In the absence of evidence of kidney damage, neither GFR category G1 nor G2 fulfill the criteria for CKD. The CKD-EPI equation is validated in individuals 18 years of age and older. Currently the best equation for estimating glomerular filtration rate (GFR) from serum creatinine in children is the Bedside Hernandez equation. It is less accurate in patients with extremes of muscle mass, restriction of dietary protein, ingestion of creatine, extra-renal metabolism of creatinine, or treatment with medications that affect renal tubular creatinine secretion. GFR/1.73 sq M predicted among blacks MDRD (S/P/Bld) [Vol rate/Area] mL/min/{1.73_m2} >60 mL/min [place] Glucose [Mass/Vol] 95 mg/dL 70 - 100 mg/dL [place] Interpretation and review of laboratory results Abnormal [place] Potassium [Moles/Vol] 3.4 mmol/L Low 3.5 - 5.1 mmol/L [place] Protein [Mass/Vol] 7.5 g/dL 6.3 - 8.2 g/dL [place] Sodium [Moles/Vol] 137 mmol/L 135 - 145 mmol/L [place] Urea nitrogen [Mass/Vol] 9 mg/dL 7 - 20 mg/dL [place] Test Performed by [facility], [address] [place] [address] [place] HCG,Urine Qualon 10-07-2019 Beta HCG ( test) Ql (U) Negative Normal Negative [facility] Comment on above: Result Comment: Preg lin is the most common reason for HCG in urine, although choriocarcinoma, hydatidiform mole, and certain nontropho- blastic malignancies also result in detectable urinary HCG levels. Sensitivity = 20mIU/mL. Performed By: #### C UA2, HCGUR #### [place] [address] [place], [place] Hemogramon 10-07-2019 Erythrocyte distribution width (RBC) [Ratio] 13.0 % Normal 11.5-14.5 [facility] Comment on above: Performed By: #### H EMOG CMP3M, MG3 #### [place] [address] [place], [place] Hematocrit (Bld) [Volume fraction] 39.8 % Normal 35.0-47.0 [facility] Comment on above: Performed By: #### H EMONithin CMP3M, MG3 #### [place] [address] [place], [place] Hemoglobin (Bld) [Mass/Vol] 13.0 g/dL Normal 11.7-16.0 [facility] Comment on above: Performed By: #### H EMOG CMP3M, MG3 #### [place] [address] [place], [place] MCH (RBC) [Entitic mass] 28.4 pg Normal 26.0-34.0 [facility] Comment on above: Performed By: #### H EMOG CMP3M, MG3 #### [address] MCHC (RBC) [Mass/Vol] 32.7 % Normal 32.0-36.0 [facility] Comment on above: Performed By: #### H EMOG CMP3M, MG3 #### [place] [address] [place], [place] MCV (RBC) [Entitic vol] 86.8 fL Normal 79.0-98.0 [facility] Comment on above: Performed By: #### H EMOG CMP3M, MG3 #### [address] Platelet mean volume (Bld) [Entitic vol] 8.3 fL Normal 7.4-10.4 [facility] Comment on above: Performed By: #### H EMOG, CMP3M, MG3 #### [facility] [address], [place] Platelets (Bld) [#/Vol] 37 10*3/uL Low 140-440 [facility] Comment on above: Performed By: #### H EMOG, CMP3M, MG3 #### [facility] [address], [place] RBC (Bld) [#/Vol] 4.59 10*6/uL Normal 3.80-5.20 [facility] Comment on above: Performed By: #### H EMOG, CMP3M, MG3 #### [facility] [address], [place] WBC (Bld) [#/Vol] 11.4 10*3/uL High 3.6-10.7 [facility] Comment on above: Performed By: #### H EMOG, CMP3M, MG3 #### [place] [address], [place] Magnesiumon 10-07-2019 Magnesium [Mass/Vol] 1.8 mg/dL Normal 1.6-2.3 [facility] Comment on above: Performed By: #### H EMOG, CMP3M, MG3 #### [place] [address], [place] Magnesium [Mass/Vol] 1.8 mg/dL 1.6 - 2 .3 mg/dL [place] Test Performed by [id number] [place] [address] , urineon 0 Beta HCG ( test) Ql (U) Negative Negative NA [place] Comment on above: is the mos t common reason for HCG in urine, although choriocarcinoma, hydatidiform mole, and certain nontropho- blastic malignancies also result in detectable urinary HCG levels. Sensitivity = 20mIU/mL. Test Performed by [id number] [place] [address] Urinalysison 10-07-2019 Appearance (U) Clear Clear NA [place] Comment on above: . Bilirubin Urine Negative Negative mg/dL [place] Comment on above: . Color (U) Light-Yellow Lt. Yellow NA [place] Comment on above: . Glucose, Ur Normal Normal (<70) mg/dL [place] Comment on above: . Ketones Ql (U) Negative Negative mg/dL [place] Comment on above: . LEUKOCYTES, UA Negative Negative Judy/uL [place] Comment on above: . Nitrite, Urine Negative Negative NA [place] Comment on above: . Occult Blood,Urine Negative Negative mg/dL [place] Comment on above: . pH (U) 6.5 [pH] [place] Comment on above: . Protein (U) [Mass/Vol] Negative Negat forest mg/dL [place] Comment on above: . Specific [place], Urine 1.013 [place] Comment on above: . Urobilinogen, Urine Normal Normal (0-1) mg/dL [place] Comment on above: . Test Performed by [facility], [address] [place] [address] [place], [place] Urinalysis, Office ([id number])Or dered By: Alexis Iqbal on 05-17-2019 Bilirubin Ql (U) + Abnormal Comprehe nsive Internal Medicine; [facility] Work Phone: Glucose Test strip (U) [Mass/Vol] Negative Normal [facility]; [facility] Work Phone: Glucose Test strip (U) [Mass/Vol] Negative Normal [facility]; [facility] Work Phone: Hemoglobin Ql (U) Negative Normal Compreh ensive Internal Medicine; [facility] Work Phone: Hemoglobin Ql (U) Negative Normal Compreh ensive Internal Medicine; [facility] Work Phone: Ketones Ql (U) Negative Normal Comprehens [facility]; [facility] Work Phone: Ketones Ql (U) Negative Normal [facility]; [facility] Work Phone: Leukocyte esterase Test strip Ql (U) Negative Normal [facility]; [facility] Work Phone: Leukocyte esterase Test strip Ql (U) Negative Normal [facility]; [facility] Work Phone: Nitrite Ql (U) Negative Normal [facility]; [facility] Work Phone: Nitrite Ql (U) Negative Normal Comprehens [facility]; [facility] Work Phone: pH (U) 6 [pH] Abnormal [facility]; [facility] Work Phone: Protein Ql (U) Negative Normal [facility]; [facility] Work Phone: Protein Ql (U) Negative Normal Comprehens [facility]; [facility] Work Phone: Specific gravity (U) [Rel density] 1.025 1 Normal [facility]; [facility] Work Phone: Urobilinogen (24H U) [Mass/Time] Normal Normal [facility]; [facility] Work Phone: CBC & PLATELETS (AUTO) ([id number] [id number])Ordered By: Position Classifier on 03-29-2019 Erythrocyte distribution width (RBC) [Ratio] 14.1 % Normal 12.3-15.4 [facility]; [facility] Work Phone: Comment on above: PATIENT NOT FASTINGP ERFORMED BY: JORGE [employer] [employer] [id number] Hematocrit (Bld) [Volume fraction] 39.5 % Normal 34.0-46.6 [facility]; [facility] Work Phone: Comment on above: PATIENT NOT FASTINGP ERFORMED BY: JORGE [employer] [facility] [id number] Hemoglobin (Bld) [Mass/Vol] 13.0 g/dL Normal 11.1-15.9 [facility]; [facility] Work Phone: Comment on above: PATIENT NOT FASTINGP ERFORMED BY: JORGE [employer]70 Steven RoadDublin [place] [id number] MCH (RBC) [Entitic mass] 28.4 pg Normal 26.6-33.0 [facility]; [facility] Work Phone: Comment on above: PATIENT NOT FASTINGP ERFORMED BY: JORGE [facility] [id number] Steven RoadDublin [place] [id number] MCHC (RBC) [Mass/Vol] 32.9 g/dL Normal 31.5-35.[address] [facility]; [facility] Work Phone: Comment on above: PATIENT NOT FASTINGP ERFORMED BY: JORGE [facility] [id number] Steven RoadDublin [place] [id number] MCV (RBC) [Entitic vol] 86 fL Normal 79-97 [facility]; [facility] Work Phone: Comment on above: PATIENT NOT FASTINGP ERFORMED BY: JORGE [facility] [id number] Steven RoadDublin [place] [id number] Platelets (Bld) [#/Vol] 288 {x10E3/uL} Normal 150-450 [facility]; [facility] Work Phone: Comment on above: PATIENT NOT FASTINGP ERFORMED BY: JORGE [facility] [id number] [address] RoadDublin [place] [id number] Platelets (Bld) [#/Vol] 288 10*3/uL Normal 150-450 [facility]; [facility] Work Phone: Comment on above: PATIENT NOT FASTINGP ERFORMED BY: CB [facility] [id number] Steven RoadDublin [place] [id number] RBC (Bld) [#/Vol] 4.58 {x10E6/uL} Normal 3.77-5.28 [facility]; [facility] Work Phone: Comment on above: PATIENT NOT FASTINGP ERFORMED BY: CB [facility] [id number] [address] RoadDublin [place] [id number] RBC (Bld) [#/Vol] 4.58 10*6/uL Normal 3.77-5.28 Compr ehensive Internal Medicine; [facility] Work Phone: Comment on above: PATIENT NOT FASTINGP ERFORMED BY: JORGE [id number] [facility] [id number] WBC (Bld) [#/Vol] 6.3 {x10E3/uL} Normal 3.4-10.8 [facility] prehensive Internal Medicine; [facility] Work Phone: Comment on above: PATIENT NOT FASTINGP ERFORMED BY: JORGE LabDana[employer] [id number] [facility] [id number] WBC (Bld) [#/Vol] 6.3 10*3/uL Normal 3.4-10.8 [facility]; [facility] Work Phone: Comment on above: PATIENT NOT FASTINGP ERFORMED BY: JORGE [employer] [id number] [facility] [id number] MAGNESIUM ([id number])Ordered By: Position Classifier on 03-29-2019 Magnesium [Mass/Vol] 2.1 mg/dL Normal 1.6-2.3 [facility]; [facility] Work Phone: Comment on above: PATIENT NOT FASTINGP ERFORMED BY: JORGE [facility] Rtbgam1012 [facility] [id number] POTASSIUM SERUM ([id number])Order ed By: Position Classifier on 03-29-2019 Potassium [Moles/Vol] 4.0 mmol/L Normal 3.5-5.2 [facility] prehensive Internal Medicine; [facility] Work Phone: Comment on above: PATIENT NOT FASTINGP ERFORMED BY: [facility] Ecoims0446 [facility] [id number] Urinalysis, Office ([id number])Or dered By: Prerna De La Garza on 03-29-2019 Bilirubin Ql (U) Negative Normal Comprehe nsive Internal Medicine; [facility] Work Phone: Bilirubin Ql (U) Negative Normal Comprehe nsive Internal Medicine; [facility] Work Phone: Glucose Test strip (U) [Mass/Vol] Negative Normal [facility]; [facility] Work Phone: Glucose Test strip (U) [Mass/Vol] Negative Normal [facility]; [facility] Work Phone: Hemoglobin Ql (U) Negative Normal Compreh ensive Internal Medicine; [facility] Work Phone: Hemoglobin Ql (U) Negative Normal Compreh ensive Internal Medicine; [facility] Work Phone: Ketones Ql (U) 5 mg/dL Abnormal [facility]; [facility] Work Phone: Leukocyte esterase Test strip Ql (U) Negative Normal [facility]; [facility] Work Phone: Leukocyte esterase Test strip Ql (U) Negative Normal [facility]; [facility] Work Phone: Nitrite Ql (U) Negative Normal [facility]; [facility] Work Phone: Nitrite Ql (U) Negative Normal [facility]; [facility] Work Phone: pH (U) 6.5 [pH] Normal [facility]; [facility] Work Phone: Protein Ql (U) Negative Normal [facility]; [facility] Work Phone: Protein Ql (U) Negative Normal [facility]; [facility] Work Phone: Specific gravity (U) [Rel density] 1.020 1 Normal [facility]; [facility] Work Phone: Urobilinogen (24H U) [Mass/Time] Normal Normal [facility]; [facility] Work Phone: CBC, Platelets & Auto Diff ( [id number])Ordered By: Position Classifier on 10-24-2018 Basophils #/vol (Bld) 0.0 {x10E3/uL} Normal 0.0-0.2 [facility] Work Phone: Comment on above: PATIENT NOT FASTINGP ERFORMED BY: [facility] Ehbdbl7650 [facility] [id number] Basophils (Bld) [#/Vol] 0.0 10*3/uL Normal 0.0-0.2 [facility]; [facility] Work Phone: Comment on above: PATIENT NOT FASTINGP ERFORMED BY: CB [facility] Imibws1155 Steven RoadDublin [place] [id number] Basophils/100 WBC (Bld) 0 % Normal [facility] Work Phone: Comment on above: PATIENT NOT FASTINGP ERFORMED BY: CB [facility] Mkpjhn7603 Steven RoadDublin [place] [id number] Eosinophils #/vol (Bld) 0.1 {x10E3/uL} Normal 0.0-0.4 [facility] Work Phone: Comment on above: PATIENT NOT FASTINGP ERFORMED BY: CB [facility] Vkxaoa1344 Steven RoadDublin [place] [id number] Eosinophils (Bld) [#/Vol] 0.1 10*3/uL Normal 0.0-0.4 [facility]; [facility] Work Phone: Comment on above: PATIENT NOT FASTINGP ERFORMED BY: CB [facility] Xawuwf6029 Steven RoadDublin [place] [id number] Eosinophils/100 WBC (Bld) 2 % Normal [facility] Work Phone: Comment on above: PATIENT NOT FASTINGP ERFORMED BY: CB [facility] Swrqrg8554 [address] RoadCritical Access Hospitalin [place] [id number] Erythrocyte distribution width Ratio (RBC) 13.1 % Normal 12.3-15.4 [facility] Work Phone: Comment on above: PATIENT NOT FASTINGP ERFORMED BY: CB [facility] Wuikuu6304 Steven RoadDublin [place] [id number] Hematocrit Volume Fraction (Bld) 36.7 % Normal 34.0-46.6 [facility] Work Phone: Comment on above: PATIENT NOT FASTINGP ERFORMED BY: CB [facility] Xmefjw[address] RoadDublin [place] [id number] Hemoglobin mass conc (Bld) 12.5 g/dL Normal 11.1-15.9 [facility] Work Phone: Comment on above: PATIENT NOT FASTINGP ERFORMED BY: [facility] Gvfihg3511 Steven RoadDublin [place] [id number] Immature granulocytes #/vol (Bld) 0.0 {x10E3/uL} Normal 0.0-0.1 [facility] Work Phone: Comment on above: PATIENT NOT FASTINGP ERFORMED BY: [facility] Fjpqnq5976 Steven RoadDublin [place] [id number] Immature granulocytes (Bld) [#/Vol] 0.0 10*3/uL Normal 0.0-0.1 [facility]; [facility] Work Phone: Comment on above: PATIENT NOT FASTINGP ERFORMED BY: [facility] Glfhoe0756 [address] RoadDublin [place] [id number] Immature granulocytes/100 WBC (Bld) 0 % Normal [facility] Work Phone: Comment on above: PATIENT NOT FASTINGP ERFORMED BY: [facility] Nrizxi6047 [address] RoadDublin [place] [id number] Lymphocytes #/vol (Bld) 1.5 {x10E3/uL} Normal 0.7-3.1 [facility] Work Phone: Comment on above: PATIENT NOT FASTINGP ERFORMED BY: [facility] Cgnuvk3923 Steven RoadDublin [place] [id number] Lymphocytes (Bld) [#/Vol] 1.5 10*3/uL Normal 0.7-3.1 [facility]; [facility] Work Phone: Comment on above: PATIENT NOT FASTINGP ERFORMED BY: [facility] Ulqvsl0038 [address] RoadDublin [place] [id number] Lymphocytes/100 WBC (Bld) 20 % Normal [facility] Work Phone: Comment on above: PATIENT NOT FASTINGP ERFORMED BY: [facility] Ptiauz8293 Steven RoadDublin [place] [id number] MCH Entitic mass (RBC) 29.1 pg Normal 26.6-33.0 Co mprehensive Internal Medicine Work Phone: Comment on above: PATIENT NOT FASTINGP ERFORMED BY: JORGE LabCoadri Awsfsi8027 [address] [facility]blin [place] [id number] MCHC mass conc (RBC) 34.1 g/dL Normal 31.5-35.7 [facility] Internal Medicine Work Phone: Comment on above: PATIENT NOT FASTINGP ERFORMED BY: CB [facility] Rzyksg2772 [address] [facility]in [place] [id number] MCV Entitic volume (RBC) 86 fL Normal 79-97 [facility] Work Phone: Comment on above: PATIENT NOT FASTINGP ERFORMED BY: JORGE [facility] Hyefgg7253 [address] RoadCritical Access Hospitalin [place] [id number] Monocytes #/vol (Bld) 0.5 {x10E3/uL} Normal 0.1-0.9 [facility] Work Phone: Comment on above: PATIENT NOT FASTINGP ERFORMED BY: CB [facility] Xtaggz9536 [address] [facility] [place] [id number] Monocytes (Bld) [#/Vol] 0.5 10*3/uL Normal 0.1-0.9 [facility]; [facility] Work Phone: Comment on above: PATIENT NOT FASTINGP ERFORMED BY: JORGE [facility] Ujwvcu5522 [address] [facility] [place] [id number] Monocytes/100 WBC (Bld) 7 % Normal [facility] Work Phone: Comment on above: PATIENT NOT FASTINGP ERFORMED BY: CB [facility] Buolps8871 Steven Roadblin [place] [id number] Neutrophils #/vol (Bld) 5.5 {x10E3/uL} Normal 1.4-7.0 [facility] Work Phone: Comment on above: PATIENT NOT FASTINGP ERFORMED BY: CB [facility] Yiawck6240 [address] Roadblin [place] [id number] Neutrophils (Bld) [#/Vol] 5.5 10*3/uL Normal 1.4-7.0 [facility]; [facility] Work Phone: Comment on above: PATIENT NOT FASTINGP ERFORMED BY: CB [facility] Ghcmsp4709 [address] RoadDublin [place] [id number] Neutrophils/100 WBC (Bld) 71 % Normal [facility] Work Phone: Comment on above: PATIENT NOT FASTINGP ERFORMED BY: CB [facility] Iygsqi0720 Steven RoadDublin [place] [id number] Platelets #/vol (Bld) 244 {x10E3/uL} Normal 150-450 [facility] Work Phone: Comment on above: PATIENT NOT FASTINGP ERFORMED BY: CB [facility] Onalaq9941 Steven RoadDublin [place] [id number] Platelets (Bld) [#/Vol] 244 10*3/uL Normal 150-450 [facility]; [facility] Work Phone: Comment on above: PATIENT NOT FASTINGP ERFORMED BY: CB [facility] Xaqggy7040 [address] RoadDublin [place] [id number] RBC #/vol (Bld) 4.29 {x10E6/uL} Normal 3.77-5.28 Comp [facility] Work Phone: Comment on above: PATIENT NOT FASTINGP ERFORMED BY: CB [facility] Tcenix6071 [address] RoadDublin [place] [id number] RBC (Bld) [#/Vol] 4.29 10*6/uL Normal 3.77-5.28 Compr ensive Internal Medicine; [facility] Work Phone: Comment on above: PATIENT NOT FASTINGP ERFORMED BY: CB [facility] Klqook6496 [address] RoadDublin [place] [id number] WBC #/vol (Bld) 7.6 {x10E3/uL} Normal 3.4-10.8 Compr ensive Internal Medicine Work Phone: Comment on above: PATIENT NOT FASTINGP ERFORMED BY: CB [facility] Ftdbpl6544 [address] RoadDublin [place] [id number] WBC (Bld) [#/Vol] 7.6 10*3/uL Normal 3.4-10.8 [facility]ale [facility]ive [facility]; [facility] Work Phone: Comment on above: PATIENT NOT FASTINGP ERFORMED BY: JORGE [facility]6370 [facility] [id number] EBV Panel ([id number])Ordered By: Position Classifier on 10-24-2018 EBV capsid IgG IA Qn (S) 64.3 U/mL Abnormal 0.0-17.9 [facility] Work Phone: Comment on above: Negative <18.0 Equiv ocal 18.0 - 21.9 Positive >21.9 PATIENT NOT FASTINGP ERFORMED BY: JORGE [facility] ServicesHills [facility]6370 [facility] [id number] EBV capsid IgM IA Qn (S) <36.0 Normal 0.0-35.9 [facility] Work Phone: Comment on above: Negative <36.0 Equiv ocal 36.0 - 43.9 Positive >43.9 PATIENT NOT FASTINGP ERFORMED BY: JORGE Employyd.comCommunity Medical CenterWikqfh2645 [facility] [id number] EBV early IgG Qn (S) <9.0 Normal 0.0-8.9 Comp [facility] Internal Medicine Work Phone: Comment on above: Negative < 9.0 Equiv ocal 9.0 - 10.9 Positive >10.9 PATIENT NOT FASTINGP ERFORMED BY: Employyd.comCommunity Medical CenterCpuqow3433 [facility] [id number] EBV nuclear IgG IA Qn (S) 183.0 U/mL Abnormal 0.0-17.9 [facility] Work Phone: Comment on above: Negative <18.0 Equiv ocal 18.0 - 21.9 Positive >21.9 PATIENT NOT FASTINGP ERFORMED BY: JORGE [address] [id number] Service comment Interp (Unsp spec) SPRCS Normal [facility] Work Phone: Comment on above: EBV Interpretation C marcial . Interpretation EBV-IgM EA(D)-IgG VCA-IgG EBNA-IgG . EBV Seronegative - - - - Early Phase + - - - Acute Primary + +or- + - Infection Convalescence/Past - +or- + + Infection Reactivated +or- +or- + + Infection + Antibody Present - Antibody Absent PATIENT NOT FASTINGP ERFORMED BY: JORGE [facility] Kykhep6739 [address] Kingland CompaniesCritical Access Hospitalin [place] [id number] MONOSPOT TEST ([id number])Ordered By: Position Classifier on 10-24-2018 Heterophile Ab LA Ql (S) Negative Normal [facility] Work Phone: Comment on above: The sensitivity of H eterophile antibody testing is 80-90%.Gladis Aragon IgM testing offers higher sensitivity. PATIENT NOT FASTINGP ERFORMED BY: JORGE [facility] Vqbnoe2023 Steven Kingland CompaniesMission Family Health Center [id number] Heterophile Ab LA Ql (S) Negative Normal [facility]; [facility] Work Phone: Comment on above: The sensitivity of H eterophile antibody testing is 80-90%.Gladis Aragon IgM testing offers higher sensitivity. PATIENT NOT FASTINGP ERFORMED BY: OpTier6370 CreatorBoxAtrium Health [id number] Metabolic Panel, Comprehensi ve ([id number])Ordered By: Position Classifier on 10-24-2018 Albumin mass conc 4.8 g/dL Normal 3.5-5.5 Compreh ensive Internal Medicine Work Phone: Comment on above: PATIENT NOT FASTINGP ERFORMED BY: GOVECS Gjhznq5814 Steven [facility] [id number] Albumin/Globulin mass ratio 2.3 {ratio} Abnormal 1.2-2.2 [facility] Work Phone: Comment on above: PATIENT NOT FASTINGP ERFORMED BY: GOVECS Izxtpn1800 [address] [facility] [id number] ALP [Catalytic activity/Vol] 71 U/L Normal 39-117 [facility]; [facility] Work Phone: Comment on above: PATIENT NOT FASTINGP ERFORMED BY: GOVECS Yxeqyk0181 [address] RoadDublin [place] [id number] ALP enzyme act/vol 71 [iU]/L Normal 39-117 [facility] Internal Medicine Work Phone: Comment on above: PATIENT NOT FASTINGP ERFORMED BY: CB [facility] Hejcpy4598 [address] RoadDublin [place] [id number] ALT [Catalytic activity/Vol] 10 U/L Normal 0-32 [facility]; [facility] Internal Medicine Work Phone: Comment on above: PATIENT NOT FASTINGP ERFORMED BY: CB [facility] Lmanzb6317 [address] RoadDublin [place] [id number] ALT enzyme act/vol 10 [iU]/L Normal 0-32 [facility] Internal Medicine Work Phone: Comment on above: PATIENT NOT FASTINGP ERFORMED BY: CB [facility] Unllub1646 Steven RoadDublin [place] [id number] AST [Catalytic activity/Vol] 15 U/L Normal 0-40 [facility]; [facility] Internal Medicine Work Phone: Comment on above: PATIENT NOT FASTINGP ERFORMED BY: CB [facility] Serhzj4489 Steven RoadDublin [place] [id number] AST enzyme act/vol 15 [iU]/L Normal 0-40 [facility] Internal Medicine Work Phone: Comment on above: PATIENT NOT FASTINGP ERFORMED BY: CB [facility] Nqophv2182 [address] RoadDublin [place] [id number] Bilirubin mass conc 0.3 mg/dL Normal 0.0-1.2 [facility] Work Phone: Comment on above: PATIENT NOT FASTINGP ERFORMED BY: CB [facility] Xyzeyt6007 [address] RoadDublin [place] [id number] Calcium mass conc 9.8 mg/dL Normal 8.7-10.2 [facility] Work Phone: Comment on above: PATIENT NOT FASTINGP ERFORMED BY: CB [facility] Ywjqho6408 [address] RoadDublin [place] [id number] Chloride molar conc 108 mmol/L Abnormal 96-106 Compr ensive Internal Medicine Work Phone: Comment on above: PATIENT NOT FASTINGP ERFORMED BY: CB [facility] Lgqxao6396 [address] RoadDublin [place] [id number] CO2 molar conc 20 mmol/L Normal 20-29 [facility] Internal Medicine Work Phone: Comment on above: PATIENT NOT FASTINGP ERFORMED BY: CB [facility] Yzwcyj1364 Steven Roadblin [place] [id number] Creatinine mass conc 0.70 mg/dL Normal 0.57-1.00 Comp rehensive Internal Medicine Work Phone: Comment on above: PATIENT NOT FASTINGP ERFORMED BY: CB [facility] Emgdsa8124 Steven RoadCritical Access Hospitalin [place] [id number] GFR/1.73 sq M predicted among blacks CKD-EPI vol rate/area (S/P/Bld) 134 mL/min/1.73 Normal [facility] Work Phone: Comment on above: PATIENT NOT FASTINGP ERFORMED BY: CB [facility] Mcdsjc9233 Steven [facility] [place] [id number] GFR/1.73 sq M predicted among non-blacks CKD-EPI vol rate/area (S/P/Bld) 117 mL/min/1.73 Normal Comprehensiv e Internal Medicine Work Phone: Comment on above: PATIENT NOT FASTINGP ERFORMED BY: CB [facility] Yvibno1021 [address] [facility] [place] [id number] Globulin mass conc (S) 2.1 g/dL Normal 1.5-4.5 Co mprehensive Internal Medicine Work Phone: Comment on above: PATIENT NOT FASTINGP ERFORMED BY: CB [facility] Ssxjqr9503 Steven [facility]bl[facility] [place] [id number] Glucose mass conc 87 mg/dL Normal 65-99 Compreh ensive Internal Medicine Work Phone: Comment on above: PATIENT NOT FASTINGP ERFORMED BY: CB [facility] Isqpts4963 [address] [facility]in [place] [id number] Potassium molar conc 4.4 mmol/L Normal 3.5-5.2 Comp rehensive Internal Medicine Work Phone: Comment on above: PATIENT NOT FASTINGP ERFORMED BY: JORGE [facility] Zjmsfo5740 [facility] [id number] Protein mass conc 6.9 g/dL Normal 6.0-8.5 Compreh ensive Internal Medicine Work Phone: Comment on above: PATIENT NOT FASTINGP ERFORMED BY: JORGE [facility] Illurg9615 [facility] [id number] Sodium molar conc 141 mmol/L Normal 134-144 Compreh ensive Internal Medicine Work Phone: Comment on above: PATIENT NOT FASTINGP ERFORMED BY: JORGE LabCoadri StoreyFumloh6541 [facility] [id number] Urea nitrogen mass conc 11 mg/dL Normal 6-20 [facility] Work Phone: Comment on above: PATIENT NOT FASTINGP ERFORMED BY: JORGE LabCoadri StoreyIzeyqi5210 [facility] [id number] Urea nitrogen/Creatinine mass ratio 16 mg/mg Normal 9-23 [facility] Work Phone: Comment on above: PATIENT NOT FASTINGP ERFORMED BY: JORGE LabCoadri Dmedzw5847 [facility] [id number] Throat Culture ([id number])Ordere d By: Position Classifier on 10-24-2018 Bacteria identified Respiratory culture Nom (Unsp spec) Final report Normal [facility] Work Phone: Comment on above: PATIENT NOT FASTINGP ERFORMED BY: JORGE [facility] Mswlbl8670 [facility] [id number] Information: SRC:TH Bacteria identified Respiratory culture Nom (Unsp spec) RRF Normal [facility] Work Phone: Comment on above: Routine respiratory mary PATIENT NOT FASTINGP ERFORMED BY: JORGE [facility] Bphcfx2225 [facility] [id number] Information: SRC:TH Basic Metabolic Profile (BMP )on 05-04-2018 Basic metabolic 2000 panel 80 mg/dL Normal 74-106 [facility] Work Phone: Comment on above: Please note revised GLUCOSE reference range lxxhzumwk54/02/2018. Basic metabolic 2000 panel 108 mL/min Normal [facility] Work Phone: Comment on above: Non- GFR Calc Basic metabolic 2000 panel 0.68 mg/dL Normal 0.55-1.02 [facility] Work Phone: Comment on above: The validity of the calculated GFR AND GFRAA in patients over70 years has not been determined. Clinical correlation isessential. Basic metabolic 2000 panel 16 mg/dL Normal 7-18 [facility] Work Phone: Basic metabolic 2000 panel 139 mmol/L Normal 136-145 [facility] Work Phone: Basic metabolic 2000 panel 108 mmol/L Abnormal 98-107 [facility] Work Phone: Basic metabolic 2000 panel 10 1 Normal 5-15 [facility] Work Phone: Basic metabolic 2000 panel 3.4 mmol/L Abnormal 3.5-5.1 [facility] Work Phone: Basic metabolic 2000 panel 9.0 mg/dL Normal 8.5-10.1 [facility] Work Phone: Basic metabolic 2000 panel 23.6 {RATIO} Abnormal 10-20 [facility] Work Phone: Basic metabolic 2000 panel 96.55 ml/min Normal [facility] Work Phone: Basic metabolic 2000 panel 131 mL/min Normal [facility] Work Phone: Comment on above: GFR Calc Basic metabolic 2000 panel 21.0 mmol/L Normal 21.0-32.0 [facility] Work Phone: CBC W/Diff, Automatedon 01-0 2-2018 Basophils/100 WBC Auto (Bld) 0.4 % Normal 0-1 [facility] Work Phone: Eosinophils/100 WBC Auto (Bld) 1.9 % Normal 0-5 [facility] Work Phone: Erythrocyte distribution width Auto Ratio (RBC) 13.5 % Normal 11.6-14.6 [facility] Work Phone: Hematocrit Auto Volume Fraction (Bld) 37.0 % Normal 37-47 [facility] Internal Medicine Work Phone: Hemoglobin mass conc (Bld) 12.2 g/dL Normal 12.0-15.0 [facility] Internal Medicine Work Phone: Lymphocytes/100 WBC Auto (Bld) 26.9 % Normal 19-41 [facility] Internal Medicine Work Phone: MCH Auto Entitic mass (RBC) 28.3 pg Normal 27.0-32.0 [facility] Internal Medicine Work Phone: MCHC Auto mass conc (RBC) 33.0 {g/gl} Normal 32-36 [facility] Internal Medicine Work Phone: MCV Auto Entitic volume (RBC) 85.8 fL Normal 81-99 [facility] Internal Medicine Work Phone: Monocytes/100 WBC Auto (Bld) 7.1 % Normal 0-10 [facility] Internal Medicine Work Phone: Neutrophils/100 WBC Auto (Bld) 63.6 % Normal 47-70 [facility] Internal Medicine Work Phone: Platelet mean volume Auto Entitic volume (Bld) 9.2 fL Normal 6.2-12.0 [facility] Internal Medicine Work Phone: Platelets Auto #/vol (Bld) 246 10*3/uL Normal 150-450 [facility] Internal Medicine Work Phone: RBC Auto #/vol (Bld) 4.31 {M/mm3} Normal 4.2-5.4 [facility] Internal Medicine Work Phone: WBC Auto #/vol (Bld) 7.0 10*3/uL Normal 4.4-11.0 [facility] prehensive Internal Medicine Work Phone: CBC W/Diff, Automated 42.6 fL Normal 35.1-43.9 [facility] prehensive Internal Medicine Work Phone: CBC W/Diff, Automated 1.88 {X10_3/ul} Normal 0.83-4.51 [facility] Internal Medicine Work Phone: CBC W/Diff, Automated 4.5 {X10_3/uL} Normal 2.0-7.7 [facility] Internal Medicine Work Phone: CBC W/Diff, Automated 0.100 % Normal 0.0-0.[address] [facility] [address] Work Phone: Comment on above: IG% - Immature Granu locytes (promyelocytes, myelocytes andmetamyelocytes) > 1% indicates that a LEFT SHIFT is Present. Troponin-Ion 05-04-2018 Troponin I.cardiac mass conc ng/mL Normal [facility] Internal Medicine Work Phone: Comment on above: TROPONIN-I EXPECTED VALUES <0.045 Negative 0.045 - 0.590 Consistent with Cardiac Damage > OR = 0.600 Critical Value Not every elevated troponin is indicative of MN. Thesevalues should be used with clinical judgement in examiningthe patient's clinical picture for diagnosis. To establisha diagnosis of MN versus myocardial injury, there must be ademonstrated rise and/or fall in the troponin values, inaddition to ischemic symptoms, EKG changes, new regionalwall motion abnormality, and/or angiographical evidence. PLEASE NOTE: REFERENCE RANGES EDITED 17 hCG Titer Quant., Serumon HCG.beta subunit Qn m[IU]/mL Normal [facility] Internal Medicine Work Phone: [facility] AB Modulatingon 018 Acetylcholine receptor modulation Ab/Acetylcholine Ab.total SFr (S) 56 % Abnormal 0-20 [facility] Internal Medicine Work Phone: Comment on above: Negative: <21 Equivo hermes: 21 - 25 Positive: >25 The assay is linear between values of 12 and 64. Those <12 and >64 are reported as such. No single value for ACR-modulating antibody should be used as a sole basis for diagnosis or response to therapy.Performed at: [address] [id number] Director: Oscar Lynn MD, Phone: [phone] [employer] Distribution Operation Supervisor AB, Blockingon Acetylcholine receptor blocking Ab Ql (S) 45 % Abnormal 0-25 [facility] Internal Medicine Work Phone: Comment on above: Results verified b y repeat testing Negative: 0 - 25 Borderline: 26 - 30 Positive: >30Results for this test are for research purposesonly by the assay's ships or barges loader. The performancecharacteristics of this product have not beenestablished. Results should not be used as adiagnostic procedure without confirmation of thediagnosis by another medically establisheddiagnostic product or procedure. Basic Metabolic Profile (BMP )on 02-11-2018 Basic metabolic 2000 panel 115 mg/dL Abnormal 74-106 [facility] Work Phone: Comment on above: Fasting Glucose resu lt from 100 to 125 mg/dLsuggests IMPAIRED HOMEOSTASIS per A.D.A. criteria.Please note revised GLUCOSE reference range [id number]/02/2018. Basic metabolic 2000 panel 13.6 {RATIO} Normal 10-20 [facility] Work Phone: Basic metabolic 2000 panel 8.8 mg/dL Normal 8.5-10.1 [facility] Work Phone: Basic metabolic 2000 panel 12 mg/dL Normal 7-18 [facility] Work Phone: Basic metabolic 2000 panel 0.88 mg/dL Normal 0.55-1.02 [facility] Work Phone: Comment on above: The validity of the calculated GFR AND GFRAA in patients over70 years has not been determined. Clinical correlation isessential. Basic metabolic 2000 panel 74.60 ml/min Normal [facility] Work Phone: Basic metabolic 2000 panel 138 mmol/L Normal 136-145 [facility] Work Phone: Basic metabolic 2000 panel 3.3 mmol/L Abnormal 3.5-5.1 [facility] Work Phone: Basic metabolic 2000 panel 81 mL/min Normal [facility] Work Phone: Comment on above: Non- GFR Calc Basic metabolic 2000 panel 110 mmol/L Abnormal 98-107 [facility] Work Phone: Basic metabolic 2000 panel 97 mL/min Normal [facility] Work Phone: Comment on above: GFR Calc Basic metabolic 2000 panel 9 1 Normal 5-15 [facility] Work Phone: Basic metabolic 2000 panel 19.0 mmol/L Abnormal 21.0-32.0 [facility] Internal Medicine Work Phone: CBC W/Diff, Automatedon 01-31 2-2018 Basophils/100 WBC Auto (Bld) 0.1 % Normal 0-1 [facility] Internal Medicine Work Phone: Eosinophils/100 WBC Auto (Bld) 0.0 % Normal 0-5 [facility] Internal Medicine Work Phone: Erythrocyte distribution width Auto Ratio (RBC) 13.3 % Normal 11.6-14.6 [facility] Internal Medicine Work Phone: Hematocrit Auto Volume Fraction (Bld) 37.2 % Normal 37-47 [facility] Medicine Work Phone: Hemoglobin mass conc (Bld) 12.8 g/dL Normal 12.0-15.0 [facility] Internal Medicine Work Phone: Lymphocytes/100 WBC Auto (Bld) 5.2 % Abnormal 19-41 [facility] Internal Medicine Work Phone: MCH Auto Entitic mass (RBC) 28.8 pg Normal 27.0-32.0 [facility] Internal Medicine Work Phone: MCHC Auto mass conc (RBC) 34.4 {g/gl} Normal 32-36 [facility] Internal Medicine Work Phone: MCV Auto Entitic volume (RBC) 83.8 fL Normal 81-99 [facility] Internal Medicine Work Phone: Monocytes/100 WBC Auto (Bld) 0.9 % Normal 0-10 [facility] Internal Medicine Work Phone: Neutrophils/100 WBC Auto (Bld) 93.7 % Abnormal 47-70 [facility] Internal Medicine Work Phone: Platelet mean volume Auto Entitic volume (Bld) 9.5 fL Normal 6.2-12.0 [facility] Internal Medicine Work Phone: Platelets Auto #/vol (Bld) 265 10*3/uL Normal 150-450 [facility] Internal Medicine Work Phone: RBC Auto #/vol (Bld) 4.44 {M/mm3} Normal 4.2-5.4 [facility] Work Phone: WBC Auto #/vol (Bld) 9.3 10*3/uL Normal 4.4-11.0 [facility] prehensive Internal Medicine Work Phone: CBC W/Diff, Automated 0.48 {X10_3/ul} Abnormal 0.83-4.51 [facility] Work Phone: CBC W/Diff, Automated 40.5 fL Normal 35.1-43.9 [facility] prehensive Internal Medicine Work Phone: CBC W/Diff, Automated 8.7 {X10_3/uL} Abnormal 2.0-7.7 [facility] Work Phone: CBC W/Diff, Automated RARE Normal [facility] prehensive Internal Medicine Work Phone: CBC W/Diff, Automated 0.100 % Normal 0.0-0.9 [facility] pre[facility]ive Internal Medicine Work Phone: Comment on above: IG% - Immature Granu locytes (promyelocytes, myelocytes andmetamyelocytes) > 1% indicates that a LEFT SHIFT is Present. CBC, Platelets & Auto Diff ( 74277)Ordered By: Position Classifier on 01-24-2018 Basophils #/vol (Bld) 0.0 {x10E3/uL} Normal 0.0-0.2 [facility] Work Phone: Comment on above: PATIENT NOT FASTINGP ERFORMED BY: JORGE [employer] [id number] Information: SRC:UC Basophils (Bld) [#/Vol] 0.0 10*3/uL Normal 0.0-0.2 [facility]; [facility] Work Phone: Comment on above: PATIENT NOT FASTINGP ERFORMED BY: JORGE [facility] Cjvvug4969 [facility] [id number] Information: SRC:UC Basophils/100 WBC (Bld) 0 % Normal [facility] Work Phone: Comment on above: PATIENT NOT FASTINGP ERFORMED BY: [facility] Jcojyo2214 [facility] [id number] Information: SRC:UC Eosinophils #/vol (Bld) 0.2 {x10E3/uL} Normal 0.0-0.4 [facility] Work Phone: Comment on above: PATIENT NOT FASTINGP ERFORMED BY: JORGE Storeylin6370 [address] [facility] [id number] Information: SRC:UC Eosinophils (Bld) [#/Vol] 0.2 10*3/uL Normal 0.0-0.4 [facility]; [facility] Work Phone: Comment on above: PATIENT NOT FASTINGP ERFORMED BY: JORGE [facility] Wghhze7620 [address] [facility] [id number] Information: SRC:UC Eosinophils/100 WBC (Bld) 2 % Normal [facility] Work Phone: Comment on above: PATIENT NOT FASTINGP ERFORMED BY: JORGE [facility] Ffxwlu5189 [address] [facility] [id number] Information: SRC:UC Erythrocyte distribution width Ratio (RBC) 14.4 % Normal 12.3-15.4 [facility] Work Phone: Comment on above: PATIENT NOT FASTINGP ERFORMED BY: JORGE [facility] Eabxzw6075 [facility] [id number] Information: SRC:UC Hematocrit Volume Fraction (Bld) 37.8 % Normal 34.0-46.6 [facility] Work Phone: Comment on above: PATIENT NOT FASTINGP ERFORMED BY: JORGE [facility] Nqnyrn5965 [facility] [id number] Information: SRC:UC Immature granulocytes (Bld) [#/Vol] 0.0 10*3/uL Normal 0.0-0.1 [facility]; [facility] Work Phone: Comment on above: PATIENT NOT FASTINGP ERFORMED BY: JORGE [facility] Untrcn2576 [address] [facility] [id number] Information: SRC:UC Lymphocytes #/vol (Bld) 2.3 {x10E3/uL} Normal 0.7-3.1 [facility] Work Phone: Comment on above: PATIENT NOT FASTINGP ERFORMED BY: CB [facility] Yhebdg7809 [address] RoadDublin [place] [id number] Information: SRC:UC Lymphocytes (Bld) [#/Vol] 2.3 10*3/uL Normal 0.7-3.1 [facility]; [facility] Work Phone: Comment on above: PATIENT NOT FASTINGP ERFORMED BY: CB [facility] Rkegaa6900 [address] RoadDublin [place] [id number] Information: SRC:UC Lymphocytes/100 WBC (Bld) 30 % Normal [facility] Work Phone: Comment on above: PATIENT NOT FASTINGP ERFORMED BY: CB [facility] Mnmuif3409 [address] RoadDublin [place] [id number] Information: SRC:UC MCH Entitic mass (RBC) 28.0 pg Normal 26.6-33.0 [facility] Internal [facility] Work Phone: Comment on above: PATIENT NOT FASTINGP ERFORMED BY: CB [facility] Kvbkqe3322 [address] Roadbl[address] [place] [id number] Information: SRC:UC MCHC mass conc (RBC) 33.6 g/dL Normal 31.5-35.7 [facility] Internal Medicine Work Phone: Comment on above: PATIENT NOT FASTINGP ERFORMED BY: CB [facility] Sufpvz2792 [address] RoadDublin [place] [id number] Information: SRC:UC MCV Entitic volume (RBC) 83 fL Normal 79-97 [facility] Internal Medicine Work Phone: Comment on above: PATIENT NOT FASTINGP ERFORMED BY: CB [facility] Atadri0131 [address] RoadDublin [place] [id number] Information: SRC:UC Monocytes #/vol (Bld) 0.5 {x10E3/uL} Normal 0.1-0.9 [facility] Work Phone: Comment on above: PATIENT NOT FASTINGP ERFORMED BY: CB [facility] Hwcjrk2053 [address] RoadD[address] [place] [id number] Information: SRC:UC Monocytes (Bld) [#/Vol] 0.5 10*3/uL Normal 0.1-0.9 [facility]; [facility] Work Phone: Comment on above: PATIENT NOT FASTINGP ERFORMED BY: JORGE [facility] Tbybsp7471 [address] RoadDublin [place] [id number] Information: SRC:UC Monocytes/100 WBC (Bld) 7 % Normal [facility] Work Phone: Comment on above: PATIENT NOT FASTINGP ERFORMED BY: CB [facility] Mknuge9931 [address] RoadDublin [place] [id number] Information: SRC:UC Neutrophils #/vol (Bld) 4.5 {x10E3/uL} Normal 1.4-7.0 [facility] Work Phone: Comment on above: PATIENT NOT FASTINGP ERFORMED BY: JORGE [facility] Sskuax0615 [address] RoadD[address] [place] [id number] Information: SRC:UC Neutrophils (Bld) [#/Vol] 4.5 10*3/uL Normal 1.4-7.0 [facility]; [facility] Work Phone: Comment on above: PATIENT NOT FASTINGP ERFORMED BY: JORGE [facility] Dzpkgf7569 [address] RoadDublin [place] [id number] Information: SRC:UC Neutrophils/100 WBC (Bld) 61 % Normal [facility] Work Phone: Comment on above: PATIENT NOT FASTINGP ERFORMED BY: CB [facility] Sjpjja4943 [address] RoadD[address] [place] [id number] Information: SRC:UC Platelets #/vol (Bld) 331 {x10E3/uL} Normal 150-379 [facility] Work Phone: Comment on above: PATIENT NOT FASTINGP ERFORMED BY: JORGE [facility] Nscvxo0877 [address] RoadD[address] [place] [id number] Information: SRC:UC Platelets (Bld) [#/Vol] 331 10*3/uL Normal 150-379 [facility]; [facility] Work Phone: Comment on above: PATIENT NOT FASTINGP ERFORMED BY: JORGE Magdaleno70 [facility] [id number] Information: SRC: RBC #/vol (Bld) 4.53 {x10E6/uL} Normal 3.77-5.28 [facility] Internal Medicine Work Phone: Comment on above: PATIENT NOT FASTINGP ERFORMED BY: JORGE Storeylin6370 [facility] [id number] Information: SRC: RBC (Bld) [#/Vol] 4.53 10*6/uL Normal 3.77-5.28 [facility]; [facility] Work Phone: Comment on above: PATIENT NOT FASTINGP ERFORMED BY: JORGE Briones Cnmjil8054 [facility] [id number] Information: SRC: WBC #/vol (Bld) 7.4 {x10E3/uL} Normal 3.4-10.8 [facility] Internal [facility] Work Phone: Comment on above: PATIENT NOT FASTINGP ERFORMED BY: JORGE Storeylin6370 [facility] [id number] Information: SRC: WBC (Bld) [#/Vol] 7.4 10*3/uL Normal 3.4-10.8 [facility]; [facility] Work Phone: Comment on above: PATIENT NOT FASTINGP ERFORMED BY: JORGE LabDanae Yolccd1349 [facility] [id number] Information: SRC: CBC, Platelets & Auto Diff ( [id number])on 01-24-2018 Basophils Auto #/vol (Bld) 0.0 {x10E3/uL} Normal 0.0-0.2 [facility] Work Phone: Basophils/100 WBC Auto (Bld) 0 % Normal [facility] Work Phone: Eosinophils Auto #/vol (Bld) 0.2 {x10E3/uL} Normal 0.0-0.4 [facility] Work Phone: Eosinophils/100 WBC Auto (Bld) 2 % Normal [facility] Work Phone: Erythrocyte distribution width Auto Ratio (RBC) 14.4 % Normal 12.3-15.4 [facility] Work Phone: Hematocrit Auto Volume Fraction (Bld) 37.8 % Normal 34.0-46.6 [facility] Work Phone: Hemoglobin mass conc (Bld) 12.7 g/dL Normal 11.1-15.9 [facility] Work Phone: Comment on above: PATIENT NOT FASTINGP ERFORMED BY: [facility] [id number] Information: SRC: Immature granulocytes #/vol (Bld) 0.0 {x10E3/uL} Normal 0.0-0.1 [facility] Work Phone: Comment on above: PATIENT NOT FASTINGP ERFORMED BY: RecommendM[facility] [id number] Information: SRC:UC Immature granulocytes/100 WBC (Bld) 0 % Normal [facility] Work Phone: Comment on above: PATIENT NOT FASTINGP ERFORMED BY: [facility] [id number] Information: SRC:UC Lymphocytes Auto #/vol (Bld) 2.3 {x10E3/uL} Normal 0.7-3.1 [facility] Work Phone: Lymphocytes/100 WBC Auto (Bld) 30 % Normal [facility] Work Phone: MCH Auto Entitic mass (RBC) 28.0 pg Normal 26.6-33.0 [facility] Work Phone: MCHC Auto mass conc (RBC) 33.6 g/dL Normal 31.5-35.7 [facility] Work Phone: MCV Auto Entitic volume (RBC) 83 fL Normal 79-97 [facility] Work Phone: Monocytes Auto #/vol (Bld) 0.5 {x10E3/uL} Normal 0.1-0.9 [facility] Work Phone: Monocytes/100 WBC Auto (Bld) 7 % Normal [facility] Work Phone: Neutrophils Auto #/vol (Bld) 4.5 {x10E3/uL} Normal 1.4-7.0 [facility] Work Phone: Neutrophils/100 WBC Auto (Bld) 61 % Normal [facility] Work Phone: Platelets Auto #/vol (Bld) 331 {x10E3/uL} Normal 150-379 [facility] Work Phone: RBC Auto #/vol (Bld) 4.53 {x10E6/uL} Normal 3.77-5.28 [facility] Work Phone: WBC Auto #/vol (Bld) 7.4 {x10E3/uL} Normal 3.4-10.8 [facility] Work Phone: TSH ([id number])on 01-24-2018 Thyrotropin Qn 2.510 {uIU/mL} Normal 0.450-4.50 0 [facility] Work Phone: Comment on above: PATIENT NOT FASTINGP ERFORMED BY: JORGE ARTA [facility]ienceSaint [facility] [id number] URINE SARAH BETH CULTURE (TEN COL COUNT) ([id number])on 01-24-2018 Bacteria identified Cx Nom (U) Final report Normal [facility] Work Phone: Comment on above: PATIENT NOT FASTINGP ERFORMED BY: JORGE [employer] [place] [id number] Bacteria identified Cx Nom (U) MUG Normal [facility] Work Phone: Comment on above: Mixed urogenital eddie ra1,000 Colonies/mL PATIENT NOT FASTINGP ERFORMED BY: [facility]isAt[facility] [id number] Urinalysis, Office ([id number])Or dered By: Madai Dunbar on 01-24-2018 Bilirubin Ql (U) Small Normal Comprehe nsive [facility] Medicine Work Phone: Glucose Test strip (U) [Mass/Vol] Negative Normal [facility]; [facility] Work Phone: Glucose Test strip mass conc (U) Negative Normal [facility] Work Phone: Hemoglobin Ql (U) Hemolyzed Large Normal Co mprehensive [facility] Work Phone: Hemoglobin Test strip Ql (U) Hemolyzed Large Normal [facility] Work Phone: Ketones Ql (U) Negative Normal [facility] Work Phone: Ketones Ql (U) Negative Normal [facility]; [facility] Work Phone: Leukocyte esterase Test strip Ql (U) Negative Normal [facility] Work Phone: Leukocyte esterase Test strip Ql (U) Negative Normal [facility]; [facility] Work Phone: Nitrite Ql (U) Negative Normal [facility] Work Phone: Nitrite Ql (U) Negative Normal [facility]; [facility] Work Phone: Nitrite Test strip Ql (U) Negative Normal [facility] Work Phone: Protein Ql (U) Negative Normal [facility] Work Phone: Protein Ql (U) Negative Normal [facility]; [facility] Work Phone: Protein Test strip Ql (U) Negative Normal [facility] Work Phone: Specific gravity Relative Density (U) 1.030 1 Abnormal Comprehensi ve [facility] Work Phone: Urobilinogen mass/time (24H U) Normal Normal [facility] Work Phone: CBC W/Diff, Automatedon 09-0 Absolute Lymph 2.28 {X10_3/ul} Normal 0.83-4.51 Compr ehensive [facility] Medicine Work Phone: Absolute Neut 3.8 {X10_3/uL} Normal 2.0-7.7 Compreh ensive [facility] Medicine Work Phone: Basophils/100 WBC Auto (Bld) 0.4 % Normal 0-1 [facility] Work Phone: Eosinophils/100 WBC Auto (Bld) 2.4 % Normal 0-5 [facility] Work Phone: Erythrocyte distribution width Auto Ratio (RBC) 13.6 % Normal 11.6-14.6 [facility] Internal Medicine Work Phone: Hematocrit Auto Volume Fraction (Bld) 38.4 % Normal 37-47 [facility] Internal [facility] Work Phone: Hemoglobin mass conc (Bld) 12.6 g/dL Normal 12.0-15.0 [facility] Internal Medicine Work Phone: IM GRAN % 0.000 % Normal 0.0-0.9 [facility] Internal Medicine Work Phone: Comment on above: IG% - Immature Granu locytes (promyelocytes, myelocytes andmetamyelocytes) > 1% indicates that a LEFT SHIFT is Present. Lymphocytes/100 WBC Auto (Bld) 34.1 % Normal 19-41 [facility] Internal Medicine Work Phone: MCH Auto Entitic mass (RBC) 27.3 pg Normal 27.0-32.0 [facility] Internal Medicine Work Phone: MCHC Auto mass conc (RBC) 32.8 {g/gl} Normal 32-36 [facility] Internal [facility] Work Phone: MCV Auto Entitic volume (RBC) 83.3 fL Normal 81-99 [facility] Work Phone: Monocytes/100 WBC Auto (Bld) 7.0 % Normal 0-10 [facility] Internal [facility] Work Phone: Monocytes/100 WBC Auto (Bld) 7.0 % Normal 0-10 [facility] Internal Medicine Work Phone: Neutrophils/100 WBC Auto (Bld) 56.1 % Normal 47-70 [facility] Internal [facility] Work Phone: Platelet mean volume Auto Entitic volume (Bld) 9.2 fL Normal 6.2-12.0 [facility] Internal Medicine Work Phone: Platelets Auto #/vol (Bld) 220 10*3/uL Normal 150-450 [facility] Work Phone: RBC Auto #/vol (Bld) 4.61 {M/mm3} Normal 4.2-5.4 [facility] Work Phone: RDW SD 41.2 fL Normal 35.1-43.9 [facility] Internal Medicine Work Phone: WBC Auto #/vol (Bld) 6.7 10*3/uL Normal 4.4-11.0 [facility] prehensive Internal Medicine Work Phone: CBC W/Diff, Automated 41.2 fL Normal 35.1-43.[address] [facility] [address] Work Phone: CBC W/Diff, Automated 0.000 % Normal 0.0-0.[address] [facility] [address] [facility] Work Phone: Comment on above: IG% - Immature Granu locytes (promyelocytes, myelocytes andmetamyelocytes) > 1% indicates that a LEFT SHIFT is Present. CBC W/Diff, Automated 3.8 {X10_3/uL} Normal 2.0-7.7 [facility] Internal Medicine Work Phone: CBC W/Diff, Automated 2.28 {X10_3/ul} Normal 0.83-4.51 [facility] Internal Medicine Work Phone: Comprehensive Metabolic Prof ilon 01-07-2018 Comprehensive metabolic 2000 panel 1.3 {RATIO} Normal 0.9-2.4 [facility]pre[facility] Work Phone: Comprehensive metabolic 2000 panel 19.3 {RATIO} Normal 10-20 [facility] Work Phone: Comprehensive metabolic 2000 panel 142 mmol/L Normal 136-145 [facility] Work Phone: Comprehensive metabolic 2000 panel 7.1 g/dL Normal 6.4-8.2 [facility] Work Phone: Comprehensive metabolic 2000 panel 4.0 g/dL Normal 3.2-5.0 [facility] Work Phone: Comprehensive metabolic 2000 panel 3.1 g/dL Normal 2.2-4.2 [facility] Work Phone: Comprehensive metabolic 2000 panel 93 mL/min Normal [facility] Work Phone: Comment on above: Non- GFR Calc Comprehensive metabolic 2000 panel 21.0 mmol/L Normal 21.0-32.0 [facility] Work Phone: Comprehensive metabolic 2000 panel 0.78 mg/dL Normal 0.55-1.02 [facility] Work Phone: Comment on above: The validity of the calculated GFR AND GFRAA in patients over70 years has not been determined. Clinical correlation isessential. Comprehensive metabolic 2000 panel 8.7 mg/dL Normal 8.5-10.1 [facility] Work Phone: Comprehensive metabolic 2000 panel 0.30 mg/dL Normal 0.20-1.00 [facility] Work Phone: Comprehensive metabolic 2000 panel 16 U/L Normal 13-56 [facility] Work Phone: Comprehensive metabolic 2000 panel 15 mg/dL Normal 7-18 [facility] Work Phone: Comprehensive metabolic 2000 panel 11 U/L Abnormal 15-37 [facility] Work Phone: Comprehensive metabolic 2000 panel 85 mg/dL Normal 74-106 [facility] Work Phone: Comment on above: Please note revised GLUCOSE reference range ssobskenn83/02/2018. Comprehensive metabolic 2000 panel 112 mmol/L Abnormal 98-107 [facility] Work Phone: Comprehensive metabolic 2000 panel 3.5 mmol/L Normal 3.5-5.1 [facility] Work Phone: Comprehensive metabolic 2000 panel 113 mL/min Normal Compre[facility]si [facility] Work Phone: Comment on above: GFR Calc Comprehensive metabolic 2000 panel 71 U/L Normal 45-117 [facility] Work Phone: Comprehensive metabolic 2000 panel 88.03 ml/min Normal [facility] Work Phone: Comprehensive metabolic 2000 panel 9 1 Normal 5-15 [facility] Work Phone: ,Serum,hCG Quali.on 01-07-2018 HCG Qual triggr < 1 Normal [facility] Work Phone: HCGSQUAL Negative Normal 0-9 Nonpreg [facility] Work Phone: ,Serum,hCG Quali. < 1 Normal [facility] Work Phone: ,Serum,hCG Quali. Negative Normal 0-9 Nonpreg [facility] Work Phone: Urinalysis, Completeon 01-07 CLARITY Cloudy Normal [facility] Work Phone: COLOR Yellow Normal [facility] Work Phone: GLUCOSE, UR Normal Normal [facility] Work Phone: LEUK ESTERASE 100 /ul Abnormal Comprehensi ve Internal Medicine Work Phone: MUCUS, URINE 1+ Normal Comprehensiv e Internal Medicine Work Phone: NITRITE UR Negative Normal [facility] Work Phone: OCCULT BLOOD-UR 10 /ul Abnormal Comprehen sive Internal Medicine Work Phone: pH UR 7.0 1 Normal 5.0 - 8.0 [facility] Work Phone: PROT DIPSTX 15 mg/dL Abnormal [facility] Work Phone: RBC Test strip #/vol (U) 0 SEEN Normal 0-5 [facility] Work Phone: SP.GR. DIPSTX 1.015 1 Normal 1.002-1.03 0 [facility] Work Phone: WBC 5-10 SEEN Normal 5-10 [facility] Work Phone: ,Serum,hCG Quali.on 11-10-2017 HCG Qual triggr < 1 Normal Comprehen sive Internal Medicine Work Phone: HCGSQUAL Negative Normal 0-9 Nonpreg [facility] Work Phone: ,Serum,hCG Quali. Negative Normal 0-9 Nonpreg [facility] Work Phone: ,Serum,hCG Quali. < 1 Normal [facility] Work Phone: Basic Metabolic Profile (BMP )on 11-03-2017 Basic metabolic 2000 panel 142 mmol/L Normal 136-145 [facility] Work Phone: Basic metabolic 2000 panel 11 mg/dL Normal 7-18 [facility] Work Phone: Basic metabolic 2000 panel 0.74 mg/dL Normal 0.55-1.02 [facility] Work Phone: Comment on above: The validity of the calculated GFR AND GFRAA in patients over70 years has not been determined. Clinical correlation isessential. Basic metabolic 2000 panel 92.79 ml/min Normal [facility] Work Phone: Basic metabolic 2000 panel 84 mg/dL Normal 74-106 [facility] Work Phone: Comment on above: Please note revised GLUCOSE reference range epaktytln96/02/2018. Basic metabolic 2000 panel 8.6 mg/dL Normal 8.5-10.1 [facility] Work Phone: Basic metabolic 2000 panel 98 mL/min Normal [facility] Work Phone: Comment on above: Non- GFR Calc Basic metabolic 2000 panel 3.6 mmol/L Normal 3.5-5.1 [facility] Work Phone: Basic metabolic 2000 panel 111 mmol/L Abnormal 98-107 [facility] Work Phone: Basic metabolic 2000 panel 22.0 mmol/L Normal 21.0-32.0 [facility] Work Phone: Basic metabolic 2000 panel 9 1 Normal 5-15 [facility] Work Phone: Basic metabolic 2000 panel 119 mL/min Normal [facility] Work Phone: Comment on above: GFR Calc Basic metabolic 2000 panel 14.8 {RATIO} Normal 10-20 [facility] Work Phone: CBC W/Diff, Automatedon 07-0 Absolute Lymph 1.51 {X10_3/ul} Normal 0.83-4.51 Compr ehensive [facility] Work Phone: Absolute Neut 4.6 {X10_3/uL} Normal 2.0-7.7 Compreh ensive [facility] Work Phone: Basophils/100 WBC Auto (Bld) 0.3 % Normal 0-1 [facility] Work Phone: Eosinophils/100 WBC Auto (Bld) 1.8 % Normal 0-5 [facility] Work Phone: Erythrocyte distribution width Auto Ratio (RBC) 13.6 % Normal 11.6-14.6 [facility] Work Phone: Hematocrit Auto Volume Fraction (Bld) 37.8 % Normal 37-47 [facility] Work Phone: Hemoglobin mass conc (Bld) 12.2 g/dL Normal 12.0-15.0 [facility] Work Phone: IM GRAN % 0.000 % Normal 0.0-0.9 [facility] Medicine Work Phone: Comment on above: IG% - Immature Granu locytes (promyelocytes, myelocytes andmetamyelocytes) > 1% indicates that a LEFT SHIFT is Present. Lymphocytes/100 WBC Auto (Bld) 22.4 % Normal 19-41 [facility] Work Phone: MCH Auto Entitic mass (RBC) 26.9 pg Abnormal 27.0-32.0 [facility] Internal Medicine Work Phone: MCHC Auto mass conc (RBC) 32.3 {g/gl} Normal 32-36 [facility] Work Phone: MCV Auto Entitic volume (RBC) 83.3 fL Normal 81-99 [facility] Work Phone: Monocytes/100 WBC Auto (Bld) 6.8 % Normal 0-10 [facility] Internal Medicine Work Phone: Monocytes/100 WBC Auto (Bld) 6.8 % Normal 0-10 [facility] Work Phone: Neutrophils/100 WBC Auto (Bld) 68.7 % Normal 47-70 [facility] Internal Medicine Work Phone: Platelet mean volume Auto Entitic volume (Bld) 9.3 fL Normal 6.2-12.0 [facility] Internal Medicine Work Phone: Platelets Auto #/vol (Bld) 225 10*3/uL Normal 150-450 [facility] Internal Medicine Work Phone: RBC Auto #/vol (Bld) 4.54 {M/mm3} Normal 4.2-5.4 [facility] Internal Medicine Work Phone: RDW SD 41.5 fL Normal 35.1-43.9 [facility] Internal Medicine Work Phone: WBC Auto #/vol (Bld) 6.7 10*3/uL Normal 4.4-11.[address] [facility] Work Phone: CBC W/Diff, Automated 41.5 fL Normal 35.1-43.9 [facility] Internal Medicine Work Phone: CBC W/Diff, Automated 1.51 {X10_3/ul} Normal 0.83-4.51 [facility] Internal Medicine Work Phone: CBC W/Diff, Automated 4.6 {X10_3/uL} Normal 2.0-7.7 [facility] Internal Medicine Work Phone: CBC W/Diff, Automated 0.000 % Normal 0.0-0.9 [facility] Internal Medicine Work Phone: Comment on above: IG% - Immature Granu locytes (promyelocytes, myelocytes andmetamyelocytes) > 1% indicates that a LEFT SHIFT is Present. Lamotrigine (Lamictal) Level on 11-03-2017 Lamotrigine mass conc 4.5 ug/mL Normal 2.0-20.0 [facility] Internal Medicine Work Phone: Comment on above: Detection Limit = 1. 0Performed at: BN - [facility] [address] [place], [place] [id number] Director: Oscar Lynn MD, Phone: [phone] Magnesiumon 11-03-2017 Magnesium mass conc 1.9 mg/dL Normal 1.6-2.6 Compr ens[facility] Work Phone: Phosphoruson 11-03-2017 Phosphate mass conc 2.7 mg/dL Normal 2.5-4.9 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 This morning shewas in her usual state of health, hit herself in the eye with a blood pressurecuff, the sharper edge with stitching. Immediate pain and tearing afterwards,feels like there is sand in her eye. She has difficulty opening her eyes, feelslike she got punched in the eye, also with double vision. She does not wearcontacts. Allergic to keppra and penicillin. This morning she took alieve forheadache.Review of SystemsConstitutional: Negative for activity change and fever.Eyes: Positive for pain, discharge, redness and visual disturbance.History reviewed. No pertinent past medical history.History reviewed. No pertinent surgical history.Pediatric HistoryPatient Guardian Status Father: Karen FlanaganOther Topics Concern Not on fileSocial History Narrative No narrative on fileED Triage VitalsDate and Time Temp Temp src Pulse Resp BP SpO2 Weight 08/24/17 0710 37.1 C (98.8 F) Temporal 106 20 119/67 -- 62.6 kg SSBPhysical ExamConstitutional: She is oriented to person, place, and time. She appearswell-developed and well-nourished. No distress.HENT:Head: Normocephalic and atraumatic.Right eye erythematous with tearing present, fluorescein eye stain performedwith horizontal linear superficial laceration across cornea.Neurological: She is alert and oriented to person, place, and time.Skin: Skin is warm and dry.ProceduresMDMED Course:Diagnosis' considered: corneal abrasionLabs/Radiology:C onsults: No orders of the defined types were placed in this encounter.Medical Record/Transferring Institution Record:Treatment/Reasses sment: afebrile and hemodynamically stable on presentation tot ED. Right eye injury occurred 1 hour prior to presentation. Fluorescin eyestain performed with tetracaine, revealed linear abrasion to right cornea.Prescribed polytrim x5 days, instructed to follow up with PCP tomorrow forreevaluation.Diagnosi s to highest level of medical certainty/plan:Final diagnoses:[S05.01XA] Abrasion of right cornea, initial encounterStasrinivas Schultz [facility] Resident, PGY-304/8:23 AMAttending Notes:Resident's notes were reviewed and I have edited the notes with strike throughto reflect the accuracy of the notes, additional notes have been added under myheading.I have discussed and performed the history and findings of the resident.The RN notes, vitals and pertinent old records have been reviewed by me.Differential diagnosis and management options were discussed with the resident,as part of their education and with the family before they were carried out.Management plans were modified as needed. All questions were answered and the family/patient/society reporter were encouraged toask questions.Review:History :Watery itchy eyesNo FB injuryNo uri at workEOMINo infection no pain on palpation of lids Active alert no distressTM clearNodes noneNeck supple is well hydrated, non toxic,neuro neurologically intact and is appropriate per age.cardio normal cvs normal with adequate perfusion lungs clearlungs with no distress-no rash-abd no masses or pain noted.Plan:Corneal abrasiontreat Normal [facility] Human Herpsvirus 6 (HHV-6) A salina mohan ([id number])on 06-04-2017 Herpes virus 6 IgG Ql (S) 6.10 {index} Abnormal [facility] Work Phone: Comment on above: Negative <0.76 Equiv ocal 0.76 - 0.99 Positive >0.99 Results for this test are for research purposes only by the assay's ships or barges loader. The performance characteristics of this product have not been established. Results should not be used as a diagnostic procedure without confirmation of the diagnosis by another medically established diagnostic product or procedure. PATIENT NOT FASTINGP ERFORMED BY: Overdog Sadpnvtibm9394 [facility] [id number] Human Herpsvirus 6 (HHV-6), [facility] (09896)on 06-04-2017 Herpes virus 6 IgM IF titer (S) <1:10 Normal [facility] Work Phone: Comment on above: This test was develo ped and its performance characteristicsdetermined by Overdog. It has not been cleared or approvedby the Food and Drug Administration. PATIENT NOT FASTINGP ERFORMED BY: Overdog Ayvwajmfao2587 [facility] [id number] EFE (ANTINUCLEAR ANTIBODY) ( 57469)on 05-31-2017 Nuclear Ab Ql (S) Negative Normal Compreh ensive [facility] Work Phone: Comment on above: PATIENT NOT FASTINGP ERFORMED BY: Pangalore6370 [address] Kingland CompaniesDublin [place] [id number] EFE (ANTINUCLEAR ANTIBODY) ( [id number])Ordered By: Position Classifier on 05-31-2017 Nuclear Ab Ql (S) Negative Normal Compreh ensive [facility]; [facility] Work Phone: Comment on above: PATIENT NOT FASTINGP ERFORMED BY: Pangalore6370 [address] Kingland CompaniesDublin [place] [id number] C-REACTIVE PROTEIN (91175)Or dered By: Position Classifier on 05-31-2017 CRP [Mass/Vol] mg/L Normal 0.0-4.9 [facility]; [facility] Work Phone: Comment on above: PATIENT NOT FASTINGP ERFORMED BY: OpTier6370 Steven RoadDublin [place] [id number] C-REACTIVE PROTEIN (88309)on 05-31-2017 CRP mass conc mg/L Normal 0.0-4.9 Comprehensi [facility] Work Phone: Comment on above: PATIENT NOT FASTINGP ERFORMED BY: JORGE FireBlade70 CreatorBoxAtrium Health [id number] CALCIFIDIOL (26084) VIT D 25 on 05-31-2017 25-Hydroxyvitamin D2+25-Hydroxyvitamin D3 mass conc 19.4 ng/mL Abnormal 30.0-100.0 [facility] Internal Medicine Work Phone: Comment on above: Vitamin D deficiency has been defined by the [place] ofMedicine and an Endocrine Society practice guideline as alevel of serum 25-OH vitamin D less than 20 ng/mL (1,2).The Endocrine Society went on to further define vitamin Dinsufficiency as a level between 21 and 29 ng/mL (2).1. IOM ([place] of Medicine). 2010. Dietary reference intakes for calcium and D. [place]: The National Academies Press.2. Solange MF, Maximiliano GARCIA, Earle BOURNE, et al. Evaluation, treatment, and prevention of vitamin D deficiency: an Endocrine Society clinical practice guideline. JCEM. 2010; 96(7):1911-30. PATIENT NOT FASTINGP ERFORMED BY: JORGE Pangalore6370 [facility]BoxAt[facility] [id number] CBC (AUTO) (62441)on 018 Erythrocyte distribution width Auto Ratio (RBC) 14.5 % Normal 12.3-15.4 [facility] Work Phone: Hematocrit Auto Volume Fraction (Bld) 36.3 % Normal 34.0-46.6 [facility] Work Phone: Hemoglobin mass conc (Bld) 12.1 g/dL Normal 11.1-15.9 [facility] Work Phone: Comment on above: PATIENT NOT FASTINGP ERFORMED BY: OpTier6370 [facility] [id number] MCH Auto Entitic mass (RBC) 26.9 pg Normal 26.6-33.0 [facility] Work Phone: MCHC Auto mass conc (RBC) 33.3 g/dL Normal 31.5-35.7 [facility] Work Phone: MCV Auto Entitic volume (RBC) 81 fL Normal 79-97 [facility] Work Phone: Platelets Auto #/vol (Bld) 310 {x10E3/uL} Normal 150-379 [facility] Work Phone: RBC Auto #/vol (Bld) 4.50 {x10E6/uL} Normal 3.77-5.28 [facility] Work Phone: WBC Auto #/vol (Bld) 8.5 {x10E3/uL} Normal 3.4-10.8 [facility] Work Phone: CBC (AUTO) (11951)Ordered By : Position Classifier on 05-31-2017 Erythrocyte distribution width Ratio (RBC) 14.5 % Normal 12.3-15.4 [facility] Work Phone: Comment on above: PATIENT NOT FASTINGP ERFORMED BY: OpTier6370 PoshVineSaint [facility] [place] [id number] Hematocrit Volume Fraction (Bld) 36.3 % Normal 34.0-46.6 [facility] Work Phone: Comment on above: PATIENT NOT FASTINGP ERFORMED BY: [employer] LabSanarus Medicalrp Qzhwmo7224 [address] [employer], Inc.bl[place] [id number] MCH Entitic mass (RBC) 26.9 pg Normal 26.6-33.0 [facility] Internal [facility] Work Phone: Comment on above: PATIENT NOT FASTINGP ERFORMED BY: [employer] LabSanarus Medicalrp Lhkqwg5387 [address] [employer]bl[place] [id number] MCHC mass conc (RBC) 33.3 g/dL Normal 31.5-35.7 [facility] Internal Medicine Work Phone: Comment on above: PATIENT NOT FASTINGP ERFORMED BY: GOVECS Gvkkbt8783 Steven [employer] Inc.bl[place] [id number] MCV Entitic volume (RBC) 81 fL Normal 79-97 [facility] Work Phone: Comment on above: PATIENT NOT FASTINGP ERFORMED BY: CB [facility] Hpvxsi5977 Steven RoadDublin [place] [id number] Platelets #/vol (Bld) 310 {x10E3/uL} Normal 150-379 [facility] Work Phone: Comment on above: PATIENT NOT FASTINGP ERFORMED BY: CB [facility] Tgbopb8477 Steven RoadDublin [place] [id number] Platelets (Bld) [#/Vol] 310 10*3/uL Normal 150-379 [facility]; [facility] Work Phone: Comment on above: PATIENT NOT FASTINGP ERFORMED BY: CB [facility] Tlajuk2579 Steven RoadDublin [place] [id number] RBC #/vol (Bld) 4.50 {x10E6/uL} Normal 3.77-5.28 Comp [facility] Work Phone: Comment on above: PATIENT NOT FASTINGP ERFORMED BY: CB [facility] Doazsx1541 Steven RoadDublin [place] [id number] RBC (Bld) [#/Vol] 4.50 10*6/uL Normal 3.77-5.28 Compr ensive [facility]; [facility] Work Phone: Comment on above: PATIENT NOT FASTINGP ERFORMED BY: CB [facility] Bywfvc5937 Steven RoadDublin [place] [id number] WBC #/vol (Bld) 8.5 {x10E3/uL} Normal 3.4-10.8 Compr ens[facility] Work Phone: Comment on above: PATIENT NOT FASTINGP ERFORMED BY: CB [facility] Luxyqr3723 Steven RoadDublin [place] [id number] WBC (Bld) [#/Vol] 8.5 10*3/uL Normal 3.4-10.8 Compre [facility]; [facility] Work Phone: Comment on above: PATIENT NOT FASTINGP ERFORMED BY: CB [facility] Mfmbdv6747 Steven RoadDublin [place] [id number] CMV IGM ANTBDY (50552)on CMV IgM IA Qn <30.0 Normal 0.0-29.9 Comprehensi [facility] Work Phone: Comment on above: Negative <30.0 Equiv ocal 30.0 - 34.9 Positive >34.9 A positive result is generally indicative of acute infection, reactivation or persistent IgM production. PATIENT NOT FASTINGP ERFORMED BY: JORGE FireBlade70 StevenMyDream InteractiveAtrium Health [id number] EBV Panel ([id number])on 05-31-19 18 EBV capsid IgG IA Qn (S) 99.6 U/mL Abnormal 0.0-17.9 [facility] Work Phone: Comment on above: Negative <18.0 Equiv ocal 18.0 - 21.9 Positive >21.9 PATIENT NOT FASTINGP ERFORMED BY: [employer] StevenMyDream InteractiveAtrium Health [id number] EBV capsid IgM IA Qn (S) <36.0 Normal 0.0-35.9 [facility] Work Phone: Comment on above: Negative <36.0 Equiv ocal 36.0 - 43.9 Positive >43.9 PATIENT NOT FASTINGP ERFORMED BY: FireBlade70 StevenOpen UtilityMission Family Health Center [id number] EBV early IgG Qn (S) <9.0 Normal 0.0-8.9 Comp rehensive [facility] Medicine Work Phone: Comment on above: Negative < 9.0 Equiv ocal 9.0 - 10.9 Positive >10.9 PATIENT NOT FASTINGP ERFORMED BY: Employyd.comrp Oukczx2849 Steven Kingland CompaniesMission Family Health Center [id number] EBV nuclear IgG IA Qn (S) 249.0 U/mL Abnormal 0.0-17.9 [facility] Work Phone: Comment on above: Negative <18.0 Equiv ocal 18.0 - 21.9 Positive >21.9 PATIENT NOT FASTINGP ERFORMED BY: [employer] Nzggip8936 [facility] [id number] Service comment Interp (Unsp spec) [facility] Normal [facility] Work Phone: Comment on above: EBV Interpretation C marcial . Interpretation EBV-IgM EA(D)-IgG VCA-IgG EBNA-IgG . EBV Seronegative - - - - Early Phase + - - - Acute Primary + +or- + - Infection Convalescence/Past - +or- + + Infection Reactivated +or- + + + Infection + Antibody Present - Antibody Absent PATIENT NOT FASTINGP ERFORMED BY: ZymetisAtrium Health [id number] Folate (64299)on 05-31-2017 Folate mass conc 5.9 ng/mL Normal Comprehe nsive Internal Medicine Work Phone: Comment on above: A serum folate stephon ntration of less than 3.1 ng/mL isconsidered to represent clinical deficiency. PATIENT NOT FASTINGP ERFORMED BY: iexerci.se [place] [id number] Hemoglobin A1con 05-31-2017 Hemoglobin A1c/Hemoglobin.total mass fraction (Bld) 4.8 % Normal 4.8-5.6 Comprehensiv e Internal Medicine Work Phone: Comment on above: . Pre-diabetes: 5.7 - 6.4 Diabetes: >6.4 Glycemic control for adults with diabetes: <7.0 METABOLIC PANEL, COMPREHENSI VE (84432)on 05-31-2017 Albumin mass conc 4.9 g/dL Normal 3.5-5.5 Compreh ensive [facility] Work Phone: Comment on above: PATIENT NOT FASTINGP ERFORMED BY: Neura70 CreatorBoxAtrium Health [id number] Albumin/Globulin mass ratio 2.0 {ratio} Normal 1.2-2.2 [facility] Work Phone: Comment on above: PATIENT NOT FASTINGP ERFORMED BY: Neura70 CreatorBoxAtrium Health [id number] ALP enzyme act/vol 78 [iU]/L Normal 39-117 Compre hensive Internal Medicine Work Phone: Comment on above: PATIENT NOT FASTINGP ERFORMED BY: CB [facility] Ibxjmx8271 Steven RoadDublin [place] [id number] ALT enzyme act/vol 13 [iU]/L Normal 0-32 [facility] Work Phone: Comment on above: PATIENT NOT FASTINGP ERFORMED BY: CB [facility] Zoeisi2495 [address] RoadDublin [place] [id number] AST enzyme act/vol 14 [iU]/L Normal 0-40 [facility] Work Phone: Comment on above: PATIENT NOT FASTINGP ERFORMED BY: CB [facility] Ccnegz6775 Steven RoadDublin [place] [id number] Bilirubin mass conc mg/dL Normal 0.0-1.2 Compr ensive [facility] Medicine Work Phone: Comment on above: PATIENT NOT FASTINGP ERFORMED BY: JORGE [facility] Jvawoa1118 Steven RoadDublin [place] [id number] Calcium mass conc 9.9 mg/dL Normal 8.7-10.2 Compreh [facility] healthive [facility] Work Phone: Comment on above: PATIENT NOT FASTINGP ERFORMED BY: CB [facility] Nnumgm3700 Steven RoadDublin [place] [id number] Chloride molar conc 106 mmol/L Normal 96-106 Compr [facility] Internal Medicine Work Phone: Comment on above: PATIENT NOT FASTINGP ERFORMED BY: JORGE [facility] Inckxd3494 Steven RoadDublin [place] [id number] CO2 molar conc 21 mmol/L Normal 18-29 Comprehens [facility] Internal Medicine Work Phone: Comment on above: PATIENT NOT FASTINGP ERFORMED BY: CB [facility] Djosld7210 [address] RoadDublin [place] [id number] Creatinine mass conc 0.78 mg/dL Normal 0.57-1.00 Comp [facility] Work Phone: Comment on above: PATIENT NOT FASTINGP ERFORMED BY: CB [facility] Upjfqm7034 Steven RoadDublin [place] [id number] GFR/1.73 sq M predicted among blacks CKD-EPI vol rate/area (S/P/Bld) 120 mL/min/1.73 Normal [facility] Work Phone: Comment on above: PATIENT NOT FASTINGP ERFORMED BY: JORGE LabMark Granger6370 [facility] [id number] GFR/1.73 sq M predicted among non-blacks CKD-EPI vol rate/area (S/P/Bld) 104 mL/min/1.73 Normal Comprehensiv e Internal Medicine Work Phone: Comment on above: PATIENT NOT FASTINGP ERFORMED BY: JORGE LabCo Utqxmh6990 [facility] [id number] Globulin Calculated mass conc (S) 2.4 g/dL Normal 1.5-4.5 [facility] Work Phone: Glucose mass conc 109 mg/dL Abnormal 65-99 Compreh ensive Internal Medicine Work Phone: Comment on above: PATIENT NOT FASTINGP ERFORMED BY: JORGE Amador Storeylin6370 [facility] [id number] Potassium molar conc 3.7 mmol/L Normal 3.5-5.2 Comp rehensive Internal Medicine Work Phone: Comment on above: PATIENT NOT FASTINGP ERFORMED BY: JORGE Storeylin6370 [facility] [id number] Protein mass conc 7.3 g/dL Normal 6.0-8.5 Compreh ensive Internal Medicine Work Phone: Comment on above: PATIENT NOT FASTINGP ERFORMED BY: JORGE LabDanae Oyikde6985 [facility] [id number] Sodium molar conc 141 mmol/L Normal 134-144 Compreh ensive Internal Medicine Work Phone: Comment on above: PATIENT NOT FASTINGP ERFORMED BY: JORGE LabCo Vtkciy2711 [facility] [id number] Urea nitrogen mass conc 18 mg/dL Normal 6-20 [facility] Work Phone: Comment on above: PATIENT NOT FASTINGP ERFORMED BY: JORGE LabCo Azcusy0781 [facility] Hospitalblin [place] [id number] Urea nitrogen/Creatinine mass ratio 23 mg/mg Normal 9-23 [facility] Work Phone: Comment on above: PATIENT NOT FASTINGP ERFORMED BY: JORGE Granger6370 [address] RoadDublin [place] [id number] METABOLIC PANEL, COMPREHENSI VE (05125)Ordered By: Position Classifier on 05-31-2017 ALP [Catalytic activity/Vol] 78 U/L Normal 39-117 [facility]; [facility] Work Phone: Comment on above: PATIENT NOT FASTINGP ERFORMED BY: JORGE LabMark StoreyCikupv2476 Steven Roadblin [place] [id number] ALT [Catalytic activity/Vol] 13 U/L Normal 0-32 [facility]; [facility] Work Phone: Comment on above: PATIENT NOT FASTINGP ERFORMED BY: JORGE Analiadri StoreyOatmge5636 [address] [facility] Centerin [place] [id number] AST [Catalytic activity/Vol] 14 U/L Normal 0-40 [facility]; [facility] Work Phone: Comment on above: PATIENT NOT FASTINGP ERFORMED BY: JORGE Analiadri Gbsmmj5986 Steven HealthSouth Rehabilitation Hospitalblin [place] [id number] Bilirubin [Mass/Vol] mg/dL Normal 0.0-1.2 Comp rehensive Internal Medicine; [facility] Work Phone: Comment on above: PATIENT NOT FASTINGP ERFORMED BY: JORGE LabDanaeadri Ppdmgb8021 Steven RoadCritical Access Hospitalin [place] [id number] Globulin mass conc (S) 2.4 g/dL Normal 1.5-4.5 Co [facility] centerehensive Internal Medicine Work Phone: Comment on above: PATIENT NOT FASTINGP ERFORMED BY: JORGE BrandinCoadri Vjpgnz0817 [address] [facility] Centerin [place] [id number] RHEUMATOID FACTOR-QUANT (864 31)on 05-31-2017 Rheumatoid factor Qn [IU]/mL Normal 0.0-13.9 Comp rehensive Internal Medicine Work Phone: Comment on above: PATIENT NOT FASTINGP ERFORMED BY: JORGE [facility] Ltmuwq0193 Steven RoadDublin [place] [id number] RHEUMATOID FACTOR-QUANT (404 31)Ordered By: Position Classifier on 05-31-2017 Rheumatoid factor Qn [IU]/mL Normal 0.0-13.9 Comp rehensive Internal Medicine; [facility] Work Phone: Comment on above: PATIENT NOT FASTINGP ERFORMED BY: JORGE [facility] Xiycwp9008 Steven RoadDublin [place] [id number] SED RATE ERYTHROCYTE ([id number]) on 05-31-2017 ESR Velocity (Bld) 13 mm/h Normal 0-32 Compre [facility] Internal Medicine Work Phone: Comment on above: PATIENT NOT FASTINGP ERFORMED BY: JORGE [facility] Hwfbpp9868 Steven RoadDublin [place] [id number] TSH (95092)on 05-31-2017 Thyrotropin Qn 2.320 {uIU/mL} Normal 0.450-4.50 0 [facility] Work Phone: Comment on above: PATIENT NOT FASTINGP ERFORMED BY: JORGE [facility] Ueaqzd0945 Steven RoadDublin [place] [id number] VITAMIN B-12 (CYANOCOBALAMIN ) (52159)on 05-31-2017 Cobalamin (Vitamin B12) mass conc 556 pg/mL Normal 232-1245 [facility] Work Phone: Comment on above: PATIENT NOT FASTINGP ERFORMED BY: CB [facility] Rtroin1151 Steven RoadDublin [place] [id number] Written Authorizationon 05-04 Written Authorization WAR Normal Com prehensive Internal Medicine Work Phone: Comment on above: Written Authorizatio n Received.Authorization received from HIRA MTZ RN [id number] by Skylar Ramos Basic Panelon 12-17-2016 Creatinine 0.68 mg/dL Normal 0.51-0.95 [facility] Comment on above: Performed By: #### P 8 ####[place] [address] Anion gap 11 mmol/L Normal 8-16 [facility] Comment on above: Performed By: #### P 8 ####[facility] [place], [place] [address] Calcium 8.4 mg/dL Low 8.5-10.1 [facility] Comment on above: Performed By: #### P 8 ####[address] [address] CO2 20 mmol/L Low 21-32 [facility] Comment on above: Performed By: #### P 8 ####[address] [address] Glucose mass conc 84 mg/dL Normal 70-99 [facility] Comment on above: Performed By: #### P 8 ####[address] [address] Urea nitrogen 10 mg/dL Normal 7-18 [facility] Comment on above: Performed By: #### P 8 ####[address] [address] Chloride 113 mmol/L High 98-107 [facility] Comment on above: Performed By: #### P 8 ####[address] [address] Potassium molar conc 3.4 mmol/L Low 3.5-5.1 [facility] Comment on above: Performed By: #### P 8 ####[address] [address] Sodium 141 mmol/L Normal 136-145 [facility] Comment on above: Performed By: #### P 8 ####[address] [address] Hemogram/Diffon 12-17-2016 Basophils Auto #/vol (Bld) 0.04 thou/cmm Normal 0.01-0.08 [facility] Comment on above: Performed By: #### C BCD1 ####[address] [address] Basophils/100 WBC Auto (Bld) 0.4 % Normal [facility] Comment on above: Performed By: #### C BCD1 ####[facility] [place] [address] Eosinophils 0.06 thou/cmm Normal 0.00-0.31 [facility] Comment on above: Performed By: #### C BCD1 ####[place] [address] Eosinophils/100 leukocytes 0.6 % Normal [facility] Comment on above: Performed By: #### C BCD1 ####[place] [address] Erythrocyte distribution width Auto Ratio (RBC) 13.5 % Normal 11.7-14.4 [facility] Comment on above: Performed By: #### C BCD1 ####[place] [address] Erythrocytes (RBC) 4.01 mil/cmm Normal 3.93-5.22 [facility] Comment on above: Performed By: #### C BCD1 ####[place] [address] Hematocrit (HCT) 32.7 % Low 34.1-44.9 [facility] Comment on above: Performed By: #### C BCD1 ####[place] [address] Hemoglobin mass conc (Bld) 10.8 g/dL Low 11.2-15.7 [facility] Comment on above: Performed By: #### C BCD1 ####[place] [address] Immature Grans 0.50 % Normal [facility] Comment on above: Performed By: #### C BCD1 ####[place] [address] Immature Grans # 0.05 thou/cmm Normal 0.00-0.05 [facility] Comment on above: Performed By: #### C BCD1 ####[place] [address] Lymphocytes 1.15 thou/cmm Low 1.18-3.74 [facility] Comment on above: Performed By: #### C BCD1 ####[facility] [place], [place] [address] Lymphocytes/100 leukocytes 10.8 % Normal [facility] Comment on above: Performed By: #### C BCD1 ####[facility] [place], [place] [address] MCH 26.9 pg Normal 25.6-32.2 [facility] Comment on above: Performed By: #### C BCD1 ####[address] [address] MCHC mass conc (RBC) 33.0 % Normal 31.6-34.8 [facility] Comment on above: Performed By: #### C BCCara ####[place] [address] MCV 81.5 fL Normal 79.4-94.8 [facility] Comment on above: Performed By: #### C BCCara ####[place] [address] Monocytes 0.65 thou/cmm Normal 0.27-0.70 [facility] Comment on above: Performed By: #### C BCD1 ####[place] [address] Monocytes/100 leukocytes 6.1 % Normal [facility] Comment on above: Performed By: #### C BCCara ####[address] [address] Platelet mean volume (PMV) 9.2 fL Low 9.4-12.3 [facility] Comment on above: Performed By: #### C BCD1 ####[address] [address] Platelets 256 thou/cmm Normal 182-369 [facility] Comment on above: Performed By: #### C BCD1 ####[place] [address] RDW SD 40.1 fl Normal 36.4-46.3 [facility] Comment on above: Performed By: #### C BCD1 ####[place] [address] Seg Neutrophil 81.6 % Normal [facility] Comment on above: Performed By: #### C BCD1 ####[address] [address] Seg. Neut.# 8.72 thou/cmm High 1.56-6.13 [facility] Comment on above: Performed By: #### C BCD1 ####[address] [address] WBC (Leukocytes) 10.69 thou/cmm High 3.98-10.04 [facility] Comment on above: Performed By: #### C BCD1 ####[place] [id number] MDRD GFRon 12-17-2016 eGFR (non-black) mL/min/{1.73_m2} Normal >60mL/m in/ 1.73m2 [facility] Comment on above: Result Comment: If t he patient is , multiply the result by 1.210. Performed By: #### G FR ####[address] [address] Magnesium Bloodon 12-17-2016 Magnesium 1.9 mg/dL Normal 1.6-2.6 [facility] Comment on above: Performed By: #### M AG ####[address] [address] Phosphorus Bloodon 7 Phosphate 1.9 mg/dL Critically low 2.5-4.9 [facility] Comment on above: Result Comment: RESU LT RECHECKED Performed By: #### P HOS ####[address] [address] Urinalysis Routineon 017 Bilirubin Urine see below Abnormal Negative [facility] Comment on above: Result Comment: Dete cted (Unable to confirm). Performed By: #### U RIN2 ####[address] [address] Hemoglobin,Urine Negative Normal Negative [facility] Comment on above: Performed By: #### U RIN2 ####[facility] [place], [place] [address] Ketone Urine 40 mg/dL Abnormal Negative [facility] Comment on above: Performed By: #### U RIN2 ####[facility] [place], [place] [address] Nitrites Urine Negative Normal Negative [facility] Comment on above: Performed By: #### U RIN2 ####[facility] [place], [place] [address] Protein Urine TRACE Abnormal Negative [facility] Comment on above: Performed By: #### U RIN2 ####[address] [address] Specific [place], Ur 1.023 Normal 1.005-1 .03 0 [facility] Comment on above: Performed By: #### U RIN2 ####[address] [address] Urine, appearance CLEAR Normal [facility] Comment on above: Performed By: #### U RIN2 ####[address] [address] Urine, color YELLOW Normal [facility] Comment on above: Performed By: #### U RIN2 ####[address] [address] Urine, glucose presence Negative Normal Negative [facility] Comment on above: Performed By: #### U RIN2 ####[address] [address] Urine, pH 6.0 [pH] Normal 5.0-8.0 [facility] Comment on above: Performed By: #### U RIN2 ####[address] [address] Urobilinogen,Ur 0.2 EU/dL Normal 0.0-1.0 [facility] Comment on above: Performed By: #### U RIN2 ####[address] [address] WBC (Leukocytes) Negative Normal Negative [facility] Comment on above: Performed By: #### U RIN2 ####[address] [address] Ep Cells Urine 1.7 /hpf Normal 0.0-5.0 [facility] Comment on above: Performed By: #### U RIN2 ####[address] [address] Hyaline Cast 0.7 /lpf Normal 0.0-1.0 [facility] Comment on above: Performed By: #### U RIN2 ####[place] [address] Urine, bacteria in sediment NONE Normal None [facility] Comment on above: Performed By: #### U RIN2 ####[place] [address] Urine, erythrocytes in sediment by area 2.1 /[HPF] Normal 0.0-5.0 [facility] Comment on above: Performed By: #### U RIN2 ####[place] [address] Urine, leukocytes in sedmiment 1.5 /[HPF] Normal 0.0-5.0 [facility] Comment on above: Performed By: #### U RIN2 ####[address] [address] Urine HCG, Qual.on 7 HCG.beta subunit ( test) Ql (U) Negative Normal Negative [facility] Comment on above: Performed By: #### H CGUR ####[place] [address] Specific [place], Ur 1.023 Normal 1.005-1 .03 0 [facility] Comment on above: Performed By: #### H CGUR ####[place] [address] PPD ([id number])Ordered By: Uri De La Garza on 03-04-2016 PPD ([id number]) 0 mm Normal [facility] Work Phone: Comment on above: Lot:[id number]:08/17Do se:0.1Route:idSite:agustin Calderon By:LOCO signed Urinalysis, Office ([id number])Or dered By: Prerna De La Garza on 01-31-2016 Bilirubin Ql (U) Negative Normal [facility] Work Phone: Bilirubin Ql (U) Negative Normal [facility]; [facility] Work Phone: Glucose Test strip (U) [Mass/Vol] Negative Normal [facility]; [facility] Work Phone: Glucose Test strip mass conc (U) Negative Normal [facility] Work Phone: Hemoglobin Ql (U) Negative Normal [facility] Work Phone: Hemoglobin Ql (U) Negative Normal [facility]; [facility] Work Phone: Hemoglobin Test strip Ql (U) Negative Normal [facility] Work Phone: Ketones Ql (U) Negative Normal [facility] Work Phone: Ketones Ql (U) Negative Normal [facility]; [facility] Work Phone: Leukocyte esterase Test strip Ql (U) Negative Normal [facility] Work Phone: Leukocyte esterase Test strip Ql (U) Negative Normal [facility]; [facility] Work Phone: Nitrite Ql (U) Negative Normal [facility] Work Phone: Nitrite Ql (U) Negative Normal [facility]; [facility] Work Phone: Nitrite Test strip Ql (U) Negative Normal [facility] Work Phone: pH (U) 8.5 [pH] Normal [facility] Work Phone: pH Test strip (U) 8.5 [pH] Normal [facility] Work Phone: Protein Ql (U) Negative Normal [facility] Work Phone: Protein Ql (U) Negative Normal [facility]; [facility] Work Phone: Protein Test strip Ql (U) Negative Normal [facility] Work Phone: Specific gravity Relative Density (U) 1.020 1 Normal [facility] Work Phone: Urobilinogen mass/time (24H U) Normal Normal [facility] Work Phone: Bedside Glucoseon 11-11-2015 BEDSIDE GLU 99 mg/dL Normal 70-110 [facility] Work Phone: Comment on above: Policy and Physician s Orders followedMANAGEMENT OF PATIENT CARE PER NURSING PROTOCOL Bedside Glucose 99 mg/dL Normal 70-110 [facility] Work Phone: Comment on above: Policy and Physician s Orders followedMANAGEMENT OF PATIENT CARE PER NURSING PROTOCOL Protein Electro, Random Urin anna marie 05-31-2015 Albumin/Protein.total Elph mass fraction (U) 59.4 % Normal [facility] Work Phone: Alpha 1 globulin/Protein.total Elph mass fraction (U) 3.3 % Normal [facility] Work Phone: Alpha 2 globulin/Protein.total Elph mass fraction (U) 8.4 % Normal [facility] Work Phone: Beta globulin/Protein.total Elph mass fraction (U) 18.5 % Normal [facility] Work Phone: Gamma globulin/Protein.total Elph mass fraction (U) 10.5 % Normal [facility] Work Phone: Protein mass conc (U) 15.3 mg/dL Abnormal 0.0-15.0 [facility] Work Phone: Protein.monoclonal/Pro tein.total Elph mass fraction (U) Not Observed Normal [facility] Work Phone: Protein Electro.,Son 016 Albumin mass conc 4.7 g/dL Normal 3.2-5.6 [facility] Work Phone: Albumin/Globulin mass ratio 1.8 {ratio} Normal 0.7-2.0 [facility] Work Phone: Alpha 1 globulin Elph mass conc 0.2 g/dL Normal 0.1-0.4 [facility] Work Phone: Alpha 2 globulin Elph mass conc 0.6 g/dL Normal 0.4-1.2 [facility] Work Phone: Beta globulin Elph mass conc 0.9 g/dL Normal 0.6-1.3 [facility] Work Phone: Gamma globulin Elph mass conc 0.9 g/dL Normal 0.5-1.6 [facility] Work Phone: Globulin Calculated mass conc (S) 2.6 g/dL Normal 2.0-4.5 [facility] Work Phone: Laboratory comment Eder (Report) SPRCS Normal [facility] Work Phone: Comment on above: Protein electrophore sis scan will follow via computer, mail, orcourier delivery. Protein mass conc 7.3 g/dL Normal 6.0-8.5 [facility] Work Phone: Protein.monoclonal Elph mass conc Not Observed Normal [facility] Work Phone: Vital Signs Date Time Vital Sign Value Performing Clinician Facility 11-02-2024 14:15-0400 Body height 160.[address] Donna Perdomo MD Work Phone: [facility] 11-02-2024 14:15-0400 Body mass index (BMI) [Ratio] 27.8 kg/m2 Dr. Donna Perdomo MD Work Phone: [facility] 11-02-2024 14:15-0400 Body temperature 97.4 [degF] Dr. Donna Perdomo MD Work Phone: [facility] 11-02-2024 14:15-0400 Body weight 71.[address] Donna Perdomo MD Work Phone: [facility] 11-02-2024 14:15-0400 Diastolic blood pressure 70 mm[Hg] Dr. Donna Perdomo MD Work Phone: [facility] 11-02-2024 14:15-0400 Heart rate 97 /min Dr. Donna Perdomo MD Work Phone: [facility] 11-02-2024 14:15-0400 Respiratory rate 16 /min Dr. Donna Perdomo MD Work Phone: [facility] 11-02-2024 14:15-0400 SaO2% (BldA) [Mass fraction] 97 % Dr. Donna Perdomo MD Work Phone: [facility] 11-02-2024 14:15-0400 Systolic blood pressure 122 mm[Hg] Dr. Donna Perdomo MD Work Phone: [facility] 10-13-2024 14:55-0400 Body height 160.[address] Donna Perdomo MD Work Phone: [facility] 10-13-2024 14:55-0400 Body mass index (BMI) [Ratio] 27.6 kg/m2 Dr. Donna Perdomo MD Work Phone: [facility] 10-13-2024 14:55-0400 Body temperature 97.8 [degF] Dr. Donna Perdomo MD Work Phone: [facility] 10-13-2024 14:55-0400 Body weight 70.[address] Donna Perdomo MD Work Phone: [facility] 10-13-2024 14:55-0400 Diastolic blood pressure 62 mm[Hg] Dr. Donna Perdomo MD Work Phone: [facility] 10-13-2024 14:55-0400 Heart rate 104 /min Dr. Donna Perdomo MD Work Phone: [facility] 10-13-2024 14:55-0400 Respiratory rate 18 /min Dr. Donna Perdomo MD Work Phone: [facility] 10-13-2024 14:55-0400 SaO2% (BldA) [Mass fraction] 97 % Dr. Donna Perdomo MD Work Phone: [facility] 10-13-2024 14:55-0400 Systolic blood pressure 118 mm[Hg] Dr. Donna Perdomo MD Work Phone: [facility] 10-06-2024 23:25-0400 SaO2% (BldA) [Mass fraction] 99 % JOHAN LUJAN [facility] Comment on above: Order Comment: Specimen Type: BLOOD SPEC IMEN Ordering Facility: [facility] Address: [address] [place] [address] Performed By: #### 2 4321-2, 2777-1, 52558-3 #### [facility] CLIA [id number] [address] [place] 10-06-2024 21:10-0400 Diastolic blood pressure 85 mm[Hg] Dr. Donna Perdomo MD Work Phone: [facility] 10-06-2024 21:10-0400 Heart rate 116 /min Dr. Donna Perdomo MD Work Phone: [facility] 10-06-2024 21:10-0400 Respiratory rate 16 /min Dr. Donna Perdomo MD Work Phone: [facility] 10-06-2024 21:10-0400 SaO2% (BldA) [Mass fraction] 99 % Dr. Donna Perdomo MD Work Phone: [facility] 10-06-2024 21:10-0400 Systolic blood pressure 128 mm[Hg] Dr. Donna Perdomo MD Work Phone: [facility] 10-06-2024 21:03-0400 Inhaled oxygen concentration 25 % Dr. Donna Perdomo MD Work Phone: [facility] 10-06-2024 20:29-0400 Body temperature 98.2 [degF] Dr. Donna Perdomo MD Work Phone: [facility] 10-06-2024 20:12-0400 Inhaled oxygen concentration 30 % Dr. Donna Perdomo MD Work Phone: [facility] 10-06-2024 13:41-0400 Body height 152.[address] Donna Perdomo MD Work Phone: [facility] 10-06-2024 13:41-0400 Body mass index (BMI) [Ratio] 31.6 kg/m2 Dr. Donna Perdomo MD Work Phone: [facility] 10-06-2024 13:41-0400 Body weight 73.[address] Donna Perdomo MD Work Phone: [facility] 08-18-2024 14:38-0400 Body temperature 98.1 [degF] Dr. Donna Perdomo MD Work Phone: [facility] 08-18-2024 14:38-0400 Diastolic blood pressure 79 mm[Hg] Dr. Donna Perdomo MD Work Phone: [facility] 08-18-2024 14:38-0400 Heart rate 77 /min Dr. Donna Perdomo MD Work Phone: [facility] 08-18-2024 14:38-0400 Respiratory rate 19 /min Dr. Donna Perdomo MD Work Phone: [facility] 08-18-2024 14:38-0400 SaO2% (BldA) [Mass fraction] 99 % Dr. Donna Perdomo MD Work Phone: [facility] 08-18-2024 14:38-0400 Systolic blood pressure 107 mm[Hg] Dr. Donna Perdomo MD Work Phone: [facility] 08-18-2024 11:44-0400 Body height 157.[address] Donna Perdomo MD Work Phone: [facility] 08-18-2024 11:44-0400 Body mass index (BMI) [Ratio] 29.5 kg/m2 Dr. Donna ePrdomo MD Work Phone: [facility] 08-18-2024 11:44-0400 Body weight 73.[address] Donna Perdomo MD Work Phone: [facility] 07-26-2024 14:04-0400 Body height 157.[address] Donna Perdomo MD Work Phone: [facility] 07-26-2024 14:04-0400 Body mass index (BMI) [Ratio] 29 kg/m2 Dr. Donna Perdomo MD Work Phone: [facility] 07-26-2024 14:04-0400 Body temperature 98.5 [degF] Dr. Donna Perdomo MD Work Phone: [facility] 07-26-2024 14:04-0400 Body weight 72.[address] Donna Perdomo MD Work Phone: [facility] 07-26-2024 14:04-0400 Diastolic blood pressure 68 mm[Hg] Dr. Donna Perdomo MD Work Phone: [facility] 07-26-2024 14:04-0400 Heart rate 97 /min Dr. Donna Perdomo MD Work Phone: [facility] 07-26-2024 14:04-0400 Respiratory rate 16 /min Dr. Donna Perdomo MD Work Phone: [facility] 07-26-2024 14:04-0400 SaO2% (BldA) [Mass fraction] 97 % Dr. Donna Perdomo MD Work Phone: [facility] 07-26-2024 14:04-0400 Systolic blood pressure 114 mm[Hg] Dr. Donna Perdomo MD Work Phone: [facility] 07-06-2024 08:32-0500 Body mass index (BMI) [Ratio] 29.3 kg/m2 Dr. Donna Perdomo MD Work Phone: [facility] 07-06-2024 08:32-0500 Body temperature 98.6 [degF] Dr. Donna Perdomo MD Work Phone: [facility] 07-06-2024 08:32-0500 Body weight 72.[address] Donna Perdomo MD Work Phone: [facility] 07-06-2024 08:32-0500 Diastolic blood pressure 68 mm[Hg] Dr. Donna Perdomo MD Work Phone: [facility] 07-06-2024 08:32-0500 Heart rate 100 /min Dr. Donna Perdomo MD Work Phone: [facility] 07-06-2024 08:32-0500 Respiratory rate 17 /min Dr. Donna Perdomo MD Work Phone: [facility] 07-06-2024 08:32-0500 SaO2% (BldA) [Mass fraction] 97 % Dr. Donna Perdomo MD Work Phone: [facility] 07-06-2024 08:32-0500 Systolic blood pressure 110 mm[Hg] Dr. Donna Perdomo MD Work Phone: [facility] 04-12-2024 13:55-0500 Body mass index (BMI) [Ratio] 29.6 kg/m2 Dr. Donna Perdomo MD Work Phone: [facility] 04-12-2024 13:55-0500 Body temperature 98.6 [degF] Dr. Donna Perdomo MD Work Phone: [facility] 04-12-2024 13:55-0500 Body weight 73.[address] Donna Perdomo MD Work Phone: [facility] 04-12-2024 13:55-0500 Diastolic blood pressure 82 mm[Hg] Dr. Donna Perdomo MD Work Phone: [facility] 04-12-2024 13:55-0500 Heart rate 93 /min Dr. Donna Perdomo MD Work Phone: [facility] 04-12-2024 13:55-0500 Respiratory rate 16 /min Dr. Donna Perdomo MD Work Phone: [facility] 04-12-2024 13:55-0500 SaO2% (BldA) [Mass fraction] 97 % Dr. Donna Perdomo MD Work Phone: [facility] 04-12-2024 13:55-0500 Systolic blood pressure 114 mm[Hg] Dr. Donna Perdomo MD Work Phone: [facility] 10-11-2023 08:58-0400 Body mass index (BMI) [Ratio] 30.24 kg/m2 Maya Puente CUSTOMER SALES REPRESENTATIVE.PLATFORM MATERIAL HANDLING SUPERVISOR Work Phone: [facility] 10-11-2023 08:58-0400 Body temperature 97.3 [degF] Maya Puente CUSTOMER SALES REPRESENTATIVE.PLATFORM MATERIAL HANDLING SUPERVISOR Work Phone: [facility] 10-11-2023 08:58-0400 Body weight 75 kg Maya Puente CUSTOMER SALES REPRESENTATIVE.PLATFORM MATERIAL HANDLING SUPERVISOR Work Phone: [facility] 10-11-2023 08:58-0400 Diastolic blood pressure 80 mm[Hg] Maya Puente CUSTOMER SALES REPRESENTATIVE.PLATFORM MATERIAL HANDLING SUPERVISOR Work Phone: [facility] 10-11-2023 08:58-0400 Heart rate 102 /min Maya Puente CUSTOMER SALES REPRESENTATIVE.PLATFORM MATERIAL HANDLING SUPERVISOR Work Phone: [facility] 10-11-2023 08:58-0400 Respiratory rate 16 /min Maya Puente CUSTOMER SALES REPRESENTATIVE.PLATFORM MATERIAL HANDLING SUPERVISOR Work Phone: [facility] 10-11-2023 08:58-0400 SaO2% (BldA) [Mass fraction] 98 % Maya Puente CUSTOMER SALES REPRESENTATIVE.PLATFORM MATERIAL HANDLING SUPERVISOR Work Phone: [facility] 10-11-2023 08:58-0400 Systolic blood pressure 120 mm[Hg] Maya Puente CUSTOMER SALES REPRESENTATIVE.PLATFORM MATERIAL HANDLING SUPERVISOR Work Phone: [facility] 08-12-2023 11:46-0400 Body mass index (BMI) [Ratio] 29.76 kg/m2 Talya Rodriguez APRN-PLATFORM MATERIAL HANDLING SUPERVISOR Work Phone: [facility] 08-12-2023 11:46-0400 Body temperature 97.9 [degF] Talya Usher CUSTOMER SALES REPRESENTATIVE-PLATFORM MATERIAL HANDLING SUPERVISOR Work Phone: [facility] 08-12-2023 11:46-0400 Body weight 76.2 kg Talya Usher CUSTOMER SALES REPRESENTATIVE-PLATFORM MATERIAL HANDLING SUPERVISOR Work Phone: [facility] 08-12-2023 11:46-0400 Diastolic blood pressure 72 mm[Hg] Talya Usher CUSTOMER SALES REPRESENTATIVE-PLATFORM MATERIAL HANDLING SUPERVISOR Work Phone: [facility] 08-12-2023 11:46-0400 Heart rate 87 /min Talya Usher CUSTOMER SALES REPRESENTATIVE-PLATFORM MATERIAL HANDLING SUPERVISOR Work Phone: [facility] 08-12-2023 11:46-0400 Systolic blood pressure 122 mm[Hg] Talya Usher CUSTOMER SALES REPRESENTATIVE-PLATFORM MATERIAL HANDLING SUPERVISOR Work Phone: [facility] 08-12-2023 09:20-0400 Body height 160 cm Renee Benameur CUSTOMER SALES REPRESENTATIVE-PLATFORM MATERIAL HANDLING SUPERVISOR Work Phone: [facility] 08-12-2023 09:20-0400 Body mass index (BMI) [Ratio] 29.76 kg/m2 Renee Benameur CUSTOMER SALES REPRESENTATIVE-PLATFORM MATERIAL HANDLING SUPERVISOR Work Phone: [facility] 08-12-2023 09:20-0400 Body temperature 97.7 [degF] Renee Mauriceameur CUSTOMER SALES REPRESENTATIVE-PLATFORM MATERIAL HANDLING SUPERVISOR Work Phone: [facility] 08-12-2023 09:20-0400 Body weight 76.2 kg Renee Benameur CUSTOMER SALES REPRESENTATIVE-PLATFORM MATERIAL HANDLING SUPERVISOR Work Phone: [facility] 08-12-2023 09:20-0400 Diastolic blood pressure 62 mm[Hg] Renee Mauriceameur CUSTOMER SALES REPRESENTATIVE-PLATFORM MATERIAL HANDLING SUPERVISOR Work Phone: [facility] 08-12-2023 09:20-0400 Heart rate 104 /min Renee Donald CUSTOMER SALES REPRESENTATIVE-PLATFORM MATERIAL HANDLING SUPERVISOR Work Phone: [facility] 08-12-2023 09:20-0400 Systolic blood pressure 129 mm[Hg] Reneemary Donald CUSTOMER SALES REPRESENTATIVE-PLATFORM MATERIAL HANDLING SUPERVISOR Work Phone: [facility] 02-12-2023 11:30-0400 Diastolic blood pressure 87 mm[Hg] [address] 02-12-2023 11:30-0400 Heart rate 99 /min [address] 02-12-2023 11:30-0400 Respiratory rate 16 /min [address] 02-12-2023 11:30-0400 Systolic blood pressure 116 mm[Hg] [address] 02-12-2023 09:14-0400 Body temperature 97.9 [degF] [address] 02-12-2023 09:14-0400 SaO2% (BldA) [Mass fraction] 97 % [address] 12-03-2022 14:27-0400 Body height 160 cm Renee Donald CUSTOMER SALES REPRESENTATIVE-PLATFORM MATERIAL HANDLING SUPERVISOR Work Phone: [facility] 12-03-2022 14:27-0400 Body mass index (BMI) [Ratio] 31.89 kg/m2 Renee Donald CUSTOMER SALES REPRESENTATIVE-PLATFORM MATERIAL HANDLING SUPERVISOR Work Phone: [facility] 12-03-2022 14:27-0400 Body temperature 97.3 [degF] Renee Benezequiel CUSTOMER SALES REPRESENTATIVE-PLATFORM MATERIAL HANDLING SUPERVISOR Work Phone: [facility] 12-03-2022 14:27-0400 Body weight 81.65 kg Renee Benezequiel CUSTOMER SALES REPRESENTATIVE-PLATFORM MATERIAL HANDLING SUPERVISOR Work Phone: [facility] 08-03-2023 14:27-0400 Diastolic blood pressure 83 mm[Hg] Renee Donald CUSTOMER SALES REPRESENTATIVE-PLATFORM MATERIAL HANDLING SUPERVISOR Work Phone: [facility] 12-03-2022 14:27-0400 Heart rate 104 /min Renee Donald CUSTOMER SALES REPRESENTATIVE-PLATFORM MATERIAL HANDLING SUPERVISOR Work Phone: [facility] 12-03-2022 14:27-0400 Systolic blood pressure 135 mm[Hg] Renee Donald CUSTOMER SALES REPRESENTATIVE-PLATFORM MATERIAL HANDLING SUPERVISOR Work Phone: [facility] 11-13-2022 15:12-0400 Body height 160 cm Edgar Ayers MD Work Phone: [facility] Comment on above: verbal 11-13-2022 15:12-0400 Body mass index (BMI) [Ratio] 31.96 kg/m2 Edgar Ayers MD Work Phone: [facility] 11-13-2022 15:12-0400 Body temperature 98.8 [degF] Edgar Ayers MD Work Phone: [facility] 11-13-2022 15:12-0400 Body weight 81.83 kg Edgar Ayers MD Work Phone: [facility] 11-13-2022 15:12-0400 Diastolic blood pressure 74 mm[Hg] Edgar Ayers MD Work Phone: [facility] 11-13-2022 15:12-0400 Heart rate 93 /min Edgar Ayers MD Work Phone: [facility] 11-13-2022 15:12-0400 Systolic blood pressure 121 mm[Hg] Edgar Ayers MD Work Phone: [facility] 11-02-2022 11:00-0400 Body temperature 98.1 [degF] Nancy Faith MD Work Phone: [facility] 11-02-2022 11:00-0400 Diastolic blood pressure 68 mm[Hg] Nancy Faith MD Work Phone: 3(621)[phone] [address] 11-02-2022 11:00-0400 Heart rate 81 /min Nancy Faith MD Work Phone: [facility] 11-02-2022 11:00-0400 Respiratory rate 16 /min Nancy Faith MD Work Phone: 9(644)853-553597 [place] [address] 11-02-2022 11:00-0400 SaO2% (BldA) [Mass fraction] 93 % Nancy Faith MD Work Phone: 7(648)[phone] [place] [address] 11-02-2022 11:00-0400 Systolic blood pressure 105 mm[Hg] Nancy Faith MD Work Phone: 1(954)444-373597 [place] [address] 10-29-2022 23:00-0400 Body height 160 cm Nancy Faith MD Work Phone: 7(409)744-797797 [place] [address] 10-29-2022 23:00-0400 Body mass index (BMI) [Ratio] 31.48 kg/m2 Nancy Faith MD Work Phone: 1(617)285-413497 [place] [address] 10-29-2022 23:00-0400 Body weight 80.6 kg Nancy Faith MD Work Phone: 5(149)083-446397 [place] [address] 10-29-2022 20:00-0400 Body temperature 98.1 [degF] [facility] 10-29-2022 20:00-0400 Diastolic blood pressure 71 mm[Hg] [facility] 10-29-2022 20:00-0400 Heart rate 81 /min [facility] 10-29-2022 20:00-0400 Respiratory rate 22 /min [facility] 10-29-2022 20:00-0400 SaO2% (BldA) [Mass fraction] 96 % [facility] 10-29-2022 20:00-0400 Systolic blood pressure 99 mm[Hg] [facility] 10-29-2022 11:10-0400 Body height 160.02 cm [facility] 10-29-2022 11:10-0400 Body mass index (BMI) [Ratio] 32.9 kg/m2 [facility] 10-29-2022 11:10-0400 Body weight 84.3 kg [facility] 10-06-2022 10:41-0400 Body height 160 cm Pankaj Mejias MD Work Phone: [facility] 10-06-2022 10:41-0400 Body mass index (BMI) [Ratio] 31.5 kg/m2 Pankaj Mejias MD Work Phone: [facility] 10-06-2022 10:41-0400 Body weight 80.65 kg Pankaj Mejias MD Work Phone: [facility] 10-06-2022 10:41-0400 Diastolic blood pressure 80 mm[Hg] Pankaj Mejias MD Work Phone: [facility] 10-06-2022 10:41-0400 Heart rate 117 /min Pankaj Mejias MD Work Phone: [facility] 10-06-2022 10:41-0400 Systolic blood pressure 128 mm[Hg] Pankaj Mejias MD Work Phone: [facility] 09-07-2022 18:06-0400 Diastolic blood pressure 79 mm[Hg] [facility] 09-07-2022 18:06-0400 Respiratory rate 18 /min [facility] 09-07-2022 18:06-0400 Systolic blood pressure 115 mm[Hg] [facility] 09-07-2022 16:42-0400 Body temperature 96.6 [degF] [facility] 09-07-2022 16:42-0400 Heart rate 78 /min [facility] 09-07-2022 16:42-0400 SaO2% (BldA) [Mass fraction] 98 % [facility] 09-07-2022 14:04-0400 Body height 160.02 cm [facility] 09-07-2022 14:04-0400 Body mass index (BMI) [Ratio] 30.4 kg/m2 [facility] 09-07-2022 14:04-0400 Body weight 78.01 kg [facility] 08-08-2022 13:00-0400 Diastolic blood pressure 73 mm[Hg] [facility] 08-08-2022 13:00-0400 Systolic blood pressure 107 mm[Hg] [facility] 08-08-2022 11:01-0400 Body height 160.02 cm [facility] 08-08-2022 11:01-0400 Body mass index (BMI) [Ratio] 31.9 kg/m2 [facility] 08-08-2022 11:01-0400 Body temperature 98.4 [degF] [facility] 08-08-2022 11:01-0400 Body weight 81.9 kg [facility] 08-08-2022 11:01-0400 Heart rate 115 /min [facility] 08-08-2022 11:01-0400 Respiratory rate 16 /min [facility] 08-08-2022 11:01-0400 SaO2% (BldA) [Mass fraction] 98 % [facility] 08-07-2022 05:27-0400 Body temperature 98.01 [degF] Rivka Voll DO Work Phone: [facility] 08-07-2022 05:27-0400 Diastolic blood pressure 75 mm[Hg] Rivka Voll DO Work Phone: [facility] 08-07-2022 05:27-0400 Heart rate 84 /min Rivka Voll DO Work Phone: [facility] 08-07-2022 05:27-0400 Respiratory rate 18 /min Rivka Voll DO Work Phone: [facility] 08-07-2022 05:27-0400 SaO2% (BldA) [Mass fraction] 96 % Rivka Voll DO Work Phone: [facility] 08-07-2022 05:27-0400 Systolic blood pressure 112 mm[Hg] Rivka Voll DO Work Phone: [facility] 08-05-2022 10:03-0400 Body height 157.5 cm Rivka Voll DO Work Phone: [facility] 08-05-2022 10:03-0400 Body mass index (BMI) [Ratio] 31.08 kg/m2 Rivka Voll DO Work Phone: [facility] 08-05-2022 10:03-0400 Body weight 77.1 kg Rivka Voll DO Work Phone: [facility] 07-30-2022 10:00-0400 Diastolic blood pressure 84 mm[Hg] Preti Sakshi SALGADO Work Phone: [facility] 07-30-2022 10:00-0400 Heart rate 71 /min Preti Sakshi SALGADO Work Phone: [facility] 07-30-2022 10:00-0400 Respiratory rate 21 /min Preti Sakshi SALGADO Work Phone: [facility] 07-30-2022 10:00-0400 SaO2% (BldA) [Mass fraction] 100 % Preti Sakshi SALGADO Work Phone: [facility] 07-30-2022 10:00-0400 Systolic blood pressure 123 mm[Hg] Preti Sakshi SALGADO Work Phone: [facility] 07-30-2022 07:09-0400 Body height 157.5 cm Preti Sakshi SALGADO Work Phone: [facility] 07-30-2022 07:09-0400 Body mass index (BMI) [Ratio] 31.05 kg/m2 Preti Sakshi SALGADO Work Phone: [facility] 07-30-2022 07:09-0400 Body temperature 97.3 [degF] Pretvishal Cantor MD Work Phone: [facility] 07-30-2022 07:09-0400 Body weight 77 kg Renny Cantor MD Work Phone: [facility] 07-17-2022 18:59-0400 Diastolic blood pressure 71 mm[Hg] [facility] 07-17-2022 18:59-0400 Heart rate 78 /min [facility] 07-17-2022 18:59-0400 Respiratory rate 16 /min [facility] 07-17-2022 18:59-0400 SaO2% (BldA) [Mass fraction] 98 % [facility] 07-17-2022 18:59-0400 Systolic blood pressure 114 mm[Hg] [facility] 07-17-2022 14:24-0400 Body height 157.48 cm [facility] 07-17-2022 14:24-0400 Body mass index (BMI) [Ratio] 31.6 kg/m2 [facility] 07-17-2022 14:24-0400 Body temperature 98 [degF] [facility] 07-17-2022 14:24-0400 Body weight 78.52 kg [facility] 07-12-2022 11:04-0400 Body temperature 98.1 [degF] Krislyn Aberegg PA Work Phone: [facility] 07-12-2022 11:04-0400 Body weight 78.74 kg Krislyn Aberegg PA Work Phone: [facility] 07-12-2022 11:04-0400 Diastolic blood pressure 76 mm[Hg] Krislyn Aberegg PA Work Phone: [facility] 07-12-2022 11:04-0400 Heart rate 125 /min Krislyn Aberegg PA Work Phone: [facility] 07-12-2022 11:04-0400 Respiratory rate 21 /min Krislyn Aberegg PA Work Phone: [facility] 07-12-2022 11:04-0400 SaO2% (BldA) [Mass fraction] 97 % Krislyn Aberegg PA Work Phone: [facility] 07-12-2022 11:04-0400 Systolic blood pressure 98 mm[Hg] Luis TAYLOR Work Phone: [facility] 05-27-2022 13:15-0500 Diastolic blood pressure 66 mm[Hg] [facility] 05-27-2022 13:15-0500 Heart rate 74 /min [facility] 05-27-2022 13:15-0500 Respiratory rate 15 /min [facility] 05-27-2022 13:15-0500 SaO2% (BldA) [Mass fraction] 99 % [facility] 05-27-2022 13:15-0500 Systolic blood pressure 103 mm[Hg] [facility] 05-27-2022 10:30-0500 Body height 157.48 cm [facility] 05-27-2022 10:30-0500 Body mass index (BMI) [Ratio] 34.3 kg/m2 [facility] 05-27-2022 10:30-0500 Body temperature 96.4 [degF] [facility] 05-27-2022 10:30-0500 Body weight 85.1 kg [facility] 04-29-2022 08:39-0500 Body weight 76.57 kg Sarah Pop MD Work Phone: [facility] 04-29-2022 08:39-0500 Diastolic blood pressure 80 mm[Hg] Sarah Pop MD Work Phone: [facility] 04-29-2022 08:39-0500 Systolic blood pressure 128 mm[Hg] Sarah Pop MD Work Phone: [facility] 04-08-2022 13:35-0500 Diastolic blood pressure 53 mm[Hg] Angelita Ho MD Work Phone: [facility] 04-08-2022 13:35-0500 Heart rate 93 /min Angelita Ho MD Work Phone: [facility] 04-08-2022 13:35-0500 Respiratory rate 16 /min Angelita Ho MD Work Phone: [facility] 04-08-2022 13:35-0500 SaO2% (BldA) [Mass fraction] 98 % Angelita Ho MD Work Phone: [facility] 04-08-2022 13:35-0500 Systolic blood pressure 95 mm[Hg] Angelita Ho MD Work Phone: [facility] 04-08-2022 13:20-0500 Body temperature 99.1 [degF] Angelita Ho MD Work Phone: [facility] 04-08-2022 12:19-0500 Body height 157.5 cm Angelita Ho MD Work Phone: [facility] 04-08-2022 12:19-0500 Body mass index (BMI) [Ratio] 29.32 kg/m2 Angelita Ho MD Work Phone: [facility] 04-08-2022 12:19-0500 Body weight 72.71 kg Angelita Ho MD Work Phone: [facility] 04-01-2022 09:07-0500 Body height 157.5 cm Becky Hernan PA-C Work Phone: [facility] 04-01-2022 09:07-0500 Body weight 76.07 kg Becky Hernan PA-C Work Phone: [facility] 04-01-2022 09:07-0500 Diastolic blood pressure 80 mm[Hg] Becky Hernan PA-C Work Phone: [facility] 04-01-2022 09:07-0500 Heart rate 97 /min Becky Hernan PA-C Work Phone: [facility] 04-01-2022 09:07-0500 Systolic blood pressure 108 mm[Hg] Becky Hernan PA-C Work Phone: [facility] 03-27-2022 12:52-0500 SaO2% (BldA) [Mass fraction] 98 % Dr. Donna Perdomo Work Phone: [facility] 03-27-2022 09:03-0500 Body height 157.[address] Donna Perdomo Work Phone: [facility] Work Phone: 03-27-2022 09:03-0500 Body mass index (BMI) [Ratio] 29.9 kg/m2 Dr. Donna Perdomo Work Phone: [facility] 03-27-2022 09:03-0500 Body temperature 96.7 [degF] Dr. Donna Perdomo Work Phone: [facility] 03-27-2022 09:03-0500 Body weight 74.[address] Donna Perdomo Work Phone: [facility] 03-27-2022 09:03-0500 Diastolic blood pressure 46 mm[Hg] Dr. Donna Perdomo Work Phone: [facility] 03-27-2022 09:03-0500 Heart rate 116 /min Dr. Donna Perdomo Work Phone: [facility] 03-27-2022 09:03-0500 Respiratory rate 16 /min Dr. Donna Perdomo Work Phone: [facility] 03-27-2022 09:03-0500 Systolic blood pressure 113 mm[Hg] Dr. Donna Perdomo Work Phone: [facility] 02-05-2022 19:13-0400 Diastolic blood pressure 71 mm[Hg] Dr. Donna Perdomo Work Phone: [facility] 02-05-2022 19:13-0400 Systolic blood pressure 105 mm[Hg] Dr. Donna Perdomo Work Phone: [facility] 02-05-2022 15:46-0400 Heart rate 102 /min Dr. Donna Perdomo Work Phone: [facility] 02-05-2022 15:46-0400 Respiratory rate 20 /min Dr. Donna Perdomo Work Phone: [facility] 02-05-2022 15:46-0400 SaO2% (BldA) [Mass fraction] 96 % Dr. Donna Perdomo Work Phone: [facility] 02-05-2022 15:17-0400 Body height 157.[address] Donna Perdomo Work Phone: [facility] Work Phone: 02-05-2022 15:17-0400 Body mass index (BMI) [Ratio] 26.5 kg/m2 Dr. Donna Perdomo Work Phone: [facility] 02-05-2022 15:17-0400 Body temperature 98.8 [degF] Dr. Donna Perdomo Work Phone: [facility] 02-05-2022 15:17-0400 Body weight 65.[address] Donna Perdomo Work Phone: [facility] 01-13-2022 00:46-0400 Diastolic blood pressure 66 mm[Hg] Dr. Donna Perdomo Work Phone: [facility] Work Phone: 01-13-2022 00:46-0400 Heart rate 81 /min Dr. Donna Perdomo Work Phone: [facility] Work Phone: 01-13-2022 00:46-0400 Respiratory rate 18 /min Dr. Donna Perdomo Work Phone: [facility] Work Phone: 01-13-2022 00:46-0400 SaO2% (BldA) [Mass fraction] 95 % Dr. Donna Perdomo Work Phone: [facility] Work Phone: 01-13-2022 00:46-0400 Systolic blood pressure 104 mm[Hg] Dr. Donna Perdomo Work Phone: [facility] Work Phone: 01-12-2022 21:05-0400 Body mass index (BMI) [Ratio] 30.7 kg/m2 Dr. Donna Perdomo Work Phone: [facility] Work Phone: 01-12-2022 21:05-0400 Body temperature 98.8 [degF] Dr. Donna Perdomo Work Phone: [facility] Work Phone: 01-12-2022 21:05-0400 Body weight 76.[address] Donna Perdomo Work Phone: [facility] Work Phone: 12-22-2021 18:46-0400 Body temperature 98.29 [degF] Louise Soriano CUSTOMER SALES REPRESENTATIVE.PLATFORM MATERIAL HANDLING SUPERVISOR Work Phone: [facility] 12-22-2021 18:46-0400 Body weight 76.48 kg Louise Soriano CUSTOMER SALES REPRESENTATIVE.PLATFORM MATERIAL HANDLING SUPERVISOR Work Phone: [facility] 12-22-2021 18:46-0400 Diastolic blood pressure 86 mm[Hg] Louise Soriano CUSTOMER SALES REPRESENTATIVE.PLATFORM MATERIAL HANDLING SUPERVISOR Work Phone: [facility] 12-22-2021 18:46-0400 Heart rate 99 /min Louise Soriano CUSTOMER SALES REPRESENTATIVE.PLATFORM MATERIAL HANDLING SUPERVISOR Work Phone: [facility] 12-22-2021 18:46-0400 Respiratory rate 20 /min Louise Soriano CUSTOMER SALES REPRESENTATIVE.PLATFORM MATERIAL HANDLING SUPERVISOR Work Phone: [facility] 12-22-2021 18:46-0400 SaO2% (BldA) [Mass fraction] 98 % Louise Soriano CUSTOMER SALES REPRESENTATIVE.PLATFORM MATERIAL HANDLING SUPERVISOR Work Phone: [facility] 12-22-2021 18:46-0400 Systolic blood pressure 112 mm[Hg] Louise Soriano CUSTOMER SALES REPRESENTATIVE.PLATFORM MATERIAL HANDLING SUPERVISOR Work Phone: [facility] 12-01-2021 13:22-0400 Body temperature 98.01 [degF] Maya Puente CUSTOMER SALES REPRESENTATIVE.PLATFORM MATERIAL HANDLING SUPERVISOR Work Phone: [facility] 12-01-2021 13:22-0400 Body weight 74.84 kg Maya Puente CUSTOMER SALES REPRESENTATIVE.PLATFORM MATERIAL HANDLING SUPERVISOR Work Phone: [facility] 12-01-2021 13:22-0400 Diastolic blood pressure 88 mm[Hg] Maya Puente CUSTOMER SALES REPRESENTATIVE.PLATFORM MATERIAL HANDLING SUPERVISOR Work Phone: [facility] 12-01-2021 13:22-0400 Heart rate 100 /min Maya Puente CUSTOMER SALES REPRESENTATIVE.PLATFORM MATERIAL HANDLING SUPERVISOR Work Phone: [facility] 12-01-2021 13:22-0400 Respiratory rate 21 /min Maya Puente CUSTOMER SALES REPRESENTATIVE.PLATFORM MATERIAL HANDLING SUPERVISOR Work Phone: [facility] 12-01-2021 13:22-0400 SaO2% (BldA) [Mass fraction] 99 % Maya Puente CUSTOMER SALES REPRESENTATIVE.PLATFORM MATERIAL HANDLING SUPERVISOR Work Phone: [facility] 12-01-2021 13:22-0400 Systolic blood pressure 124 mm[Hg] Maya Puente CUSTOMER SALES REPRESENTATIVE.PLATFORM MATERIAL HANDLING SUPERVISOR Work Phone: [facility] 10-17-2021 13:34-0400 Body temperature 98 [degF] SHEET [employer] WORK FURNACE INSTALLER-C Dylan Ciesa SHEET METAL WORK FURNACE INSTALLER Work Phone: [facility] Work Phone: 10-17-2021 13:34-0400 Diastolic blood pressure 63 mm[Hg] SHEET METAL WORK FURNACE INSTALLER-C Dylan Ciesa SHEET METAL WORK FURNACE INSTALLER Work Phone: [facility] Work Phone: 10-17-2021 13:34-0400 Heart rate 75 /min SHEET METAL WORK FURNACE INSTALLER-C Dylan Ciesa SHEET METAL WORK FURNACE INSTALLER Work Phone: [facility] Work Phone: 10-17-2021 13:34-0400 Respiratory rate 16 /min SHE[employer]AL WORK FURNACE INSTALLER-C Dylan Ciesa SHEET METAL WORK FURNACE INSTALLER Work Phone: [facility] Work Phone: 10-17-2021 13:34-0400 SaO2% (BldA) [Mass fraction] 96 % SHE[employer] WORK FURNACE INSTALLER-C Dylan Velarde SHEET METAL WORK FURNACE INSTALLER Work Phone: [facility] Work Phone: 10-17-2021 13:34-0400 Systolic blood pressure 96 mm[Hg] SHE[employer] WORK FURNACE INSTALLER-C Dylan Velarde SHEET METAL WORK FURNACE INSTALLER Work Phone: [facility] Work Phone: 10-17-2021 10:42-0400 Body height 157.48 cm SHEET [employer] WORK FURNACE INSTALLER-C Dylan Velarde SHEET METAL WORK FURNACE INSTALLER Work Phone: [facility] Work Phone: 10-17-2021 10:42-0400 Body mass index (BMI) [Ratio] 28.2 kg/m2 [employer] WORK FURNACE INSTALLER-C Dylan Velarde SHEET METAL WORK FURNACE INSTALLER Work Phone: [facility] Work Phone: 10-17-2021 10:42-0400 Body weight 70 kg SHEET METAL WORK FURNACE INSTALLER-C Dylan Velarde SHEET METAL WORK FURNACE INSTALLER Work Phone: [facility] Work Phone: 10-01-2021 10:24-0400 Body height 157.5 cm Sarah Pop MD Work Phone: [facility] 10-01-2021 10:24-0400 Body weight 71.03 kg Sarah Pop MD Work Phone: [facility] 10-01-2021 10:24-0400 Diastolic blood pressure 74 mm[Hg] Sarah Pop MD Work Phone: [facility] 10-01-2021 10:24-0400 Heart rate 82 /min Sarah Pop MD Work Phone: [facility] 10-01-2021 10:24-0400 Respiratory rate 16 /min Sarah Pop MD Work Phone: [facility] 10-01-2021 10:24-0400 Systolic blood pressure 104 mm[Hg] Sarah Pop MD Work Phone: [facility] 09-01-2021 10:24-0400 Body weight 68.13 kg Sarah Pop MD Work Phone: [facility] 09-01-2021 10:24-0400 Diastolic blood pressure 70 mm[Hg] Sarah Pop MD Work Phone: [facility] 09-01-2021 10:24-0400 Systolic blood pressure 100 mm[Hg] Sarah Pop MD Work Phone: [facility] 08-20-2021 14:22-0400 Body weight 68.13 kg Sarah Pop MD Work Phone: [facility] 08-20-2021 14:22-0400 Diastolic blood pressure 70 mm[Hg] Sarah Pop MD Work Phone: [facility] 08-20-2021 14:22-0400 Systolic blood pressure 104 mm[Hg] Sarah Pop MD Work Phone: [facility] 08-15-2021 11:52-0400 Heart rate 108 /min SHE[employer] WORK FURNACE INSTALLER-C Dylan Pata SHEET METAL WORK FURNACE INSTALLER Work Phone: [facility] Work Phone: 08-15-2021 11:52-0400 Respiratory rate 17 /min [employer] WORK FURNACE INSTALLER-C Dylan Pata SHEET METAL WORK FURNACE INSTALLER Work Phone: [facility] Work Phone: 08-15-2021 11:52-0400 SaO2% (BldA) [Mass fraction] 98 % SHE[employer] WORK FURNACE INSTALLER-C Dylan Pata SHEET METAL WORK FURNACE INSTALLER Work Phone: [facility] Work Phone: 08-15-2021 10:39-0400 Body temperature 97.8 [degF] SHE[employer] WORK FURNACE INSTALLER-C Dylan Bakeresa SHEET METAL WORK FURNACE INSTALLER Work Phone: [facility] Work Phone: 08-15-2021 10:39-0400 Diastolic blood pressure 99 mm[Hg] SHE[employer]AL WORK FURNACE INSTALLER-C Dylan Pata SHEET METAL WORK FURNACE INSTALLER Work Phone: [facility] Work Phone: 08-15-2021 10:39-0400 Systolic blood pressure 111 mm[Hg] SHEET METAL WORK FURNACE INSTALLER-C Dylan Velarde SHEET METAL WORK FURNACE INSTALLER Work Phone: [facility] Work Phone: 08-15-2021 10:34-0400 Body height 154.94 cm SHEET [employer] WORK FURNACE INSTALLER-C Dylan Velarde SHEET METAL WORK FURNACE INSTALLER Work Phone: [facility] Work Phone: 08-15-2021 10:34-0400 Body mass index (BMI) [Ratio] 27.3 kg/m2 [employer] WORK FURNACE INSTALLER-C Dylan Velarde SHEET METAL WORK FURNACE INSTALLER Work Phone: [facility] Work Phone: 08-15-2021 10:34-0400 Body weight 65.77 kg SHEET [employer] WORK FURNACE INSTALLER-C Dylan Velarde SHEET METAL WORK FURNACE INSTALLER Work Phone: [facility] Work Phone: 12-24-2020 09:02-0400 Body height 162.56 cm Nina Bashir LPN [facility] Work Phone: 12-24-2020 09:02-0400 Body mass index (BMI) [Ratio] 28.19 kg/m2 Nina Bashir LPN [facility]; [facility] Work Phone: 12-24-2020 09:02-0400 Body surface area Derived from formula 1.8 m2 Nina Bashir LPN [facility]; [facility] Work Phone: 12-24-2020 09:02-0400 Body temperature 97.6 [degF] Nina Bashir LPN [facility]; [facility] Work Phone: Comment on above: Method: Temporal 12-24-2020 09:02-0400 Body weight 74.5 kg Nina Bashir LPN [facility]; [facility] Work Phone: 12-24-2020 09:02-0400 Diastolic blood pressure 78 mm[Hg] Nina Bashir LPN [facility]; [facility] Work Phone: Comment on above: Patient Position: Sitting; Cuff Location : Left Arm; Cuff Size: Standard 12-24-2020 09:02-0400 Heart rate 77 /min Nina Bashir LPN [facility]; [facility] Work Phone: Comment on above: Pattern: Regular 12-24-2020 09:02-0400 Respiratory rate 16 /min Nina Bashir LPN [facility]; [facility] Work Phone: Comment on above: Pattern: Unlabored 12-24-2020 09:02-0400 SaO2% (BldA) [Mass fraction] 98 % Nina Bashir [employer] [facility]; [facility] Work Phone: Comment on above: Room air 12-24-2020 09:02-0400 Systolic blood pressure 102 mm[Hg] Nian Bashir [employer] [facility]; [facility] Work Phone: Comment on above: Patient Position: Sitting; Cuff Location : Left Arm; Cuff Size: Standard 11-12-2020 08:21-0400 Body height 162.56 cm Zeinab Cain [facility]; [facility] Work Phone: 11-12-2020 08:21-0400 Body mass index (BMI) [Ratio] 22.83 kg/m2 [facility]; [facility] Work Phone: 11-12-2020 08:21-0400 Body surface area Derived from formula 1.64 m2 [facility] Work Phone: 11-12-2020 08:21-0400 Body temperature 97.1 [degF] Zeinab Cain [facility]; [facility] Work Phone: Comment on above: Method: Thermal Scan 11-12-2020 08:21-0400 Body weight 60.33 kg Zeinab Cain [facility]; [facility] Work Phone: 11-12-2020 08:21-0400 Diastolic blood pressure 62 mm[Hg] [facility]; [facility] Work Phone: Comment on above: Patient Position: Sitting; Cuff Location : Left Arm; Cuff Size: Standard 11-12-2020 08:21-0400 Heart rate 82 /min Zeinab Cain [facility]; [facility] Work Phone: Comment on above: Pattern: Regular 11-12-2020 08:21-0400 Respiratory rate 16 /min Zeinab Cain [facility]; [facility] Work Phone: Comment on above: Pattern: Unlabored 11-12-2020 08:21-0400 SaO2% (BldA) [Mass fraction] 98 % Zeinab Cain [facility]; [facility] Work Phone: Comment on above: Room air 11-12-2020 08:21-0400 Systolic blood pressure 100 mm[Hg] Zeinab Christinaimagine [facility]; [facility] Work Phone: Comment on above: Patient Position: Sitting; Cuff Location : Left Arm; Cuff Size: Standard 03-13-2020 12:15-0500 BP Diastolic 76 mm[Hg] [facility] [place] 03-13-2020 12:15-0500 BP Systolic 120 mm[Hg] Jacobo Valenzuela [facility] , [place] 03-13-2020 12:15-0500 Pulse (Heart Rate) 90 /min Jacobo Valenzuela [place], [place] 03-13-2020 12:15-0500 Pulse Oximetry 100 % Jacobo Valenzuela [facility] , [place] 03-13-2020 12:15-0500 Respiratory Rate 16 /min Jacobo Valenzuela [employer] [facility], [place] 03-13-2020 10:53-0500 BMI (Body Mass Index) 27.07 kg/m2 Jacobo Huerta [facility], [place] 03-13-2020 10:53-0500 Body Temperature 98.2 [degF] [facility] [place] 03-13-2020 10:53-0500 Body weight 67.13 kg [facility] [place] 03-13-2020 10:53-0500 Height 157.5 cm Jacobo Valenzuela [facility] , [place] 10-08-2019 08:16-0400 Body Temperature 98.2 [degF] [facility], [place] 10-08-2019 08:16-0400 BP Diastolic 54 mm[Hg] [facility] , [place] 10-08-2019 08:16-0400 BP Systolic 100 mm[Hg] [facility] , [place] 10-08-2019 08:16-0400 Pulse (Heart Rate) 71 /min [facility], [place] 10-08-2019 08:16-0400 Pulse Oximetry 98 % [facility] [place] 10-08-2019 08:16-0400 Respiratory Rate 15 /min [facility], [place] 10-07-2019 02:09-0400 BMI (Body Mass Index) 21.95 kg/m2 [facility], [place] 10-07-2019 02:09-0400 Body weight 54.43 kg [facility] , [place] 10-07-2019 02:09-0400 Height 157.5 cm [facility] , [place] 07-19-2019 14:27-0400 BMI (Body Mass Index) 22.83 kg/m2 Alexis Iqbal LPN [facility]; [facility] Work Phone: 07-19-2019 14:27-0400 Body Temperature 97.6 [degF] Alexis Iqbal LPN [facility]; [facility] Work Phone: Comment on above: Method: Temporal 07-19-2019 14:27-0400 Body weight 60.33 kg Alexis Iqbal LPN [facility]; [facility] Work Phone: 07-19-2019 14:27-0400 BP Diastolic 62 mm[Hg] Alexis Iqbal LPN [facility]; [facility] Work Phone: Comment on above: Patient Position: Sitting; Cuff Location : Left Arm; Cuff Size: Standard 07-19-2019 14:27-0400 BP Systolic 104 mm[Hg] Alexis Iqbal LPN [facility]; [facility] Work Phone: Comment on above: Patient Position: Sitting; Cuff Location : Left Arm; Cuff Size: Standard 07-19-2019 14:27-0400 BSA (Body Surface Area) 1.64 m2 Alexis Iqbal LPN [facility]; [facility] Work Phone: 07-19-2019 14:27-0400 Height 162.56 cm Alexis Iqbal LPN [facility]; [facility] Work Phone: 07-19-2019 14:27-0400 Pulse (Heart Rate) 94 /min Alexis Iqbal LPN [facility]; [facility] Work Phone: Comment on above: Pattern: Regular 07-19-2019 14:27-0400 Pulse Oximetry 98 % Dylan Velarde [facility]; [facility] Work Phone: Comment on above: Room air 07-19-2019 14:27-0400 Respiratory Rate 16 /min Alexis Iqbal LPN [facility]; [facility] Work Phone: Comment on above: Pattern: Unlabored 07-19-2019 14:27-0400 SaO2% (BldA) [Mass fraction] 98 % Alexis Iqbal LPN [facility]; [facility] Work Phone: Comment on above: Room air 05-17-2019 14:53-0500 BMI (Body Mass Index) 22.14 kg/m2 Alexis Iqbal LPN [facility]; [facility] Work Phone: 05-17-2019 14:53-0500 Body Temperature 97.1 [degF] Alexis Iqbal LPN [facility]; [facility] Work Phone: Comment on above: Method: Temporal 05-17-2019 14:53-0500 Body weight 58.51 kg Alexis Iqbal LPN [facility]; [facility] Work Phone: 05-17-2019 14:53-0500 BP Diastolic 68 mm[Hg] Alexis Iqbal LPN [facility]; [facility] Work Phone: Comment on above: Patient Position: Sitting; Cuff Location : Left Arm; Cuff Size: Standard 05-17-2019 14:53-0500 BP Systolic 106 mm[Hg] Alexis Iqbal LPN [facility]; [facility] Work Phone: Comment on above: Patient Position: Sitting; Cuff Location : Left Arm; Cuff Size: Standard 05-17-2019 14:53-0500 BSA (Body Surface Area) 1.62 m2 Alexis Iqbal LPN [facility]; [facility] Work Phone: 05-17-2019 14:53-0500 Height 162.56 cm Alexis Iqbal LPN [facility]; [facility] Work Phone: 05-17-2019 14:53-0500 Pulse (Heart Rate) 89 /min Alexis Iqbal LPN [facility]; [facility] Work Phone: Comment on above: Pattern: Regular 05-17-2019 14:53-0500 Pulse Oximetry 98 % Dylan Velarde [facility]; [facility] Work Phone: Comment on above: Room air 05-17-2019 14:53-0500 Respiratory Rate 16 /min Alexis Iqbal LPN [facility]; [facility] Work Phone: Comment on above: Pattern: Unlabored 05-17-2019 14:53-0500 SaO2% (BldA) [Mass fraction] 98 % Alexis Iqbal LPN [facility]; [facility] Work Phone: Comment on above: Room air 03-29-2019 11:44-0500 BMI (Body Mass Index) 22.49 kg/m2 Alexis Iqbal LPN [facility]; [facility] Work Phone: 03-29-2019 11:44-0500 Body Temperature 98.1 [degF] Alexis Iqbal LPN [facility]; [facility] Work Phone: Comment on above: Method: Temporal 03-29-2019 11:44-0500 Body weight 59.43 kg Alexis Iqbal LPN [facility]; [facility] Work Phone: 03-29-2019 11:44-0500 BP Diastolic 80 mm[Hg] Alexis Iqbal LPN [facility]; [facility] Work Phone: Comment on above: Patient Position: Sitting; Cuff Location : Left Arm; Cuff Size: Standard 03-29-2019 11:44-0500 BP Systolic 110 mm[Hg] Alexis Iqbal LPN [facility]; [facility] Work Phone: Comment on above: Patient Position: Sitting; Cuff Location : Left Arm; Cuff Size: Standard 03-29-2019 11:44-0500 BSA (Body Surface Area) 1.63 m2 Alexis Iqbal LPN [facility]; [facility] Work Phone: 03-29-2019 11:44-0500 Height 162.56 cm Alexis Iqbal LPN [facility]; [facility] Work Phone: 03-29-2019 11:44-0500 Pulse (Heart Rate) 91 /min Alexis Iqbal LPN [facility]; [facility] Work Phone: Comment on above: Pattern: Regular 03-29-2019 11:44-0500 Pulse Oximetry 98 % Dylan Velarde [facility]; [facility] Work Phone: Comment on above: Room air 03-29-2019 11:44-0500 Respiratory Rate 16 /min Alexis Iqbal LPN [facility]; [facility] Work Phone: Comment on above: Pattern: Unlabored 03-29-2019 11:44-0500 SaO2% (BldA) [Mass fraction] 98 % Alexis Iqbal LPN [facility]; [facility] Work Phone: Comment on above: Room air 03-08-2019 14:24-0500 BMI (Body Mass Index) 22.49 kg/m2 Alexis Iqbal LPN [facility] Work Phone: 03-08-2019 14:24-0500 Body Temperature 97.7 [degF] Alexis Iqbal LPN [facility] Work Phone: Comment on above: Method: Temporal 03-08-2019 14:24-0500 Body weight 59.43 kg Alexis Iqbal LPN [facility] Work Phone: 03-08-2019 14:24-0500 BP Diastolic 64 mm[Hg] Alexis Iqbal LPN [facility] Work Phone: Comment on above: Patient Position: Sitting; Cuff Location : Left Arm; Cuff Size: Standard 03-08-2019 14:24-0500 BP Systolic 102 mm[Hg] Alexis Iqbal CARL [facility] Work Phone: Comment on above: Patient Position: Sitting; Cuff Location : Left Arm; Cuff Size: Standard 03-08-2019 14:24-0500 BSA (Body Surface Area) 1.63 m2 Alexis Rasheed HENRY [facility] Work Phone: 03-08-2019 14:24-0500 Height 162.56 cm Alexis Iqbal LPN [facility] Work Phone: 03-08-2019 14:24-0500 Pulse (Heart Rate) 91 /min Alexis Rasheed HENRY [facility] Work Phone: Comment on above: Pattern: Regular 03-08-2019 14:24-0500 Pulse Oximetry 98 % Dylan Velarde [facility] Work Phone: Comment on above: Room air 03-08-2019 14:24-0500 Respiratory Rate 16 /min Alexis Iqbal LPN [facility] Work Phone: Comment on above: Pattern: Unlabored 03-08-2019 14:24-0500 SaO2% (BldA) [Mass fraction] 98 % Alexis Iqbal [employer] [facility]; [facility] Work Phone: Comment on above: Room air 12-06-2018 14:49-0400 BMI (Body Mass Index) 21.8 kg/m2 Prernaheather De La Garza [employer] [facility] Work Phone: 12-06-2018 14:49-0400 Body Temperature 98.1 [degF] Prerna Slarb [employer] [facility] Work Phone: 12-06-2018 14:49-0400 Body weight 57.61 kg Prerna Slarb [employer] [facility] Work Phone: 12-06-2018 14:49-0400 BP Diastolic 78 mm[Hg] Prerna Slarb [employer] [facility] Work Phone: Comment on above: Patient Position: Sitting; Cuff Location : Left Arm; Cuff Size: Standard 12-06-2018 14:49-0400 BP Systolic 116 mm[Hg] Prerna De La Garza LPN [facility] Work Phone: Comment on above: Patient Position: Sitting; Cuff Location : Left Arm; Cuff Size: Standard 12-06-2018 14:49-0400 BSA (Body Surface Area) 1.61 m2 Prerna De La Garza LPN [facility] Work Phone: 12-06-2018 14:49-0400 Height 162.56 cm Prerna De La Garza LPN [facility] Work Phone: 12-06-2018 14:49-0400 Pulse (Heart Rate) 84 /min Prerna De La Garza LPN [facility] Work Phone: Comment on above: Pattern: Regular 12-06-2018 14:49-0400 Pulse Oximetry 95 % Dylan Velarde [facility] Work Phone: Comment on above: Room air 12-06-2018 14:49-0400 Respiratory Rate 16 /min Prerna De La Garza LPN [facility] Work Phone: Comment on above: Pattern: Unlabored 12-06-2018 14:49-0400 SaO2% (BldA) [Mass fraction] 95 % Prerna De La Garza [employer] [facility]; [facility] Work Phone: Comment on above: Room air 10-24-2018 10:20-0400 BMI (Body Mass Index) 22.04 kg/m2 Louise Cunningham [facility] Work Phone: 10-24-2018 10:20-0400 Body Temperature 97.6 [degF] Louise Cunningham [facility] Work Phone: Comment on above: Method: Temporal 10-24-2018 10:20-0400 Body weight 58.24 kg Louise Cunningham [facility] Work Phone: 10-24-2018 10:20-0400 BP Diastolic 88 mm[Hg] Louise Cunningham [facility] Work Phone: Comment on above: Patient Position: Sitting; Cuff Location : Left Arm; Cuff Size: Standard 10-24-2018 10:20-0400 BP Systolic 124 mm[Hg] Louise Cunningham [facility] Work Phone: Comment on above: Patient Position: Sitting; Cuff Location : Left Arm; Cuff Size: Standard 10-24-2018 10:20-0400 BSA (Body Surface Area) 1.62 m2 Louise Cunningham [facility] Work Phone: 10-24-2018 10:20-0400 Height 162.56 cm Louise Cunningham [facility] Work Phone: 10-24-2018 10:20-0400 Pulse (Heart Rate) 92 /min Louise Cunningham [facility] Work Phone: Comment on above: Pattern: Regular 10-24-2018 10:20-0400 Pulse Oximetry 98 % Dylan Velarde [facility] Work Phone: Comment on above: Room air 10-24-2018 10:20-0400 Respiratory Rate 18 /min Louise Cunningham [facility] Work Phone: Comment on above: Pattern: Unlabored 10-24-2018 10:20-0400 SaO2% (BldA) [Mass fraction] 98 % Louise Cunningham [facility]; [facility] Work Phone: Comment on above: Room air 10-24-2018 10:20-0400 Weight 58.24 kg Dylan Velarde [facility] Work Phone: 03-08-2018 09:56-0500 BMI (Body Mass Index) 22.31 kg/m2 Madai Mccalllear [facility] Work Phone: 03-08-2018 09:56-0500 Body Temperature 98.1 [degF] Madai Dunbar [facility] Work Phone: Comment on above: Method: Temporal 03-08-2018 09:56-0500 Body weight 58.97 kg Madai Dunbar [facility] Work Phone: 03-08-2018 09:56-0500 BP Diastolic 73 mm[Hg] Madai Dunbar [facility] Work Phone: Comment on above: Patient Position: Sitting; Cuff Location : Left Arm; Cuff Size: Standard 11-06-2018 09:56-0500 BP Systolic 110 mm[Hg] Madai Dunbar [facility] Work Phone: Comment on above: Patient Position: Sitting; Cuff Location : Left Arm; Cuff Size: Standard 03-08-2018 09:56-0500 BSA (Body Surface Area) 1.63 m2 Madai Dunbar [facility] Work Phone: 03-08-2018 09:56-0500 Height 162.56 cm Madai Dunbar [facility] Work Phone: 03-08-2018 09:56-0500 Pulse (Heart Rate) 96 /min Madai Dunbar [facility] Work Phone: Comment on above: Pattern: Regular 03-08-2018 09:56-0500 Pulse Oximetry 98 % Dylan Velarde [facility] Work Phone: Comment on above: Room air 03-08-2018 09:56-0500 Respiratory Rate 18 /min Madai Dunbar [facility] Work Phone: Comment on above: Pattern: Unlabored 03-08-2018 09:56-0500 SaO2% (BldA) [Mass fraction] 98 % Madai Dunbar [facility]; [facility] Work Phone: Comment on above: Room air 03-08-2018 09:56-0500 Weight 58.97 kg Dylan Velarde [facility] Work Phone: 02-11-2018 11:16-0400 BMI (Body Mass Index) 22.31 kg/m2 Madai Dunbar [facility] Work Phone: 02-11-2018 11:16-0400 Body Temperature 97.5 [degF] Madai Dunbar [facility] Work Phone: Comment on above: Method: Temporal 02-11-2018 11:16-0400 Body weight 58.97 kg Madai Dunbar [facility] Work Phone: 02-11-2018 11:16-0400 BP Diastolic 70 mm[Hg] Madai Dunbar [facility] Work Phone: Comment on above: Patient Position: Sitting; Cuff Location : Left Arm; Cuff Size: Standard 02-11-2018 11:16-0400 BP Systolic 104 mm[Hg] Madai Dunbar [facility] Work Phone: Comment on above: Patient Position: Sitting; Cuff Location : Left Arm; Cuff Size: Standard 02-11-2018 11:16-0400 BSA (Body Surface Area) 1.63 m2 Madai Dunbar [facility] Work Phone: 02-11-2018 11:16-0400 Height 162.56 cm Madai Dunbar [facility] Work Phone: 02-11-2018 11:16-0400 Pulse (Heart Rate) 76 /min Madai Dunbar [facility] Work Phone: Comment on above: Pattern: Regular 02-11-2018 11:16-0400 Pulse Oximetry 100 % Dylan Velarde [facility] Work Phone: Comment on above: Room air 02-11-2018 11:16-0400 Respiratory Rate 16 /min Madai Dunbar [facility] Work Phone: Comment on above: Pattern: Unlabored 02-11-2018 11:16-0400 SaO2% (BldA) [Mass fraction] 100 % Madai Dunbar [facility]; [facility] Work Phone: Comment on above: Room air 02-11-2018 11:16-0400 Weight 58.97 kg Dylan Velarde [facility] Work Phone: 02-07-2018 15:17-0400 BMI (Body Mass Index) 22.31 kg/m2 Madai Dunbar [facility] Work Phone: 02-07-2018 15:17-0400 Body Temperature 98.3 [degF] Madai Dunbar [facility] Work Phone: Comment on above: Method: Temporal 02-07-2018 15:17-0400 Body weight 58.97 kg Madai Dunbar [facility] Work Phone: 02-07-2018 15:17-0400 BP Diastolic 68 mm[Hg] Madai Dunbar [facility] Work Phone: Comment on above: Patient Position: Sitting; Cuff Location : Left Arm; Cuff Size: Standard 02-07-2018 15:17-0400 BP Systolic 102 mm[Hg] Madai Dunbar [facility] Work Phone: Comment on above: Patient Position: Sitting; Cuff Location : Left Arm; Cuff Size: Standard 02-07-2018 15:17-0400 BSA (Body Surface Area) 1.63 m2 Madai Dunbar [facility] Work Phone: 02-07-2018 15:17-0400 Height 162.56 cm Madai Dunbar [facility] Work Phone: 02-07-2018 15:17-0400 Pulse (Heart Rate) 102 /min Madai Dunbar [facility] Work Phone: Comment on above: Pattern: Regular 02-07-2018 15:17-0400 Pulse Oximetry 99 % Dylan Velarde [facility] Work Phone: Comment on above: Room air 02-07-2018 15:17-0400 Respiratory Rate 16 /min Madai Dunbar [facility] Work Phone: Comment on above: Pattern: Unlabored 02-07-2018 15:17-0400 SaO2% (BldA) [Mass fraction] 99 % Madai Dunbar [facility]; [facility] Work Phone: Comment on above: Room air 02-07-2018 15:17-0400 Weight 58.97 kg Dylan Velarde [facility] Work Phone: 01-24-2018 14:29-0400 BMI (Body Mass Index) 22.06 kg/m2 Madai Dunbar [facility] Work Phone: 01-24-2018 14:29-0400 Body Temperature 98.2 [degF] Madai Dunbar [facility] Work Phone: Comment on above: Method: Temporal 01-24-2018 14:29-0400 Body weight 58.29 kg Madai Dunbar [facility] Work Phone: 01-24-2018 14:29-0400 BP Diastolic 62 mm[Hg] Madai Dunbar [facility] Work Phone: Comment on above: Patient Position: Sitting; Cuff Location : Left Arm; Cuff Size: Standard 01-24-2018 14:29-0400 BP Systolic 108 mm[Hg] Madai Dunbar [facility] Work Phone: Comment on above: Patient Position: Sitting; Cuff Location : Left Arm; Cuff Size: Standard 01-24-2018 14:29-0400 BSA (Body Surface Area) 1.62 m2 Madai Dunbar [facility] Work Phone: 01-24-2018 14:29-0400 Height 162.56 cm Madai Dunbar [facility] Work Phone: 01-24-2018 14:29-0400 Pulse (Heart Rate) 96 /min Madai Dunbar [facility] Work Phone: Comment on above: Pattern: Regular 01-24-2018 14:29-0400 Pulse Oximetry 97 % Dylan Velarde [facility] Work Phone: Comment on above: Room air 01-24-2018 14:29-0400 Respiratory Rate 16 /min Madai Dunbar [facility] Work Phone: Comment on above: Pattern: Unlabored 01-24-2018 14:29-0400 SaO2% (BldA) [Mass fraction] 97 % Madai Dunbar [facility]; [facility] Work Phone: Comment on above: Room air 01-24-2018 14:290400 Weight 58.29 kg Dylan Velarde [facility] Work Phone: 12-24-2017 10:09-0400 BMI (Body Mass Index) 23.54 kg/m2 Madai Dunbar [facility] Work Phone: 12-24-2017 10:040 Body Temperature 96.8 [degF] Madai Dunbar [facility] Work Phone: Comment on above: Method: Temporal 12-24-2017 10:040 Body weight 62.2 kg Madai Dunbar [facility] [facility] Internal Medicine Work Phone: 12-24-2017 10:09-0400 BP Diastolic 72 mm[Hg] Madai Dunbar [facility] Internal Medicine Work Phone: Comment on above: Patient Position: Sitting; Cuff Location : Left Arm; Cuff Size: Standard 12-24-2017 10:09-0400 BP Systolic 102 mm[Hg] Madai Dunbar [facility] Internal Medicine Work Phone: Comment on above: Patient Position: Sitting; Cuff Location : Left Arm; Cuff Size: Standard 12-24-2017 10:09-0400 BSA (Body Surface Area) 1.67 m2 Madai Dunbar [facility] Internal Medicine Work Phone: 12-24-2017 10:09-0400 Height 162.56 cm Madai Dunbar [facility] Internal Medicine Work Phone: 12-24-2017 10:09-0400 Pulse (Heart Rate) 101 /min Madai Dunbar [facility] Internal Medicine Work Phone: Comment on above: Pattern: Regular 12-24-2017 10:09-0400 Pulse Oximetry 99 % Dylan Velarde [facility] Internal Medicine Work Phone: Comment on above: Room air 12-24-2017 10:09-0400 Respiratory Rate 16 /min Madai Dunbar [facility] Internal Medicine Work Phone: Comment on above: Pattern: Unlabored 12-24-2017 10:09-0400 SaO2% (BldA) [Mass fraction] 99 % Madai Dunbar [facility]; [facility] Work Phone: Comment on above: Room air 12-24-2017 10:09-0400 Weight 62.2 kg Dylan Velarde [facility] Internal Medicine Work Phone: 12-23-2017 12:57-0400 BMI (Body Mass Index) 23.54 kg/m2 Madai Dunbar [facility] Internal Medicine Work Phone: 12-23-2017 12:57-0400 Body Temperature 98.2 [degF] Madai Dunbar [facility] Internal Medicine Work Phone: Comment on above: Method: Temporal 12-23-2017 12:57-0400 Body weight 62.2 kg Madai Dunbar [facility] Internal Medicine Work Phone: 12-23-2017 12:57-0400 BP Diastolic 60 mm[Hg] Madai Dunbar [facility] Internal Medicine Work Phone: Comment on above: Patient Position: Sitting; Cuff Location : Left Arm; Cuff Size: Standard 12-23-2017 12:57-0400 BP Systolic 108 mm[Hg] Madai Dunbar [facility] Internal Medicine Work Phone: Comment on above: Patient Position: Sitting; Cuff Location : Left Arm; Cuff Size: Standard 12-23-2017 12:57-0400 BSA (Body Surface Area) 1.67 m2 Madai Dunbar [facility] Internal Medicine Work Phone: 12-23-2017 12:57-0400 Height 162.56 cm Madai Dunbar [facility] Internal Medicine Work Phone: 12-23-2017 12:57-0400 Pulse (Heart Rate) 80 /min Madai Dunbar [facility] Internal Medicine Work Phone: Comment on above: Pattern: Regular 12-23-2017 12:57-0400 Pulse Oximetry 97 % Dylan Velarde [facility] Internal Medicine Work Phone: Comment on above: Room air 12-23-2017 12:57-0400 Respiratory Rate 16 /min Madai Dunbar [facility] Internal Medicine Work Phone: Comment on above: Pattern: Unlabored 12-23-2017 12:57-0400 SaO2% (BldA) [Mass fraction] 97 % Madai Dunbar [facility]; [facility] Work Phone: Comment on above: Room air 12-23-2017 12:57-0400 Weight 62.2 kg Dylan Velarde [facility] Internal Medicine Work Phone: 11-30-2017 14:59-0400 BMI (Body Mass Index) 23.54 kg/m2 Nancy Rocha RN [facility] Internal Medicine Work Phone: 11-30-2017 14:59-0400 Body Temperature 97.7 [degF] Nancy Rocha RN [facility] Internal Medicine Work Phone: 11-30-2017 14:59-0400 Body weight 62.2 kg Nancy Rocha RN [facility] Internal Medicine Work Phone: 11-30-2017 14:59-0400 BP Diastolic 76 mm[Hg] Nancy Rocha RN [facility] Work Phone: Comment on above: Patient Position: Sitting; Cuff Location : Left Arm; Cuff Size: Standard 11-30-2017 14:59-0400 BP Systolic 118 mm[Hg] Nancy Vadim Aj RN [facility] Work Phone: Comment on above: Patient Position: Sitting; Cuff Location : Left Arm; Cuff Size: Standard 11-30-2017 14:59-0400 BSA (Body Surface Area) 1.67 m2 Nancy Rocha RN [facility] Work Phone: 11-30-2017 14:59-0400 Height 162.56 cm Nancy Rocha RN [facility] Work Phone: 11-30-2017 14:59-0400 Pulse (Heart Rate) 78 /min Nancy Rocha RN [facility] Work Phone: Comment on above: Pattern: Regular 11-30-2017 14:59-0400 Respiratory Rate 16 /min Nancy Rocha RN [facility] Work Phone: Comment on above: Pattern: Unlabored 11-30-2017 14:59-0400 Weight 62.2 kg Dylan Velarde [facility] Internal Medicine Work Phone: 08-03-2017 15:01-0400 BMI (Body Mass Index) 23.54 kg/m2 Alethea Iqbal [facility] Internal Medicine Work Phone: 08-03-2017 15:01-0400 Body Temperature 97.8 [degF] Alethea Iqbal [facility] Internal Medicine Work Phone: 08-03-2017 15:01-0400 Body weight 62.2 kg Alethea Iqbal [facility] Internal Medicine Work Phone: 08-03-2017 15:01-0400 BP Diastolic 80 mm[Hg] Alethea Iqbal [facility] Internal Medicine Work Phone: Comment on above: Patient Position: Sitting; Cuff Location : Left Arm; Cuff Size: Standard 08-03-2017 15:01-0400 BP Systolic 116 mm[Hg] Alethea Iqbal [facility] Internal Medicine Work Phone: Comment on above: Patient Position: Sitting; Cuff Location : Left Arm; Cuff Size: Standard 08-03-2017 15:01-0400 BSA (Body Surface Area) 1.67 m2 Alethea Iqbal [facility] Internal Medicine Work Phone: 08-03-2017 15:-0400 Height 162.56 cm Alethea Iqbal [facility] Internal Medicine Work Phone: 08-03-2017 15:01-0400 Pulse (Heart Rate) 91 /min Alethea Iqbal [facility] Internal Medicine Work Phone: Comment on above: Pattern: Regular 08-03-2017 15:01-0400 Pulse Oximetry 98 % Dylan Velarde [facility] Internal Medicine Work Phone: Comment on above: Room air 08-03-2017 15:01-0400 Respiratory Rate 18 /min Alethea Iqbal [facility] Internal Medicine Work Phone: Comment on above: Pattern: Unlabored 08-03-2017 15:01-0400 SaO2% (BldA) [Mass fraction] 98 % Alethea Iqbal [facility]; [facility] Work Phone: Comment on above: Room air 08-03-2017 15:01-0400 Weight 62.2 kg Dylan Velarde [facility] Internal Medicine Work Phone: 05-31-2017 15:23-0500 BMI (Body Mass Index) 23.54 kg/m2 Kaylyn Portillo RN [facility] Work Phone: 05-31-2017 15:23-0500 Body weight 62.2 kg Kaylyn Portillo RN [facility] Work Phone: 05-31-2017 15:23-0500 BP Diastolic 68 mm[Hg] Kaylyn Portillo RN [facility] Work Phone: 05-31-2017 15:23-0500 BP Systolic 120 mm[Hg] Kaylyn Portillo RN [facility] Work Phone: 05-31-2017 15:23-0500 BSA (Body Surface Area) 1.67 m2 Kaylyn Portillo RN [facility] Work Phone: 05-31-2017 15:23-0500 Height 162.56 cm Kaylyn Portillo RN [facility] Work Phone: 05-31-2017 15:23-0500 Pulse (Heart Rate) 94 /min Kaylyn Portillo RN [facility] Work Phone: Comment on above: Pattern: Regular 05-31-2017 15:23-0500 Pulse Oximetry 99 % Dylan Velarde [facility] Internal Medicine Work Phone: Comment on above: Room air 05-31-2017 15:23-0500 Respiratory Rate 18 /min Kaylyn Portillo RN [facility] Work Phone: Comment on above: Pattern: Unlabored 05-31-2017 15:23-0500 SaO2% (BldA) [Mass fraction] 99 % Kaylyn Portillo RN [facility]; [facility] Work Phone: Comment on above: Room air 05-31-2017 15:23-0500 Weight 62.2 kg Dylan Velarde [facility] Internal Medicine Work Phone: 03-02-2017 15:29-0400 BMI (Body Mass Index) 21.5 kg/m2 Prerna Slarb E [employer] [facility] Internal Medicine Work Phone: 03-02-2017 15:29-0400 Body Temperature 97.9 [degF] Prerna Slarb CARL [facility] Internal Medicine Work Phone: 03-02-2017 15:29-0400 Body weight 56.81 kg Prerna Slarb CARL [facility] Internal Medicine Work Phone: 03-02-2017 15:29-0400 BP Diastolic 72 mm[Hg] Prerna Slarb [employer] [facility] Internal Medicine Work Phone: Comment on above: Patient Position: Sitting; Cuff Location : Left Arm; Cuff Size: Standard 03-02-2017 15:29-0400 BP Systolic 118 mm[Hg] Prerna Slarb [employer] [facility] Internal Medicine Work Phone: Comment on above: Patient Position: Sitting; Cuff Location : Left Arm; Cuff Size: Standard 03-02-2017 15:29-0400 BSA (Body Surface Area) 1.6 m2 Prerna Slarb [employer] [facility] Internal Medicine Work Phone: 03-02-2017 15:29-0400 Height 162.56 cm Prerna Slarb [employer] [facility] Work Phone: 03-02-2017 15:29-0400 Pulse (Heart Rate) 73 /min Prerna Iqbalrb [employer] [facility] Work Phone: Comment on above: Pattern: Regular 03-02-2017 15:29-0400 Pulse Oximetry 99 % Dylan Velarde [facility] Internal Medicine Work Phone: Comment on above: Room air 03-02-2017 15:29-0400 Respiratory Rate 16 /min Prerna Faridarb [employer] [facility] Internal Medicine Work Phone: Comment on above: Pattern: Unlabored 03-02-2017 15:29-0400 SaO2% (BldA) [Mass fraction] 99 % Prerna Slarb [employer] [facility]; [facility] Work Phone: Comment on above: Room air 03-02-2017 15:29-0400 Weight 56.81 kg Dylan Velarde [facility] Internal Medicine Work Phone: 02-10-2017 11:09-0400 BMI (Body Mass Index) 21.5 kg/m2 Prerna Faridarb [employer] [facility] Work Phone: 02-10-2017 11:09-0400 Body Temperature 97.9 [degF] Prerna Slarb [employer] [facility] Work Phone: 02-10-2017 11:09-0400 Body weight 56.81 kg Prerna Slarb [employer] [facility] Work Phone: 02-10-2017 11:09-0400 BP Diastolic 70 mm[Hg] Prerna Slarb [employer] [facility] Work Phone: Comment on above: Patient Position: Sitting; Cuff Location : Left Arm; Cuff Size: Standard 02-10-2017 11:09-0400 BP Systolic 98 mm[Hg] Prerna Slarb [employer] [facility] Work Phone: Comment on above: Patient Position: Sitting; Cuff Location : Left Arm; Cuff Size: Standard 02-10-2017 11:090400 BSA (Body Surface Area) 1.6 m2 Prerna De La Garza LPN [facility] Work Phone: 02-10-2017 11:090400 Height 162.56 cm Prerna De La Garza LPN [facility] Work Phone: 02-10-2017 11:09-0400 Pulse (Heart Rate) 94 /min Prerna De La Garza LPN [facility] Work Phone: Comment on above: Pattern: Regular 02-10-2017 11:090400 Pulse Oximetry 97 % Dylan Velarde [facility] Internal Medicine Work Phone: Comment on above: Room air 02-10-2017 11:090400 Respiratory Rate 18 /min Prerna De La Garza LPN [facility] Work Phone: Comment on above: Pattern: Unlabored 02-10-2017 11:0400 SaO2% (BldA) [Mass fraction] 97 % Prerna De La Garza [employer] [facility]; [facility] Work Phone: Comment on above: Room air 02-10-2017 11:090400 Weight 56.81 kg Dylan Velarde [facility] Work Phone: 05-19-2016 15:38-0500 BMI (Body Mass Index) 21.28 kg/m2 Prerna De La Garza E [employer] [facility] Work Phone: 05-19-2016 15:38-0500 Body Temperature 98.4 [degF] Prerna De La Garza E [employer] [facility] Work Phone: 05-19-2016 15:38-0500 Body weight 56.25 kg Preran Iqbalrb [employer] [facility] Work Phone: 05-19-2016 15:38-0500 BP Diastolic 68 mm[Hg] Prerna Faridarb [employer] [facility] Work Phone: Comment on above: Patient Position: Sitting; Cuff Location : Left Arm; Cuff Size: Standard 05-19-2016 15:38-0500 BP Systolic 108 mm[Hg] Prerna Iqbalrb [employer] [facility] Work Phone: Comment on above: Patient Position: Sitting; Cuff Location : Left Arm; Cuff Size: Standard 05-19-2016 15:38-0500 BSA (Body Surface Area) 1.6 m2 Prerna Faridarb [employer] [facility] Work Phone: 05-19-2016 15:38-0500 Height 162.56 cm Prerna Faridarb [employer] [facility] Work Phone: 05-19-2016 15:38-0500 Pulse (Heart Rate) 84 /min Prerna Faridarb [employer] [facility] Work Phone: Comment on above: Pattern: Regular 05-19-2016 15:38-0500 Pulse Oximetry 98 % Dylan Velarde [facility] Internal Medicine Work Phone: Comment on above: Room air 05-19-2016 15:38-0500 Respiratory Rate 17 /min Prerna Faridarb [employer] [facility] Work Phone: Comment on above: Pattern: Unlabored 05-19-2016 15:38-0500 SaO2% (BldA) [Mass fraction] 98 % Prerna Slarb [employer] [facility]; [facility] Work Phone: Comment on above: Room air 05-19-2016 15:38-0500 Weight 56.25 kg Dylan Velarde [facility] Internal Medicine Work Phone: 01-31-2016 08:12-0400 BMI (Body Mass Index) 21.16 kg/m2 Prerna Slarb [employer] [facility] Work Phone: 01-31-2016 08:12-0400 Body Temperature 98.6 [degF] Prerna Slarb [employer] [facility] Work Phone: 01-31-2016 08:12-0400 Body weight 55.91 kg Prerna Slarb [employer] [facility] Work Phone: 01-31-2016 08:12-0400 BP Diastolic 64 mm[Hg] Prerna Slarb [employer] [facility] Work Phone: Comment on above: Patient Position: Sitting; Cuff Location : Left Arm; Cuff Size: Standard 01-31-2016 08:12-0400 BP Systolic 102 mm[Hg] Prerna De La Garza LPN [facility] Work Phone: Comment on above: Patient Position: Sitting; Cuff Location : Left Arm; Cuff Size: Standard 01-31-2016 08:12-0400 BSA (Body Surface Area) 1.59 m2 Prerna De La Garza LPN [facility] Work Phone: 01-31-2016 08:12-0400 Height 162.56 cm Prerna De La Garza LPN [facility] Work Phone: 01-31-2016 08:12-0400 Pulse (Heart Rate) 93 /min Prerna De La Garza LPN [facility] Work Phone: Comment on above: Pattern: Regular 01-31-2016 08:12-0400 Pulse Oximetry 99 % Dylan Velarde [facility] Work Phone: Comment on above: Room air 01-31-2016 08:12-0400 Respiratory Rate 17 /min Prerna De La Garza [employer] [facility] Work Phone: Comment on above: Pattern: Unlabored 01-31-2016 08:12-0400 SaO2% (BldA) [Mass fraction] 99 % Prerna De La Garza [employer] [facility]; [facility] Work Phone: Comment on above: Room air 01-31-2016 08:12-0400 Weight 55.91 kg Dylan Velarde [facility] Internal Medicine Work Phone: 10-10-2015 09:23-0400 BMI (Body Mass Index) 20.17 kg/m2 Pierce Beckham [facility] Work Phone: 10-10-2015 09:23-0400 Body Temperature 98 [degF] Pierce Armstrongisabella [facility] Work Phone: 10-10-2015 09:23-0400 Body weight 53.3 kg Pierce Armstrongisabella [facility] Work Phone: 10-10-2015 09:23-0400 BP Diastolic 58 mm[Hg] [facility] Internal Medicine Work Phone: Comment on above: Patient Position: Sitting; Cuff Location : Left Arm; Cuff Size: Standard 10-10-2015 09:23-0400 BP Systolic 108 mm[Hg] [facility] Internal Medicine Work Phone: Comment on above: Patient Position: Sitting; Cuff Location : Left Arm; Cuff Size: Standard 10-10-2015 09:23-0400 BSA (Body Surface Area) 1.56 m2 [facility] Internal Medicine Work Phone: 10-10-2015 09:23-0400 Height 162.56 cm [facility] Internal Medicine Work Phone: 10-10-2015 09:23-0400 Pulse (Heart Rate) 91 /min [facility] Internal Medicine Work Phone: Comment on above: Pattern: Regular 10-10-2015 09:23-0400 Pulse Oximetry 98 % Dylan [facility] Internal Medicine Work Phone: Comment on above: Room air 10-10-2015 09:23-0400 Respiratory Rate 16 /min [facility] Internal Medicine Work Phone: Comment on above: Pattern: Unlabored 10-10-2015 09:23-0400 SaO2% (BldA) [Mass fraction] 98 % [facility] Internal [facility]; [facility] Work Phone: Comment on above: Room air 10-10-2015 09:23-0400 Weight 53.3 kg Dylan Velarde [facility] Internal Medicine Work Phone: 08-30-2015 09:13-0400 BMI (Body Mass Index) 20.68 kg/m2 Prerna De La Garza LPN [facility] Internal Medicine Work Phone: 08-30-2015 09:13-0400 Body Temperature 97.6 [degF] Prerna De La Garza LPN [facility] Internal Medicine Work Phone: 08-30-2015 09:13-0400 Body weight 54.66 kg Prerna Slarb [employer] [facility] Work Phone: 08-30-2015 09:13-0400 BP Diastolic 66 mm[Hg] Prerna Faridarb [employer] [facility] Work Phone: Comment on above: Patient Position: Sitting; Cuff Location : Left Arm; Cuff Size: Standard 08-30-2015 09:13-0400 BP Systolic 108 mm[Hg] Prerna Faridarb [employer] [facility] Work Phone: Comment on above: Patient Position: Sitting; Cuff Location : Left Arm; Cuff Size: Standard 08-30-2015 09:13-0400 BSA (Body Surface Area) 1.58 m2 Prerna Iqbalrb [employer] [facility] Work Phone: 08-30-2015 09:130400 Height 162.56 cm Prerna Iqbalrb [employer] [facility] Work Phone: 08-30-2015 09:13-0400 Pulse (Heart Rate) 73 /min Prerna De La Garza [employer] [facility] Work Phone: Comment on above: Pattern: Regular 08-30-2015 09:13-0400 Pulse Oximetry 99 % Dylan Velarde [facility] Internal Medicine Work Phone: Comment on above: Room air 08-30-2015 09:13-0400 Respiratory Rate 16 /min Prerna De La Garza [employer] [facility] Work Phone: Comment on above: Pattern: Unlabored 08-30-2015 09:13-0400 SaO2% (BldA) [Mass fraction] 99 % Prerna Iqbalrb [employer] [facility]; [facility] Work Phone: Comment on above: Room air 08-30-2015 09:13-0400 Weight 54.66 kg Dylan Velarde [facility] Internal Medicine Work Phone: 08-09-2015 09:09-0400 BMI (Body Mass Index) 20.68 kg/m2 Prerna Faridarb [employer] [facility] Work Phone: 08-09-2015 09:09-0400 Body Temperature 97.6 [degF] Prerna Faridarb [employer] [facility] Work Phone: 08-09-2015 09:09-0400 Body weight 54.66 kg Prerna De La Garza [employer] [facility] Work Phone: 08-09-2015 09:09-0400 BP Diastolic 68 mm[Hg] Prerna Slarb [employer] [facility] Work Phone: Comment on above: Patient Position: Sitting; Cuff Location : Left Arm; Cuff Size: Standard 08-09-2015 09:09-0400 BP Systolic 114 mm[Hg] Prerna Faridarb [employer] [facility] Work Phone: Comment on above: Patient Position: Sitting; Cuff Location : Left Arm; Cuff Size: Standard 08-09-2015 09:09-0400 BSA (Body Surface Area) 1.58 m2 Prerna Faridarb [employer] [facility] Work Phone: 08-09-2015 09:09-0400 Height 162.56 cm Prerna Faridarb [employer] [facility] Work Phone: 08-09-2015 09:09-0400 Pulse (Heart Rate) 104 /min Prerna De La Garza LPN [facility] Work Phone: Comment on above: Pattern: Regular 08-09-2015 09:09-0400 Pulse Oximetry 99 % Dylan Velarde [facility] Work Phone: Comment on above: Room air 08-09-2015 09:09-0400 Respiratory Rate 16 /min Prerna Iqbalrb E [employer] [facility] Work Phone: Comment on above: Pattern: Unlabored 08-09-2015 09:09-0400 SaO2% (BldA) [Mass fraction] 99 % Prerna Iqbalrb E [employer] [facility]; [facility] Work Phone: Comment on above: Room air 08-09-2015 09:09-0400 Weight 54.66 kg Dylan Velarde [facility] Work Phone: 06-28-2015 08:35-0500 BMI (Body Mass Index) 20.94 kg/m2 Kaylyn Portillo RN [facility] Work Phone: 06-28-2015 08:35-0500 Body weight 55.34 kg Kaylyn Portillo RN [facility] Work Phone: 06-28-2015 08:35-0500 BP Diastolic 68 mm[Hg] Kaylyn Portillo RN [facility] Work Phone: Comment on above: Patient Position: Sitting; Cuff Location : Left Arm; Cuff Size: Standard 06-28-2015 08:35-0500 BP Systolic 102 mm[Hg] Kaylyn Portillo RN [facility] Work Phone: Comment on above: Patient Position: Sitting; Cuff Location : Left Arm; Cuff Size: Standard 06-28-2015 08:35-0500 BSA (Body Surface Area) 1.59 m2 Kaylyn Portillo RN [facility] Work Phone: 06-28-2015 08:35-0500 Height 162.56 cm Kaylyn Portillo RN [facility] Work Phone: 06-28-2015 08:35-0500 Pulse (Heart Rate) 94 /min Kaylyn Portillo RN [facility] Work Phone: Comment on above: Pattern: Regular 06-28-2015 08:35-0500 Pulse Oximetry 99 % Dylan Bakerjv [facility] Work Phone: Comment on above: Room air 06-28-2015 08:35-0500 Respiratory Rate 18 /min Kaylyn Portillo RN [facility] Work Phone: Comment on above: Pattern: Unlabored 06-28-2015 08:35-0500 SaO2% (BldA) [Mass fraction] 99 % Kaylyn Portillo RN [facility]; [facility] Work Phone: Comment on above: Room air 06-28-2015 08:35-0500 Weight 55.34 kg Dylan Patheather [facility] Work Phone: 05-31-2015 08:38-0500 BMI (Body Mass Index) 20.15 kg/m2 Kaylyn Portillo RN [facility] Work Phone: 05-31-2015 08:38-0500 Body weight 53.24 kg Kaylyn Portillo RN [facility] Work Phone: 05-31-2015 08:38-0500 BP Diastolic 60 mm[Hg] Kaylyn Portillo RN [facility] Work Phone: Comment on above: Patient Position: Sitting; Cuff Location : Right Arm; Cuff Size: Standard 05-31-2015 08:38-0500 BP Systolic 110 mm[Hg] Kaylyn Portillo RN [facility] Work Phone: Comment on above: Patient Position: Sitting; Cuff Location : Right Arm; Cuff Size: Standard 05-31-2015 08:38-0500 BSA (Body Surface Area) 1.56 m2 Kaylyn Portillo RN [facility] Work Phone: 05-31-2015 08:38-0500 Height 162.56 cm Kaylyn Portillo RN [facility] Work Phone: 05-31-2015 08:38-0500 Pulse (Heart Rate) 110 /min Kaylyn Portillo RN [facility] Work Phone: Comment on above: Pattern: Regular 05-31-2015 08:38-0500 Pulse Oximetry 98 % Dylan Bakerjv [facility] Work Phone: Comment on above: Room air 05-31-2015 08:38-0500 SaO2% (BldA) [Mass fraction] 98 % Kaylyn Portillo RN [facility]; [facility] Work Phone: Comment on above: Room air 05-31-2015 08:38-0500 Weight 53.24 kg Dylan Velarde [facility] Work Phone: 03-01-2015 10:02-0400 BMI (Body Mass Index) 20.47 kg/m2 Prerna De La Garza LPN [facility] Internal Medicine Work Phone: 03-01-2015 10:02-0400 Body Temperature 97.8 [degF] Prerna De La Garza LPN [facility] Work Phone: 03-01-2015 10:02-0400 Body weight 54.09 kg Prerna De La Garza LPN [facility] Internal Medicine Work Phone: 03-01-2015 10:02-0400 BP Diastolic 64 mm[Hg] Prerna De La Garza LPN [facility] Internal Medicine Work Phone: Comment on above: Patient Position: Sitting; Cuff Location : Left Arm; Cuff Size: Standard 03-01-2015 10:02-0400 BP Systolic 102 mm[Hg] Prerna De La Garza LPN [facility] Work Phone: Comment on above: Patient Position: Sitting; Cuff Location : Left Arm; Cuff Size: Standard 03-01-2015 10:02-0400 BSA (Body Surface Area) 1.57 m2 Prerna De La Garza LPN [facility] Work Phone: 03-01-2015 10:02-0400 Height 162.56 cm Prerna De La Garza E [employer] [facility] Work Phone: 03-01-2015 10:02-0400 Pulse (Heart Rate) 88 /min Prerna De La Garza E [employer] Comprehensiv e Internal Medicine Work Phone: Comment on above: Pattern: Regular 03-01-2015 10:02-0400 Pulse Oximetry 98 % Dylan Velarde [facility] Internal Medicine Work Phone: Comment on above: Room air 03-01-2015 10:02-0400 Respiratory Rate 16 /min Prerna De La Garza LPN [facility] Work Phone: Comment on above: Pattern: Unlabored 03-01-2015 10:02-0400 SaO2% (BldA) [Mass fraction] 98 % Prerna De La Garza LPN [facility]; [facility] Work Phone: Comment on above: Room air 03-01-2015 10:02-0400 Weight 54.09 kg Dylan Velarde [facility] Internal Medicine Work Phone: 02-26-2015 10:25-0400 BMI (Body Mass Index) 20.47 kg/m2 Prerna Iqbalrb E [employer] Comprehen sive Internal Medicine Work Phone: 02-26-2015 10:25-0400 Body Temperature 98 [degF] Prerna De La Garza E [employer] [facility] Work Phone: 02-26-2015 10:25-0400 Body weight 54.09 kg Prerna De La Garza E [employer] [facility] Work Phone: 02-26-2015 10:25-0400 BP Diastolic 66 mm[Hg] Prerna Slarb E [employer] [facility] Work Phone: Comment on above: Patient Position: Sitting; Cuff Location : Left Arm; Cuff Size: Standard 02-26-2015 10:25-0400 BP Systolic 104 mm[Hg] Prerna Slarb E [employer] [facility] Work Phone: Comment on above: Patient Position: Sitting; Cuff Location : Left Arm; Cuff Size: Standard 02-26-2015 10:25-0400 BSA (Body Surface Area) 1.57 m2 Prerna Slarb E [employer] [facility] Work Phone: 02-26-2015 10:25-0400 Height 162.56 cm Prerna Slarb E [employer] [facility] Work Phone: 02-26-2015 10:25-0400 Pulse (Heart Rate) 82 /min Prerna Faridarb E [employer] Comprehensiv e Internal Medicine Work Phone: Comment on above: Pattern: Regular 02-26-2015 10:25-0400 Pulse Oximetry 97 % Dylan Velarde [facility] Work Phone: Comment on above: Room air 02-26-2015 10:25-0400 Respiratory Rate 16 /min Prerna Faridarb E [employer] [facility] Work Phone: Comment on above: Pattern: Unlabored 02-26-2015 10:25-0400 SaO2% (BldA) [Mass fraction] 97 % Prerna Slarb E [employer] [facility]; [facility] Work Phone: Comment on above: Room air 02-26-2015 10:25-0400 Weight 54.09 kg Dylan Velarde [facility] Internal Medicine Work Phone: Encounters Encounter Date Encounter Type Care Provider Facility Start: 11-02-2024 End: 11-02-[address] Donna Perdomo MD Work Phone: -[facility] Start: 11-02-2024 End: 11-02-[address] Leander Patel MD -[facility] Work Phone: Start: 10-13-2024 End: 10-13-[address] Donna Perdomo MD Work Phone: [facility] Work Phone: Start: 10-13-2024 End: 10-13-2024 Patient encounter procedure Louise Torrez SHEET METAL WORK FURNACE INSTALLER-C -Radiology [facility] Work Phone: Start: 10-13-2024 End: 10-13-2024 Patient encounter procedure Louise Torrez SHEET METAL WORK FURNACE INSTALLER-C -[facility] Work Phone: Start: 10-13-2024 End: 10-13-[address] Donna Perdomo MD Work Phone: [facility] Work Phone: Start: 10-13-2024 End: 10-13-2024 ambulatory Leander Patel Facility:[facility] Start: 10-06-2024 End: 10-09-2024 Evaluation and management of inpatient JOHANLEE ANN LUJAN Facility:[facility] Start: 10-06-2024 End: 10-07-2024 ambulatory Rivka Richards APRN.PLATFORM MATERIAL HANDLING SUPERVISOR Work Phone: Critical Care Start: 10-06-2024 End: 10-06-2024 Emergency department patient visit Dr. Donna Perdomo MD Work Phone: -Emergency Department Work Phone: Start: 10-03-2024 End: 10-03-[address] Donna Perdomo MD Work Phone: [facility] Work Phone: Start: 10-03-2024 End: 10-03-2024 Patient encounter procedure Katie TAYLOR -Nuclear Medicine [facility] Work Phone: Start: 10-03-2024 End: 10-03-2024 ambulatory Katie Mayo Facility:[facility] Start: 09-14-2024 End: 09-14-2024 Patient encounter procedure Katie TAYLOR -[facility] Work Phone: Start: 09-14-2024 End: 09-14-[address] Donna Perdomo MD Work Phone: [facility] Work Phone: Start: 08-23-2024 End: 08-23-[address] Kendall Encarnacion MD -Laboratory Work Phone: Start: 08-23-2024 End: 08-23-2024 ambulatory [facility] Facility:[facility] Start: 08-21-2024 End: 08-21-2024 Patient encounter procedure Katie Mayo PA -Radiology, [facility] Work Phone: Start: 08-21-2024 End: 08-21-2024 ambulatory [facility] Facility:[facility] Start: 08-18-2024 End: 08-18-2024 Emergency department patient visit Dr. Donna Perdomo MD Work Phone: -Emergency Department Work Phone: Start: 08-16-2024 End: 08-16-2024 Patient encounter procedure Katie TAYLOR -Laboratory Work Phone: Start: 08-16-2024 End: 08-16-[address] Donna Perdomo MD Work Phone: [facility] Work Phone: Start: 08-16-2024 End: 08-16-2024 ambulatory [facility] Facility:[facility] Start: 08-05-2024 End: 08-05-[address] Donna Perdomo MD Work Phone: [facility] Work Phone: Start: 08-05-2024 End: 08-05-[address] Kendall Encarnacion MD -Laboratory Work Phone: Start: 08-05-2024 End: 08-05-2024 ambulatory [facility] Facility:[facility] Start: 07-26-2024 End: 07-26-[address] Leander Patel MD -[facility] Work Phone: Start: 07-26-2024 End: 07-26-2024 ambulatory Leander Patel Facility:[facility] Start: 07-18-2024 End: 07-18-[address] Donna Perdomo MD Work Phone: [facility] Work Phone: Start: 07-18-2024 End: 07-18-[address] Kendall Encarnacion MD -Pulmonary Services/Neurology Work Phone: Start: 07-18-2024 End: 07-18-2024 ambulatory [facility] Facility:[facility] Start: 07-06-2024 End: 07-06-[address] Kendall Encarnacion MD -[facility] Work Phone: Start: 07-06-2024 End: 07-06-2024 ambulatory Donna Perdomo Facility:[facility] Start: 04-17-2024 End: 04-17-[address] Kendall Encarnacion MD -Laboratory Work Phone: Start: 04-17-2024 End: 04-17-2024 ambulatory [facility] Facility:[facility] Start: 04-12-2024 End: 04-12-[address] Kendall Encarnacion MD -[facility] Work Phone: Start: 04-12-2024 End: 04-12-2024 ambulatory [facility] Facility[facility] Start: 03-13-2024 End: 03-13-2024 ambulatory [facility] Facility:[facility] Start: 02-20-2024 End: 02-21-2024 [facility]: [facility] Comment on above: Localization-related (focal) (partial) idiopathic epilepsy and epileptic syndromes with seizures of localized onset, intractable, without status epilepticus Start: 01-31-2024 End: 01-31-2024 ambulatory Edgar Ayers Facility:[facility] Start: 11-01-2023 ambulatory DONNA PERDOMO Facility :[facility] Start: 10-11-2023 End: 10-11-2023 ambulatory DYLAN VELARDE Facility:[facility] Start: 10-11-2023 End: 10-11-2023 Patient encounter procedure Maya Kwame CUSTOMER SALES REPRESENTATIVE.PLATFORM MATERIAL HANDLING SUPERVISOR Work Phone: [facility] Comment on above: Sore throat (Primary Dx); Otalgia of right ear Start: 08-12-2023 End: 08-12-2023 Office outpatient visit 40 minutes Talya Rodriguez CUSTOMER SALES REPRESENTATIVE-PLATFORM MATERIAL HANDLING SUPERVISOR Work Phone: [facility] Comment on above: Localization-related (focal) (partial) idiopathic epilepsy and epileptic syndromes with seizures of localized onset, intractable, without status epilepticus (Primary Dx) Start: 08-12-2023 ambulatory TALYA RODRIGUEZ Facilit y:[facility] Start: 08-12-2023 End: 08-12-2023 Office outpatient visit 25 minutes Talya Rodriguez CUSTOMER SALES REPRESENTATIVE-PLATFORM MATERIAL HANDLING SUPERVISOR Work Phone: [facility] [place] Comment on above: MG (myasthenia gravi s) (Primary Dx) Start: 08-12-2023 ambulatory TALYA RODRIGUEZ Facilit y:[facility] Start: 05-21-2023 Telephone encounter Rupal Phillips MA [facility] Comment on above: Insurance ([employer]i ne ) Start: 02-12-2023 End: 02-12-2023 Patient encounter procedure Edgar Ayers MD Work Phone: [facility] Comment on above: MG (myasthenia gravi s) (Primary Dx) Start: 02-12-2023 End: 02-12-2023 ambulatory [id number] Start: 02-02-2023 Evaluation and management of inpatient DONNA PERDOMO Facility:[facility] Start: 12-19-2022 End: 12-19-2022 ambulatory [facility] Work Phone: Start: 12-19-2022 End: 12-19-2022 Patient encounter procedure [facility]-Laboratory Work Phone: Start: 12-03-2022 End: 12-03-2022 Office outpatient visit 25 minutes Renee Donald CUSTOMER SALES REPRESENTATIVE-PLATFORM MATERIAL HANDLING SUPERVISOR Work Phone: [facility] [place] Comment on above: MG (myasthenia gravi s) (Primary Dx) Start: 12-03-2022 ambulatory RENEE DONALD Facil it:[facility] Start: 11-13-2022 End: 11-13-2022 Office consultation new/estab patient 60 min Edgar Ayers MD Work Phone: Neurology [facility] Comment on above: Breakthrough seizure Start: 11-13-2022 ambulatory MERRICK LOPEZ Facility:[facility] Start: 10-29-2022 End: 11-02-2022 Evaluation and management of inpatient Nancy Faith MD Work Phone: [facility] Comment on above: Seizures Start: 10-29-2022 End: 10-29-2022 Emergency department patient visit [facility]-Emergency Department Work Phone: Start: 10-06-2022 End: 10-06-2022 Office consultation new/estab patient 80 min Pankaj Mejias MD Work Phone: [facility] [place] Comment on above: Myasthenia gravis (P rimary Dx); Medication management Start: 09-07-2022 End: 09-07-2022 Emergency department patient visit [facility]-Emergency Department Start: 09-04-2022 Telephone encounter Angela louie MD Work Phone: [facility] Neuroscience Comment on above: Appointment Request (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) Start: 08-08-2022 End: 08-08-2022 Emergency department patient visit [facility]-Emergency Department Start: 07-30-2022 End: 08-07-2022 Evaluation and management of inpatient WARD ZHAO [facility] Start: 07-30-2022 End: 07-30-2022 Emergency department patient visit EDWIGE BOB [facility] Start: 07-30-2022 End: 08-07-2022 Evaluation and management of inpatient Rivka Cid DO Work Phone: [facility] 7E Oncology Comment on above: Myasthenic crisis (C MS/HCC) (HCC) (Primary Dx); Adjustment reaction with anxiety and depression Start: 07-30-2022 End: 07-30-2022 Subsequent hospital visit by physician [facility] X-Ray Comment on above: Arrived Start: 07-30-2022 End: 07-30-2022 ambulatory [facility] SAK[facility] Start: 07-30-2022 End: 07-30-2022 Subsequent hospital visit by physician Renny Cantor MD Work Phone: [facility] Special Procedures Comment on above: MG (myasthenia gravi s) (HCC); Myasthenia gravis with (acute) exacerbation (HCC) Start: 07-29-2022 Transcribe Orders Physician Test Sum ma Central Scheduling Start: 07-29-2022 End: 07-29-2022 Patient encounter procedure [facility]-Laboratory Start: 07-17-2022 End: 07-17-2022 [facility] Start: 07-17-2022 End: 07-17-2022 Patient encounter procedure Zaynab Herman APRN.CNP Work Phone: [facility] Comment on above: Flank pain (Primary Dx) Start: 07-12-2022 End: 07-12-2022 Patient encounter procedure Luis TAYLOR Work Phone: [facility] Comment on above: URI, acute (Primary Dx) Start: 05-27-2022 End: 05-27-2022 [facility] Start: 04-29-2022 End: 04-29-2022 Patient encounter procedure Sarah Pop MD Work Phone: OB/Gynecology Comment on above: LLOYD II (cervical int raepithelial neoplasia II) (Primary Dx); Cervical high risk human papillomavirus (HPV) DNA test positive; Cervical cancer screening; Special screening examination for human papillomavirus (HPV); History of cervical dysplasia Start: 04-08-2022 End: 04-08-2022 Subsequent hospital visit by physician Angelita Ho MD Work Phone: Ambulatory Surgery Comment on above: Generalized abdomina l pain [R10.84] Start: 04-06-2022 ambulatory Angelita Ho MD Work Phone: Ambulatory Surgery Start: 04-02-2022 ambulatory Becky Lua n PA-C Work Phone: [facility] Start: 04-02-2022 Follow-up encounter Becky Hernan PA-C [facility] Comment on above: [facility] up from [facility] Start: 04-01-2022 End: 04-01-2022 Subsequent hospital visit by physician [facility] Work Phone: Radiology Comment on above: Acute constipation [ K59.00] Start: 04-01-2022 End: 04-01-2022 Patient encounter procedure Becky Becerra PA-C Work Phone[facility] Comment on above: Acute constipation ( Primary Dx); Generalized abdominal pain Start: 03-27-2022 End: 03-27-2022 Emergency department patient visit Dr. [facility] Start: 03-27-2022 End: 03-27-2022 Patient encounter procedure John Ramirez APRN.CNP Work Phone: [facility] Comment on above: Procedure not nilda d out (Primary Dx) Start: 02-23-2022 ambulatory Sarah Ozuna Work Phone: [facility] Start: 02-23-2022 Patient encounter procedure Sarah Pop MD Work Phone: OB/Gynecology Comment on above: Appointment problem calling Start: 02-05-2022 End: 02-05-2022 Emergency department patient visit Dr. [facility] Start: 01-12-2022 End: 01-13-2022 Emergency department patient visit Dr. Donna Perdomo Work Phone: [facility]-Emergency Department Start: 01-12-2022 End: 01-13-2022 Non-patient / Non-visit Dr. Donna Perdomo Work Phone: [facility] Start: 12-22-2021 End: 12-22-2021 Subsequent hospital visit by physician Faustina [facility] Work Phone: Radiology Comment on above: Rib pain [R07.81] Start: 12-22-2021 End: 12-22-2021 Patient encounter procedure Louise Soriano CUSTOMER SALES REPRESENTATIVE.PLATFORM MATERIAL HANDLING SUPERVISOR Work Phone: [facility] Comment on above: Rib pain (Primary Dx ); Injury of abdomen, initial encounter; Microscopic hematuria Start: 12-01-2021 End: 12-01-2021 Subsequent hospital visit by physician Faustina [facility] Work Phone: Radiology Comment on above: Acute pain of left l ower extremity [M79.605] Start: 12-01-2021 Telephone encounter Maya daniel APRN.PLATFORM MATERIAL HANDLING SUPERVISOR Work Phone: [facility] Comment on above: Results Orders Start: 12-01-2021 End: 12-01-2021 Patient encounter procedure Maya Puente APRN.PLATFORM MATERIAL HANDLING SUPERVISOR Work Phone: [facility] Comment on above: Acute pain of left l ower extremity (Primary Dx); Leg abrasion, left, initial encounter Start: 10-22-2021 ambulatory Sarah Ozuna Work Phone: OB/Gynecology Comment on above: CX post op., However . Start: 10-17-2021 End: 10-17-2021 Admission to same day surgery center SHEET METAL WORK FURNACE INSTALLERdL Velarde NP Work Phone: [facility]-Surgical Day Care Start: 10-16-2021 Telephone encounter Sarah montgomery MD Work Phone: OB/Gynecology Comment on above: Patient Update Start: 10-09-2021 End: 10-09-2021 Discharged Recurring SHEET METAL WORK FURNACE INSTALLER-C Dylan Velarde SHEET METAL WORK FURNACE INSTALLER [facility] Start: 10-09-2021 Registered Recurring SHEET METAL WORK FURNACE INSTALLER-C Dylan Velarde SHEET METAL WORK FURNACE INSTALLER [facility] Start: 10-01-2021 End: 10-01-2021 Patient encounter procedure Sarah Pop MD Work Phone: OB/Gynecology Comment on above: Pre-op exam (Primary Dx); LLOYD II (cervical intraepithelial neoplasia II) Start: 10-01-2021 End: 10-01-2021 Preprocedural examination done Sarah Pop MD Work Phone: OB/Gynecology Start: 09-16-2021 End: 09-16-2021 Patient encounter procedure SHEET METAL WORK FURNACE INSTALLERLd Velarde SHEET METAL WORK FURNACE INSTALLER Work Phone: [facility]-Laboratory Start: 09-02-2021 ambulatory Sarah Ozuna Work Phone: OB/Gynecology Comment on above: Fax number for eliezer ance Start: 09-01-2021 ambulatory Sarah Ozuna Work Phone: [facility] Start: 09-01-2021 End: 09-01-2021 Patient encounter procedure Sarah Pop MD Work Phone: OB/Gynecology Comment on above: Bleeding/still comin g to appointment however LLOYD II (cervical int raepithelial neoplasia II) (Primary Dx); Cervical high risk human papillomavirus (HPV) DNA test positive; Pelvic pain in female; DUB (dysfunctional uterine bleeding); IUD (intrauterine device) in place Start: 08-27-2021 Telephone encounter Sarah montgomery MD Work Phone: OB/Gynecology Comment on above: Results Start: 08-20-2021 End: 08-20-2021 Patient encounter procedure Sarah Pop MD Work Phone: OB/Gynecology Comment on above: ASCUS with positive high risk HPV cervical (Primary Dx) Start: 08-15-2021 Non-patient / Non-visit SHEET METAL WORK FURNACE INSTALLER-Robert Velarde NP Work Phone: [facility] Start: 08-15-2021 End: 08-15-2021 Emergency department patient visit SHEET METAL WORK FURNACE INSTALLER-C Dylan Velarde NP Work Phone: [facility]-Emergency Department Start: 08-14-2021 ambulatory Tevin england MD Work Phone: General Surgery Comment on above: Mediport 6+ months c ausing pain Start: 08-12-2021 ambulatory Louise Flanagan APRN.CNM Work Phone: OB/Gynecology Comment on above: August h Start: 08-06-2021 End: 08-06-[address] [facility] Start: 07-24-2021 End: 07-24-2021 Manual pelvic examination Louise Flanagan APRN.CNM Work Phone: OB/Gynecology Comment on above: Pelvic pain in femal e (Primary Dx); Encounter for IUD removal; Acute cystitis with hematuria; PID (acute pelvic inflammatory disease) Start: 07-24-2021 End: 07-24-2021 Telemedicine consultation with patient Louise Flanagan CNM Work Phone: [facility] Start: 06-18-2021 End: 06-18-[address] [facility] Start: 06-13-2021 End: 06-13-[address] [facility] Start: 05-23-2021 End: 05-23-[address] [facility] Start: 12-24-2020 End: 12-24-2020 Office outpatient visit 25 minutes Dylan Velarde CNP Work Phone: [facility] Start: 11-12-2020 End: 11-12-2020 Office outpatient visit 15 minutes Dylan Velarde CNP Work Phone: [facility] Start: 11-12-2020 Review Dylan Velarde CNP Work Phone: [facility] Start: 10-28-2020 End: 11-07-2020 Office outpatient visit 25 minutes Dylan Velarde CNP Work Phone: [facility] Start: 10-28-2020 Review Dylan Velarde CNP Work Phone: [facility] Start: 10-25-2020 End: 10-25-2020 Office outpatient visit 15 minutes Dylan Velarde CNP Work Phone: [facility] Start: 03-13-2020 End: 03-13-2020 Emergency department patient visit Jacobo Valenzuela Work Phone: [facility] Comment on above: Feared complaint wit hout diagnosis (Primary Dx) Start: 10-07-2019 End: 10-08-2019 Evaluation and management of inpatient Khurram Kunz Work Phone: [facility] 3W TELEMETRY Comment on above: Seizures (HCC) (Prim donald Dx) Start: 07-19-2019 End: 07-19-2019 Office outpatient visit 10 minutes Dylan Ambriz Internal Medicine Start: 05-17-2019 End: 05-17-2019 Office outpatient visit 15 minutes Dylan Velarde [facility] Start: 03-29-2019 End: 03-29-2019 Office outpatient visit 15 minutes Dylan Ambriz Internal Medicine Start: 03-08-2019 End: 03-08-2019 Office outpatient visit 15 minutes Dylan Ambriz Internal Medicine Start: 12-06-2018 End: 12-06-2018 Office outpatient visit 15 minutes Dylan Ambriz Internal Medicine Start: 11-14-2018 End: 11-14-2018 Phone Encounter Dylan Ambriz [facility] Medicine Start: 10-25-2018 End: 10-25-2018 Annotation/Addendum Dylan Velarde [facility] Start: 10-25-2018 End: 10-25-2018 Annotation/Addendum Dylan Ambriz [facility] Start: 10-24-2018 End: 10-24-2018 Annotation/Addendum Dylan Ambriz [facility] Start: 10-24-2018 End: 10-24-2018 Office outpatient visit 15 minutes Dylan Ambriz Internal Medicine Start: 07-12-2018 Patient encounter procedure Dylan Ambriz Internal Med Start: 05-05-2018 End: 05-05-2018 Lab Order Dylan Ambriz [facility] Start: 03-08-2018 End: 03-08-2018 Office outpatient visit 15 minutes Dylan Ambriz Internal Medicine Start: 02-18-2018 End: 02-18-2018 Annotation/Addendum Dylan Ambriz [facility] Start: 02-11-2018 End: 02-11-2018 Office outpatient visit 25 minutes Dylan Ambriz Internal Medicine Start: 02-07-2018 End: 02-07-2018 Office outpatient visit 15 minutes Dylan Ambriz Internal Medicine Start: 01-26-2018 End: 01-26-2018 Annotation/Addendum Dylan Ambriz [facility] Medicine Start: 01-24-2018 End: 01-24-2018 Office outpatient visit 25 minutes Dylan Ambriz Internal Medicine Start: 12-24-2017 End: 12-24-2017 Office outpatient visit 25 minutes Dylan Ambriz Internal Medicine Start: 12-23-2017 End: 12-23-2017 Office outpatient visit 25 minutes Dylan Ambriz Internal Medicine Start: 11-30-2017 End: 11-30-2017 Office outpatient visit 15 minutes Dylan Ambriz Internal Medicine Start: 08-24-2017 End: 08-24-2017 Emergency department patient visit BHUPENDRA CANDELARIA [facility] Start: 08-03-2017 End: 08-03-2017 Office outpatient visit 15 minutes Dylan Ambriz Internal Medicine Start: 06-04-2017 End: 06-04-2017 Phone Encounter Dylan Ambriz [facility] Start: 05-31-2017 End: 05-31-2017 Office outpatient visit 15 minutes Dylan Ambriz Internal Medicine Start: 03-02-2017 End: 03-02-2017 Office outpatient visit 15 minutes Dylan [facility] Start: 02-10-2017 End: 02-10-2017 Office outpatient visit 25 minutes [facility] Start: 12-17-2016 End: 12-17-2016 Emergency department patient visit [facility] Facility:[facility] Start: 05-19-2016 End: 05-19-2016 Office outpatient visit 15 minutes [facility] Start: 03-06-2016 End: 03-09-2016 Office outpatient visit 5 minutes Dylan [facility] Start: 03-04-2016 End: 03-04-2016 Office outpatient visit 5 minutes Dylan [facility] Start: 01-31-2016 End: 01-31-2016 Office outpatient visit 15 minutes [facility] Start: 10-10-2015 End: 10-10-2015 Office outpatient visit 10 minutes [facility] Start: 08-30-2015 End: 08-30-2015 Office outpatient visit 15 minutes [facility] Start: 08-09-2015 End: 08-09-2015 Office outpatient visit 15 minutes [facility] Start: 06-28-2015 End: 06-28-2015 Office outpatient visit 25 minutes [facility] Start: 05-31-2015 End: 05-31-2015 Office outpatient visit 40 minutes [facility] Start: 05-29-2015 End: 05-29-2015 Phone Encounter [facility] Start: 03-01-2015 End: 03-01-2015 Office outpatient visit 15 minutes [facility] Start: 02-26-2015 End: 02-26-2015 Office outpatient new 45 minutes [facility] Procedures Date Procedure Procedure Detail Performing Clinician Start: 10-13-2024 X-ray of chest, PA and lateral views Dr. Donna Perdomo MD Work Phone: Start: 10-06-2024 Plain chest X-ray Dr. Donna Perdomo MD Work Phone: Start: 10-06-2024 Carbon dioxide measurement, partial pressure Dr. Donna Perdomo MD Work Phone: Start: 10-06-2024 Gases blood o2 saturation only direct traci Dr. Donna Perdomo MD Work Phone: Start: 10-06-2024 Measurement of partial pressure of oxygen in blood Dr. Donna Perdomo MD Work Phone: Start: 10-06-[address] Donna Perdomo MD Work Phone: Start: 10-06-2024 Methadone measurement, urine Dr. Donna Perdomo MD Work Phone: Start: 10-06-2024 Urnls dip stick/tablet reagent auto microscopy Dr. Donna Perdomo MD Work Phone: Start: 10-06-2024 CT of head without contrast Dr. Donna Perdomo MD Work Phone: Start: 10-06-[address] Donna Perdomo MD Work Phone: Start: 10-03-2024 Radionuclide gastric emptying study Dr. Donna Perdomo MD Work Phone: Start: 08-23-2024 Plain X-ray abdomen Dr. Donna Perdomo MD Work Phone: Start: 08-21-2024 Plain X-ray abdomen Dr. Donna Perdomo MD Work Phone: Start: 08-18-[address] Donna Perdomo MD Work Phone: Start: 08-16-[address] Donna Perdomo MD Work Phone: Start: 08-16-2024 Endomysial antibody IgA level Dr. Donna Perdomo MD Work Phone: Start: 08-16-[address] Donna Perdomo MD Work Phone: Start: 08-16-[address] Donna Perdomo MD Work Phone: Start: 10-11-2023 STREP A MOLECULAR (POC) [facility] Provider Start: 02-12-2023 Albumin serum plasma/whole blood Renee Donald CUSTOMER SALES REPRESENTATIVE-PLATFORM MATERIAL HANDLING SUPERVISOR Work Phone: Start: 02-12-2023 CBC AND ELECTRONIC DIFF Renee velez CUSTOMER SALES REPRESENTATIVE-PLATFORM MATERIAL HANDLING SUPERVISOR Work Phone: Start: 02-12-2023 Complete blood count with white cell differential, automated Renee Donald CUSTOMER SALES REPRESENTATIVE-PLATFORM MATERIAL HANDLING SUPERVISOR Work Phone: Start: 11-02-2022 Assay of magnesium Brianna Chilel MD Work Phone: Start: 11-02-2022 Calculation of weaning parameters Adolfo Flores MD Work Phone: Start: 11-01-2022 Assay of magnesium Brianna Chilel MD Work Phone: Start: 11-01-2022 Calculation of weaning parameters Brianna Chilel MD Work Phone: Start: 10-31-2022 Calculation of weaning parameters Brianna Chilel MD Work Phone: Start: 10-31-2022 Assay of magnesium Brianna Chilel MD Work Phone: Start: 10-30-2022 EXTRA MICRO Brianna Chilel MD Work Phone: Start: 10-30-2022 End: 10-30-2022 Drug tst prsmv instrmnt chem analyzers pr date Brianna Chilel MD Work Phone: Start: 10-30-2022 URINALYSIS REFLEX TO CULTURE Brianna Chilel MD Work Phone: Start: 10-30-2022 Urnls dip stick/tablet reagent auto microscopy Brianna Chilel MD Work Phone: Start: 10-30-2022 Creatine kinase total Adolfo Flores MD Work Phone: Start: 10-30-2022 Radiologic exam chest single view Brianna Chilel MD Work Phone: Start: 10-30-2022 Calculation of weaning parameters Brianna Chilel MD Work Phone: Start: 10-30-2022 Assay of magnesium Brianna Chilel MD Work Phone: Start: 10-30-2022 CBC AND ELECTRONIC DIFF Brianna Ozuna Work Phone: Start: 10-30-2022 Complete blood count with white cell differential, automated Brianna Chilel MD Work Phone: Start: 10-29-2022 CT of head without contrast Start: 10-29-2022 Plain chest X-ray Start: 09-07-2022 End: 09-07-2022 Emergency Department Summary Procedure Note: See Note; NOTES: [facility] Medical Records Department [address] [place] [address] Emergency Department Summary 09/07/22 MR#: [id number] Acct: [id number] Name: DOUG FLANAGAN Rep #: [id number] : 1990 32 From: Brain Del Castillo MD PCP: Dr. Donna Perdomo MD Status:REG ER Location: ED HPI History of Present Illness Chief Complaint: Nausea/Vomiting Detail of Chief Complaint: Chest discomfort, shortness of breath, motor activity without loss of consc Informant: patient and family ([id number]) Onset/Context/Timing Onset: Today Context: Sudden Onset Timing: Intermittent Quality: Document HPI narrative Location: Multiple locations Current Severity: Mild Maximum Severity: Moderate Worsened by: Chest pain worse with movement and breathing Relieved by: Nothing Associated Symptoms Associated Symptoms: HPI narrative Narrative Narrative: Patient is a 32-year-old woman with history of myasthenia gravis, generalized tonic-clonic seizures as well as petit mall seizures who presents by ambulance because son noted jerking motion of her arm. Patient reported no loss of conscious which is not normal for her with seizure. [id number] states she was not postictal. She also complains of inability to obtain a good breath and pleuritic chest pain with muscular pain on left side of her chest. She does have history of DVT right upper extremity due to port. She is presently on anticoagulant because of the clot. She denies headache. She does report vertical and horizontal diplopia. This may be due to her myasthenia gravis. She was recently admitted for myasthenia gravis crisis and required plasmapheresis. She received recent therapy. This was performed at [facility]. Patient's next dose of medication is in 6 weeks. She also complains of leg pain. She denies history of DVT of the lower extremity. Denies swelling, discoloration. She denies nausea, vomiting diarrhea. She denies fever. She does complain of bifrontal headache. She denies ringing or ears decreased hearing. She denies loss of vision. She denies trouble with speech or swallowing. Prior similar symptoms: No Recent Illness/Hospitalization: Yes PFSH REPLACED BY [facility] Medical History Anemia Chest pain Difficulty chewing Difficulty swallowing History of stress test Hx of peripheral vascular disease Injury of head and neck Leg cramps Migraine headache Myasthenia gravis Non-smoker Normal echocardiogram ( 05/18/16) Seizures Shortness of breath on exertion Home Medications zonisamide 100 mg capsule 200 mg PO 0800 seizures 12/23/17 [History Last Taken 10/17/21] lorazepam 1 mg tablet 1 mg PO DAILY PRN PRN Seizure 01/07/18 [History Last Taken 05/03/18] zonisamide 100 mg capsule 300 mg PO QHS seizures 03/26/19 [History Last Taken 11/01/20 20:00] lamotrigine 200 mg tablet,extended release 24 hr 100 mg PO 0800 seizures 10/14/20 [History Last Taken 10/17/21] lamotrigine 250 mg tablet,extended release 24 hr 200 mg PO QHS seizures 10/14/20 [History Last Taken 11/01/20 20:00] levonorgestrel 21 mcg/24 hours (8 yrs) 52 mg intrauterine device (Mirena) 20 mcg intrauterine UD control 10/14/20 [History Last Taken Unknown] oxcarbazepine 150 mg tablet 150 mg PO QHS SEIZURES 10/14/20 [History Last Taken 11/01/20 20:00] apixaban 5 mg tablet (Eliquis) 5 mg PO BID blood clot 11/02/20 [History Last Taken 10/13/21] escitalopram oxalate 10 mg tablet (Lexapro) 10 mg PO QHS 10/09/21 [History Last Taken Unknown] diazepam 10 mg/spray (0.1 mL) nasal spray (Valtoco) 10 mg intranasal PRN PRN Seizures 08/08/22 [History Last Taken Unknown] Allergy/AdvReac Type Severity Reaction Status Date / Time levetiracetam [From Keppra] Allergy Other Verified 09/07/22 14:38 Penicillins Allergy Rash Verified 09/07/22 14:38 phenytoin [From Dilantin] Allergy PT UNSURE Verified 09/07/22 14:38 OF REACTION prochlorperazine Allergy Other Verified 09/07/22 14:38 [From Compazine] shellfish derived Allergy Other Verified 09/07/22 14:38 soy AdvReac NEEDS Verified 09/07/22 14:38 FOLLOW-UP Surgical History Hx of appendectomy Hx of thymectomy Hx of total hip arthroplasty Social History household members: spouse Smoking Status: Never smoker second hand exposure: Yes alcohol intake: never substance use type: does not use ROS ROS ED Constitutional Constitutional ED: Denies chills, fever(s), subjective, sweats or weight loss Eyes Eyes: Denies blurry vision, change in vision or diplopia ENT ENT ED: Denies ear pain, rhinorrhea or sore throat Cardiovascular Cardiovascular: Reports chest pain; Denies orthopnea, palpitations, paroxysmal nocturnal dyspnea or racing heartbeat Respiratory/Chest Respiratory/Chest: Reports dyspnea; Denies cough, dyspnea on exertion, orthopnea or paroxysmal nocturnal dyspnea Gastrointestinal Gastrointestinal: Reports nausea; Denies abdominal pain, constipation, diarrhea or vomiting Genitourinary Genitourinary ED: Denies dysuria, hematuria or urinary frequency Musculoskeletal Musculoskeletal: Denies arthralgias, back pain, myalgias or neck pain Integumentary Denies Abrasions or rash Neurologic Neurologic: Reports headache(s); Denies paresthesias or weakness Psychiatric Psychiatric: Reports anxiety Hematologic/Lymphatic Hematologic/Lymphatic: Reports systems reviewed and no addt'l complaints, except as documented EXAM Physical Exam Const Vital Signs: 09/07/22 14:04 09/07/22 14:40 09/07/22 16:42 Temperature 97.5 F L 96.6 F L Temperature Source Temporal Temporal Pulse Rate 110 H 78 Respiratory Rate 16 18 Respiratory Effort Normal Non-Labored Respiratory Depth Normal Respiratory Pattern Normal Blood Pressure 116/83 H 113/66 Blood Pressure Mean 94 81 Pulse Ox 100 98 Oxygen Delivery Method Room Air Room Air Room Air 09/07/22 18:06 Temperature Temperature Source Pulse Rate Respiratory Rate 18 Respiratory Effort Respiratory Depth Respiratory Pattern Blood Pressure 115/79 Blood Pressure Mean 91 Pulse Ox Oxygen Delivery Method Room Air Positive well nourished and well developed General Appearance ED: well developed and NAD; Negative for cyanotic, diaphoretic or pallor HEENT Reports moist mucous membranes HEENT Narrative: Head is atraumatic normocephalic. Ears normal. TMs normal. Nares patent. No abnormality noted. Posterior pharynx is normal. Uvula is midline. There is no deep tongue with protrusion. Eyes PERRL and EOMs intact bilaterally Eyes Narrative: There is no nystagmus. There is no APD. General Eye ED: Negative for pale conjunctiva or scleral icterus Neck no lymphadenopathy, supple and no JVD Chest Wall inspection of chest normal and palpation of chest normal Chest Narrative: Pain to palpation anterior axillary line fifth sixth left rib region. Resp normal respiratory effort and clear to auscultation bilaterally Cardio regular rate, regular rhythm, S1 normal heart sound, S2 normal heart sound and no murmurs GI normal to inspection, nondistended, normoactive bowel sounds, non-tender and non-distended Auscultation: normoactive bowel sounds Palpation: soft Back/Spine no CVA tenderness Thoracic Spine / Upper Back: Negative for thoracic spinal tenderness Lumbar Spine / Lower Back: Negative for lumbar spinal tenderness Extremity normal to inspection Extremity Narrative: There is no asymmetry, swelling, discoloration, leg vein distention, palpable cords or tenderness along the distribution of the deep venous system. Furthermore, there is no swelling, discoloration, asymmetry, venous distention upper extremities. Neuro oriented x3, CN's II-XII intact bilaterally and no sensory deficits noted Neuro Narrative: There is no clonus or Babinski sign. There is no dysmetria. Sensorium / Orientation: alert Motor Exam: strength 5/5 throughout Skin no rashes or lesions noted, no wounds and skin turgor normal General Skin Exam: elasticity normal; Negative for jaundice or pallor MDM MDM MDM Narrative Medical decision making narrative: History of DVT upper extremity pleuritic pain and the fact that she is not PERC negative will need to obtain a D-dimer to rule out/assess for PE. Will obtain blood work to assess white count and H H electrolyte and was obtained to determine if this is explains any of her symptoms. She came out and said that she does have problems with anxiety. This is not her typical seizure. She is scheduled to see Dr. 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 There is no Tensilon available to determine if patient needs more medication. 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 As stated before this may be due to her myasthenia gravis. This will need to be followed up by her neurologist. Lab Data Attestation: I reviewed the patient's lab results. Lab results narrative: White is slightly elevated with normal differential. D-dimer is less than 0.27. Comprehensive metabolic panel is both. Labs: Laboratory Results - last 24 hr 09/07/22 09/07/22 09/07/22 16:00 16:00 16:00 WBC 11.1 H RBC 4.48 Hgb 12.4 Hct 38.5 MCV 85.9 MCH 27.7 MCHC 32.2 RDW Std Deviation 41.1 RDW Coeff of Mariella 13.2 Plt Count 306 MPV 9.3 Immature Gran % (Auto) 0.400 Neut % (Auto) 77.3 H Lymph % (Auto) 15.0 L Whiteside % (Auto) 5.8 Eos % (Auto) 1.1 Baso % (Auto) 0.4 Absolute Neuts (auto) 8.6 H Absolute Lymphs (auto) 1.67 Nucleated RBC % 0 D-Dimer Quant (PE/DVT) < 0.27 L Sodium 140 Potassium 3.7 Chloride 112 H Carbon Dioxide 22.0 Anion Gap 6 BUN 10 Creatinine 0.74 Estim Creat Clear Calc 88.61 Est GFR (MDRD) Af Amer 115 Est GFR (MDRD) Non-Af 95 BUN/Creatinine Ratio 13.5 Glucose 86 Calcium 9.1 Total Bilirubin 0.40 AST 13 L ALT 20 Alkaline Phosphatase 102 Total Protein 7.3 Albumin 3.9 Globulin 3.4 Albumin/Globulin Ratio 1.1 Radiography Chest X-Ray - ED: 2 View and Read by ED Physician (2 view chest x-ray was normal cardiac silhouette and size. Lung parenchyma is normal. Perihilar regions normal. Osseous structures are normal.) Diagnostic Testing: Clinical Impression(s) from Imaging Studies Chest X-Ray 09/07/22 16:10 IMPRESSION: No acute findings in the chest. Electronically Signed: Siva To MD at 16:38 EDT , Treatment and Re-Evaluation :: Patient's heart rate improved without treatment. Discharge Plan Triage Chief Complaint: Nausea/Vomiting ED Provider: Del CastilloBrain Dx/Rx/DC Orders Clinical Impression: Abnormal motor activity, Pleuritic chest pain, Musculoskeletal chest pain, Hx of myasthenia gravis, History of seizure disorder, Diplopia, Anticoagulant long-term use Instructions: ED Pleurisy Prescriptions: No Action zonisamide 100 capsule 200 mg PO 0800 Label Comments: seizures lorazepam 1 MG tablet 1 mg PO DAILY PRN PRN (Reason: Seizure) Label Comments: seizures zonisamide 100 MG capsule 300 mg PO QHS Label Comments: seizures oxcarbazepine 150 mg tablet 150 mg PO QHS Mirena 20 mcg/24 hours (6 yrs) 52 mg Intrauterine Device 20 mcg INTRAUTERINE UD Label Comments: already placed lamotrigine 200 mg tablet extended release 24hr 100 mg PO 0800 Label Comments: take 1 tablet by mouth once daily lamotrigine 250 mg tablet extended release 24hr 200 mg PO QHS Label Comments: take 1 tablet by mouth once daily at bedtime Eliquis 5 mg tablet 5 mg PO BID Label Comments: TAKE 2 TABLETS BY MOUTH TWICE DAILY FOR 7 DAYS, THEN TAKE 1 TABLET TWICE DAILY escitalopram oxalate [Lexapro] 10 mg Tablet 10 mg PO QHS Valtoco 10 mg/spray (0.1 mL) spray,non-aerosol 10 mg INTRANASAL PRN PRN (Reason: Seizures) Label Comments: USE DIRECTED NASALLY 1 TO 2 TIMES A WEEK Primary Care Provider: Donna Perdomo Referrals: Donna Perdomo MD [Primary Care Provider] - 3-5 Days Gerald Gilmore MD [Non-Staff] - Keep Hellen appointment Disposition Disposition: Home, Self Care What to do if you have Problems For any increased pain, shortness of breath, bleeding, nausea or vomiting, chest pain, or any unexpected problems, contact your Primary Care Provider. Call [facility] ([phone]) or report to the closest Emergency Room. Call 911 if necessary. 09/07/22 1835 <Electronically signed by Brain Del Castillo MD> Cosigner Signature (if applicable): CC: Dr. Donna Perdomo MD Signed Dylan Velarde Work Phone: Start: 09-07-2022 End: 09-07-2022 Chest PA and Lateral Procedure Note: See Note; NOTES: [facility] Imaging Services [address] [place] [address] Chest PA and Lateral MR#: [id number] Acct: [id number] Name: DOUG FLANAGAN Rep #: [id number] : 1990 F 32 From: Siva Ozuna PCP: Dr. Donna Perdomo MD Status: [facility] ER Study: Chest PA and Lateral Date of Exam: 09/07/22 Exam# [id number] Ordering Dr: Brain Del Castillo MD EXAM: XR CHEST, 2 VIEWS CLINICAL INDICATION: None provided. Left-sided chest pain with pleuritic component TECHNIQUE: Frontal and lateral views of the chest. COMPARISON: 07/17/22 FINDINGS: LUNGS AND PLEURAL SPACES: Unremarkable. No consolidation or edema. No pneumothorax. No effusion. HEART: Unremarkable. Cardiac silhouette not enlarged. MEDIASTINUM: Central airways and mediastinal contour are unremarkable. BONES/JOINTS: Unremarkable. SOFT TISSUES: Unremarkable. TUBES, LINES AND DEVICES: There is a right Port-A-Cath and/or mediport in place. The tip is in the superior vena caval - atrial junction. RAD/Chest PA and Lateral IMPRESSION: No acute findings in the chest. Electronically Signed: Siva To MD at 16:38 EDT Reading Location ID and State: [facility] / [place] , Service support , CC: Dr. Donna Perdomo MD; Dr. Brain Del Castillo MD Hosiery Mater: Signed Dylan Velarde Work Phone: Start: 09-07-2022 Plain chest X-ray Start: 08-08-2022 End: 08-08-2022 Emergency Department Summary Procedure Note: See Note; NOTES: [facility] Medical Records Department [address] [place] [id number] Emergency Department Summary 08/08/22 MR#: [id number] Acct: [id number] Name: DOUG FLANAGAN Rep #: [id number] : 1990 31 From: Sai Wilsno PCP: Dr. Donna Perdomo MD Status:[facility] ER Location: ED HPI History of Present Illness Chief Complaint: Seizure Informant: patient and parent Narrative Narrative: Presented by EMS from home for breakthrough seizure today. History of petit mal and grand mal seizures along with myasthenia gravis. Patient compliant with her medications. She is on 3 medications. Increasing stress from hospitalization for the past 10 days at [facility]. She finished plasmapheresis yesterday prior to discharge with a 10-day course due to myasthenia gravis crisis. She is followed by neurology Dr. Gilmore. Reports with daughter new myasthenia gravis infusion every 8 weeks, however due to billing issues was unable to get her last infusion leading to her crisis. Strength is increased however stress from hospitalization. No cough. No recent vomiting or diarrhea. No urinary symptoms. Recently finished her menstrual period. Status post diazepam per mother she was postictal currently back to baseline. No incontinence of urine. Prior similar symptoms: [facility] Medical History Anemia Chest pain Difficulty chewing Difficulty swallowing History of stress test Hx of peripheral vascular disease Injury of head and neck Leg cramps Migraine headache Myasthenia gravis Non-smoker Normal echocardiogram ( 05/18/16) Seizures Shortness of breath on exertion Home Medications zonisamide 100 mg capsule 200 mg PO 0800 seizures 12/23/17 [History Last Taken 10/17/21] lorazepam 1 mg tablet 1 mg PO DAILY PRN PRN Seizure 01/07/18 [History Last Taken 05/03/18] zonisamide 100 mg capsule 300 mg PO QHS seizures 03/26/19 [History Last Taken 11/01/20 20:00] lamotrigine 200 mg tablet,extended release 24 hr 100 mg PO 0800 seizures 10/14/20 [History Last Taken 10/17/21] lamotrigine 250 mg tablet,extended release 24 hr 200 mg PO QHS seizures 10/14/20 [History Last Taken 11/01/20 20:00] levonorgestrel 21 mcg/24 hours (8 yrs) 52 mg intrauterine device (Mirena) 20 mcg intrauterine UD control 10/14/20 [History Last Taken Unknown] oxcarbazepine 150 mg tablet 150 mg PO QHS SEIZURES 10/14/20 [History Last Taken 11/01/20 20:00] apixaban 5 mg tablet (Eliquis) 5 mg PO BID blood clot 11/02/20 [History Last Taken 10/13/21] escitalopram oxalate 10 mg tablet (Lexapro) 10 mg PO QHS 10/09/21 [History Last Taken Unknown] diazepam 10 mg/spray (0.1 mL) nasal spray (Valtoco) 10 mg intranasal PRN PRN Seizures 08/08/22 [History Last Taken Unknown] Allergy/AdvReac Type Severity Reaction Status Date / Time levetiracetam [From Keppra] Allergy Other Verified 07/17/22 14:25 Penicillins Allergy Rash Verified 07/17/22 14:25 phenytoin [From Dilantin] Allergy PT UNSURE Verified 07/17/22 14:25 OF REACTION prochlorperazine Allergy Other Verified 07/17/22 14:25 [From Compazine] shellfish derived Allergy Other Verified 07/17/22 14:25 soy AdvReac NEEDS Verified 07/17/22 14:25 FOLLOW-UP Surgical History Hx of appendectomy Hx of thymectomy Hx of total hip arthroplasty Social History household members: spouse Smoking Status: Never smoker second hand exposure: Yes alcohol intake: never substance use type: does not use ROS ROS ED Constitutional Constitutional ED: Denies chills, fever(s) or sweats Eyes Eyes: Denies change in vision ENT ENT ED: Denies dysphagia or sore throat Cardiovascular Cardiovascular: Denies chest pain, leg edema, palpitations or racing heartbeat Respiratory/Chest Respiratory/Chest: Denies cough, dyspnea or dyspnea on exertion Gastrointestinal Gastrointestinal: Denies abdominal pain, diarrhea, nausea or vomiting Genitourinary Genitourinary ED: Denies dysuria, hematuria or urinary frequency Musculoskeletal Musculoskeletal: Denies back pain, extremity pain or neck pain Integumentary Denies rash or wounds Neurologic Neurologic: Reports other Details: Seizure ; Denies headache(s), paresthesias or weakness EXAM Physical Exam Const Vital Signs: 08/08/22 11:01 08/08/22 13:00 Temperature 98.4 F Temperature Source Temporal Pulse Rate 115 H Respiratory Rate 16 Blood Pressure 126/79 H 107/73 Blood Pressure Mean 94 84 Pulse Ox 98 Oxygen Delivery Method Room Air Positive well nourished and well developed General Appearance ED: well developed and NAD HEENT Reports moist mucous membranes HEENT Narrative: Right lateral tongue abrasion no lacerations or active bleeding. normocephalic and atraumatic Eyes PERRL, EOMs intact bilaterally and conjunctivae normal General Eye ED: Yes normal appearance of both eyes Neck no lymphadenopathy and supple General: Negative for tenderness Chest Wall Chest Narrative: Right upper chest Mediport clean, dry intact. Left upper chest dressing removed, small healing ulcer from recent tunnel cath no erythema or drainage. Sutures noted above the left clavicle clean, dry, intact. Chest: Negative for tenderness Resp normal respiratory effort and normal air movement Effort and Inspection: symmetric chest movement; Negative for respiratory distress Cardio regular rate, regular rhythm and no murmurs Peripheral Pulses: pulses 2+ throughout GI normal to inspection, nondistended, normoactive bowel sounds and non-tender Palpation: Negative for guarding or rebound tenderness present Back/Spine no CVA tenderness and no thoracic nor lumbar tenderness Extremity normal to inspection General Extremety ED: Negative for edema or tenderness General Extremity: Negative for edema Neuro oriented x3, CN's II-XII intact bilaterally and no sensory deficits noted Sensorium / Orientation: awake and alert Skin Skin Narrative: See above MDM MDM MDM Narrative Medical decision making narrative: Interventions / MDM: Differential diagnosis: Breakthrough seizure with history of epilepsy Diagnosis considered but do not suspect: N/A My EKG interpretation: N/A Imaging independently reviewed and interpreted by myself: N/A External documents reviewed: N/A Test considered but not ordered:N/A ED course: History of epilepsy breakthrough seizure with evidence of tongue abrasion. She is back to baseline. Labs stable glucose normal sodium normal normal. Urine for infection. Re-evaluation: stable, no recurrent symptoms. She is reassured. She will continue her seizure medications. She will contact her neurologist on Wednesday she has a follow-up on the from her hospitalization. Return precautions. All questions were answered. Disposition discussed with patient/family/significant other: Patient and mother Case discussed with consulting clinician: N/A Lab Data Labs: Laboratory Results - last 24 hr 08/08/22 08/08/22 08/08/22 12:52 13:04 13:04 WBC 11.9 H RBC 4.31 Hgb 12.1 Hct 36.9 L MCV 85.6 MCH 28.1 MCHC 32.8 RDW Std Deviation 43.0 RDW Coeff of Mariella 13.7 Plt Count 255 MPV 9.1 Immature Gran % (Auto) 0.600 Neut % (Auto) 85.0 H Lymph % (Auto) 8.1 L Whiteside % (Auto) 5.0 Eos % (Auto) 0.9 Baso % (Auto) 0.4 Absolute Neuts (auto) 10.1 H Absolute Lymphs (auto) 0.97 Nucleated RBC % 0 Sodium 139 Potassium 3.7 Chloride 114 H Carbon Dioxide 22.0 Anion Gap 3 L BUN 12 Creatinine 0.66 Estim Creat Clear Calc 100.29 Est GFR (MDRD) Af Amer 133 Est GFR (MDRD) Non-Af 110 BUN/Creatinine Ratio 18.3 Glucose 113 H Calcium 8.9 Urine Color Yellow Urine Clarity Clear Urine pH 8.0 Ur Specific [place] 1.015 Urine Protein Negative Urine Glucose (UA) Normal Urine Ketones Negative Urine Occult Blood Negative Urine Nitrite Negative Urine Bilirubin Negative Urine Urobilinogen Normal Ur Leukocyte Esterase Negative Urine RBC 0 SEEN Urine WBC 0 SEEN Ur Squamous Epith Cells 0-5 SEEN Urine Bacteria 1+ Urine Mucus 0 SEEN Urine Test Negative Discharge Plan Triage Chief Complaint: Seizure ED Provider: Sai Feldman Dx/Rx/DC Orders Clinical Impression: Breakthrough seizure, Epilepsy Instructions: ED Seizure, Recurrent (Adult) Prescriptions: No Action zonisamide 100 capsule 200 mg PO 0800 Label Comments: seizures lorazepam 1 MG tablet 1 mg PO DAILY PRN PRN (Reason: Seizure) Label Comments: seizures zonisamide 100 MG capsule 300 mg PO QHS Label Comments: seizures oxcarbazepine 150 mg tablet 150 mg PO QHS Mirena 20 mcg/24 hours (6 yrs) 52 mg Intrauterine Device 20 mcg INTRAUTERINE UD Label Comments: already placed lamotrigine 200 mg tablet extended release 24hr 100 mg PO 0800 Label Comments: take 1 tablet by mouth once daily lamotrigine 250 mg tablet extended release 24hr 200 mg PO QHS Label Comments: take 1 tablet by mouth once daily at bedtime Eliquis 5 mg tablet 5 mg PO BID Label Comments: TAKE 2 TABLETS BY MOUTH TWICE DAILY FOR 7 DAYS, THEN TAKE 1 TABLET TWICE DAILY escitalopram oxalate [Lexapro] 10 mg Tablet 10 mg PO QHS Valtoco 10 mg/spray (0.1 mL) spray,non-aerosol 10 mg INTRANASAL PRN PRN (Reason: Seizures) Label Comments: USE DIRECTED NASALLY 1 TO 2 TIMES A WEEK Primary Care Provider: Donna Perdomo Referrals: Donna Perdomo MD [Primary Care Provider] - 1 Week Gerald Gilmore MD [Non-Staff] - Keep Hellen appointment Activity Restrictions/Additional Instructions: Labs stable urine negative for infection. Continue your seizure medications. Call Dr. Gilmore's office on Wednesday and keep your scheduled follow-up appointment. Return if worsening symptoms. Disposition Disposition: Home, Self Care Discharge Date/Time: 08/08/22 14:40 What to do if you have Problems For any increased pain, shortness of breath, bleeding, nausea or vomiting, chest pain, or any unexpected problems, contact your Primary Care Provider. Call [facility] ([phone]) or report to the closest Emergency Room. Call 911 if necessary. 08/08/22 1614 <Electronically signed by Sai Wilson> Cosigner Signature (if applicable): CC: Dr. Donna Perdomo MD; Dr. Gerald Gilmore MD Signed Dylan Velarde Work Phone: Start: 08-07-2022 RF Guidance for removal of tunneled CV catheter Gabrielai Sakshi SALGADO Work Phone: Start: 08-07-2022 Comprehensive metabolic panel [employer] Work Phone: Start: 08-06-2022 [facility] [employer] Work Phone: Start: 08-05-2022 [facility] [employer] Work Phone: Start: 08-04-2022 [facility] [employer] Work Phone: Start: 08-04-2022 Drug screen quantitative lamotrigine Juliana Tavares MD Work Phone: Start: 08-03-2022 Comprehensive metabolic panel [employer] Work Phone: Start: 08-02-2022 Drug screen quantitative oxcarbazepine Juliana Tavares MD Work Phone: Start: 04-02-2023 Glucose quantitative blood xcpt reagent strip Wadr Zhao DO Work Phone: Start: 08-02-2022 Comprehensive metabolic panel Antwon Nascimento DO Work Phone: Start: 08-01-2022 End: 08-01-2022 Mri brain brain stem w/o w/contrast material Josemanuel Le MD Work Phone: Start: 08-01-2022 Comprehensive metabolic panel Antwon Nascimento DO Work Phone: Start: 07-31-2022 NEGATIVE INSPIRATORY FORCE Juliana Tavares MD Work Phone: Start: 07-31-2022 Comprehensive metabolic panel Antwon Nascimento DO Work Phone: Start: 07-30-2022 Hepatitis b surf antibody hbsab Preti Sakshi SALGADO Work Phone: Start: 07-30-2022 Iaad ia hepatitis b surface antigen Preti Sakshi SALGADO Work Phone: Start: 07-30-2022 Radiologic exam chest 2 views Ewdige Bob PA-C Work Phone: Start: 07-30-2022 Ecg routine ecg w/least 12 lds trcg only w/o i&r Edwige Bob PA-C Work Phone: Start: 07-30-2022 Basic metabolic panel calcium total Edwige Croaurelia PA-C Work Phone: Start: 07-30-2022 IR CVC TUNNELED DIALYSIS [employer]HE[employer]ACEMENT Pretvishal Cantor MD Work Phone: Start: 07-30-2022 Blood count complete automated Virgil Valverde MD Work Phone: Start: 07-17-2022 End: 07-17-2022 Chest PA and Lateral Procedure Note: See Note; NOTES: [facility] Imaging Services [address] [place] [address] Chest PA and Lateral MR#: [id number] Acct: [id number] Name: DOUG FLANAGAN Rep #: [id number] : 1990 F 31 From: Siva Ozuna PCP: Dr. Donna Perdomo MD Status: REG ER Study: Chest PA and Lateral Date of Exam: 07/17/22 Exam# [id number] Ordering Dr: Lesly Posada MD EXAM: XR CHEST, 2 VIEWS CLINICAL INDICATION: pain TECHNIQUE: Frontal and lateral views of the chest. This report was created using [employer] report generation technology. COMPARISON: 05.27.22 FINDINGS: LUNGS AND PLEURAL SPACES: Unremarkable. No consolidation or edema. No pneumothorax. No effusion. HEART: Unremarkable. Cardiac silhouette not enlarged. MEDIASTINUM: Central airways and mediastinal contour are unremarkable. BONES/JOINTS: Unremarkable. SOFT TISSUES: Unremarkable. TUBES, LINES AND DEVICES: There is a right Port-A-Cath and/or mediport in place. The tip is in the superior vena caval - atrial junction. RAD/Chest PA and Lateral IMPRESSION: No acute findings in the chest. Electronically Signed: Siva To MD at 17:38 EDT Reading Location ID and State: [facility] / [place] , Service support , CC: Dr. Donna Perdomo MD; Dr. Lesly Posada MD Hosiery Mater: Signed Dylan Velarde Work Phone: Start: 07-17-2022 Plain chest X-ray Start: 07-17-2022 End: 07-17-2022 Abdomen/Pelvis W IV Cont ONLY Procedure Note: See Note; NOTES: [facility] Imaging Services [address] [place] [address] Abdomen/Pelvis W IV Cont ONLY MR#: [id number] Acct: [id number] Name: DOUG FLANAGAN Rep #: [id number] : 1990 F 31 From: Siva Ozuna PCP: Dr. Donna Perdomo MD Status: REG ER Study: Abdomen/Pelvis W IV Cont ONLY Date of Exam: Exam# [id number] Ordering Dr: Lesly Posada MD STUDY: CT Abdomen And Pelvis W/ Contrast Injection 07/17/2022 6:32 PM REASON FOR EXAM: Female, 31 years old. ABDOMINAL PAIN abdominal pain TECHNIQUE: Transaxial images were obtained without oral contrast, and with IV 100mL Isovue-300 intravenous contrast. Individualized dose optimization techniques were used for this CT. COMPARISON: 03.27.22. FINDINGS: The visualized lung bases are unremarkable. The visualized portions of the heart are within normal limits. Unremarkable liver. Unremarkable gallbladder and extrahepatic biliary system. Unremarkable spleen. Unremarkable pancreas. Unremarkable bilateral adrenal glands. No acute findings of the right kidney. No acute findings of the left kidney. Unremarkable visualized stomach. Unremarkable small intestine. Stool throughout the colon. There is non-visualization of the appendix. There are no acute findings of the abdominal aorta. Unremarkable inferior vena cava. Subcentimeter mesenteric lymph nodes. Unremarkable urinary bladder. Normal visualized uterus. An intrauterine device is identified within the uterus. There is an umbilical hernia containing fat. Unremarkable osseous structures. CT/Abdomen/Pelvis W IV Cont ONLY IMPRESSION: (NOT LISTED IN ORDER OF SIGNIFICANCE) Constipation. Other findings as above. Electronically Signed: Siva To MD at 18:34 EDT Reading Location ID and State: [address] [place] [address] , Service support , CC: Dr. Donna Perdomo MD; Dr. Lesly Posada MD Hosiery Mater: Signed Dylan Velarde Work Phone: Start: 07-17-2022 Computed tomography of abdomen and pelvis with intravenous contrast Start: 07-17-2022 End: 07-17-2022 Emergency Department Summary Procedure Note: See Note; NOTES: [facility] Medical Records Department [address] [place] [address] Emergency Department Summary 07/17/22 MR#: [id number] Acct: [id number] Name: DOUG FLANAGAN Rep #: [id number] : 1990 31 From: Lesly Posada MD PCP: Dr. Donna Perdomo MD Status:DEP ER Location: ED HPI History of Present Illness Chief Complaint: Abd Pain Informant: patient Onset/Context/Timing Onset: Days Context: Gradual Onset Narrative Narrative: Patient present secondary to upper abdominal pain. She states she went to the urgent care several days ago with chest congestion and thought she was getting a cold. Her work-up was unremarkable and she was advised to come back if she did not feel better. She states her chest congestion seems to be better but she now has developed upper abdominal pain that goes from the epigastric area around to the left flank region. She states she does have pain that radiates up around her left breast and into her chest. She feels like she cannot get a deep breath. She states internally she feels warm and as if she is having chills, but she has not had a fever when she checked her temperature. She denies urinary symptoms. [facility] Medical History Anemia Chest pain Difficulty chewing Difficulty swallowing History of stress test Hx of peripheral vascular disease Injury of head and neck Leg cramps Migraine headache Myasthenia gravis Non-smoker Normal echocardiogram ( 05/18/16) Seizures Shortness of breath on exertion Home Medications zonisamide 100 mg capsule 200 mg PO 0800 seizures 12/23/17 [History Last Taken 10/17/21] lorazepam 1 mg tablet 1 mg PO DAILY PRN PRN Seizure 01/07/18 [History Last Taken 05/03/18] zonisamide 100 mg capsule 300 mg PO QHS seizures 03/26/19 [History Last Taken 11/01/20 20:00] ropinirole 0.5 mg tablet 1 mg PO QHS spasms 10/06/19 [History Last Taken 11/01/20 20:00] lamotrigine 200 mg tablet,extended release 24 hr 100 mg PO 0800 seizures 10/14/20 [History Last Taken 10/17/21] lamotrigine 250 mg tablet,extended release 24 hr 250 mg PO QHS seizures 10/14/20 [History Last Taken 11/01/20 20:00] levonorgestrel 21 mcg/24 hours (8 yrs) 52 mg intrauterine device (Mirena) 20 mcg intrauterine UD control 10/14/20 [History Last Taken Unknown] oxcarbazepine 150 mg tablet 150 mg PO QHS SEIZURES 10/14/20 [History Last Taken 11/01/20 20:00] apixaban 5 mg tablet (Eliquis) 5 mg PO BID blood clot 11/02/20 [History Last Taken 10/13/21] ferrous sulfate 325 mg (65 mg iron) tablet (iron) 325 mg PO DAILY anemia 11/02/20 [History Last Taken 11/01/20 08:00] escitalopram oxalate 10 mg tablet (Lexapro) 10 mg PO QHS 10/09/21 [History Last Taken Unknown] Ultomiris 02/05/22 [History Last Taken Unknown] hydrocodone-acetaminophen 5-325mg 5mg-325mg 1 tab PO Q6H PRN PRN Pain 3 days #10 TABLETS 05/27/22 [Rx Last Taken Unknown] meclizine 25 mg tablet 25 mg PO 4X/DAY PRN PRN Dizziness #20 tabs 05/27/22 [Rx Last Taken Unknown] Allergy/AdvReac Type Severity Reaction Status Date / Time levetiracetam [From Keppra] Allergy Other Verified 07/17/22 14:25 Penicillins Allergy Rash Verified 07/17/22 14:25 phenytoin [From Dilantin] Allergy PT UNSURE Verified 07/17/22 14:25 OF REACTION prochlorperazine Allergy Other Verified 07/17/22 14:25 [From Compazine] shellfish derived Allergy Other Verified 07/17/22 14:25 soy AdvReac NEEDS Verified 07/17/22 14:25 FOLLOW-UP Surgical History Hx of appendectomy Hx of thymectomy Hx of total hip arthroplasty Social History household members: spouse Smoking Status: Never smoker second hand exposure: Yes alcohol intake: never substance use type: does not use ROS ROS ED Constitutional Constitutional ED: Reports chills, fever(s), subjective and other Details: No measured fever. Eyes Eyes: Denies change in vision or discharge from eye(s) ENT ENT ED: Denies discharge from eye(s), rhinorrhea or sore throat Cardiovascular Cardiovascular: Denies chest pain or palpitations Respiratory/Chest Respiratory/Chest: Reports dyspnea; Denies cough Gastrointestinal Gastrointestinal: Reports abdominal pain and nausea; Denies diarrhea or vomiting Genitourinary Genitourinary ED: Denies difficulty urinating or dysuria Musculoskeletal Musculoskeletal: Reports back pain; Denies extremity pain Integumentary Denies Abrasions or rash Neurologic Neurologic: Denies headache(s) or weakness Psychiatric Psychiatric: Denies anxiety or depression Allergic/Immunologic Allergic/Immunologic ED: Denies lip swelling or urticaria EXAM Physical Exam Const Vital Signs: 07/17/22 14:24 07/17/22 17:20 Temperature 98 F Temperature Source Temporal Pulse Rate 91 82 Respiratory Rate 16 13 Blood Pressure 117/74 127/86 H Blood Pressure Mean 88 99 Pulse Ox 99 97 Oxygen Delivery Method Room Air Room Air Positive well nourished and well developed General Appearance ED: well developed HEENT Reports normocephalic and head/scalp atraumatic Eyes PERRL and EOMs intact bilaterally Neck supple Chest Wall inspection of chest normal and palpation of chest normal Resp normal respiratory effort and clear to auscultation bilaterally Cardio regular rate and regular rhythm GI GI Narrative: Hypoactive bowel sounds noted. Periumbilical/epigastric tenderness with no guarding or rebound. Palpation: soft Back/Spine General Back: CVA tenderness left Extremity normal to inspection Neuro oriented x3 and no sensory deficits noted Sensorium / Orientation: alert Motor Exam: strength 5/5 throughout Psych mental status grossly normal Skin no rashes or lesions noted MDM MDM MDM Narrative Medical decision making narrative: Labwork obtained to evaluate for leukocytosis, anemia, and electrolyte derangement. Urinalysis obtained to evaluate for infection/hematuria. Chest x-ray obtained given pain radiating into the chest along with a EKG. CT scan of the abdomen and pelvis with IV contrast ordered given her pain. Patient was treated with morphine and Zofran. Lab Data Attestation: I reviewed the patient's lab results. Labs: Laboratory Results - last 24 hr 07/17/22 07/17/22 07/17/22 15:20 15:20 15:20 WBC 8.1 RBC 4.91 Hgb 13.6 Hct 41.8 MCV 85.1 MCH 27.7 MCHC 32.5 RDW Std Deviation 42.0 RDW Coeff of Mariella 13.5 Plt Count 249 MPV 10.1 Immature Gran % (Auto) 0.400 Neut % (Auto) 68.4 Lymph % (Auto) 22.2 Whiteside % (Auto) 7.0 Eos % (Auto) 1.5 Baso % (Auto) 0.5 Absolute Neuts (auto) 5.5 Absolute Lymphs (auto) 1.79 Nucleated RBC % 0 D-Dimer Quant (PE/DVT) Sodium 140 Potassium 3.4 L Chloride 111 H Carbon Dioxide 21.0 Anion Gap 8 BUN 8 Creatinine 0.74 Estim Creat Clear Calc 85.52 Est GFR (MDRD) Af Amer 115 Est GFR (MDRD) Non-Af 95 BUN/Creatinine Ratio 10.8 Glucose 89 Calcium 9.4 Total Bilirubin Direct Bilirubin AST ALT Alkaline Phosphatase Troponin I High Sens Total Protein Albumin Globulin Lipase Serum , Qual Urine Color Yellow Urine Clarity Clear Urine pH 5.0 Ur Specific [place] 1.010 Urine Protein Negative Urine Glucose (UA) Normal Urine Ketones 5 H Urine Occult Blood 10 H Urine Nitrite Negative Urine Bilirubin Negative Urine Urobilinogen Normal Ur Leukocyte Esterase 25 H Urine RBC 0 SEEN Urine WBC 0 SEEN Ur Squamous Epith Cells 0-5 SEEN Urine Bacteria 0 SEEN Urine Mucus 0 SEEN 07/17/22 07/17/22 07/17/22 15:20 15:20 16:20 WBC RBC Hgb Hct MCV MCH MCHC RDW Std Deviation RDW Coeff of Mariella Plt Count MPV Immature Gran % (Auto) Neut % (Auto) Lymph % (Auto) Whiteside % (Auto) Eos % (Auto) Baso % (Auto) Absolute Neuts (auto) Absolute Lymphs (auto) Nucleated RBC % D-Dimer Quant (PE/DVT) < 0.27 L Sodium Potassium Chloride Carbon Dioxide Anion Gap BUN Creatinine Estim Creat Clear Calc Est GFR (MDRD) Af Amer Est GFR (MDRD) Non-Af BUN/Creatinine Ratio Glucose Calcium Total Bilirubin 0.40 Direct Bilirubin 0.06 AST 15 ALT 19 Alkaline Phosphatase 92 Troponin I High Sens 3 Total Protein 7.6 Albumin 4.2 Globulin 3.4 Lipase 161 Serum , Qual NEGATIVE Urine Color Urine Clarity Urine pH Ur Specific [place] Urine Protein Urine Glucose (UA) Urine Ketones Urine Occult Blood Urine Nitrite Urine Bilirubin Urine Urobilinogen Ur Leukocyte Esterase Urine RBC Urine WBC Ur Squamous Epith Cells Urine Bacteria Urine Mucus Radiography Diagnostic Testing: Clinical Impression(s) from Imaging Studies Abdomen/Pelvis CT 07/17/22 17:20 IMPRESSION: (NOT LISTED IN ORDER OF SIGNIFICANCE) Constipation. Other findings as above. Electronically Signed: Siva To MD at 18:34 EDT , Chest X-Ray 07/17/22 17:21 IMPRESSION: No acute findings in the chest. Electronically Signed: Siva To MD at 17:38 EDT , Treatment and Re-Evaluation :: CBC unremarkable. Chemistry studies normal other than potassium slightly low at 3.4. LFTs and lipase normal. D-dimer is less than 0.27. test is negative. Urinalysis reveals no sign of acute infection. Chest x-ray per my interpretation reveals port to be in place with no acute findings. Radiology interpretation is reviewed and agrees. CT scan of the abdomen and pelvis reveals constipation with no other acute findings. Patient states that she has had problems with constipation. She had a colonoscopy in April and takes 2 scoops of MiraLAX every morning. Given the degree of constipation she has currently we will give her a bottle of GoLytely to take this weekend to get herself cleaned out. Return instructions were provided. Discharge Plan Triage Chief Complaint: Abd Pain ED Provider: Lesly Posada Dx/Rx/DC Orders Clinical Impression: Abdominal pain, Constipation Instructions: ED Constipation (Adult) Prescriptions: No Action zonisamide 100 capsule 200 mg PO 0800 Label Comments: seizures lorazepam 1 MG tablet 1 mg PO DAILY PRN PRN (Reason: Seizure) Label Comments: seizures zonisamide 100 MG capsule 300 mg PO QHS Label Comments: seizures ropinirole 0.5 MG tablet 1 mg PO QHS oxcarbazepine 150 mg tablet 150 mg PO QHS Mirena 20 mcg/24 hours (6 yrs) 52 mg Intrauterine Device 20 mcg INTRAUTERINE UD Label Comments: already placed lamotrigine 200 mg tablet extended release 24hr 100 mg PO 0800 Label Comments: take 1 tablet by mouth once daily lamotrigine 250 mg tablet extended release 24hr 250 mg PO QHS Label Comments: take 1 tablet by mouth once daily at bedtime ferrous sulfate [iron] 325 mg (65 mg iron) Tablet 325 mg PO DAILY Eliquis 5 mg tablet 5 mg PO BID Label Comments: TAKE 2 TABLETS BY MOUTH TWICE DAILY FOR 7 DAYS, THEN TAKE 1 TABLET TWICE DAILY escitalopram oxalate [Lexapro] 10 mg Tablet 10 mg PO QHS Ultomiris Rx Instructions: q 8 weeks hydrocodone-acetaminophen 5-325 mg tablet 1 tab PO Q6H PRN PRN (Reason: Pain) 3 Days Qty: 10 0RF meclizine 25 mg tablet 25 mg PO 4X/DAY PRN PRN (Reason: Dizziness) Qty: 20 0RF Primary Care Provider: Donna Perdomo Referrals: Donna Perdomo MD [Primary Care Provider] - 1 Week if not improving Disposition Disposition: Home, Self Care What to do if you have Problems For any increased pain, shortness of breath, bleeding, nausea or vomiting, chest pain, or any unexpected problems, contact your Primary Care Provider. Call [facility] ([phone]) or report to the closest Emergency Room. Call 911 if necessary. 07/17/222138 <Electronically signed by Lesly Posada MD> Cosigner Signature (if applicable): CC: Dr. Donna Perdomo MD Signed Dylan Velarde Work Phone: Start: 07-17-2022 End: 07-20-2022 12 Lead EKG Procedure Note: See Note; NOTES: [facility] Cardiovascular Services [address] [place] [address] 12 Lead EKG 07/17/22 1629 MR#: [id number] Acct: [id number] Name: DOUG FLANAGAN Rep #: [id number] : 1990 31 From: Yoly Rand MD Attending Dr: Status: DEP ER Ordering Dr: Lesly Posada MD Date: 07/17/22 Location: ED Sex: F C Admitted: Test Reason : ABDOMINAL PAIN Blood Pressure : / mmHG Vent. Rate : 083 BPM Atrial Rate : 083 BPM P-R Int : 184 ms QRS Dur : 082 ms QT Int : 364 ms P-R-T Axes : 048 -06 031 degrees QTc Int : 427 ms Normal sinus rhythm Nonspecific T wave abnormality Abnormal ECG Confirmed by SVITLANA SALGADO, PEREZ ([id number]), editorial project manager SALOME MENJIVAR ([id number]) on 07/20/2022 12:28:24 PM Referred By: Confirmed By:MARINA RAND MD 07/20/22 1228 Date Yoly Rand MD CC: Dr. Donna Perdomo MD; Dr. Lesly Posada MD Signed Dylan Velarde Work Phone: Start: 05-27-2022 End: 05-27-2022 Emergency Department Summary Procedure Note: See Note; NOTES: [facility] Medical Records Department [address] [place] [address] Emergency Department Summary 05/27/22 MR#: [id number] Acct: [id number] Name: DOUG FLANAGAN Rep #: [id number] : 1990 31 From: Shauna Peck DO PCP: Dr. Donna Perdomo MD Status:DEP ER Location: ED HPI History of Present Illness Chief Complaint: Fall Informant: patient Narrative Narrative: Is a 31-year-old female with history of myasthenia gravis (on every 8-week infusions of Ravulizumab), seizure disorder and migraines presenting for fall downstairs. Patient is on 5 mg Eliquis daily to extend the life of her port. She last had an infusion for her myasthenia gravis yesterday. She states yesterday she was wearing wet shoes in the house and she slipped and fell landing on her right hip. She had been having some right hip pain since. Today she was on the top of the stairs talking to her son when she turned and her hip gave out and she fell down the stairs. She states she fell down 13 steps headfirst and her head hit each step on the way down. When she got to the bottom she had episode of nausea and vomiting no she feels dizzy. She is complaining of left-sided thoracic back pain, left shoulder plain and left-sided neck pain. She continues to complain of right-sided hip pain from her fall yesterday. She does have a headache. No other complaints at this time. [facility] Medical History Anemia Chest pain Difficulty chewing Difficulty swallowing History of stress test Hx of peripheral vascular disease Injury of head and neck Leg cramps Migraine headache Myasthenia gravis Non-smoker Normal echocardiogram ( 05/18/16) Seizures Shortness of breath on exertion Home Medications zonisamide 100 mg capsule 200 mg PO 0800 seizures 12/23/17 [History Last Taken 10/17/21] lorazepam 1 mg tablet 1 mg PO DAILY PRN PRN Seizure 01/07/18 [History Last Taken 05/03/18] zonisamide 100 mg capsule 300 mg PO QHS seizures 03/26/19 [History Last Taken 11/01/20 20:00] ropinirole 0.5 mg tablet 1 mg PO QHS spasms 10/06/19 [History Last Taken 11/01/20 20:00] lamotrigine 200 mg tablet,extended release 24 hr 100 mg PO 0800 seizures 10/14/20 [History Last Taken 10/17/21] lamotrigine 250 mg tablet,extended release 24 hr 250 mg PO QHS seizures 10/14/20 [History Last Taken 11/01/20 20:00] levonorgestrel 21 mcg/24 hours (8 yrs) 52 mg intrauterine device (Mirena) 20 mcg intrauterine UD control 10/14/20 [History Last Taken Unknown] oxcarbazepine 150 mg tablet 150 mg PO QHS SEIZURES 10/14/20 [History Last Taken 11/01/20 20:00] apixaban 5 mg tablet (Eliquis) 5 mg PO BID blood clot 11/02/20 [History Last Taken 10/13/21] ferrous sulfate 325 mg (65 mg iron) tablet (iron) 325 mg PO DAILY anemia 11/02/20 [History Last Taken 11/01/20 08:00] escitalopram oxalate 10 mg tablet (Lexapro) 10 mg PO QHS 10/09/21 [History Last Taken Unknown] Ultomiris 02/05/22 [History Last Taken Unknown] hydrocodone-acetaminophen 5-325mg 5mg-325mg 1 tab PO Q6H PRN PRN Pain 3 days #10 TABLETS 05/27/22 [Rx Last Taken Unknown] meclizine 25 mg tablet 25 mg PO 4X/DAY PRN PRN Dizziness #20 tabs 05/27/22 [Rx Last Taken Unknown] Allergy/AdvReac Type Severity Reaction Status Date / Time levetiracetam [From Keppra] Allergy Other Verified 05/27/22 10:35 Penicillins Allergy Rash Verified 05/27/22 10:35 phenytoin [From Dilantin] Allergy PT UNSURE Verified 05/27/22 10:35 OF REACTION prochlorperazine Allergy Other Verified 05/27/22 10:35 [From Compazine] shellfish derived Allergy Other Verified 05/27/22 10:35 soy AdvReac NEEDS Verified 05/27/22 10:35 FOLLOW-UP Surgical History Hx of appendectomy Hx of thymectomy Hx of total hip arthroplasty Social History household members: spouse Smoking Status: Never smoker second hand exposure: Yes alcohol intake: never substance use type: does not use ROS ROS ED Constitutional Constitutional ED: Denies chills or fever(s) Eyes Eyes: Denies blurry vision ENT ENT ED: Denies rhinorrhea or sore throat Cardiovascular Cardiovascular: Denies chest pain Respiratory/Chest Respiratory/Chest: Denies cough or dyspnea Gastrointestinal Gastrointestinal: Reports nausea and vomiting; Denies abdominal pain Musculoskeletal Musculoskeletal: Reports arthralgias, back pain, myalgias and neck pain Integumentary Denies Abrasions or rash Neurologic Neurologic: Reports headache(s); Denies paresthesias or weakness Psychiatric Psychiatric: Denies anxiety Hematologic/Lymphatic Hematologic/Lymphatic: Reports easy bleeding and easy bruising EXAM Physical Exam Const Vital Signs: 05/27/22 10:30 05/27/22 12:29 05/27/22 13:15 Temperature 96.4 F L Temperature Source Temporal Pulse Rate 107 H 74 Respiratory Rate 19 H 15 Respiratory Effort Normal Non-Labored Respiratory Depth Normal Respiratory Pattern Normal Blood Pressure 120/82 H 103/66 Blood Pressure Mean 94 78 Pulse Ox 100 99 Oxygen Delivery Method Room Air Room Air Positive well nourished and well developed General Appearance ED: well developed and NAD HEENT Reports TM's clear HEENT Narrative: No hemotympanum appreciated. No rhinorrhea present. No epistaxis. No malocclusion. atraumatic; Negative for trauma Tympanic Membrane ED: Yes TM's clear Eyes PERRL and EOMs intact bilaterally General Eye ED: Yes other Other Details: no nystagmus Neck Neck Narrative: No midline tenderness or step-off sign. Mild tenderness palpation of the right upper paraspinal region. Neck is immobilized in a c-collar. Chest Wall inspection of chest normal and palpation of chest normal Chest Narrative: medport in the right anterior chest wall No chest wall crepitus. Resp normal respiratory effort and clear to auscultation bilaterally Cardio regular rhythm and no murmurs GI normal to inspection, nondistended, normoactive bowel sounds and non-tender Back/Spine normal to inspection and no thoracic nor lumbar tenderness Extremity full ROM Extremity Narrative: No obvious deformity. No pain with logroll of the lower extremities. Pelvis is stable. Patient has diffuse tenderness of the left shoulder but is able to go through passive range of motion of the shoulder. No pinpoint area of tenderness. Normal rnfa strength bilaterally. Neuro oriented x3, CN's II-XII intact bilaterally, moves all extremities and no focal motor deficits Julio Coma Scale: document GCS findings Spontaneous Obeys Commands Oriented 15 Psych mental status grossly normal and thought process normal Skin no rashes or lesions noted and no wounds MDM MDM MDM Narrative Medical decision making narrative: Patient is a 31-year-old female with history of myasthenia gravis, DVT and long-term anticoagulation on Eliquis presenting after fall down a flight of stairs. She is complaining of headache, dizziness, neck pain, left shoulder pain and right hip pain. ATLS protocol was followed and she has her ABCs intact. Her GCS is 15. CT of the head and C-spine obtained to rule out acute intracranial process with patient is at higher risk of given her long-term anticoagulation as well as C-spine fracture. These are negative for acute process. In addition x-ray of her chest, left shoulder and right hip obtained. The independently interpreted by myself as well as radiology and do not show any acute process. Patient's urinalysis does not show any hematuria do have low suspicion for any abdominal pelvic trauma based on physical exam. I do not think she require advanced imaging of the chest abdomen or pelvis. CMP is unremarkable and her test is negative. CBC is normal with no signs of thrombocytopenia or anemia. Her PTT is elevated which is consistent with her Eliquis use. Patient is initially given morphine, Zofran and IV fluids for symptom control in the ER. On repeat evaluation she continues to complain of shoulder pain however her passive and active range of motion is intact. I do not suspect any dislocation, subluxation or fracture. Is possible she has a contusion versus strain to her shoulder. She is able to ambulate in the emergency room. She is now complaining of continued headache and dizziness. She has a normal neurologic exam and I suspect she has a concussion versus some peripheral vertigo associated with her head injury today. Given her normal neurologic exam I have a lower suspicion for blunt cerebrovascular injury. Patient is given diazepam for her dizziness and then Solu-Medrol and additional fluids for her headache. As she is anticoagulated I do not want to give her NSAIDs and she has had a reaction to Compazine for headaches. On repeat evaluation she is improving. She is given a dose of [place] for further muscle skeletal pain and is prescribed a short course of [place] as well as meclizine for her symptoms. She is given referral to orthopedics for her shoulder and hip pain as well as ENT if vertigo persist. She has a neurologist that she will follow-up with a call tomorrow. She is given return precautions as well as concussion care. Patient and mother verbalized agreement and understand this plan. Patient discharged home in stable condition. Lab Data Labs: Laboratory Results - last 24 hr 05/27/22 05/27/22 05/27/22 11:15 11:15 11:15 WBC 7.5 RBC 4.63 Hgb 12.6 Hct 39.2 MCV 84.7 MCH 27.2 MCHC 32.1 RDW Std Deviation 43.0 RDW Coeff of Mariella 13.9 Plt Count 241 MPV 9.3 Immature Gran % (Auto) 0.300 Neut % (Auto) 70.1 H Lymph % (Auto) 20.2 Whiteside % (Auto) 7.4 Eos % (Auto) 1.5 Baso % (Auto) 0.5 Absolute Neuts (auto) 5.2 Absolute Lymphs (auto) 1.51 Nucleated RBC % 0 PT INR APTT Sodium 139 Potassium 3.6 Chloride 112 H Carbon Dioxide 20.0 L Anion Gap 7 BUN 7 Creatinine 0.65 Estim Creat Clear Calc 97.36 Est GFR (MDRD) Af Amer 134 Est GFR (MDRD) Non-Af 111 BUN/Creatinine Ratio 10.7 Glucose 103 Calcium 8.8 Total Bilirubin 0.30 Direct Bilirubin 0.09 AST 11 L ALT 18 Alkaline Phosphatase 77 Total Protein 7.0 Albumin 3.5 Globulin 3.5 Serum , Qual NEGATIVE Urine Color Urine Clarity Urine pH Ur Specific [place] Urine Protein Urine Glucose (UA) Urine Ketones Urine Occult Blood Urine Nitrite Urine Bilirubin Urine Urobilinogen Ur Leukocyte Esterase Urine RBC Urine WBC Ur Squamous Epith Cells Urine Bacteria Urine Mucus 05/27/22 05/27/22 11:15 11:30 WBC RBC Hgb Hct MCV MCH MCHC RDW Std Deviation RDW Coeff of Mariella Plt Count MPV Immature Gran % (Auto) Neut % (Auto) Lymph % (Auto) Whiteside % (Auto) Eos % (Auto) Baso % (Auto) Absolute Neuts (auto) Absolute Lymphs (auto) Nucleated RBC % PT 13.5 INR 1.1 APTT 101.1 H* Sodium Potassium Chloride Carbon Dioxide Anion Gap BUN Creatinine Estim Creat Clear Calc Est GFR (MDRD) Af Amer Est GFR (MDRD) Non-Af BUN/Creatinine Ratio Glucose Calcium Total Bilirubin Direct Bilirubin AST ALT Alkaline Phosphatase Total Protein Albumin Globulin Serum , Qual Urine Color Yellow Urine Clarity Sl. Cloudy Urine pH 8.0 Ur Specific [place] 1.010 Urine Protein Negative Urine Glucose (UA) Normal Urine Ketones Negative Urine Occult Blood Negative Urine Nitrite Negative Urine Bilirubin Negative Urine Urobilinogen Normal Ur Leukocyte Esterase 25 H Urine RBC 0 SEEN Urine WBC 0-5 SEEN Ur Squamous Epith Cells 0 SEEN Urine Bacteria 0 SEEN Urine Mucus 0 SEEN Radiography Diagnostic Testing: Clinical Impression(s) from Imaging Studies Hip/Pelvis X-Ray 05/27/22 10:53 IMPRESSION: Normal x-ray examination of the pelvis and hip. Electronically Signed: Mitchel Conrad MD at 12:20 EST , Shoulder X-Ray 05/27/22 10:53 IMPRESSION: Normal x-ray examination of the shoulder. Electronically Signed: Mitchel Conrad MD at 12:21 EST , Brain CT 05/27/22 10:54 IMPRESSION: Normal unenhanced CT scan of the brain. Electronically Signed: Mitchel Conrad MD at 11:58 EST , Cervical Spine CT 05/27/22 10:54 IMPRESSION: Normal unenhanced CT examination of the cervical spine. Electronically Signed: Mitchel Conrad MD at 12:00 EST , Chest X-Ray 05/27/22 10:54 IMPRESSION: Normal x-ray examination of the chest. Electronically Signed: Mitchel Conrad MD at 12:19 EST , Discharge Plan Triage Chief Complaint: Fall Other Complaint: Other, Pain/Inj ED Provider: Shauna Peck Dx/Rx/DC Orders Clinical Impression: Closed head injury, Fall down stairs, Acute pain of left shoulder due to trauma, Anticoagulant long-term use, Dizziness, Acute pain of left shoulder Instructions: ED Concussion, ED Head Injury (Adult), ED Vertigo, Unspecified Prescriptions: New hydrocodone-acetaminophen 5-325 mg tablet 1 tab PO Q6H PRN PRN (Reason: Pain) 3 Days Qty: 10 0RF meclizine 25 mg tablet 25 mg PO 4X/DAY PRN PRN (Reason: Dizziness) Qty: 20 0RF No Action zonisamide 100 capsule 200 mg PO 0800 Label Comments: seizures lorazepam 1 MG tablet 1 mg PO DAILY PRN PRN (Reason: Seizure) Label Comments: seizures zonisamide 100 MG capsule 300 mg PO QHS Label Comments: seizures ropinirole 0.5 MG tablet 1 mg PO QHS oxcarbazepine 150 mg tablet 150 mg PO QHS Mirena 20 mcg/24 hours (6 yrs) 52 mg Intrauterine Device 20 mcg INTRAUTERINE UD Label Comments: already placed lamotrigine 200 mg tablet extended release 24hr 100 mg PO 0800 Label Comments: take 1 tablet by mouth once daily lamotrigine 250 mg tablet extended release 24hr 250 mg PO QHS Label Comments: take 1 tablet by mouth once daily at bedtime ferrous sulfate [iron] 325 mg (65 mg iron) Tablet 325 mg PO DAILY Eliquis 5 mg tablet 5 mg PO BID Label Comments: TAKE 2 TABLETS BY MOUTH TWICE DAILY FOR 7 DAYS, THEN TAKE 1 TABLET TWICE DAILY escitalopram oxalate [Lexapro] 10 mg Tablet 10 mg PO QHS Ultomiris Rx Instructions: q 8 weeks Primary Care Provider: Donna Perdomo Referrals: Aman Khan MD [Med Staff - Courtesy Staff] - As Needed (for vertigo) Donna Perdomo MD [Primary Care Provider] - Duong Ramos MD [Med Staff - Active Staff] - 3-5 Days if not improving Disposition Disposition: Home, Self Care Discharge Date/Time: 05/27/22 16:17 What to do if you have Problems For any increased pain, shortness of breath, bleeding, nausea or vomiting, chest pain, or any unexpected problems, contact your Primary Care Provider. Call [facility] ([phone]) or report to the closest Emergency Room. Call 911 if necessary. 05/27/22 1702 <Electronically signed by Shauna Peck DO> Cosigner Signature (if applicable): CC: Dr. Donna Perdomo MD Signed Dylan Velarde Work Phone: Start: 05-27-2022 End: 05-27-2022 Brain/Head without Contrast Procedure Note: See Note; NOTES: [facility] Imaging Services [address] [place] [address] Brain/Head without Contrast MR#: [id number] Acct: [id number] Name: DOUG FLANAGAN Rep #: [id number] : 1990 F 31 From: Mitchel vieira MD PCP: Dr. Donna Perdomo MD Status: REG ER Study: Brain/Head without Contrast Date of Exam: 05/04 09/22 Exam# [id number] Ordering Dr: Shauna Peck DO STUDY: CT BRAIN WITHOUT CONTRAST REASON FOR EXAM: Female, 31 years old. Head trauma due to a fall. RADIATION DOSAGE (If Supplied By Facility): CTDIvol = ( 44.99 ) mGy, DLP = ( 812.98 ) mGycm TECHNIQUE: Transaxial CT imaging of the brain was performed without administration of intravenous contrast material. Individualized dose optimization techniques were used for this CT. COMPARISON: Comparison is made with prior study dated 02/05/2022. FINDINGS: Normal soft tissue structures. Normal calvarium. Normal size ventricles and extra-axial spaces for the patient''s age. Normal white matter tracts of the cerebral hemispheres. Normal basal ganglia and thalami. Normal brainstem. Normal cerebellum. There is no intracranial hemorrhage. There are no findings of an acute ischemic infarction. Normal visualized paranasal sinuses. CT/Brain/Head without Contrast IMPRESSION: Normal unenhanced CT scan of the brain. Electronically Signed: Mitchel Conrad MD at 11:58 EST , CC: Dr. Shauna Peck DO; Dr. Donna Perdomo MD Hosiery Mater: Signed Dylan Velarde Work Phone: Start: 05-27-2022 End: 05-27-2022 Chest 1 View (Portable) Procedure Note: See Note; NOTES: [facility] Imaging Services [address] [place] [address] Chest 1 View (Portable) MR#: [id number] Acct: [id number] Name: DOUG FLANAGAN Rep #: [id number] : 1990 F 31 From: Mitchel vieira MD PCP: Dr. Donna Perdomo MD Status: REG ER Study: Chest 1 View (Portable) Date of Exam: 05/27/22 Exam# [id number] Ordering Dr: Shauna Peck DO STUDY: X-RAY CHEST REASON FOR EXAM: Female, 31 years old. History of fall. TECHNIQUE: Single AP portable view of the chest. COMPARISON: Comparison is made with prior chest radiograph dated 01/12/2022. FINDINGS: A right-sided portacatheter is seen. The tip is at the junction of the superior vena cava and right atrium. The lungs are clear and expanded. There is no demonstrated pleural abnormality. Normal size heart. Normal mediastinum and shima. Normal visualized pulmonary arteries. Normal visualized aortic arch and descending thoracic aorta. Normal visualized thoracic spine. Normal visualized ribs, clavicles, and shoulders. There is no demonstrated abnormality of the visualized soft tissue structures of the upper abdomen. RAD/Chest 1 View (Portable) IMPRESSION: Normal x-ray examination of the chest. Electronically Signed: Mitchel Conrad MD at 12:19 EST , CC: Dr. Shauna Peck DO; Dr. Donna Perdomo MD Hosiery Mater: Signed Dylan Velarde Work Phone: Start: 05-27-2022 CT cervical spine without contrast Start: 05-27-2022 CT of head without contrast Start: 05-27-2022 Plain chest X-ray Start: 05-27-2022 End: 05-27-2022 Spine Cervical without Contras Procedure Note: See Note; NOTES: [facility] Imaging Services [address] [place] [address] Spine Cervical without Contras MR#: [id number] Acct: [id number] Name: DOUG FLANAGAN Rep #: [id number] : 1990 F 31 From: Mitchel vieira MD PCP: Dr. Donna Perdomo MD Status: REG ER Study: Spine Cervical without Contras Date of Exam: 0 05/27/22 Exam# [id number] Ordering Dr: Shauna Peck DO STUDY: CT CERVICAL SPINE WITHOUT CONTRAST REASON FOR EXAM: Female, 31 years old. Trauma due to a fall. RADIATION DOSAGE (If Supplied By Facility): CTDIvol = ( 23.96 ) mGy, DLP = ( 545.98 ) mGycm TECHNIQUE: High resolution transaxial imaging was performed without contrast material. Sagittal and coronal images were reconstructed. Individualized dose optimization techniques were used for this CT. COMPARISON: None FINDINGS: A right-sided central catheter is seen within the superior vena cava. Normal craniovertebral junction. Normal anterior atlantoaxial articulation. Normal odontoid process. Normal cervical lordosis. Normal vertebral bodies and posterior osseous elements. C2-3: Normal endplates. Normal disc height and morphology. Normal central canal and intervertebral neuroforamina. C3-4: Normal endplates. Normal disc height and morphology. Normal central canal and intervertebral neuroforamina. C4-5: Normal endplates. Normal disc height and morphology. Normal central canal and intervertebral neuroforamina. C5-6: Normal endplates. Normal disc height and morphology. Normal central canal and intervertebral neuroforamina. C6-7: Normal endplates. Normal disc height and morphology. Normal central canal and intervertebral neuroforamina. C7-T1: Normal endplates. Normal disc height and morphology. Normal central canal and intervertebral neuroforamina. Normal visualized soft tissue structures. CT/Spine Cervical without Contras IMPRESSION: Normal unenhanced CT examination of the cervical spine. Electronically Signed: Mitchel Conrad MD at 12:00 EST Reading Location ID and State: [address] [place] [address] , Service support , CC: Dr. Shauna Peck DO; Dr. Donna Perdomo MD Hosiery Mater: Signed Dylan Velarde Work Phone: Start: 05-27-2022 End: 05-27-2022 HIP, UNI W/ Pelvis 2-3 Views Procedure Note: See Note; NOTES: [facility] Imaging Services [address] [place] [address] HIP, UNI W/ Pelvis 2-3 Views MR#: [id number] Acct: [id number] Name: DOUG FLANAGAN Rep #: [id number] : 1990 F 31 From: Mitchle vieira MD PCP: Dr. Donna Perdomo MD Status: [facility] Study: HIP, UNI W/ Pelvis 2-3 Views Date of Exam: Exam# [id number] Ordering Dr: Shauna Peck DO STUDY: X-RAY - PELVIS AND RIGHT HIP REASON FOR EXAM: Female, 31 years old. Right hip pain following a fall. TECHNIQUE: 3 views of the pelvis and hip. COMPARISON: None. FINDINGS: There is a non-specific bowel gas pattern. Normal visualized soft tissue structures. Normal bilateral iliac wings, sacroiliac joints and visualized sacrum. Normal bilateral superior and inferior pubic rami. Normal pubic symphysis. Normal bilateral ischial tuberosities. Normal visualized femoral head. Normal acetabulum. Normal hip joint. RAD/HIP, UNI W/ Pelvis 2-3 Views IMPRESSION: Normal x-ray examination of the pelvis and hip. Electronically Signed: Mitchel Conrad MD at 12:20 EST , CC: Dr. Shauna Peck DO; Dr. Donna Perdomo MD Hosiery Mater: Signed Dylan Velarde Work Phone: Start: 05-27-2022 Plain x-ray of pelvis and lower extremity Start: 05-27-2022 Plain X-ray of shoulder Start: 05-27-2022 End: 05-27-2022 Shoulder min 2 Views Procedure Note: See Note; NOTES: [facility] Imaging Services [address] [place] [address] Shoulder min 2 Views MR#: [id number] Acct: [id number] Name: DOUG FLANAGAN Rep #: [id number] : 1990 F 31 From: Mitchel vieira MD PCP: Dr. Donna Perdomo MD Status: REG ER Study: Shoulder min 2 Views Date of Exam: 05/27/22 Exam# [id number] Ordering Dr: Shauna Peck DO STUDY: X-RAY - LEFT SHOULDER REASON FOR EXAM: Female, 31 years old. Pain following injury. TECHNIQUE: 4 view(s) of the shoulder. COMPARISON: None. FINDINGS: Normal glenohumeral articulation. Normal acromioclavicular joint. Normal acromion. Normal humeral head and visualized proximal humerus. The soft tissue structures are unremarkable. Normal visualized pulmonary apex. RAD/Shoulder min 2 Views IMPRESSION: Normal x-ray examination of the shoulder. Electronically Signed: Mitchel Conrad MD at 12:21 EST , CC: Dr. Shauna Peck, DO; Dr. Donna Perdomo MD Hosiery Mater: Signed Dylan Velarde Work Phone: Start: 04-29-2022 Cytp c/v auto thin lyr prepj scr mnl rescr phys Sarah Pop MD Work Phone: Start: 04-29-2022 Iadna human papillomavirus high-risk types Sarah Pop MD Work Phone: Start: 04-29-2022 SURGICAL PATHOLOGY Sarah Pop MD Work Phone: Start: 04-29-2022 Urine test visual color cmprsn meths Sarah Pop MD Work Phone: Start: 04-29-2022 Microscopic observation [Identifier] in Cervix by Cyto stain Ach Portable Start: 04-08-2022 Colonoscopy flx dx w/collj spec when pfrmd Becky Lubin PA-C Work Phone: Start: 04-01-2022 Radiologic exam abdomen 2 views Becky Lubin PA-C Work Phone: Start: 03-27-2022 End: 03-27-2022 Abdomen/Pelvis without Cont Procedure Note: See Note; NOTES: [facility] Imaging Services [address] [place] [address] Abdomen/Pelvis without Cont MR#: [id number] Acct: [id number] Name: DOUG FLANAGAN Rep #: [id number] : 1990 F 31 From: Patrick velez MD PCP: Dr. Donna Perdomo MD Status: REG ER Study: Abdomen/Pelvis without Cont Date of Exam: 03/04 09/21 Exam# [id number] Ordering Dr: Jhon Priest DO STUDY: CT ABDOMEN AND PELVIS WITHOUT CONTRAST REASON FOR EXAM: Female, 31 years old. Pain LLQ pain, nausea, history of appendectomy. RADIATION DOSAGE (If Supplied By Facility): CTDIvol = ( 8.49 ) mGy, DLP = ( 445.67 ) mGycm TECHNIQUE: Transaxial images were obtained from the dome of the diaphragm to the symphysis pubis without oral contrast, and without intravenous contrast. Sagittal and coronal images were reconstructed. Individualized dose optimization techniques were used for this CT. COMPARISON: None. FINDINGS: There are chronic interstitial fibrotic changes of the lung bases. Normal liver. No intrahepatic biliary duct dilatation or liver mass. Normal gallbladder and extrahepatic biliary system. Normal spleen. Normal pancreas. Normal bilateral adrenal glands. Normal right kidney. Normal left kidney. No hydronephrosis or renal masses. No visualized radiopaque stones. Normal visualized stomach. Normal small intestine. Normal colon. A linear calcification is seen in the wall of the proximal one third transverse colon. A large amount of stool is present throughout the colon. No diverticula are present. No bowel dilatation or obstruction. No free air or free fluid. There is non-visualization of the appendix. Normal abdominal aorta. Normal inferior vena cava. Normal retroperitoneum. Normal urinary bladder. The uterus and adnexa are unremarkable. An intrauterine device is present. Normal abdominal wall. Normal osseous structures. CT/Abdomen/Pelvis without Cont IMPRESSION: 1. No acute process of the abdomen and pelvis. 2. Large amount retained stool in the colon 3. No free air or free fluid or bowel dilatation or obstruction. Electronically Signed: Patrick Quiroz MD at 11:57 EST Reading Location ID and State: [address] [place] [address] , Service support , CC: Dr. Donna Perdomo MD; Dr. Jhon Priest DO Hosiery Mater: Signed Dylan Velarde Work Phone: Start: 03-27-2022 CT of abdomen and pelvis without contrast Dr. Donna Perdomo Work Phone: Start: 03-27-2022 End: 03-27-2022 Emergency Department Summary Procedure Note: See Note; NOTES: [facility] Medical Records Department [address] [place] [address] Emergency Department Summary 03/27/22 MR#: [id number] Acct: [id number] Name: DOUG FLANAGAN Rep #: [id number] : 1990 31 From: Jhon Priest DO PCP: Dr. Donna Perdomo MD Status:DEP ER Location: ED HPI HPI - GI History of Present Illness Chief Complaint: Abd Pain Abdominal Pain/Flank Pain Onset: Days (5) Context: Sudden Onset Timing: Continuous Quality: Sharp and Stabbing Location: LLQ and Left Flank Worsened by: Food Relieved by: Nothing Nausea/Vomiting/Emesis GI Symptom: Positive for Nausea and Vomiting Onset: Days (6) Quality: Negative for Blood streaks, Coffee ground or Hematemesis Diarrhea/Melena/Hematochez ia GI Symptom: Negative for Diarrhea, Melena or Hematochezia Associated Symptoms Associated Symptoms: Negative for Dysuria, Frequency or Hematuria LMP: Approximately 10 days ago Narrative Narrative: Patient presents with left-sided abdominal pain that has been constant for the past 5 days. Patient states she has had some nausea and vomiting this started 6 days ago. Patient states that this has improved. Patient states her pain has been constant. Patient went to urgent care today and was referred to the emergency department. Patient describes her pain as sharp and stabbing. Patient states it is over the left flank and into the left lower abdomen. Patient states it is worse with eating. Patient states nothing seems to help with it. Patient denies any diarrhea, melena, or hematochezia. Patient denies any dysuria or hematuria. Patient denies any urinary frequency. Patient states her last menstrual period was approximately 1-1/2 weeks ago. [facility] Medical History Anemia Chest pain Difficulty chewing Difficulty swallowing History of stress test Hx of peripheral vascular disease Injury of head and neck Leg cramps Migraine headache Myasthenia gravis Non-smoker Normal echocardiogram ( 05/18/16) Seizures Shortness of breath on exertion Home Medications zonisamide 100 mg capsule 200 mg PO 0800 seizures 12/23/17 [History Last Taken 10/17/21] lorazepam 1 mg tablet 1 mg PO DAILY PRN PRN Seizure 01/07/18 [History Last Taken 05/03/18] zonisamide 100 mg capsule 300 mg PO QHS seizures 03/26/19 [History Last Taken 11/01/20 20:00] ropinirole 0.5 mg tablet 1 mg PO QHS spasms 10/06/19 [History Last Taken 11/01/20 20:00] lamotrigine 200 mg tablet,extended release 24 hr 100 mg PO 0800 seizures 10/14/20 [History Last Taken 10/17/21] lamotrigine 250 mg tablet,extended release 24 hr 250 mg PO QHS seizures 10/14/20 [History Last Taken 11/01/20 20:00] levonorgestrel 20 mcg/24 hours (8 yrs) 52 mg intrauterine device (Mirena) 20 mcg intrauterine UD control 10/14/20 [History Last Taken Unknown] oxcarbazepine 150 mg tablet 150 mg PO QHS SEIZURES 10/14/20 [History Last Taken 11/01/20 20:00] apixaban 5 mg tablet (Eliquis) 5 mg PO BID blood clot 11/02/20 [History Last Taken 10/13/21] ferrous sulfate 325 mg (65 mg iron) tablet (iron) 325 mg PO DAILY anemia 11/02/20 [History Last Taken 11/01/20 08:00] escitalopram oxalate 10 mg tablet (Lexapro) 10 mg PO QHS 10/09/21 [History Last Taken Unknown] Ultomiris 02/05/22 [History Last Taken Unknown] Allergy/AdvReac Type Severity Reaction Status Date / Time levetiracetam [From Keppra] Allergy Other Verified 03/27/22 09:05 Penicillins Allergy Rash Verified 03/27/22 09:05 phenytoin [From Dilantin] Allergy PT UNSURE Verified 03/27/22 09:05 OF REACTION prochlorperazine Allergy Other Verified 03/27/22 09:05 [From Compazine] shellfish derived Allergy Other Verified 03/27/22 09:05 soy AdvReac NEEDS Verified 03/27/22 09:05 FOLLOW-UP Surgical History Hx of appendectomy Hx of thymectomy Hx of total hip arthroplasty Social History household members: spouse Smoking Status: Never smoker second hand exposure: Yes alcohol intake: never substance use type: does not use ROS ROS ED Constitutional Constitutional ED: Reports fever(s), subjective and sweats; Denies chills Eyes Eyes: Denies blurry vision or change in vision ENT ENT ED: Denies rhinorrhea or sore throat Cardiovascular Cardiovascular: Denies chest pain or palpitations Respiratory/Chest Respiratory/Chest: Denies cough or dyspnea Gastrointestinal Gastrointestinal: Reports abdominal pain, nausea and vomiting Genitourinary Genitourinary ED: Denies dysuria or hematuria Musculoskeletal Musculoskeletal: Reports back pain; Denies neck pain Integumentary Denies abscess or rash Neurologic Neurologic: Denies headache(s) or weakness Allergic/Immunologic Allergic/Immunologic ED: Denies mouth swelling or urticaria EXAM Physical Exam Const Vital Signs: 03/27/22 09:03 Temperature 96.7 F L Temperature Source Temporal Pulse Rate 116 H Respiratory Rate 16 Blood Pressure 113/46 L Blood Pressure Mean 68 Pulse Ox 98 Oxygen Delivery Method Room Air Positive well nourished and well developed General Appearance ED: well developed and NAD HEENT Reports moist mucous membranes Neck supple and no JVD Resp normal respiratory effort and clear to auscultation bilaterally Cardio regular rate, regular rhythm and no murmurs GI normal to inspection, nondistended, normoactive bowel sounds Palpation: soft and tender LLQ and LUQ; Negative for guarding or rebound tenderness present Back/Spine General Back: CVA tenderness left Extremity normal to inspection General Extremety ED: Negative for edema or tenderness General Extremity: Negative for edema Neuro oriented x3, CN's II-XII intact bilaterally and no sensory deficits noted Sensorium / Orientation: alert Motor Exam: strength 5/5 throughout Psych mental status grossly normal Skin no rashes or lesions noted MDM MDM MDM Narrative Medical decision making narrative: Patient was given IV fluids, morphine, and Zofran. CBC was within normal limits. Comprehensive metabolic profile was within normal limits. Lipase was normal. Urinalysis shows a leukocyte esterases of 100 with 0-5 white blood cells. There were 10-[address] scan of the abdomen pelvis was obtained. There is no evidence of ureteral lithiasis or hydronephrosis or hydroureter. There is a large amount of retained stool in the colon. There is no acute process noted. This was interpreted by the radiologist and reviewed by myself. Patient was feeling better on reevaluation. Patient was advised of her findings. Patient was instructed to use [id number] laxatives to help with the constipation. Patient was instructed to eat a high- fiber diet. Patient was instructed to follow-up with her primary care physician in 5 to 7 days. Patient understood and was agreeable with the plan. All questions were answered. Lab Data Attestation: I reviewed the patient's lab results. Labs: Laboratory Results - last 24 hr 03/27/22 03/27/22 03/27/22 09:45 10:30 10:30 WBC 6.3 RBC 4.76 Hgb 13.2 Hct 39.4 MCV 82.8 MCH 27.7 MCHC 33.5 RDW Std Deviation 41.1 RDW Coeff of Mariella 13.6 Plt Count 266 MPV 9.8 Immature Gran % (Auto) 0.200 Neut % (Auto) 67.3 Lymph % (Auto) 22.8 Whiteside % (Auto) 6.9 Eos % (Auto) 2.2 Baso % (Auto) 0.6 Absolute Neuts (auto) 4.2 Absolute Lymphs (auto) 1.43 Nucleated RBC % 0 Sodium 139 Potassium 3.5 Chloride 110 H Carbon Dioxide 22.0 Anion Gap 7 BUN 15 Creatinine 0.72 Estim Creat Clear Calc 87.90 Est GFR (MDRD) Af Amer 119 Est GFR (MDRD) Non-Af 98 BUN/Creatinine Ratio 20.7 H Glucose 95 Calcium 8.7 Total Bilirubin 0.30 AST 14 L ALT 23 Alkaline Phosphatase 78 Total Protein 7.2 Albumin 3.8 Globulin 3.4 Albumin/Globulin Ratio 1.1 Lipase 286 Serum , Qual Urine Color Yellow Urine Clarity Sl. Cloudy Urine pH 6.0 Ur Specific [place] 1.020 Urine Protein 30 H Urine Glucose (UA) Normal Urine Ketones 5 H Urine Occult Blood 50 H Urine Nitrite Negative Urine Bilirubin 3 H Urine Urobilinogen 1 H Ur Leukocyte Esterase 100 H Urine RBC 0 SEEN Urine WBC 0-5 SEEN Ur Squamous Epith Cells 10-25 SEEN Urine Bacteria 1+ Urine Mucus 0 SEEN 03/27/22 10:30 WBC RBC Hgb Hct MCV MCH MCHC RDW Std Deviation RDW Coeff of Mariella Plt Count MPV Immature Gran % (Auto) Neut % (Auto) Lymph % (Auto) Whiteside % (Auto) Eos % (Auto) Baso % (Auto) Absolute Neuts (auto) Absolute Lymphs (auto) Nucleated RBC % Sodium Potassium Chloride Carbon Dioxide Anion Gap BUN Creatinine Estim Creat Clear Calc Est GFR (MDRD) Af Amer Est GFR (MDRD) Non-Af BUN/Creatinine Ratio Glucose Calcium Total Bilirubin AST ALT Alkaline Phosphatase Total Protein Albumin Globulin Albumin/Globulin Ratio Lipase Serum , Qual NEGATIVE Urine Color Urine Clarity Urine pH Ur Specific [place] Urine Protein Urine Glucose (UA) Urine Ketones Urine Occult Blood Urine Nitrite Urine Bilirubin Urine Urobilinogen Ur Leukocyte Esterase Urine RBC Urine WBC Ur Squamous Epith Cells Urine Bacteria Urine Mucus Radiography Diagnostic Testing: Clinical Impression(s) from Imaging Studies Abdomen/Pelvis CT 03/27/22 09:36 IMPRESSION: 1. No acute process of the abdomen and pelvis. 2. Large amount retained stool in the colon 3. No free air or free fluid or bowel dilatation or obstruction. Electronically Signed: Patrick Quiroz MD at 11:57 EST Reading Location ID and State: [address] [place] [address] , Service support , Discharge Plan Triage Chief Complaint: Abd Pain ED Provider: Jhon Priest Dx/Rx/DC Orders Clinical Impression: Abdominal pain, Constipation Instructions: ED Constipation (Adult), ED Abdominal Pain Unkn Cause Male... Prescriptions: No Action zonisamide 100 capsule 200 mg PO 0800 Label Comments: seizures lorazepam 1 MG tablet 1 mg PO DAILY PRN PRN (Reason: Seizure) Label Comments: seizures zonisamide 100 MG capsule 300 mg PO QHS Label Comments: seizures ropinirole 0.5 MG tablet 1 mg PO QHS oxcarbazepine 150 mg tablet 150 mg PO QHS Mirena 20 mcg/24 hours (6 yrs) 52 mg Intrauterine Device 20 mcg INTRAUTERINE UD Label Comments: already placed lamotrigine 200 mg tablet extended release 24hr 100 mg PO 0800 Label Comments: take 1 tablet by mouth once daily lamotrigine 250 mg tablet extended release 24hr 250 mg PO QHS Label Comments: take 1 tablet by mouth once daily at bedtime ferrous sulfate [iron] 325 mg (65 mg iron) Tablet 325 mg PO DAILY Eliquis 5 mg tablet 5 mg PO BID Label Comments: TAKE 2 TABLETS BY MOUTH TWICE DAILY FOR 7 DAYS, THEN TAKE 1 TABLET TWICE DAILY escitalopram oxalate [Lexapro] 10 mg Tablet 10 mg PO QHS Ultomiris Rx Instructions: q 8 weeks Primary Care Provider: Donna Perdomo Referrals: Donna Perdomo MD [Primary Care Provider] - 3-5 Days Disposition Disposition: Home, Self Care What to do if you have Problems For any increased pain, shortness of breath, bleeding, nausea or vomiting, chest pain, or any unexpected problems, contact your Primary Care Provider. Call [facility] ([phone]) or report to the closest Emergency Room. Call 911 if necessary. 03/27/22 164 <Electronically signed by Jhon Priest DO> Cosigner Signature (if applicable): CC: Dr. Donna Perdomo MD Signed Dylan Velarde Work Phone: Start: 02-05-2022 End: 02-05-2022 Emergency Department Summary Procedure Note: See Note; NOTES: [facility] Medical Records Department [address] [place] [id number] Emergency Department Summary 02/05/22 MR#: [id number] Acct: [id number] Name: DOUG FLANAGAN Rep #: [id number] : 1990 31 From: Kojo Lewis DO PCP: Dr. Donna Perdomo MD Status:REG ER Location: ED HPI History of Present Illness Chief Complaint: Seizure Narrative Narrative: 31-year-old female presenting after seizure episodes at home. She has a history of epilepsy in the past. She is on zonisamide for this. She also has as needed lorazepam and oxcarbazepine. Patient also has history of myasthenia gravis and sees started recently on Apurva 27 on Ultomiris for this. She had initial loading dose. She had the second dose of this today which is the bigger dose. This was at about 11:30 AM today. The patient's mother reports that she noted her to be twitching. She had a grand mal seizure at about and she was given intranasal diazepam by her mother. She had a second 1 at about 3:00. Each of these last about a minute. Mother reports that she had another one as EMS was getting her. She was given a dose of diazepam again. On arrival to the ER she is awake and alert and talking. She states she has a headache. States that her legs hurt. Patient does state that her Ultomiris is supposed to help with her seizures as well. Mother does report that her seizure episodes although they lasted a minute she came back to baseline rather quickly and was alert and oriented within a minute or so [facility] Medical History Anemia Chest pain Difficulty chewing Difficulty swallowing History of stress test Hx of peripheral vascular disease Injury of head and neck Leg cramps Migraine headache Myasthenia gravis Non-smoker Normal echocardiogram ( 05/18/16) Seizures Shortness of breath on exertion Home Medications zonisamide 100 mg capsule 200 mg PO 0800 seizures 12/23/17 [History Last Taken 10/17/21] lorazepam 1 mg tablet 1 mg PO DAILY PRN PRN Seizure 01/07/18 [History Last Taken 05/03/18] zonisamide 100 mg capsule 300 mg PO QHS seizures 03/26/19 [History Last Taken 11/01/20 20:00] ropinirole 0.5 mg tablet 1 mg PO QHS spasms 10/06/19 [History Last Taken 11/01/20 20:00] lamotrigine 200 mg tablet,extended release 24 hr 100 mg PO 0800 seizures 10/14/20 [History Last Taken 10/17/21] lamotrigine 250 mg tablet,extended release 24 hr 250 mg PO QHS seizures 10/14/20 [History Last Taken 11/01/20 20:00] levonorgestrel 20 mcg/24 hours (8 yrs) 52 mg intrauterine device (Mirena) 20 mcg intrauterine UD control 10/14/20 [History Last Taken Unknown] oxcarbazepine 150 mg tablet 150 mg PO QHS SEIZURES 10/14/20 [History Last Taken 11/01/20 20:00] apixaban 5 mg tablet (Eliquis) 5 mg PO BID blood clot 11/02/20 [History Last Taken 10/13/21] ferrous sulfate 325 mg (65 mg iron) tablet (iron) 325 mg PO DAILY anemia 11/02/20 [History Last Taken 11/01/20 08:00] escitalopram oxalate 10 mg tablet (Lexapro) 10 mg PO QHS 10/09/21 [History Last Taken Unknown] oxycodone-acetaminophen 5 mg-325 mg tablet (Percocet) 1 tab PO Q6H PRN pain 7 days #5 tabs 10/17/21 [Rx Last Taken Unknown] Ultomiris 02/05/22 [History Last Taken Unknown] Allergy/AdvReac Type Severity Reaction Status Date / Time levetiracetam [From Keppra] Allergy Other Verified 02/05/22 15:22 Penicillins Allergy Rash Verified 02/05/22 15:22 phenytoin [From Dilantin] Allergy PT UNSURE Verified 02/05/22 15:22 OF REACTION prochlorperazine Allergy Other Verified 02/05/22 15:22 [From Compazine] shellfish derived Allergy Other Verified 02/05/22 15:22 soy AdvReac NEEDS Verified 02/05/22 15:22 FOLLOW-UP Surgical History Hx of appendectomy Hx of thymectomy Hx of total hip arthroplasty Social History household members: spouse Smoking Status: Never smoker second hand exposure: Yes alcohol intake: never substance use type: does not use ROS ROS ED Constitutional Constitutional ED: Denies chills or fever(s) Eyes Eyes: Denies change in vision ENT ENT ED: Denies rhinorrhea or sore throat Cardiovascular Cardiovascular: Denies chest pain or palpitations Respiratory/Chest Respiratory/Chest: Denies cough or dyspnea Gastrointestinal Gastrointestinal: Denies abdominal pain Genitourinary Genitourinary ED: Denies dysuria or hematuria Musculoskeletal Musculoskeletal: Denies arthralgias or back pain Integumentary Denies abscess Neurologic Neurologic: Reports headache(s) and other Details: 3 seizures today, shakiness EXAM Physical Exam Const Vital Signs: 02/05/22 15:17 02/05/22 15:46 Temperature 98.8 F Temperature Source Temporal Pulse Rate 116 H 102 H Respiratory Rate 18 20 H Blood Pressure 98/59 L 118/81 H Blood Pressure Mean 72 93 Pulse Ox 98 96 Oxygen Delivery Method Room Air Room Air Positive well nourished General Appearance ED: NAD; Negative for pallor HEENT Reports moist mucous membranes Eyes PERRL and EOMs intact bilaterally Chest Wall inspection of chest normal Resp normal respiratory effort and clear to auscultation bilaterally Cardio regular rate and regular rhythm GI normal to inspection, nondistended, normoactive bowel sounds Neuro oriented x3 and CN's II-XII intact bilaterally Sensorium / Orientation: alert Motor Exam: strength 5/5 throughout Psych mental status grossly normal Skin no rashes or lesions noted and no wounds General Skin Exam: Negative for jaundice or pallor MDM MDM MDM Narrative Medical decision making narrative: Patient seen and evaluated on arrival. Vital signs are stable she is afebrile. She is awake and alert and talking. She states she has a mild headache and her legs are hurting her. Did not find any evidence of trauma. She has no focal neurologic deficits on examination. Patient is given IV fluids. CBC and CMP are unremarkable except for a potassium of 3.3. Serum negative. LFTs are normal. CT brain normal. I spoke with Dr. Gilmore her neurologist and I discussed the case with him. 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 He did not want to change any medications. He states that she can go home and follow-up with him as an outpatient. She has not had a repeat seizure here. Patient will be discharged home in stable condition. Impression: 1. Hypokalemia 2. Breakthrough seizure Lab Data Attestation: I reviewed the patient's lab results. Labs: Laboratory Results - last 24 hr 02/05/22 02/05/22 02/05/22 16:30 16:30 16:30 WBC 9.1 RBC 4.62 Hgb 12.5 Hct 38.6 MCV 83.5 MCH 27.1 MCHC 32.4 RDW Std Deviation 41.1 RDW Coeff of Mariella 13.5 Plt Count 270 MPV 9.4 Immature Gran % (Auto) 0.200 Neut % (Auto) 69.1 Lymph % (Auto) 23.0 Whiteside % (Auto) 5.9 Eos % (Auto) 1.4 Baso % (Auto) 0.4 Absolute Neuts (auto) 6.3 Absolute Lymphs (auto) 2.08 Nucleated RBC % 0 Sodium 140 Potassium 3.3 L Chloride 110 H Carbon Dioxide 22.0 Anion Gap 8 BUN 11 Creatinine 0.68 Estim Creat Clear Calc 93.07 Est GFR (MDRD) Af Amer 129 Est GFR (MDRD) Non-Af 107 BUN/Creatinine Ratio 16.3 Glucose 91 Calcium 9.1 Magnesium 2.0 Total Bilirubin 0.20 AST 12 L ALT 16 Alkaline Phosphatase 101 Total Protein 7.4 Albumin 3.7 Globulin 3.7 Albumin/Globulin Ratio 1.0 HCG, Quant < 1 Radiography Diagnostic Testing: Clinical Impression(s) from Imaging Studies Brain CT 02/05/22 15:44 IMPRESSION: Normal unenhanced CT scan of the brain. Electronically Signed: Tessie Peacock MD at 17:38 EDT Reading Location ID and State: [id number] / Tel , Service support , Discharge Plan Triage Chief Complaint: Seizure ED Provider: Kojo Lewis Dx/Rx/DC Orders Instructions: ED Seizure, Recurrent (Adult) Prescriptions: No Action zonisamide 100 capsule 200 mg PO 0800 Label Comments: seizures lorazepam 1 MG tablet 1 mg PO DAILY PRN PRN (Reason: Seizure) Label Comments: seizures zonisamide 100 MG capsule 300 mg PO QHS Label Comments: seizures ropinirole 0.5 MG tablet 1 mg PO QHS oxcarbazepine 150 mg tablet 150 mg PO QHS Mirena 20 mcg/24 hours (6 yrs) 52 mg Intrauterine Device 20 mcg INTRAUTERINE UD Label Comments: already placed lamotrigine 200 mg tablet extended release 24hr 100 mg PO 0800 Label Comments: take 1 tablet by mouth once daily lamotrigine 250 mg tablet extended release 24hr 250 mg PO QHS Label Comments: take 1 tablet by mouth once daily at bedtime ferrous sulfate [iron] 325 mg (65 mg iron) Tablet 325 mg PO DAILY Eliquis 5 mg tablet 5 mg PO BID Label Comments: TAKE 2 TABLETS BY MOUTH TWICE DAILY FOR 7 DAYS, THEN TAKE 1 TABLET TWICE DAILY escitalopram oxalate [Lexapro] 10 mg Tablet 10 mg PO QHS oxycodone-acetaminophen [Percocet] 5-325 mg tablet 1 tab PO Q6H PRN (Reason: pain) 7 Days Qty: 5 0RF Ultomiris Primary Care Provider: Donna Perdomo Referrals: Donna Perdomo MD [Primary Care Provider] - Disposition Disposition: Home, Self Care What to do if you have Problems For any increased pain, shortness of breath, bleeding, nausea or vomiting, chest pain, or any unexpected problems, contact your Primary Care Provider. Call [facility] ([phone]) or report to the closest Emergency Room. Call 911 if necessary. 02/05/22 [id number] <Electronically signed by Kojo Lewis DO> Cosigner Signature (if applicable): CC: Dr. Donna Perdomo MD Signed Dylan Velarde Work Phone: Start: 02-05-2022 End: 02-05-2022 Brain/Head without Contrast Procedure Note: See Note; NOTES: [facility] Imaging Services [address] [place] [address] Brain/Head without Contrast MR#: [id number] Acct: [id number] Name: DOUG FLANAGAN Rep #: [id number] : 1990 F 31 From: Tessie roberts MD PCP: Dr. Donna Perdomo MD Status: [facility] ER Study: Brain/Head without Contrast Date of Exam: 10/22 Exam# [id number] Ordering Dr: Kojo Lewis DO STUDY: CT BRAIN WITHOUT CONTRAST REASON FOR EXAM: Female, 31 years old. headache RADIATION DOSAGE (If Supplied By Facility): CTDIvol = ( 44.99 ) mGy, DLP = ( 796.11 ) mGycm TECHNIQUE: Transaxial CT imaging of the brain was performed without administration of intravenous contrast material. Individualized dose optimization techniques were used for this CT. COMPARISON: No relevant priors. FINDINGS: Normal soft tissue structures. Normal calvarium. Normal size ventricles and extra-axial spaces for the patient''s age. Normal white matter tracts of the cerebral hemispheres. Normal basal ganglia and thalami. Normal brainstem. Normal cerebellum. There is no intracranial hemorrhage. There are no findings of an acute ischemic infarction. Normal visualized paranasal sinuses. CT/Brain/Head without Contrast IMPRESSION: Normal unenhanced CT scan of the brain. Electronically Signed: Tessie Peacock MD at 17:38 EDT Reading Location ID and State: [id number] / Tel , Service support , CC: Dr. Donna Perdomo MD; Dr. Kojo Lewis DO Hosiery Mater: Signed Dylan Velarde Work Phone: Start: 02-05-2022 CT of head without contrast Dr. Donna Perdomo Work Phone: Start: 01-12-2022 End: 01-12-2022 Chest 1 View (Portable) Procedure Note: See Note; NOTES: [facility] Imaging Services [address] [place] [address] Chest 1 View (Portable) MR#: [id number] Acct: [id number] Name: DOUG FLANAGAN Rep #: [id number] : 1990 F 31 From: Chuy Farias DO PCP: Dr. Donna Perdomo MD Status: REG ER Study: Chest 1 View (Portable) Date of Exam: 01/12/22 Exam# [id number] Ordering Dr: Kojo Lewis DO STUDY: X-RAY CHEST REASON FOR EXAM: Female, 31 years old. chest pain TECHNIQUE: Single AP portable view of the chest. COMPARISON: 08/15/2021 FINDINGS: Stable right chest wall Mediport The lungs are clear and expanded. There is no demonstrated pleural abnormality. Normal size heart. Normal mediastinum and shima. Normal visualized pulmonary arteries. Normal visualized aortic arch and descending thoracic aorta. Normal visualized thoracic spine. Normal visualized ribs, clavicles, and shoulders. There is no demonstrated abnormality of the visualized soft tissue structures of the upper abdomen. RAD/Chest 1 View (Portable) IMPRESSION: Normal x-ray examination of the chest. Electronically Signed: Chuy Farias DO at 22:36 EDT , CC: Dr. Donna Perdomo MD; Dr. Kojo Lewis DO Hosiery Mater: Signed Dylan Velarde Work Phone: Start: 01-12-2022 Plain chest X-ray Dr. Donna Perdomo Work Phone: Start: 01-12-2022 End: 01-13-2022 Emergency Department Summary Procedure Note: See Note; NOTES: [facility] Medical Records Department [address] [place] [id number] Emergency Department Summary 01/12/22 MR#: [id number] Acct: [id number] Name: DOUG FLANAGAN Rep #: [id number] : 1990 31 From: Kojo Lewis DO PCP: Dr. Donna Perdomo MD Status:REG ER Location: ED HPI History of Present Illness Chief Complaint: Chest Pain Narrative Narrative: 31-year-old female with history of epilepsy, myasthenia gravis, migraine presenting with headache and chest pain. She states that she was recently placed on Lexapro 20 mg due to increasing anxiety. She states that immediately after started taking 20 mg she started to have the symptoms. She states it makes her sleepy. She states that sometimes she feels jolts throughout her entire body. She states her headache hurts behind her eyes. It hurts whether her eyes are closed or open. She does admit to light sensitivity and sound sensitivity. She is not had fever or chills. Patient anticoagulated on Eliquis due to history of blood clots. [facility] Medical History Anemia Chest pain Difficulty chewing Difficulty swallowing History of stress test Hx of peripheral vascular disease Injury of head and neck Leg cramps Migraine headache Myasthenia gravis Non-smoker Normal echocardiogram ( 05/18/16) Seizures Shortness of breath on exertion Home Medications zonisamide 100 mg capsule 200 mg PO 0800 seizures 12/23/17 [History Last Taken 10/17/21] lorazepam 1 mg tablet 1 mg PO DAILY PRN PRN Seizure 01/07/18 [History Last Taken 05/03/18] zonisamide 100 mg capsule 300 mg PO QHS seizures 03/26/19 [History Last Taken 11/01/20 20:00] ropinirole 0.5 mg tablet 1 mg PO QHS spasms 10/06/19 [History Last Taken 11/01/20 20:00] eculizumab 300 mg/30 mL intravenous solution (Soliris) 1,200 mg IV .QOWEEK myasthenia gravis 10/14/20 [History Last Taken 10/29/20 08:00] lamotrigine 200 mg tablet,extended release 24 hr 100 mg PO 0800 seizures 10/14/20 [History Last Taken 10/17/21] lamotrigine 250 mg tablet,extended release 24 hr 250 mg PO QHS seizures 10/14/20 [History Last Taken 11/01/20 20:00] levonorgestrel 20 mcg/24 hours (7 yrs) 52 mg intrauterine device (Mirena) 20 mcg intrauterine UD control 10/14/20 [History Last Taken Unknown] oxcarbazepine 150 mg tablet 150 mg PO QHS SEIZURES 10/14/20 [History Last Taken 11/01/20 20:00] apixaban 5 mg tablet (Eliquis) 5 mg PO BID blood clot 11/02/20 [History Last Taken 10/13/21] ferrous sulfate 325 mg (65 mg iron) tablet (iron) 325 mg PO DAILY anemia 11/02/20 [History Last Taken 11/01/20 08:00] escitalopram oxalate 10 mg tablet (Lexapro) 10 mg PO QHS 10/09/21 [History Last Taken Unknown] oxycodone-acetaminophen 5 mg-325 mg tablet (Percocet) 1 tab PO Q6H PRN pain 7 days #5 tabs 10/17/21 [Rx Last Taken Unknown] Allergy/AdvReac Type Severity Reaction Status Date / Time levetiracetam [From Keppra] Allergy Other Verified 10/17/21 10:39 Penicillins Allergy Rash Verified 10/17/21 10:39 phenytoin [From Dilantin] Allergy PT UNSURE Verified 10/17/21 10:39 OF REACTION shellfish derived Allergy Other Verified 10/17/21 10:39 soy AdvReac NEEDS Verified 10/17/21 10:39 FOLLOW-UP Surgical History Hx of appendectomy Hx of thymectomy Hx of total hip arthroplasty Social History household members: spouse Smoking Status: Never smoker second hand exposure: Yes alcohol intake: never substance use type: does not use ROS ROS ED Eyes Eyes: Denies blurry vision or change in vision ENT ENT ED: Denies rhinorrhea or sore throat Cardiovascular Cardiovascular: Reports as per HPI Respiratory/Chest Respiratory/Chest: Denies cough or dyspnea Gastrointestinal Gastrointestinal: Denies abdominal pain or constipation Genitourinary Genitourinary ED: Denies dysuria or hematuria Musculoskeletal Musculoskeletal: Denies arthralgias or back pain Integumentary Denies abscess Neurologic Neurologic: Reports headache(s) Psychiatric Psychiatric: Reports anxiety; Denies depression EXAM Physical Exam Const Vital Signs: 01/12/22 21:05 01/12/22 21:09 01/12/22 23:30 Temperature 98.8 F Temperature Source Temporal Pulse Rate 98 88 Respiratory Rate 14 17 Respiratory Effort Normal Blood Pressure 119/76 Blood Pressure Mean 90 Pulse Ox 97 97 Oxygen Delivery Method Room Air Room Air Positive well nourished General Appearance ED: NAD; Negative for pallor HEENT Reports TM's clear and moist mucous membranes normocephalic Tympanic Membrane ED: Yes TM's clear Eyes PERRL General Eye ED: Negative for pale conjunctiva or scleral icterus Chest Wall inspection of chest normal Resp normal respiratory effort Effort and Inspection: respiratory distress Auscultation: Negative for rales, rhonchi or wheezes Cardio regular rate and regular rhythm GI normal to inspection, nondistended, normoactive bowel sounds Neuro oriented x3 and CN's II-XII intact bilaterally Sensorium / Orientation: awake Psych mental status grossly normal Skin no rashes or lesions noted and no wounds General Skin Exam: Negative for jaundice or pallor Heart Score History: Slightly/Non-Suspicious ECG: Normal Age: </= 45 years Risk Factors: No Risk Factors Troponin: </= Normal Limit Score: 0 MDM MDM MDM Narrative Medical decision making narrative: Patient presenting with multiple symptoms which are likely side effect of starting her new medication at a higher dose. She does complain of headache and feeling of jolts in her body. He does have a history of migraine. She has not had any seizures. No fevers or chills. I did obtain blood work and her CBC and CMP are unremarkable. High-sensitivity troponin is 3. EKG on my interpretation is sinus rhythm with a ventricular rate of 90 bpm without sign of ischemic change. Chest x-ray on my interpretation shows no acute cardiopulmonary process. Patient was treated with Compazine and Benadryl and states she still had mild headache on reevaluation. She was given Toradol. She states that on reevaluation she is having side effects to the Compazine was really seems to be like restless legs. This may also be the Benadryl. I recommended to her that she talk to her primary care provider regarding medication changes for her anxiety. I do not believe needs other work-up or imaging. Impression: 1 chest pain noncardiac 2. Headache 3. Medication side effect Lab Data Attestation: I reviewed the patient's lab results. Labs: Laboratory Results - last 24 hr 01/12/22 01/12/22 22:48 22:48 WBC 10.4 RBC 4.54 Hgb 12.2 Hct 38.9 MCV 85.7 MCH 26.9 L MCHC 31.4 L RDW Std Deviation 41.2 RDW Coeff of Mariella 13.2 Plt Count 283 MPV 9.5 Immature Gran % (Auto) 0.300 Neut % (Auto) 69.8 Lymph % (Auto) 21.4 Whiteside % (Auto) 6.7 Eos % (Auto) 1.3 Baso % (Auto) 0.5 Absolute Neuts (auto) 7.3 Absolute Lymphs (auto) 2.23 Nucleated RBC % 0 Sodium 141 Potassium 3.6 Chloride 111 H Carbon Dioxide 22.0 Anion Gap 8 BUN 12 Creatinine 0.72 Estim Creat Clear Calc 87.90 Est GFR (MDRD) Af Amer 119 Est GFR (MDRD) Non-Af 98 BUN/Creatinine Ratio 16.6 Glucose 93 Calcium 8.9 Total Bilirubin 0.20 AST 15 ALT 24 Alkaline Phosphatase 102 Troponin I High Sens 3 Total Protein 7.1 Albumin 3.6 Globulin 3.5 Albumin/Globulin Ratio 1.0 Radiography Diagnostic Testing: Clinical Impression(s) from Imaging Studies Chest X-Ray 01/12/22 22:25 IMPRESSION: Normal x-ray examination of the chest. Electronically Signed: Chuy Farias DO at 22:36 EDT , Discharge Plan Triage Chief Complaint: Chest Pain ED Provider: Kojo Lewis Dx/Rx/DC Orders Instructions: Self-Care for Headaches, ED Chest Pain, Noncardiac, ED Drug Reaction, Other Prescriptions: No Action zonisamide 100 capsule 200 mg PO 0800 Label Comments: seizures lorazepam 1 MG tablet 1 mg PO DAILY PRN PRN (Reason: Seizure) Label Comments: seizures zonisamide 100 MG capsule 300 mg PO QHS Label Comments: seizures ropinirole 0.5 MG tablet 1 mg PO QHS oxcarbazepine 150 mg tablet 150 mg PO QHS Mirena 20 mcg/24 hours (6 yrs) 52 mg Intrauterine Device 20 mcg INTRAUTERINE UD Label Comments: already placed Soliris 300 mg/30 mL Solution 1,200 mg IV .QOWEEK lamotrigine 200 mg tablet extended release 24hr 100 mg PO 0800 Label Comments: take 1 tablet by mouth once daily lamotrigine 250 mg tablet extended release 24hr 250 mg PO QHS Label Comments: take 1 tablet by mouth once daily at bedtime ferrous sulfate [iron] 325 mg (65 mg iron) Tablet 325 mg PO DAILY Eliquis 5 mg tablet 5 mg PO BID Label Comments: TAKE 2 TABLETS BY MOUTH TWICE DAILY FOR 7 DAYS, THEN TAKE 1 TABLET TWICE DAILY escitalopram oxalate [Lexapro] 10 mg Tablet 10 mg PO QHS oxycodone-acetaminophen [Percocet] 5-325 mg tablet 1 tab PO Q6H PRN (Reason: pain) 7 Days Qty: 5 0RF Primary Care Provider: Donna Perdomo Referrals: Donna Perdomo MD [Primary Care Provider] - Disposition Disposition: Home, Self Care What to do if you have Problems For any increased pain, shortness of breath, bleeding, nausea or vomiting, chest pain, or any unexpected problems, contact your Primary Care Provider. Call [facility] ([phone]) or report to the closest Emergency Room. Call 911 if necessary. 01/13/22 0027 <Electronically signed by Kojo Lewis DO> Cosigner Signature (if applicable): CC: Dr. Donna Perdomo MD Signed Dylan Velarde Work Phone: Start: 01-12-2022 End: 01-13-2022 12 Lead EKG Procedure Note: See Note; NOTES: [facility] Cardiovascular Services [address] [place] [address] 12 Lead EKG 01/12/222107 MR#: [id number] Acct: [id number] Name: DOUG FLANAGAN Rep #: [id number] : 1990 31 From: Zina Randhawa MD Attending Dr: Status: DEP ER Ordering Dr: Provider,Ed P. Date: 01/12/22 Location: ED Sex: F C Admitted: Test Reason : CP Blood Pressure : / mmHG Vent. Rate : 098 BPM Atrial Rate : 098 BPM P-R Int : 172 ms QRS Dur : 076 ms QT Int : 354 ms P-R-T Axes : 043 -11 080 degrees QTc Int : 451 ms Normal sinus rhythm Nonspecific T wave abnormality Abnormal ECG Confirmed by JEREMI SALGADO, ZINA ([id number]), editorial project manager SALOME MENJIVAR ([id number]) on 01/13/2022 9:24:39 AM Referred By: TL Confirmed By:ZINA RANDHAWA MD 01/13/22 0924 Date Zina Randhawa MD CC: Dr. Donna Perdomo MD; Dr. Kojo Lewis DO; ED PHYSICIAN PROVIDER Signed Dylan Velarde Work Phone: Start: 12-22-2021 Urnls dip stick/tablet rgnt auto w/o microscopy Louise Soriano CUSTOMER SALES REPRESENTATIVE.[facility] Work Phone: Start: 12-22-2021 Radex ribs uni w/posteroant ch minimum 3 views Louiseaime Soriano CUSTOMER SALES REPRESENTATIVE.[facility] Work Phone: Start: 12-01-2021 Dup-scan xtr veins unilateral/limited study Maya Puente CUSTOMER SALES REPRESENTATIVE.[facility] Work Phone: Start: 12-01-2021 Radex foot complete minimum 3 views Maya Puente CUSTOMER SALES REPRESENTATIVE.[facility] Work Phone: Start: 10-17-2021 End: 10-17-2021 Operative Report Comments: See Note; NOTES: [facility] Medical Records Department [address] [place] [address] Operative Report 10/17/21 1225 MR#: [id number] Acct: [id number] Name: DUOG FLANAGAN Rep #: [id number] : 1990 31 From: Sarah Pop DO PCP: Dr. Donna Perdomo MD Status:[facility] Location: [place] [address] Problems Associated Problem List Diagnoses (1) LLOYD II (cervical intraepithelial neoplasia II): Report of Operation Date of Procedure: 10/17/21 Pre-Operative Diagnosis: CIN2, positive ECC, menorrhagia with desire for progesterone IUD Post-Operative Diagnosis: As above Surgery/Procedure Performed:: Cervical CKC with ECC, Paragard IUD removal, Mirena IUD placement Description of Surgical Findings:: Minimal descent of cervix and uterus. Uterus retroverted and sounded to 7.5 cm. No significant changes noted with Lugol solution. Surgeon: Sarah Pop client delivery manager: None Type of Anesthesia: MAC Special Medications: None Specimen's removed: Cervical biopsy - anterior lip and posterior lip Endocervical curetting Drains: None Estimated Blood Loss (mL): < 50 cc Fluids Replaced: 700 cc Description of Procedure: Patient was taken back to the operating room where MAC anesthesia was found to be adequate. She was prepped and draped in the dorsal lithotomy position using yellowfin stirrups. A weighted speculum was placed in the vagina to expose the cervix. The anterior lip of the cervix was grasped with a single-tooth tenaculum. The IUD strings were grasped with a ring forcep, and using gentle traction the Paragard IUD was removed easily and intact. Using 0 Vicryl stay sutures were placed at the 3 o'clock and 9 o'clock positions for hemostasis. Lugol solution was placed over the cervix. 10 cc of 1% lidocaine with epinephrine was injected into cervix. Using an 11 blade a circumferential incision was made in the cervix. Next curved Palomares scissors were used to remove the cone biopsy. The cone biopsy was removed in 2 pieces, the anterior lip and the posterior lip. The cone biopsy was sent to pathology for review. An endocervical curetting was performed and this was sent to pathology for review. The uterus was sounded to 7.5 cm in length. The Mirena device was set, and Mirena IUD was placed in usual fashion in the uterus. The IUD strings were trimmed to 2 cm in length. The cervical bed was cauterized using a roller blade. Monsel solution was placed. The stay sutures were trimmed. Bleeding was hemostatic. All instruments were removed from the vagina. Instrument, needle, sponge count were correct. The patient was taken to the recovery room in stable condition. Grafts/Implants Used: Mirena IUD Procedure Start Time: 12:02 Procedure Stop Time: 12:21 Complications None Admit VTE Documentation VTE Present on Admission: No VTE Mechan Device Prophylaxis: SCD's 10/17/21 1258 <Electronically signed by Sarah Pop DO> Cosigner Signature (if applicable): CC: Dr. Donna Perdomo MD; Dr. Sarah Pop DO Signed Dylan Velarde Work Phone: Start: 10-17-2021 Dilation and curettage of uterus SHEET METAL WORK FURNACE INSTALLER-C Dylan Velarde SHEET METAL WORK FURNACE INSTALLER Work Phone: Start: 10-17-2021 End: 10-17-2021 Discharge Instruction Comments: See Note; NOTES: [facility] Medical Records Department [address] [place] [address] Instructions for Home/Discharge Instructions 10/17/21 1121 MR#: [id number] Acct: [id number] Name: DOUG FLANAGAN Rep #: [id number] : 1990 31 From: Sarah Pop DO PCP: Dr. Donna Perdomo MD Status:REG [facility] [place] Discharge Instructions Diet Discharge Diet: No restrictions Activity Discharge Activity: May Drive (once you are at least 24 hours out from surgery) Return to work on:: 10/20/21 May resume sexual activity in: 4 weeks (No tampons, intercourse, hot tubs, baths, or pools for one month) Weight Bearing Status: Weight bearing as tolerated Dressing / Incision Call your doctor if you observe: Fever of 101 or Higher, Coldness, Increased Pain, Numbness or Tingling, Change in Color, Inability to urinate, Inability to have a bowel movement, Using more than 1 pad per hour, Shortness of breath, Dizziness, Fainting spells, Swelling in the ankles, Chest pain, Increased palpitations (irregular heartbeat), Calf discomfort and Uncontrolled pain Follow Up Care Please Follow Up With: Sarah Pop DO When: 1 week post op check and discussion of pathology 4-6 weeks for IUD check Test Results: Test results from this visit will be discussed in further detail at your follow-up appointment, if applicable. Discharge Plan Admission Primary Reason for Your Visit: surgery Attending Provider: Sarah Pop Primary Care Provider: Donna Perdomo Discharge Orders/Prescriptions Prescriptions: Continued zonisamide 100 capsule 200 mg PO 0800 Label Comments: seizures lorazepam 1 MG tablet 1 mg PO DAILY PRN PRN (Reason: Seizure) Label Comments: seizures zonisamide 100 MG capsule 300 mg PO QHS Label Comments: seizures ropinirole 0.5 MG tablet 1 mg PO QHS oxcarbazepine 150 mg tablet 150 mg PO QHS Mirena 20 mcg/24 hours (6 yrs) 52 mg Intrauterine Device 20 mcg INTRAUTERINE UD Label Comments: already placed Soliris 300 mg/30 mL Solution 1,200 mg IV .QOWEEK lamotrigine 200 mg tablet extended release 24hr 100 mg PO 0800 Label Comments: take 1 tablet by mouth once daily lamotrigine 250 mg tablet extended release 24hr 250 mg PO QHS Label Comments: take 1 tablet by mouth once daily at bedtime ferrous sulfate [iron] 325 mg (65 mg iron) Tablet 325 mg PO DAILY Eliquis 5 mg tablet 5 mg PO BID Label Comments: TAKE 2 TABLETS BY MOUTH TWICE DAILY FOR 7 DAYS, THEN TAKE 1 TABLET TWICE DAILY escitalopram oxalate [Lexapro] 10 mg Tablet 10 mg PO QHS Referrals / Follow Up: Donna Perdomo MD [Primary Care Provider] - Disposition Disposition (needs filled in before D/C Order can be placed): Home, Self Care 10/17/21 1122<Electronically signed by Sarah Pop DO>Sarah Pop DO CC: Dr. Donna Perdomo MD Signed Dylan Velarde Work Phone: Start: 10-01-2021 End: 10-01-2021 Inital Evaluation (1) - PT Comments: See Note; NOTES: [facility] Physical Therapy [facility] [address] [place] [address]. [address] [place] [address] / REHABILITATION SERVICES INITIAL EVALUATION MR#: [id number] Acct: [id number] Name: DOUG FLANAGAN Rep #: [id number] : 1990 31 From: Jhon Ornelas DPT, KHRIS, CSCS Referring Dr.: Dr. Gerald Gilmore MD Status: REG R Insurance: [employer] Patient's Visit Information DOUG FLANAGAN is a 31 year old F referred to Physical Therapy by Dr. Gerald Gilmore MD with a diagnosis of falls , debility, myasthenia gravis.. Date of Evaluation: 10/01/21 Physical Therapist: Jhon Ornelas DPT, KHRIS, CSCS - Visit Plan Frequency: 3x /Week Duration: 4-6 Weeks Plan: 3x/week for 3-6 weeks for. 1. core strenght. 2. hip and LE strength. 3. postural strength. Work to home I iwth 5 and 10 # db, bodyweight and bands with pics please. Monitor tolerance to workout. - Subjective Myasthenia Gravis is what I have. Legs and arms have gotten weak and given out in last couple weeks. Last week mom had to take care of her and lift her off the toilet. Today she is walking fine. Just woke up fine a couple days ago. has had this since 2018. Now cannot do snowboarding or running like she used to do. Cannot do any of hobbies anymore. wants to be able to walk a mile without concern or problems. Is very weak. Legs will shake if she stands too long. See3s Dr. Gilmore and takes solaris every two weeks. Just took some yesterday. Has done that for a couple years. Got MRI of neck yesterday to see if problems in neck. Labs came back normal. Sees in two weeks. Gets pain when she is flared up her arms and legs hurt in the muscles. Sleeping : Ok sometimes but last week was bad as she could not turn over when in pain. Cannot grasp a sheet. 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 Not worked in a year. 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 Putting hair up wears arms out. Seizures: since 11(maybe bad concussion), on meds since 11. Lives alone but stays with parents when in flare. Has 3 steps at her house which are fatiguing. Exercises; wants to run but legs don't do that anymore. I walk [facility] or [employer] but cannot make it around sometimes. Yoga daily. - Objective Walks I into PT easily. [facility] chair with UE I today. Bed transfers show weakness in trunk and LE movements. Steps require UE assist but is able reciprocally. UE AROM is WFL and strength is 4- in shoulders, 4 in elbows and 3 in hands with difficulty with motor control in hands. Lumbar and cervical AROM WFL and without pain today. LE flexibility is hypermobile except gastroc which is min tight at 2 degrees DF. Hips are weak at 3+/5 in abd, flexion and extension, knees at 4/5 in flexion and extension. Ankle strength 4+/5. Core strength in abs 3- and back extensors 3. hypereflexic with clonus in patella and achilles. Sensation LE WNL to gross light touch. - Balance/Special Test Scores Functional Gait Assessment Score: 29 % Disability: 3.3400 Lower Extremity Functional Score: 31 30 Second Chair Rise Test Seconds: 14 - Goals Goal 1:: I appropriate home based ex with db and bands for core and LE and postural strength. Goal Time Frame: 4-6 Weeks Goal 2:: 18 30 sec sit to stand test. Goal Time Frame: 4-6 Weeks Goal 3:: pt feel 505 better in overall mobility without myasthenia gravis flare. Goal Time Frame: 4-6 Weeks - Rehabilitation Potential Physical Therapy Diagnosis: weakness and difficulty with activity. Rehabilitation Potential: Fair - Anticipated Interventions Patient/Client Instruction: Educate patient on: Condition, Plan of Care For the Purpose of:: To improve muscle performance and motor function, To improve ability of physical actions for home/community/work/leisur e, To improve gait and locomotor functions Therapeutic Exercise to Include: Strength training, Gait and locomotor training For the Purpose of:: To increase ROM, To improve muscle performance and motor function, To increase tolerance to activity/condition/positio n Thank you for the opportunity to evaluate your patient. For Medicare and Medicare HMO plans, please review the plan of care and approve it. It will need to be FAXED BACK to us at [phone] for Medicare purposes. For Medicare only, by signing this I certify the plan of care. Please let me know if there are questions or concerns regarding this plan of care. Physician Signature: Date: <Electronically signed by Jhon Ornelas DPT, OCS, CSCS> 10/01/21 2897 CC: SHEET METAL WORK FURNACE INSTALLERTracieC Dylan Velarde; Dr. Gerald Gilmore MD EBG Signed Dylan Velarde Work Phone: Start: 08-20-2021 Urine test visual color cmprsn buddys Sarah Pop MD Work Phone: Start: 08-15-2021 End: 08-15-2021 Venous Duplex US, Unilateral Comments: See Note; NOTES: [facility] Cardiovascular Services [address] [place] [address] Venous Duplex US, Unilateral 08/15/21 1132 MR#: [id number] Acct: [id number] Name: DOUG FLANAGAN Rep #: [id number] : 1990 31 From: Arley Jama MD Attending Dr: Status: DEP ER Ordering Dr: Tevin Loepz DO Date: 08/15/21 Location: ED Sex: F C Admitted: Reason For Study: Chest pain Right Proximal Right jugular vein is spontaneous, widely patent, phasic, with no intraluminal echogenicity noted. Right subclavian vein is spontaneous, widely patent, phasic, with no intraluminal echogenicity noted. Right Lower Arm Right radial vein is compressible. Right ulnar vein is compressible. Right Arm Right axillary vein is spontaneous, patent, phasic, competent, compressible and demonstrates augmentation. Right brachial vein is compressible. Right cephalic vein is compressible. Right basilic vein is compressible. Patient Safety Preliminary report to Dr. Lopez. VL/Venous Duplex US, Unilateral Interpretation Summary No evidence for acute deep venous thrombosis[right] upper extremity with patent and compressible cephalic and basilic veins. _ Ordering Physician: Tevin Lopez Referring Physician: Dylan Velarde Performed By: Ayla Moulton RVT ? 08/15/21 1255 Date Arley Jama MD CC: SHEET METAL WORK FURNACE INSTALLER-C Dylan Velarde; Dr. Tevin Lopez DO Date Dictated: 08/15/21 1132 Date Transcribed: 08/15/21 1255 Hosiery Mater: Pita Velarde Work Phone: Start: 08-15-2021 End: 08-16-2021 Emergency Department Summary Comments: See Note; NOTES: [facility] Medical Records Department [address] [place] [address] Emergency Department Summary 08/15/21 MR#: [id number] Acct: [id number] Name: DOUG FLANAGAN Rep #: [id number] : 1990 31 From: Tevin Lopez DO PCP: LUCY AnguloC Status:DEP ER Location: ED HPI History of Present Illness Chief Complaint: Other, Pain/Inj Informant: patient Narrative Narrative: 31-year-old female states that she normally does not feel her Mediport in her chest/neck but is feeling a catch today. She states it feels more swollen. She reports that she is on Eliquis due to prior clot at the site. The port was placed approximately [address] Malcolm. She states that she was advised to come to the emergency room today. She has paresthesias in the right arm [facility] Medical History Anemia Chest pain Difficulty chewing Difficulty swallowing History of stress test Injury of head and neck Leg cramps Migraine headache Myasthenia gravis Non-smoker Normal echocardiogram ( 05/18/16) Seizures Shortness of breath on exertion Home Medications zonisamide 200 mg PO 0800 12/23/17 [History Last Taken 11/01/20 08:00] lorazepam 1 mg PO DAILY PRN PRN 01/07/18 [History Last Taken 05/03/18] zonisamide 300 mg PO QHS 03/26/19 [History Last Taken 11/01/20 20:00] ropinirole 1 mg PO QHS 10/06/19 [History Last Taken 11/01/20 20:00] Mirena 20 mcg INTRAUTERINE UD 10/14/20 [History Last Taken Unknown] Soliris 1,200 mg IV .QOWEEK 10/14/20 [History Last Taken 10/29/20 08:00] lamotrigine 200 mg PO 0800 10/14/20 [History Last Taken 11/01/20 08:00] lamotrigine 250 mg PO QHS 10/14/20 [History Last Taken 11/01/20 20:00] oxcarbazepine 150 mg PO QHS 10/14/20 [History Last Taken 11/01/20 20:00] Eliquis 5 mg PO BID 11/02/20 [History Last Taken 11/01/20 20:00] ferrous sulfate [iron] 325 mg PO DAILY 11/02/20 [History Last Taken 11/01/20 08:00] Allergy/AdvReac Type Severity Reaction Status Date / Time levetiracetam [From Keppra] Allergy Other Verified 08/15/21 10:34 Penicillins Allergy Rash Verified 08/15/21 10:34 phenytoin [From Dilantin] Allergy PT UNSURE Verified 08/15/21 10:34 OF REACTION shellfish derived Allergy Other Verified 08/15/21 10:34 soy AdvReac NEEDS Verified 08/15/21 10:34 FOLLOW-UP Surgical History Hx of appendectomy Hx of thymectomy Hx of total hip arthroplasty Social History household members: spouse Smoking Status: Never smoker second hand exposure: Yes alcohol intake: never substance use type: does not use ROS ROS ED Constitutional Constitutional ED: Denies chills, fever(s), sweats or weight loss Eyes Eyes: Denies change in vision or diplopia ENT ENT ED: Denies ear pain, rhinorrhea or sore throat Cardiovascular Cardiovascular: Reports chest pain; Denies orthopnea, palpitations or racing heartbeat Respiratory/Chest Respiratory/Chest: Denies cough, dyspnea or orthopnea Gastrointestinal Gastrointestinal: Denies abdominal pain, diarrhea, nausea or vomiting Genitourinary Genitourinary ED: Denies dysuria, hematuria or urinary frequency Musculoskeletal Musculoskeletal: Denies arthralgias or myalgias Integumentary Denies abscess or rash Neurologic Neurologic: Denies headache(s) or weakness Psychiatric Psychiatric: Denies anxiety, depression, suicidal ideation or suicidal thoughts Endocrine Endocrinology: Denies polydipsia, polyphagia or polyuria Allergic/Immunologic Allergic/Immunologic ED: Denies mouth swelling, tongue swelling or urticaria EXAM Physical Exam Const Vital Signs: 08/15/21 10:34 08/15/21 10:39 08/15/21 11:17 Temperature 97.8 F 97.8 F Temperature Source Temporal Temporal Pulse Rate 104 H 104 H Respiratory Rate 16 16 Respiratory Effort Normal Non-Labored Respiratory Pattern Normal Blood Pressure 111/99 H 111/99 H Blood Pressure Mean 103 103 Pulse Ox 96 96 Oxygen Delivery Method Room Air Room Air Positive well nourished and well developed General Appearance ED: well developed HEENT Reports normocephalic, head/scalp atraumatic and moist mucous membranes trauma Eyes PERRL and EOMs intact bilaterally Neck no lymphadenopathy, supple and no JVD Chest Wall Chest Narrative: There is a palpable port underneath the skin. I do not appreciate significant swelling or redness. The arm is not swollen. There does not appear to be any JVD. Resp normal respiratory effort and clear to auscultation bilaterally Cardio regular rate, regular rhythm and no murmurs GI normal to inspection, nondistended, normoactive bowel sounds and non-tender Palpation: soft Back/Spine no CVA tenderness and normal ROM Extremity normal to inspection General Extremety ED: Negative for edema General Extremity: Negative for edema Neuro oriented x3 and CN's II-XII intact bilaterally Sensorium / Orientation: alert Motor Exam: strength 5/5 throughout Psych mental status grossly normal Mood Affect: Negative for depressed or tearful Skin no rashes or lesions noted and no wounds MDM MDM MDM Narrative Medical decision making narrative: Interpretation of the chest x-ray is no acute process. Report does not seem to have migrated when compared to chest x-ray dated 17 February 2021. Duplex ultrasound does not show a subclavian or internal jugular clot. Does not appear to be any clot in the arm. I do not see evidence of port infection. I spoke with her surgeon Dr. Malcolm who notes that she has followed up with vascular surgery due to the clot complication. He recommends following up with them. Patient will give them a call and arrange follow-up Radiography Diagnostic Testing: Clinical Impression(s) from Imaging Studies Chest X-Ray 08/15/21 10:50 IMPRESSION: Normal x-ray examination of the chest. Electronically Signed: Mitchel Conrad MD at 11:15 EDT , Discharge Plan Triage Chief Complaint: Other, Pain/Inj ED Provider: Tevin Lopez Dx/Rx/DC Orders Clinical Impression: Chest pain, Vascular port complication Prescriptions: No Action zonisamide 100 capsule 200 mg PO 0800 RF: 0 lorazepam 1 MG tablet 1 mg PO DAILY PRN PRN (Reason: Seizure) RF: 0 zonisamide 100 MG capsule 300 mg PO QHS RF: 0 ropinirole 0.5 MG tablet 1 mg PO QHS RF: 0 oxcarbazepine 150 mg tablet 150 mg PO QHS RF: 0 Mirena 20 mcg/24 hours (6 yrs) 52 mg Intrauterine Device 20 mcg INTRAUTERINE UD RF: 0 Soliris 300 mg/30 mL Solution 1,200 mg IV .QOWEEK RF: 0 lamotrigine 200 mg tablet extended release 24hr 200 mg PO 0800 RF: 0 lamotrigine 250 mg tablet extended release 24hr 250 mg PO QHS RF: 0 ferrous sulfate [iron] 325 mg (65 mg iron) Tablet 325 mg PO DAILY RF: 0 Eliquis 5 mg tablet 5 mg PO BID RF: 0 Primary Care Provider: Dylan Velarde NP Referrals: Dylan Velarde NP, [employer] FURNACE INSTALLER-C [Primary Care Provider] - Activity Restrictions/Additional Instructions: It is recommended that you follow-up with your vascular surgeon Disposition Disposition: Home, Self Care What to do if you have Problems For any increased pain, shortness of breath, bleeding, nausea or vomiting, chest pain, or any unexpected problems, contact your Primary Care Provider. Call [facility] ([phone]) or report to the closest Emergency Room. Call 911 if necessary. 08/16/21 0656 <Electronically signed by Tevin Lopez DO> Cosigner Signature (if applicable): CC: SHEET MET[employer] WORK FURNACE INSTALLERTracieC Dylan Velarde Signed Dylan Velarde Work Phone: Start: 08-15-2021 End: 08-15-2021 Chest 1 View (Portable) Comments: See Note; NOTES: [facility] Imaging Services [address] [place] [address] Chest 1 View (Portable) MR#: [id number] Acct: [id number] Name: DOUG FLANAGAN Rep #: [id number] : 1990 F 31 From: Mitchel vieira MD PCP: Dylan Velarde NP-Robert Status: PRE ER Study: Chest 1 View (Portable) Date of Exam: 08/15/21 Exam# [id number] Ordering Dr: Tevin Lopez DO STUDY: X-RAY CHEST REASON FOR EXAM: Female, 31 years old. Chest pain. TECHNIQUE: PA and lateral views of the chest. COMPARISON: Comparison is made with prior examination dated 02/17/2021. FINDINGS: A right-sided donita catheter seen with the tip in the midportion of the superior vena cava. The lungs are clear and expanded. There is no demonstrated pleural abnormality. Normal size heart. Normal mediastinum and shima. Normal visualized pulmonary arteries. Normal visualized aortic arch and descending thoracic aorta. Normal visualized thoracic spine. Normal visualized ribs, clavicles, and shoulders. There is no demonstrated abnormality of the visualized soft tissue structures of the upper abdomen. RAD/Chest 1 View (Portable) IMPRESSION: Normal x-ray examination of the chest. Electronically Signed: Mitchel Conrad MD at 11:15 EDT Reading Location ID and State: [facility] / [place] , Service support , CC: [employer] FURNACE INSTALLER-Robert Velarde; Dr. Tevin Lopez DO Hosiery Mater: Signed Dylan Velarde Work Phone: Start: 08-15-2021 Plain chest X-ray [employer] F[employer]NACE INSTALLER-C Dylan Velarde [employer] F[employer]NACE INSTALLER Work Phone: Start: 06-13-2021 Urine culture Start: 02-17-2021 End: 02-26-2021 Emergency Department Summary Comments: See Note; NOTES: [facility] Medical Records Department [address] [place] [address] Emergency Department Summary 02/17/21 MR#: [id number] Acct: [id number] Name: DOUG FLANAGAN Rep #: [id number] : 1990 30 From: Kojo Lewis DO PCP: Dr. Donna Perdomo MD Status:REG ER Location: ED HPI History of Present Illness Chief Complaint: Seizure Narrative Narrative: 30-year-old female presenting with breakthrough seizures today. Patient called her mother to states she did not feel well and she thought maybe she had a seizure. On arrival of her mother she states her daughter was post ictal. She was confused and agitated. Patient refused to take Ativan which she is prescribed for breakthrough seizure. She states that currently she feels well. Her mother states she still little bit confused. Patient's mother states that she is had her seizures under control for greater than a year. Patient has a port and states there was a previous clot in this and she is on Eliquis for this. She is also on Soliris for her myasthenia gravis. [facility] Medical History Anemia Chest pain Difficulty chewing Difficulty swallowing History of stress test Injury of head and neck Leg cramps Migraine headache Myasthenia gravis Non-smoker Normal echocardiogram ( 05/18/16) Seizures Shortness of breath on exertion Home Medications zonisamide 200 mg PO 0800 12/23/17 [History Last Taken 11/01/20 08:00] lorazepam 1 mg PO DAILY PRN PRN 01/07/18 [History Last Taken 05/03/18] zonisamide 300 mg PO QHS 03/26/19 [History Last Taken 11/01/20 20:00] ropinirole 1 mg PO QHS 10/06/19 [History Last Taken 11/01/20 20:00] Mirena 20 mcg INTRAUTERINE UD 10/14/20 [History Last Taken Unknown] Soliris 1,200 mg IV .QOWEEK 10/14/20 [History Last Taken 10/29/20 08:00] lamotrigine 200 mg PO 0800 10/14/20 [History Last Taken 11/01/20 08:00] lamotrigine 250 mg PO QHS 10/14/20 [History Last Taken 11/01/20 20:00] oxcarbazepine 150 mg PO QHS 10/14/20 [History Last Taken 11/01/20 20:00] Eliquis 5 mg PO BID 11/02/20 [History Last Taken 11/01/20 20:00] ferrous sulfate [iron] 325 mg PO DAILY 11/02/20 [History Last Taken 11/01/20 08:00] Allergy/AdvReac Type Severity Reaction Status Date / Time levetiracetam [From Keppra] Allergy Other Verified 11/02/20 02:18 Penicillins Allergy Rash Verified 11/02/20 02:18 phenytoin [From Dilantin] Allergy PT UNSURE Verified 11/02/20 02:18 OF REACTION shellfish derived Allergy Other Verified 11/02/20 02:18 soy AdvReac NEEDS Verified 02/17/21 22:00 FOLLOW-UP Surgical History Hx of appendectomy Hx of thymectomy Hx of total hip arthroplasty Social History household members: spouse Smoking Status: Never smoker second hand exposure: Yes alcohol intake: never substance use type: does not use ROS ROS ED Constitutional Constitutional ED: Denies chills or fever(s) Eyes Eyes: Denies blurry vision or change in vision ENT ENT ED: Denies rhinorrhea or sore throat Cardiovascular Cardiovascular: Denies chest pain or palpitations Respiratory/Chest Respiratory/Chest: Denies cough or dyspnea Gastrointestinal Gastrointestinal: Denies abdominal pain, nausea or vomiting Genitourinary Genitourinary ED: Denies dysuria, hematuria or urinary frequency Musculoskeletal Musculoskeletal: Denies arthralgias, myalgias or neck pain Integumentary Denies rash Neurologic Neurologic: Reports headache(s); Denies paresthesias EXAM Physical Exam Const Vital Signs: 02/17/21 21:54 02/17/21 23:07 02/17/21 23:51 Temperature 98.4 F Temperature Source Temporal Pulse Rate 117 H 95 Respiratory Rate 18 16 Blood Pressure 140/76 H 113/71 Blood Pressure Mean 97 85 Pulse Ox 98 95 95 Oxygen Delivery Method Room Air Room Air Room Air Positive well nourished General Appearance ED: NAD; Negative for pallor HEENT Reports normocephalic and moist mucous membranes atraumatic Eyes PERRL and EOMs intact bilaterally Resp normal respiratory effort and clear to auscultation bilaterally Cardio regular rhythm Rate: tachycardic GI non-tender Palpation: soft Extremity normal to inspection; Negative for full ROM or normal capillary refill Neuro Neuro Narrative: Patient is conversing. She is not able to tell me the month of the year. Mother states she is confused more than normally after seizure. Sensorium / Orientation: awake and alert Skin General Skin Exam: Negative for jaundice or pallor Rashes: no rashes MDM MDM MDM Narrative Medical decision making narrative: After initial interview patient had breakthrough seizure. She was given Ativan. It appears to be [place]. Will obtain blood work and imaging. Patient is given IV fluids. I did check a CBC which was normal. She has no leukocytosis. Hemoglobin hematocrit are stable. On BMP her creatinine is normal. Potassium slightly low at 3.4. Sodium is normal. Magnesium is 1.9. Troponin was negative at 4. Serum test was negative. Chest x-ray on my interpretation shows no acute cardiopulmonary process and the radiologist does agree. EKG on my interpretation shows a normal sinus rhythm at a ventricular rate of 108 bpm without sign of ischemic change or dysrhythmia. CT of the brain is negative for acute intracranial process. I was able to speak with her neurologist and he did not want to change any medications but is willing to see her in the morning. I did explain to him that if she would have taken the Ativan she might of avoided future seizures but she was some reason for reluctant to take it. He did ask for levels of her oxycarbazine. and lamotrigine which she will follow. He did not feel the patient need to stay for this. Patient has not had any breakthrough seizures since she was given Ativan. She is discharged home into the care of her mother. Her mother will give Ativan as needed and return to the ER if there is any new or worsening symptoms Impression: 1. Breakthrough seizure Lab Data Attestation: I reviewed the patient's lab results. Labs: Laboratory Results - last 24 hr 02/17/21 02/17/21 02/17/21 21:54 21:54 21:54 WBC 8.9 RBC 5.00 Hgb 13.8 Hct 41.6 MCV 83.2 MCH 27.6 MCHC 33.2 RDW Std Deviation 38.4 RDW Coeff of Mariella 12.7 Plt Count 290 MPV 10.2 Immature Gran % (Auto) 0.100 Neut % (Auto) 84.5 H Lymph % (Auto) 10.7 L Whiteside % (Auto) 4.0 Eos % (Auto) 0.2 Baso % (Auto) 0.5 Absolute Neuts (auto) 7.5 Absolute Lymphs (auto) 0.95 Nucleated RBC % 0 Sodium 141 Potassium 3.4 L Chloride 108 H Carbon Dioxide 21.0 Anion Gap 12 BUN 9 Creatinine 1.09 H Estim Creat Clear Calc 0.08 Est GFR (MDRD) Af Amer 75 Est GFR (MDRD) Non-Af 62 BUN/Creatinine Ratio 8.3 L Glucose 130 H Calcium 9.3 Magnesium 1.9 Troponin I High Sens 4 Serum , Qual NEGATIVE Radiography Diagnostic Testing: Clinical Impression(s) from Imaging Studies Brain CT 02/17/21 23:07 IMPRESSION: No acute intracranial finding. MRI may be obtained if clinically indicated. Electronically Signed: Chris Limon MD at 0:05 EDT Tel , Service support , Chest X-Ray 02/17/21 23:07 IMPRESSION: No acute cardiopulmonary process. Electronically Signed: Chris Limon MD at 0:09 EDT Tel , Service support , Discharge Plan Triage Chief Complaint: Seizure ED Provider: Kojo Lewis Dx/Rx/DC Orders Instructions: ED Seizure, Recurrent (Adult) Prescriptions: No Action zonisamide 100 capsule 200 mg PO 0800 RF: 0 lorazepam 1 MG tablet 1 mg PO DAILY PRN PRN (Reason: Seizure) RF: 0 zonisamide 100 MG capsule 300 mg PO QHS RF: 0 ropinirole 0.5 MG tablet 1 mg PO QHS RF: 0 oxcarbazepine 150 mg tablet 150 mg PO QHS RF: 0 Mirena 20 mcg/24 hours (6 yrs) 52 mg Intrauterine Device 20 mcg INTRAUTERINE UD RF: 0 Soliris 300 mg/30 mL Solution 1,200 mg IV .QOWEEK RF: 0 lamotrigine 200 mg tablet extended release 24hr 200 mg PO 0800 RF: 0 lamotrigine 250 mg tablet extended release 24hr 250 mg PO QHS RF: 0 ferrous sulfate [iron] 325 mg (65 mg iron) Tablet 325 mg PO DAILY RF: 0 Eliquis 5 mg tablet 5 mg PO BID RF: 0 Primary Care Provider: Donna Perdomo Referrals: Donna Perdomo MD [Primary Care Provider] - Disposition Disposition: Home, Self Care What to do if you have Problems For any increased pain, shortness of breath, bleeding, nausea or vomiting, chest pain, or any unexpected problems, contact your Primary Care Provider. Call [facility] ([phone]) or report to the closest Emergency Room. Call 911 if necessary. 02/18/21224 <Electronically signed by Kojo Lewis DO> Cosigner Signature (if applicable): CC: Dr. Donna Perdomo MD Signed Dylan Velarde [employer]ATFORM MAT[employer] HANDLING SUPERVISOR Work Phone: Start: 02-17-2021 End: 02-21-2021 12 Lead EKG Comments: See Note; NOTES: [facility] Cardiovascular Services [address] [place] [address] 12 Lead EKG 02/17/21 2342 MR#: [id number] Acct: [id number] Name: DOUG FLANAGAN Rep #: [id number] : 1990 30 From: Compa Healy MD Attending Dr: Status: DEP ER Ordering Dr: Kojo Lewis DO Date: 02/17/21 Location: ED Sex: F C Admitted: Test Reason : SEIZURE Blood Pressure : / mmHG Vent. Rate : 108 BPM Atrial Rate : 108 BPM P-R Int : 176 ms QRS Dur : 078 ms QT Int : 336 ms P-R-T Axes : 050 015 038 degrees QTc Int : 450 ms Sinus tachycardia Nonspecific T wave abnormality Abnormal ECG Confirmed by COMPA HEALY MD ([id number]), editorial project manager SALOME MENJIVAR ([id number]) on 02/18/2021 9:26:16 AM Referred By: OLGA Confirmed By:COMPA HEALY MD 02/18/2126 Date Compa Healy MD CC: Dr. Donna Perdomo MD; Dr. Kojo Lewis DO Signed Dylan Velarde [facility] Work Phone: Start: 02-17-2021 End: 02-21-2021 Brain/Head without Contrast Comments: See Note; NOTES: [facility] Imaging Services [address] [place] [address] Brain/Head without Contrast MR#: [id number] Acct: [id number] Name: DOUG FLANAGAN Rep #: [id number] : 1990 F 30 From: Chris Limon MD PCP: Dr. Donna Perdomo MD Status: REG Study: Brain/Head without Contrast Date of Exam: 01/31 12/21 Exam# [id number] Ordering Dr: Kojo Lewis DO STUDY: CT BRAIN WITHOUT CONTRAST REASON FOR EXAM: Female, 30 years old[facility] RADIATION DOSAGE (If Supplied By Facility): CTDIvol = ( 44.99 ) mGy, DLP = ( 796.11 ) mGycm TECHNIQUE: Transaxial CT imaging of the brain was performed without administration of intravenous contrast material. Individualized dose optimization techniques were used for this CT. COMPARISON: MRI dated 11/02/2020 FINDINGS: There is no intra-/extra-axial fluid collection, mass effect, or midline shift. The gonzlaes/white matter junction is preserved. The basal cisterns are patent. Visualized paranasal sinuses and mastoid air cells are clear. The calvarium is intact. CT/Brain/Head without Contrast IMPRESSION: No acute intracranial finding. MRI may be obtained if clinically indicated. Electronically Signed: Chris Limon MD at 0:05 EDT Tel , Service support , CC: Dr. Donna Perdomo MD; Dr. Kojo Lewis DO Hosiery Mater: Signed Dylan Bakerjv BANSAL Work Phone: Start: 02-17-2021 End: 02-21-2021 Chest 1 View (Portable) Comments: See Note; NOTES: [facility] Imaging Services [address] [place] [address] Chest 1 View (Portable) MR#: [id number] Acct: [id number] Name: DOUG FLANAGAN Rep #: [id number] : 1990 F 30 From: Chris Limon MD PCP: Dr. Donna Perdomo MD Status: REG ER Study: Chest 1 View (Portable) Date of Exam: 02/17/21 Exam# [id number] Ordering Dr: Kojo Lewis DO STUDY: X-RAY CHEST REASON FOR EXAM: Female, 30 years old. chest pain TECHNIQUE: 1 view COMPARISON: 05/02/2020 FINDINGS: Right-sided implanted port terminates in the distal SVC.Cardiomediastinal silhouette is unremarkable. Costophrenic angles are sharp. Lungs are clear. The trachea is midline. There is no pneumothorax. The bones are grossly intact. RAD/Chest 1 View (Portable) IMPRESSION: No acute cardiopulmonary process. Electronically Signed: Chris Limon MD at 0:09 EDT Tel , Service support , CC: Dr. Donna Perdomo MD; Dr. Kojo Lewis DO Hosiery Mater: Signed Dylan Velarde CNP Work Phone: Start: 11-02-2020 End: 11-02-2020 Brain/Head without Contrast Comments: See Note; NOTES: [facility] Imaging Services [address] [place] [address] Brain/Head without Contrast MR#: [id number] Acct: [id number] Name: DOUG FLANAGAN Rep #: [id number] : 1990 F 30 From: Jes Rider MD PCP: Dr. Donna Perdomo MD Status: REG ER Study: Brain/Head without Contrast Date of Exam: 07/21 Exam# [id number] Ordering Dr: Lesly Posada MD STUDY: CT BRAIN WITHOUT CONTRAST REASON FOR EXAM: Female, 30 years old. headache RADIATION DOSAGE (If Supplied By Facility): CTDIvol = ( 44.99 ) mGy, DLP = ( 796.11 ) mGycm TECHNIQUE: Transaxial CT imaging of the brain was performed without administration of intravenous contrast material. Individualized dose optimization techniques were used for this CT. COMPARISON: 10/06/2019. FINDINGS: Normal soft tissue structures. Normal calvarium. Normal size ventricles and extra-axial spaces for the patient''s age. Normal white matter tracts of the cerebral hemispheres. Normal basal ganglia and thalami. Normal brainstem. Normal cerebellum. There is no intracranial hemorrhage. There are no findings of an acute ischemic infarction. Normal visualized paranasal sinuses. CT/Brain/Head without Contrast IMPRESSION: Normal unenhanced CT scan of the brain. Electronically Signed: Jes Rider MD at 2:46 EDT , Service support , CC: Dr. Donna Perdomo MD; Dr. Lesly Posada MD Hosiery Mater: Signed Dylan Patheather BANSAL Work Phone: Start: 11-02-2020 End: 11-02-2020 CTA Chest W/WO Contrast Comments: See Note; NOTES: [facility] Imaging Services [address] [place] [address] CTA Chest W/WO Contrast MR#: [id number] Acct: [id number] Name: DOUG FLANAGAN Rep #: [id number] : 1990 F 30 From: Jes Rider MD PCP: Dr. Donna Perdomo MD Status: REG ER Study: CTA Chest W/WO Contrast Date of Exam: 11/02/20 Exam# [id number] Ordering Dr: Lesly Posada MD STUDY: CTA CHEST REASON FOR EXAM: Female, 30 years old. dyspnea, known DVT RADIATION DOSAGE (If Supplied By Facility): CTDIvol = ( 10.47 ) mGy, DLP = ( 404.28 ) mGycm TECHNIQUE: The examination was performed with the intravenous administration of IV 75mL Isovue-370. Post-processing of the angiographic images was performed, with multiplanar reformation and 3D reconstruction. Individualized dose optimization techniques were used for this CT. COMPARISON: 02/21/2015. FINDINGS: Normal enhancement of the main pulmonary artery and right and left pulmonary arteries. Normal enhancement of the bilateral peripheral pulmonary arteries. There is no demonstrated pulmonary embolism. Normal thoracic aorta and visualized great vessels. There is no demonstrated aortic dissection. Normal heart and pericardium. Normal mediastinum. Normal hilar regions. Normal visualized trachea and bronchi. The lungs are well expanded. Mild posterior dependent atelectasis. Mild linear left lower lobe atelectasis. Pulmonary parenchyma. Normal pleura. Normal chest wall structures. Normal osseous structures. Normal visualized upper abdomen. CT/CTA Chest W/WO Contrast IMPRESSION: Normal CTA chest examination, without a demonstrated pulmonary embolism or arterial dissection. Mild bilateral lower lobe atelectasis as described. Otherwise no acute cardiopulmonary process. Electronically Signed: Jes Rider MD at 2:50 EDT , Service support , CC: Dr. Donna Perdomo MD; Dr. Lesly Posada MD Hosiery Mater: Signed Dylan Veladre CNP Work Phone: Start: 10-25-2020 End: 10-25-2020 Venous Duplex US, Unilateral Comments: See Note; NOTES: [facility] Cardiovascular Services [address] [place] [address] Venous Duplex US, Unilateral 10/25/2018 MR#: [id number] Acct: [id number] Name: DOUG FLANAGAN Rep #: [id number] : 1990 30 From: Arley Jama MD Attending Dr: Dr. Tevin Malcolm MD Status: RE G CLI Ordering Dr: Tevin Malcolm MD Date: 10/25/20 Location: CVS Sex: F C Admitted: Reason For Study: NECK PAIN Right Proximal RT proximal IJV is partially compressible . Intravenous catheter is visualized . ACUTE THROMBUS noted surrounding catheter into proximal Sublcalvian V. The remainder of Subclavian V is completely compressible and color filling. Right Lower Arm Right radial vein is compressible. Right ulnar vein is compressible. Right Arm Right axillary vein is spontaneous, patent, phasic, competent, compressible and demonstrates augmentation. Right brachial vein is compressible. Right cephalic vein is compressible. Right basilic vein is compressible. Patient Safety Prelim results called to Dr Malcolm. VL/Venous Duplex US, Unilateral Interpretation Summary Catheter noted in the right internal jugular vein with visible thrombus around the catheter. Partial flow still noted around the catheter. More extensive thrombus extends into the right subclavian vein with lack of flow Distal right subclavian vein has resumption of flow Patent and compressible right axillary, brachial, radial, ulnar veins Patent and compressible right cephalic and basilic veins _ Ordering Physician: Tevin Malcolm Referring Physician: DYLAN VELARDE Performed By: Nilda Anne, KOKO, RVT ? 10/25/20 1257 Date Arley Jama MD CC: [employer] WORK FURNACE INSTALLER-C Dylan Velarde; Dr. Tevin Malcolm MD Date Dictated: 10/25/20817 Date Transcribed: 10/25/20 1257 Hosiery Mater: Signed Dylan Velarde [facility] Work Phone: Start: 10-16-2020 End: 10-16-2020 CXR for Line Placement Comments: See Note; NOTES: [facility] Imaging Services [address] [place] [address] CXR for Line Placement MR#: [id number] Acct: [id number] Name: DOUG FLANAGAN Rep #: [id number] : 1990 F 30 From: Mitchel vieira MD PCP: BECCA Angulo Status: REG [facility] Study: CXR for Line Placement Date of Exam: 10/16/20 Exam# [id number] Ordering Dr: Tevin Malcolm MD STUDY: X-RAY CHEST REASON FOR EXAM: Female, 30 years old. Port placement TECHNIQUE: Single AP portable view of the chest. COMPARISON: Comparison is made with prior study dated 05/02/2020. FINDINGS: A right-sided donita catheter is in situ with the tip in the right atrium. Mild increased markings in the medial aspect of the right upper lobe. There is no demonstrated pleural abnormality. Normal size heart. Normal mediastinum and shima. Normal visualized pulmonary arteries. Normal visualized aortic arch and descending thoracic aorta. Normal visualized thoracic spine. Normal visualized ribs, clavicles, and shoulders. There is no demonstrated abnormality of the visualized soft tissue structures of the upper abdomen. RAD/CXR for Line Placement IMPRESSION: The tip of the right portacatheter is in the right atrium. Mild increased linear markings in the right upper lobe. Electronically Signed: Mitchle Conrad MD at 15:16 EDT , Service support , CC: BECCA Velarde; Dr. Tevin Malcolm MD Hosiery Mater: Signed Dylan Velarde [facility] Work Phone: Start: 10-16-2020 End: 10-16-2020 Discharge Instruction Comments: See Note; NOTES: [facility] Medical Records Department [address] [place] [address] Instructions for Home/Discharge Instructions 10/16/20 1432 MR#: [id number] Acct: [id number] Name: DOUG FLANAGAN Rep #: [id number] : 1990 30 From: Tevin Malcolm MD PCP: BECCA Angluo Status:REG [facility] [place] Discharge Instructions Procedure Port-A-Cath Diet Discharge Diet: No restrictions (Pain medication may cause nausea. You should typically eat light foods as you take your pain medication.) Activity Discharge Activity: May Shower (with the bandage in place 1-2 days after surgery. DO NOT SHOWER WHEN YOUR PORT IS ACCESSED.) Additional Activity Instructions:: May not drive, work with heavy equipment, or sign legal documents for [address]. [address] if you are no longer taking narcotic pain medications. You may drive when you are no longer taking pain medications. Dressing / Incision Additional Dressing/Incision Instructions:: Leave the bandage on for 2-3 days. When you remove the bandage, leave the steri-strips intact until they fall off. Follow Up Care Please Follow Up With: Salome Hsieh PA-C When: Call office to schedule an appointment to be seen in 7 days. Test Results: Test results from this visit will be discussed in further detail at your follow-up appointment, if applicable. Discharge Plan Admission Attending Provider: Tevin Malcolm Primary Care Provider: Dylan Velarde NP Discharge Orders/Prescriptions Prescriptions: New oxycodone-acetaminophen [Endocet] 5-325 mg tablet 1 tab PO Q6H PRN (Reason: pain) 5 Days Qty: 20 RF: 0 Continued zonisamide 100 capsule 200 mg PO 08 RF: 0 lorazepam 1 MG tablet 1 mg PO DAILY PRN PRN (Reason: Seizure) RF: 0 zonisamide 100 MG capsule 300 mg PO 1999 RF: 0 ropinirole 0.5 MG tablet 1 mg PO 1999 RF: 0 oxcarbazepine 150 mg tablet 150 mg PO 1999 RF: 0 Mirena 20 mcg/24 hours (6 yrs) 52 mg Intrauterine Device 20 mcg INTRAUTERINE UD RF: 0 Soliris 300 mg/30 mL Solution 1,200 mg IV .QOWEEK RF: 0 lamotrigine 200 mg tablet extended release 24hr 200 mg PO 0800 RF: 0 lamotrigine 250 mg tablet extended release 24hr 250 mg PO QHS RF: 0 Other Ambulatory Orders: Chest 1 View (Portable) (Routine) Facility: [facility] - Location: [facility] Ordered By: Dr. Tevin Malcolm Referrals / Follow Up: Dylan Velarde NP, SHEET METAL WORK FURNACE INSTALLER-C [Primary Care Provider] - 10/16/20 1436<Electronically signed by Tevin Malcolm MD>Tevin Malcolm MD CC: BECCA Velarde Signed Dylan Velarde PLATFORM MATERIAL HANDLING SUPERVISOR Work Phone: Start: 10-16-2020 End: 10-16-2020 Operative Report Comments: See Note; NOTES: [facility] Medical Records Department [address] [place] [address] Operative Report 10/16/20 1424 MR#: [id number] Acct: [id number] Name: DOUG FLANAGAN Rep #: [id number] : 1990 30 From: Tevin Malcolm MD PCP: Dylan Velarde NP-C Status:REG [facility] [place] Location: [place] [address] Problems Associated Problem List Diagnoses (1) Vascular catheter fitting or adjustment: Report of Operation Date of Procedure: 10/16/20 Pre-Operative Diagnosis: Vascular fitting and adjustment Post-Operative Diagnosis: Same Surgery/Procedure Performed:: Placement of a right IJ PowerPort Surgeon: Tevin Malcolm client delivery manager: None Type of Anesthesia: MAC/Supplemental/Local Anesthesiologist: Monty Juárez Estimated Blood Loss (mL): < 25 cc Description of Procedure: Patient was brought into the operating room. Placed in the supine position. Under excellent MAC anesthetic ultrasound the right neck identified the right internal jugular vein marked the neck and chest appropriately. Patient was placed in the headdown position. The right neck and chest area was sterilely prepped and draped in usual fashion. Local was injected into the neck. Seldinger's technique was used to gain access to the right internal jugular vein guidewire was placed over the needle the needle was removed. Fluoroscopy was used to confirm proper placement of the guidewire. I injected local in the chest made an incision used electrocautery to create a pocket for the port. Made a skin hussein in the neck place a dilator and sheath over the guidewire removing the dilator and guidewire a single lumen catheter was placed over the sheath the sheath was removed. I used fluoroscopy to confirm proper length. I tunneled from the pocket over the collarbone into the neck and brought the catheter down. I cut the catheter to length placed the locking hub on the catheter of the port onto the catheter and then secured the tube with a locking hub. I sutured the port into the pocket created with 2 sutures of 2-0 Prolene. I flushed it I irrigated it with 5 cc of hep flush it flushed and irrigated quite well. Incisions were then brought together with deep dermal stitches of 3-0 Vicryl. Dermabond was applied. Sterile dressings were applied. Patient tolerated the procedure well. Postoperative chest x-ray was obtained. Admit VTE Documentation VTE Present on Admission: No VTE Pharm Prophylaxis ordered?: No Reason prophylaxis not ordered:: Treatment Not Indicated 10/16/20 1431 <Electronically signed by Tevin Malcolm MD> Cosigner Signature (if applicable): CC: SHEET METAL WORK FURNACE INSTALLER-C Dylan Velarde; Dr. Tevin Malcolm MD Signed Dylan Velarde PLATFORM MATERIAL HANDLING SUPERVISOR Work Phone: Start: 10-16-2020 End: 10-16-2020 History and Physical Exam Comments: See Note; NOTES: [facility] Medical Records Department [address] [place] [address] History Physical Exam 10/16/20 1336 MR#: [id number] Acct: [id number] Name: DOUG FLANAGAN Rep #: [id number] : 1990 30 From: Tevin Malcolm MD PCP: BECCA Angulo Status:REG [facility] [place] Location: [place] [address] History and Physical Date of Admission: 10/16/20 HISTORY AND PHYSICAL ??? Doug Flanagan 1990 ? REFERRING PHYSICIAN: Gerald Gilmore MD ??? CHIEF COMPLAINT: Consult (Port placement) ??? HPI: The patient is a 30 year old female with a diagnosis of Vascular catheter fitting or adjustment (primary encounter diagnosis). Doug is currently scheduled to undergo chemotherapy and needs vascular access for treatment. The patient denies a prior history of central venous access. ??? The patient is right hand dominant. ??? The patient is being seen by me today at the request of Dr. Gilmore for my opinion and advice regarding Vascular catheter fitting or adjustment (primary encounter diagnosis). ? PAST MEDICAL HISTORY PAST MEDICAL HISTORY Diagnosis Date ??? 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 Depression ? resolved ??? Epilepsy (HCC) ? Family history of epilepsy ? Aunt with traumatic epilepsy ??? Migraine ? disorder ? She was two weeks late; but no complication ??? Pleurisy ? recurrent. ??? Traumatic brain injury (HCC) 9 years of age ??? Fell off the monkey bars; lost consciousness 3-5 minutes ? PAST SURGICAL HISTORY PAST SURGICAL HISTORY Procedure Laterality Date ??? APPENDECTOMY ? LEEP PROCEDURE (WIRELINE FIELD OPERATOR DEPT)_*[place] ? CURRENT MEDICATIONS Current Outpatient Medications Medication Sig Dispense Refill ??? rOPINIRole (REQUIP) 0.5 mg tablet take 1 tablet by mouth 1-3 HOURS PRIOR TO BEDTIME ? OXcarbazepine (TRILEPTAL) 150 mg tablet Take 150 mg by mouth daily at bedtime. ? LORazepam (ATIVAN) 1 mg tablet take 1 tablet by mouth if needed for SEIZURE GERATER THAN 5 MINUTES DIRECTED (FOR 30 DAYS) ? eculizumab (SOLIRIS INTRAVENOUS) Inject intravenously. ? Vadim.acidoph-B.lactis-Btamiko m (FLORAJEN3) 460 mg (7.5-6- 1.5 bill. cell) cap Take 1 capsule by mouth once daily. (Patient not taking: Reported on 02/06/2019 ) 30 capsule 2 ??? levonorgestrel (MIRENA) 20 mcg/24 hours (5 yrs) 52 mg IUD 1 Each by INTRAUTERINE route one time only. ? pyridostigmine (MESTINON) 60 mg tablet Take 60 mg by mouth three times daily. ? lamoTRIgine ER (LAMICTAL XR) 100 mg 24 hr tablet Take two (2.0) in AM and four(4.0) tablets at bedtime 540 tablet 1 ??? zonisamide (ZONEGRAN) 100 mg capsule Take 3 capsules by mouth once daily. 270 capsule 1 ??? acetaminophen (TYLENOL) 325 mg tablet Take 650 mg by mouth every 6 hours as needed. ? No current facility-administered medications for this visit. ? ALLERGIES: Dilantin [Phenytoin], Keppra [Levetiracetam], and Penicillins ??? PERSONAL HISTORY: SOCIAL HISTORY Social History ??? Tobacco Use ??? Smoking status: Never Smoker ??? Smokeless tobacco: Never Used Substance Use Topics ??? Alcohol use: No ??? Drug use: No ??? FAMILY HISTORY: FAMILY HISTORY FAMILY HISTORY Problem Relation Age of Onset ??? Headache Mother ? Headache Maternal Grandfather ? Multiple Sclerosis Sister ? Seizures Maternal Aunt ? Traumatic epilepsy ? REVIEW OF SYMPTOMS: The review of systems data was entered by the nurse and reviewed by me ??? Nursing Notes: Catie Martinez RN 10/14/2020 8:56 AM Signed REVIEW OF SYSTEMS: General: The patient notes fatigue, denies weight loss, notes weight gain, denies feeling hot, and denies feelings of cold. Eyes: The patient denies glaucoma, denies eye injury/surgery, wears glasses or contacts. Ear/Nose/Throat: The patient notes allergies, notes hayfever, denies ear infections, and denies bloody noses. Cardiovascular: The patient denies chest pain, denies heart disease, denies high blood pressure,denies cardiac stent, denies prior heart attack, notes irregular heart beat, denies high cholesterol, denies poor circulation, notes heart failure, other cardiac issues, denies claudication, denies cold feet, denies peripheral arterial stent. Respiratory: The patient denies tuberculosis, denies pneumonia, denies frequent cough, denies pulmonary embolism, notes shortness of breath, and denies coughing up blood. Gastrointestinal: The patient notes difficulty swallowing, denies acid reflux, denies ulcers, denies vomiting, denies jaundice/hepatitis, denies gallbladder problems, denies black or tarry stools, denies hemorrhoids, denies bleeding from rectum, denies diverticulitis, denies constipation, denies diarrhea, denies loss of stool control, and denies hernias. Kidney/Bladder: The patient denies kidney stones, notes urine infections, and denies bloody urine. Skin: The patient denies a history of skin cancer, denies bleeding/changing moles, and denies a history of skin rash. Neurologic: The patient notes a history of epilepsy/convulsions, notes headaches, notes head/spinal injuries, and denies stroke/TIA. Psychiatric: The patient notes psychiatric medications, denies depression, and denies voices, denies substance abuse. Endocrine: The patient denies thyroid disorders, denies diabetes, and denies hormonal problems. Hematologic: The patient notes a history of bruising, notes bleeding, and notes anemia, denies blood clots. Infections: The patient notes a history of measles and mumps, denies rheumatic fever, and denies sexually transmitted diseases. Musculoskeletal: The patient denies back pain/injury, denies back problems, denies sciatica, notes knee/foot trouble, denies arthritis, or denies gout. ? When was patient's last Mammogram screening? N/A ??? Last Colonoscopy: None ??? Catie Martinez RN ??? PHYSICAL EXAMINATION: ??? General: The patient is 30 year old female, well nourished, well hydrated in no acute distress. The patient is oriented to time, place, and person. ??? VITALS: Last menstrual period 04/19/2020. There is no height or weight on file to calculate BMI. ??? HEENT: Normal cephalic, ataumatic, pupils are equally round, sclera are anicteric, mucous membranes are moist, oropharynx is clear. Neck has no masses, asymmetry or lymphadenopathy. Thyroid is unremarkable. ??? Respiratory: Clear to auscultation and percussion. Normal respiratory excursion and pattern. ??? Cardiac: Examination is regular rate and rhythm. ??? Abdominal exam: Soft, nontender, with no palpable masses. No hepatosplenomegaly. No palpable hernias. ??? Rectal exam: exam deferred ??? Extremities: no clubbing, cyanosis or edema. No adenopathy. ??? Other: ? LABORATORY VALUES: As Noted ??? RADIOLOGIC STUDIES: As Noted ??? Assessment IMPRESSION: Vascular catheter fitting or adjustment (primary encounter diagnosis), need for IV access ??? PLAN: I plan to perform a right ij port a cath placement. The planned surgical procedure was discussed extensively with the patient. The risks, benefits, anticipated outcomes and possible complications were mentioned. My staff has also explained the procedure in understandable terms and the patient was given the option to take printed material concerning the planned procedure. The patient had the opportunity to ask questions concerning the planned procedure. The patient freely consents to the planned procedure. ??? Planned Procedure: right Internal Jugular Portacath - [id number] ??? Patient Weight Last 1 Encounter Wt Readings: Date: Wt: 04/22/2020 66.2 kg (146 lb) ??? Antibiotic: clindamycin 900mg IVPB infection prevention coordinator to OR ??? Planned Anesthetic: MAC with local ??? I WILL NOT plan to access the port at the time of surgery. ??? Diagnoses: (Z45.2) Vascular catheter fitting or adjustment (primary encounter diagnosis) ? The patient is being seen by me today at the request of Dr. Gilmore for my opinion and advice regarding Vascular catheter fitting or adjustment (primary encounter diagnosis). ??? COVID (Procedure Consent) Procedure Criteria ??? Procedure Criteria: Yes Elective The surgeon/proceduralist and patient have discussed in detail the risk of exposure to and/or potential harm posed by the COVID-19 virus with having a surgery/procedure at this time versus the risk of??? delaying the surgery/procedure. It is not possible to know either the risk of delaying the surgery or procedure or chance of getting an infection with perfect accuracy, but a joint decision was made between the patient and the surgeon/proceduralist ???to proceed at this time with the scheduled surgery/procedure as indicated on the consent form. ??? ___ Tevin Malcolm III, MD I have re-examined the patient. There are no clinical changes since date of exam. 10/16/20 1337 <Electronically signed by Tevin Malcolm MD> Cosigner Signature (if applicable): CC: SHEET METAL WORK FURNACE INSTALLERLd Velarde; Dr. Tevin Malcolm MD Signed Dylan Velarde PLATFORM MATERIAL HANDLING SUPERVISOR Work Phone: Start: 05-02-2020 End: 05-02-2020 Chest PA and Lateral Comments: See Note; NOTES: [facility] Imaging Services [address] [place] [address] Chest PA and Lateral MR#: [id number] Acct: [id number] Name: DOUG FLANAGAN Rep #: [id number] : 1990 F 29 From: Lauri Jimenez DO PCP: BECCA Angulo Status: REG ER Study: Chest PA and Lateral Date of Exam: 05/02/20 Exam# [id number] Ordering Dr: Vivek De Souza DO STUDY: X-RAY CHEST REASON FOR EXAM: Female, 29 years old. Onset shortness of breath. Patient states she is having a myasthenia gravis attack. TECHNIQUE: PA and lateral views of the chest. COMPARISON: Chest, 12/22/2018. FINDINGS: The lungs are clear and expanded. There is no demonstrated pleural abnormality. Normal size heart. Normal mediastinum and shima. Normal visualized pulmonary arteries. Normal visualized aortic arch and descending thoracic aorta. Normal visualized thoracic spine. Normal visualized ribs, clavicles, and shoulders. There is no demonstrated abnormality of the visualized soft tissue structures of the upper abdomen. RAD/Chest PA and Lateral IMPRESSION: No acute cardiopulmonary disease. Electronically Signed: Lauri Jimenez DO at 23:33 EST Tel [phone], Service support , CC: BECCA Velarde; Dr. Vivek De Souza DO Hosiery Mater: Signed Dylan Velarde Start: 05-02-2020 End: 05-03-2020 Emergency Department Summary Comments: See Note; NOTES: [facility] Medical Records Department [address] [place] [id number] Emergency Department Summary 05/02/20 MR#: [id number] Acct: [id number] Name: MASHADOUG BRADLEY Rep #: [id number] : 1990 29 From: Vivek De Souza DO PCP: BECCA Angulo Status:REG ER History of Present Illness Chief Complaint: Shortness of Breath Informant: Patient Narrative: Patient is a 29-year-old female with a past medical history of myasthenia gravis and epilepsy who presents to the emergency department for shortness of breath. She states that this started suddenly this afternoon. She did have previous episodes like this many years ago but was not diagnosed with myasthenia at that time. She is not sure if she is having a crisis. She contacted her neurologist who referred her to the emergency department. She feels like an elephant is sitting on her chest. She denies any history of heart attacks or DVT/PE. No leg swelling or calf pain. She denies any recent cough. No fevers or chills. No abdominal pain. She does not have a smoking history. Past Medical History - Allergies and Home Meds Allergies/Adverse Reactions: Allergies levetiracetam [From Keppra] Allergy (Verified 05/02/20 21:59) Other Hallucinations Penicillins Allergy (Verified 05/02/20 21:59) Rash phenytoin [From Dilantin] Allergy (Verified 05/02/20 21:59) PT UNSURE OF REACTION hallucinations Primary Care Physician: Dylan Velarde SHEET METAL WORK FURNACE INSTALLER, SHEET METAL WORK FURNACE INSTALLER-C [Primary Care Provider] - Prior records reviewed: Yes Surgical History: - - Thymectomy, appendectomy. Smoking Status: Never smoker - Family History Paternal Family History: Reports: - - Patient and family present denies any market maternal or paternal family history including heart disease, diabetes, cancer, seizures. Maternal Family History: Reports: - - Patient and family present denies any market maternal or paternal family history including heart disease, diabetes, cancer, seizures. Review of Systems All systems negative except as indicated General: Denies: Chills, Fever, Sweats Eyes: Denies: Visual changes - bilaterally, Diplopia ENT: Denies: Rhinorrhea, Sore throat Cardiovascular: Reports: Chest pain. Denies: Palpitations Respiratory: Reports: Dyspnea. Denies: Cough Gastrointestinal: Denies: Abdominal pain, Nausea, Vomiting, Diarrhea Genitourinary: Denies: Dysuria, Hematuria, Frequency Musculoskeletal: Denies: Back pain, Extremity Pain Skin: Denies: Rash, Wounds Neurological: Denies: Headache, Weakness, Numbness Physical Exam Vital Signs/Narrative: Vital Signs Temp Pulse Resp BP Pulse Ox 05/02/20 21:56 97.8 F 104 H 18 144/75 H 99 Inital Vital Signs reviewed: Yes General: Well nourished, Well developed, No Acute Distress Head: Normocephalic, Atraumatic Eyes: Perrl, EOMI, - - No ptosis ENT: Moist mucous membranes, No rhinorrhea Neck: Supple, Nontender Cardiovascular: Regular rate, Regular rhythm, No murmurs Respiratory: No distress, CTA bilaterally, Chest nontender, - - Patient talking in full sentences. No increased work of breathing. Abdomen: Soft, Nontender, Nondistended, Normal bowel sounds Back: Nontender, Normal Inspection Extremities: Nontender, No edema Skin: Normal color, No rash Neurological: Alert, Oriented x3, Cranial nerves II-XII grossly intact, Normal Strength, Normal Sensation Psychological: Normal affect, Normal Mood Diagnostic/Tx/Re-eval Chest X-Ray - ED: 2 View - Two view x-ray interpreted by myself. No evidence of consolidation, pneumothorax. No pleural effusions. Normal cardiac silhouette. Normal mediastinum. No acute cardiopulmonary process. Radiology interpretation pending. - EKG Initial EKG Interpretation: - - Rate of 93 bpm and normal sinus rhythm. Normal intervals. Normal axis. No ST elevations or depressions. No T wave abnormalities. - Medical Decision Making Patient presents to the emergency department for shortness of breath. This did start all of a sudden. Upon arrival to the emergency department she is satting 99% on room air. She is in no acute distress. No other weakness noted. Will check basic lab work, EKG and chest x-ray. Will check incentive spirometer to evaluate and tidal volume. She is protecting her airway and not having any increased secretions. Respiratory therapy did check current respiratory spirometry which was over 1500. She has been stable throughout ED stay and satting well on room air. She was mildly tachycardic so D-dimer was obtained to evaluate for PE although she has no other risk factors for this. Her troponin is negative. Chest x-ray negative for acute cardiopulmonary abnormality. Patient's D-dimer is within normal limits. She has been stable throughout ED stay. I do feel she is safe for transfer at this time. I do not think that this is a myasthenia crisis as she has no other weakness and just her diaphragm to be effective would be extremely unusual. No other weakness and she has not been having any increased symptoms. Strict return precautions were discussed with her. She is to follow-up with her PCP otherwise. She understands and is agreeable this plan. All questions were answered. ED Disposition - Plan for ED Patient: Disposition: Home or Assisted Living Diagnosis: Dyspnea Instructions: ED Dyspnea Referrals: Dylan Velarde SHEET METAL WORK FURNACE INSTALLER, SHEET METAL WORK FURNACE INSTALLER-C [Primary Care Provider] - 1-2 Days if not improving What to do if you have Problems For any increased pain, shortness of breath, bleeding, nausea or vomiting, chest pain, or any unexpected problems, contact your Primary Care Provider. Call [facility] ([phone]) or report to the closest Emergency Room. Call 911 if necessary. 05/03/20 0018 <Electronically signed by Vivek De Souza DO> Date Vivek De Souza DO Cosigner Signature (If Indicated): Date CC: SHEET METAL WORK FURNACE INSTALLERTracieC Dylan Velarde Start: 05-02-2020 End: 05-06-2020 12 Lead EKG Comments: See Note; NOTES: [facility] Cardiovascular Services [address] [place] [address] 12 Lead EKG 05/02/20 2241 MR#: [id number] Acct: [id number] Name: DOUG FLANAGAN Rep #: [id number] : 1990 From: Compa Healy MD Attending Dr: Status: DEP ER Ordering Dr: Vivek De Souza DO Date: 05/02/20 Location: ED Sex: F C Admitted: Test Reason : SOB Blood Pressure : / mmHG Vent. Rate : 093 BPM Atrial Rate : 093 BPM P-R Int : 170 ms QRS Dur : 078 ms QT Int : 342 ms P-R-T Axes : 062 048 054 degrees QTc Int : 425 ms Normal sinus rhythm Normal ECG Confirmed by COMPA HEALY MD ([id number]), editorial project manager SALOME MENJIVAR ([id number]) on 05/06/2020 9:04:20 AM Referred By: WALLY Confirmed By:COMPA HEALY MD 05/06/20 0904 Date Compa Healy MD CC: SHEET METAL WORK FURNACE INSTALLER-C Dylan Velarde; Dr. Vivek De Souza, Signed Dylan Velarde Start: 10-10-2019 End: 10-10-2019 Emergency Department Summary Comments: See Note; NOTES: [facility] Medical Records Department [address] [place] [address] Emergency Department Summary 10/10/19 MR#: [id number] Acct: [id number] Name: DOUG FLANAGAN Rep #: [id number] : 1990 29 From: Naomi Durbin DO PCP: BECCA Angulo Status:REG ER - ER Visit Summary Date of Service: 10/10/19 Chief Complaint: [Nausea vomiting and dizziness] History of Present Illness: The patient is a 29 F [presents the emergency department with complaint of not feeling well for last several days. Patient states that she was recently admitted to this hospital 5 days ago for seizure and then was transferred over to [facility]. Patient had her Trileptal increased and was told to take it in evening and in the morning as well. Patient states that she feels like she is drunk and has had some double vision. Patient started having multiple episodes of emesis today. Denies any recent illness otherwise. She also complains of a headache. She called her neurologist Dr. Gerald Gilmore who advised them to come in and be evaluated. She denies any abdominal pain. She denies urinary symptoms. Patient has history of myasthenia gravis as well as seizures.] Physical Examination: [HEENT-PERRLA, EOMI. Cranial nerves II through XII grossly intact. TMs clear. Mucous membranes moist. No adenopathy. Cardiovascular-regular rate and rhythm without murmur or ectopy Lungs-clear to auscultation, chest wall stable without crepitus or subcu emphysema Abdomen-normoactive bowel sounds, soft, nontender, no rebound or rigidity, no peritoneal signs. Neuro gvrm-kuyuiz-ol-nose and heel peters testing within normal limits, negative Romberg, negative for drift, fundi benign Extremities-intact ???4, normal range of motion, normal pulses, atraumatic] Test Results: [CBC with differential unremarkable. Chemistries unremarkable. LFTs were normal. hCG was negative.] Emergency Department Course and Treatment: [Patient had an IV line established. She was given normal saline. Patient was treated with Narcan as well as Antivert and Valium. Treatment Plan: [Patient will be discussed with hospitalist to evaluate for admission. Patient's Trileptal levels will not return today and it is possible she may be toxic from that. Patient believes the extra Trileptal is causing her symptoms.] Disposition: [Admit] Impression: [Vomiting Vertigo] This note was generated with Foody dictation software. It may contain incorrect words, spelling, and punctuation that were not noted in review of the chart prior to signing ED Disposition - Plan for ED Patient: Referrals: Dylan Velarde, BECCA [Primary Care Provider] - What to do if you have Problems For any increased pain, shortness of breath, bleeding, nausea or vomiting, chest pain, or any unexpected problems, contact your Primary Care Provider. Call [facility] ([phone]) or report to the closest Emergency Room. Call 911 if necessary. 10/10/19 1500 <Electronically signed by Naomi Durbin DO> Date Naomi Durbin DO Cosigner Signature (If Indicated): Date CC: BECCA Velarde Start: 10-08-2019 Basic metabolic panel calcium total Meghan Singam Work Phone: Start: 10-07-2019 Urine test visual color cmprsn meths Khurram Kunz Work Phone: Start: 10-07-2019 Urnls dip stick/tablet rgnt auto w/o microscopy Khurram Kunz Work Phone: Start: 10-07-2019 Assay of magnesium Khurram Kunz Work Phone: Start: 10-07-2019 Blood count complete auto&auto difrntl wbc Khurram Kunz Work Phone: Start: 10-07-2019 Blood count complete automated Khurram Kunz Work Phone: Start: 10-06-2019 End: 10-07-2019 Emergency Department Summary Comments: See Note; NOTES: [facility] Medical Records Department [address] [place] [address] Emergency Department Summary 10/06/19 MR#: [id number] Acct: [id number] Name: DOUG FLANAGAN Rep #: [id number] : 1990 29 From: Jhon Priest DO PCP: BECCA Angulo Status:REG ER - ER Visit Summary Date of Service: 10/06/19 Chief Complaint: Seizure History of Present Illness: The patient is a 29 F who presents with a seizure that occurred today. Patient was seen here earlier today for breakthrough seizure. Mother witnessed the seizure today. Mother states it lasted approximately 2 minutes and was generalized tonic-clonic seizure. Patient takes Lamictal for her seizures and states she has not missed any doses. Patient had an infusion yesterday for her myasthenia. Patient states she normally feels tired the day after her infusion. Patient was feeling more tired than usual today. Mother states that the patient was having more confusion prior to the seizure which she normally does not have. Mother states that earlier today the patient told her that she had a dream this morning where she thought she was having a seizure and the mother is unsure if this truly was a seizure in her sleep. Patient still complains of a headache. Physical Examination: Vital signs are stable. Patient is afebrile. Patient is in no acute distress. Oral mucosa is pink and moist. There is still some mild ecchymosis on the lateral aspect of her tongue bilaterally. There are no lacerations noted. Neck is supple. Trachea is midline. There is no JVD noted. Heart was regular rate and rhythm. Lungs are clear and equal bilaterally. Abdomen is soft. Bowel sounds are normal. There is no tenderness. There is no rebound or guarding noted. Skin is warm dry. Cranial nerves II through XII are intact. There are no focal motor or sensory deficits noted. Extremities are intact. There is no calf tenderness or edema. Test Results: CBC showed leukocytosis of 15.9. Metabolic profile was essentially within normal limits except for mild hypokalemia of of 3.2. Serum hCG was negative. CT scan of the brain was obtained. There is no acute intracranial abnormality. This was interpreted by the radiologist and reviewed by myself. Emergency Department Course and Treatment: Patient was being monitored here in the emergency department. Patient had a another generalized tonic-clonic seizure. This stopped after approximately 1 minute. Patient was postictal. Patient was given a dose of Depacon. Case was discussed with the hospitalist. She recommended transferring the patient to a tertiary care facility for further evaluation. Family requested to go to hospital where Dr. Gilmore can see her. The patient was transferred to [facility]. Patient was accepted to the service of Dr. Kunz. Mother and patient understood and were agreeable with the plan. All questions were answered. Disposition: Transfer to [facility] Impression: 1. Breakthrough seizures 2. History of myasthenia gravis This note was generated with Foody dictation software. It may contain incorrect words, spelling, and punctuation that were not noted in review of the chart prior to signing ED Disposition - Plan for ED Patient: Disposition: [facility] Diagnosis: Breakthrough seizure, Myasthenia Referrals: Dylan Velarde, BECCA [Primary Care Provider] - What to do if you have Problems For any increased pain, shortness of breath, bleeding, nausea or vomiting, chest pain, or any unexpected problems, contact your Primary Care Provider. Call [facility] ([phone]) or report to the closest Emergency Room. Call 911 if necessary. 10/07/19 0011 <Electronically signed by Jhon Priest DO> Date Jhon Priest DO Cosigner Signature (If Indicated): Date CC: BECCA Velarde Start: 10-06-2019 End: 10-06-2019 Brain/Head without Contrast Comments: See Note; NOTES: [facility] Imaging Services [address] [place] [address] Brain/Head without Contrast MR#: [id number] Acct: [id number] Name: DOUG FLANAGAN Rep #: [id number] : 1990 F 29 From: Alfa Mast i, MD PCP: BECCA Angulo Status: REG ER Study: Brain/Head without Contrast Date of Exam: 09/19 Exam# [id number] Ordering Dr: Jhon Priest DO STUDY: CT BRAIN WITHOUT CONTRAST REASON FOR EXAM: Female, 29 years old. SEIZURE, HX SEIZURES IN PAST RADIATION DOSAGE (If Supplied By Facility): CTDIvol = ( 44.99 ) mGy, DLP = ( 796.11 ) mGycm TECHNIQUE: Transaxial CT imaging of the brain was performed without administration of intravenous contrast material. Individualized dose optimization techniques were used for this CT. COMPARISON: Previous study of 01/07/2018 FINDINGS: Normal soft tissue structures. Normal calvarium. Normal size ventricles and extra-axial spaces for the patient''s age. Normal white matter tracts of the cerebral hemispheres. Normal basal ganglia and thalami. Normal brainstem. Normal cerebellum. There is no intracranial hemorrhage. There are no findings of an acute ischemic infarction. Normal visualized paranasal sinuses. CT/Brain/Head without Contrast IMPRESSION: Normal unenhanced CT scan of the brain. Electronically Signed: Alfa Wright MD at 20:56 EDT , Service support , CC: BECCA Velarde; Dr. Jhon Priest DO Hosiery Mater: Signed Dylan Velarde Start: 10-06-2019 End: 10-07-2019 Emergency Department Summary Comments: See Note; NOTES: [facility] Medical Records Department [address] [place] [address] Emergency Department Summary 10/06/19 MR#: [id number] Acct: [id number] Name: DOUG FLANAGAN Rep #: [id number] : 1990 29 From: Jhon Priest DO PCP: BECCA Angulo Status:DEP ER - ER Visit Summary Date of Service: 10/06/19 Chief Complaint: Seizure History of Present Illness: The patient is a 29 F who presents with seizure that occurred today. Mother witnessed the seizure and states it lasted approximately 3 minutes. Mother states that this was typical of her prior seizures but did not last quite as long. Mother describes as generalized tonic-clonic seizure. Patient does not think she bit her tongue. Patient denies any incontinence of stool or urine. Patient admits to a mild headache. Patient reports that she had an infusion for her myasthenia gravis yesterday. Patient states that usually the day after her infusions she is more tired than usual. Physical Examination: Vital signs are stable. Patient is afebrile. Patient is in no acute distress. Oral mucosa is pink and moist. There is some mild ecchymosis on the lateral aspect of the tongue bilaterally. There are no abrasions or lacerations. There is no bleeding. There are no abrasions of the oral mucosa. Neck is supple. Trachea is midline. There is no JVD noted. Heart was regular rate and rhythm. Lungs are clear and equal bilaterally. Abdomen is soft. Bowel sounds are normal. There is no tenderness. There is no rebound or guarding noted. Skin is warm dry. Cranial nerves II through XII are intact. There are no focal motor or sensory deficits noted. Extremities are intact. There is no calf tenderness or edema. Test Results: A Lamictal level was ordered. This is a send out test. Emergency Department Course and Treatment: Patient was given IV fluids and Tylenol for her headache. Patient was observed in the emergency department. Patient had no further seizure activity. Patient and her mother were advised that this is most likely a single breakthrough seizure. This may not be related to her infusion. Patient follows up with Dr. Gilmore for neurology. Patient was instructed to follow-up with him in 3 to 5 days. Patient was instructed to return if worse in any way. Patient and mother understood and were agreeable with the plan. All questions were answered. Disposition: Discharge home Impression: 1. Breakthrough seizure This note was generated with Foody dictation software. It may contain incorrect words, spelling, and punctuation that were not noted in review of the chart prior to signing ED Disposition - Plan for ED Patient: Disposition: Home or Assisted Living Diagnosis: Breakthrough seizure Instructions: ED Seizure Recurrent Adult Referrals: Dylan Velarde NP-C [Primary Care Provider] - 3-5 Days Gerald Gilmore MD [STAFF PHYSICIAN] - 3-5 Days What to do if you have Problems For any increased pain, shortness of breath, bleeding, nausea or vomiting, chest pain, or any unexpected problems, contact your Primary Care Provider. Call [facility] ([phone]) or report to the closest Emergency Room. Call 911 if necessary. 10/07/19 0011 <Electronically signed by Jhon Priest DO> Date Jhon Priest DO Cosigner Signature (If Indicated): Date CC: BECCA Bakerjeffreyhetaher Start: 03-26-2019 End: 03-26-2019 History and Physical Exam Comments: See Note; NOTES: [facility] Medical Records Department [address] [place] [address] History and Physical 03/26/192137 MR#: [id number] Acct: [id number] Name: DOUG FLANAGAN Rep #: [id number] : 1990 28 From: Bruna Garcia MD PCP: BECCA Angulo Status: REG ER Y Location: ED Problem List (1) Breakthrough seizure Status: Acute (2) Hypokalemia Status: Acute (3) Myasthenia Status: Chronic (4) Epilepsy Status: Chronic Qualifiers: Epilepsy type: unspecified History of Present Illness Date of Admission: 03/26/19 Chief Complaint: Breakthrough seizure The patient is a 28 y/o F w/ PMHx: Epilepsy, Myasthenia gravis who presents to the [facility] ED on 03/26/19 with history of breakthrough seizure prior to ED presentation, witnessed per family noted to have last approximately 30 seconds at approximately 6 PM with no loss of bowel or bladder but tongue biting with upper and lower extremity stiffness with no specifically noted movement of her eyes with fatigue and lethargy following with recurrent seizure while in the ED lasting less than 2 minutes, similar to appearance with recurrent postictal state following with most recent prior breakthrough seizure in January and prior to this in April of the year prior, following with Dr. Gilmore. Mother is present and does note that she feels as though her daughter was intimately confused during the day, generally. Patient denies any recent illnesses, nausea, emesis, diarrhea, abdominal pain, dysuria, headaches, fevers or chills. Work-up in the ED included T 97.7, heart rate 107, BP 121/75, respiratory rate 18, 99% on room air, CBC with WC 15.2, heme globin 12.8, platelet 261 with left shift, CMP with potassium 3.2, chloride 114, carbon dioxide 16, glucose 154, serum negative, pending lamotrigine level requested evaluation. Past Medical History Past Medical History (Chronic Problems): Chronic Problems Myasthenia (Chronic) Epilepsy (Chronic) Allergies levetiracetam [From Keppra] Allergy (Verified 05/04/18 12:41) Other Penicillins Allergy (Verified 05/04/18 12:41) Rash Home Medications: Ambulatory Orders Medication Instructions Recorded Lamotrigine [Lamictal] 200 mg PO BREAKFAST 12/23/17 Zonisamide 200 mg PO BREAKFAST 12/23/17 Lorazepam [Ativan] 1 mg PO DAILY PRN PRN 01/07/18 Surgical History: - - Thymectomy, appendectomy. 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 Alcohol: None Drugs: None - *Family History Maternal History Items: - - Patient and family present denies any market maternal or paternal family history including heart disease, diabetes, cancer, seizures. Paternal History Items: - - Patient and family present denies any market maternal or paternal family history including heart disease, diabetes, cancer, seizures. Review of Systems Constitutional: Reports: Malaise, Weakness, Fatigue. Denies: Chills, Fever, Weight Change HEENT: Denies: Head Aches, Sinus Congestion, Sinus Drainage Cardiovascular: Denies: Chest Pain, Palpitations Respiratory: Denies: Cough, Shortness of breath at rest, Sputum production Gastrointestinal: Denies: Abdominal Pain, Nausea, Vomiting Genitourinary: Denies: Dysuria Musculoskeletal: Reports: Muscle pain. Denies: Joint Pain, Joint Tenderness Skin: Denies: Rash, Wounds Neurological: Reports: Confusion, Seizures. Denies: Focal weakness, Numbness, Tingling Psychiatric: Denies: Anxiety, Depression, Homicidal Ideations, Suicidal Ideations Hematologic/ Lymphatic: Denies: Easy Bruising, Easy Bleeding VTE Information - Inpt Only VTE Present on Admission: No VTE Mechan Device Prophylaxis: None VTE Pharm Prophylaxis ordered?: No Reason prophylaxis not ordered:: Treatment Not Indicated Patient Problems: Active and Suspected Problems Breakthrough seizure (Acute) Hypokalemia (Acute) Subjective: Seated upright in ED bed, very fatigued appearance, more alert and oriented x3 now. Objective: Physical Examination: General: awake, alert, oriented x 3 and cooperative, remarkably fatigued appearance, seated upright in the ED bed in no apparent distress. Skin: normal color, turgor, no icterus, cyanosis. HEENT: AT/NC, EOMI, PERRLA, dry MM, noted lateral tongue bites with bruising, no active bleeding, no carotid bruits or JVD noted. Lungs: CTA bilaterally, moderate effort, mild decrease BL bases, no rales, ronchi or wheezing. Heart: Regular rate and rhythm; no gallop, rub audible. Abdomen: soft, thin habitus, NTTP, ND, normal BS, no HSM. Extremities: no cyanosis, clubbing, or edema. Neurological: patient awake, alert, oriented x 3, markedly improved following postictal phase; cognitive function appears to have returned to baseline although mother does state that she had been confused throughout the day; pupils equally reactive to light and accomodation; cranial nerves II-XII grossly normal, moving all 4 extremities, no focal deficits, strength preserved however given acute presentation globally weak, moderately. Psychiatric: affect appears fatigued, flat, no acute evidence of depressive or anxiety feelings. - Physical Exam Vitals/I AND O's: Vital Signs Temp Pulse Resp BP Pulse Ox 97.7 F L 109 H 15 106/58 L 99 03/26/19 18:10 03/26/19 20:25 03/26/19 20:25 03/26/19 20:25 03/26/19 20:25 Oxygen Delivery Method Room Air Weight: 5 lb 3 oz Body Mass Index (BMI) 0.0 Finger Stick Blood Glucose 99 Laboratory Results 03/26/19 19:31: Sodium 142, Potassium 3.2 L, Chloride 114 H, Carbon Dioxide 16.0 L, Anion Gap 12, BUN 10, Creatinine 0.91, Estim Creat Clear Calc 3.36, Est GFR (MDRD) Af Amer 93, Est GFR (MDRD) Non-Af 76, BUN/Creatinine Ratio 10.9, Glucose 154 H, Calcium 8.4 L, Total Bilirubin 0.30, AST 16, ALT 14, Alkaline Phosphatase 74, Total Protein 7.1, Albumin 4.0, Globulin 3.1, Albumin/Globulin Ratio 1.3 03/26/19 19:35: WBC 15.2 H, RBC 4.45, Hgb 12.8, Hct 39.9, MCV 89.7, MCH 28.8, MCHC 32.1, RDW Std Deviation 41.9, RDW Coeff of Mariella 12.9, Plt Count 261, MPV 9.9, Immature Gran % (Auto) 0.700, Neut % (Auto) 77.8 H, Lymph % (Auto) 15.0 L, Whiteside % (Auto) 5.6, Eos % (Auto) 0.6, Baso % (Auto) 0.3, Absolute Neuts (auto) 11.8 H, Absolute Lymphs (auto) 2.27, Nucleated RBC % 0 03/26/19 19:35: Serum , Qual NEGATIVE 03/26/19 19:35: Lamotrigine Pending Assessment/Plan All Active Problems Slurred speech (Acute) Arm weakness (Acute) Breakthrough seizure (Acute) Hypokalemia (Acute) The patient is a 28 y/o F w/ PMHx: Epilepsy, Myasthenia gravis who presents to the [facility] ED on 03/26/19 with history of breakthrough seizure prior to ED presentation, witnessed per family noted to have last approximately 30 seconds at approximately 6 PM with no loss of bowel or bladder but tongue biting with upper and lower extremity stiffness with no specifically noted movement of her eyes with fatigue and lethargy following with recurrent seizure in the ED. 1. Breakthrough seizure with history of epilepsy: Seizure witnessed with postictal state both at home and while in the ED. Improved mental status in the emergency room. Will admit to PCU, maintain on telemetry in PCU on seizure precautions, given several breakthrough seizures now will obtain EEG as well as brain MRI, obtain TSH and magnesium level, requested urine drug screen also. Will place on Dilantin IV with load given Keppra noted allergy, continuation of Zonegran, Lamictal regimen. Pending Neurology consultation. PRN ativan IV for seizure activity. 2. Hyperglycemia: Admission glucose 154, likely stress response, hemoglobin A1c pending. 3. Hypokalemia: Admission K+ 3.2, supplementation given, repeat level in AM. 4. Myasthenia gravis: We will continue patient home Mestinon regimen. 5. DVT prophylaxis: Low risk. Code Visit Inpatient E AND M: 41372 Init Hosp L3 03/26/192237 <Electronically signed by Bruna Garcia MD> Date Bruna Garcia MD Cosigner Signature: Date (if applicable) CC: BECCA Velarde; Bruna Garcia MD Signed Dylan Velarde Start: 12-22-2018 End: 12-22-2018 Discharge Instruction Comments: See Note; NOTES: [facility] Medical Records Department [address] [place] [address] Discharge Instruction 12/22/18 1806 MR#: [id number] Acct: [id number] Name: DOUG FLANAGAN Rep #: [id number] : 1990 28 From: Ant Philippe MD PCP: BECCA Angulo Status: REG ER ED Disposition - Plan for ED Patient: Disposition: Home or Assisted Living Instructions: SEIZURE, Recurrent [Adult] Referrals: Dylan Velarde NP-C [Primary Care Provider] - What to do if you have Problems For any increased pain, shortness of breath, bleeding, nausea or vomiting, chest pain, or any unexpected problems, contact your Primary Care Provider. Call [facility] ([phone]) or report to the closest Emergency Room. Call 911 if necessary. 12/22/181805 <Electronically signed by Ant Philippe MD> Date Ant Philippe MD Cosigner Signature (If Indicated): Date CC: BECCA Velarde Start: 12-22-2018 End: 12-22-2018 Emergency Department Summary Comments: See Note; NOTES: [facility] Medical Records Department [address] [place] [address] Emergency Department Summary 12/22/18 180 MR#: [id number] Acct: [id number] Name: DOUG FLANAGAN Rep #: [id number] : 1990 28 From: Ant Philippe MD PCP: BECCA Angulo Status: REG ER - ER Visit Summary Date of Service: 12/22/18 Chief Complaint: Seizure History of Present Illness: The patient is a 28 F who presents after having a seizure. She has a history of seizures in the past and takes Zonegran and Lamictal. She has been medication compliant. She had a tonic-clonic seizure today that lasted between 2 and 4 minutes. Her neurologist is Dr. Gilmore. She denies any recent illnesses except for some allergy-like symptoms. She took a Cold-roseline this morning to help with her symptoms. She has been under a lot of stress this week which may have contributed to her seizure. Her last seizure was a year ago. She has a history of myasthenia gravis and had a thymectomy last year. Physical Examination: Vital signs reviewed. HEENT exam unremarkable. Heart is regular rate and rhythm without murmurs. Lungs are clear to auscultation. Abdomen is soft and nontender. Extremities reveal some slight tenderness to the right patella. She does have some ecchymosis to this area. She also has a small abrasion over the patella on the right knee. Her extensor mechanism is intact. Neurologic exam normal. Test Results: Laboratory studies are unremarkable except for potassium 3.4, chloride 111, bicarb 20. Urinalysis is negative. negative. Chest x-ray reveals nothing acute as well. Emergency Department Course and Treatment: She has a normal neurologic exam currently. I do not feel she needs a new head CT scan since she has a history of seizures. She feels back to baseline. The patient was given Tylenol for her knee pain. This is likely a contusion and I do not feel she needs an x-ray. Patient will be discharged to follow-up with her neurologist. Treatment Plan: [] Disposition: Discharge Impression: Seizure, right patella contusion This note was generated with Foody dictation software. It may contain incorrect words, spelling, and punctuation that were not noted in review of the chart prior to signing ED Disposition - Plan for ED Patient: Referrals: Dylan Velarde, SHEET METAL WORK FURNACE INSTALLER-C [Primary Care Provider] - What to do if you have Problems For any increased pain, shortness of breath, bleeding, nausea or vomiting, chest pain, or any unexpected problems, contact your Primary Care Provider. Call [facility] ([phone]) or report to the closest Emergency Room. Call 911 if necessary. 12/22/18 7535 <Electronically signed by Ant Philippe MD> Date Ant Philippe MD Cosigner Signature (If Indicated): Date CC: SHEET METAL WORK FURNACE INSTALLERLd Cavazos Mable Velarde Start: 12-22-2018 End: 12-22-2018 Chest 1 View (Portable) Comments: See Note; NOTES: [facility] Imaging Services [address] [place] [address] Chest 1 View (Portable) MR#: [id number] Acct: [id number] Name: ROBERT FLANAGANEMILIE BRADLEY Rep #: [id number] : 1990 F 28 From: Samia Mosley DO PCP: BECCA Angulo Status: REG ER Study: Chest 1 View (Portable) Date of Exam: 12/22/18 Exam# [id number] Ordering Dr: Ant Philippe MD HISTORY:seizure seizure EXAM: XR Chest 1 View: COMPARISON: May 04, 2018 FINDINGS: # of images incl. paperwork: 1 LINES/DEVICES: None. LUNGS: Radiographically clear. No consolidation, edema or effusion. No pneumothorax. MEDIASTINUM AND CARDIOVASCULAR STRUCTURES: Cardiac silhouette not enlarged. BONES AND SOFT TISSUES: Unremarkable. RAD/Chest 1 View (Portable) IMPRESSION: No radiographic evidence of acute cardiopulmonary disease. at 1702 Reported and signed by: Samia Mosley DO Electronically Signed: Samia Mosley DO at 17:01 EDT Tel , Service support , CC: BECCA Velarde; Ant Philippe MD Hosiery Mater: Signed Dylan Biheather Start: 07-08-2018 End: 07-10-2018 Chest without Contrast Comments: See Note; NOTES: [facility] Imaging Services [address] [place] [address] Chest without Contrast MR#: [id number] Acct: [id number] Name: DOUG FLANAGAN Parvez Rep #: [id number] : 1990 F 27 From: Oscar Olson MD PCP: Dylan Velarde NP Status: REG CLI Study: Chest without Contrast Date of Exam: 07/08/18 Exam# [id number] Ordering Dr: Gerald Gilmore MD STUDY: CT CHEST WITHOUT CONTRAST REASON FOR EXAM: Female, 27 years old. Thymoma RADIATION DOSAGE (If Supplied By Facility): CTDIvol = ( 6.61 ) mGy, DLP = ( 213.02 ) mGycm TECHNIQUE: Transaxial imaging was performed without the administration of intravenous contrast material. Individualized dose optimization techniques were used for this CT. COMPARISON: 04/15/2018 FINDINGS: Interval development of minimal peripheral alveolar disease in the left lower lobe. This could be related to infection or inflammation. There is no demonstrated pleural abnormality. Normal heart and pericardium. Stable soft tissue in the upper anterior mediastinum measuring 20 x 18 mm on image 39 of series 2. A small thymoma could have this CT appearance. Normal hilar regions. Normal unenhanced pulmonary arteries. Normal aorta arch and descending thoracic aorta. Normal osseous structures. There is no demonstrated abnormality of the visualized upper abdomen. CT/Chest without Contrast IMPRESSION: Stable soft tissue in the upper anterior mediastinum. A small thymoma could have this appearance. Adjacent structures are normal. Interval development of minimal peripheral alveolar disease in the left lower lobe. This could be related to infection or inflammation. Electronically Signed: Oscar Olson MD at 4:22 EDT Tel , Service support , CC: Dylan Velarde SHEET METAL WORK FURNACE INSTALLER; Gerald Gilmore MD Hosiery Mater: Signed Dylan Velarde Start: 05-06-2018 End: 05-06-2018 12 lead ECG Comments: See Note; NOTES: [facility] Cardiovascular Services [address] [place] [address] 12 Lead EKG 05/04/18 1333 MR#: [id number] Acct: [id number] Name: DOUG FLANAGAN Rep #: [id number] : 1990 27 From: Zina Randhawa MD Attending Dr: Status: DEP ER Ordering [...] Normal sinus rhythm Normal ECG Confirmed by ZINA RANDHAWA MD ([id number]), editorial project manager FELIX RAMOS ([id number]) on 05/06/2018 2:38:02 PM Referred By: DERIK Confirmed By:ZINA RANDHAWA MD 05/06/18 1438 Date Zina Randhawa MD CC: Dylan Velarde NP; Jhon Priest DO Signed Dylan Velarde Start: 05-04-2018 End: 05-04-2018 Emergency Department Summary Comments: See Note; NOTES: [facility] Medical Records Department [address] [place] [address] Emergency Department Summary 05/04/18 1525 MR#: [id number] Acct: [id number] Name: DOUG FLANAGAN Rep #: [id number] : 1990 27 From: Jhon Priest DO PCP: Dylan Velarde NP Status: DEP ER - ER Visit [...] Chest pain This note was generated with Food[employer] dictation software. It may contain incorrect words, spelling, and punctuation that were not noted in review of the chart prior to signing ED Disposition - Plan for ED Patient: Disposition: Home or Assisted Living Chief Complaint: General Illness Diagnosis: Chest pain of uncertain etiology, Myasthenia gravis Instructions: Discharge Instructions for Myasthenia Gravis, ED Chest Pain Atypical Unkn Cause Referrals: Dylan Velarde NP-C [Primary Care Provider] - What to do if you have Problems For any increased pain, shortness of breath, bleeding, nausea or vomiting, chest pain, or any unexpected problems, contact your Primary Care Provider. Call [facility] ([phone]) or report to the closest Emergency Room. Call 911 if necessary. 05/04/18 1803 <Electronically signed by Jhon Priest DO> Date Jhon Priest DO Cosigner Signature (If Indicated): Date CC: Dylan Velarde NP Dylan Patheather Start: 05-04-2018 End: 05-04-2018 Chest PA and Lateral Comments: See Note; NOTES: [facility] Imaging Services [address] [place] [address] Chest PA and Lateral MR#: [id number] Acct: [id number] Name: DOUG FLANAGAN Rep #: [id number] : 1990 F 27 From: Mitchel Conrad MD PCP: Dylan Velarde NP Status: REG ER Study: Chest PA and Lateral Date of Exam: 05/04/18 Exam# [id number] Ordering Dr: Jhon Priest DO STUDY: X-RAY [...] Mitchel Conrad MD at 13:42 EST Tel [phone], Service support , CC: Dylan Velarde NP; Jhon Priest DO Hosiery Mater: Signed Dylan Velarde Start: 04-15-2018 End: 04-16-2018 Chest without Contrast Comments: See Note; NOTES: [facility] Imaging Services [address] [place] [address] Chest without Contrast MR#: [id number] Acct: [id number] Name: DOUG FLANAGAN Rep #: [id number] : 1990 F 27 From: Zach Mercado MD PCP: Dylan Velarde NP Status: REG CLI Study: Chest without Contrast Date of Exam: 04/15/18 Exam# [id number] Ordering Dr: Lizz Hu NP-C STUDY: CT CHEST WITHOUT CONTRAST REASON FOR [...] 23:47 EST , Service support , CC: Dylan Velarde NP; DASHA Hu Hosiery Mater: Signed Dylan Velarde Start: 02-15-2018 End: 02-16-2018 Chest PA and Lateral Comments: See Note; NOTES: [facility] Imaging Services [address] [place] [address] Chest PA and Lateral MR#: [id number] Acct: [id number] Name: DOUG FLANAGAN Rep #: [id number] : 1990 F 27 From: Dejuan Chase MD PCP: Dylan Velarde NP Status: REG CLI Study: Chest PA and Lateral Date of Exam: 02/15/18 Exam# [id number] Ordering Dr: Lizz Hu SHEET METAL WORK FURNACE INSTALLER-C STUDY: X-RAY CHEST REASON FOR EXAM: Female, [...] EDT Tel , Service support , CC: Dylan Velarde NP; DASHA Hu Hosiery Mater: Signed Dylan Velarde Start: 02-14-2018 End: 02-14-2018 Consultation Comments: See Note; NOTES: [facility] Medical Records Department [address] [place] [address] Consultation 02/11/18 1401 MR#: [id number] Acct: [id number] Name: DOUG FLANAGAN Rep #: [id number] : 1990 27 From: Ashly Morgan MD PCP: Dylan Velarde NP Status: DEP ER Y Location: ED [...] [facility] by [facility] Hua from [facility] for epilepsy in the past, was [...] [facility] by [facility] from [facility] for epilepsy in the past, was [...] patient's care and management. Code Visit Inpatient Parvez AND M: [id number] Init Hosp L3 02/14/18 1117 <Electronically signed by Ashly Morgan MD> Date Ashly Morgan MD Cosigner Signature (if applicable): Date CC: Dylan Velarde SHEET METAL WORK FURNACE INSTALLER Signed Dylan Velarde Start: 02-11-2018 End: 02-11-2018 Emergency Department Summary Comments: See Note; NOTES: [facility] Medical Records Department [address] [place] [address] Emergency Department Summary 02/11/18 1655 MR#: [id number] Acct: [id number] Name: DOUG FLANAGAN Rep #: [id number] : 1990 27 From: Naomi Durbin DO PCP: Dylan Velarde NP Status: DEP ER - ER Visit [...] rebound or rigidity, no peritoneal signs. Neuro fgns-prqxut-dobr and heel peters testing within normal limits, [...] weakness-etiology uncertain] This note was generated with Food[employer] dictation software. It may contain incorrect words, spelling, and punctuation that were not noted in review of the chart prior to signing ED Disposition - Plan for ED Patient: Chief Complaint: Weakness Instructions: ED Weakness [facility] Referrals: Gerald Gilmore MD [STAFF PHYSICIAN] - 3-5 Days Dylan Velarde NP-C [Primary Care Provider] - What to do if you have Problems For any increased pain, shortness of breath, bleeding, nausea or vomiting, chest pain, or any unexpected problems, contact your Primary Care Provider. Call [facility] ([phone]) or report to the closest Emergency Room. Call 911 if necessary. 02/11/18 1700 <Electronically signed by Naomi Durbin DO> Date Naomi Durbin DO Cosigner Signature (If Indicated): Date CC: Dylan Velarde Start: 02-11-2018 End: 02-11-2018 Discharge Instruction Comments: See Note; NOTES: [facility] Medical Records Department [address] [place] [address] Discharge Instruction 02/11/181652 MR#: [id number] Acct: [id number] Name: DOUG FLANAGAN Rep #: [id number] : 1990 27 From: Naomi Durbin DO PCP: Dylan Velarde NP Status: DEP ER ED Disposition - Plan for ED Patient: Chief Complaint: Weakness Instructions: ED Weakness [facility] Referrals: Dylan Velarde NP-C [Primary Care Provider] - Gerald Gilmore MD [STAFF PHYSICIAN] - 3-5 Days What to do if you have Problems For any increased pain, shortness of breath, bleeding, nausea or vomiting, chest pain, or any unexpected problems, contact your Primary Care Provider. Call [facility] ([phone]) or report to the closest Emergency Room. Call 911 if necessary. 02/11/181654 <Electronically signed by Naomi Durbin DO> Date Naomi Durbin DO Cosigner Signature (If Indicated): Date CC: Dylan Velarde Start: 02-11-2018 End: 02-11-2018 Spine Cervical (Routine) Comments: See Note; NOTES: [facility] Imaging Services [address] [place] [address] Spine Cervical (Routine) MR#: [id number] Acct: [id number] Name: DUOG FLANAGAN Rep #: [id number] : 1990 F 27 From: Tessie Peacock MD PCP: Dylan Velarde NP Status: REG Study: Spine Cervical (Routine) Date of Exam: 02/11/18 Exam# [id number] Ordering Dr: Ashly Morgan MD STUDY: MRI [...] EDT Tel , Service support , CC: Dylan Velarde NP; Juwan Morgan MD Hosiery Mater: Signed Dylan Hannon Oliviajeffreyheather Work Phone: Start: 02-11-2018 End: 02-11-2018 Brain W/WO Contrast Comments: See Note; NOTES: [facility] Imaging Services [address] [place] [address] Brain W/WO Contrast MR#: [id number] Acct: [id number] Name: DOUG FLANAGAN Rep #: [id number] : 1990 F 27 From: Tessie Peacock MD PCP: Dylan Velarde NP Status: REG ER Study: Brain W/WO Contrast Date of Exam: 02/11/18 Exam# [id number] Ordering Dr: Naomi Durbin DO STUDY: MRI [...] EDT Tel , Service support , CC: Dylan Velarde NP; Naomi Durbin DO Hosiery Mater: Signed yDlan Velarde Start: 01-07-2018 End: 01-07-2018 Discharge Instruction Comments: See Note; NOTES: [facility] Medical Records Department [address] [place] [address] Discharge Instruction 01/07/18640 MR#: [id number] Acct: [id number] Name: DOUG FLANAGAN Rep #: [id number] : 1990 27 From: Naomi Durbin DO PCP: Dylan Velarde NP Status: REG ER ED Disposition - Plan for ED Patient: Chief Complaint: Seizure Instructions: ED Seizure Recurrent Referrals: Dylan Velarde [Primary Care Provider] - Additional Instructions: Call Dr. Gilmore to discuss possible medication changes What to do if you have Problems For any increased pain, shortness of breath, bleeding, nausea or vomiting, chest pain, or any unexpected problems, contact your Primary Care Provider. Call [facility] ([phone]) or report to the closest Emergency Room. Call 911 if necessary. 01/07/18 0642 <Electronically signed by Naomi Durbin DO> Date Naomi Durbin DO Cosigner Signature (If Indicated): Date CC: Dylan Velarde Start: 01-07-2018 End: 01-07-2018 Emergency Department Summary Comments: See Note; NOTES: [facility] Medical Records Department [address] [place] [address] Emergency Department Summary 01/07/18 0636 MR#: [id number] Acct: [id number] Name: DOUG FLANAGAN Rep #: [id number] : 1990 27 From: Naomi Durbin DO PCP: Dylan Velarde NP Status: REG ER - ER Visit [...] rebound or rigidity, no peritoneal signs. Neuro bzxd-yjdhvg-ysra and heel peters testing within normal limits, [...] [Recurrent seizure] This note was generated with [employer] State [employer] software. It may contain incorrect words, spelling, and punctuation that were not noted in review of the chart prior to signing ED Disposition - Plan for ED Patient: Chief Complaint: Seizure Referrals: Dylan Velarde [Primary Care Provider] - What to do if you have Problems For any increased pain, shortness of breath, bleeding, nausea or vomiting, chest pain, or any unexpected problems, contact your Primary Care Provider. Call [facility] ([phone]) or report to the closest Emergency Room. Call 911 if necessary. 01/07/18 0640 <Electronically signed by Naomi Durbin DO> Date Naomi Durbin DO Cosigner Signature (If Indicated): Date CC: Dylan Velarde Start: 01-07-2018 End: 01-07-2018 Brain/Head without Contrast Comments: See Note; NOTES: [facility] Imaging Services [address] [place] [address] Brain/Head without Contrast MR#: [id number] Acct: [id number] Name: DOUG FLANAGAN Rep #: [id number] : 1990 F 27 From: Reid Ortega MD PCP: Dylan Velarde NP Status: REG ER Study: Brain/Head without Contrast Date of Exam: 01/07/18 Exam# [id number] Ordering Dr: Naomi Durbin DO STUDY: CT [...] EDT Tel , Service support , CC: Dylan Velarde NP; Naomi Durbin DO Hosiery Mater: Signed Dylan Velarde Start: 12-23-2017 End: 12-23-2017 Emergency Department Summary Comments: See Note; NOTES: [facility] Medical Records Department [address] [place] [address] Emergency Department Summary 12/23/17 1600 MR#: [id number] Acct: [id number] Name: DOUG FLANAGAN Rep #: [id number] : 1990 27 From: Brain Del Castillo MD PCP: Dylan Velarde NP Status: REG ER - ER Visit Summary Date of Service: 12/23/17 Chief Complaint: Pelvic right patient [facility] and sent to ER for further evaluation. [...] illness this past weekend. 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 It may contain incorrect words, spelling, and punctuation that were not noted in review of the chart prior to signing ED Disposition - Plan for ED Patient: Disposition: Home or Assisted Living Chief Complaint: Chest Pain Instructions: ED Chest Pain Pleurisy Prescriptions: Naproxen [Naprosyn] 500 mg PO BID #10 tab Referrals: Dylan Velarde [Primary Care Provider] - 1 Week if not improving What to do if you have Problems For any increased pain, shortness of breath, bleeding, nausea or vomiting, chest pain, or any unexpected problems, contact your Primary Care Provider. Call [facility] ([phone]) or report to the closest Emergency Room. Call 911 if necessary. 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 Dylan Velarde Start: 11-17-2017 Adult depression screening assessment Louise Flanagan APRN.CNM Work Phone: Start: 11-11-2017 End: 11-11-2017 Emergency Department Summary Comments: See Note; NOTES: [facility] Medical Records Department [address] [place] [address] Emergency Department Summary 11/10/17 0905 MR#: [id number] Acct: [id number] Name: MASHADOUG E Rep #: [id number] : 1990 27 From: Efrain Olguin MD PCP: Bhupendra Candelaria DO Status: DEP ER - ER Visit Summary Date of Service: 11/10/17 Chief Complaint: Headache History of Present Illness: The patient is a 27 F who sees Dylan Hua, her neurologist at [facility] for seizures. She reports that she has [...] 03, 2017. This note was generated with Foody dictation software. It may contain incorrect words, spelling, and punctuation that were not noted in review of the chart prior to signing ED Disposition - Plan for ED Patient: Disposition: Home or Assisted Living Chief Complaint: Dizziness Instructions: ED Concussion Referrals: Bhupendra Candelaria DO [Primary Care Provider] - 1 Week Gerald Gilmore MD [STAFF PHYSICIAN] - 1 Week What to do if you have Problems For any increased pain, shortness of breath, bleeding, nausea or vomiting, chest pain, or any unexpected problems, contact your Primary Care Provider. Call [facility] ([phone]) or report to the closest Emergency Room. Call 911 if necessary. 11/11/17 1117 <Electronically signed by Efrain Olguin MD> Date Efrain Olguin MD Cosigner Signature (If Indicated): Date CC: Bhupendra Candelaria DO Dylan Velarde Start: 11-10-2017 End: 11-10-2017 Brain/Head without Contrast Comments: See Note; NOTES: [facility] Imaging Services [address] [place] [address] Brain/Head without Contrast MR#: [id number] Acct: [id number] Name: DOUG FLANAGAN Rep #: [id number] : 1990 F 27 From: Mitchel Conrad MD PCP: Bhupendra Candelaria DO Status: REG ER Study: Brain/Head without Contrast Date of Exam: 11/10/17 Exam# [id number] Ordering Dr: Efrain Olguin MD STUDY: CT [...] Mitchel Conrad MD at 9:17 EDT Tel [phone], Service support , CC: Bhupendra Candelaria DO; Efrain Olguin MD Hosiery Mater: Signed Dylan Velarde Start: 11-03-2017 End: 11-03-2017 Emergency Department Summary Comments: See Note; NOTES: [facility] Medical Records Department [address] [place] [address] Emergency Department Summary 11/03/17 1449 MR#: [id number] Acct: [id number] Name: DOUG FLANAGAN Parvez Rep #: [id number] : 1990 27 From: Hill Banks MD PCP: Bhupendra Candelaria DO Status: DEP ER - ER Visit Summary Date of Service: 11/03/17 Chief Complaint: Seizure History of Present Illness: The patient is a 27 F presenting for evaluation secondary to a seizure. Patient has a underlying history of seizure disorder and is on Zonegran and Lamictal. She has had a significant amount of increased activity recently and actually traveled to [place] to [place]. She has been relatively fatigued recently, but [...] neurologist for the patient's neurologist at the [facility], they recommended outpatient follow-up. Lamictal level is still pending. At this time the patient is safe for discharge to follow-up with neurology as an outpatient. Disposition: Discharge Impression: 1. Breakthrough seizure This note was generated with [employer]ation software. It may contain incorrect words, spelling, [...] problems, contact your Primary Care Provider. Call [facility] ([phone]) or report to the closest Emergency Room. Call 911 if necessary. 11/03/17 1640 <Electronically signed by Hill Banks MD> Date Hill Banks MD Cosigner Signature (If Indicated): Date CC: Bhupendra Candelaria DO Dylan Velarde Start: 05-20-2016 End: 05-20-2016 Chest without Contrast Comments: See Note; NOTES: [facility] Imaging Services [address] [place] [address] [address] 4d Chest without Contrast MR#: [id number] Acct: [id number] Name: DOUG FLANAGAN Rep #: [id number] : 1990 F 25 From: Mitchel Conrad MD PCP: Bhupendra Candelaria DO Status: [facility] CLI Study: Chest without Contrast Date of Exam: 05/20/16 Exam# [id number] Ordering Dr: Indra Weinstein DO STUDY: CT CHEST WITHOUT CONTRAST REASON FOR EXAM: Female, 25 years old. 2 week history of cough and shortness of breath. RADIATION DOSAGE (If Supplied By Facility): CTDIvol = ( 7.97 ) mGy, DLP = ( 261.04 ) mGycm TECHNIQUE: Transaxial imaging was performed without the administration of intravenous contrast material. Multiplanar coronal and sagittal images were reformatted. Individualized dose optimization techniques were used for this CT. COMPARISON: Comparison is made with prior study dated February 21, 2015. FINDINGS: The lungs are normal. There is no demonstrated pleural abnormality. Normal heart and pericardium. Normal mediastinum. Normal hilar regions. Normal unenhanced pulmonary arteries. Normal aorta arch and descending thoracic aorta. Normal osseous structures. There is no demonstrated abnormality of the visualized upper abdomen. CT/Chest without Contrast IMPRESSION: Normal unenhanced CT Chest examination. 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 Exam performed in department. Left Ventricle Normal LV size. Left ventricular systolic function is normal. The estimated ejection fraction is 60 %. No regional wall motion abnormalities noted. Right Ventricle Normal RV size. Normal systolic function. Atria Normal left atrium. Normal right atrium. Mitral Valve Normal mitral valve. Trivial eccentric mitral valve insufficiency. Tricuspid Valve Normal tricuspid valve. Aortic Valve Normal aortic valve. Trisinus/trileaflet aortic valve. Pulmonic Valve Normal pulmonic valve. Great Vessels Normal aortic root. The [...] Measurements & Calculations MV E max jacklyn: 100.0 cm/sec Lat Peak E' Jacklyn: 22.7 cm/sec Med Peak E' Jacklyn: 15.1 cm/sec MV A max jacklyn: 56.2 cm/sec E/E' lat: 4.4 E/E' med: 6.6 MV E/A: 1.8 __ Ao V2 max: 141.7 cm/sec LV V1 max: 113.9 cm/sec PA V2 max: 128.1 cm/sec Ao max P.0 mmHg LV V1 max P.2 mmHg Interpretation Summary Normal LV size. Left ventricular systolic function is normal. The estimated ejection fraction is 60 %. Normal mitral valve. Structurally normal valves. Ordering Physician: Nihsa Brandon Performed By: Zenia Miller RDCS 05/18/16 1503 Date Compa Healy MD CC: Nisha Brandon; Bhupendra Candelaria DO Date Dictated: 05/18/16 1400 Date Transcribed: 05/18/16 1503 Hosiery Mater: Signed Dylan Velarde Start: 05-15-2016 End: 05-15-2016 12 lead ECG Comments: See Note; NOTES: [facility] Cardiovascular Services [address] [place] [address] 12 Lead EKG 05/13/16 1751 MR#: [id number] Acct: [id number] Name: DOUG FLANAGAN Rep #: [id number] : 1990 25 From: Tevin Quijano MD Attending Dr: Status: DEP ER [...] Normal sinus rhythm Normal ECG Confirmed by TEVIN QUIJANO ([id number]), editorial project manager FELIX RAMOS ([id number]) on 05/15/2016 3:14:49 PM Referred By: /CEDRICK Confirmed By:TEVIN QUIJANO 05/15/16 1514 Date Tevin Quijano MD CC: Bhupendra Candelaria DO Date Dictated: 05/13/161750 Date Transcribed: 05/13/161750 Hosiery Mater: Signed Dylan Velarde Start: 05-14-2016 End: 05-14-2016 Discharge Instruction Comments: See Note; NOTES: [facility] Medical Records Department [address] [place] [address] Discharge Instruction 05/13/16 2044 MR#: [id number] Acct: [id number] Name: DOUG FLANAGAN Rep #: [id number] : 1990 From: Hill Banks MD PCP: Bhupendra Candelaria DO Status: DEP ER ED Disposition - Plan for ED Patient: Disposition: Home or Assisted Living Chief Complaint: Chest Pain Instructions: ED Chest Pain Noncardiac Ch Referrals: Bhupendra Candelaria DO [Primary Care Provider] - Keep Hellen appointment What to do if you have Problems For any increased pain, shortness of breath, bleeding, nausea or vomiting, chest pain, or any unexpected problems, contact your Primary Care Provider. Call [facility] ([phone]) or report to the closest Emergency Room. Call 911 if necessary. 05/14/16 0046 <Electronically signed by Hill Banks MD> Date Hill Banks MD Cosigner Signature (If Indicated): Date CC: Bhupendra Candelaria DO Dylan Patheather Start: 05-14-2016 End: 05-14-2016 Emergency Department Summary Comments: See Note; NOTES: [facility] Medical Records Department [address] [place] [address] Emergency Department Summary MR#: [id number] Acct: [id number] Name: DOUG FLANAGAN Rep #: [id number] : 1990 From: Hill Banks MD PCP: Bhupendra Candelaria DO Status: DEP ER DATE OF SERVICE: 05/13/2016 CHIEF COMPLAINT: Chest pain. HISTORY OF PRESENT ILLNESS: A 25-year-old female presenting secondary to chest pain, states this has been going on for 10-11 days, continuous, it is aching, it is left-sided, goes through to her back, seems to be worse with exertion and breathing. She has had prior similar episodes in the past. She actually had a significant workup in the hospital in 2014, including echocardiogram, CTA, all of which were found to be negative. The patient went and saw a glass sander belt for this. They felt that it potentially [...] She has a history of epilepsy and pleurisy. PHYSICAL EXAMINATION: VITAL SIGNS: Within normal limits. GENERAL: Well-nourished female. HEENT: Moist mucous membranes. No JVD. HEART: Regular with normal S1 and S2. No murmurs, rubs or gallops. LUNGS: Clear. Chest nontender, no vesicular rash. ABDOMEN: Soft, nontender. EXTREMITIES: Peripheral pulses 2+ x4. Remainder of physical otherwise unremarkable. EMERGENCY DEPARTMENT COURSE AND DECISION MAKING: I reviewed the patient's records. She had a completely negative workup including CTA and cardiac echo in 2014. She has virtually no cardiac or PE risk factors. EKG was obtained, which showed normal sinus rate of 81 with no evidence of ischemic or arrhythmic changes. Chest x-ray was normal. At this point, I do not see any utility in keeping the patient in the hospital as she already has an adequate outpatient workup for this. She was given Zofran in the ER, had some symptomatic improvement. She will be discharged with a course of the same. DISPOSITION: Discharge. DIAGNOSIS: Chest pain. Hill Banks M.D. T: NTS JOB: [id number] 05/14/16 0046 <Electronically signed by Hill Banks MD> Date Hill Banks MD Cosigner Signature (If Indicated): Date CC: Bhupendra Candelaria DO Date Dictated: 05/14/1611 Date Transcribed: 05/14/1611 Hosiery Mater: Signed Dylan Velarde Start: 05-13-2016 End: 05-13-2016 Chest PA and Lateral Comments: See Note; NOTES: [facility] Imaging Services [address] [place] [address] Verdana 4d Chest PA and Lateral MR#: [id number] Acct: [id number] Name: DOUG FLANAGAN Rep #: [id number] : 1990 F 25 From: Olvin Rosenthal PCP: Bhupendra Candelaria DO Status: REG ER Study: Chest PA and Lateral Date of Exam: 05/13/16 Exam# [id number] Ordering Dr: Hill Banks MD STUDY: X-RAY CHEST REASON FOR EXAM: Female, 25 years old. Chest pain, dyspnea TECHNIQUE: Frontal and lateral views of the chest. COMPARISON: 02/09/2016. FINDINGS: The lungs are clear and expanded. There is no demonstrated pleural abnormality. Normal size heart. Normal mediastinum and shima. Normal visualized pulmonary arteries. Normal visualized aortic arch and descending thoracic aorta. Normal visualized thoracic spine. Normal visualized ribs, clavicles, and shoulders. There is no demonstrated abnormality of the visualized soft tissue structures of the upper abdomen. RAD/Chest PA and Lateral IMPRESSION: No acute cardiopulmonary disease. Electronically Signed: Olvin Rosenthal DO at 19:07 EST , Service support [phone], CC: Bhupendra Candelaria DO; Hill Banks Hosiery Mater: Signed Dylan Velarde Start: 02-11-2016 End: 02-11-2016 12 lead ECG Comments: See Note; NOTES: [facility] Cardiovascular Services [address] [place] [address] 12 Lead EKG 02/09/16 1045 MR#: [id number] Acct: [id number] Name: DOUG FLANAGAN Rep #: [id number] : 1990 25 From: Compa Healy MD Attending Dr: Status: DEP ER Ordering Dr: Tevin Lopez DO Date: 02/09/16 Location: ED Sex: F C Admitted: Test Reason : CHEST PAIN Blood Pressure : / mmHG Vent. Rate : 097 BPM Atrial Rate : 097 BPM P-R Int : 170 ms QRS Dur : 078 ms QT Int : 348 ms P-R-T Axes : 075 075 061 degrees QTc Int : 441 ms Normal sinus rhythm Normal ECG Confirmed by TEMI SALGADO, COMPA ([id number]), editorial project manager FELIX RAMOS ([id number]) on 02/11/2016 2:23:30 PM Referred By: Confirmed By:COMPA HEALY MD 02/11/16 1423 Date Compa Healy MD CC: Bhupendra Candelaria DO Date Dictated: 02/09/16 1045 Date Transcribed: 02/09/161044 Hosiery Mater: Pita Velarde Start: 02-09-2016 End: 02-09-2016 Emergency Department Summary Comments: See Note; NOTES: [facility] Medical Records Department [address] [place] [address] Emergency Department Summary MR#: [id number] Acct: [id number] Name: DOUG FLANAGAN Rep #: [id number] : 1990 25 From: Tevin Lopez DO PCP: Bhupendra Candelaria DO Status: DEP ER DATE OF SERVICE: 02/09/2016 CHIEF COMPLAINT: Chest pain. HISTORY OF PRESENT ILLNESS: This is a 25-year-old female who notes that since yesterday she has had intermittent episodes where she gets a squeezing sensation in her chest and she feels like she is going to ____ pass out and then it starts to relax. She has had chest pains in the past. She has had ER visits and follow up with no diagnosis. She denies any PE risk factors. No significant family history. PHYSICAL EXAMINATION: VITAL SIGNS: Afebrile. Vital signs are stable. HEART: Regular without murmur. LUNGS: Lung sounds are clear and equal. Peripheral pulses are 2+ bilaterally symmetric in the upper and the lower extremities. EMERGENCY DEPARTMENT COURSE: Chest x-ray was negative. EKG was [...] Chest pain. 2. Concern for esophageal spasms. Tevin Lopez DO T: NTS JOB: [id number] 02/09/16 1542 <Electronically signed by Tevin Lopez DO> Date Tevin Lopez DO Cosigner Signature (If Indicated): Date CC: Bhupendra Candelaria DO Date Dictated: 02/09/16 1211 Date Transcribed: 02/09/16 121 Hosiery Mater: Signed Dylan Velarde Start: 02-09-2016 End: 02-09-2016 Discharge Instruction Comments: See Note; NOTES: [facility] Medical Records Department [address] [place] [address] Discharge Instruction 02/09/16 1208 MR#: [id number] Acct: [id number] Name: DOUG FLANAGAN Rep #: [id number] : 1990 25 From: Tevin Lopez DO PCP: Bhupendra Candelaria DO Status: REG ER ED Disposition - Plan for ED Patient: Disposition: Home or Assisted Living Chief Complaint: Chest Pain Instructions: ED Esophageal Spasm Prescriptions: Famotidine [Pepcid] 20 mg PO BID #28 tablet Referrals: Bhupendra Candelaria DO [Primary Care Provider] - 1-2 Weeks What to do if you have Problems For any increased pain, shortness of breath, bleeding, nausea or vomiting, chest pain, or any unexpected problems, contact your doctor. Call [facility] ([phone]) or report to the closest Emergency Room. Call 911 if necessary. 02/09/16 1209 <Electronically signed by Tevin Lopez DO> Date Tevin Lopez DO Cosigner Signature (If Indicated): Date CC: Bhupendra Candelaria DO Dylan Velarde Start: 02-09-2016 End: 02-09-2016 Chest PA and Lateral Comments: See Note; NOTES: [facility] Imaging Services [address] [place] [address] Verla grange 4d Chest PA and Lateral MR#: [id number] Acct: [id number] Name: DOUG FLANAGAN Rep #: [id number] : 1990 F 25 From: Virginia Hankins MD PCP: Bhupendra Candelaria DO Status: REG ER Study: Chest PA and Lateral Date of Exam: 02/09/16 Exam# [id number] Ordering Dr: Tevin Lopez DO STUDY: X-RAY CHEST REASON FOR EXAM: Female, 25 years old. Chest pain, shortness of breath TECHNIQUE: PA and lateral views of the chest. COMPARISON: 01/28/2016 FINDINGS: There are superimposed monitor leads. Stable hyperinflation. [...] Stable hyperinflation. No acute cardiopulmonary disease. No significant interval change. Electronically Signed: Virginia Hankins MD at 12:03 EDT , Service support [phone], CC: Tevin Lopez DO; Bhupendra Candelaria DO Hosiery Mater: Signed Dylan Mable Start: 01-31-2016 End: 01-31-2016 Emergency Department Summary Comments: See Note; NOTES: [facility] Medical Records Department [address] [place] [address] Emergency Department Summary MR#: [id number] Acct: [id number] Name: DOUG FLANAGAN Rep #: [id number] : 1990 25 From: Hill Tavera MD PCP: Care Physician,No Primary Status: [facility] DATE OF SERVICE: 01/28/2016 METHOD OF ARRIVAL: By private car. CHIEF COMPLAINT: Chest pain. PRIMARY CARE PHYSICIAN: Serina rivera BRENNAN HISTORY: A 25-year-old female, who reports a history of pleurisy and possible myocarditis, this was about a year ago. She also has seizure history. The patient comes in with chest pain that started yesterday about 1:00 p.m., it has been constant, described it as sharp, burning pain, intermittent, chest. She also states it is into her back. She states currently is a 7. Denies it being worse with exertion, but it is worse with breathing. She states nothing really makes it better. Denies nausea, vomiting, or diaphoresis. She does feel short of breath. No cough or fever symptoms. No recent URI symptoms. She does state this is similar to her presentation with the pleurisy. REVIEW OF SYSTEMS: Otherwise remarkable for slight headache, otherwise unremarkable. I did look up her reports, the patient did have an echo that showed no pericardial effusion with the echo relatively unremarkable, 60% EF. I look up her discharge summary and there was no discussion about her being in myocarditis, her primary discharge diagnosis was pleuritic chest pain. PHYSICAL EXAMINATION: VITAL SIGNS: Stable. She is afebrile. She is not tachycardic. HEENT: Unremarkable. NECK: Supple. LUNGS: Clear. HEART: Regular. I do not appreciate any murmur, rub, or gallop. ABDOMEN: Soft and nontender. NEUROLOGIC: Awake, alert, no focal findings. TESTS: Chest x-ray, 2 view is negative. EKG is sinus at 79, no ischemic pattern, [...] declined anything for pain. At this time, her pain has been constant for approximately 18 hours with negative cardiac markers and normal EKG. I do not suspect this to be cardiac. Also, she had a negative D-dimer, I do not believe that she requires a CTA. She has no history of DVT or PE. At this time, we will treat her as pleurisy, placed her on anti-inflammatories. She is encouraged to follow up with her primary care. CLINICAL IMPRESSION: 1. Atypical chest pain. 2. Pleurisy. DISPOSITION: Home. MD Robert Doll C: Donna Perdomo MD T: [facility] JOB: [id number] 01/31/16 1507 <Electronically signed by Hill Tavera MD> Date Hill Tavera MD Cosigner Signature (If Indicated): Date CC: Donna Perdomo MD; No Primary Care Physician Date Dictated: 01/28/161204 Date Transcribed: 01/28/161204 Hosiery Mater: Signed Dylan Velarde Start: 11-12-2015 End: 11-12-2015 Emergency Department Summary Comments: See Note; NOTES: [facility] Medical Records Department [address] [place] [address] Emergency Department Summary MR#: [id number] Acct: [id number] Name: DOUG FLANAGAN Rep #: [id number] : 1990 From: Everardo Espinoza MD PCP: Bhupendra Candelaria DO Status: DEP ER DATE OF SERVICE: 11/11/2015 CHIEF COMPLAINT: Numbness. HISTORY OF PRESENT ILLNESS: This is a 25-year-old female with a history of epilepsy and migraines, presents with acute onset of numbness in her left lower face only that started 5-1/2 hours prior to arrival while she was at rest. She states last night she accidentally [...] symptoms like this with her migraines in the past. She does not recall having any seizure activity recently. She ____ grand mal, but occasionally has tremors and twitches that she has been told may be seizure activity occasionally, that she has p.r.n. Ativan for. She has been compliant with her seizure medication. PHYSICAL EXAMINATION: VITAL SIGNS: Afebrile. Vitals are normal. GENERAL: She is well appearing, in no acute distress. HEENT: She has subjective decreased sensation in the left lower face only. She has no facial droop. The forehead raises equally. NEUROLOGIC: She has normal peripheral and central neurologic exams otherwise. NECK: Supple. No tenderness. No lymphadenopathy. LUNGS: [...] concussion related symptoms, with monitoring close outpatient followup, returning for worsening problems. Discussed with them and they are comfortable with this plan. IMPRESSION: 1. Concussion without loss of consciousness. 2. Paresthesias. DISPOSITION: Home. CONDITION: Stable. Everardo Jones C: Bhupendra Candelaria DO T: NTS JOB: [id number] 11/12/15 0115 <Electronically signed by Everardo Espinoza MD> Date Everardo Espinoza MD Cosigner Signature (If Indicated): Date CC: Bhupendra Candelaria DO Date Dictated: 11/11/151806 Date Transcribed: 11/11/151806 Hosiery Mater: Signed Dylan Mable Start: 11-11-2015 End: 11-11-2015 Discharge Instruction Comments: See Note; NOTES: [facility] Medical Records Department [address] [place] [address] Discharge Instruction 11/11/15 1728 MR#: [id number] Acct: [id number] Name: DOUG FLANAGAN Rep #: [id number] : 1990 25 From: Everardo Espinoza MD PCP: Bhupendra Candelaria DO Status: REG ER ED Disposition - Plan for ED Patient: Disposition: Home or Assisted Living Chief Complaint: Numb/Ting Instructions: ED Concussion, No Wake-Up, ED Paraesthesias Referrals: Bhupendra Candelaria DO [Primary Care Provider] - 1-2 Days if not improving Additional Instructions: use ibuprofen and/or tylenol as needed for any pain. What to do if you have Problems For any increased pain, shortness of breath, bleeding, nausea or vomiting, chest pain, or any unexpected problems, contact your doctor. Call [facility] ([phone]) or report to the closest Emergency Room. Call 911 if necessary. 11/11/15 1730 <Electronically signed by Everardo Espinoza MD> Date Everardo Espinoza MD Cosigner Signature (If Indicated): Date CC: Bhupendra Candelaria DO Dylan Velarde Start: 11-11-2015 End: 11-11-2015 Brain/Head without Contrast Comments: See Note; NOTES: [facility] Imaging Services [address] [place] [address] Verdana 4d Brain/Head without Contrast MR#: [id number] Acct: [id number] Name: DOUG FLANAGAN Rep #: [id number] : 1990 F 25 From: Everton Wolff MD PCP: Bhupendra Candelaria DO Status: [facility] Study: Brain/Head without Contrast Date of Exam: 11/11/15 Exam# [id number] Ordering Dr: Everardo Espinoza MD STUDY: CT BRAIN WITHOUT CONTRAST REASON FOR EXAM: Female, 25 years old. Left facial weakness and drooling. History of epilepsy. RADIATION DOSAGE (If Supplied By Facility): CTDIvol = ( 60.81 ) mGy, DLP [...] MD at 17:00 EDT , Service support [phone], CC: EVERARDO ESPINOZA MD; Bhupendra Candelaria DO Hosiery Mater: Signed Dylan Velarde Start: 06-21-2015 End: 06-21-2015 Brain without Contrast Comments: See Note; NOTES: [facility] Imaging Services [address] [place] [address] Verdana 4d Brain without Contrast MR#: [id number] Acct: [id number] Name: DOGU FLANAGAN Rep #: [id number] : 1990 F 24 From: Khadar Miller MD PCP: Bhupendra Candelaria DO Status: REG CLI Study: Brain without Contrast Date of Exam: 06/21/15 Exam# [id number] Ordering Dr: Bhupendra Candelaria DO STUDY: MRI BRAIN WITHOUT CONTRAST [...] tissue structures. Normal visualized upper cervical spine. IMPRESSION: Normal unenhanced MRI of the brain. Electronically Signed: Khadar Miller MD at 15:50 EST , Service support [phone], CC: Bhupendra Candelaria DO Hosiery Mater: Signed Bhupendra Candelaria Work Phone: Start: 02-26-2015 End: 02-26-2015 Spmtry w/vc expiratory eddie w/wo mxml vol vntj _ Dylan Velarde Work Phone: Comment on above: mild airway obstruction Start: 02-26-2015 End: 02-26-2015 Ecg routine ecg w/least 12 lds w/i&r [MEASUREMENTS ANALYSIS] Date of Test: 02/26/2015 11:18:05; Heart Rate: 77; NV Interval: 182; QRS: 100; QT Interval: 378; Corrected QT Interval (QTc): 407; P Wave Belden: 56; QRS Wave Belden: 44; T Wave Belden: 34; Blood Pressure: 104/66 [ECG DIAGNOSTIC STATEMENTS] Date of Test: 02/26/2015 11:18:05; Summary: Sinus Rhythm WITHIN NORMAL LIMITS Dylan Velarde Work Phone: Appendectomy Madai Dunbar Comment on above: 2004 Appendectomy Madai Dunbar Comment on above: 2004 Appendectomy Louise Cunningham Comment on above: 2004 Appendectomy Prerna Frederic Comment on above: 2004 Appendectomy Alexis Iqbal Comment on above: 2004 Appendectomy Alexis Riojas Comment on above: 2004 Appendectomy Donna Perdomo MD Work Phone: Comment on above: 2004 Appendectomy Zeinab Ant JOE Comment on above: 2004 Appendectomy Nnia Fierro PN Comment on above: 2004 Hip surgery right Madai perea Comment on above: 2012 Hip surgery right Maadi perea Comment on above: 2012 Hip surgery right Louise umana Comment on above: 2012 Hip surgery right Prerna means Comment on above: 2012 Hip surgery right Alexis pickering Comment on above: 2012 Hip surgery right Alexis brewster Comment on above: 2012 Hip surgery right Donna Dixon MD Work Phone: Comment on above: 2012 Hip surgery right Zeinab Pandey nchak REFERRAL MANAGEMENT LIAISON Comment on above: 2012 Hip surgery right Nina Anderson man E [employer] Comment on above: [address] Donna Perdomo Work Phone: Plan of Treatment Date Care Activity Detail Author Start: 2048 RSV Immunization aged 60 or older (1 - 1-dose 60+ series) RSV Immunization aged 60 or older (1 - 1-dose 60+ series) [facility] Start: 2038 Zoster Vaccines (1 of 2) Zoster Vaccines (1 of 2) [facility] Start: 09-25-2029 DTaP/Tdap/Td Vaccines (2 - Td or Tdap) DTaP/Tdap/Td Vaccines (2 - Td or Tdap) [facility] Start: 09-25-2029 Tetanus vaccination TETANUS [facility] Start: 09-25-2029 Urine microalbumin profile DTaP,Tdap,Td Vaccine (2 - Td or Tdap) [facility] Start: 05-18-2028 Meningococcal Conjugate Vaccine (3 - Risk 2-dose series) Meningococcal Conjugate Vaccine (3 - Risk 2-dose series) [facility] Start: 05-14-2028 Screening for malignant neoplasm of cervix Cervical Cancer Screening [facility] Start: 04-29-2027 HPV TESTING HPV TESTING [facility] Start: 04-29-2027 PAP TESTING PAP TESTING [facility] Start: 07-16-2026 HPV TESTING HPV TESTING [facility] Start: 07-16-2026 PAP TESTING PAP TESTING [facility] Start: 04-29-2025 Screening for malignant neoplasm of cervix [facility] Start: 01-01-2025 Influenza vaccination Influenza Vaccine (Season Ended) [facility] Start: 10-13-2024 X-ray of chest, PA and lateral views Chest PA and Lateral [facility] Start: 10-13-2024 XR Chest PA and Lateral [facility] Start: 10-06-2024 End: 10-06-2024 [facility] Start: 10-06-2024 Creatine kinase [Enzymatic activity/volume] in Serum or Plasma [facility] Start: 10-06-2024 Triglycerides measurement [facility] Start: 10-06-2024 Airway suction technique [facility] Start: 10-06-2024 Lamotrigine measurement [facility] Start: 08-23-2024 Plain X-ray abdomen Abdomen Single View [facility] Start: 08-23-2024 XR Abdomen Single view [facility] Start: 08-23-2024 Lamotrigine measurement [facility] Start: 08-18-2024 [facility] Start: 08-16-2024 [facility] Start: 05-18-2024 End: 05-18-2024 Patient encounter procedure 05/18/2024 9:50 AM EST Office Visit OB/Gynecology [address] [place] [address] Sarah Pop MD [address] [place], [place] [address] Annual OB/Gynecology Comment on above: Annual Start: 05-14-2024 Screening for malignant neoplasm of cervix Cervical Cancer Screening [facility] Start: 03-27-2024 End: 03-27-2024 Telemedicine consultation with patient 03/27/2024 1:00 PM EST Telemedicine [facility] [address] [place] [address] [address] [place] [address] Edgar Ayers MD [address] [facility] [place] [id number] [facility] Start: 02-29-2024 End: 02-29-2024 Patient encounter procedure Neurology [facility] Start: 02-13-2024 Meningococcal B Vaccine: Consider Based On Risk (4 of 5 - Increased Risk Trumenba 3-dose series) Meningococcal B Vaccine: Consider Based On Risk (4 of 5 - Increased Risk Trumenba 3-dose series) [facility] Start: 01-02-2024 COVID-19 VACCINE () COVID-19 VACCINE () [facility] Start: 01-02-2024 Covid-19 Vaccine () Covid-19 Vaccine () [facility] Start: 01-02-2024 Influenza vaccination [facility] Start: 11-01-2023 End: 11-01-2023 Telemedicine consultation with patient 11/01/2023 1:00 PM EDT Telemedicine [facility] [address] [facility] [address] [place] [address] Edgar Ayers MD [address] [facility] [place] [address] [facility] Start: 05-03-2023 Behavioral Health Screening Behavioral Health Screening [facility] Start: 04-09-2023 End: 04-09-2023 Patient encounter procedure 04/09/2023 9:30 AM EST Infusion Visit [facility] [address] [place] [phone] Infusion [facility] Start: 04-06-2023 End: 04-06-2023 Patient encounter procedure [facility] [place] Start: 03-09-2023 End: 03-09-2023 Patient encounter procedure 03/09/2023 1:20 PM EST Office Visit [facility] [address] [facility] [address] [place] [phone] Soledad Paul, CUSTOMER SALES REPRESENTATIVE-PLATFORM MATERIAL HANDLING SUPERVISOR [address] [place] [address] [facility] [place] Start: 03-09-2023 End: 03-09-2023 Patient encounter procedure 03/09/2023 9:30 AM EST Appointment Imaging [facility] [address] [place] [address] Imaging [facility] Start: 02-13-2023 End: 11-14-2023 EEG, ROUTINE EEG, ROUTINE Neurology Routine Breakthrough seizure Expected: 02/13/2023, Expires: 11/14/2023 [facility] Work Phone: Comment on above: Expected: 02/13/2023, Expires: Start: 01-06-2023 End: 01-06-2023 Patient encounter procedure 01/06/2023 Office Visit Neurology Renee Donald CUSTOMER SALES REPRESENTATIVE-PLATFORM MATERIAL HANDLING SUPERVISOR [address] [place] [address] [facility] Start: 01-01-2023 COVID-19 VACCINE () COVID-19 VACCINE () [facility] Start: 01-01-2023 Influenza vaccination [facility] Start: 12-03-2022 End: 12-03-2022 Patient encounter procedure 12/03/2022 2:40 PM EDT Office Visit [facility] [place] [id number] [address] Renee Donald APRN-PLATFORM MATERIAL HANDLING SUPERVISOR [address] [place] [phone] [facility] [place] Start: 09-07-2022 Venous catheter care management [facility] Start: 08-08-2022 [facility] Start: 08-08-2022 Seizure precautions [facility] Start: 05-27-2022 Venous catheter care management [facility] Start: 05-27-2022 [facility] Start: 05-27-2022 Chemotherapy care management [facility] Start: 05-03-2022 DEPRESSION ASSESSMENT DEPRESSION ASSESSMENT [facility] Start: 03-27-2022 Venous catheter care management [facility] Start: 02-05-2022 Seizure precautions [facility] Start: 01-01-2022 Influenza vaccination [facility] Start: 10-17-2021 Anesthesia vaginal procedure w/biopsy nos ANESTH VAGINAL PROCEDURES [facility] Work Phone: Start: 10-17-2021 Conization cervix w/wo d&c rpr knife/laser CONIZATION OF CERVIX [facility] Work Phone: Start: 10-17-2021 Insertion intrauterine device iud INSERT INTRAUTERINE DEVICE [facility] Work Phone: Start: 10-17-2021 Removal intrauterine device iud REMOVE INTRAUTERINE DEVICE [facility] Work Phone: Start: 10-17-2021 Patient discharge [facility] Work Phone: Start: 10-17-2021 Procedure discontinued [facility] Work Phone: Start: 10-17-2021 Ambulation without limitation [facility] Work Phone: Start: 10-17-2021 Medical regimen orders management [facility] Work Phone: Start: 10-17-2021 Medication education [facility] Work Phone: Start: 10-17-2021 Taking patient vital signs [facility] Work Phone: Start: 10-17-2021 Vital signs measurements [facility] Work Phone: Start: 10-17-2021 [facility] Work Phone: Start: 10-17-2021 Patient discharge [facility] Work Phone: Start: 10-17-2021 Venous catheter care management [facility] Work Phone: Start: 05-03-2021 DEPRESSION ASSESSMENT DEPRESSION ASSESSMENT [facility] Start: 12-24-2020 Procedure Education Eprescribed prescriptions (G8553) [facility] Work Phone: Start: 12-24-2020 Provider Instructions for Treatment Follow up in 6 months [facility] Work Phone: Start: 11-12-2020 Procedure Education Eprescribed prescriptions (G8553) [facility]; [facility] Work Phone: Start: 11-12-2020 Potassium serum plasma/whole blood POTASSIUM SERUM (57012) [facility] Work Phone: Start: 10-25-2020 Meningococcal B Vaccine (4 of 5 - Increased Risk Trumenba 3-dose series) Meningococcal B Vaccine (4 of 5 - Increased Risk Trumenba 3-dose series) [facility] Start: 10-25-2020 Comprehensive metabolic panel Metabolic Panel, Comprehensive (50346) [facility] Work Phone: Start: 10-25-2020 Thromboplastin time partial plasma/whole blood PTT (Activated Partial Thromboplastin Time) (90128) [facility]; [facility] Work Phone: Start: 10-25-2020 Prothrombin time PT (Prothrobim Time) (95363) [facility] Work Phone: Start: 10-25-2020 Blood count complete automated CBC & PLATELETS (AUTO) (37436) [facility]; [facility] Work Phone: Start: 09-02-2020 HPV Vaccines (2 - 3-dose SCDM series) HPV Vaccines (2 - 3-dose SCDM series) [facility] Start: 01-02-2020 Influenza vaccination [place], [place] Start: 10-22-2019 End: 10-07-2020 Basic metabolic 2000 panel Basic Metabolic Panel Lab Routine Seizures (HCC) Expected: 10/22/2019, Expires: 10/07/2020 [place], [place] Comment on above: Expected: 10/22/2019, Expires: 1 Start: 07-19-2019 Procedure Education Eprescribed prescriptions (G8553) [facility]; [facility] Work Phone: Start: 05-17-2019 Culture bct isol&prsmptv id isolate ea urine URINE SARAH BETH CULTURE-IDENTIFICATN (48083) [facility]; [facility] Work Phone: Start: 05-17-2019 Procedure Education Eprescribed prescriptions (G8553) [facility]; [facility] Work Phone: Start: 05-17-2019 Provider Instructions for Treatment Follow up if no improvement or if symptoms worsen [facility] Work Phone: Start: 03-29-2019 Procedure Education Eprescribed prescriptions (G8553) [facility]; [facility] Work Phone: Start: 03-08-2019 Procedure Education Eprescribed prescriptions (G8553) [facility] Work Phone: Start: 03-08-2019 Provider Instructions for Treatment Follow up if no improvement or if symptoms worsen [facility] Work Phone: Start: 12-06-2018 Procedure Education Eprescribed prescriptions (G8553) [facility] Work Phone: Start: 12-06-2018 Provider Instructions for Treatment Follow up if no improvement or if symptoms worsen [facility] Work Phone: Start: 11-17-2018 Adult depression screening assessment DEPRESSION SCREENING [facility] Start: 10-24-2018 Procedure Education Eprescribed prescriptions (G8553) [facility] Work Phone: Start: 10-24-2018 Cul bact xcpt urine blood/stool aerobic isol Throat Culture (32516) [facility] Work Phone: Start: 10-24-2018 Antibody gladis-aragon eb virus early antigen ea EBV Panel (04571) [facility] Work Phone: Start: 10-24-2018 Heterophile antibodies screen MONOSPOT TEST (94706) [facility] Work Phone: Start: 10-24-2018 Blood count complete auto&auto difrntl wbc CBC, Platelets & Auto Diff (52407) [facility] Work Phone: Start: 10-24-2018 Comprehensive metabolic panel Metabolic Panel, Comprehensive (99684) [facility] Work Phone: Start: 10-24-2018 Iaadiadoo streptococcus group a Rapid Strep Test, Office (71257) [facility]; [facility] Work Phone: Start: 10-24-2018 S. pyogenes Ag IA Ql (Unsp spec) Rapid Strep Test, Office (23620) [facility] Work Phone: Start: 10-24-2018 Cul bact xcpt urine blood/stool aerobic isol CULTURE, SPUTUM (75413) [facility] Work Phone: Start: 2018 Screening for malignant neoplasm of cervix HPV/Cotest [facility] Start: 05-05-2018 Assay of magnesium MAGNESIUM (62979) [facility]; [facility] Work Phone: Start: 05-05-2018 Magnesium mass conc MAGNESIUM (70291) [facility] Work Phone: Start: 05-05-2018 Renal function panel RENAL FUNCTION PANEL (65072) [facility] Work Phone: Start: 03-08-2018 Procedure Education Eprescribed prescriptions (G8553) [facility] Work Phone: Start: 03-08-2018 Bacteria identified Respiratory culture Nom (Sput) Sputum Culture (67120) [facility] Work Phone: Start: 03-08-2018 Cul bact xcpt urine blood/stool aerobic isol Sputum Culture (55008) [facility]; [facility] Work Phone: Start: 02-18-2018 Tb cell mediated antign respnse gamma interferon QuantiFERON-TB Gold Plus (QFT-Plus) (31787) [facility] Work Phone: Start: 02-18-2018 Antibody borrelia burgdorferi lyme disease Lyme Disease Antibody W/ Reflex (37036) [facility] Work Phone: Start: 02-11-2018 Procedure Education Eprescribed prescriptions (G8553) [facility] Work Phone: Start: 02-07-2018 Procedure Education Eprescribed prescriptions (G8553) [facility] Work Phone: Start: 02-07-2018 Provider Instructions for Treatment [facility] Work Phone: Start: 01-24-2018 Procedure Education Eprescribed prescriptions (G8553) [facility] Work Phone: Start: 01-24-2018 Provider Instructions for Treatment Follow up in 2 weeks [facility] Work Phone: Start: 12-24-2017 Procedure Education Eprescribed prescriptions (G8553) [facility] Work Phone: Start: 12-24-2017 Provider Instructions for Treatment [facility] Work Phone: Start: 12-24-2017 Blood count complete auto&auto difrntl wbc CBC, PLATELETS & AUT DIFF (73384) [facility] Work Phone: Start: 12-24-2017 C-reactive protein high sensitivity C-REACT PROT HIGH SENS(hsCRP) (16015) [facility] Work Phone: Start: 12-24-2017 Protein mass conc C-REACT PROT HIGH SENS(hsCRP) (32806) [facility] Work Phone: Start: 12-24-2017 Sedimentation rate rbc non-automated ESR-F (SED RATE ERYTHROCYTE - FEMALE) (98923) [facility] Work Phone: Start: 12-24-2017 Rheumatoid factor quantitative RHEUMATOID FACTOR-QUANT (35035) [facility] Work Phone: Start: 12-24-2017 Antinuclear antibodies efe EFE (ANTINUCLEAR ANTIBODY) (04221) [facility]; [facility] Work Phone: Start: 12-24-2017 Nuclear Ab IF titer (S) EFE (ANTINUCLEAR ANTIBODY) (59462) [facility] Work Phone: Start: 12-23-2017 Procedure Education Eprescribed prescriptions (G8553) [facility] Work Phone: Start: 12-23-2017 Comprehensive metabolic panel METABOLIC PANEL, COMPREHENSIVE (17138) [facility] Work Phone: Start: 11-30-2017 Procedure Education Eprescribed prescriptions (G8553) [facility] Work Phone: Start: 11-30-2017 Provider Instructions for Treatment Follow up if no improvement or if symptoms worsen [facility] Work Phone: Start: 08-03-2017 Procedure Education Eprescribed prescriptions (G8553) [facility] Work Phone: Start: 05-31-2017 Provider Instructions for Treatment *fatigue education [facility] Work Phone: Start: 03-02-2017 Procedure Education Eprescribed prescriptions (G8553) [facility] Work Phone: Start: 03-02-2017 Provider Instructions for Treatment Follow up if no improvement or if symptoms worsen [facility] Work Phone: Start: 02-10-2017 Procedure Education Eprescribed prescriptions (G8553) [facility] Work Phone: Start: 02-10-2017 Iaadiadoo influenza Rapid Flu (45028 x 2) [facility] Work Phone: Start: 02-10-2017 Iaadiadoo streptococcus group a Rapid Strep Test, Office (13344) [facility]; [facility] Work Phone: Start: 02-10-2017 S. pyogenes Ag IA Ql (Unsp spec) Rapid Strep Test, Office (20726) [facility] Work Phone: Start: 05-19-2016 Rheumatoid factor quantitative RHEUMATOID FACTOR-QUANT (16773) test code [id number] [facility] Work Phone: Start: 05-19-2016 Extractable nuclear antigen antibody any method Systemic Lupus Profile (59651) [facility] Work Phone: Start: 05-19-2016 Protein mass conc Systemic Lupus Profile (98929) [facility] Work Phone: Start: 05-19-2016 Comprehensive metabolic panel Metabolic Panel, Comprehensive (56999) [facility] Work Phone: Start: 05-19-2016 Assay of thyroid stimulating hormone tsh TSH (96229) [facility]; [facility] Work Phone: Start: 05-19-2016 Thyrotropin Qn TSH (83910) [facility] Work Phone: Start: 05-19-2016 Blood count complete auto&auto difrntl wbc CBC, Platelets & Auto Diff (26445) [facility] Work Phone: Start: 05-19-2016 Provider Instructions for Treatment Follow up in 3 weeks [facility] Work Phone: Start: 01-31-2016 Provider Instructions for Treatment [facility] Work Phone: Start: 10-10-2015 Procedure Education Eprescribed prescriptions (G8553) [facility] Work Phone: Start: 08-30-2015 Procedure Education Eprescribed prescriptions (G8553) [facility] Work Phone: Start: 08-30-2015 Provider Instructions for Treatment Follow up after consult [facility] Work Phone: Start: 08-30-2015 Assay of magnesium MAGNESIUM (75757) [facility]; [facility] Work Phone: Start: 08-30-2015 Magnesium mass conc MAGNESIUM (02320) [facility] Work Phone: Start: 08-09-2015 Provider Instructions for Treatment [facility] Work Phone: Start: 06-28-2015 Provider Instructions for Treatment [facility] Work Phone: Start: 06-28-2015 25 hydroxy includes fractions if performed CALCIFIDIOL (76363) VIT D 25 [facility] Work Phone: Start: 05-31-2015 Provider Instructions for Treatment [facility] Work Phone: Start: 05-31-2015 Protein mass conc Serum Protein Electrophoresis (SPEP) (47640) [facility] Work Phone: Start: 05-31-2015 Protein electrophoretic fractj&quantj serum [facility] Work Phone: Start: 05-31-2015 Protein mass conc (U) Urine Protein Electrophoresis (UPEP) (71844) [facility] Work Phone: Start: 05-29-2015 25 hydroxy includes fractions if performed CALCIFIDIOL (23498) VIT D 25 [facility] Work Phone: Start: 05-29-2015 Assay of folic acid serum Folate (28637) [facility] Work Phone: Start: 05-29-2015 Cobalamin (Vitamin B12) mass conc VITAMIN B-12 (CYANOCOBALAMIN) (53993) [facility] Work Phone: Start: 05-29-2015 Cyanocobalamin vitamin b-12 VITAMIN B-12 (CYANOCOBALAMIN) (93011) [facility]; [facility] Work Phone: Start: 05-29-2015 Assay of thyroid stimulating hormone tsh TSH (68988) [facility]; [facility] Work Phone: Start: 05-29-2015 Thyrotropin Qn TSH (82919) [facility] Work Phone: Start: 05-29-2015 Sedimentation rate rbc non-automated SED RATE ERYTHROCYTE (53100) [facility] Work Phone: Start: 05-29-2015 Rheumatoid factor quantitative RHEUMATOID FACTOR-QUANT (45345) [facility] Work Phone: Start: 05-29-2015 Comprehensive metabolic panel METABOLIC PANEL, COMPREHENSIVE (75089) [facility] Work Phone: Start: 05-29-2015 C-reactive protein C-REACTIVE PROTEIN (89659) [facility]; [facility] Work Phone: Start: 05-29-2015 CRP mass conc C-REACTIVE PROTEIN (72718) [facility] Work Phone: Start: 05-29-2015 Blood count complete automated CBC (AUTO) (99583) [facility] Work Phone: Start: 05-29-2015 Antinuclear antibodies efe EFE (ANTINUCLEAR ANTIBODY) (96649) [facility]; [facility] Work Phone: Start: 05-29-2015 Nuclear Ab IF titer (S) EFE (ANTINUCLEAR ANTIBODY) (62283) [facility] Work Phone: Start: 03-01-2015 Provider Instructions for Treatment Follow up in 6 weeks Apr 12 with [facility] Work Phone: Start: 02-26-2015 Provider Instructions for Treatment Follow up on Wednesday with [facility] Work Phone: Start: 2009 Screening for malignant neoplasm of cervix [facility] Start: 08-14-2007 DTaP/Tdap/Td vaccine (1 - Tdap) DTaP/Tdap/Td vaccine (1 - Tdap) [place] Start: 08-14-2007 Hepatitis B vaccination HEP B VACCINE (1 of 3 - 19+ 3-dose series) [facility] Start: 08-14-2007 Hepatitis B Vaccine (1 of 3 - 19+ 3-dose series) Hepatitis B Vaccine (1 of 3 - 19+ 3-dose series) [facility] Start: 08-14-2007 Third diphtheria, tetanus and acellular pertussis (DTaP) vaccination TDAP (ADULT) [facility] Start: 08-14-2007 Urine microalbumin profile DTAP,TDAP,TD (1 - Tdap) [facility] Start: 2006 Anxiety Screening Anxiety Screening [facility] Start: 2006 Depression Screening Depression Screening [facility] Start: 2006 HEPATITIS C SCREENING HEPATITIS C SCREENING [facility] Start: 2006 Hepatitis C screening Hepatitis C Screening [facility] Start: 2006 HIV SCREENING HIV SCREENING [facility] Start: 2006 HIV screening HIV Screening [facility] Start: 08-14-2003 HIV screening [facility] Start: 2000 Depression Screening Depression Screening [facility] Start: 1998 MENINGOCOCCAL B: Consider based on risk (1 of 4 - Increased Risk Bexsero 2-dose series) MENINGOCOCCAL B: Consider based on risk (1 of 4 - Increased Risk Bexsero 2-dose series) [facility] Start: 1993 COVID-19 VACCINE (#1) COVID-19 VACCINE (#1) [facility] Start: 1993 COVID-19 VACCINE (1) COVID-19 VACCINE (1) [facility] Start: 1990 MENINGOCOCCAL CONJUGATE (1 - Risk 2-dose series) MENINGOCOCCAL CONJUGATE (1 - Risk 2-dose series) [facility] Start: 1989 MMR Vaccines (1 of 1 - Standard series) MMR Vaccines (1 of 1 - Standard series) [facility] Start: 1989 Varicella vaccination Varicella Vaccines (1 of 2 - 2-dose childhood series) [facility] Start: 1989 Varicella vaccine (1 of 2 - 2-dose childhood series) Varicella vaccine (1 of 2 - 2-dose childhood series) [place] Start: 03-15-1989 MENINGOCOCCAL CONJUGATE (1 - Risk start 2-23 months series) MENINGOCOCCAL CONJUGATE (1 - Risk start 2-23 months series) [facility] Start: 03-15-1989 Meningococcal Vaccine (1 - Risk start 2-23 months series) Meningococcal Vaccine (1 - Risk start 2-23 months series) [facility] Start: 02-12-1989 COVID-19 VACCINE (#1) COVID-19 VACCINE (#1) [facility] Start: 1988 HEPATITIS B (1 of 3 - 3-dose series) HEPATITIS B (1 of 3 - 3-dose series) [facility] Start: 1988 Hepatitis B vaccination HEP B VACCINE (1 of 3 - 3-dose series) [facility] Start: 1988 Hepatitis B Vaccines (1 of 3 - 3-dose series) Hepatitis B Vaccines (1 of 3 - 3-dose series) [facility] Start: 1988 Hepatitis C screening HEPATITIS C VIRUS SCREENING [facility] Start: 1988 HIV screening HIV Screening [facility] Start: 1988 Medicare Advantage Annual Wellness Visit (AWV) Medicare Advantage Annual Wellness Visit (AWV) [facility] Start: 1988 Tetanus vaccination TETANUS [facility] ALERE STREP A TEST (AG) ALERE ST REP A TEST (AG) Lab Routine Sore throat Ordered: 10/11/2023 [place] Work Phone: Comment on above: Ordered: 10/11/2023 End: 10-09-2019 Basic Metabolic Panel w/ Reflex to MG Basic Metabolic Panel w/ Reflex to MG Lab Routine Tomorrow AM for 1 Occurrences starting 10/09/2019 until 10/09/2019 [facility], [place] Comment on above: Tomorrow AM for 1 Occurrences starting 0 10/09/2019 until 10/09/2019 Beef IgE Ab [Units/volume] in Serum [facility] Blood ammonia measurement [facility] CBC W Auto Different ial panel - Blood [facility] Chocolate IgE Ab [Units/volume] in Serum [facility] Codfish IgE Ab [Units/volume] in Serum [facility] End: 04-06-2023 COLONOSCOPY DIAGNOSTIC COLONOSCOPY DIAGNOSTIC Endoscopy Routine Generalized abdominal pain Change in bowel habits 1 Occurrences starting 04/06/2022 until 04/06/2023 [place] Work Phone: Comment on above: 1 Occurrences starting 04/06/2022 until 04/06/2023 COLPOSCOPY COLPOSCOPY Proce durjeffrey Routine LLOYD II (cervical intraepithelial neoplasia II) Cervical high risk human papillomavirus (HPV) DNA test positive Ordered: 04/29/2022 [place] Work Phone: Comment on above: Ordered: 04/29/2022 Comprehensive metabo lic 2000 panel - Serum or Plasma [facility] [place] IgE Ab [Units/volume] in Serum [facility] Cow milk IgE Ab [Units/volume] in Serum [facility] Food RAST [facility] Initiate Oxygen Ther apy Protocol Initiate Oxygen Therapy Protocol Respiratory Care Routine Daily until discontinued starting 10/07/2019 [facility], [place] Comment on above: Daily until discontinued starting 2019 Insertion intrauteri ne device iud INSERT INTRAUTERINE DEVICE Procedures Routine Encounter for IUD removal Pelvic pain in female Ordered: 07/24/2021 [place] Work Phone: Comment on above: Ordered: 07/24/2021 Lamotrigine measurement [facility] End: 10-30-2022 MYOSITIS PANEL [facility] Comment on above: One Time for 1 Occurrences starting 10/03 until 10/30/2022 Patient Education [facility] Work Phone: Patient referral [facility] Work Phone: Peanut IgE Ab [Units/volume] in Serum [facility] Pork IgE Ab [Units/volume] in Serum [facility] Procedure [facility] Radionuclide gastric emptying study [facility] Removal intrauterine device iud REMOVE INTRAUTERINE DEVICE Procedures Routine Encounter for IUD removal Pelvic pain in female Ordered: 07/24/2021 [place] Work Phone: Comment on above: Ordered: 07/24/2021 Wana IgE Ab [Units/volume] in Serum [facility] Shrimp IgE Ab [Units/volume] in Serum [facility] Soybean IgE Ab [Units/volume] in Serum [facility] SURGICAL PATHOLOGY SURGICAL PATH OLOGY Lab Routine ASCUS with positive high risk HPV cervical 08/20/2021 2:55 PM EDT [place] Work Phone: T4 free measurement [facility] Thyroid stimulating hormone measurement [facility] Tuna IgE Ab [Units/volume] in Serum [facility] Wheat IgE Ab [Units/volume] in Serum [facility] Whole Egg IgE Ab [Units/volume] in Serum [facility] XR Abdomen Single view [facility] Work Phone[facility] Work Phone: [facility] Work Phone: [facility] Work Phone: [facility] Work Phone: [facility] Work Phone: [facility] Work Phone: [facility] Work Phone: [facility] Work Phone: [facility]; [facility] Work Phone: [facility] Immunizations Immunization Date Immunization Notes Care Provider Juli calderon 02-12-2023 meningococcal B vacc ine, recombinant, OMV, adjuvanted [address] 02-12-2023 meningococcal oligosaccharide (groups A, C, Y and W-135) diphtheria toxoid conjugate vaccine (MCV4O) [address] 08-05-2020 HPV, unspecified formulation Physician Test [facility] 02-02-2020 influenza virus vacc ine, unspecified formulation [facility] 04-24-2019 meningococcal B vacc ine, fully recombinant Dylan Velarde [facility]; [facility] Work Phone: 04-24-2019 meningococcal polysaccharide (groups A, C, Y and W-135) diphtheria toxoid conjugate vaccine (MCV4P) [facility] Work Phone: 02-14-2019 Influenza virus vaccine [facility] 02-08-2015 Influenza virus vaccine [facility] Payers Date Payer Category Payer Medicaid [id number] 2024 Self-pay [id number] 2023 Medicare [id number] 2022 Unknown 2021 Medicaid [facility] [place] [facility] MEDICAID [id number] 2021-Present [phone] [address] [place] [address] Medicaid [id number] 2021 Medicaid [id number] 2021 Medicare [id number] .[id number] 2021 Medicare (Managed Care) [facility] MEDICARE [id number] 2021 Unknown [id number] 2021 Medicare MEDICARE MEDICAR E A AND B [id number] 2021-Present [phone] [address] [address] [place] [address] Medicare [id number] .[id number] 2019 Medicaid [id number] .[id number] 2019 Medicaid [employer] [id number] 2019-Present [phone] [address] [place] [address] Medicaid [id number] 2018 Unknown [employer] M EDICAL M[employer]UAL [address] xxxxxxxxxxxx 2018-Present [phone] [address] [place] [address] xxxxxxxxxxxx [id number] .[id number] 2013 Unknown [id number] 1988 Unknown [id number] 2.16.840.1.741125.3.579.2 .716 1988 Unknown [id number] 2.16.840.1.160018.3.579.2 .594 1988 Unknown [id number] 2.16840.1.362386.3.579.2 .594 1988 Unknown [id number] 2.16840.1.797564.3.579.2 .594 1988 Unknown [id number] 2.16.840.1.975994.3.579.2 .594 1988 Unknown [id number] 2.16840.1.059743.3.579.2 .594 1988 Unknown [id number] 2.16.840.1.188834.3.579.2 .594 1988 Unknown [id number] 2.16.840.1.200276.3.579.2 .594 1988 Unknown [id number] 2.16.840.1.927180.3.579.2 .594 Unknown [id number] 2.16.840.1.867801.3.579.2 .462 Unknown [id number] 2.16.840.1.839597.3.579.2 .462 Unknown [id number] 2.16.840.1.717539.3.579.2 .462 Unknown [id number] 2.16.840.1.539302.3.579.2 .462 Unknown [id number] 2.16.840.1.781903.3.579.2 .462 Unknown [id number] 2.16.840.1.713675.3.579.2 .462 Unknown [id number] 2.16.840.1.678722.3.579.2 .462 Unknown [id number] 2.16.840.1.811390.3.579.2 .462 Unknown [id number] 2.16.840.1.461464.3.579.2 .462 Unknown [id number] 2.16.840.1.009358.3.579.2 .462 Unknown [id number] 2.16.840.1.125992.3.579.2 .462 Unknown [id number] 2.16.840.1.875996.3.579.2 .462 Unknown [id number] 2.16.840.1.997545.3.579.2 .462 Unknown [id number] 2.16.840.1.675160.3.579.2 .462 Unknown [id number] 2.16.840.1.488941.3.579.2 .462 Unknown [id number] 2.16.840.1.239905.3.579.2 .462 Unknown [id number] 2.16.840.1.458625.3.579.2 .462 Unknown [id number] 2.16.840.1.727852.3.579.2 .462 Worker's Compensation [id number] Social History Date Type Detail Facility Start: 10-07-2019 End: 10-11-2024 Tobacco smoking status NHIS Never smoker [facility] Start: 10-07-2019 End: 10-11-2023 Alcohol intake Current non-drinker of alcohol (finding) [facility] Start: 1990 Sex Assigned At Not on file M [place], [place] Exposure to SARS-CoV -2 (event) Unable to assess [facility] Start: 12-18-2014 End: 10-07-2019 Tobacco use and exposure [facility] Start: 07-06-2021 End: 10-30-2022 Exposure to SARS-CoV-2 (event) Not sure [facility] Start: 02-17-2021 End: 10-29-2022 Tobacco smoking status NHIS Unknown if ever smoked [facility] Start: 10-10-2019 None [facility] Start: 10-10-2019 Alone [facility] Start: 10-11-2019 Non-smoker [facility] Start: 1990 Sex Assigned At Female W [facility] Start: 07-30-2022 End: 07-31-2022 History SDOH IPV Fear 2 [facility] Start: 10-06-2022 End: 10-28-2023 Alcohol intake Lifetime non-drinker (finding) [facility] Start: 07-31-2022 End: 05-14-2023 History of Social function [facility] Start: 07-31-2022 End: 05-14-2023 Humiliation, Afraid, Rape, and Kick questionnaire [HARK] [facility] Within the last year , have you been afraid of your partner or ex-partner? No [facility] Number of Places Deborah ed in the Last Year Not on file [facility] Start: 07-26-2024 End: 08-23-2024 Sex Female (finding) [facility] NEGATED: Highlighted row [facility] Medical Equipment Procedure Code Equipment Code Equipment Origin al Text Equipment Identifier Dates Insertion, vascular access port PORT,POWER 8FR FDA Start: 10-16-2020 Insertion, vascular access port PORT,POWER 8FR FDA Start: 10-16-2020 Insertion, vascular access port PORT,POWER 8FR FDA Start: 10-16-2020 Insertion, vascular access port PORT,POWER 8FR FDA Start: 10-16-2020 Insertion, vascular access port PORT,POWER 8FR FDA Start: 10-16-2020 Insertion, vascular access port PORT,POWER 8FR FDA Start: 10-16-2020 Insertion, vascular access port PORT,POWER 8FR FDA Start: 10-16-2020 Insertion, vascular access port PORT,POWER 8FR FDA Start: 10-16-2020 Insertion, vascular access port PORT,POWER 8FR FDA Start: 10-16-2020 Insertion, vascular access port PORT,POWER 8FR FDA Start: 10-16-2020 Insertion, vascular access port PORT,POWER 8FR FDA Start: 10-16-2020 Insertion, vascular access port PORT,POWER 8FR FDA Start: 10-16-2020 Insertion, vascular access port PORT,POWER 8FR FDA Start: 10-16-2020 Insertion, vascular access port PORT,POWER 8FR FDA Start: 10-16-2020 Insertion, vascular access port PORT,POWER 8FR FDA Start: 10-16-2020 Insertion, vascular access port PORT,POWER 8FR FDA Start: 10-16-2020 Insertion, vascular access port PORT,POWER 8FR FDA Start: 10-16-2020 Insertion, vascular access port PORT,POWER 8FR FDA Start: 10-16-2020 Insertion, vascular access port PORT,POWER 8FR FDA Start: 10-16-2020 Insertion, vascular access port PORT,POWER 8FR FDA Start: 10-16-2020 Insertion, vascular access port PORT,POWER 8FR FDA Start: 10-16-2020 Insertion, vascular access port PORT,POWER 8FR FDA Start: 10-16-2020 Port-10/16/2020 [id number] Start: 10-16-2020 Comment on above: Description: R inter nal jugular powerport Goals Date Patient Goal Desired Activity /State Functional Status Date Assessment Result Facility 06-12-2014 Are you deaf, or do you have serious difficulty hearing No 06/12/2014 2:37 PM Estella Pozo MA No [facility] 06-12-2014 Are you blind, or do you have serious difficulty seeing, even when wearing glasses No 06/12/2014 2:37 PM Estella Pozo MA No [facility] 06-12-2014 Do you have serious difficulty walking or climbing stairs No 06/12/2014 2:37 PM Estella Pozo MA No [facility] 06-12-2014 Do you have difficul ty dressing or bathing No 06/12/2014 2:37 PM Estella Pozo MA No [facility] 06-12-2014 Because of a physica l, mental, or emotional condition, do you have difficulty doing errands alone such as visiting a physician's office or shopping Yes 06/12/2014 2:37 PM Estella Pozo MA Yes [facility] Mental Status Date Assessment Result Facility 10-06-2024 Cognitive function Voice/Name [facility] Work Phone: 08-18-2024 Cognitive function Level Of Cons ciousness Awake;Alert;Appropriate;Fol lows Commands [facility] Work Phone: 10-29-2022 Cognitive function Level Of Cons ciousness Awake;Alert [facility] Work Phone: 08-08-2022 Cognitive function Voice/Name [facility] Work Phone: 02-05-2022 Cognitive function Voice/Name [facility] Work Phone: 01-12-2022 Cognitive function Voice/Name [facility] Work Phone: 10-17-2021 Cognitive function Voice/Name [facility] Work Phone: 08-15-2021 Cognitive function Level Of Cons ciousness Awake;Alert;Appropriate;Fol lows Commands [facility] Work Phone: 06-12-2014 Because of a physica l, mental, or emotional condition, do you have serious difficulty concentrating, remembering, or making decisions No 06/12/2014 2:37 PM EST Estella Francisco MA No [facility] Clinical Notes 01-15-2014 to 10-14-2024 Fritz S[facility] Medic - 10/06/2024 9:49 PM EDT Note Date & Type Note Facility 10-14-2024 Radiology Diagnostic study note [facility] Imaging Services [address] [place], [place] [address] Chest PA and Lateral MR#: [id number] Acct: [id number] Name: DOUG FLANAGAN Rep #: [id number] : 1990 F 34 From: Karthikeyan Montoya MD PCP: Dr. Leander Patel MD Status: R EG CLI Study:Chest PA and Lateral Date of Exam: 10/13/24 Exam# [id number] Ordering Dr: Louise Torrez SHEET METAL WORK FURNACE INSTALLER-Robert PROCEDURE: CHEST PA AND LATERAL 10/13/2024 REASON FOR EXAM: S/P INTUBATION TECHNIQUE: CHEST PA AND LATERAL COMPARISON: 10/06/2024. FINDINGS: Right Port-A-Cath is in good position. The lungs are expanded. There is no demonstrated parenchymal abnormality. There is no demonstrated pleural abnormality. Normal heart and pericardium. Normal mediastinum and shima. Normal visualized pulmonary arteries. Normal visualized aortic arch and descending thoracic aorta. Normal visualized thoracic spine. Normal visualized ribs, clavicles, and shoulders. There is no demonstrated abnormality of the visualized soft tissue structures ofthe upper abdomen. RAD/Chest PA and Lateral IMPRESSION: No evidence for acute abnormality. Reading [facility] CC: SHEET METAL WORK FURNACE INSTALLER-C Louise Torrez; Dr. Leander Patel MD ~ Hosiery Mater: Signed [facility] 10-09-2024 Note HNO ID: [id number] Author: MEL SPARROW RN Service: Care Management Author Type: Registered Nurse Type: Care Mgt Progress Note Filed: 10/09/2024 15:32 Note Text: CARE MANAGEMENT DISCHARGE NOTE SERVICE DATE: October 09, 2024 SERVICE TIME: 3:32 PM Admission Date: 10/06/2024 LOS: 3 days Discharge Arrangement Discharge Arrangement: Home with Relative Services Arranged- n/a Provider Name: follow up with PCP Dylan Velarde Caregiver Assessment Caregiver is ready, willing and able to meet the patient's needs as recommended by the inter-professional team: Yes Name of Caregiver: parents Transportation Arrangements Transportation Arrangements: Car Date of Trip: 10/09/24 Destination: home Handoff Communication: Additional Information: Patient is discharging to parent's home with parents to assist and minor son. Family to transport. No transitional care needs identified. SIGNATURE: Mel Sparrow RN PATIENT NAME: Doug Flanagan DATE: October 09, 2024 TIME: 3:31 PM [facility] 10-09-2024 Note HNO ID: [id number] Author: MEL SPARROW RN Service: Care Management Author Type: Registered Nurse Type: Care Mgt Initial Assessment Filed: 10/09/2024 15:18 Note Text: CARE MANAGEMENT: ASSESSMENT AND DISCHARGE PLAN SERVICE DATE: October 09, 2024 SERVICE TIME: 3:16 PM PCP: Dylan Velarde CNP Primary Contact: Extended Emergency Contact Information Primary Emergency Contact: MashaKaren [place] Mobile Relation: Father Secondary Emergency Contact: Chantell Flanagandy Mobile Relation: Mother Admission Status: Inpatient Insurance Provider: DELFINO SAHA MEDICARE Discharge Planning requested by: Per Department Practice Potential Transition Plans Home Advance Directives Current Advance Directive: None Assessment Technician Attempted to Assist with AD Completion: Yes [...] Be able to go home, General wellness Vaughn of Choice Explained: Vaughn of Choice Given: No Reason Not Given: [...] with 13 year old son. 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 Parents live nearby and provide support, assistance, and transportation as needed. +PCP. +Rx. +DME utilizes shower chair. Pending therapy evals for patient goal of discharging to parents home with her son for a week or two after discharge. Mother to transport. CM to follow for transitional care planning. SIGNATURE: Mel Sparrow RN PATIENT NAME: Doug Flanagan DATE: October 09, 2024 TIME: 3:16 PM [facility] 10-09-2024 Note HNO ID: [id number] Author: MEL SPARROW RN Service: Care Management Author Type: Registered Nurse Type: Care Mgt Progress Note Filed: 10/09/2024 15:31 Note Text: CARE MANAGEMENT PROGRESS NOTE SERVICE DATE: 10/09/2024 SERVICE TIME: 1:30 PM LOS: 3 days IMM Follow Up Copy Given: Yes Copy given to:: Patient Method: In Person SIGNATURE: Mel Sparrow RN PATIENT NAME: Doug Flanagan DATE: October 09, 2024 TIME: 3:30 PM [facility] 10-08-2024 Note HNO ID: [id number] Author: KAREN DOUGHERTY APRN.CNP Service: Neurology ICU Author Type: Nurse Practitioner [...] (Oral) Resp 15 Ht 157.5 cm (5' 2) Wt 73.9 kg (162 lb 14.7 oz) [...] ICU Consent Complete?: No ICU Code Status History assess/Full code by default: Yes, will address [...] and updating family with Staff Physician, Dr. Lujan. Assessment AND Plan 33yr old F hx of MG, migraines and Epilepsy. - Transfer from [facility] w/ breakthrough seizure x2 requiring intubation. Active Hospital Problems as of 10/08/2024 Noted - Resolved POA Hospital Breakthrough seizure (HCC) 10/06/2024 - Present Yes Current Assessment AND Plan See Status Epilepticus * (Principal) Status epilepticus (HCC) 10/06/2024 - Present Yes Current Assessment [...] - MRI wwo contrast when able Epilepsy ([facility]) 10/06/2024 - Present Yes Current Assessment AND Plan Hx of Epilepsy since age 11. Had previously followed with Epilepsy team at [facility], however insurance changed. Home AEDs: Lamictal 250mg BID, Zonegran 200mg qAM/300mg qPM Acute respiratory failure with hypoxia ([facility]) 10/06/2024 - Present Yes Current Assessment AND [...] AND Plan -Without exacerbation -AChR + -Outpatient Ul (more content not included)... [facility] 10-06-2024 Note HNO ID: [id number] Author: FRITZ SUNG Medic Service: ? Author Type: Sand Technician and Firer Locomotive Type: Progress Notes Filed: 10/07/2024 03:30 Note Text: CRITICAL CARE TRANSPORT MEDICAL CONTROL CONSULT NOTE Patient Name: Doug Flanagan Service Date: October 06, 2024 Referring Facility: [facility] Accepting Facility: RE[facility]ON FOR TRANSPORT: seizures REASON FOR CONSULT: sedation CCT MEDICAL CONTROL CONSULT SUMMARY: History, physical exam findings, and available background patient information from [facility] Transport Nurse were reviewed at the time of consult. Pertinent additional information was reviewed as follows: Epic Records In brief, Doug Flanagan is a 34 year old female with a history, known at time of consult, significant for depression, seizures, myasthenia gravis, TBI who presented to [facility] for evaluation of seizure activity. Per the ED patient self administered valium prior to seizure activity. Upon arrival to the ED patient was post ictal and intubated for airway protection. Patient to be transferred to [facility] for further care and neurological evaluation. PLAN: Multiple factors considered including: patient history/condition/trajectory/sta bility, referring and receiving destinations, duration of transport time, medications and therapies available during transport, patient safety, as well as crew capabilities. Orders given for: Propofol titration Plan of care and orders confirmed and read back via telephone with [facility] Transport meat team member, Júnior Sung, Sand Technician SIGNATURE: Rivka Richards APRN.[facility] Acute Care Nurse Practitioner Critical Care Transport [place] 10-06-2024 History of Present illness Narrative Images from the original note were not included. CRITICAL CARE TRANSPORT MEDICAL CONTROL CONSULT NOTE Patient Name: Doug Flanagan Service Date: October 06, 2024 Referring Facility: [facility] Accepting Facility: REASON FOR TRANSPORT: seizures REASON FOR CONSULT: sedation CCT MEDICAL CONTROL CONSULT SUMMARY: History, physical exam findings, and available background patient information from [facility] Transport Nurse were reviewed at the time of consult. Pertinent additional information was reviewed as follows: Epic Records In brief, Doug Flanagan is a 34 year old female with a history, known at time of consult, significant for depression, seizures, myasthenia gravis, TBI who presented to [facility] for evaluation of seizure activity. Per the ED patient self administered valium prior to seizure activity. Upon arrival to the ED patient was post ictal and intubated for airway protection. Patient to be transferred to [facility] for further care and neurological evaluation. PLAN: Multiple factors considered including: patient history/condition/trajectory/sta bility, referring and receiving destinations, duration of transport time, medications and therapies available during transport, patient safety, as well as crew capabilities. Orders given for: Propofol titration Plan of care and orders confirmed and read back via telephone with CCT Transport meat team member, Júnior Sung, Sand Technician SIGNATURE: Rivka Richards APRN.[facility] Acute Care Nurse Practitioner Critical Care Transport documented in this encounter [facility] 10-06-2024 Radiology Diagnostic study note [facility] Imaging Services [address] [place] [address] [id number] Chest 1 View (Portable) MR#: [id number] Acct: [id number] Name: DOUG FLANAGAN Rep #: [id number] : 1990 F 34 From: Wendy Feldman MD PCP: Dr. Leander Patel MD Status: R ER Study:Chest 1 View (Portable) Date of Exam: 10/06/24 Exam# [id number] Ordering Dr: Zulma Jones DO EXAM: XR Chest, 1 View CLINICAL INDICATION: INTUBATION TECHNIQUE: Frontal view of the chest. COMPARISON: No relevant prior studies available. FINDINGS: LUNGS AND PLEURAL SPACES: See below. HEART: Unremarkable. No cardiomegaly. MEDIASTINUM: Unremarkable. Normal mediastinal contour. BONES/JOINTS: Unremarkable. No acute fracture. TUBES, LINES AND DEVICES: Right-sided Mediport with the distal tip in the SVC. No pneumothorax. The endotracheal tube (ETT) is in satisfactory position. Enteric tube tip in the stomach. RAD/Chest 1 View (Portable) IMPRESSION: No acute cardiopulmonary process. Reading Location: [facility] CC: Dr. Leander Patel MD; Dr. Angella Jones DO ~ Hosiery Mater: Signed [facility] 10-06-2024 Radiology Diagnostic study note [facility] Imaging Services [address] [place], [place] [id number] Brain/Head without Contrast MR#: [id number] Acct: [id number] Name: DOUG FLANAGAN Rep #: [id number] : 1990 F 34 From: Lupillo Ambrose MD PCP: Dr. Leander Patel MD Status: R EG ER Study:Brain/Head without Contrast Date of Exa m: 10/06/24 Exam# [id number] Ordering Dr: Jaclyn Taylor PROCEDURE: BRAIN/HEAD WITHOUT CONTRAST 10/06/2024 REASON FOR EXAM: SEIZURE TECHNIQUE: Head CT without intravenous contrast. Coronal and Sagittal reconstruction serieswere provided. One or more dose reduction techniques were used (e.g., Automated exposure control, adjustment of the mA and/or kV according to patient size, use of iterative reconstruction technique. RADIATION DOSE SUMMARY: CTDlvol: 44.99 mGy DLP: 812.98 mGycm COMPARISON: Head CT of 10/29/2022. FINDINGS: Brain: Normal. No extra-axial fluid collection is noted. No orbital abnormality is seen. CSF Spaces: Normal Sinuses/Mastoids: Clear at visualized levels Bones: No fracture or other acute osseous change is seen CT/Brain/Head without Contrast IMPRESSION: No intracranial hemorrhage or other acute process is seen Reading Location: [id number] CC: Dr. Leander Patel MD; BRANDON Orr ~ Hosiery Mater: Signed [facility] 10-04-2024 Nuclear medicine Diagnostic study note [facility] Imaging Services [address] [place] [address] Gastric Emptying Study MR#: [id number] Acct: [id number] Name: DOUG FLANAGAN Rep #: [id number] : 1990 F 34 From: Henrietta Kendall MD PCP: Dr. Leander Patel MD Status: R EG CLI Study:Gastric Emptying Study Date of Exam: 10/03/24 Exam# [id number] Ordering Dr: Katie Mayo PROCEDURE: GASTRIC EMPTYING [...] geometric mean was used to calculate a [id number]-jtpkm. Medications taken in the past 24 hours [...] NORMAL RANGE FOR GASTRIC EMPTYING. Reading Location: [place] [address] CC: Dr. Leander Patel MD; BRANDON Dunaway ~ Hosiery Mater: Signed [facility] 09-14-2024 Progress note [facility] 07-06-2024 Evaluation note Diagnosis Onset Date Resolution Anxiety acute July 06 8:20am Hyperammonemia acute July 06, 2024 8:20am Myasthenia gravis acute July 062024 8:20am Epilepsy chronic July 06 8:20am Encounter to establish care acute July 26, 2024 1:27pm Myasthenia gravis acute July 022024 1:27pm Chronic abdominal pain chronic Ma [facility] 2024 1:27pm Chronic constipation chronic [facility] 2024 1:27pm Epilepsy chronic July 26 1:27pm [facility] Work Phone: 1(932) 407-961403-06-2025 Evaluation note* Diagnosis Onset Date Resolution Status Admit Date Anxiety acute July 06 8:20am Hyperammonemia acute July 06, 2024 8:20am Myasthenia gravis acute July 062024 8:20am Epilepsy chronic July 06 8:20am Encounter to establish care acute July 26, 2024 1:27pm Myasthenia gravis acute July 022024 1:27pm Chronic abdominal pain chronic Ma [facility] 2024 1:27pm Chronic constipation chronic [facility] 2024 1:27pm Epilepsy chronic July 26 1:27pm Bloating acute August 16 7:44am Chronic constipation chronic [facility] 2024 7:44am [facility] Work Phone: 1(207) 553-634103-06-2025 Evaluation note* Diagnosis Onset Date Resolution Status Admit Date Anxiety acute July 06 8:20am Hyperammonemia acute July 06, 2024 8:20am Myasthenia gravis acute July 062024 8:20am Epilepsy chronic July 06 8:20am Encounter to establish care acute July 26, 2024 1:27pm Myasthenia gravis acute July 022024 1:27pm Chronic abdominal pain chronic [facility] h 2024 1:27pm Chronic constipation chronic [facility] 2024 1:27pm Epilepsy chronic July 26 1:27pm Bloating acute August 16 7:44am Chronic constipation chronic [facility] 2024 7:44am Bloating acute September 14, 2024 7:40am Chronic constipation chronic September 14, 2024 7:40am [facility] Work Phone: 1(426) 397-713403-06-2025 Evaluation note* Diagnosis Onset Date Resolution Status Admit Date Anxiety acute July 06 8:20am Hyperammonemia acute July 06, 2024 8:20am Myasthenia gravis acute July 062024 8:20am Epilepsy chronic July 06 8:20am Encounter to establish care acute July 26, 2024 1:27pm Myasthenia gravis acute July 022024 1:27pm Chronic abdominal pain chronic Ma [facility] 2024 1:27pm Chronic constipation chronic [facility] 2024 1:27pm Epilepsy chronic July 26 1:27pm Bloating acute August 16 7:44am Chronic constipation chronic [facility] 2024 7:44am Bloating acute September 14, 2024 7:40am Chronic constipation chronic September 14, 2024 7:40am Nausea acute October 13 2:42pm Pharyngeal damage during air way intubation acute October 13, 2024 2:42pm Shortness of breath acute October 13, 2024 2:42pm [facility] Work Phone: 1([phone]) 766-235903-06-2025 Evaluation note* Diagnosis Onset Date Resolution Status Admit Date Anxiety acute July 06 8:20am Hyperammonemia acute July 06, 2024 8:20am Myasthenia gravis acute July 062024 8:20am Epilepsy chronic July 06 8:20am Encounter to establish care acute July 26, 2024 1:27pm Myasthenia gravis acute July 022024 1:27pm Chronic abdominal pain chronic Ma [facility] 2024 1:27pm Chronic constipation chronic [facility] 2024 1:27pm Epilepsy chronic July 26 1:27pm Bloating acute August 16 7:44am Chronic constipation chronic [facility] 2024 7:44am Bloating acute September 14, 2024 7:40am Chronic constipation chronic September 14, 2024 7:40am Hospital discharge follow-up acute October 13, 2024 2:42pm Nausea acute October 13 2:42pm Pharyngeal damage during air way intubation acute October 13, 2024 2:42pm Shortness of breath acute October 13, 2024 2:42pm [facility] Work Phone: 1(527) 554-706012-11-2024 Evaluation note* Diagnosis Onset Date Resolution Status Admit Date Fatigue acute April 12, 2024 2:40pm Myasthenia gravis acute Decembe r 2023 2:40pm Epilepsy chronic April 12, 2024 2:40pm Anxiety acute July 06 8:20am Hyperammonemia acute July 06, 2024 8:20am Myasthenia gravis acute July 062024 8:20am Epilepsy chronic July 06 8:20am Encounter to establish care acute July 26, 2024 1:27pm Myasthenia gravis acute July 022024 1:27pm Chronic abdominal pain chronic [facility] 2024 1:27pm Chronic constipation chronic [facility] 2024 1:27pm Epilepsy chronic July 26 1:27pm [facility] Work Phone: 1(966) 307-572410-21-2024 Telephone encounter Note* Telephone Encounter - Lien Fuller - 02/21/2024 10:00 AM EDT Medication Refill Request ?Last Office Visit: 11/01/2023-[facility] ?Next Office Visit: 03/27/2024-[facility] REFILLS REQUESTED: Requested Prescriptions Pending Prescriptions Disp Refills Valtoco 10 MG Dose 10 MG/0.1ML Liquid [Pharmacy Med Name: Valtoco 10 MG Dose 10 MG/0.1ML Nasal Liquid] 2 Each 0 Sig: USE DIRECTED NASALLY NEEDED [facility]10-21-2024 Miscellaneous Notes* Telephone Encounter - Lien Fuller - 02/21/2024 10:00 AM EDT Medication Refill Request ?Last Office Visit: 11/01/2023-[facility] ?Next Office Visit: 03/27/2024-[facility] REFILLS REQUESTED: Requested Prescriptions Pending Prescriptions Disp Refills Valtoco 10 MG Dose 10 MG/0.1ML Liquid [Pharmacy Med Name: Valtoco 10 MG Dose 10 MG/0.1ML Nasal Liquid] 2 Each 0 Sig: USE DIRECTED NASALLY NEEDED [facility] NoteHNO ID: [id number] Author: MAYA PUENTE APRN.PLATFORM MATERIAL HANDLING SUPERVISOR Service: ? Author Type: Nurse Practitioner Type: Progress Notes Filed: 10/11/2023 09:46 Note Text: Subjective HPI HPI Doug Flanagan is a 33 year old female who presents today for CC of st, ear pain. This started 2 days ago. Has tried otc medication for relief. Symptoms are worsened by nothing. Denies possibility of being . nonsmoker. 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 escitalopram oxalate (LEXAPRO) 10 mg tablet Take 10 mg by mouth once daily. levonorgestrel (MIRENA) 20 mcg/24 hours (8 yrs) 52 mg IUD 1 Each by INTRAUTERINE route one time only. lamoTRIgine ER (LAMICTAL XR) 100 mg 24 hr tablet Take two (2.0) in AM and four(4.0) tablets at bedtime (Patient taking differently: Take two (1) in AM and four(4.0) tablets at bedtime) zonisamide (ZONEGRAN) 100 mg capsule Take 3 capsules by mouth once daily. acetaminophen (TYLENOL) 325 mg tablet Take 650 mg by mouth every 6 hours as needed. benzonatate (TESSALON PERLES) 100 mg capsule Take 1 capsule by mouth three times daily as needed for cough. peg 3350-Electrolytes (GOLYTELY) 236-22.74-6.74 -5.86 gram suspension Sip on it until gone (Patient not taking: Reported on 07/12/2022) apixaban (ELIQUIS) 5 mg tab(s) Take 5 mg by mouth twice daily. rOPINIRole (REQUIP) 0.5 mg tablet take 1 tablet by mouth 1-3 HOURS PRIOR TO BEDTIME OXcarbazepine (TRILEPTAL) 150 mg tablet Take 150 mg by mouth daily at bedtime. LORazepam (ATIVAN) 1 mg tablet take 1 tablet by mouth if needed for SEIZURE GERATER THAN 5 MINUTES DIRECTED (FOR 30 DAYS) FAMILY HISTORY Problem Relation Age of Onset Headache Mother Multiple Sclerosis Sister Headache Maternal Grandfather Seizures Maternal Aunt Traumatic epilepsy Colon Cancer No Family History Social History Tobacco Use Smoking status: Never Smokeless tobacco: Never Vaping Use Vaping Use: Never used Substance Use Topics Alcohol use: No Drug use: No Review of Systems Constitutional: Negative for fever. HENT: Positive for ear pain and sore throat. Negative for congestion, ear discharge and nosebleeds. Respiratory: Negative for cough, shortness of breath and wheezing. Musculoskeletal: Negative for neck pain. Objective Blood pressure 120/80, pulse 102, temperature 36.3 ?C (97.3 ?F), resp. rate 16, weight 75 kg (165 lb 5.5 oz), last menstrual period 03/18/2022, SpO2 98%. Physical Exam Constitutional: General: She is not in acute distress. Appearance: She is not toxic-appearing or diaphoretic. HENT: Head: Normocephalic and atraumatic. Right Ear: Hearing, tympanic membrane, ear canal and external ear normal. Left Ear: Hearing, tympanic membrane, ear canal and external ear normal. Nose: Nose normal. Mouth/Throat: Lips: [place]. Mouth: Mucous membranes are moist. Pharynx: Uvula midline. Posterior oropharyngeal erythema present. No pharyngeal swelling, oropharyngeal exudate or uvula swelling. Eyes: General: Lids are normal. No scleral icterus. Right eye: No discharge. Left eye: No discharge. Conjunctiva/sclera: Conjunctivae normal. Pupils: Pupils are equal, round, and reactive to light. Neck: Trachea: Trachea normal. Cardiovascular: Rate and Rhythm: Normal rate and regular rhythm. Heart sounds: Normal heart sounds. Pulmonary: Effort: Pulmonary effort is normal. Breath sounds: Normal breath sounds. Musculoskeletal: Cervical back: Normal range of motion and neck supple. Lymphadenopathy: Cervical: No cervical adenopathy. Right cervical: No superficial cervical adenopathy. Left cervical: No superficial cervical adenopa (more content not included)... [place]06-10-2024 History of Present illness Narrative* Maya Puente APRN.PLATFORM MATERIAL HANDLING SUPERVISOR - 10/11/2023 8:59 AM EDT Subjective HPI HPI Doug Flanagan is a 33 year old female who presents today for CC of st, ear pain. This started 2 days ago. Has tried otc medication for relief. Symptoms are worsened by nothing. Denies possibility of being . nonsmoker. 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 escitalopram oxalate (LEXAPRO) 10 mg tablet Take 10 mg by mouth once daily. levonorgestrel (MIRENA) 20 mcg/24 hours (8 yrs) 52 mg IUD 1 Each by INTRAUTERINE route one time only. lamoTRIgine ER (LAMICTAL XR) 100 mg 24 hr tablet Take two (2.0) in AM and four(4.0) tablets at bedtime (Patient taking differently: Take two (1) in AM and four(4.0) tablets at bedtime) zonisamide (ZONEGRAN) 100 mg capsule Take 3 capsules by mouth once daily. acetaminophen (TYLENOL) 325 mg tablet Take 650 mg by mouth every 6 hours as needed. benzonatate (TESSALON PERLES) 100 mg capsule Take 1 capsule by mouth three times daily as needed for cough. peg 3350-Electrolytes (GOLYTELY) 236-22.74-6.74 -5.86 gram suspension Sip on it until gone (Patientnot taking: Reported on 07/12/2022) apixaban (ELIQUIS) 5 mg tab(s) Take 5 mg by mouth twice daily. rOPINIRole (REQUIP) 0.5 mg tablet take 1 tablet by mouth 1-3 HOURS PRIOR TO BEDTIME OXcarbazepine (TRILEPTAL) 150 mg tablet Take 150 mg by mouth daily at bedtime. LORazepam (ATIVAN) 1 mg tablet take 1 tablet by mouth if needed for SEIZURE GERATER THAN 5 MINUTES DIRECTED (FOR 30 DAYS) FAMILY HISTORY Problem Relation Age of Onset Headache Mother Multiple Sclerosis Sister Headache Maternal Grandfather Seizures Maternal Aunt Traumatic epilepsy Colon Cancer No Family History Social History Tobacco Use Smoking status: Never Smokeless tobacco: Never Vaping Use Vaping Use: Never used Substance Use Topics Alcohol use: No Drug use: No Review of Systems Constitutional: Negative for fever. HENT: Positive for ear pain and sore throat. Negative for congestion, ear discharge and nosebleeds. Respiratory: Negative for cough, shortness of breath and wheezing. Musculoskeletal: Negative for neck pain. Objective Blood pressure 120/80, pulse 102, temperature 36.3 C (97.3 F), resp. rate 16, weight 75 kg (165 lb 5.5 oz), last menstrual period 03/18/2022, SpO2 98%. Physical Exam Constitutional: General: She is not in acute distress. Appearance: She is not toxic-appearing or diaphoretic. HENT: Head: Normocephalic and atraumatic. Right Ear: Hearing, tympanic membrane, ear canal and external ear normal. Left Ear: Hearing, tympanic membrane, ear canal and external ear normal. Nose: Nose normal. Mouth/Throat: Lips: [place]. Mouth: Mucous membranes are moist. Pharynx: Uvula midline. Posterior oropharyngeal erythema present. No pharyngeal swelling, oropharyngeal exudate or uvula swelling. Eyes: General: Lids are normal. No scleral icterus. Right eye: No discharge. Left eye: No discharge. Conjunctiva/sclera: Conjunctivae normal. Pupils: Pupils are equal, round, and reactive to light. Neck: Trachea: Trachea normal. Cardiovascular: Rate and Rhythm: Normal rate and regular rhythm. Heart sounds: Normal heart sounds. Pulmonary: Effort: Pulmonary effort is normal. Breath sounds: Normal breath sounds. Musculoskeletal: Cervical back: Normal range of motion and neck supple. Lymphadenopathy: Cervical: No cervical adenopathy. Right cervical: No superficial cervical adenopathy. Left cervical: No superficial cervical adenopathy. Skin: Findings: No rash. Neurological: Mental Status: She is alert and oriented to person, place, and time. ASSESSMENT/PLAN: 1. Sore throat - ICD9: 462, ICD10: J02.9 (primary diagnosis) - suspect viral - Group A strep molecular testing negative - Discussed supportive care treatment with fluids, rest and analgesia. - The patient should follow up in 3-5 days if symptoms persist or worsen - ALERE STREP A TEST (AG) 2. Otalgia of right ear - ICD9: 388.70, ICD10: H92.01 Possibly referred from current viral pharyngitis. Maya Puente APRN.ROLF [facility] History of Present illness Narrative* Talya Rodriguez APRN-ROLF - 08/12/2023 12:00 PM EDT Images from the original note were not included. [facility] Doug Flanagan was seen in the [facility] on 08/12/2023. She is here today for a follow-upalone. She was last seen on 11/13/[address] Edgar Ayers MD. History of Present Illness Doug is a 33 y.o. 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 Her events began at age 11 years of age; start as staring off/looking shocked>generalized tonic clonic seizure(s) with loss of awareness>full body shaking. Reportedly has a breakthrough seizure every 1.5 years. On 10/29/22 had breakthrough seizures that began while at home with a drop/fall>arms stiffen>eyes deviate; with first seizure able to communicate to son to get her . She had her rescue medication administered and seizure aborted. Taken to outside hospital ED where she was evaluated and ready to be discharged when another seizure occurred. Arm stiffening>tonic clonic seizure. Transferred to [facility] where her lamictal dose was adjusted; appointment made to follow up as outpatient in epilepsy clinic. Primary concern at the visit today is the increased falls she has had since about May; although, she has not fallen since discharge from the hospital. Before admission to the hospital, falls wereoccurring daily. The patient describes these falls as her legs suddenly going out. She will drop tothe floor. No head trauma with any of her previous falls. Immediately after falling, her she is unable to move her arms and legs and they feel heavy like bricks. Over the course of about 10 minutes, she begins to regain full function of her extremities. She denies loss of consciousness with theseepisodes. She considers these to be drops more than falls. She does not feel that the falls are from fatigue related to her MG. Continued falls. Lamotrigine increasaed to 200g in AM and 250mg SR in PM. Lamotrigine and zonisamide levels ordered, not obtained. 08/16/23 INTERVAL HISTORY: Has had double vision since concussion in June 2023. Since the last visit, has not experienced breakthrough seizures; most recent in October 2022. She relays that the first thought she has when waking up-am I going to have a seizure today? She notes that there are episodes of leg weakness going upstairs but no loss of consciousness. Oriented. Was aware of everything that was occurring. When sleeping she will jerk when she wakes up sometimes but only upon waking and never noted at other times throughout the day. Pertinent Seizure History Anti-Seizure Medication Information: -Current anti-seizure medication: lamotrigine (Lamictal) 200mg tab-1 tab daily AND 250mg tab SR-1 tab daily at bedtime; zonisamide (Zonegran) 100mg caps-2 caps in AM and 3 caps at bedtime -Past anti-seizure medication: levatiracetam (Keppra) , topiramate (Topamax) , and phenytoin (Dilantin) -Rescue anti-seizure medication: diazepam (Valtoco) nasal spray and lorazepam (Ativan) oral Childbearing Age Woman with Epilepsy: -IUD in place -Patient taking supplemental Folate: prescribed but not taking Labs: -02/12/23: normal -12/14/22: zonisamide and lamictal levels ordered, not drawn Neurodiagnostics: -No EMU admissions at [facility] noted Neuroimaging: -08/01/22 MRI b +/-: normal Social Factors: Lives with spouse and minor children. Chooses NOT drive. Is on disability. 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 Past Family History: family history includes Breast Cancer in her maternal grandmother; Coronary Artery Disease in her maternal grandfather; Intellectual Disability/DD/Autism in her son; Multiple Sclerosis in her sister; No known problems in her brother, father, and mother. Past Social History: reports that she has never smoked. She has never used smokeless tobacco. She reports that she does not drink alcohol and does not use drugs. Past Surgical History: has a past surgical history that includes appendectomy; arthroscopy hip w/ labral repair (Right); thymectomy transcervical approach robotic; replacement central venous access device w/ port pump (Right); and insertion cvc tunneled w/ port pump (Right, 10/16/2020). Allergies: is allergic to iodides, levetiracetam, phenytoin, prochlorperazine, shellfish-derived products, soybean oil, and penicillins. REVIEW OF SYSTEMS Review of Systems: Negative except for those things mentioned in the HPI. PHYSICAL EXAM BP 122/72 (BP Location: Left arm, BP Position: Sitting) Pulse 87 Temp 97.9 F (36.6 C) (Infrared) Wt 76.2 kg (168 lb) BMI 29.76 kg/m Smoking Status Never Body mass index is 29.76 kg/m . Brief Exam: General appearance: well-nourished, well-developed, appears stated age. Patient is alert, oriented to person, place, day, and date. Eye movements are full and conjugate in all directions. No nystagmus. Finger to Nose - normal bilaterally. Rapid alternating movements: normal bilaterally Abnormal movements: none Able to perform tandem walking without difficulties. Skin: no rash identified Assessment and Plan Assessment: Doug is a 33 y.o. 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 Her events began at age 11 years of age; start as staring off/looking shocked >generalized tonic clonic seizure(s) with loss of awareness>full body shaking. Reportedly hasa breakthrough seizure every 1.5 years. Primary concern at the visit today is the increased falls she has had since about May; although, she has not fallen since discharge from the hospital. Before admission to the hospital, falls wereoccurring daily. The patient describes these falls as her legs suddenly going out. She will drop tothe floor. No head trauma with any of her previous falls. Immediately after falling, her she is unable to move her arms and legs and they feel heavy like bricks. Over the course of about 10 minutes, she begins to regain full function of her extremities. She denies loss of consciousness with theseepisodes. She considers these to be drops more than falls. She does not feel that the falls are from fatigue related to her MG. Continued falls. Lamotrigine increasaed to 200g in AM and 250mg SR in PM. Lamotrigine and zonisamide levels ordered, not obtained. Plan: Localization-related (focal) (partial) idiopathic epilepsy and epileptic syndromes with seizures oflocalized onset, intractable, without status epilepticus -Please continue your current dose of lamotrigine (Lamictal) 200mg tab-1 tab daily AND 250mg tab SR-1 tab daily at bedtime and zonisamide (Zonegran) 100mg caps-2 caps in AM and 3 caps at bedtime You have 24 hours to make up a missed dose. Please make up the dose within a day to help prevent breakthrough seizures. -A refill for your Lexapro has been sent to your pharmacy on file. -Factors that lower seizure threshold include anti-seizure medication non- adherence, extreme temperature changes, sleep deprivation, acute illness, decongestants, stress, fatigue and others. -Rescue medication: diazepam (Valtoco) nasal spray. A refill for the Valtoco has been sent to your pharmacy on file. The first fill for it scheduled for 01/02/24. -Reviewed previous pertinent imaging including brain CT/MRI, EEG results and bloodwork. The following test(s) have been ordered today: none -We discussed driving restrictions and she is not restricted but she chooses not to drive. She is aware of the need to be seizure free for six months prior to driving if she experiences a breakthrough seizure with loss of consciousness or impaired awareness. She was informed of the risk of injury and associated with driving with uncontrolled seizures. She verbalized an understanding. -We reviewed the following safety issues: occupation/work related injuries including not to work inclose proximity of machines with moving parts, not to work in high places, bathing/swimming, falls/injury prevention, and risk for skin mcdonald. We reviewed seizure first aid, seizure rescue medications and when to call . We discussed seizure first aid: Generally speaking, emergency staff shouldbe notified for seizure activity lasting longer than 5 minutes. Other possible emergencies include head injury, heaving a seizure while in water, and seeking assistance if the patient doesn't return to baseline in a timely manner. It is impossible to document every situation in which emergency personal should be notified. Thus, staff should seek emergency assistance anytime they are concerned with the patients status. -Pursuant to the 2017 guidelines of the AAN regarding sudden unexpected in epilepsy (SUDEP), she was warned of his 1:1000 risk of mortality associated with her generalized tonic-clonic seizures(GTCS), and the need to lower this risk with compliance to an effective anti-seizure medication (ASM) regimen. She understood, and endeavors to work closely with our clinic toward this important goal. Encouraged use of [employer] to send messages to provider as needed for questions and concerns or can call our clinic @ [phone]. She will return on 11/01/23 at 1:00p at [facility] or sooner if clinically indicated. Signed, Talya Rodriguez APRN-ROLF [facility] Department of Neurology - Epilepsy Division [address] [place] [address] - 7th floor [place] [address] Pager: [phone] Time to complete visit: I spent approximately 68 minutes reviewing the chart prior to the appointment, in face to face counseling with the patient, and with documentation after the visit. Note to patient: The Century Cures Act makes medical notes like these available to patients inthe interest of transparency. However, be advised this is a medical document. It is intended as [id number] communication. It is written in medical language and may contain abbreviations or verbiagethat are unfamiliar. It may appear blunt or direct. Medical documents are intended to carry relevant information, facts as evident, and the clinical opinion of the practitioner. * Shu Weaver - 08/12/2023 12:00 PM EDT Double vision + Dizziness - Sleepiness + Blurred Vision - Unsteadiness - Shaky Hands - Upset Stomach + Weight gain - Headaches - Nervousness - Depression - Memory Problems + Disturbed Sleep - Concentrating - Rashes - Hair Loss - Tiredness + Constipation + Are you interested in learning about clinical trials for treatment of your epilepsy that we offer at the [facility]? No If you have tried 2 or 3 anti-seizure medications and your seizures are still not controlled, are you interested in learning about surgical options for your epilepsy that we can offer at the [facility]? No [facility] Instructions* Patient Instructions* EDITH Fields - 08/12/2023 12:00 PM EDT Images from the original note were not included. -Please continue your current dose of lamotrigine (Lamictal) 200mg tab-1 tab daily AND 250mg tab SR-1 tab daily at bedtime and zonisamide (Zonegran) 100mg caps-2 caps in AM and 3 caps at bedtime You have 24 hours to make up a missed dose. Please make up the dose within a day to help prevent breakthrough seizures. -A refill for your Lexapro has been sent to your pharmacy on file. -Factors that lower seizure threshold include anti-seizure medication non- adherence, extreme temperature changes, sleep deprivation, acute illness, decongestants, stress, fatigue and others. -Rescue medication: diazepam (Valtoco) nasal spray. A refill for the Valtoco has been sent to your pharmacy on file. The first fill for it scheduled for 01/02/24. -Reviewed previous pertinent imaging including brain CT/MRI, EEG results and bloodwork. The following test(s) have been ordered today: none -We discussed driving restrictions and she is not restricted but she chooses not to drive. She is aware of the need to be seizure free for six months prior to driving if she experiences a breakthrough seizure with loss of consciousness or impaired awareness. She was informed of the risk of injury and associated with driving with uncontrolled seizures. She verbalized an understanding. -We reviewed the following safety issues: occupation/work related injuries including not to work inclose proximity of machines with moving parts, not to work in high places, bathing/swimming, falls/injury prevention, and risk for skin mcdonald. We reviewed seizure first aid, seizure rescue medications and when to call . We discussed seizure first aid: Generally speaking, emergency staff shouldbe notified for seizure activity lasting longer than 5 minutes. Other possible emergencies include head injury, heaving a seizure while in water, and seeking assistance if the patient doesn't return to baseline in a timely manner. It is impossible to document every situation in which emergency personal should be notified. Thus, staff should seek emergency assistance anytime they are concerned with the patients status. -Pursuant to the 2017 guidelines of the AAN regarding sudden unexpected in epilepsy (SUDEP), she was warned of his 1:1000 risk of mortality associated with her generalized tonic-clonic seizures(GTCS), and the need to lower this risk with compliance to an effective anti-seizure medication (ASM) regimen. She understood, and endeavors to work closely with our clinic toward this important goal. With any anti-seizure medication, you may initially notice side effects of fatigue, drowsiness, unsteadiness, dizziness. Other possible side effects include nausea, abdominal pain, headache, blurry or double vision, slurred speech, and mood changes. Should side effects persist or become intolerable, please call the [facility] Neurology Clinic at [phone]. If you develop a rash while taking your anti-seizure medication, please contact our clinic immediately or notify another healthcare professional as this may be potentially life-threatening. If you are unable to reach a healthcare professional, go to the emergency room or call for further evaluation. Taking anti-seizure medications may result in an increased risk of congenital abnormalities in the offspring of women with epilepsy. If you are a female of child-bearing potential, it is recommended that you take supplementary folic acid, as this medication may decrease this risk. You should take folic acid daily (at least 400 mcg daily). Should you find out you are , please contact us immediately. On weekends or after regular office hours, a neurologist is infection prevention coordinator for urgent issues. Call the neurology office number ([phone]) to reach the neurologist infection prevention coordinator if you are continuing to experience many more seizures than usual despite use of your rescue medications. Please try to remember that the neurologist infection prevention coordinator may not have access to your complete medical record and may not be as familiar with your history. If you have access through [employer], you can contact us through that system as well. If you have documents that need completed or sent to our clinic, please have them faxedto [phone]. It is always best to call during regular office hours when a nurse can talk with you, review your medical record, and talk to your managing neurologist or nurse practitioner. Also, please remember that routine refills are not urgent, and if needed, please try to call duringworking hours and allow 2-3 working days to process the refill. Please contact your pharmacy to seeif the refill is ready for you to picker and packer. Seizure First Aid Training Can Be Found Here (it's free!): [email or web address] documented in this encounter[facility] History of Present illness Narrative* EDITH Brown - 08/12/2023 9:20 AM EDT I saw your patient Doug Flanagan today in follow up for MG in the neurology clinic at [facility] the [facility]. CURRENT HISTORY: Since her last visit, she has since switched to our infusion clinic to get her Ultomrois. She feelsthe effects lasts longer, like the 8 weeks Improvement include lifting her arms above head and less hand cramping/ clawing. Legs can get tired and can feel heavy. She has done PT in the past and she feels like it makes her worst. Last Ultormiris infusion July 2023. She recently had a concussion this past Jun due to a fall. Fell down the stairs and hit her head onconcrete. She did go to the hospital for evaluation. I have reviewed recent labs and other tests pertinent to the patient's visit. Other than as noted above and in the chart, there is no change in the past medical, surgical , family, or social history since 2023. HISTORY OF PRESENT ILLNESS: As you know, she is a 32 y.o. with right handed female who presents with myasthenia gravis which started in 2017. She started to fall, tripping over her feet. She was dropping things, had diplopia, and slurred speech. She was initially told these sxs psychological. The sxs progressed. 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 She noted difficulty with getting up from the floor. She was diagnosed and followed by Arthur Gilmore MD . She was placed on prednisone. THe seizures worsened and she [place] weaker and had more shaking. She tried mestinon and had a svere migraine and hervision was blurred. On cellcept her sxs worsened. Cellcept was tried with no clear benefit but dosewas uncertain. After the thymectomy, she was started on soliris. But she continued to have episodes of falling anddropping items. She felt like the soliris was wearing off after 1 week. On ultomiris she started doing better. She was able to do many ADLS, play with her son, do her hobbies for about 5 months. Thenit was stopped because insurance stopped paying for this. She had a crisis and responded to 5 plasma exchanges ) July 2022. August 28, 2022 she finally received another dose of ultomiris. (She did not have a booster dose since she was off for 4 months. HEr sxs are worse. She is falling more, choking more, using.her hands. general ADLS etc.. She has also been seen at the [facility] for seizures. She was initially seen at [facility] Previous diagnostic workup for myasthenia gravis: Test name Date Result AChR antibodies blocking 2019 41 binding 2018 78.6 modulating 2019 52 Striated muscle MUSK antibodies LRP4 antibodies CMS gene testing Chest CT ([place]) 2017 normal Repetitive nerve stimulation Single fiber EMG Brain imaging (MRI) 2022 nl Thymus pathology 2018 Follicular hyperplasis MRI C and T spine 2022 1. Normal appearance of the cervical and thoracic spinal cord. Negative study. 2. Incidental 9 mm osseous lesion in the parasymphysis of the left hemimandible which is most likely a odontogenic inflammatory lesion but otherwise not characterized on this exam. RF 2016 neg TSH 2015 2021 1.780 1.62 B12 2015 528 Immunosupression history: Test name Date Result TPMT Testing (for Imuran) TB skin test Quantiferon Hepatitis B sceen 2022 s AB- pos s-AG- neg Hepatitis C screen Bone density Mycophenolate REMS consent Shringrix menningococal vaccine Yes but not sure which ones PATRICIA virus AB Eye exam PCP prophylaxis Medication name Dates Dose Effective? Complications soliris ultimoris JULY 2023 steroids 10-20 (nax) ??Seizures??, increased weakness. mestion Tried 2 doses Migraine blurred vision cellcept 500 mg tabs dosing Not clear No benefit thymectomy 2018 Current Outpatient Medications Medication Sig Escitalopram 10 MG tablet Take 1 tablet by mouth at bedtime. lamoTRIgine 200 MG tablet Take 1 tablet by mouth daily. To be taken in addition to 250mg in PM LamoTRIgine 250 MG Tab SR 24 HR Take 1 tablet by mouth at bedtime. Ravulizumab-cwvz (Ultomiris) 300 MG/30ML Solution 130 mL by Intravenous route every 56 days. Valtoco 10 MG Dose 10 MG/0.1ML Liquid 10 mg by Nasal route as needed. zonisamide 100 MG capsule Take 2 tablets by mouth in the am and 3 caps at bedtme Levonorgestrel (Mirena, 52 MG,) 20 MCG/DAY 1 Intra Uterine Device by Intrauterine route once. (Patient not taking: Reported on 08/12/2023) REVIEW OF SYSTEMS: Weight Loss/gain Diarrhea/Constipation Skin changes Vision loss Nausea Muscle ache/pain Double vision Walking problems Muscle twitches Hearing loss Falls Loss of muscle mass Shortness of breath Difficulty chewing/swallowing Depressed mood Cannot lie flat Choking Behavior changes Cannot exercise Bladder/bowel incontinence Memory/thinking problems Fainting Cannot empty bladder Sleep problems Voice changes Sensation changes Sexual function problems Headaches Heart palpitations Back pain positive if marked, remainder of 14 point ROS negative. PHYSICAL EXAM: BP 129/62 (BP Location: Left arm, BP Position: Sitting) Pulse 104 Temp 97.7 F (36.5 C) (Infrared) Ht 1.6 m (5' 3) Wt 76.2 kg (168 lb) BMI 29.76 kg/m Smoking Status Never GENERAL: She is in no acute distress. She is alert and oriented. CARDIOVASCULAR: regular rate and rhythm. RESPIRATORY: clear to auscultation bilaterally. HEENT: pupils are round, equal and react to light. Sclera are clear. SKIN: no rashes CRANIAL NERVES: Extra ocular muscles are full, face is weak about cheek puff and symmetric. Palate elevates well.Tongue is strong. MOTOR: Bulk and tone are normal. NF5- / NE 5- SA EE EF WE WF FF FE ThAb Sandra Left 4 5 5 Right 4 5 5 HF KE KF DF PF Inv Ev HAb HAd Left 4- 5 5 Right 4- 5 5 GAIT AND COORDINATION: Narrow based and steady with normal arm swing ASSESSMENT /PLAN: This is a 32 y.o. female with MG. She continues to have facial weakness and bilateral HF weakness. We discuss exercise options for her to pursue. She is doing well on Ultomiris infusions. She would like to continue receiving these infusions. MG -ADL = 5 PLAN Continue Ultomiris infusions Consider starting aquatic therapy for exercise. Referral to Exercise is Medicine she will continue to have regular blood work to monitor for side effects associated with her treatment regimen. She will return in followup 6 months I have spent 40 minutes in pre-visit chart review (including recent lab and imaging results), face to face time with the patient, and post-visit documentation. For all critical or time sensitive results related to any diagnostic tests generated during this appointment, please contact the on-call Neuromuscular attending Neurologist found in web exchange or pageable through the switchboard ([phone]) [facility] Instructions* Patient Instructions* EDITH Brown - 08/12/2023 9:20 AM EDT Continue your Ultomiris infusions Exercise is Medicine program Aquatic therapy/ exercise programs. This would be a great starting point for your exercise. documented in this encounterOS[facility]01-19-[facility]24 Telephone encounter Note* Telephone Encounter - Rupal Phillips MA - 05/21/2023 10:54 AM EST Images from the original note were not included. *Documentation only- I did not speak with the patient. Received fax from [employer] stating they provided patient with a temporary supply ofLamotrigine ER 250 mg on 05/19/2023. This drug is not covered on formulary. [facility] Miscellaneous Notes* Telephone Encounter - Rupal Phillips MA - 05/21/2023 10:54 AM EST Images from the original note were not included. *Documentation only- I did not speak with the patient. Received fax from [employer] stating they provided patient with a temporary supply ofLamotrigine ER 250 mg on 05/19/2023. This drug is not covered on formulary. documented in this encounterOS[facility]10-13-[facility]23 History of Present illness Narrative* Edgar Ayers MD - 02/12/2023 9:30 AM EDT For this encounter, I was in the clinic and immediately available during the infusion visit if needed. I did not personally examine the patient. Edgar Ayers MD Candy Packer, Department of Neurology, Epilepsy Section [facility] documented in this encounterOSU [facility]08-03-2023 History of Present illness Narrative* EDITH Brown - 12/03/2022 2:40 PM EDT I saw your patient Doug Flanagan today in follow up for MG in the neurology clinic at the [facility] at the [facility]. HISTORY OF PRESENT ILLNESS: As you know, she is a 32 y.o. right handed female who presents with myasthenia gravis which startedin 2017. She started to fall, tripping over her feet. She was dropping things, had diplopia, and slurred speech. She was initially told these sxs psychological. The sxs progressed. 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 She noted difficulty with getting up from the floor. She was diagnosed and followed by Arthur Gilmore MD . She was placed on prednisone. THe seizures worsened and she [place] weaker and had more shaking. She tried mestinon and had a svere migraine and hervision was blurred. On cellcept her sxs worsened. Cellcept was tried with no clear benefit but dosewas uncertain. After the thymectomy, she was started on soliris. But she continued to have episodes of falling anddropping items. She felt like the soliris was wearing off after 1 week. On ultomiris she started doing better. She was able to do many ADLS, play with her son, do her hobbies for about 5 months. Thenit was stopped because insurance stopped paying for this. She had a crisis and responded to 5 plasma exchanges ) July 2022. August 28, 2022 she finally received another dose of ultomiris. (She did not have a booster dose since she was off for 4 months. HEr sxs are worse. She is falling more, choking more, using.her hands. general ADLS etc.. She has also been seen at the [facility] for seizures. She was initially seen at [facility] Previous diagnostic workup for myasthenia gravis: Test name Date Result AChR antibodies blocking 2019 41 binding 2018 78.6 modulating 2019 52 Striated muscle MUSK antibodies LRP4 antibodies CMS gene testing Chest CT ([place]) 2018 normal Repetitive nerve stimulation Single fiber EMG Brain imaging (MRI) 2023 nl Thymus pathology 2018 Follicular hyperplasis MRI C and T spine 2022 1. Normal appearance of the cervical and thoracic spinal cord. Negative study. 2. Incidental 9 mm osseous lesion in the parasymphysis of the left hemimandible which is most likely a odontogenic inflammatory lesion but otherwise not characterized on this exam. RF 2016 neg TSH 2015 2021 1.780 1.62 B12 2015 528 Immunosupression history: Test name Date Result TPMT Testing (for Imuran) TB skin test Quantiferon Hepatitis B sceen 2022 s AB- pos s-AG- neg Hepatitis C screen Bone density Mycophenolate REMS consent Shringrix menningococal vaccine Yes but not sure which ones PATRICIA virus AB Eye exam PCP prophylaxis Medication name Dates Dose Effective? Complications soliris ultimoris steroids 10-20 (nax) ??Seizures??, increased weakness. mestion Tried 2 doses Migraine blurred vision cellcept 500 mg tabs dosing Not clear No benefit thymectomy 2018 CURRENT HISTORY: Since her last visit, she feels like her MG is better overall this month. She mentions since her last seizure in late October, she feels her body was re-booted and improved MG symptoms such as better arm and leg strength. Less chewing fatigue, less diplopia. More strength and energy. Will get tired.Notices that she can open jars and cans better lately. She thinks it might be related to taking Lorazepam for anxiety. She hasn't fallen this month and she noticed that she hadn't taken the Lorazepam. Mentions being tired when climbing up and down stairs. Legs will feel heavy. She has fallen down these stairs in the past. She has anxiety when using these stairs. I have reviewed recent labs and other tests pertinent to the patient's visit. Other than as noted above and in the chart, there is no change in the past medical, surgical , family, or social history since 2022 Current Outpatient Medications Medication Sig apixaban 5 MG tablet Take 1 tablet by mouth 2 times daily. Escitalopram 10 MG tablet Take 1 tablet by mouth at bedtime. Folic acid 1 MG tablet Take 1 tablet by mouth daily. Levonorgestrel (Mirena, 52 MG,) 20 MCG/DAY 1 Intra Uterine Device by Intrauterine route once. LORazepam 0.5 MG tablet Take 0.5-1 tablets by mouth as needed. Does not take every day-only rarely as needed Ravulizumab-cwvz (Ultomiris) 300 MG/30ML Solution 130 mL by Intravenous route every 56 days. Valtoco 10 MG Dose 10 MG/0.1ML Liquid 10 mg by Nasal route as needed. zonisamide 100 MG capsule Take 2 tablets by mouth in the am and 3 caps at bedtme lamoTRIgine 100 MG tablet Take 1 tablet by mouth at bedtime. Take with the 150mg tablet for a totaldose of 250mg at night. (Patient taking differently: Take 1 tablet by mouth at bedtime. Takes 150 mg in AM and 250mg in PM) REVIEW OF SYSTEMS: Weight Loss/gain Diarrhea/Constipation Skin changes Vision loss Nausea Muscle ache/pain Double vision + Walking problems Muscle twitches Hearing loss Falls Loss of muscle mass Shortness of breath Difficulty chewing/swallowing Depressed mood Cannot lie flat Choking Behavior changes Cannot exercise Bladder/bowel incontinence Memory/thinking problems Fainting Cannot empty bladder Sleep problems Voice changes Sensation changes Sexual function problems Headaches Heart palpitations Back pain positive if marked, remainder of 14 point ROS negative. PHYSICAL EXAM: BP 135/83 (BP Location: Left arm, BP Position: Sitting) Pulse 104 Temp 97.3 F (36.3 C) (Infrared) Ht 1.6 m (5' 3) Wt 81.6 kg (180 lb) BMI 31.89 kg/m Smoking Status Never GENERAL: She is in no acute distress. She is alert and oriented. HEENT: pupils are round, equal and react to light. SKIN: no rashes CRANIAL NERVES: Extra ocular muscles are full, face is strong and symmetric. Palate elevates well.Tongue is strong. MOTOR: Bulk and tone are normal. NF 4+ SA EE EF WE WF FF FE ThAb Sandra Left 4 5 5 Right 4 5 5 HF KE KF DF PF Inv Ev HAb HAd Left 4 5 5 Right 4 5 5 ASSESSMENT /PLAN: This is a 32 y.o. female with MG. She feels much more stable with her MG since discharge from hospital. While inpatient they checked the quanitferon and hepatitis screen ( Dr Mejias suggested this at her last visit). While she wants to continue on Solaris, she wants to switch to [facility] infusion [facility]. I will message [facility] in pharmacy. She no longer takes Mestinon as it didn't help her. She notes that her previous dose of Cellcept was 500 mg BID ---she is not currently taking this medication nor does she want to at this time. She is planning to do outpatient but is hesitant due to past negative experiences in PT. MG-ADL = 6 PLAN: Continue Solaris--she would like to switch to [facility] infusion center after her 12/18/22. she will continue to have regular blood work to monitor for side effects associated with her treatment regimen. She will return in followup to see DR Mejias I have spent 30 minutes in pre-visit chart review (including recent lab and imaging results), face to face time with the patient, and post-visit documentation. For all critical or time sensitive results related to any diagnostic tests generated during this appointment, please contact the on-call Neuromuscular attending Neurologist found in web exchange or pageable through the switchboard ([phone]) documented in this [facility]07-14-2023 History of Present illness Narrative* Angie Patterson MD - 11/13/2022 3:40 PM EDT Reason for Consult: Episodes concerning for Seizures HPI: Pt is a 32 year old F with a PMH significant for myasthenia gravis and generalized epilepsy referred for breakthrough seizures. The patient reports that the episodes began at 11 years old. The episodes are described as beginning with staring off/looking shocked and then progressing to a generalized tonic clonic seizure with loss of awareness and full body shaking. She has breakthrough seizures about every year and a half. She was recently admitted for breakthrough seizures. Started with a 'drop'/fall. After she felt herarms stiffen and eyes deviate. She was able to tell her son to get her rescue medication and her dad. Her home rescue medication was administered, which broke the seizure. EMS was called and she wentto the ED for evaluation. Just before dc from the ED, she had another seizure that started with herarms stiffening then progressing to a generalized tonic clonic seizure. [facility] There was no obvious trigger for the breakthrough seizure. During hospitalization, lamotrigine was increased to 150 mg in the morning and 250 mg in afternoon. Otherwise, the following AEDs were unchanged: zonisamide 200 mg qam and 300 mg qpm, and Oxcarbazepine 150 mg at bedtime. Since discharge from the hospital, she has not had any seizures or falls. She also has become stronger. She is able to reach better overhead and is able to be more independent due to having increasedstrength. Primary concern at the visit today is the increased falls she has had since about May; although, she has not fallen since discharge from the hospital. Before admission to the hospital, falls wereoccurring daily. The patient describes these falls as her legs suddenly going out. She will drop tothe floor. No head trauma with any of her previous falls. Immediately after falling, her she is unable to move her arms and legs and they feel heavy like bricks. Over the course of about 10 minutes, she begins to regain full function of her extremities. She denies loss of consciousness with theseepisodes. She considers these to be drops more than falls. She does not feel that the falls are from fatigue related to her MG. In May, she also had a fall down the stairs after her hip gave out. She had a concussion at this time. All imaging was negative. No other falls with head trauma since. She is out of her zonisamide and states her local pharmacy will not have any of the medication in stock until Wednesday or Wednesday. She will call around to other pharmacies to find some that is available earlier. Current Medications: - lamotrigine was increased to 150 mg in the morning and 250 mg in afternoon. - zonisamide 200 mg qam and 300 mg qpm - oxcarbapemine 150 mg at bedtime. 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 Past Family History family history includes Breast Cancer in her maternal grandmother; Coronary Artery Disease in her maternal grandfather; Multiple Sclerosis in her sister; No known problems in her brother, father, andmother. Past Social History She reports that she has never smoked. She has never used smokeless tobacco. She reports that she does not drink alcohol and does not use drugs. The patient currently lives independently in [place], [place]. Past Surgical History has a past surgical history that includes appendectomy; arthroscopy hip w/ labral repair (Right); thymectomy transcervical approach robotic; replacement central venous access device w/ port pump (Right); and insertion cvc tunneled w/ port pump (Right, 10/16/2020). Allergies She is allergic to iodides, levetiracetam, phenytoin, prochlorperazine, shellfish-derived products,soybean oil, and penicillins. Medications She has a current medication list which includes the following prescription(s): apixaban, escitalopram, folic acid, lamotrigine, lamotrigine, mirena (52 mg), lorazepam, oxcarbazepine, ultomiris, valtoco 10 mg dose, and zonisamide. Review of Systems A complete 12 point review of systems was negative except for: weakness, seizure Physical Exam BP 121/74 (BP Location: Right arm, BP Position: Sitting) Pulse 93 Temp 98.8 F (37.1 C) (Infrared) Ht 1.6 m (5' 3) Comment: verbal Wt 81.8 kg (180 lb 6.4 oz) BMI 31.96 kg/m Smoking StatusNever Body mass index is 31.96 kg/m . Gen: Awake and alert, well developed, well-nourished HEENT: Sclerae anicteric, MMM Chest: Normal work of breathing on room air Heart: Hemodynamically stable Ext: Edema: No Clubbing: No Neuro: HCF:Awake and alert, fully oriented. Able to give recent and remote medical history. Mood euthymic,insight and judgement are good, speech fluent, no aphasias CN: EOMI without nystagmus, PERRL, face symmetric, VFF to confrontation, sensation symmetric V1-3. Tongue protrudes midline. Motor: 4-/5 strength in bilateral arm abduction and hip flexion. Otherwise strength is 5/5 throughout. Normal muscle bulk and tone throughout. Sensory: Sensation is intact to LT throughout and symmetric. Cerebellar: No tremors noted, no dystaxia on FTN Gait/Station: Pt with normal gait and station Labs:Studies: Assessment: Pt is a 32 year old F with a PMH significant for myasthenia gravis and generalized epilepsy referred for breakthrough seizures. There is no obvious trigger for this breakthrough seizure. Since lamotrigine was increased, she has no further seizures. Oxcarbazepine can worsen seizures in patients with generalized epilepsy. Due to this concern, this medication should be discontinued. Her falls have stopped since increasing her medications and discharge from the hospital. If these falls resume, willschedule an EMU visit to determine if these are due to epilepsy. Plan: 1. Discontinue Oxcarbazipine 2. Ambulatory EEG 3. The patient was given instructions regarding safety in persons with seizures, specifically including no driving, no taking tub baths, no climbing heights or swimming due to risk of injury from seizures. 4. The patient was given instructions regarding medications including timing and potential side effects 5. We will plan to follow-up in 3-4 months Angie Patterson MD. PGY-1 I saw and independently interviewed and examined the patient today. I agree with the history, examination and medical decision making as noted by Dr. Patterson with the following additions: Patient with a history of PGE presents for evaluation of possible worsening seizures over the past 6 months vs. Development of a different type of spell. She has not had these events as a child but they have responded to an increase in zonisamide. She was started on oxcarbazepine sometime recently (they aren't sure when) and this could have worsened her underlying disorder so will ask her to stopthis. She had recent labs which show good compliance. If her events worsen would need an EMU admission to try and clarify the cause. Edgar Ayers MD Candy Packer, Department of Neurology, Epilepsy Section [facility] NoteThe M. Tuberculosis antigen levels cannot be correlated to stage or degree of infection, response to therapy or likelihood for progression to active disease. Results from [facility] Plus must be used in conjunction with individual epidemiological history, current medical status, and results of other diagnostic evaluation.[facility]07-03-2023 NoteThe M. Tuberculosis antigen levels cannot be correlated to stage or degree of infection, response to therapy or likelihood for progression to active disease. Results from QuantiFERON [facility] Gold Plus must be used in conjunction with individual epidemiological history, current medical status, and results of other diagnostic evaluation.[facility]07-03-2023 History of Present illness Narrative* Stephanie Rebolledo RN - 11/02/2022 2:14 PM EDT Final Discharge Planning and Transportation Final Discharge Planning Discharge Disposition: Home Services at Discharge: Occupational Therapy, Physical Therapy Community Agency Name(s) For Handoff: Plan to discharg to home with outpatient PT/OT and support from family. Plan Plan Comments: Follow up with neurology post discharge. Shirt Sorter Called: No Mode of Transfer: private vehicle Accompanied By: family member Stephanie ANGLIN RN Clinical Record Tester [phone] * Yudi Stephanie - 11/02/2022 12:12 PM EDT Acute Occupational Therapy Treatment Prior to Admission AM-PAC Score: PRIOR LEVEL AM-PAC Activity Raw Score: 20 PRIOR LEVEL AM-PAC Mobility Raw Score: 23 Current AM-PAC score(s): CURRENT AM-PAC Activity Raw Score: 21 Based on the above AM-PAC score(s), and OT clinical judgment, discharge destination recommendation is: Home with initial assistance for IADLs. Barriers to discharge home: Patient needs assistance with IADLs (see note below) Supporting Factors (would benefit from skilled therapy services): Patient status is anticipated to be appropriate to tolerate inpatient rehab therapy requirements at time of discharge from acute care, Impaired functional status, Decreased strength, Impaired balance, Decreased endurance, Impaired self-care abilities, Assistance needed with functional mobility, Fall risk, Recent decline in functional mobility, Recent decline in self-care abilities, Patient has appropriate assistance and setup at home for ultimate discharge to home once patient has progressed functionally following inpatient rehab Mobility equipment available at home: none used ADL equipment available at home: elevated toilet seat (In the process of purchasing a shower bench) Equipment recommendations for discharge: bathing equipment, dressing equipment, feeding equipment, tub bench Current therapy frequency recommendation(s) in acute: 5 times a week Precautions and Weightbearing Status: OT Existing Precautions/Restrictions: fall, seizure No critical lines at this time Patient Safety Communication Prior to Visit: Nursing Subjective: Pt agreeable to therapy and states that she feels much better than when she was initially evaluated. Pt's mom present throughout session. Pain: General Pain Documentation (Adult, OB, Peds) Presence of Pain: denies pain/discomfort Objective/Observation: Vitals/Vitals Responses to Treatment: No adverse response to treatment. O2 Device: room air Speech Speech: no gross deficits noted Hearing Hearing: no gross deficits noted Cognition Overall Cognitive Status: Within Functional Limits Arousal/Alertness: Appropriate responses to stimuli Orientation Level: Oriented X4 Following Commands: Follows all commands and directions without difficulty Safety Judgment: Good awareness of safety precautions Awareness of Errors: Good awareness of errors made Deficits: Fully aware of deficits Attention Span: Appears intact Memory: Appears intact Problem Solving: Able to problem solve independently ADL Assessment/Intervention: Grooming Assistance: Stand by Grooming Location: standing at sink Grooming Deficit: Generalized weakness, Increased time to complete, Wash/dry hands, Wash/dry face, Oral care, Brushing hair Grooming Skilled Rationale (Verbal/Tactile/Visual/Demonstration): Cues for increased safety, Technique of activity Grooming Intervention/Details: Pt completed grooming tasks of oral care, hair brushing, face washing, and hand washing standing at the sink with SBA to explain adaptive strategies and ensure balance maintenance. UE Dressing Assistance: Independent UE Dressing Location: edge of bed UE Dressing Deficit: Generalized weakness, Increased time to complete UE Dressing Skilled Rationale (Verbal/Tactile/Visual/Demonstration): Cues for increased safety, Technique of activity UE Dressing Intervention/Details: Pt completed UB dressing EOB independently. LE Dressing Assistance: Stand by LE Dressing Location: edge of bed, standing LE Dressing Deficit: Thread RLE into pants, Thread LLE into pants, Activity tolerance, Generalized weakness LE Dressing Skilled Rationale (Verbal/Tactile/Visual/Demonstration): Cues for increased safety LE Dressing Intervention/Details: Pt completed LB dressing of donning pants with SBA to ensure balance maintenance. Therapist educated pt on utilizing figure four technique and pt able to srinath pants with SBA to ensure balance maintenance in standing. Pt states that utilizing figure four technique is very helpful and much easier. Extremity Assessments: See OT Evaluation flowsheet for Extremity Measurement updates. Balance: Sitting Balance Static Sitting-Level of Assistance: Independent Dynamic Sitting-Level of Assistance: Independent Skilled Rationale: Verbal cues, Tactile cues Sitting Balance Skilled Intervention/Details: Pt tolerated sitting EOB for approximately 30 minuteswith no LOB Standing Balance Static Standing-Level of Assistance: Supervision Dynamic Standing-Level of Assistance: Supervision Standing-Balance Support: Gait belt (Non skid socks) Skilled Rationale: Verbal cues, Technique of activity, Cues for increased safety Standing Balance Skilled Intervention/Details: Pt tolerated standing for approximately 10 minutes with no LOB/SOB. Mobility Assessment/Intervention: Supine to Sit Mobility Dooly Level: Supine->Sit: independent Bed Features/Set-up: Supine->Sit: Head of bed elevated, Use of bed rail Transfer Assessment/Intervention: Sit to Stand Transfer Dooly Level: Sit->Stand: stand-by assist Assistive Device: Sit->Stand: gait belt (Non skid socks) Skilled Rationale: Verbal cues, Technique of activity Skilled Intervention/Details: Sit->Stand: Pt completed x 2 sit to stands from EOB with SBA to ensure balance maintenance. Stand to Sit Transfer Dooly Level: Stand->Sit: stand-by assist Assistive Device: Stand->Sit: gait belt (Non skid socks) Skilled Rationale: Verbal cues, Cues for increased safety Skilled Intervention/Details: Stand->Sit: Pt completed x 2 stand to sits EOB with SBA to ensure controlled descent. Functional Mobility: Functional Mobility Dooly Level: Functional Mobility/Gait: stand-by assist Assistive Device: Functional Mobility/Gait: gait belt (Non skid socks) Functional Mobility Distance: Distance needed for common household mobility Functional Mobility Deficits: Balance, Generalized weakness Functional Mobility Skilled Rationale: Cues for increased safety Skilled Intervention/Details - Functional Mobility/Gait: Pt ambulated with no LOB/SOB with SBA to ensure balance maintenance. Outcome Score(s): CURRENT [facility] Daily Activity Inpatient Short Form Putting on/Taking Off Lower Body Clothin - A Little Assistance Bathin - A Little Assistance Toiletin - A Little Assistance Putting on/Taking Off Upper Body Clothin - No Assistance Groomin - No Assistance Eatin - No Assistance CURRENT [facility] Activity Raw Score: 21 CURRENT [facility] Activity Functional Limitation/Modifier: 32.79% Currently Impaired in Daily Activity- CJ Interventions: Intervention 1 Intervention Name: Homebound Education Details: Therapist educated pt on homebound education, including education pertaining to utilizing figure four position when completing lower body dressing, using a tub transfer bench to prevent fatigue, using a dressing stick to aid in lower body dressing, utilizing built up tools for eating and grooming tasks, energy conservation strategies throughout the day, and getting assistance with IADLs.Pt encouraged to practice fine motor tasks at home to maintain fine motor coordination abilities. Pt verbalized understanding and did not have any questions. Assessment & Plan: Pt is demonstrating good progress in occupational therapy goals this date, primarily in ADL participation, functional balance, and functional mobility. Patient Instruction/Education this session: Pt educated on the importance of EOB/OOB activities in improving independence in self-care/functional activity participation and on the role of OT/OT plan of care. Pt verbalized understanding. Plan for next session: Discontinue acute OT services this date as pt appropriate for home. Acute OT Goals Plan of Care by Madai Dumas OT at 11/02/2022 12:00 PM Version 1 of 1 Problem: OT - Dressing Goal: Upper Body Dressing Description: Pt will complete UE dressing task Edge of bed with independence for improved ability to complete self-care activities. Outcome: Adequate for Discharge Goal: Lower Body Dressing Description: Pt will complete LE dressing tasks with independence for improved ability to complete self-care activities. Outcome: Adequate for Discharge Problem: OT - Endurance Goal: Endurance Functional Mobilty Around Home Description: Pt will complete distance needed for common household mobility Supervision A Outcome: Adequate for Discharge Problem: OT - Strength/ROM Goal: Strength/ROM ADL Participation Description: Pt will demonstrate independence with UE exercise program to prevent deconditioning while in the hospital and to maximize UE ROM/coordination/strength for ADL participation. Outcome: Adequate for Discharge Problem: OT - Other Goal: Energy Conservation Task Recall Description: Pt will independently recall 4 energy conservation principles to increase functional activity tolerance during ADLs, IADLs, and mobility tasks. Outcome: Adequate for Discharge OT treatment consisted of the following to work and progress towards the above goal(s): OT Evaluation and Treatment Time Self Care/Home Management (ADLs) Time Entry: 29 Therapeutic Activity Time Entry: 15 Treating Therapist: MONIQUE Olvera Additional Details: Co-evaluation/co-treatment performed?: No simultaneous skilled care performed I used gloves and facemask in today's patient interaction. Patient location at end of session: bed with head of bed elevated and RN aware Alarms on at end of session: none Needs in reach. Time In: 1128 Time Out: 1212 Total Visit Time: 44 minutes Total Treatment Time (skilled, billable minutes): 44 minutes Upon discontinuation of Acute Care Occupational Therapy Services or patient discharge from the hospital this note represents the current Occupational Therapy Discharge Summary. Associated attestation - Madai Dumas OT - 11/02/2022 1:23 PM EDT I, Madai Dumas OT, provided direct guidance in the room during this patient care session. I attest that all documentation reflects accurate skilled clinical decisions and judgements. * Efrain Quesada, PT - 11/02/2022 9:52 AM EDT Acute Physical Therapy Treatment Prior to Admission [facility] score(s): PRIOR LEVEL AM-PAC Mobility Raw Score: 23 PRIOR LEVEL AM-PAC Activity Raw Score: 20 Current AM-PAC score(s): CURRENT AM-PAC Mobility Raw Score: 20 Based on the above AM-PAC score(s) and PT clinical judgment, patient is a good candidate for discharge to Home (with assist from family prn for IADL's) Barriers to discharge home: Patient needs assistance with IADLs (see note below) Supporting Factors (would benefit from skilled therapy services): Fall risk, Impaired balance Mobility equipment available at home: none used ADL equipment available at home: elevated toilet seat (In the process of purchasing a shower bench) Equipment needed for discharge: none Current therapy frequency recommendation in acute: Therapy Frequency: 1 time a week Precautions and Weightbearing Status: Existing Precautions/Restrictions: fall, seizure No critical lines at this time Patient Safety Communication Prior to Visit: Nursing Subjective: Pt agreeable to therapy. Reports feeling stronger. Mother present. Pain: General Pain Documentation (Adult, OB, Peds) Presence of Pain: denies pain/discomfort Objective/Observation: Vitals/Vitals Responses to Treatment: VSS. Denies fatigue this session. O2 Device: room air Cognition Overall Cognitive Status: Within Functional Limits Arousal/Alertness: Appropriate responses to stimuli Orientation Level: Oriented X4 Following Commands: Follows all commands and directions without difficulty Safety Judgment: Good awareness of safety precautions Awareness of Errors: Good awareness of errors made Deficits: Fully aware of deficits Extremity Assessments: See PT Evaluation flowsheet for Extremity Measurement updates. Balance: Sitting Balance Static Sitting-Level of Assistance: Independent Dynamic Sitting-Level of Assistance: Independent Standing Balance Static Standing-Level of Assistance: Supervision Dynamic Standing-Level of Assistance: Supervision Standing-Balance Support: Gait belt Skilled Rationale: Positioning, Tactile cues Standing Balance Skilled Intervention/Details: no LOB or buckling noted in standing. Mobility Assessment/Intervention: Supine to Sit Mobility Dooly Level: Supine->Sit: independent Bed Features/Set-up: Supine->Sit: Head of bed elevated Skilled Rationale: Verbal cues Transfer Assessment/Intervention: Sit to Stand Transfer Dooly Level: Sit->Stand: supervision Assistive Device: Sit->Stand: gait belt Skilled Rationale: Positioning, Verbal cues Skilled Intervention/Details: Sit->Stand: x4 stands. Cues to use UE's for push-off. Gait/Functional Mobility Assessment/Intervention: Gait Assessment Dooly Level: Gait: supervision Assistive Device: Gait: gait belt Ambulation Distance (Feet): 250 Gait Deviations Identified: decreased gait speed Gait Skilled Rationale: verbal Skilled Intervention/Details - Gait: No LOB or LE buckling noted. No cueing needed to improve gait quality. Stairs Assessment/Intervention: Stairs Assessment Dooly Level: Stair Negotiation: stand-by assist Assistive Device: Stair Negotiation: gait belt, right rail (ascending) Number of stairs: 7 Stairs Skilled Rationale: verbal, nonreciprocal pattern Skilled Intervention/Details - Stairs: Cueing on which foot to lead with due to LLE weakness. Pt reports high anxiety with stairs due to hx of falls. Worked on only one step up and down due to anxiety. Outcome Score(s): CURRENT [facility] Basic Mobility Inpatient Short Form Turning over in bed: 4 - No Assistance Sitting/standing from chair: 3 - A Little Assistance Moving from lying on back to sittin - No Assistance Moving to and from bed to chair: 3 - A Little Assistance Walk in hospital room: 3 - A Little Assistance Climbing 3-5 steps with a railin - A Little Assistance CURRENT [facility] Mobility Raw Score: 20 CURRENT [facility] Mobility Functional Limitation/Modifier: 35.83% Currently Impaired in Basic Mobility- CJ Interventions: Extensive education to patient and mother on use of the RPE scale to avoid over exertion. Additional education provided on adapting tasks at home to avoid over fatigue, energy conservation, when to get assist from family for IADL's. Assessment & Plan: Pt progressed sit to stands, gait, and stairs to supervision/SBA. Pt and mother also demonstrate great understanding on energy conservation strategies and tips t oavoid over fatigue. Patient Instruction/Education this session: RPE scale, see interventions above Plan for next session: continue education on RPE scale and energy conservation Acute PT Goals Plan of Care by Efrain Quesada PT at 11/02/2022 9:52 AM Version 1 of 1 Problem: PT - Balance/Coordination/Neuro Re-Education Goal: Standing Dynamic/Static Balance Description: Pt will perform standing balance tasks for 10 minutes with standby assistance with outan assistive device in order to improve functional mobility and safety with standing tasks. Outcome: Progressing Toward Goal Problem: PT - Mobility Goal: Ambulation Description: Pt will ambulate 150 feet with out an assistive device with supervision to improve ability to navigate home environment. Outcome: Progressing Toward Goal Goal: Stairs Description: Pt will ascend/descend 5 stairs with 1 railings with supervision with out an assistivedevice to improve ability to perform functional mobility necessary in recommended discharge environment. Outcome: Progressing Toward Goal Problem: PT - Transfers Goal: Supine <-> Sit Description: Pt will perform bed mobility with flat bed & no rail with [facility] to improve functional mobility and safety. Outcome: Met This Shift Goal: Sit <-> Stand Description: Pt will perform sit to/from stand transfers with supervision with out an assistive device in order to improve functional mobility and safety. Outcome: Progressing Toward Goal PT treatment consisted of the following to progress towards the above goal(s): PT Evaluation and Treatment Time Therapeutic Activity Time Entry: 18 Gait Training Time Entry: 13 Treating Therapist: Efrain Quesada PT Additional Details: Co-evaluation/co-treatment performed?: No simultaneous skilled care performed - I used facemask, protective eye shield, and gloves in today's patient interaction. Patient location at end of session: chair Alarms on at end of session: RN aware Needs in reach. Time In: 951 Time Out: 102 Total Visit Time: 31 minutes Total Treatment Time (skilled, billable minutes): 31 minutes Upon discontinuation of Acute Care Physical Therapy Services or patient discharge from the hospitalthis note represents the current Physical Therapy Discharge Summary. * Hill Limon MD - 11/01/2022 2:31 PM EDT Internal Medicine Daily Progress Note Patient: Doug Flanagan, 1990, [id number] Physician: Hill Limon MD, Gen Med 7 service Subjective/Interval History: No acute events overnight. She states that her headache pain is still present this morning but muchimproved from yesterday. She understands the plan for inpatient rehabilitation, would like to be reassessed by PT/OT given that she feels better from her initial assessment. Assessment/Plan: Doug Flanagan is a 32 y.o. female with history of myasthenia gravis (dx in 2018), epilepsy, and anxiety who presents for breakthrough seizures. Breakthrough seizures Patient with history of epilepsy now with breakthrough seizures x3 on 10/29 though not documented onEEG. Last seizure occurred August 2022. Differential for breakthrough seizures include infection, metabolic derangement, intoxication, inadequate AED titration, ingestion vs new dx PNES. - CXR concerning for right-sided atelectasis versus developing infectious process. Low suspicion for PNA given no clinical signs. Likely atelectasis in the setting of reduced activity at home - Continue home AEDs - Lamictal 150 mg AM, 250 mg PM - Trileptal 150 mg daily - Zonegran 200 mg AM, 300 mg PM - Consulted Neurology, appreciate recs - Increase Lamotrigine to 150 mg QAM and 250 mg QPM - Continue Zonisamide 200 mg QAM and 300 mg QPM and Oxcarbazepine 150 mg QHS - start Folic Acid - Consider weaning Oxcarbazepine outpatient pending rEEG results - Outpatient rEEG - f/up in [facility]psy [facility] - Seizure precautions - Respiratory parameters q12h (NIF/VC) Hx of Myasthenia Gravis Diagnosed 2017. Last seen by [facility] neuromuscular 10/06/2022. AChR ab+. She is status post thymectomy and Soliris.Treated with Ultomiris and port placed in 2021 for PLEX. Has missed 4 months of ultomiris due to insurance billing issues with local neurologist. Has been resumed 08/2022. Has had progressively worsening weakness. At last appointment advised to start Mestinon 30 mg TID. Tried this for 2 weeks which worsened headaches and did not improve weakness. 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 - Consulted PT/OT - OT recommending IPR at this time. Looking into placement at [facility]. - Consulted neurology - NIF/ VC once - f/up in [facility] Neuromuscular clinic Chronic conditions Anxiety - Continue home Lexapro 10 mg daily Lab/Electrolyte Abnormalities Hypokalemia- 3.3 (10/30)- repleted with 40mEq K-Dur Vitamin D level ordered Checklist: DVT Prophylaxis: on apixaban Dispo: pending evaluation and treatment. OT recommending Code Status: Full Code Diet: DIET REGULAR Discussed with team and attending, Dr. Adolfo Flores MD, on rounds. Signed, Hill Limon MD Anesthesiology, PGY-1 Pager ID: [phone] Physical Exam: Temp: [97.9 F (36.6 C)-98.6 F (37 C)] 98 F (36.7 C) Pulse (Heart Rate): [68-87] 73 Resp Rate: [14-16] 15 BP: (102-120)/(58-69) 115/66 O2 Sat (%): [95 %-98 %] 98 % O2 Device: room air (11/01/22 0620) Lines/Drains/Airways/Wounds: Patient Lines/Drains/Airways Status Active Lines, Drains, Airways, & Wound Overview Name Placement date Placement time Site Days Implanted Port - Single Lumen Port 10/16/20 infraclavicular fossa, right 10/16/20 -- -- 746 Gen: Alert, Awake, No Acute Distress Eyes: PERRLA, EOMI, no icterus ENT: MMM, trachea midline Resp: Clear to auscultation bilaterally, normal respiratory effort Cardio: Regular rate and rhythm, normal S1, S2, no M/R/G. No SRINIVASAN. GI: Soft, Non-tender, Non-distended, Normoactive Bowel Sounds MSK: No joint effusions or erythema: mild deconditioning Skin: No jaundice or rash Neuro: chicken sexer 3-7, 9-11 intact and equal. Strength grossly equal in muscle groups of the bilateral UEsand LEs. Psych: Ox3, appropriate affect and cognition, mildly anxious Body mass index is 31.48 kg/m . Data Review: CBC WBC/Hgb/Hct/Plts: 7.46/12.4/38.0/280 (11/01 100) Chem 7(PMC) Bun/Creat/Cl/CO2/Glucose: 14/0.79/109/23/95 (11/01 100) Na/K+/Phos/Mg/Ca: 141/4.0/--/1.9/-- (11/01 100) Coags Ptt/Pt/Inr: 35.6/13.8/1.1 (11/01 100) Imaging: XR CHEST PORTABLE Final Result IMPRESSION: Right lung volume is diminished with patchy right midlung opacities. Atelectasis or developing infection are considerations in the appropriate clinical setting. Medications: SCHEDULED: apixaban (ELIQUIS) tablet 5 mg, 5 mg, BID cholecalciferol (VITAMIN D3) tablet 2,000 Units, 2,000 Units, Daily Escitalopram (LEXAPRO) tablet 10 mg, 10 mg, QHS Folic acid (FOLVITE) tablet 1 mg, 1 mg, Daily lamoTRIgine (laMICtal) tablet 150 mg, 150 mg, Daily lamoTRIgine (laMICtal) tablet 250 mg, 250 mg, QHS OXcarbazepine (TRILEPTAL) tablet 150 mg, 150 mg, QHS zonisamide (ZONEGRAN) capsule 200 mg, 200 mg, Daily And zonisamide (ZONEGRAN) capsule 300 mg, 300 mg, QHS PRNs: Acetaminophen, 650 mg, Q6H PRN LORazepam, 0.5 mg, TID PRN Melatonin, 6 mg, QHS PRN Ondansetron 4mg/2ml, 4 mg, Q6H PRN Or Ondansetron, 4 mg, Q6H PRN Polyethylene glycol, 17 g, Daily PRN Sodium chloride 0.9%, 250 mL, PRN ALLERGIES: She is allergic to iodides, levetiracetam, phenytoin, prochlorperazine, shellfish-derived products, soybean oil, and penicillins. Home MEDS: Prior to Admission Medications Prescriptions Last Dose Informant Patient Reported? Taking? Escitalopram 10 MG tablet Yes No Sig: Take 1 tablet by mouth at bedtime. LORazepam 0.5 MG tablet Yes No Sig: Take 0.5-1 tablets by mouth 3 times daily as needed. LamoTRIgine 100 MG Tab SR 24 HR Yes No Sig: Take 1 tablet by mouth daily. LamoTRIgine 200 MG Tab SR 24 HR Yes No Sig: Take 1 tablet by mouth Every night. Levonorgestrel (Mirena, 52 MG,) 20 MCG/DAY Yes No Si Intra Uterine Device by Intrauterine route once. OXcarbazepine 150 MG tablet Yes No Sig: Take 1 tablet by mouth at bedtime. Ravulizumab-cwvz (Ultomiris) 300 MG/30ML Solution No No Si mL by Intravenous route every 56 days. Valtoco 10 MG Dose 10 MG/0.1ML Liquid Yes No Si mg by Nasal route as needed. apixaban 5 MG tablet Yes No Sig: Take 1 tablet by mouth 2 times daily. rOPINIRole 1 MG tablet Yes No Sig: Take 1.5 tablets by mouth Every night. zonisamide 100 MG capsule Yes No Sig: Take by mouth 2 times daily. 2 caps in the am , 3 caps at bedtime Facility-Administered Medications: None Associated attestation - Adolfo Flores MD - 11/01/2022 4:36 PM EDT Attending Attestation: I have personally seen and examined Doug Flanaagn and I agree with the physical exam as stated below. I have personally reviewed all available clinical data related to today's encounter including, butnot limited to, radiology images and reports, laboratory data, and procedure reports. I have been fully involved in formulation of the assessment and plan and agree with the resident or BETTINA findings and plan of care as documented with any exceptions or additions noted below. CK wnl. Myositis panel pending. Rocha to eval tomorrow. Pt requests PT/OT re-eval tomorrow. Otherwise med stable Signed, Adolfo Flores MD * Joann Nagel RCP - 11/01/2022 11:52 AM EDT 11/01/22 1150 Resp Parameters Non-Vent $$ Resp Parameters Non-Vent yes RT Intervention Parameters Non Vent Patient Interface mouth piece Patient Position semi fowlers Vital Capacity (ml) (VC ON BACK ORDER) NIF -40 Patient Effort good * Lesly Smith RCP - 10/31/2022 4:50 PM EDT 10/31/22 1649 Resp Parameters Non-Vent $$ Resp Parameters Non-Vent yes RT Intervention Parameters Non Vent Patient Interface mouth piece Patient Position semi fowlers NIF -40 Resp Rate 16 Patient Effort good * Lesly Smith RCP - 10/31/2022 11:42 AM EDT 10/31/22 1141 Resp Parameters Non-Vent $$ Resp Parameters Non-Vent yes RT Intervention Parameters Non Vent Patient Interface mouth piece Vital Capacity (ml) (unable to complete, equipment on back order) NIF -40 Resp Rate 14 Patient Effort good * Kb Mitchell MD - 10/31/2022 11:35 AM EDT Internal Medicine Daily Progress Note Patient: Doug Flanagan, 1990, [id number] Physician: Kb Mitchell MD, Gen Med 7 service Subjective/Interval History: No acute events overnight. She states that her headache pain is still present this morning but muchimproved from yesterday. She understands the plan for inpatient rehabilitation. Assessment/Plan: Doug Flanagan is a 32 y.o. female with history of myasthenia gravis (dx in 2018), epilepsy, and anxiety who presents for breakthrough seizures. Breakthrough seizures Patient with history of epilepsy now with breakthrough seizures x3 on 10/29 though not documented onEEG. Last seizure occurred August 2022. Differential for breakthrough seizures include infection, metabolic derangement, intoxication, inadequate AED titration, ingestion vs new dx PNES. - CXR concerning for right-sided atelectasis versus developing infectious process. Low suspicion for PNA given no clinical signs. Likely atelectasis in the setting of reduced activity at home - Continue home AEDs - Lamictal 100 mg AM, 250 mg PM - Trileptal 150 mg daily - Zonegran 200 mg AM, 300 mg PM - Consulted Neurology, appreciate recs - Increase Lamotrigine to 150 mg QAM and 250 mg QPM - Continue Zonisamide 200 mg QAM and 300 mg QPM and Oxcarbazepine 150 mg QHS - start Folic Acid - Consider weaning Oxcarbazepine outpatient pending rEEG results - Outpatient rEEG - f/up in [facility] - Seizure precautions - Respiratory parameters q4h (NIF/VC) Hx of Myasthenia Gravis Diagnosed 2017. Last seen by [facility] 10/06/2022. AChR ab+. She is status post thymectomy and Soliris.Treated with Ultomiris and port placed in 2021 for PLEX. Has missed 4 months of ultomiris due to insurance billing issues with local neurologist. Has been resumed 08/2022. Has had progressively worsening weakness. At last appointment advised to start Mestinon 30 mg TID. Tried this for 2 weeks which worsened headaches and did not improve weakness. 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 - Consulted PT/OT - OT recommending IPR at this time. Looking into placement at [facility]. - Consulted neurology - NIF/ VC once - f/up in [facility] Chronic conditions Anxiety - Continue home Lexapro 10 mg daily Lab/Electrolyte Abnormalities Hypokalemia- 3.3 (10/30)- repleted with 40mEq K-Dur Vitamin D level ordered Checklist: DVT Prophylaxis: on apixaban Dispo: pending evaluation and treatment. OT recommending Code Status: Full Code Diet: DIET REGULAR Discussed with team and attending, Dr. Adolfo Flores MD, on rounds. Signed, Kb Mitchell MD Anesthesiology, PGY-1 Pager ID: [phone] Physical Exam: Temp: [97.3 F (36.3 C)-98.4 F (36.9 C)] 98.2 F (36.8 C) Pulse (Heart Rate): [63-89] 87 Resp Rate: [14-16] 16 BP: (95-128)/(51-85) 105/51 O2 Sat (%): [96 %-99 %] 97 % O2 Device: room air (10/31/22 0548) Lines/Drains/Airways/Wounds: Patient Lines/Drains/Airways Status Active Lines, Drains, Airways, & Wound Overview Name Placement date Placement time Site Days Implanted Port - Single Lumen Port 10/16/20 infraclavicular fossa, right 10/16/20 -- -- 745 Gen: Alert, Awake, No Acute Distress Eyes: PERRLA, EOMI, no icterus ENT: MMM, trachea midline Resp: Clear to auscultation bilaterally, normal respiratory effort Cardio: Regular rate and rhythm, normal S1, S2, no M/R/G. No SRINIVASAN. GI: Soft, Non-tender, Non-distended, Normoactive Bowel Sounds MSK: No joint effusions or erythema: mild deconditioning Skin: No jaundice or rash Neuro: chicken sexer 3-7, 9-11 intact and equal. Strength grossly equal in muscle groups of the bilateral UEsand LEs. Psych: Ox3, appropriate affect and cognition, mildly anxious Body mass index is 31.48 kg/m . Data Review: CBC WBC/Hgb/Hct/Plts: 7.87/12.0/36.8/260 (11/01 3) Chem 7([facility]) Bun/Creat/Cl/CO2/Glucose: 11/0.64/108/20/84 (11/01 3) Na/K+/Phos/Mg/Ca: 139/4.0/--/1.9/-- (11/01 3) Coags Ptt/Pt/Inr: 36.3/15.2/1.2 (11/01 3) Imaging: XR CHEST PORTABLE Final Result IMPRESSION: Right lung volume is diminished with patchy right midlung opacities. Atelectasis or developing infection are considerations in the appropriate clinical setting. Medications: SCHEDULED: apixaban (ELIQUIS) tablet 5 mg, 5 mg, BID cholecalciferol (VITAMIN D3) tablet 2,000 Units, 2,000 Units, Daily Escitalopram (LEXAPRO) tablet 10 mg, 10 mg, QHS Folic acid (FOLVITE) tablet 1 mg, 1 mg, Daily lamoTRIgine (laMICtal) tablet 150 mg, 150 mg, Daily lamoTRIgine (laMICtal) tablet 250 mg, 250 mg, QHS OXcarbazepine (TRILEPTAL) tablet 150 mg, 150 mg, QHS zonisamide (ZONEGRAN) capsule 200 mg, 200 mg, Daily And zonisamide (ZONEGRAN) capsule 300 mg, 300 mg, QHS PRNs: Acetaminophen, 650 mg, Q6H PRN LORazepam, 0.5 mg, TID PRN Melatonin, 6 mg, QHS PRN Ondansetron 4mg/2ml, 4 mg, Q6H PRN Or Ondansetron, 4 mg, Q6H PRN Polyethylene glycol, 17 g, Daily PRN Sodium chloride 0.9%, 250 mL, PRN ALLERGIES: She is allergic to iodides, levetiracetam, phenytoin, prochlorperazine, shellfish-derived products, soybean oil, and penicillins. Home MEDS: Prior to Admission Medications Prescriptions Last Dose Informant Patient Reported? Taking? Escitalopram 10 MG tablet Yes No Sig: Take 1 tablet by mouth at bedtime. LORazepam 0.5 MG tablet Yes No Sig: Take 0.5-1 tablets by mouth 3 times daily as needed. LamoTRIgine 100 MG Tab SR 24 HR Yes No Sig: Take 1 tablet by mouth daily. LamoTRIgine 200 MG Tab SR 24 HR Yes No Sig: Take 1 tablet by mouth Every night. Levonorgestrel (Mirena, 52 MG,) 20 MCG/DAY Yes No Si Intra Uterine Device by Intrauterine route once. OXcarbazepine 150 MG tablet Yes No Sig: Take 1 tablet by mouth at bedtime. Ravulizumab-cwvz (Ultomiris) 300 MG/30ML Solution No No Si mL by Intravenous route every 56 days. Valtoco 10 MG Dose 10 MG/0.1ML Liquid Yes No Si mg by Nasal route as needed. apixaban 5 MG tablet Yes No Sig: Take 1 tablet by mouth 2 times daily. rOPINIRole 1 MG tablet Yes No Sig: Take 1.5 tablets by mouth Every night. zonisamide 100 MG capsule Yes No Sig: Take by mouth 2 times daily. 2 caps in the am , 3 caps at bedtime Facility-Administered Medications: None Associated attestation - Adolfo Flores MD - 10/31/2022 3:32 PM EDT Attending Attestation: I have personally seen and examined Doug Flanagan and I agree with the physical exam as stated below. I have personally reviewed all available clinical data related to today's encounter including, butnot limited to, radiology images and reports, laboratory data, and procedure reports. I have been fully involved in formulation of the assessment and plan and agree with the resident or BETTINA findings and plan of care as documented with any exceptions or additions noted below. Rocha referral sent, awaiting myositis panel. Vit D level and supplementation ordered per pt's mother's request. Signed, Adolfo Flores MD * Stephanie Rebolledo RN - 10/31/2022 11:16 AM EDT Discharge Planning Patient Assessment Admission Assessment Patient Assessment Completed: Focused Anticipated discharge disposition: Home Reason for Admission: concerns break through seizures and falls. Hx of MG Is the patient able to participate in the assessment?: No Explanation of why patient is unable to participate: slepy, diff to arousal Information source: Other (Genny Flanagan) Information Source Name/Contact: Genny Flanagan Demographics Verified and Updated: Yes Has the patient been admitted to any hospital in the last 30 days?: No Advanced Care Planning Has the patient completed Advance Directives?: Not Completed Legal Next of Kin Adult Child(roxy), List All Adult Children: (Minor child) Parent(s) - List All Living Parents: Yes Name and Contact information: Genny Flanagan Reviewed and Updated in Demographics? : Yes Outpatient Providers Does patient have a primary care physician? : Yes When was the patient's last PCP visit?: > 30 days Does the patient follow any specialists?: Yes Reviewed and updated Care Team?: Yes Patient Care Team: Donna Pedromo MD as PCP - General (Internal Medicine) Environment/Caregivers Is the patient from a facility or fci?: No Patient lives with: Alone Living Environment: House How many steps does the patient have to navigate to enter or inside the home? : 3 Does the patient have a first floor set-up with bed and bathroom?: Yes Patient Caregiving Responsibilities: Self Patient-identified caregiver/support network: Family Services Does the patient use a home health or hospice agency?: No Current with dialysis?: No Does the patient use any community programs or services?: No Does patient use DME? : walker Would you like to add additional DME providers?: No Does the patient use oxygen?: No Does patient use medical supplies? : none Anticipated Changes Related to Illness/Injury? : No Initial ADLs Prior to Arrival What is the patient's baseline physical functioning prior to this acute illness?: assist with ADLs What is the patient's baseline cognitive functioning prior to this acute illness?: assist with decision making, intermittent supervision Is the patient's baseline functioning changed by this acute illness? : Yes Changes observed : Physical, Cognitive Concerns with patient being able to care for themselves at home? : Yes Are there therapy or specialists consults?: Yes Select consult type: PT, OT Does the patient's home require any home modifications for discharge? : Unknown at this time CM to recommend therapy or other consults? : No Medication Management Does the patient have prescription insurance coverage? : Yes Is the patient on Anticoagulation? : No [id number] [place] [address] 1956 [facility] [address] [facility] [id number] [employer] Does the patient or public service representative express financial concerns? : No Employed?: Disabled Coping/Stress Concerns about patient s coping and stress?: No Concerns about patient s caregiver s coping and stress?: Unable to Assess Values and Beliefs Cultural or hoahaoism practices that may impact discharge planning and/or medical care?: No Initial Discharge Planning Anticipated discharge disposition: Home Transportation Available for Discharge: None Anticipated DME: unknown at this time Anticipated Services at Discharge: DME Patient Assessment Completed: Focused Risk of Readmission: 2.4 Category Reference: High:16-100 Mod-High:10-16 Mod-Low: 5-10 Low: 0-5 Expected Discharge Date: 11/03/2022 Discharge Planning Summary The LNOK mother at the bedside. Discussed discharge planning with her. She verified patient lived alone with her Otitis child. The Parent retired, assist with their grandson. Patient also has hx of MG crisis. PT/OT rec's IPR, may improve. Will determine next of care closer to home. The mother preferred to see some medical improvement prior to making disposition plan. Anticipating plan of discharge into IPR vs outpatient setting. Will determine next level of care closer to discharge. Case Management Plan CM will follow up with the discharge planning and coordination. Stephanie ANGLIN, RN Clinical Record Tester [phone] * Lesly Smith RCP - 10/31/2022 9:02 AM EDT 10/31/22 0901 Resp Parameters Non-Vent $$ Resp Parameters Non-Vent yes RT Intervention Parameters Non Vent Patient Interface mouth piece Patient Position semi fowlers Vital Capacity (ml) (uanble to complete, equipment on back order) NIF -40 Resp Rate 16 * Ac Minaya RCP - 10/30/2022 1:47 PM EDT Equipment to obtain vital capacity is on back order. Will obtain when equipment is in * Ac Minaya RCP - 10/30/2022 1:45 PM EDT Pt rep Parameters. NIF = -40 * Kb Mitchell MD - 10/30/2022 12:57 PM EDT Internal Medicine Daily Progress Note Patient: Doug Flanagan, 1990, [id number] Physician: Kb Mitchell MD, Gen Med 7 service Subjective/Interval History: No acute events overnight. Endorses left sided pleuritic but reproducible pain, which she says recurs every time she is hospitalized. She worked with PT this morning. Her mother is at the bedside. Assessment/Plan: Doug Flanagan is a 32 y.o. female with history of myasthenia gravis (dx in 2018), epilepsy, and anxiety who presents for breakthrough seizures. Breakthrough seizures Patient with history of epilepsy now with breakthrough seizures x3 on 10/29 though not documented onEEG. Last seizure occurred August 2022. Differential for breakthrough seizures include infection, metabolic derangement, intoxication, inadequate AED titration, ingestion vs new dx PNES. - Infectious workup: - UA to be sent - CXR concerning for right-sided atelectasis versus developing infectious process. Low suspicion for PNA given no clinical signs. Likely atelectasis in the setting of reduced activity at home - UDS to be sent - Continue home AEDs - Lamictal 100 mg AM, 250 mg PM - Trileptal 150 mg daily - Zonegran 200 mg AM, 300 mg PM - Consulted Neurology, appreciate recs - Increase Lamotrigine to 150 mg QAM and 250 mg QPM - Continue Zonisamide 200 mg QAM and 300 mg QPM and Oxcarbazepine 150 mg QHS - start Folic Acid - Consider weaning Oxcarbazepine outpatient pending rEEG results - Outpatient rEEG - f/up in [facility] - Seizure precautions - Respiratory parameters q4h (NIF/VC) Hx of Myasthenia Gravis Diagnosed 2017. Last seen by [facility] 10/06/2022. AChR ab+. She is status post thymectomy and Soliris.Treated with Ultomiris and port placed in 2021 for PLEX. Has missed 4 months of ultomiris due to insurance billing issues with local neurologist. Has been resumed 08/2022. Has had progressively worsening weakness. At last appointment advised to start Mestinon 30 mg TID. Tried this for 2 weeks which worsened headaches and did not improve weakness. 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 - Consulted PT/OT - OT recommending IPR at this time - Consulted neurology - NIF/ VC once - f/up in [facility] Chronic conditions Anxiety - Continue home Lexapro 10 mg daily Lab/Electrolyte Abnormalities Hypokalemia- 3.3 (10/30)- repleted with 40mEq K-Dur Checklist: DVT Prophylaxis: on apixaban Dispo: pending evaluation and treatment. OT recommending Code Status: Full Code Diet: DIET REGULAR Discussed with team and attending, Dr. Adolfo Flores MD, on rounds. Signed, Kb Mitchell MD Anesthesiology, PGY-1 Pager ID: [phone] Physical Exam: Temp: [97.8 F (36.6 C)-98.1 F (36.7 C)] 98.1 F (36.7 C) Pulse (Heart Rate): [64-80] 80 Resp Rate: [16] 16 BP: (105-113)/(56-70) 107/70 O2 Sat (%): [97 %-100 %] 97 % Weight: [80.6 kg (177 lb 11.1 oz)] 80.6 kg (177 lb 11.1 oz) O2 Device: room air (10/30/22 1133) Lines/Drains/Airways/Wounds: Patient Lines/Drains/Airways Status Active Lines, Drains, Airways, & Wound Overview Name Placement date Placement time Site Days Implanted Port - Single Lumen Port 10/16/20 infraclavicular fossa, right 10/16/20 -- -- 744 Fluid Management (24hrs): -Intake/Output last 3 shifts: No intake/output data recorded. Gen: Alert, Awake, No Acute Distress Eyes: PERRLA, EOMI, no icterus ENT: MMM, trachea midline Resp: Clear to auscultation bilaterally, normal respiratory effort Cardio: Regular rate and rhythm, normal S1, S2, no M/R/G. No SRINIVASAN. GI: Soft, Non-tender, Non-distended, Normoactive Bowel Sounds MSK: No joint effusions or erythema: mild deconditioning Skin: No jaundice or rash Neuro: chicken sexer 3-7, 9-11 intact and equal. Strength grossly equal in muscle groups of the bilateral UEsand LEs. Psych: Ox3, appropriate affect and cognition Body mass index is 31.48 kg/m . Data Review: CBC WBC/Hgb/Hct/Plts: 11.71/11.7/35.8/265 (10/30 101) Chem 7([facility]) Bun/Creat/Cl/CO2/Glucose: 11/0.57/108/21/89 (10/30 101) Na/K+/Phos/Mg/Ca: 139/3.3/3.6/1.7/8.8 (10/30 101) Coags Ptt/Pt/Inr: 31.1/14.2/1.1 (10/30 101) Additional Labs No results found for: BNP No results found for: HSTROP No results found for: CHOLESTEROL, TRIG, HDL No results found for: ALT, AST, ALKPHOS, BILITOTAL, BILIDIRECT Imaging: XR CHEST PORTABLE Final Result IMPRESSION: Right lung volume is diminished with patchy right midlung opacities. Atelectasis or developing infection are considerations in the appropriate clinical setting. Medications: SCHEDULED: apixaban (ELIQUIS) tablet 5 mg, 5 mg, BID Escitalopram (LEXAPRO) tablet 10 mg, 10 mg, QHS lamoTRIgine (laMICtal) tablet 100 mg, 100 mg, Daily lamoTRIgine (laMICtal) tablet 250 mg, 250 mg, QHS OXcarbazepine (TRILEPTAL) tablet 150 mg, 150 mg, QHS rOPINIRole (REQUIP) tablet 1.5 mg, 1.5 mg, QHS zonisamide (ZONEGRAN) capsule 200 mg, 200 mg, Daily And zonisamide (ZONEGRAN) capsule 300 mg, 300 mg, QHS PRNs: Acetaminophen, 650 mg, Q6H PRN LORazepam, 0.5 mg, TID PRN Melatonin, 6 mg, QHS PRN Ondansetron 4mg/2ml, 4 mg, Q6H PRN Or Ondansetron, 4 mg, Q6H PRN Polyethylene glycol, 17 g, Daily PRN Sodium chloride 0.9%, 250 mL, PRN ALLERGIES: She is allergic to iodides, levetiracetam, phenytoin, prochlorperazine, shellfish-derived products, soybean oil, and penicillins. Home MEDS: Prior to Admission Medications Prescriptions Last Dose Informant Patient Reported? Taking? Escitalopram 10 MG tablet Yes No Sig: Take 1 tablet by mouth at bedtime. LORazepam 0.5 MG tablet Yes No Sig: Take 0.5-1 tablets by mouth 3 times daily as needed. LamoTRIgine 100 MG Tab SR 24 HR Yes No Sig: Take 1 tablet by mouth daily. LamoTRIgine 200 MG Tab SR 24 HR Yes No Sig: Take 1 tablet by mouth Every night. Levonorgestrel (Mirena, 52 MG,) 20 MCG/DAY Yes No Si Intra Uterine Device by Intrauterine route once. OXcarbazepine 150 MG tablet Yes No Sig: Take 1 tablet by mouth at bedtime. Ravulizumab-cwvz (Ultomiris) 300 MG/30ML Solution No No Si mL by Intravenous route every 56 days. Valtoco 10 MG Dose 10 MG/0.1ML Liquid Yes No Si mg by Nasal route as needed. apixaban 5 MG tablet Yes No Sig: Take 1 tablet by mouth 2 times daily. rOPINIRole 1 MG tablet Yes No Sig: Take 1.5 tablets by mouth Every night. zonisamide 100 MG capsule Yes No Sig: Take by mouth 2 times daily. 2 caps in the am , 3 caps at bedtime Facility-Administered Medications: None Associated attestation - Adolfo Flores MD - 10/30/2022 11:21 PM EDT See H&P attestation * Yudi Brown - 10/30/2022 8:23 AM EDT Acute Occupational Therapy Evaluation Prior to Admission AM-PAC Score: PRIOR LEVEL AM-PAC Activity Raw Score: 20 Current AM-PAC score(s): CURRENT AM-PAC Activity Raw Score: 14 Based on the above AM-PAC score(s) and OT clinical judgment, discharge destination recommendation is: Inpatient Rehab Facility Supporting Factors (would benefit from skilled therapy services): Patient status is anticipated to be appropriate to tolerate inpatient rehab therapy requirements at time of discharge from acute care, Impaired functional status, Decreased strength, Impaired balance, Decreased endurance, Impaired self-care abilities, Assistance needed with functional mobility, Fall risk, Recent decline in functional mobility, Recent decline in self-care abilities, Patient has appropriate assistance and setup at home for ultimate discharge to home once patient has progressed functionally following inpatient rehab Mobility equipment available at home: none used ADL equipment available at home: elevated toilet seat (In the process of purchasing a shower bench) Equipment recommendations for discharge: tub bench, 2 wheeled walker, bathing equipment, dressing equipment, feeding equipment Current therapy frequency recommendation(s) in acute: 5 times a week Precautions and Weightbearing Status: OT Existing Precautions/Restrictions: fall, seizure (Exit alarm) No critical lines at this time Patient Safety Communication Prior to Visit: Nursing Subjective: Pt agreeable to therapy and states I wish I could have my legs and arms back Pain: General Pain Documentation (Adult, OB, Peds) Presence of Pain: complains of pain/discomfort Pain Location: leg, left, flank, left (tongue, right thumb) DVPRS (Defense and Veterans Pain Rating Scale) DVPRS: Rest: 6- moderate pain Home Setting Residence: House Lives With: dependent child(roxy) (11 year old son) First floor setup: bedroom, tub shower Number of stairs to enter home: 5 with rail + 1 into home Number of stairs in home: 0 Mobility Equipment Available: none used ADL Equipment Available: elevated toilet seat (In the process of purchasing a shower bench) Home Environment Details: Pt reports that she lives with her son however her father/mother check into help often Previous Level of Function Prior level ADL Overview: Needs assist Dominant Hand: Right Bathing: needs assist Upper Body Dressing: independent Lower Body Dressing: needs assist Grooming: independent Toileting: needs assist Eating: needs assist Bed Mobility/Transfers: independent Ambulation Skills: independent Assistive Device: none used Level of Ambulation: household Prior Level of Function Details: Pt endorses about 15 recent falls in last 6 months that are not seizure related, stating that she feels like her legs just drop and she cannot use her leg muscles. Pt reports that she needs help donning/doffing pants and oftentimes has to call her son or parents to help her manage clothing. Pt reports that she struggles eating [facility] Pt reports that she is purchasing eating equipment. IADL History IADLs: needs assist Primary Language: [place] Islander IADL Comments: Pt reports that her parents help with IADLs tasks and that she does not drive. Objective/Observation: Vitals/Vitals Responses to Treatment: No adverse response to treatment. O2 Device: room air Vision Screen Currently wearing corrective lenses: No (Pt reports that she wears glasses at baseline) Subjective Patient Complaints: Double vision (present at baseline) Clinical Observations: Pt has jerky tracking. Speech Speech: no gross deficits noted Hearing Hearing: no gross deficits noted Cognition Overall Cognitive Status: Within Functional Limits Arousal/Alertness: Appropriate responses to stimuli Orientation Level: Oriented X4 Following Commands: Follows all commands and directions without difficulty Safety Judgment: Good awareness of safety precautions Awareness of Errors: Good awareness of errors made Deficits: Fully aware of deficits Attention Span: Appears intact Memory: Appears intact Problem Solving: Able to problem solve independently ADLs: ADL Anticipated Performance (ADLs not directly observed this session): Eating, Grooming, Bathing, UE Dressing, LE Dressing, Toileting Eating Assistance: Maximal Eating Location: chair Grooming Assistance: Minimal Grooming Location: seated at sink Bathing Assistance: Moderate Bathing Location: seated on shower chair UE Dressing Assistance: Minimal UE Dressing Location: edge of bed LE Dressing Assistance: Maximal LE Dressing Location: standing, edge of bed Toilet Assistance: Maximal Toileting Location: toilet Extremity Assessments: RUE Assessment RUE Assessment: Exceptions to WFL Right UE Assessment Details: ROM limited in shoulder flexion, achieving approximately 70 degrees. MMT 3+/5 throughout. Grasp weak and equal LUE Assessment LUE Assessment: Exceptions to WFL Left UE Assessment Details: ROM limited in shoulder flexion, achieving approximately 70 degrees. MMT 3+/5 throughout. Grasp weak and equal Balance: Sitting Balance Static Sitting-Level of Assistance: Standby Dynamic Sitting-Level of Assistance: Contact guard Skilled Rationale: Verbal cues, Tactile cues, Technique of activity, Cues for increased safety Sitting Balance Skilled Intervention/Details: Pt tolerated sitting EOB for approximately 10 minuteswith CGA during dynamic sitting due to retropulsive LOB. Standing Balance Static Standing-Level of Assistance: Contact guard Dynamic Standing-Level of Assistance: Minimum assistance Standing-Balance Support: Gait belt (Non skid socks) Skilled Rationale: Verbal cues, Tactile cues, Technique of activity, Cues for increased safety Standing Balance Skilled Intervention/Details: Pt tolerated standing for approximately 5 minutes with frequent LOB requiring min A to correct. Neuro: Sensation Sensation Comments: Light touch intact; pt reports that she has chills in her legs often Proprioception Proprioception: intact Fine Motor Coordination Additional Documentation: Yes Fine Motor Coordination Left Hand, Finger To Nose: mild impairment Right Hand, Finger To Nose: mild impairment Left Hand Thumb/Finger Opposition Skills: mild impairment Right Hand Thumb/Finger Opposition Skills: mild impairment Left Hand, Diadochokinesis Skills: normal performance Right Hand, Diadochokinesis Skills: normal performance Fine Motor Coordination Tests: Pt demonstrated decreased ability to oppose as a result of weakness.Pt demonstrated decreased accuracy when doing finger to nose. Skin and Edema: Skin Integrity Skin Integrity Description: WFL (WFL for all visible areas) Edema Edema: none noted Mobility Assessment: Supine to Sit Mobility Dooly Level: Supine->Sit: stand-by assist Bed Features/Set-up: Supine->Sit: Head of bed elevated, Use of bed rail Skilled Rationale: Technique of activity, Cues for increased safety Skilled Intervention/Details: Supine->Sit: Pt completed x 1 supine to sit with SBA to ensure balance maintenance throughout. Transfer Assessment: Sit to Stand Transfer Dooly Level: Sit->Stand: contact guard assist Assistive Device: Sit->Stand: gait belt (Non skid socks) Skilled Rationale: Tactile cues, Verbal cues, Technique of activity, Cues for increased safety Skilled Intervention/Details: Sit->Stand: Pt completed x 2 sit to stand from EOB with CGA to ensure balance maintenance as pt reports that she gets no warning before seizures/legs dropping. Stand to Sit Transfer Dooly Level: Stand->Sit: contact guard assist Assistive Device: Stand->Sit: gait belt (Non skid socks) Skilled Rationale: Hand placement, Verbal cues, Tactile cues, Technique of activity, Cues for increased safety Skilled Intervention/Details: Stand->Sit: Pt completed x 1 stand to sit to EOB and x 1 stand to sit to armed chair with CGA to maintain slowed descent. Functional Mobility: Functional Mobility Dooly Level: Functional Mobility/Gait: minimum assist (75% patient effort) (CGA-Min A) Assistive Device: Functional Mobility/Gait: gait belt (Non skid socks) Functional Mobility Distance: Distance needed for common household mobility Functional Mobility Deficits: Balance, Generalized weakness, Decreased step length Functional Mobility Skilled Rationale: Cues for increased safety, Hand placement, Tactile cues, Technique of activity, Facilitate postural control Skilled Intervention/Details - Functional Mobility/Gait: Pt ambulated with frequent LOB (some requiring therapist correction) and overall unsteadiness. Outcome Score(s): CURRENT [facility] Daily Activity Inpatient Short Form Putting on/Taking Off Lower Body Clothin - A Lot of Assistance Bathin - A Lot of Assistance Toiletin - A Lot of Assistance Putting on/Taking Off Upper Body Clothin - A Little Assistance Groomin - A Little Assistance Eatin - A Lot of Assistance CURRENT -[facility] Activity Raw Score: 14 CURRENT -[facility] Activity Functional Limitation/Modifier: 59.67% Currently Impaired in Daily Activity- CK Assessment & Plan: Patient was admitted for breakthrough seizures and seen for therapy evaluation related to I/ADL participation, functional balance, functional mobility, and fine motor coordination. Exam findings include impairments in: balance, coordination, endurance, joint integrity and mobility, motor function, ROM, sensation, strength, transfers, vision. These impairments contribute to occupational performance limitations including bathing, dressing, grooming, toileting, functional mobility, ADL transfers, work/school integration, community integration, leisure integration. The following factors impact the plan of care: Hx of epilepsy, MG, anxiety Psychosocial Factors Positive indicators for performance: Adequate support system, Positive interpersonal relationships,Active participation in community/group program Possible barriers for performance: Past medical history of psychosocial impairments Patient will benefit from skilled occupational therapy to address these impairments, occupational performance limitations, and participation restrictions. Patient's rehab potential is: good, to achieve stated therapy goals. Planned Therapy Interventions (OT Eval): ADL retraining, balance training, IADL retraining, functional activity tolerance, fine motor coordination training, ROM (range of motion), strengthening, transfer training, motor coordination training Patient Instruction/Education this session: Pt educated on the importance of EOB/OOB activities in improving independence in self-care/functional activity participation and on the role of OT/OT plan of care. Pt verbalized understanding. Plan for next session: Continue OT to address ADL participation using DME/AE (dressing, eating), ADL's in standing, and functional balance. Acute OT Goals Plan of Care by Madai Dumas OT at 10/30/2022 8:30 AM Version 1 of 1 Problem: OT - Dressing Goal: Upper Body Dressing Description: Pt will complete UE dressing task Edge of bed with independence for improved ability to complete self-care activities. Outcome: Ongoing Goal: Lower Body Dressing Description: Pt will complete LE dressing tasks with independence for improved ability to complete self-care activities. Outcome: Ongoing Problem: OT - Endurance Goal: Endurance Functional Mobilty Around Home Description: Pt will complete distance needed for common household mobility Supervision A Outcome: Ongoing Problem: OT - Strength/ROM Goal: Strength/ROM ADL Participation Description: Pt will demonstrate independence with UE exercise program to prevent deconditioning while in the hospital and to maximize UE ROM/coordination/strength for ADL participation. Outcome: Ongoing Problem: OT - Other Goal: Energy Conservation Task Recall Description: Pt will independently recall 4 energy conservation principles to increase functional activity tolerance during ADLs, IADLs, and mobility tasks. Outcome: Ongoing OT treatment consisted of the following to work and progress towards the above goal(s): OT Evaluation and Treatment Time OT Evaluation (Moderate) Time Entry: 31 Evaluating Therapist: MONIQUE Olvera Additional Details: Co-evaluation/co-treatment performed?: Yes, simultaneous billable skilled care This co-evaluation session performed between OT and PT was beneficial, necessary and provided distinct services in establishing this person's individual plan of care. Medical complexity with functional deficits necessitated two skilled therapy disciplines working concurrently to determine each discipline's goals. This co-treatment was medically necessary due to patient's: Coordination issues I used gloves and facemask in today's patient interaction. OT Evaluation Complexity Occupational Profile and Client History: Moderate - expanded history Assessment of Occupational Performance: Moderate (3-5 performance deficits) Clinical Decision/Performance Deficits: Moderate (detailed assessments w/several treatment options) Time In: 751 Time Out: 822 Total Visit Time: 31 minutes Total Treatment Time (skilled, billable minutes): 31 minutes Patient location at end of session: chair and RN aware Alarms on at end of session: chair alarm Needs in reach. Upon discontinuation of Acute Care Occupational Therapy Services or patient discharge from the hospital this note represents the current Occupational Therapy Discharge Summary. Associated attestation - Madai Dumas OT - 10/30/2022 11:58 AM EDT I, Madai Dumas OT, provided direct guidance in the room during this patient care session. I attest that all documentation reflects accurate skilled clinical decisions and judgements. * Juliana Thrasher, PT - 10/30/2022 7:53 AM EDT Acute Physical Therapy Evaluation Prior to Admission [facility] score(s): PRIOR LEVEL AM-PAC Mobility Raw Score: 23 Current AM-PAC score(s): CURRENT AM-PAC Mobility Raw Score: 16 Based on the above AM-PAC score(s) and PT clinical judgment, patient is a good candidate for discharge to Inpatient Rehab Facility Supporting Factors (would benefit from skilled therapy services): Fall risk, Impaired balance Mobility equipment available at home: none used ADL equipment available at home: elevated toilet seat (In the process of purchasing a shower bench) Equipment needed for discharge: to be determined Current therapy frequency recommendation in acute: Therapy Frequency: 5 times a week Precautions and Weightbearing Status: Existing Precautions/Restrictions: fall, seizure No critical lines at this time Patient Safety Communication Prior to Visit: Nursing Subjective: Pt agreed to PT Pain: General Pain Documentation (Adult, OB, Peds) Presence of Pain: complains of pain/discomfort Pain Location: leg, left, flank, left (tongue, right thumb) DVPRS (Defense and Veterans Pain Rating Scale) DVPRS: Rest: 6- moderate pain DVPRS: Activity: 6- moderate pain Home Setting Residence: House Lives With: dependent child(roxy) (11 year old son) First floor setup: bedroom, tub shower Number of stairs to enter home: 5 with rail + 1 into home Number of stairs in home: 0 Mobility Equipment Available: none used ADL Equipment Available: elevated toilet seat (In the process of purchasing a shower bench) Home Environment Details: Pt reports that she lives with her son however her father/mother check into help often Previous Level of Function Prior level ADL Overview: Needs assist Dominant Hand: Right Bathing: needs assist Upper Body Dressing: independent Lower Body Dressing: needs assist Grooming: independent Toileting: needs assist Eating: needs assist Bed Mobility/Transfers: independent Ambulation Skills: independent Assistive Device: none used Level of Ambulation: household Prior Level of Function Details: Pt endorses about 15 recent falls in last 6 months that are not seizure related, stating that she feels like her legs just drop and she cannot use her leg muscles. Pt reports that she needs help donning/doffing pants and oftentimes has to call her son or parents to help her manage clothing. Pt reports that she struggles [facility] Pt reports that she is purchasing eating equipment. Objective/Observation: Vitals/Vitals Responses to Treatment: no adverse response to PT O2 Device: room air Cognition Overall Cognitive Status: Within Functional Limits Arousal/Alertness: Appropriate responses to stimuli Orientation Level: Oriented X4 Following Commands: Follows all commands and directions without difficulty Safety Judgment: Good awareness of safety precautions Awareness of Errors: Good awareness of errors made Deficits: Fully aware of deficits Vision Screen Currently wearing corrective lenses: No Subjective Patient Complaints: Double vision (since yesterday) Speech Speech: no gross deficits noted Hearing Hearing: no gross deficits noted Extremity Assessments: RLE Assessment Right LE Assessment Details: strength: 2/5 hip flexion, 4-/5 knee extension, 4- /5 ankle dorsiflexion LLE Assessment Left LE Assessment Details: strength: 2/5 hip flexion, 4-/5 knee extension, 4-/5 ankle dorsiflexion Sensation Sensation Comments: per pt: chills in my legs for past week or two Mobility Assessment: Supine to Sit Mobility Dooly Level: Supine->Sit: stand-by assist Bed Features/Set-up: Supine->Sit: Head of bed elevated, Use of bed rail Skilled Rationale: Verbal cues, Tactile cues, Hand placement, Technique of activity Balance: Sitting Balance Static Sitting-Level of Assistance: Standby Standing Balance Static Standing-Level of Assistance: Contact guard Standing-Balance Support: Gait belt Transfer Assessment: Sit to Stand Transfer Dooly Level: Sit->Stand: contact guard assist Assistive Device: Sit->Stand: gait belt Skilled Rationale: Verbal cues, Tactile cues, Hand placement, Technique of activity Stand to Sit Transfer Dooly Level: Stand->Sit: contact guard assist Assistive Device: Stand->Sit: gait belt Skilled Rationale: Verbal cues, Tactile cues, Hand placement, Technique of activity Gait/Functional Mobility: Gait Assessment Dooly Level: Gait: (CGA to min A) Assistive Device: Gait: gait belt Ambulation Distance (Feet): 120 Gait Deviations Identified: decreased xuan, decreased gait speed, decreased heel strike, decreased step length, decreased stride length Gait Skilled Rationale: verbal, tactile, upright posture, increase step length, increase foot clearance Skilled Intervention/Details - Gait: Pt fluctuated between CGA and min A. Outcome Score(s): CURRENT [facility] Basic Mobility Inpatient Short Form Turning over in bed: 3 - A Little Assistance Sitting/standing from chair: 3 - A Little Assistance Moving from lying on back to sittin - A Little Assistance Moving to and from bed to chair: 3 - A Little Assistance Walk in hospital room: 3 - A Little Assistance Climbing 3-5 steps with a railin - Total Assistance CURRENT [facility] Mobility Raw Score: 16 CURRENT [facility] Mobility Functional Limitation/Modifier: 54.16% Currently Impaired in Basic Mobility- CK Assessment & Plan: Patient was admitted for 32 y.o. female with history of myasthenia gravis (dx in 2018), epilepsy, and anxiety who presents for breakthrough seizures (per chart review) and seen for therapy evaluation related to mobility concerns. Exam findings include impairments in: Strength, Balance, Posture, Transfers, Gait/Locomotion, Cognition/Arousal/Attention, Aerobic capacity/endurance. These impairments contribute to functional limitations including Difficulty with transfers, Difficulty with bed mobility, Decreased functional mobility. Current clinical presentation is Evolving - changing/inconsistent clinical characteristics (Moderate). Patient history factors impacting Plan Of Care include . Patient will benefit from skilled physical therapy to address these impairments, functional limitations, and participation restrictions andhas good rehab potential to achieve therapy goals. Planned Therapy Interventions: balance training, bed mobility training, endurance, functional activity tolerance, gait training, neuromuscular re- education, strengthening, transfer training, posturalre-education Patient Instruction/Education this session: plan for PT session Plan for next session: progress transfers, gait, balance Acute PT Goals Plan of Care by Juliana Thrasher PT at 10/30/2022 2:30 PM Version 1 of 1 Problem: PT - Balance/Coordination/Neuro Re-Education Goal: Standing Dynamic/Static Balance Description: Pt will perform standing balance tasks for 10 minutes with standby assistance with outan assistive device in order to improve functional mobility and safety with standing tasks. Outcome: Ongoing Problem: PT - Mobility Goal: Ambulation Description: Pt will ambulate 150 feet with out an assistive device with supervision to improve ability to navigate home environment. Outcome: Ongoing Goal: Stairs Description: Pt will ascend/descend 5 stairs with 1 railings with supervision with out an assistivedevice to improve ability to perform functional mobility necessary in recommended discharge environment. Outcome: Ongoing Problem: PT - Transfers Goal: Supine <-> Sit Description: Pt will perform bed mobility with flat bed & no rail with modified independence inorder to improve functional mobility and safety. Outcome: Ongoing Goal: Sit <-> Stand Description: Pt will perform sit to/from stand transfers with supervision with out an assistive device in order to improve functional mobility and safety. Outcome: Ongoing PT treatment consisted of the following to progress towards the above goal(s): PT Evaluation and Treatment Time PT Evaluation (Moderate) Time Entry: 29 Evaluating Therapist: Juliana Thrasher PT Additional Details: Co-evaluation/co-treatment performed?: Yes, simultaneous billable skilled care This co-evaluation session performed between PT and OT was beneficial, necessary and provided distinct services in establishing this person's individual plan of care. Medical complexity with functional deficits necessitated two skilled therapy disciplines working concurrently to determine each discipline's goals. This co-treatment was medically necessary due to patient's: Postural control I used gloves and facemask in today's patient interaction. Evaluation Complexity Components History: Moderate (1-2 personal factors and/or comorbidities) Body Systems Review: Moderate (Addressing a total of 3 or more elements) Clinical Presentation: Evolving - changing/inconsistent clinical characteristics (Moderate) Clinical Decision Making: Moderate Time In: 0753 Time Out: 08 Total Visit Time: 29 minutes Total Treatment Time (skilled, billable minutes): 29 minutes Patient location at end of session: chair Alarms on at end of session: RN aware Needs in reach. Upon discontinuation of Acute Care Physical Therapy Services or patient discharge from the hospitalthis note represents the current Physical Therapy Discharge Summary. [facility] of Present illness Narrative* Stephanie Rebolledo RN - 11/02/2022 2:14 PM EDT Final Discharge Planning and Transportation Final Discharge Planning Discharge Disposition: Home Services at Discharge: Occupational Therapy, Physical Therapy Community Agency Name(s) For Handoff: Plan to discharg to home with outpatient PT/OT and support from family. Plan Plan Comments: Follow up with neurology post discharge. Shirt Sorter Called: No Mode of Transfer: private vehicle Accompanied By: family member Stephanie ANGLIN RN Clinical Record Tester [phone] * Yudi Brown - 11/02/2022 12:12 PM EDT Acute Occupational Therapy Treatment Prior to Admission AM-PAC Score: PRIOR LEVEL AM-PAC Activity Raw Score: 20 PRIOR LEVEL AM-PAC Mobility Raw Score: 23 Current AM-PAC score(s): CURRENT AM-PAC Activity Raw Score: 21 Based on the above AM-PAC score(s), and OT clinical judgment, discharge destination recommendation is: Home with initial assistance for IADLs. Barriers to discharge home: Patient needs assistance with IADLs (see note below) Supporting Factors (would benefit from skilled therapy services): Patient status is anticipated to be appropriate to tolerate inpatient rehab therapy requirements at time of discharge from acute care, Impaired functional status, Decreased strength, Impaired balance, Decreased endurance, Impaired self-care abilities, Assistance needed with functional mobility, Fall risk, Recent decline in functional mobility, Recent decline in self-care abilities, Patient has appropriate assistance and setup at home for ultimate discharge to home once patient has progressed functionally following inpatient rehab Mobility equipment available at home: none used ADL equipment available at home: elevated toilet seat (In the process of purchasing a shower bench) Equipment recommendations for discharge: bathing equipment, dressing equipment, feeding equipment, tub bench Current therapy frequency recommendation(s) in acute: 5 times a week Precautions and Weightbearing Status: OT Existing Precautions/Restrictions: fall, seizure No critical lines at this time Patient Safety Communication Prior to Visit: Nursing Subjective: Pt agreeable to therapy and states that she feels much better than when she was initially evaluated. Pt's mom present throughout session. Pain: General Pain Documentation (Adult, OB, Peds) Presence of Pain: denies pain/discomfort Objective/Observation: Vitals/Vitals Responses to Treatment: No adverse response to treatment. O2 Device: room air Speech Speech: no gross deficits noted Hearing Hearing: no gross deficits noted Cognition Overall Cognitive Status: Within Functional Limits Arousal/Alertness: Appropriate responses to stimuli Orientation Level: Oriented X4 Following Commands: Follows all commands and directions without difficulty Safety Judgment: Good awareness of safety precautions Awareness of Errors: Good awareness of errors made Deficits: Fully aware of deficits Attention Span: Appears intact Memory: Appears intact Problem Solving: Able to problem solve independently ADL Assessment/Intervention: Grooming Assistance: Stand by Grooming Location: standing at sink Grooming Deficit: Generalized weakness, Increased time to complete, Wash/dry hands, Wash/dry face, Oral care, Brushing hair Grooming Skilled Rationale (Verbal/Tactile/Visual/Demonstration): Cues for increased safety, Technique of activity Grooming Intervention/Details: Pt completed grooming tasks of oral care, hair brushing, face washing, and hand washing standing at the sink with SBA to explain adaptive strategies and ensure balance maintenance. UE Dressing Assistance: Independent UE Dressing Location: edge of bed UE Dressing Deficit: Generalized weakness, Increased time to complete UE Dressing Skilled Rationale (Verbal/Tactile/Visual/Demonstration): Cues for increased safety, Technique of activity UE Dressing Intervention/Details: Pt completed UB dressing EOB independently. LE Dressing Assistance: Stand by LE Dressing Location: edge of bed, standing LE Dressing Deficit: Thread RLE into pants, Thread LLE into pants, Activity tolerance, Generalized weakness LE Dressing Skilled Rationale (Verbal/Tactile/Visual/Demonstration): Cues for increased safety LE Dressing Intervention/Details: Pt completed LB dressing of donning pants with SBA to ensure balance maintenance. Therapist educated pt on utilizing figure four technique and pt able to srinath pants with SBA to ensure balance maintenance in standing. Pt states that utilizing figure four technique is very helpful and much easier. Extremity Assessments: See OT Evaluation flowsheet for Extremity Measurement updates. Balance: Sitting Balance Static Sitting-Level of Assistance: Independent Dynamic Sitting-Level of Assistance: Independent Skilled Rationale: Verbal cues, Tactile cues Sitting Balance Skilled Intervention/Details: Pt tolerated sitting EOB for approximately 30 minuteswith no LOB Standing Balance Static Standing-Level of Assistance: Supervision Dynamic Standing-Level of Assistance: Supervision Standing-Balance Support: Gait belt (Non skid socks) Skilled Rationale: Verbal cues, Technique of activity, Cues for increased safety Standing Balance Skilled Intervention/Details: Pt tolerated standing for approximately 10 minutes with no LOB/SOB. Mobility Assessment/Intervention: Supine to Sit Mobility D[place]y Level: Supine->Sit: independent Bed Features/Set-up: Supine->Sit: Head of bed elevated, Use of bed rail Transfer Assessment/Intervention: Sit to Stand Transfer Dooly Level: Sit->Stand: stand-by assist Assistive Device: Sit->Stand: gait belt (Non skid socks) Skilled Rationale: Verbal cues, Technique of activity Skilled Intervention/Details: Sit->Stand: Pt completed x 2 sit to stands from EOB with SBA to ensure balance maintenance. Stand to Sit Transfer Dooly Level: Stand->Sit: stand-by assist Assistive Device: Stand->Sit: gait belt (Non skid socks) Skilled Rationale: Verbal cues, Cues for increased safety Skilled Intervention/Details: Stand->Sit: Pt completed x 2 stand to sits EOB with SBA to ensure controlled descent. Functional Mobility: Functional Mobility Dooly Level: Functional Mobility/Gait: stand-by assist Assistive Device: Functional Mobility/Gait: gait belt (Non skid socks) Functional Mobility Distance: Distance needed for common household mobility Functional Mobility Deficits: Balance, Generalized weakness Functional Mobility Skilled Rationale: Cues for increased safety Skilled Intervention/Details - Functional Mobility/Gait: Pt ambulated with no LOB/SOB with SBA to ensure balance maintenance. Outcome Score(s): CURRENT AM-[facility] Daily Activity Inpatient Short Form Putting on/Taking Off Lower Body Clothin - A Little Assistance Bathin - A Little Assistance Toiletin - A Little Assistance Putting on/Taking Off Upper Body Clothin - No Assistance Groomin - No Assistance Eatin - No Assistance CURRENT AM-[facility] Activity Raw Score: 21 CURRENT AM-[facility] Activity Functional Limitation/Modifier: 32.79% Currently Impaired in Daily Activity- CJ Interventions: Intervention 1 Intervention Name: Homebound Education Details: Therapist educated pt on homebound education, including education pertaining to utilizing figure four position when completing lower body dressing, using a tub transfer bench to prevent fatigue, using a dressing stick to aid in lower body dressing, utilizing built up tools for eating and grooming tasks, energy conservation strategies throughout the day, and getting assistance with IADLs.Pt encouraged to practice fine motor tasks at home to maintain fine motor coordination abilities. Pt verbalized understanding and did not have any questions. Assessment & Plan: Pt is demonstrating good progress in occupational therapy goals this date, primarily in ADL participation, functional balance, and functional mobility. Patient Instruction/Education this session: Pt educated on the importance of EOB/OOB activities in improving independence in self-care/functional activity participation and on the role of OT/OT plan of care. Pt verbalized understanding. Plan for next session: Discontinue acute OT services this date as pt appropriate for home. Acute OT Goals Plan of Care by Madai Dumas OT at 11/02/2022 12:00 PM Version 1 of 1 Problem: OT - Dressing Goal: Upper Body Dressing Description: Pt will complete UE dressing task Edge of bed with independence for improved ability to complete self-care activities. Outcome: Adequate for Discharge Goal: Lower Body Dressing Description: Pt will complete LE dressing tasks with independence for improved ability to complete self-care activities. Outcome: Adequate for Discharge Problem: OT - Endurance Goal: Endurance Functional Mobilty Around Home Description: Pt will complete distance needed for common household mobility Supervision A Outcome: Adequate for Discharge Problem: OT - Strength/ROM Goal: Strength/ROM ADL Participation Description: Pt will demonstrate independence with UE exercise program to prevent deconditioning while in the hospital and to maximize UE ROM/coordination/strength for ADL participation. Outcome: Adequate for Discharge Problem: OT - Other Goal: Energy Conservation Task Recall Description: Pt will independently recall 4 energy conservation principles to increase functional activity tolerance during ADLs, IADLs, and mobility tasks. Outcome: Adequate for Discharge OT treatment consisted of the following to work and progress towards the above goal(s): OT Evaluation and Treatment Time Self Care/Home Management (ADLs) Time Entry: 29 Therapeutic Activity Time Entry: 15 Treating Therapist: MONIQUE Olvera Additional Details: Co-evaluation/co-treatment performed?: No simultaneous skilled care performed I used gloves and facemask in today's patient interaction. Patient location at end of session: bed with head of bed elevated and RN aware Alarms on at end of session: none Needs in reach. Time In: 1128 Time Out: 1212 Total Visit Time: 44 minutes Total Treatment Time (skilled, billable minutes): 44 minutes Upon discontinuation of Acute Care Occupational Therapy Services or patient discharge from the hospital this note represents the current Occupational Therapy Discharge Summary. Associated attestation - Madai Dumas OT - 11/02/2022 1:23 PM EDT I, Madai Dumas OT, provided direct guidance in the room during this patient care session. I attest that all documentation reflects accurate skilled clinical decisions and judgements. * Efrain Quesada, PT - 11/02/2022 9:52 AM EDT Acute Physical Therapy Treatment Prior to Admission [facility] score(s): PRIOR LEVEL AM-PAC Mobility Raw Score: 23 PRIOR LEVEL AM-PAC Activity Raw Score: 20 Current AM-PAC score(s): CURRENT AM-PAC Mobility Raw Score: 20 Based on the above AM-PAC score(s) and PT clinical judgment, patient is a good candidate for discharge to Home (with assist from family prn for IADL's) Barriers to discharge home: Patient needs assistance with IADLs (see note below) Supporting Factors (would benefit from skilled therapy services): Fall risk, Impaired balance Mobility equipment available at home: none used ADL equipment available at home: elevated toilet seat (In the process of purchasing a shower bench) Equipment needed for discharge: none Current therapy frequency recommendation in acute: Therapy Frequency: 1 time a week Precautions and Weightbearing Status: Existing Precautions/Restrictions: fall, seizure No critical lines at this time Patient Safety Communication Prior to Visit: Nursing Subjective: Pt agreeable to therapy. Reports feeling stronger. Mother present. Pain: General Pain Documentation (Adult, OB, Peds) Presence of Pain: denies pain/discomfort Objective/Observation: Vitals/Vitals Responses to Treatment: VSS. Denies fatigue this session. O2 Device: room air Cognition Overall Cognitive Status: Within Functional Limits Arousal/Alertness: Appropriate responses to stimuli Orientation Level: Oriented X4 Following Commands: Follows all commands and directions without difficulty Safety Judgment: Good awareness of safety precautions Awareness of Errors: Good awareness of errors made Deficits: Fully aware of deficits Extremity Assessments: See PT Evaluation flowsheet for Extremity Measurement updates. Balance: Sitting Balance Static Sitting-Level of Assistance: Independent Dynamic Sitting-Level of Assistance: Independent Standing Balance Static Standing-Level of Assistance: Supervision Dynamic Standing-Level of Assistance: Supervision Standing-Balance Support: Gait belt Skilled Rationale: Positioning, Tactile cues Standing Balance Skilled Intervention/Details: no LOB or buckling noted in standing. Mobility Assessment/Intervention: Supine to Sit Mobility D[place]y Level: Supine->Sit: independent Bed Features/Set-up: Supine->Sit: Head of bed elevated Skilled Rationale: Verbal cues Transfer Assessment/Intervention: Sit to Stand Transfer D[place]y Level: Sit->Stand: supervision Assistive Device: Sit->Stand: gait belt Skilled Rationale: Positioning, Verbal cues Skilled Intervention/Details: Sit->Stand: x4 stands. Cues to use UE's for push-off. Gait/Functional Mobility Assessment/Intervention: Gait Assessment Dooly Level: Gait: supervision Assistive Device: Gait: gait belt Ambulation Distance (Feet): 250 Gait Deviations Identified: decreased gait speed Gait Skilled Rationale: verbal Skilled Intervention/Details - Gait: No LOB or LE buckling noted. No cueing needed to improve gait quality. Stairs Assessment/Intervention: Stairs Assessment D[place]y Level: Stair Negotiation: stand-by assist Assistive Device: Stair Negotiation: gait belt, right rail (ascending) Number of stairs: 7 Stairs Skilled Rationale: verbal, nonreciprocal pattern Skilled Intervention/Details - Stairs: Cueing on which foot to lead with due to LLE weakness. Pt reports high anxiety with stairs due to hx of falls. Worked on only one step up and down due to anxiety. Outcome Score(s): CURRENT [facility] Basic Mobility Inpatient Short Form Turning over in bed: 4 - No Assistance Sitting/standing from chair: 3 - A Little Assistance Moving from lying on back to sittin - No Assistance Moving to and from bed to chair: 3 - A Little Assistance Walk in hospital room: 3 - A Little Assistance Climbing 3-5 steps with a railin - A Little Assistance CURRENT [facility] Mobility Raw Score: 20 CURRENT [facility] Mobility Functional Limitation/Modifier: 35.83% Currently Impaired in Basic Mobility- CJ Interventions: Extensive education to patient and mother on use of the RPE scale to avoid over exertion. Additional education provided on adapting tasks at home to avoid over fatigue, energy conservation, when to get assist from family for IADL's. Assessment & Plan: Pt progressed sit to stands, gait, and stairs to supervision/SBA. Pt and mother also demonstrate great understanding on energy conservation strategies and tips t oavoid over fatigue. Patient Instruction/Education this session: RPE scale, see interventions above Plan for next session: continue education on RPE scale and energy conservation Acute PT Goals Plan of Care by Efrain Quesada PT at 11/02/2022 9:52 AM Version 1 of 1 Problem: PT - Balance/Coordination/Neuro Re-Education Goal: Standing Dynamic/Static Balance Description: Pt will perform standing balance tasks for 10 minutes with standby assistance with outan assistive device in order to improve functional mobility and safety with standing tasks. Outcome: Progressing Toward Goal Problem: PT - Mobility Goal: Ambulation Description: Pt will ambulate 150 feet with out an assistive device with supervision to improve ability to navigate home environment. Outcome: Progressing Toward Goal Goal: Stairs Description: Pt will ascend/descend 5 stairs with 1 railings with supervision with out an assistivedevice to improve ability to perform functional mobility necessary in recommended discharge environment. Outcome: Progressing Toward Goal Problem: PT - Transfers Goal: Supine <-> Sit Description: Pt will perform bed mobility with flat bed & no rail with modified independence inorder to improve functional mobility and safety. Outcome: Met This Shift Goal: Sit <-> Stand Description: Pt will perform sit to/from stand transfers with supervision with out an assistive device in order to improve functional mobility and safety. Outcome: Progressing Toward Goal PT treatment consisted of the following to progress towards the above goal(s): PT Evaluation and Treatment Time Therapeutic Activity Time Entry: 18 Gait Training Time Entry: 13 Treating Therapist: Efrain Quesada PT Additional Details: Co-evaluation/co-treatment performed?: No simultaneous skilled care performed - I used facemask, protective eye shield, and gloves in today's patient interaction. Patient location at end of session: chair Alarms on at end of session: RN aware Needs in reach. Time In: 951 Time Out: 1023 Total Visit Time: 31 minutes Total Treatment Time (skilled, billable minutes): 31 minutes Upon discontinuation of Acute Care Physical Therapy Services or patient discharge from the hospitalthis note represents the current Physical Therapy Discharge Summary. * Hill Limon MD - 11/01/2022 2:31 PM EDT Internal Medicine Daily Progress Note Patient: Doug Flanagan, 1990, [id number] Physician: Hill Limon MD, Gen Med 7 service Subjective/Interval History: No acute events overnight. She states that her headache pain is still present this morning but muchimproved from yesterday. She understands the plan for inpatient rehabilitation, would like to be reassessed by PT/OT given that she feels better from her initial assessment. Assessment/Plan: Doug Flanagan is a 32 y.o. female with history of myasthenia gravis (dx in 2018), epilepsy, and anxiety who presents for breakthrough seizures. Breakthrough seizures Patient with history of epilepsy now with breakthrough seizures x3 on 10/29 though not documented onEEG. Last seizure occurred August 2022. Differential for breakthrough seizures include infection, metabolic derangement, intoxication, inadequate AED titration, ingestion vs new dx PNES. - CXR concerning for right-sided atelectasis versus developing infectious process. Low suspicion for PNA given no clinical signs. Likely atelectasis in the setting of reduced activity at home - Continue home AEDs - Lamictal 150 mg AM, 250 mg PM - Trileptal 150 mg daily - Zonegran 200 mg AM, 300 mg PM - Consulted Neurology, appreciate recs - Increase Lamotrigine to 150 mg QAM and 250 mg QPM - Continue Zonisamide 200 mg QAM and 300 mg QPM and Oxcarbazepine 150 mg QHS - start Folic Acid - Consider weaning Oxcarbazepine outpatient pending rEEG results - Outpatient rEEG - f/up in [facility] clinic - Seizure precautions - Respiratory parameters q12h (NIF/VC) Hx of Myasthenia Gravis Diagnosed 2017. Last seen by [facility] neuromuscular 10/06/2022. AChR ab+. She is status post thymectomy and Soliris.Treated with Ultomiris and port placed in 2021 for PLEX. Has missed 4 months of ultomiris due to insurance billing issues with local neurologist. Has been resumed 08/2022. Has had progressively worsening weakness. At last appointment advised to start Mestinon 30 mg TID. Tried this for 2 weeks which worsened headaches and did not improve weakness. 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 - Consulted PT/OT - OT recommending IPR at this time. Looking into placement at [facility]. - Consulted neurology - NIF/ VC once - f/up in [facility] Neuromuscular clinic Chronic conditions Anxiety - Continue home Lexapro 10 mg daily Lab/Electrolyte Abnormalities Hypokalemia- 3.3 (10/30)- repleted with 40mEq K-Dur Vitamin D level ordered Checklist: DVT Prophylaxis: on apixaban Dispo: pending evaluation and treatment. OT recommending Code Status: Full Code Diet: DIET REGULAR Discussed with team and attending, Dr. Adolfo Flores MD, on rounds. Signed, Hill Limon MD Anesthesiology, PGY-1 Pager ID: [phone] Physical Exam: Temp: [97.9 F (36.6 C)-98.6 F (37 C)] 98 F (36.7 C) Pulse (Heart Rate): [68-87] 73 Resp Rate: [14-16] 15 BP: (102-120)/(58-69) 115/66 O2 Sat (%): [95 %-98 %] 98 % O2 Device: room air (11/01/22 0620) Lines/Drains/Airways/Wounds: Patient Lines/Drains/Airways Status Active Lines, Drains, Airways, & Wound Overview Name Placement date Placement time Site Days Implanted Port - Single Lumen Port 10/16/20 infraclavicular fossa, right 10/16/20 -- -- 746 Gen: Alert, Awake, No Acute Distress Eyes: PERRLA, EOMI, no icterus ENT: MMM, trachea midline Resp: Clear to auscultation bilaterally, normal respiratory effort Cardio: Regular rate and rhythm, normal S1, S2, no M/R/G. No SRINIVASAN. GI: Soft, Non-tender, Non-distended, Normoactive Bowel Sounds MSK: No joint effusions or erythema: mild deconditioning Skin: No jaundice or rash Neuro: chicken sexer 3-7, 9-11 intact and equal. Strength grossly equal in muscle groups of the bilateral UEsand LEs. Psych: Ox3, appropriate affect and cognition, mildly anxious Body mass index is 31.48 kg/m . Data Review: CBC WBC/Hgb/Hct/Plts: 7.46/12.4/38.0/280 (11/01 100) Chem 7(PMC) Bun/Creat/Cl/CO2/Glucose: 14/0.79/109/23/95 (11/01 100) Na/K+/Phos/Mg/Ca: 141/4.0/--/1.9/-- (11/01 100) Coags Ptt/Pt/Inr: 35.6/13.8/1.1 (11/01 100) Imaging: XR CHEST PORTABLE Final Result IMPRESSION: Right lung volume is diminished with patchy right midlung opacities. Atelectasis or developing infection are considerations in the appropriate clinical setting. Medications: SCHEDULED: apixaban (ELIQUIS) tablet 5 mg, 5 mg, BID cholecalciferol (VITAMIN D3) tablet 2,000 Units, 2,000 Units, Daily Escitalopram (LEXAPRO) tablet 10 mg, 10 mg, QHS Folic acid (FOLVITE) tablet 1 mg, 1 mg, Daily lamoTRIgine (laMICtal) tablet 150 mg, 150 mg, Daily lamoTRIgine (laMICtal) tablet 250 mg, 250 mg, QHS OXcarbazepine (TRILEPTAL) tablet 150 mg, 150 mg, QHS zonisamide (ZONEGRAN) capsule 200 mg, 200 mg, Daily And zonisamide (ZONEGRAN) capsule 300 mg, 300 mg, QHS PRNs: Acetaminophen, 650 mg, Q6H PRN LORazepam, 0.5 mg, TID PRN Melatonin, 6 mg, QHS PRN Ondansetron 4mg/2ml, 4 mg, Q6H PRN Or Ondansetron, 4 mg, Q6H PRN Polyethylene glycol, 17 g, Daily PRN Sodium chloride 0.9%, 250 mL, PRN ALLERGIES: She is allergic to iodides, levetiracetam, phenytoin, prochlorperazine, shellfish-derived products, soybean oil, and penicillins. Home MEDS: Prior to Admission Medications Prescriptions Last Dose Informant Patient Reported? Taking? Escitalopram 10 MG tablet Yes No Sig: Take 1 tablet by mouth at bedtime. LORazepam 0.5 MG tablet Yes No Sig: Take 0.5-1 tablets by mouth 3 times daily as needed. LamoTRIgine 100 MG Tab SR 24 HR Yes No Sig: Take 1 tablet by mouth daily. LamoTRIgine 200 MG Tab SR 24 HR Yes No Sig: Take 1 tablet by mouth Every night. Levonorgestrel (Mirena, 52 MG,) 20 MCG/DAY Yes No Si Intra Uterine Device by Intrauterine route once. OXcarbazepine 150 MG tablet Yes No Sig: Take 1 tablet by mouth at bedtime. Ravulizumab-cwvz (Ultomiris) 300 MG/30ML Solution No No Si mL by Intravenous route every 56 days. Valtoco 10 MG Dose 10 MG/0.1ML Liquid Yes No Si mg by Nasal route as needed. apixaban 5 MG tablet Yes No Sig: Take 1 tablet by mouth 2 times daily. rOPINIRole 1 MG tablet Yes No Sig: Take 1.5 tablets by mouth Every night. zonisamide 100 MG capsule Yes No Sig: Take by mouth 2 times daily. 2 caps in the am , 3 caps at bedtime Facility-Administered Medications: None Associated attestation - Adolfo Flores MD - 11/01/2022 4:36 PM EDT Attending Attestation: I have personally seen and examined Doug Flanagan and I agree with the physical exam as stated below. I have personally reviewed all available clinical data related to today's encounter including, butnot limited to, radiology images and reports, laboratory data, and procedure reports. I have been fully involved in formulation of the assessment and plan and agree with the resident or BETTINA findings and plan of care as documented with any exceptions or additions noted below. CK wnl. Myositis panel pending. Rocha to eval tomorrow. Pt requests PT/OT re-eval tomorrow. Otherwise med stable Signed, Adolfo Flores MD * Joann Nagel RCP - 11/01/2022 11:52 AM EDT 11/01/22 1150 Resp Parameters Non-Vent $$ Resp Parameters Non-Vent yes RT Intervention Parameters Non Vent Patient Interface mouth piece Patient Position semi fowlers Vital Capacity (ml) (VC ON BACK ORDER) NIF -40 Patient Effort good * Lesly Smith RCP - 10/31/2022 4:50 PM EDT 10/31/22 1649 Resp Parameters Non-Vent $$ Resp Parameters Non-Vent yes RT Intervention Parameters Non Vent Patient Interface mouth piece Patient Position semi fowlers NIF -40 Resp Rate 16 Patient Effort good * Lesly Smith RCP - 10/31/2022 11:42 AM EDT 10/31/22 1141 Resp Parameters Non-Vent $$ Resp Parameters Non-Vent yes RT Intervention Parameters Non Vent Patient Interface mouth piece Vital Capacity (ml) (unable to complete, equipment on back order) NIF -40 Resp Rate 14 Patient Effort good * Kb Mitchell MD - 10/31/2022 11:35 AM EDT Internal Medicine Daily Progress Note Patient: Doug Flanagan, 1990, [id number] Physician: Kb Mitchell MD, Gen Med 7 service Subjective/Interval History: No acute events overnight. She states that her headache pain is still present this morning but muchimproved from yesterday. She understands the plan for inpatient rehabilitation. Assessment/Plan: Doug Flanagan is a 32 y.o. female with history of myasthenia gravis (dx in 2018), epilepsy, and anxiety who presents for breakthrough seizures. Breakthrough seizures Patient with history of epilepsy now with breakthrough seizures x3 on 10/29 though not documented onEEG. Last seizure occurred August 2022. Differential for breakthrough seizures include infection, metabolic derangement, intoxication, inadequate AED titration, ingestion vs new dx PNES. - CXR concerning for right-sided atelectasis versus developing infectious process. Low suspicion for PNA given no clinical signs. Likely atelectasis in the setting of reduced activity at home - Continue home AEDs - Lamictal 100 mg AM, 250 mg PM - Trileptal 150 mg daily - Zonegran 200 mg AM, 300 mg PM - Consulted Neurology, appreciate recs - Increase Lamotrigine to 150 mg QAM and 250 mg QPM - Continue Zonisamide 200 mg QAM and 300 mg QPM and Oxcarbazepine 150 mg QHS - start Folic Acid - Consider weaning Oxcarbazepine outpatient pending rEEG results - Outpatient rEEG - f/up in [facility] - Seizure precautions - Respiratory parameters q4h (NIF/VC) Hx of Myasthenia Gravis Diagnosed 2017. Last seen by [facility] neurom[facility] 10/06/2022. AChR ab+. She is status post thymectomy and Soliris.Treated with Ultomiris and port placed in 2021 for PLEX. Has missed 4 months of ultomiris due to insurance billing issues with local neurologist. Has been resumed 08/2022. Has had progressively worsening weakness. At last appointment advised to start Mestinon 30 mg TID. Tried this for 2 weeks which worsened headaches and did not improve weakness. 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 - Consulted PT/OT - OT recommending IPR at this time. Looking into placement at [facility]. - Consulted neurology - NIF/ VC once - f/up in [facility] Chronic conditions Anxiety - Continue home Lexapro 10 mg daily Lab/Electrolyte Abnormalities Hypokalemia- 3.3 (10/30)- repleted with 40mEq K-Dur Vitamin D level ordered Checklist: DVT Prophylaxis: on apixaban Dispo: pending evaluation and treatment. OT recommending Code Status: Full Code Diet: DIET REGULAR Discussed with team and attending, Dr. Adolfo Flores MD, on rounds. Signed, Kb Mitchell MD Anesthesiology, PGY-1 Pager ID: [phone] Physical Exam: Temp: [97.3 F (36.3 C)-98.4 F (36.9 C)] 98.2 F (36.8 C) Pulse (Heart Rate): [63-89] 87 Resp Rate: [14-16] 16 BP: (95-128)/(51-85) 105/51 O2 Sat (%): [96 %-99 %] 97 % O2 Device: room air (10/31/22 0548) Lines/Drains/Airways/Wounds: Patient Lines/Drains/Airways Status Active Lines, Drains, Airways, & Wound Overview Name Placement date Placement time Site Days Implanted Port - Single Lumen Port 10/16/20 infraclavicular fossa, right 10/16/20 -- -- 745 Gen: Alert, Awake, No Acute Distress Eyes: PERRLA, EOMI, no icterus ENT: MMM, trachea midline Resp: Clear to auscultation bilaterally, normal respiratory effort Cardio: Regular rate and rhythm, normal S1, S2, no M/R/G. No SRINIVASAN. GI: Soft, Non-tender, Non-distended, Normoactive Bowel Sounds MSK: No joint effusions or erythema: mild deconditioning Skin: No jaundice or rash Neuro: chicken sexer 3-7, 9-11 intact and equal. Strength grossly equal in muscle groups of the bilateral UEsand LEs. Psych: Ox3, appropriate affect and cognition, mildly anxious Body mass index is 31.48 kg/m . Data Review: CBC WBC/Hgb/Hct/Plts: 7.87/12.0/36.8/260 (11/01 3) Chem 7(PMC) Bun/Creat/Cl/CO2/Glucose: 11/0.64/108/20/84 (11/01 3) Na/K+/Phos/Mg/Ca: 139/4.0/--/1.9/-- (11/01 3) Coags Ptt/Pt/Inr: 36.3/15.2/1.2 (11/01 3) Imaging: XR CHEST PORTABLE Final Result IMPRESSION: Right lung volume is diminished with patchy right midlung opacities. Atelectasis or developing infection are considerations in the appropriate clinical setting. Medications: SCHEDULED: apixaban (ELIQUIS) tablet 5 mg, 5 mg, BID cholecalciferol (VITAMIN D3) tablet 2,000 Units, 2,000 Units, Daily Escitalopram (LEXAPRO) tablet 10 mg, 10 mg, QHS Folic acid (FOLVITE) tablet 1 mg, 1 mg, Daily lamoTRIgine (laMICtal) tablet 150 mg, 150 mg, Daily lamoTRIgine (laMICtal) tablet 250 mg, 250 mg, QHS OXcarbazepine (TRILEPTAL) tablet 150 mg, 150 mg, QHS zonisamide (ZONEGRAN) capsule 200 mg, 200 mg, Daily And zonisamide (ZONEGRAN) capsule 300 mg, 300 mg, QHS PRNs: Acetaminophen, 650 mg, Q6H PRN LORazepam, 0.5 mg, TID PRN Melatonin, 6 mg, QHS PRN Ondansetron 4mg/2ml, 4 mg, Q6H PRN Or Ondansetron, 4 mg, Q6H PRN Polyethylene glycol, 17 g, Daily PRN Sodium chloride 0.9%, 250 mL, PRN ALLERGIES: She is allergic to iodides, levetiracetam, phenytoin, prochlorperazine, shellfish-derived products, soybean oil, and penicillins. Home MEDS: Prior to Admission Medications Prescriptions Last Dose Informant Patient Reported? Taking? Escitalopram 10 MG tablet Yes No Sig: Take 1 tablet by mouth at bedtime. LORazepam 0.5 MG tablet Yes No Sig: Take 0.5-1 tablets by mouth 3 times daily as needed. LamoTRIgine 100 MG Tab SR 24 HR Yes No Sig: Take 1 tablet by mouth daily. LamoTRIgine 200 MG Tab SR 24 HR Yes No Sig: Take 1 tablet by mouth Every night. Levonorgestrel (Mirena, 52 MG,) 20 MCG/DAY Yes No Si Intra Uterine Device by Intrauterine route once. OXcarbazepine 150 MG tablet Yes No Sig: Take 1 tablet by mouth at bedtime. Ravulizumab-cwvz (Ultomiris) 300 MG/30ML Solution No No Si mL by Intravenous route every 56 days. Valtoco 10 MG Dose 10 MG/0.1ML Liquid Yes No Si mg by Nasal route as needed. apixaban 5 MG tablet Yes No Sig: Take 1 tablet by mouth 2 times daily. rOPINIRole 1 MG tablet Yes No Sig: Take 1.5 tablets by mouth Every night. zonisamide 100 MG capsule Yes No Sig: Take by mouth 2 times daily. 2 caps in the am , 3 caps at bedtime Facility-Administered Medications: None Associated attestation - Adolfo Flores MD - 10/31/2022 3:32 PM EDT Attending Attestation: I have personally seen and examined Doug Flanagan and I agree with the physical exam as stated below. I have personally reviewed all available clinical data related to today's encounter including, butnot limited to, radiology images and reports, laboratory data, and procedure reports. I have been fully involved in formulation of the assessment and plan and agree with the resident or BETTINA findings and plan of care as documented with any exceptions or additions noted below. [facility] referral sent, awaiting myositis panel. Vit D level and supplementation ordered per pt's mother's request. Signed, Adolfo Flores MD * Stephanie Rebolledo RN - 10/31/2022 11:16 AM EDT Discharge Planning Patient Assessment Admission Assessment Patient Assessment Completed: Focused Anticipated discharge disposition: Home Reason for Admission: concerns break through seizures and falls. Hx of MG Is the patient able to participate in the assessment?: No Explanation of why patient is unable to participate: slepy, diff to arousal Information source: Other (Genny Flanagan) Information Source Name/Contact: Genny Flanagan Demographics Verified and Updated: Yes Has the patient been admitted to any hospital in the last 30 days?: No Advanced Care Planning Has the patient completed Advance Directives?: Not Completed Legal Next of Kin Adult Child(roxy), List All Adult Children: (Minor child) Parent(s) - List All Living Parents: Yes Name and Contact information: Genny Flanagan Reviewed and Updated in Demographics? : Yes Outpatient Providers Does patient have a primary care physician? : Yes When was the patient's last PCP visit?: > 30 days Does the patient follow any specialists?: Yes Reviewed and updated Care Team?: Yes Patient Care Team: Donna Perdomo MD as PCP - General (Internal Medicine) Environment/Caregivers Is the patient from a facility or fci?: No Patient lives with: Alone Living Environment: House How many steps does the patient have to navigate to enter or inside the home? : 3 Does the patient have a first floor set-up with bed and bathroom?: Yes Patient Caregiving Responsibilities: Self Patient-identified caregiver/support network: Family Services Does the patient use a home health or hospice agency?: No Current with dialysis?: No Does the patient use any community programs or services?: No Does patient use DME? : walker Would you like to add additional DME providers?: No Does the patient use oxygen?: No Does patient use medical supplies? : none Anticipated Changes Related to Illness/Injury? : No Initial ADLs Prior to Arrival What is the patient's baseline physical functioning prior to this acute illness?: assist with ADLs What is the patient's baseline cognitive functioning prior to this acute illness?: assist with decision making, intermittent supervision Is the patient's baseline functioning changed by this acute illness? : Yes Changes observed : Physical, Cognitive Concerns with patient being able to care for themselves at home? : Yes Are there therapy or specialists consults?: Yes Select consult type: PT, OT Does the patient's home require any home modifications for discharge? : Unknown at this time CM to recommend therapy or other consults? : No Medication Management Does the patient have prescription insurance coverage? : Yes Is the patient on Anticoagulation? 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 : No Employed?: Disabled Coping/Stress Concerns about patient s coping and stress?: No Concerns about patient s caregiver s coping and stress?: Unable to Assess Values and Beliefs Cultural or hoahaoism practices that may impact discharge planning and/or medical care?: No Initial Discharge Planning Anticipated discharge disposition: Home Transportation Available for Discharge: None Anticipated DME: unknown at this time Anticipated Services at Discharge: DME Patient Assessment Completed: Focused Risk of Readmission: 2.4 Category Reference: High:16-100 Mod-High:10-16 Mod-Low: 5-10 Low: 0-5 Expected Discharge Date: 11/03/2022 Discharge Planning Summary The LNOK mother at the bedside. Discussed discharge planning with her. She verified patient lived alone with her Otitis child. The Parent retired, assist with their grandson. Patient also has hx of MG crisis. PT/OT rec's IPR, may improve. Will determine next of care closer to home. The mother preferred to see some medical improvement prior to making disposition plan. Anticipating plan of discharge into IPR vs outpatient setting. Will determine next level of care closer to discharge. Case Management Plan CM will follow up with the discharge planning and coordination. Stephanie ANGLIN, RN Clinical Record Tester [phone] * Lesly Smith RCP - 10/31/2022 9:02 AM EDT 10/31/22 0901 Resp Parameters Non-Vent $$ Resp Parameters Non-Vent yes RT Intervention Parameters Non Vent Patient Interface mouth piece Patient Position semi fowlers Vital Capacity (ml) (uanble to complete, equipment on back order) NIF -40 Resp Rate 16 * Ac Minaya RCP - 10/30/2022 1:47 PM EDT Equipment to obtain vital capacity is on back order. Will obtain when equipment is in * Ac Minaya RCP - 10/30/2022 1:45 PM EDT Pt rep Parameters. NIF = -40 * Kb Mitchell MD - 10/30/2022 12:57 PM EDT Internal Medicine Daily Progress Note Patient: Doug Flanagan, 1990, [id number] Physician: Kb Mitchell MD, Gen Med 7 service Subjective/Interval History: No acute events overnight. Endorses left sided pleuritic but reproducible pain, which she says recurs every time she is hospitalized. She worked with PT this morning. Her mother is at the bedside. Assessment/Plan: Doug Flanagan is a 32 y.o. female with history of myasthenia gravis (dx in 2018), epilepsy, and anxiety who presents for breakthrough seizures. Breakthrough seizures Patient with history of epilepsy now with breakthrough seizures x3 on 10/29 though not documented onEEG. Last seizure occurred August 2022. Differential for breakthrough seizures include infection, metabolic derangement, intoxication, inadequate AED titration, ingestion vs new dx PNES. - Infectious workup: - UA to be sent - CXR concerning for right-sided atelectasis versus developing infectious process. Low suspicion for PNA given no clinical signs. Likely atelectasis in the setting of reduced activity at home - UDS to be sent - Continue home AEDs - Lamictal 100 mg AM, 250 mg PM - Trileptal 150 mg daily - Zonegran 200 mg AM, 300 mg PM - Consulted Neurology, appreciate recs - Increase Lamotrigine to 150 mg QAM and 250 mg QPM - Continue Zonisamide 200 mg QAM and 300 mg QPM and Oxcarbazepine 150 mg QHS - start Folic Acid - Consider weaning Oxcarbazepine outpatient pending rEEG results - Outpatient rEEG - f/up in [facility] Ep[facility]psy [facility] - Seizure precautions - Respiratory parameters q4h (NIF/VC) Hx of Myasthenia Gravis Diagnosed 2017. Last seen by [facility] neuromuscular 10/06/2022. AChR ab+. She is status post thymectomy and Soliris.Treated with Ultomiris and port placed in 2021 for PLEX. Has missed 4 months of ultomiris due to insurance billing issues with local neurologist. Has been resumed 08/2022. Has had progressively worsening weakness. At last appointment advised to start Mestinon 30 mg TID. Tried this for 2 weeks which worsened headaches and did not improve weakness. 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 - Consulted PT/OT - OT recommending IPR at this time - Consulted neurology - NIF/ VC once - f/up in [facility] Neuromuscular clinic Chronic conditions Anxiety - Continue home Lexapro 10 mg daily Lab/Electrolyte Abnormalities Hypokalemia- 3.3 (10/30)- repleted with 40mEq K-Dur Checklist: DVT Prophylaxis: on apixaban Dispo: pending evaluation and treatment. OT recommending Code Status: Full Code Diet: DIET REGULAR Discussed with team and attending, Dr. Adolfo Flores MD, on rounds. Signed, Kb Mitchell MD Anesthesiology, PGY-1 Pager ID: [phone] Physical Exam: Temp: [97.8 F (36.6 C)-98.1 F (36.7 C)] 98.1 F (36.7 C) Pulse (Heart Rate): [64-80] 80 Resp Rate: [16] 16 BP: (105-113)/(56-70) 107/70 O2 Sat (%): [97 %-100 %] 97 % Weight: [80.6 kg (177 lb 11.1 oz)] 80.6 kg (177 lb 11.1 oz) O2 Device: room air (10/30/22 1133) Lines/Drains/Airways/Wounds: Patient Lines/Drains/Airways Status Active Lines, Drains, Airways, & Wound Overview Name Placement date Placement time Site Days Implanted Port - Single Lumen Port 10/16/20 infraclavicular fossa, right 10/16/20 -- -- 744 Fluid Management (24hrs): -Intake/Output last 3 shifts: No intake/output data recorded. Gen: Alert, Awake, No Acute Distress Eyes: PERRLA, EOMI, no icterus ENT: MMM, trachea midline Resp: Clear to auscultation bilaterally, normal respiratory effort Cardio: Regular rate and rhythm, normal S1, S2, no M/R/G. No SRINIVASAN. GI: Soft, Non-tender, Non-distended, Normoactive Bowel Sounds MSK: No joint effusions or erythema: mild deconditioning Skin: No jaundice or rash Neuro: chicken sexer 3-7, 9-11 intact and equal. Strength grossly equal in muscle groups of the bilateral UEsand LEs. Psych: Ox3, appropriate affect and cognition Body mass index is 31.48 kg/m . Data Review: CBC WBC/Hgb/Hct/Plts: 11.71/11.7/35.8/265 (06/30 0102) Chem 7([facility]) Bun/Creat/Cl/CO2/Glucose: 11/0.57/108/21/89 (10/30 101) Na/K+/Phos/Mg/Ca: 139/3.3/3.6/1.7/8.8 (10/30 101) Coags Ptt/Pt/Inr: 31.1/14.2/1.1 (10/30 101) Additional Labs No results found for: BNP No results found for: HSTROP No results found for: CHOLESTEROL, TRIG, HDL No results found for: ALT, AST, ALKPHOS, BILITOTAL, BILIDIRECT Imaging: XR CHEST PORTABLE Final Result IMPRESSION: Right lung volume is diminished with patchy right midlung opacities. Atelectasis or developing infection are considerations in the appropriate clinical setting. Medications: SCHEDULED: apixaban (ELIQUIS) tablet 5 mg, 5 mg, BID Escitalopram (LEXAPRO) tablet 10 mg, 10 mg, QHS lamoTRIgine (laMICtal) tablet 100 mg, 100 mg, Daily lamoTRIgine (laMICtal) tablet 250 mg, 250 mg, QHS OXcarbazepine (TRILEPTAL) tablet 150 mg, 150 mg, QHS rOPINIRole (REQUIP) tablet 1.5 mg, 1.5 mg, QHS zonisamide (ZONEGRAN) capsule 200 mg, 200 mg, Daily And zonisamide (ZONEGRAN) capsule 300 mg, 300 mg, QHS PRNs: Acetaminophen, 650 mg, Q6H PRN LORazepam, 0.5 mg, TID PRN Melatonin, 6 mg, QHS PRN Ondansetron 4mg/2ml, 4 mg, Q6H PRN Or Ondansetron, 4 mg, Q6H PRN Polyethylene glycol, 17 g, Daily PRN Sodium chloride 0.9%, 250 mL, PRN ALLERGIES: She is allergic to iodides, levetiracetam, phenytoin, prochlorperazine, shellfish-derived products, soybean oil, and penicillins. Home MEDS: Prior to Admission Medications Prescriptions Last Dose Informant Patient Reported? Taking? Escitalopram 10 MG tablet Yes No Sig: Take 1 tablet by mouth at bedtime. LORazepam 0.5 MG tablet Yes No Sig: Take 0.5-1 tablets by mouth 3 times daily as needed. LamoTRIgine 100 MG Tab SR 24 HR Yes No Sig: Take 1 tablet by mouth daily. LamoTRIgine 200 MG Tab SR 24 HR Yes No Sig: Take 1 tablet by mouth Every night. Levonorgestrel (Mirena, 52 MG,) 20 MCG/DAY Yes No Si Intra Uterine Device by Intrauterine route once. OXcarbazepine 150 MG tablet Yes No Sig: Take 1 tablet by mouth at bedtime. Ravulizumab-cwvz (Ultomiris) 300 MG/30ML Solution No No Si mL by Intravenous route every 56 days. Valtoco 10 MG Dose 10 MG/0.1ML Liquid Yes No Si mg by Nasal route as needed. apixaban 5 MG tablet Yes No Sig: Take 1 tablet by mouth 2 times daily. rOPINIRole 1 MG tablet Yes No Sig: Take 1.5 tablets by mouth Every night. zonisamide 100 MG capsule Yes No Sig: Take by mouth 2 times daily. 2 caps in the am , 3 caps at bedtime Facility-Administered Medications: None Associated attestation - Adolfo Flores MD - 10/30/2022 11:21 PM EDT See H&P attestation * Yudi Brown - 10/30/2022 8:23 AM EDT Acute Occupational Therapy Evaluation Prior to Admission AM-PAC Score: PRIOR LEVEL AM-PAC Activity Raw Score: 20 Current AM-PAC score(s): CURRENT AM-PAC Activity Raw Score: 14 Based on the above AM-PAC score(s) and OT clinical judgment, discharge destination recommendation is: Inpatient Rehab Facility Supporting Factors (would benefit from skilled therapy services): Patient status is anticipated to be appropriate to tolerate inpatient rehab therapy requirements at time of discharge from acute care, Impaired functional status, Decreased strength, Impaired balance, Decreased endurance, Impaired self-care abilities, Assistance needed with functional mobility, Fall risk, Recent decline in functional mobility, Recent decline in self-care abilities, Patient has appropriate assistance and setup at home for ultimate discharge to home once patient has progressed functionally following inpatient rehab Mobility equipment available at home: none used ADL equipment available at home: elevated toilet seat (In the process of purchasing a shower bench) Equipment recommendations for discharge: tub bench, 2 wheeled walker, bathing equipment, dressing equipment, feeding equipment Current therapy frequency recommendation(s) in acute: 5 times a week Precautions and Weightbearing Status: OT Existing Precautions/Restrictions: fall, seizure (Exit alarm) No critical lines at this time Patient Safety Communication Prior to Visit: Nursing Subjective: Pt agreeable to therapy and states I wish I could have my legs and arms back Pain: General Pain Documentation (Adult, OB, Peds) Presence of Pain: complains of pain/discomfort Pain Location: leg, left, flank, left (tongue, right thumb) DVPRS (Defense and Veterans Pain Rating Scale) DVPRS: Rest: 6- moderate pain Home Setting Residence: House Lives With: dependent child(roxy) (11 year old son) First floor setup: bedroom, tub shower Number of stairs to enter home: 5 with rail + 1 into home Number of stairs in home: 0 Mobility Equipment Available: none used ADL Equipment Available: elevated toilet seat (In the process of purchasing a shower bench) Home Environment Details: Pt reports that she lives with her son however her father/mother check into help often Previous Level of Function Prior level ADL Overview: Needs assist Dominant Hand: Right Bathing: needs assist Upper Body Dressing: independent Lower Body Dressing: needs assist Grooming: independent Toileting: needs assist Eating: needs assist Bed Mobility/Transfers: independent Ambulation Skills: independent Assistive Device: none used Level of Ambulation: household Prior Level of Function Details: Pt endorses about 15 recent falls in last 6 months that are not seizure related, stating that she feels like her legs just drop and she cannot use her leg muscles. Pt reports that she needs help donning/doffing pants and oftentimes has to call her son or parents to help her manage clothing. Pt reports that she struggles eating [facility] Pt reports that she is purchasing eating equipment. IADL History IADLs: needs assist Primary Language: [place] Islander IADL Comments: Pt reports that her parents help with IADLs tasks and that she does not drive. Objective/Observation: Vitals/Vitals Responses to Treatment: No adverse response to treatment. O2 Device: room air Vision Screen Currently wearing corrective lenses: No (Pt reports that she wears glasses at baseline) Subjective Patient Complaints: Double vision (present at baseline) Clinical Observations: Pt has jerky tracking. Speech Speech: no gross deficits noted Hearing Hearing: no gross deficits noted Cognition Overall Cognitive Status: Within Functional Limits Arousal/Alertness: Appropriate responses to stimuli Orientation Level: Oriented X4 Following Commands: Follows all commands and directions without difficulty Safety Judgment: Good awareness of safety precautions Awareness of Errors: Good awareness of errors made Deficits: Fully aware of deficits Attention Span: Appears intact Memory: Appears intact Problem Solving: Able to problem solve independently ADLs: ADL Anticipated Performance (ADLs not directly observed this session): Eating, Grooming, Bathing, UE Dressing, LE Dressing, Toileting Eating Assistance: Maximal Eating Location: chair Grooming Assistance: Minimal Grooming Location: seated at sink Bathing Assistance: Moderate Bathing Location: seated on shower chair UE Dressing Assistance: Minimal UE Dressing Location: edge of bed LE Dressing Assistance: Maximal LE Dressing Location: standing, edge of bed Toilet Assistance: Maximal Toileting Location: toilet Extremity Assessments: RUE Assessment RUE Assessment: Exceptions to WFL Right UE Assessment Details: ROM limited in shoulder flexion, achieving approximately 70 degrees. MMT 3+/5 throughout. Grasp weak and equal LUE Assessment LUE Assessment: Exceptions to WFL Left UE Assessment Details: ROM limited in shoulder flexion, achieving approximately 70 degrees. MMT 3+/5 throughout. Grasp weak and equal Balance: Sitting Balance Static Sitting-Level of Assistance: Standby Dynamic Sitting-Level of Assistance: Contact guard Skilled Rationale: Verbal cues, Tactile cues, Technique of activity, Cues for increased safety Sitting Balance Skilled Intervention/Details: Pt tolerated sitting EOB for approximately 10 minuteswith CGA during dynamic sitting due to retropulsive LOB. Standing Balance Static Standing-Level of Assistance: Contact guard Dynamic Standing-Level of Assistance: Minimum assistance Standing-Balance Support: Gait belt (Non skid socks) Skilled Rationale: Verbal cues, Tactile cues, Technique of activity, Cues for increased safety Standing Balance Skilled Intervention/Details: Pt tolerated standing for approximately 5 minutes with frequent LOB requiring min A to correct. Neuro: Sensation Sensation Comments: Light touch intact; pt reports that she has chills in her legs often Proprioception Proprioception: intact Fine Motor Coordination Additional Documentation: Yes Fine Motor Coordination Left Hand, Finger To Nose: mild impairment Right Hand, Finger To Nose: mild impairment Left Hand Thumb/Finger Opposition Skills: mild impairment Right Hand Thumb/Finger Opposition Skills: mild impairment Left Hand, Diadochokinesis Skills: normal performance Right Hand, Diadochokinesis Skills: normal performance Fine Motor Coordination Tests: Pt demonstrated decreased ability to oppose as a result of weakness.Pt demonstrated decreased accuracy when doing finger to nose. Skin and Edema: Skin Integrity Skin Integrity Description: WFL (WFL for all visible areas) Edema Edema: none noted Mobility Assessment: Supine to Sit Mobility Dooly Level: Supine->Sit: stand-by assist Bed Features/Set-up: Supine->Sit: Head of bed elevated, Use of bed rail Skilled Rationale: Technique of activity, Cues for increased safety Skilled Intervention/Details: Supine->Sit: Pt completed x 1 supine to sit with SBA to ensure balance maintenance throughout. Transfer Assessment: Sit to Stand Transfer Dooly Level: Sit->Stand: contact guard assist Assistive Device: Sit->Stand: gait belt (Non skid socks) Skilled Rationale: Tactile cues, Verbal cues, Technique of activity, Cues for increased safety Skilled Intervention/Details: Sit->Stand: Pt completed x 2 sit to stand from EOB with CGA to ensure balance maintenance as pt reports that she gets no warning before seizures/legs dropping. Stand to Sit Transfer Dooly Level: Stand->Sit: contact guard assist Assistive Device: Stand->Sit: gait belt (Non skid socks) Skilled Rationale: Hand placement, Verbal cues, Tactile cues, Technique of activity, Cues for increased safety Skilled Intervention/Details: Stand->Sit: Pt completed x 1 stand to sit to EOB and x 1 stand to sit to armed chair with CGA to maintain slowed descent. Functional Mobility: Functional Mobility [place]y Level: Functional Mobility/Gait: minimum assist (75% patient effort) (CGA-Min A) Assistive Device: Functional Mobility/Gait: gait belt (Non skid socks) Functional Mobility Distance: Distance needed for common household mobility Functional Mobility Deficits: Balance, Generalized weakness, Decreased step length Functional Mobility Skilled Rationale: Cues for increased safety, Hand placement, Tactile cues, Technique of activity, Facilitate postural control Skilled Intervention/Details - Functional Mobility/Gait: Pt ambulated with frequent LOB (some requiring therapist correction) and overall unsteadiness. Outcome Score(s): CURRENT [facility] Daily Activity Inpatient Short Form Putting on/Taking Off Lower Body Clothin - A Lot of Assistance Bathin - A Lot of Assistance Toiletin - A Lot of Assistance Putting on/Taking Off Upper Body Clothin - A Little Assistance Groomin - A Little Assistance Eatin - A Lot of Assistance CURRENT [facility] Activity Raw Score: 14 CURRENT [facility] Activity Functional Limitation/Modifier: 59.67% Currently Impaired in Daily Activity- CK Assessment & Plan: Patient was admitted for breakthrough seizures and seen for therapy evaluation related to I/ADL participation, functional balance, functional mobility, and fine motor coordination. Exam findings include impairments in: balance, coordination, endurance, joint integrity and mobility, motor function, ROM, sensation, strength, transfers, vision. These impairments contribute to occupational performance limitations including bathing, dressing, grooming, toileting, functional mobility, ADL transfers, work/school integration, community integration, leisure integration. The following factors impact the plan of care: Hx of epilepsy, MG, anxiety Psychosocial Factors Positive indicators for performance: Adequate support system, Positive interpersonal relationships,Active participation in community/group program Possible barriers for performance: Past medical history of psychosocial impairments Patient will benefit from skilled occupational therapy to address these impairments, occupational performance limitations, and participation restrictions. Patient's rehab potential is: good, to achieve stated therapy goals. Planned Therapy Interventions (OT Eval): ADL retraining, balance training, IADL retraining, functional activity tolerance, fine motor coordination training, ROM (range of motion), strengthening, transfer training, motor coordination training Patient Instruction/Education this session: Pt educated on the importance of EOB/OOB activities in improving independence in self-care/functional activity participation and on the role of OT/OT plan of care. Pt verbalized understanding. Plan for next session: Continue OT to address ADL participation using DME/AE (dressing, eating), ADL's in standing, and functional balance. Acute OT Goals Plan of Care by Madai Dumas OT at 10/30/2022 8:30 AM Version 1 of 1 Problem: OT - Dressing Goal: Upper Body Dressing Description: Pt will complete UE dressing task Edge of bed with independence for improved ability to complete self-care activities. Outcome: Ongoing Goal: Lower Body Dressing Description: Pt will complete LE dressing tasks with independence for improved ability to complete self-care activities. Outcome: Ongoing Problem: OT - Endurance Goal: Endurance Functional Mobilty Around Home Description: Pt will complete distance needed for common household mobility Supervision A Outcome: Ongoing Problem: OT - Strength/ROM Goal: Strength/ROM ADL Participation Description: Pt will demonstrate independence with UE exercise program to prevent deconditioning while in the hospital and to maximize UE ROM/coordination/strength for ADL participation. Outcome: Ongoing Problem: OT - Other Goal: Energy Conservation Task Recall Description: Pt will independently recall 4 energy conservation principles to increase functional activity tolerance during ADLs, IADLs, and mobility tasks. Outcome: Ongoing OT treatment consisted of the following to work and progress towards the above goal(s): OT Evaluation and Treatment Time OT Evaluation (Moderate) Time Entry: 31 Evaluating Therapist: MONIQUE Olvera Additional Details: Co-evaluation/co-treatment performed?: Yes, simultaneous billable skilled care This co-evaluation session performed between OT and PT was beneficial, necessary and provided distinct services in establishing this person's individual plan of care. Medical complexity with functional deficits necessitated two skilled therapy disciplines working concurrently to determine each discipline's goals. This co-treatment was medically necessary due to patient's: Coordination issues I used gloves and facemask in today's patient interaction. OT Evaluation Complexity Occupational Profile and Client History: Moderate - expanded history Assessment of Occupational Performance: Moderate (3-5 performance deficits) Clinical Decision/Performance Deficits: Moderate (detailed assessments w/several treatment options) Time In: 751 Time Out: 822 Total Visit Time: 31 minutes Total Treatment Time (skilled, billable minutes): 31 minutes Patient location at end of session: chair and RN aware Alarms on at end of session: chair alarm Needs in reach. Upon discontinuation of Acute Care Occupational Therapy Services or patient discharge from the hospital this note represents the current Occupational Therapy Discharge Summary. Associated attestation - Madai Dumas OT - 10/30/2022 11:58 AM EDT I, Madai Dumas OT, provided direct guidance in the room during this patient care session. I attest that all documentation reflects accurate skilled clinical decisions and judgements. * Juliana Thrasher, PT - 10/30/2022 7:53 AM EDT Acute Physical Therapy Evaluation Prior to Admission [facility] score(s): PRIOR LEVEL AM-PAC Mobility Raw Score: 23 Current AM-PAC score(s): CURRENT AM-PAC Mobility Raw Score: 16 Based on the above AM-PAC score(s) and PT clinical judgment, patient is a good candidate for discharge to Inpatient Rehab Facility Supporting Factors (would benefit from skilled therapy services): Fall risk, Impaired balance Mobility equipment available at home: none used ADL equipment available at home: elevated toilet seat (In the process of purchasing a shower bench) Equipment needed for discharge: to be determined Current therapy frequency recommendation in acute: Therapy Frequency: 5 times a week Precautions and Weightbearing Status: Existing Precautions/Restrictions: fall, seizure No critical lines at this time Patient Safety Communication Prior to Visit: Nursing Subjective: Pt agreed to PT Pain: General Pain Documentation (Adult, OB, Peds) Presence of Pain: complains of pain/discomfort Pain Location: leg, left, flank, left (tongue, right thumb) DVPRS (Defense and Veterans Pain Rating Scale) DVPRS: Rest: 6- moderate pain DVPRS: Activity: 6- moderate pain Home Setting Residence: House Lives With: dependent child(roxy) (11 year old son) First floor setup: bedroom, tub shower Number of stairs to enter home: 5 with rail + 1 into home Number of stairs in home: 0 Mobility Equipment Available: none used ADL Equipment Available: elevated toilet seat (In the process of purchasing a shower bench) Home Environment Details: Pt reports that she lives with her son however her father/mother check into help often Previous Level of Function Prior level ADL Overview: Needs assist Dominant Hand: Right Bathing: needs assist Upper Body Dressing: independent Lower Body Dressing: needs assist Grooming: independent Toileting: needs assist Eating: needs assist Bed Mobility/Transfers: independent Ambulation Skills: independent Assistive Device: none used Level of Ambulation: household Prior Level of Function Details: Pt endorses about 15 recent falls in last 6 months that are not seizure related, stating that she feels like her legs just drop and she cannot use her leg muscles. Pt reports that she needs help donning/doffing pants and oftentimes has to call her son or parents to help her manage clothing. Pt reports that she struggles eating as she cannot bring her hand to [facility]. Pt reports that she is purchasing eating equipment. Objective/Observation: Vitals/Vitals Responses to Treatment: no adverse response to PT O2 Device: room air Cognition Overall Cognitive Status: Within Functional Limits Arousal/Alertness: Appropriate responses to stimuli Orientation Level: Oriented X4 Following Commands: Follows all commands and directions without difficulty Safety Judgment: Good awareness of safety precautions Awareness of Errors: Good awareness of errors made Deficits: Fully aware of deficits Vision Screen Currently wearing corrective lenses: No Subjective Patient Complaints: Double vision (since yesterday) Speech Speech: no gross deficits noted Hearing Hearing: no gross deficits noted Extremity Assessments: RLE Assessment Right LE Assessment Details: strength: 2/5 hip flexion, 4-/5 knee extension, 4- /5 ankle dorsiflexion LLE Assessment Left LE Assessment Details: strength: 2/5 hip flexion, 4-/5 knee extension, 4-/5 ankle dorsiflexion Sensation Sensation Comments: per pt: chills in my legs for past week or two Mobility Assessment: Supine to Sit Mobility [place] Level: Supine->Sit: stand-by assist Bed Features/Set-up: Supine->Sit: Head of bed elevated, Use of bed rail Skilled Rationale: Verbal cues, Tactile cues, Hand placement, Technique of activity Balance: Sitting Balance Static Sitting-Level of Assistance: Standby Standing Balance Static Standing-Level of Assistance: Contact guard Standing-Balance Support: Gait belt Transfer Assessment: Sit to Stand Transfer D[place]y Level: Sit->Stand: contact guard assist Assistive Device: Sit->Stand: gait belt Skilled Rationale: Verbal cues, Tactile cues, Hand placement, Technique of activity Stand to Sit Transfer D[place]y Level: Stand->Sit: contact guard assist Assistive Device: Stand->Sit: gait belt Skilled Rationale: Verbal cues, Tactile cues, Hand placement, Technique of activity Gait/Functional Mobility: Gait Assessment D[place]y Level: Gait: (CGA to min A) Assistive Device: Gait: gait belt Ambulation Distance (Feet): 120 Gait Deviations Identified: decreased xuan, decreased gait speed, decreased heel strike, decreased step length, decreased stride length Gait Skilled Rationale: verbal, tactile, upright posture, increase step length, increase foot clearance Skilled Intervention/Details - Gait: Pt fluctuated between CGA and min A. Outcome Score(s): CURRENT [facility] Basic Mobility Inpatient Short Form Turning over in bed: 3 - A Little Assistance Sitting/standing from chair: 3 - A Little Assistance Moving from lying on back to sittin - A Little Assistance Moving to and from bed to chair: 3 - A Little Assistance Walk in hospital room: 3 - A Little Assistance Climbing 3-5 steps with a railin - Total Assistance CURRENT [facility] Mobility Raw Score: 16 CURRENT [facility] Mobility Functional Limitation/Modifier: 54.16% Currently Impaired in Basic Mobility- CK Assessment & Plan: Patient was admitted for 32 y.o. female with history of myasthenia gravis (dx in 2018), epilepsy, and anxiety who presents for breakthrough seizures (per chart review) and seen for therapy evaluation related to mobility concerns. Exam findings include impairments in: Strength, Balance, Posture, Transfers, Gait/Locomotion, Cognition/Arousal/Attention, Aerobic capacity/endurance. These impairments contribute to functional limitations including Difficulty with transfers, Difficulty with bed mobility, Decreased functional mobility. Current clinical presentation is Evolving - changing/inconsistent clinical characteristics (Moderate). Patient history factors impacting Plan Of Care include . Patient will benefit from skilled physical therapy to address these impairments, functional limitations, and participation restrictions andhas good rehab potential to achieve therapy goals. Planned Therapy Interventions: balance training, bed mobility training, endurance, functional activity tolerance, gait training, neuromuscular re- education, strengthening, transfer training, posturalre-education Patient Instruction/Education this session: plan for PT session Plan for next session: progress transfers, gait, balance Acute PT Goals Plan of Care by Juliana Thrasher PT at 10/30/2022 2:30 PM Version 1 of 1 Problem: PT - Balance/Coordination/Neuro Re-Education Goal: Standing Dynamic/Static Balance Description: Pt will perform standing balance tasks for 10 minutes with standby assistance with outan assistive device in order to improve functional mobility and safety with standing tasks. Outcome: Ongoing Problem: PT - Mobility Goal: Ambulation Description: Pt will ambulate 150 feet with out an assistive device with supervision to improve ability to navigate home environment. Outcome: Ongoing Goal: Stairs Description: Pt will ascend/descend 5 stairs with 1 railings with supervision with out an assistivedevice to improve ability to perform functional mobility necessary in recommended discharge environment. Outcome: Ongoing Problem: PT - Transfers Goal: Supine <-> Sit Description: Pt will perform bed mobility with flat bed & no rail with modified independence inorder to improve functional mobility and safety. Outcome: Ongoing Goal: Sit <-> Stand Description: Pt will perform sit to/from stand transfers with supervision with out an assistive device in order to improve functional mobility and safety. Outcome: Ongoing PT treatment consisted of the following to progress towards the above goal(s): PT Evaluation and Treatment Time PT Evaluation (Moderate) Time Entry: 29 Evaluating Therapist: Juliana Thrasher PT Additional Details: Co-evaluation/co-treatment performed?: Yes, simultaneous billable skilled care This co-evaluation session performed between PT and OT was beneficial, necessary and provided distinct services in establishing this person's individual plan of care. Medical complexity with functional deficits necessitated two skilled therapy disciplines working concurrently to determine each discipline's goals. This co-treatment was medically necessary due to patient's: Postural control I used gloves and facemask in today's patient interaction. Evaluation Complexity Components History: Moderate (1-2 personal factors and/or comorbidities) Body Systems Review: Moderate (Addressing a total of 3 or more elements) Clinical Presentation: Evolving - changing/inconsistent clinical characteristics (Moderate) Clinical Decision Making: Moderate Time In: 0753 Time Out: 821 Total Visit Time: 29 minutes Total Treatment Time (skilled, billable minutes): 29 minutes Patient location at end of session: chair Alarms on at end of session: RN aware Needs in reach. Upon discontinuation of Acute Care Physical Therapy Services or patient discharge from the hospitalthis note represents the current Physical Therapy Discharge Summary. [facility]* Nursing Notes - Odalis Gomez RN - 11/02/2022 2:01 PM EDT AVS printed off and discharge instructions reviewed with the patient; RN discussed meds and f/up appointments; port de-accessed (line heparinized); pt to discharge home with all belongings Odalis Gomez RN [facility]07-03-2023 Miscellaneous Notes* Nursing Notes - Odalis Gomez RN - 11/02/2022 2:01 PM EDT AVS printed off and discharge instructions reviewed with the patient; RN discussed meds and f/up appointments; port de-accessed (line heparinized); pt to discharge home with all belongings Odalis Gomez RN * Nursing Notes - Odalis Gomez RN - 11/02/2022 1:35 PM EDT Resident called back and said he would make the necessary changes for her lamictal and would message when he got it fixed GM7 resident paged asking for someone to call RN regarding meds to discharge on Odalis Gomez RN * Plan of Care - Madai Dumas OT - 11/02/2022 12:00 PM EDT Problem: OT - Dressing Goal: Upper Body Dressing Description: Pt will complete UE dressing task Edge of bed with independence for improved ability to complete self-care activities. Outcome: Adequate for Discharge Goal: Lower Body Dressing Description: Pt will complete LE dressing tasks with independence for improved ability to complete self-care activities. Outcome: Adequate for Discharge Problem: OT - Endurance Goal: Endurance Functional Mobilty Around Home Description: Pt will complete distance needed for common household mobility Supervision A Outcome: Adequate for Discharge Problem: OT - Strength/ROM Goal: Strength/ROM ADL Participation Description: Pt will demonstrate independence with UE exercise program to prevent deconditioning while in the hospital and to maximize UE ROM/coordination/strength for ADL participation. Outcome: Adequate for Discharge Problem: OT - Other Goal: Energy Conservation Task Recall Description: Pt will independently recall 4 energy conservation principles to increase functional activity tolerance during ADLs, IADLs, and mobility tasks. Outcome: Adequate for Discharge * Plan of Care - Efrain Quesada PT - 11/02/2022 9:52 AM EDT Problem: PT - Balance/Coordination/Neuro Re-Education Goal: Standing Dynamic/Static Balance Description: Pt will perform standing balance tasks for 10 minutes with standby assistance with outan assistive device in order to improve functional mobility and safety with standing tasks. Outcome: Progressing Toward Goal Problem: PT - Mobility Goal: Ambulation Description: Pt will ambulate 150 feet with out an assistive device with supervision to improve ability to navigate home environment. Outcome: Progressing Toward Goal Goal: Stairs Description: Pt will ascend/descend 5 stairs with 1 railings with supervision with out an assistivedevice to improve ability to perform functional mobility necessary in recommended discharge environment. Outcome: Progressing Toward Goal Problem: PT - Transfers Goal: Supine <-> Sit Description: Pt will perform bed mobility with flat bed & no rail with modified independence inorder to improve functional mobility and safety. Outcome: Met This Shift Goal: Sit <-> Stand Description: Pt will perform sit to/from stand transfers with supervision with out an assistive device in order to improve functional mobility and safety. Outcome: Progressing Toward Goal * Plan of Care - Juaniot Mirza RN - 11/02/2022 3:03 AM EDT Problem: Patient Care Overview Goal: Plan of Care Review Outcome: Ongoing Goal: Individualization & Mutuality Outcome: Ongoing Goal: Discharge Needs Assessment Outcome: Ongoing Goal: Interdisciplinary Rounds/Family Conf Outcome: Ongoing * Plan of Care - Gina Rodríguez RN - 11/01/2022 8:02 PM EDT Problem: Patient Care Overview Goal: Plan of Care Review Outcome: Ongoing Goal: Individualization & Mutuality Outcome: Ongoing Goal: Discharge Needs Assessment Outcome: Ongoing Goal: Interdisciplinary Rounds/Family Conf Outcome: Ongoing * Plan of Care - Gina Rodríguez RN - 10/31/2022 6:56 PM EDT Problem: Patient Care Overview Goal: Plan of Care Review Outcome: Ongoing Goal: Individualization & Mutuality Outcome: Ongoing Goal: Discharge Needs Assessment Outcome: Ongoing Goal: Interdisciplinary Rounds/Family Conf Outcome: Ongoing * Certification - Hill Baker MD - 10/30/2022 8:07 PM EDT I certify that this patient requires inpatient services at this time. I anticipate the expected length of stay will include at least two midnights. Inpatient services are due to the following medicalconcerns break through seizures and falls. Plans for post hospitalization care will be discharge to inpatient rehab facility. Hill Baker MD Internal Medicine, PG-2 * Nursing Notes - Madai Montaño RN - 10/30/2022 5:57 PM EDT Rin Frankel MD: [id number] Flanagan: This patient has tuberculosis labs sent down today. If we're testing for TB then they need to be placed in airborne precautions until ruled out. Please place orders.Thanks! -Madai [id number] Madai Montaño RN * Plan of Care - Juliana Thrasher, FÉLIX - 10/30/2022 2:30 PM EDT Problem: PT - Balance/Coordination/Neuro Re-Education Goal: Standing Dynamic/Static Balance Description: Pt will perform standing balance tasks for 10 minutes with standby assistance with outan assistive device in order to improve functional mobility and safety with standing tasks. Outcome: Ongoing Problem: PT - Mobility Goal: Ambulation Description: Pt will ambulate 150 feet with out an assistive device with supervision to improve ability to navigate home environment. Outcome: Ongoing Goal: Stairs Description: Pt will ascend/descend 5 stairs with 1 railings with supervision with out an assistivedevice to improve ability to perform functional mobility necessary in recommended discharge environment. Outcome: Ongoing Problem: PT - Transfers Goal: Supine <-> Sit Description: Pt will perform bed mobility with flat bed & no rail with modified independence inorder to improve functional mobility and safety. Outcome: Ongoing Goal: Sit <-> Stand Description: Pt will perform sit to/from stand transfers with supervision with out an assistive device in order to improve functional mobility and safety. Outcome: Ongoing * Plan of Care - Madai Dumas OT - 10/30/2022 8:30 AM EDT Problem: OT - Dressing Goal: Upper Body Dressing Description: Pt will complete UE dressing task Edge of bed with independence for improved ability to complete self-care activities. Outcome: Ongoing Goal: Lower Body Dressing Description: Pt will complete LE dressing tasks with independence for improved ability to complete self-care activities. Outcome: Ongoing Problem: OT - Endurance Goal: Endurance Functional Mobilty Around Home Description: Pt will complete distance needed for common household mobility Supervision A Outcome: Ongoing Problem: OT - Strength/ROM Goal: Strength/ROM ADL Participation Description: Pt will demonstrate independence with UE exercise program to prevent deconditioning while in the hospital and to maximize UE ROM/coordination/strength for ADL participation. Outcome: Ongoing Problem: OT - Other Goal: Energy Conservation Task Recall Description: Pt will independently recall 4 energy conservation principles to increase functional activity tolerance during ADLs, IADLs, and mobility tasks. Outcome: Ongoing * Medical Student - Waleska Turpin - 10/30/2022 7:43 AM EDT Images from the original note were not included. Inpatient Neurology Consultation Note Physician: Waleska Turpin, MS3 Patient: Doug Flanagan, 1990, [id number] ADMIT DATE: 10/29/2022 Date of face to face patient encounter: 10/30/2022 Requesting Provider Adolfo Flores MD Reason for Consultation 32 yo F with hx of seizures and MG on Ultomiris. Can you assist with titration of AEDs and starting EEG? 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 Yesterday, she lost consciousness and fell while watering plants. She does not recall the event or any inciting factors, but her father reported no jerking prior. She returned to baseline immediately. She reports frequent falling with muscle weakness and standing which requires help from her parents to shower. About 20 minutes later while sitting in a recliner, she felt a seizure coming on with generalized tremulousness and palpitations. She called for her father to bring her rescue intranasal diazepam, then lost consciousness and had full body shaking and stiffening for 2-3 minutes, associated with cyanosis, tongue biting, and urinary incontinence. A state of agitation and combativeness followed for 3- 4 minutes, and resulted in a large bruise on her left leg. Then, she came to and reported hours of confusion and fatigue. She then was transported to the ED via EMS where she had a similar episode.She was treated with ativan and reports that the episode resolved with a sternal rub. Pt reports adherence to her medications. Reports palpitations and chills on her lower limbs for multiple days, but no fever, cough, diarrhea, abdominal pain. Endorses SOB at rest and exertion, musclesoreness/weakness, and dysphagia while chewing food. Patient reported some sleep deprivation the evening prior to seizures. Seizure History: Her first seizure was at age 11 but reports episodes of staring at ages 11-12. Last seizure occurred 07/2022 following plasma exchange treatment for Myasthenia Gravis. Typically has no aura with seizures. No history of EGG TRAYER infection. Risk factors include family history of an aunt with a seizure disorder and a fall with loss of consciousness in 5th grade. -Home AED medications: lamotrigine 100 mg QAM, 250 QPM, oxcarbazepine 150 mg at bedtime, [id number] mg daily and 300 mg at bedtime. Myasthenia Gravis Diagnosed 2017. Last seen by [facility] 10/06/2022. AChR ab+. She is status post thymectomy and Soliris.Treated with Ultomiris and port placed in 2021 for PLEX. Has missed 4 months of ultomiris due to insurance billing issues with local neurologist. Has been resumed 08/2022. Has had progressively worsening weakness. At last appointment advised to start Mestinon 30 mg TID. Tried this for 2 weeks which worsened headaches and did not improve weakness. 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 Today, she reports vertical dipoplia, muscle weakness, choking on solid food, and SOB at rest and on exertion. Last Medical and Surgical History: Past Medical History: Diagnosis Date Abnormal Pap smear of cervix 10/06/2022 Bleeding disorder 2020 Blood clot in RUE due to mediport. 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 Other constipation 10/06/2022 Restless legs 10/06/2022 Seizure 2002 Tension-type headache, not intractable 10/06/2022 Past Surgical History: Procedure Laterality Date INSERTION CVC TUNNELED W/ PORT PUMP Right 10/16/2020 R IJ powerport placed by Dr Tevin Malcolm APPENDECTOMY ARTHROSCOPY HIP W/ LABRAL REPAIR Right REPLACEMENT CENTRAL VENOUS ACCESS DEVICE W/ PORT PUMP Right THYMECTOMY 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 Medications: Current Scheduled Medications: apixaban (ELIQUIS) tablet 5 mg, 5 mg, BID Escitalopram (LEXAPRO) tablet 10 mg, 10 mg, QHS lamoTRIgine (laMICtal) tablet 100 mg, 100 mg, Daily lamoTRIgine (laMICtal) tablet 250 mg, 250 mg, QHS OXcarbazepine (TRILEPTAL) tablet 150 mg, 150 mg, QHS rOPINIRole (REQUIP) tablet 1.5 mg, 1.5 mg, QHS zonisamide (ZONEGRAN) capsule 200 mg, 200 mg, Daily And zonisamide (ZONEGRAN) capsule 300 mg, 300 mg, QHS Current PRN Medications: Acetaminophen, 650 mg, Q6H PRN LORazepam, 0.5 mg, TID PRN Melatonin, 6 mg, QHS PRN Ondansetron 4mg/2ml, 4 mg, Q6H PRN Or Ondansetron, 4 mg, Q6H PRN Polyethylene glycol, 17 g, Daily PRN Sodium chloride 0.9%, 250 mL, PRN Allergies: Allergies Allergen Reactions Iodides Pt states she can have a seizure with sea food but has had CT with dye without any problem on numerous occasions Levetiracetam Hallucination Gait instability Hallucinations, suicidal thoughts Phenytoin Other reaction(s): Mental Status Change, Other I go crazy Suicidal Gait instability, n/v Hallucination, vomiting Prochlorperazine Other reaction(s): Intolerance, Other Severe agitation Shellfish-Derived Products Other reaction(s): Other Seizures Seizures, but not IV with contrast Soybean Oil Other reaction(s): Other: See Comments Penicillins Hives and Rash rash Review of Systems: ROS as mentioned in HPI. Physical Exam: Temp: [97.8 F (36.6 C)-98 F (36.7 C)] 97.9 F (36.6 C) Pulse (Heart Rate): [64-78] 72 Resp Rate: [16] 16 BP: (105-113)/(56-67) 113/56 O2 Sat (%): [97 %-100 %] 100 % Weight: [80.6 kg (177 lb 11.1 oz)] 80.6 kg (177 lb 11.1 oz) O2 Device: room air (10/30/22 0729) Body mass index is 31.48 kg/m . Gen: NAD, alert, conversant, HENT: NCAT, normal external appearance of ears and nose Cardio: RR Resp: no increased WOB Ext: warm and well-perfused, no LE edema Skin: No rash, contusion on left proximal leg Neuro: alert and oriented, moving all four extremities Psych: Good eye contact, normal affect, judgment and insight intact to history taking, normal speech and content Neurological Examination Mental status: awake and alert, oriented to person, place, year, and situation. Normal mood and affect. Speech/language: fluent; comprehension intact Cranial nerves: CN II: Visual moore intact to confrontation. PERRL. Normal conjunctivae and lids. chicken sexer III, IV and : extraocular movements intact. No fatigable weakness with upgaze. No nystagmus. Mild eye closure weakness. Double vision and increased pain with upgaze. CN V: Facial sensation is intact to light touch. CN VII: mild b/l facial weakness CN VIII: Hearing is grossly intact. CN IX and X: Soft palate elevates symmetrically in the midline CN XII: Tongue is midline with normal movement; no fasciculations. Motor: Normal bulk and tone. SA EE EF WE WF DI HF KE KF DF PF Right 4+ 4+ 4+ 4+ 4+ 4+ 3 5 4 5 5 Left 4- 4 4 4 4 4 3 4+ 4- 5 5 Reflexes: Right Left Comments Biceps 2 2 Triceps Brachioradialis 2 2 Patellar 2+ 2+ Achilles 2 2 clonus Zamudio Babinski Down Down Coordination: [id number] intact bilaterally. Finger tapping intact. Sensation: Comments Light touch Intact throughout Pin prick Temperature Vibration Mildly diminished at b/l great toes Proprioception Gait: Increased effort with moving from sitting to standing with bilateral arm assistance. Unable to move from sitting to standing without assistance. Normal stride length and balance. Data Review: CBC: Lab Results Component Value Date WBC 11.71 (H) 10/30/2022 HGB 11.7 10/30/2022 HCT 35.8 10/30/2022 PLATELET 265 10/30/2022 MCV 82.3 10/30/2022 Chem: Lab Results Component Value Date SODIUM 139 10/30/2022 POTASSIUM 3.3 (L) 10/30/2022 CHLORIDE 108 10/30/2022 CO2 21 10/30/2022 BUN 11 10/30/2022 CREATSERUM 0.57 10/30/2022 GLUCOSE 89 10/30/2022 Coags: Ptt/Pt/Inr: 31.1/14.2/1.1 (10/30 010) Micro: No results found for: CULTURE Imaging / Procedures: Chest Xray (10/20/22): Right lung volume diminished with patchy mid lung opacities. Atelectasis or developing infection are considerations in the appropriate clinical setting. MRI Brain w/w/o contrast (08/01/22): Normal MRI of the brain with and without contrast. MRI C-spine w/w/o contrast (08/01/22): 1. Normal appearance of the cervical and thoracic spinal cord. Negative study. 2. Incidental 9 mm osseous lesion in the parasymphysis of the left hemimandible which is most likely a odontogenic inflammatory lesion but otherwise not characterized on this exam. 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 Yesterday, she lost consciousness and fell while watering plants. She does not recall the event or any inciting factors, but her father reported no jerking prior. She returned to baseline immediately. She reports frequent falling with muscle weakness and standing which requires help from her parents to shower. About 20 minutes later while sitting in a recliner, she felt a seizure coming on with generalized tremulousness and palpitations. She called for her father to bring her rescue intranasal diazepam, then lost consciousness and had full body shaking and stiffening for 2-3 minutes, associated with cyanosis, tongue biting, and urinary incontinence. A state of agitation and combativeness followed for 3- 4 minutes, and resulted in a large bruise on her left leg. Then, she came to and reported hours of confusion and fatigue. 1. Intractable generalized epilepsy: Differential includes intractable epilepsy due to inadequate AED titration and provoked by sleep deprivation. Description of events with associated tongue biting, urinary incontinence, and cyanosis and history of EEG generalized discharges support epileptic nature of event. The event was likely triggered by sleep deprivation and possible infectious cause due to CXR. Breakthrough seizures while on2 therapeutic doses of ASD is concerning for medication refractory epilepsy. Other considerations include infectious cause due to CXR with patchy opacities. Less likely due to negative URI and GI symptoms, besides weakness and chills, and SOB. UA results pending. Also considered metabolic derangement, but less likely due to labs within normal limits. Intoxication also considered, UDS pending. Recommend patient to f/u outpatient for seizure classification. If EEG findings support a generalized seizure, then Trileptal could be worsening symptoms of seizures. 2. Proximal weakness Proximal weakness on exam concerning for etiology other than known Myasthenia Gravis. On exam, ptosis, facial weakness,and difficulty swallowing and positive AChR antibodies suggest Myasthenia symptoms worsening. Proximal weakness concerning for possible myopathy or myositis. Recommend CK to rule out any other cause for weakness. Follow up outpatient to manage Myasthenia. Chronic Conditions: -Anxiety: continue home lexapro 10 mg daily Recommendations Diagnostic Workup: 1. rEEG 2. CK labs 3. NIF/VC monitoring Medications: 1. Increase lamotrigine to 150 qAM and 250 qPM 2. Continue Oxcarbazepine 150 qd and zonegram 200 qAM and 300 qPM 3. Consider weaning carbamazepine outpatient pending rEEG results 4. Start folic acid to prevent AED complications Non-pharmacological: 1. Outpatient EEG 2. Seizure precautions Consultations/Referrals/Follow-Up: 1. F/u with outpatient neuromuscular clinic 2. F/u with outpatient epilepsy clinic for potential seizure monitoring and classification Discussed with Dr. Conway, attending physician. Waleska Turpin, MS3 * Plan of Care - Juanito Mirza RN - 10/30/2022 2:27 AM EDT Problem: Patient Care Overview Goal: Plan of Care Review Outcome: Ongoing Goal: Individualization & Mutuality Outcome: Ongoing Goal: Discharge Needs Assessment Outcome: Ongoing Goal: Interdisciplinary Rounds/Family Conf Outcome: Ongoing * Nursing Notes - Juanito Mirza RN - 10/30/2022 12:23 AM EDT On admission to [facility], from [facility] a dual RN initial assessment of skin condition was performed by VANESSA Morrow and Pooja MENDEZ. Skin Assessment: WDL LDA Added:Tc Mirza RN * Nursing Notes - Juanito Mirza RN - 10/29/2022 10:43 PM EDT Industrial Spraypainter paged Gen [facility] 7 for orders and to come see patient. [facility] M[facility] Notes* Nursing Notes - Odalis Gomez RN - 11/02/2022 2:01 PM EDT AVS printed off and discharge instructions reviewed with the patient; RN discussed meds and f/up appointments; port de-accessed (line heparinized); pt to discharge home with all belongings Odalis Gomez RN * Nursing Notes - Odalis Gomez RN - 11/02/2022 1:35 PM EDT Resident called back and said he would make the necessary changes for her lamictal and would message when he got it fixed GM7 resident paged asking for someone to call RN regarding meds to discharge on Odalis Gomze RN * Plan of Care - Madai Dumas OT - 11/02/2022 12:00 PM EDT Problem: OT - Dressing Goal: Upper Body Dressing Description: Pt will complete UE dressing task Edge of bed with independence for improved ability to complete self-care activities. Outcome: Adequate for Discharge Goal: Lower Body Dressing Description: Pt will complete LE dressing tasks with independence for improved ability to complete self-care activities. Outcome: Adequate for Discharge Problem: OT - Endurance Goal: Endurance Functional Mobilty Around Home Description: Pt will complete distance needed for common household mobility Supervision A Outcome: Adequate for Discharge Problem: OT - Strength/ROM Goal: Strength/ROM ADL Participation Description: Pt will demonstrate independence with UE exercise program to prevent deconditioning while in the hospital and to maximize UE ROM/coordination/strength for ADL participation. Outcome: Adequate for Discharge Problem: OT - Other Goal: Energy Conservation Task Recall Description: Pt will independently recall 4 energy conservation principles to increase functional activity tolerance during ADLs, IADLs, and mobility tasks. Outcome: Adequate for Discharge * Plan of Care - Efrain Quesada PT - 11/02/2022 9:52 AM EDT Problem: PT - Balance/Coordination/Neuro Re-Education Goal: Standing Dynamic/Static Balance Description: Pt will perform standing balance tasks for 10 minutes with standby assistance with outan assistive device in order to improve functional mobility and safety with standing tasks. Outcome: Progressing Toward Goal Problem: PT - Mobility Goal: Ambulation Description: Pt will ambulate 150 feet with out an assistive device with supervision to improve ability to navigate home environment. Outcome: Progressing Toward Goal Goal: Stairs Description: Pt will ascend/descend 5 stairs with 1 railings with supervision with out an assistivedevice to improve ability to perform functional mobility necessary in recommended discharge environment. Outcome: Progressing Toward Goal Problem: PT - Transfers Goal: Supine <-> Sit Description: Pt will perform bed mobility with flat bed & no rail with modified independence inorder to improve functional mobility and safety. Outcome: Met This Shift Goal: Sit <-> Stand Description: Pt will perform sit to/from stand transfers with supervision with out an assistive device in order to improve functional mobility and safety. Outcome: Progressing Toward Goal * Plan of Care - Juanito Mirza RN - 11/02/2022 3:03 AM EDT Problem: Patient Care Overview Goal: Plan of Care Review Outcome: Ongoing Goal: Individualization & Mutuality Outcome: Ongoing Goal: Discharge Needs Assessment Outcome: Ongoing Goal: Interdisciplinary Rounds/Family Conf Outcome: Ongoing * Plan of Care - Gina Rodríguez RN - 11/01/2022 8:02 PM EDT Problem: Patient Care Overview Goal: Plan of Care Review Outcome: Ongoing Goal: Individualization & Mutuality Outcome: Ongoing Goal: Discharge Needs Assessment Outcome: Ongoing Goal: Interdisciplinary Rounds/Family Conf Outcome: Ongoing * Plan of Care - Gina Rodríguez RN - 10/31/2022 6:56 PM EDT Problem: Patient Care Overview Goal: Plan of Care Review Outcome: Ongoing Goal: Individualization & Mutuality Outcome: Ongoing Goal: Discharge Needs Assessment Outcome: Ongoing Goal: Interdisciplinary Rounds/Family Conf Outcome: Ongoing * Certification - Hill Baker MD - 10/30/2022 8:07 PM EDT I certify that this patient requires inpatient services at this time. I anticipate the expected length of stay will include at least two midnights. Inpatient services are due to the following medicalconcerns break through seizures and falls. Plans for post hospitalization care will be discharge to inpatient rehab facility. Hill Baker MD Internal Medicine, PG-2 * Nursing Notes - Madai Montaño RN - 10/30/2022 5:57 PM EDT Rin Frankel MD: [id number] Flanagan: This patient has tuberculosis labs sent down today. If we're testing for TB then they need to be placed in airborne precautions until ruled out. Please place orders.Thanks! -Madai [id number] Madai Montaño RN * Plan of Care - Juliana Thrasher, PT - 10/30/2022 2:30 PM EDT Problem: PT - Balance/Coordination/Neuro Re-Education Goal: Standing Dynamic/Static Balance Description: Pt will perform standing balance tasks for 10 minutes with standby assistance with outan assistive device in order to improve functional mobility and safety with standing tasks. Outcome: Ongoing Problem: PT - Mobility Goal: Ambulation Description: Pt will ambulate 150 feet with out an assistive device with supervision to improve ability to navigate home environment. Outcome: Ongoing Goal: Stairs Description: Pt will ascend/descend 5 stairs with 1 railings with supervision with out an assistivedevice to improve ability to perform functional mobility necessary in recommended discharge environment. Outcome: Ongoing Problem: PT - Transfers Goal: Supine <-> Sit Description: Pt will perform bed mobility with flat bed & no rail with modified independence inorder to improve functional mobility and safety. Outcome: Ongoing Goal: Sit <-> Stand Description: Pt will perform sit to/from stand transfers with supervision with out an assistive device in order to improve functional mobility and safety. Outcome: Ongoing * Plan of Care - Madai Dumas OT - 10/30/2022 8:30 AM EDT Problem: OT - Dressing Goal: Upper Body Dressing Description: Pt will complete UE dressing task Edge of bed with independence for improved ability to complete self-care activities. Outcome: Ongoing Goal: Lower Body Dressing Description: Pt will complete LE dressing tasks with independence for improved ability to complete self-care activities. Outcome: Ongoing Problem: OT - Endurance Goal: Endurance Functional Mobilty Around Home Description: Pt will complete distance needed for common household mobility Supervision A Outcome: Ongoing Problem: OT - Strength/ROM Goal: Strength/ROM ADL Participation Description: Pt will demonstrate independence with UE exercise program to prevent deconditioning while in the hospital and to maximize UE ROM/coordination/strength for ADL participation. Outcome: Ongoing Problem: OT - Other Goal: Energy Conservation Task Recall Description: Pt will independently recall 4 energy conservation principles to increase functional activity tolerance during ADLs, IADLs, and mobility tasks. Outcome: Ongoing * Medical Student - Waleska Turpin - 10/30/2022 7:43 AM EDT Images from the original note were not included. Inpatient Neurology Consultation Note Physician: Waleska Turpin, MS3 Patient: Doug Flanagan, 1990, [id number] ADMIT DATE: 10/29/2022 Date of face to face patient encounter: 10/30/2022 Requesting Provider Adolfo Flores MD Reason for Consultation 32 yo F with hx of seizures and MG on Ultomiris. Can you assist with titration of AEDs and starting EEG? 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 Yesterday, she lost consciousness and fell while watering plants. She does not recall the event or any inciting factors, but her father reported no jerking prior. She returned to baseline immediately. She reports frequent falling with muscle weakness and standing which requires help from her parents to shower. About 20 minutes later while sitting in a recliner, she felt a seizure coming on with generalized tremulousness and palpitations. She called for her father to bring her rescue intranasal diazepam, then lost consciousness and had full body shaking and stiffening for 2-3 minutes, associated with cyanosis, tongue biting, and urinary incontinence. A state of agitation and combativeness followed for 3- 4 minutes, and resulted in a large bruise on her left leg. Then, she came to and reported hours of confusion and fatigue. She then was transported to the ED via EMS where she had a similar episode.She was treated with ativan and reports that the episode resolved with a sternal rub. Pt reports adherence to her medications. Reports palpitations and chills on her lower limbs for multiple days, but no fever, cough, diarrhea, abdominal pain. Endorses SOB at rest and exertion, musclesoreness/weakness, and dysphagia while chewing food. Patient reported some sleep deprivation the evening prior to seizures. Seizure History: Her first seizure was at age 11 but reports episodes of staring at ages 11-12. Last seizure occurred 07/2022 following plasma exchange treatment for Myasthenia Gravis. Typically has no aura with seizures. No history of EGG TRAYER infection. Risk factors include family history of an aunt with a seizure disorder and a fall with loss of consciousness in 5th grade. -Home AED medications: lamotrigine 100 mg QAM, 250 QPM, oxcarbazepine 150 mg at bedtime, [id number] mg daily and 300 mg at bedtime. Myasthenia Gravis Diagnosed 2018. Last seen by [facility] 10/06/2022. AChR ab+. She is status post thymectomy and Soliris.Treated with Ultomiris and port placed in 2021 for PLEX. Has missed 4 months of ultomiris due to insurance billing issues with local neurologist. Has been resumed 08/2022. Has had progressively worsening weakness. At last appointment advised to start Mestinon 30 mg TID. Tried this for 2 weeks which worsened headaches and did not improve weakness. 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 Today, she reports vertical dipoplia, muscle weakness, choking on solid food, and SOB at rest and on exertion. Last Medical and Surgical History: Past Medical History: Diagnosis Date Abnormal Pap smear of cervix 10/06/2022 Bleeding disorder 2020 Blood clot in RUE due to mediport. 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 Other constipation 10/06/2022 Restless legs 10/06/2022 Seizure 2002 Tension-type headache, not intractable 10/06/2022 Past Surgical History: Procedure Laterality Date INSERTION CVC TUNNELED W/ PORT PUMP Right 10/16/2020 R IJ powerport placed by Dr Tevin Malcolm APPENDECTOMY ARTHROSCOPY HIP W/ LABRAL REPAIR Right REPLACEMENT CENTRAL VENOUS ACCESS DEVICE W/ PORT PUMP Right THYMECTOMY 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 Medications: Current Scheduled Medications: apixaban (ELIQUIS) tablet 5 mg, 5 mg, BID Escitalopram (LEXAPRO) tablet 10 mg, 10 mg, QHS lamoTRIgine (laMICtal) tablet 100 mg, 100 mg, Daily lamoTRIgine (laMICtal) tablet 250 mg, 250 mg, QHS OXcarbazepine (TRILEPTAL) tablet 150 mg, 150 mg, QHS rOPINIRole (REQUIP) tablet 1.5 mg, 1.5 mg, QHS zonisamide (ZONEGRAN) capsule 200 mg, 200 mg, Daily And zonisamide (ZONEGRAN) capsule 300 mg, 300 mg, QHS Current PRN Medications: Acetaminophen, 650 mg, Q6H PRN LORazepam, 0.5 mg, TID PRN Melatonin, 6 mg, QHS PRN Ondansetron 4mg/2ml, 4 mg, Q6H PRN Or Ondansetron, 4 mg, Q6H PRN Polyethylene glycol, 17 g, Daily PRN Sodium chloride 0.9%, 250 mL, PRN Allergies: Allergies Allergen Reactions Iodides Pt states she can have a seizure with sea food but has had CT with dye without any problem on numerous occasions Levetiracetam Hallucination Gait instability Hallucinations, suicidal thoughts Phenytoin Other reaction(s): Mental Status Change, Other I go crazy Suicidal Gait instability, n/v Hallucination, vomiting Prochlorperazine Other reaction(s): Intolerance, Other Severe agitation Shellfish-Derived Products Other reaction(s): Other Seizures Seizures, but not IV with contrast Soybean Oil Other reaction(s): Other: See Comments Penicillins Hives and Rash rash Review of Systems: ROS as mentioned in HPI. Physical Exam: Temp: [97.8 F (36.6 C)-98 F (36.7 C)] 97.9 F (36.6 C) Pulse (Heart Rate): [64-78] 72 Resp Rate: [16] 16 BP: (105-113)/(56-67) 113/56 O2 Sat (%): [97 %-100 %] 100 % Weight: [80.6 kg (177 lb 11.1 oz)] 80.6 kg (177 lb 11.1 oz) O2 Device: room air (10/30/22 0729) Body mass index is 31.48 kg/m . Gen: NAD, alert, conversant, HENT: NCAT, normal external appearance of ears and nose Cardio: RR Resp: no increased WOB Ext: warm and well-perfused, no LE edema Skin: No rash, contusion on left proximal leg Neuro: alert and oriented, moving all four extremities Psych: Good eye contact, normal affect, judgment and insight intact to history taking, normal speech and content Neurological Examination Mental status: awake and alert, oriented to person, place, year, and situation. Normal mood and affect. Speech/language: fluent; comprehension intact Cranial nerves: CN II: Visual moore intact to confrontation. PERRL. Normal conjunctivae and lids. chicken sexer III, IV and : extraocular movements intact. No fatigable weakness with upgaze. No nystagmus. Mild eye closure weakness. Double vision and increased pain with upgaze. CN V: Facial sensation is intact to light touch. CN VII: mild b/l facial weakness CN VIII: Hearing is grossly intact. CN IX and X: Soft palate elevates symmetrically in the midline CN XII: Tongue is midline with normal movement; no fasciculations. Motor: Normal bulk and tone. SA EE EF WE WF DI HF KE KF DF PF Right 4+ 4+ 4+ 4+ 4+ 4+ 3 5 4 5 5 Left 4- 4 4 4 4 4 3 4+ 4- 5 5 Reflexes: Right Left Comments Biceps 2 2 Triceps Brachioradialis 2 2 Patellar 2+ 2+ Achilles 2 2 clonus Zamudio Babinski Down Down Coordination: [id number] intact bilaterally. Finger tapping intact. Sensation: Comments Light touch Intact throughout Pin prick Temperature Vibration Mildly diminished at b/l great toes Proprioception Gait: Increased effort with moving from sitting to standing with bilateral arm assistance. Unable to move from sitting to standing without assistance. Normal stride length and balance. Data Review: CBC: Lab Results Component Value Date WBC 11.71 (H) 10/30/2022 HGB 11.7 10/30/2022 HCT 35.8 10/30/2022 PLATELET 265 10/30/2022 MCV 82.3 10/30/2022 Chem: Lab Results Component Value Date SODIUM 139 10/30/2022 POTASSIUM 3.3 (L) 10/30/2022 CHLORIDE 108 10/30/2022 CO2 21 10/30/2022 BUN 11 10/30/2022 CREATSERUM 0.57 10/30/2022 GLUCOSE 89 10/30/2022 Coags: Ptt/Pt/Inr: 31.1/14.2/1.1 (10/30 0102) Micro: No results found for: CULTURE Imaging / Procedures: Chest Xray (10/20/22): Right lung volume diminished with patchy mid lung opacities. Atelectasis or developing infection are considerations in the appropriate clinical setting. MRI Brain w/w/o contrast (08/01/22): Normal MRI of the brain with and without contrast. MRI C-spine w/w/o contrast (08/01/22): 1. Normal appearance of the cervical and thoracic spinal cord. Negative study. 2. Incidental 9 mm osseous lesion in the parasymphysis of the left hemimandible which is most likely a odontogenic inflammatory lesion but otherwise not characterized on this exam. 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 Yesterday, she lost consciousness and fell while watering plants. She does not recall the event or any inciting factors, but her father reported no jerking prior. She returned to baseline immediately. She reports frequent falling with muscle weakness and standing which requires help from her parents to shower. About 20 minutes later while sitting in a recliner, she felt a seizure coming on with generalized tremulousness and palpitations. She called for her father to bring her rescue intranasal diazepam, then lost consciousness and had full body shaking and stiffening for 2-3 minutes, associated with cyanosis, tongue biting, and urinary incontinence. A state of agitation and combativeness followed for 3- 4 minutes, and resulted in a large bruise on her left leg. Then, she came to and reported hours of confusion and fatigue. 1. Intractable generalized epilepsy: Differential includes intractable epilepsy due to inadequate AED titration and provoked by sleep deprivation. Description of events with associated tongue biting, urinary incontinence, and cyanosis and history of EEG generalized discharges support epileptic nature of event. The event was likely triggered by sleep deprivation and possible infectious cause due to CXR. Breakthrough seizures while on2 therapeutic doses of ASD is concerning for medication refractory epilepsy. Other considerations include infectious cause due to CXR with patchy opacities. Less likely due to negative URI and GI symptoms, besides weakness and chills, and SOB. UA results pending. Also considered metabolic derangement, but less likely due to labs within normal limits. Intoxication also considered, UDS pending. Recommend patient to f/u outpatient for seizure classification. If EEG findings support a generalized seizure, then Trileptal could be worsening symptoms of seizures. 2. Proximal weakness Proximal weakness on exam concerning for etiology other than known Myasthenia Gravis. On exam, ptosis, facial weakness,and difficulty swallowing and positive AChR antibodies suggest Myasthenia symptoms worsening. Proximal weakness concerning for possible myopathy or myositis. Recommend CK to rule out any other cause for weakness. Follow up outpatient to manage Myasthenia. Chronic Conditions: -Anxiety: continue home lexapro 10 mg daily Recommendations Diagnostic Workup: 1. rEEG 2. CK labs 3. NIF/VC monitoring Medications: 1. Increase lamotrigine to 150 qAM and 250 qPM 2. Continue Oxcarbazepine 150 qd and zonegram 200 qAM and 300 qPM 3. Consider weaning carbamazepine outpatient pending rEEG results 4. Start folic acid to prevent AED complications Non-pharmacological: 1. Outpatient EEG 2. Seizure precautions Consultations/Referrals/Follow-Up: 1. F/u with outpatient neuromuscular clinic 2. F/u with outpatient epilepsy clinic for potential seizure monitoring and classification Discussed with Dr. Conway, attending physician. Waleska Turpin, MS3 * Plan of Care - Juanito Mirza RN - 10/30/2022 2:27 AM EDT Problem: Patient Care Overview Goal: Plan of Care Review Outcome: Ongoing Goal: Individualization & Mutuality Outcome: Ongoing Goal: Discharge Needs Assessment Outcome: Ongoing Goal: Interdisciplinary Rounds/Family Conf Outcome: Ongoing * Nursing Notes - Juanito Mirza RN - 10/30/2022 12:23 AM EDT On admission to [facility], from [facility] a dual RN initial assessment of skin condition was performed by VANESSA Morrow and Pooja MENDEZ. Skin Assessment: WDL LDA Added:N Juanito Hermes, RN * Nursing Notes - Juanito Mirza RN - 10/29/2022 10:43 PM EDT Industrial Spraypainter paged Gen Med 7 for orders and to come see patient. [facility]* Nursing Notes - Odalis Gomez RN - 11/02/2022 1:35 PM EDT Resident called back and said he would make the necessary changes for her lamictal and would message when he got it fixed GM7 resident paged asking for someone to call RN regarding meds to discharge on Odalis Gomez RN [facility]07-03-2023 Hospital course Narrative* Hill Limon MD - 11/02/2022 12:19 PM EDT Images from the original note were not included. Discharge Summary Name: Doug Flanagan Age: 32 y.o. Birthday: 1990 Admit Date: 10/29/2022 10:47 PM Discharge Date: 11/02/2022 Discharge Time: 1:30PM Discharge Unit: [facility] Admission Information Admitting Physician: Nancy aFith MD Discharge Information Discharge Physician: Irena Hinson MD Active Hospital Problems Diagnosis Breakthrough seizure Seizures Resolved Hospital Problems No resolved problems to display. RESULTS / STUDIES PENDING AT DISCHARGE: Myostitis Panel, Vitamin D to be followed up as an outpatient FURTHER RECOMMENDATIONS: - Will have close follow up with neuromuscular clinic, as well as epilepsy specialists to continue titration and evaluation as an outpatient - Medications were up-titrated to lamictal 150mg in the morning and 250mg in the PM, otherwise her medications were kept the same. Folic acid was also added given that she is of childbearing age. DISCHARGE LETTER: Dear Doctors, I recently had the opportunity to care for Doug Flanagan during her recent hospital stay at [facility]. Doug Flanagan is a 32 y.o. female with history of myasthenia gravis (dx in 2018), epilepsy, and anxiety who presents for breakthrough seizures. Breakthrough seizures Patient with history of epilepsy now with breakthrough seizures x3 on 10/29 though not documented onEEG. Last seizure occurred August 2022. Differential for breakthrough seizures include infection, metabolic derangement, intoxication, inadequate AED titration, ingestion vs new dx PNES. Infectious work up without underlying etiology. Neurology consulted and adjusted lamictal dosing - Current regimen: - Lamictal 150 mg AM, 250 mg PM - Trileptal 150 mg daily - Zonegran 200 mg AM, 300 mg PM - start Folic Acid - Consider weaning Oxcarbazepine outpatient pending rEEG results - f/up in [facility] Hx of Myasthenia Gravis Diagnosed 2017. Last seen by [facility] neuromuscular 10/06/2022. AChR ab+. She is status post thymectomy and Soliris.Treated with Ultomiris and port placed in 2021 for PLEX. Has missed 4 months of ultomiris due to insurance billing issues with local neurologist. Has been resumed 08/2022. Has had progressively worsening weakness. At last appointment advised to start Mestinon 30 mg TID. Tried this for 2 weeks which worsened headaches and did not improve weakness. 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 - Consulted PT/OTFariha for outpatient physical and occupational therapy - Follow up as an outpatient for further management of MG - Continue Ultomiris as an outpatient - f/up in [facility]rom[facility] Outpatient regimen was otherwise unchanged. Physical Exam on the Date of Discharge: Temp: [97.6 F (36.4 C)-98.4 F (36.9 C)] 98.1 F (36.7 C) Pulse (Heart Rate): [62-89] 81 Resp Rate: [16-18] 16 BP: (95-113)/(51-71) 105/68 O2 Sat (%): [93 %-99 %] 93 % Body mass index is 31.48 kg/m . Wt Readings from Last 1 Encounters: 10/29/22 80.6 kg (177 lb 11.1 oz) CV: RRR, No MRG, Normal S1/S2 Resp: CTABL, No Wheezes, rhonchi or rales GI: Soft NT/ND, NABS Neuro: AxOx3, CN intact, proximal muscle weakness noted Psych: Appropriate for clinical situation Upon discharge the patient's code status Full It has been my pleasure participating in this patient's care. Please contact me with any questions or concerns regarding her hospital stay. Sincerely, Hill Limon MD PGY - 3 Dictated under attending physician Irena Hinson MD Division of Internal medicin CONSULTS DURING ADMISSION: IP CONSULT TO PHYSICAL THERAPY IP CONSULT TO OCCUPATIONAL THERAPY IP CONSULT TO NEUROLOGY IMAGING / PROCEDURES / RESULTS: XR CHEST PORTABLE Final Result IMPRESSION: Right lung volume is diminished with patchy right midlung opacities. Atelectasis or developing infection are considerations in the appropriate clinical setting. Should you require further information or copies of results or reports please contact [employer] @ [phone] LABS AT TIME OF DISCHARGE: Lab Results Component Value Date SODIUM 139 11/02/2022 POTASSIUM 3.7 11/02/2022 MAGNESIUM 1.9 11/02/2022 BUN 17 11/02/2022 CREATSERUM 0.76 11/02/2022 Lab Results Component Value Date WBC 6.95 11/02/2022 HGB 11.7 11/02/2022 PLATELET 267 11/02/2022 INR 1.1 11/01/2022 No results found for: HGBA1C No results found for: AST, ALT, ALKPHOS, BILITOTAL, BILIDIRECT, ALBUMIN PATIENT'S MEDICAL HOME AT DISCHARGE: Donna Perdomo [id number] [facility] [address] / [facility] [id number] MEDICATIONS: Medication List for when you go home START taking these medications Folic acid 1 MG TABS Take 1 tablet by mouth daily. Commonly known as: FOLVITE Start taking on: November 03, 2022 CHANGE how you take these medications * lamoTRIgine 150 MG TABS Take 1 tablet by mouth daily. Commonly known as: laMICtal What changed: You were already taking a medication with the same name, and this prescription was added. Make sure you understand how and when to take each. Start taking on: November 03, 2022 Replaces: LamoTRIgine 100 MG tab XL * LamoTRIgine 200 MG tab XL Take 1 tablet by mouth Every night. What changed: Another medication with the same name was added. Make sure you understand how and when to take each. Another medication with the same name was removed. Continue taking this medication, and follow the directions you see here. * The same medication is listed twice. Please discuss with your provider. CONTINUE taking these medications apixaban 5 MG TABS Take 1 tablet by mouth 2 times daily. Commonly known as: ELIQUIS Escitalopram 10 MG TABS Take 1 tablet by mouth at bedtime. Commonly known as: LEXAPRO LORazepam 0.5 MG TABS Take 0.5-1 tablets by mouth 3 times daily as needed. Commonly known as: ATIVAN Mirena (52 MG) 20 MCG/DAY 1 Intra Uterine Device by Intrauterine route once. Generic drug: Levonorgestrel OXcarbazepine 150 MG TABS Take 1 tablet by mouth at bedtime. Commonly known as: TRILEPTAL rOPINIRole 1 MG TABS Take 1.5 tablets by mouth Every night. Commonly known as: REQUIP Ultomiris 300 MG/30ML SOLN 130 mL by Intravenous route every 56 days. Generic drug: Ravulizumab-cwvz Valtoco 10 MG Dose 10 MG/0.1ML LIQD 10 mg by Nasal route as needed. Generic drug: diazePAM zonisamide 100 MG CAPS Take by mouth 2 times daily. 2 caps in the am , 3 caps at bedtime Commonly known as: ZONEGRAN STOP taking these medications LamoTRIgine 100 MG tab XL Replaced by: lamoTRIgine 150 MG TABS You also have another medication with the same name that you need to continue taking as instructed. No follow-up provider specified. 11/02/22 Approximately 36 minutes were spent on the discharge planning and implementation for this patient. Will continue seizure and MG med titration as an outpatient. Appropriate follow up arranged and pending issues as noted. Irena Hinson MD [facility] of Internal Medicine [facility] documented in this [facility]OS[facility] Plan of care note* Plan of Care - Madai Dumas OT - 11/02/2022 12:00 PM EDT Problem: OT - Dressing Goal: Upper Body Dressing Description: Pt will complete UE dressing task Edge of bed with independence for improved ability to complete self-care activities. Outcome: Adequate for Discharge Goal: Lower Body Dressing Description: Pt will complete LE dressing tasks with independence for improved ability to complete self-care activities. Outcome: Adequate for Discharge Problem: OT - Endurance Goal: Endurance Functional Mobilty Around Home Description: Pt will complete distance needed for common household mobility Supervision A Outcome: Adequate for Discharge Problem: OT - Strength/ROM Goal: Strength/ROM ADL Participation Description: Pt will demonstrate independence with UE exercise program to prevent deconditioning while in the hospital and to maximize UE ROM/coordination/strength for ADL participation. Outcome: Adequate for Discharge Problem: OT - Other Goal: Energy Conservation Task Recall Description: Pt will independently recall 4 energy conservation principles to increase functional activity tolerance during ADLs, IADLs, and mobility tasks. Outcome: Adequate for Discharge [facility] Discharge instructions* Discharge Instructions* Hill Limon MD - 11/02/2022 11:50 AM EDT For your recent hospitalization for breakthrough seizures as well as weakness, your lamictal was increased from 100 in the am and 250 in the afternoon to 150 in the morning and and 250 in the afternoon. - Otherwise continue your trileptal, Zongran, and Oxcarbazepine as previously prescribed for your seizure management - Schedulers have been notified to be able to be able to help with scheduling you with your neurology team as an outpatient. - I have also put in for an additional referral for you to be able to schedule with the neuromuscular team to be able to follow up myositis panel I also put in for referals for outpatient physical therapy and occupational therapy to continue on this perspective to improve your strength as well. [facility] Discharge instructions* Discharge Instructions* Hill Limon MD - 11/02/2022 11:50 AM EDT For your recent hospitalization for breakthrough seizures as well as weakness, your lamictal was increased from 100 in the am and 250 in the afternoon to 150 in the morning and and 250 in the afternoon. - Otherwise continue your trileptal, Zongran, and Oxcarbazepine as previously prescribed for your seizure management - Schedulers have been notified to be able to be able to help with scheduling you with your neurology team as an outpatient. - I have also put in for an additional referral for you to be able to schedule with the neuromuscular team to be able to follow up myositis panel I also put in for referals for outpatient physical therapy and occupational therapy to continue on this perspective to improve your strength as well. [facility] Plan of care note* Plan of Care - Efrain Quesada PT - 11/02/2022 9:52 AM EDT Problem: PT - Balance/Coordination/Neuro Re-Education Goal: Standing Dynamic/Static Balance Description: Pt will perform standing balance tasks for 10 minutes with standby assistance with outan assistive device in order to improve functional mobility and safety with standing tasks. Outcome: Progressing Toward Goal Problem: PT - Mobility Goal: Ambulation Description: Pt will ambulate 150 feet with out an assistive device with supervision to improve ability to navigate home environment. Outcome: Progressing Toward Goal Goal: Stairs Description: Pt will ascend/descend 5 stairs with 1 railings with supervision with out an assistivedevice to improve ability to perform functional mobility necessary in recommended discharge environment. Outcome: Progressing Toward Goal Problem: PT - Transfers Goal: Supine <-> Sit Description: Pt will perform bed mobility with flat bed & no rail with modified [place] in[place] to improve functional mobility and safety. Outcome: Met This Shift Goal: Sit <-> Stand Description: Pt will perform sit to/from stand transfers with supervision with out an assistive device in order to improve functional mobility and safety. Outcome: Progressing Toward Goal [facility]07-03-2023 Plan of care note* Plan of Care - Juanito Mirza RN - 11/02/2022 3:03 AM EDT Problem: Patient Care Overview Goal: Plan of Care Review Outcome: Ongoing Goal: Individualization & Mutuality Outcome: Ongoing Goal: Discharge Needs Assessment Outcome: Ongoing Goal: Interdisciplinary Rounds/Family Conf Outcome: Ongoing [facility]07-02-[facility] Plan of care note* Plan of Care - Gina Rodríguez RN - 11/01/2022 8:02 PM EDT Problem: Patient Care Overview Goal: Plan of Care Review Outcome: Ongoing Goal: Individualization & Mutuality Outcome: Ongoing Goal: Discharge Needs Assessment Outcome: Ongoing Goal: Interdisciplinary Rounds/Family Conf Outcome: Ongoing [facility]07-01-2023 Plan of care note* Plan of Care - Gina Rodríguez RN - 10/31/2022 6:56 PM EDT Problem: Patient Care Overview Goal: Plan of Care Review Outcome: Ongoing Goal: Individualization & Mutuality Outcome: Ongoing Goal: Discharge Needs Assessment Outcome: Ongoing Goal: Interdisciplinary Rounds/Family Conf Outcome: Ongoing [facility]06-30-[facility] Progress note* Certification - Hill Baker MD - 10/30/2022 8:07 PM EDT I certify that this patient requires inpatient services at this time. I anticipate the expected length of stay will include at least two midnights. Inpatient services are due to the following medicalconcerns break through seizures and falls. Plans for post hospitalization care will be discharge to inpatient rehab facility. Hill Baker MD Internal Medicine, PG-2 [facility] Work Phone: [phone]) 200-312506-30-2023 Nurse Note* Nursing Notes - Madai Montaño RN - 10/30/2022 5:57 PM EDT Rin Frankel MD: [facility] [id number] Flanagan: This patient has tuberculosis labs sent down today. If we're testing for TB then they need to be placed in airborne precautions until ruled out. Please place orders.Thanks! -Madai [phone] Madai Montaño RN [facility]06-30-2023 Plan of care note* Plan of Care - Juliana Thrasher, PT - 10/30/2022 2:30 PM EDT Problem: PT - Balance/Coordination/Neuro Re-Education Goal: Standing Dynamic/Static Balance Description: Pt will perform standing balance tasks for 10 minutes with standby assistance with outan assistive device in order to improve functional mobility and safety with standing tasks. Outcome: Ongoing Problem: PT - Mobility Goal: Ambulation Description: Pt will ambulate 150 feet with out an assistive device with supervision to improve ability to navigate home environment. Outcome: Ongoing Goal: Stairs Description: Pt will ascend/descend 5 stairs with 1 railings with supervision with out an assistivedevice to improve ability to perform functional mobility necessary in recommended discharge environment. Outcome: Ongoing Problem: PT - Transfers Goal: Supine <-> Sit Description: Pt will perform bed mobility with flat bed & no rail with [facility] to improve functional mobility and safety. Outcome: Ongoing Goal: Sit <-> Stand Description: Pt will perform sit to/from stand transfers with supervision with out an assistive device in order to improve functional mobility and safety. Outcome: Ongoing [facility]06-30[facility] Plan of care note* Plan of Care - Madai Dumas OT - 10/30/2022 8:30 AM EDT Problem: OT - Dressing Goal: Upper Body Dressing Description: Pt will complete UE dressing task Edge of bed with independence for improved ability to complete self-care activities. Outcome: Ongoing Goal: Lower Body Dressing Description: Pt will complete LE dressing tasks with independence for improved ability to complete self-care activities. Outcome: Ongoing Problem: OT - Endurance Goal: Endurance Functional Mobilty Around Home Description: Pt will complete distance needed for common household mobility Supervision A Outcome: Ongoing Problem: OT - Strength/ROM Goal: Strength/ROM ADL Participation Description: Pt will demonstrate independence with UE exercise program to prevent deconditioning while in the hospital and to maximize UE ROM/coordination/strength for ADL participation. Outcome: Ongoing Problem: OT - Other Goal: Energy Conservation Task Recall Description: Pt will independently recall 4 energy conservation principles to increase functional activity tolerance during ADLs, IADLs, and mobility tasks. Outcome: Ongoing [facility] Consult note* Becky Rasmussen DO - 10/30/2022 8:17 AM EDTAssociated Order(s): IP CONSULT TO NEUROLOGY NEUROLOGY CONSULTATION NOTE Reason for consultation: 32 yo F with hx of seizures and MG on Ultomiris. Can you assist with titration of AEDs and starting EEG? History of present illness: Doug Flanagan is a 32 y.o. female with history of myasthenia gravis (diagnosed 2018), epilepsy and anxiety, presenting with breakthrough seizures. Yesterday morning was watering her plants when she developed staring with sudden unprovoked fall. Does not remember fall. Dad witnessed event. Looked like legs went out. No jerks prior to fall. No abnormal movements during fall. Immediate return to baseline. 20 minutes later felt abnormal like she was going to have a seizure with generalized tremulousness.Administered [place] Diazepam. Following was reclining on couch, had loss of consciousness with generalized stiffening and jerking associated with cyanosis, tongue biting and urine incontinence. Lasted 3 m inutes. Following was very combative for 4 minutes. Resulted in large bruise on left leg. She then was more scared and following was more confused for a couple of hours. Called 911. While in the ED had second event. Again felt seizure coming on and jolting of her extremities followed by generalizedstiffness and rhythmic jerking. Currently at neurological baseline. No missed doses of medication. Since this weekend has had increased heart palpitations and chills but never had documented fevers. No URI or GI symptoms just had generalized fatigue. Had poor sleep due to large amounts of smoke in the air day prior to seizures. She is on disability and is not driving. Seizure history: Prior to this last seizure was 07/2022 following PLEX. Prior to this seizures wouldoccur once yearly. No recent changes in medications. Oxcarbazepine added most recently but > 1 year ago. Seizures first started at 11 years of age but may have had episodes of staring starting at 11-12 years of age. Home anti-seizure medicaitons include Lamotrigine 100 mg QAM, 250 mg QPM, Oxcarbazepine 150 mg daily, Zonisamide 200 mg QAM and 300 mg QPM. Myasthenia Gravis: diagnosed in 2017. Last seen by [facility] 10/06/2022. AChR ab (blocking, binding and modulating positive). She is status post thymectomy and Soliris.Treated with Ultomiris and port placed in 2021 for PLEX. Has missed 4 months of ultomiris due to insurance billing issues with local neurologist. Has been resumed 08/2022. Has had progressively worsening weakness (greated in shoulders and hips over last 6-12 months. Now requiring special silverware and bath chair. Parents frequently in home with her due to increased frequency of falls. At last appointment advised tostart Mestinon 30 mg TID. Tried this for 2 weeks which worsened headaches and did not improve weakne ss. Review of Systems: Pertinent items are noted in the HPI, all other systems were queried and are negative. Past Medical History: Diagnosis Date Abnormal Pap smear of cervix 10/06/2022 Bleeding disorder 2020 Blood clot in RUE due to mediport. 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 Other constipation 10/06/2022 Restless legs 10/06/2022 Seizure 2002 Tension-type headache, not intractable 10/06/2022 Past Surgical History: Procedure Laterality Date INSERTION CVC TUNNELED W/ PORT PUMP Right 10/16/2020 R IJ powerport placed by Dr Tevin Malcolm APPENDECTOMY ARTHROSCOPY HIP W/ LABRAL REPAIR Right REPLACEMENT CENTRAL VENOUS ACCESS DEVICE W/ PORT PUMP Right THYMECTOMY TRANSCERVICAL APPROACH ROBOTIC Family History Problem Relation Age of Onset No known problems Mother No known problems Father Multiple Sclerosis Sister No known problems Brother Social History Socioeconomic History Marital status: Single Spouse name: Not on file Number of children: Not on file Years of education: Not on file Highest education level: Not on file Occupational History Not on file Tobacco Use Smoking status: Never Smokeless tobacco: Never Vaping Use Vaping Use: Never used Substance and Sexual Activity Alcohol use: Never Drug use: Never Sexual activity: Not Currently Partners: Male control/protection: I.U.D. Other Topics Concern Occupational Exposure No Hobby Hazards No Social History Narrative Not on file Social Determinants of Health Financial Resource Strain: Not on file Food Insecurity: Not on file Transportation Needs: Not on file Physical Activity: Not on file Stress: Not on file Social Connections: Not on file Intimate Partner Violence: Not on file Housing Stability: Not on file Allergies Allergen Reactions Iodides Pt states she can have a seizure with sea food but has had CT with dye without any problem on numerous occasions Levetiracetam Hallucination Gait instability Hallucinations, suicidal thoughts Phenytoin Other reaction(s): Mental Status Change, Other I go crazy Suicidal Gait instability, n/v Hallucination, vomiting Prochlorperazine Other reaction(s): Intolerance, Other Severe agitation Shellfish-Derived Products Other reaction(s): Other Seizures Seizures, but not IV with contrast Soybean Oil Other reaction(s): Other: See Comments Penicillins Hives and Rash rash Medications Prior to Admission Medication Sig Dispense Refill Last Dose apixaban 5 MG tablet Take 1 tablet by mouth 2 times daily. Escitalopram 10 MG tablet Take 1 tablet by mouth at bedtime. LamoTRIgine 100 MG Tab SR 24 HR Take 1 tablet by mouth daily. LamoTRIgine 200 MG Tab SR 24 HR Take 1 tablet by mouth Every night. Levonorgestrel (Mirena, 52 MG,) 20 MCG/DAY 1 Intra Uterine Device by Intrauterine route once. LORazepam 0.5 MG tablet Take 0.5-1 tablets by mouth 3 times daily as needed. OXcarbazepine 150 MG tablet Take 1 tablet by mouth at bedtime. Ravulizumab-cwvz (Ultomiris) 300 MG/30ML Solution 130 mL by Intravenous route every 56 days. 1300 mL 0 rOPINIRole 1 MG tablet Take 1.5 tablets by mouth Every night. Valtoco 10 MG Dose 10 MG/0.1ML Liquid 10 mg by Nasal route as needed. zonisamide 100 MG capsule Take by mouth 2 times daily. 2 caps in the am , 3 caps at bedtime Current medications: Current Facility-Administered Medications Medication Dose Route Frequency Provider Last Rate Last Admin Acetaminophen (TYLENOL) tablet 650 mg 650 mg Oral Q6H PRN Brianna Chilel MD apixaban (ELIQUIS) tablet 5 mg 5 mg Oral BID Brianna Chilel MD Escitalopram (LEXAPRO) tablet 10 mg 10 mg Oral QHS Brianna Chilel MD lamoTRIgine (laMICtal) tablet 100 mg 100 mg Oral Daily Brianna Chilel MD lamoTRIgine (laMICtal) tablet 250 mg 250 mg Oral QHS Brianna Chilel MD 250 mg at 10/30/22 0236 LORazepam (ATIVAN) tablet 0.5 mg 0.5 mg Oral TID PRN Brianna Chilel MD Melatonin tablet 6 mg 6 mg Oral QHS PRN Brianna Chilel MD Ondansetron 4mg/2ml (ZOFRAN) injection 4 mg 4 mg Intravenous Q6H PRN Brianna Chilel MD Or Ondansetron (ZOFRAN) tablet 4 mg 4 mg Oral Q6H PRN Brianna Chilel MD OXcarbazepine (TRILEPTAL) tablet 150 mg 150 mg Oral QHS Brianna Chilel MD Polyethylene glycol (MIRALAX) packet 17 g 17 g Oral Daily PRN Brianna Chilel MD Potassium chloride (K-DUR) tablet ER 40 mEq 40 mEq Oral Once bK Mitchell MD rOPINIRole (REQUIP) tablet 1.5 mg 1.5 mg Oral QHS Brianna Chilel MD Sodium chloride 0.9% IV solution 250 mL 250 mL Intravenous PRN Brianna Chilel MD zonisamide (ZONEGRAN) capsule 200 mg 200 mg Oral Daily Brianna Chilel MD And zonisamide (ZONEGRAN) capsule 300 mg 300 mg Oral QHS Brianna Chilel MD 300 mg at 10/30/22 0236 Physical Examination Temp: [97.8 F (36.6 C)-98 F (36.7 C)] 97.9 F (36.6 C) Pulse (Heart Rate): [64-78] 72 Resp Rate: [16] 16 BP: (105-113)/(56-67) 113/56 O2 Sat (%): [97 %-100 %] 100 % Weight: [80.6 kg (177 lb 11.1 oz)] 80.6 kg (177 lb 11.1 oz) Body mass index is 31.48 kg/m . General: Sitting in chair; in no acute distress. HENT: Normal oropharynx and mucosa. Normal external appearance of ears and nose. Neck: Supple, no pain or tenderness CV: RR. No peripheral edema. Resp: no increased work of breathing Ext: No cyanosis, edema, or deformity Skin: No rash. Normal palpation of skin. Musculoskeletal: full range of motion; no joint tenderness. Normal digits and nails by inspection. No clubbing. Neurological Examination Mental status: awake and alert; oriented to person, place, year, and month; good attention. Normal mood and affect. Normal insight into condition. Fund of knowledge intact. Speech/language: fluent; comprehension intact; object naming intact; repetition intact. Cranial nerves: CN II: Visual moore intact to confrontation. PERRL. Normal conjunctivae and lids. chicken sexer III, IV and : extraocular movements intact. No fatigable weakness with upgaze. No nystagmus. Mild eye closure weakness CN V: Facial sensation is intact to light touch. CN VII: mild b/l facial weakness CN VIII: Hearing is grossly intact. CN IX and X: Soft palate elevates symmetrically in the midline CN XII: Tongue is midline with normal movement; no fasciculations. Motor: Normal bulk and tone. SA EE EF WE WF DI HF KE KF DF PF Right 4+ 4+ 4+ 4+ 4+ 4+ 3 5 4 5 5 Left 4- 4 4 4 4 4 3 4+ 4- 5 5 Reflexes: Right Left Comments Biceps 2 2 Triceps Brachioradialis 2 2 Patellar 3 3 Achilles 2 2 clonus absent absent Zamudio negative negative Babinski Down Down Coordination: Xlmdpz-jn-bvrc intact bilaterally. Sensation: Comments Light touch Intact throughout Pin prick Temperature Vibration Mildly diminished at b/l great toes Proprioception Gait: Increased effort with moving from sitting to standing with b/l arm assistance, unable to movefrom sitting to standing without assistance, normal stride length and balance, unable to perform toe or heel walking Laboratory data: Latest Reference Range & Units 10/30/22 01:02 SODIUM 135 - 145 mmol/L 139 POTASSIUM 3.5 - 5.0 mmol/L 3.3 (L) CHLORIDE 98 - 108 mmol/L 108 CARBON DIOXIDE (CO2) 21 - 31 mmol/L 21 BUN 7 - 25 mg/dL 11 Creatinine 0.50 - 1.20 mg/dL 0.57 BUN/CREA RATIO 19 eGFR, CKD-EPI, Female >=60 mL/min/1.73m2 >90 PHOSPHATE, INORGANIC 2.2 - 4.6 mg/dL 3.6 MAGNESIUM 1.6 - 2.6 mg/dL 1.7 CALCIUM 8.6 - 10.5 mg/dL 8.8 ANION GAP 7 - 17 mmol/L 13 OSMOLALITY (CALC) 278 - 305 mOsm/kg 288 GLUCOSE 70 - 99 mg/dL 89 PT 11.9 - 14.2 sec 14.2 INR 0.9 - 1.1 1.1 PTT 24.0 - 34.3 sec 31.1 WBC 3.99 - 11.19 K/uL 11.71 (H) RBC 3.91 - 5.04 M/uL 4.35 HEMOGLOBIN 11.4 - 15.2 g/dL 11.7 HEMATOCRIT 34.9 - 44.3 % 35.8 MEAN CELL VOLUME 79.6 - 97.7 fL 82.3 Mean Cell HGB 25.9 - 33.9 pg 26.9 MEAN CELL HGB CONCENTRATION 31.4 - 35.9 g/dL 32.7 RBC DISTRIBUTION 10.8 - 14.9 % 13.2 PLATELET COUNT 150 - 393 K/uL 265 MEAN PLATELET VOLUME 8.5 - 12.2 fL 9.4 RBC, NUCLEATED <=0.2 /100 WBC 0.0 (L): Data is abnormally low (H): Data is abnormally high Imaging/diagnostic procedures: 10/20/2022 CXR: Right lung volume is diminished with patchy right midlung opacities. Atelectasis or developing infection are considerations in the appropriate clinical setting. 08/01/2022 MRI Brain with and without contrast Normal MRI of the brain with and without contrast. 08/01/2022 MRI C-Spine: 1. Normal appearance of the cervical and thoracic spinal cord. Negative study. 2. Incidental 9 mm osseous lesion in the parasymphysis of the left hemimandible which is most likely a odontogenic inflammatory lesion but otherwise not characterized on this exam. Routine EEG January 15, 2014 ([facility]): Classification Abnormal III (Awake, Drowsy, 10-20 Scalp Electrodes) 1 Nasim and Wave Complex, Generalized Impression: Doug Flanagan is a 32 y.o. female with history of myasthenia gravis (diagnosed 2017), epilepsy (possibly idiopathic generalized epilepsy based on chart review) and anxiety, presenting with breakthrough seizures. Description of events with associated cyanosis, tongue biting and urinary incontinence and history of generalized discharges on EEG is concerning for breakthrough epileptic seizures. She is on therapeutic doses of 2 medications with breakthrough seizures which is concerning for intractable epilepsy. Trigger for breakthrough seizures likely due to sleep deprivation and possible pneumonia on CXR. Patient prefers to transfer care to [facility] epilepsy clinic. Would recommend outpatient rEEG for further evaluation. If patient truly has generalized discharges on rEEG it is possible/ likely Oxcarbazepineis worsening rather than improving seizures as this is used to treat focal rather than generalized s eizures. Based on results of rEEG would consider weaning Oxcarbazepine outpatient. For breakthroughseizures will increase Lamotrigine. Would defer management of possible pneumonia to IM team. Differential for progressively worsening proximal weakness without clear fatigability is less consistent with myasthenia. However, she does have intermittent episodes of double vision, ptosis and increased difficulty with swallowing with possible fatigability and positive AChR antibodies and worsening symptoms in the setting of missed doses of medication could suggest this. Will obtain CK to screen for other myopathy/ myositis. Will defer remainder of work- up and management to outpatient neuromuscular team. Recommendations: - Increase Lamotrigine to 150 mg QAM and 250 mg QPM - Continue Zonisamide 200 mg QAM and 300 mg QPM and Oxcarbazepine 150 mg QHS - start Folic Acid - NIF/ VC once - Consider weaning Oxcarbazepine outpatient pending rEEG results - Outpatient rEEG - CK - Requires follow-up in [facility] epilepsy clinic and neuromuscular clinics Patient seen and discussed with neurology attending Dr. Conway. Thank you for the consultation. If you have any further questions, please contact the neurology consultation resident. Becky Rasmussen DO Neurology Resident, PGY-4 Associated attestation - Anna Marie Conway MD - 10/30/2022 6:10 PM EDT I saw and independently examined the patient today on 10/30/22. I agree with the history, examination, and medical decision making as outlined by the resident. In addition, this is a 32 y.o. female with history of myasthenia gravis and idiopathic generalized epilepsy presenting with breakthrough seizures. Denies any missed doses of AED's, no other clear triggers. Also reports falls and weakness of her arms and legs. Neuro exam shows normal attention, orientation, language. CN 2-12 intact. Strength is 4/5 in shoulder abduction and 4- in hip flexion. I have reviewed the following tests and diagnostics: UA non-infectious, potassium 3.3, WBC 11.7, OSH MRI brain, cervical, and thoracic w/wo August 2022: normal routine EEG January 2014: This EEG supports the diagnosis of generalized epilepsy. For her breakthrough seizures will increase Lamictal as below and patient should be prescribed folic acid as she is of child bearing age, out-patient EEG and epilepsy clinic follow up. For myasthenia, checked NIF which is -40. Currently low suspicion for myasthenic crisis, we did also discuss with the patient general regarding prognosis of myasthenia gravis and we did update the patient's out-patient [facility] neurologist of her clinical status. Anna Marie Conway M.D. Attending Neurologist [facility] Work Phone: [phone] Consult note* Becky Rasmussen DO - 10/30/2022 8:17 AM EDTAssociated Order(s): IP CONSULT TO NEUROLOGY NEUROLOGY CONSULTATION NOTE Reason for consultation: 32 yo F with hx of seizures and MG on Ultomiris. Can you assist with titration of AEDs and starting EEG? History of present illness: Doug Flanagan is a 32 y.o. female with history of myasthenia gravis (diagnosed 2018), epilepsy and anxiety, presenting with breakthrough seizures. Yesterday morning was watering her plants when she developed staring with sudden unprovoked fall. Does not remember fall. Dad witnessed event. Looked like legs went out. No jerks prior to fall. No abnormal movements during fall. Immediate return to baseline. 20 minutes later felt abnormal like she was going to have a seizure with generalized tremulousness.Administered [place] Diazepam. Following was reclining on couch, had loss of consciousness with generalized stiffening and jerking associated with cyanosis, tongue biting and urine incontinence. Lasted 3 m inutes. Following was very combative for 4 minutes. Resulted in large bruise on left leg. She then was more scared and following was more confused for a couple of hours. Called 911. While in the ED had second event. Again felt seizure coming on and jolting of her extremities followed by generalizedstiffness and rhythmic jerking. Currently at neurological baseline. No missed doses of medication. Since this weekend has had increased heart palpitations and chills but never had documented fevers. No URI or GI symptoms just had generalized fatigue. Had poor sleep due to large amounts of smoke in the air day prior to seizures. She is on disability and is not driving. Seizure history: Prior to this last seizure was 07/2022 following PLEX. Prior to this seizures wouldoccur once yearly. No recent changes in medications. Oxcarbazepine added most recently but > 1 year ago. Seizures first started at 11 years of age but may have had episodes of staring starting at 11-12 years of age. Home anti-seizure medicaitons include Lamotrigine 100 mg QAM, 250 mg QPM, Oxcarbazepine 150 mg daily, Zonisamide 200 mg QAM and 300 mg QPM. Myasthenia Gravis: diagnosed in 2018. Last seen by [facility] neuromuscular clinic 10/06/2022. AChR ab (blocking, binding and modulating positive). She is status post thymectomy and Soliris.Treated with Ultomiris and port placed in 2021 for PLEX. Has missed 4 months of ultomiris due to insurance billing issues with local neurologist. Has been resumed 08/2022. Has had progressively worsening weakness (greated in shoulders and hips over last 6-12 months. Now requiring special silverware and bath chair. Parents frequently in home with her due to increased frequency of falls. At last appointment advised tostart Mestinon 30 mg TID. Tried this for 2 weeks which worsened headaches and did not improve weakne ss. Review of Systems: Pertinent items are noted in the HPI, all other systems were queried and are negative. Past Medical History: Diagnosis Date Abnormal Pap smear of cervix 10/06/2022 Bleeding disorder 2020 Blood clot in RUE due to mediport. 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 Other constipation 10/06/2022 Restless legs 10/06/2022 Seizure 2002 Tension-type headache, not intractable 10/06/2022 Past Surgical History: Procedure Laterality Date INSERTION CVC TUNNELED W/ PORT PUMP Right 10/16/2020 R IJ powerport placed by Dr Tevin Malcolm APPENDECTOMY ARTHROSCOPY HIP W/ LABRAL REPAIR Right REPLACEMENT CENTRAL VENOUS ACCESS DEVICE W/ PORT PUMP Right THYMECTOMY TRANSCERVICAL APPROACH ROBOTIC Family History Problem Relation Age of Onset No known problems Mother No known problems Father Multiple Sclerosis Sister No known problems Brother Social History Socioeconomic History Marital status: Single Spouse name: Not on file Number of children: Not on file Years of education: Not on file Highest education level: Not on file Occupational History Not on file Tobacco Use Smoking status: Never Smokeless tobacco: Never Vaping Use Vaping Use: Never used Substance and Sexual Activity Alcohol use: Never Drug use: Never Sexual activity: Not Currently Partners: Male control/protection: I.U.D. Other Topics Concern Occupational Exposure No Hobby Hazards No Social History Narrative Not on file Social Determinants of Health Financial Resource Strain: Not on file Food Insecurity: Not on file Transportation Needs: Not on file Physical Activity: Not on file Stress: Not on file Social Connections: Not on file Intimate Partner Violence: Not on file Housing Stability: Not on file Allergies Allergen Reactions Iodides Pt states she can have a seizure with sea food but has had CT with dye without any problem on numerous occasions Levetiracetam Hallucination Gait instability Hallucinations, suicidal thoughts Phenytoin Other reaction(s): Mental Status Change, Other I go crazy Suicidal Gait instability, n/v Hallucination, vomiting Prochlorperazine Other reaction(s): Intolerance, Other Severe agitation Shellfish-Derived Products Other reaction(s): Other Seizures Seizures, but not IV with contrast Soybean Oil Other reaction(s): Other: See Comments Penicillins Hives and Rash rash Medications Prior to Admission Medication Sig Dispense Refill Last Dose apixaban 5 MG tablet Take 1 tablet by mouth 2 times daily. Escitalopram 10 MG tablet Take 1 tablet by mouth at bedtime. LamoTRIgine 100 MG Tab SR 24 HR Take 1 tablet by mouth daily. LamoTRIgine 200 MG Tab SR 24 HR Take 1 tablet by mouth Every night. Levonorgestrel (Mirena, 52 MG,) 20 MCG/DAY 1 Intra Uterine Device by Intrauterine route once. LORazepam 0.5 MG tablet Take 0.5-1 tablets by mouth 3 times daily as needed. OXcarbazepine 150 MG tablet Take 1 tablet by mouth at bedtime. Ravulizumab-cwvz (Ultomiris) 300 MG/30ML Solution 130 mL by Intravenous route every 56 days. 1300 mL 0 rOPINIRole 1 MG tablet Take 1.5 tablets by mouth Every night. Valtoco 10 MG Dose 10 MG/0.1ML Liquid 10 mg by Nasal route as needed. zonisamide 100 MG capsule Take by mouth 2 times daily. 2 caps in the am , 3 caps at bedtime Current medications: Current Facility-Administered Medications Medication Dose Route Frequency Provider Last Rate Last Admin Acetaminophen (TYLENOL) tablet 650 mg 650 mg Oral Q6H PRN Brianna Chilel MD apixaban (ELIQUIS) tablet 5 mg 5 mg Oral BID Brianna Chilel MD Escitalopram (LEXAPRO) tablet 10 mg 10 mg Oral QHS Brianna Chilel MD lamoTRIgine (laMICtal) tablet 100 mg 100 mg Oral Daily Brianna Chilel MD lamoTRIgine (laMICtal) tablet 250 mg 250 mg Oral QHS Brianna Chilel MD 250 mg at 10/30/22 0236 LORazepam (ATIVAN) tablet 0.5 mg 0.5 mg Oral TID PRN Brianna Chilel MD Melatonin tablet 6 mg 6 mg Oral QHS PRN Brianna Chilel MD Ondansetron 4mg/2ml (ZOFRAN) injection 4 mg 4 mg Intravenous Q6H PRN Brianna Chilel MD Or Ondansetron (ZOFRAN) tablet 4 mg 4 mg Oral Q6H PRN Brianna Chilel MD OXcarbazepine (TRILEPTAL) tablet 150 mg 150 mg Oral QHS Brianna Chilel MD Polyethylene glycol (MIRALAX) packet 17 g 17 g Oral Daily PRN Brianna Chilel MD Potassium chloride (K-DUR) tablet ER 40 mEq 40 mEq Oral Once Kb Mitchell MD rOPINIRole (REQUIP) tablet 1.5 mg 1.5 mg Oral QHS Brianna Chilel MD Sodium chloride 0.9% IV solution 250 mL 250 mL Intravenous PRN Brianna Chilel MD zonisamide (ZONEGRAN) capsule 200 mg 200 mg Oral Daily Brianna Chilel MD And zonisamide (ZONEGRAN) capsule 300 mg 300 mg Oral QHS Brianna Chilel MD 300 mg at 10/30/22 0236 Physical Examination Temp: [97.8 F (36.6 C)-98 F (36.7 C)] 97.9 F (36.6 C) Pulse (Heart Rate): [64-78] 72 Resp Rate: [16] 16 BP: (105-113)/(56-67) 113/56 O2 Sat (%): [97 %-100 %] 100 % Weight: [80.6 kg (177 lb 11.1 oz)] 80.6 kg (177 lb 11.1 oz) Body mass index is 31.48 kg/m . General: Sitting in chair; in no acute distress. HENT: Normal oropharynx and mucosa. Normal external appearance of ears and nose. Neck: Supple, no pain or tenderness CV: RR. No peripheral edema. Resp: no increased work of breathing Ext: No cyanosis, edema, or deformity Skin: No rash. Normal palpation of skin. Musculoskeletal: full range of motion; no joint tenderness. Normal digits and nails by inspection. No clubbing. Neurological Examination Mental status: awake and alert; oriented to person, place, year, and month; good attention. Normal mood and affect. Normal insight into condition. Fund of knowledge intact. Speech/language: fluent; comprehension intact; object naming intact; repetition intact. Cranial nerves: CN II: Visual moore intact to confrontation. PERRL. Normal conjunctivae and lids. chicken sexer III, IV and : extraocular movements intact. No fatigable weakness with upgaze. No nystagmus. Mild eye closure weakness CN V: Facial sensation is intact to light touch. CN VII: mild b/l facial weakness CN VIII: Hearing is grossly intact. CN IX and X: Soft palate elevates symmetrically in the midline CN XII: Tongue is midline with normal movement; no fasciculations. Motor: Normal bulk and tone. SA EE EF WE WF DI HF KE KF DF PF Right 4+ 4+ 4+ 4+ 4+ 4+ 3 5 4 5 5 Left 4- 4 4 4 4 4 3 4+ 4- 5 5 Reflexes: Right Left Comments Biceps 2 2 Triceps Brachioradialis 2 2 Patellar 3 3 Achilles 2 2 clonus absent absent Zamudio negative negative Babinski Down Down Coordination: Eozwju-xc-xtly intact bilaterally. Sensation: Comments Light touch Intact throughout Pin prick Temperature Vibration Mildly diminished at b/l great toes Proprioception Gait: Increased effort with moving from sitting to standing with b/l arm assistance, unable to movefrom sitting to standing without assistance, normal stride length and balance, unable to perform toe or heel walking Laboratory data: Latest Reference Range & Units 10/30/22 01:02 SODIUM 135 - 145 mmol/L 139 POTASSIUM 3.5 - 5.0 mmol/L 3.3 (L) CHLORIDE 98 - 108 mmol/L 108 CARBON DIOXIDE (CO2) 21 - 31 mmol/L 21 BUN 7 - 25 mg/dL 11 Creatinine 0.50 - 1.20 mg/dL 0.57 BUN/CREA RATIO 19 eGFR, CKD-EPI, Female >=60 mL/min/1.73m2 >90 PHOSPHATE, INORGANIC 2.2 - 4.6 mg/dL 3.6 MAGNESIUM 1.6 - 2.6 mg/dL 1.7 CALCIUM 8.6 - 10.5 mg/dL 8.8 ANION GAP 7 - 17 mmol/L 13 OSMOLALITY (CALC) 278 - 305 mOsm/kg 288 GLUCOSE 70 - 99 mg/dL 89 PT 11.9 - 14.2 sec 14.2 INR 0.9 - 1.1 1.1 PTT 24.0 - 34.3 sec 31.1 WBC 3.99 - 11.19 K/uL 11.71 (H) RBC 3.91 - 5.04 M/uL 4.35 HEMOGLOBIN 11.4 - 15.2 g/dL 11.7 HEMATOCRIT 34.9 - 44.3 % 35.8 MEAN CELL VOLUME 79.6 - 97.7 fL 82.3 Mean Cell HGB 25.9 - 33.9 pg 26.9 MEAN CELL HGB CONCENTRATION 31.4 - 35.9 g/dL 32.7 RBC DISTRIBUTION 10.8 - 14.9 % 13.2 PLATELET COUNT 150 - 393 K/uL 265 MEAN PLATELET VOLUME 8.5 - 12.2 fL 9.4 RBC, NUCLEATED <=0.2 /100 WBC 0.0 (L): Data is abnormally low (H): Data is abnormally high Imaging/diagnostic procedures: 10/20/2022 CXR: Right lung volume is diminished with patchy right midlung opacities. Atelectasis or developing infection are considerations in the appropriate clinical setting. 08/01/2022 MRI Brain with and without contrast Normal MRI of the brain with and without contrast. 08/01/2022 MRI C-Spine: 1. Normal appearance of the cervical and thoracic spinal cord. Negative study. 2. Incidental 9 mm osseous lesion in the parasymphysis of the left hemimandible which is most likely a odontogenic inflammatory lesion but otherwise not characterized on this exam. Routine EEG January 15, 2014 ([facility]): Classification Abnormal III (Awake, Drowsy, 10-20 Scalp Electrodes) 1 Nasim and Wave Complex, Generalized Impression: Doug Flanagan is a 32 y.o. female with history of myasthenia gravis (diagnosed 2018), epilepsy (possibly idiopathic generalized epilepsy based on chart review) and anxiety, presenting with breakthrough seizures. Description of events with associated cyanosis, tongue biting and urinary incontinence and history of generalized discharges on EEG is concerning for breakthrough epileptic seizures. She is on therapeutic doses of 2 medications with breakthrough seizures which is concerning for intractable epilepsy. Trigger for breakthrough seizures likely due to sleep deprivation and possible pneumonia on CXR. Patient prefers to transfer care to [facility]. Would recommend outpatient rEEG for further evaluation. If patient truly has generalized discharges on rEEG it is possible/ likely Oxcarbazepineis worsening rather than improving seizures as this is used to treat focal rather than generalized s eizures. Based on results of rEEG would consider weaning Oxcarbazepine outpatient. For breakthroughseizures will increase Lamotrigine. Would defer management of possible pneumonia to IM team. Differential for progressively worsening proximal weakness without clear fatigability is less consistent with myasthenia. However, she does have intermittent episodes of double vision, ptosis and increased difficulty with swallowing with possible fatigability and positive AChR antibodies and worsening symptoms in the setting of missed doses of medication could suggest this. Will obtain CK to screen for other myopathy/ myositis. Will defer remainder of work- up and management to outpatient neuromuscular team. Recommendations: - Increase Lamotrigine to 150 mg QAM and 250 mg QPM - Continue Zonisamide 200 mg QAM and 300 mg QPM and Oxcarbazepine 150 mg QHS - start Folic Acid - NIF/ VC once - Consider weaning Oxcarbazepine outpatient pending rEEG results - Outpatient rEEG - CK - Requires follow-up in [facility] epilepsy clinic and neuromuscular clinics Patient seen and discussed with neurology attending Dr. Conway. Thank you for the consultation. If you have any further questions, please contact the neurology consultation resident. Becky Rasmussen DO Neurology Resident, PGY-4 Associated attestation - Anna Marie Conway MD - 10/30/2022 6:10 PM EDT I saw and independently examined the patient today on 10/30/22. I agree with the history, examination, and medical decision making as outlined by the resident. In addition, this is a 32 y.o. female with history of myasthenia gravis and idiopathic generalized epilepsy presenting with breakthrough seizures. Denies any missed doses of AED's, no other clear triggers. Also reports falls and weakness of her arms and legs. Neuro exam shows normal attention, orientation, language. CN 2-12 intact. Strength is 4/5 in shoulder abduction and 4- in hip flexion. I have reviewed the following tests and diagnostics: UA non-infectious, potassium 3.3, WBC 11.7, OSH MRI brain, cervical, and thoracic w/wo August 2022: normal routine EEG January 2014: This EEG supports the diagnosis of generalized epilepsy. For her breakthrough seizures will increase Lamictal as below and patient should be prescribed folic acid as she is of child bearing age, out-patient EEG and epilepsy clinic follow up. For myasthenia, checked NIF which is -40. Currently low suspicion for myasthenic crisis, we did also discuss with the patient general regarding prognosis of myasthenia gravis and we did update the patient's out-patient [facility] neurologist of her clinical status. Anna Marie Conway M.D. Attending Neurologist documented in this encounter[facility] Consult note* Becky Rasmsusen, DO - 10/30/2022 8:17 AM EDTAssociated Order(s): IP CONSULT TO NEUROLOGY NEUROLOGY CONSULTATION NOTE Reason for consultation: 32 yo F with hx of seizures and MG on Ultomiris. Can you assist with titration of AEDs and starting EEG? History of present illness: Doug Flanagan is a 32 y.o. female with history of myasthenia gravis (diagnosed 2018), epilepsy and anxiety, presenting with breakthrough seizures. Yesterday morning was watering her plants when she developed staring with sudden unprovoked fall. Does not remember fall. Dad witnessed event. Looked like legs went out. No jerks prior to fall. No abnormal movements during fall. Immediate return to baseline. 20 minutes later felt abnormal like she was going to have a seizure with generalized tremulousness.Administered [place] Diazepam. Following was reclining on couch, had loss of consciousness with generalized stiffening and jerking associated with cyanosis, tongue biting and urine incontinence. Lasted 3 m inutes. Following was very combative for 4 minutes. Resulted in large bruise on left leg. She then was more scared and following was more confused for a couple of hours. Called 911. While in the ED had second event. Again felt seizure coming on and jolting of her extremities followed by generalizedstiffness and rhythmic jerking. Currently at neurological baseline. No missed doses of medication. Since this weekend has had increased heart palpitations and chills but never had documented fevers. No URI or GI symptoms just had generalized fatigue. Had poor sleep due to large amounts of smoke in the air day prior to seizures. She is on disability and is not driving. Seizure history: Prior to this last seizure was 07/2022 following PLEX. Prior to this seizures wouldoccur once yearly. No recent changes in medications. Oxcarbazepine added most recently but > 1 year ago. Seizures first started at 11 years of age but may have had episodes of staring starting at 11-12 years of age. Home anti-seizure medicaitons include Lamotrigine 100 mg QAM, 250 mg QPM, Oxcarbazepine 150 mg daily, Zonisamide 200 mg QAM and 300 mg QPM. Myasthenia Gravis: diagnosed in 2018. Last seen by [facility] clinic 10/06/2022. AChR ab (blocking, binding and modulating positive). She is status post thymectomy and Soliris.Treated with Ultomiris and port placed in 2021 for PLEX. Has missed 4 months of ultomiris due to insurance billing issues with local neurologist. Has been resumed 08/2022. Has had progressively worsening weakness (greated in shoulders and hips over last 6-12 months. Now requiring special silverware and bath chair. Parents frequently in home with her due to increased frequency of falls. At last appointment advised tostart Mestinon 30 mg TID. Tried this for 2 weeks which worsened headaches and did not improve weakne ss. Review of Systems: Pertinent items are noted in the HPI, all other systems were queried and are negative. Past Medical History: Diagnosis Date Abnormal Pap smear of cervix 10/06/2022 Bleeding disorder 2020 Blood clot in RUE due to mediport. 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 Other constipation 10/06/2022 Restless legs 10/06/2022 Seizure 2002 Tension-type headache, not intractable 10/06/2022 Past Surgical History: Procedure Laterality Date INSERTION CVC TUNNELED W/ PORT PUMP Right 10/16/2020 R IJ powerport placed by Dr Tevin Malcolm APPENDECTOMY ARTHROSCOPY HIP W/ LABRAL REPAIR Right REPLACEMENT CENTRAL VENOUS ACCESS DEVICE W/ PORT PUMP Right THYMECTOMY TRANSCERVICAL APPROACH ROBOTIC Family History Problem Relation Age of Onset No known problems Mother No known problems Father Multiple Sclerosis Sister No known problems Brother Social History Socioeconomic History Marital status: Single Spouse name: Not on file Number of children: Not on file Years of education: Not on file Highest education level: Not on file Occupational History Not on file Tobacco Use Smoking status: Never Smokeless tobacco: Never Vaping Use Vaping Use: Never used Substance and Sexual Activity Alcohol use: Never Drug use: Never Sexual activity: Not Currently Partners: Male control/protection: I.U.D. Other Topics Concern Occupational Exposure No Hobby Hazards No Social History Narrative Not on file Social Determinants of Health Financial Resource Strain: Not on file Food Insecurity: Not on file Transportation Needs: Not on file Physical Activity: Not on file Stress: Not on file Social Connections: Not on file Intimate Partner Violence: Not on file Housing Stability: Not on file Allergies Allergen Reactions Iodides Pt states she can have a seizure with sea food but has had CT with dye without any problem on numerous occasions Levetiracetam Hallucination Gait instability Hallucinations, suicidal thoughts Phenytoin Other reaction(s): Mental Status Change, Other I go crazy Suicidal Gait instability, n/v Hallucination, vomiting Prochlorperazine Other reaction(s): Intolerance, Other Severe agitation Shellfish-Derived Products Other reaction(s): Other Seizures Seizures, but not IV with contrast Soybean Oil Other reaction(s): Other: See Comments Penicillins Hives and Rash rash Medications Prior to Admission Medication Sig Dispense Refill Last Dose apixaban 5 MG tablet Take 1 tablet by mouth 2 times daily. Escitalopram 10 MG tablet Take 1 tablet by mouth at bedtime. LamoTRIgine 100 MG Tab SR 24 HR Take 1 tablet by mouth daily. LamoTRIgine 200 MG Tab SR 24 HR Take 1 tablet by mouth Every night. Levonorgestrel (Mirena, 52 MG,) 20 MCG/DAY 1 Intra Uterine Device by Intrauterine route once. LORazepam 0.5 MG tablet Take 0.5-1 tablets by mouth 3 times daily as needed. OXcarbazepine 150 MG tablet Take 1 tablet by mouth at bedtime. Ravulizumab-cwvz (Ultomiris) 300 MG/30ML Solution 130 mL by Intravenous route every 56 days. 1300 mL 0 rOPINIRole 1 MG tablet Take 1.5 tablets by mouth Every night. Valtoco 10 MG Dose 10 MG/0.1ML Liquid 10 mg by Nasal route as needed. zonisamide 100 MG capsule Take by mouth 2 times daily. 2 caps in the am , 3 caps at bedtime Current medications: Current Facility-Administered Medications Medication Dose Route Frequency Provider Last Rate Last Admin Acetaminophen (TYLENOL) tablet 650 mg 650 mg Oral Q6H PRN Brianna Chilel MD apixaban (ELIQUIS) tablet 5 mg 5 mg Oral BID Brianna Chilel MD Escitalopram (LEXAPRO) tablet 10 mg 10 mg Oral QHS Brianna Chilel MD lamoTRIgine (laMICtal) tablet 100 mg 100 mg Oral Daily Brianna Chilel MD lamoTRIgine (laMICtal) tablet 250 mg 250 mg Oral QHS Brianna Chilel MD 250 mg at 10/30/22 0236 LORazepam (ATIVAN) tablet 0.5 mg 0.5 mg Oral TID PRN Brianna Chilel MD Melatonin tablet 6 mg 6 mg Oral QHS PRN Brianna Chilel MD Ondansetron 4mg/2ml (ZOFRAN) injection 4 mg 4 mg Intravenous Q6H PRN Brianna Chilel MD Or Ondansetron (ZOFRAN) tablet 4 mg 4 mg Oral Q6H PRN Brianna Chilel MD OXcarbazepine (TRILEPTAL) tablet 150 mg 150 mg Oral QHS Brianna Chilel MD Polyethylene glycol (MIRALAX) packet 17 g 17 g Oral Daily PRN Brianna Chille MD Potassium chloride (K-DUR) tablet ER 40 mEq 40 mEq Oral Once Kb MD Paula rOPINIRole (REQUIP) tablet 1.5 mg 1.5 mg Oral QHS Brianna Chilel MD Sodium chloride 0.9% IV solution 250 mL 250 mL Intravenous PRN Brianna Chilel MD zonisamide (ZONEGRAN) capsule 200 mg 200 mg Oral Daily Brianna Chilel MD And zonisamide (ZONEGRAN) capsule 300 mg 300 mg Oral QHS Brianna Chilel MD 300 mg at 10/30/22 0236 Physical Examination Temp: [97.8 F (36.6 C)-98 F (36.7 C)] 97.9 F (36.6 C) Pulse (Heart Rate): [64-78] 72 Resp Rate: [16] 16 BP: (105-113)/(56-67) 113/56 O2 Sat (%): [97 %-100 %] 100 % Weight: [80.6 kg (177 lb 11.1 oz)] 80.6 kg (177 lb 11.1 oz) Body mass index is 31.48 kg/m . General: Sitting in chair; in no acute distress. HENT: Normal oropharynx and mucosa. Normal external appearance of ears and nose. Neck: Supple, no pain or tenderness CV: RR. No peripheral edema. Resp: no increased work of breathing Ext: No cyanosis, edema, or deformity Skin: No rash. Normal palpation of skin. Musculoskeletal: full range of motion; no joint tenderness. Normal digits and nails by inspection. No clubbing. Neurological Examination Mental status: awake and alert; oriented to person, place, year, and month; good attention. Normal mood and affect. Normal insight into condition. Fund of knowledge intact. Speech/language: fluent; comprehension intact; object naming intact; repetition intact. Cranial nerves: CN II: Visual moore intact to confrontation. PERRL. Normal conjunctivae and lids. chicken sexer III, IV and : extraocular movements intact. No fatigable weakness with upgaze. No nystagmus. Mild eye closure weakness CN V: Facial sensation is intact to light touch. CN VII: mild b/l facial weakness CN VIII: Hearing is grossly intact. CN IX and X: Soft palate elevates symmetrically in the midline CN XII: Tongue is midline with normal movement; no fasciculations. Motor: Normal bulk and tone. SA EE EF WE WF DI HF KE KF DF PF Right 4+ 4+ 4+ 4+ 4+ 4+ 3 5 4 5 5 Left 4- 4 4 4 4 4 3 4+ 4- 5 5 Reflexes: Right Left Comments Biceps 2 2 Triceps Brachioradialis 2 2 Patellar 3 3 Achilles 2 2 clonus absent absent Zamudio negative negative Babinski Down Down Coordination: [id number] intact bilaterally. Sensation: Comments Light touch Intact throughout Pin prick Temperature Vibration Mildly diminished at b/l great toes Proprioception Gait: Increased effort with moving from sitting to standing with b/l arm assistance, unable to movefrom sitting to standing without assistance, normal stride length and balance, unable to perform toe or heel walking Laboratory data: Latest Reference Range & Units 10/30/22 01:02 SODIUM 135 - 145 mmol/L 139 POTASSIUM 3.5 - 5.0 mmol/L 3.3 (L) CHLORIDE 98 - 108 mmol/L 108 CARBON DIOXIDE (CO2) 21 - 31 mmol/L 21 BUN 7 - 25 mg/dL 11 Creatinine 0.50 - 1.20 mg/dL 0.57 BUN/CREA RATIO 19 eGFR, CKD-EPI, Female >=60 mL/min/1.73m2 >90 PHOSPHATE, INORGANIC 2.2 - 4.6 mg/dL 3.6 MAGNESIUM 1.6 - 2.6 mg/dL 1.7 CALCIUM 8.6 - 10.5 mg/dL 8.8 ANION GAP 7 - 17 mmol/L 13 OSMOLALITY (CALC) 278 - 305 mOsm/kg 288 GLUCOSE 70 - 99 mg/dL 89 PT 11.9 - 14.2 sec 14.2 INR 0.9 - 1.1 1.1 PTT 24.0 - 34.3 sec 31.1 WBC 3.99 - 11.19 K/uL 11.71 (H) RBC 3.91 - 5.04 M/uL 4.35 HEMOGLOBIN 11.4 - 15.2 g/dL 11.7 HEMATOCRIT 34.9 - 44.3 % 35.8 MEAN CELL VOLUME 79.6 - 97.7 fL 82.3 Mean Cell HGB 25.9 - 33.9 pg 26.9 MEAN CELL HGB CONCENTRATION 31.4 - 35.9 g/dL 32.7 RBC DISTRIBUTION 10.8 - 14.9 % 13.2 PLATELET COUNT 150 - 393 K/uL 265 MEAN PLATELET VOLUME 8.5 - 12.2 fL 9.4 RBC, NUCLEATED <=0.2 /100 WBC 0.0 (L): Data is abnormally low (H): Data is abnormally high Imaging/diagnostic procedures: 10/20/2022 CXR: Right lung volume is diminished with patchy right midlung opacities. Atelectasis or developing infection are considerations in the appropriate clinical setting. 08/01/2022 MRI Brain with and without contrast Normal MRI of the brain with and without contrast. 08/01/2022 MRI C-Spine: 1. Normal appearance of the cervical and thoracic spinal cord. Negative study. 2. Incidental 9 mm osseous lesion in the parasymphysis of the left hemimandible which is most likely a odontogenic inflammatory lesion but otherwise not characterized on this exam. Routine EEG January 15, 2014 ([facility]): Classification Abnormal III (Awake, Drowsy, 10-20 Scalp Electrodes) 1 Nasim and Wave Complex, Generalized Impression: Doug Flanagan is a 32 y.o. female with history of myasthenia gravis (diagnosed 2018), epilepsy (possibly idiopathic generalized epilepsy based on chart review) and anxiety, presenting with breakthrough seizures. Description of events with associated cyanosis, tongue biting and urinary incontinence and history of generalized discharges on EEG is concerning for breakthrough epileptic seizures. She is on therapeutic doses of 2 medications with breakthrough seizures which is concerning for intractable epilepsy. Trigger for breakthrough seizures likely due to sleep deprivation and possible pneumonia on CXR. Patient prefers to transfer care to [facility]. Would recommend outpatient rEEG for further evaluation. If patient truly has generalized discharges on rEEG it is possible/ likely Oxcarbazepineis worsening rather than improving seizures as this is used to treat focal rather than generalized s eizures. Based on results of rEEG would consider weaning Oxcarbazepine outpatient. For breakthroughseizures will increase Lamotrigine. Would defer management of possible pneumonia to IM team. Differential for progressively worsening proximal weakness without clear fatigability is less consistent with myasthenia. However, she does have intermittent episodes of double vision, ptosis and increased difficulty with swallowing with possible fatigability and positive AChR antibodies and worsening symptoms in the setting of missed doses of medication could suggest this. Will obtain CK to screen for other myopathy/ myositis. Will defer remainder of work- up and management to outpatient neuromuscular team. Recommendations: - Increase Lamotrigine to 150 mg QAM and 250 mg QPM - Continue Zonisamide 200 mg QAM and 300 mg QPM and Oxcarbazepine 150 mg QHS - start Folic Acid - NIF/ VC once - Consider weaning Oxcarbazepine outpatient pending rEEG results - Outpatient rEEG - CK - Requires follow-up in [facility] and neuromuscular clinics Patient seen and discussed with neurology attending Dr. Conway. Thank you for the consultation. If you have any further questions, please contact the neurology consultation resident. Becky Rasmussen DO Neurology Resident, PGY-4 Associated attestation - Anna Marie Conway MD - 10/30/2022 6:10 PM EDT I saw and independently examined the patient today on 10/30/22. I agree with the history, examination, and medical decision making as outlined by the resident. In addition, this is a 32 y.o. female with history of myasthenia gravis and idiopathic generalized epilepsy presenting with breakthrough seizures. Denies any missed doses of AED's, no other clear triggers. Also reports falls and weakness of her arms and legs. Neuro exam shows normal attention, orientation, language. CN 2-12 intact. Strength is 4/5 in shoulder abduction and 4- in hip flexion. I have reviewed the following tests and diagnostics: UA non-infectious, potassium 3.3, WBC 11.7, OSH MRI brain, cervical, and thoracic w/wo August 2022: normal routine EEG January 2014: This EEG supports the diagnosis of generalized epilepsy. For her breakthrough seizures will increase Lamictal as below and patient should be prescribed folic acid as she is of child bearing age, out-patient EEG and epilepsy clinic follow up. For myasthenia, checked NIF which is -40. Currently low suspicion for myasthenic crisis, we did also discuss with the patient general regarding prognosis of myasthenia gravis and we did update the patient's out-patient [facility] neurologist of her clinical status. Anna Marie Conway M.D. Attending Neurologist documented in this encounter[facility] Note* Medical Student - Waleska Trupin - 10/30/2022 7:43 AM EDT Images from the original note were not included. Inpatient Neurology Consultation Note Physician: Waleska Turpin, MS3 Patient: Doug Flanagan, 1990, [id number] ADMIT DATE: 10/29/2022 Date of face to face patient encounter: 10/30/2022 Requesting Provider Adolfo Flores MD Reason for Consultation 32 yo F with hx of seizures and MG on Ultomiris. Can you assist with titration of AEDs and starting EEG? 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 Yesterday, she lost consciousness and fell while watering plants. She does not recall the event or any inciting factors, but her father reported no jerking prior. She returned to baseline immediately. She reports frequent falling with muscle weakness and standing which requires help from her parents to shower. About 20 minutes later while sitting in a recliner, she felt a seizure coming on with generalized tremulousness and palpitations. She called for her father to bring her rescue intranasal diazepam, then lost consciousness and had full body shaking and stiffening for 2-3 minutes, associated with cyanosis, tongue biting, and urinary incontinence. A state of agitation and combativeness followed for 3- 4 minutes, and resulted in a large bruise on her left leg. Then, she came to and reported hours of confusion and fatigue. She then was transported to the ED via EMS where she had a similar episode.She was treated with ativan and reports that the episode resolved with a sternal rub. Pt reports adherence to her medications. Reports palpitations and chills on her lower limbs for multiple days, but no fever, cough, diarrhea, abdominal pain. Endorses SOB at rest and exertion, musclesoreness/weakness, and dysphagia while chewing food. Patient reported some sleep deprivation the evening prior to seizures. Seizure History: Her first seizure was at age 11 but reports episodes of staring at ages 11-12. Last seizure occurred 07/2022 following plasma exchange treatment for Myasthenia Gravis. Typically has no aura with seizures. No history of EGG TRAYER infection. Risk factors include family history of an aunt with a seizure disorder and a fall with loss of consciousness in 5th grade. -Home AED medications: lamotrigine 100 mg QAM, 250 QPM, oxcarbazepine 150 mg at bedtime, [id number] mg daily and 300 mg at bedtime. Myasthenia Gravis Diagnosed 2017. Last seen by [facility] 10/06/2022. AChR ab+. She is status post thymectomy and Soliris.Treated with Ultomiris and port placed in 2021 for PLEX. Has missed 4 months of ultomiris due to insurance billing issues with local neurologist. Has been resumed 08/2022. Has had progressively worsening weakness. At last appointment advised to start Mestinon 30 mg TID. Tried this for 2 weeks which worsened headaches and did not improve weakness. 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 Today, she reports vertical dipoplia, muscle weakness, choking on solid food, and SOB at rest and on exertion. Last Medical and Surgical History: Past Medical History: Diagnosis Date Abnormal Pap smear of cervix 10/06/2022 Bleeding disorder 2020 Blood clot in RUE due to mediport. 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 Other constipation 10/06/2022 Restless legs 10/06/2022 Seizure 2002 Tension-type headache, not intractable 10/06/2022 Past Surgical History: Procedure Laterality Date INSERTION CVC TUNNELED W/ PORT PUMP Right 10/16/2020 R IJ powerport placed by Dr Tevin Malcolm APPENDECTOMY ARTHROSCOPY HIP W/ LABRAL REPAIR Right REPLACEMENT CENTRAL VENOUS ACCESS DEVICE W/ PORT PUMP Right THYMECTOMY 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 Medications: Current Scheduled Medications: apixaban (ELIQUIS) tablet 5 mg, 5 mg, BID Escitalopram (LEXAPRO) tablet 10 mg, 10 mg, QHS lamoTRIgine (laMICtal) tablet 100 mg, 100 mg, Daily lamoTRIgine (laMICtal) tablet 250 mg, 250 mg, QHS OXcarbazepine (TRILEPTAL) tablet 150 mg, 150 mg, QHS rOPINIRole (REQUIP) tablet 1.5 mg, 1.5 mg, QHS zonisamide (ZONEGRAN) capsule 200 mg, 200 mg, Daily And zonisamide (ZONEGRAN) capsule 300 mg, 300 mg, QHS Current PRN Medications: Acetaminophen, 650 mg, Q6H PRN LORazepam, 0.5 mg, TID PRN Melatonin, 6 mg, QHS PRN Ondansetron 4mg/2ml, 4 mg, Q6H PRN Or Ondansetron, 4 mg, Q6H PRN Polyethylene glycol, 17 g, Daily PRN Sodium chloride 0.9%, 250 mL, PRN Allergies: Allergies Allergen Reactions Iodides Pt states she can have a seizure with sea food but has had CT with dye without any problem on numerous occasions Levetiracetam Hallucination Gait instability Hallucinations, suicidal thoughts Phenytoin Other reaction(s): Mental Status Change, Other I go crazy Suicidal Gait instability, n/v Hallucination, vomiting Prochlorperazine Other reaction(s): Intolerance, Other Severe agitation Shellfish-Derived Products Other reaction(s): Other Seizures Seizures, but not IV with contrast Soybean Oil Other reaction(s): Other: See Comments Penicillins Hives and Rash rash Review of Systems: ROS as mentioned in HPI. Physical Exam: Temp: [97.8 F (36.6 C)-98 F (36.7 C)] 97.9 F (36.6 C) Pulse (Heart Rate): [64-78] 72 Resp Rate: [16] 16 BP: (105-113)/(56-67) 113/56 O2 Sat (%): [97 %-100 %] 100 % Weight: [80.6 kg (177 lb 11.1 oz)] 80.6 kg (177 lb 11.1 oz) O2 Device: room air (10/30/22 0729) Body mass index is 31.48 kg/m . Gen: NAD, alert, conversant, HENT: NCAT, normal external appearance of ears and nose Cardio: RR Resp: no increased WOB Ext: warm and well-perfused, no LE edema Skin: No rash, contusion on left proximal leg Neuro: alert and oriented, moving all four extremities Psych: Good eye contact, normal affect, judgment and insight intact to history taking, normal speech and content Neurological Examination Mental status: awake and alert, oriented to person, place, year, and situation. Normal mood and affect. Speech/language: fluent; comprehension intact Cranial nerves: CN II: Visual moore intact to confrontation. PERRL. Normal conjunctivae and lids. chicken sexer III, IV and : extraocular movements intact. No fatigable weakness with upgaze. No nystagmus. Mild eye closure weakness. Double vision and increased pain with upgaze. CN V: Facial sensation is intact to light touch. CN VII: mild b/l facial weakness CN VIII: Hearing is grossly intact. CN IX and X: Soft palate elevates symmetrically in the midline CN XII: Tongue is midline with normal movement; no fasciculations. Motor: Normal bulk and tone. SA EE EF WE WF DI HF KE KF DF PF Right 4+ 4+ 4+ 4+ 4+ 4+ 3 5 4 5 5 Left 4- 4 4 4 4 4 3 4+ 4- 5 5 Reflexes: Right Left Comments Biceps 2 2 Triceps Brachioradialis 2 2 Patellar 2+ 2+ Achilles 2 2 clonus Zamudio Babinski Down Down Coordination: Daytyt-vv-vaaj intact bilaterally. Finger tapping intact. Sensation: Comments Light touch Intact throughout Pin prick Temperature Vibration Mildly diminished at b/l great toes Proprioception Gait: Increased effort with moving from sitting to standing with bilateral arm assistance. Unable to move from sitting to standing without assistance. Normal stride length and balance. Data Review: CBC: Lab Results Component Value Date WBC 11.71 (H) 10/30/2022 HGB 11.7 10/30/2022 HCT 35.8 10/30/2022 PLATELET 265 10/30/2022 MCV 82.3 10/30/2022 Chem: Lab Results Component Value Date SODIUM 139 10/30/2022 POTASSIUM 3.3 (L) 10/30/2022 CHLORIDE 108 10/30/2022 CO2 21 10/30/2022 BUN 11 10/30/2022 CREATSERUM 0.57 10/30/2022 GLUCOSE 89 10/30/2022 Coags: Ptt/Pt/Inr: 31.1/14.2/1.1 (10/30 0102) Micro: No results found for: CULTURE Imaging / Procedures: Chest Xray (10/20/22): Right lung volume diminished with patchy mid lung opacities. Atelectasis or developing infection are considerations in the appropriate clinical setting. MRI Brain w/w/o contrast (08/01/22): Normal MRI of the brain with and without contrast. MRI C-spine w/w/o contrast (08/01/22): 1. Normal appearance of the cervical and thoracic spinal cord. Negative study. 2. Incidental 9 mm osseous lesion in the parasymphysis of the left hemimandible which is most likely a odontogenic inflammatory lesion but otherwise not characterized on this exam. 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 Yesterday, she lost consciousness and fell while watering plants. She does not recall the event or any inciting factors, but her father reported no jerking prior. She returned to baseline immediately. She reports frequent falling with muscle weakness and standing which requires help from her parents to shower. About 20 minutes later while sitting in a recliner, she felt a seizure coming on with generalized tremulousness and palpitations. She called for her father to bring her rescue intranasal diazepam, then lost consciousness and had full body shaking and stiffening for 2-3 minutes, associated with cyanosis, tongue biting, and urinary incontinence. A state of agitation and combativeness followed for 3- 4 minutes, and resulted in a large bruise on her left leg. Then, she came to and reported hours of confusion and fatigue. 1. Intractable generalized epilepsy: Differential includes intractable epilepsy due to inadequate AED titration and provoked by sleep deprivation. Description of events with associated tongue biting, urinary incontinence, and cyanosis and history of EEG generalized discharges support epileptic nature of event. The event was likely triggered by sleep deprivation and possible infectious cause due to CXR. Breakthrough seizures while on2 therapeutic doses of ASD is concerning for medication refractory epilepsy. Other considerations include infectious cause due to CXR with patchy opacities. Less likely due to negative URI and GI symptoms, besides weakness and chills, and SOB. UA results pending. Also considered metabolic derangement, but less likely due to labs within normal limits. Intoxication also considered, UDS pending. Recommend patient to f/u outpatient for seizure classification. If EEG findings support a generalized seizure, then Trileptal could be worsening symptoms of seizures. 2. Proximal weakness Proximal weakness on exam concerning for etiology other than known Myasthenia Gravis. On exam, ptosis, facial weakness,and difficulty swallowing and positive AChR antibodies suggest Myasthenia symptoms worsening. Proximal weakness concerning for possible myopathy or myositis. Recommend CK to rule out any other cause for weakness. Follow up outpatient to manage Myasthenia. Chronic Conditions: -Anxiety: continue home lexapro 10 mg daily Recommendations Diagnostic Workup: 1. rEEG 2. CK labs 3. NIF/VC monitoring Medications: 1. Increase lamotrigine to 150 qAM and 250 qPM 2. Continue Oxcarbazepine 150 qd and zonegram 200 qAM and 300 qPM 3. Consider weaning carbamazepine outpatient pending rEEG results 4. Start folic acid to prevent AED complications Non-pharmacological: 1. Outpatient EEG 2. Seizure precautions Consultations/Referrals/Follow-Up: 1. F/u with outpatient neuromuscular clinic 2. F/u with outpatient epilepsy clinic for potential seizure monitoring and classification Discussed with Dr. Conway, attending physician. Waleska Turpin, MS3 [facility]06-30-2023 Note* Medical Student - Waleska Turpin - 10/30/2022 7:43 AM EDT Images from the original note were not included. Inpatient Neurology Consultation Note Physician: Waleska Turpin MS3 Patient: Doug Flanagan, 1990, [id number] ADMIT DATE: 10/29/2022 Date of face to face patient encounter: 10/30/2022 Requesting Provider Adolfo Flores MD Reason for Consultation 32 yo F with hx of seizures and MG on Ultomiris. Can you assist with titration of AEDs and starting EEG? 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 Yesterday, she lost consciousness and fell while watering plants. She does not recall the event or any inciting factors, but her father reported no jerking prior. She returned to baseline immediately. She reports frequent falling with muscle weakness and standing which requires help from her parents to shower. About 20 minutes later while sitting in a recliner, she felt a seizure coming on with generalized tremulousness and palpitations. She called for her father to bring her rescue intranasal diazepam, then lost consciousness and had full body shaking and stiffening for 2-3 minutes, associated with cyanosis, tongue biting, and urinary incontinence. A state of agitation and combativeness followed for 3- 4 minutes, and resulted in a large bruise on her left leg. Then, she came to and reported hours of confusion and fatigue. She then was transported to the ED via EMS where she had a similar episode.She was treated with ativan and reports that the episode resolved with a sternal rub. Pt reports adherence to her medications. Reports palpitations and chills on her lower limbs for multiple days, but no fever, cough, diarrhea, abdominal pain. Endorses SOB at rest and exertion, musclesoreness/weakness, and dysphagia while chewing food. Patient reported some sleep deprivation the evening prior to seizures. Seizure History: Her first seizure was at age 11 but reports episodes of staring at ages 11-12. Last seizure occurred 07/2022 following plasma exchange treatment for Myasthenia Gravis. Typically has no aura with seizures. No history of EGG TRAYER infection. Risk factors include family history of an aunt with a seizure disorder and a fall with loss of consciousness in 5th grade. -Home AED medications: lamotrigine 100 mg QAM, 250 QPM, oxcarbazepine 150 mg at bedtime, [id number] mg daily and 300 mg at bedtime. Myasthenia Gravis Diagnosed 2017. Last seen by [facility] neuromuscular 10/06/2022. AChR ab+. She is status post thymectomy and Soliris.Treated with Ultomiris and port placed in 2021 for PLEX. Has missed 4 months of ultomiris due to insurance billing issues with local neurologist. Has been resumed 08/2022. Has had progressively worsening weakness. At last appointment advised to start Mestinon 30 mg TID. Tried this for 2 weeks which worsened headaches and did not improve weakness. 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 Today, she reports vertical dipoplia, muscle weakness, choking on solid food, and SOB at rest and on exertion. Last Medical and Surgical History: Past Medical History: Diagnosis Date Abnormal Pap smear of cervix 10/06/2022 Bleeding disorder 2020 Blood clot in RUE due to mediport. 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 Other constipation 10/06/2022 Restless legs 10/06/2022 Seizure 2002 Tension-type headache, not intractable 10/06/2022 Past Surgical History: Procedure Laterality Date INSERTION CVC TUNNELED W/ PORT PUMP Right 10/16/2020 R IJ powerport placed by Dr Tevin Malcolm APPENDECTOMY ARTHROSCOPY HIP W/ LABRAL REPAIR Right REPLACEMENT CENTRAL VENOUS ACCESS DEVICE W/ PORT PUMP Right THYMECTOMY 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 Medications: Current Scheduled Medications: apixaban (ELIQUIS) tablet 5 mg, 5 mg, BID Escitalopram (LEXAPRO) tablet 10 mg, 10 mg, QHS lamoTRIgine (laMICtal) tablet 100 mg, 100 mg, Daily lamoTRIgine (laMICtal) tablet 250 mg, 250 mg, QHS OXcarbazepine (TRILEPTAL) tablet 150 mg, 150 mg, QHS rOPINIRole (REQUIP) tablet 1.5 mg, 1.5 mg, QHS zonisamide (ZONEGRAN) capsule 200 mg, 200 mg, Daily And zonisamide (ZONEGRAN) capsule 300 mg, 300 mg, QHS Current PRN Medications: Acetaminophen, 650 mg, Q6H PRN LORazepam, 0.5 mg, TID PRN Melatonin, 6 mg, QHS PRN Ondansetron 4mg/2ml, 4 mg, Q6H PRN Or Ondansetron, 4 mg, Q6H PRN Polyethylene glycol, 17 g, Daily PRN Sodium chloride 0.9%, 250 mL, PRN Allergies: Allergies Allergen Reactions Iodides Pt states she can have a seizure with sea food but has had CT with dye without any problem on numerous occasions Levetiracetam Hallucination Gait instability Hallucinations, suicidal thoughts Phenytoin Other reaction(s): Mental Status Change, Other I go crazy Suicidal Gait instability, n/v Hallucination, vomiting Prochlorperazine Other reaction(s): Intolerance, Other Severe agitation Shellfish-Derived Products Other reaction(s): Other Seizures Seizures, but not IV with contrast Soybean Oil Other reaction(s): Other: See Comments Penicillins Hives and Rash rash Review of Systems: ROS as mentioned in HPI. Physical Exam: Temp: [97.8 F (36.6 C)-98 F (36.7 C)] 97.9 F (36.6 C) Pulse (Heart Rate): [64-78] 72 Resp Rate: [16] 16 BP: (105-113)/(56-67) 113/56 O2 Sat (%): [97 %-100 %] 100 % Weight: [80.6 kg (177 lb 11.1 oz)] 80.6 kg (177 lb 11.1 oz) O2 Device: room air (10/30/22 0729) Body mass index is 31.48 kg/m . Gen: NAD, alert, conversant, HENT: NCAT, normal external appearance of ears and nose Cardio: RR Resp: no increased WOB Ext: warm and well-perfused, no LE edema Skin: No rash, contusion on left proximal leg Neuro: alert and oriented, moving all four extremities Psych: Good eye contact, normal affect, judgment and insight intact to history taking, normal speech and content Neurological Examination Mental status: awake and alert, oriented to person, place, year, and situation. Normal mood and affect. Speech/language: fluent; comprehension intact Cranial nerves: CN II: Visual moore intact to confrontation. PERRL. Normal conjunctivae and lids. chicken sexer III, IV and : extraocular movements intact. No fatigable weakness with upgaze. No nystagmus. Mild eye closure weakness. Double vision and increased pain with upgaze. CN V: Facial sensation is intact to light touch. CN VII: mild b/l facial weakness CN VIII: Hearing is grossly intact. CN IX and X: Soft palate elevates symmetrically in the midline CN XII: Tongue is midline with normal movement; no fasciculations. Motor: Normal bulk and tone. SA EE EF WE WF DI HF KE KF DF PF Right 4+ 4+ 4+ 4+ 4+ 4+ 3 5 4 5 5 Left 4- 4 4 4 4 4 3 4+ 4- 5 5 Reflexes: Right Left Comments Biceps 2 2 Triceps Brachioradialis 2 2 Patellar 2+ 2+ Achilles 2 2 clonus Zamudio Babinski Down Down Coordination: Gtunih-qo-iels intact bilaterally. Finger tapping intact. Sensation: Comments Light touch Intact throughout Pin prick Temperature Vibration Mildly diminished at b/l great toes Proprioception Gait: Increased effort with moving from sitting to standing with bilateral arm assistance. Unable to move from sitting to standing without assistance. Normal stride length and balance. Data Review: CBC: Lab Results Component Value Date WBC 11.71 (H) 10/30/2022 HGB 11.7 10/30/2022 HCT 35.8 10/30/2022 PLATELET 265 10/30/2022 MCV 82.3 10/30/2022 Chem: Lab Results Component Value Date SODIUM 139 10/30/2022 POTASSIUM 3.3 (L) 10/30/2022 CHLORIDE 108 10/30/2022 CO2 21 10/30/2022 BUN 11 10/30/2022 CREATSERUM 0.57 10/30/2022 GLUCOSE 89 10/30/2022 Coags: Ptt/Pt/Inr: 31.1/14.2/1.1 (10/30 0102) Micro: No results found for: CULTURE Imaging / Procedures: Chest Xray (10/20/22): Right lung volume diminished with patchy mid lung opacities. Atelectasis or developing infection are considerations in the appropriate clinical setting. MRI Brain w/w/o contrast (08/01/22): Normal MRI of the brain with and without contrast. MRI C-spine w/w/o contrast (08/01/22): 1. Normal appearance of the cervical and thoracic spinal cord. Negative study. 2. Incidental 9 mm osseous lesion in the parasymphysis of the left hemimandible which is most likely a odontogenic inflammatory lesion but otherwise not characterized on this exam. 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 Yesterday, she lost consciousness and fell while watering plants. She does not recall the event or any inciting factors, but her father reported no jerking prior. She returned to baseline immediately. She reports frequent falling with muscle weakness and standing which requires help from her parents to shower. About 20 minutes later while sitting in a recliner, she felt a seizure coming on with generalized tremulousness and palpitations. She called for her father to bring her rescue intranasal diazepam, then lost consciousness and had full body shaking and stiffening for 2-3 minutes, associated with cyanosis, tongue biting, and urinary incontinence. A state of agitation and combativeness followed for 3- 4 minutes, and resulted in a large bruise on her left leg. Then, she came to and reported hours of confusion and fatigue. 1. Intractable generalized epilepsy: Differential includes intractable epilepsy due to inadequate AED titration and provoked by sleep deprivation. Description of events with associated tongue biting, urinary incontinence, and cyanosis and history of EEG generalized discharges support epileptic nature of event. The event was likely triggered by sleep deprivation and possible infectious cause due to CXR. Breakthrough seizures while on2 therapeutic doses of ASD is concerning for medication refractory epilepsy. Other considerations include infectious cause due to CXR with patchy opacities. Less likely due to negative URI and GI symptoms, besides weakness and chills, and SOB. UA results pending. Also considered metabolic derangement, but less likely due to labs within normal limits. Intoxication also considered, UDS pending. Recommend patient to f/u outpatient for seizure classification. If EEG findings support a generalized seizure, then Trileptal could be worsening symptoms of seizures. 2. Proximal weakness Proximal weakness on exam concerning for etiology other than known Myasthenia Gravis. On exam, ptosis, facial weakness,and difficulty swallowing and positive AChR antibodies suggest Myasthenia symptoms worsening. Proximal weakness concerning for possible myopathy or myositis. Recommend CK to rule out any other cause for weakness. Follow up outpatient to manage Myasthenia. Chronic Conditions: -Anxiety: continue home lexapro 10 mg daily Recommendations Diagnostic Workup: 1. rEEG 2. CK labs 3. NIF/VC monitoring Medications: 1. Increase lamotrigine to 150 qAM and 250 qPM 2. Continue Oxcarbazepine 150 qd and zonegram 200 qAM and 300 qPM 3. Consider weaning carbamazepine outpatient pending rEEG results 4. Start folic acid to prevent AED complications Non-pharmacological: 1. Outpatient EEG 2. Seizure precautions Consultations/Referrals/Follow-Up: 1. F/u with outpatient neuromuscular clinic 2. F/u with outpatient epilepsy clinic for potential seizure monitoring and classification Discussed with Dr. Conway, attending physician. Waleska Turpin, MS3 [facility]06-30-2023 Plan of care note* Plan of Care - Juanito Mirza RN - 10/30/2022 2:27 AM EDT Problem: Patient Care Overview Goal: Plan of Care Review Outcome: Ongoing Goal: Individualization & Mutuality Outcome: Ongoing Goal: Discharge Needs Assessment Outcome: Ongoing Goal: Interdisciplinary Rounds/Family Conf Outcome: Ongoing [facility]06-30-2023 History and physical note* Brianna Chilel MD - 10/30/2022 1:20 AM EDT Internal Medicine Admission History & Physical Patient: Doug Flanagan, 1990, [id number] Physician: Brianna Chilel MD Service: Gen Med 7 Impression/Plan: Doug Flanagan is a 32 y.o. female with history of myasthenia gravis (dx in 2018), epilepsy, and anxiety who presents for breakthrough seizures. Breakthrough seizures, unobserved Patient with history of epilepsy now with breakthrough seizures x3 on 10/29 though not documented onEEG. Last seizure occurred July 2022. Differential for breakthrough seizures include infection, metabolic derangement, intoxication, inadequate AED titration, ingestion vs new dx PNES. - Infectious workup: CXR, UA reflex to culture - UDS - ECG - Continue home AEDs - Lamictal 100 mg AM, 250 mg PM - Trileptal 150 mg daily - Zonegran 200 mg AM, 300 mg PM - Consulted Neurology, appreciate recs - If patient seizes overnight, will stat page Neuro resident infection prevention coordinator - Discussed starting EEG with evening Neurology resident, will defer for now - Seizure precautions - Respiratory parameters q4h (NIF/VC) Hx of Myasthenia Gravis Patient with 5-year hx of MG on Ultomiris now with gradually worsening weakness. She is HDS withoutconcerns for respiratory failure/inability to protect airway, swallowing dysfunction. - Consulted PT/OT - Continue to monitor Chronic conditions Anxiety - Continue home Lexapro 10 mg daily - Continue home Lorazepam 2.5 mg TID prn DVT prophylaxis: Eliquis 2.5 mg BID (taking for chronic clots in port) Diet: DIET REGULAR Disposition: Gen Med 7 service Code status: Full Code Staffed with the attending Dr. Choe. Signed, Brianna Chilel MD PGY-1, Internal Medicine #[id number] Chief Complaint: Breakthrough seizures History of Present Illness: Doug Flanagan is a 32 y.o. female with history of myasthenia gravis (dx in 2018) and epilepsy who presents for 1-day of breakthrough seizures. Earlier this morning (10/29), she states she fell to the ground while looking at her house plants. This episode was observed by her father who said she suddenly zoned out and fell down, started shaking violently and grabbing at things. Following this episode, she ate breakfast but shortly after began having tremors for which she gave herself x1 spray of Valtoco (diazepem). She then reports havvishal ng a grand mal seizure lasting 3 minutes, turning blue for 2 of those minutes per her father's report. Given these repeated episodes, she went to [facility]. At [facility] ED,she had a 2 minute seizure where she bit her tongue and was given ativan. CT brain without acute processes. She was transferred to [facility] for further workup of her breakthrough seizures. On admission to [facility] vitals wnl, chem and cbc wnl. Her last reported seizure was in July 2022 following her last PLEX session. She states does not have any recollection of her seizures and does not experience any auras. Shestates her seizures began when she was 11 years old. Since then, she has trialed multiple seizure medications including Keppra, Depakote, Lamictal but experienced side effects. Her current regimen includes lamotrigine, oxcarbazepine, zonegran, Valtoco. She denies fever, vomiting, abdominal pain, shortness of breath, cough, rhinorrhea, diarrhea, urinary symptoms. She endorses R sided headache, facial and extremity weakness, nausea, and constipation. Of note, she was first diagnosed with MG in 2018 s/p thymectomy and Soliris. She states she failed multiple MG medications and was ultimately put on Ultomiris ([id number]) with port placement in 2021 for PLEX treatment. Since May 2022, she states she missed 4 months of Ultomiris due to insurance billing issues w/ her local neurologist. Ultomiris resumed in August 2022. Despite this, she hs been experiencing gradually worsening weakness with repeated falls down stairs, inability to grasp items at home, and difficulty brushing hair. When asked what she believes is contributing to her seizures and weakness, she shares worries aboutearly signs of ALS, LEMS, Parkinson's disease. Of note, she recently saw Dr. Mejias with [facility] Neurology on 10/06/2022 who suggested Mestinon 30 mg TID which the patient did not start. Medical/Surgical History: Past Medical History: Diagnosis Date Abnormal Pap smear of cervix 10/06/2022 Bleeding disorder 2020 Blood clot in RUE due to mediport. 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 She has never used smokeless tobacco. She reports that she does not drink alcohol and does not use drugs. Family History: family history includes Multiple Sclerosis in her sister; No known problems in her brother, father,and mother. Medications: Prior to Admission Medications Prescriptions Escitalopram 10 MG tablet Sig: Take 1 tablet by mouth at bedtime. LORazepam 0.5 MG tablet Sig: Take 0.5-1 tablets by mouth 3 times daily as needed. LamoTRIgine 100 MG Tab SR 24 HR Sig: Take 1 tablet by mouth daily. LamoTRIgine 200 MG Tab SR 24 HR Sig: Take 1 tablet by mouth Every night. Levonorgestrel (Mirena, 52 MG,) 20 MCG/DAY Si Intra Uterine Device by Intrauterine route once. OXcarbazepine 150 MG tablet Sig: Take 1 tablet by mouth at bedtime. Ravulizumab-cwvz (Ultomiris) 300 MG/30ML Solution Si mL by Intravenous route every 56 days. Valtoco 10 MG Dose 10 MG/0.1ML Liquid Si mg by Nasal route as needed. apixaban 5 MG tablet Sig: Take 1 tablet by mouth 2 times daily. rOPINIRole 1 MG tablet Sig: Take 1.5 tablets by mouth Every night. zonisamide 100 MG capsule Sig: Take by mouth 2 times daily. 2 caps in the am , 3 caps at bedtime Facility-Administered Medications: None Allergies: Allergies Allergen Reactions Iodides Pt states she can have a seizure with sea food but has had CT with dye without any problem on numerous occasions Levetiracetam Hallucination Gait instability Hallucinations, suicidal thoughts Phenytoin Other reaction(s): Mental Status Change, Other I go crazy Suicidal Gait instability, n/v Hallucination, vomiting Prochlorperazine Other reaction(s): Intolerance, Other Severe agitation Shellfish-Derived Products Other reaction(s): Other Seizures Seizures, but not IV with contrast Soybean Oil Other reaction(s): Other: See Comments Penicillins Hives and Rash rash Review of Systems: Review of Systems Constitutional: Positive for activity change and fatigue. Negative for appetite change and fever. HENT: Negative for voice change. Respiratory: Negative for cough and shortness of breath. Cardiovascular: Negative for chest pain. Gastrointestinal: Positive for constipation and nausea. Negative for abdominal distention and abdominal pain. Endocrine: Positive for cold intolerance. Genitourinary: Negative. Musculoskeletal: Negative for arthralgias. Skin: Negative. Neurological: Positive for seizures and weakness. Negative for dizziness and speech difficulty. Physical Exam: Vitals: 10/29/22 2341 BP: 105/62 Pulse: 64 Resp: 16 Temp: 97.8 F (36.6 C) SpO2: 97% Gen: NAD, appears in no acute distress Eyes: EOMI, no scleral icterus ENT: MMM, trachea midline Resp: CTAB, normal respiratory effort Cardio: RRR, normal S1/S2, no M/R/G, no SRINIVASAN GI: S/NT/ND, NBS MSK: No joint effusions or erythema Skin: No jaundice or rash Neuro: A&Ox3, no focal deficits, lower extremity strength 3/5, CN II-XII in tact. Psych: Cooperative, affect congruent with mood Data Review: WBC/Hgb/Hct/Plts: 11.71/11.7/35.8/265 (10/30 101) Na/K+/Phos/Mg/Ca: 139/3.3/3.6/1.7/8.8 (10/30 101) Bun/Creat/Cl/CO2/Glucose: 11/0.57/108/21/89 (10/30 101) Ptt/Pt/Inr: 31.1/14.2/1.1 (10/30 101) Associated attestation - Adolfo Flores MD - 10/31/2022 3:30 PM EDT Attending Attestation: I have personally seen and examined Doug Flanagan and I agree with the physical exam as stated below. I have personally reviewed all available clinical data related to today's encounter including, butnot limited to, radiology images and reports, laboratory data, and procedure reports. I have been fully involved in formulation of the assessment and plan and agree with the resident or BETTINA findings and plan of care as documented with any exceptions or additions noted below. Transferred from OSH for neuro eval for breakthrough seizures and uncontrolled MG after being off of Ultomiris for a few months (now back on it). Do not think she has a PNA, nor do I see a clear infectious etiology but will do a workup to r/o infection. Also check CK/myositis panel. Appreciate neuro taking the lead on MG/seizures. Signed, Adolfo Flores MD [facility]06-30-2023 History and physical note* Brianna Chilel MD - 10/30/2022 1:20 AM EDT Internal Medicine Admission History & Physical Patient: Doug Flanagan, 1990, [id number] Physician: Brianna Chilel MD Service: Gen Med 7 Impression/Plan: Doug Flanagan is a 32 y.o. female with history of myasthenia gravis (dx in 2017), epilepsy, and anxiety who presents for breakthrough seizures. Breakthrough seizures, unobserved Patient with history of epilepsy now with breakthrough seizures x3 on 10/29 though not documented onEEG. Last seizure occurred July 2022. Differential for breakthrough seizures include infection, metabolic derangement, intoxication, inadequate AED titration, ingestion vs new dx PNES. - Infectious workup: CXR, UA reflex to culture - UDS - ECG - Continue home AEDs - Lamictal 100 mg AM, 250 mg PM - Trileptal 150 mg daily - Zonegran 200 mg AM, 300 mg PM - Consulted Neurology, appreciate recs - If patient seizes overnight, will stat page Neuro resident infection prevention coordinator - Discussed starting EEG with evening Neurology resident, will defer for now - Seizure precautions - Respiratory parameters q4h (NIF/VC) Hx of Myasthenia Gravis Patient with 5-year hx of MG on Ultomiris now with gradually worsening weakness. She is HDS withoutconcerns for respiratory failure/inability to protect airway, swallowing dysfunction. - Consulted PT/OT - Continue to monitor Chronic conditions Anxiety - Continue home Lexapro 10 mg daily - Continue home Lorazepam 2.5 mg TID prn DVT prophylaxis: Eliquis 2.5 mg BID (taking for chronic clots in port) Diet: DIET REGULAR Disposition: Gen Med 7 service Code status: Full Code Staffed with the attending Dr. Choe. Signed, Brianna Chilel MD PGY-1, Internal Medicine #[id number] Chief Complaint: Breakthrough seizures History of Present Illness: Doug Flanagan is a 32 y.o. female with history of myasthenia gravis (dx in 2018) and epilepsy who presents for 1-day of breakthrough seizures. Earlier this morning (10/29), she states she fell to the ground while looking at her house plants. This episode was observed by her father who said she suddenly zoned out and fell down, started shaking violently and grabbing at things. Following this episode, she ate breakfast but shortly after began having tremors for which she gave herself x1 spray of Valtoco (diazepem). She then reports mary barreto a grand mal seizure lasting 3 minutes, turning blue for 2 of those minutes per her father's report. Given these repeated episodes, she went to [facility]. At [facility] ED,she had a 2 minute seizure where she bit her tongue and was given ativan. CT brain without acute processes. She was transferred to [facility] for further workup of her breakthrough seizures. On admission to [facility] vitals wnl, chem and cbc wnl. Her last reported seizure was in July 2022 following her last PLEX session. She states does not have any recollection of her seizures and does not experience any auras. Shestates her seizures began when she was 11 years old. Since then, she has trialed multiple seizure medications including Keppra, Depakote, Lamictal but experienced side effects. Her current regimen includes lamotrigine, oxcarbazepine, zonegran, Valtoco. She denies fever, vomiting, abdominal pain, shortness of breath, cough, rhinorrhea, diarrhea, urinary symptoms. She endorses R sided headache, facial and extremity weakness, nausea, and constipation. Of note, she was first diagnosed with MG in 2018 s/p thymectomy and Soliris. She states she failed multiple MG medications and was ultimately put on Ultomiris (ravulizumab-cwvz) with port placement in 2021 for PLEX treatment. Since May 2022, she states she missed 4 months of Ultomiris due to insurance billing issues w/ her local neurologist. Ultomiris resumed in August 2022. Despite this, she hs been experiencing gradually worsening weakness with repeated falls down stairs, inability to grasp items at home, and difficulty brushing hair. When asked what she believes is contributing to her seizures and weakness, she shares worries aboutearly signs of ALS, LEMS, Parkinson's disease. Of note, she recently saw Dr. Mejias with [facility] on 10/06/2022 who suggested Mestinon 30 mg TID which the patient did not start. Medical/Surgical History: Past Medical History: Diagnosis Date Abnormal Pap smear of cervix 10/06/2022 Bleeding disorder 2020 Blood clot in RUE due to mediport. 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 She has never used smokeless tobacco. She reports that she does not drink alcohol and does not use drugs. Family History: family history includes Multiple Sclerosis in her sister; No known problems in her brother, father,and mother. Medications: Prior to Admission Medications Prescriptions Escitalopram 10 MG tablet Sig: Take 1 tablet by mouth at bedtime. LORazepam 0.5 MG tablet Sig: Take 0.5-1 tablets by mouth 3 times daily as needed. LamoTRIgine 100 MG Tab SR 24 HR Sig: Take 1 tablet by mouth daily. LamoTRIgine 200 MG Tab SR 24 HR Sig: Take 1 tablet by mouth Every night. Levonorgestrel (Mirena, 52 MG,) 20 MCG/DAY Si Intra Uterine Device by Intrauterine route once. OXcarbazepine 150 MG tablet Sig: Take 1 tablet by mouth at bedtime. Ravulizumab-cwvz (Ultomiris) 300 MG/30ML Solution Si mL by Intravenous route every 56 days. Valtoco 10 MG Dose 10 MG/0.1ML Liquid Si mg by Nasal route as needed. apixaban 5 MG tablet Sig: Take 1 tablet by mouth 2 times daily. rOPINIRole 1 MG tablet Sig: Take 1.5 tablets by mouth Every night. zonisamide 100 MG capsule Sig: Take by mouth 2 times daily. 2 caps in the am , 3 caps at bedtime Facility-Administered Medications: None Allergies: Allergies Allergen Reactions Iodides Pt states she can have a seizure with sea food but has had CT with dye without any problem on numerous occasions Levetiracetam Hallucination Gait instability Hallucinations, suicidal thoughts Phenytoin Other reaction(s): Mental Status Change, Other I go crazy Suicidal Gait instability, n/v Hallucination, vomiting Prochlorperazine Other reaction(s): Intolerance, Other Severe agitation Shellfish-Derived Products Other reaction(s): Other Seizures Seizures, but not IV with contrast Soybean Oil Other reaction(s): Other: See Comments Penicillins Hives and Rash rash Review of Systems: Review of Systems Constitutional: Positive for activity change and fatigue. Negative for appetite change and fever. HENT: Negative for voice change. Respiratory: Negative for cough and shortness of breath. Cardiovascular: Negative for chest pain. Gastrointestinal: Positive for constipation and nausea. Negative for abdominal distention and abdominal pain. Endocrine: Positive for cold intolerance. Genitourinary: Negative. Musculoskeletal: Negative for arthralgias. Skin: Negative. Neurological: Positive for seizures and weakness. Negative for dizziness and speech difficulty. Physical Exam: Vitals: 10/29/22 2341 BP: 105/62 Pulse: 64 Resp: 16 Temp: 97.8 F (36.6 C) SpO2: 97% Gen: NAD, appears in no acute distress Eyes: EOMI, no scleral icterus ENT: MMM, trachea midline Resp: CTAB, normal respiratory effort Cardio: RRR, normal S1/S2, no M/R/G, no SRINIVASAN GI: S/NT/ND, NBS MSK: No joint effusions or erythema Skin: No jaundice or rash Neuro: A&Ox3, no focal deficits, lower extremity strength 3/5, CN II-XII in tact. Psych: Cooperative, affect congruent with mood Data Review: WBC/Hgb/Hct/Plts: 11.71/11.7/35.8/265 (10/30 101) Na/K+/Phos/Mg/Ca: 139/3.3/3.6/1.7/8.8 (10/30 101) Bun/Creat/Cl/CO2/Glucose: 11/0.57/108/21/89 (10/30 101) Ptt/Pt/Inr: 31.1/14.2/1.1 (10/30 101) Associated attestation - Adolfo Flores MD - 10/31/2022 3:30 PM EDT Attending Attestation: I have personally seen and examined Doug Flanagan and I agree with the physical exam as stated below. I have personally reviewed all available clinical data related to today's encounter including, butnot limited to, radiology images and reports, laboratory data, and procedure reports. I have been fully involved in formulation of the assessment and plan and agree with the resident or BETTINA findings and plan of care as documented with any exceptions or additions noted below. Transferred from OSH for neuro eval for breakthrough seizures and uncontrolled MG after being off of Ultomiris for a few months (now back on it). Do not think she has a PNA, nor do I see a clear infectious etiology but will do a workup to r/o infection. Also check CK/myositis panel. Appreciate neuro taking the lead on MG/seizures. Signed, Adolfo Flores MD [facility] History and physical note* Brianna Chilel MD - 10/30/2022 1:20 AM EDT Internal Medicine Admission History & Physical Patient: Doug Flanagan, 1990, [id number] Physician: Brianna Chilel MD Service: Gen Med 7 Impression/Plan: Doug Flanagan is a 32 y.o. female with history of myasthenia gravis (dx in 2018), epilepsy, and anxiety who presents for breakthrough seizures. Breakthrough seizures, unobserved Patient with history of epilepsy now with breakthrough seizures x3 on 10/29 though not documented onEEG. Last seizure occurred July 2022. Differential for breakthrough seizures include infection, metabolic derangement, intoxication, inadequate AED titration, ingestion vs new dx PNES. - Infectious workup: CXR, UA reflex to culture - UDS - ECG - Continue home AEDs - Lamictal 100 mg AM, 250 mg PM - Trileptal 150 mg daily - Zonegran 200 mg AM, 300 mg PM - Consulted Neurology, appreciate recs - If patient seizes overnight, will stat page Neuro resident infection prevention coordinator - Discussed starting EEG with evening Neurology resident, will defer for now - Seizure precautions - Respiratory parameters q4h (NIF/VC) Hx of Myasthenia Gravis Patient with 5-year hx of MG on Ultomiris now with gradually worsening weakness. She is HDS withoutconcerns for respiratory failure/inability to protect airway, swallowing dysfunction. - Consulted PT/OT - Continue to monitor Chronic conditions Anxiety - Continue home Lexapro 10 mg daily - Continue home Lorazepam 2.5 mg TID prn DVT prophylaxis: Eliquis 2.5 mg BID (taking for chronic clots in port) Diet: DIET REGULAR Disposition: Gen Med 7 service Code status: Full Code Staffed with the attending Dr. Choe. Signed, Brianna Chilel MD PGY-1, Internal Medicine #[id number] Chief Complaint: Breakthrough seizures History of Present Illness: Doug Flanagan is a 32 y.o. female with history of myasthenia gravis (dx in 2018) and epilepsy who presents for 1-day of breakthrough seizures. Earlier this morning (10/29), she states she fell to the ground while looking at her house plants. This episode was observed by her father who said she suddenly zoned out and fell down, started shaking violently and grabbing at things. Following this episode, she ate breakfast but shortly after began having tremors for which she gave herself x1 spray of Valtoco (diazepem). She then reports havi ng a grand mal seizure lasting 3 minutes, turning blue for 2 of those minutes per her father's report. Given these repeated episodes, she went to [facility]. At [facility] ED,she had a 2 minute seizure where she bit her tongue and was given ativan. CT brain without acute processes. She was transferred to [facility] for further workup of her breakthrough seizures. On admission to [facility] vitals wnl, chem and cbc wnl. Her last reported seizure was in July 2022 following her last PLEX session. She states does not have any recollection of her seizures and does not experience any auras. Shestates her seizures began when she was 11 years old. Since then, she has trialed multiple seizure medications including Keppra, Depakote, Lamictal but experienced side effects. Her current regimen includes lamotrigine, oxcarbazepine, zonegran, Valtoco. She denies fever, vomiting, abdominal pain, shortness of breath, cough, rhinorrhea, diarrhea, urinary symptoms. She endorses R sided headache, facial and extremity weakness, nausea, and constipation. Of note, she was first diagnosed with MG in 2018 s/p thymectomy and Soliris. She states she failed multiple MG medications and was ultimately put on Ultomiris (ravulizumab-cwvz) with port placement in 2021 for PLEX treatment. Since May 2022, she states she missed 4 months of Ultomiris due to insurance billing issues w/ her local neurologist. Ultomiris resumed in August 2022. Despite this, she hs been experiencing gradually worsening weakness with repeated falls down stairs, inability to grasp items at home, and difficulty brushing hair. When asked what she believes is contributing to her seizures and weakness, she shares worries aboutearly signs of ALS, LEMS, Parkinson's disease. Of note, she recently saw Dr. Mejias with [facility] on 10/06/2022 who suggested Mestinon 30 mg TID which the patient did not start. Medical/Surgical History: Past Medical History: Diagnosis Date Abnormal Pap smear of cervix 10/06/2022 Bleeding disorder 2020 Blood clot in RUE due to mediport. 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 She has never used smokeless tobacco. She reports that she does not drink alcohol and does not use drugs. Family History: family history includes Multiple Sclerosis in her sister; No known problems in her brother, father,and mother. Medications: Prior to Admission Medications Prescriptions Escitalopram 10 MG tablet Sig: Take 1 tablet by mouth at bedtime. LORazepam 0.5 MG tablet Sig: Take 0.5-1 tablets by mouth 3 times daily as needed. LamoTRIgine 100 MG Tab SR 24 HR Sig: Take 1 tablet by mouth daily. LamoTRIgine 200 MG Tab SR 24 HR Sig: Take 1 tablet by mouth Every night. Levonorgestrel (Mirena, 52 MG,) 20 MCG/DAY Si Intra Uterine Device by Intrauterine route once. OXcarbazepine 150 MG tablet Sig: Take 1 tablet by mouth at bedtime. Ravulizumab-cwvz (Ultomiris) 300 MG/30ML Solution Si mL by Intravenous route every 56 days. Valtoco 10 MG Dose 10 MG/0.1ML Liquid Si mg by Nasal route as needed. apixaban 5 MG tablet Sig: Take 1 tablet by mouth 2 times daily. rOPINIRole 1 MG tablet Sig: Take 1.5 tablets by mouth Every night. zonisamide 100 MG capsule Sig: Take by mouth 2 times daily. 2 caps in the am , 3 caps at bedtime Facility-Administered Medications: None Allergies: Allergies Allergen Reactions Iodides Pt states she can have a seizure with sea food but has had CT with dye without any problem on numerous occasions Levetiracetam Hallucination Gait instability Hallucinations, suicidal thoughts Phenytoin Other reaction(s): Mental Status Change, Other I go crazy Suicidal Gait instability, n/v Hallucination, vomiting Prochlorperazine Other reaction(s): Intolerance, Other Severe agitation Shellfish-Derived Products Other reaction(s): Other Seizures Seizures, but not IV with contrast Soybean Oil Other reaction(s): Other: See Comments Penicillins Hives and Rash rash Review of Systems: Review of Systems Constitutional: Positive for activity change and fatigue. Negative for appetite change and fever. HENT: Negative for voice change. Respiratory: Negative for cough and shortness of breath. Cardiovascular: Negative for chest pain. Gastrointestinal: Positive for constipation and nausea. Negative for abdominal distention and abdominal pain. Endocrine: Positive for cold intolerance. Genitourinary: Negative. Musculoskeletal: Negative for arthralgias. Skin: Negative. Neurological: Positive for seizures and weakness. Negative for dizziness and speech difficulty. Physical Exam: Vitals: 10/29/22 2341 BP: 105/62 Pulse: 64 Resp: 16 Temp: 97.8 F (36.6 C) SpO2: 97% Gen: NAD, appears in no acute distress Eyes: EOMI, no scleral icterus ENT: MMM, trachea midline Resp: CTAB, normal respiratory effort Cardio: RRR, normal S1/S2, no M/R/G, no SRINIVASAN GI: S/NT/ND, NBS MSK: No joint effusions or erythema Skin: No jaundice or rash Neuro: A&Ox3, no focal deficits, lower extremity strength 3/5, CN II-XII in tact. Psych: Cooperative, affect congruent with mood Data Review: WBC/Hgb/Hct/Plts: 11.71/11.7/35.8/265 (10/30 101) Na/K+/Phos/Mg/Ca: 139/3.3/3.6/1.7/8.8 (10/30 101) Bun/Creat/Cl/CO2/Glucose: 11/0.57/108/21/89 (10/30 101) Ptt/Pt/Inr: 31.1/14.2/1.1 (10/30 101) Associated attestation - Adolfo Flores MD - 10/31/2022 3:30 PM EDT Attending Attestation: I have personally seen and examined Doug Flanagan and I agree with the physical exam as stated below. I have personally reviewed all available clinical data related to today's encounter including, butnot limited to, radiology images and reports, laboratory data, and procedure reports. I have been fully involved in formulation of the assessment and plan and agree with the resident or BETTINA findings and plan of care as documented with any exceptions or additions noted below. Transferred from OSH for neuro eval for breakthrough seizures and uncontrolled MG after being off of Ultomiris for a few months (now back on it). Do not think she has a PNA, nor do I see a clear infectious etiology but will do a workup to r/o infection. Also check CK/myositis panel. Appreciate neuro taking the lead on MG/seizures. Signed, Adolfo Flores MD documented in this encounterU [facility]* Nursing Notes - Juanito Mirza RN - 10/30/2022 12:23 AM EDT On admission to [facility], from OSH a dual RN initial assessment of skin condition was performed by VANESSA Morrow and Pooja MENDEZ. Skin Assessment: WDL LDA Added:Tc Mirza RN [facility]06-29-2023 Nurse Note* Nursing Notes - Juanito Mirza RN - 10/29/2022 10:43 PM EDT [employer] paged Gen Med 7 for orders and to come see patient. [facility]06-29-2023 Discharge summary Author Sai Feldman [facility] October 29, 2022 4:50pm Note Date/Time October 29, 2022 11:4 5am [facility] Medical Records Department [address] [place] [address] Emergency Department Summary 10/29/22 MR#: [id number] Acct: [id number] Name: DOUG FLANAGAN Rep #:[id number] : 1990 32 From: Sai Wilson PCP: Dr. Donna Perdomo MD Status:REG E R Location: ED HPI <[facility] - Last Filed: 10/29/22 14:18> History of Present Illness Chief Complaint: Seizure Narrative Narrative: Patient is a 32-year-old female with history of anxiety, depression, epilepsy since age 11, myasthenia gravis since 2019 who does receive infusions every 8 weeks last infusion was yesterday. Patient takes Lamictal zonisamide oxcarbazepine for seizures. Patient presents to the emergency department for a breakthrough seizure. Patient denies any recent urinary symptoms, patient states that she has been having frequent falls secondary to weakness in her legshowever this has been ongoing. She has seen multiple specialist including [facility]. There is concern regarding psychiatric issues versus pathologic issues. Patient is alert and orient x4 on arrival and back to baseline. She is here with her mother. The seizure was witnessed by her fatherwho states that he caught her, patient did not hit the ground. Patient is back to baseline. Last seizure was August 07 and she was brought here. REPLACED BY [facility] <BECCA Heart - Last Filed: 10/29/22 14:18> REPLACED BY [facility] Medical History Anemia Chest pain Difficulty chewing Difficulty swallowing History of stress test Hx of peripheral vascular disease Injury of head and neck Leg cramps Migraine headache Myasthenia gravis Non-smoker Normal echocardiogram (~05/18/16) Seizures Shortness of breath on exertion Home Medications zonisamide 100 mg capsule 200 mg PO 0800 seizures 12/23/17 [History Last Taken 10/17/21] lorazepam 1 mg tablet 1 mg PO DAILY PRN PRN Seizure 01/07/18 [History Last Taken 05/03/18] zonisamide 100 mg capsule 300 mg PO QHS seizures 03/26/19 [History Last Taken 11/01/20 20:00] lamotrigine 200 mg tablet,extended release 24 hr 100 mg PO 0800 seizures 10/14/20 [History Last Taken 10/17/21] lamotrigine 250 mg tablet,extended release 24 hr 200 mg PO QHS seizures 10/14/20[History Last Taken 11/01/20 20:00] levonorgestrel 21 mcg/24 hours (8 yrs) 52 mg intrauterine device (Mirena) 20 mcgintrauterine UD control 10/14/20 [History Last Taken Unknown] oxcarbazepine 150 mg tablet 150 mg PO QHS SEIZURES 10/14/20 [History Last Taken 11/01/20 20:00] apixaban 5 mg tablet (Eliquis) 5 mg PO BID blood clot 11/02/20 [History Last Taken 10/13/21] escitalopram oxalate 10 mg tablet (Lexapro) 10 mg PO QHS 10/09/21 [History Last Taken Unknown] diazepam 10 mg/spray (0.1 mL) nasal spray (Valtoco) 10 mg intranasal PRN PRN Seizures 08/08/22 [History Last Taken Unknown] Allergy/AdvReac Type Severity Reaction Status Date / Time levetiracetam [From [facility]] Allergy Other Verified 10/29/22 11:15 Penicillins Allergy Rash Verified 10/29/22 11:15 phenytoin [From Dilantin] Allergy PT UNSURE Verified 10/29/22 11:15 OF REACTION prochlorperazine Allergy Other Verified 10/29/22 11:15 [From Compazine] shellfish derived Allergy Other Verified 10/29/22 11:15 soy AdvReac NEEDS Verified 10/29/22 11:15 FOLLOW-UP Surgical History Hx of appendectomy Hx of thymectomy Hx of total hip arthroplasty Social History household members: spouse Smoking Status: Never smoker second hand exposure: Yes alcohol intake: never substance use type: does not use ROS <BECCA Heart - Last Filed: 10/29/22 14:18> ROS ED ROS Narrative Constitutional: Negative for fever, chills, weight loss. Positive for chronic weakness Eyes: Negative for vision loss, vision change, double vision ENT: Negative for any sore throat, ear pain, congestion Cardiovascular: Negative for any tightness, palpitations. Positive for chest pain Respiratory: Negative for any cough, sputum production, hemoptysis, dyspnea, dyspnea on exertion, orthopnea Gastrointestinal: Negative for any abdominal pain, nausea, vomiting, diarrhea, constipation, blood in stool, blood in vomit : Negative for any urinary frequency, dysuria, retention, blood in urine Muscle skeletal: Negative for any muscle joint pain, stiffness, myalgias, arthralgias, neck pain, back pain Neurological: Negative for any headache, syncope, numbness or tingling, dizziness. Positive for seizures Skin: Negative for any rashes, lumps, itching, abrasions, lacerations Psychiatric: Negative for any depression, anxiety, stress, suicidal ideation, homicidal ideation Hematologic: Negative for any easy bruising, excessive bruising, easy bleeding Allergies: Negative for any eczema, hives, rash EXAM <BECCA Heart - Last Filed: 10/29/22 14:18> Physical Exam Narrative Exam Narrative: Vital signs reviewed. Patient is alert and orient x4, per mom, patient is back to baseline. HEET: Head normocephalic atraumatic, TMs clear bilaterally. Posterior pharynx is clear, moist mucous membranes. Nares clear bilaterally. Pupils equal round reactive light. Neck: Supple with no lymphadenopathy or tenderness. No signs of meningismus, negative jolt sign. Cardiac: Regular rate and rhythm no murmurs gallops or rubs, equal peripheral pulses bilaterally. Respiratory: Lungs clear to auscultation bilaterally. No chest tenderness. Abdomen: Soft, nontender, nondistended. No abdominal bruit or pulsatile masses. No hepatosplenomegaly Extremities: No peripheral edema, no signs of gross trauma or deformity. Activefull range of motion of all extremities. Patient does have some noticeable weakness to the lower extremities however he states this is chronic. Neuro: Cranial nerves II through XII intact, no focal neurological deficits. NIH stroke score 0. Skin: Clean dry and intact with no rash, purpura, petechiae, vesicles or pustules. Backs/flank: No CVA tenderness, no midline spinal tenderness, no deformity. Psych: Normal mood and affect. No SI, HI or acute psychosis. Const Vital Signs: 10/29/22 11:10 10/29/22 13:30 10/29/22 14:15 Temperature 98.0 F Temperature Source Oral Pulse Rate 102 H 107 H 107 H Respiratory Rate 16 24 H 20 H Blood Pressure 124/69 H 112/70 105/68 Blood Pressure Mean 87 82 81 Pulse Ox 100 99 100 Oxygen Delivery Method Room Air 10/29/22 14:30 10/29/22 15:01 Temperature Temperature Source Pulse Rate 102 H 83 Respiratory Rate 16 16 Blood Pressure 106/70 94/61 Blood Pressure Mean 82 72 Pulse Ox 100 Oxygen Delivery Method Positive well nourished and well developed General Appearance ED: well developed <Dr. Sai Feldman, DO - Last Filed: 10/29/22 16:50> Physical Exam Const Vital Signs: 10/29/22 11:10 10/29/22 13:30 10/29/22 14:15 Temperature 98.0 F Temperature Source Oral Pulse Rate 102 H 107 H 107 H Respiratory Rate 16 24 H 20 H Blood Pressure 124/69 H 112/70 105/68 Blood Pressure Mean 87 82 81 Pulse Ox 100 99 100 Oxygen Delivery Method Room Air 10/29/22 14:30 10/29/22 15:01 Temperature Temperature Source Pulse Rate 102 H 83 Respiratory Rate 16 16 Blood Pressure 106/70 94/61 Blood Pressure Mean 82 72 Pulse Ox 100 Oxygen Delivery Method [facility] <Zina EcheverriaBECCA lowry - Last Filed: 10/29/22 14:18> [facility] Lab Data Labs: Laboratory Results - last 24 hr 10/29/22 10/29/22 11:23 13:45 WBC 8.1 RBC 4.74 Hgb 12.8 Hct 40.1 MCV 84.6 MCH 27.0 MCHC 31.9 L RDW Std Deviation 40.2 RDW Coeff of Mariella 13.2 Plt Count 299 MPV 9.5 Immature Gran % (Auto) 0.600 Neut % (Auto) 67.2 Lymph % (Auto) 25.1 Whiteside % (Auto) 4.8 Eos % (Auto) 1.7 Baso % (Auto) 0.6 Absolute Neuts (auto) 5.4 Absolute Lymphs (auto) 2.02 Nucleated RBC % 0 Sodium 139 Potassium 3.4 L Chloride 108 H Carbon Dioxide 23.0 Anion Gap 8 BUN 10 Creatinine 0.80 Estim Creat Clear Calc 81.97 Est GFR (MDRD) Af Amer 106 Est GFR (MDRD) Non-Af 87 BUN/Creatinine Ratio 12.5 Glucose 135 H Calcium 9.1 Total Bilirubin 0.30 AST 11 L ALT 18 Alkaline Phosphatase 97 Total Protein 7.4 Albumin 3.6 Globulin 3.8 Albumin/Globulin Ratio 0.9 Urine Color Yellow Urine Clarity Sl. Cloudy Urine pH 7.0 Ur Specific [place] 1.015 Urine Protein Negative Urine Glucose (UA) Normal Urine Ketones Negative Urine Occult Blood Negative Urine Nitrite Negative Urine Bilirubin Negative Urine Urobilinogen Normal Ur Leukocyte Esterase Negative Urine RBC 0 SEEN Urine WBC 0 SEEN Ur Squamous Epith Cells 0 SEEN Urine Bacteria 0 SEEN Urine Mucus 0 SEEN Urine Test Negative Radiography Diagnostic Testing: Clinical Impression(s) from Imaging Studies Chest X-Ray 10/29/22 11:42 IMPRESSION: No acute abnormality seen. Electronically Signed: Mitchel Conrad MD at 12:26 EDT , Brain CT 10/29/22 12:36 IMPRESSION: Normal unenhanced CT scan of the brain. Electronically Signed: Mitchel Conrad MD at 13:17 EDT , Treatment and Re-Evaluation :: All radiologic examinations were read, reviewed by the emergency department attending. From these reads, a plan of care will be put in place. Patient appears generally well, patient alert orient x4. Patient's neurological dam wasunremarkable, his baseline. Patient received some basic laboratory values as well as a chest x-ray, EKG secondary to intermittent chest pain. Vital signs remained stable. Patient be observed. Patient did have a 1 minute to 2-minute grand mal seizure. Patient is now postictal. Patient was given 1 mg of IV Ativan. Patient will need to be CAT scan secondary to recurrent seizure.Patient's laboratory values show a normal CBC, patient's chemistries were unremarkable. Chest x-ray showed no acute abnormality. Patient's chest x-ray, CT scan of the brain were gross unremarkable. No evidence of any bleeding or intracranial hemorrhage. Patient's urinalysis is negative for any infection. Patient will be loaded with Depakote 20 mg/kg as instructed by [facility] neurologist. Patient is excepted to [facility] and is currently waiting a bed. Differential: Recurrent breakthrough seizures, myasthenia gravis, infection Attending note: Patient seen and evaluated with ion exchange operator. I perform my own [id number] evaluation. I agree with the plan of work-up. Here with mother breakthrough seizure this morning. Patient seizure since 11 years old on current Lamictal and zonisamide with no missed doses per mother. Patient from home mother is primary caregiver. Is followed by Dr. Gilmore locally from neurology. Diagnosis of myasthenia gravis [address] [facility] [address] Dee, recently restarted back on her infusions for myasthenia gravis lasttreatment was yesterday. Patient has been having increasing worsening leg weakness with difficulty walking. Mother reports plans of being referred to another neuromuscular physician for evaluation. This was stated as of yesterday. She was referred to psychiatry for potential psychosomatic disorder. Patient was brought in the ED apparently had another breakthrough seizure before my evaluation. sta. Niesha post Ativan. During my evaluation there is postictal. Moving all 4 extremities. Work-up being initiated with labs repeat CT urine and chest x-ray. Most concerns for recurrent breakthrough seizures which has not happened in the past, will plan to transfer to neurological capable facility. Patient on reevaluation is acting appropriate. The patient will be transferred to [facility]. I was able speak with Dr. Conway who will accept this patient. I spoke with the patient the patient's mother, they are happy with the transfer. The neurologist at [facility] would like me to load the patient up with Depakote 20 mg/kg. This will be completed. Patient will then be transferred to [facility] once to get a bed. Patient stable for transfer <Dr. Sai Feldman, DO - Last Filed: 10/29/22 16:50> [facility] Lab Data Attestation: I reviewed the patient's lab results. Labs: Laboratory Results - last 24 hr 10/29/22 10/29/22 11:23 13:45 WBC 8.1 RBC 4.74 Hgb 12.8 Hct 40.1 MCV 84.6 MCH 27.0 MCHC 31.9 L RDW Std Deviation 40.2 RDW Coeff of Mariella 13.2 Plt Count 299 MPV 9.5 Immature Gran % (Auto) 0.600 Neut % (Auto) 67.2 Lymph % (Auto) 25.1 Whiteside % (Auto) 4.8 Eos % (Auto) 1.7 Baso % (Auto) 0.6 Absolute Neuts (auto) 5.4 Absolute Lymphs (auto) 2.02 Nucleated RBC % 0 Sodium 139 Potassium 3.4 L Chloride 108 H Carbon Dioxide 23.0 Anion Gap 8 BUN 10 Creatinine 0.80 Estim Creat Clear Calc 81.97 Est GFR (MDRD) Af Amer 106 Est GFR (MDRD) Non-Af 87 BUN/Creatinine Ratio 12.5 Glucose 135 H Calcium 9.1 Total Bilirubin 0.30 AST 11 L ALT 18 Alkaline Phosphatase 97 Total Protein 7.4 Albumin 3.6 Globulin 3.8 Albumin/Globulin Ratio 0.9 Urine Color Yellow Urine Clarity Sl. Cloudy Urine pH 7.0 Ur Specific [place] 1.015 Urine Protein Negative Urine Glucose (UA) Normal Urine Ketones Negative Urine Occult Blood Negative Urine Nitrite Negative Urine Bilirubin Negative Urine Urobilinogen Normal Ur Leukocyte Esterase Negative Urine RBC 0 SEEN Urine WBC 0 SEEN Ur Squamous Epith Cells 0 SEEN Urine Bacteria 0 SEEN Urine Mucus 0 SEEN Urine Test Negative Radiography Diagnostic Testing: Clinical Impression(s) from Imaging Studies Chest X-Ray 10/29/22 11:42 IMPRESSION: No acute abnormality seen. Electronically Signed: Mitchel Conrad MD at 12:26 EDT , Brain CT 10/29/22 12:36 IMPRESSION: Normal unenhanced CT scan of the brain. Electronically Signed: Mitchel Conrad MD at 13:17 EDT , Treatment and Re-Evaluation :: All radiologic examinations were read, reviewed by the emergency department attending. From these reads, a plan of care will be put in place. Patient appears generally well, patient alert orient x4. Patient's neurological dam wasunremarkable, his baseline. Patient received some basic laboratory values as well as a chest x-ray, EKG secondary to intermittent chest pain. Vital signs remained stable. Patient be observed. Patient did have a 1 minute to 2-minute grand mal seizure. Patient is now postictal. Patient was given 1 mg of IV Ativan. Patient will need to be CAT scan secondary to recurrent seizure.Patient's laboratory values show a normal CBC, patient's chemistries were unremarkable. Chest x-ray showed no acute abnormality. Patient's chest x-ray, CT scan of the brain interpreted by ED physician and readby radiology were gross unremarkable. No evidence of any bleeding or intracranial hemorrhage. Patient's urinalysis is negative for any infection. Patient will be loaded with Depakote 20 mg/kg as instructed by [facility] neurologist. Patient is excepted to [facility] and is currently waiting a bed. Differential: Recurrent breakthrough seizures, myasthenia gravis, infection Attending note: Patient seen and evaluated with ion exchange operator. I perform my own [id number] evaluation. I agree with the plan of work-up. Here with mother breakthrough seizure this morning. Patient seizure since 11 years old on current Lamictal and zonisamide with no missed doses per mother. Patient from home mother is primary caregiver. Is followed by Dr. Gilmore locally from neurology. Diagnosis of myasthenia gravis [address] [facility] [address] Dee, recently restarted back on her infusions for myasthenia gravis lasttreatment was yesterday. Patient has been having increasing worsening leg weakness with difficulty walking. Mother reports plans of being referred to another neuromuscular physician for evaluation. This was stated as of yesterday. She was referred to psychiatry for potential psychosomatic disorder. Patient was brought in the ED apparently had another breakthrough seizure before my evaluation. sta. Niesha post Ativan. During my evaluation there is postictal. Moving all 4 extremities. Work-up being initiated with labs repeat CT urine and chest x-ray. Most concerns for recurrent breakthrough seizures which has not happened in the past, will plan to transfer to neurological capable facility. Patient on reevaluation is acting appropriate. The patient will be transferred to [facility]. I was able speak with Dr. Cownay who will accept this patient. I spoke with the patient the patient's mother, they are happy with the transfer. The neurologist at [facility] would like me to load the patient up with Depakote 20 mg/kg. This will be completed. Patient will then be transferred to [facility] once to get a bed. Patient stable for transfer Discharge Plan Triage Chief Complaint: Seizure ED Midlevel Provider: Zina Fierro ED Provider: Sai Feldman Dx/Rx/DC Orders Clinical Impression: Breakthrough seizure, Myasthenia gravis, Weakness Prescriptions: No Action zonisamide 100 capsule 200 mg PO 0800 Patient Comments: seizures lorazepam 1 MG tablet 1 mg PO DAILY PRN PRN (Reason: Seizure) Patient Comments: seizures zonisamide 100 MG capsule 300 mg PO QHS Patient Comments: seizures oxcarbazepine 150 mg tablet 150 mg PO QHS Mirena 20 mcg/24 hours (6 yrs) 52 mg Intrauterine Device 20 mcg INTRAUTERINE UD Patient Comments: already placed lamotrigine 200 mg tablet extended release 24hr 100 mg PO 0800 Patient Comments: take 1 tablet by mouth once daily lamotrigine 250 mg tablet extended release 24hr 200 mg PO QHS Patient Comments: take 1 tablet by mouth once daily at bedtime Eliquis 5 mg tablet 5 mg PO BID Patient Comments: TAKE 2 TABLETS BY MOUTH TWICE DAILY FOR 7 DAYS, THEN TAKE 1 TABLET TWICE DAILY escitalopram oxalate [Lexapro] 10 mg Tablet 10 mg PO QHS Valtoco 10 mg/spray (0.1 mL) spray,non-aerosol 10 mg INTRANASAL PRN PRN (Reason: Seizures) Patient Comments: USE DIRECTED NASALLY 1 TO 2 TIMES A WEEK Primary Care Provider: Donna Perdomo Referrals: Donna Perdomo MD [Primary Care Provider] - Disposition Disposition: DC/Tx to Another Type of HCF Discharge Location: [facility] Neuro[facility] What to do if you have Problems For any increased pain, shortness of breath, bleeding, nausea or vomiting, chestpain, or any unexpected problems, contact your Primary Care Provider. Call [facility] ([phone]) or report to the closest Emergency Room. Call 911 if necessary. 10/29/22 1650 <Electronically signed by Sai Wilson> Cosigner Signature (if applicable): CC: Dr. Donna Perdomo MD ~ Signed [facility] Work Phone: [phone] History of Present illness Narrative* Pankaj Mejias MD - 10/06/2022 11:00 AM EDT Thank you for referring Doug Flanagan to the [facility] on 10/06/2022 for evaluation of MG. HISTORY OF PRESENT ILLNESS: As you know, she is a 32 y.o. right handed female who presents with myasthenia gravis which startedin 2018. She started to fall, tripping over her feet. She was dropping things, had diplopia, and slurred speech. She was initially told these sxs psychological. The sxs progressed. 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 She noted difficulty with getting up from the floor. She was diagnosed and followed by Arthur Gilmore MD . She was placed on prednisone. THe seizures worsened and she [place] weaker and had more shaking. She tried mestinon and had a svere migraine and hervision was blurred. On cellcept her sxs worsened. Cellcept was tried with no clear benefit but dosewas uncertain. After the thymectomy, she was started on soliris. But she continued to have episodes of falling anddropping items. She felt like the soliris was wearing off after 1 week. On ultomiris she started doing better. She was able to do many DLS, play with her son, do her hobbies for about 5 months. Then it was stopped because insurance stopped paying for this. She had a crisis and responded to 5 plasmaexchanges ) July 2022. August 28, 2022 she finally received another dose of ultomiris. (She did nothave a booster dose since she was off for 4 months. HEr sxs are worse. She is falling more, choking more, using.her hands. general ADLS etc.. She has also been seen at the [facility] for seizures. 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 Normal appearance of the cervical and thoracic spinal cord. Negative study. 2. Incidental 9 mm osseous lesion in the parasymphysis of the left hemimandible which is most likely a odontogenic inflammatory lesion but otherwise not characterized on this exam. RF 2016 neg TSH 2015 2021 1.780 1.62 B12 2015 528 Immunosupression history: Test name Date Result TPMT Testing (for Imuran) TB skin test Quantiferon Hepatitis B sceen 2022 s AB- pos s-AG- neg Hepatitis C screen Bone density Mycophenolate REMS consent Shringrix menningococal vaccine Yes but not sure which ones PATRICIA virus AB Eye exam PCP prophylaxis Medication name Dates Dose Effective? Complications soliris ultimoris steroids 10-20 (nax) ??Seizures??, increased weakness. mestion Tried 2 doses Migraine blurred vision cellcept 500 mg tabs dosing Not clear No benefit thymectomy 2019 REVIEW OF SYSTEMS: Review of Systems: Weight Loss/gain Diarrhea/Constipation Skin changes Vision loss Nausea Muscle ache/pain + Double vision Walking problems Muscle twitches Hearing loss + Falls Loss of muscle mass +/- Shortness of breath +/- Difficulty chewing/swallowing Depressed mood Cannot lie flat Choking Behavior changes Cannot exercise Bladder/bowel incontinence Memory/thinking problems Fainting Cannot empty bladder Sleep problems Voice changes Sensation changes Sexual function problems =+/- Headaches Heart palpitations Back pain positive if marked, remainder of 14 point ROS negative. 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 Past Surgical History: has a past surgical history that includes appendectomy; arthroscopy hip w/ labral repair (Right); thymectomy transcervical approach robotic; and replacement central venous access device w/ port pump (Right). Medications: Current Outpatient Medications Medication Sig apixaban 5 MG tablet Take 1 tablet by mouth 2 times daily. Escitalopram 10 MG tablet Take 1 tablet by mouth at bedtime. LamoTRIgine 100 MG Tab SR 24 HR Take 1 tablet by mouth daily. LamoTRIgine 200 MG Tab SR 24 HR Take 1 tablet by mouth Every night. Levonorgestrel (Mirena, 52 MG,) 20 MCG/DAY 1 Intra Uterine Device by Intrauterine route once. LORazepam 0.5 MG tablet Take 0.5-1 tablets by mouth 3 times daily as needed. OXcarbazepine 150 MG tablet Take 1 tablet by mouth at bedtime. rOPINIRole 1 MG tablet Take 1.5 tablets by mouth Every night. Valtoco 10 MG Dose 10 MG/0.1ML Liquid 10 mg by Nasal route as needed. zonisamide 100 MG capsule Take by mouth 2 times daily. 2 caps in the am , 3 caps at bedtime Ravulizumab-cwvz (Ultomiris) 300 MG/30ML Solution 130 mL by Intravenous route every 56 days. Social History: reports that she has never smoked. She has never used smokeless tobacco. She reports that she does not drink alcohol and does not use drugs. Family History: family history includes Multiple Sclerosis in her sister; No known problems in her brother, father, and mother. PHYSICAL EXAM: Physical Examination: BP 128/80 (BP Location: Left arm, BP Position: Sitting) Pulse 117 Ht 1.6 m (5' 3) Wt 80.6 kg(177 lb 12.8 oz) BMI 31.50 kg/m Smoking Status Never GENERAL: Well developed, well nourished in no acute distress. HEENT: normocephalic, atraumatic, no oral lesions or tongue lacerations, mucous membranes are moist CV: RRR with no murmur appreciated. RESPIRATORY: CTA bilaterally, no significant wheezes, rhonchi, or rales. EXTREMITIES: No edema, nontender, no ulcer. Warm, well perfused SKIN: No significant rashes. NECK: Supple. MENTAL STATUS Patient is awake, alert, and appropriately oriented. Attentive to examiner, cooperative with exam. Language is fluent. Fund of knowledge is normal. Memory is intact. Patient is able to give details of her own history. CRANIAL NERVES II: fundoscopic exam is deferred. Visual moore are full. Pupils are equal, round and reactive to light. III, IV and : extraocular movements are full. There is no nystagmus. V: Facial sensation is intact and symmetric. VII: The face: weakness of eye closoure and Cheek puff VIII: Hearing is grossly intact. IX and X: Soft palate elevates symmetrically in the midline. No dysarthria XI: Shoulder shrug and sternocleidomastoids are strong. XII: Tongue is midline, normal movement, no atrophy or fasciculations. Very subtle weakness MOTOR Bulk and tone are normal. There is no pronator drift. Neck flexion (Supine) 4- SA EE EF WE WF FF FE ThAb Sandra Left 4 5 4 4- 5 5- Right 4 5 4 4- 5 5- HF KE KF DF PF Inv Ev HAb HAd TE TF Left 4 5 5 4 Right 4 5 5 4 REFLEXES Reflexes Right Left Comments Biceps 2+ 2+ Triceps 2 2 Brachioradialis 2 2 Patella 2 2 Achilles 2 2 SENSORY Vibration: intact fingers and toe COORDINATION Finger to nose is intact without dysmetria or tremors. GAIT EXAMINATION Gait is narrow-based and steady, with normal arm swing. ASSESSMENT/PLAN This is a 32 y.o. female with MG superimposed on a seizure disorder and anxiety 1 I suspect she is not doing better yet or as well as she did last fall because she should probablyhave had a booster of the ultomiris with the second round of medication since she has been off for 4 months. We talked about this. I am hopeful that she will show improvement with she gets the next dose in 2 weeks It is possible that the complement inhibitor will not be sufficient. She may need to go back on cellcept. She was uncertain about the dose she was on before so I dont know if she was on enough 2. She will try mestinon 30 mg tid to see if she can tolerate this 3. I wonder if an FCRN inhibitor is an option. I will discuss with our pharmacist 4. Also, it looks like she had a hepatitis screen but I dont see a core total. She should have a chronic hepatitis battery to check this 5. She should have a quanitferon checked as well 6. I suspect that she is having carpal spasms when she says her hand doesn't work. She does have some hand weakness but this seems beyond that. I explained that anxiety could make this worse I have given her an appt to return if she wants. But I willeave that up to the two of you Thank you for asking me to participate in the care of this patient. If I can provide you with any additional information, please let me know. * Miguelina Doran MA - 10/06/2022 11:00 AM EDT Please discontinue medications that are marked as not taking for the patient. [facility] Instructions* Patient Instructions* Pankaj Mejias MD - 10/06/2022 11:00 AM EDT Try the mestinon again. Try 1/2 pill ( 30 mg total) in the AM and repeat 2 more times during the rest of the day to see if you tolerate 2. Try to find out what the maximum dose of cellcept you were on [facility] Del Castillo [facility] September 07, 2022 6:35pm Note Date/Time September 07, 2022 6:23pm [facility] Medical Records Department [address] [place] [address] Emergency Department Summary 09/07/22 MR#: [id number] Acct: [id number] Name: DOUG FLANAGAN Rep #:[id number] : 1990 32 From: Brain Del Castillo MD PCP: Dr. Donna Perdomo MD Status:REG E R Location: ED HPI History of Present Illness Chief Complaint: Nausea/Vomiting Detail of Chief Complaint: Chest discomfort, shortness of breath, motor activitywithout loss of consc Informant: patient and family ([id number]) Onset/Context/Timing Onset: Today Context: Sudden Onset Timing: Intermittent Quality: Document HPI narrative Location: Multiple locations Current Severity: Mild Maximum Severity: Moderate Worsened by: Chest pain worse with movement and breathing Relieved by: Nothing Associated Symptoms Associated Symptoms: HPI narrative Narrative Narrative: Patient is a 32-year-old woman with history of myasthenia gravis, generalized tonic-clonic seizures as well as petit mall seizures who presents by ambulance because son noted jerking motion of her arm. Patient reported no loss of conscious which is not normal for her with seizure. [id number] states she was not postictal. She also complains of inability to obtain a good breath and pleuritic chest painwith muscular pain on left side of her chest. She does have history of DVT right upper extremity due to port. She is presently on anticoagulant because ofthe clot. She denies headache. She does report vertical and horizontal diplopia. This may be due to her myasthenia gravis. She was recently admitted for myasthenia gravis crisis and required plasmapheresis. She received recent therapy. [facility]. Patient's next dose of medication is in 6weeks. She also complains of leg pain. She denies history of DVT of the lower extremity. Denies swelling, discoloration. She denies nausea, vomiting diarrhea. She denies fever. She does complain of bifrontal headache. She denies ringing or ears decreased hearing. She denies loss of vision. She denies trouble with speech or swallowing. Prior similar symptoms: No Recent Illness/Hospitalization: Yes [facility] Medical History Anemia Chest pain Difficulty chewing Difficulty swallowing History of stress test Hx of peripheral vascular disease Injury of head and neck Leg cramps Migraine headache Myasthenia gravis Non-smoker Normal echocardiogram (~05/18/16) Seizures Shortness of breath on exertion Home Medications zonisamide 100 mg capsule 200 mg PO 0800 seizures 12/23/17 [History Last Taken 10/17/21] lorazepam 1 mg tablet 1 mg PO DAILY PRN PRN Seizure 01/07/18 [History Last Taken 05/03/18] zonisamide 100 mg capsule 300 mg PO QHS seizures 03/26/19 [History Last Taken 11/01/20 20:00] lamotrigine 200 mg tablet,extended release 24 hr 100 mg PO 0800 seizures 10/14/20 [History Last Taken 10/17/21] lamotrigine 250 mg tablet,extended release 24 hr 200 mg PO QHS seizures 10/14/20[History Last Taken 11/01/20 20:00] levonorgestrel 21 mcg/24 hours (8 yrs) 52 mg intrauterine device (Mirena) 20 mcgintrauterine UD control 10/14/20 [History Last Taken Unknown] oxcarbazepine 150 mg tablet 150 mg PO QHS SEIZURES 10/14/20 [History Last Taken 11/01/20 20:00] apixaban 5 mg tablet (Eliquis) 5 mg PO BID blood clot 11/02/20 [History Last Taken 10/13/21] escitalopram oxalate 10 mg tablet (Lexapro) 10 mg PO QHS 10/09/21 [History Last Taken Unknown] diazepam 10 mg/spray (0.1 mL) nasal spray (Valtoco) 10 mg intranasal PRN PRN Seizures 08/08/22 [History Last Taken Unknown] Allergy/AdvReac Type Severity Reaction Status Date / Time levetiracetam [From ppra] Allergy Other Verified 09/07/22 14:38 Penicillins Allergy Rash Verified 09/07/22 14:38 phenytoin [From Dilantin] Allergy PT UNSURE Verified 09/07/22 14:38 OF REACTION prochlorperazine Allergy Other Verified 09/07/22 14:38 [From Compazine] shellfish derived Allergy Other Verified 09/07/22 14:38 soy AdvReac NEEDS Verified 09/07/22 14:38 FOLLOW-UP Surgical History Hx of appendectomy Hx of thymectomy Hx of total hip arthroplasty Social History household members: spouse Smoking Status: Never smoker second hand exposure: Yes alcohol intake: never substance use type: does not use ROS ROS ED Constitutional Constitutional ED: Denies chills, fever(s), subjective, sweats or weight loss Eyes Eyes: Denies blurry vision, change in vision or diplopia ENT ENT ED: Denies ear pain, rhinorrhea or sore throat Cardiovascular Cardiovascular: Reports chest pain; Denies orthopnea, palpitations, paroxysmal nocturnal dyspnea or racing heartbeat Respiratory/Chest Respiratory/Chest: Reports dyspnea; Denies cough, dyspnea on exertion, orthopneaor paroxysmal nocturnal dyspnea Gastrointestinal Gastrointestinal: Reports nausea; Denies abdominal pain, constipation, diarrhea or vomiting Genitourinary Genitourinary ED: Denies dysuria, hematuria or urinary frequency Musculoskeletal Musculoskeletal: Denies arthralgias, back pain, myalgias or neck pain Integumentary Denies Abrasions or rash Neurologic Neurologic: Reports headache(s); Denies paresthesias or weakness Psychiatric Psychiatric: Reports anxiety Hematologic/Lymphatic Hematologic/Lymphatic: Reports systems reviewed and no addt'l complaints, exceptas documented EXAM Physical Exam Const Vital Signs: 09/07/22 14:04 09/07/22 14:40 09/07/22 16:42 Temperature 97.5 F L 96.6 F L Temperature Source Temporal Temporal Pulse Rate 110 H 78 Respiratory Rate 16 18 Respiratory Effort Normal Non-Labored Respiratory Depth Normal Respiratory Pattern Normal Blood Pressure 116/83 H 113/66 Blood Pressure Mean 94 81 Pulse Ox 100 98 Oxygen Delivery Method Room Air Room Air Room Air 09/07/22 18:06 Temperature Temperature Source Pulse Rate Respiratory Rate 18 Respiratory Effort Respiratory Depth Respiratory Pattern Blood Pressure 115/79 Blood Pressure Mean 91 Pulse Ox Oxygen Delivery Method Room Air Positive well nourished and well developed General Appearance ED: well developed and NAD; Negative for cyanotic, diaphoretic or pallor HEENT Reports moist mucous membranes HEENT Narrative: Head is atraumatic normocephalic. Ears normal. TMs normal. Nares patent. No abnormality noted. Posterior pharynx is normal. Uvula is midline. There is nodeep tongue with protrusion. Eyes PERRL and EOMs intact bilaterally Eyes Narrative: There is no nystagmus. There is no APD. General Eye ED: Negative for pale conjunctiva or scleral icterus Neck no lymphadenopathy, supple and no JVD Chest Wall inspection of chest normal and palpation of chest normal Chest Narrative: Pain to palpation anterior axillary line fifth sixth left rib region. Resp normal respiratory effort and clear to auscultation bilaterally Cardio regular rate, regular rhythm, S1 normal heart sound, S2 normal heart sound and no murmurs GI normal to inspection, nondistended, normoactive bowel sounds, non-tender and non-distended Auscultation: normoactive bowel sounds Palpation: soft Back/Spine no CVA tenderness Thoracic Spine / Upper Back: Negative for thoracic spinal tenderness Lumbar Spine / Lower Back: Negative for lumbar spinal tenderness Extremity normal to inspection Extremity Narrative: There is no asymmetry, swelling, discoloration, leg vein distention, palpable cords or tenderness along the distribution of the deep venous system. Furthermore, there is no swelling, discoloration, asymmetry, venous distention upper extremities. Neuro oriented x3, CN's II-XII intact bilaterally and no sensory deficits noted Neuro Narrative: There is no clonus or Babinski sign. There is no dysmetria. Sensorium / Orientation: alert Motor Exam: strength 5/5 throughout Skin no rashes or lesions noted, no wounds and skin turgor normal General Skin Exam: elasticity normal; Negative for jaundice or pallor MDM MDM MDM Narrative Medical decision making narrative: History of DVT upper extremity pleuritic pain and the fact that she is not PERC negative will need to obtain a D-dimer to rule out/assess for PE. Will obtain blood work to assess white count and H&H electrolyte and was obtained to determine if this is explains any of her symptoms. She came out and said that she does have problems with anxiety. This is not her typical seizure. She is scheduled to see Dr. 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 There is no Tensilon available to determine if patient needs more medication. 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 As stated before this may be due to her myasthenia gravis. This will need to be followed up by her neurologist. Lab Data Attestation: I reviewed the patient's lab results. Lab results narrative: White is slightly elevated with normal differential. D-dimer is less than 0.27. Comprehensive metabolic panel is both. Labs: Laboratory Results - last 24 hr 09/07/22 09/07/22 09/07/22 16:00 16:00 16:00 WBC 11.1 H RBC 4.48 Hgb 12.4 Hct 38.5 MCV 85.9 MCH 27.7 MCHC 32.2 RDW Std Deviation 41.1 RDW Coeff of Mariella 13.2 Plt Count 306 MPV 9.3 Immature Gran % (Auto) 0.400 Neut % (Auto) 77.3 H Lymph % (Auto) 15.0 L Whiteside % (Auto) 5.8 Eos % (Auto) 1.1 Baso % (Auto) 0.4 Absolute Neuts (auto) 8.6 H Absolute Lymphs (auto) 1.67 Nucleated RBC % 0 D-Dimer Quant (PE/DVT) < 0.27 L Sodium 140 Potassium 3.7 Chloride 112 H Carbon Dioxide 22.0 Anion Gap 6 BUN 10 Creatinine 0.74 Estim Creat Clear Calc 88.61 Est GFR (MDRD) Af Amer 115 Est GFR (MDRD) Non-Af 95 BUN/Creatinine Ratio 13.5 Glucose 86 Calcium 9.1 Total Bilirubin 0.40 AST 13 L ALT 20 Alkaline Phosphatase 102 Total Protein 7.3 Albumin 3.9 Globulin 3.4 Albumin/Globulin Ratio 1.1 Radiography Chest X-Ray - ED: 2 View and Read by ED Physician (2 view chest x-ray was normalcardiac silhouette and size. Lung parenchyma is normal. Perihilar regions normal. Osseous structures are normal.) Diagnostic Testing: Clinical Impression(s) from Imaging Studies Chest X-Ray 09/07/22 16:10 IMPRESSION: No acute findings in the chest. Electronically Signed: Siva To MD at 16:38 EDT , Treatment and Re-Evaluation :: Patient's heart rate improved without treatment. Discharge Plan Triage Chief Complaint: Nausea/Vomiting ED Provider: Brain Del Castillo Dx/Rx/DC Orders Clinical Impression: Abnormal motor activity, Pleuritic chest pain, Musculoskeletal chest pain, Hx of myasthenia gravis, History of seizure disorder, Diplopia, Anticoagulant long- term use Instructions: ED Pleurisy Prescriptions: No Action zonisamide 100 capsule 200 mg PO 0800 Label Comments: seizures lorazepam 1 MG tablet 1 mg PO DAILY PRN PRN (Reason: Seizure) Label Comments: seizures zonisamide 100 MG capsule 300 mg PO QHS Label Comments: seizures oxcarbazepine 150 mg tablet 150 mg PO QHS Mirena 20 mcg/24 hours (6 yrs) 52 mg Intrauterine Device 20 mcg INTRAUTERINE UD Label Comments: already placed lamotrigine 200 mg tablet extended release 24hr 100 mg PO 0800 Label Comments: take 1 tablet by mouth once daily lamotrigine 250 mg tablet extended release 24hr 200 mg PO QHS Label Comments: take 1 tablet by mouth once daily at bedtime Eliquis 5 mg tablet 5 mg PO BID Label Comments: TAKE 2 TABLETS BY MOUTH TWICE DAILY FOR 7 DAYS, THEN TAKE 1 TABLET TWICE DAILY escitalopram oxalate [Lexapro] 10 mg Tablet 10 mg PO QHS Valtoco 10 mg/spray (0.1 mL) spray,non-aerosol 10 mg INTRANASAL PRN PRN (Reason: Seizures) Label Comments: USE DIRECTED NASALLY 1 TO 2 TIMES A WEEK Primary Care Provider: Donna Perdomo Referrals: Donna Perdomo MD [Primary Care Provider] - 3-5 Days Gerald Gilmore MD [Non-Staff] - Keep Hellen appointment Disposition Disposition: Home, Self Care What to do if you have Problems For any increased pain, shortness of breath, bleeding, nausea or vomiting, chestpain, or any unexpected problems, contact your Primary Care Provider. Call [facility] ([phone]) or report to the closest Emergency Room. Call 911 if necessary. 09/07/22 1835 <Electronically signed by Brain Del Castillo MD> Cosigner Signature (if applicable): CC: Dr. Donna Perdomo MD ~ Signed [facility] Work Phone: [phone] 180-376105-05-2023 Telephone encounter Note* Telephone Encounter - Clifford VelezMonica Ma - 09/04/2022 6:24 PM EDT Name of Caller: Doug Contact Reason for Appointment: Doug submitted an online request on 09/04/22 regarding a call back to getscheduled for a [employer] appt for Dx: Myasthenia Gravis/Epilepsy. Doug states she would like to get scheduled for an appt within the next month. Doug states she is available for call back any time. CACcontacted Doug for additional information regarding scheduling; however, there was no answer. CAC LVM with office fax# and ph# for referral and scheduling. Please be advised. Office Name: Neurology, [facility] Medication Refills need, if any: N/A Medication Name: N/A [id number] Miscellaneous Notes* Telephone Encounter - Clifford Efrain Ma - 09/04/2022 6:24 PM EDT Name of Caller: Doug Contact Reason for Appointment: Doug submitted an online request on 09/04/22 regarding a call back to getscheduled for a [employer] appt for Dx: Myasthenia Gravis/Epilepsy. Doug states she would like to get scheduled for an appt within the next month. Doug states she is available for call back any time. CACcontacted Doug for additional information regarding scheduling; however, there was no answer. CAC LVM with office fax# and ph# for referral and scheduling. Please be advised. Office Name: Neurology, [facility] Medication Refills need, if any: N/A Medication Name: N/A documented in this [place] 99261-07-2023 NoteInternal Medicine: Med Team Discharge Summary Doug Flanagan : 1990 ADMIT DATE: 07/30/2022 DISCHARGE DATE: 08/07/22 PCP: DONNA PERDOMO MD Visit Status: Admission Code Status: FULL CODE Primary Discharge Diagnosis: - Myasthenic crisis Secondary Discharge Diagnoses: - Myasthenia gravis - History of seizures - Depression - Anxiety - History of clots in R Mediport - Constipation, resolved - Hypokalemia, resolved Reason for Admission & Hospital Course: 31F with PMH myasthenia gravis (diagnosed 2018), history of seizure, and depression who presented to [facility] on 07/30/22 for impending myasthenic crisis. Patient's MG had been well controlled on Ultramoris infusions every 8 weeks (started 2 years ago). Her last infusion was in 05/2022. She was supposed to have the next infusion on 07/21/22 but there was an issue with insurance payment so she was unable to get the treatment. She then started experiencing headache, blurry vision, double vision, trouble breathing, and generalized weakness concerning for myasthenic crisis. The patient was admitted to [facility] to undergo plasmapheresis. A L tunneled dialysis catheter was placed. The patient received 5 plasmapheresis treatments total. Her symptoms had improved significantly after the 2nd treatment. In addition to subjective improvements in SOB and strength, NIF measurements improved over the course of several days. Home AEDs were continued for seizure history. No seizure-like activity was noticed this admission. Health-associated anxiety was controlled with home medications and additional hydroxyzine PRN. Apixaban was resumed for history of clots in R [facility]. The patient was discharged home in stable condition with plan to follow up with outpatient neurologist Dr. Gilmore on 08/19/22. Disposition: Home Activity: No restriction. Diet: Adult diet Regular Discharge Medications: Medication List START taking these medications hydrOXYzine pamoate 25 MG capsule Commonly known as: Vistaril Take 1 capsule (25 mg) by mouth every 6 hours as needed for anxiety (2nd line after lorazepam) for up to 10 days. CONTINUE taking these medications acetaminophen 325 MG tablet Commonly known as: Tylenol apixaban 5 MG tablet Commonly known as: Eliquis escitalopram 20 MG tablet Commonly known as: Lexapro * lamoTRIgine 100 mg tablet sustained-release 24 hour 24 hr tablet Commonly known as: LaMICtal XR * lamoTRIgine 200 mg tablet sustained-release 24 hour 24 hr tablet Commonly known as: LaMICtal XR levonorgestrel 20 MCG/DAY IUD Commonly known as: Mirena LORazepam 1 MG tablet Commonly known as: Ativan Take 1 tablet (1 mg) by mouth every 6 hours as needed for anxiety for up to 5 doses. OXcarbazepine 150 MG tablet Commonly known as: Trileptal polyethylene glycol (PEG) 3350 17 g packet Commonly known as: Miralax Valtoco 10 MG Dose 10 MG/0.1ML liquid Generic drug: diazePAM * zonisamide 100 MG capsule Commonly known as: Zonegran * zonisamide 100 MG capsule Commonly known as: Zonegran * This list has 4 medication(s) that are the same as other medications prescribed for you. Read the directions carefully, and ask your doctor or other care provider to review them with you. STOP taking these medications Ultomiris 1100 MG/11ML injection Generic drug: [id number] Where to Get Your Medications These medications were sent to [facility] [address] [place] [address] Hours: Wednesday to Wednesday 10 am to 6 pm hydrOXYzine pamoate 25 MG capsule LORazepam 1 MG tablet Notable Medication Changes & Reasoning: - Hydroxyzine 25mg PO q6h prn (2nd line) - Ativan 1mg PO q6h prn (1st line) both for anxiety [facility] Psychiatry Nephrology Neurology Procedures Performed Plasmapheresis for 5 treatments Significant Laboratory/Radiographic Data: MR brain with and without contrast 08/01/22 IMPRESSION: Normal MRI of the brain with and without contrast. MR cervical/thoracic spine with and without contrast 08/01/22 IMPRESSION: 1. Normal appearance of the cervical and thoracic spinal cord. Negative study. 2. Incidental 9 mm osseous lesion in the parasymphysis of the left hemimandible which is most likely a odontogenic inflammatory lesion but otherwise not characterized on this exam. Pending Results at Time of Discharge None Follow Up Appointment(s): Follow up appointment scheduled as stated below: - Neurologist Dr. Gilmore 08/19/22 Items to Address at Followup Visit: - Follow up with neurologist for long-term treatment of myasthenia gravis. - Incidental finding of likely dental lesion on MRI was discussed with the patient and her family. They were already aware of existing dental issues. Advised that follow-up with a dentist may be desirable. (more content not included)...[facility]04-07-2023 Nurse Note* Alyssa Morales RN - 08/07/2022 3:48 PM EDT To IR for Tunnel Hemo dialysis catheter Pt positioned, prepped and draped per protocol 28 cm tunnelHD removed pressure held to site 10 min site benign dry dressing applied. . Pt tolerated procedure well, pt denies complaints post. Pt to her room.. [id number] Nurse Note* Alyssa Morales RN - 08/07/2022 3:48 PM EDT To IR for Tunnel Hemo dialysis catheter Pt positioned, prepped and draped per protocol 28 cm tunnelHD removed pressure held to site 10 min site benign dry dressing applied. . Pt tolerated procedure well, pt denies complaints post. Pt to her room.. documented in this [facility]04-07-2023 Hospital Discharge instructions* Discharge Instructions* Rene Hill MD - 08/07/2022 2:02 PM EDT - Please follow up with Dr. Gilmore on 08/19 regarding myasthenia gravis and future orders for Ultomiris infusions * Attachments The following attachments cannot be sent through Care Everywhere. * Myasthenia Gravis Discharge Instructions ([place]er) * Myasthenia Gravis ([place]) documented in this [facility]04-07-2023 Note* Care Coordination - Michaela Caceres RN - 08/07/2022 1:04 PM EDT WAS ABLE TO SPEAK WITH PT'S [employer] ENGINE[employer] AGUSTIN THIS MORNING. SHE SAID AT THIS TIME, OUTPT MEDICATION PAYMENT HAS STILL NOT GONE THROUGH, BUT THEY WILL CONTINUE TO WORK ON THIS. SHE ALSO TOLD ME SHE WILL FOLLOW UP WITH PT. SPOKE WITH PT AND MOM, JUST FINISHED PLASMAPHERESIS. WILL GET TUNNELED LINE OUT AND DISCHARGE TO HOME LATER TODAY. AWARE AGUSTIN FROM [facility] WILL BE IN CONTACT. [id number] Note* Care Coordination - Michaela Caceres RN - 08/07/2022 1:04 PM EDT WAS ABLE TO SPEAK WITH PT'S YIFAN [employer] ENGINEER AGUSTIN THIS MORNING. SHE SAID AT THIS TIME, OUTPT MEDICATION PAYMENT HAS STILL NOT GONE THROUGH, BUT THEY WILL CONTINUE TO WORK ON THIS. SHE ALSO TOLD ME SHE WILL FOLLOW UP WITH PT. SPOKE WITH PT AND MOM, JUST FINISHED PLASMAPHERESIS. WILL GET TUNNELED LINE OUT AND DISCHARGE TO HOME LATER TODAY. [id number] Miscellaneous Notes* Care Coordination - Michaela Caceres RN - 08/07/2022 1:04 PM EDT WAS ABLE TO SPEAK WITH PT'S YIFAN [employer] ENGINEER AGUSTIN THIS MORNING. SHE SAID AT THIS TIME, OUTPT MEDICATION PAYMENT HAS STILL NOT GONE THROUGH, BUT THEY WILL CONTINUE TO WORK ON THIS. SHE ALSO TOLD ME SHE WILL FOLLOW UP WITH PT. SPOKE WITH PT AND MOM, JUST FINISHED PLASMAPHERESIS. WILL GET TUNNELED LINE OUT AND DISCHARGE TO HOME LATER TODAY. AWARE AGUSTIN FROM [facility] WILL BE IN CONTACT. * Care Coordination - DARRION Salamanca - 08/06/2022 4:24 PM EDT [place] met with patient for follow-up on psychology consult which was completed on 08/03. Pt experiencing anxiety while in the hospital surrounding being away from her son, dog and attempting to get hermedication approved. Pt reports doing better. Endorses some situational anxiety as mentioned above but denies any chronic mental health symptoms. Pt reports she has been utilize her coping skills such as meditation, word books, and talking to her family. Discussed outpatient MH services with pt. At this time pt denies need for behavioral health supportas she reports her anxiety is related to situational concerns. Dakota did educate pt on [facility] which provides outpatient/crisis MH services in her area. Pt was also provided with Dakota business card for behavioral health support while in the community. Pt thanked Dakota and was agreeable to contact Dakota if needed. * Significant Event - Geovani Srivastava DO - 08/06/2022 12:00 AM EDT Paged by nursing staff that the patient was having increasing left chest pain at the site of her line placement. On my evaluation there is no crepitus, discharge, erythema, or edema. Patient does notappear to be in any respiratory distress and is having no shortness of breath. She states that she was concerned that she may have a clot in the line as it feels similar but not completely the same as when she had a clot on the right side in the line. She states however that the Plex treatment today was able to run without any difficulties. Patient does have pain with flexion of her neck and rotation towards the left side. I do believe that this is most likely musculoskeletal pain as she complains that the pain seems more left-sided in her neck with radiation from her chest port. After reviewing her medications I did explain to her that I would like to try a muscle relaxant as I believe that her pain is musculoskeletal and etiology. After reviewing her orders I did place an order for tizanidine 2 mg p.o. I informed the nurse that her blood pressure has been on the slightly softer side and that she is not to get up out of bed without first using her call light and having people presentto help her. Vitals were reviewed. Geovani Srivastava DO, MS, PGY-1 08/06/22 at 12:00 AM Shortly after evaluating patient the nurse did message me that the patient had googled tizanidine and it was listed as one of the top 3 medications not to receive with myasthenia's gravis. Based on this the patient refused the medication. Nursing was asking for more Toradol for the patient however after reviewing the patient's MAR she has had several days of Toradol. I did inform the nurse that we could do p.o. ibuprofen however did not want to give any further ketorolac. I also explained to the nurse that we could try heat to the area as well as a lidocaine patch. The nurse did state that she just given the patient Ativan and I did not receive any further communications regarding this patient. Geovani Srivastava DO, MS, PGY-1 08/06/22 at 3:31 AM * Care Coordination - Michaela Caceres RN - 08/05/2022 1:41 PM EDT SPOKE WITH PT AND MOM AT BEDSIDE THIS MORNING. PT HAVING PLASMAPHERESIS. INFORMED THEM TALKED WITH AGUSTIN SAHA YESTERDAY AND WILL TOUCH BASE WITH HER TOMORROW. MOM HAD QUESTIONS ABOUT FILLINGA FAMILY APPEAL FOR OUTPT IV MEDS, ALL QUESTIONS ANSWERED. * Care Coordination - Michaela Caceres RN - 08/04/2022 2:30 PM EDT SPOKE WITH PT, DOING GOOD THIS MORNING. SHE DID TALK [facility] AGUSTIN YESTERDAY.GAVE ME HERE #, . I DID SPEAK WITH AGUSTIN, SHE IS WORKING TO GET PT'S OUTPT IV MED APPROVED. SHE WILL TOUCH BASE WITH ME TOWARDS END OF WEEK. PLAN FOR PLASMAPHERESIS TOMORROW. DISCHARGE TO HOME WHEN MEDICALLY READY. * Care Coordination - Michaela Caceres RN - 08/03/2022 12:45 PM EDT Care Managment Initial Assessment Date: 08/03/2022 Patient Name: Doug Flanagan : 1990 Patient Information Source of Information: Patient Cognition/Language: WFL - Within Functional Limits Permission given to speak with patient public service representative/caregiver as indicated: Yes Confirmation of Payer with patient/family: Yes Payer Name: [facility] : No Confirmation of Primary Care Physician: Confirmed PCP Name: DR PERDOMO Primary Caregiver: Self If assistance needed, confirmed caregiver ready, willing and able to care for patient at discharge: Confirmed with: Living Arrangements Current Residence: Private Residence Number of Floors Number of Entry Steps: Bed/Bath Levels: Facility: Facility Name: Plan to Return: Lives with: (10 YO SON) Support Systems: Parent Activities of Daily Living Ambulation: Independent Bathing/Dressing: Independent Elimination/Continence/Toileting: Independent Feeding: Independent Who Assists with Activities of Daily Living: Instrumental Activities of Daily Living Prescription Coverage: Yes Pharmacy Used: Medication Management: Independent Transportation/Shopping: Transportation Mode: Needs Assistance with Transportation at Discharge: Meal Preparation: Independent Laundry/Cleaning: Independent Finances/Bill Paying: Independent Communication: Independent Types of Care Services/Equipment Utilized Care Services: (NA) Dialysis Type: NA Durable Medical Equipment: (NA) Patient's Goal/Discharge Plan Patient expects to be discharged to: HOME Discharge Planning Actions: Continue to follow Patient's Choice Rights and [employer] and Collaborative Relationships Disclosed as Indicated for Post-Acute Care: Interdisciplinary Team Engagement: Social Work Referral for: Additional Information: SPOKE WITH PT AND MOTHER AT BEDSIDE, INTRODUCED SELF AND EXPLAINED ROLE. PT HERE WITH MYASTHENIC CRISIS. NEPHRO FOLLOWING. NEURO HAS SIGNED OFF. WILL HAVE PLASMAPHERESIS TODAY. PYHELLEN CONSULT PENDING.PER PT, HER INSURANCE DID NOT APPROVE HER IV MEDICATION. EXPECTING CALL FROM HER [facility] [employer] ENGINEER. I ALSO TRIED TO CALL DR GILMORE'S OFFICE TO CHECK ON STATUS OF MEDICATION, OFFICE IS CLOSED TODAY. WILL TRY TOMORROW. ANTICIPATE DISCHARGE TO HOME WHEN COMPLETED PLASMAPHERESIS TREATMENTS. Michaela Caceres RN documented in this [facility]04-07-2023 NoteMed Team Progress Note Doug Flanagan : 1990(31 y.o.) Date: August 07, 2022 Med Team: D Attending: Dr. Don Chief Complaint: Impending myasthenic crisis Subjective: - O/N: Received 1 dose prn Hydroxyzine for anxiety. - This AM pt is still having some anxiety about removing the L HD cath today that she uses for plasmapheresis. Her strength is significantly improving from days prior, she is no longer having diplopia as she did a few days ago. Currently not in any pain. Patient with no complaints today. She just completed her last plasmapheresis session, tolerated well. She is aware of the plan for HD catheter removal today with discharge to home after this. Review of Systems Constitutional: Negative for appetite change, chills, fatigue, fever and unexpected weight change. Respiratory: Negative for cough, chest tightness, shortness of breath and wheezing. Cardiovascular: Negative for chest pain, palpitations and leg swelling. Gastrointestinal: Negative for abdominal pain, constipation, diarrhea and nausea. Skin: Negative for color change and wound. Neurological: Negative for dizziness, tremors, syncope and headaches. Scheduled Meds:acetaminophen, 1,000 mg, Oral, TID apixaban, 5 mg, Oral, BID calcium gluconate, 2,000 mg, IntraVENous, Once escitalopram, 10 mg, Oral, Daily heparin flush, 100 Units, IntraCATHeter, q12h lamoTRIgine, 100 mg, Oral, Daily lamoTRIgine, 250 mg, Oral, Nightly OXcarbazepine, 150 mg, Oral, Daily sodium chloride 0.9%, 10 mL, IntraCATHeter, q12h sodium chloride 0.9%, 5-40 mL, IntraVENous, q12h zonisamide, 200 mg, Oral, Daily zonisamide, 300 mg, Oral, Nightly Continuous Infusions:citrate dextrose, 100-200 mL/hr Objective: BP 112/75 (BP Location: Right arm, Patient Position: Lying) Pulse 84 Temp 36.7 ?C (98 ?F) (Temporal) Resp 18 Ht 5' 2.01 (1.575 m) Wt 169 lb 15.6 oz (77.1 kg) LMP 07/30/2022 SpO2 96% BMI 31.08 kg/m? Physical Exam Constitutional: General: She is not in acute distress. Appearance: Normal appearance. She is normal weight. She is not toxic-appearing. HENT: Head: Normocephalic and atraumatic. Nose: Nose normal. Mouth/Throat: Mouth: Mucous membranes are moist. Pharynx: Oropharynx is clear. Eyes: Conjunctiva/sclera: Conjunctivae normal. Neck: Comments: No erythema or pus around L HD line Cardiovascular: Rate and Rhythm: Normal rate and regular rhythm. Heart sounds: Normal heart sounds. No murmur heard. No friction rub. Pulmonary: Effort: No respiratory distress. Breath sounds: Normal breath sounds. No stridor. No wheezing. Abdominal: General: Bowel sounds are normal. There is no distension. Palpations: Abdomen is soft. Tenderness: There is no abdominal tenderness. There is no guarding or rebound. Musculoskeletal: Cervical back: Normal range of motion. Right lower leg: No edema. Left lower leg: No edema. Skin: General: Skin is warm and dry. Capillary Refill: Capillary refill takes less than 2 seconds. Coloration: Skin is not jaundiced. Neurological: General: No focal deficit present. Mental Status: She is alert and oriented to person, place, and time. Mental status is at baseline. [facility] within last 24 hours Auto WBC Date Value Ref Range Status 08/07/2022 6.9 3.6 - 10.7 10*3/uL Final Hemoglobin Date Value Ref Range Status 08/07/2022 11.8 11.7 - 16.0 g/dL Final Hematocrit Date Value Ref Range Status 08/07/2022 36.5 35.0 - 47.0 % Final Platelets Date Value Ref Range Status 08/07/2022 228 140 - 440 10*3/uL Final MCV Date Value Ref Range Status 08/07/2022 86.1 80.0 - 98.0 fL Final SODIUM Date Value Ref Range Status 08/07/2022 140 135 - 145 mmol/L Final POTASSIUM Date Value Ref Range Status 08/07/2022 3.8 3.5 - 5.1 mmol/L Final CHLORIDE Date Value Ref Range Status 08/07/2022 111 (H) 98 - 107 mmol/L Final CARBON DIOXIDE Date Value Ref Range Status 08/07/2022 20 (L) 22 - 30 mmol/L Final UREA NITROGEN Date Value Ref Range Status 08/07/2022 13 7 - 17 mg/dL Final CREATININE Date Value Ref Range Status 08/07/2022 0.70 0.52 - 1.04 mg/dL Final GLUCOSE Date Value Ref Range Status 08/07/2022 92 70 - 100 mg/dL Final CALCIUM Date Value Ref Range Status 08/07/2022 9.1 8.4 - 10.4 mg/dL Final AST (SGOT) Date Value Ref Range Status 08/07/2022 25 15 - 46 U/L Final ALT Date Value Ref Range Status 08/07/2022 15 0 - 34 U/L Final TOTAL PROTEIN Date Value Ref Range Status 08/07/2022 6.2 (L) 6.3 - 8.2 g/dL Final BILIRUBIN, TOTAL Date Value Ref Range Status 08/07/2022 0.3 0.2 - 1.3 mg/dL Final ALKALINE PHOSPHATASE Date Value Ref Range Status 08/07/2022 34 (L) 38 - 126 U/L Final No results found for: CKTOTAL, CKMB, TROPONINI No results found for: PROCAL, CHOL, TRIG, HDL, TSH, VITD25, HGBA1C, VANCOTROUGH Assessment and Plan: Myasthenic crisis - Patient follows with Dr. Gilmore neurology outpatie (more content not included)...[facility]04-07-2023 History of Present illness Narrative* Ayla Don MD - 08/07/2022 9:56 AM EDT Med Team Progress Note Doug Flanagan : 1990(31 y.o.) Date: August 07, 2022 Med Team: Sulma Attending: Dr. Don Chief Complaint: Impending myasthenic crisis Subjective: - O/N: Received 1 dose prn Hydroxyzine for anxiety. - This AM pt is still having some anxiety about removing the L HD cath today that she uses for plasmapheresis. Her strength is significantly improving from days prior, she is no longer having diplopia as she did a few days ago. Currently not in any pain. Patient with no complaints today. She just completed her last plasmapheresis session, tolerated well. She is aware of the plan for HD catheter removal today with discharge to home after this. Review of Systems Constitutional: Negative for appetite change, chills, fatigue, fever and unexpected weight change. Respiratory: Negative for cough, chest tightness, shortness of breath and wheezing. Cardiovascular: Negative for chest pain, palpitations and leg swelling. Gastrointestinal: Negative for abdominal pain, constipation, diarrhea and nausea. Skin: Negative for color change and wound. Neurological: Negative for dizziness, tremors, syncope and headaches. Scheduled Meds:acetaminophen, 1,000 mg, Oral, TID apixaban, 5 mg, Oral, BID calcium gluconate, 2,000 mg, IntraVENous, Once escitalopram, 10 mg, Oral, Daily heparin flush, 100 Units, IntraCATHeter, q12h lamoTRIgine, 100 mg, Oral, Daily lamoTRIgine, 250 mg, Oral, Nightly OXcarbazepine, 150 mg, Oral, Daily sodium chloride 0.9%, 10 mL, IntraCATHeter, q12h sodium chloride 0.9%, 5-40 mL, IntraVENous, q12h zonisamide, 200 mg, Oral, Daily zonisamide, 300 mg, Oral, Nightly Continuous Infusions:citrate dextrose, 100-200 mL/hr Objective: BP 112/75 (BP Location: Right arm, Patient Position: Lying) Pulse 84 Temp 36.7 C (98 F) (Temporal) Resp 18 Ht 5' 2.01 (1.575 m) Wt 169 lb 15.6 oz (77.1 kg) LMP 07/30/2022 SpO2 96% BMI 31.08 kg/m Physical Exam Constitutional: General: She is not in acute distress. Appearance: Normal appearance. She is normal weight. She is not toxic-appearing. HENT: Head: Normocephalic and atraumatic. Nose: Nose normal. Mouth/Throat: Mouth: Mucous membranes are moist. Pharynx: Oropharynx is clear. Eyes: Conjunctiva/sclera: Conjunctivae normal. Neck: Comments: No erythema or pus around L HD line Cardiovascular: Rate and Rhythm: Normal rate and regular rhythm. Heart sounds: Normal heart sounds. No murmur heard. No friction rub. Pulmonary: Effort: No respiratory distress. Breath sounds: Normal breath sounds. No stridor. No wheezing. Abdominal: General: Bowel sounds are normal. There is no distension. Palpations: Abdomen is soft. Tenderness: There is no abdominal tenderness. There is no guarding or rebound. Musculoskeletal: Cervical back: Normal range of motion. Right lower leg: No edema. Left lower leg: No edema. Skin: General: Skin is warm and dry. Capillary Refill: Capillary refill takes less than 2 seconds. Coloration: Skin is not jaundiced. Neurological: General: No focal deficit present. Mental Status: She is alert and oriented to person, place, and time. Mental status is at baseline. [facility] within last 24 hours Auto WBC Date Value Ref Range Status 08/07/2022 6.9 3.6 - 10.7 10*3/uL Final Hemoglobin Date Value Ref Range Status 08/07/2022 11.8 11.7 - 16.0 g/dL Final Hematocrit Date Value Ref Range Status 08/07/2022 36.5 35.0 - 47.0 % Final Platelets Date Value Ref Range Status 08/07/2022 228 140 - 440 10*3/uL Final MCV Date Value Ref Range Status 08/07/2022 86.1 80.0 - 98.0 fL Final SODIUM Date Value Ref Range Status 08/07/2022 140 135 - 145 mmol/L Final POTASSIUM Date Value Ref Range Status 08/07/2022 3.8 3.5 - 5.1 mmol/L Final CHLORIDE Date Value Ref Range Status 08/07/2022 111 (H) 98 - 107 mmol/L Final CARBON DIOXIDE Date Value Ref Range Status 08/07/2022 20 (L) 22 - 30 mmol/L Final UREA NITROGEN Date Value Ref Range Status 08/07/2022 13 7 - 17 mg/dL Final CREATININE Date Value Ref Range Status 08/07/2022 0.70 0.52 - 1.04 mg/dL Final GLUCOSE Date Value Ref Range Status 08/07/2022 92 70 - 100 mg/dL Final CALCIUM Date Value Ref Range Status 08/07/2022 9.1 8.4 - 10.4 mg/dL Final AST (SGOT) Date Value Ref Range Status 08/07/2022 25 15 - 46 U/L Final ALT Date Value Ref Range Status 08/07/2022 15 0 - 34 U/L Final TOTAL PROTEIN Date Value Ref Range Status 08/07/2022 6.2 (L) 6.3 - 8.2 g/dL Final BILIRUBIN, TOTAL Date Value Ref Range Status 08/07/2022 0.3 0.2 - 1.3 mg/dL Final ALKALINE PHOSPHATASE Date Value Ref Range Status 08/07/2022 34 (L) 38 - 126 U/L Final No results found for: CKTOTAL, CKMB, TROPONINI No results found for: PROCAL, CHOL, TRIG, HDL, TSH, VITD25, HGBA1C, VANCOTROUGH Assessment and Plan: Myasthenic crisis - Patient follows with Dr. Gilmore neurology outpatient for myasthenia gravis, she was on Ultomiris infusions every 8 weeks until insurance rejected the most recent dose - Last day of plasmapheresis to complete 5 days total. Nephro following. - Plan to remove L HD line today used for plasmapheresis - Has outpt Neuro appt with Dr. Gilmore on 08/19/22 - Encourage PO intake and IC Patient to follow up with Dr. Gilmore on 08/19/22 to discuss ultomiris. Breakthrough seizures History of seizures - Follows with Dr. Gilmore, previously well controlled with AEDs until several days prior to admission when she woke up in a post-ictal state - MRI brain and C-spine unremarkable. Neuro signed off. Rec outpt neuro f/u after discharge - Continue home AED: Lamotrigine 100mg + 250mg PO at bedtime, Oxcarbazepine 150mg PO daily, Zonisamide 200mg + 300mg PO at bedtime - Continue seizure precautions Discharge home on previous home antiepileptic regimen. Depression Anxiety - PRN Valium and lorazepam at home, does not take daily - Continue prn Hydroxyzine 25mg PO q6h (2nd line) and Ativan 1mg PO q12h (1st line) - Continue home Lexapro 10mg PO daily - Prior discussions about discharging home with short course of Hydroxyzine and Lorazepam History of clots in Mediport - Right Mediport was placed previously for her infusions - Mediport is currently not being used for infusions but is still flushed every 8 weeks - Hx of clot in port, patient on apixaban - Resume apixaban 5 mg PO BID Hypokalemia, resolved - Replace PRN Constipation, resolved - Docusate and senna BID PRN Disposition: Home after completion of pheresis today. - Goals of Care: FULL CODE - DVT Prophylaxis: Eliquis - GI Prophylaxis: Not Indicated - Diet: General I have discussed the care of Doug Flanagan with the medical student and/or resident. I have personally taken a history, examined the patient, and performed the associated medical decision making activities. I have reviewed & verified the attested documentation. Unless otherwise noted, this documentation reflects the history, physical exam, and medical decision making that I performed myself. Please see my personal additions in bold. Patient seen and examined by myself on 08/07/22 * Renny Cantor MD - 08/06/2022 5:15 PM EDT Renal Progress Note Chart reviewed Needs pheresis #5 tomorrow with tunneled HD line removal to follow Ok to discharge afterwards Does NOT need follow up with nephrology afterwards To go back to Dr. Gilmore as outpatient * Maude Perez DTR - 08/06/2022 2:22 PM EDT Nutrition update completed. Chart reviewed. Patient to be monitored and followed by the diet building maintenance technician. Dietitian available upon request. * Ayla Don MD - 08/06/2022 7:10 AM EDT Med Team Progress Note Doug Flanagan : 1990(31 y.o.) Date: August 06, 2022 Med Team: D Attending: Dr. Otto Chief Complaint: Impending myasthenic crisis Subjective: - Overnight, patient experienced pain around L chest catheter insertion site. Overnight resident offered tizanidine but patient declined. Received ibuprofen 600 mg x 2 and lorazepam 1 mg PO x 1. - This morning, patient is still experiencing tenderness at the insertion site of L dialysis catheter. Tylenol and ibuprofen are not helping. After receiving the lorazepam last night and doing some meditation, patient was able to get some rest. She requests an additional dose lorazepam today after breakfast. She thinks she can tide herself over until the final pheresis tomorrow. - Breathing is stable, overall improved over course of admission. - Increased strength. Able to ambulate down hallway and back. - Now having regular bowl movements. Patient with increased pain around dialysis catheter site which she attributes to discontinuation of ketorolac. Pain is tolerable and she is aware that the catheter will be removed tomorrow after plasmapheresis. She has been up walking in the hallways again. Review of Systems Constitutional: Negative for appetite change, chills and fever. HENT: Negative for trouble swallowing. Eyes: Negative for pain and visual disturbance. Respiratory: Negative for apnea and cough. Cardiovascular: Negative for chest pain and leg swelling. Gastrointestinal: Negative for abdominal pain, constipation, diarrhea, nausea and vomiting. Genitourinary: Negative for difficulty urinating and dysuria. Musculoskeletal: Negative for arthralgias and back pain. Skin: Negative for rash. Pain around left catheter site Neurological: Negative for dizziness and headaches. Psychiatric/Behavioral: Negative for agitation. Scheduled Meds:acetaminophen, 1,000 mg, Oral, TID apixaban, 5 mg, Oral, BID escitalopram, 10 mg, Oral, Daily heparin flush, 100 Units, IntraCATHeter, q12h lamoTRIgine, 100 mg, Oral, Daily lamoTRIgine, 250 mg, Oral, Nightly OXcarbazepine, 150 mg, Oral, Daily sodium chloride 0.9%, 10 mL, IntraCATHeter, q12h sodium chloride 0.9%, 5-40 mL, IntraVENous, q12h tiZANidine, 2 mg, Oral, Once zonisamide, 200 mg, Oral, Daily zonisamide, 300 mg, Oral, Nightly Continuous Infusions:citrate dextrose, 100-200 mL/hr, Last Rate: 1,000 mL (08/01/22 1146) citrate dextrose, 100-200 mL/hr, Last Rate: 1,000 mL/hr (08/05/22 1037) PRN meds used in last 24hrs: ibuprofen 600 mg x 2, lorazepam 1 mg x 2 Objective: BP 122/68 (BP Location: Right arm, Patient Position: Lying) Pulse 95 Temp 36.2 C (97.2 F) (Temporal) Resp 16 Ht 5' 2.01 (1.575 m) Wt 169 lb 15.6 oz (77.1 kg) LMP 07/30/2022 SpO2 98% BMI 31.08 kg/m Physical Exam Constitutional: Appearance: Normal appearance. HENT: Head: Normocephalic and atraumatic. Eyes: Extraocular Movements: Extraocular movements intact. Conjunctiva/sclera: Conjunctivae normal. Pupils: Pupils are equal, round, and reactive to light. Cardiovascular: Rate and Rhythm: Normal rate and regular rhythm. Heart sounds: Normal heart sounds. Pulmonary: Effort: Pulmonary effort is normal. Breath sounds: Normal breath sounds. Comments: No respiratory distress noted. Able to deeply inspire and exhale. Abdominal: General: Abdomen is flat. Bowel sounds are normal. There is no distension. Palpations: Abdomen is soft. Musculoskeletal: General: Normal range of motion. Cervical back: Normal range of motion and neck supple. Skin: General: Skin is warm and dry. Comments: Tenderness to palpation of left tunneled catheter site. No overlying erythema or edema. Mediport catheter in place in right chest. No erythema or edema. Clean. Dry. No drainage noted. Neurological: General: No focal deficit present. Mental Status: She is alert. Comments: Intact motor strength bilateral UE and LE. Sensation grossly intact. Psychiatric: Mood and Affect: Mood normal. Behavior: Behavior normal. [facility] within last 24 hours No results found for: WBC, HGB, HCT, PLT, MCV No results found for: NA, K, CL, CO2, BUN, CREATININE, GLUCOSE, CALCIUM, MG, PHOS No results found for: AST, ALT, PROT, BILITOT, ALKPHOS, INR, APTT, LIPASE No results found for: CKTOTAL, CKMB, TROPONINI No results found for: PROCAL, CHOL, TRIG, HDL, TSH, VITD25, HGBA1C, VANCOTROUGH Assessment and Plan: # Myasthenic crisis # Myasthenia gravis - Patient follows with Dr. Gilmore neurology outpatient for myasthenia gravis, she was on Ultomiris infusions every 8 weeks until insurance rejected the most recent dose - Tunneled catheter was placed on 07/30 by IR - NIF with improving trend - s/p 08/05 plasmapharesis sessions, every other day per nephrology - and last plasmapheresis Wednesday, 08/07 - Remove L dialysis catheter before discharge - Outpatient follow-up appointment on 08/19/[address] Gilmore - Symptomatic control, PRN anti-emetics - Discontinued ketorolac (received 5 days). Started on scheduled acetaminophen and ibuprofen PRN. OK for additional dose lorazepam today to aid with anxiety/discomfort. - Encourage PO intake - Encourage incentive spirometry - Planning for last (09/04) plasmapheresis tomorrow followed by dialysis catheter removal and discharge. # Breakthrough seizures # History of seizures - Follows with Dr. Gilmore, previously well controlled with AEDs until several days prior to admission when she woke up in a post-ictal state - Neurology was consulted - MR brain w and w/o contrast, MR C-spine w and w/o contrast were unremarkable - Check level of seizure medications (lamotrigine, Trileptal wnl) - Seizure precautions - Continue home AEDS- lamotrigine, zonisamide, Trileptal - agree # Hypokalemia, resolved - Replace PRN # Depression # Anxiety - PRN Valium and lorazepam at home, does not take daily - Home lorazepem PRN ordered, hold off on Valium - When evaluated on 08/02, patient had anxiety exacerbation secondary to health- related issues, separation from son, and insurance issues - Hydroxyzine 25 mg PO q6h PRN for anxiety (second line) - Continue home escitalopram - Short course lorazepam and hydroxyzine script on discharge # History of clots in Mediport - Right Mediport was placed previously for her infusions - Mediport is currently not being used for infusions but is still flushed every 8 weeks - Hx of clot in port, patient on apixaban - Resume apixaban 5 mg PO BID # Constipation, resolved - Now having regular bowel movements - Abdomen is non-tender, non-distended and has + bowel sounds - Docusate and senna BID PRN Disposition: Home after completion of pheresis 08/07. Needs TDC out before discharge. - Goals of Care: FULL CODE - DVT Prophylaxis: Eliquis - GI Prophylaxis: Not Indicated - Diet: General I have discussed the care of Doug Flanagan with the medical student and/or resident. I have personally taken a history, examined the patient, and performed the associated medical decision making activities. I have reviewed & verified the attested documentation. Unless otherwise noted, this documentation reflects the history, physical exam, and medical decision making that I performed myself. Please see my personal additions in bold. Patient seen and examined by myself on 08/06/22 * Narcisa Rodas RN - 08/05/2022 12:07 PM EDT # 4 TPE completed today Pt tolerated well Flowsheets in bed side chart * Renny Cantor MD - 08/05/2022 10:51 AM EDT Indications for Dialysis No data to display Subjective Interval History: Doug Flanagan has none. Did fine with pheresis Medications Current Facility-Administered Medications: acetaminophen (Tylenol) tablet 650 mg, 650 mg, Oral, q6h PRN, 650 mg at 08/04/22 5038 OR acetaminophen (Tylenol) suppository 650 mg, 650 mg, Rectal, q6h PRN, [facility] , acetaminophen (Tylenol) tablet 1,000 mg, 1,000 mg, Oral, TID, Tanner Wang MD, 1,000 mg at 08/05/22 0925 apixaban (Eliquis) tablet 5 mg, 5 mg, Oral, BID, [facility] , DO, 5 mg at 08/05/22 0823 calcium gluconate 1,900 mg in sodium chloride 0.9 % 100 mL IVPB, 1,900 mg, IntraVENous, Once in dialysis, Get Manjarrez MD, 1,900 mg at 08/05/22 1038 citrate dextrose (ACD-A) infusion, 100-200 mL/hr, IntraCATHeter, Continuous, Renny Cantor MD, Last Rate: 100 mL/hr at 08/01/22 1146, 1,000 mL at 08/01/22 1146 citrate dextrose (ACD-A) infusion, 100-200 mL/hr, CRRT, Continuous, Get Manjarrez MD, Last Rate: 1,000 mL/hr at 08/05/22 1037, 1,000 mL/hr at 08/05/22 1037 docusate sodium (Colace) capsule 100 mg, 100 mg, Oral, BID PRN, Tanner Wang MD escitalopram (Lexapro) tablet 10 mg, 10 mg, Oral, Daily, [facility] , , 10 mg at 08/04/22 1950 heparin flush injection 100 Units, 100 Units, IntraCATHeter, q12h, Juliana Tavares MD, 100 Units at 08/05/22 0823 heparin flush injection 100 Units, 100 Units, IntraCATHeter, PRN, Juliana Tavares MD heparin injection 2,100 Units, 2,100 Units, IntraCATHeter, PRN, Renny Cantor MD, 2,100 Units at 08/03/22 1404 heparin injection 2,200 Units, 2,200 Units, IntraCATHeter, PRN, Renny Cantor MD, 2,200 Units at 08/03/22 1404 hydrOXYzine pamoate (Vistaril) capsule 25 mg, 25 mg, Oral, q6h PRN, Tanner Wang MD, 25 mg at 08/03/22 1852 ibuprofen tablet 600 mg, 600 mg, Oral, q6h PRN, Tanner Wang MD lamoTRIgine (LaMICtal) tablet 100 mg, 100 mg, Oral, Daily, Vinuth Koduru, DO, 100 mg at 08/05/22 08 lamoTRIgine (LaMICtal) tablet 250 mg, 250 mg, Oral, Nightly, Vinuth Koduru, DO, 250 mg at 08/04/221952 LORazepam (Ativan) tablet 1 mg, 1 mg, Oral, q12h PRN, Vinuth Koduru, DO, 1 mg at 08/05/22 0925 ondansetron ODT (Zofran-ODT) disintegrating tablet 4 mg, 4 mg, Oral, q8h PRN OR ondansetron (Zofran) injection 4 mg, 4 mg, IntraVENous, q6h PRN, Antwon Koduru, DO, 4 mg at 07/31/22 1628 OXcarbazepine (Trileptal) tablet 150 mg, 150 mg, Oral, Daily, Vinuth Koduru, DO, 150 mg at 140 polyethylene glycol (PEG) 3350 (Miralax) packet 17 g, 17 g, Oral, Daily PRN, Antwon Barboururu, DO sennosides (Senokot) tablet 17.2 mg, 2 tablet, Oral, BID PRN, Tanner Wang MD sodium chloride 0.9 % infusion, 5-250 mL/hr, IntraVENous, PRN, Antwon Koduru, DO sodium chloride 0.9% (NS) flush 10 mL, 10 mL, IntraCATHeter, q12h, Juliana Tavares MD, 10 mL at 08/05/22 0823 sodium chloride 0.9% (NS) flush 10 mL, 10 mL, IntraCATHeter, PRN, Juliana Tavares MD sodium chloride 0.9% (NS) flush 5-40 mL, 5-40 mL, IntraVENous, q12h, Vinsarah Koduru, DO, 10 mL at 08/05/22 0545 sodium chloride 0.9% (NS) flush 5-40 mL, 5-40 mL, IntraVENous, PRN, Antwon Barobururu, DO zonisamide (Zonegran) capsule 200 mg, 200 mg, Oral, Daily, Vinuth Koduru, DO, 200 mg at 08/05/22822 zonisamide (Zonegran) capsule 300 mg, 300 mg, Oral, Nightly, Vinuth Koduru, DO, 300 mg at 08/04/221952 Objective Physical Exam Physical Exam KARISHMA LIJTDC Non focal neuro +weakness Relevant Results Vital signs in last 24 hours: Temp: [36.1 C (97 F)-36.8 C (98.2 F)] 36.1 C (97 F) Heart Rate: [77-95] 77 Resp: [16] 16 BP: (107-122)/(69-78) 107/69 Intake/Output this shift: No intake/output data recorded. Intake/Output last 3 shifts: I/O last 3 completed shifts: In: 7.8 (0.1 mL/kg) [I.V.:4.3 (0.1 mL/kg); IV Piggyback:3.5] Out: - (0 mL/kg) Weight: 77.1 kg Labs: Results from last 7 days Lab Units 08/05/22 0543 WBC AUTO 10*3/uL 8.7 RBC AUTO 10*6/uL 4.39 HEMOGLOBIN g/dL 12.3 HEMATOCRIT % 37.8 Results from last 7 days Lab Units 08/05/22 0543 08/01/22 0359 07/31/22 0641 SODIUM mmol/L 141 < > 139 POTASSIUM mmol/L 3.8 < > 3.3* CHLORIDE mmol/L 111* < > 109* CO2 mmol/L 22 < > 22 BUN mg/dL 14 < > 8 CREATININE mg/dL 0.68 < > 0.67 CALCIUM mg/dL 8.8 < > 8.6 MAGNESIUM mg/dL -- -- 1.7 BILIRUBIN TOTAL mg/dL 0.4 < > 0.7 ALT U/L 12 < > 8 AST U/L 22 < > 17 < > = values in this interval not displayed. No lab exists for component: FATCASTU Principal Problem: Myasthenic crisis (HCC) Active Problems: Adjustment reaction with anxiety and depression - pheresis #4 and #5 and Wednesday respectively - get TDC removed on Wednesday prior to discharge Renny Cantor MD 08/05/2022 10:51 AM * Ayla Don MD - 08/05/2022 7:24 AM EDT Med Team Progress Note Doug Flanagan : 1990(31 y.o.) Date: August 05, 2022 Med Team: D Attending: Dr. Otto Chief Complaint: Impending myasthenic crisis Subjective: - No acute events overnight. - Patient was resting comfortably in bed during examination. She feels a great amount of improvement since admission but has not felt a dramatic change since the 3rd pheresis. Pt will receive 4th pheresis later this AM. Her strength has greatly improved and she was able to walk up and down the hallway. Her breathing has been stable but she is still complaining of a band-like sensation with inspiration that has minimally improved. Today, she complains of left chest catheter site pain after bumping the site yesterday. She rates the pain a 6/10. Pt is on day 5 of ketorolac and has had improvement in pain. Pt had 3 normal bowel movements in the last 24 hours. Denies fever, chills, nausea, vomiting, diarrhea, abdominal pain, headache, dizziness or any other current related symptoms. Patient getting 4th plasmapheresis treatment when seen this morning. She continues to note improvement in strength, able to walk the halls more and plans to do so again this afternoon/evening. Review of Systems Constitutional: Negative for appetite change, chills and fever. HENT: Negative for trouble swallowing. Eyes: Negative for pain and visual disturbance. Respiratory: Negative for apnea and cough. Cardiovascular: Negative for chest pain and leg swelling. Gastrointestinal: Negative for abdominal pain, constipation, diarrhea, nausea and vomiting. Genitourinary: Negative for difficulty urinating and dysuria. Musculoskeletal: Negative for arthralgias and back pain. Skin: Negative for rash. Pain around left catheter site Neurological: Negative for dizziness and headaches. Slight lower extremity weakness bilaterally. R>L. Psychiatric/Behavioral: Negative for agitation. Scheduled Meds:apixaban, 5 mg, Oral, BID docusate sodium, 100 mg, Oral, BID escitalopram, 10 mg, Oral, Daily heparin flush, 100 Units, IntraCATHeter, q12h lamoTRIgine, 100 mg, Oral, Daily lamoTRIgine, 250 mg, Oral, Nightly OXcarbazepine, 150 mg, Oral, Daily sennosides, 2 tablet, Oral, BID sodium chloride 0.9%, 10 mL, IntraCATHeter, q12h sodium chloride 0.9%, 5-40 mL, IntraVENous, q12h zonisamide, 200 mg, Oral, Daily zonisamide, 300 mg, Oral, Nightly Continuous Infusions:citrate dextrose, 100-200 mL/hr, Last Rate: 1,000 mL (08/01/22 1146) citrate dextrose, 100-200 mL/hr, Last Rate: 1,000 mL/hr (08/03/22 1326) PRN meds used in last 24hrs: hydroxyzine 25 mg, ketorolac 15 mg x 3, lorazepam 1 mg Objective: BP 107/69 (BP Location: Right arm, Patient Position: Sitting) Pulse 77 Temp 36.1 C (97 F) (Temporal) Resp 16 Ht 5' 2 (1.575 m) Wt 170 lb (77.1 kg) LMP 07/30/2022 SpO2 96% BMI 31.09 kg/m Physical Exam Constitutional: Appearance: Normal appearance. HENT: Head: Normocephalic and atraumatic. Eyes: Extraocular Movements: Extraocular movements intact. Conjunctiva/sclera: Conjunctivae normal. Pupils: Pupils are equal, round, and reactive to light. Cardiovascular: Rate and Rhythm: Normal rate and regular rhythm. Heart sounds: Normal heart sounds. Pulmonary: Effort: Pulmonary effort is normal. Breath sounds: Normal breath sounds. Comments: No respiratory distress noted. Able to deeply inspire and exhale. Abdominal: General: Abdomen is flat. Bowel sounds are normal. There is no distension. Palpations: Abdomen is soft. Musculoskeletal: General: Normal range of motion. Cervical back: Normal range of motion and neck supple. Skin: General: Skin is warm and dry. Comments: Tenderness to palpation of left tunneled catheter site. No overlying erythema or edema. Mediport catheter in place in right chest. No erythema or edema. Clean. Dry. No drainage noted. Neurological: General: No focal deficit present. Mental Status: She is alert. Comments: Mild weakness with leg raise bilaterally. R>L. Sensation grossly intact. Psychiatric: Mood and Affect: Mood normal. Behavior: Behavior normal. Select Labs within last 24 hours Auto WBC Date Value Ref Range Status 08/05/2022 8.7 3.6 - 10.7 10*3/uL Final Hemoglobin Date Value Ref Range Status 08/05/2022 12.3 11.7 - 16.0 g/dL Final Hematocrit Date Value Ref Range Status 08/05/2022 37.8 35.0 - 47.0 % Final Platelets Date Value Ref Range Status 08/05/2022 217 140 - 440 10*3/uL Final MCV Date Value Ref Range Status 08/05/2022 86.3 80.0 - 98.0 fL Final SODIUM Date Value Ref Range Status 08/05/2022 141 135 - 145 mmol/L Final POTASSIUM Date Value Ref Range Status 08/05/2022 3.8 3.5 - 5.1 mmol/L Final CHLORIDE Date Value Ref Range Status 08/05/2022 111 (H) 98 - 107 mmol/L Final CARBON DIOXIDE Date Value Ref Range Status 08/05/2022 22 22 - 30 mmol/L Final UREA NITROGEN Date Value Ref Range Status 08/05/2022 14 7 - 17 mg/dL Final CREATININE Date Value Ref Range Status 08/05/2022 0.68 0.52 - 1.04 mg/dL Final GLUCOSE Date Value Ref Range Status 08/05/2022 91 70 - 100 mg/dL Final CALCIUM Date Value Ref Range Status 08/05/2022 8.8 8.4 - 10.4 mg/dL Final AST (SGOT) Date Value Ref Range Status 08/05/2022 22 15 - 46 U/L Final ALT Date Value Ref Range Status 08/05/2022 12 0 - 34 U/L Final TOTAL PROTEIN Date Value Ref Range Status 08/05/2022 6.4 6.3 - 8.2 g/dL Final BILIRUBIN, TOTAL Date Value Ref Range Status 08/05/2022 0.4 0.2 - 1.3 mg/dL Final ALKALINE PHOSPHATASE Date Value Ref Range Status 08/05/2022 37 (L) 38 - 126 U/L Final No results found for: CKTOTAL, CKMB, TROPONINI No results found for: PROCAL, CHOL, TRIG, HDL, TSH, VITD25, HGBA1C, VANCOTROUGH Assessment and Plan: 31 year-old female with Myasthenia Gravis presented on 07/30 with impending myasthenic crisis. # Myasthenic crisis # Myastenia gravis - Patient follows with Dr. Gilmore neurology outpatient for Myasthenia Gravis, she was on Ultomiris infusions every 8 weeks until insurance rejected the most recent dose - Tunneled catheter was placed on 07/30 by IR - NIF with improving trend - S/P 3/5 plasmapharesis sessions, every other day per nephrology - Outpatient follow up with Neurology 3-4 weeks after discharge with appointment on 08/19/[address] Gilmore - Symptomatic control, PRN anti-emetics - Discontinue toradol (day 5). Will switch pain control meds to PRN Ibuprofen and scheduled Tylenol. - agree - Encourage PO intake - Encourage incentive spirometry - Pt is improving. Continue plasmapheresis sessions as planned today and Monday 08/07. # Breakthrough seizures # History of seizures - Follows with Dr. Gilmore, previously well controlled with AEDs until several days prior to admission when she woke up in a post-ictal state - Neurology was consulted - MR brain w and w/o contrast, MR C-spine w and w/o contrast were unremarkable - Check level of seizure medications (lamotrigine wnl) - Seizure precautions - Continue home AEDS- lamotrigine, zonisamide, Trileptal # Hypokalemia - resolved - Replace PRN # Depression # Anxiety - PRN Valium and lorazepam at home, does not take daily - Home lorazepem PRN ordered, hold off on Valium - When evaluated on 08/02, patient had anxiety exacerbation secondary to health- related issues, separation from son, and insurance issues - Hydroxyzine 25 mg PO q6h PRN for anxiety (second line) - Continue home escitalopram # History of clots in Mediport - Right Mediport was placed previously for her infusions - Mediport is currently not being used for infusions but is still flushed every 8 weeks - Hx of clot in port, patient on apixaban - Resume apixaban 5 mg PO BID # Constipation- resolved - Pt has now had 3 bowel movements in the last 24 hours - Abdomen is non-tender, non-distended and has + bowel sounds - PRN Docusate and Senna - Goals of Care: FULL CODE - DVT Prophylaxis: Eliquis - GI Prophylaxis: Not Indicated - Diet: General I saw and evaluated the patient independently. I agree with the medical student's assessment and made changes as needed to their note. I have discussed the care of Doug Flanagan with the medical student and/or resident. I have personally taken a history, examined the patient, and performed the associated medical decision making activities. I have reviewed & verified the attested documentation. Unless otherwise noted, this documentation reflects the history, physical exam, and medical decision making that I performed myself. Please see my personal additions in bold. Patient seen and examined by myself on 08/05/22 * Ayla Don MD - 08/04/2022 8:15 AM EDT Med Team Progress Note Doug Flanagan : 1990(31 y.o.) Date: August 04, 2022 Med Team: [place] Attending: Dr. Don Chief Complaint: Impending myasthenic crisis Subjective: - No acute events overnight. - The patient did not feel a dramatic change after her 3rd pheresis, but overall she feels much improved from admission. She has more strength and has been able to walk up and down the hallway. - Her breathing is stable. She still experiences some resistance to deep inspiration. The sensationis different now than before -- feels like a band of resistance concentrated in upper abdomen just inferior to the sternum. - Continues to experience pain at L chest catheter site. Improves with ketorolac. - Has had 1 small BM since senna was initiated yesterday. Patient doing well today after 3rd plasmapheresis session yesterday. She has been walking the hallsat the hospital and easier to sit from laying by herself. She continues to have a tight band-like sensation around her lower ribs, feels like too tight sports bra. Review of Systems Constitutional: Positive for diaphoresis. Negative for chills, fatigue and fever. Eyes: Negative for visual disturbance. Respiratory: Positive for chest tightness (resistance to deep inspiration). Negative for cough and shortness of breath. Cardiovascular: Negative for chest pain, palpitations and leg swelling. Gastrointestinal: Positive for constipation. Negative for abdominal pain, diarrhea, nausea and vomiting. Genitourinary: Negative for difficulty urinating and dysuria. Skin: Pain around left chest tunneled cath Neurological: Negative for dizziness, seizures, weakness, light-headedness and numbness. Scheduled Meds:apixaban, 5 mg, Oral, BID docusate sodium, 100 mg, Oral, BID escitalopram, 10 mg, Oral, Daily heparin flush, 100 Units, IntraCATHeter, q12h lamoTRIgine, 100 mg, Oral, Daily lamoTRIgine, 250 mg, Oral, Nightly OXcarbazepine, 150 mg, Oral, Daily sennosides, 2 tablet, Oral, BID sodium chloride 0.9%, 10 mL, IntraCATHeter, q12h sodium chloride 0.9%, 5-40 mL, IntraVENous, q12h zonisamide, 200 mg, Oral, Daily zonisamide, 300 mg, Oral, Nightly Continuous Infusions:citrate dextrose, 100-200 mL/hr, Last Rate: 1,000 mL (08/01/22 1146) citrate dextrose, 100-200 mL/hr, Last Rate: 1,000 mL/hr (08/03/22 1326) PRNs: hydroxyzine 25 mg x 1, ketorolac 15 mg x 2, lorazepam 1 mg x 1 Objective: BP 107/65 Pulse 82 Temp 36.5 C (97.7 F) Resp 16 Ht 5' 2 (1.575 m) Wt 170 lb (77.1 kg) LMP 07/30/2022 SpO2 97% BMI 31.09 kg/m Physical Exam Constitutional: General: She is not in acute distress. Appearance: Normal appearance. She is not ill-appearing. Eyes: Extraocular Movements: Extraocular movements intact. Conjunctiva/sclera: Conjunctivae normal. Pupils: Pupils are equal, round, and reactive to light. Cardiovascular: Rate and Rhythm: Normal rate and regular rhythm. Heart sounds: Normal heart sounds. Pulmonary: Effort: Pulmonary effort is normal. No respiratory distress. Breath sounds: Normal breath sounds. Comments: No respiratory distress noted. Able to deeply inspire and exhale. Abdominal: General: Bowel sounds are normal. There is no distension. Palpations: Abdomen is soft. Tenderness: There is no abdominal tenderness. Musculoskeletal: Right lower leg: No edema. Left lower leg: No edema. Skin: General: Skin is warm and dry. Comments: Tunneled cath placed on left chest, does have TTP, no surrounding erythema or edema. Mediport placed on right chest, no surrounding erythema or edema. Neurological: Mental Status: She is alert and oriented to person, place, and time. Cranial Nerves: No cranial nerve deficit. Sensory: No sensory deficit. Comments: Mild weakness with leg raise bilaterally, L > R (improved from prior). Intact strengthwith handgrip. Grossly intact sensation. Psychiatric: Mood and Affect: Mood normal. Behavior: Behavior normal. Comments: Pleasant. Select Labs within last 24 hours Auto WBC Date Value Ref Range Status 08/04/2022 8.2 3.6 - 10.7 10*3/uL Final Hemoglobin Date Value Ref Range Status 08/04/2022 12.1 11.7 - 16.0 g/dL Final Hematocrit Date Value Ref Range Status 08/04/2022 37.3 35.0 - 47.0 % Final Platelets Date Value Ref Range Status 08/04/2022 214 140 - 440 10*3/uL Final MCV Date Value Ref Range Status 08/04/2022 86.3 80.0 - 98.0 fL Final SODIUM Date Value Ref Range Status 08/04/2022 142 135 - 145 mmol/L Final POTASSIUM Date Value Ref Range Status 08/04/2022 3.6 3.5 - 5.1 mmol/L Final CHLORIDE Date Value Ref Range Status 08/04/2022 110 (H) 98 - 107 mmol/L Final CARBON DIOXIDE Date Value Ref Range Status 08/04/2022 23 22 - 30 mmol/L Final UREA NITROGEN Date Value Ref Range Status 08/04/2022 13 7 - 17 mg/dL Final CREATININE Date Value Ref Range Status 08/04/2022 0.69 0.52 - 1.04 mg/dL Final GLUCOSE Date Value Ref Range Status 08/04/2022 90 70 - 100 mg/dL Final CALCIUM Date Value Ref Range Status 08/04/2022 8.9 8.4 - 10.4 mg/dL Final AST (SGOT) Date Value Ref Range Status 08/04/2022 19 15 - 46 U/L Final ALT Date Value Ref Range Status 08/04/2022 10 0 - 34 U/L Final TOTAL PROTEIN Date Value Ref Range Status 08/04/2022 5.6 (L) 6.3 - 8.2 g/dL Final BILIRUBIN, TOTAL Date Value Ref Range Status 08/04/2022 0.4 0.2 - 1.3 mg/dL Final ALKALINE PHOSPHATASE Date Value Ref Range Status 08/04/2022 27 (L) 38 - 126 U/L Final No results found for: CKTOTAL, CKMB, TROPONINI No results found for: PROCAL, CHOL, TRIG, HDL, TSH, VITD25, HGBA1C, VANCOTROUGH Assessment and Plan: # Myasthenic crisis # Myasthenia gravis - Follows with Dr. Gilmore neurology outpatient for MG, was on every 8 week infusions of Ultomirisuntil insurance rejected recent dose - Tunneled catheter placed 07/30 by IR - NIF with improving trend - s/p 3rd of 5 plasmapheresis session, one every other day per nephrology - Neurology consulted, now signed off - Outpatient follow up 3-4 weeks after discharge - Discussed plan with Dr. Gilmore, who agrees with our management. Patient reports she has scheduled OP follow-up for 08/19/22. - Symptomatic control with PRN anti-emetics, ketorolac, acetaminophen - Discontinued maintenance fluids, encourage PO intake - Improving. Continue 2 additional plasmapheresis sessions as planned, wed and wed this week. # Breakthrough seizures # History of seizures - Follows with Dr. Gilmore for this as well; was previously well controlled on her anti-epilepticsuntil several days prior to admission when she woke up in post-ictal state - Neurology consulted as above - MR brain w and wo contrast, MR cervical spine w and wo contrast unremarkable - Check levels of seizure meds (in process) - Seizure precautions - Continue home AEDs - zonisamide, lamotrigine, Trileptal - agree # Hypokalemia, resolved - Replete PRN # Depression # Anxiety - Has PRN Valium and lorazepam at home but does not take daily - Home lorazepam PRN ordered, will hold off on Valium at this time - When evaluated 4/2 PM, appeared to have exacerbation of anxiety, health- related also related to separation from son and the frustrating insurance issue - agree - Start hydroxyzine 25 mg PO q6h PRN anxiety 2nd line - Continue home escitalopram - Psychology consulted, appreciate recommendations - Discussed treatment options with patient # History of clots in Mediport - Patient had right Mediport placed through which she got her infusions - Mediport not currently used for infusions. She still gets it flushed every 8 weeks. - Had history of clot in her port, so now on apixaban - No history of clots in extremities - Resumed apixaban 5 mg PO BID # Constipation, improved - Now having small BM - Abdomen non-tender, non-distended, +BS - Docusate 100 mg PO BID per patient request - Senna 2 tablets BID per patient request Disposition: Home pending completion of inpatient plasmapheresis (5 sessions). OP follow-up with established neurologist Dr. Gilmore 08/19/22. - Goals of Care: FULL CODE - DVT Prophylaxis: Eliquis - GI Prophylaxis: Not Indicated - Diet: General I have discussed the care of Dougemilie Flanagan with the medical student and/or resident. I have personally taken a history, examined the patient, and performed the associated medical decision making activities. I have reviewed & verified the attested documentation. Unless otherwise noted, this documentation reflects the history, physical exam, and medical decision making that I performed myself. Please see my personal additions in bold. Patient seen and examined by myself on 08/04/22 * Renny Cantor MD - 08/03/2022 4:42 PM EDT Indications for Dialysis No data to display Subjective Interval History: Doug Flanagan has none. Medications Current Facility-Administered Medications: acetaminophen (Tylenol) tablet 650 mg, 650 mg, Oral, q6h PRN, 650 mg at 07/31/222056 OR acetaminophen (Tylenol) suppository 650 mg, 650 mg, Rectal, q6h PRN, Antwon Nascimento DO apixaban (Eliquis) tablet 5 mg, 5 mg, Oral, BID, Antwon Nascimento DO, 5 mg at 08/03/22 0913 citrate dextrose (ACD-A) infusion, 100-200 mL/hr, IntraCATHeter, Continuous, Renny Cantor MD, Last Rate: 100 mL/hr at 08/01/22 1146, 1,000 mL at 08/01/22 1146 citrate dextrose (ACD-A) infusion, 100-200 mL/hr, CRRT, Continuous, Renny Cantor MD, Last Rate: 1,000 mL/hr at 08/03/22 1326, 1,000 mL/hr at 08/03/22 1326 docusate sodium (Colace) capsule 100 mg, 100 mg, Oral, BID, Tanner Wang MD, 100 mg at 08/03/22 0919 escitalopram (Lexapro) tablet 10 mg, 10 mg, Oral, Daily, Antwon Nascimento DO, 10 mg at 08/02/22 2123 heparin flush injection 100 Units, 100 Units, IntraCATHeter, q12h, Juliana Tavares MD, 100 Units at 08/03/22 0911 heparin flush injection 100 Units, 100 Units, IntraCATHeter, PRN, Juliana Tavares MD heparin injection 2,100 Units, 2,100 Units, IntraCATHeter, PRN, Renny Cantor MD, 2,100 Units at 08/03/22 1404 heparin injection 2,200 Units, 2,200 Units, IntraCATHeter, PRN, Renny Cantor MD, 2,200 Units at 08/03/22 1404 hydrOXYzine pamoate (Vistaril) capsule 25 mg, 25 mg, Oral, q6h PRN, Tanner Wang MD, 25 mg at 08/02/22 1353 ketorolac (Toradol) injection 15 mg, 15 mg, IntraVENous, q6h PRN, Juliana Tavares MD, 15 mg at 08/03/22 0616 lamoTRIgine (LaMICtal) tablet 100 mg, 100 mg, Oral, Daily, Antwon Nascimento DO, 100 mg at 08/03/22 0912 lamoTRIgine (LaMICtal) tablet 250 mg, 250 mg, Oral, Nightly, Vinuth Koduru, DO, 250 mg at 08/02/222122 LORazepam (Ativan) tablet 1 mg, 1 mg, Oral, q12h PRN, Vinuth Koduru, DO, 1 mg at 08/03/22 1153 ondansetron ODT (Zofran-ODT) disintegrating tablet 4 mg, 4 mg, Oral, q8h PRN OR ondansetron (Zofran) injection 4 mg, 4 mg, IntraVENous, q6h PRN, Vinuth Koduru, DO, 4 mg at 07/31/22 1628 OXcarbazepine (Trileptal) tablet 150 mg, 150 mg, Oral, Daily, Vinuth Koduru, DO, 150 mg at 124 polyethylene glycol (PEG) 3350 (Miralax) packet 17 g, 17 g, Oral, Daily PRN, Vinuth Koduru, DO sennosides (Senokot) tablet 17.2 mg, 2 tablet, Oral, BID, Tanner Wang MD, 17.2 mg at 08/03/22 1153 sodium chloride 0.9 % infusion, 5-250 mL/hr, IntraVENous, PRN, Vinuth Koduru, DO sodium chloride 0.9% (NS) flush 10 mL, 10 mL, IntraCATHeter, q12h, Juliana Tavares MD, 10 mL at 08/03/22 0910 sodium chloride 0.9% (NS) flush 10 mL, 10 mL, IntraCATHeter, PRN, Juliana Tavares MD sodium chloride 0.9% (NS) flush 5-40 mL, 5-40 mL, IntraVENous, q12h, Vinuth Koduru, DO, 10 mL at 08/03/22 0610 sodium chloride 0.9% (NS) flush 5-40 mL, 5-40 mL, IntraVENous, PRN, Vinuth Koduru, DO zonisamide (Zonegran) capsule 200 mg, 200 mg, Oral, Daily, Vinuth Koduru, DO, 200 mg at 08/03/22 0912 zonisamide (Zonegran) capsule 300 mg, 300 mg, Oral, Nightly, Vinuth Koduru, DO, 300 mg at 04/02/23 2124 Objective Physical Exam Physical Exam NAD [id number] Non focal neuro +weakness Relevant Results Vital signs in last 24 hours: Temp: [36.7 C (98 F)-36.8 C (98.2 F)] 36.7 C (98 F) Heart Rate: [77-86] 77 Resp: [16] 16 BP: (103-106)/(73-77) 103/77 Intake/Output this shift: No intake/output data recorded. Intake/Output last 3 shifts: No intake/output data recorded. Labs: Results from last 7 days Lab Units 08/03/22 0618 WBC AUTO 10*3/uL 7.6 RBC AUTO 10*6/uL 4.37 HEMOGLOBIN g/dL 12.4 HEMATOCRIT % 37.4 Results from last 7 days Lab Units 08/03/2218 08/01/229 07/31/2241 SODIUM mmol/L 141 < > 139 POTASSIUM mmol/L 3.6 < > 3.3* CHLORIDE mmol/L 110* < > 109* CO2 mmol/L 21* < > 22 BUN mg/dL 9 < > 8 CREATININE mg/dL 0.68 < > 0.67 CALCIUM mg/dL 8.8 < > 8.6 MAGNESIUM mg/dL -- -- 1.7 BILIRUBIN TOTAL mg/dL 0.3 < > 0.7 ALT U/L 11 < > 8 AST U/L 22 < > 17 < > = values in this interval not displayed. No lab exists for component: FATCASTU Principal Problem: Myasthenic crisis (HCC) - pheresis #4 and #5 and Wednesday respectively - get TDC removed on Wednesday prior to discharge Renny Cantor MD 08/03/2022 4:43 PM * Narcisa Rodas RN - 08/03/2022 2:05 PM EDT #3 TPE treatment completed as ordered Flowsheet in bedside chart * Ayla Don MD - 08/03/2022 7:10 AM EDT Med Team Progress Note Doug Flanagan : 1990(31 y.o.) Date: August 03, 2022 Med Team: [place] Attending: Dr. Don Chief Complaint: Impending myasthenic crisis Subjective: - No acute events overnight. She had an episode of severe anxiety late afternoon yesterday. This has since resolved. Hydroxyzine was ordered as a 2nd line PRN for anxiety in addition to her home lorazepam. She received both hydroxyzine 25 mg PO x 1 and lorazepam 1 mg PO x 1 yesterday. - This morning, the patient feels much better. She slept soundly. She has no headache or lightheadedness today and is in good spirits. She is scheduled for her 3rd of 5 plasmapheresis treatments today. - Her breathing is unchanged from yesterday but improved from admission. She experiences some resistance to deep inspiration. - Continues to experience pain at L chest catheter site. Improves with ketorolac. - Has not had BM in 2 days. Request senna 2 tablets BID in addition to docusate already ordered. Would prefer to hold off on PEG for now. Patient seen at bedside with her mother present in the room. She reports feeling better in terms ofrespiratory status after second plasmapheresis treatment with 3rd treatment planned for today. She feels pain at chest catheter site is improved. She notes some anxiety about the pending removal of the port when plasmapheresis sessions are all completed. Review of Systems Constitutional: Positive for chills and diaphoresis. Negative for fatigue and fever. Eyes: Negative for visual disturbance. Respiratory: Positive for chest tightness (resistance to deep inspiration). Negative for cough and shortness of breath. Cardiovascular: Negative for chest pain, palpitations and leg swelling. Gastrointestinal: Positive for constipation. Negative for abdominal pain, diarrhea, nausea and vomiting. Genitourinary: Negative for difficulty urinating and dysuria. Skin: Pain around left chest tunneled cath Neurological: Negative for dizziness, seizures, weakness, light-headedness and numbness. Scheduled Meds:apixaban, 5 mg, Oral, BID docusate sodium, 100 mg, Oral, BID escitalopram, 10 mg, Oral, Daily heparin flush, 100 Units, IntraCATHeter, q12h lamoTRIgine, 100 mg, Oral, Daily lamoTRIgine, 250 mg, Oral, Nightly OXcarbazepine, 150 mg, Oral, Daily sodium chloride 0.9%, 10 mL, IntraCATHeter, q12h sodium chloride 0.9%, 5-40 mL, IntraVENous, q12h zonisamide, 200 mg, Oral, Daily zonisamide, 300 mg, Oral, Nightly Continuous Infusions:citrate dextrose, 100-200 mL/hr, Last Rate: 1,000 mL (08/01/22 1146) PRNs: hydroxyzine 25 mg x 1, ketorolac 15 mg x 3, lorazepam 1 mg x 1 Objective: BP 103/77 (BP Location: Right arm, Patient Position: Lying) Pulse 77 Temp 36.7 C (98 F) (Temporal) Resp 16 Ht 5' 2 (1.575 m) Wt 170 lb (77.1 kg) LMP 07/30/2022 SpO2 96% BMI 31.09 kg/m Physical Exam Constitutional: General: She is not in acute distress. Appearance: Normal appearance. She is not ill-appearing. Eyes: Extraocular Movements: Extraocular movements intact. Conjunctiva/sclera: Conjunctivae normal. Pupils: Pupils are equal, round, and reactive to light. Cardiovascular: Rate and Rhythm: Normal rate and regular rhythm. Heart sounds: Normal heart sounds. Pulmonary: Effort: Pulmonary effort is normal. No respiratory distress. Breath sounds: Normal breath sounds. Comments: No respiratory distress noted. Able to deeply inspire and exhale. Abdominal: General: Bowel sounds are normal. There is no distension. Palpations: Abdomen is soft. Tenderness: There is no abdominal tenderness. Musculoskeletal: Right lower leg: No edema. Left lower leg: No edema. Skin: General: Skin is warm and dry. Comments: Tunneled cath placed on left chest, does have TTP, no surrounding erythema or edema. Mediport placed on right chest, no surrounding erythema or edema. Neurological: Mental Status: She is alert and oriented to person, place, and time. Cranial Nerves: No cranial nerve deficit. Sensory: No sensory deficit. Comments: Mild weakness with leg raise bilaterally, L > R (improved from prior). Intact strengthwith handgrip. Grossly intact sensation. Psychiatric: Mood and Affect: Mood normal. Behavior: Behavior normal. [facility] within last 24 hours No results found for: WBC, HGB, HCT, PLT, MCV No results found for: NA, K, CL, CO2, BUN, CREATININE, GLUCOSE, CALCIUM, MG, PHOS No results found for: AST, ALT, PROT, BILITOT, ALKPHOS, INR, APTT, LIPASE No results found for: CKTOTAL, CKMB, TROPONINI No results found for: PROCAL, CHOL, TRIG, HDL, TSH, VITD25, HGBA1C, VANCOTROUGH Assessment and Plan: # Myasthenic crisis # Myasthenia gravis - Follows with Dr. Gilmore neurology outpatient for MG, was on every 8 week infusions of Ultomirisuntil insurance rejected recent dose - Tunneled catheter placed 07/30 by IR - NIF with improving trend from -35 to -40; appreciate repeat measurements by RT - s/p 2nd of 5 plasmapheresis sessions, 3rd scheduled for today - nephrology placed orders - Patient will need 5 treatments, one every other day per nephrology - Neurology consulted, now signed off - Outpatient follow up 3-4 weeks after discharge - Left phone message with callback number to Dr. Gilmore to discuss post- hospitalization neurologyfollow-up (08/03/22) - Symptomatic control with PRN anti-emetics, ketorolac, acetaminophen - Discontinue maintenance fluids, encourage PO intake - Subjective improvement in respiratory status as well as objective evidence of improvement with improving NIF. Continue plan for 5 total plasmapheresis treatments every other day. # Breakthrough seizures # History of seizures - Follows with Dr. Gilmore for this as well; was previously well controlled on her anti-epilepticsuntil several days prior to admission when she woke up in post-ictal state - Neurology consulted as above - MR brain w and wo contrast, MR cervical spine w and wo contrast unremarkable - Check levels of seizure meds (in process) - Seizure precautions - Continue home AEDs - zonisamide, lamotrigine, Trileptal - agree # Hypokalemia, resolved - Replete PRN # Depression # Anxiety - Has PRN Valium and lorazepam at home but does not take daily - Home lorazepam PRN ordered, will hold off on Valium at this time - When evaluated 4/2 PM, appeared to have exacerbation of anxiety - Start hydroxyzine 25 mg PO q6h PRN anxiety 2nd line - Continue home escitalopram - Psychology consulted, appreciate recommendations (patient agreeable) - Situational anxiety during admission -- myron was not informed ahead of time that plasmapheresis would require admission, unexpected separation from her 10 year old son, frustration that this couldhave been prevented if insurance had approved prior treatment. Appreciate psychology recommendations. # History of clots in Mediport - Patient had right Mediport placed through which she got her infusions - Mediport not currently used for infusions. She still gets it flushed every 8 weeks. - Had history of clot in her port, so now on apixaban - No history of clots in extremities - Resumed apixaban 5 mg PO BID # Constipation - Last BM 07/31 - Abdomen non-tender, non-distended, +BS - Docusate 100 mg PO BID per patient request - Senna 2 tablets BID per patient request Disposition: Home pending completion of inpatient plasmapheresis (5 sessions). - Goals of Care: FULL CODE - DVT Prophylaxis: Eliquis - GI Prophylaxis: Not Indicated - Diet: General I have discussed the care of Doug Flanagan with the medical student and/or resident. I have personally taken a history, examined the patient, and performed the associated medical decision making activities. I have reviewed & verified the attested documentation. Unless otherwise noted, this documentation reflects the history, physical exam, and medical decision making that I performed myself. Please see my personal additions in bold. Patient seen and examined by myself on 08/03/22 * Lupe Painter MD - 08/02/2022 5:56 PM EDT Neurology update: MRI of the brain, thoracic and cervical spine are within normal limits. Neurology service is signing off. Please recall us if/as needed. The patient may be started on rehab after the completion of plasmapheresis treatment. Further recommendations, per primary and the other care providing teams. Outpatient neurology follow-up, 3 to 4 weeks post discharge. For further details recommendations, please review earlier neurology consultation note. Thank you. * Tanner Wang MD - 08/02/2022 7:12 AM EDT Med Team Progress Note Doug Flanagan : 1990(31 y.o.) Date: August 02, 2022 Med Team: [place] Attending: Dr. Kennedy Chief Complaint: Impending myasthenic crisis Subjective: - No acute events overnight. - This morning, the patient feels much better than before. She felt improvement soon after her 2nd plasmapheresis treatment. Her headache has resolved and her lightheadedness has significantly improved. She feels like she has more strength than before. - In terms of her breathing, she also has noticed improvement. She still feels some resistance to deep inspiration but not as much as before. - She denies any recent seizure-like activity. - She does feel constipated. She had a BM 2 days ago but not yesterday. She requests Colace for herconstipation. - Agreeable to discontinuing mIVF. Intends to increase PO intake. - Continues to experience pain at L chest catheter site. Improves with ketorolac. Agree with resident history, independently interviewed, in addition:seen with team on bedside rounds. Review of Systems Constitutional: Positive for chills and diaphoresis. Negative for fatigue and fever. Eyes: Negative for visual disturbance. Respiratory: Positive for chest tightness (resistance to deep inspiration). Negative for cough and shortness of breath. Cardiovascular: Negative for chest pain, palpitations and leg swelling. Gastrointestinal: Positive for constipation. Negative for abdominal pain, diarrhea, nausea and vomiting. Genitourinary: Negative for difficulty urinating and dysuria. Skin: Pain around left chest tunneled cath Neurological: Negative for dizziness, weakness, light-headedness and numbness. Agree with resident ROS, independently interviewed. Scheduled Meds:apixaban, 5 mg, Oral, BID escitalopram, 10 mg, Oral, Daily heparin flush, 100 Units, IntraCATHeter, q12h lamoTRIgine, 100 mg, Oral, Daily lamoTRIgine, 250 mg, Oral, Nightly OXcarbazepine, 150 mg, Oral, Daily sodium chloride 0.9%, 10 mL, IntraCATHeter, q12h sodium chloride 0.9%, 5-40 mL, IntraVENous, q12h zonisamide, 200 mg, Oral, Daily zonisamide, 300 mg, Oral, Nightly Continuous Infusions:citrate dextrose, 100-200 mL/hr, Last Rate: 1,000 mL (08/01/22 1146) lactated Ringer's, 100 mL/hr, Last Rate: 100 mL/hr (08/01/22 1501) PRNs: ketorolac 15 mg x 2, lorazepam 1 mg PO x 1 Objective: BP 111/69 (BP Location: Right arm, Patient Position: Lying) Pulse 76 Temp 36.9 C (98.4 F) (Temporal) Resp 16 Ht 5' 2 (1.575 m) Wt 170 lb (77.1 kg) LMP 07/30/2022 SpO2 97% BMI 31.09 kg/m Physical Exam Constitutional: General: She is not in acute distress. Appearance: Normal appearance. She is not ill-appearing. Eyes: Extraocular Movements: Extraocular movements intact. Conjunctiva/sclera: Conjunctivae normal. Pupils: Pupils are equal, round, and reactive to light. Cardiovascular: Rate and Rhythm: Normal rate and regular rhythm. Heart sounds: Normal heart sounds. Pulmonary: Effort: Pulmonary effort is normal. No respiratory distress. Breath sounds: Normal breath sounds. Comments: No respiratory distress noted. Able to deeply inspire and exhale. Abdominal: General: Bowel sounds are normal. There is no distension. Palpations: Abdomen is soft. Tenderness: There is no abdominal tenderness. Musculoskeletal: Right lower leg: No edema. Left lower leg: No edema. Skin: General: Skin is warm and dry. Comments: Tunneled cath placed on left chest, does have TTP, no surrounding erythema or edema. Mediport placed on right chest, no surrounding erythema or edema. Neurological: Mental Status: She is alert and oriented to person, place, and time. Cranial Nerves: No cranial nerve deficit. Sensory: No sensory deficit. Comments: Mild weakness with leg raise bilaterally, L > R. Intact strength with handgrip. Psychiatric: Mood and Affect: Mood normal. Behavior: Behavior normal. Agree with resident physical, independently examined. [facility] within last 24 hours Auto WBC Date Value Ref Range Status 08/02/2022 7.5 3.6 - 10.7 10*3/uL Final Hemoglobin Date Value Ref Range Status 08/02/2022 12.0 11.7 - 16.0 g/dL Final Hematocrit Date Value Ref Range Status 08/02/2022 36.3 35.0 - 47.0 % Final Platelets Date Value Ref Range Status 08/02/2022 192 140 - 440 10*3/uL Final MCV Date Value Ref Range Status 08/02/2022 85.2 80.0 - 98.0 fL Final No results found for: NA, K, CL, CO2, BUN, CREATININE, GLUCOSE, CALCIUM, MG, PHOS No results found for: AST, ALT, PROT, BILITOT, ALKPHOS, INR, APTT, LIPASE No results found for: CKTOTAL, CKMB, TROPONINI No results found for: PROCAL, CHOL, TRIG, HDL, TSH, VITD25, HGBA1C, VANCOTROUGH Assessment and Plan: # Myasthenic crisis # Myasthenia gravis - Follows with Dr. Gilmore neurology outpatient for MG, was on every 8 week infusions of Ultomirisuntil insurance rejected recent dose - Tunneled catheter placed 07/30 by IR - NIF with improving trend from -35 to -40; appreciate repeat measurements by RT - s/p 2nd of 5 plasmapheresis sessions - nephrology placed orders - Patient will need 5 treatments, one every other day per nephrology - Neurology consulted - Symptomatic control with PRN anti-emetics, ketorolac, acetaminophen - Discontinue maintenance fluids, encourage PO intake Agree # Breakthrough seizures # History of seizures - Follows with Dr. Gilmore for this as well; was previously well controlled on her anti-epilepticsuntil several days prior to admission when she woke up in post-ictal state - Neurology consulted - MR brain w and wo contrast, MR cervical spine w and wo contrast unremarkable - Check levels of seizure meds (in process) - Seizure precautions - Continue home AEDs - zonisamide, lamotrigine, Trileptal # Hypokalemia, resolved - Replete PRN # Depression # Anxiety - Takes PRN Valium and lorazepam but does not take daily - Home lorazepam PRN ordered, will hold off on Valium at this time - Continue home escitalopram # History of clots in Mediport - Patient had right Mediport placed through which she got her infusions - Mediport not currently used for infusions. She still gets it flushed every 8 weeks. - Had history of clot in her port, so now on apixaban - No history of clots in extremities - Resumed apixaban 5 mg PO BID # Constipation - Last BM 07/31 - Abdomen non-tender, non-distended, +BS - Docusate 100 mg PO BID per patient request - Goals of Care: FULL CODE - DVT Prophylaxis: Eliquis - GI Prophylaxis: Not Indicated - Diet: General I spent over 51% total time of 25 minutes counseling (or coordinating care) and provided discussionregarding plan of care which was discussed with patient and/or family. Also discussed with residentteam and mother Associated attestation - Adelfo Kennedy MD - 08/02/2022 12:14 PM EDT Attending Physician Statement I have discussed the care of Doug Flanagan, including pertinent history and exam findings, with the resident. I have seen and examined the patient and the brennan elements of all parts of the encounter have been performed by me. I agree with the resident note with my corrections and additions (in blue). (GC Modifier) * Case Arnold RN - 08/01/2022 1:03 PM EDT Second pheresis treatment completed. Tolerated well. Post bp 102/64. See bedside chart for vitals. * Gerri Lawton RRT - 08/01/2022 12:13 PM EDT Pt. NIF: -40 * Renny Cantor MD - 08/01/2022 10:35 AM EDT Renal Progress Note At imaging study Long talk with mother who is very tearful and unhappy over a number of things in her care, but not necessarily here Will do pheresis #2 today Next tx Wednesday Will need TDC removed after 5th and inal treament unless neuro recommends more treatments * Maude Perez DTR - 08/01/2022 9:47 AM EDT Nutrition rescreen completed. Chart reviewed. Patient to be monitored and followed by the diet building maintenance technician. * Tanner Wang MD - 08/01/2022 7:22 AM EDT Med Team Progress Note Doug Flanagan : 1990(31 y.o.) Date: August 01, 2022 Med Team: D Attending: Dr. Kennedy Chief Complaint: Impending myasthenic crisis Subjective: - No acute events overnight. - This morning, the patient feels more lightheaded than yesterday. She continues to have a headache, though this time it is more so on the R side than the left. - She has some difficulty breathing secondary to chest tightness: feels like she experiences resistance on inspiration. - Endorses nausea. No vomiting today. - No martinez seizure-like activity, but has been experiencing some twitching. She has home lorazepam PRN -for anxiety on order in addition to scheduled AEDs. - Patient felt like she got a second wind after first plasmapheresis. - Also endorses cough, chills, fatigue. - Scheduled for 2nd of 5 plasmapheresis treatments today. Also will get MRI. Agree with resident history, independently interviewed, in addition: initially spoke with mother while Ms. Camacho was getting her MRI and then later met with patient during bedside rounds. Bother express frustration over insurance issue/inability to get the treatments outpatient. Ms. Camacho does say that this crisis is worse than previous one, in that it really affected her ability to walk and has trouble keeping neck up (which was not the case previous episode). She is having some catching of her breath, but not short of breath. Excited to continue treatment and eventually get back home toher son. She is hungry and food is on the way. Review of Systems Constitutional: Positive for chills and fatigue. Negative for fever. Eyes: Positive for visual disturbance (blurry vision). Respiratory: Positive for chest tightness. Negative for cough and shortness of breath. Cardiovascular: Negative for chest pain, palpitations and leg swelling. Gastrointestinal: Positive for abdominal pain and nausea. Negative for constipation, diarrhea and vomiting. Genitourinary: Negative for difficulty urinating. Skin: Pain around left chest tunneled cath Neurological: Positive for light-headedness (R side). Negative for dizziness, weakness and numbness. Agree with resident ROS, independently interviewed. Scheduled Meds:apixaban, 5 mg, Oral, BID escitalopram, 10 mg, Oral, Daily heparin flush, 100 Units, IntraCATHeter, q12h lamoTRIgine, 100 mg, Oral, Daily lamoTRIgine, 250 mg, Oral, Nightly OXcarbazepine, 150 mg, Oral, Daily sodium chloride 0.9%, 10 mL, IntraCATHeter, q12h sodium chloride 0.9%, 5-40 mL, IntraVENous, q12h zonisamide, 200 mg, Oral, Daily zonisamide, 300 mg, Oral, Nightly Continuous Infusions:lactated Ringer's, 100 mL/hr, Last Rate: 100 mL/hr (08/01/22 0400) PRNs: ketorolac 15 mg x 3, Zofran x 1 Objective: BP 114/72 (BP Location: Right arm, Patient Position: Lying) Pulse 74 Temp 36.4 C (97.6 F) (Temporal) Resp 16 Ht 5' 2 (1.575 m) Wt 170 lb (77.1 kg) LMP 07/30/2022 SpO2 97% BMI 31.09 kg/m Physical Exam Constitutional: General: She is not in acute distress. Appearance: Normal appearance. She is not ill-appearing. Eyes: Extraocular Movements: Extraocular movements intact. Conjunctiva/sclera: Conjunctivae normal. Pupils: Pupils are equal, round, and reactive to light. Cardiovascular: Rate and Rhythm: Normal rate and regular rhythm. Heart sounds: Normal heart sounds. Pulmonary: Effort: Pulmonary effort is normal. No respiratory distress. Breath sounds: Normal breath sounds. Abdominal: General: Bowel sounds are normal. There is no distension. Palpations: Abdomen is soft. Tenderness: There is no abdominal tenderness. Musculoskeletal: Right lower leg: No edema. Left lower leg: No edema. Skin: General: Skin is warm and dry. Comments: Tunneled cath placed on left chest, does have TTP, no surrounding erythema or edema. Mediport placed on right chest, no surrounding erythema or edema. Neurological: Mental Status: She is alert and oriented to person, place, and time. Cranial Nerves: No cranial nerve deficit. Sensory: No sensory deficit. Comments: Mild weakness with leg raise bilaterally. Intact strength with handgrip. Psychiatric: Mood and Affect: Mood normal. Behavior: Behavior normal. Agree with resident physical, independently examined, in addition: Able to breathe deep breath No eyelid drooping noted, feet are still week, per patient, similar to yesterday. [facility] within last 24 hours Auto WBC Date Value Ref Range Status 08/01/2022 6.4 3.6 - 10.7 10*3/uL Final Hemoglobin Date Value Ref Range Status 08/01/2022 11.7 11.7 - 16.0 g/dL Final Hematocrit Date Value Ref Range Status 08/01/2022 35.2 35.0 - 47.0 % Final Platelets Date Value Ref Range Status 08/01/2022 192 140 - 440 10*3/uL Final MCV Date Value Ref Range Status 08/01/2022 84.9 80.0 - 98.0 fL Final SODIUM Date Value Ref Range Status 08/01/2022 140 135 - 145 mmol/L Final POTASSIUM Date Value Ref Range Status 08/01/2022 3.7 3.5 - 5.1 mmol/L Final CHLORIDE Date Value Ref Range Status 08/01/2022 112 (H) 98 - 107 mmol/L Final CARBON DIOXIDE Date Value Ref Range Status 08/01/2022 21 (L) 22 - 30 mmol/L Final UREA NITROGEN Date Value Ref Range Status 08/01/2022 8 7 - 17 mg/dL Final CREATININE Date Value Ref Range Status 08/01/2022 0.69 0.52 - 1.04 mg/dL Final GLUCOSE Date Value Ref Range Status 08/01/2022 92 70 - 100 mg/dL Final CALCIUM Date Value Ref Range Status 08/01/2022 8.4 8.4 - 10.4 mg/dL Final AST (SGOT) Date Value Ref Range Status 08/01/2022 16 15 - 46 U/L Final ALT Date Value Ref Range Status 08/01/2022 8 0 - 34 U/L Final TOTAL PROTEIN Date Value Ref Range Status 08/01/2022 5.8 (L) 6.3 - 8.2 g/dL Final BILIRUBIN, TOTAL Date Value Ref Range Status 08/01/2022 0.2 0.2 - 1.3 mg/dL Final ALKALINE PHOSPHATASE Date Value Ref Range Status 08/01/2022 44 38 - 126 U/L Final No results found for: CKTOTAL, CKMB, TROPONINI No results found for: PROCAL, CHOL, TRIG, HDL, TSH, VITD25, HGBA1C, VANCOTROUGH Assessment and Plan: # Myasthenic crisis # Myasthenia gravis - Follows with Dr. Gilmore neurology outpatient for MG, was on every 8 week infusions of Ultomirisuntil insurance rejected recent dose - Tunneled catheter placed 07/30 by IR - NIF -35 yesterday, appreciate RT measurement today -improved even more to -40 today - s/p first of 5 plasmapheresis session - nephrology placed orders - Patient will need 5 treatments, one every other day per nephrology - Neurology consulted - Symptomatic control with PRN anti-emetics, ketorolac, acetaminophen - Follow up ESR - Continue LR 100 mL/hr # Breakthrough seizures # History of seizures - Follows with Dr. Gilmore for this as well; was previously well controlled on her anti-epilepticsuntil several days prior to admission when she woke up in post-ictal state - Neurology consulted - MR brain w and wo contrast, MR cervical spine w and wo contrast - Check levels of seizure meds (in process) - Seizure precautions - Continue home AEDs - zonisamide, lamotrigine, Trileptal # Hypokalemia, resolved - Replete PRN # Depression # Anxiety - Takes PRN Valium and lorazepam but does not take daily, last doses over several days ago - Home lorazepam PRN ordered, will hold off on Valium at this time - Continue home escitalopram # History of clots in Mediport - Patient has right Mediport placed through which she got her infusions - Mediport not currently used for infusions. She gets it flushed every 8 weeks. - Had history of clot in her port, so now on apixaban - No history of clots in extremities - Resumed apixaban 5 mg PO BID - Goals of Care: FULL CODE - DVT Prophylaxis: Eliquis - GI Prophylaxis: Not Indicated - Diet: General I spent over 51% total time of 35 minutes counseling (or coordinating care) and provided discussionregarding plan of care which was discussed with patient and/or family. Also discussed with residentteam and mother. Associated attestation - Adelfo Kennedy MD - 08/01/2022 2:45 PM EDT Attending Physician Statement I have discussed the care of Doug Flanagan, including pertinent history and exam findings, with the resident. I have seen and examined the patient and the brennan elements of all parts of the encounter have been performed by me. I agree with the resident note with my corrections and additions (in blue). (GC Modifier) * Gerri Lawton RRT - 07/31/2022 8:22 AM EDT NIF: -35 * Ward Zhao DO - 07/31/2022 7:17 AM EDT Med Team Progress Note Doug Flanagan : 1990(31 y.o.) Date: July 31, 2022 Med Team: [facility] Attending: Dr. Zhao Chief Complaint: Impending MG crisis Subjective: - No acute events overnight. - Currently, patient has left sided headache, continues to have double vision. Overall feels slightly improved since her first plasmapheresis session - states she feels like she has a second wind in which she does not feel as well. Continues to have nausea, vomited 3 times overnight. - Continues to pain over left chest tunneled cath site - Does have some chest MSK tightness in which she feels like she cannot take an adequate breath - Denies any lightheadedness, dizziness, sensory deficit; denies any issues with drooling, eating -was able to tolerate her breakfast without issue Review of Systems Constitutional: Positive for chills and fatigue. HENT: Negative for drooling and trouble swallowing. Eyes: Positive for visual disturbance (blurry vision). Respiratory: Negative for cough, chest tightness and shortness of breath. Cardiovascular: Negative for chest pain and leg swelling. Gastrointestinal: Positive for abdominal pain, nausea and vomiting. Negative for constipation and diarrhea. Genitourinary: Negative for difficulty urinating. Skin: Pain around left chest tunneled cath Neurological: Positive for weakness and headaches. Negative for dizziness, light-headedness and numbness. Scheduled Meds:[Held by provider] apixaban, 5 mg, Oral, BID escitalopram, 10 mg, Oral, Daily lamoTRIgine, 100 mg, Oral, Daily lamoTRIgine, 250 mg, Oral, Nightly OXcarbazepine, 150 mg, Oral, Daily sodium chloride 0.9%, 5-40 mL, IntraVENous, q12h zonisamide, 200 mg, Oral, Daily zonisamide, 300 mg, Oral, Nightly Continuous Infusions: Objective: BP 100/64 (BP Location: Left arm, Patient Position: Lying) Pulse 88 Temp 36.8 C (98.3 F) (Oral) Resp 18 Ht 5' 2 (1.575 m) Wt 170 lb (77.1 kg) LMP 07/30/2022 SpO2 98% BMI 31.09 kg/m Physical Exam Constitutional: General: She is not in acute distress. Appearance: Normal appearance. She is not ill-appearing. Comments: Overall appears more comfortable compared to yesterday HENT: Mouth/Throat: Mouth: Mucous membranes are dry. Eyes: Extraocular Movements: Extraocular movements intact. Conjunctiva/sclera: Conjunctivae normal. Pupils: Pupils are equal, round, and reactive to light. Cardiovascular: Rate and Rhythm: Normal rate and regular rhythm. Pulmonary: Effort: Pulmonary effort is normal. No respiratory distress. Breath sounds: Normal breath sounds. Abdominal: General: Bowel sounds are normal. There is no distension. Palpations: Abdomen is soft. Tenderness: There is no abdominal tenderness. Musculoskeletal: Right lower leg: No edema. Left lower leg: No edema. Skin: General: Skin is warm and dry. Comments: Tunneled cath placed on left chest, does have TTP, no surrounding erythema or edema. Mediport placed on right chest, no surrounding erythema or edema Neurological: Mental Status: She is alert and oriented to person, place, and time. Sensory: No sensory deficit. Motor: No weakness. [facility] Labs within last 24 hours Auto WBC Date Value Ref Range Status 07/31/2022 10.0 3.6 - 10.7 10*3/uL Final Hemoglobin Date Value Ref Range Status 07/31/2022 13.0 11.7 - 16.0 g/dL Final 07/30/2022 13.6 11.7 - 16.0 g/dL Final 07/30/2022 13.0 11.7 - 16.0 g/dL Final Hematocrit Date Value Ref Range Status 07/31/2022 38.9 35.0 - 47.0 % Final Platelets Date Value Ref Range Status 07/31/2022 202 140 - 440 10*3/uL Final MCV Date Value Ref Range Status 07/31/2022 84.5 80.0 - 98.0 fL Final SODIUM Date Value Ref Range Status 07/31/2022 139 135 - 145 mmol/L Final POTASSIUM Date Value Ref Range Status 07/31/2022 3.3 (L) 3.5 - 5.1 mmol/L Final CHLORIDE Date Value Ref Range Status 07/31/2022 109 (H) 98 - 107 mmol/L Final CARBON DIOXIDE Date Value Ref Range Status 07/31/2022 22 22 - 30 mmol/L Final UREA NITROGEN Date Value Ref Range Status 07/31/2022 8 7 - 17 mg/dL Final CREATININE Date Value Ref Range Status 07/31/2022 0.67 0.52 - 1.04 mg/dL Final 07/30/2022 0.62 0.52 - 1.04 mg/dL Final GLUCOSE Date Value Ref Range Status 07/31/2022 94 70 - 100 mg/dL Final CALCIUM Date Value Ref Range Status 07/31/2022 8.6 8.4 - 10.4 mg/dL Final MAGNESIUM Date Value Ref Range Status 07/30/2022 1.9 1.6 - 2.3 mg/dL Final AST (SGOT) Date Value Ref Range Status 07/31/2022 17 15 - 46 U/L Final ALT Date Value Ref Range Status 07/31/2022 8 0 - 34 U/L Final TOTAL PROTEIN Date Value Ref Range Status 07/31/2022 5.9 (L) 6.3 - 8.2 g/dL Final BILIRUBIN, TOTAL Date Value Ref Range Status 07/31/2022 0.7 0.2 - 1.3 mg/dL Final ALKALINE PHOSPHATASE Date Value Ref Range Status 07/31/2022 43 38 - 126 U/L Final No results found for: CKTOTAL, CKMB, TROPONINI No results found for: PROCAL, CHOL, TRIG, HDL, TSH, VITD25, HGBA1C, VANCOTROUGH Assessment and Plan: Myasthenic Crisis -Follows with Dr. Gilmore neurology outpatient for MG, was on every 8 week infusions of Ultomiris until insurance rejected recent dose -Tunneled cathter placed 07/30 by IR -NIF overnight -20, this am patient without any drooling, SOB, trouble swallowing; repeat NIF this AM -35 (improved) -S/p 05/07 plasmapheresis session - nephrology placed orders -Patient will need 5 treatments, one every other day per nephrology unless neuro recommends otherwise -Neurology consulted -Symptomatic control with PRN anti-emetics, Toradol, tylenol -Start LR 100ml/hr for hypotension Hypokalemia -Replete PRN Breakthrough seizure History of seizures -Follows with Dr. Gilmore for this as well; was previously well controlled on her anti-epileptics until several days ago when she woke up in post-ictal state -Neurology consulted -Check levels of seizure meds -Seizure precautions -Continue home AED - Zonegran, Lamictal, Trileptal Depression, anxiety -Takes PRN Valium and Ativan but does not take daily, last doses over several days ago -Home ativan PRN ordered, will hold off on valium at this time -Continue home lexapro Mediport placed, on chronic anticoagulation -Patient has right mediport placed in which she gets her infusions through; had history of clot in her port in which she is now on eliquis for. No history of clots in extremities -Will resume eliquis today - Goals of Care: FULL CODE - DVT Prophylaxis: Eliquis - GI Prophylaxis: Not Indicated - Diet: General I have discussed the care of Doug Flanagan with the medical student and resident. I have personally taken a history, examined the patient, and performed the associated medical decision making activities. I have reviewed & verified the attested documentation. Unless otherwise noted below, this documentation reflects the history, physical exam, and medical decision making that I performed myself. Please see below for my personal highlights or additions to the note. Attending comments are in green. Please see attending comments on H&P. * Sruthi Bray RCP - 07/30/2022 11:10 PM EDT NIF -20 3 attempts made documented in this [facility]04-06-2023 NoteRenal Progress Note Chart reviewed Needs pheresis #5 tomorrow with tunneled HD line removal to follow Ok to discharge afterwards Does NOT need follow up with nephrology afterwards To go back to Dr. Gilmore as [facility]04-06-2023 Note* Care Coordination - DARRION Salamanca - 08/06/2022 4:24 PM EDT Dakota met with patient for follow-up on psychology consult which was completed on 08/03. Pt experiencing anxiety while in the hospital surrounding being away from her son, dog and attempting to get hermedication approved. Pt reports doing better. Endorses some situational anxiety as mentioned above but denies any chronic mental health symptoms. Pt reports she has been utilize her coping skills such as meditation, word books, and talking to her family. Discussed outpatient MH services with pt. At this time pt denies need for behavioral health supportas she reports her anxiety is related to situational concerns. Dakota did educate pt on [facility] which provides outpatient/crisis MH services in her area. Pt was also provided with [place] business card for behavioral health support while in the community. Pt thanked Dakota and was agreeable to contact Dakota if needed. [id number]* Care Coordination - DARRION Salamanca - 08/06/2022 4:24 PM EDT Dakota met with patient for follow-up on psychology consult which was completed on 08/03. Pt experiencing anxiety while in the hospital surrounding being away from her son, dog and attempting to get hermedication approved. Pt reports doing better. Endorses some situational anxiety as mentioned above but denies any chronic mental health symptoms. Pt reports she has been utilize her coping skills such as meditation, word books, and talking to her family. Discussed outpatient MH services with pt. At this time pt denies need for behavioral health supportas she reports her anxiety is related to situational concerns. Dakota did educate pt on [facility] which provides outpatient/crisis MH services in her area. Pt was also provided with [place] business card for behavioral health support while in the community. Pt thanked Dakota and was agreeable to contact Dakota if needed. [id number] NoteMed Team Progress Note Doug Flanagan : 1990(31 y.o.) Date: August 06, 2022 Med Team: [place] Attending: Dr. Otto Chief Complaint: Impending myasthenic crisis Subjective: - Overnight, patient experienced pain around L chest catheter insertion site. Overnight resident offered tizanidine but patient declined. Received ibuprofen 600 mg x 2 and lorazepam 1 mg PO x 1. - This morning, patient is still experiencing tenderness at the insertion site of L dialysis catheter. Tylenol and ibuprofen are not helping. After receiving the lorazepam last night and doing some meditation, patient was able to get some rest. She requests an additional dose lorazepam today after breakfast. She thinks she can tide herself over until the final pheresis tomorrow. - Breathing is stable, overall improved over course of admission. - Increased strength. Able to ambulate down hallway and back. - Now having regular bowl movements. Patient with increased pain around dialysis catheter site which she attributes to discontinuation of ketorolac. Pain is tolerable and she is aware that the catheter will be removed tomorrow after plasmapheresis. She has been up walking in the hallways again. Review of Systems Constitutional: Negative for appetite change, chills and fever. HENT: Negative for trouble swallowing. Eyes: Negative for pain and visual disturbance. Respiratory: Negative for apnea and cough. Cardiovascular: Negative for chest pain and leg swelling. Gastrointestinal: Negative for abdominal pain, constipation, diarrhea, nausea and vomiting. Genitourinary: Negative for difficulty urinating and dysuria. Musculoskeletal: Negative for arthralgias and back pain. Skin: Negative for rash. Pain around left catheter site Neurological: Negative for dizziness and headaches. Psychiatric/Behavioral: Negative for agitation. Scheduled Meds:acetaminophen, 1,000 mg, Oral, TID apixaban, 5 mg, Oral, BID escitalopram, 10 mg, Oral, Daily heparin flush, 100 Units, IntraCATHeter, q12h lamoTRIgine, 100 mg, Oral, Daily lamoTRIgine, 250 mg, Oral, Nightly OXcarbazepine, 150 mg, Oral, Daily sodium chloride 0.9%, 10 mL, IntraCATHeter, q12h sodium chloride 0.9%, 5-40 mL, IntraVENous, q12h tiZANidine, 2 mg, Oral, Once zonisamide, 200 mg, Oral, Daily zonisamide, 300 mg, Oral, Nightly Continuous Infusions:citrate dextrose, 100-200 mL/hr, Last Rate: 1,000 mL (08/01/22 1146) citrate dextrose, 100-200 mL/hr, Last Rate: 1,000 mL/hr (08/05/22 1037) PRN meds used in last 24hrs: ibuprofen 600 mg x 2, lorazepam 1 mg x 2 Objective: BP 122/68 (BP Location: Right arm, Patient Position: Lying) Pulse 95 Temp 36.2 ?C (97.2 ?F) (Temporal) Resp 16 Ht 5' 2.01 (1.575 m) Wt 169 lb 15.6 oz (77.1 kg) LMP 07/30/2022 SpO2 98% BMI 31.08 kg/m? Physical Exam Constitutional: Appearance: Normal appearance. HENT: Head: Normocephalic and atraumatic. Eyes: Extraocular Movements: Extraocular movements intact. Conjunctiva/sclera: Conjunctivae normal. Pupils: Pupils are equal, round, and reactive to light. Cardiovascular: Rate and Rhythm: Normal rate and regular rhythm. Heart sounds: Normal heart sounds. Pulmonary: Effort: Pulmonary effort is normal. Breath sounds: Normal breath sounds. Comments: No respiratory distress noted. Able to deeply inspire and exhale. Abdominal: General: Abdomen is flat. Bowel sounds are normal. There is no distension. Palpations: Abdomen is soft. Musculoskeletal: General: Normal range of motion. Cervical back: Normal range of motion and neck supple. Skin: General: Skin is warm and dry. Comments: Tenderness to palpation of left tunneled catheter site. No overlying erythema or edema. Mediport catheter in place in right chest. No erythema or edema. Clean. Dry. No drainage noted. Neurological: General: No focal deficit present. Mental Status: She is alert. Comments: Intact motor strength bilateral UE and LE. Sensation grossly intact. Psychiatric: Mood and Affect: Mood normal. Behavior: Behavior normal. [facility] Labs within last 24 hours No results found for: WBC, HGB, HCT, PLT, MCV No results found for: NA, K, CL, CO2, BUN, CREATININE, GLUCOSE, CALCIUM, MG, PHOS No results found for: AST, ALT, PROT, BILITOT, ALKPHOS, INR, APTT, LIPASE No results found for: CKTOTAL, CKMB, TROPONINI No results found for: PROCAL, CHOL, TRIG, HDL, TSH, VITD25, HGBA1C, VANCOTROUGH Assessment and Plan: # Myasthenic crisis # Myasthenia gravis - Patient follows with Dr. Gilmore neurology outpatient for myasthenia gravis, she was on Ultomiris infusions every 8 weeks until insurance rejected the most recent dose - Tunneled catheter was placed on 07/30 by IR - NIF with improving trend - s/p 4/5 plasmapharesis sessions, every other day per nephrology - 5th and last plasmapheresis Wednesday, 08/07 - Remove L dialysis catheter before discharge - Outpatient follow-up appoint (more content not included)...[facility]04-06-2023 Note* Significant Event - Geovani Srivastava DO - 08/06/2022 12:00 AM EDT Paged by nursing staff that the patient was having increasing left chest pain at the site of her line placement. On my evaluation there is no crepitus, discharge, erythema, or edema. Patient does notappear to be in any respiratory distress and is having no shortness of breath. She states that she was concerned that she may have a clot in the line as it feels similar but not completely the same as when she had a clot on the right side in the line. She states however that the Plex treatment today was able to run without any difficulties. Patient does have pain with flexion of her neck and rotation towards the left side. I do believe that this is most likely musculoskeletal pain as she complains that the pain seems more left-sided in her neck with radiation from her chest port. After reviewing her medications I did explain to her that I would like to try a muscle relaxant as I believe that her pain is musculoskeletal and etiology. After reviewing her orders I did place an order for tizanidine 2 mg p.o. I informed the nurse that her blood pressure has been on the slightly softer side and that she is not to get up out of bed without first using her call light and having people presentto help her. Vitals were reviewed. Geovani Srivastava DO, MS, PGY-1 08/06/22 at 12:00 AM Shortly after evaluating patient the nurse did message me that the patient had googled tizanidine and it was listed as one of the top 3 medications not to receive with myasthenia's gravis. Based on this the patient refused the medication. Nursing was asking for more Toradol for the patient however after reviewing the patient's MAR she has had several days of Toradol. I did inform the nurse that we could do p.o. ibuprofen however did not want to give any further ketorolac. I also explained to the nurse that we could try heat to the area as well as a lidocaine patch. The nurse did state that she just given the patient Ativan and I did not receive any further communications regarding this patient. Geovani Srivastava DO, MS, PGY-1 08/06/22 at 3:31 AM [employer] Phone: [phone] 575-272004-06-2023 Note* Significant Event - Geovani Srivastava DO - 08/06/2022 12:00 AM EDT Paged by nursing staff that the patient was having increasing left chest pain at the site of her line placement. On my evaluation there is no crepitus, discharge, erythema, or edema. Patient does notappear to be in any respiratory distress and is having no shortness of breath. She states that she was concerned that she may have a clot in the line as it feels similar but not completely the same as when she had a clot on the right side in the line. She states however that the Plex treatment today was able to run without any difficulties. Patient does have pain with flexion of her neck and rotation towards the left side. I do believe that this is most likely musculoskeletal pain as she complains that the pain seems more left-sided in her neck with radiation from her chest port. After reviewing her medications I did explain to her that I would like to try a muscle relaxant as I believe that her pain is musculoskeletal and etiology. After reviewing her orders I did place an order for tizanidine 2 mg p.o. I informed the nurse that her blood pressure has been on the slightly softer side and that she is not to get up out of bed without first using her call light and having people presentto help her. Vitals were reviewed. Geovani Srivastava DO, MS, PGY-1 08/06/22 at 12:00 AM Shortly after evaluating patient the nurse did message me that the patient had googled tizanidine and it was listed as one of the top 3 medications not to receive with myasthenia's gravis. Based on this the patient refused the medication. Nursing was asking for more Toradol for the patient however after reviewing the patient's MAR she has had several days of Toradol. I did inform the nurse that we could do p.o. ibuprofen however did not want to give any further ketorolac. I also explained to the nurse that we could try heat to the area as well as a lidocaine patch. The nurse did state that she just given the patient Ativan and I did not receive any further communications regarding this patient. Geovani Srivastava DO, MS, PGY-1 08/06/22 at 3:31 AM [employer] Work Phone: [phone] 205-709904-05-2023 NoteDischarge Summary Doug Flanagan : 1990 ADMIT DATE: 07/30/2022 DISCHARGE DATE: 08/05/2022 PRIMARY CARE PHYSICIAN: DONNA PERDOMO VISIT STATUS: Admission CODE STATUS: Full Code DISCHARGE DIAGNOSES: Primary diagnosis: - Myasthenic crisis Secondary diagnoses: - Myasthenia gravis - History of seizures - Depression - Anxiety - History of clots in R Mediport - Constipation, resolved - Hypokalemia, resolved HOSPITAL COURSE: 31F with PMH myasthenia gravis (diagnosed 2017), history of seizure, and depression who presented to [facility] on 07/30/22 for impending myasthenic crisis. Patient's MG had been well controlled on Ultramoris infusions every 8 weeks (started 2 years ago). Her last infusion was in 05/2022. She was supposed to have the next infusion on 07/21/22 but there was an issue with insurance payment so she was unable to get the treatment. She then started experiencing headache, blurry vision, double vision, trouble breathing, and generalized weakness concerning for myasthenic crisis. The patient was admitted to [facility] to undergo plasmapheresis. A L tunneled dialysis catheter was placed. The patient received 5 plasmapheresis treatments total. Her symptoms had improved significantly after the 2nd treatment. In addition to subjective improvements in SOB and strength, NIF measurements improved over the course of several days. Home AEDs were continued for seizure history. No seizure-like activity was noticed this admission. Health-associated anxiety was controlled with home medications and additional hydroxyzine PRN. Apixaban was resumed for history of clots in R Mediport. The patient was discharged home in stable condition with plan to follow up with outpatient neurologist Dr. Gilmore on 4/19/23. SIGNIFICANT DIAGNOSTIC STUDIES: MR brain with and without contrast 08/01/22 IMPRESSION: Normal MRI of the brain with and without contrast. MR cervical/thoracic spine with and without contrast 08/01/22 IMPRESSION: 1. Normal appearance of the cervical and thoracic spinal cord. Negative study. 2. Incidental 9 mm osseous lesion in the parasymphysis of the left hemimandible which is most likely a odontogenic inflammatory lesion but otherwise not characterized on this exam. NIF 07/30/22: -20 NIF 08/01/22: -40 CONSULTANTS: - Psychiatry: treatment options discussed. No additional medications or therapy at this time. - Nephrology: consulted for plasmapheresis. - Neurology: Agreed with plasmapheresis. Recommended MR brain and cervical/thoracic spine, which were negative for acute finding. RECOMMENDED NEXT STEPS: - Follow up with neurologist for long-term treatment of myasthenia gravis. - Incidental finding of likely dental lesion on MRI was discussed with the patient and her family. They were already aware of existing dental issues. Advised that follow-up with a dentist may be desirable. DISCHARGE MEDICATIONS: Medication List ASK your doctor about these medications acetaminophen 325 MG tablet Commonly known as: Tylenol apixaban 5 MG tablet Commonly known as: Eliquis escitalopram 20 MG tablet Commonly known as: Lexapro * lamoTRIgine 100 mg tablet sustained-release 24 hour 24 hr tablet Commonly known as: LaMICtal XR Ask about: Which instructions should I use? * lamoTRIgine 200 mg tablet sustained-release 24 hour 24 hr tablet Commonly known as: LaMICtal XR Ask about: Which instructions should I use? levonorgestrel 20 MCG/DAY IUD Commonly known as: Mirena LORazepam 1 MG tablet Commonly known as: Ativan OXcarbazepine 150 MG tablet Commonly known as: Trileptal polyethylene glycol (PEG) 3350 17 g packet Commonly known as: Miralax Ultomiris 1100 MG/11ML injection Generic drug: [id number] Ask about: Which instructions should I use? Valtoco 10 MG Dose 10 MG/0.1ML liquid Generic drug: diazePAM * zonisamide 100 MG capsule Commonly known as: Zonegran * zonisamide 100 MG capsule Commonly known as: Zonegran * This list has 4 medication(s) that are the same as other medications prescribed for you. Read the directions carefully, and ask your doctor or other care provider to review them with you. DIET: Adult diet Regular ACTIVITY: Up with assist COMPLEXITY OF FOLLOW UP: [] Moderate Complexity: follow up within 7-14 calendar days (37441) [] Severe Complexity: follow up within 7 calendar days (75381) FOLLOW UP TESTING, PENDING RESULTS OR REFERRALS AT TRANSITIONAL CARE VISIT: [] Yes [] No PENDING STUDIES: - None DISPOSITION: Home FACILITY/HOME CARE AGENCY NAME: none Follow up with - Neurologist Dr. Gilmore 08/19/22 INSTRUCTIONS TO MA/SW: Please call patient on day after discharge (must document patient contacted within 2 business days of discharge). FOLLOW UP QUESTIONS FOR MA/SW: 1. Did you get medications filled and taking th (more content not included)... [facility]04-05-2023 Note* Care Coordination - Michaela Caceres RN - 08/05/2022 1:41 PM EDT SPOKE WITH PT AND MOM AT BEDSIDE THIS MORNING. PT HAVING PLASMAPHERESIS. INFORMED THEM TALKED WITH AGUSTIN FOR [employer] YESTERDAY AND WILL TOUCH BASE WITH HER TOMORROW. MOM HAD QUESTIONS ABOUT [facility] FOR OUTPT IV MEDS, ALL QUESTIONS ANSWERED. [id number]* Care Coordination - Michaela Caceres RN - 08/05/2022 1:41 PM EDT SPOKE WITH PT AND MOM AT BEDSIDE THIS MORNING. PT HAVING PLASMAPHERESIS. INFORMED THEM TALKED WITH AGUSTIN FOR [employer] YESTERDAY AND WILL TOUCH BASE WITH HER TOMORROW. [facility], ALL QUESTIONS ANSWERED. [id number] NoteMed Team Progress Note Doug Flanagan : 1990(31 y.o.) Date: August 05, 2022 Med Team: D Attending: Dr. Otto Chief Complaint: Impending myasthenic crisis Subjective: - No acute events overnight. - Patient was resting comfortably in bed during examination. She feels a great amount of improvement since admission but has not felt a dramatic change since the 3rd pheresis. Pt will receive 4th pheresis later this AM. Her strength has greatly improved and she was able to walk up and down the hallway. Her breathing has been stable but she is still complaining of a band-like sensation with inspiration that has minimally improved. Today, she complains of left chest catheter site pain after bumping the site yesterday. She rates the pain a 6/10. Pt is on day 5 of ketorolac and has had improvement in pain. Pt had 3 normal bowel movements in the last 24 hours. Denies fever, chills, nausea, vomiting, diarrhea, abdominal pain, headache, dizziness or any other current related symptoms. Patient getting 4th plasmapheresis treatment when seen this morning. She continues to note improvement in strength, able to walk the halls more and plans to do so again this afternoon/evening. Review of Systems Constitutional: Negative for appetite change, chills and fever. HENT: Negative for trouble swallowing. Eyes: Negative for pain and visual disturbance. Respiratory: Negative for apnea and cough. Cardiovascular: Negative for chest pain and leg swelling. Gastrointestinal: Negative for abdominal pain, constipation, diarrhea, nausea and vomiting. Genitourinary: Negative for difficulty urinating and dysuria. Musculoskeletal: Negative for arthralgias and back pain. Skin: Negative for rash. Pain around left catheter site Neurological: Negative for dizziness and headaches. Slight lower extremity weakness bilaterally. R>L. Psychiatric/Behavioral: Negative for agitation. Scheduled Meds:apixaban, 5 mg, Oral, BID docusate sodium, 100 mg, Oral, BID escitalopram, 10 mg, Oral, Daily heparin flush, 100 Units, IntraCATHeter, q12h lamoTRIgine, 100 mg, Oral, Daily lamoTRIgine, 250 mg, Oral, Nightly OXcarbazepine, 150 mg, Oral, Daily sennosides, 2 tablet, Oral, BID sodium chloride 0.9%, 10 mL, IntraCATHeter, q12h sodium chloride 0.9%, 5-40 mL, IntraVENous, q12h zonisamide, 200 mg, Oral, Daily zonisamide, 300 mg, Oral, Nightly Continuous Infusions:citrate dextrose, 100-200 mL/hr, Last Rate: 1,000 mL (08/01/22 1146) citrate dextrose, 100-200 mL/hr, Last Rate: 1,000 mL/hr (08/03/22 1326) PRN meds used in last 24hrs: hydroxyzine 25 mg, ketorolac 15 mg x 3, lorazepam 1 mg Objective: BP 107/69 (BP Location: Right arm, Patient Position: Sitting) Pulse 77 Temp 36.1 ?C (97 ?F) (Temporal) Resp 16 Ht 5' 2 (1.575 m) Wt 170 lb (77.1 kg) LMP 07/30/2022 SpO2 96% BMI 31.09 kg/m? Physical Exam Constitutional: Appearance: Normal appearance. HENT: Head: Normocephalic and atraumatic. Eyes: Extraocular Movements: Extraocular movements intact. Conjunctiva/sclera: Conjunctivae normal. Pupils: Pupils are equal, round, and reactive to light. Cardiovascular: Rate and Rhythm: Normal rate and regular rhythm. Heart sounds: Normal heart sounds. Pulmonary: Effort: Pulmonary effort is normal. Breath sounds: Normal breath sounds. Comments: No respiratory distress noted. Able to deeply inspire and exhale. Abdominal: General: Abdomen is flat. Bowel sounds are normal. There is no distension. Palpations: Abdomen is soft. Musculoskeletal: General: Normal range of motion. Cervical back: Normal range of motion and neck supple. Skin: General: Skin is warm and dry. Comments: Tenderness to palpation of left tunneled catheter site. No overlying erythema or edema. Mediport catheter in place in right chest. No erythema or edema. Clean. Dry. No drainage noted. Neurological: General: No focal deficit present. Mental Status: She is alert. Comments: Mild weakness with leg raise bilaterally. R>L. Sensation grossly intact. Psychiatric: Mood and Affect: Mood normal. Behavior: Behavior normal. [facility] Labs within last 24 hours Auto WBC Date Value Ref Range Status 08/05/2022 8.7 3.6 - 10.7 10*3/uL Final Hemoglobin Date Value Ref Range Status 08/05/2022 12.3 11.7 - 16.0 g/dL Final Hematocrit Date Value Ref Range Status 08/05/2022 37.8 35.0 - 47.0 % Final Platelets Date Value Ref Range Status 08/05/2022 217 140 - 440 10*3/uL Final MCV Date Value Ref Range Status 08/05/2022 86.3 80.0 - 98.0 fL Final SODIUM Date Value Ref Range Status 08/05/2022 141 135 - 145 mmol/L Final POTASSIUM Date Value Ref Range Status 08/05/2022 3.8 3.5 - 5.1 mmol/L Final CHLORIDE Date Value Ref Range Status 08/05/2022 111 (H) 98 - 107 mmol/L Final CARBON DIOXIDE Date Value Ref Range Status 08/05/2022 22 22 - 30 mmol/L Final UREA NITROGEN Date Value Ref Range Sta (more content not included)...[facility] 08-04-2022 Note* Care Coordination - Michaela Caceres RN - 08/04/2022 2:30 PM EDT SPOKE WITH PT, DOING GOOD THIS MORNING. SHE DID TALK WITH [facility] AG[facility] YESTERDAY.GAVE ME HERE #, . I DID SPEAK WITH AGUSTIN, SHE IS WORKING TO GET PT'S OUTPT IV MED APPROVED. SHE WILL TOUCH BASE WITH ME TOWARDS END OF WEEK. PLAN FOR PLASMAPHERESIS TOMORROW. DISCHARGE TO HOME WHEN MEDICALLY READY. [id number] [facility]* Care Coordination - Michaela Caceres RN - 08/04/2022 2:30 PM EDT SPOKE WITH PT, DOING GOOD THIS MORNING. SHE DID TALK WITH HER [facility] AGUSTIN YESTERDAY.GAVE ME HERE #, . I DID SPEAK WITH AGUSTIN, SHE IS WORKING TO GET PT'S OUTPT IV MED APPROVED. SHE WILL TOUCH BASE WITH ME TOWARDS END OF WEEK. PLAN FOR PLASMAPHERESIS TOMORROW. DISCHARGE TO HOME WHEN MEDICALLY READY. [id number] NoteMed Team Progress Note Doug Flanagan : 1990(31 y.o.) Date: August 04, 2022 Med Team: Sulma Attending: Dr. Don Chief Complaint: Impending myasthenic crisis Subjective: - No acute events overnight. - The patient did not feel a dramatic change after her 3rd pheresis, but overall she feels much improved from admission. She has more strength and has been able to walk up and down the hallway. - Her breathing is stable. She still experiences some resistance to deep inspiration. The sensation is different now than before -- feels like a band of resistance concentrated in upper abdomen just inferior to the sternum. - Continues to experience pain at L chest catheter site. Improves with ketorolac. - Has had 1 small BM since senna was initiated yesterday. Patient doing well today after 3rd plasmapheresis session yesterday. She has been walking the halls at the hospital and easier to sit from laying by herself. She continues to have a tight band-like sensation around her lower ribs, feels like too tight sports bra. Review of Systems Constitutional: Positive for diaphoresis. Negative for chills, fatigue and fever. Eyes: Negative for visual disturbance. Respiratory: Positive for chest tightness (resistance to deep inspiration). Negative for cough and shortness of breath. Cardiovascular: Negative for chest pain, palpitations and leg swelling. Gastrointestinal: Positive for constipation. Negative for abdominal pain, diarrhea, nausea and vomiting. Genitourinary: Negative for difficulty urinating and dysuria. Skin: Pain around left chest tunneled cath Neurological: Negative for dizziness, seizures, weakness, light-headedness and numbness. Scheduled Meds:apixaban, 5 mg, Oral, BID docusate sodium, 100 mg, Oral, BID escitalopram, 10 mg, Oral, Daily heparin flush, 100 Units, IntraCATHeter, q12h lamoTRIgine, 100 mg, Oral, Daily lamoTRIgine, 250 mg, Oral, Nightly OXcarbazepine, 150 mg, Oral, Daily sennosides, 2 tablet, Oral, BID sodium chloride 0.9%, 10 mL, IntraCATHeter, q12h sodium chloride 0.9%, 5-40 mL, IntraVENous, q12h zonisamide, 200 mg, Oral, Daily zonisamide, 300 mg, Oral, Nightly Continuous Infusions:citrate dextrose, 100-200 mL/hr, Last Rate: 1,000 mL (08/01/22 1146) citrate dextrose, 100-200 mL/hr, Last Rate: 1,000 mL/hr (08/03/22 1326) PRNs: hydroxyzine 25 mg x 1, ketorolac 15 mg x 2, lorazepam 1 mg x 1 Objective: BP 107/65 Pulse 82 Temp 36.5 ?C (97.7 ?F) Resp 16 Ht 5' 2 (1.575 m) Wt 170 lb (77.1 kg) LMP 07/30/2022 SpO2 97% BMI 31.09 kg/m? Physical Exam Constitutional: General: She is not in acute distress. Appearance: Normal appearance. She is not ill-appearing. Eyes: Extraocular Movements: Extraocular movements intact. Conjunctiva/sclera: Conjunctivae normal. Pupils: Pupils are equal, round, and reactive to light. Cardiovascular: Rate and Rhythm: Normal rate and regular rhythm. Heart sounds: Normal heart sounds. Pulmonary: Effort: Pulmonary effort is normal. No respiratory distress. Breath sounds: Normal breath sounds. Comments: No respiratory distress noted. Able to deeply inspire and exhale. Abdominal: General: Bowel sounds are normal. There is no distension. Palpations: Abdomen is soft. Tenderness: There is no abdominal tenderness. Musculoskeletal: Right lower leg: No edema. Left lower leg: No edema. Skin: General: Skin is warm and dry. Comments: Tunneled cath placed on left chest, does have TTP, no surrounding erythema or edema. Mediport placed on right chest, no surrounding erythema or edema. Neurological: Mental Status: She is alert and oriented to person, place, and time. Cranial Nerves: No cranial nerve deficit. Sensory: No sensory deficit. Comments: Mild weakness with leg raise bilaterally, L > R (improved from prior). Intact strength with handgrip. Grossly intact sensation. Psychiatric: Mood and Affect: Mood normal. Behavior: Behavior normal. Comments: Pleasant. [facility] within last 24 hours Auto WBC Date Value Ref Range Status 08/04/2022 8.2 3.6 - 10.7 10*3/uL Final Hemoglobin Date Value Ref Range Status 08/04/2022 12.1 11.7 - 16.0 g/dL Final Hematocrit Date Value Ref Range Status 08/04/2022 37.3 35.0 - 47.0 % Final Platelets Date Value Ref Range Status 08/04/2022 214 140 - 440 10*3/uL Final MCV Date Value Ref Range Status 08/04/2022 86.3 80.0 - 98.0 fL Final SODIUM Date Value Ref Range Status 08/04/2022 142 135 - 145 mmol/L Final POTASSIUM Date Value Ref Range Status 08/04/2022 3.6 3.5 - 5.1 mmol/L Final CHLORIDE Date Value Ref Range Status 08/04/2022 110 (H) 98 - 107 mmol/L Final CARBON DIOXIDE Date Value Ref Range Status 08/04/2022 23 22 - 30 mmol/L Final UREA NITROGEN Date Value Ref Range Status 08/04/2022 13 7 - 17 mg/dL Final CREATININE Date Value Ref Range Status 08/04/2022 0.69 0.52 - 1.04 mg/dL Final GLUCOSE (more content not included)...[facility]04-03-2023 Consult note* Nallely Mccall, PhD - 08/03/2022 4:52 PM EDTAssociated Order(s): IP CONSULT TO PSYCHOLOGY Department of Psychiatry Attending Consult Note Reason for Consult: health related anxiety Consulting Physician: Nallely Mccall, Ph.D Total Time Counselin minutes IDENTIFYING DATA: The patient is a 31 y.o. female admitted on 07/30/2022 with Myasthenic Crisis. History Obtained From: patient, EMR HISTORY OF PRESENT ILLNESS: Pt was alert, oriented, and participated. Pt reported frustration with her insurance denying her medication despite that she has been stable on it for 2 years; she is also having a hard time being away from her son (I was supposed to have an outpatient procedure and now I am still here). Pt described anxiety in the hospital, I guess I had a panic attack yesterday. Pt denied depressive symptoms; pt is hoping to be able to go home soon. Pt denied any SI/HI. At this time, no manic, no psychotic symptoms. Past Psychiatric History: Pt denied any previous psychiatric admissions and no previous suicide attempts. Pt is currently not in counseling. Pt is currently taking psychotropic medications: Lexapro, pt is also prescribed PRN Ativan (does not take daily). Pt reported that before this current Myasthenic crisis she was doing well; pt was diagnosed in 2018, had a hard time at that time, but feels she was coping well. Drug and Alcohol History: Pt denied any alcohol and drug use history. Social History: Pt is single and lives with her 10 year old son (he is my everything). Pt is home schooling him; he has autism. 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 Pt reported that her mom and dad are her main support (her father is watching her sonwhile she is in the hospital); pt is having a hard time being away from her son. Current Medications Scheduled Meds:apixaban, 5 mg, Oral, BID docusate sodium, 100 mg, Oral, BID escitalopram, 10 mg, Oral, Daily heparin flush, 100 Units, IntraCATHeter, q12h lamoTRIgine, 100 mg, Oral, Daily lamoTRIgine, 250 mg, Oral, Nightly OXcarbazepine, 150 mg, Oral, Daily sodium chloride 0.9%, 10 mL, IntraCATHeter, q12h sodium chloride 0.9%, 5-40 mL, IntraVENous, q12h zonisamide, 200 mg, Oral, Daily zonisamide, 300 mg, Oral, Nightly MENTAL STATUS EXAM Mental Status Exam: Appearance: hospital gown Behavior: cooperative Activity normal Speech: spontaneous, normal rate Mood: depressed, anxious , Affect: tearful at times, congruent with mood Associations: goal directed Thought content: worries re being away from son; insurance stressor Thought process: logical, organized Orientation: oriented in all spheres Attention good Concentration good Insight: good Judgment: good Suicidal Intentions: no Suicidal Plan: no Impression : Adjustment Reaction with anxiety/ depressive symptoms Hx Anxiety Severity of stressors is moderate Source of stressors: health issues, being away from son PLAN: Session focused on decreasing depressive and anxiety symptoms, and supportive intervention. No SI/HI, pt is very future oriented. Discussed with the pt various treatment options including assessment for medications and outpatient follow up. Pt declined further assessment for medications. ER services reviewed. Safety planning was discussed in detail. Pt to call 911 or go directly to nearest ER for any suicidal or homicidal thoughts. Again, No SI/HI. Pt voiced clear understanding of all treatment plans. Thank you for consulting our services. Risk Management: no special precautions [id number] Consult note* Nallely Mccall, PhD - 08/03/2022 4:52 PM EDTAssociated Order(s): IP CONSULT TO PSYCHOLOGY Department of Psychiatry Attending Consult Note Reason for Consult: health related anxiety Consulting Physician: Nallely Mccall, Ph.D Total Time Counselin minutes IDENTIFYING DATA: The patient is a 31 y.o. female admitted on 07/30/2022 with Myasthenic Crisis. History Obtained From: patient, EMR HISTORY OF PRESENT ILLNESS: Pt was alert, oriented, and participated. Pt reported frustration with her insurance denying her medication despite that she has been stable on it for 2 years; she is also having a hard time being away from her son (I was supposed to have an outpatient procedure and now I am still here). Pt described anxiety in the hospital, I guess I had a panic attack yesterday. Pt denied depressive symptoms; pt is hoping to be able to go home soon. Pt denied any SI/HI. At this time, no manic, no psychotic symptoms. Past Psychiatric History: Pt denied any previous psychiatric admissions and no previous suicide attempts. Pt is currently not in counseling. Pt is currently taking psychotropic medications: Lexapro, pt is also prescribed PRN Ativan (does not take daily). Pt reported that before this current Myasthenic crisis she was doing well; pt was diagnosed in 2018, had a hard time at that time, but feels she was coping well. Drug and Alcohol History: Pt denied any alcohol and drug use history. Social History: Pt is single and lives with her 10 year old son (he is my everything). Pt is home schooling him; he has autism. 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 Pt reported that her mom and dad are her main support (her father is watching her sonwhile she is in the hospital); pt is having a hard time being away from her son. Current Medications Scheduled Meds:apixaban, 5 mg, Oral, BID docusate sodium, 100 mg, Oral, BID escitalopram, 10 mg, Oral, Daily heparin flush, 100 Units, IntraCATHeter, q12h lamoTRIgine, 100 mg, Oral, Daily lamoTRIgine, 250 mg, Oral, Nightly OXcarbazepine, 150 mg, Oral, Daily sodium chloride 0.9%, 10 mL, IntraCATHeter, q12h sodium chloride 0.9%, 5-40 mL, IntraVENous, q12h zonisamide, 200 mg, Oral, Daily zonisamide, 300 mg, Oral, Nightly MENTAL STATUS EXAM Mental Status Exam: Appearance: hospital gown Behavior: cooperative Activity normal Speech: spontaneous, normal rate Mood: depressed, anxious , Affect: tearful at times, congruent with mood Associations: goal directed Thought content: worries re being away from son; insurance stressor Thought process: logical, organized Orientation: oriented in all spheres Attention good Concentration good Insight: good Judgment: good Suicidal Intentions: no Suicidal Plan: no Impression : Adjustment Reaction with anxiety/ depressive symptoms Hx Anxiety Severity of stressors is moderate Source of stressors: health issues, being away from son PLAN: Session focused on decreasing depressive and anxiety symptoms, and supportive intervention. No SI/HI, pt is very future oriented. Discussed with the pt various treatment options including assessment for medications and outpatient follow up. Pt declined further assessment for medications. ER services reviewed. Safety planning was discussed in detail. Pt to call 911 or go directly to nearest ER for any suicidal or homicidal thoughts. Again, No SI/HI. Pt voiced clear understanding of all treatment plans. Thank you for consulting our services. Risk Management: no special precautions * Renny Cantor MD - 07/31/2022 2:29 PM EDT Renal Consult 31 yo WF Myasthenia gravis Requires pheresis and we were trying to get done as outpatient but too anxious to do so so admitted Had first pheresis yesterday PMH: as above, epilepsy, anxiety ALL/MEDS: reviewed FMH: NC ROS: weakness, anxiety, BOURNE PE: 112/59 101 17 36.3 NAD RRR Lungs clear Abd NT LIJTDC No edema Weakness Labs reviewed A/P: Myasthenia gravis exacerbation- five pheresis, 1 plasma volume, albumin replacement, do treatments every other day Hypokalemia- replace * Josemanuel Le MD - 07/31/2022 9:33 AM EDTAssociated Order(s): IP CONSULT TO NEUROLOGY Neurology Consult Note - Neurology Service Patient Name: Doug Flanagan Patient : 1990 Acct: [id number] Date of Admission: 07/30/2022 Room/Bed: PCP: DONNA PERDOMO MD 07/31/2022 Reason for Consult: History of Presenting Illness: The patient is 31 y.o. female who is being seen as a new consult formyasthenic crisis. PMHx is significant for myasthenia gravis, generalized epilepsy, and depression/anxiety. Symptom: Left frontal headaches (2/week), blurry vision, double vision, generalized weakness of allextremities, trouble breathing, stabbing abdominal pain, feeling of band around chest, nausea andvomiting. Manner of onset: Gradual over 3 weeks Description of event(s): Patient has a history of myasthenia gravis treated with ultomiris infusions every 8 weeks since 01/2022 (previously on solaris) and it was very well controlled with minimalsymptoms. She was due for her infusion 11 days ago, but it was denied by insurance causing a worsening of all the above symptoms. She states she normally starts feeling these symptoms mildy in the wee k leading up to her infusion but they are relieved shortly after ultomiris infusion, without it they have now been worsening to the point where she cannot perform activities of daily living without assistance due to her profound weakness. Duration: 2-3 weeks Current state: Distressed from symptoms not being relieved. Severity: Moderate Modifying factors: None Associated symptoms: Listed above. Review of systems: General: No reported chills, no fever, no obesity. HEENT: Positive for headache, no head injury. No reported eye pain or eye congestion. No reported ear pain or ear congestion. No reported nasal congestion or nosebleed. No reported throat congestion or infection. Neck: No reported neck pain. No reported neck stiffness. Respiratory: Positive for shortness of breath. No reported wheezing. Cardiac: No reported chest pain and no reported palpitations. Gastrointestinal: No reported nausea, vomiting, abdominal pain and, no reported diarrhea. Musculoskeletal: Positive for abdominal and lower chest band-like tightness. No reported arthralgia and, no reported low back pain. Endocrine: No reported thyroid disease. No reported type 1 or type 2 diabetes mellitus. Psychiatry: Positive anxiety and depression. Neurological: Positive weakness in extremities. Positive Slurred speech. Positive for seizure a fewdays ago. Positive for visual changes (blurry and double vision). Positive for weakness causing gait or ambulatory decline. No reported tongue bite or loss of bowel/bladder control. No reported stroke. No reported vertigo. No reported hearing loss. No reported alteration in mental state. Past medical History, surgical history, family history and social history were reviewed with the patient/care provider and were reviewed in the chart. Only the available information is documented below. Thank you. Past Medical History: Past Medical History: Diagnosis Date E. coli colitis 2010 Epilepsy (HCC) Myasthenia gravis (HCC) Past Surgical History: Past Surgical History: Procedure Laterality Date APPENDECTOMY 2006 HIP ARTHROSCOPY (HISTORICAL) Right 2012 OTHER SURGICAL HISTORY Right 07/22/2018 THORACIS RESECTION, THYMIC TISSUE, ANT MEDIASTINAL THYMECTOMY Family History: Family History Problem Relation Name Age of Onset Cancer Maternal Grandmother Heart disease Maternal Grandfather Multiple sclerosis Sister Social History: TOBACCO: reports that she has never smoked. She has never used smokeless tobacco. ETOH: reports no history of alcohol use. RECREATIONAL DRUG USE: Social History Substance and Sexual Activity Drug Use No The patient's medications and allergies were reviewed and the available information is documented below. Thank you. Allergies: Dilantin [phenytoin], Keppra [levetiracetam], Pcn [penicillins], Shellfish-derived products, and Other Home Medications: Prior to Admission medications Medication Sig Start Date End Date Taking? Authorizing Provider acetaminophen (Tylenol) 325 MG tablet Take 650 mg by mouth every 6 hours as needed. Historical Provider, apixaban (Eliquis) 5 MG tablet Take 5 mg by mouth in the morning and 5 mg in the evening. Historical Provider, diazePAM (Valium) 10 MG tablet Take 10 mg by mouth every 8 hours as needed (this is a nasal spray not tablet, Valtoco). Historical Provider, diazePAM (Valtoco 10 MG Dose) 10 MG/0.1ML liquid as directed. 02/18/21 Historical Provider, escitalopram (Lexapro) 10 MG tablet Take 10 mg by mouth daily. Historical Provider, lamoTRIgine (LaMICtal) 100 MG tablet Take 100 mg by mouth. Historical Provider, lamoTRIgine (LaMICtal) 200 MG tablet Take 250 mg by mouth. Historical Provider, levonorgestrel (Mirena) 20 MCG/DAY IUD 1 each by IntraUTERine route. Historical Provider, LORazepam (Ativan) 1 MG tablet Take by mouth. Historical Provider, OXcarbazepine (Trileptal) 150 MG tablet Take 150 mg by mouth. Historical Provider, ravulizumab-cwvz (Ultomiris) 1100 MG/11ML injection Infuse 1,100 mL into a venous catheter every 8 (eight) weeks. 02/05/22 Historical Provider, ravulizumab-cwvz (Ultomiris) 300 MG/3ML injection as directed Intravenous Historical Provider, zonisamide (Zonegran) 100 MG capsule Take 300 mg by mouth daily. Historical Provider, zonisamide (Zonegran) 100 MG capsule Take 200 mg by mouth daily. Historical Provider, Current Hospital Medications: Current Facility-Administered Medications: acetaminophen (Tylenol) tablet 650 mg, 650 mg, Oral, q6h PRN, 650 mg at 07/31/22 0156 OR acetaminophen (Tylenol) suppository 650 mg, 650 mg, Rectal, q6h PRN, Antwon Nascimento DO apixaban (Eliquis) tablet 5 mg, 5 mg, Oral, BID, Antwon Nascimento DO, 5 mg at 07/31/22 08 escitalopram (Lexapro) tablet 10 mg, 10 mg, Oral, Daily, Antwon Nascimento DO, 10 mg at 07/30/222050 heparin flush injection 100 Units, 100 Units, IntraCATHeter, q12h, Juliana Tavares MD heparin flush injection 100 Units, 100 Units, IntraCATHeter, PRN, Juliana Tavares MD heparin injection 2,100 Units, 2,100 Units, IntraCATHeter, PRN, Renny Cantor MD heparin injection 2,200 Units, 2,200 Units, IntraCATHeter, PRN, Renny Cantor MD ketorolac (Toradol) injection 15 mg, 15 mg, IntraVENous, q6h PRN, Juliana Tavares MD, 15 mg at 07/31/22 08 lactated Ringer's infusion, 100 mL/hr, IntraVENous, Continuous, Juliana Tavares MD, Last Rate: 100 mL/hr at 07/31/22 0841, 100 mL/hr at 07/31/22840 lamoTRIgine (LaMICtal) tablet 100 mg, 100 mg, Oral, Daily, Antwon Nascimento DO, 100 mg at 07/31/22843 lamoTRIgine (LaMICtal) tablet 250 mg, 250 mg, Oral, Nightly, Antwon Nascimento DO, 250 mg at 07/30/222049 LORazepam (Ativan) tablet 1 mg, 1 mg, Oral, q12h PRN, Antwon Nascimento DO ondansetron ODT (Zofran-ODT) disintegrating tablet 4 mg, 4 mg, Oral, q8h PRN, 4 mg at 07/30/22 1631OR ondansetron (Zofran) injection 4 mg, 4 mg, IntraVENous, q6h PRN, Regina Walls MD ondansetron ODT (Zofran-ODT) disintegrating tablet 4 mg, 4 mg, Oral, q8h PRN OR ondansetron (Zofran) injection 4 mg, 4 mg, IntraVENous, q6h PRN, Antwon Anglerhondau, DO, 4 mg at 07/30/22 1916 OXcarbazepine (Trileptal) tablet 150 mg, 150 mg, Oral, Daily, Antown Angleuru, DO, 150 mg at polyethylene glycol (PEG) 3350 (Miralax) packet 17 g, 17 g, Oral, Daily PRN, Antwon Koduru, DO potassium chloride CR (Klor-Con M10) ER tablet 40 mEq, 40 mEq, Oral, BID, Juliana Tavares MD, 40 mEqat 07/31/22 0842 sodium chloride 0.9 % infusion, 5-250 mL/hr, IntraVENous, PRN, Antwon Barboururu, DO sodium chloride 0.9% (NS) flush 10 mL, 10 mL, IntraCATHeter, q12h, Juliana Tavares MD, 10 mL at 07/31/22 0810 sodium chloride 0.9% (NS) flush 10 mL, 10 mL, IntraCATHeter, PRN, Juliana Tavares MD sodium chloride 0.9% (NS) flush 5-40 mL, 5-40 mL, IntraVENous, q12h, Antwon Orellanau, DO, 10 mL at 07/31/22 0610 sodium chloride 0.9% (NS) flush 5-40 mL, 5-40 mL, IntraVENous, PRN, Antwon Koduru, DO zonisamide (Zonegran) capsule 200 mg, 200 mg, Oral, Daily, Antwon Orellanau, DO, 200 mg at 07/31/22 0848 zonisamide (Zonegran) capsule 300 mg, 300 mg, Oral, Nightly, Antwon Orellanau, DO Current Outpatient Medications: acetaminophen (Tylenol) 325 MG tablet, Take 650 mg by mouth every 6 hours as needed., Disp: , Rfl: apixaban (Eliquis) 5 MG tablet, Take 5 mg by mouth in the morning and 5 mg in the evening., Disp: ,Rfl: diazePAM (Valium) 10 MG tablet, Take 10 mg by mouth every 8 hours as needed (this is a nasal spray not tablet, Valtoco)., Disp: , Rfl: diazePAM (Valtoco 10 MG Dose) 10 MG/0.1ML liquid, as directed., Disp: , Rfl: escitalopram (Lexapro) 10 MG tablet, Take 10 mg by mouth daily., Disp: , Rfl: lamoTRIgine (LaMICtal) 100 MG tablet, Take 100 mg by mouth., Disp: , Rfl: lamoTRIgine (LaMICtal) 200 MG tablet, Take 250 mg by mouth., Disp: , Rfl: levonorgestrel (Mirena) 20 MCG/DAY IUD, 1 each by IntraUTERine route., Disp: , Rfl: LORazepam (Ativan) 1 MG tablet, Take by mouth., Disp: , Rfl: OXcarbazepine (Trileptal) 150 MG tablet, Take 150 mg by mouth., Disp: , Rfl: ravulizumab-cwvz (Ultomiris) 1100 MG/11ML injection, Infuse 1,100 mL into a venous catheter every 8(eight) weeks., Disp: , Rfl: ravulizumab-cwvz (Ultomiris) 300 MG/3ML injection, as directed Intravenous, Disp: , Rfl: zonisamide (Zonegran) 100 MG capsule, Take 300 mg by mouth daily., Disp: , Rfl: zonisamide (Zonegran) 100 MG capsule, Take 200 mg by mouth daily., Disp: , Rfl: Continuous Infusions: lactated Ringer's, 100 mL/hr, Last Rate: 100 mL/hr (07/31/22 0841) Vital Signs: Patient Vitals for the past 24 hrs: BP Temp Temp src Pulse Resp SpO2 Height Weight 07/31/22 0717 104/77 -- -- 98 18 98 % -- -- 07/31/22 0539 100/64 -- -- 88 18 98 % -- -- 07/31/22 0412 108/73 -- -- 85 18 95 % -- -- 07/31/22 0237 98/61 -- -- 82 15 95 % -- -- 07/31/22 0132 98/62 -- -- 86 15 99 % -- -- 07/31/22 0046 103/61 -- -- 87 15 94 % -- -- 07/30/22 2350 101/70 -- -- 90 15 95 % -- -- 07/30/227 100/64 -- -- 94 15 97 % -- -- 07/30/222157 103/70 -- -- 83 14 95 % -- -- 07/30/222056 108/68 -- -- 88 15 98 % -- -- 07/30/221958 108/74 -- -- 93 16 98 % -- -- 07/30/22 1858 105/68 -- -- 99 16 97 % -- -- 07/30/22 1632 95/56 -- -- 90 15 97 % -- -- 07/30/22 1522 100/68 -- -- 88 16 97 % -- -- 07/30/22 1248 114/80 36.8 C (98.3 F) Oral (!) 112 18 96 % 1.575 m (5' 2) 77.1 kg (170 lb) Physical Examination: General Exam: Constitutional: The patient is not obese. Cardiovascular: S1 and S2, regular rate and rhythm no overt murmurs. No carotid bruit and normal carotid pulse. Extremities: No cyanosis, no clubbing, and no edema. Ophthalmology/funduscopic exam: Unremarkable/normal. Neurological Exam: Dexterity: The patient is RIGHT handed. Mental Status: Alert, Awake, Oriented x 4, Normal Speech and intact comprehension - 3/3 repetition and recall. Follows 1-3 step commands. Fund of knowledge: Normal Attention/concentration: Normal Cranial Nerves: CN-II, CN-III, CN-IV, CN-V, CN-, CN-VII, CN-VIII, CN-IX, CN-X, CN-XI and, CN-XII are within normal limits bilaterally. Motor: Bulk = Symmetric and within normal limits bilaterally. Tone = Symmetric and within normal limits bilaterally. Strength = 4+/5 in all 4 extremities. DTRs = 3+ throughout. Clonus 2-3 beats bilaterally. Plantars = Down-going bilaterally. Abnormal movements = None. Opposition = decreased in both upper extremities. Pronator Drift = No pronator drift on the RIGHT and, no pronator drift on the LEFT side. Sensory: Light touch, pinprick and vibration exams are within normal limits. Coordination: Finger to nose is normal on the right side and, on the left side. Heel to peters is normal on the right side and, on the left side. Rapid alternation movements are slowed on the right side and on the left side. Gait: Deferred due to patient's inability to participate at this time. Romberg: Deferred due to patient's inability to participate at this time. NIHSS score: N/A. Results: Labs: Last 24hrs Recent Results (from the past 24 hour(s)) Basic metabolic panel Collection Time: 07/30/22 1:12 PM Result Value Ref Range SODIUM 139 135 - 145 mmol/L POTASSIUM 3.5 3.5 - 5.1 mmol/L CHLORIDE 108 (H) 98 - 107 mmol/L CARBON DIOXIDE 21 (L) 22 - 30 mmol/L UREA NITROGEN 10 7 - 17 mg/dL CREATININE 0.62 0.52 - 1.04 mg/dL GLUCOSE 94 70 - 100 mg/dL CALCIUM 9.2 8.4 - 10.4 mg/dL ANION GAP 10 3 - 13 mmol/L eGFR >90.0 >60.0 mL/min/1.73m*2 CBC auto differential Collection Time: 07/30/22 1:12 PM Result Value Ref Range Auto WBC 10.8 (H) 3.6 - 10.7 10*3/uL RBC 4.92 3.8 - 5.20 10*6/uL Hemoglobin 13.6 11.7 - 16.0 g/dL Hematocrit 42.1 35.0 - 47.0 % MCV 85.6 80.0 - 98.0 fL MCH 27.7 26.0 - 34.0 pg MCHC 32.4 32.0 - 36.0 % RDW 14.2 11.5 - 14.5 % Platelets 243 140 - 440 10*3/uL MPV 7.1 (L) 7.4 - 12.4 fL nRBC 0.0 0.0 - 2.0 /100 WBCs Neutrophils Relative 76.1 40.0 - 80.0 % Lymphocytes Relative 15.5 (L) 20.0 - 40.0 % Monocytes Relative 6.7 2.0 - 10.0 % Eosinophils Relative 1.2 1.0 - 6.0 % Basophils Relative 0.5 0.0 - 2.0 % Neutrophils Absolute 8.3 (H) 1.8 - 7.0 10*3/uL Lymphocytes Absolute 1.7 1.0 - 4.3 10*3/uL Monocytes Absolute 0.7 0.0 - 0.8 10*3/uL Eosinophils Absolute 0.1 0.0 - 0.5 10*3/uL Basophils Absolute 0.1 0.0 - 0.2 10*3/uL Magnesium Collection Time: 07/30/22 1:12 PM Result Value Ref Range MAGNESIUM 1.9 1.6 - 2.3 mg/dL Quantitative hCG Collection Time: 07/30/22 1:12 PM Result Value Ref Range HCG QUANTITATIVE <2 Females < 5 mIU/mL ECG 12 lead Collection Time: 07/30/22 1:45 PM Result Value Ref Range Heart Rate 105 bpm QRSD Interval 95 ms QT Interval 348 ms QTC Interval 462 ms P Belden 38 degrees QRS Belden 8 degrees T Wave Belden 3 degrees NV Interval 185 ms Hepatitis B surface antibody Collection Time: 07/30/22 6:30 PM Result Value Ref Range HEPATITIS B VIRUS SURFACE AB 314.1 mIU/mL Hepatitis B surface antigen Collection Time: 07/30/22 6:30 PM Result Value Ref Range HEPATITIS B VIRUS SURFACE AG Not Detected Not Detected CBC auto differential Collection Time: 07/31/22 6:41 AM Result Value Ref Range Auto WBC 10.0 3.6 - 10.7 10*3/uL RBC 4.60 3.8 - 5.20 10*6/uL Hemoglobin 13.0 11.7 - 16.0 g/dL Hematocrit 38.9 35.0 - 47.0 % MCV 84.5 80.0 - 98.0 fL MCH 28.2 26.0 - 34.0 pg MCHC 33.4 32.0 - 36.0 % RDW 13.9 11.5 - 14.5 % Platelets 202 140 - 440 10*3/uL MPV 7.6 7.4 - 12.4 fL nRBC 0.0 0.0 - 2.0 /100 WBCs Neutrophils Relative 77.3 40.0 - 80.0 % Lymphocytes Relative 13.9 (L) 20.0 - 40.0 % Monocytes Relative 7.4 2.0 - 10.0 % Eosinophils Relative 1.0 1.0 - 6.0 % Basophils Relative 0.4 0.0 - 2.0 % Neutrophils Absolute 7.8 (H) 1.8 - 7.0 10*3/uL Lymphocytes Absolute 1.4 1.0 - 4.3 10*3/uL Monocytes Absolute 0.7 0.0 - 0.8 10*3/uL Eosinophils Absolute 0.1 0.0 - 0.5 10*3/uL Basophils Absolute 0.0 0.0 - 0.2 10*3/uL Comprehensive metabolic panel Collection Time: 07/31/22 6:41 AM Result Value Ref Range SODIUM 139 135 - 145 mmol/L POTASSIUM 3.3 (L) 3.5 - 5.1 mmol/L CHLORIDE 109 (H) 98 - 107 mmol/L CARBON DIOXIDE 22 22 - 30 mmol/L ANION GAP 8 3 - 13 mmol/L UREA NITROGEN 8 7 - 17 mg/dL CREATININE 0.67 0.52 - 1.04 mg/dL GLUCOSE 94 70 - 100 mg/dL CALCIUM 8.6 8.4 - 10.4 mg/dL AST (SGOT) 17 15 - 46 U/L ALT 8 0 - 34 U/L ALKALINE PHOSPHATASE 43 38 - 126 U/L ALBUMIN 4.1 3.5 - 5.0 g/dL BILIRUBIN, TOTAL 0.7 0.2 - 1.3 mg/dL TOTAL PROTEIN 5.9 (L) 6.3 - 8.2 g/dL eGFR >90.0 >60.0 mL/min/1.73m*2 Magnesium Collection Time: 07/31/22 6:41 AM Result Value Ref Range MAGNESIUM 1.7 1.6 - 2.3 mg/dL Since admission: No results for input(s): CKTOTAL, TROPONINI in the last 72 hours. Recent Labs 07/31/22 0641 ALKPHOS 43 ALT 8 AST 17 BILITOT 0.7 @[facility]) ABGs:)No results for input(s): PH, PO2, PCO2, HCO3, O2SAT in the last 72 hours. No lab exists for component: BE Cultures: Blood culture #1: No lab exists for component: BC Blood culture #2: No lab exists for component: BLOODCULT2 Antiepileptic levels: No results for input(s): PHENYTOIN, PHENOBARB, VALPROATE in the last 72 hours. No lab exists for component: CARBTOT, LAMOTRIG, KEPPRA Coagulation: No results for input(s): INR in the last 72 hours. CSF: No results for input(s): CULTURE, PROTEIN in the last 72 hours. No lab exists for component: CHARCSF, CELL COUNT, GRAM STAIN Stroke Specific Labs: Lipids: No results for input(s): CHOL, TRIG, HDL, AMYLASE, LIPASE in the last 72 hours. No lab exists for component: LDLCHOLESTEROL HgA1c: No lab exists for component: LABA1C TSH: No results found for: TSH Radiology Personal review: Neurophysiology Results: EEG: N/A EMG/NCS: N/A. ASSESSMENT / PLAN / RECOMMENDATIONS : Assessment: Myasthenic crisis being managed with plasmapheresis. Possible transverse myelitis vs. multiple sclerosis vs. Other autoimmune due to diffuse UMN signs and hug sign. Recommendations: MRI Brain, cervical spine, and thoracic spine. Continue plasmapheresis every other day x5 treatments. Agree with checking levels on seizure medications. Disposition/Discharge issues: None Thank you. Patient seen and discussed with Dr. Painter Patient independently examined and evaluated by resident physician. Agree with above history, physical examination, assessment, and plan with changes/additions made through out. Associated attestation - Lupe Painter MD - 08/01/2022 9:36 AM EDT Attestation Note: I have personally performed a face to face diagnostic evaluation on this patient. Labs, maging studies and electronic medical record have been reviewed by me. This note documented by the resident physician reflects my history, exam and medical decision making as discussed with the resident physician. I have reviewed and agree with the care plan. Changes were made in the orders as necessary My history, exam, assessment and plan are as follows. Comments by the neurology attending: The patient has a longstanding history of myasthenia gravis which was well controlled on Ultomiris treatment. Apparently, for reasons unclear to me, the patient's insurance declined the approval of patient's medically necessary treatment with Ultomiris that, more likely than not, resulted in patient's current episode of shortness of breath, generalized body weakness and, some visual difficulties. The patient has been experiencing difficulty in ambulation due to her severe generalized weakness. The patient is otherwise alert and oriented x4 with normal speech and, she can follow 1-3 step commands. The patient has brisk deep tendon reflexes throughout with bilateral ankle clonus. For detailed H&P, please review with the physician's note. Clinical impression: Myasthenia gravis exacerbation, probably due to inability to take the Ultomiris which was reportedly, denied by patient's insurance. Recommendations: Restart Ultomiris treatment NORMA. Recommend that this essential treatment for patient's documented control of myasthenia gravis be reinstated by the insurance company, as soon as possible. Outpatient neurology follow-up, 3 to 4 weeks post discharge. Physical and Occupational Therapy as well as respiratory therapy consults. Supportive care and, please implement fall precautions. Due to hyperreflexia not explained by patient's myasthenia gravis symptoms, MRI of the brain, cervical and thoracic spines have been ordered and, remains pending. Disposition: Neurology service will make further recommendations after reviewing the patient's MRI studies that are pending. Further recommendations, per primary team. Attestation: I spent about 80 minutes in providing care to this patient including performing the H&P, reviewing labs, reviewing imaging studies, ordering tests, counseling patient and, discussing issues pertaining to acute exacerbation and its treatment including the necessity and side effects of the plasmaphoresis. The patient and her mother, present at the bedside, had numerous questions and concerns that were addressed to their expressed understanding and satisfaction. 51% of the total time was spent in providing counseling and coordinating care for this patient. documented in this [facility]04-03-2023 Note* Care Coordination - Michaela Caceres RN - 08/03/2022 12:45 PM EDT Care Managment Initial Assessment Date: 08/03/2022 Patient Name: Doug Flanagan : 1990 Patient Information Source of Information: Patient Cognition/Language: WFL - Within Functional Limits Permission given to speak with patient public service representative/caregiver as indicated: Yes Confirmation of Payer with patient/family: Yes Payer Name: [employer] : No Confirmation of Primary Care Physician: Confirmed PCP Name: DR PERDOMO Primary Caregiver: Self If assistance needed, confirmed caregiver ready, willing and able to care for patient at discharge: Confirmed with: Living Arrangements Current Residence: Private Residence Number of Floors Number of Entry Steps: Bed/Bath Levels: Facility: Facility Name: Plan to Return: Lives with: (10 YO SON) Support Systems: Parent Activities of Daily Living Ambulation: Independent Bathing/Dressing: Independent Elimination/Continence/Toileting: Independent Feeding: Independent Who Assists with Activities of Daily Living: Instrumental Activities of Daily Living Prescription Coverage: Yes Pharmacy Used: Medication Management: Independent Transportation/Shopping: Transportation Mode: Needs Assistance with Transportation at Discharge: Meal Preparation: Independent Laundry/Cleaning: Independent Finances/Bill Paying: Independent Communication: Independent Types of Care Services/Equipment Utilized Care Services: (NA) Dialysis Type: NA Durable Medical Equipment: (NA) Patient's Goal/Discharge Plan Patient expects to be discharged to: HOME Discharge Planning Actions: Continue to follow Patient's Choice Rights and [employer] and Collaborative Relationships Disclosed as Indicated for Post-Acute Care: Interdisciplinary Team Engagement: Social Work Referral for: Additional Information: SPOKE WITH PT AND MOTHER AT BEDSIDE, INTRODUCED SELF AND EXPLAINED ROLE. PT HERE WITH MYASTHENIC CRISIS. NEPHRO FOLLOWING. NEURO HAS SIGNED OFF. WILL HAVE PLASMAPHERESIS TODAY. PYSCH CONSULT PENDING.PER PT, HER INSURANCE DID NOT APPROVE HER IV MEDICATION. EXPECTING CALL FROM HER [employer]. I ALSO TRIED TO CALL DR GILMORE'S OFFICE TO CHECK ON STATUS OF MEDICATION, OFFICE IS CLOSED TODAY. WILL TRY TOMORROW. ANTICIPATE DISCHARGE TO HOME WHEN COMPLETED PLASMAPHERESIS TREATMENTS. [phone] Note* Care Coordination - Michaela Caceres RN - 08/03/2022 12:45 PM EDT Care Managment Initial Assessment Date: 08/03/2022 Patient Name: Doug Flanagan : 1990 Patient Information Source of Information: Patient Cognition/Language: WFL - Within Functional Limits Permission given to speak with patient public service representative/caregiver as indicated: Yes Confirmation of Payer with patient/family: Yes Payer Name: [employer] : No Confirmation of Primary Care Physician: Confirmed PCP Name: DR PERODMO Primary Caregiver: Self If assistance needed, confirmed caregiver ready, willing and able to care for patient at discharge: Confirmed with: Living Arrangements Current Residence: Private Residence Number of Floors Number of Entry Steps: Bed/Bath Levels: Facility: Facility Name: Plan to Return: Lives with: (10 YO SON) Support Systems: Parent Activities of Daily Living Ambulation: Independent Bathing/Dressing: Independent Elimination/Continence/Toileting: Independent Feeding: Independent Who Assists with Activities of Daily Living: Instrumental Activities of Daily Living Prescription Coverage: Yes Pharmacy Used: Medication Management: Independent Transportation/Shopping: Transportation Mode: Needs Assistance with Transportation at Discharge: Meal Preparation: Independent Laundry/Cleaning: Independent Finances/Bill Paying: Independent Communication: Independent Types of Care Services/Equipment Utilized Care Services: (NA) Dialysis Type: NA Durable Medical Equipment: (NA) Patient's Goal/Discharge Plan Patient expects to be discharged to: HOME Discharge Planning Actions: Continue to follow Patient's Choice Rights and [employer] and Collaborative Relationships Disclosed as Indicated for Post-Acute Care: Interdisciplinary Team Engagement: Social Work Referral for: Additional Information: SPOKE WITH PT AND MOTHER AT BEDSIDE, INTRODUCED SELF AND EXPLAINED ROLE. PT HERE WITH MYASTHENIC CRISIS. NEPHRO FOLLOWING. NEURO HAS SIGNED OFF. WILL HAVE PLASMAPHERESIS TODAY. PYSCH CONSULT PENDING.PER PT, HER INSURANCE DID NOT APPROVE HER IV MEDICATION. EXPECTING CALL FROM HER [employer]. I ALSO TRIED TO CALL DR GILMORE'S OFFICE TO CHECK ON STATUS OF MEDICATION, OFFICE IS CLOSED TODAY. WILL TRY TOMORROW. ANTICIPATE DISCHARGE TO HOME WHEN COMPLETED PLASMAPHERESIS TREATMENTS. Michaela [facility]aceres RN [id number] NoteMed Team Progress Note Doug E Masha : 1990(31 y.o.) Date: August 03, 2022 Med Team: [place] Attending: Dr. Don Chief Complaint: Impending myasthenic crisis Subjective: - No acute events overnight. She had an episode of severe anxiety late afternoon yesterday. This has since resolved. Hydroxyzine was ordered as a 2nd line PRN for anxiety in addition to her home lorazepam. She received both hydroxyzine 25 mg PO x 1 and lorazepam 1 mg PO x 1 yesterday. - This morning, the patient feels much better. She slept soundly. She has no headache or lightheadedness today and is in good spirits. She is scheduled for her 3rd of 5 plasmapheresis treatments today. - Her breathing is unchanged from yesterday but improved from admission. She experiences some resistance to deep inspiration. - Continues to experience pain at L chest catheter site. Improves with ketorolac. - Has not had BM in 2 days. Request senna 2 tablets BID in addition to docusate already ordered. Would prefer to hold off on PEG for now. Patient seen at bedside with her mother present in the room. She reports feeling better in terms of respiratory status after second plasmapheresis treatment with 3rd treatment planned for today. She feels pain at chest catheter site is improved. She notes some anxiety about the pending removal of the port when plasmapheresis sessions are all completed. Review of Systems Constitutional: Positive for chills and diaphoresis. Negative for fatigue and fever. Eyes: Negative for visual disturbance. Respiratory: Positive for chest tightness (resistance to deep inspiration). Negative for cough and shortness of breath. Cardiovascular: Negative for chest pain, palpitations and leg swelling. Gastrointestinal: Positive for constipation. Negative for abdominal pain, diarrhea, nausea and vomiting. Genitourinary: Negative for difficulty urinating and dysuria. Skin: Pain around left chest tunneled cath Neurological: Negative for dizziness, seizures, weakness, light-headedness and numbness. Scheduled Meds:apixaban, 5 mg, Oral, BID docusate sodium, 100 mg, Oral, BID escitalopram, 10 mg, Oral, Daily heparin flush, 100 Units, IntraCATHeter, q12h lamoTRIgine, 100 mg, Oral, Daily lamoTRIgine, 250 mg, Oral, Nightly OXcarbazepine, 150 mg, Oral, Daily sodium chloride 0.9%, 10 mL, IntraCATHeter, q12h sodium chloride 0.9%, 5-40 mL, IntraVENous, q12h zonisamide, 200 mg, Oral, Daily zonisamide, 300 mg, Oral, Nightly Continuous Infusions:citrate dextrose, 100-200 mL/hr, Last Rate: 1,000 mL (08/01/22 1146) PRNs: hydroxyzine 25 mg x 1, ketorolac 15 mg x 3, lorazepam 1 mg x 1 Objective: BP 103/77 (BP Location: Right arm, Patient Position: Lying) Pulse 77 Temp 36.7 ?C (98 ?F) (Temporal) Resp 16 Ht 5' 2 (1.575 m) Wt 170 lb (77.1 kg) LMP 07/30/2022 SpO2 96% BMI 31.09 kg/m? Physical Exam Constitutional: General: She is not in acute distress. Appearance: Normal appearance. She is not ill-appearing. Eyes: Extraocular Movements: Extraocular movements intact. Conjunctiva/sclera: Conjunctivae normal. Pupils: Pupils are equal, round, and reactive to light. Cardiovascular: Rate and Rhythm: Normal rate and regular rhythm. Heart sounds: Normal heart sounds. Pulmonary: Effort: Pulmonary effort is normal. No respiratory distress. Breath sounds: Normal breath sounds. Comments: No respiratory distress noted. Able to deeply inspire and exhale. Abdominal: General: Bowel sounds are normal. There is no distension. Palpations: Abdomen is soft. Tenderness: There is no abdominal tenderness. Musculoskeletal: Right lower leg: No edema. Left lower leg: No edema. Skin: General: Skin is warm and dry. Comments: Tunneled cath placed on left chest, does have TTP, no surrounding erythema or edema. Mediport placed on right chest, no surrounding erythema or edema. Neurological: Mental Status: She is alert and oriented to person, place, and time. Cranial Nerves: No cranial nerve deficit. Sensory: No sensory deficit. Comments: Mild weakness with leg raise bilaterally, L > R (improved from prior). Intact strength with handgrip. Grossly intact sensation. Psychiatric: Mood and Affect: Mood normal. Behavior: Behavior normal. [facility] within last 24 hours No results found for: WBC, HGB, HCT, PLT, MCV No results found for: NA, K, CL, CO2, BUN, CREATININE, GLUCOSE, CALCIUM, MG, PHOS No results found for: AST, ALT, PROT, BILITOT, ALKPHOS, INR, APTT, LIPASE No results found for: CKTOTAL, CKMB, TROPONINI No results found for: PROCAL, CHOL, TRIG, HDL, TSH, VITD25, HGBA1C, VANCOTROUGH Assessment and Plan: # Myasthenic crisis # Myasthenia gravis - Follows with Dr. Gilmore neurology outpatient for MG, was on every 8 week infusions of Ultomiris until insurance rejected recent dose - Tunneled catheter placed 07/30 by IR - NIF with improving trend from -35 to -40; (more content not included)...[facility]04-01-2023 NoteRenal Progress Note At imaging study Long talk with mother who is very tearful and unhappy over a number of things in her care, but not necessarily here Will do pheresis #2 today Next tx Wednesday Will need TDC removed after and inal treament unless neuro recommends more [facility] Consult note* Renny Cantor MD - 07/31/2022 2:29 PM EDT Renal Consult 31 yo WF Myasthenia gravis Requires pheresis and we were trying to get done as outpatient but too anxious to do so so admitted Had first pheresis yesterday PMH: as above, epilepsy, anxiety ALL/MEDS: reviewed FMH: NC ROS: weakness, anxiety, BOURNE PE: 112/59 101 17 36.3 NAD RRR Lungs clear Abd NT LIJTDC No edema Weakness Labs reviewed A/P: Myasthenia gravis exacerbation- five pheresis, 1 plasma volume, albumin replacement, do treatments every other day [facility]okalemia- [id number] Emergency department Note* Rupal Garcia RN - 07/31/2022 10:12 AM EDT Transport at bedside to take the pt to 7E. Pt is calm and cooperative at this time, respirations even and unlabored. Rupal Garcia RN 07/31/22 1013 [id number] Emergency department Note* Rupal Garcia RN - 07/31/2022 10:12 AM EDT Transport at bedside to take the pt to 7E. Pt is calm and cooperative at this time, respirations even and unlabored. Rupal Garcia RN 07/31/22 1013 * Rupal Garcia RN - 07/31/2022 9:57 AM EDT Pt and family updated on the plan of care. Pt is lying in bed resting comfortably, respirations even and unlabored. Pt denies any needs at this time. Rupal Garcia RN 07/31/22 0958 * Rupal Garcia RN - 07/31/2022 9:57 AM EDT Pt is in for transport. Rupal Garcia RN 07/31/22 0957 * Rupal Garcia RN - 07/31/2022 9:38 AM EDT Internal medicine at bedside. Rupal Garcia RN 07/31/22 0938 * Rupal Garcia RN - 07/31/2022 9:00 AM EDT Patient laying in bed resting comfortably, respirations even and unlabored. No sx of distress noted. Pt medicated per order. Pt and family deny any needs at this time. No new orders. Rupal Garcia RN 07/31/22 0923 * Sissy Weeks RN - 07/31/2022 8:59 AM EDT Admitting at bedside. Sissy Weeks RN 07/31/22 0859 * Rupal Garcia RN - 07/31/2022 7:55 AM EDT Introduced self to pt. Pt is laying in bed resting comfortably, respirations even and unlabored. Nosx of distress noted at this time. Patient denies any needs. No new orders at this moment. Rupal Garcia RN 07/31/22 0801 * Rupal Garcia RN - 07/31/2022 7:36 AM EDT Report received from [facility] RN. Rupal Garcia RN 07/31/22 0736 * Micki Michael RN - 07/31/2022 7:19 AM EDT Patient provided with breakfast menu. Family at bedside. Family provided with coffee. Patients ice pack was refilled. Patient has no further needs at this time. Micki Michael RN 07/31/22 0721 * Leslie Casillas RN - 07/30/2022 8:32 PM EDT Called pharmacy requesting patients 6 o'clock medications. Spoke to Rich. He said he will send them. Leslie Casillas RN 07/30/222038 * Maria L Hightower RN - 07/30/2022 7:49 PM EDT Patient up to BS for large BM, family at bedside. Maria L Hightower RN 07/30/221948 * Leslie Casillas RN - 07/30/2022 6:54 PM EDT Patient back from having infusions. Leslie Casillas RN 07/30/221853 * Leslie Casillas RN - 07/30/2022 4:34 PM EDT Patient had episode of emesis. Order for zofran in JUL. Patient has IV port I was going to access before going for infusion. After gathering supplies At bedside. Transport arrived shortly after to take patient for infusion. Gave patient ODT zofran and patient transported to dialysis. Leslie Casillas RN 07/30/22 1637 * Edwige Bob PA-C - 07/30/2022 12:40 PM EDT Emergency Department Encounter [facility] EMERGENCY DEPT Patient: Doug Flanagan : 1990 Date of Evaluation: 07/30/2022 ED Provider: Edwige Bob PA-C I saw the patient as the Clinician in Triage and performed a brief history and physical exam, established acuity, and ordered appropriate tests to develop basic plan of care. I wore appropriate PPE for the entirety of this encounter. Brief HPI: In brief, Doug Flanagan is a 31 y.o. female that presents for concern of myasthenia gravis crisis. Patient says that she has been in touch with her neurologist to arrange for a port to beplaced for her so she could receive plasmapheresis. Patient says that she attempted to get this done outpatient but she was told that she needs to be admitted to the hospital in order to receive the plasmapheresis treatment. Patient says that she feels like she has had generalized fatigue, weakness, and shortness of breath getting progressively worse over the last several days. No recent fever, chills, abdominal pain, nausea, vomiting. Focused Physical exam: Alert, oriented, no acute distress. Vital signs markable for elevated heart rate. Cardiac auscultation with elevated rate, regular rhythm. Lungs clear to auscultation bilaterally. Plan/MDM: We will obtain labs, imaging, and anticipate admission for further treatment. Patients symptoms are consistent with sepsis, severe sepsis, or septic shock (If yes use .sepsiscoremeasure): No Please see subsequent provider note for further details and disposition (Comment: Please note this report has been produced using speech recognition software and may contain errors related to that system including errors in grammar, punctuation, and spelling as well as words and phrases that may be inappropriate. If there are any questions or concerns please feel free to contact the dictating provider for clarification) Edwige Bob PA-C [employer] Edwige Bob PA-C 07/30/22 1443 * Regina Walls MD - 07/30/2022 12:40 PM EDT EMERGENCY DEPARTMENT ENCOUNTER Pt Name: Doug Flanagan Birthdate 1990 Date of evaluation: 07/30/2022 ED Provider: Regina Walls MD CHIEF COMPLAINT Chief Complaint Patient presents with Fatigue Chest Pain Pt has hx of Myasthenia Gravis. Pt was here today for a port placement and to receive plasmapheresis. Pt is awake and alert, came here because she is feeling CP and headache, SOB. States she is having a flare up. HISTORY OF PRESENT ILLNESS (Location/Symptom, Timing/Onset, Context/Setting, Quality, Duration, Modifying Factors, Severity) Note limiting factors. I wore appropriate PPE for the entirety of this encounter. HPI Doug Flanagan is a 31 y.o. female who presents to the emergency department for plasmapheresis. History of myasthenia gravis and epilepsy. Has been unable to obtain her MG medication for the past 10 days because of issues with her insurance. Had port placed today and went to dialysis center but wastold they would not perform the plasmapheresis as an outpatient and she would need to be admitted. Complains of weakness, nausea, cough productive of white sputum which sometimes also has bright red blood, lower back pain, double vision, pain with breathing, intermittent diarrhea. States her weakness is now so that her mother is having to help her shower. Also has some mild pain around her accesssite and soreness in her lower chest which she describes as feeling like her diaphragm. States these symptoms all started since being off of her medication and have been progressively worsening. Experienced similar symptoms during the initial onset of her MG but states they were not this severe. Took her seizure medications today. Nursing Notes were reviewed. Limitations to history: None Outside historians: Parent REVIEW OF SYSTEMS Review of Systems Pertinent positives and negatives as per HPI. PAST MEDICAL HISTORY Past Medical History: Diagnosis Date E. coli colitis 2010 Epilepsy (HCC) Myasthenia gravis (HCC) SURGICAL HISTORY Past Surgical History: Procedure Laterality Date APPENDECTOMY 2006 HIP ARTHROSCOPY (HISTORICAL) Right 2013 OTHER SURGICAL HISTORY Right 07/22/2018 THORACIS RESECTION, THYMIC TISSUE, ANT MEDIASTINAL THYMECTOMY CURRENT MEDICATIONS Previous Medications ACETAMINOPHEN (TYLENOL) 325 MG TABLET Take 650 mg by mouth every 6 hours as needed. APIXABAN (ELIQUIS) 5 MG TABLET Take 5 mg by mouth in the morning and 5 mg in the evening. DIAZEPAM (VALIUM) 10 MG TABLET Take 10 mg by mouth every 8 hours as needed (this is a nasal spray not tablet, Valtoco). DIAZEPAM (VALTOCO 10 MG DOSE) 10 MG/0.1ML LIQUID as directed. ESCITALOPRAM (LEXAPRO) 10 MG TABLET Take 10 mg by mouth daily. LAMOTRIGINE (LAMICTAL) 100 MG TABLET Take 100 mg by mouth. LAMOTRIGINE (LAMICTAL) 200 MG TABLET Take 250 mg by mouth. LEVONORGESTREL (MIRENA) 20 MCG/DAY IUD 1 each by IntraUTERine route. LORAZEPAM (ATIVAN) 1 MG TABLET Take by mouth. OXCARBAZEPINE (TRILEPTAL) 150 MG TABLET Take 150 mg by mouth. RAVULIZUMAB-CWVZ (ULTOMIRIS) 1100 MG/11ML INJECTION Infuse 1,100 mL into a venous catheter every 8 (eight) weeks. RAVULIZUMAB-CWVZ (ULTOMIRIS) 300 MG/3ML INJECTION as directed Intravenous ZONISAMIDE (ZONEGRAN) 100 MG CAPSULE Take 300 mg by mouth daily. ZONISAMIDE (ZONEGRAN) 100 MG CAPSULE Take 200 mg by mouth daily. ALLERGIES Dilantin [phenytoin], Keppra [levetiracetam], Pcn [penicillins], Shellfish- derived products, and Other FAMILY HISTORY Family History Problem Relation Name Age of Onset Cancer Maternal Grandmother Heart disease Maternal Grandfather Multiple sclerosis Sister SOCIAL HISTORY Social History Socioeconomic History Marital status: Single Tobacco Use Smoking status: Never Smokeless tobacco: Never Substance and Sexual Activity Alcohol use: No Drug use: No Social Determinants of Health Intimate Partner Violence: Not At Risk Fear of Current or Ex-Partner: No Emotionally Abused: No Physically Abused: No Sexually Abused: No SCREENINGS PHYSICAL EXAM ED Triage Vitals [07/30/22 1248] Temp Heart Rate Resp BP 36.8 C (98.3 F) (!) 112 18 114/80 SpO2 Temp Source Heart Rate Source Patient Position 96 % Oral Monitor -- BP Location FiO2 (%) -- -- Physical Exam Vitals reviewed. Constitutional: Appearance: She is ill-appearing. She is not toxic-appearing or diaphoretic. Comments: Left chest catheter HENT: Mouth/Throat: Mouth: Mucous membranes are moist. Pharynx: Oropharynx is clear. Cardiovascular: Rate and Rhythm: Normal rate and regular rhythm. Heart sounds: Normal heart sounds. No murmur heard. No friction rub. No gallop. Pulmonary: Effort: Pulmonary effort is normal. No respiratory distress. Breath sounds: Normal breath sounds. No wheezing, rhonchi or rales. Abdominal: Palpations: Abdomen is soft. Musculoskeletal: Right lower leg: No edema. Left lower leg: No edema. Skin: General: Skin is warm and dry. Neurological: General: No focal deficit present. Mental Status: She is alert. Psychiatric: Mood and Affect: Mood normal. Behavior: Behavior normal. DIAGNOSTIC RESULTS RADIOLOGY (Per Emergency Physician): Interpretation per the Radiologist below, if available at the time of this note: XR chest 2 views Final Result No acute cardiopulmonary disease. Report Dictated on Electronically Signed By: Khurram Segura Electronically Signed Date/Time: 07/30/2022 4:11 PM EDT LABS: Labs Reviewed BASIC METABOLIC PANEL - Abnormal Result Value SODIUM 139 POTASSIUM 3.5 CHLORIDE 108 (*) CARBON DIOXIDE 21 (*) UREA NITROGEN 10 CREATININE 0.62 GLUCOSE 94 CALCIUM 9.2 ANION GAP 10 eGFR >90.0 CBC WITH AUTO DIFFERENTIAL - Abnormal Auto WBC 10.8 (*) RBC 4.92 Hemoglobin 13.6 Hematocrit 42.1 MCV 85.6 MCH 27.7 MCHC 32.4 RDW 14.2 Platelets 243 MPV 7.1 (*) nRBC 0.0 Neutrophils Relative 76.1 Lymphocytes Relative 15.5 (*) Monocytes Relative 6.7 Eosinophils Relative 1.2 Basophils Relative 0.5 Neutrophils Absolute 8.3 (*) Lymphocytes Absolute 1.7 Monocytes Absolute 0.7 Eosinophils Absolute 0.1 Basophils Absolute 0.1 MAGNESIUM - Normal MAGNESIUM 1.9 HCG QUANTITATIVE BLOOD HCG QUANTITATIVE <2 Narrative: Values in should double every 2 to 3 days for the first 6 weeks. Elevated concentrations of human chorionic gonadotropin (hCG) measured in the first trimester of are observed in normal , but may serve as an indication of chorionic carcinoma, hydatiform mole, or multiplepregnancy. Decreasing hCG concentrations indicate threatened or missed , recent terminationof , ectopic , gestosis or intrauterine . Ergina- and postmenopausal females may have detectable hCG concentrations (< or = to 14 mIU/mL) due to pituitary production of hCG. Serum follicle-stimulating hormone measurement may aid in ruling-out in this population. Cutoffs of greater than 20 to 45 mIU/mL have been suggested and are method dependent. False-elevations(called phantom human chorionic gonadotropin: hCG) may occur with patients who have human antianimal or heterophilic antibodies. Some specimens may not dilute linearly due to abnormal forms of hCG. Elevated hCG concentrations not associated with are found in patients with other diseases such as tumors of the germ cells, ovaries, bladder, pancreas, stomach, lungs, and liver. This test isnot intended to detect or monitor tumors or gestational trophoblastic disease. All other labs were within normal range or not returned as of this dictation. EMERGENCY DEPARTMENT COURSE and DIFFERENTIAL DIAGNOSIS/MDM: Vitals: Vitals: 07/30/22 1248 07/30/22 1522 07/30/22 1632 BP: 114/80 100/68 95/56 BP Location: Left arm Left arm Patient Position: Sitting Lying Pulse: (!) 112 88 90 Resp: 18 16 15 Temp: 36.8 C (98.3 F) TempSrc: Oral SpO2: 96% 97% 97% Weight: 77.1 kg (170 lb) Height: 1.575 m (5' 2) The patient presented with a chief complaint of need for diaphoresis due to inability to obtain myasthenia gravis medication. Our workup consisted of ordering/reviewing CBC, BMP, Mg level, CXR, EKG. ED Course as of 08/07/22 1333 Taylor Jul 30, 2022 1525 Patient presents for plasmapheresis after having issues obtaining medication due to insurance.Had access placed today and was sent to dialysis center but they told her plasmapheresis was only available for inpatients. [VW] 1640 Zofran given for nausea. Patient admitted. [VW] ED Course User Index [VW] Regina Walls MD Diagnoses as of 08/07/22 1333 Myasthenic crisis (CMS/HCC) (HCC) Adjustment reaction with anxiety and depression ED Medications managed: Medications calcium gluconate 2000 mg in 100 mL IVPB premix (has no administration in time range) albumin human 5 % IV solution 2,000 mL (has no administration in time range) citrate dextrose (ACD-A) 0.73-2.45-2.2 GM/100ML infusion - Pyxis ADS Override Pull (has no administration in time range) ondansetron ODT (Zofran-ODT) disintegrating tablet 4 mg (4 mg Oral Given 07/30/22 1631) Or ondansetron (Zofran) injection 4 mg ( IntraVENous See Alternative 07/30/22 1631) PROCEDURES: Unless otherwise noted below, none FINAL IMPRESSION 1. Myasthenic crisis (CMS/HCC) (HCC) DISPOSITION Admit 07/30/2022 04:26:13 PM PATIENT REFERRED TO: No follow-up provider specified. DISCHARGE MEDICATIONS: New Prescriptions No medications on file (Comment: Please note this report has been produced using speech recognition software and may contain errors related to that system including errors in grammar, punctuation, and spelling, as well as words and phrases that may be inappropriate. If there are any questions or concerns please feel freeto contact the dictating provider for clarification.) Regina Walls MD (electronically signed) Emergency Medicine Provider Regina Walls MD Resident 07/30/22 1702 * Rivka Cid DO - 07/30/2022 12:40 PM EDT Emergency Department Encounter [facility] EMERGENCY DEPT Patient: Doug Flanagan : 1990 Date of Evaluation: 07/30/2022 ED Supervising Physician: Rivka Cid DO I independently examined and evaluated Doug Flanagan. This will serve as my Supervisory note and shared attestation. I did perform a substantive portion of the visit including all aspects of the Medical Decision Making. I wore appropriate PPE for the entirety of this encounter. In brief, Doug Flanagan is a 31 y.o. female that presents to the emergency department for fatigue and chest pain. Patient does have some underlying myasthenia gravis. Patient had gone to an outpatient facility in which they were going to do plasmapheresis however they do not do plasmapheresis on an outpatient basis patient was sent to the emergency department. Focused exam: At this time is otherwise doing well Brief ED course/MDM: At this time does present for some chest pain fatigue. Differential does include myasthenia gravis crisis, ACS, pneumonia. Did have lab work consisting of a BMP which was relatively unremarkable, hCG quant was negative, CBC is negative Did have a chest x-ray which was only interpreted by myself was otherwise negative. Did have a EKG which was independently interpreted no STEMI noted unchanged from previous EKG in 2019. In the patient's need for the plasmapheresis we have elected to admit the patient to the hospital. Patient was agreeable and amenable and has been admitted MDM elements: The patient presented with chief complaint of chest pain and fatigue. The differential diagnosis associated with this patient's presentation includes CBC, CMP, hCG chestx-ray, EKG. Our workup consisted of ordering/reviewing: ACS, myasthenia gravis crisis, pneumonia. Patient is in agreement with this plan. All diagnostic, treatment, and disposition decisions were made by myself in conjunction with the Resident. I also supervised brennan portions of any procedures performed by the Resident. For all further details of the patient's emergency department visit, please see their documentation. (Comment: Please note this report has been produced using speech recognition software and may contain errors related to that system including errors in grammar, punctuation, and spelling, as well as words and phrases that may be inappropriate. If there are any questions or concerns please feel freeto contact the dictating provider for clarification.) Rivka Cid DO [employer] Rivka Cid DO 07/30/221722 * Cielo Recinos RN - 07/30/2022 12:40 PM EDT Bed: 26 Expected date: Expected time: Means of arrival: Comments: triage Cielo Recinos RN 07/30/22 1412 documented in this [address]31-2023 Emergency department Note* Rupal Garcia RN - 07/31/2022 9:57 AM EDT Pt and family updated on the plan of care. Pt is lying in bed resting comfortably, respirations even and unlabored. Pt denies any needs at this time. Rupal Garcia RN 07/31/22 0958 [id number] Emergency department Note* Rupal Garcia RN - 07/31/2022 9:57 AM EDT Pt is in for transport. Rupal Garcia RN 07/31/22 0957 [id number] Emergency department Note* Rupal Garcia RN - 07/31/2022 9:38 AM EDT Internal medicine at bedside. Rupal Garcia RN 07/31/22 0938 [id number] Consult note* Josemanuel Le MD - 07/31/2022 9:33 AM EDT Associated Order(s): IP CONSULT TO NEUROLOGY Neurology Consult Note - Neurology Service Patient Name: Doug Flanagan Patient : 1990 Acct: [id number] Date of Admission: 07/30/2022 Room/Bed: PCP: DONNA PERDOMO MD 07/31/2022 Reason for Consult: History of Presenting Illness: The patient is 31 y.o. female who is being seen as a new consult formyasthenic crisis. PMHx is significant for myasthenia gravis, generalized epilepsy, and depression/anxiety. Symptom: Left frontal headaches (2/week), blurry vision, double vision, generalized weakness of allextremities, trouble breathing, stabbing abdominal pain, feeling of band around chest, nausea andvomiting. Manner of onset: Gradual over 3 weeks Description of event(s): Patient has a history of myasthenia gravis treated with ultomiris infusions every 8 weeks since 01/2022 (previously on solaris) and it was very well controlled with minimalsymptoms. She was due for her infusion 11 days ago, but it was denied by insurance causing a worsening of all the above symptoms. She states she normally starts feeling these symptoms mildy in the wee k leading up to her infusion but they are relieved shortly after ultomiris infusion, without it they have now been worsening to the point where she cannot perform activities of daily living without assistance due to her profound weakness. Duration: 2-3 weeks Current state: Distressed from symptoms not being relieved. Severity: Moderate Modifying factors: None Associated symptoms: Listed above. Review of systems: General: No reported chills, no fever, no obesity. HEENT: Positive for headache, no head injury. No reported eye pain or eye congestion. No reported ear pain or ear congestion. No reported nasal congestion or nosebleed. No reported throat congestion or infection. Neck: No reported neck pain. No reported neck stiffness. Respiratory: Positive for shortness of breath. No reported wheezing. Cardiac: No reported chest pain and no reported palpitations. Gastrointestinal: No reported nausea, vomiting, abdominal pain and, no reported diarrhea. Musculoskeletal: Positive for abdominal and lower chest band-like tightness. No reported arthralgia and, no reported low back pain. Endocrine: No reported thyroid disease. No reported type 1 or type 2 diabetes mellitus. Psychiatry: Positive anxiety and depression. Neurological: Positive weakness in extremities. Positive Slurred speech. Positive for seizure a fewdays ago. Positive for visual changes (blurry and double vision). Positive for weakness causing gait or ambulatory decline. No reported tongue bite or loss of bowel/bladder control. No reported stroke. No reported vertigo. No reported hearing loss. No reported alteration in mental state. Past medical History, surgical history, family history and social history were reviewed with the patient/care provider and were reviewed in the chart. Only the available information is documented below. Thank you. Past Medical History: Past Medical History: Diagnosis Date E. coli colitis 2011 Epilepsy (HCC) Myasthenia gravis (HCC) Past Surgical History: Past Surgical History: Procedure Laterality Date APPENDECTOMY 2006 HIP ARTHROSCOPY (HISTORICAL) Right 2013 OTHER SURGICAL HISTORY Right 07/22/2018 THORACIS RESECTION, THYMIC TISSUE, ANT MEDIASTINAL THYMECTOMY Family History: Family History Problem Relation Name Age of Onset Cancer Maternal Grandmother Heart disease Maternal Grandfather Multiple sclerosis Sister Social History: TOBACCO: reports that she has never smoked. She has never used smokeless tobacco. ETOH: reports no history of alcohol use. RECREATIONAL DRUG USE: Social History Substance and Sexual Activity Drug Use No The patient's medications and allergies were reviewed and the available information is documented below. Thank you. Allergies: Dilantin [phenytoin], Keppra [levetiracetam], Pcn [penicillins], Shellfish-derived products, and Other Home Medications: Prior to Admission medications Medication Sig Start Date End Date Taking? Authorizing Provider acetaminophen (Tylenol) 325 MG tablet Take 650 mg by mouth every 6 hours as needed. Historical Provider, apixaban (Eliquis) 5 MG tablet Take 5 mg by mouth in the morning and 5 mg in the evening. Historical Provider, diazePAM (Valium) 10 MG tablet Take 10 mg by mouth every 8 hours as needed (this is a nasal spray not tablet, Valtoco). Historical Provider, diazePAM (Valtoco 10 MG Dose) 10 MG/0.1ML liquid as directed. 02/18/21 Historical ProviderMD escitalopram (Lexapro) 10 MG tablet Take 10 mg by mouth daily. Historical Provider, lamoTRIgine (LaMICtal) 100 MG tablet Take 100 mg by mouth. Historical Provider, lamoTRIgine (LaMICtal) 200 MG tablet Take 250 mg by mouth. Historical Provider, levonorgestrel (Mirena) 20 MCG/DAY IUD 1 each by IntraUTERine route. Historical Provider, LORazepam (Ativan) 1 MG tablet Take by mouth. Historical Provider, OXcarbazepine (Trileptal) 150 MG tablet Take 150 mg by mouth. Historical ProviderMD ravulizumab-cwvz (Ultomiris) 1100 MG/11ML injection Infuse 1,100 mL into a venous catheter every 8 (eight) weeks. 10/6/22 Historical Provider, ravulizumab-cwvz (Ultomiris) 300 MG/3ML injection as directed Intravenous Historical Provider, zonisamide (Zonegran) 100 MG capsule Take 300 mg by mouth daily. Historical Provider, zonisamide (Zonegran) 100 MG capsule Take 200 mg by mouth daily. Historical Provider, Current Hospital Medications: Current Facility-Administered Medications: acetaminophen (Tylenol) tablet 650 mg, 650 mg, Oral, q6h PRN, 650 mg at 07/31/22 0156 OR acetaminophen (Tylenol) suppository 650 mg, 650 mg, Rectal, q6h PRN, Antwon Nascimento DO apixaban (Eliquis) tablet 5 mg, 5 mg, Oral, BID, Antwon Nascimento DO, 5 mg at 07/31/22843 escitalopram (Lexapro) tablet 10 mg, 10 mg, Oral, Daily, Antwon Nascimento DO, 10 mg at 07/30/222050 heparin flush injection 100 Units, 100 Units, IntraCATHeter, q12h, Juliana Tavares MD heparin flush injection 100 Units, 100 Units, IntraCATHeter, PRN, Juliana Tavares MD heparin injection 2,100 Units, 2,100 Units, IntraCATHeter, PRN, Renny Cantor MD heparin injection 2,200 Units, 2,200 Units, IntraCATHeter, PRN, Renny Cantor MD ketorolac (Toradol) injection 15 mg, 15 mg, IntraVENous, q6h PRN, Juliana Tavares MD, 15 mg at 07/31/22 0834 lactated Ringer's infusion, 100 mL/hr, IntraVENous, Continuous, Juliana Tavares MD, Last Rate: 100 mL/hr at 07/31/22 0841, 100 mL/hr at 07/31/22 08 lamoTRIgine (LaMICtal) tablet 100 mg, 100 mg, Oral, Daily, Antwon Barboururu, DO, 100 mg at 07/31/22843 lamoTRIgine (LaMICtal) tablet 250 mg, 250 mg, Oral, Nightly, Antwon Orellanau, DO, 250 mg at 03/30/23 2050 LORazepam (Ativan) tablet 1 mg, 1 mg, Oral, q12h PRN, Vinuth Koduru, DO ondansetron ODT (Zofran-ODT) disintegrating tablet 4 mg, 4 mg, Oral, q8h PRN, 4 mg at 07/30/22 1631OR ondansetron (Zofran) injection 4 mg, 4 mg, IntraVENous, q6h PRN, Regina Walls MD ondansetron ODT (Zofran-ODT) disintegrating tablet 4 mg, 4 mg, Oral, q8h PRN OR ondansetron (Zofran) injection 4 mg, 4 mg, IntraVENous, q6h PRN, Vinuth Koduru, DO, 4 mg at 07/30/22 1916 OXcarbazepine (Trileptal) tablet 150 mg, 150 mg, Oral, Daily, Vinuth Koduru, DO, 150 mg at 050 polyethylene glycol (PEG) 3350 (Miralax) packet 17 g, 17 g, Oral, Daily PRN, Vinuth Koduru, DO potassium chloride CR (Klor-Con M10) ER tablet 40 mEq, 40 mEq, Oral, BID, Juliana Tavares MD, 40 mEqat 07/31/22 0842 sodium chloride 0.9 % infusion, 5-250 mL/hr, IntraVENous, PRN, Vinuth Koduru, DO sodium chloride 0.9% (NS) flush 10 mL, 10 mL, IntraCATHeter, q12h, Juliana Tavares MD, 10 mL at 07/31/22 0810 sodium chloride 0.9% (NS) flush 10 mL, 10 mL, IntraCATHeter, PRN, Juliana Tavares MD sodium chloride 0.9% (NS) flush 5-40 mL, 5-40 mL, IntraVENous, q12h, Vinuth Koduru, DO, 10 mL at 07/31/22 0610 sodium chloride 0.9% (NS) flush 5-40 mL, 5-40 mL, IntraVENous, PRN, Vinuth Koduru, DO zonisamide (Zonegran) capsule 200 mg, 200 mg, Oral, Daily, Vinuth Koduru, DO, 200 mg at 07/31/22 0848 zonisamide (Zonegran) capsule 300 mg, 300 mg, Oral, Nightly, Antwon Nascimento DO Current Outpatient Medications: acetaminophen (Tylenol) 325 MG tablet, Take 650 mg by mouth every 6 hours as needed., Disp: , Rfl: apixaban (Eliquis) 5 MG tablet, Take 5 mg by mouth in the morning and 5 mg in the evening., Disp: ,Rfl: diazePAM (Valium) 10 MG tablet, Take 10 mg by mouth every 8 hours as needed (this is a nasal spray not tablet, Valtoco)., Disp: , Rfl: diazePAM (Valtoco 10 MG Dose) 10 MG/0.1ML liquid, as directed., Disp: , Rfl: escitalopram (Lexapro) 10 MG tablet, Take 10 mg by mouth daily., Disp: , Rfl: lamoTRIgine (LaMICtal) 100 MG tablet, Take 100 mg by mouth., Disp: , Rfl: lamoTRIgine (LaMICtal) 200 MG tablet, Take 250 mg by mouth., Disp: , Rfl: levonorgestrel (Mirena) 20 MCG/DAY IUD, 1 each by IntraUTERine route., Disp: , Rfl: LORazepam (Ativan) 1 MG tablet, Take by mouth., Disp: , Rfl: OXcarbazepine (Trileptal) 150 MG tablet, Take 150 mg by mouth., Disp: , Rfl: ravulizumab-cwvz (Ultomiris) 1100 MG/11ML injection, Infuse 1,100 mL into a venous catheter every 8(eight) weeks., Disp: , Rfl: ravulizumab-cwvz (Ultomiris) 300 MG/3ML injection, as directed Intravenous, Disp: , Rfl: zonisamide (Zonegran) 100 MG capsule, Take 300 mg by mouth daily., Disp: , Rfl: zonisamide (Zonegran) 100 MG capsule, Take 200 mg by mouth daily., Disp: , Rfl: Continuous Infusions: lactated Ringer's, 100 mL/hr, Last Rate: 100 mL/hr (07/31/22 0841) Vital Signs: Patient Vitals for the past 24 hrs: BP Temp Temp src Pulse Resp SpO2 Height Weight 07/31/22 0717 104/77 -- -- 98 18 98 % -- -- 07/31/22 0539 100/64 -- -- 88 18 98 % -- -- 07/31/22 0412 108/73 -- -- 85 18 95 % -- -- 07/31/22 0237 98/61 -- -- 82 15 95 % -- -- 07/31/22 0132 98/62 -- -- 86 15 99 % -- -- 07/31/22 0046 103/61 -- -- 87 15 94 % -- -- 07/30/220 101/70 -- -- 90 15 95 % -- -- 07/30/222236 100/64 -- -- 94 15 97 % -- -- 07/30/22 2158 103/70 -- -- 83 14 95 % -- -- 07/30/222056 108/68 -- -- 88 15 98 % -- -- 07/30/22 1959 108/74 -- -- 93 16 98 % -- -- 07/30/22 1858 105/68 -- -- 99 16 97 % -- -- 07/30/22 1632 95/56 -- -- 90 15 97 % -- -- 07/30/22 1522 100/68 -- -- 88 16 97 % -- -- 07/30/22 1248 114/80 36.8 C (98.3 F) Oral (!) 112 18 96 % 1.575 m (5' 2) 77.1 kg (170 lb) Physical Examination: General Exam: Constitutional: The patient is not obese. Cardiovascular: S1 and S2, regular rate and rhythm no overt murmurs. No carotid bruit and normal carotid pulse. Extremities: No cyanosis, no clubbing, and no edema. Ophthalmology/funduscopic exam: Unremarkable/normal. Neurological Exam: Dexterity: The patient is RIGHT handed. Mental Status: Alert, Awake, Oriented x 4, Normal Speech and intact comprehension - 3/3 repetition and recall. Follows 1-3 step commands. Fund of knowledge: Normal Attention/concentration: Normal Cranial Nerves: CN-II, CN-III, CN-IV, CN-V, CN-, CN-VII, CN-VIII, CN-IX, CN-X, CN-XI and, CN-XII are within normal limits bilaterally. Motor: Bulk = Symmetric and within normal limits bilaterally. Tone = Symmetric and within normal limits bilaterally. Strength = 4+/5 in all 4 extremities. DTRs = 3+ throughout. Clonus 2-3 beats bilaterally. Plantars = Down-going bilaterally. Abnormal movements = None. Opposition = decreased in both upper extremities. Pronator Drift = No pronator drift on the RIGHT and, no pronator drift on the LEFT side. Sensory: Light touch, pinprick and vibration exams are within normal limits. Coordination: Finger to nose is normal on the right side and, on the left side. Heel to peters is normal on the right side and, on the left side. Rapid alternation movements are slowed on the right side and on the left side. Gait: Deferred due to patient's inability to participate at this time. Romberg: Deferred due to patient's inability to participate at this time. NIHSS score: N/A. Results: Labs: Last 24hrs Recent Results (from the past 24 hour(s)) Basic metabolic panel Collection Time: 07/30/22 1:12 PM Result Value Ref Range SODIUM 139 135 - 145 mmol/L POTASSIUM 3.5 3.5 - 5.1 mmol/L CHLORIDE 108 (H) 98 - 107 mmol/L CARBON DIOXIDE 21 (L) 22 - 30 mmol/L UREA NITROGEN 10 7 - 17 mg/dL CREATININE 0.62 0.52 - 1.04 mg/dL GLUCOSE 94 70 - 100 mg/dL CALCIUM 9.2 8.4 - 10.4 mg/dL ANION GAP 10 3 - 13 mmol/L eGFR >90.0 >60.0 mL/min/1.73m*2 CBC auto differential Collection Time: 07/30/22 1:12 PM Result Value Ref Range Auto WBC 10.8 (H) 3.6 - 10.7 10*3/uL RBC 4.92 3.8 - 5.20 10*6/uL Hemoglobin 13.6 11.7 - 16.0 g/dL Hematocrit 42.1 35.0 - 47.0 % MCV 85.6 80.0 - 98.0 fL MCH 27.7 26.0 - 34.0 pg MCHC 32.4 32.0 - 36.0 % RDW 14.2 11.5 - 14.5 % Platelets 243 140 - 440 10*3/uL MPV 7.1 (L) 7.4 - 12.4 fL nRBC 0.0 0.0 - 2.0 /100 WBCs Neutrophils Relative 76.1 40.0 - 80.0 % Lymphocytes Relative 15.5 (L) 20.0 - 40.0 % Monocytes Relative 6.7 2.0 - 10.0 % Eosinophils Relative 1.2 1.0 - 6.0 % Basophils Relative 0.5 0.0 - 2.0 % Neutrophils Absolute 8.3 (H) 1.8 - 7.0 10*3/uL Lymphocytes Absolute 1.7 1.0 - 4.3 10*3/uL Monocytes Absolute 0.7 0.0 - 0.8 10*3/uL Eosinophils Absolute 0.1 0.0 - 0.5 10*3/uL Basophils Absolute 0.1 0.0 - 0.2 10*3/uL Magnesium Collection Time: 07/30/22 1:12 PM Result Value Ref Range MAGNESIUM 1.9 1.6 - 2.3 mg/dL Quantitative hCG Collection Time: 07/30/22 1:12 PM Result Value Ref Range HCG QUANTITATIVE <2 Females < 5 mIU/mL ECG 12 lead Collection Time: 07/30/22 1:45 PM Result Value Ref Range Heart Rate 105 bpm QRSD Interval 95 ms QT Interval 348 ms QTC Interval 462 ms P Belden 38 degrees QRS Belden 8 degrees T Wave Belden 3 degrees NV Interval 185 ms Hepatitis B surface antibody Collection Time: 07/30/22 6:30 PM Result Value Ref Range HEPATITIS B VIRUS SURFACE AB 314.1 mIU/mL Hepatitis B surface antigen Collection Time: 07/30/22 6:30 PM Result Value Ref Range HEPATITIS B VIRUS SURFACE AG Not Detected Not Detected CBC auto differential Collection Time: 07/31/22 6:41 AM Result Value Ref Range Auto WBC 10.0 3.6 - 10.7 10*3/uL RBC 4.60 3.8 - 5.20 10*6/uL Hemoglobin 13.0 11.7 - 16.0 g/dL Hematocrit 38.9 35.0 - 47.0 % MCV 84.5 80.0 - 98.0 fL MCH 28.2 26.0 - 34.0 pg MCHC 33.4 32.0 - 36.0 % RDW 13.9 11.5 - 14.5 % Platelets 202 140 - 440 10*3/uL MPV 7.6 7.4 - 12.4 fL nRBC 0.0 0.0 - 2.0 /100 WBCs Neutrophils Relative 77.3 40.0 - 80.0 % Lymphocytes Relative 13.9 (L) 20.0 - 40.0 % Monocytes Relative 7.4 2.0 - 10.0 % Eosinophils Relative 1.0 1.0 - 6.0 % Basophils Relative 0.4 0.0 - 2.0 % Neutrophils Absolute 7.8 (H) 1.8 - 7.0 10*3/uL Lymphocytes Absolute 1.4 1.0 - 4.3 10*3/uL Monocytes Absolute 0.7 0.0 - 0.8 10*3/uL Eosinophils Absolute 0.1 0.0 - 0.5 10*3/uL Basophils Absolute 0.0 0.0 - 0.2 10*3/uL Comprehensive metabolic panel Collection Time: 07/31/22 6:41 AM Result Value Ref Range SODIUM 139 135 - 145 mmol/L POTASSIUM 3.3 (L) 3.5 - 5.1 mmol/L CHLORIDE 109 (H) 98 - 107 mmol/L CARBON DIOXIDE 22 22 - 30 mmol/L ANION GAP 8 3 - 13 mmol/L UREA NITROGEN 8 7 - 17 mg/dL CREATININE 0.67 0.52 - 1.04 mg/dL GLUCOSE 94 70 - 100 mg/dL CALCIUM 8.6 8.4 - 10.4 mg/dL AST (SGOT) 17 15 - 46 U/L ALT 8 0 - 34 U/L ALKALINE PHOSPHATASE 43 38 - 126 U/L ALBUMIN 4.1 3.5 - 5.0 g/dL BILIRUBIN, TOTAL 0.7 0.2 - 1.3 mg/dL TOTAL PROTEIN 5.9 (L) 6.3 - 8.2 g/dL eGFR >90.0 >60.0 mL/min/1.73m*2 Magnesium Collection Time: 07/31/22 6:41 AM Result Value Ref Range MAGNESIUM 1.7 1.6 - 2.3 mg/dL Since admission: No results for input(s): CKTOTAL, TROPONINI in the last 72 hours. Recent Labs 07/31/22 0641 ALKPHOS 43 ALT 8 AST 17 BILITOT 0.7 @[facility]) ABGs:)No results for input(s): PH, PO2, PCO2, HCO3, O2SAT in the last 72 hours. No lab exists for component: BE Cultures: Blood culture #1: No lab exists for component: BC Blood culture #2: No lab exists for component: BLOODCULT2 Antiepileptic levels: No results for input(s): PHENYTOIN, PHENOBARB, VALPROATE in the last 72 hours. No lab exists for component: CARBTOT, LAMOTRIG, KEPPRA Coagulation: No results for input(s): INR in the last 72 hours. CSF: No results for input(s): CULTURE, PROTEIN in the last 72 hours. No lab exists for component: CHARCSF, CELL COUNT, GRAM STAIN Stroke Specific Labs: Lipids: No results for input(s): CHOL, TRIG, HDL, AMYLASE, LIPASE in the last 72 hours. No lab exists for component: LDLCHOLESTEROL HgA1c: No lab exists for component: LABA1C TSH: No results found for: TSH Radiology Personal review: Neurophysiology Results: EEG: N/A EMG/NCS: N/A. ASSESSMENT / PLAN / RECOMMENDATIONS : Assessment: Myasthenic crisis being managed with plasmapheresis. Possible transverse myelitis vs. multiple sclerosis vs. Other autoimmune due to diffuse UMN signs and hug sign. Recommendations: MRI Brain, cervical spine, and thoracic spine. Continue plasmapheresis every other day x5 treatments. Agree with checking levels on seizure medications. Disposition/Discharge issues: None Thank you. Patient seen and discussed with Dr. Painter Patient independently examined and evaluated by resident physician. Agree with above history, physical examination, assessment, and plan with changes/additions made through out. Associated attestation - Lupe Painter MD - 08/01/2022 9:36 AM EDT Attestation Note: I have personally performed a face to face diagnostic evaluation on this patient. Labs, maging studies and electronic medical record have been reviewed by me. This note documented by the resident physician reflects my history, exam and medical decision making as discussed with the resident physician. I have reviewed and agree with the care plan. Changes were made in the orders as necessary My history, exam, assessment and plan are as follows. Comments by the neurology attending: The patient has a longstanding history of myasthenia gravis which was well controlled on Ultomiris treatment. Apparently, for reasons unclear to me, the patient's insurance declined the approval of patient's medically necessary treatment with Ultomiris that, more likely than not, resulted in patient's current episode of shortness of breath, generalized body weakness and, some visual difficulties. The patient has been experiencing difficulty in ambulation due to her severe generalized weakness. The patient is otherwise alert and oriented x4 with normal speech and, she can follow 1-3 step commands. The patient has brisk deep tendon reflexes throughout with bilateral ankle clonus. For detailed H&P, please review with the physician's note. Clinical impression: Myasthenia gravis exacerbation, probably due to inability to take the Ultomiris which was reportedly, denied by patient's insurance. Recommendations: Restart Ultomiris treatment [place]. Recommend that this essential treatment for patient's documented control of myasthenia gravis be reinstated by the insurance company, as soon as possible. Outpatient neurology follow-up, 3 to 4 weeks post discharge. Physical and Occupational Therapy as well as respiratory therapy consults. Supportive care and, please implement fall precautions. Due to hyperreflexia not explained by patient's myasthenia gravis symptoms, MRI of the brain, cervical and thoracic spines have been ordered and, remains pending. Disposition: Neurology service will make further recommendations after reviewing the patient's MRI studies that are pending. Further recommendations, per primary team. Attestation: I spent about 80 minutes in providing care to this patient including performing the H&P, reviewing labs, reviewing imaging studies, ordering tests, counseling patient and, discussing issues pertaining to acute exacerbation and its treatment including the necessity and side effects of the plasmaphoresis. The patient and her mother, present at the bedside, had numerous questions and concerns that were addressed to their expressed understanding and satisfaction. 51% of the total time was spent in providing counseling and coordinating care for this patient. [facility] Phone: [phone] NoteMed Team Progress Note Doug Flanagan : 1990(31 y.o.) Date: July 31, 2022 Med Team: [place] Attending: Dr. Zhao Chief Complaint: Impending MG crisis Subjective: - No acute events overnight. - Currently, patient has left sided headache, continues to have double vision. Overall feels slightly improved since her first plasmapheresis session - states she feels like she has a second wind in which she does not feel as well. Continues to have nausea, vomited 3 times overnight. - Continues to pain over left chest tunneled cath site - Does have some chest MSK tightness in which she feels like she cannot take an adequate breath - Denies any lightheadedness, dizziness, sensory deficit; denies any issues with drooling, eating - was able to tolerate her breakfast without issue Review of Systems Constitutional: Positive for chills and fatigue. HENT: Negative for drooling and trouble swallowing. Eyes: Positive for visual disturbance (blurry vision). Respiratory: Negative for cough, chest tightness and shortness of breath. Cardiovascular: Negative for chest pain and leg swelling. Gastrointestinal: Positive for abdominal pain, nausea and vomiting. Negative for constipation and diarrhea. Genitourinary: Negative for difficulty urinating. Skin: Pain around left chest tunneled cath Neurological: Positive for weakness and headaches. Negative for dizziness, light-headedness and numbness. Scheduled Meds:[Held by provider] apixaban, 5 mg, Oral, BID escitalopram, 10 mg, Oral, Daily lamoTRIgine, 100 mg, Oral, Daily lamoTRIgine, 250 mg, Oral, Nightly OXcarbazepine, 150 mg, Oral, Daily sodium chloride 0.9%, 5-40 mL, IntraVENous, q12h zonisamide, 200 mg, Oral, Daily zonisamide, 300 mg, Oral, Nightly Continuous Infusions: Objective: BP 100/64 (BP Location: Left arm, Patient Position: Lying) Pulse 88 Temp 36.8 ?C (98.3 ?F) (Oral) Resp 18 Ht 5' 2 (1.575 m) Wt 170 lb (77.1 kg) LMP 07/30/2022 SpO2 98% BMI 31.09 kg/m? Physical Exam Constitutional: General: She is not in acute distress. Appearance: Normal appearance. She is not ill-appearing. Comments: Overall appears more comfortable compared to yesterday HENT: Mouth/Throat: Mouth: Mucous membranes are dry. Eyes: Extraocular Movements: Extraocular movements intact. Conjunctiva/sclera: Conjunctivae normal. Pupils: Pupils are equal, round, and reactive to light. Cardiovascular: Rate and Rhythm: Normal rate and regular rhythm. Pulmonary: Effort: Pulmonary effort is normal. No respiratory distress. Breath sounds: Normal breath sounds. Abdominal: General: Bowel sounds are normal. There is no distension. Palpations: Abdomen is soft. Tenderness: There is no abdominal tenderness. Musculoskeletal: Right lower leg: No edema. Left lower leg: No edema. Skin: General: Skin is warm and dry. Comments: Tunneled cath placed on left chest, does have TTP, no surrounding erythema or edema. Mediport placed on right chest, no surrounding erythema or edema Neurological: Mental Status: She is alert and oriented to person, place, and time. Sensory: No sensory deficit. Motor: No weakness. [facility] Labs within last 24 hours Auto WBC Date Value Ref Range Status 07/31/2022 10.0 3.6 - 10.7 10*3/uL Final Hemoglobin Date Value Ref Range Status 07/31/2022 13.0 11.7 - 16.0 g/dL Final 07/30/2022 13.6 11.7 - 16.0 g/dL Final 07/30/2022 13.0 11.7 - 16.0 g/dL Final Hematocrit Date Value Ref Range Status 07/31/2022 38.9 35.0 - 47.0 % Final Platelets Date Value Ref Range Status 07/31/2022 202 140 - 440 10*3/uL Final MCV Date Value Ref Range Status 07/31/2022 84.5 80.0 - 98.0 fL Final SODIUM Date Value Ref Range Status 07/31/2022 139 135 - 145 mmol/L Final POTASSIUM Date Value Ref Range Status 07/31/2022 3.3 (L) 3.5 - 5.1 mmol/L Final CHLORIDE Date Value Ref Range Status 07/31/2022 109 (H) 98 - 107 mmol/L Final CARBON DIOXIDE Date Value Ref Range Status 07/31/2022 22 22 - 30 mmol/L Final UREA NITROGEN Date Value Ref Range Status 07/31/2022 8 7 - 17 mg/dL Final CREATININE Date Value Ref Range Status 07/31/2022 0.67 0.52 - 1.04 mg/dL Final 07/30/2022 0.62 0.52 - 1.04 mg/dL Final GLUCOSE Date Value Ref Range Status 07/31/2022 94 70 - 100 mg/dL Final CALCIUM Date Value Ref Range Status 07/31/2022 8.6 8.4 - 10.4 mg/dL Final MAGNESIUM Date Value Ref Range Status 07/30/2022 1.9 1.6 - 2.3 mg/dL Final AST (SGOT) Date Value Ref Range Status 07/31/2022 17 15 - 46 U/L Final ALT Date Value Ref Range Status 07/31/2022 8 0 - 34 U/L Final TOTAL PROTEIN Date Value Ref Range Status 07/31/2022 5.9 (L) 6.3 - 8.2 g/dL Final BILIRUBIN, TOTAL Date Value Ref Range Status 07/31/2022 0.7 0.2 - 1.3 mg/dL Final ALKALINE PHOSPHATASE Date Value Ref Range Status 07/31/2022 43 38 - 126 U/L Final No results found for: CKTOTAL, CKMB, TROPONINI No results fo (more content not included)...[facility]03-31-2023 Emergency department Note* Rupal Garcia RN - 07/31/2022 9:00 AM EDT Patient laying in bed resting comfortably, respirations even and unlabored. No sx of distress noted. Pt medicated per order. Pt and family deny any needs at this time. No new orders. Rupal Garcia RN 07/31/22 [facility]23 [id number]* Sissy Weeks RN - 07/31/2022 8:59 AM EDT Admitting at bedside. Sissy Weeks RN 07/31/22 0859 [id number] Emergency department Note* Rupal Garcia RN - 07/31/2022 7:55 AM EDT Introduced self to pt. Pt is laying in bed resting comfortably, respirations even and unlabored. Nosx of distress noted at this time. Patient denies any needs. No new orders at this moment. Rupal Garcia RN 07/31/22 0801 [id number] Emergency department Note* Rupal Garcia RN - 07/31/2022 7:36 AM EDT Report received from [facility] RN. Rupal Garcia RN 07/31/22 0736 [id number] Emergency department Note* Micki Michael RN - 07/31/2022 7:19 AM EDT Patient provided with breakfast menu. Family at bedside. Family provided with coffee. Patients ice pack was refilled. Patient has no further needs at this time. Micki Michael RN 07/31/22 0721 [id number] Emergency department Note* Leslie Casillas RN - 07/30/2022 8:32 PM EDT Called pharmacy requesting patients 6 o'clock medications. Spoke to Cory. He said he will send them. Leslie Casillas RN 07/30/222038 [id number] Emergency department Note* Maria L Hightower RN - 07/30/2022 7:49 PM EDT Patient up to [facility] for large BM, family at bedside. Maria L Hightower RN 07/30/221948 [id number] Emergency department Note* Leslie Casillas RN - 07/30/2022 6:54 PM EDT Patient back from having infusions. Leslie Casillas RN 07/30/22 3681 [facility] [id number] NoteInternal Medicine: Med Team Initial History and Physical Doug Flanagan : 1990(31 y.o.) Date: July 30, 2022 TEAM: D Attending: Dr. Zhao Subjective: Chief Complaint: Myasthenic Crisis Fatigue Associated symptoms include chest pain (around recent tunneled line placement on left side), chills, fatigue, headaches, nausea, vomiting and weakness (generalized). Pertinent negatives include no abdominal pain, fever or numbness. Chest Pain Associated symptoms include back pain, dizziness, headaches, nausea, shortness of breath (diffuclty taking decent breath), vomiting and weakness (generalized). Pertinent negatives include no abdominal pain, fever or numbness. Doug Flanagan is a 31 y.o. female with PMH myasthenia gravis, history of seizure (follows with Dr. Gerald Gilmore for her MG and seizures), depression that presented to [facility] on 07/30/2022 from dialysis center for admission for plasmapheresis,. Patient has a history of Myasthenia gravis, was diagnosed in 2018, and follows outpatient with Dr. Gilmore neurology. Patient has been on several different medications, was started on ultomiris infusions every 8 weeks 2 years ago. Patient's last infusion was in May 2022. Patient was supposed to have her next infusion 07/21/22 however insurance denied it. Since then, patient has had worsening symptoms concerning for myasthenic gravis crisis. She has headache, blurry vision, double vision, weakness, trouble breathing, abdominal pain, nausea, generalized weakness for the past 10 days. Her neurologist recommended she gets a tunneled cath placed today and set up with dialysis center for plasmapheresis. Patient went to the dialysis center who told her they could not do outpatient plasmapheresis and she would have to be admitted prompting her to be transferred to ED. Patient also has a history of seizures; was well controlled on Zonegran, Lamictal, Trileptal until several days ago when she had a seizure during her sleep. Patient reportedly woke up feeling post ictal and confused prompting her to think she had a seizure. Denied any urinary or bowel incontinence, tongue biting. Prior to that, patient only had breakthrough seizure about every 8 months. Patient did have a tunneled cath placed in her left chest earlier today and states that she is having pain around the site. Patient also has a mediport in her right chest that she has for her infusions. Patient has history of a clot in her mediport and now takes Eliquis daily to prevent this. Has no other history of clots in her extremities. Last took eliquis several days ago as she was told to hold it for procedure today. In the ED, BP 114/80, HR 90-110, Resp 18, SpO2 96%. Labs with HCO3 21, WBC 10.8. CXR unremarkable. Patient was actively vomiting while we were in the room with her. She was seen this morning with the med team on rounds. Med hx includes myasthenia gravis diagnosed in 2018, epilepsy, TBI, hx of thymectomy, LLOYD 2, migraines. Now presents with progressive symptoms including inability to lift arms and comb her hair, heaviness of breathing, generalized weakness following missing her last dose of Ultomiris because her insurance denied it even though she's been stable on this treatment for two year. TDC was placed yesterday and she received her first plasmapheresis treatment - already feeling some improvement. Additionally, she suspects she had a seizure while sleeping two weeks ago when she awoke feeling postictal. Typially her seizures are GTC. She denies missed doses of her AEDs. Review of Systems Constitutional: Positive for appetite change, chills and fatigue. Negative for fever. Eyes: Positive for visual disturbance (double vision). Respiratory: Positive for shortness of breath (diffuclty taking decent breath). Cardiovascular: Positive for chest pain (around recent tunneled line placement on left side). Gastrointestinal: Positive for nausea and vomiting. Negative for abdominal pain, constipation and diarrhea. Genitourinary: Negative for difficulty urinating. Musculoskeletal: Positive for back pain. Skin: Negative for color change. Neurological: Positive for dizziness, weakness (generalized) and headaches. Negative for light-headedness and numbness. Psychiatric/Behavioral: Positive for sleep disturbance. Past Medical History: Diagnosis Date E. coli colitis 2011 Epilepsy (HCC) Myasthenia gravis (HCC) Past Surgical History: Procedure Laterality Date APPENDECTOMY 2006 HIP ARTHROSCOPY (HISTORICAL) Right 2013 OTHER SURGICAL HISTORY Right 07/22/2018 THORACIS RESECTION, THYMIC TISSUE, ANT MEDIASTINAL THYMECTOMY Family History Problem Relation Name Age of Onset Cancer Maternal Grandmother Heart disease Maternal Grandfather Multiple sclerosis Sister Social History Tobacco Use Smoking Status Never Smokeless Tobacco Never Social History Substance and Sexual Act (more content not included)...[facility] 07-30-2022 History and physical note* Ward Zhao, DO - 07/30/2022 4:37 PM EDT Internal Medicine: Med Team Initial History and Physical Doug Flanagan : 1990(31 y.o.) Date: July 30, 2022 TEAM: D Attending: Dr. Zhao Subjective: Chief Complaint: Myasthenic Crisis Fatigue Associated symptoms include chest pain (around recent tunneled line placement on left side), chills, fatigue, headaches, nausea, vomiting and weakness (generalized). Pertinent negatives include no abdominal pain, fever or numbness. Chest Pain Associated symptoms include back pain, dizziness, headaches, nausea, shortness of breath (diffucltytaking decent breath), vomiting and weakness (generalized). Pertinent negatives include no abdominal pain, fever or numbness. Doug Flanagan is a 31 y.o. female with PMH myasthenia gravis, history of seizure (follows with Dr.Norman Gilmore for her MG and seizures), depression that presented to [facility] on 07/30/2022 from dialysis center for admission for plasmapheresis,. Patient has a history of Myasthenia gravis, was diagnosed in 2018, and follows outpatient with Dr. Gilmore neurology. Patient has been on several different medications, was started on ultomiris infusions every 8 weeks 2 years ago. Patient's last infusion was in May 2022. Patient was supposed to have her next infusion 07/21/22 however insurance denied it. Since then, patient has had worsening symptoms concerning for myasthenic gravis crisis. She has headache, blurry vision, double vision, weakness, trouble breathing, abdominal pain, nausea, generalized weakness for the past 10 days. Her neurologist recommended she gets a tunneled cath placed today and set up with dialysis center for plasm apheresis. Patient went to the dialysis center who told her they could not do outpatient plasmapheresis and she would have to be admitted prompting her to be transferred to ED. Patient also has a history of seizures; was well controlled on Zonegran, Lamictal, Trileptal until several days ago when she had a seizure during her sleep. Patient reportedly woke up feeling post ictal and confused prompting her to think she had a seizure. Denied any urinary or bowel incontinence, tongue biting. Priorto that, patient only had breakthrough seizure about every 8 months. Patient did have a tunneled cath placed in her left chest earlier today and states that she is having pain around the site. Patient also has a mediport in her right chest that she has for her infusions. Patient has history of a clot in her mediport and now takes Eliquis daily to prevent this. Has no other history of clots in her extremities. Last took eliquis several days ago as she was told to hold it for procedure today. In the ED, BP 114/80, HR 90-110, Resp 18, SpO2 96%. Labs with HCO3 21, WBC 10.8. CXR unremarkable. Patient was actively vomiting while we were in the room with her. She was seen this morning with the med team on rounds. Med hx includes myasthenia gravis diagnosed in 2018, epilepsy, TBI, hx of thymectomy, LLOYD 2, migraines. Now presents with progressive symptoms including inability to lift arms and comb her hair, heaviness of breathing, generalized weakness following missing her last dose of Ultomiris because her insurance denied it even though she's been stable on this treatment for two year. TDC was placed yesterday and she received her first plasmapheresis treatment - already feeling some improvement. Additionally, she suspects she had a seizure while sleeping two weeks ago when she awoke feeling postictal. Typially her seizures are GTC. She denies missed doses of her AEDs. Review of Systems Constitutional: Positive for appetite change, chills and fatigue. Negative for fever. Eyes: Positive for visual disturbance (double vision). Respiratory: Positive for shortness of breath (diffuclty taking decent breath). Cardiovascular: Positive for chest pain (around recent tunneled line placement on left side). Gastrointestinal: Positive for nausea and vomiting. Negative for abdominal pain, constipation and diarrhea. Genitourinary: Negative for difficulty urinating. Musculoskeletal: Positive for back pain. Skin: Negative for color change. Neurological: Positive for dizziness, weakness (generalized) and headaches. Negative for light-headedness and numbness. Psychiatric/Behavioral: Positive for sleep disturbance. Past Medical History: Diagnosis Date E. coli colitis 2010 Epilepsy (HCC) Myasthenia gravis (HCC) Past Surgical History: Procedure Laterality Date APPENDECTOMY 2006 HIP ARTHROSCOPY (HISTORICAL) Right 2013 OTHER SURGICAL HISTORY Right 07/22/2018 THORACIS RESECTION, THYMIC TISSUE, ANT MEDIASTINAL THYMECTOMY Family History Problem Relation Name Age of Onset Cancer Maternal Grandmother Heart disease Maternal Grandfather Multiple sclerosis Sister Social History Tobacco Use Smoking Status Never Smokeless Tobacco Never Social History Substance and Sexual Activity Alcohol Use No Social History Substance and Sexual Activity Drug Use No Allergies Allergen Reactions Dilantin [Phenytoin] Other Suicidal Keppra [Levetiracetam] Other Suicidal Pcn [Penicillins] Hives Shellfish-Derived Products Other Seizures Other Anxiety Compazine Prior to Admission medications Medication Sig Start Date End Date Taking? Authorizing Provider acetaminophen (Tylenol) 325 MG tablet Take 650 mg by mouth every 6 hours as needed. Historical Provider, apixaban (Eliquis) 5 MG tablet Take 5 mg by mouth in the morning and 5 mg in the evening. Historical Provider, diazePAM (Valium) 10 MG tablet Take 10 mg by mouth every 8 hours as needed (this is a nasal spray not tablet, Valtoco). Historical Provider, diazePAM (Valtoco 10 MG Dose) 10 MG/0.1ML liquid as directed. 02/18/21 Historical ProviderMD escitalopram (Lexapro) 10 MG tablet Take 10 mg by mouth daily. Historical Provider, lamoTRIgine (LaMICtal) 100 MG tablet Take 100 mg by mouth. Historical Provider, lamoTRIgine (LaMICtal) 200 MG tablet Take 250 mg by mouth. Historical Provider, levonorgestrel (Mirena) 20 MCG/DAY IUD 1 each by IntraUTERine route. Historical ProviderMD LORazepam (Ativan) 1 MG tablet Take by mouth. Historical Provider, OXcarbazepine (Trileptal) 150 MG tablet Take 150 mg by mouth. Historical Provider, MD rameyulizumab-cwvz (Ultomiris) 1100 MG/11ML injection Infuse 1,100 mL into a venous catheter every 8 (eight) weeks. 02/05/22 Historical Provider, MD rameyulizumab-cwvz (Ultomiris) 300 MG/3ML injection as directed Intravenous Historical Provider, zonisamide (Zonegran) 100 MG capsule Take 300 mg by mouth daily. Historical Provider, zonisamide (Zonegran) 100 MG capsule Take 200 mg by mouth daily. Historical Provider, Objective: Vitals: 07/30/22 1248 07/30/22 1522 07/30/22 1632 BP: 114/80 100/68 95/56 BP Location: Left arm Left arm Patient Position: Sitting Lying Pulse: (!) 112 88 90 Resp: 18 16 15 Temp: 36.8 C (98.3 F) TempSrc: Oral SpO2: 96% 97% 97% Weight: 170 lb (77.1 kg) Height: 5' 2 (1.575 m) Physical Exam Constitutional: General: She is in acute distress. Appearance: Normal appearance. She is not ill-appearing. Comments: Sitting on edge of bed, appears very uncomfortable HENT: Head: Normocephalic and atraumatic. Nose: Nose normal. Mouth/Throat: Mouth: Mucous membranes are dry. Eyes: Extraocular Movements: Extraocular movements intact. Conjunctiva/sclera: Conjunctivae normal. Pupils: Pupils are equal, round, and reactive to light. Cardiovascular: Rate and Rhythm: Normal rate and regular rhythm. Pulmonary: Effort: Pulmonary effort is normal. No respiratory distress. Breath sounds: Normal breath sounds. Chest: Comments: Tunneled cath placed on left chest, does have TTP, no surrounding erythema or edema. Mediport placed on right chest, no surrounding erythema or edema Abdominal: General: Bowel sounds are normal. There is no distension. Palpations: Abdomen is soft. Tenderness: There is no abdominal tenderness. Musculoskeletal: General: Normal range of motion. Cervical back: Normal range of motion. Right lower leg: No edema. Left lower leg: No edema. Skin: General: Skin is warm and dry. Neurological: Mental Status: She is alert and oriented to person, place, and time. Mental status is at baseline. Sensory: No sensory deficit. Motor: No weakness. [facility] Labs within last 24 hours Auto WBC Date Value Ref Range Status 07/30/2022 10.8 (H) 3.6 - 10.7 10*3/uL Final Hemoglobin Date Value Ref Range Status 07/30/2022 13.6 11.7 - 16.0 g/dL Final 07/30/2022 13.0 11.7 - 16.0 g/dL Final Hematocrit Date Value Ref Range Status 07/30/2022 42.1 35.0 - 47.0 % Final Platelets Date Value Ref Range Status 07/30/2022 243 140 - 440 10*3/uL Final MCV Date Value Ref Range Status 07/30/2022 85.6 80.0 - 98.0 fL Final SODIUM Date Value Ref Range Status 07/30/2022 139 135 - 145 mmol/L Final POTASSIUM Date Value Ref Range Status 07/30/2022 3.5 3.5 - 5.1 mmol/L Final CHLORIDE Date Value Ref Range Status 07/30/2022 108 (H) 98 - 107 mmol/L Final CARBON DIOXIDE Date Value Ref Range Status 07/30/2022 21 (L) 22 - 30 mmol/L Final UREA NITROGEN Date Value Ref Range Status 07/30/2022 10 7 - 17 mg/dL Final CREATININE Date Value Ref Range Status 07/30/2022 0.62 0.52 - 1.04 mg/dL Final GLUCOSE Date Value Ref Range Status 07/30/2022 94 70 - 100 mg/dL Final CALCIUM Date Value Ref Range Status 07/30/2022 9.2 8.4 - 10.4 mg/dL Final MAGNESIUM Date Value Ref Range Status 07/30/2022 1.9 1.6 - 2.3 mg/dL Final No results found for: AST, ALT, PROT, BILITOT, ALKPHOS, INR, APTT, LIPASE No results found for: CKTOTAL, CKMB, TROPONINI No results found for: PROCAL, CHOL, TRIG, HDL, TSH, VITD25, HGBA1C, VANCOTROUGH Assessment and Plan: Principal Problem: Myasthenic crisis (CMS/HCC) (HCC) Myasthenic Crisis -Follows with Dr. Gilmore neurology outpatient for MG, was on every 8 week infusions of Ultomiris until insurance rejected recent dose -Tunneled cathter placed earlier today by IR -Plan for plasmapheresis today - nephrology placed orders -Patient will need 5 treatments, one every other day per nephrology unless neuro recommends otherwise -Neurology consulted -Symptomatic control with PRN anti-emetics, NSAIDs, tylenol Agree. Already some improvement after one session of plasmapheresis. Monitor NIF. Night team aware of need for ICU eval if concern for decreasing respiratory reserve. Breakthrough seizure History of seizures -Follows with Dr. Gilmore for this as well; was previously well controlled on her anti-epileptics until several days ago when she woke up in post-ictal state -Neurology consulted -Seizure precautions -Continue home AED - Zonegran, Lamictal, Trileptal Neurology following. Will check AED levels. Depression, anxiety -Takes PRN Valium and Ativan but does not take daily, last doses over several days ago, will hold off for now but if needed will add in PRN ativan -Continue home lexapro Mediport placed, on chronic anticoagulation -Patient has right mediport placed in which she gets her infusions through; had history of clot in her port in which she is now on eliquis for. No history of clots in extremities -Will resume eliquis tomorrow Eliquis has been resumed. - Goals of Care: FULL CODE - DVT Prophylaxis: Eliquis - GI Prophylaxis: Not Indicated - Diet: General - BMI Classification: Body mass index is 31.09 kg/m . Obesity (BMI >30) - Disposition: Admit to F. - Given the signs and symptoms associated with her primary diagnosis in the setting of her comorbidconditions, she is expected to require >48 hrs of hospital care (i.e. inpatient level care). I have discussed the care of Doug Flanagan with the medical student and resident. I have personally taken a history, examined the patient, and performed the associated medical decision making activities. I have reviewed & verified the attested documentation. Unless otherwise noted below, this documentation reflects the history, physical exam, and medical decision making that I performed myself. Please see below for my personal highlights or additions to the note. Attending comments are in green. 75 minutes spent on the above care. [id number] History and physical note* Ward Zhao DO - 07/30/2022 4:37 PM EDT Internal Medicine: Med Team Initial History and Physical Doug Flanagan : 1990(31 y.o.) Date: July 30, 2022 TEAM: D Attending: Dr. Zhao Subjective: Chief Complaint: Myasthenic Crisis Fatigue Associated symptoms include chest pain (around recent tunneled line placement on left side), chills, fatigue, headaches, nausea, vomiting and weakness (generalized). Pertinent negatives include no abdominal pain, fever or numbness. Chest Pain Associated symptoms include back pain, dizziness, headaches, nausea, shortness of breath (diffucltytaking decent breath), vomiting and weakness (generalized). Pertinent negatives include no abdominal pain, fever or numbness. Doug Flanagan is a 31 y.o. female with PMH myasthenia gravis, history of seizure (follows with Dr.Norman Gilmore for her MG and seizures), depression that presented to [facility] on 07/30/2022 from dialysis center for admission for plasmapheresis,. Patient has a history of Myasthenia gravis, was diagnosed in 2018, and follows outpatient with Dr. Gilmore neurology. Patient has been on several different medications, was started on ultomiris infusions every 8 weeks 2 years ago. Patient's last infusion was in May 2022. Patient was supposed to have her next infusion 07/21/22 however insurance denied it. Since then, patient has had worsening symptoms concerning for myasthenic gravis crisis. She has headache, blurry vision, double vision, weakness, trouble breathing, abdominal pain, nausea, generalized weakness for the past 10 days. Her neurologist recommended she gets a tunneled cath placed today and set up with dialysis center for plasm apheresis. Patient went to the dialysis center who told her they could not do outpatient plasmapheresis and she would have to be admitted prompting her to be transferred to ED. Patient also has a history of seizures; was well controlled on Zonegran, Lamictal, Trileptal until several days ago when she had a seizure during her sleep. Patient reportedly woke up feeling post ictal and confused prompting her to think she had a seizure. Denied any urinary or bowel incontinence, tongue biting. Priorto that, patient only had breakthrough seizure about every 8 months. Patient did have a tunneled cath placed in her left chest earlier today and states that she is having pain around the site. Patient also has a mediport in her right chest that she has for her infusions. Patient has history of a clot in her mediport and now takes Eliquis daily to prevent this. Has no other history of clots in her extremities. Last took eliquis several days ago as she was told to hold it for procedure today. In the ED, BP 114/80, HR 90-110, Resp 18, SpO2 96%. Labs with HCO3 21, WBC 10.8. CXR unremarkable. Patient was actively vomiting while we were in the room with her. She was seen this morning with the med team on rounds. Med hx includes myasthenia gravis diagnosed in 2018, epilepsy, TBI, hx of thymectomy, LLOYD 2, migraines. Now presents with progressive symptoms including inability to lift arms and comb her hair, heaviness of breathing, generalized weakness following missing her last dose of Ultomiris because her insurance denied it even though she's been stable on this treatment for two year. TDC was placed yesterday and she received her first plasmapheresis treatment - already feeling some improvement. Additionally, she suspects she had a seizure while sleeping two weeks ago when she awoke feeling postictal. Typially her seizures are GTC. She denies missed doses of her AEDs. Review of Systems Constitutional: Positive for appetite change, chills and fatigue. Negative for fever. Eyes: Positive for visual disturbance (double vision). Respiratory: Positive for shortness of breath (diffuclty taking decent breath). Cardiovascular: Positive for chest pain (around recent tunneled line placement on left side). Gastrointestinal: Positive for nausea and vomiting. Negative for abdominal pain, constipation and diarrhea. Genitourinary: Negative for difficulty urinating. Musculoskeletal: Positive for back pain. Skin: Negative for color change. Neurological: Positive for dizziness, weakness (generalized) and headaches. Negative for light-headedness and numbness. Psychiatric/Behavioral: Positive for sleep disturbance. Past Medical History: Diagnosis Date E. coli colitis 2010 Epilepsy (HCC) Myasthenia gravis (HCC) Past Surgical History: Procedure Laterality Date APPENDECTOMY 2006 HIP ARTHROSCOPY (HISTORICAL) Right 2013 OTHER SURGICAL HISTORY Right 07/22/2018 THORACIS RESECTION, THYMIC TISSUE, ANT MEDIASTINAL THYMECTOMY Family History Problem Relation Name Age of Onset Cancer Maternal Grandmother Heart disease Maternal Grandfather Multiple sclerosis Sister Social History Tobacco Use Smoking Status Never Smokeless Tobacco Never Social History Substance and Sexual Activity Alcohol Use No Social History Substance and Sexual Activity Drug Use No Allergies Allergen Reactions Dilantin [Phenytoin] Other Suicidal Keppra [Levetiracetam] Other Suicidal Pcn [Penicillins] Hives Shellfish-Derived Products Other Seizures Other Anxiety Compazine Prior to Admission medications Medication Sig Start Date End Date Taking? Authorizing Provider acetaminophen (Tylenol) 325 MG tablet Take 650 mg by mouth every 6 hours as needed. Historical Provider, apixaban (Eliquis) 5 MG tablet Take 5 mg by mouth in the morning and 5 mg in the evening. Historical Provider, diazePAM (Valium) 10 MG tablet Take 10 mg by mouth every 8 hours as needed (this is a nasal spray not tablet, Valtoco). Historical Provider, diazePAM (Valtoco 10 MG Dose) 10 MG/0.1ML liquid as directed. 02/18/21 Historical Provider, escitalopram (Lexapro) 10 MG tablet Take 10 mg by mouth daily. Historical Provider, lamoTRIgine (LaMICtal) 100 MG tablet Take 100 mg by mouth. Historical Provider, lamoTRIgine (LaMICtal) 200 MG tablet Take 250 mg by mouth. Historical Provider, levonorgestrel (Mirena) 20 MCG/DAY IUD 1 each by IntraUTERine route. Historical Provider, LORazepam (Ativan) 1 MG tablet Take by mouth. Historical Provider, OXcarbazepine (Trileptal) 150 MG tablet Take 150 mg by mouth. Historical Provider, ravulizumab-cwvz (Ultomiris) 1100 MG/11ML injection Infuse 1,100 mL into a venous catheter every 8 (eight) weeks. 02/05/22 Historical ProviderMD ravulizumab-cwvz (Ultomiris) 300 MG/3ML injection as directed Intravenous Historical Provider, zonisamide (Zonegran) 100 MG capsule Take 300 mg by mouth daily. Historical Provider, zonisamide (Zonegran) 100 MG capsule Take 200 mg by mouth daily. Historical Provider, Objective: Vitals: 07/30/22 1248 07/30/22 1522 07/30/22 1632 BP: 114/80 100/68 95/56 BP Location: Left arm Left arm Patient Position: Sitting Lying Pulse: (!) 112 88 90 Resp: 18 16 15 Temp: 36.8 C (98.3 F) TempSrc: Oral SpO2: 96% 97% 97% Weight: 170 lb (77.1 kg) Height: 5' 2 (1.575 m) Physical Exam Constitutional: General: She is in acute distress. Appearance: Normal appearance. She is not ill-appearing. Comments: Sitting on edge of bed, appears very uncomfortable HENT: Head: Normocephalic and atraumatic. Nose: Nose normal. Mouth/Throat: Mouth: Mucous membranes are dry. Eyes: Extraocular Movements: Extraocular movements intact. Conjunctiva/sclera: Conjunctivae normal. Pupils: Pupils are equal, round, and reactive to light. Cardiovascular: Rate and Rhythm: Normal rate and regular rhythm. Pulmonary: Effort: Pulmonary effort is normal. No respiratory distress. Breath sounds: Normal breath sounds. Chest: Comments: Tunneled cath placed on left chest, does have TTP, no surrounding erythema or edema. Mediport placed on right chest, no surrounding erythema or edema Abdominal: General: Bowel sounds are normal. There is no distension. Palpations: Abdomen is soft. Tenderness: There is no abdominal tenderness. Musculoskeletal: General: Normal range of motion. Cervical back: Normal range of motion. Right lower leg: No edema. Left lower leg: No edema. Skin: General: Skin is warm and dry. Neurological: Mental Status: She is alert and oriented to person, place, and time. Mental status is at baseline. Sensory: No sensory deficit. Motor: No weakness. [facility] within last 24 hours Auto WBC Date Value Ref Range Status 07/30/2022 10.8 (H) 3.6 - 10.7 10*3/uL Final Hemoglobin Date Value Ref Range Status 07/30/2022 13.6 11.7 - 16.0 g/dL Final 07/30/2022 13.0 11.7 - 16.0 g/dL Final Hematocrit Date Value Ref Range Status 07/30/2022 42.1 35.0 - 47.0 % Final Platelets Date Value Ref Range Status 07/30/2022 243 140 - 440 10*3/uL Final MCV Date Value Ref Range Status 07/30/2022 85.6 80.0 - 98.0 fL Final SODIUM Date Value Ref Range Status 07/30/2022 139 135 - 145 mmol/L Final POTASSIUM Date Value Ref Range Status 07/30/2022 3.5 3.5 - 5.1 mmol/L Final CHLORIDE Date Value Ref Range Status 07/30/2022 108 (H) 98 - 107 mmol/L Final CARBON DIOXIDE Date Value Ref Range Status 07/30/2022 21 (L) 22 - 30 mmol/L Final UREA NITROGEN Date Value Ref Range Status 07/30/2022 10 7 - 17 mg/dL Final CREATININE Date Value Ref Range Status 07/30/2022 0.62 0.52 - 1.04 mg/dL Final GLUCOSE Date Value Ref Range Status 07/30/2022 94 70 - 100 mg/dL Final CALCIUM Date Value Ref Range Status 07/30/2022 9.2 8.4 - 10.4 mg/dL Final MAGNESIUM Date Value Ref Range Status 07/30/2022 1.9 1.6 - 2.3 mg/dL Final No results found for: AST, ALT, PROT, BILITOT, ALKPHOS, INR, APTT, LIPASE No results found for: CKTOTAL, CKMB, TROPONINI No results found for: PROCAL, CHOL, TRIG, HDL, TSH, VITD25, HGBA1C, VANCOTROUGH Assessment and Plan: Principal Problem: Myasthenic crisis (CMS/[facility]) ([facility]) Myasthenic Crisis -Follows with Dr. Gilmore neurology outpatient for MG, was on every 8 week infusions of Ultomiris until insurance rejected recent dose -Tunneled cathter placed earlier today by IR -Plan for plasmapheresis today - nephrology placed orders -Patient will need 5 treatments, one every other day per nephrology unless neuro recommends otherwise -Neurology consulted -Symptomatic control with PRN anti-emetics, NSAIDs, tylenol Agree. Already some improvement after one session of plasmapheresis. Monitor NIF. Night team aware of need for ICU eval if concern for decreasing respiratory reserve. Breakthrough seizure History of seizures -Follows with Dr. Gilmore for this as well; was previously well controlled on her anti-epileptics until several days ago when she woke up in post-ictal state -Neurology consulted -Seizure precautions -Continue home AED - Zonegran, Lamictal, Trileptal Neurology following. Will check AED levels. Depression, anxiety -Takes PRN Valium and Ativan but does not take daily, last doses over several days ago, will hold off for now but if needed will add in PRN ativan -Continue home lexapro Mediport placed, on chronic anticoagulation -Patient has right mediport placed in which she gets her infusions through; had history of clot in her port in which she is now on eliquis for. No history of clots in extremities -Will resume eliquis tomorrow Eliquis has been resumed. - Goals of Care: FULL CODE - DVT Prophylaxis: Eliquis - GI Prophylaxis: Not Indicated - Diet: General - BMI Classification: Body mass index is 31.09 kg/m . Obesity (BMI >30) - Disposition: Admit to F. - Given the signs and symptoms associated with her primary diagnosis in the setting of her comorbidconditions, she is expected to require >48 hrs of hospital care (i.e. inpatient level care). I have discussed the care of Doug Flanagan with the medical student and resident. I have personally taken a history, examined the patient, and performed the associated medical decision making activities. I have reviewed & verified the attested documentation. Unless otherwise noted below, this documentation reflects the history, physical exam, and medical decision making that I performed myself. Please see below for my personal highlights or additions to the note. Attending comments are in green. 75 minutes spent on the above care. documented in this [facility]03-30-2023 Emergency department Note* Leslei Casillas RN - 07/30/2022 4:34 PM EDT Patient had episode of emesis. Order for zofran in [facility]. Patient has IV port I was going to access before going for infusion. After gathering supplies At bedside. Transport arrived shortly after to take patient for infusion. Gave patient ODT zofran and patient transported to dialysis. Leslie Casillas RN 07/30/22 [id number] Emergency department Note* Cielo Recinos RN - 07/30/2022 12:40 PM EDT Bed: 26 Expected date: Expected time: Means of arrival: Comments: triage Cielo Recinos RN 07/30/22 [id number] Physician Emergency department Note* Edwige Bob PA-C - 07/30/2022 12:40 PM EDT Emergency Department Encounter [facility] EMERGENCY DEPT Patient: Doug Flanagan : 1990 Date of Evaluation: 07/30/2022 ED Provider: Edwige Bob PA-C I saw the patient as the Clinician in Triage and performed a brief history and physical exam, established acuity, and ordered appropriate tests to develop basic plan of care. I wore appropriate PPE for the entirety of this encounter. Brief HPI: In brief, Doug Flanagan is a 31 y.o. female that presents for concern of myasthenia gravis crisis. Patient says that she has been in touch with her neurologist to arrange for a port to beplaced for her so she could receive plasmapheresis. Patient says that she attempted to get this done outpatient but she was told that she needs to be admitted to the hospital in order to receive the plasmapheresis treatment. Patient says that she feels like she has had generalized fatigue, weakness, and shortness of breath getting progressively worse over the last several days. No recent fever, chills, abdominal pain, nausea, vomiting. Focused Physical exam: Alert, oriented, no acute distress. Vital signs markable for elevated heart rate. Cardiac auscultation with elevated rate, regular rhythm. Lungs clear to auscultation bilaterally. Plan/MDM: We will obtain labs, imaging, and anticipate admission for further treatment. Patients symptoms are consistent with sepsis, severe sepsis, or septic shock (If yes use .sepsiscoremeasure): No Please see subsequent provider note for further details and disposition (Comment: Please note this report has been produced using speech recognition software and may contain errors related to that system including errors in grammar, punctuation, and spelling as well as words and phrases that may be inappropriate. If there are any questions or concerns please feel free to contact the dictating provider for clarification) Edwige Bob PA-C [employer] Edwige Bob PA-C 07/30/22 1443 [place] Phone: 1(248) 807-752803-30-2023 Physician Emergency department Note* Regina Walls MD - 07/30/2022 12:40 PM EDT EMERGENCY DEPARTMENT ENCOUNTER Pt Name: Doug Flanagan Birthdate 1990 Date of evaluation: 07/30/2022 ED Provider: Regina Walls MD CHIEF COMPLAINT Chief Complaint Patient presents with Fatigue Chest Pain Pt has hx of Myasthenia Gravis. Pt was here today for a port placement and to receive plasmapheresis. Pt is awake and alert, came here because she is feeling CP and headache, SOB. States she is having a flare up. HISTORY OF PRESENT ILLNESS (Location/Symptom, Timing/Onset, Context/Setting, Quality, Duration, Modifying Factors, Severity) Note limiting factors. I wore appropriate PPE for the entirety of this encounter. HPI Doug Flanagan is a 31 y.o. female who presents to the emergency department for plasmapheresis. History of myasthenia gravis and epilepsy. Has been unable to obtain her MG medication for the past 10 days because of issues with her insurance. Had port placed today and went to dialysis center but wastold they would not perform the plasmapheresis as an outpatient and she would need to be admitted. Complains of weakness, nausea, cough productive of white sputum which sometimes also has bright red blood, lower back pain, double vision, pain with breathing, intermittent diarrhea. States her weakness is now so that her mother is having to help her shower. Also has some mild pain around her accesssite and soreness in her lower chest which she describes as feeling like her diaphragm. States these symptoms all started since being off of her medication and have been progressively worsening. Experienced similar symptoms during the initial onset of her MG but states they were not this severe. Took her seizure medications today. Nursing Notes were reviewed. Limitations to history: None Outside historians: Parent REVIEW OF SYSTEMS Review of Systems Pertinent positives and negatives as per HPI. PAST MEDICAL HISTORY Past Medical History: Diagnosis Date E. coli colitis 2010 Epilepsy (HCC) Myasthenia gravis (HCC) SURGICAL HISTORY Past Surgical History: Procedure Laterality Date APPENDECTOMY 2006 HIP ARTHROSCOPY (HISTORICAL) Right 2013 OTHER SURGICAL HISTORY Right 07/22/2018 THORACIS RESECTION, THYMIC TISSUE, ANT MEDIASTINAL THYMECTOMY CURRENT MEDICATIONS Previous Medications ACETAMINOPHEN (TYLENOL) 325 MG TABLET Take 650 mg by mouth every 6 hours as needed. APIXABAN (ELIQUIS) 5 MG TABLET Take 5 mg by mouth in the morning and 5 mg in the evening. DIAZEPAM (VALIUM) 10 MG TABLET Take 10 mg by mouth every 8 hours as needed (this is a nasal spray not tablet, Valtoco). DIAZEPAM (VALTOCO 10 MG DOSE) 10 MG/0.1ML LIQUID as directed. ESCITALOPRAM (LEXAPRO) 10 MG TABLET Take 10 mg by mouth daily. LAMOTRIGINE (LAMICTAL) 100 MG TABLET Take 100 mg by mouth. LAMOTRIGINE (LAMICTAL) 200 MG TABLET Take 250 mg by mouth. LEVONORGESTREL (MIRENA) 20 MCG/DAY IUD 1 each by IntraUTERine route. LORAZEPAM (ATIVAN) 1 MG TABLET Take by mouth. OXCARBAZEPINE (TRILEPTAL) 150 MG TABLET Take 150 mg by mouth. RAVULIZUMAB-CWVZ (ULTOMIRIS) 1100 MG/11ML INJECTION Infuse 1,100 mL into a venous catheter every 8 (eight) weeks. RAVULIZUMAB-CWVZ (ULTOMIRIS) 300 MG/3ML INJECTION as directed Intravenous ZONISAMIDE (ZONEGRAN) 100 MG CAPSULE Take 300 mg by mouth daily. ZONISAMIDE (ZONEGRAN) 100 MG CAPSULE Take 200 mg by mouth daily. ALLERGIES Dilantin [phenytoin], Keppra [levetiracetam], Pcn [penicillins], Shellfish- derived products, and Other FAMILY HISTORY Family History Problem Relation Name Age of Onset Cancer Maternal Grandmother Heart disease Maternal Grandfather Multiple sclerosis Sister SOCIAL HISTORY Social History Socioeconomic History Marital status: Single Tobacco Use Smoking status: Never Smokeless tobacco: Never Substance and Sexual Activity Alcohol use: No Drug use: No Social Determinants of Health Intimate Partner Violence: Not At Risk Fear of Current or Ex-Partner: No Emotionally Abused: No Physically Abused: No Sexually Abused: No SCREENINGS PHYSICAL EXAM ED Triage Vitals [07/30/22 1248] Temp Heart Rate Resp BP 36.8 C (98.3 F) (!) 112 18 114/80 SpO2 Temp Source Heart Rate Source Patient Position 96 % Oral Monitor -- BP Location FiO2 (%) -- -- Physical Exam Vitals reviewed. Constitutional: Appearance: She is ill-appearing. She is not toxic-appearing or diaphoretic. Comments: Left chest catheter HENT: Mouth/Throat: Mouth: Mucous membranes are moist. Pharynx: Oropharynx is clear. Cardiovascular: Rate and Rhythm: Normal rate and regular rhythm. Heart sounds: Normal heart sounds. No murmur heard. No friction rub. No gallop. Pulmonary: Effort: Pulmonary effort is normal. No respiratory distress. Breath sounds: Normal breath sounds. No wheezing, rhonchi or rales. Abdominal: Palpations: Abdomen is soft. Musculoskeletal: Right lower leg: No edema. Left lower leg: No edema. Skin: General: Skin is warm and dry. Neurological: General: No focal deficit present. Mental Status: She is alert. Psychiatric: Mood and Affect: Mood normal. Behavior: Behavior normal. DIAGNOSTIC RESULTS RADIOLOGY (Per Emergency Physician): Interpretation per the Radiologist below, if available at the time of this note: XR chest 2 views Final Result No acute cardiopulmonary disease. Report Dictated on Electronically Signed By: Khurram Segura Electronically Signed Date/Time: 07/30/2022 4:11 PM EDT LABS: Labs Reviewed BASIC METABOLIC PANEL - Abnormal Result Value SODIUM 139 POTASSIUM 3.5 CHLORIDE 108 (*) CARBON DIOXIDE 21 (*) UREA NITROGEN 10 CREATININE 0.62 GLUCOSE 94 CALCIUM 9.2 ANION GAP 10 eGFR >90.0 CBC WITH AUTO DIFFERENTIAL - Abnormal Auto WBC 10.8 (*) RBC 4.92 Hemoglobin 13.6 Hematocrit 42.1 MCV 85.6 MCH 27.7 MCHC 32.4 RDW 14.2 Platelets 243 MPV 7.1 (*) nRBC 0.0 Neutrophils Relative 76.1 Lymphocytes Relative 15.5 (*) Monocytes Relative 6.7 Eosinophils Relative 1.2 Basophils Relative 0.5 Neutrophils Absolute 8.3 (*) Lymphocytes Absolute 1.7 Monocytes Absolute 0.7 Eosinophils Absolute 0.1 Basophils Absolute 0.1 MAGNESIUM - Normal MAGNESIUM 1.9 HCG QUANTITATIVE BLOOD HCG QUANTITATIVE <2 Narrative: Values in should double every 2 to 3 days for the first 6 weeks. Elevated concentrations of human chorionic gonadotropin (hCG) measured in the first trimester of are observed in normal , but may serve as an indication of chorionic carcinoma, hydatiform mole, or multiplepregnancy. Decreasing hCG concentrations indicate threatened or missed , recent terminationof , ectopic , gestosis or intrauterine . Regina- and postmenopausal females may have detectable hCG concentrations (< or = to 14 mIU/mL) due to pituitary production of hCG. Serum follicle-stimulating hormone measurement may aid in ruling-out in this population. Cutoffs of greater than 20 to 45 mIU/mL have been suggested and are method dependent. False-elevations(called phantom human chorionic gonadotropin: hCG) may occur with patients who have human antianimal or heterophilic antibodies. Some specimens may not dilute linearly due to abnormal forms of hCG. Elevated hCG concentrations not associated with are found in patients with other diseases such as tumors of the germ cells, ovaries, bladder, pancreas, stomach, lungs, and liver. This test isnot intended to detect or monitor tumors or gestational trophoblastic disease. All other labs were within normal range or not returned as of this dictation. EMERGENCY DEPARTMENT COURSE and DIFFERENTIAL DIAGNOSIS/MDM: Vitals: Vitals: 07/30/22 1248 07/30/22 1522 07/30/22 1632 BP: 114/80 100/68 95/56 BP Location: Left arm Left arm Patient Position: Sitting Lying Pulse: (!) 112 88 90 Resp: 18 16 15 Temp: 36.8 C (98.3 F) TempSrc: Oral SpO2: 96% 97% 97% Weight: 77.1 kg (170 lb) Height: 1.575 m (5' 2) The patient presented with a chief complaint of need for diaphoresis due to inability to obtain myasthenia gravis medication. Our workup consisted of ordering/reviewing CBC, BMP, Mg level, CXR, EKG. ED Course as of 08/07/221332 Taylor Jul 30, 2022 1525 Patient presents for plasmapheresis after having issues obtaining medication due to insurance.Had access placed today and was sent to dialysis center but they told her plasmapheresis was only available for inpatients. [VW] 1640 Zofran given for nausea. Patient admitted. [VW] ED Course User Index [VW] Regina Walls MD Diagnoses as of 08/07/221332 Myasthenic crisis (CMS/HCC) (HCC) Adjustment reaction with anxiety and depression ED Medications managed: Medications calcium gluconate 2000 mg in 100 mL IVPB premix (has no administration in time range) albumin human 5 % IV solution 2,000 mL (has no administration in time range) citrate dextrose (ACD-A) 0.73-2.45-2.2 GM/100ML infusion - Pyxis ADS Override Pull (has no administration in time range) ondansetron ODT (Zofran-ODT) disintegrating tablet 4 mg (4 mg Oral Given 07/30/22 163) Or ondansetron (Zofran) injection 4 mg ( IntraVENous See Alternative 07/30/22 163) PROCEDURES: Unless otherwise noted below, none FINAL IMPRESSION 1. Myasthenic crisis (CMS/HCC) (HCC) DISPOSITION Admit 07/30/2022 04:26:13 PM PATIENT REFERRED TO: No follow-up provider specified. DISCHARGE MEDICATIONS: New Prescriptions No medications on file (Comment: Please note this report has been produced using speech recognition software and may contain errors related to that system including errors in grammar, punctuation, and spelling, as well as words and phrases that may be inappropriate. If there are any questions or concerns please feel freeto contact the dictating provider for clarification.) Regina Walls MD (electronically signed) Emergency Medicine Provider Regina Walls MD Resident 07/30/221701 [place] Phone: [phone]) 900-625203-30-2023 Physician Emergency department Note* Rivka Cid DO - 07/30/2022 12:40 PM EDT Emergency Department Encounter [facility] EMERGENCY DEPT Patient: Doug Flanagan : 1990 Date of Evaluation: 07/30/2022 ED Supervising Physician: Rivka Cid DO I independently examined and evaluated Doug Flanagan. This will serve as my Supervisory note and shared attestation. I did perform a substantive portion of the visit including all aspects of the Medical Decision Making. I wore appropriate PPE for the entirety of this encounter. In brief, Doug Flanagan is a 31 y.o. female that presents to the emergency department for fatigue and chest pain. Patient does have some underlying myasthenia gravis. Patient had gone to an outpatient facility in which they were going to do plasmapheresis however they do not do plasmapheresis on an outpatient basis patient was sent to the emergency department. Focused exam: At this time is otherwise doing well Brief ED course/MDM: At this time does present for some chest pain fatigue. Differential does include myasthenia gravis crisis, ACS, pneumonia. Did have lab work consisting of a BMP which was relatively unremarkable, hCG quant was negative, CBC is negative Did have a chest x-ray which was only interpreted by myself was otherwise negative. Did have a EKG which was independently interpreted no STEMI noted unchanged from previous EKG in 2019. In the patient's need for the plasmapheresis we have elected to admit the patient to the hospital. Patient was agreeable and amenable and has been admitted MDM elements: The patient presented with chief complaint of chest pain and fatigue. The differential diagnosis associated with this patient's presentation includes CBC, CMP, hCG chestx-ray, EKG. Our workup consisted of ordering/reviewing: ACS, myasthenia gravis crisis, pneumonia. Patient is in agreement with this plan. All diagnostic, treatment, and disposition decisions were made by myself in conjunction with the Resident. I also supervised brennan portions of any procedures performed by the Resident. For all further details of the patient's emergency department visit, please see their documentation. (Comment: Please note this report has been produced using speech recognition software and may contain errors related to that system including errors in grammar, punctuation, and spelling, as well as words and phrases that may be inappropriate. If there are any questions or concerns please feel freeto contact the dictating provider for clarification.) Rivka Cid DO [employer] Rivka Cid DO 07/30/221722 [place] Phone: [phone]) 278-589503-30-2023 NoteIVR History & Physical and Clearance Inpatient consult to Anesthesiology Consult performed by: Janine Gabriel APRN - [employer]AT[employer]LING SUPERVISOR Consult ordered by: Virgil Valverde MD Name: Doug Flanagan : 1990 (Age-31 y.o.) Date of Service: Pt seen/examined on 07/30/2022 Chief Complaint: Myasthenia gravis exacerbation History Of Present Illness: We are asked to see/evaluate Doug Flanagan, a 31 y.o. female for pre-procedure evaluation prior to IR [facility] TUNNELED DIALYSIS CATH. Doug has a history of myasthenia gravis and follows with Dr. Cantor. She has recently been in exacerbation due to insurance not approving her maintenance medication and needs to start plasmapheresis. She is here today to have a tunneled catheter placed. Past Medical History: Past Medical History: Diagnosis Date E. coli colitis 2010 Epilepsy (HCC) Myasthenia gravis (HCC) Past Surgical History: Past Surgical History: Procedure Laterality Date APPENDECTOMY 2006 HIP ARTHROSCOPY (HISTORICAL) Right 2012 OTHER SURGICAL HISTORY Right 07/22/2018 THORACIS RESECTION, THYMIC TISSUE, ANT MEDIASTINAL THYMECTOMY Medications Prior to Admission: Prior to Admission medications Not on File ANTICOAGULATION: Yes, eliquis CHRONIC STEROID USE: No Allergies: Dilantin [phenytoin], Keppra [levetiracetam], Pcn [penicillins], Shellfish-derived products, and Other Social History: TOBACCO: reports that she has never smoked. She has never used smokeless tobacco. ETOH: reports no history of alcohol use. Social History Substance and Sexual Activity Drug Use No Family History: Family History Problem Relation Name Age of Onset Cancer Maternal Grandmother Heart disease Maternal Grandfather Multiple sclerosis Sister REVIEW OF SYSTEMS: Review of Systems Constitutional: Positive for appetite change (poor appetite) and fatigue. Negative for activity change and unexpected weight change. HENT: Positive for trouble swallowing. Negative for congestion and sore throat. Eyes: Negative for visual disturbance. Respiratory: Positive for chest tightness and shortness of breath. Cardiovascular: Positive for palpitations (feel like her heart races at times). Gastrointestinal: Positive for diarrhea (alternating with constipation) and nausea. Genitourinary: Negative for difficulty urinating and hematuria. Musculoskeletal: Negative for back pain and neck pain. Neurological: Positive for seizures (last seizure a week ago), speech difficulty (states speech has been slurring) and weakness (generalized). Negative for dizziness and headaches. Psychiatric/Behavioral: Negative for agitation and behavioral problems. PHYSICAL EXAM: Vitals: BP 123/74 Pulse 82 Temp 36.3 ?C (97.3 ?F) (Temporal) Resp 16 Ht 1.575 m (5' 2) Wt 77 kg (169 lb 12.1 oz) LMP 07/30/2022 SpO2 98% BMI 31.05 kg/m? BMI Classification: Obese (BMI 30.0-39.9) Physical Exam Vitals and nursing note reviewed. Constitutional: General: She is not in acute distress. Appearance: Normal appearance. HENT: Head: Normocephalic and atraumatic. Eyes: Extraocular Movements: Extraocular movements intact. Cardiovascular: Rate and Rhythm: Normal rate and regular rhythm. Pulses: Normal pulses. Heart sounds: Normal heart sounds. No murmur heard. No gallop. Pulmonary: Effort: Pulmonary effort is normal. No respiratory distress. Breath sounds: Normal breath sounds. No wheezing or rales. Abdominal: Palpations: Abdomen is soft. Tenderness: There is no abdominal tenderness. There is no guarding. Musculoskeletal: General: Normal range of motion. Cervical back: Normal range of motion and neck supple. Right lower leg: No edema. Left lower leg: No edema. Skin: General: Skin is warm and dry. Capillary Refill: Capillary refill takes less than 2 seconds. Neurological: General: No focal deficit present. Mental Status: She is alert and oriented to person, place, and time. Sensory: No sensory deficit. Motor: No weakness. Psychiatric: Mood and Affect: Mood normal. Behavior: Behavior normal. Thought Content: Thought content normal. Judgment: Judgment normal. Labs: Lab Results Component Value Date WBC 11.4 (H) 10/07/2019 HGB 13.0 10/07/2019 MCV 86.8 10/07/2019 Lab Results Component Value Date NA 138 10/08/2019 K 3.3 (L) 10/08/2019 CL 107 10/08/2019 CO2 21 (L) 10/08/2019 BUN 13 10/08/2019 CREATININE 0.56 10/08/2019 GLUCOSE 89 10/08/2019 CALCIUM 9.0 10/08/2019 PROT 7.5 10/07/2019 BILITOT 0.5 10/07/2019 ALKPHOS 81 10/07/2019 AST 23 10/07/2019 EKG: none on file ECHO and EF:None on file No components found for: LVEF, LVEFMODE ASSESSMENT/PLAN: Patient is considered low risk for this low risk procedure/surgery with no reducible risk factors. Based on the above evaluation, the benefits of the planned procedure likely exceed the risks. The patient is medically optimized to proceed with the planned p (more content not included)...[facility]03-30-2023 History and physical note* TAMEKA Garrison CNP - 07/30/2022 9:00 AM EDTAssociated Order(s): Inpatient consult to Anesthesiology IVR History & Physical and Clearance Inpatient consult to Anesthesiology Consult performed by: TAMEKA Garrison CNP Consult ordered by: Virgil Valverde MD Name: Doug Flanagan : 1990 (Age-31 y.o.) Date of Service: Pt seen/examined on 07/30/2022 Chief Complaint: Myasthenia gravis exacerbation History Of Present Illness: We are asked to see/evaluate Doug Flanagan, a 31 y.o. female for pre-procedure evaluation prior toIR CVC TUNNELED DIALYSIS CATH. Doug has a history of myasthenia gravis and follows with Dr. Cantor. She has recently been in exacerbation due to insurance not approving her maintenance medication and needs to start plasmapheresis. She is here today to have a tunneled catheter placed. Past Medical History: Past Medical History: Diagnosis Date E. coli colitis 2011 Epilepsy (HCC) Myasthenia gravis (HCC) Past Surgical History: Past Surgical History: Procedure Laterality Date APPENDECTOMY 2005 HIP ARTHROSCOPY (HISTORICAL) Right 2013 OTHER SURGICAL HISTORY Right 07/22/2018 THORACIS RESECTION, THYMIC TISSUE, ANT MEDIASTINAL THYMECTOMY Medications Prior to Admission: Prior to Admission medications Not on File ANTICOAGULATION: Yes, eliquis CHRONIC STEROID USE: No Allergies: Dilantin [phenytoin], Keppra [levetiracetam], Pcn [penicillins], Shellfish-derived products, and Other Social History: TOBACCO: reports that she has never smoked. She has never used smokeless tobacco. ETOH: reports no history of alcohol use. Social History Substance and Sexual Activity Drug Use No Family History: Family History Problem Relation Name Age of Onset Cancer Maternal Grandmother Heart disease Maternal Grandfather Multiple sclerosis Sister REVIEW OF SYSTEMS: Review of Systems Constitutional: Positive for appetite change (poor appetite) and fatigue. Negative for activity change and unexpected weight change. HENT: Positive for trouble swallowing. Negative for congestion and sore throat. Eyes: Negative for visual disturbance. Respiratory: Positive for chest tightness and shortness of breath. Cardiovascular: Positive for palpitations (feel like her heart races at times). Gastrointestinal: Positive for diarrhea (alternating with constipation) and nausea. Genitourinary: Negative for difficulty urinating and hematuria. Musculoskeletal: Negative for back pain and neck pain. Neurological: Positive for seizures (last seizure a week ago), speech difficulty (states speech hasbeen slurring) and weakness (generalized). Negative for dizziness and headaches. Psychiatric/Behavioral: Negative for agitation and behavioral problems. PHYSICAL EXAM: Vitals: BP 123/74 Pulse 82 Temp 36.3 C (97.3 F) (Temporal) Resp 16 Ht 1.575 m (5' 2) Wt 77 kg (169 lb 12.1 oz) LMP 07/30/2022 SpO2 98% BMI 31.05 kg/m BMI Classification: Obese (BMI 30.0-39.9) Physical Exam Vitals and nursing note reviewed. Constitutional: General: She is not in acute distress. Appearance: Normal appearance. HENT: Head: Normocephalic and atraumatic. Eyes: Extraocular Movements: Extraocular movements intact. Cardiovascular: Rate and Rhythm: Normal rate and regular rhythm. Pulses: Normal pulses. Heart sounds: Normal heart sounds. No murmur heard. No gallop. Pulmonary: Effort: Pulmonary effort is normal. No respiratory distress. Breath sounds: Normal breath sounds. No wheezing or rales. Abdominal: Palpations: Abdomen is soft. Tenderness: There is no abdominal tenderness. There is no guarding. Musculoskeletal: General: Normal range of motion. Cervical back: Normal range of motion and neck supple. Right lower leg: No edema. Left lower leg: No edema. Skin: General: Skin is warm and dry. Capillary Refill: Capillary refill takes less than 2 seconds. Neurological: General: No focal deficit present. Mental Status: She is alert and oriented to person, place, and time. Sensory: No sensory deficit. Motor: No weakness. Psychiatric: Mood and Affect: Mood normal. Behavior: Behavior normal. Thought Content: Thought content normal. Judgment: Judgment normal. Labs: Lab Results Component Value Date WBC 11.4 (H) 10/07/2019 HGB 13.0 10/07/2019 MCV 86.8 10/07/2019 Lab Results Component Value Date NA 138 10/08/2019 K 3.3 (L) 10/08/2019 CL 107 10/08/2019 CO2 21 (L) 10/08/2019 BUN 13 10/08/2019 CREATININE 0.56 10/08/2019 GLUCOSE 89 10/08/2019 CALCIUM 9.0 10/08/2019 PROT 7.5 10/07/2019 BILITOT 0.5 10/07/2019 ALKPHOS 81 10/07/2019 AST 23 10/07/2019 EKG: none on file ECHO and EF:None on file No components found for: LVEF, LVEFMODE ASSESSMENT/PLAN: Patient is considered low risk for this low risk procedure/surgery with no reducible risk factors. Based on the above evaluation, the benefits of the planned procedure likely exceed the risks. The patient is medically optimized to proceed with the planned procedure without any further cardiopulmonary testing. 1) MG (myasthenia gravis) ([facility]) [G70.00 (ICD-10-CM)]; Myasthenia gravis with (acute) exacerbation (HCC) [G70.01 (ICD-10-CM)] -followed by Dr. Cantor -was taking Ultomiris but states insurance denied and she has not been able to take it -needs to start plasmapheresis -to specials today for tunneled catheter placement 2) Seizures -taking lamictal, trileptal, lexapro -last seizure was about a week ago 3) Elevated blood pressure without diagnosis of hypertension -encouraged lifestyle modification and follow up with PCP BP Readings from Last 3 Encounters: 07/30/22 123/74 Labs Ordered: YES - PER IVR EKG Ordered: NO Electronically signed by: TAMEKA Garrison CNP Date: Via6 Work Phone: 1([phone]) 845-234303-30-2023 History and physical note* TAMEKA Garrison CNP - 07/30/2022 9:00 AM EDTAssociated Order(s): Inpatient consult to Anesthesiology IVR History & Physical and Clearance Inpatient consult to Anesthesiology Consult performed by: TAMEKA Garrison CNP Consult ordered by: Virgil Valverde MD Name: Doug Flanagan : 1990 (Age-31 y.o.) Date of Service: Pt seen/examined on 07/30/2022 Chief Complaint: Myasthenia gravis exacerbation History Of Present Illness: We are asked to see/evaluate Doug Flanagan, a 31 y.o. female for pre-procedure evaluation prior toIR CVC TUNNELED DIALYSIS CATH. Doug has a history of myasthenia gravis and follows with Dr. Cantor. She has recently been in exacerbation due to insurance not approving her maintenance medication and needs to start plasmapheresis. She is here today to have a tunneled catheter placed. Past Medical History: Past Medical History: Diagnosis Date E. coli colitis 2010 Epilepsy (HCC) Myasthenia gravis (HCC) Past Surgical History: Past Surgical History: Procedure Laterality Date APPENDECTOMY 2006 HIP ARTHROSCOPY (HISTORICAL) Right 2013 OTHER SURGICAL HISTORY Right 07/22/2018 THORACIS RESECTION, THYMIC TISSUE, ANT MEDIASTINAL THYMECTOMY Medications Prior to Admission: Prior to Admission medications Not on File ANTICOAGULATION: Yes, eliquis CHRONIC STEROID USE: No Allergies: Dilantin [phenytoin], Keppra [levetiracetam], Pcn [penicillins], Shellfish-derived products, and Other Social History: TOBACCO: reports that she has never smoked. She has never used smokeless tobacco. ETOH: reports no history of alcohol use. Social History Substance and Sexual Activity Drug Use No Family History: Family History Problem Relation Name Age of Onset Cancer Maternal Grandmother Heart disease Maternal Grandfather Multiple sclerosis Sister REVIEW OF SYSTEMS: Review of Systems Constitutional: Positive for appetite change (poor appetite) and fatigue. Negative for activity change and unexpected weight change. HENT: Positive for trouble swallowing. Negative for congestion and sore throat. Eyes: Negative for visual disturbance. Respiratory: Positive for chest tightness and shortness of breath. Cardiovascular: Positive for palpitations (feel like her heart races at times). Gastrointestinal: Positive for diarrhea (alternating with constipation) and nausea. Genitourinary: Negative for difficulty urinating and hematuria. Musculoskeletal: Negative for back pain and neck pain. Neurological: Positive for seizures (last seizure a week ago), speech difficulty (states speech hasbeen slurring) and weakness (generalized). Negative for dizziness and headaches. Psychiatric/Behavioral: Negative for agitation and behavioral problems. PHYSICAL EXAM: Vitals: BP 123/74 Pulse 82 Temp 36.3 C (97.3 F) (Temporal) Resp 16 Ht 1.575 m (5' 2) Wt 77 kg (169 lb 12.1 oz) LMP 07/30/2022 SpO2 98% BMI 31.05 kg/m BMI Classification: Obese (BMI 30.0-39.9) Physical Exam Vitals and nursing note reviewed. Constitutional: General: She is not in acute distress. Appearance: Normal appearance. HENT: Head: Normocephalic and atraumatic. Eyes: Extraocular Movements: Extraocular movements intact. Cardiovascular: Rate and Rhythm: Normal rate and regular rhythm. Pulses: Normal pulses. Heart sounds: Normal heart sounds. No murmur heard. No gallop. Pulmonary: Effort: Pulmonary effort is normal. No respiratory distress. Breath sounds: Normal breath sounds. No wheezing or rales. Abdominal: Palpations: Abdomen is soft. Tenderness: There is no abdominal tenderness. There is no guarding. Musculoskeletal: General: Normal range of motion. Cervical back: Normal range of motion and neck supple. Right lower leg: No edema. Left lower leg: No edema. Skin: General: Skin is warm and dry. Capillary Refill: Capillary refill takes less than 2 seconds. Neurological: General: No focal deficit present. Mental Status: She is alert and oriented to person, place, and time. Sensory: No sensory deficit. Motor: No weakness. Psychiatric: Mood and Affect: Mood normal. Behavior: Behavior normal. Thought Content: Thought content normal. Judgment: Judgment normal. Labs: Lab Results Component Value Date WBC 11.4 (H) 10/07/2019 HGB 13.0 10/07/2019 MCV 86.8 10/07/2019 Lab Results Component Value Date NA 138 10/08/2019 K 3.3 (L) 10/08/2019 CL 107 10/08/2019 CO2 21 (L) 10/08/2019 BUN 13 10/08/2019 CREATININE 0.56 10/08/2019 GLUCOSE 89 10/08/2019 CALCIUM 9.0 10/08/2019 PROT 7.5 10/07/2019 BILITOT 0.5 10/07/2019 ALKPHOS 81 10/07/2019 AST 23 10/07/2019 EKG: none on file ECHO and EF:None on file No components found for: LVEF, LVEFMODE ASSESSMENT/PLAN: Patient is considered low risk for this low risk procedure/surgery with no reducible risk factors. Based on the above evaluation, the benefits of the planned procedure likely exceed the risks. The patient is medically optimized to proceed with the planned procedure without any further cardiopulmonary testing. 1) MG (myasthenia gravis) (HCC) [G70.00 (ICD-10-CM)]; Myasthenia gravis with (acute) exacerbation (HCC) [G70.01 (ICD-10-CM)] -followed by Dr. Cantor -was taking Ultomiris but states insurance denied and she has not been able to take it -needs to start plasmapheresis -to specials today for tunneled catheter placement 2) Seizures -taking lamictal, trileptal, lexapro -last seizure was about a week ago 3) Elevated blood pressure without diagnosis of hypertension -encouraged lifestyle modification and follow up with PCP BP Readings from Last 3 Encounters: 07/30/22 123/74 Labs Ordered: YES - PER IVR EKG Ordered: NO Electronically signed by: Janine Gabriel APRN - PLATFORM MATERIAL HANDLING SUPERVISOR Date: documented in this [facility]03-30-2023 Nurse Note* Jefry Abraham RN - 07/30/2022 9:00 AM EDT Pt provided with discharge instructions and all questions answered. Steady, independent gait on unit. Discharged with all belongings. Pt discharge to registration via wheelchair by [place] with mother. [id number]* Jefry Abraham RN - 07/30/2022 9:00 AM EDT Pt provided with discharge instructions and all questions answered. Steady, independent gait on unit. Discharged with all belongings. Pt discharge to registration via wheelchair by IA with mother. Ptto go to dialysis. documented in this encounterSOhio[facility] [id number] History of Present illness Narrative* Zaynab Herman APRN.ROLF - 07/17/2022 2:15 PM EDT Patient came in with complaints of severe left flank pain. Says it radiates to the front around [facility]. Patient says it is a 10 out of 10. Patient says she is extremely nauseated and sweating and uncomfortable. Patient says this started 3 days ago and seems to be getting worse. Patient denies any other symptoms with it at this time. He is being referred to the emergency room for full evaluation. [facility] History of Present illness Narrative* BRANDON Hurtado - 07/12/2022 11:16 AM EDT This note was created using Splitriter. Subjective Doug Flanagan is a 31 year old female. HPI 31-year-old female presents for cough, chest congestion. Patient states she has had cough for the past 4 days. She states that today she started coughing up some mucus. She states that she has had a little bit of runny nose, but nothing severe. No sinus congestion or sinus pain. No headaches. No fevers. No chest pain or shortness of breath. She does report that her chest feels like it is congested, and has some pain with coughing, but not at rest. She denies any vomiting or diarrhea. No sick contacts. PAST MEDICAL HISTORY Diagnosis Date Abnormal Pap [...] 9 years of age Fell off the [employer] (powering [employer]); lost consciousness 3-5 minutes PAST SURGICAL HISTORY Procedure Laterality Date APPENDECTOMY COLONOSCOPY 04/08/2022 No repeat due to age CONIZATION OF CERVIX; COLD KNIFE/LASER 10/17/2021 Paragard removal, Mirena IUD insertion HIP SURGERY HX Right INSJ TUNNELED CTR VAD W/SUBQ PORT AGE 5 YR/> 10/16/2020 LEEP PROCEDURE ([employer] DEPT)_*FL THYMECTOMY, PARTIAL/TOTAL total ALLERGIES Compazine [Prochlorperazine], Dilantin [Phenytoin], Iodides, Keppra [Levetiracetam], Penicillins, Shellfish Containing Products, and Soy Protein MEDICATIONS ravulizumab-cwvz (ULTOMIRIS) 100 mg/mL injection as directed Intravenous lamoTRIgine ER (LAMICTAL XR) 250 mg 24 hr tablet diazePAM (VALTOCO) 10 mg/spray (0.1 mL) nasal spray as directed. escitalopram oxalate (LEXAPRO) 10 mg tablet Take 10 mg by mouth once daily. apixaban (ELIQUIS) 5 mg tab(s) Take 5 mg by mouth twice daily. rOPINIRole (REQUIP) 0.5 mg tablet take 1 tablet by mouth 1-3 HOURS PRIOR TO BEDTIME OXcarbazepine (TRILEPTAL) 150 mg tablet Take 150 mg by mouth daily at bedtime. LORazepam (ATIVAN) 1 mg tablet take 1 tablet by mouth if needed for SEIZURE GERATER THAN 5 MINUTES DIRECTED (FOR 30 DAYS) levonorgestrel (MIRENA) 20 mcg/24 hours (8 yrs) 52 mg IUD 1 Each by INTRAUTERINE route one time only. lamoTRIgine ER (LAMICTAL XR) 100 mg 24 hr tablet Take two (2.0) in AM and four(4.0) tablets at bedtime (Patient taking differently: Take two (1) in AM and four(4.0) tablets at bedtime) zonisamide (ZONEGRAN) 100 mg capsule Take 3 capsules by mouth once daily. acetaminophen (TYLENOL) 325 mg tablet Take 650 mg by mouth every 6 hours as needed. benzonatate (TESSALON PERLES) 100 mg capsule Take 1 capsule by mouth three times daily as needed for cough. peg 3350-Electrolytes (GOLYTELY) 236-22.74-6.74 -5.86 gram suspension Sip on it until gone (Patientnot taking: Reported on 07/12/2022) FAMILY HISTORY Problem Relation Age of Onset Headache Mother Multiple Sclerosis Sister Headache Maternal Grandfather Seizures Maternal Aunt Traumatic epilepsy Colon Cancer No Family History Social History Tobacco Use Smoking status: Never Smokeless tobacco: Never Vaping Use Vaping Use: Never used Substance Use Topics Alcohol use: No Drug use: No Review of Systems Constitutional: Negative for chills and fever. HENT: Negative for congestion, ear pain and sore throat. Respiratory: Positive for cough. Negative for shortness of breath. Cardiovascular: Negative for chest pain. Gastrointestinal: Negative for diarrhea and vomiting. Objective BP 98/76 Pulse (!) 125 Temp 36.7 C (98.1 F) Resp 21 Wt 78.7 kg (173 lb 9.6 oz) LMP 03/18/2022 SpO2 97% BMI 31.75 kg/m Physical Exam Vitals and nursing note reviewed. Constitutional: General: She is not in acute distress. Appearance: Normal appearance. She is not toxic-appearing. HENT: Right Ear: Tympanic membrane and ear canal normal. Left Ear: Tympanic membrane and ear canal normal. Nose: Nose normal. Mouth/Throat: Mouth: Mucous membranes are moist. Pharynx: No oropharyngeal exudate or posterior oropharyngeal erythema. Eyes: Conjunctiva/sclera: Conjunctivae normal. Cardiovascular: Rate and Rhythm: Regular rhythm. Tachycardia present. Pulmonary: Effort: Pulmonary effort is normal. Breath sounds: Normal breath sounds. Neurological: Mental Status: She is alert. Assessment and Plan ASSESSMENT/PLAN: 1. URI, acute - ICD9: 465.9, ICD10: J06.9 - Discussed viral etiology and rationale for treatment. - Symptomatic treatment with prn analgesia - Supportive care with fluids and rest -Did home COVID test that was negative. Declines COVID/flu -Lungs are clear, low suspicion for pneumonia at this time. We will hold off on CXR. -Discussed with patient this is most likely viral. Rx for Tessalon Perles to help with cough. Diagnosis and treatment plan were discussed and questions were answered to the patient's satisfaction. Pt acknowledged understanding of concepts and follow up plan. Specific signs and symptoms that would indicate the need for higher level of care were discussed in detail warranting prompt ER evaluation. BRANDON Hurtado documented in this [facility]12-28-2022 Instructions* Patient Instructions* Salome Juárez MA - 04/29/2022 8:34 AM EST YOUR RECOVERY It may take a few weeks for your cervix to heal. While your cervix heals, you may have: - Vaginal bleeding (less than a normal menstrual period) - Mild cramping - A brown-black vaginal discharge (similar to coffee grounds) which is a result of the paste used to help stop bleeding from the procedure Do NOT put anything in the vagina for 1 week after your colposcopy if your doctor does a biopsy of your cervix. This includes sex, tampons, and douches. If you have any discomfort, you may take an over the counter pain medication (motrin, advil, ibuprofen, tylenol, etc). If this does not relieve your discomfort, contact your doctor's office for a prescription strength pain medication. It is okay to wear a sanitary pad until the discharge and spotting stops. RISKS Although problems seldom occur with colposcopy, there can be some complications. You may feel faintduring and shortly after the procedure as well as have some bleeding and vaginal discharge after the procedure. There is also a risk of infection after the procedure. These complications are rare andcan be easily treated. You should contact you doctor is you have any of the following: - Heavy bleeding (more than your normal period) - Bleeding with clots - Severe abdominal pain - Fever (more than 100.4F) - Foul smelling vaginal discharge RESULTS If a biopsy was taken, we will have the results of your biopsy in 1-2 weeks. If you do not hear theresults of your biopsy after 2 weeks, please contact your physicians office for the results. Depending on the biopsy results, your doctor will determine your follow up plan which may include further testing or treatments. STAYING HEALTHY After the procedure, you will need to see your doctor for follow up visits during the year. At these visits your doctor will check the health of your cervix with a pap smear. After three normal pap smears, your doctor will allow you to return to having exams once a year. If you have another abnormal pap smear, you may need closer follow up for longer or you may need additional treatment. By making a few lifestyle changes after the procedure, you can help protect the health of your cervix: - Have regular pelvic exams and pap smears as ordered by your doctor. - Stop smoking as smoking increases your risk of developing a cancer of the cervix - If you have more than one sexual partner, limit your number of partners and use condoms to reduceyour risks of STDs. If you have any additional questions, please contact your doctor's office. documented in this encounterM[facility]12-28-2022 History of Present illness Narrative* Sarah Pop MD - 04/29/2022 8:33 AM EST Adobe Layer Helper offered: Patient declinesMonica Camacho is a 31 year old who presents today for a colposcopy. The patient's last pap smear was ASCUSwith positive HPV from July 2021. Patient has a history of abnormal pap: Yes. The patient has had prior treatment: CKC for CIN2 and positive ECC. This is follow up given positive margin. test: negative UNIVERSAL PROTOCOL / SAFETY CHECKLIST Procedure to be Performed: Colposcopy Sign In: A Moment of CARE was completed. Personnel directly involved with the procedure wore the appropriate PPE (Personal Protective Equipment). Patient/Surrogate Stated/Verified: PATIENT VERIFIED(optional for EMERGENT procedures): Patient name, Date of , Relevant allergies, and The intended procedure Time Out Communication: Intended patient and procedure match the source documents. Consent documented and matches the intended procedure. Sign Out: SIGN OUT (optional for EMERGENT procedures): All specimen containers correctly labeled. All instruments, equipment, possible retained foreign bodies accounted for. Post-procedure follow-up management communicated and Plan of Care Visit completed when applicable. PROCEDURE: EXTERNAL GENITALIA: Normal in appearance without lesions VAGINA: Normal in appearance without lesions CERVIX: Speculum placed in vagina and excellent visualization of cervix achieved. Cervix swabbed x 3 with 3% acetic acid solution. Cervix grossly normal. Squamocolumnar junction visualized. acetowhite changes noted 10, 2, 7. BIOPSY: Done at 2:00, 7:00, and 10:00 ECC: done HEMOSTASIS: Obtained with pressure Procedure Summary: Patient tolerated procedure well and colposcopy was adequate. ASSESSMENT: H/o CIN2 and CKC PLAN: Specimens labeled and sent to Pathology. Will notify patient of results in 1-2 weeks. Post-procedure instructions reviewed and written material given to the patient. Sarah Pop DO documented in this [facility]12-07-[facility]22 Nurse Note* Reid Dodson - 04/08/2022 1:42 PM EST MD at the bedside. [facility] Note* Reid Dodson - 04/08/2022 1:42 PM EST MD at the bedside. * Reid Dodson - 04/08/2022 1:30 PM EST Discharge instructions given, pt verbalized understanding. * Karin Ferguson RN - 04/08/2022 12:35 PM EST Gladys Ventura RN accessed port. Pt tolerated well. documented in this [facility]12-07-2022 Nurse Note* Reid Dodson - 04/08/2022 1:30 PM EST Discharge instructions given, pt verbalized understanding. Health12-07-2022 Nurse Note* Karin Ferguson RN - 04/08/2022 12:35 PM EST Gladys Ventura RN accessed port. Pt tolerated well. Health12-07-2022 History and physical note* Angelita Ho MD - 04/08/2022 11:30 AM EST HISTORY AND PHYSICAL Doug Flanagan, 31 year old female here for colonoscopy, to evaluate constipation and generalized abdominal pain Current history and physical on file: Yes Is a new History and Physical required for today's visit? No Indication for procedure: Constipation PROCEDURE(S) SCHEDULED FOR: Colonoscopy with or without biopsies and with or without removal of polyps or lesions, dilation (any means), treatment of bleeding (any means), based on clinical findings. BASELINE BEHAVIOR: Calm BASELINE ORIENTATION: A & O x3 All medications and allergies reviewed: Yes Skin Assessment: Warm dry muscus membranes pink Airway/Respiratory Assessment: Airway: visualization of the uvula- Yes Mouth: opening greater than 2 fingerbreadths- Yes Neck: full range of motion- Yes Breath sounds clear/equal- Yes Cardiac Assessment: Regular rate and rhythm without murmur Abdominal Assessment: Abdomen soft, non-tender, no masses or organomegaly. Sedation Plan: Deep Additional Comments: None Angelita Ho MD Health Work Phone: [phone]) 434-267012-07-2022 History and physical note* Angelita Ho MD - 04/08/2022 11:30 AM EST HISTORY AND PHYSICAL Doug Flanagan, 31 year old female here for colonoscopy, to evaluate constipation and generalized abdominal pain Current history and physical on file: Yes Is a new History and Physical required for today's visit? No Indication for procedure: Constipation PROCEDURE(S) SCHEDULED FOR: Colonoscopy with or without biopsies and with or without removal of polyps or lesions, dilation (any means), treatment of bleeding (any means), based on clinical findings. BASELINE BEHAVIOR: Calm BASELINE ORIENTATION: A & O x3 All medications and allergies reviewed: Yes Skin Assessment: Warm dry muscus membranes pink Airway/Respiratory Assessment: Airway: visualization of the uvula- Yes Mouth: opening greater than 2 fingerbreadths- Yes Neck: full range of motion- Yes Breath sounds clear/equal- Yes Cardiac Assessment: Regular rate and rhythm without murmur Abdominal Assessment: Abdomen soft, non-tender, no masses or organomegaly. Sedation Plan: Deep Additional Comments: None Angelita Ho MD [facility] Instructions* Patient Instructions* Becky Becerra PA-C - 04/06/2022 7:43 AM EST Images from the original note were not included. Bowel Preparation Instructions for: Miralax-Gatorade Preparations IF YOU DO NOT FOLLOW THESE DIRECTIONS, YOUR COLONOSCOPY WILL BE CANCELLED. Brennan Instructions: Your bowel must be empty so that your doctor can clearly view your colon. Follow all of the instructions in this handout EXACTLY as they are written. Do NOT eat any solid food the ENTIRE day before your colonoscopy. Buy your bowel preparation at least 5 days before your colonoscopy. Four (4) Dulcolax laxative tablets containing 5mg of bisacodyl each (NOT Dulcolax stool softener) One (1) 8.3oz. bottle Miralax (238 grams) or generic equivalent 2 x 32oz. Bottles of Gatorade (NOT RED) Diabetic Patients: Use G2 (Gatorade 2) TRANSPORTATION on the Day of Your Exam A responsible adult MUST be present with you at Check In prior to your colonoscopy and REMAIN in the endoscopy area until you are discharged. You are NOT ALLOWED to drive, take a taxi or bus, or leave the Endoscopy Center ALONE. If you do not have a responsible motor driver (family member or friend) withyou to take you home, your exam cannot be done with sedation and will be cancelled. Please bring a list of all of your current medications, including any Bbai-dyd-Gbuutlz medications with you. Medications If you take insulin, diabetic medications or blood thinners such as Coumadin (warfarin), Plavix (clopidogrel), Ticlid (ticlopidine hydrochloride), Agrylin (anagrelide), Xarelto (Rivaroxaban), Pradaxa(Dabigatran), Eliquis (Apixaban), and Effient (Prasugrel). You MUST call the doctors who orders those medicines for instructions on altering the dosage before your colonoscopy. All other medications should be taken the day of the exam with a sip of water including ASPIRIN. Five (5) Days Before Your Colonoscopy Do NOT take medicines that stop diarrhea - such as Imodium, Kaopectate, or Pepto Bismol. Do NOT take fiber supplements - such as Metamucil, Citrucel, or Perdiem. Do NOT take products that contain iron - such as multi-vitamins (the label lists what is in the products). Three (3) Days Before Your Colonoscopy Do NOT eat high-fiber foods - such as popcorn, beans, seeds (flax, sunflower, quinoa), multigrain bread, nuts, salad/vegetables, or fresh and dried fruit. 1 Bowel Preparation Instructions for: Miralax-Gatorade Preparations One (1) Day Before Your Colonoscopy Only drink clear liquids the ENTIRE DAY before your colonoscopy. Do NOT eat any solid foods. Drink at least 8 ounces of clear liquids every hour after waking up. The clear liquids you can drink include: Clear Liquid (NO RED LIQUIDS) DO NOT DRINK Gatorade, Pedialyte or Powerade Clear broth or bouillon Coffee or tea (no milk or non-dairy creamer) Carbonated and non-carbonated soft drinks Kevin-Aid or other fruit flavored drinks Strained fruit juices (no pulp) Jell-O, popsicles, hard candy Water Alcohol Milk or non-dairy creamers Noodles or vegetables in soup Juice with pulp Liquid you cannot see through Do not use tobacco/vaping products Mix 1/2 of Miralax bottle (119 grams) in each 32 ounces of Gatorade bottle until dissolved. Keep cool in the refrigerator. DO NOT ADD ICE. The bowel preparation solution will be consumed in two parts. Part 1 5:00 PM - Evening before your colonoscopy Take 4 Dulcolax tablets. 6 PM - Evening before your colonoscopy Drink 32 oz. of the mixed solution. Drink an 8 oz. glass of bowel preparation every 15 minutes for a total of 4 glasses. Fifteen (15) minutes later, drink an 8 oz. glass of of clear liquids every 15 minutes for a total of 2 glasses. You may continue to drink clear liquids till midnight. Part 2 On the day of your colonoscopy you may drink clear liquids up to (three) 3 hours prior to procedure. 4 1/2 hours before your colonoscopy Take another 32 oz. bottle of mixed solution. Drink an 8 oz. glass of bowel prep every 15 minutes for a total of 4 glasses. Fifteen (15) minutes later, drink an 8 oz. glass of clear liquids every 15 minutes for a total of 2glasses. You may continue to drink clear liquids up to (three) 3 hours before your exam. 2 04/2019 [facility]12[facility] Miscellaneous Notes* Telephone Encounter - Becky Becerra PA-C - 04/06/2022 7:43 AM EST Colonoscopy order placed. Not sure if she would want it for here or [place]. Order is for [facility] if we could please get her scheduled for this. Thanks! documented in this encounterM[facility]11[facility]30-[facility] History of Present illness Narrative* Becky Becerra PA-C - 04/01/2022 9:06 AM EST CHIEF COMPLAINT: Patient presents with: Severe Abdominal Pain : Constipation- CT at [facility]03/27 in Care Everywhere This consult was requested by No ref. provider found for an opinion regarding severe abdominal pain, constipation. My final recommendations will be communicated to the requesting health care providerby way of the shared medical record for internal providers or letter via the [employer] for external providers. HPI: Doug Flanagan is a 31 year old female who presents for Severe Abdominal Pain (Constipation- CT at [facility] 03/27 in Care Everywhere ). PMHx of epilepsy, migraine, myasthenia gravis, TBI Patient tells me that starting on March 20, hasn't been able to move her bowels. Did vomit up bile x1. Haivng severe abdominal pains, worse on the L side. Appetite is poor. Feels sick when she has to eat. Weight is decreasing. Feeling very bloated. Notes chills, some SOB due to bloating, no CP. Has tried enemas, dulcolax, Miralax cleanse, baking soda, lemon/water, prunes, senna, hot showers. Usually constipated, going about two times a week. Does honey/lemon water which helps. CT abd/pelvis 03/27/2022: IMPRESSION: 1. No acute process of the abdomen and pelvis. 2. Large amount retained stool in the colon 3. No free air or free fluid or bowel dilatation or obstruction Record Review: [facility] / Outside records reviewed. 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)_*FL THYMECTOMY, PARTIAL/TOTAL total Allergies: ALLERGIES Allergen Reactions Compazine [Prochlor* Intolerance Dilantin [Phenytoin] Mental Status Change Hallucination, vomiting Iodides Other: See Comments Pt states she can have a seizure with sea food but has had CT with dye without any problem on numerous occasions Keppra [Levetiracet* Mental Status Change, Other: See Comments Hallucinations, suicidal thoughts Penicillins Rash Shellfish Containin* Other: See Comments Soy Protein Other: See Comments Medications: ravulizumab-cwvz (ULTOMIRIS) 100 mg/mL injection as directed Intravenous lamoTRIgine ER (LAMICTAL XR) 250 mg 24 hr tablet diazePAM (VALTOCO) 10 mg/spray (0.1 mL) nasal spray as directed. escitalopram oxalate (LEXAPRO) 10 mg tablet Take 10 mg by mouth once daily. apixaban (ELIQUIS) 5 mg tab(s) Take 5 mg by mouth twice daily. rOPINIRole (REQUIP) 0.5 mg tablet take 1 tablet by mouth 1-3 HOURS PRIOR TO BEDTIME OXcarbazepine (TRILEPTAL) 150 mg tablet Take 150 mg by mouth daily at bedtime. LORazepam (ATIVAN) 1 mg tablet take 1 tablet by mouth if needed for SEIZURE GERATER THAN 5 MINUTES DIRECTED (FOR 30 DAYS) levonorgestrel (MIRENA) 20 mcg/24 hours (8 yrs) 52 mg IUD 1 Each by INTRAUTERINE route one time only. lamoTRIgine ER (LAMICTAL XR) 100 mg 24 hr tablet Take two (2.0) in AM and four(4.0) tablets at bedtime (Patient taking differently: Take two (1) in AM and four(4.0) tablets at bedtime) zonisamide (ZONEGRAN) 100 mg capsule Take 3 capsules by mouth once daily. acetaminophen (TYLENOL) 325 mg tablet Take 650 mg by mouth every 6 hours as needed. 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 Cardiovascular: Positive for chest pain and palpitations. Gastrointestinal: Positive for abdominal distention, abdominal pain, constipation and nausea. Change in Bowel Habits, Gas All other systems reviewed and are negative. Are you taking any blood thinners? Yes, Eliquis Physical Examination: BP 108/80 Pulse 97 Ht 5' 2 (1.58m) Wt 167 lb 11.2 oz (76.1kg) LMP 08/05/2021 BMI 30.66 kg/(m^2). Physical Exam Constitutional: Appearance: Normal appearance. HENT: Head: Normocephalic and atraumatic. Eyes: General: No scleral icterus. Extraocular Movements: Extraocular movements intact. Conjunctiva/sclera: Conjunctivae normal. Pupils: Pupils are equal, round, and reactive to light. Cardiovascular: Rate and Rhythm: Normal rate and regular rhythm. Pulses: Normal pulses. Heart sounds: Normal heart sounds. Pulmonary: Effort: Pulmonary effort is normal. Breath sounds: Normal breath sounds. Abdominal: General: There is distension. Tenderness: There is abdominal tenderness (generalized). Comments: Hyperactive bowel sounds through out Musculoskeletal: General: Normal range of motion. Cervical back: Normal range of motion and neck supple. Skin: General: Skin is warm and dry. Coloration: Skin is not jaundiced. Neurological: General: No focal deficit present. Mental Status: She is alert and oriented to person, place, and time. Psychiatric: Mood and Affect: Mood normal. Behavior: Behavior normal. Thought Content: Thought content normal. Judgment: Judgment normal. Assessment/Plan (K59.00) Acute constipation (primary encounter diagnosis) (R10.84) Generalized abdominal pain 1. Acute constipation -- Patient has not had a bowel movement since at least March 17. Having severe abdominal pain,vomiting bile, chills, decreased appetite. -- Plan for STAT x-ray r/o obstruction. If negative, plan for Golytely cleanse. - XR ABDOMEN 2V ROUTINE SUPINE W UPRIGHT/DECUB/CTL; Future - peg 3350-Electrolytes (GOLYTELY) 236-22.74-6.74 -5.86 gram suspension; Sip on it until gone Dispense: 4000 mL; Refill: 0 2. Generalized abdominal pain -- Patient has not had a bowel movement since at least March 17. Having severe abdominal pain,vomiting bile, chills, decreased appetite. -- Plan for STAT x-ray r/o obstruction. If negative, plan for Golytely cleanse. - XR ABDOMEN 2V ROUTINE SUPINE W UPRIGHT/DECUB/CTL; Future - peg 3350-Electrolytes (GOLYTELY) 236-22.74-6.74 -5.86 gram suspension; Sip on it until gone Dispense: 4000 mL; Refill: 0 Follow up in office PRN. Recommended to please call office/go to ER if fever, chills, chest pain, SOB, diarrhea, nausea, emesis, worsening abdominal pain, dehydration occurs I spent 25 minutes in the visit, with more than 50% of the total xrkd-oq-wpog time of the visit in counseling / coordination of care. I have confirmed and edited as necessary, the PFSH and ROS obtained by others. Becky Becerra PA-C April 01, 2022 9:28 AM documented in this encounterM[facility]11-25-2022 History of Present illness Narrative* John Ramirez APRN.[facility] - 03/27/2022 8:43 AM EST Nontoxic-appearing female presents urgent care chief complaint abdominal pain. Duration of symptoms3 to 4 days. Associated symptoms worsening abdominal pain. Patient states pain is radiating from flank to left lower quadrant. States pain is worsening. States she is vomiting bile. With patient's presenting symptoms I recommend patient be seen ED for further evaluation care and imaging. John Ramirez APRN.[facility] documented in this encounterM[facility]10-24-2022 Miscellaneous Notes* Telephone Encounter - Lesly Deras RN - 02/23/2022 10:49 AM EDT Scheduled 04/29 @ 0840 * Telephone Encounter - Karen Gomez RN - 02/23/2022 10:39 AM EDT Left message for patient to call office. Karen Gomez RN documented in this [facility]08-22-2022 Instructions* Patient Instructions* Louise Soriano APRN.[facility] - 12/22/2021 7:45 PM EDT HEMATURIA What is hematuria? Hematuria is the presence of red blood cells in the urine. In microscopic hematuria, the urine appears normal to the naked eye, but examination with a microscope shows a number of red blood cells. Gross hematuria can be seen with the naked eye-the urine is red, pink, or the color of cola. What causes hematuria? Several conditions can cause hematuria. For example, exercise may cause hematuria that goes away in24 hours. Many people have hematuria without any other related problems. Often no specific cause can be found. But because hematuria may be the result of a tumor or other serious problem, a doctor should be consulted. How is hematuria diagnosed? To find the cause of hematuria, or to rule out certain causes, the doctor may order a series of tests, including urinalysis, blood tests, kidney imaging studies, and cystoscopic examination. A urinalysis is the examination of urine for various cells and chemicals. In addition to finding red blood cells, the doctor may find white blood cells that signal a urinary tract infection or casts,which are groups of cells molded together in the shape of the kidneys' tiny filtering tubes, which signal kidney disease. Excessive protein in the urine also signals kidney disease. FISH is a noninvasive, urine-based genetic test for the diagnosis and surveillance of bladder cancer. It provides the most sensitive detection of bladder cancer available today - and can detect bladder cancer up to six months sooner than other tests. Blood tests may reveal kidney disease if the blood contains high levels of wastes that the kidneys are supposed to remove. Kidney imaging studies include ultrasound, computerized tomography (CT) scan, or intravenous pyelogram (IVP). An IVP is an x ray of the urinary tract. Imaging studies may reveal a tumor, a kidney or bladder stone, an enlarged prostate or other blockage to the normal flow of urine. A cystoscope can be used to evaluate and visualize inside of the bladder. It has a tiny camera at the end of a thin tube, which is inserted through the urethra. A cystoscope may provide a better viewof a tumor or bladder stone than can be seen in an IVP. How is hematuria treated? Treatment for hematuria depends on the cause. If no serious condition is causing the hematuria, no treatment is necessary.CONTUSIONS GENERAL INFORMATION: A contusion, or bruise, is caused by an injury that does not break the skin. Bleeding under the skin causes it to look black and blue. It may take 2 or 3 weeks for the bruising to disappear. INSTRUCTIONS: 1. You may continue your normal daily activities as tolerated. Rest the injured area as much as possible. 2. Apply ice to the injury for 15 minutes each hour (while awake) for the first two days. Put the ice in a plastic bag and place a thin towel between the bag of ice and your skin. 3. After the first 1 to 2 days, you may apply heat to the injury to help relieve pain. You may use a warm heating pad, whirlpool bath, or warm moist towels for 15-20 minutes every hour (while awake) for 48 hours. 4. You may use medicines for pain such as acetaminophen, ibuprofen or aspirin (unless otherwise instructed by your physician). CONTACT YOUR DOCTOR OR RETURN TO THE ED IF: 1. Your pain becomes worse. 2. You develop a temperature over 101 F (38.3 C). 3. The swelling increases greatly in the area of the bruise. 4. Redness or lines of redness develop in the area of the bruise. documented in this encounterM[facility] Hospital08-22-2022 History of Present illness Narrative* Louise Soriano APRN.CNP - 12/22/2021 7:05 PM EDT This note was created using Splitriter. Subjective Doug Flaangan is a 31 year old female. 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 Acute onset yesterday. States that she was bending over her bed/dresser to obtain her phone. States that her arms gave, and she fell onto her left side, Striking her dresser drawer. Denies head trauma or injury. Denies neck or back pain. Denies LOC States that she has pain with movement and touching Pain with deep inspiration. Just want to make sure I am okay The history is provided by the patient. No inspector open die was used. Musculoskeletal Problem This is a new problem. The current episode started yesterday. The problem occurs constantly. The problem has been unchanged. Pertinent negatives include no abdominal pain, anorexia, arthralgias, change in bowel habit, chest pain, chills, congestion, coughing, diaphoresis, fatigue, fever, headaches,joint swelling, myalgias, nausea, neck pain, numbness, rash, sore throat, swollen glands, urinary symptoms, vertigo, visual change, vomiting or weakness. Exacerbated by: movement and deep breaths. She has tried nothing for the symptoms. The treatment provided no relief. 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 escitalopram oxalate (LEXAPRO) 10 mg tablet Take 10 mg by mouth once daily. apixaban (ELIQUIS) 5 mg tab(s) Take 5 mg by mouth twice daily. hydrOXYzine HCl (ATARAX) 50 mg tablet Take 50 mg by mouth daily at bedtime. rOPINIRole (REQUIP) 0.5 mg tablet take 1 tablet by mouth 1-3 HOURS PRIOR TO BEDTIME OXcarbazepine (TRILEPTAL) 150 mg tablet Take 150 mg by mouth daily at bedtime. LORazepam (ATIVAN) 1 mg tablet take 1 tablet by mouth if needed for SEIZURE GERATER THAN 5 MINUTES DIRECTED (FOR 30 DAYS) eculizumab (SOLIRIS INTRAVENOUS) Inject intravenously. levonorgestrel (MIRENA) 20 mcg/24 hours (5 yrs) 52 mg IUD 1 Each by INTRAUTERINE route one time only. lamoTRIgine ER (LAMICTAL XR) 100 mg 24 hr tablet Take two (2.0) in AM and four(4.0) tablets at bedtime (Patient taking differently: Take two (1) in AM and four(4.0) tablets at bedtime ) zonisamide (ZONEGRAN) 100 mg capsule Take 3 capsules by mouth once daily. acetaminophen (TYLENOL) 325 mg tablet Take 650 mg by mouth every 6 hours as needed. (Patient not taking: Reported on 12/25/2020 ) FAMILY HISTORY Problem Relation Age of Onset Headache Mother Headache Maternal Grandfather Multiple Sclerosis Sister Seizures Maternal Aunt Traumatic epilepsy Social History Tobacco Use Smoking status: Never Smokeless tobacco: Never Vaping Use Vaping Use: Never used Substance Use Topics Alcohol use: No Drug use: No Review of Systems Constitutional: Negative for chills, diaphoresis, fatigue and fever. HENT: Negative for congestion and sore throat. Eyes: Negative for photophobia, pain, discharge, redness, itching and visual disturbance. Respiratory: Negative for cough. Left rib pain Cardiovascular: Negative for chest pain. Gastrointestinal: Negative for abdominal pain, anorexia, change in bowel habit, nausea and vomiting. Musculoskeletal: Negative for arthralgias, joint swelling, myalgias and neck pain. Skin: Negative for rash. Allergic/Immunologic: Negative for environmental allergies, food allergies and immunocompromised state. Neurological: Negative for dizziness, vertigo, facial asymmetry, weakness, numbness and headaches. Objective BP 112/86 Pulse 99 Temp 36.8 C (98.3 F) Resp 20 Wt 76.5 kg (168 lb 9.6 oz) LMP 08/05/2021 SpO2 98% BMI 30.84 kg/m Physical Exam Vitals and nursing note reviewed. Constitutional: General: She is not in acute distress. Appearance: Normal appearance. She is normal weight. She is not ill-appearing, toxic-appearing or diaphoretic. HENT: Head: Normocephalic and atraumatic. Right Ear: Ear canal and external ear normal. Left Ear: Ear canal and external ear normal. Nose: Nose normal. No congestion or rhinorrhea. Mouth/Throat: Mouth: Mucous membranes are moist. Pharynx: No oropharyngeal exudate or posterior oropharyngeal erythema. Eyes: General: Right eye: No discharge. Left eye: No discharge. Extraocular Movements: Extraocular movements intact. Conjunctiva/sclera: Conjunctivae normal. Pupils: Pupils are equal, round, and reactive to light. Cardiovascular: Rate and Rhythm: Normal rate and regular rhythm. Pulses: Normal pulses. Heart sounds: Normal heart sounds. No murmur heard. No friction rub. Pulmonary: Effort: Pulmonary effort is normal. No respiratory distress. Breath sounds: Normal breath sounds. No stridor. No wheezing, rhonchi or rales. Comments: Left ribs 5, 6, and 7 with TTP Pain worse with deep breath No flail chest. Lungs CTA Chest: Chest wall: No tenderness. Abdominal: General: Abdomen is flat. There is no distension. Palpations: Abdomen is soft. There is no mass. Tenderness: There is no abdominal tenderness. There is no right CVA tenderness, left CVA tenderness, guarding or rebound. Hernia: No hernia is present. Musculoskeletal: General: No swelling, tenderness, deformity or signs of injury. Normal range of motion. Cervical back: Normal range of motion and neck supple. No rigidity. Right lower leg: No edema. Left lower leg: No edema. Lymphadenopathy: Cervical: No cervical adenopathy. Skin: General: Skin is warm and dry. Coloration: Skin is not jaundiced or pale. Findings: No bruising, erythema, lesion or rash. Comments: Left mid flank region with 4 cm irregular burns paiute like ecchymosis Neurological: General: No focal deficit present. Mental Status: She is alert and oriented to person, place, and time. Cranial Nerves: No cranial nerve deficit. Sensory: No sensory deficit. Motor: No weakness. Coordination: Coordination normal. Gait: Gait normal. Psychiatric: Mood and Affect: Mood normal. Behavior: Behavior normal. Thought Content: Thought content normal. Judgment: Judgment normal. Assessment and Plan ASSESSMENT/PLAN: 1. Rib pain - ICD9: 786.50, ICD10: R07.81 (primary diagnosis) Atypical chest pain, symptoms are not consistent with cardiac ischemia due to pleuritic nature of pain, localization of the pain, and recent injury possible etiology include Costochondritis/chest wall pain, musculoskeletal, and Pleurisy - Chest X-ray today. My reading: normal, no signs of acute disease. Discussed my reading with patient. Radiologist report to follow. - Oxygen saturation 98% - Follow up 1 days - XR RIBS/CHEST 3V AP RIB/OBLS/CXR LEFT-The lungs are clear. There is no pleural effusion or pneumothorax. Right Port-A-Cath is in place with the tip at the SVC/right atrial junction. The cardiomediastinal silhouette is within limits of normal. Osseous structures are intact. There is no evidence of displaced left rib fracture. 2. Injury of abdomen, initial encounter - ICD9: 868.00, ICD10: S39.91XA Small ecchymotic area mid flank No red flags Supportive measures - UA DIP, URINE (POC) 3. Microscopic hematuria - ICD9: 599.72, ICD10: R31.29 Noted on urine dip Patient aware, and will follow up on this when she follows up with PCP Louise Soriano APRN.PLATFORM MATERIAL HANDLING SUPERVISOR documented in this encounterMans[facility]08-22-2022 History of Present illness Narrative* Alyx Leong RT(R) - 12/22/2021 7:00 PM EDT Radiology Service Progress Note PATIENT NAME: Doug Flanagan DATE OF SERVICE: December 22, 2021 TIME: 7:02 PM PATIENT IDENTITY VERIFICATION COMPLETED USING TWO (2) IDENTIFIERS: Name and Date of confirmedby patient verbally. FALL SCREENING: Has the patient had 2 falls in the last year or 1 fall with injury or currently using an Ambulatory Assistive Device (Walker, Cane, Wheelchair, Crutches, etc.)? No PATIENT GENDER DATA: Female. status: : No status: NO. PATIENT RELEVANT IMPLANT DATA REVIEWED: Not Applicable RADIOLOGY DEPARTMENT: General X-ray: Exam(s) Completed: Rib X-Ray: Left PERIPHERAL IV DATA: Not applicable SIGNED BY: RT Gema(R) December 22, 2021 7:02 PM documented in this encounterMansfield Hospital08-01-2022 Miscellaneous Notes* Telephone Encounter - Maya Puente APRN.CNP - 12/01/2021 7:09 PM EDT Notified of ultrasound results. Neg for dvt, pos for thrombophlebitis. warm compresses and nsaids discussed(if she is permitted to take). Elevate at night. Will start atb. F/u with pcp for continued s/s. Urgent f/u for worsening s/s. documented in this encounterMansfield Hospital08-01-2022 Miscellaneous Notes* Telephone Encounter - Colette Mtz LPN - 12/01/2021 3:15 PM EDT The ultrasound order is incorrect for [place]. They do not have a vascular lab and so order needs written for radiology only. Patient's appointment is at 4pm. documented in this encounterMansfield Hospital08-01-2022 History of Present illness Narrative* Maya Puente APRN.ROLF - 12/01/2021 2:53 PM EDT Images from the original note were not included. Subjective HPI HPI Doug Flanagan is a 31 year old female who presents today for CC of left lower leg injury, fell 5days ago, swelling/pain worsening. Has tried otc medication for relief. Symptoms are worsened by walking, rom, touching the area. Risk factors currently on eliquis for dvt. Denies cp/sob. 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 escitalopram oxalate (LEXAPRO) 10 mg tablet Take 10 mg by mouth once daily. apixaban (ELIQUIS) 5 mg tab(s) Take 5 mg by mouth twice daily. hydrOXYzine HCl (ATARAX) 50 mg tablet Take 50 mg by mouth daily at bedtime. rOPINIRole (REQUIP) 0.5 mg tablet take 1 tablet by mouth 1-3 HOURS PRIOR TO BEDTIME OXcarbazepine (TRILEPTAL) 150 mg tablet Take 150 mg by mouth daily at bedtime. LORazepam (ATIVAN) 1 mg tablet take 1 tablet by mouth if needed for SEIZURE GERATER THAN 5 MINUTES DIRECTED (FOR 30 DAYS) eculizumab (SOLIRIS INTRAVENOUS) Inject intravenously. levonorgestrel (MIRENA) 20 mcg/24 hours (5 yrs) 52 mg IUD 1 Each by INTRAUTERINE route one time only. lamoTRIgine ER (LAMICTAL XR) 100 mg 24 hr tablet Take two (2.0) in AM and four(4.0) tablets at bedtime zonisamide (ZONEGRAN) 100 mg capsule Take 3 capsules by mouth once daily. acetaminophen (TYLENOL) 325 mg tablet Take 650 mg by mouth every 6 hours as needed. FAMILY HISTORY Problem Relation Age of Onset Headache Mother Headache Maternal Grandfather Multiple Sclerosis Sister Seizures Maternal Aunt Traumatic epilepsy Social History Tobacco Use Smoking status: Never Smoker Smokeless tobacco: Never Used Vaping Use Vaping Use: Never used Substance Use Topics Alcohol use: No Drug use: No ROS Objective Blood pressure 124/88, pulse 100, temperature 36.7 C (98 F), resp. rate 21, weight 74.8 kg (165 lb), last menstrual period 08/05/2021, SpO2 99 %. Physical Exam Constitutional: General: She is not in acute distress. Appearance: She is not toxic-appearing or diaphoretic. HENT: Head: Normocephalic and atraumatic. Cardiovascular: Pulses: Dorsalis pedis pulses are 2+ on the left side. Posterior tibial pulses are 2+ on the left side. Pulmonary: Effort: Pulmonary effort is normal. No accessory muscle usage or respiratory distress. Musculoskeletal: Legs: Neurological: Mental Status: She is alert and oriented to person, place, and time. ASSESSMENT/PLAN: 1. Acute pain of left lower extremity - ICD9: 729.5, ICD10: M79.605 (primary diagnosis) Xray negative. - XR FOOT GENERAL 3V AP/LAT/OBL LEFT IMPRESSION: No radiographic evidence of acute osseous injury Dictated by : ROOSEVELT GREENWOOD MD - XR TIBIA FIBULA 2V AP/LAT LEFT IMPRESSION: No radiographic evidence of acute osseous injury Dictated by : ROOSEVELT GREENWOOD MD - US DVT LOWER LT IMPRESSION: Negative study for proximal DVT in the left lower extremity. Negative limited study for calf DVT in the left lower extremity. The distal calf veins were not visualized. superficial thrombophlebitis in the imaged segments of the left lower extremity. Dictated by : BEAN CEE MD 2. Leg abrasion, left, initial encounter - ICD9: 916.0, ICD10: S80.812A Cover for infection. F/u for continued/worsening s/s. - DOXYCYCLINE MONOHYDRATE 100 MG TABLET Agrees to plan Maya Puente APRN.ROLF documented in this encounterMansfield Hospital06-22-2022 Miscellaneous Notes* Telephone Encounter - Sarah Pop MD - 10/22/2021 1:16 PM EDT Called pt to discuss pathology results. Will scan results into chart. She had Paragard IUD removal,cervical CKC, ECC, Mirena IUD placement. Pathology shows moderate to severe squamous dysplasia withfocal changes noted at the lateral margin, negative ECC. Questions answered regarding surgery and pathology. She is doing well and has some coffee ground like discharge. To come in for 4-6 week IUD check, and in 6 months for colposcopy with cotesting. Please assist in scheduling * Telephone Encounter - Lesly Deras RN - 10/22/2021 9:06 AM EDT Her appointment is today at 2 PM. Would you like her reschedule or offer a virtual visit instead? documented in this encounterMansfield Hospital06-16-2022 Miscellaneous Notes* Telephone Encounter - Sarah Pop MD - 10/16/2021 11:29 AM EDT Noted thank you * Telephone Encounter - Lesly Deras RN - 10/16/2021 10:23 AM EDT Patient called to give SW an update regarding her Eliquis. She spoke with her PCP office. Her PCP retired and so she does not officially have a PCP. She has made their office, neurologist, [facility], and now our office that she stopped her Eliquis on Saturday 10/14 for her upcoming surgery on Wednesday, 10/17. 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 Cervix, 3:00, biopsy: - High-grade squamous intraepithelial lesion (LLOYD-2). B. Cervix, 8:00, biopsy: - Benign squamous mucosa. C. Endocervix, curettage: - A detached fragment of dysplastic squamous epithelium, favor high-grade squamous intraepithelial lesion (LLOYD-2). SOCIAL HISTORY: Social History Tobacco Use Smoking status: Never Smoker Smokeless tobacco: Never Used Vaping Use Vaping Use: Never used Substance Use Topics Alcohol use: No Drug use: No ALLERGIES Allergen Reactions Dilantin [Phenytoin] Mental Status Change Hallucination, vomiting Keppra [Levetiracet* Mental Status Change, Other: See Comments Hallucinations, suicidal thoughts Penicillins Rash Current Outpatient Medications on File Prior to Visit Medication Sig diazePAM (VALTOCO) 10 mg/spray (0.1 mL) nasal spray as directed. escitalopram oxalate (LEXAPRO) 10 mg tablet Take 10 mg by mouth once daily. apixaban (ELIQUIS) 5 mg tab(s) Take 5 mg by mouth twice daily. hydrOXYzine HCl (ATARAX) 50 mg tablet Take 50 mg by mouth daily at bedtime. rOPINIRole (REQUIP) 0.5 mg tablet take 1 tablet by mouth 1-3 HOURS PRIOR TO BEDTIME OXcarbazepine (TRILEPTAL) 150 mg tablet Take 150 mg by mouth daily at bedtime. LORazepam (ATIVAN) 1 mg tablet take 1 tablet by mouth if needed for SEIZURE GERATER THAN 5 MINUTES DIRECTED (FOR 30 DAYS) eculizumab (SOLIRIS INTRAVENOUS) Inject intravenously. levonorgestrel (MIRENA) 20 mcg/24 hours (5 yrs) 52 mg IUD 1 Each by INTRAUTERINE route one time only. lamoTRIgine ER (LAMICTAL XR) 100 mg 24 hr tablet Take two (2.0) in AM and four(4.0) tablets at bedtime (Patient taking differently: Take two (1) in AM and four(4.0) tablets at bedtime ) zonisamide (ZONEGRAN) 100 mg capsule Take 3 capsules by mouth once daily. acetaminophen (TYLENOL) 325 mg tablet Take 650 mg by mouth every 6 hours as needed. (Patient not taking: Reported on 12/25/2020 ) No current facility-administered medications on file prior to visit. OBJECTIVE: VITALS: BP 104/74 Pulse 82 Resp 16 Ht 5' 2 (1.575 m) Wt 156 lb 9.6 oz (71 kg) LMP 08/05/2021 BMI 28.64 kg/m HEENT: Normocephalic, atraumatic, Mucus membranes moist without lesions. NECK: Soft and Supple. No adenopathy , thyromegaly or bruits. SKIN: No lesions. CHEST: Clear to auscultation. No wheezes or rales. Good air exchange. HEART: Regular rate and rhythm No S3 or S4. No gallops or rubs. BACK: Nontender with no CVA tenderness. ABDOMEN: Soft, non-tender, non-distended, no masses, no hepatosplenomegaly. LOWER EXTREMITIES: There was no pitting edema, no palpable cords and no skin changes. ASSESSMENT: CIN2, positive ECC PLAN: 1) Discussed cervical cold knife conization, endocervical curettage, removal and reinsertion of intrauterine device. Discussed option for LEEP with top hat in office. Patient currently on Eliquis and states blood clot was from port placement - no DVT/PE outside of port placement. No history of bleeding or clotting disorders. She will contact her PCP for medical clearance and plan with Eliquis. Had clearance from neuro for surgery - they are okay with MAC anesthesia, but she is to not havegeneral anesthesia. Discussed associated risks with cervical CKC, and she understands risks after this surgery and does not plan for future pregnancies. The rationale for the proposed surger y was discussed in addition to risks, benefits, and alternatives. General pre- and post-operative care was reviewed. Questions were answered. After discussion, the patient indicated a desire to proceed with the planned surgery. Sarah Pop DO Medical Decision Making: Problems: Moderate: 1+ chronic illnesses with change Risk: Moderate: Decision on minor surgery w/ risk factors Medical Decision Making Level: 4 - Moderate documented in this encounterMansfield Hospital05-02-2022 History of Present illness Narrative* Sarah Pop MD - 09/01/2021 10:21 AM EDT Doug Flanagan is a 31 year old female who presents to discuss colposcopy results. Also noted irregular bleeding and pelvic pain today. HPI: Bleeding has been irregular over the last 3 months with the IUD. IUD in place for 3 years. HadCBC, TSH, pelvic US as noted below with CNM. She also notes pelvic pain that she has had for months. GC/CT, BV/yeast, pelvic US completed for CNM. Today she would like to discuss colposcopy results and management options moving forward. She does not desire any more children in the future. She states she is certain she is done childbearing. H/o LEEP in the past. H/o myasthenia gravis and seeing neurology for this - she states her neurologist is okay with MAC anesthesia but not general anesthesia, and she sees him tomorrow and will mention recommendation for cervical CKC and need for pre op clearance. Pelvic US: Impression Normal appearing retroverted uterus that measures 75 mm x 42 mm x 51 mm. The central endometrium complex measures 7.4 mm in combined thickness. No abnormal blood flow to suggest a polyp or focal endometrial pathology is observed within the endometrial complex. The contour of the endometrial cavity was normal on 3-D imaging. 3D rendering of the uterus confirms the proper location of the IUD within the endometrial cavity. Both ovaries are visualized and appear normal. No adnexal masses were observed. Positive slide sign of adnexa. There is no free fluid visualized in the peritoneal cavity. Recommendations Follow up as clinically indicated. FINAL DIAGNOSIS A. Cervix, 3:00, biopsy: - High-grade squamous intraepithelial lesion (LLOYD-2). B. Cervix, 8:00, biopsy: - Benign squamous mucosa. C. Endocervix, curettage: - A detached fragment of dysplastic squamous epithelium, favor high-grade squamous intraepithelial lesion (LLOYD-2). 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 escitalopram oxalate (LEXAPRO) 10 mg tablet Take 10 mg by mouth once daily. apixaban (ELIQUIS) 5 mg tab(s) Take 5 mg by mouth twice daily. hydrOXYzine HCl (ATARAX) 50 mg tablet Take 50 mg by mouth daily at bedtime. rOPINIRole (REQUIP) 0.5 mg tablet take 1 tablet by mouth 1-3 HOURS PRIOR TO BEDTIME OXcarbazepine (TRILEPTAL) 150 mg tablet Take 150 mg by mouth daily at bedtime. LORazepam (ATIVAN) 1 mg tablet take 1 tablet by mouth if needed for SEIZURE GERATER THAN 5 MINUTES DIRECTED (FOR 30 DAYS) eculizumab (SOLIRIS INTRAVENOUS) Inject intravenously. levonorgestrel (MIRENA) 20 mcg/24 hours (5 yrs) 52 mg IUD 1 Each by INTRAUTERINE route one time only. lamoTRIgine ER (LAMICTAL XR) 100 mg 24 hr tablet Take two (2.0) in AM and four(4.0) tablets at bedtime zonisamide (ZONEGRAN) 100 mg capsule Take 3 capsules by mouth once daily. acetaminophen (TYLENOL) 325 mg tablet Take 650 mg by mouth every 6 hours as needed. (Patient not taking: Reported on 12/25/2020 ) No current facility-administered medications for this visit. Allergies As of Date: 09/01/2021 Allergen Noted Reaction DILANTIN [PHENYTOIN] 10/14/2020 Mental Status Change KEPPRA [LEVETIRACETAM] 11/06/2013 Mental Status Change and Other: See Comments PENICILLINS 11/06/2013 Rash Fully Assessed 09/01/2021 REVIEW OF SYSTEMS Expanded ROS: N/A Allergies and current medication updated:Yes EXAM: BP 100/70 Wt 150 lb 3.2 oz (68.1kg) LMP 08/05/2021 GENERAL: pleasant, female in no apparent distress HEENT: Normocephalic, atraumatic, mucus membranes moist and no lesions NECK: full range of motion DERMATOLOGY: Normal, without lesions, non-icteric and non-hirsute CHEST: Normal inspiratory effort NEURO: exam grossly non-focal EXTREMITIES: normal ASSESSMENT AND PLAN: Encounter Diagnosis ICD-10-CM 1. LLOYD II (cervical intraepithelial neoplasia II) N87.1 2. Cervical high risk human papillomavirus (HPV) DNA test positive R87.810 Discussed high grade dysplasia on biopsy and positive ECC. Given this and that she does not desire again in the future, recommend cervical CKC in OR. Discussed option for LEEP with top hat in office under local if needed. She desires to proceed with recommended treatment and will get clearance from her neurologist. She is going to be evaluated by her PCP for the pelvic pain as well. Recommend consult to pelvic pain clinic after workup by PCP if etiology of pain not identified. Discussed option for having IUD removed and replaced at time of surgery, so IUD strings are identifiable when it comes time for removal in future. Will work on scheduling. Needs clearance from neuro and anesthesia consultation. Sarah Pop DO Medical Decision Making: Problems: Low: 2+ self-limited or minor problems Moderate: 1+ chronic illnesses with change Data: Unique test result(s) reviewed: 1 Risk: Moderate: Moderate risk from testing/treatment Medical Decision Making Level: 4 - Moderate documented in this encounterMansfield Hospital04-27-2022 Miscellaneous Notes* Telephone Encounter - Sarah Pop MD - 08/27/2021 12:23 PM EDT Great thank you! Will discuss next week * Telephone Encounter - Karen Gomez RN - 08/27/2021 11:38 AM EDT Patient notified. She has myasthenia gravis and wanted provider to be aware prior to any anestheisawith surgery. Has questions regarding surgery. She was originally scheduled 09/01/21 with PATRICIA to remove IUD. Changed appointment to SW to remove IUD and discuss CKC. Surgery sheet to SW to start. Christiano MENDEZ * Telephone Encounter - Karen Gomez RN - 08/27/2021 11:38 AM EDT ----- Message from Sarah Pop MD sent at 08/27/2021 11:16 AM EDT ----- Please notify pt of high grade dysplasia. Recommend CKC in OR. Will work on scheduling a pre op to discuss further and surgery if she is ok with this documented in this encounterMansfield Hospital04-20-2022 History of Present illness Narrative* Sarah Pop MD - 08/20/2021 2:15 PM EDT Doug is a 31 year old who presents today for a colposcopy. The patient's last pap smear was ASCUSwith positive HPV from July 2021. Patient has a history of abnormal pap: Yes. The patient has had prior treatment: LEEP. test: negative UNIVERSAL PROTOCOL / SAFETY CHECKLIST Procedure to be Performed: Colposcopy Sign In: A Moment of CARE was completed. Personnel directly involved with the procedure wore the appropriate PPE (Personal Protective Equipment). Patient/Surrogate Stated/Verified: PATIENT VERIFIED(optional for EMERGENT procedures): Patient name, Date of , Relevant allergies and The intended procedure Time Out Communication: Intended patient and procedure match the source documents. Consent documented and matches the intended procedure. Sign Out: SIGN OUT (optional for EMERGENT procedures): All specimen containers correctly labeled. All instruments, equipment, possible retained foreign bodies accounted for. Post-procedure follow-up management communicated and Plan of Care Visit completed when applicable. PROCEDURE: EXTERNAL GENITALIA: Normal in appearance without lesions VAGINA: Normal in appearance without lesions CERVIX: Speculum placed in vagina and excellent visualization of cervix achieved. Cervix swabbed x 3 with 3% acetic acid solution. Cervix grossly normal. Squamocolumnar junction visualized. acetowhite changes noted 3 and 8 o'clock. BIOPSY: Done at 3:00 and 8:00 ECC: done HEMOSTASIS: Obtained with silver nitrate and pressure Procedure Summary: Patient tolerated procedure well and colposcopy was adequate. ASSESSMENT: HPV effect PLAN: Specimens labeled and sent to Pathology. Will notify patient of results in 1-2 weeks. Post-procedure instructions reviewed and written material given to the patient. Sarah Pop DO documented in this encounterMansfield Hospital04-15-2022 Miscellaneous Notes* Telephone Encounter - Catie Martinez RN - 08/15/2021 10:46 AM EDT Spoke with Doug, she advised that she is currently in the emergency room, waiting to be seen. Catie Martinez RN * Telephone Encounter - Tevin Malcolm MD - 08/15/2021 10:36 AM EDT I believe the patient is currently on Eliquis. This is appropriate. We will have her schedule a follow-up appointment with her vascular surgeon. * Telephone Encounter - Catie Martinez RN - 08/15/2021 7:44 AM EDT Left voicemail for Doug ([phone]) to please be evaluated at the emergency room as soon as possible. Also sent a response to her [employer] message advising the same. Catie Martinez RN documented in this encounterMansfield Hospital04-13-2022 Miscellaneous Notes* Telephone Encounter - Sarah Pop MD - 2021 7:57 AM EDT I am not sure about billing, but I am fine to do both at her appointment for colposcopy so she doesnot have to come back a few days after thanks * Telephone Encounter - Katty Carson LPN - 08/12/2021 8:56 AM EDT Can patient had IUD removed at Colposcopy appointment? documented in this encounterMansfield Hospital03-24-2022 History of Present illness Narrative* Louise Flanagan APRN.CAROLYNN - 07/24/2021 3:46 PM EDT DISTANCE HEALTH VISIT This Team Access Model visit is a virtual encounter. It required patient- provider interaction for the medical decision making as documented below. Seen on 07/16 for menses that have become irregular in the last month. 07/18/21 urine culture positive for e coli and treated with macrobid. LMP 07/05/21. Had menses for a week, then few days like peeing blood spotting for 4 days, then normal menses again. Started this on 06/19/21. Had UTI 2 weeks agoand started Macrobid. Continued pelvic pain, and rating 7/10. Unable to get resolution. Tampons were not saturated and did not have a lot of blood on it. Pain is in vagina and into back. No longer blood in toilet. Feels like someone is stabbing me. Egg smell is gone but pain is still present. HISTORY REVIEWED (electronic chart updated): - medical history - medications - allergies REVIEW OF SYSTEMS: GENERAL: feeling well without fatigue, no recent change in weight PHYSICAL EXAMINATION: VIDEO EXAM: (if done, performed via video enabled technology) GENERAL: alert and appropriate, in no distress, well-hydrated, well nourished and happy, smiling, interactive CHEST: equal chest rise with normal respiratory effort ASSESSMENT/Plan: 1. Pelvic pain in female - ICD9: 625.9, ICD10: R10.2 (primary diagnosis) - REMOVE INTRAUTERINE DEVICE - INSERT INTRAUTERINE DEVICE - TRAMADOL 50 MG TABLET PID will treat as PID at this time due to pain and see if this gives resolution. doxy, flagyl, rocepin injection A single intramuscular dose of a long-acting cephalosporin plus doxycycline (100 mg orally twice daily for 14 days) plus metronidazole (500 mg orally twice daily for 14 days) 2. Encounter for IUD removal - ICD9: V25.12, ICD10: Z30.432 - REMOVE INTRAUTERINE DEVICE - INSERT INTRAUTERINE DEVICE 3. Acute cystitis with hematuria - ICD9: 595.0, ICD10: N30.01 4. PID (acute pelvic inflammatory disease) - ICD9: 614.3, ICD10: N73.0 Had to use non hormonal, remove pargard and insert mirena. Ask if any concerns with hormonal contraception. Previously unable to use hormonal contraception due to [employer], no longer taking this medication. Louise Flanagan APRN.CNM I spent a total of 30 minutes on the date of the service which included preparing to see the patient, [id number] patient care, completing clinical documentation, obtaining and/or reviewing separately obtained history, performing a medically appropriate examination, counseling and educating the pat ient/family/caregiver and ordering medications, tests, or procedures. 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 documented as of this encounter (statuses as of 08/15/2021) [address]15-2014 History of Past illness Narrative* Problem Noted Date Resolved Date 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 documented as of this encounter (statuses as of 08/20/2021) [address]15-2014 History of Past illness Narrative* Problem Noted Date Resolved Date 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 documented as of this encounter (statuses as of 08/27/2021) [address]15-2014 History of Past illness Narrative* Problem Noted Date Resolved Date 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 documented as of this encounter (statuses as of 09/01/2021) [address]15-2014 History of Past illness Narrative* Problem Noted Date Resolved Date 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 documented as of this encounter (statuses as of 09/01/2021) [address]15-2014 History of Past illness Narrative* Problem Noted Date Resolved Date 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 documented as of this encounter (statuses as of 09/02/2021) [address]15-2014 History of Past illness Narrative* Problem Noted Date Resolved Date 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 documented as of this encounter (statuses as of 10/03/2021) [address]15-2014 History of Past illness Narrative* Problem Noted Date Resolved Date 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 documented as of this encounter (statuses as of 10/16/2021) [address]15-2014 History of Past illness Narrative* Problem Noted Date Resolved Date 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 documented as of this encounter (statuses as of 10/22/2021) [address]15-2014 History of Past illness Narrative* Problem Noted Date Resolved Date 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 documented as of this encounter (statuses as of 12/01/2021) [address]15-2014 History of Past illness Narrative* Problem Noted Date Resolved Date 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 documented as of this encounter (statuses as of 12/01/2021) [address]15-2014 History of Past illness Narrative* Problem Noted Date Resolved Date 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 documented as of this encounter (statuses as of 12/23/2021) [address]15-2014 History of Past illness Narrative* Problem Noted Date Resolved Date 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 documented as of this encounter (statuses as of 12/24/2021) [address]15-2014 History of Past illness Narrative* Problem Noted Date Resolved Date 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 documented as of this encounter (statuses as of 02/23/2022) [address]15-2014 History of Past illness Narrative* Problem Noted Date Resolved Date 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 documented as of this encounter (statuses as of 03/27/2022) [address]15-2014 History of Past illness Narrative* Problem Noted Date Resolved Date 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 documented as of this encounter (statuses as of 04/01/2022) [address]15-2014 History of Past illness Narrative* Problem Noted Date Resolved Date 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 documented as of this encounter (statuses as of 04/06/2022) [address]15-2014 History of Past illness Narrative* Problem Noted Date Resolved Date 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 documented as of this encounter (statuses as of 04/06/2022) [address]15-2014 History of Past illness Narrative* Problem Noted Date Resolved Date 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 documented as of this encounter (statuses as of 05/05/2022) [address]15-2014 History of Past illness Narrative* Problem Noted Date Resolved Date 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 documented as of this encounter (statuses as of 07/12/2022) [address]15-2014 History of Past illness Narrative* Problem Noted Date Resolved Date 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 documented as of this encounter (statuses as of 07/17/2022) [facility] note* Diagnosis Pelvic pain in female- Primary Unspecified symptom associated with female genital organs Encounter for IUD removal Encounter for removal of intrauterine contraceptive device Acute cystitis with hematuria Acute cystitis PID (acute pelvic inflammatory disease) Acute parametritis and pelvic cellulitis documented in this encounter [facility] noteNo assessment information availableWAultman [facility] Work Phone: evaluation note* Diagnosis ASCUS with positive high risk HPV cervical- Primary Cervical high risk human papillomavirus (HPV) DNA test positive documented in this encounter [facility] note* Diagnosis LLOYD II (cervical intraepithelial neoplasia II)- Primary Moderate dysplasia of cervix Cervical high risk human papillomavirus (HPV) DNA test positive Pelvic pain in female Unspecified symptom associated with female genital organs DUB (dysfunctional uterine bleeding) Other disorder of menstruation and other abnormal bleeding from female genital tract IUD (intrauterine device) in place Presence of intrauterine contraceptive device [facility] Diagnosis Pre-op exam- Primary Preoperative examination, unspecified 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 documented in this encounter [facility] note* Diagnosis Onset Date Resolution Status LLOYD II (cervical intraepithelial neoplasia II) [facility] Work Phone: evaluation note* Diagnosis Acute pain of left lower extremity- Primary Leg abrasion, left, initial encounter [facility]* Diagnosis Rib pain- Primary Chest pain, unspecified Injury of abdomen, initial encounter Microscopic hematuria [facility]* Diagnosis Procedure not carried out- Primary Procedure not carried out for other reasons [facility]* Diagnosis Acute constipation- Primary Unspecified constipation Generalized abdominal pain Abdominal pain, generalized documented in this encounter [facility] note* Diagnosis Generalized abdominal pain- Primary Abdominal pain, generalized Change in bowel habits Other symptoms involving digestive system [facility]* Diagnosis LLOYD II (cervical intraepithelial neoplasia II)- Primary Moderate dysplasia of cervix Cervical high risk human papillomavirus (HPV) DNA test positive Cervical cancer screening Screening for malignant neoplasm of the cervix Special screening examination for human papillomavirus (HPV) History of cervical dysplasia Personal history of cervical dysplasia [facility]* Diagnosis URI, acute- Primary Acute upper respiratory infections of unspecified site documented in this encounter [facility] note* Diagnosis Flank pain- Primary Abdominal pain, unspecified site documented in this encounter [facility] note* Diagnosis MG (myasthenia gravis) (HCC) Myasthenia gravis without exacerbation Myasthenia gravis with (acute) exacerbation (HCC) documented in this encounter [facility] note* Diagnosis Myasthenic crisis (HCC)- Primary Other specified myoneural disorders Myasthenic crisis (HCC) Other specified myoneural disorders 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 depressed mood documented in this encounter [facility] note* Diagnosis Myasthenia gravis- Primary Myasthenia gravis without exacerbation Medication management Encounter for other specified aftercare [facility] Diagnosis Myasthenia gravis- Primary Myasthenia gravis without exacerbation Breakthrough seizure Unspecified epilepsy with intractable epilepsy Seizures Other convulsions Breakthrough seizure Unspecified epilepsy with intractable epilepsy [facility] Diagnosis Myasthenia gravis- Primary Myasthenia gravis without exacerbation Breakthrough seizure Unspecified epilepsy with intractable epilepsy Seizures Other convulsions Breakthrough seizure Unspecified epilepsy with intractable epilepsy [facility] Diagnosis Breakthrough seizure Unspecified epilepsy with intractable [facility] MG (myasthenia gravis)- Primary Myasthenia gravis without exacerbation [facility] Diagnosis MG (myasthenia gravis)- Primary Myasthenia gravis without exacerbation [facility]* Diagnosis MG (myasthenia gravis)- Primary Myasthenia gravis without exacerbation [facility]* Diagnosis Localization-related (focal) (partial) idiopathic epilepsy and epileptic syndromes with seizures of localized onset, intractable, without status epilepticus- Primary [facility] Diagnosis Sore throat- Primary Acute pharyngitis Otalgia of right ear Otalgia, unspecified [facility]* Diagnosis Acute constipation Unspecified constipation Generalized abdominal pain Abdominal pain, generalized [facility]* Diagnosis Generalized abdominal pain Abdominal pain, generalized Change in bowel habits Other symptoms involving digestive system [facility]* Diagnosis Rib pain Chest pain, unspecified [facility]* Diagnosis Localization-related (focal) (partial) idiopathic epilepsy and epileptic syndromes with seizures of localized onset, intractable, without status epilepticus [facility] instructionsWA[facility] Work Phone: Hospital Discharge instructions* Attachments The following attachments cannot be sent through Care Everywhere. * Central Line Catheter Discharge Instructions ([place]) [facility] Additional Instructions Labs stable urine negative for infection. Continue your seizure medications. Call Dr. Gilmore's office on Wednesday and keep your scheduled follow-up appointment. Return if worsening symptoms.[facility] Work Phone: Hospital Discharge instructionsAmbulatory Orders* Nutrition Referral Location: [facility] Work Phone: Instructions* Name Dates Details How to access health informa tion online Indication:BMI 22.0-22.9, adult Start:19-Jul-2019 Instruction Type:Patient Education How to access health informa tion online - Detail Indication:BMI 22.0-22.9, adult Start:19-Jul-2019 Instruction Type:Patient Education Patient Instructions Indication:BMI 22.0-22.9, adult Start:19-Jul-2019 Instruction Type:Provider Instructions for Treatment How to access health informa tion online Indication:BMI 22.0-22.9, adult Start:17-May-2019 Instruction Type:Patient Education How to access health informa tion online - Detail Indication:BMI 22.0-22.9, adult Start:17-May-2019 Instruction Type:Patient Education Patient Instructions Indication:BMI 22.0-22.9, adult Start:17-May-2019 Instruction Type:Provider Instructions for Treatment How to access health informa tion online Indication:Non-smoker Start:29-Mar-2019 Instruction Type:Patient Education How to access health informa tion online - Detail Indication:Non-smoker Start:29-Mar-2019 Instruction Type:Patient Education Patient Instructions Indication:Non-smoker Start:29-Mar-2019 Instruction Type:Provider Instructions for Treatment How to access health informa tion online Indication:Non-smoker Start:08-Mar-2019 Instruction Type:Patient Education How to access health informa tion online - Detail Indication:Non-smoker Start:08-Mar-2019 Instruction Type:Patient Education Patient Instructions Indication:Non-smoker Start:08-Mar-2019 Instruction Type:Provider Instructions for Treatment How to access health informa tion online Indication:Insect bite Start:06-Dec-2018 Instruction Type:Patient Education How to access health informa tion online - Detail Indication:Insect bite Start:06-Dec-2018 Instruction Type:Patient Education Patient Instructions Indication:Insect bite Start:06-Dec-2018 Instruction Type:Provider Instructions for Treatment How to access health informa tion online Indication:BMI 22.0-22.9, adult Start:24-Oct-2018 Instruction Type:Patient Education How to access health informa tion online - Detail Indication:BMI 22.0-22.9, adult Start:24-Oct-2018 Instruction Type:Patient Education Patient Instructions Indication:BMI 22.0-22.9, adult Start:24-Oct-2018 Instruction Type:Provider Instructions for Treatment How to access health informa tion online Indication:Non-smoker Start:08-Mar-2018 Instruction Type:Patient Education How to access health informa tion online - Detail Indication:Non-smoker Start:08-Mar-2018 Instruction Type:Patient Education Patient Instructions Indication:Non-smoker Start:08-Mar-2018 Instruction Type:Provider Instructions for Treatment How to access health informa tion online Indication:Non-smoker Start:11-Feb-2018 Instruction Type:Patient Education How to access health informa tion online - Detail Indication:Non-smoker Start:11-Feb-2018 Instruction Type:Patient Education Patient Instructions Indication:Non-smoker Start:11-Feb-2018 Instruction Type:Provider Instructions for Treatment How to access health informa tion online Indication:Non-smoker Start:07-Feb-2018 Instruction Type:Patient Education How to access health informa tion online - Detail Indication:Non-smoker Start:07-Feb-2018 Instruction Type:Patient Education Patient Instructions Indication:Non-smoker Start:07-Feb-2018 Instruction Type:Provider Instructions for Treatment How to access health informa tion online Indication:Non-smoker Start:24-Jan-2018 Instruction Type:Patient Education How to access health informa tion online - Detail Indication:Non-smoker Start:24-Jan-2018 Instruction Type:Patient Education Patient Instructions Indication:Non-smoker Start:24-Jan-2018 Instruction Type:Provider Instructions for Treatment How to access health informa tion online Indication:BMI 23.0-23.9, adult Start:24-Dec-2017 Instruction Type:Patient Education How to access health informa tion online - Detail Indication:BMI 23.0-23.9, adult Start:24-Dec-2017 Instruction Type:Patient Education Patient Instructions Indication:BMI 23.0-23.9, adult Start:24-Dec-2017 Instruction Type:Provider Instructions for Treatment How to access health informa tion online Indication:Non-smoker Start:23-Dec-2017 Instruction Type:Patient Education How to access health informa tion online - Detail Indication:Non-smoker Start:23-Dec-2017 Instruction Type:Patient Education Patient Instructions Indication:Non-smoker Start:23-Dec-2017 Instruction Type:Provider Instructions for Treatment How to access health informa tion online Indication:Non-smoker Start:30-Nov-2017 Instruction Type:Patient Education How to access health informa tion online - Detail Indication:Non-smoker Start:30-Nov-2017 Instruction Type:Patient Education Patient Instructions Indication:Sinusitis, bacterial Start:30-Nov-2017 Instruction Type:Provider Instructions for Treatment How to access health informa tion online Indication:Non-smoker Start:03-Aug-2017 Instruction Type:Patient Education How to access health informa tion online - Detail Indication:Non-smoker Start:03-Aug-2017 Instruction Type:Patient Education Patient Instructions Indication:Non-smoker Start:03-Aug-2017 Instruction Type:Provider Instructions for Treatment How to access health informa tion online Indication:BMI 21.0-21.9, adult Start:31-May-2017 Instruction Type:Patient Education How to access health informa tion online - Detail Indication:BMI 21.0-21.9, adult Start:31-May-2017 Instruction Type:Patient Education Patient Instructions Indication:BMI 21.0-21.9, adult Start:31-May-2017 Instruction Type:Provider Instructions for Treatment How to access health informa tion online Indication:Mild asthma Start:02-Mar-2017 Instruction Type:Patient Education How to access health informa tion online - Detail Indication:Mild asthma Start:02-Mar-2017 Instruction Type:Patient Education Patient Instructions Indication:Mild asthma Start:02-Mar-2017 Instruction Type:Provider Instructions for Treatment How to access health informa tion online Indication:Sore throat Start:10-Feb-2017 Instruction Type:Patient Education How to access health informa tion online - Detail Indication:Sore throat Start:10-Feb-2017 Instruction Type:Patient Education Patient Instructions Indication:Sore throat Start:10-Feb-2017 Instruction Type:Provider Instructions for Treatment How to access health informa tion online Indication:Atypical migraine Start:10-Oct-2015 Instruction Type:Patient Education How to access health informa tion online - Detail Indication:Atypical migraine Start:10-Oct-2015 Instruction Type:Patient Education Patient Instructions Indication:Atypical migraine Start:10-Oct-2015 Instruction Type:Provider Instructions for Treatment How to access health informa tion online Indication:Atypical migraine Start:30-Aug-2015 Instruction Type:Patient Education How to access health informa tion online - Detail Indication:Atypical migraine Start:30-Aug-2015 Instruction Type:Patient Education Patient Instructions Indication:Atypical migraine Start:30-Aug-2015 Instruction Type:Provider Instructions for Treatment Patient Instructions Indication:Vitamin D deficiency Start:09-Aug-2015 Instruction Type:Provider Instructions for Treatment Patient Instructions Indication:Vitamin D deficiency Start:28-Jun-2015 Instruction Type:Provider Instructions for Treatment How to access health informa tion online Indication:Atypical migraine Start:31-May-2015 Instruction Type:Patient Education How to access health informa tion online - Detail Indication:Atypical migraine Start:31-May-2015 Instruction Type:Patient Education Patient Instructions Indication:Atypical migraine Start:31-May-2015 Instruction Type:Provider Instructions for Treatment Patient Instructions Indication:Pleurisy Start:26-Feb-2015 Instruction Type:Provider Instructions for Treatment [facility] Work Phone: Instructions* Name Dates Details How to access health informa tion online Indication:BMI 22.0-22.9, adult Start:19-Jul-2019 Instruction Type:Patient Education How to access health informa tion online - Detail Indication:BMI 22.0-22.9, adult Start:19-Jul-2019 Instruction Type:Patient Education Patient Instructions Indication:BMI 22.0-22.9, adult Start:19-Jul-2019 Instruction Type:Provider Instructions for Treatment How to access health informa tion online Indication:BMI 22.0-22.9, adult Start:17-May-2019 Instruction Type:Patient Education How to access health informa tion online - Detail Indication:BMI 22.0-22.9, adult Start:17-May-2019 Instruction Type:Patient Education Patient Instructions Indication:BMI 22.0-22.9, adult Start:17-May-2019 Instruction Type:Provider Instructions for Treatment How to access health informa tion online Indication:Non-smoker Start:29-Mar-2019 Instruction Type:Patient Education How to access health informa tion online - Detail Indication:Non-smoker Start:29-Mar-2019 Instruction Type:Patient Education Patient Instructions Indication:Non-smoker Start:29-Mar-2019 Instruction Type:Provider Instructions for Treatment How to access health informa tion online Indication:Non-smoker Start:08-Mar-2019 Instruction Type:Patient Education How to access health informa tion online - Detail Indication:Non-smoker Start:08-Mar-2019 Instruction Type:Patient Education Patient Instructions Indication:Non-smoker Start:08-Mar-2019 Instruction Type:Provider Instructions for Treatment How to access health informa tion online Indication:Insect bite Start:06-Dec-2018 Instruction Type:Patient Education How to access health informa tion online - Detail Indication:Insect bite Start:06-Dec-2018 Instruction Type:Patient Education Patient Instructions Indication:Insect bite Start:06-Dec-2018 Instruction Type:Provider Instructions for Treatment How to access health informa tion online Indication:BMI 22.0-22.9, adult Start:24-Oct-2018 Instruction Type:Patient Education How to access health informa tion online - Detail Indication:BMI 22.0-22.9, adult Start:24-Oct-2018 Instruction Type:Patient Education Patient Instructions Indication:BMI 22.0-22.9, adult Start:24-Oct-2018 Instruction Type:Provider Instructions for Treatment How to access health informa tion online Indication:Non-smoker Start:08-Mar-2018 Instruction Type:Patient Education How to access health informa tion online - Detail Indication:Non-smoker Start:08-Mar-2018 Instruction Type:Patient Education Patient Instructions Indication:Non-smoker Start:08-Mar-2018 Instruction Type:Provider Instructions for Treatment How to access health informa tion online Indication:Non-smoker Start:11-Feb-2018 Instruction Type:Patient Education How to access health informa tion online - Detail Indication:Non-smoker Start:11-Feb-2018 Instruction Type:Patient Education Patient Instructions Indication:Non-smoker Start:11-Feb-2018 Instruction Type:Provider Instructions for Treatment How to access health informa tion online Indication:Non-smoker Start:07-Feb-2018 Instruction Type:Patient Education How to access health informa tion online - Detail Indication:Non-smoker Start:07-Feb-2018 Instruction Type:Patient Education Patient Instructions Indication:Non-smoker Start:07-Feb-2018 Instruction Type:Provider Instructions for Treatment How to access health informa tion online Indication:Non-smoker Start:24-Jan-2018 Instruction Type:Patient Education How to access health informa tion online - Detail Indication:Non-smoker Start:24-Jan-2018 Instruction Type:Patient Education Patient Instructions Indication:Non-smoker Start:24-Jan-2018 Instruction Type:Provider Instructions for Treatment How to access health informa tion online Indication:BMI 23.0-23.9, adult Start:24-Dec-2017 Instruction Type:Patient Education How to access health informa tion online - Detail Indication:BMI 23.0-23.9, adult Start:24-Dec-2017 Instruction Type:Patient Education Patient Instructions Indication:BMI 23.0-23.9, adult Start:24-Dec-2017 Instruction Type:Provider Instructions for Treatment How to access health informa tion online Indication:Non-smoker Start:23-Dec-2017 Instruction Type:Patient Education How to access health informa tion online - Detail Indication:Non-smoker Start:23-Dec-2017 Instruction Type:Patient Education Patient Instructions Indication:Non-smoker Start:23-Dec-2017 Instruction Type:Provider Instructions for Treatment How to access health informa tion online Indication:Non-smoker Start:30-Nov-2017 Instruction Type:Patient Education How to access health informa tion online - Detail Indication:Non-smoker Start:30-Nov-2017 Instruction Type:Patient Education Patient Instructions Indication:Sinusitis, bacterial Start:30-Nov-2017 Instruction Type:Provider Instructions for Treatment How to access health informa tion online Indication:Non-smoker Start:03-Aug-2017 Instruction Type:Patient Education How to access health informa tion online - Detail Indication:Non-smoker Start:03-Aug-2017 Instruction Type:Patient Education Patient Instructions Indication:Non-smoker Start:03-Aug-2017 Instruction Type:Provider Instructions for Treatment How to access health informa tion online Indication:BMI 21.0-21.9, adult Start:31-May-2017 Instruction Type:Patient Education How to access health informa tion online - Detail Indication:BMI 21.0-21.9, adult Start:31-May-2017 Instruction Type:Patient Education Patient Instructions Indication:BMI 21.0-21.9, adult Start:31-May-2017 Instruction Type:Provider Instructions for Treatment How to access health informa tion online Indication:Mild asthma Start:02-Mar-2017 Instruction Type:Patient Education How to access health informa tion online - Detail Indication:Mild asthma Start:02-Mar-2017 Instruction Type:Patient Education Patient Instructions Indication:Mild asthma Start:02-Mar-2017 Instruction Type:Provider Instructions for Treatment How to access health informa tion online Indication:Sore throat Start:10-Feb-2017 Instruction Type:Patient Education How to access health informa tion online - Detail Indication:Sore throat Start:10-Feb-2017 Instruction Type:Patient Education Patient Instructions Indication:Sore throat Start:10-Feb-2017 Instruction Type:Provider Instructions for Treatment How to access health informa tion online Indication:Atypical migraine Start:10-Oct-2015 Instruction Type:Patient Education How to access health informa tion online - Detail Indication:Atypical migraine Start:10-Oct-2015 Instruction Type:Patient Education Patient Instructions Indication:Atypical migraine Start:10-Oct-2015 Instruction Type:Provider Instructions for Treatment How to access health informa tion online Indication:Atypical migraine Start:30-Aug-2015 Instruction Type:Patient Education How to access health informa tion online - Detail Indication:Atypical migraine Start:30-Aug-2015 Instruction Type:Patient Education Patient Instructions Indication:Atypical migraine Start:30-Aug-2015 Instruction Type:Provider Instructions for Treatment Patient Instructions Indication:Vitamin D deficiency Start:09-Aug-2015 Instruction Type:Provider Instructions for Treatment Patient Instructions Indication:Vitamin D deficiency Start:28-Jun-2015 Instruction Type:Provider Instructions for Treatment How to access health informa tion online Indication:Atypical migraine Start:31-May-2015 Instruction Type:Patient Education How to access health informa tion online - Detail Indication:Atypical migraine Start:31-May-2015 Instruction Type:Patient Education Patient Instructions Indication:Atypical migraine Start:31-May-2015 Instruction Type:Provider Instructions for Treatment Patient Instructions Indication:Pleurisy Start:26-Feb-2015 Instruction Type:Provider Instructions for Treatment [facility]; [facility] Work Phone: Instructions* Name Dates Details How to access health informa tion online Indication:BMI 22.0-22.9, adult Start:19-Jul-2019 Instruction Type:Patient Education How to access health informa tion online - Detail Indication:BMI 22.0-22.9, adult Start:19-Jul-2019 Instruction Type:Patient Education Patient Instructions Indication:BMI 22.0-22.9, adult Start:19-Jul-2019 Instruction Type:Provider Instructions for Treatment How to access health informa tion online Indication:BMI 22.0-22.9, adult Start:17-May-2019 Instruction Type:Patient Education How to access health informa tion online - Detail Indication:BMI 22.0-22.9, adult Start:17-May-2019 Instruction Type:Patient Education Patient Instructions Indication:BMI 22.0-22.9, adult Start:17-May-2019 Instruction Type:Provider Instructions for Treatment How to access health informa tion online Indication:Non-smoker Start:29-Mar-2019 Instruction Type:Patient Education How to access health informa tion online - Detail Indication:Non-smoker Start:29-Mar-2019 Instruction Type:Patient Education Patient Instructions Indication:Non-smoker Start:29-Mar-2019 Instruction Type:Provider Instructions for Treatment How to access health informa tion online Indication:Non-smoker Start:08-Mar-2019 Instruction Type:Patient Education How to access health informa tion online - Detail Indication:Non-smoker Start:08-Mar-2019 Instruction Type:Patient Education Patient Instructions Indication:Non-smoker Start:08-Mar-2019 Instruction Type:Provider Instructions for Treatment How to access health informa tion online Indication:Insect bite Start:06-Dec-2018 Instruction Type:Patient Education How to access health informa tion online - Detail Indication:Insect bite Start:06-Dec-2018 Instruction Type:Patient Education Patient Instructions Indication:Insect bite Start:06-Dec-2018 Instruction Type:Provider Instructions for Treatment How to access health informa tion online Indication:BMI 22.0-22.9, adult Start:24-Oct-2018 Instruction Type:Patient Education How to access health informa tion online - Detail Indication:BMI 22.0-22.9, adult Start:24-Oct-2018 Instruction Type:Patient Education Patient Instructions Indication:BMI 22.0-22.9, adult Start:24-Oct-2018 Instruction Type:Provider Instructions for Treatment How to access health informa tion online Indication:Non-smoker Start:08-Mar-2018 Instruction Type:Patient Education How to access health informa tion online - Detail Indication:Non-smoker Start:08-Mar-2018 Instruction Type:Patient Education Patient Instructions Indication:Non-smoker Start:08-Mar-2018 Instruction Type:Provider Instructions for Treatment How to access health informa tion online Indication:Non-smoker Start:11-Feb-2018 Instruction Type:Patient Education How to access health informa tion online - Detail Indication:Non-smoker Start:11-Feb-2018 Instruction Type:Patient Education Patient Instructions Indication:Non-smoker Start:11-Feb-2018 Instruction Type:Provider Instructions for Treatment How to access health informa tion online Indication:Non-smoker Start:07-Feb-2018 Instruction Type:Patient Education How to access health informa tion online - Detail Indication:Non-smoker Start:07-Feb-2018 Instruction Type:Patient Education Patient Instructions Indication:Non-smoker Start:07-Feb-2018 Instruction Type:Provider Instructions for Treatment How to access health informa tion online Indication:Non-smoker Start:24-Jan-2018 Instruction Type:Patient Education How to access health informa tion online - Detail Indication:Non-smoker Start:24-Jan-2018 Instruction Type:Patient Education Patient Instructions Indication:Non-smoker Start:24-Jan-2018 Instruction Type:Provider Instructions for Treatment How to access health informa tion online Indication:BMI 23.0-23.9, adult Start:24-Dec-2017 Instruction Type:Patient Education How to access health informa tion online - Detail Indication:BMI 23.0-23.9, adult Start:24-Dec-2017 Instruction Type:Patient Education Patient Instructions Indication:BMI 23.0-23.9, adult Start:24-Dec-2017 Instruction Type:Provider Instructions for Treatment How to access health informa tion online Indication:Non-smoker Start:23-Dec-2017 Instruction Type:Patient Education How to access health informa tion online - Detail Indication:Non-smoker Start:23-Dec-2017 Instruction Type:Patient Education Patient Instructions Indication:Non-smoker Start:23-Dec-2017 Instruction Type:Provider Instructions for Treatment How to access health informa tion online Indication:Non-smoker Start:30-Nov-2017 Instruction Type:Patient Education How to access health informa tion online - Detail Indication:Non-smoker Start:30-Nov-2017 Instruction Type:Patient Education Patient Instructions Indication:Sinusitis, bacterial Start:30-Nov-2017 Instruction Type:Provider Instructions for Treatment How to access health informa tion online Indication:Non-smoker Start:03-Aug-2017 Instruction Type:Patient Education How to access health informa tion online - Detail Indication:Non-smoker Start:03-Aug-2017 Instruction Type:Patient Education Patient Instructions Indication:Non-smoker Start:03-Aug-2017 Instruction Type:Provider Instructions for Treatment How to access health informa tion online Indication:BMI 21.0-21.9, adult Start:31-May-2017 Instruction Type:Patient Education How to access health informa tion online - Detail Indication:BMI 21.0-21.9, adult Start:31-May-2017 Instruction Type:Patient Education Patient Instructions Indication:BMI 21.0-21.9, adult Start:31-May-2017 Instruction Type:Provider Instructions for Treatment How to access health informa tion online Indication:Mild asthma Start:02-Mar-2017 Instruction Type:Patient Education How to access health informa tion online - Detail Indication:Mild asthma Start:02-Mar-2017 Instruction Type:Patient Education Patient Instructions Indication:Mild asthma Start:02-Mar-2017 Instruction Type:Provider Instructions for Treatment How to access health informa tion online Indication:Sore throat Start:10-Feb-2017 Instruction Type:Patient Education How to access health informa tion online - Detail Indication:Sore throat Start:10-Feb-2017 Instruction Type:Patient Education Patient Instructions Indication:Sore throat Start:10-Feb-2017 Instruction Type:Provider Instructions for Treatment How to access health informa tion online Indication:Atypical migraine Start:10-Oct-2015 Instruction Type:Patient Education How to access health informa tion online - Detail Indication:Atypical migraine Start:10-Oct-2015 Instruction Type:Patient Education Patient Instructions Indication:Atypical migraine Start:10-Oct-2015 Instruction Type:Provider Instructions for Treatment How to access health informa tion online Indication:Atypical migraine Start:30-Aug-2015 Instruction Type:Patient Education How to access health informa tion online - Detail Indication:Atypical migraine Start:30-Aug-2015 Instruction Type:Patient Education Patient Instructions Indication:Atypical migraine Start:30-Aug-2015 Instruction Type:Provider Instructions for Treatment Patient Instructions Indication:Vitamin D deficiency Start:09-Aug-2015 Instruction Type:Provider Instructions for Treatment Patient Instructions Indication:Vitamin D deficiency Start:28-Jun-2015 Instruction Type:Provider Instructions for Treatment How to access health informa tion online Indication:Atypical migraine Start:31-May-2015 Instruction Type:Patient Education How to access health informa tion online - Detail Indication:Atypical migraine Start:31-May-2015 Instruction Type:Patient Education Patient Instructions Indication:Atypical migraine Start:31-May-2015 Instruction Type:Provider Instructions for Treatment Patient Instructions Indication:Pleurisy Start:26-Feb-2015 Instruction Type:Provider Instructions for Treatment [facility]; [facility] Work Phone: Instructions* Name Dates Details How to access health informa tion online Indication:BMI 22.0-22.9, adult Start:19-Jul-2019 Instruction Type:Patient Education How to access health informa tion online - Detail Indication:BMI 22.0-22.9, adult Start:19-Jul-2019 Instruction Type:Patient Education Patient Instructions Indication:BMI 22.0-22.9, adult Start:19-Jul-2019 Instruction Type:Provider Instructions for Treatment How to access health informa tion online Indication:BMI 22.0-22.9, adult Start:17-May-2019 Instruction Type:Patient Education How to access health informa tion online - Detail Indication:BMI 22.0-22.9, adult Start:17-May-2019 Instruction Type:Patient Education Patient Instructions Indication:BMI 22.0-22.9, adult Start:17-May-2019 Instruction Type:Provider Instructions for Treatment How to access health informa tion online Indication:Non-smoker Start:29-Mar-2019 Instruction Type:Patient Education How to access health informa tion online - Detail Indication:Non-smoker Start:29-Mar-2019 Instruction Type:Patient Education Patient Instructions Indication:Non-smoker Start:29-Mar-2019 Instruction Type:Provider Instructions for Treatment How to access health informa tion online Indication:Non-smoker Start:08-Mar-2019 Instruction Type:Patient Education How to access health informa tion online - Detail Indication:Non-smoker Start:08-Mar-2019 Instruction Type:Patient Education Patient Instructions Indication:Non-smoker Start:08-Mar-2019 Instruction Type:Provider Instructions for Treatment How to access health informa tion online Indication:Insect bite Start:06-Dec-2018 Instruction Type:Patient Education How to access health informa tion online - Detail Indication:Insect bite Start:06-Dec-2018 Instruction Type:Patient Education Patient Instructions Indication:Insect bite Start:06-Dec-2018 Instruction Type:Provider Instructions for Treatment How to access health informa tion online Indication:BMI 22.0-22.9, adult Start:24-Oct-2018 Instruction Type:Patient Education How to access health informa tion online - Detail Indication:BMI 22.0-22.9, adult Start:24-Oct-2018 Instruction Type:Patient Education Patient Instructions Indication:BMI 22.0-22.9, adult Start:24-Oct-2018 Instruction Type:Provider Instructions for Treatment How to access health informa tion online Indication:Non-smoker Start:08-Mar-2018 Instruction Type:Patient Education How to access health informa tion online - Detail Indication:Non-smoker Start:08-Mar-2018 Instruction Type:Patient Education Patient Instructions Indication:Non-smoker Start:08-Mar-2018 Instruction Type:Provider Instructions for Treatment How to access health informa tion online Indication:Non-smoker Start:11-Feb-2018 Instruction Type:Patient Education How to access health informa tion online - Detail Indication:Non-smoker Start:11-Feb-2018 Instruction Type:Patient Education Patient Instructions Indication:Non-smoker Start:11-Feb-2018 Instruction Type:Provider Instructions for Treatment How to access health informa tion online Indication:Non-smoker Start:07-Feb-2018 Instruction Type:Patient Education How to access health informa tion online - Detail Indication:Non-smoker Start:07-Feb-2018 Instruction Type:Patient Education Patient Instructions Indication:Non-smoker Start:07-Feb-2018 Instruction Type:Provider Instructions for Treatment How to access health informa tion online Indication:Non-smoker Start:24-Jan-2018 Instruction Type:Patient Education How to access health informa tion online - Detail Indication:Non-smoker Start:24-Jan-2018 Instruction Type:Patient Education Patient Instructions Indication:Non-smoker Start:24-Jan-2018 Instruction Type:Provider Instructions for Treatment How to access health informa tion online Indication:BMI 23.0-23.9, adult Start:24-Dec-2017 Instruction Type:Patient Education How to access health informa tion online - Detail Indication:BMI 23.0-23.9, adult Start:24-Dec-2017 Instruction Type:Patient Education Patient Instructions Indication:BMI 23.0-23.9, adult Start:24-Dec-2017 Instruction Type:Provider Instructions for Treatment How to access health informa tion online Indication:Non-smoker Start:23-Dec-2017 Instruction Type:Patient Education How to access health informa tion online - Detail Indication:Non-smoker Start:23-Dec-2017 Instruction Type:Patient Education Patient Instructions Indication:Non-smoker Start:23-Dec-2017 Instruction Type:Provider Instructions for Treatment How to access health informa tion online Indication:Non-smoker Start:30-Nov-2017 Instruction Type:Patient Education How to access health informa tion online - Detail Indication:Non-smoker Start:30-Nov-2017 Instruction Type:Patient Education Patient Instructions Indication:Sinusitis, bacterial Start:30-Nov-2017 Instruction Type:Provider Instructions for Treatment How to access health informa tion online Indication:Non-smoker Start:03-Aug-2017 Instruction Type:Patient Education How to access health informa tion online - Detail Indication:Non-smoker Start:03-Aug-2017 Instruction Type:Patient Education Patient Instructions Indication:Non-smoker Start:03-Aug-2017 Instruction Type:Provider Instructions for Treatment How to access health informa tion online Indication:BMI 21.0-21.9, adult Start:31-May-2017 Instruction Type:Patient Education How to access health informa tion online - Detail Indication:BMI 21.0-21.9, adult Start:31-May-2017 Instruction Type:Patient Education Patient Instructions Indication:BMI 21.0-21.9, adult Start:31-May-2017 Instruction Type:Provider Instructions for Treatment How to access health informa tion online Indication:Mild asthma Start:02-Mar-2017 Instruction Type:Patient Education How to access health informa tion online - Detail Indication:Mild asthma Start:02-Mar-2017 Instruction Type:Patient Education Patient Instructions Indication:Mild asthma Start:02-Mar-2017 Instruction Type:Provider Instructions for Treatment How to access health informa tion online Indication:Sore throat Start:10-Feb-2017 Instruction Type:Patient Education How to access health informa tion online - Detail Indication:Sore throat Start:10-Feb-2017 Instruction Type:Patient Education Patient Instructions Indication:Sore throat Start:10-Feb-2017 Instruction Type:Provider Instructions for Treatment How to access health informa tion online Indication:Atypical migraine Start:10-Oct-2015 Instruction Type:Patient Education How to access health informa tion online - Detail Indication:Atypical migraine Start:10-Oct-2015 Instruction Type:Patient Education Patient Instructions Indication:Atypical migraine Start:10-Oct-2015 Instruction Type:Provider Instructions for Treatment How to access health informa tion online Indication:Atypical migraine Start:30-Aug-2015 Instruction Type:Patient Education How to access health informa tion online - Detail Indication:Atypical migraine Start:30-Aug-2015 Instruction Type:Patient Education Patient Instructions Indication:Atypical migraine Start:30-Aug-2015 Instruction Type:Provider Instructions for Treatment Patient Instructions Indication:Vitamin D deficiency Start:09-Aug-2015 Instruction Type:Provider Instructions for Treatment Patient Instructions Indication:Vitamin D deficiency Start:28-Jun-2015 Instruction Type:Provider Instructions for Treatment How to access health informa tion online Indication:Atypical migraine Start:31-May-2015 Instruction Type:Patient Education How to access health informa tion online - Detail Indication:Atypical migraine Start:31-May-2015 Instruction Type:Patient Education Patient Instructions Indication:Atypical migraine Start:31-May-2015 Instruction Type:Provider Instructions for Treatment Patient Instructions Indication:Pleurisy Start:26-Feb-2015 Instruction Type:Provider Instructions for Treatment [facility]; [facility] Work Phone: Instructions* Name Dates Details How to access health informa tion online Indication:BMI 22.0-22.9, adult Start:19-Jul-2019 Instruction Type:Patient Education How to access health informa tion online - Detail Indication:BMI 22.0-22.9, adult Start:19-Jul-2019 Instruction Type:Patient Education Patient Instructions Indication:BMI 22.0-22.9, adult Start:19-Jul-2019 Instruction Type:Provider Instructions for Treatment How to access health informa tion online Indication:BMI 22.0-22.9, adult Start:17-May-2019 Instruction Type:Patient Education How to access health informa tion online - Detail Indication:BMI 22.0-22.9, adult Start:17-May-2019 Instruction Type:Patient Education Patient Instructions Indication:BMI 22.0-22.9, adult Start:17-May-2019 Instruction Type:Provider Instructions for Treatment How to access health informa tion online Indication:Non-smoker Start:29-Mar-2019 Instruction Type:Patient Education How to access health informa tion online - Detail Indication:Non-smoker Start:29-Mar-2019 Instruction Type:Patient Education Patient Instructions Indication:Non-smoker Start:29-Mar-2019 Instruction Type:Provider Instructions for Treatment How to access health informa tion online Indication:Non-smoker Start:08-Mar-2019 Instruction Type:Patient Education How to access health informa tion online - Detail Indication:Non-smoker Start:08-Mar-2019 Instruction Type:Patient Education Patient Instructions Indication:Non-smoker Start:08-Mar-2019 Instruction Type:Provider Instructions for Treatment How to access health informa tion online Indication:Insect bite Start:06-Dec-2018 Instruction Type:Patient Education How to access health informa tion online - Detail Indication:Insect bite Start:06-Dec-2018 Instruction Type:Patient Education Patient Instructions Indication:Insect bite Start:06-Dec-2018 Instruction Type:Provider Instructions for Treatment How to access health informa tion online Indication:BMI 22.0-22.9, adult Start:24-Oct-2018 Instruction Type:Patient Education How to access health informa tion online - Detail Indication:BMI 22.0-22.9, adult Start:24-Oct-2018 Instruction Type:Patient Education Patient Instructions Indication:BMI 22.0-22.9, adult Start:24-Oct-2018 Instruction Type:Provider Instructions for Treatment How to access health informa tion online Indication:Non-smoker Start:08-Mar-2018 Instruction Type:Patient Education How to access health informa tion online - Detail Indication:Non-smoker Start:08-Mar-2018 Instruction Type:Patient Education Patient Instructions Indication:Non-smoker Start:08-Mar-2018 Instruction Type:Provider Instructions for Treatment How to access health informa tion online Indication:Non-smoker Start:11-Feb-2018 Instruction Type:Patient Education How to access health informa tion online - Detail Indication:Non-smoker Start:11-Feb-2018 Instruction Type:Patient Education Patient Instructions Indication:Non-smoker Start:11-Feb-2018 Instruction Type:Provider Instructions for Treatment How to access health informa tion online Indication:Non-smoker Start:07-Feb-2018 Instruction Type:Patient Education How to access health informa tion online - Detail Indication:Non-smoker Start:07-Feb-2018 Instruction Type:Patient Education Patient Instructions Indication:Non-smoker Start:07-Feb-2018 Instruction Type:Provider Instructions for Treatment How to access health informa tion online Indication:Non-smoker Start:24-Jan-2018 Instruction Type:Patient Education How to access health informa tion online - Detail Indication:Non-smoker Start:24-Jan-2018 Instruction Type:Patient Education Patient Instructions Indication:Non-smoker Start:24-Jan-2018 Instruction Type:Provider Instructions for Treatment How to access health informa tion online Indication:BMI 23.0-23.9, adult Start:24-Dec-2017 Instruction Type:Patient Education How to access health informa tion online - Detail Indication:BMI 23.0-23.9, adult Start:24-Dec-2017 Instruction Type:Patient Education Patient Instructions Indication:BMI 23.0-23.9, adult Start:24-Dec-2017 Instruction Type:Provider Instructions for Treatment How to access health informa tion online Indication:Non-smoker Start:23-Dec-2017 Instruction Type:Patient Education How to access health informa tion online - Detail Indication:Non-smoker Start:23-Dec-2017 Instruction Type:Patient Education Patient Instructions Indication:Non-smoker Start:23-Dec-2017 Instruction Type:Provider Instructions for Treatment How to access health informa tion online Indication:Non-smoker Start:30-Nov-2017 Instruction Type:Patient Education How to access health informa tion online - Detail Indication:Non-smoker Start:30-Nov-2017 Instruction Type:Patient Education Patient Instructions Indication:Sinusitis, bacterial Start:30-Nov-2017 Instruction Type:Provider Instructions for Treatment How to access health informa tion online Indication:Non-smoker Start:03-Aug-2017 Instruction Type:Patient Education How to access health informa tion online - Detail Indication:Non-smoker Start:03-Aug-2017 Instruction Type:Patient Education Patient Instructions Indication:Non-smoker Start:03-Aug-2017 Instruction Type:Provider Instructions for Treatment How to access health informa tion online Indication:BMI 21.0-21.9, adult Start:31-May-2017 Instruction Type:Patient Education How to access health informa tion online - Detail Indication:BMI 21.0-21.9, adult Start:31-May-2017 Instruction Type:Patient Education Patient Instructions Indication:BMI 21.0-21.9, adult Start:31-May-2017 Instruction Type:Provider Instructions for Treatment How to access health informa tion online Indication:Mild asthma Start:02-Mar-2017 Instruction Type:Patient Education How to access health informa tion online - Detail Indication:Mild asthma Start:02-Mar-2017 Instruction Type:Patient Education Patient Instructions Indication:Mild asthma Start:02-Mar-2017 Instruction Type:Provider Instructions for Treatment How to access health informa tion online Indication:Sore throat Start:10-Feb-2017 Instruction Type:Patient Education How to access health informa tion online - Detail Indication:Sore throat Start:10-Feb-2017 Instruction Type:Patient Education Patient Instructions Indication:Sore throat Start:10-Feb-2017 Instruction Type:Provider Instructions for Treatment How to access health informa tion online Indication:Atypical migraine Start:10-Oct-2015 Instruction Type:Patient Education How to access health informa tion online - Detail Indication:Atypical migraine Start:10-Oct-2015 Instruction Type:Patient Education Patient Instructions Indication:Atypical migraine Start:10-Oct-2015 Instruction Type:Provider Instructions for Treatment How to access health informa tion online Indication:Atypical migraine Start:30-Aug-2015 Instruction Type:Patient Education How to access health informa tion online - Detail Indication:Atypical migraine Start:30-Aug-2015 Instruction Type:Patient Education Patient Instructions Indication:Atypical migraine Start:30-Aug-2015 Instruction Type:Provider Instructions for Treatment Patient Instructions Indication:Vitamin D deficiency Start:09-Aug-2015 Instruction Type:Provider Instructions for Treatment Patient Instructions Indication:Vitamin D deficiency Start:28-Jun-2015 Instruction Type:Provider Instructions for Treatment How to access health informa tion online Indication:Atypical migraine Start:31-May-2015 Instruction Type:Patient Education How to access health informa tion online - Detail Indication:Atypical migraine Start:31-May-2015 Instruction Type:Patient Education Patient Instructions Indication:Atypical migraine Start:31-May-2015 Instruction Type:Provider Instructions for Treatment Patient Instructions Indication:Pleurisy Start:26-Feb-2015 Instruction Type:Provider Instructions for Treatment [facility]; [facility] Work Phone: Instructions* Name Dates Details Patient Instructions Indication:Internal jugular vein thrombosis, right Start:12-Nov-2020 Instruction Type:Provider Instructions for Treatment How to Access Health Informa tion Online using Patient Portal and [employer]rd [employer] Apps Indication:Internal jugular vein thrombosis, right Start:12-Nov-2020 Instruction Type:Patient Education How to access health informa tion online Indication:BMI 22.0-22.9, adult Start:19-Jul-2019 Instruction Type:Patient Education How to access health informa tion online - Detail Indication:BMI 22.0-22.9, adult Start:19-Jul-2019 Instruction Type:Patient Education Patient Instructions Indication:BMI 22.0-22.9, adult Start:19-Jul-2019 Instruction Type:Provider Instructions for Treatment How to access health informa tion online Indication:BMI 22.0-22.9, adult Start:17-May-2019 Instruction Type:Patient Education How to access health informa tion online - Detail Indication:BMI 22.0-22.9, adult Start:17-May-2019 Instruction Type:Patient Education Patient Instructions Indication:BMI 22.0-22.9, adult Start:17-May-2019 Instruction Type:Provider Instructions for Treatment How to access health informa tion online Indication:Non-smoker Start:29-Mar-2019 Instruction Type:Patient Education How to access health informa tion online - Detail Indication:Non-smoker Start:29-Mar-2019 Instruction Type:Patient Education Patient Instructions Indication:Non-smoker Start:29-Mar-2019 Instruction Type:Provider Instructions for Treatment How to access health informa tion online Indication:Non-smoker Start:08-Mar-2019 Instruction Type:Patient Education How to access health informa tion online - Detail Indication:Non-smoker Start:08-Mar-2019 Instruction Type:Patient Education Patient Instructions Indication:Non-smoker Start:08-Mar-2019 Instruction Type:Provider Instructions for Treatment How to access health informa tion online Indication:Insect bite Start:06-Dec-2018 Instruction Type:Patient Education How to access health informa tion online - Detail Indication:Insect bite Start:06-Dec-2018 Instruction Type:Patient Education Patient Instructions Indication:Insect bite Start:06-Dec-2018 Instruction Type:Provider Instructions for Treatment How to access health informa tion online Indication:BMI 22.0-22.9, adult Start:24-Oct-2018 Instruction Type:Patient Education How to access health informa tion online - Detail Indication:BMI 22.0-22.9, adult Start:24-Oct-2018 Instruction Type:Patient Education Patient Instructions Indication:BMI 22.0-22.9, adult Start:24-Oct-2018 Instruction Type:Provider Instructions for Treatment How to access health informa tion online Indication:Non-smoker Start:08-Mar-2018 Instruction Type:Patient Education How to access health informa tion online - Detail Indication:Non-smoker Start:08-Mar-2018 Instruction Type:Patient Education Patient Instructions Indication:Non-smoker Start:08-Mar-2018 Instruction Type:Provider Instructions for Treatment How to access health informa tion online Indication:Non-smoker Start:11-Feb-2018 Instruction Type:Patient Education How to access health informa tion online - Detail Indication:Non-smoker Start:11-Feb-2018 Instruction Type:Patient Education Patient Instructions Indication:Non-smoker Start:11-Feb-2018 Instruction Type:Provider Instructions for Treatment How to access health informa tion online Indication:Non-smoker Start:07-Feb-2018 Instruction Type:Patient Education How to access health informa tion online - Detail Indication:Non-smoker Start:07-Feb-2018 Instruction Type:Patient Education Patient Instructions Indication:Non-smoker Start:07-Feb-2018 Instruction Type:Provider Instructions for Treatment How to access health informa tion online Indication:Non-smoker Start:24-Jan-2018 Instruction Type:Patient Education How to access health informa tion online - Detail Indication:Non-smoker Start:24-Jan-2018 Instruction Type:Patient Education Patient Instructions Indication:Non-smoker Start:24-Jan-2018 Instruction Type:Provider Instructions for Treatment How to access health informa tion online Indication:BMI 23.0-23.9, adult Start:24-Dec-2017 Instruction Type:Patient Education How to access health informa tion online - Detail Indication:BMI 23.0-23.9, adult Start:24-Dec-2017 Instruction Type:Patient Education Patient Instructions Indication:BMI 23.0-23.9, adult Start:24-Dec-2017 Instruction Type:Provider Instructions for Treatment How to access health informa tion online Indication:Non-smoker Start:23-Dec-2017 Instruction Type:Patient Education How to access health informa tion online - Detail Indication:Non-smoker Start:23-Dec-2017 Instruction Type:Patient Education Patient Instructions Indication:Non-smoker Start:23-Dec-2017 Instruction Type:Provider Instructions for Treatment How to access health informa tion online Indication:Non-smoker Start:30-Nov-2017 Instruction Type:Patient Education How to access health informa tion online - Detail Indication:Non-smoker Start:30-Nov-2017 Instruction Type:Patient Education Patient Instructions Indication:Sinusitis, bacterial Start:30-Nov-2017 Instruction Type:Provider Instructions for Treatment How to access health informa tion online Indication:Non-smoker Start:03-Aug-2017 Instruction Type:Patient Education How to access health informa tion online - Detail Indication:Non-smoker Start:03-Aug-2017 Instruction Type:Patient Education Patient Instructions Indication:Non-smoker Start:03-Aug-2017 Instruction Type:Provider Instructions for Treatment How to access health informa tion online Indication:BMI 21.0-21.9, adult Start:31-May-2017 Instruction Type:Patient Education How to access health informa tion online - Detail Indication:BMI 21.0-21.9, adult Start:31-May-2017 Instruction Type:Patient Education Patient Instructions Indication:BMI 21.0-21.9, adult Start:31-May-2017 Instruction Type:Provider Instructions for Treatment How to access health informa tion online Indication:Mild asthma Start:02-Mar-2017 Instruction Type:Patient Education How to access health informa tion online - Detail Indication:Mild asthma Start:02-Mar-2017 Instruction Type:Patient Education Patient Instructions Indication:Mild asthma Start:02-Mar-2017 Instruction Type:Provider Instructions for Treatment How to access health informa tion online Indication:Sore throat Start:10-Feb-2017 Instruction Type:Patient Education How to access health informa tion online - Detail Indication:Sore throat Start:10-Feb-2017 Instruction Type:Patient Education Patient Instructions Indication:Sore throat Start:10-Feb-2017 Instruction Type:Provider Instructions for Treatment How to access health informa tion online Indication:Atypical migraine Start:10-Oct-2015 Instruction Type:Patient Education How to access health informa tion online - Detail Indication:Atypical migraine Start:10-Oct-2015 Instruction Type:Patient Education Patient Instructions Indication:Atypical migraine Start:10-Oct-2015 Instruction Type:Provider Instructions for Treatment How to access health informa tion online Indication:Atypical migraine Start:30-Aug-2015 Instruction Type:Patient Education How to access health informa tion online - Detail Indication:Atypical migraine Start:30-Aug-2015 Instruction Type:Patient Education Patient Instructions Indication:Atypical migraine Start:30-Aug-2015 Instruction Type:Provider Instructions for Treatment Patient Instructions Indication:Vitamin D deficiency Start:09-Aug-2015 Instruction Type:Provider Instructions for Treatment Patient Instructions Indication:Vitamin D deficiency Start:28-Jun-2015 Instruction Type:Provider Instructions for Treatment How to access health informa tion online Indication:Atypical migraine Start:31-May-2015 Instruction Type:Patient Education How to access health informa tion online - Detail Indication:Atypical migraine Start:31-May-2015 Instruction Type:Patient Education Patient Instructions Indication:Atypical migraine Start:31-May-2015 Instruction Type:Provider Instructions for Treatment Patient Instructions Indication:Pleurisy Start:26-Feb-2015 Instruction Type:Provider Instructions for Treatment [facility]; [facility] Work Phone: Instructions* Name Dates Details Patient Instructions Indication:Internal jugular vein thrombosis, right Start:12-Nov-2020 Instruction Type:Provider Instructions for Treatment How to Access Health Informa tion Online using Patient Portal and [employer] Apps Indication:Internal jugular vein thrombosis, right Start:12-Nov-2020 Instruction Type:Patient Education How to access health informa tion online Indication:BMI 22.0-22.9, adult Start:19-Jul-2019 Instruction Type:Patient Education How to access health informa tion online - Detail Indication:BMI 22.0-22.9, adult Start:19-Jul-2019 Instruction Type:Patient Education Patient Instructions Indication:BMI 22.0-22.9, adult Start:19-Jul-2019 Instruction Type:Provider Instructions for Treatment How to access health informa tion online Indication:BMI 22.0-22.9, adult Start:17-May-2019 Instruction Type:Patient Education How to access health informa tion online - Detail Indication:BMI 22.0-22.9, adult Start:17-May-2019 Instruction Type:Patient Education Patient Instructions Indication:BMI 22.0-22.9, adult Start:17-May-2019 Instruction Type:Provider Instructions for Treatment How to access health informa tion online Indication:Non-smoker Start:29-Mar-2019 Instruction Type:Patient Education How to access health informa tion online - Detail Indication:Non-smoker Start:29-Mar-2019 Instruction Type:Patient Education Patient Instructions Indication:Non-smoker Start:29-Mar-2019 Instruction Type:Provider Instructions for Treatment How to access health informa tion online Indication:Non-smoker Start:08-Mar-2019 Instruction Type:Patient Education How to access health informa tion online - Detail Indication:Non-smoker Start:08-Mar-2019 Instruction Type:Patient Education Patient Instructions Indication:Non-smoker Start:08-Mar-2019 Instruction Type:Provider Instructions for Treatment How to access health informa tion online Indication:Insect bite Start:06-Dec-2018 Instruction Type:Patient Education How to access health informa tion online - Detail Indication:Insect bite Start:06-Dec-2018 Instruction Type:Patient Education Patient Instructions Indication:Insect bite Start:06-Dec-2018 Instruction Type:Provider Instructions for Treatment How to access health informa tion online Indication:BMI 22.0-22.9, adult Start:24-Oct-2018 Instruction Type:Patient Education How to access health informa tion online - Detail Indication:BMI 22.0-22.9, adult Start:24-Oct-2018 Instruction Type:Patient Education Patient Instructions Indication:BMI 22.0-22.9, adult Start:24-Oct-2018 Instruction Type:Provider Instructions for Treatment How to access health informa tion online Indication:Non-smoker Start:08-Mar-2018 Instruction Type:Patient Education How to access health informa tion online - Detail Indication:Non-smoker Start:08-Mar-2018 Instruction Type:Patient Education Patient Instructions Indication:Non-smoker Start:08-Mar-2018 Instruction Type:Provider Instructions for Treatment How to access health informa tion online Indication:Non-smoker Start:11-Feb-2018 Instruction Type:Patient Education How to access health informa tion online - Detail Indication:Non-smoker Start:11-Feb-2018 Instruction Type:Patient Education Patient Instructions Indication:Non-smoker Start:11-Feb-2018 Instruction Type:Provider Instructions for Treatment How to access health informa tion online Indication:Non-smoker Start:07-Feb-2018 Instruction Type:Patient Education How to access health informa tion online - Detail Indication:Non-smoker Start:07-Feb-2018 Instruction Type:Patient Education Patient Instructions Indication:Non-smoker Start:07-Feb-2018 Instruction Type:Provider Instructions for Treatment How to access health informa tion online Indication:Non-smoker Start:24-Jan-2018 Instruction Type:Patient Education How to access health informa tion online - Detail Indication:Non-smoker Start:24-Jan-2018 Instruction Type:Patient Education Patient Instructions Indication:Non-smoker Start:24-Jan-2018 Instruction Type:Provider Instructions for Treatment How to access health informa tion online Indication:BMI 23.0-23.9, adult Start:24-Dec-2017 Instruction Type:Patient Education How to access health informa tion online - Detail Indication:BMI 23.0-23.9, adult Start:24-Dec-2017 Instruction Type:Patient Education Patient Instructions Indication:BMI 23.0-23.9, adult Start:24-Dec-2017 Instruction Type:Provider Instructions for Treatment How to access health informa tion online Indication:Non-smoker Start:23-Dec-2017 Instruction Type:Patient Education How to access health informa tion online - Detail Indication:Non-smoker Start:23-Dec-2017 Instruction Type:Patient Education Patient Instructions Indication:Non-smoker Start:23-Dec-2017 Instruction Type:Provider Instructions for Treatment How to access health informa tion online Indication:Non-smoker Start:30-Nov-2017 Instruction Type:Patient Education How to access health informa tion online - Detail Indication:Non-smoker Start:30-Nov-2017 Instruction Type:Patient Education Patient Instructions Indication:Sinusitis, bacterial Start:30-Nov-2017 Instruction Type:Provider Instructions for Treatment How to access health informa tion online Indication:Non-smoker Start:03-Aug-2017 Instruction Type:Patient Education How to access health informa tion online - Detail Indication:Non-smoker Start:03-Aug-2017 Instruction Type:Patient Education Patient Instructions Indication:Non-smoker Start:03-Aug-2017 Instruction Type:Provider Instructions for Treatment How to access health informa tion online Indication:BMI 21.0-21.9, adult Start:31-May-2017 Instruction Type:Patient Education How to access health informa tion online - Detail Indication:BMI 21.0-21.9, adult Start:31-May-2017 Instruction Type:Patient Education Patient Instructions Indication:BMI 21.0-21.9, adult Start:31-May-2017 Instruction Type:Provider Instructions for Treatment How to access health informa tion online Indication:Mild asthma Start:02-Mar-2017 Instruction Type:Patient Education How to access health informa tion online - Detail Indication:Mild asthma Start:02-Mar-2017 Instruction Type:Patient Education Patient Instructions Indication:Mild asthma Start:02-Mar-2017 Instruction Type:Provider Instructions for Treatment How to access health informa tion online Indication:Sore throat Start:10-Feb-2017 Instruction Type:Patient Education How to access health informa tion online - Detail Indication:Sore throat Start:10-Feb-2017 Instruction Type:Patient Education Patient Instructions Indication:Sore throat Start:10-Feb-2017 Instruction Type:Provider Instructions for Treatment How to access health informa tion online Indication:Atypical migraine Start:10-Oct-2015 Instruction Type:Patient Education How to access health informa tion online - Detail Indication:Atypical migraine Start:10-Oct-2015 Instruction Type:Patient Education Patient Instructions Indication:Atypical migraine Start:10-Oct-2015 Instruction Type:Provider Instructions for Treatment How to access health informa tion online Indication:Atypical migraine Start:30-Aug-2015 Instruction Type:Patient Education How to access health informa tion online - Detail Indication:Atypical migraine Start:30-Aug-2015 Instruction Type:Patient Education Patient Instructions Indication:Atypical migraine Start:30-Aug-2015 Instruction Type:Provider Instructions for Treatment Patient Instructions Indication:Vitamin D deficiency Start:09-Aug-2015 Instruction Type:Provider Instructions for Treatment Patient Instructions Indication:Vitamin D deficiency Start:28-Jun-2015 Instruction Type:Provider Instructions for Treatment How to access health informa tion online Indication:Atypical migraine Start:31-May-2015 Instruction Type:Patient Education How to access health informa tion online - Detail Indication:Atypical migraine Start:31-May-2015 Instruction Type:Patient Education Patient Instructions Indication:Atypical migraine Start:31-May-2015 Instruction Type:Provider Instructions for Treatment Patient Instructions Indication:Pleurisy Start:26-Feb-2015 Instruction Type:Provider Instructions for Treatment [facility]; [facility] Work Phone: Instructions* Name Dates Details Patient Instructions Indication:BMI 28.0-28.9,adult Start:24-Dec-2020 Instruction Type:Provider Instructions for Treatment How to Access Health Informa tion Online using Patient Portal and [employer]rd [employer] Apps Indication:BMI 28.0-28.9,adult Start:24-Dec-2020 Instruction Type:Patient Education Patient Instructions Indication:Internal jugular vein thrombosis, right Start:12-Nov-2020 Instruction Type:Provider Instructions for Treatment How to Access Health Informa tion Online using Patient Portal and [employer]rd [employer] Apps Indication:Internal jugular vein thrombosis, right Start:12-Nov-2020 Instruction Type:Patient Education How to access health informa tion online Indication:BMI 22.0-22.9, adult Start:19-Jul-2019 Instruction Type:Patient Education How to access health informa tion online - Detail Indication:BMI 22.0-22.9, adult Start:19-Jul-2019 Instruction Type:Patient Education Patient Instructions Indication:BMI 22.0-22.9, adult Start:19-Jul-2019 Instruction Type:Provider Instructions for Treatment How to access health informa tion online Indication:BMI 22.0-22.9, adult Start:17-May-2019 Instruction Type:Patient Education How to access health informa tion online - Detail Indication:BMI 22.0-22.9, adult Start:17-May-2019 Instruction Type:Patient Education Patient Instructions Indication:BMI 22.0-22.9, adult Start:17-May-2019 Instruction Type:Provider Instructions for Treatment How to access health informa tion online Indication:Non-smoker Start:29-Mar-2019 Instruction Type:Patient Education How to access health informa tion online - Detail Indication:Non-smoker Start:29-Mar-2019 Instruction Type:Patient Education Patient Instructions Indication:Non-smoker Start:29-Mar-2019 Instruction Type:Provider Instructions for Treatment How to access health informa tion online Indication:Non-smoker Start:08-Mar-2019 Instruction Type:Patient Education How to access health informa tion online - Detail Indication:Non-smoker Start:08-Mar-2019 Instruction Type:Patient Education Patient Instructions Indication:Non-smoker Start:08-Mar-2019 Instruction Type:Provider Instructions for Treatment How to access health informa tion online Indication:Insect bite Start:06-Dec-2018 Instruction Type:Patient Education How to access health informa tion online - Detail Indication:Insect bite Start:06-Dec-2018 Instruction Type:Patient Education Patient Instructions Indication:Insect bite Start:06-Dec-2018 Instruction Type:Provider Instructions for Treatment How to access health informa tion online Indication:BMI 22.0-22.9, adult Start:24-Oct-2018 Instruction Type:Patient Education How to access health informa tion online - Detail Indication:BMI 22.0-22.9, adult Start:24-Oct-2018 Instruction Type:Patient Education Patient Instructions Indication:BMI 22.0-22.9, adult Start:24-Oct-2018 Instruction Type:Provider Instructions for Treatment How to access health informa tion online Indication:Non-smoker Start:08-Mar-2018 Instruction Type:Patient Education How to access health informa tion online - Detail Indication:Non-smoker Start:08-Mar-2018 Instruction Type:Patient Education Patient Instructions Indication:Non-smoker Start:08-Mar-2018 Instruction Type:Provider Instructions for Treatment How to access health informa tion online Indication:Non-smoker Start:11-Feb-2018 Instruction Type:Patient Education How to access health informa tion online - Detail Indication:Non-smoker Start:11-Feb-2018 Instruction Type:Patient Education Patient Instructions Indication:Non-smoker Start:11-Feb-2018 Instruction Type:Provider Instructions for Treatment How to access health informa tion online Indication:Non-smoker Start:07-Feb-2018 Instruction Type:Patient Education How to access health informa tion online - Detail Indication:Non-smoker Start:07-Feb-2018 Instruction Type:Patient Education Patient Instructions Indication:Non-smoker Start:07-Feb-2018 Instruction Type:Provider Instructions for Treatment How to access health informa tion online Indication:Non-smoker Start:24-Jan-2018 Instruction Type:Patient Education How to access health informa tion online - Detail Indication:Non-smoker Start:24-Jan-2018 Instruction Type:Patient Education Patient Instructions Indication:Non-smoker Start:24-Jan-2018 Instruction Type:Provider Instructions for Treatment How to access health informa tion online Indication:BMI 23.0-23.9, adult Start:24-Dec-2017 Instruction Type:Patient Education How to access health informa tion online - Detail Indication:BMI 23.0-23.9, adult Start:24-Dec-2017 Instruction Type:Patient Education Patient Instructions Indication:BMI 23.0-23.9, adult Start:24-Dec-2017 Instruction Type:Provider Instructions for Treatment How to access health informa tion online Indication:Non-smoker Start:23-Dec-2017 Instruction Type:Patient Education How to access health informa tion online - Detail Indication:Non-smoker Start:23-Dec-2017 Instruction Type:Patient Education Patient Instructions Indication:Non-smoker Start:23-Dec-2017 Instruction Type:Provider Instructions for Treatment How to access health informa tion online Indication:Non-smoker Start:30-Nov-2017 Instruction Type:Patient Education How to access health informa tion online - Detail Indication:Non-smoker Start:30-Nov-2017 Instruction Type:Patient Education Patient Instructions Indication:Sinusitis, bacterial Start:30-Nov-2017 Instruction Type:Provider Instructions for Treatment How to access health informa tion online Indication:Non-smoker Start:03-Aug-2017 Instruction Type:Patient Education How to access health informa tion online - Detail Indication:Non-smoker Start:03-Aug-2017 Instruction Type:Patient Education Patient Instructions Indication:Non-smoker Start:03-Aug-2017 Instruction Type:Provider Instructions for Treatment How to access health informa tion online Indication:BMI 21.0-21.9, adult Start:31-May-2017 Instruction Type:Patient Education How to access health informa tion online - Detail Indication:BMI 21.0-21.9, adult Start:31-May-2017 Instruction Type:Patient Education Patient Instructions Indication:BMI 21.0-21.9, adult Start:31-May-2017 Instruction Type:Provider Instructions for Treatment How to access health informa tion online Indication:Mild asthma Start:02-Mar-2017 Instruction Type:Patient Education How to access health informa tion online - Detail Indication:Mild asthma Start:02-Mar-2017 Instruction Type:Patient Education Patient Instructions Indication:Mild asthma Start:02-Mar-2017 Instruction Type:Provider Instructions for Treatment How to access health informa tion online Indication:Sore throat Start:10-Feb-2017 Instruction Type:Patient Education How to access health informa tion online - Detail Indication:Sore throat Start:10-Feb-2017 Instruction Type:Patient Education Patient Instructions Indication:Sore throat Start:10-Feb-2017 Instruction Type:Provider Instructions for Treatment How to access health informa tion online Indication:Atypical migraine Start:10-Oct-2015 Instruction Type:Patient Education How to access health informa tion online - Detail Indication:Atypical migraine Start:10-Oct-2015 Instruction Type:Patient Education Patient Instructions Indication:Atypical migraine Start:10-Oct-2015 Instruction Type:Provider Instructions for Treatment How to access health informa tion online Indication:Atypical migraine Start:30-Aug-2015 Instruction Type:Patient Education How to access health informa tion online - Detail Indication:Atypical migraine Start:30-Aug-2015 Instruction Type:Patient Education Patient Instructions Indication:Atypical migraine Start:30-Aug-2015 Instruction Type:Provider Instructions for Treatment Patient Instructions Indication:Vitamin D deficiency Start:09-Aug-2015 Instruction Type:Provider Instructions for Treatment Patient Instructions Indication:Vitamin D deficiency Start:28-Jun-2015 Instruction Type:Provider Instructions for Treatment How to access health informa tion online Indication:Atypical migraine Start:31-May-2015 Instruction Type:Patient Education How to access health informa tion online - Detail Indication:Atypical migraine Start:31-May-2015 Instruction Type:Patient Education Patient Instructions Indication:Atypical migraine Start:31-May-2015 Instruction Type:Provider Instructions for Treatment Patient Instructions Indication:Pleurisy Start:26-Feb-2015 Instruction Type:Provider Instructions for Treatment [facility]; [facility] Work Phone: Instructions* Name Dates Details Patient Instructions Indication:BMI 28.0-28.9,adult Start:24-Dec-2020 Instruction Type:Provider Instructions for Treatment How to Access Health Informa tion Online using Patient Portal and [employer]rd [employer] Apps Indication:BMI 28.0-28.9,adult Start:24-Dec-2020 Instruction Type:Patient Education Patient Instructions Indication:Internal jugular vein thrombosis, right Start:12-Nov-2020 Instruction Type:Provider Instructions for Treatment How to Access Health Informa tion Online using Patient Portal and [employer]rd [employer] Apps Indication:Internal jugular vein thrombosis, right Start:12-Nov-2020 Instruction Type:Patient Education How to access health informa tion online Indication:BMI 22.0-22.9, adult Start:19-Jul-2019 Instruction Type:Patient Education How to access health informa tion online - Detail Indication:BMI 22.0-22.9, adult Start:19-Jul-2019 Instruction Type:Patient Education Patient Instructions Indication:BMI 22.0-22.9, adult Start:19-Jul-2019 Instruction Type:Provider Instructions for Treatment How to access health informa tion online Indication:BMI 22.0-22.9, adult Start:17-May-2019 Instruction Type:Patient Education How to access health informa tion online - Detail Indication:BMI 22.0-22.9, adult Start:17-May-2019 Instruction Type:Patient Education Patient Instructions Indication:BMI 22.0-22.9, adult Start:17-May-2019 Instruction Type:Provider Instructions for Treatment How to access health informa tion online Indication:Non-smoker Start:29-Mar-2019 Instruction Type:Patient Education How to access health informa tion online - Detail Indication:Non-smoker Start:29-Mar-2019 Instruction Type:Patient Education Patient Instructions Indication:Non-smoker Start:29-Mar-2019 Instruction Type:Provider Instructions for Treatment How to access health informa tion online Indication:Non-smoker Start:08-Mar-2019 Instruction Type:Patient Education How to access health informa tion online - Detail Indication:Non-smoker Start:08-Mar-2019 Instruction Type:Patient Education Patient Instructions Indication:Non-smoker Start:08-Mar-2019 Instruction Type:Provider Instructions for Treatment How to access health informa tion online Indication:Insect bite Start:06-Dec-2018 Instruction Type:Patient Education How to access health informa tion online - Detail Indication:Insect bite Start:06-Dec-2018 Instruction Type:Patient Education Patient Instructions Indication:Insect bite Start:06-Dec-2018 Instruction Type:Provider Instructions for Treatment How to access health informa tion online Indication:BMI 22.0-22.9, adult Start:24-Oct-2018 Instruction Type:Patient Education How to access health informa tion online - Detail Indication:BMI 22.0-22.9, adult Start:24-Oct-2018 Instruction Type:Patient Education Patient Instructions Indication:BMI 22.0-22.9, adult Start:24-Oct-2018 Instruction Type:Provider Instructions for Treatment How to access health informa tion online Indication:Non-smoker Start:08-Mar-2018 Instruction Type:Patient Education How to access health informa tion online - Detail Indication:Non-smoker Start:08-Mar-2018 Instruction Type:Patient Education Patient Instructions Indication:Non-smoker Start:08-Mar-2018 Instruction Type:Provider Instructions for Treatment How to access health informa tion online Indication:Non-smoker Start:11-Feb-2018 Instruction Type:Patient Education How to access health informa tion online - Detail Indication:Non-smoker Start:11-Feb-2018 Instruction Type:Patient Education Patient Instructions Indication:Non-smoker Start:11-Feb-2018 Instruction Type:Provider Instructions for Treatment How to access health informa tion online Indication:Non-smoker Start:07-Feb-2018 Instruction Type:Patient Education How to access health informa tion online - Detail Indication:Non-smoker Start:07-Feb-2018 Instruction Type:Patient Education Patient Instructions Indication:Non-smoker Start:07-Feb-2018 Instruction Type:Provider Instructions for Treatment How to access health informa tion online Indication:Non-smoker Start:24-Jan-2018 Instruction Type:Patient Education How to access health informa tion online - Detail Indication:Non-smoker Start:24-Jan-2018 Instruction Type:Patient Education Patient Instructions Indication:Non-smoker Start:24-Jan-2018 Instruction Type:Provider Instructions for Treatment How to access health informa tion online Indication:BMI 23.0-23.9, adult Start:24-Dec-2017 Instruction Type:Patient Education How to access health informa tion online - Detail Indication:BMI 23.0-23.9, adult Start:24-Dec-2017 Instruction Type:Patient Education Patient Instructions Indication:BMI 23.0-23.9, adult Start:24-Dec-2017 Instruction Type:Provider Instructions for Treatment How to access health informa tion online Indication:Non-smoker Start:23-Dec-2017 Instruction Type:Patient Education How to access health informa tion online - Detail Indication:Non-smoker Start:23-Dec-2017 Instruction Type:Patient Education Patient Instructions Indication:Non-smoker Start:23-Dec-2017 Instruction Type:Provider Instructions for Treatment How to access health informa tion online Indication:Non-smoker Start:30-Nov-2017 Instruction Type:Patient Education How to access health informa tion online - Detail Indication:Non-smoker Start:30-Nov-2017 Instruction Type:Patient Education Patient Instructions Indication:Sinusitis, bacterial Start:30-Nov-2017 Instruction Type:Provider Instructions for Treatment How to access health informa tion online Indication:Non-smoker Start:03-Aug-2017 Instruction Type:Patient Education How to access health informa tion online - Detail Indication:Non-smoker Start:03-Aug-2017 Instruction Type:Patient Education Patient Instructions Indication:Non-smoker Start:03-Aug-2017 Instruction Type:Provider Instructions for Treatment How to access health informa tion online Indication:BMI 21.0-21.9, adult Start:31-May-2017 Instruction Type:Patient Education How to access health informa tion online - Detail Indication:BMI 21.0-21.9, adult Start:31-May-2017 Instruction Type:Patient Education Patient Instructions Indication:BMI 21.0-21.9, adult Start:31-May-2017 Instruction Type:Provider Instructions for Treatment How to access health informa tion online Indication:Mild asthma Start:02-Mar-2017 Instruction Type:Patient Education How to access health informa tion online - Detail Indication:Mild asthma Start:02-Mar-2017 Instruction Type:Patient Education Patient Instructions Indication:Mild asthma Start:02-Mar-2017 Instruction Type:Provider Instructions for Treatment How to access health informa tion online Indication:Sore throat Start:10-Feb-2017 Instruction Type:Patient Education How to access health informa tion online - Detail Indication:Sore throat Start:10-Feb-2017 Instruction Type:Patient Education Patient Instructions Indication:Sore throat Start:10-Feb-2017 Instruction Type:Provider Instructions for Treatment How to access health informa tion online Indication:Atypical migraine Start:10-Oct-2015 Instruction Type:Patient Education How to access health informa tion online - Detail Indication:Atypical migraine Start:10-Oct-2015 Instruction Type:Patient Education Patient Instructions Indication:Atypical migraine Start:10-Oct-2015 Instruction Type:Provider Instructions for Treatment How to access health informa tion online Indication:Atypical migraine Start:30-Aug-2015 Instruction Type:Patient Education How to access health informa tion online - Detail Indication:Atypical migraine Start:30-Aug-2015 Instruction Type:Patient Education Patient Instructions Indication:Atypical migraine Start:30-Aug-2015 Instruction Type:Provider Instructions for Treatment Patient Instructions Indication:Vitamin D deficiency Start:09-Aug-2015 Instruction Type:Provider Instructions for Treatment Patient Instructions Indication:Vitamin D deficiency Start:28-Jun-2015 Instruction Type:Provider Instructions for Treatment How to access health informa tion online Indication:Atypical migraine Start:31-May-2015 Instruction Type:Patient Education How to access health informa tion online - Detail Indication:Atypical migraine Start:31-May-2015 Instruction Type:Patient Education Patient Instructions Indication:Atypical migraine Start:31-May-2015 Instruction Type:Provider Instructions for Treatment Patient Instructions Indication:Pleurisy Start:26-Feb-2015 Instruction Type:Provider Instructions for Treatment [facility]; [facility] Work Phone: Instructions* Name Dates Details Patient Instructions Indication:BMI 28.0-28.9,adult Start:24-Dec-2020 Instruction Type:Provider Instructions for Treatment How to Access Health Informa tion Online using Patient Portal and [employer]rd [employer] Apps Indication:BMI 28.0-28.9,adult Start:24-Dec-2020 Instruction Type:Patient Education Patient Instructions Indication:Internal jugular vein thrombosis, right Start:12-Nov-2020 Instruction Type:Provider Instructions for Treatment How to Access Health Informa tion Online using Patient Portal and [employer]rd [employer] Apps Indication:Internal jugular vein thrombosis, right Start:12-Nov-2020 Instruction Type:Patient Education How to access health informa tion online Indication:BMI 22.0-22.9, adult Start:19-Jul-2019 Instruction Type:Patient Education How to access health informa tion online - Detail Indication:BMI 22.0-22.9, adult Start:19-Jul-2019 Instruction Type:Patient Education Patient Instructions Indication:BMI 22.0-22.9, adult Start:19-Jul-2019 Instruction Type:Provider Instructions for Treatment How to access health informa tion online Indication:BMI 22.0-22.9, adult Start:17-May-2019 Instruction Type:Patient Education How to access health informa tion online - Detail Indication:BMI 22.0-22.9, adult Start:17-May-2019 Instruction Type:Patient Education Patient Instructions Indication:BMI 22.0-22.9, adult Start:17-May-2019 Instruction Type:Provider Instructions for Treatment How to access health informa tion online Indication:Non-smoker Start:29-Mar-2019 Instruction Type:Patient Education How to access health informa tion online - Detail Indication:Non-smoker Start:29-Mar-2019 Instruction Type:Patient Education Patient Instructions Indication:Non-smoker Start:29-Mar-2019 Instruction Type:Provider Instructions for Treatment How to access health informa tion online Indication:Non-smoker Start:08-Mar-2019 Instruction Type:Patient Education How to access health informa tion online - Detail Indication:Non-smoker Start:08-Mar-2019 Instruction Type:Patient Education Patient Instructions Indication:Non-smoker Start:08-Mar-2019 Instruction Type:Provider Instructions for Treatment How to access health informa tion online Indication:Insect bite Start:06-Dec-2018 Instruction Type:Patient Education How to access health informa tion online - Detail Indication:Insect bite Start:06-Dec-2018 Instruction Type:Patient Education Patient Instructions Indication:Insect bite Start:06-Dec-2018 Instruction Type:Provider Instructions for Treatment How to access health informa tion online Indication:BMI 22.0-22.9, adult Start:24-Oct-2018 Instruction Type:Patient Education How to access health informa tion online - Detail Indication:BMI 22.0-22.9, adult Start:24-Oct-2018 Instruction Type:Patient Education Patient Instructions Indication:BMI 22.0-22.9, adult Start:24-Oct-2018 Instruction Type:Provider Instructions for Treatment How to access health informa tion online Indication:Non-smoker Start:08-Mar-2018 Instruction Type:Patient Education How to access health informa tion online - Detail Indication:Non-smoker Start:08-Mar-2018 Instruction Type:Patient Education Patient Instructions Indication:Non-smoker Start:08-Mar-2018 Instruction Type:Provider Instructions for Treatment How to access health informa tion online Indication:Non-smoker Start:11-Feb-2018 Instruction Type:Patient Education How to access health informa tion online - Detail Indication:Non-smoker Start:11-Feb-2018 Instruction Type:Patient Education Patient Instructions Indication:Non-smoker Start:11-Feb-2018 Instruction Type:Provider Instructions for Treatment How to access health informa tion online Indication:Non-smoker Start:07-Feb-2018 Instruction Type:Patient Education How to access health informa tion online - Detail Indication:Non-smoker Start:07-Feb-2018 Instruction Type:Patient Education Patient Instructions Indication:Non-smoker Start:07-Feb-2018 Instruction Type:Provider Instructions for Treatment How to access health informa tion online Indication:Non-smoker Start:24-Jan-2018 Instruction Type:Patient Education How to access health informa tion online - Detail Indication:Non-smoker Start:24-Jan-2018 Instruction Type:Patient Education Patient Instructions Indication:Non-smoker Start:24-Jan-2018 Instruction Type:Provider Instructions for Treatment How to access health informa tion online Indication:BMI 23.0-23.9, adult Start:24-Dec-2017 Instruction Type:Patient Education How to access health informa tion online - Detail Indication:BMI 23.0-23.9, adult Start:24-Dec-2017 Instruction Type:Patient Education Patient Instructions Indication:BMI 23.0-23.9, adult Start:24-Dec-2017 Instruction Type:Provider Instructions for Treatment How to access health informa tion online Indication:Non-smoker Start:23-Dec-2017 Instruction Type:Patient Education How to access health informa tion online - Detail Indication:Non-smoker Start:23-Dec-2017 Instruction Type:Patient Education Patient Instructions Indication:Non-smoker Start:23-Dec-2017 Instruction Type:Provider Instructions for Treatment How to access health informa tion online Indication:Non-smoker Start:30-Nov-2017 Instruction Type:Patient Education How to access health informa tion online - Detail Indication:Non-smoker Start:30-Nov-2017 Instruction Type:Patient Education Patient Instructions Indication:Sinusitis, bacterial Start:30-Nov-2017 Instruction Type:Provider Instructions for Treatment How to access health informa tion online Indication:Non-smoker Start:03-Aug-2017 Instruction Type:Patient Education How to access health informa tion online - Detail Indication:Non-smoker Start:03-Aug-2017 Instruction Type:Patient Education Patient Instructions Indication:Non-smoker Start:03-Aug-2017 Instruction Type:Provider Instructions for Treatment How to access health informa tion online Indication:BMI 21.0-21.9, adult Start:31-May-2017 Instruction Type:Patient Education How to access health informa tion online - Detail Indication:BMI 21.0-21.9, adult Start:31-May-2017 Instruction Type:Patient Education Patient Instructions Indication:BMI 21.0-21.9, adult Start:31-May-2017 Instruction Type:Provider Instructions for Treatment How to access health informa tion online Indication:Mild asthma Start:02-Mar-2017 Instruction Type:Patient Education How to access health informa tion online - Detail Indication:Mild asthma Start:02-Mar-2017 Instruction Type:Patient Education Patient Instructions Indication:Mild asthma Start:02-Mar-2017 Instruction Type:Provider Instructions for Treatment How to access health informa tion online Indication:Sore throat Start:10-Feb-2017 Instruction Type:Patient Education How to access health informa tion online - Detail Indication:Sore throat Start:10-Feb-2017 Instruction Type:Patient Education Patient Instructions Indication:Sore throat Start:10-Feb-2017 Instruction Type:Provider Instructions for Treatment How to access health informa tion online Indication:Atypical migraine Start:10-Oct-2015 Instruction Type:Patient Education How to access health informa tion online - Detail Indication:Atypical migraine Start:10-Oct-2015 Instruction Type:Patient Education Patient Instructions Indication:Atypical migraine Start:10-Oct-2015 Instruction Type:Provider Instructions for Treatment How to access health informa tion online Indication:Atypical migraine Start:30-Aug-2015 Instruction Type:Patient Education How to access health informa tion online - Detail Indication:Atypical migraine Start:30-Aug-2015 Instruction Type:Patient Education Patient Instructions Indication:Atypical migraine Start:30-Aug-2015 Instruction Type:Provider Instructions for Treatment Patient Instructions Indication:Vitamin D deficiency Start:09-Aug-2015 Instruction Type:Provider Instructions for Treatment Patient Instructions Indication:Vitamin D deficiency Start:28-Jun-2015 Instruction Type:Provider Instructions for Treatment How to access health informa tion online Indication:Atypical migraine Start:31-May-2015 Instruction Type:Patient Education How to access health informa tion online - Detail Indication:Atypical migraine Start:31-May-2015 Instruction Type:Patient Education Patient Instructions Indication:Atypical migraine Start:31-May-2015 Instruction Type:Provider Instructions for Treatment Patient Instructions Indication:Pleurisy Start:26-Feb-2015 Instruction Type:Provider Instructions for Treatment [facility]; [facility] Work Phone: Instructions* Name Dates Details Patient Instructions Indication:BMI 28.0-28.9,adult Start:24-Dec-2020 Instruction Type:Provider Instructions for Treatment How to Access Health Informa tion Online using Patient Portal and [employer]rd [employer] Apps Indication:BMI 28.0-28.9,adult Start:24-Dec-2020 Instruction Type:Patient Education Patient Instructions Indication:Internal jugular vein thrombosis, right Start:12-Nov-2020 Instruction Type:Provider Instructions for Treatment How to Access Health Informa tion Online using Patient Portal and [employer]rd [employer] Apps Indication:Internal jugular vein thrombosis, right Start:12-Nov-2020 Instruction Type:Patient Education How to access health informa tion online Indication:BMI 22.0-22.9, adult Start:19-Jul-2019 Instruction Type:Patient Education How to access health informa tion online - Detail Indication:BMI 22.0-22.9, adult Start:19-Jul-2019 Instruction Type:Patient Education Patient Instructions Indication:BMI 22.0-22.9, adult Start:19-Jul-2019 Instruction Type:Provider Instructions for Treatment How to access health informa tion online Indication:BMI 22.0-22.9, adult Start:17-May-2019 Instruction Type:Patient Education How to access health informa tion online - Detail Indication:BMI 22.0-22.9, adult Start:17-May-2019 Instruction Type:Patient Education Patient Instructions Indication:BMI 22.0-22.9, adult Start:17-May-2019 Instruction Type:Provider Instructions for Treatment How to access health informa tion online Indication:Non-smoker Start:29-Mar-2019 Instruction Type:Patient Education How to access health informa tion online - Detail Indication:Non-smoker Start:29-Mar-2019 Instruction Type:Patient Education Patient Instructions Indication:Non-smoker Start:29-Mar-2019 Instruction Type:Provider Instructions for Treatment How to access health informa tion online Indication:Non-smoker Start:08-Mar-2019 Instruction Type:Patient Education How to access health informa tion online - Detail Indication:Non-smoker Start:08-Mar-2019 Instruction Type:Patient Education Patient Instructions Indication:Non-smoker Start:08-Mar-2019 Instruction Type:Provider Instructions for Treatment How to access health informa tion online Indication:Insect bite Start:06-Dec-2018 Instruction Type:Patient Education How to access health informa tion online - Detail Indication:Insect bite Start:06-Dec-2018 Instruction Type:Patient Education Patient Instructions Indication:Insect bite Start:06-Dec-2018 Instruction Type:Provider Instructions for Treatment How to access health informa tion online Indication:BMI 22.0-22.9, adult Start:24-Oct-2018 Instruction Type:Patient Education How to access health informa tion online - Detail Indication:BMI 22.0-22.9, adult Start:24-Oct-2018 Instruction Type:Patient Education Patient Instructions Indication:BMI 22.0-22.9, adult Start:24-Oct-2018 Instruction Type:Provider Instructions for Treatment How to access health informa tion online Indication:Non-smoker Start:08-Mar-2018 Instruction Type:Patient Education How to access health informa tion online - Detail Indication:Non-smoker Start:08-Mar-2018 Instruction Type:Patient Education Patient Instructions Indication:Non-smoker Start:08-Mar-2018 Instruction Type:Provider Instructions for Treatment How to access health informa tion online Indication:Non-smoker Start:11-Feb-2018 Instruction Type:Patient Education How to access health informa tion online - Detail Indication:Non-smoker Start:11-Feb-2018 Instruction Type:Patient Education Patient Instructions Indication:Non-smoker Start:11-Feb-2018 Instruction Type:Provider Instructions for Treatment How to access health informa tion online Indication:Non-smoker Start:07-Feb-2018 Instruction Type:Patient Education How to access health informa tion online - Detail Indication:Non-smoker Start:07-Feb-2018 Instruction Type:Patient Education Patient Instructions Indication:Non-smoker Start:07-Feb-2018 Instruction Type:Provider Instructions for Treatment How to access health informa tion online Indication:Non-smoker Start:24-Jan-2018 Instruction Type:Patient Education How to access health informa tion online - Detail Indication:Non-smoker Start:24-Jan-2018 Instruction Type:Patient Education Patient Instructions Indication:Non-smoker Start:24-Jan-2018 Instruction Type:Provider Instructions for Treatment How to access health informa tion online Indication:BMI 23.0-23.9, adult Start:24-Dec-2017 Instruction Type:Patient Education How to access health informa tion online - Detail Indication:BMI 23.0-23.9, adult Start:24-Dec-2017 Instruction Type:Patient Education Patient Instructions Indication:BMI 23.0-23.9, adult Start:24-Dec-2017 Instruction Type:Provider Instructions for Treatment How to access health informa tion online Indication:Non-smoker Start:23-Dec-2017 Instruction Type:Patient Education How to access health informa tion online - Detail Indication:Non-smoker Start:23-Dec-2017 Instruction Type:Patient Education Patient Instructions Indication:Non-smoker Start:23-Dec-2017 Instruction Type:Provider Instructions for Treatment How to access health informa tion online Indication:Non-smoker Start:30-Nov-2017 Instruction Type:Patient Education How to access health informa tion online - Detail Indication:Non-smoker Start:30-Nov-2017 Instruction Type:Patient Education Patient Instructions Indication:Sinusitis, bacterial Start:30-Nov-2017 Instruction Type:Provider Instructions for Treatment How to access health informa tion online Indication:Non-smoker Start:03-Aug-2017 Instruction Type:Patient Education How to access health informa tion online - Detail Indication:Non-smoker Start:03-Aug-2017 Instruction Type:Patient Education Patient Instructions Indication:Non-smoker Start:03-Aug-2017 Instruction Type:Provider Instructions for Treatment How to access health informa tion online Indication:BMI 21.0-21.9, adult Start:31-May-2017 Instruction Type:Patient Education How to access health informa tion online - Detail Indication:BMI 21.0-21.9, adult Start:31-May-2017 Instruction Type:Patient Education Patient Instructions Indication:BMI 21.0-21.9, adult Start:31-May-2017 Instruction Type:Provider Instructions for Treatment How to access health informa tion online Indication:Mild asthma Start:02-Mar-2017 Instruction Type:Patient Education How to access health informa tion online - Detail Indication:Mild asthma Start:02-Mar-2017 Instruction Type:Patient Education Patient Instructions Indication:Mild asthma Start:02-Mar-2017 Instruction Type:Provider Instructions for Treatment How to access health informa tion online Indication:Sore throat Start:10-Feb-2017 Instruction Type:Patient Education How to access health informa tion online - Detail Indication:Sore throat Start:10-Feb-2017 Instruction Type:Patient Education Patient Instructions Indication:Sore throat Start:10-Feb-2017 Instruction Type:Provider Instructions for Treatment How to access health informa tion online Indication:Atypical migraine Start:10-Oct-2015 Instruction Type:Patient Education How to access health informa tion online - Detail Indication:Atypical migraine Start:10-Oct-2015 Instruction Type:Patient Education Patient Instructions Indication:Atypical migraine Start:10-Oct-2015 Instruction Type:Provider Instructions for Treatment How to access health informa tion online Indication:Atypical migraine Start:30-Aug-2015 Instruction Type:Patient Education How to access health informa tion online - Detail Indication:Atypical migraine Start:30-Aug-2015 Instruction Type:Patient Education Patient Instructions Indication:Atypical migraine Start:30-Aug-2015 Instruction Type:Provider Instructions for Treatment Patient Instructions Indication:Vitamin D deficiency Start:09-Aug-2015 Instruction Type:Provider Instructions for Treatment Patient Instructions Indication:Vitamin D deficiency Start:28-Jun-2015 Instruction Type:Provider Instructions for Treatment How to access health informa tion online Indication:Atypical migraine Start:31-May-2015 Instruction Type:Patient Education How to access health informa tion online - Detail Indication:Atypical migraine Start:31-May-2015 Instruction Type:Patient Education Patient Instructions Indication:Atypical migraine Start:31-May-2015 Instruction Type:Provider Instructions for Treatment Patient Instructions Indication:Pleurisy Start:26-Feb-2015 Instruction Type:Provider Instructions for Treatment [facility]; [facility] Work Phone: Instructions* Name Dates Details Patient Instructions Indication:BMI 28.0-28.9,adult Start:24-Dec-2020 Instruction Type:Provider Instructions for Treatment How to Access Health Informa tion Online using Patient Portal and [employer] Apps Indication:BMI 28.0-28.9,adult Start:24-Dec-2020 Instruction Type:Patient Education Patient Instructions Indication:Internal jugular vein thrombosis, right Start:12-Nov-2020 Instruction Type:Provider Instructions for Treatment How to Access Health Informa tion Online using Patient Portal and [employer] Apps Indication:Internal jugular vein thrombosis, right Start:12-Nov-2020 Instruction Type:Patient Education How to access health informa tion online Indication:BMI 22.0-22.9, adult Start:19-Jul-2019 Instruction Type:Patient Education How to access health informa tion online - Detail Indication:BMI 22.0-22.9, adult Start:19-Jul-2019 Instruction Type:Patient Education Patient Instructions Indication:BMI 22.0-22.9, adult Start:19-Jul-2019 Instruction Type:Provider Instructions for Treatment How to access health informa tion online Indication:BMI 22.0-22.9, adult Start:17-May-2019 Instruction Type:Patient Education How to access health informa tion online - Detail Indication:BMI 22.0-22.9, adult Start:17-May-2019 Instruction Type:Patient Education Patient Instructions Indication:BMI 22.0-22.9, adult Start:17-May-2019 Instruction Type:Provider Instructions for Treatment How to access health informa tion online Indication:Non-smoker Start:29-Mar-2019 Instruction Type:Patient Education How to access health informa tion online - Detail Indication:Non-smoker Start:29-Mar-2019 Instruction Type:Patient Education Patient Instructions Indication:Non-smoker Start:29-Mar-2019 Instruction Type:Provider Instructions for Treatment How to access health informa tion online Indication:Non-smoker Start:08-Mar-2019 Instruction Type:Patient Education How to access health informa tion online - Detail Indication:Non-smoker Start:08-Mar-2019 Instruction Type:Patient Education Patient Instructions Indication:Non-smoker Start:08-Mar-2019 Instruction Type:Provider Instructions for Treatment How to access health informa tion online Indication:Insect bite Start:06-Dec-2018 Instruction Type:Patient Education How to access health informa tion online - Detail Indication:Insect bite Start:06-Dec-2018 Instruction Type:Patient Education Patient Instructions Indication:Insect bite Start:06-Dec-2018 Instruction Type:Provider Instructions for Treatment How to access health informa tion online Indication:BMI 22.0-22.9, adult Start:24-Oct-2018 Instruction Type:Patient Education How to access health informa tion online - Detail Indication:BMI 22.0-22.9, adult Start:24-Oct-2018 Instruction Type:Patient Education Patient Instructions Indication:BMI 22.0-22.9, adult Start:24-Oct-2018 Instruction Type:Provider Instructions for Treatment How to access health informa tion online Indication:Non-smoker Start:08-Mar-2018 Instruction Type:Patient Education How to access health informa tion online - Detail Indication:Non-smoker Start:08-Mar-2018 Instruction Type:Patient Education Patient Instructions Indication:Non-smoker Start:08-Mar-2018 Instruction Type:Provider Instructions for Treatment How to access health informa tion online Indication:Non-smoker Start:11-Feb-2018 Instruction Type:Patient Education How to access health informa tion online - Detail Indication:Non-smoker Start:11-Feb-2018 Instruction Type:Patient Education Patient Instructions Indication:Non-smoker Start:11-Feb-2018 Instruction Type:Provider Instructions for Treatment How to access health informa tion online Indication:Non-smoker Start:07-Feb-2018 Instruction Type:Patient Education How to access health informa tion online - Detail Indication:Non-smoker Start:07-Feb-2018 Instruction Type:Patient Education Patient Instructions Indication:Non-smoker Start:07-Feb-2018 Instruction Type:Provider Instructions for Treatment How to access health informa tion online Indication:Non-smoker Start:24-Jan-2018 Instruction Type:Patient Education How to access health informa tion online - Detail Indication:Non-smoker Start:24-Jan-2018 Instruction Type:Patient Education Patient Instructions Indication:Non-smoker Start:24-Jan-2018 Instruction Type:Provider Instructions for Treatment How to access health informa tion online Indication:BMI 23.0-23.9, adult Start:24-Dec-2017 Instruction Type:Patient Education How to access health informa tion online - Detail Indication:BMI 23.0-23.9, adult Start:24-Dec-2017 Instruction Type:Patient Education Patient Instructions Indication:BMI 23.0-23.9, adult Start:24-Dec-2017 Instruction Type:Provider Instructions for Treatment How to access health informa tion online Indication:Non-smoker Start:23-Dec-2017 Instruction Type:Patient Education How to access health informa tion online - Detail Indication:Non-smoker Start:23-Dec-2017 Instruction Type:Patient Education Patient Instructions Indication:Non-smoker Start:23-Dec-2017 Instruction Type:Provider Instructions for Treatment How to access health informa tion online Indication:Non-smoker Start:30-Nov-2017 Instruction Type:Patient Education How to access health informa tion online - Detail Indication:Non-smoker Start:30-Nov-2017 Instruction Type:Patient Education Patient Instructions Indication:Sinusitis, bacterial Start:30-Nov-2017 Instruction Type:Provider Instructions for Treatment How to access health informa tion online Indication:Non-smoker Start:03-Aug-2017 Instruction Type:Patient Education How to access health informa tion online - Detail Indication:Non-smoker Start:03-Aug-2017 Instruction Type:Patient Education Patient Instructions Indication:Non-smoker Start:03-Aug-2017 Instruction Type:Provider Instructions for Treatment How to access health informa tion online Indication:BMI 21.0-21.9, adult Start:31-May-2017 Instruction Type:Patient Education How to access health informa tion online - Detail Indication:BMI 21.0-21.9, adult Start:31-May-2017 Instruction Type:Patient Education Patient Instructions Indication:BMI 21.0-21.9, adult Start:31-May-2017 Instruction Type:Provider Instructions for Treatment How to access health informa tion online Indication:Mild asthma Start:02-Mar-2017 Instruction Type:Patient Education How to access health informa tion online - Detail Indication:Mild asthma Start:02-Mar-2017 Instruction Type:Patient Education Patient Instructions Indication:Mild asthma Start:02-Mar-2017 Instruction Type:Provider Instructions for Treatment How to access health informa tion online Indication:Sore throat Start:10-Feb-2017 Instruction Type:Patient Education How to access health informa tion online - Detail Indication:Sore throat Start:10-Feb-2017 Instruction Type:Patient Education Patient Instructions Indication:Sore throat Start:10-Feb-2017 Instruction Type:Provider Instructions for Treatment How to access health informa tion online Indication:Atypical migraine Start:10-Oct-2015 Instruction Type:Patient Education How to access health informa tion online - Detail Indication:Atypical migraine Start:10-Oct-2015 Instruction Type:Patient Education Patient Instructions Indication:Atypical migraine Start:10-Oct-2015 Instruction Type:Provider Instructions for Treatment How to access health informa tion online Indication:Atypical migraine Start:30-Aug-2015 Instruction Type:Patient Education How to access health informa tion online - Detail Indication:Atypical migraine Start:30-Aug-2015 Instruction Type:Patient Education Patient Instructions Indication:Atypical migraine Start:30-Aug-2015 Instruction Type:Provider Instructions for Treatment Patient Instructions Indication:Vitamin D deficiency Start:09-Aug-2015 Instruction Type:Provider Instructions for Treatment Patient Instructions Indication:Vitamin D deficiency Start:28-Jun-2015 Instruction Type:Provider Instructions for Treatment How to access health informa tion online Indication:Atypical migraine Start:31-May-2015 Instruction Type:Patient Education How to access health informa tion online - Detail Indication:Atypical migraine Start:31-May-2015 Instruction Type:Patient Education Patient Instructions Indication:Atypical migraine Start:31-May-2015 Instruction Type:Provider Instructions for Treatment Patient Instructions Indication:Pleurisy Start:26-Feb-2015 Instruction Type:Provider Instructions for Treatment [facility]; [facility] Work Phone: Instructions* Name Dates Details Patient Instructions Indication:BMI 28.0-28.9,adult Start:24-Dec-2020 Instruction Type:Provider Instructions for Treatment How to Access Health Informa tion Online using Patient Portal and [employer] Apps Indication:BMI 28.0-28.9,adult Start:24-Dec-2020 Instruction Type:Patient Education Patient Instructions Indication:Internal jugular vein thrombosis, right Start:12-Nov-2020 Instruction Type:Provider Instructions for Treatment How to Access Health Informa tion Online using Patient Portal and [employer] Apps Indication:Internal jugular vein thrombosis, right Start:12-Nov-2020 Instruction Type:Patient Education How to access health informa tion online Indication:BMI 22.0-22.9, adult Start:19-Jul-2019 Instruction Type:Patient Education How to access health informa tion online - Detail Indication:BMI 22.0-22.9, adult Start:19-Jul-2019 Instruction Type:Patient Education Patient Instructions Indication:BMI 22.0-22.9, adult Start:19-Jul-2019 Instruction Type:Provider Instructions for Treatment How to access health informa tion online Indication:BMI 22.0-22.9, adult Start:17-May-2019 Instruction Type:Patient Education How to access health informa tion online - Detail Indication:BMI 22.0-22.9, adult Start:17-May-2019 Instruction Type:Patient Education Patient Instructions Indication:BMI 22.0-22.9, adult Start:17-May-2019 Instruction Type:Provider Instructions for Treatment How to access health informa tion online Indication:Non-smoker Start:29-Mar-2019 Instruction Type:Patient Education How to access health informa tion online - Detail Indication:Non-smoker Start:29-Mar-2019 Instruction Type:Patient Education Patient Instructions Indication:Non-smoker Start:29-Mar-2019 Instruction Type:Provider Instructions for Treatment How to access health informa tion online Indication:Non-smoker Start:08-Mar-2019 Instruction Type:Patient Education How to access health informa tion online - Detail Indication:Non-smoker Start:08-Mar-2019 Instruction Type:Patient Education Patient Instructions Indication:Non-smoker Start:08-Mar-2019 Instruction Type:Provider Instructions for Treatment How to access health informa tion online Indication:Insect bite Start:06-Dec-2018 Instruction Type:Patient Education How to access health informa tion online - Detail Indication:Insect bite Start:06-Dec-2018 Instruction Type:Patient Education Patient Instructions Indication:Insect bite Start:06-Dec-2018 Instruction Type:Provider Instructions for Treatment How to access health informa tion online Indication:BMI 22.0-22.9, adult Start:24-Oct-2018 Instruction Type:Patient Education How to access health informa tion online - Detail Indication:BMI 22.0-22.9, adult Start:24-Oct-2018 Instruction Type:Patient Education Patient Instructions Indication:BMI 22.0-22.9, adult Start:24-Oct-2018 Instruction Type:Provider Instructions for Treatment How to access health informa tion online Indication:Non-smoker Start:08-Mar-2018 Instruction Type:Patient Education How to access health informa tion online - Detail Indication:Non-smoker Start:08-Mar-2018 Instruction Type:Patient Education Patient Instructions Indication:Non-smoker Start:08-Mar-2018 Instruction Type:Provider Instructions for Treatment How to access health informa tion online Indication:Non-smoker Start:11-Feb-2018 Instruction Type:Patient Education How to access health informa tion online - Detail Indication:Non-smoker Start:11-Feb-2018 Instruction Type:Patient Education Patient Instructions Indication:Non-smoker Start:11-Feb-2018 Instruction Type:Provider Instructions for Treatment How to access health informa tion online Indication:Non-smoker Start:07-Feb-2018 Instruction Type:Patient Education How to access health informa tion online - Detail Indication:Non-smoker Start:07-Feb-2018 Instruction Type:Patient Education Patient Instructions Indication:Non-smoker Start:07-Feb-2018 Instruction Type:Provider Instructions for Treatment How to access health informa tion online Indication:Non-smoker Start:24-Jan-2018 Instruction Type:Patient Education How to access health informa tion online - Detail Indication:Non-smoker Start:24-Jan-2018 Instruction Type:Patient Education Patient Instructions Indication:Non-smoker Start:24-Jan-2018 Instruction Type:Provider Instructions for Treatment How to access health informa tion online Indication:BMI 23.0-23.9, adult Start:24-Dec-2017 Instruction Type:Patient Education How to access health informa tion online - Detail Indication:BMI 23.0-23.9, adult Start:24-Dec-2017 Instruction Type:Patient Education Patient Instructions Indication:BMI 23.0-23.9, adult Start:24-Dec-2017 Instruction Type:Provider Instructions for Treatment How to access health informa tion online Indication:Non-smoker Start:23-Dec-2017 Instruction Type:Patient Education How to access health informa tion online - Detail Indication:Non-smoker Start:23-Dec-2017 Instruction Type:Patient Education Patient Instructions Indication:Non-smoker Start:23-Dec-2017 Instruction Type:Provider Instructions for Treatment How to access health informa tion online Indication:Non-smoker Start:30-Nov-2017 Instruction Type:Patient Education How to access health informa tion online - Detail Indication:Non-smoker Start:30-Nov-2017 Instruction Type:Patient Education Patient Instructions Indication:Sinusitis, bacterial Start:30-Nov-2017 Instruction Type:Provider Instructions for Treatment How to access health informa tion online Indication:Non-smoker Start:03-Aug-2017 Instruction Type:Patient Education How to access health informa tion online - Detail Indication:Non-smoker Start:03-Aug-2017 Instruction Type:Patient Education Patient Instructions Indication:Non-smoker Start:03-Aug-2017 Instruction Type:Provider Instructions for Treatment How to access health informa tion online Indication:BMI 21.0-21.9, adult Start:31-May-2017 Instruction Type:Patient Education How to access health informa tion online - Detail Indication:BMI 21.0-21.9, adult Start:31-May-2017 Instruction Type:Patient Education Patient Instructions Indication:BMI 21.0-21.9, adult Start:31-May-2017 Instruction Type:Provider Instructions for Treatment How to access health informa tion online Indication:Mild asthma Start:02-Mar-2017 Instruction Type:Patient Education How to access health informa tion online - Detail Indication:Mild asthma Start:02-Mar-2017 Instruction Type:Patient Education Patient Instructions Indication:Mild asthma Start:02-Mar-2017 Instruction Type:Provider Instructions for Treatment How to access health informa tion online Indication:Sore throat Start:10-Feb-2017 Instruction Type:Patient Education How to access health informa tion online - Detail Indication:Sore throat Start:10-Feb-2017 Instruction Type:Patient Education Patient Instructions Indication:Sore throat Start:10-Feb-2017 Instruction Type:Provider Instructions for Treatment How to access health informa tion online Indication:Atypical migraine Start:10-Oct-2015 Instruction Type:Patient Education How to access health informa tion online - Detail Indication:Atypical migraine Start:10-Oct-2015 Instruction Type:Patient Education Patient Instructions Indication:Atypical migraine Start:10-Oct-2015 Instruction Type:Provider Instructions for Treatment How to access health informa tion online Indication:Atypical migraine Start:30-Aug-2015 Instruction Type:Patient Education How to access health informa tion online - Detail Indication:Atypical migraine Start:30-Aug-2015 Instruction Type:Patient Education Patient Instructions Indication:Atypical migraine Start:30-Aug-2015 Instruction Type:Provider Instructions for Treatment Patient Instructions Indication:Vitamin D deficiency Start:09-Aug-2015 Instruction Type:Provider Instructions for Treatment Patient Instructions Indication:Vitamin D deficiency Start:28-Jun-2015 Instruction Type:Provider Instructions for Treatment How to access health informa tion online Indication:Atypical migraine Start:31-May-2015 Instruction Type:Patient Education How to access health informa tion online - Detail Indication:Atypical migraine Start:31-May-2015 Instruction Type:Patient Education Patient Instructions Indication:Atypical migraine Start:31-May-2015 Instruction Type:Provider Instructions for Treatment Patient Instructions Indication:Pleurisy Start:26-Feb-2015 Instruction Type:Provider Instructions for Treatment [facility]; [facility] Work Phone: Instructions* Name Dates Details Patient Instructions Indication:BMI 28.0-28.9,adult Start:24-Dec-2020 Instruction Type:Provider Instructions for Treatment How to Access Health Informa tion Online using Patient Portal and [employer] Apps Indication:BMI 28.0-28.9,adult Start:24-Dec-2020 Instruction Type:Patient Education Patient Instructions Indication:Internal jugular vein thrombosis, right Start:12-Nov-2020 Instruction Type:Provider Instructions for Treatment How to Access Health Informa tion Online using Patient Portal and [employer] Apps Indication:Internal jugular vein thrombosis, right Start:12-Nov-2020 Instruction Type:Patient Education How to access health informa tion online Indication:BMI 22.0-22.9, adult Start:19-Jul-2019 Instruction Type:Patient Education How to access health informa tion online - Detail Indication:BMI 22.0-22.9, adult Start:19-Jul-2019 Instruction Type:Patient Education Patient Instructions Indication:BMI 22.0-22.9, adult Start:19-Jul-2019 Instruction Type:Provider Instructions for Treatment How to access health informa tion online Indication:BMI 22.0-22.9, adult Start:17-May-2019 Instruction Type:Patient Education How to access health informa tion online - Detail Indication:BMI 22.0-22.9, adult Start:17-May-2019 Instruction Type:Patient Education Patient Instructions Indication:BMI 22.0-22.9, adult Start:17-May-2019 Instruction Type:Provider Instructions for Treatment How to access health informa tion online Indication:Non-smoker Start:29-Mar-2019 Instruction Type:Patient Education How to access health informa tion online - Detail Indication:Non-smoker Start:29-Mar-2019 Instruction Type:Patient Education Patient Instructions Indication:Non-smoker Start:29-Mar-2019 Instruction Type:Provider Instructions for Treatment How to access health informa tion online Indication:Non-smoker Start:08-Mar-2019 Instruction Type:Patient Education How to access health informa tion online - Detail Indication:Non-smoker Start:08-Mar-2019 Instruction Type:Patient Education Patient Instructions Indication:Non-smoker Start:08-Mar-2019 Instruction Type:Provider Instructions for Treatment How to access health informa tion online Indication:Insect bite Start:06-Dec-2018 Instruction Type:Patient Education How to access health informa tion online - Detail Indication:Insect bite Start:06-Dec-2018 Instruction Type:Patient Education Patient Instructions Indication:Insect bite Start:06-Dec-2018 Instruction Type:Provider Instructions for Treatment How to access health informa tion online Indication:BMI 22.0-22.9, adult Start:24-Oct-2018 Instruction Type:Patient Education How to access health informa tion online - Detail Indication:BMI 22.0-22.9, adult Start:24-Oct-2018 Instruction Type:Patient Education Patient Instructions Indication:BMI 22.0-22.9, adult Start:24-Oct-2018 Instruction Type:Provider Instructions for Treatment How to access health informa tion online Indication:Non-smoker Start:08-Mar-2018 Instruction Type:Patient Education How to access health informa tion online - Detail Indication:Non-smoker Start:08-Mar-2018 Instruction Type:Patient Education Patient Instructions Indication:Non-smoker Start:08-Mar-2018 Instruction Type:Provider Instructions for Treatment How to access health informa tion online Indication:Non-smoker Start:11-Feb-2018 Instruction Type:Patient Education How to access health informa tion online - Detail Indication:Non-smoker Start:11-Feb-2018 Instruction Type:Patient Education Patient Instructions Indication:Non-smoker Start:11-Feb-2018 Instruction Type:Provider Instructions for Treatment How to access health informa tion online Indication:Non-smoker Start:07-Feb-2018 Instruction Type:Patient Education How to access health informa tion online - Detail Indication:Non-smoker Start:07-Feb-2018 Instruction Type:Patient Education Patient Instructions Indication:Non-smoker Start:07-Feb-2018 Instruction Type:Provider Instructions for Treatment How to access health informa tion online Indication:Non-smoker Start:24-Jan-2018 Instruction Type:Patient Education How to access health informa tion online - Detail Indication:Non-smoker Start:24-Jan-2018 Instruction Type:Patient Education Patient Instructions Indication:Non-smoker Start:24-Jan-2018 Instruction Type:Provider Instructions for Treatment How to access health informa tion online Indication:BMI 23.0-23.9, adult Start:24-Dec-2017 Instruction Type:Patient Education How to access health informa tion online - Detail Indication:BMI 23.0-23.9, adult Start:24-Dec-2017 Instruction Type:Patient Education Patient Instructions Indication:BMI 23.0-23.9, adult Start:24-Dec-2017 Instruction Type:Provider Instructions for Treatment How to access health informa tion online Indication:Non-smoker Start:23-Dec-2017 Instruction Type:Patient Education How to access health informa tion online - Detail Indication:Non-smoker Start:23-Dec-2017 Instruction Type:Patient Education Patient Instructions Indication:Non-smoker Start:23-Dec-2017 Instruction Type:Provider Instructions for Treatment How to access health informa tion online Indication:Non-smoker Start:30-Nov-2017 Instruction Type:Patient Education How to access health informa tion online - Detail Indication:Non-smoker Start:30-Nov-2017 Instruction Type:Patient Education Patient Instructions Indication:Sinusitis, bacterial Start:30-Nov-2017 Instruction Type:Provider Instructions for Treatment How to access health informa tion online Indication:Non-smoker Start:03-Aug-2017 Instruction Type:Patient Education How to access health informa tion online - Detail Indication:Non-smoker Start:03-Aug-2017 Instruction Type:Patient Education Patient Instructions Indication:Non-smoker Start:03-Aug-2017 Instruction Type:Provider Instructions for Treatment How to access health informa tion online Indication:BMI 21.0-21.9, adult Start:31-May-2017 Instruction Type:Patient Education How to access health informa tion online - Detail Indication:BMI 21.0-21.9, adult Start:31-May-2017 Instruction Type:Patient Education Patient Instructions Indication:BMI 21.0-21.9, adult Start:31-May-2017 Instruction Type:Provider Instructions for Treatment How to access health informa tion online Indication:Mild asthma Start:02-Mar-2017 Instruction Type:Patient Education How to access health informa tion online - Detail Indication:Mild asthma Start:02-Mar-2017 Instruction Type:Patient Education Patient Instructions Indication:Mild asthma Start:02-Mar-2017 Instruction Type:Provider Instructions for Treatment How to access health informa tion online Indication:Sore throat Start:10-Feb-2017 Instruction Type:Patient Education How to access health informa tion online - Detail Indication:Sore throat Start:10-Feb-2017 Instruction Type:Patient Education Patient Instructions Indication:Sore throat Start:10-Feb-2017 Instruction Type:Provider Instructions for Treatment How to access health informa tion online Indication:Atypical migraine Start:10-Oct-2015 Instruction Type:Patient Education How to access health informa tion online - Detail Indication:Atypical migraine Start:10-Oct-2015 Instruction Type:Patient Education Patient Instructions Indication:Atypical migraine Start:10-Oct-2015 Instruction Type:Provider Instructions for Treatment How to access health informa tion online Indication:Atypical migraine Start:30-Aug-2015 Instruction Type:Patient Education How to access health informa tion online - Detail Indication:Atypical migraine Start:30-Aug-2015 Instruction Type:Patient Education Patient Instructions Indication:Atypical migraine Start:30-Aug-2015 Instruction Type:Provider Instructions for Treatment Patient Instructions Indication:Vitamin D deficiency Start:09-Aug-2015 Instruction Type:Provider Instructions for Treatment Patient Instructions Indication:Vitamin D deficiency Start:28-Jun-2015 Instruction Type:Provider Instructions for Treatment How to access health informa tion online Indication:Atypical migraine Start:31-May-2015 Instruction Type:Patient Education How to access health informa tion online - Detail Indication:Atypical migraine Start:31-May-2015 Instruction Type:Patient Education Patient Instructions Indication:Atypical migraine Start:31-May-2015 Instruction Type:Provider Instructions for Treatment Patient Instructions Indication:Pleurisy Start:26-Feb-2015 Instruction Type:Provider Instructions for Treatment [facility] Work Phone: Instructions* Name Dates Details Patient Instructions Indication:BMI 28.0-28.9,adult Start:24-Dec-2020 Instruction Type:Provider Instructions for Treatment How to Access Health Informa tion Online using Patient Portal and 3rd [employer] Apps Indication:BMI 28.0-28.9,adult Start:24-Dec-2020 Instruction Type:Patient Education Patient Instructions Indication:Internal jugular vein thrombosis, right Start:12-Nov-2020 Instruction Type:Provider Instructions for Treatment How to Access Health Informa tion Online using Patient Portal and 3rd [employer] Apps Indication:Internal jugular vein thrombosis, right Start:12-Nov-2020 Instruction Type:Patient Education How to access health informa tion online Indication:BMI 22.0-22.9, adult Start:19-Jul-2019 Instruction Type:Patient Education How to access health informa tion online - Detail Indication:BMI 22.0-22.9, adult Start:19-Jul-2019 Instruction Type:Patient Education Patient Instructions Indication:BMI 22.0-22.9, adult Start:19-Jul-2019 Instruction Type:Provider Instructions for Treatment How to access health informa tion online Indication:BMI 22.0-22.9, adult Start:17-May-2019 Instruction Type:Patient Education How to access health informa tion online - Detail Indication:BMI 22.0-22.9, adult Start:17-May-2019 Instruction Type:Patient Education Patient Instructions Indication:BMI 22.0-22.9, adult Start:17-May-2019 Instruction Type:Provider Instructions for Treatment How to access health informa tion online Indication:Non-smoker Start:29-Mar-2019 Instruction Type:Patient Education How to access health informa tion online - Detail Indication:Non-smoker Start:29-Mar-2019 Instruction Type:Patient Education Patient Instructions Indication:Non-smoker Start:29-Mar-2019 Instruction Type:Provider Instructions for Treatment How to access health informa tion online Indication:Non-smoker Start:08-Mar-2019 Instruction Type:Patient Education How to access health informa tion online - Detail Indication:Non-smoker Start:08-Mar-2019 Instruction Type:Patient Education Patient Instructions Indication:Non-smoker Start:08-Mar-2019 Instruction Type:Provider Instructions for Treatment How to access health informa tion online Indication:Insect bite Start:06-Dec-2018 Instruction Type:Patient Education How to access health informa tion online - Detail Indication:Insect bite Start:06-Dec-2018 Instruction Type:Patient Education Patient Instructions Indication:Insect bite Start:06-Dec-2018 Instruction Type:Provider Instructions for Treatment How to access health informa tion online Indication:BMI 22.0-22.9, adult Start:24-Oct-2018 Instruction Type:Patient Education How to access health informa tion online - Detail Indication:BMI 22.0-22.9, adult Start:24-Oct-2018 Instruction Type:Patient Education Patient Instructions Indication:BMI 22.0-22.9, adult Start:24-Oct-2018 Instruction Type:Provider Instructions for Treatment How to access health informa tion online Indication:Non-smoker Start:08-Mar-2018 Instruction Type:Patient Education How to access health informa tion online - Detail Indication:Non-smoker Start:08-Mar-2018 Instruction Type:Patient Education Patient Instructions Indication:Non-smoker Start:08-Mar-2018 Instruction Type:Provider Instructions for Treatment How to access health informa tion online Indication:Non-smoker Start:11-Feb-2018 Instruction Type:Patient Education How to access health informa tion online - Detail Indication:Non-smoker Start:11-Feb-2018 Instruction Type:Patient Education Patient Instructions Indication:Non-smoker Start:11-Feb-2018 Instruction Type:Provider Instructions for Treatment How to access health informa tion online Indication:Non-smoker Start:07-Feb-2018 Instruction Type:Patient Education How to access health informa tion online - Detail Indication:Non-smoker Start:07-Feb-2018 Instruction Type:Patient Education Patient Instructions Indication:Non-smoker Start:07-Feb-2018 Instruction Type:Provider Instructions for Treatment How to access health informa tion online Indication:Non-smoker Start:24-Jan-2018 Instruction Type:Patient Education How to access health informa tion online - Detail Indication:Non-smoker Start:24-Jan-2018 Instruction Type:Patient Education Patient Instructions Indication:Non-smoker Start:24-Jan-2018 Instruction Type:Provider Instructions for Treatment How to access health informa tion online Indication:BMI 23.0-23.9, adult Start:24-Dec-2017 Instruction Type:Patient Education How to access health informa tion online - Detail Indication:BMI 23.0-23.9, adult Start:24-Dec-2017 Instruction Type:Patient Education Patient Instructions Indication:BMI 23.0-23.9, adult Start:24-Dec-2017 Instruction Type:Provider Instructions for Treatment How to access health informa tion online Indication:Non-smoker Start:23-Dec-2017 Instruction Type:Patient Education How to access health informa tion online - Detail Indication:Non-smoker Start:23-Dec-2017 Instruction Type:Patient Education Patient Instructions Indication:Non-smoker Start:23-Dec-2017 Instruction Type:Provider Instructions for Treatment How to access health informa tion online Indication:Non-smoker Start:30-Nov-2017 Instruction Type:Patient Education How to access health informa tion online - Detail Indication:Non-smoker Start:30-Nov-2017 Instruction Type:Patient Education Patient Instructions Indication:Sinusitis, bacterial Start:30-Nov-2017 Instruction Type:Provider Instructions for Treatment How to access health informa tion online Indication:Non-smoker Start:03-Aug-2017 Instruction Type:Patient Education How to access health informa tion online - Detail Indication:Non-smoker Start:03-Aug-2017 Instruction Type:Patient Education Patient Instructions Indication:Non-smoker Start:03-Aug-2017 Instruction Type:Provider Instructions for Treatment How to access health informa tion online Indication:BMI 21.0-21.9, adult Start:31-May-2017 Instruction Type:Patient Education How to access health informa tion online - Detail Indication:BMI 21.0-21.9, adult Start:31-May-2017 Instruction Type:Patient Education Patient Instructions Indication:BMI 21.0-21.9, adult Start:31-May-2017 Instruction Type:Provider Instructions for Treatment How to access health informa tion online Indication:Mild asthma Start:02-Mar-2017 Instruction Type:Patient Education How to access health informa tion online - Detail Indication:Mild asthma Start:02-Mar-2017 Instruction Type:Patient Education Patient Instructions Indication:Mild asthma Start:02-Mar-2017 Instruction Type:Provider Instructions for Treatment How to access health informa tion online Indication:Sore throat Start:10-Feb-2017 Instruction Type:Patient Education How to access health informa tion online - Detail Indication:Sore throat Start:10-Feb-2017 Instruction Type:Patient Education Patient Instructions Indication:Sore throat Start:10-Feb-2017 Instruction Type:Provider Instructions for Treatment How to access health informa tion online Indication:Atypical migraine Start:10-Oct-2015 Instruction Type:Patient Education How to access health informa tion online - Detail Indication:Atypical migraine Start:10-Oct-2015 Instruction Type:Patient Education Patient Instructions Indication:Atypical migraine Start:10-Oct-2015 Instruction Type:Provider Instructions for Treatment How to access health informa tion online Indication:Atypical migraine Start:30-Aug-2015 Instruction Type:Patient Education How to access health informa tion online - Detail Indication:Atypical migraine Start:30-Aug-2015 Instruction Type:Patient Education Patient Instructions Indication:Atypical migraine Start:30-Aug-2015 Instruction Type:Provider Instructions for Treatment Patient Instructions Indication:Vitamin D deficiency Start:09-Aug-2015 Instruction Type:Provider Instructions for Treatment Patient Instructions Indication:Vitamin D deficiency Start:28-Jun-2015 Instruction Type:Provider Instructions for Treatment How to access health informa tion online Indication:Atypical migraine Start:31-May-2015 Instruction Type:Patient Education How to access health informa tion online - Detail Indication:Atypical migraine Start:31-May-2015 Instruction Type:Patient Education Patient Instructions Indication:Atypical migraine Start:31-May-2015 Instruction Type:Provider Instructions for Treatment Patient Instructions Indication:Pleurisy Start:26-Feb-2015 Instruction Type:Provider Instructions for Treatment [facility] Work Phone: progress note Author Katie Mayo [facility] Note Date/Time September 14, 2024 8:33a m [facility] [address] [place] [address] OFFICE VISIT Date of Service: 09/14/24 MR#: [id number] Acct: [id number] Name: DOUG FLANAGAN Rep #: [id number] : 1990 Provider: BRANDON Dunaway Age/Sex: 34/F Location[place] [facility] [email or web address] Status: Signed Intake Vital Signs 07/26/24 14:04 08/18/24 11:44 Height 5 ft 2 in 5 ft 2 in Intake Visit Reasons: 1 M FU Chief Complaint: constipation Allergies levetiracetam (From Keppra) Allergy (Verified 08/18/24 11:44) Other Penicillins Allergy (Verified 08/18/24 11:44) Rash phenytoin (From Dilantin) Allergy (Verified 08/18/24 11:44) PT UNSURE OF REACTION prochlorperazine (From Compazine) Allergy (Verified 08/18/24 11:44) Other shellfish derived Allergy (Verified 08/18/24 11:44) Other soy Adverse Reaction (Verified 08/18/24 11:44) NEEDS FOLLOW-UP Medications ?Medication ?Instructions ?Recorded ?Confirmed ?Type levonorgestrel (Mirena) 20 mcg intrauterine UD 10/14/20 08/16/24 History control diazepam 10 mg/spray (0.1 mL) 10 mg intranasal PRN PRN Seizures 08/08/22 08/16/24 History nasal spray (Valtoco) zonisamide 100 mg capsule 300 mg (3 x 100 mg) PO QPM 1 06/13/23 08/16/24 Rx seizures #90 caps escitalopram oxalate 10 mg tablet 10 mg PO QHS #30 tab s 07/06/24 08/16/24 Rx (Lexapro) lamotrigine 250 mg tablet,extended 250 mg PO BID seizu res #60 tabs 07/06/24 08/16/24 Rx release 24 hr zonisamide 100 mg capsule See Rx Instructions .Route 0 07/06/24 08/16/24 Rx .COMPLEX seizures #150 caps ravulizumab-cwvz 100 mg/mL 3,300 mg (33 mL) .Route .q8 weeks 07/27/24 08/16/24 Rx intravenous solution (Ultomiris) #33 mL Patient : No Nurse's Note: OV 09/14/24 Pt here for f/u and reports constipation, nausea and abdominal pain.Pt reports she is eating soft foods which has helped relieve gas and bloating. Reports a bm every 3 days. Pt is not taking Amitiza due to unwanted side effects. Takes prune ex to relieve constipation as needed. REPLACED BY [facility] Medical History Encounter to establish care Chronic abdominal pain Chronic constipation Hx of peripheral vascular disease Normal echocardiogram (~05/18/16) Anemia Migraine headache Injury of head and neck Seizures Difficulty swallowing Difficulty chewing Non-smoker Shortness of breath on exertion Leg cramps History of stress test Chest pain Myasthenia gravis Surgical History History of colonoscopy (04/02/22) Hx of appendectomy Hx of total hip arthroplasty Hx of thymectomy Family History Mother Heart disease Cervical cancer Father No problems noted. Social History household members: children current occupational status: disabled pets and animals: Yes pets and animals: dog(s) and turtle(s) Smoking Status: Never smoker second hand exposure: Yes alcohol intake: never substance use type: does not use caffeine: Yes (1 cup coffee daily on avg) Type: coffee do you feel safe at home: Yes HPI HPI Chief Complaint: constipation Details: DOUG FLANAGAN, is a 34 F who presents to the office today for f/u. [facility] established 08.16.24 with constipation and abd pain. Worsening constipation over the past year with a bm once a week. She has a hx of myasthenia gravis. Pt was prescribed Linzess but too nervous to try due to hx of MG. Sitz marker ordered. Recommended Amitiza. Sitz marker; slow transit constipation Biochemical work up; celiac wnl, food allergen wnl OV 5; Pt continues to have constipation. She tried Amitiza however this causes severe abd bloating so she discontinued it. She is now taking prunelax every 3 days which helps some. She will not have a bm unless she takes this. Shehas been eating mostly baby food which has made her feel much better. She has less boating and fatigue. ROS Const Constitutional: No fatigue, fever(s) or weight change ENT ENT: No difficulty swallowing Gastro GI: Positive for abdominal pain, constipation and nausea/dyspepsia; No belching, bloating, change in bowel habits, change in stool character, coffeeground emesis, cramping, diarrhea, heartburn, difficulty swallowing, feeling full early, excessive flatus, incontinent of stools, Vomiting blood/hematemesis,Blood in stool, loose stools, Black,tarry stools, pain with swallowing, vomitingor other Musc Musculoskeletal: No joint pain Skin Skin: No yellowing of the eye or itchy eyes Neuro Neurology: Positive for seizures Psych Psychiatric: No anxiety and No depression Endo Endocrine: No fatigue or weight change Aller/Imm Allergy/Immunologic: No itchy eyes Cleve/Lymp Hematologic/Lymphatic: No easy bleeding or easy bruising Exam Const General: cooperative, healthy appearing and comfortable Nutritional Appearance: average body habitus HENMT Head: normal to inspection Eyes General: appearance normal, both eyes and all related structures Neck Neck: normal visual inspection Chest Chest palpation & inspection: normal inspection of the chest Resp Effort & Inspection: normal respiratory effort GI Inspection: normal to inspection Palpation: soft Assessment and Plan Assessment and Plan (1) Bloating: Status: Acute Plan: This is a 34 yo female pt with PMHx of myasthenia gravis here today for f/u regarding her constipation and bloating. She underwent work up including sitz marker testing, celiac panel and food allergens. Sitz marker showed slow transitconstipation with numerous sitz markers still in the colon by day 5. Celiac and food allergens without abnormalities. She trial Amitiza however this gave her severe abdominal cramping and she discontinued it. She takes Prune lax as needed. She started a very soft food diet with mostly baby food which as given her relief from her bloating and increased energy. I have recommended a GES as she may have gastroparesis as evidenced by improvement in her symptoms with softeasy to digest foods. She will try 1 tablespoon of mineral oil daily for constipation. -GES -Start mineral oil 1 tablespoon per day -Gastroparesis diet give -f/u after test (2) Chronic constipation: Status: Chronic Orders: Orders Gastric Emptying Study Today K59.09 - Other constipation, R14.0 - Abdominal distension (gaseous) Coding Level of Care Code Off vis,est,level 3 Diagnoses Bloating R14.0 Chronic constipation K59.09 09/14/24 0833 <Electronically signed by Katie TAYLOR> Date _ Katie TAYLOR Cosigner Signature: Date (if applicable) CC: ~ [facility] Work Phone: Reason for referral (narrative)* Outpatient Procedure (Routine) - Pending Review Specialty Diagnoses / Procedures Referred By Arnaud rosario Referred To Contact [facility] Diagnoses Encounter for IUD removal Pelvic pain in female Procedures INSERT INTRAUTERINE DEVICE LEVONORGESTREL IU 52MG 5 YR INSERT INTRAUTERINE DEVICE Louise Flanagan APRN.CNM [address] [place] [address] [facility] [place] [address] [place] [address] Referral ID Status Reason Start Date Expiration Date Visits Requested Visits Authorized [id number] Pending Review Auto-Generat ed Referral 07/24/2021 07/24/2022 1 1 * Outpatient Procedure (Routine) - Pending Review Specialty Diagnoses / Procedures Referred By Contac t Referred To Contact [facility] Diagnoses Encounter for IUD removal Pelvic pain in female Procedures REMOVE INTRAUTERINE DEVICE REMOVE INTRAUTERINE DEVICE Louise Flanagan APRN.CNM [address] [place] [address] [facility] [place] [place] [address] [place] [address] Referral ID Status Reason Start Date Expiration Date Visits Requested Visits Authorized [id number] Pending Review Auto-Generat ed Referral 07/24/2021 07/24/2022 1 1 [facility] for referral (narrative)* Diagnostic Procedure Only (Urgent) - Pending Review Specialty Diagnoses / Procedures Referred By Contac t Referred To Contact US IMAGING Diagnoses Acute pain of left lower extremity Procedures US DVT LOWER LT DUP-SCAN XTR VEINS UNILATERAL/LIMITED STUDY Maya Puente APRN.[employer] [address] [place] [address] Us Imaging Referral ID Status Reason Start Date Expiration Date Visits Requested Visits Authorized [id number] Pending Review Auto-Generat ed Referral 12/01/2021 12/31/2022 1 1 * Diagnostic Procedure Only (Urgent) - Closed Specialty Diagnoses / Procedures Referred By Contac t Referred To Contact XR IMAGING Diagnoses Acute pain of left lower extremity Procedures XR TIBIA FIBULA 2V AP/LAT LEFT RADIOLOGIC EXAMINATION TIBIA & FIBULA 2 VIEWS Maya Puente APRN.[employer] [address] [place] [address] Xr Imaging Referral ID Status Reason Start Date Expiration Date V isits Requested Visits Authorized [id number] Closed Auto-Generate d Referral 12/01/2021 12/31/2022 1 1 * Diagnostic Procedure Only (Urgent) - Closed Specialty Diagnoses / Procedures Referred By Contac t Referred To Contact XR IMAGING Diagnoses Acute pain of left lower extremity Procedures XR FOOT GENERAL 3V AP/LAT/OBL LEFT RADEX FOOT COMPLETE MINIMUM 3 VIEWS Maya Puente APRN.[employer] SUPER[employer]OR [address] [place] [address] Xr Imaging Referral ID Status Reason Start Date Expiration Date V isits Requested Visits Authorized [id number] Closed Auto-Generate d Referral 12/01/2021 12/31/2022 1 1 [facility] for referral (narrative)* Diagnostic Procedure Only (Urgent) - Closed Specialty Diagnoses / Procedures Referred By Contac t Referred To Contact XR IMAGING Diagnoses Rib pain Procedures XR RIBS/CHEST 3V AP RIB/OBLS/CXR LEFT RADEX RIBS UNI W/POSTEROANT CH MINIMUM 3 VIEWS Louise Soriano APRN.PLATFORM MATERIAL HANDLING SUPERVISOR [address] [place] [address] Xr Imaging Referral ID Status Reason Start Date Expiration Date V isits Requested Visits Authorized [id number] Closed Auto-Generate d Referral 12/22/2021 01/21/2023 1 1 [facility] for referral (narrative)* Diagnostic Procedure Only (Urgent) - Closed Specialty Diagnoses / Procedures Referred By Contac t Referred To Contact XR IMAGING Diagnoses Acute constipation Generalized abdominal pain Procedures XR ABDOMEN 2V ROUTINE SUPINE W UPRIGHT/DECUB/CTL RADIOLOGIC EXAM ABDOMEN 2 VIEWS Becky Becerra PA-C [address] [place] [address] Xr Imaging Referral ID Status Reason Start Date Expiration Date V isits Requested Visits Authorized [id number] Closed Auto-Generate d Referral 04/01/2022 05/01/2023 1 1 [facility] (n[facility]ative)* Outpatient Procedure (Routine) - Authorized Specialty Diagnoses / Procedures Referred By Arnaud t Referred To Contact [facility] Diagnoses Generalized abdominal pain Change in bowel habits Procedures COLONOSCOPY DIAGNOSTIC COLONOSCOPY FLX DX W/COLLJ SPEC WHEN PFRMD Becky Becerra PA-C [address] [place] [address] [facility] [address] [place] [address] Referral ID Status Reason Start Date Expiration Date Visits Requested Visits Authorized [id number] Authorized Auto-Generat ed Referral 04/06/2022 04/06/2023 1 1 [facility] (narrative)* Outpatient Procedure (Routine) - Pending Review Specialty Diagnoses / Procedures Referred By Arnaud rosario Referred To Contact [facility] Diagnoses LLOYD II (cervical intraepithelial neoplasia II) Cervical high risk human papillomavirus (HPV) DNA test positive Procedures COLPOSCOPY COLPOSCOPY CERVIX BX CERVIX & ENDOCRV CURRETAGE Sarah Pop MD [address] [place] [address] [facility] [place] [place] [address] [place] [address] Referral ID Status Reason Start Date Expiration Date Visits Requested Visits Authorized [id number] Pending Review Auto-Generat ed Referral 2 04/29/2023 1 1 [facility] (narrative)* Consultation (Routine) - Pending Review Specialty Diagnoses / Procedures Referred By Arnaud t Referred To Contact Neurology Diagnoses Breakthrough seizure Merrick Lopez MD [address] [place] [address] Referral ID Status Reason Start Date Expiration Date V isits Requested Visits Authorized [id number] Pending Review 11/02/2022 11/27/2023 1 1 * Transfer of Care (Routine) - Pending Review Specialty Diagnoses / Procedures Referred By Arnaud rosario Referred To Contact Occupational Therapy Diagnoses Myasthenia gravis Adolfo Flores MD [address] [place] [address] Referral ID Status Reason Start Date Expiration Date V isits Requested Visits Authorized [id number] Pending Review 11/02/2022 11/27/2023 1 1 Scheduling Instructions [facility] [address] [facility] 2nd [address] [facility] [place], [place] [id number] FAX Outpatient Rehabilitation Outpatient [facility] [place] [address] [place] [address], [address] [place] [address] FAX [facility] [address] [address] FAX [facility] (Upper Extremity and Hand Therapy) [address] [facility], [address] [facility] [id number] FAX [facility] [address] [place], [place] [id number] FAX Outpatient Rehabilitation Outpatient Care [address] [place] [address] FAX * Adjunctive Therapy (Routine) - Pending Review Specialty Diagnoses / Procedures Referred By Arnaud rosario Referred To Contact Physical Therapy Diagnoses Myasthenia gravis Adolfo Flores MD [address] [place] [address] Referral ID Status Reason Start Date Expiration Date V isits Requested Visits Authorized [id number] Pending Review 11/02/2022 11/27/2023 1 1 Scheduling Instructions [facility] [address] [facility] [place] [address] Fax [facility] (Neck and Back Therapy) [address] [place], [place] [address] FAX [facility] [address] [address] FAX Outpatient [facility] [place] [address] [facility] [address] [place] [address] FAX [facility] [address] [place] [address] [facility]X [facility] [address] [place], [place] [address] FAX [facility] [address] [place], [place] [address] [phone] FAX Continued on next page Outpatient Rehabilitation Outpatient Care [address] [place] [address] FAX [facility] [address] [facility] [facility], [address] [place] [address] FAX * Consultation (Routine) - Pending Review Specialty Diagnoses / Procedures Referred By Contac t Referred To Contact Neurology Diagnoses Myasthenia gravis Adolfo Flores MD [address] [place] [address] Referral ID Status Reason Start Date Expiration Date V isits Requested Visits Authorized [id number] Pending Review 11/02/2022 11/27/2023 1 1 * (Routine) - Pending Review Specialty Diagnoses / Procedures Referred By Contac t Referred To Contact Procedures DVT/VTE RISK ASSESSMENT Nancy Faith MD [address] [place] [address] Referral ID Status Reason Start Date Expiration Date V isits Requested Visits Authorized [id number] Pending Review 10/29/2022 11/23/2023 1 1 [facility] Diagnostic Procedure Only (Urgent) - Closed Specialty Diagnoses / Procedures Referred By Contac t Referred To Contact XR IMAGING Diagnoses Acute constipation Generalized abdominal pain Procedures XR ABDOMEN 2V ROUTINE SUPINE W UPRIGHT/DECUB/CTL RADIOLOGIC EXAM ABDOMEN 2 VIEWS Becky Lubin PA-C [address] [place] [address] [place] [address] Referral ID Status Reason Start Date Expiration Date V isits Requested Visits Authorized [id number] Closed Auto-Generate d Referral 04/01/2022 05/01/2023 1 1 [facility] (n[facility])* Outpatient Procedure (Routine) - Closed Specialty Diagnoses / Procedures Referred By Contac t Referred To Contact [facility] Diagnoses Generalized abdominal pain Change in bowel habits Procedures COLONOSCOPY DIAGNOSTIC COLONOSCOPY FLX DX W/COLLJ SPEC WHEN PFRMD Becky Lubin PA-C [address] [place] [address] [facility] [address] [place] [address] Referral ID Status Reason Start Date Expiration Date V isits Requested Visits Authorized [id number] Closed Auto-Generate d Referral 04/06/2022 04/06/2023 1 1 [facility] for referral (narrative)* Diagnostic Procedure Only (Urgent) - Closed Specialty Diagnoses / Procedures Referred By Contac t Referred To Contact XR IMAGING Diagnoses Rib pain Procedures XR RIBS/CHEST 3V AP RIB/OBLS/CXR LEFT RADEX RIBS UNI W/POSTEROANT CH MINIMUM 3 VIEWS Louise Soriano, TAMEKA.PLATFORM MATERIAL HANDLING SUPERVISOR [address] [place] [address] [place] [address] Referral ID Status Reason Start Date Expiration Date V isits Requested Visits Authorized [id number] Closed Auto-Generate d Referral 12/22/2021 01/21/2023 1 1 Electronically signed by Louise Soriano CUSTOMER SALES REPRESENTATIVE.PLATFORM MATERIAL HANDLING SUPERVISOR at 12/22/2021 7:01 PM EDT [facility] for referral (narrative)No reason for referral information availableWAultman [facility] Work Phone: Reason for visit Narrative* Diagnostic Procedure Only (Urgent) - Closed Specialty Diagnoses / Procedures Referred By Contac t Referred To Contact XR IMAGING Diagnoses Acute constipation Generalized abdominal pain Procedures XR ABDOMEN 2V ROUTINE SUPINE W UPRIGHT/DECUB/CTL RADIOLOGIC EXAM ABDOMEN 2 VIEWS Becky Lubin PA-C [address] [place] [address] [place] [address] Referral ID Status Reason Start Date Expiration Date V isits Requested Visits Authorized [id number] Closed Auto-Generate d Referral 04/01/2022 05/01/2023 1 1 [facility] for visit Narrative* Outpatient Procedure (Routine) - Closed Specialty Diagnoses / Procedures Referred By Contac t Referred To Contact [facility] Diagnoses Generalized abdominal pain Change in bowel habits Procedures COLONOSCOPY DIAGNOSTIC COLONOSCOPY FLX DX W/COLLJ SPEC WHEN PFRMD Becky Lubin PA-C [address] [place] [address] [facility] [address] [place] [address] Referral ID Status Reason Start Date Expiration Date V isits Requested Visits Authorized [id number] Closed Auto-Generate d Referral 04/06/2022 04/06/2023 1 1 [facility] for visit Narrative* Diagnostic Procedure Only (Urgent) - Closed Specialty Diagnoses / Procedures Referred By Contac t Referred To Contact XR IMAGING Diagnoses Rib pain Procedures XR RIBS/CHEST 3V AP RIB/OBLS/CXR LEFT RADEX RIBS UNI W/POSTEROANT CH MINIMUM 3 VIEWS Louise Soriano, CUSTOMER SALES REPRESENTATIVE.PLATFORM MATERIAL HANDLING SUPERVISOR [address] [place] [address] [place] [address] Referral ID Status Reason Start Date Expiration Date V isits Requested Visits Authorized [id number] Closed Auto-Generate d Referral 12/22/2021 01/21/2023 1 1 [facility] for visit Narrative* Diagnostic Procedure Only (Urgent) - Closed Specialty Diagnoses / Procedures Referred By Contac t Referred To Contact XR IMAGING Diagnoses Acute pain of left lower extremity Procedures XR TIBIA FIBULA 2V AP/LAT LEFT RADIOLOGIC EXAMINATION TIBIA & FIBULA 2 VIEWS Maya Puente CUSTOMER SALES REPRESENTATIVE.PLATFORM MATERIAL HANDLING SUPERVISOR [address] [place] [address] [place] [address] Referral ID Status Reason Start Date Expiration Date V isits Requested Visits Authorized [id number] Closed Auto-Generate d Referral 12/01/2021 12/31/2022 1 1 [facility] Summary Purpose Family History Relationship Condition Age at Onset Recorded Date/T sana Unknown Family History?- Unknown March 262018 11:38pm Family History?- Unknown March 262018 11:38pm Family History?No pe rtinent history Unknown February 22, 2015 1:48am Relationship Condition Age at Onset Recorded Date/T sana Unknown Family History?- Unknown March 262018 10:38pm Family History?- Unknown March 262018 10:38pm Family History?No pe rtinent history Unknown February 22, 2015 12:48am Relationship Condition Age at Onset Recorded Date/T sana mother Cardiac disease Unknown Malignant neoplasm of cervix Unknown Advance Directives Documents on File Type Date Recorded 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 Expiration date unspecified Effective:28-Apr-2019 Documents on File Type Date Recorded Patient Economic Development Director Expl anation ACP-Advance Directive ACP-Power of Plateman Latest Code Status on File Code Status Date Activated Date Inactivated Comments Full Code 10/07/2019 2:56 AM 10/08/2019 1:45 PM Name Dates Details Immunization Registry [place] - Effective on 04/28/2019. Expiration date unspecified Effective:28-Apr-2019 Name Dates Details Immunization Registry [place] - Effective on 04/28/2019. Expiration date unspecified Effective:28-Apr-2019 Name Dates Details Immunization Registry [place] - Effective on 04/28/2019. Expiration date unspecified Effective:28-Apr-2019 Name Dates Details Immunization Registry [place] - Effective on 04/28/2019. Expiration date unspecified Effective:28-Apr-2019 Name Dates Details Immunization Registry [place] - Effective on 04/28/2019. Expiration date unspecified Effective:28-Apr-2019 Name Dates Details Immunization Registry [place] - Effective on 04/28/2019. Expiration date unspecified Effective:28-Apr-2019 Advance Directive Response Recorded Date/ Time Advance Directives No February 22, 2015 1:10am Living Will No February 17 10:03pm Power of Plateman No February 17, 2021 10:03pm Advance Directive Response Recorded Date/ Time Advance Directives No February 22, 2015 1:10am Living Will No August 15, 2021 11:17am Power of Plateman No August 15 11:17am Name Dates Details Immunization Registry [place] - Effective on 04/28/2019. Expiration date unspecified Effective:28-Apr-2019 Advance Directive Response Recorded Date/ Time Advance Directives No February 22, 2015 1:10am Living Will No October 09, 2021 2 :05pm Power of Plateman No October 09, 2021 2:05pm Advance Directive Response Recorded Date/ Time Advance Directives No February 22, 2015 1:10am Living Will No February 05 2 3:46pm Power of Plateman No February 05 022 3:46pm Advance Directive Response Recorded Date/ Time Advance Directives No February 22, 2015 12:10am Living Will No March 27, 2 022 9:24am Power of Plateman No March 27, 2022 9:24am Name Dates Details Immunization Registry [place] - Effective on 04/28/2019. Expiration date unspecified Effective:28-Apr-2019 Advance Directive Response Recorded Date/ Time Advance Directives No February 22, 2015 12:10am Living Will No May 27 12:27pm Power of Plateman No May 27, 2022 12:27pm Advance Directive Response Recorded Date/ Time Advance Directives No February 22, 2015 1:10am Living Will No July 17, 2022 5:18pm Power of Plateman No July 17 5:18pm Latest Code Status on File Code Status Date Activated Date Inactivated Comments Full Code 07/30/2022 6:06 PM Latest Code Status on File Code Status Date Activated Date Inactivated Comments Full Code 07/30/2022 6:06 PM Latest Code Status on File Code Status Date Activated Date Inactivated Comments Full Code 07/30/2022 6:06 PM 08/07/2022 7:14 PM Advance Directive Response Recorded Date/ Time Advance Directives No February 22, 2015 1:10am Living Will No August 08, 2022 11:03am Power of Plateman No August 08 11:03am Advance Directive Response Recorded Date/ Time Advance Directives No February 22, 2015 1:10am Living Will No September 07, 2022 2: 38pm Power of Plateman No September 07, 2022 2:38pm Advance Directive Response Recorded Date/ Time Advance Directives No February 22, 2015 1:10am Living Will No October 29, 2022 11:16am Power of Plateman No October 29 11:16am Latest Code Status on File Code Status Date Activated Date Inactivated Comments Full Code 10/30/2022 12:16 AM Latest Code Status on File Code Status Date Activated Date Inactivated Comments Full Code 10/30/2022 12:16 AM Date Activated Date Inactivated Comments 10/30/2022 12:16 AM Advance Directive Response Recorded Date/ Time Advance Directives No February 22, 2015 1:10am Advance Directive Response Recorded Date/ Time Living Will No August 18, 2024 12:33pm Do you have a Healthcare Power of Plateman? No August 18, 2024 12:33pm Advance Directives No February 22, 2015 1:10am Advance Directive Response Recorded Date/ Time Do you have a Healthcare Power of Plateman? No October 06, 2024 1:45pm Living Will No August 18, 2024 12:33pm Do you have a Healthcare Power of Plateman? No August 18, 2024 12:33pm Advance Directives No February 22, 2015 1:10am Advance Directive Response Recorded Date/ Time Advance Directives No October 11 8:58am Do you have a Healthcare Power of Plateman? No October 06, 2024 1:45pm Living Will No August 18, 2024 12:33pm Do you have a Healthcare Power of Plateman? No August 18, 2024 12:33pm Instructions Name Dates Details Non-smoker : How to access h ealth information online Indication:Non-smoker Non-smoker : How to access h ealth information online - Detail Indication:Non-smoker Non-smoker : Patient Instruc tions Indication:Non-smoker BMI 23.0-23.9, adult : How t o access health information online Indication:BMI 23.0-23.9, adult BMI 23.0-23.9, adult : How t o access health information online - Detail Indication:BMI 23.0-23.9, adult BMI 23.0-23.9, adult : Patie nt Instructions Indication:BMI 23.0-23.9, adult Sinusitis, bacterial : Patie nt Instructions Indication:Sinusitis, bacterial BMI 21.0-21.9, adult : How t o access health information online Indication:BMI 21.0-21.9, adult BMI 21.0-21.9, adult : How t o access health information online - Detail Indication:BMI 21.0-21.9, adult BMI 21.0-21.9, adult : Patie nt Instructions Indication:BMI 21.0-21.9, adult Mild asthma : How to access health information online Indication:Mild asthma Mild asthma : How to access health information online - Detail Indication:Mild asthma Mild asthma : Patient Instru ctions Indication:Mild asthma Sore throat : How to access health information online Indication:Sore throat Sore throat : How to access health information online - Detail Indication:Sore throat Sore throat : Patient Instru ctions Indication:Sore throat Atypical migraine : How to a ccess health information online Indication:Atypical migraine Atypical migraine : How to a ccess health information online - Detail Indication:Atypical migraine Atypical migraine : Patient Instructions Indication:Atypical migraine Vitamin D deficiency : Patie nt Instructions Indication:Vitamin D deficiency Pleurisy : Patient Instructi ons Indication:Pleurisy Name Dates Details Non-smoker : How to access h ealth information online Indication:Non-smoker Non-smoker : How to access h ealth information online - Detail Indication:Non-smoker Non-smoker : Patient Instruc tions Indication:Non-smoker BMI 23.0-23.9, adult : How t o access health information online Indication:BMI 23.0-23.9, adult BMI 23.0-23.9, adult : How t o access health information online - Detail Indication:BMI 23.0-23.9, adult BMI 23.0-23.9, adult : Patie nt Instructions Indication:BMI 23.0-23.9, adult Sinusitis, bacterial : Patie nt Instructions Indication:Sinusitis, bacterial BMI 21.0-21.9, adult : How t o access health information online Indication:BMI 21.0-21.9, adult BMI 21.0-21.9, adult : How t o access health information online - Detail Indication:BMI 21.0-21.9, adult BMI 21.0-21.9, adult : Patie nt Instructions Indication:BMI 21.0-21.9, adult Mild asthma : How to access health information online Indication:Mild asthma Mild asthma : How to access health information online - Detail Indication:Mild asthma Mild asthma : Patient Instru ctions Indication:Mild asthma Sore throat : How to access health information online Indication:Sore throat Sore throat : How to access health information online - Detail Indication:Sore throat Sore throat : Patient Instru ctions Indication:Sore throat Atypical migraine : How to a ccess health information online Indication:Atypical migraine Atypical migraine : How to a ccess health information online - Detail Indication:Atypical migraine Atypical migraine : Patient Instructions Indication:Atypical migraine Vitamin D deficiency : Patie nt Instructions Indication:Vitamin D deficiency Pleurisy : Patient Instructi ons Indication:Pleurisy Name Dates Details How to access health informa tion online Indication:BMI 22.0-22.9, adult Start:24-Oct-2018 Instruction Type:Patient Education How to access health informa tion online - Detail Indication:BMI 22.0-22.9, adult Start:24-Oct-2018 Instruction Type:Patient Education Patient Instructions Indication:BMI 22.0-22.9, adult Start:24-Oct-2018 Instruction Type:Provider Instructions for Treatment How to access health informa tion online Indication:Non-smoker Start:08-Mar-2018 Instruction Type:Patient Education How to access health informa tion online - Detail Indication:Non-smoker Start:08-Mar-2018 Instruction Type:Patient Education Patient Instructions Indication:Non-smoker Start:08-Mar-2018 Instruction Type:Provider Instructions for Treatment How to access health informa tion online Indication:Non-smoker Start:11-Feb-2018 Instruction Type:Patient Education How to access health informa tion online - Detail Indication:Non-smoker Start:11-Feb-2018 Instruction Type:Patient Education Patient Instructions Indication:Non-smoker Start:11-Feb-2018 Instruction Type:Provider Instructions for Treatment How to access health informa tion online Indication:Non-smoker Start:07-Feb-2018 Instruction Type:Patient Education How to access health informa tion online - Detail Indication:Non-smoker Start:07-Feb-2018 Instruction Type:Patient Education Patient Instructions Indication:Non-smoker Start:07-Feb-2018 Instruction Type:Provider Instructions for Treatment How to access health informa tion online Indication:Non-smoker Start:24-Jan-2018 Instruction Type:Patient Education How to access health informa tion online - Detail Indication:Non-smoker Start:24-Jan-2018 Instruction Type:Patient Education Patient Instructions Indication:Non-smoker Start:24-Jan-2018 Instruction Type:Provider Instructions for Treatment How to access health informa tion online Indication:BMI 23.0-23.9, adult Start:24-Dec-2017 Instruction Type:Patient Education How to access health informa tion online - Detail Indication:BMI 23.0-23.9, adult Start:24-Dec-2017 Instruction Type:Patient Education Patient Instructions Indication:BMI 23.0-23.9, adult Start:24-Dec-2017 Instruction Type:Provider Instructions for Treatment How to access health informa tion online Indication:Non-smoker Start:23-Dec-2017 Instruction Type:Patient Education How to access health informa tion online - Detail Indication:Non-smoker Start:23-Dec-2017 Instruction Type:Patient Education Patient Instructions Indication:Non-smoker Start:23-Dec-2017 Instruction Type:Provider Instructions for Treatment How to access health informa tion online Indication:Non-smoker Start:30-Nov-2017 Instruction Type:Patient Education How to access health informa tion online - Detail Indication:Non-smoker Start:30-Nov-2017 Instruction Type:Patient Education Patient Instructions Indication:Sinusitis, bacterial Start:30-Nov-2017 Instruction Type:Provider Instructions for Treatment How to access health informa tion online Indication:Non-smoker Start:03-Aug-2017 Instruction Type:Patient Education How to access health informa tion online - Detail Indication:Non-smoker Start:03-Aug-2017 Instruction Type:Patient Education Patient Instructions Indication:Non-smoker Start:03-Aug-2017 Instruction Type:Provider Instructions for Treatment How to access health informa tion online Indication:BMI 21.0-21.9, adult Start:31-May-2017 Instruction Type:Patient Education How to access health informa tion online - Detail Indication:BMI 21.0-21.9, adult Start:31-May-2017 Instruction Type:Patient Education Patient Instructions Indication:BMI 21.0-21.9, adult Start:31-May-2017 Instruction Type:Provider Instructions for Treatment How to access health informa tion online Indication:Mild asthma Start:02-Mar-2017 Instruction Type:Patient Education How to access health informa tion online - Detail Indication:Mild asthma Start:02-Mar-2017 Instruction Type:Patient Education Patient Instructions Indication:Mild asthma Start:02-Mar-2017 Instruction Type:Provider Instructions for Treatment How to access health informa tion online Indication:Sore throat Start:10-Feb-2017 Instruction Type:Patient Education How to access health informa tion online - Detail Indication:Sore throat Start:10-Feb-2017 Instruction Type:Patient Education Patient Instructions Indication:Sore throat Start:10-Feb-2017 Instruction Type:Provider Instructions for Treatment How to access health informa tion online Indication:Atypical migraine Start:10-Oct-2015 Instruction Type:Patient Education How to access health informa tion online - Detail Indication:Atypical migraine Start:10-Oct-2015 Instruction Type:Patient Education Patient Instructions Indication:Atypical migraine Start:10-Oct-2015 Instruction Type:Provider Instructions for Treatment How to access health informa tion online Indication:Atypical migraine Start:30-Aug-2015 Instruction Type:Patient Education How to access health informa tion online - Detail Indication:Atypical migraine Start:30-Aug-2015 Instruction Type:Patient Education Patient Instructions Indication:Atypical migraine Start:30-Aug-2015 Instruction Type:Provider Instructions for Treatment Patient Instructions Indication:Vitamin D deficiency Start:09-Aug-2015 Instruction Type:Provider Instructions for Treatment Patient Instructions Indication:Vitamin D deficiency Start:28-Jun-2015 Instruction Type:Provider Instructions for Treatment How to access health informa tion online Indication:Atypical migraine Start:31-May-2015 Instruction Type:Patient Education How to access health informa tion online - Detail Indication:Atypical migraine Start:31-May-2015 Instruction Type:Patient Education Patient Instructions Indication:Atypical migraine Start:31-May-2015 Instruction Type:Provider Instructions for Treatment Patient Instructions Indication:Pleurisy Start:26-Feb-2015 Instruction Type:Provider Instructions for Treatment Name Dates Details How to access health informa tion online Indication:BMI 22.0-22.9, adult Start:24-Oct-2018 Instruction Type:Patient Education How to access health informa tion online - Detail Indication:BMI 22.0-22.9, adult Start:24-Oct-2018 Instruction Type:Patient Education Patient Instructions Indication:BMI 22.0-22.9, adult Start:24-Oct-2018 Instruction Type:Provider Instructions for Treatment How to access health informa tion online Indication:Non-smoker Start:08-Mar-2018 Instruction Type:Patient Education How to access health informa tion online - Detail Indication:Non-smoker Start:08-Mar-2018 Instruction Type:Patient Education Patient Instructions Indication:Non-smoker Start:08-Mar-2018 Instruction Type:Provider Instructions for Treatment How to access health informa tion online Indication:Non-smoker Start:11-Feb-2018 Instruction Type:Patient Education How to access health informa tion online - Detail Indication:Non-smoker Start:11-Feb-2018 Instruction Type:Patient Education Patient Instructions Indication:Non-smoker Start:11-Feb-2018 Instruction Type:Provider Instructions for Treatment How to access health informa tion online Indication:Non-smoker Start:07-Feb-2018 Instruction Type:Patient Education How to access health informa tion online - Detail Indication:Non-smoker Start:07-Feb-2018 Instruction Type:Patient Education Patient Instructions Indication:Non-smoker Start:07-Feb-2018 Instruction Type:Provider Instructions for Treatment How to access health informa tion online Indication:Non-smoker Start:24-Jan-2018 Instruction Type:Patient Education How to access health informa tion online - Detail Indication:Non-smoker Start:24-Jan-2018 Instruction Type:Patient Education Patient Instructions Indication:Non-smoker Start:24-Jan-2018 Instruction Type:Provider Instructions for Treatment How to access health informa tion online Indication:BMI 23.0-23.9, adult Start:24-Dec-2017 Instruction Type:Patient Education How to access health informa tion online - Detail Indication:BMI 23.0-23.9, adult Start:24-Dec-2017 Instruction Type:Patient Education Patient Instructions Indication:BMI 23.0-23.9, adult Start:24-Dec-2017 Instruction Type:Provider Instructions for Treatment How to access health informa tion online Indication:Non-smoker Start:23-Dec-2017 Instruction Type:Patient Education How to access health informa tion online - Detail Indication:Non-smoker Start:23-Dec-2017 Instruction Type:Patient Education Patient Instructions Indication:Non-smoker Start:23-Dec-2017 Instruction Type:Provider Instructions for Treatment How to access health informa tion online Indication:Non-smoker Start:30-Nov-2017 Instruction Type:Patient Education How to access health informa tion online - Detail Indication:Non-smoker Start:30-Nov-2017 Instruction Type:Patient Education Patient Instructions Indication:Sinusitis, bacterial Start:30-Nov-2017 Instruction Type:Provider Instructions for Treatment How to access health informa tion online Indication:Non-smoker Start:03-Aug-2017 Instruction Type:Patient Education How to access health informa tion online - Detail Indication:Non-smoker Start:03-Aug-2017 Instruction Type:Patient Education Patient Instructions Indication:Non-smoker Start:03-Aug-2017 Instruction Type:Provider Instructions for Treatment How to access health informa tion online Indication:BMI 21.0-21.9, adult Start:31-May-2017 Instruction Type:Patient Education How to access health informa tion online - Detail Indication:BMI 21.0-21.9, adult Start:31-May-2017 Instruction Type:Patient Education Patient Instructions Indication:BMI 21.0-21.9, adult Start:31-May-2017 Instruction Type:Provider Instructions for Treatment How to access health informa tion online Indication:Mild asthma Start:02-Mar-2017 Instruction Type:Patient Education How to access health informa tion online - Detail Indication:Mild asthma Start:02-Mar-2017 Instruction Type:Patient Education Patient Instructions Indication:Mild asthma Start:02-Mar-2017 Instruction Type:Provider Instructions for Treatment How to access health informa tion online Indication:Sore throat Start:10-Feb-2017 Instruction Type:Patient Education How to access health informa tion online - Detail Indication:Sore throat Start:10-Feb-2017 Instruction Type:Patient Education Patient Instructions Indication:Sore throat Start:10-Feb-2017 Instruction Type:Provider Instructions for Treatment How to access health informa tion online Indication:Atypical migraine Start:10-Oct-2015 Instruction Type:Patient Education How to access health informa tion online - Detail Indication:Atypical migraine Start:10-Oct-2015 Instruction Type:Patient Education Patient Instructions Indication:Atypical migraine Start:10-Oct-2015 Instruction Type:Provider Instructions for Treatment How to access health informa tion online Indication:Atypical migraine Start:30-Aug-2015 Instruction Type:Patient Education How to access health informa tion online - Detail Indication:Atypical migraine Start:30-Aug-2015 Instruction Type:Patient Education Patient Instructions Indication:Atypical migraine Start:30-Aug-2015 Instruction Type:Provider Instructions for Treatment Patient Instructions Indication:Vitamin D deficiency Start:09-Aug-2015 Instruction Type:Provider Instructions for Treatment Patient Instructions Indication:Vitamin D deficiency Start:28-Jun-2015 Instruction Type:Provider Instructions for Treatment How to access health informa tion online Indication:Atypical migraine Start:31-May-2015 Instruction Type:Patient Education How to access health informa tion online - Detail Indication:Atypical migraine Start:31-May-2015 Instruction Type:Patient Education Patient Instructions Indication:Atypical migraine Start:31-May-2015 Instruction Type:Provider Instructions for Treatment Patient Instructions Indication:Pleurisy Start:26-Feb-2015 Instruction Type:Provider Instructions for Treatment Name Dates Details How to access health informa tion online Indication:BMI 22.0-22.9, adult Start:24-Oct-2018 Instruction Type:Patient Education How to access health informa tion online - Detail Indication:BMI 22.0-22.9, adult Start:24-Oct-2018 Instruction Type:Patient Education Patient Instructions Indication:BMI 22.0-22.9, adult Start:24-Oct-2018 Instruction Type:Provider Instructions for Treatment How to access health informa tion online Indication:Non-smoker Start:08-Mar-2018 Instruction Type:Patient Education How to access health informa tion online - Detail Indication:Non-smoker Start:08-Mar-2018 Instruction Type:Patient Education Patient Instructions Indication:Non-smoker Start:08-Mar-2018 Instruction Type:Provider Instructions for Treatment How to access health informa tion online Indication:Non-smoker Start:11-Feb-2018 Instruction Type:Patient Education How to access health informa tion online - Detail Indication:Non-smoker Start:11-Feb-2018 Instruction Type:Patient Education Patient Instructions Indication:Non-smoker Start:11-Feb-2018 Instruction Type:Provider Instructions for Treatment How to access health informa tion online Indication:Non-smoker Start:07-Feb-2018 Instruction Type:Patient Education How to access health informa tion online - Detail Indication:Non-smoker Start:07-Feb-2018 Instruction Type:Patient Education Patient Instructions Indication:Non-smoker Start:07-Feb-2018 Instruction Type:Provider Instructions for Treatment How to access health informa tion online Indication:Non-smoker Start:24-Jan-2018 Instruction Type:Patient Education How to access health informa tion online - Detail Indication:Non-smoker Start:24-Jan-2018 Instruction Type:Patient Education Patient Instructions Indication:Non-smoker Start:24-Jan-2018 Instruction Type:Provider Instructions for Treatment How to access health informa tion online Indication:BMI 23.0-23.9, adult Start:24-Dec-2017 Instruction Type:Patient Education How to access health informa tion online - Detail Indication:BMI 23.0-23.9, adult Start:24-Dec-2017 Instruction Type:Patient Education Patient Instructions Indication:BMI 23.0-23.9, adult Start:24-Dec-2017 Instruction Type:Provider Instructions for Treatment How to access health informa tion online Indication:Non-smoker Start:23-Dec-2017 Instruction Type:Patient Education How to access health informa tion online - Detail Indication:Non-smoker Start:23-Dec-2017 Instruction Type:Patient Education Patient Instructions Indication:Non-smoker Start:23-Dec-2017 Instruction Type:Provider Instructions for Treatment How to access health informa tion online Indication:Non-smoker Start:30-Nov-2017 Instruction Type:Patient Education How to access health informa tion online - Detail Indication:Non-smoker Start:30-Nov-2017 Instruction Type:Patient Education Patient Instructions Indication:Sinusitis, bacterial Start:30-Nov-2017 Instruction Type:Provider Instructions for Treatment How to access health informa tion online Indication:Non-smoker Start:03-Aug-2017 Instruction Type:Patient Education How to access health informa tion online - Detail Indication:Non-smoker Start:03-Aug-2017 Instruction Type:Patient Education Patient Instructions Indication:Non-smoker Start:03-Aug-2017 Instruction Type:Provider Instructions for Treatment How to access health informa tion online Indication:BMI 21.0-21.9, adult Start:31-May-2017 Instruction Type:Patient Education How to access health informa tion online - Detail Indication:BMI 21.0-21.9, adult Start:31-May-2017 Instruction Type:Patient Education Patient Instructions Indication:BMI 21.0-21.9, adult Start:31-May-2017 Instruction Type:Provider Instructions for Treatment How to access health informa tion online Indication:Mild asthma Start:02-Mar-2017 Instruction Type:Patient Education How to access health informa tion online - Detail Indication:Mild asthma Start:02-Mar-2017 Instruction Type:Patient Education Patient Instructions Indication:Mild asthma Start:02-Mar-2017 Instruction Type:Provider Instructions for Treatment How to access health informa tion online Indication:Sore throat Start:10-Feb-2017 Instruction Type:Patient Education How to access health informa tion online - Detail Indication:Sore throat Start:10-Feb-2017 Instruction Type:Patient Education Patient Instructions Indication:Sore throat Start:10-Feb-2017 Instruction Type:Provider Instructions for Treatment How to access health informa tion online Indication:Atypical migraine Start:10-Oct-2015 Instruction Type:Patient Education How to access health informa tion online - Detail Indication:Atypical migraine Start:10-Oct-2015 Instruction Type:Patient Education Patient Instructions Indication:Atypical migraine Start:10-Oct-2015 Instruction Type:Provider Instructions for Treatment How to access health informa tion online Indication:Atypical migraine Start:30-Aug-2015 Instruction Type:Patient Education How to access health informa tion online - Detail Indication:Atypical migraine Start:30-Aug-2015 Instruction Type:Patient Education Patient Instructions Indication:Atypical migraine Start:30-Aug-2015 Instruction Type:Provider Instructions for Treatment Patient Instructions Indication:Vitamin D deficiency Start:09-Aug-2015 Instruction Type:Provider Instructions for Treatment Patient Instructions Indication:Vitamin D deficiency Start:28-Jun-2015 Instruction Type:Provider Instructions for Treatment How to access health informa tion online Indication:Atypical migraine Start:31-May-2015 Instruction Type:Patient Education How to access health informa tion online - Detail Indication:Atypical migraine Start:31-May-2015 Instruction Type:Patient Education Patient Instructions Indication:Atypical migraine Start:31-May-2015 Instruction Type:Provider Instructions for Treatment Patient Instructions Indication:Pleurisy Start:26-Feb-2015 Instruction Type:Provider Instructions for Treatment Name Dates Details How to access health informa tion online Indication:BMI 22.0-22.9, adult Start:24-Oct-2018 Instruction Type:Patient Education How to access health informa tion online - Detail Indication:BMI 22.0-22.9, adult Start:24-Oct-2018 Instruction Type:Patient Education Patient Instructions Indication:BMI 22.0-22.9, adult Start:24-Oct-2018 Instruction Type:Provider Instructions for Treatment How to access health informa tion online Indication:Non-smoker Start:08-Mar-2018 Instruction Type:Patient Education How to access health informa tion online - Detail Indication:Non-smoker Start:08-Mar-2018 Instruction Type:Patient Education Patient Instructions Indication:Non-smoker Start:08-Mar-2018 Instruction Type:Provider Instructions for Treatment How to access health informa tion online Indication:Non-smoker Start:11-Feb-2018 Instruction Type:Patient Education How to access health informa tion online - Detail Indication:Non-smoker Start:11-Feb-2018 Instruction Type:Patient Education Patient Instructions Indication:Non-smoker Start:11-Feb-2018 Instruction Type:Provider Instructions for Treatment How to access health informa tion online Indication:Non-smoker Start:07-Feb-2018 Instruction Type:Patient Education How to access health informa tion online - Detail Indication:Non-smoker Start:07-Feb-2018 Instruction Type:Patient Education Patient Instructions Indication:Non-smoker Start:07-Feb-2018 Instruction Type:Provider Instructions for Treatment How to access health informa tion online Indication:Non-smoker Start:24-Jan-2018 Instruction Type:Patient Education How to access health informa tion online - Detail Indication:Non-smoker Start:24-Jan-2018 Instruction Type:Patient Education Patient Instructions Indication:Non-smoker Start:24-Jan-2018 Instruction Type:Provider Instructions for Treatment How to access health informa tion online Indication:BMI 23.0-23.9, adult Start:24-Dec-2017 Instruction Type:Patient Education How to access health informa tion online - Detail Indication:BMI 23.0-23.9, adult Start:24-Dec-2017 Instruction Type:Patient Education Patient Instructions Indication:BMI 23.0-23.9, adult Start:24-Dec-2017 Instruction Type:Provider Instructions for Treatment How to access health informa tion online Indication:Non-smoker Start:23-Dec-2017 Instruction Type:Patient Education How to access health informa tion online - Detail Indication:Non-smoker Start:23-Dec-2017 Instruction Type:Patient Education Patient Instructions Indication:Non-smoker Start:23-Dec-2017 Instruction Type:Provider Instructions for Treatment How to access health informa tion online Indication:Non-smoker Start:30-Nov-2017 Instruction Type:Patient Education How to access health informa tion online - Detail Indication:Non-smoker Start:30-Nov-2017 Instruction Type:Patient Education Patient Instructions Indication:Sinusitis, bacterial Start:30-Nov-2017 Instruction Type:Provider Instructions for Treatment How to access health informa tion online Indication:Non-smoker Start:03-Aug-2017 Instruction Type:Patient Education How to access health informa tion online - Detail Indication:Non-smoker Start:03-Aug-2017 Instruction Type:Patient Education Patient Instructions Indication:Non-smoker Start:03-Aug-2017 Instruction Type:Provider Instructions for Treatment How to access health informa tion online Indication:BMI 21.0-21.9, adult Start:31-May-2017 Instruction Type:Patient Education How to access health informa tion online - Detail Indication:BMI 21.0-21.9, adult Start:31-May-2017 Instruction Type:Patient Education Patient Instructions Indication:BMI 21.0-21.9, adult Start:31-May-2017 Instruction Type:Provider Instructions for Treatment How to access health informa tion online Indication:Mild asthma Start:02-Mar-2017 Instruction Type:Patient Education How to access health informa tion online - Detail Indication:Mild asthma Start:02-Mar-2017 Instruction Type:Patient Education Patient Instructions Indication:Mild asthma Start:02-Mar-2017 Instruction Type:Provider Instructions for Treatment How to access health informa tion online Indication:Sore throat Start:10-Feb-2017 Instruction Type:Patient Education How to access health informa tion online - Detail Indication:Sore throat Start:10-Feb-2017 Instruction Type:Patient Education Patient Instructions Indication:Sore throat Start:10-Feb-2017 Instruction Type:Provider Instructions for Treatment How to access health informa tion online Indication:Atypical migraine Start:10-Oct-2015 Instruction Type:Patient Education How to access health informa tion online - Detail Indication:Atypical migraine Start:10-Oct-2015 Instruction Type:Patient Education Patient Instructions Indication:Atypical migraine Start:10-Oct-2015 Instruction Type:Provider Instructions for Treatment How to access health informa tion online Indication:Atypical migraine Start:30-Aug-2015 Instruction Type:Patient Education How to access health informa tion online - Detail Indication:Atypical migraine Start:30-Aug-2015 Instruction Type:Patient Education Patient Instructions Indication:Atypical migraine Start:30-Aug-2015 Instruction Type:Provider Instructions for Treatment Patient Instructions Indication:Vitamin D deficiency Start:09-Aug-2015 Instruction Type:Provider Instructions for Treatment Patient Instructions Indication:Vitamin D deficiency Start:28-Jun-2015 Instruction Type:Provider Instructions for Treatment How to access health informa tion online Indication:Atypical migraine Start:31-May-2015 Instruction Type:Patient Education How to access health informa tion online - Detail Indication:Atypical migraine Start:31-May-2015 Instruction Type:Patient Education Patient Instructions Indication:Atypical migraine Start:31-May-2015 Instruction Type:Provider Instructions for Treatment Patient Instructions Indication:Pleurisy Start:26-Feb-2015 Instruction Type:Provider Instructions for Treatment Name Dates Details How to access health informa tion online Indication:BMI 22.0-22.9, adult Start:24-Oct-2018 Instruction Type:Patient Education How to access health informa tion online - Detail Indication:BMI 22.0-22.9, adult Start:24-Oct-2018 Instruction Type:Patient Education Patient Instructions Indication:BMI 22.0-22.9, adult Start:24-Oct-2018 Instruction Type:Provider Instructions for Treatment How to access health informa tion online Indication:Non-smoker Start:08-Mar-2018 Instruction Type:Patient Education How to access health informa tion online - Detail Indication:Non-smoker Start:08-Mar-2018 Instruction Type:Patient Education Patient Instructions Indication:Non-smoker Start:08-Mar-2018 Instruction Type:Provider Instructions for Treatment How to access health informa tion online Indication:Non-smoker Start:11-Feb-2018 Instruction Type:Patient Education How to access health informa tion online - Detail Indication:Non-smoker Start:11-Feb-2018 Instruction Type:Patient Education Patient Instructions Indication:Non-smoker Start:11-Feb-2018 Instruction Type:Provider Instructions for Treatment How to access health informa tion online Indication:Non-smoker Start:07-Feb-2018 Instruction Type:Patient Education How to access health informa tion online - Detail Indication:Non-smoker Start:07-Feb-2018 Instruction Type:Patient Education Patient Instructions Indication:Non-smoker Start:07-Feb-2018 Instruction Type:Provider Instructions for Treatment How to access health informa tion online Indication:Non-smoker Start:24-Jan-2018 Instruction Type:Patient Education How to access health informa tion online - Detail Indication:Non-smoker Start:24-Jan-2018 Instruction Type:Patient Education Patient Instructions Indication:Non-smoker Start:24-Jan-2018 Instruction Type:Provider Instructions for Treatment How to access health informa tion online Indication:BMI 23.0-23.9, adult Start:24-Dec-2017 Instruction Type:Patient Education How to access health informa tion online - Detail Indication:BMI 23.0-23.9, adult Start:24-Dec-2017 Instruction Type:Patient Education Patient Instructions Indication:BMI 23.0-23.9, adult Start:24-Dec-2017 Instruction Type:Provider Instructions for Treatment How to access health informa tion online Indication:Non-smoker Start:23-Dec-2017 Instruction Type:Patient Education How to access health informa tion online - Detail Indication:Non-smoker Start:23-Dec-2017 Instruction Type:Patient Education Patient Instructions Indication:Non-smoker Start:23-Dec-2017 Instruction Type:Provider Instructions for Treatment How to access health informa tion online Indication:Non-smoker Start:30-Nov-2017 Instruction Type:Patient Education How to access health informa tion online - Detail Indication:Non-smoker Start:30-Nov-2017 Instruction Type:Patient Education Patient Instructions Indication:Sinusitis, bacterial Start:30-Nov-2017 Instruction Type:Provider Instructions for Treatment How to access health informa tion online Indication:Non-smoker Start:03-Aug-2017 Instruction Type:Patient Education How to access health informa tion online - Detail Indication:Non-smoker Start:03-Aug-2017 Instruction Type:Patient Education Patient Instructions Indication:Non-smoker Start:03-Aug-2017 Instruction Type:Provider Instructions for Treatment How to access health informa tion online Indication:BMI 21.0-21.9, adult Start:31-May-2017 Instruction Type:Patient Education How to access health informa tion online - Detail Indication:BMI 21.0-21.9, adult Start:31-May-2017 Instruction Type:Patient Education Patient Instructions Indication:BMI 21.0-21.9, adult Start:31-May-2017 Instruction Type:Provider Instructions for Treatment How to access health informa tion online Indication:Mild asthma Start:02-Mar-2017 Instruction Type:Patient Education How to access health informa tion online - Detail Indication:Mild asthma Start:02-Mar-2017 Instruction Type:Patient Education Patient Instructions Indication:Mild asthma Start:02-Mar-2017 Instruction Type:Provider Instructions for Treatment How to access health informa tion online Indication:Sore throat Start:10-Feb-2017 Instruction Type:Patient Education How to access health informa tion online - Detail Indication:Sore throat Start:10-Feb-2017 Instruction Type:Patient Education Patient Instructions Indication:Sore throat Start:10-Feb-2017 Instruction Type:Provider Instructions for Treatment How to access health informa tion online Indication:Atypical migraine Start:10-Oct-2015 Instruction Type:Patient Education How to access health informa tion online - Detail Indication:Atypical migraine Start:10-Oct-2015 Instruction Type:Patient Education Patient Instructions Indication:Atypical migraine Start:10-Oct-2015 Instruction Type:Provider Instructions for Treatment How to access health informa tion online Indication:Atypical migraine Start:30-Aug-2015 Instruction Type:Patient Education How to access health informa tion online - Detail Indication:Atypical migraine Start:30-Aug-2015 Instruction Type:Patient Education Patient Instructions Indication:Atypical migraine Start:30-Aug-2015 Instruction Type:Provider Instructions for Treatment Patient Instructions Indication:Vitamin D deficiency Start:09-Aug-2015 Instruction Type:Provider Instructions for Treatment Patient Instructions Indication:Vitamin D deficiency Start:28-Jun-2015 Instruction Type:Provider Instructions for Treatment How to access health informa tion online Indication:Atypical migraine Start:31-May-2015 Instruction Type:Patient Education How to access health informa tion online - Detail Indication:Atypical migraine Start:31-May-2015 Instruction Type:Patient Education Patient Instructions Indication:Atypical migraine Start:31-May-2015 Instruction Type:Provider Instructions for Treatment Patient Instructions Indication:Pleurisy Start:26-Feb-2015 Instruction Type:Provider Instructions for Treatment Name Dates Details How to access health informa tion online Indication:Insect bite Start:06-Dec-2018 Instruction Type:Patient Education How to access health informa tion online - Detail Indication:Insect bite Start:06-Dec-2018 Instruction Type:Patient Education Patient Instructions Indication:Insect bite Start:06-Dec-2018 Instruction Type:Provider Instructions for Treatment How to access health informa tion online Indication:BMI 22.0-22.9, adult Start:24-Oct-2018 Instruction Type:Patient Education How to access health informa tion online - Detail Indication:BMI 22.0-22.9, adult Start:24-Oct-2018 Instruction Type:Patient Education Patient Instructions Indication:BMI 22.0-22.9, adult Start:24-Oct-2018 Instruction Type:Provider Instructions for Treatment How to access health informa tion online Indication:Non-smoker Start:08-Mar-2018 Instruction Type:Patient Education How to access health informa tion online - Detail Indication:Non-smoker Start:08-Mar-2018 Instruction Type:Patient Education Patient Instructions Indication:Non-smoker Start:08-Mar-2018 Instruction Type:Provider Instructions for Treatment How to access health informa tion online Indication:Non-smoker Start:11-Feb-2018 Instruction Type:Patient Education How to access health informa tion online - Detail Indication:Non-smoker Start:11-Feb-2018 Instruction Type:Patient Education Patient Instructions Indication:Non-smoker Start:11-Feb-2018 Instruction Type:Provider Instructions for Treatment How to access health informa tion online Indication:Non-smoker Start:07-Feb-2018 Instruction Type:Patient Education How to access health informa tion online - Detail Indication:Non-smoker Start:07-Feb-2018 Instruction Type:Patient Education Patient Instructions Indication:Non-smoker Start:07-Feb-2018 Instruction Type:Provider Instructions for Treatment How to access health informa tion online Indication:Non-smoker Start:24-Jan-2018 Instruction Type:Patient Education How to access health informa tion online - Detail Indication:Non-smoker Start:24-Jan-2018 Instruction Type:Patient Education Patient Instructions Indication:Non-smoker Start:24-Jan-2018 Instruction Type:Provider Instructions for Treatment How to access health informa tion online Indication:BMI 23.0-23.9, adult Start:24-Dec-2017 Instruction Type:Patient Education How to access health informa tion online - Detail Indication:BMI 23.0-23.9, adult Start:24-Dec-2017 Instruction Type:Patient Education Patient Instructions Indication:BMI 23.0-23.9, adult Start:24-Dec-2017 Instruction Type:Provider Instructions for Treatment How to access health informa tion online Indication:Non-smoker Start:23-Dec-2017 Instruction Type:Patient Education How to access health informa tion online - Detail Indication:Non-smoker Start:23-Dec-2017 Instruction Type:Patient Education Patient Instructions Indication:Non-smoker Start:23-Dec-2017 Instruction Type:Provider Instructions for Treatment How to access health informa tion online Indication:Non-smoker Start:30-Nov-2017 Instruction Type:Patient Education How to access health informa tion online - Detail Indication:Non-smoker Start:30-Nov-2017 Instruction Type:Patient Education Patient Instructions Indication:Sinusitis, bacterial Start:30-Nov-2017 Instruction Type:Provider Instructions for Treatment How to access health informa tion online Indication:Non-smoker Start:03-Aug-2017 Instruction Type:Patient Education How to access health informa tion online - Detail Indication:Non-smoker Start:03-Aug-2017 Instruction Type:Patient Education Patient Instructions Indication:Non-smoker Start:03-Aug-2017 Instruction Type:Provider Instructions for Treatment How to access health informa tion online Indication:BMI 21.0-21.9, adult Start:31-May-2017 Instruction Type:Patient Education How to access health informa tion online - Detail Indication:BMI 21.0-21.9, adult Start:31-May-2017 Instruction Type:Patient Education Patient Instructions Indication:BMI 21.0-21.9, adult Start:31-May-2017 Instruction Type:Provider Instructions for Treatment How to access health informa tion online Indication:Mild asthma Start:02-Mar-2017 Instruction Type:Patient Education How to access health informa tion online - Detail Indication:Mild asthma Start:02-Mar-2017 Instruction Type:Patient Education Patient Instructions Indication:Mild asthma Start:02-Mar-2017 Instruction Type:Provider Instructions for Treatment How to access health informa tion online Indication:Sore throat Start:10-Feb-2017 Instruction Type:Patient Education How to access health informa tion online - Detail Indication:Sore throat Start:10-Feb-2017 Instruction Type:Patient Education Patient Instructions Indication:Sore throat Start:10-Feb-2017 Instruction Type:Provider Instructions for Treatment How to access health informa tion online Indication:Atypical migraine Start:10-Oct-2015 Instruction Type:Patient Education How to access health informa tion online - Detail Indication:Atypical migraine Start:10-Oct-2015 Instruction Type:Patient Education Patient Instructions Indication:Atypical migraine Start:10-Oct-2015 Instruction Type:Provider Instructions for Treatment How to access health informa tion online Indication:Atypical migraine Start:30-Aug-2015 Instruction Type:Patient Education How to access health informa tion online - Detail Indication:Atypical migraine Start:30-Aug-2015 Instruction Type:Patient Education Patient Instructions Indication:Atypical migraine Start:30-Aug-2015 Instruction Type:Provider Instructions for Treatment Patient Instructions Indication:Vitamin D deficiency Start:09-Aug-2015 Instruction Type:Provider Instructions for Treatment Patient Instructions Indication:Vitamin D deficiency Start:28-Jun-2015 Instruction Type:Provider Instructions for Treatment How to access health informa tion online Indication:Atypical migraine Start:31-May-2015 Instruction Type:Patient Education How to access health informa tion online - Detail Indication:Atypical migraine Start:31-May-2015 Instruction Type:Patient Education Patient Instructions Indication:Atypical migraine Start:31-May-2015 Instruction Type:Provider Instructions for Treatment Patient Instructions Indication:Pleurisy Start:26-Feb-2015 Instruction Type:Provider Instructions for Treatment Name Dates Details How to access health informa tion online Indication:Insect bite Start:06-Dec-2018 Instruction Type:Patient Education How to access health informa tion online - Detail Indication:Insect bite Start:06-Dec-2018 Instruction Type:Patient Education Patient Instructions Indication:Insect bite Start:06-Dec-2018 Instruction Type:Provider Instructions for Treatment How to access health informa tion online Indication:BMI 22.0-22.9, adult Start:24-Oct-2018 Instruction Type:Patient Education How to access health informa tion online - Detail Indication:BMI 22.0-22.9, adult Start:24-Oct-2018 Instruction Type:Patient Education Patient Instructions Indication:BMI 22.0-22.9, adult Start:24-Oct-2018 Instruction Type:Provider Instructions for Treatment How to access health informa tion online Indication:Non-smoker Start:08-Mar-2018 Instruction Type:Patient Education How to access health informa tion online - Detail Indication:Non-smoker Start:08-Mar-2018 Instruction Type:Patient Education Patient Instructions Indication:Non-smoker Start:08-Mar-2018 Instruction Type:Provider Instructions for Treatment How to access health informa tion online Indication:Non-smoker Start:11-Feb-2018 Instruction Type:Patient Education How to access health informa tion online - Detail Indication:Non-smoker Start:11-Feb-2018 Instruction Type:Patient Education Patient Instructions Indication:Non-smoker Start:11-Feb-2018 Instruction Type:Provider Instructions for Treatment How to access health informa tion online Indication:Non-smoker Start:07-Feb-2018 Instruction Type:Patient Education How to access health informa tion online - Detail Indication:Non-smoker Start:07-Feb-2018 Instruction Type:Patient Education Patient Instructions Indication:Non-smoker Start:07-Feb-2018 Instruction Type:Provider Instructions for Treatment How to access health informa tion online Indication:Non-smoker Start:24-Jan-2018 Instruction Type:Patient Education How to access health informa tion online - Detail Indication:Non-smoker Start:24-Jan-2018 Instruction Type:Patient Education Patient Instructions Indication:Non-smoker Start:24-Jan-2018 Instruction Type:Provider Instructions for Treatment How to access health informa tion online Indication:BMI 23.0-23.9, adult Start:24-Dec-2017 Instruction Type:Patient Education How to access health informa tion online - Detail Indication:BMI 23.0-23.9, adult Start:24-Dec-2017 Instruction Type:Patient Education Patient Instructions Indication:BMI 23.0-23.9, adult Start:24-Dec-2017 Instruction Type:Provider Instructions for Treatment How to access health informa tion online Indication:Non-smoker Start:23-Dec-2017 Instruction Type:Patient Education How to access health informa tion online - Detail Indication:Non-smoker Start:23-Dec-2017 Instruction Type:Patient Education Patient Instructions Indication:Non-smoker Start:23-Dec-2017 Instruction Type:Provider Instructions for Treatment How to access health informa tion online Indication:Non-smoker Start:30-Nov-2017 Instruction Type:Patient Education How to access health informa tion online - Detail Indication:Non-smoker Start:30-Nov-2017 Instruction Type:Patient Education Patient Instructions Indication:Sinusitis, bacterial Start:30-Nov-2017 Instruction Type:Provider Instructions for Treatment How to access health informa tion online Indication:Non-smoker Start:03-Aug-2017 Instruction Type:Patient Education How to access health informa tion online - Detail Indication:Non-smoker Start:03-Aug-2017 Instruction Type:Patient Education Patient Instructions Indication:Non-smoker Start:03-Aug-2017 Instruction Type:Provider Instructions for Treatment How to access health informa tion online Indication:BMI 21.0-21.9, adult Start:31-May-2017 Instruction Type:Patient Education How to access health informa tion online - Detail Indication:BMI 21.0-21.9, adult Start:31-May-2017 Instruction Type:Patient Education Patient Instructions Indication:BMI 21.0-21.9, adult Start:31-May-2017 Instruction Type:Provider Instructions for Treatment How to access health informa tion online Indication:Mild asthma Start:02-Mar-2017 Instruction Type:Patient Education How to access health informa tion online - Detail Indication:Mild asthma Start:02-Mar-2017 Instruction Type:Patient Education Patient Instructions Indication:Mild asthma Start:02-Mar-2017 Instruction Type:Provider Instructions for Treatment How to access health informa tion online Indication:Sore throat Start:10-Feb-2017 Instruction Type:Patient Education How to access health informa tion online - Detail Indication:Sore throat Start:10-Feb-2017 Instruction Type:Patient Education Patient Instructions Indication:Sore throat Start:10-Feb-2017 Instruction Type:Provider Instructions for Treatment How to access health informa tion online Indication:Atypical migraine Start:10-Oct-2015 Instruction Type:Patient Education How to access health informa tion online - Detail Indication:Atypical migraine Start:10-Oct-2015 Instruction Type:Patient Education Patient Instructions Indication:Atypical migraine Start:10-Oct-2015 Instruction Type:Provider Instructions for Treatment How to access health informa tion online Indication:Atypical migraine Start:30-Aug-2015 Instruction Type:Patient Education How to access health informa tion online - Detail Indication:Atypical migraine Start:30-Aug-2015 Instruction Type:Patient Education Patient Instructions Indication:Atypical migraine Start:30-Aug-2015 Instruction Type:Provider Instructions for Treatment Patient Instructions Indication:Vitamin D deficiency Start:09-Aug-2015 Instruction Type:Provider Instructions for Treatment Patient Instructions Indication:Vitamin D deficiency Start:28-Jun-2015 Instruction Type:Provider Instructions for Treatment How to access health informa tion online Indication:Atypical migraine Start:31-May-2015 Instruction Type:Patient Education How to access health informa tion online - Detail Indication:Atypical migraine Start:31-May-2015 Instruction Type:Patient Education Patient Instructions Indication:Atypical migraine Start:31-May-2015 Instruction Type:Provider Instructions for Treatment Patient Instructions Indication:Pleurisy Start:26-Feb-2015 Instruction Type:Provider Instructions for Treatment Name Dates Details How to access health informa tion online Indication:BMI 22.0-22.9, adult Start:19-Jul-2019 Instruction Type:Patient Education How to access health informa tion online - Detail Indication:BMI 22.0-22.9, adult Start:19-Jul-2019 Instruction Type:Patient Education Patient Instructions Indication:BMI 22.0-22.9, adult Start:19-Jul-2019 Instruction Type:Provider Instructions for Treatment How to access health informa tion online Indication:BMI 22.0-22.9, adult Start:17-May-2019 Instruction Type:Patient Education How to access health informa tion online - Detail Indication:BMI 22.0-22.9, adult Start:17-May-2019 Instruction Type:Patient Education Patient Instructions Indication:BMI 22.0-22.9, adult Start:17-May-2019 Instruction Type:Provider Instructions for Treatment How to access health informa tion online Indication:Non-smoker Start:29-Mar-2019 Instruction Type:Patient Education How to access health informa tion online - Detail Indication:Non-smoker Start:29-Mar-2019 Instruction Type:Patient Education Patient Instructions Indication:Non-smoker Start:29-Mar-2019 Instruction Type:Provider Instructions for Treatment How to access health informa tion online Indication:Non-smoker Start:08-Mar-2019 Instruction Type:Patient Education How to access health informa tion online - Detail Indication:Non-smoker Start:08-Mar-2019 Instruction Type:Patient Education Patient Instructions Indication:Non-smoker Start:08-Mar-2019 Instruction Type:Provider Instructions for Treatment How to access health informa tion online Indication:Insect bite Start:06-Dec-2018 Instruction Type:Patient Education How to access health informa tion online - Detail Indication:Insect bite Start:06-Dec-2018 Instruction Type:Patient Education Patient Instructions Indication:Insect bite Start:06-Dec-2018 Instruction Type:Provider Instructions for Treatment How to access health informa tion online Indication:BMI 22.0-22.9, adult Start:24-Oct-2018 Instruction Type:Patient Education How to access health informa tion online - Detail Indication:BMI 22.0-22.9, adult Start:24-Oct-2018 Instruction Type:Patient Education Patient Instructions Indication:BMI 22.0-22.9, adult Start:24-Oct-2018 Instruction Type:Provider Instructions for Treatment How to access health informa tion online Indication:Non-smoker Start:08-Mar-2018 Instruction Type:Patient Education How to access health informa tion online - Detail Indication:Non-smoker Start:08-Mar-2018 Instruction Type:Patient Education Patient Instructions Indication:Non-smoker Start:08-Mar-2018 Instruction Type:Provider Instructions for Treatment How to access health informa tion online Indication:Non-smoker Start:11-Feb-2018 Instruction Type:Patient Education How to access health informa tion online - Detail Indication:Non-smoker Start:11-Feb-2018 Instruction Type:Patient Education Patient Instructions Indication:Non-smoker Start:11-Feb-2018 Instruction Type:Provider Instructions for Treatment How to access health informa tion online Indication:Non-smoker Start:07-Feb-2018 Instruction Type:Patient Education How to access health informa tion online - Detail Indication:Non-smoker Start:07-Feb-2018 Instruction Type:Patient Education Patient Instructions Indication:Non-smoker Start:07-Feb-2018 Instruction Type:Provider Instructions for Treatment How to access health informa tion online Indication:Non-smoker Start:24-Jan-2018 Instruction Type:Patient Education How to access health informa tion online - Detail Indication:Non-smoker Start:24-Jan-2018 Instruction Type:Patient Education Patient Instructions Indication:Non-smoker Start:24-Jan-2018 Instruction Type:Provider Instructions for Treatment How to access health informa tion online Indication:BMI 23.0-23.9, adult Start:24-Dec-2017 Instruction Type:Patient Education How to access health informa tion online - Detail Indication:BMI 23.0-23.9, adult Start:24-Dec-2017 Instruction Type:Patient Education Patient Instructions Indication:BMI 23.0-23.9, adult Start:24-Dec-2017 Instruction Type:Provider Instructions for Treatment How to access health informa tion online Indication:Non-smoker Start:23-Dec-2017 Instruction Type:Patient Education How to access health informa tion online - Detail Indication:Non-smoker Start:23-Dec-2017 Instruction Type:Patient Education Patient Instructions Indication:Non-smoker Start:23-Dec-2017 Instruction Type:Provider Instructions for Treatment How to access health informa tion online Indication:Non-smoker Start:30-Nov-2017 Instruction Type:Patient Education How to access health informa tion online - Detail Indication:Non-smoker Start:30-Nov-2017 Instruction Type:Patient Education Patient Instructions Indication:Sinusitis, bacterial Start:30-Nov-2017 Instruction Type:Provider Instructions for Treatment How to access health informa tion online Indication:Non-smoker Start:03-Aug-2017 Instruction Type:Patient Education How to access health informa tion online - Detail Indication:Non-smoker Start:03-Aug-2017 Instruction Type:Patient Education Patient Instructions Indication:Non-smoker Start:03-Aug-2017 Instruction Type:Provider Instructions for Treatment How to access health informa tion online Indication:BMI 21.0-21.9, adult Start:31-May-2017 Instruction Type:Patient Education How to access health informa tion online - Detail Indication:BMI 21.0-21.9, adult Start:31-May-2017 Instruction Type:Patient Education Patient Instructions Indication:BMI 21.0-21.9, adult Start:31-May-2017 Instruction Type:Provider Instructions for Treatment How to access health informa tion online Indication:Mild asthma Start:02-Mar-2017 Instruction Type:Patient Education How to access health informa tion online - Detail Indication:Mild asthma Start:02-Mar-2017 Instruction Type:Patient Education Patient Instructions Indication:Mild asthma Start:02-Mar-2017 Instruction Type:Provider Instructions for Treatment How to access health informa tion online Indication:Sore throat Start:10-Feb-2017 Instruction Type:Patient Education How to access health informa tion online - Detail Indication:Sore throat Start:10-Feb-2017 Instruction Type:Patient Education Patient Instructions Indication:Sore throat Start:10-Feb-2017 Instruction Type:Provider Instructions for Treatment How to access health informa tion online Indication:Atypical migraine Start:10-Oct-2015 Instruction Type:Patient Education How to access health informa tion online - Detail Indication:Atypical migraine Start:10-Oct-2015 Instruction Type:Patient Education Patient Instructions Indication:Atypical migraine Start:10-Oct-2015 Instruction Type:Provider Instructions for Treatment How to access health informa tion online Indication:Atypical migraine Start:30-Aug-2015 Instruction Type:Patient Education How to access health informa tion online - Detail Indication:Atypical migraine Start:30-Aug-2015 Instruction Type:Patient Education Patient Instructions Indication:Atypical migraine Start:30-Aug-2015 Instruction Type:Provider Instructions for Treatment Patient Instructions Indication:Vitamin D deficiency Start:09-Aug-2015 Instruction Type:Provider Instructions for Treatment Patient Instructions Indication:Vitamin D deficiency Start:28-Jun-2015 Instruction Type:Provider Instructions for Treatment How to access health informa tion online Indication:Atypical migraine Start:31-May-2015 Instruction Type:Patient Education How to access health informa tion online - Detail Indication:Atypical migraine Start:31-May-2015 Instruction Type:Patient Education Patient Instructions Indication:Atypical migraine Start:31-May-2015 Instruction Type:Provider Instructions for Treatment Patient Instructions Indication:Pleurisy Start:26-Feb-2015 Instruction Type:Provider Instructions for Treatment Name Dates Details How to access health informa tion online Indication:Non-smoker Start:08-Mar-2019 Instruction Type:Patient Education How to access health informa tion online - Detail Indication:Non-smoker Start:08-Mar-2019 Instruction Type:Patient Education Patient Instructions Indication:Non-smoker Start:08-Mar-2019 Instruction Type:Provider Instructions for Treatment How to access health informa tion online Indication:Insect bite Start:06-Dec-2018 Instruction Type:Patient Education How to access health informa tion online - Detail Indication:Insect bite Start:06-Dec-2018 Instruction Type:Patient Education Patient Instructions Indication:Insect bite Start:06-Dec-2018 Instruction Type:Provider Instructions for Treatment How to access health informa tion online Indication:BMI 22.0-22.9, adult Start:24-Oct-2018 Instruction Type:Patient Education How to access health informa tion online - Detail Indication:BMI 22.0-22.9, adult Start:24-Oct-2018 Instruction Type:Patient Education Patient Instructions Indication:BMI 22.0-22.9, adult Start:24-Oct-2018 Instruction Type:Provider Instructions for Treatment How to access health informa tion online Indication:Non-smoker Start:08-Mar-2018 Instruction Type:Patient Education How to access health informa tion online - Detail Indication:Non-smoker Start:08-Mar-2018 Instruction Type:Patient Education Patient Instructions Indication:Non-smoker Start:08-Mar-2018 Instruction Type:Provider Instructions for Treatment How to access health informa tion online Indication:Non-smoker Start:11-Feb-2018 Instruction Type:Patient Education How to access health informa tion online - Detail Indication:Non-smoker Start:11-Feb-2018 Instruction Type:Patient Education Patient Instructions Indication:Non-smoker Start:11-Feb-2018 Instruction Type:Provider Instructions for Treatment How to access health informa tion online Indication:Non-smoker Start:07-Feb-2018 Instruction Type:Patient Education How to access health informa tion online - Detail Indication:Non-smoker Start:07-Feb-2018 Instruction Type:Patient Education Patient Instructions Indication:Non-smoker Start:07-Feb-2018 Instruction Type:Provider Instructions for Treatment How to access health informa tion online Indication:Non-smoker Start:24-Jan-2018 Instruction Type:Patient Education How to access health informa tion online - Detail Indication:Non-smoker Start:24-Jan-2018 Instruction Type:Patient Education Patient Instructions Indication:Non-smoker Start:24-Jan-2018 Instruction Type:Provider Instructions for Treatment How to access health informa tion online Indication:BMI 23.0-23.9, adult Start:24-Dec-2017 Instruction Type:Patient Education How to access health informa tion online - Detail Indication:BMI 23.0-23.9, adult Start:24-Dec-2017 Instruction Type:Patient Education Patient Instructions Indication:BMI 23.0-23.9, adult Start:24-Dec-2017 Instruction Type:Provider Instructions for Treatment How to access health informa tion online Indication:Non-smoker Start:23-Dec-2017 Instruction Type:Patient Education How to access health informa tion online - Detail Indication:Non-smoker Start:23-Dec-2017 Instruction Type:Patient Education Patient Instructions Indication:Non-smoker Start:23-Dec-2017 Instruction Type:Provider Instructions for Treatment How to access health informa tion online Indication:Non-smoker Start:30-Nov-2017 Instruction Type:Patient Education How to access health informa tion online - Detail Indication:Non-smoker Start:30-Nov-2017 Instruction Type:Patient Education Patient Instructions Indication:Sinusitis, bacterial Start:30-Nov-2017 Instruction Type:Provider Instructions for Treatment How to access health informa tion online Indication:Non-smoker Start:03-Aug-2017 Instruction Type:Patient Education How to access health informa tion online - Detail Indication:Non-smoker Start:03-Aug-2017 Instruction Type:Patient Education Patient Instructions Indication:Non-smoker Start:03-Aug-2017 Instruction Type:Provider Instructions for Treatment How to access health informa tion online Indication:BMI 21.0-21.9, adult Start:31-May-2017 Instruction Type:Patient Education How to access health informa tion online - Detail Indication:BMI 21.0-21.9, adult Start:31-May-2017 Instruction Type:Patient Education Patient Instructions Indication:BMI 21.0-21.9, adult Start:31-May-2017 Instruction Type:Provider Instructions for Treatment How to access health informa tion online Indication:Mild asthma Start:02-Mar-2017 Instruction Type:Patient Education How to access health informa tion online - Detail Indication:Mild asthma Start:02-Mar-2017 Instruction Type:Patient Education Patient Instructions Indication:Mild asthma Start:02-Mar-2017 Instruction Type:Provider Instructions for Treatment How to access health informa tion online Indication:Sore throat Start:10-Feb-2017 Instruction Type:Patient Education How to access health informa tion online - Detail Indication:Sore throat Start:10-Feb-2017 Instruction Type:Patient Education Patient Instructions Indication:Sore throat Start:10-Feb-2017 Instruction Type:Provider Instructions for Treatment How to access health informa tion online Indication:Atypical migraine Start:10-Oct-2015 Instruction Type:Patient Education How to access health informa tion online - Detail Indication:Atypical migraine Start:10-Oct-2015 Instruction Type:Patient Education Patient Instructions Indication:Atypical migraine Start:10-Oct-2015 Instruction Type:Provider Instructions for Treatment How to access health informa tion online Indication:Atypical migraine Start:30-Aug-2015 Instruction Type:Patient Education How to access health informa tion online - Detail Indication:Atypical migraine Start:30-Aug-2015 Instruction Type:Patient Education Patient Instructions Indication:Atypical migraine Start:30-Aug-2015 Instruction Type:Provider Instructions for Treatment Patient Instructions Indication:Vitamin D deficiency Start:09-Aug-2015 Instruction Type:Provider Instructions for Treatment Patient Instructions Indication:Vitamin D deficiency Start:28-Jun-2015 Instruction Type:Provider Instructions for Treatment How to access health informa tion online Indication:Atypical migraine Start:31-May-2015 Instruction Type:Patient Education How to access health informa tion online - Detail Indication:Atypical migraine Start:31-May-2015 Instruction Type:Patient Education Patient Instructions Indication:Atypical migraine Start:31-May-2015 Instruction Type:Provider Instructions for Treatment Patient Instructions Indication:Pleurisy Start:26-Feb-2015 Instruction Type:Provider Instructions for Treatment Name Dates Details How to access health informa tion online Indication:BMI 22.0-22.9, adult Start:24-Oct-2018 Instruction Type:Patient Education How to access health informa tion online - Detail Indication:BMI 22.0-22.9, adult Start:24-Oct-2018 Instruction Type:Patient Education Patient Instructions Indication:BMI 22.0-22.9, adult Start:24-Oct-2018 Instruction Type:Provider Instructions for Treatment How to access health informa tion online Indication:Non-smoker Start:08-Mar-2018 Instruction Type:Patient Education How to access health informa tion online - Detail Indication:Non-smoker Start:08-Mar-2018 Instruction Type:Patient Education Patient Instructions Indication:Non-smoker Start:08-Mar-2018 Instruction Type:Provider Instructions for Treatment How to access health informa tion online Indication:Non-smoker Start:11-Feb-2018 Instruction Type:Patient Education How to access health informa tion online - Detail Indication:Non-smoker Start:11-Feb-2018 Instruction Type:Patient Education Patient Instructions Indication:Non-smoker Start:11-Feb-2018 Instruction Type:Provider Instructions for Treatment How to access health informa tion online Indication:Non-smoker Start:07-Feb-2018 Instruction Type:Patient Education How to access health informa tion online - Detail Indication:Non-smoker Start:07-Feb-2018 Instruction Type:Patient Education Patient Instructions Indication:Non-smoker Start:07-Feb-2018 Instruction Type:Provider Instructions for Treatment How to access health informa tion online Indication:Non-smoker Start:24-Jan-2018 Instruction Type:Patient Education How to access health informa tion online - Detail Indication:Non-smoker Start:24-Jan-2018 Instruction Type:Patient Education Patient Instructions Indication:Non-smoker Start:24-Jan-2018 Instruction Type:Provider Instructions for Treatment How to access health informa tion online Indication:BMI 23.0-23.9, adult Start:24-Dec-2017 Instruction Type:Patient Education How to access health informa tion online - Detail Indication:BMI 23.0-23.9, adult Start:24-Dec-2017 Instruction Type:Patient Education Patient Instructions Indication:BMI 23.0-23.9, adult Start:24-Dec-2017 Instruction Type:Provider Instructions for Treatment How to access health informa tion online Indication:Non-smoker Start:23-Dec-2017 Instruction Type:Patient Education How to access health informa tion online - Detail Indication:Non-smoker Start:23-Dec-2017 Instruction Type:Patient Education Patient Instructions Indication:Non-smoker Start:23-Dec-2017 Instruction Type:Provider Instructions for Treatment How to access health informa tion online Indication:Non-smoker Start:30-Nov-2017 Instruction Type:Patient Education How to access health informa tion online - Detail Indication:Non-smoker Start:30-Nov-2017 Instruction Type:Patient Education Patient Instructions Indication:Sinusitis, bacterial Start:30-Nov-2017 Instruction Type:Provider Instructions for Treatment How to access health informa tion online Indication:Non-smoker Start:03-Aug-2017 Instruction Type:Patient Education How to access health informa tion online - Detail Indication:Non-smoker Start:03-Aug-2017 Instruction Type:Patient Education Patient Instructions Indication:Non-smoker Start:03-Aug-2017 Instruction Type:Provider Instructions for Treatment How to access health informa tion online Indication:BMI 21.0-21.9, adult Start:31-May-2017 Instruction Type:Patient Education How to access health informa tion online - Detail Indication:BMI 21.0-21.9, adult Start:31-May-2017 Instruction Type:Patient Education Patient Instructions Indication:BMI 21.0-21.9, adult Start:31-May-2017 Instruction Type:Provider Instructions for Treatment How to access health informa tion online Indication:Mild asthma Start:02-Mar-2017 Instruction Type:Patient Education How to access health informa tion online - Detail Indication:Mild asthma Start:02-Mar-2017 Instruction Type:Patient Education Patient Instructions Indication:Mild asthma Start:02-Mar-2017 Instruction Type:Provider Instructions for Treatment How to access health informa tion online Indication:Sore throat Start:10-Feb-2017 Instruction Type:Patient Education How to access health informa tion online - Detail Indication:Sore throat Start:10-Feb-2017 Instruction Type:Patient Education Patient Instructions Indication:Sore throat Start:10-Feb-2017 Instruction Type:Provider Instructions for Treatment How to access health informa tion online Indication:Atypical migraine Start:10-Oct-2015 Instruction Type:Patient Education How to access health informa tion online - Detail Indication:Atypical migraine Start:10-Oct-2015 Instruction Type:Patient Education Patient Instructions Indication:Atypical migraine Start:10-Oct-2015 Instruction Type:Provider Instructions for Treatment How to access health informa tion online Indication:Atypical migraine Start:30-Aug-2015 Instruction Type:Patient Education How to access health informa tion online - Detail Indication:Atypical migraine Start:30-Aug-2015 Instruction Type:Patient Education Patient Instructions Indication:Atypical migraine Start:30-Aug-2015 Instruction Type:Provider Instructions for Treatment Patient Instructions Indication:Vitamin D deficiency Start:09-Aug-2015 Instruction Type:Provider Instructions for Treatment Patient Instructions Indication:Vitamin D deficiency Start:28-Jun-2015 Instruction Type:Provider Instructions for Treatment How to access health informa tion online Indication:Atypical migraine Start:31-May-2015 Instruction Type:Patient Education How to access health informa tion online - Detail Indication:Atypical migraine Start:31-May-2015 Instruction Type:Patient Education Patient Instructions Indication:Atypical migraine Start:31-May-2015 Instruction Type:Provider Instructions for Treatment Patient Instructions Indication:Pleurisy Start:26-Feb-2015 Instruction Type:Provider Instructions for Treatment Discharge Instructions * Discharge Instr - [facility]* Suzi Mckenzie RN - 10/08/2019 10:37 AM EDT Continuity of Care Form Patient Name: Doug Flanagan : 1990 Admit date: 10/07/2019 Discharge date: 10/08/2019 Code Status Order: Full Code Advance Directives: Advance Care Flowsheet Documentation Date/Time Healthcare Directive Type of Healthcare Directive Copy in Chart Healthcare Agent Appointed Healthcare Agent's Name Healthcare Agent's Phone Number 10/07/19 0218 No, patient does not have an advance directive for healthcare treatment -- -- -- -- -- Admitting Physician: Khurram Kunz MD PCP: DYLAN VELARDE Discharging Nurse: Suzi Mckenzie Discharging Hospital Unit/Room#: 9283/0909N Discharging Unit Emergency Contact: Extended Emergency Contact Information Primary Emergency Contact: Genny Flanagan [facility] Relation: Parent Secondary Emergency Contact: Karen Flanagan [facility] Relation: Parent Past Surgical History: Past Surgical History: Procedure Laterality Date APPENDECTOMY 2006 HIP ARTHROSCOPY Right 2013 OTHER SURGICAL HISTORY Right 07/22/2018 THORACIS RESECTION, THYMIC TISSUE, ANT MEDIASTINAL THYMECTOMY Immunization History: There is no immunization history on file for this patient. Active Problems: Patient Active Problem List Diagnosis Code MG (myasthenia gravis) ([facility]) G70.00 S/P thymectomy Z90.89 Seizures ([facility]) R56.9 Isolation/Infection: Isolation No Isolation Patient Infection Status None to display Nurse Assessment: Last Vital Signs: BP (!) 100/54 Pulse 71 Temp 98.2 F (36.8 C) (Temporal) Resp 15 Ht 5' 2 (1.575 m) Wt 120 lb (54.4 kg) SpO2 98% BMI 21.95 kg/m Last documented pain score (0-10 scale): Pain Level: 8 Last Weight: Wt Readings from Last 1 Encounters: 10/07/19 120 lb (54.4 kg) Mental Status: {IP PT MENTAL STATUS:} IV Access: { [facility] IV ACCESS:786343102} Nursing Mobility/ADLs: Walking {CHP DME ADLs:209122263} Transfer {CHP DME ADLs:754571211} Bathing {CHP DME ADLs:237499055} Dressing {CHP DME ADLs:880662047} Toileting {CHP DME ADLs:053702606} Feeding {P DME ADLs:091067733} Floor Tech {P DME ADLs:880191010} Med Delivery { [facility] MED Delivery:638010543} Wound Care Documentation and Therapy: Elimination: Continence: Bowel: {YES / NO:} Bladder: {YES / NO:} Urinary Catheter: {Urinary Catheter:983621712} Colostomy/Ileostomy/Ileal Conduit: {YES / NO:} Date of Last BM: Intake/Output Summary (Last 24 hours) at 10/08/2019 1037 Last data filed at 10/07/2019 1449 Gross per 24 hour Intake 240 ml Output Net 240 ml I/O last 3 completed shifts: In: 480 [P.O.:480] Out: - Safety Concerns: { [facility] Safety Concerns:433665410} Impairments/Disabilities: { [facility] Impairments/Disabilities:071217004} Nutrition Therapy: Current Nutrition Therapy: { [facility] Diet List:396301649} Routes of Feeding: {CHP DME Other Feedings:603214410} Liquids: {[facility] liquid thickness:75979} Daily Fluid Restriction: {CHP DME Yes amt example:467870270} Last Modified Barium Swallow with Video (Video Swallowing Test): {Done Not Done Date:} Treatments at the Time of Hospital Discharge: Respiratory Treatments: Oxygen Therapy: {Therapy; copd oxygen:99466} Ventilator: { CC Vent List:133981541} Rehab Therapies: {THERAPEUTIC INTERVENTION:9220112306} Weight Bearing Status/Restrictions: { CC Weight Bearin} Other Medical Equipment (for information only, NOT a DME order): {EQUIPMENT:921365246} Other Treatments: Patient's personal belongings (please select all that are sent with patient): {[facility] DME Belongings:669984809} RN SIGNATURE: {Esignature:793152285} CASE MANAGEMENT/SOCIAL WORK SECTION Inpatient Status Date: Readmission Risk Assessment Score: Readmission Risk Risk of Unplanned Readmission: 4 Discharging to Facility/ Agency Name: Address: Phone: Fax: Dialysis Facility (if applicable) Name: Address: Dialysis Schedule: Phone: Fax: Record Tester/Oyster Farmer signature: {Esignature:411199842} PHYSICIAN SECTION Prognosis: {Prognosis:8247116980} Condition at Discharge: { Patient Condition:471246961} Rehab Potential (if transferring to Rehab): {Prognosis:8881876660} Recommended Labs or Other Treatments After Discharge: Physician Certification: I certify the above information and transfer of Doug Flanagan is necessary for the continuing treatment of the diagnosis listed and that she requires {Admit to Appropriate Level of Care:91755} for {GREATER/LESS:097910882} 30 days. Update Admission H&P: {CHP DME Changes in HandP:181644206} PHYSICIAN SIGNATURE: {Esignature:043740843} * Additional Instructions* Meghan Fiore MD - 10/08/2019 Your instructions: Recommended diet: regular diet Recommended activity: activity as tolerated - increase OXC to 150mg BID-she will need to have BMP within 2-4 weeks to ensure stable sodium levels -Continue ZNS and LTG at home doses -Follow with Dr. Gilmore Seizure precautions Please be mindful of seizure precautions: no swimming, no unmonitored baths, and, in general, no activities in which a sudden loss of consciousness could potentially cause severe injury to yourself or others (horseback riding, climbing trees, holding babies or small children, etc). Driving Risk: Having a seizure while driving puts both you and others on the road at risk for injury. Current state law requires a six month seizure free period before being able to drive. GENERAL ZONES GREEN ZONE: All Clear- Your Symptoms Are Under Control No recurrence of symptoms that led to hospitalization Able to do usual activities No fever No chest pain No shortness of breath This Means You Should: Continue taking your medications as prescribed Continue activity as tolerated Keep all doctor appointments YELLOW ZONE: Caution Recurrence of symptoms that led to hospitalization Fever of 100 degrees or higher Increased fatigue or restlessness Intolerant side-effects of medications Uneasy feeling or that something is wrong This Means You Should: Call your doctor for further instructions RED ZONE: Medical Alert Severe or unrelieved shortness of breath at rest Unrelieved chest pain Confusion or you can't think clearly This Means You Should Call 911 Immediately documented in this encounter* Instructions* Jacobo Valenzuela MD - 03/13/2020 Return if any concerns. Follow-up with primary care and the neurologist. documented in this encounter Assessments Diagnosis Seizures (HCC) Other convulsions Diagnosis Feared complaint without diagnosis Person with feared complaint in whom no diagnosis was made Chief Complaint and Reason for Visit Chief Complaint FAX RESULTS Chief Complaint PAIN AT MEDIPORT SIT E Chief Complaint PAIN AT MEDIPORT SIT E FALLS. 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) Chief Complaint ELIESER GARTH ELIESER GARTH seizure abd pain Chief Complaint seizure abd pain FALL Chief Complaint abd pain FALL ABD PAIN Chief Complaint FALL ABD PAIN SEIZURE Chief Complaint FALL ABD PAIN SEIZURE N/V Chief Complaint ABD PAIN SEIZURE N/V SEIZURE Chief Complaint N/V SEIZURE Chief Complaint Admit Date MYASTHENIA GRAVIS April 12, 2024 2:40pm EORDER April 17, 2024 7:55am 3 M FU July 06, 2024 8:20 am Epilepsy, unspecified, not intractable, July 18, 2024 8:13am Booked from other vendor July 26 1:27pm Reason for Visit Admit Date Fatigue April 12, 2024 2:40pm Myasthenia gravis April 12, 2024 2:40pm Epilepsy April 12, 2024 2:40pm Anxiety July 06, 2024 8:20 am Hyperammonemia July 06, 2024 8:20 am Myasthenia gravis July 06, 2024 8:20 am Epilepsy July 06, 2024 8:20 am Encounter to establish care July 26, 2024 1:27pm Myasthenia gravis July 26, 2024 1:2 7pm Chronic abdominal pain July 26, 2024 1:27pm Chronic constipation July 26, 2024 1: 27pm Epilepsy July 26, 2024 1:2 7pm Chief Complaint Admit Date EORDER April 17, 2024 7:55am 3 M FU July 06, 2024 8:20 am Epilepsy, unspecified, not intractable, July 18, 2024 8:13am Booked from other vendor July 26 1:27pm INT LAB ORDERS FOR 2 ORDERING DOCTORS [facility] 2024 9:21am Reason for Visit Admit Date Anxiety July 06, 2024 8:20 am Hyperammonemia July 06, 2024 8:20 am Myasthenia gravis July 06, 2024 8:20 am Epilepsy July 06, 2024 8:20 am Encounter to establish care July 26, 2024 1:27pm Myasthenia gravis July 26, 2024 1:2 7pm Chronic abdominal pain July 26, 2024 1:27pm Chronic constipation July 26, 2024 1: 27pm Epilepsy July 26, 2024 1:2 7pm Chief Complaint Admit Date 3 M FU July 06, 2024 8:20 am Epilepsy, unspecified, not intractable, July 18, 2024 8:13am Booked from other vendor July 26 1:27pm INT LAB ORDERS FOR 2 ORDERING DOCTORS [facility] 2024 9:21am Constipation August 16, 2024 7:4 4am INT LABS August 16, 2024 8:3 4am seizure August 18, 2024 11: 43am Reason for Visit Admit Date Anxiety July 06, 2024 8:20 am Hyperammonemia July 06, 2024 8:20 am Myasthenia gravis July 06, 2024 8:20 am Epilepsy July 06, 2024 8:20 am Encounter to establish care July 26, 2024 1:27pm Myasthenia gravis July 26, 2024 1:2 7pm Chronic abdominal pain July 26, 2024 1:27pm Chronic constipation July 26, 2024 1: 27pm Epilepsy July 26, 2024 1:2 7pm Bloating August 16, 2024 7:4 4am Chronic constipation August 16, 2024 7: 44am Chief Complaint Admit Date 3 M FU July 06, 2024 8:20 am Epilepsy, unspecified, not intractable, July 18, 2024 8:13am Booked from other vendor July 26 1:27pm INT LAB ORDERS FOR 2 ORDERING DOCTORS [facility] 2024 9:21am Constipation August 16, 2024 7:4 4am INT LABS August 16, 2024 8:3 4am seizure August 18, 2024 11: 43am 1 M FU September 14, 2024 7:40a m Reason for Visit Admit Date Anxiety July 06, 2024 8:20 am Hyperammonemia July 06, 2024 8:20 am Myasthenia gravis July 06, 2024 8:20 am Epilepsy July 06, 2024 8:20 am Encounter to establish care July 26, 2024 1:27pm Myasthenia gravis July 26, 2024 1:2 7pm Chronic abdominal pain July 26, 2024 1:27pm Chronic constipation July 26, 2024 1: 27pm Epilepsy July 26, 2024 1:2 7pm Bloating August 16, 2024 7:4 4am Chronic constipation August 16, 2024 7: 44am Bloating September 14, 2024 7:40a m Chronic constipation September 14, 2024 7:40 am Chief Complaint Admit Date 3 M FU July 06, 2024 8:20 am Epilepsy, unspecified, not intractable, July 18, 2024 8:13am Booked from other vendor July 26 1:27pm INT LAB ORDERS FOR 2 ORDERING DOCTORS [facility] 2024 9:21am Constipation August 16, 2024 7:4 4am INT LABS August 16, 2024 8:3 4am seizure August 18, 2024 11: 43am 1 M FU September 14, 2024 7:40a m BLOATING October 03, 2024 10:34 am Chief Complaint Admit Date 3 M FU July 06, 2024 8:20 am Epilepsy, unspecified, not intractable, July 18, 2024 8:13am Booked from other vendor July 26 1:27pm INT LAB ORDERS FOR 2 ORDERING DOCTORS [facility] 2024 9:21am Constipation August 16, 2024 7:4 4am INT LABS August 16, 2024 8:3 4am seizure August 18, 2024 11: 43am 1 M FU September 14, 2024 7:40a m BLOATING October 03, 2024 10:34 am SEIZURE October 06, 2024 1:38p m Chief Complaint Admit Date 3 M FU July 06, 2024 8:20 am Epilepsy, unspecified, not intractable, July 18, 2024 8:13am Booked from other vendor July 26 1:27pm INT LAB ORDERS FOR 2 ORDERING DOCTORS [facility] 2024 9:21am Constipation August 16, 2024 7:4 4am INT LABS August 16, 2024 8:3 4am seizure August 18, 2024 11: 43am 1 M FU September 14, 2024 7:40a m BLOATING October 03, 2024 10:34 am SEIZURE October 06, 2024 1:38p m [facility] FU-RECORDS R EQUESTED October 13, 2024 2:42pm E-ORDER October 13, 2024 3:51 pm Reason for Visit Admit Date Anxiety July 06, 2024 8:20 am Hyperammonemia July 06, 2024 8:20 am Myasthenia gravis July 06, 2024 8:20 am Epilepsy July 06, 2024 8:20 am Encounter to establish care July 26, 2024 1:27pm Myasthenia gravis July 26, 2024 1:2 7pm Chronic abdominal pain July 26, 2024 1:27pm Chronic constipation July 26, 2024 1: 27pm Epilepsy July 26, 2024 1:2 7pm Bloating August 16, 2024 7:4 4am Chronic constipation August 16, 2024 7: 44am Bloating September 14, 2024 7:40a m Chronic constipation September 14, 2024 7:40 am Nausea October 13, 2024 2:42 pm Pharyngeal damage during airway intubati on October 13, 2024 2:42pm Shortness of breath October 13, 2024 2:42 pm Reason for Visit Admit Date Anxiety July 06, 2024 8:20 am Hyperammonemia July 06, 2024 8:20 am Myasthenia gravis July 06, 2024 8:20 am Epilepsy July 06, 2024 8:20 am Encounter to establish care July 26, 2024 1:27pm Myasthenia gravis July 26, 2024 1:2 7pm Chronic abdominal pain July 26, 2024 1:27pm Chronic constipation July 26, 2024 1: 27pm Epilepsy July 26, 2024 1:2 7pm Bloating August 16, 2024 7:4 4am Chronic constipation August 16, 2024 7: 44am Bloating September 14, 2024 7:40a m Chronic constipation September 14, 2024 7:40 am Hospital discharge follow-up October 13, 2024 2:42pm Nausea October 13, 2024 2:42 pm Pharyngeal damage during airway intubati on October 13, 2024 2:42pm Shortness of breath October 13, 2024 2:42 pm Chief Complaint Admit Date 3 M FU July 06, 2024 8:20 am Epilepsy, unspecified, not intractable, July 18, 2024 8:13am Booked from other vendor July 26 1:27pm INT LAB ORDERS FOR 2 ORDERING DOCTORS Ap 2024 9:21am Constipation August 16, 2024 7:4 4am INT LABS August 16, 2024 8:3 4am seizure August 18, 2024 11: 43am 1 M FU September 14, 2024 7:40a m BLOATING October 03, 2024 10:34 am SEIZURE October 06, 2024 1:38p m ACUTE [facility] FU-RECORDS R EQUESTED October 13, 2024 2:42pm E-ORDER October 13, 2024 3:51 pm 3 M FU November 02, 2024 2:06p m Reason for Referral Specialty Diagnoses / Procedures Referred By Contac t Referred To Contact Radiology Diagnoses MG (myasthenia gravis) (HCC) Myasthenia gravis with (acute) exacerbation (HCC) Procedures IR CVC tunneled dialysis catheter placement Renny Cantor MD [address] [facility] [address] [place] [address] Referral ID Status Reason Start Date Expiration Date Visits Re quested Visits Authorized [id number] Closed 07/28/2022 01/24/2023 1 1 Specialty Diagnoses / Procedures Referred By Contac t Referred To Contact Diagnoses Breakthrough seizure Procedures EEG, ROUTINE Edgar Ayers MD [address] [facility] [place] [address] Referral ID Status Reason Start Date Expiration Date V isits Requested Visits Authorized [id number] New Request 11/13/2022 12/08/2023 1 1 Specialty Diagnoses / Procedures Referred By Contac t Referred To Contact Diagnoses MG (myasthenia gravis) Renee Donald R, CUSTOMER SALES REPRESENTATIVE-PLATFORM MATERIAL HANDLING SUPERVISOR [address] [facility] [facility] [address] Referral ID Status Reason Start Date Expiration Date V isits Requested Visits Authorized [id number] New Request 08/12/2023 09/05/2024 1 1 Scheduling Instructions Jordy Gaitan [facility] [place] (Orthopedic, Sports Rehab) [address], [address], [place] [address] Outpatient Care [place] (Burn, Neurological, Orthopedic, Pelvic Health, Sports Rehab) [address] [facility], [address], [place] [address] Outpatient Care [facility] (Orthopedic Rehab) [address], [address], [place] [address] Outpatient Care [place] (Orthopedic, Pelvic Health, Sports) [address] [facility], [address], [place] [address] Outpatient Care [facility] Pelvic Health [address] [facility], [address], [place] [address] Outpatient Care [place] (Orthopedic, Pelvic Health, Sports Rehab) [address], [address], [place] [address] Outpatient Care [facility] [place] (Aquatic, Burn, Neurological, Orthopedic, Pelvic Health Rehab) [address], [facility] [address], [place] [address] Outpatient Care [place] (Burn, Neurological, Orthopedic, Pelvic Health, Sports Rehab) [address] [facility] [facility], [address] [address] Outpatient Rehabilitation [facility] (Burn, Neurological, Orthopedic Rehab) [address] [place] [address] Outpatient Rehabilitation [facility] (Aquatic, Burn, Neurological, Orthopedic, Pelvic Health Rehab) [address], [place] [address] Outpatient Rehabilitation [place] (Burn, Neurological, Orthopedic Rehab) [address] [place] [address] Sports Medicine Rehabilitation at [facility] (Orthopedic, Sports Rehab) [address] [facility], [facility] [address], [place] [address] Sports [facility] (Orthopedic, Sports Rehab) [address], [address], [place] [address] Sports Medicine Rehabilitation [facility] (Orthopedic, Sports Rehab) [address] , [place] [address] Sports Medicine Rehabilitation [facility] (Aquatic, Orthopedic, Pelvic Health, Sports Rehab) [address] [facility] [place] [address] Sports Medicine Rehabilitation [facility] (Orthopedic, Sports Rehab) [address] [place] [address] Sports Medicine Rehabilitation [facility] (Orthopedic, Sports Rehab) [address] [facility] and Miquel Barbour [facility], [address], [place] [address] Specialty Diagnoses / Procedures Referred By Arnaud rosario Referred To Contact Multispecialty Diagnoses MG (myasthenia gravis) Renee Donald, CUSTOMER SALES REPRESENTATIVE-PLATFORM MATERIAL HANDLING SUPERVISOR [address] [facility] [address] Referral ID Status Reason Start Date Expiration Date V isits Requested Visits Authorized [id number] New Request 08/12/2023 09/05/2024 1 1 Specialty Diagnoses / Procedures Referred By Arnaud rosario Referred To Contact Diagnoses Localization-related (focal) (partial) idiopathic epilepsy and epileptic syndromes with seizures of localized onset, intractable, without status epilepticus Edgar Ayers MD [address] [place] [address] Referral ID Status Reason Start Date Expiration Date V isits Requested Visits Authorized [id number] Authorized 01/22/2024 02/20/2025 1 1 Additional Source Comments INFORMATION SOURCE (unrecogn ized section and content) DATE CREATED AUTHOR 10/21/2017 [facility] DATE CREATED AUTHOR AUTHOR'S LULUIZ ATLATRELL 10/27/2017 [facility] DATE CREATED AUTHOR AUTHOR'S ORGANIZ ATION 07/13/2018 [facility] DATE CREATED AUTHOR AUTHOR'S ORGANIZ ATION 03/19/2020 [facility] DATE CREATED AUTHOR AUTHOR'S ORGANIZ ATION 09/07/2022 [facility] DATE CREATED AUTHOR AUTHOR'S ORGANIZ ATION 11/02/2023 [facility] DATE CREATED AUTHOR AUTHOR'S ORGANIZ ATION 10/08/2024 [place] DATE CREATED AUTHOR AUTHOR'S ORGANIZ ATION 10/11/2024 [facility] DATE CREATED AUTHOR AUTHOR'S ORGANIZ ATION 10/22/2024 [facility] Reason for Visit (unrecogniz ed section and content) Reason Comments Seizures Reason Comments Pelvic Pain Reason Comments Colposcopy Reason Comments Results Reason Comments Follow Up discuss [facility] Specialty Diagnoses / Procedures Referred By Arnaud rosario Referred To Contact [facility] Diagnoses Encounter for IUD removal Pelvic pain in female Encounter for insertion of intrauterine contraceptive device Procedures REMOVE INTRAUTERINE DEVICE REMOVE INTRAUTERINE DEVICE INSERT INTRAUTERINE DEVICE LEVONORGESTREL IU 52MG 5 YR Louise Flanagan APRN.CN [address] [place] [address] [facility] [address] [facility] [place] [address] Referral ID Status Reason Start Date Expiration Date Visits Requested Visits Authorized [id number] Authorized Auto-Generat ed Referral 08/20/2021 05/02/2022 2 2 Reason Comments Pre-Op Visit Reason Comments Patient Update Reason Comments Trauma left leg possible fr acture, painful to walk x 4 days Reason Comments Rib Injury L side x1 day Reason Comments Orders Reason Comments Severe Abdominal Pain Constipation- CT a t [place] 03/27 in Care Everywhere Reason Comments Colposcopy Reason Comments Cough Coughing up mucus, c hest and back pain x 4 days Specialty Diagnoses / Procedures Referred By Arnaud rosario Referred To Contact Radiology Diagnoses MG (myasthenia gravis) (HCC) Myasthenia gravis with (acute) exacerbation (HCC) Procedures IR CVC tunneled dialysis catheter placement Renny Cantor MD [address] [place] [address] [address] [place] [address] Referral ID Status Reason Start Date Expiration Date Visits Re quested Visits Authorized [id number] Closed 07/28/2022 01/24/2023 1 1 Reason Comments Fatigue Chest Pain Pt has hx of Myasthe jerald Gravis. Pt was here today for a port placement and to receive plasmapheresis. Pt is awake and alert, came here because she is feeling CP and headache, SOB. States she is having a flare up. Specialty Diagnoses / Procedures Referred By Contac t Referred To Contact Diagnoses Myasthenic crisis (HCC) Procedures G70.01 Ward Zhao, DO [address] [place] [address] [facility] [address] [place] [address] Referral ID Status Reason Start Date Expiration Date Visits Re quested Visits Authorized [id number] 1 1 Reason Comments Myasthenia Gravis Specialty Diagnoses / Procedures Referred By Contac t Referred To Contact Neurology Diagnoses Myasthenia gravis Gerald Gilmore MD [address] [place] [address] [facility] [address] [place] [address] Referral ID Status Reason Start Date Expiration Date V isits Requested Visits Authorized [id number] New Request 09/10/2022 10/05/2023 1 1 Specialty Diagnoses / Procedures Referred By Contac t Referred To Contact Diagnoses Seizures, MG Nancy Faith MD [address] [place] [address] [address] [place] [address] [facility] [address] [place] [address] Referral ID Status Reason Start Date Expiration Date Visits Re quested Visits Authorized [id number] 1 1 Reason Comments New Patient Specialty Diagnoses / Procedures Referred By Contac t Referred To Contact Neurology Diagnoses Breakthrough seizure Merrick Lopez MD [address] [place] [address] Referral ID Status Reason Start Date Expiration Date Visits Re quested Visits Authorized [id number] Closed 11/02/2022 11/27/2023 1 1 Reason Comments Follow-up Specialty Diagnoses / Procedures Referred By Contact Referred To Contact Certified Nurse Practitioner / Neurology Diagnoses 3 month follow up Procedures RETURN PATIENT Donna Perdomo MD [address] [facility] [address] [place] [address] Renee Donald, CUSTOMER SALES REPRESENTATIVE-PLATFORM MATERIAL HANDLING SUPERVISOR [address] [address] Referral ID Status Reason Start Date Expiration Date Visits Re quested Visits Authorized [id number] Closed 12/03/2022 12/28/2023 1 1 Reason Comments Infusion Visit [facility] Specialty Diagnoses / Procedures Referred By Contac t Referred To Contact Diagnoses MG (myasthenia gravis) Pankaj Mejias MD [address] [place] [address] Infusion [address] [facility] [place] [address] Referral ID Status Reason Start Date Expiration Date Visits Requested Visits Authorized [id number] Authorized - 12/16/2022 100 108 Reason Onset Date Comments Appointment Request 09/04/2022 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 Reason Onset Date Comments Insurance 05/21/2023 Lamotrigine Reason Comments Follow-up Specialty Diagnoses / Procedures Referred By Contac t Referred To Contact Certified Nurse Practitioner / Neurology Diagnoses follow up Procedures RETURN PATIENT Self, Self Renee Donald, CUSTOMER SALES REPRESENTATIVE-PLATFORM MATERIAL HANDLING SUPERVISOR [address] [facility] [address] Referral ID Status Reason Start Date Expiration Date V isits Requested Visits Authorized [id number] Pending Review 08/03/2023 08/27/2024 2 2 Reason Comments Ear Pain right side ear and t hroat pain x 2 days Reason Comments Medication Refill Reason Comments Critical Care Transport Source Comments (unrecognize d section and content) In the event this informatio n is protected by the Federal Confidentiality of Alcohol and Drug Abuse Patient Records regulations: The Federal rules restrict any use of the information to criminally investigate or prosecute any alcohol or drug abuse patient.[facility] the event this information is protected by the Federal Confidentiality of Alcohol and Drug Abuse Patient Records regulations: The Federal rules restrict any use of the information to criminally investigate or prosecute any alcohol or drug abuse patient.[facility] HospitalIn the event this information is protected by the Federal Confidentiality of Alcohol and Drug Abuse Patient Records regulations: The Federal rules restrict any use of the information to criminally investigate or prosecute any alcohol or drug abuse patient.[facility] HospitalIn the event this information is protected by the Federal Confidentiality of Alcohol and Drug Abuse Patient Records regulations: The Federal rules restrict any use of the information to criminally investigate or prosecute any alcohol or drug abuse patient.[facility] HospitalIn the event this information is protected by the Federal Confidentiality of Alcohol and Drug Abuse Patient Records regulations: The Federal rules restrict any use of the information to criminally investigate or prosecute any alcohol or drug abuse patient.[facility] HospitalIn the event this information is protected by the Federal Confidentiality of Alcohol and Drug Abuse Patient Records regulations: The Federal rules restrict any use of the information to criminally investigate or prosecute any alcohol or drug abuse patient.[facility] HospitalIn the event this information is protected by the Federal Confidentiality of Alcohol and Drug Abuse Patient Records regulations: The Federal rules restrict any use of the information to criminally investigate or prosecute any alcohol or drug abuse patient.[facility] HospitalIn the event this information is protected by the Federal Confidentiality of Alcohol and Drug Abuse Patient Records regulations: The Federal rules restrict any use of the information to criminally investigate or prosecute any alcohol or drug abuse patient.[facility] HospitalIn the event this information is protected by the Federal Confidentiality of Alcohol and Drug Abuse Patient Records regulations: The Federal rules restrict any use of the information to criminally investigate or prosecute any alcohol or drug abuse patient.[facility] HospitalIn the event this information is protected by the Federal Confidentiality of Alcohol and Drug Abuse Patient Records regulations: The Federal rules restrict any use of the information to criminally investigate or prosecute any alcohol or drug abuse patient.[facility] HospitalIn the event this information is protected by the Federal Confidentiality of Alcohol and Drug Abuse Patient Records regulations: The Federal rules restrict any use of the information to criminally investigate or prosecute any alcohol or drug abuse patient.[facility] HospitalIn the event this information is protected by the Federal Confidentiality of Alcohol and Drug Abuse Patient Records regulations: The Federal rules restrict any use of the information to criminally investigate or prosecute any alcohol or drug abuse patient.[facility] HospitalIn the event this information is protected by the Federal Confidentiality of Alcohol and Drug Abuse Patient Records regulations: The Federal rules restrict any use of the information to criminally investigate or prosecute any alcohol or drug abuse patient.[facility] HospitalIn the event this information is protected by the Federal Confidentiality of Alcohol and Drug Abuse Patient Records regulations: The Federal rules restrict any use of the information to criminally investigate or prosecute any alcohol or drug abuse patient.[facility] HospitalIn the event this information is protected by the Federal Confidentiality of Alcohol and Drug Abuse Patient Records regulations: The Federal rules restrict any use of the information to criminally investigate or prosecute any alcohol or drug abuse patient.[facility] HospitalIn the event this information is protected by the Federal Confidentiality of Alcohol and Drug Abuse Patient Records regulations: The Federal rules restrict any use of the information to criminally investigate or prosecute any alcohol or drug abuse patient.[facility] HospitalIn the event this information is protected by the Federal Confidentiality of Alcohol and Drug Abuse Patient Records regulations: The Federal rules restrict any use of the information to criminally investigate or prosecute any alcohol or drug abuse patient.[facility] HospitalIn the event this information is protected by the Federal Confidentiality of Alcohol and Drug Abuse Patient Records regulations: The Federal rules restrict any use of the information to criminally investigate or prosecute any alcohol or drug abuse patient.[facility] HospitalIn the event this information is protected by the Federal Confidentiality of Alcohol and Drug Abuse Patient Records regulations: The Federal rules restrict any use of the information to criminally investigate or prosecute any alcohol or drug abuse patient.[facility] HospitalIn the event this information is protected by the Federal Confidentiality of Alcohol and Drug Abuse Patient Records regulations: The Federal rules restrict any use of the information to criminally investigate or prosecute any alcohol or drug abuse patient.[facility] HospitalIn the event this information is protected by the Federal Confidentiality of Alcohol and Drug Abuse Patient Records regulations: The Federal rules restrict any use of the information to criminally investigate or prosecute any alcohol or drug abuse patient.[facility] HospitalIn the event this information is protected by the Federal Confidentiality of Alcohol and Drug Abuse Patient Records regulations: The Federal rules restrict any use of the information to criminally investigate or prosecute any alcohol or drug abuse patient.[facility] HospitalIn the event this information is protected by the Federal Confidentiality of Alcohol and Drug Abuse Patient Records regulations: The Federal rules restrict any use of the information to criminally investigate or prosecute any alcohol or drug abuse patient.[facility] HospitalIn the event this information is protected by the Federal Confidentiality of Alcohol and Drug Abuse Patient Records regulations: The Federal rules restrict any use of the information to criminally investigate or prosecute any alcohol or drug abuse patient.[facility] HospitalIn the event this information is protected by the Federal Confidentiality of Alcohol and Drug Abuse Patient Records regulations: The Federal rules restrict any use of the information to criminally investigate or prosecute any alcohol or drug abuse patient.[facility] HospitalIn the event this information is protected by the Federal Confidentiality of Alcohol and Drug Abuse Patient Records regulations: The Federal rules restrict any use of the information to criminally investigate or prosecute any alcohol or drug abuse patient.[facility] HospitalIn the event this information is protected by the Federal Confidentiality of Alcohol and Drug Abuse Patient Records regulations: The Federal rules restrict any use of the information to criminally investigate or prosecute any alcohol or drug abuse patient.[facility] HospitalIn the event this information is protected by the Federal Confidentiality of Alcohol and Drug Abuse Patient Records regulations: The Federal rules restrict any use of the information to criminally investigate or prosecute any alcohol or drug abuse patient.[facility] HospitalIn the event this information is protected by the Federal Confidentiality of Alcohol and Drug Abuse Patient Records regulations: The Federal rules restrict any use of the information to criminally investigate or prosecute any alcohol or drug abuse patient.[facility] Care Teams (unrecognized sec tion and content) Lining Finisher Relationship Specialty Start Date End Date Dylan VelardeROLF PCP - General Unspecified 02/06/16 Gerald Gilmore [address] [place] [address] Neurology 12/25/20 Lining Finisher Relationship Specialty Start Date End Date Dylan Velarde PLATFORM MATERIAL HANDLING SUPERVISOR PCP - General Unspecified 02/06/16 Gerald Gilmore [address] [place] [address] Neurology 12/25/20 Lining Finisher Relationship Specialty Start Date End Date Dylan VelardeROLF PCP - General Unspecified 02/06/16 Gerald Gilmore [address] [place] [address] Neurology 12/25/20 Lining Finisher Relationship Specialty Start Date End Date Dylan Velarde, PLATFORM MATERIAL HANDLING SUPERVISOR PCP - General Unspecified 02/06/16 Gerald Gilmore [address] [place] [address] Neurology 12/25/20 Lining Finisher Relationship Specialty Start Date End Date Dylan Velarde PLATFORM MATERIAL HANDLING SUPERVISOR PCP - General Unspecified 02/06/16 Gerald Gilmore [address] [place] [address] Neurology 12/25/20 Lining Finisher Relationship Specialty Start Date End Date Dylan Velarde PLATFORM MATERIAL HANDLING SUPERVISOR PCP - General Unspecified 02/06/16 Gerald Gilmore [address] [place] [address] Neurology 12/25/20 Lining Finisher Relationship Specialty Start Date End Date Dylan Velarde, PLATFORM MATERIAL HANDLING SUPERVISOR PCP - General Unspecified 02/06/16 Gerald Gilmore [address] [place] [address] Neurology 12/25/20 Lining Finisher Relationship Specialty Start Date End Date Dylan Velarde, PLATFORM MATERIAL HANDLING SUPERVISOR PCP - General Unspecified 02/06/16 Gerald Gilmore [address] [place] [address] Neurology 12/25/20 Lining Finisher Relationship Specialty Start Date End Date Dylan Velarde, PLATFORM MATERIAL HANDLING SUPERVISOR PCP - General Unspecified 02/06/16 [address]more [address] [place] [address] Neurology 12/25/20 Lining Finisher Relationship Specialty Start Date End Date Dylan Velarde, PLATFORM MATERIAL HANDLING SUPERVISOR PCP - General Unspecified 02/06/16 [address] Gil[address] [place] [address] Neurology 12/25/20 Lining Finisher Relationship Specialty Start Date End Date Dylan Velarde, PLATFORM MATERIAL HANDLING SUPERVISOR PCP - General Unspecified 02/06/16 [address] [place] [address] Neurology 12/25/20 Lining Finisher Relationship Specialty Start Date End Date Dylan Velarde, PLATFORM MATERIAL HANDLING SUPERVISOR PCP - General Unspecified 02/06/16 Gerald Gilmore [address] [place] [address] Neurology 12/25/20 Lining Finisher Relationship Specialty Start Date End Date Dylan Velarde, PLATFORM MATERIAL HANDLING SUPERVISOR PCP - General Unspecified 02/06/16 [address] Gilmore [address] [place] [address] Neurology 12/25/20 Lining Finisher Relationship Specialty Start Date End Date Dylan Velarde, PLATFORM MATERIAL HANDLING SUPERVISOR PCP - General Unspecified 02/06/16 Gerald Gilmore [address] [place] [address] Neurology 12/25/20 Team Status: Active Member Role Status Dates Dylan Velarde SHEET METAL WORK FURNACE INSTALLER, SHEET METAL WORK FURNACE INSTALLER-C Family Provider Active Dr. Donna Predomo MD Primary Care Provider Active Team Status: Inactive Member Role Status Dates Dr. Donna Perdomo MD Primary Care Provider Active Dr. Kojo Lewis , Attending Provider, Emergency Provider Active Team Status: Inactive Member Role Status Dates Dr. Donna Perdomo MD Primary Care Provider Active Dr. Jhon Priest , Attending Provider, Emergency P rovider Active Team Status: Inactive Member Role Status Dates Dr. Donna Perdomo MD Primary Care Provider Active Dr. Shauna Peck DO Emergency Provider Active Lining Finisher Relationship Specialty Start Date End Date Dylan Velarde, PLATFORM MATERIAL HANDLING SUPERVISOR PCP - General Unspecified 02/06/16 Gerald Gilmore [address] [facility] [place] [address] Neurology 12/25/20 Team Status: Inactive Member Role Status Dates Dr. Donna Perdomo MD Primary Care Provider Active Dr. Shauna Peck , Attending Provider, Emergency P rovider Active Team Status: Inactive Member Role Status Dates Dr. Donna Perdomo MD Primary Care Provider Active Dr. Lesly Posada MD Emergency Provider Active Lining Finisher Relationship Specialty Start Date End Date Donna Perdomo MD [address] [place] [address] [address] [place] [address] PCP - General Internal Medicine 07/30/22 Lining Finisher Relationship Specialty Start Date End Date Donna Perdomo MD [address] [place] [address] [address] [place] [address] PCP - General Internal Medicine 07/30/22 Lining Finisher Relationship Specialty Start Date End Date Donna Perdomo MD [address] [place] [address] Rd [address] [place] [address] PCP - General Internal Medicine 07/30/22 Team Status: Inactive Member Role Status Dates Dr. Donna Perdomo MD Primary Care Provider Active Dr. Lesly Posada MD Attending Provider, Emergency Provider Active Team Status: Inactive Member Role Status Dates Dr. Donna Perdomo MD Primary Care Provider Active PRETIBELLEI Attending Provider, Referring Provid er Active Team Status: Inactive Member Role Status Dates Dr. Donna Perdomo MD Primary Care Provider Active Dr. Sai Feldman DO Emergency Provider Active Team Status: Inactive Member Role Status Dates Dr. Donna Perdomo MD Primary Care Provider Active Dr. Sai Feldman DO Attending Provider, Emergency Provide r Active Team Status: Inactive Member Role Status Dates Dr. Donna Perdomo MD Primary Care Provider Active Dr. Brain Del Castillo MD Emergency Provider Active Lining Finisher Relationship Specialty Start Date End Date Donna Perdomo MD [address] [place], [place] [id number] PCP - General Internal Medicine 10/06/22 Lining Finisher Relationship Specialty Start Date End Date Dylan Velarde [address] [place] [address] PCP - General 06/30/18 07/29/22 Donna Perdomo MD [address] [place] [address] PCP - General Internal Medicine 07/30/22 Team Status: Inactive Member Role Status Dates Dr. Donna Perdomo MD Primary Care Provider Active Dr. Brain Del Castillo MD Attending Provider, Emergency Provi ember Active Lining Finisher Relationship Specialty Start Date End Date Donna Perdomo MD [address] [place], [place] [id number] PCP - General Internal Medicine 10/06/22 Lining Finisher Relationship Specialty Start Date End Date Donna Perdomo MD [address] [place] [address] [address] [place] [address] PCP - General Internal Medicine 10/06/22 Lining Finisher Relationship Specialty Start Date End Date Donna Perdomo MD [address] [place] [address] Rd [address] [place] [address] PCP - General Internal Medicine 10/06/22 Lining Finisher Relationship Specialty Start Date End Date Donna Perdomo MD [address] [place] [address] [address] [place] [address] PCP - General Internal Medicine 10/06/22 Team Status: Inactive Member Role Status Dates Dr. Donna Perdomo MD Primary Care Provider Active UNA RANKIN Attending Provider, Referring Provider A ctive Lining Finisher Relationship Specialty Start Date End Date Donna Perdomo MD [address] [place] [address] [address] [place] [address] PCP - General Internal Medicine 10/06/22 Lining Finisher Relationship Specialty Start Date End Date Donna Perdomo MD [address] [place] [address] [address] [place] [address] PCP - General Internal Medicine 07/30/22 Lining Finisher Relationship Specialty Start Date End Date Donna Perdomo MD [address] [place] [address] [address] [place] [address] PCP - General Internal Medicine 10/06/22 Lining Finisher Relationship Specialty Start Date End Date Donna Perdomo MD [address] [place] [address] [address] [place] [address] PCP - General Internal Medicine 10/06/22 Lining Finisher Relationship Specialty Start Date End Date Donna Perdomo MD [address] [facility] [address] [place] [address] PCP - General Internal Medicine 10/06/22 Lining Finisher Relationship Specialty Start Date End Date Mable Kassie, CNP PCP - General Unspecified 02/06/16 Gerald Gilmore MD Neurology 12/25/20 Lining Finisher Relationship Specialty Start Date End Date Dylan Velarde CNP PCP - General Unspecified 02/06/16 Gerald Gilmore MD Neurology 12/25/20 Lining Finisher Relationship Specialty Start Date End Date Dylan Velarde CNP PCP - General Unspecified 02/06/16 Gerald Gilmore MD Neurology 12/25/20 Lining Finisher Relationship Specialty Start Date End Date Dylan Velarde PLATFORM MATERIAL HANDLING SUPERVISOR PCP - General Unspecified 02/06/16 Gerald Gilmore MD Neurology 12/25/20 Lining Finisher Relationship Specialty Start Date End Date Dylan Velarde CNP PCP - General Unspecified 02/06/16 Gerald Gilmore MD Neurology 12/25/20 Lining Finisher Relationship Specialty Start Date End Date Donna Perdomo MD [address] [facility] [address] [place] [address] PCP - General Internal Medicine 10/06/22 Team Status: Active Member Role Status Dates Dr. Leander Patel MD Primary Care Provider Active Team Status: Inactive Member Role Status Dates Dr. Donna Perdomo MD Primary Care Provider Active Start: April 12, 2024 End: April 12, 2024 Dr. Kendall Encarnacion MD Attending Provider Active Start: April 12, 2024 End: April 12, 2024 Dr. Kendall Encarnacion MD Referring Provider Active Start: April 12, 2024 End: April 12, 2024 Team Status: Inactive Member Role Status Dates Dr. Donna Perdomo MD Primary Care Provider Active Start: April 17, 2024 End: April 17, 2024 Dr. Kendall Encarnacion MD Attending Provider Active Start: April 17, 2024 End: April 17, 2024 Dr. Kendall Encarnacion MD Referring Provider Active Start: April 17, 2024 End: April 17, 2024 Team Status: Inactive Member Role Status Dates Dr. Donna Perdomo MD Primary Care Provider Active Start: July 06, 2024 End: July 06, 2024 Dr. Donna Perdomo MD Referring Provider Active Start: July 06, 2024 End: July 06, 2024 Dr. Kendall Encarnacion MD Attending Provider Active Start: July 06, 2024 End: July 06, 2024 Team Status: Inactive Member Role Status Dates Dr. Donna Perdomo MD Primary Care Provider Active Start: July 18, 2024 End: July 18, 2024 Dr. Kendlal Encarnacion MD Attending Provider Active Start: July 18, 2024 End: July 18, 2024 Dr. Kendall Encarnacion MD Referring Provider Active Start: July 18, 2024 End: July 18, 2024 Team Status: Inactive Member Role Status Dates Dr. Donna Perdomo MD Referring Provider Active Start: July 26, 2024 End: July 26, 2024 Dr. Leander Patel MD Primary Care Provider Active Start: July 26, 2024 End: July 26, 2024 Dr. Leander Patel MD Attending Provider Active Start: July 26, 2024 End: July 26, 2024 Team Status: Inactive Member Role Status Dates Dr. Leander Patel MD Primary Care Provider Active Start: August 05, 2024 End: August 05, 2024 Dr. Kendall Encarnacion MD Attending Provider Active Start: August 05, 2024 End: August 05, 2024 Dr. Kendall Encarnacion MD Referring Provider Active Start: August 05, 2024 End: August 05, 2024 Team Status: Inactive Member Role Status Dates Dr. Leander Patel MD Referring Provider Active Start: August 16, 2024 End: August 16, 2024 BRANDON Dunaway Attending Provider Active Start: August 16, 2024 End: August 16, 2024 Team Status: Active Member Role Status Dates Dr. Leander Patel MD Primary Care Provider Active Start: August 16, 2024 BRANDON Dunaway Attending Provider Active Start: August 16, 2024 BRANDON Dunaway Referring Provider Active Start: August 16, 2024 Team Status: Inactive Member Role Status Dates Dr. Leander Patel MD Primary Care Provider Active Start: August 18, 2024 End: August 18, 2024 Dr. Jhon Priest DO Emergency Provider Active Start: August 18, 2024 End: August 18, 2024 Team Status: Inactive Member Role Status Dates Dr. Leander Patel MD Primary Care Provider Active Start: August 16, 2024 End: August 16, 2024 BRANDON Dunaway Attending Provider Active Start: August 16, 2024 End: August 16, 2024 BRANDON Dunaway Referring Provider Active Start: August 16, 2024 End: August 16, 2024 Team Status: Inactive Member Role Status Dates Dr. Leander Patel MD Primary Care Provider Active Start: August 18, 2024 End: August 18, 2024 Dr. Jhon Priest DO Attending Provider Active Start: August 18, 2024 End: August 18, 2024 Dr. Jhon Priest DO Emergency Provider Active Start: August 18, 2024 End: August 18, 2024 Team Status: Active Member Role Status Dates Dr. Leander Patel MD Primary Care Provider Active Start: August 21, 2024 BRANDON Dunaway Attending Provider Active Start: August 21, 2024 BRANDON Dunaway Referring Provider Active Start: August 21, 2024 Team Status: Active Member Role Status Dates Dr. Leander Patel MD Primary Care Provider Active Start: August 23, 2024 Dr. Kendall Encarnacion MD Attending Provider Active Start: August 23, 2024 BRANDON Dunaway Referring Provider Active Start: August 23, 2024 Team Status: Inactive Member Role Status Dates Dr. Leander Patel MD Primary Care Provider Active Start: August 21, 2024 End: August 21, 2024 BRANDON Dunaway Attending Provider Active Start: August 21, 2024 End: August 21, 2024 BRANDON Dunaway Referring Provider Active Start: August 21, 2024 End: August 21, 2024 Team Status: Inactive Member Role Status Dates Dr. Leander Patel MD Primary Care Provider Active Start: August 23, 2024 End: August 23, 2024 Dr. Kendall Encarnacion MD Attending Provider Active Start: August 23, 2024 End: August 23, 2024 BRANDON Dunaway Referring Provider Active Start: August 23, 2024 End: August 23, 2024 Team Status: Inactive Member Role Status Dates BRANDON Dunaway Attending Provider Active Start: September 14, 2024 End: September 14, 2024 Dr. Leander Patel MD Primary Care Provider Active Start: September 14, 2024 End: September 14, 2024 Dr. Leander Patel MD Referring Provider Active Start: September 14, 2024 End: September 14, 2024 Team Status: Inactive Member Role Status Dates Dr. Leander Patel MD Primary Care Provider Active Start: October 03, 2024 End: October 03, 2024 BRANDON Dunaway Attending Provider Active Start: October 03, 2024 End: October 03, 2024 BRANDON Dunaway Referring Provider Active Start: October 03, 2024 End: October 03, 2024 Team Status: Inactive Member Role Status Dates Dr. Leander Patel MD Primary Care Provider Active Start: October 06, 2024 End: October 06, 2024 Dr. Kendall Encarnacion MD Other Provider Active S tart: October 06, 2024 End: October 06, 2024 Dr. Kaiden Rausch DO Emergency Provider Active Start: October 06, 2024 End: October 06, 2024 Lining Finisher Relationship Specialty Start Date End Date Oliviajeffreyheather Kassie, CNP PCP - General Unspecified 02/06/16 Gerald Gilmore MD Neurology 12/25/20 Team Status: Inactive Member Role Status Dates Dr. Leander Patel MD Primary Care Provider Active Start: October 06, 2024 End: October 06, 2024 Dr. Kendall Encarnacion MD Other Provider Active S tart: October 06, 2024 End: October 06, 2024 Dr. Kaiden Rausch DO Attending Provider Active Start: October 06, 2024 End: October 06, 2024 Dr. Kaiden Rausch DO Emergency Provider Active Start: October 06, 2024 End: October 06, 2024 Team Status: Inactive Member Role Status Dates Dr. Leander Patel MD Primary Care Provider Active Start: October 13, 2024 End: October 13, 2024 Dr. Leander Patel MD Referring Provider Active Start: October 13, 2024 End: October 13, 2024 BECCA Cline Attending Provider Active Start: October 13, 2024 End: October 13, 2024 Team Status: Active Member Role Status Dates Dr. Leander Patel MD Primary Care Provider Active Start: October 13, 2024 Louise Torrez NP-C Attending Provider Active Start: October 13, 2024 Louise Ungerer , SHEET METAL WORK FURNACE INSTALLER-C Referring Provider Active Start: October 13, 2024 Team Status: Inactive Member Role Status Dates Dr. Leander Patel MD Primary Care Provider Active Start: October 13, 2024 End: October 13, 2024 Louise Torrez NP-C Attending Provider Active Start: October 13, 2024 End: October 13, 2024 Louise Torrez NP-C Referring Provider Active Start: October 13, 2024 End: October 13, 2024 Team Status: Inactive Member Role/Relationship Status Dates Dr. Donna Perdomo MD Primary Care Provider Active Start: July 06, 2024 End: July 06, 2024 Dr. Donna Perdomo MD Referring Provider Active Start: July 06, 2024 End: July 06, 2024 Dr. Kendall Encarnacion MD Attending Provider Active Start: July 06, 2024 End: July 06, 2024 Team Status: Inactive Member Role/Relationship Status Dates Dr. Donna Perdomo MD Primary Care Provider Active Start: July 18, 2024 End: July 18, 2024 Dr. Kendall Encarnacion MD Attending Provider Active Start: July 18, 2024 End: July 18, 2024 Dr. Kendall Encarnacion MD Referring Provider Active Start: July 18, 2024 End: July 18, 2024 Team Status: Inactive Member Role/Relationship Status Dates Dr. Donna Perdomo MD Referring Provider Active Start: July 26, 2024 End: July 26, 2024 Dr. Leander Patel MD Primary Care Provider Active Start: July 26, 2024 End: July 26, 2024 Dr. Leander Patel MD Attending Provider Active Start: July 26, 2024 End: July 26, 2024 Team Status: Inactive Member Role/Relationship Status Dates Dr. Leander Patel MD Primary Care Provider Active Start: August 05, 2024 End: August 05, 2024 Dr. Kendall Encarnacion MD Attending Provider Active Start: August 05, 2024 End: August 05, 2024 Dr. Kendall Encarnacion MD Referring Provider Active Start: August 05, 2024 End: August 05, 2024 Team Status: Inactive Member Role/Relationship Status Dates Dr. Leander Patel MD Referring Provider Active Start: August 16, 2024 End: August 16, 2024 BRANDON Dunaway Attending Provider Active Start: August 16, 2024 End: August 16, 2024 Team Status: Inactive Member Role/Relationship Status Dates Dr. Leander Patel MD Primary Care Provider Active Start: August 16, 2024 End: August 16, 2024 BRANDON Dunaway Attending Provider Active Start: August 16, 2024 End: August 16, 2024 BRANDON Dunaway Referring Provider Active Start: August 16, 2024 End: August 16, 2024 Team Status: Inactive Member Role/Relationship Status Dates Dr. Leander Patel MD Primary Care Provider Active Start: August 18, 2024 End: August 18, 2024 Dr. Jhon Priest DO Attending Provider Active Start: August 18, 2024 End: August 18, 2024 Dr. Jhon Priest DO Emergency Provider Active Start: August 18, 2024 End: August 18, 2024 Team Status: Inactive Member Role/Relationship Status Dates Dr. Leander Patel MD Primary Care Provider Active Start: August 21, 2024 End: August 21, 2024 BRANDON Dunaway Attending Provider Active Start: August 21, 2024 End: August 21, 2024 BRANDON Dunaway Referring Provider Active Start: August 21, 2024 End: August 21, 2024 Team Status: Inactive Member Role/Relationship Status Dates Dr. Leander Patel MD Primary Care Provider Active Start: August 23, 2024 End: August 23, 2024 Dr. Kendall Encarnacion MD Attending Provider Active Start: August 23, 2024 End: August 23, 2024 BRANDON Dunaway Referring Provider Active Start: August 23, 2024 End: August 23, 2024 Team Status: Inactive Member Role/Relationship Status Dates BRANDON Dunaway Attending Provider Active Start: September 14, 2024 End: September 14, 2024 Dr. Leander aPtel MD Primary Care Provider Active Start: September 14, 2024 End: September 14, 2024 Dr. Leander Patel MD Referring Provider Active Start: September 14, 2024 End: September 14, 2024 Team Status: Inactive Member Role/Relationship Status Dates Dr. Leander Patel MD Primary Care Provider Active Start: October 03, 2024 End: October 03, 2024 BRANDON Dunaway Attending Provider Active Start: October 03, 2024 End: October 03, 2024 BRANDON Dunaway Referring Provider Active Start: October 03, 2024 End: October 03, 2024 Team Status: Inactive Member Role/Relationship Status Dates Dr. Leander Patel MD Primary Care Provider Active Start: October 06, 2024 End: October 06, 2024 Dr. Kendall Encarnacion MD Other Provider Active S tart: October 06, 2024 End: October 06, 2024 Dr. Kaiden Rausch DO Attending Provider Active Start: October 06, 2024 End: October 06, 2024 Dr. Kaiden Rausch DO Emergency Provider Active Start: October 06, 2024 End: October 06, 2024 Team Status: Inactive Member Role/Relationship Status Dates Dr. Leander Patel MD Primary Care Provider Active Start: October 13, 2024 End: October 13, 2024 Dr. Leander Patel MD Referring Provider Active Start: October 13, 2024 End: October 13, 2024 LUCY ClineC Attending Provider Active Start: October 13, 2024 End: October 13, 2024 Team Status: Inactive Member Role/Relationship Status Dates Dr. Leander Patel MD Primary Care Provider Active Start: October 13, 2024 End: October 13, 2024 LUCY ClineC Attending Provider Active Start: October 13, 2024 End: October 13, 2024 BECCA Cline Referring Provider Active Start: October 13, 2024 End: October 13, 2024 Team Status: Inactive Member Role/Relationship Status Dates Dr. Donna Perdomo MD Referring Provider Active Start: November 02, 2024 End: November 02, 2024 Dr. Leander Patel MD Attending Provider Active Start: November 02, 2024 End: November 02, 2024 Goals (unrecognized section and content) Goals may be documented in a n alternate sectionGoals may be documented in an alternate sectionGoals may be documented in an alternate sectionGoals may be documented in an alternate sectionGoals may be documented in an alternate sectionGoals may be documented in an alternate sectionGoals may be documented in an alternate sectionGoals may be documented in an alternate sectionGoals may be documented in an alternate sectionGoals may be documented in an alternate sectionGoals may be documented in an alternate sectionGoals may be documented in an alternate sectionGoals may be documented in an alternate sectionGoals may be documented in an alternate sectionGoals may be documented in an alternate sectionGoals may be documented in an alternate sectionGoals may be documented in an alternate sectionGoals may be documented in an alternate sectionGoals may be documented in an alternate section Scheduled Active and Recently Administ ered Medications (unrecognized section and content) Medication Order 08/05/2022 08/06/2022 08/07/2022 acetaminophen (Tylenol) tablet 1,000 mg 1,000 mg, Oral, 3 times daily, First dose on Wed08/05/22 at 0915, Maximum dose of acetaminophen is 4000 mg from all sources in 24 hours. 0925 (Given - Provider: Estella Garcia RN)1429 (Given - Provider: Estella Garcia RN) 0022 (Given - Provider: Jerrica Torres RN)0807 (Given - Provider: Alexis Melo RN)1349 (Given - Provider: Alexis Melo RN)2107 (Given - Provider: Georgia Shafer RN) 1103 (Given - Provider: Cheryl Bales RN)1400 (Given - Provider: Cheryl Bales RN) albumin human 5 % IV solution 1,900 mL (COMPLETED) 1,900 mL, IntraVENous, Once in dialysis, Starting on Wed08/05/22 at 0758, For 1 dose, Infusion rate depends on indication and clinical situation. In emergencies, may administer as rapidly as necessary to improve clinical condition. After initial volume replacement: 5%: Do not exceed 2 to 4 mL/minute in patients with normal plasma volume; 5 to 10 mL/minute in patients with hypoproteinemia 25%: Do not exceed 1 mL/minute in patients with normal plasma volume; 2 to 3 mL/minute in patients with hypoproteinemia 1038 (New Bag - Provider: Narcisa Rodas RN)1100 (Stopped - Provider: Estella Garcia RN) albumin human 5 % IV solution 2,000 mL (COMPLETED) 2,000 mL, IntraVENous, Once, On Wed08/07/22 at 0730, For 1 dose, Infusion rate depends on indication and clinical situation. In emergencies, may administer as rapidly as necessary to improve clinical condition. After initial volume replacement: 5%: Do not exceed 2 to 4 mL/minute in patients with normal plasma volume; 5 to 10 mL/minute in patients with hypoproteinemia 25%: Do not exceed 1 mL/minute in patients with normal plasma volume; 2 to 3 mL/minute in patients with hypoproteinemia 0940 (New Bag - Provider: Ilad Duffy RN)1056 (Stopped - Provider: Ilda Duffy RN) apixaban (Eliquis) tablet 5 mg 5 mg, Oral, 2 times daily, First dose on Taylor 07/30/22 at 2100, Anticoagulant 0823 (Given - Provider: Estella Garcia RN)2212 (Given - Provider: Jerrica Torres RN) 0807 (Given - Provider: Alexis Melo RN)210 (Given - Provider: Georgia Shafer, VANESSA) 1103 (Given - Provider: Cheryl Bales RN) calcium gluconate 1,900 mg in sodium chloride 0.9 % 100 mL IVPB (COMPLETED) 1,900 mg, IntraVENous, Administer over 1 Hours, Once in dialysis, Starting on Wed08/05/22 at 0759, For 1 dose 1038 (New Bag - Provider: Narcisa Rodas RN)1138 (Stopped - Provider: Estella Garcia RN) calcium gluconate 2000 mg in 100 mL IVPB premix (COMPLETED) 2,000 mg, IntraVENous, Administer over 2 Hours, Once, On Wed08/07/22 at 0700, For 1 dose, For dialysis administration premix bag 0940 (New Bag - Provider: Ilda Duffy RN)1056 (Stopped - Provider: Ilda Duffy RN) escitalopram (Lexapro) tablet 10 mg 10 mg, Oral, Daily, First dose on Taylor 07/30/22 at 1810 2212 (Given - Provider: Jerrica Torres RN) 210 (Given - Provider: Georgia Shafer, VANESSA) heparin flush injection 100 Units 100 Units, IntraCATHeter, Every 12 hours, First dose on Wed07/31/22 at 0810, Line Care. Use 10 mL or larger syringe. 0823 (Given - Provider: Estella Garcia RN)221 (Given - Provider: Jerrica Torres RN) 08 (Given - Provider: Alexis Melo, RN)2107 (Given - Provider: Georgia Shafer RN) 110 (Given - Provider: Cheryl Bales RN)142 (Given - Provider: Cheryl Bales RN) lamoTRIgine (LaMICtal) tablet 100 mg 100 mg, Oral, Daily, First dose on Taylor 07/30/22 at 1810 0823 (Given - Provider: Estella Garcia RN) 08 (Given - Provider: Alexis Melo RN) 110 (Given - Provider: Cheryl Bales RN) lamoTRIgine (LaMICtal) tablet 250 mg 250 mg, Oral, Nightly, First dose (after last modification) on Taylor 07/30/22 at 2100 221 (Given - Provider: Jerrica Torres RN) 2109 (Given - Provider: Georgia Shafer RN) OXcarbazepine (Trileptal) tablet 150 mg 150 mg, Oral, Daily, First dose on Taylor 07/30/22 at 1810 221 (Given - Provider: Jerrica Torres RN) 2109 (Given - Provider: Georgia Shafer RN) sodium chloride 0.9% (NS) flush 10 mL 10 mL, IntraCATHeter, Every 12 hours, First dose on Wed07/31/22 at 0810, Line Care. Use 10 mL or larger syringe. 0823 (Given - Provider: Estella Garcia RN)221 (Given - Provider: Jerrica Torres RN) 08 (Not Given - Provider: Alexis Melo RN - Reason: Other)2108 (Given - Provider: Georgia Shafer RN) 110 (Given - Provider: Cheryl Bales RN)1423 (Given - Provider: Cheryl Bales RN) sodium chloride 0.9% (NS) flush 5-40 mL 5-40 mL, IntraVENous, Every 12 hours, First dose on Taylor 07/30/22 at 1810, For Line Patency: Peripheral IV = 5 mL; Midline or Central Line = 10 mL/lumen. If following IV push medication, administer flush at same rate as the IV push. Flush volume is determined by type of infusion therapy being given. For non-viscous solutions use: Peripheral IV = 5 mL Midline or Central Line = 10 mL/lumen For viscous solutions (i.e. blood components, parenteral nutrition, contrast media, or after obtaining blood sample) use: Peripheral IV = 10 mL Midline or Central Line = 20 mL/lumen 0545 (Given - Provider: Shiela Kimble, RN)1400 (Given - Provider: Estella Garcia, VANESSA) 0703 (Given - Provider: Jerrica Torres RN)1810 (Not Given - Provider: Alexis Melo RN - Reason: Other) 0617 (Given - Provider: Georgia Shafer, VANESSA)1810 (Canceled Entry - Provider: Automatic Discharge Provider - Comment: Automatically canceled at discontinue of medication order) zonisamide (Zonegran) capsule 200 mg 200 mg, Oral, Daily, First dose on Taylor 07/30/22 at 1810 0823 (Given - Provider: Estella Garcia RN) 0808 (Given - Provider: Alexis Melo, VANESSA) 1102 (Given - Provider: Cheryl Bales RN) zonisamide (Zonegran) capsule 300 mg 300 mg, Oral, Nightly, First dose on Wed07/31/22 at 2100 2212 (Given - Provider: Jerrica Torres RN) 2111 (Given - Provider: Georgia Shafer, VANESSA) Continuous Medication Order 08/05/2022 08/06/2022 08/07/2022 citrate dextrose (ACD-A) infusion (CANCELED) 100-200 mL/hr, CRRT, Continuous, Starting on Wed08/03/22 at 0900, ACD-A Titration Protocol (Anticoagulant Citrate Dextrose) Adjust citrate (ACD-A) flow rate according to POST-filter ionized calcium (in mmol/L): POST-FILTER iCa (in mmol/L) --- Citrate Dose Adjustment iCa below 0.2 --- decrease ACD-A by 10 mL/hr and call renal MD iCa 0.2 - 0.24 --- decrease ACD-A by 5 mL/hr iCa 0.25 - 0.3 --- at goal; no change in ACD-A dose iCa 0.31 - 0.4 --- increase ACD-A by 5 mL/hr iCa 0.41 - 0.45 --- increase ACD-A by 10 mL/hr iCa above 0.45 --- increase ACD-A by 15 mL/hr and call renal MD Check POST-filter ionized calcium (reported in mmol/L) at initiation of CRRT, then every 4 hours x 24 hours, then every 8 hours x 24 hours, then every 12 hours. Hang prefilter for regional anticoagulation. Titrate citrate per protocol based on post-filter ionized calcium levels. 1037 (New Bag - Provider: Narcisa Rodas RN) citrate dextrose (ACD-A) infusion 100-200 mL/hr, IntraCATHeter, Continuous, Starting on Wed08/07/22 at 0700, ACD-A Titration Protocol (Anticoagulant Citrate Dextrose) Adjust citrate (ACD-A) flow rate according to POST-filter ionized calcium (in mmol/L): POST-FILTER iCa (in mmol/L) --- Citrate Dose Adjustment iCa below 0.2 --- decrease ACD-A by 10 mL/hr and call renal MD iCa 0.2 - 0.24 --- decrease ACD-A by 5 mL/hr iCa 0.25 - 0.3 --- at goal; no change in ACD-A dose iCa 0.31 - 0.4 --- increase ACD-A by 5 mL/hr iCa 0.41 - 0.45 --- increase ACD-A by 10 mL/hr iCa above 0.45 --- increase ACD-A by 15 mL/hr and call renal MD Check POST-filter ionized calcium (reported in mmol/L) at initiation of CRRT, then every 4 hours x 24 hours, then every 8 hours x 24 hours, then every 12 hours. Kranthi prefilter for regional anticoagulation. Titrate citrate per protocol based on post-filter ionized calcium levels. 0700 (Canceled Entry - Provider: Automatic Discharge Provider - Comment: Automatically canceled at discontinue of medication order) PRN Medication Order 08/05/2022 08/06/2022 08/07/2022 acetaminophen (Tylenol) suppository 650 mg(Linked Group 1) 650 mg, Rectal, Every 6 hours PRN, mild pain (1-3), fever, For temp greater than 100.4 F (38 C), Starting on Taylor 07/30/22 at 1806, Administer if oral route cannot be used. Maximum dose of acetaminophen is 4000 mg from all sources in 24 hours. acetaminophen (Tylenol) tablet 650 mg(Linked Group 1) 650 mg, Oral, Every 6 hours PRN, mild pain (1-3), fever, For temp greater than 100.4 F (38 C), Starting on Taylor 07/30/22 at 1806, Maximum dose of acetaminophen is 4000 mg from all sources in 24 hours. heparin flush injection 100 Units 100 Units, IntraCATHeter, PRN, line care, after infusions or after blood draws, Starting on Wed07/31/22 at 0805, Use 10 mL or larger syringe. heparin injection 2,100 Units 2,100 Units, IntraCATHeter, As needed, line care, Starting on Wed07/30/22 at 1734 1123 (Given - Provider: Narcisa Rodas RN) heparin injection 2,200 Units 2,200 Units, IntraCATHeter, As needed, line care, Starting on Taylor 07/30/22 at 1735 1124 (Given - Provider: Narcisa Rodas RN) hydrOXYzine pamoate (Vistaril) capsule 25 mg 25 mg, Oral, Every 6 hours PRN, anxiety, 2nd line after lorazepam, Starting on Wed08/02/22 at 1233 2107 (Given - Provider: Georgia Shafer RN) ibuprofen tablet 600 mg 600 mg, Oral, Every 6 hours PRN, moderate pain (4-6), severe pain (7-10), Starting on Wed08/05/22 at 0906 2212 (Given - Provider: Jerrica Torres RN) 0655 (Given - Provider: Jerrica Torres RN) ketorolac (Toradol) injection 15 mg (CANCELED) 15 mg, IntraVENous, Every 6 hours PRN, severe pain (7-10), moderate pain (4-6), Starting on Wed07/31/22 at 0807, For 5 days 0550 (Given - Provider: Shiela Kimble RN) LORazepam (Ativan) tablet 1 mg 1 mg, Oral, Every 12 hours PRN, anxiety, seizures, Starting on Taylor 07/30/22 at 1805 0925 (Given - Provider: Estella Garcia, VANESSA) 0024 (Given - Provider: Jerrica Torres, VANESSA)1348 (Given - Provider: Alexis Melo, VANESSA) ondansetron (Zofran) injection 4 mg(Linked Group 2) 4 mg, IntraVENous, Every 6 hours PRN, nausea, vomiting, Starting on Taylor 07/30/22 at 1806, 1st Line. Give IV if patient is unable to take orally. If inadequate response within 60 minutes, proceed to next-line agent or contact provider if no further options ordered. ondansetron ODT (Zofran-ODT) disintegrating tablet 4 mg(Linked Group 2) 4 mg, Oral, Every 8 hours PRN, nausea, vomiting, Starting on Taylor 07/30/22 at 1806, 1st Line. If inadequate response within 60 minutes, proceed to next-line agent or contact provider if no further options ordered. Patient should allow tablet to dissolve on tongue. Do not remove from blister pack until just before administering. polyethylene glycol (PEG) 3350 (Miralax) packet 17 g 17 g, Oral, Daily PRN, constipation, Starting on Wed07/30/22 at 1806, 1st line for treatment of constipation - give scheduled if no bowel movement in past 24 hours. sennosides (Senokot) tablet 17.2 mg 17.2 mg (2 tablet), Oral, 2 times daily PRN, constipation, Starting on Wed08/05/22 at 0915, Use as second line sodium chloride 0.9 % infusion 5-250 mL/hr, IntraVENous, PRN, if patient receiving piggyback infusions and maintenance fluids are not ordered OR KVO fluids to protect IV site / prevent frequent line interruptions / long duration, Starting on Wed07/30/22 at 1806, For piggyback infusion, administer at same rate as piggyback for a total of 25 mL. Enter 25 mL into dose field and piggyback rate into rate field of order. If piggyback is infusing at a rate less than 100 mL/hr, enter 25 mL into dose field and 100 mL/hr into rate field of order. For KVO fluids, enter rate of 20 mL/hr or less into rate field of order. sodium chloride 0.9% (NS) flush 10 mL 10 mL, IntraCATHeter, PRN, line care, before and after blood draws, infusion or medication administration, Starting on Wed07/31/22 at 0805, Use 10 mL or larger syringe. sodium chloride 0.9% (NS) flush 5-40 mL 5-40 mL, IntraVENous, PRN, line care, After every IV line use, Starting on Wed07/30/22 at 1806, For Line Patency: Peripheral IV = 5 mL; Midline or Central Line = 10 mL/lumen. If following IV push medication, administer flush at same rate as the IV push. Flush volume is determined by type of infusion therapy being given. For non-viscous solutions use: Peripheral IV = 5 mL Midline or Central Line = 10 mL/lumen For viscous solutions (i.e. blood components, parenteral nutrition, contrast media, or after obtaining blood sample) use: Peripheral IV = 10 mL Midline or Central Line = 20 mL/lumen No Frequency Medication Order 08/05/2022 08/06/2022 08/07/2022 citrate dextrose (ACD-A) 0.73-2.45-2.2 GM/100ML infusion - Pyxis ADS Override Pull (COMPLETED) Starting on Wed08/07/22 at 0821, For 1 dose, Ilda Duffy: cabinet override Hang prefilter for regional anticoagulation. Titrate citrate per protocol based on post-filter ionized calcium levels. 0940 (Given - Provid er: Ilda Duffy RN) Linked Groups Order Group 1: acetaminophen (Tylenol) tablet 650 mgJump to med 650 mg, Oral, Every 6 hours PRN, mild pain (1-3), fever, For temp greater than 100.4 F (38 C), Starting on Taylor 07/30/22 at 1806
Maximum dose of acetaminophen is 4000 mg from all sources in 24 hours.
Or acetaminophen (Tylenol) suppository 650 mgJump to med 650 mg, Rectal, Every 6 hours PRN, mild pain (1-3), fever, For temp greater than 100.4 F (38 C), Starting on Wed07/30/22 at 1806
Administer if oral route cannot be used. Maximum dose of acetaminophen is 4000 mg from all sources in 24 hours.
Group 2: ondansetron ODT (Zofran-ODT) disintegrating tablet 4 mgJump to med 4 mg, Oral, Every 8 hours PRN, nausea, vomiting, Starting on Taylor 07/30/22 at 1806
1st Line. If inadequate response within 60 minutes, proceed to next-line agent or contact provider if no further options ordered. Patient should allow tablet to dissolve on tongue. Do not remove from blister pack until just before administering.
Or ondansetron (Zofran) injection 4 mgJump to med 4 mg, IntraVENous, Every 6 hours PRN, nausea, vomiting, Starting on Taylor 07/30/22 at 1806
1st Line. Give IV if patient is unable to take orally. If inadequate response within 60 minutes, proceed to next-line agent or contact provider if no further options ordered.
Scheduled Medication Order 10/31/2022 11/01/2022 11/02/2022 apixaban (ELIQUIS) tablet 5 mg 5 mg, Oral, 2 TIMES DAILY, First dose on Wed10/30/22 at 0900, Until Discontinued, Due to the rapid onset of action of apixaban, no overlap is needed with other anticoagulants (e.g. enoxaparin, heparin)., Indications: history of clots in port 0944 (Given - Provider: Gina Rodríguez RN)1734 (Given - Provider: Gina Rodríguez RN) 1042 (Given - Provider: Gina Rodríguez RN)1818 (Given - Provider: Gina Rodríguez, VANESSA) 0817 (Given - Provider: Juvencio Modi, RN) cholecalciferol (VITAMIN D3) tablet 2,000 Units 2,000 Units, Oral, DAILY, First dose on Wed10/31/22 at 1130, Until Discontinued 1255 (Given - Provider: Gina Rodríguez RN) 1035 (Given - Provider: Gina Rodríguez RN) 0817 (Given - Provider: Juvencio Modi, RN) Escitalopram (LEXAPRO) tablet 10 mg 10 mg, Oral, DAILY AT BEDTIME, First dose on Wed10/30/22 at 2100, Until Discontinued 1935 (Given - Provider: Jennifer Barry RN) 2003 (Given - Provider: Juanito Mirza, RN) Folic acid (FOLVITE) tablet 1 mg 1 mg, Oral, DAILY, First dose on Wed10/31/22 at 0900, Until Discontinued 943 (Given - Provider: Gina Rodríguez RN) 103 (Given - Provider: Gina Rodríguez RN) 0816 (Given - Provider: Juvencio Modi, VANESSA) lamoTRIgine (laMICtal) tablet 150 mg 150 mg, Oral, DAILY, First dose (after last modification) on Wed10/31/22 at 0900, Until Discontinued 943 (Given - Provider: Gina Rodríguez RN) 1034 (Given - Provider: Gina Rodríguez RN) 0816 (Given - Provider: Juvencio Modi RN) lamoTRIgine (laMICtal) tablet 250 mg 250 mg, Oral, DAILY AT BEDTIME, First dose on Wed10/30/22 at 0130, Until Discontinued 1933 (Given - Provider: Jennifer Barry RN) 2003 (Given - Provider: Juanito Mirza, VANESSA) OXcarbazepine (TRILEPTAL) tablet 150 mg 150 mg, Oral, DAILY AT BEDTIME, First dose on Wed10/30/22 at 2100, Until Discontinued, Swallow tablet whole; do not crush, split or chew. Contact pharmacy if alternate route or dose is needed. 1934 (Given - Provider: Jennifer Barry RN) 2004 (Given - Provider: Juanito Mirza, VANESSA) Senna (SENOKOT) tablet 8.6 mg 8.6 mg, Oral, DAILY, First dose on Wed11/02/22 at 0900, Until Discontinued 816 (Given - Provider: Juvencio Modi, VANESSA) zonisamide (ZONEGRAN) capsule 200 mg(Linked Group 1) 200 mg, Oral, DAILY, First dose on Wed10/30/22 at 0900, Until Discontinued, Contact pharmacy to crush/open due to hazardous classification. Powder supplied by pharmacy may be placed in water, apple juice or applesauce and administered. 45 (Given - Provider: Gina Rodríguez RN) 103 (Given - Provider: Gina Rodríguez RN) 0817 (Given - Provider: Juvencio Modi RN) zonisamide (ZONEGRAN) capsule 300 mg(Linked Group 1) 300 mg, Oral, DAILY AT BEDTIME, First dose on Wed10/30/22 at 0200, Until Discontinued, Contact pharmacy to crush/open due to hazardous classification. Powder supplied by pharmacy may be placed in water, apple juice or applesauce and administered. 1934 (Given - Provider: Jennifer Barry RN) 2004 (Given - Provider: Juanito Mirza, RN) PRN Medication Order 10/31/2022 11/01/2022 11/02/2022 Acetaminophen (TYLENOL) tablet 650 mg 650 mg, Oral, EVERY 6 HOURS NEEDED, Starting on Taylor 10/29/22 at 2244, Until Wed11/02/22 at 1614, Mild Pain, Oral temp > 100.4 F, Maximum dose of acetaminophen is 4000 mg from all sources in 24 hours. 0548 (Given - Provider: Jennifer Barry RN)0951 (Given - Provider: Gina Rodríguez RN)1934 (Given - Provider: Jennifer Barry RN) 1043 (Given - Provider: Gina Rodríguez RN) Heparin 100 units/mL flush injection 5 mL 5 mL, Intravenous, ONCE DIRECTED, 1 dose, Starting on Wed11/02/22 at 1345, Until Wed11/02/22 at 1614, Flush, De-access port LORazepam (ATIVAN) tablet 0.5 mg 0.5 mg, Oral, 3 TIMES DAILY NEEDED, Starting on Wed10/30/22 at 0448, Until Wed11/02/22 at 1614, Anxiety 1934 (Given - Provider: Jennifer Barry RN) 2004 (Given - Provider: Juanito Mirza, VANESSA) Melatonin tablet 6 mg 6 mg, Oral, DAILY AT BEDTIME NEEDED, Starting on Taylor 10/29/22 at 2244, Until Wed11/02/22 at 1614, Insomnia 2004 (Given - Provider: Juanito Mirza, VANESSA) Ondansetron (ZOFRAN) tablet 4 mg(Linked Group 2) 4 mg, Oral, EVERY 6 HOURS NEEDED, Starting on Taylor 10/29/22 at 2244, Until Wed11/02/22 at 1614, Nausea / Vomiting, 1st line for Nausea/Vomiting Ondansetron 4mg/2ml (ZOFRAN) injection 4 mg(Linked Group 2) 4 mg, Intravenous, EVERY 6 HOURS NEEDED, Starting on Taylor 10/29/22 at 2244, Until Wed11/02/22 at 1614, Nausea / Vomiting, 1st line for Nausea/Vomiting Polyethylene glycol (MIRALAX) packet 17 g 17 g, Oral, DAILY NEEDED, Starting on Taylor 10/29/22 at 2244, Until Wed11/02/22 at 1614, Constipation 1st Line 0958 (Given - Provider: Gina Rodríguez, VANESSA) Sodium chloride 0.9% IV solution 250 mL Intravenous, at 20 mL/hr, NEEDED, Starting on Taylor 10/29/22 at 2242, Until Wed11/02/22 at 1614, Carrier Fluid - See Admin. Inst, 250mL 0.9NS to be used as carrier fluid for intermittent small volume or piggyback medication administration as needed. Infusion rate of the carrier fluid should be set at 20 mL/hr unless the rate as the intermittent medication is less than 20 mL/hr. For intermittent medications with a rate less than 20 mL/hr set the carrier fluid at that rate of the intermittent or piggy back medication. Linked Groups Order Group 1: zonisamide (ZONEGRAN) capsule 200 mgJump to med 200 mg, Oral, DAILY, First dose on Wed10/30/22 at 0900, Until Discontinued
Contact pharmacy to crush/open due to hazardous classification. Powder supplied by pharmacy may be placed in water, apple juice or applesauce and administered. & nbsp;
And zonisamide (ZONEGRAN) capsule 300 mgJump to med 300 mg, Oral, DAILY AT BEDTIME, First dose on Wed10/30/22 at 0200, Until Discontinued
Contact pharmacy to crush/open due to hazardous classification. Powder supplied by pharmacy may be placed in water, apple juice or applesauce and administered. & nbsp;
Group 2: Ondansetron 4mg/2ml (ZOFRAN) injection 4 mgJump to med 4 mg, Intravenous, EVERY 6 HOURS NEEDED, Starting on Taylor 10/29/22 at 2244, Until 11/02/22 at 1614, Nausea / Vomiting, 1st line for Nausea/Vomiting Or Ondansetron (ZOFRAN) tablet 4 mgJump to med 4 mg, Oral, EVERY 6 HOURS NEEDED, Starting on Taylor 10/29/22 at 2244, Until 11/02/22 at 1614, Nausea / Vomiting, 1st line for Nausea/Vomiting Scheduled Medication Order 10/31/2022 11/01/2022 11/02/2022 apixaban (ELIQUIS) tablet 5 mg 5 mg, Oral, 2 TIMES DAILY, First dose on Wed10/30/22 at 0900, Until Discontinued, Due to the rapid onset of action of apixaban, no overlap is needed with other anticoagulants (e.g. enoxaparin, heparin)., Indications: history of clots in port 0944 (Given - Provider: Gina Rodríguez RN)1734 (Given - Provider: Gina Rodríguez RN) 1042 (Given - Provider: Gina Rodríguez RN)1818 (Given - Provider: Gina Rodríguez RN) 0817 (Given - Provider: Juvencio Modi, VANESSA) cholecalciferol (VITAMIN D3) tablet 2,000 Units 2,000 Units, Oral, DAILY, First dose on 10/31/22 at 1130, Until Discontinued 1255 (Given - Provider: Gina Rodríguez RN) 1035 (Given - Provider: Gina Rodírguez RN) 0817 (Given - Provider: Juvencio Modi, RN) Escitalopram (LEXAPRO) tablet 10 mg 10 mg, Oral, DAILY AT BEDTIME, First dose on Wed10/30/22 at 2100, Until Discontinued 193 (Given - Provider: Jennifer Barry RN) 2003 (Given - Provider: Juanito Mirza RN) Folic acid (FOLVITE) tablet 1 mg 1 mg, Oral, DAILY, First dose on 10/31/22 at 0900, Until Discontinued 0944 (Given - Provider: Gina Rodríguez RN) 103 (Given - Provider: Gina Rodríguez RN) 0816 (Given - Provider: Juvencio Modi, RN) lamoTRIgine (laMICtal) tablet 150 mg 150 mg, Oral, DAILY, First dose (after last modification) on Wed10/31/22 at 0900, Until Discontinued 943 (Given - Provider: Gina Rodríguez RN) 103 (Given - Provider: Gina Rodríguez RN) 0816 (Given - Provider: Juvencio Modi RN) lamoTRIgine (laMICtal) tablet 250 mg 250 mg, Oral, DAILY AT BEDTIME, First dose on Wed10/30/22 at 0130, Until Discontinued 1933 (Given - Provider: Jennifer Barry RN) 2003 (Given - Provider: Juanito Mirza, VANESSA) OXcarbazepine (TRILEPTAL) tablet 150 mg 150 mg, Oral, DAILY AT BEDTIME, First dose on Wed10/30/22 at 2100, Until Discontinued, Swallow tablet whole; do not crush, split or chew. Contact pharmacy if alternate route or dose is needed. 1934 (Given - Provider: Jennifer Barry RN) 2004 (Given - Provider: Juanito Mirza, VANESSA) Senna (SENOKOT) tablet 8.6 mg 8.6 mg, Oral, DAILY, First dose on Wed11/02/22 at 0900, Until Discontinued 816 (Given - Provider: Juvencio Modi, VANESSA) zonisamide (ZONEGRAN) capsule 200 mg(Linked Group 1) 200 mg, Oral, DAILY, First dose on Wed10/30/22 at 0900, Until Discontinued, Contact pharmacy to crush/open due to hazardous classification. Powder supplied by pharmacy may be placed in water, apple juice or applesauce and administered. 45 (Given - Provider: Gina Rodríguez RN) 1034 (Given - Provider: Gina Rodríguez RN) 0817 (Given - Provider: Juvencio Modi, VANESSA) zonisamide (ZONEGRAN) capsule 300 mg(Linked Group 1) 300 mg, Oral, DAILY AT BEDTIME, First dose on Wed10/30/22 at 0200, Until Discontinued, Contact pharmacy to crush/open due to hazardous classification. Powder supplied by pharmacy may be placed in water, apple juice or applesauce and administered. 1934 (Given - Provider: Jennifer Barry RN) 2004 (Given - Provider: Juanito Mirza, RN) PRN Medication Order 10/31/2022 11/01/2022 11/02/2022 Acetaminophen (TYLENOL) tablet 650 mg 650 mg, Oral, EVERY 6 HOURS NEEDED, Starting on Taylor 10/29/22 at 2244, Until Wed11/02/22 at 1614, Mild Pain, Oral temp > 100.4 F, Maximum dose of acetaminophen is 4000 mg from all sources in 24 hours. 0548 (Given - Provider: Jennifer Barry RN)51 (Given - Provider: Gina Rodríguez, RN)1934 (Given - Provider: Jennifer Barry RN) 1043 (Given - Provider: Gina Rodríguez RN) Heparin 100 units/mL flush injection 5 mL 5 mL, Intravenous, ONCE DIRECTED, 1 dose, Starting on Wed11/02/22 at 1345, Until Wed11/02/22 at 1614, Flush, De-access port LORazepam (ATIVAN) tablet 0.5 mg 0.5 mg, Oral, 3 TIMES DAILY NEEDED, Starting on Wed10/30/22 at 0448, Until Wed11/02/22 at 1614, Anxiety 1934 (Given - Provider: Jennifer Barry RN) 2004 (Given - Provider: Juanito Mirza, VANESSA) Melatonin tablet 6 mg 6 mg, Oral, DAILY AT BEDTIME NEEDED, Starting on Taylor 10/29/22 at 2244, Until Wed11/02/22 at 1614, Insomnia 2004 (Given - Provider: Juanito Mirza, VANESSA) Ondansetron (ZOFRAN) tablet 4 mg(Linked Group 2) 4 mg, Oral, EVERY 6 HOURS NEEDED, Starting on Taylor 10/29/22 at 2244, Until Wed11/02/22 at 1614, Nausea / Vomiting, 1st line for Nausea/Vomiting Ondansetron 4mg/2ml (ZOFRAN) injection 4 mg(Linked Group 2) 4 mg, Intravenous, EVERY 6 HOURS NEEDED, Starting on Taylor 10/29/22 at 2244, Until Wed11/02/22 at 1614, Nausea / Vomiting, 1st line for Nausea/Vomiting Polyethylene glycol (MIRALAX) packet 17 g 17 g, Oral, DAILY NEEDED, Starting on Taylor 10/29/22 at 2244, Until Wed11/02/22 at 1614, Constipation 1st Line 0958 (Given - Provider: Gina Rodríguez, VANESSA) Sodium chloride 0.9% IV solution 250 mL Intravenous, at 20 mL/hr, NEEDED, Starting on Taylor 10/29/22 at 2242, Until Wed11/02/22 at 1614, Carrier Fluid - See Admin. Inst, 250mL 0.9NS to be used as carrier fluid for intermittent small volume or piggyback medication administration as needed. Infusion rate of the carrier fluid should be set at 20 mL/hr unless the rate as the intermittent medication is less than 20 mL/hr. For intermittent medications with a rate less than 20 mL/hr set the carrier fluid at that rate of the intermittent or piggy back medication. Linked Groups Order Group 1: zonisamide (ZONEGRAN) capsule 200 mgJump to med 200 mg, Oral, DAILY, First dose on Wed10/30/22 at 0900, Until Discontinued
Contact pharmacy to crush/open due to hazardous classification. Powder supplied by pharmacy may be placed in water, apple juice or applesauce and administered. & nbsp;
And zonisamide (ZONEGRAN) capsule 300 mgJump to med 300 mg, Oral, DAILY AT BEDTIME, First dose on Wed10/30/22 at 0200, Until Discontinued
Contact pharmacy to crush/open due to hazardous classification. Powder supplied by pharmacy may be placed in water, apple juice or applesauce and administered. & nbsp;
Group 2: Ondansetron 4mg/2ml (ZOFRAN) injection 4 mgJump to med 4 mg, Intravenous, EVERY 6 HOURS NEEDED, Starting on Taylor 10/29/22 at 2244, Until 11/02/22 at 1614, Nausea / Vomiting, 1st line for Nausea/Vomiting Or Ondansetron (ZOFRAN) tablet 4 mgJump to med 4 mg, Oral, EVERY 6 HOURS NEEDED, Starting on Taylor 10/29/22 at 2244, Until 11/02/22 at 1614, Nausea / Vomiting, 1st line for Nausea/Vomiting FOR RECORDS PERTAINING TO PATIENTS WHO ARE OR HAVE BEEN ENROLLED IN A CHEMICAL DEPENDENCY/SUBSTANCEABUSE PROGRAM, SOME INFORMATION MAY BE OMITTED. This clinical summary was aggregated from multiple sources. Caution should be exercised in using it in the provision of clinical care. This summary normalizes information from multiple sources, and as a consequence, information in this document may materially change the coding, format and clinical context of patient data. In addition, data may be omitted in some cases. CLINICAL DECISIONS SHOULD BE BASED ON THE PRIMARY CLINICAL RECORDS. [facility]. provides no warranty or guarantee of the accuracy or completeness of information in this document.
[2024-11-04 14:52] VITALS: BP 92/74; PULSE 78
[2024-11-04 15:00] VITALS: BP 97/77; PULSE 74; RESP 18; O2SAT 98
[2024-11-04 15:05] LABS: Mucous, Urine 0 SEEN /hpf (<or=2+); Red Blood Cells-Urine 0 SEEN /hpf (0-5)
[2024-11-04 15:06] LABS: Color, Urine Yellow (Yellow); Glucose, Dipstick Normal (Normal); Ketone-Dipstick Negative (Negative); Leukocyte Esterase-Dipstick 25 /ul (Negative); Nitrite-Dipstick Negative (Negative); Occult Blood-Urine Negative /ul (Negative); Protein-Dipstick 15 mg/dl (Negative); Specific Gravity, Urine 1.010 (1.002-1.030); Urine Bilirubin Dipstick Negative (Negative)
[2024-11-04 15:16] LABS: Squamous Epithelial Cells - UA 0-5 SEEN /hpf (5-10)
[2024-11-04 16:00] VITALS: BP 100/78; PULSE 100; RESP 18; O2SAT 99
[2024-11-04] MEDS: Lorazepam 2 MG/ML WCH Syringe 0.5 MG IV (16:22)
--- NOTE | 2024-11-04 16:59 | EX.ED.DYSGE1 ---
HPI History of Present Illness Chief Complaint: Seizure Informant: patient, parent and EMS Narrative Narrative: 34-year-old female with a history of epilepsy had a seizure just prior to arrival. Was witnessed by mom, patient felt it coming on. She did not fall or injure herself. Seizure lasted a total of less than 5 minutes, mother saw her turning blue in the face and so thought she was not breathing well and gave her intranasal diazepam. Upon EMS arrival, she was postictal, and gradually came around and now she is alert and feels back to normal except for being very nauseated and states she has a mild headache. No focal neurologic symptoms no vision changes. She denies any recent illness. She states she stayed up almost all night last night for 03 November to watch fireworks and did not get to bed until about 3 AM and got up around 8 AM. She does not usually do that. She is been compliant with her antiepileptics, and states that he saw her neurologist recently and had levels drawn and everything looked good. She took her doses this morning. She denies any drug use. She has a history of myasthenia gravis, she has not been having any specific flareup symptoms lately. [facility] Medical History Gastroparesis Dietary counseling Encounter to establish care Chronic abdominal pain Chronic constipation Hx of peripheral vascular disease Normal echocardiogram (~05/18/16) Anemia Migraine headache Injury of head and neck Seizures Difficulty swallowing Difficulty chewing Non-smoker Shortness of breath on exertion Leg cramps History of stress test Chest pain Myasthenia gravis Home Medications ?Medication ?Instructions ?Recorded ?Last Taken ?Type levonorgestrel (Mirena) 20 mcg intrauterine UD 10/14/20 Unknown History control diazepam 10 mg/spray (0.1 mL) 10 mg intranasal PRN PRN Seizures 08/08/22 Unknown History nasal spray (Valtoco) zonisamide 100 mg capsule 300 mg (3 x 100 mg) PO QPM 04/12/24 Unknown Rx seizures #90 caps escitalopram oxalate 10 mg tablet 10 mg PO QHS #30 tabs 07/06/24 Unknown Rx (Lexapro) lamotrigine 250 mg tablet,extended 250 mg PO BID seizures #60 tabs 07/06/24 Unknown Rx release 24 hr zonisamide 100 mg capsule See Rx Instructions .Route 07/06/24 Unknown Rx .COMPLEX seizures #150 caps ravulizumab-cwvz 100 mg/mL 3,300 mg (33 mL) .Route .q8 weeks 07/27/24 Unknown Rx intravenous solution (Ultomiris) #33 mL lubiprostone 8 mcg capsule 8 mcg PO QDAY #30 caps 10/10/24 Unknown Rx (Amitiza) lidocaine HCl 2 % mucosal solution 10 ml PO TID PRN pain #100 mL 10/13/24 Unknown Rx (Lidocaine Viscous) ondansetron 4 mg disintegrating 4 mg PO Q6H PRN nausea and 10/13/24 Unknown Rx tablet vomiting #14 tabs Allergy/AdvReac Type Severity Reaction Status Date / Time barium sulfate Allergy Severe Other Verified 11/02/24 14:09 levetiracetam (From Keppra) Allergy Other Verified 11/02/24 14:09 Penicillins Allergy Rash Verified 11/02/24 14:09 phenytoin (From Dilantin) Allergy PT UNSURE Verified 11/02/24 14:09 OF REACTION prochlorperazine (From Allergy Other Verified 11/02/24 14:09 Compazine) shellfish derived Allergy Other Verified 11/02/24 14:09 technetium-99m AdvReac Severe Other Verified 11/02/24 14:09 soy AdvReac NEEDS Verified 11/02/24 14:09 FOLLOW-UP Family History Mother Heart disease Cervical cancer Father No problems noted. Surgical History History of colonoscopy (04/02/22) Hx of appendectomy Hx of total hip arthroplasty Hx of thymectomy Social History household members: children current occupational status: disabled pets and animals: Yes pets and animals: dog(s) and turtle(s) Smoking Status: Never smoker second hand exposure: Yes alcohol intake: never substance use type: does not use caffeine: Yes (1 cup coffee daily on avg) Type: coffee do you feel safe at home: Yes ROS ROS ED Constitutional Constitutional ED: Denies chills or fever(s) Eyes Eyes: Denies change in vision or diplopia ENT ENT ED: Denies rhinorrhea or sore throat Cardiovascular Cardiovascular: Denies chest pain or palpitations Respiratory/Chest Respiratory/Chest: Denies cough or dyspnea Gastrointestinal Gastrointestinal: Reports nausea; Denies abdominal pain, diarrhea or vomiting Genitourinary Genitourinary ED: Denies dysuria or hematuria Musculoskeletal Musculoskeletal: Denies back pain or neck pain Integumentary Denies abscess or rash Neurologic Neurologic: Reports headache(s) and seizures; Denies paresthesias or weakness Psychiatric Psychiatric: Denies anxiety or suicidal thoughts EXAM Physical Exam Const Vital Signs: 11/04/24 14:05 11/04/24 14:52 11/04/24 15:00 Temperature 98.6 F Temperature Source Oral Pulse Rate 106 H 78 74 Respiratory Rate 17 18 Blood Pressure 120/74 92/74 97/77 Blood Pressure Mean 89 80 83 Pulse Ox 95 98 Oxygen Delivery Method Room Air 11/04/24 16:00 11/04/24 17:00 Temperature Temperature Source Pulse Rate 100 112 H Respiratory Rate 18 20 H Blood Pressure 100/78 120/78 Blood Pressure Mean 85 92 Pulse Ox 99 99 Oxygen Delivery Method Positive well nourished and well developed General Appearance ED: well developed and NAD HEENT Reports moist mucous membranes normocephalic and atraumatic Eyes PERRL and EOMs intact bilaterally Neck full ROM and supple Resp normal respiratory effort and clear to auscultation bilaterally Cardio regular rate, regular rhythm and no murmurs GI non-tender and non-distended Auscultation: normoactive bowel sounds Palpation: soft Back/Spine no CVA tenderness General Back: other FROM Extremity normal to inspection General Extremety ED: Negative for edema, pulses abnormal or tenderness General Extremity: Negative for edema or pulses abnormal Neuro oriented x3, CN's II-XII intact bilaterally, no sensory deficits noted and gait normal Sensorium / Orientation: awake and alert Motor Exam: strength 5/5 throughout Psych mental status grossly normal Skin no rashes or lesions noted and no wounds MDM MDM MDM Narrative Medical decision making narrative: I observed the patient and had her perform a urinalysis. She has 5-10 white blood cells, trace leukocyte on dip, negative nitrate, and 1+ bacteria. She has no symptoms, so I sent for culture but my suspicion is that the reason for her breakthrough seizure is her sleep deprivation this past night. While observing her in the ER, she told staff that she was feeling an aura, like she was going to have another seizure. We had an IV already established, she was given Zofran prior to that, and so we gave her Ativan 0.5 mg and observed her longer. She felt better but was lethargic due to the benzodiazepines. She is little tachycardic but her blood pressures stable and she is neurologically intact. She was observed longer. Tachycardia normalized, she feels much better and back to normal. She is due to take her lamotrigine 250 ER in about an hour or so. I try to give her a double dose but in order to keep her from running out of the pills in her bottle, obtain them from the pharmacy, but they do not have the extended release just the immediate release. I discussed with the pharmacist. She recommended giving her 200 mg immediate release now, and then waiting until bedtime to take her own extended release 250 mg. I discussed this with the patient, we sent her urine for culture, but I do not think we need to put her on antibiotics right now. Stable for follow-up she has an appointment after the weekend with her neurologist. History & Record Review Discussion w/independent historian: Patient and Family Lab Data Attestation: I reviewed the patient's lab results. Labs: Laboratory Results - last 24 hr 11/04/24 15:00 Urine Color Yellow Urine Clarity Sl. Cloudy Urine pH 7.0 Ur Specific [place] 1.010 Urine Protein 15 H Urine Glucose (UA) Normal Urine Ketones Negative Urine Occult Blood Negative Urine Nitrite Negative Urine Bilirubin Negative Urine Urobilinogen 4 H Ur Leukocyte Esterase 25 H Urine RBC 0 SEEN Urine WBC 5-10 SEEN Ur Squamous Epith Cells 0-5 SEEN Urine Bacteria 1+ Urine Mucus 0 SEEN Discharge Plan Triage Chief Complaint: Seizure ED Provider: Evearrdo Liu Dx/Rx/DC Orders Clinical Impression: Breakthrough seizure, Epilepsy, Sleep deprivation Instructions: ED Seizure, Recurrent (Adult) Prescriptions: No Action zonisamide 100 mg capsule 300 mg PO QPM Qty: 90 4RF zonisamide 100 mg capsule See Rx Instructions .ROUTE .COMPLEX Qty: 150 5RF Rx Instructions: Take 2 capsules orally every morning and 3 capsules every evening. lamotrigine 250 mg tablet extended release 24hr 250 mg PO BID Qty: 60 5RF escitalopram oxalate [Lexapro] 10 mg tablet 10 mg PO QHS Qty: 30 5RF ondansetron 4 mg tablet,disintegrating 4 mg PO Q6H PRN (Reason: nausea and vomiting) Qty: 14 0RF lidocaine HCl [Lidocaine Viscous] 2 % solution 10 ml PO TID PRN (Reason: pain) Qty: 100 0RF Mirena 20 mcg/24 hours (6 yrs) 52 mg Intrauterine Device 20 mcg INTRAUTERINE UD Patient Comments: already placed Valtoco 10 mg/spray (0.1 mL) spray,non-aerosol 10 mg INTRANASAL PRN PRN (Reason: Seizures) Patient Comments: USE DIRECTED NASALLY 1 TO 2 TIMES A WEEK Ultomiris 100 mg/mL solution 3,300 mg .Route .q8 weeks Qty: 33 2RF Rx Instructions: 3300 mg IV infusion over 1 hour every 8 weeks. lubiprostone [Amitiza] 8 mcg capsule 8 mcg PO QDAY Qty: 30 2RF Referrals: Kendall Encarnacion MD [Non-Staff -Ordering Privileges] - Keep Hellen appointment Activity Restrictions/Additional Instructions: You received a dose of immediate release lamotrigine in the ED, so you can delay your extended release dose until 9-10 o'clock tonight, or if you go to bed earlier than just take it right before you go to sleep. Try to get a good night's sleep tonight. Continue your medications as prescribed, otherwise. Print Language: Czech Disposition Disposition: Home, Self Care
[2024-11-04 17:00] VITALS: BP 120/78; PULSE 112; RESP 20; O2SAT 99
[2024-11-04 18:02] VITALS: BP 120/78; PULSE 112; RESP 20; TEMP 36.6; O2SAT 99
== END 2024-11-04 18:17 | disposition home or self-care (01) ==
PROVIDERS: Emergency Provider Emergency Medicine; Visit Provider Emergency Medicine
DX: G40.909 Epilepsy, unspecified, not intractable, without status epilepticus (principal); G70.00 Myasthenia gravis without (acute) exacerbation; Z72.820 Sleep deprivation; Z79.899 Other long term (current) drug therapy; R51.9 Headache, unspecified
CPT/HCPCS: 81001; 87086; 87088; 96374; 96375; 99285; A4216; J2405

== ENCOUNTER → 2024-11-28 | Outpatient (CLI) | payer MEDICARE, MEDICAID, SELFPAY ==
[2024-11-28 08:44] LABS: Hematocrit 43.0 % (37-47); Hemoglobin 14.5 g/dL (12.0-15.0); Immature Granulocytes Count 0.030 X10^3/uL (0.0-0.0); Mean Corp Hgb Conc 33.7 g/dL (32-36); Mean Corpuscular Volume 88.3 fL (81-99); Mean Platelet Vol. 9.8 fl (6.2-12.0); NRBC Flagged by Analyzer 0 % (0-5); Platelet Count 283 K/mm3 (150-450); RBC Distribution Width CV 12.7 % (11.6-14.6); RBC Distribution Width SD 40.7 fl (35.1-43.9); Red Blood Count 4.87 M/mm3 (4.2-5.4); White Blood Count 7.7 K/mm3 (4.4-11.0)
[2024-11-28 09:37] LABS: AST(SGOT) 23 U/L (<=31); Alanine Aminotransfer ALT/SGPT 19 U/L (<=34); Albumin, Serum 4.7 g/dL (3.5-5.0); Alkaline Phosphatase 99 U/L (35-104); Anion Gap 13 (5-15); BUN 10 mg/dL (4-19); BUN/Creat Ratio 15.1 RATIO (10-20); Calcium,Total 9.5 mg/dL (7.6-11.0); Carbon Dioxide 18.1 mmol/L (21.0-32.0); Chloride 107 mmol/L (98-108); Globulin 2.8 g/dL (2.2-4.2); Glucose 97 mg/dL (70-99); Potassium 3.8 mmol/L (3.3-5.1)
== END | disposition home or self-care (01) ==
LOC: LAB 07:36
PROVIDERS: PCP Internal Medicine; Referring Provider Psychiatry & Neurology Neurology; Visit Provider Psychiatry & Neurology Neurology
DX: G40.909 Epilepsy, unspecified, not intractable, without status epilepticus (principal)
CPT/HCPCS: 36415; 80053; 85025

== ENCOUNTER → 2025-01-11 | Outpatient (CLI) | payer MEDICARE, MEDICAID, SELFPAY | END | disposition home or self-care (01) | LOC: LABSPEC 15:43 | PROVIDERS: PCP Internal Medicine; Referring Provider Internal Medicine; Visit Provider Internal Medicine | DX: Z20.822 Contact with and (suspected) exposure to COVID-19 (principal) | CPT/HCPCS: 87631 ==

== ENCOUNTER → 2025-01-18 | Outpatient (CLI) | payer MEDICARE, MEDICAID, SELFPAY ==
[2025-01-18 09:41] LABS: Ammonia 37.3 umol/L (11-51)
== END | disposition home or self-care (01) ==
LOC: LABSPEC 08:37 → LAB 08:38
PROVIDERS: PCP Internal Medicine; Referring Provider Psychiatry & Neurology Neurology; Visit Provider Psychiatry & Neurology Neurology
DX: G40.909 Epilepsy, unspecified, not intractable, without status epilepticus (principal)
CPT/HCPCS: 36415; 82140; 82542

== ENCOUNTER 2025-01-27 14:08 | Emergency (ER) | payer MEDICARE, MEDICAID, SELFPAY ==
--- OUTSIDE RECORDS SUMMARY | 2024-10-06 23:02 | XMS RPT_ITS ---
Author Name Auto Generated Organization OHIP Care Team Providers Care Ramp Lead Name Role Phone MICHELLE PATEL Attending Unavaila ANGELLA Duke Referring Unavailable JOHAN ARITA Admitting Unavailable ALDO PARK Consulting Unavailable MACY VELARDE Primary Care Unavailable PROBLEMS DATE TYPE CONDITION / CODE ATTENDING STATUS DANYA RCE 10/06/2024 Active Breakthrough sei zure (HCC) / G40.919(ICD-10) MICHELLE PATEL Active [facility] PROCEDURES No Procedure Records Found RESULTS THERAPY NT Observed: 10/09/2024 3:54 PM Status: COMPLETED Source: [facility] HNO ID: [id number] Author: WALLACE LEON CCC-CINDER BLOCK MASON Service: Speech/Swallow Author Type: Speech Language Pathologist Type: Therapy (PT/OT/Speech/Resp) Filed: 10/09/2024 16:00 Note Text: Speech Therapy Clinical Swallow Evaluation SERVICE DATE: 10/09/2024 SERVICE TIME: 1530 to 1545 ROOM: [place] [address] IMPRESSION Functional oropharyngeal phases of swallowing: without identified risk for aspiration RECOMMENDATIONS Diet Recommendations Pureed IDDSI Level 4 - per patient preference Thin Liquids IDDSI Level 0 Swallow Strategy Recommendations Sit upright 90 degrees for all PO Small Bite/Sip Feed / Eat at a slow rate Nursing Recommendations Reinforce use of swallowing strategies Response to Therapy Interventions: Good participation in activities Rehabilitation Precautions: Dysphagia DISCHARGE RECOMMENDATIONS Recommended Discharge Disposition: Home CURRENT HOSPITAL COURSE 10/06 admitted following a seizure. 10/06-10/07 intubated. Reason for Speech Therapy Consult: swallow evaluation Relevant Past Medical History: epilepsy, myasthenia gravis HOME ENVIRONMENT / PRIOR FUNCTIONAL LEVEL Prior Functional Level: Within Functional Limits Patient Lives With: Family (son or daughter) Prior Swallowing Function/Diet Textures: Pureed IDDSI Level 4, Thin Liquids IDDSI Level 0 - patient prefers pureed textured foods SUBJECTIVE The patient is alert, talking in logical sentences. She reports that throat remains sore post extubation. THERAPY DIAGNOSIS Dysphagia, unspecified TREATMENT INTERVENTIONS Clinical Swallow Evaluation (73250) Skilled Treatment Time (minutes): 15 $ Clinical Swallow Evaluation (70690) Billed Units: 1 unit TRAINING AND EDUCATION PROVIDED IN Dysphagia Management THERAPEUTIC SKILLS USED Education on role of discipline / importance of activity, Verbal cuing, Instruction in self-monitoring / self-assessment OBJECTIVE Current Status Oral Hygiene: Clear, moist oral cavity, Oral Health Assessment Tool (OHAT) Dentition: Retains Natural Dentition Current Feeding Method: Oral Current Diet Textures: Puree diet, Thin Liquids IDDSI Level 0 Current Level Of Communication: Verbal Current Management Of Secretions: Able to self-manage Oral Motor Exam: Within Functional Limits ORAL HEALTH ASSESSMENT TOOL Lips: 0 Tongue: 0 Gums and Tissues: 0 Saliva: 0 Natural Teeth: 0 Dentures: N/A Oral Cleanliness: 0 Dental Pain: 0 OHAT Total Score: 0 SWALLOW ASSESSMENT Intubated 10/06-10/07; she reports having had a sore throat post extubation and currently Position Of Patient During Assessment: Upright In Bed Feeding Method: Patient Self-Fed Consistencies Presented: Thin Liquids IDDSI Level 0, Pureed Solids IDDSI Level 4 Response to Swallow Interventions: The patient demonstrates normal swallow despite feeling a sore throat. She reports she does better with small sips, one sip at a time. Compensatory Strategies Utilized During Assessment: Alert (patient should be fully alert for P.O. intake), Sit upright 90 degrees for all PO, Small Bite/Sip, Feed / Eat at a slow rate Educated on Tatyana for general strengthening of pharyngeal phase of swallow GOALS SWALLOWING: Patient / Caregiver will demonstrate knowledge of taught compensatory strategies and dietary consistency recommendations to optimize functional swallow function without overt clinical signs and symptoms of aspiration or dysphagia Swallow Goals: Patient will tolerate Pureed IDDSI Level 4 diet consistency (patient preference) while utilizing compensatory/swallowing strategies given minimal cues in 90% of trials so that the patient will minimize the signs/symptoms of dysphagia. Patient will tolerate Thin Liquids IDDSI Level 0 consistency while utilizing compensatory/swallowing strategies given minimal cues in 90% of trials so that the patient will minimize the signs/symptoms of dysphagia. Patient will demonstrate adequate return of knowledge of all compensatory strategies/instruction to effectively assist the patient in immediate safety with oral intake and swallowing. Speech Rehab Potential: Good Good Rehab Potential Due To: Current objective clinical presentation, Good support system/ coping skills, Good motivation Patient /Caregiver Goals: Eat/Drink Without Restrictions ACUTE CARE TREATMENT PLAN ST Frequency: One Additional Visit Treatment Interventions: Dysphagia Management Plan of Care Developed with: Patient Plan for next visit: Dietary Consistencies, Swallowing Strategies SIGNATURE: Wallace Leon CCC-CINDER BLOCK MASON PATIENT NAME: Doug Flanagan DATE: October 09, 2024 TIME: 3:54 PM CASE MANAGEM Observed: 10/09/2024 3:31 PM Status: COMPLETED Source: [facility] HNO ID: [id number] Author: RUTHIE SPARROW RN Service: Care Management Author Type: Registered Nurse Type: Care Mgt Progress Note Filed: 10/09/2024 15:32 Note Text: CARE MANAGEMENT DISCHARGE NOTE SERVICE DATE: October 09, 2024 SERVICE TIME: 3:32 PM Admission Date: 10/06/2024 LOS: 3 days Discharge Arrangement Discharge Arrangement: Home with Relative Services Arranged- n/a Provider Name: follow up with PCP Macy Velarde Caregiver Assessment Caregiver is ready, willing and able to meet the patient's needs as recommended by the inter-professional team: Yes Name of Caregiver: parents Transportation Arrangements Transportation Arrangements: Car Date of Trip: 10/09/24 Destination: home Handoff Communication: Additional Information: Patient is discharging to parent's home with parents to assist and minor son. Family to transport. No transitional care needs identified. SIGNATURE: Ruthie Sparrow RN PATIENT NAME: Doug Flanagan DATE: October 09, 2024 TIME: 3:31 PM THERAPY NT Observed: 10/09/2024 3:29 PM Status: COMPLETED Source: [facility] HNO ID: [id number] Author: BILLY BAKER PT Service: Physical Therapy Author Type: Physical Therapist Type: Therapy (PT/OT/Speech/Resp) Filed: 10/09/2024 15:29 Note Text: Physical Therapy Evaluation Summary SERVICE DATE: 10/09/2024 SERVICE TIME: 1420 to 1435 ROOM: [place] [address] PT 6 Clicks Score: 20 DISCHARGE RECOMMENDATIONS Home Recommended Discharge Disposition Comments: Denies any therapy needs--felt it was overworking her in past. ASSESSMENT Response to Therapy Interventions: Good Participation in Activities Patient has returned to near her baseline has significant support at home and is safe to return home. no further acute PT needs PRECAUTIONS Fall Risk CURRENT HOSPITAL COURSE status epilepticus Relevant Past Medical History: myasthenia gravis, seizures, falls HOME LIVING Patient Lives With: Family (son or daughter) Assistance Available: PRN Entry To Home: Stairs Number Of Stairs Into Home: 1 Equipment Owned: Cane, Commode- Raised, Grab Bars- Shower, Grab Bars- Toilet, Shower Chair (service dog) PRIOR FUNCTIONAL LEVEL Within Functional Limits Normally indep to modified indep-when having a bad day her son or parents help as much as needed SUBJECTIVE no complaints THERAPY DIAGNOSIS General symptoms and signs-other TREATMENT INTERVENTIONS Evaluation Skilled Treatment Time (minutes): 15 $ Evaluation-Moderate (18166) Billed Units: 1 unit TRAINING AND EDUCATION PROVIDED Role of Physical Therapy THERAPEUTIC SKILLS USED Activity Dosing FUNCTIONAL STATUS Bed Mobility Supine To Sit: Independent Sit to Supine: Independent Transfers Sit To Stand: Contact Guard Assistance Stand To Sit: Contact Guard Assistance Bed to Chair Gait Contact Guard Assistance Gait Device: None General Deviations/Observations: Lateral sway increased, Narrow Base of Support Gait Distance (feet): 200 ft intervals Stairs Contact Guard Assistance Stairs Device: Rail Number of Stairs: 4 RANGE OF MOTION WFL STRENGTH Strength Limitation Comments: Grossly 4/5 BALANCE Static Sitting Balance: Good Dynamic Sitting Balance: Good Static Standing Balance: Fair Dynamic Standing Balance: Fair GOALS Transfer Sit to/from Stand with: Independent Ambulate with: Independent Distance: 50 Device: No Device Rehab Potential: Excellent Excellent Rehab Potential Due To: Good motivation ACUTE CARE TREATMENT PLAN PT Frequency: Discontinue Therapy Services Reasons Therapy Services Discontinued: Goals met Treatment Interventions: Education SIGNATURE: Billy Baker PT PATIENT NAME: Doug Flanagan DATE: October 09, 2024 TIME: 3:29 PM CNDS Observed: 10/09/2024 3:24 PM Status: COMPLETED Source: [facility] HNO ID: [id number] Author: MICHELLE PATEL MD Service: Hospital Medicine Author Type: Physician Type: Discharge Summary Filed: 10/09/2024 15:30 Note Text: DISCHARGE SUMMARY PATIENT NAME: Doug Flanagan Code Status: Full Code Highest Readmission Risk Score: 7 The 30 day readmissions risk score is derived from an internally validated risk model which evaluates patient level characteristics, utilization history, medication orders and lab results up until the day of discharge. Patients with a score of 39 or above are considered highest risk for readmission. Specific patient level drivers will be listed at the bottom of the summary. Admission Information Admission Information ADMIT DATE: 10/06/2024 DISCHARGE DATE: 10/09/2024 MY DOCTORS AND MEDICAL TEAM: My Main Hospital Doctor: Michelle Patel,* Primary Care Provider: Macy Velarde CNP My Medical Team Members: Treatment Team: Attending Provider: Michelle Patel MD Primary Service: DIMPLE MACK MY CONDITION AT DISCHARGE: Stable REASON I WAS IN THE HOSPITAL: Breakthrough seizures status epilepticus SUMMARY OF WHAT HAPPENED WHILE I WAS IN THE HOSPITAL: A pleasant 34-year-old female with history of seizure disorder. Admitted to the hospital because of breakthrough seizures and status epilepticus requiring intubation for airway protection. Patient successfully extubated and there have been no repeat episodes. EEG did not show any seizures. Patient was seen by neurology in consultation. Patient has remained stable and is able to return home. Follow-up with neurology and primary care provider as an outpatient. Zonisamide and Lamictal drug levels still pending at this time. OTHER PROBLEMS/DIAGNOSIS: Principal Problem: Status epilepticus (HCC) Active Problems: Breakthrough seizure (HCC) Epilepsy (HCC) Acute respiratory failure with hypoxia (HCC) On mechanically assisted ventilation (HCC) Myasthenia gravis (HCC) Hx of migraines Generalized anxiety disorder Lactic acidosis Hypokalemia Leukocytosis Obesity, Class I, BMI 30-34.9 Resolved Problems: * No resolved hospital problems. * OPERATIONS PERFORMED WHILE IN THE HOSPITAL: None IMPORTANT TEST/PROCEDURES: No procedures performed TEST RESULTS NOT AVAILABLE AT THIS TIME: No pending results Discharge Disposition Discharge Disposition: Home With Self Care Follow Up Appointments Follow-up Appointment When: In 1 week Patient/Parents to call for appointment?: Yes Leander Patel MD [phone] [address] [place] [address] PCP Requested Referral Additional Provider to Provider Information: 10/08/2024- No seizures overnight, remains stable post extubation, no acute issues overnight Exogenous Class 1 Obesity Treatment Team: Attending Provider: Michelle Patel MD Primary Service: DIMPLE MACK FINAL DIAGNOSIS: Breakthrough seizure Active Hospital Problems Diagnosis POA Status epilepticus (HCC) Yes Obesity, Class I, BMI 30-34.9 Unknown Lactic acidosis Yes Hypokalemia Yes Leukocytosis Yes Breakthrough seizure (HCC) Yes Epilepsy (HCC) Yes Acute respiratory failure with hypoxia (HCC) Yes On mechanically assisted ventilation (HCC) Yes Myasthenia gravis (HCC) Yes Hx of migraines Yes Generalized anxiety disorder Yes Resolved Hospital Problems No resolved problems to display. Transitions of Care Critical Issues: SPECIALIST FOLLOW-UP: Neurology LABS AND PROCEDURES PENDING AT DISCHARGE: No pending results. FOLLOW-UP APPOINTMENTS ALREADY SCHEDULED WITH A [facility] PROVIDER: Future Appointments Date Time Provider Department Center 12/07/2024 11:00 AM Heladio Mitchell MD [facility] ALLERGIES Allergen Reactions Barium Sulfate Other: See Comments Took SITZ study pills with Barium sulfate and zinc shortly after had breakthrough seizure Technetium-99m Other: See Comments Had test 10/03/2024 to check gastroemptying. Had 1.1Mci technetium sulfur colloid at test/procedure. Hospitalized shortly after with breakthrough seizures. Ciprofloxacin Mental Status Change Compazine [Prochlor* Intolerance Dilantin [Phenytoin] Mental Status Change Hallucination, vomiting Iodides Other: See Comments Pt states she can have a seizure with sea food but has had CT with dye without any problem on numerous occasions Keppra [Levetiracet* Mental Status Change, Other: See Comments Hallucinations, suicidal thoughts Penicillins Rash Shellfish Containin* Other: See Comments Soy Protein Other: See Comments DISCHARGE MEDICATION: Medication List CHANGE how you take these medications * lamoTRIgine ER 100 mg 24 hr tablet Commonly known as: LaMICtal XR Take two (2.0) in AM and four(4.0) tablets at bedtime What changed: additional instructions * lamoTRIgine ER 250 mg 24 hr tablet Commonly known as: LaMICtal XR What changed: Another medication with the same name was changed. Make sure you understand how and when to take each. * This list has 2 medication(s) that are the same as other medications prescribed for you. Read the directions carefully, and ask your doctor or other care provider to review them with you. CONTINUE taking these medications acetaminophen 325 mg tablet Commonly known as: TYLENOL escitalopram oxalate 10 mg tablet Commonly known as: LEXAPRO levonorgestrel 21 mcg/24hr (up to 8 yrs) 52 mg IUD Commonly known as: MIRENA ULTOMIRIS 100 mg/mL injection Generic drug: ravulizumab-cwvz VALTOCO 10 mg/spray (0.1 mL) nasal spray Generic drug: diazePAM zonisamide 100 mg capsule Commonly known as: ZONEGRAN Take 3 capsules by mouth once daily. STOP taking these medications apixaban 5 mg tab(s) Commonly known as: ELIQUIS benzonatate 100 mg capsule Commonly known as: TESSALON PERLES LORazepam 1 mg tablet Commonly known as: ATIVAN OXcarbazepine 150 mg tablet Commonly known as: TRILEPTAL peg 3350-Electrolytes 236-22.74-6.74 -5.86 gram suspension Commonly known as: GOLYTELY rOPINIRole 0.5 mg tablet Commonly known as: REQUIP Discharge Physical Exam: VITAL SIGNS: BP 107/68 Pulse 99 Temp 36.6 ?C (97.9 ?F) (Oral) Resp 16 Ht 157.5 cm (5' 2") Wt 75.1 kg (165 lb 9.1 oz) LMP 03/18/2022 SpO2 96% BMI 30.28 kg/m? GENERAL: Alert, no distress, cooperative SKIN: Skin color, texture, turgor normal. No rashes or lesions. HEAD/SINUSES: No significant findings EYES: PERRLA, EOMI OROPHARYNX: Lips, mucosa, and tongue normal. Teeth and gums normal. Oropharynx normal. LUNGS: Lungs clear to auscultation, Good diaphragmatic excursion EXTREMITIES: Extremities normal, no deformities, edema, clubbing or skin discoloration. Good capillary refill., No ulcers NEURO: Gait normal. Reflexes normal and symmetric. Sensation grossly intact, Cranial nerves II-XII intact The remainder of the physical exam is noncontributory. Additional Information Additional Health Information I Need to Know After I Leave the Hospital No additional instructions. The patient's risk for 30-day readmission is determined using the following contributing factors: Predictive Model Details 7% (Low) Factor Value Calculated 10/09/2024 05:21 -34% Admission Provider Speciality NEUROLOGY [facility] READMISSION RISK Model -14% Admissions (365d) 1 12% Current Age 34 10% Hospital [address] [place] [address] NEURO/CARD -9% [facility] -9% ED visits (365d) 0 -6% Diagnosis Count 11 -6% Observations (365d) 0 -5% No Shows (365d) 0 -5% Admissions (90d) 1 Plan of care discussed with Provider, RN, Patient 40 minutes spent in discharge planning on coordination of care SIGNATURE: Michelle Patel MD DATE: October 09, 2024 TIME: 3:25 PM CASE MGT COBY BUSTOS Observed: 10/09/2024 3:16 PM Status: COMPLETED Source: [facility] HNO ID: [id number] Author: RUTHIE SPARROW RN Service: Care Management Author Type: Registered Nurse Type: Care Mgt Initial Assessment Filed: 10/09/2024 15:18 Note Text: CARE MANAGEMENT: ASSESSMENT AND DISCHARGE PLAN SERVICE DATE: October 09, 2024 SERVICE TIME: 3:16 PM PCP: Macy Velarde CNP Primary Contact: Extended Emergency Contact Information Primary Emergency Contact: Karen Flanagan Mobile Relation: Father Secondary Emergency Contact: Genny Flanagan Mobile Relation: Mother Admission Status: Inpatient Insurance Provider: DELFINO SAHA MEDICARE Discharge Planning requested by: Per Department Practice Potential Transition Plans Home Advance Directives Current Advance Directive: None 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 with AD Completion: Yes Action: Education Provided Current Living Arrangements and Support Lives with: Children Type of Residence: Private Residence (House) Support: Family members, Children, Parent How do you manage to accomplish the following: Independent: Ambulation, Bathe/Shower, Dress, Meals/Meal Prep, Going to the bathroom, Medication Management Needs Assistance: Transportation to appointments/community Current Services/Equipment Current Post-Acute Service(s): DME Current DME Type: Shower seat Discharge Planning Patient Goal(s): Be able to go home, General wellness [place] of Choice Explained: [place] Given: No Reason Not Given: No placements necessary Are you interested in bedside delivery of your medications? Yes Discharge Planning Participant(s): Patient, Parents Patient/Family Comments: Caregiver Assessment: Caregiver is ready, willing and able to meet the patient's needs as recommended by the inter-professional team: Yes Name of Caregiver: parents Transport at Discharge: Transportation Arrangements: Car Destination: home Needs Prior to Discharge: Needs Prior to Discharge: To Be Determined Post-Acute Discharge Plan: Spoke with patient and mother at bedside. Patient lives at home with 13 year old son. 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 Parents live nearby and provide support, assistance, and transportation as needed. +PCP. +Rx. +DME utilizes shower chair. Pending therapy evals for patient goal of discharging to parents home with her son for a week or two after discharge. Mother to transport. CM to follow for transitional care planning. SIGNATURE: Ruthie Sparrow RN PATIENT NAME: Doug Flanagan DATE: October 09, 2024 TIME: 3:16 PM CASE MANAGEM Observed: 10/09/2024 1:30 PM Status: COMPLETED Source: [facility] HNO ID: [id number] Author: RUTHIE SPARROW RN Service: Care Management Author Type: Registered Nurse Type: Care Mgt Progress Note Filed: 10/09/2024 15:31 Note Text: CARE MANAGEMENT PROGRESS NOTE SERVICE DATE: 10/09/2024 SERVICE TIME: 1:30 PM LOS: 3 days IMM Follow Up Copy Given: Yes Copy given to:: Patient Method: In Person SIGNATURE: Ruthie Sparrow RN PATIENT NAME: Doug Flanagan DATE: October 09, 2024 TIME: 3:30 PM CONSULT Observed: 10/09/2024 10:16 AM Status: COMPLETED Source: [facility] HNO ID: [id number] Author: BONG SINGLETARY APRN.CNP Service: Gastroenterology Author Type: Nurse Practitioner Type: Consults Filed: 10/09/2024 10:58 Note Text: INITIAL CONSULT GASTROENTEROLOGY SERVICE DATE: 10/09/2024 SERVICE TIME: 09 Consulting Service: Gastroenterology Chief Complaint: seizures Opinion/advice regarding: chronic constipation Subjective HPI: This is a 34 year old female with a past medical history of myasthenia gravis, epilepsy, migraine headaches, chronic slow transit constipation and depression who presented to [facility] with c/o breakthrough seizure/status epilepticus via EMS. According to chart review and bedside evaluation with the patient with her mother present, she was given intranasal diazepam by her mother for concerns of seizure. The patient's mother was concerned that she appeared post-ictal longer than normal and called EMS. In the ED at [place], she began to have a seizure and underwent intubation for airway protection following ativan administration. She was then transferred to [facility] for neurology evaluation and management. She remained stable after transfer and she was subsequently extubated successfully on 10/07. She remained stable overnight following extubation with no acute issues and was transferred to a regular floor. GI consulted for chronic constipation. On exam, she is resting in bed. Mother at bedside. The patient reports long history of chronic constipation. She states that she is unable to take magnesium citrate for MOM. She states that metamucil is ineffective as is Miralax. She has had results with Senna and ducolax in the past. However, she felt that they stopped working. She uses Prunelax OTC at home every 3 days. She has plans to start Amitiza. She is unable to take Linzess. She reports that without a bowel regime she can go weeks without a BM. She underwent prior colonoscopy evaluation in 2021 which was normal. She has a sore throat from intubation. No c/o heartburn or dysphagia. No c/o nausea, emesis or abdominal pain. No fevers or chills. She is hoping to go home soon. 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 Traumatic brain injury (HCC) ~ 9 years of age Fell off the [employer] bars; lost consciousness 3-5 minutes PAST SURGICAL HISTORY Procedure Laterality Date APPENDECTOMY COLONOSCOPY 04/08/2022 No repeat due to age CONIZATION OF CERVIX; COLD KNIFE/LASER 10/17/2021 Paragard removal, Mirena IUD insertion HIP SURGERY HX Right INSJ TUNNELED CTR VAD W/SUBQ PORT AGE 3 YR/> 10/16/2020 LEEP PROCEDURE (DIRECTOR OF QUANTITATIVE RESEARCH DEPT)_*FL THYMECTOMY, PARTIAL/TOTAL total FAMILY HISTORY Problem Relation Age of Onset Headache Mother Multiple Sclerosis Sister Headache Maternal Grandfather Seizures Maternal Aunt Traumatic epilepsy Colon Cancer No Family History Social History Tobacco Use Smoking status: Never Smokeless tobacco: Never Vaping Use Vaping status: Never Used Substance Use Topics Alcohol use: No Drug use: No MEDICATIONS: Prior to Admission Medications: escitalopram oxalate (LEXAPRO) 10 mg tabletTake 10 mg by mouth once daily.Disp: Rfl: zonisamide (ZONEGRAN) 100 mg capsuleTake 3 capsules by mouth once daily.Disp: 270 capsuleRfl: 1 benzonatate (TESSALON PERLES) 100 mg capsuleTake 1 capsule by mouth three times daily as needed for cough.Disp: 14 capsuleRfl: 0 (Patient not taking: Reported on 10/08/2024) ravulizumab-cwvz (ULTOMIRIS) 100 mg/mL injectionevery 8 weeks.Disp: Rfl: lamoTRIgine ER (LAMICTAL XR) 250 mg 24 hr tabletTake 250 mg by mouth two times a day.Disp: Rfl: peg 3350-Electrolytes (GOLYTELY) 236-22.74-6.74 -5.86 gram suspensionSip on it until goneDisp: 4000 mLRfl: 0 (Patient not taking: Reported on 07/12/2022) diazePAM (VALTOCO) 10 mg/spray (0.1 mL) nasal sprayUse 1 spray in the nose as directed.Disp: Rfl: apixaban (ELIQUIS) 5 mg tab(s)Take 5 mg by mouth twice daily.Disp: Rfl: (Patient not taking: Reported on 10/08/2024) rOPINIRole (REQUIP) 0.5 mg tablettake 1 tablet by mouth 1-3 HOURS PRIOR TO BEDTIMEDisp: Rfl: (Patient not taking: Reported on 10/08/2024) OXcarbazepine (TRILEPTAL) 150 mg tabletTake 150 mg by mouth daily at bedtime.Disp: Rfl: (Patient not taking: Reported on 10/08/2024) LORazepam (ATIVAN) 1 mg tablettake 1 tablet by mouth if needed for SEIZURE GERATER THAN 5 MINUTES DIRECTED (FOR 30 DAYS)Disp: Rfl: levonorgestrel (MIRENA) 20 mcg/24 hours (8 yrs) 52 mg IUD1 Each by INTRAUTERINE route one time only.Disp: Rfl: lamoTRIgine ER (LAMICTAL XR) 100 mg 24 hr tabletTake two (2.0) in AM and four(4.0) tablets at bedtimeDisp: 540 tabletRfl: 1 (Patient taking differently: Take two (1) in AM and four(4.0) tablets at bedtime) acetaminophen (TYLENOL) 325 mg tabletTake 650 mg by mouth every 6 hours as needed.Disp: Rfl: Current Facility-Administered Medications Medication Dose Route Frequency bisacodyl 10 mg suppository (DULCOLAX) 10 mg RECTAL DAILY PRN enoxaparin 40 mg injection (LOVENOX) 40 mg SUBCUTANEOUS q 24 HR NaCl 0.9% iv flush bag 20 mL INTRAVENOUS PRN NaCl 0.9% iv infusion 5-30 mL/hr INTRAVENOUS CONTINUOUS acetaminophen 650 mg tab(s) (TYLENOL) 650 mg ORAL/FEEDING TUBE q 4 H PRN zonisamide 200 mg cap(s) (ZONEGRAN) 200 mg ORAL/FEEDING TUBE BEFORE BREAKFAST DAILY zonisamide 300 mg cap(s) (ZONEGRAN) 300 mg ORAL/FEEDING TUBE AT BEDTIME escitalopram oxalate 10 mg tab(s) (LEXAPRO) 10 mg ORAL/FEEDING TUBE AT BEDTIME lamoTRIgine (LaMICtal) tab(s) 250 mg 250 mg ORAL/FEEDING TUBE BID polyethylene glycol 3350 17 g packet 17 g ORAL/FEEDING TUBE BID benzocaine-menthol 1 lozenge (CEPACOL) 1 lozenge MUCOUS MEMBRANE (TOPICAL MOUTH AND THROAT) q 2 H PRN ondansetron (PF) 4 mg injection (ZOFRAN) 4 mg INTRAVENOUS q 6 H PRN gabapentin 300 mg cap(s) (NEURONTIN) 300 mg ORAL/FEEDING TUBE q 8 H senna-docusate 8.6-50 mg 2 tablet (SENNA-S) 2 tablet ORAL/FEEDING TUBE BID polyethylene glycol 3350 17 g packet 17 g ORAL ONCE bisacodyl EC 20 mg tab(s) (DULCOLAX) 20 mg ORAL ONCE ALLERGIES Allergen Reactions Barium Sulfate Other: See Comments Took SITZ study pills with Barium sulfate and zinc shortly after had breakthrough seizure Technetium-99m Other: See Comments Had test 10/03/2024 to check gastroemptying. Had 1.1[facility]ci technetium sulfur colloid at test/procedure. Hospitalized shortly after with breakthrough seizures. Ciprofloxacin Mental Status Change Compazine [Prochlor* Intolerance Dilantin [Phenytoin] Mental Status Change Hallucination, vomiting Iodides Other: See Comments Pt states she can have a seizure with sea food but has had CT with dye without any problem on numerous occasions Keppra [Levetiracet* Mental Status Change, Other: See Comments Hallucinations, suicidal thoughts Penicillins Rash Shellfish Containin* Other: See Comments Soy Protein Other: See Comments GI SPECIFIC REVIEW OF SYSTEMS: Review of systems completed. Pertinent positives and negatives noted in HPI. Objective PHYSICAL EXAM: BP 109/73 Pulse 94 Temp 37 ?C (98.6 ?F) (Oral) Resp 16 Ht 157.5 cm (5' 2") Wt 75.1 kg (165 lb 9.1 oz) LMP 03/18/2022 SpO2 98% BMI 30.28 kg/m? Physical Exam Vitals reviewed. Constitutional: General: She is not in acute distress. Appearance: She is not toxic-appearing. HENT: Head: Normocephalic and atraumatic. Mouth/Throat: Mouth: Mucous membranes are moist. Eyes: Extraocular Movements: Extraocular movements intact. Conjunctiva/sclera: Conjunctivae normal. Cardiovascular: Rate and Rhythm: Normal rate. Pulmonary: Effort: Pulmonary effort is normal. No respiratory distress. Abdominal: General: Bowel sounds are normal. There is no distension. Palpations: Abdomen is soft. Tenderness: There is no abdominal tenderness. There is no guarding or rebound. Skin: General: Skin is warm and dry. Neurological: Mental Status: She is alert and oriented to person, place, and time. Psychiatric: Attention and Perception: Attention normal. Mood and Affect: Mood normal. Speech: Speech normal. Behavior: Behavior normal. Behavior is cooperative. DATA: Diagnostic Tests Reviewed for Today's Visit: Most recent labs WBC (k/uL) Date Value 10/09/2024 7.69 RBC (m/uL) Date Value 10/09/2024 4.34 Hemoglobin (g/dL) Date Value 10/09/2024 13.0 Hematocrit (%) Date Value 10/09/2024 39.7 MCV (fL) Date Value 10/09/2024 91.5 MCH (pg) Date Value 10/09/2024 30.0 MCHC (g/dL) Date Value 10/09/2024 32.7 RDW-CV (%) Date Value 10/09/2024 12.8 Platelet Count (k/uL) Date Value 10/09/2024 241 MPV (fL) Date Value 10/09/2024 9.3 Glucose (mg/dL) Date Value 10/09/2024 104 (H) BUN (mg/dL) Date Value 10/09/2024 6 (L) Creatinine (mg/dL) Date Value 10/09/2024 0.67 Sodium (mmol/L) Date Value 10/09/2024 142 Potassium (mmol/L) Date Value 10/09/2024 3.6 (L) Chloride (mmol/L) Date Value 10/09/2024 106 CO2 (mmol/L) Date Value 10/09/2024 21 (L) Protein, Total (g/dL) Date Value 10/06/2024 6.4 Albumin (g/dL) Date Value 10/06/2024 4.0 Calcium, Total (mg/dL) Date Value 10/09/2024 9.4 Alkaline Phosphatase (U/L) Date Value 10/06/2024 88 Bilirubin, Total (mg/dL) Date Value 10/06/2024 0.3 AST (U/L) Date Value 10/06/2024 18 ALT (U/L) Date Value 10/06/2024 16 Colonoscopy 04/08/2022 at [facility] with Dr. Angelita Kraft MD Findings: The terminal ileum appeared normal. The colon (entire examined portion) appeared normal. No specimens collected. Study: Gastric Emptying Study Date of Exam: 10/03/24 Exam# [id number] Ordering Dr: Katie Mayo PROCEDURE: GASTRIC EMPTYING STUDY 10/03/2024 REASON FOR EXAM: BLOATING COMPARISON: No relevant prior. TECHNIQUE: The patient ingested a standard meal of 1 cup of oatmeal with the radiopharmaceutical. Following ingestion, anterior and posterior gamma camera images were acquired at 60 second intervals for a total of 60 minutes. Regions of interest were drawn, and a geometric mean was used to calculate a jore-lnqlddrn-ubsej. Medications taken in the past 24 hours that may affect gastric emptying: None Radiopharmaceutical: 1.1 mCi of Technetium Sulfur Colloid in oatmeal. FINDINGS: T half-life (min) 59 Percent activity remaining in stomach: 1 hour 52 % (normal 37-90%) Gastroesophageal reflux: Not demonstrated. NM/Gastric Emptying Study IMPRESSION: THERE IS 52% ACTIVITY REMAINING IN THE STOMACH AT 60 MINUTES, WITHIN THE NORMAL RANGE FOR GASTRIC EMPTYING. Reading Location: [place] [address] CC: Dr. Leander Patel MD; [facility]: Signed KUB 10/07/2024 Mild gaseous distention of the splenic flexure, descending and sigmoid colon. No small bowel distention. IUD is present in the central pelvis. Impression/Recommendations Chronic slow transit constipation. Colonoscopy 04/08/2022 normal as above. Sitz marker; slow transit constipation per gastroenterology note from August. She uses Prunelax OTC at home with results. She is to start Amitiza soon per OP gastroenterology. She is intolerant to magnesium citrate and MOM. She finds Miralax ineffective. Senna and Ducolax previously effective and lost efficacy. Unable to take Linzess. Status epilepticus. Aura at home followed by full generalized seizure activity requiring intubation to protect airway. She was successfully liberated from mechanical ventilation on 10/07. She is taking Lamictal and Zonisamide. Neurology following. [facility]. Intubated at outside ED for airway protection. She was successfully liberated from mechanical ventilation on 10/07. She is now on room air. Myasthenia gravis. Outpatient Ultomiris injections. Plan: Recommend PPI for GI prophylaxis. Continue Miralax twice daily. Give one extra dose today. Can consider tid dosing if indicated. Increase Senna 2 tablets twice daily. Give 20mg Ducolax today. Ok to use Prunelax as directed. This is a home medication. Not on hospital formulary. Monitor electrolytes and normalize as indicated. Recommend increased activity to increase gastric motility. Limit opioids and anticholinergic medications as able as they will decrease gastric motility. She has slow transit constipation by history. Serial abdominal exams. Diet as tolerated. Monitor all bowel function and document. Recommend continued OP GI evaluation and follow up as planned. She was seen in August. Follows at [facility]. The patient underwent normal colonoscopy evaluation as well as sitz marker testing and GES in regards to chronic constipation. No plan for repeat colonoscopy. Medical management and supportive care per primary. Thank you for involving us in the care of this patient. No further inpatient GI recommendations. Gi will sign off at this time. Please call with questions, concerns and/or changes in clinical status. Impression and plan reviewed with GI attending. GI attending Dr Segura can be reached by phone, pager or epic chat. SIGNATURE: Bong Singletary APRN.CNP PATIENT NAME: Doug Flanagan DATE: October 09, 2024 TIME: 10:16 AM CONSULT PROG Observed: 10/09/2024 6:49 AM Status: COMPLETED Source: [facility] HNO ID: [id number] Author: SALOME CHATTERJEE APRN.ROLF Service: Neurology General Author Type: Nurse Practitioner Type: Consult Progress Note Filed: 10/09/2024 12:04 Note Text: NEUROLOGY CONSULT PROGRESS NOTE SERVICE DATE: 10/09/2024 SERVICE TIME: 820 Current Attending Provider: Berry Greer MD Subjective Interval History: Today, Doug is improved. She is awake and alert. Mother at bedside. Mother and patient updated on results, pending tests, and plan of care. Follow up recommendations reviewed. Questions answered. Objective Physical Examination: Neurological: Mental Status: She is oriented to person, place and time. She does follow commands. Cranial Nerves: CNII: Visual acuity normal, Visual moore full to confrontation, No APD noted on exam CNIII, IV, : Pupils equal, round and reactive to light, full extraoccular movements without nystagmus CN V: Facial sensation intact bilaterally to fine touch and pinprick, masseter 5/5 CN VII: Facial muscles symmetric and strong CN VIII: Hears finger rub well bilaterally CN IX: Gag Reflex Not Examined CN X: Palate elevates symmetrically CN XI: Full strength shoulder shrug bilaterally CN XII: Tongue protrusion full and midline Motor Exam: Muscle Tone: Normal Strength today in the bilateral extremities is 5/5 Sensation: Intact to light touch. New Labs: WBC (k/uL) Date Value 10/09/2024 7.69 10/08/2024 9.43 10/07/2024 13.98 RBC (m/uL) Date Value 10/09/2024 4.34 10/08/2024 3.94 10/07/2024 4.11 Platelet Count (k/uL) Date Value 10/09/2024 241 10/08/2024 216 10/07/2024 201 BUN (mg/dL) Date Value 10/09/2024 6 10/08/2024 6 10/07/2024 4 Creatinine (mg/dL) Date Value 10/09/2024 0.67 10/08/2024 0.65 10/07/2024 0.57 CBC, Coags, BMP, Mg, Phos INR (no units) Date Value 10/06/2024 1.1 APTT (sec) Date Value 10/06/2024 24.3 Sodium (mmol/L) Date Value 10/09/2024 142 10/08/2024 142 10/07/2024 143 Potassium (mmol/L) Date Value 10/09/2024 3.6 10/08/2024 3.8 10/07/2024 3.3 Chloride (mmol/L) Date Value 10/09/2024 106 10/08/2024 112 10/07/2024 110 CO2 (mmol/L) Date Value 10/09/2024 21 10/08/2024 21 10/07/2024 22 Glucose (mg/dL) Date Value 10/09/2024 104 10/08/2024 80 10/07/2024 96 No results found for: "ICA" Calcium, Total (mg/dL) Date Value 10/09/2024 9.4 10/08/2024 8.3 10/07/2024 8.8 Magnesium (mg/dL) Date Value 10/09/2024 1.8 10/08/2024 1.8 10/07/2024 1.7 Phosphorus (mg/dL) Date Value 10/09/2024 2.8 10/08/2024 2.9 10/07/2024 3.2 Liver Function, Amylase, AND Lipase Protein, Total (g/dL) Date Value 10/06/2024 6.4 Albumin (g/dL) Date Value 10/06/2024 4.0 ALT (U/L) Date Value 10/06/2024 16 AST (U/L) Date Value 10/06/2024 18 Alkaline Phosphatase (U/L) Date Value 10/06/2024 88 Bilirubin, Total (mg/dL) Date Value 10/06/2024 0.3 No results found for: "AMYLASE" No results found for: "LIPASE" No results found for: "LACTATE" BEM Reading: This bedside EEG was recorded from 0501 on 10/08/24 until 0625 on 10/09/24 and is suggestive of generalized epilepsy and a mild diffuse encephalopathy. No EEG seizures were seen during this recording. DATA: Diagnostic tests reviewed for today's visit: Most recent labs and imaging results. Impression/Recommendations 34 year old female with past medical history significant for Myasthenia Gravis, migraines, Epilepsy, and generalized anxiety disorder who presents as transfer from [facility] with complaint of breakthrough seizure/status epilepticus. Per chart review, patient had called her mom shortly after noon noting that she needed help. She seemed confused and post ictal on the phone so her mom thought she had another seizure. Patient's mom went to check on her and noted she was post-ictal longer than normal despite administering intranasal diazepam, therefore EMS called. In ED at [place], patient reportedly returned to baseline but then began to seize again, prompting ativan administration and intubation for airway protection. CT brain negative. Labs, UA unremarkable. No reported trauma. Per patient's mother, compliant with meds, no missed doses. Patient subsequently transferred here for further management of seizures. Hospital Course: 10/08/2024- No seizures overnight, remains stable post extubation, no acute issues overnight. Transferred [facility] Seizure Neuro checks q4h, tele Seizure precautions No EEG seizures overnight, EEG dc'd Follow lamictal and ZNA levels No need for MRI given epilepsy history Follow up with epilepsy requested Myasthenia Gravis Without exacerbation NIF/VC if respiratory concerns Outpatient Ultomiris injections Follows with outpatient neurologist Seizure Restrictions NO Driving for 6 months NO Operating heavy machinery NO Working at height, on ladders, or step stools NO Swimming or tub baths unsupervised NO Cooking on front burner on the stove Follow up with neurology No further inpatient recommendations. Will follow labs peripherally, patient may be discharged prior to lamotrigine and zonisamide levels resulting. Please call or page with questions SIGNATURE: Salome Chatterjee APRN.ROLF PATIENT NAME: Doug Flanagan DATE: October 09, 2024 TIME: 6:50 AM 1149 Part of my note may have been copied from previous documentation. It has been reviewed and is accurate. BAS METAB 1999 PNL SERPL Collected: 01/2025 3:55 AM Status: F Source: [facility] Order Comment: Specimen Type : BLOOD SPECIMEN Ordering Facility: [facility] Address: Formerly named [facility] [place] [address] TYPE CODE TESTS RESULT OUT OF RANGE REFERENCE UNITS LAB 2345-7(LOINC) Glucose SerPl-mCnc 104 High 74-99 mg/dL Result Comment: The [place] Diabetes Association (ADA) provides guidance for cutoff values for fasting glucose and random glucose. The ADA defines fasting as no caloric intake for at least 8 hours. Fasting plasma glucose results between 100 to 125 mg/dL indicate increased risk for diabetes (prediabetes). Fasting plasma glucose results greater than or equal to 126 mg/dL meet the criteria for diagnosis of diabetes. In the absence of unequivocal hyperglycemia, results should be confirmed by repeat testing. In a patient with classic symptoms of hyperglycemia or hyperglycemic crisis, random plasma glucose results greater than or equal to 200 mg/dL meet the criteria for diagnosis of diabetes. Reference: Standards of Medical Care in Diabetes 2016, [place] Diabetes Association. Diabetes Care. 2016.39(Suppl 1). LAB 3094-0(LOINC) BUN SerPl-mCnc 6 Low 7-21 mg/ dL LAB 2160-0(LOINC) Creat SerPl-mCnc 0.67 0.58-0.96 mg/dL LAB 2951-2(LOINC) Sodium SerPl-sCnc 142 136-144 mmol/L LAB 2823-3(LOINC) Potassium SerPl-sCnc 3.6 Low 3.7-5.1 mmol/L LAB 2075-0(LOINC) Chloride SerPl-sCnc 106 98-107 mmol/L LAB 2028-9(LOINC) CO2 SerPl-sCnc 21 Low 22-30 mmo l/L LAB 1863-0(LOINC) Anion Gap4 SerPl-sCnc 15 8-15 mmol/L LAB 59932-4(LOINC) Calcium SerPl-mCnc 9.4 8.5-10.2 mg/dL LAB 57645-7(LOINC) Creatinine + eGFR Pnl SerPlBld 116 >=60 mL/min/1. 73m??? Result Comment: Estimated Gl omerular Filtration Rate (eGFR) is calculated using the 2020 CKD-EPI creatinine equation. This equation utilizes serum creatinine, sex, and age as parameters. The creatinine assay has traceable calibration to isotope dilution-mass spectrometry. Refer to KDIGO guidelines for clinical interpretation. In patients with unstable renal function, e.g. those with acute kidney injury, the eGFR may not accurately reflect actual GFR. Performed By: #### 53574-7, 2777-1, 27079-4 #### [facility] CLIA [id number] [address] MAGNESIUM SERPL-MCNC Collected: 10/09/2024 3:55 AM S tatus: F Source: [facility] Order Comment: Specimen Type : BLOOD SPECIMEN Ordering Facility: [facility] Address: [address] [place] [address] TYPE CODE TESTS RESULT OUT OF RANGE REFERENCE UNITS LAB 74433-8(LOINC) Magnesium SerPl-mCnc 1.8 1.7-2.3 mg/dL Performed By: #### 78518-4, 2776-1, #### [facility] CLIA [id number] [address] PHOSPHATE SERPL-MCNC Collected: 10/09/2024 3:55 AM S tatus: F Source: [facility] Order Comment: Specimen Type : BLOOD SPECIMEN Ordering Facility: [facility] Address: [address] [place] [address] TYPE CODE TESTS RESULT OUT OF RANGE REFERENCE UNITS LAB 2777-1(LOINC) Phosphate SerPl-mCnc 2.8 2.7-4.8 mg/dL Performed By: #### 81177-9, 277-1, #### [facility] CLIA [id number] [address] CBC PNL BLD AUTO Collected: 10/09/2024 3:55 AM Statu s: F Source: [facility] Order Comment: Specimen Type : BLOOD SPECIMEN Ordering Facility: [facility] Address: [address] [place] [address] TYPE CODE TESTS RESULT OUT OF RANGE REFERENCE UNITS LAB 6690-2(LOINC) WBC # Bld Auto 7.69 3.70-11.00 k/uL LAB 789-8(LOINC) RBC # Bld Auto 4.34 3.90-5.20 m/ uL LAB 718-7(LOINC) Hgb Bld-mCnc 13.0 11.5-15.5 g/dL LAB 4544-3(LOINC) Hct VFr Bld Auto 39.7 36.0-46.0 % LAB 787-2(LOINC) MCV RBC Auto 91.5 80.0-100.0 fL LAB 785-6(LOINC) MCH RBC Qn Auto 30.0 26.0-34.0 pg LAB 786-4(LOINC) MCHC RBC Auto-mCnc 32.7 30.5-36.0 g/dL LAB 30658-2(LOINC) RDW RBC-Rto 12.8 11.5-15.0 % LAB 777-3(LOINC) Platelet # Bld Auto 241 150-400 k/uL LAB 23284-6([facility]) PMV Bld Auto 9.3 9.0-12.7 fL LAB 771-6(LOINC) nRBC # Bld Auto <0.01 <0.01 k/uL Performed By: #### 48362-6 # ### [facility] CLIA [id number] [address] NURSING PROG Observed: 10/08/2024 3:51 PM Status: COMPLETED Source: [facility] HNO ID: [id number] Author: TYRELL ALEJANDRO RN Service: Nursing Author Type: Registered Nurse Type: Nursing Progress Note Filed: 10/08/2024 15:52 Note Text: Patient given 1- soap reuben enema. Patient felt nauseous after 1 and would like to wait on the 2nd. Minimal output from enema.GI doctor informed of situation. TSH W/REFLEX FT4 Collected: 2:44 PM Status: F Source: [facility] Order Comment: Specimen Type : BLOOD SPECIMEN Ordering Facility: [facility] Address: [address] [place] [address] TYPE CODE TESTS RESULT OUT OF RANGE REFERENCE UNITS LAB 67668-7(LOINC) TSH SerPl DL<=0.005 mIU/L-aCnc 1.300 0.270-4.200 mIU/L Result Comment: If the patie nt is , TSH reference range varies by gestational period: First Trimester (weeks 9-12): 0.180-2.990 mIU/L Second Trimester: 0.110-3.980 mIU/L Third Trimester: 0.480-4.710 mIU/L Kirt Fierro et al. A Practical Approach for the Verifications and Determination of Site- and Trimester-Specific Reference Intervals for Thyroid Function tests in . Thyroid, 2019:29:3:412-420. Richie Hannon, et al. 2017 Guidelines of the [place] Thyroid Association for the Diagnosis and Management of Thyroid Disease during and the . Thyroid, 2017:27:3:315-389. Performed By: #### TSHRF ### # [facility] CLIA [id number] [address] OF [facility] NUTRITION Observed: 10/08/2024 10:33 AM Status: COMPLETED Source: [facility] HNO ID: [id number] Author: TIFFANY CHOI RD Service: Nutrition Therapy Author Type: Registered Dietitian Type: Nutrition Filed: 10/08/2024 13:21 Note Text: NUTRITION THERAPY INITIAL ASSESSMENT SERVICE DATE: 10/08/2024 SERVICE TIME: Start Time: 1033 Nutrition Assessment: Recommended Malnutrition Diagnosis: No Malnutrition Identified Nutrition Diagnosis: Problem: Suboptimal protein/energy intake Related to: Change in GI tract motility As evidenced by: Medical condition Care Plan: Change diet to pureed per pt request (and/or per CINDER BLOCK MASON recommendations) Supplements: Ensure Clear (needs low Mag/K and no soy option) Refer to: Nutrition Therapy for outpatient RD visit Vitamins and Minerals: Multivitamin without minerals Monitor and Evaluation: Meet greater than 75% of estimated needs, Monitor bowel function, Monitor labs, I/Os, vital signs, weight Discharge Recommendations: Diet, Oral Supplements, Outpatient Nutrition Therapy appointment Diet: as tolerated/per CINDER BLOCK MASON Oral Supplements: high protein, high calorie item of choice as needed HPI: 34 year old female presenting with seizure requiring intubation. Intake History: Nutrition Intake Prior to Admission: Greater than 75% estimated energy needs (or equal to) greater than or equal to 1 month. Spoke with pt AND mom at bedside. Pt endorses hx Myasthenia Gravis, states this has led to constipation, abdominal pain, bloating. She mainly eats soft/walo-ey-ylwiwr foods. She states she eats baby food, [employer] stage 2 pouches. Eats these every day. Also has rice, soup, [place] AND Naked shakes. States she does take a daily MVI. Asking for foods here to be pureed as this is the consistency she does best with. Current Nutrition Intake: Less than 50% estimated energy needs Current Intake Over time: 1-2 days. Ate some soft foods this morning, but she is used to pureed foods AND is c/o some nausea after her meal. She is not sure if this is related. Dosing Weight: 49.9 kg (110 lb) Dosing Weight Type: [place] body weight Estimated kilocalorie needs: 7760-4750 Calorie Calculation Method: 25-30 kcals/kg Estimated protein needs (grams): 50-75 Grams protein determined by: 1.0 - 1.5 g/kg Diet Orders (From admission, onward) Start Ordered 10/08/24 1115 DIET FOOD CONSISTENCY CONTROLLED START NOW Question Answer Comment Food Consistency PUREED (L4) Liquid Consistency THIN LIQUID (L0) Feeding instructions for nursing patient request 10/08/24 1106 10/08/24 1115 DIET SUPPLEMENTS START NOW Question Answer Comment Supplement 1 ENSURE PLUS HIGH PROTEIN CHOCOLATE Supplement 1 Frequency BREAKFAST Supplement 1 Frequency LUNCH Supplement 1 Frequency DINNER 10/08/24 1106 Anthropometrics: Height: 157.5 cm (5' 2") Weight: 74.1 kg (163 lb 5.8 oz) Usual Weight: 72.6 kg (160 lb) 3 months Usual Weight Obtained From: Chart Review. Pt states her weight has varied from 151-160 lbs. Per EMR, weight seems to be overall stable x 1 year Body mass index is 29.88 kg/m?. Wt Readings: Date: Wt: 10/06/2024 74.1 kg (163 lb 5.8 oz) 08/18/2024 73.3 kg (161 lb) - [facility] 07/06/2024 72.9 kg (160 lb) 04/12/2024 73.5 kg (162 lb) 10/11/2023 75.0 kg (165 lb 5.5 oz) Physical Exam: Subcutaneous fat loss: No Subcutaneous Fat Loss Muscle loss: No Muscle Loss Potential micronutrient deficiency: No deficiency identified Edema/Ascites: No edema GI Symptoms: Constipation, Abdominal pain, Bloating, Nausea. Hx myasthenia gravis noted, denies swallowing problems but does c/o chronic constipation Stool Amount: Decreased (no BM x 2 weeks) Functional Status: Not related to malnutrition status Potential Signs of Inflammation: Tachycardia MNT Billing: $ Initial Assessment: 2 units Time Spent (mins): 30 SIGNATURE: Tiffany Choi RD PATIENT NAME: Doug Flanagan DATE: October 08, 2024 TIME: 10:33 AM BAS METAB 1999 PNL SERPL Collected: 12/2024 2:31 AM Status: F Source: [facility] Order Comment: Specimen Type : BLOOD SPECIMEN Ordering Facility: [facility] Address: [address] [place] [address] TYPE CODE TESTS RESULT OUT OF RANGE REFERENCE UNITS LAB 2345-7(LOINC) Glucose SerPl-mCnc 80 74-99 mg/dL Result Comment: The [place] Diabetes Association (ADA) provides guidance for cutoff values for fasting glucose and random glucose. The ADA defines fasting as no caloric intake for at least 8 hours. Fasting plasma glucose results between 100 to 125 mg/dL indicate increased risk for diabetes (prediabetes). Fasting plasma glucose results greater than or equal to 126 mg/dL meet the criteria for diagnosis of diabetes. In the absence of unequivocal hyperglycemia, results should be confirmed by repeat testing. In a patient with classic symptoms of hyperglycemia or hyperglycemic crisis, random plasma glucose results greater than or equal to 200 mg/dL meet the criteria for diagnosis of diabetes. Reference: Standards of Medical Care in Diabetes 2016, [place] [employer]. Diabetes Care. 2016.39(Suppl 1). LAB 3094-0(LOINC) BUN SerPl-mCnc 6 Low 7-21 mg/ dL LAB 2160-0(LOINC) Creat SerPl-mCnc 0.65 0.58-0.96 mg/dL LAB 2951-2(LOINC) Sodium SerPl-sCnc 142 136-144 mmol/L LAB 2823-3(LOINC) Potassium SerPl-sCnc 3.8 3.7-5.1 mmol/L LAB 2075-0(LOINC) Chloride SerPl-sCnc 112 High 98-107 mmol/L LAB 2027-9(LOINC) CO2 SerPl-sCnc 21 Low 22-30 mmo l/L LAB 1863-0(LOINC) Anion Gap4 SerPl-sCnc 9 8-15 mmol/L LAB 39132-3(LOINC) Calcium SerPl-mCnc 8.3 Low 8.5-10.2 mg/dL LAB 80418-2(LOINC) Creatinine + eGFR Pnl SerPlBld 117 >=60 mL/min/1. 73m??? Result Comment: Estimated Gl omerular Filtration Rate (eGFR) is calculated using the 2020 CKD-EPI creatinine equation. This equation utilizes serum creatinine, sex, and age as parameters. The creatinine assay has traceable calibration to isotope dilution-mass spectrometry. Refer to KDIGO guidelines for clinical interpretation. In patients with unstable renal function, e.g. those with acute kidney injury, the eGFR may not accurately reflect actual GFR. Performed By: #### 25902-2, , 2776-05 #### [facility] CLIA [id number] [address] MAGNESIUM SERPL-MCNC Collected: 10/08/2024 2:31 AM S tatus: F Source: [facility] Order Comment: Specimen Type : BLOOD SPECIMEN Ordering Facility: [facility] Address: [address] [place] [address] TYPE CODE TESTS RESULT OUT OF RANGE REFERENCE UNITS LAB 31655-9([facility]) Magnesium SerPl-mCnc 1.8 1.7-2.3 mg/dL Performed By: #### 96974-5, , 2776-05 #### [facility] CLIA [id number] [address] OF [facility] PHOSPHATE SERPL-MCNC Collected: 10/08/2024 2:31 AM S tatus: F Source: [facility] Order Comment: Specimen Type : BLOOD SPECIMEN Ordering Facility: [facility] Address: [address] [place] [address] TYPE CODE TESTS RESULT OUT OF RANGE REFERENCE UNITS LAB 7-([facility]) Phosphate SerPl-mCnc 2.9 2.7-4.8 mg/dL Performed By: #### 61274-5, , 2776-05 #### [facility] CLIA [id number] [address] CBC PNL BLD AUTO Collected: 10/08/2024 2:31 AM Statu s: F Source: [facility] Order Comment: Specimen Type : BLOOD SPECIMEN Ordering Facility: [facility] Address: [address] [place] [address] TYPE CODE TESTS RESULT OUT OF RANGE REFERENCE UNITS LAB 6690-2(LOINC) WBC # Bld Auto 9.43 3.70-11.00 k/uL LAB 789-8(LOINC) RBC # Bld Auto 3.94 3.90-5.20 m/ uL LAB 718-7(LOINC) Hgb Bld-mCnc 11.6 11.5-15.5 g/dL LAB 4544-3(LOINC) Hct VFr Bld Auto 36.4 36.0-46.0 % LAB 787-2(LOINC) MCV RBC Auto 92.4 80.0-100.0 fL LAB 785-6(LOINC) MCH RBC Qn Auto 29.4 26.0-34.0 pg LAB 786-4(LOINC) MCHC RBC Auto-mCnc 31.9 30.5-36.0 g/dL LAB 44867-2(LOINC) RDW RBC-Rto 13.0 11.5-15.0 % LAB 777-3(LOINC) Platelet # Bld Auto 216 150-400 k/uL LAB 33112-1(LOINC) PMV Bld Auto 9.8 9.0-12.7 fL LAB 771-6(LOINC) nRBC # Bld Auto <0.01 <0.01 k/uL Performed By: #### 30196-5 # ### [facility] CLIA [id number] [address] PROGRESS Observed: 10/08/2024 12:55 AM Status: COMPLETED Source: [facility] HNO ID: [id number] Author: KAREN CRISOSTOMO APRN.[employer] Service: Neurology ICU Author Type: Nurse Practitioner Type: Progress Notes Filed: 10/08/2024 00:55 Note Text: SERVICE DATE: 10/08/2024 SERVICE TIME: 12:55 AM NEURO ICU PROGRESS NOTE DATE OF ADMISSION: 10/06/2024 Subjective Hospital Course: 10/08/2024- No seizures overnight, remains stable post extubation, no acute issues overnight Events Since Last Note: see above Objective BP 102/63 Pulse 80 Temp 36.8 ?C (98.3 ?F) (Oral) Resp 15 Ht 157.5 cm (5' 2") Wt 73.9 kg (162 lb 14.7 oz) LMP 03/18/2022 SpO2 100% BMI 29.80 kg/m? Weight change: Neuro: Awake and oriented GCS: Eyes: 4. Spontaneous Verbal: 5: Oriented Motor: 6: Obeys Motor commands Total: 15 CRANIAL NERVES: Normal mood and affect. CNII-XII grossly intact. MOTOR STRENGTH: Upper and lower extremity 5/5 bilaterally SENSATION: Intact light touch COORDINATION: Finger-to- nose-finger intact bilaterally CV: S1S2, RRR Pulm: CTAB, bilateral chest excursion Mechanical Ventilation: No. Supplemental Oxygen: No GI/: soft and non tender Skin/Extremities: Edema- No Peripheral pulses- Present all extremities Wounds/Drsgs- No Breakdown- No Diagnostic tests reviewed for today's visit: Most recent labs and imaging results. Lines, Drains, and Airways Line Duration Implanted Vascular Access Device Single Port 10/06/24 2300 Right Chest 1 day Peripheral 10/06/24 2300 Left Antecubital 18 Gauge 1 day ICU Checklist Last Documented/Reviewed time: 10/08/2024 12:48 AM ICU Consent Complete?: No ICU Code Status "History assess/Full code by default: Yes, will address today A= Assess, Prevent, Manage Pain Pain adequately controlled?: Yes C= Choice of Sedation and Analgesia RASS at Goal?: Yes B= Both Spontaneous Awakening and Breathing Trials Ventilator: None D= Delirium: Assess, Prevent and Manage ICU Delirium Status: CAM Positive - existing, continue interventions Sleep adequate?: Yes Restraint Status: None E= Early Mobility/Excercise ICU Mobility: ICU Mobility Goal: Sit at edge of bed, Move to chair F= Family Engagement and Empowerment ICU plan of care visit at bedside in last 24 hours: Yes, Provider, RN, Patient/ designee ICU Disposition: ICU Disposition-POC Detail: To be determined Prevention: Line Status: None Rios Status: None Pressure Injury Status: None GI/Stress Ulcer Prophylaxis: None - not required Nutrition is at Goal: Advancing to goal VTE Prophylaxis: Chemoprophylaxis: Low Molecular Wt Heparin PERSONAL INVOLVEMENT IN CARE: Reviewing initiation, responses and adjustments to therapies, coordination of care, and updating family with Staff Physician, Dr. Arita. Assessment AND Plan 33yr old F hx of MG, migraines and Epilepsy. - Transfer from [facility] w/ breakthrough seizure x2 requiring intubation. Active Hospital Problems as of 10/08/2024 Noted - Resolved POA Hospital Breakthrough seizure (HCC) 10/06/2024 - Present Yes Current Assessment AND Plan See "Status Epilepticus" * (Principal) Status epilepticus ([facility]) 10/06/2024 - Present Yes Current Assessment AND Plan Aura at home followed by full generalized seizure activity witnessed by family. Home PRN rescue intranasal diazepam administered Returned to baseline in ED, however, then seized again requiring Ativan administration and intubation for airway protection - CT brain unremarkable - Propofol bolus given followed by Versed gtt A 1mg/hr Plan: - D/c Versed gtt - D/C propofol gtt - PRN fentanyl pushes for pain - cEEG - Check Lamictal and zonisamide level - Continue home Lamictal 250mg PO BID and zonisamine 200mg qAM/300mg qPM. - Fu labs to evaluate, r/o underlying infectious or metabolic etiology for breakthrough seizure - TSH WNL at OSH - UA, Utox negative at outside hospital - MRI wwo contrast when able Epilepsy (HCC) 10/06/2024 - Present Yes Current Assessment AND Plan Hx of Epilepsy since age 11. Had previously followed with Epilepsy team at [facility], however insurance changed. Home AEDs: Lamictal 250mg BID, Zonegran 200mg qAM/300mg qPM Acute respiratory failure with hypoxia (HCC) 10/06/2024 - Present Yes Current Assessment AND Plan In setting of generalized seizure - Intubated at outside ED for airway protection - 10/07 extubated Plan: - Fu CXR - Fu ABG - airway watch On mechanically assisted ventilation (HCC) 10/06/2024 - Present Yes Current Assessment AND Plan Intubated for airway protection in setting of seizure and acute hypoxic respiratory failure at outside ED. Plan: - Extubated on 10/07 - Aspiration precaution - Airway watch - Cepacol lozenges for sore throat Myasthenia gravis (HCC) 10/06/2024 - Present Yes Current Assessment AND Plan -Without exacerbation -AChR + -Outpatient Ultomiris injections - Monitor daily NIF, FVC Hx of migraines 10/06/2024 - Present Yes Generalized anxiety disorder 10/06/2024 - Present Yes Current Assessment AND Plan - Continue home Lexapro Lactic acidosis 10/07/2024 - Present Yes Current Assessment AND Plan Mild Lactic acidosis of 2.3 in setting of seizures Plan: - IVF resuscitation - Trend lactate - monitor off Abx in absence of fever, negative CXR/UA Hypokalemia 10/07/2024 - Present Yes Current Assessment AND Plan -Replace PRN Leukocytosis 10/07/2024 - Present Yes Current Assessment AND Plan 16.47K, suspect reactive in setting of seizures Monitor for signs of developing aspiration Plan: - Trend CBC - IVF - UA/CXR unremarkable - Check sputum cx given excess secretions - Monitor off abx for now. Watch for fevers Medication and Non-Pharmacologic VTE Prophylaxis/Anticoagulants Anticoagulant AND Antiplatelet Medications (From admission, onward) Start Dose Route Frequency Last Action Ordered Stop 10/06/24 2330 enoxaparin 40 mg injection (LOVENOX) (Medical Risk Categories) 40 mg SQ EVERY 24 HOURS Given, 10/076 10/06/24 2320 -- VTE Prophylaxis: VTE prophylaxis appropriate Plan of care discussed with: Provider, RN, Patient This patient has a high probability of sudden, clinically significant deterioration, which requires the highest level of provider preparedness to intervene urgently. I managed/supervised life or organ supporting interventions that required frequent provider assessment. I devoted my full attention to the direct care of this patient for the amount of time indicated below. Time I spent with family or surrogate(s) is included only if the patient was incapable of providing the necessary information or participating in medical decision making. Time devoted to teaching and to any procedures I billed separately is not included. Critical Care Documentation: The patient has the following organ/system impairment(s): Complex life-threatening medical problem(s), Respiratory failure (Acute and/or Chronic), acute neurologic event and/or Severe electrolyte imbalance. Part of my note may have been copied from previous documentation. It has been reviewed and is accurate. Critical care time spent with patient: 35 mins SIGNATURE: Karen Crisostomo APRN.CNP PATIENT NAME: Doug Flanagan DATE: October 08, 2024 TIME: 12:55 AM 1005 CBC PNL BLD AUTO Collected: 10/07/2024 10:57 AM Stat us: F Source: [facility] Order Comment: Specimen Type : BLOOD SPECIMEN Ordering Facility: [facility] Address: [address] [place] [address] TYPE CODE TESTS RESULT OUT OF RANGE REFERENCE UNITS LAB 6690-2(LOINC) WBC # Bld Auto 13.98 High 3.70-11.00 k/uL LAB 789-8(LOINC) RBC # Bld Auto 4.11 3.90-5.20 m/ uL LAB 718-7(LOINC) Hgb Bld-mCnc 12.2 11.5-15.5 g/dL LAB 4544-3(LOINC) Hct VFr Bld Auto 36.4 36.0-46.0 % LAB 787-2(LOINC) MCV RBC Auto 88.6 80.0-100.0 fL LAB 785-6(LOINC) MCH RBC Qn Auto 29.7 26.0-34.0 pg LAB 786-4(LOINC) MCHC RBC Auto-mCnc 33.5 30.5-36.0 g/dL LAB 92621-2(LOINC) RDW RBC-Rto 13.2 11.5-15.0 % LAB 777-3(LOINC) Platelet # Bld Auto 201 150-400 k/uL LAB 56850-0(LOINC) PMV Bld Auto 9.1 9.0-12.7 fL LAB 771-6(LOINC) nRBC # Bld Auto <0.01 <0.01 k/uL Performed By: #### 58117-7 # ### [facility] CLIA [id number] [address] [place] [address] [place] METAB 2000 PNL SERPL Collected: 10/2024 10:57 AM Status: F Source: [facility] Order Comment: Specimen Type : BLOOD SPECIMEN Ordering Facility: [facility] Address: [address] [place] [address] TYPE CODE TESTS RESULT OUT OF RANGE REFERENCE UNITS LAB 2345-7(LOINC) Glucose SerPl-mCnc 96 74-99 mg/dL Result Comment: The [place] Diabetes Association (ADA) provides guidance for cutoff values for fasting glucose and random glucose. The ADA defines fasting as no caloric intake for at least 8 hours. Fasting plasma glucose results between 100 to 125 mg/dL indicate increased risk for diabetes (prediabetes). Fasting plasma glucose results greater than or equal to 126 mg/dL meet the criteria for diagnosis of diabetes. In the absence of unequivocal hyperglycemia, results should be confirmed by repeat testing. In a patient with classic symptoms of hyperglycemia or hyperglycemic crisis, random plasma glucose results greater than or equal to 200 mg/dL meet the criteria for diagnosis of diabetes. Reference: Standards of Medical Care in Diabetes 2016, [place] [employer]. Diabetes Care. 2016.39(Suppl 1). LAB 3094-0(LOINC) BUN SerPl-mCnc 4 Low 7-21 mg/ dL LAB 2160-0(LOINC) Creat SerPl-mCnc 0.57 Low 0.58-0.96 mg/dL LAB 2951-2(LOINC) Sodium SerPl-sCnc 143 136-144 mmol/L LAB 2823-3(LOINC) Potassium SerPl-sCnc 3.3 Low 3.7-5.1 mmol/L LAB 2075-0(LOINC) Chloride SerPl-sCnc 110 High 98-107 mmol/L LAB 2028-9(LOINC) CO2 SerPl-sCnc 22 22-30 mmo l/L LAB 1863-0(LOINC) Anion Gap4 SerPl-sCnc 11 8-15 mmol/L LAB 63573-3(LOINC) Calcium SerPl-mCnc 8.8 8.5-10.2 mg/dL LAB 83807-7(LOINC) Creatinine + eGFR Pnl SerPlBld 121 >=60 mL/min/1. 73m??? Result Comment: Estimated Gl omerular Filtration Rate (eGFR) is calculated using the 2020 CKD-EPI creatinine equation. This equation utilizes serum creatinine, sex, and age as parameters. The creatinine assay has traceable calibration to isotope dilution-mass spectrometry. Refer to KDIGO guidelines for clinical interpretation. In patients with unstable renal function, e.g. those with acute kidney injury, the eGFR may not accurately reflect actual GFR. Performed By: #### 03670-3, 2777-1, 64777-2 #### [facility] CLIA [id number] [address] MAGNESIUM SERPL-MCNC Collected: 10/07/2024 10:57 AM Status: F Source: [facility] Order Comment: Specimen Type : BLOOD SPECIMEN Ordering Facility: [facility] Address: [address] [place] [address] TYPE CODE TESTS RESULT OUT OF RANGE REFERENCE UNITS LAB 41119-7(LOINC) Magnesium SerPl-mCnc 1.7 1.7-2.3 mg/dL Performed By: #### 26517-4, 2777-1, 26926-8 #### [facility] CLIA [id number] [address] PHOSPHATE SERPL-MCNC Collected: 10/07/2024 10:57 AM Status: F Source: [facility] Order Comment: Specimen Type : BLOOD SPECIMEN Ordering Facility: [facility] Address: [address] [place] [address] TYPE CODE TESTS RESULT OUT OF RANGE REFERENCE UNITS LAB 2777-1(LOINC) Phosphate SerPl-mCnc 3.2 2.7-4.8 mg/dL Performed By: #### 91583-0, 2777-1, 65343-3 #### [facility] CLIA [id number] [address] XR ABDOMEN 1V SUPINE Observed: 10:37 AM Status: F Source: [facility] * * *Final Report* * * DATE OF EXAM: Oct 07 2024 10:37AM AKX [id number] - XR ABDOMEN 1V SUPINE / PROCEDURE REASON: Abdominal pain * * * * Physician Interpretation * * * * ABDOMINAL RADIOGRAPH CLINICAL INDICATION: Abdominal pain COMPARISON: 04/01/2022 FINDINGS: Supine frontal view of the abdomen. Mild gaseous distention of the splenic flexure, descending and sigmoid colon. No small bowel distention. IUD is present in the central pelvis. IMPRESSION: Mild gaseous distention of the left colon as described. No small bowel distention. Home Health Clinician: [facility] Transcribe Date/Time: Oct 07 2024 10:53A Dictated by : OLIVIA DALEY MD This examination was interpreted and the report reviewed and electronically signed by: OLIVIA DALEY MD on Oct 07 2024 10:54AM EST [id number] THERAPY NT Observed: 10/07/2024 9:02 AM Status: COMPLETED Source: [facility] HNO ID: [id number] Author: LESLY SANTOS RRT Service: Respiratory Therapy Author Type: Registered Resp Therapist Type: Therapy (PT/OT/Speech/Resp) Filed: 10/07/2024 09:02 Note Text: 10/07/24 0901 Extubation Parameters $Extubation Parameters $Extubation Parameters Performed Spontaneous Respiratory Rate (BPM) 23 Spontaneous Minute Volume (L/min) 14.6 Spontaneous Tidal Volume (mL) 600 Rapid Shallow Breathing Index (RSBI) 38.33 Forced Vital Capacity (L) 1.5 Negative Inspiratory Force (cm H2O) -27 Diaphoretic/Agitated N (some agitation d/t choking on ETT) Suctioning Less Frequent Than Q2H Y Cuff Leak Y Adequate Cough/Gag Reflex Y RESPIRATORY THERAPY PROGRESS NOTE SERVICE DATE: 10/07/2024 SERVICE TIME: SIGNATURE: Lesly Santos RRT PATIENT NAME: Doug Flanagan DATE: October 07, 2024 TIME: 9:02 AM PAGER/CONTACT #: THERAPY NT Observed: 10/07/2024 8:55 AM Status: COMPLETED Source: [facility] HNO ID: [id number] Author: LESLY SANTOS RRT Service: Respiratory Therapy Author Type: Registered Resp Therapist Type: Therapy (PT/OT/Speech/Resp) Filed: 10/07/2024 08:56 Note Text: 10/07/24 0845 Daily Spontaneous Breathing Trial (SBT) Per nursing, SAT passed Yes ALL Criteria Met for Successful Wean Screen $Yes, SBT performed per RT protocol Time SBT Started 45 RESPIRATORY THERAPY PROGRESS NOTE SERVICE DATE: 10/07/2024 SERVICE TIME: SIGNATURE: Lesly Santos RRT PATIENT NAME: Doug Flanagan DATE: October 07, 2024 TIME: 8:55 AM PAGER/CONTACT #: ECG COMPLETE Observed: 10/07/2024 6:31 AM Status: F Source: [facility] Ventricular Rate : 90 BPM Atrial Rate : 90 BPM P-R Interval : 178 ms QRS Duration : 84 ms Q-T Interval : 358 ms QTC Calculation(Bazett) : 437 ms Calculated P [place] : 53 degrees Calculated R [place] : 48 degrees Calculated T [place] : -23 degrees NORMAL SINUS RHYTHM T WAVE ABNORMALITY, CONSIDER INFERIOR ISCHEMIA T WAVE ABNORMALITY, CONSIDER ANTEROLATERAL ISCHEMIA ABNORMAL ECG WHEN COMPARED WITH ECG OF 17-Dec-2016 16:04, T WAVE INVERSION NOW EVIDENT IN INFERIOR LEADS T WAVE INVERSION NOW EVIDENT IN ANTEROLATERAL LEADS Confirmed by MD KINGSTON YASSAR ([id number]) on 10/09/2024 4:46:55 PM NAME : DOUG FLANAGAN PID : [id number] : 1990 Gender : Female Race : ORD : [id number] Procedure Date : Oct 07 2024 06:31:02 Edit Date : Oct 09 2024 16:46:57 Diagnosis: NORMAL SINUS RHYTHM T WAVE ABNORMALITY, CONSIDER INFERIOR ISCHEMIA T WAVE ABNORMALITY, CONSIDER ANTEROLATERAL ISCHEMIA ABNORMAL ECG WHEN COMPARED WITH ECG OF 17-Dec-2016 16:04, T WAVE INVERSION NOW EVIDENT IN INFERIOR LEADS T WAVE INVERSION NOW EVIDENT IN ANTEROLATERAL LEADS Confirmed by MD KINGSTON YASSAR ([id number]) on 10/09/2024 4:46:55 PM Test Reason : Check QT Location : 200 : [facility] 3208 Overread By : MD KINGSTON YASSAR Edited By : MD KINGSTON YASSAR Referred By : ANGELLA GARNETT Acquired by : DUSTIN DUFF BACTERIA SPEC RESP CULT Observed: 2024 6:27 AM Status: F Source: [facility] CULTURE, RESPIRATORY: Moderate Normal respiratory mary present ORGANISM ID: 1 Rare Staphylococcus aureus Insignificant colony count. No further workup. GRAM STAIN: Few Mixed oral mary Few Polymorphonuclear leukocytes Performed By: #### 82906-2 # ### [facility] CLIA [id number] 1 [place] [id number] [place] + [place] PNL BLDV Collected: 10/07/2024 4:26 AM Stat us: F Source: [facility] Order Comment: Specimen Type : VENOUS BLOOD SPECIMEN Ordering Facility: [facility] Address: [address] [place] [address] TYPE CODE TESTS RESULT OUT OF RANGE REFERENCE UNITS LAB 2746-6(LOINC) pH BldV 7.29 Low 7.32-7.42 LAB 2020-4(LOINC) pCO2 BldV 45 42-55 mmHg LAB 2705-2(LOINC) pO2 BldV 68 High 35-45 mmHg LAB 2711-0(LOINC) SaO2 % BldV 92 High 60-85 % LAB BDVEN BASE DEFICIT, VENOUS -6 Low -2-0 mmol/L LAB 87968-4(LOINC) HCO3 BldV-sCnc 21 Low 24-28 mm ol/L LAB 2716-9(LOINC) OxyHgb MFr BldV 89 High 60-85 % LAB 2032-1(LOINC) COHgb MFr BldV 1.6 0.0-2.0 % Result Comment: Carboxyhemog lobin Reference Range for Smokers: 2.0-8.0% LAB 2614-6(LOINC) MetHgb MFr Bld 1.0 0.0-1.5 % LAB 2947-0(LOINC) Sodium Bld-sCnc 142 136-144 mm ol/L LAB 6298-4(LOINC) Potassium Bld-sCnc 3.7 3.5-5.0 mmol/L LAB CHLWBBG CHLORIDE WHOLE BLOOD 108 High 97-105 mmol/L LAB 87475-2(LOINC) Ca-I BldV-mCnc 1.23 1.08-1.30 mmol/L LAB 86600-0(LOINC) Ca-I adj pH7.4 BldA-sCnc 1.15 1.08-1.30 mmol/L LAB 2339-0(LOINC) Glucose Bld-mCnc 106 High 60-105 mg/dL LAB 88496-2(LOINC) Lactate Bld-sCnc 1.4 0.5-2.2 mmol/L LAB 718-7([facility]) Hgb Bld-mCnc 12.7 11.5-15.5 g/dL LAB 4544-3([facility]) Hct VFr Bld Auto 39.0 36.0-46.0 % LAB VTMP TEMPERATURE, BODY 37.0 C LAB FIO2BG FIO2 30 % LAB VO2TH O2 THERAPY VENT=Venti lator LAB SETVENTBG SET VENTILATOR RESPIRATORY RATE (BPM) 14 BPM LAB INHTDVBG INHALED TIDAL VOLUME (ML) 320 LAB PEEPBG PEEP/CPAP 5 cmH2O Performed By: #### 85514-1 # ### [facility] CLIA [id number] [address] HISTORY PHYSICAL Observed: 10/07/2024 12:37 AM Status: COMPLETED Source: [facility] HNO ID: [id number] Author: JOHAN ARITA MD Service: Neurology ICU Author Type: Physician Type: H&P Filed: 10/07/2024 15:45 Note Text: SERVICE DATE: 10/07/2024 SERVICE TIME: 12:37 AM NEUROLOGICAL INTENSIVE CARE UNIT HISTORY AND PHYSICAL REASON FOR ADMISSION: Status Epilepticus Subjective HPI: Patient is a 34 year old female with past medical history significant for Myasthenia Gravis, migraines, Epilepsy, and generalized anxiety disorder who presents as transfer from [facility] with complaint of breakthrough seizure/status epilepticus. Per chart review, patient had called her mom shortly after noon noting that she needed help. She seemed confused and post ictal on the phone so her mom thought she had another seizure. Patient's mom went to check on her and noted she was post-ictal longer than normal despite administering intranasal diazepam, therefore EMS called. In ED at [place], patient reportedly returned to baseline but then began to seize again, promptingativan administration and intubation for airway protection. CT brain negative. Labs, UA unremarkable. No reported trauma. Per patient's mother, compliant with meds, no missed doses. Patient subsequently transferred here for further management of seizures. 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 Traumatic brain injury (HCC) ~ 9 years of age Fell off the monkey bars; lost consciousness 3-5 minutes PAST SURGICAL HISTORY Procedure Laterality Date APPENDECTOMY COLONOSCOPY 04/08/2022 No repeat due to age CONIZATION OF CERVIX; COLD KNIFE/LASER 10/17/2021 Paragard removal, Mirena IUD insertion HIP SURGERY HX Right INSJ TUNNELED CTR VAD W/SUBQ PORT AGE 3 YR/> 10/16/2020 LEEP PROCEDURE (DIRECTOR OF QUANTITATIVE RESEARCH DEPT)_*FL THYMECTOMY, PARTIAL/TOTAL total FAMILY HISTORY Problem Relation Age of Onset Headache Mother Multiple Sclerosis Sister Headache Maternal Grandfather Seizures Maternal Aunt Traumatic epilepsy Colon Cancer No Family History ALLERGIES Allergen Reactions Ciprofloxacin Mental Status Change Compazine [Prochlor* Intolerance Dilantin [Phenytoin] Mental Status Change Hallucination, vomiting Iodides Other: See Comments Pt states she can have a seizure with sea food but has had CT with dye without any problem on numerous occasions Keppra [Levetiracet* Mental Status Change, Other: See Comments Hallucinations, suicidal thoughts Penicillins Rash Shellfish Containin* Other: See Comments Soy Protein Other: See Comments PRIOR TO ADMISSION MEDICATIONS: benzonatate (TESSALON PERLES) 100 mg capsule, Take 1 capsule by mouth three times daily as needed for cough., Disp: 14 capsule, Rfl: 0 ravulizumab-cwvz (ULTOMIRIS) 100 mg/mL injection, as directed Intravenous, Disp: , Rfl: lamoTRIgine ER (LAMICTAL XR) 250 mg 24 hr tablet, , Disp: , Rfl: peg 3350-Electrolytes (GOLYTELY) 236-22.74-6.74 -5.86 gram suspension, Sip on it until gone (Patient not taking: Reported on 07/12/2022), Disp: 4000 mL, Rfl: 0 diazePAM (VALTOCO) 10 mg/spray (0.1 mL) nasal spray, as directed., Disp: , Rfl: escitalopram oxalate (LEXAPRO) 10 mg tablet, Take 10 mg by mouth once daily., Disp: , Rfl: apixaban (ELIQUIS) 5 mg tab(s), Take 5 mg by mouth twice daily., Disp: , Rfl: rOPINIRole (REQUIP) 0.5 mg tablet, take 1 tablet by mouth 1-3 HOURS PRIOR TO BEDTIME, Disp: , Rfl: OXcarbazepine (TRILEPTAL) 150 mg tablet, Take 150 mg by mouth daily at bedtime., Disp: , Rfl: LORazepam (ATIVAN) 1 mg tablet, take 1 tablet by mouth if needed for SEIZURE GERATER THAN 5 MINUTES DIRECTED (FOR 30 DAYS), Disp: , Rfl: levonorgestrel (MIRENA) 20 mcg/24 hours (8 yrs) 52 mg IUD, 1 Each by INTRAUTERINE route one time only., Disp: , Rfl: lamoTRIgine ER (LAMICTAL XR) 100 mg 24 hr tablet, Take two (2.0) in AM and four(4.0) tablets at bedtime (Patient taking differently: Take two (1) in AM and four(4.0) tablets at bedtime), Disp: 540 tablet, Rfl: 1 zonisamide (ZONEGRAN) 100 mg capsule, Take 3 capsules by mouth once daily., Disp: 270 capsule, Rfl: 1 acetaminophen (TYLENOL) 325 mg tablet, Take 650 mg by mouth every 6 hours as needed., Disp: , Rfl: Social History Tobacco Use Smoking status: Never Smokeless tobacco: Never Vaping Use Vaping status: Never Used Substance Use Topics Alcohol use: No Drug use: No Employer And Job Title: [employer] (OPTICAL [employer]) Years Of Education Completed: 14 years Marital Status: Single with 1 child REVIEW OF SYSTEMS: Unable to obtain as patient is currently intubated, mechanically ventilated and sedated Objective Vital Signs (Last 24hrs min/max): BP 122/75 Pulse 78 Temp 36.6 ?C (97.9 ?F) (Oral) Resp 14 Ht 157.5 cm (5' 2") Wt 71.9 kg (158 lb 8.2 oz) LMP 03/18/2022 SpO2 99% BMI 28.99 kg/m? PHYSICAL EXAM: NEUROLOGICAL: Awake on 35mcg of propofol. Attends to provider. PERRL. Midline gaze. Able to squeeze hands and attempt a thumbs up on the right to command. GCS: Eyes: 4. Spontaneous Verbal: T: Intubated Motor: 6: Obeys Motor commands Total: 11T MOTOR STRENGTH: Unable to formally test strength, however moving all extremities, antigravity SENSATION: Intact light touch CV: RRR Pulm: CTA bilaterally, even and unlabored on vent support. GI/: Abdomen soft, non tender Skin/Extremities: Edema- No Peripheral pulses- Present all extremities Wounds/Drsgs- No DATA: Diagnostic tests reviewed for today's visit: Most recent labs and imaging results. Personally reviewed Lines, Drains, and Airways Line Duration Implanted Vascular Access Device Single Port 10/06/242299 Right Chest <1 day Peripheral 10/06/242299 Left Antecubital 18 Gauge <1 day Drain Duration Indwelling Urinary Catheter 10/06/242299 [facility] <1 day Airway Duration Airway Endotracheal Tube 10/06/242299 <1 day PERSONAL INVOLVEMENT IN CARE: Reviewing initiation, responses and adjustments to therapies, coordination of care, and updating family with Staff Physician, Dr. Arita. Assessment AND Plan Active Hospital Problems as of 10/07/2024 Noted - Resolved [facility] Acute respiratory failure with hypoxia (HCC) 10/06/2024 - Present Yes Current Assessment AND Plan In setting of generalized seizure - Intubated at outside ED for airway protection Plan: - Fu CXR - Fu ABG - Wean sedation and WTE if continues to clinically improved and confirmed seizure free by EEG Breakthrough seizure (HCC) 10/06/2024 - Present Yes Current Assessment AND Plan See "Status Epilepticus" Epilepsy (HCC) 10/06/2024 - Present Yes Current Assessment AND Plan Hx of Epilepsy since age 11. Had previously followed with Epilepsy team at [facility], however insurance changed. Home AEDs: Lamictal 250mg BID, Zonegran 200mg qAM/300mg qPM Generalized anxiety disorder 10/06/2024 - Present Yes Current Assessment AND Plan - Continue home Lexapro Hx of migraines 10/06/2024 - Present Yes Hypokalemia 10/07/2024 - Present Yes Current Assessment AND Plan -Replace PRN Lactic acidosis 10/07/2024 - Present Yes Current Assessment AND Plan Mild Lactic acidosis of 2.3 in setting of seizures Plan: - IVF resuscitation - Trend lactate - monitor off Abx in absence of fever, negative CXR/UA Leukocytosis 10/07/2024 - Present Yes Current Assessment AND Plan 16.47K, suspect reactive in setting of seizures Monitor for signs of developing aspiration Plan: - Trend CBC - IVF - UA/CXR unremarkable - Check sputum cx given excess secretions - Monitor off abx for now. Watch for fevers Myasthenia gravis (HCC) 10/06/2024 - Present Yes Current Assessment AND Plan -Without exacerbation -AChR + -Outpatient Ultomiris injections - Monitor daily NIF, FVC On mechanically assisted ventilation (HCC) 10/06/2024 - Present Yes Current Assessment AND Plan Intubated for airway protection in setting of seizure and acute hypoxic respiratory failure at outside ED. Plan: - D/c Versed gtt - Propofol gtt for sedation and titrate pending adequate sedation and/or continued seizures on EEG - Wean sedation and WTE once seizure free on EEG * (Principal) Status epilepticus ([facility]) 10/06/2024 - Present Yes Current Assessment AND Plan Aura at home followed by full generalized seizure activity witnessed by family. Home PRN rescue intranasal diazepam administered Returned to baseline in ED, however, then seized again requiring Ativan administration and intubation for airway protection - CT brain unremarkable - Propofol bolus given followed by Versed gtt A 1mg/hr Plan: - D/c Versed gtt - Continued propofol gtt - PRN fentanyl pushes - cEEG - Check Lamictal and zonisamide level - Continue home Lamictal 250mg PO BID and zonisamine 200mg qAM/300mg qPM for now. Further adjustments pending cEEG findings. - Fu labs to evaluate, r/o underlying infectious or metabolic etiology for breakthrough seizure - TSH WNL at OSH - UA, Utox negative at outside hospital - MRI wwo contrast Medication and Non-Pharmacologic VTE Prophylaxis/Anticoagulants Anticoagulant AND Antiplatelet Medications (From admission, onward) Start Dose Route Frequency Last Action Ordered Stop 10/06/24 2330 enoxaparin 40 mg injection (LOVENOX) (Medical Risk Categories) 40 mg SQ EVERY 24 HOURS Ordered 10/06/24 2320 -- VTE Prophylaxis: VTE prophylaxis appropriate This patient has a high probability of sudden, clinically significant deterioration, which requires the highest level of provider preparedness to intervene urgently. I managed/supervised life or organ supporting interventions that required frequent provider assessment. I devoted my full attention to the direct care of this patient for the amount of time indicated below. Time I spent with family or surrogate(s) is included only if the patient was incapable of providing the necessary information or participating in medical decision making. Time devoted to teaching and to any procedures I billed separately is not included. Critical Care Documentation: The patient has the following organ/system impairment(s): Complex life-threatening medical problem(s), Respiratory failure (Acute and/or Chronic), acute neurologic event and/or Severe electrolyte imbalance. Part of my note may have been copied from previous documentation. It has been reviewed and is accurate. Critical care time spent with patient: 45 mins SIGNATURE: Amanda Naranjo PA-C PATIENT NAME: Doug Flanagan DATE: October 07, 2024 TIME: 12:37 AM THE NEURO ICU MANAGEMENT OF THIS PATIENT WAS DISCUSSED WITH THE NSICU TEAM UNDER DR. Arita I have reviewed the progress note obtained and documented by the physician legal document assistant, Amanda Naranjo. I personally participated in the brennan components. I have discussed the management of the patient's care. The following comments revise or confirm relevant brennan components of the note. I have repeated the examination and confirm the findings except as documented. PATIENT PROBLEMS I REVIEWED, REVISED AND/OR INITIATED: The care of this patient required my full attention and direct personal management of: Principal Problem: Status epilepticus (HCC) Active Problems: Breakthrough seizure (HCC) Epilepsy (HCC) Acute respiratory failure with hypoxia (HCC) On mechanically assisted ventilation (HCC) Myasthenia gravis (HCC) Hx of migraines Generalized anxiety disorder Lactic acidosis Hypokalemia Leukocytosis Resolved Problems: * No resolved hospital problems. * Principal Problem: Status epilepticus (HCC) (POA: Yes) Date Noted: 10/06/2024 Active Problems: Breakthrough seizure (HCC) (POA: Yes) Date Noted: 10/06/2024 Epilepsy (HCC) (POA: Yes) Date Noted: 10/06/2024 Acute respiratory failure with hypoxia (HCC) (POA: Yes) Date Noted: 10/06/2024 On mechanically assisted ventilation (HCC) (POA: Yes) Date Noted: 10/06/2024 Myasthenia gravis (HCC) (POA: Yes) Date Noted: 10/06/2024 Hx of migraines (POA: Yes) Date Noted: 10/06/2024 Generalized anxiety disorder (POA: Yes) Date Noted: 10/06/2024 Lactic acidosis (POA: Yes) Date Noted: 10/07/2024 Hypokalemia (POA: Yes) Date Noted: 10/07/2024 Leukocytosis (POA: Yes) Date Noted: 10/07/2024 ==== STAFF COORDINATION OF CRITICAL CARE [facility] Staff Physician note of personal involvement in Care The patient is critically ill because of imminent risk of acute respiratory failure and uncontrolled seizures, hypoxia, and hypotension and continues to require intensive support and observation. This patient has a high probability of sudden, clinically significant deterioration, which requires the highest level of physician preparedness to intervene urgently. I managed/supervized life or organ supporting interventions that required frequent physician assessment. I devoted my full attention to the direct care of this patient for the amount of time indicated below. Time I spent with family or surrogate(s) is included only if the patient was incapable of providing the necessary information or participating in medical decision making. Time devoted to teaching or to any procedures I billed separately is not included. ==== PLAN, IMPRESSION AND ACTION(S) TAKEN Ms. Flanagan is a 34 y.o. woman with a pmh of seizures, myasthenia Gravis, TBI, migraines, Epilepsy, and Gen Anxiety D.O. She is now admtited to the NSICU for close observation and management of status epilepticus. Pt. had been intubated at the outside hospital due to loss of airway protection after receiving ativan IV for mangement of status epilepticus. EEG here--> no seizures. Mental status improved. U/a unremarkable, TSH pending. Pt. extubated this am and is stable. Assessment and Plan: - Neuro status improved and seizures appear to be under control - Continuing her lamictal and Zonagran for sz prophylaxis. - check drug levels. - Ultomiris for MG - Pt. with hypoactive bowel d.o. - adjust to a soft diet due to bowel d.o. - check o[facility] record for u/a, utox, and tsh - all reportedly unremarkable - Follow leukocytosis clinically - likely secondary to seizures, as there are no signs of infection Please see the documented [id number] plan in the updated problem list. Plan of care discussed with: Provider, Patient, Family/Significant Other: mother, ICU Team, and RN. Johan Arita MD Staff, Neurointensive Care [facility] Date of Service: 10/07/2024 Time of Service: 1:24 PM This is an electronically created document. If printed, please do not remove from the chart or modify printed copy. XR CHEST 1V FRONTAL PORT Observed: 10/07 12:09 AM Status: F Source: [facility] * * *Final Report* * * DATE OF EXAM: Oct 07 2024 12:09AM AKX [id number] - XR CHEST 1V FRONTAL PORT / PROCEDURE REASON: Evaluate tube, line, or lead position * * * * Physician Interpretation * * * * Procedure: XR CHEST 1V FRONTAL PORT CLINICAL HISTORY: Evaluate tube, line, or lead position Comparison: Outside chest x-ray same day, chest x-ray on 12/22/2021 RESULT: Lines, tubes, and devices: Partially visualized right IJ chest port with the tip near the cavoatrial junction. Endotracheal tube is approximately 1 cm above the hanna. Enteric tube tip terminates at the peripyloric stomach with the side-port past the GE junction. Cardiomediastinal silhouette: Unchanged. Lungs and pleura: No consolidation. No visible pleural effusion or pneumothorax. Bones and soft tissues: No acute abnormality. IMPRESSION: 1. Lines and tubes as described. Recommend retraction of the endotracheal tube by 1 cm for optimal positioning. Home Health Clinician: SELENA Transcribe Date/Time: Oct 07 2024 1:49A Dictated by : MOO LANDRY DO This examination was interpreted and the report reviewed and electronically signed by: MOO LANDRY DO on Oct 07 2024 1:51AM EST [id number] STAPHYLOCOCCUS AUREUS AND MR SA SCREEN, PCR, NASAL Collected: 10/06/2024 11:45 PM Status: F Source: [facility] Order Comment: Specimen Type : SWAB Ordering Facility: [facility] Address: [address] [place] [address] TYPE CODE TESTS RESULT OUT OF RANGE REFERENCE UNITS LAB 08881-2(LOINC) SA+MRSA Pnl Nose CHRISTIANO+probe Not Detected Not Detected Performed By: #### SAPCR ### # [facility] CLIA [id number] [address] [place] [address] [place] CBC W AUTO DIFF BLD Collected: 10/06/2024 11:43 PM S tatus: F Source: [facility] Order Comment: Specimen Type : BLOOD SPECIMEN Ordering Facility: [facility] Address: [place] [address] TYPE CODE TESTS RESULT OUT OF RANGE REFERENCE UNITS LAB 6690-2([facility]) WBC # Bld Auto 16.47 High 3.70-11.00 k/uL LAB 789-8([facility]) RBC # Bld Auto 4.46 3.90-5.20 m/ uL LAB 718-7([facility]) Hgb Bld-mCnc 13.1 11.5-15.5 g/dL LAB 4544-3([facility]) Hct VFr Bld Auto 40.7 36.0-46.0 % LAB 787-2([facility]) MCV RBC Auto 91.3 80.0-100.0 fL LAB 785-6([facility]) MCH RBC Qn Auto 29.4 26.0-34.0 p g LAB 786-4([facility]) MCHC RBC Auto-mCnc 32.2 30.5-36.0 g/dL LAB 05568-1([facility]) RDW RBC-Rto 12.8 11.5-15.0 % LAB 777-3([facility]) Platelet # Bld Auto 225 150-400 k/uL LAB 90035-0([facility]) PMV Bld Auto 9.0 9.0-12.7 fL LAB 770-8([facility]) Neutrophils/leuk NFr Bld Auto 93.6 % LAB 751-8([facility]) Neutrophils # Bld Auto 15.41 High 1.45-7.50 k/uL LAB 736-9([facility]) Lymphocytes/leuk NFr Bld Auto 3.3 % LAB 731-0([facility]) Lymphocytes # Bld Auto 0.55 Low 1.00-4.00 k/uL LAB 5905-5([facility]) Monocytes/leuk NFr Bld Auto 2.5 % LAB 742-7([facility]) Monocytes # Bld Auto 0.41 <0.87 k/uL LAB 713-8([facility]) Eosinophil/leuk NFr Bld Auto 0.0 % LAB 711-2([facility]) Eosinophil # Bld Auto <0.03 <0.46 k/uL LAB 706-2([facility]) Basophils/leuk NFr Bld Auto 0.1 % LAB 704-7([facility]) Basophils # Bld Auto <0.03 <0.11 k/uL LAB 27895-1([facility]) Imm Granulocytes/nara k NFr Bld Auto 0.5 % LAB 29041-9([facility]) Imm Granulocytes # Bld Auto 0.08 <0.10 k/uL LAB 24903-9([facility]) nRBC/100 WBC Bld-Rto 0.0 /100 WBC LAB 771-6([facility]) nRBC # Bld Auto <0.01 <0.01 k/u L LAB 43069-4([facility]) Differential method Bld Auto Performed By: #### 31097-0 # ### [facility] CLIA [id number] [address] STATES OF [facility] COMP METAB 2000 PNL SERPL Collected: 11:43 PM Status: F Source: [facility] Order Comment: Specimen Type : BLOOD SPECIMEN Ordering Facility: [facility] Address: [address] [place] [address] TYPE CODE TESTS RESULT OUT OF RANGE REFERENCE UNITS LAB 2885-2([facility]) Prot SerPl-mCnc 6.4 6.3-8.0 g/dL LAB 1751-7(INC) Albumin SerPl-mCnc 4.0 3.9-4.9 g/dL LAB 98282-1(INC) Calcium SerPl-mCnc 8.6 8.5-10.2 mg/dL LAB 1975-2(INC) Bilirub SerPl-mCnc 0.3 0.2-1.3 mg/dL LAB 6768-6([facility]) ALP SerPl-cCnc 88 34-123 U/L LAB 78268-6(INC) AST SerPl w P-5'-P-cCnc 18 13-35 U/L LAB 1743-4(LOINC) ALT SerPl w P-5'-P-cCnc 16 7-38 U/L LAB 2345-7(INC) Glucose SerPl-mCnc 128 High 74-99 mg/dL Result Comment: The [place] [employer] Association (ADA) provides guidance for cutoff values for fasting glucose and random glucose. The ADA defines fasting as no caloric intake for at least 8 hours. Fasting plasma glucose results between 100 to 125 mg/dL indicate increased risk for diabetes (prediabetes). Fasting plasma glucose results greater than or equal to 126 mg/dL meet the criteria for diagnosis of diabetes. In the absence of unequivocal hyperglycemia, results should be confirmed by repeat testing. In a patient with classic symptoms of hyperglycemia or hyperglycemic crisis, random plasma glucose results greater than or equal to 200 mg/dL meet the criteria for diagnosis of diabetes. Reference: Standards of Medical Care in Diabetes 2016, [place] [employer] Association. Diabetes Care. 2016.39(Suppl 1). LAB 3094-0(LOINC) BUN SerPl-mCnc 5 Low 7-21 mg/ dL LAB 2160-0(LOINC) Creat SerPl-mCnc 0.59 0.58-0.96 mg/dL LAB 2951-2(LOINC) Sodium SerPl-sCnc 139 136-144 mmol/L LAB 2823-3(LOINC) Potassium SerPl-sCnc 3.5 Low 3.7-5.1 mmol/L LAB 2075-0(LOINC) Chloride SerPl-sCnc 107 98-107 mmol/L LAB 2028-9(LOINC) CO2 SerPl-sCnc 17 Low 22-30 mmo l/L LAB 1863-0(LOINC) Anion Gap4 SerPl-sCnc 15 8-15 mmol/L LAB 93016-0(LOINC) Creatinine + eGFR Pnl SerPlBld 120 >=60 mL/min/1. 73m??? Result Comment: Estimated Gl omerular Filtration Rate (eGFR) is calculated using the 2020 CKD-EPI creatinine equation. This equation utilizes serum creatinine, sex, and age as parameters. The creatinine assay has traceable calibration to isotope dilution-mass spectrometry. Refer to KDIGO guidelines for clinical interpretation. In patients with unstable renal function, e.g. those with acute kidney injury, the eGFR may not accurately reflect actual GFR. Performed By: #### 60473-7, 2777-1, 53204-8 #### [facility] CLIA [id number] [address] MAGNESIUM SERPL-MCNC Collected: 10/06/2024 11:43 PM Status: F Source: [facility] Order Comment: Specimen Type : BLOOD SPECIMEN Ordering Facility: [facility] Address: [address] [place] [address] TYPE CODE TESTS RESULT OUT OF RANGE REFERENCE UNITS LAB 03799-8(LOINC) Magnesium SerPl-mCnc 1.7 1.7-2.3 mg/dL Performed By: #### 69809-4, 2777-1, 62627-9 #### [facility] CLIA [id number] [address] [place] PHOSPHATE SERPL-MCNC Collected: 10/06/2024 11:43 PM Status: F Source: [facility] Order Comment: Specimen Type : BLOOD SPECIMEN Ordering Facility: [facility] Address: [address] [place] [address] TYPE CODE TESTS RESULT OUT OF RANGE REFERENCE UNITS LAB 2777-1(LOINC) Phosphate SerPl-mCnc 2.4 Low 2.7-4.8 mg/dL Performed By: #### 84695-7, 2777-1, 35556-4 #### [facility] CLIA [id number] [address] [place] CA-I SERPL-SCNC Collected: 11:43 PM Status: F Source: [facility] Order Comment: Specimen Type : BLOOD SPECIMEN Ordering Facility: [facility] Address: [address] [place] [address] TYPE CODE TESTS RESULT OUT OF RANGE REFERENCE UNITS LAB 04628-2(LOINC) Ca-I adj pH7.4 Bld-sCnc 1.13 1.08-1.30 mmol/L LAB 00482-5(LOINC) Ca-I BldV-mCnc 1.18 1.08-1.30 mmol/L Performed By: #### 1995-0 ## ## [facility] CLIA [id number] [address] [place] ZONISAMIDE SERPL-MCNC Collected: 2024 11:43 PM Status: F Source: [facility] Order Comment: Specimen Type : BLOOD SPECIMEN Ordering Facility: [facility] Address: [address] [place] [address] TYPE CODE TESTS RESULT OUT OF RANGE REFERENCE UNITS LAB 15573-2(LOINC) Zonisamide SerPl-mCnc 18.9 10.0-40.0 ug/mL Result Comment: This test wa s developed, and its performance characteristics determined by the [facility] Department of Pathology and Laboratory Medicine. It has not been cleared or approved by the FDA. The [facility] Department of Pathology and Laboratory Medicine is regulated under CLIA as qualified to perform high-complexity testing. This test is used for clinical purposes. It should not be regarded as investigational or for research. Performed By: #### 81874-2, 6948-4 #### [facility] CLIA [id number] [address] [place] [address] LAMOTRIGINE SERPL-MCNC Collected: 10/06 11:43 PM Status: F Source: [facility] Order Comment: Specimen Type : BLOOD SPECIMEN Ordering Facility: [facility] Address: [address] [place], [place] [address] TYPE CODE TESTS RESULT OUT OF RANGE REFERENCE UNITS LAB 6948-4(LOINC) lamoTRIgine SerPl-mCnc 6.7 1.0-13.0 ug/mL Result Comment: This test wa s developed, and its performance characteristics determined by the [facility] Department of Pathology and Laboratory Medicine. It has not been cleared or approved by the FDA. The [facility] Department of Pathology and Laboratory Medicine is regulated under CLIA as qualified to perform high-complexity testing. This test is used for clinical purposes. It should not be regarded as investigational or for research. Performed By: #### 49605-1, 6948-4 #### [facility] CLIA [id number] [address] [place] [address] [place] PT PNL PPP Collected: 11:43 PM Status: F Source: [facility] Order Comment: Specimen Type : BLOOD SPECIMEN Ordering Facility: [facility] Address: [address] [place] [address] TYPE CODE TESTS RESULT OUT OF RANGE REFERENCE UNITS LAB 5902-2(LOINC) Prothrombin time 11.5 9.7-13.0 sec LAB 6301-6(LOINC) INR PPP 1.1 0.9-1.3 Result Comment: Vitamin K An tagonist (VKA) Therapeutic Range: INR 2 to 3 (Target INR of 2.5) Note: For patients treated with VKA drugs, such as warfarin, the [place] [employer] 2012 Guideline recommends a therapeutic INR range of 2 to 3 (target INR of 2.5). This recommendation includes high-risk patients with antiphospholipid syndrome with previous arterial or venous thromboembolism, current-generation mechanical or bioprosthetic aortic heart valve replacement. Note: Patients with mechanical aortic valve replacement and additional risk factors for thromboembolic events (atrial fibrillation, previous thromboembolism, LV dysfunction, hypercoagulable conditions) or an older generation mechanical AVR (i.e., ball in-Cage) or any mechanical MVR should have a INR therapeutic range of 2.5 to 3.5 (target INR of 3). Blaise GH, et al. Chest 2012, 141:7S-47S Lucian RA, et al. [facility] 2017, 70: 252-289 Performed By: #### 26580-9, 18145-2 #### [facility] CLIA [id number] [address] [place] APTT PPP Collected: 5 11:43 PM Status: F Source: [facility] Order Comment: Specimen Type : BLOOD SPECIMEN Ordering Facility: [facility] Address: [address] [place] [address] TYPE CODE TESTS RESULT OUT OF RANGE REFERENCE UNITS LAB 48539-8([facility]) aPTT PPP 24.3 23.0-32.4 sec Performed By: #### 00164-4, 23202-6 #### [facility] CLIA [id number] [address] [place] ARTERIAL BLOOD GASES Collected: 025 11:25 PM Status: F Source: [facility] Order Comment: Specimen Type : ARTERIAL BLOOD SPECIMEN Ordering Facility: [facility] Address: [address] [place] [address] TYPE CODE TESTS RESULT OUT OF RANGE REFERENCE UNITS LAB 51942-1(LOINC) pH Bld 7.38 7.35-7.45 LAB 22174-8([facility]) pH temp adj Bld 7.38 7.35-7.45 LAB 60091-9([facility]) pCO2 Bld 30 Low 36-46 mm Hg LAB 25105-4([facility]) pCO2 temp adj Bld 30 Low 36-46 mmHg LAB 58013-5([facility]) pO2 Bld 146 High 85-95 mm Hg LAB 45903-7([facility]) pO2 temp adj Bld 144 High 85-95 mmHg LAB 1959-6([facility]) HCO3 Bld-sCnc 17 Low 22-26 mmol /L LAB 2708-6([facility]) SaO2 % BldA 99 High 95-98 % LAB 1922-4([facility]) Base deficit BldA-sCnc -6 Low -2-0 mmol/L LAB 2714-4([facility]) OxyHgb MFr BldA 98 95-98 % LAB 2030-5([facility]) COHgb MFr BldA 0.3 0.0-2.0 % Result Comment: Carboxyhemog lobin Reference Range for Smokers: 2.0-8.0% LAB 2614-6([facility]) MetHgb MFr Bld 0.7 0.0-1.5 % LAB 2947-0([facility]) Sodium Bld-sCnc 140 136-144 mm ol/L LAB 6298-4([facility]) Potassium Bld-sCnc 3.2 Low 3.5-5.0 mmol/L LAB CHLWBBG CHLORIDE WHOLE BLOOD 113 High 97-105 mmol/L LAB 97236-4([facility]) Ca-I BldV-mCnc 1.19 1.08-1.30 mmol/L LAB 55859-7([facility]) Ca-I adj pH7.4 BldA-sCnc 1.18 1.08-1.30 mmol/L LAB 2339-0([facility]) Glucose Bld-mCnc 132 High 60-105 mg/dL LAB 69354-5([facility]) Lactate Bld-sCnc 2.3 High 0.5-2.2 mmol/L LAB 718-7([facility]) Hgb Bld-mCnc 13.6 11.5-15.5 g/dL LAB 4544-3(LOINC) Hct VFr Bld Auto 41.8 36.0-46.0 % LAB VTMP TEMPERATURE, BODY 36.6 C LAB FIO2BG FIO2 35 % LAB VO2TH O2 THERAPY VENT=Venti lator LAB SETVENTBG SET VENTILATOR RESPIRATORY RATE (BPM) 14 BPM LAB INHTDVBG INHALED TIDAL VOLUME (ML) 450 LAB PEEPBG PEEP/CPAP 5 cmH2O LAB [id number] PO2 / FIO2 RATIO 417 >300 mmHg Performed By: #### ALLBG ### # [facility] CLIA [id number] [address] OF [facility] PROGRESS Observed: 10/06/2024 9:49 PM Status: COMPLETED Source: [facility] ID: [id number] Author: FRITZ SUNG Medic Service: ? Author Type: Payment Manager and Manager Gift Type: Progress Notes Filed: 10/07/2024 03:30 Note Text: CRITICAL CARE TRANSPORT MEDICAL CONTROL CONSULT NOTE Patient Name: Doug Flanagan Service Date: October 06, 2024 Referring Facility: [facility] Accepting Facility: REASON FOR TRANSPORT: seizures REASON FOR CONSULT: sedation CCT MEDICAL CONTROL CONSULT SUMMARY: History, physical exam findings, and available background patient information from [facility] Transport Nurse were reviewed at the time of consult. Pertinent additional information was reviewed as follows: Epic Records In brief, Doug Flanagan is a 34 year old female with a history, known at time of consult, significant for depression, seizures, myasthenia gravis, TBI who presented to [facility] for evaluation of seizure activity. Per the ED patient self administered valium prior to seizure activity. Upon arrival to the ED patient was post ictal and intubated for airway protection. Patient to be transferred to [facility] for further care and neurological evaluation. PLAN: Multiple factors considered including: patient history/condition/trajectory/stability, referring and receiving destinations, duration of transport time, medications and therapies available during transport, patient safety, as well as crew capabilities. Orders given for: Propofol titration Plan of care and orders confirmed and read back via telephone with CCT Transport automobile club membership sales agent, Júnior Sung, Payment Manager SIGNATURE: Rivka Bain APRN.[facility] Acute Care Nurse Practitioner Critical Care Transport CNCRITCR Observed: 10/06/2024 12:00 AM Status: COMPLETED Source: [facility] Critical Care Transport (CCT ) DOUG FLANAGAN ([id number]) 1990 F Date Time Provider Department 10/06/24 RIVKA BAIN During your visit today, we recorded the following information about you: Fritz Sung Medic 10/07/2024 3:30 AM Signed CRITICAL CARE TRANSPORT MEDICAL CONTROL CONSULT NOTE Patient Name: Doug Flanagan Service Date: October 06, 2024 Referring Facility: [facility] Accepting Facility: REASON FOR TRANSPORT: seizures REASON FOR CONSULT: sedation CCT MEDICAL CONTROL CONSULT SUMMARY: History, physical exam findings, and available background patient information from [facility] Transport Nurse were reviewed at the time of consult. Pertinent additional information was reviewed as follows: Epic Records In brief, Doug Flnaagan is a 34 year old female with a history, known at time of consult, significant for depression, seizures, myasthenia gravis, TBI who presented to [facility] for evaluation of seizure activity. Per the ED patient self administered valium prior to seizure activity. Upon arrival to the ED patient was post ictal and intubated for airway protection. Patient to be transferred to [facility] for further care and neurological evaluation. PLAN: Multiple factors considered including: patient history/condition/trajectory/stability, referring and receiving destinations, duration of transport time, medications and therapies available during transport, patient safety, as well as crew capabilities. Orders given for: Propofol titration Plan of care and orders confirmed and read back via telephone with [facility] Transport automobile club membership sales agent, Júnior Sung, Payment Manager SIGNATURE: Rivka Bain APRN.[facility] Acute Care Nurse Practitioner Critical Care Transport Allergies As of Date: 10/06/2024 Noted Allergy Reaction CIPROFLOXACIN 10/11/2023 1 - Mental Status Change Compazine (PROCHLORPERAZINE) 04/01/2022 5 - Intolerance DILANTIN (PHENYTOIN) 10/14/2020 1 - Mental Status Change Comments: Hallucination, vomiting IODIDES 06/28/2018 14 - Other: See Comments Comments: Pt states she can have a seizure with sea food but has had CT with dye without any problem on numerous occasions KEPPRA (LEVETIRACETAM) 11/06/2013 1 - Mental Status Change 14 - Other: See Comments Comments: Hallucinations, suicidal thoughts PENICILLINS 11/06/2013 2 - Rash SHELLFISH CONTAINING PRODUCTS 04/05/2019 14 - Other: See Comments SOY PROTEIN 02/17/2021 14 - Other: See Comments Date Reviewed: 10/06/2024 Reviewed by: Gwen Oliveira RN - Fully Assessed Reason for Visit: Critical Care Transport [1718] Order(s):[] fentaNYL 50 mcg/mL 50 mcg injection (SUBLIMAZE)Disp: Rfl: 0 propofol infusion (DIPRIVAN)Disp: Rfl: Prescriptions as of 10/07/2024 - benzonatate (TESSALON PERLES) 100 mg capsule Take 1 capsule by mouth three times daily as needed for cough. - ravulizumab-cwvz (ULTOMIRIS) 100 mg/mL injection as directed Intravenous - lamoTRIgine ER (LAMICTAL XR) 250 mg 24 hr tablet - peg 3350-Electrolytes (GOLYTELY) 236-22.74-6.74 -5.86 gram suspension Sip on it until gone - diazePAM (VALTOCO) 10 mg/spray (0.1 mL) nasal spray as directed. - escitalopram oxalate (LEXAPRO) 10 mg tablet Take 10 mg by mouth once daily. - apixaban (ELIQUIS) 5 mg tab(s) Take 5 mg by mouth twice daily. - rOPINIRole (REQUIP) 0.5 mg tablet take 1 tablet by mouth 1-3 HOURS PRIOR TO BEDTIME - OXcarbazepine (TRILEPTAL) 150 mg tablet Take 150 mg by mouth daily at bedtime. - LORazepam (ATIVAN) 1 mg tablet take 1 tablet by mouth if needed for SEIZURE GERATER THAN 5 MINUTES DIRECTED (FOR 30 DAYS) - levonorgestrel (MIRENA) 20 mcg/24 hours (8 yrs) 52 mg IUD 1 Each by INTRAUTERINE route one time only. - lamoTRIgine ER (LAMICTAL XR) 100 mg 24 hr tablet Take two (2.0) in AM and four(4.0) tablets at bedtime - zonisamide (ZONEGRAN) 100 mg capsule Take 3 capsules by mouth once daily. - acetaminophen (TYLENOL) 325 mg tablet Take 650 mg by mouth every 6 hours as needed. Facility-Administered Medications as of 10/07/2024 - potassium chloride iv piggyback 20 mEq/100 mL - senna-docusate 8.6-50 mg 1 tablet (SENNA-S) - bisacodyl 10 mg suppository (DULCOLAX) - enoxaparin 40 mg injection (LOVENOX) - NaCl 0.9% iv flush bag - NaCl 0.9% iv infusion - acetaminophen 650 mg tab(s) (TYLENOL) - famotidine 20 mg tab(s) (PEPCID) - zonisamide 200 mg cap(s) (ZONEGRAN) - zonisamide 300 mg cap(s) (ZONEGRAN) - escitalopram oxalate 10 mg tab(s) (LEXAPRO) - propofol infusion (DIPRIVAN) - lamoTRIgine 250 mg tab(s) (LaMICtal) - propofol infusion (DIPRIVAN) - fentaNYL 50 mcg/mL 50 mcg injection (SUBLIMAZE) - oxyCODONE IR 5 mg tab(s) (ROXICODONE) Problem List As Of Date 10/06/2024 Noted Resolved 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 04/20/2014 Generalized convulsive epilepsy (HCC) [G40.309] 04/20/2014 Hand weakness [R29.898] 04/08/2016 Neck pain [M54.2] 09/21/2016 Breakthrough seizure (HCC) [G40.919] 10/06/2024 Status epilepticus (HCC) [G40.901] 10/06/2024 Epilepsy (HCC) [G40.909] 10/06/2024 Acute respiratory failure with hypoxia (HCC) [J*10/06/2024 On mechanically assisted ventilation (HCC) [Z99*10/06/2024 Myasthenia gravis (HCC) [G70.00] 10/06/2024 Hx of migraines [Z86.69] 10/06/2024 Generalized anxiety disorder [F41.1] 10/06/2024 Prescriptions ordered this encounter Disp Refills Start End FENTANYL (PF) 50 MCG/ML INJECTION SO* 0 10/06/2024 10/06/2024 Route: IV PROPOFOL 10 MG/ML INTRAVENOUS EMULSI* 10/06/2024 Route: IV Encounter Status:Closed by FRITZ SUNG on 10/07/24 ALLERGIES DATE TYPE / CODE NAME / CODE REACTION SEVERITY SOURCE 10/07/2024 DRUG INGREDI/78596 1003(SNOMED CT) BARIUM SULFATE OTHER: SEE [facility] 10/07/2024 DRUG INGREDI/96402 1003(SNOMED CT) TECHNETIUM-99M OTHER: SEE [facility] 10/11/2023 DRUG INGREDI/74413 1003(SNOMED CT) CIPROFLOXACIN Mental [facility] 04/01/2022 DRUG INGREDI/41184 1003(SNOMED CT) PROCHLORPERAZINE INTOLERANCE [facility] 02/17/2021 DRUG INGREDI/41543 1003(SNOMED CT) SOY PROTEIN OTHER: SEE [facility] 10/14/2020 DRUG INGREDI/46818 1003(SNOMED CT) PHENYTOIN Mental [facility] 04/05/2019 Drug Class/5622773 03(SNOMED CT) SHELLFISH CONTAINING PRODUCTS OTHER: SEE [facility] 06/28/2018 DRUG/19336337 3(SNOMED CT) IODIDES OTHER: SEE [facility] 11/06/2013 DRUG INGREDI/57907 1003(SNOMED CT) LEVETIRACETAM Mental [facility] 11/06/2013 Drug Class/2844992 03(SNOMED CT) PENICILLINS RASH [facility] ENCOUNTERS ADMIT/DISCHARGE ACCOUNT NUMBER ADMITTING ENCOUNTER CLASS LOCATION SOURCE 10/06/2024/ 5 [id number] JOHAN ARITA Inpatient Encounter [facility] inRoom : 8104Bed: 02 [facility] PAYERS ENCOUNTER GUARANTOR PAYER SUBSCRIBER SOURCE 10/06/2024 Primary Insuranc e:[employer] MEDICAREPolicy Number: [id number] Date:[id number] Name:Tc AGUILARB: [id number] [place] [address] [facility] 10/06/2024 Secondary Insurance:[employer] MEDICAIDPolicy Number: [id number] Date:[id number] Name:Harvinder ALTAMIRANO ELIZABETH: [id number] [place] [address] [facility]
[2025-01-27 14:09] VITALS: BP 132/92; PULSE 98; RESP 16; TEMP 36.6; O2SAT 93
--- NOTE | 2025-01-27 14:22 | EKG12_ITS ---
Test Reason : CP Blood Pressure : */* mmHG Vent. Rate : 83 BPM Atrial Rate : 83 BPM P-R Int : 176 ms QRS Dur : 84 ms QT Int : 362 ms P-R-T Axes : 45 -15 24 degrees QTcB Int : 425 ms Normal sinus rhythm Normal ECG Confirmed by JOANIE BAY ([id number]), proposal editor IRENA RAE ([id number]) on 01/29/2025 8:43:03 AM Referred By: Confirmed By: JOANIE BAY
--- NOTE | 2025-01-27 14:23 | EX.ED.DYSGE1 ---
HPI History of Present Illness Chief Complaint: Seizure Narrative Narrative: Patient is a 34-year-old female with past medical history of seizures, myasthenia gravis, anemia, peripheral vascular disease, gastroparesis who presents to the emergency department chief complaint of seizure. According to the patient she was at home resting and her service dog alerted her that she has not have a seizure. States that she took her Diazepam however this did not work. Mother at bedside states that within the usually 10 minutes the medication usually works however this was not the case today. States that her daughter was complaining some difficulty breathing therefore she called EMS to have her brought here to be further evaluated. Mother notes the last time she was here "since they were not listening to us she ended up intubated" she states that she had to be transferred to [facility] at that point time. Patient today states that she has no complaints she feels well and has no complaints before this states that she has been feeling her normal self. Mother at bedside notes that she had blood work obtained recently as well. [facility] Medical History Upper respiratory infection Gastroparesis Dietary counseling Encounter to establish care Chronic abdominal pain Chronic constipation Hx of peripheral vascular disease Normal echocardiogram (~05/18/16) Anemia Migraine headache Injury of head and neck Seizures Difficulty swallowing Difficulty chewing Non-smoker Shortness of breath on exertion Leg cramps History of stress test Chest pain Myasthenia gravis Home Medications Medication Instructions Recorded Last Taken Type levonorgestrel (Mirena) 20 mcg intrauterine UD 10/14/20 Unknown History control diazepam 10 mg/spray (0.1 mL) See Rx Instructions .Route 11/07/24 01/27/25 Rx nasal spray (Valtoco) .COMPLEX Seizures #5 sprays escitalopram oxalate 10 mg tablet 10 mg PO QHS #30 tabs 11/07/24 Unknown Rx (Lexapro) ravulizumab-cwvz 100 mg/mL 3,300 mg (33 mL) .Route .q8 weeks 11/07/24 Unknown Rx intravenous solution (Ultomiris) #33 mL zonisamide 100 mg capsule See Rx Instructions .Route 11/07/24 Unknown Rx .COMPLEX seizures #150 caps lamotrigine 300 mg tablet,extended 300 mg PO BID #60 tabs 12/12/24 Unknown Rx release 24 hr lubiprostone 8 mcg capsule 8 mcg PO DAILY 01/27/25 Unknown History Allergy/AdvReac Type Severity Reaction Status Date / Time barium sulfate Allergy Severe Other Verified 01/11/25 13:43 levetiracetam (From Keppra) Allergy Other Verified 01/11/25 13:43 Penicillins Allergy Rash Verified 01/11/25 13:43 phenytoin (From Dilantin) Allergy PT UNSURE Verified 01/11/25 13:43 OF REACTION prochlorperazine (From Allergy Other Verified 01/11/25 13:43 Compazine) shellfish derived Allergy Other Verified 01/11/25 13:43 technetium-99m AdvReac Severe Other Verified 01/11/25 13:43 soy AdvReac NEEDS Verified 01/11/25 13:43 FOLLOW-UP Family History Mother Heart disease Cervical cancer Father No problems noted. Surgical History History of colonoscopy (04/02/22) Hx of appendectomy Hx of total hip arthroplasty Hx of thymectomy Social History household members: children current occupational status: disabled pets and animals: Yes pets and animals: dog(s) and turtle(s) Smoking Status: Never smoker second hand exposure: Yes alcohol intake: never substance use type: does not use caffeine: Yes (1 cup coffee daily on avg) Type: coffee do you feel safe at home: Yes ROS ROS ED ROS Narrative Constitutional: Denies any headache, lightness, dizziness, fevers, chills Eyes: Denies double vision Cardiovascular: Denies chest pain Respiratory: Complains of shortness of breath as noted above denies coughing wheezing Abdomen: Denies any abdominal pain : Denies any urinary symptoms Neurological: Denies any numbness, weakness, tingling Musculoskeletal: Denies any back pain Skin: Denies any rashes or lesions EXAM Physical Exam Narrative Exam Narrative: General: Patient lying in bed rest comfortably did not appear to be in acute distress Head: Atraumatic, normocephalic Eyes: PERRL bilaterally, EOMI bilaterally, no conjunctival injection noted Neck: Soft, supple, trachea midline Cardiovascular: Regular rate and rhythm no murmurs gallops rubs noted Respiratory: Clear to auscultation bilaterally no rales rhonchi or wheeze noted Abdomen: Soft, nondistended, no tenderness to palpation Extremities: Patient moving all extremities, radial pulses +2/4 in the bilateral extremities Neurological: Patient following commands that she was at [facility] year is 2024. NIH of 0 GCS 15 Skin: Warm, dry, intact no rashes or lesions noted Const Vital Signs: 01/27/25 14:09 01/27/25 16:08 01/27/25 17:22 Temperature 97.9 F 98.1 F Temperature Source Oral Oral Pulse Rate 98 91 70 Respiratory Rate 16 16 16 Blood Pressure 132/92 H 121/74 H 121/75 H Blood Pressure Mean 105 89 90 Pulse Ox 93 100 96 Oxygen Delivery Method Room Air Room Air Room Air MDM MDM MDM Narrative Medical decision making narrative: Patient is a 34-year-old female who presented to the emergency department the chief complaint of seizure. On the differential diagnose includes but not limited to breakthrough seizure, medication noncompliance, electrolyte abnormality, . Once workup is obtained reviewed she will be reevaluated. Patient already had diazepam prior to arrival here to the emergency department right before her seizure. Patient's zonisamide level 01/18/2025 was reviewed and showed 22.8 this is within normal limits. Patient's lamotrigine level was within normal limits at 12. Patient's ammonia level at that point time as well was normal at 37.3. Patient CBC reviewed and showed no evidence leukocytosis white blood cell normal 8.1, heme was 13.6, plate count was noted be 271. Patient sodium is 141, potassium low at 3.4, creatinine 0.69. Patient's AST and ALT are 13 and 10 respectively. Patient test negative, urinalysis reviewed and showed negative nitrites negative leukocyte esterase 0-5 white cells with 1+ bacteria. Patient did have a another seizure here in the emergency department she was given 2 mg of IV Ativan. Once patient returned to baseline mental status she was given a another dose of her Lamictal here in the emergency department 200 mg. At this point time discussed case with [facility] For transfer given her multiple seizures and a recent history of going into status epilepticus after similar events. Spoke with hospitalist Dr. Mims who accept the patient for transfer. Patient was notified as well as mother at bedside all questions earns answered. Lab Data Labs: Laboratory Results - last 24 hr 01/27/25 01/27/25 14:44 15:35 WBC 8.1 RBC 4.59 Hgb 13.6 Hct 40.7 MCV 88.7 MCH 29.6 MCHC 33.4 RDW Std Deviation 41.8 RDW Coeff of Mariella 12.9 Plt Count 271 MPV 9.1 Immature Gran % (Auto) 0.400 Neut % (Auto) 82.1 H Lymph % (Auto) 11.9 L [place] % (Auto) 4.6 Eos % (Auto) 0.6 Baso % (Auto) 0.4 Absolute Neuts (auto) 6.6 Absolute Lymphs (auto) 0.96 Nucleated RBC % 0 Sodium 141 Potassium 3.4 Chloride 110 H Carbon Dioxide 19.2 L Anion Gap 12 BUN 10 Creatinine 0.69 L Est GFR (MDRD) Non-Af 115 BUN/Creatinine Ratio 14.0 Glucose 96 Calcium 9.3 Total Bilirubin 0.30 AST 13 ALT 10 Alkaline Phosphatase 85 Total Protein 6.9 Albumin 4.3 Globulin 2.6 Albumin/Globulin Ratio 1.6 Serum , Qual NEGATIVE Urine Color Yellow Urine Clarity Sl. Cloudy Urine pH 6.0 Ur Specific [place] 1.010 Urine Protein 15 H Urine Glucose (UA) Normal Urine Ketones Negative Urine Occult Blood 25 H Urine Nitrite Negative Urine Bilirubin Negative Urine Urobilinogen Normal Ur Leukocyte Esterase Negative Urine RBC 5-10 SEEN Urine WBC 0-5 SEEN Ur Squamous Epith Cells 5-10 SEEN Urine Bacteria 1+ Urine Mucus 0 SEEN Radiography Diagnostic Testing: Clinical Impression(s) from Imaging Studies Chest X-Ray 01/27/25 14:55 IMPRESSION: NO ACUTE FINDINGS. Reading [facility] 01/27/25 15:23 IMPRESSION: Unremarkable head CT. Reading Location: [id number] Discharge Plan Triage Chief Complaint: Seizure ED Provider: Kaiden Rausch Dx/Rx/DC Orders Clinical Impression: Breakthrough seizure, Epilepsy, Myasthenia gravis, Anxiety Prescriptions: No Action Valtoco 10 mg/spray (0.1 mL) spray,non-aerosol See Rx Instructions .ROUTE .COMPLEX Qty: 5 0RF Rx Instructions: 1 spray intranasally daily as needed for breakthrough seizures. zonisamide 100 mg capsule See Rx Instructions .ROUTE .COMPLEX Qty: 150 4RF Rx Instructions: Take 2 capsules orally every morning and 3 capsules every evening. Ultomiris 100 mg/mL solution 3,300 mg .Route .q8 weeks Qty: 33 2RF Rx Instructions: 3300 mg IV infusion over 1 hour every 8 weeks. escitalopram oxalate [Lexapro] 10 mg tablet 10 mg PO QHS Qty: 30 4RF lamotrigine 300 mg tablet extended release 24hr 300 mg PO BID Qty: 60 2RF Mirena 20 mcg/24 hours (6 yrs) 52 mg Intrauterine Device 20 mcg INTRAUTERINE UD Patient Comments: already placed lubiprostone 8 mcg capsule 8 mcg PO DAILY Primary Care Provider: Leander Patel Referrals: Leander Patel MD [Primary Care Provider, Internal Medicine] Print Language: Turkmen Disposition Disposition: DC/Tx to Another Type of HCF
[2025-01-27] MEDS: 0.9% Normal Saline (1000mL) 1,000 ML 999 ML IV (14:40)
[2025-01-27 14:54] LABS: Hematocrit 40.7 % (37-47); Hemoglobin 13.6 g/dL (12.0-15.0); Immature Granulocytes Count 0.030 X10^3/uL (0.0-0.0); Mean Corp Hgb Conc 33.4 g/dL (32-36); Mean Corpuscular Volume 88.7 fL (81-99); Mean Platelet Vol. 9.1 fl (6.2-12.0); NRBC Flagged by Analyzer 0 % (0-5); Platelet Count 271 K/mm3 (150-450); RBC Distribution Width CV 12.9 % (11.6-14.6); RBC Distribution Width SD 41.8 fl (35.1-43.9); Red Blood Count 4.59 M/mm3 (4.2-5.4); White Blood Count 8.1 K/mm3 (4.4-11.0)
--- NOTE | 2025-01-27 14:55 | RAD_ITS ---
PROCEDURE: CHEST PA AND LATERAL 01/27/2025 REASON FOR EXAM: SOB TECHNIQUE: Procedure Code: RADCXR Modality: DX Procedure: CHEST PA AND LATERAL COMPARISON: 10/13/2024 FINDINGS: Hardware: Right-sided MediPort unchanged. Heart: The heart size is normal. Mediastinum: The mediastinal contour is unremarkable. Lungs: The lungs are clear. No pneumothorax or pleural effusion. Bones: The bones are unremarkable. RAD/Chest PA and Lateral IMPRESSION: NO ACUTE FINDINGS. Reading Location[facility]
[2025-01-27 15:07] LABS: AST(SGOT) 13 U/L (<=31); Alanine Aminotransfer ALT/SGPT 10 U/L (<=34); Albumin, Serum 4.3 g/dL (3.5-5.0); Alkaline Phosphatase 85 U/L (35-104); Anion Gap 12 (5-15); BUN 10 mg/dL (4-19); BUN/Creat Ratio 14.0 RATIO (10-20); Calcium,Total 9.3 mg/dL (7.6-11.0); Carbon Dioxide 19.2 mmol/L (21.0-32.0); Chloride 110 mmol/L (98-108); Globulin 2.6 g/dL (2.2-4.2); Glucose 96 mg/dL (70-99); Potassium 3.4 mmol/L (3.3-5.1)
[2025-01-27 15:19] LABS: Internal QC Validated? YES +Cl - CLEAR BKGD; Pregnancy, Serum, hCG Quali. NEGATIVE Negative; Record Kit Lot#, Serum Preg. 964736
--- NOTE | 2025-01-27 15:23 | CT_ITS ---
PROCEDURE: CT BRAIN/HEAD WITHOUT CONTRAST 01/27/2025 REASON FOR EXAM: SEIZURE TECHNIQUE: Procedure Code: CTBR Modality: CT Procedure: BRAIN/HEAD WITHOUT CONTRAST Coronal and Sagittal reconstruction series were provided. One or more dose reduction techniques were used (e.g., Automated exposure control, adjustment of the mA and/or kV according to patient size, use of iterative reconstruction technique. RADIATION DOSE SUMMARY: CTDlvol: 44.99 mGy DLP: 829.85 mGycm COMPARISON: 10/06/2024 FINDINGS: No acute intracranial hemorrhage, extra-axial collection, mass effect or acute infarct. Ventricles and subarachnoid spaces are normal in size. Orbital contents are unremarkable. Intact skull base and calvarium. Clear paranasal sinuses and mastoid air cells. CT/Brain/Head without Contrast IMPRESSION: Unremarkable head CT. Reading Location: [id number]
[2025-01-27 15:44] LABS: Mucous, Urine 0 SEEN /hpf (<or=2+)
[2025-01-27 15:45] LABS: Color, Urine Yellow (Yellow); Glucose, Dipstick Normal (Normal); Ketone-Dipstick Negative (Negative); Leukocyte Esterase-Dipstick Negative /ul (Negative); Nitrite-Dipstick Negative (Negative); Occult Blood-Urine 25 /ul (Negative); Protein-Dipstick 15 mg/dl (Negative); Specific Gravity, Urine 1.010 (1.002-1.030); Urine Bilirubin Dipstick Negative (Negative)
[2025-01-27 15:55] LABS: Red Blood Cells-Urine 5-10 SEEN /hpf (0-5); Squamous Epithelial Cells - UA 5-10 SEEN /hpf (5-10)
[2025-01-27 16:08] VITALS: BP 121/74; PULSE 91; RESP 16; O2SAT 100
[2025-01-27 17:22] VITALS: BP 121/75; PULSE 70; RESP 16; TEMP 36.7; O2SAT 96
[2025-01-27 17:49] VITALS: BMI 27.4
--- NOTE | 2025-01-27 17:57 | PCA ---
CALLED [facility] @ 1510 PUSHED IMAGES AND FAXED INFO OVER
--- NOTE | 2025-01-27 19:02 | PCA ---
PT ACCEPTED TO [facility] [id number] BED 2 [id number]
[2025-01-27 19:55] VITALS: BP 103/59; PULSE 85; RESP 16; TEMP 36.7; O2SAT 100
--- NOTE | 2025-01-27 20:11 | NURSING ---
Atempt x2 to call [facility] to give report. Put on hold for 15 min.
== END 2025-01-27 20:12 | disposition other institution (70) ==
PROVIDERS: Emergency Provider Emergency Medicine; PCP Internal Medicine; Visit Provider Emergency Medicine
DX: G40.909 Epilepsy, unspecified, not intractable, without status epilepticus (principal); G70.00 Myasthenia gravis without (acute) exacerbation; F41.9 Anxiety disorder, unspecified
CPT/HCPCS: 70450; 71046; 80053; 81001; 84703; 85025; 93005; 96361; 96374; 99285; A4216

== ENCOUNTER → 2025-03-02 | Outpatient (CLI) | payer MEDICARE, MEDICAID, SELFPAY ==
[2025-03-02 08:56] LABS: Hematocrit 41.8 % (37-47); Hemoglobin 14.0 g/dL (12.0-15.0); Mean Corp Hgb Conc 33.5 g/dL (32-36); Mean Corpuscular Volume 90.3 fL (81-99); Mean Platelet Vol. 9.3 fl (6.2-12.0); Platelet Count 168 K/mm3 (150-450); RBC Distribution Width CV 13.9 % (11.6-14.6); RBC Distribution Width SD 44.0 fl (35.1-43.9); Red Blood Count 4.63 M/mm3 (4.2-5.4); White Blood Count 6.3 K/mm3 (4.4-11.0)
[2025-03-02 09:34] LABS: AST(SGOT) 15 U/L (<=31); Alanine Aminotransfer ALT/SGPT 10 U/L (<=34); Albumin, Serum 4.2 g/dL (3.5-5.0); Alkaline Phosphatase 69 U/L (35-104); Anion Gap 10 (5-15); BUN 9 mg/dL (4-19); BUN/Creat Ratio 14.1 RATIO (10-20); Calcium,Total 8.9 mg/dL (7.6-11.0); Carbon Dioxide 20.5 mmol/L (21.0-32.0); Chloride 108 mmol/L (98-108); Globulin 2.9 g/dL (2.2-4.2); Glucose 86 mg/dL (70-99); Potassium 3.7 mmol/L (3.3-5.1)
[2025-03-02 09:42] LABS: Valproic Acid (Depakene) Level 88 ug/mL (50-100)
[2025-03-02 09:56] LABS: Ammonia 68.6 umol/L (11-51)
== END | disposition home or self-care (01) ==
LOC: LAB 08:30
PROVIDERS: PCP Internal Medicine; Referring Provider Psychiatry & Neurology Neurology; Visit Provider Psychiatry & Neurology Neurology
DX: G40.909 Epilepsy, unspecified, not intractable, without status epilepticus (principal)
CPT/HCPCS: 36415; 80053; 80164; 82140; 82542; 85027

== ENCOUNTER → 2025-03-15 | Outpatient (CLI) | payer MEDICARE, MEDICAID, SELFPAY ==
[2025-03-15 14:14] LABS: Hematocrit 42.5 % (37-47); Hemoglobin 14.4 g/dL (12.0-15.0); Mean Corp Hgb Conc 33.9 g/dL (32-36); Mean Corpuscular Volume 90.2 fL (81-99); Mean Platelet Vol. 9.2 fl (6.2-12.0); Platelet Count 237 K/mm3 (150-450); RBC Distribution Width CV 14.4 % (11.6-14.6); RBC Distribution Width SD 47.5 fl (35.1-43.9); Red Blood Count 4.71 M/mm3 (4.2-5.4); White Blood Count 7.4 K/mm3 (4.4-11.0)
[2025-03-15 15:06] LABS: AST(SGOT) 15 U/L (<=31); Alanine Aminotransfer ALT/SGPT 11 U/L (<=34); Albumin, Serum 4.3 g/dL (3.5-5.0); Alkaline Phosphatase 67 U/L (35-104); Anion Gap 12 (5-15); BUN 10 mg/dL (4-19); BUN/Creat Ratio 13.5 RATIO (10-20); Calcium,Total 9.3 mg/dL (7.6-11.0); Carbon Dioxide 20.2 mmol/L (21.0-32.0); Chloride 107 mmol/L (98-108); Globulin 2.9 g/dL (2.2-4.2); Glucose 105 mg/dL (70-99); Magnesium 2.2 mg/dL (1.5-2.2); Potassium 3.6 mmol/L (3.3-5.1)
[2025-03-15 15:07] LABS: Ammonia 60.1 umol/L (11-51)
== END | disposition home or self-care (01) ==
LOC: LAB 13:52
PROVIDERS: PCP Internal Medicine; Referring Provider Psychiatry & Neurology Neurology; Visit Provider Psychiatry & Neurology Neurology
DX: G40.909 Epilepsy, unspecified, not intractable, without status epilepticus (principal); E72.20 Disorder of urea cycle metabolism, unspecified
CPT/HCPCS: 36415; 80053; 82140; 83735; 85027

== ENCOUNTER → 2025-04-21 | Outpatient (CLI) | payer MEDICARE, MEDICAID, SELFPAY ==
--- OUTSIDE RECORDS SUMMARY | 2025-04-21 09:43 | XMS RPT_ITS | CCD ---
Author Organization [facility] Care Team Providers Care Presidential Support Specialist Name Role Phone BHUPENDRA CANDELARIA Unavailable Unavailable ZALDIVAR, EULALIA Unavailable Unavailable [employer] Unavailable Unavailable NO REFERRING DR Unavailable Unavailable WARD DUARTE Unavailable Unavailable CiesaDylan E Unavailable Everton Khan Unavailable Dylan Ramirez Unavailable Khurram Lawrence Unavailable Virgil Barnett Unavailable [phone] Madai Dunbar Unavailable Unavailable Rasheed, Alethea Unavailable Unavailable Wolf, Nancy L Unavailable Unavailable Messenger, Kaylyn Unavailable Unavailable Unavailable Unavailable Alexis Riojas Unavailable Unavailable Dylan Velarde Attending Unavailable Dylan Velarde Referring Unavailable Dylan Velarde Consulting Unavailable Ciesa Kassie Unavailable Everton Khan Unavailable Dylan Ramirez Unavailable Khurram Lawrence Unavailable Virgil Barnett Unavailable Louise Cunningham Unavailable Unavailable Madai Dunbar Unavailable Unavailable Rasheed, Alethea Unavailable Unavailable Long, Nancy L Unavailable Unavailable Messenger, Kaylyn Unavailable Unavailable Unavailable Unavailable Prerna De La Garza Unavailable Unavailable Dylan Velarde Primary Care Provider Virgil Barnett Unavailable Alexis Iqbal Unavailable Unavailable Long, Nancy L Unavailable Unavailable Messenger, Kaylyn Unavailable Unavailable Alexis Riojas Unavailable Unavailable Dylan Velarde Primary Care Provider [phone] Dylan Velarde CNP Unavailable Bill SALGADO, Everton Unavailable Dylan Ramirez Unavailable Melinda SALGADO, Khurram Jones Unavailable Virgil Barnett Unavailable Rasheed BARONN, Alexis Unavailable Unavailable Wolf RN, Nancy Fierro Unavailable Unavailable Bandar RN, Kaylyn Unavailable Unavailable Unavailable Unavailable Donna Perdomo MD Unavailable Avery SALGADO, Dr. Suzan Cummings Unavailable Manchak ENGINEERING AIDE, Zeinab Unavailable Unavailable Krysten CATECHIST, Nina Unavailable Unavailable Unavailable Unavailable Dylan Velarde CNP Primary Care Provider Gerald Gilmore Unavailable Ciesa RV SERVICER, RV SERVICER-C Dylan Primary Care Provider Dr. Arley Jama Attending Provider Dr. Tevin Lopez Referring Provider Dylan Velarde Unavailable Dylan Velarde CNP Primary Care Provider Gerald Gilmore Unavailable Dr. Donna Perdomo Primary Care Provider Dr. Zina Randhawa Attending Provider Dr. Zina Randhawa Referring Provider Dylan Velarde CNP Primary Care Provider Gerald Gilmore Unavailable Dr. Donna Perdomo Primary Care Provider Dr. Zina Randhawa Attending Provider Dr. Zina Randhawa Referring Provider Dylan Velarde CNP Primary Care Provider Gerald Gilmore Unavailable Donna Perdomo MD Primary Care Provider CROCK, EDWIGE Referring Unavailable BONEZZI, DONNA Primary Care Unavailable CROCK, EDWIGE Referring Unavailable BONEZZI, DONNA Primary Care Unavailable RADHA, CHRISTOPHER Admitting Unavaila ble RADHA, CHRISTOPHER Attending Unavaila ble BONEZZI, DONNA Primary Care Unavailable SAKSHI, PRETI Consulting Unavailable SAKSHI, PRETI Attending Unavailable SAKSHI, PRETI Referring Unavailable BONEZZI, DONNA Primary Care Unavailable Leanne SALGADO, Donna Greenwood Primary Care Provider [phone] Dylan Velarde Primary Care Provider [phone] Donna Perdomo MD Primary Care Provider [phone] Leanne SALGADO, Donna Greenwood Primary Care Provider [phone] Prachi BANSAL [facility] Primary Care Provider [phone] Mando SALGADO, Gerald Greenwood Unavailable MERRICK LOPEZ Referring Unavailable BONEZZI, DONNA M Primary Care Unavailable EDGAR AYERS Attending Unavailable BONEZZI, DONNA M Primary Care Unavailable MATURU, ANUEL Admitting Unavailable MATURU, ANEUL Attending Unavailable BENAMEUR, RENEE R Attending Unavailable BONEZZI, DONNA M Primary Care Unavailable BONEZZI, DONNA M Referring Unavailable FREIMER, PANKAJ L Referring Unavailable BONEZZI, DONNA M Primary Care Unavailable EDGAR AYERS Attending Unavailable USHER, TALYA R Attending Unavailable SELF, SELF Referring Unavailable BONEZZI, DONNA M Primary Care Unavailable USHER, TALYA R Attending Unavailable SELF, SELF Referring Unavailable BONEZZI, DONNA M Primary Care Unavailable USHER, TALYA R Attending Unavailable SELF, SELF Referring Unavailable BONEZZI, DONNA M Primary Care Unavailable BONEZZI, DONNA M Primary Care Unavailable SELF, SELF Referring Unavailable EDGAR AYERS Attending Unavailable Leanne SALGADO, Dr. Hoyos Primary Care Provider Shashank SALGADO, Dr. Argueta Attending Provider Shashank SALGADO, Dr. Argueta Referring Provider Leanne SALGADO, Dr. Hoyos Referring Provider [phone] Jorge SALGADO, Dr. [...] Referring Provider Katie Aldana Attending Provider Katie Aldnaa Referring Provider Dr. Jhon Priest DO Emergency Provider Dr. Jhon Priest DO Attending Provider Shashank SALGADO, Dr. Argueta Other Provider Dr. Kaiden Rausch DO Emergency Provider Mando SALGADO, Gerald Garcia [facility] parvez VELARDE, KASSIE Primary Care Unavailable Shalom LOWERY, Dr. Richey Attending Provider Ungerer RV SERVICER-C, Louise Attending Provider [phone] Ungerer RV SERVICER-C, Louise Referring Provider Lenane SALGADO, Dr. Hoyos Primary Care Provider Shashank SALGADO, Dr. Argueta Attending Provider Leanne SALGADO, Dr. Hoyos Referring Provider Noe SALGADO, Dr. Mcgee Emergency Provider Jorge SALGADO, Dr. Tabor Primary Care Provider Shashank SALGADO, Dr. Argueta Attending Provider Leanne SALGADO, Dr. Hoyos Referring Provider Jroge SALGADO, Dr. Tabor Attending Provider Noe SALGADO, Dr. Mcgee Attending Provider Shashank SALGADO, Dr. Argueta Referring Provider Katie Aldana Attending Provider Jorge SALGADO, Dr. Tabor Primary Care Provider Jorge SALGADO, Dr. Tabor Referring Provider [phone] Katie Aldana Referring Provider Shashank SALGADO, Dr. Argueta Attending Provider Jorge SALGADO, Dr. Tabor Primary Care Physician Katie Aldana Attending Physician Shashank SALGADO, Dr. Argueta Nurse Practitioner Dr. Kaiden Rausch DO Attending Physician Dr. Kaiden Rausch DO Emergency Department Physic erin Jorge SALGADO, Dr. Tabor Referring Provider [phone] Lore RV SERVICER-C, Louise Attending Physician Jorge SALGADO, Dr. Tabor Attending Physician Dr. Everardo Espinoza MD Attending Physician [phone] Dr. Everardo Espinoza MD Emergency Department Phys ician Shashank SALGADO, Dr. Argueta Attending Physician PRACHI KASSIE Primary Care Unavailable ALDO PARK Consulting Unavailable JOHAN LUJAN Admitting Unavailable ANGELLA JONES Referring Unavailable MICHELLE PATEL Attending UnavailKAIDEN Avendaño Referring Unavailable KENDALL CONROY Consulting Unavaila TRICE William Attending Unavailable HEBERT VITAL Admitting Unavaila DYLAN Otoole Primary Care Unavailable Jorge SALGADO, Dr. Efewongbe Primary Care Physician Dr. Kaiden Rausch DO Attending Physician Dr. Kaiden Rausch DO Emergency Department Physic erin Donna Perdomo MD Primary Care Provider Kendall Conroy Consulting Unavailable Kaiden Rausch Attending Unavailable Oleghe, Efewongbe Primary Care Unavailable Oleghe, Efewongbe Primary Care Unavailable Kaiden Rausch Attending Unavailable Kendall Conroy Attending Unavailable Kendall Conroy Referring Unavailable Oleghe, Efewongbe Primary Care Unavailable Oleghe, Efewongbe Primary Care Unavailable Oleghe, Efewongbe Referring Unavailable Louise Torrez Attending Unavailable Kendall Conroy Attending Unavailable Kendall Conroy Referring Unavailable Donna Perdomo Primary Care Unavailable Kendall Conroy Attending Unavailable Kendall Conroy Referring Unavailable Oleghe, Efewongbe Primary Care Unavailable Katie Mayo Attending Unavailable Katie Mayo Referring Unavailable Oleghe, Efewongbe Primary Care Unavailable Kendall Conroy Attending Unavailable Katie Mayo Referring Unavailable Oleghe, Efewongbe Primary Care Unavailable Oleghe, Efewongbe Primary Care Unavailable Oleghe, Efewongbe Referring Unavailable Oleghe, Efewongbe Attending Unavailable Kendall Conroy Attending Unavailable Kendall Conroy Referring Unavailable Oleghe, Efewongbe Primary Care Unavailable Oleghe, Efewongbe Referring Unavailable Katie Mayo Attending Unavailable Oleghe, Efewongbe Primary Care Unavailable Kendall Conroy Attending Unavailable Oleghe, Efewongbe Primary Care Unavailable Oleghe, Efewongbe Referring Unavailable Kendall Conroy Attending Unavailable Oleghe, Efewongbe Primary Care Unavailable Oleghe, Efewongbe Referring Unavailable Kendall Conroy Attending Unavailable Oleghe, Efewongbe Primary Care Unavailable Oleghe, Efewongbe Referring Unavailable Oleghe, Efewongbe Primary Care Unavailable Oleghe, Efewongbe Referring Unavailable Oleghe, Efewongbe Attending Unavailable Kendall Conroy Attending Unavailable Kendall Conroy Referring Unavailable Oleghe, Efewongbe Primary Care Unavailable Baddour, Kendall Attending Unavailable Baddour, Kendall Referring Unavailable Bonezzi, Donna Primary Care Unavailable Everardo Espinoza Attending Unavailable Bonezzi, Donna Primary Care Unavailable Mindel, Edgar Referring Unavailable Mindel, Edgar Attending Unavailable Oleghe, Efewongbe Primary Care Unavailable Jhon Priest Attending Unavailable Bonezzi, Dnona Referring Unavailable Oleghe, Efewongbe Attending Unavailable Baddour, Kendall Attending Unavailable Bonezzi, Donna Referring Unavailable Baddour, Kendall Attending Unavailable Bonezzi, Donna Primary Care Unavailable Bonezzi, Donna Referring Unavailable Oleghe, Efewongbe Referring Unavailable Atanasov, Katie Attending Unavailable Bonezzi, Donna Referring Unavailable Oleghe, Efewongbe Attending Unavailable Oleghe, Efewongbe Primary Care Unavailable Baddour, Kendall Attending Unavailable Baddour, Kendall Referring Unavailable Bonezzi, Donna Primary Care Unavailable Oleghe, Efewongbe Primary Care Unavailable Atanasov, Katie Referring Unavailable Atanasov, Katie Attending Unavailable Oleghe, Efewongbe Primary Care Unavailable Atanasov, Katie Referring Unavailable Atanasov, Katie Attending Unavailable Oleghe, Efewongbe Primary Care Unavailable Ungerer, Louise Referring Unavailable UngererLaurenLouise Attending Unavailable Allergies Allergy Classification Reported Allergen(s) Allergy Type Date of Onset Reaction(s) Facility Anti-Epileptic Agents (18 sources) Phenytoin; Translations: [Dilantin *ANTICONVULSANTS*] Drug Allergy Mental Status Change, Other: See Comments [facility] Work Phone: Comment on above: anxiety and hallucin ations Penicillin V (8 sources) Penicillin V; Translations: [Penicillin V Potassium *PENICILLINS*] Drug Allergy Rash [facility]; [facility] Work Phone: Penicillins (antibiotic) (1 source) Penicillins Drug Allergy 014 Rash [facility] Prochlorperazine (1 source) Prochlorperazine Drug Allergy 022 Intolerance [facility] Quinolones (antibiotic) (1 source) Ciprofloxacin Drug Allergy 024 Mental Status Change [facility] Soybean preparation (1 source) Soybean preparation Drug Allergy Other: See Comments [facility] (20 sources) levETIRAcetam; Translations: [LEVETIRACETAM] Drug Allergy Mental Status Change, Other: See Comments, Other, Hallucination [facility] Repository Comment on above: Hallucinations (20 sources) Penicillins; Translations: [PENICILLINS] Propensity to adverse reactions to drug (disorder) Rash, Hives [facility] Repository (1 source) levETIRAcetam; Translations: [KEPPRA] Drug Allergy [facility] Repository (20 sources) levETIRAcetam; Translations: [Keppra *ANTICONVULSANTS*] Drug Allergy [facility] Work Phone: (20 sources) penicillin v; Translations: [Penicillin V Potassium *PENICILLINS*] Drug Allergy Rash [facility] Work Phone: (20 sources) Phenytoin; Translations: [Dilantin *ANTICONVULSANTS*] Drug Allergy Other (See Comments), Mental Status Change, Other [facility] [place] Comment on above: anxiety and hallucin ations hallucinations (20 sources) Iodides; Translations: [IODIDES] Propensity to adverse reactions to drug Other: See Comments [place], [place] (20 sources) Shellfish; Translations: [shellfish derived] Allergy to substance Other [facility] Comment on above: seizures (20 sources) Soy protein; Translations: [soy] Propensity to adverse reactions NEEDS FOLLOW-UP [facility] Comment on above: PT'S MOTHER STATES IT CAN INTERACT WITH HER SEIZURE MEDICATION (20 sources) Prochlorperazine; Translations: [PROCHLORPERAZINE] Drug Allergy Intolerance [facility] Comment on above: patient states it ma kes me go crazy (12 sources) Shellfish; Translations: [SHELLFISH CONTAINING PRODUCTS] Drug Allergy Other: See Comments [facility] (11 sources) Soybean preparation; Translations: [SOY PROTEIN] Drug Allergy 10-18-2 021 Other: See Comments [facility] (8 sources) Other Propensity to adverse reactions 023 Anxiety [facility] (20 sources) Shellfish-Derived Products Propensity to adverse reactions 023 Other [facility] (16 sources) Soybean Oil Drug Allergy 021 [facility] (2 sources) Ciprofloxacin; Translations: [CIPROFLOXACIN] Drug Allergy 024 Mental Status Change [facility] (13 sources) Barium Sulfate; Translations: [BARIUM SULFATE] Drug Allergy Other [facility] Comment on above: Seizure (13 sources) technetium-99m; Translations: [TECHNETIUM-99M] Propensity to adverse reactions Other [facility] Comment on above: seizure /intubation (1 source) Magnesium; Translations: [MAGNESIUM] Drug Allergy [facility] Other [place] [facility] (1 source) Barium sulfate Drug allergy (disorder) [facility] Repository (1 source) Phenytoin Drug Allergy [facility] Repository (1 source) Prochlorperazine Drug Allergy [facility] Repository (1 source) technetium-99m Drug allergy (disorder) [facility] Repository Medications Current Medications Medication Drug Class(es) Dates Sig (Normalized) Sig (Original) acetaminophen 325 mg / butalbital 50 mg / caffeine 40 mg oral tablet (7 sources) Barbiturate, Central Nervous System Stimulant, Methylxanthine [...] for Mild Pain. 40 tablet 1 11/01/2023 Active acetaminophen 325 mg / HYDROcodone bitartrate [...] 6 HOURS 5 7 October 17, 2021 Diazepam (Valtoco) 10 mg/spray (0.1 mL) spray,non-aerosol (12 sources) Start: 11-07-2024 Diazepam (Valtoco) 10 mg/spray (0.1 mL) spray,non-aerosol Active 0 .ROUTE .COMPLEX 5 0 November 07, 2024 6:41pm Seizures 1 spray intranasally daily as needed for breakthrough seizures. Start: 08-08-2022 End: 11-07-2024 Diazepam (Valtoco) 10 mg/spr ay (0.1 mL) spray,non-aerosol Discontinued 10 mg INTRANASAL NEEDED as needed for Seizures August 08, 2022 12:00am November 07, 2024 6:45pm Start: 08-08-2022 Diazepam (Valt oco) 10 mg/spray (0.1 mL) spray,non-aerosol Active 10 mg INTRANASAL NEEDED as needed for Seizures August 08, 2022 12:00am 30 ml eculizumab 10 mg/ml injection (20 sources) Complement Inhibitor Start: 10-14-2020 Eculizuma b (Soliris) 300 mg/30 mL Solution Active 1200 [...] Taylor 07/30/22 at 1810 Start: 08-18-2021 End: 11-07-2024 take 1 tablet by mouth at bedtime Escitalopram 10 MG tablet Indications: Localization-related (focal) (partial) idiopathic epilepsy and epileptic syndromes with seizures of localized onset, intractable, without status epilepticus Take 1 tablet by mouth at bedtime. 30 tablet 11 08/12/2023 Active take 10 mg by mouth once daily [...] Quantity: 60 {Tablet} Refills: 0 Ordered: 24-Dec-2020 Oliviajv Dylan Angulo Start : 24-Dec-2020 Active End: 04-01-2022 take 1 tablet by mouth once daily at bedtime hydrOXYzine HCl (ATARAX) 50 mg tablet Take 50 mg by mouth daily at bedtime. 04/01/2022 Discontinued Comment on above: Take 50 mg by mouth daily at bedtime. IUD'S IU (2 sources) IUD'S IU Indicat ions: paraguard by Intrauterine route Indications: paraguard 0 Active 24 hr lamoTRIgine 50 mg extended release oral tablet (20 sources) Mood Stabilizer, Anti-epileptic Agent Start: 02-05-2025 End: 02-05-2025 take 1 tablet by mouth twice daily Lamotrigine 50 mg tablet extended release 24hr Active 150 mg PO TWICE A DAY 60 February 05, 2025 11:08am Complies with drug therapy Start: 12-12-2024 End: 02-05-2025 take 1 tablet by mouth twice daily Lamotrigine 300 mg tablet extended release 24hr Discontinued 300 mg PO TWICE A DAY 60 December 12, 2024 11:02am February 05, 2025 11:09am Start: 12-11-2024 End: 12-12-2024 take 1 tablet by mouth once daily Lamotrigine 300 mg tablet extended release 24hr Discontinued 300 mg PO daily 60 December 11, 2024 12:00am December 12, 2024 11:03am Start: 03-28-2024 End: 12-12-2024 take 1 tablet by mouth twice daily LamoTRIgine 250 MG Tab SR 24 HR Take 1 tablet by mouth 2 times daily. 180 tablet 3 03/28/2024 Active Start: 02-04-2024 take 1 tablet by yumi [...] mg, Oral, Daily, F irst dose on Wed07/30/22 at 1810 Start: 10-14-2020 take 200 mg by mouth [...] 12, 2024 3:10pm seizures Start: 10-14-2020 take 250 mg by mouth [...] in AM and four(4.0) tablets at bedtime levonorgestrel 0.106276 mg/hr intrauterine system (20 sources) Progestin, Progestin-containing Intrauterine Device Start: 09-29-2022 End: 09-29-2022 Levonorgestrel (Mirena, 52 MG,) 20 MCG/DAY 1 Intra Uterine Device by Intrauterine route once. 09/29/2022 08/12/2023 Discontinued Start: 10-14-2020 Levonorgestrel (Mirena) 20 mcg/24 hours (6 yrs) 52 mg Intrauterine Device Active 20 ug INTRA-UTER DIRECTED October 14, 2020 12:00am control Complies with drug therapy levonorgestrel ( MIRENA) 20 mcg/24 hours (8 yrs) 52 mg IUD 1 Each by INTRAUTERINE route one time only. Suspended levonorgestrel ( Mirena) 20 MCG/DAY IUD 1 each by IntraUTERine route. 0 Active Comment on above: 1 Each by INTRAUTERI NE route one time only. lubiprostone 0.008 mg oral capsule (20 sources) Chloride Channel Activator Start: 01-27-2025 take 1 capsule by mouth once daily Start: 01-27-2025 take 1 capsule by mo uth once daily Start: 01-27-2025 take 1 capsule by mo uth once daily Start: 10-10-2024 take 1 capsule by mo uth once daily Lubiprostone (Amitiza) 8 mcg capsule [...] on above: Take 1 tablet by yumi twice daily for 14 days. midazolam 50 mg/ml nasal spray (2 sources) Benzodiazepine Start: 02-05-2025 End: 02-05-2025 Midazolam (Nayzilam) 5 mg/spray (0.1 mL) spray,non-aerosol Discontinued 5 mg INTRANASAL ONCE February 05, 2025 12:00am February 05, 2025 11:08am as a single dose; may repeat dose in other nostril after 10 minutes if inadequate response Start: 02-05-2025 Midazolam (Nay zilam) 5 mg/spray (0.1 mL) spray,non-aerosol Active 0 .Route .COMPLEX 2 February 05, 2025 12:00am Administer 1 spray intranasally for seizure lasting 5 minutes or more; may repeat dose in other nostril after 10 minutes if inadequate response Complies with drug therapy Promethazine (1 source) Phenothiazine Start: 10-07-2019 promethazine ( PHENERGAN) tablet 12.5 mg 30 ml ravulizumab-cwvz 10 mg/ml injection (17 sources) Start: 10-06-2022 Ravulizumab-cw vz (Ultomiris) 300 MG/30ML Solution 130 mL by Intravenous route every 56 days. 1300 mL 10/06/2022 Active Ravulizumab-Cwvz (20 sources) Start: 02-05-2025 Ravulizumab-Cw vz (Ultomiris) 100 mg/mL solution Active 3300 mg .Route .q8 weeks 33 2 February 05, 2025 11:08am 3300 mg IV infusion over 1 hour every 8 weeks. Complies with drug therapy Start: 11-07-2024 End: 02-05-2025 Ravulizumab-Cwvz (Ultomiris) 100 mg/mL solution Discontinued 3300 mg .Route .q8 weeks November 07, 2024 6:47pm February 05, 2025 11:09am 3300 mg IV infusion over 1 hour every 8 weeks. Start: 11-07-2024 Ravulizumab-Cw vz (Ultomiris) 100 mg/mL solution Active 3300 mg .Route .q8 weeks November 07, 2024 6:47pm 3300 mg IV infusion over 1 hour every 8 weeks. Complies with drug therapy Start: 11-07-2024 Ravulizumab-Cw vz (Ultomiris) 100 mg/mL solution Active 3300 mg .Route .q8 weeks November 07, 2024 6:47pm 3300 mg IV infusion over 1 hour every 8 weeks. Start: 07-27-2024 End: 11-07-2024 Ravulizumab-Cwvz (Ultomiris) 100 mg/mL solution Discontinued 3300 mg .Route .q8 weeks July 27, 2024 4:14pm November 07, 2024 6:47pm 3300 mg IV infusion over 1 hour [...] (Ultomiris) 100 mg/mL solution Discontinued 0 .ROUTE .[facility] April 12, 2024 1:00am July 06, 2024 12:11pm 300mg/30ml 130ml IV every 56 days; Ultomiris (4 sources) Start: 02-05-2022 Ultomiris Acti ve February 05, 2022 12:00am q 8 weeks Start: 02-05-2022 Ultomiris Acti ve February 04, 2022 11:00pm q 8 weeks Start: 02-05-2022 Ultomiris Acti ve February 05, 2022 12:00am 24 hr divalproex sodium 500 mg extended release oral tablet (2 sources) Mood Stabilizer, Anti-epileptic Agent Start: 02-05-2025 End: 02-05-2025 take 1 tablet by mouth twice daily Divalproex 500 mg tablet extended release 24 hr Active 500 mg PO TWICE A DAY 60 4 February 05, 2025 11:09am Complies with drug therapy zonisamide 100 mg oral capsule (20 sources) Anti-epileptic Agent Start: 02-09-2024 End: 03-01-2025 take 2 capsules by mouth in the morning, then take 3 capsules by mouth at bedtime zonisamide 100 MG capsule TAKE 2 CAPSULES BY MOUTH IN THE MORNING AND 3 CAPSULES AT BEDTIME 150 capsule 11 02/09/2024 03/01/2025 Active Start: 07-30-2023 take 2 tablets by mo [...] capsul e 200 mg Start: 03-26-2019 End: 01-11-2025 take 1 capsule by mouth once daily in the evening Zonisamide 100 mg capsule Discontinued 300 mg PO EVERY EVENING 90 4 April 12, 2024 5:54pm January 11, 2025 1:57pm seizures Start: 03-26-2019 End: 04-12-2024 take 1 [...] 100 capsule Disco ntinued 200 mg PO 799December 23, 2017 12:00am April 12, 2024 5:55pm [...] 3 capsules by m outh once daily. Completed/Discontinued Medications Medication Drug Class(es) Dates Sig [...] hours as needed. 500 ml albumin human, residential 50 mg/ml injection (10 sources) Human Serum [...] 5 % IV solutio n 2,000 mL [id number] 200 actuat albuterol 0.09 mg/actuat metered dose [...] Comment on above: Take 1 capsule by [facility] three times daily as needed for cough. [...] sodium chloride 0.9 % 100 mL IVPB cenobamate 100 mg oral tablet (7 sources) Start: 11-07-2024 End: 12-11-2024 take 1 tablet by mouth once daily Cenobamate (Xcopri) 100 mg tablet Discontinued 100 mg PO DAILY 01 06November 07, 2024 12:00am December 11, 2024 10:30am Begin after completing Xcopri 50mg/100mg titration pack. Cenobamate (7 sources) Start: 11-07-2024 End: 12-11-2024 take 1 tablet by mouth once Cenobamate (Xcopri Titration Pack) 12.5 mg (14)- 25 mg (14) tablets,dose pack Discontinued 0 PO per package directions 28 November 07, 2024 12:00am December 11, 2024 10:30am Week 1 to 4: PO PER PKG DIR Cenobamate (7 sources) Start: 11-07-2024 End: 12-11-2024 Cenobamate (Xcopri Titration Pack) 50 mg (14)- 100 mg (14) tablets,dose pack Discontinued 0 PO per package directions 28 November 07, 2024 12:00am December 11, 2024 10:30am PO PER PKG DIR; began after completing 2-week course of Xcopri 25 mg daily cetirizine hydrochloride 10 mg oral tablet (20 sources) Histamine-1 Receptor Antagonist Start: 12-06-2018 End: 12-13-2018 take 1 tablet by mouth once daily ZyrTEC Allergy 10 MG Oral Tablet 1 (one) Tablet daily for 7 days Quantity: 7 {Tablet} Refills: 0 Ordered: 23-Dec-2018 Oliviajv Dylan OliviaDylan carias Start : 06-Dec-2018 End : 13-Dec-2018 Inactive [...] for 120 days Refills: 0 Ordered: 30-Aug-2015 Frederic HENRYPrerna Start : 28-Jun-2015 End : 30-Aug-2015 Discontinued [...] Quantity: 14 {Tablet} Refills: 0 Ordered: 24-Jan-2018 OliviaDylan carias Mary Start : 24-Jan-2018 End : 31-Jan-2018 Inactive Start: 08-09-2015 End: 08-19-2015 take 2 tablets by mouth once daily BIAXIN XL PAC, 500MG (Oral Tablet Extended Release 24 Hour) 2 (two) Tablet ER 24HR daily for 10 days Quantity: 20 {Tablet} Refills: 0 Ordered: 09-Aug-2015 Dlyan Velarde Mary Start : 09-Aug-2015 End : 19-Aug-2015 Inactive Start: 08-09-2015 End: 08-19-2015 take 2 tablets by mouth once daily BIAXIN XL PAC, 500MG (Oral Tablet Extended Release 24 Hour) 2 (two) Tablet ER 24HR daily for 10 days Quantity: 20 {Tablet} Refills: 0 Ordered: 09-Aug-2015 Dylan Velarde CNP, CNP, Mary E Start : 09-Aug-2015 End : 19-Aug-2015 Inactive clindamycin 150 mg oral capsule (20 sources) Lincosamide Antibacterial take 1 tablet by mouth every six hours Clindamycin HCl 150 MG Oral Capsule one tab q6hrs (150 MG) Inactive clotrimazole 10 mg oral lozenge (20 sources) Azole Antifungal Start: 03-08-20 18 End: 03-15-20 18 Clotrimazole 10 MG Mouth/Throat Maribel 1 (one) Maribel 5x daily for 7 days Quantity: 35 {Maribel} Refills: 0 Ordered: 08-Mar-2018 Dylan Velarde Mary Start : 08-Mar-2018 End : 15-Mar-2018 Inactive Diazepam (20 sources) Benzodiazepine Start: 11-08-19 25 End: 02-06-20 25 Diazepam (Valtoco) 10 mg/spray (0.1 mL) spray,non-aerosol Discontinued 0 .ROUTE .COMPLEX 5 0 November 07, 2024 6:41pm February 05, 2025 10:40am Seizures 1 spray intranasally daily as needed for breakthrough seizures. Start: 11-07-2024 Diazepam (Valt oco) 10 mg/spray (0.1 mL) spray,non-aerosol Active 0 .ROUTE .COMPLEX 5 0 November 07, 2024 6:41pm Seizures 1 spray intranasally daily as needed for breakthrough seizures. Complies with drug therapy Start: 02-21-2024 Valtoco 10 MG Dose 10 [...] needed. 08/26/2022 08/12/2023 Discontinued (Reorder) Start: 08-08-2022 End: 11-07-2024 Diazepam (Valtoco) 10 mg/spr ay (0.1 mL) spray,non-aerosol Discontinued 10 mg INTRANASAL NEEDED as needed for Seizures August 08, 2022 12:00am November 07, 2024 6:45pm Start: 08-08-2022 Diazepam (Valt oco) 10 mg/spray [...] error) Comment on above: one as directed. diclofenac 18 mg oral capsule (20 sources) Nonsteroidal Anti-inflammatory Drug Start: 5 End: 5 take 1 capsule by mouth three times daily ZORVOLEX, 18MG (Oral Capsule) 1 (one) Capsule tid for 2 days Quantity: 6 {Capsule} Refills: 0 Ordered: 01-Mar-2015 Dylan Velarde Mary Start : 26-Feb-2015 End : 28-Feb-2015 Inactive docusate sodium 100 mg oral capsule (2 sources) Start: 3 End: 3 docusate sodium (Colace) capsule 100 mg doxycycline monohydrate 100 mg oral tablet (20 sources) Tetracycline-class Drug Start: 3 End: 3 take 1 tablet by mouth twice daily [...] Anesthetic Start: End: lidocaine-EPINEPHrine (Xylocaine W/EPI) 1 %-1:[id number] injection ergocalciferol 1.25 mg oral capsule (20 sources) Provitamin D2 Compound Start: 016 End: take 1 capsule by mouth two times weekly Ergocalciferol 67031 UNIT Oral Capsule 1 (one) Capsule Capsule twice week for 0 days Quantity: 24 {QS} Refills: 0 Ordered: 30-Nov-2017 Kaylyn Juares Start : 30-Oct-2015 End : 30-Nov-2017 Inactive 1 ml fentaNYL 0.05 mg/ml injection (1 source) Opioid Agonist Start: 025 End: 025 50 mcg, INTRAVENOUS, EVERY 5 MINUTES NEEDED, 2 doses, Starting on Wed10/06/24 at 2147, Until Wed10/06/24 at 2243, breakthrough pain folic acid 1 mg oral tablet (10 sources) Start: End: take 1 tablet by mouth once daily [...] Quantity: 20 {Tablet} Refills: 0 Ordered: 01-Mar-2015 Slarb Prerna HENRY Start : 26-Feb-2015 End : 01-Mar-2015 Discontinued lactulose 667 mg/ml oral solution (19 sources) Osmotic Laxative Start: 07-06-2024 End: 07-25-2024 [...] 06, 2024 1:00am July 25, 2024 4:23pm lidocaine hydrochloride 20 mg/ml mucous membrane topical solution (12 sources) Antiarrhythmic, Amide Local Anesthetic Start: 10-13-2024 End: 01-11-2025 take 1 mL by mouth three times daily as needed for pain Lidocaine Hcl (Lidocaine Viscous) 2 % solution Discontinued 10 mL PO THREE TIMES A DAY as needed for pain 100 0 October 13, 2024 12:00am January 11, 2025 1:56pm Pharyngeal damage during airway intubation Other specified injuries of pharynx and cervical esophagus, initial encounter Start: 10-13-2024 End: 01-11-2025 take 1 mL by mouth three times daily as needed for pain Lidocaine Hcl (Lidocaine Viscous) 2 % solution Discontinued 10 mL PO THREE TIMES A DAY as needed for pain 100 0 October 13, 2024 12:00am January 11, 2025 1:56pm Pharyngeal damage during airway intubation Other specified [...] for pain 100 October 13, 2024 12:00am linaclotide 0.072 mg oral capsule (19 sources) Guanylate Cyclase-C Agonist Start: 07-26-2024 End: 08-16-2024 take 1 capsule by mouth once daily in the morning Linaclotide (Linzess) 72 mcg capsule Discontinued 72 ug PO EVERY MORNING 30 2 July 26, 2024 12:00am August 16, 2024 7:52am LORazepam 0.5 mg oral tablet (20 sources) Benzodiazepine Start: 10-01-2022 End: 08-12-2023 take 0.5-1 tablets by mouth once daily [...] {Tablet} Refills: 0 Ordered: 31-Jan-2016 Dylan Velarde Mary Start : 31-Jan-2016 End : 01-Mar-2016 Inactive [...] days Refills: 0 Ordered: 31-Jan-2016 Dylan Velarde Mary Start : 31-Jan-2016 End : 01-Mar-2016 Inactive [...] for 0 days Refills: 0 Ordered: 06-Dec-2018 Prerna De La Garza LPN Start : 25-Oct-2018 End : 06-Dec-2018 Inactive [...] Comment on above: Take 1 capsule by [facility] twice daily for 7 days. nystatin 350327 unt/ml oral suspension (1 source) Polyene Antifungal Start: 07-24-2018 End: 10-07-2019 take 5 mL by mouth four times daily nystatin (MYCOSTATIN) 900924 UNIT/ML suspension Take 5 mLs by mouth [...] Start : 24-Dec-2017 End : 24-Oct-2018 Inactive ondansetron 4 mg disintegrating oral tablet (12 sources) Serotonin-3 Receptor Antagonist Start: 10-13-2024 End: 01-11-2025 take 1 tablet by mouth every six hours as needed for nausea and vomiting Ondansetron 4 mg tablet,disintegrating Discontinued 4 mg PO EVERY 6 HOURS as needed for nausea and vomiting 14 0 October 13, 2024 12:00am January 11, 2025 1:55pm Nausea Nausea Ondansetron 4mg/2ml (ZOFRAN) injection 4 mg (2 [...] OXcarbazepine 300 mg oral tablet (20 sources) Anti-epileptic Agent Start: 10-30-2022 End: 11-02-2022 take 1 [...] Quantity: 15 {Tablet} Refills: 0 Ordered: 01-Mar-2015 Frederic HENRYPrerna Start : 26-Feb-2015 End : 01-Mar-2015 Discontinued phenol 14 mg/ml mouthwash (1 source) Start: 9 End: 0 take 1 spray(s) by mouth every two hours as needed phenol 1.4 % LIQD mouth spray Take 1 spray by mouth every 2 hours as needed for Sore Throat 118 mL 0 07/24/2018 10/07/2019 Discontinued (LIST CLEANUP) polyethylene glycol 3350 47973 mg powder for oral solution (8 sources) [...] needed (constipation). 0 Active polyethylene glycol 3350 363243 mg / potassium chloride 2970 mg / sodium bicarbonate 6740 mg / sodium chloride 5860 mg / sodium sulfate 04070 mg powder for oral solution (10 sources) [...] oral tablet (20 sources) Start: 09-30-19 End: 06-06-20 23 take 1 tablet by mouth three times daily pyRIDostigmine 60 MG tablet Take 1 tablet by mouth 3 (three) times a day. 90 tablet 11 09/29/2022 10/06/2022 Discontinued (Therapy completed) Start: 10-07-2019 [...] th 1-3 HOURS PRIOR TO BEDTIME sennosides, residential 8.6 mg oral tablet (6 sources) Start: [...] Start: 07-30-2022 End: 08-07-2022 5-250 mL/hr, IntraVENous, GA N, if patient receiving piggyback infusions and [...] After every IV line use, Starting on Tayolr 07/30/22 at 1806 For Line Patency: Peripheral [...] oral tablet (1 source) Opioid Agonist Start: 07-25-19 End: 07-30-19 take 1 tablet by mouth every six hours as needed for pain traMADol (ULTRAM) 50 mg tablet Indications: Pelvic pain in female Take 1 tablet by mouth every 6 hours as needed for pain for up to 5 days. 20 tablet 0 07/24/2021 07/29/2021 Comment on above: Take 1 tablet by yumi th every 6 hours as needed for pain for up to 5 days. valproate (DEPACON) 270 mg in dextrose 5 % 100 mL IVPB (1 source) Start: 10-07-19 End: 10-07-19 take 1 dose by mouth every eight [...] to oral products as soon as possible. Problems Active Problems Problem Classification Problem Date Documented Da te Episodic/Chronic Abdominal pain (20 sources) Flank pain; Translations: [Pain, flank, bilateral] Resolved: 7 02-10-2017 Episodic Adjustment disorders (10 sources) Adjustment disorder with mixed anxiety and depressed mood; Translations: [Adjustment disorder with mixed anxiety and depressed mood] Onset: 3 Chronic Anxiety disorders (20 sources) Anxiety; Translations: [Anxiety] [...] implant and graft, initial encounter] 08-23-2021 Episodic Conditions associated with dizziness or vertigo (20 sources) Dizziness; Translations: [Dizziness and giddiness] 05-27-2022 Episodic Contraceptive and procreative management (20 sources) Patient encounter status; Translations: [Encounter for removal of intrauterine contraceptive device] Episodic Diseases of mouth; excluding dental (20 sources) Parotitis; Translations: [Hypertrophy of salivary gland] 02-11-2018 Episodic Comment on above: diagnosed in [place] ? recurrance was given clinda and prednisone Diseases of white blood cells (20 sources) Leukocytosis; Translations: [Elevated WBC count] Onset: 5 Resolved: 1 07-19-2019 Chronic E Codes: Fall (20 sources) Fall (on) (from) other stairs and steps, initial encounter; Translations: [Fall down stairs] 05-27-2022 Episodic E Codes: Natural/environment (20 sources) Insect bite - wound; Translations: [Insect bite] Resolved: 1 07-19-2019 Episodic Epilepsy; convulsions (20 sources) Epilepsy, unspecified, not intractable, without status epilepticus; Translations: [Epilepsy] Onset: 4 Resolved: 4 02-11-2018 Chronic Comment on above: on lamictal and zoni samide on lamictal and zoni samide, wi Epilepsy; convulsions (20 sources) Seizure; Translations: [...] MR and massage, sees Dr. Hua at [facility] who sees her for seizure and sent to neurologist at [facility] but not optimal interactionhas used [...] parametritis and pelvic cellulitis] Episodic Intracranial injury (19 sources) Concussion injury of body structure; Translations: [Concussion] 06-16-2023 Episodic Lymphadenitis (20 sources) Lymphadenopathy; Translations: [Lymph node enlargement] 02-11-2018 Episodic Comment on above: left side of face Mycoses (20 sources) Candidiasis of mouth; Translations: [Gisselle, oral] Resolved: 1 03-08-2018 Episodic Nonspecific chest pain (20 sources) Atypical chest pain; Translations: [Chest pain] Resolved: 1 02-11-2018 Episodic Comment on above: pleurisy versus othe r? Work up in past, silent reflux sprirometry showing mild airway obst Nutritional deficiencies (20 sources) Vitamin D deficiency; Translations: [Vitamin D deficiency] 02-11-2018 Chronic Other aftercare (20 sources) Long-term current use of anticoagulant; Translations: [halfway (current) use of anticoagulants] 05-27-2022 Episodic Other aftercare (20 sources) Post-discharge follow-up; Translations: [Encounter for follow-up [...] Episodic Other disorders of stomach and duodenum (20 sources) Gastroparesis syndrome; Translations: [Gastroparesis] Episodic Other ear and sense organ disorders (1 source) Otalgia, right ear; Translations: [Otalgia, unspecified] 10-11-2023 Episodic Other eye disorders (20 sources) Ocular pain, left eye; Translations: [Pain of left eye] Resolved: 02-11-2018 Episodic Comment on above: [facility]? opth raisa barraza?-- vs eye pathology ?-- called dr long [...] at work, sent home Other gastrointestinal disorders (2 sources) Acute constipation; [...] Translations: [Abdominal distension (gaseous)] 08-16-2024 Episodic Other hereditary and degenerative nervous system conditions (16 sources) Restless legs; Translations: [Restless legs syndrome] Onset: 3 10-06-2022 Chronic Other injuries and conditions due to external causes (1 source) Injury of abdomen; Translations: [Unspecified injury of abdomen, initial encounter] Episodic Other injuries and conditions due to external causes (20 sources) Closed injury of head; Translations: [Unspecified injury of head, initial encounter] 05-27-2022 Episodic Other injuries and conditions due to external causes (19 sources) Injury of head; Translations: [Unspecified injury of head, initial encounter] 06-16-2023 Episodic Other lower respiratory disease (20 sources) Cough; Translations: [Cough] Resolved: 1 02-11-2018 Episodic Comment on above: gone Other lower respiratory disease (20 sources) Dyspnea; Translations: [Dyspnea, unspecified] 05-04-2020 Episodic Other lower respiratory disease (2 sources) Rib pain; Translations: [Pleurodynia] Episodic Other lower respiratory disease (20 sources) Pleuritic pain; Translations: [Pleurodynia] 09-07-2022 Episodic Other nervous system disorders (20 sources) [...] well.per neuro Dr. Gilmore, had stressors from [facility] on Oct 16 then thombosis of Rt [...] pain] 10-17-2021 Episodic Other nervous system disorders (20 sources) H/O: musculoskeletal disease; Translations: [Personal history of other diseases of the nervous system and sense organs] 09-07-2022 Episodic Other nervous system disorders (20 sources) H/O: epilepsy; Translations: [Personal history of other diseases of the nervous system and sense organs] 09-07-2022 Episodic Other nervous system disorders (20 sources) Abnormal movement; Translations: [Unspecified abnormal involuntary [...] Chronic Other nutritional; endocrine; and metabolic disorders (16 sources) Obese class I; Translations: [Obesity, unspecified] Onset: 3 10-06-2022 Chronic Other nutritional; endocrine; and metabolic disorders (20 sources) Hyperammonemia; Translations: [Disorder of urea cycle metabolism, 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 benadryl. Residual codes; unclassified (1 source) Procedure not done; Translations: [Procedure and treatment not carried out, unspecified reason] Episodic Residual codes; unclassified (9 sources) Sleep deprivation; Translations: [Sleep deprivation] 11-04-2024 Episodic Respiratory failure; insufficiency; arrest (adult) (1 [...] gravis) Unclassified (3 sources) BMI 28.0-28.9,adult Unclassified (6 sources) Encounter for dietary counseling and surveillance Unclassified (10 sources) Z71.3 - Dietary counseling and surveillance,K31.84 - Gastroparesis,K59.09 - Other constipation,G70.00 - Myasthenia gravis without (acute) exacerbation Unclassified (4 sources) Patient encounter status Unclassified (1 source) Contact with and (suspected) exposure to COVID-19; Translations: [Contact with and (suspected) exposure to COVID-19] Onset: 5 Urinary tract infections (1 source) Acute cystitis; Translations: [Acute cystitis with hematuria] Episodic Past or Other Problems Problem Classification Problem Date Documented Da te Episodic/Chronic Administrative/social admission (20 sources) Worried well; Translations: [First encounter by subject] Onset: 11-02-2024 07-26-2024 Episodic Asthma (20 sources) Asthma Complications of surgical procedures or medical care (20 sources) Injury of pharynx; Translations: [Other specified complications of surgical and medical care, not elsewhere classified, initial encounter] Onset: 10-13-2024 10-13-2024 Episodic External cause codes: Natural/environment (4 sources) Bitten or stung by nonvenomous insect and other nonvenomous arthropods, initial encounter; Translations: [Insect bite] 12-06-2018 Headache, including migraine (20 sources) Headache, including migraine Malaise and fatigue (20 sources) Fatigue; Translations: [Fatigue] Onset: 05-08-2024 Resolved: 11-12-2020 02-11-2018 Episodic Comment on above: chronic pain causing fatiue Nausea and vomiting (20 sources) Nausea; Translations: [Nausea] Onset: 10-13-2024 Resolved: 02-10-2017 03-02-2017 Episodic Other aftercare (1 source) Other prison (current) drug therapy; Translations: [OTH [facility] CURRENT DR] Onset: 12-17-2016 Episodic Other connective tissue disease (20 sources) Weakness of hand; Translations: [Weakness of hand] Onset: 04-08-2016 Resolved: 11-12-2020 02-11-2018 Episodic Other disorders of stomach and duodenum (1 source) Gastroparesis; Translations: [Gastroparesis] Onset: 11-02-2024 Episodic Other eye disorders (6 sources) Pain of left eye; Translations: [Eye pain, left] 10-24-2018 Comment on above: [facility]? opth raisa christi?-- vs eye pathology ?-- called dr long office and she will see her today at 10:30 Other gastrointestinal disorders (20 sources) Constipation; Translations: [Constipation, unspecified] Onset: 10-06-2022 04-04-2022 Episodic Other gastrointestinal disorders (1 source) Other constipation; Translations: [Other constipation] Onset: 11-02-2024 Episodic Other gastrointestinal disorders (1 source) Abdominal distension (gaseous); Translations: [Abdominal distension (gaseous)] Onset: 10-05-2024 Episodic Other injuries and conditions due to external causes (1 source) Other specified injuries of pharynx and cervical esophagus, initial encounter; Translations: [Other specified injuries of pharynx and cervical esophagus, initial encounter] Onset: 10-13-2024 Episodic Other lower respiratory disease (1 source) Shortness of breath; Translations: [Shortness of breath] Onset: 10-19-2024 Episodic Other screening for suspected conditions (not mental disorders or infectious disease) (20 sources) Serum potassium level below reference range; [...] Test Name Value Interpretation Reference Range Facility Lamotrigine (Lamictal) Level on 03-06-2025 LAMOTRIGINE 15.7 ug/mL Normal 2.0-20.0 [facility] Comment on above: Result Comment: Dete ction Limit = 1.0Performed at: [facility] - [facility] [address] [id number] Director: Dakota Beal MD, Phone: [phone] Performed By: #### L 500.4050, L3300.4400, L503.5510, L100.0500, L501.8100 ####[facility] [address] [place], [place], [id number] Neurology Visit Reporton Neurology Visit Report Normal [facility] Ammoniaon 03-02-2025 Ammonia (P) [Moles/Vol] 68.6 umol/L High [facility] Comment on above: Performed By: #### L 500.4050, L3300.4400, L503.5510, L100.0500, L501.8100 ####[facility] [address] [place], [address] CBC-Complete Blood Cnt No Di ffon 03-02-2025 Erythrocyte distribution width (RBC) [Ratio] 13.9 % Normal 11.6-14.6 [facility] Comment on above: Performed By: #### L 500.4050, L3300.4400, L503.5510, L100.0500, L501.8100 ####[facility] [address] [place], [address] Hematocrit (Bld) [Volume fraction] 41.8 % Normal 37-47 [facility] Comment on above: Performed By: #### L 500.4050, L3300.4400, L503.5510, L100.0500, L501.8100 ####[facility] [address] [place], [address] Hemoglobin (Bld) [Mass/Vol] 14.0 g/dL Normal 12.0-15.0 [facility] Comment on above: Performed By: #### L 500.4050, L3300.4400, L503.5510, L100.0500, L501.8100 ####[facility] [address] [place], [address] MCH (RBC) [Entitic mass] 30.2 pg Normal 27.0-32.0 [facility] Comment on above: Performed By: #### L 500.4050, L3300.4400, L503.5510, L100.0500, L501.8100 ####[facility] [address] [place], [address] MCHC (RBC) [Mass/Vol] 33.5 g/dL Normal 32-36 [facility] Comment on above: Performed By: #### L 500.4050, L3300.4400, L503.5510, L100.0500, L501.8100 ####[facility] [address] [place], [address] MCV (RBC) [Entitic vol] 90.3 fL Normal 81-99 [facility] Comment on above: Performed By: #### L 500.4050, L3300.4400, L503.5510, L100.0500, L501.8100 ####[facility] [address] [place], [address] Platelet mean volume (Bld) [Entitic vol] 9.3 fL Normal 6.2-12.0 [facility] Comment on above: Performed By: #### L 500.4050, L3300.4400, L503.5510, L100.0500, L501.8100 ####[facility] [address] [place], [address] Platelets (Bld) [#/Vol] 168 10*3/uL Normal 150-450 [facility] Comment on above: Performed By: #### L 500.4050, L3300.4400, L503.5510, L100.0500, L501.8100 ####[facility] [address] [place], [address] RBC (Bld) [#/Vol] 4.63 10*6/uL Normal 4.2-5.4 [facility] Comment on above: Performed By: #### L 500.4050, L3300.4400, L503.5510, L100.0500, L501.8100 ####[facility] [address] [place], [address] RDW SD 44.0 fl High 35.1-43.9 [facility] Comment on above: Performed By: #### L 500.4050, L3300.4400, L503.5510, L100.0500, L501.8100 ####[facility] [address] [place], [address] WBC (Bld) [#/Vol] 6.3 10*3/uL Normal 4.4-11.0 [facility] Comment on above: Performed By: #### L 500.4050, L3300.4400, L503.5510, L100.0500, L501.8100 ####[facility] [address] [place], [address] [facility] 03-02-2025 Albumin [Mass/Vol] 4.2 g/dL Normal 3.5-5.0 [facility] Comment on above: Performed By: #### L 500.4050, L3300.4400, L503.5510, L100.0500, L501.8100 ####[facility] [address] [place], [address] Albumin/Globulin [Mass ratio] 1.5 {ratio} Normal 0.9-2.4 [facility] Comment on above: Performed By: #### L 500.4050, L3300.4400, L503.5510, L100.0500, L501.8100 ####[facility] [address] [place], [address] ALK PHOS 69 U/L Normal 35-104 [facility] Comment on above: Performed By: #### L 500.4050, L3300.4400, L503.5510, L100.0500, L501.8100 ####[facility] [address] [place], [address] ALT [Catalytic activity/Vol] 10 U/L Normal <=34 [facility] Comment on above: Performed By: #### L 500.4050, L3300.4400, L503.5510, L100.0500, L501.8100 ####[facility] [address] [place], [address] AST [Catalytic activity/Vol] 15 U/L Normal <=31 [facility] Comment on above: Performed By: #### L 500.4050, L3300.4400, L503.5510, L100.0500, L501.8100 ####[facility] [address] [place], [address] Bilirubin [Mass/Vol] 0.29 mg/dL Normal 0.00-1.30 [facility] Comment on above: Performed By: #### L 500.4050, L3300.4400, L503.5510, L100.0500, L501.8100 ####[facility] [address] [place], [address] BUN/CRE 14.1 RATIO Normal 10-20 [facility] Comment on above: Performed By: #### L 500.4050, L3300.4400, L503.5510, L100.0500, L501.8100 ####[facility] [address] [place], [address] Calcium [Mass/Vol] 8.9 mg/dL Normal 7.6-11.0 [facility] Comment on above: Performed By: #### L 500.4050, L3300.4400, L503.5510, L100.0500, L501.8100 ####[facility] [address] [place], [address] Chloride [Moles/Vol] 108 mmol/L Normal 98-108 [facility] Comment on above: Performed By: #### L 500.4050, L3300.4400, L503.5510, L100.0500, L501.8100 ####[facility] [address] [place], [address] CO2 [Moles/Vol] 20.5 mmol/L Low 21.0-32.0 [facility] Comment on above: Performed By: #### L 500.4050, L3300.4400, L503.5510, L100.0500, L501.8100 ####[facility] [address] [place], [address] Creatinine [Mass/Vol] 0.65 mg/dL Low 0.70-1.20 [facility] Comment on above: Performed By: #### L 500.4050, L3300.4400, L503.5510, L100.0500, L501.8100 ####[facility] [address] [place], [address] GAP 10 Normal 5-15 [facility] Comment on above: Performed By: #### L 500.4050, L3300.4400, L503.5510, L100.0500, L501.8100 ####[facility] [address] [place], [address] GFR/1.73 sq M.predicted among non-blacks MDRD (S/P/Bld) [Vol rate/Area] 117 mL/min/{1.73_m2} Normal >60 [facility] Comment on above: Result Comment: mL/m in/1.73m2 CKD-EPI Creatinine Equation (2020) Performed By: #### L 500.4050, L3300.4400, L503.5510, L100.0500, L501.8100 ####[facility] [address] [place], [address] Globulin (S) [Mass/Vol] 2.9 g/dL Normal 2.2-4.2 [facility] Comment on above: Performed By: #### L 500.4050, L3300.4400, L503.5510, L100.0500, L501.8100 ####[facility] [address] [place], [address] Glucose [Mass/Vol] 86 mg/dL Normal 70-99 [facility] Comment on above: Performed By: #### L 500.4050, L3300.4400, L503.5510, L100.0500, L501.8100 ####[facility] [address] [place], [address] Potassium [Moles/Vol] 3.7 mmol/L Normal 3.3-5.1 [facility] Comment on above: Performed By: #### L 500.4050, L3300.4400, L503.5510, L100.0500, L501.8100 ####[facility] [address] [place], [address] Sodium [Moles/Vol] 139 mmol/L Normal 133-145 [facility] Comment on above: Performed By: #### L 500.4050, L3300.4400, L503.5510, L100.0500, L501.8100 ####[facility] [address] [place], [address] T PROT 7.0 g/dL Normal 5.9-8.4 [facility] Comment on above: Performed By: #### L 500.4050, L3300.4400, L503.5510, L100.0500, L501.8100 ####[facility] [address] [place], [address] Urea nitrogen [Mass/Vol] 9 mg/dL Normal 4-19 [facility] Comment on above: Performed By: #### L 500.4050, L3300.4400, L503.5510, L100.0500, L501.8100 ####[facility] [address] [place], [address] Valproic Acid (Depakene) Lev marco a 03-02-2025 VALPROIC ACID 88 ug/mL Normal 50-100 [facility] Comment on above: Result Comment: Valp roic Acid concentrations >100 ug/mL are potentiallytoxic. Performed By: #### L 500.4050, L3300.4400, L503.5510, L100.0500, L501.8100 ####[facility] [address] [place], [address] Neurology Visit Reporton Neurology Visit Report Normal [facility] Basic metabolic 2000 panelon 01-29-2025 Anion gap [Moles/Vol] 11 mmol/L Normal 8-15 [facility] Comment on above: Order Comment: Speci men Type: BLOOD SPECIMENOrdering Facility: [facility] Address: [address] [place] [address] Performed By: #### 2 4320-2, ####[facility]ORYCLIA [id number] [place] [address] [place] Calcium [Mass/Vol] 8.9 mg/dL Normal 8.5-10.2 [facility] Comment on above: Order Comment: Speci men Type: BLOOD SPECIMENOrdering Facility: [facility] Address: [address] [place] [address] Performed By: #### 2 4320-06, ####[facility]ORATORYCLIA [id number] [place] [address] [place] Chloride [Moles/Vol] 110 mmol/L High 98-107 [facility] Comment on above: Order Comment: Speci men Type: BLOOD SPECIMENOrdering Facility: [facility] Address: [address] [place] [address] Performed By: #### 2 2, ####[facility]ATORYCLIA [id number] [place] [id number] [place] CO2 [Moles/Vol] 21 mmol/L Low 22-30 [facility] Comment on above: Order Comment: Speci men Type: BLOOD SPECIMENOrdering Facility: [facility] Address: [address] [place] [address] Performed By: #### 2 2, ####[facility]ORYCLIA [id number] [place] [address] [place] Creatinine [Mass/Vol] 0.75 mg/dL Normal 0.58-0.96 [facility] Comment on above: Order Comment: Juan Jose pickens Type: BLOOD SPECIMENOrdering Facility: [facility] Address: [address] [place] [address] Performed By: #### 2 4321-2, ####[facility]ORATORYCLIA [id number] [place] [address] [place] eGFRcr SerPlBld CKD-EPI 2020 106 mL/min/1.73m??? Normal >=60 [facility] Comment on above: Order Comment: Juan Jose pickens Type: BLOOD SPECIMENOrdering Facility: [facility] Address: [address] [place] [address] Result Comment: Mary mated Glomerular Filtration Rate [...] actual GFR. Performed By: #### 2 4321-2, ####[facility]ATORYCLIA [id number] [place] [address] [place] Glucose [Mass/Vol] 82 mg/dL Normal 74-99 [facility] Comment on above: Order Comment: Juan Jose pickens Type: BLOOD SPECIMENOrdering Facility: [facility] Address: [address] [place] [address] Result Comment: The [place] [employer] Association (ADA) provides guidance for cutoff [...] Standards of Medical Care in Diabetes 2016, [place] [employer]. Diabetes Care. 2016.39(Suppl 1). Performed By: #### 2 432-2, ####[facility] LABORATORYCLIA [id number] [address] STATES OF [facility] Potassium [Moles/Vol] 3.6 mmol/L Low 3.7-5.1 [facility] Comment on above: Order Comment: Juan Jose pickens Type: BLOOD SPECIMENOrdering Facility: [facility] Address: [address] [place] [address] Performed By: #### 2 43205-04, ####[facility] LABORATORYCLIA [id number] [place] [id number] [place] [facility] Sodium [Moles/Vol] 142 mmol/L Normal 136-144 [facility] Comment on above: Order Comment: Juan Jose pickens Type: BLOOD SPECIMENOrdering Facility: [facility] Address: [address] [place] [address] Performed By: #### 2 4320-06, ####[facility]ATORYCLIA [id number] [place] [id number] [place] Urea nitrogen [Mass/Vol] 11 mg/dL Normal 7-21 [facility] Comment on above: Order Comment: Juan Jose pickens Type: BLOOD SPECIMENOrdering Facility: [facility] Address: [address] [place] [address] Performed By: #### 2 4320-06, ####[facility]ATORYCLIA [id number] [place] [id number] [place] CNDSon 01-29-2025 CNDS HNO ID: [id number] Author: TRICE SAUNDERS DO Service: Hospital Medicine Author Type: Physician Type: Discharge Summary Filed: 01/29/2025 11:48 Note Text: DISCHARGE SUMMARY PATIENT NAME: Doug Flanagan Code Status: Full Code Highest Readmission Risk Score: 13 The 30 day readmissions risk score is [...] summary. Admission Information Admission Information ADMIT DATE: 01/27/2025 DISCHARGE DATE: 01/29/25 MY DOCTORS AND MEDICAL TEAM: My Main Hospital Doctor: Trice Saunders DO Primary Care Provider: Dylan Velarde CNP My Medical Team Members: Treatment Team: Attending Provider: Trice Saunders DO Primary Service: DIMPLE GOETZ Consulting: Eddie Bales MD MY CONDITION AT DISCHARGE: Stable REASON I WAS IN THE HOSPITAL: seizure SUMMARY OF WHAT HAPPENED WHILE I WAS IN THE HOSPITAL: 34 yo F with PMH epilepsy, MG who presented with breakthrough seizure. She was monitored on cEEG and seen by epilepsy, started on depakote without evidence of further EEG seizures. Will need CBC, CMP, and aed levels with ammonia in 4 weeks. F/u with neurology. OTHER PROBLEMS/DIAGNOSIS: Principal Problem: Breakthrough seizure (HCC) Active Problems: Epilepsy (HCC) Generalized anxiety disorder Hypokalemia Migraine Resolved Problems: * No resolved hospital problems. * OPERATIONS PERFORMED WHILE IN THE HOSPITAL: None IMPORTANT TEST/PROCEDURES: No procedures performed TEST RESULTS NOT AVAILABLE AT THIS TIME: No pending results Discharge Disposition Discharge Disposition: Home With Self Care Activity When You Leave the Hospital Resume pre-hospital activity Diet Instructions Resume your pre-hospital diet For Pain When You Leave the Hospital Use acetaminophen (Tylenol) as recommended on the bottle Use ibuprofen (Motrin, Advil) as recommended on the bottle Follow Up Appointments Follow-up Appointment When: In 2 weeks Eddie Bales MD [phone] [place] [address] [address] [facility] [address] PCP Requested Referral Follow-up Appointment When: In 1 week Kendall Conroy MD [phone] [address] [facility] [address] PCP Requested Referral Treatment Team: Attending Provider: Trice Saunders DO Primary Service: DIMPLE GOETZ Consulting: Eddie Bales MD Consulting: (Internal), Internal Provider (Inactive) Consulting: Kendall Conroy MD FINAL DIAGNOSIS: epilepsy Active Hospital Problems Diagnosis POA Breakthrough seizure (HCC) Yes Migraine Unknown Hypokalemia Yes Epilepsy (HCC) Yes Generalized anxiety disorder Yes Resolved Hospital Problems No resolved problems to display. FOLLOW-UP APPOINTMENTS ALREADY SCHEDULED WITH A [facility] PROVIDER: No future appointments. ALLERGIES Allergen Reactions Barium Sulfate Other: See [...] Change, Other: See Comments Hallucinations, suicidal thoughts Magnesium Other: See Comments Interacts with myasthenia gravis Penicillins Rash Shellfish Containin* Other: See Comments Soy Protein Other: See Comments DISCHARGE MEDICATION: Medication List START taking these medications divalproex ER 500 mg 24 hr tablet Commonly known as: DEPAKOTE ER Take 1 tablet by mouth two times a day. NAYZILAM 5 mg/spray (0.1 mL) nasal spray Generic drug: midazolam Use 1 spray in the nose as needed for seizures lasting longer than 3 minutes for up to 180 days. May repeat dose in alternate nostril after 10 minutes based on response and tolerability. CHANGE how you take these medications lamoTRIgine ER 50 mg 24 hr tablet Commonly known as: LaMICtal XR Take 3 tablets by mouth two times a day. What changed: medication strength how much to take Another medication with the same name was removed. Continue taking this medication, and follow the directions you see here. zonisamide 100 mg capsule Commonly known as: ZONEGRAN Take 2 capsules by mouth every morning AND 3 capsules daily at bedtime. What changed: See the new in (more content not included)... Normal [facility] Magnesium SerPl-mCncon 01-29 Magnesium [Mass/Vol] 2.1 mg/dL Normal 1.7-2.3 [facility] Comment on above: Order Comment: Speci men Type: BLOOD SPECIMENOrdering Facility: [facility] Address: [address] [place] [address] [place] [address] Performed By: #### 2 2619-2, 89794-9 ####[facility]ORATORYCLIA [id number] [place] [address] [place] Basic metabolic 2000 panelon 01-28-2025 Anion gap [Moles/Vol] 9 mmol/L Normal 8-15 [facility] Comment on above: Order Comment: Speci men Type: BLOOD SPECIMENOrdering Facility: [facility] Address: [address] [place] [address] Performed By: #### 2 4321-2 ####[facility]ORYCLIA [id number] [place] [address] [place] Calcium [Mass/Vol] 8.7 mg/dL Normal 8.5-10.2 [facility] Comment on above: Order Comment: Speci men Type: BLOOD SPECIMENOrdering Facility: [facility] Address: [address] [place] [address] Performed By: #### 2 4321-2 ####[facility]ORYCLIA [id number] [place] [address] [place] Chloride [Moles/Vol] 112 mmol/L High 98-107 [facility] Comment on above: Order Comment: Speci men Type: BLOOD SPECIMENOrdering Facility: [facility] Address: [address] [place] [address] Performed By: #### 2 4321-2 ####[facility]ORYCLIA [id number] [place] [address] [place] CO2 [Moles/Vol] 20 mmol/L Low 22-30 [facility] Comment on above: Order Comment: Speci men Type: BLOOD SPECIMENOrdering Facility: [facility] Address: [address] [place] [address] Performed By: #### 2 4321-2 ####[facility]ATORYCLIA [id number] [place] [address] [place] Creatinine [Mass/Vol] 0.74 mg/dL Normal 0.58-0.96 [facility] Comment on above: Order Comment: Speci men Type: BLOOD SPECIMENOrdering Facility: [facility] Address: [address] [place] [address] Performed By: #### 2 4321-2 ####[facility] COUNTYIA [id number] [address] [place] eGFRcr SerPlBld CKD-EPI 2020 108 mL/min/1.73m??? Normal >=60 [facility] Comment on above: Order Comment: Marcelavishal pickens Type: BLOOD SPECIMENOrdering Facility: [facility] Address: [address] [place] [address] Result Comment: Mary mated Glomerular Filtration Rate [...] reflect actual GFR. Performed By: #### 2 4321-2 ####[facility] COUNTYIA [id number] [place] [address] [place] Glucose [Mass/Vol] 100 mg/dL High 74-99 [facility] Comment on above: Order Comment: Juan Jose pickens Type: BLOOD SPECIMENOrdering Facility: [facility] Address: [address] [place] [address] Result Comment: The [place] Diabetes Association (ADA) provides guidance for cutoff [...] Standards of Medical Care in Diabetes 2016, [place] [employer]. Diabetes Care. 2016.39(Suppl 1). Performed By: #### 2 4321-2 ####[facility] COUNTYIA [id number] [place] [address] [place] Potassium [Moles/Vol] 3.3 mmol/L Low 3.7-5.1 [facility] Comment on above: Order Comment: Speci men Type: BLOOD SPECIMENOrdering Facility: [facility] Address: [address] [place] [address] Performed By: #### 2 4321-2 ####[facility]ORATORYCLIA [id number] [address] [place] Sodium [Moles/Vol] 141 mmol/L Normal 136-144 [facility] Comment on above: Order Comment: Speci men Type: BLOOD SPECIMENOrdering Facility: [facility] Address: [address] [place] [address] Performed By: #### 2 4321-2 ####[facility]ORATORYCLIA [id number] [address] STATES [facility] Urea nitrogen [Mass/Vol] 8 mg/dL Normal 7-21 [facility] Comment on above: Order Comment: Speci men Type: BLOOD SPECIMENOrdering Facility: [facility] Address: [address] [place] [address] Performed By: #### 2 4321-2 ####[facility]ORATORYCLIA [id number] [address] STATES OF [facility] CBC panel Auto (Bld)on 01-28 Erythrocyte distribution width (RBC) [Ratio] 12.9 % Normal 11.5-15.0 [facility] Comment on above: Order Comment: Speci men Type: BLOOD SPECIMENOrdering Facility: [facility] Address: [address] [place] [address] Performed By: #### 5 8410-2 ####[facility]ORATORYCLIA [id number] [address] Hematocrit (Bld) [Volume fraction] 38.3 % Normal 36.0-46.0 [facility] Comment on above: Order Comment: Speci men Type: BLOOD SPECIMENOrdering Facility: [facility] Address: [address] [place] [address] Performed By: #### 5 8410-2 ####[facility]ORATORYCLIA [id number] [address] STATES OF [facility] Hemoglobin (Bld) [Mass/Vol] 12.6 g/dL Normal 11.5-15.5 [facility] Comment on above: Order Comment: Speci men Type: BLOOD SPECIMENOrdering Facility: [facility] Address: [address] [place] [address] Performed By: #### 5 8410-2 ####[facility]ORATORYCLIA [id number] [address] STATES OF [facility] MCH (RBC) [Entitic mass] 29.6 pg Normal 26.0-34.0 [facility] Comment on above: Order Comment: Speci men Type: BLOOD SPECIMENOrdering Facility: [facility] Address: [address] [place] [address] Performed By: #### 5 8410-2 ####[facility]ORATORYCLIA [id number] [address] MCHC (RBC) [Mass/Vol] 32.9 g/dL Normal 30.5-36.0 [facility] Comment on above: Order Comment: Speci men Type: BLOOD SPECIMENOrdering Facility: [facility] Address: [address] [place] [address] Performed By: #### 5 8410-2 ####[facility]ORATORYCLIA [id number] [address] MCV (RBC) [Entitic vol] 89.9 fL Normal 80.0-100.0 [facility] Comment on above: Order Comment: Speci men Type: BLOOD SPECIMENOrdering Facility: [facility] Address: [address] [place] [address] Performed By: #### 5 8410-2 ####[facility]ORATORYCLIA [id number] [address] Nucleated RBC (Bld) [#/Vol] 10*3/uL Normal <0.01 [facility] Comment on above: Order Comment: Speci men Type: BLOOD SPECIMENOrdering Facility: [facility] Address: [facility] [place] [address] Performed By: #### 5 8410-2 ####[facility]ORATORYCLIA [id number] [place] [address] [place] Platelet mean volume (Bld) [Entitic vol] 9.0 fL Normal 9.0-12.7 [facility] Comment on above: Order Comment: Speci men Type: BLOOD SPECIMENOrdering Facility: [facility] Address: [address] [place] [address] Performed By: #### 5 8410-2 ####[facility]ORATORYCLIA [id number] [place] [address] [place] Platelets (Bld) [#/Vol] 237 10*3/uL Normal 150-400 [facility] Comment on above: Order Comment: Speci men Type: BLOOD SPECIMENOrdering Facility: [facility] Address: [address] [place] [address] Performed By: #### 5 8410-2 ####[facility]ORATORYCLIA [id number] [place] [address] [place] RBC (Bld) [#/Vol] 4.26 10*6/uL Normal 3.90-5.20 [facility] Comment on above: Order Comment: Speci men Type: BLOOD SPECIMENOrdering Facility: [facility] Address: [address] [place] [address] Performed By: #### 5 8410-2 ####[facility]ORATORYCLIA [id number] [place] [address] [place] WBC (Bld) [#/Vol] 5.94 10*3/uL Normal 3.70-11.00 [facility] Comment on above: Order Comment: Speci men Type: BLOOD SPECIMENOrdering Facility: [facility] Address: [address] [place] [address] Performed By: #### 5 8410-2 ####[facility]ORATORYCLIA [id number] [address] [place] CONSULTon 01-28-2025 CONSULT HNO ID: [id number] Author: EDDIE BALES MD Service: Neurology Adult Epilepsy Author Type: Physician Type: Consults Filed: 01/28/2025 14:03 Note Text: Epilepsy consult note Reason for Consultation: Breakthrough seizure Chief Complaint: Breakthrough seizure HPI Doug Flanagan is a 34 year old female with history of generalized epilepsy, myasthenia gravis now admitted after a breakthrough seizure. Briefly her epilepsy was diagnosed at 11 after tonic-clonic seizure. Prior EEGs have showed generalized spike and wave complexes (2013), generalized polyspikes (October 2024) confirming a diagnosis of generalized epilepsy. She was previously on Keppra which caused significant psychiatric side effects, Dilantin also reportedly cause psychiatric side effects. She was on Depakote which reportedly worked well but was stopped when she became . She was on a combination of lamotrigine and zonisamide with 16 months of seizure freedom until March 2024. In October 2024 she had a breakthrough generalized tonic-clonic seizure following which she had prolonged periods of behavioral arrest, difficulty following commands and altered speech that lasted for several hours and then hadanother tonic-clonic seizure. She was intubated and was transferred to [facility] where she underwent continuous EEG monitoring which did not record any subsequent seizures. Reportedly a trial of cenobamate was given after October 2024 which made her feel dizzy, worsening gait instability and worsening her myasthenia symptoms following which cenobamate was stopped. Patient follows with Dr. Conroy, neurology in [place]. She was also diagnosed with myasthenia gravis in 2019 and is currently on Ravulizumab (Ultomiris infusions every 2 months). Denies missed medications, had a minor Infection few weeks ago. No apparent triggers for this breakthrough seizure. ROS All other systems negative except what is mentioned in HPI. 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 Lives with mother father and son. Tobacco Use: Types: Cigarettes Alcohol Use: No FHx: FAMILY HISTORY Problem Relation Age of Onset Headache Mother Multiple Sclerosis Sister Headache Maternal Grandfather Seizures Maternal Aunt Traumatic epilepsy Colon Cancer No Family History Allergies: ALLERGIES Allergen Reactions Barium Sulfate Other: See [...] Change, Other: See Comments Hallucinations, suicidal thoughts Magnesium Other: See Comments Interacts with myasthenia gravis Penicillins Rash Shellfish Containin* Other: See Comments Soy Protein Other: See Comments IV Dye Allergy: MRI contraindications: Meds: Current Facility-Administered Medications Medication Dose Route Frequency Provider Last Rate Last Admin escitalopram oxalate 10 mg tab(s) (LEXAPRO) 10 mg ORAL AT BEDTIME Trice Saunders DO lamoTRIgine ER (LaMICtal XR) tab(s) 150 mg 150 mg ORAL BID Eddie Bales MD divalproex ER 500 mg tab(s) (DEPAKOTE ER) 500 mg ORAL BID Eddie Bales MD acetaminophen 650 mg tab(s) (TYLENOL) 650 mg ORAL q 4 H PRN Hebert Vital MD 650 mg at 01/27/252235 aluminum-magnesium hydroxide-simethicone 200-200-20 mg/5 mL 30 mL 30 mL ORAL q 6 H PRN Hebert Vital MD ondansetron (PF) 4 mg injection (ZOFRAN) 4 mg INTRAVENOUS q 6 H PRN Hebert Vital MD zonisamide 200 mg cap(s) (ZONEGRAN) 200 mg ORAL DAILY Hebert Vital MD 200 mg at 01/28/25 0820 zonisamide 300 mg cap(s) (ZONEGRAN) 300 mg ORAL DAILY Hebert Vital MD 300 mg at 01/27/25 2326 midazolam 4 mg injection (VERSED) 4 mg INTRAVENOUS q 6 H PRN Hebert Vital MD NaCl 0.9% iv flush bag 20 mL INTRAVENOUS PRN Hebert Vital MD diazePAM spry 1 spray (VALTOCO) 1 spray NASAL q 12 H PRN Hebert Vital MD Previous Imaging AND Procedures reviewed: MRI Report - I (more content not included)... Normal [facility] NURSING PROGon 01-28-2025 NURSING PROG HNO ID: [id number] Author: MERCEDEZ MTZ RN Service: ? Author Type: Registered Nurse Type: Nursing Progress Note Filed: 01/28/2025 06:25 Note Text: This Rn was instructed by pharmacy to bring down diazepam-Valtoco nasal spray to be verified by pharmacy. Once at pharmacy they told me they weren't going to keep in down there in case of a seizure emergency where the patient wouldn't have access to/get it in time. Once I received the medication back from the pharmacist the medication was opened and unused. Per the NOM Karin, the medication is now locked in back pyxis room still open and unused. Normal [facility] PT panel Coag (PPP)on 2024 INR Coag (PPP) [Relative time] 1.1 {INR} Normal 0.9-1.3 [facility] Comment on above: Order Comment: Speci men Type: BLOOD SPECIMENOrdering Facility: [facility] Address: [address], [place] [address] Result Comment: Shantell min K Antagonist (VKA) Therapeutic Range: INR 2 to 3 (Target INR of 2.5) Note: For patients treated with VKA drugs, such as warfarin, the [employer] [employer] 2012 Guideline recommends [...] Chest 2012, 141:7S-47S Lucian RA, et al. [facility] 2017, 70: 252-289 Performed By: #### 3 4528-0, 20289-1 ####[facility]ORATORYCLIA [id number] [address] STATES OF [facility] PT Coag (PPP) [Time] 11.6 s Normal 9.7-13.0 [facility] Comment on above: Order Comment: Speci men Type: BLOOD SPECIMENOrdering Facility: [facility] Address: [address] [place] [address] Performed By: #### 3 4528-0, 90361-7 ####[facility] [id number] [address] aPTT PPPon 01-28-2025 aPTT Coag (PPP) [Time] 27.5 s Normal 23.0-32.4 [facility] Comment on above: Order Comment: Speci men Type: BLOOD SPECIMENOrdering Facility: [facility] Address: [address] [place] [address] Performed By: #### 3 4528-0, 06573-1 ####[facility] [id number] [address] STATES OF [facility] 12 Lead EKGon 01-27-2025 12 Lead EKG Normal [facility] Absolute lymphocyte countOrd ered By: Kaiden Rausch on 01-27-2025 Lymphocytes Auto (Unsp spec) [#/Vol] 0.96 10*3/uL 0.83-4.51 [facility] Absolute neutrophil countOrd ered By: Kaiden Rausch on 01-27-2025 Neutrophils (Bld) [#/Vol] 6.6 10*3/uL 2.0-7.7 [facility] Anion gap in Serum or Plasma Ordered By: Kaiden Rausch on 01-27-2025 Anion gap [Moles/Vol] 12 mmol/L 5-15 [facility] Automated lymphocyte count a s percentage of total leukocytesOrdered By: Kaiden Rausch on 01-27-2025 Lymphocytes/100 WBC Auto (Unsp spec) 11.9 % Low 19-41 [facility] BUN/creatinine ratioOrdered By: Kaiden Rausch on 01-27-2025 Urea nitrogen/Creatinine [Mass ratio] 14.0 mg/mg 10-20 [facility] Basophil percentageOrdered B y: Kaiden Rausch on 01-27-2025 Basophils/100 WBC (Bld) 0.4 % 0-1 [facility] Bilirubin Test strip Ql (U)O rdered By: Kaiden Rausch on 01-27-2025 Bilirubin Ql (U) Negative Negative [facility] Bilirubin, totalOrdered By: Kaiden Rausch on 01-27-2025 Bilirubin [Mass/Vol] 0.30 mg/dL 0.00-1.30 [facility] Brain/Head without Contrasto n 01-27-2025 Brain/Head without Contrast Normal [facility] CBC W/Diff, Automatedon 01-02 Absolute Lymph 0.96 X10 3/uL Normal 0.83-4.51 [facility] Comment on above: Performed By: #### L 700.6800, L500.4050, L100.0100 ####[facility] [address] [place], [address] Absolute Neut 6.6 X10 3/uL Normal 2.0-7.7 [facility] Comment on above: Performed By: #### L 700.6800, L500.4050, L100.0100 ####[facility] [address] [place], [address] Basophils/100 WBC (Bld) 0.4 % Normal 0-1 [facility] Comment on above: Performed By: #### L 700.6800, L500.4050, L100.0100 ####[facility] [address] [place], [address] Eosinophils/100 WBC (Bld) 0.6 % Normal 0-5 [facility] Comment on above: Performed By: #### L 700.6800, L500.4050, L100.0100 ####[facility] [address] [place], [address] Erythrocyte distribution width (RBC) [Ratio] 12.9 % Normal 11.6-14.6 [facility] Comment on above: Performed By: #### L 700.6800, L500.4050, L100.0100 ####[facility] [address] [place], [address] Hematocrit (Bld) [Volume fraction] 40.7 % Normal 37-47 [facility] Comment on above: Performed By: #### L 700.6800, L500.4050, L100.0100 ####[facility] [address] [place], [address] Hemoglobin (Bld) [Mass/Vol] 13.6 g/dL Normal 12.0-15.0 [facility] Comment on above: Performed By: #### L 700.6800, L500.4050, L100.0100 ####[facility] [address] [place], [address] IG% 0.400 Normal 0.0-0.9 [facility] Comment on above: Result Comment: IG% - Immature Granulocytes (promyelocytes, myelocytes andmetamyelocytes) > 1% indicates that a LEFT SHIFT is Present. Performed By: #### L 700.6800, L500.4050, L100.0100 ####[facility] [address] [place], [address] Lymphocytes/100 WBC (Bld) 11.9 % Low 19-41 [facility] Comment on above: Performed By: #### L 700.6800, L500.4050, L100.0100 ####[facility] [address] [place], [address] MCH (RBC) [Entitic mass] 29.6 pg Normal 27.0-32.0 [facility] Comment on above: Performed By: #### L 700.6800, L500.4050, L100.0100 ####[facility] [address] [place], [address] MCHC (RBC) [Mass/Vol] 33.4 g/dL Normal 32-36 [facility] Comment on above: Performed By: #### L 700.6800, L500.4050, L100.0100 ####[facility] [address] [place], [address] MCV (RBC) [Entitic vol] 88.7 fL Normal 81-99 [facility] Comment on above: Performed By: #### L 700.6800, L500.4050, L100.0100 ####[facility] [address] [place], [address] Monocytes/100 WBC (Bld) 4.6 % Normal 0-10 [facility] Comment on above: Performed By: #### L 700.6800, L500.4050, L100.0100 ####[facility] [address] [place], [address] Neutrophils/100 WBC (Bld) 82.1 % High 47-70 [facility] Comment on above: Performed By: #### L 700.6800, L500.4050, L100.0100 ####[facility] [address] [place], [address] Nucleated RBC (Bld) [#/Vol] 0 10*3/uL Normal 0-5 [facility] Comment on above: Performed By: #### L 700.6800, L500.4050, L100.0100 ####[facility] [address] [place], [address] Platelet mean volume (Bld) [Entitic vol] 9.1 fL Normal 6.2-12.0 [facility] Comment on above: Performed By: #### L 700.6800, L500.4050, L100.0100 ####[facility] [address] [place], [address] Platelets (Bld) [#/Vol] 271 10*3/uL Normal 150-450 [facility] Comment on above: Performed By: #### L 700.6800, L500.4050, L100.0100 ####[facility] [address] [place], [address] RBC (Bld) [#/Vol] 4.59 10*6/uL Normal 4.2-5.4 [facility] Comment on above: Performed By: #### L 700.6800, L500.4050, L100.0100 ####[facility] [address] [place], [address] RDW SD 41.8 fl Normal 35.1-43.9 [facility] Comment on above: Performed By: #### L 700.6800, L500.4050, L100.0100 ####[facility] [address] [place], [address] WBC (Bld) [#/Vol] 8.1 10*3/uL Normal 4.4-11.0 [facility] Comment on above: Performed By: #### L 700.6800, L500.4050, L100.0100 ####[facility] [address] [place], [address] Carbon dioxide, total [Moles /volume] in Central venous bloodOrdered By: Kaiden Rausch on 01-27-2025 CO2 [Moles/Vol] 19.2 mmol/L Low 21.0-32.0 [facility] Chest PA and Lateralon 01-27 Chest PA and Lateral Normal [facility] Chloride assayOrdered By: Damir Rausch on 01-27-2025 Chloride [Moles/Vol] 110 mmol/L High 98-108 [facility] Comprehensive Metabolic Prof ilon 01-27-2025 Albumin [Mass/Vol] 4.3 g/dL Normal 3.5-5.0 [facility] Comment on above: Performed By: #### L 700.6800, L500.4050, L100.0100 ####[facility] [address] [place], [address] Albumin/Globulin [Mass ratio] 1.6 {ratio} Normal 0.9-2.4 [facility] Comment on above: Performed By: #### L 700.6800, L500.4050, L100.0100 ####[facility] [address] [place], [address] ALK PHOS 85 U/L Normal 35-104 [facility] Comment on above: Performed By: #### L 700.6800, L500.4050, L100.0100 ####[facility] [address] [place], [address] ALT [Catalytic activity/Vol] 10 U/L Normal <=34 [facility] Comment on above: Performed By: #### L 700.6800, L500.4050, L100.0100 ####[facility] [address] [place], [address] AST [Catalytic activity/Vol] 13 U/L Normal <=31 [facility] Comment on above: Performed By: #### L 700.6800, L500.4050, L100.0100 ####[facility] [address] [place], [address] Bilirubin [Mass/Vol] 0.30 mg/dL Normal 0.00-1.30 [facility] Comment on above: Performed By: #### L 700.6800, L500.4050, L100.0100 ####[facility] [address] [place], [address] BUN/CRE 14.0 RATIO Normal 10-20 [facility] Comment on above: Performed By: #### L 700.6800, L500.4050, L100.0100 ####[facility] [address] [place], [address] Calcium [Mass/Vol] 9.3 mg/dL Normal 7.6-11.0 [facility] Comment on above: Performed By: #### L 700.6800, L500.4050, L100.0100 ####[facility] [address] [place], [address] Chloride [Moles/Vol] 110 mmol/L High 98-108 [facility] Comment on above: Performed By: #### L 700.6800, L500.4050, L100.0100 ####[facility] [address] [place], [address] CO2 [Moles/Vol] 19.2 mmol/L Low 21.0-32.0 [facility] Comment on above: Performed By: #### L 700.6800, L500.4050, L100.0100 ####[facility] [address] [place], [address] Creatinine [Mass/Vol] 0.69 mg/dL Low 0.70-1.20 [facility] Comment on above: Performed By: #### L 700.6800, L500.4050, L100.0100 ####[facility] [address] [place], [address] GAP 12 Normal 5-15 [facility] Comment on above: Performed By: #### L 700.6800, L500.4050, L100.0100 ####[facility] [address] [place], [address] GFR/1.73 sq M.predicted among non-blacks MDRD (S/P/Bld) [Vol rate/Area] 115 mL/min/{1.73_m2} Normal >60 [facility] Comment on above: Result Comment: mL/m in/1.73m2 CKD-EPI Creatinine Equation (2020) Performed By: #### L 700.6800, L500.4050, L100.0100 ####[facility] [address] [place], [address] Globulin (S) [Mass/Vol] 2.6 g/dL Normal 2.2-4.2 [facility] Comment on above: Performed By: #### L 700.6800, L500.4050, L100.0100 ####[facility] [address] [place], [address] Glucose [Mass/Vol] 96 mg/dL Normal 70-99 [facility] Comment on above: Performed By: #### L 700.6800, L500.4050, L100.0100 ####[facility] [address] [place], [address] Potassium [Moles/Vol] 3.4 mmol/L Normal 3.3-5.1 [facility] Comment on above: Performed By: #### L 700.6800, L500.4050, L100.0100 ####[facility] [address] [place], [address] Sodium [Moles/Vol] 141 mmol/L Normal 133-145 [facility] Comment on above: Performed By: #### L 700.6800, L500.4050, L100.0100 ####[facility] [address] [place], [address] T PROT 6.9 g/dL Normal 5.9-8.4 [facility] Comment on above: Performed By: #### L 700.6800, L500.4050, L100.0100 ####[facility] [address] [place], [address] Urea nitrogen [Mass/Vol] 10 mg/dL Normal 4-19 [facility] Comment on above: Performed By: #### L 700.6800, L500.4050, L100.0100 ####[facility] [address] [place], [address] Electrocardiogram reportOrde red By: Joanie Tavarez on 01-27-2025 EKG study [facility] [address] [place] [address] 12 Lead EKG 01/27/25 1447 MR#: [id number] Acct: [id number] Name: DOUG FLANAGAN Rep #:[id number] : 1990 34 From: Joanie Tavarez MD Attending Dr: Status: DEP E R Ordering Dr: Kaiden Rausch DO Date: Location: ED Sex: F C Admitted: Test Reason : CP Blood Pressure : */* mmHG Vent. Rate : 83 BPM Atrial Rate : 83 BPM P-R Int : 176 ms QRS Dur : 84 ms QT Int : 362 ms P-R-T Axes : 45 -15 24 degrees QTcB Int : 425 ms Normal sinus rhythm Normal ECG Confirmed by JOANIE TAVAREZ ([id number]), photography editor IRENA RAE ([id number]) on 01/29/2025 8:43:03 AM Referred By: Confirmed By: JOANIE TAVAREZ 01/29/25 0843 Date _ Joanie Tavarez MD CC: Dr. Leander Patel MD; Dr. Kaiden Rausch, DO ~ Signed [facility] Other Emergency Department Summary on 01-27-2025 Emergency Department Summary Normal [facility] Eosinophil percentageOrdered By: Kaiden Rausch on 01-27-2025 Eosinophils/100 WBC (Bld) 0.6 % 0-5 [facility] Erythrocyte distribution wid th ratioOrdered By: Kaiden Rausch on 01-27-2025 Erythrocyte distribution width (RBC) [Ratio] 12.9 % 11.6-14.6 [facility] Erythrocyte distribution wid th standard deviationOrdered By: Kaiden Rausch on 01-27-2025 Erythrocyte distribution width (RBC) [Ratio] 41.8 fl 35.1-43.9 [facility] Glomerular filtration rate ( GFR) estimation/1.73 sq m using serum, plasma, or whole bOrdered By: Kaiden Rausch on 01-27-2025 GFR/1.73 sq M.predicted among non-blacks MDRD (S/P/Bld) [Vol rate/Area] 115 mL/min/{1.73_m2} >60 [facility] Comment on above: mL/min/1.73m2 CKD-EP I Creatinine Equation (2020) HISTORY PHYSICALon HISTORY PHYSICAL HNO ID: [id number] Author: HEBERT VITAL MD Service: Hospital Medicine Author Type: Physician Type: H&P Filed: 01/27/2025 23:26 Note Text: DEPARTMENT OF HOSPITAL MEDICINE HISTORY AND PHYSICAL EXAM SERVICE DATE: 01/27/2025 SERVICE TIME: 9:18 PM Primary Care Physician: Dylan Velarde CNP NIGHT AND WEEKEND COVERAGE: From 7am - 7pm, please call Sound After 7pm, please call cross cover pager #[phone] Subjective CHIEF COMPLAINT: seizure HPI: This is a 34 year old female w/ hx epilepsy who presents fr [facility] where she was brought by EMS for breakthrough seizures. She was on the phone with her mother when it happened, nobody with her to witness and report, denies tongue biting. Was deemed post ictal in the ED and currently still feeling a bit foggy but improved. Denies headache, chest pain, sob or fevers/chills. BP 100s/70s, HR 70s, RR 16, afebrile, 97% spo2 on RA. PAST MEDICAL HISTORY Diagnosis Date Abnormal Pap [...] 9 years of age Fell off the [employer] bars; lost consciousness 3-5 minutes PAST SURGICAL HISTORY Procedure Laterality Date APPENDECTOMY COLONOSCOPY 04/08/2022 No repeat due to age CONIZATION OF CERVIX; COLD KNIFE/LASER 10/17/2021 Paragard removal, Mirena IUD insertion HIP SURGERY HX Right INSJ TUNNELED CTR VAD W/SUBQ PORT AGE 3 YR/> 10/16/2020 LEEP PROCEDURE (INSURANCE ADVISER DEPT)_*FL THYMECTOMY, PARTIAL/TOTAL total FAMILY HISTORY Problem Relation Age of Onset Headache Mother Multiple Sclerosis Sister Headache Maternal Grandfather Seizures Maternal Aunt Traumatic epilepsy Colon Cancer No Family History SOCIAL HISTORY[1] MEDICATIONS: Meds Reviewed Prescriptions Prior to Admission[2] ALLERGIES Allergen Reactions Barium Sulfate Other: See [...] See Comments Soy Protein Other: See Comments REVIEW OF SYSTEM: GENERAL: No weight loss, malaise or fevers HEENT: Negative for frequent or significant headaches, No changes in hearing or vision, no nose bleeds or other nasal problems NECK: Negative for lumps, goiter, pain and significant neck swelling RESPIRATORY: Negative for cough, hemoptysis, wheezing, or shortness of breath CARDIOVASCULAR: Negative for chest pain, leg swelling, or palpitations GI: No nausea, vomiting, or diarrhea : No history of dysuria, frequency or incontinence MUSCULOSKELETAL: Negative for joint pain or swelling, back pain or muscle pain SKIN: Negative for lesions, rash, and itching PSYCH: Negative for sleep disturbance, depression or anxiety NEURO: No headaches, new speech impediment or new one sided weakness or numbness Objective PHYSICAL EXAM: BP 108/70 Pulse 78 Temp (Src) 97.9 (Oral) Resp 16 SpO2 97% LMP 03/18/2022 O2 Therapy: Room Air Physical Exam Performed: GENERAL: Alert, oriented x 3, no distress, cooperative SKIN: Skin color, texture, turgor normal. No rashes or lesions. HEAD/SINUSES: No significant findings EYES/EARS/NOSE: PERRLA, EOMI. External ears normal, canals clear. Nares normal, septum midline. OROPHARYNX: Lips, mucosa, and tongue normal. Teeth and gums normal. Oropharynx normal. NECK: No jugulovenous distention, No carotid bruits, Carotid pulse normal contour, Supple LUNGS: Lungs clear to auscultation, Good diaphragmatic excursion CARDIAC: Normal S1 and S2; no rubs, murmurs, or gallops ABDOMEN: Abdomen soft, non-tender, BS normal, No masses or organomegaly EXTREMITIES: Extremities normal, no deformities, edema, clubbing or skin discoloration. Good capillary refill., No ulcers NEURO: Gait normal. Reflexes normal and symmetric. Sensation grossly intact, Cranial nerves II-XII intact The remainder of the physical exam is noncontributory. Lines, Drains, and Airways None Reviewed lines and needs to be continued: REASONS: Intravenous fluids, electrolyte replacem (more content not included)... Normal [facility] Hematocrit Auto (Bld) [Volum e fraction]Ordered By: Kaiden Rausch on 01-27-2025 Hematocrit (Bld) [Volume fraction] 40.7 % 37-47 [facility] Hemoglobin measurementOrdere d By: Kaiden Rausch on 01-27-2025 Hemoglobin (Bld) [Mass/Vol] 13.6 g/dL 12.0-15.0 [facility] Immature granulocytes/100 WB C Auto (Bld)Ordered By: Kaiden Rausch on 01-27-2025 Immature granulocytes/100 WBC (Bld) 0.400 % 0.0-0.9 [facility] Comment on above: IG% - Immature Granu locytes (promyelocytes, myelocytes and metamyelocytes) > 1% indicates that a LEFT SHIFT is Present. Ketones Test strip Ql (U)Ord ered By: Kaiden Rausch on 01-27-2025 Ketones Ql (U) Negative Negative [facility] Laboratory - Chemistry and C hemistry - challengeOrdered By: Kaiden Rausch on 01-27-2025 AST [Catalytic activity/Vol] 13 U/L <32 [facility] Lactate (Bld) [Moles/Vol]on 01-27-2025 Lactate [Moles/Vol] 0.5 mmol/L Normal 0.5-2.2 [facility] Comment on above: Order Comment: Speci men Type: BLOOD SPECIMENOrdering Facility: [facility] Address: [address] [place], [place] [id number] Performed By: #### 3 2693-4 ####[facility]ATORYCLIA [id number] [place] [address] [place] MCV (mean corpuscular volume ) determinationOrdered By: Kaiden Rausch on 01-27-2025 MCV (RBC) [Entitic vol] 88.7 fL 81-99 [facility] Mean corpuscular hemoglobin (MCH) determinationOrdered By: Kaiden Rausch on 01-27-2025 MCH (RBC) [Entitic mass] 29.6 pg 27.0-32.0 [facility] Mean corpuscular hemoglobin concentration (MCHC) determinationOrdered By: Kaiden Rausch on 01-27-2025 MCHC (RBC) [Mass/Vol] 33.4 g/dL 32-36 [facility] Mean platelet volume determi nationOrdered By: Kaiden Rausch on 01-27-2025 Platelet mean volume (Bld) [Entitic vol] 9.1 fL 6.2-12.0 [facility] Microscopic analysis of urin e for red blood cells (RBC)Ordered By: Kaiden Rausch on 01-27-2025 Microscopic analysis of urine for red blood cells (RBC) 5-10 SEEN /hpf 0-5 [facility] Monocyte percentageOrdered B y: Kaiden Rausch on 01-27-2025 Monocytes/100 WBC (Bld) 4.6 % 0-10 [facility] Mucus LM Ql (Urine sed)Order ed By: Kaiden Rausch on 01-27-2025 Mucus Ql (Urine sed) 0 SEEN /hpf [facility] Neutrophil percentageOrdered By: Kaiden Rausch on 01-27-2025 Neutrophils/100 WBC (Bld) 82.1 % High 47-70 [facility] Nitrite Test strip Ql (U)Ord ered By: Kaiden Rausch on 01-27-2025 Nitrite Ql (U) Negative Negative [facility] Nucleated red blood cell per centageOrdered By: Kaiden Rausch on 01-27-2025 Nucleated RBC/100 WBC (Bld) [Ratio] 0 % 0-5 [facility] Platelet countOrdered By: Damir Rausch on 01-27-2025 Platelets (Bld) [#/Vol] 271 10*3/uL 150-450 [facility] Potassium measurement (mass/ volume)Ordered By: Kaiden Rausch on 01-27-2025 Potassium (Unsp spec) [Mass/Vol] 3.4 mmol/L 3.3-5.1 [facility] ,Serum,hCG Quali.on 01-27-2025 HCG, SERUM QUAL Negative Normal [facility] Comment on above: Performed By: #### L 700.6800, L500.4050, L100.0100 ####[facility] [address] [place], [place], [id number] Protein Test strip Ql (U)Ord ered By: Kaiden Rausch on 01-27-2025 Protein Ql (U) 15 mg/dl High Negative [facility] RBC Auto (Bld) [#/Vol]Ordere d By: Kaiden Rausch on 01-27-2025 RBC (Bld) [#/Vol] 4.59 10*6/uL 4.2-5.4 [facility] Serum beta-hCG test, qualita tiveOrdered By: Kaiden Rausch on 01-27-2025 Beta HCG ( test) Ql Negative [facility] Serum creatinine measurement (mass/volume)Ordered By: Kaiden Rausch on 01-27-2025 Creatinine [Mass/Vol] 0.69 mg/dL Low 0.70-1.20 [facility] Serum globulin measurementOr dered By: Kaiden Rausch on 01-27-2025 Globulin (S) [Mass/Vol] 2.6 g/dL 2.2-4.2 [facility] Serum glucose measurement (m ass/volume)Ordered By: Kaiden Rausch on 01-27-2025 Glucose [Mass/Vol] 96 mg/dL 70-99 [facility] Serum or plasma alanine diallo otransferase (ALT) measurementOrdered By: Kaiden Rausch on 01-27-2025 ALT [Catalytic activity/Vol] 10 U/L <35 [facility] Serum or plasma albumin traci urement (mass/volume)Ordered By: Kaiden Rausch on 01-27-2025 Albumin [Mass/Vol] 4.3 g/dL 3.5-5.0 [facility] Serum or plasma albumin/glob ulin mass ratioOrdered By: Kaiden Rausch on 01-27-2025 Albumin/Globulin [Mass ratio] 1.6 {ratio} 0.9-2.4 [facility] Serum or plasma alkaline abby sphatase measurementOrdered By: Kaiden Rausch on 01-27-2025 ALP [Catalytic activity/Vol] 85 U/L 35-104 [facility] Serum or plasma calcium traci urement (mass/volume)Ordered By: Kaiden Rausch on 01-27-2025 Calcium [Mass/Vol] 9.3 mg/dL 7.6-11.0 [facility] Serum or plasma urea nitroge n measurement (mass/volume)Ordered By: Kaiden Rausch on 01-27-2025 Urea nitrogen [Mass/Vol] 10 mg/dL 4-19 [facility] Sodium levelOrdered By: Vanessa Rausch on 01-27-2025 Sodium [Moles/Vol] 141 mmol/L 133-145 [facility] Squamous epithelial cells de tection in urine sediment by light microscopyOrdered By: Kaiden Rausch on 01-27-2025 Epithelial cells.squamous LM Ql (Urine sed) 5-10 SEEN /hpf 5-10 [facility] Total proteinOrdered By: Collins Rausch on 01-27-2025 Protein [Mass/Vol] 6.9 g/dL 5.9-8.4 [facility] Urinalysis, Completeon 01-27 BACTERIA 1+ /hpf Normal None Seen [facility] Comment on above: Order Comment: CLEAN CATCH Performed By: #### L 400.0001 ####[facility] [address] [place], [address] EPI,SQUAMOUS 5-10 SEEN Normal 5-10 [facility] Comment on above: Order Comment: CLEAN CATCH Performed By: #### L 400.0001 ####[facility] [address] [place], [address] RBC 5-10 SEEN Normal 0-5 [facility] Comment on above: Order Comment: CLEAN CATCH Performed By: #### L 400.0001 ####[facility] [address] [place], [address] WBC 0-5 SEEN Normal 0-5 [facility] Comment on above: Order Comment: CLEAN CATCH Performed By: #### L 400.0001 ####[facility] [address] [place], [address] Mucus Ql (Urine sed) 0 SEEN Normal [facility] Comment on above: Order Comment: CLEAN CATCH Performed By: #### L 400.0001 ####[facility] [address] [place], [address] Urine clarityOrdered By: Collins Rausch on 01-27-2025 Clarity (U) Sl. Cloudy Clear [facility] Urine color determinationOrd ered By: Kaiden Rausch on 01-27-2025 Color (U) Yellow Yellow [facility] Urine glucose detectionOrder ed By: Kaiden Rausch on 01-27-2025 Glucose Ql (U) Normal mg/dl Normal [facility] Urine leukocyte esterase det ection by dipstickOrdered By: Kaiden Rausch on 01-27-2025 Leukocyte esterase Test strip Ql (U) Negative Negative [facility] Urine pHOrdered By: Kaiden abraham on 01-27-2025 pH (U) 6.0 [pH] 5.0 - 8.0 [facility] Urine sediment bacteria coun t by microscopy (number/high power field)Ordered By: Kaiden Rausch on 01-27-2025 Bacteria LM.HPF (Urine sed) [#/Area] 1 /[HPF] None Seen [facility] Urine specific gravity measu rementOrdered By: Kaiden Rausch on 01-27-2025 Specific gravity (U) [Rel density] 1.010 1.002-1.03 0 [facility] Urine urobilinogen measureme ntOrdered By: Kaiden Rausch on 01-27-2025 Urobilinogen Ql (U) Normal mg/dl Normal [facility] White blood cell (WBC) count Ordered By: Kaiden Rausch on 01-27-2025 WBC (Bld) [#/Vol] 8.1 10*3/uL 4.4-11.0 [facility] White blood cell countOrdere d By: Kaiden Rausch on 01-27-2025 White blood cell count 0-5 SEEN /hpf 0-5 [facility] Zonisamide SerPl-mCncon 01-02 Zonisamide [Mass/Vol] 21.2 ug/mL Normal 10.0-40.0 [facility] Comment on above: Order Comment: Speci men Type: BLOOD SPECIMENOrdering Facility: [facility] Address: [address] [place] [address] Result Comment: This test was developed, and its performance characteristics determined by the [facility] Department of Pathology and Laboratory Medicine. It has not been cleared or approved by the FDA. The [facility] Department of Pathology and Laboratory Medicine is regulated under CLIA as qualified to perform high-complexity testing. This test is used for clinical purposes. It should not be regarded as investigational or for research. Performed By: #### 2 9620-2, 6948-4 ####[facility] LABCLIA [id number] [place] [address] [place] lamoTRIgine SerPl-mCncon lamoTRIgine [Mass/Vol] 18.6 ug/mL High 1.0-13.0 [facility] Comment on above: Order Comment: Juan Jose pickens Type: BLOOD SPECIMENOrdering Facility: [facility] Address: [address] [place] [address] Result Comment: This test was developed, and its performance characteristics determined by the [facility] Department of Pathology and Laboratory Medicine. It has not been cleared or approved by the FDA. The [facility] Department of Pathology and Laboratory Medicine is regulated under CLIA as qualified to perform high-complexity testing. This test is used for clinical purposes. It should not be regarded as investigational or for research. Performed By: #### 2 9620-2, 6948-4 ####[facility] LABCLIA [id number] [facility] [place] [address] [place] Lamotrigine (Lamictal) Level on 01-22-2025 LAMOTRIGINE 12.0 ug/mL Normal 2.0-20.0 [facility] Comment on above: Result Comment: Dete ction Limit = 1.0Performed at: [facility] [address] [id number] Director: Dakota Beal MD, Phone: [phone] Performed By: #### L 3410.9992, L503.5510, L3300.4400 ####[facility] [address] [place], [address] L3410.9992on 01-20-2025 [facility] Misc. COMMENT Normal . [facility] Comment on above: Order Comment: 73122 5zonisamide level serum rt Result Comment: Test Ordered: [id number] Zonisamide(Zonegran), SerumZonisamide 22.8 ug/mL Reference Range: 10.0-40.0 Detection Limit = 2.0Performed at: [facility] [address] [id number] Director: Dakota Beal MD, Phone: [phone] at: [address] [id number] Director: Nicolas Fleming PhD, Phone: [phone] Performed By: #### L 3410.9992, L503.5510, L3300.4400 ####[facility] [address] [place], [place], [address] Ammoniaon 01-18-2025 Ammonia (P) [Moles/Vol] 37.3 umol/L Normal [facility] Comment on above: Performed By: #### L 3410.9992, L503.5510, L3300.4400 ####[facility] [address] [place], [place], [id number] Serum or plasma lamotrigine measurement (mass/volume)Ordered By: Kendall Conroy on 01-18-2025 lamoTRIgine [Mass/Vol] 12.0 ug/mL 2.0-20.0 [facility] Comment on above: Detection Limit = 1. 0Performed at: [facility] [id number] Director: Dakota Beal MD, Phone: [phone] Venous blood ammonia measure mentOrdered By: Kendall Conroy on 01-18-2025 Ammonia (P) [Moles/Vol] 37.3 umol/L [facility] Influenza virus A and B and SARS-CoV-2 (COVID-19) and Respiratory syncytial virus RNAOrdered By: Leander Patel on 01-11-2025 SARS-CoV-2 (COVID-19) RNA CHRISTIANO+probe Ql (Unsp spec) [facility] Internal Medicine Office Vis iton 01-11-2025 Internal Medicine Office Visit Normal [facility] M100.678on 01-11-2025 M100.678 Pending SARS-CoV-2 (COVID 19) Negative INFLUENZA A Negative INFLUENZA B Negative RSV PCR Negative Normal [facility] Comment on above: Performed By: #### M 100.678 ####[facility] [address] [place], [place], [id number] Rapid group A Streptococcus antigen assay at point of careOrdered By: Leander Patel on 01-11-2025 S. pyogenes Ag IA.rapid Ql (Throat) Negative [facility] Neurology Visit Reporton Neurology Visit Report Normal [facility] Absolute lymphocyte countOrd ered By: Kendalltimbo Conroy on 11-28-2024 Lymphocytes Auto (Unsp spec) [#/Vol] 1.95 10*3/uL 0.83-4.51 [facility] Absolute neutrophil countOrd ered By: Kendall [facility] on 11-28-2024 Neutrophils (Bld) [#/Vol] 5.0 10*3/uL 2.0-7.7 [facility] Anion gap in Serum or Plasma Ordered By: Kendalltimbo Conroy on 11-28-2024 Anion gap [Moles/Vol] 13 mmol/L 5-15 [facility] Automated lymphocyte count a s percentage of total leukocytesOrdered By: [facility] on 11-28-2024 Lymphocytes/100 WBC Auto (Unsp spec) 25.2 % 19- [facility] BUN/creatinine ratioOrdered By: [facility] on 11-28-2024 Urea nitrogen/Creatinine [Mass ratio] 15.1 mg/mg 10-20 [facility] Basophil percentageOrdered B y: Kendall Shashank on 11-28-2024 Basophils/100 WBC (Bld) 0.5 % 0-1 [facility] Bilirubin, totalOrdered By: [facility] on 11-28-2024 Bilirubin [Mass/Vol] 0.37 mg/dL 0.00-1.30 [facility] CBC W/Diff, Automatedon 11-01 Absolute Lymph 1.95 X10 3/uL Normal 0.83-4.51 [facility] Comment on above: Performed By: #### L 500.4050, L100.0100 ####[facility] [address] [place], [place], [id number] Absolute Neut 5.0 X10 3/uL Normal 2.0-7.7 [facility] Comment on above: Performed By: #### L 500.4050, L100.0100 ####[facility] [address] [place], [address] Basophils/100 WBC (Bld) 0.5 % Normal 0-1 [facility] Comment on above: Performed By: #### L 500.4050, L100.0100 ####[facility] [address] [place], [address] Eosinophils/100 WBC (Bld) 2.2 % Normal 0-5 [facility] Comment on above: Performed By: #### L 500.4050, L100.0100 ####[facility] [address] [place], [address] Erythrocyte distribution width (RBC) [Ratio] 12.7 % Normal 11.6-14.6 [facility] Comment on above: Performed By: #### L 500.4050, L100.0100 ####[facility] [address] [place], [address] Hematocrit (Bld) [Volume fraction] 43.0 % Normal 37-47 [facility] Comment on above: Performed By: #### L 500.4050, L100.0100 ####[facility] [address] [place], [address] Hemoglobin (Bld) [Mass/Vol] 14.5 g/dL Normal 12.0-15.0 [facility] Comment on above: Performed By: #### L 500.4050, L100.0100 ####[facility] [address] [place], [address] IG% 0.400 Normal 0.0-0.9 [facility] Comment on above: Result Comment: IG% - Immature Granulocytes (promyelocytes, myelocytes andmetamyelocytes) > 1% indicates that a LEFT SHIFT is Present. Performed By: #### L 500.4050, L100.0100 ####[facility] [address] [place], [address] Lymphocytes/100 WBC (Bld) 25.2 % Normal 19-41 [facility] Comment on above: Performed By: #### L 500.4050, L100.0100 ####[facility] [address] [place], [address] MCH (RBC) [Entitic mass] 29.8 pg Normal 27.0-32.0 [facility] Comment on above: Performed By: #### L 500.4050, L100.0100 ####[facility] [address] [place], [address] MCHC (RBC) [Mass/Vol] 33.7 g/dL Normal 32-36 [facility] Comment on above: Performed By: #### L 500.4050, L100.0100 ####[facility] [address] [place], [address] MCV (RBC) [Entitic vol] 88.3 fL Normal 81-99 [facility] Comment on above: Performed By: #### L 500.4050, L100.0100 ####[facility] [address] [place], [address] Monocytes/100 WBC (Bld) 7.2 % Normal 0-10 [facility] Comment on above: Performed By: #### L 500.4050, L100.0100 ####[facility] [address] [place], [address] Neutrophils/100 WBC (Bld) 64.5 % Normal 47-70 [facility] Comment on above: Performed By: #### L 500.4050, L100.0100 ####[facility] [address] [place], [address] Nucleated RBC (Bld) [#/Vol] 0 10*3/uL Normal 0-5 [facility] Comment on above: Performed By: #### L 500.4050, L100.0100 ####[facility] [address] [place], [address] Platelet mean volume (Bld) [Entitic vol] 9.8 fL Normal 6.2-12.0 [facility] Comment on above: Performed By: #### L 500.4050, L100.0100 ####[facility] [address] [place], [address] Platelets (Bld) [#/Vol] 283 10*3/uL Normal 150-450 [facility] Comment on above: Performed By: #### L 500.4050, L100.0100 ####[facility] [address] [place], [address] RBC (Bld) [#/Vol] 4.87 10*6/uL Normal 4.2-5.4 [facility] Comment on above: Performed By: #### L 500.4050, L100.0100 ####[facility] [address] [place], [address] RDW SD 40.7 fl Normal 35.1-43.9 [facility] Comment on above: Performed By: #### L 500.4050, L100.0100 ####[facility] [address] [place], [address] WBC (Bld) [#/Vol] 7.7 10*3/uL Normal 4.4-11.0 [facility] Comment on above: Performed By: #### L 500.4050, L100.0100 ####[facility] [address] [place], [address] Carbon dioxide, total [Moles /volume] in Central venous bloodOrdered By: Kendall Conroy on 11-28-2024 CO2 [Moles/Vol] 18.1 mmol/L Low 21.0-32.0 [facility] Chloride assayOrdered By: Ra torey Conroy on 11-28-2024 Chloride [Moles/Vol] 107 mmol/L 98-108 [facility] Comprehensive Metabolic Prof ilon 11-28-2024 Albumin [Mass/Vol] 4.7 g/dL Normal 3.5-5.0 [facility] Comment on above: Performed By: #### L 500.4050, L100.0100 ####[facility] [address] [place], [address] Albumin/Globulin [Mass ratio] 1.7 {ratio} Normal 0.9-2.4 [facility] Comment on above: Performed By: #### L 500.4050, L100.0100 ####[facility] [address] [place], [address] ALK PHOS 99 U/L Normal 35-104 [facility] Comment on above: Performed By: #### L 500.4050, L100.0100 ####[facility] [address] [place], [address] ALT [Catalytic activity/Vol] 19 U/L Normal <=34 [facility] Comment on above: Performed By: #### L 500.4050, L100.0100 ####[facility] [address] [place], [address] AST [Catalytic activity/Vol] 23 U/L Normal <=31 [facility] Comment on above: Performed By: #### L 500.4050, L100.0100 ####[facility] [address] [place], [address] Bilirubin [Mass/Vol] 0.37 mg/dL Normal 0.00-1.30 [facility] Comment on above: Performed By: #### L 500.4050, L100.0100 ####[facility] [address] [place], [address] BUN/CRE 15.1 RATIO Normal 10-20 [facility] Comment on above: Performed By: #### L 500.4050, L100.0100 ####[facility] [address] [place], [address] Calcium [Mass/Vol] 9.5 mg/dL Normal 7.6-11.0 [facility] Comment on above: Performed By: #### L 500.4050, L100.0100 ####[facility] [address] [place], [address] Chloride [Moles/Vol] 107 mmol/L Normal 98-108 [facility] Comment on above: Performed By: #### L 500.4050, L100.0100 ####[facility] [address] [place], [address] CO2 [Moles/Vol] 18.1 mmol/L Low 21.0-32.0 [facility] Comment on above: Performed By: #### L 500.4050, L100.0100 ####[facility] [address] [place], [address] Creatinine [Mass/Vol] 0.68 mg/dL Low 0.70-1.20 [facility] Comment on above: Performed By: #### L 500.4050, L100.0100 ####[facility] [address] [place], [address] GAP 13 Normal 5-15 [facility] Comment on above: Performed By: #### L 500.4050, L100.0100 ####[facility] [address] [place], [address] GFR/1.73 sq M.predicted among non-blacks MDRD (S/P/Bld) [Vol rate/Area] 116 mL/min/{1.73_m2} Normal >60 [facility] Comment on above: Result Comment: mL/m in/1.73m2 CKD-EPI Creatinine Equation (2020) Performed By: #### L 500.4050, L100.0100 ####[facility] [address] [place], [address] Globulin (S) [Mass/Vol] 2.8 g/dL Normal 2.2-4.2 [facility] Comment on above: Performed By: #### L 500.4050, L100.0100 ####[facility] [address] [place], [address] Glucose [Mass/Vol] 97 mg/dL Normal 70-99 [facility] Comment on above: Performed By: #### L 500.4050, L100.0100 ####[facility] [address] [place], [address] Potassium [Moles/Vol] 3.8 mmol/L Normal 3.3-5.1 [facility] Comment on above: Performed By: #### L 500.4050, L100.0100 ####[facility] [address] [place], [address] Sodium [Moles/Vol] 138 mmol/L Normal 133-145 [facility] Comment on above: Performed By: #### L 500.4050, L100.0100 ####[facility] [address] [place], [address] T PROT 7.5 g/dL Normal 5.9-8.4 [facility] Comment on above: Performed By: #### L 500.4050, L100.0100 ####[facility] [address] [place], [address] Urea nitrogen [Mass/Vol] 10 mg/dL Normal 4-19 [facility] Comment on above: Performed By: #### L 500.4050, L100.0100 ####[facility] [address] [place], [address] Eosinophil percentageOrdered By: Kendall Conroy on 11-28-2024 Eosinophils/100 WBC (Bld) 2.2 % 0-5 [facility] Erythrocyte distribution wid th ratioOrdered By: Kendall Conroy on 11-28-2024 Erythrocyte distribution width (RBC) [Ratio] 12.7 % 11.6-14.6 [facility] Erythrocyte distribution wid th standard deviationOrdered By: Kendalltimbo Conroy on 11-28-2024 Erythrocyte distribution width (RBC) [Ratio] 40.7 fl 35.1-43.9 [facility] Glomerular filtration rate ( GFR) estimation/1.73 sq m using serum, plasma, or whole bOrdered By: Kendalltimbo Conroy on 11-28-2024 GFR/1.73 sq M.predicted among non-blacks MDRD (S/P/Bld) [Vol rate/Area] 116 mL/min/{1.73_m2} >60 [facility] Comment on above: mL/min/1.73m2 CKD-EP I Creatinine Equation (2020) Hematocrit Auto (Bld) [Volum e fraction]Ordered By: Kendall Conroy 11-28-2024 Hematocrit (Bld) [Volume fraction] 43.0 % 37-47 [facility] Hemoglobin measurementOrdere d By: Kendall Conroy 11-28-2024 Hemoglobin (Bld) [Mass/Vol] 14.5 g/dL 12.0-15.0 [facility] Immature granulocytes/100 WB C Auto (Bld)Ordered By: Kendall Conroy 11-28-2024 Immature granulocytes/100 WBC (Bld) 0.400 % 0.0-0.9 [facility] Comment on above: IG% - Immature Granu locytes (promyelocytes, myelocytes and metamyelocytes) > 1% indicates that a LEFT SHIFT is Present. Laboratory - Chemistry and C hemistry - challengeOrdered By: Kendall Conroy 11-28-2024 AST [Catalytic activity/Vol] 23 U/L <32 [facility] MCV (mean corpuscular volume ) determinationOrdered By: Kendall Conroy 11-28-2024 MCV (RBC) [Entitic vol] 88.3 fL 81-99 [facility] Mean corpuscular hemoglobin (MCH) determinationOrdered By: Kendalltimbo Conroy 11-28-2024 MCH (RBC) [Entitic mass] 29.8 pg 27.0-32.0 [facility] Mean corpuscular hemoglobin concentration (MCHC) determinationOrdered By: Kendall Conroy on 11-28-2024 MCHC (RBC) [Mass/Vol] 33.7 g/dL 32-36 [facility] Mean platelet volume determi nationOrdered By: Kendall Conroy on 11-28-2024 Platelet mean volume (Bld) [Entitic vol] 9.8 fL 6.2-12.0 [facility] Monocyte percentageOrdered B y: Kendall Conroy on 11-28-2024 Monocytes/100 WBC (Bld) 7.2 % 0-10 [facility] Neutrophil percentageOrdered By: Kendall Conroy on 11-28-2024 Neutrophils/100 WBC (Bld) 64.5 % 47-70 [facility] Nucleated red blood cell per centageOrdered By: Kendall Conroy on 11-28-2024 Nucleated RBC/100 WBC (Bld) [Ratio] 0 % 0-5 [facility] Platelet countOrdered By: Ra torey Conroy on 11-28-2024 Platelets (Bld) [#/Vol] 283 10*3/uL 150-450 [facility] Potassium measurement (mass/ volume)Ordered By: Kendall Conroy on 11-28-2024 Potassium (Unsp spec) [Mass/Vol] 3.8 mmol/L 3.3-5.1 [facility] RBC Auto (Bld) [#/Vol]Ordere d By: Kendall Conroy on 11-28-2024 RBC (Bld) [#/Vol] 4.87 10*6/uL 4.2-5.4 [facility] Serum creatinine measurement (mass/volume)Ordered By: Kendall Conroy on 11-28-2024 Creatinine [Mass/Vol] 0.68 mg/dL Low 0.70-1.20 [facility] Serum globulin measurementOr dered By: Kendall Conroy on 11-28-2024 Globulin (S) [Mass/Vol] 2.8 g/dL 2.2-4.2 [facility] Serum glucose measurement (m ass/volume)Ordered By: Kendall Conroy on 11-28-2024 Glucose [Mass/Vol] 97 mg/dL 70-99 [facility] Serum or plasma alanine diallo otransferase (ALT) measurementOrdered By: Kendall Conroy on 11-28-2024 ALT [Catalytic activity/Vol] 19 U/L <35 [facility] Serum or plasma albumin traci urement (mass/volume)Ordered By: Kendall Conroy on 11-28-2024 Albumin [Mass/Vol] 4.7 g/dL 3.5-5.0 [facility] Serum or plasma albumin/glob ulin mass ratioOrdered By: Kendall Conroy on 11-28-2024 Albumin/Globulin [Mass ratio] 1.7 {ratio} 0.9-2.4 [facility] Serum or plasma alkaline abby sphatase measurementOrdered By: Kendall Conroy on 11-28-2024 ALP [Catalytic activity/Vol] 99 U/L 35-104 [facility] Serum or plasma calcium traci urement (mass/volume)Ordered By: Kendall Conroy on 11-28-2024 Calcium [Mass/Vol] 9.5 mg/dL 7.6-11.0 [facility] Serum or plasma urea nitroge n measurement (mass/volume)Ordered By: Kendall Conroy on 11-28-2024 Urea nitrogen [Mass/Vol] 10 mg/dL 4-19 [facility] Sodium levelOrdered By: Chas Conroy on 11-28-2024 Sodium [Moles/Vol] 138 mmol/L 133-145 [facility] Total proteinOrdered By: Reji Conroy on 11-28-2024 Protein [Mass/Vol] 7.5 g/dL 5.9-8.4 [facility] White blood cell (WBC) count Ordered By: Kendall Conroy on 11-28-2024 WBC (Bld) [#/Vol] 7.7 10*3/uL 4.4-11.0 [facility] Neurology Visit Reporton Neurology Visit Report Normal [facility] Urine Cultureon 11-07-2024 URC Mixed Gram Positive Organisms [place] Count 25,000-50,000 [facility] Mixed contaminants. Submit a new specimen if indicated. Normal [facility] Comment on above: Performed By: #### M 100.2200 ####[facility] [address] [place], [address] Bilirubin Test strip Ql (U)O rdered By: Everardo Espinoza on 11-04-2024 Bilirubin Ql (U) Negative Negative [facility] Emergency Department Summary on 11-04-2024 Emergency Department Summary Normal [facility] Ketones Test strip Ql (U)Ord ered By: Everardo Espinoza on 11-04-2024 Ketones Ql (U) Negative Negative [facility] Microscopic analysis of urin e for red blood cells (RBC)Ordered By: Everardo Espinoza on 11-04-2024 Microscopic analysis of urine for red blood cells (RBC) 0 SEEN /hpf 0-5 [facility] Mucus LM Ql (Urine sed)Order ed By: Everardo Espinoza on 11-04-2024 Mucus Ql (Urine sed) 0 SEEN /hpf [facility] Nitrite Test strip Ql (U)Ord ered By: Everardo Espinoza on 11-04-2024 Nitrite Ql (U) Negative Negative [facility] Protein Test strip Ql (U)Ord ered By: Everardo Espinoza on 11-04-2024 Protein Ql (U) 15 mg/dl High Negative [facility] Squamous epithelial cells de tection in urine sediment by light microscopyOrdered By: Everardo Espinoza on 11-04-2024 Epithelial cells.squamous LM Ql (Urine sed) 0-5 SEEN /hpf 5-10 [facility] Urinalysis, Completeon 11-04 BACTERIA 1+ /hpf Normal None Seen [facility] Comment on above: Order Comment: CLEAN CATCH Performed By: #### L 400.0001 ####[facility] [address] [place], [place], [id number] WBC 5-10 SEEN Normal 0-5 [facility] Comment on above: Order Comment: CLEAN CATCH Performed By: #### L 400.0001 ####[facility] [id number] [place], [address] EPI,SQUAMOUS 0-5 SEEN Normal 5-10 [facility] Comment on above: Order Comment: CLEAN CATCH Performed By: #### L 400.0001 ####[facility] [id number] [place], [address] Mucus Ql (Urine sed) 0 SEEN Normal [facility] Comment on above: Order Comment: CLEAN CATCH Performed By: #### L 400.0001 ####[facility] [address] [place], [address] RBC 0 SEEN Normal 0-5 [facility] Comment on above: Order Comment: CLEAN CATCH Performed By: #### L 400.0001 ####[facility] [address] [place], [place], [id number] Urine clarityOrdered By: Juvenal Espinoza on 11-04-2024 Clarity (U) Sl. Cloudy Clear [facility] Urine color determinationOrd ered By: Everardo Espinoza on 11-04-2024 Color (U) Yellow Yellow [facility] Urine cultureOrdered By: Juvenal Espinoza on 11-04-2024 Bacteria identified Cx Nom (U) Positive Abnormal [facility] Urine glucose detectionOrder ed By: Everardo Espinoza on 11-04-2024 Glucose Ql (U) Normal mg/dl Normal [facility] Urine leukocyte esterase det ection by dipstickOrdered By: Everardo Espinoza on 11-04-2024 Leukocyte esterase Test strip Ql (U) 25 /ul High Negative [facility] Urine pHOrdered By: Everardo Espinoza on 11-04-2024 pH (U) 7.0 [pH] 5.0 - 8.0 [facility] Urine sediment bacteria coun t by microscopy (number/high power field)Ordered By: Everardo Espinoza on 11-04-2024 Bacteria LM.HPF (Urine sed) [#/Area] 1 /[HPF] None Seen [facility] Urine specific gravity measu rementOrdered By: Everardo Espinoza on 11-04-2024 Specific gravity (U) [Rel density] 1.010 1.002-1.03 0 [facility] Urine urobilinogen measureme ntOrdered By: Everardo Espinoza on 11-04-2024 Urobilinogen Ql (U) 4 mg/dl High Normal [facility] White blood cell countOrdere d By: Everardo Espinoza on 11-04-2024 White blood cell count 5-10 SEEN /hpf 0-5 [facility] Internal Medicine Office Vis iton 11-02-2024 Internal Medicine Office Visit Normal [facility] Chest PA and Lateralon 10-13 Chest PA and Lateral Normal [facility] Internal Medicine Office Vis iton 10-13-2024 Internal Medicine Office Visit Normal [facility] Lamotrigine (Lamictal) Level on 10-10-2024 LAMOTRIGINE 8.6 ug/mL Normal 2.0-20.0 [facility] Comment on above: Result Comment: Dete ction Limit = 1.0Performed at: [facility] [address] [id number] Director: Dakota Beal MD, Phone: [phone] Performed By: #### L 1680.4400 ####[facility] [address] [place], [address] Basic metabolic 2000 panelon 10-09-2024 Anion gap [Moles/Vol] 15 mmol/L Normal 8-15 [facility] Comment on above: Order Comment: Speci men Type: BLOOD SPECIMENOrdering Facility: [facility] Address: [address] [place] [address] Performed By: #### 2 777-1, , 04061-9 ####[facility] LABORATORYCLIA [id number] [place] [address] [place] Calcium [Mass/Vol] 9.4 mg/dL Normal 8.5-10.2 [facility] Comment on above: Order Comment: Speci men Type: BLOOD SPECIMENOrdering Facility: [facility] Address: [address] [place] [address] Performed By: #### 2 777-1, , 09111-4 ####[facility] LABORATORYCLIA [id number] [place], [place] [address] [place] [address] [place] Chloride [Moles/Vol] 106 mmol/L Normal 98-107 [facility] Comment on above: Order Comment: Speci men Type: BLOOD SPECIMENOrdering Facility: [facility] Address: [address] [place] [address] Performed By: #### 2 777-1, , 96704-0 ####[facility] LABORATORYCLIA [id number] [address] [place] CO2 [Moles/Vol] 21 mmol/L Low 22-30 [facility] Comment on above: Order Comment: Speci men Type: BLOOD SPECIMENOrdering Facility: [facility] Address: [address] [place] [address] Performed By: #### 2 777-1, , ####[facility] [id number] [address] OF [facility] Creatinine [Mass/Vol] 0.67 mg/dL Normal 0.58-0.96 [facility] Comment on above: Order Comment: Speci men Type: BLOOD SPECIMENOrdering Facility: [facility] Address: [address] [place] [address] Performed By: #### 2 777-1, , ####[facility] LABORATORYCLIA [id number] [address] Creatinine and Glomerular filtration rate.predicted panel (S/P/Bld) 116 mL/min/1.73m??? Normal >=60 [facility] Comment on above: Order Comment: Speci men Type: BLOOD SPECIMENOrdering Facility: [facility] Address: [address] [place] [address] Result Comment: Mary mated Glomerular Filtration Rate [...] reflect actual GFR. Performed By: #### 2 777-1, , 71055-6 ####[facility] LABORATORYCLIA [id number] [place] [id number] [place] Glucose [Mass/Vol] 104 mg/dL High 74-99 [facility] Comment on above: Order Comment: Specvishal pickens Type: BLOOD SPECIMENOrdering Facility: [facility] Address: [address] [place] [address] Result Comment: The [place] [employer] (ADA) provides guidance for cutoff [...] Standards of Medical Care in Diabetes 2016, [place] [employer]. Diabetes Care. 2016.39(Suppl 1). Performed By: #### 2 777-1, , ####[facility] LABORATORYCLIA [id number] [place] [address] [place] Potassium [Moles/Vol] 3.6 mmol/L Low 3.7-5.1 [facility] Comment on above: Order Comment: Juan Jose pickens Type: BLOOD SPECIMENOrdering Facility: [facility] Address: [address] [place] [address] Performed By: #### 2 777-1, , 62388-5 ####[facility] LABORATORYIA [id number] [place] [address] [place] Sodium [Moles/Vol] 142 mmol/L Normal 136-144 [facility] Comment on above: Order Comment: Juan Jose pickens Type: BLOOD SPECIMENOrdering Facility: [facility] Address: [address] [place] [id number] Performed By: #### 2 777-1, 14883-3, 64928-7 ####[facility] LABORATORYCLIA [id number] [place] [address] [place] Urea nitrogen [Mass/Vol] 6 mg/dL Low 7-21 [facility] Comment on above: Order Comment: Speci men Type: BLOOD SPECIMENOrdering Facility: [facility] Address: [address] [place] [address] Performed By: #### 2 777-1, , 42631-4 ####[facility] LABORATORYCLIA [id number] [place] [address] [place] OF [facility] CBC panel Auto (Bld)on 10-09 Erythrocyte distribution width (RBC) [Ratio] 12.8 % Normal 11.5-15.0 [facility] Comment on above: Order Comment: Speci men Type: BLOOD SPECIMENOrdering Facility: [facility] Address: [address] [place] [address] Performed By: #### 5 8410-2 ####[facility] LABORATORYCLIA [id number] [address] STATES OF [facility] Hematocrit (Bld) [Volume fraction] 39.7 % Normal 36.0-46.0 [facility] Comment on above: Order Comment: Speci men Type: BLOOD SPECIMENOrdering Facility: [facility] Address: [address] [place] [address] Performed By: #### 5 8410-2 ####[facility]ORATORYCLIA [id number] [place] [id number] [place] Hemoglobin (Bld) [Mass/Vol] 13.0 g/dL Normal 11.5-15.5 [facility] Comment on above: Order Comment: Speci men Type: BLOOD SPECIMENOrdering Facility: [facility] Address: [address] [place] [address] Performed By: #### 5 8410-2 ####[facility] LABORATORYCLIA [id number] [address] [place] MCH (RBC) [Entitic mass] 30.0 pg Normal 26.0-34.0 [facility] Comment on above: Order Comment: Speci men Type: BLOOD SPECIMENOrdering Facility: [facility] Address: [address] [place] [address] Performed By: #### 5 8410-2 ####[facility]ORATORYCLIA [id number] [address] [place] MCHC (RBC) [Mass/Vol] 32.7 g/dL Normal 30.5-36.0 [facility] Comment on above: Order Comment: Speci men Type: BLOOD SPECIMENOrdering Facility: [facility] Address: [address] [place] [address] Performed By: #### 5 8410-2 ####[facility]ORATORYCLIA [id number] [address] [place] MCV (RBC) [Entitic vol] 91.5 fL Normal 80.0-100.0 [facility] Comment on above: Order Comment: Speci men Type: BLOOD SPECIMENOrdering Facility: [facility] Address: [address] [place] [address] Performed By: #### 5 8410-2 ####[facility]ORATORYCLIA [id number] [address] [place] Nucleated RBC (Bld) [#/Vol] 10*3/uL Normal <0.01 [facility] Comment on above: Order Comment: Speci men Type: BLOOD SPECIMENOrdering Facility: [facility] Address: [address] [place] [address] Performed By: #### 5 8410-2 ####[facility]ORATORYCLIA [id number] [address] [place] Platelet mean volume (Bld) [Entitic vol] 9.3 fL Normal 9.0-12.7 [facility] Comment on above: Order Comment: Speci men Type: BLOOD SPECIMENOrdering Facility: [facility] Address: [address] [place] [address] Performed By: #### 5 8410-2 ####[facility]ORATORYCLIA [id number] [place] [address] [place] Platelets (Bld) [#/Vol] 241 10*3/uL Normal 150-400 [facility] Comment on above: Order Comment: Speci men Type: BLOOD SPECIMENOrdering Facility: [facility] Address: [address] [place] [address] Performed By: #### 5 8410-2 ####[facility]ORATORYCLIA [id number] [place] [id number] [facility] OF [facility] RBC (Bld) [#/Vol] 4.34 10*6/uL Normal 3.90-5.20 [facility] Comment on above: Order Comment: Speci men Type: BLOOD SPECIMENOrdering Facility: [facility] Address: [address] [place] [address] Performed By: #### 5 8410-2 ####[facility]ATORYCLIA [id number] [address] WBC (Bld) [#/Vol] 7.69 10*3/uL Normal 3.70-11.00 [facility] Comment on above: Order Comment: Speci men Type: BLOOD SPECIMENOrdering Facility: [facility] Address: [address] [place] [address] Performed By: #### 5 8410-2 ####[facility]ORATORYCLIA [id number] [place] [id number] [facility] CNDSon 10-09-2024 CNDS HNO ID: [id number] Author: MICHELLE PATEL MD Service: Hospital Medicine [...] MEDICAL TEAM: [facility] Doctor: Michelle Patel,Blayne Primary Care Provider: Dylan Velarde CNP My [...] call for appointment?: Yes Leander Patel MD [phone] [address] [place] [address] PCP Requested Referral Additional Provider to Provider [...] results. FOLLOW-UP APPOINTMENTS ALREADY SCHEDULED WITH A [facility] PROVIDER: Future Appointments Date Time Provider Department Center 12/07/2024 11:00 AM Heladio Mitchell MD [facility] ALLERGIES Allergen Reactions Barium Sulfate Other: [...] was changed. (more content not included)... Normal [facility] CONSULTon 10-09-2024 CONSULT HNO ID: [id number] Author: BONG SINGLETARY APRN.CNP Service: Gastroenterology Author [...] transit constipation and depression who presented to [facility] with c/o breakthrough seizure/status epilepticus via EMS. According to chart review and bedside evaluation with the patient with her mother present, she was given intranasal diazepam by her mother for concerns of seizure. The patient's mother was concerned that she appeared post-ictal longer than normal and called EMS. In the ED at [facility], she began to have a seizure and underwent intubation for airway protection following ativan administration. She was then transferred to [place] for neurology evaluation and management. She remained [...] 9 years of age Fell off the [employer] bars; lost consciousness 3-5 minutes PAST SURGICAL HISTORY Procedure Laterality Date APPENDECTOMY COLONOSCOPY 04/08/2022 No repeat due to age CONIZATION OF CERVIX; COLD KNIFE/LASER 10/17/2021 Paragard removal, Mirena IUD insertion HIP SURGERY HX Right INSJ TUNNELED CTR VAD W/SUBQ PORT AGE 3 YR/> 10/16/2020 LEEP PROCEDURE (INSURANCE ADVISER DEPT)_*FL THYMECTOMY, PARTIAL/TOTAL total FAMILY HISTORY Problem [...] hr tabletTake (more content not included)... Normal [facility] CONSULT PROGon 10-09-2024 CONSULT PROG HNO ID: [id number] Author: SALOME GALE APRN.SUPERVISOR TYPESETTING Service: Neurology General Author Type: Nurse Practitioner [...] anxiety disorder who presents as transfer from [facility] with complaint of breakthrough seizure/status epilepticus. [...] diazepam, therefore EMS called. In ED at [facility], patient reportedly returned to baseline but then began to seize again, prompting ativan administration and intubation for airway protection. CT brain negative. Labs, UA unremarkable. No reported trauma. Per patient's mother, compliant with meds, no missed doses. Patient subsequently transferred here for further management of seizures. Hospital Course: 10/08/2024- No seizures overnight, remains stable post extubation, no acute issues overnight. Transferred to [facility] Seizure Neuro checks q4h, tele [...] or tu (more content not included)... Normal [facility] Magnesium SerPl-mCncon 10-09 Magnesium [Mass/Vol] 1.8 mg/dL Normal 1.7-2.3 [facility] Comment on above: Order Comment: Speci men Type: BLOOD SPECIMENOrdering Facility: [facility] Address: [address] [place] [address] Performed By: #### 2 777-1, 00930-5, 45588-1 ####[facility]ATORYCLIA [id number] [place] [id number] [place] Phosphate SerPl-mCncon 10-09 Phosphate [Mass/Vol] 2.8 mg/dL Normal 2.7-4.8 [facility] Comment on above: Order Comment: Speci men Type: BLOOD SPECIMENOrdering Facility: [facility] Address: [address] [place] [address] Performed By: #### 2 777-1, 94415-9, 78518-4 ####[facility]ORATORYCLIA [id number] [place] [address] [place] [facility] THERAPY NTon 10-09-2024 THERAPY NT HNO ID: [id number] Author: WALLACE SEGOVIA CCC-STORAGE GARAGE ATTENDANT Service: Speech/Swallow Author Type: Speech Language Pathologist Type: Therapy (PT/OT/Speech/Resp) Filed: 10/09/2024 16:00 Note Text: Speech Therapy Clinical Swallow Evaluation SERVICE DATE: 10/09/2024 SERVICE TIME: 1530 to 1545 ROOM: [address] Functional oropharyngeal phases of swallowing: without identified [...] Dysphagia, unspecified TREATMENT INTERVENTIONS Clinical Swallow Evaluation (37183) Skilled Treatment Time (minutes): 15 $ Clinical Swallow Evaluation (53994) Billed Units: 1 unit TRAINING AND EDUCATION [...] Dietary Consistencies, Swallowing Strategies SIGNATURE: Wallace Segovia CCC-STORAGE GARAGE ATTENDANT PATIENT NAME: Doug Flanagan DATE: October 09, 2024 TIME: 3:54 PM Normal [facility] THERAPY NT HNO ID: [id number] Author: MARI RODRÍGUEZ PT Service: Physical Therapy Author Type: Physical Therapist Type: Therapy (PT/OT/Speech/Resp) Filed: 10/09/2024 15:29 Note Text: Physical Therapy Evaluation Summary SERVICE DATE: 10/09/2024 SERVICE TIME: 1420 to 1435 ROOM: [place] [address] PT 6 Clicks Score: 20 DISCHARGE RECOMMENDATIONS [...] Skilled Treatment Time (minutes): 15 $ Evaluation-Moderate (68907) Billed Units: 1 unit TRAINING AND EDUCATION [...] Goals met Treatment Interventions: Education SIGNATURE: Mari Rodríguez PT PATIENT NAME: oDug Flanagan DATE: October 09, 2024 TIME: 3:29 PM Normal [facility] Basic metabolic 2000 panelon 10-08-2024 Anion gap [Moles/Vol] 9 mmol/L Normal 8-15 [facility] Comment on above: Order Comment: Speci men Type: BLOOD SPECIMENOrdering Facility: [facility] Address: [address] [place] [address] Performed By: #### 2 4321-2, , 2776-05 ####[facility]ATORYCLIA [id number] [place] [address] [place] Calcium [Mass/Vol] 8.3 mg/dL Low 8.5-10.2 [facility] Comment on above: Order Comment: Speci men Type: BLOOD SPECIMENOrdering Facility: [facility] Address: [address] [place] [address] Performed By: #### 2 4321-2, , 2776-05 ####[facility]ATORYCLIA [id number] [place] [address] [place] Chloride [Moles/Vol] 112 mmol/L High 98-107 [facility] Comment on above: Order Comment: Speci men Type: BLOOD SPECIMENOrdering Facility: [facility] Address: [address] [place] [address] Performed By: #### 2 4321-2, , 2776-05 ####[facility]ATORYCLIA [id number] [place] [address] [place] CO2 [Moles/Vol] 21 mmol/L Low 22-30 [facility] Comment on above: Order Comment: Speci men Type: BLOOD SPECIMENOrdering Facility: [facility] Address: [address] [place] [address] Performed By: #### 2 4321-2, , 2776-05 ####[facility]ATORYCLIA [id number] [place] [address] [place] Creatinine [Mass/Vol] 0.65 mg/dL Normal 0.58-0.96 [facility] Comment on above: Order Comment: Juan Jose pickens Type: BLOOD SPECIMENOrdering Facility: [facility] Address: [address] [place] [id number] Performed By: #### 2 4321-2, , 2776-05 ####[facility]ORATORYCLIA [id number] [address] [place] Creatinine and Glomerular filtration rate.predicted panel (S/P/Bld) 117 mL/min/1.73m??? Normal >=60 [facility] Comment on above: Order Comment: Juan Jose pickens Type: BLOOD SPECIMENOrdering Facility: [facility] Address: [address] [place] [address] Result Comment: Mary mated Glomerular Filtration Rate [...] actual GFR. Performed By: #### 2 4321-2, , 2776-05 ####[facility] LABORATORYCLIA [id number] [place] [address] [place] Glucose [Mass/Vol] 80 mg/dL Normal 74-99 [facility] Comment on above: Order Comment: Juan Jose pickens Type: BLOOD SPECIMENOrdering Facility: [facility] Address: [address] [place] [address] Result Comment: The [place] Diabetes [employer] (ADA) provides guidance for cutoff [...] Standards of Medical Care in Diabetes 2016, [place] [employer]. Diabetes Care. 2016.39(Suppl 1). Performed By: #### 2 4321-2, , 2776-05 ####[facility]ATORYCLIA [id number] [place] [address] [place] Potassium [Moles/Vol] 3.8 mmol/L Normal 3.7-5.1 [facility] Comment on above: Order Comment: Speci men Type: BLOOD SPECIMENOrdering Facility: [facility] Address: [address] [place] [address] Performed By: #### 2 4321-2, , 2776-05 ####[facility]ATORYCLIA [id number] [address] STATES OF [facility] Sodium [Moles/Vol] 142 mmol/L Normal 136-144 [facility] Comment on above: Order Comment: Speci men Type: BLOOD SPECIMENOrdering Facility: [facility] Address: [address] [place] [address] Performed By: #### 2 4321-2, , 2776-05 ####[facility] LABORATORYCLIA [id number] [address] [place] Urea nitrogen [Mass/Vol] 6 mg/dL Low 7-21 [facility] Comment on above: Order Comment: Speci men Type: BLOOD SPECIMENOrdering Facility: [facility] Address: [address] [place] [address] Performed By: #### 2 4321-2, , 2776-05 ####[facility] LABORATORYCLIA [id number] [place] [address] [place] CBC panel Auto (Bld)on 10-08 Erythrocyte distribution width (RBC) [Ratio] 13.0 % Normal 11.5-15.0 [facility] Comment on above: Order Comment: Speci men Type: BLOOD SPECIMENOrdering Facility: [facility] Address: [address] [place] [address] Performed By: #### 5 8410-2 ####[facility] LABORATORYCLIA [id number] [address] STATES OF [facility] Hematocrit (Bld) [Volume fraction] 36.4 % Normal 36.0-46.0 [facility] Comment on above: Order Comment: Speci men Type: BLOOD SPECIMENOrdering Facility: [facility] Address: [address] [place] [address] Performed By: #### 5 8410-2 ####[facility] LABORATORYCLIA [id number] [address] [place] Hemoglobin (Bld) [Mass/Vol] 11.6 g/dL Normal 11.5-15.5 [facility] Comment on above: Order Comment: Speci men Type: BLOOD SPECIMENOrdering Facility: [facility] Address: [address] [place] [address] Performed By: #### 5 8410-2 ####[facility] LABORATORYCLIA [id number] [address] STATES [facility] MCH (RBC) [Entitic mass] 29.4 pg Normal 26.0-34.0 [facility] Comment on above: Order Comment: Speci men Type: BLOOD SPECIMENOrdering Facility: [facility] Address: [address] [place] [address] Performed By: #### 5 8410-2 ####[facility] LABORATORYCLIA [id number] [address] [place] MCHC (RBC) [Mass/Vol] 31.9 g/dL Normal 30.5-36.0 [facility] Comment on above: Order Comment: Speci men Type: BLOOD SPECIMENOrdering Facility: [facility] Address: [address] [place] [address] Performed By: #### 5 8410-2 ####[facility] LABORATORYCLIA [id number] [address] [place] MCV (RBC) [Entitic vol] 92.4 fL Normal 80.0-100.0 [facility] Comment on above: Order Comment: Speci men Type: BLOOD SPECIMENOrdering Facility: [facility] Address: [address] [place] [address] Performed By: #### 5 8410-2 ####[facility] LABORATORYCLIA [id number] [address] [place] Nucleated RBC (Bld) [#/Vol] 10*3/uL Normal <0.01 [facility] Comment on above: Order Comment: Speci men Type: BLOOD SPECIMENOrdering Facility: [facility] Address: [address] [place] [address] Performed By: #### 5 8410-2 ####[facility] LABORATORYCLIA [id number] [address] [place] Platelet mean volume (Bld) [Entitic vol] 9.8 fL Normal 9.0-12.7 [facility] Comment on above: Order Comment: Speci men Type: BLOOD SPECIMENOrdering Facility: [facility] Address: [address] [place] [address] Performed By: #### 5 8410-2 ####[facility] LABORATORYCLIA [id number] [address] [place] Platelets (Bld) [#/Vol] 216 10*3/uL Normal 150-400 [facility] Comment on above: Order Comment: Speci men Type: BLOOD SPECIMENOrdering Facility: [facility] Address: [address] [place] [address] Performed By: #### 5 8410-2 ####[facility] LABORATORYCLIA [id number] [address] [place] RBC (Bld) [#/Vol] 3.94 10*6/uL Normal 3.90-5.20 [facility] Comment on above: Order Comment: Speci men Type: BLOOD SPECIMENOrdering Facility: [facility] Address: [address] [place] [address] Performed By: #### 5 8410-2 ####[facility] LABORATORYCLIA [id number] [place] [address] [place] WBC (Bld) [#/Vol] 9.43 10*3/uL Normal 3.70-11.00 [facility] Comment on above: Order Comment: Speci men Type: BLOOD SPECIMENOrdering Facility: [facility] Address: [address] [place] [address] Performed By: #### 5 8410-2 ####[facility] LABORATORYCLIA [id number] [place] [id number] [facility] Magnesium SerPl-mCncon 10-08 Magnesium [Mass/Vol] 1.8 mg/dL Normal 1.7-2.3 [facility] Comment on above: Order Comment: Speci men Type: BLOOD SPECIMENOrdering Facility: [facility] Address: [address] [place] [address] Performed By: #### 2 4321-2, 69644-5, 2777-1 ####[facility] LABORATORYCLIA [id number] [address] NURSING PROGon 10-08-2024 NURSING PROG HNO ID: [id number] Author: TYRELL ALEJANDRO RN Service: Nursing Author Type: Registered Nurse Type: Nursing Progress Note Filed: 10/08/2024 15:52 Note Text: Patient given 1- soap reuben enema. Patient felt nauseous after 1 and would like to wait on the 2nd. Minimal output from enema.GI doctor informed of situation. Normal [facility] NUTRITIONon 10-08-2024 NUTRITION HNO ID: [id number] Author: ATIF CHOI RD Service: Nutrition Therapy [...] to pureed per pt request (and/or per STORAGE GARAGE ATTENDANT recommendations) Supplements: Ensure Clear (needs low Mag/K and no soy option) Refer to: Nutrition Therapy for outpatient RD visit Vitamins and Minerals: Multivitamin without minerals Monitor and Evaluation: Meet greater than 75% of estimated needs, Monitor bowel function, Monitor labs, I/Os, vital signs, weight Discharge Recommendations: Diet, Oral Supplements, Outpatient Nutrition Therapy appointment Diet: as tolerated/per STORAGE GARAGE ATTENDANT Oral Supplements: high protein, high calorie item [...] constipation, abdominal pain, bloating. She mainly eats soft/itmo-tk-rfulrf foods. She states she eats baby food, [...] 49.9 kg (110 lb) Dosing Weight Type: [place] body weight Estimated kilocalorie needs: 7596-2502 Calorie Calculation Method: 25-30 kcals/kg Estimated protein [...] oz) 08/18/2024 73.3 kg (161 lb) - [facility] 07/06/2024 72.9 kg (160 lb) 04/12/2024 [...] October 08, 2024 TIME: 10:33 AM Normal [facility] Phosphate SerPl-mCncon 10-08 Phosphate [Mass/Vol] 2.9 mg/dL Normal 2.7-4.8 [facility] Comment on above: Order Comment: Juan Jose pickens Type: BLOOD SPECIMENOrdering Facility: [facility] Address: [address] [place] [address] Performed By: #### 2 4321-2, 50279-1, 2777-1 ####[facility] LABORATORYCLIA [id number] [place] [address] [place] TSH W/REFLEX FT4on 5 TSH Qn 1.300 m[IU]/L Normal 0.270-4.20 0 [facility] Comment on above: Order Comment: Juna Jose pickens Type: BLOOD SPECIMENOrdering Facility: [facility] Address: [address] [place] [address] Result Comment: If t he patient is , TSH reference range varies by gestational period: First Trimester (weeks 9-12): 0.180-2.990 mIU/L Second Trimester: 0.110-3.980 mIU/L Third Trimester: 0.480-4.710 mIU/L Kirt Fierro et al. A Practical Approach for the Verifications and Determination of Site- and Trimester-Specific Reference Intervals for Thyroid Function tests in . Thyroid, 2019:29:3:412-420. Richie Hannon et al. 2017 Guidelines of the [place] Thyroid Association for the Diagnosis and Management of Thyroid Disease during and the . Thyroid, 2017:27:3:315-389. Performed By: #### [facility] ####[facility]ORATORYCLIA [id number] [place] [address] [place] Bacteria Spec Resp Culton Bacteria identified Respiratory culture Nom (Unsp spec) CULTURE, RESPIRATORY: Moderate Normal respiratory mary present ORGANISM ID: 1 Rare Staphylococcus aureus Insignificant colony count. No further workup. GRAM STAIN: Few Mixed oral mary Few Polymorphonuclear leukocytes Abnormal [facility] Comment on above: Performed By: #### 3 2355-0 ####[facility]ITALCLIA [id number] [place] [address] [place] Basic metabolic 2000 panelon 10-07-2024 Anion gap [Moles/Vol] 11 mmol/L Normal 8-15 [facility] Comment on above: Order Comment: Speci men Type: BLOOD SPECIMENOrdering Facility: [facility] Address: [address] [place] [address] Performed By: #### 2 4321-2, 2777, ####[facility]ITALCLIA [id number] [place] [address] [place] Calcium [Mass/Vol] 8.8 mg/dL Normal 8.5-10.2 [facility] Comment on above: Order Comment: Speci men Type: BLOOD SPECIMENOrdering Facility: [facility] Address: [address] [place] [address] Performed By: #### 2 4321-2, 2777-1, ####[facility] LABORATORYCLIA [id number] [place] [id number] [place] [facility] Chloride [Moles/Vol] 110 mmol/L High 98-107 [facility] Comment on above: Order Comment: Speci men Type: BLOOD SPECIMENOrdering Facility: [facility] Address: [address] [place], [place] [address] Performed By: #### 2 4321-2, 2776-05, ####[facility]ORATORYCLIA [id number] [address] OF [facility] CO2 [Moles/Vol] 22 mmol/L Normal 22-30 [facility] Comment on above: Order Comment: Speci men Type: BLOOD SPECIMENOrdering Facility: [facility] Address: [address] [place] [address] Performed By: #### 2 4321-2, 2776-05, ####[facility]ITALCLIA [id number] [address] OF [facility] Creatinine [Mass/Vol] 0.57 mg/dL Low 0.58-0.96 [facility] Comment on above: Order Comment: Speci men Type: BLOOD SPECIMENOrdering Facility: [facility] Address: [address] [place] [address] Performed By: #### 2 4321-2, 2776-05, ####[facility] LABORATORYCLIA [id number] [address] Creatinine and Glomerular filtration rate.predicted panel (S/P/Bld) 121 mL/min/1.73m??? Normal >=60 [facility] Comment on above: Order Comment: Speci men Type: BLOOD SPECIMENOrdering Facility: [facility] Address: [address] [place], [place] [address] Result Comment: Mary mated Glomerular Filtration Rate [...] actual GFR. Performed By: #### 2 4321-2, 27710-31, ####[facility]ORATORYCLIA [id number] [place] [address] [place] Glucose [Mass/Vol] 96 mg/dL Normal 74-99 [facility] Comment on above: Order Comment: Speci men Type: BLOOD SPECIMENOrdering Facility: [facility] Address: [address] [place] [address] Result Comment: The [place] Diabetes Association (ADA) provides guidance for cutoff [...] Standards of Medical Care in Diabetes 2016, [place] Diabetes Association. Diabetes Care. 2016.39(Suppl 1). Performed By: #### 2 4321-2, 2776-05, ####[facility]ORATORYCLIA [id number] [place] [address] [place] Potassium [Moles/Vol] 3.3 mmol/L Low 3.7-5.1 [facility] Comment on above: Order Comment: Speci men Type: BLOOD SPECIMENOrdering Facility: [facility] Address: [address] [place] [address] Performed By: #### 2 4321-2, 2776-05, ####[facility]ORATORYCLIA [id number] [place] [address] [place] Sodium [Moles/Vol] 143 mmol/L Normal 136-144 [facility] Comment on above: Order Comment: Speci men Type: BLOOD SPECIMENOrdering Facility: [facility] Address: [address] [place], [place] [address] Performed By: #### 2 4321-2, 2776-, ####[facility]ORATORYCLIA [id number] [place] [address] [place] [facility] Urea nitrogen [Mass/Vol] 4 mg/dL Low 7-21 [facility] Comment on above: Order Comment: Speci men Type: BLOOD SPECIMENOrdering Facility: [facility] Address: [address] [place] [address] Performed By: #### 2 4321-2, 2776-, ####[facility]ORATORYCLIA [id number] [place] [id number] [facility] CBC panel Auto (Bld)on 10-07 Erythrocyte distribution width (RBC) [Ratio] 13.2 % Normal 11.5-15.0 [facility] Comment on above: Order Comment: Speci men Type: BLOOD SPECIMENOrdering Facility: [facility] Address: [address] [place] [address] Performed By: #### 5 8410-2 ####[facility]ORATORYCLIA [id number] [address] STATES OF [facility] Hematocrit (Bld) [Volume fraction] 36.4 % Normal 36.0-46.0 [facility] Comment on above: Order Comment: Speci men Type: BLOOD SPECIMENOrdering Facility: [facility] Address: [address] [place] [address] Performed By: #### 5 8410-2 ####[facility]ORATORYCLIA [id number] [place] [id number] [place] [facility] Hemoglobin (Bld) [Mass/Vol] 12.2 g/dL Normal 11.5-15.5 [facility] Comment on above: Order Comment: Speci men Type: BLOOD SPECIMENOrdering Facility: [facility] Address: [address] [place] [address] Performed By: #### 5 8410-2 ####[facility]ORATORYCLIA [id number] [address] [place] MCH (RBC) [Entitic mass] 29.7 pg Normal 26.0-34.0 [facility] Comment on above: Order Comment: Speci men Type: BLOOD SPECIMENOrdering Facility: [facility] Address: [address] [place] [address] Performed By: #### 5 8410-2 ####[facility]ORATORYCLIA [id number] [address] STATES OF [facility] MCHC (RBC) [Mass/Vol] 33.5 g/dL Normal 30.5-36.0 [facility] Comment on above: Order Comment: Speci men Type: BLOOD SPECIMENOrdering Facility: [facility] Address: [address] [place] [address] Performed By: #### 5 8410-2 ####[facility]ORATORYCLIA [id number] [address] [place] MCV (RBC) [Entitic vol] 88.6 fL Normal 80.0-100.0 [facility] Comment on above: Order Comment: Speci men Type: BLOOD SPECIMENOrdering Facility: [facility] Address: [address] [place] [address] Performed By: #### 5 8410-2 ####[facility] LABORATORYCLIA [id number] [address] Nucleated RBC (Bld) [#/Vol] 10*3/uL Normal <0.01 [facility] Comment on above: Order Comment: Speci men Type: BLOOD SPECIMENOrdering Facility: [facility] Address: [address] [place] [address] Performed By: #### 5 8410-2 ####[facility]ORATORYCLIA [id number] [address] [place] Platelet mean volume (Bld) [Entitic vol] 9.1 fL Normal 9.0-12.7 [facility] Comment on above: Order Comment: Speci men Type: BLOOD SPECIMENOrdering Facility: [facility] Address: [address] [place] [address] Performed By: #### 5 8410-2 ####[facility] LABORATORYCLIA [id number] [place] [address] [facility] Platelets (Bld) [#/Vol] 201 10*3/uL Normal 150-400 [facility] Comment on above: Order Comment: Speci men Type: BLOOD SPECIMENOrdering Facility: [facility] Address: [address] [place] [address] Performed By: #### 5 8410-2 ####[facility]ORATORYCLIA [id number] [place] [address] [place] RBC (Bld) [#/Vol] 4.11 10*6/uL Normal 3.90-5.20 [facility] Comment on above: Order Comment: Speci men Type: BLOOD SPECIMENOrdering Facility: [facility] Address: [address] [place] [address] Performed By: #### 5 8410-2 ####[facility]ORATORYCLIA [id number] [address] OF [facility] WBC (Bld) [#/Vol] 13.98 10*3/uL High 3.70-11.00 [facility] Comment on above: Order Comment: Speci men Type: BLOOD SPECIMENOrdering Facility: [facility] Address: [address] [place] [address] Performed By: #### 5 8410-2 ####[facility]ORATORYCLIA [id number] [place] [id number] [facility] ECG COMPLETEon 10-07-2024 ECG COMPLETE Ventricular Rate : 9 0 BPM Atrial Rate : 90 BPM P-R Interval : 178 ms QRS Duration : 84 ms Q-T Interval : 358 ms QTC Calculation(Bazett) : 437 ms Calculated P [place] : 53 degrees Calculated R [place] : 48 degrees Calculated T [place] : -23 degrees NORMAL SINUS RHYTHM T WAVE ABNORMALITY, CONSIDER INFERIOR ISCHEMIA T WAVE ABNORMALITY, CONSIDER ANTEROLATERAL ISCHEMIA ABNORMAL ECG WHEN COMPARED WITH ECG OF 17-Dec-2016 16:04, T WAVE INVERSION NOW EVIDENT IN INFERIOR LEADS T WAVE INVERSION NOW EVIDENT IN ANTEROLATERAL LEADS Confirmed by MD VASHTI, BRAYAN ([id number]) on 10/09/2024 4:46:55 PM NAME : DOUG FLANAGAN PID : [id number] : 1990 Gender : Female Race : ORD : [id number] Procedure Date : Oct 07 2024 06:31:02 Edit Date : Oct 09 2024 16:46:57 Diagnosis: NORMAL SINUS RHYTHM T WAVE ABNORMALITY, CONSIDER INFERIOR ISCHEMIA T WAVE ABNORMALITY, CONSIDER ANTEROLATERAL ISCHEMIA ABNORMAL ECG WHEN COMPARED WITH ECG OF 17-Dec-2016 16:04, T WAVE INVERSION NOW EVIDENT IN INFERIOR LEADS T WAVE INVERSION NOW EVIDENT IN ANTEROLATERAL LEADS Confirmed by MD KINGSTON YASSAR ([id number]) on 10/09/2024 4:46:55 PM Test Reason : Check QT Location : 200 : [facility] 3208 Overread By : MD KINGSTON YASSAR Edited By : MD KINGSTON YASSAR Referred By : ANGELLA JONES Acquired by : DUSTIN DUFF Normal [facility] Gas and Carbon monoxide pane l (BldV)on 10-07-2024 BASE DEFICIT, VENOUS -6 mmol/L Low -2-0 [facility] Comment on above: Order Comment: Speci men Type: VENOUS BLOOD SPECIMENOrdering Facility: [facility] Address: [address] [place] [address] Performed By: #### 2 4344-4 ####[facility]ORATORYCLIA [id number] [address] [place] Body temperature 98.6 [degF] Normal [facility] Comment on above: Order Comment: Speci men Type: VENOUS BLOOD SPECIMENOrdering Facility: [facility] Address: [address] [place] [address] Performed By: #### 2 4344-4 ####[facility] LABORATORYCLIA [id number] [place] [address] [place] Calcium.ionized (BldV) [Mass/Vol] 1.23 mmol/L Normal 1.08-1.30 [facility] Comment on above: Order Comment: Speci men Type: VENOUS BLOOD SPECIMENOrdering Facility: [facility] Address: [address] [place] [address] Performed By: #### 2 4344-4 ####[facility]ORATORYCLIA [id number] [address] OF [facility] Calcium.ionized adjusted to pH 7.4 (BldA) [Moles/Vol] 1.15 mmol/L Normal 1.08-1.30 [facility] Comment on above: Order Comment: Speci men Type: VENOUS BLOOD SPECIMENOrdering Facility: [facility] Address: [address] [place] [address] Performed By: #### 2 4344-4 ####[facility] LABORATORYCLIA [id number] [address] [place] Carboxyhemoglobin (BldV) [Mass fraction] 1.6 % Normal 0.0-2.0 [facility] Comment on above: Order Comment: Speci men Type: VENOUS BLOOD SPECIMENOrdering Facility: [facility] Address: [address] [place] [address] Result Comment: Carb oxyhemoglobin Reference Range for Smokers: 2.0-8.0% Performed By: #### 2 4344-4 ####[facility]ATORYCLIA [id number] [address] [place] Chloride [Moles/Vol] 108 mmol/L High 97-105 [facility] Comment on above: Order Comment: Speci men Type: VENOUS BLOOD SPECIMENOrdering Facility: [facility] Address: [address] [place] [address] Performed By: #### 2 4344-4 ####[facility]ORATORYCLIA [id number] [address] [place] CO2 (BldV) [Partial pressure] 45 mm[Hg] Normal 42-55 [facility] Comment on above: Order Comment: Speci men Type: VENOUS BLOOD SPECIMENOrdering Facility: [facility] Address: [address] [place] [address] Performed By: #### 2 4344-4 ####[facility]ATORYCLIA [id number] [place] [address] [place] FIO2 30 % Normal [facility] Comment on above: Order Comment: Speci men Type: VENOUS BLOOD SPECIMENOrdering Facility: [facility] Address: [address] [place] [address] Performed By: #### 2 4344-4 ####[facility]ORATORYCLIA [id number] [address] [place] Glucose [Mass/Vol] 106 mg/dL High 60-105 [facility] Comment on above: Order Comment: Speci men Type: VENOUS BLOOD SPECIMENOrdering Facility: [facility] Address: [address] [place] [address] Performed By: #### 2 4344-4 ####[facility]ORATORYCLIA [id number] [address] [place] HCO3 (Bld) [Moles/Vol] 21 mmol/L Low 24-28 [facility] Comment on above: Order Comment: Speci men Type: VENOUS BLOOD SPECIMENOrdering Facility: [facility] Address: [address] [place] [address] Performed By: #### 2 4344-4 ####[facility]ORATORYCLIA [id number] [address] [place] Hematocrit (Bld) [Volume fraction] 39.0 % Normal 36.0-46.0 [facility] Comment on above: Order Comment: Speci men Type: VENOUS BLOOD SPECIMENOrdering Facility: [facility] Address: [address] [place] [address] Performed By: #### 2 4344-4 ####[facility]ATORYCLIA [id number] [address] [place] Hemoglobin (Bld) [Mass/Vol] 12.7 g/dL Normal 11.5-15.5 [facility] Comment on above: Order Comment: Speci men Type: VENOUS BLOOD SPECIMENOrdering Facility: [facility] Address: [address] [place] [address] Performed By: #### 2 4344-4 ####[facility]ORYCLIA [id number] [address] [place] INHALED TIDAL VOLUME (ML) 320 Normal [facility] Comment on above: Order Comment: Speci men Type: VENOUS BLOOD SPECIMENOrdering Facility: [facility] Address: [address] [place] [address] Performed By: #### 2 4344-4 ####[facility]ORATORYCLIA [id number] [place], [place] [id number] [place] [address] [place] Lactate [Moles/Vol] 1.4 mmol/L Normal 0.5-2.2 [facility] Comment on above: Order Comment: Speci men Type: VENOUS BLOOD SPECIMENOrdering Facility: [facility] Address: [address] [place] [address] Performed By: #### 2 4344-4 ####[facility]ORYCLIA [id number] [address] Methemoglobin (Bld) [Mass fraction] 1.0 % Normal 0.0-1.5 [facility] Comment on above: Order Comment: Speci men Type: VENOUS BLOOD SPECIMENOrdering Facility: [facility] Address: [address] [place] [address] Performed By: #### 2 4344-4 ####[facility]ATORYCLIA [id number] [address] O2 THERAPY VENT=Ventilator Normal [facility] Comment on above: Order Comment: Speci men Type: VENOUS BLOOD SPECIMENOrdering Facility: [facility] Address: [address] [place] [address] Performed By: #### 2 4344-4 ####[facility]ORATORYCLIA [id number] [address] [place] Oxygen (BldV) [Partial pressure] 68 mm[Hg] High 35-45 [facility] Comment on above: Order Comment: Speci men Type: VENOUS BLOOD SPECIMENOrdering Facility: [facility] Address: [address] [place] [address] Performed By: #### 2 4344-4 ####[facility] LABORATORYCLIA [id number] [place] [address] [place] Oxygen saturation in Venous blood 92 % High 60-85 [facility] Comment on above: Order Comment: Speci men Type: VENOUS BLOOD SPECIMENOrdering Facility: [facility] Address: [address] [place] [address] Performed By: #### 2 4344-4 ####[facility]ORATORYCLIA [id number] [address] [place] Oxyhemoglobin (BldV) [Mass fraction] 89 % High 60-85 [facility] Comment on above: Order Comment: Speci men Type: VENOUS BLOOD SPECIMENOrdering Facility: [facility] Address: [address] [place] [address] Performed By: #### 2 4344-4 ####[facility] LABORATORYCLIA [id number] [address] [place] PEEP/CPAP 5 cmH2O Normal [facility] Comment on above: Order Comment: Speci men Type: VENOUS BLOOD SPECIMENOrdering Facility: [facility] Address: [address] [place] [address] Performed By: #### 2 4344-4 ####[facility] LABORATORYCLIA [id number] [address] pH (BldV) 7.29 [pH] Low 7.32-7.42 [facility] Comment on above: Order Comment: Speci men Type: VENOUS BLOOD SPECIMENOrdering Facility: [facility] Address: [address] [place] [address] Performed By: #### 2 4344-4 ####[facility]ORYCLIA [id number] [address] [place] Potassium [Moles/Vol] 3.7 mmol/L Normal 3.5-5.0 [facility] Comment on above: Order Comment: Speci men Type: VENOUS BLOOD SPECIMENOrdering Facility: [facility] Address: [address] [place] [address] Performed By: #### 2 4344-4 ####[facility]ATORYCLIA [id number] [address] [place] SET VENTILATOR RESPIRATORY RATE (BPM) 14 BPM Normal [facility] Comment on above: Order Comment: Speci men Type: VENOUS BLOOD SPECIMENOrdering Facility: [facility] Address: [address] [place] [address] Performed By: #### 2 4344-4 ####[facility]ORATORYCLIA [id number] [place] [address] [facility] Sodium [Moles/Vol] 142 mmol/L Normal 136-144 [facility] Comment on above: Order Comment: Speci men Type: VENOUS BLOOD SPECIMENOrdering Facility: [facility] Address: [address] [place], [place] [address] Performed By: #### 2 4344-4 ####[facility] LABORATORYCLIA [id number] [place] [address] [facility] HISTORY PHYSICALon HISTORY PHYSICAL HNO ID: [id number] Author: JOHAN LUJAN MD Service: Neurology ICU [...] anxiety disorder who presents as transfer from [facility] with complaint of breakthrough seizure/status epilepticus. [...] diazepam, therefore EMS called. 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 Normal [facility] Magnesium [Mass/Vol] 1.7 mg/dL Normal 1.7-2.3 [facility] Comment on above: Order Comment: Speci men Type: BLOOD SPECIMENOrdering Facility: [facility] Address: [address] [place] [address] Performed By: #### 2 4321-2, 2777-1, 38856-7 ####[facility]ORATORYCLIA [id number] [address] [place] Phosphate SerPl-mCncon 10-07 Phosphate [Mass/Vol] 3.2 mg/dL Normal 2.7-4.8 [facility] Comment on above: Order Comment: Speci men Type: BLOOD SPECIMENOrdering Facility: [facility] Address: [address] [place] [address] Performed By: #### 2 4321-2, 2777-1, 91379-0 ####[facility]ORATORYCLIA [id number] [place] [id number] [facility] [place] THERAPY NTon 10-07-2024 THERAPY NT HNO ID: [id number] Author: LESLY SANTOS RRT Service: Respiratory Therapy [...] 07, 2024 TIME: 9:02 AM PAGER/CONTACT #: Normal [facility] THERAPY NT HNO ID: [id number] Author: LESLY SANTOS RRT Service: Respiratory Therapy [...] 2024 TIME: 8:55 AM PAGER/CONTACT #: Normal [facility] XR ABDOMEN 1V SUPINEon 10-07 XR [...] colon as described. No small bowel distention. Resource Room Teacher: SELENA Transcribe Date/Time: Oct 07 2024 10:53A Dictated by : OLIVIA DALEY MD This examination was interpreted and the report reviewed and electronically signed by: OLIVIA DALEY MD on Oct 07 2024 10:54AM EST [id number] Normal [facility] XR CHEST 1V FRONTAL PORTon 0 10-07-2024 [...] tube by 1 cm for optimal positioning. Resource Room Teacher: [facility] Transcribe Date/Time: Oct 07 2024 1:49A Dictated by : MOO LANDRY DO This examination was interpreted and the report reviewed and electronically signed by: MOO LANDRY DO on Oct 07 2024 1:51AM EST [id number] Normal [facility] 12 Lead EKGon 10-06-2024 12 Lead EKG Normal [facility] ARTERIAL BLOOD GASESon 10-06 Base deficit (BldA) [Moles/Vol] -6 mmol/L Low -2-0 [facility] Comment on above: Order Comment: Speci men Type: ARTERIAL BLOOD SPECIMENOrdering Facility: [facility] Address: [address] [place] [address] Performed By: #### A LLBG ####[facility]ORATORYCLIA [id number] [place] [address] [place] Body temperature 97.88 [degF] Normal [facility] Comment on above: Order Comment: Speci men Type: ARTERIAL BLOOD SPECIMENOrdering Facility: [facility] Address: [address] [place] [address] Performed By: #### A LLBG ####[facility]ORATORYCLIA [id number] [address] [place] Calcium.ionized (BldV) [Mass/Vol] 1.19 mmol/L Normal 1.08-1.30 [facility] Comment on above: Order Comment: Speci men Type: ARTERIAL BLOOD SPECIMENOrdering Facility: [facility] Address: [address] [place] [address] Performed By: #### A LLBG ####[facility]ORATORYCLIA [id number] [place] [address] [place] Calcium.ionized adjusted to pH 7.4 (BldA) [Moles/Vol] 1.18 mmol/L Normal 1.08-1.30 [facility] Comment on above: Order Comment: Speci men Type: ARTERIAL BLOOD SPECIMENOrdering Facility: [facility] Address: [address] [place] [address] Performed By: #### A LLBG ####[facility]ORATORYCLIA [id number] [address] [place] Carboxyhemoglobin (BldA) [Mass fraction] 0.3 % Normal 0.0-2.0 [facility] Comment on above: Order Comment: Speci men Type: ARTERIAL BLOOD SPECIMENOrdering Facility: [facility] Address: [address] [place] [address] Result Comment: Carb oxyhemoglobin Reference Range for Smokers: 2.0-8.0% Performed By: #### A LLBG ####[facility]ORATORYCLIA [id number] [address] [place] Chloride [Moles/Vol] 113 mmol/L High 97-105 [facility] Comment on above: Order Comment: Speci men Type: ARTERIAL BLOOD SPECIMENOrdering Facility: [facility] Address: [address] [place] [address] Performed By: #### A LLBG ####[facility]ATORYCLIA [id number] [address] [place] CO2 (Bld) [Partial pressure] 30 mm Hg Low 36-46 [facility] Comment on above: Order Comment: Speci men Type: ARTERIAL BLOOD SPECIMENOrdering Facility: [facility] Address: [address] [place] [address] Performed By: #### A LLBG ####[facility]ORATORYCLIA [id number] [address] CO2 adjusted to patient's actual temperature (Bld) [Partial pressure] 30 mmHg Low 36-46 [facility] Comment on above: Order Comment: Speci men Type: ARTERIAL BLOOD SPECIMENOrdering Facility: [facility] Address: [address] [place] [address] Performed By: #### A LLBG ####[facility]ATORYCLIA [id number] [address] [place] FIO2 35 % Normal [facility] Comment on above: Order Comment: Speci men Type: ARTERIAL BLOOD SPECIMENOrdering Facility: [facility] Address: [address] [place], [place] [address] Performed By: #### A LLBG ####[facility]ATORYCLIA [id number] [address] [place] Glucose [Mass/Vol] 132 mg/dL High 60-105 [facility] Comment on above: Order Comment: Speci men Type: ARTERIAL BLOOD SPECIMENOrdering Facility: [facility] Address: [address] [place] [address] Performed By: #### A LLBG ####[facility]ORATORYCLIA [id number] [place] [address] [place] HCO3 (Bld) [Moles/Vol] 17 mmol/L Low 22-26 [facility] Comment on above: Order Comment: Speci men Type: ARTERIAL BLOOD SPECIMENOrdering Facility: [facility] Address: [address] [place] [address] Performed By: #### A LLBG ####[facility]ORATORYCLIA [id number] [address] [place] Hematocrit (Bld) [Volume fraction] 41.8 % Normal 36.0-46.0 [facility] Comment on above: Order Comment: Speci men Type: ARTERIAL BLOOD SPECIMENOrdering Facility: [facility] Address: [address] [place] [address] Performed By: #### A LLBG ####[facility]ATORYCLIA [id number] [address] [place] Hemoglobin (Bld) [Mass/Vol] 13.6 g/dL Normal 11.5-15.5 [facility] Comment on above: Order Comment: Speci men Type: ARTERIAL BLOOD SPECIMENOrdering Facility: [facility] Address: [address] [place] [address] Performed By: #### A LLBG ####[facility]ORATORYCLIA [id number] [address] [place] INHALED TIDAL VOLUME (ML) 450 Normal [facility] Comment on above: Order Comment: Speci men Type: ARTERIAL BLOOD SPECIMENOrdering Facility: [facility] Address: [address] [place] [address] Performed By: #### A LLBG ####[facility]ORYCLIA [id number] [address] [place] Lactate [Moles/Vol] 2.3 mmol/L High 0.5-2.2 [facility] Comment on above: Order Comment: Speci men Type: ARTERIAL BLOOD SPECIMENOrdering Facility: [facility] Address: [address] [place] [address] Performed By: #### A LLBG ####[facility]ATORYCLIA [id number] [address] [place] Methemoglobin (Bld) [Mass fraction] 0.7 % Normal 0.0-1.5 [facility] Comment on above: Order Comment: Speci men Type: ARTERIAL BLOOD SPECIMENOrdering Facility: [facility] Address: [address] [place] [address] Performed By: #### A LLBG ####[facility]ORATORYCLIA [id number] [address] [place] O2 THERAPY VENT=Ventilator Normal [facility] Comment on above: Order Comment: Speci men Type: ARTERIAL BLOOD SPECIMENOrdering Facility: [facility] Address: [address] [place] [address] Performed By: #### A LLBG ####[facility]ATORYCLIA [id number] [address] [place] Oxygen (Bld) [Partial pressure] 146 mm Hg High 85-95 [facility] Comment on above: Order Comment: Speci men Type: ARTERIAL BLOOD SPECIMENOrdering Facility: [facility] Address: [address] [place] [address] Performed By: #### A LLBG ####[facility]ORYCLIA [id number] [address] [place] Oxygen adjusted to patient's actual temperature (Bld) [Partial pressure] 144 mmHg High 85-95 [facility] Comment on above: Order Comment: Speci men Type: ARTERIAL BLOOD SPECIMENOrdering Facility: [facility] Address: [address] [place] [address] Performed By: #### A LLBG ####[facility]ORYCLIA [id number] [address] Oxyhemoglobin (BldA) [Mass fraction] 98 % Normal 95-98 [facility] Comment on above: Order Comment: Speci men Type: ARTERIAL BLOOD SPECIMENOrdering Facility: [facility] Address: [address] [place] [address] Performed By: #### A LLBG ####[facility] LABORATORYCLIA [id number] [address] [place] PEEP/CPAP 5 cmH2O Normal [facility] Comment on above: Order Comment: Speci men Type: ARTERIAL BLOOD SPECIMENOrdering Facility: [facility] Address: [address] [place] [address] Performed By: #### A LLBG ####[facility]ATORYCLIA [id number] [address] [place] pH (Bld) 7.38 [pH] Normal 7.35-7.45 [facility] Comment on above: Order Comment: Speci men Type: ARTERIAL BLOOD SPECIMENOrdering Facility: [facility] Address: [address] [place] [address] Performed By: #### A LLBG ####[facility]ATORYCLIA [id number] [address] [place] pH adjusted to patient's actual temperature (Bld) 7.38 Normal 7.35-7.45 [facility] Comment on above: Order Comment: Speci men Type: ARTERIAL BLOOD SPECIMENOrdering Facility: [facility] Address: [address] [place] [address] Performed By: #### A LLBG ####[facility]ORYCLIA [id number] [address] [place] PO2 / FIO2 RATIO 417 mmHg Normal >300 [facility] Comment on above: Order Comment: Speci men Type: ARTERIAL BLOOD SPECIMENOrdering Facility: [facility] Address: [address] [place] [address] Performed By: #### A LLBG ####[facility]ORYCLIA [id number] [address] Potassium [Moles/Vol] 3.2 mmol/L Low 3.5-5.0 [facility] Comment on above: Order Comment: Speci men Type: ARTERIAL BLOOD SPECIMENOrdering Facility: [facility] Address: [address] [place] [address] Performed By: #### A LLBG ####[facility]ORATORYCLIA [id number] [address] SET VENTILATOR RESPIRATORY RATE (BPM) 14 BPM Normal [facility] Comment on above: Order Comment: Speci men Type: ARTERIAL BLOOD SPECIMENOrdering Facility: [facility] Address: [address] [place] [address] Performed By: #### A LLBG ####[facility]ATORYCLIA [id number] [address] [place] Sodium [Moles/Vol] 140 mmol/L Normal 136-144 [facility] Comment on above: Order Comment: Speci men Type: ARTERIAL BLOOD SPECIMENOrdering Facility: [facility] Address: [address] [place] [address] Performed By: #### A LLBG ####[facility]ATORYCLIA [id number] [address] Absolute lymphocyte countOrd ered By: Jaclyn Sagastume on 10-06-2024 Lymphocytes Auto (Unsp spec) [#/Vol] 1.27 10*3/uL 0.83-4.51 [facility] Absolute neutrophil countOrd ered By: Jaclyn Sagastume on 10-06-2024 Neutrophils (Bld) [#/Vol] 11.0 10*3/uL High 2.0-7.7 [facility] Amphetamine detection with 1 000 ng/mL as cutoffOrdered By: Kaiden Rausch on 10-06-2024 Amphetamines Screen method >1000 ng/mL Ql (U) Negative < 200 ng/mL [facility] Anion gap in Serum or Plasma Ordered By: Jaclyn Sagastume on 10-06-2024 Anion gap [Moles/Vol] 13 mmol/L 5-15 [facility] Assessment of wrist artery p atency prior to arterial punctureOrdered By: Kaiden Rausch on 10-06-2024 Arterial patency Wrist artery --pre arterial puncture Positive [facility] Automated lymphocyte count a s percentage of total leukocytesOrdered By: Jaclyn Sgaastume on 10-06-2024 Lymphocytes/100 WBC Auto (Unsp spec) 9.8 % Low 19-41 [facility] BUN/creatinine ratioOrdered By: Jaclyn Sagastume on 10-06-2024 Urea nitrogen/Creatinine [Mass ratio] 10.5 mg/mg 10- [facility] Basic Metabolic Profile (BMP )on 10-06-2024 BUN/CRE 10.5 RATIO Normal - [facility] Comment on above: Performed By: #### L 100.0100, L500.2500 ####[facility] [address] [place], [address] Calcium [Mass/Vol] 9.2 mg/dL Normal 7.6-11.0 [facility] Comment on above: Performed By: #### L 100.0100, L500.2500 ####[facility] [address] [place], [address] Chloride [Moles/Vol] 110 mmol/L High 98-108 [facility] Comment on above: Performed By: #### L 100.0100, L500.2500 ####[facility] [address] [place], [address] CO2 [Moles/Vol] 18.0 mmol/L Low 21.0-32.0 [facility] Comment on above: Performed By: #### L 100.0100, L500.2500 ####[facility] [address] [place], [address] Creatinine [Mass/Vol] 0.68 mg/dL Low 0.70-1.20 [facility] Comment on above: Performed By: #### L 100.0100, L500.2500 ####[facility] [address] [place], [address] ECRCL 102.45 ml/min Normal 50-250 [facility] Comment on above: Performed By: #### L 100.0100, L500.2500 ####[facility] [address] [place], [address] GAP 13 Normal 5-15 [facility] Comment on above: Performed By: #### L 100.0100, L500.2500 ####[facility] [address] [place], [address] GFR/1.73 sq M.predicted among non-blacks MDRD (S/P/Bld) [Vol rate/Area] 116 mL/min/{1.73_m2} Normal >60 [facility] Comment on above: Result Comment: mL/m in/1.73m2 CKD-EPI Creatinine Equation (2020) Performed By: #### L 100.0100, L500.2500 ####[facility] [address] [place], [address] Glucose [Mass/Vol] 127 mg/dL High 70-99 [facility] Comment on above: Performed By: #### L 100.0100, L500.2500 ####[facility] [address] [place], [address] Potassium [Moles/Vol] 3.4 mmol/L Normal 3.3-5.1 [facility] Comment on above: Performed By: #### L 100.0100, L500.2500 ####[facility] [address] [place], [address] Sodium [Moles/Vol] 141 mmol/L Normal 133-145 [facility] Comment on above: Performed By: #### L 100.0100, L500.2500 ####[facility] [address] [place], [address] Urea nitrogen [Mass/Vol] 7 mg/dL Normal 4-19 [facility] Comment on above: Performed By: #### L 100.0100, L500.2500 ####[facility] [address] [place], [address] Basophil percentageOrdered B y: Jaclyn Sagastume on 10-06-2024 Basophils/100 WBC (Bld) 0.3 % 0-1 [facility] Bedside Glucoseon 10-06-2024 FINGERSTICK GLU 155 mg/dL High 74-106 [facility] Comment on above: Result Comment: RUBENS ACRTER OF PATIENT CARE PER NURSING PROTOCOL Performed By: #### L 501.080 ####[facility] [address] [place], [address] Bilirubin Test strip Ql (U)O rdered By: Jaclyn Sagastume on 10-06-2024 Bilirubin Ql (U) Negative Negative [facility] Blood Gases by CPSon 025 MALIK TEST Positive Normal [facility] Comment on above: Performed By: #### L 9000.0800 ####[facility] [address] [place], [address] Base excess Calc (Bld) [Moles/Vol] -8 mmol/L Low -2 to +2 [facility] Comment on above: Performed By: #### L 9000.0800 ####[facility] [address] [place], [address] Blood Gas Type ART Normal [facility] Comment on above: Performed By: #### L 9000.0800 ####[facility] [address] [place], [address] CO2 [Moles/Vol] 20 mmol/L Normal [facility] Comment on above: Performed By: #### L 9000.0800 ####[facility] [address] [place], [address] FI02 40.0 Normal [facility] Comment on above: Performed By: #### L 8999.799 ####[facility] [address] [place], [address] HCO3 (Bld) [Moles/Vol] 18.4 mmol/L Low 22-26 [facility] Comment on above: Performed By: #### L 8999.08 ####[facility] [address] [place], [address] Mode AC Normal [facility] Comment on above: Performed By: #### L 8999.08 ####[facility] [address] [place], [address] O2 Delivery Dev Adult Vent Normal [facility] Comment on above: Performed By: #### L 8999.08 ####[facility] [address] [place], [address] pCO2 35.4 mmHg Normal 35-45 [facility] Comment on above: Performed By: #### L 8999.08 ####[facility] [address] [place], [address] PEEP 5 Normal [facility] Comment on above: Performed By: #### L 8999.08 ####[facility] [address] [place], [address] pH (Bld) 7.32 [pH] Low 7.35-7.45 [facility] Comment on above: Performed By: #### L 8999.08 ####[facility] [address] [place], [address] PO2 107 mmHG High 75-100 [facility] Comment on above: Performed By: #### L 8999.0800 ####[facility] [address] [place], [address] RR 14 Normal [facility] Comment on above: Performed By: #### L 9000.0800 ####[facility] [address] [place], [address] SITE R Radial Normal [facility] Comment on above: Performed By: #### L 9000.0800 ####[facility] [address] [place], [place], [address] SO2 98 Normal 95-99 [facility] Comment on above: Performed By: #### L 9000.0800 ####[facility] [address], [address] Vt 450.0 mL Normal [facility] Comment on above: Performed By: #### L 9000.0800 ####[facility] [address] [place], [address] Blood base excess determinat ionOrdered By: Kaiden Rausch on 10-06-2024 Base excess Calc (BldV) [Moles/Vol] -8 mmol/L Low -2-2 [facility] Blood bicarbonate measuremen tOrdered By: Kaiden Rausch on 10-06-2024 HCO3 (Bld) [Moles/Vol] 18.4 mmol/L Low 22-26 [facility] Brain/Head without Contrasto n 10-06-2024 Brain/Head without Contrast Normal [facility] CBC W Auto Differential pane l (Bld)on 10-06-2024 Basophils (Bld) [#/Vol] 10*3/uL Normal <0.11 [facility] Comment on above: Order Comment: Speci men Type: BLOOD SPECIMENOrdering Facility: [facility] Address: [address] [place] [address] Performed By: #### 5 7021-8 ####[facility] LABORATORYCLIA [id number] [place] [address] [place] Basophils/100 WBC (Bld) 0.1 % Normal [facility] Comment on above: Order Comment: Speci men Type: BLOOD SPECIMENOrdering Facility: [facility] Address: [address] [place] [address] Performed By: #### 5 7021-8 ####[facility] LABORATORYCLIA [id number] [address] Differential cell count method Nom (Bld) Auto Normal [facility] Comment on above: Order Comment: Speci men Type: BLOOD SPECIMENOrdering Facility: [facility] Address: [address] [place] [address] Performed By: #### 5 7021-8 ####[facility]ORATORYCLIA [id number] [address] Eosinophils (Bld) [#/Vol] 10*3/uL Normal <0.46 [facility] Comment on above: Order Comment: Speci men Type: BLOOD SPECIMENOrdering Facility: [facility] Address: [address] [place] [address] Performed By: #### 5 7021-8 ####[facility]ORATORYCLIA [id number] [address] Eosinophils/100 WBC (Bld) 0.0 % Normal [facility] Comment on above: Order Comment: Speci men Type: BLOOD SPECIMENOrdering Facility: [facility] Address: [address] [place] [address] Performed By: #### 5 7021-8 ####[facility]ORATORYCLIA [id number] [address] Erythrocyte distribution width (RBC) [Ratio] 12.8 % Normal 11.5-15.0 [facility] Comment on above: Order Comment: Speci men Type: BLOOD SPECIMENOrdering Facility: [facility] Address: [address] [place] [address] Performed By: #### 5 7021-8 ####[facility]ORATORYCLIA [id number] [address] Hematocrit (Bld) [Volume fraction] 40.7 % Normal 36.0-46.0 [facility] Comment on above: Order Comment: Speci men Type: BLOOD SPECIMENOrdering Facility: [facility] Address: [address] [place] [address] Performed By: #### 5 7021-8 ####[facility] LABORATORYCLIA [id number] [address] [place] Hemoglobin (Bld) [Mass/Vol] 13.1 g/dL Normal 11.5-15.5 [facility] Comment on above: Order Comment: Speci men Type: BLOOD SPECIMENOrdering Facility: [facility] Address: [address] [place] [address] Performed By: #### 5 7021-8 ####[facility]ORATORYCLIA [id number] [address] [place] Immature granulocytes (Bld) [#/Vol] 0.08 10*3/uL Normal <0.10 [facility] Comment on above: Order Comment: Speci men Type: BLOOD SPECIMENOrdering Facility: [facility] Address: [address] [place] [address] Performed By: #### 5 7021-8 ####[facility]ORYCLIA [id number] [address] [place] Immature granulocytes/100 WBC (Bld) 0.5 % Normal [facility] Comment on above: Order Comment: Speci men Type: BLOOD SPECIMENOrdering Facility: [facility] Address: [address] [place] [address] Performed By: #### 5 7021-8 ####[facility]ORYCLIA [id number] [place] [address] [place] Lymphocytes (Bld) [#/Vol] 0.55 10*3/uL Low 1.00-4.00 [facility] Comment on above: Order Comment: Speci men Type: BLOOD SPECIMENOrdering Facility: [facility] Address: [address] [place] [address] Performed By: #### 5 7021-8 ####[facility]ORYCLIA [id number] [address] Lymphocytes/100 WBC (Bld) 3.3 % Normal [facility] Comment on above: Order Comment: Speci men Type: BLOOD SPECIMENOrdering Facility: [facility] Address: [address] [place] [address] Performed By: #### 5 7021-8 ####[facility]ORATORYCLIA [id number] [address] MCH (RBC) [Entitic mass] 29.4 pg Normal 26.0-34.0 [facility] Comment on above: Order Comment: Speci men Type: BLOOD SPECIMENOrdering Facility: [facility] Address: [address] [place] [address] Performed By: #### 5 7021-8 ####[facility]ORATORYCLIA [id number] [address] MCHC (RBC) [Mass/Vol] 32.2 g/dL Normal 30.5-36.0 [facility] Comment on above: Order Comment: Speci men Type: BLOOD SPECIMENOrdering Facility: [facility] Address: [address] [place] [address] Performed By: #### 5 7021-8 ####[facility]ORATORYCLIA [id number] [address] MCV (RBC) [Entitic vol] 91.3 fL Normal 80.0-100.0 [facility] Comment on above: Order Comment: Speci men Type: BLOOD SPECIMENOrdering Facility: [facility] Address: [address] [place] [address] Performed By: #### 5 7021-8 ####[facility]ORATORYCLIA [id number] [address] Monocytes (Bld) [#/Vol] 0.41 10*3/uL Normal <0.87 [facility] Comment on above: Order Comment: Speci men Type: BLOOD SPECIMENOrdering Facility: [facility] Address: [address] [place] [address] Performed By: #### 5 7021-8 ####[facility]ATORYCLIA [id number] [address] [place] Monocytes/100 WBC (Bld) 2.5 % Normal [facility] Comment on above: Order Comment: Speci men Type: BLOOD SPECIMENOrdering Facility: [facility] Address: [address] [place] [address] Performed By: #### 5 7021-8 ####[facility]ORATORYCLIA [id number] [place] [address] [place] Neutrophils (Bld) [#/Vol] 15.41 10*3/uL High 1.45-7.50 [facility] Comment on above: Order Comment: Speci men Type: BLOOD SPECIMENOrdering Facility: [facility] Address: [address] [place] [address] Performed By: #### 5 7021-8 ####[facility]ORATORYCLIA [id number] [address] [place] Neutrophils/100 WBC (Bld) 93.6 % Normal [facility] Comment on above: Order Comment: Speci men Type: BLOOD SPECIMENOrdering Facility: [facility] Address: [address] [place] [address] Performed By: #### 5 7021-8 ####[facility]ORATORYCLIA [id number] [place] [address] [place] Nucleated RBC (Bld) [#/Vol] 10*3/uL Normal <0.01 [facility] Comment on above: Order Comment: Speci men Type: BLOOD SPECIMENOrdering Facility: [facility] Address: [address] [place] [address] Performed By: #### 5 7021-8 ####[facility]ATORYCLIA [id number] [place] [address] [place] Nucleated RBC/100 WBC (Bld) [Ratio] 0.0 /100 WBC Normal [facility] Comment on above: Order Comment: Speci men Type: BLOOD SPECIMENOrdering Facility: [facility] Address: [address] [place] [address] Performed By: #### 5 7021-8 ####[facility]ORATORYCLIA [id number] [address] [place] Platelet mean volume (Bld) [Entitic vol] 9.0 fL Normal 9.0-12.7 [facility] Comment on above: Order Comment: Speci men Type: BLOOD SPECIMENOrdering Facility: [facility] Address: [address] [place] [address] Performed By: #### 5 7021-8 ####[facility]ORATORYCLIA [id number] [address] [place] Platelets (Bld) [#/Vol] 225 10*3/uL Normal 150-400 [facility] Comment on above: Order Comment: Speci men Type: BLOOD SPECIMENOrdering Facility: [facility] Address: [address] [place] [address] Performed By: #### 5 7021-8 ####[facility]ORATORYCLIA [id number] [address] [place] RBC (Bld) [#/Vol] 4.46 10*6/uL Normal 3.90-5.20 [facility] Comment on above: Order Comment: Speci men Type: BLOOD SPECIMENOrdering Facility: [facility] Address: [address] [place] [address] Performed By: #### 5 7021-8 ####[facility]ORATORYCLIA [id number] [address] [place] WBC (Bld) [#/Vol] 16.47 10*3/uL High 3.70-11.00 [facility] Comment on above: Order Comment: Speci men Type: BLOOD SPECIMENOrdering Facility: [facility] Address: [address] [place] [address] Performed By: #### 5 7021-8 ####[facility]ORATORYCLIA [id number] [address] [place] CBC W/Diff, Automatedon 06-0 -2024 Absolute Lymph 1.27 X10 3/uL Normal 0.83-4.51 [facility] Comment on above: Performed By: #### L 100.0100, L500.2500 ####[facility] [address] [place], [address] Absolute Neut 11.0 X10 3/uL High 2.0-7.7 [facility] Comment on above: Performed By: #### L 100.0100, L500.2500 ####[facility] [address] [place], [address] Basophils/100 WBC (Bld) 0.3 % Normal 0-1 [facility] Comment on above: Performed By: #### L 100.0100, L500.2500 ####[facility] [address] [place], [address] Eosinophils/100 WBC (Bld) 0.4 % Normal 0-5 [facility] Comment on above: Performed By: #### L 100.0100, L500.2500 ####[facility] [address] [place], [address] Erythrocyte distribution width (RBC) [Ratio] 13.1 % Normal 11.6-14.6 [facility] Comment on above: Performed By: #### L 100.0100, L500.2500 ####[facility] [address] [place], [address] Hematocrit (Bld) [Volume fraction] 41.3 % Normal 37-47 [facility] Comment on above: Performed By: #### L 100.0100, L500.2500 ####[facility] [address] [place], [address] Hemoglobin (Bld) [Mass/Vol] 14.0 g/dL Normal 12.0-15.0 [facility] Comment on above: Performed By: #### L 100.0100, L500.2500 ####[facility] [address] [place], [address] IG% 0.400 Normal 0.0-0.9 [facility] Comment on above: Result Comment: IG% - Immature Granulocytes (promyelocytes, myelocytes andmetamyelocytes) > 1% indicates that a LEFT SHIFT is Present. Performed By: #### L 100.0100, L500.2500 ####[facility] [address] [place], [address] Lymphocytes/100 WBC (Bld) 9.8 % Low 19-41 [facility] Comment on above: Performed By: #### L 100.0100, L500.2500 ####[facility] [address] [place], [address] MCH (RBC) [Entitic mass] 29.9 pg Normal 27.0-32.0 [facility] Comment on above: Performed By: #### L 100.0100, L500.2500 ####[facility] [address] [place], [address] MCHC (RBC) [Mass/Vol] 33.9 g/dL Normal 32-36 [facility] Comment on above: Performed By: #### L 100.0100, L500.2500 ####[facility] [address] [place], [address] MCV (RBC) [Entitic vol] 88.1 fL Normal 81-99 [facility] Comment on above: Performed By: #### L 100.0100, L500.2500 ####[facility] [address] [place], [address] Monocytes/100 WBC (Bld) 4.2 % Normal 0-10 [facility] Comment on above: Performed By: #### L 100.0100, L500.2500 ####[facility] [address] [place], [address] Neutrophils/100 WBC (Bld) 84.9 % High 47-70 [facility] Comment on above: Performed By: #### L 100.0100, L500.2500 ####[facility] [address] [place], [address] Nucleated RBC (Bld) [#/Vol] 0 10*3/uL Normal 0-5 [facility] Comment on above: Performed By: #### L 100.0100, L500.2500 ####[facility] [address] [place], [address] Platelet mean volume (Bld) [Entitic vol] 9.5 fL Normal 6.2-12.0 [facility] Comment on above: Performed By: #### L 100.0100, L500.2500 ####[facility] [address] [place], [address] Platelets (Bld) [#/Vol] 247 10*3/uL Normal 150-450 [facility] Comment on above: Performed By: #### L 100.0100, L500.2500 ####[facility] [address] [place], [address] RBC (Bld) [#/Vol] 4.69 10*6/uL Normal 4.2-5.4 [facility] Comment on above: Performed By: #### L 100.0100, L500.2500 ####[facility] [address] [place], [address] RDW SD 42.1 fl Normal 35.1-43.9 [facility] Comment on above: Performed By: #### L 100.0100, L500.2500 ####[facility] [address] [place], [address] WBC (Bld) [#/Vol] 12.9 10*3/uL High 4.4-11.0 [facility] Comment on above: Performed By: #### L 100.0100, L500.2500 ####[facility] [address] [place], [address] [facility] Critical Care Transp ort (CCT) -------- DOUG FLANAGAN ([id number]) 1990 F Date Time Provider Department 10/06/24 RIVKA RICHARDS During your visit today, we recorded the following information about you: Fritz Sung Medic 10/07/2024 3:30 AM Signed CRITICAL CARE TRANSPORT MEDICAL CONTROL CONSULT NOTE Patient Name: Doug Flanagan Service Date: October 06, 2024 Referring Facility: [facility] Accepting Facility: REASON FOR TRANSPORT: seizures REASON FOR CONSULT: sedation CCT MEDICAL CONTROL CONSULT SUMMARY: History, physical exam findings, and available background patient information from [facility] Transport Nurse were reviewed at the time of consult. Pertinent additional information was reviewed as follows: Epic Records In brief, Doug Flanagan is a 34 year old female with a history, known at time of consult, significant for depression, seizures, myasthenia gravis, TBI who presented to [facility] for evaluation of seizure activity. Per the ED patient self administered valium prior to seizure activity. Upon arrival to the ED patient was post ictal and intubated for airway protection. Patient to be transferred to [facility] for further care and neurological evaluation. PLAN: Multiple factors considered including: patient history/condition/trajec tory/stability, referring and receiving destinations, duration of transport time, medications and therapies available during transport, patient safety, as well as crew capabilities. Orders given for: Propofol titration Plan of care and orders confirmed and read back via telephone with [facility] Transport support team member, Júnior Sung, [employer] SIGNATURE: Rivka Richards APRN.SUPERVISOR TYPESETTING Acute Care Nurse Practitioner Critical Care Transport [...] Generalized convulsive (more content not included)... Normal [facility] CPK Total, Creatine Kinaseon 10-06-2024 CPK TOTAL 46 U/L Normal 24-195 [facility] Comment on above: Order Comment: Comme nts: DC when propofol is d/c'd Performed By: #### L 501.3620, L501.5000 ####[facility] [address] [place], [address] Calcium.ionized [Moles/Vol]o n 10-06-2024 Calcium.ionized (BldV) [Mass/Vol] 1.18 mmol/L Normal 1.08-1.30 [facility] Comment on above: Order Comment: Speci men Type: BLOOD SPECIMENOrdering Facility: [facility] Address: [address] [place], [place] [address] Performed By: #### 1 995-0 ####[facility]ORATORYCLIA [id number] [place] [address] [place] Calcium.ionized adjusted to pH 7.4 (Bld) [Moles/Vol] 1.13 mmol/L Normal 1.08-1.30 [facility] Comment on above: Order Comment: Speci men Type: BLOOD SPECIMENOrdering Facility: [facility] Address: [address] [place] [address] Performed By: #### 1 995-0 ####[facility]ORATORYCLIA [id number] [place] [address] [place] Carbon dioxide, total [Moles /volume] in Central venous bloodOrdered By: Jaclyn Sagastume on 10-06-2024 CO2 [Moles/Vol] 18.0 mmol/L Low 21.0-32.0 [facility] Chest 1 View (Portable)on Chest 1 View (Portable) Normal [facility] Chloride assayOrdered By: Roselia Sagastume on 10-06-2024 Chloride [Moles/Vol] 110 mmol/L High 98-108 [facility] Comprehensive metabolic 2000 panelon 10-06-2024 Albumin [Mass/Vol] 4.0 g/dL Normal 3.9-4.9 [facility] Comment on above: Order Comment: Speci men Type: BLOOD SPECIMENOrdering Facility: [facility] Address: [address] [place], [place] [address] Performed By: #### 1 9123-9, 46788-2, 2777-1 ####[facility]ORATORYCLIA [id number] [place] [address] [place] ALP [Catalytic activity/Vol] 88 U/L Normal 34-123 [facility] Comment on above: Order Comment: Speci men Type: BLOOD SPECIMENOrdering Facility: [facility] Address: [address] [place] [address] Performed By: #### 1 9123-9, 28773-5, 2777- ####[facility]ORATORYCLIA [id number] [place] [address] [place] ALT With P-5'-P [Catalytic activity/Vol] 16 U/L Normal 7-38 [facility] Comment on above: Order Comment: Speci men Type: BLOOD SPECIMENOrdering Facility: [facility] Address: [address] [place] [address] Performed By: #### 1 9123-9, 70645-4, 277- ####[facility]ORATORYCLIA [id number] [address] STATES OF [facility] Anion gap [Moles/Vol] 15 mmol/L Normal 8-15 [facility] Comment on above: Order Comment: Speci men Type: BLOOD SPECIMENOrdering Facility: [facility] Address: [address] [place] [address] Performed By: #### 1 9123-9, 18121-0, 277- ####[facility]ORATORYCLIA [id number] [address] [place] AST With P-5'-P [Catalytic activity/Vol] 18 U/L Normal 13-35 [facility] Comment on above: Order Comment: Speci men Type: BLOOD SPECIMENOrdering Facility: [facility] Address: [address] [place] [address] Performed By: #### 1 9123-9, 31236-5, 2777- ####[facility]ATORYCLIA [id number] [place] [address] [place] Bilirubin [Mass/Vol] 0.3 mg/dL Normal 0.2-1.3 [facility] Comment on above: Order Comment: Speci men Type: BLOOD SPECIMENOrdering Facility: [facility] Address: [address] [place] [address] Performed By: #### 1 9123-9, 20589-7, 277- ####[facility]ORATORYCLIA [id number] [place] [address] [place] Calcium [Mass/Vol] 8.6 mg/dL Normal 8.5-10.2 [facility] Comment on above: Order Comment: Speci men Type: BLOOD SPECIMENOrdering Facility: [facility] Address: [facility] [place] [address] Performed By: #### 1 9123-9, 07121-7, 2776- ####[facility]ATORYCLIA [id number] [place] [address] [place] Chloride [Moles/Vol] 107 mmol/L Normal 98-107 [facility] Comment on above: Order Comment: Speci men Type: BLOOD SPECIMENOrdering Facility: [facility] Address: [address] [place] [address] Performed By: #### 1 9123-9, 89340-7, 2776- ####[facility]ORATORYCLIA [id number] [place] [address] [place] CO2 [Moles/Vol] 17 mmol/L Low 22-30 [facility] Comment on above: Order Comment: Speci men Type: BLOOD SPECIMENOrdering Facility: [facility] Address: [address] [place] [address] Performed By: #### 1 9123-9, 92026-2, 2776-05 ####[facility]ORATORYCLIA [id number] [place] [address] [place] Creatinine [Mass/Vol] 0.59 mg/dL Normal 0.58-0.96 [facility] Comment on above: Order Comment: Speci men Type: BLOOD SPECIMENOrdering Facility: [facility] Address: [address] [place] [address] Performed By: #### 1 9123-9, 40438-8, 277- ####[facility]ORATORYCLIA [id number] [place] [address] [place] Creatinine and Glomerular filtration rate.predicted panel (S/P/Bld) 120 mL/min/1.73m??? Normal >=60 [facility] Comment on above: Order Comment: Juan Jose pickens Type: BLOOD SPECIMENOrdering Facility: [facility] Address: [address] [place] [address] Result Comment: Mary mated Glomerular Filtration Rate [...] actual GFR. Performed By: #### 1 9123-9, 68909-1, 2777- ####[facility] LABORATORYCLIA [id number] [place] [address] [place] Glucose [Mass/Vol] 128 mg/dL High 74-99 [facility] Comment on above: Order Comment: Juan Jose pickens Type: BLOOD SPECIMENOrdering Facility: [facility] Address: [address] [place] [address] Result Comment: The [place] [employer] (ADA) provides guidance for cutoff [...] Standards of Medical Care in Diabetes 2016, [place] [employer]. Diabetes Care. 2016.39(Suppl 1). Performed By: #### 1 9123-9, 50566-1, 2777- ####[facility] LABORATORYCLIA [id number] [place] [id number] [place] Potassium [Moles/Vol] 3.5 mmol/L Low 3.7-5.1 [facility] Comment on above: Order Comment: Speci men Type: BLOOD SPECIMENOrdering Facility: [facility] Address: [address] [place] [address] Performed By: #### 1 9123-9, 60583-0, 2776-05 ####[facility] LABORATORYCLIA [id number] [place] [address] [place] Protein [Mass/Vol] 6.4 g/dL Normal 6.3-8.0 [facility] Comment on above: Order Comment: Speci men Type: BLOOD SPECIMENOrdering Facility: [facility] Address: [address] [place] [address] Performed By: #### 1 9123-9, 77164-4, 2776-05 ####[facility] LABORATORYCLIA [id number] [address] [place] Sodium [Moles/Vol] 139 mmol/L Normal 136-144 [facility] Comment on above: Order Comment: Speci men Type: BLOOD SPECIMENOrdering Facility: [facility] Address: [address] [place] [address] Performed By: #### 1 9123-9, , 2776-05 ####[facility] LABORATORYCLIA [id number] [address] [place] Urea nitrogen [Mass/Vol] 5 mg/dL Low 7-21 [facility] Comment on above: Order Comment: Speci men Type: BLOOD SPECIMENOrdering Facility: [facility] Address: [address] [place] [address] Performed By: #### 1 9123-9, 86608-7, 27710-31 ####[facility] LABORATORYCLIA [id number] [place] [address] [place] Emergency Department Summary on 10-06-2024 Emergency Department Summary Normal [facility] Eosinophil percentageOrdered By: Jaclyn Sagastume on 10-06-2024 Eosinophils/100 WBC (Bld) 0.4 % 0-5 [facility] Erythrocyte distribution wid th ratioOrdered By: Jaclyn Sagastume on 10-06-2024 Erythrocyte distribution width (RBC) [Ratio] 13.1 % 11.6-14.6 [facility] Erythrocyte distribution wid th standard deviationOrdered By: Jaclyn Sagastume on 10-06-2024 Erythrocyte distribution width (RBC) [Ratio] 42.1 fl 35.1-43.9 [facility] Free T3on 10-06-2024 Free T3 [Mass/Vol] 3.2 pg/mL Normal 2.18-3.98 [facility] Comment on above: Performed By: #### L 501.13988, L505.5000, L501.9520, L506.0400 ####[facility] [address] [place], [place], [address] Free E1Leosmic By: Kaiden ross on 10-06-2024 Free T3 [Mass/Vol] 3.2 pg/mL 2.18-3.98 [facility] Glomerular filtration rate ( GFR) estimation/1.73 sq m using serum, plasma, or whole bOrdered By: Jaclyn Sagastume on 10-06-2024 GFR/1.73 sq M.predicted among non-blacks MDRD (S/P/Bld) [Vol rate/Area] 116 mL/min/{1.73_m2} >60 [facility] Comment on above: mL/min/1.73m2 CKD-EP I Creatinine Equation (2020) [facility] deOrdered By: Kaiden Rausch on 10-06-2024 Glucose [Mass/Vol] 155 mg/dL High 74-106 [facility] Comment on above: MANAGEMENT OF PATIEN T CARE PER NURSING PROTOCOL Hematocrit Auto (Bld) [Volum e fraction]Ordered By: Jaclyn Sagastume on 10-06-2024 Hematocrit (Bld) [Volume fraction] 41.3 % 37-47 [facility] Hemoglobin measurementOrdere d By: Jaclyn Sagastume on 10-06-2024 Hemoglobin (Bld) [Mass/Vol] 14.0 g/dL 12.0-15.0 [facility] Immature granulocytes/100 WB C Auto (Bld)Ordered By: Jaclyn Sagastume on 10-06-2024 Immature granulocytes/100 WBC (Bld) 0.400 % 0.0-0.9 [facility] Comment on above: IG% - Immature Granu locytes (promyelocytes, myelocytes and metamyelocytes) > 1% indicates that a LEFT SHIFT is Present. Ketones Test strip Ql (U)Ord ered By: Jaclyn Sagastume on 10-06-2024 Ketones Ql (U) Negative Negative [facility] Lactic Acidon 10-06-2024 Lactate [Moles/Vol] 1.9 mmol/L Normal 0.0-2.0 [facility] Comment on above: Order Comment: Y Performed By: #### L 503.6005 ####[facility] [address] [place], [place], [id number] Lactic acid measurementOrder ed By: Jaclyn Sagastume on 10-06-2024 Lactate [Moles/Vol] 1.9 mmol/L 0.0-2.0 [facility] MCV (mean corpuscular volume ) determinationOrdered By: Jaclyn Sagastume on 10-06-2024 MCV (RBC) [Entitic vol] 88.1 fL 81-99 [facility] Magnesium SerPl-mCncon 10-06 Magnesium [Mass/Vol] 1.7 mg/dL Normal 1.7-2.3 [facility] Comment on above: Order Comment: Speci men Type: BLOOD SPECIMENOrdering Facility: [facility] Address: [facility] [place] [address] Performed By: #### 1 9123-9, 86251-7, 2777-1 ####[facility]ORATORYCLIA [id number] [place] [address] [place] Mean corpuscular hemoglobin (MCH) determinationOrdered By: Jaclyn Sagastume on 10-06-2024 MCH (RBC) [Entitic mass] 29.9 pg 27.0-32.0 [facility] Mean corpuscular hemoglobin concentration (MCHC) determinationOrdered By: Jaclyn Sagastume on 10-06-2024 MCHC (RBC) [Mass/Vol] 33.9 g/dL 32-36 [facility] Mean platelet volume determi nationOrdered By: Jaclyn Sagastume on 10-06-2024 Platelet mean volume (Bld) [Entitic vol] 9.5 fL 6.2-12.0 [facility] Measurement, pHOrdered By: Zulma Rausch on 10-06-2024 pH (Unsp spec) 7.32 [pH] Low 7.35-7.45 [facility] Microscopic analysis of urin e for red blood cells (RBC)Ordered By: Jaclyn Sagastume on 10-06-2024 Microscopic analysis of urine for red blood cells (RBC) 0 SEEN /hpf 0-5 [facility] Monocyte percentageOrdered B y: Jaclyn Sagastume on 10-06-2024 Monocytes/100 WBC (Bld) 4.2 % 0-10 [facility] Mucus LM Ql (Urine sed)Order ed By: Jaclyn Sagastume on 10-06-2024 Mucus Ql (Urine sed) 0 SEEN /hpf [facility] Neutrophil percentageOrdered By: Jaclyn Sagastume on 10-06-2024 Neutrophils/100 WBC (Bld) 84.9 % High 47-70 [facility] Nitrite Test strip Ql (U)Ord ered By: Jaclyn Sagastume on 10-06-2024 Nitrite Ql (U) Negative Negative [facility] No Panel InformationOrdered By: Kaiden Rausch on 10-06-2024 Bedside Blood Gas PEEP 5 [facility] Blood Gas Respiration Rate 14 [facility] Blood Gas Sample Site R Radial [facility] Blood Gas Specimen Type ART [facility] Blood Gas Tidal Volume 450.0 mL [facility] Blood Gas Vent Mode [facility] O[facility] Delivery Device Adult Vent [facility] Urine Buprenorphine Qualitative Negative < 200 ng/mL [facility] Urine Oxycodone Screen Negative < 100 ng/mL [facility] Nucleated red blood cell per centageOrdered By: Jaclyn Sagastume on 10-06-2024 Nucleated RBC/100 WBC (Bld) [Ratio] 0 % 0-5 [facility] PT panel Coag (PPP)on 2024 INR Coag (PPP) [Relative time] 1.1 {INR} Normal 0.9-1.3 [facility] Comment on above: Order Comment: Juan Jose pickens Type: BLOOD SPECIMENOrdering Facility: [facility] Address: [address] [place] [address] Result Comment: Shantell min K Antagonist (VKA) Therapeutic Range: INR 2 to 3 (Target INR of 2.5) Note: For patients treated with VKA drugs, such as warfarin, the [employer] [employer] 2012 Guideline recommends [...] Chest 2012, 141:7S-47S Lucian RA, et al. [facility] 2017, 70: 252-289 Performed By: #### 3 4528-0, 22399-8 ####[facility]ORATORYCLIA [id number] [place] [address] [place] PT Coag (PPP) [Time] 11.5 s Normal 9.7-13.0 [facility] Comment on above: Order Comment: Juan Jose pickens Type: BLOOD SPECIMENOrdering Facility: [facility] Address: [address] [place] [address] Performed By: #### 3 4528-0, 71450-8 ####[facility]ATORYCLIA [id number] [place] [id number] [place] Phosphate SerPl-mCncon 10-06 Phosphate [Mass/Vol] 2.4 mg/dL Low 2.7-4.8 [facility] Comment on above: Order Comment: Juan Jose pickens Type: BLOOD SPECIMENOrdering Facility: [facility] Address: [address] [place] [address] Performed By: #### 1 9123-9, 97594-9, 2777-1 ####[facility]ORATORYCLIA [id number] [place] [id number] [place] Platelet countOrdered By: Roselia dimasttparvez Sagastume on 10-06-2024 Platelets (Bld) [#/Vol] 247 10*3/uL 150-450 [facility] Potassium measurement (mass/ volume)Ordered By: Jaclyn Sagastume on 10-06-2024 Potassium (Unsp spec) [Mass/Vol] 3.4 mmol/L 3.3-5.1 [facility] ,Urineon 10-06-2024 Beta HCG ( test) Ql (U) Negative Normal [facility] Comment on above: Result Comment: Very dilute urine specimens, as indicated by a low specificgravity, may not contain employment representative levels of hCG.If is still suspected, a first morning urinespecimen should be collected 48 hours later and tested. Performed By: #### L 400.0001, L400.7600 ####[facility] [address] [place], [place], [id number] Protein Test strip Ql (U)Ord ered By: Jaclyn Sagastume on 10-06-2024 Protein Ql (U) Negative Negative [facility] Quantitative urine opiates m easurementOrdered By: Kaiden Rausch on 10-06-2024 Opiates Ql (U) Negative < 300 ng/mL [facility] RBC Auto (Bld) [#/Vol]Ordere d By: Jaclyn Sagastume on 10-06-2024 RBC (Bld) [#/Vol] 4.69 10*6/uL 4.2-5.4 [facility] STAPHYLOCOCCUS AUREUS AND MR SA SCREEN, PCR, NASALon 10-06-2024 S. aureus and MRSA panel CHRISTIANO+probe (Nose) Not detected Normal Not Detected [facility] Comment on above: Order Comment: Speci men Type: SWABOrdering Facility: [facility] Address: [address] [place] [address] Performed By: #### S APCR ####[facility]ORATORYCLIA [id number] [place] [id number] [place] Screening urine fentanyl karma surementOrdered By: Kaiden Rausch on 10-06-2024 fentaNYL Screen Ql (U) Negative [facility] Serum creatinine measurement (mass/volume)Ordered By: Jaclyn Sagastume on 10-06-2024 Creatinine [Mass/Vol] 0.68 mg/dL Low 0.70-1.20 [facility] Serum glucose measurement (m ass/volume)Ordered By: Jaclyn Sagastume on 10-06-2024 Glucose [Mass/Vol] 127 mg/dL High 70-99 [facility] Serum or plasma calcium traci urement (mass/volume)Ordered By: Jaclyn Sagastume on 10-06-2024 Calcium [Mass/Vol] 9.2 mg/dL 7.6-11.0 [facility] Serum or plasma creatine kin ase activityOrdered By: Angella Jones on 10-06-2024 CK [Catalytic activity/Vol] 46 U/L 24-195 [facility] Serum or plasma lamotrigine measurement (mass/volume)Ordered By: Jaclyn Sagastume on 10-06-2024 lamoTRIgine [Mass/Vol] 8.6 ug/mL 2.0-20.0 [facility] Comment on above: Detection Limit = 1. 0Performed at: [employer] [id number] Director: Dakota Beal MD, Phone: [phone] Serum or plasma urea nitroge n measurement (mass/volume)Ordered By: Jcalyn Sagastume on 10-06-2024 Urea nitrogen [Mass/Vol] 7 mg/dL 4-19 [facility] Sodium levelOrdered By: Dharmesh Sagastume on 10-06-2024 Sodium [Moles/Vol] 141 mmol/L 133-145 [facility] Squamous epithelial cells de tection in urine sediment by light microscopyOrdered By: Jaclyn Sagastume on 10-06-2024 Epithelial cells.squamous LM Ql (Urine sed) 0-5 SEEN /hpf 5-10 [facility] T4 Free Directon 10-06-2024 T4 FREE DIRECT 0.90 ng/dL Normal 0.76-1.46 [facility] Comment on above: Performed By: #### L 501.60923, L505.5000, L501.9520, L506.0400 ####[facility] [address] [place], [place], [id number] T4 freeOrdered By: Kaiden ross on 10-06-2024 Free T4 [Mass/Vol] 0.90 ng/dL 0.76-1.46 [facility] TSH DL <= 0.005 mIU/L QnOrde red By: Kaiden Rausch on 10-06-2024 TSH Qn 2.590 uIU/mL 0.300-4.20 0 [facility] Thyroid Stim Hormone (TSH)on 10-06-2024 TSH 2.590 uIU/mL Normal 0.300-4.20 0 [facility] Comment on above: Performed By: #### L 501.67815, L505.5000, L501.9520, L506.0400 ####[facility] [address] [place], [address] Total carbon dioxide measure mentOrdered By: Kaiden Rausch on 10-06-2024 CO2 [Moles/Vol] 20 mmol/L [facility] Triglycerideson 10-06-2024 Triglyceride [Mass/Vol] 160 mg/dL Normal [facility] Comment on above: Order Comment: Comme nts: DC when propofol is d/c'dDC when propofol is d/c'd Result Comment: The drugs N-Acetylcysteine and Metamizole may falselydepress this assay.Normal range: <150 mg/dLBorderline High: 150-199 mg/dLHigh: 200-499 mg/dLVery High: >500 mg/dL Performed By: #### L 501.3620, L501.5000 ####[facility] [address] [place], [address] Triglycerides measurementOrd ered By: Angella Jones on 10-06-2024 Triglyceride [Mass/Vol] 160 mg/dL <199 [facility] Comment on above: The drugs N-Acetylcy steine and Metamizole may falsely depress this assay. Normal range: <150 mg/dLBorderline High: 150-199 mg/dLHigh: 200-499 mg/dLVery High: >500 mg/dL Urinalysis, Completeon 10-06 EPI,SQUAMOUS 0-5 SEEN Normal 5-10 [facility] Comment on above: Order Comment: NII CTOR TO SPECIFY Performed By: #### L 400.0001, L400.7600 ####[facility] [address] [place], [address] WBC 0-5 SEEN Normal 0-5 [facility] Comment on above: Order Comment: NII CTOR TO SPECIFY Performed By: #### L 400.0001, L400.7600 ####[facility] [address] [place], [address] BACTERIA 0 SEEN Normal None Seen [facility] Comment on above: Order Comment: [facility] CTOR TO SPECIFY Performed By: #### L 400.0001, L400.7600 ####[facility] [address] [place], [address] Mucus Ql (Urine sed) 0 SEEN Normal [facility] Comment on above: Order Comment: NII CTOR TO SPECIFY Performed By: #### L 400.0001, L400.7600 ####[facility] [address] [place], [address] RBC 0 SEEN Normal 0-5 [facility] Comment on above: Order Comment: [facility] CTOR TO SPECIFY Performed By: #### L 400.0001, L400.7600 ####[facility] [address] [place], [address] Urine Drug Screen (VISTA)on 10-06-2024 AMPHETAMINES Negative Normal <1000 ng/mL [facility] Comment on above: Performed By: #### L 501.86889, L505.5000, L501.9520, L506.0400 ####[facility] [address] [place], [address] BARBITIURATES Negative Normal < 200 ng/mL [facility] Comment on above: Performed By: #### L 501.45559, L505.5000, L501.9520, L506.0400 ####[facility] [address] [facility] [address] BENZODIAZIPINE Negative Normal < 200 ng/mL [facility] Comment on above: Performed By: #### L 501.03678, L505.5000, L501.9520, L506.0400 ####[facility] [address] [facility] [address] BUP Ur Drug Scr Negative Normal < 200 ng/mL [facility] Comment on above: Performed By: #### L 501.83736, L505.5000, L501.9520, L506.0400 ####[facility] [address] [place] [address] COCAINE Negative Normal < 300 ng/mL [facility] Comment on above: Performed By: #### L 501.10385, L505.5000, L501.9520, L506.0400 ####[facility] [address] [place], [address] Fentanyl Negative Normal [facility] Comment on above: Performed By: #### L 501.72473, L505.5000, L501.9520, L506.0400 ####[facility] [address] [place] [id number] METHADONE Negative Normal < 300 ng/mL [facility] Comment on above: Performed By: #### L 501.79479, L505.5000, L501.9520, L506.0400 ####[facility] [address] [place] [id number] OPIATES Negative Normal < 300 ng/mL [facility] Comment on above: Performed By: #### L 501.89589, L505.5000, L501.9520, L506.0400 ####[facility] [address] [place], [address] OXYCODONE Negative Normal < 100 ng/mL [facility] Comment on above: Performed By: #### L 501.46904, L505.5000, L501.9520, L506.0400 ####[facility] [address] [place], [address] PCP Negative Normal < 25 ng/mL [facility] Comment on above: Performed By: #### L 501.78006, L505.5000, L501.9520, L506.0400 ####[facility] [address] [place], [address] THC Negative Normal < 50 ng/mL [facility] Comment on above: Performed By: #### L 501.53163, L505.5000, L501.9520, L506.0400 ####[facility] [address] [place], [address] Urine benzodiazepine levelOr dered By: Kaiden Rausch on 10-06-2024 Benzodiazepines Ql (U) Negative < 200 ng/mL [facility] Urine clarityOrdered By: Sreedhar Sagastume on 10-06-2024 Clarity (U) Clear Clear [facility] Urine cocaine levelOrdered B y: Kaiden Rausch on 10-06-2024 Cocaine Ql (U) Negative < 300 ng/mL [facility] Urine color determinationOrd ered By: Jaclyn Sagastume on 10-06-2024 Color (U) Straw Yellow [facility] Urine cjcqv-1-elfxjnstrjwdzq abinol (THC) measurementOrdered By: Kaiden Rausch on 10-06-2024 Cannabinoids Screen Ql (U) Negative < 50 ng/mL [facility] Urine glucose detectionOrder ed By: Jaclyn Sagastume on 10-06-2024 Glucose Ql (U) Normal mg/dl Normal [facility] Urine leukocyte esterase det ection by dipstickOrdered By: Jaclyn Sagastume on 10-06-2024 Leukocyte esterase Test strip Ql (U) Negative Negative [facility] Urine pHOrdered By: Da Sagastume on 10-06-2024 pH (U) 6.5 [pH] 5.0 - 8.0 [facility] Urine phencyclidine (PCP) de tectionOrdered By: Kaiden Rausch on 10-06-2024 Phencyclidine Ql (U) Negative < 25 ng/mL [facility] Urine testOrdered By: Jaclyn Sagastume on 10-06-2024 HCG ( test) Ql (U) Negative [facility] Comment on above: Very dilute urine sp ecimens, as indicated by a low specificgravity, may not contain employment representative levels of hCG. If is still suspected, a first morning urinespecimen should be collected 48 hours later and tested. Urine sediment bacteria coun t by microscopy (number/high power field)Ordered By: Jaclyn Sagastume on 10-06-2024 Bacteria LM.HPF (Urine sed) [#/Area] 0 /[HPF] None Seen [facility] Urine specific gravity measu rementOrdered By: Jaclyn Sagastume on 10-06-2024 Specific gravity (U) [Rel density] 1.010 1.002-1.03 0 [facility] Urine urobilinogen measureme ntOrdered By: Jaclyn Sagastume on 10-06-2024 Urobilinogen Ql (U) Normal mg/dl Normal [facility] White blood cell (WBC) count Ordered By: Jaclyn Sagastume on 10-06-2024 WBC (Bld) [#/Vol] 12.9 10*3/uL High 4.4-11.0 [facility] White blood cell countOrdere d By: Jaclyn Sagastume on 10-06-2024 White blood cell count 0-5 SEEN /hpf 0-5 [facility] Zonisamide SerPl-mCncon Zonisamide [Mass/Vol] 18.9 ug/mL Normal 10.0-40.0 [facility] Comment on above: Order Comment: Speci men Type: BLOOD SPECIMENOrdering Facility: [facility] Address: [address] [place] [id number] Result Comment: This test was developed, and its performance characteristics determined by the [facility] Department of Pathology and Laboratory Medicine. It has not been cleared or approved by the FDA. The [facility] Department of Pathology and Laboratory Medicine is regulated under CLIA as qualified to perform high-complexity testing. This test is used for clinical purposes. It should not be regarded as investigational or for research. Performed By: #### 2 9620-2, 6948-4 ####[facility] [id number] [address] [address] [place] aPTT PPPon 10-06-2024 aPTT Coag (PPP) [Time] 24.3 s Normal 23.0-32.4 [facility] Comment on above: Order Comment: Speci men Type: BLOOD SPECIMENOrdering Facility: [facility] Address: [address] [place] [address] Performed By: #### 3 4528-0, 67689-7 ####[facility] LABORATORYCLIA [id number] [place] [address] [place] lamoTRIgine SerPl-mCncon lamoTRIgine [Mass/Vol] 6.7 ug/mL Normal 1.0-13.0 [facility] Comment on above: Order Comment: Juan Jose pickens Type: BLOOD SPECIMENOrdering Facility: [facility] Address: [address] [place] [address] Result Comment: This test was developed, and its performance characteristics determined by the [facility] Department of Pathology and Laboratory Medicine. It has not been cleared or approved by the FDA. The [facility] Department of Pathology and Laboratory Medicine is regulated under CLIA as qualified to perform high-complexity testing. This test is used for clinical purposes. It should not be regarded as investigational or for research. Performed By: #### 2 9620-2, 6948-4 ####[facility] LABCLIA [id number] [address] [address] [place] Gastric Emptying Studyon Gastric Emptying Study Normal [facility] Gastroenterology Visit Repor ton 09-14-2024 Gastroenterology Visit Report Normal [facility] Lamotrigine (Lamictal) Level on 08-25-2024 LAMOTRIGINE 10.2 ug/mL Normal 2.0-20.0 [facility] Comment on above: Result Comment: Karthik ction Limit = 1.0Performed at: - [facility] [place], [place] [id number] Director: Dakota Beal MD, Phone: [phone] Performed By: #### L 3300.4400 ####[facility] [address] [place], [address] L5500.0550on 08-24-2024 BEEF <0.10 Normal Class 0 [facility] Comment on above: Performed By: #### L 3200.1400, L3410.2710, L5500.0550, L3410.2920 ####[facility] [address] [place], [address] CHOCOLATE <0.10 Normal Class 0 [facility] Comment on above: Performed By: #### L 3200.1400, L3410.2710, L5500.0550, L3410.2920 ####[facility] [address] [place], [address] CODFISH <0.10 Normal Class 0 [facility] Comment on above: Performed By: #### L 3200.1400, L3410.2710, L5500.0550, L3410.2920 ####[facility] [address] [place], [address] COMMENT Comment Normal . [facility] Comment on above: Result Comment: Cindy laguerre of Specific IgE Class Description of Class ----- < 0.10 0 Negative 0.10 - 0.31 0/I Equivocal/Low 0.32 - 0.55 I Low 0.56 - 1.40 II Moderate 1.41 - 3.90 III High 3.91 - 19.00 IV Very High 19.01 - 100.00 V Very High >100.00 Very High Performed By: #### L 3200.1400, L3410.2710, L5500.0550, L3410.2920 ####[facility] [address] [place], [address] CORN <0.10 Normal Class 0 [facility] Comment on above: Performed By: #### L 3200.1400, L3410.2710, L5500.0550, L3410.2920 ####[facility] [address] [place], [address] EGG, WHOLE <0.10 Normal Class 0 [facility] Comment on above: Result Comment: Perf ormed at: - [facility] [id number] Director: Dakota Beal MD, Phone: [phone] Performed By: #### L 3200.1400, L3410.2710, L5500.0550, L3410.2920 ####[facility] [address] [place], [address] MILK (COW) <0.10 Normal Class 0 [facility] Comment on above: Performed By: #### L 3200.1400, L3410.2710, L5500.0550, L3410.2920 ####[facility] [address] [place], [address] MUSSELS <0.10 Normal Class 0 [facility] Comment on above: Performed By: #### L 3200.1400, L3410.2710, L5500.0550, L3410.2920 ####[facility] [address] [place], [address] PEANUT <0.10 Normal Class 0 [facility] Comment on above: Performed By: #### L 3200.1400, L3410.2710, L5500.0550, L3410.2920 ####[facility] [address] [place], [address] PORK <0.10 Normal Class 0 [facility] Comment on above: Performed By: #### L 3200.1400, L3410.2710, L5500.0550, L3410.2920 ####[facility] [address] [place], [address] SALMON <0.10 Normal Class 0 [facility] Comment on above: Performed By: #### L 3200.1400, L3410.2710, L5500.0550, L3410.2920 ####[facility] [address] [place], [address] SHRIMP <0.10 Normal Class 0 [facility] Comment on above: Performed By: #### L 3200.1400, L3410.2710, L5500.0550, L3410.2920 ####[facility] [address] [place], [address] SOYBEAN <0.10 Normal Class 0 [facility] Comment on above: Performed By: #### L 3200.1400, L3410.2710, L5500.0550, L3410.2920 ####[facility] [address] [place], [address] TUNA <0.10 Normal Class 0 [facility] Comment on above: Performed By: #### L 3200.1400, L3410.2710, L5500.0550, L3410.2920 ####[facility] [address] [place], [address] WHEAT <0.10 Normal Class 0 [facility] Comment on above: Performed By: #### L 3200.1400, L3410.2710, L5500.0550, L3410.2920 ####[facility] [address] [place], [place], [id number] Abdomen Single Viewon 2024 Abdomen Single View Normal [facility] Serum or plasma lamotrigine measurement (mass/volume)Ordered By: Kendall Conroy on 08-23-2024 lamoTRIgine [Mass/Vol] 10.2 ug/mL 2.0-20.0 [facility] Comment on above: Detection Limit = 1. 0Performed at: [facility] [address] [id number] Director: Dakota Beal MD, Phone: [phone] Abdomen Single Viewon 2024 Abdomen Single View Normal [facility] Absolute lymphocyte countOrd ered By: Jhon Priest on 08-18-2024 Lymphocytes Auto (Unsp spec) [#/Vol] 1.74 10*3/uL 0.83-4.51 [facility] Absolute neutrophil countOrd ered By: Jhon Priest on 08-18-2024 Neutrophils (Bld) [#/Vol] 5.3 10*3/uL 2.0-7.7 [facility] Anion gap in Serum or Plasma Ordered By: Jhon Priest on 08-18-2024 Anion gap [Moles/Vol] 12 mmol/L 5- [facility] Automated lymphocyte count a s percentage of total leukocytesOrdered By: Jhon Priest on 08-18-2024 Lymphocytes/100 WBC Auto (Unsp spec) 22.5 % - [facility] BUN/creatinine ratioOrdered By: Jhon Priest on 08-18-2024 Urea nitrogen/Creatinine [Mass ratio] 11.3 mg/mg - [facility] Basic Metabolic Profile (BMP )on 08-18-2024 BUN/CRE 11.3 RATIO Normal - [facility] Comment on above: Performed By: #### L 500.2500, L100.0100 ####[facility] [address] [place], [address] Calcium [Mass/Vol] 9.4 mg/dL Normal 7.6-11.0 [facility] Comment on above: Performed By: #### L 500.2500, L100.0100 ####[facility] [address] [place], [address] Chloride [Moles/Vol] 107 mmol/L Normal 98-108 [facility] Comment on above: Performed By: #### L 500.2500, L100.0100 ####[facility] [address] [place], [address] CO2 [Moles/Vol] 19.6 mmol/L Low 21.0-32.0 [facility] Comment on above: Performed By: #### L 500.2500, L100.0100 ####[facility] [address] [place], [address] Creatinine [Mass/Vol] 0.77 mg/dL Normal 0.70-1.20 [facility] Comment on above: Performed By: #### L 500.2500, L100.0100 ####[facility] [address] [place], [address] ECRCL 94.68 ml/min Normal 50-250 [facility] Comment on above: Performed By: #### L 500.2500, L100.0100 ####[facility] [address] [place], [address] GAP 12 Normal 5-15 [facility] Comment on above: Performed By: #### L 500.2500, L100.0100 ####[facility] [address] [place], [address] GFR/1.73 sq M.predicted among non-blacks MDRD (S/P/Bld) [Vol rate/Area] 103 mL/min/{1.73_m2} Normal >60 [facility] Comment on above: Result Comment: mL/m in/1.73m2 CKD-EPI Creatinine Equation (2020) Performed By: #### L 500.2500, L100.0100 ####[facility] [address] [place], [address] Glucose [Mass/Vol] 114 mg/dL High 70-99 [facility] Comment on above: Performed By: #### L 500.2500, L100.0100 ####[facility] [address] [place], [address] Potassium [Moles/Vol] 3.5 mmol/L Normal 3.3-5.1 [facility] Comment on above: Performed By: #### L 500.2500, L100.0100 ####[facility] [address] [place], [address] Sodium [Moles/Vol] 139 mmol/L Normal 133-145 [facility] Comment on above: Performed By: #### L 500.2500, L100.0100 ####[facility] [address] [place], [address] Urea nitrogen [Mass/Vol] 9 mg/dL Normal 4-19 [facility] Comment on above: Performed By: #### L 500.2500, L100.0100 ####[facility] [address] [place], [address] Basophil percentageOrdered B y: Jhon Priest on 08-18-2024 Basophils/100 WBC (Bld) 0.5 % 0-1 [facility] CBC W/Diff, Automatedon 08-01 Absolute Lymph 1.74 X10 3/uL Normal 0.83-4.51 [facility] Comment on above: Performed By: #### L 500.2500, L100.0100 ####[facility] [address] [place], [address] Absolute Neut 5.3 X10 3/uL Normal 2.0-7.7 [facility] Comment on above: Performed By: #### L 500.2500, L100.0100 ####[facility] [address] [place], [address] Basophils/100 WBC (Bld) 0.5 % Normal 0-1 [facility] Comment on above: Performed By: #### L 500.2500, L100.0100 ####[facility] [address] [place], [address] Eosinophils/100 WBC (Bld) 1.7 % Normal 0-5 [facility] Comment on above: Performed By: #### L 500.2500, L100.0100 ####[facility] [address] [place], [address] Erythrocyte distribution width (RBC) [Ratio] 13.2 % Normal 11.6-14.6 [facility] Comment on above: Performed By: #### L 500.2500, L100.0100 ####[facility] [address] [place], [address] Hematocrit (Bld) [Volume fraction] 40.6 % Normal 37-47 [facility] Comment on above: Performed By: #### L 500.2500, L100.0100 ####[facility] [address] [place], [address] Hemoglobin (Bld) [Mass/Vol] 13.6 g/dL Normal 12.0-15.0 [facility] Comment on above: Performed By: #### L 500.2500, L100.0100 ####[facility] [address] [place], [address] IG% 0.400 Normal 0.0-0.9 [facility] Comment on above: Result Comment: IG% - Immature Granulocytes (promyelocytes, myelocytes andmetamyelocytes) > 1% indicates that a LEFT SHIFT is Present. Performed By: #### L 500.2500, L100.0100 ####[facility] [address] [place], [address] Lymphocytes/100 WBC (Bld) 22.5 % Normal 19-41 [facility] Comment on above: Performed By: #### L 500.2500, L100.0100 ####[facility] [address] [place], [address] MCH (RBC) [Entitic mass] 29.3 pg Normal 27.0-32.0 [facility] Comment on above: Performed By: #### L 500.2500, L100.0100 ####[facility] [address] [place], [address] MCHC (RBC) [Mass/Vol] 33.5 g/dL Normal 32-36 [facility] Comment on above: Performed By: #### L 500.2500, L100.0100 ####[facility] [address] [place], [address] MCV (RBC) [Entitic vol] 87.5 fL Normal 81-99 [facility] Comment on above: Performed By: #### L 500.2500, L100.0100 ####[facility] [address] [place], [address] Monocytes/100 WBC (Bld) 6.3 % Normal 0-10 [facility] Comment on above: Performed By: #### L 500.2500, L100.0100 ####[facility] [address] [place], [address] Neutrophils/100 WBC (Bld) 68.6 % Normal 47-70 [facility] Comment on above: Performed By: #### L 500.2500, L100.0100 ####[facility] [address] [place], [address] Nucleated RBC (Bld) [#/Vol] 0 10*3/uL Normal 0-5 [facility] Comment on above: Performed By: #### L 500.2500, L100.0100 ####[facility] [address] [place], [address] Platelet mean volume (Bld) [Entitic vol] 9.6 fL Normal 6.2-12.0 [facility] Comment on above: Performed By: #### L 500.2500, L100.0100 ####[facility] [address] [place], [address] Platelets (Bld) [#/Vol] 269 10*3/uL Normal 150-450 [facility] Comment on above: Performed By: #### L 500.2500, L100.0100 ####[facility] [address] [place], [address] RBC (Bld) [#/Vol] 4.64 10*6/uL Normal 4.2-5.4 [facility] Comment on above: Performed By: #### L 500.2500, L100.0100 ####[facility] [address] [place], [address] RDW SD 42.2 fl Normal 35.1-43.9 [facility] Comment on above: Performed By: #### L 500.2500, L100.0100 ####[facility] [address] [place], [address] WBC (Bld) [#/Vol] 7.7 10*3/uL Normal 4.4-11.0 [facility] Comment on above: Performed By: #### L 500.2500, L100.0100 ####[facility] [address] [place], [address] Carbon dioxide, total [Moles /volume] in Central venous bloodOrdered By: Jhon Priest on 08-18-2024 CO2 [Moles/Vol] 19.6 mmol/L Low 21.0-32.0 [facility] Chloride assayOrdered By: Ferny Priest on 08-18-2024 Chloride [Moles/Vol] 107 mmol/L 98-108 [facility] Emergency Department Summary on 08-18-2024 Emergency Department Summary Normal [facility] Eosinophil percentageOrdered By: Jhon Priest on 08-18-2024 Eosinophils/100 WBC (Bld) 1.7 % 0-5 [facility] Erythrocyte distribution wid th (RBC) [Ratio]Ordered By: Jhon Priest on 08-18-2024 Erythrocyte distribution width (RBC) [Entitic vol] 42.2 fL 35.1-43.9 [facility] Erythrocyte distribution wid th ratioOrdered By: Jhon Priest on 08-18-2024 Erythrocyte distribution width (RBC) [Ratio] 13.2 % 11.6-14.6 [facility] Erythrocyte distribution wid th standard deviationOrdered By: Jhon Priest on 08-18-2024 Erythrocyte distribution width (RBC) [Ratio] 42.2 fl 35.1-43.9 [facility] Estimation of creatinine sofia aranceOrdered By: Jhon Priest on 08-18-2024 Estimated Creatinine Clearance Calc 94.68 ml/min 50-250 [facility] GFR/1.73 sq M.predicted stephanie g non-blacks MDRD (S/P/Bld) [Vol rate/Area]Ordered By: Jhon Priest on 08-18-2024 Estimated GFR (MDRD) Non-Af Amer 103 >60 [facility] Comment on above: mL/min/1.73m2 CKD-EP I Creatinine Equation (2020) Glomerular filtration rate ( GFR) estimation/1.73 sq m using serum, plasma, or whole bOrdered By: Jhon Priest on 08-18-2024 GFR/1.73 sq M.predicted among non-blacks MDRD (S/P/Bld) [Vol rate/Area] 103 mL/min/{1.73_m2} >60 [facility] Comment on above: mL/min/1.73m2 CKD-EP I Creatinine Equation (2020) Hematocrit Auto (Bld) [Volum e fraction]Ordered By: Jhon Priest on 08-18-2024 Hematocrit (Bld) [Volume fraction] 40.6 % 37-47 [facility] Hemoglobin measurementOrdere d By: Jhon Priest on 08-18-2024 Hemoglobin (Bld) [Mass/Vol] 13.6 g/dL 12.0-15.0 [facility] Immature granulocytes/100 WB C Auto (Bld)Ordered By: Jhon Priest on 08-18-2024 Immature granulocytes/100 WBC (Bld) 0.400 % 0.0-0.9 [facility] Comment on above: IG% - Immature Granu locytes (promyelocytes, myelocytes and metamyelocytes) > 1% indicates that a LEFT SHIFT is Present. Lymphocytes Auto (Unsp spec) [#/Vol]Ordered By: Jhon Priest on 08-18-2024 Lymphocytes (Bld) [#/Vol] 1.74 10*3/uL 0.83-4.51 [facility] Lymphocytes/100 WBC Auto (Un sp spec)Ordered By: Jhon Priest on 08-18-2024 Lymphocytes/100 WBC (Bld) 22.5 % 19-41 [facility] MCV (mean corpuscular volume ) determinationOrdered By: Jhon Priest on 08-18-2024 MCV (RBC) [Entitic vol] 87.5 fL 81-99 [facility] Mean corpuscular hemoglobin (MCH) determinationOrdered By: Jhon Priest on 08-18-2024 MCH (RBC) [Entitic mass] 29.3 pg 27.0-32.0 [facility] Mean corpuscular hemoglobin concentration (MCHC) determinationOrdered By: Jhon Priest on 08-18-2024 MCHC (RBC) [Mass/Vol] 33.5 g/dL 32-36 [facility] Mean platelet volume determi nationOrdered By: Jhon Priest on 08-18-2024 Platelet mean volume (Bld) [Entitic vol] 9.6 fL 6.2-12.0 [facility] Monocyte percentageOrdered B y: Jhon Priest on 08-18-2024 Monocytes/100 WBC (Bld) 6.3 % 0-10 [facility] Neutrophil percentageOrdered By: Jhon Priest on 08-18-2024 Neutrophils/100 WBC (Bld) 68.6 % 47-70 [facility] Nucleated red blood cell per centageOrdered By: Jhon Priest on 08-18-2024 Nucleated RBC/100 WBC (Bld) [Ratio] 0 % 0-5 [facility] Platelet countOrdered By: Ferny Priest on 08-18-2024 Platelets (Bld) [#/Vol] 269 10*3/uL 150-450 [facility] Potassium (Unsp spec) [Mass/ Vol]Ordered By: Jhon Priest on 08-18-2024 Potassium [Moles/Vol] 3.5 mmol/L 3.3-5.1 [facility] Potassium measurement (mass/ volume)Ordered By: Jhon Priest on 08-18-2024 Potassium (Unsp spec) [Mass/Vol] 3.5 mmol/L 3.3-5.1 [facility] RBC Auto (Bld) [#/Vol]Ordere d By: Jhon Priest on 08-18-2024 RBC (Bld) [#/Vol] 4.64 10*6/uL 4.2-5.4 [facility] Serum creatinine measurement (mass/volume)Ordered By: Jhon Priest on 08-18-2024 Creatinine [Mass/Vol] 0.77 mg/dL 0.70-1.20 [facility] Serum glucose measurement (m ass/volume)Ordered By: Jhon Priest on 08-18-2024 Glucose [Mass/Vol] 114 mg/dL High 70-99 [facility] Serum or plasma calcium traci urement (mass/volume)Ordered By: Jhon Priest on 08-18-2024 Calcium [Mass/Vol] 9.4 mg/dL 7.6-11.0 [facility] Serum or plasma urea nitroge n measurement (mass/volume)Ordered By: Jhon Priest on 08-18-2024 Urea nitrogen [Mass/Vol] 9 mg/dL 4-19 [facility] Sodium levelOrdered By: Jhon Priest on 08-18-2024 Sodium [Moles/Vol] 139 mmol/L 133-145 [facility] White blood cell (WBC) count Ordered By: Jhon Priest on 08-18-2024 WBC (Bld) [#/Vol] 7.7 10*3/uL 4.4-11.0 [facility] Endomysial Antibody IgAon ENDOMYSIAL IGA Negative Normal Negative [facility] Comment on above: Performed By: #### L 3200.1400, L3410.2710, L5500.0550, L3410.2920 ####[facility] [address] [place], [place], [id number] Immunoglobulin Aon 5 IMMUNOGLOB A QN 321 mg/dL Normal 87-352 [facility] Comment on above: Order Comment: Y Result Comment: Perf ormed at: CB - [facility] [address] [id number] Director: Nicolas Fleming PhD, Phone: [phone] Performed By: #### L 3200.1400, L3410.2710, L5500.0550, L3410.2920 ####[facility] [address] [place], [place], [id number] t-Transglutaminase IgAon tTG IGA <2 Normal 0-3 [facility] Comment on above: Result Comment: Nega tive 0 - 3 Weak Positive 4 - 10 Positive >10 Tissue Transglutaminase (tTG) has been identified as the endomysial antigen. Studies have demonstr- ated that endomysial IgA antibodies have over 99% specificity for gluten sensitive enteropathy. Performed By: #### L 3200.1400, L3410.2710, L5500.0550, L3410.2920 ####[facility] [address] [place], [place], [id number] Endomysial IgA antibody assa yOrdered By: Katie Mayo on 08-16-2024 Endomysial IgA Antibody Negative Negative [facility] Gastroenterology Visit Repor ton 08-16-2024 Gastroenterology Visit Report Normal [facility] IgA [Mass/Vol]Ordered By: Amy Mayo on 08-16-2024 Immunoglobulin A 321 mg/dL 87-352 [facility] Comment on above: Performed at: [facility] [address] [id number] Director: Nicolas Fleming PhD, Phone: [phone] Laboratory - Miscellaneous t estsOrdered By: Katie Mayo on 08-16-2024 Service comment (Unsp spec) [Interp] Comment . [facility] Comment on above: Levels of Specific I [...] IgE Qn (S) <0.10 kU/L Class 0 [facility] Serum codfish IgE antibody a ssay (units/volume)Ordered By: Katie Mayo on 08-16-2024 Codfish IgE Qn (S) <0.10 kU/L Class 0 [facility] Serum corn IgE antibody assa y (units/volume)Ordered By: Katie Mayo on 08-16-2024 [place] IgE Qn (S) <0.10 kU/L Class 0 [facility] Serum cow milk IgE antibody assay (units/volume)Ordered By: Katie Mayo on 08-16-2024 Cow milk IgE Qn (S) <0.10 kU/L Class 0 [facility] Serum or plasma IgA measurem ent (mass/volume)Ordered By: Katiegloria Mayo on 08-16-2024 IgA [Mass/Vol] 321 mg/dL 87-352 [facility] Comment on above: Performed at: [address] [id number] Director: Nicolas Fleming PhD, Phone: [phone] Serum peanut IgE antibody as say (units/volume)Ordered By: Katie Mayo on 08-16-2024 Peanut IgE Qn (S) <0.10 kU/L Class 0 [facility] Serum pork IgE antibody assa y (units/volume)Ordered By: Katie Mayo on 08-16-2024 Pork IgE Qn (S) <0.10 kU/L Class 0 [facility] Serum salmon IgE antibody as say (units/volume)Ordered By: Katie Mayo on 08-16-2024 [place] IgE Qn (S) <0.10 kU/L Class 0 [facility] Serum soybean IgE antibody a ssay (units/volume)Ordered By: Katie Mayo on 08-16-2024 Soybean IgE Qn (S) <0.10 kU/L Class 0 [facility] Serum tissue transglutaminas e (tTG) IgA antibody assay (units/volume)Ordered By: Katie Mayo on 08-16-2024 tTG IgA Qn (S) <2 U/mL 0-3 [facility] Comment on above: Negative 0 - 3 Weak Positive 4 - 10 Positive >10 Tissue Transglutaminase (tTG) has been identified as the endomysial antigen. Studies have demonstr- ated that endomysial IgA antibodies have over 99% specificity for gluten sensitive enteropathy. Serum tuna IgE antibody assa y (units/volume)Ordered By: Katie Mayo on 08-16-2024 Tuna IgE Qn (S) <0.10 kU/L Class 0 [facility] Serum wheat IgE antibody ass ay (units/volume)Ordered By: Katie Mayo on 08-16-2024 Wheat IgE Qn (S) <0.10 kU/L [facility] 0 [facility] Serum whole egg IgE antibody assay (units/volume)Ordered By: Katie Mayo on 08-16-2024 Whole Egg IgE Qn (S) <0.10 kU/L Class 0 [facility] Comment on above: Performed at: [address] [id number] Director: Dakota Beal MD, Phone: [phone] tTG IgA Qn (S)Ordered By: Amy Mayo on 08-16-2024 Tissue Transglutaminase IgA Ab <2 U/mL 0-3 [facility] Comment on above: Negative 0 - 3 Weak Positive 4 - 10 Positive >10 Tissue Transglutaminase (tTG) has been identified as the endomysial antigen. Studies have demonstr- ated that endomysial IgA antibodies have over 99% specificity for gluten sensitive enteropathy. [facility]2024 [facility]. COMMENT Normal . [facility] Comment on above: Order Comment: RED/S RUSSELL/[id number] Result Comment: Test Ordered: [id number] Zonisamide(Zonegran), SerumZonisamide 29.3 ug/mL Reference Range: 10.0-40.0 Detection Limit = 2.0Performed at: [address] [id number] Director: Dakota Beal MD, Phone: [phone] at: [address] [id number] Director: Nicolas Fleming PhD, Phone: [id number] Performed By: #### L 100.0100, L500.4050, L3410.9998, L3300.4400, L503.5510 ####[facility] [address] [place], [address] Lamotrigine (Lamictal) Level on 08-08-2024 LAMOTRIGINE 16.3 ug/mL Normal 2.0-20.0 [facility] Comment on above: Result Comment: Dete ction Limit = 1.0Performed at: [address] [id number] Director: Dakota Beal MD, Phone: [phone] Performed By: #### L 100.0100, L500.4050, L3410.9998, L3300.4400, L503.5510 ####[facility] [address] [place] [place], [address] Absolute lymphocyte countOrd ered By: Kendall Conroy on 08-05-2024 Lymphocytes Auto (Unsp spec) [#/Vol] 1.37 10*3/uL 0.83-4.51 [facility] Absolute neutrophil countOrd ered By: Kendall Conroy on 08-05-2024 Neutrophils (Bld) [#/Vol] 4.7 10*3/uL 2.0-7.7 [facility] Ammoniaon 08-05-2024 Ammonia (P) [Moles/Vol] 39.3 umol/L Normal 11-51 [facility] Comment on above: Performed By: #### L 100.0100, L500.4050, L3410.9998, L3300.4400, L503.5510 ####[facility] [address] [place], [place], [id number] Anion gap in Serum or Plasma Ordered By: Kendall Conroy on 08-05-2024 Anion gap [Moles/Vol] 12 mmol/L 5- [facility] Automated lymphocyte count a s percentage of total leukocytesOrdered By: Kendall Conroy on 08-05-2024 Lymphocytes/100 WBC Auto (Unsp spec) 20.9 % 19- [facility] BUN/creatinine ratioOrdered By: Kendalltimbo Conroy on 08-05-2024 Urea nitrogen/Creatinine [Mass ratio] 13.4 mg/mg 10-20 [facility] Basophil percentageOrdered B y: Kendall Conroy on 08-05-2024 Basophils/100 WBC (Bld) 0.8 % 0-1 [facility] Bilirubin, totalOrdered By: Kendall Conroy on 08-05-2024 Bilirubin [Mass/Vol] 0.38 mg/dL 0.00-1.30 [facility] CBC W/Diff, Automatedon Absolute Lymph 1.37 X10 3/uL Normal 0.83-4.51 [facility] Comment on above: Performed By: #### L 100.0100, L500.4050, L3410.9998, L3300.4400, L503.5510 ####[facility] [address] [place], [address] Absolute Neut 4.7 X10 3/uL Normal 2.0-7.7 [facility] Comment on above: Performed By: #### L 100.0100, L500.4050, L3410.9998, L3300.4400, L503.5510 ####[facility] [address] [place], [address] Basophils/100 WBC (Bld) 0.8 % Normal 0-1 [facility] Comment on above: Performed By: #### L 100.0100, L500.4050, L3410.9998, L3300.4400, L503.5510 ####[facility] [address] [place], [address] Eosinophils/100 WBC (Bld) 1.8 % Normal 0-5 [facility] Comment on above: Performed By: #### L 100.0100, L500.4050, L3410.9998, L3300.4400, L503.5510 ####[facility] [address] [place], [address] Erythrocyte distribution width (RBC) [Ratio] 13.3 % Normal 11.6-14.6 [facility] Comment on above: Performed By: #### L 100.0100, L500.4050, L3410.9998, L3300.4400, L503.5510 ####[facility] [address] [place], [address] Hematocrit (Bld) [Volume fraction] 42.6 % Normal 37-47 [facility] Comment on above: Performed By: #### L 100.0100, L500.4050, L3410.9998, L3300.4400, L503.5510 ####[facility] [address] [place], [address] Hemoglobin (Bld) [Mass/Vol] 14.5 g/dL Normal 12.0-15.0 [facility] Comment on above: Performed By: #### L 100.0100, L500.4050, L3410.9998, L3300.4400, L503.5510 ####[facility] [address] [place], [address] IG% 0.300 Normal 0.0-0.9 [facility] Comment on above: Result Comment: IG% - Immature Granulocytes (promyelocytes, myelocytes andmetamyelocytes) > 1% indicates that a LEFT SHIFT is Present. Performed By: #### L 100.0100, L500.4050, L3410.9998, L3300.4400, L503.5510 ####[facility] [address] [place], [address] Lymphocytes/100 WBC (Bld) 20.9 % Normal 19-41 [facility] Comment on above: Performed By: #### L 100.0100, L500.4050, L3410.9998, L3300.4400, L503.5510 ####[facility] [address] [place], [address] MCH (RBC) [Entitic mass] 29.7 pg Normal 27.0-32.0 [facility] Comment on above: Performed By: #### L 100.0100, L500.4050, L3410.9998, L3300.4400, L503.5510 ####[facility] [address] [place], [address] MCHC (RBC) [Mass/Vol] 34.0 g/dL Normal 32-36 [facility] Comment on above: Performed By: #### L 100.0100, L500.4050, L3410.9998, L3300.4400, L503.5510 ####[facility] [address] [place], [address] MCV (RBC) [Entitic vol] 87.1 fL Normal 81-99 [facility] Comment on above: Performed By: #### L 100.0100, L500.4050, L3410.9998, L3300.4400, L503.5510 ####[facility] [address] [place], [address] Monocytes/100 WBC (Bld) 5.2 % Normal 0-10 [facility] Comment on above: Performed By: #### L 100.0100, L500.4050, L3410.9998, L3300.4400, L503.5510 ####[facility] [address] [place], [address] Neutrophils/100 WBC (Bld) 71.0 % High 47-70 [facility] Comment on above: Performed By: #### L 100.0100, L500.4050, L3410.9998, L3300.4400, L503.5510 ####[facility] [address] [place], [address] Nucleated RBC (Bld) [#/Vol] 0 10*3/uL Normal 0-5 [facility] Comment on above: Performed By: #### L 100.0100, L500.4050, L3410.9998, L3300.4400, L503.5510 ####[facility] [address] [place], [address] Platelet mean volume (Bld) [Entitic vol] 9.4 fL Normal 6.2-12.0 [facility] Comment on above: Performed By: #### L 100.0100, L500.4050, L3410.9998, L3300.4400, L503.5510 ####[facility] [address] [place], [address] Platelets (Bld) [#/Vol] 249 10*3/uL Normal 150-450 [facility] Comment on above: Performed By: #### L 100.0100, L500.4050, L3410.9998, L3300.4400, L503.5510 ####[facility] [address] [place], [address] RBC (Bld) [#/Vol] 4.89 10*6/uL Normal 4.2-5.4 [facility] Comment on above: Performed By: #### L 100.0100, L500.4050, L3410.9998, L3300.4400, L503.5510 ####[facility] [address] [place], [address] RDW SD 41.7 fl Normal 35.1-43.9 [facility] Comment on above: Performed By: #### L 100.0100, L500.4050, L3410.9998, L3300.4400, L503.5510 ####[facility] [address] [place], [address] WBC (Bld) [#/Vol] 6.6 10*3/uL Normal 4.4-11.0 [facility] Comment on above: Performed By: #### L 100.0100, L500.4050, L3410.9998, L3300.4400, L503.5510 ####[facility] [address] [place] [place], [address] Carbon dioxide, total [Moles /volume] in Central venous bloodOrdered By: Kendall Conroy on 08-05-2024 CO2 [Moles/Vol] 17.4 mmol/L Low 21.0-32.0 [facility] Chloride assayOrdered By: Ra torey Conroy on 08-05-2024 Chloride [Moles/Vol] 109 mmol/L High 98-108 [facility] Comprehensive Metabolic Prof ilon 08-05-2024 Albumin [Mass/Vol] 4.4 g/dL Normal 3.5-5.0 [facility] Comment on above: Performed By: #### L 100.0100, L500.4050, L3410.9998, L3300.4400, L503.5510 ####[facility] [address] [place], [address] Albumin/Globulin [Mass ratio] 1.5 {ratio} Normal 0.9-2.4 [facility] Comment on above: Performed By: #### L 100.0100, L500.4050, L3410.9998, L3300.4400, L503.5510 ####[facility] [address] [place], [address] ALK PHOS 103 U/L Normal 35-104 [facility] Comment on above: Performed By: #### L 100.0100, L500.4050, L3410.9998, L3300.4400, L503.5510 ####[facility] [address] [place], [address] ALT [Catalytic activity/Vol] 19 U/L Normal <=34 [facility] Comment on above: Performed By: #### L 100.0100, L500.4050, L3410.9998, L3300.4400, L503.5510 ####[facility] [address] [place], [address] AST [Catalytic activity/Vol] 23 U/L Normal <=31 [facility] Comment on above: Performed By: #### L 100.0100, L500.4050, L3410.9998, L3300.4400, L503.5510 ####[facility] [address] [place], [address] Bilirubin [Mass/Vol] 0.38 mg/dL Normal 0.00-1.30 [facility] Comment on above: Performed By: #### L 100.0100, L500.4050, L3410.9998, L3300.4400, L503.5510 ####[facility] [address] [place], [address] BUN/CRE 13.4 RATIO Normal 10-20 [facility] Comment on above: Performed By: #### L 100.0100, L500.4050, L3410.9998, L3300.4400, L503.5510 ####[facility] [address] [place], [address] Calcium [Mass/Vol] 9.6 mg/dL Normal 7.6-11.0 [facility] Comment on above: Performed By: #### L 100.0100, L500.4050, L3410.9998, L3300.4400, L503.5510 ####[facility] [address] [place], [address] Chloride [Moles/Vol] 109 mmol/L High 98-108 [facility] Comment on above: Performed By: #### L 100.0100, L500.4050, L3410.9998, L3300.4400, L503.5510 ####[facility] [address] [place], [address] CO2 [Moles/Vol] 17.4 mmol/L Low 21.0-32.0 [facility] Comment on above: Performed By: #### L 100.0100, L500.4050, L3410.9998, L3300.4400, L503.5510 ####[facility] [address] [place], [address] Creatinine [Mass/Vol] 0.81 mg/dL Normal 0.70-1.20 [facility] Comment on above: Performed By: #### L 100.0100, L500.4050, L3410.9998, L3300.4400, L503.5510 ####[facility] [address] [place], [address] GAP 12 Normal 5-15 [facility] Comment on above: Performed By: #### L 100.0100, L500.4050, L3410.9998, L3300.4400, L503.5510 ####[facility] [address] [place], [address] GFR/1.73 sq M.predicted among non-blacks MDRD (S/P/Bld) [Vol rate/Area] 98 mL/min/{1.73_m2} Normal >60 [facility] Comment on above: Result Comment: mL/m in/1.73m2 CKD-EPI Creatinine Equation (2020) Performed By: #### L 100.0100, L500.4050, L3410.9998, L3300.4400, L503.5510 ####[facility] [address] [place], [address] Globulin (S) [Mass/Vol] 3.0 g/dL Normal 2.2-4.2 [facility] Comment on above: Performed By: #### L 100.0100, L500.4050, L3410.9998, L3300.4400, L503.5510 ####[facility] [address] [place], [address] Glucose [Mass/Vol] 92 mg/dL Normal 70-99 [facility] Comment on above: Performed By: #### L 100.0100, L500.4050, L3410.9998, L3300.4400, L503.5510 ####[facility] [address] [place], [address] Potassium [Moles/Vol] 3.8 mmol/L Normal 3.3-5.1 [facility] Comment on above: Performed By: #### L 100.0100, L500.4050, L3410.9998, L3300.4400, L503.5510 ####[facility] [address] [place], [address] Sodium [Moles/Vol] 138 mmol/L Normal 133-145 [facility] Comment on above: Performed By: #### L 100.0100, L500.4050, L3410.9998, L3300.4400, L503.5510 ####[facility] [address] [place], [address] T PROT 7.4 g/dL Normal 5.9-8.4 [facility] Comment on above: Performed By: #### L 100.0100, L500.4050, L3410.9998, L3300.4400, L503.5510 ####[facility] [address] [place], [address] Urea nitrogen [Mass/Vol] 11 mg/dL Normal 4-19 [facility] Comment on above: Performed By: #### L 100.0100, L500.4050, L3410.9998, L3300.4400, L503.5510 ####[facility] [address] [place], [address] Eosinophil percentageOrdered By: Kendall Conroy on 08-05-2024 Eosinophils/100 WBC (Bld) 1.8 % 0-5 [facility] Erythrocyte distribution wid th (RBC) [Ratio]Ordered By: Kendall Conroy on 08-05-2024 Erythrocyte distribution width (RBC) [Entitic vol] 41.7 fL 35.1-43.9 [facility] Erythrocyte distribution wid th ratioOrdered By: Kendalltimbo Conroy on 08-05-2024 Erythrocyte distribution width (RBC) [Ratio] 13.3 % 11.6-14.6 [facility] Erythrocyte distribution wid th standard deviationOrdered By: Kendalltimbo Conroy on 08-05-2024 Erythrocyte distribution width (RBC) [Ratio] 41.7 fl 35.1-43.9 [facility] GFR/1.73 sq M.predicted stephanie g non-blacks MDRD (S/P/Bld) [Vol rate/Area]Ordered By: Kendall Conroy on 08-05-2024 Estimated GFR (MDRD) Non-Af Amer 98 >60 [facility] Comment on above: mL/min/1.73m2 CKD-EP I Creatinine Equation (2020) Glomerular filtration rate ( GFR) estimation/1.73 sq m using serum, plasma, or whole bOrdered By: Kendall Conroy on 08-05-2024 GFR/1.73 sq M.predicted among non-blacks MDRD (S/P/Bld) [Vol rate/Area] 98 mL/min/{1.73_m2} >60 [facility] Comment on above: mL/min/1.73m2 CKD-EP I Creatinine Equation (2020) Hematocrit Auto (Bld) [Volum e fraction]Ordered By: Kendall Conroy on 08-05-2024 Hematocrit (Bld) [Volume fraction] 42.6 % 37-47 [facility] Hemoglobin measurementOrdere d By: Kendall Conroy on 08-05-2024 Hemoglobin (Bld) [Mass/Vol] 14.5 g/dL 12.0-15.0 [facility] Immature granulocytes/100 WB C Auto (Bld)Ordered By: Kendall Conroy 08-05-2024 Immature granulocytes/100 WBC (Bld) 0.300 % 0.0-0.9 [facility] Comment on above: IG% - Immature Granu locytes (promyelocytes, myelocytes and metamyelocytes) > 1% indicates that a LEFT SHIFT is Present. Laboratory - Chemistry and C hemistry - challengeOrdered By: Kendall Conroy on 08-05-2024 AST [Catalytic activity/Vol] 23 U/L <32 [facility] Lymphocytes Auto (Unsp spec) [#/Vol]Ordered By: Kendall Conroy 08-05-2024 Lymphocytes (Bld) [#/Vol] 1.37 10*3/uL 0.83-4.51 [facility] Lymphocytes/100 WBC Auto (Un sp spec)Ordered By: Kendall Conroy 08-05-2024 Lymphocytes/100 WBC (Bld) 20.9 % 19-41 [facility] MCV (mean corpuscular volume ) determinationOrdered By: Kendall Conroy on 08-05-2024 MCV (RBC) [Entitic vol] 87.1 fL 81-99 [facility] Mean corpuscular hemoglobin (MCH) determinationOrdered By: Kendall Conroy 08-05-2024 MCH (RBC) [Entitic mass] 29.7 pg 27.0-32.0 [facility] Mean corpuscular hemoglobin concentration (MCHC) determinationOrdered By: Kendall Conroy on 08-05-2024 MCHC (RBC) [Mass/Vol] 34.0 g/dL 32-36 [facility] Mean platelet volume determi nationOrdered By: Kendall Conroy on 08-05-2024 Platelet mean volume (Bld) [Entitic vol] 9.4 fL 6.2-12.0 [facility] Monocyte percentageOrdered B y: Kendall Conroy on 08-05-2024 Monocytes/100 WBC (Bld) 5.2 % 0-10 [facility] Neutrophil percentageOrdered By: Kendall Conroy on 08-05-2024 Neutrophils/100 WBC (Bld) 71.0 % High 47-70 [facility] Nucleated red blood cell per centageOrdered By: Kendall Conroy on 08-05-2024 Nucleated RBC/100 WBC (Bld) [Ratio] 0 % 0-5 [facility] Platelet countOrdered By: Ra torey Conroy on 08-05-2024 Platelets (Bld) [#/Vol] 249 10*3/uL 150-450 [facility] Potassium (Unsp spec) [Mass/ Vol]Ordered By: Kendall Conroy on 08-05-2024 Potassium [Moles/Vol] 3.8 mmol/L 3.3-5.1 [facility] Potassium measurement (mass/ volume)Ordered By: Kendall Conroy on 08-05-2024 Potassium (Unsp spec) [Mass/Vol] 3.8 mmol/L 3.3-5.1 [facility] RBC Auto (Bld) [#/Vol]Ordere d By: Kendall Conroy on 08-05-2024 RBC (Bld) [#/Vol] 4.89 10*6/uL 4.2-5.4 [facility] Serum creatinine measurement (mass/volume)Ordered By: Kendall Conroy on 08-05-2024 Creatinine [Mass/Vol] 0.81 mg/dL 0.70-1.20 [facility] Serum globulin measurementOr dered By: Kendall Conroy on 08-05-2024 Globulin (S) [Mass/Vol] 3.0 g/dL 2.2-4.2 [facility] Serum glucose measurement (m ass/volume)Ordered By: Kendall Conroy on 08-05-2024 Glucose [Mass/Vol] 92 mg/dL 70-99 [facility] Serum or plasma alanine diallo otransferase (ALT) measurementOrdered By: Kendall Conroy on 08-05-2024 ALT [Catalytic activity/Vol] 19 U/L <35 [facility] Serum or plasma albumin traci urement (mass/volume)Ordered By: Kendall Conroy on 08-05-2024 Albumin [Mass/Vol] 4.4 g/dL 3.5-5.0 [facility] Serum or plasma albumin/glob ulin mass ratioOrdered By: Kendall Conroy on 08-05-2024 Albumin/Globulin [Mass ratio] 1.5 {ratio} 0.9-2.4 [facility] Serum or plasma alkaline abby sphatase measurementOrdered By: Kendall Conroy on 08-05-2024 ALP [Catalytic activity/Vol] 103 U/L 35-104 [facility] Serum or plasma calcium traci urement (mass/volume)Ordered By: Kendall Conroy on 08-05-2024 Calcium [Mass/Vol] 9.6 mg/dL 7.6-11.0 [facility] Serum or plasma lamotrigine measurement (mass/volume)Ordered By: Kendall Conroy on 08-05-2024 lamoTRIgine [Mass/Vol] 16.3 ug/mL 2.0-20.0 [facility] Comment on above: Detection Limit = 1. 0Performed at: [facility] [address] [id number] Director: Dakota Beal MD, Phone: [phone] Serum or plasma urea nitroge n measurement (mass/volume)Ordered By: Kendall Conroy on 08-05-2024 Urea nitrogen [Mass/Vol] 11 mg/dL 4-19 [facility] Sodium levelOrdered By: Chas Conroy on 08-05-2024 Sodium [Moles/Vol] 138 mmol/L 133-145 [facility] T4 Free Directon 08-05-2024 T4 FREE DIRECT 0.90 ng/dL Normal 0.76-1.46 [facility] Comment on above: Performed By: #### L 506.0400, L501.9520 ####[facility] [address] [place], [place], [id number] T4 freeOrdered By: Leander Patel on 08-05-2024 Free T4 [Mass/Vol] 0.90 ng/dL 0.76-1.46 [facility] TSH DL <= 0.005 mIU/L QnOrde red By: Leander Patel on 08-05-2024 Thyroid Stimulating Hormone (TSH) 2.110 uIU/mL 0.300-4.20 0 [facility] TSH Qn 2.110 uIU/mL 0.300-4.20 0 [facility] Thyroid Stim Hormone (TSH)on 08-05-2024 TSH 2.110 uIU/mL Normal 0.300-4.20 0 [facility] Comment on above: Performed By: #### L 506.0400, L501.9520 ####[facility] [address] [place], [place], [id number] Total proteinOrdered By: Reji Conroy on 08-05-2024 Protein [Mass/Vol] 7.4 g/dL 5.9-8.4 [facility] Venous blood ammonia measure mentOrdered By: Kendall Conroy on 08-05-2024 Ammonia (P) [Moles/Vol] 39.3 umol/L 11-51 [facility] White blood cell (WBC) count Ordered By: Kendall Conroy on 08-05-2024 WBC (Bld) [#/Vol] 6.6 10*3/uL 4.4-11.0 [facility] lamoTRIgine [Mass/Vol]Ordere d By: Kendall Conroy on 08-05-2024 Lamotrigine (Lamictal) Level 16.3 ug/mL 2.0-20.0 [facility] Comment on above: Detection Limit = 1. 0Performed at: [facility] [id number] [place], [place] [id number] Director: Dakota Beal MD, Phone: [phone] Internal Medicine Office Vis iton 07-26-2024 Internal Medicine Office Visit Normal [facility] Neurology Visit Reporton Neurology Visit Report Normal [facility] Absolute neutrophil countOrd ered By: Kendall Conroy on 04-17-2024 Neutrophils (Bld) [#/Vol] 5.3 10*3/uL 2.0-7.7 [facility] Albumin to globulin ratioOrd ered By: Kendall Conroy on 04-17-2024 Albumin/Globulin [Mass ratio] 1.0 {ratio} 0.9-2.4 [facility] Ammoniaon 04-17-2024 Ammonia (P) [Moles/Vol] 33.0 umol/L High [facility] Comment on above: Performed By: #### L 100.0100, L503.5510, L500.4050 ####[facility] [address] [place], [address] Basophil percentageOrdered B y: Kendall Conroy on 04-17-2024 Basophils/100 WBC (Bld) 0.7 % 0- [facility] Bilirubin, totalOrdered By: Kendall Conroy on 04-17-2024 Bilirubin [Mass/Vol] 0.50 mg/dL 0.20-1.00 [facility] Comment on above: For patients on eltr ombopag therapy, use of Dimension [place] TBIL is not recommended. Blood urea nitrogen (BUN)/cr eatinine ratioOrdered By: Kendall Conroy on 04-17-2024 Urea nitrogen/Creatinine [Mass ratio] 11.0 mg/mg 10- [facility] CBC W/Diff, Automatedon 04-02 Absolute Lymph 1.36 X10 3/uL Normal 0.83-4.51 [facility] Comment on above: Performed By: #### L 100.0100, L503.5510, L500.4050 ####[facility] [address] [place], [address] Absolute Neut 5.3 X10 3/uL Normal 2.0-7.7 [facility] Comment on above: Performed By: #### L 100.0100, L503.5510, L500.4050 ####[facility] [address] [place], [address] Basophils/100 WBC (Bld) 0.7 % Normal 0-1 [facility] Comment on above: Performed By: #### L 100.0100, L503.5510, L500.4050 ####[facility] [address] [place], [address] Eosinophils/100 WBC (Bld) 1.9 % Normal 0-5 [facility] Comment on above: Performed By: #### L 100.0100, L503.5510, L500.4050 ####[facility] [address] [place], [address] Erythrocyte distribution width (RBC) [Ratio] 13.1 % Normal 11.6-14.6 [facility] Comment on above: Performed By: #### L 100.0100, L503.5510, L500.4050 ####[facility] [address] [place], [address] Hematocrit (Bld) [Volume fraction] 44.7 % Normal 37-47 [facility] Comment on above: Performed By: #### L 100.0100, L503.5510, L500.4050 ####[facility] [address] [place], [address] Hemoglobin (Bld) [Mass/Vol] 14.6 g/dL Normal 12.0-15.0 [facility] Comment on above: Performed By: #### L 100.0100, L503.5510, L500.4050 ####[facility] [address] [place], [address] IG% 0.300 Normal 0.0-0.9 [facility] Comment on above: Result Comment: IG% - Immature Granulocytes (promyelocytes, myelocytes andmetamyelocytes) > 1% indicates that a LEFT SHIFT is Present. Performed By: #### L 100.0100, L503.5510, L500.4050 ####[facility] [address] [place], [address] Lymphocytes/100 WBC (Bld) 18.7 % Low 19-41 [facility] Comment on above: Performed By: #### L 100.0100, L503.5510, L500.4050 ####[facility] [address] [place], [address] MCH (RBC) [Entitic mass] 28.6 pg Normal 27.0-32.0 [facility] Comment on above: Performed By: #### L 100.0100, L503.5510, L500.4050 ####[facility] [address] [place], [address] MCHC (RBC) [Mass/Vol] 32.7 g/dL Normal 32-36 [facility] Comment on above: Performed By: #### L 100.0100, L503.5510, L500.4050 ####[facility] [address] [place], [address] MCV (RBC) [Entitic vol] 87.5 fL Normal 81-99 [facility] Comment on above: Performed By: #### L 100.0100, L503.5510, L500.4050 ####[facility] [address] [place], [address] Monocytes/100 WBC (Bld) 6.2 % Normal 0-10 [facility] Comment on above: Performed By: #### L 100.0100, L503.5510, L500.4050 ####[facility] [address] [place], [address] Neutrophils/100 WBC (Bld) 72.2 % High 47-70 [facility] Comment on above: Performed By: #### L 100.0100, L503.5510, L500.4050 ####[facility] [address] [place], [address] Nucleated RBC (Bld) [#/Vol] 0 10*3/uL Normal 0-5 [facility] Comment on above: Performed By: #### L 100.0100, L503.5510, L500.4050 ####[facility] [address] [place], [address] Platelet mean volume (Bld) [Entitic vol] 9.1 fL Normal 6.2-12.0 [facility] Comment on above: Performed By: #### L 100.0100, L503.5510, L500.4050 ####[facility] [address] [place], [address] Platelets (Bld) [#/Vol] 284 10*3/uL Normal 150-450 [facility] Comment on above: Performed By: #### L 100.0100, L503.5510, L500.4050 ####[facility] [address] [place], [address] RBC (Bld) [#/Vol] 5.11 10*6/uL Normal 4.2-5.4 [facility] Comment on above: Performed By: #### L 100.0100, L503.5510, L500.4050 ####[facility] [address] [place], [address] RDW SD 41.7 fl Normal 35.1-43.9 [facility] Comment on above: Performed By: #### L 100.0100, L503.5510, L500.4050 ####[facility] [address] [place], [address] WBC (Bld) [#/Vol] 7.3 10*3/uL Normal 4.4-11.0 [facility] Comment on above: Performed By: #### L 100.0100, L503.5510, L500.4050 ####[facility] [address] [place], [address] Carbon dioxide measurementOr dered By: Kendall Conroy on 04-17-2024 CO2 [Moles/Vol] 21.0 mmol/L 21.0-32.0 [facility] Chloride measurementOrdered By: Kendall Conroy on 04-17-2024 Chloride [Moles/Vol] 112 mmol/L High 98-107 [facility] Comprehensive Metabolic Prof ilon 04-17-2024 Albumin [Mass/Vol] 4.1 g/dL Normal 3.2-5.0 [facility] Comment on above: Performed By: #### L 100.0100, L503.5510, L500.4050 ####[facility] [address] [place], [address] Albumin/Globulin [Mass ratio] 1.0 {ratio} Normal 0.9-2.4 [facility] Comment on above: Performed By: #### L 100.0100, L503.5510, L500.4050 ####[facility] [address] [place], [address] ALK P 111 U/L Normal 45-117 [facility] Comment on above: Performed By: #### L 100.0100, L503.5510, L500.4050 ####[facility] [address] [place], [address] ALT [Catalytic activity/Vol] 26 U/L Normal 13-56 [facility] Comment on above: Performed By: #### L 100.0100, L503.5510, L500.4050 ####[facility] [address] [place], [address] AST [Catalytic activity/Vol] 16 U/L Normal 15-37 [facility] Comment on above: Performed By: #### L 100.0100, L503.5510, L500.4050 ####[facility] [address] [place], [address] Bilirubin [Mass/Vol] 0.50 mg/dL Normal 0.20-1.00 [facility] Comment on above: Result Comment: For patients on eltrombopag therapy, use of Dimension [place] TBIL is not recommended. Performed By: #### L 100.0100, L503.5510, L500.4050 ####[facility] [address] [place], [address] BUN/CRE 11.0 RATIO Normal 10-20 [facility] Comment on above: Performed By: #### L 100.0100, L503.5510, L500.4050 ####[facility] [address] [place], [address] CA,Total 9.8 mg/dL Normal 8.5-10.1 [facility] Comment on above: Performed By: #### L 100.0100, L503.5510, L500.4050 ####[facility] [address] [place], [address] Chloride [Moles/Vol] 112 mmol/L High 98-107 [facility] Comment on above: Performed By: #### L 100.0100, L503.5510, L500.4050 ####[facility] [address] [place], [address] CO2 [Moles/Vol] 21.0 mmol/L Normal 21.0-32.0 [facility] Comment on above: Performed By: #### L 100.0100, L503.5510, L500.4050 ####[facility] [address] [place], [address] Creatinine [Mass/Vol] 0.91 mg/dL Normal 0.55-1.02 [facility] Comment on above: Result Comment: The validity of the calculated GFR GFRAA in patients over70 years has not been determined. Clinical correlation isessential. Performed By: #### L 100.0100, L503.5510, L500.4050 ####[facility] [address] [place], [address] EST GFR - AA 90 mL/min Normal >60 [facility] Comment on above: Result Comment: Afri can Guinean GFR Calc Performed By: #### L 100.0100, L503.5510, L500.4050 ####[facility] [address] [place], [address] GAP 7 Normal 5-15 [facility] Comment on above: Performed By: #### L 100.0100, L503.5510, L500.4050 ####[facility] [address] [place], [address] GFR/1.73 sq M.predicted among non-blacks MDRD (S/P/Bld) [Vol rate/Area] 74 mL/min/{1.73_m2} Normal >60 [facility] Comment on above: Result Comment: Non- GFR Calc Performed By: #### L 100.0100, L503.5510, L500.4050 ####[facility] [address] [place], [address] Globulin (S) [Mass/Vol] 4.0 g/dL Normal 2.2-4.2 [facility] Comment on above: Performed By: #### L 100.0100, L503.5510, L500.4050 ####[facility] [address] [place], [address] Glucose [Mass/Vol] 92 mg/dL Normal 74-106 [facility] Comment on above: Performed By: #### L 100.0100, L503.5510, L500.4050 ####[facility] [address] [place], [address] Potassium [Moles/Vol] 3.9 mmol/L Normal 3.5-5.1 [facility] Comment on above: Performed By: #### L 100.0100, L503.5510, L500.4050 ####[facility] [address] [place], [address] Sodium [Moles/Vol] 140 mmol/L Normal 136-145 [facility] Comment on above: Performed By: #### L 100.0100, L503.5510, L500.4050 ####[facility] [address] [place], [address] T PROT 8.1 g/dL Normal 6.4-8.2 [facility] Comment on above: Performed By: #### L 100.0100, L503.5510, L500.4050 ####[facility] [address] [place], [address] Urea nitrogen [Mass/Vol] 10 mg/dL Normal 7-18 [facility] Comment on above: Performed By: #### L 100.0100, L503.5510, L500.4050 ####[facility] [address] [place], [address] Eosinophil percentageOrdered By: Kendall Conroy on 04-17-2024 Eosinophils/100 WBC (Bld) 1.9 % 0-5 [facility] Erythrocyte distribution wid th ratioOrdered By: Kendall Conroy on 04-17-2024 Erythrocyte distribution width (RBC) [Ratio] 13.1 % 11.6-14.6 [facility] Erythrocyte distribution wid th standard deviationOrdered By: Kendall Conroy on 04-17-2024 Erythrocyte distribution width (RBC) [Entitic vol] 41.7 fL 35.1-43.9 [facility] Estimated glomerular filtrat ion rate (GFR) AmericanOrdered By: Kendall Conroy on 04-17-2024 Estimated GFR (MDRD) Amer 90 mL/min >60 [facility] Comment on above: GFR Calc Glomerular filtration rate ( GFR) estimationOrdered By: Kendall Conroy on 04-17-2024 Estimated GFR (MDRD) Non-Af Amer 74 mL/min >60 [facility] Comment on above: Non- GFR Calc Glucose measurementOrdered B y: Kendall Conroy on 04-17-2024 Glucose [Mass/Vol] 92 mg/dL 74-106 [facility] Hematocrit Auto (Bld) [Volum e fraction]Ordered By: Kendall Conroy on 04-17-2024 Hematocrit (Bld) [Volume fraction] 44.7 % 37-47 [facility] Hemoglobin measurementOrdere d By: Kendall Conroy on 04-17-2024 Hemoglobin (Bld) [Mass/Vol] 14.6 g/dL 12.0-15.0 [facility] Immature granulocytes/100 WB C Auto (Bld)Ordered By: Kendall Conroy 04-17-2024 Immature granulocytes/100 WBC (Bld) 0.300 % 0.0-0.9 [facility] Comment on above: IG% - Immature Granu locytes (promyelocytes, myelocytes and metamyelocytes) > 1% indicates that a LEFT SHIFT is Present. Laboratory - Chemistry and C hemistry - challengeOrdered By: Kendall Conroy on 04-17-2024 AST [Catalytic activity/Vol] 16 U/L 15-37 [facility] Lymphocytes Auto (Unsp spec) [#/Vol]Ordered By: Kendall Conroy on 04-17-2024 Lymphocytes (Bld) [#/Vol] 1.36 10*3/uL 0.83-4.51 [facility] Lymphocytes/100 WBC Auto (Un sp spec)Ordered By: Kendall Conroy 04-17-2024 Lymphocytes/100 WBC (Bld) 18.7 % Low 19-41 [facility] MCV (mean corpuscular volume ) determinationOrdered By: Kendall Conroy on 04-17-2024 MCV (RBC) [Entitic vol] 87.5 fL 81-99 [facility] Mean corpuscular hemoglobin (MCH) determinationOrdered By: Kendall Conroy on 04-17-2024 MCH (RBC) [Entitic mass] 28.6 pg 27.0-32.0 [facility] Mean corpuscular hemoglobin concentration (MCHC) determinationOrdered By: Kendall Conroy on 04-17-2024 MCHC (RBC) [Mass/Vol] 32.7 g/dL 32-36 [facility] Mean platelet volume determi nationOrdered By: Kendall Conroy on 04-17-2024 Platelet mean volume (Bld) [Entitic vol] 9.1 fL 6.2-12.0 [facility] Monocyte percentageOrdered B y: Kendall Conroy on 04-17-2024 Monocytes/100 WBC (Bld) 6.2 % 0-10 [facility] Neutrophil percentageOrdered By: Kendall Conroy on 04-17-2024 Neutrophils/100 WBC (Bld) 72.2 % High 47-70 [facility] Nucleated red blood cell per centageOrdered By: Kendall Conroy on 04-17-2024 Nucleated RBC/100 WBC (Bld) [Ratio] 0 % 0-5 [facility] Platelet countOrdered By: Ra torey Conroy on 04-17-2024 Platelets (Bld) [#/Vol] 284 10*3/uL 150-450 [facility] Potassium measurementOrdered By: Kendall Conroy on 04-17-2024 Potassium [Moles/Vol] 3.9 mmol/L 3.5-5.1 [facility] RBC Auto (Bld) [#/Vol]Ordere d By: Kendall Conroy on 04-17-2024 RBC (Bld) [#/Vol] 5.11 10*6/uL 4.2-5.4 [facility] Serum anion gap measurementO rdered By: Kendall Conroy 04-17-2024 Anion gap [Moles/Vol] 7 mmol/L 5-15 [facility] Serum globulin measurementOr dered By: Kendall Conroy on 04-17-2024 Globulin (S) [Mass/Vol] 4.0 g/dL 2.2-4.2 [facility] Serum or plasma alanine diallo otransferase (ALT) measurementOrdered By: Kendall Conroy on 04-17-2024 ALT [Catalytic activity/Vol] 26 U/L 13-56 [facility] Serum or plasma albumin traci urement (mass/volume)Ordered By: Kendall Conroy on 04-17-2024 Albumin [Mass/Vol] 4.1 g/dL 3.2-5.0 [facility] Serum or plasma alkaline abby sphatase measurementOrdered By: Kendall Conroy on 04-17-2024 ALP [Catalytic activity/Vol] 111 U/L 45-117 [facility] Serum or plasma calcium traci urement (mass/volume)Ordered By: Kendall Conroy 04-17-2024 Calcium [Mass/Vol] 9.8 mg/dL 8.5-10.1 [facility] Serum or plasma creatinine m easurement (mass/volume)Ordered By: Kendall Conroy on 04-17-2024 Creatinine [Mass/Vol] 0.91 mg/dL 0.55-1.02 [facility] Comment on above: The validity of the calculated GFR & GFRAA in patients over 70 years has not been determined. Clinical correlation is essential. Serum or plasma urea nitroge n measurement (mass/volume)Ordered By: Kendall Conroy on 04-17-2024 Urea nitrogen [Mass/Vol] 10 mg/dL 7-18 [facility] Sodium levelOrdered By: Chas Conroy on 04-17-2024 Sodium [Moles/Vol] 140 mmol/L 136-145 [facility] Total proteinOrdered By: Reji Conroy on 04-17-2024 Protein [Mass/Vol] 8.1 g/dL 6.4-8.2 [facility] Venous blood ammonia measure mentOrdered By: Kendall Conroy on 04-17-2024 Ammonia (P) [Moles/Vol] 33.0 umol/L High 11-32 [facility] White blood cell (WBC) count Ordered By: Kendall Conroy on 04-17-2024 WBC (Bld) [#/Vol] 7.3 10*3/uL 4.4-11.0 [facility] Neurology Visit Reporton Neurology Visit Report Normal [facility] Miscellaneous Lab [facility]o n [facility]17[facility]20[facility] Comment on above: Order Comment: DAMIR Velez [id number] ZONISAMIDE Result Comment: TEST RESULTS LIMITSZonisamide(Zonegran), Serum Zonisamide 31.8 ug/mL 10.0-40.0 Detection Limit = 2.0 [facility] ORIGINAL REPORT ON FILE IN LAB CONTAINS ADDITIONAL TEST SITE INFORMATION. Performed By: #### L 801.1541, L3502.4404 ####[facility] [address] [place], [place], [id number] Lamotrigine (Lamictal) Level on 03-15-2024 LAMOTRIGINE 7.6 ug/mL Normal 2.0-20.0 [facility] Comment on above: Result Comment: Dete ction Limit = 1.0Performed at: [facility] [address] [id number] Director: Dakota Beal MD, Phone: [phone] Performed By: #### L 801.1541, L3300.4400 ####[facility] [address] [place], [place], [id number] CNOVon 10-11-2023 CNOV Office Visit (UCWSTR ) -------- DOUG FLANAGAN ([id number]) 1990 F Date Time Provider Department 10/11/23 9:00 AM [facility] During your visit today, we recorded the following information about you: Temperature Pulse Respiration Blood pressure 97.3 degrees 102/minute 16/minute 120/80 Weight 75 kg Maya Puente APRN.SUPERVISOR TYPESETTING 10/11/2023 9:46 AM Signed Subjective HPI HPI [...] 9 years of age Fell off the Curves; lost consciousness 3-5 minutes PAST SURGICAL HISTORY Procedure Laterality Date APPENDECTOMY COLONOSCOPY 04/08/2022 No repeat due to age CONIZATION OF CERVIX; COLD KNIFE/LASER 10/17/2021 Paragard removal, Mirena IUD insertion HIP SURGERY HX Right INSJ TUNNELED CTR VAD W/SUBQ PORT AGE 3 YR/> 10/16/2020 LEEP PROCEDURE (INSURANCE ADVISER DEPT)_*FL THYMECTOMY, PARTIAL/TOTAL total ALLERGIES Ciprofloxacin, Compazine [...] ear normal. Nose: Nose normal. Mouth/Throat: Lips: [place]. Mouth: Mucous membranes are moist. Pharynx: Uvula [...] Pulmonary eff (more content not included)... Normal [facility] STREP A MOLECULAR (POC)on Procedural Control Valid [facility] Strep A (POCT) Negative Negative [facility] CBC AND ELECTRONIC DIFFon Basophils (Bld) [#/Vol] 0.04 10*3/uL Normal 0.00-0.15 [facility] Comment on above: Performed By: #### L AB980 #### [facility] (DEFAULT) [address] [address] Basophils/100 WBC (Bld) 0.6 % Normal [facility] Comment on above: Performed By: #### L AB980 #### [facility] (DEFAULT) [address] [place] [address] DIFF STATUS Electronic Differential Normal [facility] Comment on above: Performed By: #### L AB980 #### [facility] (DEFAULT) [address] [address] Eosinophils (Bld) [#/Vol] 0.11 10*3/uL Normal 0.00-0.42 [facility] Comment on above: Performed By: #### L AB980 #### [facility] (DEFAULT) [address] [address] Eosinophils/100 WBC (Bld) 1.6 % Normal [facility] Comment on above: Performed By: #### L AB980 #### [facility] (DEFAULT) [address] [place] [address] Hematocrit (Bld) [Volume fraction] 44.2 % Normal 34.9-44.3 [facility] Comment on above: Performed By: #### L AB980 #### [facility] (DEFAULT) [address] [address] Hemoglobin (Bld) [Mass/Vol] 14.2 g/dL Normal 11.4-15.2 [facility] Comment on above: Performed By: #### L AB980 #### [facility] (DEFAULT) [address] [address] Immature Grans % 0.3 % Normal [facility] Comment on above: Performed By: #### L AB980 #### [facility] (DEFAULT) [address] [address] Immature Grans Absolute < Normal <=0.08 [facility] Comment on above: Performed By: #### L AB980 #### [facility] (DEFAULT) [address] [address] Lymphocytes (Bld) [#/Vol] 1.71 10*3/uL Normal 1.16-3.51 [facility] Comment on above: Performed By: #### L AB980 #### [facility] (DEFAULT) [address] [address] Lymphocytes/100 WBC (Bld) 24.4 % Normal [facility] Comment on above: Performed By: #### L AB980 #### [facility] (DEFAULT) [address] [place] [address] MCV (RBC) [Entitic vol] 86.3 fL Normal 79.6-97.7 [facility] Comment on above: Performed By: #### L AB980 #### [facility] (DEFAULT) [address] [address] Mean Cell Hgb 27.7 pg Normal 25.9-33.9 [facility] Comment on above: Performed By: #### L AB980 #### [facility] (DEFAULT) [address] [address] Mean Cell Hgb Conc 32.1 g/dL Normal 31.4-35.9 [facility] Comment on above: Performed By: #### L AB980 #### [facility] (DEFAULT) [address] [address] Monocytes (Bld) [#/Vol] 0.49 10*3/uL Normal 0.22-0.87 [facility] Comment on above: Performed By: #### L AB980 #### [facility] (DEFAULT) [address] [address] Monocytes/100 WBC (Bld) 7.0 % Normal [facility] Comment on above: Performed By: #### L AB980 #### [facility] (DEFAULT) [address] [address] Nucleated RBC 0.0 /100 WBC Normal <=0.2 [facility] Comment on above: Performed By: #### L AB980 #### [facility] (DEFAULT) [address] [address] Platelet mean volume (Bld) [Entitic vol] 10.0 fL Normal 8.5-12.2 [facility] Comment on above: Performed By: #### L AB980 #### [facility] (DEFAULT) [address] [address] Platelets (Bld) [#/Vol] 282 10*3/uL Normal 150-393 [facility] Comment on above: Performed By: #### L AB980 #### [facility] (DEFAULT) [address] [place] [address] RBC (Bld) [#/Vol] 5.12 10*6/uL High 3.91-5.04 [facility] Comment on above: Performed By: #### L AB980 #### [facility] (DEFAULT) [address] [place] [address] RBC Distribution 13.9 % Normal 10.8-14.9 [facility] Comment on above: Performed By: #### L AB980 #### [facility] (DEFAULT) [address] [place] [address] Segs + Bands Auto 66.1 % Normal [facility] Comment on above: Performed By: #### L AB980 #### [facility] (DEFAULT) [address] [place] [address] Segs + Bands,Absolute Auto 4.63 K/uL Normal 1.64-7.28 [facility] Comment on above: Performed By: #### L AB980 #### [facility] (DEFAULT) [address] [place] [address] WBC (Bld) [#/Vol] 7.00 10*3/uL Normal 3.99-11.19 [facility] Comment on above: Performed By: #### L AB980 #### [facility] (DEFAULT) [address] [place] [address] CMPN WITHOUT GLUCOSEon 08-11 Albumin [Mass/Vol] 4.8 g/dL 3.5 - 5.0 g/dL [facility] ALP [Catalytic activity/Vol] 100 U/L 32 - 126 U/L [facility] ALT [Catalytic activity/Vol] 17 U/L 9 - 48 U/L [facility] Anion gap [Moles/Vol] 16 mmol/L 7 - 17 mmol/L [facility] AST [Catalytic activity/Vol] 18 U/L 10 - 39 U/L [facility] Bilirubin [Mass/Vol] 0.4 mg/dL NINF - 1.5 mg/dL [facility] Calcium [Mass/Vol] 10.1 mg/dL 8.6 - 10. 5 mg/dL [facility] Chloride [Moles/Vol] 106 mmol/L 98 - 10 8 mmol/L [facility] CO2 [Moles/Vol] 22 mmol/L 21 - 31 mmol/L [facility] Creatinine [Mass/Vol] 0.82 mg/dL 0.50 - 1.20 mg/dL [facility] eGFR, CKD-EPI, Female - PINF [facility] Comment on above: Reported eGFR is bas ed on the CKD-EPI 2020 equation using creatinine, age, and sex. Potassium [Moles/Vol] 3.8 mmol/L 3.5 - 5.0 mmol/L [facility] Protein [Mass/Vol] 7.9 g/dL 6.4 - 8.3 g/dL [facility] Sodium [Moles/Vol] 140 mmol/L 135 - 145 mmol/L [facility] Urea nitrogen [Mass/Vol] 10 mg/dL 7 - 25 mg/dL [facility] Urea nitrogen/Creatinine [Mass ratio] 12 mg/mg [facility] [place] Albumin [Mass/Vol] 4.8 g/dL Normal 3.5-5.0 [facility] Comment on above: Performed By: #### C MPNG #### [facility] (DEFAULT) [address] [place] [address] ALP [Catalytic activity/Vol] 100 U/L Normal 32-126 [facility] Comment on above: Performed By: #### C MPNG #### [facility] (DEFAULT) [address] [place] [address] ALT [Catalytic activity/Vol] 17 U/L Normal 9-48 [facility] Comment on above: Performed By: #### C MPNG #### [facility] (DEFAULT) [address] [place] [address] Anion gap [Moles/Vol] 16 mmol/L Normal 7-17 [facility] Comment on above: Performed By: #### C MPNG #### [facility] (DEFAULT) [address] [place] [address] 92692 AST [Catalytic activity/Vol] 18 U/L Normal 10-39 [facility] Comment on above: Performed By: #### C MPNG #### [facility] (DEFAULT) [address] [place] [address] 88658 Bilirubin [Mass/Vol] 0.4 mg/dL Normal <1.5 [facility] Comment on above: Performed By: #### C MPNG #### [facility] (DEFAULT) [address] [place] [address] 97634 Calcium [Mass/Vol] 10.1 mg/dL Normal 8.6-10.5 [facility] Comment on above: Performed By: #### C MPNG #### [facility] (DEFAULT) [address] [place] [address] 30733 Chloride [Moles/Vol] 106 mmol/L Normal 98-108 [facility] Comment on above: Performed By: #### C MPNG #### [facility] (DEFAULT) [address] [place] [address] 05944 CO2 [Moles/Vol] 22 mmol/L Normal 21-31 [facility] Comment on above: Performed By: #### C MPNG #### [facility] (DEFAULT) [address] [place] [address] 87041 Creatinine [Mass/Vol] 0.82 mg/dL Normal 0.50-1.20 [facility] Comment on above: Performed By: #### C MPNG #### [facility] (DEFAULT) [address] [place] [address] 88725 eGFR, CKD-EPI, Female > Normal >=60 [facility] Comment on above: Result Comment: Repo rted eGFR is based on the CKD-EPI 2020 equation using creatinine, age, and sex. Performed By: #### C MPNG #### [facility] (DEFAULT) [address] [place] [address] 79145 Potassium [Moles/Vol] 3.8 mmol/L Normal 3.5-5.0 [facility] Comment on above: Performed By: #### C MPNG #### [facility] (DEFAULT) [address] [place] [address] 94867 Protein [Mass/Vol] 7.9 g/dL Normal 6.4-8.3 [facility] Comment on above: Performed By: #### C MPNG #### [facility] (DEFAULT) [address] [place] [address] 48256 Sodium [Moles/Vol] 140 mmol/L Normal 135-145 [facility] Comment on above: Performed By: #### C MPNG #### [facility] (DEFAULT) [address] [place] [address] 90666 Urea nitrogen [Mass/Vol] 10 mg/dL Normal 7-25 [facility] Comment on above: Performed By: #### C MPNG #### [facility] (DEFAULT) [address] [place] [address] 60006 Urea nitrogen/Creatinine [Mass ratio] 12 mg/mg Normal [facility] Comment on above: Performed By: #### C MPNG #### [facility] (DEFAULT) [address] [place] [address] 68205 CBC AND ELECTRONIC DIFFon Basophils (Bld) [#/Vol] 0.05 10*3/uL 0.00 - 0.15 K/uL [facility] Basophils/100 WBC (Bld) 0.7 % [facility] Differential cell count method Nom (Bld) Electronic Differential [facility] Eosinophils (Bld) [#/Vol] 0.11 10*3/uL 0.00 - 0.42 K/uL [facility] Eosinophils/100 WBC (Bld) 1.6 % [facility] Erythrocyte distribution width (RBC) [Ratio] 13.5 % 10.8 - 14.9 % [facility] Hematocrit (Bld) [Volume fraction] 41.6 % 34.9 - 44.3 % [facility] Hemoglobin (Bld) [Mass/Vol] 13.2 g/dL 11.4 - 15.2 g/dL [facility] Immature granulocytes (Bld) [#/Vol] K/uL NINF - 0.08 K/uL [facility] Immature granulocytes/100 WBC (Bld) 0.3 % [facility] Lymphocytes (Bld) [#/Vol] 1.66 10*3/uL 1.16 - 3.51 K/uL [facility] Lymphocytes/100 WBC (Bld) 23.7 % [facility] MCH (RBC) [Entitic mass] 26.5 pg 25.9 - 33.9 pg [facility] MCHC (RBC) [Mass/Vol] 31.7 g/dL 31.4 - 35.9 g/dL [facility] MCV (RBC) [Entitic vol] 83.5 fL 79.6 - 97.7 fL [facility] Monocytes (Bld) [#/Vol] 0.34 10*3/uL 0.22 - 0.87 K/uL [facility] Monocytes/100 WBC (Bld) 4.9 % [facility] Neutrophils (Bld) [#/Vol] 4.81 10*3/uL 1.64 - 7.28 K/uL [facility] Nucleated RBC/100 WBC (Bld) [Ratio] 0.0 % [facility] Platelet mean volume (Bld) [Entitic vol] 10.3 fL 8.5 - 12.2 fL [facility] Platelets (Bld) [#/Vol] 346 10*3/uL 150 - 393 K/uL [facility] RBC (Bld) [#/Vol] 4.98 10*6/uL [facility] Segmented neutrophils/100 WBC (Bld) 68.8 % [facility] WBC (Bld) [#/Vol] 6.99 10*3/uL 3.99 - 11.19 K/uL [facility] Basophils (Bld) [#/Vol] 0.05 10*3/uL Normal 0.00-0.15 [facility] Comment on above: Order Comment: To be collected prior to each infusion while receiving Ravulizumab Performed By: #### L [id number] #### [facility] (DEFAULT) [address] [address] Basophils/100 WBC (Bld) 0.7 % Normal [facility] Comment on above: Order Comment: To be collected prior to each infusion while receiving Ravulizumab Performed By: #### L [id number] #### [facility] (DEFAULT) [address] [address] DIFF STATUS Electronic Differential Normal [facility] Comment on above: Order Comment: To be collected prior to each infusion while receiving Ravulizumab Performed By: #### L [id number] #### [facility] (DEFAULT) [address] [address] Eosinophils (Bld) [#/Vol] 0.11 10*3/uL Normal 0.00-0.42 [facility] Comment on above: Order Comment: To be collected prior to each infusion while receiving Ravulizumab Performed By: #### L [id number] #### [facility] (DEFAULT) [address] [address] Eosinophils/100 WBC (Bld) 1.6 % Normal [facility] Comment on above: Order Comment: To be collected prior to each infusion while receiving Ravulizumab Performed By: #### L [id number] #### [facility] (DEFAULT) [address] [address] Hematocrit (Bld) [Volume fraction] 41.6 % Normal 34.9-44.3 [facility] Comment on above: Order Comment: To be collected prior to each infusion while receiving Ravulizumab Performed By: #### L [id number] #### [facility] (DEFAULT) [address] [address] Hemoglobin (Bld) [Mass/Vol] 13.2 g/dL Normal 11.4-15.2 [facility] Comment on above: Order Comment: To be collected prior to each infusion while receiving Ravulizumab Performed By: #### L [id number] #### [facility] (DEFAULT) [address] [place] [address] 14261 Immature Grans % 0.3 % Normal [facility] Comment on above: Order Comment: To be collected prior to each infusion while receiving Ravulizumab Performed By: #### L [id number] #### [facility] (DEFAULT) [address] [address] Immature Grans Absolute < Normal <=0.08 [facility] Comment on above: Order Comment: To be collected prior to each infusion while receiving Ravulizumab Performed By: #### L [id number] #### [facility] (DEFAULT) [address] [place] [address]93 Lymphocytes (Bld) [#/Vol] 1.66 10*3/uL Normal 1.16-3.51 [facility] Comment on above: Order Comment: To be collected prior to each infusion while receiving Ravulizumab Performed By: #### L [id number] #### [facility] (DEFAULT) [address] [address] Lymphocytes/100 WBC (Bld) 23.7 % Normal [facility] Comment on above: Order Comment: To be collected prior to each infusion while receiving Ravulizumab Performed By: #### L [id number] #### [facility] (DEFAULT) [address] [address] MCV (RBC) [Entitic vol] 83.5 fL Normal 79.6-97.7 [facility] Comment on above: Order Comment: To be collected prior to each infusion while receiving Ravulizumab Performed By: #### L [id number] #### [facility] (DEFAULT) [address] [address] Mean Cell Hgb 26.5 pg Normal 25.9-33.9 [facility] Comment on above: Order Comment: To be collected prior to each infusion while receiving Ravulizumab Performed By: #### L [id number] #### [facility] (DEFAULT) [address] [address] Mean Cell Hgb Conc 31.7 g/dL Normal 31.4-35.9 [facility] Comment on above: Order Comment: To be collected prior to each infusion while receiving Ravulizumab Performed By: #### L [id number] #### [facility] (DEFAULT) [address] [address] Monocytes (Bld) [#/Vol] 0.34 10*3/uL Normal 0.22-0.87 [facility] Comment on above: Order Comment: To be collected prior to each infusion while receiving Ravulizumab Performed By: #### L [id number] #### [facility] (DEFAULT) [address] [address] Monocytes/100 WBC (Bld) 4.9 % Normal [facility] Comment on above: Order Comment: To be collected prior to each infusion while receiving Ravulizumab Performed By: #### L [id number] #### [facility] (DEFAULT) [address] [address] Nucleated RBC 0.0 /100 WBC Normal <=0.2 [facility] Comment on above: Order Comment: To be collected prior to each infusion while receiving Ravulizumab Performed By: #### L [id number] #### [facility] (DEFAULT) [address] [address] Platelet mean volume (Bld) [Entitic vol] 10.3 fL Normal 8.5-12.2 [facility] Comment on above: Order Comment: To be collected prior to each infusion while receiving Ravulizumab Performed By: #### L [id number] #### [facility] (DEFAULT) [address] [address] Platelets (Bld) [#/Vol] 346 10*3/uL Normal 150-393 [facility] Comment on above: Order Comment: To be collected prior to each infusion while receiving Ravulizumab Performed By: #### L [id number] #### [facility] (DEFAULT) [address] [place] [address] 90991 RBC (Bld) [#/Vol] 4.98 10*6/uL Normal 3.91-5.04 [facility] Comment on above: Order Comment: To be collected prior to each infusion while receiving Ravulizumab Performed By: #### L [id number] #### [facility] (DEFAULT) [address] [address] RBC Distribution 13.5 % Normal 10.8-14.9 [facility] Comment on above: Order Comment: To be collected prior to each infusion while receiving Ravulizumab Performed By: #### L [id number] #### [facility] (DEFAULT) [address] [address] Segs + Bands Auto 68.8 % Normal [facility] Comment on above: Order Comment: To be collected prior to each infusion while receiving Ravulizumab Performed By: #### L [id number] #### [facility] (DEFAULT) [address] [address] Segs + Bands,Absolute Auto 4.81 K/uL Normal 1.64-7.28 [facility] Comment on above: Order Comment: To be collected prior to each infusion while receiving Ravulizumab Performed By: #### L [id number] #### [facility] (DEFAULT) [address] [address] WBC (Bld) [#/Vol] 6.99 10*3/uL Normal 3.99-11.19 [facility] Comment on above: Order Comment: To be collected prior to each infusion while receiving Ravulizumab Performed By: #### L [id number] #### [facility] (DEFAULT) [address] [place] [address] CMPN WITHOUT GLUCOSEon 02-12 Albumin [Mass/Vol] 4.5 g/dL 3.5 - 5.0 g/dL [facility] ALP [Catalytic activity/Vol] 92 U/L 32 - 126 U/L [facility] ALT [Catalytic activity/Vol] 14 U/L 9 - 48 U/L [facility] Anion gap [Moles/Vol] 15 mmol/L 7 - 17 mmol/L [facility] AST [Catalytic activity/Vol] 14 U/L 10 - 39 U/L [facility] Bilirubin [Mass/Vol] 0.3 mg/dL NINF - 1.5 mg/dL [facility] Calcium [Mass/Vol] 9.4 mg/dL 8.6 - 10. 5 mg/dL [facility] Chloride [Moles/Vol] 108 mmol/L 98 - 10 8 mmol/L [facility] CO2 [Moles/Vol] 22 mmol/L 21 - 31 mmol/L [facility] Creatinine [Mass/Vol] 0.91 mg/dL 0.50 - 1.20 mg/dL [facility] eGFR, CKD-EPI, Female 85 - PINF [facility] Comment on above: Reported eGFR is bas ed on the CKD-EPI 2020 equation using creatinine, age, and sex. Potassium [Moles/Vol] 3.6 mmol/L 3.5 - 5.0 mmol/L [facility] Protein [Mass/Vol] 7.7 g/dL 6.4 - 8.3 g/dL [facility] Sodium [Moles/Vol] 141 mmol/L 135 - 145 mmol/L [facility] Urea nitrogen [Mass/Vol] 10 mg/dL 7 - 25 mg/dL [facility] Urea nitrogen/Creatinine [Mass ratio] 11 mg/[facility] Albumin [Mass/Vol] 4.5 g/dL Normal 3.5-5.0 [facility] Comment on above: Order Comment: To be collected prior to each infusion while receiving Ravulizumab Performed By: #### C MPNG #### [facility] (DEFAULT) [address] [place] [address] ALP [Catalytic activity/Vol] 92 U/L Normal 32-126 [facility] Comment on above: Order Comment: To be collected prior to each infusion while receiving Ravulizumab Performed By: #### C MPNG #### [facility] (DEFAULT) [address] [place] [address] 06091 ALT [Catalytic activity/Vol] 14 U/L Normal 9-48 [facility] Comment on above: Order Comment: To be collected prior to each infusion while receiving Ravulizumab Performed By: #### C MPNG #### [facility] (DEFAULT) [address] [place] [address]683 Anion gap [Moles/Vol] 15 mmol/L Normal 7-17 [facility] Comment on above: Order Comment: To be collected prior to each infusion while receiving Ravulizumab Performed By: #### C MPNG #### [facility] (DEFAULT) [address] [place] [address] 17008 AST [Catalytic activity/Vol] 14 U/L Normal 10-39 [facility] Comment on above: Order Comment: To be collected prior to each infusion while receiving Ravulizumab Performed By: #### C MPNG #### [facility] (DEFAULT) [address] [place] [address] 97917 Bilirubin [Mass/Vol] 0.3 mg/dL Normal <1.5 [facility] Comment on above: Order Comment: To be collected prior to each infusion while receiving Ravulizumab Performed By: #### C MPNG #### [facility] (DEFAULT) [address] [place] [address] 07201 Calcium [Mass/Vol] 9.4 mg/dL Normal 8.6-10.5 [facility] Comment on above: Order Comment: To be collected prior to each infusion while receiving Ravulizumab Performed By: #### C MPNG #### [facility] (DEFAULT) [address] [place] [address] 59880 Chloride [Moles/Vol] 108 mmol/L Normal 98-108 [facility] Comment on above: Order Comment: To be collected prior to each infusion while receiving Ravulizumab Performed By: #### C MPNG #### [facility] (DEFAULT) [address] [place] [address]1937 CO2 [Moles/Vol] 22 mmol/L Normal 21-31 [facility] Comment on above: Order Comment: To be collected prior to each infusion while receiving Ravulizumab Performed By: #### C MPNG #### [facility] (DEFAULT) [address] [place] [address] Creatinine [Mass/Vol] 0.91 mg/dL Normal 0.50-1.20 [facility] Comment on above: Order Comment: To be collected prior to each infusion while receiving Ravulizumab Performed By: #### C MPNG #### [facility] (DEFAULT) [address] [place] [address] GFR/1.73 sq M.predicted among non-blacks MDRD (S/P/Bld) [Vol rate/Area] 85 mL/min/{1.73_m2} Normal >=60 [facility] Comment on above: Order Comment: To be collected prior to each infusion while receiving Ravulizumab Result Comment: Repo rted eGFR is based on the CKD-EPI 1 equation using creatinine, age, and sex. Performed By: #### C MPNG #### [facility] (DEFAULT) [address] [place] [address] Potassium [Moles/Vol] 3.6 mmol/L Normal 3.5-5.0 [facility] Comment on above: Order Comment: To be collected prior to each infusion while receiving Ravulizumab Performed By: #### C MPNG #### [facility] (DEFAULT) [address] [place] [address] 01002 Protein [Mass/Vol] 7.7 g/dL Normal 6.4-8.3 [facility] Comment on above: Order Comment: To be collected prior to each infusion while receiving Ravulizumab Performed By: #### C MPNG #### [facility] (DEFAULT) [address] [address] Sodium [Moles/Vol] 141 mmol/L Normal 135-145 [facility] Comment on above: Order Comment: To be collected prior to each infusion while receiving Ravulizumab Performed By: #### C MPNG #### [facility] (DEFAULT) [address] [address] Urea nitrogen [Mass/Vol] 10 mg/dL Normal 7-25 [facility] Comment on above: Order Comment: To be collected prior to each infusion while receiving Ravulizumab Performed By: #### C MPNG #### [facility] (DEFAULT) [address] [place] [address] Urea nitrogen/Creatinine [Mass ratio] 11 mg/mg Normal [facility] Comment on above: Order Comment: To be collected prior to each infusion while receiving Ravulizumab Performed By: #### C MPNG #### [facility] (DEFAULT) [address] [address] No Panel Informationon 12-19 Miscellaneous Test See comment [facility] Comment on above: TEST RESULT LIMITSLa motrigine, Serum 8.5 ug/mL 2.0-20.0 Detection Limit = 1.0 TESTING PERFORMED AT [facility]. ORIGINAL REPORT ON FILE IN LAB CONTAINS ADDITIONAL TEST SITE INFORMATION. CBC,PLATELETSon 11-02-2022 Hematocrit (Bld) [Volume fraction] 35.8 % Normal 34.9-44.3 [facility] Comment on above: Performed By: #### H EMOGC #### [facility] (DEFAULT) [address] [place] [address] Hemoglobin (Bld) [Mass/Vol] 11.7 g/dL Normal 11.4-15.2 [facility] Comment on above: Performed By: #### H EMOGC #### [facility] (DEFAULT) [address] [place] [address] MCV (RBC) [Entitic vol] 83.3 fL Normal 79.6-97.7 [facility] Comment on above: Performed By: #### H EMOGC #### [facility] (DEFAULT) [address] [place] [address]279 Mean Cell Hgb 27.2 pg Normal 25.9-33.9 [facility] Comment on above: Performed By: #### H EMOGC #### [facility] (DEFAULT) [address] [place] [address] 20141 Mean Cell Hgb Conc 32.7 g/dL Normal 31.4-35.9 [facility] Comment on above: Performed By: #### H EMOGC #### [facility] (DEFAULT) [address] [place] [address] Platelet mean volume (Bld) [Entitic vol] 9.3 fL Normal 8.5-12.2 [facility] Comment on above: Performed By: #### H EMOGC #### [facility] (DEFAULT) [address] [place] [address] Platelets (Bld) [#/Vol] 267 10*3/uL Normal 150-393 [facility] Comment on above: Performed By: #### H EMOGC #### [facility] (DEFAULT) [address] [place] [address] 29033 RBC (Bld) [#/Vol] 4.30 10*6/uL Normal 3.91-5.04 [facility] Comment on above: Performed By: #### H [facility] #### [facility] (DEFAULT) [address] [place] [address]8788 RBC Distribution 13.5 % Normal 10.8-14.9 [facility] Comment on above: Performed By: #### H EMO #### [facility] (DEFAULT) [address] [place] [address] WBC (Bld) [#/Vol] 6.95 10*3/uL Normal 3.99-11.19 [facility] Comment on above: Performed By: #### H [facility] #### [facility] (DEFAULT) [address] [place] [address]31 CHEM 7 (LYTES,BUN,CREA,GLUC) on 11-02-2022 Anion gap [Moles/Vol] 11 mmol/L Normal 7-17 [facility] Comment on above: Performed By: #### M INGRID CHM7 #### [facility] (DEFAULT) [address] [place] [address] Chloride [Moles/Vol] 108 mmol/L Normal 98-108 [facility] Comment on above: Performed By: #### M INGRID, CHM7 #### [facility] (DEFAULT) [address] [place] [address] CO2 [Moles/Vol] 24 mmol/L Normal 21-31 [facility] Comment on above: Performed By: #### M INGRID, CHM7 #### [facility] (DEFAULT) [address] [place] [address] Creatinine [Mass/Vol] 0.76 mg/dL Normal 0.50-1.20 [facility] Comment on above: Performed By: #### M GO, CHM7 #### [facility] (DEFAULT) [address] [place] [address] 7[address]88 eGFR, CKD-EPI, Female > Normal >=60 [facility] Comment on above: Result Comment: Repo rted eGFR is based on the CKD-EPI 2020 equation using creatinine, age, and sex. Performed By: #### SHEILA SPIVEY7 #### [facility] (DEFAULT) [address] [place] [address]10 Glucose [Mass/Vol] 91 mg/dL Normal 70-99 [facility] Comment on above: Performed By: #### SHEILA SPIVEY7 #### [facility] (DEFAULT) [address] [place] [address] Osmolality [Osmolality] 291 mosm/kg Normal 278-305 [facility] Comment on above: Performed By: #### SHEILA SPIVEY7 #### [facility] (DEFAULT) [address] [place] [address] Potassium [Moles/Vol] 3.7 mmol/L Normal 3.5-5.0 [facility] Comment on above: Performed By: #### FATUMA SPIVEY #### [facility] (DEFAULT) [address] [place] [address] Sodium [Moles/Vol] 139 mmol/L Normal 135-145 [facility] Comment on above: Performed By: #### SHEILA SPIVEY7 #### [facility] (DEFAULT) [address] [place] [address]3575 Urea nitrogen [Mass/Vol] 17 mg/dL Normal 7-25 [facility] Comment on above: Performed By: #### SHEILA SPIVEY7 #### [facility] (DEFAULT) [address] [place] [address] 83543 Urea nitrogen/Creatinine [Mass ratio] 22 mg/mg Normal [facility] Comment on above: Performed By: #### SHEILA SPIVEY7 #### [facility] (DEFAULT) [address] [place] [address] Laboratory - Chemistry and C hemistry - challengeon 11-02-2022 Vitamin D+Metabolites [Mass/Vol] 11.7 ng/mL Low 30.0 - 100.0 ng/mL [facility] Comment on above: <10 Deficiency 10-29 Insufficiency 30-100 Optimal Level >100 Possible Toxicity Anion gap [Moles/Vol] 11 mmol/L 7 - 17 mmol/L [facility] Chloride [Moles/Vol] 108 mmol/L 98 - 10 8 mmol/L [facility] CO2 [Moles/Vol] 24 mmol/L 21 - 31 mmol/L [facility] Creatinine [Mass/Vol] 0.76 mg/dL 0.50 - 1.20 mg/dL [facility] GFR/1.73 sq M.predicted CKD-EPI (S/P/Bld) [Vol rate/Area] - PINF [facility] Comment on above: Reported eGFR is bas ed on the CKD-EPI 2020 equation using creatinine, age, and sex. Glucose [Mass/Vol] 91 mg/dL 70 - 99 mg/dL [facility] Osmolality Calc [Osmolality] 291 [facility] Potassium [Moles/Vol] 3.7 mmol/L 3.5 - 5.0 mmol/L [facility] Sodium [Moles/Vol] 139 mmol/L 135 - 145 mmol/L [facility] Urea nitrogen [Mass/Vol] 17 mg/dL 7 - 25 mg/dL [facility] Urea nitrogen/Creatinine [Mass ratio] 22 mg/mg [facility] Magnesium [Mass/Vol] 1.9 mg/dL 1.6 - 2 .6 mg/dL [facility] Laboratory - Hematology and Cell countson 11-02-2022 Erythrocyte distribution width (RBC) [Ratio] 13.5 % 10.8 - 14.9 % [facility] Hematocrit (Bld) [Volume fraction] 35.8 % 34.9 - 44.3 % [facility] Hemoglobin (Bld) [Mass/Vol] 11.7 g/dL 11.4 - 15.2 g/dL [facility] MCH (RBC) [Entitic mass] 27.2 pg 25.9 - 33.9 pg [facility] MCHC (RBC) [Mass/Vol] 32.7 g/dL 31.4 - 35.9 g/dL [facility] MCV (RBC) [Entitic vol] 83.3 fL 79.6 - 97.7 fL [facility] Platelet mean volume (Bld) [Entitic vol] 9.3 fL 8.5 - 12.2 fL [facility] Platelets (Bld) [#/Vol] 267 10*3/uL 150 - 393 K/uL [facility] RBC (Bld) [#/Vol] 4.30 10*6/uL [facility] WBC (Bld) [#/Vol] 6.95 10*3/uL 3.99 - 11.19 K/uL [facility] Laboratory - Microbiology an d Antimicrobial susceptibilityOrdered By: Sola Fay on 11-02-2022 M. tuberculosis tuberculin stim IFN-g Ql (Bld) Negative Negative [facility] M. tuberculosis tuberculin stim IFN-g/Mitogen stimulated gamma interferon Qn (Bld control) 0.00 IU/mL [facility] M. tuberculosis tuberculin stim IFN-g/Mitogen stimulated gamma interferon Qn (Bld control) 7.01 IU/mL [facility] MAGNESIUMon 11-02-2022 Magnesium [Mass/Vol] 1.9 mg/dL Normal 1.6-2.6 [facility] Comment on above: Performed By: #### [facility] #### [facility] (DEFAULT) [address] [place] [address] No Panel Informationon 11-02 Interpretation and review of laboratory results Abnormal [facility] Vitamin D values hav e been shown to be falsely decreased in lipemic samples and should be interpreted with caution. [facility] Interpretation and review of laboratory results Normal [facility] Interpretation and review of laboratory results Normal [facility] No Panel InformationOrdered By: Sola Fay on 11-02-2022 [facility] Laboratory - Chemistry and C hemistry - challengeon 11-01-2022 Anion gap [Moles/Vol] 13 mmol/L 7 - 17 mmol/L [facility] Chloride [Moles/Vol] 109 mmol/L High 98 - 10 8 mmol/L [facility] CO2 [Moles/Vol] 23 mmol/L 21 - 31 mmol/L [facility] Creatinine [Mass/Vol] 0.79 mg/dL 0.50 - 1.20 mg/dL [facility] GFR/1.73 sq M.predicted CKD-EPI (S/P/Bld) [Vol rate/Area] - PINF [facility] Comment on above: Reported eGFR is bas ed on the CKD-EPI 2020 equation using creatinine, age, and sex. Glucose [Mass/Vol] 95 mg/dL 70 - 99 mg/dL [facility] Magnesium [Mass/Vol] 1.9 mg/dL 1.6 - 2 .6 mg/dL [facility] Osmolality Calc [Osmolality] 295 [facility] Potassium [Moles/Vol] 4.0 mmol/L 3.5 - 5.0 mmol/L [facility] Sodium [Moles/Vol] 141 mmol/L 135 - 145 mmol/L [facility] Urea nitrogen [Mass/Vol] 14 mg/dL 7 - 25 mg/dL [facility] Urea nitrogen/Creatinine [Mass ratio] 18 mg/mg [facility] Laboratory - Coagulationon 0 11-01-2022 aPTT Coag (PPP) [Time] 35.6 s High OS [facility] INR Coag (Bld) [Relative time] 1.1 {INR} 0.9 - 1.1 [facility] PT Coag (PPP) [Time] 13.8 s [facility] Laboratory - Hematology and Cell countson 11-01-2022 Erythrocyte distribution width (RBC) [Ratio] 13.3 % 10.8 - 14.9 % [facility] Hematocrit (Bld) [Volume fraction] 38.0 % 34.9 - 44.3 % [facility] Hemoglobin (Bld) [Mass/Vol] 12.4 g/dL 11.4 - 15.2 g/dL [facility] MCH (RBC) [Entitic mass] 27.1 pg 25.9 - 33.9 pg [facility] MCHC (RBC) [Mass/Vol] 32.6 g/dL 31.4 - 35.9 g/dL [facility] MCV (RBC) [Entitic vol] 83.0 fL 79.6 - 97.7 fL [facility] Platelet mean volume (Bld) [Entitic vol] 9.2 fL 8.5 - 12.2 fL [facility] Platelets (Bld) [#/Vol] 280 10*3/uL 150 - 393 K/uL [facility] RBC (Bld) [#/Vol] 4.58 10*6/uL [facility] WBC (Bld) [#/Vol] 7.46 10*3/uL 3.99 - 11.19 K/uL [facility] No Panel Informationon 11-01 Interpretation and review of laboratory results Abnormal [facility] Interpretation and review of laboratory results Abnormal [facility] Interpretation and review of laboratory results Normal [facility] Interpretation and review of laboratory results Normal [facility] Laboratory - Chemistry and C hemistry - challengeon 10-31-2022 Anion gap [Moles/Vol] 15 mmol/L 7 - 17 mmol/L [facility] Chloride [Moles/Vol] 108 mmol/L 98 - 10 8 mmol/L [facility] CO2 [Moles/Vol] 20 mmol/L Low 21 - 31 mmol/L [facility] Creatinine [Mass/Vol] 0.64 mg/dL 0.50 - 1.20 mg/dL [facility] GFR/1.73 sq M.predicted CKD-EPI (S/P/Bld) [Vol rate/Area] - PINF [facility] Comment on above: Reported eGFR is bas ed on the CKD-EPI 2020 equation using creatinine, age, and sex. Glucose [Mass/Vol] 84 mg/dL 70 - 99 mg/dL [facility] Magnesium [Mass/Vol] 1.9 mg/dL 1.6 - 2 .6 mg/dL [facility] Osmolality Calc [Osmolality] [facility] Potassium [Moles/Vol] 4.0 mmol/L 3.5 - 5.0 mmol/L [facility] Sodium [Moles/Vol] 139 mmol/L 135 - 145 mmol/L [facility] Urea nitrogen [Mass/Vol] 11 mg/dL 7 - 25 mg/dL [facility] Urea nitrogen/Creatinine [Mass ratio] 17 mg/mg [facility] Laboratory - Coagulationon 0 10-31-2022 aPTT Coag (PPP) [Time] 36.3 s High [facility] INR Coag (Bld) [Relative time] 1.2 {INR} High 0.9 - 1.1 [facility] PT Coag (PPP) [Time] 15.2 s High [facility] Laboratory - Hematology and Cell countson 10-31-2022 Erythrocyte distribution width (RBC) [Ratio] 13.3 % 10.8 - 14.9 % [facility] Hematocrit (Bld) [Volume fraction] 36.8 % 34.9 - 44.3 % [facility] Hemoglobin (Bld) [Mass/Vol] 12.0 g/dL 11.4 - 15.2 g/dL [facility] MCH (RBC) [Entitic mass] 26.8 pg 25.9 - 33.9 pg [facility] MCHC (RBC) [Mass/Vol] 32.6 g/dL 31.4 - 35.9 g/dL [facility] MCV (RBC) [Entitic vol] 82.3 fL 79.6 - 97.7 fL [facility] Platelet mean volume (Bld) [Entitic vol] 9.1 fL 8.5 - 12.2 fL [facility] Platelets (Bld) [#/Vol] 260 10*3/uL 150 - 393 K/uL [facility] RBC (Bld) [#/Vol] 4.47 10*6/uL [facility] WBC (Bld) [#/Vol] 7.87 10*3/uL 3.99 - 11.19 K/uL [facility] No Panel Informationon 10-31 [facility] Interpretation and review of laboratory results Abnormal [facility] Interpretation and review of laboratory results Normal [facility] Interpretation and review of laboratory results Abnormal [facility] Interpretation and review of laboratory results Normal [facility] Chronic hepatitis differenti ation between hepatitis B and C virus panelOrdered By: Jonathan Fairbanks on 10-30-2022 HBV core IgG+IgM Ql (S) Negative Negative [facility] HBV surface Ab IA Ql (S) Positive Abnormal Negative [facility] Comment on above: A positive result in dicates immunity through past immunization or prior infection. HBV surface Ag Ql (S) Negative Negative [facility] HCV Ab Ql (S) Negative Negative [facility] Interpretation and review of laboratory results Abnormal [facility] Laboratory - Chemistry and C hemistry - challengeon 10-30-2022 CK [Catalytic activity/Vol] 63 U/L 30 - 184 U/L [facility] pH (U) 7.5 [pH] Abnormal 5.0 - 7.0 [facility] Specific gravity (U) [Rel density] 1.015 1.001 - 1.035 [facility] Urobilinogen (U) [Mass/Vol] 0.2 E.U./dL 0.2 E.U/dL, 1.0 E.U/dL [facility] Anion gap [Moles/Vol] 13 mmol/L 7 - 17 mmol/L [facility] Chloride [Moles/Vol] 108 mmol/L 98 - 10 8 mmol/L [facility] CO2 [Moles/Vol] 21 mmol/L 21 - 31 mmol/L [facility] Creatinine [Mass/Vol] 0.57 mg/dL 0.50 - 1.20 mg/dL [facility] GFR/1.73 sq M.predicted CKD-EPI (S/P/Bld) [Vol rate/Area] - PINF [facility] Comment on above: Reported eGFR is bas ed on the CKD-EPI 2020 equation using creatinine, age, and sex. Glucose [Mass/Vol] 89 mg/dL 70 - 99 mg/dL [facility] Osmolality Calc [Osmolality] [facility] Phosphate [Mass/Vol] 3.6 mg/dL 2.2 - 4 .6 mg/dL [facility] Potassium [Moles/Vol] 3.3 mmol/L Low 3.5 - 5.0 mmol/L [facility] Sodium [Moles/Vol] 139 mmol/L 135 - 145 mmol/L [facility] Urea nitrogen [Mass/Vol] 11 mg/dL 7 - 25 mg/dL [facility] Urea nitrogen/Creatinine [Mass ratio] 19 mg/mg [facility] Calcium [Mass/Vol] 8.8 mg/dL 8.6 - 10. 5 mg/dL [facility] Magnesium [Mass/Vol] 1.7 mg/dL 1.6 - 2 .6 mg/dL [facility] Laboratory - Chemistry and C hemistry - challengeOrdered By: Hussein Weaver on 10-30-2022 Procalcitonin [Mass/Vol] ng/mL [facility] - 0.50 ng/mL [facility] Comment on above: Procalcitonin is an [...] and trend procalcitonin in various clinical settings. [email or web address] Two common cutoffs associated with bacterial infections are as follows. Respiratory tract infections: >0.25 ng/mL Sepsis/septic shock: >0.5 ng/mL Procalcitonin should not be used alone as a diagnostic tool, however. All procalcitonin results should be interpreted in association with the patients clinical condition and all laboratory findings. Laboratory - Coagulationon 0 10-30-2022 aPTT Coag (PPP) [Time] 31.1 s [facility] INR Coag (Bld) [Relative time] 1.1 {INR} 0.9 - 1.1 [facility] PT Coag (PPP) [Time] 14.2 s [facility] Laboratory - Drug toxicology Ordered By: Lise Giron on 10-30-2022 Amphetamine+Methamphet amine Screen (U) [Mass/Vol] Negative [facility] Barbiturates Ql (U) Negative [facility] Benzodiazepines Ql (U) Positive Abnormal [facility] Buprenorphine Ql (U) Negative [facility] Cannabinoids Screen Ql (U) Negative [facility] Cocaine Ql (U) Negative [facility] fentaNYL Ql (U) Negative [facility] Methadone Ql (U) Negative [facility] Opiates Ql (U) Negative [facility] oxyCODONE Ql (U) Negative [facility] Laboratory - Hematology and Cell countson 10-30-2022 Complement C3 [Mass/Vol] 143 mg/dL 87 - 200 mg/dL [facility] Complement C4 [Mass/Vol] 20 mg/dL 18 - 52 mg/dL [facility] Basophils (Bld) [#/Vol] 0.04 10*3/uL 0.00 - 0.15 K/uL [facility] Basophils/100 WBC (Bld) 0.3 % [facility] Differential cell count method Nom (Bld) Electronic Differential O [facility] Eosinophils (Bld) [#/Vol] 0.13 10*3/uL 0.00 - 0.42 K/uL [facility] Eosinophils/100 WBC (Bld) 1.1 % [facility] Erythrocyte distribution width (RBC) [Ratio] 13.2 % 10.8 - 14.9 % [facility] Hematocrit (Bld) [Volume fraction] 35.8 % 34.9 - 44.3 % [facility] Hemoglobin (Bld) [Mass/Vol] 11.7 g/dL 11.4 - 15.2 g/dL [facility] Immature granulocytes (Bld) [#/Vol] 0.05 10*3/uL NINF - 0.08 K/uL [facility] Immature granulocytes/100 WBC (Bld) 0.4 % [facility] Lymphocytes (Bld) [#/Vol] 2.53 10*3/uL 1.16 - 3.51 K/uL [facility] Lymphocytes/100 WBC (Bld) 21.6 % [facility] MCH (RBC) [Entitic mass] 26.9 pg 25.9 - 33.9 pg [facility] MCHC (RBC) [Mass/Vol] 32.7 g/dL 31.4 - 35.9 g/dL [facility] MCV (RBC) [Entitic vol] 82.3 fL 79.6 - 97.7 fL [facility] Monocytes (Bld) [#/Vol] 0.77 10*3/uL 0.22 - 0.87 K/uL [facility] Monocytes/100 WBC (Bld) 6.6 % [facility] Neutrophils (Bld) [#/Vol] 8.19 10*3/uL High 1.64 - 7.28 K/uL [facility] Nucleated RBC/100 WBC (Bld) [Ratio] 0.0 % [facility] Platelet mean volume (Bld) [Entitic vol] 9.4 fL 8.5 - 12.2 fL [facility] Platelets (Bld) [#/Vol] 265 10*3/uL 150 - 393 K/uL [facility] RBC (Bld) [#/Vol] 4.35 10*6[facility]L [facility]/100 WBC (Bld) 70.0 % [facility] WBC (Bld) [#/Vol] 11.71 10*3/uL High 3.99 - 11.19 K/uL [facility] Laboratory - Specimen inform ationon 10-30-2022 Appearance (U) Clear Clear [facility] Color (U) Yellow Yellow [facility] Laboratory - Urinalysison Bacteria LM Ql (Urine sed) ABSENT ABSENT [facility] Epithelial cells.squamous LM Ql (Urine sed) 3-5/hpf = 1+ 0-2/hpf, 3-5/hpf = 1+ [facility] Glucose Test strip (U) [Mass/Vol] Negative Negative [facility] Ketones (U) [Mass/Vol] Trace Abnormal Negative [facility] Leukocyte esterase Test strip Ql (U) Negative Negative [facility] Nitrite Ql (U) Negative Negative [facility] Protein (U) [Mass/Vol] Negative Negative [facility] RBC (U) [#/Vol] Trace Abnormal Negative [facility] RBC LM.HPF (Urine sed) [#/Area] 0-2 [facility] WBC LM.HPF (Urine sed) [#/Area] 0 - 5 [facility] No Panel InformationOrdered By: Lise Giron on 10-30-2022 Interpretation and review of laboratory results Abnormal [facility] For medical purposes only. Positive results are unconfirmed unless otherwise noted. [facility] No Panel Informationon 10-30 Interpretation and review of laboratory results Normal [facility] Interpretation and review of laboratory results Abnormal [facility] Interpretation and review of laboratory results Normal [facility] Interpretation and review of laboratory results Abnormal [facility] Interpretation and review of laboratory results Normal [facility] Interpretation and review of laboratory results Abnormal [facility] No Panel InformationOrdered By: Hussein Weaver on 10-30-2022 Interpretation and review of laboratory results Normal [facility] Portable XR Chest Viewson IMPRESSION: Right lung [...] are considerations in the appropriate clinical setting. [facility] Radiology Study observation (narrative) [facility] Portable XR Chest ViewsOrder ed By: Vivek Vergara on 10-30-2022 [facility] Work Phone: Absolute lymphocyte countOrd ered By: Zina Fierro on 10-29-2022 Lymphocytes Auto (Unsp spec) [#/Vol] 2.02 10*3/uL 0.83-4.51 [facility] Basophil percentageOrdered B y: Zina Fierro on 10-29-2022 Basophil percentage 0 SEEN /hpf 0-5 [facility] Basophils/100 WBC (Bld) 0.6 % 0-1 [facility] Bilirubin [Mass/Vol] 0.30 mg/dL 0.20-1.00 [facility] Comment on above: For patients on eltr ombopag therapy, use of Dimension [place] TBIL is not recommended. Chloride [Moles/Vol] 108 mmol/L 98-107 [facility] Eosinophils/100 WBC (Bld) 1.7 % 0-5 [facility] Glucose [Mass/Vol] 135 mg/dL 74-106 [facility] Comment on above: Fasting Glucose resu lt greater than or equal to 126 mg/dL suggests DIABETES MELLITUS per A.D.A. criteria. Neutrophils (Bld) [#/Vol] 5.4 10*3/uL 2.0-7.7 [facility] Neutrophils/100 WBC (Bld) 67.2 % 47-70 [facility] Potassium [Moles/Vol] 3.4 mmol/L 3.5-5.1 [facility] Protein [Mass/Vol] 7.4 g/dL 6.4-8.2 [facility] Sodium [Moles/Vol] 139 mmol/L 136-145 [facility] WBC (Bld) [#/Vol] 8.1 10*3/uL 4.4-11.0 [facility] Bilirubin Test strip Ql (U)O rdered By: Zina Fierro on 10-29-2022 Bilirubin Ql (U) Negative Negative [facility] Blood erythrocytes count (nu mber/volume)Ordered By: Zina Fierro on 10-29-2022 RBC (Bld) [#/Vol] 4.74 10*6/uL 4.2-5.4 [facility] Blood hemoglobin measurement (mass/volume)Ordered By: Zina Fierro on 10-29-2022 Hemoglobin (Bld) [Mass/Vol] 12.8 g/dL 12.0-15.0 [facility] Blood lymphocytes/100 leukoc ytesOrdered By: Zina Fierro on 10-29-2022 Lymphocytes/100 WBC (Bld) 25.1 % 19-41 [facility] Blood monocytes/100 leukocyt esOrdered By: Zina Fierro on 10-29-2022 Monocytes/100 WBC (Bld) 4.8 % 0-10 [facility] Blood platelet mean volumeOr dered By: Zina Fierro on 10-29-2022 Platelet mean volume (Bld) [Entitic vol] 9.5 fL 6.2-12.0 [facility] Determination of erythrocyte mean corpuscular volume (MCV)Ordered By: Zina Fierro on 10-29-2022 MCV (RBC) [Entitic vol] 84.6 fL 81-99 [facility] Hematocrit Auto (Bld) [Volum e fraction]Ordered By: Zina Fierro on 10-29-2022 Hematocrit (Bld) [Volume fraction] 40.1 % 37-47 [facility] Ketones Test strip Ql (U)Ord ered By: Zina Fierro on 10-29-2022 Ketones Ql (U) Negative Negative [facility] Laboratory - Chemistry and C hemistry - challengeOrdered By: Zina Fierro on 10-29-2022 HCG ( test) Ql (U) Negative [facility] Comment on above: Very dilute urine sp ecimens, as indicated by a low specificgravity, may not contain employment representative levels of hCG. If is still suspected, a first morning urinespecimen should be collected 48 hours later and tested. ALP [Catalytic activity/Vol] 97 U/L 45-117 [facility] ALT [Catalytic activity/Vol] 18 U/L 13-56 [facility] CO2 [Moles/Vol] 23.0 mmol/L 21.0-32.0 [facility] Globulin (S) [Mass/Vol] 3.8 g/dL 2.2-4.2 [facility] Urea nitrogen/Creatinine [Mass ratio] 12.5 mg/mg 10-20 [facility] Laboratory - Hematology and Cell countsOrdered By: Zina Fierro on 10-29-2022 Erythrocyte distribution width (RBC) [Entitic vol] 40.2 fL 35.1-43.9 [facility] Erythrocyte distribution width (RBC) [Ratio] 13.2 % 11.6-14.6 [facility] Immature granulocytes/100 WBC (Bld) 0.600 % 0.0-0.9 [facility] Comment on above: IG% - Immature Granu locytes (promyelocytes, myelocytes and metamyelocytes) > 1% indicates that a LEFT SHIFT is Present. MCH (RBC) [Entitic mass] 27.0 pg 27.0-32.0 [facility] Nucleated RBC/100 WBC (Bld) [Ratio] 0 % 0-5 [facility] MCHC Auto (RBC) [Mass/Vol]Or dered By: Zina Fierro on 10-29-2022 MCHC (RBC) [Mass/Vol] 31.9 g/dL 32-36 [facility] Mucus LM Ql (Urine sed)Order ed By: Zina Fierro on 10-29-2022 Mucus Ql (Urine sed) 0 SEEN /hpf [facility] Nitrite Test strip Ql (U)Ord ered By: Zina Fierro on 10-29-2022 Nitrite Ql (U) Negative Negative [facility] No Panel InformationOrdered By: Zina Fierro on 10-29-2022 Estimated Creatinine Clearance Calc 81.97 ml/min [facility] Estimated GFR (MDRD) Amer 106 mL/min >60 [facility] Comment on above: GFR Calc Estimated GFR (MDRD) Non-Af Amer 87 mL/min >60 [facility] Comment on above: Non- GFR Calc Platelets bldOrdered By: Zelda Fierro on 10-29-2022 Platelets (Bld) [#/Vol] 299 10*3/uL 150-450 [facility] Protein Test strip Ql (U)Ord ered By: Zina Fierro on 10-29-2022 Protein Ql (U) Negative Negative [facility] Serum or plasma albumin traci urement (mass/volume)Ordered By: Zina Fierro on 10-29-2022 Albumin [Mass/Vol] 3.6 g/dL 3.2-5.0 [facility] Serum or plasma albumin/glob ulin mass ratioOrdered By: Zina Fierro on 10-29-2022 Albumin/Globulin [Mass ratio] 0.9 {ratio} 0.9-2.4 [facility] Serum or plasma calcium traci urement (mass/volume)Ordered By: Zina Fierro on 10-29-2022 Calcium [Mass/Vol] 9.1 mg/dL 8.5-10.1 [facility] Serum or plasma creatinine m easurement (mass/volume)Ordered By: Zina Fierro on 10-29-2022 Creatinine [Mass/Vol] 0.80 mg/dL 0.55-1.02 [facility] Comment on above: The validity of the calculated GFR & GFRAA in patients over 70 years has not been determined. Clinical correlation is essential. Serum or plasma urea nitroge n measurement (mass/volume)Ordered By: Zina Fierro on 10-29-2022 Urea nitrogen [Mass/Vol] 10 mg/dL 7-18 [facility] Squamous epithelial cells de tection in urine sediment by light microscopyOrdered By: Zina Fierro on 10-29-2022 Epithelial cells.squamous LM Ql (Urine sed) 0 SEEN /hpf 5-10 [facility] Thin prep Papanicolaou smear with manual screeningOrdered By: Zina Fierro on 10-29-2022 Thin prep Papanicolaou smear with manual screening 11 U/L 15-37 [facility] Thin prep Papanicolaou smear with manual screening 8 5-15 [facility] Urine blood detectionOrdered By: Zina Fierro on 10-29-2022 RBC Ql (U) Negative Negative [facility] RBC Ql (U) 0 SEEN /hpf 0-5 [facility] Urine clarityOrdered By: Zelda Fierro on 10-29-2022 Clarity (U) Sl. Cloudy Clear [facility] Urine color determinationOrd ered By: Zina Fierro on 10-29-2022 Color (U) Yellow Yellow [facility] Urine glucose detectionOrder ed By: Zina Fierro on 10-29-2022 Glucose Ql (U) Normal mg/dl Normal [facility] Urine leukocyte esterase det ection by dipstickOrdered By: Zina Fierro on 10-29-2022 Leukocyte esterase Test strip Ql (U) Negative Negative [facility] Urine pHOrdered By: Zina schwartz on 10-29-2022 pH (U) 7.0 [pH] 5.0 - 8.0 [facility] Urine sediment bacteria coun t by microscopy (number/high power field)Ordered By: Zina Fierro on 10-29-2022 Bacteria LM.HPF (Urine sed) [#/Area] 0 /[HPF] None Seen [facility] Urine specific gravity measu rementOrdered By: Zina Fierro on 10-29-2022 Specific gravity (U) [Rel density] 1.015 1.002-1.03 0 [facility] Urobilinogen Auto test strip Ql (U)Ordered By: Zina Fierro on 10-29-2022 Urobilinogen Ql (U) Normal mg/dl Normal [facility] Absolute lymphocyte countOrd ered By: Dr. Del Castillo on 09-07-2022 Lymphocytes Auto (Unsp spec) [#/Vol] 1.67 10*3/uL 0.83-4.51 [facility] Basophil percentageOrdered B y: Dr. Del Castillo on 09-07-2022 Basophils/100 WBC (Bld) 0.4 % 0-1 [facility] Bilirubin [Mass/Vol] 0.40 mg/dL 0.20-1.00 [facility] Comment on above: For patients on eltr ombopag therapy, use of Dimension [place] TBIL is not recommended. Chloride [Moles/Vol] 112 mmol/L 98-107 [facility] Eosinophils/100 WBC (Bld) 1.1 % 0-5 [facility] Glucose [Mass/Vol] 86 mg/dL 74-106 [facility] Neutrophils (Bld) [#/Vol] 8.6 10*3/uL 2.0-7.7 [facility] Neutrophils/100 WBC (Bld) 77.3 % 47-70 [facility] Potassium [Moles/Vol] 3.7 mmol/L 3.5-5.1 [facility] Protein [Mass/Vol] 7.3 g/dL 6.4-8.2 [facility] Sodium [Moles/Vol] 140 mmol/L 136-145 [facility] WBC (Bld) [#/Vol] 11.1 10*3/uL 4.4-11.0 [facility] Blood erythrocytes count (nu mber/volume)Ordered By: Dr. Del Castillo on 09-07-2022 RBC (Bld) [#/Vol] 4.48 10*6/uL 4.2-5.4 [facility] Blood hemoglobin measurement (mass/volume)Ordered By: Dr. Del Castillo on 09-07-2022 Hemoglobin (Bld) [Mass/Vol] 12.4 g/dL 12.0-15.0 [facility] Blood lymphocytes/100 leukoc ytesOrdered By: Dr. Del Castillo on 09-07-2022 Lymphocytes/100 WBC (Bld) 15.0 % 19-41 [facility] Blood monocytes/100 leukocyt esOrdered By: Dr. Del Castillo on 09-07-2022 Monocytes/100 WBC (Bld) 5.8 % 0-10 [facility] Blood platelet mean volumeOr dered By: Dr. Del Castillo on 09-07-2022 Platelet mean volume (Bld) [Entitic vol] 9.3 fL 6.2-12.0 [facility] Determination of erythrocyte mean corpuscular volume (MCV)Ordered By: Dr. Del Castillo on 09-07-2022 MCV (RBC) [Entitic vol] 85.9 fL 81-99 [facility] Hematocrit Auto (Bld) [Volum e fraction]Ordered By: Dr. Del Castillo on 09-07-2022 Hematocrit (Bld) [Volume fraction] 38.5 % 37-47 [facility] Laboratory - Chemistry and C hemistry - challengeOrdered By: Dr. Del Castillo on 09-07-2022 ALP [Catalytic activity/Vol] 102 U/L 45-117 [facility] ALT [Catalytic activity/Vol] 20 U/L 13-56 [facility] CO2 [Moles/Vol] 22.0 mmol/L 21.0-32.0 [facility] Globulin (S) [Mass/Vol] 3.4 g/dL 2.2-4.2 [facility] Urea nitrogen/Creatinine [Mass ratio] 13.5 mg/mg 10-20 [facility] Laboratory - Hematology and Cell countsOrdered By: Dr. Del Castillo on 09-07-2022 Erythrocyte distribution width (RBC) [Entitic vol] 41.1 fL 35.1-43.9 [facility] Erythrocyte distribution width (RBC) [Ratio] 13.2 % 11.6-14.6 [facility] Immature granulocytes/100 WBC (Bld) 0.400 % 0.0-0.9 [facility] Comment on above: IG% - Immature Granu locytes (promyelocytes, myelocytes and metamyelocytes) > 1% indicates that a LEFT SHIFT is Present. MCH (RBC) [Entitic mass] 27.7 pg 27.0-32.0 [facility] Nucleated RBC/100 WBC (Bld) [Ratio] 0 % 0-5 [facility] MCHC Auto (RBC) [Mass/Vol]Or dered By: Dr. Del Castillo on 09-07-2022 MCHC (RBC) [Mass/Vol] 32.2 g/dL 32-36 [facility] No Panel InformationOrdered By: Dr. Del Castillo on 09-07-2022 D-Dimer Quantitative (PE/DVT) < 0.27 FEU/ug/m 0.27-0.49 [facility] Comment on above: NORMAL D-Dimer level (<0.50) indicates no DVT or PE. Estimated Creatinine Clearance Calc 88.61 ml/min [facility] Estimated GFR (MDRD) Amer 115 mL/min >60 [facility] Comment on above: GFR Calc Estimated GFR (MDRD) Non-Af Amer 95 mL/min >60 [facility] Comment on above: Non- GFR Calc Platelets bldOrdered By: Dr. Del Castillo on 09-07-2022 Platelets (Bld) [#/Vol] 306 10*3/uL 150-450 [facility] Serum or plasma albumin traci urement (mass/volume)Ordered By: Dr. Del Castillo on 09-07-2022 Albumin [Mass/Vol] 3.9 g/dL 3.2-5.0 [facility] Serum or plasma albumin/glob ulin mass ratioOrdered By: Dr. Del Castillo on 09-07-2022 Albumin/Globulin [Mass ratio] 1.1 {ratio} 0.9-2.4 [facility] Serum or plasma calcium traci urement (mass/volume)Ordered By: Dr. Del Castillo on 09-07-2022 Calcium [Mass/Vol] 9.1 mg/dL 8.5-10.1 [facility] Serum or plasma creatinine m easurement (mass/volume)Ordered By: Dr. Del Castillo on 09-07-2022 Creatinine [Mass/Vol] 0.74 mg/dL 0.55-1.02 [facility] Comment on above: The validity of the calculated GFR & GFRAA in patients over 70 years has not been determined. Clinical correlation is essential. Serum or plasma urea nitroge n measurement (mass/volume)Ordered By: Dr. Del Castillo on 09-07-2022 Urea nitrogen [Mass/Vol] 10 mg/dL 7-18 [facility] Thin prep Papanicolaou smear with manual screeningOrdered By: Dr. 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 Doug states she would like to get scheduled for an appt within the next month. Doug states she is available for call back any time. EVELIO contacted Doug for additional information regarding scheduling; however, there was no answer. EVELIO LVM with office fax# and ph# for referral and scheduling. Please be advised. Office Name: Neurology, [facility] Medication Refills need, if any: N/A Medication Name: N/A Normal [facility] Absolute lymphocyte countOrd ered By: Dr. Feldman on 08-08-2022 Lymphocytes Auto (Unsp spec) [#/Vol] 0.97 10*3/uL 0.83-4.51 [facility] Basophil percentageOrdered B y: Dr. Feldman on 08-08-2022 Basophils/100 WBC (Bld) 0.4 % 0-1 [facility] Chloride [Moles/Vol] 114 mmol/L 98-107 [facility] Eosinophils/100 WBC (Bld) 0.9 % 0-5 [facility] Glucose [Mass/Vol] 113 mg/dL 74-106 [facility] Comment on above: Fasting Glucose resu lt from 100 to 125 mg/dL suggests IMPAIRED HOMEOSTASIS per A.D.A. criteria. Neutrophils (Bld) [#/Vol] 10.1 10*3/uL 2.0-7.7 [facility] Neutrophils/100 WBC (Bld) 85.0 % 47-70 [facility] Potassium [Moles/Vol] 3.7 mmol/L 3.5-5.1 [facility] Sodium [Moles/Vol] 139 mmol/L 136-145 [facility] WBC (Bld) [#/Vol] 11.9 10*3/uL 4.4-11.0 [facility] Basophil percentage 0 SEEN /hpf 0-5 [facility] Bilirubin Test strip Ql (U)O rdered By: Dr. Feldman on 08-08-2022 Bilirubin Ql (U) Negative Negative [facility] Blood erythrocytes count (nu mber/volume)Ordered By: Dr. Feldman on 08-08-2022 RBC (Bld) [#/Vol] 4.31 10*6/uL 4.2-5.4 [facility] Blood hemoglobin measurement (mass/volume)Ordered By: Dr. Feldman on 08-08-2022 Hemoglobin (Bld) [Mass/Vol] 12.1 g/dL 12.0-15.0 [facility] Blood lymphocytes/100 leukoc ytesOrdered By: Dr. Feldman on 08-08-2022 Lymphocytes/100 WBC (Bld) 8.1 % 19-41 [facility] Blood monocytes/100 leukocyt esOrdered By: Dr. Feldman on 08-08-2022 Monocytes/100 WBC (Bld) 5.0 % 0-10 [facility] Blood platelet mean volumeOr dered By: Dr. Feldman on 08-08-2022 Platelet mean volume (Bld) [Entitic vol] 9.1 fL 6.2-12.0 [facility] Determination of erythrocyte mean corpuscular volume (MCV)Ordered By: Dr. Feldman on 08-08-2022 MCV (RBC) [Entitic vol] 85.6 fL 81-99 [facility] Hematocrit Auto (Bld) [Volum e fraction]Ordered By: Dr. Feldman on 08-08-2022 Hematocrit (Bld) [Volume fraction] 36.9 % 37-47 [facility] Ketones Test strip Ql (U)Ord ered By: Dr. Feldman on 08-08-2022 Ketones Ql (U) Negative Negative [facility] Laboratory - Chemistry and C hemistry - challengeOrdered By: Dr. Feldman on 08-08-2022 CO2 [Moles/Vol] 22.0 mmol/L 21.0-32.0 [facility] Urea nitrogen/Creatinine [Mass ratio] 18.3 mg/mg 10-20 [facility] HCG ( test) Ql (U) Negative [facility] Comment on above: Very dilute urine sp ecimens, as indicated by a low specificgravity, may not contain employment representative levels of hCG. If is still suspected, a first morning urinespecimen should be collected 48 hours later and tested. Laboratory - Hematology and Cell countsOrdered By: Dr. Feldman on 08-08-2022 Erythrocyte distribution width (RBC) [Entitic vol] 43.0 fL 35.1-43.9 [facility] Erythrocyte distribution width (RBC) [Ratio] 13.7 % 11.6-14.6 [facility] Immature granulocytes/100 WBC (Bld) 0.600 % 0.0-0.9 [facility] Comment on above: IG% - Immature Granu locytes (promyelocytes, myelocytes and metamyelocytes) > 1% indicates that a LEFT SHIFT is Present. MCH (RBC) [Entitic mass] 28.1 pg 27.0-32.0 [facility] Nucleated RBC/100 WBC (Bld) [Ratio] 0 % 0-5 [facility] MCHC Auto (RBC) [Mass/Vol]Or dered By: Dr. Feldman on 08-08-2022 MCHC (RBC) [Mass/Vol] 32.8 g/dL 32-36 [facility] Mucus LM Ql (Urine sed)Order ed By: Dr. Feldman on 08-08-2022 Mucus Ql (Urine sed) 0 SEEN /hpf [facility] Nitrite Test strip Ql (U)Ord ered By: Dr. Feldman on 08-08-2022 Nitrite Ql (U) Negative Negative [facility] No Panel InformationOrdered By: Dr. Feldman on 08-08-2022 Estimated Creatinine Clearance Calc 100.29 ml/min [facility] Estimated GFR (MDRD) Amer 133 mL/min >60 [facility] Comment on above: GFR Calc Estimated GFR (MDRD) Non-Af Amer 110 mL/min >60 [facility] Comment on above: Non- GFR Calc Platelets bldOrdered By: Dr. Feldman on 08-08-2022 Platelets (Bld) [#/Vol] 255 10*3/uL 150-450 [facility] Protein Test strip Ql (U)Ord ered By: Dr. Feldman on 08-08-2022 Protein Ql (U) Negative Negative [facility] Serum or plasma calcium traci urement (mass/volume)Ordered By: Dr. Feldman on 08-08-2022 Calcium [Mass/Vol] 8.9 mg/dL 8.5-10.1 [facility] Serum or plasma creatinine m easurement (mass/volume)Ordered By: Dr. Feldman on 08-08-2022 Creatinine [Mass/Vol] 0.66 mg/dL 0.55-1.02 [facility] Comment on above: The validity of the calculated GFR & GFRAA in patients over 70 years has not been determined. Clinical correlation is essential. Serum or plasma urea nitroge n measurement (mass/volume)Ordered By: Dr. Feldman on 08-08-2022 Urea nitrogen [Mass/Vol] 12 mg/dL 7-18 [facility] Squamous epithelial cells de tection in urine sediment by light microscopyOrdered By: Dr. Feldman on 08-08-2022 Epithelial cells.squamous LM Ql (Urine sed) 0-5 SEEN /hpf 5-10 [facility] Thin prep Papanicolaou smear with manual screeningOrdered By: Dr. Feldman on 08-08-2022 Thin prep Papanicolaou smear with manual screening 3 5-15 [facility] Urine blood detectionOrdered By: Dr. Feldman on 08-08-2022 RBC Ql (U) Negative Negative [facility] RBC Ql (U) 0 SEEN /hpf 0-5 [facility] Urine clarityOrdered By: Dr. Feldman on 08-08-2022 Clarity (U) Clear Clear [facility] Urine color determinationOrd ered By: Dr. Feldman on 08-08-2022 Color (U) Yellow Yellow [facility] Urine glucose detectionOrder ed By: Dr. Feldman on 08-08-2022 Glucose Ql (U) Normal mg/dl Normal [facility] Urine leukocyte esterase det ection by dipstickOrdered By: Dr. Feldman on 08-08-2022 Leukocyte esterase Test strip Ql (U) Negative Negative [facility] Urine pHOrdered By: Dr. Feldman o n 08-08-2022 pH (U) 8.0 [pH] 5.0 - 8.0 [facility] Urine sediment bacteria coun t by microscopy (number/high power field)Ordered By: Dr. Feldman on 08-08-2022 Bacteria LM.HPF (Urine sed) [#/Area] 1 /[HPF] None Seen [facility] Urine specific gravity measu rementOrdered By: Dr. Feldman on 08-08-2022 Specific gravity (U) [Rel density] 1.015 1.002-1.03 0 [facility] Urobilinogen Auto test strip Ql (U)Ordered By: Dr. 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 SHE SAID AT THIS TIME, OUTPT MEDICATION PAYMENT HAS STILL NOT GONE THROUGH, BUT THEY WILL CONTINUE TO WORK ON THIS. SHE ALSO TOLD ME SHE WILL FOLLOW UP WITH PT. SPOKE WITH PT AND MOM, JUST FINISHED PLASMAPHERESIS. WILL GET TUNNELED LINE OUT AND DISCHARGE TO HOME LATER TODAY. AWARE AGUSTIN FROM [facility] WILL BE IN CONTACT. Normal [facility] CBC W Auto Differential pane l (Bld)Ordered By: Chris Foley on 08-07-2022 Basophils (Bld) [#/Vol] 0.1 10*3/uL 0.0 - 0.2 10*3/uL [facility] Basophils/100 WBC (Bld) 0.8 % 0.0 - 2.0 % [facility] Eosinophils (Bld) [#/Vol] 0.3 10*3/uL 0.0 - 0.5 10*3/uL [facility] Eosinophils/100 WBC (Bld) 4.7 % 1.0 - 6.0 % [facility] Erythrocyte distribution width (RBC) [Ratio] 14.2 % 11.5 - 14.5 % [facility] Hematocrit (Bld) [Volume fraction] 36.5 % 35.0 - 47.0 % [facility] Hemoglobin (Bld) [Mass/Vol] 11.8 g/dL 11.7 - 16.0 g/dL [facility] Interpretation and review of laboratory results Abnormal [facility] Lymphocytes (Bld) [#/Vol] 1.8 10*3/uL 1.0 - 4.3 10*3/uL [facility] Lymphocytes/100 WBC (Bld) 25.6 % 20.0 - 40.0 % [facility] MCH (RBC) [Entitic mass] 27.9 pg 26.0 - 34.0 pg [facility] MCHC (RBC) [Mass/Vol] 32.4 % 32.0 - 36.0 % [facility] MCV (RBC) [Entitic vol] 86.1 fL 80.0 - 98.0 fL [facility] Monocytes (Bld) [#/Vol] 0.4 10*3/uL 0.0 - 0.8 10*3/uL [facility] Monocytes/100 WBC (Bld) 5.9 % 2.0 - 10.0 % [facility] Neutrophils (Bld) [#/Vol] 4.4 10*3/uL 1.8 - 7.0 10*3/uL [facility] Neutrophils/100 WBC (Bld) 63.0 % 40.0 - 80.0 % [facility] Nucleated RBC/100 WBC (Bld) [Ratio] 0.0 % [facility] Platelet mean volume (Bld) [Entitic vol] 7.2 fL Low 7.4 - 12.4 fL [facility] Platelets (Bld) [#/Vol] 228 10*3/uL 140 - 440 10*3/uL [facility] RBC (Bld) [#/Vol] 4.24 10*6/uL 3.8 - 5.20 10*6/uL [facility] WBC (Bld) [#/Vol] 6.9 10*3/uL 3.6 - 10.7 10*3/uL [facility] Comprehensive metabolic 1998 panelon 08-07-2022 Albumin [Mass/Vol] 4.6 g/dL 3.5 - 5.0 g/dL [facility] ALP [Catalytic activity/Vol] 34 U/L Low 38 - 126 U/L [facility] ALT [Catalytic activity/Vol] 15 U/L 0 - 34 U/L [facility] Anion gap [Moles/Vol] 10 mmol/L 3 - 13 mmol/L [facility] AST [Catalytic activity/Vol] 25 U/L 15 - 46 U/L [facility] Bilirubin [Mass/Vol] 0.3 mg/dL 0.2 - 1 .3 mg/dL [facility] Calcium [Mass/Vol] 9.1 mg/dL 8.4 - 10. 4 mg/dL [facility] Chloride [Moles/Vol] 111 mmol/L High 98 - 10 7 mmol/L [facility] CO2 [Moles/Vol] 20 mmol/L Low 22 - 30 mmol/L [facility] Creatinine [Mass/Vol] 0.70 mg/dL 0.52 - 1.04 mg/dL [facility] GFR/1.73 sq M.predicted MDRD (S/P/Bld) [Vol rate/Area] - PINF [facility] Comment on above: Calculation based on the Chronic Kidney Disease Epidemiology Collaboration (CKD-EPI) equation refit without adjustment for race Glucose [Mass/Vol] 92 mg/dL 70 - 100 mg/dL [facility] Interpretation and review of laboratory results Abnormal [facility] Potassium [Moles/Vol] 3.8 mmol/L 3.5 - 5.1 mmol/L [facility] Protein [Mass/Vol] 6.2 g/dL Low 6.3 - 8.2 g/dL [facility] Sodium [Moles/Vol] 140 mmol/L 135 - 145 mmol/L [facility] Urea nitrogen [Mass/Vol] 13 mg/dL 7 - 17 mg/dL [facility] Nursing Noteon 08-07-2022 Nursing Note To IR for Tunnel Hem o dialysis catheter Pt positioned, prepped and draped per protocol 28 cm tunnel HD removed pressure held to site 10 min site benign dry dressing applied. . Pt tolerated procedure well, pt denies complaints post. Pt to her room.. Normal [facility] RF Guidance for removal of t unneled [...] Electronically Signed Date/Time: 08/07/2022 3:52 PM EDT [facility] Otis Denise MD - 08/07/2022 Patient [...] Electronically Signed Date/Time: 08/07/2022 3:52 PM EDT [facility] Radiology Study observation (narrative) [facility] RF Guidance for removal of t unneled CV catheterOrdered By: Otis Denise on 08-07-2022 [employer] Work Phone[facility] Dakota met with nissa arteaga for follow-up on [...] educate pt on [facility] which provides outpatient/crisis MH services in her area. Pt was also provided with [employer] business card for behavioral health support while in the community. Pt thanked Dakota and was agreeable to contact Dakota if needed. Normal [facility] CBC W Auto Differential pane l (Bld)on 08-06-2022 Basophils (Bld) [#/Vol] 0.0 10*3/uL 0.0 - 0.2 10*3/uL [facility] Basophils/100 WBC (Bld) 0.6 % 0.0 - 2.0 % [facility] Eosinophils (Bld) [#/Vol] 0.3 10*3/uL 0.0 - 0.5 10*3/uL [facility] Eosinophils/100 WBC (Bld) 4.3 % 1.0 - 6.0 % [facility] Erythrocyte distribution width (RBC) [Ratio] 14.1 % 11.5 - 14.5 % [facility] Hematocrit (Bld) [Volume fraction] 35.1 % 35.0 - 47.0 % [facility] Hemoglobin (Bld) [Mass/Vol] 11.6 g/dL Low 11.7 - 16.0 g/dL [facility] Interpretation and review of laboratory results Abnormal [facility] Lymphocytes (Bld) [#/Vol] 1.5 10*3/uL 1.0 - 4.3 10*3/uL [facility] Lymphocytes/100 WBC (Bld) 21.5 % 20.0 - 40.0 % [facility] MCH (RBC) [Entitic mass] 28.2 pg 26.0 - 34.0 pg [facility] MCHC (RBC) [Mass/Vol] 32.9 % 32.0 - 36.0 % [facility] MCV (RBC) [Entitic vol] 85.7 fL 80.0 - 98.0 fL [facility] Monocytes (Bld) [#/Vol] 0.4 10*3/uL 0.0 - 0.8 10*3/uL [facility] Monocytes/100 WBC (Bld) 6.2 % 2.0 - 10.0 % [facility] Neutrophils (Bld) [#/Vol] 4.8 10*3/uL 1.8 - 7.0 10*3/uL [facility] Neutrophils/100 WBC (Bld) 67.4 % 40.0 - 80.0 % [facility] Nucleated RBC/100 WBC (Bld) [Ratio] 0.0 % [facility] Platelet mean volume (Bld) [Entitic vol] 7.3 fL Low 7.4 - 12.4 fL [facility] Platelets (Bld) [#/Vol] 215 10*3/uL 140 - 440 10*3/uL [facility] RBC (Bld) [#/Vol] 4.10 10*6/uL 3.8 - 5.20 10*6/uL [facility] WBC (Bld) [#/Vol] 7.1 10*3/uL 3.6 - 10.7 10*3/uL [facility] Comprehensive metabolic 1998 panelon 08-06-2022 Albumin [Mass/Vol] 4.3 g/dL 3.5 - 5.0 g/dL [facility] ALP [Catalytic activity/Vol] 28 U/L Low 38 - 126 U/L [facility] ALT [Catalytic activity/Vol] 11 U/L 0 - 34 U/L [facility] Anion gap [Moles/Vol] 7 mmol/L 3 - 13 mmol/L [facility] AST [Catalytic activity/Vol] 24 U/L 15 - 46 U/L [facility] Bilirubin [Mass/Vol] 0.4 mg/dL 0.2 - 1 .3 mg/dL [facility] Calcium [Mass/Vol] 8.7 mg/dL 8.4 - 10. 4 mg/dL [facility] Chloride [Moles/Vol] 110 mmol/L High 98 - 10 7 mmol/L [facility] CO2 [Moles/Vol] 22 mmol/L 22 - 30 mmol/L [facility] Creatinine [Mass/Vol] 0.64 mg/dL 0.52 - 1.04 mg/dL [facility] GFR/1.73 sq M.predicted MDRD (S/P/Bld) [Vol rate/Area] - PINF [facility] Comment on above: Calculation based on the Chronic Kidney Disease Epidemiology Collaboration (CKD-EPI) equation refit without adjustment for race Glucose [Mass/Vol] 93 mg/dL 70 - 100 mg/dL [facility] Interpretation and review of laboratory results Abnormal [facility] Potassium [Moles/Vol] 3.7 mmol/L 3.5 - 5.1 mmol/L [facility] Protein [Mass/Vol] 5.8 g/dL Low 6.3 - 8.2 g/dL [facility] Sodium [Moles/Vol] 139 mmol/L 135 - 145 mmol/L [facility] Urea nitrogen [Mass/Vol] 11 mg/dL 7 - 17 mg/dL [facility] Progress Noteon 08-06-2022 Progress Note Nutrition update completed. Chart reviewed. Patient to be monitored and followed by the diet environmental health technician. Dietitian available upon request. Normal [facility] Progress Note Paged by nursing sta [...] DO, MS, PGY-1 08/06/22 at 3:31 AM Normal [facility] CARECOORDon 08-05-2022 CARECOORD SPOKE WITH PT AND EMILE Greenwood AT BEDSIDE THIS MORNING. PT HAVING PLASMAPHERESIS. INFORMED THEM TALKED WITH AGUSTIN BLACK ASHAGAUDENCIO YESTERDAY AND WILL TOUCH BASE WITH HER TOMORROW. MOM HAD QUESTIONS ABOUT FILLING A FAMILY APPEAL FOR OUTPT IV MEDS, ALL QUESTIONS ANSWERED. Normal [facility] CBC W Auto Differential pane l (Bld)on 08-05-2022 Basophils (Bld) [#/Vol] 0.1 10*3/uL 0.0 - 0.2 10*3/uL [facility] Basophils/100 WBC (Bld) 1.1 % 0.0 - 2.0 % [facility] Eosinophils (Bld) [#/Vol] 0.3 10*3/uL 0.0 - 0.5 10*3/uL [facility] Eosinophils/100 WBC (Bld) 3.9 % 1.0 - 6.0 % [facility] Erythrocyte distribution width (RBC) [Ratio] 14.3 % 11.5 - 14.5 % [facility] Hematocrit (Bld) [Volume fraction] 37.8 % 35.0 - 47.0 % [facility] Hemoglobin (Bld) [Mass/Vol] 12.3 g/dL 11.7 - 16.0 g/dL [facility] Interpretation and review of laboratory results Abnormal [facility] Lymphocytes (Bld) [#/Vol] 1.9 10*3/uL 1.0 - 4.3 10*3/uL [facility] Lymphocytes/100 WBC (Bld) 22.2 % 20.0 - 40.0 % [facility] MCH (RBC) [Entitic mass] 28.0 pg 26.0 - 34.0 pg [facility] MCHC (RBC) [Mass/Vol] 32.4 % 32.0 - 36.0 % [facility] MCV (RBC) [Entitic vol] 86.3 fL 80.0 - 98.0 fL [facility] Monocytes (Bld) [#/Vol] 0.5 10*3/uL 0.0 - 0.8 10*3/uL [facility] Monocytes/100 WBC (Bld) 5.8 % 2.0 - 10.0 % [facility] Neutrophils (Bld) [#/Vol] 5.9 10*3/uL 1.8 - 7.0 10*3/uL [facility] Neutrophils/100 WBC (Bld) 67.0 % 40.0 - 80.0 % [facility] Nucleated RBC/100 WBC (Bld) [Ratio] 0.0 % [facility] Platelet mean volume (Bld) [Entitic vol] 7.3 fL Low 7.4 - 12.4 fL [facility] Platelets (Bld) [#/Vol] 217 10*3/uL 140 - 440 10*3/uL [facility] RBC (Bld) [#/Vol] 4.39 10*6/uL 3.8 - 5.20 10*6/uL [facility] WBC (Bld) [#/Vol] 8.7 10*3/uL 3.6 - 10.7 10*3/uL [facility] Comprehensive metabolic 1998 panelon 08-05-2022 Albumin [Mass/Vol] 4.5 g/dL 3.5 - 5.0 g/dL [facility] ALP [Catalytic activity/Vol] 37 U/L Low 38 - 126 U/L [facility] ALT [Catalytic activity/Vol] 12 U/L 0 - 34 U/L [facility] Anion gap [Moles/Vol] 9 mmol/L 3 - 13 mmol/L [facility] AST [Catalytic activity/Vol] 22 U/L 15 - 46 U/L [facility] Bilirubin [Mass/Vol] 0.4 mg/dL 0.2 - 1 .3 mg/dL [facility] Calcium [Mass/Vol] 8.8 mg/dL 8.4 - 10. 4 mg/dL [facility] Chloride [Moles/Vol] 111 mmol/L High 98 - 10 7 mmol/L [facility] CO2 [Moles/Vol] 22 mmol/L 22 - 30 mmol/L [facility] Creatinine [Mass/Vol] 0.68 mg/dL 0.52 - 1.04 mg/dL [facility] GFR/1.73 sq M.predicted MDRD (S/P/Bld) [Vol rate/Area] - PINF [facility] Comment on above: Calculation based on the Chronic Kidney Disease Epidemiology Collaboration (CKD-EPI) equation refit without adjustment for race Glucose [Mass/Vol] 91 mg/dL 70 - 100 mg/dL [facility] Interpretation and review of laboratory results Abnormal [facility] Potassium [Moles/Vol] 3.8 mmol/L 3.5 - 5.1 mmol/L [facility] Protein [Mass/Vol] 6.4 g/dL 6.3 - 8.2 g/dL [facility] Sodium [Moles/Vol] 141 mmol/L 135 - 145 mmol/L [facility] Urea nitrogen [Mass/Vol] 14 mg/dL 7 - 17 mg/dL [facility] Laboratory - Drug toxicology on 08-05-2022 lamoTRIgine [Mass/Vol] 8.5 ug/mL 3.0 - 15.0 ug/mL [facility] Comment on above: INTERPRETIVE INFORMA TION: Lamotrigine Therapeutic Range: 3.0-15.0 ug/mL Toxic: Greater than or equal to 20 ug/mL Pharmacokinetics varies widely, particularly with co-medications and/or compromised renal function. Adverse effects may include dizziness, somnolence, nausea and vomiting. Performed By: [facility] [address] [place], [place] [id number] Vacation Guide: Maya Mendieta MD, PhD 10-Hydroxycarbazepine [Mass/Vol] <1 Low 3 - 35 ug/mL [facility] Comment on above: INTERPRETIVE INFORMA TION: Oxcarbazepine Therapeutic range: 3-35 ug/mL. Toxic: Greater than 40 ug/mL This test measures monohydroxyoxcarbazepine (MHD). Adverse effects may include dizziness, fatigue, nausea, headache, somnolence, ataxia and tremor. This test was developed and its performance characteristics determined by [facility]. It has not been cleared or approved by the [place] Food and Drug Administration. This test was performed in a CLIA certified laboratory and is intended for clinical purposes. Performed By: [facility] [address] [place] [address] Vacation Guide: Maya Mendieta MD, PhD Zonisamide [Mass/Vol] 19 ug/mL 10 - 4 0 ug/mL [facility] Comment on above: INTERPRETIVE INFORMA TION: Zonisamide Therapeutic range: Not well established. Toxic: Greater than 80 ug/mL The proposed therapeutic range for seizure control is 10-40 ug/mL. Toxic concentrations may cause coma, seizures and cardiac abnormalities. Pharmacokinetics varies widely, particularly with co-medications and/or compromised renal function. Performed By: [facility] [address] [place] [address] Vacation Guide: Maya Mendieta MD, PhD No Panel Informationon 08-05 [facility] Interpretation and review of laboratory results Abnormal [facility] Progress Noteon 08-05-2022 Progress Note # 4 TPE completed to day Pt tolerated well Flowsheets in bed side chart Normal [facility] Progress Note Indications for Dial ysis No data to display Subjective Interval History: Doug Flanagan has none. Did fine with pheresis Medications Current Facility-Administered Medications: acetaminophen (Tylenol) tablet 650 mg, 650 mg, Oral, q6h PRN, 650 mg at 08/04/22 1738 OR acetaminophen (Tylenol) suppository 650 mg, 650 mg, Rectal, q6h PRN, Antwon Orellanau, DO acetaminophen (Tylenol) tablet 1,000 mg, 1,000 mg, Oral, TID, Tanner Wang MD, 1,000 mg at 08/05/22 0925 apixaban (Eliquis) tablet 5 mg, 5 mg, Oral, BID, Antwon Nascimento DO, 5 mg at 08/05/22 0823 calcium gluconate 1,900 mg in sodium chloride 0.9 % 100 mL IVPB, 1,900 mg, IntraVENous, Once in dialysis, Get Manjarrez MD, 1,900 mg at 08/05/22 1038 citrate dextrose (ACD-A) infusion, 100-200 mL/hr, IntraCATHeter, Continuous, Perla Cantor MD, Last Rate: 100 mL/hr at [...] Daily, Vinuth Koduru, DO, 10 mg at 08/04/22 1950 heparin flush injection 100 Units, 100 Units, IntraCATHeter, q12h, Juliana Tavares MD, 100 Units at 08/05/22 0823 heparin flush injection 100 Units, 100 Units, IntraCATHeter, PRN, Juliana Tavares MD heparin injection 2,100 Units, 2,100 Units, IntraCATHeter, PRN, Perla Cantor MD, 2,100 Units at 08/03/22 1404 heparin injection 2,200 Units, 2,200 Units, IntraCATHeter, PRN, Perla Cantor MD, 2,200 Units at 08/03/22 1404 hydrOXYzine pamoate (Vistaril) capsule 25 mg, 25 mg, Oral, q6h PRN, Tanner Wang MD, 25 mg at 08/03/22 1852 ibuprofen tablet 600 mg, 600 mg, Oral, q6h PRN, Tanner Wang MD lamoTRIgine (LaMICtal) tablet 100 mg, 100 mg, Oral, Daily, Shankaruth Koduru, DO, 100 mg at 08/05/22 0823 lamoTRIgine (LaMICtal) tablet 250 mg, 250 mg, Oral, Nightly, Shankaruth Koduru, DO, 250 mg at 08/04/22 195 LORazepam (Ativan) tablet 1 mg, 1 mg, Oral, q12h PRN, Antwon Koduru, DO, 1 mg at 08/05/22 0925 ondansetron ODT (Zofran-ODT) disintegrating tablet 4 mg, 4 mg, Oral, q8h PRN OR ondansetron (Zofran) injection 4 mg, 4 mg, IntraVENous, q6h PRN, Vinuth Koduru, DO, 4 mg at 07/31/22 1628 OXcarbazepine (Trileptal) tablet 150 mg, 150 mg, Oral, Daily, Vinuth Koduru, DO, 150 mg at 08/04/22 2140 polyethylene glycol (PEG) 3350 (Miralax) packet 17 [...] flush 10 mL, 10 mL, IntraCATHeter, PRN, Jluiana Tavares MD sodium chloride 0.9% (NS) flush [...] at 08/04/221952 Objective Physical Exam Physical Exam [facility] Non focal neuro +weakness Relevant Results Vital [...] TDC removed on Wednesday prior to discharge Perla Cantor MD 08/05/2022 10:[address] [facility] CARECOORDon 08-04-2022 DEBBIE SPOKE WITH PT, DOING GOOD THIS MORNING. SHE DID TALK WITH HER [facility] [employer] [employer] AGUSTIN YESTERDAY. GAVE ME HERE #, . I DID SPEAK WITH AGUSTIN, SHE IS WORKING TO GET PT'S OUTPT IV MED APPROVED. SHE WILL TOUCH BASE WITH ME TOWARDS END OF WEEK. PLAN FOR PLASMAPHERESIS TOMORROW. DISCHARGE TO HOME WHEN MEDICALLY READY. [facility] CBC W Auto Differential pane l (Bld)on 08-04-2022 Basophils (Bld) [#/Vol] 0.1 10*3/uL 0.0 - 0.2 10*3/uL [facility] Basophils/100 WBC (Bld) 0.7 % 0.0 - 2.0 % [facility] Eosinophils (Bld) [#/Vol] 0.3 10*3/uL 0.0 - 0.5 10*3/uL [facility] Eosinophils/100 WBC (Bld) 4.0 % 1.0 - 6.0 % [facility] Erythrocyte distribution width (RBC) [Ratio] 14.4 % 11.5 - 14.5 % [facility] Hematocrit (Bld) [Volume fraction] 37.3 % 35.0 - 47.0 % [facility] Hemoglobin (Bld) [Mass/Vol] 12.1 g/dL 11.7 - 16.0 g/dL [facility] Interpretation and review of laboratory results Normal [facility] Lymphocytes (Bld) [#/Vol] 1.8 10*3/uL 1.0 - 4.3 10*3/uL [facility] Lymphocytes/100 WBC (Bld) 22.6 % 20.0 - 40.0 % [facility] MCH (RBC) [Entitic mass] 27.9 pg 26.0 - 34.0 pg [facility] MCHC (RBC) [Mass/Vol] 32.4 % 32.0 - 36.0 % [facility] MCV (RBC) [Entitic vol] 86.3 fL 80.0 - 98.0 fL [facility] Monocytes (Bld) [#/Vol] 0.6 10*3/uL 0.0 - 0.8 10*3/uL [facility] Monocytes/100 WBC (Bld) 6.9 % 2.0 - 10.0 % [facility] Neutrophils (Bld) [#/Vol] 5.4 10*3/uL 1.8 - 7.0 10*3/uL [facility] Neutrophils/100 WBC (Bld) 65.8 % 40.0 - 80.0 % [facility] Nucleated RBC/100 WBC (Bld) [Ratio] 0.0 % [facility] Platelet mean volume (Bld) [Entitic vol] 7.4 fL 7.4 - 12.4 fL [facility] Platelets (Bld) [#/Vol] 214 10*3/uL 140 - 440 10*3/uL [facility] RBC (Bld) [#/Vol] 4.33 10*6/uL 3.8 - 5.20 10*6/uL [facility] WBC (Bld) [#/Vol] 8.2 10*3/uL 3.6 - 10.7 10*3/uL [facility] Comprehensive metabolic 1998 panelon 08-04-2022 Albumin [Mass/Vol] 4.1 g/dL 3.5 - 5.0 g/dL [facility] ALP [Catalytic activity/Vol] 27 U/L Low 38 - 126 U/L [facility] ALT [Catalytic activity/Vol] 10 U/L 0 - 34 U/L [facility] Anion gap [Moles/Vol] 8 mmol/L 3 - 13 mmol/L [facility] AST [Catalytic activity/Vol] 19 U/L 15 - 46 U/L [facility] Bilirubin [Mass/Vol] 0.4 mg/dL 0.2 - 1 .3 mg/dL [facility] Calcium [Mass/Vol] 8.9 mg/dL 8.4 - 10. 4 mg/dL [facility] Chloride [Moles/Vol] 110 mmol/L High 98 - 10 7 mmol/L [facility] CO2 [Moles/Vol] 23 mmol/L 22 - 30 mmol/L [facility] Creatinine [Mass/Vol] 0.69 mg/dL 0.52 - 1.04 mg/dL [facility] GFR/1.73 sq M.predicted MDRD (S/P/Bld) [Vol rate/Area] - PINF [facility] Comment on above: Calculation based on the Chronic Kidney Disease Epidemiology Collaboration (CKD-EPI) equation refit without adjustment for race Glucose [Mass/Vol] 90 mg/dL 70 - 100 mg/dL [facility] Interpretation and review of laboratory results Abnormal [facility] Potassium [Moles/Vol] 3.6 mmol/L 3.5 - 5.1 mmol/L [facility] Protein [Mass/Vol] 5.6 g/dL Low 6.3 - 8.2 g/dL [facility] Sodium [Moles/Vol] 142 mmol/L 135 - 145 mmol/L [facility] Urea nitrogen [Mass/Vol] 13 mg/dL 7 - 17 mg/dL [facility] Laboratory - Drug toxicology on 08-04-2022 lamoTRIgine [Mass/Vol] 5.1 ug/mL 3.0 - 15.0 ug/mL [facility] Comment on above: INTERPRETIVE INFORMA TION: Lamotrigine Therapeutic Range: 3.0-15.0 ug/mL Toxic: Greater than or equal to 20 ug/mL Pharmacokinetics varies widely, particularly with co-medications and/or compromised renal function. Adverse effects may include dizziness, somnolence, nausea and vomiting. Performed By: [facility] [address] [place] [id number] Vacation Guide: Maya Mendieta MD, PhD No Panel Informationon 08-04 [facility] CARECOORDon 08-03-2022 [facility] Managment [facility] Assessment Date: 08/03/2022 Patient Name: Doug Flanagan : 1990 Patient Information Source of Information: Patient Cognition/Language: WFL - Within Functional Limits Permission given to speak with patient employment representative/caregiver as indicated: Yes Confirmation of Payer with patient/family: Yes [facility] Confirmation of Primary Care Physician: [...] IV MEDICATION. EXPECTING CALL FROM HER [facility] [employer] F[employer]DER. I ALSO TRIED TO CALL DR GILMORE'S OFFICE TO CHECK ON STATUS OF MEDICATION, OFFICE IS CLOSED TODAY. WILL TRY TOMORROW. ANTICIPATE DISCHARGE TO HOME WHEN COMPLETED PLASMAPHERESIS TREATMENTS. Michaela Caceres RN Normal [facility] CBC W Auto Differential pane l (Bld)on 08-03-2022 Basophils (Bld) [#/Vol] 0.0 10*3/uL 0.0 - 0.2 10*3/uL [facility] Basophils/100 WBC (Bld) 0.4 % 0.0 - 2.0 % [facility] Eosinophils (Bld) [#/Vol] 0.3 10*3/uL 0.0 - 0.5 10*3/uL [facility] Eosinophils/100 WBC (Bld) 4.5 % 1.0 - 6.0 % [facility] Erythrocyte distribution width (RBC) [Ratio] 14.3 % 11.5 - 14.5 % [facility] Hematocrit (Bld) [Volume fraction] 37.4 % 35.0 - 47.0 % [facility] Hemoglobin (Bld) [Mass/Vol] 12.4 g/dL 11.7 - 16.0 g/dL [facility] Interpretation and review of laboratory results Normal [facility] Lymphocytes (Bld) [#/Vol] 1.8 10*3/uL 1.0 - 4.3 10*3/uL [facility] Lymphocytes/100 WBC (Bld) 23.9 % 20.0 - 40.0 % [facility] MCH (RBC) [Entitic mass] 28.3 pg 26.0 - 34.0 pg [facility] MCHC (RBC) [Mass/Vol] 33.1 % 32.0 - 36.0 % [facility] MCV (RBC) [Entitic vol] 85.5 fL 80.0 - 98.0 fL [facility] Monocytes (Bld) [#/Vol] 0.5 10*3/uL 0.0 - 0.8 10*3/uL [facility] Monocytes/100 WBC (Bld) 6.3 % 2.0 - 10.0 % [facility] Neutrophils (Bld) [#/Vol] 5.0 10*3/uL 1.8 - 7.0 10*3/uL [facility] Neutrophils/100 WBC (Bld) 64.9 % 40.0 - 80.0 % [facility] Nucleated RBC/100 WBC (Bld) [Ratio] 0.0 % [facility] Platelet mean volume (Bld) [Entitic vol] 7.7 fL 7.4 - 12.4 fL [facility] Platelets (Bld) [#/Vol] 210 10*3/uL 140 - 440 10*3/uL [facility] RBC (Bld) [#/Vol] 4.37 10*6/uL 3.8 - 5.20 10*6/uL [facility] WBC (Bld) [#/Vol] 7.6 10*3/uL 3.6 - 10.7 10*3/uL [facility] Comprehensive metabolic 1998 panelon 08-03-2022 Albumin [Mass/Vol] 4.3 g/dL 3.5 - 5.0 g/dL [facility] ALP [Catalytic activity/Vol] 38 U/L 38 - 126 U/L [facility] ALT [Catalytic activity/Vol] 11 U/L 0 - 34 U/L [facility] Anion gap [Moles/Vol] 10 mmol/L 3 - 13 mmol/L [facility] AST [Catalytic activity/Vol] 22 U/L 15 - 46 U/L [facility] Bilirubin [Mass/Vol] 0.3 mg/dL 0.2 - 1 .3 mg/dL [facility] Calcium [Mass/Vol] 8.8 mg/dL 8.4 - 10. 4 mg/dL [facility] Chloride [Moles/Vol] 110 mmol/L High 98 - 10 7 mmol/L [facility] CO2 [Moles/Vol] 21 mmol/L Low 22 - 30 mmol/L [facility] Creatinine [Mass/Vol] 0.68 mg/dL 0.52 - 1.04 mg/dL [facility] GFR/1.73 sq M.predicted MDRD (S/P/Bld) [Vol rate/Area] - PINF [facility] Comment on above: Calculation based on the Chronic Kidney Disease Epidemiology Collaboration (CKD-EPI) equation refit without adjustment for race Glucose [Mass/Vol] 93 mg/dL 70 - 100 mg/dL [facility] Interpretation and review of laboratory results Abnormal [facility] Potassium [Moles/Vol] 3.6 mmol/L 3.5 - 5.1 mmol/L [facility] Protein [Mass/Vol] 6.2 g/dL Low 6.3 - 8.2 g/dL [facility] Sodium [Moles/Vol] 141 mmol/L 135 - 145 mmol/L [facility] Urea nitrogen [Mass/Vol] 9 mg/dL 7 - 17 mg/dL [facility] Consulton 08-03-2022 Consult Department of Psychi [...] 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 Pt reported that [...] services. Risk Management: no special precautions Normal [facility] Progress Noteon 08-03-2022 Progress Note Indications for [...] dextrose (ACD-A) infusion, 100-200 mL/hr, IntraCATHeter, Continuous, Perla Cantor MD, Last Rate: 100 mL/hr at 08/01/22 1146, 1,000 mL at 08/01/22 1146 citrate dextrose (ACD-A) infusion, 100-200 mL/hr, CRRT, Continuous, Perla Cantor MD, Last Rate: 1,000 mL/hr at 08/03/22 1326, 1,000 mL/hr at 08/03/22 1326 docusate sodium (Colace) capsule 100 mg, 100 mg, Oral, BID, Tanner Wnag MD, 100 mg at 08/03/22 0919 escitalopram (Lexapro) tablet 10 mg, 10 mg, Oral, Daily, Antwon Nascimento DO, 10 mg at 08/02/22 2123 heparin flush injection 100 Units, 100 Units, IntraCATHeter, q12h, Juliana Tavares MD, 100 Units at 08/03/22 0911 heparin flush injection 100 Units, 100 Units, IntraCATHeter, PRN, Juliana Tavares MD heparin injection 2,100 Units, 2,100 Units, IntraCATHeter, PRN, Perla Cantor MD, 2,100 Units at 08/03/22 1404 heparin injection 2,200 Units, 2,200 Units, IntraCATHeter, PRN, Perla Cantor MD, 2,200 Units at 08/03/22 1404 [...] Nightly, Antwon Nascimento DO, 250 mg at 08/02/222122 LORazepam (Ativan) tablet 1 mg, 1 mg, Oral, q12h PRN, Vinuth Koduru, DO, 1 mg at 08/03/22 115 ondansetron ODT (Zofran-ODT) disintegrating tablet 4 mg, 4 mg, Oral, q8h PRN OR ondansetron (Zofran) injection 4 mg, 4 mg, IntraVENous, q6h PRN, Vinuth Koduru, DO, 4 mg at 07/31/22 1628 OXcarbazepine (Trileptal) tablet 150 mg, 150 mg, Oral, Daily, Vinuth Koduru, DO, 150 mg at 08/02/222123 polyethylene glycol (PEG) 3350 (Miralax) packet 17 [...] Nightly, Vinuth Koduru, DO, 300 mg at 08/02/222123 Objective Physical Exam Physical Exam NAD LIJTDC [...] TDC removed on Wednesday prior to discharge Perla Cantor MD 08/03/2022 4:[address] [facility] Progress Note #3 TPE treatment completed as ordered Flowsheet in bedside chart [facility] CBC W Auto Differential pane l (Bld)on 08-02-2022 Basophils (Bld) [#/Vol] 0.0 10*3/uL 0.0 - 0.2 10*3/uL [facility] Basophils/100 WBC (Bld) 0.5 % 0.0 - 2.0 % [facility] Eosinophils (Bld) [#/Vol] 0.3 10*3/uL 0.0 - 0.5 10*3/uL [facility] Eosinophils/100 WBC (Bld) 3.8 % 1.0 - 6.0 % [facility] Erythrocyte distribution width (RBC) [Ratio] 14.0 % 11.5 - 14.5 % [facility] Hematocrit (Bld) [Volume fraction] 36.3 % 35.0 - 47.0 % [facility] Hemoglobin (Bld) [Mass/Vol] 12.0 g/dL 11.7 - 16.0 g/dL [facility] Interpretation and review of laboratory results Normal [facility] Lymphocytes (Bld) [#/Vol] 1.7 10*3/uL 1.0 - 4.3 10*3/uL [facility] Lymphocytes/100 WBC (Bld) 22.3 % 20.0 - 40.0 % [facility] MCH (RBC) [Entitic mass] 28.1 pg 26.0 - 34.0 pg [facility] MCHC (RBC) [Mass/Vol] 33.0 % 32.0 - 36.0 % [facility] MCV (RBC) [Entitic vol] 85.2 fL 80.0 - 98.0 fL [facility] Monocytes (Bld) [#/Vol] 0.5 10*3/uL 0.0 - 0.8 10*3/uL [facility] Monocytes/100 WBC (Bld) 7.0 % 2.0 - 10.0 % [facility] Neutrophils (Bld) [#/Vol] 5.0 10*3/uL 1.8 - 7.0 10*3/uL [facility] Neutrophils/100 WBC (Bld) 66.4 % 40.0 - 80.0 % [facility] Nucleated RBC/100 WBC (Bld) [Ratio] 0.0 % [facility] Platelet mean volume (Bld) [Entitic vol] 7.7 fL 7.4 - 12.4 fL [facility] Platelets (Bld) [#/Vol] 192 10*3/uL 140 - 440 10*3/uL [facility] RBC (Bld) [#/Vol] 4.26 10*6/uL 3.8 - 5.20 10*6/uL [facility] WBC (Bld) [#/Vol] 7.5 10*3/uL 3.6 - 10.7 10*3/uL [facility] Comprehensive metabolic 1998 panelon 08-02-2022 Albumin [Mass/Vol] 4.0 g/dL 3.5 - 5.0 g/dL [facility] ALP [Catalytic activity/Vol] 32 U/L Low 38 - 126 U/L [facility] ALT [Catalytic activity/Vol] 7 U/L 0 - 34 U/L [facility] Anion gap [Moles/Vol] 7 mmol/L 3 - 13 mmol/L [facility] AST [Catalytic activity/Vol] 19 U/L 15 - 46 U/L [facility] Bilirubin [Mass/Vol] 0.4 mg/dL 0.2 - 1 .3 mg/dL [facility] Calcium [Mass/Vol] 8.8 mg/dL 8.4 - 10. 4 mg/dL [facility] Chloride [Moles/Vol] 111 mmol/L High 98 - 10 7 mmol/L [facility] CO2 [Moles/Vol] 22 mmol/L 22 - 30 mmol/L [facility] Creatinine [Mass/Vol] 0.66 mg/dL 0.52 - 1.04 mg/dL [facility] GFR/1.73 sq M.predicted MDRD (S/P/Bld) [Vol rate/Area] - PINF [facility] Comment on above: Calculation based on the Chronic Kidney Disease Epidemiology Collaboration (CKD-EPI) equation refit without adjustment for race Glucose [Mass/Vol] 87 mg/dL 70 - 100 mg/dL [facility] Interpretation and review of laboratory results Abnormal [facility] Potassium [Moles/Vol] 3.6 mmol/L 3.5 - 5.1 mmol/L [facility] Protein [Mass/Vol] 5.6 g/dL Low 6.3 - 8.2 g/dL [facility] Sodium [Moles/Vol] 141 mmol/L 135 - 145 mmol/L [facility] Urea nitrogen [Mass/Vol] 9 mg/dL 7 - 17 mg/dL [facility] ESR (Bld) [Velocity]Ordered By: Neetu Guillaume on 08-02-2022 Interpretation and review of laboratory results Normal [facility] Sed Rate [facility] Laboratory - Chemistry and C hemistry - challengeon 08-02-2022 Glucose [Mass/Vol] 98 mg/dL 70 - 100 mg/dL [facility] No Panel Informationon 08-02 Interpretation and review of laboratory results Normal [facility] Performed by: [facility], [address] [place] [address], [place] [facility] CLIA ID: [id number] [facility] Progress Noteon 08-02-2022 Progress Note Neurology [...] review earlier neurology consultation note. Thank you. [facility] Progress Note ---- -------- Attestation with edits [...] Value Ref (more content not included)... Normal [facility] CBC W Auto Differential pane l (Bld)on 08-01-2022 Basophils (Bld) [#/Vol] 0.0 10*3/uL 0.0 - 0.2 10*3/uL [facility] Basophils/100 WBC (Bld) 0.6 % 0.0 - 2.0 % [facility] Eosinophils (Bld) [#/Vol] 0.2 10*3/uL 0.0 - 0.5 10*3/uL [facility] Eosinophils/100 WBC (Bld) 2.6 % 1.0 - 6.0 % [facility] Erythrocyte distribution width (RBC) [Ratio] 14.1 % 11.5 - 14.5 % [facility] Hematocrit (Bld) [Volume fraction] 35.2 % 35.0 - 47.0 % [facility] Hemoglobin (Bld) [Mass/Vol] 11.7 g/dL 11.7 - 16.0 g/dL [facility] Interpretation and review of laboratory results Normal [facility] Lymphocytes (Bld) [#/Vol] 1.8 10*3/uL 1.0 - 4.3 10*3/uL [facility] Lymphocytes/100 WBC (Bld) 28.1 % 20.0 - 40.0 % [facility] MCH (RBC) [Entitic mass] 28.2 pg 26.0 - 34.0 pg [facility] MCHC (RBC) [Mass/Vol] 33.3 % 32.0 - 36.0 % [facility] MCV (RBC) [Entitic vol] 84.9 fL 80.0 - 98.0 fL [facility] Monocytes (Bld) [#/Vol] 0.5 10*3/uL 0.0 - 0.8 10*3/uL [facility] Monocytes/100 WBC (Bld) 7.2 % 2.0 - 10.0 % [facility] Neutrophils (Bld) [#/Vol] 4.0 10*3/uL 1.8 - 7.0 10*3/uL [facility] Neutrophils/100 WBC (Bld) 61.5 % 40.0 - 80.0 % [facility] Nucleated RBC/100 WBC (Bld) [Ratio] 0.1 % [facility] Platelet mean volume (Bld) [Entitic vol] 7.8 fL 7.4 - 12.4 fL [facility] Platelets (Bld) [#/Vol] 192 10*3/uL 140 - 440 10*3/uL [facility] RBC (Bld) [#/Vol] 4.15 10*6/uL 3.8 - 5.20 10*6/uL [facility] WBC (Bld) [#/Vol] 6.4 10*3/uL 3.6 - 10.7 10*3/uL [facility] Comprehensive metabolic 1998 panelon 08-01-2022 Albumin [Mass/Vol] 3.8 g/dL 3.5 - 5.0 g/dL [facility] ALP [Catalytic activity/Vol] 44 U/L 38 - 126 U/L [facility] ALT [Catalytic activity/Vol] 8 U/L 0 - 34 U/L [facility] Anion gap [Moles/Vol] 8 mmol/L 3 - 13 mmol/L [facility] AST [Catalytic activity/Vol] 16 U/L 15 - 46 U/L [facility] Bilirubin [Mass/Vol] 0.2 mg/dL 0.2 - 1 .3 mg/dL [facility] Calcium [Mass/Vol] 8.4 mg/dL 8.4 - 10. 4 mg/dL [facility] Chloride [Moles/Vol] 112 mmol/L High 98 - 10 7 mmol/L [facility] CO2 [Moles/Vol] 21 mmol/L Low 22 - 30 mmol/L [facility] Creatinine [Mass/Vol] 0.69 mg/dL 0.52 - 1.04 mg/dL [facility] GFR/1.73 sq M.predicted MDRD (S/P/Bld) [Vol rate/Area] - PINF [facility] Comment on above: Calculation based on the Chronic Kidney Disease Epidemiology Collaboration (CKD-EPI) equation refit without adjustment for race Glucose [Mass/Vol] 92 mg/dL 70 - 100 mg/dL [facility] Interpretation and review of laboratory results Abnormal [facility] Potassium [Moles/Vol] 3.7 mmol/L 3.5 - 5.1 mmol/L [facility] Protein [Mass/Vol] 5.8 g/dL Low 6.3 - 8.2 g/dL [facility] Sodium [Moles/Vol] 140 mmol/L 135 - 145 mmol/L [facility] Urea nitrogen [Mass/Vol] 8 mg/dL 7 - 17 mg/dL [facility] MR Brain WO and W contrast I Von 08-01-2022 Normal MRI of the brain with and without contrast. Report Dictated on Electronically Signed By: Khurram Krewson Electronically Signed Date/Time: 08/01/2022 11:02 AM EDT [facility] Patient Name: DOUG FLANAGAN : 1990 [...] Sinuses/mastoids: Clear Bones: No pathologic marrow infiltration. [facility] Khurram Segura M D - 08/01/2022 [...] Electronically Signed Date/Time: 08/01/2022 11:02 AM EDT [facility] Radiology Study observation (narrative) [facility] MR Cervical spine WO and W c [...] osseous lesions. Canal and foramina: No stenosis. [facility] Khurram Segura M D - 08/01/2022 Patient Name: DOUG FLANAGAN : 1990 [facility]#: [id number] Exam Date/Time: 08/01/2022 10:36 Procedure: MR CERVICAL [...] Electronically Signed Date/Time: 08/01/2022 11:08 AM EDT [facility] Radiology Study observation (narrative) [facility] MR Thoracic spine WO and W c [...] osseous lesions. Canal and foramina: No stenosis. [facility] Khurram Segura M D [...] Segura Electronically Signed Date/Time: 08/01/2022 11:08 AM T [facility] Radiology Study observation (narrative) [facility] No Panel Informationon 08-01 1. Normal appearance of the cervical and thoracic spinal cord. Negative study. 2. Incidental 9 mm osseous lesion in the parasymphysis of the left hemimandible which is most likely a odontogenic inflammatory lesion but otherwise not characterized on this exam. Report Dictated on Electronically Signed By: Khurram Segura Electronically Signed Date/Time: 08/01/2022 11:08 AM T [facility] Progress Noteon 08-01-2022 Progress Note Second pheresis treatment completed. Tolerated well. Post bp 102/64. See bedside chart for vitals. Normal [facility] Progress Note Pt. NIF: -40 Normal [facility] Progress Note Nutrition rescreen completed. Chart reviewed. Patient to be monitored and followed by the diet environmental health technician. Normal [facility] Progress Note ---- -------- Attestation with edits [...] physical, independen (more content not included)... Normal [facility] CBC W Auto Differential pane l (Bld)Ordered By: Rickey Edward on 07-31-2022 Basophils (Bld) [#/Vol] 0.0 10*3/uL 0.0 - 0.2 10*3/uL [facility] Basophils/100 WBC (Bld) 0.4 % 0.0 - 2.0 % [facility] Eosinophils (Bld) [#/Vol] 0.1 10*3/uL 0.0 - 0.5 10*3/uL [facility] Eosinophils/100 WBC (Bld) 1.0 % 1.0 - 6.0 % [facility] Erythrocyte distribution width (RBC) [Ratio] 13.9 % 11.5 - 14.5 % [facility] Hematocrit (Bld) [Volume fraction] 38.9 % 35.0 - 47.0 % [facility] Hemoglobin (Bld) [Mass/Vol] 13.0 g/dL 11.7 - 16.0 g/dL [facility] Interpretation and review of laboratory results Abnormal [facility] Lymphocytes (Bld) [#/Vol] 1.4 10*3/uL 1.0 - 4.3 10*3/uL [facility] Lymphocytes/100 WBC (Bld) 13.9 % Low 20.0 - 40.0 % [facility] MCH (RBC) [Entitic mass] 28.2 pg 26.0 - 34.0 pg [facility] MCHC (RBC) [Mass/Vol] 33.4 % 32.0 - 36.0 % [facility] MCV (RBC) [Entitic vol] 84.5 fL 80.0 - 98.0 fL [facility] Monocytes (Bld) [#/Vol] 0.7 10*3/uL 0.0 - 0.8 10*3/uL [facility] Monocytes/100 WBC (Bld) 7.4 % 2.0 - 10.0 % [facility] Neutrophils (Bld) [#/Vol] 7.8 10*3/uL High 1.8 - 7.0 10*3/uL [facility] Neutrophils/100 WBC (Bld) 77.3 % 40.0 - 80.0 % [facility] Nucleated RBC/100 WBC (Bld) [Ratio] 0.0 % [facility] Platelet mean volume (Bld) [Entitic vol] 7.6 fL 7.4 - 12.4 fL [facility] Platelets (Bld) [#/Vol] 202 10*3/uL 140 - 440 10*3/uL [facility] RBC (Bld) [#/Vol] 4.60 10*6/uL 3.8 - 5.20 10*6/uL [facility] WBC (Bld) [#/Vol] 10.0 10*3/uL 3.6 - 10.7 10*3/uL [facility] Comprehensive metabolic 1998 panelon 07-31-2022 Albumin [Mass/Vol] 4.1 g/dL 3.5 - 5.0 g/dL [facility] ALP [Catalytic activity/Vol] 43 U/L 38 - 126 U/L [facility] ALT [Catalytic activity/Vol] 8 U/L 0 - 34 U/L [facility] Anion gap [Moles/Vol] 8 mmol/L 3 - 13 mmol/L [facility] AST [Catalytic activity/Vol] 17 U/L 15 - 46 U/L [facility] Bilirubin [Mass/Vol] 0.7 mg/dL 0.2 - 1 .3 mg/dL [facility] Calcium [Mass/Vol] 8.6 mg/dL 8.4 - 10. 4 mg/dL [facility] Chloride [Moles/Vol] 109 mmol/L High 98 - 10 7 mmol/L [facility] CO2 [Moles/Vol] 22 mmol/L 22 - 30 mmol/L [facility] Creatinine [Mass/Vol] 0.67 mg/dL 0.52 - 1.04 mg/dL [facility] GFR/1.73 sq M.predicted MDRD (S/P/Bld) [Vol rate/Area] - PINF [facility] Comment on above: Calculation based on the Chronic Kidney Disease Epidemiology Collaboration (CKD-EPI) equation refit without adjustment for race Glucose [Mass/Vol] 94 mg/dL 70 - 100 mg/dL [facility] Interpretation and review of laboratory results Abnormal [facility] Potassium [Moles/Vol] 3.3 mmol/L Low 3.5 - 5.1 mmol/L [facility] Protein [Mass/Vol] 5.9 g/dL Low 6.3 - 8.2 g/dL [facility] Sodium [Moles/Vol] 139 mmol/L 135 - 145 mmol/L [facility] Urea nitrogen [Mass/Vol] 8 mg/dL 7 - 17 mg/dL [facility] Consulton 07-31-2022 Consult Renal Consult 33 [...] treatments every other day Hypokalemia- replace Normal [facility] Consult ---- -------- Attestation signed by Lupe [...] Name: Doug Flanagan Patient : 1990 Acct: [id number] Date of Admission: 07/30/2022 Room/Bed: PCP: DONNA [...] wheezing. Cardiac: No (more content not included)... [facility] ED Nursing Noteon 07-31-2022 ED Nursing Note Transport at bedside to take the pt to . Pt is calm and cooperative at this time, respirations even and unlabored. Rupal Garcia RN 07/31/[address] [facility] ED Nursing Note Pt and family update d on the plan of care. Pt is lying in bed resting comfortably, respirations even and unlabored. Pt denies any needs at this time. Rupal Garcia RN 07/31/[address] [facility] ED Nursing Note Pt is in for transpo rt. Rupal Garcia RN 07/31/[address] [facility] ED Nursing Note Internal medicine at bedside. Rupal Garcia RN 07/31/[address] [facility] ED Nursing Note Patient laying in be d resting comfortably, respirations even and unlabored. No sx of distress noted. Pt medicated per order. Pt and family deny any needs at this time. No new orders. Rupal Garcia RN 07/31/[address] [facility] ED Nursing Note Admitting at bedside . Sissy Weeks RN 07/31/[address] [facility] ED Nursing Note Introduced self to p t. Pt is laying in bed resting comfortably, respirations even and unlabored. No sx of distress noted at this time. Patient denies any needs. No new orders at this moment. Rupal Garcia RN 07/31/[address] [facility] ED Nursing Note Report received from nightssdft RN. Rupal Garcia RN 07/31/[address] [facility] ED Nursing Note Patient provided wit h breakfast menu. Family at bedside. Family provided with coffee. Patients ice pack was refilled. Patient has no further needs at this time. Micki Michael RN 07/31/[address] [facility] Laboratory - Chemistry and C hemistry - challengeon 07-31-2022 Magnesium [Mass/Vol] 1.7 mg/dL 1.6 - 2 .3 mg/dL [facility] Magnesium [Mass/Vol]on 07-31 Interpretation and review of laboratory results Normal [facility] Progress Noteon 07-31-2022 Progress Note NIF: -35 Normal [facility] Progress Note NIF -20 3 attempts made Normal [facility] Basic metabolic 1998 panelon 07-30-2022 Anion gap [Moles/Vol] 10 mmol/L 3 - 13 mmol/L [facility] Calcium [Mass/Vol] 9.2 mg/dL 8.4 - 10. 4 mg/dL [facility] Chloride [Moles/Vol] 108 mmol/L High 98 - 10 7 mmol/L [facility] CO2 [Moles/Vol] 21 mmol/L Low 22 - 30 mmol/L [facility] Creatinine [Mass/Vol] 0.62 mg/dL 0.52 - 1.04 mg/dL [facility] GFR/1.73 sq M.predicted MDRD (S/P/Bld) [Vol rate/Area] - PINF [facility] Comment on above: Calculation based on the Chronic Kidney Disease Epidemiology Collaboration (CKD-EPI) equation refit without adjustment for race Glucose [Mass/Vol] 94 mg/dL 70 - 100 mg/dL [facility] Interpretation and review of laboratory results Abnormal [facility] Potassium [Moles/Vol] 3.5 mmol/L 3.5 - 5.1 mmol/L [facility] Sodium [Moles/Vol] 139 mmol/L 135 - 145 mmol/L [facility] Urea nitrogen [Mass/Vol] 10 mg/dL 7 - 17 mg/dL [facility] CBC W Auto Differential pane l (Bld)Ordered By: Damian Moon on 07-30-2022 Basophils (Bld) [#/Vol] 0.1 10*3/uL 0.0 - 0.2 10*3/uL [facility] Basophils/100 WBC (Bld) 0.5 % 0.0 - 2.0 % [facility] Eosinophils (Bld) [#/Vol] 0.1 10*3/uL 0.0 - 0.5 10*3/uL [facility] Eosinophils/100 WBC (Bld) 1.2 % 1.0 - 6.0 % [facility] Erythrocyte distribution width (RBC) [Ratio] 14.2 % 11.5 - 14.5 % [facility] Hematocrit (Bld) [Volume fraction] 42.1 % 35.0 - 47.0 % [facility] Hemoglobin (Bld) [Mass/Vol] 13.6 g/dL 11.7 - 16.0 g/dL [facility] Interpretation and review of laboratory results Abnormal [facility] Lymphocytes (Bld) [#/Vol] 1.7 10*3/uL 1.0 - 4.3 10*3/uL [facility] Lymphocytes/100 WBC (Bld) 15.5 % Low 20.0 - 40.0 % [facility] MCH (RBC) [Entitic mass] 27.7 pg 26.0 - 34.0 pg [facility] MCHC (RBC) [Mass/Vol] 32.4 % 32.0 - 36.0 % [facility] MCV (RBC) [Entitic vol] 85.6 fL 80.0 - 98.0 fL [facility] Monocytes (Bld) [#/Vol] 0.7 10*3/uL 0.0 - 0.8 10*3/uL [facility] Monocytes/100 WBC (Bld) 6.7 % 2.0 - 10.0 % [facility] Neutrophils (Bld) [#/Vol] 8.3 10*3/uL High 1.8 - 7.0 10*3/uL [facility] Neutrophils/100 WBC (Bld) 76.1 % 40.0 - 80.0 % [facility] Nucleated RBC/100 WBC (Bld) [Ratio] 0.0 % [facility] Platelet mean volume (Bld) [Entitic vol] 7.1 fL Low 7.4 - 12.4 fL [facility] Platelets (Bld) [#/Vol] 243 10*3/uL 140 - 440 10*3/uL [facility] RBC (Bld) [#/Vol] 4.92 10*6/uL 3.8 - 5.20 10*6/uL [facility] WBC (Bld) [#/Vol] 10.8 10*3/uL High 3.6 - 10.7 10*3/uL [facility] CBC panel Auto (Bld)on 07-30 Erythrocyte distribution width (RBC) [Ratio] 14.1 % 11.5 - 14.5 % [facility] Hematocrit (Bld) [Volume fraction] 39.7 % 35.0 - 47.0 % [facility] Hemoglobin (Bld) [Mass/Vol] 13.0 g/dL 11.7 - 16.0 g/dL [facility] Interpretation and review of laboratory results Normal [facility] MCH (RBC) [Entitic mass] 27.7 pg 26.0 - 34.0 pg [facility] MCHC (RBC) [Mass/Vol] 32.7 % 32.0 - 36.0 % [facility] MCV (RBC) [Entitic vol] 84.8 fL 80.0 - 98.0 fL [facility] Platelet mean volume (Bld) [Entitic vol] 7.4 fL 7.4 - 12.4 fL [facility] Platelets (Bld) [#/Vol] 254 10*3/uL 140 - 440 10*3/uL [facility] RBC (Bld) [#/Vol] 4.68 10*6/uL 3.8 - 5.20 10*6/uL [facility] WBC (Bld) [#/Vol] 6.6 10*3/uL 3.6 - 10.7 10*3/uL [facility] ECG 12-LEADon 07-30-2022 ECG 12-LEAD IMPRESSION: Sinus tachycardia Probable left atrial enlargement Borderline abnrm T, anterolateral leads NO st elevation or depression, t wave ivnersions in III, no stemi noted, normal intervals, unchanged from previous 3.14.19 Electronically Signed On 07-30-2022 17:22:51 EDT by Rivka Cid [facility] ED Nursing Noteon 07-30-2022 ED Nursing Note Called pharmacy requesting patients 6 o'clock medications. Spoke to Cory. He said he will send them. Leslie Casillas RN 07/30/222038 Normal [facility] ED Nursing Note Patient up to [facility] fo r large BM, family at bedside. Maria L Hightower RN 07/30/221948 [facility] ED Nursing Note Patient back [facility]. Leslie Casillas RN 07/30/22 376 Normal [facility] ED Nursing Note Patient had episode of emesis. Order for zofran in [facility]. Patient has IV port I was going to access before going for infusion. After gathering supplies At bedside. Transport arrived shortly after to take patient for infusion. Gave patient ODT zofrramírez and patient transported to dialysis. Leslie Casillas RN 07/30/[address] [facility] ED Nursing Note Bed: 26 Expected date: Expected time: Means of arrival: Comments: triage Cielo Recinos RN 07/30/[address] [facility] ED Provider Noteon ED Provider Note Emergency Department Encounter [facility] EMERGENCY DEPT Patient: Doug Flanagan : 1990 [...] dictating provider for clarification.) Rivka Cid, DO [employer] Rivka Cid DO 07/30/[address] [facility] ED Provider Note EMERGENCY DEPARTMENT ENCOUNTER Pt [...] APPENDECTOMY 2005 ? HIP ARTHROSCOPY (HISTORICAL) Right 2013 ? OTHER SURGICAL HISTORY Right 07/22/2018 THORACIS [...] lower l (more content not included)... Normal [facility] ED Provider Note Emergency Department Encounter [facility] EMER[facility]ENC[facility] Patient: Doug Flanagan : 1990 [...] dictating provider for clarification) Edwige Bob PA-C [facility] Edwige Bob PA-C 07/30/22 1443 Normal [facility] HBV surface Ab IA Qnon 07-30 Interpretation: <8.0 Non-Reactive 8.0-11.9 Equivocal >= 12.0 Ab Detected Note: If an equivocal result is interpreted, an antibody status is unable to be determined. Collect new specimen if clinically indicated. [facility] HBV surface Ag IA Qlon 07-30 Interpretation and review of laboratory results Normal [facility] IR CVC tunneled dialysis cat heter placementon [...] Electronically Signed Date/Time: 07/30/2022 10:35 AM EDT [employer] [facility] Patient Name: DOUG FLANAGAN : 1990 Exam Date/Time: 07/30/2022 10:10 Procedure: IR CVC TUNNELED DIALYSIS CATHETER PLACEMENT Ordering Provider: CANTOR PRETI Reason For Exam: EXACERBATION OF MYASTHENIA GRAVIS PROCEDURE: Tunneled central venous catheter placement Procedural Personnel Attending physician(s): Virgil Valverde Indication: Plasmapheresis for myasthenia gravis Additional clinical history: None Complications: No immediate complications. Adeze Virgil Valverde MD - 07/30/2022 Patient Name: DOUG FLANAGAN : 1990 [facility]#: [id number] Exam Date/Time: 07/30/2022 10:10 Procedure: IR CVC [...] Electronically Signed Date/Time: 07/30/2022 10:35 AM EDT [facility] Radiology Study observation (narrative) [facility] IR CVC tunneled dialysis cat heter placementOrdered By: Virgil Valverde on 07-30-2022 [facility] Work Phone: Laboratory - Chemistry and C hemistry - challengeon 07-30-2022 HCG.beta subunit Qn Females < 5 mIU/mL [facility] Magnesium [Mass/Vol] 1.9 mg/dL 1.6 - 2 .3 mg/dL [facility] Laboratory - Microbiology an d Antimicrobial susceptibilityon 07-30-2022 HBV surface Ab IA Qn 314.1 m[IU]/mL mIU/mL [facility] HBV surface Ag IA Ql Not detected Not Detected [facility] Magnesium [Mass/Vol]on 07-30 Interpretation and review of laboratory results Normal [facility] No Panel Informationon 07-30 [facility] Sinus tachycardia Probable left atrial enlargement Borderline abnrm T, anterolateral leads NO st elevation or depression, t wave ivnersions in III, no stemi noted, normal intervals, unchanged from previous 07.14.18 Electronically Signed On 07-30-2022 17:22:51 EDT by Rivka Villasenor, - 07/30/2022 IMPRESSION: Sinus tachycardia Probable left atrial enlargement Borderline abnrm T, anterolateral leads NO st elevation or depression, t wave ivnersions in III, no stemi noted, normal intervals, unchanged from previous 07.14.18 Electronically Signed On 07-30-2022 17:22:51 EDT by Rivka [employer]IO [employer] Values in should double every 2 to [...] or monitor tumors or gestational trophoblastic disease. [employer] No Panel InformationOrdered By: Rivka Cid on 07-30-2022 P [place] 38 degrees [employer] Phone: GA Interval 185 ms [employer] Phone: QRS [place] 8 degrees [employer] Phone: QRSD Interval 95 ms [employer] Work Phone: QT Interval 348 ms [employer] Phone: QTC Interval 462 ms [employer] Phone: T Wave [place] 3 degrees [employer] Phone: [employer] Phone: Nursing Noteon 07-30-2022 Nursing Note Pt provided with discharge instructions and all questions answered. Steady, independent gait on unit. Discharged with all belongings. Pt discharge to registration via wheelchair by [place] with mother. Pt to go to dialysis. Normal [facility] Vital signsOrdered By: Irma Cid on 07-30-2022 Heart rate 105 /min bpm [employer] Phone: XR Chest 2 [employer] Radiology Study observation (narrative) [facility] No acute cardiopulmonary disease. Report Dictated on Electronically Signed By: Khurram Segura Electronically Signed Date/Time: 07/30/2022 4:11 PM EDT [facility] Patient Name: DOUG FLANAGAN : 1990 [...] lung consolidation, or pleural effusion. Bones: Unremarkable [facility] Khurram Segura M D - 07/30/2022 [...] Electronically Signed Date/Time: 07/30/2022 4:11 PM EDT [facility] XR Chest 2 ViewsOrdered By: Khurram Segura on 07-30-2022 [facility] [employer] Work Phone: [facility] 07-29-2022 DEBBIE Spoke with patient. Reviewed arrival time at 7:00 am to [facility] on 07-30-22. It is ok to have a light breakfast and take your morning medications. Directions given for Same Day Surgery. Follow signs around the hospital to Main Entrance which is located at [address] from [address]. You may use [employer]. Each patient to receive one validation ticket for [employer]. [facility] INR in Blood by Coagulation assayon 07-29-2022 INR Coag (Bld) [Relative time] 1.0 {INR} [facility] Laboratory - Coagulationon 0 07-29-2022 PT Coag (PPP) [Time] 12.8 s 11.7-14.9 [facility] Absolute lymphocyte countOrd ered By: ED PROVIDER on 07-17-2022 Lymphocytes Auto (Unsp spec) [#/Vol] 1.79 10*3/uL 0.83-4.51 [facility] Basophil percentageOrdered B y: ED PROVIDER on 07-17-2022 Basophil percentage 0 SEEN /hpf 0-5 [facility] Basophils/100 WBC (Bld) 0.5 % 0-1 [facility] Chloride [Moles/Vol] 111 mmol/L 98-107 [facility] Eosinophils/100 WBC (Bld) 1.5 % 0-5 [facility] Glucose [Mass/Vol] 89 mg/dL 74-106 [facility] Neutrophils (Bld) [#/Vol] 5.5 10*3/uL 2.0-7.7 [facility] Neutrophils/100 WBC (Bld) 68.4 % 47-70 [facility] Potassium [Moles/Vol] 3.4 mmol/L 3.5-5.1 [facility] Sodium [Moles/Vol] 140 mmol/L 136-145 [facility] WBC (Bld) [#/Vol] 8.1 10*3/uL 4.4-11.0 [facility] Basophil percentageOrdered B y: Dr. Posada on 07-17-2022 Bilirubin [Mass/Vol] 0.40 mg/dL 0.20-1.00 [facility] Comment on above: For patients on eltr ombopag therapy, use of Dimension [place] TBIL is not recommended. Protein [Mass/Vol] 7.6 g/dL 6.4-8.2 [facility] Beta hCG serum qualOrdered B y: ED PROVIDER on 07-17-2022 Beta HCG ( test) Ql Negative [facility] Bilirubin Test strip Ql (U)O rdered By: ED PROVIDER on 07-17-2022 Bilirubin Ql (U) Negative Negative [facility] Blood erythrocytes count (nu mber/volume)Ordered By: ED PROVIDER on 07-17-2022 RBC (Bld) [#/Vol] 4.91 10*6/uL 4.2-5.4 [facility] Blood hemoglobin measurement (mass/volume)Ordered By: ED PROVIDER on 07-17-2022 Hemoglobin (Bld) [Mass/Vol] 13.6 g/dL 12.0-15.0 [facility] Blood lymphocytes/100 leukoc ytesOrdered By: ED PROVIDER on 07-17-2022 Lymphocytes/100 WBC (Bld) 22.2 % 19-41 [facility] Blood monocytes/100 leukocyt esOrdered By: ED PROVIDER on 07-17-2022 Monocytes/100 WBC (Bld) 7.0 % 0-10 [facility] Blood platelet mean volumeOr dered By: ED PROVIDER on 07-17-2022 Platelet mean volume (Bld) [Entitic vol] 10.1 fL 6.2-12.0 [facility] Determination of erythrocyte mean corpuscular volume (MCV)Ordered By: ED PROVIDER on 07-17-2022 MCV (RBC) [Entitic vol] 85.1 fL 81-99 [facility] Direct bilirubinOrdered By: Dr. Posada on 07-17-2022 Bilirubin.direct [Mass/Vol] 0.06 mg/dL 0.00-0.30 [facility] Hematocrit Auto (Bld) [Volum e fraction]Ordered By: ED PROVIDER on 07-17-2022 Hematocrit (Bld) [Volume fraction] 41.8 % 37-47 [facility] Ketones Test strip Ql (U)Ord ered By: ED PROVIDER on 07-17-2022 Ketones Ql (U) 5 mg/dl Negative [facility] Laboratory - Chemistry and C hemistry - challengeOrdered By: Dr. Posada on 07-17-2022 ALP [Catalytic activity/Vol] 92 U/L 45-117 [facility] ALT [Catalytic activity/Vol] 19 U/L 13-56 [facility] Globulin (S) [Mass/Vol] 3.4 g/dL 2.2-4.2 [facility] Lipase [Catalytic activity/Vol] 161 U/L 73-393 [facility] Laboratory - Chemistry and C hemistry - challengeOrdered By: ED PROVIDER on 07-17-2022 CO2 [Moles/Vol] 21.0 mmol/L 21.0-32.0 [facility] Urea nitrogen/Creatinine [Mass ratio] 10.8 mg/mg 10-20 [facility] Laboratory - Hematology and Cell countsOrdered By: ED PROVIDER on 07-17-2022 Erythrocyte distribution width (RBC) [Entitic vol] 42.0 fL 35.1-43.9 [facility] Erythrocyte distribution width (RBC) [Ratio] 13.5 % 11.6-14.6 [facility] Immature granulocytes/100 WBC (Bld) 0.400 % 0.0-0.9 [facility] Comment on above: IG% - Immature Granu locytes (promyelocytes, myelocytes and metamyelocytes) > 1% indicates that a LEFT SHIFT is Present. MCH (RBC) [Entitic mass] 27.7 pg 27.0-32.0 [facility] Nucleated RBC/100 WBC (Bld) [Ratio] 0 % 0-5 [facility] MCHC Auto (RBC) [Mass/Vol]Or dered By: ED PROVIDER on 07-17-2022 MCHC (RBC) [Mass/Vol] 32.5 g/dL 32-36 [facility] Mucus LM Ql (Urine sed)Order ed By: ED PROVIDER on 07-17-2022 Mucus Ql (Urine sed) 0 SEEN /hpf [facility] Nitrite Test strip Ql (U)Ord ered By: ED PROVIDER on 07-17-2022 Nitrite Ql (U) Negative Negative [facility] No Panel InformationOrdered By: Dr. Posada on 07-17-2022 D-Dimer Quantitative (PE/DVT) < 0.27 FEU/ug/m 0.27-0.49 [facility] Comment on above: NORMAL D-Dimer level (<0.50) indicates no DVT or PE. Troponin I High Sensitivity 3 pg/mL 3.0-54.0 [facility] Comment on above: Please Note: New Jackie t Units and Gender Specific Reference Ranges. For more information see Policy Stat Procedure [place] High Sensitivity Troponin (TNIH) and attachments. No Panel InformationOrdered By: ED PROVIDER on 07-17-2022 Estimated Creatinine Clearance Calc 85.52 ml/min [facility] Estimated GFR (MDRD) Amer 115 mL/min >60 [facility] Comment on above: GFR Calc Estimated GFR (MDRD) Non-Af Amer 95 mL/min >60 [facility] Comment on above: Non- GFR Calc Platelets bldOrdered By: ED PROVIDER on 07-17-2022 Platelets (Bld) [#/Vol] 249 10*3/uL 150-450 [facility] Protein Test strip Ql (U)Ord ered By: ED PROVIDER on 07-17-2022 Protein Ql (U) Negative Negative [facility] Serum or plasma albumin traci urement (mass/volume)Ordered By: Dr. Posada on 07-17-2022 Albumin [Mass/Vol] 4.2 g/dL 3.2-5.0 [facility] Serum or plasma calcium traci urement (mass/volume)Ordered By: ED PROVIDER on 07-17-2022 Calcium [Mass/Vol] 9.4 mg/dL 8.5-10.1 [facility] Serum or plasma creatinine m easurement (mass/volume)Ordered By: ED PROVIDER on 07-17-2022 Creatinine [Mass/Vol] 0.74 mg/dL 0.55-1.02 [facility] Comment on above: The validity of the calculated GFR & GFRAA in patients over 70 years has not been determined. Clinical correlation is essential. Serum or plasma urea nitroge n measurement (mass/volume)Ordered By: ED PROVIDER on 07-17-2022 Urea nitrogen [Mass/Vol] 8 mg/dL 7-18 [facility] Squamous epithelial cells de tection in urine sediment by light microscopyOrdered By: ED PROVIDER on 07-17-2022 Epithelial cells.squamous LM Ql (Urine sed) 0-5 SEEN /hpf 5-10 [facility] Thin prep Papanicolaou smear with manual screeningOrdered By: Dr. Posada on 07-17-2022 Thin prep Papanicolaou smear with manual screening 15 U/L 15-37 [facility] Thin prep Papanicolaou smear with manual screeningOrdered By: ED PROVIDER on 07-17-2022 Thin prep Papanicolaou smear with manual screening 8 5-15 [facility] Urine blood detectionOrdered By: ED PROVIDER on 07-17-2022 RBC Ql (U) 10 /ul Negative [facility] RBC Ql (U) 0 SEEN /hpf 0-5 [facility] Urine clarityOrdered By: ED PROVIDER on 07-17-2022 Clarity (U) Clear Clear [facility] Urine color determinationOrd ered By: ED PROVIDER on 07-17-2022 Color (U) Yellow Yellow [facility] Urine glucose detectionOrder ed By: ED PROVIDER on 07-17-2022 Glucose Ql (U) Normal mg/dl Normal [facility] Urine leukocyte esterase det ection by dipstickOrdered By: ED PROVIDER on 07-17-2022 Leukocyte esterase Test strip Ql (U) 25 /ul Negative [facility] Urine pHOrdered By: ED PROVI EMBER on 07-17-2022 pH (U) 5.0 [pH] 5.0 - 8.0 [facility] Urine sediment bacteria coun t by microscopy (number/high power field)Ordered By: ED PROVIDER on 07-17-2022 Bacteria LM.HPF (Urine sed) [#/Area] 0 /[HPF] None Seen [facility] Urine specific gravity measu rementOrdered By: ED PROVIDER on 07-17-2022 Specific gravity (U) [Rel density] 1.010 1.002-1.03 0 [facility] Urobilinogen Auto test strip Ql (U)Ordered By: ED PROVIDER on 07-17-2022 Urobilinogen Ql (U) Normal mg/dl Normal [facility] Absolute lymphocyte countOrd ered By: Dr. Peck on 05-27-2022 Lymphocytes Auto (Unsp spec) [#/Vol] 1.51 10*3/uL 0.83-4.51 [facility] Basophil percentageOrdered B y: Dr. Peck on 05-27-2022 Basophil percentage 0-5 SEEN /hpf 0-5 [facility] Basophils/100 WBC (Bld) 0.5 % 0-1 [facility] Bilirubin [Mass/Vol] 0.30 mg/dL 0.20-1.00 [facility] Comment on above: For patients on eltr ombopag therapy, use of Dimension [place] TBIL is not recommended. Chloride [Moles/Vol] 112 mmol/L 98-107 [facility] Eosinophils/100 WBC (Bld) 1.5 % 0-5 [facility] Glucose [Mass/Vol] 103 mg/dL 74-106 [facility] Comment on above: Fasting Glucose resu lt from 100 to 125 mg/dL suggests IMPAIRED HOMEOSTASIS per A.D.A. criteria. Neutrophils (Bld) [#/Vol] 5.2 10*3/uL 2.0-7.7 [facility] Neutrophils/100 WBC (Bld) 70.1 % 47-70 [facility] Potassium [Moles/Vol] 3.6 mmol/L 3.5-5.1 [facility] Protein [Mass/Vol] 7.0 g/dL 6.4-8.2 [facility] Sodium [Moles/Vol] 139 mmol/L 136-145 [facility] WBC (Bld) [#/Vol] 7.5 10*3/uL 4.4-11.0 [facility] Beta hCG serum qualOrdered B y: Dr. Peck on 05-27-2022 Beta HCG ( test) Ql Negative [facility] Bilirubin Test strip Ql (U)O rdered By: Dr. Peck on 05-27-2022 Bilirubin Ql (U) Negative Negative [facility] Blood erythrocytes count (nu mber/volume)Ordered By: Dr. Peck on 05-27-2022 RBC (Bld) [#/Vol] 4.63 10*6/uL 4.2-5.4 [facility] Blood hemoglobin measurement (mass/volume)Ordered By: Dr. Peck on 05-27-2022 Hemoglobin (Bld) [Mass/Vol] 12.6 g/dL 12.0-15.0 [facility] Blood lymphocytes/100 leukoc ytesOrdered By: Dr. Peck on 05-27-2022 Lymphocytes/100 WBC (Bld) 20.2 % 19-41 [facility] Blood monocytes/100 leukocyt esOrdered By: Dr. Peck on 05-27-2022 Monocytes/100 WBC (Bld) 7.4 % 0-10 [facility] Blood platelet mean volumeOr dered By: Dr. Peck on 05-27-2022 Platelet mean volume (Bld) [Entitic vol] 9.3 fL 6.2-12.0 [facility] Determination of erythrocyte mean corpuscular volume (MCV)Ordered By: Dr. Peck on 05-27-2022 MCV (RBC) [Entitic vol] 84.7 fL 81-99 [facility] Direct bilirubinOrdered By: Dr. Peck on 05-27-2022 Bilirubin.direct [Mass/Vol] 0.09 mg/dL 0.00-0.30 [facility] Hematocrit Auto (Bld) [Volum e fraction]Ordered By: Dr. Peck on 05-27-2022 Hematocrit (Bld) [Volume fraction] 39.2 % 37-47 [facility] INR in Blood by Coagulation assayOrdered By: Dr. Peck on 05-27-2022 INR Coag (Bld) [Relative time] 1.1 {INR} [facility] Ketones Test strip Ql (U)Ord ered By: Dr. Peck on 05-27-2022 Ketones Ql (U) Negative Negative [facility] Laboratory - Chemistry and C hemistry - challengeOrdered By: Dr. Peck on 05-27-2022 ALP [Catalytic activity/Vol] 77 U/L 45-117 [facility] ALT [Catalytic activity/Vol] 18 U/L 13-56 [facility] CO2 [Moles/Vol] 20.0 mmol/L 21.0-32.0 [facility] Globulin (S) [Mass/Vol] 3.5 g/dL 2.2-4.2 [facility] Urea nitrogen/Creatinine [Mass ratio] 10.7 mg/mg 10-20 [facility] Laboratory - CoagulationOrde red By: Dr. Peck on 05-27-2022 aPTT Coag (Bld) [Time] 101.1 s 24.1-36.2 [facility] Comment on above: CRITICAL VALUE VERIF IED. CALLED TO GONSALO MENDEZ (ER)05/27/22 1148 Rivka Becerra.RESULTS READ BACK BY SAME. PT Coag (PPP) [Time] 13.5 s 11.7-14.9 [facility] Laboratory - Hematology and Cell countsOrdered By: Dr. Peck on 05-27-2022 Erythrocyte distribution width (RBC) [Entitic vol] 43.0 fL 35.1-43.9 [facility] Erythrocyte distribution width (RBC) [Ratio] 13.9 % 11.6-14.6 [facility] Immature granulocytes/100 WBC (Bld) 0.300 % 0.0-0.9 [facility] Comment on above: IG% - Immature Granu locytes (promyelocytes, myelocytes and metamyelocytes) > 1% indicates that a LEFT SHIFT is Present. MCH (RBC) [Entitic mass] 27.2 pg 27.0-32.0 [facility] Nucleated RBC/100 WBC (Bld) [Ratio] 0 % 0-5 [facility] MCHC Auto (RBC) [Mass/Vol]Or dered By: Dr. Peck on 05-27-2022 MCHC (RBC) [Mass/Vol] 32.1 g/dL 32-36 [facility] Mucus LM Ql (Urine sed)Order ed By: Dr. Peck on 05-27-2022 Mucus Ql (Urine sed) 0 SEEN /hpf [facility] Nitrite Test strip Ql (U)Ord ered By: Dr. Peck on 05-27-2022 Nitrite Ql (U) Negative Negative [facility] Comment on above: Previous reported re sult: Positive Edited by: TENZIN on 05/27/22:1158 AMENDED REPORT 05/27/22 1158 NITRITE UR previously reported as: Positive H No Panel InformationOrdered By: Dr. Peck on 05-27-2022 Estimated Creatinine Clearance Calc 97.36 ml/min [facility] Estimated GFR (MDRD) Amer 134 mL/min >60 [facility] Comment on above: GFR Calc Estimated GFR (MDRD) Non-Af Amer 111 mL/min >60 [facility] Comment on above: Non- GFR Calc Platelets bldOrdered By: Dr. Peck on 05-27-2022 Platelets (Bld) [#/Vol] 241 10*3/uL 150-450 [facility] Protein Test strip Ql (U)Ord ered By: Dr. Peck on 05-27-2022 Protein Ql (U) Negative Negative [facility] Comment on above: Previous reported re sult: 30 mg/dlEdited by: TENZIN on 05/27/22:1158 AMENDED REPORT 05/27/22 1158 PROT DIPSTX previously reported as: 30 H mg/dl Serum or plasma albumin traci urement (mass/volume)Ordered By: Dr. Peck on 05-27-2022 Albumin [Mass/Vol] 3.5 g/dL 3.2-5.0 [facility] Serum or plasma calcium traci urement (mass/volume)Ordered By: Dr. Peck on 05-27-2022 Calcium [Mass/Vol] 8.8 mg/dL 8.5-10.1 [facility] Serum or plasma creatinine m easurement (mass/volume)Ordered By: Dr. Peck on 05-27-2022 Creatinine [Mass/Vol] 0.65 mg/dL 0.55-1.02 [facility] Comment on above: The validity of the calculated GFR & GFRAA in patients over 70 years has not been determined. Clinical correlation is essential. Serum or plasma urea nitroge n measurement (mass/volume)Ordered By: Dr. Peck on 05-27-2022 Urea nitrogen [Mass/Vol] 7 mg/dL 7-18 [facility] Squamous epithelial cells de tection in urine sediment by light microscopyOrdered By: Dr. Peck on 05-27-2022 Epithelial cells.squamous LM Ql (Urine sed) 0 SEEN /hpf 5-10 [facility] Thin prep Papanicolaou smear with manual screeningOrdered By: Dr. Peck on 05-27-2022 Thin prep Papanicolaou smear with manual screening 11 U/L 15-37 [facility] Thin prep Papanicolaou smear with manual screening 7 5-15 [facility] Urine blood detectionOrdered By: Dr. Peck on 05-27-2022 RBC Ql (U) Negative Negative [facility] RBC Ql (U) 0 SEEN /hpf 0-5 [facility] Urine clarityOrdered By: Dr. Peck on 05-27-2022 Clarity (U) Sl. Cloudy Clear [facility] Urine color determinationOrd ered By: Dr. Peck on 05-27-2022 Color (U) Yellow Yellow [facility] Urine glucose detectionOrder ed By: Dr. Peck on 05-27-2022 Glucose Ql (U) Normal mg/dl Normal [facility] Urine leukocyte esterase det ection by dipstickOrdered By: Dr. Peck on 05-27-2022 Leukocyte esterase Test strip Ql (U) 25 /ul Negative [facility] Comment on above: Previous reported re sult: 500 /ulEdited by: TENZIN on 05/27/22:1158 AMENDED REPORT 05/27/22 1158 LEUK ESTERASE previously reported as: 500 H /ul Urine pHOrdered By: Dr. Bhanu elmore on 05-27-2022 pH (U) 8.0 [pH] 5.0 - 8.0 [facility] Urine sediment bacteria coun t by microscopy (number/high power field)Ordered By: Dr. Peck on 05-27-2022 Bacteria LM.HPF (Urine sed) [#/Area] 0 /[HPF] None Seen [facility] Urine specific gravity measu rementOrdered By: Dr. Peck on 05-27-2022 Specific gravity (U) [Rel density] 1.010 1.002-1.03 0 [facility] Urobilinogen Auto test strip Ql (U)Ordered By: Dr. Peck on 05-27-2022 Urobilinogen Ql (U) Normal mg/dl Normal [facility] PAP FLUID CERVICAL SCREENING on 05-01-2022 Case Report Gynecologic Cytology Report Case: [id number] Authorizing Provider: Sarah Pop MD Collected: 04/29/2022 09:09 AM Ordering Location: OB/Gynecology Received: 04/29/2022 01:46 PM First Screen: Majo Olivares, CT, ASCP Rescreen: Joann Pat, CT, ASCP Specimen: Pap, Runner Man, Screening, CERVICAL SCREENING FLUID [facility] Clinical History ABNORMAL PAP[H/o CKC [facility] Cytology Interpretation Negative [facility] FINAL DIAGNOSIS A - CERVICAL SCREENI NG FLUID Satisfactory for interpretation Negative for Intraepithelial lesion or malignancy. [facility] HPV Requested? Yes, automatic HPV patients over 30 [facility] LMP IUD [facility] Pap Disclaimer The Pap Smear is a screening test for cervical cancer. False negative results occur with all screening tests, emphasizing the need for rescreening at recommended intervals, and clinical correlation. [facility] PAP Runner Man Comment This specimen has be en analyzed by the ThinPrep Imaging System, an automated imaging and review system, which assists the laboratory in evaluating cells on ThinPrep Pap tests. Following automated imaging, selected moore from every slide are reviewed by a gallery host. [facility] Performing Lab Technical component, gallery host screening performed at [facility], [address], [facility] [address] CLIA# [id number] Diagnostic interpretation performed at [facility], [address], [facility] [address] CLIA# [id number] Vacation Guide: Margarito Doran M.D. [facility] HPV W/GENOTYPE THIN PREPon 1 HPV 16 Ag Ql (Unsp spec) Negative Negative for HPV DNA high risk type 16 by PCR [facility] HPV 18 Ag Ql (Unsp spec) Negative Negative for HPV DNA high risk type 18 by PCR [facility] HPV 31+33+35+39+45+51+52+5 6+58+59+66+68 DNA CHRISTIANO+probe Ql (Cvx) Negative for HPV DNA high risk types: 31,33,35,39,45,51,52,56, 58,59,66,68 by PCR. Negative for HPV DNA high risk types: 31,33,35,3 9,45,51,52 ,56,58,59, 66,68 by PCR. [facility] SURGICAL PATHOLOGYon 022 Case Report Surgical Pathology Report Case: [id number] Authorizing Provider: Sarah Pop MD Collected: 04/29/2022 09:09 AM Ordering Location: OB/Gynecology Received: 04/29/2022 01:34 PM Pathologist: Micheal Steven MD Specimens: A) - ENDOCERVIX CURETTINGS, ECC B) - CERVIX BIOPSY, 10 C) - CERVIX BIOPSY, 2 D) - CERVIX BIOPSY, 7 [facility] Clinical History LLOYD 2 [facility] FINAL DIAGNOSIS A. Endocervix, curettage: - Benign endocervical glandular and squamous epithelium. B-D. Cervix, 10:00, 2:00 and 7:00, biopsies: - Benign squamous mucosa. MJM 04/30/2022 [facility] Gross Description A. ENDOCERVIX CURETT INGS [...] in one cassette. Gross examination performed at [facility], [address] [place] [address] TTN 04/29/2022 9:25 PM [facility] Performing Lab Diagnostic interpretation performed at [facility], [address] [place] [address] CLIA# [id number] Vacation Guide: Micheal Steven M.D. [facility] HCG QUAL UR B/Oon 04-29-2022 status Negative neg - pos [facility] Quality Check Yes [facility] Flexible sigmoidoscopy study on 04-08-2022 [facility] Patient Name: Doug Flanagan Procedure Date: 04/08/2022 12:48 PM Date of : 1990 Admit Type: Outpatient Age: 31 Room: [place] [address] Gender: Female Note Status: Finalized Attending MD: [...] antiplatelet agents. Procedure Code(s): --- Professional --- 05532, Colonoscopy, flexible; diagnostic, including collection of specimen(s) by brushing or washing, when performed (separate procedure) CPT copyright 2020 [employer]. All rights reserved. The codes documented in this report are preliminary and upon information clerk cashier review may be revised to meet current compliance requirements. Attending Participation: I personally performed the entire procedure. Scope In: 1:01:44 PM Scope Out: 1:13:50 PM MD Angelita Marie MD 04/08/2022 1:24:48 PM This report has been signed electronically by Angelita Ho MD Number of Addenda: 0 Note Initiated On: 04/08/2022 12:48 PM Estimated Blood Loss: Estimated blood loss: none. PROVATION [facility] Radiology Study observation (narrative) [facility] XR ABDOMEN 2V ROUTINE SUPINE W UPRIGHT/DECUB/CTLon 04-01-2022 [facility] XR Abdomen Supine and Uprigh ton 04-01-2022 IMPRESSION: 1. Nonobstructive bowel gas pattern. 2. Large stool burden. Resource Room Teacher: PSCB Transcribe Date/Time: Apr 01 2022 10:32A Dictated by : ROOSEVELT GREENWOOD MD This examination was interpreted and the report reviewed and electronically signed by: ROOSEVELT GREENWOOD MD on Apr 01 2022 10:32AM [facility] DIVISION OF RADIOLOGY * * *Final Report* [...] in the pelvis. DIVISION OF RADIOLOGY Provider, [facility] - 04/01/2022 * * *Final Report* * [...] bowel gas pattern. 2. Large stool burden. Resource Room Teacher: PSCB Transcribe Date/Time: Apr 01 2022 10:32A Dictated by : ROOSEVELT GREENWOOD MD This examination was interpreted and the report reviewed and electronically signed by: ROOSEVELT GREENWOOD MD on Apr 01 2022 10:32AM EST [facility] Radiology Study observation (narrative) [facility] XR Abdomen Supine and Uprigh tOrdered By: Ccf Provider on 04-01-2022 [facility] Absolute lymphocyte countOrd ered By: Dr. Priest on 03-27-2022 Lymphocytes Auto (Unsp spec) [#/Vol] 1.43 10*3/uL 0.83-4.51 [facility] Basophil percentageOrdered B y: Dr. Priest on 03-27-2022 Basophils/100 WBC (Bld) 0.6 % 0-1 [facility] Bilirubin [Mass/Vol] 0.30 mg/dL 0.20-1.00 [facility] Comment on above: For patients on eltr ombopag therapy, use of Dimension [place] TBIL is not recommended. Chloride [Moles/Vol] 110 mmol/L 98-107 [facility] Eosinophils/100 WBC (Bld) 2.2 % 0-5 [facility] Glucose [Mass/Vol] 95 mg/dL 74-106 [facility] Neutrophils (Bld) [#/Vol] 4.2 10*3/uL 2.0-7.7 [facility] Neutrophils/100 WBC (Bld) 67.3 % 47-70 [facility] Potassium [Moles/Vol] 3.5 mmol/L 3.5-5.1 [facility] Protein [Mass/Vol] 7.2 g/dL 6.4-8.2 [facility] Sodium [Moles/Vol] 139 mmol/L 136-145 [facility] WBC (Bld) [#/Vol] 6.3 10*3/uL 4.4-11.0 [facility] Basophil percentage 0-5 SEEN /hpf 0-5 [facility] Beta hCG serum qualOrdered B y: Dr. Priest on 03-27-2022 Beta HCG ( test) Ql Negative [facility] Bilirubin Test strip Ql (U)O rdered By: Dr. Priest on 03-27-2022 Bilirubin Ql (U) 3 mg/dL Negative [facility] Comment on above: COLOR OF URINE MAY A FFECT DIPSTICK RESULTS. Blood erythrocytes count (nu mber/volume)Ordered By: Dr. Priest on 03-27-2022 RBC (Bld) [#/Vol] 4.76 10*6/uL 4.2-5.4 [facility] Blood hemoglobin measurement (mass/volume)Ordered By: Dr. Priest on 03-27-2022 Hemoglobin (Bld) [Mass/Vol] 13.2 g/dL 12.0-15.0 [facility] Blood lymphocytes/100 leukoc ytesOrdered By: Dr. Priest on 03-27-2022 Lymphocytes/100 WBC (Bld) 22.8 % 19-41 [facility] Blood monocytes/100 leukocyt esOrdered By: Dr. Priest on 03-27-2022 Monocytes/100 WBC (Bld) 6.9 % 0-10 [facility] Blood platelet mean volumeOr dered By: Dr. Priest on 03-27-2022 Platelet mean volume (Bld) [Entitic vol] 9.8 fL 6.2-12.0 [facility] Determination of erythrocyte mean corpuscular volume (MCV)Ordered By: Dr. Priest on 03-27-2022 MCV (RBC) [Entitic vol] 82.8 fL 81-99 [facility] Hematocrit Auto (Bld) [Volum e fraction]Ordered By: Dr. Priest on 03-27-2022 Hematocrit (Bld) [Volume fraction] 39.4 % 37-47 [facility] Ketones Test strip Ql (U)Ord ered By: Dr. Priest on 03-27-2022 Ketones Ql (U) 5 mg/dl Negative [facility] Laboratory - Chemistry and C hemistry - challengeOrdered By: Dr. Priest on 03-27-2022 ALP [Catalytic activity/Vol] 78 U/L 45-117 [facility] ALT [Catalytic activity/Vol] 23 U/L 13-56 [facility] CO2 [Moles/Vol] 22.0 mmol/L 21.0-32.0 [facility] Globulin (S) [Mass/Vol] 3.4 g/dL 2.2-4.2 [facility] Lipase [Catalytic activity/Vol] 286 U/L 73-393 [facility] Urea nitrogen/Creatinine [Mass ratio] 20.7 mg/mg 10-20 [facility] Laboratory - Hematology and Cell countsOrdered By: Dr. Priest on 03-27-2022 Erythrocyte distribution width (RBC) [Entitic vol] 41.1 fL 35.1-43.9 [facility] Erythrocyte distribution width (RBC) [Ratio] 13.6 % 11.6-14.6 [facility] Immature granulocytes/100 WBC (Bld) 0.200 % 0.0-0.9 [facility] Comment on above: IG% - Immature Granu locytes (promyelocytes, myelocytes and metamyelocytes) > 1% indicates that a LEFT SHIFT is Present. MCH (RBC) [Entitic mass] 27.7 pg 27.0-32.0 [facility] Nucleated RBC/100 WBC (Bld) [Ratio] 0 % 0-5 [facility] MCHC Auto (RBC) [Mass/Vol]Or dered By: Dr. Priest on 03-27-2022 MCHC (RBC) [Mass/Vol] 33.5 g/dL 32-36 [facility] Mucus LM Ql (Urine sed)Order ed By: Dr. Priest on 03-27-2022 Mucus Ql (Urine sed) 0 SEEN /hpf [facility] Nitrite Test strip Ql (U)Ord ered By: Dr. Priest on 03-27-2022 Nitrite Ql (U) Negative Negative [facility] No Panel InformationOrdered By: Dr. Priest on 03-27-2022 Estimated Creatinine Clearance Calc 87.90 ml/min [facility] Estimated GFR (MDRD) Amer 119 mL/min >60 [facility] Comment on above: GFR Calc Estimated GFR (MDRD) Non-Af Amer 98 mL/min >60 [facility] Comment on above: Non- GFR Calc Platelets bldOrdered By: Dr. Priest on 03-27-2022 Platelets (Bld) [#/Vol] 266 10*3/uL 150-450 [facility] Protein Test strip Ql (U)Ord ered By: Dr. Priest on 03-27-2022 Protein Ql (U) 30 mg/dl Negative [facility] Serum or plasma albumin traci urement (mass/volume)Ordered By: Dr. Priest on 03-27-2022 Albumin [Mass/Vol] 3.8 g/dL 3.2-5.0 [facility] Serum or plasma albumin/glob ulin mass ratioOrdered By: Dr. Priest on 03-27-2022 Albumin/Globulin [Mass ratio] 1.1 {ratio} 0.9-2.4 [facility] Serum or plasma calcium traci urement (mass/volume)Ordered By: Dr. Priest on 03-27-2022 Calcium [Mass/Vol] 8.7 mg/dL 8.5-10.1 [facility] Serum or plasma creatinine m easurement (mass/volume)Ordered By: Dr. Priest on 03-27-2022 Creatinine [Mass/Vol] 0.72 mg/dL 0.55-1.02 [facility] Comment on above: The validity of the calculated GFR & GFRAA in patients over 70 years has not been determined. Clinical correlation is essential. Serum or plasma urea nitroge n measurement (mass/volume)Ordered By: Dr. Priest on 03-27-2022 Urea nitrogen [Mass/Vol] 15 mg/dL 7-18 [facility] Squamous epithelial cells de tection in urine sediment by light microscopyOrdered By: Dr. Priest on 03-27-2022 Epithelial cells.squamous LM Ql (Urine sed) 10-25 SEEN /hpf 5-10 [facility] Thin prep Papanicolaou smear with manual screeningOrdered By: Dr. Priest on 03-27-2022 Thin prep Papanicolaou smear with manual screening 14 U/L 15-37 [facility] Thin prep Papanicolaou smear with manual screening 7 5-15 [facility] Urine blood detectionOrdered By: Dr. Priest on 03-27-2022 RBC Ql (U) 50 /ul Negative [facility] RBC Ql (U) 0 SEEN /hpf 0-5 [facility] Urine clarityOrdered By: Dr. Priest on 03-27-2022 Clarity (U) Sl. Cloudy Clear [facility] Urine color determinationOrd ered By: Dr. Priest on 03-27-2022 Color (U) Yellow Yellow [facility] Urine glucose detectionOrder ed By: Dr. Priest on 03-27-2022 Glucose Ql (U) Normal mg/dl Normal [facility] Urine leukocyte esterase det ection by dipstickOrdered By: Dr. Priest on 03-27-2022 Leukocyte esterase Test strip Ql (U) 100 /ul Negative [facility] Urine pHOrdered By: Dr. Ellie wharton on 03-27-2022 pH (U) 6.0 [pH] 5.0 - 8.0 [facility] Urine sediment bacteria coun t by microscopy (number/high power field)Ordered By: Dr. Priest on 03-27-2022 Bacteria LM.HPF (Urine sed) [#/Area] 1 /[HPF] None Seen [facility] Urine specific gravity measu rementOrdered By: Dr. Priest on 03-27-2022 Specific gravity (U) [Rel density] 1.020 1.002-1.03 0 [facility] Urobilinogen Auto test strip Ql (U)Ordered By: Dr. Priest on 03-27-2022 Urobilinogen Ql (U) 1 mg/dl Normal [facility] Absolute lymphocyte countOrd ered By: Dr. Lewis on 02-05-2022 Lymphocytes Auto (Unsp spec) [#/Vol] 2.08 10*3/uL 0.83-4.51 [facility] Basophil percentageOrdered B y: Dr. Lewis on 02-05-2022 Basophil percentage 0 SEEN /hpf 0-5 [facility] Basophils/100 WBC (Bld) 0.4 % 0-1 [facility] Bilirubin [Mass/Vol] 0.20 mg/dL 0.20-1.00 [facility] Comment on above: For patients on eltr ombopag therapy, use of Dimension [place] TBIL is not recommended. Chloride [Moles/Vol] 110 mmol/L 98-107 [facility] Eosinophils/100 WBC (Bld) 1.4 % 0-5 [facility] Glucose [Mass/Vol] 91 mg/dL 74-106 [facility] Neutrophils (Bld) [#/Vol] 6.3 10*3/uL 2.0-7.7 [facility] Neutrophils/100 WBC (Bld) 69.1 % 47-70 [facility] Potassium [Moles/Vol] 3.3 mmol/L 3.5-5.1 [facility] Protein [Mass/Vol] 7.4 g/dL 6.4-8.2 [facility] Sodium [Moles/Vol] 140 mmol/L 136-145 [facility] WBC (Bld) [#/Vol] 9.1 10*3/uL 4.4-11.0 [facility] Bilirubin Test strip Ql (U)O rdered By: Dr. Lewis on 02-05-2022 Bilirubin Ql (U) Negative Negative [facility] Blood erythrocytes count (nu mber/volume)Ordered By: Dr. Lewis on 02-05-2022 RBC (Bld) [#/Vol] 4.62 10*6/uL 4.2-5.4 [facility] Blood hemoglobin measurement (mass/volume)Ordered By: Dr. Lewis on 02-05-2022 Hemoglobin (Bld) [Mass/Vol] 12.5 g/dL 12.0-15.0 [facility] Blood lymphocytes/100 leukoc ytesOrdered By: Dr. Lewis on 02-05-2022 Lymphocytes/100 WBC (Bld) 23.0 % 19-41 [facility] Blood monocytes/100 leukocyt esOrdered By: Dr. Lewis on 02-05-2022 Monocytes/100 WBC (Bld) 5.9 % 0-10 [facility] Blood platelet mean volumeOr dered By: Dr. Lewis on 02-05-2022 Platelet mean volume (Bld) [Entitic vol] 9.4 fL 6.2-12.0 [facility] Determination of erythrocyte mean corpuscular volume (MCV)Ordered By: Dr. Lewis on 02-05-2022 MCV (RBC) [Entitic vol] 83.5 fL 81-99 [facility] Hematocrit Auto (Bld) [Volum e fraction]Ordered By: Dr. Lewis on 02-05-2022 Hematocrit (Bld) [Volume fraction] 38.6 % 37-47 [facility] Ketones Test strip Ql (U)Ord ered By: Dr. Lewis on 02-05-2022 Ketones Ql (U) Negative Negative [facility] Laboratory - Chemistry and C hemistry - challengeOrdered By: Dr. Lewis on 02-05-2022 ALP [Catalytic activity/Vol] 101 U/L 45-117 [facility] ALT [Catalytic activity/Vol] 16 U/L 13-56 [facility] CO2 [Moles/Vol] 22.0 mmol/L 21.0-32.0 [facility] Globulin (S) [Mass/Vol] 3.7 g/dL 2.2-4.2 [facility] Magnesium [Mass/Vol] 2.0 mg/dL 1.6-2.6 [facility] Urea nitrogen/Creatinine [Mass ratio] 16.3 mg/mg 10-20 [facility] Laboratory - Hematology and Cell countsOrdered By: Dr. Lewis on 02-05-2022 Erythrocyte distribution width (RBC) [Entitic vol] 41.1 fL 35.1-43.9 [facility] Erythrocyte distribution width (RBC) [Ratio] 13.5 % 11.6-14.6 [facility] Immature granulocytes/100 WBC (Bld) 0.200 % 0.0-0.9 [facility] Comment on above: IG% - Immature Granu locytes (promyelocytes, myelocytes and metamyelocytes) > 1% indicates that a LEFT SHIFT is Present. MCH (RBC) [Entitic mass] 27.1 pg 27.0-32.0 [facility] Nucleated RBC/100 WBC (Bld) [Ratio] 0 % 0-5 [facility] MCHC Auto (RBC) [Mass/Vol]Or dered By: Dr. Lewis on 02-05-2022 MCHC (RBC) [Mass/Vol] 32.4 g/dL 32-36 [facility] Mucus LM Ql (Urine sed)Order ed By: Dr. Lewis on 02-05-2022 Mucus Ql (Urine sed) 0 SEEN /hpf [facility] Nitrite Test strip Ql (U)Ord ered By: Dr. Lewis on 02-05-2022 Nitrite Ql (U) Negative Negative [facility] No Panel InformationOrdered By: Dr. Lewis on 02-05-2022 Estimated Creatinine Clearance Calc 93.07 ml/min [facility] Estimated GFR (MDRD) Amer 129 mL/min >60 [facility] Comment on above: GFR Calc Estimated GFR (MDRD) Non-Af Amer 107 mL/min >60 [facility] Comment on above: Non- GFR Calc Platelets bldOrdered By: Dr. Lewis on 02-05-2022 Platelets (Bld) [#/Vol] 270 10*3/uL 150-450 [facility] Protein Test strip Ql (U)Ord ered By: Dr. Lewis on 02-05-2022 Protein Ql (U) Negative Negative [facility] Serum or plasma albumin traci urement (mass/volume)Ordered By: Dr. Lewis on 02-05-2022 Albumin [Mass/Vol] 3.7 g/dL 3.2-5.0 [facility] Serum or plasma albumin/glob ulin mass ratioOrdered By: Dr. Lewis on 02-05-2022 Albumin/Globulin [Mass ratio] 1.0 {ratio} 0.9-2.4 [facility] Serum or plasma calcium traci urement (mass/volume)Ordered By: Dr. Lewis on 02-05-2022 Calcium [Mass/Vol] 9.1 mg/dL 8.5-10.1 [facility] Serum or plasma choriogonado tropin detectionOrdered By: Dr. Lewis on 02-05-2022 HCG ( test) Ql < 1 mIU/mL <4 [facility] Comment on above: hCG levels with Gest ational AgeGestational Age hCG mIU/mL (IU/L)0.2 - 1 week 5 - 501-2 weeks 50 - 5002-3 weeks 100 - 96076-4 weeks 500 - 281210-7 weeks 1000 - 521016-9 weeks 24652 - 100,0006-8 weeks 98378 - 200,0002-3 months 34051 - 100,000 Serum or plasma creatinine m easurement (mass/volume)Ordered By: Dr. Lewis on 02-05-2022 Creatinine [Mass/Vol] 0.68 mg/dL 0.55-1.02 [facility] Comment on above: The validity of the calculated GFR & GFRAA in patients over 70 years has not been determined. Clinical correlation is essential. Serum or plasma urea nitroge n measurement (mass/volume)Ordered By: Dr. Lewis on 02-05-2022 Urea nitrogen [Mass/Vol] 11 mg/dL 7-18 [facility] Squamous epithelial cells de tection in urine sediment by light microscopyOrdered By: Dr. Lewis on 02-05-2022 Epithelial cells.squamous LM Ql (Urine sed) 0-5 SEEN /hpf 5-10 [facility] Thin prep Papanicolaou smear with manual screeningOrdered By: Dr. Lewis on 02-05-2022 Thin prep Papanicolaou smear with manual screening 12 U/L 15-37 [facility] Thin prep Papanicolaou smear with manual screening 8 5-15 [facility] Urine blood detectionOrdered By: Dr. Lewis on 02-05-2022 RBC Ql (U) 10 /ul Negative [facility] RBC Ql (U) 0 SEEN /hpf 0-5 [facility] Urine clarityOrdered By: Dr. Lewis on 02-05-2022 Clarity (U) Clear Clear [facility] Urine color determinationOrd ered By: Dr. Lewis on 02-05-2022 Color (U) Yellow Yellow [facility] Urine glucose detectionOrder ed By: Dr. Lewis on 02-05-2022 Glucose Ql (U) Normal mg/dl Normal [facility] Urine leukocyte esterase det ection by dipstickOrdered By: Dr. Lewis on 02-05-2022 Leukocyte esterase Test strip Ql (U) Negative Negative [facility] Urine pHOrdered By: Dr. Brian riley on 02-05-2022 pH (U) 6.0 [pH] 5.0 - 8.0 [facility] Urine sediment bacteria coun t by microscopy (number/high power field)Ordered By: Dr. Lewis on 02-05-2022 Bacteria LM.HPF (Urine sed) [#/Area] 1 /[HPF] None Seen [facility] Urine specific gravity measu rementOrdered By: Dr. Lewis on 02-05-2022 Specific gravity (U) [Rel density] 1.015 1.002-1.03 0 [facility] Urobilinogen Auto test strip Ql (U)Ordered By: Dr. Lewis on 02-05-2022 Urobilinogen Ql (U) Normal mg/dl Normal [facility] Absolute lymphocyte counton 01-12-2022 Lymphocytes Auto (Unsp spec) [#/Vol] 2.23 10*3/uL 0.83-4.51 [facility] Work Phone: Basophil percentageon 2021 Basophils/100 WBC (Bld) 0.5 % 0-1 [facility] Work Phone: Bilirubin [Mass/Vol] 0.20 mg/dL 0.20-1.00 [facility] Work Phone: Comment on above: For patients on eltr ombopag therapy, use of Dimension [place] TBIL is not recommended. Chloride [Moles/Vol] 111 mmol/L 98-107 [facility] Work Phone: Eosinophils/100 WBC (Bld) 1.3 % 0-5 [facility] Work Phone: Glucose [Mass/Vol] 93 mg/dL 74-106 [facility] Work Phone: Neutrophils (Bld) [#/Vol] 7.3 10*3/uL 2.0-7.7 [facility] Work Phone: Neutrophils/100 WBC (Bld) 69.8 % 47-70 [facility] Work Phone: Potassium [Moles/Vol] 3.6 mmol/L 3.5-5.1 [facility] Work Phone: Protein [Mass/Vol] 7.1 g/dL 6.4-8.2 [facility] Work Phone: Sodium [Moles/Vol] 141 mmol/L 136-145 [facility] Work Phone: WBC (Bld) [#/Vol] 10.4 10*3/uL 4.4-11.0 [facility] Work Phone: Blood erythrocytes count (nu mber/volume)on 01-12-2022 RBC (Bld) [#/Vol] 4.54 10*6/uL 4.2-5.4 [facility] Work Phone: Blood hemoglobin measurement (mass/volume)on 01-12-2022 Hemoglobin (Bld) [Mass/Vol] 12.2 g/dL 12.0-15.0 [facility] Work Phone: Blood lymphocytes/100 leukoc yteson 01-12-2022 Lymphocytes/100 WBC (Bld) 21.4 % 19-41 [facility] Work Phone: Blood monocytes/100 leukocyt eson 01-12-2022 Monocytes/100 WBC (Bld) 6.7 % 0-10 [facility] Work Phone: Blood platelet mean volumeon 01-12-2022 Platelet mean volume (Bld) [Entitic vol] 9.5 fL 6.2-12.0 [facility] Work Phone: Determination of erythrocyte mean corpuscular volume (MCV)on 01-12-2022 MCV (RBC) [Entitic vol] 85.7 fL 81-99 [facility] Work Phone: Hematocrit Auto (Bld) [Volum e fraction]on 01-12-2022 Hematocrit (Bld) [Volume fraction] 38.9 % 37-47 [facility] Work Phone: Laboratory - Chemistry and C hemistry - challengeon 01-12-2022 ALP [Catalytic activity/Vol] 102 U/L 45-117 [facility] Work Phone: ALT [Catalytic activity/Vol] 24 U/L 13-56 [facility] Work Phone: CO2 [Moles/Vol] 22.0 mmol/L 21.0-32.0 [facility] Work Phone: Globulin (S) [Mass/Vol] 3.5 g/dL 2.2-4.2 [facility] Work Phone: Urea nitrogen/Creatinine [Mass ratio] 16.6 mg/mg 10-20 [facility] Work Phone: Laboratory - Hematology and Cell countson 01-12-2022 Erythrocyte distribution width (RBC) [Entitic vol] 41.2 fL 35.1-43.9 [facility] Work Phone: Erythrocyte distribution width (RBC) [Ratio] 13.2 % 11.6-14.6 [facility] Work Phone: Immature granulocytes/100 WBC (Bld) 0.300 % 0.0-0.9 [facility] Work Phone: Comment on above: IG% - Immature Granu locytes (promyelocytes, myelocytes and metamyelocytes) > 1% indicates that a LEFT SHIFT is Present. MCH (RBC) [Entitic mass] 26.9 pg 27.0-32.0 [facility] Work Phone: Nucleated RBC/100 WBC (Bld) [Ratio] 0 % 0-5 [facility] Work Phone: MCHC Auto (RBC) [Mass/Vol]on 01-12-2022 MCHC (RBC) [Mass/Vol] 31.4 g/dL 32-36 [facility] Work Phone: No Panel Informationon 01-12 Estimated Creatinine Clearance Calc 87.90 ml/min [facility] Work Phone: Estimated GFR (MDRD) Amer 119 mL/min >60 [facility] Work Phone: Comment on above: GFR Calc Estimated GFR (MDRD) Non-Af Amer 98 mL/min >60 [facility] Work Phone: Comment on above: Non- GFR Calc Troponin I High Sensitivity 3 pg/mL 3.0-54.0 [facility] Work Phone: Comment on above: Please Note: New Jackie t Units and Gender Specific Reference Ranges. For more information see Policy Stat Procedure [place] High Sensitivity Troponin (TNIH) and attachments. Platelets bldon 01-12-2022 Platelets (Bld) [#/Vol] 283 10*3/uL 150-450 [facility] Work Phone: Serum or plasma albumin traci urement (mass/volume)on 01-12-2022 Albumin [Mass/Vol] 3.6 g/dL 3.2-5.0 [facility] Work Phone: Serum or plasma albumin/glob ulin mass ratioon 01-12-2022 Albumin/Globulin [Mass ratio] 1.0 {ratio} 0.9-2.4 [facility] Work Phone: Serum or plasma calcium traci urement (mass/volume)on 01-12-2022 Calcium [Mass/Vol] 8.9 mg/dL 8.5-10.1 [facility] Work Phone: Serum or plasma creatinine m easurement (mass/volume)on 01-12-2022 Creatinine [Mass/Vol] 0.72 mg/dL 0.55-1.02 [facility] Work Phone: Comment on above: The validity of the calculated GFR & GFRAA in patients over 70 years has not been determined. Clinical correlation is essential. Serum or plasma urea nitroge n measurement (mass/volume)on 01-12-2022 Urea nitrogen [Mass/Vol] 12 mg/dL 7-18 [facility] Work Phone: Thin prep Papanicolaou smear with manual screeningon 01-12-2022 Thin prep Papanicolaou smear with manual screening 15 U/L 15-37 [facility] Work Phone: Thin prep Papanicolaou smear with manual screening 8 5-15 [facility] Work Phone: UA DIP, URINE (POC)on 2021 BILIRUBIN UA (POCT) Negative Negative [facility] CLARITY UA (POCT) Clear [facility] COLOR UA (POCT) Yellow [facility] GLUCOSE UA (POCT) Negative Negative mg/dL [facility] HEMOGLOBIN/BLOOD UA (POCT) Small Abnormal Negative [facility] KETONE UA (POCT) Negative Negative mg/dL [facility] LEUKOCYTES UA (POCT) Trace Abnormal Negative [facility] NITRITE UA (POCT) Negative Negative [facility] PH UA (POCT) 6.5 4.5 - 8.0 [facility] Protein Ql (U) Negative Negative mg/dL [facility] SPECIFIC GRAVITY UA (POCT) 1.025 1.005 - 1.030 [facility] UROBILINOGEN UA (POCT) 1.0 E.U./dL Saarh l E.U./dL [facility] XR RIBS/CHEST 3V AP RIB/OBLS /CXR LEFTon 12-22-2021 [facility] XR Ribs - left Views and [address] PAon 12-22-2021 IMPRESSION:The lungs are clear. There is no pleural effusion or pneumothorax. Right Port-A-Cath is in place with the tip at the SVC/right atrial junction. The cardiomediastinal silhouette is within limits of normal. Osseous structures are intact. There is no evidence of displaced left rib fracture. Resource Room Teacher: [facility] Transcribe Date/Time: Dec 22 2021 7:54P Dictated by : ERIC OLVERA MD This examination was interpreted and the report reviewed and electronically signed by: ERIC OLVERA MD on Dec 22 2021 7:56PM [facility] DIVISION OF RADIOLOGY * * *Final Report* * * DATE OF EXAM: Dec 22 2021 7:10PM [id number] - XR RIB/CHST 3V AP RIB/OBL/CHST L / PROCEDURE REASON: Rib pain * * * * Physician Interpretation * * * * EXAM:XR RIB/CHST 3V AP RIB/OBL/CHST L HISTORY: Rib pain, status post fall. COMPARISON:None DIVISION OF RADIOLOGY Provider, lui Stewart - 12/22/2021 * * *Final Report* * [...] no evidence of displaced left rib fracture. Resource Room Teacher: [facility] Transcribe Date/Time: Dec 22 2021 7:54P Dictated by : ERIC OLVERA MD This examination was interpreted and the report reviewed and electronically signed by: ERIC OLVERA MD on Dec 22 2021 7:56PM EST [facility] Radiology Study observation (narrative) [facility] XR Ribs - left Views and [address]ma st PAOrdered By: [facility] Provider on 12-22-2021 [facility] No Panel Informationon 12-01 IMPRESSION: No radiographic evidence of acute osseous injury Resource Room Teacher: [facility] Transcribe Date/Time: Dec 01 2021 2:35P Dictated by : ROOSEVELT GREENWOOD MD This examination was interpreted and the report reviewed and electronically signed by: ROOSEVELT GREENWOOD MD on Dec 01 2021 2:37PM EST [id number] _DIVISION OF RADIOLOGY Radiology Study observation (narrative) [facility] No Panel InformationOrdered By: [facility]cf Provider on 12-01-2021 [facility] US DVT LOWER LTon 12-01-2021 [facility] XR Foot - left AP and [...] spaces preserved. [id number] _DIVISION OF RADIOLOGY Provider, [facility] - 12/01/2021 * * *Final Report* * [...] No radiographic evidence of acute osseous injury Resource Room Teacher: [facility] Transcribe Date/Time: Dec 01 2021 2:35P Dictated by : ROOSEVELT GREENWOOD MD This examination was interpreted and the report reviewed and electronically signed by: ROOSEVELT GREENWOOD MD on Dec 01 2021 2:37PM [facility] XR Tibia and Fibula - left A [...] fracture or dislocation identified. Joint spaces preserved. [email or web address] _DIVISION OF RADIOLOGY Provider, [facility] - 12/01/2021 * * *Final Report* [...] No radiographic evidence of acute osseous injury Resource Room Teacher: [facility] Transcribe Date/Time: Dec 01 2021 2:35P Dictated by : ROOSEVELT GREENWOOD MD This examination was interpreted and the report reviewed and electronically signed by: ROOSEVELT GREENWOOD MD on Dec 01 2021 2:37PM [facility] Basophil percentageon 2021 WBC (Bld) [#/Vol] 6.8 10*3/uL 4.4-11.0 [facility] Work Phone: Blood erythrocytes count (nu mber/volume)on 10-17-2021 RBC (Bld) [#/Vol] 4.25 10*6/uL 4.2-5.4 [facility] Work Phone: Blood hemoglobin measurement (mass/volume)on 10-17-2021 Hemoglobin (Bld) [Mass/Vol] 11.9 g/dL 12.0-15.0 [facility] Work Phone: Blood platelet mean volumeon 10-17-2021 Platelet mean volume (Bld) [Entitic vol] 9.3 fL 6.2-12.0 [facility] Work Phone: Determination of erythrocyte mean corpuscular volume (MCV)on 10-17-2021 MCV (RBC) [Entitic vol] 85.2 fL 81-99 [facility] Work Phone: Hematocrit Auto (Bld) [Volum e fraction]on 10-17-2021 Hematocrit (Bld) [Volume fraction] 36.2 % 37-47 [facility] Work Phone: Laboratory - Chemistry and C hemistry - challengeon 10-17-2021 HCG ( test) Ql (U) Negative [facility] Work Phone: Comment on above: Very dilute urine sp ecimens, as indicated by a low specificgravity, may not contain employment representative levels of hCG. If is still suspected, a first morning urinespecimen should be collected 48 hours later and tested. Laboratory - Hematology and Cell countson 10-17-2021 Erythrocyte distribution width (RBC) [Entitic vol] 43.1 fL 35.1-43.9 [facility] Work Phone: Erythrocyte distribution width (RBC) [Ratio] 14.0 % 11.6-14.6 [facility] Work Phone: MCH (RBC) [Entitic mass] 28.0 pg 27.0-32.0 [facility] Work Phone: MCHC Auto (RBC) [Mass/Vol]on 10-17-2021 MCHC (RBC) [Mass/Vol] 32.9 g/dL 32-36 [facility] Work Phone: Platelets bldon 10-17-2021 Platelets (Bld) [#/Vol] 311 10*3/uL 150-450 [facility] Work Phone: 24 hour urine alpha 2 globul in/total protein ratio by electrophoresis (mass fraction)on 09-16-2021 Alpha 2 globulin Elph (24H U) [Mass fraction] 10.5 % . [facility] Work Phone: 24 hour urine beta globulin/ total protein ratio by electrophoresis (mass fraction)on 09-16-2021 Beta globulin Elph (24H U) [Mass fraction] 15.9 % . [facility] Work Phone: 24 hour urine gamma globulin /total protein ratio by electrophoresis (mass fraction)on 09-16-2021 Gamma globulin Elph (24H U) [Mass fraction] 40.3 % . [facility] Work Phone: Basophil percentageon 2021 Ammonia (P) [Moles/Vol] 22.0 umol/L 11-32 [facility] Work Phone: Erythrocyte sedimentation ra ziggy 09-16-2021 ESR (Bld) [Velocity] 11 mm/h 0-30 [facility] Work Phone: Laboratory - Chemistry and C hemistry - challengeon 09-16-2021 CK [Catalytic activity/Vol] 69 U/L 26-192 [facility] Work Phone: Cobalamin (Vitamin B12) [Mass/Vol] 282 pg/mL 211-911 [facility] Work Phone: No Panel Informationon 09-16 Urine Immunofixation PEP Note Comment . [facility] Work Phone: Comment on above: Protein electrophore sis scan will follow via computer,mail, or speech instructor delivery.Performed at: [address] [id number] Director: Nicolas Fleming PhD, Phone: [phone] Serum or plasma C reactive p rotein measurement (mass/volume)on 09-16-2021 CRP [Mass/Vol] mg/L 0.0-3.0 [facility] Work Phone: Comment on above: C-Reactive Protein ( CRP) provides useful information for thediagnosis, therapy and monitoring of inflammatory processesand associated diseases. For the evaluation of Relative Riskfor Cardiovascular Disease, a High Sensitivity CRP (HSCRP)should be ordered. Urine albumin/total protein mass ratio by electrophoresison 09-16-2021 Albumin Elph (U) [Mass fraction] 30.1 % . [facility] Work Phone: Urine alpha 1 globulin/total protein ratio by electrophoresis (mass fraction)on 09-16-2021 Alpha 1 globulin Elph (U) [Mass fraction] 3.2 % . [facility] Work Phone: Urine monoclonal protein/tot al protein mass ratio by electrophoresison 09-16-2021 Protein.monoclonal Elph (U) [Mass fraction] See comment [facility] Work Phone: Comment on above: Result: Not Observed Urine protein measurement (m ass/volume)on 09-16-2021 Protein (U) [Mass/Vol] 7.4 mg/dL Not Estab. [facility] Work Phone: HCG QUAL UR B/Oon 08-20-2021 status Negative neg - pos [facility] Quality Check Yes [facility] Absolute lymphocyte counton 08-06-2021 Lymphocytes Auto (Unsp spec) [#/Vol] 1.60 10*3/uL 0.83-4.51 [facility] Work Phone: Basophil percentageon 2021 Basophils/100 WBC (Bld) 0.7 % 0-1 [facility] Work Phone: Bilirubin [Mass/Vol] 0.50 mg/dL 0.20-1.00 [facility] Work Phone: Comment on above: For patients on eltr ombopag therapy, use of Dimension [place] TBIL is not recommended. Chloride [Moles/Vol] 114 mmol/L 98-107 [facility] Work Phone: Eosinophils/100 WBC (Bld) 2.4 % 0-5 [facility] Work Phone: Glucose [Mass/Vol] 92 mg/dL 74-106 [facility] Work Phone: Neutrophils (Bld) [#/Vol] 3.2 10*3/uL 2.0-7.7 [facility] Work Phone: Neutrophils/100 WBC (Bld) 60.0 % 47-70 [facility] Work Phone: Potassium [Moles/Vol] 3.9 mmol/L 3.5-5.1 [facility] Work Phone: Protein [Mass/Vol] 7.6 g/dL 6.4-8.2 [facility] Work Phone: Sodium [Moles/Vol] 139 mmol/L 136-145 [facility] Work Phone: WBC (Bld) [#/Vol] 5.4 10*3/uL 4.4-11.0 [facility] Work Phone: Blood erythrocytes count (nu mber/volume)on 08-06-2021 RBC (Bld) [#/Vol] 4.49 10*6/uL 4.2-5.4 [facility] Work Phone: Blood hemoglobin measurement (mass/volume)on 08-06-2021 Hemoglobin (Bld) [Mass/Vol] 12.8 g/dL 12.0-15.0 [facility] Work Phone: Blood lymphocytes/100 leukoc yteson 08-06-2021 Lymphocytes/100 WBC (Bld) 29.8 % 19-41 [facility] Work Phone: Blood monocytes/100 leukocyt eson 08-06-2021 Monocytes/100 WBC (Bld) 6.9 % 0-10 [facility] Work Phone: Blood platelet mean volumeon 08-06-2021 Platelet mean volume (Bld) [Entitic vol] 9.3 fL 6.2-12.0 [facility] Work Phone: Determination of erythrocyte mean corpuscular volume (MCV)on 08-06-2021 MCV (RBC) [Entitic vol] 85.7 fL 81-99 [facility] Work Phone: Hematocrit Auto (Bld) [Volum e fraction]on 08-06-2021 Hematocrit (Bld) [Volume fraction] 38.5 % 37-47 [facility] Work Phone: Laboratory - Chemistry and C hemistry - challengeon 08-06-2021 ALP [Catalytic activity/Vol] 111 U/L 45-117 [facility] Work Phone: ALT [Catalytic activity/Vol] 26 U/L 13-56 [facility] Work Phone: CO2 [Moles/Vol] 22.0 mmol/L 21.0-32.0 [facility] Work Phone: Globulin (S) [Mass/Vol] 3.7 g/dL 2.2-4.2 [facility] Work Phone: Urea nitrogen/Creatinine [Mass ratio] 13.8 mg/mg 10-20 [facility] Work Phone: Laboratory - Hematology and Cell countson 08-06-2021 Erythrocyte distribution width (RBC) [Entitic vol] 43.3 fL 35.1-43.9 [facility] Work Phone: Erythrocyte distribution width (RBC) [Ratio] 13.8 % 11.6-14.6 [facility] Work Phone: Immature granulocytes/100 WBC (Bld) 0.200 % 0.0-0.9 [facility] Work Phone: Comment on above: IG% - Immature Granu locytes (promyelocytes, myelocytes and metamyelocytes) > 1% indicates that a LEFT SHIFT is Present. MCH (RBC) [Entitic mass] 28.5 pg 27.0-32.0 [facility] Work Phone: Nucleated RBC/100 WBC (Bld) [Ratio] 0 % 0-5 [facility] Work Phone: MCHC Auto (RBC) [Mass/Vol]on 08-06-2021 MCHC (RBC) [Mass/Vol] 33.2 g/dL 32-36 [facility] Work Phone: No Panel Informationon 08-06 Estimated GFR (MDRD) Amer 97 mL/min >60 [facility] Work Phone: Comment on above: GFR Calc Estimated GFR (MDRD) Non-Af Amer 80 mL/min >60 [facility] Work Phone: Comment on above: Non- GFR Calc Platelets bldon 08-06-2021 Platelets (Bld) [#/Vol] 297 10*3/uL 150-450 [facility] Work Phone: Serum or plasma albumin traci urement (mass/volume)on 08-06-2021 Albumin [Mass/Vol] 3.9 g/dL 3.2-5.0 [facility] Work Phone: Serum or plasma albumin/glob ulin mass ratioon 08-06-2021 Albumin/Globulin [Mass ratio] 1.1 {ratio} 0.9-2.4 [facility] Work Phone: Serum or plasma calcium traci urement (mass/volume)on 08-06-2021 Calcium [Mass/Vol] 9.1 mg/dL 8.5-10.1 [facility] Work Phone: Serum or plasma creatinine m easurement (mass/volume)on 08-06-2021 Creatinine [Mass/Vol] 0.87 mg/dL 0.55-1.02 [facility] Work Phone: Comment on above: The validity of the calculated GFR & GFRAA in patients over 70 years has not been determined. Clinical correlation is essential. Serum or plasma urea nitroge n measurement (mass/volume)on 08-06-2021 Urea nitrogen [Mass/Vol] 12 mg/dL 7-18 [facility] Work Phone: Thin prep Papanicolaou smear with manual screeningon 08-06-2021 Thin prep Papanicolaou smear with manual screening 21 U/L 15-37 [facility] Work Phone: Thin prep Papanicolaou smear with manual screening 3 5-15 [facility] Work Phone: No Panel Informationon 06-18 Total Complement (CH50) < 16 U/mL [facility] Work Phone: Comment on above: Age Male [...] to determine out of range values.Performed at: [employer] [id number] Director: Nicolas Fleming PhD, Phone: [phone] Absolute lymphocyte counton 06-13-2021 Lymphocytes Auto (Unsp spec) [#/Vol] 1.76 10*3/uL 0.83-4.51 [facility] Work Phone: Basophil percentageon 2021 Basophil percentage 10-25 SEEN /hpf [facility] Work Phone: Basophils/100 WBC (Bld) 0.5 % 0-1 [facility] Work Phone: Eosinophils/100 WBC (Bld) 1.4 % 0-5 [facility] Work Phone: Neutrophils (Bld) [#/Vol] 5.3 10*3/uL 2.0-7.7 [facility] Work Phone: Neutrophils/100 WBC (Bld) 67.2 % 47-70 [facility] Work Phone: WBC (Bld) [#/Vol] 7.9 10*3/uL 4.4-11.0 [facility] Work Phone: Bilirubin Test strip Ql (U)o n 06-13-2021 Bilirubin Ql (U) Negative Negative [facility] Work Phone: Blood erythrocytes count (nu mber/volume)on 06-13-2021 RBC (Bld) [#/Vol] 4.64 10*6/uL 4.2-5.4 [facility] Work Phone: Blood hemoglobin measurement (mass/volume)on 06-13-2021 Hemoglobin (Bld) [Mass/Vol] 13.1 g/dL 12.0-15.0 [facility] Work Phone: Blood lymphocytes/100 leukoc yteson 06-13-2021 Lymphocytes/100 WBC (Bld) 22.2 % 19-41 [facility] Work Phone: Blood monocytes/100 leukocyt eson 06-13-2021 Monocytes/100 WBC (Bld) 8.4 % 0-10 [facility] Work Phone: Blood platelet mean volumeon 06-13-2021 Platelet mean volume (Bld) [Entitic vol] 9.7 fL 6.2-12.0 [facility] Work Phone: Culture, urineon 06-13-2021 Bacteria identified Cx Nom (U) Positive [facility] Work Phone: Determination of erythrocyte mean corpuscular volume (MCV)on 06-13-2021 MCV (RBC) [Entitic vol] 85.1 fL 81-99 [facility] Work Phone: Hematocrit Auto (Bld) [Volum e fraction]on 06-13-2021 Hematocrit (Bld) [Volume fraction] 39.5 % 37-47 [facility] Work Phone: Ketones Test strip Ql (U)on 06-13-2021 Ketones Ql (U) Negative Negative [facility] Work Phone: Laboratory - Hematology and Cell countson 06-13-2021 Erythrocyte distribution width (RBC) [Entitic vol] 44.9 fL 35.1-43.9 [facility] Work Phone: Erythrocyte distribution width (RBC) [Ratio] 14.5 % 11.6-14.6 [facility] Work Phone: Immature granulocytes/100 WBC (Bld) 0.300 % 0.0-0.9 [facility] Work Phone: Comment on above: IG% - Immature Granu locytes (promyelocytes, myelocytes and metamyelocytes) > 1% indicates that a LEFT SHIFT is Present. MCH (RBC) [Entitic mass] 28.2 pg 27.0-32.0 [facility] Work Phone: Nucleated RBC/100 WBC (Bld) [Ratio] 0 % 0-5 [facility] Work Phone: MCHC Auto (RBC) [Mass/Vol]on 06-13-2021 MCHC (RBC) [Mass/Vol] 33.2 g/dL 32-36 [facility] Work Phone: Mucus LM Ql (Urine sed)on Mucus Ql (Urine sed) 0 SEEN /hpf [facility] Work Phone: Nitrite Test strip Ql (U)on 06-13-2021 Nitrite Ql (U) Negative Negative [facility] Work Phone: Platelets bldon 06-13-2021 Platelets (Bld) [#/Vol] 283 10*3/uL 150-450 [facility] Work Phone: Protein Test strip Ql (U)on 06-13-2021 Protein Ql (U) 15 mg/dl Negative [facility] Work Phone: Squamous epithelial cells de tection in urine sediment by light microscopyon 06-13-2021 Epithelial cells.squamous LM Ql (Urine sed) 0-5 SEEN /hpf [facility] Work Phone: Urine blood detectionon 06-03 RBC Ql (U) 250 /ul Negative [facility] Work Phone: RBC Ql (U) 10-25 SEEN /hpf [facility] Work Phone: Urine clarityon 06-13-2021 Clarity (U) Sl. Cloudy Clear [facility] Work Phone: Urine color determinationon 06-13-2021 Color (U) Yellow Yellow [facility] Work Phone: Urine glucose detectionon Glucose Ql (U) Normal mg/dl Normal [facility] Work Phone: Urine leukocyte esterase det ection by dipstickon 06-13-2021 Leukocyte esterase Test strip Ql (U) 100 /ul Negative [facility] Work Phone: Urine pHon 06-13-2021 pH (U) 7.0 [pH] [facility] Work Phone: Urine sediment bacteria coun t by microscopy (number/high power field)on 06-13-2021 Bacteria LM.HPF (Urine sed) [#/Area] 0 /[HPF] None Seen [facility] Work Phone: Urine specific gravity measu rementon 06-13-2021 Specific gravity (U) [Rel density] 1.010 [facility] Work Phone: Urobilinogen Auto test strip Ql (U)on 06-13-2021 Urobilinogen Ql (U) Normal mg/dl Normal [facility] Work Phone: Basophil percentageon 2021 Bilirubin [Mass/Vol] 0.30 mg/dL 0.20-1.00 [facility] Work Phone: Comment on above: For patients on eltr ombopag therapy, use of Dimension [place] TBIL is not recommended. Chloride [Moles/Vol] 115 mmol/L 98-107 [facility] Work Phone: Glucose [Mass/Vol] 92 mg/dL 74-106 [facility] Work Phone: Potassium [Moles/Vol] 4.0 mmol/L 3.5-5.1 [facility] Work Phone: Protein [Mass/Vol] 7.4 g/dL 6.4-8.2 [facility] Work Phone: Sodium [Moles/Vol] 141 mmol/L 136-145 [facility] Work Phone: Laboratory - Chemistry and C hemistry - challengeon 05-23-2021 ALP [Catalytic activity/Vol] 110 U/L 45-117 [facility] Work Phone: ALT [Catalytic activity/Vol] 28 U/L 13-56 [facility] Work Phone: CK [Catalytic activity/Vol] 62 U/L 26-192 [facility] Work Phone: CO2 [Moles/Vol] 22.0 mmol/L 21.0-32.0 [facility] Work Phone: Globulin (S) [Mass/Vol] 3.5 g/dL 2.2-4.2 [facility] Work Phone: Urea nitrogen/Creatinine [Mass ratio] 12.7 mg/mg 10-20 [facility] Work Phone: No Panel Informationon 05-23 Estimated GFR (MDRD) Amer 97 mL/min >60 [facility] Work Phone: Comment on above: GFR Calc Estimated GFR (MDRD) Non-Af Amer 80 mL/min >60 [facility] Work Phone: Comment on above: Non- GFR Calc Serum or plasma albumin traci urement (mass/volume)on 05-23-2021 Albumin [Mass/Vol] 3.9 g/dL 3.2-5.0 [facility] Work Phone: Serum or plasma albumin/glob ulin mass ratioon 05-23-2021 Albumin/Globulin [Mass ratio] 1.1 {ratio} 0.9-2.4 [facility] Work Phone: Serum or plasma calcium traci urement (mass/volume)on 05-23-2021 Calcium [Mass/Vol] 9.1 mg/dL 8.5-10.1 [facility] Work Phone: Serum or plasma creatinine m easurement (mass/volume)on 05-23-2021 Creatinine [Mass/Vol] 0.87 mg/dL 0.55-1.02 [facility] Work Phone: Comment on above: The validity of the calculated GFR & GFRAA in patients over 70 years has not been determined. Clinical correlation is essential. Serum or plasma urea nitroge n measurement (mass/volume)on 05-23-2021 Urea nitrogen [Mass/Vol] 11 mg/dL 7-18 [facility] Work Phone: Thin prep Papanicolaou smear with manual screeningon 05-23-2021 Thin prep Papanicolaou smear with manual screening 15 U/L 15-37 [facility] Work Phone: Thin prep Papanicolaou smear with manual screening 4 5-15 [facility] Work Phone: CALCIFEDIOL ([id number])Ordered B y: Student Financial Services Counselor on 12-24-2020 25-hydroxyvitamin D [Mass/Vol] 12.4 ng/mL Abnormal 30.0-100.0 [facility] Work Phone: Comment on above: Vitamin D deficiency has been defined by the [place] ofMedicine and an Endocrine Society practice guideline as alevel of serum 25-OH vitamin D less than 20 ng/mL (1,2).The Endocrine Society went on to further define vitamin Dinsufficiency as a level between 21 and 29 ng/mL (2).1. IOM ([place] of Medicine). 2010. Dietary reference intakes for calcium and D. [place]: The National Academies Press.2. Solange MF, Maximiliano [place], Earle BOURNE, et al. Evaluation, treatment, and prevention of vitamin D deficiency: an Endocrine Society clinical practice guideline. JCEM. 2010; 96(7):1911-30. PATIENT NOT FASTINGP ERFORMED BY: [email or web address] [facility] [id number] TSH (THYROID STIMULATING HOR LOBO) ([id number])Ordered By: Student Financial Services Counselor on 12-24-2020 TSH Qn 1.770 {uIU/mL} Normal 0.450-4.50 0 [facility] Work Phone: Comment on above: PATIENT NOT FASTINGP ERFORMED BY: [email or web address] [employer] [place] [id number] VITAMIN B12 AND FOLATES ([id number])Ordered By: Student Financial Services Counselor on 12-24-2020 Cobalamin (Vitamin B12) [Mass/Vol] 397 pg/mL Normal 232-1245 [facility] Work Phone: Comment on above: PATIENT NOT FASTINGP ERFORMED BY: J[employer]GE [employer] [place] [id number] Folate [Mass/Vol] 3.8 ng/mL Normal [facility]; [facility] Work Phone: Comment on above: A serum folate stephon ntration of less than 3.1 ng/mL isconsidered to represent clinical deficiency. PATIENT NOT FASTINGP ERFORMED BY: JORGE [employer] [employer] [place] [id number] POTASSIUM SERUM ([id number])Order ed By: Student Financial Services Counselor on 11-12-2020 Potassium [Moles/Vol] 4.5 mmol/L Normal 3.5-5.2 [facility]; [facility] Work Phone: Comment on above: PATIENT NOT FASTINGP ERFORMED BY: J[employer]GE [employer] [facility] [id number] Basic Metabolic Panelon Calcium [Mass/Vol] 9.0 mg/dL Normal 8.4-10.4 [facility] Comment on above: Performed By: #### B MP3 #### [facility] [address], [place] Glucose [Mass/Vol] 89 mg/dL Normal 70-100 [facility] Comment on above: Performed By: #### B MP3 #### [facility] [address], [place] Anion gap [Moles/Vol] 10 Normal [facility] Comment on above: Performed By: #### B MP3 #### [facility] [address], [place] CO2 [Moles/Vol] 21 mmol/L Low 22-30 [facility] Comment on above: Performed By: #### B MP3 #### [facility] [address] [place] [address] Creatinine [Mass/Vol] 0.56 mg/dL Normal 0.52-1.25 [facility] Comment on above: Performed By: #### B MP3 #### [facility] [address] [place] [address] GFR/1.73 sq M predicted among blacks MDRD (S/P/Bld) [Vol rate/Area] mL/min/{1.73_m2} Normal >60 [facility] Comment on above: Performed By: #### B MP3 #### [address] [place] [address] GFR/1.73 sq M predicted among non-blacks MDRD (S/P/Bld) [Vol rate/Area] mL/min/{1.73_m2} Normal >60 [facility] Comment on above: Result Comment: KDIG O [...] secretion. Performed By: #### B MP3 #### [address], [place] Urea nitrogen [Mass/Vol] 13 mg/dL Normal 7-20 [facility] Comment on above: Performed By: #### B MP3 #### [address] [address] [place], [place] Chloride [Moles/Vol] 107 mmol/L Normal 98-107 [facility] Comment on above: Performed By: #### B MP3 #### [facility] [address], [place] Potassium [Moles/Vol] 3.3 mmol/L Low 3.5-5.1 [facility] Comment on above: Performed By: #### B MP3 #### [facility] [address], [place] Sodium [Moles/Vol] 138 mmol/L Normal 135-145 [facility] Comment on above: Performed By: #### B MP3 #### [facility] [address], [place] Anion gap [Moles/Vol] 10 mmol/L [place], [place] Calcium [Mass/Vol] 9.0 mg/dL 8.4 - 10. 4 mg/dL [place] Chloride [Moles/Vol] 107 mmol/L 98 - 10 7 mmol/L [place] CO2 [Moles/Vol] 21 mmol/L Low 22 - 30 mmol/L [place] Creatinine [Mass/Vol] 0.56 mg/dL 0.52 - 1.25 mg/dL [place] EGFR IF NonAfrican [place]ine[place] >90.0 >60 mL/min [place] Comment on above: KDIGO guidelines pro [...] MDRD (S/P/Bld) [Vol rate/Area] mL/min/{1.73_m2} >60 mL/min [place] Glucose [Mass/Vol] 89 mg/dL 70 - 100 mg/dL [place] Interpretation and review of laboratory results Abnormal [place] Potassium [Moles/Vol] 3.3 mmol/L Low 3.5 - 5.1 mmol/L [place] Sodium [Moles/Vol] 138 mmol/L 135 - 145 mmol/L [place] Urea nitrogen [Mass/Vol] 13 mg/dL 7 - 20 mg/dL [place] Test Performed by [place] [address] [place] [address] [place] CBCon 10-07-2019 Erythrocyte distribution width (RBC) [Ratio] 13.0 % 11.5 - 14.5 % [place] Hematocrit (Bld) [Volume fraction] 39.8 % 35 - 47 % [place] Hemoglobin (Bld) [Mass/Vol] 13.0 g/dL 11.7 - 16 g/dL [place] Interpretation and review of laboratory results Abnormal [place] MCH (RBC) [Entitic mass] 28.4 pg 26 - 34 pg [place] MCHC (RBC) [Mass/Vol] 32.7 % 32 - 36 % [place] MCV (RBC) [Entitic vol] 86.8 fL 79 - 98 fL [place] Platelet mean volume (Bld) [Entitic vol] 8.3 fL 7.4 - 10.4 fL [place] Platelets (Bld) [#/Vol] 37 10*3/uL Low 140 - 440 10*3/uL [place] RBC (Bld) [#/Vol] 4.59 10*6/uL 3.8 - 5.2 10*6/uL [place] WBC (Bld) [#/Vol] 11.4 10*3/uL High 3.6 - 10.7 10*3/uL [place] Test Performed by [address] [place] [address] [facility], [place] Comp Panel with Mg Reflexon 10-07-2019 ALT [Catalytic activity/Vol] 12 U/L Normal 0-34 [facility] Comment on above: Result Comment: The ALT test is performed by an updated assay method. Please note that the reference intervals have been changed and are now sex specific. Performed By: #### H EMOG CMP3M, MG3 #### [facility] [address] [place], [place] Calcium [Mass/Vol] 9.4 mg/dL Normal 8.4-10.4 [facility] Comment on above: Performed By: #### H EMONithin CMP3M, MG3 #### [address] [address] [place], [place] Glucose [Mass/Vol] 95 mg/dL Normal 70-100 [facility] Comment on above: Performed By: #### H EMOG CMP3M, MG3 #### [address] [address] [place], [place] ALP [Catalytic activity/Vol] 81 U/L Normal 38-126 [facility] Comment on above: Performed By: #### H EMONithin CMP3M, MG3 #### [address] Anion gap [Moles/Vol] 12 Normal [facility] Comment on above: Performed By: #### H EMOG CMP3M, MG3 #### [facility] [address] [place], [place] AST [Catalytic activity/Vol] 23 U/L Normal 15-46 [facility] Comment on above: Performed By: #### H EMOG, CMP3M, MG3 #### [facility] [address] [place], [place] Bilirubin [Mass/Vol] 0.5 mg/dL Normal 0.2-1.3 [facility] Comment on above: Performed By: #### H EMOG, CMP3M, MG3 #### [address] [address] [place], [place] CO2 [Moles/Vol] 19 mmol/L Low 22-30 [facility] Comment on above: Performed By: #### H LETTY BASS MG3 #### [address] Creatinine [Mass/Vol] 0.48 mg/dL Low 0.52-1.25 [facility] Comment on above: Performed By: #### H LETTY BASS MG3 #### [address] GFR/1.73 sq M predicted among blacks MDRD (S/P/Bld) [Vol rate/Area] mL/min/{1.73_m2} Normal >60 [facility] Comment on above: Performed By: #### H LETTY BASS MG3 #### [address] [address] [place], [place] GFR/1.73 sq M predicted among non-blacks MDRD (S/P/Bld) [Vol rate/Area] mL/min/{1.73_m2} Normal >60 [facility] Comment on above: Result Comment: KDIG O [...] tubular creatinine secretion. Performed By: #### H LETTY BASS, MG3 #### [address] Protein [Mass/Vol] 7.5 g/dL Normal 6.3-8.2 [facility] Comment on above: Performed By: #### H EMOG, CMP3M, MG3 #### [address] [address] [address] [place], [place] Urea nitrogen [Mass/Vol] 9 mg/dL Normal 7-20 [facility] Comment on above: Performed By: #### H EMOG, CMP3M, MG3 #### [address] [address] [address] [place], [place] Potassium [Moles/Vol] 3.4 mmol/L Low 3.5-5.1 [facility] Comment on above: Performed By: #### H EMOG, CMP3M, MG3 #### [address] [address] [place], [place] Albumin [Mass/Vol] 4.5 g/dL Normal 3.5-5.0 [facility] Comment on above: Performed By: #### H EMOG CMP3M, MG3 #### [address] [address] [place], [place] Sodium [Moles/Vol] 137 mmol/L Normal 135-145 [facility] Comment on above: Performed By: #### H EMOG, CMP3M, MG3 #### [address] [address] [place], [place] Chloride [Moles/Vol] 106 mmol/L Normal 98-107 [facility] Comment on above: Performed By: #### H EMOG, CMP3M, MG3 #### [address] [address] [place], [place] Complete Urinalysison 2019 Appearance (U) Clear Normal Clear [facility] Comment on above: Result Comment: . Performed By: #### C UA2, HCGUR #### [address] Bilirubin,Urine Negative Normal Negative [facility] Comment on above: Result Comment: . Performed By: #### C UA2, HCGUR #### [address] [address] [place], [place] Color (U) Light-Yellow Normal Lt. Yellow [facility] Comment on above: Result Comment: . Performed By: #### C UA2, HCGUR #### [facility] [address], [place] Glucose Ql (U) Normal Normal Normal (<70) [facility] Comment on above: Result Comment: . Performed By: #### C UA2, HCGUR #### [facility] [address] [place], [place] Ketone,Urine Negative Normal Negative [facility] Comment on above: Result Comment: . Performed By: #### C UA2, HCGUR #### [address] [address] [address], [place] Leukocytes,Urine Negative Normal Negative [facility] Comment on above: Result Comment: . Performed By: #### C UA2, HCGUR #### [address] [address] [address], [place] Nitrites,Urine Negative Normal Negative [facility] Comment on above: Result Comment: . Performed By: #### C UA2, HCGUR #### [address] [address] [address] [place], [place] Occult Blood,Urine Negative Normal Negative [facility] Comment on above: Result Comment: . Performed By: #### C UA2, HCGUR #### [address] [address] [address] [place], [place] pH (U) 6.5 Normal 5.0-8.0 [facility] Comment on above: Result Comment: . Performed By: #### C UA2, HCGUR #### [address] [address] [address], [place] Protein (U) [Mass/Vol] Negative Normal Negative [facility] Comment on above: Result Comment: . Performed By: #### C UA2, HCGUR #### [address] [address] [place], [place] Specific [place],Urine 1.013 Normal 1.005 - 1.030 [facility] Comment on above: Result Comment: . Performed By: #### C UA2, HCGUR #### [address] [address] [place] [address] Urobilinogen,Urine Normal Normal Normal (0-1) [facility] Comment on above: Result Comment: . Performed By: #### C UA2, HCGUR #### [facility] [address] [place] [address] Comprehensive Metabolic Pane l w/ Reflex to MGon 10-07-2019 Albumin [Mass/Vol] 4.5 g/dL 3.5 - 5 g/dL [place] ALP [Catalytic activity/Vol] 81 U/L 38 - 126 U/L [place] ALT [Catalytic activity/Vol] 12 U/L 0 - 34 U/L [place] Comment on above: The ALT test is perf ormed by an updated assay method. Please note that the reference intervals have been changed and are now sex specific. Anion gap [Moles/Vol] 12 mmol/L [place] AST [Catalytic activity/Vol] 23 U/L 15 - 46 U/L [place] Bilirubin Ql (U) 0.5 mg/dL 0.2 - 1.3 mg/dL [place] Calcium [Mass/Vol] 9.4 mg/dL 8.4 - 10. 4 mg/dL [place] Chloride [Moles/Vol] 106 mmol/L 98 - 10 7 mmol/L [place] CO2 [Moles/Vol] 19 mmol/L Low 22 - 30 mmol/L [place] Creatinine [Mass/Vol] 0.48 mg/dL Low 0.52 - 1.25 mg/dL [place] EGFR IF NonAfrican [place]inean >90.0 >60 mL/min [place] Comment on above: KDIGO guidelines pro [...] MDRD (S/P/Bld) [Vol rate/Area] mL/min/{1.73_m2} >60 mL/min [place] Glucose [Mass/Vol] 95 mg/dL 70 - 100 mg/dL [place] Interpretation and review of laboratory results Abnormal [place] Potassium [Moles/Vol] 3.4 mmol/L Low 3.5 - 5.1 mmol/L [place] Protein [Mass/Vol] 7.5 g/dL 6.3 - 8.2 g/dL [place] Sodium [Moles/Vol] 137 mmol/L 135 - 145 mmol/L [place] Urea nitrogen [Mass/Vol] 9 mg/dL 7 - 20 mg/dL [place] Test Performed by [id number] [place] [address] HCG,Urine Qualon 10-07-2019 Beta HCG ( test) Ql (U) Negative Normal Negative [facility] Comment on above: Result Comment: Preg lin is the most common reason for HCG in urine, although choriocarcinoma, hydatidiform mole, and certain nontropho- blastic malignancies also result in detectable urinary HCG levels. Sensitivity = 20mIU/mL. Performed By: #### C UA2, HCGUR #### [address] [address] [place] [address] Hemogramon 10-07-2019 Erythrocyte distribution width (RBC) [Ratio] 13.0 % Normal 11.5-14.5 [facility] Comment on above: Performed By: #### H EMOG, CMP3M, MG3 #### [facility] [address] [place] [address] Hematocrit (Bld) [Volume fraction] 39.8 % Normal 35.0-47.0 [facility] Comment on above: Performed By: #### H SHELIA CMP3M, MG3 #### [address] [address] [place] Hemoglobin (Bld) [Mass/Vol] 13.0 g/dL Normal 11.7-16.0 [facility] Comment on above: Performed By: #### Juliane BASS CMP3M, MG3 #### [address] [address] [place], [place] MCH (RBC) [Entitic mass] 28.4 pg Normal 26.0-34.0 [facility] Comment on above: Performed By: #### H SHELIA CMP3M, MG3 #### [address] [address] [place], [place] MCHC (RBC) [Mass/Vol] 32.7 % Normal 32.0-36.0 [facility] Comment on above: Performed By: #### H SHELIA CMP3M, MG3 #### [address] MCV (RBC) [Entitic vol] 86.8 fL Normal 79.0-98.0 [facility] Comment on above: Performed By: #### H EMONithin CMP3M, MG3 #### [address] Platelet mean volume (Bld) [Entitic vol] 8.3 fL Normal 7.4-10.4 [facility] Comment on above: Performed By: #### Juliane EMONithin CMP3M, MG3 #### [address] [address] [place], [place] Platelets (Bld) [#/Vol] 37 10*3/uL Low 140-440 [facility] Comment on above: Performed By: #### H EMONithin CMP3M, MG3 #### [address] RBC (Bld) [#/Vol] 4.59 10*6/uL Normal 3.80-5.20 [facility] Comment on above: Performed By: #### H EMOG, CMP3M, MG3 #### [facility] [address] [place], [place] WBC (Bld) [#/Vol] 11.4 10*3/uL High 3.6-10.7 [facility] Comment on above: Performed By: #### H EMOG, CMP3M, MG3 #### [facility] [address], [place] Magnesiumon 10-07-2019 Magnesium [Mass/Vol] 1.8 mg/dL Normal 1.6-2.3 [facility] Comment on above: Performed By: #### H EMOG, CMP3M, MG3 #### [facility] [address], [place] Magnesium [Mass/Vol] 1.8 mg/dL 1.6 - 2 .3 mg/dL [place] Test Performed by [facility], [address] [place] [id number] [place] [address] , urineon 0 Beta HCG ( test) Ql (U) Negative Negative [place] Comment on above: is the mos t common reason for HCG in urine, although choriocarcinoma, hydatidiform mole, and certain nontropho- blastic malignancies also result in detectable urinary HCG levels. Sensitivity = 20mIU/mL. Test Performed by [facility], [address] [place] [address] Urinalysison 10-07-2019 Appearance (U) Clear Clear [place] Comment on above: . Bilirubin Urine Negative Negative mg/dL [place] Comment on above: . Color (U) Light-Yellow Lt. Yellow [place] Comment on above: . Glucose, Ur Normal Normal (<70) mg/dL [place] Comment on above: . Ketones Ql (U) Negative Negative mg/dL [place] Comment on above: . LEUKOCYTES, UA Negative Negative Judy/uL [place] Comment on above: . Nitrite, Urine Negative Negative [place] Comment on above: . Occult Blood,Urine Negative Negative mg/dL [place] Comment on above: . pH (U) 6.5 [pH] [place] Comment on above: . Protein (U) [Mass/Vol] Negative Negat forest mg/dL [place] Comment on above: . Specific [place], Urine 1.013 [place] Comment on above: . Urobilinogen, Urine Normal Normal (0-1) mg/dL [place] Comment on above: . Test Performed by [facility], [address] [place] [address] [place] Urinalysis, Office ([id number])Or dered By: Alexis Iqbal on 05-17-2019 Bilirubin [...] Medicine Work Phone: CBC & PLATELETS (AUTO) ([phone])Ordered By: Student Financial Services Counselor on 03-29-2019 Erythrocyte distribution width (RBC) [Ratio] 14.1 % Normal 12.3-15.4 [facility]; [facility] Work Phone: Comment on above: PATIENT NOT FASTINGP ERFORMED BY: CB [facility] Tnlepm7[address] [place] [id number] Hematocrit (Bld) [Volume fraction] 39.5 % Normal 34.0-46.6 [facility]; [facility] Work Phone: Comment on above: PATIENT NOT FASTINGP ERFORMED BY: CB [facility] Hqgtkr7697 [address] [place] [id number] Hemoglobin (Bld) [Mass/Vol] 13.0 g/dL Normal 11.1-15.9 [facility]; [facility] Work Phone: Comment on above: PATIENT NOT FASTINGP ERFORMED BY: CB [facility] Tkchif8699 [address] [place] [id number] MCH (RBC) [Entitic mass] 28.4 pg Normal 26.6-33.0 [facility]; [facility] Work Phone: Comment on above: PATIENT NOT FASTINGP ERFORMED BY: CB [facility] Lvamqn7918 [address] [facility] [id number] MCHC (RBC) [Mass/Vol] 32.9 g/dL Normal 31.5-35.7 [facility] prehensive Internal Medicine; [facility] Work Phone: Comment on above: PATIENT NOT FASTINGP ERFORMED BY: CB [facility] Bgngbh7765 Steven RoadDublin [place] [id number] MCV (RBC) [Entitic vol] 86 fL Normal 79-97 [facility]; [facility] Work Phone: Comment on above: PATIENT NOT FASTINGP ERFORMED BY: CB [facility] Tdzsoh8689 Steven RoadDublin [place] [id number] Platelets (Bld) [#/Vol] 288 {x10E3/uL} Normal 150-450 [facility]; [facility] Work Phone: Comment on above: PATIENT NOT FASTINGP ERFORMED BY: CB [facility] Yctxdh9614 Steven RoadDublin [place] [id number] Platelets (Bld) [#/Vol] 288 10*3/uL Normal 150-450 [facility]; [facility] Work Phone: Comment on above: PATIENT NOT FASTINGP ERFORMED BY: CB [facility] Whratm0285 Steven Road[address]ublin [place] [id number] RBC (Bld) [#/Vol] 4.58 {x10E6/uL} Normal 3.77-5.28 [facility]; [facility] Work Phone: Comment on above: PATIENT NOT FASTINGP ERFORMED BY: CB [facility] Cnxapd8223 Steven RoadDublin [place] [id number] RBC (Bld) [#/Vol] 4.58 10*6/uL Normal 3.77-5.28 [facility] Work Phone: Comment on above: PATIENT NOT FASTINGP ERFORMED BY: CB [facility] Qbkmel5536 Steven RoadDublin [place] [id number] WBC (Bld) [#/Vol] 6.3 {x10E3/uL} Normal 3.4-10.[address] [facility]; [facility] Work Phone: Comment on above: PATIENT NOT FASTINGP ERFORMED BY: CB [facility] Pjknay3960 [address] Road[address]ublin [place] [id number] WBC (Bld) [#/Vol] 6.3 10*3/uL Normal 3.4-10.8 Compre hensive [facility]; [facility] Work Phone: Comment on above: PATIENT NOT FASTINGP ERFORMED BY: [email or web address] [place] [id number] MAGNESIUM ([id number])Ordered By: Student Financial Services Counselor on 03-29-2019 Magnesium [Mass/Vol] 2.1 mg/dL Normal 1.6-2.3 [facility] rehensive Internal Medicine; [facility] Work Phone: Comment on above: PATIENT NOT FASTINGP ERFORMED BY: [email or web address] [employer] [place] [id number] POTASSIUM SERUM ([id number])Order ed By: Student Financial Services Counselor on 03-29-2019 Potassium [Moles/Vol] 4.0 mmol/L Normal 3.5-5.2 [facility] prehensive Internal Medicine; [facility] Work Phone: Comment on above: PATIENT NOT FASTINGP ERFORMED BY: [email or web address] GlobalView SoftwareSampson [facility] Center [id number] Urinalysis, Office ([phone])Or dered By: Prerna De La Garza on [...] Phone: CBC, Platelets & Auto Diff ( [phone])Ordered By: Student Financial Services Counselor on 10-24-2018 Basophils #/vol (Bld) 0.0 {x10E3/uL} Normal 0.0-0.2 [facility] Work Phone: Comment on above: PATIENT NOT FASTINGP ERFORMED BY: JORGE Blu HomesSampson Regional [facility] Center [id number] Basophils (Bld) [#/Vol] 0.0 10*3/uL Normal 0.0-0.2 [facility]; [facility] Work Phone: Comment on above: PATIENT NOT FASTINGP ERFORMED BY: XcaliaSam[facility] [id number] Basophils/100 WBC (Bld) 0 % Normal [facility] Work Phone: Comment on above: PATIENT NOT FASTINGP ERFORMED BY: [facility]iaSam[facility] [id number] Eosinophils #/vol (Bld) 0.1 {x10E3/uL} Normal 0.0-0.4 [facility] Work Phone: Comment on above: PATIENT NOT FASTINGP ERFORMED BY: CB [facility] Vgpqup3361 Steven Road[address]ublin [place] [id number] Eosinophils (Bld) [#/Vol] 0.1 10*3/uL Normal 0.0-0.4 [facility]; [facility] Work Phone: Comment on above: PATIENT NOT FASTINGP ERFORMED BY: CB [facility] Oslotq2958 [address] Road[address] [place] [id number] Eosinophils/100 WBC (Bld) 2 % Normal [facility] Work Phone: Comment on above: PATIENT NOT FASTINGP ERFORMED BY: CB [facility] Mdmccs1333 Steven RoadAtrium Health [facility] Centerin [place] [id number] Erythrocyte distribution width Ratio (RBC) 13.1 % Normal 12.3-15.4 [facility] Work Phone: Comment on above: PATIENT NOT FASTINGP ERFORMED BY: CB [facility] Wixnun5267 Steven RoadAtrium Health [facility] Centerin [place] [id number] Hematocrit Volume Fraction (Bld) 36.7 % Normal 34.0-46.6 [facility] Work Phone: Comment on above: PATIENT NOT FASTINGP ERFORMED BY: CB [facility] Lebqlw7800 Steven RoadAtrium Health [facility] Centerin [place] [id number] Hemoglobin mass conc (Bld) 12.5 g/dL Normal 11.1-15.9 [facility] Work Phone: Comment on above: PATIENT NOT FASTINGP ERFORMED BY: CB [facility] Jxqlva0636 Steven RoadDublin [place] [id number] Immature granulocytes #/vol (Bld) 0.0 {x10E3/uL} Normal 0.0-0.1 [facility] Work Phone: Comment on above: PATIENT NOT FASTINGP ERFORMED BY: CB [facility] Qbyfep2457 [address] RoadD[address] [place] [id number] Immature granulocytes (Bld) [#/Vol] 0.0 10*3/uL Normal 0.0-0.1 [facility]; [facility] Work Phone: Comment on above: PATIENT NOT FASTINGP ERFORMED BY: JORGE [facility] Zfrluu7038 [address] [facility] [id number] Immature granulocytes/100 WBC (Bld) 0 % Normal [facility] Work Phone: Comment on above: PATIENT NOT FASTINGP ERFORMED BY: CB [facility] Pnsjtr8347 [address] [facility] [id number] Lymphocytes #/vol (Bld) 1.5 {x10E3/uL} Normal 0.7-3.1 [facility] Work Phone: Comment on above: PATIENT NOT FASTINGP ERFORMED BY: LabCoHackensack University Medical CenterHpikqo5261 [address] [facility] [id number] Lymphocytes (Bld) [#/Vol] 1.5 10*3/uL Normal 0.7-3.1 [facility]; [facility] Work Phone: Comment on above: PATIENT NOT FASTINGP ERFORMED BY: LabCoHackensack University Medical CenterIeufwk1168 [address] [facility] [id number] Lymphocytes/100 WBC (Bld) 20 % Normal [facility] Work Phone: Comment on above: PATIENT NOT FASTINGP ERFORMED BY: [facility] Pclcvg0476 [facility] [id number] MCH Entitic mass (RBC) 29.1 pg Normal 26.6-33.0 [facility] Internal Medicine Work Phone: Comment on above: PATIENT NOT FASTINGP ERFORMED BY: CB [facility] Cqaemv8355 [address] [facility] [id number] MCHC mass conc (RBC) 34.1 g/dL Normal 31.5-35.7 [facility] Internal Medicine Work Phone: Comment on above: PATIENT NOT FASTINGP ERFORMED BY: [facility] Rwqgof2332 [address] [facility] [id number] MCV Entitic volume (RBC) 86 fL Normal 79-97 [facility] Work Phone: Comment on above: PATIENT NOT FASTINGP ERFORMED BY: CB [facility] Snraje0420 [address] RoadD[address] [place] [id number] Monocytes #/vol (Bld) 0.5 {x10E3/uL} Normal 0.1-0.9 [facility] Work Phone: Comment on above: PATIENT NOT FASTINGP ERFORMED BY: CB [facility] Taemeg9556 [address] RoadD[address] [place] [id number] Monocytes (Bld) [#/Vol] 0.5 10*3/uL Normal 0.1-0.9 [facility]; [facility] Work Phone: Comment on above: PATIENT NOT FASTINGP ERFORMED BY: CB [facility] Anaobf7534 [address] Road[address] [place] [id number] Monocytes/100 WBC (Bld) 7 % Normal [facility] Work Phone: Comment on above: PATIENT NOT FASTINGP ERFORMED BY: CB [facility] Ibpcpi7280 [address] RoadD[address] [place] [id number] Neutrophils #/vol (Bld) 5.5 {x10E3/uL} Normal 1.4-7.0 [facility] Work Phone: Comment on above: PATIENT NOT FASTINGP ERFORMED BY: CB [facility] Zpqfcv0378 [address] Road[address] [place] [id number] Neutrophils (Bld) [#/Vol] 5.5 10*3/uL Normal 1.4-7.0 [facility]; [facility] Work Phone: Comment on above: PATIENT NOT FASTINGP ERFORMED BY: CB [facility] Rryled5333 [address] Road[address] [place] [id number] Neutrophils/100 WBC (Bld) 71 % Normal [facility] Work Phone: Comment on above: PATIENT NOT FASTINGP ERFORMED BY: CB [facility] Lfiove0923 [address] RoadD[address] [place] [id number] Platelets #/vol (Bld) 244 {x10E3/uL} Normal 150-450 [facility] Work Phone: Comment on above: PATIENT NOT FASTINGP ERFORMED BY: CB [facility] Rrbbqq1145 [address] Road[address] [place] [id number] Platelets (Bld) [#/Vol] 244 10*3/uL Normal 150-450 [facility]; [facility] Work Phone: Comment on above: PATIENT NOT FASTINGP ERFORMED BY: CB [facility] Wuilgz5145 [address] [facility] Hospitalblin [place] [id number] RBC #/vol (Bld) 4.29 {x10E6/uL} Normal 3.77-5.28 [facility] Internal Medicine Work Phone: Comment on above: PATIENT NOT FASTINGP ERFORMED BY: CB [facility] Rwfofy9788 [address] Roadbl[address] [place] [id number] RBC (Bld) [#/Vol] 4.29 10*6/uL Normal 3.77-5.28 [facility]; [facility] Work Phone: Comment on above: PATIENT NOT FASTINGP ERFORMED BY: CB [facility] Zxejwi4383 [address] [facility] HospitalDublin [place] [id number] WBC #/vol (Bld) 7.6 {x10E3/uL} Normal 3.4-10.8 [facility] Internal Medicine Work Phone: Comment on above: PATIENT NOT FASTINGP ERFORMED BY: CB [facility] Qvetwg8210 [address] Road[address] [place] [id number] WBC (Bld) [#/Vol] 7.6 10*3/uL Normal 3.4-10.8 [facility]; [facility] Work Phone: Comment on above: PATIENT NOT FASTINGP ERFORMED BY: CB [facility] Ifgxhc3816 [address] [facility] HospitalDublin [place] [id number] EBV Panel ([id number])Ordered By: Student Financial Services Counselor on 10-24-2018 EBV capsid IgG IA Qn (S) 64.3 U/mL Abnormal 0.0-17.9 [facility] Work Phone: Comment on above: Negative <18.0 Equiv ocal 18.0 - 21.9 Positive >21.9 PATIENT NOT FASTINGP ERFORMED BY: [facility]6370 [facility] [id number] EBV capsid IgM IA Qn (S) <36.0 Normal 0.0-35.9 [facility] Work Phone: Comment on above: Negative <36.0 Equiv ocal 36.0 - 43.9 Positive >43.9 PATIENT NOT FASTINGP ERFORMED BY: [facility]6370 [facility] [id number] EBV early IgG Qn (S) <9.0 Normal 0.0-8.9 [facility] Work Phone: Comment on above: Negative < 9.0 Equiv ocal 9.0 - 10.9 Positive >10.9 PATIENT NOT FASTINGP ERFORMED BY: [facility]6370 [facility] [id number] EBV nuclear IgG IA Qn (S) 183.0 U/mL Abnormal 0.0-17.9 [facility] Work Phone: Comment on above: Negative <18.0 Equiv ocal 18.0 - 21.9 Positive >21.9 PATIENT NOT FASTINGP ERFORMED BY: [facility]6370 [facility] [id number] Service comment Interp (Unsp spec) SPRCS Normal [facility] Work Phone: Comment on above: EBV Interpretation Robert marcial . Interpretation EBV-IgM EA(D)-IgG VCA-IgG EBNA-IgG . EBV Seronegative - - - - Early Phase + - - - Acute Primary + +or- + - Infection Convalescence/Past - +or- + + Infection Reactivated +or- +or- + + Infection + Antibody Present - Antibody Absent PATIENT NOT FASTINGP ERFORMED BY: [facility]6370 [facility] [id number] MONOSPOT TEST ([id number])Ordered By: Student Financial Services Counselor on 10-24-2018 Heterophile Ab LA Ql (S) Negative Normal [facility] Work Phone: Comment on above: The sensitivity of H eterophile antibody testing is 80-90%.Gladis Aragon IgM testing offers higher sensitivity. PATIENT NOT FASTINGP ERFORMED BY: JORGE Granger[address] [facility] [id number] Heterophile Ab LA Ql (S) Negative Normal [facility]; [facility] Work Phone: Comment on above: The sensitivity of H eterophile antibody testing is 80-90%.Gladis Aragon IgM testing offers higher sensitivity. PATIENT NOT FASTINGP ERFORMED BY: JORGE Brionesrp Keckve1382 [facility] [id number] Metabolic Panel, Comprehensi ve ([id number])Ordered By: Student Financial Services Counselor on 10-24-2018 Albumin mass conc 4.8 g/dL Normal 3.5-5.5 [facility]pre[facility] Work Phone: Comment on above: PATIENT NOT FASTINGP ERFORMED BY: JORGE Granger6370 [facility] [id number] Albumin/Globulin mass ratio 2.3 {ratio} Abnormal 1.2-2.2 [facility] Work Phone: Comment on above: PATIENT NOT FASTINGP ERFORMED BY: JORGE Granger6370 [facility] [id number] ALP [Catalytic activity/Vol] 71 U/L Normal 39-117 [facility]; [facility] Work Phone: Comment on above: PATIENT NOT FASTINGP ERFORMED BY: JORGE Storeylin6370 [facility] [id number] ALP enzyme act/vol 71 [iU]/L Normal 39-117 Compre [facility] Internal [facility] Work Phone: Comment on above: PATIENT NOT FASTINGP ERFORMED BY: JORGE LabMark Granger6370 [facility] [id number] ALT [Catalytic activity/Vol] 10 U/L Normal 0-32 [facility]; [facility] Work Phone: Comment on above: PATIENT NOT FASTINGP ERFORMED BY: JORGE LabMark StoreyClrars88[address] Steven RoadDublin [place] [id number] ALT enzyme act/vol 10 [iU]/L Normal 0-32 Compre [facility] Internal Medicine Work Phone: Comment on above: PATIENT NOT FASTINGP ERFORMED BY: CB [facility] Edzmhc9792 [address] RoadDublin [place] [id number] AST [Catalytic activity/Vol] 15 U/L Normal 0-40 [facility]; [facility] Work Phone: Comment on above: PATIENT NOT FASTINGP ERFORMED BY: CB [facility] Mzbcts2753 Steven RoadDublin [place] [id number] AST enzyme act/vol 15 [iU]/L Normal 0-[address] [facility] Internal Medicine Work Phone: Comment on above: PATIENT NOT FASTINGP ERFORMED BY: CB [facility] Cdxngm4965 Steven RoadDublin [place] [id number] Bilirubin mass conc 0.3 mg/dL Normal 0.0-1.2 Compr ensive Internal Medicine Work Phone: Comment on above: PATIENT NOT FASTINGP ERFORMED BY: CB [facility] Kbmdkt2101 Steven RoadDublin [place] [id number] Calcium mass conc 9.8 mg/dL Normal 8.7-10.2 Compreh ensive Internal Medicine Work Phone: Comment on above: PATIENT NOT FASTINGP ERFORMED BY: CB [facility] Drzryy7174 [address] RoadDublin [place] [id number] Chloride molar conc 108 mmol/L Abnormal 96-106 Compr ensive Internal Medicine Work Phone: Comment on above: PATIENT NOT FASTINGP ERFORMED BY: CB [facility] Ubfxil6020 [address] RoadDublin [place] [id number] CO2 molar conc 20 mmol/L Normal 20-29 Comprehens [facility] Work Phone: Comment on above: PATIENT NOT FASTINGP ERFORMED BY: CB [facility] Rvwmjm8109 [address] RoadDublin [place] [id number] Creatinine mass conc 0.70 mg/dL Normal 0.57-1.00 Comp rehensive Internal Medicine Work Phone: Comment on above: PATIENT NOT FASTINGP ERFORMED BY: CB [facility] Tdiien5657 Steven RoadDublin [place] [id number] GFR/1.73 sq M predicted among blacks CKD-EPI vol rate/area (S/P/Bld) 134 mL/min/1.73 Normal [facility] Work Phone: Comment on above: PATIENT NOT FASTINGP ERFORMED BY: CB [facility] Yksnru8727 [address] RoadDublin [place] [id number] GFR/1.73 sq M predicted among non-blacks CKD-EPI vol rate/area (S/P/Bld) 117 mL/min/1.73 Normal Comprehensiv e Internal Medicine Work Phone: Comment on above: PATIENT NOT FASTINGP ERFORMED BY: CB [facility] Nejcuu0913 [address] RoadDublin [place] [id number] Globulin mass conc (S) 2.1 g/dL Normal 1.5-4.5 Co mprehensive [facility] Medicine Work Phone: Comment on above: PATIENT NOT FASTINGP ERFORMED BY: CB [facility] Rullun2597 [address] RoadDublin [place] [id number] Glucose mass conc 87 mg/dL Normal 65-99 Compreh ensive Internal Medicine Work Phone: Comment on above: PATIENT NOT FASTINGP ERFORMED BY: CB [facility] Riljkj1589 [address] RoadDublin [place] [id number] Potassium molar conc 4.4 mmol/L Normal 3.5-5.2 Comp rehensive Internal Medicine Work Phone: Comment on above: PATIENT NOT FASTINGP ERFORMED BY: CB [facility] Giusvf9983 [address] RoadDublin [place] [id number] Protein mass conc 6.9 g/dL Normal 6.0-8.5 Compreh ensive Internal Medicine Work Phone: Comment on above: PATIENT NOT FASTINGP ERFORMED BY: CB [facility] Cldimh7426 [address] RoadDublin [place] [id number] Sodium molar conc 141 mmol/L Normal 134-144 Compreh ensive Internal Medicine Work Phone: Comment on above: PATIENT NOT FASTINGP ERFORMED BY: CB [facility] Mjlqhn4973 [address] RoadDublin [place] [id number] Urea nitrogen mass conc 11 mg/dL Normal 6-20 [facility] Work Phone: Comment on above: PATIENT NOT FASTINGP ERFORMED BY: CB [facility] Lwkyoy2782 [address] RoadDublin [place] [id number] Urea nitrogen/Creatinine mass ratio 16 mg/mg Normal 9-23 [facility] Work Phone: Comment on above: PATIENT NOT FASTINGP ERFORMED BY: CB [facility] Xcvgqs9598 [address] RoadDublin [place] [id number] Throat Culture ([id number])Ordere d By: Student Financial Services Counselor on 10-24-2018 Bacteria identified Respiratory culture Nom (Unsp spec) Final report Normal [facility] Work Phone: Comment on above: PATIENT NOT FASTINGP ERFORMED BY: CB [facility] Knqjvu9537 [address] RoadDublin [place] [id number] Information: SRC:TH Bacteria identified Respiratory culture Nom (Unsp spec) RRF Normal [facility] Work Phone: Comment on above: Routine respiratory mary PATIENT NOT FASTINGP ERFORMED BY: CB [facility] Xzfdqo4757 [address] RoadDublin [place] [id number] Information: SRC:TH Basic Metabolic Profile (BMP )on 05-04-2018 Basic metabolic 2000 panel 80 mg/dL Normal 74-106 [facility] Work Phone: Comment on above: Please note revised GLUCOSE reference range vjlhefycg99/02/2018. Basic metabolic 2000 panel 108 mL/min Normal [...] [facility] Work Phone: Basic metabolic 1999 panel 108 mmol/L Abnormal 98-107 [facility] [...] Comment on above: GFR Calc Basic metabolic 1999 panel 21.0 mmol/L Normal 21.0-32.0 [facility] Work Phone: CBC W/Diff, Automatedon 01-0 2-2019 Basophils/100 WBC Auto (Bld) 0.4 % Normal 0-1 [facility] Work Phone: Eosinophils/100 WBC Auto (Bld) 1.9 % Normal 0-5 [facility] Work Phone: Erythrocyte distribution width Auto Ratio (RBC) 13.5 % Normal 11.6-14.6 [facility] Work Phone: Hematocrit Auto Volume Fraction (Bld) 37.0 % Normal 37-47 [facility] Work Phone: Hemoglobin mass conc (Bld) 12.2 g/dL Normal 12.0-15.0 [facility] Work Phone: Lymphocytes/100 WBC Auto (Bld) 26.9 % Normal 19-41 [facility] Work Phone: MCH Auto Entitic mass (RBC) 28.3 pg Normal 27.0-32.0 [facility] Work Phone: MCHC Auto mass conc (RBC) 33.0 {g/gl} Normal 32-36 [facility] Work Phone: MCV Auto Entitic volume (RBC) 85.8 fL Normal 81-99 [facility] Internal Medicine Work Phone: Monocytes/100 WBC Auto (Bld) 7.1 % Normal 0-10 [facility] Internal Medicine Work Phone: Neutrophils/100 WBC Auto (Bld) 63.6 % Normal 47-70 [facility] Work Phone: Platelet mean volume Auto Entitic volume (Bld) 9.2 fL Normal 6.2-12.0 [facility] Internal Medicine Work Phone: Platelets Auto #/vol (Bld) 246 10*3/uL Normal 150-450 [facility] Internal Medicine Work Phone: RBC Auto #/vol (Bld) 4.31 {M/mm3} Normal 4.2-5.[address] [facility] Internal Medicine Work Phone: WBC Auto #/vol (Bld) 7.0 10*3/uL Normal 4.4-11.0 [facility] prehensive Internal Medicine Work Phone: CBC W/Diff, Automated 42.6 fL Normal 35.1-43.9 [facility] prehensive Internal Medicine Work Phone: CBC W/Diff, Automated 1.88 {X10_3/ul} Normal 0.83-4.51 [facility] Internal Medicine Work Phone: CBC W/Diff, Automated 4.5 {X10_3/uL} Normal 2.0-7.7 [facility] Work Phone: CBC W/Diff, Automated 0.100 % Normal 0.0-0.[address] [facility] Work Phone: Comment on above: IG% - Immature Granu locytes (promyelocytes, myelocytes andmetamyelocytes) > 1% indicates that a LEFT SHIFT is Present. Troponin-Ion 05-04-2018 Troponin I.cardiac mass conc ng/mL Normal [facility] Internal Medicine Work Phone: Comment on above: TROPONIN-I EXPECTED VALUES <0.045 Negative 0.045 - 0.590 Consistent with Cardiac Damage > OR = 0.600 Critical Value Not every elevated troponin is indicative of AR. Thesevalues should be used with clinical judgement in examiningthe patient's clinical picture for diagnosis. To establisha diagnosis of AR versus myocardial injury, there must be ademonstrated rise and/or fall in the troponin values, inaddition to ischemic symptoms, EKG changes, new regionalwall motion abnormality, and/or angiographical evidence. PLEASE NOTE: REFERENCE RANGES EDITED 17 hCG Titer Quant., Serumon HCG.beta subunit Qn m[IU]/mL Normal Compr ehensive Internal Medicine Work Phone: [facility] AB Modulatingon 018 Acetylcholine receptor modulation Ab/Acetylcholine Ab.total SFr (S) 56 % Abnormal 0-20 [facility] Work Phone: Comment on above: Negative: <21 Equivo hermes: 21 - 25 Positive: >25 The assay is linear between values of 12 and 64. Those <12 and >64 are reported as such. No single value for ACR-modulating antibody should be used as a sole basis for diagnosis or response to therapy.Performed at: [address] [id number] Director: Oscar Lynn MD, Phone: [phone] [facility] Purchasing Contracting Clerk AB, Blockingon Acetylcholine receptor blocking Ab Ql (S) 45 % Abnormal 0-25 [facility] Work Phone: Comment on above: Results verified b y repeat testing Negative: 0 - 25 Borderline: 26 - 30 Positive: >30Results for this test are for research purposesonly by the assay's counseling center manager. The performancecharacteristics of this product have not [...] A.D.A. criteria.Please note revised GLUCOSE reference range ywsngliwz70/02/2018. Basic metabolic 2000 panel 13.6 {RATIO} Normal [...] metabolic 2000 panel 19.0 mmol/L Abnormal 21.0-32.0 [facility] Work Phone: CBC W/Diff, Automatedon 10-1 Basophils/100 WBC Auto (Bld) 0.1 % Normal 0-1 [facility] Work Phone: Eosinophils/100 WBC Auto (Bld) 0.0 % Normal 0-5 [facility] Work Phone: Erythrocyte distribution width Auto Ratio (RBC) 13.3 % Normal 11.6-14.6 [facility] Work Phone: Hematocrit Auto Volume Fraction (Bld) 37.2 % Normal 37-47 [facility] Internal Medicine Work Phone: Hemoglobin mass conc (Bld) 12.8 g/dL Normal 12.0-15.0 [facility] Internal Medicine Work Phone: Lymphocytes/100 WBC Auto (Bld) 5.2 % Abnormal 19-41 [facility] Internal Medicine Work Phone: MCH Auto Entitic mass (RBC) 28.8 pg Normal 27.0-32.0 [facility] Internal [facility] Work Phone: MCHC Auto mass conc (RBC) 34.4 {g/gl} Normal 32-36 [facility] Internal Medicine Work Phone: MCV Auto Entitic volume (RBC) 83.8 fL Normal 81-99 [facility] Internal Medicine Work Phone: Monocytes/100 WBC Auto (Bld) 0.9 % Normal 0-10 [facility] Internal Medicine Work Phone: Neutrophils/100 WBC Auto (Bld) 93.7 % Abnormal 47-70 [facility] Internal Medicine Work Phone: Platelet mean volume Auto Entitic volume (Bld) 9.5 fL Normal 6.2-12.0 [facility] Internal [facility] Work Phone: Platelets Auto #/vol (Bld) 265 10*3/uL Normal 150-450 [facility] Internal [facility] Work Phone: RBC Auto #/vol (Bld) 4.44 {M/mm3} Normal 4.2-5.4 [facility] Internal Medicine Work Phone: WBC Auto #/vol (Bld) 9.3 10*3/uL Normal 4.4-11.[address] [facility] Work Phone: CBC W/Diff, Automated 0.48 {X10_3/ul} Abnormal 0.83-4.51 [facility] Internal Medicine Work Phone: CBC W/Diff, Automated 40.5 fL Normal 35.1-43.[address] [facility] Work Phone: CBC W/Diff, Automated 8.7 {X10_3/uL} Abnormal 2.0-7.7 [facility] Work Phone: CBC W/Diff, Automated RARE Normal Com prehensive Internal Medicine Work Phone: CBC W/Diff, Automated 0.100 % Normal 0.0-0.9 [facility] prehensive Internal Medicine Work Phone: Comment on above: IG% - Immature Granu locytes (promyelocytes, myelocytes andmetamyelocytes) > 1% indicates that a LEFT SHIFT is Present. CBC, Platelets & Auto Diff ( [id number])Ordered By: Student Financial Services Counselor on 01-24-2018 Basophils #/vol (Bld) 0.0 {x10E3/uL} Normal 0.0-0.2 [facility] Work Phone: Comment on above: PATIENT NOT FASTINGP ERFORMED BY: JORGE Local Offer Networkox RealRiderCritical access hospital [id number] Information: SRC:UC Basophils (Bld) [#/Vol] 0.0 10*3/uL Normal 0.0-0.2 [facility]; [facility] Work Phone: Comment on above: PATIENT NOT FASTINGP ERFORMED BY: [employer] LabNextGxDXrp Inside[employer].comox RealRiderCritical access hospital [id number] Information: SRC:UC Basophils/100 WBC (Bld) 0 % Normal [facility] Work Phone: Comment on above: PATIENT NOT FASTINGP ERFORMED BY: LabNextGxDXrp Coylft0689 [facility]SS[facility] [id number] Information: SRC:UC Eosinophils #/vol (Bld) 0.2 {x10E3/uL} Normal 0.0-0.4 [facility] Work Phone: Comment on above: PATIENT NOT FASTINGP ERFORMED BY: [employer] Mbavof6827 [facility]SS[facility] Re[facility] [id number] Information: SRC:UC Eosinophils (Bld) [#/Vol] 0.2 10*3/uL Normal 0.0-0.4 [facility]; [facility] Work Phone: Comment on above: PATIENT NOT FASTINGP ERFORMED BY: JORGE [facility] Obhgyp4307 Steven RoadDublin [place] [id number] Information: SRC:UC Eosinophils/100 WBC (Bld) 2 % Normal [facility] Work Phone: Comment on above: PATIENT NOT FASTINGP ERFORMED BY: JORGE [facility] Epssrc1379 [address] RoadDublin [place] [id number] Information: SRC:UC Erythrocyte distribution width Ratio (RBC) 14.4 % Normal 12.3-15.4 [facility] Work Phone: Comment on above: PATIENT NOT FASTINGP ERFORMED BY: JORGE [facility] Voicsg8475 [address] RoadDublin [place] [id number] Information: SRC:UC Hematocrit Volume Fraction (Bld) 37.8 % Normal 34.0-46.6 [facility] Work Phone: Comment on above: PATIENT NOT FASTINGP ERFORMED BY: JORGE [facility] Qhhosx1989 Steven RoadAtrium Health [facility] Centerin [place] [id number] Information: SRC:UC Immature granulocytes (Bld) [#/Vol] 0.0 10*3/uL Normal 0.0-0.1 [facility]; [facility] Work Phone: Comment on above: PATIENT NOT FASTINGP ERFORMED BY: JORGE Storeylin6370 [address] Roadblin [place] [id number] Information: SRC:UC Lymphocytes #/vol (Bld) 2.3 {x10E3/uL} Normal 0.7-3.1 [facility] Work Phone: Comment on above: PATIENT NOT FASTINGP ERFORMED BY: CB [facility] Rikbts0398 Steven RoadDublin [place] [id number] Information: SRC:UC Lymphocytes (Bld) [#/Vol] 2.3 10*3/uL Normal 0.7-3.1 [facility]; [facility] Work Phone: Comment on above: PATIENT NOT FASTINGP ERFORMED BY: JORGE [facility] Zgnhjg5291 [address] RoadDublin [place] [id number] Information: SRC:UC Lymphocytes/100 WBC (Bld) 30 % Normal [facility] Work Phone: Comment on above: PATIENT NOT FASTINGP ERFORMED BY: JORGE Granger6[address] [facility] [id number] Information: SRC:UC MCH Entitic mass (RBC) 28.0 pg Normal 26.6-33.0 [facility] Internal Medicine Work Phone: Comment on above: PATIENT NOT FASTINGP ERFORMED BY: JORGE [facility] Hjlcua5404 [facility] [id number] Information: SRC:UC MCHC mass conc (RBC) 33.6 g/dL Normal 31.5-35.7 [facility] Internal Medicine Work Phone: Comment on above: PATIENT NOT FASTINGP ERFORMED BY: JORGE Amador Storeylin6370 [facility] [id number] Information: SRC:UC MCV Entitic volume (RBC) 83 fL Normal 79-97 [facility] Work Phone: Comment on above: PATIENT NOT FASTINGP ERFORMED BY: JORGE [employer] Zdwubf0447 [facility] [id number] Information: SRC:UC Monocytes #/vol (Bld) 0.5 {x10E3/uL} Normal 0.1-0.9 [facility] Work Phone: Comment on above: PATIENT NOT FASTINGP ERFORMED BY: JORGE [facility] Yghcha8718 [facility] [id number] Information: SRC:UC Monocytes (Bld) [#/Vol] 0.5 10*3/uL Normal 0.1-0.9 [facility]; [facility] Work Phone: Comment on above: PATIENT NOT FASTINGP ERFORMED BY: JORGE LabMark StoreyTobckv2505 [facility] [id number] Information: SRC:UC Monocytes/100 WBC (Bld) 7 % Normal [facility] Work Phone: Comment on above: PATIENT NOT FASTINGP ERFORMED BY: CB [facility] Iwxdom9065 [address] RoadDublin [place] [id number] Information: SRC:UC Neutrophils #/vol (Bld) 4.5 {x10E3/uL} Normal 1.4-7.0 [facility] Work Phone: Comment on above: PATIENT NOT FASTINGP ERFORMED BY: CB [facility] Kocwuo4051 [address] RoadDublin [place] [id number] Information: SRC:UC Neutrophils (Bld) [#/Vol] 4.5 10*3/uL Normal 1.4-7.0 [facility]; [facility] Work Phone: Comment on above: PATIENT NOT FASTINGP ERFORMED BY: CB [facility] Cebquf4251 [address] RoadDublin [place] [id number] Information: SRC:UC Neutrophils/100 WBC (Bld) 61 % Normal [facility] Work Phone: Comment on above: PATIENT NOT FASTINGP ERFORMED BY: CB [facility] Uxmhcu0398 [address] RoadDublin [place] [id number] Information: SRC:UC Platelets #/vol (Bld) 331 {x10E3/uL} Normal 150-379 [facility] Work Phone: Comment on above: PATIENT NOT FASTINGP ERFORMED BY: CB [facility] Bjlwdo9259 [address] RoadDublin [place] [id number] Information: SRC:UC Platelets (Bld) [#/Vol] 331 10*3/uL Normal 150-379 [facility]; [facility] Work Phone: Comment on above: PATIENT NOT FASTINGP ERFORMED BY: CB [facility] Qoxwvz3235 [address] RoadDublin [place] [id number] Information: SRC:UC RBC #/vol (Bld) 4.53 {x10E6/uL} Normal 3.77-5.28 Comp [facility] Internal Medicine Work Phone: Comment on above: PATIENT NOT FASTINGP ERFORMED BY: CB [facility] Lmpvvx9514 [address] RoadDublin [place] [id number] Information: SRC: RBC (Bld) [#/Vol] 4.53 10*6/uL Normal 3.77-5.28 [facility] Internal Medicine; [facility] Work Phone: Comment on above: PATIENT NOT FASTINGP ERFORMED BY: [facility] Xkeane4359 Steven RealRiderCritical access hospital [id number] Information: SRC: WBC #/vol (Bld) 7.4 {x10E3/uL} Normal 3.4-10.8 [facility] Internal Medicine Work Phone: Comment on above: PATIENT NOT FASTINGP ERFORMED BY: [facility] Ahbbqs4852 [facility] [id number] Information: SRC: WBC (Bld) [#/Vol] 7.4 10*3/uL Normal 3.4-10.8 [facility]; [facility] Internal Medicine Work Phone: Comment on above: PATIENT NOT FASTINGP ERFORMED BY: [facility] Nfsjim9492 Steven RealRiderCritical access hospital [id number] Information: SRC: CBC, Platelets & Auto Diff ( [id number])on 01-24-2018 Basophils Auto #/vol (Bld) 0.0 {x10E3/uL} [...] on above: PATIENT NOT FASTINGP ERFORMED BY: [employer] Iwkepf9864 ChapatizCritical access hospital [id number] Information: SRC:UC Immature granulocytes #/vol (Bld) 0.0 {x10E3/uL} Normal 0.0-0.1 [facility] Work Phone: Comment on above: PATIENT NOT FASTINGP ERFORMED BY: [employer] Irjyox7802 Steven RealRiderCritical access hospital [id number] Information: SRC:UC Immature granulocytes/100 WBC (Bld) 0 % Normal [facility] Work Phone: Comment on above: PATIENT NOT FASTINGP ERFORMED BY: [employer] [address] [place] [address] [id number] Information: SRC:UC Lymphocytes Auto #/vol (Bld) 2.3 [...] 3.4-10.8 [facility] Work Phone: TSH (25454)on 01-24-2018 Thyrotropin Qn 2.510 {uIU/mL} Normal 0.450-4.50 0 [facility] Work Phone: Comment on above: PATIENT NOT FASTINGP ERFORMED BY: [employer] [place] [id number] URINE SARAH BETH CULTURE (TEN COL COUNT) ([id number])on 01-24-2018 Bacteria identified Cx Nom (U) Final report Normal [facility] Work Phone: Comment on above: PATIENT NOT FASTINGP ERFORMED BY: [employer] [place] [id number] Bacteria identified Cx Nom (U) MUG Normal [facility] Work Phone: Comment on above: Mixed urogenital eddie ra1,000 Colonies/mL PATIENT NOT FASTINGP ERFORMED BY: [employer] [place] [id number] Urinalysis, Office ([id number])Or dered By: Madai Dunbar on 01-24-2018 Bilirubin [...] Relative Density (U) 1.030 1 Abnormal Comprehensi Internal Medicine Work Phone: Urobilinogen mass/time (24H U) Normal Normal [facility] Work Phone: CBC W/Diff, Automatedon 09-0 -2017 Absolute Lymph 2.28 {X10_3/ul} Normal 0.83-4.51 Compr ehensive Internal Medicine Work Phone: Absolute Neut 3.8 {X10_3/uL} Normal 2.0-7.7 Compreh ensive Internal Medicine Work Phone: Basophils/100 WBC Auto (Bld) 0.4 % Normal 0-1 [facility] Work Phone: Eosinophils/100 WBC Auto (Bld) 2.4 % Normal 0-5 [facility] Work Phone: Erythrocyte distribution width Auto Ratio (RBC) 13.6 % Normal 11.6-14.6 [facility] Internal Medicine Work Phone: Hematocrit Auto Volume Fraction (Bld) 38.4 % Normal 37-47 [facility] Work Phone: Hemoglobin mass conc (Bld) 12.6 g/dL Normal 12.0-15.0 [facility] Work Phone: IM GRAN % 0.000 % Normal 0.0-0.9 [facility] Work Phone: Comment on above: IG% - Immature Granu locytes (promyelocytes, myelocytes andmetamyelocytes) > 1% indicates that a LEFT SHIFT is Present. Lymphocytes/100 WBC Auto (Bld) 34.1 % Normal 19-41 [facility] Internal Medicine Work Phone: MCH Auto Entitic mass (RBC) 27.3 pg Normal 27.0-32.0 [facility] Internal Medicine Work Phone: MCHC Auto mass conc (RBC) 32.8 {g/gl} Normal 32-36 [facility] Internal Medicine Work Phone: MCV Auto Entitic volume (RBC) 83.3 fL Normal 81-99 [facility] Internal Medicine Work Phone: Monocytes/100 WBC Auto (Bld) 7.0 % Normal 0-10 [facility] Work Phone: Monocytes/100 WBC Auto (Bld) 7.0 % Normal 0-10 [facility] Internal Medicine Work Phone: Neutrophils/100 WBC Auto (Bld) 56.1 % Normal 47-70 [facility] Internal Medicine Work Phone: Platelet mean volume Auto Entitic volume (Bld) 9.2 fL Normal 6.2-12.0 [facility] Internal Medicine Work Phone: Platelets Auto #/vol (Bld) 220 10*3/uL Normal 150-450 [facility] Internal Medicine Work Phone: RBC Auto #/vol (Bld) 4.61 {M/mm3} Normal 4.2-5.4 [facility] Work Phone: RDW SD 41.2 fL Normal 35.1-43.9 [facility] Work Phone: WBC Auto #/vol (Bld) 6.7 10*3/uL Normal 4.4-11.0 [facility] prehensive Internal Medicine Work Phone: CBC W/Diff, Automated 41.2 fL Normal 35.1-43.9 [facility] prehensive Internal Medicine Work Phone: CBC W/Diff, Automated 0.000 % Normal 0.0-0.9 [facility] prehensive Internal Medicine Work Phone: Comment on above: IG% - Immature Granu locytes (promyelocytes, myelocytes andmetamyelocytes) > 1% indicates that a LEFT SHIFT is Present. CBC W/Diff, Automated 3.8 {X10_3/uL} Normal 2.0-7.7 [facility] Work Phone: CBC W/Diff, Automated 2.28 {X10_3/ul} Normal 0.83-4.51 [facility] Work Phone: Comprehensive Metabolic Prof [facility] 01-07-2018 Comprehensive metabolic 2000 panel 1.3 {RATIO} [...] above: Please note revised GLUCOSE reference range jpfsjficr90/02/2018. Comprehensive metabolic 2000 panel 112 mmol/L Abnormal [...] Phone: ,Serum,hCG Quali. Negative Normal 0-9 Nonpreg [facility] Internal Medicine Work Phone: Urinalysis, Completeon 01-07 CLARITY Cloudy Normal [facility] Internal Medicine Work Phone: COLOR Yellow Normal [facility] Work Phone: GLUCOSE, UR Normal Normal [facility] Internal Medicine Work Phone: LEUK ESTERASE 100 /ul Abnormal Comprehensi ve Internal Medicine Work Phone: MUCUS, URINE 1+ Normal Comprehensiv e Internal Medicine Work Phone: NITRITE UR Negative Normal [facility] Internal Medicine Work Phone: OCCULT BLOOD-UR 10 /ul Abnormal Comprehen [facility] Internal Medicine Work Phone: pH UR 7.0 1 Normal 5.0 - 8.0 [facility] Internal Medicine Work Phone: PROT DIPSTX 15 mg/dL Abnormal [facility] Work Phone: RBC Test strip #/vol (U) 0 SEEN Normal 0-5 [facility] Internal Medicine Work Phone: SP.GR. DIPSTX 1.015 1 Normal 1.002-1.03 0 [facility] Internal Medicine Work Phone: WBC 5-10 SEEN Normal 5-10 [facility] Work Phone: ,Serum,hCG Quali.on 11-10-2017 HCG Qual triggr < 1 Normal Comprehen [facility] Internal Medicine Work Phone: HCGSQUAL Negative Normal [...] above: Please note revised GLUCOSE reference range ujwvznwlp67/02/2018. Basic metabolic 2000 panel 8.6 mg/dL Normal [...] mass conc (Bld) 12.2 g/dL Normal 12.0-15.0 [facility] Work Phone: IM GRAN % 0.000 % Normal 0.0-0.9 [facility] Work Phone: Comment on above: IG% - Immature Granu locytes (promyelocytes, myelocytes andmetamyelocytes) > 1% indicates that a LEFT SHIFT is Present. Lymphocytes/100 WBC Auto (Bld) 22.4 % Normal 19-41 [facility] Work Phone: MCH Auto Entitic mass (RBC) 26.9 pg Abnormal 27.0-32.0 [facility] Work Phone: MCHC Auto mass conc (RBC) 32.3 {g/gl} Normal 32-36 [facility] Work Phone: MCV Auto Entitic volume (RBC) 83.3 fL Normal 81-99 [facility] Work Phone: Monocytes/100 WBC Auto (Bld) 6.8 % Normal 0-10 [facility] Work Phone: Monocytes/100 WBC Auto (Bld) 6.8 % Normal 0-10 [facility] Work Phone: Neutrophils/100 WBC Auto (Bld) 68.7 % Normal 47-70 [facility] Work Phone: Platelet mean volume Auto Entitic volume (Bld) 9.3 fL Normal 6.2-12.0 [facility] Work Phone: Platelets Auto #/vol (Bld) 225 10*3/uL Normal 150-450 [facility] Internal Medicine Work Phone: RBC Auto #/vol (Bld) 4.54 {M/mm3} Normal 4.2-5.[address] [facility] Internal Medicine Work Phone: RDW SD 41.5 fL Normal 35.1-43.9 [facility] Internal Medicine Work Phone: WBC Auto #/vol (Bld) 6.7 10*3/uL Normal 4.4-11.[address] [facility] [address] Work Phone: CBC W/Diff, Automated 41.5 fL Normal 35.1-43.9 [facility] Internal Medicine Work Phone: CBC W/Diff, Automated 1.51 {X10_3/ul} Normal 0.83-4.51 [facility] Internal Medicine Work Phone: CBC W/Diff, Automated 4.6 {X10_3/uL} Normal 2.0-7.7 [facility] Internal Medicine Work Phone: CBC W/Diff, Automated 0.000 % Normal 0.0-0.9 [facility] Internal Medicine Work Phone: Comment on above: IG% - Immature Granu locytes (promyelocytes, myelocytes andmetamyelocytes) > 1% indicates that a LEFT SHIFT is Present. Lamotrigine (Lamictal) Level on 11-03-2017 Lamotrigine mass conc 4.5 ug/mL Normal 2.0-20.0 [facility] Internal Medicine Work Phone: Comment on above: Detection Limit = 1. 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 All questions were answered and the family/patient/lamination inspector were encouraged toask questions.Review:History :Watery itchy eyesNo FB injuryNo uri at workEOMINo infection no pain on palpation of lids Active alert no distressTM clearNodes noneNeck supple is well hydrated, non toxic,neuro neurologically intact and is appropriate per age.cardio normal cvs normal with adequate perfusion lungs clearlungs with no distress-no rash-abd no masses or pain noted.Plan:Corneal abrasiontreat Normal [facility] Human Herpsvirus 6 (HHV-6) [facility] ([id number])on 06-04-2017 Herpes virus 6 IgG Ql (S) 6.10 {index} Abnormal [facility] Work Phone: Comment on above: Negative <0.76 Equiv ocal 0.76 - 0.99 Positive >0.99 Results for this test are for research purposes only by the assay's counseling center manager. The performance characteristics of this product have not been established. Results should not be used as a diagnostic procedure without confirmation of the diagnosis by another medically established diagnostic product or procedure. PATIENT NOT FASTINGP ERFORMED BY: LabCo[address] [id number] Human Herpsvirus 6 (HHV-6), [facility] ([id number])on 06-04-2017 Herpes virus 6 IgM IF titer (S) <1:10 Normal [facility] Work Phone: Comment on above: This test was devmeryo ped and its performance characteristicsdetermined by [employer]. It has not been cleared or approvedby the Food and Drug Administration. PATIENT NOT FASTINGP ERFORMED BY: Chinese OnlineMike [place] [address] [facility] [id number] EFE (ANTINUCLEAR ANTIBODY) ( 89573)on 05-31-2017 Nuclear Ab Ql (S) Negative Normal Compreh ensive Internal Medicine Work Phone: Comment on above: PATIENT NOT FASTINGP ERFORMED BY: [employer] Pmwljs8028 Steven RoadDublin [place] [id number] EFE (ANTINUCLEAR ANTIBODY) ( 50258)Ordered By: Student Financial Services Counselor on 05-31-2017 Nuclear Ab Ql (S) Negative Normal Compreh ensive Internal Medicine; [facility] Work Phone: Comment on above: PATIENT NOT FASTINGP ERFORMED BY: Chinese OnlineHackensack University Medical CenterWlshfw75[address] RealRiderDublin [place] [id number] C-REACTIVE PROTEIN (66142)Or dered By: Student Financial Services Counselor on 05-31-2017 CRP [Mass/Vol] mg/L Normal 0.0-4.9 [facility]; [facility] Work Phone: Comment on above: PATIENT NOT FASTINGP ERFORMED BY: [employer] Ysodsz6646 GlobalView Softwareblin [place] [id number] C-REACTIVE PROTEIN (11229)on 05-31-2017 CRP mass conc mg/L Normal 0.0-4.9 Comprehensi ve Internal Medicine Work Phone: Comment on above: PATIENT NOT FASTINGP ERFORMED BY: [employer] Xqphop4027 Steven RoadDublin [place] [id number] CALCIFIDIOL (71988) VIT D 25 on 05-31-2017 25-Hydroxyvitamin D2+25-Hydroxyvitamin D3 mass conc 19.4 ng/mL Abnormal 30.0-100.0 [facility] Work Phone: Comment on above: Vitamin D deficiency has been defined by the [place] ofMedicine and an Endocrine Society practice guideline as alevel of serum 25-OH vitamin D less than 20 ng/mL (1,2).The Endocrine Society went on to further define vitamin Dinsufficiency as a level between 21 and 29 ng/mL (2).1. IOM ([place] of Medicine). 2010. Dietary reference intakes for calcium and D. [place]: The National Academies Press.2. Solange MF, Maximiliano GARCIA, Earle BOURNE, et al. Evaluation, treatment, and prevention of vitamin D deficiency: an Endocrine Society clinical practice guideline. JCEM. 2010; 96(7):1911-30. PATIENT NOT FASTINGP ERFORMED BY: UAB FIMA70 GlobalView SoftwareSampson Regional Medical Center [id number] CBC (AUTO) (17475)on 018 Erythrocyte distribution width Auto Ratio (RBC) 14.5 % Normal 12.3-15.4 [facility] Work Phone: Hematocrit Auto Volume Fraction (Bld) 36.3 % Normal 34.0-46.6 [facility] Work Phone: Hemoglobin mass conc (Bld) 12.1 g/dL Normal 11.1-15.9 [facility] Work Phone: Comment on above: PATIENT NOT FASTINGP ERFORMED BY: wuaki.tv6370 [facility] [id number] MCH Auto Entitic mass (RBC) 26.9 pg Normal 26.6-33.0 [facility] Work [...] Auto #/vol (Bld) 8.5 {x10E3/uL} Normal 3.4-10.8 [facility] Work Phone: CBC (AUTO) (96273)Ordered By : Student Financial Services Counselor on 05-31-2017 Erythrocyte distribution width Ratio (RBC) 14.5 % Normal 12.3-15.4 [facility] Work Phone: Comment on above: PATIENT NOT FASTINGP ERFORMED BY: CB [facility] Lhrdzt2685 Steven RoadDublin [place] [id number] Hematocrit Volume Fraction (Bld) 36.3 % Normal 34.0-46.6 [facility] Internal Medicine Work Phone: Comment on above: PATIENT NOT FASTINGP ERFORMED BY: CB [facility] Egyjom1931 Steven RoadDublin [place] [id number] MCH Entitic mass (RBC) 26.9 pg Normal 26.6-33.0 [facility] Internal Medicine Work Phone: Comment on above: PATIENT NOT FASTINGP ERFORMED BY: CB [facility] Uqjkkk0619 Steven RoadDublin [place] [id number] MCHC mass conc (RBC) 33.3 g/dL Normal 31.5-35.7 [facility] Internal Medicine Work Phone: Comment on above: PATIENT NOT FASTINGP ERFORMED BY: CB [facility] Mhrvbv4008 Steven RoadDublin [place] [id number] MCV Entitic volume (RBC) 81 fL Normal 79-97 [facility] Internal Medicine Work Phone: Comment on above: PATIENT NOT FASTINGP ERFORMED BY: CB [facility] Crtldz9565 Steven RoadDublin [place] [id number] Platelets #/vol (Bld) 310 {x10E3/uL} Normal 150-379 [facility] Work Phone: Comment on above: PATIENT NOT FASTINGP ERFORMED BY: CB [facility] Uwhljf1455 Steven RoadDublin [place] [id number] Platelets (Bld) [#/Vol] 310 10*3/uL Normal 150-379 [facility]; [facility] Internal Medicine Work Phone: Comment on above: PATIENT NOT FASTINGP ERFORMED BY: JORGE Lab[facility] Vjkwpi2721 [facility] [id number] RBC #/vol (Bld) 4.50 {x10E6/uL} Normal 3.77-5.28 Comp [facility] Internal Medicine Work Phone: Comment on above: PATIENT NOT FASTINGP ERFORMED BY: CB LabCoHackensack University Medical CenterCfhbba1441 [facility] [id number] RBC (Bld) [#/Vol] 4.50 10*6/uL Normal 3.77-5.28 Compr ensive Internal Medicine; [facility] Work Phone: Comment on above: PATIENT NOT FASTINGP ERFORMED BY: LabBarn[facility] Lhylrg3322 [facility] [id number] WBC #/vol (Bld) 8.5 {x10E3/uL} Normal 3.4-10.8 Compr [email or web address] Internal Medicine Work Phone: Comment on above: PATIENT NOT FASTINGP ERFORMED BY: LabCoHackensack University Medical CenterYcbwvy5311 [facility] [id number] WBC (Bld) [#/Vol] 8.5 10*3/uL Normal 3.4-10.8 Compre [facility] Internal Medicine; [facility] Internal Medicine Work Phone: Comment on above: PATIENT NOT FASTINGP ERFORMED BY: LabUp Health System6370 [facility] [id number] CMV IGM ANTBDY (69746)on CMV IgM IA Qn <30.0 Normal 0.0-29.9 [facility] Internal [facility] Work Phone: Comment on above: Negative <30.0 Equiv ocal 30.0 - 34.9 Positive >34.9 A positive result is generally indicative of acute infection, reactivation or persistent IgM production. PATIENT NOT FASTINGP ERFORMED BY: LabCoHackensack University Medical CenterCcsqxm9316 [facility] [id number] EBV Panel (07281)on 05-31-19 18 EBV capsid IgG IA Qn (S) 99.6 U/mL Abnormal 0.0-17.9 [facility] Work Phone: Comment on above: Negative <18.0 Equiv ocal 18.0 - 21.9 Positive >21.9 PATIENT NOT FASTINGP ERFORMED BY: JORGE [employer] Dgyelk0113 StevenEverySignalCritical access hospital [id number] EBV capsid IgM IA Qn (S) <36.0 Normal 0.0-35.9 [facility] Work Phone: Comment on above: Negative <36.0 Equiv ocal 36.0 - 43.9 Positive >43.9 PATIENT NOT FASTINGP ERFORMED BY: [employer] Dmixdv9581 [facility] [id number] EBV early IgG Qn (S) <9.0 Normal 0.0-8.9 Comp [facility] Internal Medicine Work Phone: Comment on above: Negative < 9.0 Equiv ocal 9.0 - 10.9 Positive >10.9 PATIENT NOT FASTINGP ERFORMED BY: [employer] Kdhpbh8009 [address] RealRiderCritical access hospital [id number] EBV nuclear IgG IA Qn (S) 249.0 U/mL Abnormal 0.0-17.9 [facility] Work Phone: Comment on above: Negative <18.0 Equiv ocal 18.0 - 21.9 Positive >21.9 PATIENT NOT FASTINGP ERFORMED BY: [employer] Glyvzp1013 [facility] [id number] Service comment Interp (Unsp spec) SPRCS Normal [facility] Work Phone: Comment on above: EBV Interpretation C aggie . Interpretation EBV-IgM EA(D)-IgG VCA-IgG EBNA-IgG . EBV Seronegative - - - - Early Phase + - - - Acute Primary + +or- + - Infection Convalescence/Past - +or- + + Infection Reactivated +or- + + + Infection + Antibody Present - Antibody Absent PATIENT NOT FASTINGP ERFORMED BY: [employer] Hkwaze5939 [facility] [id number] Folate (26017)on 05-31-2017 Folate mass conc 5.9 ng/mL Normal Comprehe [facility] Internal Medicine Work Phone: Comment on above: A serum folate stephon ntration of less than 3.1 ng/mL isconsidered to represent clinical deficiency. PATIENT NOT FASTINGP ERFORMED BY: JORGE PushToTestUp Health System6370 [facility] [id number] Hemoglobin A1con 05-31-2017 Hemoglobin A1c/Hemoglobin.total mass fraction (Bld) 4.8 % Normal 4.8-5.6 Comprehensiv e Internal Medicine Work Phone: Comment on above: . Pre-diabetes: 5.7 - 6.4 Diabetes: >6.4 Glycemic control for adults with diabetes: <7.0 METABOLIC PANEL, COMPREHENSI DEVIN (27966)on 05-31-2017 Albumin mass conc 4.9 g/dL Normal 3.5-5.5 Compreh [facility] Internal Medicine Work Phone: Comment on above: PATIENT NOT FASTINGP ERFORMED BY: [place] [id number] [facility] [id number] Albumin/Globulin mass ratio 2.0 {ratio} Normal 1.2-2.2 [facility] Work Phone: Comment on above: PATIENT NOT FASTINGP ERFORMED BY: BrandinUp Health System6370 [facility] [id number] ALP enzyme act/vol 78 [iU]/L Normal 39-117 Compre [facility] Internal Medicine Work Phone: Comment on above: PATIENT NOT FASTINGP ERFORMED BY: [place] [address]1670 [facility] [id number] ALT enzyme act/vol 13 [iU]/L Normal 0-32 Compre [facility] Internal Medicine Work Phone: Comment on above: PATIENT NOT FASTINGP ERFORMED BY: [place] [address]1670 [facility] [id number] AST enzyme act/vol 14 [iU]/L Normal 0-[address] [facility] Internal Medicine Work Phone: Comment on above: PATIENT NOT FASTINGP ERFORMED BY: JORGE [facility] Ikfdps9545 Steven RoadDublin [place] [id number] Bilirubin mass conc mg/dL Normal 0.0-1.2 Compr ehensive Internal Medicine Work Phone: Comment on above: PATIENT NOT FASTINGP ERFORMED BY: JORGE [facility] Zuejpj4393 Steven RoadDublin [place] [id number] Calcium mass conc 9.9 mg/dL Normal 8.7-10.2 Compreh ensive Internal Medicine Work Phone: Comment on above: PATIENT NOT FASTINGP ERFORMED BY: JORGE [facility] Hefcop1882 Steven RoadDublin [place] [id number] Chloride molar conc 106 mmol/L Normal 96-106 Compr ensive Internal Medicine Work Phone: Comment on above: PATIENT NOT FASTINGP ERFORMED BY: JORGE [facility] Yfdjyf5119 Steven RoadDublin [place] [id number] CO2 molar conc 21 mmol/L Normal 18-29 [facility] Medicine Work Phone: Comment on above: PATIENT NOT FASTINGP ERFORMED BY: JORGE [facility] Zvsspn3276 Steven RoadDublin [place] [id number] Creatinine mass conc 0.78 mg/dL Normal 0.57-1.00 Comp [facility] Work Phone: Comment on above: PATIENT NOT FASTINGP ERFORMED BY: JORGE [facility] Poresi7985 Steven RoadDublin [place] [id number] GFR/1.73 sq M predicted among blacks CKD-EPI vol rate/area (S/P/Bld) 120 mL/min/1.73 Normal [facility] Work Phone: Comment on above: PATIENT NOT FASTINGP ERFORMED BY: JORGE [facility] Yohffm3193 Steven RoadDublin [place] [id number] GFR/1.73 sq M predicted among non-blacks CKD-EPI vol rate/area (S/P/Bld) 104 mL/min/1.73 Normal Comprehensiv e Internal Medicine Work Phone: Comment on above: PATIENT NOT FASTINGP ERFORMED BY: JORGE Granger6370 [facility] [id number] Globulin Calculated mass conc (S) 2.4 g/dL Normal 1.5-4.5 [facility] Work Phone: Glucose mass conc 109 mg/dL Abnormal 65-99 Compreh ensive Internal Medicine Work Phone: Comment on above: PATIENT NOT FASTINGP ERFORMED BY: JORGE Granger6370 [facility] [id number] Potassium molar conc 3.7 mmol/L Normal 3.5-5.2 Comp rehensive Internal Medicine Work Phone: Comment on above: PATIENT NOT FASTINGP ERFORMED BY: JORGE Granger6370 [facility] [id number] Protein mass conc 7.3 g/dL Normal 6.0-8.5 Compreh ensive Internal Medicine Work Phone: Comment on above: PATIENT NOT FASTINGP ERFORMED BY: JORGE Storeylin6370 [facility] [id number] Sodium molar conc 141 mmol/L Normal 134-144 Compreh ensive Internal Medicine Work Phone: Comment on above: PATIENT NOT FASTINGP ERFORMED BY: JORGE Granger6370 [facility] [id number] Urea nitrogen mass conc 18 mg/dL Normal 6-20 [facility] Work Phone: Comment on above: PATIENT NOT FASTINGP ERFORMED BY: JORGE Briones Dwyyzp4771 [facility] [id number] Urea nitrogen/Creatinine mass ratio 23 mg/mg Normal 9-23 [facility] Work Phone: Comment on above: PATIENT NOT FASTINGP ERFORMED BY: JORGE Briones Zyyctw5045 [facility] [id number] METABOLIC PANEL, COMPREHENSI VE (26508)Ordered By: Student Financial Services Counselor on 05-31-2017 ALP [Catalytic activity/Vol] 78 U/L Normal 39-117 [facility]; [facility] Work Phone: Comment on above: PATIENT NOT FASTINGP ERFORMED BY: JORGE [facility] Raovvo8459 [address] RoadDublin [place] [id number] ALT [Catalytic activity/Vol] 13 U/L Normal 0-32 [facility]; [facility] Work Phone: Comment on above: PATIENT NOT FASTINGP ERFORMED BY: JORGE LabCoadri StoreyRdsfpf8377 Steven RoadDublin [place] [id number] AST [Catalytic activity/Vol] 14 U/L Normal 0-40 [facility]; [facility] Work Phone: Comment on above: PATIENT NOT FASTINGP ERFORMED BY: CB [facility] Smqvvj3463 Steven RoadDublin [place] [id number] Bilirubin [Mass/Vol] mg/dL Normal 0.0-1.2 Comp [facility]; [facility] Work Phone: Comment on above: PATIENT NOT FASTINGP ERFORMED BY: JORGE Storeylin6370 Steven RoadDublin [place] [id number] Globulin mass conc (S) 2.4 g/dL Normal 1.5-4.[address] [facility] Internal Medicine Work Phone: Comment on above: PATIENT NOT FASTINGP ERFORMED BY: JORGE Storeylin6370 [address] RoadDublin [place] [id number] RHEUMATOID FACTOR-QUANT (864 31)on 05-31-2017 Rheumatoid factor Qn [IU]/mL Normal 0.0-13.9 [facility] Work Phone: Comment on above: PATIENT NOT FASTINGP ERFORMED BY: CB [facility] Szawtn4723 Steven RoadDublin [place] [id number] RHEUMATOID FACTOR-QUANT (864 31)Ordered By: Student Financial Services Counselor on 05-31-2017 Rheumatoid factor Qn [IU]/mL Normal 0.0-13.9 [facility]; [facility] Work Phone: Comment on above: PATIENT NOT FASTINGP ERFORMED BY: JORGE [facility] Xlekww4356 Steven RoadDublin [place] [id number] SED RATE ERYTHROCYTE (10818) on 05-31-2017 ESR Velocity (Bld) 13 mm/h Normal 0-32 Compre hensive Internal Medicine Work Phone: Comment on above: PATIENT NOT FASTINGP ERFORMED BY: JORGE [facility] Yoiihk4775 Steven RoadDublin [place] [id number] TSH (36552)on 05-31-2017 Thyrotropin Qn 2.320 {uIU/mL} Normal 0.450-4.50 0 [facility] Work Phone: Comment on above: PATIENT NOT FASTINGP ERFORMED BY: CB [facility] Yyznih7451 [address] RoadDublin [place] [id number] VITAMIN B-12 (CYANOCOBALAMIN ) (12027)on 05-31-2017 Cobalamin (Vitamin B12) mass conc 556 pg/mL Normal 232-1245 [facility] Work Phone: Comment on above: PATIENT NOT FASTINGP ERFORMED BY: CB [facility] Aynbmh5062 Steven RoadDublin [place] [id number] Written Authorizationon 05-04 Written Authorization WAR Normal Com prehensive Internal Medicine Work Phone: Comment on above: Written Authorizatio n Received.Authorization received from HIRA MTZ RN 28-12-0465Ppgjpi by Skylar Calle Basic Panelon 12-17-2016 Creatinine 0.68 mg/dL Normal 0.51-0.95 [facility] Comment on above: Performed By: #### P 8 ####[facility] [place] [address] Anion gap 11 mmol/L Normal 8-16 [facility] Comment on above: Performed By: #### P 8 ####[facility]1 [place], [place] [address] Calcium 8.4 mg/dL Low 8.5-10.1 [facility] Comment on above: Performed By: #### P 8 ####[facility] [place], [place] [address] CO2 20 mmol/L Low 21-32 [facility] Comment on above: Performed By: #### P 8 ####[address], [place] [address] Glucose mass conc 84 mg/dL Normal 70-99 [facility] Comment on above: Performed By: #### P 8 ####[facility] [place], [place] [address] Urea nitrogen 10 mg/dL Normal 7-18 [facility] Comment on above: Performed By: #### P 8 ####[facility] [place], [place] [address] Chloride 113 mmol/L High 98-107 [facility] Comment on above: Performed By: #### P 8 ####[address] [address] Potassium molar conc 3.4 mmol/L Low 3.5-5.1 [facility] Comment on above: Performed By: #### P 8 ####[address] [address] Sodium 141 mmol/L Normal 136-145 [facility] Comment on above: Performed By: #### P 8 ####[address] [address] Hemogram/Diffon 12-17-2016 Basophils Auto #/vol (Bld) 0.04 thou/cmm Normal 0.01-0.08 [facility] Comment on above: Performed By: #### C BCD1 ####[address] [address] Basophils/100 WBC Auto (Bld) 0.4 % Normal [facility] Comment on above: Performed By: #### C BCD1 ####[address] [address] Eosinophils 0.06 thou/cmm Normal 0.00-0.31 [facility] Comment on above: Performed By: #### C BCD1 ####[address] [address] Eosinophils/100 leukocytes 0.6 % Normal [facility] Comment on above: Performed By: #### C BCD1 ####[address] [address] Erythrocyte distribution width Auto Ratio (RBC) 13.5 % Normal 11.7-14.4 [facility] Comment on above: Performed By: #### C BCD1 ####[place] [address] Erythrocytes (RBC) 4.01 mil/cmm Normal 3.93-5.22 [facility] Comment on above: Performed By: #### C BCD1 ####[place] [address] Hematocrit (HCT) 32.7 % Low 34.1-44.9 [facility] Comment on above: Performed By: #### C BCD1 ####[place] [address] Hemoglobin mass conc (Bld) 10.8 g/dL Low 11.2-15.7 [facility] Comment on above: Performed By: #### C BCD1 ####[place] [address] Immature Grans 0.50 % Normal [facility] Comment on above: Performed By: #### C BCD1 ####[place] [address] Immature Grans # 0.05 thou/cmm Normal 0.00-0.05 [facility] Comment on above: Performed By: #### C BCD1 ####[place] [address] Lymphocytes 1.15 thou/cmm Low 1.18-3.74 [facility] Comment on above: Performed By: #### C BCD1 ####[place] [address] Lymphocytes/100 leukocytes 10.8 % Normal [facility] Comment on above: Performed By: #### C BCD1 ####[place] [address] MCH 26.9 pg Normal 25.6-32.2 [facility] Comment on above: Performed By: #### C BCD1 ####[place] [address] MCHC mass conc (RBC) 33.0 % Normal 31.6-34.8 [facility] Comment on above: Performed By: #### C BCD1 ####[facility] [place], [place] [address] MCV 81.5 fL Normal 79.4-94.8 [facility] Comment on above: Performed By: #### C BCD1 ####[facility] [place], [place] [address] Monocytes 0.65 thou/cmm Normal 0.27-0.70 [facility] Comment on above: Performed By: #### C BCD1 ####[address] [address] Monocytes/100 leukocytes 6.1 % Normal [facility] Comment on above: Performed By: #### C BCD1 ####[address] [address] Platelet mean volume (PMV) 9.2 fL Low 9.4-12.3 [facility] Comment on above: Performed By: #### C BCD1 ####[address] [address] Platelets 256 thou/cmm Normal 182-369 [facility] Comment on above: Performed By: #### C BCD1 ####[address] [address] RDW SD 40.1 fl Normal 36.4-46.3 [facility] Comment on above: Performed By: #### C BCD1 ####[address] [address] Seg Neutrophil 81.6 % Normal [facility] Comment on above: Performed By: #### C BCD1 ####[address] [address] Seg. Neut.# 8.72 thou/cmm High 1.56-6.13 [facility] Comment on above: Performed By: #### C BCD1 ####[address] [address] WBC (Leukocytes) 10.69 thou/cmm High 3.98-10.04 [facility] Comment on above: Performed By: #### C BCD1 ####[address] [address] MDRD GFRon 12-17-2016 eGFR (non-black) mL/min/{1.73_m2} Normal >60mL/m in/ 1.73m2 [facility] Comment on above: Result Comment: If t he patient is , multiply the result by 1.210. Performed By: #### G FR ####[address] [address] Magnesium Bloodon 12-17-2016 Magnesium 1.9 mg/dL Normal 1.6-2.6 [facility] Comment on above: Performed By: #### M AG ####[address] [address] Phosphorus Bloodon 7 Phosphate 1.9 mg/dL Critically low 2.5-4.9 [facility] Comment on above: Result Comment: RESU LT RECHECKED Performed By: #### P HOS ####[address] [address] Urinalysis Routineon 017 Bilirubin Urine see below Abnormal Negative [facility] Comment on above: Result Comment: Dete cted (Unable to confirm). Performed By: #### U RIN2 ####[address] [address] Hemoglobin,Urine Negative Normal Negative [facility] Comment on above: Performed By: #### U RIN2 ####[address] [address] Ketone Urine 40 mg/dL Abnormal Negative [facility] Comment on above: Performed By: #### U RIN2 ####[address] [address] Nitrites Urine Negative Normal Negative [facility] Comment on above: Performed By: #### U RIN2 ####[address] [address] Protein Urine TRACE Abnormal Negative [facility] Comment on above: Performed By: #### U RIN2 ####[place] [address] Specific [place], Ur 1.023 Normal 1.005-1 .03 0 [facility] Comment on above: Performed By: #### U RIN2 ####[place] [address] Urine, appearance CLEAR Normal [facility] Comment on above: Performed By: #### U RIN2 ####[place] [address] Urine, color YELLOW Normal [facility] Comment on above: Performed By: #### U RIN2 ####[place] [address] Urine, glucose presence Negative Normal Negative [facility] Comment on above: Performed By: #### U RIN2 ####[place] [address] Urine, pH 6.0 [pH] Normal 5.0-8.0 [facility] Comment on above: Performed By: #### U RIN2 ####[place] [address] Urobilinogen,Ur 0.2 EU/dL Normal 0.0-1.0 [facility] Comment on above: Performed By: #### U RIN2 ####[place] [address] WBC (Leukocytes) Negative Normal Negative [facility] Comment on above: Performed By: #### U RIN2 ####[place] [address] Ep Cells Urine 1.7 /hpf Normal 0.0-5.0 [facility] Comment on above: Performed By: #### U RIN2 ####[place] [address] Hyaline Cast 0.7 /lpf Normal 0.0-1.0 [facility] Comment on above: Performed By: #### U RIN2 ####[place] [address] Urine, bacteria in sediment NONE Normal None [facility] Comment on above: Performed By: #### U RIN2 ####[address] [address] Urine, erythrocytes in sediment by area 2.1 /[HPF] Normal 0.0-5.0 [facility] Comment on above: Performed By: #### U RIN2 ####[address] [address] Urine, leukocytes in sedmiment 1.5 /[HPF] Normal 0.0-5.0 [facility] Comment on above: Performed By: #### U RIN2 ####[address] [address] Urine HCG, Qual.on 7 HCG.beta subunit ( test) Ql (U) Negative Normal Negative [facility] Comment on above: Performed By: #### H CGUR ####[address] [address] Specific [place], Ur 1.023 Normal 1.005-1 .03 0 [facility] Comment on above: Performed By: #### H CGUR ####[address] [address] PPD ([id number])Ordered By: Uri De La Garza on 03-04-2016 PPD ([id number]) 0 mm Normal [facility] Work Phone: Comment on above: Lot:[id number]:08/17Do se:0.1Route:idSite:agustin Calderon By:LOCO signed Urinalysis, Office ([id number])Or dered By: Prerna De La Garza on [...] Relative Density (U) 1.020 1 Normal [facility] Work Phone: Urobilinogen mass/time (24H U) Normal Normal [facility] Work Phone: Bedside Glucoseon 11-11-2015 BEDSIDE GLU 99 mg/dL Normal 70-110 [facility] Work Phone: Comment on above: Policy and Physician s Orders followedMANAGEMENT OF PATIENT CARE PER NURSING PROTOCOL Bedside Glucose 99 mg/dL Normal 70-110 [facility] Work Phone: Comment on above: Policy and Physician s Orders followedMANAGEMENT OF PATIENT CARE PER NURSING PROTOCOL Protein Electro, Random Urin anna marie 05-31-2015 Albumin/Protein.total Elph mass fraction (U) 59.4 % Normal [facility] Work Phone: Alpha 1 globulin/Protein.total Elph mass fraction (U) 3.3 % [facility] Work Phone: Alpha 2 globulin/Protein.total Elph mass fraction (U) 8.4 % Normal [facility] Work Phone: Beta globulin/Protein.total Elph mass fraction (U) 18.5 % Normal [facility] Work Phone: Gamma globulin/Protein.total Elph mass fraction (U) 10.5 % Normal [facility] Work Phone: Protein mass conc (U) 15.3 mg/dL Abnormal 0.0-15.0 [facility] Work Phone: Protein.monoclonal/Pro tein.total Elph mass fraction (U) Not Observed Normal [facility] Work Phone: Protein Electro.,Son 016 Albumin mass conc 4.7 g/dL Normal 3.2-5.6 [facility] Work Phone: Albumin/Globulin mass ratio 1.8 {ratio} Normal 0.7-2.0 [facility] Work Phone: Alpha 1 globulin Elph mass conc 0.2 g/dL Normal 0.1-0.4 [facility] Work Phone: Alpha 2 globulin Elph mass conc 0.6 g/dL Normal 0.4-1.2 [facility] Work Phone: Beta globulin Elph mass conc 0.9 g/dL Normal 0.6-1.3 [facility] Work Phone: Gamma globulin Elph mass conc 0.9 g/dL Normal 0.5-1.6 [facility] Work Phone: Globulin Calculated mass [...] Time Vital Sign Value Performing Clinician Facility 02-05-2025 10:35-0400 Body height 160.[address] Leander Patel MD Work Phone: [facility] 02-05-2025 10:35-0400 Body mass index (BMI) [Ratio] 28 kg/m2 Dr. Leander Patel MD Work Phone: [facility] 02-05-2025 10:35-0400 Body temperature 98.6 [degF] Dr. Leander Patel MD Work Phone: [facility] 02-05-2025 10:35-0400 Body weight 71.[address] Leander Patel MD Work Phone: [facility] 02-05-2025 10:35-0400 Diastolic blood pressure 67 mm[Hg] Dr. Leander Patel MD Work Phone: [facility] 02-05-2025 10:35-0400 Heart rate 94 /min Dr. Leander Patel MD Work Phone: [facility] 02-05-2025 10:35-0400 Respiratory rate 16 /min Dr. Leander Patel MD Work Phone: [facility] 02-05-2025 10:35-0400 SaO2% (BldA) [Mass fraction] 98 % Dr. Leander Patel MD Work Phone: [facility] 02-05-2025 10:35-0400 Systolic blood pressure 121 mm[Hg] Dr. Leander Patel MD Work Phone: [facility] 01-27-2025 19:55-0400 Body temperature 98.1 [degF] Dr. Leander Patel MD Work Phone: [facility] 01-27-2025 19:55-0400 Diastolic blood pressure 59 mm[Hg] Dr. Leander Patel MD Work Phone: [facility] 01-27-2025 19:55-0400 Heart rate 85 /min Dr. Leander Patel MD Work Phone: [facility] 01-27-2025 19:55-0400 Respiratory rate 16 /min Dr. Leander Patel MD Work Phone: [facility] 01-27-2025 19:55-0400 SaO2% (BldA) [Mass fraction] 100 % Dr. Leander Patel MD Work Phone: [facility] 01-27-2025 19:55-0400 Systolic blood pressure 103 mm[Hg] Dr. Leander Patel MD Work Phone: [facility] 01-27-2025 17:49-0400 Body mass index (BMI) [Ratio] 27.4 kg/m2 Dr. Leander Patel MD Work Phone: [facility] 01-27-2025 17:49-0400 Body weight 70.[address] Leander Patel MD Work Phone: [facility] 01-27-2025 14:09-0400 Body height 160.[address] Leander Patel MD Work Phone: [facility] 01-11-2025 13:59-0400 Body height 160.[address] Leander Patel MD Work Phone: [facility] 01-11-2025 13:59-0400 Body mass index (BMI) [Ratio] 27.8 kg/m2 Dr. Leander Patel MD Work Phone: [facility] 01-11-2025 13:59-0400 Body temperature 97.6 [degF] Dr. Leander Patel MD Work Phone: [facility] 01-11-2025 13:59-0400 Body weight 71.[address] Leander Patel MD Work Phone: [facility] 01-11-2025 13:59-0400 Diastolic blood pressure 62 mm[Hg] Dr. Leander Patel MD Work Phone: [facility] 01-11-2025 13:59-0400 Heart rate 96 /min Dr. Leander Patel MD Work Phone: [facility] 01-11-2025 13:59-0400 Respiratory rate 16 /min Dr. Leander Patel MD Work Phone: [facility] 01-11-2025 13:59-0400 SaO2% (BldA) [Mass fraction] 97 % Dr. Leander Patel MD Work Phone: [facility] 01-11-2025 13:59-0400 Systolic blood pressure 108 mm[Hg] Dr. Leander Patel MD Work Phone: [facility] 12-11-2024 09:58-0400 Body height 160.[address] Leander Patel MD Work Phone: [facility] 12-11-2024 09:58-0400 Body mass index (BMI) [Ratio] 27.8 kg/m2 Dr. Leander Patel MD Work Phone: [facility] 12-11-2024 09:58-0400 Body temperature 98.6 [degF] Dr. Leander Patel MD Work Phone: [facility] 12-11-2024 09:58-0400 Body weight 71.[address] Leander Patel MD Work Phone: [facility] 12-11-2024 09:58-0400 Diastolic blood pressure 82 mm[Hg] Dr. Leander Patel MD Work Phone: [facility] 12-11-2024 09:58-0400 Heart rate 96 /min Dr. Leander Patel MD Work Phone: [facility] 12-11-2024 09:58-0400 Respiratory rate 15 /min Dr. Leander Patel MD Work Phone: [facility] 12-11-2024 09:58-0400 SaO2% (BldA) [Mass fraction] 97 % Dr. Leander Patel MD Work Phone: [facility] 12-11-2024 09:58-0400 Systolic blood pressure 116 mm[Hg] Dr. Leander Patel MD Work Phone: [facility] 11-07-2024 08:17-0400 Body height 160.[address] Donna Perdomo MD Work Phone: [facility] 11-07-2024 08:17-0400 Body mass index (BMI) [Ratio] 27.4 kg/m2 Dr. Donna Perdomo MD Work Phone: [facility] 11-07-2024 08:17-0400 Body temperature 98.4 [degF] Dr. Donna Perdomo MD Work Phone: [facility] 11-07-2024 08:17-0400 Body weight 70.[address] Donna Perdomo MD Work Phone: [facility] 11-07-2024 08:17-0400 Diastolic blood pressure 78 mm[Hg] Dr. Donna Perdomo MD Work Phone: [facility] 11-07-2024 08:17-0400 Heart rate 95 /min Dr. Donna Perdomo MD Work Phone: [facility] 11-07-2024 08:17-0400 Respiratory rate 15 /min Dr. Donna Perdomo MD Work Phone: [facility] 11-07-2024 08:17-0400 SaO2% (BldA) [Mass fraction] 99 % Dr. Donna Perdomo MD Work Phone: [facility] 11-07-2024 08:17-0400 Systolic blood pressure 112 mm[Hg] Dr. Donna Perdomo MD Work Phone: [facility] 11-04-2024 18:02-0400 Body temperature 98 [degF] Dr. Donna Perdomo MD Work Phone: [facility] 11-04-2024 18:02-0400 Diastolic blood pressure 78 mm[Hg] Dr. Donna Perdomo MD Work Phone: [facility] 11-04-2024 18:02-0400 Heart rate 112 /min Dr. Donna Perdomo MD Work Phone: [facility] 11-04-2024 18:02-0400 Respiratory rate 20 /min Dr. Donna Perdomo MD Work Phone: [facility] 11-04-2024 18:02-0400 SaO2% (BldA) [Mass fraction] 99 % Dr. Donna Perdomo MD Work Phone: [facility] 11-04-2024 18:02-0400 Systolic blood pressure 120 mm[Hg] Dr. Donna Perdomo MD Work Phone: [facility] 11-04-2024 14:05-0400 Body height 160.[address] Donna Perdomo MD Work Phone: [facility] 11-02-2024 14:15-0400 Body height 160.[address] Donna Perdomo MD Work Phone: [facility] 11-02-2024 14:15-0400 Body mass index (BMI) [Ratio] 27.8 kg/m2 Dr. Donna Perdomo MD Work Phone: [facility] 11-02-2024 14:15-0400 Body temperature 97.4 [degF] Dr. Donna Perdomo MD Work Phone: [facility] 11-02-2024 14:15-0400 Body weight 71.[address] Donna Perdomo MD Work Phone: [facility] 11-02-2024 14:15-0400 Diastolic blood pressure 70 mm[Hg] Dr. Donna Perdomo MD Work Phone: [facility] 11-02-2024 14:15-0400 Heart rate 97 /min Dr. Donna Perdomo MD Work Phone: [facility] 11-02-2024 14:15-0400 Respiratory rate 16 /min Dr. Donna Perdomo MD Work Phone: [facility] 11-02-2024 14:15-0400 SaO2% (BldA) [Mass fraction] 97 % Dr. Donna Perdomo MD Work Phone: [facility] 11-02-2024 14:15-0400 Systolic blood pressure 122 mm[Hg] Dr. Donna Perdomo MD Work Phone: [facility] 10-13-2024 14:55-0400 Body height 160.[address] Donna Perdomo MD Work Phone: [facility] 10-13-2024 14:55-0400 Body mass index (BMI) [Ratio] 27.6 kg/m2 Dr. Donna Perdomo MD Work Phone: [facility] 10-13-2024 14:55-0400 Body temperature 97.8 [degF] Dr. Donna Perdomo MD Work Phone: [facility] 10-13-2024 14:55-0400 Body weight 70.[address] Donna Perdomo MD Work Phone: [facility] 10-13-2024 14:55-0400 Diastolic blood pressure 62 mm[Hg] Dr. Donna Perdomo MD Work Phone: [facility] 10-13-2024 14:55-0400 Heart rate 104 /min Dr. Donna Perdomo MD Work Phone: [facility] 10-13-2024 14:55-0400 Respiratory rate 18 /min Dr. Donna Perdomo MD Work Phone: [facility] 10-13-2024 14:55-0400 SaO2% (BldA) [Mass fraction] 97 % Dr. Donna Perdomo MD Work Phone: [facility] 10-13-2024 14:55-0400 Systolic blood pressure 118 mm[Hg] Dr. Donna Perdomo MD Work Phone: [facility] 10-06-2024 23:25-0400 SaO2% (BldA) [Mass fraction] 99 % [facility] Comment on above: Order Comment: Specimen Type: ARTERIAL B LOOD SPECIMENOrdering Facility: [facility] Address: [address] [place] [address] Performed By: #### A LLBG ####[facility]ORY[facility] [id number] [place] [address] [place] 10-06-2024 21:10-0400 Diastolic blood pressure 85 mm[Hg] Dr. Donna Perdomo MD Work Phone: [facility] 10-06-2024 21:10-0400 Heart rate 116 /min Dr. Donna Perdomo MD Work Phone: [facility] 10-06-2024 21:10-0400 Respiratory rate 16 /min Dr. Donna Perdomo MD Work Phone: [facility] 10-06-2024 21:10-0400 SaO2% (BldA) [Mass fraction] 99 % Dr. Donna Perdomo MD Work Phone: [facility] 10-06-2024 21:10-0400 Systolic blood pressure 128 mm[Hg] Dr. Dnona Perdomo MD Work Phone: [facility] 10-06-2024 21:03-0400 Inhaled oxygen concentration 25 % Dr. Donna Perdomo MD Work Phone: [facility] 10-06-2024 20:29-0400 Body temperature 98.2 [degF] Dr. Donna Perdomo MD Work Phone: [facility] 10-06-2024 20:12-0400 Inhaled oxygen concentration 30 % Dr. Donna Perdomo MD Work Phone: [facility] 10-06-2024 13:41-0400 Body height 152.[address] Donna Perdomo MD Work Phone: [facility] 10-06-2024 13:41-0400 Body mass index (BMI) [Ratio] 31.6 kg/m2 Dr. Donna Perdomo MD Work Phone: [facility] 10-06-2024 13:41-0400 Body weight 73.[address] Donna Perdomo MD Work Phone: [facility] 08-18-2024 14:38-0400 Body temperature 98.1 [degF] Dr. Donna Perdomo MD Work Phone: [facility] 08-18-2024 14:38-0400 Diastolic blood pressure 79 mm[Hg] Dr. Donna Perdomo MD Work Phone: [facility] 08-18-2024 14:38-0400 Heart rate 77 /min Dr. Donna Perdomo MD Work Phone: [facility] 08-18-2024 14:38-0400 Respiratory rate 19 /min Dr. Donna Perdomo MD Work Phone: [facility] 08-18-2024 14:38-0400 SaO2% (BldA) [Mass fraction] 99 % Dr. Donna Perdomo MD Work Phone: [facility] 08-18-2024 14:38-0400 Systolic blood pressure 107 mm[Hg] Dr. Donna Perdomo MD Work Phone: [facility] 08-18-2024 11:44-0400 Body height 157.[address] Donna Perdomo MD Work Phone: [facility] 08-18-2024 11:44-0400 Body mass index (BMI) [Ratio] 29.5 kg/m2 Dr. Donna Perdomo MD Work Phone: [facility] 08-18-2024 11:44-0400 Body weight 73.[address] Donna Perdomo MD Work Phone: [facility] 07-26-2024 14:04-0400 Body height 157.[address] Donna Perdomo MD Work Phone: [facility] 07-26-2024 14:04-0400 Body mass index (BMI) [Ratio] 29 kg/m2 Dr. Donna Perdomo MD Work Phone: [facility] 07-26-2024 14:04-0400 Body temperature 98.5 [degF] Dr. Donna Perdomo MD Work Phone: [facility] 07-26-2024 14:04-0400 Body weight 72.[address] Donna Perdomo MD Work Phone: [facility] 07-26-2024 14:04-0400 Diastolic blood pressure 68 mm[Hg] Dr. Donna Perdomo MD Work Phone: [facility] 07-26-2024 14:04-0400 Heart rate 97 /min Dr. Donna Perdomo MD Work Phone: [facility] 07-26-2024 14:04-0400 Respiratory rate 16 /min Dr. Donna Perdomo MD Work Phone: [facility] 07-26-2024 14:04-0400 SaO2% (BldA) [Mass fraction] 97 % Dr. Donna Perdomo MD Work Phone: [facility] 07-26-2024 14:04-0400 Systolic blood pressure 114 mm[Hg] Dr. Donna Perdomo MD Work Phone: [facility] 07-06-2024 08:32-0500 Body mass index (BMI) [Ratio] 29.3 kg/m2 Dr. Donna Perdomo MD Work Phone: [facility] 07-06-2024 08:32-0500 Body temperature 98.6 [degF] Dr. Donna Perdomo MD Work Phone: [facility] 07-06-2024 08:32-0500 Body weight 72.[address] Donna Perdomo MD Work Phone: [facility] 07-06-2024 08:32-0500 Diastolic blood pressure 68 mm[Hg] Dr. Donna Perdomo MD Work Phone: [facility] 07-06-2024 08:32-0500 Heart rate 100 /min Dr. Donna Perdomo MD Work Phone: [facility] 07-06-2024 08:32-0500 Respiratory rate 17 /min Dr. Donna Perdomo MD Work Phone: [facility] 07-06-2024 08:32-0500 SaO2% (BldA) [Mass fraction] 97 % Dr. Donna Pedromo MD Work Phone: [facility] 07-06-2024 08:32-0500 Systolic blood pressure 110 mm[Hg] Dr. Donna Perdomo MD Work Phone: [facility] 04-12-2024 13:55-0500 Body mass index (BMI) [Ratio] 29.6 kg/m2 Dr. Donna Perdomo MD Work Phone: [facility] 04-12-2024 13:55-0500 Body temperature 98.6 [degF] Dr. Donna Perdomo MD Work Phone: [facility] 04-12-2024 13:55-0500 Body weight 73.[address] Donna Perdomo MD Work Phone: [facility] 04-12-2024 13:55-0500 Diastolic blood pressure 82 mm[Hg] Dr. Donna Perdomo MD Work Phone: [facility] 04-12-2024 13:55-0500 Heart rate 93 /min Dr. Donna Perdomo MD Work Phone: [facility] 04-12-2024 13:55-0500 Respiratory rate 16 /min Dr. Donna Perdomo MD Work Phone: [facility] 04-12-2024 13:55-0500 SaO2% (BldA) [Mass fraction] 97 % Dr. Donna Perdomo MD Work Phone: [facility] 04-12-2024 13:55-0500 Systolic blood pressure 114 mm[Hg] Dr. Donna Perdomo MD Work Phone: [facility] 10-11-2023 08:58-0400 Body mass index (BMI) [Ratio] 30.24 kg/m2 Maya Puente APRN.SUPERVISOR TYPESETTING Work Phone: [facility] 10-11-2023 08:58-0400 Body temperature 97.3 [degF] Maya Puente APRN.SUPERVISOR TYPESETTING Work Phone: [facility] 10-11-2023 08:58-0400 Body weight 75 kg Maya Puente APRN.SUPERVISOR TYPESETTING Work Phone: [facility] 10-11-2023 08:58-0400 Diastolic blood pressure 80 mm[Hg] Maya Puente APRN.SUPERVISOR TYPESETTING Work Phone: [facility] 10-11-2023 08:58-0400 Heart rate 102 /min Maya Puente APRN.SUPERVISOR TYPESETTING Work Phone: [facility] 10-11-2023 08:58-0400 Respiratory rate 16 /min Maya Puente MACHINERY MOVER.SUPERVISOR TYPESETTING Work Phone: [facility] 10-11-2023 08:58-0400 SaO2% (BldA) [Mass fraction] 98 % Maya Puente MACHINERY MOVER.SUPERVISOR TYPESETTING Work Phone: [facility] 10-11-2023 08:58-0400 Systolic blood pressure 120 mm[Hg] Maya Puente MACHINERY MOVER.SUPERVISOR TYPESETTING Work Phone: [facility] 08-12-2023 11:46-0400 Body mass index (BMI) [Ratio] 29.76 kg/m2 Talya Usher MACHINERY MOVER-SUPERVISOR TYPESETTING Work Phone: [facility] 08-12-2023 11:46-0400 Body temperature 97.9 [degF] Talya Usher MACHINERY MOVER-SUPERVISOR TYPESETTING Work Phone: [facility] 08-12-2023 11:46-0400 Body weight 76.2 kg Talya Usher MACHINERY MOVER-SUPERVISOR TYPESETTING Work Phone: [facility] 08-12-2023 11:46-0400 Diastolic blood pressure 72 mm[Hg] Talya Usher MACHINERY MOVER-SUPERVISOR TYPESETTING Work Phone: [facility] 08-12-2023 11:46-0400 Heart rate 87 /min Talya Usher MACHINERY MOVER-SUPERVISOR TYPESETTING Work Phone: [facility] 08-12-2023 11:46-0400 Systolic blood pressure 122 mm[Hg] Talya Usher MACHINERY MOVER-SUPERVISOR TYPESETTING Work Phone: [facility] 08-12-2023 09:20-0400 Body height 160 cm Renee Donald MACHINERY MOVER-SUPERVISOR TYPESETTING Work Phone: [facility] 08-12-2023 09:20-0400 Body mass index (BMI) [Ratio] 29.76 kg/m2 Renee Donald MACHINERY MOVER-SUPERVISOR TYPESETTING Work Phone: [facility] 08-12-2023 09:20-0400 Body temperature 97.7 [degF] Renee Donald MACHINERY MOVER-SUPERVISOR TYPESETTING Work Phone: [facility] 08-12-2023 09:20-0400 Body weight 76.2 kg Renee Donald MACHINERY MOVER-SUPERVISOR TYPESETTING Work Phone: [facility] 08-12-2023 09:20-0400 Diastolic blood pressure 62 mm[Hg] Renee Donald MACHINERY MOVER-SUPERVISOR TYPESETTING Work Phone: [facility] 08-12-2023 09:20-0400 Heart rate 104 /min Renee Donald MACHINERY MOVER-SUPERVISOR TYPESETTING Work Phone: [facility] 08-12-2023 09:20-0400 Systolic blood pressure 129 mm[Hg] Renee Donald MACHINERY MOVER-SUPERVISOR TYPESETTING Work Phone: [facility] 02-12-2023 11:30-0400 Diastolic blood pressure 87 mm[Hg] [address] 02-12-2023 11:30-0400 Heart rate 99 /min [address] 02-12-2023 11:30-0400 Respiratory rate 16 /min [facility]12 [facility] 02-12-2023 11:30-0400 Systolic blood pressure 116 mm[Hg] [facility] 02-12-2023 09:14-0400 Body temperature 97.9 [degF] [address] 02-12-2023 09:14-0400 SaO2% (BldA) [Mass fraction] 97 % [facility]12 [facility] 12-03-2022 14:27-0400 Body height 160 cm Renee Donald MACHINERY MOVER-SUPERVISOR TYPESETTING Work Phone: [facility] 12-03-2022 14:27-0400 Body mass index (BMI) [Ratio] 31.89 kg/m2 Renee Donald MACHINERY MOVER-SUPERVISOR TYPESETTING Work Phone: [facility] 12-03-2022 14:27-0400 Body temperature 97.3 [degF] Renee Dallasur MACHINERY MOVER-SUPERVISOR TYPESETTING Work Phone: [facility] 12-03-2022 14:27-0400 Body weight 81.65 kg Renee Dallasur MACHINERY MOVER-SUPERVISOR TYPESETTING Work Phone: [facility] 12-03-2022 14:27-0400 Diastolic blood pressure 83 mm[Hg] Renee Mauriceameur MACHINERY MOVER-SUPERVISOR TYPESETTING Work Phone: [facility] 12-03-2022 14:27-0400 Heart rate 104 /min Renee Donald MACHINERY MOVER-SUPERVISOR TYPESETTING Work Phone: [facility] 12-03-2022 14:27-0400 Systolic blood pressure 135 mm[Hg] Renee Burtur MACHINERY MOVER-SUPERVISOR TYPESETTING Work Phone: [facility] 11-13-2022 15:12-0400 Body height 160 cm Edgar Ayers MD Work Phone: [facility] Comment on above: verbal 11-13-2022 15:12-0400 Body mass index (BMI) [Ratio] 31.96 kg/m2 Edgar yAers MD Work Phone: [facility] 11-13-2022 15:12-0400 Body temperature 98.8 [degF] Edgar Ayers MD Work Phone: [facility] 11-13-2022 15:12-0400 Body weight 81.83 kg Edgar Ayers MD Work Phone: [facility] 11-13-2022 15:12-0400 Diastolic blood pressure 74 mm[Hg] Edgar Ayers MD Work Phone: [facility] 11-13-2022 15:12-0400 Heart rate 93 /min Edgar Ayers MD Work Phone: [facility] 11-13-2022 15:12-0400 Systolic blood pressure 121 mm[Hg] Edgar Ayers MD Work Phone: [facility] 11-02-2022 11:00-0400 Body temperature 98.1 [degF] Nancy Faith MD Work Phone: [facility] 11-02-2022 11:00-0400 Diastolic blood pressure 68 mm[Hg] Nancy Faith MD Work Phone: [facility] 11-02-2022 11:00-0400 Heart rate 81 /min Nancy Faith MD Work Phone: [facility] 11-02-2022 11:00-0400 Respiratory rate 16 /min Nancy Faith MD Work Phone: [facility] 11-02-2022 11:00-0400 SaO2% (BldA) [Mass fraction] 93 % Nancy Faith MD Work Phone: [facility] 11-02-2022 11:00-0400 Systolic blood pressure 105 mm[Hg] Nancy Faith MD Work Phone: [facility] 10-29-2022 23:00-0400 Body height 160 cm Nancy Faith MD Work Phone: [facility] 10-29-2022 23:00-0400 Body mass index (BMI) [Ratio] 31.48 kg/m2 Nancy Faith MD Work Phone: [facility] 10-29-2022 23:00-0400 Body weight 80.6 kg Nancy Faith MD Work Phone: [facility] 10-29-2022 20:00-0400 Body temperature 98.1 [degF] [facility] 10-29-2022 20:00-0400 Diastolic blood pressure 71 mm[Hg] [facility] 10-29-2022 20:00-0400 Heart rate 81 /min [facility] 10-29-2022 20:00-0400 Respiratory rate 22 /min [facility] 10-29-2022 20:00-0400 SaO2% (BldA) [Mass fraction] 96 % [facility] 10-29-2022 20:00-0400 Systolic blood pressure 99 mm[Hg] [facility] 10-29-2022 11:10-0400 Body height 160.02 cm [facility] 10-29-2022 11:10-0400 Body mass index (BMI) [Ratio] 32.9 kg/m2 [facility] 10-29-2022 11:10-0400 Body weight 84.3 kg [facility] 10-06-2022 10:41-0400 Body height 160 cm Pankaj Mejias MD Work Phone: [facility] 10-06-2022 10:41-0400 Body mass index (BMI) [Ratio] 31.5 kg/m2 Pankaj Mejias MD Work Phone: [facility] 10-06-2022 10:41-0400 Body weight 80.65 kg Pankaj Mejias MD Work Phone: [facility] 10-06-2022 10:41-0400 Diastolic blood pressure 80 mm[Hg] Pankaj Mejias MD Work Phone: [facility] 10-06-2022 10:41-0400 Heart rate 117 /min Pankaj Mejias MD Work Phone: [facility] 10-06-2022 10:41-0400 Systolic blood pressure 128 mm[Hg] Pankaj Ozuna Work Phone: [facility] 09-07-2022 18:06-0400 Diastolic blood pressure 79 mm[Hg] [facility] 09-07-2022 18:06-0400 Respiratory rate 18 /min [facility] 09-07-2022 18:06-0400 Systolic blood pressure 115 mm[Hg] [facility] 09-07-2022 16:42-0400 Body temperature 96.6 [degF] [facility] 09-07-2022 16:42-0400 Heart rate 78 /min [facility] 09-07-2022 16:42-0400 SaO2% (BldA) [Mass fraction] 98 % [facility] 09-07-2022 14:04-0400 Body height 160.02 cm [facility] 09-07-2022 14:04-0400 Body mass index (BMI) [Ratio] 30.4 kg/m2 [facility] 09-07-2022 14:04-0400 Body weight 78.01 kg [facility] 08-08-2022 13:00-0400 Diastolic blood pressure 73 mm[Hg] [facility] 08-08-2022 13:00-0400 Systolic blood pressure 107 mm[Hg] [facility] 08-08-2022 11:01-0400 Body height 160.02 cm [facility] 08-08-2022 11:01-0400 Body mass index (BMI) [Ratio] 31.9 kg/m2 [facility] 08-08-2022 11:01-0400 Body temperature 98.4 [degF] [facility] 08-08-2022 11:01-0400 Body weight 81.9 kg [facility] 08-08-2022 11:01-0400 Heart rate 115 /min [facility] 08-08-2022 11:01-0400 Respiratory rate 16 /min [facility] 08-08-2022 11:01-0400 SaO2% (BldA) [Mass fraction] 98 % [facility] 08-07-2022 05:27-0400 Body temperature 98.01 [degF] Rivka Voll DO Work Phone: [facility] [employer] 08-07-2022 05:27-0400 Diastolic blood pressure 75 mm[Hg] Rivka Voll DO Work Phone: [facility] [employer] 08-07-2022 05:27-0400 Heart rate 84 /min Rivka Voll DO Work Phone: [facility] [employer] 08-07-2022 05:27-0400 Respiratory rate 18 /min Rivka Voll DO Work Phone: [facility] [employer] 08-07-2022 05:27-0400 SaO2% (BldA) [Mass fraction] 96 % Rivka Voll DO Work Phone: [facility] [employer] 08-07-2022 05:27-0400 Systolic blood pressure 112 mm[Hg] Rivka Voll DO Work Phone: [facility] [employer] 08-05-2022 10:03-0400 Body height 157.5 cm Rivka Voll DO Work Phone: [facility] [employer] 08-05-2022 10:03-0400 Body mass index (BMI) [Ratio] 31.08 kg/m2 Rivka Voll DO Work Phone: [facility] [employer] 08-05-2022 10:03-0400 Body weight 77.1 kg Rivka Voll DO Work Phone: [facility] [employer] 07-30-2022 10:00-0400 Diastolic blood pressure 84 mm[Hg] Preti Sakshi SALGADO Work Phone: [facility] [employer] 07-30-2022 10:00-0400 Heart rate 71 /min Preti Sakshi SALGADO Work Phone: [employer] 07-30-2022 10:00-0400 Respiratory rate 21 /min Preti Sakshi SALGADO Work Phone: [facility] [employer] 07-30-2022 10:00-0400 SaO2% (BldA) [Mass fraction] 100 % Preti Sakshi SALGADO Work Phone: [facility] [employer] 07-30-2022 10:00-0400 Systolic blood pressure 123 mm[Hg] Pretvishal Cantor MD Work Phone: [facility] 07-30-2022 07:09-0400 Body height 157.5 cm Pretvishal Cantor MD Work Phone: [facility] 07-30-2022 07:09-0400 Body mass index (BMI) [Ratio] 31.05 kg/m2 Pretvishal Cantor MD Work Phone: [facility] 07-30-2022 07:09-0400 Body temperature 97.3 [degF] Pretvishal Cantor MD Work Phone: [facility] 07-30-2022 07:09-0400 Body weight 77 kg Pretvishal Cantor MD Work Phone: [facility] 07-17-2022 18:59-0400 Diastolic blood pressure 71 mm[Hg] [facility] 07-17-2022 18:59-0400 Heart rate 78 /min [facility] 07-17-2022 18:59-0400 Respiratory rate 16 /min [facility] 07-17-2022 18:59-0400 SaO2% (BldA) [Mass fraction] 98 % [facility] 07-17-2022 18:59-0400 Systolic blood pressure 114 mm[Hg] [facility] 07-17-2022 14:24-0400 Body height 157.48 cm [facility] 07-17-2022 14:24-0400 Body mass index (BMI) [Ratio] 31.6 kg/m2 [facility] 07-17-2022 14:24-0400 Body temperature 98 [degF] [facility] 07-17-2022 14:24-0400 Body weight 78.52 kg [facility] 07-12-2022 11:04-0400 Body temperature 98.1 [degF] Luis TAYLOR Work Phone: [facility] 07-12-2022 11:04-0400 Body weight 78.74 kg Luis TAYLOR Work Phone: [facility] 07-12-2022 11:04-0400 Diastolic blood pressure 76 mm[Hg] Krislyn Aberegg PA Work Phone: [facility] 07-12-2022 11:04-0400 Heart rate 125 /min Krislyn Aberegg PA Work Phone: [facility] 07-12-2022 11:04-0400 Respiratory rate 21 /min Krislyn Aberegg PA Work Phone: [facility] 07-12-2022 11:04-0400 SaO2% (BldA) [Mass fraction] 97 % Krislyn Aberegg PA Work Phone: [facility] 07-12-2022 11:04-0400 Systolic blood pressure 98 mm[Hg] Krislyn Aberegg PA Work Phone: [facility] 05-27-2022 13:15-0500 Diastolic blood pressure 66 mm[Hg] [facility] 05-27-2022 13:15-0500 Heart rate 74 /min [facility] 05-27-2022 13:15-0500 Respiratory rate 15 /min [facility] 05-27-2022 13:15-0500 SaO2% (BldA) [Mass fraction] 99 % [facility] 05-27-2022 13:15-0500 Systolic blood pressure 103 mm[Hg] [facility] 05-27-2022 10:30-0500 Body height 157.48 cm [facility] 05-27-2022 10:30-0500 Body mass index (BMI) [Ratio] 34.3 kg/m2 [facility] 05-27-2022 10:30-0500 Body temperature 96.4 [degF] [facility] 05-27-2022 10:30-0500 Body weight 85.1 kg [facility] 04-29-2022 08:39-0500 Body weight 76.57 kg Sarah Pop MD Work Phone: [facility] 04-29-2022 08:39-0500 Diastolic blood pressure 80 mm[Hg] Sarah Pop MD Work Phone: [facility] 04-29-2022 08:39-0500 Systolic blood pressure 128 mm[Hg] aSrah Pop MD Work Phone: [facility] 04-08-2022 13:35-0500 Diastolic blood pressure 53 mm[Hg] Angelita Ho MD Work Phone: [facility] 04-08-2022 13:35-0500 Heart rate 93 /min Angelita Ho MD Work Phone: [facility] 04-08-2022 13:35-0500 Respiratory rate 16 /min Angelita Ho MD Work Phone: [facility] 04-08-2022 13:35-0500 SaO2% (BldA) [Mass fraction] 98 % Angelita Ho MD Work Phone: [facility] 04-08-2022 13:35-0500 Systolic blood pressure 95 mm[Hg] Angelita Ho MD Work Phone: [facility] 04-08-2022 13:20-0500 Body temperature 99.1 [degF] Angelita Ho MD Work Phone: [facility] 04-08-2022 12:19-0500 Body height 157.5 cm Angelita Ho MD Work Phone: [facility] 04-08-2022 12:19-0500 Body mass index (BMI) [Ratio] 29.32 kg/m2 Angelita Ho MD Work Phone: [facility] 04-08-2022 12:19-0500 Body weight 72.71 kg Angelita Ho MD Work Phone: [facility] 04-01-2022 09:07-0500 Body height 157.5 cm Becky Hernan PA-C Work Phone: [facility] 04-01-2022 09:07-0500 Body weight 76.07 kg Becky Hernan PA-C Work Phone: [facility] 04-01-2022 09:07-0500 Diastolic blood pressure 80 mm[Hg] Becky Hernan PA-C Work Phone: [facility] 04-01-2022 09:07-0500 Heart rate 97 /min Becky Hernan PA-C Work Phone: [facility] 04-01-2022 09:07-0500 Systolic blood pressure 108 mm[Hg] Becky Hernan PA-C Work Phone: [facility] 03-27-2022 12:52-0500 SaO2% (BldA) [Mass fraction] 98 % Dr. Donna Perdomo Work Phone: [facility] 03-27-2022 09:03-0500 Body height 157.[address] Donna Perdomo Work Phone: [facility] Work Phone: 03-27-2022 09:03-0500 Body mass index (BMI) [Ratio] 29.9 kg/m2 Dr. Donna Perdomo Work Phone: [facility] 03-27-2022 09:03-0500 Body temperature 96.7 [degF] Dr. Donna Perdomo Work Phone: [facility] 03-27-2022 09:03-0500 Body weight 74.[address] Donna Perdomo Work Phone: [facility] 03-27-2022 09:03-0500 Diastolic blood pressure 46 mm[Hg] Dr. Donna Perdomo Work Phone: [facility] 03-27-2022 09:03-0500 Heart rate 116 /min Dr. Donna Perdomo Work Phone: [facility] 03-27-2022 09:03-0500 Respiratory rate 16 /min Dr. Donna Perdomo Work Phone: [facility] 03-27-2022 09:03-0500 Systolic blood pressure 113 mm[Hg] Dr. Donna Perdomo Work Phone: [facility] 02-05-2022 19:13-0400 Diastolic blood pressure 71 mm[Hg] Dr. Donna Perdomo Work Phone: [facility] 02-05-2022 19:13-0400 Systolic blood pressure 105 mm[Hg] Dr. Donna Perdomo Work Phone: [facility] 02-05-2022 15:46-0400 Heart rate 102 /min Dr. Donna Perdomo Work Phone: [facility] 02-05-2022 15:46-0400 Respiratory rate 20 /min Dr. Donna Perdomo Work Phone: [facility] 02-05-2022 15:46-0400 SaO2% (BldA) [Mass fraction] 96 % Dr. Donna Perdomo Work Phone: [facility] 02-05-2022 15:17-0400 Body height 157.[address] Donna Perdomo Work Phone: [facility] Work Phone: 02-05-2022 15:17-0400 Body mass index (BMI) [Ratio] 26.5 kg/m2 Dr. Donna Perdomo Work Phone: [facility] 02-05-2022 15:17-0400 Body temperature 98.8 [degF] Dr. Donna Perdomo Work Phone: [facility] 02-05-2022 15:17-0400 Body weight 65.[address] Donna Perdomo Work Phone: [facility] 01-13-2022 00:46-0400 Diastolic blood pressure 66 mm[Hg] Dr. Donna Perdomo Work Phone: [facility] Work Phone: 01-13-2022 00:46-0400 Heart rate 81 /min Dr. Donna Perdomo Work Phone: [facility] Work Phone: 01-13-2022 00:46-0400 Respiratory rate 18 /min Dr. Donna Perdomo Work Phone: [facility] Work Phone: 01-13-2022 00:46-0400 SaO2% (BldA) [Mass fraction] 95 % Dr. Donna Perdomo Work Phone: [facility] Work Phone: 01-13-2022 00:46-0400 Systolic blood pressure 104 mm[Hg] Dr. Donna Perdomo Work Phone: [facility] Work Phone: 01-12-2022 21:05-0400 Body mass index (BMI) [Ratio] 30.7 kg/m2 Dr. Donna Perdomo Work Phone: [facility] Work Phone: 01-12-2022 21:05-0400 Body temperature 98.8 [degF] Dr. Donna Perdomo Work Phone: [facility] Work Phone: 01-12-2022 21:05-0400 Body weight 76.[address] Donna Perdomo Work Phone: [facility] Work Phone: 12-22-2021 18:46-0400 Body temperature 98.29 [degF] Louise Soriano MACHINERY MOVER.SUPERVISOR TYPESETTING Work Phone: [facility] 12-22-2021 18:46-0400 Body weight 76.48 kg Louise Soriano MACHINERY MOVER.SUPERVISOR TYPESETTING Work Phone: [facility] 12-22-2021 18:46-0400 Diastolic blood pressure 86 mm[Hg] Louise Soriano MACHINERY MOVER.SUPERVISOR TYPESETTING Work Phone: [facility] 12-22-2021 18:46-0400 Heart rate 99 /min Louise Soriano MACHINERY MOVER.SUPERVISOR TYPESETTING Work Phone: [facility] 12-22-2021 18:46-0400 Respiratory rate 20 /min Louise Soriano MACHINERY MOVER.SUPERVISOR TYPESETTING Work Phone: [facility] 12-22-2021 18:46-0400 SaO2% (BldA) [Mass fraction] 98 % Louise Soriano MACHINERY MOVER.SUPERVISOR TYPESETTING Work Phone: [facility] 12-22-2021 18:46-0400 Systolic blood pressure 112 mm[Hg] Louise Soriano MACHINERY MOVER.SUPERVISOR TYPESETTING Work Phone: [facility] 12-01-2021 13:22-0400 Body temperature 98.01 [degF] Maya Kwame MACHINERY MOVER.SUPERVISOR TYPESETTING Work Phone: [facility] 12-01-2021 13:22-0400 Body weight 74.84 kg Maya Kwame MACHINERY MOVER.SUPERVISOR TYPESETTING Work Phone: [facility] 12-01-2021 13:22-0400 Diastolic blood pressure 88 mm[Hg] Maya Kwame MACHINERY MOVER.SUPERVISOR TYPESETTING Work Phone: [facility] 12-01-2021 13:22-0400 Heart rate 100 /min Maya Kwame MACHINERY MOVER.SUPERVISOR TYPESETTING Work Phone: [facility] 12-01-2021 13:22-0400 Respiratory rate 21 /min Maya Kwame MACHINERY MOVER.SUPERVISOR TYPESETTING Work Phone: [facility] 12-01-2021 13:22-0400 SaO2% (BldA) [Mass fraction] 99 % Maya Kwame MACHINERY MOVER.SUPERVISOR TYPESETTING Work Phone: [facility] 12-01-2021 13:22-0400 Systolic blood pressure 124 mm[Hg] Maya Kwame MACHINERY MOVER.SUPERVISOR TYPESETTING Work Phone: [facility] 10-17-2021 13:34-0400 Body temperature 98 [degF] RV SERVICER-C Dylan Velarde NP Work Phone: [facility] Work Phone: 10-17-2021 13:34-0400 Diastolic blood pressure 63 mm[Hg] RV SERVICER-C Dylan Pata RV SERVICER Work Phone: [facility] Work Phone: 10-17-2021 13:34-0400 Heart rate 75 /min RV SERVICER-C Dylan Pata RV SERVICER Work Phone: [facility] Work Phone: 10-17-2021 13:34-0400 Respiratory rate 16 /min RV SERVICER-C Dylan Pata RV SERVICER Work Phone: [facility] Work Phone: 10-17-2021 13:34-0400 SaO2% (BldA) [Mass fraction] 96 % RV SERVICER-C Dylan Pata RV SERVICER Work Phone: [facility] Work Phone: 10-17-2021 13:34-0400 Systolic blood pressure 96 mm[Hg] RV SERVICER-C Dylan Pata RV SERVICER Work Phone: [facility] Work Phone: 10-17-2021 10:42-0400 Body height 157.48 cm RV SERVICER-C Dylan Pata RV SERVICER Work Phone: [facility] Work Phone: 10-17-2021 10:42-0400 Body mass index (BMI) [Ratio] 28.2 kg/m2 [employer] SERVIC[employer]-C Dylan Pata RV SERVICER Work Phone: [facility] Work Phone: 10-17-2021 10:42-0400 Body weight 70 kg RV SERVICER-C Dylan Pata RV SERVICER Work Phone: [facility] Work Phone: 10-01-2021 10:24-0400 Body height 157.5 cm Sarah Pop MD Work Phone: [facility] 10-01-2021 10:24-0400 Body weight 71.03 kg Sarah Pop MD Work Phone: [facility] 10-01-2021 10:24-0400 Diastolic blood pressure 74 mm[Hg] Sarah Pop MD Work Phone: [facility] 10-01-2021 10:24-0400 Heart rate 82 /min Sarah Pop MD Work Phone: [facility] 10-01-2021 10:24-0400 Respiratory rate 16 /min Sarah Pop MD Work Phone: [facility] 10-01-2021 10:24-0400 Systolic blood pressure 104 mm[Hg] Sarah Pop MD Work Phone: [facility] 09-01-2021 10:24-0400 Body weight 68.13 kg Sarah Ppo MD Work Phone: [facility] 09-01-2021 10:24-0400 Diastolic blood pressure 70 mm[Hg] Sarah Pop MD Work Phone: [facility] [facility] 10:24-0400 Systolic blood pressure 100 mm[Hg] Sarah Pop MD Work Phone: [facility] 08-20-2021 14:22-0400 Body weight 68.13 kg Sarah Pop MD Work Phone: [facility] 08-20-2021 14:22-0400 Diastolic blood pressure 70 mm[Hg] Sarah Pop MD Work Phone: [facility] 08-20-2021 14:22-0400 Systolic blood pressure 104 mm[Hg] Sarah Pop MD Work Phone: [facility] 08-15-2021 11:52-0400 Heart rate 108 /min RV SERVICER-C Dylan Velarde RV SERVICER Work Phone: [facility] Work Phone: 08-15-2021 11:52-0400 Respiratory rate 17 /min RV SERVICER-C Dylan Velarde RV SERVICER Work Phone: [facility] Work Phone: 08-15-2021 11:52-0400 SaO2% (BldA) [Mass fraction] 98 % RV SERVICER-C Dylan Velarde RV SERVICER Work Phone: [facility] Work Phone: 08-15-2021 10:39-0400 Body temperature 97.8 [degF] RV SERVICER-C Dylan Velarde RV SERVICER Work Phone: [facility] Work Phone: 08-15-2021 10:39-0400 Diastolic blood pressure 99 mm[Hg] RV SERVICER-C Dylan Velarde RV SERVICER Work Phone: [facility] Work Phone: 08-15-2021 10:39-0400 Systolic blood pressure 111 mm[Hg] RV SERVICER-C Dylan Velarde RV SERVICER Work Phone: [facility] Work Phone: 08-15-2021 10:34-0400 Body height 154.94 cm RV SERVICER-C Dylan Velarde RV SERVICER Work Phone: [facility] Work Phone: 08-15-2021 10:34-0400 Body mass index (BMI) [Ratio] 27.3 kg/m2 RV SERVICER-C Dylan Velarde RV SERVICER Work Phone: [facility] Work Phone: 08-15-2021 10:34-0400 Body weight 65.77 kg RV SERVICER-C Dylan Velarde RV SERVICER Work Phone: [facility] Work Phone: 12-24-2020 09:02-0400 Body height 162.56 [...] Temporal 12-24-2020 09:02-0400 Body weight 74.5 kg iNna Bashir LPN [facility]; [facility] [...] (BldA) [Mass fraction] 98 % Nina Bashir LPN [facility]; [facility] Work Phone: Comment on above: Room air 12-24-2020 09:02-0400 Systolic blood pressure 102 mm[Hg] Nina Bashir CARL [facility]; [facility] Work Phone: Comment on above: Patient Position: Sitting; Cuff Location : Left Arm; Cuff Size: Standard 11-12-2020 08:21-0400 Body height 162.56 cm [facility]; [facility] Work Phone: 11-12-2020 08:21-0400 Body mass index (BMI) [Ratio] 22.83 kg/m2 [facility]; [facility] Work Phone: 11-12-2020 08:21-0400 Body surface area Derived from formula 1.64 m2 Zeinab Cain CMA [facility]; [facility] Work Phone: 11-12-2020 08:21-0400 Body temperature 97.1 [degF] Zeinab Cain CMA [facility]; [facility] Work Phone: Comment on above: Method: Thermal Scan 11-12-2020 08:21-0400 Body weight 60.33 kg Zeinab Cain [facility]; [facility] Work Phone: 11-12-2020 08:21-0400 Diastolic blood pressure 62 mm[Hg] Zeinab Cain CMA [facility]; [facility] Work Phone: Comment on above: Patient Position: Sitting; Cuff Location : Left Arm; Cuff Size: Standard 11-12-2020 08:21-0400 Heart rate 82 /min Zeinab Cain [facility]; [facility] Work Phone: Comment on above: Pattern: Regular 11-12-2020 08:21-0400 Respiratory rate 16 /min Zeinab Cain ENGINEERING AIDE [facility]; [facility] Work Phone: Comment on above: Pattern: Unlabored 11-12-2020 08:21-0400 SaO2% (BldA) [Mass fraction] 98 % Zeinab Cain [facility]; [facility] Work Phone: Comment on above: Room air 11-12-2020 08:21-0400 Systolic blood pressure 100 mm[Hg] Zeinab Cain [facility]; [facility] Work Phone: Comment on above: Patient Position: Sitting; Cuff Location : Left Arm; Cuff Size: Standard 03-13-2020 12:15-0500 BP Diastolic 76 mm[Hg] [facility] [place] 03-13-2020 12:15-0500 BP Systolic 120 mm[Hg] [facility] [place] 03-13-2020 12:15-0500 Pulse (Heart Rate) 90 /min Jacobo Valenzuela Deanna [facility], [place] 03-13-2020 12:15-0500 Pulse Oximetry 100 % Jacobo Huerta [facility] , [place] 03-13-2020 12:15-0500 Respiratory Rate 16 /min Jacobo Huerta [facility], [place] 03-13-2020 10:53-0500 BMI (Body Mass Index) 27.07 kg/m2 Jacobo Huerta [facility], [place] 03-13-2020 10:53-0500 Body Temperature 98.2 [degF] Jacobo Huerta [facility], [place] 03-13-2020 10:53-0500 Body weight 67.13 kg Jacobo Huerta [facility] , [place] 03-13-2020 10:53-0500 Height 157.5 cm Jacobo Huerta [facility] , [place] 10-08-2019 08:16-0400 Body Temperature 98.2 [degF] Khurram [facility], [place] 10-08-2019 08:16-0400 BP Diastolic 54 mm[Hg] [facility] , [place] 10-08-2019 08:16-0400 BP Systolic 100 mm[Hg] [facility] , [place] 10-08-2019 08:16-0400 Pulse (Heart Rate) 71 /min [facility], [place] 10-08-2019 08:16-0400 Pulse Oximetry 98 % [facility] , [place] 10-08-2019 08:16-0400 Respiratory Rate 15 /min [facility], [place] 10-07-2019 02:09-0400 BMI (Body Mass Index) 21.95 kg/m2 [facility], [place] 10-07-2019 02:09-0400 Body weight 54.43 kg [facility] , [place] 10-07-2019 02:09-0400 Height 157.5 cm [facility] , [place] 07-19-2019 14:27-0400 BMI (Body Mass Index) 22.83 kg/m2 Alexis leslie [facility]; [facility] Work Phone: [...] Surface Area) 1.64 m2 Alexis Iqbal LPN Compreh ensive [facility]; [facility] [...] Surface Area) 1.62 m2 Alexis Iqbal LPN Compreh ensive [facility]; [facility] [...] Surface Area) 1.63 m2 Alexis Iqbal LPN Compreh ensive [facility]; [facility] [...] 14:24-0500 BP Systolic 102 mm[Hg] Alexis Iqbal LPN [facility] Work Phone: Comment on above: Patient Position: Sitting; Cuff Location : Left Arm; Cuff Size: Standard 03-08-2019 14:24-0500 BSA (Body Surface Area) 1.63 m2 Alexis Iqbal LPN Compreh ensive [facility] Work Phone: 03-08-2019 14:24-0500 Height 162.56 cm Alexis Iqbal LPN [facility] Work Phone: 03-08-2019 14:24-0500 Pulse (Heart Rate) 91 /min Alexis Iqbal LPN Comprehensiv e [facility] Work Phone: Comment on above: Pattern: Regular 03-08-2019 14:24-0500 Pulse Oximetry 98 % Dylan Velarde [facility] Work Phone: Comment on above: Room air 03-08-2019 14:24-0500 Respiratory Rate 16 /min Alexis Iqbal LPN [facility] Work Phone: Comment on above: Pattern: Unlabored 03-08-2019 14:24-0500 SaO2% (BldA) [Mass fraction] 98 % Alexis Iqbal LPN [facility]; [facility] Work Phone: Comment on above: Room air 12-06-2018 14:49-0400 BMI (Body Mass Index) 21.8 kg/m2 Prerna Slarb CATECHIST Comprehen sive [facility] Work Phone: 12-06-2018 14:49-0400 Body Temperature 98.1 [degF] Prerna Slarb CATECHIST [facility] Work Phone: 12-06-2018 14:49-0400 Body weight 57.61 kg Prerna Faridarb CATECHIST [facility] Work Phone: 12-06-2018 14:49-0400 BP Diastolic 78 mm[Hg] Prerna Slarb CATECHIST [facility] Work Phone: Comment on above: Patient Position: Sitting; Cuff Location : Left Arm; Cuff Size: Standard 12-06-2018 14:49-0400 BP Systolic 116 mm[Hg] Prerna Slarb CATECHIST [facility] Work Phone: Comment on above: Patient Position: Sitting; Cuff Location : Left Arm; Cuff Size: Standard 12-06-2018 14:49-0400 BSA (Body Surface Area) 1.61 m2 Prerna Faridarb CATECHIST Compreh ensive [facility] Work Phone: 12-06-2018 14:49-0400 Height 162.56 cm Prerna Slarb CATECHIST [facility] Work Phone: 12-06-2018 14:49-0400 Pulse (Heart Rate) 84 /min Prerna Frederic CATECHIST Comprehensiv e [facility] Medicine Work Phone: Comment on above: Pattern: Regular 12-06-2018 14:49-0400 Pulse Oximetry 95 % Dylan Prachi [facility] Work Phone: Comment on above: Room air 12-06-2018 14:49-0400 Respiratory Rate 16 /min Prerna De La Garza CATECHIST [facility] Work Phone: Comment on above: Pattern: Unlabored 12-06-2018 14:49-0400 SaO2% (BldA) [Mass fraction] 95 % Prerna Slarb CATECHIST [facility]; [facility] Work [...] 10:20-0400 BP Diastolic 88 mm[Hg] Louise Cunningham [facility] Work Phone: Comment on above: Patient Position: Sitting; Cuff Location : Left Arm; Cuff Size: Standard 10-24-2018 10:20-0400 BP Systolic 124 mm[Hg] Louise Cunningham [facility] Work Phone: Comment on above: Patient Position: Sitting; Cuff Location : Left Arm; Cuff Size: Standard 10-24-2018 10:20-0400 BSA (Body Surface Area) 1.62 m2 Louise Hille nsive [facility] Work Phone: 10-24-2018 10:20-0400 Height 162.56 cm Louise Cunningham [facility] Work Phone: 10-24-2018 10:20-0400 Pulse (Heart Rate) 92 /min Louise Cunningham [facility] Work Phone: Comment on above: Pattern: Regular 10-24-2018 10:20-0400 Pulse Oximetry 98 % Dylan Velarde [facility] Work Phone: Comment on above: Room air 10-24-2018 10:20-0400 Respiratory Rate 18 /min Louise Cunningham [facility] Work Phone: Comment on above: Pattern: Unlabored 10-24-2018 10:20-0400 SaO2% (BldA) [Mass fraction] 98 % Louise Cunningham [facility]; [facility] Work Phone: Comment on above: Room air 10-24-2018 10:20-0400 Weight 58.24 kg Dylan Velarde [facility] Work Phone: 03-08-2018 09:56-0500 BMI (Body Mass Index) 22.31 kg/m2 Madai [place] [facility] Work Phone: 03-08-2018 09:56-0500 Body Temperature 98.1 [degF] Madai Dunbar [facility] Work Phone: Comment on above: Method: Temporal 03-08-2018 09:56-0500 Body weight 58.97 kg Madai Dunbar [facility] Work Phone: 03-08-2018 09:56-0500 BP Diastolic 73 mm[Hg] Madai Dunbar [facility] Work Phone: Comment on above: Patient Position: Sitting; Cuff Location : Left Arm; Cuff Size: Standard 03-08-2018 09:56-0500 BP Systolic 110 mm[Hg] Madai Dunbar [facility] Work Phone: Comment on above: Patient Position: Sitting; Cuff Location : Left Arm; Cuff Size: Standard 03-08-2018 09:56-0500 BSA (Body Surface Area) 1.63 m2 Madai Hille nsive [facility] Work Phone: 03-08-2018 09:56-0500 Height 162.56 cm Madai Dunbar [facility] Work Phone: 03-08-2018 09:56-0500 Pulse (Heart Rate) 96 /min Madai Dunbar [facility] Work Phone: Comment on above: Pattern: Regular 03-08-2018 09:56-0500 Pulse Oximetry 98 % Dylan Velarde [facility] Work Phone: Comment on above: Room air 03-08-2018 09:56-0500 Respiratory Rate 18 /min Madai Dunbar [facility] Work Phone: Comment on above: Pattern: Unlabored 03-08-2018 09:56-0500 SaO2% (BldA) [Mass fraction] 98 % Madai Dunbar [facility]; [facility] Work Phone: Comment on above: Room air 03-08-2018 09:56-0500 Weight 58.97 kg Dylan Velarde [facility] Work Phone: 02-11-2018 11:16-0400 BMI (Body Mass Index) 22.31 kg/m2 Madai [place] [facility] Work Phone: 02-11-2018 11:16-0400 Body Temperature 97.5 [degF] Madai Dunbar [facility] Work Phone: Comment on above: Method: Temporal 02-11-2018 11:16-0400 Body weight 58.97 kg Madai Dunbar [facility] Work Phone: 02-11-2018 11:16-0400 BP Diastolic 70 mm[Hg] Madai Dunbar [facility] Work Phone: Comment on above: Patient Position: Sitting; Cuff Location : Left Arm; Cuff Size: Standard 02-11-2018 11:16-0400 BP Systolic 104 mm[Hg] Madai Dunbar [facility] Work Phone: Comment on above: Patient Position: Sitting; Cuff Location : Left Arm; Cuff Size: Standard 02-11-2018 11:16-0400 BSA (Body Surface Area) 1.63 m2 Madai Rivera nsive [facility] Work Phone: 02-11-2018 11:16-0400 Height 162.56 cm Madai Dunbar [facility] Work Phone: 02-11-2018 11:16-0400 Pulse (Heart Rate) 76 /min Madai Dunbar [facility] Work Phone: Comment on above: Pattern: Regular 02-11-2018 11:16-0400 Pulse Oximetry 100 % Dylan Velarde [facility] Work Phone: Comment on above: Room air 02-11-2018 11:16-0400 Respiratory Rate 16 /min Madai Dunbar [facility] Work Phone: Comment on above: Pattern: Unlabored 02-11-2018 11:16-0400 SaO2% (BldA) [Mass fraction] 100 % Madai Dunbar [facility]; [facility] Work Phone: Comment on above: Room air 02-11-2018 11:16-0400 Weight 58.97 kg Dylan Velarde [facility] Work Phone: 02-07-2018 15:17-0400 BMI (Body Mass Index) 22.31 kg/m2 Madai [place] [facility] Work Phone: 02-07-2018 15:17-0400 Body Temperature 98.3 [degF] Madai Dunbar [facility] Work Phone: Comment on above: Method: Temporal 02-07-2018 15:17-0400 Body weight 58.97 kg Madai Dunbar [facility] Work Phone: 02-07-2018 15:17-0400 BP Diastolic 68 mm[Hg] Madai Dunbar [facility] Work Phone: Comment on above: Patient Position: Sitting; Cuff Location : Left Arm; Cuff Size: Standard 02-07-2018 15:17-0400 BP Systolic 102 mm[Hg] Madai Dunbar [facility] Work Phone: Comment on above: Patient Position: Sitting; Cuff Location : Left Arm; Cuff Size: Standard 02-07-2018 15:17-0400 BSA (Body Surface Area) 1.63 m2 Madai Rivera nsive [facility] Work Phone: 02-07-2018 15:17-0400 Height 162.56 cm Madai Dunbar [facility] Work Phone: 02-07-2018 15:17-0400 Pulse (Heart Rate) 102 /min Madai Dunbar [facility] Work Phone: Comment on above: Pattern: Regular 02-07-2018 15:17-0400 Pulse Oximetry 99 % Dylan Velarde [facility] Work Phone: Comment on above: Room air 02-07-2018 15:17-0400 Respiratory Rate 16 /min Madai Dunbar [facility] Work Phone: Comment on above: Pattern: Unlabored 02-07-2018 15:17-0400 SaO2% (BldA) [Mass fraction] 99 % Madai Dunbar [facility]; [facility] Work Phone: Comment on above: Room air 02-07-2018 15:17-0400 Weight 58.97 kg Dylan Velarde [facility] Work Phone: 01-24-2018 14:29-0400 BMI (Body Mass Index) 22.06 kg/m2 Madai [place] [facility] Work Phone: 01-24-2018 14:29-0400 Body Temperature 98.2 [degF] Madai Dunbar [facility] Work Phone: Comment on above: Method: Temporal 01-24-2018 14:040 Body weight 58.29 kg Madai Dunbar [facility] Work Phone: 01-24-2018 14:29-0400 BP Diastolic 62 mm[Hg] Madai Dunbar [facility] Work Phone: Comment on above: Patient Position: Sitting; Cuff Location : Left Arm; Cuff Size: Standard 01-24-2018 14:29-0400 BP Systolic 108 mm[Hg] Madai Dunbar [facility] Work Phone: Comment on above: Patient Position: Sitting; Cuff Location : Left Arm; Cuff Size: Standard 01-24-2018 14:29-0400 BSA (Body Surface Area) 1.62 m2 aMdai Rivera nsive [facility] Work Phone: 01-24-2018 14:29-0400 Height 162.56 cm Madai Dunbar [facility] Work Phone: 01-24-2018 14:29-0400 Pulse (Heart Rate) 96 /min Madai Dunbar [facility] Work Phone: Comment on above: Pattern: Regular 01-24-2018 14:29-0400 Pulse Oximetry 97 % Dylan Velarde [facility] Work Phone: Comment on above: Room air 01-24-2018 14:29-0400 Respiratory Rate 16 /min Madai Dunbar [facility] Work Phone: Comment on above: Pattern: Unlabored 01-24-2018 14:29-0400 SaO2% (BldA) [Mass fraction] 97 % Madai Dunbar [facility]; [facility] Work Phone: Comment on above: Room air 01-24-2018 14:29-0400 Weight 58.29 kg Dylan Velarde [facility] Work Phone: 12-24-2017 10:09-0400 BMI (Body Mass Index) 23.54 kg/m2 Madai [place] [facility] Work Phone: 12-24-2017 10:09-0400 Body Temperature 96.8 [degF] Madai Dunbar [facility] Work Phone: Comment on above: Method: Temporal 12-24-2017 10:040 Body weight 62.2 kg Madai Dunbar [facility] Work Phone: 12-24-2017 10:09-0400 BP Diastolic 72 mm[Hg] Madai Dunbar [facility] Work Phone: Comment on above: Patient Position: Sitting; Cuff Location : Left Arm; Cuff Size: Standard 12-24-2017 10:09-0400 BP Systolic 102 mm[Hg] Madai Dunbar [facility] Work Phone: Comment on above: Patient Position: Sitting; Cuff Location : Left Arm; Cuff Size: Standard 12-24-2017 10:09-0400 BSA (Body Surface Area) 1.67 m2 Madai Hille [facility] Work Phone: 12-24-2017 10:090400 Height 162.56 cm Madai Dunbar [facility] Work Phone: 12-24-2017 10:09-0400 Pulse (Heart Rate) 101 /min Madai Dunbar [facility] Work Phone: Comment on above: Pattern: Regular 12-24-2017 10:0400 Pulse Oximetry 99 % Dylan Velarde [facility] Work Phone: Comment on above: Room air 12-24-2017 10:09-0400 Respiratory Rate 16 /min Madai Dunbar [facility] Work Phone: Comment on above: Pattern: Unlabored 12-24-2017 10:09-0400 SaO2% (BldA) [Mass fraction] 99 % Madai Dunbar [facility]; [facility] Work Phone: Comment on above: Room air 12-24-2017 10:09-0400 Weight 62.2 kg Dylan Velarde [facility] Work Phone: 12-23-2017 12:57-0400 BMI (Body Mass Index) 23.54 kg/m2 Madai [place] [facility] Work Phone: 12-23-2017 12:57-0400 Body Temperature 98.2 [degF] Madai Dunbar [facility] Work Phone: Comment on above: Method: Temporal 12-23-2017 12:57-0400 Body weight 62.2 kg Madai Dunbar [facility] Work Phone: 12-23-2017 12:57-0400 BP Diastolic 60 mm[Hg] Madai Dunbar [facility] Work Phone: Comment on above: Patient Position: Sitting; Cuff Location : Left Arm; Cuff Size: Standard 12-23-2017 12:57-0400 BP Systolic 108 mm[Hg] Madai Dunbar [facility] Work Phone: Comment on above: Patient Position: Sitting; Cuff Location : Left Arm; Cuff Size: Standard 12-23-2017 12:57-0400 BSA (Body Surface Area) 1.67 m2 Madai Hille [facility] Work Phone: 12-23-2017 12:57-0400 Height 162.56 cm Madai Dunbar [facility] Work Phone: 12-23-2017 12:57-0400 Pulse (Heart Rate) 80 /min Madai Dunbar [facility] Work Phone: Comment on above: Pattern: Regular 12-23-2017 12:57-0400 Pulse Oximetry 97 % Dylan Velarde [facility] Work Phone: Comment on above: Room air 12-23-2017 12:57-0400 Respiratory Rate 16 /min Madai Dunbar [facility] Work Phone: Comment on above: Pattern: Unlabored 12-23-2017 12:57-0400 SaO2% (BldA) [Mass fraction] 97 % Madai Dunbar [facility]; [facility] Work Phone: Comment on above: Room air 12-23-2017 12:57-0400 Weight 62.2 kg Dylan Velarde [facility] Work Phone: 11-30-2017 14:59-0400 BMI (Body Mass Index) 23.54 kg/m2 Nancy Rocha RN [facility] Work Phone: 11-30-2017 14:59-0400 Body Temperature 97.7 [degF] Nancy Rocha RN [facility] Work Phone: 11-30-2017 14:59-0400 Body weight 62.2 kg Nancy Rocha RN [facility] Work Phone: 11-30-2017 14:59-0400 BP Diastolic 76 mm[Hg] Nancy Rocha RN [facility] Work Phone: Comment on above: Patient Position: Sitting; Cuff Location : Left Arm; Cuff Size: Standard 11-30-2017 14:59-0400 BP Systolic 118 mm[Hg] Nancy Rocha RN [facility] Work Phone: Comment on above: Patient Position: Sitting; Cuff Location : Left Arm; Cuff Size: Standard 11-30-2017 14:59-0400 BSA (Body Surface Area) 1.67 m2 Nancy Rocha RN Comprehe nsive [facility] Medicine Work Phone: 11-30-2017 14:59-0400 Height 162.56 cm Nancy Rocha RN [facility] Work Phone: 11-30-2017 14:59-0400 Pulse (Heart Rate) 78 /min Nancy Rocha RN [facility] Work Phone: Comment on above: Pattern: Regular 11-30-2017 14:59-0400 Respiratory Rate 16 /min Nancy Rocha RN [facility] Work Phone: Comment on above: Pattern: Unlabored 11-30-2017 14:59-0400 Weight 62.2 kg Dylan Velarde [facility] Work Phone: 08-03-2017 15:01-0400 BMI (Body Mass Index) 23.54 kg/m2 Alethea [place] [facility] Work Phone: 08-03-2017 15:01-0400 Body Temperature 97.8 [degF] Alethea Iqbal [facility] Work Phone: 08-03-2017 15:01-0400 Body weight 62.2 kg Alethea Iqbal [facility] Work Phone: 08-03-2017 15:01-0400 BP Diastolic 80 mm[Hg] Alethea Iqbal [facility] Work Phone: Comment on above: Patient Position: Sitting; Cuff Location : Left Arm; Cuff Size: Standard 08-03-2017 15:01-0400 BP Systolic 116 mm[Hg] Alethea Rasheed [facility] Work Phone: Comment on above: Patient Position: Sitting; Cuff Location : Left Arm; Cuff Size: Standard 08-03-2017 15:01-0400 BSA (Body Surface Area) 1.67 m2 Alethea Rivera ns[facility] Work Phone: 08-03-2017 15:01-0400 Height 162.56 cm Alethea Iqbal [facility] Work Phone: 08-03-2017 15:01-0400 Pulse (Heart Rate) 91 /min Alethea Rasheed [facility] Work Phone: Comment on above: Pattern: Regular 08-03-2017 15:01-0400 Pulse Oximetry 98 % Dylan Velarde [facility] Work Phone: Comment on above: Room air 08-03-2017 15:01-0400 Respiratory Rate 18 /min Alethea Iqbal [facility] Work Phone: Comment on above: Pattern: Unlabored 08-03-2017 15:01-0400 SaO2% (BldA) [Mass fraction] 98 % Alethea Iqbal [facility]; [facility] Work Phone: Comment on above: Room air 08-03-2017 15:01-0400 Weight 62.2 kg Dylan Velarde [facility] Work Phone: 05-31-2017 15:23-0500 [...] 15:23-0500 Pulse Oximetry 99 % Dylan Velarde [facility] Work Phone: Comment on above: Room air 05-31-2017 15:23-0500 Respiratory Rate 18 /min Kaylyn Portillo RN [facility] Work Phone: Comment on above: Pattern: Unlabored 05-31-2017 15:23-0500 SaO2% (BldA) [Mass fraction] 99 % Kaylyn Portillo RN [facility]; [facility] Work Phone: Comment on above: Room air 05-31-2017 15:23-0500 Weight 62.2 kg Dylan [facility] Internal Medicine Work Phone: 03-02-2017 15:29-0400 BMI (Body Mass Index) 21.5 kg/m2 Prerna [facility] Internal Medicine Work Phone: 03-02-2017 15:29-0400 Body Temperature 97.9 [degF] Prerna De La Garza CATECHIST [facility] Work Phone: 03-02-2017 15:29-0400 Body weight 56.81 kg Prerna De La Garza CATECHIST [facility] Work Phone: 03-02-2017 15:29-0400 BP Diastolic 72 mm[Hg] Prerna Faridarb CATECHIST [facility] Work Phone: Comment on above: Patient Position: Sitting; Cuff Location : Left Arm; Cuff Size: Standard 03-02-2017 15:29-0400 BP Systolic 118 mm[Hg] Prerna Faridarb CATECHIST [facility] Work Phone: Comment on above: Patient Position: Sitting; Cuff Location : Left Arm; Cuff Size: Standard 03-02-2017 15:290400 BSA (Body Surface Area) 1.6 m2 Prerna De La Garza CATECHIST Compreh ensive Internal Medicine Work Phone: 03-02-2017 15:29-0400 Height 162.56 cm Prerna De La Garza CATECHIST [facility] Work Phone: 03-02-2017 15:29-0400 Pulse (Heart Rate) 73 /min Prerna De La Garza LPN Comprehensiv e Internal Medicine Work Phone: Comment on above: Pattern: Regular 03-02-2017 15:29-0400 Pulse Oximetry 99 % Dylan Velarde [facility] Work Phone: Comment on above: Room air 03-02-2017 15:29-0400 Respiratory Rate 16 /min Prerna De La Garza CATECHIST [facility] Work Phone: Comment on above: Pattern: Unlabored 03-02-2017 15:29-0400 SaO2% (BldA) [Mass fraction] 99 % Prerna Faridarb CATECHIST [facility]; [facility] Work Phone: Comment on above: Room air 03-02-2017 15:29-0400 Weight 56.81 kg Dylan Velarde [facility] Internal Medicine Work Phone: 02-10-2017 11:09-0400 BMI (Body Mass Index) 21.5 kg/m2 Prerna De La Garza CATECHIST Comprehen sive Internal Medicine Work Phone: 02-10-2017 11:090400 Body Temperature 97.9 [degF] Prerna De La Garza CATECHIST [facility] Work Phone: 02-10-2017 11:090400 Body weight 56.81 kg Prerna De La Garza CATECHIST [facility] Work Phone: 02-10-2017 11:09-0400 BP Diastolic 70 mm[Hg] Prerna Faridarb CATECHIST [facility] Work Phone: Comment on above: Patient Position: Sitting; Cuff Location : Left Arm; Cuff Size: Standard 02-10-2017 11:090400 BP Systolic 98 mm[Hg] Prerna De La Garza LPN [facility] Work Phone: Comment on above: Patient Position: Sitting; Cuff Location : Left Arm; Cuff Size: Standard 02-10-2017 11:090400 BSA (Body Surface Area) 1.6 m2 Prerna De La Garza LPN Compreh ensive Internal Medicine Work Phone: 02-10-2017 11:090400 Height 162.56 cm Prerna De La Garza LPN [facility] Work Phone: 02-10-2017 11:09-0400 Pulse (Heart Rate) 94 /min Prerna De La Garza LPN Comprehensiv e Internal Medicine Work Phone: Comment on above: Pattern: Regular 02-10-2017 11:090400 Pulse Oximetry 97 % Dylan Velarde [facility] Work Phone: Comment on above: Room air 02-10-2017 11:090400 Respiratory Rate 18 /min Prerna De La Garza LPN [facility] Work Phone: Comment on above: Pattern: Unlabored 02-10-2017 11:09-0400 SaO2% (BldA) [Mass fraction] 97 % Prerna De La Garza CATECHIST [facility]; [facility] Work Phone: Comment on above: Room air 02-10-2017 11:09-0400 Weight 56.81 kg Dylan Velarde [facility] Internal Medicine Work Phone: 05-19-2016 15:38-0500 BMI (Body Mass Index) 21.28 kg/m2 Prerna De La Garza LPN Comprehen sive Internal Medicine Work Phone: 05-19-2016 15:38-0500 Body Temperature 98.4 [degF] Prerna Iqbalmiguelangel BARONN [facility] Work Phone: 05-19-2016 15:38-0500 Body weight 56.25 kg Prerna De La Garza CATECHIST [facility] Work Phone: 05-19-2016 15:38-0500 BP Diastolic 68 mm[Hg] Prerna Iqbalrb CATECHIST [facility] Work Phone: Comment on above: Patient Position: Sitting; Cuff Location : Left Arm; Cuff Size: Standard 05-19-2016 15:38-0500 BP Systolic 108 mm[Hg] Prerna Iqbalmiguelangel BARONN [facility] Work Phone: Comment on above: Patient Position: Sitting; Cuff Location : Left Arm; Cuff Size: Standard 05-19-2016 15:38-0500 BSA (Body Surface Area) 1.6 m2 Prerna De La Garza CATECHIST Compreh ensive Internal Medicine Work Phone: 05-19-2016 15:38-0500 Height 162.56 cm Prerna Iqbalmiguelangel BARONN [facility] Work Phone: 05-19-2016 15:38-0500 Pulse (Heart Rate) 84 /min Prerna De La Garza CATECHIST Comprehensiv e Internal Medicine Work Phone: Comment on above: Pattern: Regular 05-19-2016 15:38-0500 Pulse Oximetry 98 % Dylan Velarde [facility] Internal Medicine Work Phone: Comment on above: Room air 05-19-2016 15:38-0500 Respiratory Rate 17 /min Prerna De La Garza CATECHIST [facility] Work Phone: Comment on above: Pattern: Unlabored 05-19-2016 15:38-0500 SaO2% (BldA) [Mass fraction] 98 % Prerna Slarb CATECHIST [facility]; [facility] Work Phone: Comment on above: Room air 05-19-2016 15:38-0500 Weight 56.25 kg Dylan Velarde [facility] Work Phone: 01-31-2016 08:12-0400 BMI (Body Mass Index) 21.16 kg/m2 Prerna Slarb CATECHIST Comprehen sive Internal Medicine Work Phone: 01-31-2016 08:12-0400 Body Temperature 98.6 [degF] Prerna Slarb CATECHIST [facility] Work Phone: 01-31-2016 08:12-0400 Body weight 55.91 kg Prerna Iqbalrb CATECHIST [facility] Work Phone: 01-31-2016 08:12-0400 BP Diastolic 64 mm[Hg] Prerna Slarb CATECHIST [facility] Work Phone: Comment on above: Patient Position: Sitting; Cuff Location : Left Arm; Cuff Size: Standard 01-31-2016 08:12-0400 BP Systolic 102 mm[Hg] Prerna Faridarb CATECHIST [facility] Work Phone: Comment on above: Patient Position: Sitting; Cuff Location : Left Arm; Cuff Size: Standard 01-31-2016 08:12-0400 BSA (Body Surface Area) 1.59 m2 Prerna Faridarb CATECHIST Compreh ensive Internal Medicine Work Phone: 01-31-2016 08:12-0400 Height 162.56 cm Prerna Slarb CATECHIST [facility] Work Phone: 01-31-2016 08:12-0400 Pulse (Heart Rate) 93 /min Prerna Slarb CATECHIST Comprehensiv e Internal Medicine Work Phone: Comment on above: Pattern: Regular 01-31-2016 08:12-0400 Pulse Oximetry 99 % Dylan Velarde [facility] Work Phone: Comment on above: Room air 01-31-2016 08:12-0400 Respiratory Rate 17 /min Prerna Slarb CATECHIST [facility] Work Phone: Comment on above: Pattern: Unlabored 01-31-2016 08:12-0400 SaO2% (BldA) [Mass fraction] 99 % Prerna De La Garza LPN [facility]; [facility] Work Phone: Comment on above: Room air 01-31-2016 08:12-0400 Weight 55.91 kg Dylan Velarde [facility] Internal Medicine Work Phone: 10-10-2015 09:23-0400 BMI (Body Mass Index) 20.17 kg/m2 [place] [facility] Internal [facility] Work Phone: 10-10-2015 09:23-0400 Body Temperature 98 [degF] [facility] Internal Medicine Work Phone: 10-10-2015 09:23-0400 Body weight 53.3 kg [facility] Internal Medicine Work Phone: 10-10-2015 09:23-0400 BP Diastolic 58 mm[Hg] [facility] Internal Medicine Work Phone: Comment on above: Patient Position: Sitting; Cuff Location : Left Arm; Cuff Size: Standard 10-10-2015 09:23-0400 BP Systolic 108 mm[Hg] [facility] Internal Medicine Work Phone: Comment on above: Patient Position: Sitting; Cuff Location : Left Arm; Cuff Size: Standard 10-10-2015 09:23-0400 BSA (Body Surface [facility]) 1.56 m2 [facility] Work Phone: 10-10-2015 09:23-0400 Height 162.56 cm [facility] Internal Medicine Work Phone: 10-10-2015 09:23-0400 Pulse (Heart Rate) 91 /min [facility] Internal Medicine Work Phone: Comment on above: Pattern: Regular 10-10-2015 09:23-0400 Pulse Oximetry 98 % Dylan Velarde [facility] Internal Medicine Work Phone: Comment on above: Room air 10-10-2015 09:23-0400 Respiratory Rate 16 /min [place] [facility] Work Phone: Comment on above: Pattern: Unlabored 10-10-2015 09:23-0400 SaO2% (BldA) [Mass fraction] 98 % Pierce Beckham [facility] Internal Medicine; [facility] Work Phone: Comment on above: Room air 10-10-2015 09:23-0400 Weight 53.3 kg Dylan Velarde [facility] Work Phone: 08-30-2015 09:13-0400 BMI (Body Mass Index) 20.68 kg/m2 Prerna Slarb CATECHIST Comprehen sive Internal Medicine Work Phone: 08-30-2015 09:13-0400 Body Temperature 97.6 [degF] Prerna Slarb CATECHIST [facility] Work Phone: 08-30-2015 09:13-0400 Body weight 54.66 kg Prerna Slarb CATECHIST [facility] Work Phone: 08-30-2015 09:13-0400 BP Diastolic 66 mm[Hg] Prerna Slarb CATECHIST [facility] Work Phone: Comment on above: Patient Position: Sitting; Cuff Location : Left Arm; Cuff Size: Standard 08-30-2015 09:13-0400 BP Systolic 108 mm[Hg] Prerna Slarb CATECHIST [facility] Work Phone: Comment on above: Patient Position: Sitting; Cuff Location : Left Arm; Cuff Size: Standard 08-30-2015 09:13-0400 BSA (Body Surface Area) 1.58 m2 Prerna Slarb CATECHIST Compreh ensive Internal Medicine Work Phone: 08-30-2015 09:13-0400 Height 162.56 cm Prerna Slarb CATECHIST [facility] Work Phone: 08-30-2015 09:13-0400 Pulse (Heart Rate) 73 /min Prerna Slarb CATECHIST Comprehensiv e Internal Medicine Work Phone: Comment on above: Pattern: Regular 08-30-2015 09:13-0400 Pulse Oximetry 99 % Dylan Ciesa [facility] Work Phone: Comment on above: Room air 08-30-2015 09:13-0400 Respiratory Rate 16 /min Prerna Slarb CATECHIST [facility] Work Phone: Comment on above: Pattern: Unlabored 08-30-2015 09:13-0400 SaO2% (BldA) [Mass fraction] 99 % Prerna Slarb CATECHIST [facility]; [facility] Work Phone: Comment on above: Room air 08-30-2015 09:13-0400 Weight 54.66 kg Dylan Velarde [facility] Work Phone: 08-09-2015 09:09-0400 BMI (Body Mass Index) 20.68 kg/m2 Prerna Slarb CATECHIST Comprehen sive Internal Medicine Work Phone: 08-09-2015 09:09-0400 Body Temperature 97.6 [degF] Prerna Slarb CATECHIST [facility] Work Phone: 08-09-2015 09:09-0400 Body weight 54.66 kg Prerna Slarb CATECHIST [facility] Work Phone: 08-09-2015 09:09-0400 BP Diastolic 68 mm[Hg] Prerna Slarb CATECHIST [facility] Work Phone: Comment on above: Patient Position: Sitting; Cuff Location : Left Arm; Cuff Size: Standard 08-09-2015 09:09-0400 BP Systolic 114 mm[Hg] Prerna Slarb CATECHIST [facility] Work Phone: Comment on above: Patient Position: Sitting; Cuff Location : Left Arm; Cuff Size: Standard 08-09-2015 09:09-0400 BSA (Body Surface Area) 1.58 m2 Prerna Slarb CATECHIST Compreh ensive Internal Medicine Work Phone: 08-09-2015 09:09-0400 Height 162.56 cm Prerna Slarb CATECHIST [facility] Work Phone: 08-09-2015 09:09-0400 Pulse (Heart Rate) 104 /min Prerna Slarb CATECHIST Comprehensiv e Internal Medicine Work Phone: Comment on above: Pattern: Regular 08-09-2015 09:09-0400 Pulse Oximetry 99 % Dylan Velarde [facility] Work Phone: Comment on above: Room air 08-09-2015 09:09-0400 Respiratory Rate 16 /min Prerna De La Garza CARL [facility] Work Phone: Comment on above: Pattern: Unlabored 08-09-2015 09:09-0400 SaO2% (BldA) [Mass fraction] 99 % Prerna Iqbalmiguelangel HENRY [facility]; [facility] Work Phone: Comment on above: Room air 08-09-2015 09:09-0400 Weight 54.66 kg Dylan Velarde [facility] Work Phone: 06-28-2015 08:35-0500 BMI [...] 06-28-2015 08:35-0500 Pulse Oximetry 99 % Dylan Velarde [facility] [...] air 06-28-2015 08:35-0500 Weight 55.34 kg Dylan Velarde [facility] Work Phone: 05-31-2015 08:38-0500 [...] 05-31-2015 08:38-0500 Pulse Oximetry 98 % Dylan Velarde [facility] Internal Medicine Work Phone: Comment on above: Room air 05-31-2015 08:38-0500 SaO2% (BldA) [Mass fraction] 98 % Kaylyn Portillo RN [facility]; [facility] Work Phone: Comment on above: Room air 05-31-2015 08:38-0500 Weight 53.24 kg Dylan Velarde [facility] Work Phone: 03-01-2015 10:02-0400 BMI (Body Mass Index) 20.47 kg/m2 Prerna Slarb CATECHIST Comprehen sive Internal Medicine Work Phone: 03-01-2015 10:02-0400 Body Temperature 97.8 [degF] Prerna Faridarb CATECHIST [facility] Work Phone: 03-01-2015 10:02-0400 Body weight 54.09 kg Prerna Faridarb CATECHIST [facility] Work Phone: 03-01-2015 10:02-0400 BP Diastolic 64 mm[Hg] Prerna Slarb CATECHIST [facility] Work Phone: Comment on above: Patient Position: Sitting; Cuff Location : Left Arm; Cuff Size: Standard 03-01-2015 10:02-0400 BP Systolic 102 mm[Hg] Prerna Faridarb CATECHIST [facility] Work Phone: Comment on above: Patient Position: Sitting; Cuff Location : Left Arm; Cuff Size: Standard 03-01-2015 10:02-0400 BSA (Body Surface Area) 1.57 m2 Prerna Frederic CATECHIST Compreh ensive Internal Medicine Work Phone: 03-01-2015 10:02-0400 Height 162.56 cm Prerna Faridarb CATECHIST [facility] Work Phone: 03-01-2015 10:02-0400 Pulse (Heart Rate) 88 /min Prerna Slarb CATECHIST Comprehensiv e Internal Medicine Work Phone: Comment on above: Pattern: Regular 03-01-2015 10:02-0400 Pulse Oximetry 98 % Dylan Velarde [facility] Work Phone: Comment on above: Room air 03-01-2015 10:02-0400 Respiratory Rate 16 /min Prerna Slarb CATECHIST [facility] Work Phone: Comment on above: Pattern: Unlabored 03-01-2015 10:02-0400 SaO2% (BldA) [Mass fraction] 98 % Prerna Iqbalrb CATECHIST [facility]; [facility] Work Phone: Comment on above: Room air 03-01-2015 10:02-0400 Weight 54.09 kg Dylan Velarde [facility] Work Phone: 02-26-2015 10:25-0400 BMI (Body Mass Index) 20.47 kg/m2 Prerna Iqbalrb CATECHIST Comprehen sive Internal Medicine Work Phone: 02-26-2015 10:25-0400 Body Temperature 98 [degF] Prerna Slarb CATECHIST [facility] Work Phone: 02-26-2015 10:25-0400 Body weight 54.09 kg Prerna Iqbalrb CATECHIST [facility] Work Phone: 02-26-2015 10:25-0400 BP Diastolic 66 mm[Hg] Prerna Faridarb CATECHIST [facility] Work Phone: Comment on above: Patient Position: Sitting; Cuff Location : Left Arm; Cuff Size: Standard 02-26-2015 10:25-0400 BP Systolic 104 mm[Hg] Prerna Faridarb CATECHIST [facility] Work Phone: Comment on above: Patient Position: Sitting; Cuff Location : Left Arm; Cuff Size: Standard 02-26-2015 10:25-0400 BSA (Body Surface Area) 1.57 m2 Prerna De La Garza CATECHIST Compreh ensive Internal Medicine Work Phone: 02-26-2015 10:25-0400 Height 162.56 cm Prerna Slarb CATECHIST [facility] Work Phone: 02-26-2015 10:25-0400 Pulse (Heart Rate) 82 /min Prerna Frederic CATECHIST Comprehensiv e Internal Medicine Work Phone: Comment on above: Pattern: Regular 02-26-2015 10:25-0400 Pulse Oximetry 97 % Dylan Velarde [facility] Work Phone: Comment on above: Room air 02-26-2015 10:25-0400 Respiratory Rate 16 /min Prerna De La Garza CARL [facility] Work Phone: Comment on above: Pattern: Unlabored 02-26-2015 10:25-0400 SaO2% (BldA) [Mass fraction] 97 % Prerna De La Garza CATECHIST [facility]; [facility] Work Phone: Comment on above: Room air 02-26-2015 10:25-0400 Weight 54.09 kg Dylan Velarde [facility] Work Phone: Encounters Encounter Date Encounter Type Care Provider Facility Start: 03-05-2025 End: 03-05-2025 ambulatory [facility] Facility:[facility] Start: 03-02-2025 ambulatory [facility] Start: 02-05-2025 End: 02-05-[address] Kendall Conroy MD -[facility] Work Phone: Start: 02-05-2025 End: 02-05-[address] Leander Patel MD Work Phone: -[facility] Start: 01-27-2025 End: 01-29-2025 Evaluation and management of inpatient KAIDEN RAUSCH Facility:[facility] Start: 01-27-2025 End: 01-27-2025 Emergency department patient visit Dr. Leander Patel MD Work Phone: -Emergency Department Work Phone: Start: 01-22-2025 End: 01-22-2025 Telephone encounter Rupal Phillips MA [facility] Comment on above: Insurance ([employer]) Start: 01-18-2025 End: 01-18-[address] Leander Patel MD Work Phone: -Laboratory Start: 01-18-2025 End: 01-18-[address] Kendall Conroy MD -Laboratory Work Phone: Start: 01-18-2025 End: 01-18-2025 ambulatory [facility] Start: 01-11-2025 End: 01-11-[address] Leander Patel MD Work Phone: -Laboratory Specimen Start: 01-11-2025 End: 01-11-[address] Leander Patel MD -Laboratory Specimen Work Phone: Start: 01-11-2025 End: 01-11-[address] Leander Patel MD [facility] Work Phone: Start: 01-11-2025 End: 01-11-[address] Leander Patel MD Work Phone: -[facility] Start: 01-11-2025 End: 01-11-2025 ambulatory [place] Pat[place] Facility:[facility] Start: 12-11-2024 End: 12-11-[address] Kendall Conroy MD -[facility] Work Phone: Start: 12-11-2024 End: 12-11-[address] Leander Patel MD Work Phone: -[facility] Start: 11-28-2024 End: 11-28-[address] Leander Patel MD Work Phone: -Laboratory Start: 11-28-2024 End: 11-28-[address] Kendall Conroy MD -Laboratory Work Phone: Start: 11-28-2024 End: 11-28-2024 ambulatory [facility] Facility:[facility] Start: 11-07-2024 End: 11-07-[address] Kendall Conroy MD -[facility] Work Phone: Start: 11-07-2024 End: 11-07-[address] Donna Perdomo MD Work Phone: -[facility] Start: 11-04-2024 End: 11-04-2024 Emergency department patient visit Dr. Donna Perdomo MD Work Phone: -Emergency Department Work Phone: Start: 11-02-2024 End: 11-02-[address] Leander Patel MD -[facility] Work Phone: Start: 11-02-2024 End: 11-02-[address] Donna Perdomo MD Work Phone: -[facility] Start: 10-13-2024 End: 10-13-[address] Donna Perdomo MD Work Phone: [facility] Work Phone: Start: 10-13-2024 End: 10-13-2024 Patient encounter procedure Louise Torrez RV SERVICER-C -Radiology [facility] Work Phone: Start: 10-13-2024 End: 10-13-2024 Patient encounter procedure Louise Torrez RV SERVICER-C -[facility] Work Phone: Start: 10-13-2024 End: 10-13-[address] Donna Perdomo MD Work Phone: [facility] Work Phone: Start: 10-13-2024 End: 10-13-2024 ambulatory Leander Patel Facility:[facility] Start: 10-06-2024 End: 10-09-2024 Evaluation and management of inpatient DYLAN VELARDE Facility:[facility] Start: 10-06-2024 End: 10-07-2024 ambulatory Rivka Richards APRN.SUPERVISOR TYPESETTING Work Phone: Critical Care Start: 10-06-2024 End: 10-06-2024 Emergency department patient visit Dr. Donna Perdomo MD Work Phone: -Emergency Department Work Phone: Start: 10-03-2024 End: 10-03-[address] Donna Perdomo MD Work Phone: [facility] Work Phone: Start: 10-03-2024 End: 10-03-2024 Patient encounter procedure Katie TAYLOR -Nuclear Medicine [facility] Work Phone: Start: 10-03-2024 End: 10-03-2024 ambulatory Katie Mayo Facility:[facility] Start: 09-14-2024 End: 09-14-2024 Patient encounter procedure Katie TAYLOR -[facility] Work Phone: Start: 09-14-2024 End: 09-14-[address] Donna Perdomo MD Work Phone: [facility] Work Phone: Start: 08-23-2024 End: 08-23-[address] Kendall Conroy MD -Laboratory Work Phone: Start: 08-23-2024 End: 08-23-2024 ambulatory Kendall Conroy Facility:[facility] Start: 08-21-2024 End: 08-21-2024 Patient encounter procedure Katie TAYLOR -Radiology, [facility] Work Phone: Start: 08-21-2024 End: 08-21-2024 ambulatory [facility] Facility:[facility] Start: 08-18-2024 End: 08-18-2024 Emergency department patient visit Dr. Donna Perdomo MD Work Phone: -Emergency Department Work Phone: Start: 08-16-2024 End: 08-16-2024 Patient encounter procedure Katie TAYLOR -Laboratory Work Phone: Start: 08-16-2024 End: 08-16-[address] Donna Perdomo MD Work Phone: [facility] Work Phone: Start: 08-16-2024 End: 08-16-2024 ambulatory [facility] Facility:[facility] Start: 08-05-2024 End: 08-05-[address] Donna Perdomo MD Work Phone: [facility] Work Phone: Start: 08-05-2024 End: 08-05-[address] Kendall Conroy MD -Laboratory Work Phone: Start: 08-05-2024 End: 08-05-2024 ambulatory [facility] Start: 07-26-2024 End: 07-26-[address] Leander Patel MD -[facility] Work Phone: Start: 07-26-2024 End: 07-26-2024 ambulatory Donna Leanne [facility] Start: 07-18-2024 End: 07-18-[address] Donna Perdomo MD Work Phone: [facility] Work Phone: Start: 07-18-2024 End: 07-18-[address] Kendall Conroy MD -Pulmonary Services/Neurology Work Phone: Start: 07-18-2024 End: 07-18-2024 ambulatory [facility] Start: 07-06-2024 End: 07-06-[address] Kendall Conroy MD -[facility] Work Phone: Start: 07-06-2024 End: 07-06-2024 ambulatory [facility] Facility:[facility] Start: 04-17-2024 End: 04-17-[address] Kendall Conroy MD -Laboratory Work Phone: Start: 04-17-2024 End: 04-17-2024 ambulatory [facility] Start: 04-12-2024 End: 04-12-[address] Kendall Conroy MD -[facility] Work Phone: Start: 04-12-2024 End: 04-12-2024 ambulatory [facility] Start: 03-13-2024 End: 03-13-2024 ambulatory Donna [facility] Facility:[facility] Start: 02-20-2024 End: 02-21-2024 Refill Talya Rodriguez MACHINERY MOVER-SUPERVISOR TYPESETTING Work Phone: [facility] Comment on above: Localization-related (focal) (partial) idiopathic epilepsy and epileptic syndromes with seizures of localized onset, intractable, without status epilepticus Start: 11-01-2023 ambulatory DONNA PERDOMO Facility :[facility] Start: 10-11-2023 End: 10-11-2023 ambulatory DYLAN VELARDE Facility:[facility] Start: 10-11-2023 End: 10-11-2023 Patient encounter procedure Maya Puente APRN.SUPERVISOR TYPESETTING Work Phone: [facility] Comment on above: Sore throat (Primary Dx); Otalgia of right ear Start: 08-12-2023 End: 08-12-2023 Office outpatient visit 40 minutes Talya Rodriguez MACHINERY MOVER-SUPERVISOR TYPESETTING Work Phone: [facility] [place] Comment on above: Localization-related (focal) (partial) idiopathic epilepsy and epileptic syndromes with seizures of localized onset, intractable, without status epilepticus (Primary Dx) Start: 08-12-2023 ambulatory TALYA RODRIGUEZ Facilit y:[facility] Start: 08-12-2023 End: 08-12-2023 Office outpatient visit 25 minutes Talya Rodriguez MACHINERY MOVER-SUPERVISOR TYPESETTING Work Phone: [facility] [place] Comment on above: MG (myasthenia gravi s) (Primary Dx) Start: 08-12-2023 ambulatory TALYA RODRIGUEZ Facilit y:[facility] Start: 05-21-2023 Telephone encounter Rupal Phillips MA [facility] [place] Comment on above: Insurance (Lamotrigi ne ) Start: 02-12-2023 End: 02-12-2023 Patient encounter procedure Edgar Ayers MD Work Phone: [facility] Comment on above: MG (myasthenia gravi s) (Primary Dx) Start: 02-12-2023 End: 02-12-2023 ambulatory [id number] In[facility] Start: 02-02-2023 Evaluation and management of inpatient DONNA PERDOMO Facility:[facility] Start: 12-19-2022 End: 12-19-2022 ambulatory [facility] Work Phone: Start: 12-19-2022 End: 12-19-2022 Patient encounter procedure [facility]Labor[facility] Work Phone: Start: 12-03-2022 End: 12-03-2022 Office outpatient visit 25 minutes Renee Donald MACHINERY MOVER-SUPERVISOR TYPESETTING Work Phone: [facility] [place] Comment on above: MG (myasthenia gravi s) (Primary Dx) Start: 12-03-2022 ambulatory RENEE DONALD Facil ity:[facility] Start: 11-13-2022 End: 11-13-2022 Office consultation new/estab patient 60 min Edgar Ayers MD Work Phone: [facility]patient [facility] Comment on above: Breakthrough seizure Start: 11-13-2022 ambulatory MERRICK LOPEZ Facility:[facility] Start: 10-29-2022 End: 11-02-2022 Evaluation and management of inpatient Nancy Faith MD Work Phone: [facility] Comment on above: Seizures Start: 10-29-2022 End: 10-29-2022 Emergency department patient visit [facility]Emergency Department Work Phone: Start: 10-06-2022 End: 10-06-2022 Office consultation new/estab patient 80 min Pankaj Mejias MD Work Phone: [facility] [place] Comment on above: Myasthenia gravis (P rimary Dx); Medication management Start: 09-07-2022 End: 09-07-2022 Emergency department patient visit [facility]Emergency Department Start: 09-04-2022 Telephone encounter Angela louie MD Work Phone: [facility] Neuroscience Comment on above: Appointment Request (RV SERVICER Appt) Start: 08-08-2022 End: 08-08-2022 [facility] Start: 07-30-2022 End: 08-07-2022 Evaluation and management of inpatient WARD ZHAO [facility] Start: 07-30-2022 End: 07-30-2022 Emergency department patient visit EDWIGE BOB [facility] Start: 07-30-2022 End: 08-07-2022 Evaluation and management of inpatient Rivka Cid DO Work Phone: [facility] 7E Oncology Comment on above: Myasthenic crisis (C MS/HCC) (HCC) (Primary Dx); Adjustment reaction with anxiety and depression Start: 07-30-2022 End: 07-30-2022 Subsequent hospital visit by physician Ean [facility] Comment on above: Arrived Start: 07-30-2022 End: 07-30-2022 ambulatory PERLA CANTOR [facility] Start: 07-30-2022 End: 07-30-2022 Subsequent hospital visit by physician Perla Cantor MD Work Phone: [facility] Special Procedures Comment on above: MG (myasthenia gravi s) (HCC); Myasthenia gravis with (acute) exacerbation (HCC) Start: 07-29-2022 Transcribe Orders Physician Test [facility] Start: 07-29-2022 End: 07-29-2022 Patient encounter procedure [facility]Labor[facility] Start: 07-17-2022 End: 07-17-2022 [facility] Start: 07-17-2022 End: 07-17-2022 Patient encounter procedure Zaynab Herman APRN.CNP Work Phone: [facility] Comment on above: Flank pain (Primary Dx) Start: 07-12-2022 End: 07-12-2022 Patient encounter procedure Luis TAYLOR Work Phone: [facility] Comment on above: URI, acute (Primary Dx) Start: 05-27-2022 End: 05-27-2022 [facility] Start: 04-29-2022 End: 04-29-2022 Patient encounter [...] Phone: Ambulatory Surgery Start: 04-02-2022 ambulatory Becky delgado PA-C Work Phone: [facility] Start: 04-02-2022 Follow-up encounter Becky Becerra PA-C Work Phone: [facility] Comment on above: Follow up from clean se Start: 04-01-2022 End: 04-01-2022 Subsequent hospital visit by physician [facility] Work Phone: Radiology Comment on above: Acute constipation [ K59.00] Start: 04-01-2022 End: 04-01-2022 Patient encounter procedure Becky Becerra PA-C Work Phone: [facility] Comment on above: Acute constipation ( Primary Dx); Generalized abdominal pain Start: 03-27-2022 End: 03-27-2022 Emergency department patient visit Dr. Donna Perdomo Work Phone: [facility]Emergency Department Start: 03-27-2022 End: 03-27-2022 Patient encounter procedure John Ramirez APRN.CNP Work Phone: [facility] Comment on above: Procedure not nilda d out (Primary Dx) Start: 02-23-2022 ambulatory Sarah Ozuna Work Phone: [facility] Start: 02-23-2022 Patient encounter procedure Sarah Pop MD Work Phone: OB/Gynecology Comment on above: Appointment problem calling Start: 02-05-2022 End: 02-05-2022 Emergency department patient visit Dr. Donna Perdomo Work Phone: [facility]Emergency Department Start: 01-12-2022 End: 01-13-2022 Emergency department patient visit Dr. Donna Perdomo Work Phone: [facility]Emergency [facility] Start: 01-12-2022 End: 01-13-2022 Non-patient / Non-visit Dr. Donna Perdomo Work Phone: [facility] Start: 12-22-2021 End: 12-22-2021 Subsequent hospital visit by physician Faustina [facility] Work Phone: Radiology Comment on above: Rib pain [R07.81] Start: 12-22-2021 End: 12-22-2021 Patient encounter procedure Louise Soriano APRN.SUPERVISOR TYPESETTING Work Phone: [facility] Comment on above: Rib pain (Primary Dx ); Injury of abdomen, initial encounter; Microscopic hematuria Start: 12-01-2021 End: 12-01-2021 Subsequent hospital visit by physician Faustina [facility] Work Phone: Radiology Comment on above: Acute pain of left l ower extremity [M79.605] Start: 12-01-2021 Telephone encounter Maya daniel APRN.SUPERVISOR TYPESETTING Work Phone: [facility] Comment on above: Results Orders Start: 12-01-2021 End: 12-01-2021 Patient encounter procedure Maya Puente APRN.SUPERVISOR TYPESETTING Work Phone: [facility] Comment on above: Acute pain of left l ower extremity (Primary Dx); Leg abrasion, left, initial encounter Start: 10-22-2021 ambulatory Sarah Ozuna Work Phone: OB/Gynecology Comment on above: CX post op., However . Start: 10-17-2021 End: 10-17-2021 Admission to same day surgery center RV SERVICER-C Dylan Velarde RV SERVICER Work Phone: [facility]Surgical Day Care Start: 10-16-2021 Telephone encounter Sarah montgomery MD Work Phone: OB/Gynecology Comment on above: Patient Update Start: 10-09-2021 End: 10-09-2021 Discharged Recurring RV SERVICER-C Dylan Velarde RV SERVICER [facility] Start: 10-09-2021 Registered Recurring RV SERVICER-C Dylan Velarde RV SERVICER [facility] Start: 10-01-2021 End: 10-01-2021 Patient encounter procedure Sarah Pop MD Work Phone: OB/Gynecology Comment on above: Pre-op exam (Primary Dx); LLOYD II (cervical intraepithelial neoplasia II) Start: 10-01-2021 End: 10-01-2021 Preprocedural examination done Sarah Pop MD Work Phone: OB/Gynecology Start: 09-16-2021 End: 09-16-2021 Patient encounter procedure RV SERVICER-C Dylan Velarde NP Work Phone: [facility] Start: 09-02-2021 ambulatory Sarah Ozuna Work Phone: OB/Gynecology Comment on above: Fax number for clear ance Start: 09-01-2021 ambulatory Sarah Ozuna Work Phone: [facility] Start: 09-01-2021 End: 09-01-2021 Patient encounter procedure [...] (Primary Dx) Start: 08-15-2021 Non-patient / Non-visit RV SERVICER-C Timo Velarde RV SERVICER Work Phone: [facility] Start: 08-15-2021 End: 08-15-2021 Emergency department patient visit RV SERVICER-C Dylan Velarde RV SERVICER Work Phone: [facility]Emer[facility] Start: 08-14-2021 ambulatory Tevin england MD Work Phone: General Surgery Comment on above: Mediport 6+ months c ausing pain Start: 08-12-2021 ambulatory Louise Flanagan APRN.CNM Work Phone: OB/Gynecology Comment on above: August Start: 08-06-2021 End: 08-06-2021 Patient encounter procedure [facility] Start: 07-24-2021 End: 07-24-2021 Manual pelvic examination Louise Flanagan APRN.CNM Work Phone: OB/Gynecology Comment on above: Pelvic pain in femal e (Primary Dx); Encounter for IUD removal; Acute cystitis with hematuria; PID (acute pelvic inflammatory disease) Start: 07-24-2021 End: 07-24-2021 Telemedicine consultation with patient Louise Flanagan APRN.CNM Work Phone: [facility] Start: 06-18-2021 End: 06-18-2021 [facility] Start: 06-13-2021 End: 06-13-2021 [facility] Start: 05-23-2021 End: 05-23-2021 [facility] Start: 12-24-2020 End: 12-24-2020 Office outpatient visit 25 minutes Dylan Velarde SUPERVISOR TYPESETTING Work Phone: [facility] Start: 11-12-2020 [...] department patient visit Jacobo Valenzuela Work Phone: [facility] Emergency Dept Comment on above: Feared complaint wit hout diagnosis (Primary Dx) Start: 10-07-2019 End: 10-08-2019 Evaluation and management of inpatient Khurram Kunz Work Phone: [facility] TELEMETRY Comment on above: Seizures (HCC) (Prim donald Dx) Start: 07-19-2019 End: 07-19-2019 Office outpatient visit 10 minutes Dylan Ambriz [facility] Start: 05-17-2019 End: 05-17-2019 Office outpatient visit 15 minutes Dylan Ambriz Internal Medicine Start: 03-29-2019 End: 03-29-2019 Office outpatient visit 15 minutes Dylan Ambriz Internal Medicine Start: 03-08-2019 End: 03-08-2019 Office outpatient visit 15 minutes Dylan Ambriz [facility] Start: 12-06-2018 End: 12-06-2018 Office outpatient visit 15 minutes Dylan Ambriz [facility] Start: 11-14-2018 End: 11-14-2018 Phone Encounter Dylan Ambriz [employer] [facility] Medicine Start: 10-25-2018 End: 10-25-2018 Annotation/Addendum Dylan Velarde [facility] Start: 10-25-2018 End: 10-25-2018 Annotation/Addendum Dylan Velarde [facility] Start: 10-24-2018 End: 10-24-2018 Annotation/Addendum Dylan Ambriz [employer] [facility] Medicine Start: 10-24-2018 End: 10-24-2018 Office outpatient visit 15 minutes Dylan Ambriz Internal Medicine Start: 07-12-2018 Patient encounter procedure Dylan Ambriz Internal Med Start: 05-05-2018 End: 05-05-2018 Lab Order Dylan Ambriz [employer] [facility] Start: 03-08-2018 End: 03-08-2018 Office outpatient visit 15 minutes Dylan Ambriz [facility] Start: 02-18-2018 End: 02-18-2018 Annotation/Addendum Dylan Ambriz [employer] [facility] Start: 02-11-2018 End: 02-11-2018 Office outpatient visit 25 minutes Dylan Ambriz [facility] Start: 02-07-2018 End: 02-07-2018 Office outpatient visit 15 minutes Dylan Ambriz [facility] Start: 01-26-2018 End: 01-26-2018 Annotation/Addendum Dylan Ambriz [employer] [facility] Start: 01-24-2018 End: 01-24-2018 Office outpatient visit 25 minutes Dylan Ambriz [facility] Start: 12-24-2017 End: 12-24-2017 Office outpatient visit 25 minutes Dylan Ambriz [facility] Start: 12-23-2017 End: 12-23-2017 Office outpatient visit 25 minutes Dylan Velarde [facility] Start: 11-30-2017 End: 11-30-2017 Office outpatient visit 15 minutes Dylan Ambriz [facility] Start: 08-24-2017 End: 08-24-2017 Emergency department patient visit BHUPENDRA CANDELARIA [facility] Start: 08-03-2017 End: 08-03-2017 Office outpatient visit 15 minutes Dylan Ambriz [facility] Start: 06-04-2017 End: 06-04-2017 Phone Encounter Dylan Ambriz [employer] [facility] Start: 05-31-2017 End: 05-31-2017 Office outpatient visit 15 minutes Dylan Ambriz [facility] Start: 03-02-2017 End: 03-02-2017 Office outpatient visit 15 minutes Dylan Ambriz [facility] Start: 02-10-2017 End: 02-10-2017 Office outpatient visit 25 minutes Dylan Velarde [facility] Start: 12-17-2016 End: 12-17-2016 Emergency department patient visit [facility] Facility:[facility] Start: 05-19-2016 End: 05-19-2016 Office outpatient visit 15 minutes Dylan esa [facility] Start: 03-06-2016 End: 03-09-2016 Office outpatient visit 5 minutes Dylan Ciesa [facility] Start: 03-04-2016 End: 03-04-2016 Office outpatient visit 5 minutes Dylan esa [facility] Start: 01-31-2016 End: 01-31-2016 Office outpatient visit 15 minutes Dylan esa [facility] Start: 10-10-2015 End: 10-10-2015 Office outpatient visit 10 minutes Dylan esa [facility] Start: 08-30-2015 End: 08-30-2015 Office outpatient visit 15 minutes Dylan esa [facility] Start: 08-09-2015 End: 08-09-2015 Office outpatient visit 15 minutes Dylan esa [facility] Start: 06-28-2015 End: 06-28-2015 Office outpatient visit 25 minutes Dylan esa [facility] Start: 05-31-2015 End: 05-31-2015 Office outpatient visit 40 minutes Dylan esa [facility] Start: 05-29-2015 End: 05-29-2015 [facility] Start: 03-01-2015 End: 03-01-2015 Office outpatient visit 15 minutes Dylan esa [facility] Start: 02-26-2015 End: 02-26-2015 Office outpatient new 45 minutes Dylan esa [facility] Procedures Date Procedure Procedure Detail Performing Clinician Start: 01-27-2025 Urnls dip stick/tablet reagent auto microscopy Dr. Leander Patel MD Work Phone: Start: 01-27-2025 CT of head without contrast Dr. Leander Patel MD Work Phone: Start: 01-27-2025 Radiologic exam chest [address] Leander Patel MD Work Phone: Start: 01-18-[address] Leander Patel MD Work Phone: Comment on above: Test Ordered: [id number] Zonisamide(Zonegran ), SerumZonisamide 22.8 ug/mL BN Reference Range: 10.0-40.0 Detection Limit = 2.0Performed at: [facility] [address] [id number] Director: Dakota Beal MD, Phone: [phone] at: [facility] [place] [id number], [place] [id number] Director: Nicolas Fleming PhD, Phone: [phone] Start: 01-11-2025 SARS-CoV-2, Influenza & RSV (PCR) Dr. Leander Patel MD Work Phone: Start: 11-04-2024 Urnls dip stick/tablet reagent auto microscopy Dr. Donna Perdomo MD Work Phone: Start: 11-04-[address] Donna Perdomo MD Work Phone: Start: 10-13-2024 X-ray of chest, PA and [...] 02-12-2023 Albumin serum plasma/whole blood Renee Donald MACHINERY MOVER-SUPERVISOR TYPESETTING Work Phone: Start: 02-12-2023 CBC AND ELECTRONIC DIFF Renee Shrestha r MACHINERY MOVER-SUPERVISOR TYPESETTING Work Phone: Start: 02-12-2023 Complete blood count with white cell differential, automated Renee Donald MACHINERY MOVER-SUPERVISOR TYPESETTING Work Phone: Start: 11-02-2022 Assay of magnesium [...] Department Summary Procedure Note: See Note; NOTES: [facility] Medical Records Department [address] [place] [address] Emergency Department Summary 09/07/22 MR#: [id number] Acct: [id number] Name: DOUG FLANAGAN Rep #: [id number] : 1990 32 From: Brain Del Castillo MD PCP: Dr. Donna Perdomo MD Status:REG ER Location: ED HPI History of Present Illness Chief Complaint: Nausea/Vomiting Detail of Chief Complaint: Chest discomfort, shortness of breath, motor activity without loss of consc Informant: patient and family ([id number]) Onset/Context/Timing Onset: Today Context: Sudden Onset Timing: [...] is not normal for her with seizure. [facility] states she was not postictal. She also [...] received recent therapy. This was performed at [facility]. Patient's next dose of medication is in [...] Prior similar symptoms: No Recent Illness/Hospitalization: Yes [facility] Medical History Anemia Chest pain Difficulty chewing [...] 77.3 H Lymph % (Auto) 15.0 L Bosque % (Auto) 5.8 Eos % (Auto) 1.1 [...] 16:38 EDT Reading Location ID and State: [facility] / [place] , Service support , Treatment and Re-Evaluation :: Patient's heart [...] your Primary Care Provider. Call [facility] ([phone]) or report to the closest Emergency Room. Call 911 if necessary. 09/07/22 1835 <Electronically signed by Brain Del Castillo MD> Cosigner Signature (if applicable): CC: Dr. Donna Perdomo MD Signed Dylan Velarde Work Phone: Start: 09-07-2022 End: 09-07-2022 Chest PA and Lateral Procedure Note: See Note; NOTES: [facility] Imaging Services [address] [place] [address] Chest PA and Lateral MR#: [id number] Acct: [id number] Name: DOUG FLANAGAN Rep #: [id number] : 1990 F 32 From: Siva Ozuna PCP: Dr. Donna Perdomo MD Status: REG ER Study: Chest PA and Lateral Date of Exam: 09/07/22 Exam# [id number] Ordering Dr: Brain Del Castillo MD EXAM: [...] 16:38 EDT Reading Location ID and State: [facility] / [place] , Service support , CC: Dr. Donna Perdomo MD; Dr. Brain Del Castillo MD Resource Room Teacher: Signed Dylan Velarde Work Phone: Start: 09-07-2022 Plain chest X-ray Start: 08-08-2022 End: 08-08-2022 Emergency Department Summary Procedure Note: See Note; NOTES: [facility] Medical Records Department [address] [place] [address] Emergency Department Summary 08/08/22 MR#: [id number] Acct: [id number] Name: DOUG FLANAGAN Rep #: [id number] : 1990 31 From: Sai Wilson PCP: Dr. Donna Perdomo MD Status:DEP ER [...] hospitalization for the past 10 days at [facility]. She finished plasmapheresis yesterday prior to discharge [...] incontinence of urine. Prior similar symptoms: Yes PFSH [facility] Medical History Anemia Chest pain Difficulty chewing [...] mg tablet (Lexapro) 10 mg PO QHS 06/09/22 [History Last Taken Unknown] diazepam 10 mg/spray [...] 85.0 H Lymph % (Auto) 8.1 L Bosque % (Auto) 5.0 Eos % (Auto) 0.9 [...] Clarity Clear Urine pH 8.0 Ur Specific Bluebell 1.015 Urine Protein Negative Urine Glucose (UA) [...] your Primary Care Provider. Call [facility] ([phone]) or report to the closest Emergency Room. Call 911 if necessary. 08/08/22 1616 <Electronically signed by Sai Wilson> Cosigner Signature (if applicable): CC: Dr. Donna Perdomo MD; Dr. Gerald Gilmore MD Signed Dylan Velarde Work Phone: Start: 08-07-2022 RF Guidance for removal of tunneled CV catheter Perla Cantor MD Work Phone: Start: 08-07-2022 Comprehensive metabolic panel Vinuth Vivebiouru DO Work Phone: Start: 08-06-2022 [facility] Work Phone: Start: 08-05-2022 Comprehensive [facility] V[facility] Work Phone: Start: 08-04-2022 Comprehensive metabolic panel Vinuth Koduru DO Work Phone: Start: 08-04-2022 Drug screen quantitative lamotrigine Juliana Tavares MD Work Phone: Start: 08-03-2022 Comprehensive metabolic panel Vinuth Koduru DO Work Phone: Start: 08-02-2022 Drug screen quantitative oxcarbazepine Juliana Tavares MD Work Phone: Start: 08-02-2022 Glucose quantitative blood xcpt reagent strip Ward Zhao DO Work Phone: Start: 04-02-2023 Comprehensive metabolic panel [employer] DO Work Phone: Start: 08-01-2022 End: 08-01-2022 Mri brain brain stem w/o w/contrast material Josemanuel Le MD Work Phone: Start: 08-01-2022 Comprehensive metabolic panel [employer] DO Work Phone: Start: 07-31-2022 NEGATIVE INSPIRATORY FORCE Juliana Tavares MD Work Phone: Start: 07-31-2022 Comprehensive metabolic panel [employer] Work Phone: Start: 07-30-2022 Hepatitis b surf antibody hbsab Preti Sakshi SALGADO Work Phone: Start: 07-30-2022 Iaad ia hepatitis b surface antigen Preti Sakshi SALGADO Work Phone: Start: 07-30-2022 Radiologic exam chest 2 views Edwigedottie Bob PA-C Work Phone: Start: 07-30-2022 Ecg routine ecg w/least 12 lds trcg only w/o i&r Edwige Crock PA-C Work Phone: Start: 07-30-2022 Basic metabolic panel calcium total Edwige Crock PA-C Work Phone: Start: 07-30-2022 IR CVC TUNNELED DIALYSIS CATHETER PLACEMENT Preti Sakshi SALGADO Work Phone: Start: 07-30-2022 Blood count complete automated Virgil Valverde MD Work Phone: Start: 07-17-2022 End: 07-17-2022 Chest PA and Lateral Procedure Note: See Note; NOTES: [facility] Imaging Services [address] [place] [address] Chest PA and Lateral MR#: [id number] Acct: [id number] Name: DOUG FLANAGAN Rep #: [id number] : 1990 F 31 From: Siva Ozuna PCP: Dr. Donna Perdomo MD Status: REG ER Study: Chest PA and Lateral Date of Exam: 07/17/22 Exam# [id number] Ordering Dr: Lesly Posada MD EXAM: XR CHEST, 2 VIEWS CLINICAL INDICATION: pain TECHNIQUE: Frontal and lateral views of the chest. This report was created using [employer] report generation technology. COMPARISON: 05.27.22 FINDINGS: LUNGS [...] 17:38 EDT Reading Location ID and State: [facility] / [place] , Service support , CC: Dr. Donna Perdomo MD; Dr. Lesly Posada MD Resource Room Teacher: Signed Dylan Velarde Work Phone: Start: 07-17-2022 Plain chest X-ray Start: 07-17-2022 End: 07-17-2022 Abdomen/Pelvis W IV Cont ONLY Procedure Note: See Note; NOTES: [facility] Imaging Services [address] [place] [address] Abdomen/Pelvis W IV Cont ONLY MR#: [id number] Acct: [id number] Name: DOUG FLANAGAN Rep #: [id number] : 1990 F 31 From: Siva Ozuna PCP: Dr. Donna Perdomo MD Status: REG ER Study: Abdomen/Pelvis W IV Cont ONLY Date of Exam: Exam# [id number] Ordering Dr: Lesly Posada MD STUDY: CT [...] 18:34 EDT Reading Location ID and State: [facility] / [place] , Service support , CC: Dr. Donna Perdomo MD; Dr. Lesly Posada MD Resource Room Teacher: Signed Dylan Velarde Work Phone: Start: 07-17-2022 Computed tomography of abdomen and pelvis with intravenous contrast Start: 07-17-2022 End: 07-17-2022 Emergency Department Summary Procedure Note: See Note; NOTES: [facility] Medical Records Department [address] [place] [address] Emergency Department Summary 07/17/22 MR#: [id number] Acct: [id number] Name: DOUG FLANAGAN Rep #: [id number] : 1990 31 From: Lesly Posada MD [...] checked her temperature. She denies urinary symptoms. [facility] Medical History Anemia Chest pain Difficulty chewing [...] % (Auto) 68.4 Lymph % (Auto) 22.2 Bosque % (Auto) 7.0 Eos % (Auto) 1.5 [...] Clarity Clear Urine pH 5.0 Ur Specific Bluebell 1.010 Urine Protein Negative Urine Glucose (UA) [...] (Auto) Neut % (Auto) Lymph % (Auto) Bosque % (Auto) Eos % (Auto) Baso % [...] Color Urine Clarity Urine pH Ur Specific Bluebell Urine Protein Urine Glucose (UA) Urine Ketones [...] your Primary Care Provider. Call [facility] ([phone]) or report to the closest Emergency Room. Call 911 if necessary. 07/17/222138 <Electronically signed by Lesly Posada MD> Cosigner Signature (if applicable): CC: Dr. Donna Perdomo MD Signed Dylan Velarde Work Phone: Start: 07-17-2022 End: 07-20-2022 12 Lead EKG Procedure Note: See Note; NOTES: [facility] Cardiovascular Services [address] [place] [address] 12 Lead EKG 07/17/22 1629 MR#: [id number] Acct: [id number] Name: DOUG FLANAGAN Rep #: [id number] : 1990 31 From: Yoly Rand MD [...] Abnormal ECG Confirmed by SVITLANA SALGADO, PEREZ ([id number]), photography editor SALOME MENJIVAR ([id number]) on 07/20/2022 12:28:24 PM Referred By: Confirmed By:MARINA RAND MD 07/20/22 1228 Date Yoly Rand MD CC: Dr. Donna Perdomo MD; Dr. Lesly Posada MD Signed Dylan Velarde Work Phone: Start: 05-27-2022 End: 05-27-2022 Emergency Department Summary Procedure Note: See Note; NOTES: [facility] Medical Records Department [address] [place] [address] Emergency Department Summary 05/27/22 MR#: [id number] Acct: [id number] Name: DOUG FLANAGAN Rep #: [id number] : 1990 31 From: Shauna Peck DO [...] headache. No other complaints at this time. [facility] Medical History Anemia Chest pain Difficulty chewing [...] shoulder. No pinpoint area of tenderness. Normal qa intern strength bilaterally. Neuro oriented x3, CN's II-XII [...] improving. She is given a dose of Lucerne for further muscle skeletal pain and is prescribed a short course of Lucerne as well as meclizine for her symptoms. [...] (Auto) 70.1 H Lymph % (Auto) 20.2 Bosque % (Auto) 7.4 Eos % (Auto) 1.5 [...] Color Urine Clarity Urine pH Ur Specific Bluebell Urine Protein Urine Glucose (UA) Urine Ketones Urine Occult Blood Urine Nitrite Urine Bilirubin Urine Urobilinogen Ur Leukocyte Esterase Urine RBC Urine WBC Ur Squamous Epith Cells Urine Bacteria Urine Mucus 05/27/22 05/27/22 11:15 11:30 WBC RBC Hgb Hct MCV MCH MCHC RDW Std Deviation RDW Coeff of Mariella Plt Count MPV Immature Gran % (Auto) Neut % (Auto) Lymph % (Auto) Bosque % (Auto) Eos % (Auto) Baso % [...] Sl. Cloudy Urine pH 8.0 Ur Specific Bluebell 1.010 Urine Protein Negative Urine Glucose (UA) [...] Perdomo MD [Primary Care Provider] - Duong Calle MD [Med Staff - Active Staff] - 3-5 Days if not improving Disposition Disposition: Home, Self Care Discharge Date/Time: 05/27/22 16:17 What to do if you have Problems For any increased pain, shortness of breath, bleeding, nausea or vomiting, chest pain, or any unexpected problems, contact your Primary Care Provider. Call [facility] ([phone]) or report to the closest Emergency Room. Call 911 if necessary. 05/27/22 1702 <Electronically signed by Shauna Peck DO> Cosigner Signature (if applicable): CC: Dr. Donna Perdomo MD Signed Dylan Velarde Work Phone: Start: 05-27-2022 End: 05-27-2022 Brain/Head without Contrast Procedure Note: See Note; NOTES: [facility] Imaging Services [address] [place] [address] Brain/Head without Contrast MR#: [id number] Acct: [id number] Name: DOUG FLANAGAN Rep #: [id number] : 1990 F 31 From: Mitchel vieira MD PCP: Dr. Donna Perdomo MD Status: REG ER Study: Brain/Head without Contrast Date of Exam: 05/04 09/22 Exam# [id number] Ordering Dr: Shauna Peck DO STUDY: CT [...] Shauna Peck DO; Dr. Donna Perdomo MD Resource Room Teacher: Signed Dylan Velarde Work Phone: Start: 05-27-2022 End: 05-27-2022 Chest 1 View (Portable) Procedure Note: See Note; NOTES: [facility] Imaging Services [address] [place] [address] Chest 1 View (Portable) MR#: [id number] Acct: [id number] Name: DOUG FLANAGAN Rep #: [id number] : 1990 F 31 From: Mitchel vieira MD PCP: Dr. Donna Perdomo MD Status: REG ER Study: Chest 1 View (Portable) Date of Exam: 05/27/22 Exam# [id number] Ordering Dr: Shauna Peck DO STUDY: X-RAY [...] Shauna Peck DO; Dr. Donna Perdomo MD Resource Room Teacher: Signed Dylan Velarde Work Phone: Start: 05-27-2022 CT cervical spine without contrast Start: 05-27-2022 CT of head without contrast Start: 05-27-2022 Plain chest X-ray Start: 05-27-2022 End: 05-27-2022 Spine Cervical without Contras Procedure Note: See Note; NOTES: [facility] Imaging Services [address] [place] [address] Spine Cervical without Contras MR#: [id number] Acct: [id number] Name: DOUG FLANAGAN Rep #: [id number] : 1990 F 31 From: Mitchel vieira MD PCP: Dr. Donna Perdomo MD Status: REG ER Study: Spine Cervical without Contras Date of Exam: 0 05/27/22 Exam# [id number] Ordering Dr: Shauna Peck DO STUDY: CT [...] 12:00 EST Reading Location ID and State: [facility] / [place] , Service support , CC: Dr. Shauna Peck DO; Dr. Donna Perdomo MD Resource Room Teacher: Signed Dylan Velarde Work Phone: Start: 05-27-2022 End: 05-27-2022 HIP, UNI W/ Pelvis 2-3 Views Procedure Note: See Note; NOTES: [facility] Imaging Services [address] [place] [address] HIP, UNI W/ Pelvis 2-3 Views MR#: [id number] Acct: [id number] Name: DOUG FLANAGAN Rep #: [id number] : 1990 F 31 From: Mitchel vieira MD PCP: Dr. Donna Perdomo MD Status: [facility] ER Study: HIP, UNI W/ Pelvis 2-3 Views Date of Exam: Exam# [id number] Ordering Dr: Shauna Peck DO STUDY: X-RAY [...] Shauna Peck DO; Dr. Donna Perdomo MD Resource Room Teacher: Signed Dylan Velarde Work Phone: Start: 05-27-2022 Plain x-ray of pelvis and lower extremity Start: 05-27-2022 Plain X-ray of shoulder Start: 05-27-2022 End: 05-27-2022 Shoulder min 2 Views Procedure Note: See Note; NOTES: [facility] Imaging Services [address] [place] [address] Shoulder min 2 Views MR#: [id number] Acct: [id number] Name: DOUG FLANAGAN Rep #: [id number] : 1990 F 31 From: Mitchel vieira MD PCP: Dr. Donna Perdomo MD Status: REG ER Study: Shoulder min 2 Views Date of Exam: 05/27/22 Exam# [id number] Ordering Dr: Shauna Peck DO STUDY: X-RAY [...] at 12:21 EST , CC: Dr. Shauna Peck DO; Dr. Donna Perdomo MD Resource Room Teacher: Signed Dylan Velarde Work Phone: Start: 04-29-2022 [...] without Cont Procedure Note: See Note; NOTES: [facility] Imaging Services [address] [place] [address] Abdomen/Pelvis without Cont MR#: [id number] Acct: [id number] Name: DOUG FLANAGAN Rep #: [id number] : 1990 F 31 From: Patrick velez MD PCP: Dr. Donna Perdomo MD Status: REG ER Study: Abdomen/Pelvis without Cont Date of Exam: 03/04 09/21 Exam# [id number] Ordering Dr: Jhon Priest DO STUDY: CT [...] Signed: Patrick Quiroz MD at 11:57 EST , CC: Dr. Donna Perdomo MD; Dr. Jhon Priest DO Resource Room Teacher: Signed Dylan Velarde Work Phone: Start: 03-27-2022 CT of abdomen and pelvis without contrast Dr. Donna Perdomo Work Phone: Start: 03-27-2022 End: 03-27-2022 Emergency Department Summary Procedure Note: See Note; NOTES: [facility] Medical Records Department [address] [place] [address] Emergency Department Summary 03/27/22 MR#: [id number] Acct: [id number] Name: DOUG FLANAGAN Rep #: [id number] : 1990 31 From: Jhon Priest DO [...] menstrual period was approximately 1-1/2 weeks ago. [facility] Medical History Anemia Chest pain Difficulty chewing [...] her findings. Patient was instructed to use igkd-fdu-lwxdpet laxatives to help with the constipation. Patient [...] % (Auto) 67.3 Lymph % (Auto) 22.8 Bosque % (Auto) 6.9 Eos % (Auto) 2.2 [...] Sl. Cloudy Urine pH 6.0 Ur Specific Bluebell 1.020 Urine Protein 30 H Urine Glucose [...] (Auto) Neut % (Auto) Lymph % (Auto) Bosque % (Auto) Eos % (Auto) Baso % [...] Color Urine Clarity Urine pH Ur Specific Bluebell Urine Protein Urine Glucose (UA) Urine Ketones [...] 11:57 EST Reading Location ID and State: [facility] / [place] , Service support , Discharge Plan Triage [...] your Primary Care Provider. Call [facility] ([phone]) or report to the closest Emergency Room. Call 911 if necessary. 03/27/22 7519 <Electronically signed by Jhon Priest DO> Cosigner Signature (if applicable): CC: Dr. Donna Perdomo MD Signed Dylan Velarde Work Phone: Start: 02-05-2022 End: 02-05-2022 Emergency Department Summary Procedure Note: See Note; NOTES: [facility] Medical Records Department [address] [place] [address] Emergency Department Summary 02/05/22 MR#: [id number] Acct: [id number] Name: DOUG FLANAGAN Rep #: [id number] : 1990 31 From: Kojo Lewis DO [...] myasthenia gravis and sees started recently on January 27 on Ultomiris for this. She had [...] and oriented within a minute or so [facility] Medical History Anemia Chest pain Difficulty chewing [...] % (Auto) 69.1 Lymph % (Auto) 23.0 Bosque % (Auto) 5.9 Eos % (Auto) 1.4 [...] (Reason: pain) 7 Days Qty: 5 0RF Kimberlytomiris Primary Care Provider: Donna Perdomo Referrals: Donna Perdomo MD [Primary Care Provider] - Disposition Disposition: Home, Self Care What to do if you have Problems For any increased pain, shortness of breath, bleeding, nausea or vomiting, chest pain, or any unexpected problems, contact your Primary Care Provider. Call [facility] ([phone]) or report to the closest Emergency Room. Call 911 if necessary. 02/05/22 1857 <Electronically signed by Kojo Lewis DO> Cosigner Signature (if applicable): CC: Dr. Donna Perdomo MD Signed Dylan Velarde Work Phone: Start: 02-05-2022 End: 02-05-2022 Brain/Head without Contrast Procedure Note: See Note; NOTES: [facility] Imaging Services [address] [place] [address] Brain/Head without Contrast MR#: [id number] Acct: [id number] Name: DOUG FLANAGAN Rep #: [id number] : 1990 F 31 From: Tessie roberts MD PCP: Dr. Donna Perdomo MD Status: [facility] Study: Brain/Head without Contrast Date of Exam: 10/22 Exam# [id number] Ordering Dr: Kojo Lewis DO STUDY: CT [...] Signed: Tessie Peacock MD at 17:38 EDT , CC: Dr. Donna Perdomo MD; Dr. Kojo Lewis DO Resource Room Teacher: Signed Dylan Velarde Work Phone: Start: 02-05-2022 CT of head without contrast Dr. Donna Perdomo Work Phone: Start: 01-12-2022 End: 01-12-2022 Chest 1 View (Portable) Procedure Note: See Note; NOTES: [facility] Imaging Services [address] [place] [address] Chest 1 View (Portable) MR#: [id number] Acct: [id number] Name: DOUG FLANAGAN Rep #: [id number] : 1990 F 31 From: Chuy Farias DO PCP: Dr. Donna Perdomo MD Status: [facility] ER Study: Chest 1 View (Portable) Date of Exam: 01/12/22 Exam# [id number] Ordering Dr: Kojo Lewis DO STUDY: X-RAY [...] Donna Perdomo MD; Dr. Kojo Lewis DO Resource Room Teacher: Signed Dylan Velarde Work Phone: Start: 01-12-2022 Plain chest X-ray Dr. Donna Perdomo Work Phone: Start: 01-12-2022 End: 01-13-2022 Emergency Department Summary Procedure Note: See Note; NOTES: [facility] Medical Records Department [address] [place] [address] Emergency Department Summary 01/12/22 MR#: [id number] Acct: [id number] Name: DOUG FLANAGAN Rep #: [id number] : 1990 31 From: Kojo Lewis DO [...] Eliquis due to history of blood clots. [facility] Medical History Anemia Chest pain Difficulty chewing [...] % (Auto) 69.8 Lymph % (Auto) 21.4 Bosque % (Auto) 6.7 Eos % (Auto) 1.3 [...] your Primary Care Provider. Call [facility] ([phone]) or report to the closest Emergency Room. Call 911 if necessary. 01/13/22 0027 <Electronically signed by Kojo Lewis DO> Cosigner Signature (if applicable): CC: Dr. Donna Perdomo MD Signed Dylan Velarde Work Phone: Start: 01-12-2022 End: 01-13-2022 12 Lead EKG Procedure Note: See Note; NOTES: [facility] Cardiovascular Services [address] [place] [address] 12 Lead EKG 01/12/222107 MR#: [id number] Acct: [id number] Name: DOUG FLANAGAN Rep #: [id number] : 1990 31 From: Zina Randhawa MD Attending Dr: Status: DEP ER Ordering Dr: Denver Ratliff P. Date: 01/12/22 Location: ED Sex: F [...] Abnormal ECG Confirmed by JEREMI SALGADO, ZINA ([id number]), photography editor SALOME MENJIVAR ([id number]) on 01/13/2022 9:24:39 AM Referred By: TL Confirmed By:ZINA RANDHAWA MD 01/13/22923 Date Zina Randhawa MD CC: Dr. Donna Perdomo MD; Dr. Kojo Joshua, DO; ED PHYSICIAN PROVIDER Signed Dylan Velarde Work Phone: Start: 12-22-2021 Urnls dip stick/tablet rgnt auto w/o microscopy Louise Soriano MACHINERY MOVER.[facility] Work Phone: Start: 12-22-2021 Radex ribs uni w/posteroant ch minimum 3 views Louisemilena Berkowitzgs MACHINERY MOVER.[employer] Work Phone: Start: 12-01-2021 Dup-scan xtr veins unilateral/limited study Maya Puente MACHINERY MOVER.[employer] Work Phone: Start: 12-01-2021 Radex foot complete minimum 3 views Maya Puente MACHINERY MOVER.[facility] Work Phone: Start: 10-17-2021 End: 10-17-2021 Operative Report Comments: See Note; NOTES: [facility] Medical Records Department [address] [place] [address] Operative Report 10/17/21 1225 MR#: [id number] Acct: [id number] Name: DOUG FLANAGAN Rep #: [id number] : 1990 31 From: Sarah Pop DO PCP: Dr. Donna Perdomo MD Status:[facility] Location: [place] [address] Problems Associated Problem List Diagnoses (1) LLOYD [...] noted with Lugol solution. Surgeon: Sarah Pop detective automobile section: None Type of Anesthesia: MAC Special Medications: [...] Start: 10-17-2021 Dilation and curettage of uterus RV SERVICER-C Dylan Velarde NP Work Phone: Start: 10-17-2021 End: 10-17-2021 Discharge Instruction Comments: See Note; NOTES: [facility] Medical Records Department [address] [place] [address] Instructions for Home/Discharge Instructions 10/17/21 1121 MR#: [id number] Acct: [id number] Name: DOUG FLANAGAN Rep #: [id number] : 1990 31 From: Sarah Pop DO PCP: Dr. Donna Perdomo MD Status:REG [facility] Discharge Instructions Diet Discharge Diet: No restrictions [...] (1) - PT Comments: See Note; NOTES: [facility] Physical Therapy [facility] [address] [place] [address] [address] [place] [address] / REHABILITATION SERVICES INITIAL EVALUATION MR#: [id number] Acct: [id number] Name: DOUG FLANAGAN Rep #: [id number] : 1990 31 From: Jhon Ornelas DPT, OCS, CSCS Referring Dr.: Dr. Gerald Gilmore MD Status: REG [facility] Insurance: [facility] SELF PAY INSURANCE Patient's Visit Information DOUG FLANAGAN is a 31 year old F referred to Physical Therapy by Dr. Gerald Gilmore MD with a diagnosis of falls , debility, myasthenia gravis.. 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 Not worked in a year. 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 Putting hair up wears arms out. Seizures: since 11(maybe bad concussion), on meds since 11. Lives alone but stays with parents when in flare. Has 3 steps at her house which are fatiguing. Exercises; wants to run but legs don't do that anymore. I walk [employer] or [employer] but cannot make it around sometimes. Yoga daily. - Objective Walks I into PT easily. Traser chair with UE I today. Bed transfers [...] to be FAXED BACK to us at [phone] for Medicare purposes. For Medicare only, by signing this I certify the plan of care. Please let me know if there are questions or concerns regarding this plan of care. Physician Signature: Date: <Electronically signed by Jhon Ornelas DPT, OCS, CSCS> 10/01/21 1453 CC: RV SERVICER-C Dylan Velarde; Dr. Gerald Gilmore MD EBG Signed Dylan Velarde Work Phone: Start: 08-20-2021 Urine test visual color cmprsn meths Sarah Pop MD Work Phone: Start: 08-15-2021 End: 08-15-2021 Venous Duplex US, Unilateral Comments: See Note; NOTES: [facility] Cardiovascular Services [address] [place] [address] Venous Duplex US, Unilateral 08/15/21 1132 MR#: [id number] Acct: [id number] Name: DOUG FLANAGAN Rep #: [id number] : 1990 31 From: Arley Jama MD Attending Dr: Status: DEP ER Ordering Dr: Tevin Lopez DO Date: 08/15/21 Location: ED Sex: F [...] 08/15/21 1255 Date Arley Jama MD CC: RV SERVICERLd Velarde; Dr. Tevin Lopez DO Date Dictated: 08/15/21 1132 Date Transcribed: 08/15/21 1257 Resource Room Teacher: Signed Dylan Velarde Work Phone: Start: 08-15-2021 End: 08-16-2021 Emergency Department Summary Comments: See Note; NOTES: [facility] Medical Records Department [address] [place] [address] Emergency Department Summary 08/15/21 MR#: [id number] Acct: [id number] Name: DOUG FLANAGAN Rep #: [id number] : 1990 31 From: Tevin Lopez DO PCP: Dylan Velarde RV SERVICER-C Status:DEP ER Location: ED HPI History of [...] She has paresthesias in the right arm [facility] Medical History Anemia Chest pain Difficulty chewing [...] Provider: Dylan Velarde NP Referrals: Dylan Velarde RV SERVICER, RV SERVICER-C [Primary Care Provider] - Activity Restrictions/Additional Instructions: It is recommended that you follow-up with your vascular surgeon Disposition Disposition: Home, Self Care What to do if you have Problems For any increased pain, shortness of breath, bleeding, nausea or vomiting, chest pain, or any unexpected problems, contact your Primary Care Provider. Call [facility] ([phone]) or report to the closest Emergency Room. Call 911 if necessary. 08/16/21 0656 <Electronically signed by Tevin Lopez DO> Cosigner Signature (if applicable): CC: RV SERVICERLd Velarde Signed Dylan Velarde Work Phone: Start: 08-15-2021 End: 08-15-2021 Chest 1 View (Portable) Comments: See Note; NOTES: [facility] Imaging Services [address] [place] [address] Chest 1 View (Portable) MR#: [id number] Acct: [id number] Name: DOUG FLANAGAN Rep #: [id number] : 1990 F 31 From: Mitchel vieira MD PCP: BECCA Angulo Status: PRE ER Study: Chest 1 View (Portable) Date of Exam: 08/15/21 Exam# [id number] Ordering Dr: Tevin Lopez DO STUDY: X-RAY [...] Mitchel Conrad MD at 11:15 EDT , CC: BECCA Velarde; Dr. Tevin Lopez DO Resource Room Teacher: Signed Dylan Velarde Work Phone: Start: 08-15-2021 Plain chest X-ray RV SERVICER-Robert Velarde RV SERVICER Work Phone: Start: 06-13-2021 Urine culture Start: 02-17-2021 End: 02-26-2021 Emergency Department Summary Comments: See Note; NOTES: [facility] Medical Records Department [address] [place] [address] Emergency Department Summary 02/17/21 MR#: [id number] Acct: [id number] Name: DOUG FLANAGAN Rep #: [id number] : 1990 30 From: Kojo Lewis DO [...] also on Soliris for her myasthenia gravis. [facility] Medical History Anemia Chest pain Difficulty chewing [...] 84.5 H Lymph % (Auto) 10.7 L Bosque % (Auto) 4.0 Eos % (Auto) 0.2 [...] your Primary Care Provider. Call [facility] ([phone]) or report to the closest Emergency Room. Call 911 if necessary. 02/18/215 <Electronically signed by Kojo Lewis DO> Cosigner Signature (if applicable): CC: Dr. Donna Perdomo MD Signed Dylan Velarde SUPERVISOR TYPESETTING Work Phone: Start: 02-17-2021 End: 02-21-2021 12 Lead EKG Comments: See Note; NOTES: [facility] Cardiovascular Services [address] [place] [address] 12 Lead EKG 02/17/21 2342 MR#: [id number] Acct: [id number] Name: DOUG FLANAGAN Rep #: [id number] : 1990 30 From: Compa Healy MD [...] T wave abnormality Abnormal ECG Confirmed by TEMI SALGADO, COMPA ([id number]), photography editor SALOME MENJIVAR ([id number]) on 02/18/2021 9:26:16 AM Referred By: DK Confirmed By:COMPA HEALY MD 02/18/21 0926 Date Compa Healy MD CC: Dr. Donna Perdomo MD; Dr. Kojo Lewis DO Signed Dylan Velarde SUPERVISOR TYPESETTING Work Phone: Start: 02-17-2021 End: 02-21-2021 Brain/Head without Contrast Comments: See Note; NOTES: [facility] Imaging Services [address] [place] [address] Brain/Head without Contrast MR#: [id number] Acct: [id number] Name: DOUG FLANAGAN Rep #: [id number] : 1990 F 30 From: Chris Limon MD PCP: Dr. Donna Perdomo MD Status: REG ER Study: Brain/Head without Contrast Date of Exam: 01/31 12/21 Exam# [id number] Ordering Dr: Kojo Lewis DO STUDY: CT BRAIN WITHOUT CONTRAST REASON FOR EXAM: Female, 30 years old. siezure RADIATION DOSAGE (If Supplied By Facility): CTDIvol = ( 44.99 ) mGy, DLP = ( 796.11 ) mGycm TECHNIQUE: Transaxial CT imaging of the brain was performed without administration of intravenous contrast material. Individualized dose optimization techniques were used for this CT. COMPARISON: MRI dated 11/02/2020 FINDINGS: There is no intra-/extra-axial fluid collection, mass effect, or midline shift. The gonzales/white matter junction is preserved. The basal cisterns are patent. Visualized paranasal sinuses and mastoid air cells are clear. The calvarium is intact. CT/Brain/Head without Contrast IMPRESSION: No acute intracranial finding. MRI may be obtained if clinically indicated. Electronically Signed: Chris Limon MD at 0:05 EDT Tel , Service support , CC: Dr. Donna Perdomo MD; Dr. Kojo Lewis DO Resource Room Teacher: Signed Dylan Velarde CNP Work Phone: Start: 02-17-2021 End: 02-21-2021 Chest 1 View (Portable) Comments: See Note; NOTES: [facility] Imaging Services [address] [place] [address] Chest 1 View (Portable) MR#: [id number] Acct: [id number] Name: DOUG FLANAGAN Rep #: [id number] : 1990 F 30 From: Chris Limon MD PCP: Dr. Donna Perdomo MD Status: REG ER Study: Chest 1 View (Portable) Date of Exam: 02/17/21 Exam# [id number] Ordering Dr: Kojo Lewis DO STUDY: X-RAY [...] Donna Perdomo MD; Dr. Kojo Lewis DO Resource Room Teacher: Signed Dylan Velarde ROLF Work Phone: Start: 11-02-2020 End: 11-02-2020 Brain/Head without Contrast Comments: See Note; NOTES: [facility] Imaging Services [address] [place] [address] Brain/Head without Contrast MR#: [id number] Acct: [id number] Name: DOUG FLANAGAN Rep #: [id number] : 1990 F 30 From: Jes Rider MD PCP: Dr. Donna Perdomo MD Status: REG ER Study: Brain/Head without Contrast Date of Exam: 07/21 Exam# [id number] Ordering Dr: Lesly Posada MD STUDY: CT [...] Donna Perdomo MD; Dr. Lesly Posada MD Resource Room Teacher: Signed Dylan Velarde ROLF Work Phone: Start: 11-02-2020 End: 07-03-2021 CTA Chest W/WO Contrast Comments: See Note; NOTES: [facility] Imaging Services [address] [place] [address] CTA Chest W/WO Contrast MR#: [id number] Acct: [id number] Name: DOUG FLANAGAN Rep #: [id number] : 1990 F 30 From: Jes Rider MD PCP: Dr. Donna Perdomo MD Status: REG ER Study: CTA Chest W/WO Contrast Date of Exam: 11/02/20 Exam# [id number] Ordering Dr: Lesly Posada MD STUDY: CTA [...] Donna Perdomo MD; Dr. Lesly Posada MD Resource Room Teacher: Signed Dylan Velarde ROLF Work Phone: Start: 10-25-2020 End: 10-25-2020 Venous Duplex US, Unilateral Comments: See Note; NOTES: [facility] Cardiovascular Services [address] [place] [address] Venous Duplex US, Unilateral 10/25/20 0818 MR#: [id number] Acct: [id number] Name: DOUG FLANAGAN Rep #: [id number] : 1990 30 From: Arley Jama MD [...] 10/25/20 1257 Date Arley Jama MD CC: RV SERVICER-C Dylan Velarde; Dr. Tevin Malcolm MD Date Dictated: 10/25/20817 Date Transcribed: 10/25/201256 Resource Room Teacher: Signed Dylan Velarde SUPERVISOR TYPESETTING Work Phone: Start: 10-16-2020 End: 10-16-2020 CXR for Line Placement Comments: See Note; NOTES: [facility] Imaging Services [address] [place] [address] CXR for Line Placement MR#: [id number] Acct: [id number] Name: DOUG FLANAGAN Rep #: [id number] : 1990 F 30 From: Mitchel vieira MD PCP: BECCA Anuglo Status: [facility] Study: CXR for Line Placement Date of Exam: 10/16/20 Exam# [id number] Ordering Dr: Tevin Malcolm MD STUDY: X-RAY [...] in the right upper lobe. Electronically Signed: Mitchel Conrad MD at 15:16 EDT , Service support , CC: RV SERVICER-C Dylan Velarde; Dr. Tevin Malcolm MD Resource Room Teacher: Signed Dylan Velarde CNP Work Phone: Start: 10-16-2020 End: 10-16-2020 Discharge Instruction Comments: See Note; NOTES: [facility] Medical Records Department [address] [place] [address] Instructions for Home/Discharge Instructions 10/16/20 1432 MR#: [id number] Acct: [id number] Name: DOUG FLANAGAN Rep #: [id number] : 1990 30 From: Tevin Malcolm MD PCP: BECCA Angulo Status:REG SDC Discharge Instructions Procedure Port-A-Cath Diet Discharge Diet: [...] Orders: Chest 1 View (Portable) (Routine) Facility: [facility] - Location: [facility] Ordered By: Dr. Tevin Malcolm Referrals / Follow Up: Dylan Velarde NP, DASHA-C [Primary Care Provider] - 10/16/20 1436<Electronically signed by Tevin Malcolm MD>Tevin Malcolm MD CC: RV SERVICER-C Dylan Velarde Signed Dylan Velarde SUPERVISOR TYPESETTING Work Phone: Start: 10-16-2020 End: 10-16-2020 Operative Report Comments: See Note; NOTES: [facility] Medical Records Department [address] [place] [address] Operative Report 10/16/20 1424 MR#: [id number] Acct: [id number] Name: DOUG FLANAGAN Rep #: [id number] : 1990 30 From: Tevin Malcolm MD PCP: BECCA Angulo Status:REG [facility] Location: [place] [address] Problems Associated Problem List Diagnoses (1) Vascular catheter fitting or adjustment: Report of Operation Date of Procedure: 10/16/20 Pre-Operative Diagnosis: Vascular fitting and adjustment Post-Operative Diagnosis: Same Surgery/Procedure Performed:: Placement of a right IJ PowerPort Surgeon: Tevin Malcolm detective automobile section: None Type of Anesthesia: MAC/Supplemental/Local Anesthesiologist: Monty [...] Malcolm MD> Cosigner Signature (if applicable): CC: RV SERVICERLd Velarde; Dr. Tevin Malcolm MD Signed Dylan Velarde SUPERVISOR TYPESETTING Work Phone: Start: 10-16-2020 End: 10-16-2020 History and Physical Exam Comments: See Note; NOTES: [facility] Medical Records Department [address] [place] [address] History Physical Exam 10/16/20 1336 MR#: [id number] Acct: [id number] Name: DOUG FLANAGAN Rep #: [id number] : 1990 30 From: Tevin Malcolm MD PCP: Dylan Velarde, RV SERVICER-C Status:REG [facility] Location: [place] [address] History and Physical Date of Admission: 10/16/20 [...] Laterality Date ??? APPENDECTOMY ? LEEP PROCEDURE (INSURANCE ADVISER DEPT)_*FL ? CURRENT MEDICATIONS Current Outpatient Medications [...] ? eculizumab (SOLIRIS INTRAVENOUS) Inject intravenously. ? L.acidoph-B.lactis-B.wolfu m (FLORAJEN3) 460 mg (7.5-6- 1.5 bill. [...] Planned Procedure: right Internal Jugular Portacath - [id number] ??? Patient Weight Last 1 Encounter Wt Readings: Date: Wt: 04/22/2020 66.2 kg (146 lb) ??? Antibiotic: clindamycin 900mg IVPB hotel casino floorperson to OR ??? Planned Anesthetic: MAC with [...] Malcolm MD> Cosigner Signature (if applicable): CC: BECCA Velarde; Dr. Tevin Malcolm MD Signed Dylan Velarde [facility] Work Phone: Start: 05-02-2020 End: 05-02-2020 Chest PA and Lateral Comments: See Note; NOTES: [facility] Imaging Services [address] [place] [address] Chest PA and Lateral MR#: [id number] Acct: [id number] Name: DOUG FLANAGAN Rep #: [id number] : 1990 F 29 From: Lauri Jimenez DO PCP: BECCA Angulo Status: REG ER Study: Chest PA and Lateral Date of Exam: 05/02/20 Exam# [id number] Ordering Dr: Vivek De Souza DO STUDY: [...] Lauri Jimenez DO at 23:33 EST Tel [phone], Service support , CC: BECCA Velarde; Dr. Vivek De Souza DO Resource Room Teacher: Signed Dylan Velarde Start: 05-02-2020 End: 05-03-2020 Emergency Department Summary Comments: See Note; NOTES: [facility] Medical Records Department [address] [place] [address] Emergency Department Summary 05/02/20 MR#: [id number] Acct: [id number] Name: DOUG FLANAGAN Rep #: [id number] : 1990 From: Vivek De Souza DO PCP: EBCCA Angulo Status:REG ER History of Present Illness [...] REACTION hallucinations Primary Care Physician: Dylan Velarde RV SERVICER, RV SERVICER-C [Primary Care Provider] - Prior records reviewed: [...] Dyspnea Instructions: ED Dyspnea Referrals: Dylan Velarde RV SERVICER, RV SERVICER-C [Primary Care Provider] - 1-2 Days if not improving What to do if you have Problems For any increased pain, shortness of breath, bleeding, nausea or vomiting, chest pain, or any unexpected problems, contact your Primary Care Provider. Call [employer] ([phone]) or report to the closest Emergency Room. Call 911 if necessary. 05/03/20 0018 <Electronically signed by Vivek De Souza DO> Date Vivek De Souza DO Cosigner Signature (If Indicated): Date CC: RV SERVICER-C Dylan Velarde Start: 05-02-2020 End: 05-06-2020 12 Lead EKG Comments: See Note; NOTES: [facility] Cardiovascular Services [address] [place] [address] 12 Lead EKG 05/02/20 2241 MR#: [id number] Acct: [id number] Name: DOUG FLANAGAN Rep #: [id number] : 1990 29 From: Compa Healy MD Attending Dr: Status: [...] ECG Confirmed by COMPA HEALY MD ([id number]), photography editor SALOME MENJIVAR ([id number]) on 05/06/2020 9:04:20 AM Referred By: WALLY Confirmed By:COMPA HEALY MD 05/06/20 0904 Date Compa Healy MD CC: RV SERVICER-C Dylan Velarde; Dr. Vivek De Souza DO Signed Dylan Velarde Start: 10-10-2019 End: 10-10-2019 Emergency Department Summary Comments: See Note; NOTES: [facility] Medical Records Department [address] [place] [address] Emergency Department Summary 10/10/19 MR#: [id number] Acct: [id number] Name: DOUG FLANAGAN Rep #: [id number] : 1990 29 From: Naomi Durbin DO PCP: LUCY AnguloC Status:REG ER - ER Visit Summary Date of Service: 10/10/19 Chief Complaint: [Nausea vomiting and dizziness] History of Present Illness: The patient is a 29 F [presents the emergency department with complaint of not feeling well for last several days. Patient states that she was recently admitted to this hospital 5 days ago for seizure and then was transferred over to [facility]. Patient had her Trileptal increased and was [...] rebound or rigidity, no peritoneal signs. Neuro vher-zascuw-va-nose and heel peters testing within normal limits, [...] [Vomiting Vertigo] This note was generated with [employer] software. It may contain incorrect words, spelling, and punctuation that were not noted in review of the chart prior to signing ED Disposition - Plan for ED Patient: Referrals: Dylan Velarde, LUCYC [Primary Care Provider] - What to do if you have Problems For any increased pain, shortness of breath, bleeding, nausea or vomiting, chest pain, or any unexpected problems, contact your Primary Care Provider. Call [facility] ([phone]) or report to the closest Emergency Room. Call 911 if necessary. 10/10/19 1500 <Electronically signed by Naomi Durbin DO> Date Naomi Durbin DO Cosigner Signature (If Indicated): Date CC: RV SERVICERLd Velarde Dylan Prachi Start: 10-08-2019 Basic metabolic panel calcium total [...] Emergency Department Summary Comments: See Note; NOTES: [facility] Medical Records Department [address] [place] [address] Emergency Department Summary 10/06/19 MR#: [id number] Acct: [id number] Name: DOUG FLANAGAN Rep #: [id number] : 1990 29 From: Jhon Priest DO [...] see her. The patient was transferred to [facility]. Patient was accepted to the service of Dr. Kunz. Mother and patient understood and were agreeable with the plan. All questions were answered. Disposition: Transfer to [facility] Impression: 1. Breakthrough seizures 2. History of myasthenia gravis This note was generated with [employer] software. It may contain incorrect words, spelling, and punctuation that were not noted in review of the chart prior to signing ED Disposition - Plan for ED Patient: Disposition: [facility] Diagnosis: Breakthrough seizure, Myasthenia Referrals: Dylan Velarde NP-C [Primary Care Provider] - What to do if you have Problems For any increased pain, shortness of breath, bleeding, nausea or vomiting, chest pain, or any unexpected problems, contact your Primary Care Provider. Call [facility] ([phone]) or report to the closest Emergency Room. Call 911 if necessary. 10/07/19 0011 <Electronically signed by Jhon Priest DO> Date Jhon Priest DO Cosigner Signature (If Indicated): Date CC: BECCA Velarde Start: 10-06-2019 End: 10-06-2019 Brain/Head without Contrast Comments: See Note; NOTES: [facility] Imaging Services [address] [place], [place] [address] [address] Brain/Head without Contrast MR#: [id number] Acct: [id number] Name: DOUG FLANAGAN Rep #: [id number] : 1990 F 29 From: Alfa Mast i, MD PCP: BECCA Angulo Status: REG ER Study: Brain/Head without Contrast Date of Exam: 09/19 Exam# [id number] Ordering Dr: Jhon Priest DO STUDY: CT [...] CC: BECCA Velarde; Dr. Jhon Priest DO Resource Room Teacher: Signed Dylan Velarde Start: 10-06-2019 End: 10-07-2019 Emergency Department Summary Comments: See Note; NOTES: [facility] Medical Records Department [address] [place] [address] Emergency Department Summary 10/06/19 MR#: [id number] Acct: [id number] Name: DOUG FLANAGAN Rep #: [id number] : 1990 29 From: Jhon Priest DO [...] Breakthrough seizure This note was generated with Dragon dictation software. It may contain incorrect words, [...] your Primary Care Provider. Call [facility] ([phone]) or report to the closest Emergency Room. Call 911 if necessary. 10/07/19 0011 <Electronically signed by Jhon Priest DO> Date Jhon Priest DO Cosigner Signature (If Indicated): Date CC: BECCA Velarde Start: 03-26-2019 End: 03-26-2019 History and Physical Exam Comments: See Note; NOTES: [facility] Medical Records Department [address] [place] [address] History and Physical 03/26/198 MR#: [id number] Acct: [id number] Name: DOUG FLANAGAN Rep #: [id number] : 1990 28 From: Bruna Garcia MD [...] Epilepsy, Myasthenia gravis who presents to the [facility] ED on 03/26/19 with history of [...] Myasthenia (Chronic) Epilepsy (Chronic) Allergies levetiracetam [From Kera] Allergy (Verified 05/04/18 12:41) Other Penicillins Allergy (Verified 05/04/18 12:41) Rash Home Medications: Ambulatory Orders Medication Instructions Recorded Lamotrigine [Lamictal] 200 mg PO BREAKFAST 12/23/17 Zonisamide 200 mg PO BREAKFAST 12/23/17 Lorazepam [Ativan] 1 mg PO DAILY PRN PRN 01/07/18 Surgical History: - - Thymectomy, appendectomy. Psychiatric History: No pertinent psych hx INSURANCE ADVISER History: No pertinent INSURANCE ADVISER history Lives: Spouse/ Significant Other Smoking Status: [...] 77.8 H, Lymph % (Auto) 15.0 L, Bosque % (Auto) 5.6, Eos % (Auto) 0.6, [...] Epilepsy, Myasthenia gravis who presents to the [facility] ED on 03/26/19 with history of [...] risk. Code Visit Inpatient E AND M: 41393 Init Hosp L3 03/26/192237 <Electronically signed by Bruna Garcia MD> Date Bruna Garcia MD Cosigner Signature: Date (if applicable) CC: BECCA Velarde; Bruna Garcia MD Signed Dylan Velarde Start: 12-22-2018 End: 12-22-2018 Discharge Instruction Comments: See Note; NOTES: [facility] Medical Records Department [address] [place] [address] Discharge Instruction 12/22/18 1806 MR#: [id number] Acct: [id number] Name: DOUG FLANAGAN Rep #: [id number] : 1990 28 From: Ant Philippe MD [...] your Primary Care Provider. Call [facility] ([phone]) or report to the closest Emergency Room. Call 911 if necessary. 12/22/18 1806 <Electronically signed by Ant Philippe MD> Date Ant Philippe MD Cosigner Signature (If Indicated): Date CC: BECCA Velarde Start: 12-22-2018 End: 12-22-2018 Emergency Department Summary Comments: See Note; NOTES: [facility] Medical Records Department [address] [place] [address] Emergency Department Summary 12/22/18 1804 MR#: [id number] Acct: [id number] Name: DOUG FLANAGAN Rep #: [id number] : 1990 28 From: Ant Philippe MD [...] patella contusion This note was generated with [employer] dictation software. It may contain incorrect words, spelling, and punctuation that were not noted in review of the chart prior to signing ED Disposition - Plan for ED Patient: Referrals: Dylan Velarde, DASHA-Robert [Primary Care Provider] - What to do if you have Problems For any increased pain, shortness of breath, bleeding, nausea or vomiting, chest pain, or any unexpected problems, contact your Primary Care Provider. Call [facility] ([phone]) or report to the closest Emergency Room. Call 911 if necessary. 12/22/18 1806 <Electronically signed by Ant Philippe MD> Date Ant Philippe MD Cosigner Signature (If Indicated): Date CC: BECCA Velarde Start: 12-22-2018 End: 12-22-2018 Chest 1 View (Portable) Comments: See Note; NOTES: [facility] Imaging Services [address] [place] [address] Chest 1 View (Portable) MR#: [id number] Acct: [id number] Name: DOUG FLANAGAN Rep #: [id number] : 1990 F 28 From: Samia Mosley DO PCP: BECCA Angulo Status: REG ER Study: Chest 1 View (Portable) Date of Exam: 12/22/18 Exam# [id number] Ordering Dr: Ant Philippe MD HISTORY:seizure seizure [...] , CC: BECCA Velarde; Ant Philippe MD Resource Room Teacher: Signed Dylan Biheather Start: 07-08-2018 End: 07-10-2018 Chest without Contrast Comments: See Note; NOTES: [facility] Imaging Services [address] [place] [address] Chest without Contrast MR#: [id number] Acct: [id number] Name: DOUG FLANAGAN Rep #: [id number] : 1990 F 27 From: Oscar Olson MD PCP: Dylan Velarde NP Status: REG CLI Study: Chest without Contrast Date of Exam: 07/08/18 Exam# [id number] Ordering Dr: Gerald Gilmore MD STUDY: CT [...] , Service support , CC: Dylan Velarde RV SERVICER; Gerald Gilmore MD Resource Room Teacher: Signed Dylan Velarde Start: 05-06-2018 End: 05-06-2018 12 lead ECG Comments: See Note; NOTES: [facility] Cardiovascular Services [address] [place] [address] 12 Lead EKG 05/04/18 1333 MR#: [id number] Acct: [id number] Name: DOUG FLANAGAN Rep #: [id number] : 1990 27 From: Zina Randhawa MD [...] rhythm Normal ECG Confirmed by JEREMI SALGADO, ZINA ([id number]), photography editor FELIX CALLE ([id number]) on 05/06/2018 2:38:02 PM Referred By: DERIK Confirmed By:ZINA RANDHAWA MD 05/06/18 1438 Date Zina Randhawa MD CC: Dylan Velarde NP; Jhon Priest DO Signed Dylan Velarde Start: 05-04-2018 End: 05-04-2018 Emergency Department Summary Comments: See Note; NOTES: [facility] Medical Records Department [address] [place] [address] Emergency Department Summary 05/04/18 1525 MR#: [id number] Acct: [id number] Name: DOUG FLANAGAN Rep #: [id number] : 1990 27 From: Jhon Priest DO [...] Chest pain This note was generated with [employer] dictation software. It may contain incorrect words, spelling, and punctuation that were not noted in review of the chart prior to signing ED Disposition - Plan for ED Patient: Disposition: Home or Assisted Living Chief Complaint: General Illness Diagnosis: Chest pain of uncertain etiology, Myasthenia gravis Instructions: Discharge Instructions for Myasthenia Gravis, ED Chest Pain Atypical Unkn Cause Referrals: Dylan Velarde, RV SERVICER-C [Primary Care Provider] - What to do if you have Problems For any increased pain, shortness of breath, bleeding, nausea or vomiting, chest pain, or any unexpected problems, contact your Primary Care Provider. Call [facility] ([phone]) or report to the closest Emergency Room. Call 911 if necessary. 05/04/18 1803 <Electronically signed by Jhon Priest DO> Date Jhon Priest DO Cosigner Signature (If Indicated): Date CC: Dylan Velarde Start: 05-04-2018 End: 05-04-2018 Chest PA and Lateral Comments: See Note; NOTES: [facility] Imaging Services [address] [place] [address] Chest PA and Lateral MR#: [id number] Acct: [id number] Name: DOUG FLANAGAN Rep #: [id number] : 1990 F 27 From: Mitchel Conrad MD PCP: Dylan Velarde NP Status: REG ER Study: Chest PA and Lateral Date of Exam: 05/04/18 Exam# [id number] Ordering Dr: Jhon Priest DO STUDY: X-RAY [...] Mitchel Conrad MD at 13:42 EST Tel [phone], Service support , CC: Dylan Velarde NP; Jhon Priest DO Resource Room Teacher: Signed Dylan Velarde Start: 04-15-2018 End: 04-16-2018 Chest without Contrast Comments: See Note; NOTES: [facility] Imaging Services [address] [place] [address] Chest without Contrast MR#: [id number] Acct: [id number] Name: DOUG FLANAGAN Rep #: [id number] : 1990 F 27 From: Zach Mercado MD PCP: Dylan Velarde NP Status: REG CLI Study: Chest without Contrast Date of Exam: 04/15/18 Exam# [id number] Ordering Dr: Lizz Hu NP-C STUDY: CT [...] , CC: Dylan Velarde NP; DASHA Hu Resource Room Teacher: Signed Dylan Velarde Start: 02-15-2018 End: 02-16-2018 Chest PA and Lateral Comments: See Note; NOTES: [facility] Imaging Services [address] [place] [address] Chest PA and Lateral MR#: [id number] Acct: [id number] Name: DOUG FLANAGAN Rep #: [id number] : 1990 F 27 From: Dejuan Chase MD PCP: Dylan Velarde NP Status: REG CLI Study: Chest PA and Lateral Date of Exam: 02/15/18 Exam# [id number] Ordering Dr: Lizz Hu STUDY: X-RAY CHEST [...] EDT Tel , Service support , CC: Dyaln Velarde NP; DASHA Hu Resource Room Teacher: Signed Dylan Velarde Start: 02-14-2018 End: 02-14-2018 Consultation Comments: See Note; NOTES: [facility] Medical Records Department [address] [place] [address] Consultation 02/11/18 1401 MR#: [id number] Acct: [id number] Name: FLANAGANDOUG Parvez Rep #: [id number] : 1990 27 From: Ashly Morgan MD [...] seizure management. She was initially seen by [facility] and by Dr. Hua from [facility] for epilepsy in the past, [...] seizure management. She was initially seen by [facility] and by Dr. Hua from [facility] for epilepsy in the past, [...] management. Code Visit Inpatient E AND M: 81181 Init Hosp L3 02/14/18 1117 <Electronically signed by Ashly Morgan MD> Date Ashly Morgan MD Cosigner Signature (if applicable): Date CC: Dylan Velarde RV SERVICER Signed Dylan Velarde Start: 02-11-2018 End: 02-11-2018 Emergency Department Summary Comments: See Note; NOTES: [facility] Medical Records Department [address] [place] [address] Emergency Department Summary 02/11/18 1655 MR#: [id number] Acct: [id number] Name: DOUG FLANAGAN Rep #: [id number] : 1990 27 From: Naomi Durbin DO [...] rebound or rigidity, no peritoneal signs. Neuro aebt-vhisly-yfbx and heel peters testing within normal limits, [...] weakness-etiology uncertain] This note was generated with [employer] dictation software. It may contain incorrect words, [...] your Primary Care Provider. Call [facility] ([phone]) or report to the closest Emergency Room. Call 911 if necessary. 02/11/18 1700 <Electronically signed by Naomi Durbin DO> Date Naomi Durbin DO Cosigner Signature (If Indicated): Date CC: Dylan Bakerjeffreyheather LOU Dylan Velarde Start: 02-11-2018 End: 02-11-2018 Discharge Instruction Comments: See Note; NOTES: [facility] Medical Records Department [address] [place] [address] Discharge Instruction 02/11/181652 MR#: [id number] Acct: [id number] Name: DOUG FLANAGAN Rep #: [id number] : 1990 27 From: Naomi Durbin DO PCP: Dylan Velarde NP Status: DEP ER ED Disposition - Plan for ED Patient: Chief Complaint: Weakness Instructions: ED Weakness UKO Referrals: Dylan Velarde, RV SERVICER-C [Primary Care Provider] - Gerald Gilmore MD [STAFF PHYSICIAN] - 3-5 Days What to do if you have Problems For any increased pain, shortness of breath, bleeding, nausea or vomiting, chest pain, or any unexpected problems, contact your Primary Care Provider. Call [facility] ([phone]) or report to the closest Emergency Room. Call 911 if necessary. 02/11/181654 <Electronically signed by Naomi Durbin DO> Date Naomi Durbin DO Cosigner Signature (If Indicated): Date CC: Dylan Velarde NP Dylan Patheather Start: 02-11-2018 End: 02-11-2018 Spine Cervical (Routine) Comments: See Note; NOTES: [facility] Imaging Services [address] [place] [address] Spine Cervical (Routine) MR#: [id number] Acct: [id number] Name: DOUG FLANAGAN Rep #: [id number] : 1990 F 27 From: Tessie Peacock MD PCP: Dylan Velarde NP Status: REG ER Study: Spine Cervical (Routine) Date of Exam: 02/11/18 Exam# [id number] Ordering Dr: Ashly Morgan MD STUDY: MRI [...] CC: Dylan Velarde NP; Juwan Morgan MD Resource Room Teacher: Signed Dylan Velarde Work Phone: Start: 02-11-2018 End: 02-11-2018 Brain W/WO Contrast Comments: See Note; NOTES: [facility] Imaging Services [address] [place] [address] Brain W/WO Contrast MR#: [id number] Acct: [id number] Name: DOUG FLANAGAN Rep #: [id number] : 1990 F 27 From: Tessie Peacock MD PCP: Dylan Velarde NP Status: REG ER Study: Brain W/WO Contrast Date of Exam: 02/11/18 Exam# [id number] Ordering Dr: Naomi Durbin DO STUDY: MRI [...] CC: Dylan Velarde NP; Naomi Durbin DO Resource Room Teacher: Signed Dylan Velarde Start: 01-07-2018 End: 01-07-2018 Discharge Instruction Comments: See Note; NOTES: [facility] Medical Records Department [address] [place] [address] Discharge Instruction 01/07/18640 MR#: [id number] Acct: [id number] Name: DOUG FLANAGAN Rep #: [id number] : 1990 27 From: Naomi Durbin DO [...] your Primary Care Provider. Call [facility] ([phone]) or report to the closest Emergency Room. Call 911 if necessary. 01/07/18641 <Electronically signed by Naomi Durbin DO> Date Naomi Durbin DO Cosigner Signature (If Indicated): Date CC: Dylan Velarde Start: 01-07-2018 End: 01-07-2018 Emergency Department Summary Comments: See Note; NOTES: [facility] Medical Records Department [address] [place] [address] Emergency Department Summary 01/07/1836 MR#: [id number] Acct: [id number] Name: DOUG FLANAGAN Rep #: [id number] : 1990 27 From: Naomi Durbin DO [...] rebound or rigidity, no peritoneal signs. Neuro kpfu-auplsn-frvr and heel peters testing within normal limits, [...] [Recurrent seizure] This note was generated with [employer] dictation software. It may contain incorrect words, [...] problems, contact your Primary Care Provider. Call [facility] ([phone]) or report to the closest Emergency Room. Call 911 if necessary. 01/07/18 0640 <Electronically signed by Naomi Durbin DO> Date Naomi Durbin DO Cosigner Signature (If Indicated): Date CC: Dylan Velarde Start: 01-07-2018 End: 01-07-2018 Brain/Head without Contrast Comments: See Note; NOTES: [facility] Imaging Services [address] [place] [address] Brain/Head without Contrast MR#: [id number] Acct: [id number] Name: DOUG FLANAGAN Rep #: [id number] : 1990 F 27 From: Reid Ortega MD PCP: Dylan Velarde NP Status: REG ER Study: Brain/Head without Contrast Date of Exam: 01/07/18 Exam# [id number] Ordering Dr: Naomi Durbin DO STUDY: CT [...] CC: Dylan Velarde NP; Naomi Durbin DO Resource Room Teacher: Signed Dylan Velarde Start: 12-23-2017 End: 12-23-2017 Emergency Department Summary Comments: See Note; NOTES: [facility] Medical Records Department [address] [place] [address] Emergency Department Summary 12/23/17 1600 MR#: [id number] Acct: [id number] Name: DOUG FLANAGAN Rep #: [id number] : 1990 27 From: Brain Del Castillo MD PCP: Dylan Velarde NP Status: REG ER - ER Visit Summary Date of Service: 12/23/17 Chief Complaint: Pelvic right patient seen by practitioner at [facility] and sent to ER for further [...] illness this past weekend. 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 [...] migraine variant This note was generated with [employer] dictation software. It may contain incorrect words, [...] your Primary Care Provider. Call [facility] ([phone]) or report to the closest Emergency Room. Call 911 if necessary. 12/23/17 1606 <Electronically signed by Brain Del Castillo MD> Date Brain Del Castillo MD Cosigner Signature (If Indicated): Date CC: Dylan Velarde RV SERVICER Dylan Velarde Start: 11-17-2017 Adult depression screening assessment Louiseaime Flanagan APRN.CNM Work Phone: Start: 11-11-2017 End: 11-11-2017 Emergency Department Summary Comments: See Note; NOTES: [facility] Medical Records Department [address] [place] [address] Emergency Department Summary 11/10/17 0905 MR#: [id number] Acct: [id number] Name: DOUG FLANAGAN Rep #: [id number] : 1990 27 From: Efrain Olguin MD PCP: Bhupendra aCndelaria DO Status: DEP ER - ER Visit Summary Date of Service: 11/10/17 Chief Complaint: Headache History of Present Illness: The patient is a 27 F who sees Dylan vivass an Dr. Hua, her neurologist at [facility] for seizures. She reports [...] 03, 2017. This note was generated with [employer] software. It may contain incorrect words, spelling, [...] your Primary Care Provider. Call [facility] ([phone]) or report to the closest Emergency Room. Call 911 if necessary. 11/11/17 1117 <Electronically signed by Efrain Olguin MD> Date Efrain Olguin MD Cosigner Signature (If Indicated): Date CC: Bhupendra Candelaria DO Dylan Velarde Start: 11-10-2017 End: 11-10-2017 Brain/Head without Contrast Comments: See Note; NOTES: [facility] Imaging Services [address] [place] [address] Brain/Head without Contrast MR#: [id number] Acct: [id number] Name: DOUG FLANAGAN Rep #: [id number] : 1990 F 27 From: Mitchel Conrad MD PCP: Bhupendra Candelaria DO Status: REG ER Study: Brain/Head without Contrast Date of Exam: 11/10/17 Exam# [id number] Ordering Dr: Efrain Olguin MD STUDY: CT [...] Mitchel Conrad MD at 9:17 EDT Tel [phone], Service support , CC: Bhupendra Candelaria DO; Efrain Olguin MD Resource Room Teacher: Signed Dylan Velarde Start: 11-03-2017 End: 11-03-2017 Emergency Department Summary Comments: See Note; NOTES: [facility] Medical Records Department [address] [place] [address] Emergency Department Summary 11/03/17 1449 MR#: [id number] Acct: [id number] Name: DOUG FLANAGAN Rep #: [id number] : 1990 27 From: Hill Banks MD [...] increased activity recently and actually traveled to [place] to [place]. She has been relatively fatigued recently, but [...] neurologist for the patient's neurologist at the [facility], they recommended outpatient follow-up. Lamictal level is still pending. At this time the patient is safe for discharge to follow-up with neurology as an outpatient. Disposition: Discharge Impression: 1. Breakthrough seizure This note was generated with [employer] software. It may contain incorrect words, spelling, [...] your Primary Care Provider. Call [facility] ([phone]) or report to the closest Emergency Room. Call 911 if necessary. 11/03/17 1640 <Electronically signed by Hill Banks MD> Date Hill Banks MD Cosigner Signature (If Indicated): Date CC: Bhupendra Candelaria DO Dylan Velarde Start: 05-20-2016 End: 05-20-2016 Chest without Contrast Comments: See Note; NOTES: [facility] Imaging Services [address] [place] [address] Verdana 4d Chest without Contrast MR#: [id number] Acct: [id number] Name: DOUG FLANAGAN Rep #: [id number] : 1990 F 25 From: Mitchel Conrad MD PCP: Bhupendra Candelaria DO Status: REG CLI Study: Chest without Contrast Date of Exam: 05/20/16 Exam# [id number] Ordering Dr: Indra Weinstein DO STUDY: CT [...] Mitchel Conrad MD at 15:26 EST Tel [phone], Service support [phone], CC: Indra Weinstein D.O.; Bhupendra Candelaria DO Resource Room Teacher: Signed Dylan Velarde Start: 05-18-2016 End: 05-18-2016 Echocardiogram Complete Comments: See Note; NOTES: [facility] Cardiovascular Services [address] [place] [address] Echo Complete 05/18/16 1400 MR#: [id number] Acct: [id number] Name: DOUG FLANAGAN Rep #: [id number] : 1990 25 From: Compa Healy MD Attending Dr: Nisha Brandon RV SERVICER Status: REG [facility] Ordering Dr: Nisha Brandon RV SERVICER-C Date: 05/18/16 Location: [facility] Sex: F C Admitted: Reason For Study: [...] mitral valve. Structurally normal valves. Ordering Physician: Nisha Brandon Performed By: Zenia Miller RDCS 05/18/16 1503 Date Compa Healy MD CC: Nisha Brandon; Bhupendra Candelaria DO Date Dictated: 05/18/16 1400 Date Transcribed: 05/18/161502 Resource Room Teacher: Signed Dylan Velarde Start: 05-15-2016 End: 05-15-2016 12 lead ECG Comments: See Note; NOTES: [facility] Cardiovascular Services [address] [facility] [address] 12 Lead EKG 05/13/161750 MR#: [id number] Acct: [id number] Name: DOUG FLANAGAN Rep #: [id number] : 1990 25 From: Tevin Quijano MD [...] Normal ECG Confirmed by TEVIN QUIJANO ([id number]), photography editor FELIX CALLE ([id number]) on 05/15/2016 3:14:49 PM Referred By: /CEDRICK Confirmed By:TEVIN QUIJANO 05/15/16 1514 Date Tevin Quijano MD CC: Bhupendra Candelaria DO Date Dictated: 05/13/16 1751 Date Transcribed: 05/13/161750 Resource Room Teacher: Signed Dylan Velarde Start: 05-14-2016 End: 05-14-2016 Discharge Instruction Comments: See Note; NOTES: [facility] Medical Records Department [address] [place] [address] Discharge Instruction 05/13/164 MR#: [id number] Acct: [id number] Name: DOUG FLANAGAN Rep #: [id number] : 1990 From: Hill Banks MD PCP: [...] your Primary Care Provider. Call [facility] ([phone]) or report to the closest Emergency Room. Call 911 if necessary. 05/14/16 0046 <Electronically signed by Hill Banks MD> Date Hill Banks MD Cosigner Signature (If Indicated): Date CC: Bhupendra Candelaria DO Dylan Velarde Start: 05-14-2016 End: 05-14-2016 Emergency Department Summary Comments: See Note; NOTES: [facility] Medical Records Department [address] [place] [address] Emergency Department Summary MR#: [id number] Acct: [id number] Name: DOUG FLANAGAN Rep #: [id number] : 1990 From: Hill Banks MD PCP: [...] a significant workup in the hospital in 2015, including echocardiogram, CTA, all of which were found to be negative. The patient went and saw a technology risk intern for this. They felt that it potentially [...] workup including CTA and cardiac echo in 2015. She has virtually no cardiac or PE [...] the same. DISPOSITION: Discharge. DIAGNOSIS: Chest pain. Amador Negron: NTS JOB: [id number] 05/14/16 0046 <Electronically signed by Hill Banks MD> Date Hill Banks MD Cosigner Signature (If Indicated): Date CC: Bhupendra Candelaria DO Date Dictated: 05/14/1611 Date Transcribed: 05/14/1611 Resource Room Teacher: Signed Dylan Patheather Start: 05-13-2016 End: 05-13-2016 Chest PA and Lateral Comments: See Note; NOTES: [facility] Imaging Services [address] [place] [address] Verdana 4d Chest PA and Lateral MR#: [id number] Acct: [id number] Name: DOUG FLANAGAN Rep #: [id number] : 1990 F 25 From: Olvin Rosenthal PCP: Bhupendra Candelaria DO Status: REG ER Study: Chest PA and Lateral Date of Exam: 05/13/16 Exam# [id number] Ordering Dr: Hill Banks MD STUDY: X-RAY [...] DO at 19:07 EST , Service support [phone], CC: Bhupendra Candelaria DO; Hill Banks Resource Room Teacher: Signed Dylan Velarde Start: 02-11-2016 End: 02-11-2016 12 lead ECG Comments: See Note; NOTES: [facility] Cardiovascular Services [address] [place] [address] 12 Lead EKG 02/09/16 1045 MR#: [id number] Acct: [id number] Name: DOUG FLANAGAN Rep #: [id number] : 1990 25 From: Compa Healy MD [...] ECG Confirmed by COMPA HEALY MD ([id number]), photography editor FELIX CALLE ([id number]) on 02/11/2016 2:23:30 PM Referred By: Confirmed By:COMPA HEALY MD 02/11/16 1423 Date Compa Healy MD CC: Bhupendra Candelaria DO Date Dictated: 02/09/16 1045 Date Transcribed: 02/09/161044 Resource Room Teacher: Pita Velarde Start: 02-09-2016 End: 02-09-2016 Emergency Department Summary Comments: See Note; NOTES: [facility] Medical Records Department [address] [place] [address] Emergency Department Summary MR#: [id number] Acct: [id number] Name: DOUG FLANAGAN Rep #: [id number] : 1990 25 From: Tevin Lopez DO [...] spasms. Tevin Lopez DO T: NTS JOB: [id number] 02/09/16 1542 <Electronically signed by Tevin Lopez DO> Date Tevin Lopez DO Cosigner Signature (If Indicated): Date CC: Bhupendra Candelaria DO Date Dictated: 02/09/16 1211 Date Transcribed: 02/09/16 121 Resource Room Teacher: Signed Dylan Bakerjeffreyheather Start: 02-09-2016 End: 02-09-2016 Discharge Instruction Comments: See Note; NOTES: [facility] Medical Records Department [address] [place] [address] Discharge Instruction 02/09/16 1208 MR#: [id number] Acct: [id number] Name: DOUG FLANAGAN Rep #: [id number] : 1990 25 From: Tevin Lopez DO [...] problems, contact your doctor. Call [facility] ([phone]) or report to the closest Emergency Room. Call 911 if necessary. 02/09/16 1209 <Electronically signed by Tevin Lopez DO> Date Teivn Lopez DO Cosigner Signature (If Indicated): Date CC: Bhupendra Candelaria DO Dylan Velarde Start: 02-09-2016 End: 02-09-2016 Chest PA and Lateral Comments: See Note; NOTES: [facility] Imaging Services [address] [place] [address] Verdana 4d Chest PA and Lateral MR#: [id number] Acct: [id number] Name: DOUG FLANAGAN Rep #: [id number] : 1990 F 25 From: Virginia Hankins MD PCP: Bhupendra Candelaria DO Status: REG ER Study: Chest PA and Lateral Date of Exam: 02/09/16 Exam# [id number] Ordering Dr: Tevin Lopez DO STUDY: X-RAY [...] MD at 12:03 EDT , Service support [phone], CC: Tevin Lopez DO; Bhupendra Candelaria DO Resource Room Teacher: Signed Dylan Velarde Start: 01-31-2016 End: 01-31-2016 Emergency Department Summary Comments: See Note; NOTES: [facility] Medical Records Department [address] [place] [address] Emergency Department Summary MR#: [id number] Acct: [id number] Name: DOUG FLANAGAN Rep #: [id number] : 1990 25 From: Hill Tavera MD [...] Atypical chest pain. 2. Pleurisy. DISPOSITION: Home. Hill Tavera MD C C: Donna Perdomo MD T: NTS JOB: [id number] 01/31/16 1507 <Electronically signed by Hill Tavera MD> Date Hill Tavera MD Cosigner Signature (If Indicated): Date CC: Donna Perdomo MD; No Primary Care Physician Date Dictated: 01/28/16 1205 Date Transcribed: 01/28/161204 Resource Room Teacher: Signed Dylan Velarde Start: 11-12-2015 End: 11-12-2015 Emergency Department Summary Comments: See Note; NOTES: [facility] Medical Records Department [address] [place] [address] Emergency Department Summary MR#: [id number] Acct: [id number] Name: DOUG FLANAGAN Rep #: [id number] : 1990 25 From: Everardo Espinoza MD [...] Everardo Jones C: Bhupendra Candelaria DO T: OLIVIER JOB: [id number] 11/12/15 0115 <Electronically signed by Everardo Espinoza MD> Date Everardo Espinoza MD Cosigner Signature (If Indicated): Date CC: Bhupendra Candelaria DO Date Dictated: 11/11/151806 Date Transcribed: 11/11/151806 Resource Room Teacher: Pita Velarde Start: 11-11-2015 End: 11-11-2015 Discharge Instruction Comments: See Note; NOTES: [facility] Medical Records Department [address] [place] [address] Discharge Instruction 11/11/15 1728 MR#: [id number] Acct: [id number] Name: DOUG FLANAGAN Rep #: [id number] : 1990 25 From: Everardo Espinoza MD [...] problems, contact your doctor. Call [facility] ([phone]) or report to the closest Emergency Room. Call 911 if necessary. 11/11/15 1730 <Electronically signed by Everardo Espinoza MD> Date Everardo Espinoza MD Cosigner Signature (If Indicated): Date CC: Bhupendra Candelaria DO Dylan Velarde Start: 11-11-2015 End: 11-11-2015 Brain/Head without Contrast Comments: See Note; NOTES: [facility] Imaging Services [address] [place] [address] Verdana 4d Brain/Head without Contrast MR#: [id number] Acct: [id number] Name: DOUG FLANAGAN Rep #: [id number] : 1990 F 25 From: Everton Wolff MD PCP: Bhupendra Candelaria DO Status: REG Study: Brain/Head without Contrast Date of Exam: 11/11/15 Exam# [id number] Ordering Dr: Everardo Espinoza MD STUDY: CT [...] MD at 17:00 EDT , Service support [phone], CC: EVERARDO ESPINOZA MD; Bhupendra Candelaria DO Resource Room Teacher: Signed Dylan Velarde Start: 06-21-2015 End: 06-21-2015 Brain without Contrast Comments: See Note; NOTES: [facility] Imaging Services [address] [place] [address] Verdana 4d Brain without Contrast MR#: [id number] Acct: [id number] Name: DOUG FLANAGAN Rep #: [id number] : 1990 F 24 From: Khadar Miller MD PCP: Bhupendra Candelaria DO Status: REG CLI Study: Brain without Contrast Date of Exam: 06/21/15 Exam# [id number] Ordering Dr: Bhupendra Candelaria DO STUDY: MRI [...] MD at 15:50 EST , Service support [phone], CC: Bhupendra Candelaria DO Resource Room Teacher: Signed Bhupendra Candelaria Work Phone: Start: 02-26-2015 End: 02-26-2015 Spmtry w/vc expiratory eddie w/wo mxml vol vntj _ Dylan Velarde Work Phone: Comment on above: mild airway obstruction Start: 02-26-2015 End: 02-26-2015 Ecg routine ecg w/least 12 lds w/i&r [MEASUREMENTS ANALYSIS] Date of Test: 02/26/2015 11:18:05; Heart Rate: 77; GA Interval: 182; QRS: 100; QT Interval: 378; Corrected QT Interval (QTc): 407; P Wave [place]: 56; QRS Wave [place]: 44; T Wave [place]: 34; Blood Pressure: 104/66 [ECG DIAGNOSTIC STATEMENTS] Date of Test: 02/26/2015 11:18:05; Summary: Sinus Rhythm WITHIN NORMAL LIMITS Dylan Velarde Work Phone: Appendectomy Madai Dunbar Comment on above: 2004 Appendectomy Madai Dunbar Comment on above: 2004 Appendectomy Louise Cunningham Comment on above: 2004 Appendectomy Prerna De La Garza Comment on above: 2004 Appendectomy Alexis Iqbal Comment on above: 2004 Appendectomy Alexis Riojas Comment on above: 2004 Appendectomy Donna Perdomo MD Work Phone: Comment on above: 2004 Appendectomy Zeinab Cain CMA Comment on above: 2004 Appendectomy Nina Fierro PN Comment on above: 2004 Hip surgery right Madai Loc klear Comment on above: 2012 Hip surgery right Madai Loc klear Comment on above: 2012 Hip surgery right Louise umana Comment on above: 2012 Hip surgery right Prerna means Comment on above: 2012 Hip surgery right Alexis Wesley is Comment on above: 2012 Hip surgery right Alexis Smi th Comment on above: 2012 Hip surgery right Donna Dixon MD Work Phone: Comment on above: 2012 Hip surgery right Zeinab lee ENGINEERING AIDE Comment on above: 2012 Hip surgery right Nina gould LPN Comment on above: [address] Donna Perdomo Work Phone: Plan of Treatment Date Care Activity Detail Author Start: 2048 RSV Immunization aged 60 or older (1 - 1-dose 60+ series) RSV Immunization aged 60 or older (1 - 1-dose 60+ series) [facility] Start: 2038 Zoster Vaccines (1 of 2) Zoster Vaccines (1 of 2) [facility] Start: 09-25-2029 DTaP/Tdap/Td Vaccines (2 - Td or Tdap) DTaP/Tdap/Td Vaccines (2 - Td or Tdap) [facility] Start: 09-25-2029 Tetanus vaccination TETANUS [facility] Start: 09-25-2029 Urine microalbumin profile DTaP,Tdap,Td Vaccine (2 - Td or Tdap) [facility] Start: 05-18-2028 Meningococcal Conjugate Vaccine (3 - Risk 2-dose series) Meningococcal Conjugate Vaccine (3 - Risk 2-dose series) [facility] Start: 05-14-2028 Screening for malignant neoplasm of cervix Cervical Cancer Screening [facility] Start: 04-29-2027 HPV TESTING HPV TESTING [facility] Start: 04-29-2027 PAP TESTING PAP TESTING [facility] Start: 07-16-2026 HPV TESTING HPV TESTING [facility] Start: 07-16-2026 PAP TESTING PAP TESTING [facility] Start: 04-29-2025 Screening for malignant neoplasm of cervix [facility] Start: 02-05-2025 Blood ammonia measurement [facility] Start: 02-05-2025 Complete blood count [facility] Start: 02-05-2025 Lamotrigine measurement [facility] Start: 01-27-2025 [facility] Start: 01-27-2025 CT of head without contrast Brain/Head without Contrast [facility] Start: 01-27-2025 Radiologic exam chest 2 views Chest PA and Lateral [facility] Start: 01-27-2025 End: 01-27-2025 Emergency department patient visit Departed Emergency -Emergency Department Work Phone: Start: 01-11-2025 [facility] Start: 01-01-2025 COVID-19 VACCINE ( season) COVID-19 VACCINE ( season) [facility] Start: 01-01-2025 COVID-19 VACCINE ( season) COVID-19 VACCINE ( season) [facility] Start: 01-01-2025 Influenza vaccination [facility] Start: 11-04-2024 [facility] Start: 11-04-2024 Seizure precautions [facility] Start: 10-13-2024 X-ray of chest, PA and lateral views Chest PA and Lateral [facility] Start: 10-13-2024 XR Chest PA and Lateral [facility] Start: 10-06-2024 End: 10-06-2024 [facility] Start: 10-06-2024 Creatine kinase [Enzymatic activity/volume] in Serum or Plasma [facility] Start: 10-06-2024 Triglycerides measurement [facility] Start: 10-06-2024 Airway suction technique [facility] Start: 10-06-2024 Lamotrigine measurement [facility] Start: 08-23-2024 Plain X-ray abdomen Abdomen Single View [facility] Start: 08-23-2024 XR Abdomen Single view [facility] Start: 08-23-2024 Lamotrigine measurement [facility] Start: 08-18-2024 [facility] Start: 08-16-2024 [facility] Start: 05-18-2024 End: 05-18-2024 Patient encounter procedure 05/18/2024 9:50 AM EST Office Visit OB/Gynecology [address] [place] [address] Sarah Pop MD [address] [place] [address] Annual OB/Gynecology Comment on above: Annual Start: 05-14-2024 Screening for malignant neoplasm of cervix Cervical Cancer Screening [facility] Start: 03-27-2024 End: 03-27-2024 Telemedicine consultation with patient 03/27/2024 1:00 PM EST Telemedicine [facility] [address] [place], [place] [id number] Edgar Ayers MD [address] [place] [address] [facility] Start: 02-29-2024 End: 02-29-2024 Patient encounter procedure Neurology [facility] Start: 02-13-2024 Meningococcal B Vaccine: Consider Based On Risk (4 of 5 - Increased Risk Trumenba 3-dose series) Meningococcal B Vaccine: Consider Based On Risk (4 of 5 - Increased Risk Trumenba 3-dose series) [facility] Start: 01-02-2024 COVID-19 VACCINE () COVID-19 VACCINE () [facility] Start: 01-02-2024 Covid-19 Vaccine () Covid-19 Vaccine () [facility] Start: 01-02-2024 Influenza vaccination [facility] Start: 11-01-2023 End: 11-01-2023 Telemedicine consultation with patient 11/01/2023 1:00 PM EDT Telemedicine [facility] [address] [place] [address] Edgar Ayers MD [address] [place] [address] [facility] Start: 05-03-2023 Behavioral Health Screening Behavioral Health Screening [facility] Start: 04-09-2023 End: 04-09-2023 Patient encounter procedure 04/09/2023 9:30 AM EST Infusion Visit [facility] [address] [place] [address] [facility] Start: 04-06-2023 End: 04-06-2023 Patient encounter procedure [facility] [place] Start: 03-09-2023 End: 03-09-2023 Patient encounter procedure 03/09/2023 1:20 PM EST Office Visit Neurology Outpatient Care Rajat Delgado [address] [place] [id number] Soledad Paul APRN-SUPERVISOR TYPESETTING [address] [place] [address] [facility] Start: 03-09-2023 End: 03-09-2023 Patient encounter procedure 03/09/2023 9:30 AM EST Appointment Imaging [facility] [address] [place] [address] Imaging [facility] Start: 02-13-2023 End: 11-14-2023 EEG, ROUTINE EEG, ROUTINE Neurology Routine Breakthrough seizure Expected: 02/13/2023, Expires: 11/14/2023 [facility] Work Phone: Comment on above: Expected: 02/13/2023, Expires: Start: 01-06-2023 End: 01-06-2023 Patient encounter procedure 01/06/2023 Office Visit Neurology Renee Donald APRN-SUPERVISOR TYPESETTING [address] [place] [address] [facility] Start: 01-01-2023 COVID-19 VACCINE ( season) COVID-19 VACCINE ( season) [facility] Start: 01-01-2023 Influenza vaccination [facility] Start: 12-03-2022 End: 12-03-2022 Patient encounter procedure 12/03/2022 2:40 PM EDT Office Visit [facility] [address] [facility] [address] [place] [address] Renee Donald APRN-SUPERVISOR TYPESETTING [address] [place] [address] [facility] Start: 09-07-2022 Venous catheter care management [facility] Start: 08-08-2022 [facility] Start: 08-08-2022 Seizure precautions [facility] Start: 05-27-2022 Venous catheter care management [facility] Start: 05-27-2022 [facility] Start: 05-27-2022 Chemotherapy care management [facility] Start: 05-03-2022 DEPRESSION ASSESSMENT DEPRESSION ASSESSMENT [facility] Start: 03-27-2022 Venous catheter care management [facility] Start: 02-05-2022 Seizure precautions [facility] Start: 01-01-2022 Influenza vaccination [facility] Start: 10-17-2021 Anesthesia vaginal procedure w/biopsy nos ANESTH VAGINAL PROCEDURES [facility] Work Phone: Start: 10-17-2021 Conization cervix w/wo d&c rpr knife/laser CONIZATION OF CERVIX [facility] Work Phone: Start: 10-17-2021 Insertion intrauterine device iud INSERT INTRAUTERINE DEVICE [facility] Work Phone: Start: 10-17-2021 Removal intrauterine device iud REMOVE INTRAUTERINE DEVICE [facility] Work Phone: Start: 10-17-2021 Patient discharge [facility] Work Phone: Start: 10-17-2021 Procedure discontinued [facility] Work Phone: Start: 10-17-2021 Ambulation without limitation [facility] Work Phone: Start: 10-17-2021 Medical regimen orders management [facility] Work Phone: Start: 10-17-2021 Medication education [facility] Work Phone: Start: 10-17-2021 Taking patient vital signs [facility] Work Phone: Start: 10-17-2021 Vital signs measurements [facility] Work Phone: Start: 10-17-2021 [facility] Work Phone: Start: 10-17-2021 Patient discharge [facility] Work Phone: Start: 10-17-2021 Venous catheter care management [facility] Work Phone: Start: 05-03-2021 DEPRESSION ASSESSMENT DEPRESSION ASSESSMENT [facility] Start: 12-24-2020 Procedure Education Eprescribed prescriptions (G8553) [facility] Work Phone: Start: 12-24-2020 Provider Instructions for Treatment Follow up in 6 months [facility]; [facility] Work Phone: Start: 11-12-2020 Procedure Education Eprescribed prescriptions (G8553) [facility] Work Phone: Start: 11-12-2020 Potassium serum plasma/whole blood POTASSIUM SERUM (15356) [facility]; [facility] Work Phone: Start: 10-25-2020 Meningococcal B Vaccine (4 of 5 - Increased Risk Trumenba 3-dose series) Meningococcal B Vaccine (4 of 5 - Increased Risk Trumenba 3-dose series) [employer] [facility] Start: 10-25-2020 Comprehensive metabolic panel Metabolic Panel, Comprehensive (39114) [facility] Work Phone: Start: 10-25-2020 Thromboplastin time partial plasma/whole blood PTT (Activated Partial Thromboplastin Time) (21321) [facility]; [facility] Work Phone: Start: 10-25-2020 Prothrombin time PT (Prothrobim Time) (65307) [facility]; [facility] Work Phone: Start: 10-25-2020 Blood count complete automated CBC & PLATELETS (AUTO) (16521) [facility]; [facility] Work Phone: Start: 09-02-2020 HPV Vaccines (2 - 3-dose SCDM series) HPV Vaccines (2 - 3-dose SCDM series) [employer] [facility] Start: 01-02-2020 [facility] Start: 10-22-2019 End: 10-07-2020 Basic metabolic 2000 panel Basic Metabolic Panel Lab Routine Seizures (HCC) Expected: 10/22/2019, Expires: 10/07/2020 [facility] Comment on above: Expected: 10/22/2019, Expires: 1 Start: 07-19-2019 Procedure Education Eprescribed prescriptions (G8553) [facility]; [facility] Work Phone: Start: 05-17-2019 Culture bct isol&prsmptv id isolate ea urine URINE SARAH BETH CULTURE-IDENTIFICATN (38604) [facility]; [facility] Work [...] 11-17-2018 Adult depression screening assessment DEPRESSION SCREENING [facility] Start: 10-24-2018 Procedure Education Eprescribed prescriptions (G8553) [facility] Work Phone: Start: 10-24-2018 Cul bact xcpt urine blood/stool aerobic isol Throat Culture (28677) [facility] Work Phone: Start: 10-24-2018 Antibody gladis-aragon eb virus early antigen ea EBV Panel (33660) [facility] Work Phone: Start: 10-24-2018 Heterophile antibodies screen MONOSPOT TEST (42723) [facility] Work Phone: Start: 10-24-2018 Blood count complete auto&auto difrntl wbc CBC, Platelets & Auto Diff (39181) [facility] Work Phone: Start: 10-24-2018 Comprehensive metabolic panel Metabolic Panel, Comprehensive (37996) [facility] Work Phone: Start: 10-24-2018 Iaadiadoo streptococcus group a Rapid Strep Test, Office (39998) [facility]; [facility] Work Phone: Start: 10-24-2018 S. pyogenes Ag IA Ql (Unsp spec) Rapid Strep Test, Office (40590) [facility] Work Phone: Start: 10-24-2018 Cul bact xcpt urine blood/stool aerobic isol CULTURE, SPUTUM (54593) [facility] Work Phone: Start: 2018 Screening for malignant neoplasm of cervix HPV/Cotest [facility] Start: 05-05-2018 Assay of magnesium MAGNESIUM (01888) [facility]; [facility] Work Phone: Start: 05-05-2018 Magnesium mass conc MAGNESIUM (13433) [facility] Work Phone: Start: 05-05-2018 Renal function panel RENAL FUNCTION PANEL (63637) [facility] Work Phone: Start: 03-08-2018 Procedure Education Eprescribed prescriptions (G8553) [facility] Work Phone: Start: 03-08-2018 Bacteria identified Respiratory culture Nom (Sput) Sputum Culture (40737) [facility] Work Phone: Start: 03-08-2018 Cul bact xcpt urine blood/stool aerobic isol Sputum Culture (80033) [facility]; [facility] Work Phone: Start: 02-18-2018 Tb cell mediated antign respnse gamma interferon QuantiFERON-TB Gold Plus (QFT-Plus) (61936) [facility] Work Phone: Start: 02-18-2018 Antibody borrelia burgdorferi lyme disease Lyme Disease Antibody W/ Reflex (50957) [facility] Work Phone: Start: 02-11-2018 [...] difrntl wbc CBC, PLATELETS & AUT DIFF (59653) [facility] Work Phone: Start: 12-24-2017 C-reactive protein high sensitivity C-REACT PROT HIGH SENS(hsCRP) (68535) [facility] Work Phone: Start: 12-24-2017 Protein mass conc C-REACT PROT HIGH SENS(hsCRP) (37064) [facility] Work Phone: Start: 12-24-2017 Sedimentation rate rbc non-automated ESR-F (SED RATE ERYTHROCYTE - FEMALE) (14329) [facility] Work Phone: Start: 12-24-2017 Rheumatoid factor quantitative RHEUMATOID FACTOR-QUANT (84300) [facility] Work Phone: Start: 12-24-2017 Antinuclear antibodies efe EFE (ANTINUCLEAR ANTIBODY) (38028) [facility]; [facility] Work Phone: Start: 12-24-2017 Nuclear Ab IF titer (S) EFE (ANTINUCLEAR ANTIBODY) (22665) [facility] Work Phone: Start: 12-23-2017 Procedure Education Eprescribed prescriptions (G8553) [facility] Work Phone: Start: 12-23-2017 Comprehensive metabolic panel METABOLIC PANEL, COMPREHENSIVE (54910) [facility] Work Phone: Start: 11-30-2017 [...] Phone: Start: 02-10-2017 Iaadiadoo influenza Rapid Flu (25677 x 2) [facility] Work Phone: Start: 02-10-2017 Iaadiadoo streptococcus group a Rapid Strep Test, Office (90820) [facility]; [facility] Work Phone: Start: 02-10-2017 S. pyogenes Ag IA Ql (Unsp spec) Rapid Strep Test, Office (04282) [facility] Work Phone: Start: 05-19-2016 Rheumatoid factor quantitative RHEUMATOID FACTOR-QUANT (15936) test code 174124 [facility] Work Phone: Start: 05-19-2016 Extractable nuclear antigen antibody any method Systemic Lupus Profile (48975) [facility] Work Phone: Start: 05-19-2016 Protein mass conc Systemic Lupus Profile (82976) [facility] Work Phone: Start: 05-19-2016 Comprehensive metabolic panel Metabolic Panel, Comprehensive (73600) [facility] Work Phone: Start: 05-19-2016 Assay of thyroid stimulating hormone tsh TSH (52708) [facility]; [facility] Work Phone: Start: 05-19-2016 Thyrotropin Qn TSH (47573) [facility] Work Phone: Start: 05-19-2016 Blood count complete auto&auto difrntl wbc CBC, Platelets & Auto Diff (72265) [facility] Work Phone: Start: 05-19-2016 [...] Phone: Start: 08-30-2015 Assay of magnesium MAGNESIUM (42342) [facility]; [facility] Work Phone: Start: 08-30-2015 Magnesium mass conc MAGNESIUM (22271) [facility] Work Phone: Start: 08-14-2015 HPV VACCINE (1 - 3-dose SCDM series) HPV VACCINE (1 - 3-dose SCDM series) [facility] Start: 08-09-2015 Provider Instructions for Treatment [facility] Work Phone: Start: 06-28-2015 Provider Instructions for Treatment [facility] Work Phone: Start: 06-28-2015 25 hydroxy includes fractions if performed CALCIFIDIOL (44572) VIT D 25 [facility] Work Phone: Start: 05-31-2015 Provider Instructions for Treatment [facility] Work Phone: Start: 05-31-2015 Protein mass conc Serum Protein Electrophoresis (SPEP) (96817) [facility] Work Phone: Start: 05-31-2015 Protein electrophoretic fractj&quantj serum [facility] Work Phone: Start: 05-31-2015 Protein mass conc (U) Urine Protein Electrophoresis (UPEP) (19851) [facility] Work Phone: Start: 05-29-2015 25 hydroxy includes fractions if performed CALCIFIDIOL (12044) VIT D 25 [facility] Work Phone: Start: 05-29-2015 Assay of folic acid serum Folate (22556) [facility] Work Phone: Start: 05-29-2015 Cobalamin (Vitamin B12) mass conc VITAMIN B-12 (CYANOCOBALAMIN) (08882) [facility] Work Phone: Start: 05-29-2015 Cyanocobalamin vitamin b-12 VITAMIN B-12 (CYANOCOBALAMIN) (09544) [facility]; [facility] Work Phone: Start: 05-29-2015 Assay of thyroid stimulating hormone tsh TSH (87407) [facility]; [facility] Work Phone: Start: 05-29-2015 Thyrotropin Qn TSH (03299) [facility] Work Phone: Start: 05-29-2015 Sedimentation rate rbc non-automated SED RATE ERYTHROCYTE (62829) [facility] Work Phone: Start: 05-29-2015 Rheumatoid factor quantitative RHEUMATOID FACTOR-QUANT (18764) [facility] Work Phone: Start: 05-29-2015 Comprehensive metabolic panel METABOLIC PANEL, COMPREHENSIVE (07265) [facility] Work Phone: Start: 05-29-2015 C-reactive protein C-REACTIVE PROTEIN (26271) [facility]; [facility] Work Phone: Start: 05-29-2015 CRP mass conc C-REACTIVE PROTEIN (61137) [facility] Work Phone: Start: 05-29-2015 Blood count complete automated CBC (AUTO) (99281) [facility] Work Phone: Start: 05-29-2015 Antinuclear antibodies efe EFE (ANTINUCLEAR ANTIBODY) (24173) [facility]; [facility] Work Phone: Start: 05-29-2015 Nuclear Ab IF titer (S) EFE (ANTINUCLEAR ANTIBODY) (66137) [facility] Work Phone: Start: 03-01-2015 Provider Instructions for Treatment Follow up in 6 weeks Apr 12 with [facility] sp[facility] Work Phone: Start: 02-26-2015 Provider Instructions for Treatment Follow up on Wednesday with [facility] Work Phone: Start: 2009 Screening for malignant neoplasm of cervix [facility] Start: 08-14-2007 DTaP/Tdap/Td vaccine (1 - Tdap) DTaP/Tdap/Td vaccine (1 - Tdap) [place] Start: 08-14-2007 Hepatitis B vaccination HEP B VACCINE (1 of 3 - 19+ 3-dose series) [facility] Start: 08-14-2007 Hepatitis B Vaccine (1 of 3 - 19+ 3-dose series) Hepatitis B Vaccine (1 of 3 - 19+ 3-dose series) [facility] Start: 08-14-2007 Third diphtheria, tetanus and acellular pertussis (DTaP) vaccination TDAP (ADULT) [facility] Start: 08-14-2007 Urine microalbumin profile DTAP,TDAP,TD (1 - Tdap) [facility] Start: 2006 Anxiety Screening Anxiety Screening [facility] Start: 2006 Depression Screening Depression Screening [facility] Start: 2006 HEPATITIS C SCREENING HEPATITIS C SCREENING [facility] Start: 2006 Hepatitis C screening Hepatitis C Screening [facility] Start: 2006 HIV SCREENING HIV SCREENING [facility] Start: 2006 HIV screening HIV Screening [facility] Start: 08-14-2003 HIV screening [facility] Start: 2000 Depression Screening Depression Screening [facility] Start: 1998 MENINGOCOCCAL B: Consider based on risk (1 of 4 - Increased Risk Bexsero 2-dose series) MENINGOCOCCAL B: Consider based on risk (1 of 4 - Increased Risk Bexsero 2-dose series) [facility] Start: 1993 COVID-19 VACCINE (#1) COVID-19 VACCINE (#1) [facility] Start: 1993 COVID-19 VACCINE (1) COVID-19 VACCINE (1) [facility] Start: 1990 MENINGOCOCCAL CONJUGATE (1 - Risk 2-dose series) MENINGOCOCCAL CONJUGATE (1 - Risk 2-dose series) [facility] Start: 1989 MMR Vaccines (1 of 1 - Standard series) MMR Vaccines (1 of 1 - Standard series) [facility] Start: 1989 Varicella vaccination Varicella Vaccines (1 of 2 - 2-dose childhood series) [facility] Start: 1989 Varicella vaccine (1 of 2 - 2-dose childhood series) Varicella vaccine (1 of 2 - 2-dose childhood series) [place] Start: 03-15-1989 MENINGOCOCCAL CONJUGATE (1 - Risk start 2-23 months series) MENINGOCOCCAL CONJUGATE (1 - Risk start 2-23 months series) [facility] Start: 03-15-1989 Meningococcal Vaccine (1 - Risk start 2-23 months series) Meningococcal Vaccine (1 - Risk start 2-23 months series) [facility] Start: 02-12-1989 COVID-19 VACCINE (#1) COVID-19 VACCINE (#1) [facility] Start: 1988 HEPATITIS B (1 of 3 - 3-dose series) HEPATITIS B (1 of 3 - 3-dose series) [facility] Start: 1988 Hepatitis B vaccination HEP B VACCINE (1 of 3 - 3-dose series) [facility] Start: 1988 Hepatitis B Vaccines (1 of 3 - 3-dose series) Hepatitis B Vaccines (1 of 3 - 3-dose series) [facility] Start: 1988 Hepatitis C screening HEPATITIS C VIRUS SCREENING [facility] Start: 1988 HIV screening HIV Screening [facility] Start: 1988 Medicare Advantage Annual Wellness Visit (AWV) Medicare Advantage Annual Wellness Visit (AWV) [facility] Start: 1988 Tetanus vaccination TETANUS [facility] ALERE STREP A TEST (AG) ALERE ST REP A TEST (AG) Lab Routine Sore throat Ordered: 10/11/2023 [facility] Work Phone: Comment on above: Ordered: 10/11/2023 End: 10-09-2019 Basic Metabolic Panel w/ Reflex to MG Basic Metabolic Panel w/ Reflex to MG Lab Routine Tomorrow AM for 1 Occurrences starting 10/09/2019 until 10/09/2019 [facility] [place] Comment on above: Tomorrow AM for 1 Occurrences starting 0 10/09/2019 until 10/09/2019 Beef IgE Ab [Units/volume] in Serum [facility] Blood ammonia measurement [facility] Blood ammonia measurement [facility] CBC W Auto Different ial panel - Blood [facility] Chocolate IgE Ab [Units/volume] in Serum [facility] Codfish IgE Ab [Units/volume] in Serum [facility] End: 04-06-2023 COLONOSCOPY DIAGNOSTIC COLONOSCOPY DIAGNOSTIC Endoscopy Routine Generalized abdominal pain Change in bowel habits 1 Occurrences starting 04/06/2022 until 04/06/2023 [facility] Work Phone: Comment on above: 1 Occurrences starting 04/06/2022 until 04/06/2023 COLPOSCOPY COLPOSCOPY Proce dures Routine LLOYD II (cervical intraepithelial neoplasia II) Cervical high risk human papillomavirus (HPV) DNA test positive Ordered: 04/29/2022 [facility] Work Phone: Comment on above: Ordered: 04/29/2022 Comprehensive metabo lic 1999 panel - Serum or Plasma [facility] Comprehensive metabo lic 1999 panel - Serum or Plasma [facility] Brandywine IgE Ab [Units/volume] in Serum [facility] Cow milk IgE Ab [Units/volume] in Serum [facility] Food RAST [facility] Initiate Oxygen Ther apy Protocol Initiate Oxygen Therapy Protocol Respiratory Care Routine Daily until discontinued starting 10/07/2019 [facility] Comment on above: Daily until discontinued starting 2019 Insertion intrauteri ne device iud INSERT INTRAUTERINE DEVICE Procedures Routine Encounter for IUD removal Pelvic pain in female Ordered: 07/24/2021 [facility] Work Phone: Comment on above: Ordered: 07/24/2021 Lamotrigine measurement [facility] Lamotrigine measurement [facility] End: 10-30-2022 MYOSITIS PANEL [facility] Comment on above: One Time for 1 Occurrences starting 10/03 until 10/30/2022 Patient Education [facility] Work Phone: Patient referral [facility] Work Phone: Peanut IgE Ab [Units/volume] in Serum [facility] Pork IgE Ab [Units/volume] in Serum [facility] Procedure [facility] Procedure [facility] Radionuclide gastric emptying study [facility] Removal intrauterine device iud REMOVE INTRAUTERINE DEVICE Procedures Routine Encounter for IUD removal Pelvic pain in female Ordered: 07/24/2021 [facility] Work Phone: Comment on above: Ordered: 07/24/2021 [place] IgE Ab [Units/volume] in Serum [facility] Shrimp IgE Ab [Units/volume] in Serum [facility] Soybean IgE Ab [Units/volume] in Serum [facility] SURGICAL PATHOLOGY SURGICAL PATH OLOGY Lab Routine ASCUS with positive high risk HPV cervical 08/20/2021 2:55 PM EDT [facility] Work Phone: T4 free measurement [facility] Thyroid stimulating hormone measurement [facility] Tuna IgE Ab [Units/volume] in Serum [facility] Urine culture [facility] Valproate [Mass/volu me] in Serum or Plasma [facility] Wheat IgE Ab [Units/volume] in Serum [facility] Whole Egg IgE Ab [Units/volume] in Serum [facility] XR Abdomen Single view [facility] Work Phone: [facility] Work Phone: [facility] Work Phone: [facility] Work Phone: [facility] Work Phone: [facility] Work Phone: [facility] Work Phone: [facility] Work Phone: [facility] Work Phone: [facility] Work Phone: [facility] Immunizations Immunization Date Immunization Notes Care Provider Fa cili 05-18-2023 meningococcal oligosaccharide (groups A, C, Y and W-135) diphtheria toxoid conjugate vaccine (MCV4O) Rupal Phillips MA [facility] 02-12-2023 meningococcal B vaccine, recombinant, OMV, adjuvanted [address] 02-12-2023 meningococcal oligosaccharide (groups A, C, Y and W-135) diphtheria toxoid conjugate vaccine (MCV4O) [address] 08-05-2020 HPV, unspecified formulation Physician Test [facility] 02-02-2020 influenza virus vaccine, unspecified formulation Ach Portable [facility] 10-26-2019 meningococcal B vaccine, fully recombinant Rupal Phillips MA [facility] 06-15-2019 meningococcal B vaccine, fully recombinant Rupal Phillips MA [facility] 06-15-2019 meningococcal polysaccharide (groups A, C, Y and W-135) diphtheria toxoid conjugate vaccine (MCV4P) Rupal Phillips MA [facility] 04-24-2019 meningococcal B vaccine, fully recombinant Dylan Velarde [facility]; [facility] Work Phone: 04-24-2019 meningococcal polysaccharide (groups A, C, Y and W-135) diphtheria toxoid conjugate vaccine (MCV4P) Dylan Velarde [facility]; [facility] Work Phone: 04-22-2019 meningococcal B vaccine, fully recombinant Rupal Phillips MA [facility] 04-22-2019 meningococcal polysaccharide (groups A, C, Y and W-135) diphtheria toxoid conjugate vaccine (MCV4P) Rupal Phillips MA [facility] 02-14-2019 Influenza virus vaccine [facility] 02-08-2015 Influenza virus vaccine [facility] Payers Date Payer Category Payer Medicaid [id number] 2024 Self-pay [id number] 2023 Medicare [id number] 2022 Medicare Other [facility] RX [id number] 2022 Medicaid (Non-manage d Care Plan) [facility] [id number] 08-31-2022 Unknown 12-01-2021 Medicaid [facility] [id number] 12/01/2021-Present [phone] [address] [place] [address] Medicaid [id number] 12-01-2021 Medicaid [id number]. [id number] 12-01-2021 Medicare [id number]. [id number] 12-01-2021 Medicare (Managed Care) [facility] [id number] 12-01-2021 Unknown [id number] 10-31-2021 Medicare MEDICARE MEDICAR E A AND B [id number] 10/31/2021-Present [phone] [place] [address] Medicare [id number] 06-03-2019 Medicaid [id number] 06-03-2019 Medicaid [employer] MEDICAID [id number] 06/03/2019-Present [phone] [address] [place] [address] Medicaid [id number] 06-30-2018 Unknown [employer] M EDICAL MUTUAL [address] xxxxxxxxxxxx 2018-Present [phone] [address] [place] [address] xxxxxxxxxxxx [id number] [id number] 08-31-2013 Unknown [id number] 1988 Unknown [id number] 2.16840.1.236257.3.579. 2.716 1988 Unknown [id number] 2.16840.1.202963.3.579. 2.594 1988 Unknown [id number] 2.16840.1.762462.3.579. 2.594 1988 Unknown [id number] 2.16840.1.952128.3.579. 2.594 1988 Unknown [id number] 2.840.1.578250.3.579. 2.594 1988 Unknown [id number] 2.16840.1.481205.3.579. 2.594 1988 Unknown [id number] 2.16840.1.447051.3.579. 2.594 1988 Unknown [id number] 2.16.840.1.675717.3.579. 2.594 1988 Unknown [id number] 2.16840.1.604554.3.579. 2.594 Unknown [id number] 2.16840.1.660724.3.579. 2.462 Unknown [id number] 2.16840.1.285227.3.579. 2.462 Unknown [id number] 2.16.840.1.185775.3.579. 2.462 Unknown [id number] 2.16.840.1.691567.3.579. 2.462 Unknown [id number] 2.16840.1.562838.3.579. 2.462 Unknown [id number] 2.16.840.1.855577.3.579. 2.462 Unknown [id number] 2.16.840.1.865770.3.579. 2.462 Unknown [id number] 2.16.840.1.721944.3.579. 2.462 Unknown [id number] 2.16.840.1.615127.3.579. 2.462 Unknown [id number] 2.16840.1.389694.3.579. 2.462 Unknown [id number] 2.16840.1.430225.3.579. 2.462 Unknown [id number] 2..840.1.201112.3.579. 2.462 Unknown [id number] 2..840.1.947844.3.579. 2.462 Unknown [id number] 2.840.1.855343.3.579. 2.462 Unknown [id number] 2.840.1.784137.3.579. 2.462 Unknown [id number] 2.840.1.096264.3.579. 2.462 Unknown [id number] 2.840.1.870029.3.579. 2.462 Unknown [id number] 2..840.1.762880.3.579. 2.462 Unknown [id number] 2.840.1.199147.3.579. 2.462 Unknown [id number] 2.840.1.395356.3.579. 2.462 Unknown [id number] 2.16.840.1.177656.3.579. 2.462 Unknown [id number] 2.16.840.1.794286.3.579. 2.462 Unknown [id number] 2.16.840.1.288578.3.579. 2.462 Unknown [id number] 2.16.840.1.848586.3.579. 2.462 Unknown [id number] 2.16.840.1.910060.3.579. 2.462 Unknown [id number] 2.16.840.1.210202.3.579. 2.462 Unknown [id number] 2.16.840.1.410201.3.579. 2.462 Unknown [id number] 2.16.840.1.559460.3.579. 2.462 Unknown [id number] 2.16.840.1.546262.3.579. 2.462 Worker's Compensation [id number] Social History Date Type Detail Facility Start: 10-07-2019 End: 10-06-2022 Tobacco smoking status NHIS Never smoker [facility] Start: 10-07-2019 End: 10-11-2023 Alcohol intake Current non-drinker of alcohol (finding) [employer] [place], [place] Start: 1990 Sex Assigned At Not on file [place], [place] Exposure to SARS-CoV -2 (event) Unable to assess [facility] [place] Start: 10-07-2019 End: 10-06-2022 Tobacco use and exposure [facility] used [facility] Start: 07-06-2021 End: 10-30-2022 Exposure to SARS-CoV-2 (event) Not sure [facility] Start: 02-17-2021 End: 10-29-2022 Tobacco smoking status NHIS Unknown if ever smoked [facility] Start: 10-10-2019 None [facility] Start: 10-10-2019 Alone [facility] Start: 10-11-2019 Non-smoker [facility] Start: 1990 Sex Assigned At Female W [facility] Start: 07-30-2022 End: 07-31-2022 History SDOH IPV Fear 2 [facility] Start: 10-06-2022 End: 10-28-2023 Alcohol intake Lifetime non-drinker (finding) [facility] Start: 07-31-2022 End: 10-28-2023 History of Social function [facility] Start: 07-31-2022 End: 10-28-2023 Humiliation, Afraid, Rape, and Kick questionnaire [HARK] [facility] [employer] Within the last year , have you been afraid of your partner or ex-partner? No [employer] Number of Places Deborah ed in the Last Year Not on file [facility] Start: 09-10-2022 End: 07-26-2024 Sex Female (finding) [facility] NEGATED: Highlighted row [facility] Medical Equipment Procedure Code Equipment Code Equipment [...] port PORT,POWER 8FR FDA Start: 10-16-2020 Port-10/16/2020 [id number] Start: 10-16-2020 Comment on above: Description: R inter nal jugular powerport Goals Date Patient Goal Desired Activity /State Functional Status Date Assessment Result Facility 10-29-2022 Are you deaf, or do you have serious difficulty hearing No 10/29/2022 10:25 PM Juanito Lee RN No [facility] 10-29-2022 Are you blind, or do you have serious difficulty seeing, even when wearing glasses No 10/29/2022 10:25 PM Juanito Lee, VANESSA No [facility] 10-29-2022 Do you have serious difficulty walking or climbing stairs No 10/29/2022 10:25 PM Juanito Lee, VANESSA No [facility] 10-29-2022 Do you have difficul ty dressing or bathing Yes 10/29/2022 10:25 PM Juanito Lee, VANESSA Yes [facility] 10-29-2022 Because of a physica l, mental, or emotional condition, do you have difficulty doing errands alone such as visiting a physician's office or shopping No 10/29/2022 10:25 PM Juanito Lee, VANESSA No [facility] 06-12-2014 Are you deaf, or do you have serious difficulty hearing No 06/12/2014 2:37 PM Estella Pozo MA No [facility] 06-12-2014 Are you blind, or do you have serious difficulty seeing, even when wearing glasses No 06/12/2014 2:37 PM Estella Pozo MA No [facility] 06-12-2014 Do you have serious difficulty walking or climbing stairs No 06/12/2014 2:37 PM Estella Pozo MA No [facility] 06-12-2014 Do you have difficul ty dressing or bathing No 06/12/2014 2:37 PM Estella Pozo MA No [facility] 06-12-2014 Because of a physica l, mental, or emotional condition, do you have difficulty doing errands alone such as visiting a physician's office or shopping Yes 06/12/2014 2:37 PM Estella Pozo MA Yes [facility] Mental Status Date Assessment Result Facility 01-27-2025 Cognitive function Appropriate [facility] Work Phone: 01-27-2025 Cognitive function Voice/Name [facility] Work Phone: 11-04-2024 Cognitive function Voice/Name [facility] Work Phone: 10-06-2024 Cognitive function Voice/Name [facility] Work Phone: 08-18-2024 Cognitive function Level Of Cons ciousness Awake;Alert;Appropriate;Fol lows Commands [facility] Work Phone: 10-29-2022 Because of a physica l, mental, or emotional condition, do you have serious difficulty concentrating, remembering, or making decisions No 10/29/2022 10:25 PM Juanito Lee, VANESSA No [facility] 10-29-2022 Cognitive function Level Of Cons ciousness Awake;Alert [facility] Work Phone: 08-08-2022 Cognitive function Voice/Name [facility] Work Phone: 02-05-2022 Cognitive function Voice/Name [facility] Work Phone: 01-12-2022 Cognitive function Voice/Name [facility] Work Phone: 10-17-2021 Cognitive function Voice/Name [facility] Work Phone: 08-15-2021 Cognitive function Level Of Cons ciousness Awake;Alert;Appropriate;Fol lows Commands [facility] Work Phone: 06-12-2014 Because of a physica l, mental, or emotional condition, do you have serious difficulty concentrating, remembering, or making decisions No 06/12/2014 2:37 PM EST Estella Francisco MA [facility] Clinical Notes 01-15-2014 to 02-22-2025 Telephone Encounter - Rupal Phillips MA - 02/22/2025 8:52 AM EDTTelephone Encounter - Rupal Phillips MA - 02/22/2025 8:52 AM EDTTelephone Encounter - Lesly Orozco - 02/07/2025 8:50 AM EDT Note Date & Type Note Facility 02-22-2025 Telephone encount er Note Images from the original note were not included. [facility] 02-22-2025 Miscellaneous Notes Formattin g of this note might be different from the original. Images from the original note were not included. Plan will not let me renew until after 02/20 term date as claim still pays out without issues-- will make note to renew on or after 02/20 Requested PA for Valtoco 10 MG Dose 10 MG/0.1ML Liquid Lesly Orozco Images from the original note were not included. *Documentation only- I did not speak with the patient. CoverMyMeds ? Checked for previous INSURANCE encounter Current auth expires 02/20/2025 ?Checked med list or last office note, pt is currently taking medication ?Checked prescribing provider documented in this encounter [facility] 02-07-2025 Telephone encount er Note Plan will not let me renew until after 02/20 term date as claim still pays out without issues-- will make note to renew on or after 02/20 [facility] 02-07-2025 Miscellaneous Notes Formattin g of this note might be different from the original. Plan will not let me renew until after 02/20 term date as claim still pays out without issues-- will make note to renew on or after 02/20 Requested PA for Valtoco 10 MG Dose 10 MG/0.1ML Liquid Lesly Orozco Images from the original note were not included. *Documentation only- I did not speak with the patient. CoverMyMeds ? Checked for previous INSURANCE encounter Current auth expires 02/20/2025 ?Checked med list or last office note, pt is currently taking medication ?Checked prescribing provider documented in this encounter [facility] 02-06-2025 Telephone encount er Note Requested PA for Valtoco 10 MG Dose 10 MG/0.1ML Liquid Lesly Orozco [facility] 02-06-2025 Miscellaneous Notes Formattin g of this note might be different from the original. Requested PA for Valtoco 10 MG Dose 10 MG/0.1ML Liquid Lesly Orozco Images from the original note were not included. *Documentation only- I did not speak with the patient. CoverMyMeds ? Checked for previous INSURANCE encounter Current auth expires 02/20/2025 ?Checked med list or last office note, pt is currently taking medication ?Checked prescribing provider documented in this encounter [facility] 01-29-2025 Note HNO ID: [id number] Author: MEL SPARROW RN Service: Care Management Author Type: Registered Nurse Type: Care Mgt Initial Assessment Filed: 01/29/2025 13:03 Note Text: CARE MANAGEMENT: ASSESSMENT AND DISCHARGE PLAN SERVICE DATE: January 29, 2025 SERVICE TIME: 12:59 PM PCP: Dylan Velarde CNP Primary Contact: Extended Emergency Contact Information Primary Emergency Contact: Karen Flanagan Mobile Relation: Father Secondary Emergency Contact: FlanaganGenny Mobile Relation: Mother Admission Status: Inpatient Insurance Provider: DELFINO GODFREYGAUDENCIO MEDICARE Discharge Planning requested by: Per Department Practice Potential Transition Plans Home, No Services Indicated Advance Directives Current Advance Directive: None Dry Clipper Tender Attempted to Assist with AD Completion: Yes Action: Education Provided Current Living Arrangements and Support Lives with: Children Type of Residence: Private Residence (House) Support: Children, Family members, Parent How do you manage to accomplish the following: Independent: Ambulation, Bathe/Shower, Dress, Meals/Meal Prep, Going to the bathroom, Medication Management Needs Assistance: Transportation to appointments/community Current Services/Equipment Current Post-Acute Service(s): DME Current DME Type: Shower seat, Grab bars, Elevated toilet seat Discharge Planning Patient Goal(s): General wellness, Be able to go home [place] Explained: [place] Given: No Reason Not Given: No placements necessary Are you interested in bedside delivery of your medications? Yes Discharge Planning Participant(s): Patient, Parents Patient/Family Comments: Caregiver Assessment: Caregiver is ready, willing and able to meet the patient's needs as recommended by the inter-professional team: Yes Name of Caregiver: parents Transport at Discharge: Transportation Arrangements: Car Date of Trip: 01/29/25 Destination: home Needs Prior to Discharge: Needs Prior to Discharge: Ready for Discharge Post-Acute Discharge Plan: Spoke with patient and mother at bedside. Introduced CM self and role. Patient lives at home with her 13 year old son. Parents live nearby and provide partition assembly machine operator assistance AND transportation as needed. +PCP. +Rx. +DME utilizes shower chair, grab bars, elevated toilet. Patient is discharging to her parent's home with her son for additional support and assistance after discharge. Mother to transport. No transitional care needs identified. SIGNATURE: Mel Sparrow RN PATIENT NAME: Doug Flanagan DATE: January 29, 2025 TIME: 12:59 PM [facility] 01-29-2025 Note HNO ID: [id number] Author: ELOISE REILLY RPh Service: Pharmacy Author Type: Pharmacist Type: Plan of Care Filed: 01/29/2025 12:26 Note Text: DISCHARGE MEDICATION REVIEW BY PHARMACY Patient Name: Doug Flanagan Account #: Data Unavailable Admission Date: 01/27/2025 Date of Contact: January 29, 2025 Time of Contact: 12:23 PM Medication list was reviewed by a Pharmacist for drug interactions or drug related problems:Yes Below is a summary of pharmacist recommendations discussed with LIP: No recommendations at this time from discharge medication list. Eloise Reilly RPh Pager: [phone] 01/29/2025 12:23 PM Medication List START taking these medications divalproex ER 500 mg 24 hr tablet Commonly known as: DEPAKOTE ER Take 1 tablet by mouth two times a day. NAYZILAM 5 mg/spray (0.1 mL) nasal spray Generic drug: midazolam Use 1 spray in the nose as needed for seizures lasting longer than 3 minutes for up to 180 days. May repeat dose in alternate nostril after 10 minutes based on response and tolerability. CHANGE how you take these medications lamoTRIgine ER 50 mg 24 hr tablet Commonly known as: LaMICtal XR Take 3 tablets by mouth two times a day. What changed: medication strength how much to take Another medication with the same name was removed. Continue taking this medication, and follow the directions you see here. zonisamide 100 mg capsule Commonly known as: ZONEGRAN Take 2 capsules by mouth every morning AND 3 capsules daily at bedtime. What changed: See the new instructions. CONTINUE taking these medications acetaminophen 325 mg tablet Commonly known as: TYLENOL escitalopram oxalate 10 mg tablet Commonly known as: LEXAPRO levonorgestrel 21 mcg/24hr (up to 8 yrs) 52 mg IUD Commonly known as: MIRENA ULTOMIRIS 100 mg/mL injection Generic drug: ravulizumab-cwvz STOP taking these medications VALTOCO 10 mg/spray (0.1 mL) nasal spray Generic drug: diazePAM Where to Get Your Medications These medications were sent to Pending sale to [facility] [address] [place] [address] [place] [address] divalproex ER 500 mg 24 hr tablet lamoTRIgine ER 50 mg 24 hr tablet NAYZILAM 5 mg/spray (0.1 mL) nasal spray zonisamide 100 mg capsule [facility] 01-29-2025 Note HNO ID: [id number] Author: EDDIE BALES MD Service: Neurology Adult Epilepsy Author Type: Physician Type: Plan of Care Filed: 01/29/2025 11:32 Note Text: Epilepsy attending note Summary: Doug Flanagan is a 34 year old female with history of generalized epilepsy, myasthenia gravis now admitted after a breakthrough seizure. Updates: No clinical seizures reported. Overnight EEG without seizures. Prelim report notes generalized polyspikes and spikes consistent with known diagnosis of generalized epilepsy. Depakote was added on 01/28/2025, lamotrigine dose reduced in half and zonisamide was continued. Impression: Generalized epilepsy, medically refractory Breakthrough seizures Myasthenia gravis Recommendations: Continue Depakote ER 500 mg twice daily Continue lamotrigine ER 150 mg twice daily Continue zonisamide 200 mg - 300 mg Discontinue EEG today Check CBC, CMP, Depakote level, lamotrigine level, zonisamide level, ammonia in 4 weeks Patient was offered a follow-up appointment with the [facility] epilepsy team, prefers to follow-up with her primary neurologist Dr. Conroy. I will sign off at this time. Please reach out epilepsy team if you have any concerns or questions. Seizure precautions - No driving in the state [facility] until seizure free for 6 months. Please check with local state authorities for state specific driving regulations. - No operating heavy machines - No swimming without supervision or bathing in a bathtub due to risk of drowning in the event of a seizure. Patient may shower. - Avoid unsafe heights, including ladders, due to risk of fall-related injury in the event of a seizure. - Seizure precipitating factors discussed including not taking seizure medications as prescribed, stress, excessive caffeine intake, energy drinks, alcohol, sleep deprivation or any identifiable seizure precipitating factor. Eddie Bales MD Associate Staff, Epilepsy [facility] 01/29/2025 Office phone: [phone] For any questions, please call or chat with the Epilepsy on-call provider by using the following [employer] link: [email or web address] [facility] 01-28-2025 Note HNO ID: [id number] Author: TRICE SAUNDERS DO Service: Hospital Medicine Author Type: Physician Type: Progress Notes Filed: 01/28/2025 11:40 Note Text: DEPARTMENT OF HOSPITAL MEDICINE PROGRESS NOTE SERVICE DATE: 01/28/2025 SERVICE TIME: 11:38 AM Hospital Medicine/Primary Attending: Trice Saunders DO NIGHT AND WEEKEND COVERAGE: [place] COVERAGE: After 7pm, please call cross cover pager #[phone] Subjective INTERVAL HPI: c/o post-seizure headache. Seizures are typically grandmal. States her rescue medication did not work MEDICATIONS: Reviewed Objective PHYSICAL EXAM: BP 107/69 Pulse 98 Temp (Src) 97.8 (Oral) Resp 16 Ht 5' 3 (1.60m) Wt 162 lb 4.1 oz (73.6kg) SpO2 95% LMP 03/18/2022 BMI 28.75 kg/(m2). O2 Therapy: Room Air General - NAD, Calm CV - RRR S1 S2 RESP - CTA B/L ABD - soft, NT, ND +BS EXT - no edema NEURO - nl speech, moving all extremities Lines, Drains, and Airways Line Duration Implanted Vascular Access Device Single Port 01/27/25 2226 Right Chest <1 day Peripheral 01/27/25 2219 [facility] Left Wrist 22 Gauge <1 day DATA: Diagnostic tests reviewed for today's visit: Most recent labs and imaging results. Assessment/Plan Breakthrough seizure; epilepsy: on zonisamide 200mg in am and 300mg pm, lamotrigine 300 mg twice daily. Follow-up levels. Epilepsy consult in place, continue seizure precautions Depression: lexapro 10mg qhs Medication and Non-Pharmacologic VTE Prophylaxis/Anticoagulants 01/27/252129 activity - mobilize patient (vt,tn) VTE Prophylaxis: VTE prophylaxis appropriate Disposition: To be determined Plan of care discussed with: Provider, RN, Patient SIGNATURE: Trice Saunders DO PATIENT NAME: Doug Flanagan DATE: January 28, 2025 TIME: 11:38 AM etx [id number] [facility] 01-27-2025 Discharge summary [facility] 01-27-2025 Radiology Diagnostic study note [facility] Imaging Services [address] [place] [address] Brain/Head without Contrast MR#: [id number] Acct: [id number] Name: DOUG FLANAGAN Rep #: [id number] : 1990 F 34 From: Ismael Montilla MD PCP: Dr. Leander Patel MD Status: R EG ER Study:Brain/Head without Contrast Date of Exa m: 01/27/25 Exam# [id number] Ordering Dr: Zulma Rausch DO PROCEDURE: CT BRAIN/HEAD WITHOUT CONTRAST 01/27/2025 REASON FOR EXAM: SEIZURE TECHNIQUE: Procedure Code: CTBR Modality: CT Procedure: BRAIN/HEAD WITHOUT CONTRAST Coronal and Sagittal reconstruction series were provided. One or more dose reduction techniques were used (e.g., Automated exposure control, adjustment of the mA and/or kV according to patient size, use of iterative reconstruction technique. RADIATION DOSE SUMMARY: CTDlvol: 44.99 mGy DLP: 829.85 mGycm COMPARISON: 10/06/2024 FINDINGS: No acute intracranial hemorrhage, extra-axial collection, mass effect or acute infarct. Ventricles and subarachnoid spaces are normal in size. Orbital contents are unremarkable. Intact skull base and calvarium. Clear paranasal sinuses and mastoid air cells. CT/Brain/Head without Contrast IMPRESSION: Unremarkable head CT. Reading Location: [id number] CC: Dr. Leander Patel MD; Dr. Kaiden Rausch DO ~ Resource Room Teacher: Signed [facility] 01-27-2025 Radiology Diagnostic study note [facility] Imaging Services [address] [place] [id number] Chest PA and Lateral MR#: [id number] Acct: [id number] Name: DOUG FLANAGAN Rep #: [id number] : 1990 F 34 From: David Bragg MD PCP: Dr. Leander Patel MD Status: R EG ER Study:Chest PA and Lateral Date of Exam: 01/27/25 Exam# [id number] Ordering Dr: Zulma Rausch DO PROCEDURE: CHEST PA AND LATERAL 01/27/2025 REASON FOR EXAM: SOB TECHNIQUE: Procedure Code: RADCXR Modality: DX Procedure: CHEST PA AND LATERAL COMPARISON: 10/13/2024 FINDINGS: Hardware: Right-sided MediPort unchanged. Heart: The heart size is normal. Mediastinum: The mediastinal contour is unremarkable. Lungs: The lungs are clear. No pneumothorax or pleural effusion. Bones: The bones are unremarkable. RAD/Chest PA and Lateral IMPRESSION: NO ACUTE FINDINGS. Reading Location: [facility] CC: Dr. Leander Patel MD; Dr. Kaiden Rausch DO ~ Resource Room Teacher: Signed [facility] 01-27-2025 Discharge summary Note Date/Time January 27, 2025 6:39pm [facility] Medical Records Department [address] [place] [address] Emergency Department Summary 01/27/25 MR#: [id number] Acct: [id number] Name: DOUG FLANAGAN Rep #:[id number] : 1990 34 From: Kaiden Rausch DO PCP: Dr. Leander Patel MD Status:R EG ER Location: ED ADDENDUM by Dr. Kaiden Rausch DO on 01/27/25 at 1839 Patient's EKG reviewed showed sinus rhythm rate of 83 bpm the GA interval normalat 176. 01/27/25 1839<Electronically signed by Kaiden Rausch DO> Cosigner Signature (if applicable): cc: Dr. Leander Patel MD ~* Signed HPI History of Present Illness Chief Complaint: Seizure Narrative Narrative: Patient is a 34-year-old female with past medical history of seizures, myasthenia gravis, anemia, peripheral vascular disease, gastroparesis who presents to the emergency department chief complaint of seizure. According to the patient she was at home resting and her service dog alerted her that she hasnot have a seizure. States that she took her Diazepam however this did not work. Mother at bedside states that within the usually 10 minutes the medication usually works however this was not the case today. States that her daughter was complaining some difficulty breathing therefore she called EMS to have her brought here to be further evaluated. Mother notes the last time she was here since they were not listening to us she ended up intubated she statesthat she had to be transferred to [place] at that point time. Patient today states that she has no complaints she feels well and has no complaints before this states that she has been feeling her normal self. Mother at bedside notes that she had blood work obtained recently as well. [facility] Medical History Upper respiratory infection Gastroparesis Dietary counseling Encounter to establish care Chronic abdominal pain Chronic constipation Hx of peripheral vascular disease Normal echocardiogram (~05/18/16) Anemia Migraine headache Injury of head and neck Seizures Difficulty swallowing Difficulty chewing Non-smoker Shortness of breath on exertion Leg cramps History of stress test Chest pain Myasthenia gravis Home Medications ?Medication ?Instructions ?Recorded ?Last Taken ?Type levonorgestrel (Mirena) 20 mcg intrauterine UD 10/14/20 Unknown History control diazepam 10 mg/spray (0.1 mL) See Rx Instructions .Rou te 11/07/24 01/27/25 Rx nasal spray (Valtoco) .COMPLEX Seizures #5 sprays escitalopram oxalate 10 mg tablet 10 mg PO QHS #30 tab s 11/07/24 Unknown Rx (Lexapro) ravulizumab-cwvz 100 mg/mL 3,300 mg (33 mL) .Route .q8 weeks 11/07/24 Unknown Rx intravenous solution (Ultomiris) #33 mL zonisamide 100 mg capsule See Rx Instructions .Route 0 11/07/24 Unknown Rx .COMPLEX seizures #150 caps lamotrigine 300 mg tablet,extended 300 mg PO BID #60 t abs 12/12/24 Unknown Rx release 24 hr lubiprostone 8 mcg capsule 8 mcg PO DAILY 01/27/25 Unk nown History Allergy/AdvReac Type Severity Reaction Status Date / Time barium sulfate Allergy Severe Other Verified 01/11/25 13:43 levetiracetam (From Keppra) Allergy Other Verified 01/11/25 13:43 Penicillins Allergy Rash Verified 01/11/25 13:43 phenytoin (From Dilantin) Allergy PT UNSURE Verified 01/11/25 13:43 OF REACTION prochlorperazine (From Allergy Other Verified 01/11/25 13:43 Compazine) shellfish derived Allergy Other Verified 01/11/25 13:43 technetium-99m AdvReac Severe Other Verified 01/11/25 13:43 soy AdvReac NEEDS Verified 01/11/25 13:43 FOLLOW-UP Family History Mother Heart disease Cervical [...] safe at home: Yes ROS ROS ED ROS Narrative Constitutional: Denies any headache, lightness, dizziness, fevers, chills Eyes: Denies double vision Cardiovascular: Denies chest pain Respiratory: Complains of shortness of breath as noted above denies coughing wheezing Abdomen: Denies any abdominal pain : Denies any urinary symptoms Neurological: Denies any numbness, weakness, tingling Musculoskeletal: Denies any back pain Skin: Denies any rashes or lesions EXAM Physical Exam Narrative Exam Narrative: General: Patient lying in bed rest comfortably did not appear to be in acute distress Head: Atraumatic, normocephalic Eyes: PERRL bilaterally, EOMI bilaterally, no conjunctival injection noted Neck: Soft, supple, trachea midline Cardiovascular: Regular rate and rhythm no murmurs gallops rubs noted Respiratory: Clear to auscultation bilaterally no rales rhonchi or wheeze noted Abdomen: Soft, nondistended, no tenderness to palpation Extremities: Patient moving all extremities, radial pulses +2/4 in the bilateralextremities Neurological: Patient following commands that she was at [facility] year is 2024. NIH of 0 GCS 15 Skin: Warm, dry, intact no rashes or lesions noted Const Vital Signs: 01/27/25 14:09 01/27/25 16:08 01/27/25 17:22 Temperature 97.9 F 98.1 F Temperature Source Oral Oral Pulse Rate 98 91 70 Respiratory Rate 16 16 16 Blood Pressure 132/92 H 121/74 H 121/75 H Blood Pressure Mean 105 89 90 Pulse Ox 93 100 96 Oxygen Delivery Method Room Air Room Air Room Air MDM MDM MDM Narrative Medical decision making narrative: Patient is a 34-year-old female who presented to the emergency department the chief complaint of seizure. On the differential diagnose includes but not limited to breakthrough seizure, medication noncompliance, electrolyte abnormality, . Once workup is obtained reviewed she will be reevaluated. Patient already had diazepam prior to arrival here to the emergency department right before her seizure. Patient's zonisamide level 01/18/2025 was reviewed and showed 22.8 this is withinnormal limits. Patient's lamotrigine level was within normal limits at 12. Patient's ammonia level at that point time as well was normal at 37.3. Patient CBC reviewed and showed no evidence leukocytosis white blood cell normal8.1, heme was 13.6, plate count was noted be 271. Patient sodium is 141, potassium low at 3.4, creatinine 0.69. Patient's AST and ALT are 13 and 10 respectively. Patient test negative, urinalysis reviewed and showed negative nitrites negative leukocyte esterase 0-5 white cells with 1+ bacteria. Patient did have a another seizure here in the emergency department she was given 2 mg of IV Ativan. Once patient returned to baseline mental status she was given a another dose of her Lamictal here in the emergency department 200 mg. At this point time discussed case with [facility] For transfer given her multiple seizures and a recent history of going into status epilepticus after similar events. Spoke with hospitalist Dr. Mims who accept the patient for transfer. Patient was notified as well as mother at bedside all questions earnsanswered. Lab Data Labs: Laboratory Results - last 24 hr 01/27/25 01/27/25 14:44 15:35 WBC 8.1 RBC 4.59 Hgb 13.6 Hct 40.7 MCV 88.7 MCH 29.6 MCHC 33.4 RDW Std Deviation 41.8 RDW Coeff of Mariella 12.9 Plt Count 271 MPV 9.1 Immature Gran % (Auto) 0.400 Neut % (Auto) 82.1 H Lymph % (Auto) 11.9 L Bosque % (Auto) 4.6 Eos % (Auto) 0.6 Baso % (Auto) 0.4 Absolute Neuts (auto) 6.6 Absolute Lymphs (auto) 0.96 Nucleated RBC % 0 Sodium 141 Potassium 3.4 Chloride 110 H Carbon Dioxide 19.2 L Anion Gap 12 BUN 10 Creatinine 0.69 L Est GFR (MDRD) Non-Af 115 BUN/Creatinine Ratio 14.0 Glucose 96 Calcium 9.3 Total Bilirubin 0.30 AST 13 ALT 10 Alkaline Phosphatase 85 Total Protein 6.9 Albumin 4.3 Globulin 2.6 Albumin/Globulin Ratio 1.6 Serum , Qual NEGATIVE Urine Color Yellow Urine Clarity Sl. Cloudy Urine pH 6.0 Ur Specific Bluebell 1.010 Urine Protein 15 H Urine Glucose (UA) Normal Urine Ketones Negative Urine Occult Blood 25 H Urine Nitrite Negative Urine Bilirubin Negative Urine Urobilinogen Normal Ur Leukocyte Esterase Negative Urine RBC 5-10 SEEN Urine WBC 0-5 SEEN Ur Squamous Epith Cells 5-10 SEEN Urine Bacteria 1+ Urine Mucus 0 SEEN Radiography Diagnostic Testing: Clinical Impression(s) from Imaging Studies Chest X-Ray 01/27/25 14:55 IMPRESSION: NO ACUTE FINDINGS. Reading Location: [facility] Brain CT 01/27/25 15:23 IMPRESSION: Unremarkable head CT. Reading Location: [facility] Discharge Plan Triage Chief Complaint: Seizure ED Provider: Kaiden Rausch Dx/Rx/DC Orders Clinical Impression: Breakthrough seizure, Epilepsy, Myasthenia gravis, Anxiety Prescriptions: No Action Valtoco 10 mg/spray (0.1 mL) spray,non-aerosol See Rx Instructions .ROUTE .COMPLEX Qty: 5 0RF Rx Instructions: 1 spray intranasally daily as needed for breakthrough seizures. zonisamide 100 mg capsule See Rx Instructions .ROUTE .COMPLEX Qty: 150 4RF Rx Instructions: Take 2 capsules orally every morning and 3 capsules every evening. Ultomiris 100 mg/mL solution 3,300 mg .Route .q8 weeks Qty: 33 2RF Rx Instructions: 3300 mg IV infusion over 1 hour every 8 weeks. escitalopram oxalate [Lexapro] 10 mg tablet 10 mg PO QHS Qty: 30 4RF lamotrigine 300 mg tablet extended release 24hr 300 mg PO BID Qty: 60 2RF Mirena 20 mcg/24 hours (6 yrs) 52 mg Intrauterine Device 20 mcg INTRAUTERINE UD Patient Comments: already placed lubiprostone 8 mcg capsule 8 mcg PO DAILY Primary Care Provider: Leander Patel Referrals: Leander Patel MD [Primary Care Provider, Internal Medicine] Print Language: Kenyan Disposition Disposition: DC/Tx to Another Type of HCF What to do if you have Problems For any increased pain, shortness of breath, bleeding, nausea or vomiting, chestpain, or any unexpected problems, contact your Primary Care Provider. Call [facility] ([phone]) or report to the closest Emergency Room. Call 911 if necessary. 01/27/25 183 <Electronically signed by Kaiden Rausch DO> Cosigner Signature (if applicable): CC: Dr. Leander Patel MD ~ Signed [facility] Work Phone: [phone] 465-683309-22-2025 Telephone encounter Note* Telephone Encounter - Rupal Phillips MA - 01/22/2025 11:20 AM EDT Images from the original note were not included. *Documentation only- I did not speak with the patient. CoverMyMeds ? Checked for previous INSURANCE encounter Current auth expires 02/20/2025 ?Checked med list or last office note, pt is currently taking medication ?Checked prescribing provider [facility]07-05-2025 Discharge summary [facility] Medical Records Department [address] [place] [address] Emergency Department Summary 11/04/24 MR#: [id number] Acct: [id number] Name: MASHADOUG BRADLEY Rep #:[id number] : 1990 34 From: Everardo Espinoza MD PCP: Status:REG ER Location: ED HPI History of Present Illness Chief Complaint: Seizure Informant: patient, parent and EMS Narrative Narrative: 34-year-old female with a history of epilepsy had a seizure just prior to arrival. Was witnessed bymom, patient felt it coming on. She did not fall or injure herself. Seizure lasted a total of less than 5 minutes, mother saw her turning blue in the face and so thought she was not breathing well and gave her intranasal diazepam. Upon EMS arrival, she was postictal, and gradually came around and now she is alert and feels back to normal except for being very nauseated and states she has a mild headache. No focal neurologic symptoms no vision changes. She denies any recent illness. She states she stayed up almostall night last night for 03 November to watch fireworks and did not get to bed until about 3 AM and got up around 8 AM. She does not usually do that. She is been compliant with her antiepileptics, and states that he saw her neurologist recently and had levels drawn and everything looked good. She took her doses this morning. She denies any drug use. She has a history of myasthenia gra vis,she has not been having any specific flareup symptoms lately. [facility] Medical History Gastroparesis Dietary counseling Encounter to establish care Chronic abdominal pain Chronic constipation Hx of peripheral vascular disease Normal echocardiogram (~05/18/16) Anemia Migraine headache Injury of head and neck Seizures Difficulty swallowing Difficulty chewing Non-smoker Shortness of breath on exertion Leg cramps History of stress test Chest pain Myasthenia gravis Home Medications ?Medication ?Instructions ?Recorded ?Last Taken ?Type levonorgestrel (Mirena) 20 mcg intrauterine UD 10/14/20 Unknown History control diazepam 10 mg/spray (0.1 mL) 10 mg intranasal PRN PRN Seizures 08/08/22 Unknown History nasal spray (Valtoco) zonisamide 100 mg capsule 300 mg (3 x 100 mg) PO QPM 1 06/13/23 Unknown Rx seizures #90 caps escitalopram oxalate 10 mg tablet 10 mg PO QHS #30 tab s 07/06/24 Unknown Rx (Lexapro) lamotrigine 250 mg tablet,extended 250 mg PO BID seizu res #60 tabs 07/06/24 Unknown Rx release 24 hr zonisamide 100 mg capsule See Rx Instructions .Route 0 07/06/24 Unknown Rx .COMPLEX seizures #150 caps ravulizumab-cwvz 100 mg/mL 3,300 mg (33 mL) .Route .q8 weeks 07/27/24 Unknown Rx intravenous solution (Ultomiris) #33 mL lubiprostone 8 mcg capsule 8 mcg PO QDAY #30 caps 10/01 Unknown Rx (Amitiza) lidocaine HCl 2 % mucosal solution 10 ml PO TID PRN pa in #100 mL 10/13/24 Unknown Rx (Lidocaine Viscous) ondansetron 4 mg disintegrating 4 mg PO Q6H PRN nausea and 10/13/24 Unknown Rx tablet vomiting #14 tabs Allergy/AdvReac Type Severity Reaction Status Date / Time barium sulfate Allergy Severe Other Verified 11/02/24 14:09 levetiracetam (From Keppra) Allergy Other Verified 11/02/24 14:09 Penicillins Allergy Rash Verified 11/02/24 14:09 phenytoin (From Dilantin) Allergy PT UNSURE Verified 11/02/24 14:09 OF REACTION prochlorperazine (From Allergy Other Verified 11/02/24 14:09 Compazine) shellfish derived Allergy Other Verified 11/02/24 14:09 technetium-99m AdvReac Severe Other Verified 11/02/24 14:09 soy AdvReac NEEDS Verified 11/02/24 14:09 FOLLOW-UP Family History Mother Heart disease Cervical [...] fever(s) Eyes Eyes: Denies change in vision or diplopia ENT ENT ED: Denies rhinorrhea or sore throat Cardiovascular Cardiovascular: Denies chest pain or palpitations Respiratory/Chest Respiratory/Chest: Denies cough or dyspnea Gastrointestinal Gastrointestinal: Reports nausea; Denies abdominal pain, diarrhea or vomiting Genitourinary Genitourinary ED: Denies dysuria or hematuria Musculoskeletal Musculoskeletal: Denies back pain or neck pain Integumentary Denies abscess or rash Neurologic Neurologic: Reports headache(s) and seizures; Denies paresthesias or weakness Psychiatric Psychiatric: Denies anxiety or suicidal thoughts EXAM Physical Exam Const Vital Signs: 11/04/24 14:05 11/04/24 14:52 11/04/24 15:00 Temperature 98.6 F Temperature Source Oral Pulse Rate 106 H 78 74 Respiratory Rate 17 18 Blood Pressure 120/74 92/74 97/77 Blood Pressure Mean 89 80 83 Pulse Ox 95 98 Oxygen Delivery Method Room Air 11/04/24 16:00 11/04/24 17:00 Temperature Temperature Source Pulse Rate 100 112 H Respiratory Rate 18 20 H Blood Pressure 100/78 120/78 Blood Pressure Mean 85 92 Pulse Ox 99 99 Oxygen Delivery Method Positive well nourished and well developed General Appearance ED: well developed and NAD HEENT Reports moist mucous membranes normocephalic and atraumatic Eyes PERRL and EOMs intact bilaterally Neck full ROM and supple Resp normal respiratory effort and clear to auscultation bilaterally Cardio regular rate, regular rhythm and no murmurs GI non-tender and non-distended Auscultation: normoactive bowel sounds Palpation: soft Back/Spine no CVA tenderness General Back: other FROM Extremity normal to inspection General Extremety ED: Negative for edema, pulses abnormal or tenderness General Extremity: Negative for edema or pulses abnormal Neuro oriented x3, CN's II-XII intact bilaterally, no sensory deficits noted and gait normal Sensorium / Orientation: awake and alert Motor Exam: strength 5/5 throughout Psych mental status grossly normal Skin no rashes or lesions noted and no wounds MDM MDM MDM Narrative Medical decision making narrative: I observed the patient and had her perform a urinalysis. She has 5-10 white blood cells, trace leukocyte on dip, negative nitrate, and 1+ bacteria. She hasno symptoms, so I sent for culture but my suspicion is that the reason for her breakthrough seizure is her sleep deprivation this past night. While observing her in the ER, she told staff that she was feeling an aura, like she was going to haveanother seizure. We had an IV already established, she was given Zofranprior to that, and so we gave her Ativan 0.5 mg and observed her longer. She felt better but was lethargic due to the benzodiazepines. She is little tachycardic but her blood pressures stable and she is neurologically intact. She was observed longer. Tachycardia normalized, she feels much better and backto normal. She is due to take her lamotrigine 250 ER in about an hour or so. Itry to give her a double dose but in order tokeep her from running out of the pills in her bottle, obtain them from the pharmacy, but they do not have the extended release just the immediate release. I discussed with the pharmacist. She recommended giving her 200 mg immediate release now, and then waiting until bedtime to take her own extended release 250 mg. I discussed this with the patient, we sent her urine for culture, but I do not think we need to put her onantibiotics right now. Stable for follow-up she has an appointment after the weekend with her neurologist. History & Record Review Discussion w/independent historian: Patient and Family Lab Data Attestation: I reviewed the patient's lab results. Labs: Laboratory Results - last 24 hr 11/04/24 15:00 Urine Color Yellow Urine Clarity Sl. Cloudy Urine pH 7.0 Ur Specific Bluebell 1.010 Urine Protein 15 H Urine Glucose (UA) Normal Urine Ketones Negative Urine Occult Blood Negative Urine Nitrite Negative Urine Bilirubin Negative Urine Urobilinogen 4 H Ur Leukocyte Esterase 25 H Urine RBC 0 SEEN Urine WBC 5-10 SEEN Ur Squamous Epith Cells 0-5 SEEN Urine Bacteria 1+ Urine Mucus 0 SEEN Discharge Plan Triage Chief Complaint: Seizure ED Provider: Everardo Espinoza Dx/Rx/DC Orders Clinical Impression: Breakthrough seizure, Epilepsy, Sleep deprivation Instructions: ED Seizure, Recurrent (Adult) Prescriptions: No Action zonisamide 100 mg capsule 300 mg PO QPM Qty: 90 4RF zonisamide 100 mg capsule See Rx Instructions .ROUTE .COMPLEX Qty: 150 5RF Rx Instructions: Take 2 capsules orally every morning and 3 capsules every evening. lamotrigine 250 mg tablet extended release 24hr 250 mg PO BID Qty: 60 5RF escitalopram oxalate [Lexapro] 10 mg tablet 10 mg PO QHS Qty: 30 5RF ondansetron 4 mg tablet,disintegrating 4 mg PO Q6H PRN (Reason: nausea and vomiting) Qty: 14 0RF lidocaine HCl [Lidocaine Viscous] 2 % solution 10 ml PO TID PRN (Reason: pain) Qty: 100 0RF Mirena 20 mcg/24 hours (6 yrs) 52 mg Intrauterine Device 20 mcg INTRAUTERINE UD Patient Comments: already placed Valtoco 10 mg/spray (0.1 mL) spray,non-aerosol 10 mg INTRANASAL PRN PRN (Reason: Seizures) Patient Comments: USE DIRECTED NASALLY 1 TO 2 TIMES A WEEK Ultomiris 100 mg/mL solution 3,300 mg .Route .q8 weeks Qty: 33 2RF Rx Instructions: 3300 mg IV infusion over 1 hour every 8 weeks. lubiprostone [Amitiza] 8 mcg capsule 8 mcg PO QDAY Qty: 30 2RF Referrals: Kendall Conroy MD [Non-Staff -Ordering Privileges] - Keep Hellen appointment Activity Restrictions/Additional Instructions: You received a dose of immediate release lamotrigine in the ED, so you can delayyour extended release dose until 9-10 o'clock tonight, or if you go to bed earlier than just take it right before you go to sleep. Try to get a good night's sleep tonight. Continue your medications as prescribed, otherwise. Print Language: Kenyan Disposition Disposition: Home, Self Care What to do if you have Problems For any increased pain, shortness of breath, bleeding, nausea or vomiting, chestpain, or any unexpected problems, contact your Primary Care Provider. Call [facility] ([phone]) or report tothe closest Emergency Room. Call 911 if necessary. 11/04/24 1750 Cosigner Signature (if applicable): CC: ~ Signed [facility]07-05-2025 Discharge summary Author Everardo Espinoza [facility] Note Date/Time November 04, 2024 5:50p m [facility] Medical Records Department [address] [place] [address] Emergency Department Summary 11/04/24 MR#: [id number] Acct: [id number] Name: DOUG FLANAGAN Rep #:[id number] : 1990 34 From: Everardo Espinoza MD PCP: Status:REG ER Location: ED HPI History of Present Illness Chief Complaint: Seizure Informant: patient, parent and EMS Narrative Narrative: 34-year-old female with a history of epilepsy had a seizure just prior to arrival. Was witnessed by mom, patient felt it coming on. She did not fall or injure herself. Seizure lasted a total of less than 5 minutes, mother saw her turning blue in the face and so thought she was not breathing well and gave her intranasal diazepam. Upon EMS arrival, she was postictal, and gradually came around and now she is alert and feels back to normal except for being very nauseated and states she has a mild headache. No focal neurologic symptoms no vision changes. She denies any recent illness. She states she stayed up almostall night last night for 03 November to watch fireworks and did not get to bed until about 3 AM and got up around 8 AM. She does not usually do that. She is been compliant with her antiepileptics, and states that he saw her neurologist recently and had levels drawn and everything looked good. She took her doses this morning. She denies any drug use. She has a history of myasthenia gravis,she has not been having any specific flareup symptoms lately. [facility] Medical History Gastroparesis Dietary counseling Encounter to establish care Chronic abdominal pain Chronic constipation Hx of peripheral vascular disease Normal echocardiogram (~05/18/16) Anemia Migraine headache Injury of head and neck Seizures Difficulty swallowing Difficulty chewing Non-smoker Shortness of breath on exertion Leg cramps History of stress test Chest pain Myasthenia gravis Home Medications ?Medication ?Instructions ?Recorded ?Last Taken ?Type levonorgestrel (Mirena) 20 mcg intrauterine UD 10/14/20 Unknown History control diazepam 10 mg/spray (0.1 mL) 10 mg intranasal PRN PRN Seizures 08/08/22 Unknown History nasal spray (Valtoco) zonisamide 100 mg capsule 300 mg (3 x 100 mg) PO QPM 1 06/13/23 Unknown Rx seizures #90 caps escitalopram oxalate 10 mg tablet 10 mg PO QHS #30 tab s 07/06/24 Unknown Rx (Lexapro) lamotrigine 250 mg tablet,extended 250 mg PO BID seizu res #60 tabs 07/06/24 Unknown Rx release 24 hr zonisamide 100 mg capsule See Rx Instructions .Route 0 07/06/24 Unknown Rx .COMPLEX seizures #150 caps ravulizumab-cwvz 100 mg/mL 3,300 mg (33 mL) .Route .q8 weeks 07/27/24 Unknown Rx intravenous solution (Ultomiris) #33 mL lubiprostone 8 mcg capsule 8 mcg PO QDAY #30 caps 10/01 Unknown Rx (Amitiza) lidocaine HCl 2 % mucosal solution 10 ml PO TID PRN pa in #100 mL 10/13/24 Unknown Rx (Lidocaine Viscous) ondansetron 4 mg disintegrating 4 mg PO Q6H PRN nausea and 10/13/24 Unknown Rx tablet vomiting #14 tabs Allergy/AdvReac Type Severity Reaction Status Date / Time barium sulfate Allergy Severe Other Verified 11/02/24 14:09 levetiracetam (From Keppra) Allergy Other Verified 11/02/24 14:09 Penicillins Allergy Rash Verified 11/02/24 14:09 phenytoin (From Dilantin) Allergy PT UNSURE Verified 11/02/24 14:09 OF REACTION prochlorperazine (From Allergy Other Verified 11/02/24 14:09 Compazine) shellfish derived Allergy Other Verified 11/02/24 14:09 technetium-99m AdvReac Severe Other Verified 11/02/24 14:09 soy AdvReac NEEDS Verified 11/02/24 14:09 FOLLOW-UP Family History Mother Heart disease Cervical [...] fever(s) Eyes Eyes: Denies change in vision or diplopia ENT ENT ED: Denies rhinorrhea or sore throat Cardiovascular Cardiovascular: Denies chest pain or palpitations Respiratory/Chest Respiratory/Chest: Denies cough or dyspnea Gastrointestinal Gastrointestinal: Reports nausea; Denies abdominal pain, diarrhea or vomiting Genitourinary Genitourinary ED: Denies dysuria or hematuria Musculoskeletal Musculoskeletal: Denies back pain or neck pain Integumentary Denies abscess or rash Neurologic Neurologic: Reports headache(s) and seizures; Denies paresthesias or weakness Psychiatric Psychiatric: Denies anxiety or suicidal thoughts EXAM Physical Exam Const Vital Signs: 11/04/24 14:05 11/04/24 14:52 11/04/24 15:00 Temperature 98.6 F Temperature Source Oral Pulse Rate 106 H 78 74 Respiratory Rate 17 18 Blood Pressure 120/74 92/74 97/77 Blood Pressure Mean 89 80 83 Pulse Ox 95 98 Oxygen Delivery Method Room Air 11/04/24 16:00 11/04/24 17:00 Temperature Temperature Source Pulse Rate 100 112 H Respiratory Rate 18 20 H Blood Pressure 100/78 120/78 Blood Pressure Mean 85 92 Pulse Ox 99 99 Oxygen Delivery Method Positive well nourished and well developed General Appearance ED: well developed and NAD HEENT Reports moist mucous membranes normocephalic and atraumatic Eyes PERRL and EOMs intact bilaterally Neck full ROM and supple Resp normal respiratory effort and clear to auscultation bilaterally Cardio regular rate, regular rhythm and no murmurs GI non-tender and non-distended Auscultation: normoactive bowel sounds Palpation: soft Back/Spine no CVA tenderness General Back: other FROM Extremity normal to inspection General Extremety ED: Negative for edema, pulses abnormal or tenderness General Extremity: Negative for edema or pulses abnormal Neuro oriented x3, CN's II-XII intact bilaterally, no sensory deficits noted and gait normal Sensorium / Orientation: awake and alert Motor Exam: strength 5/5 throughout Psych mental status grossly normal Skin no rashes or lesions noted and no wounds MDM MDM MDM Narrative Medical decision making narrative: I observed the patient and had her perform a urinalysis. She has 5-10 white blood cells, trace leukocyte on dip, negative nitrate, and 1+ bacteria. She hasno symptoms, so I sent for culture but my suspicion is that the reason for her breakthrough seizure is her sleep deprivation this past night. While observing her in the ER, she told staff that she was feeling an aura, like she was going to have another seizure. We had an IV already established, she was given Zofranprior to that, and so we gave her Ativan 0.5 mg and observed her longer. She felt better but was lethargic due to the benzodiazepines. She is little tachycardic but her blood pressures stable and she is neurologically intact. She was observed longer. Tachycardia normalized, she feels much better and backto normal. She is due to take her lamotrigine 250 ER in about an hour or so. Itry to give her a double dose but in order to keep her from running out of the pills in her bottle, obtain them from the pharmacy, but they do not have the extended release just the immediate release. I discussed with the pharmacist. She recommended giving her 200 mg immediate release now, and then waiting until bedtime to take her own extended release 250 mg. I discussed this with the patient, we sent her urine for culture, but I do not think we need to put her onantibiotics right now. Stable for follow-up she has an appointment after the weekend with her neurologist. History & Record Review Discussion w/independent historian: Patient and Family Lab Data Attestation: I reviewed the patient's lab results. Labs: Laboratory Results - last 24 hr 11/04/24 15:00 Urine Color Yellow Urine Clarity Sl. Cloudy Urine pH 7.0 Ur Specific Bluebell 1.010 Urine Protein 15 H Urine Glucose (UA) Normal Urine Ketones Negative Urine Occult Blood Negative Urine Nitrite Negative Urine Bilirubin Negative Urine Urobilinogen 4 H Ur Leukocyte Esterase 25 H Urine RBC 0 SEEN Urine WBC 5-10 SEEN Ur Squamous Epith Cells 0-5 SEEN Urine Bacteria 1+ Urine Mucus 0 SEEN Discharge Plan Triage Chief Complaint: Seizure ED Provider: Everardo Espinoza Dx/Rx/DC Orders Clinical Impression: Breakthrough seizure, Epilepsy, Sleep deprivation Instructions: ED Seizure, Recurrent (Adult) Prescriptions: No Action zonisamide 100 mg capsule 300 mg PO QPM Qty: 90 4RF zonisamide 100 mg capsule See Rx Instructions .ROUTE .COMPLEX Qty: 150 5RF Rx Instructions: Take 2 capsules orally every morning and 3 capsules every evening. lamotrigine 250 mg tablet extended release 24hr 250 mg PO BID Qty: 60 5RF escitalopram oxalate [Lexapro] 10 mg tablet 10 mg PO QHS Qty: 30 5RF ondansetron 4 mg tablet,disintegrating 4 mg PO Q6H PRN (Reason: nausea and vomiting) Qty: 14 0RF lidocaine HCl [Lidocaine Viscous] 2 % solution 10 ml PO TID PRN (Reason: pain) Qty: 100 0RF Mirena 20 mcg/24 hours (6 yrs) 52 mg Intrauterine Device 20 mcg INTRAUTERINE UD Patient Comments: already placed Valtoco 10 mg/spray (0.1 mL) spray,non-aerosol 10 mg INTRANASAL PRN PRN (Reason: Seizures) Patient Comments: USE DIRECTED NASALLY 1 TO 2 TIMES A WEEK Ultomiris 100 mg/mL solution 3,300 mg .Route .q8 weeks Qty: 33 2RF Rx Instructions: 3300 mg IV infusion over 1 hour every 8 weeks. lubiprostone [Amitiza] 8 mcg capsule 8 mcg PO QDAY Qty: 30 2RF Referrals: Kendall Conroy MD [Non-Staff -Ordering Privileges] - Keep Hellen appointment Activity Restrictions/Additional Instructions: You received a dose of immediate release lamotrigine in the ED, so you can delayyour extended release dose until 9-10 o'clock tonight, or if you go to bed earlier than just take it right before you go to sleep. Try to get a good night's sleep tonight. Continue your medications as prescribed, otherwise. Print Language: Kenyan Disposition Disposition: Home, Self Care What to do if you have Problems For any increased pain, shortness of breath, bleeding, nausea or vomiting, chestpain, or any unexpected problems, contact your Primary Care Provider. Call [facility] ([phone]) or report to the closest Emergency Room. Call 911 if necessary. 11/04/24 1750 <Electronically signed by Everardo Espinoza MD> Cosigner Signature (if applicable): CC: ~ Signed [facility] Work Phone: 1(205) 518-511507-05-2025 Hospital Discharge instructionsAdditional Instructions You received a dose of immediate release lamotrigine in the ED, so you can delay your extended release dose until 9-10 o'clock tonight, or if you go to bed earlier than just take it right before you go to sleep. Try to get a good night's sleep tonight. Continue your medications as prescribed, otherwise.[facility] Work Phone: 1(722) 774-975906-14-2025 Radiology Diagnostic study note [facility] Imaging Services [address] [place], [place] [id number] Chest PA and Lateral MR#: [id number] Acct: [id number] Name: DOUG FLANAGAN Rep #: [id number] : 1990 F 34 From: Karthikeyan Montoya MD PCP: Dr. Leander Patel MD Status: R EG CLI Study:Chest PA and Lateral Date of Exam: 10/13/24 Exam# [id number] Ordering Dr: Louise Torrez PROCEDURE: CHEST PA [...] No evidence for acute abnormality. Reading [facility] CC: RV SERVICERLd Torrez; Dr. Leander Patel MD ~ Resource Room Teacher: Signed [facility]06-13-2025 Evaluation note* Diagnosis Onset Date Resolution Status Admit Date Hospital discharge follow-up acute October 13, 2024 2:42pm Nausea acute October 13 2:42pm Pharyngeal damage during airway intubation acute October 13 2:42pm Shortness of breath acute October 13, 2024 2:42pm Dietary counseling acute November 022024 2:06pm Pharyngeal damage during airway intubation acute November 02, 2024 2:06pm Epilepsy chronic November 02, 2024 2:06pm Gastroparesis chronic November 02, 2 025 2:06pm Myasthenia gravis acute October 8:15am Anxiety chronic November 07, 2024 8:15am Epilepsy chronic November 07, 2024 8:15am Myasthenia gravis acute December 11, 2024 9:55am Anxiety chronic December 11, 2 025 9:55am Epilepsy chronic December 11, 2 025 9:55am Upper respiratory infection acute January 11, 2025 1:35pm Anxiety chronic January 1:35pm Epilepsy chronic January 1:35pm Gastroparesis chronic January 012024 1:35pm [facility] Work Phone: 1([phone]) 404-671706-13-2025 Evaluation note* Diagnosis Onset Date Resolution Status Admit Date Hospital discharge follow-up acute October 13, 2024 2:42pm Nausea acute October 13 2:42pm Pharyngeal damage during airway intubation acute October 13 2:42pm Shortness of breath acute October 13, 2024 2:42pm Dietary counseling acute November 022024 2:06pm Pharyngeal damage during airway intubation acute November 02, 2024 2:06pm Epilepsy chronic November 02, 2024 2:06pm Gastroparesis chronic November 02, 025 2:06pm Myasthenia gravis acute October 8:15am Anxiety chronic November 07, 2024 8:15am Epilepsy chronic November 07, 2024 8:15am Myasthenia gravis acute December 11, 2024 9:55am Anxiety chronic December 11, 2 025 9:55am Epilepsy chronic December 11, 2 025 9:55am Upper respiratory infection acute January 11, 2025 1:35pm Anxiety chronic January 1:35pm Epilepsy chronic January 1:35pm Gastroparesis chronic January 012024 1:35pm Myasthenia gravis acute February 05, 2025 10:31am Anxiety chronic February 05, 2 025 10:31am Epilepsy chronic February 05, 2 025 10:31am [facility] Work Phone: 1(892) 936-366006-09-2025 NoteHNO ID: [id number] Author: MEL SPARROW RN Service: Care Management [...] Flanagan DATE: October 09, 2024 TIME: 3:31 [facility]06-09-2025 NoteHNO ID: [id number] Author: MEL SPARROW RN Service: Care Management Author Type: Registered Nurse Type: Care Mgt Initial Assessment Filed: 10/09/2024 15:18 Note Text: CARE MANAGEMENT: ASSESSMENT AND DISCHARGE PLAN SERVICE DATE: October 09, 2024 SERVICE TIME: 3:16 PM PCP: Dylan Velarde CNP Primary Contact: Extended Emergency Contact Information Primary Emergency Contact: Karen Flanagan [place] Mobile Relation: Father Secondary Emergency Contact: MashaGenny Mobile Relation: Mother Admission Status: Inpatient Insurance Provider: DELFINO SAHA MEDICARE Discharge Planning requested by: Per Department Practice Potential Transition Plans Home Advance Directives Current Advance Directive: None Dry Clipper Tender Attempted to Assist with AD Completion: Yes [...] Be able to go home, General wellness [place] Explained: [place] Given: No Reason Not Given: [...] with 13 year old son. Mostly independent [employer]. Parents live nearby and provide support, assistance, and transportation as needed. +PCP. +Rx. +DME utilizes shower chair. Pending therapy evals for patient goal of discharging to parents home with her son for a week or two after discharge. Mother to transport. CM to follow for transitional care planning. SIGNATURE: Mel Sparrow RN PATIENT NAME: Doug Flanagan DATE: October 09, 2024 TIME: 3:16 [facility]06-09-2025 NoteHNO ID: [id number] Author: MEL SPARROW RN Service: Care Management Author Type: Registered Nurse Type: Care Mgt Progress Note Filed: 10/09/2024 15:31 Note Text: CARE MANAGEMENT PROGRESS NOTE SERVICE DATE: 10/09/2024 SERVICE TIME: 1:30 PM LOS: 3 days IMM Follow Up Copy Given: Yes Copy given to:: Patient Method: In Person SIGNATURE: Mel Sparrow RN PATIENT NAME: Doug Flanagan DATE: October 09, 2024 TIME: 3:30 [facility]06-08-2025 NoteHNO ID: [id number] Author: KAREN DOUGHERTY APRN.CNP Service: Neurology ICU [...] MG, migraines and Epilepsy. - Transfer from [facility] w/ breakthrough seizure x2 requiring intubation. [...] - MRI wwo contrast when able Epilepsy ([facility]) 10/06/2024 - Present Yes Current Assessment AND Plan Hx of Epilepsy since age 11. Had previously followed with Epilepsy team at [facility], however insurance changed. Home AEDs: Lamictal 250mg BID, Zonegran 200mg qAM/300mg qPM Acute respiratory failure with hypoxia ([facility]) 10/06/2024 - Present Yes Current Assessment AND Plan In setting of generalized seizure - Intubated at outside ED for airway protection - 10/07 extubated Plan: - Fu CXR - Fu ABG - airway watch On mechanically assisted ventilation ([facility]) 10/06/2024 - Present Yes Current Assessment AND Plan Intubated for airway protection in setting of seizure and acute hypoxic respiratory failure at outside ED. Plan: - Extubated on 10/07 - Aspiration precaution - Airway watch - Cepacol lozenges for sore throat Myasthenia gravis (HCC) 10/06/2024 - Present Yes Current Assessment AND Plan -Without exacerbation -AChR + -Outpatient Ul (more content not included)...[facility] 10-06-2024 NoteHNO ID: [id number] Author: FRITZ SUNG Medic Service: ? Author Type: Splitter Machine and Lockstitch Waistline Joiner Type: Progress Notes Filed: 10/07/2024 03:30 Note Text: CRITICAL CARE TRANSPORT MEDICAL CONTROL CONSULT NOTE Patient Name: Doug Flanagan Service Date: October 06, 2024 Referring Facility: [facility] Accepting Facility: REASON FOR TRANSPORT: seizures REASON FOR CONSULT: sedation CCT MEDICAL CONTROL CONSULT SUMMARY: History, physical exam findings, and available background patient information from [facility] Transport Nurse were reviewed at the time of consult. Pertinent additional information was reviewed as follows: Epic Records In brief, Doug Flanagan is a 34 year old female with a history, known at time of consult, significant for depression, seizures, myasthenia gravis, TBI who presented to [facility] for evaluation of seizure activity. Per the ED patient self administered valium prior to seizure activity. Upon arrival to the ED patient was post ictal and intubated for airway protection. Patient to be transferred to [facility] for further care and neurological evaluation. PLAN: Multiple factors considered including: patient history/condition/trajectory/stability, referring and receiving destinations, duration of transport time, medications and therapies available during transport, patient safety, as well as crew capabilities. Orders given for: Propofol titration Plan of care and orders confirmed and read back via telephone with CCT Transport support team member, Júnior Sung, Splitter Machine SIGNATURE: Rivka Richards APRN.SUPERVISOR TYPESETTING Acute Care Nurse Practitioner Critical [facility] History of Present illness Narrative* Fritz Sung Medic - 10/06/2024 9:49 PM EDT Images from the original note were not included. CRITICAL CARE TRANSPORT MEDICAL CONTROL CONSULT NOTE Patient Name: Doug Flanagan Service Date: October 06, 2024 Referring Facility: [facility] Accepting Facility: REASON FOR TRANSPORT: seizures REASON FOR CONSULT: sedation CCT MEDICAL CONTROL CONSULT SUMMARY: History, physical exam findings, and available background patient information from [facility] Transport Nurse were reviewed at the time of consult. Pertinent additional information was reviewed as follows: Epic Records In brief, Doug Flanagan is a 34 year old female with a history, known at time of consult, significant for depression, seizures, myasthenia gravis, TBI who presented to [facility] for evaluation of seizure activity. Per the ED patient self administered valium prior to seizure activity. Upon arrival to the ED patient was post ictal and intubated for airway protection. Patient to be transferred to [facility] for further care and neurological evaluation. PLAN: Multiple factors considered including: patient history/condition/trajectory/stability, referring and receiving destinations, duration of transport time, medications and therapies available during bragg sport, patient safety, as well as crew capabilities. Orders given for: Propofol titration Plan of care and orders confirmed and read back via telephone with CCT Transport support team member, Júnior Sung, Splitter Machine SIGNATURE: Rivka Richards APRN.[facility] Acute Care Nurse Practitioner Critical Care Transport [facility] Radiology Diagnostic study note [facility] Imaging Services [address] [place] [id number] Chest 1 View (Portable) MR#: [id number] Acct: [id number] Name: DOUG FLANAGAN Rep #: [id number] : 1990 F 34 From: Wendy Feldman MD PCP: Dr. Leander Patel MD Status: R ER Study:Chest 1 View (Portable) Date of Exam: 10/06/24 Exam# [id number] Ordering Dr: Zulma Jones DO EXAM: XR Chest, 1 View CLINICAL INDICATION: INTUBATION TECHNIQUE: Frontal view of the chest. COMPARISON: No relevant prior studies available. FINDINGS: LUNGS AND PLEURAL SPACES: See below. HEART: Unremarkable. No cardiomegaly. MEDIASTINUM: Unremarkable. Normal mediastinal contour. BONES/JOINTS: Unremarkable. No acute fracture. TUBES, LINES AND DEVICES: Right-sided Mediport with the distal tip in the SVC. No pneumothorax. Theendotracheal tube (ETT) is in satisfactory position. Enteric tube tip in the stomach. RAD/Chest 1 View (Portable) IMPRESSION: No acute cardiopulmonary process. Reading Location: [facility] CC: Dr. Leander Patel MD; Dr. Angella Jones DO ~ Resource Room Teacher: Signed [facility]06-06-2025 Radiology Diagnostic study note [facility] Imaging Services [address] [place], [place] [id number] Brain/Head without Contrast MR#: [id number] Acct: [id number] Name: DOUG FLANAGAN Rep #: [id number] : 1990 F 34 From: Lupillo Ambrose MD PCP: Dr. Leander Patel MD Status: R EG ER Study:Brain/Head without Contrast Date of Exa m: 10/06/24 Exam# [id number] Ordering Dr: Jaclyn Taylor PROCEDURE: BRAIN/HEAD WITHOUT [...] other acute process is seen Reading Location: [id number] CC: Dr. Leander Patel MD; BRANDON Orr ~ Resource Room Teacher: Signed [facility]06-04-2025 Nuclear medicine Diagnostic study note [facility] Imaging Services [address] [place] [address] Gastric Emptying Study MR#: [id number] Acct: [id number] Name: DOUG FLANAGAN Rep #: [id number] : 1990 F 34 From: Henrietta Kendall MD PCP: Dr. Leander Patel MD Status: R EG CLI Study:Gastric Emptying Study Date of Exam: 10/03/24 Exam# [id number] Ordering Dr: Katie Mayo PROCEDURE: GASTRIC EMPTYING [...] geometric mean was used to calculate a xmnj-xytvatvq-caonl. Medications taken in the past 24 hours [...] NORMAL RANGE FOR GASTRIC EMPTYING. Reading Location: [place] [address] CC: Dr. Leander Patel MD; BRANDON Dunaway ~ Resource Room Teacher: Signed [facility]05-15-2025 Evaluation note* Diagnosis Onset Date Resolution Status Admit Date Bloating acute September 14, 2024 7:40am Chronic constipation chronic September 14, 2024 7:40am Hospital discharge follow-up acute October 13, 2024 2:42pm Nausea acute October 13 2:42pm Pharyngeal damage during air way intubation acute October 13, 2024 2:42pm Shortness of breath acute October 13, 2024 2:42pm Dietary counseling acute November 022024 2:06pm Pharyngeal damage during air way intubation acute November 02, 2024 2 :06pm Epilepsy chronic November 02, 2024 2:06pm Gastroparesis chronic November 02, 2 025 2:06pm Anxiety acute November 07, 2024 8:15am Myasthenia gravis acute October 8:15am Epilepsy chronic November 07, 2024 8:15am Anxiety acute December 11, 2 025 9:55am Myasthenia gravis acute December 11, 2024 9:55am Epilepsy chronic December 11, 2 025 9:55am [facility] Work Phone: 1(364) 634-775105-15-2025 Progress [facility] Gastroenterology [address] [place] [address] OFFICE VISIT Date of Service: 09/14/24 MR#: [id number] Acct: [id number] Name: DOUG FLANAGAN Rep #: [id number] : 1990 Provider: BRANDON Dunaway Age/Sex: 34/F Location: [facility] Status: Signed Intake Vital Signs 07/26/24 14:04 [...] prune ex to relieve constipation as needed. [facility] Medical History Encounter to establish care Chronic [...] the office today for f/u. BGI established 4.16. with constipation and abd pain. Worsening constipation [...] 3 days which helps some. She will nothave a bm unless she takes this. Shehas [...] and comfortable Nutritional Appearance: average body habitus [facility] Head: normal to inspection Eyes General: appearance [...] sitz markers still in the colon by day5. Celiac and food allergens without abnormalities. She [...] as evidenced by improvement in her symptoms withsofteasy to digest foods. She will try 1 [...] Bloating R14.0 Chronic constipation K59.09 09/14/24 0833 tona TAYLOR> Date _ Katie TAYLOR Cosigner Signature: Date (if applicable) CC: ~ [facility]04-16-2025 Evaluation note* Diagnosis Onset Date Resolution Status Admit Date Bloating acute August 16 7:44am Chronic constipation chronic Apri l 2024 7:44am Bloating acute September 14, 2024 7:40am Chronic constipation chronic September 14, 2024 7:40am Hospital discharge follow-up acute October 13, 2024 2:42pm Nausea acute October 13 2:42pm Pharyngeal damage during air way intubation acute October 13, 2024 2:42pm Shortness of breath acute October 13, 2024 2:42pm Dietary counseling acute November 022024 2:06pm Pharyngeal damage during air way intubation acute November 02, 2024 2 :06pm Epilepsy chronic November 02, 2024 2:06pm Gastroparesis chronic November 02, 2 025 2:06pm Anxiety acute November 07, 2024 8:15am Myasthenia gravis acute October 8:15am Epilepsy chronic November 07, 2024 8:15am Epilepsy chronic December 11, 2 025 9:55am [facility] Work Phone: 1([phone]) 494-801003-26-2025 Evaluation note* Diagnosis Onset Date Resolution Status Admit Date Encounter to establish care acute July 26, 2024 1:27pm Myasthenia gravis acute July 022024 1:27pm Chronic abdominal pain chronic [facility] 2024 1:27pm Chronic constipation chronic [facility] [...] of breath acute October 13, 2024 2:42pm Dietary counseling acute November 022024 2:06pm Pharyngeal damage during air way intubation acute November 02, 2024 2 :06pm Epilepsy chronic November 02, 2024 2:06pm Gastroparesis chronic November 02, 025 2:06pm [facility] Work Phone: 1([phone]) 866-514303-06-2025 Evaluation note* Diagnosis Onset Date Resolution Status Admit Date Anxiety acute July 06 8:20am Hyperammonemia acute July 06, 2024 8:20am Myasthenia gravis acute July 062024 8:20am Epilepsy chronic July 06 8:20am Encounter to establish care acute July 26, 2024 1:27pm Myasthenia gravis acute July 022024 1:27pm Chronic abdominal pain chronic [facility] 2024 1:27pm Chronic constipation chronic [facility] 2024 1:27pm Epilepsy chronic July 26 1:27pm [facility] Work Phone: [phone]) [phone] Evaluation note* Diagnosis Onset Date Resolution Status Admit Date Anxiety acute July 06 8:20am Hyperammonemia acute July 06, 2024 8:20am Myasthenia gravis acute July 062024 8:20am Epilepsy chronic July 06 8:20am Encounter to establish care acute July 26, 2024 1:27pm Myasthenia gravis acute July 022024 1:27pm Chronic abdominal pain chronic [facility] 2024 1:27pm Chronic constipation chronic [facility] 2024 1:27pm Epilepsy chronic July 26 1:27pm Bloating acute August 16 7:44am Chronic constipation chronic [facility] 2024 7:44am [facility] Work Phone: 1([phone]) 250-640103-06-2025 Evaluation note* Diagnosis Onset Date Resolution Status Admit Date Anxiety acute July 06 8:20am Hyperammonemia acute July 06, 2024 8:20am Myasthenia gravis acute July 062024 8:20am Epilepsy chronic July 06 8:20am Encounter to establish care acute July 26, 2024 1:27pm Myasthenia gravis acute July 022024 1:27pm Chronic abdominal pain chronic [facility] 2024 1:27pm Chronic constipation chronic [facility] 2024 1:27pm Epilepsy chronic July 26 1:27pm Bloating acute August 16 7:44am Chronic constipation chronic [facility] 2024 7:44am Bloating acute September 14, 2024 7:40am Chronic constipation chronic September 14, 2024 7:40am [facility] Work Phone: 1(371) 481-5651254444-54-2611 Evaluation note* Diagnosis Onset Date Resolution Status Admit Date Anxiety acute July 06 8:20am Hyperammonemia acute July 06, 2024 8:20am Myasthenia gravis acute July 062024 8:20am Epilepsy chronic July 06 8:20am Encounter to establish care acute July 26, 2024 1:27pm Myasthenia gravis acute July 022024 1:27pm Chronic abdominal pain chronic [facility] 2024 1:27pm Chronic constipation chronic [facility] 2024 1:27pm Epilepsy chronic July 26 1:27pm Bloating acute August 16 7:44am Chronic constipation chronic [facility] 2024 7:44am Bloating acute September 14, 2024 7:40am Chronic constipation chronic September 14, 2024 7:40am Nausea acute October 13 2:42pm Pharyngeal damage during air way intubation acute October 13, 2024 2:42pm Shortness of breath acute October 13, 2024 2:42pm [facility] Work Phone: 1([phone]) 990-4210334819-01-4612 Evaluation note* Diagnosis Onset Date Resolution Status Admit Date Anxiety acute July 06 8:20am Hyperammonemia acute July 06, 2024 8:20am Myasthenia gravis acute July 062024 8:20am Epilepsy chronic July 06 8:20am Encounter to establish care acute July 26, 2024 1:27pm Myasthenia gravis acute July 022024 1:27pm Chronic abdominal pain chronic [facility] 2024 1:27pm Chronic constipation chronic [facility] [...] of breath acute October 13, 2024 2:42pm [facility] Work Phone: 1(527) 739-706012-11-2024 Evaluation note* Diagnosis Onset Date Resolution Status [...] 2024 1:27pm Epilepsy chronic July 26 1:27pm [facility] Work Phone: 1([phone]) 979-516610-21-2024 Telephone encounter Note* Telephone Encounter - Lien Fuller - 02/21/2024 10:00 AM EDT Medication Refill Request ?Last Office Visit: 11/01/2023-Mindel ?Next Office Visit: 03/27/2024-MIndel REFILLS REQUESTED: Requested Prescriptions Pending Prescriptions Disp Refills Valtoco 10 MG Dose 10 MG/0.1ML Liquid [Pharmacy Med Name: Valtoco 10 MG Dose 10 MG/0.1ML Nasal Liquid] 2 Each 0 Sig: USE DIRECTED NASALLY [facility] Miscellaneous Notes* Telephone Encounter - Lien Fuller - 02/21/2024 10:00 AM EDT Medication Refill Request ?Last Office Visit: 11/01/2023-Mindel ?Next Office Visit: 03/27/2024-MIndel REFILLS REQUESTED: Requested Prescriptions Pending Prescriptions Disp Refills Valtoco 10 MG Dose 10 MG/0.1ML Liquid [Pharmacy Med Name: Valtoco 10 MG Dose 10 MG/0.1ML Nasal Liquid] 2 Each 0 Sig: USE DIRECTED NASALLY NEEDED documented [facility]24 NoteHNO ID: [id number] Author: MAYA PUENTE APRN.SUPERVISOR TYPESETTING Service: ? Author Type: Nurse Practitioner Type: [...] 9 years of age Fell off the Curves; lost consciousness 3-5 minutes PAST SURGICAL HISTORY Procedure Laterality Date APPENDECTOMY COLONOSCOPY 04/08/2022 No repeat due to age CONIZATION OF CERVIX; COLD KNIFE/LASER 10/17/2021 Paragard removal, Mirena IUD insertion HIP SURGERY HX Right INSJ TUNNELED CTR VAD W/SUBQ PORT AGE 5 YR/> 10/16/2020 LEEP PROCEDURE (INSURANCE ADVISER DEPT)_*FL THYMECTOMY, PARTIAL/TOTAL total ALLERGIES Ciprofloxacin, Compazine [...] ear normal. Nose: Nose normal. Mouth/Throat: Lips: [place]. Mouth: Mucous membranes are moist. Pharynx: Uvula [...] superficial cervical adenopa (more content not included)... [facility]06-10-2024 History of Present illness Narrative* Maya Puente APRN.SUPERVISOR TYPESETTING - 10/11/2023 8:59 AM EDT Subjective HPI [...] 9 years of age Fell off the Curves; lost consciousness 3-5 minutes PAST SURGICAL HISTORY Procedure Laterality Date APPENDECTOMY COLONOSCOPY 04/08/2022 No repeat due to age CONIZATION OF CERVIX; COLD KNIFE/LASER 10/17/2021 Paragard removal, Mirena IUD insertion HIP SURGERY HX Right INSJ TUNNELED CTR VAD W/SUBQ PORT AGE 5 YR/> 10/16/2020 LEEP PROCEDURE (INSURANCE ADVISER DEPT)_*FL THYMECTOMY, PARTIAL/TOTAL total ALLERGIES Ciprofloxacin, Compazine [...] ear normal. Nose: Nose normal. Mouth/Throat: Lips: [place]. Mouth: Mucous membranes are moist. Pharynx: Uvula [...] pharyngitis. Maya Puente APRN.ROLF documented [facility]04-[facility] History of Present illness Narrative* EDITH Fields - 08/12/2023 12:00 PM EDT Images from the original note were not included. [facility] Comprehensive Epilepsy Clinic Doug Flanagan was seen in the Comprehensive Epilepsy Center at [facility] on 08/12/2023. She is here today [...] toward this important goal. Encouraged use of [employer] to send messages to provider as needed for questions and concerns or can call our clinic @ [phone]. She will return on 11/01/23 at 1:00p at [facility] or sooner if clinically indicated. Signed, Talya Rodriguez APRN-ROLF [facility] Department of Neurology - Epilepsy Division [address] [place] [address] - 7th floor [place] [address] Pager: [phone] Time to complete visit: I spent approximately 68 minutes reviewing the chart prior to the appointment, in face to face counseling with the patient, and with documentation after the visit. Note to patient: The Century Cures Act makes medical notes like these available to patients inthe interest of transparency. However, be advised this is a medical document. It is intended as mdmn-lt-eyhm communication. It is written in medical language [...] your epilepsy that we offer at the [facility]? No If you have tried 2 or 3 anti-seizure medications and your seizures are still not controlled, are you interested in learning about surgical options for your epilepsy that we can offer at the [facility]? No documented in this [facility] Instructions* Patient Instructions* EDITH Fields - [...] persist or become intolerable, please call the [facility] Neurology Clinic at [phone]. If you develop a rash while taking [...] after regular office hours, a neurologist is hotel casino floorperson for urgent issues. Call the neurology office number ([phone]) to reach the neurologist hotel casino floorperson if you are continuing to experience many more seizures than usual despite use of your rescue medications. Please try to remember that the neurologist hotel casino floorperson may not have access to your complete medical record and may not be as familiar with your history. If you have access through [employer], you can contact us through that system as well. If you have documents that need completed or sent to our clinic, please have them faxedto [phone]. It is always best to call during [...] the refill is ready for you to brass pickler. Seizure First Aid Training Can Be Found Here (it's free!): [email or web address] documented in this [facility]04-11-2024 History of Present illness Narrative* EDITH Brown - 08/12/2023 9:20 AM EDT I saw your patient Doug Flanagan today in follow up for MG in the neurology clinic at the [facility] at the [facility]. CURRENT HISTORY: Since her last visit, [...] presents with myasthenia gravis which started in 2018. She started to fall, tripping over [...] on prednisone. THe seizures worsened and she [place] weaker and had more shaking. She tried [...] She has also been seen at the [facility] for seizures. She was initially seen at [facility] Previous diagnostic workup for myasthenia gravis: Test name Date Result AChR antibodies blocking 2019 41 binding 2018 78.6 modulating 2020 52 Striated muscle MUSK antibodies LRP4 antibodies CMS gene testing Chest CT ([place]) 2018 normal Repetitive nerve stimulation Single fiber [...] web exchange or pageable through the switchboard ([phone]) documented in this [facility]04-11-2024 Instructions* Patient Instructions* EDITH Brown - 08/12/2023 9:20 AM EDT Continue your Ultomiris infusions Exercise is Medicine program Aquatic therapy/ exercise programs. This would be a great starting point for your exercise. documented [facility] Telephone encounter Note* Telephone Encounter - Rupal Phillips MA - 05/21/2023 10:54 AM EST Images from the original note were not included. *Documentation only- I did not speak with the patient. Received fax from [employer] stating they provided patient with a temporary supply ofLamotrigine ER 250 mg on 05/19/2023. This drug is not covered on formulary. [facility]01-19-2024 Miscellaneous Notes* Telephone Encounter - Rupal Phillips MA - 05/21/2023 10:54 AM EST Images from the original note were not included. *Documentation only- I did not speak with the patient. Received fax from [employer] stating they provided patient with a temporary supply ofLamotrigine ER 250 mg on 05/19/2023. This drug is not covered on formulary. documented in this encounterOS[facility] History of Present illness Narrative* Edgar Ayers MD - 02/12/2023 9:30 AM EDT For this encounter, I was in the clinic and immediately available during the infusion visit if needed. I did not personally examine the patient. Edgar Ayers MD Supervisor [employer], Department of Neurology, Epilepsy Section [facility] documented in this encounterOSU [facility]08[facility] History of Present illness Narrative* Renee Donald, EDITH - 12/03/2022 2:40 PM EDT I saw your patient Doug Flanagan today in follow up for MG in the neurology clinic at the [facility] at the [facility]. HISTORY OF PRESENT ILLNESS: As you [...] on prednisone. THe seizures worsened and she [place] weaker and had more shaking. She tried [...] She has also been seen at the [facility] for seizures. She was initially seen at [facility] Previous diagnostic workup for myasthenia gravis: Test name Date Result AChR antibodies blocking 2019 41 binding 2019 78.6 modulating 2019 52 Striated muscle MUSK antibodies LRP4 antibodies CMS gene testing Chest CT ([place]) 2018 normal Repetitive nerve stimulation Single fiber [...] web exchange or pageable through the switchboard ([phone]) documented in this [facility]07-14-2023 History of Present illness Narrative* Angie Patterson [...] tonic clonic seizure. She was then [facility]. There was no obvious [...] drugs. The patient currently lives independently in [place], [place]. Past Surgical History has a past [...] and clarify the cause. Edgar Ayers MD Supervisor [employer], Department of Neurology, Epilepsy Section [facility] documented in this encounterOSU [facility]07-[facility]-2023 NoteThe M. Tuberculosis antigen levels cannot be correlated to stage or degree of infection, response to therapy or likelihood for progression to active disease. Results from QuantiFERON TB Gold Plus must be used in conjunction with individual epidemiological history, current medical status, and results of other diagnostic evaluation.[facility]07-03-2023 NoteThe M. Tuberculosis antigen levels cannot be correlated to stage or degree of infection, response to therapy or likelihood for progression to active disease. Results from QuantiFERON TB Gold Plus must be used in conjunction with individual epidemiological history, current medical status, and results of other diagnostic evaluation.[facility]07-03-2023 History of Present illness Narrative* Stephanie Rebolledo RN - 11/02/2022 2:14 PM EDT Final Discharge Planning and Transportation Final Discharge Planning Discharge Disposition: Home Services at Discharge: Occupational Therapy, Physical Therapy Community Agency Name(s) For Handoff: Plan to discharg to home with outpatient PT/OT and support from family. Plan Plan Comments: Follow up with neurology post discharge. Mimeographer Called: No Mode of Transfer: private vehicle Accompanied By: family member Stephanie ANGLIN RN Clinical Assistant Basketball Coach [phone] * Yudi Brown - 11/02/2022 12:12 PM [...] LOB/SOB. Mobility Assessment/Intervention: Supine to Sit Mobility Grainger Level: Supine->Sit: independent Bed Features/Set-up: Supine->Sit: Head of bed elevated, Use of bed rail Transfer Assessment/Intervention: Sit to Stand Transfer Grainger Level: Sit->Stand: stand-by assist Assistive Device: Sit->Stand: gait belt (Non skid socks) Skilled Rationale: Verbal cues, Technique of activity Skilled Intervention/Details: Sit->Stand: Pt completed x 2 sit to stands from EOB with SBA to ensure balance maintenance. Stand to Sit Transfer Grainger Level: Stand->Sit: stand-by assist Assistive Device: Stand->Sit: gait belt (Non skid socks) Skilled Rationale: Verbal cues, Cues for increased safety Skilled Intervention/Details: Stand->Sit: Pt completed x 2 stand to sits EOB with SBA to ensure controlled descent. Functional Mobility: Functional Mobility Grainger Level: Functional Mobility/Gait: stand-by assist Assistive Device: Functional Mobility/Gait: gait belt (Non skid socks) Functional Mobility Distance: Distance needed for common household mobility Functional Mobility Deficits: Balance, Generalized weakness Functional Mobility Skilled Rationale: Cues for increased safety Skilled Intervention/Details - Functional Mobility/Gait: Pt ambulated with no LOB/SOB with SBA to ensure balance maintenance. Outcome Score(s): CURRENT [facility] Daily Activity Inpatient Short Form Putting on/Taking Off Lower Body Clothin - A Little Assistance Bathin - A Little Assistance Toiletin - A Little Assistance Putting on/Taking Off Upper Body Clothin - No Assistance Groomin - No Assistance Eatin - No Assistance CURRENT [facility] Activity Raw Score: 21 CURRENT [facility] Activity Functional Limitation/Modifier: 32.79% Currently Impaired [...] Acute Physical Therapy Treatment Prior to Admission [facility] score(s): PRIOR LEVEL AM-PAC Mobility Raw [...] standing. Mobility Assessment/Intervention: Supine to Sit Mobility Grainger Level: Supine->Sit: independent Bed Features/Set-up: Supine->Sit: Head of bed elevated Skilled Rationale: Verbal cues Transfer Assessment/Intervention: Sit to Stand Transfer Grainger Level: Sit->Stand: supervision Assistive Device: Sit->Stand: gait belt Skilled Rationale: Positioning, Verbal cues Skilled Intervention/Details: Sit->Stand: x4 stands. Cues to use UE's for push-off. Gait/Functional Mobility Assessment/Intervention: Gait Assessment Grainger Level: Gait: supervision Assistive Device: Gait: gait belt Ambulation Distance (Feet): 250 Gait Deviations Identified: decreased gait speed Gait Skilled Rationale: verbal Skilled Intervention/Details - Gait: No LOB or LE buckling noted. No cueing needed to improve gait quality. Stairs Assessment/Intervention: Stairs Assessment Grainger Level: Stair Negotiation: stand-by assist Assistive Device: [...] down due to anxiety. Outcome Score(s): CURRENT [facility] Basic Mobility Inpatient Short Form Turning [...] a railin - A Little Assistance CURRENT [facility] Mobility Raw Score: 20 CURRENT [facility] Mobility Functional Limitation/Modifier: 35.83% Currently Impaired [...] flat bed & no rail with modified charlotte inorder to improve functional mobility and safety. [...] in reach. Time In: 951 Time Out: 1022 Total Visit Time: 31 minutes Total Treatment Time (skilled, billable minutes): 31 minutes Upon discontinuation of Acute Care Physical Therapy Services or patient discharge from the hospitalthis note represents the current Physical Therapy Discharge Summary. * Hill Limon MD - 11/01/2022 2:31 PM EDT Internal Medicine Daily Progress Note Patient: Doug Flanagan, 1990, [id number] Physician: Hill Limon MD, [facility] Med 7 service Subjective/Interval History: No acute [...] at this time. Looking into placement at [facility]. - Consulted neurology - NIF/ VC once - f/up in [facility] Neurom[facility] Chronic conditions Anxiety - Continue home Lexapro 10 mg daily Lab/Electrolyte Abnormalities Hypokalemia- 3.3 (10/30)- repleted with 40mEq K-Dur Vitamin D level ordered Checklist: DVT Prophylaxis: on apixaban Dispo: pending evaluation and treatment. OT recommending Code Status: Full Code Diet: DIET REGULAR Discussed with team and attending, Dr. Adoflo Flores MD, on rounds. Signed, Hill Limon MD Anesthesiology, PGY-1 Pager ID: [phone] Physical Exam: Temp: [97.9 F (36.6 C)-98.6 [...] deconditioning Skin: No jaundice or rash Neuro: pharmacist manager 3-7, 9-11 intact and equal. Strength grossly [...] Daily Progress Note Patient: Doug Flanagan, 1990, [id number] Physician: Kb Mitchell MD, Gen Med 7 [...] at this time. Looking into placement at [facility]. - Consulted neurology - NIF/ VC once [...] Kb Mitchell MD Anesthesiology, PGY-1 Pager ID: [phone] Physical Exam: Temp: [97.3 F (36.3 C)-98.4 [...] deconditioning Skin: No jaundice or rash Neuro: pharmacist manager 3-7, 9-11 intact and equal. Strength grossly equal in muscle groups of the bilateral UEsand LEs. Psych: Ox3, appropriate affect and cognition, mildly anxious Body mass index is 31.48 kg/m . Data Review: CBC WBC/Hgb/Hct/Plts: 7.87/12.0/36.8/260 (10/31 0004) Chem 7([facility]) Bun/Creat/Cl/CO2/Glucose: 11/0.64/108/20/84 (11/01 3) Na/K+/Phos/Mg/Ca: [...] Is the patient from a facility or jail?: No Patient lives with: Alone Living Environment: [...] patient on Anticoagulation? : No [id number] [place] [address] [address] Truant Officer Does the patient or employment representative express financial concerns? : No Employed?: Disabled Coping/Stress Concerns about patient s coping and stress?: No Concerns about patient s caregiver s coping and stress?: Unable to Assess Values and Beliefs Cultural or restorationism practices that may impact discharge planning and/or [...] planning and coordination. Stephanie ANGLIN, RN Clinical Assistant Basketball Coach [phone] * Lesly Smith RCP - 10/31/2022 9:02 [...] Daily Progress Note Patient: Doug Flanagan, 1990, [id number] Physician: Kb Mitchell MD, Gen Med 7 [...] Kb Mitchell MD Anesthesiology, PGY-1 Pager ID: [phone] Physical Exam: Temp: [97.8 F (36.6 C)-98.1 [...] deconditioning Skin: No jaundice or rash Neuro: pharmacist manager 3-7, 9-11 intact and equal. Strength grossly equal in muscle groups of the bilateral UEsand LEs. Psych: Ox3, appropriate affect and cognition Body mass index is 31.48 kg/m . Data Review: CBC WBC/Hgb/Hct/Plts: 11.71/11.7/35.8/265 (10/30 101) Chem 7([facility]) Bun/Creat/Cl/CO2/Glucose: 11/0.57/108/21/89 (10/30 101) Na/K+/Phos/Mg/Ca: 139/3.3/3.6/1.7/8.8 (10/30 [...] as she cannot bring her hand to [facility]. Pt reports that she is purchasing eating equipment. IADL History IADLs: needs assist Primary Language: Kenyan IADL Comments: Pt reports that her parents [...] noted Mobility Assessment: Supine to Sit Mobility Grainger Level: Supine->Sit: stand-by assist Bed Features/Set-up: Supine->Sit: Head of bed elevated, Use of bed rail Skilled Rationale: Technique of activity, Cues for increased safety Skilled Intervention/Details: Supine->Sit: Pt completed x 1 supine to sit with SBA to ensure balance maintenance throughout. Transfer Assessment: Sit to Stand Transfer Grainger Level: Sit->Stand: contact guard assist Assistive Device: Sit->Stand: gait belt (Non skid socks) Skilled Rationale: Tactile cues, Verbal cues, Technique of activity, Cues for increased safety Skilled Intervention/Details: Sit->Stand: Pt completed x 2 sit to stand from EOB with CGA to ensure balance maintenance as pt reports that she gets no warning before seizures/legs dropping. Stand to Sit Transfer Grainger Level: Stand->Sit: contact guard assist Assistive Device: Stand->Sit: gait belt (Non skid socks) Skilled Rationale: Hand placement, Verbal cues, Tactile cues, Technique of activity, Cues for increased safety Skilled Intervention/Details: Stand->Sit: Pt completed x 1 stand to sit to EOB and x 1 stand to sit to armed chair with CGA to maintain slowed descent. Functional Mobility: Functional Mobility Grainger Level: Functional Mobility/Gait: minimum assist (75% patient [...] correction) and overall unsteadiness. Outcome Score(s): CURRENT [facility] Daily Activity Inpatient Short Form Putting on/Taking Off Lower Body Clothin - A Lot of Assistance Bathin - A Lot of Assistance Toiletin - A Lot of Assistance Putting on/Taking Off Upper Body Clothin - A Little Assistance Groomin - A Little Assistance Eatin - A Lot of Assistance CURRENT -[facility] Activity Raw Score: 14 CURRENT [facility] Activity Functional Limitation/Modifier: 59.67% Currently Impaired [...] (detailed assessments w/several treatment options) Time In: 075 Time Out: 822 Total Visit Time: 31 [...] Acute Physical Therapy Evaluation Prior to Admission [facility] score(s): PRIOR LEVEL AM-PAC Mobility Raw [...] [facility] Pt reports that she is purchasing eating [...] two Mobility Assessment: Supine to Sit Mobility Grainger Level: Supine->Sit: stand-by assist Bed Features/Set-up: Supine->Sit: Head of bed elevated, Use of bed rail Skilled Rationale: Verbal cues, Tactile cues, Hand placement, Technique of activity Balance: Sitting Balance Static Sitting-Level of Assistance: Standby Standing Balance Static Standing-Level of Assistance: Contact guard Standing-Balance Support: Gait belt Transfer Assessment: Sit to Stand Transfer Grainger Level: Sit->Stand: contact guard assist Assistive Device: Sit->Stand: gait belt Skilled Rationale: Verbal cues, Tactile cues, Hand placement, Technique of activity Stand to Sit Transfer Grainger Level: Stand->Sit: contact guard assist Assistive Device: Stand->Sit: gait belt Skilled Rationale: Verbal cues, Tactile cues, Hand placement, Technique of activity Gait/Functional Mobility: Gait Assessment Grainger Level: Gait: (CGA to min A) Assistive Device: Gait: gait belt Ambulation Distance (Feet): 120 Gait Deviations Identified: decreased xuan, decreased gait speed, decreased heel strike, decreased step length, decreased stride length Gait Skilled Rationale: verbal, tactile, upright posture, increase step length, increase foot clearance Skilled Intervention/Details - Gait: Pt fluctuated between CGA and min A. Outcome Score(s): CURRENT [facility] Basic Mobility Inpatient Short Form Turning [...] with a railin - Total Assistance CURRENT [facility] Mobility Raw Score: 16 CURRENT [facility] Mobility Functional Limitation/Modifier: 54.16% Currently Impaired [...] PT Goals Plan of Care by Juliana Thrasher, PT at 10/30/2022 2:30 PM Version 1 [...] Physical Therapy Discharge Summary. documented in this [facility]07-03-2023 History of Present illness Narrative* Stephanie Rebolledo RN - 11/02/2022 2:14 PM EDT Final Discharge Planning and Transportation Final Discharge Planning Discharge Disposition: Home Services at Discharge: Occupational Therapy, Physical Therapy Community Agency Name(s) For Handoff: Plan to discharg to home with outpatient PT/OT and support from family. Plan Plan Comments: Follow up with neurology post discharge. Mimeographer Called: No Mode of Transfer: private vehicle Accompanied By: family member Stephanie ANGLIN RN Clinical Assistant Basketball Coach [phone] * Yudi Brown - 11/02/2022 12:12 PM [...] LOB/SOB. Mobility Assessment/Intervention: Supine to Sit Mobility Grainger Level: Supine->Sit: independent Bed Features/Set-up: Supine->Sit: Head of bed elevated, Use of bed rail Transfer Assessment/Intervention: Sit to Stand Transfer Grainger Level: Sit->Stand: stand-by assist Assistive Device: Sit->Stand: gait belt (Non skid socks) Skilled Rationale: Verbal cues, Technique of activity Skilled Intervention/Details: Sit->Stand: Pt completed x 2 sit to stands from EOB with SBA to ensure balance maintenance. Stand to Sit Transfer Grainger Level: Stand->Sit: stand-by assist Assistive Device: Stand->Sit: gait belt (Non skid socks) Skilled Rationale: Verbal cues, Cues for increased safety Skilled Intervention/Details: Stand->Sit: Pt completed x 2 stand to sits EOB with SBA to ensure controlled descent. Functional Mobility: Functional Mobility Grainger Level: Functional Mobility/Gait: stand-by assist Assistive Device: Functional Mobility/Gait: gait belt (Non skid socks) Functional Mobility Distance: Distance needed for common household mobility Functional Mobility Deficits: Balance, Generalized weakness Functional Mobility Skilled Rationale: Cues for increased safety Skilled Intervention/Details - Functional Mobility/Gait: Pt ambulated with no LOB/SOB with SBA to ensure balance maintenance. Outcome Score(s): CURRENT [facility] Daily Activity Inpatient Short Form Putting on/Taking Off Lower Body Clothin - A Little Assistance Bathin - A Little Assistance Toiletin - A Little Assistance Putting on/Taking Off Upper Body Clothin - No Assistance Groomin - No Assistance Eatin - No Assistance CURRENT [facility] Activity Raw Score: 21 CURRENT -[facility] Activity Functional Limitation/Modifier: 32.79% Currently Impaired [...] Acute Physical Therapy Treatment Prior to Admission [facility] score(s): PRIOR LEVEL AM-PAC Mobility Raw [...] standing. Mobility Assessment/Intervention: Supine to Sit Mobility Grainger Level: Supine->Sit: independent Bed Features/Set-up: Supine->Sit: Head of bed elevated Skilled Rationale: Verbal cues Transfer Assessment/Intervention: Sit to Stand Transfer Grainger Level: Sit->Stand: supervision Assistive Device: Sit->Stand: gait belt Skilled Rationale: Positioning, Verbal cues Skilled Intervention/Details: Sit->Stand: x4 stands. Cues to use UE's for push-off. Gait/Functional Mobility Assessment/Intervention: Gait Assessment Grainger Level: Gait: supervision Assistive Device: Gait: gait belt Ambulation Distance (Feet): 250 Gait Deviations Identified: decreased gait speed Gait Skilled Rationale: verbal Skilled Intervention/Details - Gait: No LOB or LE buckling noted. No cueing needed to improve gait quality. Stairs Assessment/Intervention: Stairs Assessment Grainger Level: Stair Negotiation: stand-by assist Assistive Device: [...] down due to anxiety. Outcome Score(s): CURRENT [facility] Basic Mobility Inpatient Short Form Turning [...] a railin - A Little Assistance CURRENT [facility] Mobility Raw Score: 20 CURRENT [facility] Mobility Functional Limitation/Modifier: 35.83% Currently Impaired [...] flat bed & no rail with modified charlotte inorder to improve functional mobility and safety. [...] Daily Progress Note Patient: Doug Flanagan, 1990, [id number] Physician: Hill Limon MD, [facility] Med 7 service Subjective/Interval History: No acute [...] at this time. Looking into placement at [facility]. - Consulted neurology - NIF/ VC once [...] Hill Limon MD Anesthesiology, PGY-1 Pager ID: [phone] Physical Exam: Temp: [97.9 F (36.6 C)-98.6 [...] deconditioning Skin: No jaundice or rash Neuro: pharmacist manager 3-7, 9-11 intact and equal. Strength grossly equal in muscle groups of the bilateral UEsand LEs. Psych: Ox3, appropriate affect and cognition, mildly anxious Body mass index is 31.48 kg/m . Data Review: CBC WBC/Hgb/Hct/Plts: 7.46/12.4/38.0/280 (11/01 100) Chem 7([facility]) Bun/Creat/Cl/CO2/Glucose: 14/0.79/109/23/95 (11/01 100) Na/K+/Phos/Mg/Ca: 141/4.0/--/1.9/-- (11/01 [...] Signed, Adolfo Flores MD * Joann Nagel [facility] - 11/01/2022 11:52 AM EDT 11/01/22 1150 [...] Daily Progress Note Patient: Doug Flanagan, 1990, [id number] Physician: Kb Mitchell MD, Gen Med 7 [...] at this time. Looking into placement at [facility]. - Consulted neurology - NIF/ VC once [...] Kb Mitchell MD Anesthesiology, PGY-1 Pager ID: [phone] Physical Exam: Temp: [97.3 F (36.3 C)-98.4 [...] deconditioning Skin: No jaundice or rash Neuro: pharmacist manager 3-7, 9-11 intact and equal. Strength grossly [...] Is the patient from a facility or jail?: No Patient lives with: Alone Living Environment: [...] Is the patient on Anticoagulation? : No [id number] - [place] [id number] - [address] [place], [place] [address] [employer] Officer Does the patient or employment representative express financial concerns? : No Employed?: Disabled Coping/Stress Concerns about patient s coping and stress?: No Concerns about patient s caregiver s coping and stress?: Unable to Assess Values and Beliefs Cultural or restorationism practices that may impact discharge planning and/or medical care?: No Initial Discharge Planning Anticipated discharge disposition: Home Transportation Available for Discharge: None Anticipated DME: unknown at this time Anticipated Services at Discharge: DME Patient Assessment Completed: Focused Risk of Readmission: 2.4 Category Reference: High:16-100 Mod-High:10-16 Mod-Low: 5-10 Low: 0-5 Expected Discharge Date: 11/03/2022 Discharge Planning Summary The LAVINIA mother at the bedside. Discussed discharge planning [...] planning and coordination. Stephanie ANGLIN, RN Clinical Assistant Basketball Coach [phone] * Lesly Smith RCP - 10/31/2022 9:02 [...] Daily Progress Note Patient: Doug Flanagan, 1990, [id number] Physician: Kb Mitchell MD, Gen Med 7 [...] Kb Mitchell MD Anesthesiology, PGY-1 Pager ID: [phone] Physical Exam: Temp: [97.8 F (36.6 C)-98.1 [...] deconditioning Skin: No jaundice or rash Neuro: pharmacist manager 3-7, 9-11 intact and equal. Strength grossly equal in muscle groups of the bilateral UEsand LEs. Psych: Ox3, appropriate affect and cognition Body mass index is 31.48 kg/m . Data Review: CBC WBC/Hgb/Hct/Plts: 11.71/11.7/35.8/265 (10/30 010) Chem 7(PMC) Bun/Creat/Cl/CO2/Glucose: 11/0.57/108/21/89 (10/30 101) Na/K+/Phos/Mg/Ca: 139/3.3/3.6/1.7/8.8 (10/30 [...] as she cannot bring her hand to [place]. Pt reports that she is purchasing eating equipment. IADL History IADLs: needs assist Primary Language: Kenyan IADL Comments: Pt reports that her parents [...] noted Mobility Assessment: Supine to Sit Mobility Grainger Level: Supine->Sit: stand-by assist Bed Features/Set-up: Supine->Sit: Head of bed elevated, Use of bed rail Skilled Rationale: Technique of activity, Cues for increased safety Skilled Intervention/Details: Supine->Sit: Pt completed x 1 supine to sit with SBA to ensure balance maintenance throughout. Transfer Assessment: Sit to Stand Transfer Grainger Level: Sit->Stand: contact guard assist Assistive Device: Sit->Stand: gait belt (Non skid socks) Skilled Rationale: Tactile cues, Verbal cues, Technique of activity, Cues for increased safety Skilled Intervention/Details: Sit->Stand: Pt completed x 2 sit to stand from EOB with CGA to ensure balance maintenance as pt reports that she gets no warning before seizures/legs dropping. Stand to Sit Transfer Grainger Level: Stand->Sit: contact guard assist Assistive Device: Stand->Sit: gait belt (Non skid socks) Skilled Rationale: Hand placement, Verbal cues, Tactile cues, Technique of activity, Cues for increased safety Skilled Intervention/Details: Stand->Sit: Pt completed x 1 stand to sit to EOB and x 1 stand to sit to armed chair with CGA to maintain slowed descent. Functional Mobility: Functional Mobility Grainger Level: Functional Mobility/Gait: minimum assist (75% patient [...] correction) and overall unsteadiness. Outcome Score(s): CURRENT -[facility] Daily Activity Inpatient Short Form Putting on/Taking Off Lower Body Clothin - A Lot of Assistance Bathin - A Lot of Assistance Toiletin - A Lot of Assistance Putting on/Taking Off Upper Body Clothin - A Little Assistance Groomin - A Little Assistance Eatin - A Lot of Assistance CURRENT -[facility] Activity Raw Score: 14 CURRENT -[facility] Activity Functional Limitation/Modifier: 59.67% Currently Impaired [...] Acute Physical Therapy Evaluation Prior to Admission [facility] score(s): PRIOR LEVEL AM-PAC Mobility Raw [...] as she cannot bring her hand to [facility]. Pt reports that she is purchasing eating [...] two Mobility Assessment: Supine to Sit Mobility Grainger Level: Supine->Sit: stand-by assist Bed Features/Set-up: Supine->Sit: Head of bed elevated, Use of bed rail Skilled Rationale: Verbal cues, Tactile cues, Hand placement, Technique of activity Balance: Sitting Balance Static Sitting-Level of Assistance: Standby Standing Balance Static Standing-Level of Assistance: Contact guard Standing-Balance Support: Gait belt Transfer Assessment: Sit to Stand Transfer Grainger Level: Sit->Stand: contact guard assist Assistive Device: Sit->Stand: gait belt Skilled Rationale: Verbal cues, Tactile cues, Hand placement, Technique of activity Stand to Sit Transfer Grainger Level: Stand->Sit: contact guard assist Assistive Device: Stand->Sit: gait belt Skilled Rationale: Verbal cues, Tactile cues, Hand placement, Technique of activity Gait/Functional Mobility: Gait Assessment Grainger Level: Gait: (CGA to min A) Assistive Device: Gait: gait belt Ambulation Distance (Feet): 120 Gait Deviations Identified: decreased xuan, decreased gait speed, decreased heel strike, decreased step length, decreased stride length Gait Skilled Rationale: verbal, tactile, upright posture, increase step length, increase foot clearance Skilled Intervention/Details - Gait: Pt fluctuated between CGA and min A. Outcome Score(s): CURRENT AM-[facility] Basic Mobility Inpatient Short Form Turning [...] with a railin - Total Assistance CURRENT [facility] Mobility Raw Score: 16 CURRENT [facility] Mobility Functional Limitation/Modifier: 54.16% Currently Impaired [...] Making: Moderate Time In: 0753 Time Out: 0822 Total Visit Time: 29 minutes Total Treatment Time (skilled, billable minutes): 29 minutes Patient location at end of session: chair Alarms on at end of session: RN aware Needs in reach. Upon discontinuation of Acute Care Physical Therapy Services or patient discharge from the hospitalthis note represents the current Physical Therapy Discharge Summary. documented in this encounterOS[facility]* Nursing Notes - Odalis Gomez RN - 11/02/2022 2:01 PM EDT AVS printed off and discharge instructions reviewed with the patient; RN discussed meds and f/up appointments; port de-accessed (line heparinized); pt to discharge home with all belongings Odalis Gomez RN [facility] Miscellaneous Notes* Nursing Notes - Odalis Gomez [...] flat bed & no rail with modified charlotte inorder to improve functional mobility and safety. [...] Montaño RN - 10/30/2022 5:57 PM EDT Rhonda Frankel MD: B8E 874 Flanagan: This patient has tuberculosis labs sent down today. If we're testing for TB then they need to be placed in airborne precautions until ruled out. Please place orders.Thanks! -Madai [id number] Madai Montaño RN * Plan of Care - Juliana Thrasher, FÉILX - 10/30/2022 2:30 PM EDT Problem: PT [...] flat bed & no rail with modified charlotte inorder to improve functional mobility and safety. [...] Waleska Turpin, MS3 Patient: Doug Flanagan, 1990, [id number] ADMIT DATE: 10/29/2022 Date of face to [...] no aura with seizures. No history of PRODUCT DEVELOPMENT INTERN infection. Risk factors include family history of an aunt with a seizure disorder and a fall with loss of consciousness in 5th grade. -Home AED medications: lamotrigine 100 mg QAM, 250 QPM, oxcarbazepine 150 mg at bedtime, swckxyrqzy105 mg daily and 300 mg at bedtime. [...] to confrontation. PERRL. Normal conjunctivae and lids. pharmacist manager III, IV and : extraocular movements intact. [...] 2 clonus Zamudio Babinski Down Down Coordination: Adyhmb-ps-qvpu intact bilaterally. Finger tapping intact. Sensation: Comments [...] 10/30/2022 12:23 AM EDT On admission to [facility], from OSH a dual RN initial assessment of skin condition was performed by VANESSA Morrow and Pooja MENDEZ. Skin Assessment: WDL LDA Added:Tc Mirza RN * Nursing Notes - Juanito Mirza RN - 10/29/2022 10:43 PM EDT Braille Proofreader rhonda [employer] for orders and to come see patient. documented in this [facility] Miscellaneous Notes* Nursing Notes - Odalis Gomez [...] flat bed & no rail with modified charlotte inorder to improve functional mobility and safety. [...] Montaño RN - 10/30/2022 5:57 PM EDT Rhonda Frankel MD: B8E 874 Flanagan: This patient has tuberculosis labs sent down today. If we're testing for TB then they need to be placed in airborne precautions until ruled out. Please place orders.Thanks! -Madai [phone] Madai Montaño RN * Plan of Care - Juliana Thrasher PT - 10/30/2022 2:30 PM EDT Problem: [...] Waleska Turpin, MS3 Patient: Doug Flanagan, 1990, [id number] ADMIT DATE: 10/29/2022 Date of face to [...] no aura with seizures. No history of PRODUCT DEVELOPMENT INTERN infection. Risk factors include family history of an aunt with a seizure disorder and a fall with loss of consciousness in 5th grade. -Home AED medications: lamotrigine 100 mg QAM, 250 QPM, oxcarbazepine 150 mg at bedtime, [id number] mg daily and 300 mg at bedtime. [...] 11.1 oz) O2 Device: room air (10/30/22 7308) Body mass index is 31.48 kg/m . [...] to confrontation. PERRL. Normal conjunctivae and lids. pharmacist manager III, IV and : extraocular movements intact. [...] 2 clonus Zamudio Babinski Down Down Coordination: Cowkvo-tt-cwjh intact bilaterally. Finger tapping intact. Sensation: Comments [...] GLUCOSE 89 10/30/2022 Coags: Ptt/Pt/Inr: 31.1/14.2/1.1 (10/30 101) Micro: No results found for: CULTURE Imaging [...] 10/30/2022 12:23 AM EDT On admission to [facility], from OSH a dual RN initial assessment of skin condition was performed by VANESSA Morrow and Pooja MENDEZ. Skin Assessment: WDL LDA Added:Tc Mirza RN * Nursing Notes - Juanito Mirza RN - 10/29/2022 10:43 PM EDT Braille Proofreader paged Gen Med 7 for orders and to come see patient. documented in this encounterOS[facility] Nurse Note* Nursing Notes - Odalis Gomez RN - 11/02/2022 1:35 PM EDT Resident called back and said he would make the necessary changes for her lamictal and would message when he got it fixed GM7 resident paged asking for someone to call RN regarding meds to discharge on Odalis Gomez RN [facility] Hospital course Narrative* Hill Limon MD - 11/02/2022 12:19 PM EDT Images from the original note were not included. Discharge Summary Name: Doug Flanagan Age: 32 y.o. Birthday: 1990 Admit Date: 10/29/2022 10:47 PM Discharge Date: 11/02/2022 Discharge Time: 1:30PM Discharge Unit: B8E Admission Information Admitting Physician: Nancy Faith MD Discharge Information Discharge Physician: Irena Hinson [...] during her recent hospital stay at [facility]. Doug Flanagan is a 32 y.o. female [...] copies of results or reports please contact [employer] @ [phone] LABS AT TIME OF DISCHARGE: Lab Results Component Value Date SODIUM 139 11/02/2022 POTASSIUM 3.7 11/02/2022 MAGNESIUM 1.9 11/02/2022 BUN 17 11/02/2022 CREATSERUM 0.76 11/02/2022 Lab Results Component Value Date WBC 6.95 11/02/2022 HGB 11.7 11/02/2022 PLATELET 267 11/02/2022 INR 1.1 11/01/2022 No results found for: HGBA1C No results found for: AST, ALT, ALKPHOS, BILITOTAL, BILIDIRECT, ALBUMIN PATIENT'S MEDICAL HOME AT DISCHARGE: Donna Timo Perdomo [address] / [facility] [id number] MEDICATIONS: Medication List for when you go [...] pending issues as noted. Irena Hinson MD Box Car Checker of Internal Medicine [facility] documented in this encounterOS[facility] Plan of care note* Plan of Care [...] and mobility tasks. Outcome: Adequate for Discharge [facility]07-03-2023 Hospital Discharge instructions* Discharge Instructions* Hill Limon [...] your strength as well. [facility] Discharge instructions* Discharge Instructions* Hill Limon [...] your strength as well. documented in this [facility] Plan of care note* Plan of [...] with flat bed & [facility] rail [facility] to improve functional mobility and safety. Outcome: Met This Shift Goal: Sit <-> Stand Description: Pt will perform sit to/from stand transfers with supervision with out an assistive device in order to improve functional mobility and safety. Outcome: Progressing Toward Goal [facility] Plan of care note* Plan of Care - Juanito Mirza RN - 11/02/2022 3:03 AM EDT Problem: Patient Care Overview Goal: Plan of Care Review Outcome: Ongoing Goal: Individualization & Mutuality Outcome: Ongoing Goal: Discharge Needs Assessment Outcome: Ongoing Goal: Interdisciplinary Rounds/Family Conf Outcome: Ongoing [facility]07-02-2023 Plan of care note* Plan of Care - Gina Rodríguez RN - 11/01/2022 8:02 PM EDT Problem: Patient Care Overview Goal: Plan of Care Review Outcome: Ongoing Goal: Individualization & Mutuality Outcome: Ongoing Goal: Discharge Needs Assessment Outcome: Ongoing Goal: Interdisciplinary Rounds/Family Conf Outcome: Ongoing [facility]07-01-2023 Plan of care note* Plan of Care - Gina Rodríguez RN - 10/31/2022 6:56 PM EDT Problem: Patient Care Overview Goal: Plan of Care Review Outcome: Ongoing Goal: Individualization & Mutuality Outcome: Ongoing Goal: Discharge Needs Assessment Outcome: Ongoing Goal: Interdisciplinary Rounds/Family Conf Outcome: Ongoing [facility]06-30-2023 Progress note* Certification - Hill Baker [...] facility. Hill Baker MD Internal Medicine, PG-2 [facility] Work Phone: 1(135) 333-389306-30-2023 Nurse Note* Nursing Notes - Madai Montaño RN - 10/30/2022 5:57 PM EDT Rhonda Frankel MD: B8E 874 Flanagan: This patient has tuberculosis labs sent down today. If we're testing for TB then they need to be placed in airborne precautions until ruled out. Please place orders.Thanks! -Madai [id number] Madai Montaño RN [facility]06-30-2023 Plan of care note* Plan of [...] flat bed & no rail with modified charlotte inorder to improve functional mobility and safety. Outcome: Ongoing Goal: Sit <-> Stand Description: Pt will perform sit to/from stand transfers with supervision with out an assistive device in order to improve functional mobility and safety. Outcome: Ongoing [facility]06-30-2023 Plan of care note* Plan of [...] ADLs, IADLs, and mobility tasks. Outcome: Ongoing [facility]06-30-2023 Consult note* Becky Rasmussen, - 10/30/2022 8:17 AM EDTAssociated Order(s): IP [...] to confrontation. PERRL. Normal conjunctivae and lids. pharmacist manager III, IV and : extraocular movements intact. [...] Zamudio negative negative Babinski Down Down Coordination: Orloqe-xv-ofrm intact bilaterally. Sensation: Comments Light touch Intact [...] status. Anna Marie Conway M.D. Attending Neurologist [facility] Work Phone: [phone] Consult note* Becky Rasmussen DO - 10/30/2022 8:17 AM EDTAssociated Order(s): IP CONSULT TO NEUROLOGY NEUROLOGY CONSULTATION NOTE Reason for consultation: 32 yo F with hx of seizures and MG on Ultomiris. Can you assist with titration of AEDs and starting EEG? History of present illness: Doug Flanagan is a 32 y.o. female with history of myasthenia gravis (diagnosed 2017), epilepsy and anxiety, presenting with breakthrough seizures. [...] mg 650 mg Oral Q6H PRN Brianna Chiell MD apixaban (ELIQUIS) tablet 5 mg 5 [...] to confrontation. PERRL. Normal conjunctivae and lids. pharmacist manager III, IV and : extraocular movements intact. [...] Zamudio negative negative Babinski Down Down Coordination: Ubdpws-jl-ljki intact bilaterally. Sensation: Comments Light touch Intact [...] M.D. Attending Neurologist documented in this encounterOSU [facility]06[facility]23 Consult note* Becky Rasmussen, DO - 10/30/2022 8:17 AM EDTAssociated Order(s): [...] Gravis: diagnosed in 2018. [facility]. AChR ab (blocking, binding [...] to confrontation. PERRL. Normal conjunctivae and lids. pharmacist manager III, IV and : extraocular movements intact. [...] Zamudio negative negative Babinski Down Down Coordination: Tdjcfw-si-csxb intact bilaterally. Sensation: Comments Light touch Intact [...] M.D. Attending Neurologist documented in this encounterOSU [facility]06[facility]23 Note* Medical Student - Waleska Turpin - 10/30/2022 7:43 AM EDT Images from the original note were not included. Inpatient Neurology Consultation Note Physician: Waleska Turpin, MS3 Patient: Doug Flanagan, 1990, [id number] ADMIT DATE: 10/29/2022 Date of face to [...] no aura with seizures. No history of PRODUCT DEVELOPMENT INTERN infection. Risk factors include family history of an aunt with a seizure disorder and a fall with loss of consciousness in 5th grade. -Home AED medications: lamotrigine 100 mg QAM, 250 QPM, oxcarbazepine 150 mg at bedtime, [id number] mg daily and 300 mg at bedtime. [...] to confrontation. PERRL. Normal conjunctivae and lids. pharmacist manager III, IV and : extraocular movements intact. [...] 2 clonus Zamudio Babinski Down Down Coordination: Hkbowc-bz-asfw intact bilaterally. Finger tapping intact. Sensation: Comments [...] 1 Nasim and Wave Complex, Generalized Impression Dougalvaro Flanagan is a 32 y.o. former healthcare [...] Dr. Conway, attending physician. Waleska Turpin, MS3 [facility]06-30-2023 Note* Medical Student - Waleska Turpin - 10/30/2022 7:43 AM EDT Images from the original note were not included. Inpatient Neurology Consultation Note Physician: Waleska Turpin MS3 Patient: Doug Flanagan, 1990, [id number] ADMIT DATE: 10/29/2022 Date of face to [...] no aura with seizures. No history of PRODUCT DEVELOPMENT INTERN infection. Risk factors include family history of an aunt with a seizure disorder and a fall with loss of consciousness in 5th grade. -Home AED medications: lamotrigine 100 mg QAM, 250 QPM, oxcarbazepine 150 mg at bedtime, sjzvmtsakg329 mg daily and 300 mg at bedtime. [...] to confrontation. PERRL. Normal conjunctivae and lids. pharmacist manager III, IV and : extraocular movements intact. [...] 2 clonus Zamudio Babinski Down Down Coordination: Zjcaja-zb-iuel intact bilaterally. Finger tapping intact. Sensation: Comments [...] Discussed with Dr. Conway, attending physician. Waleska Papi, MS3 [facility]06-30-2023 Plan of care note* Plan of Care - Juanito Mirza RN - 10/30/2022 2:27 AM EDT Problem: Patient Care Overview Goal: Plan of Care Review Outcome: Ongoing Goal: Individualization & Mutuality Outcome: Ongoing Goal: Discharge Needs Assessment Outcome: Ongoing Goal: Interdisciplinary Rounds/Family Conf Outcome: Ongoing [facility]06-30-2023 History and physical note* Brianna Chilel MD - 10/30/2022 1:20 AM EDT Internal Medicine Admission History & Physical Patient: Doug Flanagan, 1990, [id number] Physician: Brianna Chilel MD Service: Gen Med [...] seizes overnight, will stat page Neuro resident hotel casino floorperson - Discussed starting EEG with evening Neurology [...] Signed, Brianna Chilel MD PGY-1, Internal Medicine #[id number] Chief Complaint: Breakthrough seizures History of Present [...] of Valtoco (diazepem). She then reports mary ng a grand mal seizure lasting 3 minutes, turning blue for 2 of those minutes per her father's report. Given these repeated episodes, she went to [facility]. At [facility] ED,she had a 2 minute seizure [...] note, she recently saw Dr. Mejias with [facility] Neurology on 10/06/2022 who suggested Mestinon 30 [...] exceptions or additions noted below. Transferred from [facility] for neuro eval for breakthrough seizures and uncontrolled MG after being off of Ultomiris for a few months (now back on it). Do not think she has a PNA, nor do I see a clear infectious etiology but will do a workup to r/o infection. Also check CK/myositis panel. Appreciate neuro taking the lead on MG/seizures. Signed, Adolfo Flores MD [facility]06-30-2023 History and physical note* Brianna Chilel MD - 10/30/2022 1:20 AM EDT Internal Medicine Admission History & Physical Patient: Doug Flanagan, 1990, [id number] Physician: Brianna Chilel MD Service: Gen Med [...] seizes overnight, will stat page Neuro resident hotel casino floorperson - Discussed starting EEG with evening Neurology [...] Signed, Brianna Chilel MD PGY-1, Internal Medicine #[id number] Chief Complaint: Breakthrough seizures History of Present [...] Given these repeated episodes, she went to [facility]. At [facility] ED,she had a 2 minute seizure [...] Signed, Adolfo Flores MD documented in this encounter[facility] History and physical note* Brianna Chilel MD - 10/30/2022 1:20 AM EDT Internal Medicine Admission History & Physical Patient: Doug Flanagan, 1990, [id number] Physician: Brianna Chilel MD Service: Gen Med [...] seizes overnight, will stat page Neuro resident hotel casino floorperson - Discussed starting EEG with evening Neurology [...] Signed, Brianna Chilel MD PGY-1, Internal Medicine #[id number] Chief Complaint: Breakthrough seizures History of Present [...] of Valtoco (diazepem). She then reports mary ng a grand mal seizure lasting 3 minutes, turning blue for 2 of those minutes per her father's report. Given these repeated episodes, she went to [facility]. At [facility] ED,she had a 2 minute seizure [...] note, she recently saw Dr. Mejias with [facility] Neurology on 10/06/2022 who suggested Mestinon 30 [...] Signed, Adolfo Flores MD documented in this encounterOS[facility] Nurse Note* Nursing Notes - Juanito Mirza RN - 10/30/2022 12:23 AM EDT On admission to B8, from OSH a dual RN initial assessment of skin condition was performed by VANESSA Morrow and Pooja MENDEZ. Skin Assessment: WDL LDA Added:Tc Mirza RN [facility]06-29-2023 Nurse Note* Nursing Notes - Juanito Mirza RN - 10/29/2022 10:43 PM EDT Braille Proofreader paged [employer] for orders and to come see patient. [facility]06-29-2023 Discharge summary Author Sai Feldman [facility] October 29, 2022 4:50pm Note Date/Time October 29, 2022 11:4 5am [facility] Medical Records Department [address] [place] [address] Emergency Department Summary 10/29/22 MR#: [id number] Acct: [id number] Name: DOUG FLANAGAN Rep #:[id number] : 1990 32 From: Sai Wilson PCP: [...] ongoing. She has seen multiple specialist including [facility]. There is concern regarding psychiatric issues versus pathologic issues. Patient is alert and orient x4 on arrival and back to baseline. She is here with her mother. The seizure was witnessed by her fatherwho states that he caught her, patient did not hit the ground. Patient is back to baseline. Last seizure was August 07 and she was brought here. [facility] <BECCA Heart - Last Filed: 10/29/22 14:18> [facility] Medical History Anemia Chest pain Difficulty chewing [...] Time levetiracetam [From Keppra] Allergy Other Verified 10/29/22 11:15 Penicillins Allergy [...] General Appearance ED: well developed <Dr. Sai Feldman DO - Last Filed: 10/29/22 16:50> Physical [...] 72 Pulse Ox 100 Oxygen Delivery Method MDM <BECCA Heart - Last Filed: 10/29/22 14:18> MDM Lab Data Labs: Laboratory Results - last 24 hr 10/29/22 10/29/22 11:23 13:45 WBC 8.1 RBC 4.74 Hgb 12.8 Hct 40.1 MCV 84.6 MCH 27.0 MCHC 31.9 L RDW Std Deviation 40.2 RDW Coeff of Mariella 13.2 Plt Count 299 MPV 9.5 Immature Gran % (Auto) 0.600 Neut % (Auto) 67.2 Lymph % (Auto) 25.1 Bosque % (Auto) 4.8 Eos % (Auto) 1.7 [...] Sl. Cloudy Urine pH 7.0 Ur Specific Bluebell 1.015 Urine Protein Negative Urine Glucose (UA) [...] Attending note: Patient seen and evaluated with towel folder. I perform my own hdrp-xk-bbhk evaluation. I agree with the plan of [...] Feldman, DO - Last Filed: 10/29/22 16:50> [facility] Lab Data Attestation: I reviewed the patient's lab results. Labs: Laboratory Results - last 24 hr 10/29/22 10/29/22 11:23 13:45 WBC 8.1 RBC 4.74 Hgb 12.8 Hct 40.1 MCV 84.6 MCH 27.0 MCHC 31.9 L RDW Std Deviation 40.2 RDW Coeff of Mariella 13.2 Plt Count 299 MPV 9.5 Immature Gran % (Auto) 0.600 Neut % (Auto) 67.2 Lymph % (Auto) 25.1 Bosque % (Auto) 4.8 Eos % (Auto) 1.7 [...] Sl. Cloudy Urine pH 7.0 Ur Specific Bluebell 1.015 Urine Protein Negative Urine Glucose (UA) [...] Attending note: Patient seen and evaluated with towel folder. I perform my own tedy-qk-aufq evaluation. I agree with the plan of [...] Midlevel Provider: Zina Fierro ED Provider: Sai Feldman/Rx/DC Orders Clinical Impression: Breakthrough seizure, Myasthenia gravis, [...] to Another Type of HCF Discharge Location: [facility] Neurosurgery What to do if you have Problems For any increased pain, shortness of breath, bleeding, nausea or vomiting, chestpain, or any unexpected problems, contact your Primary Care Provider. Call [facility] ([phone]) or report to the closest Emergency Room. Call 911 if necessary. 10/29/22 1650 <Electronically signed by Sai Wilson> Cosigner Signature (if applicable): CC: Dr. Donna Perdomo MD ~ Signed [facility] Work Phone: 1(508) 845-245806-06-2023 History of Present illness Narrative* Pankaj Mejias MD - 10/06/2022 11:00 AM EDT Thank you for referring Doug Flanagan to the [facility] on 10/06/2022 for evaluation of [...] on prednisone. THe seizures worsened and she [place] weaker and had more shaking. She tried [...] She has also been seen at the [facility] for seizures. She was initially seen at [facility] Previous diagnostic workup for myasthenia gravis: Test name Date Result AChR antibodies blocking 2019 41 binding 2018 78.6 modulating 2019 52 Striated muscle MUSK antibodies LRP4 antibodies CMS gene testing Chest CT ([place]) 2018 normal Repetitive nerve stimulation Single fiber [...] taking for the patient. [facility] Instructions* Patient Instructions* Pankaj Mejias MD - 10/06/2022 11:00 AM EDT Try the mestinon again. Try 1/2 pill ( 30 mg total) in the AM and repeat 2 more times during the rest of the day to see if you tolerate 2. Try to find out what the maximum dose of cellcept you were on documented in [facility] Del Castillo [facility] September 07, 2022 6:35pm Note Date/Time September 07, 2022 6:23pm [facility] Medical Records Department [address] [place] [address] Emergency Department Summary 09/07/22 MR#: [id number] Acct: [id number] Name: DOUG FLANAGAN Rep #:[id number] : 1990 32 From: Brain Del Castillo MD PCP: Dr. Donna Perdomo MD Status:REG E R Location: ED HPI History of Present Illness Chief Complaint: Nausea/Vomiting Detail of Chief Complaint: Chest discomfort, shortness of breath, motor activitywithout loss of consc Informant: patient and family (Zkhpra-bt-vit) Onset/Context/Timing Onset: Today Context: Sudden Onset Timing: [...] is not normal for her with seizure. Ibrzym-qb-hog states she was not postictal. She also [...] received recent therapy. This was performed at [facility]. Patient's next dose of medication is in [...] Prior similar symptoms: No Recent Illness/Hospitalization: Yes [facility] Medical History Anemia Chest pain Difficulty chewing [...] Reaction Status Date / Time levetiracetam [From [facility]] Allergy Other Verified 09/07/22 14:38 Penicillins Allergy [...] 77.3 H Lymph % (Auto) 15.0 L Bosque % (Auto) 5.8 Eos % (Auto) 1.1 [...] WEEK Primary Care Provider: Donna Perdomo Referrals: Donan Perdomo MD [Primary Care Provider] - 3-5 Days Gerald Gilmore MD [Non-Staff] - Keep [facility] appointment Disposition Disposition: Home, Self Care What to do if you have Problems For any increased pain, shortness of breath, bleeding, nausea or vomiting, chestpain, or any unexpected problems, contact your Primary Care Provider. Call [facility] ([phone]) or report to the closest Emergency Room. Call 911 if necessary. 09/07/22 0585 <Electronically signed by Brain Del Castillo MD> Cosigner Signature (if applicable): CC: Dr. Donna Perdomo MD ~ Signed [facility] Work Phone: 1(251) 798-921105-05-2023 Telephone encounter Note* Telephone Encounter - Clifford Efrain Ma - 09/04/2022 6:24 PM EDT Name of Caller: Doug Contact Reason for Appointment: Doug submitted an online request on 09/04/22 regarding a call back to getscheduled for a RV SERVICER appt for Dx: Myasthenia Gravis/Epilepsy. Doug states [...] need, if any: N/A Medication Name: N/A [id number] Miscellaneous Notes* Telephone Encounter - Clifford Ma - 09/04/2022 6:24 PM EDT Name of Caller: Doug Contact Reason for Appointment: Doug submitted an online request on 09/04/22 regarding a call back to getscheduled for a RV SERVICER appt for Dx: Myasthenia Gravis/Epilepsy. Doug states [...] N/A Medication Name: N/A documented in this [facility]04-07-2023 NoteInternal Medicine: Med Team Discharge Summary Doug [...] of seizure, and depression who presented to [facility] on 07/30/22 for impending myasthenic crisis. Patient's [...] myasthenic crisis. The patient was admitted to [facility] to undergo plasmapheresis. A L tunneled dialysis [...] Your Medications These medications were sent to [facility] [address] [place] [address] Hours: Wednesday to Wednesday 10 am to [...] dentist may be desirable. (more content not included)...[facility]04-07-2023 Nurse Note* Alyssa Morales RN - 08/07/2022 3:48 PM EDT To IR for Tunnel Hemo dialysis catheter Pt positioned, prepped and draped per protocol 28 cm tunnelHD removed pressure held to site 10 min site benign dry dressing applied. . Pt tolerated procedure well, pt denies complaints post. Pt to her room.. [id number] Nurse Note* Alyssa Morales RN - 08/07/2022 3:48 PM EDT To IR for Tunnel Hemo dialysis catheter Pt positioned, prepped and draped per protocol 28 cm tunnelHD removed pressure held to site 10 min site benign dry dressing applied. . Pt tolerated procedure well, pt denies complaints post. Pt to her room.. documented in this [facility]04-07-2023 Hospital Discharge instructions* Discharge Instructions* Rene Hill MD - 08/07/2022 2:02 PM EDT - Please follow up with Dr. Gilmore on 08/19 regarding myasthenia gravis and future orders for Ultomiris infusions * Attachments The following attachments cannot be sent through Care Everywhere. * Myasthenia Gravis Discharge Instructions (Kenyan) * Myasthenia Gravis (Kenyan) documented in this [facility]04-07-2023 Note* Care Coordination - Michaela Caceres RN - 08/07/2022 1:04 PM EDT WAS ABLE TO SPEAK WITH PT'S [facility] WASHCLOTH FOLDER AGUSTIN THIS MORNING. SHE SAID AT THIS TIME, OUTPT MEDICATION PAYMENT HAS STILL NOT GONE THROUGH, BUT THEY WILL CONTINUE TO WORK ON THIS. SHE ALSO TOLD ME SHE WILL FOLLOW UP WITH PT. SPOKE WITH PT AND MOM, JUST FINISHED PLASMAPHERESIS. WILL GET TUNNELED LINE OUT AND DISCHARGE TO HOME LATER TODAY. AWARE AGUSTIN FROM [facility] WILL BE IN CONTACT. [facility] [id number] Note* Care Coordination - Michaela Caceres RN - 08/07/2022 1:04 PM EDT WAS ABLE TO SPEAK WITH [facility] AGUSTIN THIS MORNING. SHE SAID AT THIS TIME, OUTPT MEDICATION PAYMENT HAS STILL NOT GONE THROUGH, BUT THEY WILL CONTINUE TO WORK ON THIS. SHE ALSO TOLD ME SHE WILL FOLLOW UP WITH PT. SPOKE WITH PT AND MOM, JUST FINISHED PLASMAPHERESIS. WILL GET TUNNELED LINE OUT AND DISCHARGE TO HOME LATER TODAY. AWARE AGUSTIN FROM [facility] WILL BE IN CONTACT. [facility] [id number] Miscellaneous Notes* Care Coordination - Michaela Caceres RN - 08/07/2022 1:04 PM EDT WAS ABLE TO SPEAK WITH PT'S [facility] WASHCLOTH FOLDER AGUSTIN THIS MORNING. SHE SAID AT THIS TIME, OUTPT MEDICATION PAYMENT HAS STILL NOT GONE THROUGH, BUT THEY WILL CONTINUE TO WORK ON THIS. SHE ALSO TOLD ME SHE WILL FOLLOW UP WITH PT. SPOKE WITH PT AND MOM, JUST FINISHED PLASMAPHERESIS. WILL GET TUNNELED LINE OUT AND DISCHARGE TO HOME LATER TODAY. AWARE AGUSTIN FROM [facility] WILL BE IN CONTACT. * Care Coordination [...] educate pt on [facility] which provides outpatient/crisis MH services in her area. Pt was also provided with [employer] business card for behavioral health support while in the community. Pt thanked [employer] and was agreeable to contact [employer] if needed. * Significant Event - Geovani DO Atif - 08/06/2022 12:00 AM EDT Paged by [...] HAVING PLASMAPHERESIS. INFORMED THEM TALKED WITH AGUSTIN GODFREYSOGAUDENCIO YESTERDAY AND WILL TOUCH BASE WITH HER TOMORROW. MOM HAD QUESTIONS ABOUT FILLINGA FAMILY APPEAL FOR OUTPT IV MEDS, ALL QUESTIONS ANSWERED. * Care Coordination - Michaela Caceres RN - 08/04/2022 2:30 PM EDT SPOKE WITH PT, DOING GOOD THIS MORNING. SHE DID TALK [facility] FOL[facility] AGUSTIN YESTERDAY.GAVE ME HERE #, . I [...] Limits Permission given to speak with patient employment representative/caregiver as indicated: Yes Confirmation of Payer with patient/family: Yes [facility] No Confirmation of Primary Care Physician: [...] IV MEDICATION. EXPECTING CALL FROM HER [facility] WASHCLOTH FOLDER. I ALSO TRIED TO CALL DR GILMORE'S OFFICE TO CHECK ON STATUS OF MEDICATION, OFFICE IS CLOSED TODAY. WILL TRY TOMORROW. ANTICIPATE DISCHARGE TO HOME WHEN COMPLETED PLASMAPHERESIS TREATMENTS. Michaela Caceres RN documented in this [facility]04-07-2023 NoteMed Team Progress Note Doug Hannon Flanagan : 1990(31 y.o.) Date: August 07, [...] Dr. Gilmore neurology outpatie (more content not included)...[facility] [id number] History of Present illness Narrative* Ayla Don [...] and examined by myself on 08/07/22 * Perla Cantor MD - 08/06/2022 5:15 PM EDT [...] be monitored and followed by the diet environmental health technician. Dietitian available upon request. * Ayla [...] well Flowsheets in bed side chart * Perla Cantor MD - 08/05/2022 10:51 AM EDT Indications for Dialysis No data to display Subjective Interval History: Doug Flanagan has none. Did fine with pheresis Medications Current Facility-Administered Medications: acetaminophen (Tylenol) tablet 650 mg, 650 mg, Oral, q6h PRN, 650 mg at 08/04/22 9192 OR acetaminophen (Tylenol) suppository 650 mg, 650 mg, Rectal, q6h PRN, Antwon Nascimento, acetaminophen (Tylenol) tablet 1,000 mg, 1,000 mg, Oral, TID, Tanner Wang MD, 1,000 mg at 08/05/22 0925 apixaban (Eliquis) tablet 5 mg, 5 mg, Oral, BID, Antwon Orellanau DO, 5 mg at 08/05/22 0823 calcium gluconate 1,900 mg in sodium chloride 0.9 % 100 mL IVPB, 1,900 mg, IntraVENous, Once in dialysis, Get Manjarrez MD, 1,900 mg at 08/05/22 1038 citrate dextrose (ACD-A) infusion, 100-200 mL/hr, IntraCATHeter, Continuous, Perla Cnator MD, Last Rate: 100 mL/hr at 08/01/22 [...] Daily, Antwon Nascimento DO, 10 mg at 08/04/22 1950 heparin flush injection 100 Units, 100 Units, IntraCATHeter, q12h, Juliana Tavares MD, 100 Units at 08/05/22 0823 heparin flush injection 100 Units, 100 Units, IntraCATHeter, PRN, Juliana Tavares MD heparin injection 2,100 Units, 2,100 Units, IntraCATHeter, PRN, Perla Cantor MD, 2,100 Units at 08/03/22 1404 heparin injection 2,200 Units, 2,200 Units, IntraCATHeter, PRN, Perla Cantor MD, 2,200 Units at 08/03/22 1404 hydrOXYzine pamoate (Vistaril) capsule 25 mg, 25 mg, Oral, q6h PRN, Tanner Wang MD, 25 mg at 08/03/22 1852 ibuprofen tablet 600 mg, 600 mg, Oral, q6h PRN, Tanner Wang MD lamoTRIgine (LaMICtal) tablet 100 mg, 100 mg, Oral, Daily, Vinuth Koduru, DO, 100 mg at 08/05/22822 lamoTRIgine (LaMICtal) tablet 250 mg, 250 mg, [...] q12h, Juliana Tavares MD, 10 mL at 08/05/2223 sodium chloride 0.9% (NS) flush 10 mL, 10 mL, IntraCATHeter, PRN, Juliana Tavares MD sodium chloride 0.9% (NS) flush 5-40 mL, 5-40 mL, IntraVENous, q12h, Vinuth Koduru, DO, 10 mL at 08/05/22 0545 sodium chloride 0.9% (NS) flush 5-40 mL, 5-40 mL, IntraVENous, PRN, Vinuth Koduru, DO zonisamide (Zonegran) capsule 200 mg, 200 mg, Oral, Daily, Vinuth Koduru, DO, 200 mg at 08/05/2223 zonisamide (Zonegran) capsule 300 mg, 300 mg, Oral, Nightly, Antwon Nascimento DO, 300 mg at 08/04/221952 Objective Physical Exam Physical Exam [facility] Non focal neuro +weakness Relevant Results [...] TDC removed on Wednesday prior to discharge Perla Cantor MD 08/05/2022 10:51 AM * Ayla Don MD - 08/05/2022 7:24 AM EDT Med Team Progress Note Doug Flanagan : 1990(31 y.o.) Date: August 05, 2022 Med Team: Sulma Attending: Dr. Otto [...] y.o.) Date: August 04, 2022 Med Team: D Attending: Dr. Don [...] and examined by myself on 08/04/22 * Perla Cantor MD - 08/03/2022 4:42 PM EDT [...] dextrose (ACD-A) infusion, 100-200 mL/hr, IntraCATHeter, Continuous, Perla Cantor MD, Last Rate: 100 mL/hr at 08/01/22 1146, 1,000 mL at 08/01/22 1146 citrate dextrose (ACD-A) infusion, 100-200 mL/hr, CRRT, Continuous, Perla Cantor MD, Last Rate: 1,000 mL/hr at [...] injection 2,100 Units, 2,100 Units, IntraCATHeter, PRN, Perla Cantor MD, 2,100 Units at 08/03/22 1404 heparin injection 2,200 Units, 2,200 Units, IntraCATHeter, PRN, Perla Cantor MD, 2,200 Units at 08/03/22 1404 [...] Nightly, Antwon Nascimento DO, 250 mg at 08/02/22 2123 LORazepam [...] Nightly, Vinuth Koduru, DO, 300 mg at 08/02/222123 Objective Physical Exam Physical Exam NAD [facility] Non focal neuro +weakness Relevant Results Vital [...] TDC removed on Wednesday prior to discharge Perla Cantor MD 08/03/2022 4:43 PM * Narcisa [...] agreeable) - Situational anxiety during admission -- feels was not informed ahead of time that [...] 12:13 PM EDT Pt. NIF: -40 * Perla Cantor MD - 08/01/2022 10:35 AM EDT [...] be monitored and followed by the diet environmental health technician. * Tanner Wang MD - 08/01/2022 [...] -20 3 attempts made documented in this [facility]04-06-2023 NoteRenal Progress Note Chart reviewed Needs pheresis #5 tomorrow with tunneled HD line removal to follow Ok to discharge afterwards Does NOT need follow up with nephrology afterwards To go back to Dr. Gilmore as [facility]04-06-2023 Note* Care Coordination - DARRION Salamanca - [...] educate pt on [facility] which provides outpatient/crisis MH services in her area. Pt was also provided with [employer] business card for behavioral health support while in the community. Pt thanked [employer] and was agreeable to contact [employer] if needed. [id number] Note* Care Coordination - DARRION Salamanca - [...] educate pt on [facility] which provides outpatient/crisis MH services in her area. Pt was also provided with [employer] business card for behavioral health support while in the community. Pt thanked [employer] and was agreeable to contact [employer] if needed. [facility] [id number] NoteMed Team Progress Note Doug Flanagan : [...] - Outpatient follow-up appoint (more content not included)...[facility]04-06-2023 Note* Significant Event - Geovani Atif - 08/06/2022 12:00 AM EDT Paged by [...] DO, MS, PGY-1 08/06/22 at 3:31 AM [employer] Work Phone: 1(267) 499-260604-06-2023 Note* Significant Event - Geovani Srivastava DO [...] DO, MS, PGY-1 08/06/22 at 3:31 AM [facility] [employer] Work Phone: 1(784) 339-707104-05-2023 NoteDischarge Summary Doug Flanagan : 1990 ADMIT [...] COURSE: 31F with PMH myasthenia gravis (diagnosed 2018), history of seizure, and depression who presented to [facility] on 07/30/22 for impending myasthenic crisis. Patient's [...] myasthenic crisis. The patient was admitted to [facility] to undergo plasmapheresis. A L tunneled dialysis [...] with outpatient neurologist Dr. Gilmore on 08/19/22. SIGNIFICANT DIAGNOSTIC STUDIES: MR brain with and [...] Complexity: follow up within 7-14 calendar days (92950) [] Severe Complexity: follow up within 7 calendar days (38731) FOLLOW UP TESTING, PENDING RESULTS OR REFERRALS [...] and taking th (more content not included)... [facility]04-05-2023 Note* Care Coordination - Michaela Caceres RN - 08/05/2022 1:41 PM EDT SPOKE WITH PT AND MOM AT BEDSIDE THIS MORNING. PT HAVING PLASMAPHERESIS. INFORMED THEM TALKED WITH AGUSTIN FOR [employer] YESTERDAY AND WILL TOUCH BASE WITH HER TOMORROW. MOM HAD QUESTIONS ABOUT FILLINGA FAMILY APPEAL FOR OUTPT IV MEDS, ALL QUESTIONS ANSWERED. [facility] [id number] Note* Care Coordination - Michaela Caceres RN - 08/05/2022 1:41 PM EDT SPOKE WITH PT AND MOM AT BEDSIDE THIS MORNING. PT HAVING PLASMAPHERESIS. INFORMED THEM TALKED WITH AGUSTIN FOR [employer] YESTERDAY AND WILL TOUCH BASE WITH HER TOMORROW. MOM HAD QUESTIONS ABOUT FILLINGA FAMILY APPEAL FOR OUTPT IV MEDS, ALL QUESTIONS ANSWERED. [facility]04-05-2023 NoteMed Team Progress Note Doug Flanagan : 1990(31 y.o.) Date: August 05, 2022 Med Team: Sulma Attending: Dr. Otto [...] Value Ref Range Sta (more content not included)...[facility] 08-04-2022 Note* Care Coordination - Michaela Caceres RN - 08/04/2022 2:30 PM EDT SPOKE WITH PT, DOING GOOD THIS MORNING. SHE DID TALK [facility] FOLDER AGUSTIN YESTERDAY.GAVE ME HERE #, . I DID SPEAK WITH AGUSTIN, SHE IS WORKING TO GET PT'S OUTPT IV MED APPROVED. SHE WILL TOUCH BASE WITH ME TOWARDS END OF WEEK. PLAN FOR PLASMAPHERESIS TOMORROW. DISCHARGE TO HOME WHEN MEDICALLY READY. [facility] [id number] Note* Care Coordination - Michaela Caceres RN - 08/04/2022 2:30 PM EDT SPOKE WITH PT, DOING GOOD THIS MORNING. SHE DID TALK WITH HER [employer] WASHCLOTH FOLDER AGUSTIN YESTERDAY.GAVE ME HERE #, . I DID SPEAK WITH AGUSTIN, SHE IS WORKING TO GET PT'S OUTPT IV MED APPROVED. SHE WILL TOUCH BASE WITH ME TOWARDS END OF WEEK. PLAN FOR PLASMAPHERESIS TOMORROW. DISCHARGE TO HOME WHEN MEDICALLY READY. 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 Pt reported that [...] our services. 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 Pt reported that [...] services. Risk Management: no special precautions * Perla Cantor MD - 07/31/2022 2:29 PM EDT [...] Name: Doug Flanagan Patient : 1990 Acct: [id number] Date of Admission: 07/30/2022 Room/Bed: PCP: DONNA [...] 8 (eight) weeks. 02/05/22 Historical Provider, MD rameyulizumabTraciecwvz (Ultomiris) 300 MG/3ML injection as directed Intravenous [...] 650 mg, 650 mg, Rectal, q6h PRN, Shankaruth DO Pily apixaban (Eliquis) tablet 5 mg, 5 mg, Oral, BID, Vinuth Koduru, DO, 5 mg at 07/31/22 08 escitalopram (Lexapro) tablet 10 mg, 10 mg, Oral, Daily, Antwon Barboururu, DO, 10 mg at 07/30/222050 heparin flush injection 100 Units, 100 Units, IntraCATHeter, q12h, Juliana Tavares MD heparin flush injection 100 Units, 100 Units, IntraCATHeter, PRN, Juliana Tavares MD heparin injection 2,100 Units, 2,100 Units, IntraCATHeter, PRN, Perla Cantor MD heparin injection 2,200 Units, 2,200 Units, IntraCATHeter, PRN, Perla Cantor MD ketorolac (Toradol) injection 15 mg, 15 mg, IntraVENous, q6h PRN, Juliana Tavares MD, 15 mg at 07/31/22 0834 lactated Ringer's infusion, 100 mL/hr, IntraVENous, Continuous, Juliana Tavares MD, Last Rate: 100 mL/hr at 07/31/22 0841, 100 mL/hr at 07/31/22 0841 lamoTRIgine (LaMICtal) tablet 100 mg, 100 mg, Oral, Daily, Antwon Orellanau, DO, 100 mg at 07/31/22 08 lamoTRIgine (LaMICtal) tablet 250 mg, 250 mg, Oral, Nightly, Antwon Orellanau, DO, 250 mg at 07/30/222049 LORazepam (Ativan) [...] mg, 4 mg, IntraVENous, q6h PRN, Antwon Nascimento DO, 4 mg at 07/30/22 1916 OXcarbazepine (Trileptal) tablet 150 mg, 150 mg, Oral, Daily, Antwon Orellanau, DO, 150 mg at polyethylene glycol (PEG) 3350 (Miralax) packet 17 g, 17 g, Oral, Daily PRN, Antwon Orellana, DO potassium chloride CR (Klor-Con M10) ER tablet 40 mEq, 40 mEq, Oral, BID, Juliana Tavares MD, 40 mEqat 07/31/22 0842 sodium chloride 0.9 % infusion, 5-250 mL/hr, IntraVENous, PRN, Antwon Orellana, DO sodium chloride 0.9% (NS) flush 10 mL, 10 mL, IntraCATHeter, q12h, Juliana Tavares MD, 10 mL at 07/31/22 0810 sodium chloride 0.9% (NS) flush 10 mL, 10 mL, IntraCATHeter, PRN, uJliana Tavares MD sodium chloride 0.9% (NS) flush 5-40 mL, 5-40 mL, IntraVENous, q12h, Antwon Nascimento, DO, 10 mL at 07/31/22 0610 sodium chloride 0.9% (NS) flush 5-40 mL, 5-40 mL, IntraVENous, PRN, Antwon Orellana, DO zonisamide (Zonegran) capsule 200 mg, 200 mg, Oral, Daily, Antwon Nascimento, , 200 mg at 07/31/22 0848 zonisamide (Zonegran) capsule 300 mg, 300 mg, Oral, Nightly, Antwon Nascimento, DO Current Outpatient Medications: acetaminophen (Tylenol) 325 [...] -- 94 15 97 % -- -- 07/30/228 103/70 -- -- 83 14 95 % [...] 348 ms QTC Interval 462 ms P [place] 38 degrees QRS [place] 8 degrees T Wave [place] 3 degrees [place] Interval 185 ms Hepatitis B surface antibody [...] 43 ALT 8 AST 17 BILITOT 0.7 @BRIEFLAB([facility]) ABGs:)No results for input(s): PH, PO2, PCO2, [...] care for this patient. documented in this [facility]04-03-2023 Note* Care Coordination - Michaela Caceres RN - 08/03/2022 12:45 PM EDT Care Managment Initial Assessment Date: 08/03/2022 Patient Name: Doug Flanagan : 1990 Patient Information Source of Information: Patient Cognition/Language: WFL - Within Functional Limits Permission given to speak with patient employment representative/caregiver as indicated: Yes Confirmation of Payer with patient/family: Yes Payer Name: [employer] [place]: No Confirmation of Primary Care Physician: Confirmed [...] IV MEDICATION. EXPECTING CALL FROM HER [facility] WASHCLOTH FOLDER. I ALSO TRIED TO CALL DR GILMORE'S OFFICE TO CHECK ON STATUS OF MEDICATION, OFFICE IS CLOSED TODAY. WILL TRY TOMORROW. ANTICIPATE DISCHARGE TO HOME WHEN COMPLETED PLASMAPHERESIS TREATMENTS. Michaela Caceres RN [facility] [id number] Note* Care Coordination - Michaela Caceres RN - 08/03/2022 12:45 PM EDT Care Managment Initial Assessment Date: 08/03/2022 Patient Name: Doug Flanagan : 1990 Patient Information Source of Information: Patient Cognition/Language: WFL - Within Functional Limits Permission given to speak with patient employment representative/caregiver as indicated: Yes Confirmation of Payer with patient/family: Yes Payer Name: [facility] : No Confirmation of Primary Care Physician: [...] IV MEDICATION. EXPECTING CALL FROM HER [facility] WASHCLOTH FOLDER. I ALSO TRIED TO CALL DR GILMORE'S OFFICE TO CHECK ON STATUS OF MEDICATION, OFFICE IS CLOSED TODAY. WILL TRY TOMORROW. ANTICIPATE DISCHARGE TO HOME WHEN COMPLETED PLASMAPHERESIS TREATMENTS. Michaela Caceres RN [facility]04-03-2023 NoteMed Team Progress Note Doug Flanagan : [...] from -35 to -40; (more content not included)...[facility]04-01-2023 NoteRenal Progress Note At imaging study Long talk with mother who is very tearful and unhappy over a number of things in her care, but not necessarily here Will do pheresis #2 today Next tx Wednesday Will need TDC removed after 5th and inal treament unless neuro recommends more treatments[facility]03-[facility]-20[facility] Consult note* Perla Cantor MD - 07/31/2022 2:29 PM EDT [...] do treatments every other day Hypokalemia- [facility] TownshipUrhyhu91-07-3242 Emergency department Note* Rupal Garcia RN - 07/31/2022 10:12 AM EDT Transport at bedside to take the pt to 7E. Pt is calm and cooperative at this time, respirations even and unlabored. Rupal Garcia RN 07/31/22 1013 [facility] TownshipEbnqwz74-71-7283 Emergency department Note* Rupal Garcia RN - [...] 07/31/2022 7:36 AM EDT Report received from [facility] RN. Rupal Garcia RN 07/31/22 0736 * [...] 07/30/2022 7:49 PM EDT Patient up to [facility] for large BM, family at bedside. Maria [...] 07/30/2022 12:40 PM EDT Emergency Department Encounter [facility] EMERGENCY DEPT Patient: Doug Flanagan : 1990 [...] 07/30/2022 12:40 PM EDT Emergency Department Encounter [facility] Patient: Doug Flanagan : 1990 [...] [employer] Rivka Cid DO 07/30/22 1721 * Cielo Recinos RN - 07/30/2022 12:40 PM EDT Bed: 26 Expected date: Expected time: Means of arrival: Comments: triage Cielo Recinos RN 07/30/22 1412 documented in this [facility]03-31-2023 Emergency department Note* Rupal Garcia RN - 07/31/2022 9:57 AM EDT Pt and family updated on the plan of care. Pt is lying in bed resting comfortably, respirations even and unlabored. Pt denies any needs at this time. Rupal Garcia RN 07/31/22 0958 [id number] Emergency department Note* Rupal Garcia RN - 07/31/2022 9:57 AM EDT Pt is in for transport. Rupal Garcia RN 07/31/22 0957 [id number] Emergency department Note* Rupal Garcia RN - 07/31/2022 9:38 AM EDT Internal medicine at bedside. Rupal Garcia RN 07/31/22 0938 [id number] Consult note* Josemanuel Le MD - 07/31/2022 9:33 AM EDT Associated Order(s): IP CONSULT TO NEUROLOGY Neurology Consult Note - Neurology Service Patient Name: Doug Flanagan Patient : 1990 Acct: [id number] Date of Admission: 07/30/2022 Room/Bed: PCP: DONNA [...] every 8 (eight) weeks. 02/05/22 Historical ProviderMD ravulizumabTraciecwvz (Ultomiris) 300 MG/3ML injection as directed Intravenous [...] mg, 650 mg, Rectal, q6h PRN, Antwon Orellanau, DO apixaban (Eliquis) tablet 5 mg, 5 mg, Oral, BID, Antwon Nascimento DO, 5 mg at 07/31/22 08 escitalopram (Lexapro) tablet 10 mg, 10 mg, Oral, Daily, Antwon Orellanau, DO, 10 mg at 07/30/222050 heparin flush injection 100 Units, 100 Units, IntraCATHeter, q12h, Juliana Tavares MD heparin flush injection 100 Units, 100 Units, IntraCATHeter, PRN, Juliana Tavares MD heparin injection 2,100 Units, 2,100 Units, IntraCATHeter, PRN, Perla Cantor MD heparin injection 2,200 Units, 2,200 Units, IntraCATHeter, PRN, Perla Cantor MD ketorolac (Toradol) injection 15 mg, 15 mg, IntraVENous, q6h PRN, Juliana Tavares MD, 15 mg at 07/31/22 0834 lactated Ringer's infusion, 100 mL/hr, IntraVENous, Continuous, Juliana Tavares MD, Last Rate: 100 mL/hr at 07/31/22 0841, 100 mL/hr at 07/31/22 08 lamoTRIgine (LaMICtal) tablet 100 mg, 100 mg, Oral, Daily, Antwon Orellanau DO, 100 mg at 07/31/22 08 lamoTRIgine (LaMICtal) tablet 250 mg, 250 mg, Oral, Nightly, Antwon Orellanau, DO, 250 mg at 07/30/222049 LORazepam (Ativan) [...] mg, 300 mg, Oral, Nightly, Vinuth Koduru, DO Current Outpatient Medications: acetaminophen (Tylenol) 325 [...] -- 90 15 95 % -- -- 07/30/22 2237 100/64 -- -- 94 15 97 % -- -- 07/30/22 2158 103/70 -- -- 83 14 95 % -- -- 07/30/22 205 108/68 -- -- 88 15 98 % [...] 348 ms QTC Interval 462 ms P [place] 38 degrees QRS [place] 8 degrees T Wave [place] 3 degrees GA Interval 185 ms Hepatitis B surface antibody [...] 43 ALT 8 AST 17 BILITOT 0.7 @BRIEFLAB(TSH) ABGs:)No results for input(s): PH, PO2, PCO2, [...] counseling and coordinating care for this patient. [employer] Phone: [phone]) 661-765303-31-2023 NoteMed Team Progress Note Doug Parvez Masha : 1990(31 y.o.) Date: July 31, 2022 Med Team: D Attending: Dr. Zhao Chief Complaint: Impending MG [...] TROPONINI No results fo (more content not included)...[facility]03-31-2023 Emergency department Note* Rupal Garcia RN - 07/31/2022 9:00 AM EDT Patient laying in bed resting comfortably, respirations even and unlabored. No sx of distress noted. Pt medicated per order. Pt and family deny any needs at this time. No new orders. Rupal Garcia RN 07/31/22 0923 [facility] TownshipOzunvx45-41-9048 Emergency department Note* Sissy Weeks RN - 07/31/2022 8:59 AM EDT Admitting at bedside. Sissy Weeks RN 07/31/22 0859 [facility] TownshipGnxffs66-54-6673 Emergency department Note* Rupal Garcia RN - 07/31/2022 7:55 AM EDT Introduced self to pt. Pt is laying in bed resting comfortably, respirations even and unlabored. Nosx of distress noted at this time. Patient denies any needs. No new orders at this moment. Rupal Garcia RN 07/31/22 0801 [address]mzviy95-25-2546 Emergency department Note* Rupal Garcia RN - 07/31/2022 7:36 AM EDT Report received from [facility] RN. Rupal Garcia RN 07/31/22 0736 [id number] Emergency department Note* Micki Michael RN - 07/31/2022 7:19 AM EDT Patient provided with breakfast menu. Family at bedside. Family provided with coffee. Patients ice pack was refilled. Patient has no further needs at this time. Micki Michael RN 07/31/22 0721 [address]Vcalkc38-86-2664 Emergency department Note* Leslie aCsillas RN - 07/30/2022 8:32 PM EDT Called pharmacy requesting patients 6 o'clock medications. Spoke to Rich. He said he will send them. Leslie Casillas RN 07/30/222038 [address]Rcgxfu64-16-6244 Emergency department Note* Maria L Hightower RN - 07/30/2022 7:49 PM EDT Patient up to [facility] for large BM, family at bedside. Maria L Hightower RN 07/30/221948 [address]Oarjmx91-50-9708 Emergency department Note* Leslie Casillas RN - 07/30/2022 6:54 PM EDT Patient back from having infusions. Leslie Casillas RN 07/30/22 6406 [facility] TownshipNbhskr89-54-4818 NoteInternal Medicine: Med Team Initial History and [...] MG and seizures), depression that presented to [facility] on 07/30/2022 from dialysis center for admission [...] Substance and Sexual Act (more content not included)...[facility] 07-30-2022 History and physical note* Ward [...] MG and seizures), depression that presented to [facility] on 07/30/2022 from dialysis center for admission [...] Assessment and Plan: Principal Problem: Myasthenic crisis ([facility] ([facility]) Myasthenic Crisis -Follows with Dr. Gilmore neurology [...] 75 minutes spent on the above care. [facility] [id number] History and physical note* Ward Zhao, DO [...] MG and seizures), depression that presented to [facility] on 07/30/2022 from dialysis center for admission [...] every 8 (eight) weeks. 02/05/22 Historical ProviderMD ravulizumabTraciecwvz (Ultomiris) 300 MG/3ML injection as directed Intravenous [...] Assessment and Plan: Principal Problem: Myasthenic crisis ([facility] ([facility]) Myasthenic Crisis -Follows with Dr. Gilmore neurology [...] on the above care. documented in this [facility]03-30-2023 Emergency department Note* Leslie Casillas RN - 07/30/2022 4:34 PM EDT Patient had episode of emesis. Order for zofran in [facility]. Patient has IV port I was going to access before going for infusion. After gathering supplies At bedside. Transport arrived shortly after to take patient for infusion. Gave patient ODT zofran and patient transported to dialysis. Leslie Casillas RN 07/30/22 1637 [facility] TownshipWsnmxz20-82-7895 Emergency department Note* Cielo Recinos RN - 07/30/2022 12:40 PM EDT Bed: 26 Expected date: Expected time: Means of arrival: Comments: triage Cielo Recinos RN 07/30/22 1412 [facility] TownshipOwjoec39-23-6009 Physician Emergency department Note* Edwige Bob PA-C [...] provider for clarification) Edwige Bob PA-C Acute [facility] Edwige Bob PA-C 07/30/22 1443 [employer] Phone: [phone] Physician Emergency department Note* Regina Walls MD [...] Emergency Medicine Provider Regina Walls MD Resident 07/30/222 [employer] Phone: [phone] Physician Emergency department Note* Rivka Cid DO - 07/30/2022 12:40 PM EDT Emergency Department Encounter [facility] EMERGENCY DEPT Patient: Doug Flanagan : 1990 [...] [employer] Rivka Cid DO 07/30/22 1723 [facility] [employer] Work Phone: [phone]) 440-825003-30-2023 NoteIVR History & Physical and Clearance Inpatient consult to Anesthesiology Consult performed by: Janine Gabriel, TAMEKA - SUPERVISOR TYPESETTING Consult ordered by: Virgil Valverde MD Name: Doug Flanagan : 1990 (Age-31 y.o.) Date of Service: Pt seen/examined on 07/30/2022 Chief Complaint: Myasthenia gravis exacerbation History Of Present Illness: We are asked to see/evaluate Doug Flanaagn, a 31 y.o. female for pre-procedure evaluation [...] with the planned p (more content not included)...[facility]03-30-2023 History and physical note* TAMEKA Garrison [...] Electronically signed by: TAMEKA Garrison CNP Date: [facility] [employer] Work Phone: [phone]) 186-311203-30-2023 History and physical note* TAMEKA Garrison CNP [...] Electronically signed by: Janine Gabriel APRN - [facility] Date: documented in this [facility]03-30-2023 Nurse Note* Jefry Abraham RN - 07/30/2022 9:00 AM EDT Pt provided with discharge instructions and all questions answered. Steady, independent gait on unit. Discharged with all belongings. Pt discharge to registration via wheelchair by IA with mother. Ptto go to dialysis. [facility] TownshipMenmzm04-84-2758 Nurse Note* Jefry Abraham RN - 07/30/2022 9:00 AM EDT Pt provided with discharge instructions and all questions answered. Steady, independent gait on unit. Discharged with all belongings. Pt discharge to registration via wheelchair by IA with mother. Ptto go to dialysis. documented in this encounterSUniversity Hospitals TriPoint Medical CenterNluolf92-49-5448 History of Present illness Narrative* Zaynab Herman APRN.ROLF - 07/17/2022 2:15 PM EDT Patient came in with complaints of severe left flank pain. Says it radiates to the front around [facility]. Patient says it is a 10 out of 10. Patient says she is extremely nauseated and sweating and uncomfortable. Patient says this started 3 days ago and seems to be getting worse. Patient denies any other symptoms with it at this time. He is being referred to the emergency room for full evaluation. documented in this encounterGalion [facility]03-12-2023 History of Present illness Narrative* BRANDON Hurtado - 07/12/2022 11:16 AM EDT This note was created using [employer]. Subjective Doug Flanagan is a 31 year [...] 9 years of age Fell off the Curves; lost consciousness 3-5 minutes PAST SURGICAL HISTORY Procedure Laterality Date APPENDECTOMY COLONOSCOPY 04/08/2022 No repeat due to age CONIZATION OF CERVIX; COLD KNIFE/LASER 10/17/2021 Paragard removal, Mirena IUD insertion HIP SURGERY HX Right INSJ TUNNELED CTR VAD W/SUBQ PORT AGE 5 YR/> 10/16/2020 LEEP PROCEDURE (INSURANCE ADVISER DEPT)_*FL THYMECTOMY, PARTIAL/TOTAL total ALLERGIES Compazine [Prochlorperazine], [...] ER evaluation. BRANDON Hurtado documented in this encounterGalion Community Hospital12-28-2022 Instructions* Patient Instructions* Salome Juárez MA [...] contact your doctor's office. documented in this encounterGalion Community Hospital12-28-2022 History of Present illness Narrative* Sarah Pop MD - 04/29/2022 8:33 AM EST Bobbin Hauler offered: Patient declinesMonica Camacho is a 31 [...] patient. Sarah Pop DO documented in this encounterGalion Community Hospital12-07-2022 Nurse Note* Reid Dodson - 04/08/2022 1:42 PM EST MD at the bedside. [facility]12-[facility] Nurse Note* Reid Dodson - 04/08/2022 1:42 PM EST MD at the bedside. * Reid Dodson - 04/08/2022 1:30 PM EST Discharge instructions given, pt verbalized understanding. * Karin Ferguson RN - 04/08/2022 12:35 PM EST Gladys Ventura RN accessed port. Pt tolerated well. documented in this encounterGalion Community Hospital12-07-2022 Nurse Note* Reid Dodson - 04/08/2022 1:30 PM EST Discharge instructions given, pt verbalized understanding. [facility]12-07-2022 Nurse Note* Karin Ferguson RN - 04/08/2022 12:35 PM EST Gladys Ventura RN accessed port. Pt tolerated well. [facility]12-07-2022 History and physical note* Angelita Ho MD [...] Deep Additional Comments: None Angelita Ho MD [facility] Work Phone: [phone]) [phone] History and physical note* Angelita Ho MD [...] None Angelita Ho MD documented in this encounterGalion Community Hospital12-05-2022 Instructions* Patient Instructions* Becky Becerra PA-C [...] If you do not have a responsible stake driver (family member or friend) withyou to take you home, your exam cannot be done with sedation and will be cancelled. Please bring a list of all of your current medications, including any Gyfx-usd-Nrpqnle medications with you. Medications If you take [...] your exam. 2 04/2019 documented in this encounterGalion Community Hospital12-05-2022 Miscellaneous Notes* Telephone Encounter - Becky Becerra PA-C - 04/06/2022 7:43 AM EST Colonoscopy order placed. Not sure if she would want it for [facility] or [facility]. Order is for [facility] if we could please get her scheduled for this. Thanks! documented in this encounterGalion Community Hospital11-30-2022 History of Present illness Narrative* Becky Becerra PA-C - 04/01/2022 9:06 AM EST CHIEF COMPLAINT: Patient presents with: Severe Abdominal Pain : Constipation- CT at [facility]03/27 in Care Everywhere This consult was requested by No ref. provider found for an opinion regarding severe abdominal pain, constipation. My final recommendations will be communicated to the requesting health care providerby way of the shared medical record for internal providers or letter via the [employer] for external providers. HPI: Doug Flanagan is a 31 year old female who presents for Severe Abdominal Pain (Constipation- CT at [facility]03/27 in Care Everywhere ). 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 I have confirmed and edited as necessary, the PFSH and ROS obtained by others. Becky Becerra PA-C April 01, 2022 9:28 AM documented in this encounterGalion Community Hospital11-25-2022 History of Present illness Narrative* John [...] further evaluation care and imaging. John Ramirez APRN.SUPERVISOR TYPESETTING documented in this encounterGalion Community Hospital10-24-2022 Miscellaneous Notes* Telephone Encounter - Lesly Deras RN - 02/23/2022 10:49 AM EDT Scheduled 04/29 @ 0840 * Telephone Encounter - Karen Gomez RN - 02/23/2022 10:39 AM EDT Left message for patient to call office. Karen Gomez RN documented in this encounterGalion Community Hospital08-22-2022 Instructions* Patient Instructions* Louise Soriano APRN.ROLF - 12/22/2021 7:45 PM EDT HEMATURIA What [...] area of the bruise. documented in this encounterGalion Community Hospital08-22-2022 History of Present illness Narrative* Louise Soriano APRN.CNP - 12/22/2021 7:05 PM EDT This note was created using [employer]riter. Subjective Doug Flanagan is a 31 year old female. 31 year old female with PMH myasthenia gravis, terminal carman anticoagulant usage, and epilepsy presentsfor left rib [...] history is provided by the patient. No assistant speech language pathologist was used. Musculoskeletal Problem This is a [...] 9 years of age Fell off the [place]unes[place] bars; lost consciousness 3-5 minutes PAST SURGICAL HISTORY Procedure Laterality Date APPENDECTOMY CONIZATION OF CERVIX; COLD KNIFE/LASER 10/17/2021 Paragard removal, Mirena IUD insertion HIP SURGERY HX Right INSJ TUNNELED CTR VAD W/SUBQ PORT AGE 5 YR/> 10/16/2020 LEEP PROCEDURE (INSURANCE ADVISER DEPT)_*FL THYMECTOMY, PARTIAL/TOTAL total ALLERGIES Dilantin [Phenytoin], [...] mid flank region with 4 cm irregular [place] like ecchymosis Neurological: General: No focal deficit [...] she follows up with PCP Louise Soriano APRN.ROLF documented in this encounterGalion Community Hospital08-22-2022 History of Present illness Narrative* Alyx [...] 22, 2021 7:02 PM documented in this encounterGalion Community Hospital08-01-2022 Miscellaneous Notes* Telephone Encounter - Maya Puente APRN.CNP - 12/01/2021 7:09 PM EDT Notified of ultrasound results. Neg for dvt, pos for thrombophlebitis. warm compresses and nsaids discussed(if she is permitted to take). Elevate at night. Will start atb. F/u with pcp for continued s/s. Urgent f/u for worsening s/s. documented in this encounterGalion Community Hospital08-01-2022 Miscellaneous Notes* Telephone Encounter - Colette Mtz LPN - 12/01/2021 3:15 PM EDT The ultrasound order is incorrect for [facility]. They do not have a vascular lab and so order needs written for radiology only. Patient's appointment is at 4pm. documented in this encounterGalion Community Hospital08-01-2022 History of Present illness Narrative* Maya [...] 9 years of age Fell off the Curves; lost consciousness 3-5 minutes PAST SURGICAL HISTORY Procedure Laterality Date APPENDECTOMY CONIZATION OF CERVIX; COLD KNIFE/LASER 10/17/2021 Paragard removal, Mirena IUD insertion HIP SURGERY HX Right INSJ TUNNELED CTR VAD W/SUBQ PORT AGE 5 YR/> 10/16/2020 LEEP PROCEDURE (INSURANCE ADVISER DEPT)_*FL THYMECTOMY, PARTIAL/TOTAL total ALLERGIES Dilantin [Phenytoin], [...] MG TABLET Agrees to plan Maya Puente APRN.SUPERVISOR TYPESETTING documented in this encounterGalion Community Hospital06-22-2022 Miscellaneous Notes* Telephone Encounter - Sarah [...] a virtual visit instead? documented in this encounterGalion Community Hospital06-16-2022 Miscellaneous Notes* Telephone Encounter - Sarah Pop MD - 10/16/2021 11:29 AM EDT Noted thank you * Telephone Encounter - Lesly Deras RN - 10/16/2021 10:23 AM EDT Patient called to give SW an update regarding her Eliquis. She spoke with her PCP office. Her PCP retired and so she does not officially have a PCP. She has made their office, neurologist, [facility], and now our office that she stopped her Eliquis on Saturday 10/14 for her upcoming surgery on Wednesday, 10/17. GEORGINA Deras RN documented in this encounterGalion Community Hospital06-01-2022 History and physical note * Sarah Pop MD - 10/01/2021 10:28 AM EDT DATE OF SERVICE: October 01, 2021 PROBLEM: CIN2, positive ECC DIAGNOSIS: CIN2, positive ECC PAST SURGICAL HISTORY: PAST SURGICAL HISTORY Procedure Laterality Date APPENDECTOMY HIP SURGERY HX Right INSJ TUNNELED CTR VAD W/SUBQ PORT AGE 5 YR/> 10/16/2020 LEEP PROCEDURE (INSURANCE ADVISER DEPT)_*FL THYMECTOMY, PARTIAL/TOTAL total PAST MEDICAL HISTORY: [...] Level: 4 - Moderate documented in this encounterGalion Community Hospital05-02-2022 History of Present illness Narrative* Sarah [...] born at term, was difficult r/t epilepsy 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 LMP: 08/05/2021, IUD Age at Menarche: Age at First : Age at Menopause: 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 Comments: Sexual Activity: Never; No partner [...] 9 years of age Fell off the [place] bars; lost consciousness 3-5 minutes PAST SURGICAL HISTORY Procedure Laterality Date APPENDECTOMY HIP SURGERY HX Right INSJ TUNNELED CTR VAD W/SUBQ PORT AGE 3 YR/> 10/16/2020 LEEP PROCEDURE (INSURANCE ADVISER DEPT)_*FL THYMECTOMY, PARTIAL/TOTAL total FAMILY HISTORY Problem [...] Level: 4 - Moderate documented in this encounterGalion Community Hospital04-27-2022 Miscellaneous Notes* Telephone Encounter - Sarah [...] 11:38 AM EDT ----- Message from Sarah Ppo MD sent at 08/27/2021 11:16 AM EDT ----- Please notify pt of high grade dysplasia. Recommend [facility] in OR. Will work on scheduling a pre op to discuss further and surgery if she is ok with this documented in this encounterGalion Community Hospital04-20-2022 History of Present illness Narrative* Sarah [...] patient. Sarah Pop DO documented in this encounterGalion Community Hospital04-15-2022 Miscellaneous Notes* Telephone Encounter - Catie [...] 7:44 AM EDT Left voicemail for Doug ([phone]) to please be evaluated at the emergency room as soon as possible. Also sent a response to her [employer] message advising the same. Catie Martinez RN documented in this encounterGalion Community Hospital04-13-2022 Miscellaneous Notes* Telephone Encounter - Sarah [...] removed at Colposcopy appointment? documented in this encounterGalion Community Hospital03-24-2022 History of Present illness Narrative* Louise [...] which included preparing to see the patient, coal-uo-tebi patient care, completing clinical documentation, obtaining and/or reviewing separately obtained history, performing a medically appropriate examination, counseling and educating the pat ient/family/caregiver and ordering medications, tests, or procedures. documented in this encounterGalion Community Hospital09-15-2014 History of Past illness Narrative* Problem Noted Date Resolved Date 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 documented as of this encounter (statuses as of 08/04/2021) [facility] of Past illness Narrative* Problem Noted Date Resolved Date 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 documented as of this encounter (statuses as of 2021) [facility] of Past illness Narrative* Problem Noted Date Resolved Date 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 documented as of this encounter (statuses as of 08/15/2021) [address]15-2014 History of Past illness Narrative* Problem Noted Date Resolved Date 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 documented as of this encounter (statuses as of 08/20/2021) [address]15-2014 History of Past illness Narrative* Problem Noted Date Resolved Date 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 documented as of this encounter (statuses as of 08/27/2021) [address]15-2014 History of Past illness Narrative* Problem Noted Date Resolved Date 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 documented as of this encounter (statuses as of 09/01/2021) [address]15-2014 History of Past illness Narrative* Problem Noted Date Resolved Date 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 documented as of this encounter (statuses as of 09/01/2021) [address]15-2014 History of Past illness Narrative* Problem Noted Date Resolved Date 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 documented as of this encounter (statuses as of 09/02/2021) [address]15-2014 History of Past illness Narrative* Problem Noted Date Resolved Date 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 documented as of this encounter (statuses as of 10/03/2021) [address]15-2014 History of Past illness Narrative* Problem Noted Date Resolved Date 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 documented as of this encounter (statuses as of 10/16/2021) [address]15-2014 History of Past illness Narrative* Problem Noted Date Resolved Date 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 documented as of this encounter (statuses as of 10/22/2021) [address]-2014 History of Past illness Narrative* Problem Noted Date Resolved Date 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 documented as of this encounter (statuses as of 12/01/2021) [address]2014 History of Past illness Narrative* Problem Noted Date Resolved Date 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 documented as of this encounter (statuses as of 12/01/2021) [address]2014 History of Past illness Narrative* Problem Noted Date Resolved Date 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 documented as of this encounter (statuses as of 12/23/2021) [address]2014 History of Past illness Narrative* Problem Noted Date Resolved Date 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 documented as of this encounter (statuses as of 12/24/2021) [address]2014 History of Past illness Narrative* Problem Noted Date Resolved Date 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 documented as of this encounter (statuses as of 02/23/2022) [address]2014 History of Past illness Narrative* Problem Noted Date Resolved Date 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 documented as of this encounter (statuses as of 03/27/2022) [address]2014 History of Past illness Narrative* Problem Noted Date Resolved Date 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 documented as of this encounter (statuses as of 04/01/2022) [address]2014 History of Past illness Narrative* Problem Noted Date Resolved Date 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 documented as of this encounter (statuses as of 04/06/2022) [address]2014 History of Past illness Narrative* Problem Noted Date Resolved Date 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 documented as of this encounter (statuses as of 04/06/2022) [address]2014 History of Past illness Narrative* Problem Noted Date Resolved Date 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 documented as of this encounter (statuses as of 05/05/2022) [address]2014 History of Past illness Narrative* Problem Noted Date Resolved Date 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 documented as of this encounter (statuses as of 07/12/2022) [address]2014 History of Past illness Narrative* Problem Noted Date Resolved Date 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 documented as of this encounter (statuses as of 07/17/2022) [facility] note* Diagnosis Pelvic pain in female- Primary Unspecified symptom associated with female genital organs Encounter for IUD removal Encounter for removal of intrauterine contraceptive device Acute cystitis with hematuria Acute cystitis PID (acute pelvic inflammatory disease) Acute parametritis and pelvic cellulitis [facility]No assessment information availableW[facility] Work Phone: evaluation note* Diagnosis ASCUS with positive high risk HPV cervical- Primary Cervical high risk human papillomavirus (HPV) DNA test positive [facility]* Diagnosis LLOYD II (cervical intraepithelial neoplasia II)- Primary Moderate dysplasia of cervix Cervical high risk human papillomavirus (HPV) DNA test positive Pelvic pain in female Unspecified symptom associated with female genital organs DUB (dysfunctional uterine bleeding) Other disorder of menstruation and other abnormal bleeding from female genital tract IUD (intrauterine device) in place Presence of intrauterine contraceptive device [facility]* Diagnosis Pre-op exam- Primary Preoperative examination, unspecified 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 [facility]* Diagnosis Onset Date Resolution Status LLOYD II (cervical intraepithelial neoplasia II) [facility] Work Phone: evaluation note* Diagnosis Acute pain of left lower extremity- Primary Leg abrasion, left, initial encounter documented [facility] this [facility]* Diagnosis Rib pain- Primary Chest pain, unspecified Injury of abdomen, initial encounter Microscopic hematuria [facility]* Diagnosis Procedure not carried out- Primary Procedure not carried out for other reasons [facility]* Diagnosis Acute constipation- Primary Unspecified constipation Generalized abdominal pain Abdominal pain, generalized [facility] Diagnosis Generalized abdominal pain- Primary Abdominal pain, generalized Change in bowel habits Other symptoms involving digestive system [facility]* Diagnosis LLOYD II (cervical intraepithelial neoplasia II)- Primary Moderate dysplasia of cervix Cervical high risk human papillomavirus (HPV) DNA test positive Cervical cancer screening Screening for malignant neoplasm of the cervix Special screening examination for human papillomavirus (HPV) History of cervical dysplasia Personal history of cervical dysplasia documented in this encounter [facility] note* Diagnosis URI, acute- Primary Acute upper respiratory infections of unspecified site documented in this encounter [facility] note* Diagnosis Flank pain- Primary Abdominal pain, unspecified site documented in this encounter [facility] note* Diagnosis MG (myasthenia gravis) (HCC) Myasthenia gravis without exacerbation Myasthenia gravis with (acute) exacerbation (HCC) documented in this encounter [facility] note* Diagnosis Myasthenic crisis (HCC)- Primary Other specified myoneural disorders Myasthenic crisis (HCC) Other specified myoneural disorders 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 depressed mood documented in this encounter [facility] note* Diagnosis Myasthenia gravis- Primary Myasthenia gravis without exacerbation Medication management Encounter for other specified aftercare [facility] Diagnosis Myasthenia gravis- Primary Myasthenia gravis without exacerbation Breakthrough seizure Unspecified epilepsy with intractable epilepsy Seizures Other convulsions Breakthrough seizure Unspecified epilepsy with intractable epilepsy [facility] Diagnosis Myasthenia gravis- Primary Myasthenia gravis without exacerbation Breakthrough seizure Unspecified epilepsy with intractable epilepsy Seizures Other convulsions Breakthrough seizure Unspecified epilepsy with intractable epilepsy [facility] Diagnosis Breakthrough seizure Unspecified epilepsy with intractable epilepsy [facility] Diagnosis MG (myasthenia gravis)- Primary Myasthenia gravis without exacerbation [facility] in [facility] Diagnosis MG (myasthenia gravis)- Primary Myasthenia gravis without exacerbation [facility] in [facility] Diagnosis MG (myasthenia gravis)- Primary Myasthenia gravis without exacerbation [facility]* Diagnosis Localization-related (focal) (partial) idiopathic epilepsy and epileptic syndromes with seizures of localized onset, intractable, without status epilepticus- Primary [facility]* Diagnosis Sore throat- Primary Acute pharyngitis Otalgia of right ear Otalgia, unspecified [facility] Diagnosis Acute constipation Unspecified constipation Generalized abdominal pain Abdominal pain, generalized [facility]* Diagnosis Generalized abdominal pain Abdominal pain, generalized Change in bowel habits Other symptoms involving digestive system [facility]* Diagnosis Rib pain Chest pain, unspecified [facility]* Diagnosis Localization-related (focal) (partial) idiopathic epilepsy and epileptic syndromes with seizures of localized onset, intractable, without status epilepticus [facility] instructionsW[facility] Work Phone: Hospital Discharge instructions* Attachments The following attachments cannot be sent through Care Everywhere. * Central Line Catheter Discharge Instructions ([place]) [facility] Additional Instructions Labs stable urine negative for infection. Continue your seizure medications. Call Dr. Gilmore's office on Wednesday and keep your scheduled follow-up appointment. Return if worsening symptoms.[facility] Work Phone: Hospital Discharge instructionsAmbulatory Orders* Nutrition Referral Location: None Selected [facility] Work Phone: Instructions* Name Dates Details How [...] Informa tion Online using Patient Portal and [employer] Apps Indication:Internal jugular vein thrombosis, right Start:12-Nov-2020 [...] tion Online using Patient Portal and [employer] Apps Indication:Internal jugular vein thrombosis, right Start:12-Nov-2020 [...] tion Online using Patient Portal and [employer] Apps Indication:BMI 28.0-28.9,adult Start:24-Dec-2020 Instruction Type:Patient Education Patient Instructions Indication:Internal jugular vein thrombosis, right Start:12-Nov-2020 Instruction Type:Provider Instructions for Treatment How to Access Health Informa tion Online using Patient Portal and [employer] Apps Indication:Internal jugular vein thrombosis, right Start:12-Nov-2020 [...] tion Online using Patient Portal and [employer] Apps Indication:BMI 28.0-28.9,adult Start:24-Dec-2020 Instruction Type:Patient Education Patient Instructions Indication:Internal jugular vein thrombosis, right Start:12-Nov-2020 Instruction Type:Provider Instructions for Treatment How to Access Health Informa tion Online using Patient Portal and [employer] Apps Indication:Internal jugular vein thrombosis, right Start:12-Nov-2020 [...] tion Online using Patient Portal and [employer] Apps Indication:BMI 28.0-28.9,adult Start:24-Dec-2020 Instruction Type:Patient Education Patient Instructions Indication:Internal jugular vein thrombosis, right Start:12-Nov-2020 Instruction Type:Provider Instructions for Treatment How to Access Health Informa tion Online using Patient Portal and [employer] Apps Indication:Internal jugular vein thrombosis, right Start:12-Nov-2020 [...] tion Online using Patient Portal and [employer] Apps Indication:BMI 28.0-28.9,adult Start:24-Dec-2020 Instruction Type:Patient Education Patient Instructions Indication:Internal jugular vein thrombosis, right Start:12-Nov-2020 Instruction Type:Provider Instructions for Treatment How to Access Health Informa tion Online using Patient Portal and [employer] Apps Indication:Internal jugular vein thrombosis, right Start:12-Nov-2020 [...] tion Online using Patient Portal and [employer] Apps Indication:BMI 28.0-28.9,adult Start:24-Dec-2020 Instruction Type:Patient Education Patient Instructions Indication:Internal jugular vein thrombosis, right Start:12-Nov-2020 Instruction Type:Provider Instructions for Treatment How to Access Health Informa tion Online using Patient Portal and [employer] Apps Indication:Internal jugular vein thrombosis, right Start:12-Nov-2020 [...] tion Online using Patient Portal and [employer] Apps Indication:BMI 28.0-28.9,adult Start:24-Dec-2020 Instruction Type:Patient Education Patient Instructions Indication:Internal jugular vein thrombosis, right Start:12-Nov-2020 Instruction Type:Provider Instructions for Treatment How to Access Health Informa tion Online using Patient Portal and [employer] Apps Indication:Internal jugular vein thrombosis, right Start:12-Nov-2020 [...] tion Online using Patient Portal and [employer] Apps Indication:BMI 28.0-28.9,adult Start:24-Dec-2020 Instruction Type:Patient Education Patient Instructions Indication:Internal jugular vein thrombosis, right Start:12-Nov-2020 Instruction Type:Provider Instructions for Treatment How to Access Health Informa tion Online using Patient Portal and [employer] Apps Indication:Internal jugular vein thrombosis, right Start:12-Nov-2020 [...] tion Online using Patient Portal and [employer] Apps Indication:BMI 28.0-28.9,adult Start:24-Dec-2020 Instruction Type:Patient Education Patient Instructions Indication:Internal jugular vein thrombosis, right Start:12-Nov-2020 Instruction Type:Provider Instructions for Treatment How to Access Health Informa tion Online using Patient Portal and [employer] Apps Indication:Internal jugular vein thrombosis, right Start:12-Nov-2020 [...] Work Phone: progress note Author Katie Mayo [facility] Note Date/Time September 14, 2024 8:33a m [facility] [address] [place] [address] OFFICE VISIT Date of Service: 09/14/24 MR#: [id number] Acct: [id number] Name: DOUG FLANAGAN Rep #: [id number] : 1990 Provider: BRANDON Dunaway Age/Sex: 34/F Location: [facility] Status: Signed Intake Vital Signs 07/26/24 14:04 [...] prune ex to relieve constipation as needed. [facility] Medical History Encounter to establish care Chronic [...] up; celiac wnl, food allergen wnl OV 09.14.24; Pt continues to have constipation. She tried [...] Cosigner Signature: Date (if applicable) CC: ~ [facility] [employer] [facility] Work Phone: Reason for referral (narrative)* Outpatient Procedure (Routine) - Pending Review Specialty Diagnoses / Procedures Referred By Arnaud rosario [facility] Diagnoses Encounter for IUD removal Pelvic pain in female Procedures INSERT INTRAUTERINE DEVICE LEVONORGESTREL IU 52MG 5 YR INSERT INTRAUTERINE DEVICE Louise Flanagan APRN.CAROLYNN [address] [address] [facility] [address] [place] [address] Referral ID Status Reason Start Date Expiration Date Visits Requested Visits Authorized [id number] Pending Review Auto-Generat ed Referral 07/24/2021 07/24/2022 1 1 * Outpatient Procedure (Routine) - Pending Review Specialty Diagnoses / Procedures Referred By Arnaud rosario Referred To Contact [facility] Diagnoses Encounter for IUD removal Pelvic pain in female Procedures REMOVE INTRAUTERINE DEVICE REMOVE INTRAUTERINE DEVICE Louise Flanagan APRN.CNM [address] [place] [address] [address] [place] [address] Referral ID Status Reason Start Date Expiration Date Visits Requested Visits Authorized [id number] Pending Review Auto-Generat ed Referral 07/24/2021 07/24/2022 1 1 [facility] for referral (narrative)* Diagnostic Procedure Only (Urgent) - Pending Review Specialty Diagnoses / Procedures Referred By Arnaud rosario Referred To Contact [facility] IMAGING Diagnoses Acute pain of left lower extremity Procedures US DVT LOWER LT DUP-SCAN XTR VEINS UNILATERAL/LIMITED STUDY Maya Puente APRN.[employer] [address] [place] [address] [facility] Referral ID Status Reason Start Date Expiration Date Visits Requested Visits Authorized [id number] Pending Review Auto-Generat ed Referral 12/01/2021 12/31/2022 1 1 * Diagnostic Procedure Only (Urgent) - Closed Specialty Diagnoses / Procedures Referred By Arnaud rosario Referred To Contact XR IMAGING Diagnoses Acute pain of left lower extremity Procedures XR TIBIA FIBULA 2V AP/LAT LEFT RADIOLOGIC EXAMINATION TIBIA & FIBULA 2 VIEWS Maya Puente APRN.[employer] [address] [place] [address] [facility] Referral ID Status Reason Start Date Expiration Date V isits Requested Visits Authorized [id number] Closed Auto-Generate d Referral 12/01/2021 12/31/2022 1 1 * Diagnostic Procedure Only (Urgent) - Closed Specialty Diagnoses / Procedures Referred By Contac t Referred To Contact XR IMAGING Diagnoses Acute pain of left lower extremity Procedures XR FOOT GENERAL 3V AP/LAT/OBL LEFT RADEX FOOT COMPLETE MINIMUM 3 VIEWS Maya Puente APRN.[employer] [address] [place] [address] [facility] Referral ID Status Reason Start Date Expiration Date V isits Requested Visits Authorized [id number] Closed Auto-Generate d Referral 12/01/2021 12/31/2022 1 1 [facility] for referral (narrative)* Diagnostic Procedure Only (Urgent) - Closed Specialty Diagnoses / Procedures Referred By Contac t Referred To Contact XR IMAGING Diagnoses Rib pain Procedures XR RIBS/CHEST 3V AP RIB/OBLS/CXR LEFT RADEX RIBS UNI W/POSTEROANT CH MINIMUM 3 VIEWS Louise Soriano APRN.[employer] [address] [place] [address] X[facility] Imaging Referral ID Status Reason Start Date Expiration Date V isits Requested Visits Authorized [id number] Closed Auto-Generate d Referral 12/22/2021 01/21/2023 1 1 [facility] for referral (narrative)* Diagnostic Procedure Only (Urgent) - Closed Specialty Diagnoses / Procedures Referred By Contac t Referred To Contact XR IMAGING Diagnoses Acute constipation Generalized abdominal pain Procedures XR ABDOMEN 2V ROUTINE SUPINE W UPRIGHT/DECUB/CTL RADIOLOGIC EXAM ABDOMEN 2 VIEWS Becyk Becerra PA-C [address] [place] [address] X[facility] Imaging Referral ID Status Reason Start Date Expiration Date V isits Requested Visits Authorized [id number] Closed Auto-Generate d Referral 04/01/2022 05/01/2023 1 1 [facility] for referral (narrative)* Outpatient Procedure (Routine) - Authorized Specialty Diagnoses / Procedures Referred By Contac t Referred To Contact [facility] Diagnoses Generalized abdominal pain Change in bowel habits Procedures COLONOSCOPY DIAGNOSTIC COLONOSCOPY FLX DX W/COLLJ SPEC WHEN PFRMD Becky Becerra PA-C [address] [place] [address] [facility] [address] [place] [address] Referral ID Status Reason Start Date Expiration Date Visits Requested Visits Authorized [id number] Authorized Auto-Generat ed Referral 04/06/2022 04/06/2023 1 1 [facility] for referral (narrative)* Outpatient Procedure (Routine) - Pending Review Specialty Diagnoses / Procedures Referred By Contac t Referred To Contact [facility] Diagnoses LLOYD II (cervical intraepithelial neoplasia II) Cervical high risk human papillomavirus (HPV) DNA test positive Procedures COLPOSCOPY COLPOSCOPY CERVIX BX CERVIX & ENDOCRV CURRETAGE Sarah Pop MD [address] [place] [address] [facility] [address] [place] [id number] Referral ID Status Reason Start Date Expiration Date Visits Requested Visits Authorized [id number] Pending Review Auto-Generat ed Referral 2 04/29/2023 1 1 [facility] for referral (narrative)* Consultation (Routine) - Pending Review Specialty Diagnoses / Procedures Referred By Contac t Referred To Contact Neurology Diagnoses Breakthrough seizure Merrick Lopez MD [address] [place] [phone] Referral ID Status Reason Start Date Expiration Date V isits Requested Visits Authorized [id number] Pending Review 11/02/2022 11/27/2023 1 1 * Transfer of Care (Routine) - Pending Review Specialty Diagnoses / Procedures Referred By Contbenjamín rosario Referred To Contact Occupational Therapy Diagnoses Myasthenia gravis Adolfo Flores MD [address] [place] [address] Referral ID Status Reason Start Date Expiration Date V isits Requested Visits Authorized [id number] Pending Review 11/02/2022 11/27/2023 1 1 Scheduling Instructions [facility] [address] [facility], 2nd [place] [address] FAX Outpatient Rehabilitation Outpatient [facility] [place] [address] [facility][[address]], [address] [place] [address] FAX [facility] [address] [address] FAX [facility] ([facility] Hand [facility]) [address] [facility], [address] [facility] [address] FAX [facility] [address] [place] [address] FAX Outpatient Rehabilitation Outpatient Care [address] [place] [address] FAX * Adjunctive Therapy (Routine) - Pending Review Specialty Diagnoses / Procedures Referred By Arnaud rosario Referred To Contact Physical Therapy Diagnoses Myasthenia gravis Adolfo Flores MD [address] [place] [address] Referral ID Status Reason Start Date Expiration Date V isits Requested Visits Authorized [id number] Pending Review 11/02/2022 11/27/2023 1 1 Scheduling Instructions [facility] [address] [facility], 2nd [place] [address] ) [phone] Fax [facility] (Neck and Back Therapy) [address] [place], [place] [address] FAX [facility] [address] [place] [address] ) [phone] FAX Outpatient Rehabilitation Outpatient [facility] [place] [address] [facility] [address] [place] [address] ) [phone] FAX [facility] [address] [place] [address] FAX Physical Therapy at [facility] [address] [place], [place] [address] [phone] FAX [facility] [address] [place], [place] [address] [phone] FAX Continued on next page Outpatient Rehabilitation Outpatient Care [address] [place] [address] FAX [facility] [address] [facility]], [address] [place] [address] FAX * Consultation (Routine) - Pending Review Specialty Diagnoses / Procedures Referred By Arnaud t Referred To Contact Neurology Diagnoses Myasthenia gravis Adolof Flores MD [address] [place] [address] Referral ID Status Reason Start Date Expiration Date V isits Requested Visits Authorized [id number] Pending Review 11/02/2022 11/27/2023 1 1 * (Routine) - Pending Review Specialty Diagnoses / Procedures Referred By Contac t Referred To Contact Procedures DVT/VTE RISK ASSESSMENT Nancy Faith MD [address] [place] [address] Referral ID Status Reason Start Date Expiration Date V isits Requested Visits Authorized [id number] Pending Review 10/29/2022 11/23/2023 1 1 [facility] Diagnostic Procedure Only (Urgent) - Closed Specialty Diagnoses / Procedures Referred By Contac t Referred To Contact XR IMAGING Diagnoses Acute constipation Generalized abdominal pain Procedures XR ABDOMEN 2V ROUTINE SUPINE W UPRIGHT/DECUB/CTL RADIOLOGIC EXAM ABDOMEN 2 VIEWS Becky Lubin PA-C [address] [place] [address] [place] [address] Referral ID Status Reason Start Date Expiration Date V isits Requested Visits Authorized [id number] Closed Auto-Generate d Referral 04/01/2022 05/01/2023 1 1 [facility] for referral (narrative)* Outpatient Procedure (Routine) - Closed Specialty Diagnoses / Procedures Referred By Contac t Referred To Contact [facility] Diagnoses Generalized abdominal pain Change in bowel habits Procedures COLONOSCOPY DIAGNOSTIC COLONOSCOPY FLX DX W/COLLJ SPEC WHEN PFRMD Becky Lubin PA-C [address] [place] [address] [facility] [address] [place] [address] Referral ID Status Reason Start Date Expiration Date V isits Requested Visits Authorized [id number] Closed Auto-Generate d Referral 04/06/2022 04/06/2023 1 1 [facility] for referral (narrative)* Diagnostic Procedure Only (Urgent) - Closed Specialty Diagnoses / Procedures Referred By Contac t Referred To Contact XR IMAGING Diagnoses Rib pain Procedures XR RIBS/CHEST 3V AP RIB/OBLS/CXR LEFT RADEX RIBS UNI W/POSTEROANT CH MINIMUM 3 VIEWS Louise Soriano APRN.CNP [address] [place] [address] [place] [address] Referral ID Status Reason Start Date Expiration Date V isits Requested Visits Authorized [id number] Closed Auto-Generate d Referral 12/22/2021 01/21/2023 1 1 [facility] for referral (narrative)No reason for referral information [facility] Phone: Reason for visit Narrative* Diagnostic Procedure Only (Urgent) - Closed Specialty Diagnoses / Procedures Referred By Contac t Referred To Contact XR IMAGING Diagnoses Acute constipation Generalized abdominal pain Procedures XR ABDOMEN 2V ROUTINE SUPINE W UPRIGHT/DECUB/CTL RADIOLOGIC EXAM ABDOMEN 2 VIEWS Becky Lubin PA-C [address] [place] [address] [place] [address] Referral ID Status Reason Start Date Expiration Date V isits Requested Visits Authorized [id number] Closed Auto-Generate d Referral 04/01/2022 05/01/2023 1 1 [facility] for visit Narrative* Outpatient Procedure (Routine) - Closed Specialty Diagnoses / Procedures Referred By Contac t Referred To Contact [facility] Diagnoses Generalized abdominal pain Change in bowel habits Procedures COLONOSCOPY DIAGNOSTIC COLONOSCOPY FLX DX W/COLLJ SPEC WHEN PFRMD Becky Lubni PA-C [address] [place] [address] [facility] [address] [place] [address] Referral ID Status Reason Start Date Expiration Date V isits Requested Visits Authorized [id number] Closed Auto-Generate d Referral 04/06/2022 04/06/2023 1 1 [facility] for visit Narrative* Diagnostic Procedure Only (Urgent) - Closed Specialty Diagnoses / Procedures Referred By Contac t Referred To Contact XR IMAGING Diagnoses Rib pain Procedures XR RIBS/CHEST 3V AP RIB/OBLS/CXR LEFT RADEX RIBS UNI W/POSTEROANT CH MINIMUM 3 VIEWS Louise Soriano, MACHINERY MOVER.SUPERVISOR TYPESETTING [address] [place] [address] [place] [address] Referral ID Status Reason Start Date Expiration Date V isits Requested Visits Authorized [id number] Closed Auto-Generate d Referral 12/22/2021 01/21/2023 1 1 [facility] for visit Narrative* Diagnostic Procedure Only (Urgent) - Closed Specialty Diagnoses / Procedures Referred By Contac t Referred To Contact XR IMAGING Diagnoses Acute pain of left lower extremity Procedures XR TIBIA FIBULA 2V AP/LAT LEFT RADIOLOGIC EXAMINATION TIBIA & FIBULA 2 VIEWS Maya Puente MACHINERY MOVER.SUPERVISOR TYPESETTING [address] [place] [address] [place] [address] Referral ID Status Reason Start Date Expiration Date V isits Requested Visits Authorized [id number] Closed Auto-Generate d Referral 12/01/2021 12/31/2022 1 1 [facility] Summary Purpose Family History No Family History Records Found Relationship Condition Age at Onset Recorded Date/T [...] Malignant neoplasm of cervix Unknown Advance Directives No Advanced Directives Records FoundDocuments on File Type Date Recorded 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 Expiration date unspecified Effective:28-Apr-2019 Name Dates Details Immunization Registry [place] - Effective on 04/28/2019. Expiration date unspecified Effective:28-Apr-2019 Name Dates Details Immunization Registry [place] - Effective on 04/28/2019. Expiration date unspecified Effective:28-Apr-2019 Name Dates Details Immunization Registry [place] - Effective on 04/28/2019. Expiration date unspecified Effective:28-Apr-2019 Name Dates Details Immunization Registry [place] - Effective on 04/28/2019. Expiration date unspecified Effective:28-Apr-2019 Name Dates Details Immunization Registry [place] - Effective on 04/28/2019. Expiration date unspecified Effective:28-Apr-2019 Advance Directive Response Recorded Date/ Time Advance Directives No February 22, 2015 1:10am Living Will No February 17 10:03pm Power of Laundry Helper No February 17, 2021 10:03pm Advance Directive Response Recorded Date/ Time Advance Directives No February 22, 2015 1:10am Living Will No August 15, 2021 11:17am Power of Laundry Helper No August 15 11:17am Name Dates Details Immunization Registry [place] - Effective on 04/28/2019. Expiration date unspecified Effective:28-Apr-2019 Advance Directive Response Recorded Date/ Time Advance Directives No February 22, 2015 1:10am Living Will No October 09, 2021 2 :05pm Power of Laundry Helper No October 09, 2021 2:05pm Advance Directive Response Recorded Date/ Time Advance Directives No February 22, 2015 1:10am Living Will No February 05 3:46pm Power of Laundry Helper No February 05 3:46pm Advance Directive Response Recorded Date/ Time Advance Directives No February 22, 2015 12:10am Living Will No March 27, 022 9:24am Power of Laundry Helper No March 27, 2022 9:24am Name Dates Details Immunization Registry [place] - Effective on 04/28/2019. Expiration date unspecified Effective:28-Apr-2019 Advance Directive Response Recorded Date/ Time Advance Directives No February 22, 2015 12:10am Living Will No May 27 12:27pm Power of Laundry Helper No May 27, 2022 12:27pm Advance Directive Response Recorded Date/ Time Advance Directives No February 22, 2015 1:10am Living Will No July 17, 2022 5:18pm Power of Laundry Helper No July 17 5:18pm Latest Code Status [...] No August 08, 2022 11:03am Power of Laundry Helper No August 08 11:03am Advance Directive Response Recorded Date/ Time Advance Directives No February 22, 2015 1:10am Living Will No September 07, 2022 2: 38pm Power of Laundry Helper No September 07, 2022 2:38pm Advance Directive Response Recorded Date/ Time Advance Directives No February 22, 2015 1:10am Living Will No October 29, 2022 11:16am Power of Laundry Helper No October 29 11:16am Latest Code Status [...] Do you have a Healthcare Power of Laundry Helper? No August 18, 2024 12:33pm Advance Directives No February 22, 2015 1:10am Advance Directive Response Recorded Date/ Time Do you have a Healthcare Power of Laundry Helper? No October 06, 2024 1:45pm Living Will No August 18, 2024 12:33pm Do you have a Healthcare Power of Laundry Helper? No August 18, 2024 12:33pm Advance Directives No February 22, 2015 1:10am Advance Directive Response Recorded Date/ Time Advance Directives No October 11 8:58am Do you have a Healthcare Power of Laundry Helper? No October 06, 2024 1:45pm Living Will No August 18, 2024 12:33pm Do you have a Healthcare Power of Laundry Helper? No August 18, 2024 12:33pm Advance Directive Response Recorded Date/ Time Advance Directives No October 11 8:58am Do you have a Healthcare Power of Laundry Helper? No October 06, 2024 1:45pm Do you have a Healthcare Power of Laundry Helper? No November 04, 2024 2:08pm Living Will No August 18, 2024 12:33pm Do you have a Healthcare Power of Laundry Helper? No August 18, 2024 12:33pm Advance Directive Response Recorded Date/ Time Advance Directives No October 11 8:58am Do you have a Healthcare Power of Laundry Helper? No October 06, 2024 1:45pm Do you have a Healthcare Power of Laundry Helper? No November 04, 2024 2:08pm Advance Directive Response Recorded Date/ Time Advance Directives No October 11 8:58am Do you have a Healthcare Power of Laundry Helper? No October 06, 2024 1:45pm Do you have a Healthcare Power of Laundry Helper? No November 04, 2024 2:08pm Do you have a Healthcare Power of Laundry Helper? No January 27, 2025 2:20pm Advance Directive Response Recorded Date/ Time Advance Directives No October 11 8:58am Do you have a Healthcare Power of Laundry Helper? No November 04, 2024 2:08pm Do you have a Healthcare Power of Laundry Helper? No January 27, 2025 2:20pm Date Activated Date Inactivated Comments 10/30/2022 12:16 AM Instructions Name Dates Details Non-smoker : How [...] Discharging Nurse: [facility] Unit/Room[facility] 1323/1323B Discharging Unit Emergency Contact: Extended Emergency Contact Information Primary Emergency Contact: Genny Flanagan [facility] Relation: Parent Secondary Emergency Contact: Karen Flanagan [facility] Relation: Parent Past Surgical History: Past Surgical History: Procedure Laterality Date APPENDECTOMY 2006 HIP ARTHROSCOPY Right 2012 OTHER SURGICAL HISTORY Right 07/22/2018 THORACIS RESECTION, THYMIC TISSUE, ANT MEDIASTINAL THYMECTOMY Immunization History: There is no immunization history on file for this patient. Active Problems: Patient Active Problem List Diagnosis Code MG (myasthenia gravis) ([facility]) G70.00 S/P thymectomy Z90.89 Seizures ([facility]) R56.9 Isolation/Infection: Isolation No Isolation Patient Infection [...] MENTAL STATUS:} IV Access: { [place] IV ACCESS:819778659} Nursing Mobility/ADLs: Walking {CHP DME ADLs:351756856} Transfer {CHP DME ADLs:519960732} Bathing {CHP DME ADLs:922039249} Dressing {CHP DME ADLs:968511647} Toileting {CHP DME ADLs:942599052} Feeding {CHP DME ADLs:173635003} Powder Worker Tnt {CHP DME ADLs:328498444} Med Delivery { [place] MED Delivery:455190737} Wound Care Documentation and Therapy: Elimination: Continence: Bowel: {YES / NO:} Bladder: {YES / NO:} Urinary Catheter: {Urinary Catheter:187154317} Colostomy/Ileostomy/Ileal Conduit: {YES / NO:} Date of Last BM: Intake/Output Summary (Last 24 hours) at 10/08/2019 1037 Last data filed at 10/07/2019 1449 Gross per 24 hour Intake 240 ml Output Net 240 ml I/O last 3 completed shifts: In: 480 [P.O.:480] Out: - Safety Concerns: { [place] Safety Concerns:519220396} Impairments/Disabilities: {[facility] Impairments/Disabilities:374511111} Nutrition Therapy: Current Nutrition Therapy: { [place] Diet List:270372738} Routes of Feeding: {P DME Other Feedings:570679046} Liquids: {Security Patrol Officer liquid thickness:15653} Daily Fluid Restriction: {P DME Yes amt example:380567961} Last Modified Barium Swallow with Video (Video Swallowing Test): {Done Not Done Date:} Treatments at the Time of Hospital Discharge: Respiratory Treatments: Oxygen Therapy: {Therapy; copd oxygen:62297} Ventilator: {[facility] Vent List:716932011} Rehab Therapies: {THERAPEUTIC INTERVENTION:2119294009} Weight Bearing Status/Restrictions: {[facility] Weight Bearin} Other Medical Equipment (for information only, NOT a DME order): {EQUIPMENT:059562119} Other Treatments: Patient's personal belongings (please select all that are sent with patient): {P DME Belongings:070194299} RN SIGNATURE: {Esignature:019056731} CASE MANAGEMENT/SOCIAL WORK SECTION Inpatient Status Date: Readmission Risk Assessment Score: Readmission Risk Risk of Unplanned Readmission: 4 Discharging to Facility/ Agency Name: Address: Phone: Fax: Dialysis Facility (if applicable) Name: Address: Dialysis Schedule: Phone: Fax: Assistant Basketball Coach/Police Cadet signature: {Esignature:168420004} PHYSICIAN SECTION Prognosis: {Prognosis:4191275639} Condition at Discharge: {[facility] Patient Condition:261930140} Rehab Potential (if transferring to Rehab): {Prognosis:7214311760} Recommended Labs or Other Treatments After Discharge: Physician Certification: I certify the above information and transfer of Doug Flanagan is necessary for the continuing treatment of the diagnosis listed and that she requires {Admit to Appropriate Level of Care:89324} for {GREATER/LESS:065689420} 30 days. Update Admission H&P: {CHP DME Changes in HandP:286152518} PHYSICIAN SIGNATURE: {Esignature:395221332} * Additional Instructions* Meghan Fiore MD - [...] Reason for Visit Chief Complaint FAX RESULTS [phone] Chief Complaint PAIN AT MEDIPORT SIT E [...] INT LAB ORDERS FOR 2 ORDERING DOCTORS [facility] 2024 9:21am Reason for Visit Admit Date [...] INT LAB ORDERS FOR 2 ORDERING DOCTORS [facility] 2024 9:21am Constipation August 16, 2024 7:4 [...] LAB ORDERS FOR 2 ORDERING DOCTORS [facility] 2024 9:21am Constipation August 16, 2024 7:4 [...] LAB ORDERS FOR 2 ORDERING DOCTORS [facility] 2024 9:21am Constipation August 16, 2024 7:4 [...] LAB ORDERS FOR 2 ORDERING DOCTORS [facility] 2024 9:21am Constipation August 16, 2024 7:4 [...] LAB ORDERS FOR 2 ORDERING DOCTORS [facility] 2024 9:21am Constipation August 16, 2024 7:4 4am INT LABS August 16, 2024 8:3 4am seizure August 18, 2024 11: 43am 1 M FU September 14, 2024 7:40a m BLOATING October 03, 2024 10:34 am SEIZURE October 06, 2024 1:38p m ACUTE [facility] FU-RECORDS R EQUESTED [...] INT LAB ORDERS FOR 2 ORDERING DOCTORS [facility] 2024 9:21am Constipation August 16, 2024 7:4 4am INT LABS August 16, 2024 8:3 4am seizure August 18, 2024 11: 43am 1 M FU September 14, 2024 7:40a m BLOATING October 03, 2024 10:34 am SEIZURE October 06, 2024 1:38p m ACUTE [facility] FU-RECORDS R EQUESTED October 13, 2024 2:42pm E-ORDER October 13, 2024 3:51 pm 3 M FU November 02, 2024 2:06p m Chief Complaint Admit Date Epilepsy, unspecified, not intractable, July 18, 2024 8:13am Booked from other vendor July 26 1:27pm INT LAB ORDERS FOR 2 ORDERING DOCTORS [facility] 2024 9:21am Constipation August 16, 2024 7:4 4am INT LABS August 16, 2024 8:3 4am seizure August 18, 2024 11: 43am 1 M FU September 14, 2024 7:40a m BLOATING October 03, 2024 10:34 am SEIZURE October 06, 2024 1:38p m ACUTE [facility] FU-RECORDS R EQUESTED October 13, 2024 2:42pm E-ORDER October 13, 2024 3:51 pm 3 M FU November 02, 2024 2:06p m SEIZURE November 04, 2024 1:51p m Reason for Visit Admit Date Encounter to establish care July 26, 2024 [...] of breath October 13, 2024 2:42 pm Dietary counseling November 02, 2024 2:06p m Pharyngeal damage during airway intubati on November 02, 2024 2:06pm Epilepsy November 02, 2024 2:06p m Gastroparesis November 02, 2024 2:06p m Chief Complaint Admit Date Epilepsy, unspecified, not intractable, July 18, 2024 8:13am Booked from other vendor July 26 1:27pm INT LAB ORDERS FOR 2 ORDERING DOCTORS 2024 9:21am Constipation August 16, 2024 7:4 4am INT LABS August 16, 2024 8:3 4am seizure August 18, 2024 11: 43am 1 M FU September 14, 2024 7:40a m BLOATING October 03, 2024 10:34 am SEIZURE October 06, 2024 1:38p m ACUTE [facility] FU-RECORDS R EQUESTED October 13, 2024 2:42pm E-ORDER October 13, 2024 3:51 pm 3 M FU November 02, 2024 2:06p m SEIZURE November 04, 2024 1:51p m 4 M FU November 07, 2024 8:15a m Chief Complaint Admit Date Constipation August 16, 2024 7:4 4am INT LABS August 16, 2024 8:3 4am seizure August 18, 2024 11: 43am 1 M FU September 14, 2024 7:40a m BLOATING October 03, 2024 10:34 am SEIZURE October 06, 2024 1:38p m ACUTE [facility] FU-RECORDS R EQUESTED October 13, 2024 2:42pm E-ORDER October 13, 2024 3:51 pm 3 M FU November 02, 2024 2:06p m SEIZURE November 04, 2024 1:51p m 4 M FU November 07, 2024 8:15a m E ORDER November 28, 2024 7:32 am Discuss xcopri December 11, 2024 9: 55am Reason for Visit Admit Date Bloating August 16, 2024 7:4 4am Chronic constipation August 16, 2024 7: 44am Bloating September 14, 2024 7:40a m Chronic constipation September 14, 2024 7:40 am Hospital discharge follow-up October 13, 2024 2:42pm Nausea October 13, 2024 2:42 pm Pharyngeal damage during airway intubati on October 13, 2024 2:42pm Shortness of breath October 13, 2024 2:42 pm Dietary counseling November 02, 2024 2:06p m Pharyngeal damage during airway intubati on November 02, 2024 2:06pm Epilepsy November 02, 2024 2:06p m Gastroparesis November 02, 2024 2:06p m Anxiety November 07, 2024 8:15a m Myasthenia gravis November 07, 2024 8:15a m Epilepsy November 07, 2024 8:15a m Epilepsy December 11, 2024 9: 55am Chief Complaint Admit Date 1 M FU September 14, 2024 7:40a m BLOATING October 03, 2024 10:34 am SEIZURE October 06, 2024 1:38p m ACUTE [facility] FU-RECORDS R EQUESTED October 13, 2024 2:42pm E-ORDER October 13, 2024 3:51 pm 3 M FU November 02, 2024 2:06p m SEIZURE November 04, 2024 1:51p m 4 M FU November 07, 2024 8:15a m E ORDER November 28, 2024 7:32 am Discuss xcopri December 11, 2024 9: 55am Reason for Visit Admit Date Bloating September 14, 2024 7:40a m Chronic constipation September 14, 2024 7:40 am Hospital discharge follow-up October 13, 2024 2:42pm Nausea October 13, 2024 2:42 pm Pharyngeal damage during airway intubati on October 13, 2024 2:42pm Shortness of breath October 13, 2024 2:42 pm Dietary counseling November 02, 2024 2:06p m Pharyngeal damage during airway intubati on November 02, 2024 2:06pm Epilepsy November 02, 2024 2:06p m Gastroparesis November 02, 2024 2:06p m Anxiety November 07, 2024 8:15a m Myasthenia gravis November 07, 2024 8:15a m Epilepsy November 07, 2024 8:15a m Anxiety December 11, 2024 9: 55am Myasthenia gravis December 11, 2024 9: 55am Epilepsy December 11, 2024 9: 55am Chief Complaint Admit Date 1 M FU September 14, 2024 7:40a m BLOATING October 03, 2024 10:34 am SEIZURE October 06, 2024 1:38p m ACUTE [facility] FU-RECORDS R EQUESTED October 13, 2024 2:42pm E-ORDER October 13, 2024 3:51 pm 3 M FU November 02, 2024 2:06p m SEIZURE November 04, 2024 1:51p m 4 M FU November 07, 2024 8:15a m E ORDER November 28, 2024 7:32 am Discuss xcopri December 11, 2024 9: 55am lm to reschedule-2 M FU January 11, 2025 1:35pm Chief Complaint Admit Date BLOATING October 03, 2024 10:34 am SEIZURE October 06, 2024 1:38p m ACUTE [facility] FU-RECORDS R EQUESTED October 13, 2024 2:42pm E-ORDER October 13, 2024 3:51 pm 3 M FU November 02, 2024 2:06p m SEIZURE November 04, 2024 1:51p m 4 M FU November 07, 2024 8:15a m E ORDER November 28, 2024 7:32 am Discuss xcopri December 11, 2024 9: 55am lm to reschedule-2 M FU January 11, 2025 1:35pm seizure January 27, 2025 2:08pm Reason for Visit Admit Date Hospital discharge follow-up October 13, 2024 2:42pm Nausea October 13, 2024 2:42 pm Pharyngeal damage during airway intubati on October 13, 2024 2:42pm Shortness of breath October 13, 2024 2:42 pm Dietary counseling November 02, 2024 2:06p m Pharyngeal damage during airway intubati on November 02, 2024 2:06pm Epilepsy November 02, 2024 2:06p m Gastroparesis November 02, 2024 2:06p m Myasthenia gravis November 07, 2024 8:15a m Anxiety November 07, 2024 8:15a m Epilepsy November 07, 2024 8:15a m Myasthenia gravis December 11, 2024 9: 55am Anxiety December 11, 2024 9: 55am Epilepsy December 11, 2024 9: 55am Upper respiratory infection January 112024 1:35pm Anxiety January 11, 2025 1:35pm Epilepsy January 11, 2025 1:35pm Gastroparesis January 11, 2025 1:35pm Chief Complaint Admit Date ACUTE [facility] FU-RECORDS R EQUESTED October 13, 2024 2:42pm E-ORDER October 13, 2024 3:51 pm 3 M FU November 02, 2024 2:06p m SEIZURE November 04, 2024 1:51p m 4 M FU November 07, 2024 8:15a m E ORDER November 28, 2024 7:32 am Discuss xcopri December 11, 2024 9: 55am lm to reschedule-2 M FU January 11, 2025 1:35pm seizure January 27, 2025 2:08pm 3 M FU February 05, 2025 10 :31am Reason for Visit Admit Date Hospital discharge follow-up October 13, 2024 2:42pm Nausea October 13, 2024 2:42 pm Pharyngeal damage during airway intubati on October 13, 2024 2:42pm Shortness of breath October 13, 2024 2:42 pm Dietary counseling November 02, 2024 2:06p m Pharyngeal damage during airway intubati on November 02, 2024 2:06pm Epilepsy November 02, 2024 2:06p m Gastroparesis November 02, 2024 2:06p m Myasthenia gravis November 07, 2024 8:15a m Anxiety November 07, 2024 8:15a m Epilepsy November 07, 2024 8:15a m Myasthenia gravis December 11, 2024 9: 55am Anxiety December 11, 2024 9: 55am Epilepsy December 11, 2024 9: 55am Upper respiratory infection January 112024 1:35pm Anxiety January 11, 2025 1:35pm Epilepsy January 11, 2025 1:35pm Gastroparesis January 11, 2025 1:35pm Myasthenia gravis February 05, 2025 10 :31am Anxiety February 05, 2025 10 :31am Epilepsy February 05, 2025 10 :31am Reason for Referral Specialty Diagnoses / Procedures Referred By Arnaud t Referred To Contact Radiology Diagnoses MG (myasthenia gravis) (HCC) Myasthenia gravis with (acute) exacerbation (HCC) Procedures IR CVC tunneled dialysis catheter placement Perla Cantor MD [address] [address] Referral ID Status Reason Start Date Expiration Date Visits Re quested Visits Authorized [id number] Closed 07/28/2022 01/24/2023 1 1 Specialty Diagnoses / Procedures Referred By Arnaud t Referred To Contact Diagnoses Breakthrough seizure Procedures EEG, ROUTINE Edgar Ayers MD [address] [place] [address] Referral ID Status Reason Start Date Expiration Date V isits Requested Visits Authorized [id number] New Request 11/13/2022 12/08/2023 1 1 Specialty Diagnoses / Procedures Referred By Arnaud t Referred To Contact Diagnoses MG (myasthenia gravis) Renee Donald, MACHINERY MOVER-SUPERVISOR TYPESETTING [address] [place] [address] Referral ID Status Reason Start Date Expiration Date V isits Requested Visits Authorized [id number] New Request 08/12/2023 09/05/2024 1 1 Scheduling Instructions Jordy Gaitan [facility] (Orthopedic, Sports Rehab) [address], [address], [place] [address] Outpatient Care [place] (Burn, Neurological, Orthopedic, Pelvic Health, Sports Rehab) [address] [facility], [address], [place] [address] Outpatient Care [facility] (Orthopedic Rehab) [address], [address], [place] [address] Outpatient Care [place] (Orthopedic, Pelvic Health, Sports) [address] [facility], [address], [place] [address] Outpatient Care [place] - Pelvic Health [address] [facility], [address], [place] [address] Outpatient Care [place] (Orthopedic, Pelvic Health, Sports Rehab) [address], [address], [place] [address] Outpatient Care [facility] (Aquatic, Burn, Neurological, Orthopedic, Pelvic Health Rehab) [address], [facility] [address], [place] [address] Outpatient Care [place] (Burn, Neurological, Orthopedic, Pelvic Health, Sports Rehab) [address] [address] Outpatient Rehabilitation [facility] (Burn, Neurological, Orthopedic Rehab) [address] [place] [address] Outpatient Rehabilitation [facility] (Aquatic, Burn, Neurological, Orthopedic, Pelvic Health Rehab) [address], [place] [address] Outpatient Rehabilitation [place] (Burn, Neurological, Orthopedic Rehab) [address] [place] [address] Sports Medicine Rehabilitation at [facility] (Orthopedic, Sports Rehab) [address] [facility], [place] [address] Sports Medicine [facility] [address], [address], [place] [address] Sports Medicine Rehabilitation [facility] (Orthopedic, Sports Rehab) [address] [place] [address] Sports Medicine Rehabilitation [facility] (Aquatic, Orthopedic, Pelvic Health, Sports Rehab) [address] [place] [address] Sports Medicine Rehabilitation [facility] (Orthopedic, Sports Rehab) [address] [place] [address] Sports Medicine Rehabilitation [facility] (Orthopedic, Sports Rehab) [address] [facility], [address], [place] [address] Specialty Diagnoses / Procedures Referred By Arnaud rosario Referred To Contact Multispecialty Diagnoses MG (myasthenia gravis) Renee Donald R, MACHINERY MOVER-SUPERVISOR TYPESETTING [address] [facility] [place] [address] Referral ID Status Reason Start Date Expiration Date V isits Requested Visits Authorized [id number] New Request 08/12/2023 09/05/2024 1 1 Specialty Diagnoses / Procedures Referred By Contbenjamín t Referred To Contact Diagnoses Localization-related (focal) (partial) idiopathic epilepsy and epileptic syndromes with seizures of localized onset, intractable, without status epilepticus Edgar Ayers MD [address] [place] [address] Referral ID Status Reason Start Date Expiration Date V isits Requested Visits Authorized [id number] Authorized 01/22/2024 02/20/2025 1 1 Additional Source Comments INFORMATION SOURCE (unrecogn ized section and content) DATE CREATED AUTHOR 10/21/2017 [facility] DATE CREATED AUTHOR AUTHOR'S ORGANIZ ATION 10/27/2017 [facility] DATE CREATED AUTHOR AUTHOR'S ORGANIZ ATION 07/13/2018 [facility] DATE CREATED AUTHOR AUTHOR'S ORGANIZ ATION 03/19/2020 [facility] DATE CREATED AUTHOR AUTHOR'S ORGANIZ ATION 09/07/2022 [facility] DATE CREATED AUTHOR AUTHOR'S ORGANIZ ATION 11/02/2023 [facility] DATE CREATED AUTHOR AUTHOR'S ORGANIZ ATION 10/08/2024 [facility] DATE CREATED AUTHOR AUTHOR'S ORGANIZ ATION 02/03/2025 [facility] DATE CREATED AUTHOR AUTHOR'S ORGANIZ ATION 03/10/2025 [facility] Reason for Visit (unrecogniz ed section and content) Reason Comments Seizures Reason Comments Pelvic Pain Reason Comments Colposcopy Reason Comments Results Reason Comments Follow Up discuss [facility] Specialty Diagnoses / Procedures Referred By Arnaud rosario Referred To Contact [facility] Diagnoses Encounter for IUD removal Pelvic pain in female Encounter for insertion of intrauterine contraceptive device Procedures REMOVE INTRAUTERINE DEVICE REMOVE INTRAUTERINE DEVICE INSERT INTRAUTERINE DEVICE LEVONORGESTREL IU 52MG 5 YR Louise Flanagan [place] [address] [place] [address] [facility] [address] [place] [address] Referral ID Status Reason Start Date Expiration Date Visits Requested Visits Authorized [id number] Authorized Auto-Generat ed Referral 08/20/2021 05/02/2022 2 [...] days Specialty Diagnoses / Procedures Referred By Contac t Referred To Contact Radiology Diagnoses MG (myasthenia gravis) (HCC) Myasthenia gravis with (acute) exacerbation (HCC) Procedures IR CVC tunneled dialysis catheter placement Perla Cantor MD 1 [facility] [address] [place] [address] Referral ID Status Reason Start Date Expiration Date Visits Re quested Visits Authorized [id number] Closed 07/28/2022 01/24/2023 1 1 Reason Comments [...] Zhao, DO [address] [place] [address] [facility] [address] [place] [address] Referral ID Status Reason Start Date Expiration Date Visits Re quested Visits Authorized [id number] 1 1 Reason Comments Myasthenia Gravis Specialty Diagnoses / Procedures Referred By Contac t Referred To Contact Neurology Diagnoses Myasthenia gravis Gerald Gilmore MD [address] [place] [address] [facility] [address] [place] [address] Referral ID Status Reason Start Date Expiration Date V isits Requested Visits Authorized [id number] New Request 09/10/2022 10/05/2023 1 1 Specialty Diagnoses / Procedures Referred By Contac t Referred To Contact Diagnoses Seizures, MG Nancy Faith MD [address] [place] [address] [facility] [address] [place] [address] Referral ID Status Reason Start Date Expiration Date Visits Re quested Visits Authorized [id number] 1 1 Reason Comments New Patient Specialty Diagnoses / Procedures Referred By Contac t Referred To Contact Neurology Diagnoses Breakthrough seizure Merrick Lopez MD [address] [place] [address] Referral ID Status Reason Start Date Expiration Date Visits Re quested Visits Authorized [id number] Closed 11/02/2022 11/27/2023 1 1 Reason Comments Follow-up Specialty Diagnoses / Procedures Referred By Contact Referred To Contact Certified Nurse Practitioner / Neurology Diagnoses 3 month follow up Procedures RETURN PATIENT Donna Perdomo MD [address] [facility] [address] [place] [address] Renee Donald, MACHINERY MOVER-SUPERVISOR TYPESETTING [address] [address] Referral ID Status Reason Start Date Expiration Date Visits Re quested Visits Authorized [id number] Closed 12/03/2022 12/28/2023 1 1 Reason Comments Infusion Visit [facility] Specialty Diagnoses / Procedures Referred By Contac t Referred To Contact Diagnoses MG (myasthenia gravis) Pankaj Mejias MD [address] [place] [address] Infusion Suite [facility] [address] [place] [address] Referral ID Status Reason Start Date Expiration Date Visits Requested Visits Authorized [id number] Authorized - 12/16/2022 100 108 Reason Onset Date Comments Appointment Request 09/04/2022 RV SERVICER Appt Reason Onset Date Comments Insurance 05/21/2023 Lamotrigine Reason Comments Follow-up Specialty Diagnoses / Procedures Referred By Contac t Referred To Contact Certified Nurse Practitioner / Neurology Diagnoses follow up Procedures RETURN PATIENT Self, Self Renee Donald, MACHINERY MOVER-SUPERVISOR TYPESETTING [address] [place] [place] [address] Referral ID Status Reason Start Date Expiration Date V isits Requested Visits Authorized [id number] Pending Review 08/03/2023 08/27/2024 2 2 Reason Comments Ear Pain right side ear and t hroat pain x 2 days Reason Comments Medication Refill Reason Comments Critical Care Transport Reason Onset Date Comments Insurance 01/22/2025 [employer] Source Comments (unrecognize d section and content) In the event this informatio n is protected by the Federal Confidentiality of Alcohol and Drug Abuse Patient Records regulations: The Federal rules restrict any use of the information to criminally investigate or prosecute any alcohol or drug abuse patient.[facility] the event this information is protected by the Federal Confidentiality of Alcohol and Drug Abuse Patient Records regulations: The Federal rules restrict any use of the information to criminally investigate or prosecute any alcohol or drug abuse patient.[facility] the event this information is protected by the Federal Confidentiality of Alcohol and Drug Abuse Patient Records regulations: The Federal rules restrict any use of the information to criminally investigate or prosecute any alcohol or drug abuse patient.[facility] the event this information is protected by the Federal Confidentiality of Alcohol and Drug Abuse Patient Records regulations: The Federal rules restrict any use of the information to criminally investigate or prosecute any alcohol or drug abuse patient.[facility] the event this information is protected by the Federal Confidentiality of Alcohol and Drug Abuse Patient Records regulations: The Federal rules restrict any use of the information to criminally investigate or prosecute any alcohol or drug abuse patient.[facility] the event this information is protected by the Federal Confidentiality of Alcohol and Drug Abuse Patient Records regulations: The Federal rules restrict any use of the information to criminally investigate or prosecute any alcohol or drug abuse patient.[facility] the event this information is protected by the Federal Confidentiality of Alcohol and Drug Abuse Patient Records regulations: The Federal rules restrict any use of the information to criminally investigate or prosecute any alcohol or drug abuse patient.[facility] the event this information is protected by the Federal Confidentiality of Alcohol and Drug Abuse Patient Records regulations: The Federal rules restrict any use of the information to criminally investigate or prosecute any alcohol or drug abuse patient.[facility] the event this information is protected by the Federal Confidentiality of Alcohol and Drug Abuse Patient Records regulations: The Federal rules restrict any use of the information to criminally investigate or prosecute any alcohol or drug abuse patient.[facility] the event this information is protected by the Federal Confidentiality of Alcohol and Drug Abuse Patient Records regulations: The Federal rules restrict any use of the information to criminally investigate or prosecute any alcohol or drug abuse patient.[facility] the event this information is protected by the Federal Confidentiality of Alcohol and Drug Abuse Patient Records regulations: The Federal rules restrict any use of the information to criminally investigate or prosecute any alcohol or drug abuse patient.[facility] the event this information is protected by the Federal Confidentiality of Alcohol and Drug Abuse Patient Records regulations: The Federal rules restrict any use of the information to criminally investigate or prosecute any alcohol or drug abuse patient.[facility] the event this information is protected by the Federal Confidentiality of Alcohol and Drug Abuse Patient Records regulations: The Federal rules restrict any use of the information to criminally investigate or prosecute any alcohol or drug abuse patient.[facility] the event this information is protected by the Federal Confidentiality of Alcohol and Drug Abuse Patient Records regulations: The Federal rules restrict any use of the information to criminally investigate or prosecute any alcohol or drug abuse patient.[facility] the event this information is protected by the Federal Confidentiality of Alcohol and Drug Abuse Patient Records regulations: The Federal rules restrict any use of the information to criminally investigate or prosecute any alcohol or drug abuse patient.[facility] the event this information is protected by the Federal Confidentiality of Alcohol and Drug Abuse Patient Records regulations: The Federal rules restrict any use of the information to criminally investigate or prosecute any alcohol or drug abuse patient.[facility] the event this information is protected by the Federal Confidentiality of Alcohol and Drug Abuse Patient Records regulations: The Federal rules restrict any use of the information to criminally investigate or prosecute any alcohol or drug abuse patient.[facility] the event this information is protected by the Federal Confidentiality of Alcohol and Drug Abuse Patient Records regulations: The Federal rules restrict any use of the information to criminally investigate or prosecute any alcohol or drug abuse patient.[facility] the event this information is protected by the Federal Confidentiality of Alcohol and Drug Abuse Patient Records regulations: The Federal rules restrict any use of the information to criminally investigate or prosecute any alcohol or drug abuse patient.[facility] the event this information is protected by the Federal Confidentiality of Alcohol and Drug Abuse Patient Records regulations: The Federal rules restrict any use of the information to criminally investigate or prosecute any alcohol or drug abuse patient.[facility] the event this information is protected by the Federal Confidentiality of Alcohol and Drug Abuse Patient Records regulations: The Federal rules restrict any use of the information to criminally investigate or prosecute any alcohol or drug abuse patient.[facility] the event this information is protected by the Federal Confidentiality of Alcohol and Drug Abuse Patient Records regulations: The Federal rules restrict any use of the information to criminally investigate or prosecute any alcohol or drug abuse patient.[facility] the event this information is protected by the Federal Confidentiality of Alcohol and Drug Abuse Patient Records regulations: The Federal rules restrict any use of the information to criminally investigate or prosecute any alcohol or drug abuse patient.[facility] the event this information is protected by the Federal Confidentiality of Alcohol and Drug Abuse Patient Records regulations: The Federal rules restrict any use of the information to criminally investigate or prosecute any alcohol or drug abuse patient.[facility] the event this information is protected by the Federal Confidentiality of Alcohol and Drug Abuse Patient Records regulations: The Federal rules restrict any use of the information to criminally investigate or prosecute any alcohol or drug abuse patient.[facility] the event this information is protected by the Federal Confidentiality of Alcohol and Drug Abuse Patient Records regulations: The Federal rules restrict any use of the information to criminally investigate or prosecute any alcohol or drug abuse patient.[facility] the event this information is protected by the Federal Confidentiality of Alcohol and Drug Abuse Patient Records regulations: The Federal rules restrict any use of the information to criminally investigate or prosecute any alcohol or drug abuse patient.[facility] the event this information is protected by the Federal Confidentiality of Alcohol and Drug Abuse Patient Records regulations: The Federal rules restrict any use of the information to criminally investigate or prosecute any alcohol or drug abuse patient.[facility] the event this information is protected by the Federal Confidentiality of Alcohol and Drug Abuse Patient Records regulations: The Federal rules restrict any use of the information to criminally investigate or prosecute any alcohol or drug abuse patient.[facility] Care Teams (unrecognized sec tion and content) Presidential Support Specialist Relationship Specialty Start Date End Date Dylan Velarde CNP PCP - General Unspecified 02/06/16 Gerald Gilmore [address] [place] [address] Neurology 12/25/20 Presidential Support Specialist Relationship Specialty Start Date End Date Dylan Velarde, SUPERVISOR TYPESETTING PCP - General Unspecified 02/06/16 Gerald Gilmore [address] [place] [address] Neurology 12/25/20 Presidential Support Specialist Relationship Specialty Start Date End Date Dylan Velarde, SUPERVISOR TYPESETTING PCP - General Unspecified 02/06/16 Gerald Gilmore [address] [place] [address] Neurology 12/25/20 Presidential Support Specialist Relationship Specialty Start Date End Date Dylan Velarde, SUPERVISOR TYPESETTING PCP - General Unspecified 02/06/16 Gerald Gilmore [address] [place] [address] Neurology 12/25/20 Presidential Support Specialist Relationship Specialty Start Date End Date Dylan Velarde, SUPERVISOR TYPESETTING PCP - General Unspecified 02/06/16 Gerald Gilmore [address] [place] [address] Neurology 12/25/20 Presidential Support Specialist Relationship Specialty Start Date End Date Dylan Velarde, SUPERVISOR TYPESETTING PCP - General Unspecified 02/06/16 Gerald Gilmore [address] [place] [address] Neurology 12/25/20 Presidential Support Specialist Relationship Specialty Start Date End Date Dylan Velarde, SUPERVISOR TYPESETTING PCP - General Unspecified 02/06/16 Gerald Gilmore [address] [place] [address] Neurology 12/25/20 Presidential Support Specialist Relationship Specialty Start Date End Date Dylan Velarde, SUPERVISOR TYPESETTING PCP - General Unspecified 02/06/16 Gerald Gilmore [address] [place] [address] Neurology 12/25/20 Presidential Support Specialist Relationship Specialty Start Date End Date Dylan Velarde, SUPERVISOR TYPESETTING PCP - General Unspecified 02/06/16 Gerald Gilmore [address] [place] [address] Neurology 12/25/20 Presidential Support Specialist Relationship Specialty Start Date End Date Dylan Velarde, SUPERVISOR TYPESETTING PCP - General Unspecified 02/06/16 Gerald Gilmore [address] [place] [address] Neurology 12/25/20 Presidential Support Specialist Relationship Specialty Start Date End Date Dylan Velarde, SUPERVISOR TYPESETTING PCP - General Unspecified 02/06/16 Gerald Gilmore [address] [place] [address] Neurology 12/25/20 Presidential Support Specialist Relationship Specialty Start Date End Date Dylan Velarde, SUPERVISOR TYPESETTING PCP - General Unspecified 02/06/16 Gerald Gilmore [address] [place] [address] Neurology 12/25/20 Presidential Support Specialist Relationship Specialty Start Date End Date Dylan Velarde CNP PCP - General Unspecified 02/06/16 Gerald Gilmore [address] [place] [address] Neurology 12/25/20 Presidential Support Specialist Relationship Specialty Start Date End Date Dylan Velarde SUPERVISOR TYPESETTING PCP - General Unspecified 02/06/16 Gerald Gilmore [address] [place] [address] Neurology 12/25/20 Team Status: Active Member Role Status Dates Dylan Prachi RV SERVICER, RV SERVICER-C Family Provider Active Dr. Donna Perdomo MD Primary Care Provider Active Team Status: [...] Dr. Shauna Peck DO Emergency Provider Active Presidential Support Specialist Relationship Specialty Start Date End Date Dylan Velarde SUPERVISOR TYPESETTING PCP - General Unspecified 02/06/16 Gerald Gilmore [address] [place] [address] Neurology 12/25/20 Team Status: Inactive Member Role Status Dates Dr. oDnna Perdomo MD Primary Care Provider Active Dr. Shauna Peck , Attending Provider, Emergency P rovider Active Team Status: Inactive Member Role Status Dates Dr. Donna Perdomo MD Primary Care Provider Active Dr. Lesly Posada MD Emergency Provider Active Presidential Support Specialist Relationship Specialty Start Date End Date Donna Perdomo MD [address] [place] [address] PCP - General Internal Medicine 07/30/22 Presidential Support Specialist Relationship Specialty Start Date End Date Donna Perdomo MD [address] [place] [address] PCP - General Internal Medicine 07/30/22 Presidential Support Specialist Relationship Specialty Start Date End Date Donna Perdomo MD [address] [place] [address] PCP - General Internal Medicine 07/30/22 Team Status: Inactive Member Role Status Dates Dr. Donna Perdomo MD Primary Care Provider Active Dr. Lesly Posada MD Attending Provider, Emergency Provider Active Team Status: Inactive Member Role Status Dates Dr. Donna Perdomo MD Primary Care Provider Active SAKSHI DUNCAN Attending Provider, Referring Provid er Active Team [...] Brain Del Castillo MD Emergency Provider Active Presidential Support Specialist Relationship Specialty Start Date End Date Donna Perdomo MD [address] [place], [place] [id number] PCP - General Internal Medicine 10/06/22 Presidential Support Specialist Relationship Specialty Start Date End Date Dylan Velarde [address] [place] [address] PCP - General 06/30/18 07/29/22 [place] [address] [place] [address] [address] [place] [address] PCP - General Internal Medicine 07/30/22 Team Status: Inactive Member Role Status Dates Dr. Donna Perdomo MD Primary Care Provider Active Dr. Brain Del Castillo MD Attending Provider, Emergency Provi ember Active Presidential Support Specialist Relationship Specialty Start Date End Date Donna Perdomo MD [address] [place] [address] PCP - General Internal Medicine 10/06/22 Presidential Support Specialist Relationship Specialty Start Date End Date Donna Perdomo MD [address] [place] [address] PCP - General Internal Medicine 10/06/22 Presidential Support Specialist Relationship Specialty Start Date End Date Donna Perdomo MD [address] [place] [address] PCP - General Internal Medicine 10/06/22 Presidential Support Specialist Relationship Specialty Start Date End Date Donna Perdomo MD [address] [place] [address] PCP - General Internal Medicine 10/06/22 Team Status: Inactive Member Role Status Dates Dr. Donna Perdomo MD Primary Care Provider Active UNA RANKIN Attending Provider, Referring Provider A ctive Presidential Support Specialist Relationship Specialty Start Date End Date Donna Perdomo MD [address] [place] [address] PCP - General Internal Medicine 10/06/22 Presidential Support Specialist Relationship Specialty Start Date End Date Donna Perdomo MD [address] [place] [address] [address] [place] [phone] PCP - General Internal Medicine 07/30/22 Presidential Support Specialist Relationship Specialty Start Date End Date Donna Perdomo MD [address] [facility] [address] [place] [address] PCP - General Internal Medicine 10/06/22 Presidential Support Specialist Relationship Specialty Start Date End Date Donna Perdomo MD [address] [place] [address] Rd [address] [place] [address] PCP - General Internal Medicine 10/06/22 Presidential Support Specialist Relationship Specialty Start Date End Date Donna Perdomo MD [facility] [address] [place] [address] PCP - General Internal Medicine 10/06/22 Presidential Support Specialist Relationship Specialty Start Date End Date Dylan Velarde CNP PCP - General Unspecified 02/06/16 Gerald Gilmore MD Neurology 12/25/20 Presidential Support Specialist Relationship Specialty Start Date End Date Dylan Velarde CNP PCP - General Unspecified 02/06/16 Gerald Gilmore MD Neurology 12/25/20 Presidential Support Specialist Relationship Specialty Start Date End Date Dylan Velarde CNP PCP - General Unspecified 02/06/16 Gerald Gilmore MD Neurology 12/25/20 Presidential Support Specialist Relationship Specialty Start Date End Date Dylan Velarde CNP PCP - General Unspecified 02/06/16 Gerald Gilmore MD Neurology 12/25/20 Presidential Support Specialist Relationship Specialty Start Date End Date Dylan Velarde SUPERVISOR TYPESETTING PCP - General Unspecified 02/06/16 Gerald Gilmore MD Neurology 12/25/20 Presidential Support Specialist Relationship Specialty Start Date End Date Donna Perdomo MD [address] [place] [address] [address] [place] [address] PCP - General Internal Medicine 10/06/22 Team Status: Active Member Role Status Dates Dr. Leander Patel MD Primary Care Provider Active Team Status: Inactive Member Role Status Dates Dr. Donna Perdomo MD Primary Care Provider Active Start: April 12, 2024 End: April 12, 2024 Dr. Kendall Conroy MD Attending Provider Active Start: April 12, 2024 End: April 12, 2024 Dr. Kendall Conroy MD Referring Provider Active Start: April 12, 2024 End: April 12, 2024 Team Status: Inactive Member Role Status Dates Dr. Donna Perdomo MD Primary Care Provider Active Start: April 17, 2024 End: April 17, 2024 Dr. Kendall Conroy MD Attending Provider Active Start: April 17, 2024 End: April 17, 2024 Dr. Kendall Conroy MD Referring Provider Active Start: April 17, 2024 End: April 17, 2024 Team Status: Inactive Member Role Status Dates Dr. Donna Perdomo MD Primary Care Provider Active Start: July 06, 2024 End: July 06, 2024 Dr. Donna Perdomo MD Referring Provider Active Start: July 06, 2024 End: July 06, 2024 Dr. Kendall Conroy MD Attending Provider Active Start: July 06, 2024 End: July 06, 2024 Team Status: Inactive Member Role Status Dates Dr. Donna Perdomo MD Primary Care Provider Active Start: July 18, 2024 End: July 18, 2024 Dr. Kendall Conroy MD Attending Provider Active Start: July 18, 2024 End: July 18, 2024 Dr. Kendall Conroy MD Referring Provider Active Start: July 18, [...] 2024 End: August 05, 2024 Dr. Kendall Conroy MD Attending Provider Active Start: August 05, 2024 End: August 05, 2024 Dr. Kendall Conroy MD Referring Provider Active Start: August 05, [...] Active Start: August 23, 2024 Dr. Kendall Conroy MD Attending Provider Active Start: August 23, [...] 2024 End: August 23, 2024 Dr. Kendall Conroy MD Attending Provider Active Start: August 23, [...] 2024 End: October 06, 2024 Dr. Kendall Conroy MD Other Provider Active S tart: October 06, 2024 End: October 06, 2024 Dr. Kaiden Rausch DO Emergency Provider Active Start: October 06, 2024 End: October 06, 2024 Presidential Support Specialist Relationship Specialty Start Date End Date Dylan VelardeROLF PCP - General Unspecified 02/06/16 Gerald Gilmore MD Neurology 12/25/20 Team Status: Inactive Member Role Status Dates Dr. Leander Patel MD Primary Care Provider Active Start: October 06, 2024 End: October 06, 2024 Dr. Kendall Conroy MD Other Provider Active S tart: October [...] 2024 End: October 13, 2024 Louise Torrez , RV SERVICER-C Attending Provider Active Start: October 13, 2024 End: October 13, 2024 Team Status: Active Member Role Status Dates Dr. Leander Patel MD Primary Care Provider Active Start: October 13, 2024 Louise Ungerer , RV SERVICER-C Attending Provider Active Start: October 13, 2024 Louise Ungerer , RV SERVICER-C Referring Provider Active Start: October 13, 2024 Team Status: Inactive Member Role Status Dates Dr. Leander Patel MD Primary Care Provider Active Start: October 13, 2024 End: October 13, 2024 Louise Ungerer , RV SERVICER-C Attending Provider Active Start: October 13, 2024 End: October 13, 2024 Louise Ungerer , RV SERVICER-C Referring Provider Active Start: October 13, 2024 End: October 13, 2024 Team Status: Inactive Member Role/Relationship Status Dates Dr. Donna Perdomo MD Primary Care Provider Active Start: July 06, 2024 End: July 06, 2024 Dr. Donna Perdomo MD Referring Provider Active Start: July 06, 2024 End: July 06, 2024 Dr. Kendall Conroy MD Attending Provider Active Start: July 06, 2024 End: July 06, 2024 Team Status: Inactive Member Role/Relationship Status Dates Dr. Donna Perdomo MD Primary Care Provider Active Start: July 18, 2024 End: July 18, 2024 Dr. Kendall Conroy MD Attending Provider Active Start: July 18, 2024 End: July 18, 2024 Dr. Kendall Conroy MD Referring Provider Active Start: July 18, [...] 2024 End: August 05, 2024 Dr. Kendall Conroy MD Attending Provider Active Start: August 05, 2024 End: August 05, 2024 Dr. Kendall Conroy MD Referring Provider Active Start: August 05, [...] 2024 End: August 23, 2024 Dr. Kendall Conroy MD Attending Provider Active Start: August 23, [...] 2024 End: October 06, 2024 Dr. Kendall Conroy MD Other Provider Active S tart: October [...] November 02, 2024 End: November 02, 2024 Team Status: Inactive Member Role/Relationship Status Dates Dr. Donna Perdomo MD Primary Care Provider Active Start: July 18, 2024 End: July 18, 2024 Dr. Kendall Conroy MD Attending Provider Active Start: July 18, 2024 End: July 18, 2024 Dr. Kendall Conroy MD Referring Provider Active Start: July 18, [...] 2024 End: August 05, 2024 Dr. Kendall Conroy MD Attending Provider Active Start: August 05, 2024 End: August 05, 2024 Dr. Kendall Conroy MD Referring Provider Active Start: August 05, [...] 2024 End: August 23, 2024 Dr. Kendall Conroy MD Attending Provider Active Start: August 23, [...] 2024 End: October 06, 2024 Dr. Kendall Conroy MD Other Provider Active S tart: October [...] 2024 End: October 13, 2024 Louise Torrez RV SERVICER-C Attending Provider Active Start: October 13, 2024 End: October 13, 2024 Team Status: Inactive Member Role/Relationship Status Dates Dr. Leander Patel MD Primary Care Provider Active Start: October 13, 2024 End: October 13, 2024 Louise Torrez , RV SERVICER-C Attending Provider Active Start: October 13, 2024 End: October 13, 2024 Louise Torrez RV SERVICER-C Referring Provider Active Start: October 13, 2024 End: October 13, 2024 Team Status: Inactive Member Role/Relationship Status Dates Dr. Donna Perdomo MD Referring Provider Active Start: November 02, 2024 End: November 02, 2024 Dr. Leander Patel MD Attending Provider Active Start: November 02, 2024 End: November 02, 2024 Team Status: Inactive Member Role/Relationship Status Dates Dr. Everardo Espinoza MD Emergency Provider Active Start: November 04, 2024 End: November 04, 2024 Team Status: Inactive Member Role/Relationship Status Dates Dr. Donna Perdomo MD Referring Provider Active Start: November 07, 2024 End: November 07, 2024 Dr. Kendall Conroy MD Attending Provider Active Start: November 07, 2024 End: November 07, 2024 Team Status: Active Member Role/Relationship Status Dates Dr. Leander Patel MD Primary Care Provider Active Team Status: Inactive Member Role/Relationship Status Dates [...] 2024 End: August 23, 2024 Dr. Kendall Conroy MD Attending Provider Active Start: August 23, [...] 2024 End: October 06, 2024 Dr. Kendall Conroy MD Other Provider Active S tart: October [...] 2024 End: October 13, 2024 LUCY ClineC Referring Provider Active Start: October 13, 2024 End: October 13, 2024 Team Status: Inactive Member Role/Relationship Status Dates Dr. Donna Perdomo MD Referring Provider Active Start: November 02, 2024 End: November 02, 2024 Dr. Leander Patel MD Attending Provider Active Start: November 02, 2024 End: November 02, 2024 Team Status: Inactive Member Role/Relationship Status Dates Dr. Everardo Espinoza MD Attending Provider Active Start: November 04, 2024 End: November 04, 2024 Dr. Everardo Espinoza MD Emergency Provider Active Start: November 04, 2024 End: November 04, 2024 Team Status: Inactive Member Role/Relationship Status Dates Dr. Donna Perdomo MD Referring Provider Active Start: November 07, 2024 End: November 07, 2024 Dr. Kendall Conroy MD Attending Provider Active Start: November 07, 2024 End: November 07, 2024 Team Status: Active Member Role/Relationship Status Dates Dr. Leander Patel MD Primary Care Provider Active Start: November 28, 2024 Dr. Kendall Conroy MD Attending Provider Active Start: November 28, 2024 Dr. Kendall Conroy MD Referring Provider Active Start: November 28, 2024 Team Status: Inactive Member Role/Relationship Status Dates Dr. Leander Patel MD Primary Care Provider Active Start: December 11, 2024 End: December 11, 2024 Dr. Leander Patel MD Referring Provider Active Start: December 11, 2024 End: December 11, 2024 Dr. Kendall Conroy MD Attending Provider Active Start: December 11, 2024 End: December 11, 2024 Team Status: Inactive Member Role/Relationship Status [...] 2024 End: October 06, 2024 Dr. Kendall Conroy MD Other Provider Active S tart: October [...] 2024 End: October 13, 2024 Louise Torrez RV SERVICER-C Attending Provider Active Start: October 13, 2024 End: October 13, 2024 Team Status: Inactive Member Role/Relationship Status Dates Dr. Leander Patel MD Primary Care Provider Active Start: October 13, 2024 End: October 13, 2024 Louise Torrez RV SERVICER-C Attending Provider Active Start: October 13, 2024 End: October 13, 2024 Louise Torrez RV SERVICER-C Referring Provider Active Start: October 13, 2024 End: October 13, 2024 Team Status: Inactive Member Role/Relationship Status Dates Dr. Donna Perdomo MD Referring Provider Active Start: November 02, 2024 End: November 02, 2024 Dr. Leander Patel MD Attending Provider Active Start: November 02, 2024 End: November 02, 2024 Team Status: Inactive Member Role/Relationship Status Dates Dr. Everardo Espinoza MD Attending Provider Active Start: November 04, 2024 End: November 04, 2024 Dr. Everardo Espinoza MD Emergency Provider Active Start: November 04, 2024 End: November 04, 2024 Team Status: Inactive Member Role/Relationship Status Dates Dr. Donna Perdomo MD Referring Provider Active Start: November 07, 2024 End: November 07, 2024 Dr. Kendall Conroy MD Attending Provider Active Start: November 07, 2024 End: November 07, 2024 Team Status: Inactive Member Role/Relationship Status Dates Dr. Leander Patel MD Primary Care Provider Active Start: November 28, 2024 End: November 28, 2024 Dr. Kendall Conroy MD Attending Provider Active Start: November 28, 2024 End: November 28, 2024 Dr. Kendall Conroy MD Referring Provider Active Start: November 28, 2024 End: November 28, 2024 Team Status: Inactive Member Role/Relationship Status Dates Dr. Leander Patel MD Primary Care Provider Active Start: December 11, 2024 End: December 11, 2024 Dr. Leander Patel MD Referring Provider Active Start: December 11, 2024 End: December 11, 2024 Dr. Kendall Conroy MD Attending Provider Active Start: December 11, 2024 End: December 11, 2024 Team Status: Inactive Member Role/Relationship Status Dates Dr. Leander Patel MD Primary Care Provider Active Start: January 11, 2025 End: January 11, 2025 Dr. Leander Patel MD Attending Provider Active Start: January 11, 2025 End: January 11, 2025 Dr. Leander Patel MD Referring Provider Active Start: January 11, 2025 End: January 11, 2025 Team Status: Active Member Role/Relationship Status Dates Dr. Leander Patel MD Primary care physician Activ e Team Status: Inactive Member Role/Relationship Status Dates Dr. Leander Patel MD Primary care physician Activ e Start: October 03, 2024 End: October 03, 2024 BRANDON Dunaway Attending physician Active Start: October 03, 2024 End: October 03, 2024 BRANDON Dunaway Referring Provider Active Start: October 03, 2024 End: October 03, 2024 Team Status: Inactive Member Role/Relationship Status Dates Dr. Leander Patel MD Primary care physician Activ e Start: October 06, 2024 End: October 06, 2024 Dr. Kendall Conroy MD Nurse Practitioner Active Start: October 06, 2024 End: October 06, 2024 Dr. Kaiden Rausch DO Attending physician Active Start: October 06, 2024 End: October 06, 2024 Dr. Kaiden Rausch DO Emergency Department Physician A ctive Start: October 06, 2024 End: October 06, 2024 Team Status: Inactive Member Role/Relationship Status Dates Dr. Leander Patel MD Primary care physician Activ e Start: October 13, 2024 End: October 13, 2024 Dr. Leander Patel MD Referring Provider Active Start: October 13, 2024 End: October 13, 2024 Louise Torrez NP-C Attending physician Active Start: October 13, 2024 End: October 13, 2024 Team Status: Inactive Member Role/Relationship Status Dates Dr. Leander Patel MD Primary care physician Activ e Start: October 13, 2024 End: October 13, 2024 Louise Torrez RV SERVICER-C Attending physician Active Start: October 13, 2024 End: October 13, 2024 Louise Torrez RV SERVICER-C Referring Provider Active Start: October 13, 2024 End: October 13, 2024 Team Status: Inactive Member Role/Relationship Status Dates Dr. Donna Perdomo MD Referring Provider Active Start: November 02, 2024 End: November 02, 2024 Dr. Leander Patel MD Attending physician Active Start: November 02, 2024 End: November 02, 2024 Team Status: Inactive Member Role/Relationship Status Dates Dr. Everardo Espinoza MD Attending physician Active Start: November 04, 2024 End: November 04, 2024 Dr. Everardo Espinoza MD Emergency Department Physician Active Start: November 04, 2024 End: November 04, 2024 Team Status: Inactive Member Role/Relationship Status Dates Dr. Donna Perdomo MD Referring Provider Active Start: November 07, 2024 End: November 07, 2024 Dr. Kendall Conroy MD Attending physician Active Start: November 07, 2024 End: November 07, 2024 Team Status: Inactive Member Role/Relationship Status Dates Dr. Leander Patel MD Primary care physician Activ e Start: November 28, 2024 End: November 28, 2024 Dr. Kendall Conroy MD Attending physician Active Start: November 28, 2024 End: November 28, 2024 Dr. Kendall Conroy MD Referring Provider Active Start: November 28, 2024 End: November 28, 2024 Team Status: Inactive Member Role/Relationship Status Dates Dr. Leander Patel MD Primary care physician Activ e Start: December 11, 2024 End: December 11, 2024 Dr. Leander Patel MD Referring Provider Active Start: December 11, 2024 End: December 11, 2024 Dr. Kendall Conroy MD Attending physician Active Start: December 11, 2024 End: December 11, 2024 Team Status: Inactive Member Role/Relationship Status Dates Dr. Leander Patel MD Primary care physician Activ e Start: January 11, 2025 End: January 11, 2025 Dr. Leander Patel MD Attending physician Active Start: January 11, 2025 End: January 11, 2025 Dr. Leander Patel MD Referring Provider Active Start: January 11, 2025 End: January 11, 2025 Team Status: Inactive Member Role/Relationship Status Dates Dr. Leander Patel MD Primary care physician Activ e Start: January 11, 2025 End: January 11, 2025 Dr. Leander Patel MD Attending physician Active Start: January 11, 2025 End: January 11, 2025 Dr. Leander Patel MD Referring Provider Active Start: January 11, 2025 End: January 11, 2025 Team Status: Inactive Member Role/Relationship Status Dates Dr. Leander Patel MD Primary care physician Activ e Start: January 18, 2025 End: January 18, 2025 Dr. Kendall Conroy MD Attending physician Active Start: January 18, 2025 End: January 18, 2025 Dr. Kendall Conroy MD Referring Provider Active Start: January 18, 2025 End: January 18, 2025 Team Status: Inactive Member Role/Relationship Status Dates Dr. Leander Patel MD Primary care physician Activ e Start: January 27, 2025 End: January 27, 2025 Dr. Kaiden Rausch DO Emergency Departme nt Physician Active Start: January 27, 2025 End: January 27, 2025 Team Status: Inactive Member Role/Relationship Status Dates Dr. Leander Patel MD Primary care physician Activ e Start: October 13, 2024 End: October 13, 2024 Dr. Leander Patel MD Referring Provider Active Start: October 13, 2024 End: October 13, 2024 BECCA Cline Attending physician Active Start: October 13, 2024 End: October 13, 2024 Team Status: Inactive Member Role/Relationship Status Dates Dr. Leander Patel MD Primary care physician Activ e Start: October 13, 2024 End: October 13, 2024 BECCA Cline Attending physician Active Start: October 13, 2024 End: October 13, 2024 BECCA Cline Referring Provider Active Start: October 13, 2024 End: October 13, 2024 Team Status: Inactive Member Role/Relationship Status Dates Dr. Donna Perdomo MD Referring Provider Active Start: November 02, 2024 End: November 02, 2024 Dr. Leander Patel MD Attending physician Active Start: November 02, 2024 End: November 02, 2024 Team Status: Inactive Member Role/Relationship Status Dates Dr. Everardo Espinoza MD Attending physician Active Start: November 04, 2024 End: November 04, 2024 Dr. Everardo Espinoza MD Emergency Department Physician Active Start: November 04, 2024 End: November 04, 2024 Team Status: Inactive Member Role/Relationship Status Dates Dr. Donna Perdomo MD Referring Provider Active Start: November 07, 2024 End: November 07, 2024 Dr. Kendall Conroy MD Attending physician Active Start: November 07, 2024 End: November 07, 2024 Team Status: Inactive Member Role/Relationship Status Dates Dr. Leander Patel MD Primary care physician Activ e Start: November 28, 2024 End: November 28, 2024 Dr. Kendall Conroy MD Attending physician Active Start: November 28, 2024 End: November 28, 2024 Dr. Kendall Conroy MD Referring Provider Active Start: November 28, 2024 End: November 28, 2024 Team Status: Inactive Member Role/Relationship Status Dates Dr. Leander Patel MD Primary care physician Activ e Start: December 11, 2024 End: December 11, 2024 Dr. Leander Patel MD Referring Provider Active Start: December 11, 2024 End: December 11, 2024 Dr. Kendall Conroy MD Attending physician Active Start: December 11, 2024 End: December 11, 2024 Team Status: Inactive Member Role/Relationship Status Dates Dr. Leander Patel MD Primary care physician Activ e Start: January 11, 2025 End: January 11, 2025 Dr. Leander Patel MD Attending physician Active Start: January 11, 2025 End: January 11, 2025 Dr. Leander Patel MD Referring Provider Active Start: January 11, 2025 End: January 11, 2025 Team Status: Inactive Member Role/Relationship Status Dates Dr. Leander Patel MD Primary care physician Activ e Start: January 11, 2025 End: January 11, 2025 Dr. Leander Patel MD Attending physician Active Start: January 11, 2025 End: January 11, 2025 Dr. Leander Patel MD Referring Provider Active Start: January 11, 2025 End: January 11, 2025 Team Status: Inactive Member Role/Relationship Status Dates Dr. Leander Patel MD Primary care physician Activ e Start: January 18, 2025 End: January 18, 2025 Dr. Kendall Conroy MD Attending physician Active Start: January 18, 2025 End: January 18, 2025 Dr. Kendall Conroy MD Referring Provider Active Start: January 18, 2025 End: January 18, 2025 Team Status: Inactive Member Role/Relationship Status Dates Dr. Leander Patel MD Primary care physician Activ e Start: January 27, 2025 End: January 27, 2025 Dr. Kaiden Rausch DO Attending physician Active Start: January 27, 2025 End: January 27, 2025 Dr. Kaiden Rausch DO Emergency Departne nt Physician Active Start: January 27, 2025 End: January 27, 2025 Team Status: Inactive Member Role/Relationship Status Dates Dr. Kendall Conroy MD Attending physician Active Start: February 05, 2025 End: February 05, 2025 Dr. Leander Patel MD Primary care physician Activ e Start: February 05, 2025 End: February 05, 2025 Dr. Leander Patel MD Referring Provider Active Start: February 05, 2025 End: February 05, 2025 Presidential Support Specialist Relationship Specialty Start Date End Date Donna Perdomo MD PCP - General Internal Medicine 10/06/22 Presidential Support Specialist Relationship Specialty Start Date End Date Donna Perdomo MD PCP - General Internal Medicine 10/06/22 Presidential Support Specialist Relationship Specialty Start Date End Date Donna Perdomo MD PCP - General Internal Medicine 10/06/22 Goals (unrecognized section and content) Goals may [...] Garcia RN) 0022 (Given - Provider: Jerrica Torres, VANESSA)0807 (Given - Provider: Alexis Melo, VANESSA)1349 (Given - Provider: Alexis Melo, VANESSA)2107 (Given - Provider: Georgia Shafer RN) 1103 (Given - Provider: Cheryl Bales, VANESSA)1400 (Given - Provider: Cheryl Bales RN) albumin [...] with hypoproteinemia 0940 (New Bag - Provider: Ilda Duffy RN)1056 (Stopped - Provider: Ilda Duffy RN) apixaban (Eliquis) tablet 5 mg 5 mg, Oral, 2 times daily, First dose on Wed07/30/22 at 2100, Anticoagulant 0823 (Given - Provider: Estella Garcia RN)221 (Given - Provider: Jerrica Torres RN) 08 (Given - Provider: Alexis Melo, RN)210 (Given - Provider: Georgia Shafer, VANESSA) 110 (Given - Provider: Cheryl Bales, RN) calcium gluconate 1,900 mg in sodium [...] 10 mg, Oral, Daily, First dose on Wed07/30/22 at 1810 2212 (Given - Provider: Jerrica Torres RN) 2106 (Given - Provider: Georgia Shafer RN) heparin flush injection 100 Units 100 Units, IntraCATHeter, Every 12 hours, First dose on Wed07/31/22 at 0810, Line Care. Use 10 mL or larger syringe. 0823 (Given - Provider: Estella Garcia RN)2214 (Given - Provider: Jerrica Torres RN) 08 (Given - Provider: Alexis Melo, RN)210 (Given - Provider: Georgia Shafer, VANESSA) 1105 (Given - Provider: Cheryl Blaes, RN)1423 (Given - Provider: Cheryl Bales RN) lamoTRIgine (LaMICtal) tablet 100 mg 100 mg, Oral, Daily, First dose on Wed07/30/22 at 1810 0823 (Given - Provider: Estella Garcia RN) 0808 (Given - Provider: Alexis Melo RN) 1103 (Given - Provider: Cheryl Bales RN) lamoTRIgine (LaMICtal) tablet 250 mg 250 mg, Oral, Nightly, First dose (after last modification) on Wed07/30/22 at 2100 2213 (Given - Provider: Jerrica Torres RN) 2109 (Given - Provider: Georgia Shafer, VANESSA) OXcarbazepine (Trileptal) tablet 150 mg 150 mg, Oral, Daily, First dose on Wed07/30/22 at 1810 2213 (Given - Provider: Jerrica Torres RN) 2109 (Given - Provider: Georgia Shafer RN) sodium chloride 0.9% (NS) flush 10 mL 10 mL, IntraCATHeter, Every 12 hours, First dose on Wed07/31/22 at 0810, Line Care. Use 10 mL or larger syringe. 0823 (Given - Provider: Estella Garcia RN)2215 (Given - Provider: Jerrica Torres RN) 0810 (Not Given - Provider: Alexis Melo RN - Reason: Other)210 (Given - Provider: Georgia Shafer, VANESSA) 1105 (Given - Provider: Cheryl aBles, RN)1423 (Given - Provider: Cheryl Bales RN) sodium chloride 0.9% (NS) flush 5-40 mL 5-40 mL, IntraVENous, Every 12 hours, First dose on Wed07/30/22 at 1810, For Line Patency: Peripheral IV [...] mL/lumen 0545 (Given - Provider: Shiela Kimble, VANESSA)1400 (Given - Provider: Estella Garcia, RN) 0703 (Given - Provider: Jerrica Torres, VANESSA)1810 (Not Given - Provider: Alexis Melo, VANESSA - Reason: Other) 0617 (Given - Provider: Georgia Shafer, VANESSA)1810 (Canceled Entry - Provider: Automatic Discharge Provider - Comment: Automatically canceled at discontinue of medication order) zonisamide (Zonegran) capsule 200 mg 200 mg, Oral, Daily, First dose on Taylor 07/30/22 at 1810 0823 (Given - Provider: Estella Garcia, RN) 0808 (Given - Provider: Alexis Melo, RN) 1102 (Given - Provider: Cheryl Bales RN) zonisamide (Zonegran) capsule 300 mg 300 mg, Oral, Nightly, First dose on Wed07/31/22 at 2100 2212 (Given - Provider: Jerrica Torres, VANESSA) 2111 (Given - Provider: Georgia Shafer, VANESSA) [...] line care, Starting on Taylor 07/30/22 at 1734 1123 (Given - Provider: Narcisa Rodas, VANESSA) heparin injection 2,200 Units 2,200 Units, IntraCATHeter, [...] at 1805 0925 (Given - Provider: Estella Garcia RN) 0024 (Given - Provider: Jerrica Torres RN)1348 (Given - Provider: Alexis Melo RN) ondansetron (Zofran) injection 4 mg(Linked Group 2) [...] 8 hours PRN, nausea, vomiting, Starting on Wed07/30/22 at 1806, 1st Line. If inadequate response [...] C), Starting on Taylor 07/30/22 at 1806
Administer if oral route cannot [...] heparin)., Indications: history of clots in port 943 (Given - Provider: Gina Rodríguez RN)1734 (Given [...] Until Discontinued 193 (Given - Provider: Jennifer Barry, RN) 2003 (Given - Provider: Juanito Mirza, VANESSA) Folic acid (FOLVITE) tablet 1 mg 1 mg, Oral, DAILY, First dose on 10/31/22 at 0900, Until Discontinued 943 (Given - Provider: Gina Rodríguez RN) 1035 (Given - Provider: Gina Rodríguez RN) 0816 (Given - Provider: Juvencio Modi, RN) lamoTRIgine (laMICtal) tablet 150 mg 150 mg, Oral, DAILY, First dose (after last modification) on Sat 23 at 0900, Until Discontinued 0944 (Given - Provider: Gina Rodríguez RN) 1035 (Given - Provider: Gina Rodríguez RN) 0816 (Given - Provider: Juvencio Modi, VANESSA) lamoTRIgine (laMICtal) tablet 250 mg 250 mg, [...] 2004 (Given - Provider: Juanito Mirza, RN) Senna (SENOKOT) tablet 8.6 mg 8.6 mg, Oral, DAILY, First dose on Wed11/02/22 at 0900, Until Discontinued 08 (Given - Provider: Juvencio Modi, VANESSA) zonisamide [...] 0817 (Given - Provider: Juvencio Modi, RN) zonisamide (ZONEGRAN) capsule 300 mg(Linked Group 1) 300 mg, Oral, DAILY AT BEDTIME, First dose on Wed10/30/22 at 0200, Until Discontinued, Contact pharmacy to crush/open due to hazardous classification. Powder supplied by pharmacy may be placed in water, apple juice or applesauce and administered. 1934 (Given - Provider: Jennifer Barry RN) 2004 (Given - Provider: Juanito Mirza, VANESSA) PRN Medication Order 10/31/2022 11/01/2022 11/02/2022 Acetaminophen (TYLENOL) tablet 650 mg 650 mg, Oral, EVERY 6 HOURS NEEDED, Starting on Taylor 10/29/22 at 2244, Until Wed11/02/22 at 1614, Mild Pain, Oral temp > 100.4 F, Maximum dose of acetaminophen is 4000 mg from all sources in 24 hours. 0548 (Given - Provider: Jennifer Barry RN)0951 (Given - Provider: Gina Rodríguez, RN)1935 (Given - Provider: Jennifer Barry RN) 1043 (Given - Provider: Gina Rodríguez RN) Heparin 100 units/mL flush injection 5 mL 5 mL, Intravenous, ONCE DIRECTED, 1 dose, Starting on Wed11/02/22 at 1345, Until Wed11/02/22 at 1614, Flush, De-access port LORazepam (ATIVAN) tablet 0.5 mg 0.5 mg, Oral, 3 TIMES DAILY NEEDED, Starting on Wed10/30/22 at 0448, Until Wed11/02/22 at 1614, Anxiety 193 (Given - Provider: Jennifer Barry RN) 2004 [...] 1st Line 0958 (Given - Provider: Gina Rodríguez RN) Sodium chloride 0.9% IV solution 250 mL Intravenous, at 20 mL/hr, NEEDED, Starting on Wed10/29/22 at 2242, Until Wed11/02/22 at 1614, Carrier [...] Intravenous, EVERY 6 HOURS NEEDED, Starting on Wed10/29/22 at 2244, Until Wed11/02/22 at 1614, Nausea / Vomiting, 1st line for Nausea/Vomiting Or Ondansetron (ZOFRAN) tablet 4 mgJump to med 4 mg, Oral, EVERY 6 HOURS NEEDED, Starting on Wed10/29/22 at 2244, Until 11/02/22 at 1614, Nausea [...] 0817 (Given - Provider: Juvencio Modi, VANESSA) Escitalopram (LEXAPRO) tablet 10 mg 10 mg, Oral, DAILY AT BEDTIME, First dose on Wed10/30/22 at 2100, Until Discontinued 1935 (Given - Provider: Jennifer Barry, VANESSA) 2003 (Given - Provider: Juanito Mirza RN) Folic acid (FOLVITE) tablet 1 mg 1 mg, Oral, DAILY, First dose on 10/31/22 at 0900, Until Discontinued 44 (Given - Provider: Gina Rodríguez RN) 1035 (Given - Provider: Gina Rodríguez RN) 0816 (Given - Provider: Juvencio Modi, VANESSA) lamoTRIgine (laMICtal) tablet 150 mg 150 mg, Oral, DAILY, First dose (after last modification) on 10/31/22 at 0900, Until Discontinued 44 (Given - Provider: Gina Rodríguez RN) 1035 (Given - Provider: Gina Rodríguez RN) 0816 (Given - Provider: Juvencio Modi RN) lamoTRIgine (laMICtal) tablet 250 mg 250 mg, Oral, DAILY AT BEDTIME, First dose on Wed10/30/22 at 0130, Until Discontinued 1933 (Given - Provider: Jennifer Barry RN) 2003 (Given - Provider: Juanito Mirza, RN) OXcarbazepine (TRILEPTAL) tablet 150 mg 150 mg, Oral, DAILY AT BEDTIME, First dose on Wed10/30/22 at 2100, Until Discontinued, Swallow tablet whole; do not crush, split or chew. Contact pharmacy if alternate route or dose is needed. 1934 (Given - Provider: Jennifer Barry, VANESSA) 2004 (Given - Provider: Juanito Mirza, RN) Senna (SENOKOT) tablet 8.6 mg 8.6 mg, Oral, DAILY, First dose on Wed11/02/22 at 0900, Until Discontinued 816 (Given - Provider: Juvencio Modi, RN) zonisamide (ZONEGRAN) capsule 200 mg(Linked Group 1) 200 mg, Oral, DAILY, First dose on Wed10/30/22 at 0900, Until Discontinued, Contact pharmacy to crush/open due to hazardous classification. Powder supplied by pharmacy may be placed in water, apple juice or applesauce and administered. 0945 (Given - Provider: Gina Rodríguez RN) 5 (Given - Provider: Gina Rodríguez RN) 08 (Given - Provider: Juvencio Modi, RN) zonisamide (ZONEGRAN) capsule 300 mg(Linked Group [...] Jennifer Barry RN)0951 (Given - Provider: Gina Rodríguez, RN)1935 (Given - Provider: Jennifer Barry RN) 1043 (Given - Provider: Gina Rodríguez, RN) Heparin 100 units/mL flush injection 5 [...] Intravenous, EVERY 6 HOURS NEEDED, Starting on Wed10/29/22 at 2244, Until Wed11/02/22 at 1614, Nausea / Vomiting, 1st line for Nausea/Vomiting Polyethylene glycol (MIRALAX) packet 17 g 17 g, Oral, DAILY NEEDED, Starting on Taylor 10/29/22 at 2244, Until Wed11/02/22 at 1614, Constipation 1st Line 957 (Given - Provider: Gina Rodríguez, VANESSA) Sodium [...] BE BASED ON THE PRIMARY CLINICAL RECORDS. [facility] [employer] [facility]. provides no warranty or guarantee of the accuracy or completeness of information in this document.
[2025-04-21 10:06] LABS: Hematocrit 39.6 % (37-47); Hemoglobin 13.2 g/dL (12.0-15.0); Immature Granulocytes Count 0.010 X10^3/uL (0.0-0.0); Mean Corp Hgb Conc 33.3 g/dL (32-36); Mean Corpuscular Volume 90.4 fL (81-99); Mean Platelet Vol. 9.5 fl (6.2-12.0); NRBC Flagged by Analyzer 0 % (0-5); Platelet Count 273 K/mm3 (150-450); RBC Distribution Width CV 12.4 % (11.6-14.6); RBC Distribution Width SD 41.8 fl (35.1-43.9); Red Blood Count 4.38 M/mm3 (4.2-5.4); White Blood Count 5.7 K/mm3 (4.4-11.0)
[2025-04-21 10:45] LABS: Cholesterol 171 mg/dL (<=200); Low Density Lipoprotein Calc. 91 mg/dL; Triglycerides 96 mg/dL; Very Low Density Lipoprotein 19 mg/dL (5-40); cholesterol:hdl ratio screen 2.74
[2025-04-21 10:47] LABS: Ammonia 36.8 umol/L (11-51)
[2025-04-21 10:49] LABS: AST(SGOT) 20 U/L (<=31); Alanine Aminotransfer ALT/SGPT 15 U/L (<=34); Albumin, Serum 4.5 g/dL (3.5-5.0); Alkaline Phosphatase 82 U/L (35-104); Anion Gap 12 (5-15); BUN 10 mg/dL (4-19); BUN/Creat Ratio 13.2 RATIO (10-20); Calcium,Total 9.0 mg/dL (7.6-11.0); Carbon Dioxide 20.0 mmol/L (21.0-32.0); Chloride 107 mmol/L (98-108); Globulin 2.4 g/dL (2.2-4.2); Glucose 101 mg/dL (70-99); Magnesium 2.1 mg/dL (1.5-2.2); Potassium 3.7 mmol/L (3.3-5.1); Vitamin B12 596 pg/mL (180-914)
[2025-04-21 10:58] LABS: Free T3 2.8 pg/mL (2.18-3.98); T4 Total, Thyroxin 5.4 ug/dL (4.8-13.9)
[2025-04-21 11:09] LABS: FOLATES,SERUM (FOLIC ACID) 13.80 ng/mL (4.60-34.80)
[2025-04-25 12:08] LABS: ANTINUCLEAR ANTIBODIES DIRECT Positive (Negative); Anti-Chromatin <0.2 AI (0.0-0.9); Anti-Jo <0.2 AI (0.0-0.9); Anti-dsDNA Ab 1 IU/mL (0-9); SJOGREN'S Anti-SS-A test < 0.2 AI (0.0-0.9); SJOGREN'S Anti-SS-B test < 0.2 AI (0.0-0.9); Vitamin D 1,25-Dihydroxy 50.9 pg/mL (24.8-81.5)
[2025-04-27 09:07] LABS: Immunoglobulin A 285 mg/dL (87-352); VITAMIN B6 3.2 ug/L (3.4-65.2); Vitamin B1, Thiamine 72.5 nmol/L (66.5-200.0)
== END | disposition home or self-care (01) ==
PROVIDERS: PCP Internal Medicine; Referring Provider Physician Assistant
DX: E53.8 Deficiency of other specified B group vitamins (principal); G70.00 Myasthenia gravis without (acute) exacerbation; G40.909 Epilepsy, unspecified, not intractable, without status epilepticus; K31.84 Gastroparesis; E72.20 Disorder of urea cycle metabolism, unspecified; E55.9 Vitamin D deficiency, unspecified; E05.90 Thyrotoxicosis, unspecified without thyrotoxic crisis or storm; R53.83 Other fatigue
CPT/HCPCS: 36415; 80053; 80061; 82140; 82542; 82607; 82652; 82746; 82784; 83516; 83735; 84207; 84425; 84436; 84439; 84443; 84481; 85025; 86038; 86225; 86235; 86255; 86340